=== PATIENT | female | born 1955 | race Caucasian/White ===

== ENCOUNTER → 2017-03-14 12:45 | Outpatient (CLI) | payer OTHER, MEDICAID, SELFPAY ==
--- NOTE | 2017-03-14 13:45 | RAD_ITS ---
STUDY: SWALLOWING STUDY REASON FOR EXAM: Female, 62 years old. Possible aspiration. TECHNIQUE: The examination was performed with Speech Pathology in attendance. Under fluoroscopic observation, the patient ingested thin barium, thick barium, barium pudding, and barium coated cracker. FLUOROSCOPY TIME: 1:42 minutes/seconds. 1550 fluoroscopic images were obtained. RADIOLOGIST INVOLVEMENT: Radiologist was present and providing direct supervision. COMPARISON: None. FINDINGS: The following was observed during swallowing of the various mixtures of barium: Thin Barium: There was no evidence of aspiration or laryngeal penetration. Barium Pudding: There was no evidence of aspiration or laryngeal penetration. Barium Coated Cracker: There was no evidence of aspiration or laryngeal penetration. RAD/Swallowing Function w/Video IMPRESSION: Normal tailored barium swallow study. No evidence of increased risk for aspiration. The swallow study findings were discussed with the patient by the speech pathologist at the conclusion of the examination. Please see speech pathology report for more information and recommendations. Electronically Signed: Lance Back MD at 14:30 EST Tel [phone], Service support ,
--- NOTE | 2017-03-14 14:00 | SP.MBSS_ITS ---
PRIMARY / SECONDARY DIAGNOSIS: dysphagia (R13.10) REFERRING PHYSICIAN: Dr. Pete Bazzi MD CURRENT DIET: regular textures, thin liquids DENTITION: WFL MENTAL STATUS: WFL RESPIRATORY STATUS: O2 at 3L/min via nasal cannula PREVIOUS MODIFIED BARIUM SWALLOW STUDY: none REASON FOR REFERRAL: Patient is a 62 year old female currently admitted to [facility] referred for a modified barium swallow (MBS) study to objectively assess the Patients oropharyngeal swallow function under fluoroscopy secondary to the diagnosis of recurrent pneumonias with E. coli and MRSA complicated by the Patients severely deconditioned and weakened following multiple recent hospital admissions complicated by steroid-induced myopathy. Patient and Patients present, both report intermittent coughing with ingestion of solids and liquids, with the Patients holistic specialist recommending MBS completion due to concern that the Patient is aspirating repeatedly leading to recurrent pneumonias. No formal workup completed to date regarding dysphagia, with the Patient reporting frustration over her current medical presentation, reports weight has decreased over the last 2 months. 03/08/2017 CT/Chest without Contrast revealed persistent right upper lobe nodules, which do appear slightly smaller than the prior study; evidence of cavitation within one of these lesions , differential considerations include infection, inflammatory processes, or malignancy; may benefit from a PET/CT or continued short-term interval follow-up , tissue sampling may ultimately be necessary; patchy bilateral airspace disease , increased from the prior study may represent superimposed pneumonia. MEDICAL HISTORY: Chronic obstructive lung disease, steroid induced myopathy, suspected aspiration into airway, asthma, gastroesophageal reflux disease, recurrent healthcare associated and MRSA pneumonia, acute respiratory failure, pulmonary embolism, suspected acute bronchiolitis, healthcare-associated pneumonia, benign essential hypertension, atrial fibrillation with rapid ventricular response, history of pulmonary embolism, atrial tachycardia, precordial chest pain, hyperlipidemia, morbid obesity, diabetes mellitus, obstructive sleep apnea , acute kidney injury, insomnia, allergic rhinitis, deep venous thrombosis, venous thromboembolism, weakness, coarse tremors, severe sepsis, umbilical hernia, cellulitis of right lower extremity STUDY FINDINGS: Patient participated in a Modified Barium Swallow (MBS) study on 03/14/2017. Dr. Back was the radiologist present for this evaluation. This study was recorded in the lateral view and images were sent to PACs for storage. The following consistencies were presented to this patient for analysis of oropharyngeal swallow function: thin liquids, pudding, and a regular textured, Anomi Doone cookie. Results of the MBS are as follows: PENETRATION / ASPIRATION SCALE (LONG): 1 = does not enter airway 2 = enters airway/above vocal folds/ejected 3 = enters airway/above vocal folds/not ejected 4 = enters airway/contacts vocal folds/ejected 5 = enters airway/contacts vocal folds/not ejected 6 = enters airway/below vocal folds/ejected 7 = enters airway/below vocal folds/not ejected despite effort 8 = enters airway/below vocal folds/no effort PENETRATION / ASPIRATION SCALE (SCORE): Thin liquid - 5 mL tsp.: 1 Thin liquids via cup (single sip): 1 Thin liquids via cup (single sip): 1 Thin liquids via cup (single sip): 1 Thin liquids via cup (sequential swallows): 1 Thin liquids via straw (single sip): 1 Thin liquids via straw (single sip): 1 Thin liquids via straw (sequential swallows): 1 Pudding via spoon: 1 Regular textured cookie: 1 Thin liquids via straw (single sip): 1 Thin liquids via straw (sequential swallows): 1 IMPRESSION: DIAGNOSIS: mild oropharyngeal dysphagia (R13.12) ORAL PHASE CHARACTERIZED BY: LABIAL SEAL: no labial escape TONGUE CONTROL DURING BOLUS MANIPULATION: intermittent posterior escape of less than half of bolus with thin liquids BOLUS PREPARATION / MASTICATION: slow prolonged chewing/mashing with complete recollection BOLUS TRANSPORT / LINGUAL MOTION: brisk tongue motion ORAL RESIDUE: intermittent trace residue lining oral structures PHARYNGEAL PHASE CHARACTERIZED BY: INITIATION OF PHARYNGEAL SWALLOW: bolus head in valleculae at first hyoid excursion SOFT PALATE ELEVATION: no bolus between soft palate and pharyngeal wall LARYNGEAL ELEVATION: complete superior movement of thyroid cartilage with complete approximation of arytenoids cartilage to epiglottic petiole ANTERIOR HYOID EXCURSION: partial anterior movement EPIGLOTTIC MOVEMENT: complete epiglottic inversion LARYNGEAL VESTIBULE CLOSURE AT HEIGHT OF SWALLOW: complete laryngeal vestibule closure with no air/contrast in laryngeal vestibule PHARYNGEAL STRIPPING WAVE: pharyngeal stripping wave present / complete PHARYNGOESOPHAGEAL SEGMENT OPENING: complete distension and complete duration with no obstruction of flow TONGUE BASE RETRACTION: trace column of contrast between tongue base and posterior pharyngeal wall PHARYNGEAL RESIDUE: trace residue within or on pharyngeal structures ESOPHAGEAL PHASE CHARACTERIZED BY: ESOPHAGEAL BOLUS CLEARANCE IN THE UPRIGHT POSITION: complete clearance; esophageal coating DIET TEXTURE RECOMMENDATIONS: Will recommend a regular textured, thin liquid diet. COMPENSATORY STRATEGIES RECOMMENDED: reduced bolus volume, seated upright at 90 degrees during PO intake, remain upright for 30-60 minutes post meal (GERD precaution), medications with liquid chaser INTERPRETATION OF RESULTS: Patient presents with mild oropharyngeal dysphagia (R13.12) likely secondary to presbyphagia vs. recent severe deconditioning and weakened following multiple recent hospital admissions complicated by steroid-induced myopathy. Oral phase marked by mastication inefficiency (mild) with noted intermittent mandibular fasciculation; and suboptimal lingual control (mild) with noted intermittent premature bolus loss. Pharyngeal phase marked by delayed pharyngeal swallow onset timing (mild) placing the Patient at somewhat higher risk of aspiration particularly when fatigued or consuming PO intake in suboptimal positioning. Would consider somewhat within the expected norms for age matched peers with exception of occasional mandibular fasciculations. Somewhat strong performance with consideration of the Patients extensive medical history, cannot account for fatigue during limited exposure time under fluoroscopy. RECOMMENDATIONS: Patient may benefit from 1-2 additional skilled speech-language intervention sessions targeting diet texture management via bedside trials and meal analysis completion; and training and implementation of recommended compensatory strategies, though upon review of the Patients recent medical documentation, the Patient would most likely benefit from increased therapeutic time with physical and occupational therapies. ADDITIONAL COMMENTS/RECOMMENDATIONS: Results and recommendations were discussed with the Patient immediately following MBS completion, with the Patient verbalizing understanding and agreement with all recommendations and education provided. IMAGE COUNT: 1550 G-CODES: SWALLOWING [id number] Current Status: CI SWALLOWING [id number] Goal Status: CI
== END ==
PROVIDERS: Family Provider Family Medicine; PCP Family Medicine; Visit Provider Internal Medicine Critical Care Medicine
DX: R13.10 Dysphagia, unspecified (principal)
CPT/HCPCS: 74230; 92611

== ENCOUNTER → 2017-04-04 07:03 | Outpatient (CLI) | payer OTHER, MEDICAID, SELFPAY ==
--- NOTE | 2017-04-04 07:06 | CT_ITS ---
STUDY: CT CHEST WITHOUT CONTRAST REASON FOR EXAM: Female, 62 years old. In which is nodular density in the right upper lobe. RADIATION DOSAGE (If Supplied By Facility): CTDIvol = ( 20.73 ) mGy, DLP = ( 287.22 ) mGycm TECHNIQUE: Transaxial imaging was performed without the administration of intravenous contrast material. Multiplanar coronal and sagittal images were reformatted. Individualized dose optimization techniques were used for this CT. COMPARISON: Comparison is made with prior study dated March 08, 2017. FINDINGS: The patient was scheduled for CT-guided biopsy of the nodular density in the peripheral aspect of the right upper lobe. The previously seen inhomogeneous nodular density has decreased in size. It presently measures 1.6 cm x 1.1 cm. The air fluid level is not seen at this time. Due to its location, no feasible access to the nodule wasn't available. The biopsy was canceled. CT/Limited or Localized F/U CT IMPRESSION: Interval decrease in size of the peripheral nodule in the right upper lobe. No safe access to the nodule for biopsy was present. Electronically Signed: Lance Back MD at 12:37 EST Tel [phone], Service support ,
[2017-04-04 08:37] VITALS: BP 134/59; PULSE 99; RESP 20; TEMP 37; O2SAT 99; BMI 43.0
[2017-04-04 09:03] LABS: International Normalized Ratio 1.1; Prothrombin Time (Protime)PT. 13.5 SECONDS (11.7-14.9)
[2017-04-04 09:04] LABS: Partial Thromboplast Time 25.6 Seconds (24.1-36.2)
[2017-04-04 09:09] LABS: Hematocrit 32.6 % (37-47); Mean Corp Hgb Conc 30.7 g/gl (32-36); Mean Corpuscular Hgb 31.1 pg (27.0-32.0); Mean Corpuscular Volume 101.2 fL (81-99); Mean Platelet Vol. 9.6 fl (6.2-12.0); Platelet Count 483 K/mm3 (150-450); RBC Distribution Width CV 14.9 % (11.6-14.6); RBC Distribution Width SD 53.1 fl (35.1-43.9); Red Blood Count 3.22 M/mm3 (4.2-5.4); White Blood Count 7.1 K/mm3 (4.4-11.0)
[2017-04-04 09:18] LABS: Scan Indicated on CBC? Y/N NO
== END ==
PROVIDERS: Family Provider Family Medicine; PCP Family Medicine; Visit Provider Nurse Practitioner Acute Care
DX: R91.1 Solitary pulmonary nodule (principal)
CPT/HCPCS: 36415; 76380; 85027; 85610; 85730

== ENCOUNTER 2017-04-24 07:58 | Emergency (ER) | payer OTHER, MEDICAID, SELFPAY ==
[2017-04-24 08:00] VITALS: BP 105/66; PULSE 80; RESP 20; TEMP 36.9; O2SAT 100; BMI 42.2
--- NOTE | 2017-04-24 08:01 | EKG12_ITS ---
Test Reason : SOB Blood Pressure : / mmHG Vent. Rate : 076 BPM Atrial Rate : 076 BPM P-R Int : 160 ms QRS Dur : 084 ms QT Int : 416 ms P-R-T Axes : 059 -38 -05 degrees QTc Int : 468 ms Normal sinus rhythm Left axis deviation Nonspecific T wave abnormality Abnormal ECG Confirmed by ROB CARMONA, SHAHRZAD ([id number]), online content editor DANIEL CORRALES ([id number]) on 04/27/2017 4:02:28 PM Referred By: CARISSA Confirmed By:SHAHRZAD RIVAS MD
--- NOTE | 2017-04-24 08:01 | RAD_ITS ---
STUDY: X-RAY CHEST REASON FOR EXAM: Female, 62 years old. Shortness of breath and dyspnea TECHNIQUE: Single AP portable view of the chest. COMPARISON: 02/09/2017 FINDINGS: In the right lateral midlung field, there is a questionable nodule versus overlapping structures measuring 1.5 cm. The lungs are clear and expanded. There is no demonstrated pleural abnormality. Normal size heart. Normal mediastinum and tami. Normal visualized pulmonary arteries. Normal visualized aortic arch and descending thoracic aorta. Normal visualized thoracic spine. Right shoulder arthroplasty There is no demonstrated abnormality of the visualized soft tissue structures of the upper abdomen. RAD/Chest 1 View (Portable) IMPRESSION: No acute cardiopulmonary disease. Questionable nodule in the right midlung field. Recommend oblique views versus CT to further evaluate Electronically Signed: Pawan Bear DO at 9:24 EDT Tel , Service support ,
[2017-04-24 08:09] VITALS: O2SAT 100
[2017-04-24] MEDS: Ipratropium/Albuterol Sulfate 3 ML AMPUL.NEB INHALATION (08:10)
[2017-04-24 08:12] VITALS: PULSE 79; RESP 14
--- NOTE | 2017-04-24 08:15 | ED.VISSUMM ---
- ER Visit Summary Date of Service: 04/24/17 Chief Complaint: [] Cough shortness of breath for weeks History of Present Illness: The patient is a 62 F [] is in a [place] [facility] history of asthma on 2 L home O2 she indicates that December and January she had a very rough time with report recurrent pneumonias high doses of steroids that caused a diffuse myopathy and weakness she ended up in a [place] [facility] [place] for the last week or 2 she has had a harsh cough productive yellow mucus her medications have been adjusted last week including new aerosols amoxicillin and she reports despite that she still short of breath had more shortness of breath at night and she was brought into the emergency department no chest pain no abdominal pain normal bowel bladder habits she is able to move her legs but has generalized weakness she has no history of NV PE or DVT does have generalized anxiety Physical Examination: [] L signs are within normal range her pulse ox is 99 and 2 L she has a harsh cough here that is dry her nose is unremarkable her lungs are diminished bilaterally heart tones are distant abdomen is obese but soft she has atrophied lower extremities with 1-2+ edema that is not new she is able to move her feet but complains of generalized weakness she is awake alert answering questions appropriately Test Results: [] Emergency Department Course and Treatment: [] differential extensive Since labs x-ray unremarkable she has a chronic lesion in the right lung with Dr. Bazzi is aware of and they are following,. Dr. Bazzi did come by to see the patient she is much improved he feels she can safely be discharged home to nursing center to continue her therapy he wants her to get as needed albuterol aerosols every 2 hours as needed and otherwise follow her treatment plan and return as needed, he will be seeing her as an outpatient patient is improved she agrees to this plan Treatment Plan: [] Disposition: [] Stable, back to [place] [facility] Impression: [] Exacerbation of asthma improved This note was generated with [employer] dictation software. It may contain incorrect words, spelling, and punctuation that were not noted in review of the chart prior to signing ED Disposition - Plan for ED Patient: Chief Complaint: Shortness of Breath Referrals: Ervin Donnelly MD [Primary Care Provider] -
[2017-04-24 08:56] LABS: Absolute Lymphocyte Count 1.28 X10^3/ul (0.83-4.51); Absolute Neutrophil Count 3.3 X10^3/uL (2.0-7.7); Basophil# 0.03 X10^3/uL; Basophil% 0.5 % (0-1); Eosinophil# 0.13 X10^3/uL; Eosinophils% 2.3 % (0-5); Hematocrit 31.1 % (37-47); Hemoglobin 9.7 g/dl (12.0-15.0); Lymphocyte # 1.28 X10^3/ul (4.0); Lymphocyte % 22.9 % (19-41); Mean Corp Hgb Conc 31.2 g/gl (32-36); Mean Corpuscular Hgb 29.9 pg (27.0-32.0); Mean Platelet Vol. 9.2 fl (6.2-12.0); Monocyte# 0.83 X10^3/uL; Monocyte% 14.8 % (0-10); Neutrophil # 3.31 X10^3/uL (2.7-7.7); Neutrophil % 59.3 % (47-70); Platelet Count 412 K/mm3 (150-450); RBC Distribution Width CV 14.9 % (11.6-14.6); RBC Distribution Width SD 52.4 fl (35.1-43.9); Red Blood Count 3.24 M/mm3 (4.2-5.4); White Blood Count 5.6 K/mm3 (4.4-11.0)
[2017-04-24 09:04] LABS: POSITIVE COUNT NO; POSITIVE DIFFERENTIAL NO; POSITIVE MORPHOLOGY NO
[2017-04-24 09:07] LABS: Anion Gap 12 (5-15); BUN 6 mg/dL (7-18); BUN/Creat Ratio 7.3 RATIO (10-20); Calcium,Total 7.8 mg/dL (8.5-10.1); Chloride 107 mmol/L (98-107); Creatinine, Serum 0.82 mg/dL (0.55-1.02); EST Glomerular Filtration Rate 74 mL/min (>60); Est Glom Filt Rate - Afr Amer 90 mL/min (>60); Estimated Creatinine Clearance 50.44 ml/min; Glucose 83 mg/dL (74-106); Potassium 3.5 mmol/L (3.5-5.1); Sodium Level 142 mmol/L (136-145)
[2017-04-24 09:41] VITALS: BP 115/78; PULSE 80; RESP 12; O2SAT 99
--- NOTE | 2017-04-24 10:26 | ED.DEP ---
ED Disposition - Plan for ED Patient: Chief Complaint: Shortness of Breath Instructions: ED Reactive Airway Disease Prescriptions: Albuterol Aerosols [Ventolin Aerosols] 2.5 mg INHALATION Q4H PRN #25 vial Referrals: Ervin Donnelly MD [Primary Care Provider] -
--- NOTE | 2017-04-24 10:29 | ED.RN ---
lab reported positive for flu b
[2017-04-24 10:33] VITALS: BP 112/64; PULSE 81; RESP 12; O2SAT 98
[2017-04-24 11:00] VITALS: PULSE 82; RESP 18; O2SAT 99
[2017-04-24 11:58] LABS: BNP,B-Type NATRIURETIC PEPTIDE 38.7 pg/mL (0-100)
== END 2017-04-24 11:02 | disposition home or self-care (01) ==
PROVIDERS: Emergency Provider Emergency Medicine; Family Provider Family Medicine; PCP Family Medicine
DX: J45.901 Unspecified asthma with (acute) exacerbation (principal); F41.1 Generalized anxiety disorder; Z87.01 Personal history of pneumonia (recurrent); Z99.81 Dependence on supplemental oxygen
CPT/HCPCS: 71045; 80048; 83880; 84484; 85025; 87804; 93005; 94640; 99285; A4216

== ENCOUNTER → 2017-06-21 12:48 | Outpatient (CLI) | payer OTHER, MEDICAID, SELFPAY ==
--- NOTE | 2017-06-21 12:50 | CT_ITS ---
STUDY: CT CHEST WITHOUT CONTRAST REASON FOR EXAM: Female, 62 years old. ABNORMAL CHEST IMAGING RADIATION DOSAGE (If Supplied By Facility): CTDIvol = ( 19.56 ) mGy, DLP = ( 669.97 ) mGycm TECHNIQUE: Transaxial imaging was performed without the administration of intravenous contrast material. Individualized dose optimization techniques were used for this CT. COMPARISON: CR Chest Apr 24 2017 8:18am Ct 1.23.18 FINDINGS: There is no pneumothorax. Nodule in the mid aspect of the right upper lobe measuring 20 x 20 mm. Series 4 image 37. In the periventricular aspect of the right upper lobe there is a cavitary lesion measuring 25 x 14 mm. Series 4 image 52. Total right shoulder arthroplasty. There are calcifications of the coronary arteries. Normal mediastinum. Normal hilar regions. Normal pulmonary arteries. There is atherosclerotic calcification of the aortic arch with tortuosity and elongation of the aortic arch and descending thoracic aorta. There are multi-level degenerative changes of the thoracic spine. There is no demonstrated abnormality of the visualized upper abdomen. 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 One of the lesions is cavitary. PET scan could further evaluate. Electronically Signed: Karthik Bethea MD at 23:07 EDT , Service support ,
== END ==
PROVIDERS: Family Provider Family Medicine; PCP Family Medicine; Visit Provider Internal Medicine Critical Care Medicine
DX: R93.8 Abnormal findings on diagnostic imaging of other specified body structures (principal)
CPT/HCPCS: 71250

== ENCOUNTER → 2017-06-29 14:09 | Outpatient (CLI) | payer OTHER, MEDICAID, SELFPAY ==
[2017-07-03 20:06] LABS: Alternaria alternata 0.18 kU/L (Class 0/I); Bermuda Grass <0.10 kU/L (Class 0); Bluegrass, Kentucky <0.10 kU/L (Class 0); Cat Hair/Dander, Standard <0.10 kU/L (Class 0); D farinae Mite <0.10 kU/L (Class 0); D pteronyssinus <0.10 kU/L (Class 0); Dog Epithelia <0.10 kU/L (Class 0); Elm, American White <0.10 kU/L (Class 0); Oak, White <0.10 kU/L (Class 0); Plantain, English <0.10 kU/L (Class 0); Ragweed, Short/Common <0.10 kU/L (Class 0)
[2017-07-04 03:06] LABS: Aspirgillus flavus Negative (Neg:<1:1); Aspirgillus fumigatus Negative (Neg:<1:1); Aspirgillus niger Negative (Neg:<1:1)
[2017-07-04 10:35] LABS: Mouse Urine <0.10 kU/L (Class 0)
[2017-07-04 10:36] LABS: Immunoglobulin E 108 IU/mL (0-100)
== END ==
PROVIDERS: Family Provider Family Medicine; PCP Family Medicine; Visit Provider Nurse Practitioner Acute Care
DX: J45.909 Unspecified asthma, uncomplicated (principal)
CPT/HCPCS: 36415; 82785; 86003; 86606

== ENCOUNTER → 2017-07-26 12:40 | Outpatient (CLI) | payer OTHER, MEDICAID, SELFPAY ==
[2017-07-26 14:12] LABS: Hematocrit 36.4 % (37-47); Hemoglobin 10.9 g/dl (12.0-15.0); Mean Corp Hgb Conc 29.9 g/gl (32-36); Mean Corpuscular Hgb 30.4 pg (27.0-32.0); Mean Corpuscular Volume 101.7 fL (81-99); Mean Platelet Vol. 10.3 fl (6.2-12.0); Platelet Count 416 K/mm3 (150-450); RBC Distribution Width CV 13.6 % (11.6-14.6); RBC Distribution Width SD 51.2 fl (35.1-43.9); Red Blood Count 3.58 M/mm3 (4.2-5.4)
[2017-07-26 14:34] LABS: Anion Gap 9 (5-15); BUN 15 mg/dL (7-18); BUN/Creat Ratio 14.2 RATIO (10-20); Calcium,Total 9.6 mg/dL (8.5-10.1); Chloride 107 mmol/L (98-107); Creatinine, Serum 1.06 mg/dL (0.55-1.02); EST Glomerular Filtration Rate 56 mL/min (>60); Est Glom Filt Rate - Afr Amer 67 mL/min (>60); Glucose 85 mg/dL (74-106); Iron 46 ug/dL (50-170); Potassium 4.2 mmol/L (3.5-5.1); Sodium Level 144 mmol/L (136-145); T4 Free Direct 1.19 ng/dL (0.76-1.46); Thyroid Stim Hormone (TSH) 2.69 uIU/mL (0.358-3.74)
[2017-07-26 14:39] LABS: Scan Indicated on CBC? Y/N NO
== END ==
PROVIDERS: Family Provider Family Medicine; PCP Family Medicine; Visit Provider Family Medicine
DX: I48.91 Unspecified atrial fibrillation (principal); D64.9 Anemia, unspecified; E03.9 Hypothyroidism, unspecified
CPT/HCPCS: 36415; 80048; 83540; 84439; 84443; 85027

== ENCOUNTER → 2017-08-01 10:38 | Outpatient (CLI) | payer OTHER, MEDICAID, SELFPAY ==
--- NOTE | 2017-08-01 10:43 | ECHOCS_ITS ---
Reason For Study: Afib, Aflutter Procedure This was a 2D Doppler, Color Flow transthoracic echocardiogram. Exam performed in department. Left Ventricle Normal size and thickness. The estimated ejection fraction is 65 %. Stage 1 diastolic dysfunction. No regional wall motion abnormalities noted. Right Ventricle Normal size and thickness. Normal systolic function. Atria Normal left atrium. Normal right atrium. Normal atrial septum. Mitral Valve The mitral valve is structurally normal. No prolapse or stenosis seen. Trivial mitral valve insufficiency. Tricuspid Valve Normal tricuspid valve. Trivial tricuspid valve insufficiency. Right ventricular systolic pressure estimated to be 37 mmHg. Mild pulmonary hypertension. Aortic Valve Trisinus/trileaflet aortic valve. Mild diffuse aortic valve thickening. Trivial aortic valve insufficiency. Pulmonic Valve Normal pulmonic valve. Trivial pulmonic valve insufficiency. Great Vessels Normal aortic root. Normal arch. Normal inferior vena cava. Inferior vena cava collapse with sniff. Pericardium/Pleural No pericardial effusion. Medication Definity0.4ml given slow IV push to enhance endocardial definition. MMode/2D Measurements & Calculations LVIDd: 4.5 cm IVSd: 0.95 cm Ao root diam: 3.1 cm LVIDs: 2.8 cm LVPWd: 0.96 cm RVDd: 3.2 cm FS: 38.3 % LAV(MOD-bp): 50.1 ml LA A4 area: 20.0 cm2 RA A4 area: 15.3 cm2 LAV(MOD-bp) Indexed: 26.6 ml/m2 LAV(MOD-sp2): 39.1 ml LAV(MOD-sp4): 50.1 ml Doppler Measurements & Calculations MV E max lei: 116.9 cm/sec Lat Peak E' Lei: 10.2 cm/sec Med Peak E' Lei: 8.5 cm/sec MV A max lei: 94.5 cm/sec E/E' lat: 11.5 E/E' med: 13.7 MV E/A: 1.2 Ao V2 max: 172.7 cm/sec LV V1 max: 134.0 cm/sec PA V2 max: 100.9 cm/sec Ao max P.9 mmHg LV V1 max P.2 mmHg Ao V2 mean: 126.1 cm/sec Ao mean P.9 mmHg Ao V2 VTI: 37.9 cm TR max lei: 284.2 cm/sec TR max P.3 mmHg Interpretation Summary The estimated ejection fraction is 65 %. Stage 1 diastolic dysfunction. Trivial mitral valve insufficiency. Trivial tricuspid valve insufficiency. Right ventricular systolic pressure estimated to be 37 mmHg. Trivial aortic valve insufficiency. Compared to echo report dated 01/17/2017, no appreciable changes noted. The study was technically difficult. Contrast injection was performed. Ordering Physician: Darrian Woods Referring Physician: Terry Donnelly Performed By: Sarah Liu RDCS, RVT
== END ==
PROVIDERS: Family Provider Family Medicine; PCP Family Medicine; Visit Provider Internal Medicine Cardiovascular Disease
DX: I47.1 Supraventricular tachycardia (principal); I48.91 Unspecified atrial fibrillation
CPT/HCPCS: 93306; Q9957; A4216; C8929

== ENCOUNTER → 2017-08-04 12:53 | Outpatient (CLI) | payer OTHER, MEDICAID, SELFPAY ==
[2017-08-04 15:59] LABS: Absolute Lymphocyte Count 2.29 X10^3/ul (0.83-4.51); Absolute Neutrophil Count 3.7 X10^3/uL (2.0-7.7); Basophil# 0.03 X10^3/uL; Basophil% 0.4 % (0-1); Eosinophil# 0.13 X10^3/uL; Eosinophils% 1.9 % (0-5); Hemoglobin 11.1 g/dl (12.0-15.0); Lymphocyte # 2.29 X10^3/ul (4.0); Mean Corp Hgb Conc 30.8 g/gl (32-36); Mean Corpuscular Hgb 31.4 pg (27.0-32.0); Monocyte# 0.76 X10^3/uL; Neutrophil # 3.72 X10^3/uL (2.7-7.7); Neutrophil % 53.6 % (47-70); Platelet Count 369 K/mm3 (150-450); RBC Distribution Width CV 12.9 % (11.6-14.6); RBC Distribution Width SD 47.2 fl (35.1-43.9); Red Blood Count 3.53 M/mm3 (4.2-5.4); White Blood Count 6.9 K/mm3 (4.4-11.0)
[2017-08-04 16:13] LABS: POSITIVE COUNT NO; POSITIVE DIFFERENTIAL NO; POSITIVE MORPHOLOGY NO
[2017-08-04 16:23] LABS: Anion Gap 7 (5-15); BUN 22 mg/dL (7-18); BUN/Creat Ratio 19.5 RATIO (10-20); Calcium,Total 9.2 mg/dL (8.5-10.1); Chloride 106 mmol/L (98-107); Creatinine, Serum 1.13 mg/dL (0.55-1.02); EST Glomerular Filtration Rate 52 mL/min (>60); Est Glom Filt Rate - Afr Amer 62 mL/min (>60); Glucose 91 mg/dL (74-106); Potassium 3.5 mmol/L (3.5-5.1); Sodium Level 140 mmol/L (136-145)
--- NOTE | 2017-08-05 09:34 | PFT ---
INTRODUCTION: The patient is a 62-year-old female currently under the care of myself the presents for pulmonary function testing secondary to a diagnosis of asthma. Respiratory therapy reports good patient effort. Bronchodilators were used during testing. INTERPRETATION: Forced expiration spirometry demonstrates no evidence of a large airways obstructive ventilatory defect. There was no significant response to aerosolized bronchodilators, based upon strict ATS criteria. Spirograms are of good quality and plateau gradually. Body plethysmography was performed and reveals lung volumes to be within normal limits. Diffusing capacity by single breath CO is moderately reduced at 59% of predicted. IMPRESSION: These pulmonary function studies demonstrate the presence of an isolated moderate reduction in diffusing capacity. There are no previous pulmonary function studies available for comparison.
== END ==
PROVIDERS: Family Provider Family Medicine; PCP Family Medicine; Visit Provider Nurse Practitioner Acute Care
DX: J45.909 Unspecified asthma, uncomplicated (principal); I10 Essential (primary) hypertension
CPT/HCPCS: 36415; 80048; 85025; 94060; 94726; 94729

== ENCOUNTER → 2017-08-25 13:49 | Outpatient (CLI) | payer OTHER, MEDICAID, SELFPAY ==
[2017-08-25 15:49] LABS: Anion Gap 8 (5-15); BUN 22 mg/dL (7-18); BUN/Creat Ratio 21.2 RATIO (10-20); Calcium,Total 9.6 mg/dL (8.5-10.1); Chloride 104 mmol/L (98-107); Creatinine, Serum 1.04 mg/dL (0.55-1.02); EST Glomerular Filtration Rate 57 mL/min (>60); Est Glom Filt Rate - Afr Amer 69 mL/min (>60); Glucose 98 mg/dL (74-106); Sodium Level 142 mmol/L (136-145)
== END ==
PROVIDERS: Family Provider Family Medicine; PCP Family Medicine; Visit Provider Internal Medicine Cardiovascular Disease
DX: R00.0 Tachycardia, unspecified (principal); I10 Essential (primary) hypertension; I47.1 Supraventricular tachycardia
CPT/HCPCS: 36415; 80048

== ENCOUNTER → 2017-09-06 13:41 | Outpatient (CLI) | payer OTHER, MEDICAID, SELFPAY ==
--- NOTE | 2017-09-06 13:42 | CT_ITS ---
STUDY: CT CHEST/THORAX WITHOUT CONTRAST REASON FOR EXAM: Female, 62 years old. Nodule follow-up. RADIATION DOSAGE (If Supplied By Facility): CTDIvol = ( 15.93 ) mGy, DLP = ( 573.19 ) mGycm TECHNIQUE: Transaxial imaging was performed without the administration of intravenous contrast material. Multiplanar coronal and sagittal images were reformatted. Individualized dose optimization techniques were used for this CT. COMPARISON: Portable AP upright chest x-ray April 24, 2017; noncontrast CT chest/thorax June 21, 2017. FINDINGS: Mildly irregular/spiculated masslike lobe lesion on series 4 image 35, series 6 and image 137 is unchanged. On that same axial image there is a stable 4 mm nodule in the anterior right upper lobe. A 6-7 mm nodular density in the lateral right upper lobe on series 4 image 29 is also unchanged. A 9.5 x 10 x 9.5 mm nodule in the anterior periphery of the right upper lobe on series 4 image 42, series 601 image 139 is increased in size, now abutting the anterior pleural surface. 2 adjacent subcentimeter nodular densities just posterior to this lesion are unchanged. Partially cavitated 2.7 x 1.65 x 1.15 cm posterior lateral inferior right upper lobe mass with mild spiculation and retraction of the posterior minor fissure is unchanged. 2 mm nodule in the posterolateral periphery of the right lower lobe on series 4 image 75 is decreased in size. Stable focal scarring in the anterolateral periphery of the right middle lobe on image 79. Stable 3 mm nodular densities in the lingula of left upper lobe on series 4 images 54 and 59. 4-5 mm nodular density in the lingula on series 4 image 52 is better defined today. 7 mm nodule in the anterior left upper lobe on series 4 is 26, series 602 image 96 is unchanged. There is no demonstrated pleural abnormality. Normal heart and pericardium. There are calcifications of the coronary arteries. There is a moderately fatty replaced precarinal lymph node. No new adenopathy. Normal hilar regions. Normal unenhanced pulmonary arteries. There is stable atherosclerotic tortuosity of the aortic arch and descending thoracic aorta. There are multi-level degenerative changes of the visualized spine. There is a thoracolumbar S-shaped scoliosis. There are old healed fracture formation of the lateral right 5-9 ribs. The patient has undergone prior right shoulder arthroplasty, and a right humeral prosthesis is again noted. There is no demonstrated abnormality of the visualized upper abdomen. CT/Chest without Contrast IMPRESSION: 1. Increased size of anterior right upper lobe nodule, now measuring 10 mm in diameter and abutting the anterior pleural surface. Correlation with PET scan may be useful. 2. Numerous additional bilateral pulmonary nodules, as well as a partially cavitating masslike density in the lateral periphery of the right upper lobe, are unchanged. 3. Atherosclerotic calcifications of the coronary arteries and thoracic aorta. 4. Degenerative changes and mild S-shaped scoliosis of the thoracolumbar spine. There are old healed fracture deformities of the lateral right 5-9 ribs. 5. Prior right shoulder arthroplasty with right humeral prosthesis. Electronically Signed: Geo Iniguez MD at 20:05 EDT , Service support ,
== END ==
PROVIDERS: Family Provider Family Medicine; PCP Family Medicine; Visit Provider Nurse Practitioner Acute Care
DX: R93.8 Abnormal findings on diagnostic imaging of other specified body structures (principal)
CPT/HCPCS: 71250

== ENCOUNTER → 2017-09-13 15:32 | Outpatient (CLI) | payer OTHER, MEDICAID, SELFPAY ==
[2017-09-13 17:44] LABS: Hematocrit 37.5 % (37-47); Hemoglobin 11.7 g/dl (12.0-15.0); Mean Corp Hgb Conc 31.2 g/gl (32-36); Mean Corpuscular Hgb 30.8 pg (27.0-32.0); Mean Corpuscular Volume 98.7 fL (81-99); Mean Platelet Vol. 10.5 fl (6.2-12.0); Platelet Count 340 K/mm3 (150-450); RBC Distribution Width CV 12.8 % (11.6-14.6); White Blood Count 6.6 K/mm3 (4.4-11.0)
[2017-09-13 17:48] LABS: Scan Indicated on CBC? Y/N NO
[2017-09-13 18:01] LABS: Anion Gap 9 (5-15); BUN 20 mg/dL (7-18); BUN/Creat Ratio 18.7 RATIO (10-20); Calcium,Total 9.1 mg/dL (8.5-10.1); Chloride 106 mmol/L (98-107); Creatinine, Serum 1.07 mg/dL (0.55-1.02); EST Glomerular Filtration Rate 55 mL/min (>60); Est Glom Filt Rate - Afr Amer 67 mL/min (>60); Ferritin 39 ng/mL (8-252); Glucose 93 mg/dL (74-106); Iron 40 ug/dL (50-170); Sodium Level 145 mmol/L (136-145)
[2017-09-13 18:05] LABS: Rheumatoid Factor < 10.0 IU/mL (<15)
[2017-09-15 15:59] LABS: ANTINUCLEAR ANTIBODIES DIRECT Negative (Negative)
[2017-09-16 11:44] LABS: CCP IgG Antibodies 7 units (0-19); Cytoplasmic Ab (C-ANCA) <1:20 titer (Neg:<1:20); Perinuclear Ab (P-ANCA) <1:20 titer (Neg:<1:20)
== END ==
PROVIDERS: Internal Medicine Critical Care Medicine; Family Provider Family Medicine; PCP Family Medicine; Visit Provider Family Medicine
DX: R91.1 Solitary pulmonary nodule (principal); D64.9 Anemia, unspecified
CPT/HCPCS: 36415; 80048; 82728; 83540; 85027; 86038; 86200; 86225; 86235; 86256; 86431

== ENCOUNTER → 2017-09-19 08:17 | Outpatient (CLI) | payer OTHER, MEDICAID, SELFPAY ==
--- NOTE | 2017-09-19 07:00 | PET_ITS ---
EXAMINATION: FDG PET CT INDICATIONS: A 62-year-old female with reported history of pulmonary nodularity. COMPARISON EXAMINATION: CT of the chest report dated 09/06/17. INDEX LESION SIZE SUV INTERPRETATION Right upper hemithorax pulmonary parenchyma, right upper lobe 14.6 mm x 21.6 mm (frame 192) 3.8 Fulfills quantitative criteria for viable neoplasm, definitive histopathologic analysis is recommended Right upper hemithorax pulmonary parenchyma, right upper lobe 1.9 Quantitative criteria for viable neoplasm are not fulfilled Additional bilateral hemithorax pulmonary parenchyma 0.9 (max) Quantitative criteria for viable neoplasm are not fulfilled TECHNIQUE: Following the intravenous administration of 12.95 mCi of F-18 deoxyglucose via the left wrist, multiplanar image acquisitions of the neck, chest, abdomen and pelvis to level of mid thigh, obtained at one hour post radiopharmaceutical administration contemporaneously interpreted with the current CT of the neck, chest, abdomen and pelvis to level of mid thigh, dated 09/19/[address] of the chest report dated 09/06/17 reveal: SERUM GLUCOSE LEVEL: 142 mg/dl. HEIGHT: 61 inches. WEIGHT: 196 lbs. FINDINGS: 1. An increase in glucose metabolism is manifest in the right upper hemithorax pulmonary parenchyma, right upper lobe generating a calculated maximum standard uptake value of 3.8. Uptake corresponds to a spiculate, noncalcified density noted on review of CT of the thorax dated 09/19/17 demonstrating a maximal axial diameter of approximately 14.6 mm (transverse) x 21.6 mm (AP). 2. A second focus of enhanced glucose concentration is demonstrated in the right mid lateral hemithorax pulmonary parenchyma, right upper lobe generating a calculated maximum standard uptake value of 1.9. Uptake corresponds to a partially-cavitated, noncalcified 24.5 mm density on review of CT of the thorax dated 09/19/17. 3. Several additional barely perceptible foci of increased radiotracer concentration are manifest in the bilateral hemithorax pulmonary parenchyma rendering a calculated maximum standard uptake value of 0.9. 4. Normal physiologic distribution of the radiopharmaceutical is apparent in the hepatic (3.0) and splenic parenchyma, both renal units, bladder and visualized intestinal tract. There is symmetric and preserved glucose metabolism noted in the visualized portion of the frontal, occipital, temporal and parietal lobes of the cerebral cortex, as well as cerebral hemispheres and basal ganglia. Diffuse intestinal tract activity is noted throughout all four quadrants of the abdominal-pelvic retroperitoneum, mesentery consistent with normal physiologic distribution of the radiopharmaceutical. Prominent glucose concentration is observed in the descending thoracic aorta. Pertinent CT findings are as follows. CHEST: Additional subcentimeter parenchymal densities noted in the bilateral hemithorax demonstrate no evidence of quantitatively significant increased glucose metabolism. Right-left axillary soft tissue densities with fatty hilus formation are ametabolic. Atherosclerotic calcification is defined in the thoracic aorta without evidence of dilatation, aneurysm formation. Coronary arterial calcification is observed. ABDOMEN AND PELVIS: Atherosclerotic calcification is defined in the abdominal aorta without evidence of dilatation, aneurysm formation. Pelvic arterial calcification is demonstrated. Right-left subcentimeter inguinal soft tissue densities demonstrate no evidence of increased glucose avidity. The uterus appears surgically absent. SKELETAL: Degenerative changes defined in the cervical, thoracic and lumbar spine demonstrate no evidence for glucose hypermetabolism. There is evidence of a right shoulder arthroplasty with increased glucose concentration noted in the glenoid-humeral components. PET/PET/CT Tumor Base -Thigh Init IMPRESSION: 1. Increased glucose concentration noted in the right upper hemithorax pulmonary parenchyma, right upper lobe fulfills quantitative criteria for viable neoplasm. Definitive histopathologic analysis is recommended. (Tracey et al, Annals of Internal Medicine, 138:724, 2003). 2. Enhanced FDG uptake defined in the right mid lateral hemithorax pulmonary parenchyma, extending to the pleural interface does not fulfill quantitative criteria for viable neoplasm. 3. Additional subtle foci of increased radiopharmaceutical concentration noted in the bilateral hemithorax pulmonary parenchyma do not fulfill quantitative criteria for malignant transformation. 4. Prominent glucose concentration observed in the descending thoracic aorta is commensurate with activated leukocytes associated with atherosclerotic plaque formation. (Brittney et al, Clinical Nuclear Medicine 29:93, 2004). Electronic Signature Johnny Haynes D.O. Electronically Signed: Johnny Haynes DO at 21:46 EDT Tel , Service support ,
== END ==
PROVIDERS: Family Provider Family Medicine; PCP Family Medicine; Visit Provider Internal Medicine Critical Care Medicine
DX: R91.1 Solitary pulmonary nodule (principal)
CPT/HCPCS: 78815; A9552; A4216

== ENCOUNTER → 2017-09-30 08:06 | Outpatient (CLI) | payer OTHER, SELFPAY ==
[2017-09-28 11:41] LABS: Hematocrit 38.4 % (37-47); Mean Corp Hgb Conc 31.3 g/gl (32-36); Mean Corpuscular Hgb 30.3 pg (27.0-32.0); Mean Platelet Vol. 10.6 fl (6.2-12.0); Platelet Count 320 K/mm3 (150-450); RBC Distribution Width CV 12.9 % (11.6-14.6); RBC Distribution Width SD 44.6 fl (35.1-43.9); Red Blood Count 3.96 M/mm3 (4.2-5.4); Scan Indicated on CBC? Y/N NO; White Blood Count 7.4 K/mm3 (4.4-11.0)
[2017-09-28 11:57] LABS: International Normalized Ratio 1.1; Prothrombin Time (Protime)PT. 14.1 SECONDS (11.7-14.9)
[2017-09-28 11:58] LABS: Partial Thromboplast Time 27.5 Seconds (24.1-36.2)
[2017-09-30] VITALS (11 sets, daily range): BP systolic 116–172; BP diastolic 56–96; PULSE 69–89; RESP 14–22; TEMP 37.1; O2SAT 96–100; BMI 37.0
--- NOTE | 2017-09-30 | ASPIGT_PTH ---
PATIENT: LAURA SERRANO LOC: CT U#:[id number] AGE/SX: 69/F ROOM: RE09/30/[address]: MAXIME Beltran : 1955 BED: DIS: SPEC #: [id number] RECD: 09/30/17 10:12 STATUS: DELVIN WILIAM #: [id number] GAYLA: 09/30/17 00:[address]: Marie Langley NP DEPT: SURGICAL PATHOLOGY RECD BY: Siri Bravo ENTERED: 09/30/17 10:13 SP TYPE: ASP RAD OTHR DR: Dr. Terry Donnelly MD Tissues: Right upper lobe of lung, NOS Procedures: FNA Specimen Adequacy Pap Stain (control) Special Stain Group II Special Stain Group I Surgery Specimen Level IV AFB Stain (control) GMS Stain (control) Diff Quik Stain (control) Imprint (control) HEADER OPERATION: CT guided lung biopsy PRE-OP DIAGNOSIS: Mass, right lung TISSUE SUBMITTED: Right lung mass, 20g RUL MICROSCOPIC DIAGNOSIS Right lung mass, CT-guided core biopsy: Lung parenchymal tissue with chronic inflammation, fibrosis, focal areas suggestive of granuloma formation. Fragments of necrotic tissue. Special stains for acid fast bacilli and fungi are negative for organisms; matched controls are appropriate. SJ:mel 10/03/17 COMMENT The specimen is evaluated at the time of crush prep by Dr. Mendoza. Immediate Evaluation = Degenerating cellular and acellular debris. No viable malignancy is noted in the submitted specimen. Trichrome stain with matched control is also used in the evaluation of the specimen. MICROSCOPIC DESCRIPTION Slides are reviewed. GROSS DESCRIPTION Received in fixative is one container labeled with the patient's name and designated right upper lobe. The specimen consists of multiple minute and elongated fragments of light hannah soft tissue that in aggregate measure 1 x 0.3 x <0.1 cm. The specimen is totally submitted in one cassette. Four smears were obtained at the time of biopsy, two stained DQ and two stained pap. / AM:mel 09/30/17 TC:5 CPT: 34554, 15800, 41140 x2, 78529 ADDENDUM ADDENDUM ADDENDUM ADDENDUM ADDENDUM ADDENDUM ADDENDUM ADDENDUM ADDENDUM ADDENDUM 02/28/2018 09:51 ADDENDUM 02/28/2018 09:51 ADDENDUM 02/28/2018 09:51 ADDENDUM 02/28/2018 09:51 ADDENDUM 02/28/2018 09:51 This addendum is added to incorporate an outside pathology consultation report. The case was examined at [facility] (#[id number]) and the following diagnosis was rendered. Right lung mass, CT-guided core biopsy: Chronic and granulomatous inflammation with necrosis. Please see complete above mentioned consultation report in EMR
== END ==
PROVIDERS: Family Provider Family Medicine; PCP Family Medicine; Visit Provider Nurse Practitioner Acute Care
DX: R91.1 Solitary pulmonary nodule (principal); R91.8 Other nonspecific abnormal finding of lung field; J84.10 Pulmonary fibrosis, unspecified
CPT/HCPCS: 32405; 36415; 71046; 77012; 85027; 85610; 85730; 88172; 88305; 88312; 88313; 99156; 99157; J7040; A4216

== ENCOUNTER 2017-11-04 11:30 | Outpatient (RCR) | payer OTHER, MEDICAID, SELFPAY ==
--- NOTE | 2017-08-31 10:26 | HP.PTEVAL_ITS ---
Patient's Visit Information LAURA SERRANO is a 62 year old F referred to Physical Therapy by Terry Donnelly with a diagnosis of Tremors. Date of Evaluation: 08/31/17 Physical Therapist: Jyoti Aldridge - Visit Plan Frequency: 2x /Week Duration: 4 Weeks Plan: Aquatics- focus on LE and core s/s- functional mobility - Subjective Subjective: Last October- got sick- hospitalized for months - sepsis- then went to SNF then home health through the hospital. Started taking steps in Mar - has residual right sided weakeness. Patient reports that she is home now- can walk around without a AD- can reach out to touch stuff if she needs to steady. Still challenged with stairs, balance stamina. Outside she uses the rollerator. Still not driving a car- feels like she can't get the walker in/ out of the car. No limitations from MD's at this time. Right shoulder issues and back issues from previous. Thinks the core strength is so low- that she needs rest breaks for her back. Is doing exercises through home health. Lives in a ranch home with a w/c ramp to get into the house. Once inside she is on one floor but laundry is in the basement. Lives with - and her disable daughter- she is back to providing care for her. Plans to continue with [facility] after outpatient PT. Can't take anti-inflam secondary to joint pain. Mostly reports 'achy and stiffness'- Worst: 7/10 Agg: getting up in the AM Best: 1/10 Eases: moving around. Sleep: disturbed- arthritic pain does wake her up. Does have mild neuropathy- N/T in both feet- as she got sicker it progressed to her knees- now its mostly her feet. PMHX: partial right shoulder replacement, right foot surgery, hysterectomy, hernia's, HTN, a-fib, anemia. Meds: potassium, eloquis, procardia, protonix, lasix, singulair, iron tablet, synthroid, albuterol, stroid arisol. 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 Has had a lot of tests when she was sick. Still watching a lesion in the right lung. - Objective Posture: FH, RS- increased kyphosis. Gait: slightly antalgic- decreased ciro with poor heel/toe pattern. HR/TR: able with UE A. SLS: unable without UE A. Balance: standing static: good, standing dynamic: fair sitting dynamic and static: good. ROM: WFL in all planes. Strength: Ankle: 4+/5, Knee : 4+/5, Hip: 4/5 throughout Core: fair minus. Flex:HS: mod, Gastroc: mod. Sensation: grossly intact- mild less on the right medial calf - Goals Goal 1:: Patient will be I with HEP and progression Goal Time Frame: 4-6 Weeks Goal 2:: Patient will asc/desc 8 stairs recip with 1 HR Goal Time Frame: 4-6 Weeks Goal 3:: Patient will ambulate >300 feet with a normalized gait pattern with LRD Goal Time Frame: 4-6 Weeks Goal 4:: Patient will demo 5/5 strength in LE where deficit to ease ADL's Goal Time Frame: 4-6 Weeks - Rehabilitation Potential Physical Therapy Diagnosis: Patient presents with hypomobility- she has decreased strength and muscular endurance leading to poor balance and decreased ability to perform ADL's. Rehabilitation Potential: Good - Anticipated Interventions Patient/Client Instruction: Educate patient on: Benefits of Fitness Program For the Purpose of:: To improve ability to perform ADL's Therapeutic Exercise to Include: Strength training, Balance training, Body mechanics, Postural training, Flexibilty training, Gait and locomotor training, In an aquatic setting, Dynamic Lumbar Stabilization, Scapular Strength/ Stabilization For the Purpose of:: To improve performance and independence with ADL's Thank you for the opportunity to evaluate your patient. For Medicare and Medicare HMO plans, please review the plan of care and approve it. It will need to be FAXED BACK to us at [phone] for Medicare purposes. Please let me know if there are questions or concerns regarding this plan of care. Physician Signature: Date:
--- NOTE | 2017-10-06 14:53 | HP.PTREVAL ---
Terry Donnelly, It has been my pleasure to treat LAURA SERRANO over the last 9 visits for Tremors. Please see the progress note below for an update on the physical therapy plan of care! Subjective: Patient reports its going well- put away walkers, toilet bars, and ramp over the stairs. The only thing she is still using is a shower chair due to fear or slipping. Feels that she could probably do it without but is just nervous of falling. Still a little bit of challenge with stairs more up than down- likes to use both rails. Can walk around stores and uses a cart in large stores. Since doing water therapy her back has not really bothered her. Trying to progress towards land based exercises. Wants to get back on land for an I home program. No pain today- more SOB than anything else-limits stair climbing. Wants to work on balance, endurance and strength. Objective/Function: Posture: FH, RS- increased kyphosis. Gait: no deviation noted- no AD. HR/TR: able with UE A. SLS: unable without UE A. Balance: standing static: good, standing dynamic: fair sitting dynamic and static: good. ROM: WFL in all planes. Strength: Ankle: 5/5, Knee: 5/5, Hip: 4+/5 throughout Core: fair minus. Flex:HS: mod, Gastroc: mod. Sensation: grossly intact- mild less on the right medial calf. Stairs: asc/desc 8 stairs recip 2 HR. 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: 14 with UE A Plan Plan: Cont with POC- add functional activities with land based exercise- will progress to I HEP with H&W Goals Goal 1:: Patient will be I with HEP and progression Goal Time Frame: 4-6 Weeks Goal Progress: Progressing Goal 2:: Patient will asc/desc 8 stairs recip with 1 HR Goal Time Frame: 4-6 Weeks Goal Progress: Progressing Goal 3:: Patient will ambulate >300 feet with a normalized gait pattern with LRD Goal Time Frame: 4-6 Weeks Goal Progress: Goal Met Goal 4:: Patient will demo 5/5 strength in LE where deficit to ease ADL's Goal Time Frame: 4-6 Weeks Goal Progress: Progressing Goal 5:: Patient will sit to stand 15x in 30 seconds to be WFL for her age group. Goal Time Frame: 4-6 Weeks Anticipated Interventions Patient/Client Instruction: Educate patient on: Benefits of Fitness Program For the Purpose of:: To improve ability to perform ADL's Therapeutic Exercise to Include: Strength training, Balance training, Body mechanics, Postural training, Flexibilty training, Gait and locomotor training, In an aquatic setting, Dynamic Lumbar Stabilization, Scapular Strength/Stabilization For the Purpose of:: To improve performance and independence with ADL's Please do not hesitate to contact me at [phone] by phone or if you have questions or concerns regarding this new plan of care! Sincerely, Jyoti Aldridge
--- NOTE | 2017-11-07 10:05 | HP.PTDCSUM_ITS ---
HP - PT D/C Summary It has been my pleasure to treat LAURA SERRANO under orders from Terry Donnelly, for the diagnosis of Tremors for a total of 19 visit(s). Discharge Date: Please see the following information for a summary of their discharge status. - Subjective Subjective: Pt. reports overall doing great. Current pain 0/10. Some pain in morning, decreases with Tylenol, and knees sore in evenings. Little trouble sleeping at night. No trouble with ADLs. Able to drive and shop without restriction. Ready to be discharged. Feels 100% improvement. - Pain Lumbar Spine Pain Intensity (Out of 10): 0 - Overall Improvement % Improvement: 100 - Objective Objective/Function: Gait: WFL, good arm swing. Posture: FHP, kyphosis. Stairs : ascend/descend 1 HR reciprocally with slight knee pn on descent. AROM: LE bilat. WFL throughout, toe raise with UE support, heel raise 25% with UE support. Balance: able to SL bilat. with 1 hand on mat for 15 seconds with minor loss of balance. Strength: LE bilat. 5/5 throughout. - Goals Goal 1:: Patient will be I with HEP and progression Goal Progress: Progressing Goal 2:: Patient will asc/desc 8 stairs recip with 1 HR Goal Progress: Goal Met Goal 3:: Patient will ambulate >300 feet with a normalized gait pattern with LRD Goal Progress: Goal Met Goal 4:: Patient will demo 5/5 strength in LE where deficit to ease ADL's Goal Progress: Goal Met Goal 5:: Patient will sit to stand 15x in 30 seconds to be WFL for her age group. - Plan Plan: Discharge to be I with HEP; suggested and pt. interested in gym membership. - D/C Information If there are questions or concerns regarding this patient's physical therapy, please feel free to call me at [phone]. Thank you for the referral of this patient. Sincerely, Jyoti Aldridge
== END 2017-11-04 19:00 | disposition home or self-care (01) ==
LOC: PT 11:30
PROVIDERS: Family Provider Family Medicine; PCP Family Medicine; Visit Provider Family Medicine
DX: R25.1 Tremor, unspecified (principal)
CPT/HCPCS: 97110; 97113; 97161; 97164

== ENCOUNTER → 2017-12-09 16:04 | Outpatient (CLI) | payer OTHER, SELFPAY ==
--- NOTE | 2017-12-09 16:06 | CT_ITS ---
STUDY: CT CHEST WITHOUT CONTRAST REASON FOR EXAM: Female, 62 years old. Nodule follow-up. RADIATION DOSAGE (If Supplied By Facility): CTDIvol = ( 20.71 ) mGy, DLP = ( 630.80 ) mGycm TECHNIQUE: Transaxial imaging was performed without the administration of intravenous contrast material. Multiplanar coronal and sagittal images were reformatted. Individualized dose optimization techniques were used for this CT. COMPARISON: CT chest: 09/06/2017 and PET scan: 09/19/2017 FINDINGS: There are very mild emphysematous changes of the lungs with subtle small subpleural blebs. Again noted a 2.7 x 2.8 x 0.9 cm minimally cavitated elongated nodule with spiculated margins peripherally in the right upper lobe, not significantly changed since the prior exam. Anteriorly in the left upper lobe a 8 mm nodule is seen(axial image 56/222), was measured 7 mm on the previous exam. There is a 5.8 mm nodule present anteriorly in the right upper lobe(image 82/222), previously measured 4.4 mm. There is a 7 mm nodule seen peripherally in the left upper lobe(image 100/222), previously measured 4.5 mm. Stable 7.2 mm and 6.5 mm closely located nodules are seen anteriorly in the right upper lobe. There is no demonstrated pleural abnormality. Normal heart and pericardium. There are calcifications of the coronary arteries. No demonstrated significant mediastinal or hilar lymphadenopathy. Small calcified bilateral hilar lymph nodes are present, reflective of old granulomatous process. Normal unenhanced pulmonary arteries. There is atherosclerotic calcification of the aortic arch with tortuosity and elongation of the aortic arch and descending thoracic aorta. There is a borderline aneurysm of the ascending aorta with 4 cm diameter. There are multi-level degenerative changes of the thoracic spine, specifically at T11-T12 and T12-L1 levels. Dextroscoliosis of the lower thoracolumbar spine. Increased thoracic kyphosis.. Right shoulder arthroplasty/prosthesis. There is no demonstrated acute abnormality of the visualized upper abdomen. CT/Chest without Contrast IMPRESSION: 1. Multiple bilateral pulmonary nodules again noted with mild increase in size since the prior exam. 2. A 2.8 cm cavitated nodule with spiculated margins peripherally in the right upper lung lobe, unchanged. This is suspicious of neoplasm until proven otherwise. 3. Very mild pulmonary emphysema/COPD. 4. Lower thoracic/upper lumbar significant degenerative spondylosis. Electronically Signed: Monse Barrera MD at 12:42 EDT Tel , Service support ,
== END ==
PROVIDERS: Family Provider Family Medicine; PCP Family Medicine; Referring Provider Nurse Practitioner Acute Care; Visit Provider Nurse Practitioner Acute Care
DX: R91.1 Solitary pulmonary nodule (principal)
CPT/HCPCS: 71250

== ENCOUNTER → 2017-12-24 09:27 | Outpatient (CLI) | payer OTHER, SELFPAY ==
[2017-12-24 10:11] LABS: Hematocrit 39.1 % (37-47); Hemoglobin 12.6 g/dl (12.0-15.0); Mean Corp Hgb Conc 32.2 g/gl (32-36); Mean Corpuscular Hgb 31.1 pg (27.0-32.0); Mean Corpuscular Volume 96.5 fL (81-99); Mean Platelet Vol. 10.3 fl (6.2-12.0); Platelet Count 315 K/mm3 (150-450); RBC Distribution Width CV 13.3 % (11.6-14.6); RBC Distribution Width SD 45.6 fl (35.1-43.9); Red Blood Count 4.05 M/mm3 (4.2-5.4); White Blood Count 7.2 K/mm3 (4.4-11.0)
[2017-12-24 10:30] LABS: Scan Indicated on CBC? Y/N NO
[2017-12-24 10:45] LABS: Ferritin 49 ng/mL (8-252); Iron 72 ug/dL (50-170)
== END ==
PROVIDERS: Family Provider Family Medicine; PCP Family Medicine; Referring Provider Family Medicine; Visit Provider Family Medicine
DX: D64.9 Anemia, unspecified (principal)
CPT/HCPCS: 36415; 82728; 83540; 85027

== ENCOUNTER 2018-02-14 19:05 | Observation (INO) | payer OTHER, SELFPAY ==
[2018-02-12 12:35] VITALS: BMI 40.4
[2018-02-14] VITALS (7 sets, daily range): BP systolic 146–173; BP diastolic 68–86; PULSE 87–108; RESP 18; TEMP 37.2–37.3; O2SAT 96–98; BMI 38.0
[2018-02-14] MEDS: Ipratropium/Albuterol Sulfate 3 ML AMPUL.NEB INHALATION (19:40)
[2018-02-14] MEDS: Albuterol 2.5 MG/3 ML VIAL.NEB. INHALATION ×2 (19:40→19:55)
--- NOTE | 2018-02-14 19:40 | EKG12_ITS ---
Test Reason : Blood Pressure : / mmHG Vent. Rate : 083 BPM Atrial Rate : 083 BPM P-R Int : 162 ms QRS Dur : 074 ms QT Int : 366 ms P-R-T Axes : 097 -34 037 degrees QTc Int : 430 ms Normal sinus rhythm Left axis deviation Abnormal ECG Confirmed by LAURITA CARMONA, HARDIK ([id number]), television news video editor DANIEL CORRALES ([id number]) on 02/16/2018 2:00:20 PM Referred By: JAD Confirmed By:HARDIK SHAY MD
--- NOTE | 2018-02-14 19:40 | RAD_ITS ---
STUDY: X-RAY CHEST REASON FOR EXAM: Female, 63 years old. Cough. TECHNIQUE: Single AP portable view of the chest. COMPARISON: September 30, 2017. FINDINGS: Telemetry wires overlie the chest. The lungs are hyperexpanded. There is a vague density in the lateral aspect of the right upper lobe which appears slightly decreased from the prior exam. No new infiltrate or mass. There is no demonstrated pleural abnormality. Normal size heart. Normal mediastinum and tami. Normal visualized pulmonary arteries. Normal visualized aortic arch and descending thoracic aorta. The thoracic spine is obscured by the mediastinum. Stable right artificial shoulder. There is no demonstrated abnormality of the visualized soft tissue structures of the upper abdomen. RAD/Chest 1 View (Portable) IMPRESSION: Slight decrease in soft tissue density in the lateral right upper lobe when compared to the earlier study. There is no acute cardiopulmonary disease. Electronically Signed: Dave Dietz DO at 21:23 EST Tel [phone], Service support ,
--- NOTE | 2018-02-14 19:43 | ED.DCSUM_ITS ---
- ER Visit Summary Date of Service: 02/14/18 Chief Complaint: Cough, shortness of breath History of Present Illness: The patient is a 63 F presenting with cough, shortness of breath. She states her symptoms started approximately 11 days ago. [facility] and was diagnosed with influenza A. She was treated with a course of Tamiflu. She states she continues to worsen. She was seen again at the [facility] on Tuesday and was started on doxycycline. She states she has fatigue, cough, fever. She has been taking Tylenol at home. She denies chest pain. She states the myalgias and headache have improved but her cough and fever have persisted and worsened. Physical Examination: Vitals are stable. Patient is afebrile. Alert no acute distress. HEENT exam is unremarkable. Neck is supple. Lungs are wheezing bilaterally. Heart is regular rate and rhythm. Abdomen is soft nontender nondistended. Extremities are unremarkable. Skin is warm and dry. No focal neurologic deficit. Remainder of exam is unremarkable. Emergency Department Course and Treatment: Patient is given IV fluids. EKG is normal sinus rhythm rate 83 with no acute ischemic changes. CBC, chemistries unremarkable other than BUN 24, creatinine 1.34. Urinalysis unremarkable. Troponin is negative. Lactic acid is normal. Chest x-ray shows no acute process. Patient was given albuterol and Atrovent aerosols. On repeat exam she continues to have wheezing. Attempted ambulation her pulse ox remained stable but her heart rate increased and she became very weak with ambulation. 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 Will discuss with hospitalist for observation. Disposition: Observation Impression: COPD exacerbation, influenza This note was generated with Everything[employer] dictation software. It may contain incorrect words, spelling, and punctuation that were not noted in review of the chart prior to signing ED Disposition - Plan for ED Patient: Chief Complaint: Cold Sx Referrals: Ervin Donnelly MD [Primary Care Provider] -
[2018-02-14 20:13] LABS: Absolute Lymphocyte Count 1.55 X10^3/ul (0.83-4.51); Absolute Neutrophil Count 5.3 X10^3/uL (2.0-7.7); Basophil# 0.03 X10^3/uL; Basophil% 0.4 % (0-1); Eosinophil# 0.26 X10^3/uL; Eosinophils% 3.2 % (0-5); Hematocrit 40.2 % (37-47); Lymphocyte # 1.55 X10^3/ul (4.0); Mean Corp Hgb Conc 32.3 g/gl (32-36); Mean Corpuscular Hgb 30.7 pg (27.0-32.0); Monocyte# 0.96 X10^3/uL; Monocyte% 11.8 % (0-10); Neutrophil # 5.31 X10^3/uL (2.7-7.7); Neutrophil % 65.2 % (47-70); POSITIVE COUNT NO; POSITIVE DIFFERENTIAL NO; POSITIVE MORPHOLOGY NO; Platelet Count 378 K/mm3 (150-450); RBC Distribution Width CV 12.7 % (11.6-14.6); RBC Distribution Width SD 42.6 fl (35.1-43.9); Red Blood Count 4.23 M/mm3 (4.2-5.4); White Blood Count 8.1 K/mm3 (4.4-11.0)
[2018-02-14 20:30] LABS: Anion Gap 10 (5-15); BUN 24 mg/dL (7-18); BUN/Creat Ratio 17.9 RATIO (10-20); Calcium,Total 9.4 mg/dL (8.5-10.1); Chloride 105 mmol/L (98-107); Creatinine, Serum 1.34 mg/dL (0.55-1.02); EST Glomerular Filtration Rate 42 mL/min (>60); Est Glom Filt Rate - Afr Amer 51 mL/min (>60); Estimated Creatinine Clearance 33.55 ml/min; Glucose 101 mg/dL (74-106); Potassium 4.2 mmol/L (3.5-5.1); Sodium Level 142 mmol/L (136-145)
[2018-02-14 20:48] LABS: Lactic Acid 1.2 mmol/L (0.4-2.0)
[2018-02-14 21:18] LABS: Bacteria 0 SEEN /hpf (None Seen); Mucous, Urine 0 SEEN /hpf (<or=2+); Red Blood Cells-Urine 0 SEEN /hpf (0-5); White Blood Cells 0 SEEN /hpf (0-5)
[2018-02-14 21:19] LABS: Color, Urine Yellow (Yellow); Glucose, Dipstick Normal (Normal); Ketone-Dipstick Negative (Negative); Leukocyte Esterase-Dipstick Negative /ul (Negative); Nitrite-Dipstick Negative (Negative); Occult Blood-Urine Negative /ul (Negative); Protein-Dipstick Negative (Negative); Urine Bilirubin Dipstick Negative (Negative); Urine Clarity Sl. Cloudy (Clear); Urine Urobilinogen Normal (Normal)
[2018-02-14 21:37] LABS: Squamous Epithelial Cells - UA 0-5 SEEN /hpf (5-10)
--- NOTE | 2018-02-14 23:08 | HP.PCM_ITS ---
Problem List (1) COPD with acute exacerbation Status: Chronic History of Present Illness Date of Admission: 02/14/18 Chief Complaint: shortness of breath The patient is a 63 year old F with a significant history of former tobacco abuse; A. fib on Eliquis asthma; questionable COPD ; steroid-induced myopathy who presented with persistent shortness of breath that started around February 03, 2018. On February 05 [facility]. She was diagnosed with influenza A. Although her symptoms started 2 days prior she was treated with Tamiflu. Her symptoms at that time included fever, body aches, headache, cough, rhinorrhea. Even though patient completed a course of Tamiflu her symptoms has persisted. She reports productive cough of yellow sputum. Recently she received Doxycycline 100 mg that she was taking twice a day but her symptoms continued to progress. She took 6 doses of Vibramycin. She reports blood streak sputum. Her sputum is yellow and thick and with black streak as above. She reported temperature of 100.1 while at home. She sees Dr. Pete Bazzi arch support technician. Patient reported that she was sent to [facility] because of probable sarcoidosis. She reports that sarcoidosis has been ruled out.. She had a test for histoplasmosis. She has not received received the results histoplasmosis test back. However, she thinks that her histoplasmosis may be be negative since she has not received any the test re sults after a prolonged time. Her shortness of breath increased with mild activity. She reported that she had RSV infection last year and; MRSA and E. coli in her lungs previously. 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 Past Medical History Past Medical History (Chronic Problems): Chronic Problems (Last Reviewed 02/15/18 @ 06:50 by Lul Mazariegos MD) COPD with acute exacerbation (Chronic) Abnormal chest CT (Chronic) Obesity (Chronic) Chronic respiratory failure (Chronic) Asthma (Chronic) Benign essential HTN (Chronic) COLD (chronic obstructive lung disease) (Chronic) Gastroesophageal reflux disease (Chronic) Umbilical hernia (Chronic) Hx pulmonary embolism (Chronic) Morbid obesity (Chronic) Atrial tachycardia (Chronic) PVD (peripheral vascular disease) (Chronic) HTN (hypertension) (Chronic) Atrial fibrillation with rapid ventricular response (Chronic) Steroid myopathy (Chronic) Insomnia (Chronic) Allergic rhinitis (Chronic) Pulmonary embolism (Chronic) DVT (deep venous thrombosis) (Chronic) Diabetes mellitus (Chronic) Hyperlipidemia (Chronic) Venous thromboembolism (VTE) (Chronic) Obstructive sleep apnea (Chronic) Medical History: Medical History (Last Reviewed 02/15/18 @ 06:50 by Lul Mazariegos MD) Aspiration into airway (Suspected) T17.908A Obesity (Chronic) E66.9 Asthma (Chronic) J45.909 Benign essential HTN (Chronic) I10 COLD (chronic obstructive lung disease) (Chronic) J44.9 Gastroesophageal reflux disease (Chronic) K21.9 Umbilical hernia (Chronic) K42.9 Cellulitis of right lower extremity (Acute) L03.115 Hx pulmonary embolism (Chronic) Z86.711 Tachycardia (Acute) R00.0 Acute bronchiolitis (Suspected) J21.9 Morbid obesity (Chronic) E66.01 Atrial tachycardia (Chronic) I47.1 PVD (peripheral vascular disease) (Chronic) I73.9 HTN (hypertension) (Chronic) I10 ALEXYS (acute kidney injury) (Acute) N17.9 Pneumonia (Acute) J18.9 Atrial fibrillation with rapid ventricular response (Chronic) I48.91 Steroid myopathy (Chronic) G72.0, T38.0X5A Insomnia (Chronic) G47.00 Allergic rhinitis (Chronic) J30.9 Pulmonary embolism (Chronic) I26.99 DVT (deep venous thrombosis) (Chronic) I82.409 Acute respiratory failure (Acute) J96.00 Weakness (Acute) R53.1 Coarse tremors (Acute) G25.2 Severe sepsis (Acute) A41.9, R65.20 HCAP (healthcare-associated pneumonia) (Acute) J18.9 Diabetes mellitus (Chronic) E11.9 Hyperlipidemia (Chronic) E78.5 Venous thromboembolism (VTE) (Chronic) I82.90 Obstructive sleep apnea (Chronic) G47.33 History of DVT (deep vein thrombosis) Z86.718 MRSA pneumonia 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 PAPER TAPE [place] azithromycin [From Zithromax] Allergy (Verified 02/12/18 12:35) Rash cefuroxime sodium [From Zinacef] Allergy (Verified 02/12/18 12:35) Rash clindamycin Allergy (Verified 02/12/18 12:35) Hives nitrofurantoin macrocrystalline [From Macrodantin] Allergy (Verified 02/12/18 12:35) Rash Sulfa (Sulfonamide Antibiotics) Allergy (Verified 02/12/18 12:35) Rash atenolol Adverse Reaction (Severe, Verified 02/12/18 12:35) Peripheal edema & cough metoprolol [From Toprol XL] Adverse Reaction (Severe, Verified 02/12/18 12:35) Peripheral edema & cough oxycodone HCl [From Percocet] Adverse Reaction (Verified 02/12/18 12:35) Vomiting STEROID Adverse Reaction (Uncoded 02/14/18 19:16) Other INDUCED MYOPATHY Home Medications: Ambulatory Orders Medication Instructions Recorded Pantoprazole Sodium [Protonix] 40 mg PO DAILY 01/10/17 furosemide 20 mg tablet 40 mg PO DAILY tab 08/19/17 albuterol sulfate HFA 90 2 puff INHALATION Q4H PRN PRN #3 ea 10/05/17 mcg/actuation aerosol inhaler apixaban 5 mg tablet 5 mg PO BID #180 tab 10/05/17 diltiazem CD 180 mg 180 mg PO DAILY #90 cap 10/05/17 capsule,extended release 24 hr flecainide 50 mg tablet 50 mg PO BID #180 tab 10/05/17 montelukast 10 mg tablet 10 mg PO QHS #90 tab 10/05/17 Albuterol Aerosols [Ventolin 2.5 mg INHALATION Q4H PRN 02/15/18 Aerosols] Doxycycline Monohydrate 100 mg PO Q12H 02/15/18 Fluticasone 0.05% [Flonase Nasal 2 spray NASAL DAILY 02/15/18 [place]] Fluticasone/Salmeterol [Advair HFA] 2 puff INHALATION BID 02/15/18 Levothyroxine [Synthroid] 25 mcg PO DAILY@0600 02/15/18 Multivit with Calcium,Iron,Min 1 each PO DAILY 02/15/18 [Multiple Vitamins For Women] Potassium Chloride [K-Dur] 40 meq PO QDAY 02/15/18 Surgical History: Surgical History (Last Reviewed 02/15/18 @ 06:50 by Lul Mazariegos MD) History of cardioversion Onset Date: ~12/2016 Z98.890 @ [place] [facility] 12/2016 H/O section Z98.891 H/O foot surgery Z98.890 H/O hernia repair Z98.890, Z87.19 H/O shoulder surgery Z98.890 right History of left heart catheterization Z98.890 Surgical History: appendectomy, herniorrhaphy, hysterectomy Psychiatric History: No pertinent psych hx [employer] History: No pertinent [employer] history Smoking Status: Former smoker - *Family History Sibling Family History: Family History (Last Reviewed 02/15/18 @ 06:51 by Lul Mazariegos MD) Mother Hypertension Diabetes Heart disease Pulmonary embolism Father Perforated ulcer Respiratory failure Sister Asthma Hypertension History Items: Asthma, Heart Disease, Hypertension Maternal Family History: Family History (Last Reviewed 02/15/18 @ 06:51 by Lul Mazariegos MD) Mother Hypertension Diabetes Heart disease Pulmonary embolism Father Perforated ulcer Respiratory failure Sister Asthma Hypertension History Items: Asthma Paternal Family History: Family History (Last Reviewed 02/15/18 @ 06:51 by Lul Mazariegos MD) Mother Hypertension Diabetes Heart disease Pulmonary embolism Father Perforated ulcer Respiratory failure Sister Asthma Hypertension History Items: No pertinent history Review of Systems Constitutional: Reports: Fever, Malaise, Fatigue HEENT: Denies: Head Aches, Sinus Congestion, Sinus Drainage Cardiovascular: Denies: Chest Pain, Palpitations Respiratory: Reports: Cough, Shortness of Breath, Sputum production Gastrointestinal: Reports: Nausea Genitourinary: Denies: Dysuria Musculoskeletal: Denies: Joint Pain, Joint Tenderness Skin: Denies: Rash, Wounds Neurological: Denies: Numbness, Tingling, Focal weakness Psychiatric: Denies: Anxiety, Depression, Homicidal Ideations, Suicidal Ideations Hematologic/ Lymphatic: Denies: Easy Bruising, Easy Bleeding VTE Information - Inpt Only VTE Present on Admission: No VTE Mechan Device Prophylaxis: None VTE Pharm Prophylaxis ordered?: No Reason prophylaxis not ordered:: Treatment Not Indicated - On Eliquis for A. fib; Eliquis continued. - Physical Exam General: Alert, Oriented x3, Cooperative HEENT: Atraumatic, PERRLA, EOMI, Normocephalic Neck: Supple, No JVD, Negative Carotid Bruits Lungs: Wheezes - Mild Cardiovascular: No murmurs, Tachycardic Abdomen: Bowel Sounds Present, Soft, Non Tender Extremities: No edema, Capillary Refill Less than 3 Seconds Skin: No rashes, No breakdown Musculoskeletal: No Tenderness to Palpation of Joints or Extremities Neurological: Cranial nerves II-XII grossly intact, Neuro grossly intact Psych/Mental Status: Normal Affect, Appropriate Vital Signs Temp Pulse Resp BP Pulse Ox 99.0 F 101 H 18 173/86 H 97 02/14/18 22:00 02/14/18 21:16 02/14/18 22:00 02/14/18 19:07 02/14/18 22:00 Oxygen Delivery Method Room Air Weight: 94.4 kg Body Mass Index (BMI) 38.0 Laboratory Tests Past 24 Hrs 02/14/18 02/14/18 02/14/18 19:55 19:55 19:55 WBC 8.1 RBC 4.23 Hgb 13.0 Hct 40.2 MCV 95.0 MCH 30.7 MCHC 32.3 RDW 12.7 RDW Differential 42.6 Plt Count 378 MPV 10.0 Immature Gran % (Auto) 0.400 Neut % (Auto) 65.2 Lymph % (Auto) 19.0 [place] % (Auto) 11.8 H Eos % (Auto) 3.2 Baso % (Auto) 0.4 Absolute Neuts (auto) 5.3 Absolute Lymphs (auto) 1.55 Total Counted Not Reportable Sodium 142 Potassium 4.2 Chloride 105 Carbon Dioxide 27.0 Anion Gap 10 BUN 24 H Creatinine 1.34 H Estim Creat Clear Calc 33.55 Est GFR (MDRD) Af Amer 51 L Est GFR (MDRD) Non-Af 42 L BUN/Creatinine Ratio 17.9 Glucose 101 Lactic Acid 1.2 Calcium 9.4 Troponin I < 0.015 Urine Color Urine Clarity Urine pH Ur Specific [place] Urine Protein Urine Glucose (UA) Urine Ketones Urine Occult Blood Urine Nitrite Urine Bilirubin Urine Urobilinogen Ur Leukocyte Esterase Urine RBC Urine WBC Ur Squamous Epith Cells Urine Bacteria Urine Mucus 02/14/18 21:13 WBC RBC Hgb Hct MCV MCH MCHC RDW RDW Differential Plt Count MPV Immature Gran % (Auto) Neut % (Auto) Lymph % (Auto) [place] % (Auto) Eos % (Auto) Baso % (Auto) Absolute Neuts (auto) Absolute Lymphs (auto) Total Counted Sodium Potassium Chloride Carbon Dioxide Anion Gap BUN Creatinine Estim Creat Clear Calc Est GFR (MDRD) Af Amer Est GFR (MDRD) Non-Af BUN/Creatinine Ratio Glucose Lactic Acid Calcium Troponin I Urine Color Yellow Urine Clarity Sl. Cloudy Urine pH 6.0 Ur Specific [place] 1.010 Urine Protein Negative Urine Glucose (UA) Normal Urine Ketones Negative Urine Occult Blood Negative Urine Nitrite Negative Urine Bilirubin Negative Urine Urobilinogen Normal Ur Leukocyte Esterase Negative Urine RBC 0 SEEN Urine WBC 0 SEEN Ur Squamous Epith Cells 0-5 SEEN Urine Bacteria 0 SEEN Urine Mucus 0 SEEN Assessment/Plan All Active Problems (Last Reviewed 02/15/18 @ 06:50 by Lul Mazariegos MD) Lung nodule (Acute) Thrush, oral (Acute) Shortness of breath (Acute) Cavitary lesion of lung (Acute) Cellulitis of right lower extremity (Acute) Tachycardia (Acute) ALEXYS (acute kidney injury) (Acute) Pneumonia (Acute) Acute respiratory failure (Acute) Weakness (Acute) Coarse tremors (Acute) Severe sepsis (Acute) HCAP (healthcare-associated pneumonia) (Acute) The patient is a 63 year old F with a significant history of former tobacco abuse; A. fib on Eliquis asthma; questionable COPD ; steroid-induced myopathy; previous history of RSV infection; previous history of MRSA and E. coli in the lungs and with lung nodule who was recently treated for influenza A with Tamiflu and later on was placed on Vibramycin presenting with persistent shortness of breath at rest which increases with exertion. Acute COPD extubation with asthma. Likely post viral bronchitis. However because of a fever and purulent sputum cannot rule out bacterial bronchitis. We will start patient on Levaquin. Of note patient cannot take steroids since she spent about 5-1/2 months at a assisted due to steroid-induced myopathy. Scheduled DuoNeb and as needed albuterol. Strep pneumonia antigen and Legionella antigen ordered but unremarkable. Mycoplasma antibody ordered. Since patient is a known patient of Dr. Bazzi, arch support technician, Dr. Bazzi has been consulted. Comprehensive respiratory pathogen panel ordered by Dr. Bazzi. Singular continued. ALEXYS On admission her creatinine was 1.34. Review of records show that her baseline creatinine is about 1.0 Received IV fluids in the emergency department. Repeated BMP in a.m. showed a creatinine of 1.18. ALEXYS resolved. Paroxysmal A. fib Continue flecainide and apixaban. GERD Protonix continued. DVT prophylaxis: Not indicated indicated patient already on Eliquis. Eliquis continued. Miscellaneous: Patient is on home Lasix and potassium; will continue at this time. Code Visit OBSV E&M: 53271 Initial observation care L3
[2018-02-15] VITALS (7 sets, daily range): BP systolic 133–159; BP diastolic 78–91; PULSE 74–105; RESP 14–18; TEMP 37.3–37.7; O2SAT 96–98; BMI 37.8
[2018-02-15] MEDS: levoFLOXacin IV 750 MG/150 ML BAG 100 MG IV (02:51)
[2018-02-15] MEDS: APIXABAN 5 MG TABLET PO (02:51)
[2018-02-15 05:46] LABS: Absolute Lymphocyte Count 1.71 X10^3/ul (0.83-4.51); Absolute Neutrophil Count 3.4 X10^3/uL (2.0-7.7); Basophil# 0.03 X10^3/uL; Basophil% 0.5 % (0-1); Eosinophil# 0.24 X10^3/uL; Hematocrit 36.6 % (37-47); Hemoglobin 11.8 g/dl (12.0-15.0); Lymphocyte # 1.71 X10^3/ul (4.0); Lymphocyte % 28.6 % (19-41); Mean Corp Hgb Conc 32.2 g/gl (32-36); Mean Corpuscular Hgb 31.1 pg (27.0-32.0); Mean Corpuscular Volume 96.3 fL (81-99); Mean Platelet Vol. 9.9 fl (6.2-12.0); Monocyte# 0.61 X10^3/uL; Monocyte% 10.2 % (0-10); Neutrophil # 3.36 X10^3/uL (2.7-7.7); Neutrophil % 56.4 % (47-70); Platelet Count 326 K/mm3 (150-450); RBC Distribution Width CV 12.8 % (11.6-14.6)
[2018-02-15 05:50] LABS: POSITIVE COUNT NO; POSITIVE DIFFERENTIAL NO; POSITIVE MORPHOLOGY NO
[2018-02-15 05:57] LABS: Anion Gap 10 (5-15); BUN 19 mg/dL (7-18); BUN/Creat Ratio 16.1 RATIO (10-20); Calcium,Total 8.8 mg/dL (8.5-10.1); Chloride 107 mmol/L (98-107); Creatinine, Serum 1.18 mg/dL (0.55-1.02); EST Glomerular Filtration Rate 49 mL/min (>60); Est Glom Filt Rate - Afr Amer 59 mL/min (>60); Estimated Creatinine Clearance 36.35 ml/min; Glucose 134 mg/dL (74-106); Sodium Level 141 mmol/L (136-145)
[2018-02-15] MEDS: Ipratropium/Albuterol Sulfate 3 ML AMPUL.NEB INHALATION ×2 (06:59→11:02)
[2018-02-15] MEDS: Budesonide Respules 0.5 MG/2 ML AMPUL.NEB. INHALATION (06:59)
[2018-02-15] MEDS: Levothyroxine 25 MCG TABLET PO (07:16)
--- NOTE | 2018-02-15 08:09 | PCM.CONS.GEN ---
Reason for Consult Date of Consultation: 02/15/18 Reason for Consultation: Post viral bronchial hyperresponsiveness History of Present Illness: The patient is a 63-year-old female, well-known to me from the pulmonary medicine clinic, who presented to the emergency department on February 14 with complaints of cough and generalized malaise. The patient reports that she was evaluated in the now clinic just prior to Nat[facility] and diagnosed with influenza A. She was subsequently prescribed and completed a treatment course of Tamiflu. However, she continued to feel ill. She did follow-up once again with the now clinic and was then reportedly prescribed doxycycline. The patient does report the presence of wheezing along with a cough, productive of scant sputum. She does report subjective fevers in her home environment. I last saw the patient in the pulmonary medicine clinic on December 15. 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 The patient also has a history of DVT/PE, for which she was previously on anticoagulation therapy. She does have a history of asthma and is currently managed on an outpatient basis with Advair. The patient is also followed longitudinally with chest imaging studies due to the presence of a right upper lobe cavitary lesion and several other pulmonary nodules, which were felt to be the sequelae of her previous pulmonary infection. The patient has previously undergone a CT-guided lung biopsy without any form of malignancy identified. Past Medical History Past Medical History (Chronic Problems): Chronic Problems (Last Reviewed 02/15/18 @ 06:50 by Lul Mazariegos MD) COPD with acute exacerbation (Chronic) Abnormal chest CT (Chronic) Obesity (Chronic) Chronic respiratory failure (Chronic) Asthma (Chronic) Benign essential HTN (Chronic) COLD (chronic obstructive lung disease) (Chronic) Gastroesophageal reflux disease (Chronic) Umbilical hernia (Chronic) Hx pulmonary embolism (Chronic) Morbid obesity (Chronic) Atrial tachycardia (Chronic) PVD (peripheral vascular disease) (Chronic) HTN (hypertension) (Chronic) Atrial fibrillation with rapid ventricular response (Chronic) Steroid myopathy (Chronic) Insomnia (Chronic) Allergic rhinitis (Chronic) Pulmonary embolism (Chronic) DVT (deep venous thrombosis) (Chronic) Diabetes mellitus (Chronic) Hyperlipidemia (Chronic) Venous thromboembolism (VTE) (Chronic) Obstructive sleep apnea (Chronic) Medical History: Medical History (Last Reviewed 02/15/18 @ 06:50 by Lul Mazariegos MD) Aspiration into airway (Suspected) T17.908A Obesity (Chronic) E66.9 Asthma (Chronic) J45.909 Benign essential HTN (Chronic) I10 COLD (chronic obstructive lung disease) (Chronic) J44.9 Gastroesophageal reflux disease (Chronic) K21.9 Umbilical hernia (Chronic) K42.9 Cellulitis of right lower extremity (Acute) L03.115 Hx pulmonary embolism (Chronic) Z86.711 Tachycardia (Acute) R00.0 Acute bronchiolitis (Suspected) J21.9 Morbid obesity (Chronic) E66.01 Atrial tachycardia (Chronic) I47.1 PVD (peripheral vascular disease) (Chronic) I73.9 HTN (hypertension) (Chronic) I10 ALEXYS (acute kidney injury) (Acute) N17.9 Pneumonia (Acute) J18.9 Atrial fibrillation with rapid ventricular response (Chronic) I48.91 Steroid myopathy (Chronic) G72.0, T38.0X5A Insomnia (Chronic) G47.00 Allergic rhinitis (Chronic) J30.9 Pulmonary embolism (Chronic) I26.99 DVT (deep venous thrombosis) (Chronic) I82.409 Acute respiratory failure (Acute) J96.00 Weakness (Acute) R53.1 Coarse tremors (Acute) G25.2 Severe sepsis (Acute) A41.9, R65.20 HCAP (healthcare-associated pneumonia) (Acute) J18.9 Diabetes mellitus (Chronic) E11.9 Hyperlipidemia (Chronic) E78.5 Venous thromboembolism (VTE) (Chronic) I82.90 Obstructive sleep apnea (Chronic) G47.33 History of DVT (deep vein thrombosis) Z86.718 MRSA pneumonia 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 PAPER TAPE [place] azithromycin [From Zithromax] Allergy (Verified 02/12/18 12:35) Rash cefuroxime sodium [From Zinacef] Allergy (Verified 02/12/18 12:35) Rash clindamycin Allergy (Verified 02/12/18 12:35) Hives nitrofurantoin macrocrystalline [From Macrodantin] Allergy (Verified 02/12/18 12:35) Rash Sulfa (Sulfonamide Antibiotics) Allergy (Verified 02/12/18 12:35) Rash atenolol Adverse Reaction (Severe, Verified 02/12/18 12:35) Peripheal edema & cough metoprolol [From Toprol XL] Adverse Reaction (Severe, Verified 02/12/18 12:35) Peripheral edema & cough oxycodone HCl [From Percocet] Adverse Reaction (Verified 02/12/18 12:35) Vomiting STEROID Adverse Reaction (Uncoded 02/14/18 19:16) Other INDUCED MYOPATHY Home Medications: Ambulatory Orders Medication Instructions Recorded Pantoprazole Sodium [Protonix] 40 mg PO DAILY 01/10/17 furosemide 20 mg tablet 40 mg PO DAILY tab 08/19/17 albuterol sulfate HFA 90 2 puff INHALATION Q4H PRN PRN #3 ea 10/05/17 mcg/actuation aerosol inhaler apixaban 5 mg tablet 5 mg PO BID #180 tab 10/05/17 diltiazem CD 180 mg 180 mg PO DAILY #90 cap 10/05/17 capsule,extended release 24 hr flecainide 50 mg tablet 50 mg PO BID #180 tab 10/05/17 montelukast 10 mg tablet 10 mg PO QHS #90 tab 10/05/17 Albuterol Aerosols [Ventolin 2.5 mg INHALATION Q4H PRN 02/15/18 Aerosols] Fluticasone 0.05% [Flonase Nasal 2 spray NASAL DAILY 02/15/18 Herod] Fluticasone/Salmeterol [Advair Hfa 2 puff INHALATION BID 02/15/18 230-21 Mcg Inhaler] Levothyroxine [Synthroid] 25 mcg PO DAILY@0600 02/15/18 Multivit with Calcium,Iron,Min 1 each PO DAILY 02/15/18 [Multiple Vitamins For Women] Potassium Chloride [K-Dur] 40 meq PO QDAY 02/15/18 Surgical History: Surgical History (Last Reviewed 02/15/18 @ 06:50 by Lul Mazariegos MD) History of cardioversion Onset Date: ~12/2016 Z98.890 @ [facility] 12/2016 H/O section Z98.891 H/O foot surgery Z98.890 H/O hernia repair Z98.890, Z87.19 H/O shoulder surgery Z98.890 right History of left heart catheterization Z98.890 Surgical History: appendectomy, herniorrhaphy, hysterectomy Psychiatric History: No pertinent psych hx HOME HOSPICE RN History: No pertinent HOME HOSPICE RN history Smoking Status: Former smoker - *Family History Sibling Family History: Family History (Last Reviewed 02/15/18 @ 06:51 by Lul Mazariegos MD) Mother Hypertension Diabetes Heart disease Pulmonary embolism Father Perforated ulcer Respiratory failure Sister Asthma Hypertension History Items: Asthma, Heart Disease, Hypertension Maternal Family History: Family History (Last Reviewed 02/15/18 @ 06:51 by Lul Mazariegos MD) Mother Hypertension Diabetes Heart disease Pulmonary embolism Father Perforated ulcer Respiratory failure Sister Asthma Hypertension History Items: Asthma Paternal Family History: Family History (Last Reviewed 02/15/18 @ 06:51 by Lul Mazariegos MD) Mother Hypertension Diabetes Heart disease Pulmonary embolism Father Perforated ulcer Respiratory failure Sister Asthma Hypertension History Items: No pertinent history Review of Systems Constitutional: Reports: Fever, Malaise, Fatigue Eyes: Denies: Blurred vision, Double vision HEENT: Denies: Head Aches, Sinus Congestion, Sinus Drainage Cardiovascular: Denies: Chest Pain, Palpitations Respiratory: Reports: Cough, Shortness of Breath, Sputum production, Wheezing Gastrointestinal: Denies: Abdominal Pain, Nausea, Vomiting Genitourinary: Denies: Dysuria Musculoskeletal: Denies: Joint Pain, Joint Tenderness Skin: Denies: Rash, Wounds Neurological: Denies: Numbness, Tingling, Focal weakness Psychiatric: Reports: Anxiety Hematologic/ Lymphatic: Reports: Hx of blood clot Objective: The patient's most recent lab work, culture data and imaging studies have all been personally reviewed. - Physical Exam General: Alert, Cooperative, No apparent distress HEENT: Atraumatic, PERRLA, Normocephalic, - - Vocal hoarseness noted with phonation Oral: No Gingival or Mucosal Lesions/ Ulcerations Neck: Supple, No Nodes, Trachea Midline Lungs: No rhonchi, No rales, Wheezes Cardiovascular: Regular rate, Regular Rhythm, Normal S1, Normal S2, No murmurs Abdomen: Bowel Sounds Present, Soft, Non Tender, Obese Extremities: No clubbing, No cyanosis, No edema Skin: No breakdown Musculoskeletal: No Tenderness to Palpation of Joints or Extremities, No Muscle Wasting Lymphatic: No Cervical, Supraclavicular, or Inguinal Adenopathy Neurological: Cranial nerves II-XII grossly intact, Neuro grossly intact Psych/Mental Status: Alert and oriented to time, place, person, mood and affect Vital Signs Temp Pulse Resp BP Pulse Ox 37.3 C H 74 18 136/91 H 96 02/15/18 01:08 02/15/18 07:00 02/15/18 07:00 02/15/18 01:08 02/15/18 07:00 Oxygen Delivery Method Room Air Weight: 203 lb 5 oz Body Mass Index (BMI) 37.8 Intake and Output for Last 24 Hours 02/13/18 02/14/18 02/15/18 23:59 23:59 23:59 Intake Total 220 / 220 Balance 220 / 220 Microbiology Past 72 Hours 02/14/18 21:13 Streptococcus pneumoniae Antigen (M - Final Urine, Clean Catch 02/14/18 21:13 Legionella Antigen - Final Urine, Clean Catch Laboratory Tests Past 24 Hrs 02/14/18 02/14/18 02/14/18 19:55 19:55 19:55 WBC 8.1 RBC 4.23 Hgb 13.0 Hct 40.2 MCV 95.0 MCH 30.7 MCHC 32.3 RDW 12.7 RDW Differential 42.6 Plt Count 378 MPV 10.0 Immature Gran % (Auto) 0.400 Neut % (Auto) 65.2 Lymph % (Auto) 19.0 Grainger % (Auto) 11.8 H Eos % (Auto) 3.2 Baso % (Auto) 0.4 Absolute Neuts (auto) 5.3 Absolute Lymphs (auto) 1.55 Total Counted Not Reportable Sodium 142 Potassium 4.2 Chloride 105 Carbon Dioxide 27.0 Anion Gap 10 BUN 24 H Creatinine 1.34 H Estim Creat Clear Calc 33.55 Est GFR (MDRD) Af Amer 51 L Est GFR (MDRD) Non-Af 42 L BUN/Creatinine Ratio 17.9 Glucose 101 Lactic Acid 1.2 Calcium 9.4 Troponin I < 0.015 Urine Color Urine Clarity Urine pH Ur Specific [place] Urine Protein Urine Glucose (UA) Urine Ketones Urine Occult Blood Urine Nitrite Urine Bilirubin Urine Urobilinogen Ur Leukocyte Esterase Urine RBC Urine WBC Ur Squamous Epith Cells Urine Bacteria Urine Mucus Mycoplasma pneumon IgG Mycoplasma pneumon IgM 02/14/18 02/15/18 02/15/18 21:13 05:08 05:08 WBC 6.0 RBC 3.80 L Hgb 11.8 L Hct 36.6 L MCV 96.3 MCH 31.1 MCHC 32.2 RDW 12.8 RDW Differential 43.0 Plt Count 326 MPV 9.9 Immature Gran % (Auto) 0.300 Neut % (Auto) 56.4 Lymph % (Auto) 28.6 Grainger % (Auto) 10.2 H Eos % (Auto) 4.0 Baso % (Auto) 0.5 Absolute Neuts (auto) 3.4 Absolute Lymphs (auto) 1.71 Total Counted Not Reportable Sodium Potassium Chloride Carbon Dioxide Anion Gap BUN Creatinine Estim Creat Clear Calc Est GFR (MDRD) Af Amer Est GFR (MDRD) Non-Af BUN/Creatinine Ratio Glucose Lactic Acid Calcium Troponin I Urine Color Yellow Urine Clarity Sl. Cloudy Urine pH 6.0 Ur Specific [place] 1.010 Urine Protein Negative Urine Glucose (UA) Normal Urine Ketones Negative Urine Occult Blood Negative Urine Nitrite Negative Urine Bilirubin Negative Urine Urobilinogen Normal Ur Leukocyte Esterase Negative Urine RBC 0 SEEN Urine WBC 0 SEEN Ur Squamous Epith Cells 0-5 SEEN Urine Bacteria 0 SEEN Urine Mucus 0 SEEN Mycoplasma pneumon IgG Pending Mycoplasma pneumon IgM Pending 02/15/18 05:08 WBC RBC Hgb Hct MCV MCH MCHC RDW RDW Differential Plt Count MPV Immature Gran % (Auto) Neut % (Auto) Lymph % (Auto) Grainger % (Auto) Eos % (Auto) Baso % (Auto) Absolute Neuts (auto) Absolute Lymphs (auto) Total Counted Sodium 141 Potassium 4.0 Chloride 107 Carbon Dioxide 24.0 Anion Gap 10 BUN 19 H Creatinine 1.18 H Estim Creat Clear Calc 36.35 Est GFR (MDRD) Af Amer 59 L Est GFR (MDRD) Non-Af 49 L BUN/Creatinine Ratio 16.1 Glucose 134 H Lactic Acid Calcium 8.8 Troponin I Urine Color Urine Clarity Urine pH Ur Specific [place] Urine Protein Urine Glucose (UA) Urine Ketones Urine Occult Blood Urine Nitrite Urine Bilirubin Urine Urobilinogen Ur Leukocyte Esterase Urine RBC Urine WBC Ur Squamous Epith Cells Urine Bacteria Urine Mucus Mycoplasma pneumon IgG Mycoplasma pneumon IgM Clinical Impression(s) from Imaging Studies Chest X-Ray 02/14/18 19:40 IMPRESSION: Slight decrease in soft tissue density in the lateral right upper lobe when compared to the earlier study. There is no acute cardiopulmonary disease. Electronically Signed: Dave Dietz DO at 21:23 EST Tel [phone], Service support , Assessment/Plan All Active Problems (Last Reviewed 02/15/18 @ 06:50 by Lul Mazariegos MD) Lung nodule (Acute) Thrush, oral (Acute) Shortness of breath (Acute) Cavitary lesion of lung (Acute) Cellulitis of right lower extremity (Acute) Tachycardia (Acute) ALEXYS (acute kidney injury) (Acute) Pneumonia (Acute) Acute respiratory failure (Acute) Weakness (Acute) Coarse tremors (Acute) Severe sepsis (Acute) HCAP (healthcare-associated pneumonia) (Acute) RECOMMENDATIONS: 1. Continue scheduled bronchodilators and inhaled corticosteroid. 2. Await results of respiratory viral panel. 3. Low clinical index of suspicion for underlying bacterial infection. Therefore, antibiotics have been discontinued. 4. Encourage incentive spirometer use and mobilize patient as tolerated. 5. If the patient remains clinically stable, she can be discharged home from my perspective with outpatient pulmonary follow-up next week. IMPRESSIONS: 1. Baseline asthma with recent influenza A infection/post viral bronchial hyperresponsiveness The patient was evaluated in the now clinic on February 05 and subsequently found to have influenza A. She completed a treatment course of Tamiflu but continued to have a cough and generalized malaise. She has been afebrile without evidence of a leukocytosis throughout her hospitalization. Repeat chest imaging revealed no acute cardiopulmonary process. I strongly suspect that the patient's symptoms are likely the sequelae of her initial viral infection. The post viral bronchial hyperresponsiveness and cough may last for 4-6 weeks. Unfortunately, the patient has a history of steroid-induced myopathy and is therefore not a candidate for treatment with prednisone. 2. Personal history of steroid-induced myopathy Continue scheduled bronchodilators and inhaled corticosteroids as ordered. Avoid systemic corticosteroids. 3. Abnormal chest CT This issue is followed longitudinally in the pulmonary medicine clinic. There is no indication for any additional workup as an inpatient. 4. Obesity/GERD/paroxysmal atrial fibrillation/chronic anticoagulation Complicates care, management, recovery and prognosis. Okay to continue home medications as indicated. This note was generated with [employer] software. It may contain incorrect words, spelling, and punctuation that were not noted in checking the note before signing. Code Visit Inpatient E&M: 22153 Init Hosp L2
[2018-02-15] MEDS: Fluticasone 0.05% 1 SPRAY NASAL.SRY 2 SPRAY NASAL (09:47)
[2018-02-15] MEDS: guaiFENesin 1,200 MG Tablet 1200 MG PO (09:48)
[2018-02-15] MEDS: Flecainide 100 MG Tablet 50 MG PO (09:48)
[2018-02-15] MEDS: Pantoprazole Sodium 40 MG Tablet PO (09:48)
[2018-02-15] MEDS: Furosemide 40 MG Tablet PO (09:49)
[2018-02-15] MEDS: Multivitamins,Ther W-Minerals Tablet 1 TABLET PO (09:49)
[2018-02-15] MEDS: dilTIAZem CD 180 MG Capsule PO (09:49)
--- NOTE | 2018-02-15 10:35 | CASEMGMT ---
MARIO HURST ASSESSMENT To room to meet with patient for initial transition planning/care coordination assessment. MARIO HURST introduced self and role at [facility]. Pt voices understanding and consents to assessment at this time. Pt sitting up at edge of bed in no distress at this time. Pt is A/O at this time and answers all questions appropriately. Care providers, pharmacy, and demographics verified/updated at this time. PCP: [facility] Specialists: Jluis Muhammad Pharmacy: [facility] Insurance: [facility] M[facility] 2018[facility] Does not have new insurance card yet but will bring in to [facility] once she receives it. Prescription Benefit: Yes Living Will/HPOA: Has both LW and HCPOA, but wants to change HCPOA and would like to talk to . [facility]. Pt also given [employer] card and made aware she can come in as an out-pt to complete paperwork if it is not completed prior to discharge. Living Arrangements: Currently lives with and has daughter that lives with them who is handicapped. Pt states she is currently in the process of a divorce, so her living arrangements will be changing soon. States is independent and requires no assistance. Transportation: Pt states drives self and states no transportation concerns at this time. DME: States has the following DME available from prior illness, but does not currently use. Shower chair, BSC, grab bars, hand held shower, walker, and rollator. Also has nebulizer. Pt states no need for DME at this time. HHC/SNF: Has been to [facility] and has used [facility]HC in the past. Denies needs on discharge. States currently goes to [facility]. Pt wishes to return home and states has no concerns with going home at time of discharge. CM to follow for any further discharge planning/needs. Pt voices no further concerns/needs at this time. Advised pt to ask for CM if any further questions/concerns/needs arise. Voices understanding. Plan: Home Tc [facility] RN, CM
--- NOTE | 2018-02-15 14:42 | PCM.DC ---
- Discharge Diagnoses Current Active Problems: Current Active and Chronic Problems (Last Reviewed 02/15/18 @ 06:50 by Lul Mazariegos MD) COPD with acute exacerbation (Chronic) You will use the following diet at home:: Cardiac Your food should be the consistency of: Regular Your liquids should be the consistency of: Regular/Thin Discharge Activity: Return to Normal Activity Call your doctor if you observe: Fever of 101 or Higher, Shortness of breath, Increased palpitations (irregular heartbeat) Allergies/Adverse Reactions: Allergies adhesive Allergy (Verified 02/12/18 12:35) Other SKIN TEARS. PAPER TAPE OK azithromycin [From Zithromax] Allergy (Verified 02/12/18 12:35) Rash cefuroxime sodium [From Zinacef] Allergy (Verified 02/12/18 12:35) Rash clindamycin Allergy (Verified 02/12/18 12:35) Hives nitrofurantoin macrocrystalline [From Macrodantin] Allergy (Verified 02/12/18 12:35) Rash Sulfa (Sulfonamide Antibiotics) Allergy (Verified 02/12/18 12:35) Rash atenolol Adverse Reaction (Severe, Verified 02/12/18 12:35) Peripheal edema & cough metoprolol [From Toprol XL] Adverse Reaction (Severe, Verified 02/12/18 12:35) Peripheral edema & cough oxycodone HCl [From Percocet] Adverse Reaction (Verified 02/12/18 12:35) Vomiting STEROID Adverse Reaction (Uncoded 02/14/18 19:16) Other INDUCED MYOPATHY Medications to take at Discharge Pantoprazole Sodium [Protonix] 40 mg PO DAILY 01/10/17 furosemide 20 mg tablet 40 mg PO DAILY tab 08/19/17 albuterol sulfate HFA 90 mcg/actuation aerosol inhaler 2 puff INHALATION Q4H PRN PRN #3 ea 10/05/17 apixaban 5 mg tablet 5 mg PO BID #180 tab 10/05/17 diltiazem CD 180 mg capsule,extended release 24 hr 180 mg PO DAILY #90 cap 10/05/17 flecainide 50 mg tablet 50 mg PO BID #180 tab 10/05/17 montelukast 10 mg tablet 10 mg PO QHS #90 tab 10/05/17 Albuterol Aerosols [Ventolin Aerosols] 2.5 mg INHALATION Q4H PRN 02/15/18 Fluticasone 0.05% [Flonase Nasal [place]] 2 spray NASAL DAILY 02/15/18 Fluticasone/Salmeterol [Advair Hfa 230-21 Mcg Inhaler] 2 puff INHALATION BID 02/15/18 Levothyroxine [Synthroid] 25 mcg PO DAILY@0600 02/15/18 Multivit with Calcium,Iron,Min [Multiple Vitamins For Women] 1 each PO DAILY 02/15/18 Potassium Chloride [K-Dur] 40 meq PO QDAY 02/15/18 Primary Care Physician: Ervin Donnelly MD [Primary Care Provider] - Please follow up with your Primary Care Physician in: one week Test Results: Test results from this visit will be discussed in further detail at your follow-up appointment, if applicable. Proposed Discharge Date: 02/15/18
--- NOTE | 2018-02-15 14:48 | DS.PCM_ITS ---
Discharge Date and Diagnosis Date of Admission: 02/14/18 Date of Discharge: 02/15/18 - Secondary Discharge Diagnosis Chronic Problems (Last Reviewed 02/15/18 @ 06:50 by Lul Mazariegos MD) COPD with acute exacerbation (Chronic) Abnormal chest CT (Chronic) Obesity (Chronic) Chronic respiratory failure (Chronic) Asthma (Chronic) Benign essential HTN (Chronic) COLD (chronic obstructive lung disease) (Chronic) Gastroesophageal reflux disease (Chronic) Umbilical hernia (Chronic) Hx pulmonary embolism (Chronic) Morbid obesity (Chronic) Atrial tachycardia (Chronic) PVD (peripheral vascular disease) (Chronic) HTN (hypertension) (Chronic) Atrial fibrillation with rapid ventricular response (Chronic) Steroid myopathy (Chronic) Insomnia (Chronic) Allergic rhinitis (Chronic) Pulmonary embolism (Chronic) DVT (deep venous thrombosis) (Chronic) Diabetes mellitus (Chronic) Hyperlipidemia (Chronic) Venous thromboembolism (VTE) (Chronic) Obstructive sleep apnea (Chronic) Hospital Course and Treatment pulmonology- Dr Bazzi Operations: None, - Procedures: None Summary of Care Provided: Patient is a 63-year-old female with a history of A. fib, asthma and COPD, steroid-induced myopathy and nicotine abuse. She was admitted with a complaint of shortness of breath which started around February 03, 2018 and was diagnosed with flu at a now clinic. She was treated with Tamiflu is completed the course. However she states her symptoms persisted and she continued having a subjective fever with a cough productive of yellow sputum. She was also treated with p.o. doxycycline 100 mg twice daily but his symptoms still persisted. She therefore came in and was admitted for possible COPD exacerbation. Chest x-ray showed no clear infiltrate. Respiratory panel was checked and was negative. Patient symptoms resolved while in the hospital. Pulmonology was consulted and was told that patient likely had a post viral bronchial hyperresponsiveness. She was counseled that cough may last for about 4-6 weeks and she can IV be given steroids on account of her history of steroid-induced myopathy. Patient remained stable and was agreeable to discharge on 02/15/2018 she is to follow-up with her primary care doctor and transaction coordinator. Of note, patient has had a prolonged pulmonary medical history including admission and 2017 for respiratory failure and steroid myopathy was also found to have a right upper lobe cavitary lesion and several other pulmonary nodules which was thought to be due to her previous pulmonary infections. She had undergone lung biopsy without any malignancy been diagnosed. Patient seen and examined prior to discharge. She had no complaints and said her cough had improved slightly. She denied any fever or chills, any chest pain, and palpitations. Shortness of breath had also resolved. She denied any abdominal pain, diarrhea vomiting. Review of signs otherwise negative. Labs and vitals reviewed. Home medications reviewed on consult. o/e: Vital Signs Height 5 ft 1.5 in Weight: 203 lb 4.965 oz Weight in Pounds 203.3 lbs Pulse Ox 98 Temperature 99.6 F Pulse Rate 80 Respiratory Rate 16 Blood Pressure 133/84 Blood Pressure Position Sitting General: Alert, Cooperative, No apparent distress HEENT: Atraumatic, PERRLA, Normocephalic, some vocal hoarseness with speech Neck: Supple, No Nodes, Trachea Midline Lungs: No rhonchi, No rales, Wheezes Cardiovascular: Regular rate, Regular Rhythm, Normal S1, Normal S2, No murmurs Abdomen: Bowel Sounds Present, Soft, Non Tender, Obese Extremities: No clubbing, No cyanosis, No edema Skin: No breakdown Musculoskeletal: No Tenderness to Palpation of Joints or Extremities, No Muscle Wasting Lymphatic: No Cervical, Supraclavicular, or Inguinal Adenopathy Neurological: Cranial nerves II-XII grossly intact, Neuro grossly intact Psych/Mental Status: Alert and oriented to time, place, person, mood and affect Plan as stated above - Physical Exam Vital Signs Temp Pulse Resp BP Pulse Ox 99.6 F H 80 16 133/84 H 98 02/15/18 07:30 02/15/18 11:03 02/15/18 11:03 02/15/18 07:30 02/15/18 07:30 Oxygen Delivery Method Room Air Weight: 203 lb 4.965 oz Body Mass Index (BMI) 37.8 Intake and Output for Last 24 Hours 02/13/18 02/14/18 02/15/18 23:59 23:59 23:59 Intake Total 220 / 220 Balance 220 / 220 Microbiology Past 72 Hours 02/15/18 06:57 Respiratory Panel (PCR) - Final Mucosa - Nose 02/14/18 21:13 Streptococcus pneumoniae Antigen (M - Final Urine, Clean Catch 02/14/18 21:13 Legionella Antigen - Final Urine, Clean Catch Laboratory Tests Past 24 Hrs 01/01/19 01/01/19 01/01/19 19:55 19:55 19:55 WBC 8.1 RBC 4.23 Hgb 13.0 Hct 40.2 MCV 95.0 MCH 30.7 MCHC 32.3 RDW 12.7 RDW Differential 42.6 Plt Count 378 MPV 10.0 Immature Gran % (Auto) 0.400 Neut % (Auto) 65.2 Lymph % (Auto) 19.0 Kay % (Auto) 11.8 H Eos % (Auto) 3.2 Baso % (Auto) 0.4 Absolute Neuts (auto) 5.3 Absolute Lymphs (auto) 1.55 Total Counted Not Reportable Sodium 142 Potassium 4.2 Chloride 105 Carbon Dioxide 27.0 Anion Gap 10 BUN 24 H Creatinine 1.34 H Estim Creat Clear Calc 33.55 Est GFR (MDRD) Af Amer 51 L Est GFR (MDRD) Non-Af 42 L BUN/Creatinine Ratio 17.9 Glucose 101 Lactic Acid 1.2 Calcium 9.4 Troponin I < 0.015 Urine Color Urine Clarity Urine pH Ur Specific [place] Urine Protein Urine Glucose (UA) Urine Ketones Urine Occult Blood Urine Nitrite Urine Bilirubin Urine Urobilinogen Ur Leukocyte Esterase Urine RBC Urine WBC Ur Squamous Epith Cells Urine Bacteria Urine Mucus Mycoplasma pneumon IgG Mycoplasma pneumon IgM 02/14/18 02/15/18 02/15/18 21:13 05:08 05:08 WBC 6.0 RBC 3.80 L Hgb 11.8 L Hct 36.6 L MCV 96.3 MCH 31.1 MCHC 32.2 RDW 12.8 RDW Differential 43.0 Plt Count 326 MPV 9.9 Immature Gran % (Auto) 0.300 Neut % (Auto) 56.4 Lymph % (Auto) 28.6 Kay % (Auto) 10.2 H Eos % (Auto) 4.0 Baso % (Auto) 0.5 Absolute Neuts (auto) 3.4 Absolute Lymphs (auto) 1.71 Total Counted Not Reportable Sodium Potassium Chloride Carbon Dioxide Anion Gap BUN Creatinine Estim Creat Clear Calc Est GFR (MDRD) Af Amer Est GFR (MDRD) Non-Af BUN/Creatinine Ratio Glucose Lactic Acid Calcium Troponin I Urine Color Yellow Urine Clarity Sl. Cloudy Urine pH 6.0 Ur Specific [place] 1.010 Urine Protein Negative Urine Glucose (UA) Normal Urine Ketones Negative Urine Occult Blood Negative Urine Nitrite Negative Urine Bilirubin Negative Urine Urobilinogen Normal Ur Leukocyte Esterase Negative Urine RBC 0 SEEN Urine WBC 0 SEEN Ur Squamous Epith Cells 0-5 SEEN Urine Bacteria 0 SEEN Urine Mucus 0 SEEN Mycoplasma pneumon IgG Pending Mycoplasma pneumon IgM Pending 02/15/18 05:08 WBC RBC Hgb Hct MCV MCH MCHC RDW RDW Differential Plt Count MPV Immature Gran % (Auto) Neut % (Auto) Lymph % (Auto) Kay % (Auto) Eos % (Auto) Baso % (Auto) Absolute Neuts (auto) Absolute Lymphs (auto) Total Counted Sodium 141 Potassium 4.0 Chloride 107 Carbon Dioxide 24.0 Anion Gap 10 BUN 19 H Creatinine 1.18 H Estim Creat Clear Calc 36.35 Est GFR (MDRD) Af Amer 59 L Est GFR (MDRD) Non-Af 49 L BUN/Creatinine Ratio 16.1 Glucose 134 H Lactic Acid Calcium 8.8 Troponin I Urine Color Urine Clarity Urine pH Ur Specific [place] Urine Protein Urine Glucose (UA) Urine Ketones Urine Occult Blood Urine Nitrite Urine Bilirubin Urine Urobilinogen Ur Leukocyte Esterase Urine RBC Urine WBC Ur Squamous Epith Cells Urine Bacteria Urine Mucus Mycoplasma pneumon IgG Mycoplasma pneumon IgM Diagnostic Data Chest X-Ray 02/14/18 19:40 IMPRESSION: Slight decrease in soft tissue density in the lateral right upper lobe when compared to the earlier study. There is no acute cardiopulmonary disease. Electronically Signed: Dave Dietz DO at 21:23 EST Tel [phone], Service support , Discharge Diet: Low fat/ Low Cholesterol Discharge Activity: Return to Normal Activity Call your doctor if you observe: Fever of 101 or Higher, Shortness of breath, Increased palpitations (irregular heartbeat) Home Medications: Medications to take at Discharge Pantoprazole Sodium [Protonix] 40 mg PO DAILY 01/10/17 furosemide 20 mg tablet 40 mg PO DAILY tab 08/19/17 albuterol sulfate HFA 90 mcg/actuation aerosol inhaler 2 puff INHALATION Q4H PRN PRN #3 ea 10/05/17 apixaban 5 mg tablet 5 mg PO BID #180 tab 10/05/17 diltiazem CD 180 mg capsule,extended release 24 hr 180 mg PO DAILY #90 cap 10/05/17 flecainide 50 mg tablet 50 mg PO BID #180 tab 10/05/17 montelukast 10 mg tablet 10 mg PO QHS #90 tab 10/05/17 Albuterol Aerosols [Ventolin Aerosols] 2.5 mg INHALATION Q4H PRN 02/15/18 Fluticasone 0.05% [Flonase Nasal [place]] 2 spray NASAL DAILY 02/15/18 Fluticasone/Salmeterol [Advair Hfa 230-21 Mcg Inhaler] 2 puff INHALATION BID 02/15/18 Levothyroxine [Synthroid] 25 mcg PO DAILY@0600 02/15/18 Multivit with Calcium,Iron,Min [Multiple Vitamins For Women] 1 each PO DAILY 02/15/18 Potassium Chloride [K-Dur] 40 meq PO QDAY 02/15/18 Primary Care Physician: Ervin Donnelly MD [Primary Care Provider] - Please follow up with your Primary Care Physician in: one week Disposition: Home Minutes spent on discharge:: 37 Patient Condition:: Stable Medical Necessity - Tobacco Use Smoking Status: Former smoker Meaningful Use Info Meaningful Use Diagnoses (Choose all that apply): None applicable Code Visit Inpatient E&M: 02479 Disch Hosp
[2018-02-16 15:05] LABS: Mycoplasma Pneum AB IgG < 100 U/mL (0-99); Mycoplasma pneum. AB IgM < 770 U/mL (0-769)
== END 2018-02-15 15:25 | disposition home or self-care (01) ==
LOC: ED 23:37 → MS3 23:38
PROVIDERS: Admitting Provider Hospitalist; Emergency Provider Emergency Medicine; Family Provider Family Medicine; PCP Family Medicine; Visit Provider Student in an Organized Health Care Education/Training Program
DX: J44.9 Chronic obstructive pulmonary disease, unspecified (principal); I48.0 Paroxysmal atrial fibrillation; K21.9 Gastro-esophageal reflux disease without esophagitis; E66.01 Morbid (severe) obesity due to excess calories; J96.10 Chronic respiratory failure, unspecified whether with hypoxia or hypercapnia; Z68.37 Body mass index [BMI] 37.0-37.9, adult; Z71.3 Dietary counseling and surveillance; Z79.899 Other long term (current) drug therapy; Z79.51 Long term (current) use of inhaled steroids; Z86.14 Personal history of Methicillin resistant Staphylococcus aureus infection; Z86.19 Personal history of other infectious and parasitic diseases; Z87.09 Personal history of other diseases of the respiratory system; E11.51 Type 2 diabetes mellitus with diabetic peripheral angiopathy without gangrene; Z86.711 Personal history of pulmonary embolism; I48.2 Chronic atrial fibrillation; Z86.718 Personal history of other venous thrombosis and embolism; E78.5 Hyperlipidemia, unspecified; G47.33 Obstructive sleep apnea (adult) (pediatric); Z87.891 Personal history of nicotine dependence; N17.9 Acute kidney failure, unspecified
CPT/HCPCS: 36415; 71045; 80048; 81001; 83605; 84484; 85025; 86738; 87449; 87633; 93005; 94640; 94667; 96361; 96365; 96366; 97802; 99218; 99283; J7030; J7040; G0378

== ENCOUNTER → 2018-04-13 10:36 | Outpatient (CLI) | payer OTHER, SELFPAY ==
[2018-03-20 13:06] VITALS: BMI 37.8
[2018-04-13 12:56] LABS: Hematocrit 40.4 % (37-47); Hemoglobin 12.5 g/dl (12.0-15.0); Mean Corp Hgb Conc 30.9 g/gl (32-36); Mean Corpuscular Hgb 29.8 pg (27.0-32.0); Mean Corpuscular Volume 96.4 fL (81-99); Mean Platelet Vol. 10.4 fl (6.2-12.0); Platelet Count 344 K/mm3 (150-450); RBC Distribution Width CV 13.5 % (11.6-14.6); RBC Distribution Width SD 47.3 fl (35.1-43.9); Red Blood Count 4.19 M/mm3 (4.2-5.4); White Blood Count 7.4 K/mm3 (4.4-11.0)
[2018-04-13 12:58] LABS: Scan Indicated on CBC? Y/N NO
[2018-04-13 13:10] LABS: AST(SGOT) 20 U/L (15-37); Alanine Aminotransfer ALT/SGPT 31 U/L (13-56); Albumin, Serum 3.6 g/dL (3.2-5.0); Alkaline Phosphatase 140 U/L (45-117); Anion Gap 6 (5-15); BUN 18 mg/dL (7-18); BUN/Creat Ratio 15.7 RATIO (10-20); Bilirubin, Direct 0.09 mg/dL (0.00-0.30); Calcium,Total 9.2 mg/dL (8.5-10.1); Chloride 106 mmol/L (98-107); Creatinine, Serum 1.15 mg/dL (0.55-1.02); EST Glomerular Filtration Rate 51 mL/min (>60); Est Glom Filt Rate - Afr Amer 61 mL/min (>60); Ferritin 46 ng/mL (8-252); Globulin 4.5 g/dL (2.2-4.2); Glucose 99 mg/dL (74-106); Iron 69 ug/dL (50-170); Protein, Total 8.1 g/dL (6.4-8.2); Sodium Level 136 mmol/L (136-145); T4 Free Direct 1.16 ng/dL (0.76-1.46); Thyroid Stim Hormone (TSH) 1.23 uIU/mL (0.358-3.74)
== END ==
PROVIDERS: Family Provider Family Medicine; PCP Family Medicine; Referring Provider Family Medicine; Visit Provider Family Medicine
DX: E03.9 Hypothyroidism, unspecified (principal); N28.9 Disorder of kidney and ureter, unspecified; D64.9 Anemia, unspecified
CPT/HCPCS: 36415; 80048; 80076; 82728; 83540; 84439; 84443; 85027

== ENCOUNTER → 2018-05-30 14:06 | Outpatient (CLI) | payer OTHER, SELFPAY ==
[2018-03-20 13:06] VITALS: BMI 37.8
--- NOTE | 2018-05-30 14:10 | RAD_ITS ---
STUDY: X-RAY - LUMBAR SPINE REASON FOR EXAM: Female, 63 years old. Pain TECHNIQUE: 5 view(s) of the lumbar spine were obtained. COMPARISON: None FINDINGS: Normal lumbar lordosis. There is a levoscoliosis. There is a normal alignment of the vertebrae. Degenerative changes of the vertebral bodies with spurring at the endplates. Narrowed disc space heights. Grade 1 spondylolisthesis at L5-S1. The soft tissue structures are unremarkable. Calcified aorta. RAD/L/S Spine Min 4 Views IMPRESSION: Moderate degenerative changes and scoliosis of the lumbar spine. Grade 1 spondylolisthesis at L5-S1. Electronically Signed: Clive Muñoz DO at 0:00 EDT Tel [phone], Service support ,
== END ==
PROVIDERS: Family Provider Family Medicine; PCP Family Medicine; Referring Provider Family Medicine; Visit Provider Family Medicine
DX: M54.5 Low back pain (principal)
CPT/HCPCS: 72110

== ENCOUNTER → 2018-06-05 15:00 | Outpatient (CLI) | payer OTHER, SELFPAY ==
[2018-03-20 13:06] VITALS: BMI 37.8
[2018-06-05 17:54] LABS: Vitamin B12 481 pg/mL (211-911)
[2018-06-05 18:01] LABS: Hematocrit 36.9 % (37-47); Hemoglobin 11.6 g/dl (12.0-15.0); Mean Corp Hgb Conc 31.4 g/gl (32-36); Mean Corpuscular Hgb 30.1 pg (27.0-32.0); Mean Corpuscular Volume 95.8 fL (81-99); Platelet Count 311 K/mm3 (150-450); RBC Distribution Width CV 14.1 % (11.6-14.6); RBC Distribution Width SD 49.2 fl (35.1-43.9); Red Blood Count 3.85 M/mm3 (4.2-5.4); White Blood Count 5.4 K/mm3 (4.4-11.0)
[2018-06-05 18:02] LABS: ALB/GLOB Ratio 0.8 RATIO (0.9-2.4); AST(SGOT) 17 U/L (15-37); Alanine Aminotransfer ALT/SGPT 29 U/L (13-56); Albumin, Serum 3.6 g/dL (3.2-5.0); Alkaline Phosphatase 132 U/L (45-117); Anion Gap 8 (5-15); BUN 42 mg/dL (7-18); BUN/Creat Ratio 24.7 RATIO (10-20); Calcium,Total 9.1 mg/dL (8.5-10.1); Chloride 109 mmol/L (98-107); EST Glomerular Filtration Rate 32 mL/min (>60); Est Glom Filt Rate - Afr Amer 39 mL/min (>60); Globulin 4.3 g/dL (2.2-4.2); Glucose 91 mg/dL (74-106); LDH 272 U/L (84-246); Potassium 4.6 mmol/L (3.5-5.1); Protein, Total 7.9 g/dL (6.4-8.2); Scan Indicated on CBC? Y/N NO; Sodium Level 140 mmol/L (136-145)
[2018-06-05 18:24] LABS: Erythrocyte Sedimentation Rate 53 mm/hr (0-30)
[2018-06-08 14:07] LABS: Aldolase 3.9 U/L (3.3-10.3)
[2018-06-09 13:20] LABS: Vitamin D 1,25-Dihydroxy 46.6 pg/mL (19.9-79.3)
== END ==
PROVIDERS: Family Provider Family Medicine; PCP Family Medicine; Visit Provider Family Medicine
DX: M62.81 Muscle weakness (generalized) (principal)
CPT/HCPCS: 36415; 80053; 82085; 82533; 82607; 82652; 83615; 85027; 85652

== ENCOUNTER → 2018-06-23 11:05 | Outpatient (CLI) | payer OTHER, SELFPAY ==
[2018-03-20 13:06] VITALS: BMI 37.8
[2018-06-23 13:13] LABS: Anion Gap 9 (5-15); BUN 35 mg/dL (7-18); Calcium,Total 9.3 mg/dL (8.5-10.1); Chloride 108 mmol/L (98-107); EST Glomerular Filtration Rate 40 mL/min (>60); Est Glom Filt Rate - Afr Amer 49 mL/min (>60); Glucose 107 mg/dL (74-106); Potassium 5.1 mmol/L (3.5-5.1); Sodium Level 139 mmol/L (136-145)
== END ==
PROVIDERS: Family Provider Family Medicine; PCP Family Medicine; Referring Provider Family Medicine; Visit Provider Family Medicine
DX: N28.9 Disorder of kidney and ureter, unspecified (principal)
CPT/HCPCS: 36415; 80048

== ENCOUNTER → 2018-07-06 13:21 | Outpatient (CLI) | payer OTHER, SELFPAY ==
[2018-03-20 13:06] VITALS: BMI 37.8
[2018-07-06 14:36] LABS: Anion Gap 6 (5-15); BUN 39 mg/dL (7-18); BUN/Creat Ratio 27.1 RATIO (10-20); Calcium,Total 9.3 mg/dL (8.5-10.1); Chloride 107 mmol/L (98-107); Creatinine, Serum 1.44 mg/dL (0.55-1.02); EST Glomerular Filtration Rate 39 mL/min (>60); Est Glom Filt Rate - Afr Amer 47 mL/min (>60); Glucose 92 mg/dL (74-106); Potassium 4.9 mmol/L (3.5-5.1); Sodium Level 139 mmol/L (136-145)
== END ==
PROVIDERS: Family Provider Family Medicine; PCP Family Medicine; Referring Provider Family Medicine; Visit Provider Family Medicine
DX: I10 Essential (primary) hypertension (principal)
CPT/HCPCS: 36415; 80048

== ENCOUNTER → 2018-07-20 | Outpatient (CLI) | payer OTHER, SELFPAY ==
[2018-07-13 11:24] VITALS: BMI 41.5
--- NOTE | 2018-07-20 12:46 | STEWCON_ITS ---
Reason For Study: PT ON FLECAINIDE, SOB, AFIB Stress Results Protocol: Dobutatmine Stress Echo Maximum Predicted HR: 156 bpm Target HR: 133 bpm % Maximum Predicted HR: 88 % DurationHeart Rate Stage (mm:ss) (bpm) BP Dose Comment BASELINE 86 122/78 DILUTED DEFINITY 6 CC USED DSE- 10 MCG 3:22 87 123/7010.00 DSE- 20 MCG 3:03 110 144/7720.00 DSE- 30 MCG 3:20 124 140/7030.00 DSE- 40 MCG 2:21 137 142/7840.00SLIGHT SOB, NO CP RECOVERY 97 125/68 Stress Duration: 12:06 mm:ss Maximum Stress HR: 137 bpm Baseline Echocardiogram Findings The estimated ejection fraction is 65 %. Stress Echo Wall motion Data Resting WM Intermediate WM Stress WM Resting Wall Motion Wall Motion Stress No regional wall motion No regional wall motion abnormalities noted. abnormalities noted. EKG Data Normal intervals are noted. The patient was titrated from 10 mcg to a maximum of 40 mcg of dobutamine during the stress. The maximum heart rate attained was 137 beats per minute. This was 87% of maximum predicted heart rate. During dobutamine infusion, there were no ST or T wave changes noted to suggest ischemia. No clinical angina was noted. Doppler Measurements & Calculations TR max mary kate: 286.6 cm/sec TR max P.8 mmHg Interpretation Summary The estimated ejection fraction is 65 %. Normal, adequate, dobutamine echocardiogram. Negative for ischemia by EKG and echocardiographic criteria. No anginal symptoms noted. Rare PVCs noted. Appropriate blood pressure response to dobutamine. Final LVEF is 75%. Test terminated due to the attainment target heart rate and slight dyspnea. Decreased sensitivity due to poor echo windows requiring Definity agent. No complications. The study was technically difficult. Contrast injection was performed. Ordering Physician: Chuck^Darrian^^^ Referring Physician: Darrian Woods Performed By: Sandy Hansen, RAGHAVENDRA, RVT
== END | disposition home or self-care (01) ==
LOC: CVS 12:44
PROVIDERS: Family Provider Family Medicine; PCP Family Medicine; Referring Provider Internal Medicine Cardiovascular Disease; Visit Provider Internal Medicine Cardiovascular Disease
DX: I48.91 Unspecified atrial fibrillation (principal); R06.02 Shortness of breath; Z51.81 Encounter for therapeutic drug level monitoring; Z79.899 Other long term (current) drug therapy
CPT/HCPCS: 93017; 93350; J7040; Q9957; A4216; C8928

== ENCOUNTER 2018-09-11 11:00 | Outpatient (RCR) | payer OTHER, SELFPAY ==
[2018-07-13 11:24] VITALS: BMI 41.5
--- NOTE | 2018-07-26 14:08 | HP.PTEVAL ---
Patient's Visit Information LAURA SERRANO is a 63 year old F referred to Physical Therapy by Ervin Sharma MD with a diagnosis of LUMBAR DDD. Date of Evaluation: 07/26/18 Physical Therapist: Alexandra Boswell PT, Cert MDT - Visit Plan Frequency: 2-3x /Week Duration: 3 Months Plan: AQUATIC THERAPY FOR PAIN RELEIF, POSTURE CORRECTION/STRENGTHENING, INSTRUCTION IN APPROPRIATE BODY MECHANICS AND ACTIVITY MODIFICATIONS. DLS WITH A NEUTRAL SPINE TOLERATED. SERGIO LE ROM, STRETCHING AND STRENGTHENING. HEP INSTRUCTION. - Subjective Findings: Work/Leisure: RETIRED. Disability: YES - WENT ON DISABILITY ABOUT 8 YEARS AGO. FELL AT HOSPITAL AND FX'D RIGHT SHOULDER - DID NOT HEAL WELL. Present symptoms: SERGIO LOW BACK PAIN AND SERGIO HIP PAIN. INTERMITTENT SERGIO LE EXTREME WEAKNES, NUMBNESS AND TINGLING. LBP HAS BECOME MORE SEVERE PATIENT REPORTS SHE HAS HAD SOME FECAL INCONTINENCE AND DR. SHARMA IS AWARE. PATIENT REPORTS SERGIO LEG AND FOOT NUMBNESS STATING IT FEELS WIERD LIKE SHE HAS SOCKS ON. Present since: CHRONIC LBP BUT OVER THE LAST FEW MONTHS PAIN HAS BECOME MORE SEVERE. Pain Scale: WORST 8/10, LEAST 0/10. Currently: 0/10. 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 Symptoms at onset: LOW BACK. Worse: WALKING, STANDING. Better: SITTING. Disturbed sleep: YES. Previous history/Previous treatment: RADHA'S A LONG TIME AGO. MEDICATION. PHYSICAL THERAPY. MAINLY SELF MANAGED FOR THE LAST 10 YEARS. NO CHIROPRACTOR. Coughing/sneezing/straining: NEGATIVE. Gait: DISTANCE LIMITED. WOBBLING TYPE GAIT MAINLY DUE TO MY FEET. PATIENT REPORTS SHE HAS BAD FEET AND HAS ORTHOTICS. AT TIMES SHE GOES NUMB FROM THE WAIST DOWN. HAS TO USE WALKER SOMETIMES ( RECENT LAST WEEK). HARD TO GROCERY SHOP. Difficulty initiating urinatin: NO. Accidents: FALL 8 YEARS AGO - FX RIGHT ARM. Unexplained weight loss: NO. Imaging: PATIENT REPORTS DR. SHARMA ORDERED X-RAYS AND TOLD HER SHE HAS MODERATE DEGENERATIVE DISC. PMH: UNCONTROLLED A FIB EPISODE TREATED WITH CARDIOVERSION AND NOW ON BLOOD THINNER. ASTHMA. ABOUT 2 YEARS AGO BECAME SEPTIC AND WENT INTO RESPIRATORY FAILURE AFTER HAVING PNEUMONIA. LONG STAY IN [facility]ITENT[facility]ARY FEB TO JUNE 2017 WITH A LOT OF REHAB. ALSO PT AT HOME AND HERE AT [facility] FOLLOWING [facility]. ABDOMINAL HERNIA REPAIRS. RIGHT PARTIAL SHOULDER REPLACEMENT. PLOF - PATIENT REPORTS THAT IN THE LAST SIX WEEKS IT HAS BECOME INCREASINGLY DIFFICULT TO STAND AND WALK TO DO HER HOUSEWORK AND OTHER ADL'S. OTHER: LIVES WITH SOON TO BE X- AND DISABLED DAUGHTER. DAUGHTER IS 22 AND HAS MILD CP AND MODERATE COGNITIVE DELAYS. SHE IS ABLE TO WALK BUT NEEDS HELP WITH BATHING AND OTHER PERSONAL CARE. 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 INTERMITTENT NUMBNESS FROM THE WAIST DOWN STARTED ABOUT 2 YEARS AGO. EPISODES ARE OCCURING MORE OFTEN. STATES HER LEGS GET LIKE JELLO AND SHE IS AFRAID SHE IS GOING TO FALL. STATES SHE HAS TALKED TO DR. SHARMA ABOUT IT FOR ABOUT 2 YEARS. - Objective THIS PT DISCUSSED CAUDA EQUINA SYNDROME WITH PATIENT AND INSTRUCTED PATIENT TO GO TO THE ED IF SHE HAS LOSS OF BOWEL OR BLADDER CONTROL. PATIENT COMMUNICATED A GOOD UNDERSTADING OF INSTRUCTIONS. Sitting/Standing Posture: Lordosis: REDUCED. Lateral shift: SCOLIOSIS. Active Correction of posture: WORSE - LEFT LBP. Other Observations: ANTALGIC INDEP GAIT INTO PT WITHOUT AD OR LOB. INCREASED TRUNK FLEXION. INDEP TRANSFER SIT TO STAND WITHOUT UE ASSIST. Motor deficit: SERGIO LE WEAKNESS. HIPS 3+ TO 4-/5, KNEE EXT 4/5, KNEE FLEX 4/5, SERGIO ANKLES 4/5. Sensory deficit: NO. ROM deficit: TIGHT SERGIO GASTROC SOLEUS COMPLEX'S AND HIP FLEXORS. Reflexes: NT. Dural Signs: POSITIVE SERGIO LE'S. Lumbar mvmt loss: flex - MIN. ext - PARMINDER. R SG - MOD. L SG - PARMINDER. PATIENT WITH INCREASED C/O LEFT LBP WITH LUMBAR ROM TESTING ALL PLANES. Core strength: POOR. Palpation: ACUTE TENDERNESS OF LUMBAR SPINE AND NUMBNESS IN SACRAL REGION. - Goals Goal 1:: DECREASE C/O BACK AND SERGIO LE SX'S. Goal Time Frame: 4-6 Weeks Goal 2:: IMPROVE PERSONAL CARE, LIFTING, WALKING, STANDING, SLEEP, SOCIAL LIFE, TRAVEL AND HOMEMAKING FUNCTION Goal Time Frame: 4-6 Weeks Goal 3:: INSTRUCT IN PROPHYLAXIS - Rehabilitation Potential Rehabilitation Potential: Fair - Anticipated Interventions Patient/Client Instruction: Educate patient on: Condition, Plan of Care, Risk Factors, Benefits of Fitness Program For the Purpose of:: To improve self management Therapeutic Exercise to Include: Strength training, Body mechanics, Postural training, Flexibilty training, Gait and locomotor training, In an aquatic setting, Dynamic Lumbar Stabilization For the Purpose of:: To decrease pain, To increase ROM, To improve muscle performance and motor function, To increase tolerance to activity/condition/position, To improve ability of physical actions for home/community/work/leisure, To improve gait and locomotor functions Thank you for the opportunity to evaluate your patient. For Medicare and Medicare HMO plans, please review the plan of care and approve it. It will need to be FAXED BACK to us at [phone] for Medicare purposes. For Medicare only, by signing this I certify the plan of care. Please let me know if there are questions or concerns regarding this plan of care. Physician Signature: Date:
--- NOTE | 2018-09-11 11:41 | HP.PTDCSUM ---
HP - PT D/C Summary It has been my pleasure to treat LAURA SERRANO under orders from Ervin Sharma MD, for the diagnosis of LUMBAR DDD for a total of 11 visit(s). Discharge Date: 09/11/18 Please see the following information for a summary of their discharge status. - Subjective Subjective: PATIENT REPORTS PAIN ACROSS LOW BACK LEFT > RIGHT AND DOWN LEFT LE TO FOOT 4/10 SITTING AND 7/10 WALKING TODAY. ALSO PAIN INTO THE GROIN. OVER-ALL [place] REPORTS SHE IS NO BETTER AND NO WORSE. STATES SHE STILL CAN NOT STAND OR WALK FOR ANY SIGNIFICANT TIME WITHOUT A LOT OF PAIN. RIGHT UE MIGHT BE MORE SORE FROM TRYING TO EXERCISE WITH IT IN THE POOL BUT STATES IT IS A LOT EASIER TO MOVE HER RIGHT UE IN THE WATER. HAVING A LOT OF PAIN TRYING TO SHOP AND DO HOUSEWORK. STATES SHE ALMOST CALLED DR. SHARMA LAST WEEK BUT THERE HAS BEEN A LOT GOING ON. REPORTS THE WATER DEFINATELY FEELS EASIER TO MOVE IN BUT NO BETTER OVER-ALL. WANTS TO EVENTUALLY GET SILVER SNEAKERS TO DO WATER EX ON HER OWN AT A LOWER COST. STATES AT THIS POINT HER INSURANCE IS CHANGING AND SHE CAN NOT AFFORD TO DO MORE PT. - Pain Lumbar Spine Pain Intensity (Out of 10): 7 LLE Pain Intensity (Out of 10): 7 - Objective Objective/Function: OVERALL THERE ARE NO SIGNIFICANT CHANGES SINCE STARTING PT. THERE ALSO HAS BEEN NO SIGNIFICANT CHANGE IN LUMBAR OSWESTRY SCORE SINCE INITIAL EVAL. - Goals Goal 1:: DECREASE C/O BACK AND SERGIO LE SX'S. Goal Progress: Not Progressing Goal 2:: IMPROVE PERSONAL CARE, LIFTING, WALKING, STANDING, SLEEP, SOCIAL LIFE, TRAVEL AND HOMEMAKING FUNCTION Goal Progress: Not Progressing Goal 3:: INSTRUCT IN PROPHYLAXIS Goal Progress: Not Progressing - Plan Plan: D/C DUE TO LACK OF PROGRESS. RECOMMEND PHYSICIAN FOLLOW UP. PATIENT IS AGREEABLE. - D/C Information If there are questions or concerns regarding this patient's physical therapy, please feel free to call me at [phone]. Thank you for the referral of this patient. Sincerely, Alexandra Boswell, PT, Cert MDT
== END 2018-09-11 19:00 | disposition home or self-care (01) ==
LOC: PT 11:00
PROVIDERS: Family Provider Family Medicine; PCP Family Medicine; Referring Provider Family Medicine; Visit Provider Family Medicine
DX: M51.36 Other intervertebral disc degeneration, lumbar region (principal)
CPT/HCPCS: 97113; 97162; 97530

== ENCOUNTER → 2018-11-30 09:43 | Outpatient (CLI) | payer OTHER, SELFPAY ==
[2018-09-18 08:45] VITALS: BMI 43.1
--- NOTE | 2018-11-30 09:48 | VDLE_ITS ---
Reason For Study: swelling RIGHT LEFT CFV is compressible, spontaneous, phasic, GSV is normal. competent and demonstrates normal CFV is compressible, spontaneous, phasic, augmentation. competent, and demonstrates normal FV is compressible, spontaneous, phasic, augmentation. competent and demonstrates normal FV is compressible, spontaneous, phasic, augmentation. competent and demonstrates normal POP V is compressible, spontaneous, phasic, augmentation. competent and demonstrates normal POP V is compressible, spontaneous, phasic, augmentation. competent and demonstrates normal T/P Trunk is compressible. augmentation. PTV is compressible. T/P Trunk is compressible. RT PerV is compressible. PTV is compressible. GSV is abesnt S/P EVLA. LT PerV is compressible. Procedure Exam performed in department. The exam was diagnostic. A preliminary report was called and/or faxed to Dr. Schaeffer. Interpretation Summary Deep veins of the lower extremities are bilaterally patent and compressible segmentally. There is no evidence of deep vein thrombosis on either side. Valvular competence appears intact within the proximal deep venous systems bilaterally. The right great saphenous vein is absent. The left great saphenous vein appears patent and compressible segmentally. Ordering Physician: Barbara Schaeffer Performed By: Fortino Valdovinos RVT
== END ==
PROVIDERS: Family Provider Family Medicine; PCP Family Medicine; Referring Provider Family Medicine; Visit Provider Family Medicine
DX: M79.89 Other specified soft tissue disorders (principal)
CPT/HCPCS: 93970

== ENCOUNTER → 2019-01-01 12:13 | Outpatient (CLI) | payer MEDICARE, SELFPAY ==
[2018-09-18 08:45] VITALS: BMI 43.1
[2019-01-01 14:06] LABS: Vitamin D,25 Hydroxy 25.8 ng/mL (29.95-100.01)
[2019-01-01 14:24] LABS: Anion Gap 8 (5-15); BUN 53 mg/dL (7-18); BUN/Creat Ratio 30.6 RATIO (10-20); Calcium,Total 9.1 mg/dL (8.5-10.1); Chloride 109 mmol/L (98-107); Cholesterol 237 mg/dL (200); Creatinine, Serum 1.73 mg/dL (0.55-1.02); EST Glomerular Filtration Rate 31 mL/min (>60); Est Glom Filt Rate - Afr Amer 38 mL/min (>60); Glucose 88 mg/dL (74-106); High Density Lipoprotein 51 mg/dL; Potassium 5.1 mmol/L (3.5-5.1); Sodium Level 137 mmol/L (136-145); Thyroid Stim Hormone (TSH) 1.39 uIU/mL (0.358-3.74); Triglycerides 154 mg/dL; Very Low Density Lipoprotein 31 mg/dL (5-40)
== END ==
PROVIDERS: Family Provider Family Medicine; PCP Family Medicine; Visit Provider Family Medicine
DX: E03.9 Hypothyroidism, unspecified (principal); E11.9 Type 2 diabetes mellitus without complications; E55.9 Vitamin D deficiency, unspecified
CPT/HCPCS: 36415; 80048; 80061; 82306; 84443

== ENCOUNTER → 2019-01-10 12:19 | Outpatient (CLI) | payer MEDICARE, SELFPAY ==
[2018-09-18 08:45] VITALS: BMI 43.1
[2019-01-10 14:49] LABS: Anion Gap 10 (5-15); BUN 67 mg/dL (7-18); BUN/Creat Ratio 36.4 RATIO (10-20); Calcium,Total 9.3 mg/dL (8.5-10.1); Chloride 113 mmol/L (98-107); Creatinine, Serum 1.84 mg/dL (0.55-1.02); EST Glomerular Filtration Rate 29 mL/min (>60); Est Glom Filt Rate - Afr Amer 35 mL/min (>60); Glucose 83 mg/dL (74-106); Potassium 4.3 mmol/L (3.5-5.1); Sodium Level 140 mmol/L (136-145)
== END ==
PROVIDERS: Family Provider Family Medicine; PCP Family Medicine; Referring Provider Family Medicine; Visit Provider Family Medicine
DX: N28.9 Disorder of kidney and ureter, unspecified (principal)
CPT/HCPCS: 36415; 80048

== ENCOUNTER → 2019-01-16 16:09 | Outpatient (CLI) | payer MEDICARE, OTHER, SELFPAY ==
[2018-09-18 08:45] VITALS: BMI 43.1
--- NOTE | 2019-01-16 16:16 | RAD_ITS ---
STUDY: X-RAY CHEST REASON FOR EXAM: Female, 64 years old. Short of breath and cough TECHNIQUE: AP portable COMPARISON: February 14, 2018 FINDINGS: There are chronic interstitial changes most pronounced in the lower lobes.. There is a subtle nodular opacity projecting over the right upper lobe measuring approximately 1.5 x 1.1 cm There is no demonstrated pleural abnormality. Normal size heart. Normal mediastinum and tami. Normal visualized pulmonary arteries. Normal visualized aortic arch and descending thoracic aorta. Dorsal spine demonstrates scoliosis and degenerative change. Normal visualized ribs, and clavicles,. There are degenerative changes of the left shoulder and right shoulder prosthesis noted There is no demonstrated abnormality of the visualized soft tissue structures of the upper abdomen. No significant change since prior exam RAD/Chest PA and Lateral IMPRESSION: Chronic interstitial changes. Stable appearance to right upper lobe nodular opacity No acute cardiopulmonary pathology Electronically Signed: Dakota Torres MD at 22:58 EST , Service support ,
== END ==
PROVIDERS: Family Provider Family Medicine; PCP Family Medicine; Referring Provider Family Medicine; Visit Provider Family Medicine
DX: J40 Bronchitis, not specified as acute or chronic (principal)
CPT/HCPCS: 71046

== ENCOUNTER → 2019-01-20 16:30 | Outpatient (CLI) | payer MEDICARE, OTHER, SELFPAY ==
[2018-09-18 08:45] VITALS: BMI 43.1
== END ==
PROVIDERS: Family Provider Family Medicine; PCP Family Medicine; Visit Provider Family Medicine
DX: R19.7 Diarrhea, unspecified (principal)
CPT/HCPCS: 87493

== ENCOUNTER → 2019-02-22 10:47 | Outpatient (CLI) | payer MEDICARE, OTHER, SELFPAY ==
[2019-01-25 11:47] VITALS: BMI 41.7
--- NOTE | 2019-02-22 10:50 | ECHOCS_ITS ---
Reason For Study: PHTN Procedure This was a 2D Doppler, Color Flow transthoracic echocardiogram. The study was technically difficult. Contrast injection was performed. Exam performed in department. Left Ventricle Normal size and thickness. The estimated ejection fraction is 65 %. Stage 2 diastolic dysfunction. No regional wall motion abnormalities noted. Right Ventricle Mildly dilated right ventricle. Normal systolic function. Atria The left atrium is mildly enlarged. Normal right atrium. Normal atrial septum. Mitral Valve The mitral valve is structurally normal. No prolapse or stenosis seen. Tricuspid Valve Normal tricuspid valve. Trivial tricuspid valve insufficiency. Right ventricular systolic pressure estimated to be 35 mmHg. Aortic Valve Normal aortic valve. Trisinus/trileaflet aortic valve. Pulmonic Valve Normal pulmonic valve. Great Vessels Normal aortic root. Normal arch. Normal inferior vena cava. Inferior vena cava collapse with sniff. Pericardium/Pleural No pericardial effusion. Medication 22 gauge I.V. with prn adaptor inserted into right arm. Diluted definity 4.0ml given slow IV push to enhance endocardial definition. MMode/2D Measurements & Calculations LVIDd: 4.7 cm IVSd: 0.88 cm Ao root diam: 3.7 cm LVIDs: 3.5 cm LVPWd: 0.88 cm RVDd: 4.3 cm FS: 25.9 % LAV(MOD-bp): 72.9 ml LA A4 area: 23.0 cm2 LA dimension(2D): 5.0 cm LAV(MOD-bp) Indexed: 36.0 ml/m2 LAV(MOD-sp2): 68.1 ml LAV(MOD-sp4): 64.7 ml RA A4 area: 17.9 cm2 Time Measurements MV dec time: 0.21 sec Doppler Measurements & Calculations MV E max lei: 127.1 cm/sec Lat Peak E' Lei: 10.0 cm/sec Med Peak E' Lei: 9.7 cm/sec MV A max lei: 94.7 cm/sec E/E' lat: 12.7 E/E' med: 13.0 MV E/A: 1.3 Ao V2 max: 181.6 cm/sec LV V1 max: 170.9 cm/sec PA V2 max: 120.7 cm/sec Ao max P.2 mmHg LV V1 max P.7 mmHg TR max lei: 279.1 cm/sec TR max P.6 mmHg Interpretation Summary The estimated ejection fraction is 65 %. Stage 2 diastolic dysfunction. Mildly dilated right ventricle. The left atrium is mildly enlarged. Trivial tricuspid valve insufficiency. Right ventricular systolic pressure estimated to be 35 mmHg. Compared to echo result dated 08/01/2017, no appreciable changes noted. The study was technically difficult. Contrast injection was performed. Ordering Physician: Darrian Woods Referring Physician: MORENO SHARMA Performed By: Elaine Marvin, RAGHAVENDRA, RVT
[2019-02-22 12:47] LABS: Anion Gap 5 (5-15); BUN 34 mg/dL (7-18); BUN/Creat Ratio 19.3 RATIO (10-20); Calcium,Total 9.3 mg/dL (8.5-10.1); Chloride 109 mmol/L (98-107); Creatinine, Serum 1.76 mg/dL (0.55-1.02); EST Glomerular Filtration Rate 31 mL/min (>60); Est Glom Filt Rate - Afr Amer 37 mL/min (>60); Glucose 92 mg/dL (74-106); Potassium 4.5 mmol/L (3.5-5.1); Sodium Level 137 mmol/L (136-145)
== END ==
PROVIDERS: Family Provider Family Medicine; PCP Family Medicine; Referring Provider Internal Medicine Cardiovascular Disease; Visit Provider Internal Medicine Cardiovascular Disease
DX: I47.1 Supraventricular tachycardia (principal); Z86.711 Personal history of pulmonary embolism; I10 Essential (primary) hypertension; E11.9 Type 2 diabetes mellitus without complications; G47.33 Obstructive sleep apnea (adult) (pediatric)
CPT/HCPCS: 36415; 80048; 93306; Q9957; A4216; C8929

== ENCOUNTER → 2019-04-16 16:54 | Outpatient (CLI) | payer MEDICARE, OTHER, SELFPAY ==
[2019-04-16 08:10] VITALS: BMI 41.8
== END ==
PROVIDERS: PCP Family Medicine; Referring Provider Internal Medicine Critical Care Medicine; Visit Provider Internal Medicine Critical Care Medicine
DX: J45.40 Moderate persistent asthma, uncomplicated (principal)
CPT/HCPCS: 87633

== ENCOUNTER → 2019-04-17 | Outpatient (CLI) | payer MEDICARE, OTHER, SELFPAY ==
[2019-04-16 08:10] VITALS: BMI 41.8
== END | disposition home or self-care (01) ==
LOC: LABSPEC 13:02
PROVIDERS: PCP Family Medicine; Referring Provider Internal Medicine Critical Care Medicine; Visit Provider Internal Medicine Critical Care Medicine
DX: J45.40 Moderate persistent asthma, uncomplicated (principal)
CPT/HCPCS: 87070; 87077; 87186; 87205

== ENCOUNTER → 2019-06-19 11:08 | Outpatient (CLI) | payer MEDICARE, OTHER, SELFPAY ==
[2019-06-13 11:08] VITALS: BMI 41.7
[2019-06-19 14:58] LABS: Anion Gap 7 (5-15); BUN 56 mg/dL (7-18); BUN/Creat Ratio 25.8 RATIO (10-20); Calcium,Total 9.3 mg/dL (8.5-10.1); Chloride 112 mmol/L (98-107); Creatinine, Serum 2.17 mg/dL (0.55-1.02); EST Glomerular Filtration Rate 24 mL/min (>60); Est Glom Filt Rate - Afr Amer 29 mL/min (>60); Glucose 86 mg/dL (74-106); Sodium Level 141 mmol/L (136-145)
[2019-06-19 15:04] LABS: Vitamin D,25 Hydroxy 38.8 ng/mL
== END ==
PROVIDERS: PCP Family Medicine; Visit Provider Family Medicine
DX: E55.9 Vitamin D deficiency, unspecified (principal); N28.9 Disorder of kidney and ureter, unspecified
CPT/HCPCS: 36415; 80048; 82306

== ENCOUNTER → 2019-06-28 10:15 | Outpatient (CLI) | payer MEDICARE, OTHER, SELFPAY ==
[2019-06-13 11:08] VITALS: BMI 41.7
[2019-06-28 13:46] LABS: Anion Gap 6 (5-15); BUN 49 mg/dL (7-18); BUN/Creat Ratio 32.2 RATIO (10-20); Chloride 113 mmol/L (98-107); Creatinine, Serum 1.52 mg/dL (0.55-1.02); EST Glomerular Filtration Rate 36 mL/min (>60); Est Glom Filt Rate - Afr Amer 44 mL/min (>60); Glucose 100 mg/dL (74-106); Potassium 5.2 mmol/L (3.5-5.1); Sodium Level 140 mmol/L (136-145)
== END ==
PROVIDERS: PCP Family Medicine; Visit Provider Family Medicine
DX: I10 Essential (primary) hypertension (principal)
CPT/HCPCS: 36415; 80048

== ENCOUNTER → 2019-07-19 11:16 | Outpatient (CLI) | payer MEDICARE, OTHER, SELFPAY ==
[2019-06-13 11:08] VITALS: BMI 41.7
[2019-07-19 15:58] LABS: Anion Gap 9 (5-15); BUN 37 mg/dL (7-18); BUN/Creat Ratio 19.8 RATIO (10-20); Calcium,Total 9.1 mg/dL (8.5-10.1); Chloride 106 mmol/L (98-107); Creatinine, Serum 1.87 mg/dL (0.55-1.02); EST Glomerular Filtration Rate 29 mL/min (>60); Est Glom Filt Rate - Afr Amer 35 mL/min (>60); Glucose 93 mg/dL (74-106); Potassium 4.6 mmol/L (3.5-5.1); Sodium Level 139 mmol/L (136-145)
== END ==
PROVIDERS: PCP Family Medicine; Referring Provider Family Medicine; Visit Provider Family Medicine
DX: R60.9 Edema, unspecified (principal)
CPT/HCPCS: 36415; 80048

== ENCOUNTER → 2019-08-14 10:05 | Outpatient (CLI) | payer MEDICARE, OTHER, SELFPAY ==
[2019-07-27 10:32] VITALS: BMI 43.0
--- NOTE | 2019-08-14 10:06 | STEWCON_ITS ---
Reason For Study: AFIB/FLUTTER Stress Results Protocol: Modified Antoni Protocol With Definity Maximum Predicted HR: 155 bpm Target HR: 132 bpm % Maximum Predicted HR: 99 % DurationHeart Rate Stage (mm:ss) (bpm) BP Comment BASELINE 83 102/623 CC DEFINITY TOTAL FOR TEST STAGE 0 3:00 141 160/78 STAGE 1/2 3:00 153 170/72INCREASED SOB STAGE 1 0:23 153 / SOB RECOVERY 88 126/78 Stress Duration: 6:23 mm:ss Maximum Stress HR: 153 bpm Baseline Echocardiogram Findings The estimated ejection fraction is 65 %. Stress Echo Wall motion Data Resting WM Intermediate WM Stress WM Resting Wall Motion Wall Motion Stress No regional wall motion No regional wall motion abnormalities noted. abnormalities noted. EKG Data The baseline ECG displays normal sinus rhythm. The maximum heart rate attained was 196 beats per minute. This was 126% of maximum predicted heart rate. During stress, there were no ST or T wave changes noted to suggest ischemia. No clinical angina was noted. No arrhythmias noted. Interpretation Summary The estimated ejection fraction is 65 %. Normal, adequate, modified Antoin treadmill echocardiogram. Negative for ischemia by EKG and echocardiographic criteria. No anginal symptoms noted. No arrhythmias noted. Appropriate blood pressure response to exercise. Below average exercise capacity for age. Final LVEF is 75%. Test terminated due to heart rate achieved, dyspnea and no chest pain symptoms. Decrease sensitivity due to poor echo windows requiring Definity agent. No complications. The study was technically difficult. Contrast injection was performed. Ordering Physician: Darrian Woods Referring Physician: Darrian Woods Performed By: Sandy Hansen, RAGHAVENDRA, RVT
[2019-08-14 11:10] LABS: AST(SGOT) 9 U/L (15-37); Alanine Aminotransfer ALT/SGPT 19 U/L (13-56); Albumin, Serum 3.4 g/dL (3.2-5.0); Alkaline Phosphatase 107 U/L (45-117); Bilirubin, Direct 0.06 mg/dL (0.00-0.30); Cholesterol 217 mg/dL (200); Globulin 4.3 g/dL (2.2-4.2); High Density Lipoprotein 43 mg/dL; Protein, Total 7.7 g/dL (6.4-8.2); Triglycerides 208 mg/dL; Very Low Density Lipoprotein 42 mg/dL (5-40)
== END ==
PROVIDERS: PCP Family Medicine; Referring Provider Internal Medicine Cardiovascular Disease; Visit Provider Internal Medicine Cardiovascular Disease
DX: R06.09 Other forms of dyspnea (principal); I48.91 Unspecified atrial fibrillation; E78.5 Hyperlipidemia, unspecified
CPT/HCPCS: 36415; 80061; 80076; 93017; 93350; Q9957; A4216; C8928

== ENCOUNTER → 2019-10-04 10:42 | Outpatient (CLI) | payer MEDICARE, OTHER, SELFPAY ==
[2019-07-27 10:32] VITALS: BMI 43.0
--- NOTE | 2019-10-04 10:50 | BD_ITS ---
STUDY: DUAL ENERGY X-RAY ABSORPTIOMETRY / DXA REASON FOR EXAM: Female, 64 years old. 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 COMPARISON: Comparison is made with prior study dated 11/15/2007. FINDINGS: Lumbar Spine (L1-L4): g/cm2 (1.346) / T-score (1.4) / Z-score (3.0) Findings are suggestive of normal bone density with a low fracture risk. Left Femur Total: g/cm2 (0.915) / T-score (-0.7) / Z-score (0.5) Left Femoral Neck: g/cm2 (0.742) / T-score (-2.1) / Z-score (-0.6) Right Femur Total: g/cm2 (0.935) / T-score (-0.6) / Z-score (0.6) Right Femoral Neck: g/cm2 (0.859) / T-score (-1.3) / Z-score (0.2) The T-Scores on the most recent prior examination were: Lumbar Spine (L1-L4): There has been improvement of bone density since the previous examination. Left Femur Total: which represents a worsening of 11.7%. BD/Dexa Bone Density Study IMPRESSION: The patient is considered osteopenic as outlined below according to World Clifford Organization (WHO) criteria with a moderate fracture risk. There has been worsening of bone density since the previous examination. Reference Information: The T-score is the number of standard deviations above or below the standard which is normal for young adults at their peak bone mineral density. The World Health Organization (WHO) interprets the T-scores as follows: Above -1 Normal bone density Between -1 and -2.5 Osteopenia Equal to / or below -2.5 Osteoporosis As a practical clinical guideline, osteopenia may be graded as follows: Mild -1 through -1.5 Moderate -1.6 through -2.0 Severe -2.1 through -2.4 The Z-score is the number of standard deviations above or below age-matched controls. A Z-score of less than -1.5 would be considered abnormal. References: 1. NIH Osteoporosis and Related Bone Diseases http://www.osteo.org 2. International Society for Clinical Densitometry http://www.iscd.org 3. National Osteoporosis Foundation http://www.nof.org Electronically Signed: Lance Back, at 10:53 EDT , Service support ,
== END ==
PROVIDERS: PCP Family Medicine; Referring Provider Family Medicine; Visit Provider Family Medicine
DX: Z79.899 Other long term (current) drug therapy (principal); Z87.891 Personal history of nicotine dependence; M85.80 Other specified disorders of bone density and structure, unspecified site; Z78.0 Asymptomatic menopausal state
CPT/HCPCS: 77080

== ENCOUNTER → 2019-10-26 13:00 | Outpatient (CLI) | payer MEDICARE, OTHER, SELFPAY ==
[2019-10-18 12:32] VITALS: BMI 44.7
== END ==
PROVIDERS: PCP Family Medicine; Referring Provider Nurse Practitioner Acute Care; Visit Provider Nurse Practitioner Acute Care
DX: J45.909 Unspecified asthma, uncomplicated (principal)
CPT/HCPCS: 87070; 87077; 87186; 87205

== ENCOUNTER → 2019-11-06 09:31 | Outpatient (CLI) | payer MEDICARE, OTHER, SELFPAY ==
[2019-10-18 12:32] VITALS: BMI 44.7
--- NOTE | 2019-11-06 09:35 | VDLE_ITS ---
Reason For Study: pain RIGHT GSV is normal. CFV is compressible, spontaneous, phasic, competent and demonstrates normal augmentation. FV is compressible, spontaneous, phasic, competent and demonstrates normal augmentation. POP V is compressible, spontaneous, phasic, competent and demonstrates normal augmentation. T/P Trunk is compressible. PTV is compressible. RT PerV is compressible. Procedure Exam performed in department. The exam was abbreviated due to the COVID 19 protocol. The exam was diagnostic. A preliminary report was called and/or faxed to Dr. Donnelly. Interpretation Summary Deep veins of the right lower extremity are patent and compressible segmentally. There is no evidence of right lower extremity deep vein thrombosis. Valvular competence appears intact within the proximal deep venous system on the right . The right great saphenous vein appears patent and compressible segmentally. Ordering Physician: Ervin Donnelly Performed By: Fortino Valdovinos RVT
--- NOTE | 2019-11-06 09:37 | RAD_ITS ---
STUDY: X-RAY CHEST REASON FOR EXAM: Female, 64 years old. Bronchitis, SOB, cough -- x 1 week TECHNIQUE: PA and lateral views of the chest. COMPARISON: Comparison is made with prior study dated 10/17/2018. FINDINGS: There is a 1.7 cm x 1.3 cm nodule in the lateral aspect of the right upper lobe abutting the minor fissure. This is unchanged. There is no demonstrated pleural abnormality. Normal size heart. Normal mediastinum and tami. Normal visualized pulmonary arteries. There is atherosclerotic tortuosity of the aortic arch and descending thoracic aorta. There are diffuse degenerative changes of the visualized thoracic spine. Prior right shoulder replacement. There is no demonstrated abnormality of the visualized soft tissue structures of the upper abdomen. RAD/Chest PA and Lateral IMPRESSION: Stable examination. 1.3 cm x 1.7 cm nodule in the anterior aspect of the right upper lobe abutting the right minor fissure. Electronically Signed: Lance Back, at 10:11 EDT , Service support ,
== END ==
PROVIDERS: PCP Family Medicine; Referring Provider Family Medicine; Visit Provider Family Medicine
DX: J40 Bronchitis, not specified as acute or chronic (principal); M79.604 Pain in right leg
CPT/HCPCS: 71046; 93971

== ENCOUNTER → 2019-11-22 16:52 | Outpatient (CLI) | payer MEDICARE, OTHER, SELFPAY ==
[2019-11-16 13:04] VITALS: BMI 44.7
[2019-11-22 17:52] LABS: Erythrocyte Sedimentation Rate 23 mm/hr (0-30)
[2019-11-22 19:03] LABS: CPK Total, Creatine Kinase 145 U/L (26-192); CRP 8.87 mg/L (0.0-3.0)
== END ==
PROVIDERS: PCP Family Medicine; Referring Provider Family Medicine; Visit Provider Family Medicine
CPT/HCPCS: 36415; 82550; 85652; 86140

== ENCOUNTER → 2019-11-29 11:46 | Outpatient (CLI) | payer MEDICARE, OTHER, SELFPAY ==
[2019-11-16 13:04] VITALS: BMI 44.7
--- NOTE | 2019-11-29 11:53 | RAD_ITS ---
STUDY: X-RAY - LEFT SHOULDER REASON FOR EXAM: Female, 64 years old. Pain, polyarthralgia TECHNIQUE: 4 view(s) of the shoulder. COMPARISON: None. FINDINGS: Normal glenohumeral articulation. Normal acromioclavicular joint. Normal acromion. Normal humeral head and visualized proximal humerus. The soft tissue structures are unremarkable. Normal visualized pulmonary apex. RAD/Shoulder min 2 Views IMPRESSION: Normal x-ray examination of the shoulder. Electronically Signed: Lance Back, at 12:44 EDT , Service support ,
--- NOTE | 2019-11-29 11:55 | RAD_ITS ---
STUDY: X-RAY - LEFT KNEE REASON FOR EXAM: Female, 64 years old. Pain, polyarthralgia TECHNIQUE: 4 view(s) of the knee. COMPARISON: None. FINDINGS: Degenerative spurring along the medial distal femoral condyle. Normal visualized proximal tibia and fibula. Normal proximal tibiofibular articulation. There is severe degenerative arthrosis of the medial femorotibial compartment with severe joint space narrowing. Normal lateral femorotibial compartment. There is moderate degenerative arthrosis of the patellofemoral articulation. The soft tissue structures are unremarkable. RAD/Knee 4 or More Views IMPRESSION: Degenerative arthrosis. Electronically Signed: Lance Back, at 12:42 EDT , Service support ,
--- NOTE | 2019-11-29 12:05 | RAD_ITS ---
STUDY: X-RAY - LEFT HAND REASON FOR EXAM: Female, 64 years old. Pain, polyarthralgia TECHNIQUE: 3 view(s) of the hand. COMPARISON: None. FINDINGS: Normal radiocarpal articulation. Normal distal radioulnar joint. Normal visualized carpal bones. Normal carpal articulations Normal carpometacarpal articulation of the thumb. Normal second through fifth carpometacarpal joints. Normal metacarpi. Normal metacarpophalangeal joint of the thumb. Normal interphalangeal joint of the thumb. Normal proximal and distal phalanges of the thumb. Normal metacarpophalangeal joints of the second through fifth fingers. Normal proximal and distal interphalangeal joints of the second through fifth fingers. Normal phalanges of the second through fifth fingers. The soft tissue structures are unremarkable. RAD/Hand Min 3 Views IMPRESSION: Normal x-ray examination of the hand. Electronically Signed: Lance Back, at 12:41 EDT , Service support ,
--- NOTE | 2019-11-29 12:07 | RAD_ITS ---
STUDY: X-RAY - RIGHT HAND REASON FOR EXAM: Female, 64 years old. Pain, polyarthralgia TECHNIQUE: 3 view(s) of the hand. COMPARISON: None. FINDINGS: Normal radiocarpal articulation. Normal distal radioulnar joint. Normal visualized carpal bones. Normal carpal articulations Normal carpometacarpal articulation of the thumb. Normal second through fifth carpometacarpal joints. Normal metacarpi. Normal metacarpophalangeal joint of the thumb. Normal interphalangeal joint of the thumb. Normal proximal and distal phalanges of the thumb. Normal metacarpophalangeal joints of the second through fifth fingers. Normal proximal and distal interphalangeal joints of the second through fifth fingers. Normal phalanges of the second through fifth fingers. The soft tissue structures are unremarkable. RAD/Hand Min 3 Views IMPRESSION: Normal x-ray examination of the hand. Electronically Signed: Lance Back, at 12:40 EDT , Service support ,
--- NOTE | 2019-11-29 12:08 | RAD_ITS ---
STUDY: X-RAY - RIGHT KNEE REASON FOR EXAM: Female, 64 years old. Pain, polyarthralgia TECHNIQUE: 4 view(s) of the knee. COMPARISON: None. FINDINGS: Subchondral cystic changes seen in the distal femoral medial condyle. Normal visualized proximal tibia and fibula. Normal proximal tibiofibular articulation. There is severe degenerative arthrosis of the medial femorotibial compartment with severe joint space narrowing. Normal lateral femorotibial compartment. There is moderate degenerative arthrosis of the patellofemoral articulation. There are atherosclerotic calcifications. RAD/Knee 4 or More Views IMPRESSION: Degenerative arthrosis. Electronically Signed: Lance Back, at 12:42 EDT , Service support ,
[2019-11-29 15:07] LABS: Absolute Lymphocyte Count 1.31 X10^3/uL (0.83-4.51); Absolute Neutrophil Count 3.7 X10^3/uL (2.0-7.7); Basophil# 0.03 X10^3/uL; Basophil% 0.5 % (0-1); Eosinophil# 0.19 X10^3/uL; Eosinophils% 3.3 % (0-5); Hematocrit 34.4 % (37-47); Hemoglobin 10.3 g/dL (12.0-15.0); Lymphocyte # 1.31 X10^3/ul (4.0); Lymphocyte % 22.8 % (19-41); Mean Corp Hgb Conc 29.9 g/dL (32-36); Mean Corpuscular Hgb 29.7 pg (27.0-32.0); Mean Corpuscular Volume 99.1 fL (81-99); Mean Platelet Vol. 10.7 fl (6.2-12.0); Monocyte% 8.7 % (0-10); NRBC Flagged by Analyzer 0 % (0-5); Neutrophil # 3.69 X10^3/uL (2.7-7.7); Neutrophil % 64.2 % (47-70); Platelet Count 284 K/mm3 (150-450); RBC Distribution Width CV 13.8 % (11.6-14.6); RBC Distribution Width SD 49.7 fl (35.1-43.9); Red Blood Count 3.47 M/mm3 (4.2-5.4); White Blood Count 5.8 K/mm3 (4.4-11.0)
[2019-11-29 15:21] LABS: Erythrocyte Sedimentation Rate 24 mm/hr (0-30)
[2019-11-29 15:22] LABS: Vitamin D,25 Hydroxy 36.2 ng/mL
[2019-11-29 15:27] LABS: ALB/GLOB Ratio 0.8 RATIO (0.9-2.4); AST(SGOT) 11 U/L (15-37); Alanine Aminotransfer ALT/SGPT 20 U/L (13-56); Albumin, Serum 3.3 g/dL (3.2-5.0); Alkaline Phosphatase 90 U/L (45-117); Anion Gap 4 (5-15); BUN 30 mg/dL (7-18); BUN/Creat Ratio 16.5 RATIO (10-20); CRP 8.96 mg/L (0.0-3.0); Chloride 107 mmol/L (98-107); Creatinine, Serum 1.82 mg/dL (0.55-1.02); EST Glomerular Filtration Rate 30 mL/min (>60); Est Glom Filt Rate - Afr Amer 36 mL/min (>60); Globulin 4.2 g/dL (2.2-4.2); Glucose 91 mg/dL (74-106); Potassium 5.1 mmol/L (3.5-5.1); Protein, Total 7.5 g/dL (6.4-8.2); Rheumatoid Factor < 10.0 IU/mL (<15); Sodium Level 137 mmol/L (136-145); Thyroid Stim Hormone (TSH) 1.54 uIU/mL (0.358-3.74)
[2019-12-03 14:27] LABS: ANTINUCLEAR ANTIBODIES DIRECT Negative (Negative)
== END ==
PROVIDERS: PCP Family Medicine; Referring Provider Family Medicine; Visit Provider Family Medicine
DX: M25.50 Pain in unspecified joint (principal); M25.512 Pain in left shoulder; M79.641 Pain in right hand
CPT/HCPCS: 36415; 73030; 73130; 73564; 80053; 82306; 84443; 84550; 85025; 85652; 86038; 86140; 86431

== ENCOUNTER 2019-12-08 22:26 | Inpatient (IN) | payer MEDICARE, OTHER, SELFPAY ==
[2019-11-16 13:04] VITALS: BMI 44.7
[2019-12-08 22:27] VITALS: BP 146/49; PULSE 88; RESP 24; TEMP 39.4; O2SAT 99; BMI 44.9
[2019-12-08 22:31] VITALS: BP 146/49; PULSE 87; RESP 24; TEMP 39.4; O2SAT 99
--- NOTE | 2019-12-08 22:37 | EKG12_ITS ---
Test Reason : SOB Blood Pressure : / mmHG Vent. Rate : 096 BPM Atrial Rate : 096 BPM P-R Int : 150 ms QRS Dur : 068 ms QT Int : 326 ms P-R-T Axes : 002 -36 038 degrees QTc Int : 411 ms Normal sinus rhythm Left axis deviation Abnormal ECG Confirmed by ROB CARMONA, SHAHRZAD ([id number]), legal editor MAXWELL MILLS ([id number]) on 12/11/2019 10:26:02 AM Referred By: KELLY Confirmed By:SHAHRZAD RIVAS MD
--- NOTE | 2019-12-08 22:37 | RAD_ITS ---
STUDY: X-RAY CHEST REASON FOR EXAM: Female, 64 years old. FEVER -- CHRONIC SOB AND COUGH TECHNIQUE: Single AP portable view of the chest. COMPARISON: Chest x-ray 11/06/2019. And 09/30/2017. CT scan chest 12/09/2017. FINDINGS: There is a 1.7 cm nodule in the right upper lobe, projecting over the posterior segment of the right eighth rib, which has not increased in size. There is mild chronic atelectasis or fibrosis in the lung bases, left greater than right. There are no confluent pulmonary infiltrates. There is no demonstrated pleural abnormality. Normal size heart. Normal mediastinum and tami. Normal visualized aortic arch and descending thoracic aorta. There are no demonstrated acute fractures or destructive bone lesions. There is a right shoulder prosthesis. There is no demonstrated abnormality of the visualized soft tissue structures of the upper abdomen. RAD/Chest 1 View (Portable) IMPRESSION: Stable right upper lobe lung nodule. Chronic changes in the lung bases. No evidence for acute cardiopulmonary pathology. Electronically Signed: Archie Bowers MD at 0:22 EDT , Service support ,
--- NOTE | 2019-12-08 22:47 | ED.DCSUM_ITS ---
- ER Visit Summary Date of Service: 12/08/19 Chief Complaint: Fever History of Present Illness: The patient is a 64 F who presents with a fever that began today. Patient states it started as a low-grade fever and became worse tonight. Patient states she is coughing up thick yellow sputum. Patient states nothing makes it better or worse. Patient admits to some shortness of breath. Patient admits to some rhinorrhea and a sore throat when she coughs. Patient denies any loss of taste or smell. Patient admits to nausea but denies any vomiting. Patient denies any chest pain or palpitations. Patient admits to generalized arthralgias. Patient states she recently completed a course of Levaquin and doxycycline for MRSA and Pseudomonas in her lungs. Physical Examination: Vital signs are stable except for tachypnea of 24. Patient is febrile with a temperature of 103.0 here. Oral mucosa is pink and moist. Neck is supple. Trachea is midline. There is no JVD. Heart was regular rate and rhythm. Lungs showed diffuse expiratory wheezing. There is good respiratory effort noted. Abdomen is soft. Bowel sounds are normal. There is no tenderness. Cranial nerves II through XII are intact. There are no focal motor or sensory deficits noted. Test Results: EKG showed normal sinus rhythm with a rate of 98. There are no acute ST or T wave changes. This was unchanged compared to previous EKG dated 02/14/2018. CBC shows a mild anemia with a hemoglobin of 10.3 and hematocrit 34.1. Comprehensive metabolic profile showed a slightly elevated creatinine of 2.14 and a slightly elevated BUN of 33. These were slightly increased from previous results. PT with INR and PTT were normal. Lactate was normal. Urinalysis does not show any evidence of urinary tract infection. Portable chest x-ray was obtained. There is no acute cardiopulmonary process noted. Emergency Department Course and Treatment: Patient was given a dose of ibuprofen here. Patient is fever improved. Patient was given IV fluids. Patient's blood pressure dropped to 83/54 but this improved after the second liter of IV fluids. Patient was started on Zosyn and vancomycin. Patient's blood pressure dropped again and did not come back up after her 30 cc/kg bolus. Patient was informed of the need for central venous access and vasopressors. I discussed the procedure with the patient. She stated she had this done before. Patient was given opportunity ask questions. She had none. The right internal jugular area was cleaned and prepped in a sterile manner. The area was anesthetized 1% lidocaine locally. Using ultrasound guidance, the right internal jugular vein was cannulated with a needle. There is dark blood return. Guidewire was placed through the needle. Dilator was placed over the guidewire and the vein was d ilated. A triple-lumen catheter was placed then over the guidewire and the guidewire was removed. All 3 ports were flushed. The catheter was sutured in place. Portable chest x-ray was obtained. On my interpretation, the catheter was in satisfactory position and there was no pneumothorax. Patient tolerated the procedure well. Dressing was applied. Case was discussed with the hospitalist. He will admit the patient to ICU to his service. Patient understood and was agreeable with the plan. All questions were answered. Disposition: Admit to hospital Impression: 1. Septic shock Critical care time: 30 minutes. This was time spent obtaining history, performing physical examination, documenting, interpreting test results, discussion with consultants, and determining disposition. This note was generated with [employer] dictation software. It may contain incorrect words, spelling, and punctuation that were not noted in review of the chart jean or to signing ED Disposition - Plan for ED Patient: Disposition: Acute Care Hospital [facility] Diagnosis: Septic shock
[2019-12-08 22:57] LABS: Absolute Lymphocyte Count 1.23 X10^3/uL (0.83-4.51); Absolute Neutrophil Count 5.4 X10^3/uL (2.0-7.7); Basophil# 0.02 X10^3/uL; Basophil% 0.3 % (0-1); Eosinophil# 0.09 X10^3/uL; Eosinophils% 1.2 % (0-5); Hematocrit 34.1 % (37-47); Hemoglobin 10.3 g/dL (12.0-15.0); Lymphocyte # 1.23 X10^3/ul (4.0); Mean Corp Hgb Conc 30.2 g/dL (32-36); Mean Corpuscular Hgb 29.7 pg (27.0-32.0); Mean Corpuscular Volume 98.3 fL (81-99); Monocyte# 0.51 X10^3/uL; NRBC Flagged by Analyzer 0 % (0-5); Neutrophil # 5.38 X10^3/uL (2.7-7.7); Neutrophil % 74.2 % (47-70); Platelet Count 361 K/mm3 (150-450); RBC Distribution Width CV 13.8 % (11.6-14.6); RBC Distribution Width SD 49.7 fl (35.1-43.9); Red Blood Count 3.47 M/mm3 (4.2-5.4); White Blood Count 7.3 K/mm3 (4.4-11.0)
[2019-12-08 23:01] LABS: International Normalized Ratio 1.3; Prothrombin Time (Protime)PT. 15.3 SECONDS (11.7-14.9)
[2019-12-08 23:02] LABS: Partial Thromboplast Time 28.9 Seconds (24.1-36.2)
[2019-12-08 23:03] VITALS: PULSE 94; RESP 22
[2019-12-08 23:04] VITALS: BP 142/59; PULSE 99; RESP 24; TEMP 39.4; O2SAT 100
[2019-12-08] MEDS: Ipratropium/Albuterol Sulfate 3 ML AMPUL.NEB INHALATION (23:04)
[2019-12-08 23:06] VITALS: O2SAT 100
[2019-12-08 23:14] LABS: ALB/GLOB Ratio 0.7 RATIO (0.9-2.4); AST(SGOT) 12 U/L (15-37); Alanine Aminotransfer ALT/SGPT 19 U/L (13-56); Albumin, Serum 3.2 g/dL (3.2-5.0); Alkaline Phosphatase 99 U/L (45-117); Anion Gap 7 (5-15); BUN 33 mg/dL (7-18); BUN/Creat Ratio 15.4 RATIO (10-20); Calcium,Total 8.9 mg/dL (8.5-10.1); Chloride 110 mmol/L (98-107); Creatinine, Serum 2.14 mg/dL (0.55-1.02); EST Glomerular Filtration Rate 25 mL/min (>60); Est Glom Filt Rate - Afr Amer 30 mL/min (>60); Estimated Creatinine Clearance 20.73 ml/min; Globulin 4.3 g/dL (2.2-4.2); Glucose 134 mg/dL (74-106); Potassium 5.2 mmol/L (3.5-5.1); Protein, Total 7.5 g/dL (6.4-8.2); Sodium Level 142 mmol/L (136-145)
[2019-12-08 23:16] LABS: Lactic Acid 1.8 mmol/L (0.4-1.9)
[2019-12-08] MEDS: 0.9% Normal Saline 1,000 ML 999 ML IV (23:27)
[2019-12-08] MEDS: Ibuprofen 400 MG Tablet 800 MG PO (23:27)
[2019-12-09] VITALS (56 sets, daily range): BP systolic 73–129; BP diastolic 42–104; PULSE 76–104; RESP 16–35; TEMP 36.9–37.8; O2SAT 91–100; BMI 45.8; BMI 45.9
[2019-12-09 00:37] LABS: Bacteria 0 SEEN /hpf (None Seen); Mucous, Urine 0 SEEN /hpf (<or=2+); Red Blood Cells-Urine 0 SEEN /hpf (0-5); White Blood Cells 0 SEEN /hpf (0-5)
[2019-12-09 00:44] LABS: Color, Urine Yellow (Yellow); Glucose, Dipstick Normal (Normal); Ketone-Dipstick Negative (Negative); Leukocyte Esterase-Dipstick 100 /ul (Negative); Nitrite-Dipstick Negative (Negative); Occult Blood-Urine Negative /ul (Negative); Protein-Dipstick Negative (Negative); Urine Bilirubin Dipstick Negative (Negative); Urine Clarity Clear (Clear); Urine Urobilinogen Normal (Normal)
[2019-12-09 00:46] LABS: Hyaline Cast 0-5 SEEN /lpf (0-5); Squamous Epithelial Cells - UA 0-5 SEEN /hpf (5-10)
[2019-12-09] MEDS: 0.9% Normal Saline 1,000 ML 1000 ML IV (02:00)
--- NOTE | 2019-12-09 02:25 | HP.PCM_ITS ---
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 (3) Lung nodule Status: Chronic (4) Abnormal chest CT Status: Chronic (5) Shortness of breath Status: Acute (6) Cavitary lesion of lung Status: Chronic (7) Obesity Status: Chronic (8) Chronic respiratory failure Status: Chronic Qualifiers: Respiratory failure complication: hypoxia Qualified Code(s): J96.11 - Chronic respiratory failure with hypoxia (9) Asthma Status: Acute Qualifiers: Asthma severity: moderate Asthma persistence: persistent Asthma complication type: uncomplicated Qualified Code(s): J45.40 - Moderate persistent asthma, uncomplicated (10) Benign essential HTN Status: Chronic (11) COLD (chronic obstructive lung disease) Status: Chronic (12) Gastroesophageal reflux disease Status: Chronic (13) Umbilical hernia Status: Chronic (14) Hx pulmonary embolism Status: Chronic (15) Morbid obesity Status: Chronic (16) Atrial tachycardia Status: Chronic (17) PVD (peripheral vascular disease) Status: Chronic (18) HTN (hypertension) Status: Chronic (19) ALEXYS (acute kidney injury) Status: Acute (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 (21) Insomnia Status: Chronic (22) Allergic rhinitis Status: Chronic Qualifiers: Allergic rhinitis trigger: unspecified Allergic rhinitis seasonality: unspecified Qualified Code(s): J30.9 - Allergic rhinitis, unspecified (23) Pulmonary embolism Status: Chronic (24) DVT (deep venous thrombosis) Status: Chronic (25) Diabetes mellitus Status: Chronic (26) Hyperlipidemia Status: Chronic (27) Venous thromboembolism (VTE) Status: Chronic (28) Obstructive sleep apnea Status: Chronic (29) Septic shock Status: Acute History of Present Illness Date of Admission: 12/09/19 Chief Complaint: fever and chills The patient is a 64 year old F with a significant history of chronic A. fib; COPD; and asthma who presents to the emergency department with 1 day history of chills and fever. She reported a home temperature of 102 Fahrenheit. Associated with her symptoms is a productive cough of thick yellow sputum. Reportedly she finished taking Levaquin, doxycycline and prednisone about 2 weeks ago. She took the above regimen of antibiotics and prednisone because of bronchitis; and MRSA and Pseudomonas in her sputum. She reported that after she did finish taking the prednisone she developed diffuse joint pain and was star lonnie on allopurinol because he also had elevated uric acid. Reportedly she developed nausea from the allopurinol. Also she reports a history of myopathy secondary to steroids. At emergency department her creatinine was elevated above her baseline. Potassium was 5.2. Chloride was 113. Blood pressure was low and she required IV fluid boluses; a central line and Levophed infusion. Past Medical History Past Medical History (Chronic Problems): Chronic Problems (Last Reviewed 12/09/19 @ 04:[address] 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) Lung nodule (Chronic) Abnormal chest CT (Chronic) Cavitary lesion of lung (Chronic) Obesity (Chronic) Chronic respiratory failure (Chronic) Benign essential HTN (Chronic) COLD (chronic obstructive lung disease) (Chronic) Gastroesophageal reflux disease (Chronic) Umbilical hernia (Chronic) Hx pulmonary embolism (Chronic) Morbid obesity (Chronic) Atrial tachycardia (Chronic) PVD (peripheral vascular disease) (Chronic) HTN (hypertension) (Chronic) Steroid myopathy (Chronic) Insomnia (Chronic) Allergic rhinitis (Chronic) Pulmonary embolism (Chronic) DVT (deep venous thrombosis) (Chronic) Diabetes mellitus (Chronic) Hyperlipidemia (Chronic) Venous thromboembolism (VTE) (Chronic) Obstructive sleep apnea (Chronic) Medical History: Medical History (Last Reviewed 12/09/19 @ 04:[address] Lul Mazariegos MD) Aspiration into airway (Inactive) T17.908A Obesity (Chronic) E66.9 Asthma (Acute) J45.909 Benign essential HTN (Chronic) I10 COLD (chronic obstructive lung disease) (Chronic) J44.9 Gastroesophageal reflux disease (Chronic) K21.9 Umbilical hernia (Chronic) K42.9 Cellulitis of right lower extremity (Inactive) L03.115 Hx pulmonary embolism (Chronic) Z86.711 Tachycardia (Inactive) R00.0 Acute bronchiolitis (Inactive) J21.9 Morbid obesity (Chronic) E66.01 Atrial tachycardia (Chronic) I47.1 PVD (peripheral vascular disease) (Chronic) I73.9 HTN (hypertension) (Chronic) I10 ALEXYS (acute kidney injury) (Acute) N17.9 Pneumonia (Inactive) J18.9 Atrial fibrillation with rapid ventricular response (Inactive) I48.91 Steroid myopathy (Chronic) G72.0, T38.0X5A Insomnia (Chronic) G47.00 Allergic rhinitis (Chronic) J30.9 Pulmonary embolism (Chronic) I26.99 DVT (deep venous thrombosis) (Chronic) I82.409 Acute respiratory failure (Inactive) J96.00 Weakness (Inactive) R53.1 Coarse tremors (Inactive) G25.2 Severe sepsis (Inactive) A41.9, R65.20 HCAP (healthcare-associated pneumonia) (Inactive) J18.9 Diabetes mellitus (Chronic) E11.9 Hyperlipidemia (Chronic) E78.5 Venous thromboembolism (VTE) (Chronic) I82.90 Obstructive sleep apnea (Chronic) G47.33 History of DVT (deep vein thrombosis) Z86.718 MRSA pneumonia J15.212 Paroxysmal atrial tachycardia I47.1 Precordial chest pain R07.2 Right foot pain M79.671 Allergies adhesive Allergy (Verified 10/19/19 10:46) Other SKIN TEARS. PAPER TAPE [place] azithromycin [From Zithromax] Allergy (Verified 10/19/19 10:46) Rash cefuroxime sodium [From Zinacef] Allergy (Verified 10/19/19 10:46) Rash clindamycin Allergy (Verified 10/19/19 10:46) Hives nitrofurantoin macrocrystalline [From Macrodantin] Allergy (Verified 10/19/19 10:46) Rash Sulfa (Sulfonamide Antibiotics) Allergy (Verified 10/19/19 10:46) Rash atenolol Adverse Reaction (Severe, Verified 10/19/19 10:46) Peripheal edema & cough metoprolol [From Toprol XL] Adverse Reaction (Severe, Verified 10/19/19 10:46) Peripheral edema & cough duloxetine [From Cymbalta] Adverse Reaction (Intermediate, Verified 10/19/19 10:46) made me feel really sick oxycodone HCl [From Percocet] Adverse Reaction (Verified 10/19/19 10:46) Vomiting STEROID Adverse Reaction (Uncoded 10/19/19 10:46) Other INDUCED MYOPATHY Home Medications: Ambulatory Orders Medication Instructions Recorded Levothyroxine [Synthroid] 25 mcg PO DAILY@0600 02/15/18 montelukast 10 mg tablet 10 mg PO QHS #30 tab 02/27/18 lisinopril 5 mg tablet 5 mg PO DAILY 07/13/18 esomeprazole magnesium 20 mg 20 mg PO DAILY 01/25/19 capsule,delayed release spironolactone 25 mg tablet 25 mg PO DAILY 01/25/19 apixaban 5 mg tablet 5 mg PO BID #60 tab 03/06/19 diltiazem HCl 180 mg 180 mg PO DAILY #30 cap 03/06/19 capsule,extended release 24 hr flecainide 50 mg tablet 50 mg PO BID #60 tab 03/06/19 albuterol sulfate 2.5 mg INHALATION Q4H PRN #180 vial 04/20/19 furosemide 20 mg tablet 20 mg PO DAILY tab 07/27/19 azelastine 137 mcg (0.1 %) nasal 2 spray INTRANASAL BID #30 ml 10/19/19 spray aerosol cholecalciferol (vitamin D3) 10 10 mcg PO DAILY 10/19/19 mcg/drop (400 unit/drop) oral drops omega-3 fatty acids 1,000 mg 1,000 mg PO DAILY 10/19/19 capsule albuterol sulfate 90 mcg/actuation 2 puff INHALATION Q4H PRN PRN #1 ea 11/16/19 aerosol inhaler Allopurinol [Zyloprim] 100 mg PO DAILY 12/09/19 Fluticasone/Salmeterol [Advair Hfa 2 puff INHALATION BID 12/09/19 230-21 Mcg Inhaler] Furosemide [Lasix] 40 mg PO BREAKFAST 12/09/19 Surgical History: Surgical History (Last Reviewed 12/09/19 @ 04:[address] 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 Lul Mazariegos MD) Mother Hypertension Diabetes Heart disease Pulmonary embolism Father Perforated ulcer Respiratory failure Sister Asthma Hypertension History Items: Asthma, Heart Disease, Hypertension Maternal Family History: Family History (Last Reviewed 12/09/19 @ 04:[address] Lul Mazariegos MD) Mother Hypertension Diabetes Heart disease Pulmonary embolism Father Perforated ulcer Respiratory failure Sister Asthma Hypertension History Items: Asthma Paternal Family History: Family History (Last Reviewed 12/09/19 @ 04:[address] Lul Mazariegos MD) Mother Hypertension Diabetes Heart disease Pulmonary embolism Father Perforated ulcer Respiratory failure Sister Asthma Hypertension History Items: No pertinent history Review of Systems Constitutional: Reports: Chills, Fever, Malaise, Weakness, Fatigue. Denies: Weight Change HEENT: Reports: Head Aches. Denies: Sinus Congestion, Sinus Drainage Cardiovascular: Denies: Chest Pain, Palpitations Respiratory: Reports: Cough, Shortness of Breath, Sputum production, Wheezing Gastrointestinal: Reports: Nausea. Denies: Abdominal Pain, Vomiting Genitourinary: Denies: Dysuria Musculoskeletal: Reports: Joint Pain, Joint Tenderness Skin: Denies: Rash, Wounds Neurological: Denies: Numbness, Tingling, Focal weakness Psychiatric: Denies: Anxiety, Depression, Homicidal Ideations, Suicidal Ideations Hematologic/ Lymphatic: Denies: Easy Bruising, Easy Bleeding VTE Information - Inpt Only VTE Present on Admission: No VTE Mechan Device Prophylaxis: None VTE Pharm Prophylaxis ordered?: No Reason prophylaxis not ordered:: Treatment Not Indicated - Eliquis for A. fib continued. Patient Problems: Active and Suspected Problems (Last Reviewed 12/09/19 @ 04:[address] Lul Mazariegos MD) COPD with acute exacerbation (Acute) Shortness of breath (Acute) Asthma (Acute) ALEXYS (acute kidney injury) (Acute) - Physical Exam Vitals/I&O's: Vital Signs Temp Pulse Resp BP Pulse Ox 99.7 F H 104 H 20 H 96/48 L 99 12/09/19 02:01 12/09/19 02:01 12/09/19 02:01 12/09/19 02:01 12/09/19 02:01 Oxygen Delivery Method Room Air Weight: 111.5 kg Body Mass Index (BMI) 44.9 Intake and Output for Last 24 Hours 12/07/19 12/08/19 12/09/19 23:59 23:59 23:59 Intake Total 1000 / 1000 Balance 1000 / 1000 General: Alert, Oriented x3, Cooperative HEENT: Atraumatic, PERRLA, EOMI, Normocephalic Neck: Supple, Trachea Midline Lungs: Rhonchi, Wheezes Cardiovascular: Normal S1, Normal S2, No murmurs, Tachycardic Abdomen: Bowel Sounds Present, Soft, Non Tender Extremities: No edema, Capillary Refill Less than 3 Seconds Skin: No rashes, No breakdown Musculoskeletal: No Tenderness to Palpation of Joints or Extremities Neurological: Cranial nerves II-XII grossly intact Psych/Mental Status: Normal Affect, Appropriate Laboratory Results 12/08/19 22:30: WBC 7.3, RBC 3.47 L, Hgb 10.3 L, Hct 34.1 L, MCV 98.3, MCH 29.7, MCHC 30.2 L, RDW Std Deviation 49.7 H, RDW Coeff of Lanre 13.8, Plt Count 361, MPV 10.0, Immature Gran % (Auto) 0.300, Neut % (Auto) 74.2 H, Lymph % (Auto) 17.0 L, [place] % (Auto) 7.0, Eos % (Auto) 1.2, Baso % (Auto) 0.3, Absolute Neuts (auto) 5.4, Absolute Lymphs (auto) 1.23, Nucleated RBC % 0 12/08/19 22:30: PT 15.3 H, INR 1.3, APTT 28.9 12/08/19 22:30: Sodium 142, Potassium 5.2 H, Chloride 110 H, Carbon Dioxide 25.0, Anion Gap 7, BUN 33 H, Creatinine 2.14 H, Estim Creat Clear Calc 20.73, Est GFR (MDRD) Af Amer 30 L, Est GFR (MDRD) Non-Af 25 L, BUN/Creatinine Ratio 15.4, Glucose 134 H, Calcium 8.9, Total Bilirubin 0.20, AST 12 L, ALT 19, Alkaline Phosphatase 99, Total Protein 7.5, Albumin 3.2, Globulin 4.3 H, Albumin/Globulin Ratio 0.7 L 12/08/19 22:30: Lactic Acid 1.8 12/08/19 23:15: COVID-19 (SUSHMA) Not Detected 12/09/19 00:30: Urine Color Yellow, Urine Clarity Clear, Urine pH 5.0, Ur Specific [place] 1.020, Urine Protein Negative, Urine Glucose (UA) Normal, Urine Ketones Negative, Urine Occult Blood Negative, Urine Nitrite Negative, Urine Bilirubin Negative, Urine Urobilinogen Normal, Ur Leukocyte Esterase 100 H, Urine RBC 0 SEEN, Urine WBC 0 SEEN, Ur Squamous Epith Cells 0-5 SEEN, Urine Bacteria 0 SEEN, Hyaline Casts 0-5 SEEN, Urine Mucus 0 SEEN Current Medications Sodium Chloride () 1,000 mls @ 1,000 mls/hr IV .Q1H ONE Stop: 12/09/19 02:51 Last Admin: 12/09/19 02:00 Dose: 1,000 mls/hr Documented by: Assessment/Plan All Active Problems (Last Reviewed 12/09/19 @ 04:[address] Lul Mazariegos MD) COPD with acute exacerbation (Acute) Septic shock (Acute) Shortness of breath (Acute) Asthma (Acute) ALEXYS (acute kidney injury) (Acute) The patient is a 64 year old F with a significant history of chronic A. fib; cavitary lung lesion; COPD; and asthma who presents to the emergency department with 1 day history of chills and fever; productive cough who was found to have hypotension; tachycardia; tachypnea and a fever of 103 Fahrenheit. Septic shock Etiology is unclear. But with a history of chronic lung changes, cannot rule out pulmonary infection. Chest x-ray showed chronic changes without any acute cardiopulmonary process. This was interpreted by radiologist. Actual chest x-ray image was reviewed by myself. Was started on vancomycin and Zosyn at the emergency department. Vancomycin and Zosyn continued. Received normal saline bolus per septic shock protocol and was started on Levophed infusion at emergency department. Levophed infusion continued. Consider CT scan of chest when blood pressure is stable. We will admit patient to intensive care unit and consult compound coating machine offbearer. Strep pneumonia and Legionella urine antigen ordered. Sputum Gram stain and sputum culture ordered. Comprehensive respiratory pathogen panel ordered. Lactic acid was normal at the emergency department. Urine culture and blood culture was obtained in the emergency department; follow. Covid screen was negative. Hold home blood pressure medication and Cardizem secondary to hypotension. Hold home Lasix and spironolactone. Tylenol for fever. COPD exacerbation//asthma exacerbation Antibiotic as above. Placed on as scheduled DuoNeb and as needed albuterol inhaler. Patient reports history of steroid myopathy. Hold off steroid at this point. ALEXYS on CKD stage III Creatinine on presentation was 2.14. Her creatinine on 02/14/2018 was 1.34. Her creatinine on 11/29/2019 was 1.82. Creatinine 07/19/2019 was 1.7. Baseline creatinine likely is around 1.5-1.8. CKD likely secondary to hypertensive nephrosclerosis and diabetes mellitus. BUN is 33. BUN over creatinine is 15.4. ALEXYS likely secondary to prerenal leading to intrinsic renal from the hemodynamic changes and toxins from septic shock. Received IV bolus at emergency department and was started on Levophed. Levophed continued Because of hyperchloremia we will switch normal saline to lactated Ringer's. Avoid nephrotoxins. Lisinopril, spironolactone, Lasix held. Trend BMP Diabetes mellitus Patient with mild hyperglycemia on presentation. Review of records show that A1c on 12/07/2016 was 7.8. Trend BMP. Carbohydrate controlled diet ordered. Chronic A. fib. Patient with sinus tach on presentation Flecainide and Eliquis continued. Cardizem held secondary hypotension. DVT/PE Eliquis continued. DVT prophylaxis Patient on Eliquis for A. fib; continued. Inpatient E&M: 26291 Init Hosp L3
[2019-12-09] MEDS: Acetaminophen 500 MG Tablet 1000 MG PO (04:09)
--- NOTE | 2019-12-09 04:37 | SEPSISNOTE ---
Sepsis Note - Physical Exam/Vitals Objective: Chest X-Ray 12/08/19 22:37 IMPRESSION: Stable right upper lobe lung nodule. Chronic changes in the lung bases. No evidence for acute cardiopulmonary pathology. Electronically Signed: Archie Bowers MD at 0:22 EDT , Service support , Temp Pulse Resp BP Pulse Ox 99.3 F H 97 24 H 73/42 L 100 12/09/19 04:04 12/09/19 04:04 12/09/19 04:04 12/09/19 04:04 12/09/19 04:04 12/09/19 12/08/19 12/08/19 00:30 23:15 22:30 WBC RBC Hgb Hct MCV MCH MCHC RDW Std Deviation RDW Coeff of Lanre Plt Count MPV Immature Gran % (Auto) Neut % (Auto) Lymph % (Auto) [place] % (Auto) Eos % (Auto) Baso % (Auto) Absolute Neuts (auto) Absolute Lymphs (auto) Nucleated RBC % PT INR APTT Sodium Potassium Chloride Carbon Dioxide Anion Gap BUN Creatinine Estim Creat Clear Calc Est GFR (MDRD) Af Amer Est GFR (MDRD) Non-Af BUN/Creatinine Ratio Glucose Lactic Acid 1.8 Calcium Total Bilirubin AST ALT Alkaline Phosphatase Total Protein Albumin Globulin Albumin/Globulin Ratio Urine Color Yellow Urine Clarity Clear Urine pH 5.0 Ur Specific [place] 1.020 Urine Protein Negative Urine Glucose (UA) Normal Urine Ketones Negative Urine Occult Blood Negative Urine Nitrite Negative Urine Bilirubin Negative Urine Urobilinogen Normal Ur Leukocyte Esterase 100 H Urine RBC 0 SEEN Urine WBC 0 SEEN Ur Squamous Epith Cells 0-5 SEEN Urine Bacteria 0 SEEN Hyaline Casts 0-5 SEEN Urine Mucus 0 SEEN COVID-19 (SUSHMA) Not Detected 12/08/19 12/08/19 12/08/19 22:30 22:30 22:30 WBC 7.3 RBC 3.47 L Hgb 10.3 L Hct 34.1 L MCV 98.3 MCH 29.7 MCHC 30.2 L RDW Std Deviation 49.7 H RDW Coeff of Lanre 13.8 Plt Count 361 MPV 10.0 Immature Gran % (Auto) 0.300 Neut % (Auto) 74.2 H Lymph % (Auto) 17.0 L [place] % (Auto) 7.0 Eos % (Auto) 1.2 Baso % (Auto) 0.3 Absolute Neuts (auto) 5.4 Absolute Lymphs (auto) 1.23 Nucleated RBC % 0 PT 15.3 H INR 1.3 APTT 28.9 Sodium 142 Potassium 5.2 H Chloride 110 H Carbon Dioxide 25.0 Anion Gap 7 BUN 33 H Creatinine 2.14 H Estim Creat Clear Calc 20.73 Est GFR (MDRD) Af Amer 30 L Est GFR (MDRD) Non-Af 25 L BUN/Creatinine Ratio 15.4 Glucose 134 H Lactic Acid Calcium 8.9 Total Bilirubin 0.20 AST 12 L ALT 19 Alkaline Phosphatase 99 Total Protein 7.5 Albumin 3.2 Globulin 4.3 H Albumin/Globulin Ratio 0.7 L Urine Color Urine Clarity Urine pH Ur Specific [place] Urine Protein Urine Glucose (UA) Urine Ketones Urine Occult Blood Urine Nitrite Urine Bilirubin Urine Urobilinogen Ur Leukocyte Esterase Urine RBC Urine WBC Ur Squamous Epith Cells Urine Bacteria Hyaline Casts Urine Mucus COVID-19 (SUSHMA) - Attestation Sepsis Attestation: Sepsis re-evaluation was performed
--- NOTE | 2019-12-09 05:06 | RAD_ITS ---
STUDY: X-RAY CHEST REASON FOR EXAM: Female, 64 years old. LINE PLACEMENT TECHNIQUE: Single AP portable view of the chest. COMPARISON: 12/08/2019. FINDINGS: There is a right internal jugular central venous catheter with its tip overlying the distal superior cava. There is no demonstrated pneumothorax. There is a nodule overlying the peripheral right midlung field which is less clearly seen on current exam than the previous study, due to differences in positioning of overlapping ribs. This finding has previously been shown to be stable. There is mild chronic atelectasis or fibrosis in the lower lung manzano. There are no confluent pulmonary infiltrates. There is no demonstrated pleural abnormality. Normal size heart. Normal mediastinum and tami. Normal visualized aortic arch and descending thoracic aorta. There are no demonstrated acute fractures or destructive bone lesions. There is a right shoulder prosthesis. There is no demonstrated abnormality of the visualized soft tissue structures of the upper abdomen. RAD/CXR for Line Placement IMPRESSION: Central line is in adequate position. Chronic changes in the lower lung manzano. No evidence for acute cardiopulmonary pathology. Electronically Signed: Archie Bowers MD at 7:03 EDT , Service support ,
[2019-12-09] MEDS: 0.9% Normal Saline 1,000 ML 999 ML IV (05:45)
--- NOTE | 2019-12-09 05:46 | PCM.CON.CC ---
Reason for Consult Date of Consultation: 12/09/19 Reason for Consultation: Severe sepsis History of Present Illness: The patient is a 64-year-old female, well-known to me from the pulmonary medicine clinic, who presented to the emergency department on December 07 with complaints of a fever and productive cough along with some mild shortness of breath. The patient has a history of moderate persistent asthma, steroid-induced myopathy, history of DVT/PE along with history of organizing pneumonia. Her maintenance inhaler regimen includes Advair and as needed albuterol. She was last treated for an exacerbation at the beginning of November with a 10-day course of Levaquin and doxycycline. The patient was noted to have a positive sputum culture for both Pseudomonas and MRSA. The patient reported that she felt quite well from a respiratory perspective following completion of the aforementioned treatment. However, over the last several days, the patient is once again began to feel ill with subjective fevers and cough which has now become productive of yellow sputum. She denies any increase in her rescue inhaler utilization. On presentation to the emergency department, the patient was noted to be febrile with a temperature of 103 ?F. She was hemodynamically stable and maintaining appropriate oxygen saturations on room air. Laboratory evaluation revealed a normal white blood cell count. Chemistry profile revealed a potassium of 5.2 and creatinine of 2.14. Coronavirus PCR was negative. Urine analysis was unremarkable. The patient was provided with supplemental IV fluid hydration. During her emergency department stay, she became hemodynamically unstable. A central venous catheter was subsequently placed with plans to initiate vasopressor support. Past Medical History Past Medical History (Chronic Problems): Chronic Problems (Last Reviewed 12/09/19 @ 04:[address] 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) Lung nodule (Chronic) Abnormal chest CT (Chronic) Cavitary lesion of lung (Chronic) Obesity (Chronic) Chronic respiratory failure (Chronic) Benign essential HTN (Chronic) COLD (chronic obstructive lung disease) (Chronic) Gastroesophageal reflux disease (Chronic) Umbilical hernia (Chronic) Hx pulmonary embolism (Chronic) Morbid obesity (Chronic) Atrial tachycardia (Chronic) PVD (peripheral vascular disease) (Chronic) HTN (hypertension) (Chronic) Steroid myopathy (Chronic) Insomnia (Chronic) Allergic rhinitis (Chronic) Pulmonary embolism (Chronic) DVT (deep venous thrombosis) (Chronic) Diabetes mellitus (Chronic) Hyperlipidemia (Chronic) Venous thromboembolism (VTE) (Chronic) Obstructive sleep apnea (Chronic) Medical History: Medical History (Last Reviewed 12/09/19 @ 04:[address] Lul Mazariegos MD) Aspiration into airway (Inactive) T17.908A Obesity (Chronic) E66.9 Asthma (Acute) J45.909 Benign essential HTN (Chronic) I10 COLD (chronic obstructive lung disease) (Chronic) J44.9 Gastroesophageal reflux disease (Chronic) K21.9 Umbilical hernia (Chronic) K42.9 Cellulitis of right lower extremity (Inactive) L03.115 Hx pulmonary embolism (Chronic) Z86.711 Tachycardia (Inactive) R00.0 Acute bronchiolitis (Inactive) J21.9 Morbid obesity (Chronic) E66.01 Atrial tachycardia (Chronic) I47.1 PVD (peripheral vascular disease) (Chronic) I73.9 HTN (hypertension) (Chronic) I10 ALEXYS (acute kidney injury) (Acute) N17.9 Pneumonia (Inactive) J18.9 Atrial fibrillation with rapid ventricular response (Inactive) I48.91 Steroid myopathy (Chronic) G72.0, T38.0X5A Insomnia (Chronic) G47.00 Allergic rhinitis (Chronic) J30.9 Pulmonary embolism (Chronic) I26.99 DVT (deep venous thrombosis) (Chronic) I82.409 Acute respiratory failure (Inactive) J96.00 Weakness (Inactive) R53.1 Coarse tremors (Inactive) G25.2 Severe sepsis (Inactive) A41.9, R65.20 HCAP (healthcare-associated pneumonia) (Inactive) J18.9 Diabetes mellitus (Chronic) E11.9 Hyperlipidemia (Chronic) E78.5 Venous thromboembolism (VTE) (Chronic) I82.90 Obstructive sleep apnea (Chronic) G47.33 History of DVT (deep vein thrombosis) Z86.718 MRSA pneumonia J15.212 Paroxysmal atrial tachycardia I47.1 Precordial chest pain R07.2 Right foot pain M79.671 Allergies adhesive Allergy (Verified 10/19/19 10:46) Other SKIN TEARS. PAPER TAPE OK azithromycin [From Zithromax] Allergy (Verified 10/19/19 10:46) Rash cefuroxime sodium [From Zinacef] Allergy (Verified 10/19/19 10:46) Rash clindamycin Allergy (Verified 10/19/19 10:46) Hives nitrofurantoin macrocrystalline [From Macrodantin] Allergy (Verified 10/19/19 10:46) Rash Sulfa (Sulfonamide Antibiotics) Allergy (Verified 10/19/19 10:46) Rash atenolol Adverse Reaction (Severe, Verified 10/19/19 10:46) Peripheal edema & cough metoprolol [From Toprol XL] Adverse Reaction (Severe, Verified 10/19/19 10:46) Peripheral edema & cough duloxetine [From Cymbalta] Adverse Reaction (Intermediate, Verified 10/19/19 10:46) made me feel really sick oxycodone HCl [From Percocet] Adverse Reaction (Verified 10/19/19 10:46) Vomiting STEROID Adverse Reaction (Uncoded 10/19/19 10:46) Other INDUCED MYOPATHY Home Medications: Ambulatory Orders Medication Instructions Recorded Levothyroxine [Synthroid] 25 mcg PO DAILY@0600 02/15/18 montelukast 10 mg tablet 10 mg PO QHS #30 tab 02/27/18 lisinopril 5 mg tablet 5 mg PO DAILY 07/13/18 esomeprazole magnesium 20 mg 20 mg PO DAILY 01/25/19 capsule,delayed release spironolactone 25 mg tablet 25 mg PO DAILY 01/25/19 apixaban 5 mg tablet 5 mg PO BID #60 tab 03/06/19 diltiazem HCl 180 mg 180 mg PO DAILY #30 cap 03/06/19 capsule,extended release 24 hr flecainide 50 mg tablet 50 mg PO BID #60 tab 03/06/19 albuterol sulfate 2.5 mg INHALATION Q4H PRN #180 vial 04/20/19 furosemide 20 mg tablet 20 mg PO DAILY tab 07/27/19 azelastine 137 mcg (0.1 %) nasal 2 spray INTRANASAL BID #30 ml 10/19/19 spray aerosol cholecalciferol (vitamin D3) 10 10 mcg PO DAILY 10/19/19 mcg/drop (400 unit/drop) oral drops omega-3 fatty acids 1,000 mg 1,000 mg PO DAILY 10/19/19 capsule albuterol sulfate 90 mcg/actuation 2 puff INHALATION Q4H PRN PRN #1 ea 11/16/19 aerosol inhaler Allopurinol [Zyloprim] 100 mg PO DAILY 10/25/20 Fluticasone/Salmeterol [Advair Hfa 2 puff INHALATION BID 12/09/19 230-21 Mcg Inhaler] Furosemide [Lasix] 40 mg PO BREAKFAST 12/09/19 Surgical History: Surgical History (Last Reviewed 12/09/19 @ 04:[address] Lul Mazariegos MD) History of cardioversion Onset Date: ~12/2016 Z98.890 @ [facility] 12/2016 H/O section Z98.891 H/O foot surgery Z98.890 H/O hernia repair Z98.890, Z87.19 H/O shoulder surgery Z98.890 right H/O: hysterectomy Z98.890, Z90.710 History of left heart catheterization Z98.890 Surgical History: appendectomy, herniorrhaphy, hysterectomy Psychiatric History: No pertinent psych hx MEDICAL ANTHROPOLOGY DIRECTOR History: No pertinent MEDICAL ANTHROPOLOGY DIRECTOR history Smoking Status: Former smoker - *Family History Sibling Family History: Family History (Last Reviewed 12/09/19 @ 04:[address] Lul Mazariegos MD) Mother Hypertension Diabetes Heart disease Pulmonary embolism Father Perforated ulcer Respiratory failure Sister Asthma Hypertension History Items: Asthma, Heart Disease, Hypertension Maternal Family History: Family History (Last Reviewed 12/09/19 @ 04:[address] Lul Mazariegos MD) Mother Hypertension Diabetes Heart disease Pulmonary embolism Father Perforated ulcer Respiratory failure Sister Asthma Hypertension History Items: Asthma Paternal Family History: Family History (Last Reviewed 12/09/19 @ 04:[address] Lul Mazariegos MD) Mother Hypertension Diabetes Heart disease Pulmonary embolism Father Perforated ulcer Respiratory failure Sister Asthma Hypertension History Items: No pertinent history Review of Systems Constitutional: Reports: Chills, Fever Eyes: Denies: Blurred vision, Double vision HEENT: Denies: Head Aches, Sinus Congestion, Sinus Drainage Cardiovascular: Denies: Chest Pain, Palpitations Respiratory: Reports: Cough, Wheezing. Denies: Shortness of Breath Gastrointestinal: Denies: Abdominal Pain, Nausea, Vomiting Genitourinary: Denies: Dysuria Musculoskeletal: Denies: Joint Pain, Joint Tenderness Skin: Denies: Rash, Wounds Neurological: Denies: Numbness, Tingling, Focal weakness Psychiatric: Reports: Anxiety Hematologic/ Lymphatic: Reports: Anemia, Hx of blood clot, Hx of blood transfusion Patient Problems: Active and Suspected Problems (Last Reviewed 12/09/19 @ 04:[address] Lul Mazariegos MD) COPD with acute exacerbation (Acute) Septic shock (Acute) Septic shock (Acute) Shortness of breath (Acute) Asthma (Acute) ALEXYS (acute kidney injury) (Acute) Objective: The patient's most recent lab work, culture data and imaging studies have all been personally reviewed. Coronavirus PCR was negative. Blood, urine and sputum cultures are pending. Respiratory viral panel is pending. - Physical Exam Vitals/I&O's: Vital Signs Temp Pulse Resp BP Pulse Ox 99.5 F H 97 20 H 80/48 L 99 12/09/19 05:07 12/09/19 05:07 12/09/19 05:07 12/09/19 05:07 12/09/19 05:07 Oxygen Delivery Method Room Air Weight: 245 lb 13.047 oz Body Mass Index (BMI) 44.9 Intake and Output for Last 24 Hours 12/07/19 12/08/19 12/09/19 23:59 23:59 23:59 Intake Total 2099 Balance 2099 General: Alert, Cooperative, No apparent distress HEENT: Atraumatic, Normocephalic Oral: No Gingival or Mucosal Lesions/ Ulcerations Neck: Supple, No Nodes, Trachea Midline Lungs: No wheeze, No rales, Diminished, - - No accessory muscle use. Speaking in complete sentences. Cardiovascular: Regular rate, Regular Rhythm Abdomen: Bowel Sounds Present, Soft, Non Tender, Obese Extremities: No clubbing, No cyanosis, No edema Skin: No breakdown Musculoskeletal: No Tenderness to Palpation of Joints or Extremities Lymphatic: No Cervical, Supraclavicular, or Inguinal Adenopathy Neurological: Neuro grossly intact Psych/Mental Status: Flat Affect Labs (Last 48 Hours) 12/08/19 12/08/19 12/08/19 22:30 22:30 22:30 WBC 7.3 RBC 3.47 L Hgb 10.3 L Hct 34.1 L MCV 98.3 MCH 29.7 MCHC 30.2 L RDW Std Deviation 49.7 H RDW Coeff of Lanre 13.8 Plt Count 361 MPV 10.0 Immature Gran % (Auto) 0.300 Neut % (Auto) 74.2 H Lymph % (Auto) 17.0 L Kingsbury % (Auto) 7.0 Eos % (Auto) 1.2 Baso % (Auto) 0.3 Absolute Neuts (auto) 5.4 Absolute Lymphs (auto) 1.23 Nucleated RBC % 0 PT 15.3 H INR 1.3 APTT 28.9 Sodium 142 Potassium 5.2 H Chloride 110 H Carbon Dioxide 25.0 Anion Gap 7 BUN 33 H Creatinine 2.14 H Estim Creat Clear Calc 20.73 Est GFR (MDRD) Af Amer 30 L Est GFR (MDRD) Non-Af 25 L BUN/Creatinine Ratio 15.4 Glucose 134 H Lactic Acid Calcium 8.9 Total Bilirubin 0.20 AST 12 L ALT 19 Alkaline Phosphatase 99 Total Protein 7.5 Albumin 3.2 Globulin 4.3 H Albumin/Globulin Ratio 0.7 L Urine Color Urine Clarity Urine pH Ur Specific Milano Urine Protein Urine Glucose (UA) Urine Ketones Urine Occult Blood Urine Nitrite Urine Bilirubin Urine Urobilinogen Ur Leukocyte Esterase Urine RBC Urine WBC Ur Squamous Epith Cells Urine Bacteria Hyaline Casts Urine Mucus COVID-19 (SUSHMA) 12/08/19 12/08/19 12/09/19 22:30 23:15 00:30 WBC RBC Hgb Hct MCV MCH MCHC RDW Std Deviation RDW Coeff of Lanre Plt Count MPV Immature Gran % (Auto) Neut % (Auto) Lymph % (Auto) Kings[place] % (Auto) Eos % (Auto) Baso % (Auto) Absolute Neuts (auto) Absolute Lymphs (auto) Nucleated RBC % PT INR APTT Sodium Potassium Chloride Carbon Dioxide Anion Gap BUN Creatinine Estim Creat Clear Calc Est GFR (MDRD) Af Amer Est GFR (MDRD) Non-Af BUN/Creatinine Ratio Glucose Lactic Acid 1.8 Calcium Total Bilirubin AST ALT Alkaline Phosphatase Total Protein Albumin Globulin Albumin/Globulin Ratio Urine Color Yellow Urine Clarity Clear Urine pH 5.0 Ur Specific Milano 1.020 Urine Protein Negative Urine Glucose (UA) Normal Urine Ketones Negative Urine Occult Blood Negative Urine Nitrite Negative Urine Bilirubin Negative Urine Urobilinogen Normal Ur Leukocyte Esterase 100 H Urine RBC 0 SEEN Urine WBC 0 SEEN Ur Squamous Epith Cells 0-5 SEEN Urine Bacteria 0 SEEN Hyaline Casts 0-5 SEEN Urine Mucus 0 SEEN COVID-19 (SUSHMA) Not Detected Clinical Impression(s) from Imaging Studies Chest X-Ray 12/08/19 22:37 IMPRESSION: Stable right upper lobe lung nodule. Chronic changes in the lung bases. No evidence for acute cardiopulmonary pathology. Electronically Signed: Archie Bowers MD at 0:22 EDT , Service support , Current Medications Acetaminophen (Acetaminophen 325 Mg Tablet) 650 mg PO Q6H PRN PRN PRN Reason: Pain Score 1-10/Temp > 100.7 F Albuterol Sulfate (Albuterol 2.5 Mg/3 Ml Vial.Neb.) 2.5 mg INHALATION Q2H PRN PRN PRN Reason: sob/wheezing Albuterol/Ipratropium (Ipratropium/Albuterol Sulfate 3 Ml Ampul.Neb) 3 ml INHALATION Q4HWA.RT MIHAI Allopurinol (Allopurinol 100 Mg Tablet) 100 mg PO DAILY MIHAI Apixaban (Apixaban 5 Mg Tablet) 5 mg PO BID MIHAI Azelastine HCl (Azelastine Hcl Nasal.Sry) 2 spray NASAL BID MIHAI Guaifenesin (Guaifenesin 1,200 Mg Tablet) 1,200 mg PO BID MIHAI Sodium Chloride () 250 mls @ 15 mls/hr IV .[id number] PRN PRN Reason: Saline Flush Sodium Chloride () 250 mls @ 15 mls/hr IV .[id number] PRN PRN Reason: Additional IVPB Infusion Lactated Ringer's () 1,000 mls @ 100 mls/hr IV .Q10H MIHAI Vancomycin IV Pharmacy to Dose (1 ea/ Sodium Chloride) 500 mls @ 250 mls/hr IV X1 PRN; Protocol PRN Reason: Rx to Dose Piperacillin Sod/Tazobactam (Sod 3.375 gm/ Sodium Chloride) 50 mls @ 12.5 mls/hr IV Q12 MIHAI Norepinephrine Bitartrate 8 mg (/ Sodium Chloride) 250 mls @ 9.375 mls/hr CONT INF .[id number] MIHAI; Protocol Levothyroxine Sodium (Levothyroxine 25 Mcg Tablet) 25 mcg PO DAILY@0600 MIHAI Melatonin (Melatonin 3 Mg Tablet) 3 mg PO QHS PRN PRN PRN Reason: INSOMNIA Montelukast Sodium (Montelukast 10 Mg Tablet) 10 mg PO QHS MIHAI Non-Formulary Medication (Esomeprazole Magnesium) 20 mg PO DAILY MIHAI Non-Formulary Medication (Flecainide Acetate) 50 mg PO BID [facility] Non-Formulary Medication (Fluticasone/Salmeterol) 2 puff INHALATION BID [facility] Non-Formulary Medication (Elmer-3 Fatty Acids [Fish Oil Concentrate]) 1,000 mg PO DAILY MIHAI Ondansetron HCl (Ondansetron 4 Mg/2 Ml Vial) 4 mg IV Q8H PRN PRN PRN Reason: NAUSEA/VOMITING Senna/Docusate Sodium (Senna/Docusate Sodium 1 Tablet) 2 tablet PO BID PRN PRN Reason: Constipation Sodium Chloride (0.9% Saline Lock 10 Ml Syringe) 10 - 40 ml IV UD PRN PRN Reason: SALINE FLUSH Assessment/Plan Active and Suspected Problems (Last Reviewed 12/09/19 @ 04:[address] Lul Mazariegos MD) COPD with acute exacerbation (Acute) Septic shock (Acute) Septic shock (Acute) Shortness of breath (Acute) Asthma (Acute) ALEXYS (acute kidney injury) (Acute) RECOMMENDATIONS: 1. Continue Levophed to maintain a mean arterial pressure at or above 65 mmHg. 2. Continue scheduled bronchodilators and twice daily budesonide. 3. Obtain sputum for culture. 4. Continue broad-spectrum antimicrobials. Obtain infectious diseases consultation. 5. Stop Eliquis and transition patient to continuous heparin infusion for now. 6. Monitor H&H daily and transfuse if hemoglobin drops below 7 g/dL. 7. Start PPI twice daily. IMPRESSIONS: 1. Septic shock Clinical concern for underlying tracheobronchitis versus evolving community-acquired pneumonia. The patient does have underlying asthma, but carries a history of steroid induced myopathy. Therefore, she will be continued on bronchodilators and budesonide. The patient was recently treated at the beginning of November with antimicrobials for an underlying respiratory infection with sputum culture that was positive for both MRSA and Pseudomonas. Therefore, the patient will be continued on empiric broad-spectrum antimicrobials. Will obtain infectious diseases consultation. The patient has been adequately volume resuscitated at this time. Her underlying hypotension may be secondary to underlying infection and concurrent use of antihypertensives and diuretics in her home environment. Plan hold antihypertensives and diuretics. Levophed will be continued to maintain a mean arterial pressure at or above 65 mmHg. 2. Anemia The patient does have a history of anemia and is currently anticoagulated on Eliquis due to a history of paroxysmal atrial fibrillation. Given that her hemoglobin was noted to be 7.9 g/dL this morning, I would recommend that we hold her Eliquis and transition her to a continuous heparin infusion for now. She will be started on twice daily PPI therapy. Type and screen will be sent. Plan to monitor H&H daily and transfuse if hemoglobin drops below 7 g/dL. 3. Acute kidney injury Likely prerenal in etiology. Creatinine is improving with volume expansion. Continue to hold antihypertensives and diuretics. 4. History of moderate persistent asthma and steroid induced myopathy/history of organizing pneumonia The patient is currently maintaining appropriate oxygen saturations on room air but did have a high-grade fever and purulent sputum production. Therefore, we will continue broad-spectrum antimicrobials. Will obtain CT chest for further evaluation. Avoid systemic steroids, if possible. 5. History of lung nodules/GERD/paroxysmal atrial fibrillation/history of DVT/PE/anxiety/hypothyroidism/heart failure with preserved ejection fraction Complicates care, management, recovery and prognosis. Continue to hold home antihypertensives. Given anemia, will transition from Eliquis to continuous heparin infusion. Check TSH level. TIME: 38 minutes of critical care time, independent of procedures, was spent addressing the patient's septic shock, anemia, acute kidney injury, asthma, review of all data and collaboration with the care team. [phone]) [phone] [id number] Critical care first hour
[2019-12-09] MEDS: Ipratropium/Albuterol Sulfate 3 ML AMPUL.NEB INHALATION ×3 (06:30→19:01)
[2019-12-09] MEDS: Lactated Ringers 1,000 ML 100 ML IV (07:01)
[2019-12-09 07:02] LABS: Absolute Lymphocyte Count 0.56 X10^3/uL (0.83-4.51); Absolute Neutrophil Count 6.1 X10^3/uL (2.0-7.7); Basophil# 0.02 X10^3/uL; Basophil% 0.3 % (0-1); Eosinophil# 0.14 X10^3/uL; Eosinophils% 1.9 % (0-5); Hematocrit 26.9 % (37-47); Hemoglobin 7.9 g/dL (12.0-15.0); Lymphocyte # 0.56 X10^3/ul (4.0); Lymphocyte % 7.5 % (19-41); Mean Corp Hgb Conc 29.4 g/dL (32-36); Mean Corpuscular Hgb 28.7 pg (27.0-32.0); Mean Corpuscular Volume 97.8 fL (81-99); Mean Platelet Vol. 9.7 fl (6.2-12.0); Monocyte# 0.66 X10^3/uL; Monocyte% 8.8 % (0-10); NRBC Flagged by Analyzer 0 % (0-5); Neutrophil # 6.11 X10^3/uL (2.7-7.7); Neutrophil % 81.2 % (47-70); POSITIVE DIFFERENTIAL YES; POSITIVE MORPHOLOGY YES; Platelet Count 249 K/mm3 (150-450); RBC Distribution Width SD 49.8 fl (35.1-43.9); Red Blood Count 2.75 M/mm3 (4.2-5.4); White Blood Count 7.5 K/mm3 (4.4-11.0)
[2019-12-09 07:11] LABS: Anion Gap 7 (5-15); BUN 30 mg/dL (7-18); BUN/Creat Ratio 16.2 RATIO (10-20); Chloride 119 mmol/L (98-107); Creatinine, Serum 1.85 mg/dL (0.55-1.02); EST Glomerular Filtration Rate 29 mL/min (>60); Est Glom Filt Rate - Afr Amer 35 mL/min (>60); Estimated Creatinine Clearance 22.88 ml/min; Glucose 118 mg/dL (74-106); Potassium 4.2 mmol/L (3.5-5.1); Sodium Level 145 mmol/L (136-145)
[2019-12-09 08:35] LABS: M R Staph aureus DNA By PCR POSITIVE (Negative); Probe Check PASS
[2019-12-09 09:06] LABS: Differential Indicated SCAN CRITERIA MET
[2019-12-09 09:07] LABS: Differential Comment SCANNED
[2019-12-09] MEDS: guaiFENesin 1,200 MG Tablet 1200 MG PO ×2 (09:12→22:01)
[2019-12-09] MEDS: Flecainide 100 MG Tablet 50 MG PO ×2 (09:12→21:29)
[2019-12-09] MEDS: Pantoprazole Sodium 20 MG Tablet PO (09:12)
[2019-12-09] MEDS: APIXABAN 5 MG TABLET PO (09:12)
[2019-12-09] MEDS: Allopurinol 100 MG Tablet PO (09:12)
[2019-12-09] MEDS: Levothyroxine 25 MCG TABLET PO (09:13)
[2019-12-09] MEDS: Azelastine HCl NASAL.SRY 2 SPRAY NASAL ×2 (09:15→21:32)
--- NOTE | 2019-12-09 09:17 | CCHN_ITS ---
Hospitalist Note The patient is a 64 year old F with a significant history of chronic A. fib, organizing pneumonia Pseudomonas and MRSA in the past; COPD; and asthma who presents to the emergency department with 1 day history of chills and fever; productive cough who was found to have hypotension; tachycardia; tachypnea and a fever of 103 Fahrenheit. Patient was admitted in ICU with septic shock protocol, IV Levophed, right IJ triple-lumen catheter. Overall patient feels better in regards to shortness of breath. No chest pain. Currently 96% on room air. 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 H&P, pulmonary consult reviewed. 1. Septic shock: Chest CT scan was done which shows dense right lower lobe pneumonia. 0.2 noncalcified right upper lobe nodule and follow-up CT recommended. On Levophed, broad-spectrum antibiotic ID consult. Patient has history of both MRSA and Pseudomonas in the past. Infectious work-up with sputum culture. 2. Acute kidney injury, likely prerenal etiology/ATN septic shock: Continue MAP more than 65. 3. Moderate persistent asthma, steroid-induced myopathy and history of pneumonia, history of lung nodule: Patient follows our pulmonary clinic. On bronchodilator, good insight intervention twice daily, 4. Acute anemia with history of chronic anemia: H&H dropped from 10.3-7.9. Hold Eliquis. Patient has history of paroxysmal A. fib, VTE and peripheral vascular disease. 5. Diabetes mellitus type 2, GERD, hypothyroidism, anxiety, chronic heart failure with preserved EF: Multiple comorbidities complicates the present care and expect difficult and delay recovery and Lasix test echo in July 2019 reported as EF 65% with negative for ischemia by EKG nuclear criteria. Clinical Impression(s) from Imaging Studies Chest X-Ray 12/08/19 22:37 IMPRESSION: Stable right upper lobe lung nodule. Chronic changes in the lung bases. No evidence for acute cardiopulmonary pathology. Chest X-Ray 12/09/19 05:06 IMPRESSION: Central line is in adequate position. Chronic changes in the lower lung manzano. No evidence for acute cardiopulmonary pathology. Chest CT 12/09/19 09:24 IMPRESSION: 1. Dense right lower lobe pneumonia. Follow-up CT is recommended after resolution of symptoms to exclude mass, namely bronchogenic carcinoma 2. 4 mm noncalcified right upper lobe nodule and follow-up CT is recommended in 12 months document stability.
--- NOTE | 2019-12-09 09:24 | CT_ITS ---
STUDY: CT CHEST WITHOUT CONTRAST REASON FOR EXAM: Female, 64 years old. SOB/SEPSIS/COPD/MRSA RADIATION DOSAGE (If Supplied By Facility): CTDIvol = ( 20.07 ) mGy, DLP = ( 747.34 ) mGycm TECHNIQUE: Transaxial imaging was performed without the administration of intravenous contrast material. Individualized dose optimization techniques were used for this CT. COMPARISON: Chest x-ray earlier today, chest CT 12/09/2017 FINDINGS: Dense alveolar density in the lower right lung consistent with right lower lobe pneumonia. 4 mm noncalcified nodule right upper lobe the lungs on image 39 and follow-up CT the chest is recommended in 12 months document stability. There is no change in the 6 mm noncalcified nodule in the medial right upper lobe the lungs on image 53 consistent with a noncalcified granuloma or scar.. Also no change in the 6 mm noncalcified nodule in the anterior left upper lobe the lungs on image 29 consistent with a noncalcified granuloma or scar. Some left lower lobe atelectasis and scarring. There is no demonstrated pleural abnormality. Normal heart and pericardium. There are calcifications of the coronary arteries. Normal mediastinum. Normal hilar regions. Normal unenhanced pulmonary arteries. Normal aorta arch and descending thoracic aorta. Normal osseous structures. There is no demonstrated abnormality of the visualized upper abdomen. CT/Chest without Contrast IMPRESSION: 1. Dense right lower lobe pneumonia. Follow-up CT is recommended after resolution of symptoms to exclude mass, namely bronchogenic carcinoma 2. 4 mm noncalcified right upper lobe nodule and follow-up CT is recommended in 12 months document stability. Electronically Signed: Johnny Mo MD at 10:49 EDT Tel , Service support ,
[2019-12-09 10:35] LABS: Lactic Acid 1.6 mmol/L (0.4-1.9)
[2019-12-09 10:41] LABS: Thyroid Stim Hormone (TSH) 0.76 uIU/mL (0.358-3.74)
--- NOTE | 2019-12-09 11:06 | PCM.RX.CS ---
Consult Pharmacy has been consulted to manage selected antiobiotic: Vancomycin Type of Consult: New start Suspected Infection: Sepsis Prior Doses of Antibiotics Received/Current Regimen: Received 2gm loading dose 12.09.19 @0314. Labs: Sodium 145 mmol/L (136-145) 12/09/19 06:30 Potassium 4.2 mmol/L (3.5-5.1) 12/09/19 06:30 Chloride 119 mmol/L (98-107) H 12/09/19 06:30 Carbon Dioxide 19.0 mmol/L (21.0-32.0) L 12/09/19 06:30 Anion Gap 7 (5-15) 12/09/19 06:30 BUN 30 mg/dL (7-18) H 12/09/19 06:30 Creatinine 1.85 mg/dL (0.55-1.02) H 12/09/19 06:30 Est GFR (MDRD) Af Amer 35 mL/min (>60) L 12/09/19 06:30 Est GFR (MDRD) Non-Af 29 mL/min (>60) L 12/09/19 06:30 BUN/Creatinine Ratio 16.2 RATIO (-) 12/09/19 06:30 Glucose 118 mg/dL (74-106) H 12/09/19 06:30 Weight used for dosin kg Estimated Creatinine Clearance: ~35ml/min Goal Trough: 15-20 mcg/mL Pharmacy Plan for Drug Dosing: Will begin 1250mg iv q24h. Cr 1.85 with calculated CrCl ~35ml/min for adjusted body weight of 72.7kg. Trough level ordered for 12.11.19 before 3rd dose. Pharmacy Service will continue to monitor and adjust dosing as required. Follow-Up Labs: Trough Vancomycin - 12.11.19 @0230 before 0300 dose
[2019-12-09] MEDS: HEPARIN/D5w 25,000 UNITS 25,000 UNITS/250 ML IV.SOLN. 15 UNITS IV (11:30)
[2019-12-09] MEDS: Acetaminophen 325 MG Tablet 650 MG PO ×2 (16:03→23:16)
[2019-12-09] MEDS: Morphine 2 MG/ML Syringe IV (17:10)
[2019-12-09 18:08] LABS: Partial Thromboplast Time 142.2 Seconds (24.1-36.2)
--- NOTE | 2019-12-09 18:18 | NURSING ---
ptt 142.2 so heparin off x2hr. pt resting easier at this time now and reports i feel like i can breath deeper now since pain so much better no needs at this time .
[2019-12-09] MEDS: Budesonide Respules 0.5 MG/2 ML AMPUL.NEB. INHALATION (19:02)
[2019-12-09] MEDS: Montelukast 10 MG Tablet PO (21:29)
[2019-12-09] MEDS: Morphine 4 MG/ML Syringe IV (21:44)
[2019-12-09] MEDS: 0.9% Saline Lock 10 ML Syringe IV (21:45)
[2019-12-10] VITALS (29 sets, daily range): BP systolic 95–131; BP diastolic 48–65; PULSE 82–114; RESP 12–44; TEMP 37.2–40.2; O2SAT 90–98
[2019-12-10] MEDS: Morphine 4 MG/ML Syringe IV (01:56)
[2019-12-10] MEDS: 0.9% Saline Lock 10 ML Syringe IV ×4 (01:57→16:01)
[2019-12-10 02:19] LABS: Partial Thromboplast Time 91.3 Seconds (24.1-36.2)
[2019-12-10 04:20] LABS: Absolute Lymphocyte Count 1.26 X10^3/uL (0.83-4.51); Absolute Neutrophil Count 8.6 X10^3/uL (2.0-7.7); Basophil# 0.02 X10^3/uL; Basophil% 0.2 % (0-1); Eosinophil# 0.05 X10^3/uL; Eosinophils% 0.5 % (0-5); Hematocrit 28.4 % (37-47); Hemoglobin 8.4 g/dL (12.0-15.0); Lymphocyte # 1.26 X10^3/ul (4.0); Lymphocyte % 11.8 % (19-41); Mean Corp Hgb Conc 29.6 g/dL (32-36); Mean Corpuscular Hgb 29.1 pg (27.0-32.0); Mean Corpuscular Volume 98.3 fL (81-99); Mean Platelet Vol. 9.6 fl (6.2-12.0); Monocyte# 0.71 X10^3/uL; Monocyte% 6.7 % (0-10); NRBC Flagged by Analyzer 0 % (0-5); Neutrophil # 8.56 X10^3/uL (2.7-7.7); Neutrophil % 80.1 % (47-70); Platelet Count 279 K/mm3 (150-450); RBC Distribution Width CV 14.2 % (11.6-14.6); RBC Distribution Width SD 50.6 fl (35.1-43.9); Red Blood Count 2.89 M/mm3 (4.2-5.4); White Blood Count 10.7 K/mm3 (4.4-11.0)
[2019-12-10 04:31] LABS: Anion Gap 8 (5-15); BUN 22 mg/dL (7-18); Chloride 111 mmol/L (98-107); Creatinine, Serum 1.47 mg/dL (0.55-1.02); EST Glomerular Filtration Rate 38 mL/min (>60); Est Glom Filt Rate - Afr Amer 46 mL/min (>60); Estimated Creatinine Clearance 28.79 ml/min; Glucose 131 mg/dL (74-106); Potassium 3.9 mmol/L (3.5-5.1); Sodium Level 140 mmol/L (136-145)
[2019-12-10] MEDS: Levothyroxine 25 MCG TABLET PO (06:05)
--- NOTE | 2019-12-10 06:54 | PN_ITS ---
Subjective: Patient did okay overnight. Patient was able to be taken off of Levophed at approximately 2130. Patient has remained on heparin drip. Patient continues to have significant right-sided pleuritic chest pain and had to be placed on nasal cannula oxygen overnight. Objective: CT of the chest shows a dense right lower lobe infiltrate. General: Alert, Oriented x3, Cooperative, - - Mild to moderate conversational dyspnea. Splints with deep inhalation. HEENT: Atraumatic, PERRLA, EOMI, Normocephalic, - - No scleral icterus or injection noted Oral: Moist Mucosa, No Gingival or Mucosal Lesions/ Ulcerations Neck: Supple, No JVD, No Nodes, Trachea Midline Lungs: Diminished - Right greater than left base, Rhonchi - Right base, Wheezes - Sporadic at end exhalation, - - Actively splints with deep inhalation Cardiovascular: Regular rate, Regular Rhythm, Normal S1, Normal S2, No murmurs, No rub noted, No Gallop Abdomen: Bowel Sounds Present, Soft, Non Tender, Non-Distended, Obese Extremities: No clubbing, No cyanosis, Edema Skin: No rashes, No breakdown Musculoskeletal: No Tenderness to Palpation of Joints or Extremities Lymphatic: No Cervical, Supraclavicular, or Inguinal Adenopathy Neurological: Cranial nerves II-XII grossly intact, Neuro grossly intact, Motor Exam 5/5 strength throughout Psych/Mental Status: Alert and oriented to time, place, person, mood and affect Vital Signs Temp Pulse Resp BP Pulse Ox 37.2 C 82 26 H 96/61 97 12/10/19 04:00 12/10/19 06:00 12/10/19 06:00 12/10/19 06:00 12/10/19 06:00 Oxygen Flow Rate (L/min) 2 Oxygen Delivery Method Nasal Cannula Weight: 111.4 kg Body Mass Index (BMI) 45.8 Intake and Output for Last 24 Hours 12/08/19 12/09/19 12/10/19 23:59 23:59 23:59 Intake Total 7232.32 / 7232.32 558.87 / 558.87 Output Total 1825 / 1825 0 / 0 Balance 5407.32 / 5407.32 558.87 / 558.87 Labs (Last 48 Hours) 12/08/19 12/08/19 12/08/19 22:30 22:30 22:30 WBC 7.3 RBC 3.47 L Hgb 10.3 L Hct 34.1 L MCV 98.3 MCH 29.7 MCHC 30.2 L RDW Std Deviation 49.7 H RDW Coeff of Lanre 13.8 Plt Count 361 MPV 10.0 Immature Gran % (Auto) 0.300 Neut % (Auto) 74.2 H Lymph % (Auto) 17.0 L [place] % (Auto) 7.0 Eos % (Auto) 1.2 Baso % (Auto) 0.3 Absolute Neuts (auto) 5.4 Absolute Lymphs (auto) 1.23 Nucleated RBC % 0 Differential Comment PT 15.3 H INR 1.3 APTT 28.9 Sodium 142 Potassium 5.2 H Chloride 110 H Carbon Dioxide 25.0 Anion Gap 7 BUN 33 H Creatinine 2.14 H Estim Creat Clear Calc 20.73 Est GFR (MDRD) Af Amer 30 L Est GFR (MDRD) Non-Af 25 L BUN/Creatinine Ratio 15.4 Glucose 134 H Lactic Acid Calcium 8.9 Total Bilirubin 0.20 AST 12 L ALT 19 Alkaline Phosphatase 99 Total Protein 7.5 Albumin 3.2 Globulin 4.3 H Albumin/Globulin Ratio 0.7 L TSH Urine Color Urine Clarity Urine pH Ur Specific [place] Urine Protein Urine Glucose (UA) Urine Ketones Urine Occult Blood Urine Nitrite Urine Bilirubin Urine Urobilinogen Ur Leukocyte Esterase Urine RBC Urine WBC Ur Squamous Epith Cells Urine Bacteria Hyaline Casts Urine Mucus COVID-19 (SUSHMA) MRSA (PCR) Blood Type Antibody Screen 12/08/19 12/08/19 12/09/19 22:30 23:15 00:30 WBC RBC Hgb Hct MCV MCH MCHC RDW Std Deviation RDW Coeff of [place]re Plt Count MPV Immature Gran % (Auto) Neut % (Auto) Lymph % (Auto) [place] % (Auto) Eos % (Auto) Baso % (Auto) Absolute Neuts (auto) Absolute Lymphs (auto) Nucleated RBC % Differential Comment PT INR APTT Sodium Potassium Chloride Carbon Dioxide Anion Gap BUN Creatinine Estim Creat Clear Calc Est GFR (MDRD) Af Amer Est GFR (MDRD) Non-Af BUN/Creatinine Ratio Glucose Lactic Acid 1.8 Calcium Total Bilirubin AST ALT Alkaline Phosphatase Total Protein Albumin Globulin Albumin/Globulin Ratio TSH Urine Color Yellow Urine Clarity Clear Urine pH 5.0 Ur Specific [place] 1.020 Urine Protein Negative Urine Glucose (UA) Normal Urine Ketones Negative Urine Occult Blood Negative Urine Nitrite Negative Urine Bilirubin Negative Urine Urobilinogen Normal Ur Leukocyte Esterase 100 H Urine RBC 0 SEEN Urine WBC 0 SEEN Ur Squamous Epith Cells 0-5 SEEN Urine Bacteria 0 SEEN Hyaline Casts 0-5 SEEN Urine Mucus 0 SEEN COVID-19 (SUSHMA) Not Detected MRSA (PCR) Blood Type Antibody Screen 12/09/19 12/09/19 12/09/19 06:00 06:30 06:30 WBC 7.5 RBC 2.75 L Hgb 7.9 L Hct 26.9 L MCV 97.8 MCH 28.7 MCHC 29.4 L RDW Std Deviation 49.8 H RDW Coeff of [place]re 14.0 Plt Count 249 MPV 9.7 Immature Gran % (Auto) 0.300 Neut % (Auto) 81.2 H Lymph % (Auto) 7.5 L [place] % (Auto) 8.8 Eos % (Auto) 1.9 Baso % (Auto) 0.3 Absolute Neuts (auto) 6.1 Absolute Lymphs (auto) 0.56 L Nucleated RBC % 0 Differential Comment SCANNED PT INR APTT Sodium 145 Potassium 4.2 Chloride 119 H Carbon Dioxide 19.0 L Anion Gap 7 BUN 30 H Creatinine 1.85 H Estim Creat Clear Calc 22.88 Est GFR (MDRD) Af Amer 35 L Est GFR (MDRD) Non-Af 29 L BUN/Creatinine Ratio 16.2 Glucose 118 H Lactic Acid Calcium 7.0 L Total Bilirubin AST ALT Alkaline Phosphatase Total Protein Albumin Globulin Albumin/Globulin Ratio TSH Urine Color Urine Clarity Urine pH Ur Specific [place] Urine Protein Urine Glucose (UA) Urine Ketones Urine Occult Blood Urine Nitrite Urine Bilirubin Urine Urobilinogen Ur Leukocyte Esterase Urine RBC Urine WBC Ur Squamous Epith Cells Urine Bacteria Hyaline Casts Urine Mucus COVID-19 (SUSHMA) MRSA (PCR) POSITIVE H Blood Type Antibody Screen 12/09/19 12/09/19 12/09/19 06:30 09:35 11:30 WBC RBC Hgb Hct MCV MCH MCHC RDW Std Deviation RDW Coeff of [place]re Plt Count MPV Immature Gran % (Auto) Neut % (Auto) Lymph % (Auto) [place] % (Auto) Eos % (Auto) Baso % (Auto) Absolute Neuts (auto) Absolute Lymphs (auto) Nucleated RBC % Differential Comment PT INR APTT Sodium Potassium Chloride Carbon Dioxide Anion Gap BUN Creatinine Estim Creat Clear Calc Est GFR (MDRD) Af Amer Est GFR (MDRD) Non-Af BUN/Creatinine Ratio Glucose Lactic Acid 1.6 Calcium Total Bilirubin AST ALT Alkaline Phosphatase Total Protein Albumin Globulin Albumin/Globulin Ratio TSH 0.76 Urine Color Urine Clarity Urine pH Ur Specific [place] Urine Protein Urine Glucose (UA) Urine Ketones Urine Occult Blood Urine Nitrite Urine Bilirubin Urine Urobilinogen Ur Leukocyte Esterase Urine RBC Urine WBC Ur Squamous Epith Cells Urine Bacteria Hyaline Casts Urine Mucus COVID-19 (SUSHMA) MRSA (PCR) Blood Type A POSITIVE Antibody Screen NEGATIVE 12/09/19 12/10/19 12/10/19 17:15 02:00 04:10 WBC 10.7 RBC 2.89 L Hgb 8.4 L Hct 28.4 L MCV 98.3 MCH 29.1 MCHC 29.6 L RDW Std Deviation 50.6 H RDW Coeff of [place] 14.2 Plt Count 279 MPV 9.6 Immature Gran % (Auto) 0.700 Neut % (Auto) 80.1 H Lymph % (Auto) 11.8 L [place] % (Auto) 6.7 Eos % (Auto) 0.5 Baso % (Auto) 0.2 Absolute Neuts (auto) 8.6 H Absolute Lymphs (auto) 1.26 Nucleated RBC % 0 Differential Comment PT INR APTT 142.2 H* 91.3 H* Sodium Potassium Chloride Carbon Dioxide Anion Gap BUN Creatinine Estim Creat Clear Calc Est GFR (MDRD) Af Amer Est GFR (MDRD) Non-Af BUN/Creatinine Ratio Glucose Lactic Acid Calcium Total Bilirubin AST ALT Alkaline Phosphatase Total Protein Albumin Globulin Albumin/Globulin Ratio TSH Urine Color Urine Clarity Urine pH Ur Specific [place] Urine Protein Urine Glucose (UA) Urine Ketones Urine Occult Blood Urine Nitrite Urine Bilirubin Urine Urobilinogen Ur Leukocyte Esterase Urine RBC Urine WBC Ur Squamous Epith Cells Urine Bacteria Hyaline Casts Urine Mucus COVID-19 (SUSHMA) MRSA (PCR) Blood Type Antibody Screen 12/10/19 04:10 WBC RBC Hgb Hct MCV MCH MCHC RDW Std Deviation RDW Coeff of Lanre Plt Count MPV Immature Gran % (Auto) Neut % (Auto) Lymph % (Auto) [place] % (Auto) Eos % (Auto) Baso % (Auto) Absolute Neuts (auto) Absolute Lymphs (auto) Nucleated RBC % Differential Comment PT INR APTT Sodium 140 Potassium 3.9 Chloride 111 H Carbon Dioxide 21.0 Anion Gap 8 BUN 22 H Creatinine 1.47 H Estim Creat Clear Calc 28.79 Est GFR (MDRD) Af Amer 46 L Est GFR (MDRD) Non-Af 38 L BUN/Creatinine Ratio 15.0 Glucose 131 H Lactic Acid Calcium 8.0 L Total Bilirubin AST ALT Alkaline Phosphatase Total Protein Albumin Globulin Albumin/Globulin Ratio TSH Urine Color Urine Clarity Urine pH Ur Specific [place] Urine Protein Urine Glucose (UA) Urine Ketones Urine Occult Blood Urine Nitrite Urine Bilirubin Urine Urobilinogen Ur Leukocyte Esterase Urine RBC Urine WBC Ur Squamous Epith Cells Urine Bacteria Hyaline Casts Urine Mucus COVID-19 (SUSHMA) MRSA (PCR) Blood Type Antibody Screen Microbiology 12/09/19 18:50 Urine, Clean Catch Legionella Antigen - Final 12/09/19 18:50 Urine, Clean Catch Streptococcus pneumoniae Antigen (M - Final 12/08/19 23:15 Mucosa - Nasopharyngeal Respiratory Panel (PCR) - Final Clinical Impression(s) from Imaging Studies Chest X-Ray 12/09/19 05:06 IMPRESSION: Central line is in adequate position. Chronic changes in the lower lung manzano. No evidence for acute cardiopulmonary pathology. Electronically Signed: Archie Bowers MD at 7:03 EDT , Service support , Chest CT 12/09/19 09:24 IMPRESSION: 1. Dense right lower lobe pneumonia. Follow-up CT is recommended after resolution of symptoms to exclude mass, namely bronchogenic carcinoma 2. 4 mm noncalcified right upper lobe nodule and follow-up CT is recommended in 12 months document stability. Electronically Signed: Johnny Mo MD at 10:49 EDT Tel , Service support , Medical Necessity - Tobacco Use Smoking Status: Former smoker Assessment/Plan All Active Problems (Last Reviewed 12/09/19 @ 04:[address] Lul Mazariegos MD) COPD with acute exacerbation (Acute) Septic shock (Acute) Septic shock (Acute) Shortness of breath (Acute) Asthma (Acute) ALEXYS (acute kidney injury) (Acute) RECOMMENDATIONS: 1. Aggressive pain control 2. Continue scheduled bronchodilators and twice daily budesonide. 3. Await sputum culture 4. Continue broad-spectrum antimicrobials. Await infectious diseases consultation. 5. Stop Eliquis and transition patient to continuous heparin infusion for now. 6. Monitor H&H daily and transfuse if hemoglobin drops below 7 g/dL. 7. Start PPI twice daily. IMPRESSIONS: 1. Septic shock secondary to probable drug-resistant right lower lobe pneumonia Patient with significant right lower lobe infiltrate. Patient has grown Pseudomonas and MRSA in the past, and has responded to broad-spectrum antibiotics. Levophed has been discontinued. Stressed to the patient the importance of aggressive pulmonary toileting. We will increase pain regimen and encourage incentive spirometer. Continue to hold home antihypertensives and diuretics until patient is more stable. 2. Anemia Patient's H&H went up slightly compared to yesterday. Would continue with heparin drip for now until condition stabilizes and it is clear that she will not require any interventions. Okay to continue with PPI twice daily for now. No indication for transfusion at this time. 3. Acute kidney injury Improving. Likely prerenal in etiology. Creatinine is improving with volume expansion. Continue to hold antihypertensives and diuretics. 4. History of moderate persistent asthma and steroid induced m yopathy/history of organizing pneumonia The patient is currently maintaining appropriate oxygen saturations on room air but did have a high-grade fever and purulent sputum production. T herefore, we will continue broad-spectrum antimicrobials. CT of the chest is showing a significant right lower lobe pneumonia. Patient will likely need a follow-up CT scan to evaluate for a central obstruction.. Avoid systemic steroids, if possible. 5. History of lung nodules/GERD/paroxysmal atrial fibrillation/history of DVT/PE/anxiety/hypothyroidism/heart failure with preserved ejection fraction Complicates care, management, recovery and prognosis. Continue to hold home antihypertensives. Given anemia, will transition from Eliquis to continuous heparin infusion. TSH level was within normal limits. Inpatient E&M: [id number] [facility] [place] Hosp L3
[2019-12-10] MEDS: Ipratropium/Albuterol Sulfate 3 ML AMPUL.NEB INHALATION ×5 (07:07→23:42)
[2019-12-10] MEDS: Budesonide Respules 0.5 MG/2 ML AMPUL.NEB. INHALATION ×2 (07:07→19:14)
--- NOTE | 2019-12-10 07:47 | PCM.PN.HOSP ---
Patient Problems: Active and Suspected Problems (Last Reviewed 12/09/19 @ 04:[address] Lul Mazariegos MD) COPD with acute exacerbation (Acute) Septic shock (Acute) Septic shock (Acute) Shortness of breath (Acute) Asthma (Acute) ALEXYS (acute kidney injury) (Acute) Reason for Visit: Follow-up on septic shock/RLL pneumonia Subjective: Patient was seen and examined. Events from overnight noted. Patient was weaned off Levophed at 930. Blood pressures have remained stable. She complains of pain in the right lower chest, from coughing. P.o. oxycodone seems to be helping. Still remains febrile, T-max is 101.5F. Objective: Physical exam: General: Alert, Oriented x3, Cooperative, on 2.5 L of oxygen, morbidly obese HEENT: Atraumatic, PERRLA, EOMI, Normocephalic Neck: Supple, Trachea Midline, RIJ central line Lungs: Diminished breath sounds Cardiovascular: Normal S1, Normal S2, No murmurs, Tachycardic Abdomen: Bowel Sounds Present, Soft, Non Tender Extremities: No edema, Capillary Refill Less than 3 Seconds Skin: No rashes, No breakdown Musculoskeletal: No Tenderness to Palpation of Joints or Extremities Neurological: Cranial nerves II-XII grossly intact Psych/Mental Status: Normal Affect, Appropriate Vitals/I&O's: Vital Signs Temp Pulse Resp BP Pulse Ox 98.9 F 89 28 H 124/57 H 95 12/10/19 04:00 12/10/19 07:10 12/10/19 07:10 12/10/19 07:00 12/10/19 07:10 Oxygen Flow Rate (L/min) 2 Oxygen Delivery Method Nasal Cannula Weight: 111.4 kg Body Mass Index (BMI) 45.8 Intake and Output for Last 24 Hours 12/08/19 12/09/19 12/10/19 23:59 23:59 23:59 Intake Total 7232.32 / 7232.32 558.87 / 558.87 Output Total 1825 / 1825 0 / 0 Balance 5407.32 / 5407.32 558.87 / 558.87 Microbiology Past 72 Hours 12/09/19 18:50 Urine, Clean Catch Legionella Antigen - Final 12/09/19 18:50 Urine, Clean Catch Streptococcus pneumoniae Antigen (M - Final 12/08/19 23:15 Mucosa - Nasopharyngeal Respiratory Panel (PCR) - Final Laboratory Results 12/09/19 06:00: MRSA (PCR) POSITIVE H 12/09/19 06:30: WBC 7.5, RBC 2.75 L, Hgb 7.9 L, Hct 26.9 L, MCV 97.8, MCH 28.7, MCHC 29.4 L, RDW Std Deviation 49.8 H, RDW Coeff of Lanre 14.0, Plt Count 249, MPV 9.7, Immature Gran % (Auto) 0.300, Neut % (Auto) 81.2 H, Lymph % (Auto) 7.5 L, [place] % (Auto) 8.8, Eos % (Auto) 1.9, Baso % (Auto) 0.3, Absolute Neuts (auto) 6.1, Absolute Lymphs (auto) 0.56 L, Nucleated RBC % 0, Differential Comment SCANNED 12/09/19 06:30: TSH 0.76 12/09/19 09:35: Lactic Acid 1.6 12/09/19 11:30: Blood Type A POSITIVE, Antibody Screen NEGATIVE 12/09/19 17:15: APTT 142.2 H* 12/10/19 02:00: APTT 91.3 H* 12/10/19 04:10: WBC 10.7, RBC 2.89 L, Hgb 8.4 L, Hct 28.4 L, MCV 98.3, MCH 29.1, MCHC 29.6 L, RDW Std Deviation 50.6 H, RDW Coeff of Lanre 14.2, Plt Count 279, MPV 9.6, Immature Gran % (Auto) 0.700, Neut % (Auto) 80.1 H, Lymph % (Auto) 11.8 L, [place] % (Auto) 6.7, Eos % (Auto) 0.5, Baso % (Auto) 0.2, Absolute Neuts (auto) 8.6 H, Absolute Lymphs (auto) 1.26, Nucleated RBC % 0 12/10/19 04:10: Sodium 140, Potassium 3.9, Chloride 111 H, Carbon Dioxide 21.0, Anion Gap 8, BUN 22 H, Creatinine 1.47 H, Estim Creat Clear Calc 28.79, Est GFR (MDRD) Af Amer 46 L, Est GFR (MDRD) Non-Af 38 L, BUN/Creatinine Ratio 15.0, Glucose 131 H, Calcium 8.0 L Current Medications Acetaminophen (Acetaminophen 325 Mg Tablet) 650 mg PO Q6H PRN PRN PRN Reason: Pain Score 1-10/Temp > 100.7 F Last Admin: 12/09/19 23:16 Dose: 650 mg Documented by: Al Hydroxide/Mg Hydroxide (Mag Hydrox/Al Hydrox/Simeth 30 Ml Udc) 30 ml PO Q6H PRN PRN PRN Reason: Gastric Burning Albuterol Sulfate (Albuterol 2.5 Mg/3 Ml Vial.Neb.) 2.5 mg INHALATION Q2H PRN PRN PRN Reason: sob/wheezing Albuterol/Ipratropium (Ipratropium/Albuterol Sulfate 3 Ml Ampul.Neb) 3 ml INHALATION Q4HWA.RT [facility] Last Admin: 12/10/19 07:07 Dose: 3 ml Documented by: Allopurinol (Allopurinol 100 Mg Tablet) 100 mg PO DAILY [facility] Last Admin: 12/09/19 09:12 Dose: 100 mg Documented by: Azelastine HCl (Azelastine Hcl Nasal.Sry) 2 spray NASAL BID [facility] Last Admin: 12/09/19 21:32 Dose: 2 spray Documented by: Bisacodyl (Bisacodyl 5 Mg Tablet) 10 mg PO DAILY PRN PRN PRN Reason: Constipation Budesonide (Budesonide Respules 0.5 Mg/2 Ml Ampul.Neb.) 0.5 mg INHALATION Q12H.RT [facility] Last Admin: 12/10/19 07:07 Dose: 0.5 mg Documented by: Flecainide Acetate (Flecainide 100 Mg Tablet) 50 mg PO BID [facility] Last Admin: 12/09/19 21:29 Dose: 50 mg Documented by: Guaifenesin (Guaifenesin 1,200 Mg Tablet) 1,200 mg PO BID [facility] Last Admin: 12/09/19 22:01 Dose: 1,200 mg Documented by: Heparin Sodium (Porcine) (Heparin Injection (Vial) 5,000 Unit/Ml Vial) 0 unit IV UD PRN; Protocol PRN Reason: dose adjustment Sodium Chloride () 250 mls @ 15 mls/hr IV .[id number] PRN PRN Reason: Saline Flush Last Infusion: 12/09/19 21:35 Dose: 0 mls/hr Documented by: Sodium Chloride () 250 mls @ 15 mls/hr IV .[id number] PRN PRN Reason: Additional IVPB Infusion Vancomycin IV Pharmacy to Dose (1 ea/ Sodium Chloride) 500 mls @ 250 mls/hr IV PRN PRN; Protocol PRN Reason: Rx to Dose Piperacillin Sod/Tazobactam (Sod 3.375 gm/ Sodium Chloride) 50 mls @ 12.5 mls/hr IV Q12 [facility] Last Infusion: 12/10/19 01:34 Dose: Infused Documented by: Norepinephrine Bitartrate 8 mg (/ Sodium Chloride) 250 mls @ 9.375 mls/hr CONT INF .[id number] [facility]; Protocol Last Titration: 12/10/19 02:00 Dose: 0 mcg/min, 0 mls/hr Documented by: Pantoprazole Sodium 40 mg/ (Sodium Chloride) 110 mls @ 330 mls/hr IV Q12 [facility] Last Infusion: 12/09/19 21:49 Dose: Infused Documented by: Heparin Sodium/Dextrose () 25,000 units in 250 mls @ 15 mls/hr IV .[id number] [facility]; Protocol Last Titration: 12/10/19 06:02 Dose: 11 mls/hr Documented by: Vancomycin HCl 1,250 mg/ (Sodium Chloride) 275 mls @ 167 mls/hr IV Q24H [facility] Last Infusion: 12/10/19 06:02 Dose: Infused Documented by: Levothyroxine Sodium (Levothyroxine 25 Mcg Tablet) 25 mcg PO DAILY@0600 [facility] Last Admin: 12/10/19 06:05 Dose: 25 mcg Documented by: Montelukast Sodium (Montelukast 10 Mg Tablet) 10 mg PO QHS [facility] Last Admin: 12/09/19 21:29 Dose: 10 mg Documented by: Morphine Sulfate (Morphine 2 Mg/Ml Syringe) 2 - 4 mg IV Q3H PRN PRN PRN Reason: Pain Score 8-10 Morphine Sulfate (Morphine 4 Mg/Ml Syringe) 2 - 4 mg IV Q3H PRN PRN PRN Reason: Pain Score 8-10 Last Admin: 12/10/19 01:56 Dose: 4 mg Documented by: Ondansetron HCl (Ondansetron 4 Mg/2 Ml Vial) 4 mg IV Q8H PRN PRN PRN Reason: NAUSEA/VOMITING Oxycodone HCl (Oxycodone 5 Mg Tablet) 5 mg PO Q4H PRN PRN PRN Reason: Pain Score 4-7 Polyethylene Glycol (Polyethylene Glycol 3350 17 Gm Packet) 17 gm PO DAILY [facility]I Prochlorperazine Edisylate (Prochlorperazine 10 Mg/2 Ml Vial) 10 mg IV Q6H PRN PRN PRN Reason: Nausea/Vomiting Senna/Docusate Sodium (Senna/Docusate Sodium 1 Tablet) 2 tablet PO BID PRN PRN PRN Reason: Constipation Sodium Chloride (0.9% Saline Lock 10 Ml Syringe) 10 - 40 ml IV UD PRN PRN Reason: SALINE FLUSH Last Admin: 12/10/19 01:57 Dose: 40 ml Documented by: SHOBHA Vital Signs/Narrative: Vital Signs Temp Pulse Resp BP Pulse Ox 12/10/19 07:10 89 28 H 95 12/10/19 07:00 89 25 H 124/57 H 96 12/10/19 06:00 82 26 H 96/61 97 12/10/19 05:00 86 21 H 102/58 L 97 12/10/19 04:17 86 12/10/19 04:00 98.9 F 87 20 H 105/52 L 96 Medical Necessity - Tobacco Use Smoking Status: Former smoker Assessment/Plan All Active Problems (Last Reviewed 12/09/19 @ 04:[address] Lul Mazariegos MD) COPD with acute exacerbation (Acute) Septic shock (Acute) Septic shock (Acute) Shortness of breath (Acute) Asthma (Acute) ALEXYS (acute kidney injury) (Acute) 1. Septic shock secondary to right lower lobe pneumonia, resolved Blood pressures are much better. Blood cultures are pending. Continue on IV vancomycin 2. MRSA/Pseudomonas RLL pneumonia, on IV vancomycin and IV cefepime Sputum cultures on 12/09/19 growing gram-negative eli, possible Pseudomonas History of Pseudomonas aeruginosa. Covid 19 PCR negative ID consulted, will follow up on recommendation 2. Acute hypoxic respiratory insufficiency secondary to #2, Continue treatment for pneumonia Wean off for SPO2 more than 94% 3. Acute kidney injury, prerenal likely secondary to #1 Admitting creatinine is 2.14, baseline creatinine is 1.4 Off lisinopril. We will repeat blood work in a.m. 4. Acute on chronic anemia, hemoglobin from 10.3-7.9, repeat hemoglobin is 8.4 No signs of acute blood loss, will continue to trend 5. Hypertension, BPs are improved. Patient was in septic shock on admission Continue to hold lisinopril, Cardizem We will slowly resume if improved 6. Hypothyroidism, continue on levothyroxine 7. Paroxysmal atrial fibrillation, in normal sinus rhythm, new on flecainide Continue to hold Cardizem on account of recent shock Continue on heparin drip 8. DVT prophylaxis?on heparin drip Inpatient E&M: [id number] [facility] Hosp L3
[2019-12-10] MEDS: oxyCODONE 5 MG Tablet PO ×3 (08:22→22:15)
[2019-12-10] MEDS: Acetaminophen 325 MG Tablet 650 MG PO ×3 (08:29→22:10)
[2019-12-10 09:48] LABS: Partial Thromboplast Time 63.4 Seconds (24.1-36.2)
[2019-12-10] MEDS: HEPARIN/D5w 25,000 UNITS 25,000 UNITS/250 ML IV.SOLN. 11 UNITS IV (10:07)
[2019-12-10] MEDS: Azelastine HCl NASAL.SRY 2 SPRAY NASAL ×2 (10:16→22:25)
[2019-12-10] MEDS: guaiFENesin 1,200 MG Tablet 1200 MG PO ×2 (10:16→22:15)
[2019-12-10] MEDS: Polyethylene Glycol 3350 17 GM PACKET PO (10:16)
[2019-12-10] MEDS: Allopurinol 100 MG Tablet PO (10:21)
[2019-12-10] MEDS: Flecainide 100 MG Tablet 50 MG PO ×2 (10:22→22:17)
[2019-12-10] MEDS: Furosemide 20 MG/2 ML VIAL IV ×2 (15:47→23:25)
--- NOTE | 2019-12-10 15:50 | CASEMGMT ---
Addendum entered by Dinah Chávez 12/10/19 19:50: Pt does not have home O2. She states she does not have preference of DME company if she would qualify for O2 @ D/C May need Home O2 testing prior to discharge. Original Note: RN CM CIS COORDINATOR NATALI placed call to pt's room and assessment completed via phone. Pt is A/O at this time and answers all questions appropriately.?? Care providers, pharmacy, and demographics verified/updated at this time. PCP: Dr Donnelly Specialists: Dr Bazzi-pulmonology. [facility]--Dr Aragon--cardiology Preferred Pharmacy: [facility] Insurance: MCR, MMO Prescription Benefit:? Yes, [employer] Living Will/HPOA:? Has both LW and Healthcare POFernie, who is her sister, Eloisa Casarez. Both are on e-file @ [facility] LNOK: Sisters: Eloisa Casarez ([facility]) and [place] Living Arrangements: Lives in a one-story home w/basement. 2 steps or a ramp to enter. Daughter w/special needs, lives with her. Pt's sister, Eloisa, is staying @ pt's home at this time to care for her daughter while pt is in the hospital. Transportation: Pt states drives self and states no transportation concerns at this time.? DME: ?Pt has a lot of DME from prior hospitalization that she does not use: WW, rollator, cane, BSC, Shower Chair, Shorthand Teacher, Sock aid. She states she did use the walker on Sat when she became ill, but usually ambulates w/out DME. Pt states no need for further DME at this time.? HHC/SNF: Hx of [facility] SNF and [facility]. Pt wishes to return home and states has no concerns with going home at time of discharge.? CM to follow for any discharge planning/needs.? Pt voices no concerns/needs at this time.? Advised pt to ask for CM if any questions/concerns/needs arise.? Voices understanding. PLAN: ?Home. Follow PT/OT. Tc WINSTON RN, CM
--- NOTE | 2019-12-10 17:29 | PCM.HP.ID ---
Problem List (1) Septic shock Status: Acute Reason for Consult: pneumonia Consulted by: Dr. Worthy History of Present Illness: The patient is a 64 year old F with recurrent pneumonia, presented 12/08 with septic shock, dyspnea, cough, fever, yellow sputum. Sputum with PsA and MRSA on 10/26/19, given 2 weeks of doxy and levaquin, completed about 2 weeks ago. Now with sx again, admitted to icu on pressors, now out of unit, feeling better, on vanc. Full ROS performed and neg except as noted above. - Medical History Past Medical History (Chronic Problems): Chronic Problems (Last Reviewed 12/09/19 @ 04:[address] 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) Lung nodule (Chronic) Abnormal chest CT (Chronic) Cavitary lesion of lung (Chronic) Obesity (Chronic) Chronic respiratory failure (Chronic) Benign essential HTN (Chronic) COLD (chronic obstructive lung disease) (Chronic) Gastroesophageal reflux disease (Chronic) Umbilical hernia (Chronic) Hx pulmonary embolism (Chronic) Morbid obesity (Chronic) Atrial tachycardia (Chronic) PVD (peripheral vascular disease) (Chronic) HTN (hypertension) (Chronic) Steroid myopathy (Chronic) Insomnia (Chronic) Allergic rhinitis (Chronic) Pulmonary embolism (Chronic) DVT (deep venous thrombosis) (Chronic) Diabetes mellitus (Chronic) Hyperlipidemia (Chronic) Venous thromboembolism (VTE) (Chronic) Obstructive sleep apnea (Chronic) Allergies/Adverse Reactions: Allergies adhesive Allergy (Verified 10/19/19 10:46) Other SKIN TEARS. PAPER TAPE OK azithromycin [From Zithromax] Allergy (Verified 10/19/19 10:46) Rash cefuroxime sodium [From Zinacef] Allergy (Verified 10/19/19 10:46) Rash clindamycin Allergy (Verified 10/19/19 10:46) Hives nitrofurantoin macrocrystalline [From Macrodantin] Allergy (Verified 10/19/19 10:46) Rash Sulfa (Sulfonamide Antibiotics) Allergy (Verified 10/19/19 10:46) Rash atenolol Adverse Reaction (Severe, Verified 10/19/19 10:46) Peripheal edema & cough metoprolol [From Toprol XL] Adverse Reaction (Severe, Verified 10/19/19 10:46) Peripheral edema & cough duloxetine [From Cymbalta] Adverse Reaction (Intermediate, Verified 10/19/19 10:46) made me feel really sick oxycodone HCl [From Percocet] Adverse Reaction (Verified 10/19/19 10:46) Vomiting STEROID Adverse Reaction (Uncoded 10/19/19 10:46) Other INDUCED MYOPATHY Home Medications: Ambulatory Orders Medication Instructions Recorded Levothyroxine [Synthroid] 25 mcg PO DAILY@0600 02/15/18 montelukast 10 mg tablet 10 mg PO QHS #30 tab 02/27/18 lisinopril 5 mg tablet 5 mg PO DAILY 07/13/18 esomeprazole magnesium 20 mg 20 mg PO DAILY 01/25/19 capsule,delayed release spironolactone 25 mg tablet 25 mg PO DAILY 01/25/19 apixaban 5 mg tablet 5 mg PO BID #60 tab 03/06/19 diltiazem HCl 180 mg 180 mg PO DAILY #30 cap 03/06/19 capsule,extended release 24 hr flecainide 50 mg tablet 50 mg PO BID #60 tab 03/06/19 albuterol sulfate 2.5 mg INHALATION Q4H PRN #180 vial 04/20/19 furosemide 20 mg tablet 20 mg PO DAILY tab 07/27/19 azelastine 137 mcg (0.1 %) nasal 2 spray INTRANASAL BID #30 ml 10/19/19 spray aerosol cholecalciferol (vitamin D3) 10 10 mcg PO DAILY 10/19/19 mcg/drop (400 unit/drop) oral drops omega-3 fatty acids 1,000 mg 1,000 mg PO DAILY 10/19/19 capsule albuterol sulfate 90 mcg/actuation 2 puff INHALATION Q4H PRN PRN #1 ea 11/16/19 aerosol inhaler Allopurinol [Zyloprim] 100 mg PO DAILY 12/09/19 Fluticasone/Salmeterol [Advair Hfa 2 puff INHALATION BID 12/09/19 230-21 Mcg Inhaler] Furosemide [Lasix] 40 mg PO BREAKFAST 12/09/19 - Social History SMOKING STATUS:: Former smoker Vital Signs Temp Pulse Resp BP Pulse Ox 101.2 F H 108 H 28 H 105/62 98 12/10/19 15:40 12/10/19 15:40 12/10/19 15:40 12/10/19 15:40 12/10/19 15:40 Oxygen Flow Rate (L/min) 2.5 Oxygen Delivery Method Nasal Cannula Weight: 111.4 kg Body Mass Index (BMI) 45.8 Microbiology Past 72 Hours 12/09/19 07:55 Gram Stain - Final Sputum, Expectorated/Coughed Respiratory Culture - Preliminary GNR Poss Pseudomonas sp Staphylococcus aureus 12/09/19 00:30 Urine Culture - Final Urine, Clean Catch Mixed Gram Pos & Gram Neg Org 12/09/19 18:50 Legionella Antigen - Final Urine, Clean Catch Streptococcus pneumoniae Antigen (M - Final 12/08/19 23:15 Respiratory Panel (PCR) - Final Mucosa - Nasopharyngeal Laboratory Tests Past 24 Hrs 12/09/19 12/10/19 12/10/19 17:15 02:00 04:10 WBC 10.7 RBC 2.89 L Hgb 8.4 L Hct 28.4 L MCV 98.3 MCH 29.1 MCHC 29.6 L RDW Std Deviation 50.6 H RDW Coeff of Lanre 14.2 Plt Count 279 MPV 9.6 Immature Gran % (Auto) 0.700 Neut % (Auto) 80.1 H Lymph % (Auto) 11.8 L Cuming % (Auto) 6.7 Eos % (Auto) 0.5 Baso % (Auto) 0.2 Absolute Neuts (auto) 8.6 H Absolute Lymphs (auto) 1.26 Nucleated RBC % 0 APTT 142.2 H* 91.3 H* Sodium Potassium Chloride Carbon Dioxide Anion Gap BUN Creatinine Estim Creat Clear Calc Est GFR (MDRD) Af Amer Est GFR (MDRD) Non-Af BUN/Creatinine Ratio Glucose Calcium 12/10/19 12/10/19 04:10 09:10 WBC RBC Hgb Hct MCV MCH MCHC RDW Std Deviation RDW Coeff of Lanre Plt Count MPV Immature Gran % (Auto) Neut % (Auto) Lymph % (Auto) Cuming % (Auto) Eos % (Auto) Baso % (Auto) Absolute Neuts (auto) Absolute Lymphs (auto) Nucleated RBC % APTT 63.4 H Sodium 140 Potassium 3.9 Chloride 111 H Carbon Dioxide 21.0 Anion Gap 8 BUN 22 H Creatinine 1.47 H Estim Creat Clear Calc 28.79 Est GFR (MDRD) Af Amer 46 L Est GFR (MDRD) Non-Af 38 L BUN/Creatinine Ratio 15.0 Glucose 131 H Calcium 8.0 L - Other Studies Radiology: [] reviewed Other Studies: [] Route of nutrition/ use of supplements: [] Nutritional Intake: [] IV Site: [] Liz Catheter: [] - Physical Exam General: Alert, Oriented x3, Cooperative, No apparent distress HEENT: Atraumatic, PERRLA, EOMI Lungs: Rhonchi Cardiovascular: Regular rate, Regular Rhythm Abdomen: Soft, Non Tender, Non-Distended Extremities: No edema Skin: No rashes IV Site: Central Line, without redness Musculoskeletal: No Tenderness to Palpation of Joints or Extremities Neurological: Cranial nerves II-XII grossly intact - Assessment/Plan Antibiotics: [] Assessment/Plan: [] Active and Suspected Problems (Last Reviewed 12/09/19 @ 04:[address] Lul Mazariegos MD) COPD with acute exacerbation (Acute) Septic shock (Acute) Septic shock (Acute) Shortness of breath (Acute) Asthma (Acute) ALEXYS (acute kidney injury) (Acute) Sputum again with staph and pseudomonas. Cont vanc. Will add cefepime for pseudomonal coverage; has tolerated in the past. Overall much improved and out of icu. Fever curve better. ALEXYS improved. Covid neg. Will follow, thank you
[2019-12-10 17:50] LABS: Bedside Glucose 102 mg/dL (70-110)
[2019-12-10 18:34] LABS: Partial Thromboplast Time 55.5 Seconds (24.1-36.2)
[2019-12-10] MEDS: Montelukast 10 MG Tablet PO (22:16)
--- NOTE | 2019-12-10 23:32 | PCM.PN.BLA ---
Progress Note Nurse reports that patient has a fever with temperature of 104.3 Fahrenheit. Ductopenia with respiratory rate 44. Get blood culture. Currently with ice packs pain medicine since Tylenol was given about an hour ago. Will give tobramycin 30 mg inhalation x1. Placed on BiPAP. STROKE Vital Signs/Narrative: Vital Signs Temp Pulse Resp BP Pulse Ox 12/10/19 23:00 104.3 F H 110 H 42 H 131/65 H 95 12/10/19 22:00 102.9 F H 104 H 44 H 120/61 96
[2019-12-10] MEDS: Tobramycin 80 MG/2 ML Vial 300 MG INHALATION (23:57)
[2019-12-11] VITALS (28 sets, daily range): BP systolic 90–125; BP diastolic 49–77; PULSE 88–112; RESP 18–32; TEMP 37.7–38.7; O2SAT 91–99
--- NOTE | 2019-12-11 00:20 | NURSING ---
pt feeling nauseated after the tobramycin breathing treatment, prn compazine given, taken off bipap till the nausea passes
[2019-12-11] MEDS: proCHLORPERazine 10 MG/2 ML Vial IV (00:21)
--- NOTE | 2019-12-11 00:24 | CPS ---
bipap on stby due to pt nausea
[2019-12-11 00:40] LABS: Bedside Glucose 118 mg/dL (70-110)
--- NOTE | 2019-12-11 01:22 | NURSING ---
pt only tolerated the bipap for about an hour and then stated it had to come off, placed back on 3lnc, resp 22, temp down to 99.9 ta
[2019-12-11] MEDS: Acetaminophen 325 MG Tablet 650 MG PO ×4 (04:00→22:22)
--- NOTE | 2019-12-11 06:52 | PCM.PN.PUL ---
Patient Problems: Active and Suspected Problems (Last Reviewed 12/09/19 @ 04:[address] Lul Mazariegos MD) COPD with acute exacerbation (Acute) Septic shock (Acute) Septic shock (Acute) Shortness of breath (Acute) Asthma (Acute) ALEXYS (acute kidney injury) (Acute) Subjective: Patient transported out of the intensive care unit yesterday. Patient did develop significant fever overnight with respiratory distress. Patient was placed on BiPAP with good response. Patient states her pain was improved prior to initiation of BiPAP, but she feels this is irritated her lungs. Patient has remained hemodynamically stable and is currently on 3 L nasal cannula and tolerating well. - Physical Exam Vitals/I&O's: Vital Signs Temp Pulse Resp BP Pulse Ox 37.9 C H 98 24 H 108/70 98 12/11/19 03:00 12/11/19 04:00 12/11/19 04:00 12/11/19 03:00 12/11/19 03:00 Oxygen Flow Rate (L/min) 3 Oxygen Delivery Method Nasal Cannula Weight: 111.4 kg Body Mass Index (BMI) 45.8 Intake and Output for Last 24 Hours 12/09/19 12/10/19 12/11/19 23:59 23:59 23:59 Intake Total 7232.32 / 7232.32 1046.67 / 1046.67 585 / 585 Output Total 1825 / 1825 700 / 700 800 / 800 Balance 5407.32 / 5407.32 346.67 / 346.67 -215 / -215 General: Alert, Oriented x3, Cooperative, - - Mild conversational dyspnea. HEENT: Atraumatic, PERRLA, EOMI, Normocephalic, - - No scleral icterus or injection noted Oral: Moist Mucosa, No Gingival or Mucosal Lesions/ Ulcerations, - - Crowded posterior pharynx Neck: Supple, No JVD, No Nodes, Trachea Midline Lungs: No wheeze, No rales, Diminished - Right base, - - Faint rub noted at the right base Cardiovascular: Regular rate, Regular Rhythm, Normal S1, Normal S2, No murmurs, No rub noted, No Gallop Abdomen: Bowel Sounds Present, Soft, Non Tender, Non-Distended, Obese Extremities: No clubbing, No cyanosis, No edema Skin: No rashes, No breakdown Musculoskeletal: No Tenderness to Palpation of Joints or Extremities Lymphatic: No Cervical, Supraclavicular, or Inguinal Adenopathy Neurological: Cranial nerves II-XII grossly intact, Neuro grossly intact, Motor Exam 5/5 strength throughout Psych/Mental Status: Alert and oriented to time, place, person, mood and affect Microbiology Past 72 Hours 12/09/19 07:55 Sputum, Expectorated/Coughed Gram Stain - Final 12/09/19 07:55 Sputum, Expectorated/Coughed Respiratory Culture - Preliminary GNR Poss Pseudomonas sp Staphylococcus aureus 12/09/19 00:30 Urine, Clean Catch Urine Culture - Final Mixed Gram Pos & Gram Neg Org 12/09/19 18:50 Urine, Clean Catch Legionella Antigen - Final 12/09/19 18:50 Urine, Clean Catch Streptococcus pneumoniae Antigen (M - Final 12/08/19 23:15 Mucosa - Nasopharyngeal Respiratory Panel (PCR) - Final Laboratory Results 12/10/19 09:10: APTT 63.4 H 12/10/19 17:42: POC Glucose 102 12/10/19 17:43: APTT 55.5 H 12/10/19 23:18: POC Glucose 118 H Current Medications Acetaminophen (Acetaminophen 325 Mg Tablet) 650 mg PO Q6H PRN PRN PRN Reason: Pain Score 1-10/Temp > 100.7 F Last Admin: 12/10/19 22:10 Dose: 650 mg Documented by: Al Hydroxide/Mg Hydroxide (Mag Hydrox/Al Hydrox/Simeth 30 Ml Udc) 30 ml PO Q6H PRN PRN PRN Reason: Gastric Burning Albuterol Sulfate (Albuterol 2.5 Mg/3 Ml Vial.Neb.) 2.5 mg INHALATION Q2H PRN PRN PRN Reason: sob/wheezing Albuterol/Ipratropium (Ipratropium/Albuterol Sulfate 3 Ml Ampul.Neb) 3 ml INHALATION Q4HWA.RT [facility] Last Admin: 12/10/19 23:42 Dose: 3 ml Documented by: Allopurinol (Allopurinol 100 Mg Tablet) 100 mg PO DAILY [facility] Last Admin: 12/10/19 10:21 Dose: 100 mg Documented by: Azelastine HCl (Azelastine Hcl Nasal.Sry) 2 spray NASAL BID [facility] Last Admin: 12/10/19 22:25 Dose: 2 spray Documented by: Bisacodyl (Bisacodyl 5 Mg Tablet) 10 mg PO DAILY PRN PRN PRN Reason: Constipation Budesonide (Budesonide Respules 0.5 Mg/2 Ml Ampul.Neb.) 0.5 mg INHALATION Q12H.RT [facility] Last Admin: 12/10/19 19:14 Dose: 0.5 mg Documented by: Dextrose (Dextrose 50%-Water 25 Gm/50 Ml Disp.Syrin) 0 gm IV X1 PRN; Protocol PRN Reason: Hypoglycemia Flecainide Acetate (Flecainide 100 Mg Tablet) 50 mg PO BID [facility] Last Admin: 12/10/19 22:17 Dose: 50 mg Documented by: Furosemide (Furosemide 20 Mg/2 Ml Vial) 20 mg IV BID@1000,1800 [facility] Last Admin: 12/10/19 23:25 Dose: 20 mg Documented by: Glucagon (Glucagon 1 Mg/Ml Syringe) 1 mg IM .X1 PRN PRN Reason: Hypoglycemia Guaifenesin (Guaifenesin 1,200 Mg Tablet) 1,200 mg PO BID [facility] Last Admin: 12/10/19 22:15 Dose: 1,200 mg Documented by: Heparin Sodium (Porcine) (Heparin Injection (Vial) 5,000 Unit/Ml Vial) 0 unit IV UD PRN; Protocol PRN Reason: dose adjustment Sodium Chloride () 250 mls @ 15 mls/hr IV .[id number] PRN PRN Reason: Saline Flush Last Infusion: 12/10/19 16:13 Dose: 0 mls/hr Documented by: Sodium Chloride () 250 mls @ 15 mls/hr IV .[id number] PRN PRN Reason: Additional IVPB Infusion Vancomycin IV Pharmacy to Dose (1 ea/ Sodium Chloride) 500 mls @ 250 mls/hr IV PRN PRN; Protocol PRN Reason: Rx to Dose Pantoprazole Sodium 40 mg/ (Sodium Chloride) 110 mls @ 330 mls/hr IV Q12 [facility] Last Infusion: 12/11/19 00:30 Dose: Infused Documented by: Heparin Sodium/Dextrose () 25,000 units in 250 mls @ 15 mls/hr IV .[id number] [facility]; Protocol Last Titration: 12/10/19 10:12 Dose: 11 mls/hr Documented by: Vancomycin HCl 1,250 mg/ (Sodium Chloride) 275 mls @ 167 mls/hr IV Q24H [facility] Last Infusion: 12/11/19 06:49 Dose: Infused Documented by: Cefepime HCl 2 gm/ Sodium (Chloride) 100 mls @ 200 mls/hr IV Q24 [facility] Last Infusion: 12/10/19 16:12 Dose: Infused Documented by: Insulin Human Lispro (Insulin Lispro 100 Unit/Ml Insuln.Pen) 0 unit SC [facility]; Protocol Last Admin: 12/10/19 23:22 Dose: Not Given Documented by: Levothyroxine Sodium (Levothyroxine 25 Mcg Tablet) 25 mcg PO DAILY@0600 [facility] Last Admin: 12/10/19 06:05 Dose: 25 mcg Documented by: Montelukast Sodium (Montelukast 10 Mg Tablet) 10 mg PO QHS [facility] Last Admin: 12/10/19 22:16 Dose: 10 mg Documented by: Ondansetron HCl (Ondansetron 4 Mg/2 Ml Vial) 4 mg IV Q8H PRN PRN PRN Reason: NAUSEA/VOMITING Oxycodone HCl (Oxycodone 5 Mg Tablet) 5 mg PO Q4H PRN PRN PRN Reason: Pain Score 4-7 Last Admin: 12/10/19 22:15 Dose: 5 mg Documented by: Polyethylene Glycol (Polyethylene Glycol 3350 17 Gm Packet) 17 gm PO DAILY [facility] Last Admin: 12/10/19 10:16 Dose: 17 gm Documented by: Prochlorperazine Edisylate (Prochlorperazine 10 Mg/2 Ml Vial) 10 mg IV Q6H PRN PRN PRN Reason: Nausea/Vomiting Last Admin: 12/11/19 00:21 Dose: 10 mg Documented by: Senna/Docusate Sodium (Senna/Docusate Sodium 1 Tablet) 2 tablet PO BID PRN PRN PRN Reason: Constipation Sodium Chloride (0.9% Saline Lock 10 Ml Syringe) 10 - 40 ml IV UD PRN PRN Reason: SALINE FLUSH Last Admin: 12/10/19 16:01 Dose: 10 ml Documented by: Medical Necessity - Tobacco Use Smoking Status: Former smoker Assessment/Plan All Active Problems (Last Reviewed 12/09/19 @ 04:[address] Lul Mazariegos MD) COPD with acute exacerbation (Acute) Septic shock (Acute) Septic shock (Acute) Shortness of breath (Acute) Asthma (Acute) ALEXYS (acute kidney injury) (Acute) RECOMMENDATIONS: 1. Aggressive pain control 2. Continue scheduled bronchodilators and twice daily budesonide. Avoiding systemic steroids 3. Await sputum culture sensitivities 4. Continue broad-spectrum antimicrobials. Await infectious diseases recommendations 5. Stop Eliquis and transition patient to continuous heparin infusion for now. 6. Monitor H&H daily and transfuse if hemoglobin drops below 7 g/dL. 7. BiPAP rescue as needed IMPRESSIONS: 1. Septic shock secondary to probable drug-resistant right lower lobe pneumonia Patient with significant right lower lobe infiltrate. Patient has grown Pseudomonas and MRSA in the past, and appears to be growing this again. Patient has remained hemodynamically stable, but did require the need for BiPAP rescue overnight.. Stressed to the patient the importance of aggressive pulmonary toileting. We will increase pain regimen and encourage incentive spirometer. Continue to hold home antihypertensives and diuretics until patient is more stable. 2. Anemia Patient's H&H went up slightly compared to yesterday. Would continue with heparin drip for now until condition stabilizes and it is clear that she will not require any interventions. Okay to continue with PPI twice daily for now. No indication for transfusion at this time. 3. Acute kidney injury Improving. Likely prerenal in etiology. Creatinine is improving with volume expansion. Continue to hold antihypertensives and diuretics. 4. History of moderate persistent asthma and steroid induced myopathy/history of organizing pneumonia The patient is currently maintaining appropriate oxygen saturations on room air but did have a high-grade fever and purulent sputum production. Therefore, we will continue broad-spectrum antimicrobials. CT of the chest is showing a significant right lower lobe pneumonia. Patient will likely need a follow-up CT scan to evaluate for a central obstruction.. Avoid systemic steroids, if possible. 5. History of lung nodules/GERD/paroxysmal atrial fibrillation/history of DVT/PE/anxiety/hypothyroidism/heart failure with preserved ejection fraction Complicates care, management, recovery and prognosis. Continue to hold home antihypertensives. Given anemia, will transition from Eliquis to continuous heparin infusion. TSH level was within normal limits. 6. Acute hypoxic respiratory failure secondary to #1 Patient with BiPAP rescue overnight. Patient likely has an element of obstructive sleep apnea and dense consolidation leading to decompensation. High fevers will lead to increased metabolic demand. Continue with BiPAP rescue as necessary. Attempting to avoid systemic steroids secondary to a history of critical care neuropathy. Inpatient E&M: 94370 Subs Hosp L3
[2019-12-11] MEDS: Levothyroxine 25 MCG TABLET PO (07:03)
[2019-12-11 07:21] LABS: Bedside Glucose 120 mg/dL (70-110)
[2019-12-11] MEDS: Ipratropium/Albuterol Sulfate 3 ML AMPUL.NEB INHALATION ×4 (07:26→18:54)
[2019-12-11] MEDS: Budesonide Respules 0.5 MG/2 ML AMPUL.NEB. INHALATION ×2 (07:26→18:53)
[2019-12-11 07:32] LABS: Hematocrit 27.9 % (37-47); Hemoglobin 8.4 g/dL (12.0-15.0); Mean Corp Hgb Conc 30.1 g/dL (32-36); Mean Corpuscular Hgb 29.4 pg (27.0-32.0); Mean Corpuscular Volume 97.6 fL (81-99); Mean Platelet Vol. 9.9 fl (6.2-12.0); POSITIVE COUNT YES; POSITIVE MORPHOLOGY YES; Platelet Count 280 K/mm3 (150-450); RBC Distribution Width CV 14.3 % (11.6-14.6); RBC Distribution Width SD 51.3 fl (35.1-43.9); Red Blood Count 2.86 M/mm3 (4.2-5.4); White Blood Count 10.4 K/mm3 (4.4-11.0)
[2019-12-11 07:41] LABS: Differential Indicated MANUAL DIFF
[2019-12-11 07:48] LABS: BUN 21 mg/dL (7-18); Creatinine, Serum 1.66 mg/dL (0.55-1.02); Glucose 119 mg/dL (74-106)
[2019-12-11 07:49] LABS: ALB/GLOB Ratio 0.5 RATIO (0.9-2.4); AST(SGOT) 11 U/L (15-37); Alanine Aminotransfer ALT/SGPT 12 U/L (13-56); Albumin, Serum 2.1 g/dL (3.2-5.0); Alkaline Phosphatase 77 U/L (45-117); Anion Gap 8 (5-15); BUN/Creat Ratio 12.7 RATIO (10-20); Calcium,Total 8.2 mg/dL (8.5-10.1); Chloride 108 mmol/L (98-107); EST Glomerular Filtration Rate 33 mL/min (>60); Est Glom Filt Rate - Afr Amer 40 mL/min (>60); Globulin 4.6 g/dL (2.2-4.2); Potassium 3.8 mmol/L (3.5-5.1); Protein, Total 6.7 g/dL (6.4-8.2); Sodium Level 138 mmol/L (136-145)
--- NOTE | 2019-12-11 08:16 | PCM.PN.HOSP ---
Patient Problems: Active and Suspected Problems (Last Reviewed 12/09/19 @ 04:[address] Lul Mazariegos MD) COPD with acute exacerbation (Acute) Septic shock (Acute) Septic shock (Acute) Shortness of breath (Acute) Asthma (Acute) ALEXYS (acute kidney injury) (Acute) Reason for Visit: Follow-up on septic shock/RLL pneumonia Subjective: Patient was seen and examined. Overnight, she was febrile up to 104.3. Repeat blood cultures were taken. She feels much improved today. Objective: Physical exam: General: Alert, Oriented x3, Cooperative, on 2.5 L of oxygen, morbidly obese HEENT: Atraumatic, PERRLA, EOMI, Normocephalic Neck: Supple, Trachea Midline, RIJ central line Lungs: Diminished breath sounds Cardiovascular: Normal S1, Normal S2, No murmurs, Tachycardic Abdomen: Bowel Sounds Present, Soft, Non Tender Extremities: No edema, Capillary Refill Less than 3 Seconds Skin: No rashes, No breakdown Musculoskeletal: No Tenderness to Palpation of Joints or Extremities Neurological: Cranial nerves II-XII grossly intact Psych/Mental Status: Normal Affect, Appropriate Vitals/I&O's: Vital Signs Temp Pulse Resp BP Pulse Ox 100.4 F H 93 27 H 118/62 94 12/11/19 07:04 12/11/19 07:04 12/11/19 07:04 12/11/19 07:04 12/11/19 07:04 Oxygen Flow Rate (L/min) 3 Oxygen Delivery Method Nasal Cannula Weight: 111.6 kg Body Mass Index (BMI) 45.8 Intake and Output for Last 24 Hours 12/09/19 12/10/19 12/11/19 23:59 23:59 23:59 Intake Total 7232.32 / 7232.32 1046.67 / 1046.67 585 / 585 Output Total 1825 / 1825 700 / 700 800 / 800 Balance 5407.32 / 5407.32 346.67 / 346.67 -215 / -215 Microbiology Past 72 Hours 12/09/19 07:55 Sputum, Expectorated/Coughed Gram Stain - Final 12/09/19 07:55 Sputum, Expectorated/Coughed Respiratory Culture - Preliminary GNR Poss Pseudomonas sp Staphylococcus aureus 12/09/19 00:30 Urine, Clean Catch Urine Culture - Final Mixed Gram Pos & Gram Neg Org 12/09/19 18:50 Urine, Clean Catch Legionella Antigen - Final 12/09/19 18:50 Urine, Clean Catch Streptococcus pneumoniae Antigen (M - Final 12/08/19 23:15 Mucosa - Nasopharyngeal Respiratory Panel (PCR) - Final Laboratory Results 12/10/19 09:10: APTT 63.4 H 12/10/19 17:42: POC Glucose 102 12/10/19 17:43: APTT 55.5 H 12/10/19 23:18: POC Glucose 118 H 12/11/19 07:00: POC Glucose 120 H 12/11/19 07:12: WBC 10.4, RBC 2.86 L, Hgb 8.4 L, Hct 27.9 L, MCV 97.6, MCH 29.4, MCHC 30.1 L, RDW Std Deviation 51.3 H, RDW Coeff of Lanre 14.3, Plt Count 280, MPV 9.9, Neut % (Auto) Not Reportable, Absolute Neuts (auto) Pending 12/11/19 07:12: Sodium 138, Potassium 3.8, Chloride 108 H, Carbon Dioxide 22.0, Anion Gap 8, BUN 21 H, Creatinine 1.66 H, Estim Creat Clear Calc 25.50, Est GFR (MDRD) Af Amer 40 L, Est GFR (MDRD) Non-Af 33 L, BUN/Creatinine Ratio 12.7, Glucose 119 H, Calcium 8.2 L, Total Bilirubin 0.40, AST 11 L, ALT 12 L, Alkaline Phosphatase 77, Total Protein 6.7, Albumin 2.1 L, Globulin 4.6 H, Albumin/Globulin Ratio 0.5 L Current Medications Acetaminophen (Acetaminophen 325 Mg Tablet) 650 mg PO Q6H PRN PRN PRN Reason: Pain Score 1-10/Temp > 100.7 F Last Admin: 12/11/19 04:00 Dose: 650 mg Documented by: Al Hydroxide/Mg Hydroxide (Mag Hydrox/Al Hydrox/Simeth 30 Ml Udc) 30 ml PO Q6H PRN PRN PRN Reason: Gastric Burning Albuterol Sulfate (Albuterol 2.5 Mg/3 Ml Vial.Neb.) 2.5 mg INHALATION Q2H PRN PRN PRN Reason: sob/wheezing Albuterol/Ipratropium (Ipratropium/Albuterol Sulfate 3 Ml Ampul.Neb) 3 ml INHALATION Q4HWA.RT ON LICENSE OF [facility] Last Admin: 12/11/19 07:26 Dose: 3 ml Documented by: Allopurinol (Allopurinol 100 Mg Tablet) 100 mg PO DAILY ON LICENSE OF [facility] Last Admin: 12/10/19 10:21 Dose: 100 mg Documented by: Azelastine HCl (Azelastine Hcl Nasal.Sry) 2 spray NASAL BID ON LICENSE OF [facility] Last Admin: 12/10/19 22:25 Dose: 2 spray Documented by: Bisacodyl (Bisacodyl 5 Mg Tablet) 10 mg PO DAILY PRN PRN PRN Reason: Constipation Budesonide (Budesonide Respules 0.5 Mg/2 Ml Ampul.Neb.) 0.5 mg INHALATION Q12H.RT ON LICENSE OF [facility] Last Admin: 12/11/19 07:26 Dose: 0.5 mg Documented by: Dextrose (Dextrose 50%-Water 25 Gm/50 Ml Disp.Syrin) 0 gm IV X1 PRN; Protocol PRN Reason: Hypoglycemia Flecainide Acetate (Flecainide 100 Mg Tablet) 50 mg PO BID ON LICENSE OF [facility] Last Admin: 12/10/19 22:17 Dose: 50 mg Documented by: Furosemide (Furosemide 20 Mg/2 Ml Vial) 20 mg IV BID@1000,1800 ON LICENSE OF [facility] Last Admin: 12/10/19 23:25 Dose: 20 mg Documented by: Glucagon (Glucagon 1 Mg/Ml Syringe) 1 mg IM .X1 PRN PRN Reason: Hypoglycemia Guaifenesin (Guaifenesin 1,200 Mg Tablet) 1,200 mg PO BID ON LICENSE OF [facility] Last Admin: 12/10/19 22:15 Dose: 1,200 mg Documented by: Heparin Sodium (Porcine) (Heparin Injection (Vial) 5,000 Unit/Ml Vial) 0 unit IV UD PRN; Protocol PRN Reason: dose adjustment Sodium Chloride () 250 mls @ 15 mls/hr IV .[id number] PRN PRN Reason: Saline Flush Last Infusion: 12/10/19 16:13 Dose: 0 mls/hr Documented by: Sodium Chloride () 250 mls @ 15 mls/hr IV .[id number] PRN PRN Reason: Additional IVPB Infusion Vancomycin IV Pharmacy to Dose (1 ea/ Sodium Chloride) 500 mls @ 250 mls/hr IV PRN PRN; Protocol PRN Reason: Rx to Dose Pantoprazole Sodium 40 mg/ (Sodium Chloride) 110 mls @ 330 mls/hr IV Q12 ON LICENSE OF [facility] Last Infusion: 12/11/19 00:30 Dose: Infused Documented by: Heparin Sodium/Dextrose () 25,000 units in 250 mls @ 15 mls/hr IV .[id number] ON LICENSE OF [facility]; Protocol Last Titration: 12/10/19 10:12 Dose: 11 mls/hr Documented by: Vancomycin HCl 1,250 mg/ (Sodium Chloride) 275 mls @ 167 mls/hr IV Q24H ON LICENSE OF [facility] Last Infusion: 12/11/19 06:49 Dose: Infused Documented by: Cefepime HCl 2 gm/ Sodium (Chloride) 100 mls @ 200 mls/hr IV Q24 ON LICENSE OF [facility] Last Infusion: 12/10/19 16:12 Dose: Infused Documented by: Insulin Human Lispro (Insulin Lispro 100 Unit/Ml Insuln.Pen) 0 unit SC ACHS ON LICENSE OF [facility]; Protocol Last Admin: 12/11/19 07:02 Dose: Not Given Documented by: Levothyroxine Sodium (Levothyroxine 25 Mcg Tablet) 25 mcg PO DAILY@0600 ON LICENSE OF [facility] Last Admin: 12/11/19 07:03 Dose: 25 mcg Documented by: Montelukast Sodium (Montelukast 10 Mg Tablet) 10 mg PO QHS ON LICENSE OF [facility] Last Admin: 12/10/19 22:16 Dose: 10 mg Documented by: Ondansetron HCl (Ondansetron 4 Mg/2 Ml Vial) 4 mg IV Q8H PRN PRN PRN Reason: NAUSEA/VOMITING Oxycodone HCl (Oxycodone 5 Mg Tablet) 5 mg PO Q4H PRN PRN PRN Reason: Pain Score 4-7 Last Admin: 12/10/19 22:15 Dose: 5 mg Documented by: Polyethylene Glycol (Polyethylene Glycol 3350 17 Gm Packet) 17 gm PO DAILY ON LICENSE OF [facility] Last Admin: 12/10/19 10:16 Dose: 17 gm Documented by: Prochlorperazine Edisylate (Prochlorperazine 10 Mg/2 Ml Vial) 10 mg IV Q6H PRN PRN PRN Reason: Nausea/Vomiting Last Admin: 12/11/19 00:21 Dose: 10 mg Documented by: Senna/Docusate Sodium (Senna/Docusate Sodium 1 Tablet) 2 tablet PO BID PRN PRN PRN Reason: Constipation Sodium Chloride (0.9% Saline Lock 10 Ml Syringe) 10 - 40 ml IV UD PRN PRN Reason: SALINE FLUSH Last Admin: 12/10/19 16:01 Dose: 10 ml Documented by: SHOBHA Vital Signs/Narrative: Vital Signs Temp Pulse Resp BP Pulse Ox 12/11/19 07:04 100.4 F H 93 27 H 118/62 94 12/11/19 06:00 92 Medical Necessity - Tobacco Use Smoking Status: Former smoker Assessment/Plan All Active Problems (Last Reviewed 12/09/19 @ 04:[address] Lul Mazariegos MD) COPD with acute exacerbation (Acute) Septic shock (Acute) Septic shock (Acute) Shortness of breath (Acute) Asthma (Acute) ALEXYS (acute kidney injury) (Acute) 1. Septic shock secondary to right lower lobe pneumonia, resolved Blood pressures are much better. Initial blood cultures are negative. Second set of blood cultures are pending Continue on IV vancomycin 2. MRSA/Pseudomonas RLL pneumonia, on IV vancomycin and IV cefepime Continues to spike fevers Sputum cultures on 12/09/19 growing gram-negative eli, possible Pseudomonas History of Pseudomonas aeruginosa. Covid 19 PCR negative ID following 2. Acute hypoxic respiratory insufficiency secondary to #2, Continue treatment for pneumonia Wean off for SPO2 more than 94% 3. Acute kidney injury, prerenal likely secondary to #1, slowly improving Admitting creatinine is 2.14, baseline creatinine is 1.4 Off lisinopril. We will repeat blood work in a.m. 4. Acute on chronic anemia, hemoglobin from 10.3-7.9, repeat hemoglobin is 8.4 No signs of acute blood loss, will continue to trend 5. Hypertension, BPs are improved. Patient was in septic shock on admission Continue to hold lisinopril, Cardizem We will slowly resume if improved 6. Hypothyroidism, continue on levothyroxine 7. Paroxysmal atrial fibrillation, in normal sinus rhythm, new on flecainide Continue to hold Cardizem on account of recent shock Continue on heparin drip 8. DVT prophylaxis?on heparin drip Inpatient E&M: [id number] [facility] L2
[2019-12-11 08:22] LABS: Lymphocyte 10 % (19-41); Monocyte 3 % (0-10); Neutrophil-Band 6 % (0-5); Neutrophil-Segmented 81 % (47-70); Total Cells Counted 100 (MANUAL DIFF)
[2019-12-11 08:23] LABS: Hypochromasia RARE; Platelet Estimate ADEQUATE (ADEQ)
[2019-12-11 08:24] LABS: Absolute Lymphocyte Count 1.04 X10^3/uL (0.83-4.51); Absolute Neutrophil Count 9.1 X10^3/uL (2.0-7.7)
[2019-12-11 09:08] LABS: International Normalized Ratio 1.3; Prothrombin Time (Protime)PT. 15.6 SECONDS (11.7-14.9)
[2019-12-11 09:09] LABS: Partial Thromboplast Time 49.1 Seconds (24.1-36.2)
[2019-12-11] MEDS: Allopurinol 100 MG Tablet PO (09:44)
[2019-12-11] MEDS: guaiFENesin 1,200 MG Tablet 1200 MG PO ×2 (09:44→22:21)
[2019-12-11] MEDS: Azelastine HCl NASAL.SRY 2 SPRAY NASAL ×2 (09:44→22:21)
[2019-12-11] MEDS: Furosemide 20 MG/2 ML VIAL IV (09:44)
[2019-12-11] MEDS: HEPARIN/D5w 25,000 UNITS 25,000 UNITS/250 ML IV.SOLN. 12 UNITS IV (09:44)
[2019-12-11] MEDS: Flecainide 100 MG Tablet 50 MG PO ×2 (09:44→22:22)
[2019-12-11] MEDS: Polyethylene Glycol 3350 17 GM PACKET PO (09:44)
[2019-12-11] MEDS: Heparin Injection (Vial) 5,000 UNIT/ML VIAL IV ×2 (09:44→20:02)
[2019-12-11] MEDS: oxyCODONE 5 MG Tablet PO ×3 (09:45→22:24)
[2019-12-11 14:26] LABS: Bedside Glucose 113 mg/dL (70-110)
[2019-12-11 14:29] LABS: Pathologist Review Reviewed
--- NOTE | 2019-12-11 16:51 | PN.ID_ITS ---
Patient Problems: Active and Suspected Problems (Last Reviewed 12/09/19 @ 04:[address] Lul Mazariegos MD) COPD with acute exacerbation (Acute) Septic shock (Acute) Septic shock (Acute) Shortness of breath (Acute) Asthma (Acute) ALEXYS (acute kidney injury) (Acute) Subjective: High fever last night, but feeling better this AM. Cough and dyspnea improved. - Physical Exam Vitals/I&O's: Vital Signs Temp Pulse Resp BP Pulse Ox 101 F H 101 H 20 H 107/73 97 12/11/19 12:00 12/11/19 15:13 12/11/19 15:13 12/11/19 12:00 12/11/19 12:00 Oxygen Flow Rate (L/min) 2.5 Oxygen Delivery Method Nasal Cannula Weight: 111.6 kg Body Mass Index (BMI) 45.8 Intake and Output for Last 24 Hours 12/09/19 12/10/19 12/11/19 23:59 23:59 23:59 Intake Total 7232.32 / 7232.32 1046.67 / 1046.67 1044.08 / 1044.08 Output Total 1825 / 1825 700 / 700 800 / 800 Balance 5407.32 / 5407.32 346.67 / 346.67 244.08 / 244.08 General: Alert, Cooperative, No apparent distress Lungs: Rhonchi Cardiovascular: Regular rate, Regular Rhythm Abdomen: Soft, Non Tender, Non-Distended Skin: No rashes Microbiology Past 72 Hours 12/09/19 07:55 Sputum, Expectorated/Coughed Gram Stain - Final 12/09/19 07:55 Sputum, Expectorated/Coughed Respiratory Culture - Final Pseudomonas aeroginosa Meth. resistant Staph. aureus 12/08/19 23:00 Blood Culture (Wb) - Arm Left Blood Culture - Preliminary No growth in 48 hours. 12/08/19 22:30 Blood Culture (Wb) - Anticubital Left Blood Culture - Preliminary No growth in 48 hours. 12/09/19 00:30 Urine, Clean Catch Urine Culture - Final Mixed Gram Pos & Gram Neg Org 12/09/19 18:50 Urine, Clean Catch Legionella Antigen - Final 12/09/19 18:50 Urine, Clean Catch Streptococcus pneumoniae Antigen (M - Final 12/08/19 23:15 Mucosa - Nasopharyngeal Respiratory Panel (PCR) - Final Laboratory Results 12/10/19 17:42: POC Glucose 102 12/10/19 17:43: APTT 55.5 H 12/10/19 23:18: POC Glucose 118 H 12/11/19 07:00: POC Glucose 120 H 12/11/19 07:12: WBC 10.4, RBC 2.86 L, Hgb 8.4 L, Hct 27.9 L, MCV 97.6, MCH 29.4, MCHC 30.1 L, RDW Std Deviation 51.3 H, RDW Coeff of Lanre 14.3, Plt Count 280, MPV 9.9, Neut % (Auto) Not Reportable, Absolute Neuts (auto) 9.1 H, Absolute Lymphs (auto) 1.04, Total Counted 100, Neutrophils % (Manual) 81 H, Band Neutrophils % 6 H, Lymphocytes % (Manual) 10 L, Monocytes % (Manual) 3, Diff Path Review Reviewed, Platelet Estimate ADEQUATE, Hypochromasia RARE 12/11/19 07:12: Sodium 138, Potassium 3.8, Chloride 108 H, Carbon Dioxide 22.0, Anion Gap 8, BUN 21 H, Creatinine 1.66 H, Estim Creat Clear Calc 25.50, Est GFR (MDRD) Af Amer 40 L, Est GFR (MDRD) Non-Af 33 L, BUN/Creatinine Ratio 12.7, Glucose 119 H, Calcium 8.2 L, Total Bilirubin 0.40, AST 11 L, ALT 12 L, Alkaline Phosphatase 77, Total Protein 6.7, Albumin 2.1 L, Globulin 4.6 H, Albumin/Globulin Ratio 0.5 L 12/11/19 08:34: PT 15.6 H, INR 1.3, APTT 49.1 H 12/11/19 14:23: POC Glucose 113 H Current Medications Acetaminophen (Acetaminophen 325 Mg Tablet) 650 mg PO Q6H PRN PRN PRN Reason: Pain Score 1-10/Temp > 100.7 F Last Admin: 12/11/19 12:13 Dose: 650 mg Documented by: Al Hydroxide/Mg Hydroxide (Mag Hydrox/Al Hydrox/Simeth 30 Ml Udc) 30 ml PO Q6H PRN PRN PRN Reason: Gastric Burning Albuterol Sulfate (Albuterol 2.5 Mg/3 Ml Vial.Neb.) 2.5 mg INHALATION Q2H PRN PRN PRN Reason: sob/wheezing Albuterol/Ipratropium (Ipratropium/Albuterol Sulfate 3 Ml Ampul.Neb) 3 ml INHALATION Q4HWA.RT [facility] Last Admin: 12/11/19 15:13 Dose: 3 ml Documented by: Allopurinol (Allopurinol 100 Mg Tablet) 100 mg PO DAILY [facility] Last Admin: 12/11/19 09:44 Dose: 100 mg Documented by: Azelastine HCl (Azelastine Hcl Nasal.Sry) 2 spray NASAL BID [facility] Last Admin: 12/11/19 09:44 Dose: 2 spray Documented by: Bisacodyl (Bisacodyl 5 Mg Tablet) 10 mg PO DAILY PRN PRN PRN Reason: Constipation Budesonide (Budesonide Respules 0.5 Mg/2 Ml Ampul.Neb.) 0.5 mg INHALATION Q12H.RT [facility] Last Admin: 12/11/19 07:26 Dose: 0.5 mg Documented by: Dextrose (Dextrose 50%-Water 25 Gm/50 Ml Disp.Syrin) 0 gm IV X1 PRN; Protocol PRN Reason: Hypoglycemia Flecainide Acetate (Flecainide 100 Mg Tablet) 50 mg PO BID [facility] Last Admin: 12/11/19 09:44 Dose: 50 mg Documented by: Furosemide (Furosemide 20 Mg/2 Ml Vial) 20 mg IV BID@1000,1800 [facility] Last Admin: 12/11/19 09:44 Dose: 20 mg Documented by: Glucagon (Glucagon 1 Mg/Ml Syringe) 1 mg IM .X1 PRN PRN Reason: Hypoglycemia Guaifenesin (Guaifenesin 1,200 Mg Tablet) 1,200 mg PO BID [facility] Last Admin: 12/11/19 09:44 Dose: 1,200 mg Documented by: Heparin Sodium (Porcine) (Heparin Injection (Vial) 5,000 Unit/Ml Vial) 0 unit IV UD PRN; Protocol PRN Reason: dose adjustment Last Admin: 12/11/19 09:44 Dose: 1,000 unit Documented by: Sodium Chloride () 250 mls @ 15 mls/hr IV .[id number] PRN PRN Reason: Saline Flush Last Infusion: 12/10/19 16:13 Dose: 0 mls/hr Documented by: Sodium Chloride () 250 mls @ 15 mls/hr IV .[id number] PRN PRN Reason: Additional IVPB Infusion Vancomycin IV Pharmacy to Dose (1 ea/ Sodium Chloride) 500 mls @ 250 mls/hr IV PRN PRN; Protocol PRN Reason: Rx to Dose Pantoprazole Sodium 40 mg/ (Sodium Chloride) 110 mls @ 330 mls/hr IV Q12 [facility] Last Infusion: 12/11/19 12:35 Dose: Infused Documented by: Heparin Sodium/Dextrose () 25,000 units in 250 mls @ 15 mls/hr IV .[id number] [facility]; Protocol Last Admin: 12/11/19 12:12 Dose: Not Given Documented by: Vancomycin HCl 1,250 mg/ (Sodium Chloride) 275 mls @ 167 mls/hr IV Q24H [facility] Last Infusion: 12/11/19 06:49 Dose: Infused Documented by: Cefepime HCl 2 gm/ Sodium (Chloride) 100 mls @ 200 mls/hr IV Q12 [facility] Last Admin: 12/11/19 15:23 Dose: Not Given Documented by: Insulin Human Lispro (Insulin Lispro 100 Unit/Ml Insuln.Pen) 0 unit SC ACHS [facility]; Protocol Last Admin: 12/11/19 14:25 Dose: Not Given Documented by: Levothyroxine Sodium (Levothyroxine 25 Mcg Tablet) 25 mcg PO DAILY@0600 [facility] Last Admin: 12/11/19 07:03 Dose: 25 mcg Documented by: Montelukast Sodium (Montelukast 10 Mg Tablet) 10 mg PO QHS [facility] Last Admin: 12/10/19 22:16 Dose: 10 mg Documented by: Ondansetron HCl (Ondansetron 4 Mg/2 Ml Vial) 4 mg IV Q8H PRN PRN PRN Reason: NAUSEA/VOMITING Oxycodone HCl (Oxycodone 5 Mg Tablet) 5 mg PO Q4H PRN PRN PRN Reason: Pain Score 4-7 Last Admin: 12/11/19 09:45 Dose: 5 mg Documented by: Polyethylene Glycol (Polyethylene Glycol 3350 17 Gm Packet) 17 gm PO DAILY [facility] Last Admin: 12/11/19 09:44 Dose: 17 gm Documented by: Prochlorperazine Edisylate (Prochlorperazine 10 Mg/2 Ml Vial) 10 mg IV Q6H PRN PRN PRN Reason: Nausea/Vomiting Last Admin: 12/11/19 00:21 Dose: 10 mg Documented by: Senna/Docusate Sodium (Senna/Docusate Sodium 1 Tablet) 2 tablet PO BID PRN PRN PRN Reason: Constipation Sodium Chloride (0.9% Saline Lock 10 Ml Syringe) 10 - 40 ml IV UD PRN PRN Reason: SALINE FLUSH Last Admin: 12/10/19 16:01 Dose: 10 ml Documented by: Medical Necessity - Tobacco Use Smoking Status: Former smoker Route of nutrition/ use of supplements: [] Nutritional Intake: [] IV Site: [] Liz Catheter: [] - Assessment/Plan Antibiotics: [] Assessment/Plan: [] Active and Suspected Problems (Last Reviewed 12/09/19 @ 04:[address] Lul Mazariegos MD) COPD with acute exacerbation (Acute) Septic shock (Acute) Septic shock (Acute) Shortness of breath (Acute) Asthma (Acute) ALEXYS (acute kidney injury) (Acute) Sputum again with staph and pseudomonas. Cont vanc and cefepime. Overall much improved and out of icu. Still high fever intermittently. ALEXYS improved. Covid neg. Will follow
[2019-12-11 17:00] LABS: Bedside Glucose 116 mg/dL (70-110)
[2019-12-11 19:10] LABS: Partial Thromboplast Time 53.4 Seconds (24.1-36.2)
[2019-12-11] MEDS: Montelukast 10 MG Tablet PO (22:21)
[2019-12-11] MEDS: Insulin Lispro 100 UNIT/ML INSULN.PEN SC (22:23)
[2019-12-11 22:36] LABS: Bedside Glucose 170 mg/dL (70-110)
[2019-12-12] VITALS (27 sets, daily range): BP systolic 92–141; BP diastolic 51–102; PULSE 24–109; RESP 12–28; TEMP 37.1–38.9; O2SAT 92–100
[2019-12-12 02:09] LABS: Absolute Lymphocyte Count 0.83 X10^3/uL (0.83-4.51); Absolute Neutrophil Count 6.8 X10^3/uL (2.0-7.7); Basophil# 0.01 X10^3/uL; Basophil% 0.1 % (0-1); Eosinophil# 0.11 X10^3/uL; Eosinophils% 1.3 % (0-5); Hematocrit 25.8 % (37-47); Hemoglobin 7.7 g/dL (12.0-15.0); Lymphocyte # 0.83 X10^3/ul (4.0); Lymphocyte % 9.7 % (19-41); Mean Corp Hgb Conc 29.8 g/dL (32-36); Mean Corpuscular Hgb 29.2 pg (27.0-32.0); Mean Corpuscular Volume 97.7 fL (81-99); Mean Platelet Vol. 9.7 fl (6.2-12.0); Monocyte# 0.75 X10^3/uL; Monocyte% 8.8 % (0-10); NRBC Flagged by Analyzer 0 % (0-5); Neutrophil # 6.76 X10^3/uL (2.7-7.7); Neutrophil % 79.4 % (47-70); Platelet Count 262 K/mm3 (150-450); RBC Distribution Width CV 14.5 % (11.6-14.6); RBC Distribution Width SD 51.1 fl (35.1-43.9); Red Blood Count 2.64 M/mm3 (4.2-5.4); White Blood Count 8.5 K/mm3 (4.4-11.0)
[2019-12-12 02:19] LABS: Partial Thromboplast Time 68.8 Seconds (24.1-36.2)
[2019-12-12 02:25] LABS: ALB/GLOB Ratio 0.4 RATIO (0.9-2.4); AST(SGOT) 8 U/L (15-37); Alanine Aminotransfer ALT/SGPT 14 U/L (13-56); Alkaline Phosphatase 76 U/L (45-117); Anion Gap 6 (5-15); BUN 25 mg/dL (7-18); BUN/Creat Ratio 13.9 RATIO (10-20); Calcium,Total 8.6 mg/dL (8.5-10.1); Chloride 109 mmol/L (98-107); EST Glomerular Filtration Rate 30 mL/min (>60); Est Glom Filt Rate - Afr Amer 36 mL/min (>60); Estimated Creatinine Clearance 23.51 ml/min; Globulin 4.7 g/dL (2.2-4.2); Glucose 115 mg/dL (74-106); Potassium 3.8 mmol/L (3.5-5.1); Protein, Total 6.7 g/dL (6.4-8.2); Sodium Level 137 mmol/L (136-145)
[2019-12-12] MEDS: oxyCODONE 5 MG Tablet PO ×3 (03:19→13:37)
--- NOTE | 2019-12-12 03:25 | PHA.PHARE_ITS ---
Consult Pharmacy has been consulted to manage selected antiobiotic: Vancomycin Type of Consult: Follow-up Labs: Sodium 137 mmol/L (136-145) 12/12/19 02:00 Potassium 3.8 mmol/L (3.5-5.1) 12/12/19 02:00 Chloride 109 mmol/L (98-107) H 12/12/19 02:00 Carbon Dioxide 22.0 mmol/L (21.0-32.0) 12/12/19 02:00 Anion Gap 6 (5-15) 12/12/19 02:00 BUN 25 mg/dL (7-18) H 12/12/19 02:00 Creatinine 1.80 mg/dL (0.55-1.02) H 12/12/19 02:00 Est GFR (MDRD) Af Amer 36 mL/min (>60) L 12/12/19 02:00 Est GFR (MDRD) Non-Af 30 mL/min (>60) L 12/12/19 02:00 BUN/Creatinine Ratio 13.9 RATIO (10-20) 12/12/19 02:00 Glucose 115 mg/dL (74-106) H 12/12/19 02:00 Vancomycin Trough 20.0 ug/mL (5.0-15.0) H 12/12/19 02:00 Microbiology: Microbiology 12/10/19 23:45 Blood Culture (Wb) - Anticubital Right Bacteria Detection (PCR) - Preliminary Coag Negative Staph 12/10/19 23:45 Blood Culture (Wb) - Anticubital Right Blood Culture - Preli minary 12/09/19 07:55 Sputum, Expectorated/Coughed Gram Stain - Final 12/09/19 07:55 Sputum, Expectorated/Coughed Respiratory Culture - Final Pseudomonas aeroginosa Meth. resistant Staph. aureus 12/08/19 23:00 Blood Culture (Wb) - Arm Left Blood Culture - Preliminary No growth in 48 hours. 12/08/19 22:30 Blood Culture (Wb) - Anticubital Left Blood Culture - Preliminary No growth in 48 hours. 12/09/19 00:30 Urine, Clean Catch Urine Culture - Final Mixed Gram Pos & Gram Neg Org 12/09/19 18:50 Urine, Clean Catch Legionella Antigen - Final 12/09/19 18:50 Urine, Clean Catch Streptococcus pneumoniae Antigen (M - Final 12/08/19 23:15 Mucosa - Nasopharyngeal Respiratory Panel (PCR) - Final Goal Trough: 15-20 mcg/mL Pharmacy Plan for Drug Dosing: Pharmacy Service will continue to monitor and adjust dosing as required. TROUGH 20 NEXT TROUGH 12/13 PER BORDERLINE HIGH TROUGH Follow-Up Labs: Trough Vancomycin Labs to be done on [date and time ordered]: 12/13 @ 0239
[2019-12-12] MEDS: HEPARIN/D5w 25,000 UNITS 25,000 UNITS/250 ML IV.SOLN. 13 UNITS IV (05:47)
[2019-12-12] MEDS: Levothyroxine 25 MCG TABLET PO (06:42)
[2019-12-12 06:50] LABS: Bedside Glucose 110 mg/dL (70-110)
[2019-12-12] MEDS: Ipratropium/Albuterol Sulfate 3 ML AMPUL.NEB INHALATION ×4 (08:33→20:10)
[2019-12-12] MEDS: Budesonide Respules 0.5 MG/2 ML AMPUL.NEB. INHALATION ×2 (08:33→20:10)
[2019-12-12] MEDS: Flecainide 100 MG Tablet 50 MG PO ×2 (09:26→21:10)
[2019-12-12] MEDS: Allopurinol 100 MG Tablet PO (09:26)
[2019-12-12] MEDS: Pantoprazole Sodium 40 MG Tablet PO ×2 (09:26→21:10)
[2019-12-12] MEDS: guaiFENesin 1,200 MG Tablet 1200 MG PO ×2 (09:27→21:10)
[2019-12-12] MEDS: Polyethylene Glycol 3350 17 GM PACKET PO (09:27)
[2019-12-12] MEDS: Azelastine HCl NASAL.SRY 2 SPRAY NASAL ×2 (09:27→21:10)
[2019-12-12] MEDS: Acetaminophen 325 MG Tablet 650 MG PO ×4 (09:29→22:21)
--- NOTE | 2019-12-12 11:11 | CASEMGMT ---
Patient has a Healthcare Power of Lumber Puller and a Healthcare Living Will on file at [facility]. Her sister, Eloisa is her Healthcare Power of Lumber Puller., Karlie GARCIA MSW
[2019-12-12] MEDS: Insulin Lispro 100 UNIT/ML INSULN.PEN SC (11:56)
[2019-12-12 12:00] LABS: Bedside Glucose 150 mg/dL (70-110)
--- NOTE | 2019-12-12 15:00 | PCM.PN.HOSP ---
Patient Problems: Active and Suspected Problems (Last Reviewed 12/09/19 @ 04:[address] Lul Mazariegos MD) COPD with acute exacerbation (Acute) Septic shock (Acute) Septic shock (Acute) Shortness of breath (Acute) Asthma (Acute) ALEXYS (acute kidney injury) (Acute) Reason for Visit: Follow-up on septic shock/RLL pneumonia Subjective: Patient seen and examined. She is still spiking fever. Her right sided pain is slightly better. Blood cultures growing coagulase negative staph. Her Hb appears to have dropped. No melena stools or obvious bleed anywhere. Objective: Physical exam: General: Alert, Oriented x3, Cooperative, on 3L of oxygen, morbidly obese HEENT: Atraumatic, PERRLA, EOMI, Normocephalic Neck: Supple, Trachea Midline, RIJ central line Lungs: Diminished breath sounds Cardiovascular: Normal S1, Normal S2, No murmurs, Tachycardic Abdomen: Bowel Sounds Present, Soft, Non Tender Extremities: No edema, Capillary Refill Less than 3 Seconds Skin: No rashes, No breakdown Musculoskeletal: No Tenderness to Palpation of Joints or Extremities Neurological: Cranial nerves II-XII grossly intact Psych/Mental Status: Normal Affect, Appropriate Vitals/I&O's: Vital Signs Temp Pulse Resp BP Pulse Ox 99.7 F H 92 24 H 99/55 L 98 12/12/19 13:47 12/12/19 13:47 12/12/19 13:47 12/12/19 13:47 12/12/19 13:47 Oxygen Flow Rate (L/min) 3 Oxygen Delivery Method Nasal Cannula Weight: 111.7 kg Body Mass Index (BMI) 45.8 Intake and Output for Last 24 Hours 12/10/19 12/11/19 12/12/19 23:59 23:59 23:59 Intake Total 1046.67 / 1046.67 2214.08 / 2214.08 793.88 / 793.88 Output Total 700 / 700 1550 / 1550 Balance 346.67 / 346.67 664.08 / 664.08 793.88 / 793.88 Microbiology Past 72 Hours 12/10/19 23:45 Blood Culture (Wb) - Anticubital Right Bacteria Detection (PCR) - Final Coag Negative Staph 12/10/19 23:45 Blood Culture (Wb) - Anticubital Right Blood Culture - Preliminary Coag Negative Staph 12/09/19 07:55 Sputum, Expectorated/Coughed Gram Stain - Final 12/09/19 07:55 Sputum, Expectorated/Coughed Respiratory Culture - Final Pseudomonas aeroginosa Meth. resistant Staph. aureus 12/08/19 23:00 Blood Culture (Wb) - Arm Left Blood Culture - Preliminary No growth in 48 hours. 12/08/19 22:30 Blood Culture (Wb) - Anticubital Left Blood Culture - Preliminary No growth in 48 hours. 12/09/19 00:30 Urine, Clean Catch Urine Culture - Final Mixed Gram Pos & Gram Neg Org 12/09/19 18:50 Urine, Clean Catch Legionella Antigen - Final 12/09/19 18:50 Urine, Clean Catch Streptococcus pneumoniae Antigen (M - Final 12/08/19 23:15 Mucosa - Nasopharyngeal Respiratory Panel (PCR) - Final Laboratory Results 12/11/19 16:53: POC Glucose 116 H 12/11/19 18:40: APTT 53.4 H 12/11/19 22:16: POC Glucose 170 H 12/12/19 02:00: WBC 8.5, RBC 2.64 L, Hgb 7.7 L, Hct 25.8 L, MCV 97.7, MCH 29.2, MCHC 29.8 L, RDW Std Deviation 51.1 H, RDW Coeff of Lanre 14.5, Plt Count 262, MPV 9.7, Immature Gran % (Auto) 0.700, Neut % (Auto) 79.4 H, Lymph % (Auto) 9.7 L, [place] % (Auto) 8.8, Eos % (Auto) 1.3, Baso % (Auto) 0.1, Absolute Neuts (auto) 6.8, Absolute Lymphs (auto) 0.83, Nucleated RBC % 0 12/12/19 02:00: Sodium 137, Potassium 3.8, Chloride 109 H, Carbon Dioxide 22.0, Anion Gap 6, BUN 25 H, Creatinine 1.80 H, Estim Creat Clear Calc 23.51, Est GFR (MDRD) Af Amer 36 L, Est GFR (MDRD) Non-Af 30 L, BUN/Creatinine Ratio 13.9, Glucose 115 H, Calcium 8.6, Total Bilirubin 0.30, AST 8 L, ALT 14, Alkaline Phosphatase 76, Total Protein 6.7, Albumin 2.0 L, Globulin 4.7 H, Albumin/Globulin Ratio 0.4 L 12/12/19 02:00: APTT 68.8 H 12/12/19 02:00: Vancomycin Trough 20.0 H 12/12/19 06:40: POC Glucose 110 12/12/19 08:20: APTT 57.0 H 12/12/19 08:20: Blood Type A POSITIVE, Antibody Screen NEGATIVE, Crossmatch See Detail 12/12/19 11:55: POC Glucose 150 H Current Medications Acetaminophen (Acetaminophen 325 Mg Tablet) 650 mg PO Q4H PRN PRN PRN Reason: TEMP > 100 Last Admin: 12/12/19 13:38 Dose: 650 mg Documented by: Al Hydroxide/Mg Hydroxide (Mag Hydrox/Al Hydrox/Simeth 30 Ml Udc) 30 ml PO Q6H PRN PRN PRN Reason: Gastric Burning Albuterol Sulfate (Albuterol 2.5 Mg/3 Ml Vial.Neb.) 2.5 mg INHALATION Q2H PRN PRN PRN Reason: sob/wheezing Albuterol/Ipratropium (Ipratropium/Albuterol Sulfate 3 Ml Ampul.Neb) 3 ml INHALATION Q4HWA.RT [facility] Last Admin: 12/12/19 11:03 Dose: 3 ml Documented by: Allopurinol (Allopurinol 100 Mg Tablet) 100 mg PO DAILY [facility] Last Admin: 12/12/19 09:26 Dose: 100 mg Documented by: Azelastine HCl (Azelastine Hcl Nasal.Sry) 2 spray NASAL BID [facility] Last Admin: 12/12/19 09:27 Dose: 2 spray Documented by: Bisacodyl (Bisacodyl 5 Mg Tablet) 10 mg PO DAILY PRN PRN PRN Reason: Constipation Budesonide (Budesonide Respules 0.5 Mg/2 Ml Ampul.Neb.) 0.5 mg INHALATION Q12H.RT [facility] Last Admin: 12/12/19 08:33 Dose: 0.5 mg Documented by: Dextrose (Dextrose 50%-Water 25 Gm/50 Ml Disp.Syrin) 0 gm IV X1 PRN; Protocol PRN Reason: Hypoglycemia Flecainide Acetate (Flecainide 100 Mg Tablet) 50 mg PO BID [facility] Last Admin: 12/12/19 09:26 Dose: 50 mg Documented by: Glucagon (Glucagon 1 Mg/Ml Syringe) 1 mg IM .X1 PRN PRN Reason: Hypoglycemia Guaifenesin (Guaifenesin 1,200 Mg Tablet) 1,200 mg PO BID [facility] Last Admin: 12/12/19 09:27 Dose: 1,200 mg Documented by: Heparin Sodium (Porcine) (Heparin Injection (Vial) 5,000 Unit/Ml Vial) 0 unit IV UD PRN; Protocol PRN Reason: dose adjustment Last Admin: 12/11/19 20:02 Dose: 1,000 unit Documented by: Sodium Chloride () 250 mls @ 15 mls/hr IV .[id number] PRN PRN Reason: Saline Flush Last Infusion: 12/10/19 16:13 Dose: 0 mls/hr Documented by: Sodium Chloride () 250 mls @ 15 mls/hr IV .[id number] PRN PRN Reason: Additional IVPB Infusion Vancomycin IV Pharmacy to Dose (1 ea/ Sodium Chloride) 500 mls @ 250 mls/hr IV PRN PRN; Protocol PRN Reason: Rx to Dose Heparin Sodium/Dextrose () 25,000 units in 250 mls @ 15 mls/hr IV .[id number] [facility]; Protocol Last Titration: 12/12/19 10:16 Dose: 13 mls/hr Documented by: Vancomycin HCl 1,250 mg/ (Sodium Chloride) 275 mls @ 167 mls/hr IV Q24H [facility] Last Infusion: 12/12/19 04:55 Dose: Infused Documented by: Cefepime HCl 2 gm/ Sodium (Chloride) 100 mls @ 200 mls/hr IV Q12 [facility] Last Infusion: 12/12/19 10:17 Dose: Infused Documented by: Insulin Human Lispro (Insulin Lispro 100 Unit/Ml Insuln.Pen) 0 unit SC ACHS [facility]; Protocol Last Admin: 12/12/19 11:56 Dose: 1 units Documented by: Levothyroxine Sodium (Levothyroxine 25 Mcg Tablet) 25 mcg PO DAILY@0600 [facility] Last Admin: 12/12/19 06:42 Dose: 25 mcg Documented by: Montelukast Sodium (Montelukast 10 Mg Tablet) 10 mg PO QHS [facility] Last Admin: 12/11/19 22:21 Dose: 10 mg Documented by: Ondansetron HCl (Ondansetron 4 Mg/2 Ml Vial) 4 mg IV Q8H PRN PRN PRN Reason: NAUSEA/VOMITING Oxycodone HCl (Oxycodone 5 Mg Tablet) 5 mg PO Q4H PRN PRN PRN Reason: Pain Score 4-7 Last Admin: 12/12/19 13:37 Dose: 5 mg Documented by: Pantoprazole Sodium (Pantoprazole Sodium 40 Mg Tablet) 40 mg PO BID [facility] Last Admin: 12/12/19 09:26 Dose: 40 mg Documented by: Polyethylene Glycol (Polyethylene Glycol 3350 17 Gm Packet) 17 gm PO DAILY [facility] Last Admin: 12/12/19 09:27 Dose: 17 gm Documented by: Prochlorperazine Edisylate (Prochlorperazine 10 Mg/2 Ml Vial) 10 mg IV Q6H PRN PRN PRN Reason: Nausea/Vomiting Last Admin: 12/11/19 00:21 Dose: 10 mg Documented by: Senna/Docusate Sodium (Senna/Docusate Sodium 1 Tablet) 2 tablet PO BID PRN PRN PRN Reason: Constipation Sodium Chloride (0.9% Saline Lock 10 Ml Syringe) 10 - 40 ml IV UD PRN PRN Reason: SALINE FLUSH Last Admin: 12/10/19 16:01 Dose: 10 ml Documented by: STROKE Vital Signs/Narrative: Vital Signs Temp Pulse Resp BP Pulse Ox 12/12/19 13:47 99.7 F H 92 24 H 99/55 L 98 12/12/19 13:39 100 12/12/19 13:32 100.4 F H 92 28 H 109/58 L 99 12/12/19 13:00 100.4 F H 95 23 H 129/67 H 94 12/12/19 12:00 100.7 F H 94 25 H 116/102 H 94 12/12/19 11:25 100.9 F H 104 H 25 H 92/51 L 93 12/12/19 11:04 24 L 24 H Medical Necessity - Tobacco Use Smoking Status: Former smoker Assessment/Plan All Active Problems (Last Reviewed 12/09/19 @ 04:[address] Lul Mazariegos MD) COPD with acute exacerbation (Acute) Septic shock (Acute) Septic shock (Acute) Shortness of breath (Acute) Asthma (Acute) ALEXYS (acute kidney injury) (Acute) 1. Septic shock/coag negative bacteremia secondary to right lower lobe pneumonia, resolved Blood cultures growing coagulase negative staph aureus Continue on IV vancomycin and cefepime 2. MRSA/Pseudomonas RLL pneumonia, on IV vancomycin and IV cefepime Continues to spike fevers Sputum cultures on 12/09/19 growing Pseudomonas/MRSA History of Pseudomonas aeruginosa. Covid 19 PCR negative ID following 2. Acute hypoxic respiratory insufficiency secondary to #2, slightly worse Continue treatment for pneumonia. Discussed with pulmonology, will start patient on vest physiotherapy to see if that helps. Wean off for SPO2 more than 94% 3. Acute kidney injury, prerenal likely secondary to #1, slowly improving Admitting creatinine is 2.14, baseline creatinine is 1.4 Off lisinopril. We will repeat blood work in a.m. 4. Acute on chronic anemia, hemoglobin from 10.3-7.9, repeat hemoglobin is 7.7 No signs of acute blood loss, Suspect ongoing loss either GI or due to frequent blood draws Due to worsening clinical picture, will empirically transfuse 1 unit of pRBCs Repeat HH later and CBCD in am 5. Hypertension, BPs are improved. Patient was in septic shock on admission Continue to hold lisinopril, Cardizem We will slowly resume if improved 6. Hypothyroidism, continue on levothyroxine 7. Paroxysmal atrial fibrillation, in normal sinus rhythm, new on flecainide Continue to hold Cardizem on account of recent shock Continue on heparin drip 8. DVT prophylaxis?on heparin drip Inpatient E&M: [id number] [facility] L[facility]
--- NOTE | 2019-12-12 15:55 | PCM.PN.PUL ---
Patient Problems: Active and Suspected Problems (Last Reviewed 12/09/19 @ 04:[address] Lul Mazariegos MD) COPD with acute exacerbation (Acute) Septic shock (Acute) Septic shock (Acute) Shortness of breath (Acute) Asthma (Acute) ALEXYS (acute kidney injury) (Acute) Subjective: Patient did well overnight. Patient reported that she felt subjectively improved compared to previous. Patient was reporting some cough with production and states her chest pain was improved compared to previous. - Physical Exam Vitals/I&O's: Vital Signs Temp Pulse Resp BP Pulse Ox 38.6 C H 87 21 H 101/56 L 98 12/12/19 15:00 12/12/19 15:00 12/12/19 15:00 12/12/19 15:00 12/12/19 15:00 Oxygen Flow Rate (L/min) 3 Oxygen Delivery Method Nasal Cannula Weight: 111.7 kg Body Mass Index (BMI) 45.8 Intake and Output for Last 24 Hours 12/10/19 12/11/19 12/12/19 23:59 23:59 23:59 Intake Total 1046.67 / 1046.67 2214.08 / 2214.08 793.88 / 793.88 Output Total 700 / 700 1550 / 1550 Balance 346.67 / 346.67 664.08 / 664.08 793.88 / 793.88 General: Alert, Oriented x3, Cooperative, No apparent distress, - - Morbidly obese. Speaking in full sentences. HEENT: Atraumatic, PERRLA, EOMI, - - No scleral icterus or injection noted Oral: Moist Mucosa, No Gingival or Mucosal Lesions/ Ulcerations Neck: Supple, No JVD, No Nodes, Trachea Midline Lungs: No wheeze, No rales, Diminished, Rhonchi - Right base, - - Better inhalation compared to previous Cardiovascular: Regular rate, Regular Rhythm, Normal S1, Normal S2, No murmurs, No rub noted, No Gallop Abdomen: Bowel Sounds Present, Soft, Non Tender, Non-Distended, Obese Extremities: No clubbing, No cyanosis, Edema - Trace Skin: No rashes, No breakdown Musculoskeletal: No Tenderness to Palpation of Joints or Extremities Lymphatic: No Cervical, Supraclavicular, or Inguinal Adenopathy Neurological: Cranial nerves II-XII grossly intact, Neuro grossly intact, Motor Exam 5/5 strength throughout Psych/Mental Status: Alert and oriented to time, place, person, mood and affect Microbiology Past 72 Hours 12/10/19 23:45 Blood Culture (Wb) - Anticubital Right Bacteria Detection (PCR) - Final Coag Negative Staph 12/10/19 23:45 Blood Culture (Wb) - Anticubital Right Blood Culture - Preliminary Coag Negative Staph 12/09/19 07:55 Sputum, Expectorated/Coughed Gram Stain - Final 12/09/19 07:55 Sputum, Expectorated/Coughed Respiratory Culture - Final Pseudomonas aeroginosa Meth. resistant Staph. aureus 12/08/19 23:00 Blood Culture (Wb) - Arm Left Blood Culture - Preliminary No growth in 48 hours. 12/08/19 22:30 Blood Culture (Wb) - Anticubital Left Blood Culture - Preliminary No growth in 48 hours. 12/09/19 00:30 Urine, Clean Catch Urine Culture - Final Mixed Gram Pos & Gram Neg Org 12/09/19 18:50 Urine, Clean Catch Legionella Antigen - Final 12/09/19 18:50 Urine, Clean Catch Streptococcus pneumoniae Antigen (M - Final 12/08/19 23:15 Mucosa - Nasopharyngeal Respiratory Panel (PCR) - Final Laboratory Results 12/11/19 16:53: POC Glucose 116 H 12/11/19 18:40: APTT 53.4 H 12/11/19 22:16: POC Glucose 170 H 12/12/19 02:00: WBC 8.5, RBC 2.64 L, Hgb 7.7 L, Hct 25.8 L, MCV 97.7, MCH 29.2, MCHC 29.8 L, RDW Std Deviation 51.1 H, RDW Coeff of Lanre 14.5, Plt Count 262, MPV 9.7, Immature Gran % (Auto) 0.700, Neut % (Auto) 79.4 H, Lymph % (Auto) 9.7 L, [place] % (Auto) 8.8, Eos % (Auto) 1.3, Baso % (Auto) 0.1, Absolute Neuts (auto) 6.8, Absolute Lymphs (auto) 0.83, Nucleated RBC % 0 12/12/19 02:00: Sodium 137, Potassium 3.8, Chloride 109 H, Carbon Dioxide 22.0, Anion Gap 6, BUN 25 H, Creatinine 1.80 H, Estim Creat Clear Calc 23.51, Est GFR (MDRD) Af Amer 36 L, Est GFR (MDRD) Non-Af 30 L, BUN/Creatinine Ratio 13.9, Glucose 115 H, Calcium 8.6, Total Bilirubin 0.30, AST 8 L, ALT 14, Alkaline Phosphatase 76, Total Protein 6.7, Albumin 2.0 L, Globulin 4.7 H, Albumin/Globulin Ratio 0.4 L 12/12/19 02:00: APTT 68.8 H 12/12/19 02:00: Vancomycin Trough 20.0 H 12/12/19 06:40: POC Glucose 110 12/12/19 08:20: APTT 57.0 H 12/12/19 08:20: Blood Type A POSITIVE, Antibody Screen NEGATIVE, Crossmatch See Detail 12/12/19 11:55: POC Glucose 150 H Current Medications Acetaminophen (Acetaminophen 325 Mg Tablet) 650 mg PO Q4H PRN PRN PRN Reason: TEMP > 100 Last Admin: 12/12/19 13:38 Dose: 650 mg Documented by: Al Hydroxide/Mg Hydroxide (Mag Hydrox/Al Hydrox/Simeth 30 Ml Udc) 30 ml PO Q6H PRN PRN PRN Reason: Gastric Burning Albuterol Sulfate (Albuterol 2.5 Mg/3 Ml Vial.Neb.) 2.5 mg INHALATION Q2H PRN PRN PRN Reason: sob/wheezing Albuterol/Ipratropium (Ipratropium/Albuterol Sulfate 3 Ml Ampul.Neb) 3 ml INHALATION Q4HWA.RT [facility] Last Admin: 12/12/19 11:03 Dose: 3 ml Documented by: Allopurinol (Allopurinol 100 Mg Tablet) 100 mg PO DAILY [facility] Last Admin: 12/12/19 09:26 Dose: 100 mg Documented by: Azelastine HCl (Azelastine Hcl Nasal.Sry) 2 spray NASAL BID [facility] Last Admin: 12/12/19 09:27 Dose: 2 spray Documented by: Bisacodyl (Bisacodyl 5 Mg Tablet) 10 mg PO DAILY PRN PRN PRN Reason: Constipation Budesonide (Budesonide Respules 0.5 Mg/2 Ml Ampul.Neb.) 0.5 mg INHALATION Q12H.RT [facility] Last Admin: 12/12/19 08:33 Dose: 0.5 mg Documented by: Dextrose (Dextrose 50%-Water 25 Gm/50 Ml Disp.Syrin) 0 gm IV X1 PRN; Protocol PRN Reason: Hypoglycemia Flecainide Acetate (Flecainide 100 Mg Tablet) 50 mg PO BID [facility] Last Admin: 12/12/19 09:26 Dose: 50 mg Documented by: Glucagon (Glucagon 1 Mg/Ml Syringe) 1 mg IM .X1 PRN PRN Reason: Hypoglycemia Guaifenesin (Guaifenesin 1,200 Mg Tablet) 1,200 mg PO BID [facility] Last Admin: 12/12/19 09:27 Dose: 1,200 mg Documented by: Heparin Sodium (Porcine) (Heparin Injection (Vial) 5,000 Unit/Ml Vial) 0 unit IV UD PRN; Protocol PRN Reason: dose adjustment Last Admin: 12/11/19 20:02 Dose: 1,000 unit Documented by: Sodium Chloride () 250 mls @ 15 mls/hr IV .[id number] PRN PRN Reason: Saline Flush Last Infusion: 12/10/19 16:13 Dose: 0 mls/hr Documented by: Sodium Chloride () 250 mls @ 15 mls/hr IV .[id number] PRN PRN Reason: Additional IVPB Infusion Vancomycin IV Pharmacy to Dose (1 ea/ Sodium Chloride) 500 mls @ 250 mls/hr IV PRN PRN; Protocol PRN Reason: Rx to Dose Heparin Sodium/Dextrose () 25,000 units in 250 mls @ 15 mls/hr IV .[id number] [facility]; Protocol Last Titration: 12/12/19 10:16 Dose: 13 mls/hr Documented by: Vancomycin HCl 1,250 mg/ (Sodium Chloride) 275 mls @ 167 mls/hr IV Q24H [facility] Last Infusion: 12/12/19 04:55 Dose: Infused Documented by: Cefepime HCl 2 gm/ Sodium (Chloride) 100 mls @ 200 mls/hr IV Q12 [facility] Last Infusion: 12/12/19 10:17 Dose: Infused Documented by: Insulin Human Lispro (Insulin Lispro 100 Unit/Ml Insuln.Pen) 0 unit SC ACHS [facility]; Protocol Last Admin: 12/12/19 11:56 Dose: 1 units Documented by: Levothyroxine Sodium (Levothyroxine 25 Mcg Tablet) 25 mcg PO DAILY@0600 [facility] Last Admin: 12/12/19 06:42 Dose: 25 mcg Documented by: Montelukast Sodium (Montelukast 10 Mg Tablet) 10 mg PO QHS [facility] Last Admin: 12/11/19 22:21 Dose: 10 mg Documented by: Ondansetron HCl (Ondansetron 4 Mg/2 Ml Vial) 4 mg IV Q8H PRN PRN PRN Reason: NAUSEA/VOMITING Oxycodone HCl (Oxycodone 5 Mg Tablet) 5 mg PO Q4H PRN PRN PRN Reason: Pain Score 4-7 Last Admin: 12/12/19 13:37 Dose: 5 mg Documented by: Pantoprazole Sodium (Pantoprazole Sodium 40 Mg Tablet) 40 mg PO BID [facility] Last Admin: 12/12/19 09:26 Dose: 40 mg Documented by: Polyethylene Glycol (Polyethylene Glycol 3350 17 Gm Packet) 17 gm PO DAILY [facility] Last Admin: 12/12/19 09:27 Dose: 17 gm Documented by: Prochlorperazine Edisylate (Prochlorperazine 10 Mg/2 Ml Vial) 10 mg IV Q6H PRN PRN PRN Reason: Nausea/Vomiting Last Admin: 12/11/19 00:21 Dose: 10 mg Documented by: Senna/Docusate Sodium (Senna/Docusate Sodium 1 Tablet) 2 tablet PO BID PRN PRN PRN Reason: Constipation Sodium Chloride (0.9% Saline Lock 10 Ml Syringe) 10 - 40 ml IV UD PRN PRN Reason: SALINE FLUSH Last Admin: 12/10/19 16:01 Dose: 10 ml Documented by: Medical Necessity - Tobacco Use Smoking Status: Former smoker Assessment/Plan All Active Problems (Last Reviewed 12/09/19 @ 04:[address] Lul Mazariegos MD) COPD with acute exacerbation (Acute) Septic shock (Acute) Septic shock (Acute) Shortness of breath (Acute) Asthma (Acute) ALEXYS (acute kidney injury) (Acute) RECOMMENDATIONS: 1. Continue aggressive pain control 2. Continue scheduled bronchodilators and twice daily budesonide. Avoiding systemic steroids 3. Antibiotics per infectious disease 4. Initiate vest therapy to help with pulmonary toileting 5. Blood transfusion per hospitalist 6. Monitor H&H daily and transfuse if hemoglobin drops below 7 g/dL. 7. BiPAP rescue as needed IMPRESSIONS: 1. Septic shock secondary to probable drug-resistant right lower lobe pneumonia Patient with significant right lower lobe infiltrate. Patient has grown Pseudomonas and MRSA in the past, and appears to be growing this again. Patient has remained hemodynamically stable, but did require the need for BiPAP rescue overnight. Stressed to the patient the importance of aggressive pulmonary toileting. Patient is reporting significant improvement in chest pain related to the use of antibiotics. Will increase pulmonary toileting using a vest. Continue to hold home antihypertensives and diuretics until patient is more stable. 2. Anemia Patient's H&H went up slightly compared to yesterday. Would continue with heparin drip for now until condition stabilizes and it is clear that she will not require any interventions. Okay to continue with PPI twice daily for now. No indication for transfusion at this time. 3. Acute kidney injury Improving. Likely prerenal in etiology. Creatinine is improving with volume expansion. Continue to hold antihypertensives and diuretics. 4. History of moderate persistent asthma and steroid induced myopathy/history of organizing pneumonia The patient is currently maintaining appropriate oxygen saturations on room air but did have a high-grade fever and purulent sputum production. Therefore, we will continue broad-spectrum antimicrobials. CT of the chest is showing a significant right lower lobe pneumonia. Patient will likely need a follow-up CT scan to evaluate for a central obstruction.. Avoid systemic steroids, if possible. 5. History of lung nodules/GERD/paroxysmal atrial fibrillation/history of DVT/PE/anxiety/hypothyroidism/heart failure with preserved ejection fraction Complicates care, management, recovery and prognosis. Continue to hold home antihypertensives. Given anemia, will transition from Eliquis to continuous heparin infusion. TSH level was within normal limits. 6. Acute hypoxic respiratory failure secondary to #1 Patient with BiPAP rescue overnight. Patient likely has an element of obstructive sleep apnea and dense consolidation leading to decompensation. Fever curve is improving on current antibiotics. Continue with BiPAP rescue as necessary. Attempting to avoid systemic steroids secondary to a history of critical care neuropathy. Inpatient E&M: [id number] [facility] L2
--- NOTE | 2019-12-12 16:32 | PCM.PN.ID ---
Patient Problems: Active and Suspected Problems (Last Reviewed 12/09/19 @ 04:[address] Lul Mazariegos MD) COPD with acute exacerbation (Acute) Septic shock (Acute) Septic shock (Acute) Shortness of breath (Acute) Asthma (Acute) ALEXYS (acute kidney injury) (Acute) Subjective: Still with fever, dyspnea, and cough, but overall feeling better. - Physical Exam Vitals/I&O's: Vital Signs Temp Pulse Resp BP Pulse Ox 102.1 F H 102 H 24 H 128/55 H 100 12/12/19 15:47 12/12/19 15:50 12/12/19 15:50 12/12/19 15:47 12/12/19 15:47 Oxygen Flow Rate (L/min) 3 Oxygen Delivery Method Nasal Cannula Weight: 111.7 kg Body Mass Index (BMI) 45.8 Intake and Output for Last 24 Hours 12/10/19 12/11/19 12/12/19 23:59 23:59 23:59 Intake Total 1046.67 / 1046.67 2214.08 / 2214.08 793.88 / 793.88 Output Total 700 / 700 1550 / 1550 Balance 346.67 / 346.67 664.08 / 664.08 793.88 / 793.88 General: Alert, Cooperative, No apparent distress Lungs: Rhonchi Cardiovascular: Regular rate, Regular Rhythm Abdomen: Soft, Non Tender, Non-Distended Skin: No rashes Microbiology Past 72 Hours 12/10/19 23:45 Blood Culture (Wb) - Anticubital Right Bacteria Detection (PCR) - Final Coag Negative Staph 12/10/19 23:45 Blood Culture (Wb) - Anticubital Right Blood Culture - Preliminary Coag Negative Staph 12/09/19 07:55 Sputum, Expectorated/Coughed Gram Stain - Final 12/09/19 07:55 Sputum, Expectorated/Coughed Respiratory Culture - Final Pseudomonas aeroginosa Meth. resistant Staph. aureus 12/08/19 23:00 Blood Culture (Wb) - Arm Left Blood Culture - Preliminary No growth in 48 hours. 12/08/19 22:30 Blood Culture (Wb) - Anticubital Left Blood Culture - Preliminary No growth in 48 hours. 12/09/19 00:30 Urine, Clean Catch Urine Culture - Final Mixed Gram Pos & Gram Neg Org 12/09/19 18:50 Urine, Clean Catch Legionella Antigen - Final 12/09/19 18:50 Urine, Clean Catch Streptococcus pneumoniae Antigen (M - Final Laboratory Results 12/11/19 16:53: POC Glucose 116 H 12/11/19 18:40: APTT 53.4 H 12/11/19 22:16: POC Glucose 170 H 12/12/19 02:00: WBC 8.5, RBC 2.64 L, Hgb 7.7 L, Hct 25.8 L, MCV 97.7, MCH 29.2, MCHC 29.8 L, RDW Std Deviation 51.1 H, RDW Coeff of Lanre 14.5, Plt Count 262, MPV 9.7, Immature Gran % (Auto) 0.700, Neut % (Auto) 79.4 H, Lymph % (Auto) 9.7 L, [place] % (Auto) 8.8, Eos % (Auto) 1.3, Baso % (Auto) 0.1, Absolute Neuts (auto) 6.8, Absolute Lymphs (auto) 0.83, Nucleated RBC % 0 12/12/19 02:00: Sodium 137, Potassium 3.8, Chloride 109 H, Carbon Dioxide 22.0, Anion Gap 6, BUN 25 H, Creatinine 1.80 H, Estim Creat Clear Calc 23.51, Est GFR (MDRD) Af Amer 36 L, Est GFR (MDRD) Non-Af 30 L, BUN/Creatinine Ratio 13.9, Glucose 115 H, Calcium 8.6, Total Bilirubin 0.30, AST 8 L, ALT 14, Alkaline Phosphatase 76, Total Protein 6.7, Albumin 2.0 L, Globulin 4.7 H, Albumin/Globulin Ratio 0.4 L 12/12/19 02:00: APTT 68.8 H 12/12/19 02:00: Vancomycin Trough 20.0 H 12/12/19 06:40: POC Glucose 110 12/12/19 08:20: APTT 57.0 H 12/12/19 08:20: Blood Type A POSITIVE, Antibody Screen NEGATIVE, Crossmatch See Detail 12/12/19 11:55: POC Glucose 150 H Current Medications Acetaminophen (Acetaminophen 325 Mg Tablet) 650 mg PO Q4H PRN PRN PRN Reason: TEMP > 100 Last Admin: 12/12/19 13:38 Dose: 650 mg Documented by: Al Hydroxide/Mg Hydroxide (Mag Hydrox/Al Hydrox/Simeth 30 Ml Udc) 30 ml PO Q6H PRN PRN PRN Reason: Gastric Burning Albuterol Sulfate (Albuterol 2.5 Mg/3 Ml Vial.Neb.) 2.5 mg INHALATION Q2H PRN PRN PRN Reason: sob/wheezing Albuterol/Ipratropium (Ipratropium/Albuterol Sulfate 3 Ml Ampul.Neb) 3 ml INHALATION Q4HWA.RT [facility] Last Admin: 12/12/19 15:50 Dose: 3 ml Documented by: Allopurinol (Allopurinol 100 Mg Tablet) 100 mg PO DAILY [facility] Last Admin: 12/12/19 09:26 Dose: 100 mg Documented by: Azelastine HCl (Azelastine Hcl Nasal.Sry) 2 spray NASAL BID [facility] Last Admin: 12/12/19 09:27 Dose: 2 spray Documented by: Bisacodyl (Bisacodyl 5 Mg Tablet) 10 mg PO DAILY PRN PRN PRN Reason: Constipation Budesonide (Budesonide Respules 0.5 Mg/2 Ml Ampul.Neb.) 0.5 mg INHALATION Q12H.RT [facility] Last Admin: 12/12/19 08:33 Dose: 0.5 mg Documented by: Dextrose (Dextrose 50%-Water 25 Gm/50 Ml Disp.Syrin) 0 gm IV X1 PRN; Protocol PRN Reason: Hypoglycemia Flecainide Acetate (Flecainide 100 Mg Tablet) 50 mg PO BID [facility] Last Admin: 12/12/19 09:26 Dose: 50 mg Documented by: Glucagon (Glucagon 1 Mg/Ml Syringe) 1 mg IM .X1 PRN PRN Reason: Hypoglycemia Guaifenesin (Guaifenesin 1,200 Mg Tablet) 1,200 mg PO BID [facility] Last Admin: 12/12/19 09:27 Dose: 1,200 mg Documented by: Heparin Sodium (Porcine) (Heparin Injection (Vial) 5,000 Unit/Ml Vial) 0 unit IV UD PRN; Protocol PRN Reason: dose adjustment Last Admin: 12/11/19 20:02 Dose: 1,000 unit Documented by: Sodium Chloride () 250 mls @ 15 mls/hr IV .[id number] PRN PRN Reason: Saline Flush Last Infusion: 12/10/19 16:13 Dose: 0 mls/hr Documented by: Sodium Chloride () 250 mls @ 15 mls/hr IV .[id number] PRN PRN Reason: Additional IVPB Infusion Vancomycin IV Pharmacy to Dose (1 ea/ Sodium Chloride) 500 mls @ 250 mls/hr IV PRN PRN; Protocol PRN Reason: Rx to Dose Heparin Sodium/Dextrose () 25,000 units in 250 mls @ 15 mls/hr IV .[id number] [facility]; Protocol Last Titration: 12/12/19 10:16 Dose: 13 mls/hr Documented by: Vancomycin HCl 1,250 mg/ (Sodium Chloride) 275 mls @ 167 mls/hr IV Q24H [facility] Last Infusion: 12/12/19 04:55 Dose: Infused Documented by: Cefepime HCl 2 gm/ Sodium (Chloride) 100 mls @ 200 mls/hr IV Q12 [facility] Last Infusion: 12/12/19 10:17 Dose: Infused Documented by: Insulin Human Lispro (Insulin Lispro 100 Unit/Ml Insuln.Pen) 0 unit SC ACHS [facility]; Protocol Last Admin: 12/12/19 11:56 Dose: 1 units Documented by: Levothyroxine Sodium (Levothyroxine 25 Mcg Tablet) 25 mcg PO DAILY@0600 [facility] Last Admin: 12/12/19 06:42 Dose: 25 mcg Documented by: Montelukast Sodium (Montelukast 10 Mg Tablet) 10 mg PO QHS [facility] Last Admin: 12/11/19 22:21 Dose: 10 mg Documented by: Ondansetron HCl (Ondansetron 4 Mg/2 Ml Vial) 4 mg IV Q8H PRN PRN PRN Reason: NAUSEA/VOMITING Oxycodone HCl (Oxycodone 5 Mg Tablet) 10 mg PO Q4H PRN PRN PRN Reason: Pain Score 4-10 Pantoprazole Sodium (Pantoprazole Sodium 40 Mg Tablet) 40 mg PO BID [facility] Last Admin: 12/12/19 09:26 Dose: 40 mg Documented by: Polyethylene Glycol (Polyethylene Glycol 3350 17 Gm Packet) 17 gm PO DAILY [facility] Last Admin: 12/12/19 09:27 Dose: 17 gm Documented by: Prochlorperazine Edisylate (Prochlorperazine 10 Mg/2 Ml Vial) 10 mg IV Q6H PRN PRN PRN Reason: Nausea/Vomiting Last Admin: 12/11/19 00:21 Dose: 10 mg Documented by: Senna/Docusate Sodium (Senna/Docusate Sodium 1 Tablet) 2 tablet PO BID PRN PRN PRN Reason: Constipation Sodium Chloride (0.9% Saline Lock 10 Ml Syringe) 10 - 40 ml IV UD PRN PRN Reason: SALINE FLUSH Last Admin: 12/10/19 16:01 Dose: 10 ml Documented by: Medical Necessity - Tobacco Use Smoking Status: Former smoker Route of nutrition/ use of supplements: [] Nutritional Intake: [] IV Site: [] Liz Catheter: [] - Assessment/Plan Antibiotics: [] Assessment/Plan: [] Active and Suspected Problems (Last Reviewed 12/09/19 @ 04:[address] Lul Mazariegos MD) COPD with acute exacerbation (Acute) Septic shock (Acute) Septic shock (Acute) Shortness of breath (Acute) Asthma (Acute) ALEXYS (acute kidney injury) (Acute) Sputum again with staph and pseudomonas. Cont vanc and cefepime. Overall much improved and out of icu. Still high fever intermittently. ALEXYS improved. Covid neg. Will follow
[2019-12-12] MEDS: Ibuprofen 600 MG Tablet PO (16:50)
[2019-12-12] MEDS: 0.9% Normal Saline 1,000 ML 75 ML IV (16:58)
[2019-12-12 17:06] LABS: Bedside Glucose 116 mg/dL (70-110)
[2019-12-12] MEDS: oxyCODONE 5 MG Tablet 10 MG PO ×2 (18:01→22:22)
[2019-12-12 18:14] LABS: Hematocrit 28.9 % (37-47); Hemoglobin 8.9 g/dL (12.0-15.0)
[2019-12-12] MEDS: Montelukast 10 MG Tablet PO (21:10)
[2019-12-12 21:20] LABS: Bedside Glucose 118 mg/dL (70-110)
[2019-12-13] VITALS (18 sets, daily range): BP systolic 100–138; BP diastolic 56–78; PULSE 83–102; RESP 18–20; TEMP 36.6–39.3; O2SAT 95–99
[2019-12-13] MEDS: HEPARIN/D5w 25,000 UNITS 25,000 UNITS/250 ML IV.SOLN. 13 UNITS IV ×2 (01:14→21:45)
[2019-12-13] MEDS: oxyCODONE 5 MG Tablet 10 MG PO ×4 (04:24→21:44)
[2019-12-13] MEDS: Levothyroxine 25 MCG TABLET PO (06:45)
[2019-12-13] MEDS: Acetaminophen 325 MG Tablet 650 MG PO ×3 (06:49→17:47)
[2019-12-13 06:53] LABS: Absolute Lymphocyte Count 0.48 X10^3/uL (0.83-4.51); Absolute Neutrophil Count 5.5 X10^3/uL (2.0-7.7); Basophil# 0.02 X10^3/uL; Basophil% 0.3 % (0-1); Eosinophil# 0.14 X10^3/uL; Hematocrit 30.7 % (37-47); Hemoglobin 9.2 g/dL (12.0-15.0); Lymphocyte # 0.48 X10^3/ul (4.0); Lymphocyte % 6.9 % (19-41); Mean Corpuscular Hgb 28.8 pg (27.0-32.0); Mean Corpuscular Volume 95.9 fL (81-99); Monocyte# 0.71 X10^3/uL; Monocyte% 10.2 % (0-10); NRBC Flagged by Analyzer 0 % (0-5); Neutrophil # 5.45 X10^3/uL (2.7-7.7); Neutrophil % 78.4 % (47-70); POSITIVE DIFFERENTIAL YES; Platelet Count 277 K/mm3 (150-450); RBC Distribution Width CV 15.8 % (11.6-14.6)
[2019-12-13 06:56] LABS: Bedside Glucose 102 mg/dL (70-110)
[2019-12-13] MEDS: Budesonide Respules 0.5 MG/2 ML AMPUL.NEB. INHALATION ×2 (07:09→19:30)
[2019-12-13] MEDS: Ipratropium/Albuterol Sulfate 3 ML AMPUL.NEB INHALATION ×4 (07:09→19:30)
[2019-12-13 07:11] LABS: Partial Thromboplast Time 60.8 Seconds (24.1-36.2)
--- NOTE | 2019-12-13 07:19 | PCM.PN.PUL ---
Patient Problems: Active and Suspected Problems (Last Reviewed 12/09/19 @ 04:[address] Lul Mazariegos MD) COPD with acute exacerbation (Acute) Septic shock (Acute) Septic shock (Acute) Shortness of breath (Acute) Asthma (Acute) ALEXYS (acute kidney injury) (Acute) Subjective: The patient was seen and examined at the bedside this morning. Events from the last 24 hours have been reviewed. The patient is currently afebrile, hemodynamically stable and maintaining appropriate oxygen saturations on 2.5 L/min via nasal cannula. The patient does report overall improvement in her perceived shortness of breath but continues to cough up a significant amount of sputum. Objective: The patient's most recent lab work, culture data and imaging studies have all been personally reviewed. Sputum culture dated December 08 was positive for Pseudomonas aeruginosa and MRSA. - Physical Exam Vitals/I&O's: Vital Signs Temp Pulse Resp BP Pulse Ox 97.9 F 84 19 H 119/72 99 12/13/19 04:15 12/13/19 04:15 12/13/19 04:15 12/13/19 04:15 12/13/19 04:15 Oxygen Flow Rate (L/min) 2.5 Oxygen Delivery Method Nasal Cannula Weight: 246 lb 4.101 oz Body Mass Index (BMI) 45.8 Intake and Output for Last 24 Hours 12/11/19 12/12/19 12/13/19 23:59 23:59 23:59 Intake Total 2214.08 / 2214.08 1930.13 / 1930.13 887.97 / 887.97 Output Total 1550 / 1550 Balance 664.08 / 664.08 1930.13 / 0.13 887.97 / 887.97 General: Alert, Oriented x3, Cooperative, No apparent distress HEENT: Atraumatic, PERRLA, Normocephalic Oral: No Gingival or Mucosal Lesions/ Ulcerations Neck: Supple, No Nodes, Trachea Midline Lungs: Diminished, Rhonchi Cardiovascular: Regular rate, Regular Rhythm Abdomen: Bowel Sounds Present, Soft, Non Tender, Obese Extremities: No clubbing, No cyanosis, Edema Skin: No breakdown Musculoskeletal: No Tenderness to Palpation of Joints or Extremities, No Muscle Wasting Lymphatic: No Cervical, Supraclavicular, or Inguinal Adenopathy Neurological: Cranial nerves II-XII grossly intact, Neuro grossly intact Psych/Mental Status: Normal Affect, Appropriate Labs (Last 48 Hours) 12/11/19 12/11/19 12/11/19 07:00 07:12 07:12 WBC 10.4 RBC 2.86 L Hgb 8.4 L Hct 27.9 L MCV 97.6 MCH 29.4 MCHC 30.1 L RDW Std Deviation 51.3 H RDW Coeff of Lanre 14.3 Plt Count 280 MPV 9.9 Immature Gran % (Auto) Neut % (Auto) Not Reportable Lymph % (Auto) [place] % (Auto) Eos % (Auto) Baso % (Auto) Absolute Neuts (auto) 9.1 H Absolute Lymphs (auto) 1.04 Total Counted 100 Neutrophils % (Manual) 81 H Band Neutrophils % 6 H Lymphocytes % (Manual) 10 L Monocytes % (Manual) 3 Nucleated RBC % Diff Path Review Reviewed Platelet Estimate ADEQUATE Hypochromasia RARE PT INR APTT Sodium 138 Potassium 3.8 Chloride 108 H Carbon Dioxide 22.0 Anion Gap 8 BUN 21 H Creatinine 1.66 H Estim Creat Clear Calc 25.50 Est GFR (MDRD) Af Amer 40 L Est GFR (MDRD) Non-Af 33 L BUN/Creatinine Ratio 12.7 Glucose 119 H Calcium 8.2 L Total Bilirubin 0.40 AST 11 L ALT 12 L Alkaline Phosphatase 77 Total Protein 6.7 Albumin 2.1 L Globulin 4.6 H Albumin/Globulin Ratio 0.5 L Vancomycin Trough POC Glucose 120 H Blood Type Antibody Screen Crossmatch 12/11/19 12/11/19 12/11/19 08:34 14:23 16:53 WBC RBC Hgb Hct MCV MCH MCHC RDW Std Deviation RDW Coeff of Lanre Plt Count MPV Immature Gran % (Auto) Neut % (Auto) Lymph % (Auto) [place] % (Auto) Eos % (Auto) Baso % (Auto) Absolute Neuts (auto) Absolute Lymphs (auto) Total Counted Neutrophils % (Manual) Band Neutrophils % Lymphocytes % (Manual) Monocytes % (Manual) Nucleated RBC % Diff Path Review Platelet Estimate Hypochromasia PT 15.6 H INR 1.3 APTT 49.1 H Sodium Potassium Chloride Carbon Dioxide Anion Gap BUN Creatinine Estim Creat Clear Calc Est GFR (MDRD) Af Amer Est GFR (MDRD) Non-Af BUN/Creatinine Ratio Glucose Calcium Total Bilirubin AST ALT Alkaline Phosphatase Total Protein Albumin Globulin Albumin/Globulin Ratio Vancomycin Trough POC Glucose 113 H 116 H Blood Type Antibody Screen Crossmatch 12/11/19 12/11/19 12/12/19 18:40 22:16 02:00 WBC 8.5 RBC 2.64 L Hgb 7.7 L Hct 25.8 L MCV 97.7 MCH 29.2 MCHC 29.8 L RDW Std Deviation 51.1 H RDW Coeff of Lanre 14.5 Plt Count 262 MPV 9.7 Immature Gran % (Auto) 0.700 Neut % (Auto) 79.4 H Lymph % (Auto) 9.7 L [place] % (Auto) 8.8 Eos % (Auto) 1.3 Baso % (Auto) 0.1 Absolute Neuts (auto) 6.8 Absolute Lymphs (auto) 0.83 Total Counted Neutrophils % (Manual) Band Neutrophils % Lymphocytes % (Manual) Monocytes % (Manual) Nucleated RBC % 0 Diff Path Review Platelet Estimate Hypochromasia PT INR APTT 53.4 H Sodium Potassium Chloride Carbon Dioxide Anion Gap BUN Creatinine Estim Creat Clear Calc Est GFR (MDRD) Af Amer Est GFR (MDRD) Non-Af BUN/Creatinine Ratio Glucose Calcium Total Bilirubin AST ALT Alkaline Phosphatase Total Protein Albumin Globulin Albumin/Globulin Ratio Vancomycin Trough POC Glucose 170 H Blood Type Antibody Screen Crossmatch 12/12/19 12/12/19 12/12/19 02:00 02:00 02:00 WBC RBC Hgb Hct MCV MCH MCHC RDW Std Deviation RDW Coeff of Lanre Plt Count MPV Immature Gran % (Auto) Neut % (Auto) Lymph % (Auto) [place] % (Auto) Eos % (Auto) Baso % (Auto) Absolute Neuts (auto) Absolute Lymphs (auto) Total Counted Neutrophils % (Manual) Band Neutrophils % Lymphocytes % (Manual) Monocytes % (Manual) Nucleated RBC % Diff Path Review Platelet Estimate Hypochromasia PT INR APTT 68.8 H Sodium 137 Potassium 3.8 Chloride 109 H Carbon Dioxide 22.0 Anion Gap 6 BUN 25 H Creatinine 1.80 H Estim Creat Clear Calc 23.51 Est GFR (MDRD) Af Amer 36 L Est GFR (MDRD) Non-Af 30 L BUN/Creatinine Ratio 13.9 Glucose 115 H Calcium 8.6 Total Bilirubin 0.30 AST 8 L ALT 14 Alkaline Phosphatase 76 Total Protein 6.7 Albumin 2.0 L Globulin 4.7 H Albumin/Globulin Ratio 0.4 L Vancomycin Trough 20.0 H POC Glucose Blood Type Antibody Screen Crossmatch 12/12/19 12/12/19 12/12/19 06:40 08:20 08:20 WBC RBC Hgb Hct MCV MCH MCHC RDW Std Deviation RDW Coeff of Lanre Plt Count MPV Immature Gran % (Auto) Neut % (Auto) Lymph % (Auto) [place] % (Auto) Eos % (Auto) Baso % (Auto) Absolute Neuts (auto) Absolute Lymphs (auto) Total Counted Neutrophils % (Manual) Band Neutrophils % Lymphocytes % (Manual) Monocytes % (Manual) Nucleated RBC % Diff Path Review Platelet Estimate Hypochromasia PT INR APTT 57.0 H Sodium Potassium Chloride Carbon Dioxide Anion Gap BUN Creatinine Estim Creat Clear Calc Est GFR (MDRD) Af Amer Est GFR (MDRD) Non-Af BUN/Creatinine Ratio Glucose Calcium Total Bilirubin AST ALT Alkaline Phosphatase Total Protein Albumin Globulin Albumin/Globulin Ratio Vancomycin Trough POC Glucose 110 Blood Type A POSITIVE Antibody Screen NEGATIVE Crossmatch See Detail 12/12/19 12/12/19 12/12/19 11:55 16:49 18:00 WBC RBC Hgb 8.9 L Hct 28.9 L MCV MCH MCHC RDW Std Deviation RDW Coeff of Lanre Plt Count MPV Immature Gran % (Auto) Neut % (Auto) Lymph % (Auto) [place] % (Auto) Eos % (Auto) Baso % (Auto) Absolute Neuts (auto) Absolute Lymphs (auto) Total Counted Neutrophils % (Manual) Band Neutrophils % Lymphocytes % (Manual) Monocytes % (Manual) Nucleated RBC % Diff Path Review Platelet Estimate Hypochromasia PT INR APTT Sodium Potassium Chloride Carbon Dioxide Anion Gap BUN Creatinine Estim Creat Clear Calc Est GFR (MDRD) Af Amer Est GFR (MDRD) Non-Af BUN/Creatinine Ratio Glucose Calcium Total Bilirubin AST ALT Alkaline Phosphatase Total Protein Albumin Globulin Albumin/Globulin Ratio Vancomycin Trough POC Glucose 150 H 116 H Blood Type Antibody Screen Crossmatch 12/12/19 12/13/19 12/13/19 21:07 06:35 06:35 WBC Pending RBC Pending Hgb Pending Hct Pending MCV Pending MCH Pending MCHC Pending RDW Std Deviation Pending RDW Coeff of Lanre Pending Plt Count Pending MPV Immature Gran % (Auto) Neut % (Auto) Pending Lymph % (Auto) [place] % (Auto) Eos % (Auto) Baso % (Auto) Absolute Neuts (auto) Pending Absolute Lymphs (auto) Total Counted Neutrophils % (Manual) Band Neutrophils % Lymphocytes % (Manual) Monocytes % (Manual) Nucleated RBC % Diff Path Review Platelet Estimate Hypochromasia PT INR APTT Sodium Pending Potassium Pending Chloride Pending Carbon Dioxide Pending Anion Gap Pending BUN Pending Creatinine Pending Estim Creat Clear Calc Est GFR (MDRD) Af Amer Pending Est GFR (MDRD) Non-Af Pending BUN/Creatinine Ratio Pending Glucose Pending Calcium Pending Total Bilirubin Pending AST Pending ALT Pending Alkaline Phosphatase Pending Total Protein Pending Albumin Pending Globulin Albumin/Globulin Ratio Vancomycin Trough POC Glucose 118 H Blood Type Antibody Screen Crossmatch 12/13/19 12/13/19 06:35 06:45 WBC RBC Hgb Hct MCV MCH MCHC RDW Std Deviation RDW Coeff of Lanre Plt Count MPV Immature Gran % (Auto) Neut % (Auto) Lymph % (Auto) [place] % (Auto) Eos % (Auto) Baso % (Auto) Absolute Neuts (auto) Absolute Lymphs (auto) Total Counted Neutrophils % (Manual) Band Neutrophils % Lymphocytes % (Manual) Monocytes % (Manual) Nucleated RBC % Diff Path Review Platelet Estimate Hypochromasia PT INR APTT 60.8 H Sodium Potassium Chloride Carbon Dioxide Anion Gap BUN Creatinine Estim Creat Clear Calc Est GFR (MDRD) Af Amer Est GFR (MDRD) Non-Af BUN/Creatinine Ratio Glucose Calcium Total Bilirubin AST ALT Alkaline Phosphatase Total Protein Albumin Globulin Albumin/Globulin Ratio Vancomycin Trough POC Glucose 102 Blood Type Antibody Screen Crossmatch Microbiology 12/10/19 23:45 Blood Culture (Wb) - Anticubital Right Bacteria Detection (PCR) - Final Coag Negative Staph 12/10/19 23:45 Blood Culture (Wb) - Anticubital Right Blood Culture - Preliminary Coag Negative Staph 12/09/19 07:55 Sputum, Expectorated/Coughed Gram Stain - Final 12/09/19 07:55 Sputum, Expectorated/Coughed Respiratory Culture - Final Pseudomonas aeroginosa Meth. resistant Staph. aureus 12/08/19 23:00 Blood Culture (Wb) - Arm Left Blood Culture - Preliminary No growth in 48 hours. 12/08/19 22:30 Blood Culture (Wb) - Anticubital Left Blood Culture - Preliminary No growth in 48 hours. Clinical Impression(s) from Imaging Studies Chest X-Ray 12/08/19 22:37 IMPRESSION: Stable right upper lobe lung nodule. Chronic changes in the lung bases. No evidence for acute cardiopulmonary pathology. Electronically Signed: Archie Bowers MD at 0:22 EDT , Service support , Chest X-Ray 12/09/19 05:06 IMPRESSION: Central line is in adequate position. Chronic changes in the lower lung manzano. No evidence for acute cardiopulmonary pathology. Electronically Signed: Archie Bowers MD at 7:03 EDT , Service support , Chest CT 12/09/19 09:24 IMPRESSION: 1. Dense right lower lobe pneumonia. Follow-up CT is recommended after resolution of symptoms to exclude mass, namely bronchogenic carcinoma 2. 4 mm noncalcified right upper lobe nodule and follow-up CT is recommended in 12 months document stability. Electronically Signed: Johnny Mo MD at 10:49 EDT Tel , Service support , Current Medications Acetaminophen (Acetaminophen 325 Mg Tablet) 650 mg PO Q4H PRN PRN PRN Reason: TEMP > 100 Last Admin: 12/13/19 06:49 Dose: 650 mg Documented by: Al Hydroxide/Mg Hydroxide (Mag Hydrox/Al Hydrox/Simeth 30 Ml Udc) 30 ml PO Q6H PRN PRN PRN Reason: Gastric Burning Albuterol Sulfate (Albuterol 2.5 Mg/3 Ml Vial.Neb.) 2.5 mg INHALATION Q2H PRN PRN PRN Reason: sob/wheezing Albuterol/Ipratropium (Ipratropium/Albuterol Sulfate 3 Ml Ampul.Neb) 3 ml INHALATION Q4HWA.RT [facility] Last Admin: 12/13/19 07:09 Dose: 3 ml Documented by: Allopurinol (Allopurinol 100 Mg Tablet) 100 mg PO DAILY [facility] Last Admin: 12/12/19 09:26 Dose: 100 mg Documented by: Azelastine HCl (Azelastine Hcl Nasal.Sry) 2 spray NASAL BID [facility] Last Admin: 12/12/19 21:10 Dose: 2 spray Documented by: Bisacodyl (Bisacodyl 5 Mg Tablet) 10 mg PO DAILY PRN PRN PRN Reason: Constipation Budesonide (Budesonide Respules 0.5 Mg/2 Ml Ampul.Neb.) 0.5 mg INHALATION Q12H.RT [facility] Last Admin: 12/13/19 07:09 Dose: 0.5 mg Documented by: Dextrose (Dextrose 50%-Water 25 Gm/50 Ml Disp.Syrin) 0 gm IV X1 PRN; Protocol PRN Reason: Hypoglycemia Flecainide Acetate (Flecainide 100 Mg Tablet) 50 mg PO BID [facility] Last Admin: 12/12/19 21:10 Dose: 50 mg Documented by: Glucagon (Glucagon 1 Mg/Ml Syringe) 1 mg IM .X1 PRN PRN Reason: Hypoglycemia Guaifenesin (Guaifenesin 1,200 Mg Tablet) 1,200 mg PO BID [facility] Last Admin: 12/12/19 21:10 Dose: 1,200 mg Documented by: Heparin Sodium (Porcine) (Heparin Injection (Vial) 5,000 Unit/Ml Vial) 0 unit IV UD PRN; Protocol PRN Reason: dose adjustment Last Admin: 12/11/19 20:02 Dose: 1,000 unit Documented by: Sodium Chloride () 250 mls @ 15 mls/hr IV .[id number] PRN PRN Reason: Saline Flush Last Infusion: 12/10/19 16:13 Dose: 0 mls/hr Documented by: Sodium Chloride () 250 mls @ 15 mls/hr IV .[id number] PRN PRN Reason: Additional IVPB Infusion Vancomycin IV Pharmacy to Dose (1 ea/ Sodium Chloride) 500 mls @ 250 mls/hr IV PRN PRN; Protocol PRN Reason: Rx to Dose Heparin Sodium/Dextrose () 25,000 units in 250 mls @ 15 mls/hr IV .[id number] [facility]; Protocol Last Admin: 12/13/19 01:14 Dose: 13 mls/hr Documented by: Vancomycin HCl 1,250 mg/ (Sodium Chloride) 275 mls @ 167 mls/hr IV Q24H [facility] Last Infusion: 12/13/19 04:57 Dose: Infused Documented by: Cefepime HCl 2 gm/ Sodium (Chloride) 100 mls @ 200 mls/hr IV Q12 [facility] Last Infusion: 12/12/19 21:41 Dose: Infused Documented by: Sodium Chloride () 1,000 mls @ 75 mls/hr IV .[id number] [facility] Last Infusion: 12/13/19 04:57 Dose: 75 mls/hr Documented by: Insulin Human Lispro (Insulin Lispro 100 Unit/Ml Insuln.Pen) [facility]; Protocol Last Admin: 12/13/19 06:46 Dose: Not Given Documented by: Levothyroxine Sodium (Levothyroxine 25 Mcg Tablet) 25 mcg PO DAILY@0600 [facility] Last Admin: 12/13/19 06:45 Dose: 25 mcg Documented by: Montelukast Sodium (Montelukast 10 Mg Tablet) 10 mg PO QHS [facility] Last Admin: 12/12/19 21:10 Dose: 10 mg Documented by: Ondansetron HCl (Ondansetron 4 Mg/2 Ml Vial) 4 mg IV Q8H PRN PRN PRN Reason: NAUSEA/VOMITING Oxycodone HCl (Oxycodone 5 Mg Tablet) 10 mg PO Q4H PRN PRN PRN Reason: Pain Score 4-10 Last Admin: 12/13/19 04:24 Dose: 10 mg Documented by: Pantoprazole Sodium (Pantoprazole Sodium 40 Mg Tablet) 40 mg PO BID [facility] Last Admin: 12/12/19 21:10 Dose: 40 mg Documented by: Polyethylene Glycol (Polyethylene Glycol 3350 17 Gm Packet) 17 gm PO DAILY [facility] Last Admin: 12/12/19 09:27 Dose: 17 gm Documented by: Prochlorperazine Edisylate (Prochlorperazine 10 Mg/2 Ml Vial) 10 mg IV Q6H PRN PRN PRN Reason: Nausea/Vomiting Last Admin: 12/11/19 00:21 Dose: 10 mg Documented by: Senna/Docusate Sodium (Senna/Docusate Sodium 1 Tablet) 2 tablet PO BID PRN PRN PRN Reason: Constipation Sodium Chloride (0.9% Saline Lock 10 Ml Syringe) 10 - 40 ml IV UD PRN PRN Reason: SALINE FLUSH Last Admin: 12/10/19 16:01 Dose: 10 ml Documented by: Medical Necessity - Tobacco Use Smoking Status: Former smoker Assessment/Plan All Active Problems (Last Reviewed 12/09/19 @ 04:[address] Lul Mazariegos MD) COPD with acute exacerbation (Acute) Septic shock (Acute) Septic shock (Acute) Shortness of breath (Acute) Asthma (Acute) ALEXYS (acute kidney injury) (Acute) RECOMMENDATIONS: 1. Stop continuous supplemental IV fluids. 2. Continue heparin drip for now and resume Eliquis at discharge. 3. Continue antimicrobials per infectious diseases. 4. Continue aggressive bronchopulmonary hygiene. 5. Continue scheduled bronchodilator therapy and twice daily budesonide. 6. Monitor H&H daily and transfuse if hemoglobin drops below 7 g/dL. 7. BiPAP rescue as needed. IMPRESSIONS: 1. Septic shock secondary to right lower lobe pneumonia The patient does have underlying asthma, but carries a history of steroid induced myopathy. Therefore, she will be continued on bronchodilators and budesonide. The patient was recently treated at the beginning of November with antimicrobials for an underlying respiratory infection with sputum culture that was positive for both MRSA and Pseudomonas. Sputum is again growing similar pathogens. The patient will be continued on antimicrobials per infectious diseases recommendations. Continue aggressive bronchopulmonary hygiene. The patient remains hemodynamically stable. 2. Acute hypoxic respiratory failure secondary to #1 Patient likely has an element of obstructive sleep apnea and dense consolidation leading to decompensation. Fever curve is improving on current antibiotics. Continue with BiPAP rescue as necessary. Attempting to avoid systemic steroids secondary to a history of critical care neuropathy. 3. Anemia The patient does have a history of anemia and was anticoagulated on Eliquis due to a history of paroxysmal atrial fibrillation. The patient's Eliquis was transitioned to heparin, given anemia. Recommend continuing twice daily PPI therapy. Plan to monitor H&H daily and transfuse if hemoglobin drops below 7 g/dL. The patient can resume her Eliquis at discharge. 4. Acute kidney injury Improving. Likely prerenal in etiology. Continue to hold antihypertensives and diuretics. Continue to monitor urine output. No indication for renal replacement therapy. 5. History of moderate persistent asthma and steroid induced myopathy/history of organizing pneumonia Continue current supportive measures including scheduled bronchodilator therapy, twice daily budesonide and antimicrobials per infectious diseases recommendations. 6. History of lung nodules/GERD/paroxysmal atrial fibrillation/history of DVT/PE/anxiety/hypothyroidism/heart failure with preserved ejection fraction Complicates care, management, recovery and prognosis. Continue to hold home antihypertensives. This note was generated with [employer] dictation software. It may contain incorrect words, spelling, and punctuation that were not noted in checking the note before signing. Inpatient E&M: 80599 Subs Hosp L2
[2019-12-13 07:22] LABS: Differential Indicated SCAN CRITERIA MET
[2019-12-13 07:31] LABS: ALB/GLOB Ratio 0.4 RATIO (0.9-2.4); AST(SGOT) 18 U/L (15-37); Alanine Aminotransfer ALT/SGPT 19 U/L (13-56); Alkaline Phosphatase 76 U/L (45-117); Anion Gap 8 (5-15); BUN 26 mg/dL (7-18); BUN/Creat Ratio 17.2 RATIO (10-20); Calcium,Total 8.8 mg/dL (8.5-10.1); Chloride 108 mmol/L (98-107); Creatinine, Serum 1.51 mg/dL (0.55-1.02); EST Glomerular Filtration Rate 37 mL/min (>60); Est Glom Filt Rate - Afr Amer 44 mL/min (>60); Estimated Creatinine Clearance 28.03 ml/min; Globulin 4.8 g/dL (2.2-4.2); Glucose 99 mg/dL (74-106); Potassium 3.7 mmol/L (3.5-5.1); Protein, Total 6.8 g/dL (6.4-8.2); Sodium Level 137 mmol/L (136-145)
--- NOTE | 2019-12-13 07:46 | PN_ITS ---
Patient Problems: Active and Suspected Problems (Last Reviewed 12/09/19 @ 04:[address] Lul Mazariegos MD) COPD with acute exacerbation (Acute) Septic shock (Acute) Septic shock (Acute) Shortness of breath (Acute) Asthma (Acute) ALEXYS (acute kidney injury) (Acute) Reason for Visit: Follow-up on septic shock/RLL pneumonia Subjective: Patient was seen and examined. She feels improved. Still having intermittent fever. No diarrhea Objective: Physical exam: General: Alert, Oriented x3, Cooperative, on 1.5L of oxygen, morbidly obese HEENT: Atraumatic, PERRLA, EOMI, Normocephalic Neck: Supple, Trachea Midline, RIJ central line Lungs: Diminished breath sounds Cardiovascular: Normal S1, Normal S2, No murmurs, Tachycardic Abdomen: Bowel Sounds Present, Soft, Non Tender Extremities: No edema, Capillary Refill Less than 3 Seconds Skin: No rashes, No breakdown Musculoskeletal: No Tenderness to Palpation of Joints or Extremities Neurological: Cranial nerves II-XII grossly intact Psych/Mental Status: Normal Affect, Appropriate Vitals/I&O's: Vital Signs Temp Pulse Resp BP Pulse Ox 100.4 F H 83 19 H 119/72 99 12/13/19 06:30 12/13/19 07:00 12/13/19 04:15 12/13/19 04:15 12/13/19 04:15 Oxygen Flow Rate (L/min) 2.5 Oxygen Delivery Method Nasal Cannula Weight: 111.7 kg Body Mass Index (BMI) 45.8 Intake and Output for Last 24 Hours 12/11/19 12/12/19 12/13/19 23:59 23:59 23:59 Intake Total 2214.08 / 2214.08 1930.13 / 0.13 1127.97 / 1127.97 Output Total 1550 / 1550 Balance 664.08 / 664.08 1930.13 / 1930.13 1127.97 / 1127.97 Microbiology Past 72 Hours 12/11/19 07:12 Blood Culture (Wb) - Right Hand Blood Culture - Preliminary No growth in 48 hours. 12/10/19 23:45 Blood Culture (Wb) - Anticubital Right Bacteria Detection (PCR) - Final Coag Negative Staph 12/10/19 23:45 Blood Culture (Wb) - Anticubital Right Blood Culture - Preliminary Coag Negative Staph 12/09/19 07:55 Sputum, Expectorated/Coughed Gram Stain - Final 12/09/19 07:55 Sputum, Expectorated/Coughed Respiratory Culture - Final Pseudomonas aeroginosa Meth. resistant Staph. aureus 12/08/19 23:00 Blood Culture (Wb) - Arm Left Blood Culture - Preliminary No growth in 48 hours. 12/08/19 22:30 Blood Culture (Wb) - Anticubital Left Blood Culture - Preliminary No growth in 48 hours. 12/09/19 00:30 Urine, Clean Catch Urine Culture - Final Mixed Gram Pos & Gram Neg Org Laboratory Results 12/12/19 08:20: APTT 57.0 H 12/12/19 08:20: Blood Type A POSITIVE, Antibody Screen NEGATIVE, Crossmatch See Detail 12/12/19 11:55: POC Glucose 150 H 12/12/19 16:49: POC Glucose 116 H 12/12/19 18:00: Hgb 8.9 L, Hct 28.9 L 12/12/19 21:07: POC Glucose 118 H 12/13/19 06:35: WBC 7.0, RBC 3.20 L, Hgb 9.2 L, Hct 30.7 L, MCV 95.9, MCH 28.8, MCHC 30.0 L, RDW Std Deviation 56.0 H, RDW Coeff of Lanre 15.8 H, Plt Count 277, MPV 10.0, Immature Gran % (Auto) 2.200 H, Neut % (Auto) 78.4 H, Lymph % (Auto) 6.9 L, [place] % (Auto) 10.2 H, Eos % (Auto) 2.0, Baso % (Auto) 0.3, Absolute Neuts (auto) 5.5, Absolute Lymphs (auto) 0.48 L, Nucleated RBC % 0 12/13/19 06:35: Sodium 137, Potassium 3.7, Chloride 108 H, Carbon Dioxide 21.0, Anion Gap 8, BUN 26 H, Creatinine 1.51 H, Estim Creat Clear Calc 28.03, Est GFR (MDRD) Af Amer 44 L, Est GFR (MDRD) Non-Af 37 L, BUN/Creatinine Ratio 17.2, Glucose 99, Calcium 8.8, Total Bilirubin 0.30, AST 18, ALT 19, Alkaline Phosphatase 76, Total Protein 6.8, Albumin 2.0 L, Globulin 4.8 H, Albumin/Globulin Ratio 0.4 L 12/13/19 06:35: APTT 60.8 H 12/13/19 06:45: POC Glucose 102 Current Medications Acetaminophen (Acetaminophen 325 Mg Tablet) 650 mg PO Q4H PRN PRN PRN Reason: TEMP > 100 Last Admin: 12/13/19 06:49 Dose: 650 mg Documented by: Al Hydroxide/Mg Hydroxide (Mag Hydrox/Al Hydrox/Simeth 30 Ml Udc) 30 ml PO Q6H PRN PRN PRN Reason: Gastric Burning Albuterol Sulfate (Albuterol 2.5 Mg/3 Ml Vial.Neb.) 2.5 mg INHALATION Q2H PRN PRN PRN Reason: sob/wheezing Albuterol/Ipratropium (Ipratropium/Albuterol Sulfate 3 Ml Ampul.Neb) 3 ml INHALATION Q4HWA.RT [facility] Last Admin: 12/13/19 07:09 Dose: 3 ml Documented by: Allopurinol (Allopurinol 100 Mg Tablet) 100 mg PO DAILY [facility] Last Admin: 12/12/19 09:26 Dose: 100 mg Documented by: Azelastine HCl (Azelastine Hcl Nasal.Sry) 2 spray NASAL BID [facility] Last Admin: 12/12/19 21:10 Dose: 2 spray Documented by: Bisacodyl (Bisacodyl 5 Mg Tablet) 10 mg PO DAILY PRN PRN PRN Reason: Constipation Budesonide (Budesonide Respules 0.5 Mg/2 Ml Ampul.Neb.) 0.5 mg INHALATION Q12H.RT [facility] Last Admin: 12/13/19 07:09 Dose: 0.5 mg Documented by: Dextrose (Dextrose 50%-Water 25 Gm/50 Ml Disp.Syrin) 0 gm IV X1 PRN; Protocol PRN Reason: Hypoglycemia Flecainide Acetate (Flecainide 100 Mg Tablet) 50 mg PO BID [facility] Last Admin: 12/12/19 21:10 Dose: 50 mg Documented by: Glucagon (Glucagon 1 Mg/Ml Syringe) 1 mg IM .X1 PRN PRN Reason: Hypoglycemia Guaifenesin (Guaifenesin 1,200 Mg Tablet) 1,200 mg PO BID [facility] Last Admin: 12/12/19 21:10 Dose: 1,200 mg Documented by: Heparin Sodium (Porcine) (Heparin Injection (Vial) 5,000 Unit/Ml Vial) 0 unit IV UD PRN; Protocol PRN Reason: dose adjustment Last Admin: 12/11/19 20:02 Dose: 1,000 unit Documented by: Sodium Chloride () 250 mls @ 15 mls/hr IV .[id number] PRN PRN Reason: Saline Flush Last Infusion: 12/10/19 16:13 Dose: 0 mls/hr Documented by: Sodium Chloride () 250 mls @ 15 mls/hr IV .[id number] PRN PRN Reason: Additional IVPB Infusion Vancomycin IV Pharmacy to Dose (1 ea/ Sodium Chloride) 500 mls @ 250 mls/hr IV PRN PRN; Protocol PRN Reason: Rx to Dose Heparin Sodium/Dextrose () 25,000 units in 250 mls @ 15 mls/hr IV .[id number] [facility]; Protocol Last Admin: 12/13/19 01:14 Dose: 13 mls/hr Documented by: Vancomycin HCl 1,250 mg/ (Sodium Chloride) 275 mls @ 167 mls/hr IV Q24H [facility] Last Infusion: 12/13/19 04:57 Dose: Infused Documented by: Cefepime HCl 2 gm/ Sodium (Chloride) 100 mls @ 200 mls/hr IV Q12 [facility] Last Infusion: 12/12/19 21:41 Dose: Infused Documented by: Sodium Chloride () 1,000 mls @ 75 mls/hr IV .[id number] [facility] Last Infusion: 12/13/19 04:57 Dose: 75 mls/hr Documented by: Insulin Human Lispro (Insulin Lispro 100 Unit/Ml Insuln.Pen) 0 unit SC ACHS [facility]; Protocol Last Admin: 12/13/19 06:46 Dose: Not Given Documented by: Levothyroxine Sodium (Levothyroxine 25 Mcg Tablet) 25 mcg PO DAILY@0600 [facility] Last Admin: 12/13/19 06:45 Dose: 25 mcg Documented by: Montelukast Sodium (Montelukast 10 Mg Tablet) 10 mg PO QHS [facility] Last Admin: 12/12/19 21:10 Dose: 10 mg Documented by: Ondansetron HCl (Ondansetron 4 Mg/2 Ml Vial) 4 mg IV Q8H PRN PRN PRN Reason: NAUSEA/VOMITING Oxycodone HCl (Oxycodone 5 Mg Tablet) 10 mg PO Q4H PRN PRN PRN Reason: Pain Score 4-10 Last Admin: 12/13/19 04:24 Dose: 10 mg Documented by: Pantoprazole Sodium (Pantoprazole Sodium 40 Mg Tablet) 40 mg PO BID [facility] Last Admin: 12/12/19 21:10 Dose: 40 mg Documented by: Polyethylene Glycol (Polyethylene Glycol 3350 17 Gm Packet) 17 gm PO DAILY [facility] Last Admin: 12/12/19 09:27 Dose: 17 gm Documented by: Prochlorperazine Edisylate (Prochlorperazine 10 Mg/2 Ml Vial) 10 mg IV Q6H PRN PRN PRN Reason: Nausea/Vomiting Last Admin: 12/11/19 00:21 Dose: 10 mg Documented by: Senna/Docusate Sodium (Senna/Docusate Sodium 1 Tablet) 2 tablet PO BID PRN PRN PRN Reason: Constipation Sodium Chloride (0.9% Saline Lock 10 Ml Syringe) 10 - 40 ml IV UD PRN PRN Reason: SALINE FLUSH Last Admin: 12/10/19 16:01 Dose: 10 ml Documented by: STROKE Vital Signs/Narrative: Vital Signs Temp Pulse Resp BP Pulse Ox 12/13/19 07:00 83 12/13/19 06:30 100.4 F H 12/13/19 04:15 97.9 F 84 19 H 119/72 99 Medical Necessity - Tobacco Use Smoking Status: Former smoker Assessment/Plan All Active Problems (Last Reviewed 12/09/19 @ 04:[address] Lul Mazariegos MD) COPD with acute exacerbation (Acute) Septic shock (Acute) Septic shock (Acute) Shortness of breath (Acute) Asthma (Acute) ALEXYS (acute kidney injury) (Acute) 1. Septic shock/coag negative bacteremia secondary to right lower lobe pneumonia, resolved Blood cultures growing coagulase negative staph aureus Continue on IV vancomycin and cefepime 2. MRSA/Pseudomonas RLL pneumonia, on IV vancomycin and IV cefepime Continues to spike fevers Sputum cultures on 12/09/19 growing Pseudomonas/MRSA History of Pseudomonas aeruginosa. Covid 19 PCR negative ID following 2. Acute hypoxic respiratory insufficiency secondary to #2, slightly worse Continue treatment for pneumonia. Discussed with pulmonology, will start patient on vest physiotherapy to see if that helps. Wean off for SPO2 more than 94% 3. Acute kidney injury, prerenal likely secondary to #1, slowly improving Admitting creatinine is 2.14, baseline creatinine is 1.4 Off lisinopril. We will repeat blood work in a.m. 4. Acute on chronic anemia, Hb today is 9.3. Status post 1 unit pRBC. No signs of acute blood loss, suspect ongoing loss either GI or due to frequent blood draws CBCD in am 5. Hypertension, BPs are improved. Patient was in septic shock on admission Continue to hold lisinopril, Cardizem We will slowly resume if improved 6. Hypothyroidism, continue on levothyroxine 7. Paroxysmal atrial fibrillation, in normal sinus rhythm, new on flecainide Continue to hold Cardizem on account of recent shock Continue on heparin drip 8. DVT prophylaxis?on heparin drip Inpatient E&M: [id number] [facility] L3
--- NOTE | 2019-12-13 09:39 | CT_ITS ---
STUDY: CT CHEST WITHOUT CONTRAST REASON FOR EXAM: Female, 64 years old. SEVERE Sepsis, short OF BREATH,COUGH RADIATION DOSAGE (If Supplied By Facility): CTDIvol = ( 19.32 ) mGy, DLP = ( 588.89 ) mGycm TECHNIQUE: Transaxial imaging was performed without the administration of intravenous contrast material. Multiplanar coronal and sagittal images were reformatted. Individualized dose optimization techniques were used for this CT. COMPARISON: Comparison is made with prior study dated 12/09/2019. FINDINGS: A right-sided jugular catheter is seen. Stable 6 mm noncalcified nodule in the anterior aspect of the left upper lobe. Stable 4 mm noncalcified nodule in the right upper lobe laterally as seen on axial image #36. There now is evidence of a small right pleural effusion with consolidation in the right lower lobe. This has progressed as compared to prior study. Minimal pleural effusion at the left lung base with left basilar atelectasis and/or infiltrate. This is new as compared to prior study. There are calcifications of the coronary arteries. There are multiple small lymph nodes within the mediastinum, which are normal in size and morphology most compatible with reactive lymph hyperplasia. Normal hilar regions. Normal unenhanced pulmonary arteries. There is atherosclerotic calcification of the aortic arch with tortuosity and elongation of the aortic arch and descending thoracic aorta. There are degenerative changes of the thoracic spine. There is no demonstrated abnormality of the visualized upper abdomen. CT/Chest without Contrast IMPRESSION: Progressive infiltration in the right lower lobe as well as right pleural effusion. Minimal thickening of the left pleura with the mild left basilar atelectasis. Stable noncalcified bilateral pulmonary nodules. Electronically Signed: Lance Back, at 10:40 EDT , Service support ,
[2019-12-13] MEDS: Azelastine HCl NASAL.SRY 2 SPRAY NASAL ×2 (10:56→21:43)
[2019-12-13] MEDS: guaiFENesin 1,200 MG Tablet 1200 MG PO ×2 (10:58→21:43)
[2019-12-13] MEDS: Polyethylene Glycol 3350 17 GM PACKET PO (10:58)
[2019-12-13] MEDS: Pantoprazole Sodium 40 MG Tablet PO ×2 (10:59→21:44)
[2019-12-13] MEDS: Flecainide 100 MG Tablet 50 MG PO ×2 (10:59→21:43)
[2019-12-13] MEDS: Allopurinol 100 MG Tablet PO (10:59)
[2019-12-13 11:20] LABS: Bedside Glucose 129 mg/dL (70-110)
--- NOTE | 2019-12-13 11:52 | PCM.PN.ID ---
Patient Problems: Active and Suspected Problems (Last Reviewed 12/09/19 @ 04:[address] Lul Mazariegos MD) COPD with acute exacerbation (Acute) Septic shock (Acute) Septic shock (Acute) Shortness of breath (Acute) Asthma (Acute) ALEXYS (acute kidney injury) (Acute) Subjective: Still fever, not feeling much better. - Physical Exam Vitals/I&O's: Vital Signs Temp Pulse Resp BP Pulse Ox 101.2 F H 93 18 100/78 96 12/13/19 09:36 12/13/19 11:15 12/13/19 11:15 12/13/19 09:36 12/13/19 09:42 Oxygen Flow Rate (L/min) 1.5 Oxygen Delivery Method Nasal Cannula Weight: 111.7 kg Body Mass Index (BMI) 45.8 Intake and Output for Last 24 Hours 12/11/19 12/12/19 12/13/19 23:59 23:59 23:59 Intake Total 2214.08 / 2214.08 1930.13 / 1930.13 1490.47 / 1490.47 Output Total 1550 / 1550 Balance 664.08 / 664.08 1930.13 / 1930.13 1490.47 / 1490.47 General: Alert, Cooperative, No apparent distress Lungs: Diminished, Rhonchi Cardiovascular: Regular rate, Regular Rhythm Abdomen: Soft, Non Tender, Non-Distended Skin: No rashes Microbiology Past 72 Hours 12/11/19 07:12 Blood Culture (Wb) - Right Hand Blood Culture - Preliminary No growth in 48 hours. 12/10/19 23:45 Blood Culture (Wb) - Anticubital Right Bacteria Detection (PCR) - Final Coag Negative Staph 12/10/19 23:45 Blood Culture (Wb) - Anticubital Right Blood Culture - Preliminary Coag Negative Staph 12/09/19 07:55 Sputum, Expectorated/Coughed Gram Stain - Final 12/09/19 07:55 Sputum, Expectorated/Coughed Respiratory Culture - Final Pseudomonas aeroginosa Meth. resistant Staph. aureus 12/08/19 23:00 Blood Culture (Wb) - Arm Left Blood Culture - Preliminary No growth in 48 hours. 12/08/19 22:30 Blood Culture (Wb) - Anticubital Left Blood Culture - Preliminary No growth in 48 hours. 12/09/19 00:30 Urine, Clean Catch Urine Culture - Final Mixed Gram Pos & Gram Neg Org Laboratory Results 12/12/19 08:20: Blood Type A POSITIVE, Antibody Screen NEGATIVE, Crossmatch See Detail 12/12/19 11:55: POC Glucose 150 H 12/12/19 16:49: POC Glucose 116 H 12/12/19 18:00: Hgb 8.9 L, Hct 28.9 L 12/12/19 21:07: POC Glucose 118 H 12/13/19 06:35: WBC 7.0, RBC 3.20 L, Hgb 9.2 L, Hct 30.7 L, MCV 95.9, MCH 28.8, MCHC 30.0 L, RDW Std Deviation 56.0 H, RDW Coeff of Lanre 15.8 H, Plt Count 277, MPV 10.0, Immature Gran % (Auto) 2.200 H, Neut % (Auto) 78.4 H, Lymph % (Auto) 6.9 L, [place] % (Auto) 10.2 H, Eos % (Auto) 2.0, Baso % (Auto) 0.3, Absolute Neuts (auto) 5.5, Absolute Lymphs (auto) 0.48 L, Nucleated RBC % 0 12/13/19 06:35: Sodium 137, Potassium 3.7, Chloride 108 H, Carbon Dioxide 21.0, Anion Gap 8, BUN 26 H, Creatinine 1.51 H, Estim Creat Clear Calc 28.03, Est GFR (MDRD) Af Amer 44 L, Est GFR (MDRD) Non-Af 37 L, BUN/Creatinine Ratio 17.2, Glucose 99, Calcium 8.8, Total Bilirubin 0.30, AST 18, ALT 19, Alkaline Phosphatase 76, Total Protein 6.8, Albumin 2.0 L, Globulin 4.8 H, Albumin/Globulin Ratio 0.4 L 12/13/19 06:35: APTT 60.8 H 12/13/19 06:45: POC Glucose 102 12/13/19 11:13: POC Glucose 129 H Current Medications Acetaminophen (Acetaminophen 325 Mg Tablet) 650 mg PO Q4H PRN PRN PRN Reason: TEMP > 100 Last Admin: 12/13/19 06:49 Dose: 650 mg Documented by: Al Hydroxide/Mg Hydroxide (Mag Hydrox/Al Hydrox/Simeth 30 Ml Udc) 30 ml PO Q6H PRN PRN PRN Reason: Gastric Burning Albuterol Sulfate (Albuterol 2.5 Mg/3 Ml Vial.Neb.) 2.5 mg INHALATION Q2H PRN PRN PRN Reason: sob/wheezing Albuterol/Ipratropium (Ipratropium/Albuterol Sulfate 3 Ml Ampul.Neb) 3 ml INHALATION Q4HWA.RT [facility] Last Admin: 12/13/19 11:15 Dose: 3 ml Documented by: Allopurinol (Allopurinol 100 Mg Tablet) 100 mg PO DAILY [facility] Last Admin: 12/13/19 10:59 Dose: 100 mg Documented by: Azelastine HCl (Azelastine Hcl Nasal.Sry) 2 spray NASAL BID [facility] Last Admin: 12/13/19 10:56 Dose: 2 spray Documented by: Bisacodyl (Bisacodyl 5 Mg Tablet) 10 mg PO DAILY PRN PRN PRN Reason: Constipation Budesonide (Budesonide Respules 0.5 Mg/2 Ml Ampul.Neb.) 0.5 mg INHALATION Q12H.RT [facility] Last Admin: 12/13/19 07:09 Dose: 0.5 mg Documented by: Dextrose (Dextrose 50%-Water 25 Gm/50 Ml Disp.Syrin) 0 gm IV X1 PRN; Protocol PRN Reason: Hypoglycemia Flecainide Acetate (Flecainide 100 Mg Tablet) 50 mg PO BID [facility] Last Admin: 12/13/19 10:59 Dose: 50 mg Documented by: Glucagon (Glucagon 1 Mg/Ml Syringe) 1 mg IM .X1 PRN PRN Reason: Hypoglycemia Guaifenesin (Guaifenesin 1,200 Mg Tablet) 1,200 mg PO BID [facility] Last Admin: 12/13/19 10:58 Dose: 1,200 mg Documented by: Heparin Sodium (Porcine) (Heparin Injection (Vial) 5,000 Unit/Ml Vial) 0 unit IV UD PRN; Protocol PRN Reason: dose adjustment Last Admin: 12/11/19 20:02 Dose: 1,000 unit Documented by: Sodium Chloride () 250 mls @ 15 mls/hr IV .[id number] PRN PRN Reason: Saline Flush Last Infusion: 12/10/19 16:13 Dose: 0 mls/hr Documented by: Sodium Chloride () 250 mls @ 15 mls/hr IV .[id number] PRN PRN Reason: Additional IVPB Infusion Vancomycin IV Pharmacy to Dose (1 ea/ Sodium Chloride) 500 mls @ 250 mls/hr IV PRN PRN; Protocol PRN Reason: Rx to Dose Heparin Sodium/Dextrose () 25,000 units in 250 mls @ 15 mls/hr IV .[id number] [facility]; Protocol Last Admin: 12/13/19 01:14 Dose: 13 mls/hr Documented by: Vancomycin HCl 1,250 mg/ (Sodium Chloride) 275 mls @ 167 mls/hr IV Q24H [facility] Last Infusion: 12/13/19 04:57 Dose: Infused Documented by: Cefepime HCl 2 gm/ Sodium (Chloride) 100 mls @ 200 mls/hr IV Q12 [facility] Last Infusion: 12/13/19 11:29 Dose: Infused Documented by: Insulin Human Lispro (Insulin Lispro 100 Unit/Ml Insuln.Pen) 0 unit SC ACHS [facility]; Protocol Last Admin: 12/13/19 11:15 Dose: Not Given Documented by: Levothyroxine Sodium (Levothyroxine 25 Mcg Tablet) 25 mcg PO DAILY@0600 [facility] Last Admin: 12/13/19 06:45 Dose: 25 mcg Documented by: Montelukast Sodium (Montelukast 10 Mg Tablet) 10 mg PO QHS [facility] Last Admin: 12/12/19 21:10 Dose: 10 mg Documented by: Ondansetron HCl (Ondansetron 4 Mg/2 Ml Vial) 4 mg IV Q8H PRN PRN PRN Reason: NAUSEA/VOMITING Oxycodone HCl (Oxycodone 5 Mg Tablet) 10 mg PO Q4H PRN PRN PRN Reason: Pain Score 4-10 Last Admin: 12/13/19 04:24 Dose: 10 mg Documented by: Pantoprazole Sodium (Pantoprazole Sodium 40 Mg Tablet) 40 mg PO BID [facility] Last Admin: 12/13/19 10:59 Dose: 40 mg Documented by: Polyethylene Glycol (Polyethylene Glycol 3350 17 Gm Packet) 17 gm PO DAILY [facility] Last Admin: 12/13/19 10:58 Dose: 17 gm Documented by: Prochlorperazine Edisylate (Prochlorperazine 10 Mg/2 Ml Vial) 10 mg IV Q6H PRN PRN PRN Reason: Nausea/Vomiting Last Admin: 12/11/19 00:21 Dose: 10 mg Documented by: Senna/Docusate Sodium (Senna/Docusate Sodium 1 Tablet) 2 tablet PO BID PRN PRN PRN Reason: Constipation Sodium Chloride (0.9% Saline Lock 10 Ml Syringe) 10 - 40 ml IV UD PRN PRN Reason: SALINE FLUSH Last Admin: 12/10/19 16:01 Dose: 10 ml Documented by: Medical Necessity - Tobacco Use Smoking Status: Former smoker Route of nutrition/ use of supplements: [] Nutritional Intake: [] IV Site: [] Liz Catheter: [] - Assessment/Plan Antibiotics: [] Assessment/Plan: [] Active and Suspected Problems (Last Reviewed 12/09/19 @ 04:[address] Lul Mazariegos MD) COPD with acute exacerbation (Acute) Septic shock (Acute) Septic shock (Acute) Shortness of breath (Acute) Asthma (Acute) ALEXYS (acute kidney injury) (Acute) Sputum again with staph and pseudomonas. Cont vanc and cefepime. Overall much improved and out of icu. Still high fever intermittently. ALEXYS improved. Covid neg. Not clear why fever is not better despite good abx coverage. Ordered repeat CT which showed some worsening. May need bronch to further investigate. Will follow, will contact Dr. Bazzi
--- NOTE | 2019-12-13 15:45 | CPS ---
pt unable to tolerate chest physiotherapy vest due to rib pain.
[2019-12-13 16:20] LABS: Bedside Glucose 100 mg/dL (70-110)
[2019-12-13] MEDS: Montelukast 10 MG Tablet PO (21:44)
[2019-12-13] MEDS: Senna/Docusate Sodium 1 Tablet 2 TABLET PO (22:09)
[2019-12-13 22:10] LABS: Bedside Glucose 137 mg/dL (70-110)
--- NOTE | 2019-12-13 23:16 | NURSING ---
found 5 mg oxycodone on floor in pt's room. unsure of when it was dropped. disposed of in pharmaceutical waste container with Martin MARTIN.
[2019-12-14] VITALS (19 sets, daily range): BP systolic 108–143; BP diastolic 63–82; PULSE 75–116; RESP 12–24; TEMP 37.4–38.7; O2SAT 93–98
[2019-12-14] MEDS: Morphine 2 MG/ML Syringe IV (00:50)
[2019-12-14] MEDS: Acetaminophen 325 MG Tablet 650 MG PO ×3 (01:01→20:00)
[2019-12-14] MEDS: Lidocaine 5% Patch 1 PATCH TOPICAL ×2 (01:01→09:30)
--- NOTE | 2019-12-14 01:05 | EKG12_ITS ---
Test Reason : CP Blood Pressure : / mmHG Vent. Rate : 093 BPM Atrial Rate : 093 BPM P-R Int : 142 ms QRS Dur : 084 ms QT Int : 340 ms P-R-T Axes : 028 -18 044 degrees QTc Int : 422 ms Normal sinus rhythm Normal ECG When compared with ECG of 08-DEC-2019 23:12, No significant change was found Confirmed by ROB CARMONA, SHAHRZAD ([id number]), photography editor MAXWELL MILLS ([id number]) on 12/17/2019 1:47:31 PM Referred By: DR TREVINO Confirmed By:SHAHRZAD RIVAS MD
[2019-12-14 02:34] LABS: Partial Thromboplast Time 68.9 Seconds (24.1-36.2)
[2019-12-14 03:06] LABS: Vancomycin, Trough Level 18.5 ug/mL (5.0-15.0)
[2019-12-14] MEDS: oxyCODONE 5 MG Tablet 10 MG PO ×4 (03:20→17:19)
[2019-12-14] MEDS: 0.9% Saline Lock 10 ML Syringe IV ×2 (03:21→11:39)
--- NOTE | 2019-12-14 04:40 | PCM.RX.CS ---
Consult Pharmacy has been consulted to manage selected antiobiotic: Vancomycin Type of Consult: Follow-up Suspected Infection: Sepsis Prior Doses of Antibiotics Received/Current Regimen: Medications Vancomycin HCl 1,250 mg/ (Sodium Chloride) 275 mls @ 167 mls/hr IV Q24H [facility] Last Admin: 12/14/19 03:20 Dose: 167 mls/hr Labs: Sodium 137 mmol/L (136-145) 12/13/19 06:35 Potassium 3.7 mmol/L (3.5-5.1) 12/13/19 06:35 Chloride 108 mmol/L (98-107) H 12/13/19 06:35 Carbon Dioxide 21.0 mmol/L (21.0-32.0) 12/13/19 06:35 Anion Gap 8 (5-15) 12/13/19 06:35 BUN 26 mg/dL (7-18) H 12/13/19 06:35 Creatinine 1.51 mg/dL (0.55-1.02) H 12/13/19 06:35 Est GFR (MDRD) Af Amer 44 mL/min (>60) L 12/13/19 06:35 Est GFR (MDRD) Non-Af 37 mL/min (>60) L 12/13/19 06:35 BUN/Creatinine Ratio 17.2 RATIO (-) 12/13/19 06:35 Glucose 99 mg/dL (74-106) 12/13/19 06:35 Vancomycin Trough 18.5 ug/mL (5.0-15.0) H 12/14/19 02:10 Microbiology: Microbiology 12/11/19 07:12 Blood Culture (Wb) - Right Hand Blood Culture - Preliminary No growth in 48 hours. 12/10/19 23:45 Blood Culture (Wb) - Anticubital Right Bacteria Detection (PCR) - Final Coag Negative Staph 12/10/19 23:45 Blood Culture (Wb) - Anticubital Right Blood Culture - Preliminary Coag Negative Staph 12/09/19 07:55 Sputum, Expectorated/Coughed Gram Stain - Final 12/09/19 07:55 Sputum, Expectorated/Coughed Respiratory Culture - Final Pseudomonas aeroginosa Meth. resistant Staph. aureus 12/08/19 23:00 Blood Culture (Wb) - Arm Left Blood Culture - Preliminary No growth in 48 hours. 12/08/19 22:30 Blood Culture (Wb) - Anticubital Left Blood Culture - Preliminary No growth in 48 hours. 12/09/19 00:30 Urine, Clean Catch Urine Culture - Final Mixed Gram Pos & Gram Neg Org 12/09/19 18:50 Urine, Clean Catch Legionella Antigen - Final 12/09/19 18:50 Urine, Clean Catch Streptococcus pneumoniae Antigen (M - Final 12/08/19 23:15 Mucosa - Nasopharyngeal Respiratory Panel (PCR) - Final Weight used for dosin.7 kg Estimated Creatinine Clearance: 28 Goal Trough: 15-20 mcg/mL Pharmacy Plan for Drug Dosing: Trough level of 18.5 was within target range of 15-20. Will continue same dosing and re-draw trough 12/18/19. Pharmacy Service will continue to monitor and adjust dosing as required. Follow-Up Labs: Trough Vancomycin Labs to be done on [date and time ordered]: 12/18/19 @0230
[2019-12-14] MEDS: Levothyroxine 25 MCG TABLET PO (06:44)
[2019-12-14 06:51] LABS: Bedside Glucose 105 mg/dL (70-110)
--- NOTE | 2019-12-14 07:35 | PN_ITS ---
Patient Problems: Active and Suspected Problems (Last Reviewed 12/09/19 @ 04:[address] Lul Mazariegos MD) COPD with acute exacerbation (Acute) Septic shock (Acute) Septic shock (Acute) Shortness of breath (Acute) Asthma (Acute) ALEXYS (acute kidney injury) (Acute) Subjective: Patient did okay overnight. Patient is reporting progressive pain on the right side. Patient states she tolerates pulmonary toileting well, but feels that her chest pain is worse, especially with BiPAP. Objective: Personally reviewed CT scan of the chest. Patient appears to be developing a right parapneumonic effusion in addition to right lower lobe infiltrate. - Physical Exam Vitals/I&O's: Vital Signs Temp Pulse Resp BP Pulse Ox 37.4 C H 90 18 129/65 H 93 12/14/19 03:26 12/14/19 03:26 12/14/19 03:26 12/14/19 03:26 12/14/19 03:26 Oxygen Flow Rate (L/min) 2 Oxygen Delivery Method Nasal Cannula Weight: 112.6 kg Body Mass Index (BMI) 45.8 Intake and Output for Last 24 Hours 12/12/19 12/13/19 12/14/19 23:59 23:59 23:59 Intake Total 1930.13 / 1930.13 2920.47 / 2920.47 635 / 635 Balance 1930.13 / 1930.13 2920.47 / 2920.47 635 / 635 General: Alert, Oriented x3, Cooperative, No apparent distress, - - Morbidly obese. Speaking in full sentences. HEENT: Atraumatic, PERRLA, EOMI, Normocephalic, - - No scleral icterus or injection noted Oral: Moist Mucosa, No Gingival or Mucosal Lesions/ Ulcerations Neck: Supple, No JVD, No Nodes, Trachea Midline Lungs: No rales, Diminished - Right base, Wheezes - Sporadic, - - Some splinting with deep inhalation on the right Cardiovascular: Regular rate, Regular Rhythm, Normal S1, Normal S2, No murmurs, No rub noted, No Gallop Abdomen: Bowel Sounds Present, Soft, Non Tender, Non-Distended, Obese Extremities: No clubbing, No cyanosis Skin: - - No change compared to previous Musculoskeletal: No Tenderness to Palpation of Joints or Extremities Lymphatic: No Cervical, Supraclavicular, or Inguinal Adenopathy Neurological: Cranial nerves II-XII grossly intact, Neuro grossly intact, Motor Exam 5/5 strength throughout Psych/Mental Status: Alert and oriented to time, place, person, mood and affect Microbiology Past 72 Hours 12/11/19 07:12 Blood Culture (Wb) - Right Hand Blood Culture - Preliminary No growth in 48 hours. 12/10/19 23:45 Blood Culture (Wb) - Anticubital Right Bacteria Detection (PCR) - Final Coag Negative Staph 12/10/19 23:45 Blood Culture (Wb) - Anticubital Right Blood Culture - Preliminary Coag Negative Staph 12/09/19 07:55 Sputum, Expectorated/Coughed Gram Stain - Final 12/09/19 07:55 Sputum, Expectorated/Coughed Respiratory Culture - Final Pseudomonas aeroginosa Meth. resistant Staph. aureus 12/08/19 23:00 Blood Culture (Wb) - Arm Left Blood Culture - Preliminary No growth in 48 hours. 12/08/19 22:30 Blood Culture (Wb) - Anticubital Left Blood Culture - Preliminary No growth in 48 hours. Laboratory Results 12/13/19 11:13: POC Glucose 129 H 12/13/19 16:03: POC Glucose 100 12/13/19 21:55: POC Glucose 137 H 12/14/19 02:10: Vancomycin Trough 18.5 H 12/14/19 02:10: APTT 68.9 H 12/14/19 06:43: POC Glucose 105 Current Medications Acetaminophen (Acetaminophen 325 Mg Tablet) 650 mg PO Q4H PRN PRN PRN Reason: TEMP > 100 Last Admin: 12/14/19 01:01 Dose: 650 mg Documented by: Al Hydroxide/Mg Hydroxide (Mag Hydrox/Al Hydrox/Simeth 30 Ml Udc) 30 ml PO Q6H PRN PRN PRN Reason: Gastric Burning Albuterol Sulfate (Albuterol 2.5 Mg/3 Ml Vial.Neb.) 2.5 mg INHALATION Q2H PRN PRN PRN Reason: sob/wheezing Albuterol/Ipratropium (Ipratropium/Albuterol Sulfate 3 Ml Ampul.Neb) 3 ml INHALATION Q4HWA.RT [facility] Last Admin: 12/13/19 19:30 Dose: 3 ml Documented by: Allopurinol (Allopurinol 100 Mg Tablet) 100 mg PO DAILY [facility] Last Admin: 12/13/19 10:59 Dose: 100 mg Documented by: Azelastine HCl (Azelastine Hcl Nasal.Sry) 2 spray NASAL BID [facility] Last Admin: 12/13/19 21:43 Dose: 2 spray Documented by: Bisacodyl (Bisacodyl 5 Mg Tablet) 10 mg PO DAILY PRN PRN PRN Reason: Constipation Budesonide (Budesonide Respules 0.5 Mg/2 Ml Ampul.Neb.) 0.5 mg INHALATION Q12H.RT [facility] Last Admin: 12/13/19 19:30 Dose: 0.5 mg Documented by: Dextrose (Dextrose 50%-Water 25 Gm/50 Ml Disp.Syrin) 0 gm IV X1 PRN; Protocol PRN Reason: Hypoglycemia Flecainide Acetate (Flecainide 100 Mg Tablet) 50 mg PO BID [facility] Last Admin: 12/13/19 21:43 Dose: 50 mg Documented by: Glucagon (Glucagon 1 Mg/Ml Syringe) 1 mg IM .X1 PRN PRN Reason: Hypoglycemia Guaifenesin (Guaifenesin 1,200 Mg Tablet) 1,200 mg PO BID [facility] Last Admin: 12/13/19 21:43 Dose: 1,200 mg Documented by: Heparin Sodium (Porcine) (Heparin Injection (Vial) 5,000 Unit/Ml Vial) 0 unit IV UD PRN; Protocol PRN Reason: dose adjustment Last Admin: 12/11/19 20:02 Dose: 1,000 unit Documented by: Sodium Chloride () 250 mls @ 15 mls/hr IV .[id number] PRN PRN Reason: Saline Flush Last Infusion: 12/10/19 16:13 Dose: 0 mls/hr Documented by: Sodium Chloride () 250 mls @ 15 mls/hr IV .[id number] PRN PRN Reason: Additional IVPB Infusion Vancomycin IV Pharmacy to Dose (1 ea/ Sodium Chloride) 500 mls @ 250 mls/hr IV PRN PRN; Protocol PRN Reason: Rx to Dose Heparin Sodium/Dextrose () 25,000 units in 250 mls @ 15 mls/hr IV .[id number] [facility]; Protocol Last Admin: 12/13/19 21:45 Dose: 13 mls/hr Documented by: Vancomycin HCl 1,250 mg/ (Sodium Chloride) 275 mls @ 167 mls/hr IV Q24H [facility] Last Infusion: 12/14/19 05:18 Dose: Infused Documented by: Cefepime HCl 2 gm/ Sodium (Chloride) 100 mls @ 200 mls/hr IV Q12 [facility] Last Infusion: 12/13/19 22:38 Dose: Infused Documented by: Insulin Human Lispro (Insulin Lispro 100 Unit/Ml Insuln.Pen) 0 unit SC ACHS [facility]; Protocol Last Admin: 12/14/19 06:44 Dose: Not Given Documented by: Levothyroxine Sodium (Levothyroxine 25 Mcg Tablet) 25 mcg PO DAILY@0600 [facility] Last Admin: 12/14/19 06:44 Dose: 25 mcg Documented by: Lidocaine (Lidocaine 5% Patch) 1 patch TOPICAL DAILY [facility]; Protocol Last Admin: 12/14/19 01:01 Dose: 1 patch Documented by: Montelukast Sodium (Montelukast 10 Mg Tablet) 10 mg PO QHS [facility] Last Admin: 12/13/19 21:44 Dose: 10 mg Documented by: Ondansetron HCl (Ondansetron 4 Mg/2 Ml Vial) 4 mg IV Q8H PRN PRN PRN Reason: NAUSEA/VOMITING Oxycodone HCl (Oxycodone 5 Mg Tablet) 10 mg PO Q4H PRN PRN PRN Reason: Pain Score 4-10 Last Admin: 12/14/19 07:28 Dose: 10 mg Documented by: Pantoprazole Sodium (Pantoprazole Sodium 40 Mg Tablet) 40 mg PO BID [facility] Last Admin: 12/13/19 21:44 Dose: 40 mg Documented by: Polyethylene Glycol (Polyethylene Glycol 3350 17 Gm Packet) 17 gm PO DAILY [facility] Last Admin: 12/13/19 10:58 Dose: 17 gm Documented by: Prochlorperazine Edisylate (Prochlorperazine 10 Mg/2 Ml Vial) 10 mg IV Q6H PRN PRN PRN Reason: Nausea/Vomiting Last Admin: 12/11/19 00:21 Dose: 10 mg Documented by: Senna/Docusate Sodium (Senna/Docusate Sodium 1 Tablet) 2 tablet PO BID PRN PRN PRN Reason: Constipation Last Admin: 12/13/19 22:09 Dose: 1 tablet Documented by: Sodium Chloride (0.9% Saline Lock 10 Ml Syringe) 10 - 40 ml IV UD PRN PRN Reason: SALINE FLUSH Last Admin: 12/14/19 03:21 Dose: 20 ml Documented by: Clinical Impression(s) from Imaging Studies Chest CT 12/13/19 09:39 IMPRESSION: Progressive infiltration in the right lower lobe as well as right pleural effusion. Minimal thickening of the left pleura with the mild left basilar atelectasis. Stable noncalcified bilateral pulmonary nodules. Electronically Signed: Lance Back, at 10:40 EDT , Service support , Medical Necessity - Tobacco Use Smoking Status: Former smoker Assessment/Plan All Active Problems (Last Reviewed 12/09/19 @ 04:[address] Lul Mazariegos MD) COPD with acute exacerbation (Acute) Septic shock (Acute) Septic shock (Acute) Shortness of breath (Acute) Asthma (Acute) ALEXYS (acute kidney injury) (Acute) RECOMMENDATIONS: 1. Continue aggressive pain control 2. Continue scheduled bronchodilators and twice daily budesonide. Avoiding systemic steroids 3. Antibiotics per infectious disease 4. Consider diagnostic/therapeutic thoracentesis on the right if IR believes it is safe 5. BiPAP rescue as needed IMPRESSIONS: 1. Septic shock secondary to probable drug-resistant right lower lobe pneumonia Patient with significant right lower lobe infiltrate. Patient has grown Pseudomonas and MRSA in the past, and appears to be growing this again. Patient has remained hemodynamically stable, but did require the need for BiPAP rescue overnight. Stressed to the patient the importance of aggressive pulmonary toileting. Patient with worsening in chest pain. CT scan shows a right pleural effusion. Patient would have risk factors for a transudate physiology, but parapneumonic effusion would also be a concern. If IR thought it was big enough to safely tap, a therapeutic/diagnostic thoracentesis would be helpful. Antibiotics per infectious disease. 2. Anemia Patient's H&H went up slightly compared to yesterday. Would continue with heparin drip for now until condition stabilizes and it is clear that she will not require any interventions. Okay to continue with PPI twice daily for now. No indication for transfusion at this time. 3. Acute kidney injury Improving. Likely prerenal in etiology. Creatinine is improving with volume expansion. Continue to hold antihypertensives and diuretics. 4. History of moderate persistent asthma and steroid induced myopathy/history of organizing pneumonia The patient is currently maintaining appropriate oxygen saturations on room air but did have a high-grade fever and purulent sputum production. Therefore, we will continue broad-spectrum antimicrobials. CT of the chest is showing a significant right lower lobe pneumonia, but now appears to have a pleural effusion. Patient will likely need a follow-up CT scan to evaluate for a central obstruction. Avoid systemic steroids, if possible. 5. History of lung nodules/GERD/paroxysmal atrial fibrillation/history of DVT/PE/anxiety/hypothyroidism/heart failure with preserved ejection fraction Complicates care, management, recovery and prognosis. Continue to hold home antihypertensives. Heparin will be needed to be held for thoracentesis. TSH level was within normal limits. 6. Acute hypoxic respiratory failure secondary to #1 Patient with BiPAP rescue overnight. Patient likely has an element of obstructive sleep apnea and dense consolidation leading to decompensation. Fever curve is appears to be worsening on current antibiotics. Continue with BiPAP rescue as necessary. Attempting to avoid systemic steroids secondary to a history of critical care neuropathy. Inpatient E&M: [id number] [facility] Hosp L3
[2019-12-14] MEDS: Budesonide Respules 0.5 MG/2 ML AMPUL.NEB. INHALATION ×2 (07:40→19:14)
[2019-12-14] MEDS: Ipratropium/Albuterol Sulfate 3 ML AMPUL.NEB INHALATION ×4 (07:40→19:14)
--- NOTE | 2019-12-14 07:44 | PCM.PN.HOSP ---
Patient Problems: Active and Suspected Problems (Last Reviewed 12/09/19 @ 04:[address] Lul Mazariegos MD) COPD with acute exacerbation (Acute) Septic shock (Acute) Septic shock (Acute) Shortness of breath (Acute) Asthma (Acute) ALEXYS (acute kidney injury) (Acute) Reason for Visit: Follow-up on septic shock/coag negative bacteremia/RLL pneumonia Subjective: Patient was seen and examined. She complains of feeling tired. Had pain with use of BiPAP. Still with fevers Objective: Physical exam: General: Alert, Oriented x3, Cooperative, on 2 L of oxygen, morbidly obese HEENT: Atraumatic, PERRLA, EOMI, Normocephalic Neck: Supple, Trachea Midline, RIJ central line Lungs: Diminished breath sounds, crackles in the right lower lung Cardiovascular: Normal S1, Normal S2, No murmurs, Tachycardic Abdomen: Bowel Sounds Present, Soft, Non Tender Extremities: No edema, Capillary Refill Less than 3 Seconds Skin: No rashes, No breakdown Musculoskeletal: No Tenderness to Palpation of Joints or Extremities Neurological: Cranial nerves II-XII grossly intact Psych/Mental Status: Normal Affect, Appropriate Vitals/I&O's: Vital Signs Temp Pulse Resp BP Pulse Ox 99.4 F H 90 18 129/65 H 93 12/14/19 03:26 12/14/19 03:26 12/14/19 03:26 12/14/19 03:26 12/14/19 03:26 Oxygen Flow Rate (L/min) 2 Oxygen Delivery Method Nasal Cannula Weight: 112.6 kg Body Mass Index (BMI) 45.8 Intake and Output for Last 24 Hours 12/12/19 12/13/19 12/14/19 23:59 23:59 23:59 Intake Total 1929. / 1929.13 2920.47 / 2920.47 635 / 635 Balance 1929. / 1929.13 2920.47 / 2920.47 635 / 635 Microbiology Past 72 Hours 12/11/19 07:12 Blood Culture (Wb) - Right Hand Blood Culture - Preliminary No growth in 48 hours. 12/10/19 23:45 Blood Culture (Wb) - Anticubital Right Bacteria Detection (PCR) - Final Coag Negative Staph 12/10/19 23:45 Blood Culture (Wb) - Anticubital Right Blood Culture - Preliminary Coag Negative Staph 12/09/19 07:55 Sputum, Expectorated/Coughed Gram Stain - Final 12/09/19 07:55 Sputum, Expectorated/Coughed Respiratory Culture - Final Pseudomonas aeroginosa Meth. resistant Staph. aureus 12/08/19 23:00 Blood Culture (Wb) - Arm Left Blood Culture - Preliminary No growth in 48 hours. 12/08/19 22:30 Blood Culture (Wb) - Anticubital Left Blood Culture - Preliminary No growth in 48 hours. Laboratory Results 12/13/19 11:13: POC Glucose 129 H 12/13/19 16:03: POC Glucose 100 12/13/19 21:55: POC Glucose 137 H 12/14/19 02:10: Vancomycin Trough 18.5 H 12/14/19 02:10: APTT 68.9 H 12/14/19 06:43: POC Glucose 105 Current Medications Acetaminophen (Acetaminophen 325 Mg Tablet) 650 mg PO Q4H PRN PRN PRN Reason: TEMP > 100 Last Admin: 12/14/19 01:01 Dose: 650 mg Documented by: Al Hydroxide/Mg Hydroxide (Mag Hydrox/Al Hydrox/Simeth 30 Ml Udc) 30 ml PO Q6H PRN PRN PRN Reason: Gastric Burning Albuterol Sulfate (Albuterol 2.5 Mg/3 Ml Vial.Neb.) 2.5 mg INHALATION Q2H PRN PRN PRN Reason: sob/wheezing Albuterol/Ipratropium (Ipratropium/Albuterol Sulfate 3 Ml Ampul.Neb) 3 ml INHALATION Q4HWA.RT [facility] Last Admin: 12/14/19 07:40 Dose: 3 ml Documented by: Allopurinol (Allopurinol 100 Mg Tablet) 100 mg PO DAILY [facility] Last Admin: 12/13/19 10:59 Dose: 100 mg Documented by: Azelastine HCl (Azelastine Hcl Nasal.Sry) 2 spray NASAL BID [facility] Last Admin: 12/13/19 21:43 Dose: 2 spray Documented by: Bisacodyl (Bisacodyl 5 Mg Tablet) 10 mg PO DAILY PRN PRN PRN Reason: Constipation Budesonide (Budesonide Respules 0.5 Mg/2 Ml Ampul.Neb.) 0.5 mg INHALATION Q12H.RT [facility] Last Admin: 12/14/19 07:40 Dose: 0.5 mg Documented by: Dextrose (Dextrose 50%-Water 25 Gm/50 Ml Disp.Syrin) 0 gm IV X1 PRN; Protocol PRN Reason: Hypoglycemia Flecainide Acetate (Flecainide 100 Mg Tablet) 50 mg PO BID [facility] Last Admin: 12/13/19 21:43 Dose: 50 mg Documented by: Glucagon (Glucagon 1 Mg/Ml Syringe) 1 mg IM .X1 PRN PRN Reason: Hypoglycemia Guaifenesin (Guaifenesin 1,200 Mg Tablet) 1,200 mg PO BID [facility] Last Admin: 12/13/19 21:43 Dose: 1,200 mg Documented by: Heparin Sodium (Porcine) (Heparin Injection (Vial) 5,000 Unit/Ml Vial) 0 unit IV UD PRN; Protocol PRN Reason: dose adjustment Last Admin: 12/11/19 20:02 Dose: 1,000 unit Documented by: Sodium Chloride () 250 mls @ 15 mls/hr IV .[id number] PRN PRN Reason: Saline Flush Last Infusion: 12/10/19 16:13 Dose: 0 mls/hr Documented by: Sodium Chloride () 250 mls @ 15 mls/hr IV .[id number] PRN PRN Reason: Additional IVPB Infusion Vancomycin IV Pharmacy to Dose (1 ea/ Sodium Chloride) 500 mls @ 250 mls/hr IV PRN PRN; Protocol PRN Reason: Rx to Dose Heparin Sodium/Dextrose () 25,000 units in 250 mls @ 15 mls/hr IV .[id number] [facility]; Protocol Last Admin: 12/13/19 21:45 Dose: 13 mls/hr Documented by: Vancomycin HCl 1,250 mg/ (Sodium Chloride) 275 mls @ 167 mls/hr IV Q24H [facility] Last Infusion: 12/14/19 05:18 Dose: Infused Documented by: Cefepime HCl 2 gm/ Sodium (Chloride) 100 mls @ 200 mls/hr IV Q12 [facility] Last Infusion: 12/13/19 22:38 Dose: Infused Documented by: Insulin Human Lispro (Insulin Lispro 100 Unit/Ml Insuln.Pen) 0 unit SC ACHS [facility]; Protocol Last Admin: 12/14/19 06:44 Dose: Not Given Documented by: Levothyroxine Sodium (Levothyroxine 25 Mcg Tablet) 25 mcg PO DAILY@0600 [facility] Last Admin: 12/14/19 06:44 Dose: 25 mcg Documented by: Lidocaine (Lidocaine 5% Patch) 1 patch TOPICAL DAILY [facility]; Protocol Last Admin: 12/14/19 01:01 Dose: 1 patch Documented by: Montelukast Sodium (Montelukast 10 Mg Tablet) 10 mg PO QHS [facility] Last Admin: 12/13/19 21:44 Dose: 10 mg Documented by: Ondansetron HCl (Ondansetron 4 Mg/2 Ml Vial) 4 mg IV Q8H PRN PRN PRN Reason: NAUSEA/VOMITING Oxycodone HCl (Oxycodone 5 Mg Tablet) 10 mg PO Q4H PRN PRN PRN Reason: Pain Score 4-10 Last Admin: 12/14/19 07:28 Dose: 10 mg Documented by: Pantoprazole Sodium (Pantoprazole Sodium 40 Mg Tablet) 40 mg PO BID [facility] Last Admin: 12/13/19 21:44 Dose: 40 mg Documented by: Polyethylene Glycol (Polyethylene Glycol 3350 17 Gm Packet) 17 gm PO DAILY [facility] Last Admin: 12/13/19 10:58 Dose: 17 gm Documented by: Prochlorperazine Edisylate (Prochlorperazine 10 Mg/2 Ml Vial) 10 mg IV Q6H PRN PRN PRN Reason: Nausea/Vomiting Last Admin: 12/11/19 00:21 Dose: 10 mg Documented by: Senna/Docusate Sodium (Senna/Docusate Sodium 1 Tablet) 2 tablet PO BID PRN PRN PRN Reason: Constipation Last Admin: 12/13/19 22:09 Dose: 1 tablet Documented by: Sodium Chloride (0.9% Saline Lock 10 Ml Syringe) 10 - 40 ml IV UD PRN PRN Reason: SALINE FLUSH Last Admin: 12/14/19 03:21 Dose: 20 ml Documented by: Medical Necessity - Tobacco Use Smoking Status: Former smoker Assessment/Plan All Active Problems (Last Reviewed 12/09/19 @ 04:[address] Lul Mazariegos MD) COPD with acute exacerbation (Acute) Septic shock (Acute) Septic shock (Acute) Shortness of breath (Acute) Asthma (Acute) ALEXYS (acute kidney injury) (Acute) 1. Septic shock/coag negative bacteremia secondary to right lower lobe pneumonia, resolved Blood cultures growing coagulase negative staph aureus Continue on IV vancomycin and cefepime 2. MRSA/Pseudomonas RLL pneumonia, on IV vancomycin and IV cefepime Continues to spike fevers Sputum cultures on 12/09/19 growing Pseudomonas/MRSA History of Pseudomonas aeruginosa. Covid 19 PCR negative ID following 2. Acute hypoxic respiratory insufficiency secondary to #2, slightly worse Continue treatment for pneumonia. Discussed with pulmonology, will start patient on vest physiotherapy to see if that helps. Wean off for SPO2 more than 94% 3. Acute kidney injury, prerenal likely secondary to #1, slowly improving Admitting creatinine is 2.14, baseline creatinine is 1.4 Off lisinopril. We will repeat blood work in a.m. 4. Acute on chronic anemia, Hb today is 8.8. Status post 1 unit pRBC. No signs of acute blood loss, suspect ongoing loss either GI or due to frequent blood draws CBCD in am 5. Hypertension, BPs are improved. Patient was in septic shock on admission Continue to hold lisinopril, Cardizem We will slowly resume if improved 6. Hypothyroidism, continue on levothyroxine 7. Paroxysmal atrial fibrillation, in normal sinus rhythm, new on flecainide Continue to hold Cardizem on account of recent shock Continue on heparin drip 8. DVT prophylaxis?on heparin drip Inpatient E&M: [id number] [facility] Hosp L2
[2019-12-14 08:10] LABS: ALB/GLOB Ratio 0.4 RATIO (0.9-2.4); AST(SGOT) 18 U/L (15-37); Alanine Aminotransfer ALT/SGPT 23 U/L (13-56); Albumin, Serum 1.8 g/dL (3.2-5.0); Alkaline Phosphatase 83 U/L (45-117); Anion Gap 8 (5-15); BUN 25 mg/dL (7-18); Chloride 111 mmol/L (98-107); Creatinine, Serum 1.47 mg/dL (0.55-1.02); EST Glomerular Filtration Rate 38 mL/min (>60); Est Glom Filt Rate - Afr Amer 46 mL/min (>60); Estimated Creatinine Clearance 28.79 ml/min; Glucose 108 mg/dL (74-106); Potassium 4.1 mmol/L (3.5-5.1); Protein, Total 6.8 g/dL (6.4-8.2); Sodium Level 137 mmol/L (136-145)
[2019-12-14 08:16] LABS: Absolute Lymphocyte Count 0.95 X10^3/uL (0.83-4.51); Absolute Neutrophil Count 5.7 X10^3/uL (2.0-7.7); Basophil# 0.02 X10^3/uL; Basophil% 0.2 % (0-1); Eosinophil# 0.12 X10^3/uL; Eosinophils% 1.4 % (0-5); Hematocrit 29.6 % (37-47); Hemoglobin 8.8 g/dL (12.0-15.0); Lymphocyte # 0.95 X10^3/ul (4.0); Lymphocyte % 11.5 % (19-41); Mean Corp Hgb Conc 29.7 g/dL (32-36); Mean Corpuscular Hgb 28.6 pg (27.0-32.0); Mean Corpuscular Volume 96.1 fL (81-99); Monocyte# 1.06 X10^3/uL; Monocyte% 12.8 % (0-10); NRBC Flagged by Analyzer 0 % (0-5); Neutrophil # 5.73 X10^3/uL (2.7-7.7); Neutrophil % 69.2 % (47-70); Platelet Count 309 K/mm3 (150-450); RBC Distribution Width CV 15.9 % (11.6-14.6); RBC Distribution Width SD 56.6 fl (35.1-43.9); Red Blood Count 3.08 M/mm3 (4.2-5.4); White Blood Count 8.3 K/mm3 (4.4-11.0)
[2019-12-14] MEDS: Azelastine HCl NASAL.SRY 2 SPRAY NASAL ×2 (09:29→21:26)
[2019-12-14] MEDS: Allopurinol 100 MG Tablet PO (09:29)
[2019-12-14] MEDS: guaiFENesin 1,200 MG Tablet 1200 MG PO ×2 (09:29→21:36)
[2019-12-14] MEDS: Flecainide 100 MG Tablet 50 MG PO ×2 (09:30→21:36)
[2019-12-14] MEDS: Polyethylene Glycol 3350 17 GM PACKET PO (09:30)
[2019-12-14] MEDS: Pantoprazole Sodium 40 MG Tablet PO ×2 (09:30→21:36)
[2019-12-14] MEDS: Magnesium Hydroxide 30 ML UDC PO (11:39)
[2019-12-14] MEDS: LORazepam 2 MG/ML Syringe 1 MG IV (11:39)
[2019-12-14 11:50] LABS: Bedside Glucose 102 mg/dL (70-110)
--- NOTE | 2019-12-14 12:43 | CASEMGMT ---
Addendum entered by Astrid Cottrell 12/14/19 13:47: This MARIO HURST reached pt via phone at this time to discuss discharge plan. Pt declines need for HHC at this time and states she would like [employer] for [employer], if oxygen needed at discharge. Green sheet left on chart for O2, if qualifies. Nelsy MARTIN CM Original Note: Pt is currently in droplet precautions at this time, so call to room to discuss discharge planning at this time but pt does not answer at this time. Will attempt again later. Nelsy MARTIN CM
--- NOTE | 2019-12-14 15:18 | NURSING ---
read and reviewed SN documentation
--- NOTE | 2019-12-14 16:21 | PN.ID_ITS ---
Patient Problems: Active and Suspected Problems (Last Reviewed 12/09/19 @ 04:[address] Lul Mazariegos MD) COPD with acute exacerbation (Acute) Septic shock (Acute) Septic shock (Acute) Shortness of breath (Acute) Asthma (Acute) ALEXYS (acute kidney injury) (Acute) Subjective: Feeling a little better today but still cough and fever - Physical Exam Vitals/I&O's: Vital Signs Temp Pulse Resp BP Pulse Ox 100.4 F H 94 20 H 118/63 94 12/14/19 11:25 12/14/19 15:00 12/14/19 14:43 12/14/19 11:25 12/14/19 11:25 Oxygen Flow Rate (L/min) 2 Oxygen Delivery Method Nasal Cannula Weight: 112.6 kg Body Mass Index (BMI) 45.8 Intake and Output for Last 24 Hours 12/12/19 12/13/19 12/14/19 23:59 23:59 23:59 Intake Total 1930.13 / 1930.13 2920.47 / 2920.47 1095 / 1095 Balance 1930.13 / 1930.13 2920.47 / 2920.47 1095 / 1095 General: Alert, Cooperative, No apparent distress Lungs: Rhonchi Cardiovascular: Regular rate, Regular Rhythm Abdomen: Soft, Non Tender, Non-Distended Skin: No rashes Microbiology Past 72 Hours 12/08/19 23:00 Blood Culture (Wb) - Arm Left Blood Culture - Final No growth in 5 days. 12/08/19 22:30 Blood Culture (Wb) - Anticubital Left Blood Culture - Final No growth in 5 days. 12/11/19 07:12 Blood Culture (Wb) - Right Hand Blood Culture - Preliminary No growth in 48 hours. 12/10/19 23:45 Blood Culture (Wb) - Anticubital Right Bacteria Detection (PCR) - Final Coag Negative Staph 12/10/19 23:45 Blood Culture (Wb) - Anticubital Right Blood Culture - Preliminary Coag Negative Staph 12/09/19 07:55 Sputum, Expectorated/Coughed Gram Stain - Final 12/09/19 07:55 Sputum, Expectorated/Coughed Respiratory Culture - Final Pseudomonas aeroginosa Meth. resistant Staph. aureus Laboratory Results 12/13/19 21:55: POC Glucose 137 H 12/14/19 02:10: Vancomycin Trough 18.5 H 12/14/19 02:10: APTT 68.9 H 12/14/19 02:14: WBC 8.3, RBC 3.08 L, Hgb 8.8 L, Hct 29.6 L, MCV 96.1, MCH 28.6, MCHC 29.7 L, RDW Std Deviation 56.6 H, RDW Coeff of Lanre 15.9 H, Plt Count 309, MPV 11.0, Immature Gran % (Auto) 4.900 H, Neut % (Auto) 69.2, Lymph % (Auto) 11 .5 L, [place] % (Auto) 12.8 H, Eos % (Auto) 1.4, Baso % (Auto) 0.2, Absolute Neuts (auto) 5.7, Absolute Lymphs (auto) 0.95, Nucleated RBC % 0 12/14/19 02:14: Sodium 137, Potassium 4.1, Chloride 111 H, Carbon Dioxide 18.0 L , Anion Gap 8, BUN 25 H, Creatinine 1.47 H, Estim Creat Clear Calc 28.79, Est GFR (MDRD) Af Amer 46 L, Est GFR (MDRD) Non-Af 38 L, BUN/Creatinine Ratio 17.0, Glucose 108 H, Calcium 9.0, Total Bilirubin 0.30, AST 18, ALT 23, Alkaline Phosphatase 83, Total Protein 6.8, Albumin 1.8 L, Globulin 5.0 H, Albumin/Globulin Ratio 0.4 L 12/14/19 06:43: POC Glucose 105 12/14/19 11:34: POC Glucose 102 Current Medications Acetaminophen (Acetaminophen 325 Mg Tablet) 650 mg PO Q4H PRN PRN PRN Reason: TEMP > 100 Last Admin: 12/14/19 09:46 Dose: 650 mg Documented by: Al Hydroxide/Mg Hydroxide (Mag Hydrox/Al Hydrox/Simeth 30 Ml Udc) 30 ml PO Q6H PRN PRN PRN Reason: Gastric Burning Albuterol Sulfate (Albuterol 2.5 Mg/3 Ml Vial.Neb.) 2.5 mg INHALATION Q2H PRN PRN PRN Reason: sob/wheezing Albuterol/Ipratropium (Ipratropium/Albuterol Sulfate 3 Ml Ampul.Neb) 3 ml INHALATION Q4HWA.RT [facility] Last Admin: 12/14/19 14:41 Dose: 3 ml Documented by: Allopurinol (Allopurinol 100 Mg Tablet) 100 mg PO DAILY [facility] Last Admin: 12/14/19 09:29 Dose: 100 mg Documented by: Azelastine HCl (Azelastine Hcl Nasal.Sry) 2 spray NASAL BID [facility] Last Admin: 12/14/19 09:29 Dose: 2 spray Documented by: Bisacodyl (Bisacodyl 5 Mg Tablet) 10 mg PO DAILY PRN PRN PRN Reason: Constipation Budesonide (Budesonide Respules 0.5 Mg/2 Ml Ampul.Neb.) 0.5 mg INHALATION Q12H.RT [facility] Last Admin: 12/14/19 07:40 Dose: 0.5 mg Documented by: Dextrose (Dextrose 50%-Water 25 Gm/50 Ml Disp.Syrin) 0 gm IV X1 PRN; Protocol PRN Reason: Hypoglycemia Flecainide Acetate (Flecainide 100 Mg Tablet) 50 mg PO BID [facility] Last Admin: 12/14/19 09:30 Dose: 50 mg Documented by: Glucagon (Glucagon 1 Mg/Ml Syringe) 1 mg IM .X1 PRN PRN Reason: Hypoglycemia Guaifenesin (Guaifenesin 1,200 Mg Tablet) 1,200 mg PO BID [facility] Last Admin: 12/14/19 09:29 Dose: 1,200 mg Documented by: Heparin Sodium (Porcine) (Heparin Injection (Vial) 5,000 Unit/Ml Vial) 0 unit IV UD PRN; Protocol PRN Reason: dose adjustment Last Admin: 12/11/19 20:02 Dose: 1,000 unit Documented by: Sodium Chloride () 250 mls @ 15 mls/hr IV .[id number] PRN PRN Reason: Saline Flush Last Infusion: 12/10/19 16:13 Dose: 0 mls/hr Documented by: Sodium Chloride () 250 mls @ 15 mls/hr IV .[id number] PRN PRN Reason: Additional IVPB Infusion Vancomycin IV Pharmacy to Dose (1 ea/ Sodium Chloride) 500 mls @ 250 mls/hr IV PRN PRN; Protocol PRN Reason: Rx to Dose Heparin Sodium/Dextrose () 25,000 units in 250 mls @ 15 mls/hr IV .[id number] [facility]; Protocol Last Admin: 12/13/19 21:45 Dose: 13 mls/hr Documented by: Vancomycin HCl 1,250 mg/ (Sodium Chloride) 275 mls @ 167 mls/hr IV Q24H [facility] Last Infusion: 12/14/19 05:18 Dose: Infused Documented by: Cefepime HCl 2 gm/ Sodium (Chloride) 100 mls @ 200 mls/hr IV Q12 [facility] Last Infusion: 12/14/19 10:05 Dose: Infused Documented by: Insulin Human Lispro (Insulin Lispro 100 Unit/Ml Insuln.Pen) 0 unit SC ACHS [facility]; Protocol Last Admin: 12/14/19 11:58 Dose: Not Given Documented by: Levothyroxine Sodium (Levothyroxine 25 Mcg Tablet) 25 mcg PO DAILY@0600 [facility] Last Admin: 12/14/19 06:44 Dose: 25 mcg Documented by: Lidocaine (Lidocaine 5% Patch) 2 patch TOPICAL DAILY [facility]; Protocol Montelukast Sodium (Montelukast 10 Mg Tablet) 10 mg PO QHS [facility] Last Admin: 12/13/19 21:44 Dose: 10 mg Documented by: Ondansetron HCl (Ondansetron 4 Mg/2 Ml Vial) 4 mg IV Q8H PRN PRN PRN Reason: NAUSEA/VOMITING Oxycodone HCl (Oxycodone 5 Mg Tablet) 10 mg PO Q4H PRN PRN PRN Reason: Pain Score 4-10 Last Admin: 12/14/19 11:39 Dose: 10 mg Documented by: Pantoprazole Sodium (Pantoprazole Sodium 40 Mg Tablet) 40 mg PO BID [facility] Last Admin: 12/14/19 09:30 Dose: 40 mg Documented by: Polyethylene Glycol (Polyethylene Glycol 3350 17 Gm Packet) 17 gm PO DAILY [facility] Last Admin: 12/14/19 09:30 Dose: 17 gm Documented by: Prochlorperazine Edisylate (Prochlorperazine 10 Mg/2 Ml Vial) 10 mg IV Q6H PRN PRN PRN Reason: Nausea/Vomiting Last Admin: 12/11/19 00:21 Dose: 10 mg Documented by: Senna/Docusate Sodium (Senna/Docusate Sodium 1 Tablet) 2 tablet PO BID PRN PRN PRN Reason: Constipation Last Admin: 12/13/19 22:09 Dose: 1 tablet Documented by: Sodium Chloride (0.9% Saline Lock 10 Ml Syringe) 10 - 40 ml IV UD PRN PRN Reason: SALINE FLUSH Last Admin: 12/14/19 11:39 Dose: 10 ml Documented by: Medical Necessity - Tobacco Use Smoking Status: Former smoker Route of nutrition/ use of supplements: [] Nutritional Intake: [] IV Site: [] Liz Catheter: [] - Assessment/Plan Antibiotics: [] Assessment/Plan: [] Active and Suspected Problems (Last Reviewed 12/09/19 @ 04:[address] Lul Mazariegos MD) COPD with acute exacerbation (Acute) Septic shock (Acute) Septic shock (Acute) Shortness of breath (Acute) Asthma (Acute) ALEXYS (acute kidney injury) (Acute) Sputum again with staph and pseudomonas. Cont vanc and cefepime. Overall much improved and out of icu. Still high fever intermittently. ALEXYS improved. Covid neg. Ordered repeat CT which showed some worsening. May be getting thoracentesis if possible. Will follow
[2019-12-14 18:31] LABS: Bedside Glucose 89 mg/dL (70-110)
[2019-12-14] MEDS: HEPARIN/D5w 25,000 UNITS 25,000 UNITS/250 ML IV.SOLN. 13 UNITS IV (19:49)
[2019-12-14] MEDS: Montelukast 10 MG Tablet PO (21:36)
[2019-12-14 21:40] LABS: Bedside Glucose 111 mg/dL (70-110)
[2019-12-15] VITALS (16 sets, daily range): BP systolic 110–133; BP diastolic 55–74; PULSE 88–108; RESP 16–20; TEMP 36.7–38.3; O2SAT 93–97
[2019-12-15] MEDS: oxyCODONE 5 MG Tablet 10 MG PO ×4 (00:27→23:35)
[2019-12-15] MEDS: Levothyroxine 25 MCG TABLET PO (05:02)
[2019-12-15] MEDS: Budesonide Respules 0.5 MG/2 ML AMPUL.NEB. INHALATION ×2 (06:53→19:11)
[2019-12-15] MEDS: Ipratropium/Albuterol Sulfate 3 ML AMPUL.NEB INHALATION ×4 (06:53→19:11)
[2019-12-15 07:01] LABS: Bedside Glucose 125 mg/dL (70-110)
--- NOTE | 2019-12-15 08:00 | PN_ITS ---
Patient Problems: Active and Suspected Problems (Last Reviewed 12/09/19 @ 04:[address] Lul Mazariegos MD) COPD with acute exacerbation (Acute) Septic shock (Acute) Septic shock (Acute) Shortness of breath (Acute) Asthma (Acute) ALEXYS (acute kidney injury) (Acute) Reason for Visit: Follow-up on septic shock/coag negative bacteremia/RLL pneumonia Subjective: Patient seen and examined. No acute events. Still having low-grade fevers. Objective: Physical exam: General: Alert, Oriented x3, Cooperative, on 2 L of oxygen, morbidly obese HEENT: Atraumatic, PERRLA, EOMI, Normocephalic Neck: Supple, Trachea Midline, RIJ central line Lungs: Diminished breath sounds, crackles in the right lower lung Cardiovascular: Normal S1, Normal S2, No murmurs, Tachycardic Abdomen: Bowel Sounds Present, Soft, Non Tender Extremities: No edema, Capillary Refill Less than 3 Seconds Skin: No rashes, No breakdown Musculoskeletal: No Tenderness to Palpation of Joints or Extremities Neurological: Cranial nerves II-XII grossly intact Psych/Mental Status: Normal Affect, Appropriate Vitals/I&O's: Vital Signs Temp Pulse Resp BP Pulse Ox 98.3 F 95 20 H 117/68 95 12/15/19 05:00 12/15/19 07:00 12/15/19 05:00 12/15/19 05:00 12/15/19 05:00 Oxygen Flow Rate (L/min) 2 Oxygen Delivery Method Nasal Cannula Weight: 114.2 kg Body Mass Index (BMI) 45.8 Intake and Output for Last 24 Hours 12/13/19 12/14/19 12/15/19 23:59 23:59 23:59 Intake Total 2920.47 / 2920.47 1684 775 / 775 Output Total 0 / 0 Balance 2920.47 / 2920.47 16845 / 775 Microbiology Past 72 Hours 12/08/19 23:00 Blood Culture (Wb) - Arm Left Blood Culture - Final No growth in 5 days. 12/08/19 22:30 Blood Culture (Wb) - Anticubital Left Blood Culture - Final No growth in 5 days. 12/11/19 07:12 Blood Culture (Wb) - Right Hand Blood Culture - Preliminary No growth in 48 hours. 12/10/19 23:45 Blood Culture (Wb) - Anticubital Right Bacteria Detection (PCR) - Final Coag Negative Staph 12/10/19 23:45 Blood Culture (Wb) - Anticubital Right Blood Culture - Preliminary Coag Negative Staph Laboratory Results 12/14/19 02:14: WBC 8.3, RBC 3.08 L, Hgb 8.8 L, Hct 29.6 L, MCV 96.1, MCH 28.6, MCHC 29.7 L, RDW Std Deviation 56.6 H, RDW Coeff of Lanre 15.9 H, Plt Count 309, MPV 11.0, Immature Gran % (Auto) 4.900 H, Neut % (Auto) 69.2, Lymph % (Auto) 11.5 L, [place] % (Auto) 12.8 H, Eos % (Auto) 1.4, Baso % (Auto) 0.2, Absolute Neuts (auto) 5.7, Absolute Lymphs (auto) 0.95, Nucleated RBC % 0 12/14/19 02:14: Sodium 137, Potassium 4.1, Chloride 111 H, Carbon Dioxide 18.0 L , Anion Gap 8, BUN 25 H, Creatinine 1.47 H, Estim Creat Clear Calc 28.79, Est GFR (MDRD) Af Amer 46 L, Est GFR (MDRD) Non-Af 38 L, BUN/Creatinine Ratio 17.0, Glucose 108 H, Calcium 9.0, Total Bilirubin 0.30, AST 18, ALT 23, Alkaline Phosphatase 83, Total Protein 6.8, Albumin 1.8 L, Globulin 5.0 H, Albumin/Globulin Ratio 0.4 L 12/14/19 11:34: POC Glucose 102 12/14/19 16:32: POC Glucose 89 12/14/19 21:22: POC Glucose 111 H 12/15/19 06:18: APTT Pending 12/15/19 06:55: POC Glucose 125 H Current Medications Acetaminophen (Acetaminophen 325 Mg Tablet) 650 mg PO Q4H PRN PRN PRN Reason: TEMP > 100 Last Admin: 12/14/19 20:00 Dose: 650 mg Documented by: Al Hydroxide/Mg Hydroxide (Mag Hydrox/Al Hydrox/Simeth 30 Ml Udc) 30 ml PO Q6H PRN PRN PRN Reason: Gastric Burning Albuterol Sulfate (Albuterol 2.5 Mg/3 Ml Vial.Neb.) 2.5 mg INHALATION Q2H PRN PRN PRN Reason: sob/wheezing Albuterol/Ipratropium (Ipratropium/Albuterol Sulfate 3 Ml Ampul.Neb) 3 ml INHALATION Q4HWA.RT [facility] Last Admin: 12/15/19 06:53 Dose: 3 ml Documented by: Allopurinol (Allopurinol 100 Mg Tablet) 100 mg PO DAILY [facility] Last Admin: 12/14/19 09:29 Dose: 100 mg Documented by: Azelastine HCl (Azelastine Hcl Nasal.Sry) 2 spray NASAL BID [facility] Last Admin: 12/14/19 21:26 Dose: 2 spray Documented by: Bisacodyl (Bisacodyl 5 Mg Tablet) 10 mg PO DAILY PRN PRN PRN Reason: Constipation Budesonide (Budesonide Respules 0.5 Mg/2 Ml Ampul.Neb.) 0.5 mg INHALATION Q12H.RT [facility] Last Admin: 12/15/19 06:53 Dose: 0.5 mg Documented by: Dextrose (Dextrose 50%-Water 25 Gm/50 Ml Disp.Syrin) 0 gm IV X1 PRN; Protocol PRN Reason: Hypoglycemia Flecainide Acetate (Flecainide 100 Mg Tablet) 50 mg PO BID [facility] Last Admin: 12/14/19 21:36 Dose: 50 mg Documented by: Glucagon (Glucagon 1 Mg/Ml Syringe) 1 mg IM .X1 PRN PRN Reason: Hypoglycemia Guaifenesin (Guaifenesin 1,200 Mg Tablet) 1,200 mg PO BID [facility] Last Admin: 12/14/19 21:36 Dose: 1,200 mg Documented by: Heparin Sodium (Porcine) (Heparin Injection (Vial) 5,000 Unit/Ml Vial) 0 unit IV UD PRN; Protocol PRN Reason: dose adjustment Last Admin: 12/11/19 20:02 Dose: 1,000 unit Documented by: Sodium Chloride () 250 mls @ 15 mls/hr IV .[id number] PRN PRN Reason: Saline Flush Last Infusion: 12/10/19 16:13 Dose: 0 mls/hr Documented by: Sodium Chloride () 250 mls @ 15 mls/hr IV .[id number] PRN PRN Reason: Additional IVPB Infusion Vancomycin IV Pharmacy to Dose (1 ea/ Sodium Chloride) 500 mls @ 250 mls/hr IV PRN PRN; Protocol PRN Reason: Rx to Dose Heparin Sodium/Dextrose () 25,000 units in 250 mls @ 15 mls/hr IV .[id number] [facility]; Protocol Last Admin: 12/14/19 19:49 Dose: 13 mls/hr Documented by: Vancomycin HCl 1,250 mg/ (Sodium Chloride) 275 mls @ 167 mls/hr IV Q24H [facility] Last Infusion: 12/15/19 04:52 Dose: Infused Documented by: Cefepime HCl 2 gm/ Sodium (Chloride) 100 mls @ 200 mls/hr IV Q12 [facility] Last Infusion: 12/14/19 22:43 Dose: Infused Documented by: Insulin Human Lispro (Insulin Lispro 100 Unit/Ml Insuln.Pen) 0 unit SC ACHS [facility]; Protocol Last Admin: 12/15/19 07:51 Dose: Not Given Documented by: Levothyroxine Sodium (Levothyroxine 25 Mcg Tablet) 25 mcg PO DAILY@0600 [facility] Last Admin: 12/15/19 05:02 Dose: 25 mcg Documented by: Lidocaine (Lidocaine 5% Patch) 2 patch TOPICAL DAILY [facility]; Protocol Montelukast Sodium (Montelukast 10 Mg Tablet) 10 mg PO QHS [facility] Last Admin: 12/14/19 21:36 Dose: 10 mg Documented by: Ondansetron HCl (Ondansetron 4 Mg/2 Ml Vial) 4 mg IV Q8H PRN PRN PRN Reason: NAUSEA/VOMITING Oxycodone HCl (Oxycodone 5 Mg Tablet) 10 mg PO Q4H PRN PRN PRN Reason: Pain Score 4-10 Last Admin: 12/15/19 00:27 Dose: 10 mg Documented by: Pantoprazole Sodium (Pantoprazole Sodium 40 Mg Tablet) 40 mg PO BID [facility] Last Admin: 12/14/19 21:36 Dose: 40 mg Documented by: Polyethylene Glycol (Polyethylene Glycol 3350 17 Gm Packet) 17 gm PO DAILY [facility] Last Admin: 12/14/19 09:30 Dose: 17 gm Documented by: Prochlorperazine Edisylate (Prochlorperazine 10 Mg/2 Ml Vial) 10 mg IV Q6H PRN PRN PRN Reason: Nausea/Vomiting Last Admin: 12/11/19 00:21 Dose: 10 mg Documented by: Senna/Docusate Sodium (Senna/Docusate Sodium 1 Tablet) 2 tablet PO BID PRN PRN PRN Reason: Constipation Last Admin: 12/13/19 22:09 Dose: 1 tablet Documented by: Sodium Chloride (0.9% Saline Lock 10 Ml Syringe) 10 - 40 ml IV UD PRN PRN Reason: SALINE FLUSH Last Admin: 12/14/19 11:39 Dose: 10 ml Documented by: STROKE Vital Signs/Narrative: Vital Signs Temp Pulse Resp BP Pulse Ox 12/15/19 07:00 95 12/15/19 05:00 98.3 F 90 20 H 117/68 95 Medical Necessity - Tobacco Use Smoking Status: Former smoker Assessment/Plan All Active Problems (Last Reviewed 12/09/19 @ 04:[address] Lul Mazariegos MD) COPD with acute exacerbation (Acute) Septic shock (Acute) Septic shock (Acute) Shortness of breath (Acute) Asthma (Acute) ALEXYS (acute kidney injury) (Acute) 1. Septic shock/coag negative bacteremia secondary to right lower lobe pneumonia, resolved Blood cultures growing coagulase negative staph aureus Continue on IV vancomycin and cefepime 2. MRSA/Pseudomonas RLL pneumonia, on IV vancomycin and IV cefepime Continues to spike fevers Sputum cultures on 12/09/19 growing Pseudomonas/MRSA History of Pseudomonas aeruginosa. Covid 19 PCR negative ID following 2. Acute hypoxic respiratory insufficiency secondary to #2, slightly worse Remains on 2 L of oxygen Continue treatment for pneumonia Wean off for SPO2 more than 94% 3. Acute kidney injury, prerenal likely secondary to #1, slowly improving Admitting creatinine is 2.14, baseline creatinine is 1.4 Off lisinopril. We will repeat blood work in a.m. 4. Acute on chronic anemia, status post 1 unit pRBC. No signs of acute blood loss, suspect ongoing loss either GI or due to frequent blood draws CBCD in am 5. Hypertension, BPs are improved. Patient was in septic shock on admission Continue to hold lisinopril, Cardizem We will slowly resume if improved 6. Hypothyroidism, continue on levothyroxine 7. Paroxysmal atrial fibrillation, in normal sinus rhythm, new on flecainide Continue to hold Cardizem on account of recent shock Continue on heparin ip 8. DVT prophylaxis?on heparin drip Inpatient E&M: [id number] Subs Hosp L2
[2019-12-15] MEDS: Acetaminophen 325 MG Tablet 650 MG PO ×3 (08:10→23:35)
[2019-12-15 08:26] LABS: Partial Thromboplast Time 70.6 Seconds (24.1-36.2)
[2019-12-15] MEDS: Azelastine HCl NASAL.SRY 2 SPRAY NASAL ×2 (09:45→22:08)
[2019-12-15] MEDS: guaiFENesin 1,200 MG Tablet 1200 MG PO ×2 (09:46→22:07)
[2019-12-15] MEDS: Polyethylene Glycol 3350 17 GM PACKET PO (09:46)
[2019-12-15] MEDS: Allopurinol 100 MG Tablet PO (09:46)
[2019-12-15] MEDS: Pantoprazole Sodium 40 MG Tablet PO ×2 (09:46→22:07)
[2019-12-15] MEDS: Flecainide 100 MG Tablet 50 MG PO ×2 (09:46→22:07)
[2019-12-15] MEDS: Lidocaine 5% Patch 2 PATCH TOPICAL (09:47)
[2019-12-15 12:40] LABS: Bedside Glucose 118 mg/dL (70-110)
--- NOTE | 2019-12-15 13:45 | PN_ITS ---
Patient Problems: Active and Suspected Problems (Last Reviewed 12/09/19 @ 04:[address] Lul Mazariegos MD) COPD with acute exacerbation (Acute) Septic shock (Acute) Septic shock (Acute) Shortness of breath (Acute) Asthma (Acute) ALEXYS (acute kidney injury) (Acute) Subjective: Patient feels subjectively improved compared to previous. Patient is reporting an increase in sputum volume. Patient continues to spike fevers overnight, but oxygenation has remained stable. Patient believes she is benefiting from pulmonary toileting measures. - Physical Exam Vitals/I&O's: Vital Signs Temp Pulse Resp BP Pulse Ox 37.7 C H 94 19 H 122/64 H 97 12/15/19 12:21 12/15/19 12:21 12/15/19 12:21 12/15/19 12:21 12/15/19 12:21 Oxygen Flow Rate (L/min) 2 Oxygen Delivery Method Nasal Cannula Weight: 114.2 kg Body Mass Index (BMI) 45.8 Intake and Output for Last 24 Hours 12/13/19 12/14/19 12/15/19 23:59 23:59 23:59 Intake Total 2920.47 / 2920.47 1684 1141.83 / 1141.83 Output Total 0 / 0 Balance 2920.47 / 2920.47 1684 1141.83 / 1141.83 General: Alert, Oriented x3, Cooperative, - - Mild conversational dyspnea. Morbidly obese. HEENT: Atraumatic, PERRLA, EOMI, Normocephalic, - - No scleral icterus or injection noted Oral: Moist Mucosa, No Gingival or Mucosal Lesions/ Ulcerations Neck: Supple, No Nodes, Trachea Midline, - - Difficult to assess JVD secondary to body habitus Lungs: No rales, Diminished, Rhonchi - Appears worse compared to yesterday, Wheezes - Sporadic, but improves with coughing Cardiovascular: Normal S1, Normal S2, No murmurs, Irregular Rate, No rub noted, No Gallop Abdomen: Bowel Sounds Present, Soft, Non Tender, Non-Distended, Obese Extremities: No clubbing, No cyanosis, Edema Skin: - - No change compared to previous Musculoskeletal: No Tenderness to Palpation of Joints or Extremities Lymphatic: No Cervical, Supraclavicular, or Inguinal Adenopathy Neurological: Cranial nerves II-XII grossly intact, Neuro grossly intact, Motor Exam 5/5 strength throughout Psych/Mental Status: Alert and oriented to time, place, person, mood and affect Microbiology Past 72 Hours 12/08/19 23:00 Blood Culture (Wb) - Arm Left Blood Culture - Final No growth in 5 days. 12/08/19 22:30 Blood Culture (Wb) - Anticubital Left Blood Culture - Final No growth in 5 days. 12/11/19 07:12 Blood Culture (Wb) - Right Hand Blood Culture - Preliminary No growth in 48 hours. Laboratory Results 12/14/19 16:32: POC Glucose 89 12/14/19 21:22: POC Glucose 111 H 12/15/19 06:18: APTT 70.6 H 12/15/19 06:55: POC Glucose 125 H 12/15/19 12:19: POC Glucose 118 H Current Medications Acetaminophen (Acetaminophen 325 Mg Tablet) 650 mg PO Q4H PRN PRN PRN Reason: TEMP > 100 Last Admin: 12/15/19 08:10 Dose: 650 mg Documented by: Al Hydroxide/Mg Hydroxide (Mag Hydrox/Al Hydrox/Simeth 30 Ml Udc) 30 ml PO Q6H PRN PRN PRN Reason: Gastric Burning Albuterol Sulfate (Albuterol 2.5 Mg/3 Ml Vial.Neb.) 2.5 mg INHALATION Q2H PRN PRN PRN Reason: sob/wheezing Albuterol/Ipratropium (Ipratropium/Albuterol Sulfate 3 Ml Ampul.Neb) 3 ml INHALATION Q4HWA.RT [facility] Last Admin: 12/15/19 10:59 Dose: 3 ml Documented by: Allopurinol (Allopurinol 100 Mg Tablet) 100 mg PO DAILY [facility] Last Admin: 12/15/19 09:46 Dose: 100 mg Documented by: Azelastine HCl (Azelastine Hcl Nasal.Sry) 2 spray NASAL BID [facility] Last Admin: 12/15/19 09:45 Dose: 2 spray Documented by: Bisacodyl (Bisacodyl 5 Mg Tablet) 10 mg PO DAILY PRN PRN PRN Reason: Constipation Budesonide (Budesonide Respules 0.5 Mg/2 Ml Ampul.Neb.) 0.5 mg INHALATION Q12H.RT [facility] Last Admin: 12/15/19 06:53 Dose: 0.5 mg Documented by: Dextrose (Dextrose 50%-Water 25 Gm/50 Ml Disp.Syrin) 0 gm IV X1 PRN; Protocol PRN Reason: Hypoglycemia Flecainide Acetate (Flecainide 100 Mg Tablet) 50 mg PO BID [facility] Last Admin: 12/15/19 09:46 Dose: 50 mg Documented by: Glucagon (Glucagon 1 Mg/Ml Syringe) 1 mg IM .X1 PRN PRN Reason: Hypoglycemia Guaifenesin (Guaifenesin 1,200 Mg Tablet) 1,200 mg PO BID [facility] Last Admin: 12/15/19 09:46 Dose: 1,200 mg Documented by: Heparin Sodium (Porcine) (Heparin Injection (Vial) 5,000 Unit/Ml Vial) 0 unit IV UD PRN; Protocol PRN Reason: dose adjustment Last Admin: 12/11/19 20:02 Dose: 1,000 unit Documented by: Sodium Chloride () 250 mls @ 15 mls/hr IV .[id number] PRN PRN Reason: Saline Flush Last Infusion: 12/10/19 16:13 Dose: 0 mls/hr Documented by: Sodium Chloride () 250 mls @ 15 mls/hr IV .[id number] PRN PRN Reason: Additional IVPB Infusion Vancomycin IV Pharmacy to Dose (1 ea/ Sodium Chloride) 500 mls @ 250 mls/hr IV PRN PRN; Protocol PRN Reason: Rx to Dose Heparin Sodium/Dextrose () 25,000 units in 250 mls @ 15 mls/hr IV .[id number] [facility]; Protocol Last Titration: 12/15/19 08:39 Dose: 13 mls/hr Documented by: Vancomycin HCl 1,250 mg/ (Sodium Chloride) 275 mls @ 167 mls/hr IV Q24H [facility] Last Infusion: 12/15/19 04:52 Dose: Infused Documented by: Cefepime HCl 2 gm/ Sodium (Chloride) 100 mls @ 200 mls/hr IV Q12 [facility] Last Infusion: 12/15/19 10:15 Dose: Infused Documented by: Insulin Human Lispro (Insulin Lispro 100 Unit/Ml Insuln.Pen) 0 unit SC ACHS [facility]; Protocol Last Admin: 12/15/19 12:20 Dose: Not Given Documented by: Levothyroxine Sodium (Levothyroxine 25 Mcg Tablet) 25 mcg PO DAILY@0600 [facility] Last Admin: 12/15/19 05:02 Dose: 25 mcg Documented by: Lidocaine (Lidocaine 5% Patch) 2 patch TOPICAL DAILY [facility]; Protocol Last Admin: 12/15/19 09:47 Dose: 2 patch Documented by: Montelukast Sodium (Montelukast 10 Mg Tablet) 10 mg PO QHS [facility] Last Admin: 12/14/19 21:36 Dose: 10 mg Documented by: Ondansetron HCl (Ondansetron 4 Mg/2 Ml Vial) 4 mg IV Q8H PRN PRN PRN Reason: NAUSEA/VOMITING Oxycodone HCl (Oxycodone 5 Mg Tablet) 10 mg PO Q4H PRN PRN PRN Reason: Pain Score 4-10 Last Admin: 12/15/19 08:08 Dose: 10 mg Documented by: Pantoprazole Sodium (Pantoprazole Sodium 40 Mg Tablet) 40 mg PO BID [facility] Last Admin: 12/15/19 09:46 Dose: 40 mg Documented by: Polyethylene Glycol (Polyethylene Glycol 3350 17 Gm Packet) 17 gm PO DAILY [facility] Last Admin: 12/15/19 09:46 Dose: 17 gm Documented by: Prochlorperazine Edisylate (Prochlorperazine 10 Mg/2 Ml Vial) 10 mg IV Q6H PRN PRN PRN Reason: Nausea/Vomiting Last Admin: 12/11/19 00:21 Dose: 10 mg Documented by: Senna/Docusate Sodium (Senna/Docusate Sodium 1 Tablet) 2 tablet PO BID PRN PRN PRN Reason: Constipation Last Admin: 12/13/19 22:09 Dose: 1 tablet Documented by: Sodium Chloride (0.9% Saline Lock 10 Ml Syringe) 10 - 40 ml IV UD PRN PRN Reason: SALINE FLUSH Last Admin: 12/14/19 11:39 Dose: 10 ml Documented by: Medical Necessity - Tobacco Use Smoking Status: Former smoker Assessment/Plan All Active Problems (Last Reviewed 12/09/19 @ 04:[address] Lul Mazariegos MD) COPD with acute exacerbation (Acute) Septic shock (Acute) Septic shock (Acute) Shortness of breath (Acute) Asthma (Acute) ALEXYS (acute kidney injury) (Acute) RECOMMENDATIONS: 1. Continue aggressive pain control 2. Continue scheduled bronchodilators and twice daily budesonide. Avoiding systemic steroids 3. Antibiotics per infectious disease 4. Consider diagnostic/therapeutic thoracentesis on the right if IR believes it is safe 5. BiPAP rescue as needed IMPRESSIONS: 1. Septic shock secondary to probable drug-resistant right lower lobe pneumonia Patient with significant right lower lobe infiltrate. Patient has grown Pseudomonas and MRSA in the past, and appears to be growing this again. Patient has remained hemodynamically stable, but did require the need for BiPAP rescue overnight. Stressed to the patient the importance of aggressive pulmonary toileting. Patient with worsening in chest pain. CT scan shows a right pleural effusion. Patient would have risk factors for a transudate physiology, but parapneumonic effusion would also be a concern. If IR thought it was big enough to safely tap, a therapeutic/diagnostic thoracentesis would be helpful. Antibiotics per infectious disease. Another option would be to consider bronchoscopy. Alternative sources of fever would include DVT or PE, but patient has been therapeutically anticoagulated throughout. Patient has not received Compazine in several days. Congestive heart failure would be another concern, but this would not necessarily lead to fever. 2. Anemia Patient's H&H went up slightly compared to yesterday. Would continue with heparin drip for now until condition stabilizes and it is clear that she will not require any interventions. Okay to continue with PPI twice daily for now. No indication for transfusion at this time. We will recheck labs tomorrow 3. Acute kidney injury Improving. Likely prerenal in etiology. Creatinine is improving with volume expansion. Continue to hold antihypertensives and diuretics. 4. History of moderate persistent asthma and steroid induced myopathy/history of organizing pneumonia The patient is currently maintaining appropriate oxygen saturations on room air but did have a high-grade fever and purulent sputum production. Therefore, we will continue broad-spectrum antimicrobials. CT of the chest is showing a significant right lower lobe pneumonia, but now appears to have a pleural effusion. Patient will likely need a follow-up CT scan to evaluate for a central obstruction. Avoid systemic steroids, if possible. 5. History of lung nodules/GERD/paroxysmal atrial fibrillation/history of DVT/PE/anxiety/hypothyroidism/heart failure with preserved ejection fraction Complicates care, management, recovery and prognosis. Continue to hold home antihypertensives. Heparin will be needed to be held for thoracentesis. TSH level was within normal limits. 6. Acute hypoxic respiratory failure secondary to #1 Patient with BiPAP rescue overnight. Patient likely has an element of obstructive sleep apnea and dense consolidation leading to decompensation. Fever curve is appears to be worsening on current antibiotics. Continue with BiPAP rescue as necessary. Attempting to avoid systemic steroids secondary to a history of critical care neuropathy. Inpatient E&M: 27441 Subs Hosp L2
[2019-12-15] MEDS: HEPARIN/D5w 25,000 UNITS 25,000 UNITS/250 ML IV.SOLN. 13 UNITS IV (16:22)
[2019-12-15 16:40] LABS: Bedside Glucose 89 mg/dL (70-110)
[2019-12-15] MEDS: Montelukast 10 MG Tablet PO (22:07)
[2019-12-15 23:20] LABS: Bedside Glucose 122 mg/dL (70-110)
[2019-12-15] MEDS: Bisacodyl 5 MG Tablet 10 MG PO (23:35)
[2019-12-16] VITALS (16 sets, daily range): BP systolic 134–148; BP diastolic 66–72; PULSE 82–98; RESP 14–21; TEMP 37.4–38.5; O2SAT 94–98
[2019-12-16] MEDS: oxyCODONE 5 MG Tablet 10 MG PO ×3 (03:39→22:17)
[2019-12-16 06:09] LABS: Hematocrit 27.5 % (37-47); Hemoglobin 8.2 g/dL (12.0-15.0); Mean Corp Hgb Conc 29.8 g/dL (32-36); Mean Corpuscular Hgb 28.2 pg (27.0-32.0); Mean Corpuscular Volume 94.5 fL (81-99); Mean Platelet Vol. 10.2 fl (6.2-12.0); POSITIVE COUNT YES; POSITIVE MORPHOLOGY YES; Platelet Count 350 K/mm3 (150-450); RBC Distribution Width CV 16.2 % (11.6-14.6); RBC Distribution Width SD 56.7 fl (35.1-43.9); Red Blood Count 2.91 M/mm3 (4.2-5.4); White Blood Count 9.6 K/mm3 (4.4-11.0)
[2019-12-16 06:14] LABS: Partial Thromboplast Time 60.9 Seconds (24.1-36.2)
[2019-12-16 06:17] LABS: Differential Indicated MANUAL DIFF
[2019-12-16 06:33] LABS: ALB/GLOB Ratio 0.3 RATIO (0.9-2.4); AST(SGOT) 29 U/L (15-37); Alanine Aminotransfer ALT/SGPT 32 U/L (13-56); Albumin, Serum 1.6 g/dL (3.2-5.0); Alkaline Phosphatase 82 U/L (45-117); Anion Gap 8 (5-15); BUN 32 mg/dL (7-18); BUN/Creat Ratio 17.9 RATIO (10-20); Calcium,Total 9.1 mg/dL (8.5-10.1); Chloride 114 mmol/L (98-107); Creatinine, Serum 1.79 mg/dL (0.55-1.02); EST Glomerular Filtration Rate 30 mL/min (>60); Est Glom Filt Rate - Afr Amer 36 mL/min (>60); Estimated Creatinine Clearance 23.64 ml/min; Globulin 4.9 g/dL (2.2-4.2); Glucose 114 mg/dL (74-106); Potassium 4.2 mmol/L (3.5-5.1); Protein, Total 6.5 g/dL (6.4-8.2); Sodium Level 139 mmol/L (136-145)
[2019-12-16] MEDS: Levothyroxine 25 MCG TABLET PO (06:54)
[2019-12-16 07:01] LABS: Bedside Glucose 101 mg/dL (70-110)
[2019-12-16 07:07] LABS: Eosinophil 5 % (0-5); Lymphocyte 12 % (19-41); Metamyelocyte 4 % (0-1); Monocyte 12 % (0-10); Neutrophil-Band 18 % (0-5); Neutrophil-Segmented 49 % (47-70); Total Cells Counted 100 (MANUAL DIFF)
[2019-12-16 07:09] LABS: Absolute Lymphocyte Count 1.15 X10^3/uL (0.83-4.51); Absolute Neutrophil Count 6.4 X10^3/uL (2.0-7.7); Lymphocyte # 1.15 X10^3/ul (4.0); Neutrophil # 6.44 X10^3/uL (2.7-7.7)
[2019-12-16 07:10] LABS: Anisocytosis 1+; Hypochromasia 1+; Platelet Estimate ADEQUATE (ADEQ); Polychromasia RARE
[2019-12-16] MEDS: Ipratropium/Albuterol Sulfate 3 ML AMPUL.NEB INHALATION ×6 (07:24→22:43)
[2019-12-16] MEDS: Budesonide Respules 0.5 MG/2 ML AMPUL.NEB. INHALATION ×2 (07:24→19:22)
--- NOTE | 2019-12-16 08:32 | PN_ITS ---
Patient Problems: Active and Suspected Problems (Last Reviewed 12/09/19 @ 04:[address] Lul Mazariegos MD) COPD with acute exacerbation (Acute) Septic shock (Acute) Septic shock (Acute) Shortness of breath (Acute) Asthma (Acute) ALEXYS (acute kidney injury) (Acute) Subjective: Patient reports significant improvement compared to yesterday. Patient is having a good response to vest therapy and feels this is helping significantly. Patient states her volume of sputum is slightly improved compared to yesterday. Patient also has had improved fever curve. No hemoptysis is been reported. - Physical Exam Vitals/I&O's: Vital Signs Temp Pulse Resp BP Pulse Ox 37.4 C H 90 20 H 134/66 H 98 12/16/19 03:38 12/16/19 07:25 12/16/19 07:25 12/16/19 03:38 12/16/19 07:25 Oxygen Flow Rate (L/min) 2 Oxygen Delivery Method Nasal Cannula Weight: 114 kg Body Mass Index (BMI) 45.8 Intake and Output for Last 24 Hours 12/14/19 12/15/19 12/16/19 23:59 23:59 22:59 Intake Total 1684 1525.00 / 1525.00 450 / 450 Output Total 0 / 0 Balance 1684 1525.00 / 1525.00 450 / 450 General: Alert, Oriented x3, Cooperative, - - Mild conversational dyspnea. Morbidly obese. HEENT: Atraumatic, PERRLA, EOMI, Normocephalic, - - No scleral icterus or injection noted Oral: Moist Mucosa, No Gingival or Mucosal Lesions/ Ulcerations Neck: Supple, No JVD, No Nodes, Trachea Midline Lungs: No wheeze, No rales, Diminished, Rhonchi - Right base, - - Symmetric expansion. Cardiovascular: Regular rate, Regular Rhythm, Normal S1, Normal S2, No murmurs, No rub noted, No Gallop Abdomen: Bowel Sounds Present, Soft, Non Tender, Non-Distended, Obese Extremities: No clubbing, No cyanosis, No edema Skin: - Musculoskeletal: No Tenderness to Palpation of Joints or Extremities - No change compared to previous Lymphatic: No Cervical, Supraclavicular, or Inguinal Adenopathy Neurological: Cranial nerves II-XII grossly intact, Neuro grossly intact, Motor Exam 5/5 strength throughout Psych/Mental Status: Alert and oriented to time, place, person, mood and affect Microbiology Past 72 Hours 12/11/19 07:12 Blood Culture (Wb) - Right Hand Blood Culture - Final No growth in 5 days. 12/10/19 23:45 Blood Culture (Wb) - Anticubital Right Bacteria Detection (PCR) - Final Coag Negative Staph 12/10/19 23:45 Blood Culture (Wb) - Anticubital Right Blood Culture - Final Coag Negative Staph 12/08/19 23:00 Blood Culture (Wb) - Arm Left Blood Culture - Final No growth in 5 days. 12/08/19 22:30 Blood Culture (Wb) - Anticubital Left Blood Culture - Final No growth in 5 days. Laboratory Results 12/15/19 12:19: POC Glucose 118 H 12/15/19 16:34: POC Glucose 89 12/15/19 22:00: POC Glucose 122 H 12/16/19 04:55: WBC 9.6, RBC 2.91 L, Hgb 8.2 L, Hct 27.5 L, MCV 94.5, MCH 28.2, MCHC 29.8 L, RDW Std Deviation 56.7 H, RDW Coeff of Lanre 16.2 H, Plt Count 350, MPV 10.2, Neut % (Auto) Not Reportable, Absolute Neuts (auto) 6.4, Absolute Lymphs (auto) 1.15, Total Counted 100, Neutrophils % (Manual) 49, Band Neutrophils % 18 H, Lymphocytes % (Manual) 12 L, Monocytes % (Manual) 12 H, Eo sinophils % (Manual) 5, Metamyelocytes % 4 H, Diff Path Review May foll, Platelet Estimate ADEQUATE, Polychromasia RARE, Hypochromasia 1+, Anisocytosis 1+ 12/16/19 04:55: Sodium 139, Potassium 4.2, Chloride 114 H, Carbon Dioxide 17.0 L , Anion Gap 8, BUN 32 H, Creatinine 1.79 H, Estim Creat Clear Calc 23.64, Est GFR (MDRD) Af Amer 36 L, Est GFR (MDRD) Non-Af 30 L, BUN/Creatinine Ratio 17.9, Glucose 114 H, Calcium 9.1, Total Bilirubin 0.30, AST 29, ALT 32, Alkaline Phosphatase 82, Total Protein 6.5, Albumin 1.6 L, Globulin 4.9 H, Albumin/Globulin Ratio 0.3 L 12/16/19 04:55: APTT 60.9 H 12/16/19 06:56: POC Glucose 101 Current Medications Acetaminophen (Acetaminophen 325 Mg Tablet) 650 mg PO Q4H PRN PRN PRN Reason: TEMP > 100 Last Admin: 12/15/19 23:35 Dose: 650 mg Documented by: Al Hydroxide/Mg Hydroxide (Mag Hydrox/Al Hydrox/Simeth 30 Ml Udc) 30 ml PO Q6H PRN PRN PRN Reason: Gastric Burning Albuterol Sulfate (Albuterol 2.5 Mg/3 Ml Vial.Neb.) 2.5 mg INHALATION Q2H PRN PRN PRN Reason: sob/wheezing Albuterol/Ipratropium (Ipratropium/Albuterol Sulfate 3 Ml Ampul.Neb) 3 ml INHALATION Q4HWA.RT [facility] Last Admin: 12/16/19 07:24 Dose: 3 ml Documented by: Allopurinol (Allopurinol 100 Mg Tablet) 100 mg PO DAILY [facility] Last Admin: 12/15/19 09:46 Dose: 100 mg Documented by: Azelastine HCl (Azelastine Hcl Nasal.Sry) 2 spray NASAL BID [facility] Last Admin: 12/15/19 22:08 Dose: 2 spray Documented by: Bisacodyl (Bisacodyl 5 Mg Tablet) 10 mg PO DAILY PRN PRN PRN Reason: Constipation Last Admin: 12/15/19 23:35 Dose: 10 mg Documented by: Budesonide (Budesonide Respules 0.5 Mg/2 Ml Ampul.Neb.) 0.5 mg INHALATION Q12H.RT [facility] Last Admin: 12/16/19 07:24 Dose: 0.5 mg Documented by: Dextrose (Dextrose 50%-Water 25 Gm/50 Ml Disp.Syrin) 0 gm IV X1 PRN; Protocol PRN Reason: Hypoglycemia Enoxaparin Sodium (Enoxaparin 120 Mg/0.8 Ml Syringe) 110 mg SC DAILY [facility] Flecainide Acetate (Flecainide 100 Mg Tablet) 50 mg PO BID [facility] Last Admin: 12/15/19 22:07 Dose: 50 mg Documented by: Glucagon (Glucagon 1 Mg/Ml Syringe) 1 mg IM .X1 PRN PRN Reason: Hypoglycemia Guaifenesin (Guaifenesin 1,200 Mg Tablet) 1,200 mg PO BID [facility] Last Admin: 12/15/19 22:07 Dose: 1,200 mg Documented by: Sodium Chloride () 250 mls @ 15 mls/hr IV .[id number] PRN PRN Reason: Saline Flush Last Infusion: 12/10/19 16:13 Dose: 0 mls/hr Documented by: Sodium Chloride () 250 mls @ 15 mls/hr IV .[id number] PRN PRN Reason: Additional IVPB Infusion Vancomycin IV Pharmacy to Dose (1 ea/ Sodium Chloride) 500 mls @ 250 mls/hr IV PRN PRN; Protocol PRN Reason: Rx to Dose Vancomycin HCl 1,250 mg/ (Sodium Chloride) 275 mls @ 167 mls/hr IV Q24H [facility] Last Admin: 12/16/19 03:40 Dose: 167 mls/hr Documented by: Cefepime HCl 2 gm/ Sodium (Chloride) 100 mls @ 200 mls/hr IV Q12 [facility] Last Infusion: 12/15/19 22:45 Dose: Infused Documented by: Insulin Human Lispro (Insulin Lispro 100 Unit/Ml Insuln.Pen) 0 unit SC ACHS [facility]; Protocol Last Admin: 12/16/19 06:57 Dose: Not Given Documented by: Levothyroxine Sodium (Levothyroxine 25 Mcg Tablet) 25 mcg PO DAILY@0600 [facility] Last Admin: 12/16/19 06:54 Dose: 25 mcg Documented by: Lidocaine (Lidocaine 5% Patch) 2 patch TOPICAL DAILY [facility]; Protocol Last Admin: 12/15/19 09:47 Dose: 2 patch Documented by: Montelukast Sodium (Montelukast 10 Mg Tablet) 10 mg PO QHS [facility] Last Admin: 12/15/19 22:07 Dose: 10 mg Documented by: Ondansetron HCl (Ondansetron 4 Mg/2 Ml Vial) 4 mg IV Q8H PRN PRN PRN Reason: NAUSEA/VOMITING Oxycodone HCl (Oxycodone 5 Mg Tablet) 10 mg PO Q4H PRN PRN PRN Reason: Pain Score 4-10 Last Admin: 12/16/19 03:39 Dose: 10 mg Documented by: Pantoprazole Sodium (Pantoprazole Sodium 40 Mg Tablet) 40 mg PO BID [facility] Last Admin: 12/15/19 22:07 Dose: 40 mg Documented by: Polyethylene Glycol (Polyethylene Glycol 3350 17 Gm Packet) 17 gm PO DAILY [facility] Last Admin: 12/15/19 09:46 Dose: 17 gm Documented by: Prochlorperazine Edisylate (Prochlorperazine 10 Mg/2 Ml Vial) 10 mg IV Q6H PRN PRN PRN Reason: Nausea/Vomiting Last Admin: 12/11/19 00:21 Dose: 10 mg Documented by: Senna/Docusate Sodium (Senna/Docusate Sodium 1 Tablet) 2 tablet PO BID PRN PRN PRN Reason: Constipation Last Admin: 12/13/19 22:09 Dose: 1 tablet Documented by: Sodium Chloride (0.9% Saline Lock 10 Ml Syringe) 10 - 40 ml IV UD PRN PRN Reason: SALINE FLUSH Last Admin: 12/14/19 11:39 Dose: 10 ml Documented by: Medical Necessity - Tobacco Use Smoking Status: Former smoker Assessment/Plan All Active Problems (Last Reviewed 12/09/19 @ 04:[address] Lul Mazariegos MD) COPD with acute exacerbation (Acute) Septic shock (Acute) Septic shock (Acute) Shortness of breath (Acute) Asthma (Acute) ALEXYS (acute kidney injury) (Acute) RECOMMENDATIONS: 1. Continue aggressive pain control 2. Continue scheduled bronchodilators and twice daily budesonide. Avoiding systemic steroids 3. Antibiotics per infectious disease 4. Consider diagnostic/therapeutic thoracentesis on the right if IR believes it is safe 5. BiPAP rescue as needed IMPRESSIONS: 1. Septic shock secondary to probable drug-resistant right lower lobe pneumonia Patient with significant right lower lobe infiltrate. Patient has grown Pseudomonas and MRSA in the past, and appears to be growing this again. Patient has remained hemodynamically stable, but did require the need for BiPAP rescue overnight. Stressed to the patient the importance of aggressive pulmonary toileting. Patient with worsening in chest pain. CT scan shows a right pleural effusion. Patient would have risk factors for a transudate physiology, but parapneumonic effusion would also be a concern. If IR thought it was big enough to safely tap, a therapeutic/diagnostic thoracentesis would be helpful. Antibiotics per infectious disease. Doubt bronchoscopy will be necessary given patient's continued improvement with pulmonary toileting. Patient does remain on aggressive pulmonary toileting. Wean oxygen as tolerated. 2. Anemia Patient's H&H went up slightly compared to yesterday. Would continue with heparin drip for now until condition stabilizes and it is clear that she will not require any interventions. Okay to continue with PPI twice daily for now. No indication for transfusion at this time. 3. Acute kidney injury Stable. Likely prerenal in etiology. Creatinine is improving with volume expansion. Continue to hold antihypertensives and diuretics. Patient does have an element of non-anion gap metabolic acidosis. We will continue to monitor. 4. History of moderate persistent asthma and steroid induced myopathy/history of organizing pneumonia The patient is currently maintaining appropriate oxygen saturations on room air but did have a high-grade fever and purulent sputum production. Therefore, we will continue broad-spectrum antimicrobials. CT of the chest is showing a significant right lower lobe pneumonia, but now appears to have a pleural effusion. Patient will likely need a follow-up CT scan to evaluate for a central obstruction in the future. Avoid systemic steroids, if possible. 5. History of lung nodules/GERD/paroxysmal atrial fibrillation/history of DVT/PE/anxiety/hypothyroidism/heart failure with preserved ejection fraction Complicates care, management, recovery and prognosis. Continue to hold home antihypertensives. Heparin will be needed to be held for thoracentesis. TSH level was within normal limits. 6. Acute hypoxic respiratory failure secondary to #1 Patient with BiPAP rescue overnight. Patient likely has an element of obstructive sleep apnea and dense consolidation leading to decompensation. Fever curve is appears to be worsening on current antibiotics. Continue with BiPAP rescue as necessary. Attempting to avoid systemic steroids secondary to a history of critical care neuropathy. Inpatient E&M: 80659 Subs Hosp L2
[2019-12-16] MEDS: Flecainide 100 MG Tablet 50 MG PO ×2 (09:16→22:17)
[2019-12-16] MEDS: Allopurinol 100 MG Tablet PO (09:16)
[2019-12-16] MEDS: Pantoprazole Sodium 40 MG Tablet PO ×2 (09:16→22:17)
[2019-12-16] MEDS: Enoxaparin 120 MG/0.8 ML Syringe 110 MG SC (09:17)
[2019-12-16] MEDS: guaiFENesin 1,200 MG Tablet 1200 MG PO ×2 (09:17→22:17)
[2019-12-16] MEDS: Polyethylene Glycol 3350 17 GM PACKET PO (09:17)
[2019-12-16] MEDS: Lidocaine 5% Patch 2 PATCH TOPICAL (09:18)
[2019-12-16] MEDS: Azelastine HCl NASAL.SRY 2 SPRAY NASAL (09:19)
[2019-12-16] MEDS: Furosemide 20 MG/2 ML VIAL IV (09:24)
[2019-12-16 11:31] LABS: Bedside Glucose 119 mg/dL (70-110)
[2019-12-16] MEDS: Acetaminophen 325 MG Tablet 650 MG PO (14:40)
[2019-12-16 17:05] LABS: Bedside Glucose 89 mg/dL (70-110)
--- NOTE | 2019-12-16 17:32 | PCM.PN.HOSP ---
Patient Problems: Active and Suspected Problems (Last Reviewed 12/09/19 @ 04:[address] Lul Mazariegos MD) COPD with acute exacerbation (Acute) Septic shock (Acute) Septic shock (Acute) Shortness of breath (Acute) Asthma (Acute) ALEXYS (acute kidney injury) (Acute) Reason for Visit: Follow-up on septic shock/coag negative bacteremia/RLL pneumonia Subjective: It was seen examined. She stated she feels much improved. She thinks that the vest therapy is helping. Still having spikes of fever. Objective: Physical exam: General: Alert, Oriented x3, Cooperative, on 2 L of oxygen, morbidly obese HEENT: Atraumatic, PERRLA, EOMI, Normocephalic Neck: Supple, Trachea Midline, RIJ central line Lungs: Diminished breath sounds, crackles in the right lower lung Cardiovascular: Normal S1, Normal S2, No murmurs, Tachycardic Abdomen: Bowel Sounds Present, Soft, Non Tender Extremities: No edema, Capillary Refill Less than 3 Seconds Skin: No rashes, No breakdown Musculoskeletal: No Tenderness to Palpation of Joints or Extremities Neurological: Cranial nerves II-XII grossly intact Psych/Mental Status: Normal Affect, Appropriate Vitals/I&O's: Vital Signs Temp Pulse Resp BP Pulse Ox 99.3 F H 82 17 134/72 H 96 12/16/19 17:03 12/16/19 15:35 12/16/19 15:35 12/16/19 14:35 12/16/19 14:35 Oxygen Flow Rate (L/min) 2 Oxygen Delivery Method Nasal Cannula Weight: 114.4 kg Body Mass Index (BMI) 45.8 Intake and Output for Last 24 Hours 12/14/19 12/15/19 12/16/19 23:59 23:59 22:59 Intake Total 1684 1525.00 / 1525.00 1425 / 1425 Output Total 0 / 0 Balance 1684 1525.00 / 1525.00 1425 / 1425 Microbiology Past 72 Hours 12/11/19 07:12 Blood Culture (Wb) - Right Hand Blood Culture - Final No growth in 5 days. 12/10/19 23:45 Blood Culture (Wb) - Anticubital Right Bacteria Detection (PCR) - Final Coag Negative Staph 12/10/19 23:45 Blood Culture (Wb) - Anticubital Right Blood Culture - Final Coag Negative Staph 12/08/19 23:00 Blood Culture (Wb) - Arm Left Blood Culture - Final No growth in 5 days. 12/08/19 22:30 Blood Culture (Wb) - Anticubital Left Blood Culture - Final No growth in 5 days. Laboratory Results 12/15/19 22:00: POC Glucose 122 H 12/16/19 04:55: WBC 9.6, RBC 2.91 L, Hgb 8.2 L, Hct 27.5 L, MCV 94.5, MCH 28.2, MCHC 29.8 L, RDW Std Deviation 56.7 H, RDW Coeff of Lanre 16.2 H, Plt Count 350, MPV 10.2, Neut % (Auto) Not Reportable, Absolute Neuts (auto) 6.4, Absolute Lymphs (auto) 1.15, Total Counted 100, Neutrophils % (Manual) 49, Band Neutrophils % 18 H, Lymphocytes % (Manual) 12 L, Monocytes % (Manual) 12 H, Eosinophils % (Manual) 5, Metamyelocytes % 4 H, Diff Path Review May foll, Platelet Estimate ADEQUATE, Polychromasia RARE, Hypochromasia 1+, Anisocytosis 1+ 12/16/19 04:55: Sodium 139, Potassium 4.2, Chloride 114 H, Carbon Dioxide 17.0 L, Anion Gap 8, BUN 32 H, Creatinine 1.79 H, Estim Creat Clear Calc 23.64, Est GFR (MDRD) Af Amer 36 L, Est GFR (MDRD) Non-Af 30 L, BUN/Creatinine Ratio 17.9, Glucose 114 H, Calcium 9.1, Total Bilirubin 0.30, AST 29, ALT 32, Alkaline Phosphatase 82, Total Protein 6.5, Albumin 1.6 L, Globulin 4.9 H, Albumin/Globulin Ratio 0.3 L 12/16/19 04:55: APTT 60.9 H 12/16/19 06:56: POC Glucose 101 12/16/19 11:20: POC Glucose 119 H 12/16/19 16:59: POC Glucose 89 Current Medications Acetaminophen (Acetaminophen 325 Mg Tablet) 650 mg PO Q4H PRN PRN PRN Reason: TEMP > 100 Last Admin: 12/16/19 14:40 Dose: 650 mg Documented by: Al Hydroxide/Mg Hydroxide (Mag Hydrox/Al Hydrox/Simeth 30 Ml Udc) 30 ml PO Q6H PRN PRN PRN Reason: Gastric Burning Albuterol Sulfate (Albuterol 2.5 Mg/3 Ml Vial.Neb.) 2.5 mg INHALATION Q2H PRN PRN PRN Reason: sob/wheezing Albuterol/Ipratropium (Ipratropium/Albuterol Sulfate 3 Ml Ampul.Neb) 3 ml INHALATION Q4HWA.RT [facility] Last Admin: 12/16/19 15:23 Dose: 3 ml Documented by: Allopurinol (Allopurinol 100 Mg Tablet) 100 mg PO DAILY [facility] Last Admin: 12/16/19 09:16 Dose: 100 mg Documented by: Azelastine HCl (Azelastine Hcl Nasal.Sry) 2 spray NASAL BID [facility] Last Admin: 12/16/19 09:19 Dose: 2 spray Documented by: Bisacodyl (Bisacodyl 5 Mg Tablet) 10 mg PO DAILY PRN PRN PRN Reason: Constipation Last Admin: 12/15/19 23:35 Dose: 10 mg Documented by: Budesonide (Budesonide Respules 0.5 Mg/2 Ml Ampul.Neb.) 0.5 mg INHALATION Q12H.RT [facility] Last Admin: 12/16/19 07:24 Dose: 0.5 mg Documented by: Dextrose (Dextrose 50%-Water 25 Gm/50 Ml Disp.Syrin) 0 gm IV X1 PRN; Protocol PRN Reason: Hypoglycemia Enoxaparin Sodium (Enoxaparin 120 Mg/0.8 Ml Syringe) 110 mg SC DAILY [facility] Last Admin: 12/16/19 09:17 Dose: 110 mg Documented by: Flecainide Acetate (Flecainide 100 Mg Tablet) 50 mg PO BID [facility] Last Admin: 12/16/19 09:16 Dose: 50 mg Documented by: Glucagon (Glucagon 1 Mg/Ml Syringe) 1 mg IM .X1 PRN PRN Reason: Hypoglycemia Guaifenesin (Guaifenesin 1,200 Mg Tablet) 1,200 mg PO BID [facility] Last Admin: 12/16/19 09:17 Dose: 1,200 mg Documented by: Sodium Chloride () 250 mls @ 15 mls/hr IV .[id number] PRN PRN Reason: Saline Flush Last Infusion: 12/16/19 09:25 Dose: 15 mls/hr Documented by: Sodium Chloride () 250 mls @ 15 mls/hr IV .[id number] PRN PRN Reason: Additional IVPB Infusion Vancomycin IV Pharmacy to Dose (1 ea/ Sodium Chloride) 500 mls @ 250 mls/hr IV PRN PRN; Protocol PRN Reason: Rx to Dose Vancomycin HCl 1,250 mg/ (Sodium Chloride) 275 mls @ 167 mls/hr IV Q24H [facility] Last Infusion: 12/16/19 11:04 Dose: Infused Documented by: Cefepime HCl 2 gm/ Sodium (Chloride) 100 mls @ 200 mls/hr IV Q12 [facility] Last Infusion: 12/16/19 09:47 Dose: Infused Documented by: Insulin Human Lispro (Insulin Lispro 100 Unit/Ml Insuln.Pen) 0 unit SC ACHS [facility]; Protocol Last Admin: 12/16/19 17:04 Dose: Not Given Documented by: Levothyroxine Sodium (Levothyroxine 25 Mcg Tablet) 25 mcg PO DAILY@0600 [facility] Last Admin: 12/16/19 06:54 Dose: 25 mcg Documented by: Lidocaine (Lidocaine 5% Patch) 2 patch TOPICAL DAILY [facility]; Protocol Last Admin: 12/16/19 09:18 Dose: 2 patch Documented by: Montelukast Sodium (Montelukast 10 Mg Tablet) 10 mg PO QHS [facility] Last Admin: 12/15/19 22:07 Dose: 10 mg Documented by: Ondansetron HCl (Ondansetron 4 Mg/2 Ml Vial) 4 mg IV Q8H PRN PRN PRN Reason: NAUSEA/VOMITING Oxycodone HCl (Oxycodone 5 Mg Tablet) 10 mg PO Q4H PRN PRN PRN Reason: Pain Score 4-10 Last Admin: 12/16/19 11:48 Dose: 10 mg Documented by: Pantoprazole Sodium (Pantoprazole Sodium 40 Mg Tablet) 40 mg PO BID [facility] Last Admin: 12/16/19 09:16 Dose: 40 mg Documented by: Polyethylene Glycol (Polyethylene Glycol 3350 17 Gm Packet) 17 gm PO DAILY [facility] Last Admin: 12/16/19 09:17 Dose: 17 gm Documented by: Prochlorperazine Edisylate (Prochlorperazine 10 Mg/2 Ml Vial) 10 mg IV Q6H PRN PRN PRN Reason: Nausea/Vomiting Last Admin: 12/11/19 00:21 Dose: 10 mg Documented by: Senna/Docusate Sodium (Senna/Docusate Sodium 1 Tablet) 2 tablet PO BID PRN PRN PRN Reason: Constipation Last Admin: 12/13/19 22:09 Dose: 1 tablet Documented by: Sodium Chloride (0.9% Saline Lock 10 Ml Syringe) 10 - 40 ml IV UD PRN PRN Reason: SALINE FLUSH Last Admin: 12/14/19 11:39 Dose: 10 ml Documented by: STROKE Vital Signs/Narrative: Vital Signs Temp Pulse Resp BP Pulse Ox 12/16/19 17:03 99.3 F H 12/16/19 15:35 82 17 12/16/19 15:24 96 12/16/19 14:35 101.3 F H 98 14 134/72 H 96 Medical Necessity - Tobacco Use Smoking Status: Former smoker Assessment/Plan All Active Problems (Last Reviewed 12/09/19 @ 04:[address] Lul Mazariegos MD) COPD with acute exacerbation (Acute) Septic shock (Acute) Septic shock (Acute) Shortness of breath (Acute) Asthma (Acute) ALEXYS (acute kidney injury) (Acute) 64-year-old female with multiple comorbidities admitted on 12/09/19 with fever, chills and shortness of breath. 1. Septic shock/coag negative bacteremia secondary to right lower lobe pneumonia, resolved Blood cultures growing coagulase negative staph aureus Continue on IV vancomycin and cefepime 2. MRSA/Pseudomonas RLL pneumonia, on IV vancomycin and IV cefepime Continues to spike fevers Sputum cultures on 12/09/19 growing Pseudomonas/MRSA History of Pseudomonas aeruginosa. Covid 19 PCR negative ID following 2. Acute hypoxic respiratory insufficiency secondary to #2, kayla the same Remains on 2 L of oxygen Continue treatment for pneumonia Wean off for SPO2 more than 94% 3. Acute kidney injury, prerenal likely secondary to #1, slightly worse Admitting creatinine is 2.14, baseline creatinine is 1.4. Cr today is 1.79 Off lisinopril. We will repeat blood work in a.m. 4. Acute on chronic anemia, status post 1 unit pRBC. No signs of acute blood loss, suspect ongoing loss either GI or due to frequent blood draws Hb remains at 8.2 CBCD in am 5. Hypertension, BPs are improved. Patient was in septic shock on admission Continue to hold lisinopril, Cardizem We will slowly resume if improved 6. Hypothyroidism, continue on levothyroxine 7. Paroxysmal atrial fibrillation, in normal sinus rhythm, new on flecainide Continue to hold Cardizem on account of recent shock Continue on Lovenox subcu 8. DVT prophylaxis?enoxaparin subcu Inpatient E&M: 64002 Subs Hosp L2
[2019-12-16] MEDS: Montelukast 10 MG Tablet PO (22:17)
[2019-12-16] MEDS: 0.9% Saline Lock 10 ML Syringe IV (22:23)
[2019-12-16 22:41] LABS: Bedside Glucose 129 mg/dL (70-110)
[2019-12-17] VITALS (17 sets, daily range): BP systolic 110–148; BP diastolic 66–94; PULSE 68–102; RESP 12–24; TEMP 37.1–38.1; O2SAT 95–98
[2019-12-17] MEDS: Acetaminophen 325 MG Tablet 650 MG PO ×3 (03:41→21:21)
[2019-12-17] MEDS: oxyCODONE 5 MG Tablet 10 MG PO ×2 (03:41→21:21)
[2019-12-17] MEDS: Levothyroxine 25 MCG TABLET PO (06:36)
[2019-12-17 06:40] LABS: Bedside Glucose 101 mg/dL (70-110)
[2019-12-17] MEDS: Budesonide Respules 0.5 MG/2 ML AMPUL.NEB. INHALATION ×2 (06:50→19:29)
[2019-12-17] MEDS: Ipratropium/Albuterol Sulfate 3 ML AMPUL.NEB INHALATION ×4 (06:50→19:29)
[2019-12-17 07:38] LABS: Absolute Lymphocyte Count 1.62 X10^3/uL (0.83-4.51); Absolute Neutrophil Count 7.3 X10^3/uL (2.0-7.7); Basophil# 0.05 X10^3/uL; Basophil% 0.5 % (0-1); Eosinophil# 0.18 X10^3/uL; Eosinophils% 1.7 % (0-5); Hematocrit 28.1 % (37-47); Hemoglobin 8.5 g/dL (12.0-15.0); Lymphocyte # 1.62 X10^3/ul (4.0); Lymphocyte % 15.3 % (19-41); Mean Corp Hgb Conc 30.2 g/dL (32-36); Mean Corpuscular Hgb 28.6 pg (27.0-32.0); Mean Corpuscular Volume 94.6 fL (81-99); Mean Platelet Vol. 10.3 fl (6.2-12.0); Monocyte# 0.89 X10^3/uL; Monocyte% 8.4 % (0-10); NRBC Flagged by Analyzer 0 % (0-5); Neutrophil # 7.33 X10^3/uL (2.7-7.7); Neutrophil % 69.5 % (47-70); POSITIVE MORPHOLOGY YES; Platelet Count 394 K/mm3 (150-450); RBC Distribution Width CV 16.2 % (11.6-14.6); RBC Distribution Width SD 55.8 fl (35.1-43.9); Red Blood Count 2.97 M/mm3 (4.2-5.4); White Blood Count 10.6 K/mm3 (4.4-11.0)
[2019-12-17 07:46] LABS: Differential Indicated SCAN CRITERIA MET
[2019-12-17 08:11] LABS: ALB/GLOB Ratio 0.3 RATIO (0.9-2.4); AST(SGOT) 26 U/L (15-37); Alanine Aminotransfer ALT/SGPT 36 U/L (13-56); Albumin, Serum 1.6 g/dL (3.2-5.0); Alkaline Phosphatase 80 U/L (45-117); Anion Gap 11 (5-15); BUN 33 mg/dL (7-18); BUN/Creat Ratio 16.8 RATIO (10-20); Calcium,Total 9.2 mg/dL (8.5-10.1); Chloride 110 mmol/L (98-107); Creatinine, Serum 1.96 mg/dL (0.55-1.02); EST Glomerular Filtration Rate 27 mL/min (>60); Est Glom Filt Rate - Afr Amer 33 mL/min (>60); Estimated Creatinine Clearance 21.59 ml/min; Globulin 5.4 g/dL (2.2-4.2); Glucose 102 mg/dL (74-106); Potassium 3.8 mmol/L (3.5-5.1); Sodium Level 138 mmol/L (136-145)
[2019-12-17 08:13] LABS: Differential Comment SCANNED
[2019-12-17 08:14] LABS: Hypochromasia 3+
[2019-12-17 09:02] LABS: Partial Thromboplast Time 39.7 Seconds (24.1-36.2)
[2019-12-17] MEDS: Allopurinol 100 MG Tablet PO (09:17)
[2019-12-17] MEDS: Lidocaine 5% Patch 2 PATCH TOPICAL (09:17)
[2019-12-17] MEDS: Enoxaparin 120 MG/0.8 ML Syringe 110 MG SC (09:17)
[2019-12-17] MEDS: Azelastine HCl NASAL.SRY 2 SPRAY NASAL ×2 (09:17→21:10)
[2019-12-17] MEDS: Pantoprazole Sodium 40 MG Tablet PO ×2 (09:17→21:07)
[2019-12-17] MEDS: Polyethylene Glycol 3350 17 GM PACKET PO (09:17)
[2019-12-17] MEDS: Flecainide 100 MG Tablet 50 MG PO ×2 (09:18→21:07)
[2019-12-17] MEDS: guaiFENesin 1,200 MG Tablet 1200 MG PO ×2 (09:20→21:07)
--- NOTE | 2019-12-17 09:27 | PCM.RX.CS ---
Consult Pharmacy has been consulted to manage selected antiobiotic: Vancomycin Type of Consult: Follow-up Suspected Infection: Sepsis Labs: Sodium 138 mmol/L (136-145) 12/17/19 07:15 Potassium 3.8 mmol/L (3.5-5.1) 12/17/19 07:15 Chloride 110 mmol/L (98-107) H 12/17/19 07:15 Carbon Dioxide 17.0 mmol/L (21.0-32.0) L 12/17/19 07:15 Anion Gap 11 (5-15) 12/17/19 07:15 BUN 33 mg/dL (7-18) H 12/17/19 07:15 Creatinine 1.96 mg/dL (0.55-1.02) H 12/17/19 07:15 Est GFR (MDRD) Af Amer 33 mL/min (>60) L 12/17/19 07:15 Est GFR (MDRD) Non-Af 27 mL/min (>60) L 12/17/19 07:15 BUN/Creatinine Ratio 16.8 RATIO (-20) 12/17/19 07:15 Glucose 102 mg/dL (74-106) 12/17/19 07:15 Vancomycin Trough 18.5 ug/mL (5.0-15.0) H 12/14/19 02:10 Microbiology: Microbiology 12/11/19 07:12 Blood Culture (Wb) - Right Hand Blood Culture - Final No growth in 5 days. 12/10/19 23:45 Blood Culture (Wb) - Anticubital Right Bacteria Detection (PCR) - Final Coag Negative Staph 12/10/19 23:45 Blood Culture (Wb) - Anticubital Right Blood Culture - Final Coag Negative Staph 12/08/19 23:00 Blood Culture (Wb) - Arm Left Blood Culture - Final No growth in 5 days. 12/08/19 22:30 Blood Culture (Wb) - Anticubital Left Blood Culture - Final No growth in 5 days. 12/09/19 07:55 Sputum, Expectorated/Coughed Gram Stain - Final 12/09/19 07:55 Sputum, Expectorated/Coughed Respiratory Culture - Final Pseudomonas aeroginosa Meth. resistant Staph. aureus 12/09/19 00:30 Urine, Clean Catch Urine Culture - Final Mixed Gram Pos & Gram Neg Org 12/09/19 18:50 Urine, Clean Catch Legionella Antigen - Final 12/09/19 18:50 Urine, Clean Catch Streptococcus pneumoniae Antigen (M - Final 12/08/19 23:15 Mucosa - Nasopharyngeal Respiratory Panel (PCR) - Final Goal Trough: 15-20 mcg/mL Pharmacy Plan for Drug Dosing: DAILY ASSESSMENT Current Vancomcyin Dose:1250mg q24 Number of Doses Received:8 Current Renal Function: 1.96 Renal Function Trend: srcr increasing Lab/Micro: Any Change in Vanc Plan: pt received 12/17/19 dose at 0343. will hold 12/18/19 dose. trough due to be drawn 12/18/19. will re-dose once level comes back Pending Level: 12/18/19 at 0230 Pharmacy Service will continue to monitor and adjust dosing as required. Follow-Up Labs: Trough Vancomycin - 12/17 @ 0230
[2019-12-17 12:18] LABS: Pathologist Review Reviewed
--- NOTE | 2019-12-17 12:42 | PCM.PN.HOSP ---
Patient Problems: Active and Suspected Problems (Last Reviewed 12/09/19 @ 04:[address] Lul Mazariegos MD) COPD with acute exacerbation (Acute) Septic shock (Acute) Septic shock (Acute) Shortness of breath (Acute) Asthma (Acute) ALEXYS (acute kidney injury) (Acute) Reason for Visit: SOB Subjective: ongoing sob, with productive cough. no cp. ongoing fevers, no chills. pt requested probiotic due to hx of cdiff. currently denies diarrhea. Vitals/I&O's: Vital Signs Temp Pulse Resp BP Pulse Ox 98.8 F 95 12 126/66 H 95 12/17/19 09:30 12/17/19 10:15 12/17/19 10:15 12/17/19 09:30 12/17/19 09:30 Oxygen Flow Rate (L/min) 2 Oxygen Delivery Method Nasal Cannula Weight: 246 lb 0.574 oz Body Mass Index (BMI) 45.8 Intake and Output for Last 24 Hours 12/16/19 12/16/19 12/17/19 00:59 23:59 23:59 Intake Total 1125 / 1125 Balance 1125 / 1125 General: Alert, Oriented x3, Cooperative HEENT: Atraumatic, PERRLA, EOMI, Normocephalic Neck: Supple, No JVD, Negative Carotid Bruits Lungs: Clear to auscultation, Normal air movement Cardiovascular: Regular rate, No murmurs Abdomen: Bowel Sounds Present, Soft, Non Tender Extremities: No edema, Capillary Refill Less than 3 Seconds Skin: No rashes, No breakdown Musculoskeletal: No Tenderness to Palpation of Joints or Extremities Neurological: Cranial nerves II-XII grossly intact Psych/Mental Status: Normal Affect, Appropriate, Alert and oriented to time, place, person, mood and affect Microbiology Past 72 Hours 12/11/19 07:12 Blood Culture (Wb) - Right Hand Blood Culture - Final No growth in 5 days. 12/10/19 23:45 Blood Culture (Wb) - Anticubital Right Bacteria Detection (PCR) - Final Coag Negative Staph 12/10/19 23:45 Blood Culture (Wb) - Anticubital Right Blood Culture - Final Coag Negative Staph Laboratory Results 12/16/19 04:55: Diff Path Review Reviewed 12/16/19 16:59: POC Glucose 89 12/16/19 22:22: POC Glucose 129 H 12/17/19 06:34: POC Glucose 101 12/17/19 07:15: WBC 10.6, RBC 2.97 L, Hgb 8.5 L, Hct 28.1 L, MCV 94.6, MCH 28.6, MCHC 30.2 L, RDW Std Deviation 55.8 H, RDW Coeff of Lanre 16.2 H, Plt Count 394, MPV 10.3, Immature Gran % (Auto) 4.600 H, Neut % (Auto) 69.5, Lymph % (Auto) 15.3 L, [place] % (Auto) 8.4, Eos % (Auto) 1.7, Baso % (Auto) 0.5, Absolute Neuts (auto) 7.3, Absolute Lymphs (auto) 1.62, Nucleated RBC % 0, Differential Comment SCANNED, Hypochromasia 3+ 12/17/19 07:15: Sodium 138, Potassium 3.8, Chloride 110 H, Carbon Dioxide 17.0 L, Anion Gap 11, BUN 33 H, Creatinine 1.96 H, Estim Creat Clear Calc 21.59, Est GFR (MDRD) Af Amer 33 L, Est GFR (MDRD) Non-Af 27 L, BUN/Creatinine Ratio 16.8, Glucose 102, Calcium 9.2, Total Bilirubin 0.40, AST 26, ALT 36, Alkaline Phosphatase 80, Total Protein 7.0, Albumin 1.6 L, Globulin 5.4 H, Albumin/Globulin Ratio 0.3 L 12/17/19 07:15: APTT 39.7 H Current Medications Acetaminophen (Acetaminophen 325 Mg Tablet) 650 mg PO Q4H PRN PRN PRN Reason: TEMP > 100 Last Admin: 12/17/19 03:41 Dose: 650 mg Documented by: Al Hydroxide/Mg Hydroxide (Mag Hydrox/Al Hydrox/Simeth 30 Ml Udc) 30 ml PO Q6H PRN PRN PRN Reason: Gastric Burning Albuterol Sulfate (Albuterol 2.5 Mg/3 Ml Vial.Neb.) 2.5 mg INHALATION Q2H PRN PRN PRN Reason: sob/wheezing Albuterol/Ipratropium (Ipratropium/Albuterol Sulfate 3 Ml Ampul.Neb) 3 ml INHALATION Q4HWA.RT [facility] Last Admin: 12/17/19 10:15 Dose: 3 ml Documented by: Allopurinol (Allopurinol 100 Mg Tablet) 100 mg PO DAILY [facility] Last Admin: 12/17/19 09:17 Dose: 100 mg Documented by: Azelastine HCl (Azelastine Hcl Nasal.Sry) 2 spray NASAL BID [facility] Last Admin: 12/17/19 09:17 Dose: 2 spray Documented by: Bisacodyl (Bisacodyl 5 Mg Tablet) 10 mg PO DAILY PRN PRN PRN Reason: Constipation Last Admin: 12/15/19 23:35 Dose: 10 mg Documented by: Budesonide (Budesonide Respules 0.5 Mg/2 Ml Ampul.Neb.) 0.5 mg INHALATION Q12H.RT [facility] Last Admin: 12/17/19 06:50 Dose: 0.5 mg Documented by: Enoxaparin Sodium (Enoxaparin 120 Mg/0.8 Ml Syringe) 110 mg SC DAILY [facility] Last Admin: 12/17/19 09:17 Dose: 110 mg Documented by: Flecainide Acetate (Flecainide 100 Mg Tablet) 50 mg PO BID [facility] Last Admin: 12/17/19 09:18 Dose: 50 mg Documented by: Guaifenesin (Guaifenesin 1,200 Mg Tablet) 1,200 mg PO BID [facility] Last Admin: 12/17/19 09:20 Dose: 1,200 mg Documented by: Sodium Chloride () 250 mls @ 15 mls/hr IV .[id number] PRN PRN Reason: Saline Flush Last Infusion: 12/16/19 09:25 Dose: 15 mls/hr Documented by: Sodium Chloride () 250 mls @ 15 mls/hr IV .[id number] PRN PRN Reason: Additional IVPB Infusion Vancomycin IV Pharmacy to Dose (1 ea/ Sodium Chloride) 500 mls @ 250 mls/hr IV PRN PRN; Protocol PRN Reason: Rx to Dose Cefepime HCl 2 gm/ Sodium (Chloride) 100 mls @ 200 mls/hr IV Q12 [facility] Last Infusion: 12/17/19 09:50 Dose: Infused Documented by: Lactobacillus Acidophilus (Lactobacillus Acidophilus) 1 tablet PO TID [facility] Levothyroxine Sodium (Levothyroxine 25 Mcg Tablet) 25 mcg PO DAILY@0600 [facility] Last Admin: 12/17/19 06:36 Dose: 25 mcg Documented by: Lidocaine (Lidocaine 5% Patch) 2 patch TOPICAL DAILY [facility]; Protocol Last Admin: 12/17/19 09:17 Dose: 2 patch Documented by: Montelukast Sodium (Montelukast 10 Mg Tablet) 10 mg PO QHS [facility] Last Admin: 12/16/19 22:17 Dose: 10 mg Documented by: Ondansetron HCl (Ondansetron 4 Mg/2 Ml Vial) 4 mg IV Q8H PRN PRN PRN Reason: NAUSEA/VOMITING Oxycodone HCl (Oxycodone 5 Mg Tablet) 10 mg PO Q4H PRN PRN PRN Reason: Pain Score 4-10 Last Admin: 12/17/19 03:41 Dose: 10 mg Documented by: Pantoprazole Sodium (Pantoprazole Sodium 40 Mg Tablet) 40 mg PO BID [facility] Last Admin: 12/17/19 09:17 Dose: 40 mg Documented by: Polyethylene Glycol (Polyethylene Glycol 3350 17 Gm Packet) 17 gm PO DAILY [facility] Last Admin: 12/17/19 09:17 Dose: 17 gm Documented by: Prochlorperazine Edisylate (Prochlorperazine 10 Mg/2 Ml Vial) 10 mg IV Q6H PRN PRN PRN Reason: Nausea/Vomiting Last Admin: 12/11/19 00:21 Dose: 10 mg Documented by: Senna/Docusate Sodium (Senna/Docusate Sodium 1 Tablet) 2 tablet PO BID PRN PRN PRN Reason: Constipation Last Admin: 12/13/19 22:09 Dose: 1 tablet Documented by: Sodium Chloride (0.9% Saline Lock 10 Ml Syringe) 10 - 40 ml IV UD PRN PRN Reason: SALINE FLUSH Last Admin: 12/16/19 22:23 Dose: 10 ml Documented by: STROKE Vital Signs/Narrative: Vital Signs Temp Pulse Resp BP Pulse Ox 12/17/19 10:15 95 12 12/17/19 10:00 86 22 H 12/17/19 09:30 98.8 F 86 20 H 126/66 H 95 Medical Necessity - Tobacco Use Smoking Status: Former smoker Assessment/Plan All Active Problems (Last Reviewed 12/09/19 @ 04:[address] Lul Mazariegos MD) COPD with acute exacerbation (Acute) Septic shock (Acute) Septic shock (Acute) Shortness of breath (Acute) Asthma (Acute) ALEXYS (acute kidney injury) (Acute) 1. Septic shock 2/2 RLL pna with Pseudomonas and MRSA, complicated by hx asthma- continue vanc/cefepime. blood cx with coag neg staph. pulm/ID following. ongoing fevers. maintain IV abx for now. Pt of Dr. Bazzi. Failed o/p levaquin/doxy. 2. ALEXYS - worsening renal function. recheck in AM. nephrotoxic agents held. 3. HTN - stable 4. pAfib - NSR. flecainide. cardizem was held for shock. on therapeutic lovenox. plan to resume eliquis at dc. 5. hx cdiff - no diarrhea. pt requests probiotic 6. hypothyroidism - synthroid 7. 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 DVT ppx: lovenox DC planning: ongoing fevers. likely needs home o2. pt declined hhc. This patient was seen by Graham Fraire PA-C under the supervision of Doctor Mitchell.
--- NOTE | 2019-12-17 15:39 | PCM.PN.PUL ---
Patient Problems: Active and Suspected Problems (Last Reviewed 12/09/19 @ 04:[address] Lul Mazariegos MD) COPD with acute exacerbation (Acute) Septic shock (Acute) Septic shock (Acute) Shortness of breath (Acute) Asthma (Acute) ALEXYS (acute kidney injury) (Acute) Subjective: The patient was seen and examined at the bedside this morning. Events from the last 24 hours have been reviewed. The patient is currently afebrile, hemodynamically stable and maintaining appropriate oxygen saturations on 2 L/min via nasal cannula. Objective: The patient's most recent lab work, culture data and imaging studies have all been personally reviewed. Sputum culture dated December 08 was positive for Pseudomonas aeruginosa and MRSA. - Physical Exam Vitals/I&O's: Vital Signs Temp Pulse Resp BP Pulse Ox 99.9 F H 98 12 110/94 H 98 12/17/19 14:48 12/17/19 15:15 12/17/19 14:48 12/17/19 14:48 12/17/19 14:48 Oxygen Flow Rate (L/min) 2 Oxygen Delivery Method Nasal Cannula Weight: 246 lb 0.574 oz Body Mass Index (BMI) 45.8 Intake and Output for Last 24 Hours 12/16/19 12/16/19 12/17/19 00:59 23:59 23:59 Intake Total 1775 / 1775 Balance 1775 / 1775 General: Alert, Cooperative, No apparent distress HEENT: Atraumatic, Normocephalic Oral: No Gingival or Mucosal Lesions/ Ulcerations Neck: Supple, No Nodes, Trachea Midline Lungs: Diminished, Rhonchi Cardiovascular: Regular rate, Regular Rhythm Abdomen: Bowel Sounds Present, Soft, Non Tender, Obese Extremities: No clubbing, No cyanosis, Edema Skin: No breakdown Musculoskeletal: No Muscle Wasting Lymphatic: No Cervical, Supraclavicular, or Inguinal Adenopathy Neurological: Neuro grossly intact Psych/Mental Status: Normal Affect, Appropriate Labs (Last 48 Hours) 12/15/19 12/15/19 12/16/19 16:34 22:00 04:55 WBC 9.6 RBC 2.91 L Hgb 8.2 L Hct 27.5 L MCV 94.5 MCH 28.2 MCHC 29.8 L RDW Std Deviation 56.7 H RDW Coeff of Lanre 16.2 H Plt Count 350 MPV 10.2 Immature Gran % (Auto) Neut % (Auto) Not Reportable Lymph % (Auto) Park % (Auto) Eos % (Auto) Baso % (Auto) Absolute Neuts (auto) 6.4 Absolute Lymphs (auto) 1.15 Total Counted 100 Neutrophils % (Manual) 49 Band Neutrophils % 18 H Lymphocytes % (Manual) 12 L Monocytes % (Manual) 12 H Eosinophils % (Manual) 5 Metamyelocytes % 4 H Nucleated RBC % Differential Comment Diff Path Review Reviewed Platelet Estimate ADEQUATE Polychromasia RARE Hypochromasia 1+ Anisocytosis 1+ APTT Sodium Potassium Chloride Carbon Dioxide Anion Gap BUN Creatinine Estim Creat Clear Calc Est GFR (MDRD) Af Amer Est GFR (MDRD) Non-Af BUN/Creatinine Ratio Glucose Calcium Total Bilirubin AST ALT Alkaline Phosphatase Total Protein Albumin Globulin Albumin/Globulin Ratio POC Glucose 89 122 H 12/16/19 12/16/19 12/16/19 04:55 04:55 06:56 WBC RBC Hgb Hct MCV MCH MCHC RDW Std Deviation RDW Coeff of Lanre Plt Count MPV Immature Gran % (Auto) Neut % (Auto) Lymph % (Auto) Park % (Auto) Eos % (Auto) Baso % (Auto) Absolute Neuts (auto) Absolute Lymphs (auto) Total Counted Neutrophils % (Manual) Band Neutrophils % Lymphocytes % (Manual) Monocytes % (Manual) Eosinophils % (Manual) Metamyelocytes % Nucleated RBC % Differential Comment Diff Path Review Platelet Estimate Polychromasia Hypochromasia Anisocytosis APTT 60.9 H Sodium 139 Potassium 4.2 Chloride 114 H Carbon Dioxide 17.0 L Anion Gap 8 BUN 32 H Creatinine 1.79 H Estim Creat Clear Calc 23.64 Est GFR (MDRD) Af Amer 36 L Est GFR (MDRD) Non-Af 30 L BUN/Creatinine Ratio 17.9 Glucose 114 H Calcium 9.1 Total Bilirubin 0.30 AST 29 ALT 32 Alkaline Phosphatase 82 Total Protein 6.5 Albumin 1.6 L Globulin 4.9 H Albumin/Globulin Ratio 0.3 L POC Glucose 101 12/16/19 12/16/19 12/16/19 11:20 16:59 22:22 WBC RBC Hgb Hct MCV MCH MCHC RDW Std Deviation RDW Coeff of Lanre Plt Count MPV Immature Gran % (Auto) Neut % (Auto) Lymph % (Auto) Park % (Auto) Eos % (Auto) Baso % (Auto) Absolute Neuts (auto) Absolute Lymphs (auto) Total Counted Neutrophils % (Manual) Band Neutrophils % Lymphocytes % (Manual) Monocytes % (Manual) Eosinophils % (Manual) Metamyelocytes % Nucleated RBC % Differential Comment Diff Path Review Platelet Estimate Polychromasia Hypochromasia Anisocytosis APTT Sodium Potassium Chloride Carbon Dioxide Anion Gap BUN Creatinine Estim Creat Clear Calc Est GFR (MDRD) Af Amer Est GFR (MDRD) Non-Af BUN/Creatinine Ratio Glucose Calcium Total Bilirubin AST ALT Alkaline Phosphatase Total Protein Albumin Globulin Albumin/Globulin Ratio POC Glucose 119 H 89 129 H 12/17/19 12/17/19 12/17/19 06:34 07:15 07:15 WBC 10.6 RBC 2.97 L Hgb 8.5 L Hct 28.1 L MCV 94.6 MCH 28.6 MCHC 30.2 L RDW Std Deviation 55.8 H RDW Coeff of Lanre 16.2 H Plt Count 394 MPV 10.3 Immature Gran % (Auto) 4.600 H Neut % (Auto) 69.5 Lymph % (Auto) 15.3 L Park % (Auto) 8.4 Eos % (Auto) 1.7 Baso % (Auto) 0.5 Absolute Neuts (auto) 7.3 Absolute Lymphs (auto) 1.62 Total Counted Neutrophils % (Manual) Band Neutrophils % Lymphocytes % (Manual) Monocytes % (Manual) Eosinophils % (Manual) Metamyelocytes % Nucleated RBC % 0 Differential Comment SCANNED Diff Path Review Platelet Estimate Polychromasia Hypochromasia 3+ Anisocytosis APTT Sodium 138 Potassium 3.8 Chloride 110 H Carbon Dioxide 17.0 L Anion Gap 11 BUN 33 H Creatinine 1.96 H Estim Creat Clear Calc 21.59 Est GFR (MDRD) Af Amer 33 L Est GFR (MDRD) Non-Af 27 L BUN/Creatinine Ratio 16.8 Glucose 102 Calcium 9.2 Total Bilirubin 0.40 AST 26 ALT 36 Alkaline Phosphatase 80 Total Protein 7.0 Albumin 1.6 L Globulin 5.4 H Albumin/Globulin Ratio 0.3 L POC Glucose 101 12/17/19 07:15 WBC RBC Hgb Hct MCV MCH MCHC RDW Std Deviation RDW Coeff of Lanre Plt Count MPV Immature Gran % (Auto) Neut % (Auto) Lymph % (Auto) Park % (Auto) Eos % (Auto) Baso % (Auto) Absolute Neuts (auto) Absolute Lymphs (auto) Total Counted Neutrophils % (Manual) Band Neutrophils % Lymphocytes % (Manual) Monocytes % (Manual) Eosinophils % (Manual) Metamyelocytes % Nucleated RBC % Differential Comment Diff Path Review Platelet Estimate Polychromasia Hypochromasia Anisocytosis APTT 39.7 H Sodium Potassium Chloride Carbon Dioxide Anion Gap BUN Creatinine Estim Creat Clear Calc Est GFR (MDRD) Af Amer Est GFR (MDRD) Non-Af BUN/Creatinine Ratio Glucose Calcium Total Bilirubin AST ALT Alkaline Phosphatase Total Protein Albumin Globulin Albumin/Globulin Ratio POC Glucose Microbiology 12/11/19 07:12 Blood Culture (Wb) - Right Hand Blood Culture - Final No growth in 5 days. 12/10/19 23:45 Blood Culture (Wb) - Anticubital Right Bacteria Detection (PCR) - Final Coag Negative Staph 12/10/19 23:45 Blood Culture (Wb) - Anticubital Right Blood Culture - Final Coag Negative Staph Clinical Impression(s) from Imaging Studies Chest X-Ray 12/08/19 22:37 IMPRESSION: Stable right upper lobe lung nodule. Chronic changes in the lung bases. No evidence for acute cardiopulmonary pathology. Electronically Signed: Archie Bowers MD at 0:22 EDT , Service support , Chest X-Ray 12/09/19 05:06 IMPRESSION: Central line is in adequate position. Chronic changes in the lower lung manzano. No evidence for acute cardiopulmonary pathology. Electronically Signed: Archie Bowers MD at 7:03 EDT , Service support , Chest CT 12/09/19 09:24 IMPRESSION: 1. Dense right lower lobe pneumonia. Follow-up CT is recommended after resolution of symptoms to exclude mass, namely bronchogenic carcinoma 2. 4 mm noncalcified right upper lobe nodule and follow-up CT is recommended in 12 months document stability. Electronically Signed: Johnny Mo MD at 10:49 EDT Tel , Service support , Chest CT 12/13/19 09:39 IMPRESSION: Progressive infiltration in the right lower lobe as well as right pleural effusion. Minimal thickening of the left pleura with the mild left basilar atelectasis. Stable noncalcified bilateral pulmonary nodules. Electronically Signed: Lance Back, at 10:40 EDT , Service support , Current Medications Acetaminophen (Acetaminophen 325 Mg Tablet) 650 mg PO Q4H PRN PRN PRN Reason: TEMP > 100 Last Admin: 12/17/19 12:44 Dose: 650 mg Documented by: Al Hydroxide/Mg Hydroxide (Mag Hydrox/Al Hydrox/Simeth 30 Ml Udc) 30 ml PO Q6H PRN PRN PRN Reason: Gastric Burning Albuterol Sulfate (Albuterol 2.5 Mg/3 Ml Vial.Neb.) 2.5 mg INHALATION Q2H PRN PRN PRN Reason: sob/wheezing Albuterol/Ipratropium (Ipratropium/Albuterol Sulfate 3 Ml Ampul.Neb) 3 ml INHALATION Q4HWA.RT [facility] Last Admin: 12/17/19 15:14 Dose: 3 ml Documented by: Allopurinol (Allopurinol 100 Mg Tablet) 100 mg PO DAILY [facility] Last Admin: 12/17/19 09:17 Dose: 100 mg Documented by: Azelastine HCl (Azelastine Hcl Nasal.Sry) 2 spray NASAL BID [facility] Last Admin: 12/17/19 09:17 Dose: 2 spray Documented by: Bisacodyl (Bisacodyl 5 Mg Tablet) 10 mg PO DAILY PRN PRN PRN Reason: Constipation Last Admin: 12/15/19 23:35 Dose: 10 mg Documented by: Budesonide (Budesonide Respules 0.5 Mg/2 Ml Ampul.Neb.) 0.5 mg INHALATION Q12H.RT [facility] Last Admin: 12/17/19 06:50 Dose: 0.5 mg Documented by: Enoxaparin Sodium (Enoxaparin 120 Mg/0.8 Ml Syringe) 110 mg SC DAILY [facility] Last Admin: 12/17/19 09:17 Dose: 110 mg Documented by: Flecainide Acetate (Flecainide 100 Mg Tablet) 50 mg PO BID [facility] Last Admin: 12/17/19 09:18 Dose: 50 mg Documented by: Guaifenesin (Guaifenesin 1,200 Mg Tablet) 1,200 mg PO BID [facility] Last Admin: 12/17/19 09:20 Dose: 1,200 mg Documented by: Sodium Chloride () 250 mls @ 15 mls/hr IV .[id number] PRN PRN Reason: Saline Flush Last Infusion: 12/16/19 09:25 Dose: 15 mls/hr Documented by: Sodium Chloride () 250 mls @ 15 mls/hr IV .[id number] PRN PRN Reason: Additional IVPB Infusion Vancomycin IV Pharmacy to Dose (1 ea/ Sodium Chloride) 500 mls @ 250 mls/hr IV PRN PRN; Protocol PRN Reason: Rx to Dose Cefepime HCl 2 gm/ Sodium (Chloride) 100 mls @ 200 mls/hr IV Q12 [facility] Last Infusion: 12/17/19 09:50 Dose: Infused Documented by: Lactobacillus Acidophilus (Lactobacillus Acidophilus) 1 tablet PO TID [facility] Last Admin: 12/17/19 13:56 Dose: 1 tablet Documented by: Levothyroxine Sodium (Levothyroxine 25 Mcg Tablet) 25 mcg PO DAILY@0600 [facility] Last Admin: 12/17/19 06:36 Dose: 25 mcg Documented by: Lidocaine (Lidocaine 5% Patch) 2 patch TOPICAL DAILY [facility]; Protocol Last Admin: 12/17/19 09:17 Dose: 2 patch Documented by: Montelukast Sodium (Montelukast 10 Mg Tablet) 10 mg PO QHS [facility] Last Admin: 12/16/19 22:17 Dose: 10 mg Documented by: Ondansetron HCl (Ondansetron 4 Mg/2 Ml Vial) 4 mg IV Q8H PRN PRN PRN Reason: NAUSEA/VOMITING Oxycodone HCl (Oxycodone 5 Mg Tablet) 10 mg PO Q4H PRN PRN PRN Reason: Pain Score 4-10 Last Admin: 12/17/19 03:41 Dose: 10 mg Documented by: Pantoprazole Sodium (Pantoprazole Sodium 40 Mg Tablet) 40 mg PO BID [facility] Last Admin: 12/17/19 09:17 Dose: 40 mg Documented by: Polyethylene Glycol (Polyethylene Glycol 3350 17 Gm Packet) 17 gm PO DAILY [facility] Last Admin: 12/17/19 09:17 Dose: 17 gm Documented by: Prochlorperazine Edisylate (Prochlorperazine 10 Mg/2 Ml Vial) 10 mg IV Q6H PRN PRN PRN Reason: Nausea/Vomiting Last Admin: 12/11/19 00:21 Dose: 10 mg Documented by: Senna/Docusate Sodium (Senna/Docusate Sodium 1 Tablet) 2 tablet PO BID PRN PRN PRN Reason: Constipation Last Admin: 12/13/19 22:09 Dose: 1 tablet Documented by: Sodium Chloride (0.9% Saline Lock 10 Ml Syringe) 10 - 40 ml IV UD PRN PRN Reason: SALINE FLUSH Last Admin: 12/16/19 22:23 Dose: 10 ml Documented by: Medical Necessity - Tobacco Use Smoking Status: Former smoker Assessment/Plan All Active Problems (Last Reviewed 12/09/19 @ 04:[address] Lul Mazariegos MD) COPD with acute exacerbation (Acute) Septic shock (Acute) Septic shock (Acute) Shortness of breath (Acute) Asthma (Acute) ALEXYS (acute kidney injury) (Acute) RECOMMENDATIONS: 1. Continue Lovenox for now and resume Eliquis at discharge. 2. Continue antimicrobials per infectious diseases. 3. Continue aggressive bronchopulmonary hygiene. 4. Continue scheduled bronchodilator therapy and twice daily budesonide. 5. Monitor H&H daily and transfuse if hemoglobin drops below 7 g/dL. 6. BiPAP rescue as needed. IMPRESSIONS: 1. Septic shock secondary to right lower lobe pneumonia The patient does have underlying asthma, but carries a history of steroid induced myopathy. Therefore, she will be continued on bronchodilators and budesonide. The patient was recently treated at the beginning of November with antimicrobials for an underlying respiratory infection with sputum culture that was positive for both MRSA and Pseudomonas. Sputum is again growing similar pathogens. The patient will be continued on antimicrobials per infectious diseases recommendations. Continue aggressive bronchopulmonary hygiene. The patient remains hemodynamically stable. 2. Acute hypoxic respiratory failure secondary to #1 Patient likely has an element of obstructive sleep apnea and dense consolidation leading to decompensation. Fever curve is improving on current antibiotics. Continue with BiPAP rescue as necessary. Attempting to avoid systemic steroids secondary to a history of critical care neuropathy. 3. Anemia The patient does have a history of anemia and was anticoagulated on Eliquis due to a history of paroxysmal atrial fibrillation. The patient's Eliquis was transitioned to heparin, given anemia. Recommend continuing twice daily PPI therapy. Plan to monitor H&H daily and transfuse if hemoglobin drops below 7 g/dL. The patient can resume her Eliquis at discharge. 4. Acute kidney injury Improving. Likely prerenal in etiology. Continue to hold antihypertensives and diuretics. Continue to monitor urine output. No indication for renal replacement therapy. 5. History of moderate persistent asthma and steroid induced myopathy/history of organizing pneumonia Continue current supportive measures including scheduled bronchodilator therapy, twice daily budesonide and antimicrobials per infectious diseases recommendations. 6. History of lung nodules/GERD/paroxysmal atrial fibrillation/history of DVT/PE/anxiety/hypothyroidism/heart failure with preserved ejection fraction Complicates care, management, recovery and prognosis. Continue to hold home antihypertensives. This note was generated with [employer] dictation software. It may contain incorrect words, spelling, and punctuation that were not noted in checking the note before signing. Inpatient E&M: [id number] Subs Hosp L2
[2019-12-17] MEDS: 0.9% Saline Lock 10 ML Syringe IV (21:04)
[2019-12-17] MEDS: Montelukast 10 MG Tablet PO (21:07)
[2019-12-18] VITALS (15 sets, daily range): BP systolic 126–135; BP diastolic 61–78; PULSE 90–121; RESP 16–20; TEMP 36.9–38.2; O2SAT 86–100
[2019-12-18 02:49] LABS: Absolute Lymphocyte Count 1.22 X10^3/uL (0.83-4.51); Absolute Neutrophil Count 8.6 X10^3/uL (2.0-7.7); Basophil# 0.04 X10^3/uL; Basophil% 0.4 % (0-1); Eosinophil# 0.18 X10^3/uL; Eosinophils% 1.6 % (0-5); Hemoglobin 8.2 g/dL (12.0-15.0); Lymphocyte # 1.22 X10^3/ul (4.0); Lymphocyte % 10.7 % (19-41); Mean Corp Hgb Conc 28.3 g/dL (32-36); Mean Corpuscular Hgb 28.2 pg (27.0-32.0); Mean Corpuscular Volume 99.7 fL (81-99); NRBC Flagged by Analyzer 0 % (0-5); Neutrophil # 8.63 X10^3/uL (2.7-7.7); Neutrophil % 75.9 % (47-70); POSITIVE MORPHOLOGY YES; Platelet Count 413 K/mm3 (150-450); RBC Distribution Width CV 16.5 % (11.6-14.6); RBC Distribution Width SD 60.1 fl (35.1-43.9); Red Blood Count 2.91 M/mm3 (4.2-5.4); White Blood Count 11.4 K/mm3 (4.4-11.0)
[2019-12-18 03:00] LABS: Differential Indicated SCAN CRITERIA MET
[2019-12-18 03:06] LABS: Vancomycin, Trough Level 30.6 ug/mL (5.0-15.0)
--- NOTE | 2019-12-18 03:27 | NURSING ---
02 decreased to 1lnc
[2019-12-18 03:30] LABS: ALB/GLOB Ratio 0.3 RATIO (0.9-2.4); AST(SGOT) 25 U/L (15-37); Alanine Aminotransfer ALT/SGPT 35 U/L (13-56); Albumin, Serum 1.5 g/dL (3.2-5.0); Alkaline Phosphatase 77 U/L (45-117); Anion Gap 8 (5-15); BUN 36 mg/dL (7-18); BUN/Creat Ratio 18.3 RATIO (10-20); Calcium,Total 8.9 mg/dL (8.5-10.1); Chloride 115 mmol/L (98-107); Creatinine, Serum 1.97 mg/dL (0.55-1.02); EST Glomerular Filtration Rate 27 mL/min (>60); Est Glom Filt Rate - Afr Amer 33 mL/min (>60); Estimated Creatinine Clearance 21.48 ml/min; Globulin 5.4 g/dL (2.2-4.2); Glucose 96 mg/dL (74-106); Potassium 3.7 mmol/L (3.5-5.1); Protein, Total 6.9 g/dL (6.4-8.2); Sodium Level 139 mmol/L (136-145)
[2019-12-18 03:37] LABS: Differential Comment SCANNED
--- NOTE | 2019-12-18 03:58 | PCM.RX.CS ---
Consult Pharmacy has been consulted to manage selected antiobiotic: Vancomycin Type of Consult: Follow-up Suspected Infection: Sepsis Prior Doses of Antibiotics Received/Current Regimen: Medications Vancomycin HCl 1,250 mg/ (Sodium Chloride) 275 mls @ 167 mls/hr IV Q24H [facility] Last Admin: 12/17/19 05:52 Dose: Infused Labs: Sodium 139 mmol/L (136-145) 12/18/19 02:40 Potassium 3.7 mmol/L (3.5-5.1) 12/18/19 02:40 Chloride 115 mmol/L (98-107) H 12/18/19 02:40 Carbon Dioxide 16.0 mmol/L (21.0-32.0) L 12/18/19 02:40 Anion Gap 8 (5-15) 12/18/19 02:40 BUN 36 mg/dL (7-18) H 12/18/19 02:40 Creatinine 1.97 mg/dL (0.55-1.02) H 12/18/19 02:40 Est GFR (MDRD) Af Amer 33 mL/min (>60) L 12/18/19 02:40 Est GFR (MDRD) Non-Af 27 mL/min (>60) L 12/18/19 02:40 BUN/Creatinine Ratio 18.3 RATIO (-20) 12/18/19 02:40 Glucose 96 mg/dL (74-106) 12/18/19 02:40 Vancomycin Trough 30.6 ug/mL (5.0-15.0) H 12/18/19 02:40 Microbiology: Microbiology 12/11/19 07:12 Blood Culture (Wb) - Right Hand Blood Culture - Final No growth in 5 days. 12/10/19 23:45 Blood Culture (Wb) - Anticubital Right Bacteria Detection (PCR) - Final Coag Negative Staph 12/10/19 23:45 Blood Culture (Wb) - Anticubital Right Blood Culture - Final Coag Negative Staph 12/08/19 23:00 Blood Culture (Wb) - Arm Left Blood Culture - Final No growth in 5 days. 12/08/19 22:30 Blood Culture (Wb) - Anticubital Left Blood Culture - Final No growth in 5 days. 12/09/19 07:55 Sputum, Expectorated/Coughed Gram Stain - Final 12/09/19 07:55 Sputum, Expectorated/Coughed Respiratory Culture - Final Pseudomonas aeroginosa Meth. resistant Staph. aureus 12/09/19 00:30 Urine, Clean Catch Urine Culture - Final Mixed Gram Pos & Gram Neg Org 12/09/19 18:50 Urine, Clean Catch Legionella Antigen - Final 12/09/19 18:50 Urine, Clean Catch Streptococcus pneumoniae Antigen (M - Final 12/08/19 23:15 Mucosa - Nasopharyngeal Respiratory Panel (PCR) - Final Weight used for dosin.6 kg Estimated Creatinine Clearance: 21.5 Goal Trough: 15-20 mcg/mL Pharmacy Plan for Drug Dosing: Vancomycin level was high at 30.6. The next dose was held. Will re-draw a random level 12/18/19 @1530 and determine continuing dosage from that result. Pharmacy Service will continue to monitor and adjust dosing as required. Follow-Up Labs: Trough Vancomycin - random Labs to be done on [date and time ordered]: 12/18/19 @1530
[2019-12-18] MEDS: Levothyroxine 25 MCG TABLET PO (05:10)
--- NOTE | 2019-12-18 05:15 | NURSING ---
po 96% on 1lnc. pt put on rA. Will monitor
--- NOTE | 2019-12-18 05:55 | RAD_ITS ---
STUDY: X-RAY CHEST REASON FOR EXAM: Female, 64 years old. pneumonia TECHNIQUE: Single AP portable view of the chest. COMPARISON: December 08, 2019, CT chest December 13, 2019 FINDINGS: There is a right-sided central line the tip is in superior vena cava. Since prior study there is opacification of the right lower lobe and right middle lobe. There is linear density in the left lower lobe suggestive of atelectasis. There is mild cardiac enlargement. Normal mediastinum and tami. Normal visualized pulmonary arteries. There is atherosclerotic tortuosity of the aortic arch and descending thoracic aorta. There are diffuse degenerative changes of the visualized thoracic spine. There is been a right shoulder arthroplasty. There is no demonstrated abnormality of the visualized soft tissue structures of the upper abdomen. RAD/Chest 1 View (Portable) IMPRESSION: Interval large opacification of the right lower lobe which is suspicious for large right effusion with atelectasis. Left lower lobe atelectasis and/or effusion. Electronically Signed: Anita Thao MD at 6:35 EST Tel , Service support ,
[2019-12-18] MEDS: Budesonide Respules 0.5 MG/2 ML AMPUL.NEB. INHALATION ×2 (06:52→19:30)
[2019-12-18] MEDS: Ipratropium/Albuterol Sulfate 3 ML AMPUL.NEB INHALATION ×4 (06:52→19:30)
[2019-12-18 08:50] LABS: BNP,B-Type NATRIURETIC PEPTIDE 40.5 pg/mL (0-100)
[2019-12-18] MEDS: Flecainide 100 MG Tablet 50 MG PO ×2 (09:20→21:26)
[2019-12-18] MEDS: Pantoprazole Sodium 40 MG Tablet PO ×2 (09:21→21:26)
[2019-12-18] MEDS: guaiFENesin 1,200 MG Tablet 1200 MG PO ×2 (09:21→21:26)
[2019-12-18] MEDS: Allopurinol 100 MG Tablet PO (09:21)
[2019-12-18] MEDS: Polyethylene Glycol 3350 17 GM PACKET PO (09:22)
[2019-12-18] MEDS: Lidocaine 5% Patch 2 PATCH TOPICAL (09:22)
[2019-12-18] MEDS: Enoxaparin 120 MG/0.8 ML Syringe 110 MG SC (09:23)
[2019-12-18] MEDS: Furosemide 40 MG/4 ML Vial IV ×2 (09:45→17:53)
[2019-12-18] MEDS: 0.9% Saline Lock 10 ML Syringe IV ×4 (09:45→21:25)
[2019-12-18] MEDS: Acetaminophen 325 MG Tablet 650 MG PO (09:45)
--- NOTE | 2019-12-18 11:11 | PN.ID_ITS ---
Patient Problems: Active and Suspected Problems (Last Reviewed 12/09/19 @ 04:[address] Lul Mazariegos MD) COPD with acute exacerbation (Acute) Septic shock (Acute) Septic shock (Acute) Shortness of breath (Acute) Asthma (Acute) ALEXYS (acute kidney injury) (Acute) Subjective: Feeling a little better, still some dyspnea, more swollen, intermittent fever - Physical Exam Vitals/I&O's: Vital Signs Temp Pulse Resp BP Pulse Ox 100.7 F H 103 H 20 H 135/64 H 93 12/18/19 09:18 12/18/19 09:18 12/18/19 09:18 12/18/19 09:18 12/18/19 11:03 Oxygen Flow Rate (L/min) [ 2 AMBULATION with Oxygen] Oxygen Flow Rate (L/min) 1 Oxygen Delivery Method Room Air Weight: 111.6 kg Body Mass Index (BMI) 45.8 Intake and Output for Last 24 Hours 12/16/19 12/17/19 12/18/19 23:59 23:59 23:59 Intake Total 2395 / 2395 408.25 / 408.25 Balance 2395 / 2395 408.25 / 408.25 General: Alert, Cooperative, No apparent distress Lungs: Diminished Cardiovascular: Regular rate, Regular Rhythm Abdomen: Soft, Non Tender, Non-Distended Skin: No rashes Microbiology Past 72 Hours 12/11/19 07:12 Blood Culture (Wb) - Right Hand Blood Culture - Final No growth in 5 days. 12/10/19 23:45 Blood Culture (Wb) - Anticubital Right Bacteria Detection (PCR) - Final Coag Negative Staph 12/10/19 23:45 Blood Culture (Wb) - Anticubital Right Blood Culture - Final Coag Negative Staph Laboratory Results 12/16/19 04:55: Diff Path Review Reviewed 12/18/19 02:40: Vancomycin Trough 30.6 H 12/18/19 02:40: WBC 11.4 H, RBC 2.91 L, Hgb 8.2 L, Hct 29.0 L, MCV 99.7 H D, MCH 28.2, MCHC 28.3 L D, RDW Std Deviation 60.1 H, RDW Coeff of Lanre 16.5 H, Plt Count 413, MPV 10.0, Immature Gran % (Auto) 4.400 H, Neut % (Auto) 75.9 H, Lymph % (Auto) 10.7 L, [place] % (Auto) 7.0, Eos % (Auto) 1.6, Baso % (Auto) 0.4, Absolute Neuts (auto) 8.6 H, Absolute Lymphs (auto) 1.22, Nucleated RBC % 0, Differential Comment SCANNED 12/18/19 02:40: Sodium 139, Potassium 3.7, Chloride 115 H, Carbon Dioxide 16.0 L , Anion Gap 8, BUN 36 H, Creatinine 1.97 H, Estim Creat Clear Calc 21.48, Est GFR (MDRD) Af Amer 33 L, Est GFR (MDRD) Non-Af 27 L, BUN/Creatinine Ratio 18.3, Glucose 96, Calcium 8.9, Total Bilirubin 0.30, AST 25, ALT 35, Alkaline Phosphatase 77, Total Protein 6.9, Albumin 1.5 L, Globulin 5.4 H, Albumin/Globulin Ratio 0.3 L 12/18/19 02:40: B-Natriuretic Peptide 40.5 Current Medications Acetaminophen (Acetaminophen 325 Mg Tablet) 650 mg PO Q4H PRN PRN PRN Reason: TEMP > 100 Last Admin: 12/18/19 09:45 Dose: 650 mg Documented by: Al Hydroxide/Mg Hydroxide (Mag Hydrox/Al Hydrox/Simeth 30 Ml Udc) 30 ml PO Q6H PRN PRN PRN Reason: Gastric Burning Albuterol Sulfate (Albuterol 2.5 Mg/3 Ml Vial.Neb.) 2.5 mg INHALATION Q2H PRN PRN PRN Reason: sob/wheezing Albuterol/Ipratropium (Ipratropium/Albuterol Sulfate 3 Ml Ampul.Neb) 3 ml INHALATION Q4HWA.RT [facility] Last Admin: 12/18/19 06:52 Dose: 3 ml Documented by: Allopurinol (Allopurinol 100 Mg Tablet) 100 mg PO DAILY [facility] Last Admin: 12/18/19 09:21 Dose: 100 mg Documented by: Azelastine HCl (Azelastine Hcl Nasal.Sry) 2 spray NASAL BID [facility] Last Admin: 12/18/19 09:34 Dose: Not Given Documented by: Bisacodyl (Bisacodyl 5 Mg Tablet) 10 mg PO DAILY PRN PRN PRN Reason: Constipation Last Admin: 12/15/19 23:35 Dose: 10 mg Documented by: Budesonide (Budesonide Respules 0.5 Mg/2 Ml Ampul.Neb.) 0.5 mg INHALATION Q12H.RT [facility] Last Admin: 12/18/19 06:52 Dose: 0.5 mg Documented by: Flecainide Acetate (Flecainide 100 Mg Tablet) 50 mg PO BID [facility] Last Admin: 12/18/19 09:20 Dose: 50 mg Documented by: Furosemide (Furosemide 20 Mg Tablet) 20 mg PO DAILY [facility] Furosemide (Furosemide 40 Mg Tablet) 40 mg PO BREAKFAST [facility] Guaifenesin (Guaifenesin 1,200 Mg Tablet) 1,200 mg PO BID [facility] Last Admin: 12/18/19 09:21 Dose: 1,200 mg Documented by: Sodium Chloride () 250 mls @ 15 mls/hr IV .[id number] PRN PRN Reason: Saline Flush Last Infusion: 12/18/19 09:00 Dose: Infused Documented by: Sodium Chloride () 250 mls @ 15 mls/hr IV .[id number] PRN PRN Reason: Additional IVPB Infusion Vancomycin IV Pharmacy to Dose (1 ea/ Sodium Chloride) 500 mls @ 250 mls/hr IV PRN PRN; Protocol PRN Reason: Rx to Dose Cefepime HCl 2 gm/ Sodium (Chloride) 100 mls @ 200 mls/hr IV Q12 [facility] Last Infusion: 12/18/19 10:05 Dose: Infused Documented by: Lactobacillus Acidophilus (Lactobacillus Acidophilus) 1 tablet PO TID [facility] Last Admin: 12/18/19 05:10 Dose: 1 tablet Documented by: Levothyroxine Sodium (Levothyroxine 25 Mcg Tablet) 25 mcg PO DAILY@0600 [facility] Last Admin: 12/18/19 05:10 Dose: 25 mcg Documented by: Lidocaine (Lidocaine 5% Patch) 2 patch TOPICAL DAILY [facility]; Protocol Last Admin: 12/18/19 09:22 Dose: 2 patch Documented by: Montelukast Sodium (Montelukast 10 Mg Tablet) 10 mg PO QHS [facility] Last Admin: 12/17/19 21:07 Dose: 10 mg Documented by: Ondansetron HCl (Ondansetron 4 Mg/2 Ml Vial) 4 mg IV Q8H PRN PRN PRN Reason: NAUSEA/VOMITING Oxycodone HCl (Oxycodone 5 Mg Tablet) 10 mg PO Q4H PRN PRN PRN Reason: Pain Score 4-10 Last Admin: 12/17/19 21:21 Dose: 10 mg Documented by: Pantoprazole Sodium (Pantoprazole Sodium 40 Mg Tablet) 40 mg PO BID [facility] Last Admin: 12/18/19 09:21 Dose: 40 mg Documented by: Polyethylene Glycol (Polyethylene Glycol 3350 17 Gm Packet) 17 gm PO DAILY [facility] Last Admin: 12/18/19 09:22 Dose: 17 gm Documented by: Prochlorperazine Edisylate (Prochlorperazine 10 Mg/2 Ml Vial) 10 mg IV Q6H PRN PRN PRN Reason: Nausea/Vomiting Last Admin: 12/11/19 00:21 Dose: 10 mg Documented by: Senna/Docusate Sodium (Senna/Docusate Sodium 1 Tablet) 2 tablet PO BID PRN PRN PRN Reason: Constipation Last Admin: 12/13/19 22:09 Dose: 1 tablet Documented by: Sodium Chloride (0.9% Saline Lock 10 Ml Syringe) 10 - 40 ml IV UD PRN PRN Reason: SALINE FLUSH Last Admin: 12/18/19 09:45 Dose: 10 ml Documented by: Medical Necessity - Tobacco Use Smoking Status: Former smoker Route of nutrition/ use of supplements: [] Nutritional Intake: [] IV Site: [] Liz Catheter: [] - Assessment/Plan Antibiotics: [] Assessment/Plan: [] Active and Suspected Problems (Last Reviewed 12/09/19 @ 04:[address] Lul Mazariegos MD) COPD with acute exacerbation (Acute) Septic shock (Acute) Septic shock (Acute) Shortness of breath (Acute) Asthma (Acute) ALEXYS (acute kidney injury) (Acute) Sputum again with staph and pseudomonas. Cont vanc and cefepime. Overall much improved and out of icu. Still high fever intermittently. ALEXYS improved. Covid neg. CXR now with worsening effusion. Recommend thoracentesis if possible. Remove RIJ cvc and place peripheral access. Will follow, d/w primary team.
--- NOTE | 2019-12-18 13:30 | PN_ITS ---
Patient Problems: Active and Suspected Problems (Last Reviewed 12/09/19 @ 04:[address] Lul Mazariegos MD) COPD with acute exacerbation (Acute) Septic shock (Acute) Septic shock (Acute) Shortness of breath (Acute) Asthma (Acute) ALEXYS (acute kidney injury) (Acute) Subjective: The patient was seen and examined at the bedside this morning. Events from the last 24 hours have been reviewed. The patient is currently afebrile, hemodynamically stable and maintaining appropriate oxygen saturations on 1 L/min via nasal cannula. The patient does report feeling rundown and fatigued. She has a great deal of lower extremity swelling. The patient is currently documented to be overall net +19 L for the hospital admission. Objective: The patient's most recent lab work, culture data and imaging studies have all been personally reviewed. Sputum culture dated December 08 was positive for Pseudomonas aeruginosa and MRSA. - Physical Exam Vitals/I&O's: Vital Signs Temp Pulse Resp BP Pulse Ox 100.7 F H 98 20 H 135/64 H 93 12/18/19 09:18 12/18/19 11:55 12/18/19 09:18 12/18/19 09:18 12/18/19 11:03 Oxygen Flow Rate (L/min) [ 2 AMBULATION with Oxygen] Oxygen Flow Rate (L/min) 1 Oxygen Delivery Method Room Air Weight: 246 lb 0.574 oz Body Mass Index (BMI) 45.8 Intake and Output for Last 24 Hours 12/16/19 12/17/19 12/18/19 23:59 23:59 23:59 Intake Total 2395 / 2395 648.25 / 648.25 Balance 2395 / 2395 648.25 / 648.25 General: Alert, Cooperative, No apparent distress HEENT: Atraumatic, Normocephalic Oral: Moist Mucosa, No Gingival or Mucosal Lesions/ Ulcerations Neck: Supple, No Nodes, Trachea Midline Lungs: Diminished Cardiovascular: Regular rate, Regular Rhythm Abdomen: Bowel Sounds Present, Soft, Non Tender, Obese Extremities: No clubbing, No cyanosis, Edema Skin: No breakdown Musculoskeletal: No Muscle Wasting Lymphatic: No Cervical, Supraclavicular, or Inguinal Adenopathy Neurological: Neuro grossly intact Psych/Mental Status: Flat Affect Labs (Last 48 Hours) 12/16/19 12/16/1920 04:55 16:59 22:22 WBC RBC Hgb Hct MCV MCH MCHC RDW Std Deviation RDW Coeff of Lanre Plt Count MPV Immature Gran % (Auto) Neut % (Auto) Lymph % (Auto) [place] % (Auto) Eos % (Auto) Baso % (Auto) Absolute Neuts (auto) Absolute Lymphs (auto) Nucleated RBC % Differential Comment Diff Path Review Reviewed Hypochromasia APTT Sodium Potassium Chloride Carbon Dioxide Anion Gap BUN Creatinine Estim Creat Clear Calc Est GFR (MDRD) Af Amer Est GFR (MDRD) Non-Af BUN/Creatinine Ratio Glucose Calcium Total Bilirubin AST ALT Alkaline Phosphatase B-Natriuretic Peptide Total Protein Albumin Globulin Albumin/Globulin Ratio Vancomycin Trough POC Glucose 89 129 H 12/17/19 12/17/19 12/17/19 06:34 07:15 07:15 WBC 10.6 RBC 2.97 L Hgb 8.5 L Hct 28.1 L MCV 94.6 MCH 28.6 MCHC 30.2 L RDW Std Deviation 55.8 H RDW Coeff of Lanre 16.2 H Plt Count 394 MPV 10.3 Immature Gran % (Auto) 4.600 H Neut % (Auto) 69.5 Lymph % (Auto) 15.3 L [place] % (Auto) 8.4 Eos % (Auto) 1.7 Baso % (Auto) 0.5 Absolute Neuts (auto) 7.3 Absolute Lymphs (auto) 1.62 Nucleated RBC % 0 Differential Comment SCANNED Diff Path Review Hypochromasia 3+ APTT Sodium 138 Potassium 3.8 Chloride 110 H Carbon Dioxide 17.0 L Anion Gap 11 BUN 33 H Creatinine 1.96 H Estim Creat Clear Calc 21.59 Est GFR (MDRD) Af Amer 33 L Est GFR (MDRD) Non-Af 27 L BUN/Creatinine Ratio 16.8 Glucose 102 Calcium 9.2 Total Bilirubin 0.40 AST 26 ALT 36 Alkaline Phosphatase 80 B-Natriuretic Peptide Total Protein 7.0 Albumin 1.6 L Globulin 5.4 H Albumin/Globulin Ratio 0.3 L Vancomycin Trough POC Glucose 101 12/17/19 12/18/19 12/18/19 07:15 02:40 02:40 WBC 11.4 H RBC 2.91 L Hgb 8.2 L Hct 29.0 L MCV 99.7 H D MCH 28.2 MCHC 28.3 L D RDW Std Deviation 60.1 H RDW Coeff of Lanre 16.5 H Plt Count 413 MPV 10.0 Immature Gran % (Auto) 4.400 H Neut % (Auto) 75.9 H Lymph % (Auto) 10.7 L [place] % (Auto) 7.0 Eos % (Auto) 1.6 Baso % (Auto) 0.4 Absolute Neuts (auto) 8.6 H Absolute Lymphs (auto) 1.22 Nucleated RBC % 0 Differential Comment SCANNED Diff Path Review Hypochromasia APTT 39.7 H Sodium Potassium Chloride Carbon Dioxide Anion Gap BUN Creatinine Estim Creat Clear Calc Est GFR (MDRD) Af Amer Est GFR (MDRD) Non-Af BUN/Creatinine Ratio Glucose Calcium Total Bilirubin AST ALT Alkaline Phosphatase B-Natriuretic Peptide Total Protein Albumin Globulin Albumin/Globulin Ratio Vancomycin Trough 30.6 H POC Glucose 12/18/19 12/18/19 02:40 02:40 WBC RBC Hgb Hct MCV MCH MCHC RDW Std Deviation RDW Coeff of Lanre Plt Count MPV Immature Gran % (Auto) Neut % (Auto) Lymph % (Auto) [place] % (Auto) Eos % (Auto) Baso % (Auto) Absolute Neuts (auto) Absolute Lymphs (auto) Nucleated RBC % Differential Comment Diff Path Review Hypochromasia APTT Sodium 139 Potassium 3.7 Chloride 115 H Carbon Dioxide 16.0 L Anion Gap 8 BUN 36 H Creatinine 1.97 H Estim Creat Clear Calc 21.48 Est GFR (MDRD) Af Amer 33 L Est GFR (MDRD) Non-Af 27 L BUN/Creatinine Ratio 18.3 Glucose 96 Calcium 8.9 Total Bilirubin 0.30 AST 25 ALT 35 Alkaline Phosphatase 77 B-Natriuretic Peptide 40.5 Total Protein 6.9 Albumin 1.5 L Globulin 5.4 H Albumin/Globulin Ratio 0.3 L Vancomycin Trough POC Glucose Clinical Impression(s) from Imaging Studies Chest X-Ray 12/08/19 22:37 IMPRESSION: Stable right upper lobe lung nodule. Chronic changes in the lung bases. No evidence for acute cardiopulmonary pathology. Electronically Signed: Archie Bowers MD at 0:22 EDT , Service support , Chest X-Ray 12/09/19 05:06 IMPRESSION: Central line is in adequate position. Chronic changes in the lower lung manzano. No evidence for acute cardiopulmonary pathology. Electronically Signed: Archie Bowers MD at 7:03 EDT , Service support , Chest CT 12/09/19 09:24 IMPRESSION: 1. Dense right lower lobe pneumonia. Follow-up CT is recommended after resolution of symptoms to exclude mass, namely bronchogenic carcinoma 2. 4 mm noncalcified right upper lobe nodule and follow-up CT is recommended in 12 months document stability. Electronically Signed: Johnny Mo MD at 10:49 EDT Tel , Service support , Chest CT 12/13/19 09:39 IMPRESSION: Progressive infiltration in the right lower lobe as well as right pleural effusion. Minimal thickening of the left pleura with the mild left basilar atelectasis. Stable noncalcified bilateral pulmonary nodules. Electronically Signed: Lance Back, at 10:40 EDT , Service support , Chest X-Ray 12/18/19 05:55 IMPRESSION: Interval large opacification of the right lower lobe which is suspicious for large right effusion with atelectasis. Left lower lobe atelectasis and/or effusion. Electronically Signed: Anita Thao MD at 6:35 EST Tel , Service support , Current Medications Acetaminophen (Acetaminophen 325 Mg Tablet) 650 mg PO Q4H PRN PRN PRN Reason: TEMP > 100 Last Admin: 12/18/19 09:45 Dose: 650 mg Documented by: Al Hydroxide/Mg Hydroxide (Mag Hydrox/Al Hydrox/Simeth 30 Ml Udc) 30 ml PO Q6H PRN PRN PRN Reason: Gastric Burning Albuterol Sulfate (Albuterol 2.5 Mg/3 Ml Vial.Neb.) 2.5 mg INHALATION Q2H PRN PRN PRN Reason: sob/wheezing Albuterol/Ipratropium (Ipratropium/Albuterol Sulfate 3 Ml Ampul.Neb) 3 ml INHALATION Q4HWA.RT [facility] Last Admin: 12/18/19 11:26 Dose: 3 ml Documented by: Allopurinol (Allopurinol 100 Mg Tablet) 100 mg PO DAILY [facility] Last Admin: 12/18/19 09:21 Dose: 100 mg Documented by: Azelastine HCl (Azelastine Hcl Nasal.Sry) 2 spray NASAL BID [facility] Last Admin: 12/18/19 09:34 Dose: Not Given Documented by: Bisacodyl (Bisacodyl 5 Mg Tablet) 10 mg PO DAILY PRN PRN PRN Reason: Constipation Last Admin: 12/15/19 23:35 Dose: 10 mg Documented by: Budesonide (Budesonide Respules 0.5 Mg/2 Ml Ampul.Neb.) 0.5 mg INHALATION Q12H.RT [facility] Last Admin: 12/18/19 06:52 Dose: 0.5 mg Documented by: Flecainide Acetate (Flecainide 100 Mg Tablet) 50 mg PO BID [facility] Last Admin: 12/18/19 09:20 Dose: 50 mg Documented by: Furosemide (Furosemide 40 Mg/4 Ml Vial) 40 mg IV BID@1000,1800 [facility] Guaifenesin (Guaifenesin 1,200 Mg Tablet) 1,200 mg PO BID [facility] Last Admin: 12/18/19 09:21 Dose: 1,200 mg Documented by: Sodium Chloride () 250 mls @ 15 mls/hr IV .[id number] PRN PRN Reason: Saline Flush Last Infusion: 12/18/19 09:00 Dose: Infused Documented by: Sodium Chloride () 250 mls @ 15 mls/hr IV .[id number] PRN PRN Reason: Additional IVPB Infusion Vancomycin IV Pharmacy to Dose (1 ea/ Sodium Chloride) 500 mls @ 250 mls/hr IV PRN PRN; Protocol PRN Reason: Rx to Dose Cefepime HCl 2 gm/ Sodium (Chloride) 100 mls @ 200 mls/hr IV Q12 [facility] Last Infusion: 12/18/19 10:05 Dose: Infused Documented by: Lactobacillus Acidophilus (Lactobacillus Acidophilus) 1 tablet PO TID [facility] Last Admin: 12/18/19 05:10 Dose: 1 tablet Documented by: Levothyroxine Sodium (Levothyroxine 25 Mcg Tablet) 25 mcg PO DAILY@0600 [facility] Last Admin: 12/18/19 05:10 Dose: 25 mcg Documented by: Lidocaine (Lidocaine 5% Patch) 2 patch TOPICAL DAILY [facility]; Protocol Last Admin: 12/18/19 09:22 Dose: 2 patch Documented by: Montelukast Sodium (Montelukast 10 Mg Tablet) 10 mg PO QHS [facility] Last Admin: 12/17/19 21:07 Dose: 10 mg Documented by: Ondansetron HCl (Ondansetron 4 Mg/2 Ml Vial) 4 mg IV Q8H PRN PRN PRN Reason: NAUSEA/VOMITING Oxycodone HCl (Oxycodone 5 Mg Tablet) 10 mg PO Q4H PRN PRN PRN Reason: Pain Score 4-10 Last Admin: 12/17/19 21:21 Dose: 10 mg Documented by: Pantoprazole Sodium (Pantoprazole Sodium 40 Mg Tablet) 40 mg PO BID [facility] Last Admin: 12/18/19 09:21 Dose: 40 mg Documented by: Polyethylene Glycol (Polyethylene Glycol 3350 17 Gm Packet) 17 gm PO DAILY [facility] Last Admin: 12/18/19 09:22 Dose: 17 gm Documented by: Prochlorperazine Edisylate (Prochlorperazine 10 Mg/2 Ml Vial) 10 mg IV Q6H PRN PRN PRN Reason: Nausea/Vomiting Last Admin: 12/11/19 00:21 Dose: 10 mg Documented by: Senna/Docusate Sodium (Senna/Docusate Sodium 1 Tablet) 2 tablet PO BID PRN PRN PRN Reason: Constipation Last Admin: 12/13/19 22:09 Dose: 1 tablet Documented by: Sodium Chloride (0.9% Saline Lock 10 Ml Syringe) 10 - 40 ml IV UD PRN PRN Reason: SALINE FLUSH Last Admin: 12/18/19 09:45 Dose: 10 ml Documented by: Medical Necessity - Tobacco Use Smoking Status: Former smoker Assessment/Plan All Active Problems (Last Reviewed 12/09/19 @ 04:[address] Lul Mazariegos MD) COPD with acute exacerbation (Acute) Septic shock (Acute) Septic shock (Acute) Shortness of breath (Acute) Asthma (Acute) ALEXYS (acute kidney injury) (Acute) RECOMMENDATIONS: 1. Recommend holding Lovenox if considering thoracentesis. 2. Continue antimicrobials per infectious diseases. 3. Continue aggressive bronchopulmonary hygiene. 4. Continue scheduled bronchodilator therapy and twice daily budesonide. 5. Monitor H&H daily and transfuse if hemoglobin drops below 7 g/dL. 6. BiPAP rescue as needed. 7. Increase Lasix regimen as the patient is significantly volume up for the hospitalization. IMPRESSIONS: 1. Septic shock secondary to right lower lobe pneumonia The patient does have underlying asthma, but carries a history of steroid induced myopathy. Therefore, she will be continued on bronchodilators and budesonide. The patient was recently treated at the beginning of November with antimicrobials for an underlying respiratory infection with sputum culture that was positive for both MRSA and Pseudomonas. Sputum is again growing similar pathogens. The patient will be continued on antimicrobials per infectious diseases recommendations. Continue aggressive bronchopulmonary hygiene. The patient remains hemodynamically stable. 2. Acute hypoxic respiratory failure secondary to #1 Patient likely has an element of obstructive sleep apnea and dense consolidation leading to decompensation. Fever curve is improving on current antibiotics. Continue with BiPAP rescue as necessary. Attempting to avoid systemic steroids secondary to a history of critical care neuropathy. The patient does have a sizable pleural effusion on chest x-ray which could be related to hypervolemia as the patient is over 19 L positive for the hospitalization. Accordingly, I would recommend aggressive diuresis. If considering thoracentesis, Lovenox would need to be held. 3. Anemia The patient does have a history of anemia and was anticoagulated on Eliquis due to a history of paroxysmal atrial fibrillation. The patient's Eliquis was transitioned to Lovenox, given anemia. Recommend continuing twice daily PPI therapy. Plan to monitor H&H daily and transfuse if hemoglobin drops below 7 g/dL. The patient can resume her Eliquis at discharge. 4. Acute kidney injury Improving. Likely prerenal in etiology. Continue to monitor urine output. No indication for renal replacement therapy. 5. History of moderate persistent asthma and steroid induced myopathy/history of organizing pneumonia Continue current supportive measures including scheduled bronchodilator therapy, twice daily budesonide and antimicrobials per infectious diseases recommendations. 6. History of lung nodules/GERD/paroxysmal atrial fibrillation/history of DVT/PE/anxiety/hypothyroidism/heart failure with preserved ejection fraction Complicates care, management, recovery and prognosis. Continue home medications as indicated. This note was generated with Memopalation software. It may contain incorrect words, spelling, and punctuation that were not noted in checking the note before signing. Inpatient E&M: 69523 Subs Hosp L2
--- NOTE | 2019-12-18 14:29 | PN_ITS ---
Patient Problems: Active and Suspected Problems (Last Reviewed 12/09/19 @ 04:[address] Lul Mazariegos MD) COPD with acute exacerbation (Acute) Septic shock (Acute) Septic shock (Acute) Shortness of breath (Acute) Asthma (Acute) ALEXYS (acute kidney injury) (Acute) Reason for Visit: SOB Subjective: SOB at rest improved. Still very dyspneic and hypoxic with exertion. ongoing BL chest pain in the lower [place]. Intermittent fever. No chills. Productive cough. Vitals/I&O's: Vital Signs Temp Pulse Resp BP Pulse Ox 100.7 F H 98 20 H 135/64 H 93 12/18/19 09:18 12/18/19 11:55 12/18/19 09:18 12/18/19 09:18 12/18/19 11:03 Oxygen Flow Rate (L/min) [ 2 AMBULATION with Oxygen] Oxygen Flow Rate (L/min) 1 Oxygen Delivery Method Room Air Weight: 246 lb 0.574 oz Body Mass Index (BMI) 45.8 Intake and Output for Last 24 Hours 12/16/19 12/17/19 12/18/19 23:59 23:59 23:59 Intake Total 2395 / 2395 648.25 / 648.25 Balance 2395 / 2395 648.25 / 648.25 General: Alert, Oriented x3, Cooperative HEENT: Atraumatic, PERRLA, EOMI, Normocephalic Neck: Supple, No JVD, Negative Carotid Bruits Lungs: Clear to auscultation, Diminished Cardiovascular: Regular rate, No murmurs Abdomen: Bowel Sounds Present, Soft, Non Tender Extremities: Capillary Refill Less than 3 Seconds, Edema - 2+ pitting edema BLE Skin: No rashes, No breakdown Musculoskeletal: No Tenderness to Palpation of Joints or Extremities Neurological: Cranial nerves II-XII grossly intact Psych/Mental Status: Normal Affect, Appropriate, Alert and oriented to time, place, person, mood and affect Microbiology Past 72 Hours 12/11/19 07:12 Blood Culture (Wb) - Right Hand Blood Culture - Final No growth in 5 days. 12/10/19 23:45 Blood Culture (Wb) - Anticubital Right Bacteria Detection (PCR) - Final Coag Negative Staph 12/10/19 23:45 Blood Culture (Wb) - Anticubital Right Blood Culture - Final Coag Negative Staph Laboratory Results 12/18/19 02:40: Vancomycin Trough 30.6 H 12/18/19 02:40: WBC 11.4 H, RBC 2.91 L, Hgb 8.2 L, Hct 29.0 L, MCV 99.7 H D, MCH 28.2, MCHC 28.3 L D, RDW Std Deviation 60.1 H, RDW Coeff of Lanre 16.5 H, Plt Count 413, MPV 10.0, Immature Gran % (Auto) 4.400 H, Neut % (Auto) 75.9 H, Lymph % (Auto) 10.7 L, [place] % (Auto) 7.0, Eos % (Auto) 1.6, Baso % (Auto) 0.4, Absolute Neuts (auto) 8.6 H, Absolute Lymphs (auto) 1.22, Nucleated RBC % 0, Differential Comment SCANNED 12/18/19 02:40: Sodium 139, Potassium 3.7, Chloride 115 H, Carbon Dioxide 16.0 L , Anion Gap 8, BUN 36 H, Creatinine 1.97 H, Estim Creat Clear Calc 21.48, Est GFR (MDRD) Af Amer 33 L, Est GFR (MDRD) Non-Af 27 L, BUN/Creatinine Ratio 18.3, Glucose 96, Calcium 8.9, Total Bilirubin 0.30, AST 25, ALT 35, Alkaline Phosphatase 77, Total Protein 6.9, Albumin 1.5 L, Globulin 5.4 H, Albumin/Globulin Ratio 0.3 L 12/18/19 02:40: B-Natriuretic Peptide 40.5 Current Medications Acetaminophen (Acetaminophen 325 Mg Tablet) 650 mg PO Q4H PRN PRN PRN Reason: TEMP > 100 Last Admin: 12/18/19 09:45 Dose: 650 mg Documented by: Al Hydroxide/Mg Hydroxide (Mag Hydrox/Al Hydrox/Simeth 30 Ml Udc) 30 ml PO Q6H PRN PRN PRN Reason: Gastric Burning Albuterol Sulfate (Albuterol 2.5 Mg/3 Ml Vial.Neb.) 2.5 mg INHALATION Q2H PRN PRN PRN Reason: sob/wheezing Albuterol/Ipratropium (Ipratropium/Albuterol Sulfate 3 Ml Ampul.Neb) 3 ml INHALATION Q4HWA.RT [facility] Last Admin: 12/18/19 11:26 Dose: 3 ml Documented by: Allopurinol (Allopurinol 100 Mg Tablet) 100 mg PO DAILY [facility] Last Admin: 12/18/19 09:21 Dose: 100 mg Documented by: Azelastine HCl (Azelastine Hcl Nasal.Sry) 2 spray NASAL BID [facility] Last Admin: 12/18/19 09:34 Dose: Not Given Documented by: Bisacodyl (Bisacodyl 5 Mg Tablet) 10 mg PO DAILY PRN PRN PRN Reason: Constipation Last Admin: 12/15/19 23:35 Dose: 10 mg Documented by: Budesonide (Budesonide Respules 0.5 Mg/2 Ml Ampul.Neb.) 0.5 mg INHALATION Q12H.RT [facility] Last Admin: 12/18/19 06:52 Dose: 0.5 mg Documented by: Flecainide Acetate (Flecainide 100 Mg Tablet) 50 mg PO BID [facility] Last Admin: 12/18/19 09:20 Dose: 50 mg Documented by: Furosemide (Furosemide 40 Mg/4 Ml Vial) 40 mg IV BID@1000,1800 [facility] Guaifenesin (Guaifenesin 1,200 Mg Tablet) 1,200 mg PO BID [facility] Last Admin: 12/18/19 09:21 Dose: 1,200 mg Documented by: Sodium Chloride () 250 mls @ 15 mls/hr IV .[id number] PRN PRN Reason: Saline Flush Last Infusion: 12/18/19 09:00 Dose: Infused Documented by: Sodium Chloride () 250 mls @ 15 mls/hr IV .[id number] PRN PRN Reason: Additional IVPB Infusion Vancomycin IV Pharmacy to Dose (1 ea/ Sodium Chloride) 500 mls @ 250 mls/hr IV PRN PRN; Protocol PRN Reason: Rx to Dose Cefepime HCl 2 gm/ Sodium (Chloride) 100 mls @ 200 mls/hr IV Q12 [facility] Last Infusion: 12/18/19 10:05 Dose: Infused Documented by: Lactobacillus Acidophilus (Lactobacillus Acidophilus) 1 tablet PO TID [facility] Last Admin: 12/18/19 05:10 Dose: 1 tablet Documented by: Levothyroxine Sodium (Levothyroxine 25 Mcg Tablet) 25 mcg PO DAILY@0600 [facility] Last Admin: 12/18/19 05:10 Dose: 25 mcg Documented by: Lidocaine (Lidocaine 5% Patch) 2 patch TOPICAL DAILY [facility]; Protocol Last Admin: 12/18/19 09:22 Dose: 2 patch Documented by: Montelukast Sodium (Montelukast 10 Mg Tablet) 10 mg PO QHS [facility] Last Admin: 12/17/19 21:07 Dose: 10 mg Documented by: Ondansetron HCl (Ondansetron 4 Mg/2 Ml Vial) 4 mg IV Q8H PRN PRN PRN Reason: NAUSEA/VOMITING Oxycodone HCl (Oxycodone 5 Mg Tablet) 10 mg PO Q4H PRN PRN PRN Reason: Pain Score 4-10 Last Admin: 12/17/19 21:21 Dose: 10 mg Documented by: Pantoprazole Sodium (Pantoprazole Sodium 40 Mg Tablet) 40 mg PO BID [facility] Last Admin: 12/18/19 09:21 Dose: 40 mg Documented by: Polyethylene Glycol (Polyethylene Glycol 3350 17 Gm Packet) 17 gm PO DAILY [facility] Last Admin: 12/18/19 09:22 Dose: 17 gm Documented by: Prochlorperazine Edisylate (Prochlorperazine 10 Mg/2 Ml Vial) 10 mg IV Q6H PRN PRN PRN Reason: Nausea/Vomiting Last Admin: 12/11/19 00:21 Dose: 10 mg Documented by: Senna/Docusate Sodium (Senna/Docusate Sodium 1 Tablet) 2 tablet PO BID PRN PRN PRN Reason: Constipation Last Admin: 12/13/19 22:09 Dose: 1 tablet Documented by: Sodium Chloride (0.9% Saline Lock 10 Ml Syringe) 10 - 40 ml IV UD PRN PRN Reason: SALINE FLUSH Last Admin: 12/18/19 09:45 Dose: 10 ml Documented by: STROKE Vital Signs/Narrative: Vital Signs Pulse Pulse Ox Pulse Ox Pulse Ox 12/18/19 11:55 98 12/18/19 11:03 86 93 93 Medical Necessity - Tobacco Use Smoking Status: Former smoker Assessment/Plan All Active Problems (Last Reviewed 12/09/19 @ 04:[address] Lul Mazariegos MD) COPD with acute exacerbation (Acute) Septic shock (Acute) Septic shock (Acute) Shortness of breath (Acute) Asthma (Acute) ALEXYS (acute kidney injury) (Acute) 1. Septic shock 2/2 RLL pna with Pseudomonas and MRSA, complicated by hx asthma- continue vanc/cefepime. blood cx with coag neg staph. pulm/ID following. ongoing fevers. maintain IV abx for now. Pt of Dr. Bazzi. Failed o/p levaquin/doxy. Repeat CXR shows large right sided opacity, fluid vs consolidation vs atelectasis -Started IV lasix. BNP neg but pt is Multiple liters + and has been off lasix, legs are very edematous. -hold lovenox for possible thoracentesis 2. ALEXYS - worsening renal function. recheck in AM. nephrotoxic agents held. Possibly cardiorenal. lasix started. trend BMP. 3. HTN - stable 4. pAfib - NSR. flecainide. cardizem was held for shock.plan to resume eliquis at dc. 5. hx cdiff - no diarrhea. pt requests probiotic 6. hypothyroidism - synthroid 7. morbid obesity - procurement clerk consult. DVT ppx: lovenox --> held for possible thora tomorrow DC planning: ongoing fevers. likely needs home o2. pt declined c. This patient was seen by Graham Fraire PA-C under the supervision of Doctor Mitchell.
[2019-12-18] MEDS: oxyCODONE 5 MG Tablet 10 MG PO (15:40)
[2019-12-18 15:51] LABS: ALB/GLOB Ratio 0.3 RATIO (0.9-2.4); Globulin 5.8 g/dL (2.2-4.2); LDH 277 U/L (84-246); Protein, Total 7.6 g/dL (6.4-8.2)
[2019-12-18 16:03] LABS: Vancomycin, Random Level 28.3 ug/mL (0.0-15.0)
--- NOTE | 2019-12-18 17:18 | PCM.RX.CS ---
Consult Pharmacy has been consulted to manage selected antiobiotic: Vancomycin Type of Consult: Follow-up Prior Doses of Antibiotics Received/Current Regimen: had been on 1250mg IV q24h but that has been held since yesterday Labs: Sodium 139 mmol/L (136-145) 12/18/19 02:40 Potassium 3.7 mmol/L (3.5-5.1) 12/18/19 02:40 Chloride 115 mmol/L (98-107) H 12/18/19 02:40 Carbon Dioxide 16.0 mmol/L (21.0-32.0) L 12/18/19 02:40 Anion Gap 8 (5-15) 12/18/19 02:40 BUN 36 mg/dL (7-18) H 12/18/19 02:40 Creatinine 1.97 mg/dL (0.55-1.02) H 12/18/19 02:40 Est GFR (MDRD) Af Amer 33 mL/min (>60) L 12/18/19 02:40 Est GFR (MDRD) Non-Af 27 mL/min (>60) L 12/18/19 02:40 BUN/Creatinine Ratio 18.3 RATIO (-20) 12/18/19 02:40 Glucose 96 mg/dL (74-106) 12/18/19 02:40 Vancomycin Trough 30.6 ug/mL (5.0-15.0) H 12/18/19 02:40 Random Vancomycin 28.3 ug/mL (0.0-15.0) H 12/18/19 15:15 Microbiology: Microbiology 12/11/19 07:12 Blood Culture (Wb) - Right Hand Blood Culture - Final No growth in 5 days. 12/10/19 23:45 Blood Culture (Wb) - Anticubital Right Bacteria Detection (PCR) - Final Coag Negative Staph 12/10/19 23:45 Blood Culture (Wb) - Anticubital Right Blood Culture - Final Coag Negative Staph 12/08/19 23:00 Blood Culture (Wb) - Arm Left Blood Culture - Final No growth in 5 days. 12/08/19 22:30 Blood Culture (Wb) - Anticubital Left Blood Culture - Final No growth in 5 days. 12/09/19 07:55 Sputum, Expectorated/Coughed Gram Stain - Final 12/09/19 07:55 Sputum, Expectorated/Coughed Respiratory Culture - Final Pseudomonas aeroginosa Meth. resistant Staph. aureus 12/09/19 00:30 Urine, Clean Catch Urine Culture - Final Mixed Gram Pos & Gram Neg Org 12/09/19 18:50 Urine, Clean Catch Legionella Antigen - Final 12/09/19 18:50 Urine, Clean Catch Streptococcus pneumoniae Antigen (M - Final 12/08/19 23:15 Mucosa - Nasopharyngeal Respiratory Panel (PCR) - Final Weight used for dosin.6 kg Estimated Creatinine Clearance: 21.5ml/min Goal Trough: 15-20 mcg/mL Pharmacy Plan for Drug Dosing: The vancomycin random level drawn today at 15:15 came back as 28.3. It has only come down a fraction from the 30.6 random level drawn this morning about 12 hours ago. Dosing will not be restarted until it is back below 20 so will keep holding further doses. Another random level will be ordered to be drawn about 24 hours from this most recent level and dosing will be reevaluated from there. Pharmacy Service will continue to monitor and adjust dosing as required. Follow-Up Labs: Trough Vancomycin - random Labs to be done on [date and time ordered]: 12/19/19 15:00
--- NOTE | 2019-12-18 19:42 | CPS ---
pt has plural effuion vest not done
[2019-12-18] MEDS: Montelukast 10 MG Tablet PO (21:26)
[2019-12-19] VITALS (15 sets, daily range): BP systolic 103–134; BP diastolic 45–69; PULSE 92–113; RESP 16–20; TEMP 36.7–37.8; O2SAT 93–96
[2019-12-19] MEDS: Levothyroxine 25 MCG TABLET PO (05:30)
[2019-12-19 07:25] LABS: Absolute Lymphocyte Count 1.13 X10^3/uL (0.83-4.51); Absolute Neutrophil Count 9.2 X10^3/uL (2.0-7.7); Basophil# 0.05 X10^3/uL; Basophil% 0.4 % (0-1); Eosinophil# 0.16 X10^3/uL; Eosinophils% 1.4 % (0-5); Hematocrit 27.2 % (37-47); Hemoglobin 8.2 g/dL (12.0-15.0); Lymphocyte # 1.13 X10^3/ul (4.0); Lymphocyte % 9.6 % (19-41); Mean Corp Hgb Conc 30.1 g/dL (32-36); Mean Corpuscular Hgb 28.7 pg (27.0-32.0); Mean Corpuscular Volume 95.1 fL (81-99); Mean Platelet Vol. 9.9 fl (6.2-12.0); Monocyte# 0.94 X10^3/uL; NRBC Flagged by Analyzer 0 % (0-5); Neutrophil # 9.24 X10^3/uL (2.7-7.7); Neutrophil % 78.2 % (47-70); POSITIVE MORPHOLOGY YES; Platelet Count 461 K/mm3 (150-450); RBC Distribution Width CV 16.5 % (11.6-14.6); RBC Distribution Width SD 58.4 fl (35.1-43.9); Red Blood Count 2.86 M/mm3 (4.2-5.4); White Blood Count 11.8 K/mm3 (4.4-11.0)
[2019-12-19 07:45] LABS: International Normalized Ratio 1.4; Prothrombin Time (Protime)PT. 16.5 SECONDS (11.7-14.9)
[2019-12-19 07:55] LABS: Differential Indicated SCAN CRITERIA MET
--- NOTE | 2019-12-19 08:00 | US_ITS ---
STUDY: SUPERFICIAL ULTRASOUND - BILATERAL PLEURAL SPACES. REASON FOR EXAM: Female, 64 [address] EFF TECHNIQUE: A superficial ultrasound was performed with real-time and static franco-scale imaging. COMPARISON: None. FINDINGS: There are small bilateral pleural effusions slightly more prominent on the right side. 2 small for a safe thoracentesis. US/Chest IMPRESSION: Small bilateral pleural effusions not enough for a safe thoracentesis. Electronically Signed: Lance Back, at 15:38 EST , Service support ,
[2019-12-19 08:08] LABS: ALB/GLOB Ratio 0.3 RATIO (0.9-2.4); Anion Gap 9 (5-15); BUN 38 mg/dL (7-18); BUN/Creat Ratio 16.5 RATIO (10-20); Calcium,Total 9.2 mg/dL (8.5-10.1); Chloride 111 mmol/L (98-107); Creatinine, Serum 2.31 mg/dL (0.55-1.02); EST Glomerular Filtration Rate 22 mL/min (>60); Est Glom Filt Rate - Afr Amer 27 mL/min (>60); Estimated Creatinine Clearance 18.32 ml/min; Globulin 5.8 g/dL (2.2-4.2); Glucose 87 mg/dL (74-106); LDH 249 U/L (84-246); Potassium 3.5 mmol/L (3.5-5.1); Protein, Total 7.4 g/dL (6.4-8.2); Sodium Level 138 mmol/L (136-145)
[2019-12-19 08:14] LABS: Atypical Lymphocyte RARE %; Differential Comment SCANNED
[2019-12-19 08:15] LABS: Hypochromasia 2+; Macrocytosis 1+
[2019-12-19 08:16] LABS: Partial Thromboplast Time 41.4 Seconds (24.1-36.2)
[2019-12-19] MEDS: guaiFENesin 1,200 MG Tablet 1200 MG PO ×2 (09:26→21:07)
[2019-12-19] MEDS: Flecainide 100 MG Tablet 50 MG PO ×2 (09:26→21:08)
[2019-12-19] MEDS: Allopurinol 100 MG Tablet PO (09:26)
[2019-12-19] MEDS: Pantoprazole Sodium 40 MG Tablet PO ×2 (09:26→21:07)
[2019-12-19] MEDS: Lidocaine 5% Patch 2 PATCH TOPICAL (09:28)
[2019-12-19] MEDS: 0.9% Saline Lock 10 ML Syringe IV (11:30)
[2019-12-19] MEDS: Furosemide 40 MG/4 ML Vial IV (11:30)
--- NOTE | 2019-12-19 12:58 | PN_ITS ---
Patient Problems: Active and Suspected Problems (Last Reviewed 12/09/19 @ 04:[address] Lul Mazariegos MD) COPD with acute exacerbation (Acute) Septic shock (Acute) Septic shock (Acute) Shortness of breath (Acute) Asthma (Acute) ALEXYS (acute kidney injury) (Acute) Reason for Visit: Shortness of breath, pneumonia Subjective: Ongoing shortness of breath, patient notes that she has had improvement today. Still has ongoing productive cough. Lower extremity edema somewhat improved, however she does remain edematous. No chest pain today. No fevers or chills. Patient went for thoracentesis today however there was not enough fluid to drain. Vitals/I&O's: Vital Signs Temp Pulse Resp BP Pulse Ox 99.6 F H 113 H 20 H 130/59 H 94 12/19/19 09:07 12/19/19 11:06 12/19/19 09:07 12/19/19 09:07 12/19/19 09:07 Oxygen Flow Rate (L/min) [ 2 AMBULATION with Oxygen] Oxygen Flow Rate (L/min) 1 Oxygen Delivery Method Nasal Cannula Weight: 240 lb 11.916 oz Body Mass Index (BMI) 45.8 Intake and Output for Last 24 Hours 12/17/19 12/18/19 12/19/19 23:59 23:59 23:59 Intake Total 2395 / 2395 1107.25 / 1107.25 120 / 120 Balance 2395 / 2395 1107.25 / 1107.25 120 / 120 General: Alert, Oriented x3, Cooperative HEENT: Atraumatic, PERRLA, EOMI, Normocephalic Neck: Supple, No JVD, Negative Carotid Bruits Lungs: Clear to auscultation, Diminished Cardiovascular: Regular rate, No murmurs Abdomen: Bowel Sounds Present, Soft, Non Tender, Obese Extremities: No edema, Capillary Refill Less than 3 Seconds Skin: No rashes, No breakdown Musculoskeletal: No Tenderness to Palpation of Joints or Extremities Neurological: Cranial nerves II-XII grossly intact Psych/Mental Status: Normal Affect, Appropriate, Alert and oriented to time, place, person, mood and affect Microbiology Past 72 Hours 12/19/19 10:45 Stool Stool Occult Blood (DALILA) - Final Occult Blood Positive Laboratory Results 12/18/19 15:15: Random Vancomycin 28.3 H 12/18/19 15:15: Lactate Dehydrogenase 277 H, Total Protein 7.6, Globulin 5.8 H, Albumin/Globulin Ratio 0.3 L 12/18/19 15:15: Fluid Glucose 76 H, Fluid Total Protein 7.0, Fluid LDH 239 12/18/19 15:15: Fluid pH Pending 12/19/19 07:15: WBC 11.8 H, RBC 2.86 L, Hgb 8.2 L, Hct 27.2 L, MCV 95.1, MCH 28.7, MCHC 30.1 L D, RDW Std Deviation 58.4 H, RDW Coeff of Lanre 16.5 H, Plt Count 461 H, MPV 9.9, Immature Gran % (Auto) 2.400 H, Neut % (Auto) 78.2 H, Lymph % (Auto) 9.6 L, [place] % (Auto) 8.0, Eos % (Auto) 1.4, Baso % (Auto) 0.4, Absolute Neuts (auto) 9.2 H, Absolute Lymphs (auto) 1.13, Nucleated RBC % 0, Differential Comment SCANNED, Atypical Lymphocytes RARE, Hypochromasia 2+, Macrocytosis 1+ 12/19/19 07:15: Sodium 138, Potassium 3.5, Chloride 111 H, Carbon Dioxide 18.0 L , Anion Gap 9, BUN 38 H, Creatinine 2.31 H, Estim Creat Clear Calc 18.32, Est GFR (MDRD) Af Amer 27 L, Est GFR (MDRD) Non-Af 22 L, BUN/Creatinine Ratio 16.5, Glucose 87, Calcium 9.2, Lactate Dehydrogenase 249 H, Total Protein 7.4, Globulin 5.8 H, Albumin/Globulin Ratio 0.3 L 12/19/19 07:15: PT 16.5 H, INR 1.4, APTT 41.4 H 12/19/19 12:17: Blood Type Pending, Antibody Screen Pending, Crossmatch See Detail Current Medications Acetaminophen (Acetaminophen 325 Mg Tablet) 650 mg PO Q4H PRN PRN PRN Reason: TEMP > 100 Last Admin: 12/18/19 09:45 Dose: 650 mg Documented by: Al Hydroxide/Mg Hydroxide (Mag Hydrox/Al Hydrox/Simeth 30 Ml Udc) 30 ml PO Q6H PRN PRN PRN Reason: Gastric Burning Albuterol Sulfate (Albuterol 2.5 Mg/3 Ml Vial.Neb.) 2.5 mg INHALATION Q2H PRN PRN PRN Reason: sob/wheezing Albuterol/Ipratropium (Ipratropium/Albuterol Sulfate 3 Ml Ampul.Neb) 3 ml INHALATION Q4HWA.RT [facility] Last Admin: 12/18/19 19:30 Dose: 3 ml Documented by: Allopurinol (Allopurinol 100 Mg Tablet) 100 mg PO DAILY [facility] Last Admin: 12/19/19 09:26 Dose: 100 mg Documented by: Apixaban (Apixaban 5 Mg Tablet) 5 mg PO BID [facility] Azelastine HCl (Azelastine Hcl Nasal.Sry) 2 spray NASAL BID [facility] Last Admin: 12/19/19 09:41 Dose: Not Given Documented by: Bisacodyl (Bisacodyl 5 Mg Tablet) 10 mg PO DAILY PRN PRN PRN Reason: Constipation Last Admin: 12/15/19 23:35 Dose: 10 mg Documented by: Budesonide (Budesonide Respules 0.5 Mg/2 Ml Ampul.Neb.) 0.5 mg INHALATION Q12H.RT [facility] Last Admin: 12/18/19 19:30 Dose: 0.5 mg Documented by: Flecainide Acetate (Flecainide 100 Mg Tablet) 50 mg PO BID [facility] Last Admin: 12/19/19 09:26 Dose: 50 mg Documented by: Furosemide (Furosemide 40 Mg/4 Ml Vial) 40 mg IV BID@1000,1800 [facility] Last Admin: 12/19/19 11:30 Dose: 40 mg Documented by: Guaifenesin (Guaifenesin 1,200 Mg Tablet) 1,200 mg PO BID [facility] Last Admin: 12/19/19 09:26 Dose: 1,200 mg Documented by: Sodium Chloride () 250 mls @ 15 mls/hr IV .[id number] PRN PRN Reason: Saline Flush Last Infusion: 12/18/19 22:35 Dose: 0 mls/hr Documented by: Sodium Chloride () 250 mls @ 15 mls/hr IV .[id number] PRN PRN Reason: Additional IVPB Infusion Vancomycin IV Pharmacy to Dose (1 ea/ Sodium Chloride) 500 mls @ 250 mls/hr IV PRN PRN; Protocol PRN Reason: Rx to Dose Cefepime HCl 2 gm/ Sodium (Chloride) 100 mls @ 200 mls/hr IV Q12 [facility] Last Infusion: 12/19/19 10:05 Dose: Infused Documented by: Lactobacillus Acidophilus (Lactobacillus Acidophilus) 1 tablet PO TID [facility] Last Admin: 12/19/19 05:30 Dose: 1 tablet Documented by: Levothyroxine Sodium (Levothyroxine 25 Mcg Tablet) 25 mcg PO DAILY@0600 [facility] Last Admin: 12/19/19 05:30 Dose: 25 mcg Documented by: Lidocaine (Lidocaine 5% Patch) 2 patch TOPICAL DAILY [facility]; Protocol Last Admin: 12/19/19 09:28 Dose: 1 patch Documented by: Montelukast Sodium (Montelukast 10 Mg Tablet) 10 mg PO QHS [facility] Last Admin: 12/18/19 21:26 Dose: 10 mg Documented by: Ondansetron HCl (Ondansetron 4 Mg/2 Ml Vial) 4 mg IV Q8H PRN PRN PRN Reason: NAUSEA/VOMITING Oxycodone HCl (Oxycodone 5 Mg Tablet) 10 mg PO Q4H PRN PRN PRN Reason: Pain Score 4-10 Last Admin: 12/18/19 15:40 Dose: 10 mg Documented by: Pantoprazole Sodium (Pantoprazole Sodium 40 Mg Tablet) 40 mg PO BID [facility] Last Admin: 12/19/19 09:26 Dose: 40 mg Documented by: Polyethylene Glycol (Polyethylene Glycol 3350 17 Gm Packet) 17 gm PO DAILY [facility] Last Admin: 12/19/19 11:24 Dose: Not Given Documented by: Prochlorperazine Edisylate (Prochlorperazine 10 Mg/2 Ml Vial) 10 mg IV Q6H PRN PRN PRN Reason: Nausea/Vomiting Last Admin: 12/11/19 00:21 Dose: 10 mg Documented by: Senna/Docusate Sodium (Senna/Docusate Sodium 1 Tablet) 2 tablet PO BID PRN PRN PRN Reason: Constipation Last Admin: 12/13/19 22:09 Dose: 1 tablet Documented by: Sodium Chloride (0.9% Saline Lock 10 Ml Syringe) 10 - 40 ml IV UD PRN PRN Reason: SALINE FLUSH Last Admin: 11/04/20 11:30 Dose: 10 ml Documented by: STROKE Vital Signs/Narrative: Vital Signs Temp Pulse Resp BP Pulse Ox 12/19/19 11:06 113 H 12/19/19 09:07 99.6 F H 104 H 20 H 130/59 H 94 Medical Necessity - Tobacco Use Smoking Status: Former smoker Assessment/Plan All Active Problems (Last Reviewed 12/09/19 @ 04:[address] Lul Mazariegos MD) COPD with acute exacerbation (Acute) Septic shock (Acute) Septic shock (Acute) Shortness of breath (Acute) Asthma (Acute) ALEXYS (acute kidney injury) (Acute) 1. Septic shock 2/2 RLL pna with Pseudomonas and MRSA, complicated by hx asthma- continue vanc/cefepime. blood cx with coag neg staph. pulm/ID following. ongoing fevers. maintain IV abx for now. Pt of Dr. Bazzi. Failed o/p levaquin/doxy. Repeat CXR shows large right sided opacity, fluid vs consolidation vs atelectasis -Started IV lasix. BNP neg but pt is Multiple liters + and has been off lasix, legs are very edematous. -not enough fluid for thoracentesis 2. Acute chronic diastolic CHF - last EF 65% echo 03/05. Stage 2 diastolic dysfunction. legs are edematous volume status still significantly positive. Lasix to PO with declining renal function. Pt will be transfused with 1 unit PRBC. platelets intact. 3. ALEXYS - worsening renal function. lasix to PO. 4. chronic anemia - + hemoccult stool. check iron and tibc. resume anticoagulation with caution. follow up with gen surgery as outpatient if hemoglobin remains stable. Transfuse 1 unit PRBC5 5. HTN - stable 6. pAfib - rate controlled. flecainide. cardizem was held for shock. plan to resume eliquis at dc if hgb stable. 7. hx cdiff - no diarrhea. pt given probiotic per pt request 8. hypothyroidism - synthroid 9. morbid obesity - seafood specialist consult. 10. Suspected GAGAN - pt doing ok off bipap. elevated stopbang score. PSG as outptient. DVT ppx: heparin drip started. DC planning: no fever so far today. monitor renal function/volume status overnight. walking pulse ox prior to DC. This patient was seen by Graham Fraire PA-C under the supervision of Doctor Mitchell.
[2019-12-19] MEDS: APIXABAN 5 MG TABLET PO (13:01)
[2019-12-19 13:36] LABS: Iron 24 ug/dL (50-170); Iron Binding Capacity,Total 168 ug/dL (250-450); PERCENT IRON SATURATION 14.3 % (15.0-55.0)
--- NOTE | 2019-12-19 14:11 | PCM.PN.PUL ---
Patient Problems: Active and Suspected Problems (Last Reviewed 12/09/19 @ 04:[address] Lul Mazariegos MD) COPD with acute exacerbation (Acute) Septic shock (Acute) Septic shock (Acute) Shortness of breath (Acute) Asthma (Acute) ALEXYS (acute kidney injury) (Acute) Subjective: The patient was seen and examined at the bedside this morning. Events from the last 24 hours have been reviewed. The patient is currently afebrile, hemodynamically stable and maintaining appropriate oxygen saturations on 1 L/min via nasal cannula. Creatinine increased this morning to 2.3 in light of more aggressive diuresis. Therefore, there are plans for ultrasound-guided thoracentesis later today. Objective: The patient's most recent lab work, culture data and imaging studies have all been personally reviewed. Sputum culture dated December 08 was positive for Pseudomonas aeruginosa and MRSA. - Physical Exam Vitals/I&O's: Vital Signs Temp Pulse Resp BP Pulse Ox 99.6 F H 113 H 20 H 130/59 H 95 12/19/19 09:07 12/19/19 11:06 12/19/19 09:07 12/19/19 09:07 12/19/19 13:50 Oxygen Flow Rate (L/min) [ 2 AMBULATION with Oxygen] Oxygen Flow Rate (L/min) 1 Oxygen Delivery Method Nasal Cannula Weight: 240 lb 11.916 oz Body Mass Index (BMI) 45.8 Intake and Output for Last 24 Hours 12/17/19 12/18/19 12/19/19 23:59 23:59 23:59 Intake Total 2395 / 2395 1107.25 / 1107.25 120 / 120 Balance 2395 / 2395 1107.25 / 1107.25 120 / 120 General: Alert, Oriented x3, Cooperative, No apparent distress HEENT: Atraumatic, PERRLA, Normocephalic Oral: Moist Mucosa, No Gingival or Mucosal Lesions/ Ulcerations Neck: Supple, No Nodes, Trachea Midline Lungs: No rhonchi, No wheeze, No rales, Diminished Cardiovascular: Regular rate, Regular Rhythm, Normal S1, Normal S2, No murmurs Abdomen: Bowel Sounds Present, Soft, Non Tender, Obese Extremities: No clubbing, No cyanosis, Edema Skin: No breakdown Musculoskeletal: No Tenderness to Palpation of Joints or Extremities Lymphatic: No Cervical, Supraclavicular, or Inguinal Adenopathy Neurological: Cranial nerves II-XII grossly intact, Neuro grossly intact Psych/Mental Status: Alert and oriented to time, place, person, mood and affect Labs (Last 48 Hours) 12/18/19 12/18/19 12/18/19 02:40 02:40 02:40 WBC 11.4 H RBC 2.91 L Hgb 8.2 L Hct 29.0 L MCV 99.7 H D MCH 28.2 MCHC 28.3 L D RDW Std Deviation 60.1 H RDW Coeff of Lanre 16.5 H Plt Count 413 MPV 10.0 Immature Gran % (Auto) 4.400 H Neut % (Auto) 75.9 H Lymph % (Auto) 10.7 L [place] % (Auto) 7.0 Eos % (Auto) 1.6 Baso % (Auto) 0.4 Absolute Neuts (auto) 8.6 H Absolute Lymphs (auto) 1.22 Nucleated RBC % 0 Differential Comment SCANNED Atypical Lymphocytes Hypochromasia Macrocytosis PT INR APTT Sodium 139 Potassium 3.7 Chloride 115 H Carbon Dioxide 16.0 L Anion Gap 8 BUN 36 H Creatinine 1.97 H Estim Creat Clear Calc 21.48 Est GFR (MDRD) Af Amer 33 L Est GFR (MDRD) Non-Af 27 L BUN/Creatinine Ratio 18.3 Glucose 96 Calcium 8.9 Iron TIBC Iron Saturation Total Bilirubin 0.30 AST 25 ALT 35 Alkaline Phosphatase 77 Lactate Dehydrogenase B-Natriuretic Peptide Total Protein 6.9 Albumin 1.5 L Globulin 5.4 H Albumin/Globulin Ratio 0.3 L Fluid pH Fluid Glucose Fluid Total Protein Fluid LDH Vancomycin Trough 30.6 H Random Vancomycin Blood Type Antibody Screen Crossmatch 12/18/19 12/18/19 12/18/19 02:40 15:15 15:15 WBC RBC Hgb Hct MCV MCH MCHC RDW Std Deviation RDW Coeff of Lanre Plt Count MPV Immature Gran % (Auto) Neut % (Auto) Lymph % (Auto) [place] % (Auto) Eos % (Auto) Baso % (Auto) Absolute Neuts (auto) Absolute Lymphs (auto) Nucleated RBC % Differential Comment Atypical Lymphocytes Hypochromasia Macrocytosis PT INR APTT Sodium Potassium Chloride Carbon Dioxide Anion Gap BUN Creatinine Estim Creat Clear Calc Est GFR (MDRD) Af Amer Est GFR (MDRD) Non-Af BUN/Creatinine Ratio Glucose Calcium Iron TIBC Iron Saturation Total Bilirubin AST ALT Alkaline Phosphatase Lactate Dehydrogenase 277 H B-Natriuretic Peptide 40.5 Total Protein 7.6 Albumin Globulin 5.8 H Albumin/Globulin Ratio 0.3 L Fluid pH Fluid Glucose Fluid Total Protein Fluid LDH Vancomycin Trough Random Vancomycin 28.3 H Blood Type Antibody Screen Crossmatch 12/18/19 12/18/19 12/19/19 15:15 15:15 07:15 WBC 11.8 H RBC 2.86 L Hgb 8.2 L Hct 27.2 L MCV 95.1 MCH 28.7 MCHC 30.1 L D RDW Std Deviation 58.4 H RDW Coeff of Lanre 16.5 H Plt Count 461 H MPV 9.9 Immature Gran % (Auto) 2.400 H Neut % (Auto) 78.2 H Lymph % (Auto) 9.6 L [place] % (Auto) 8.0 Eos % (Auto) 1.4 Baso % (Auto) 0.4 Absolute Neuts (auto) 9.2 H Absolute Lymphs (auto) 1.13 Nucleated RBC % 0 Differential Comment SCANNED Atypical Lymphocytes RARE Hypochromasia 2+ Macrocytosis 1+ PT INR APTT Sodium Potassium Chloride Carbon Dioxide Anion Gap BUN Creatinine Estim Creat Clear Calc Est GFR (MDRD) Af Amer Est GFR (MDRD) Non-Af BUN/Creatinine Ratio Glucose Calcium Iron TIBC Iron Saturation Total Bilirubin AST ALT Alkaline Phosphatase Lactate Dehydrogenase B-Natriuretic Peptide Total Protein Albumin Globulin Albumin/Globulin Ratio Fluid pH Pending Fluid Glucose 76 H Fluid Total Protein 7.0 Fluid LDH 239 Vancomycin Trough Random Vancomycin Blood Type Antibody Screen Crossmatch 12/19/19 12/19/19 12/19/19 07:15 07:15 07:15 WBC RBC Hgb Hct MCV MCH MCHC RDW Std Deviation RDW Coeff of Lanre Plt Count MPV Immature Gran % (Auto) Neut % (Auto) Lymph % (Auto) [place] % (Auto) Eos % (Auto) Baso % (Auto) Absolute Neuts (auto) Absolute Lymphs (auto) Nucleated RBC % Differential Comment Atypical Lymphocytes Hypochromasia Macrocytosis PT 16.5 H INR 1.4 APTT 41.4 H Sodium 138 Potassium 3.5 Chloride 111 H Carbon Dioxide 18.0 L Anion Gap 9 BUN 38 H Creatinine 2.31 H Estim Creat Clear Calc 18.32 Est GFR (MDRD) Af Amer 27 L Est GFR (MDRD) Non-Af 22 L BUN/Creatinine Ratio 16.5 Glucose 87 Calcium 9.2 Iron 24 L TIBC 168 L Iron Saturation 14.3 L Total Bilirubin AST ALT Alkaline Phosphatase Lactate Dehydrogenase 249 H B-Natriuretic Peptide Total Protein 7.4 Albumin Globulin 5.8 H Albumin/Globulin Ratio 0.3 L Fluid pH Fluid Glucose Fluid Total Protein Fluid LDH Vancomycin Trough Random Vancomycin Blood Type Antibody Screen Crossmatch 12/19/19 12:17 WBC RBC Hgb Hct MCV MCH MCHC RDW Std Deviation RDW Coeff of Lanre Plt Count MPV Immature Gran % (Auto) Neut % (Auto) Lymph % (Auto) [place] % (Auto) Eos % (Auto) Baso % (Auto) Absolute Neuts (auto) Absolute Lymphs (auto) Nucleated RBC % Differential Comment Atypical Lymphocytes Hypochromasia Macrocytosis PT INR APTT Sodium Potassium Chloride Carbon Dioxide Anion Gap BUN Creatinine Estim Creat Clear Calc Est GFR (MDRD) Af Amer Est GFR (MDRD) Non-Af BUN/Creatinine Ratio Glucose Calcium Iron TIBC Iron Saturation Total Bilirubin AST ALT Alkaline Phosphatase Lactate Dehydrogenase B-Natriuretic Peptide Total Protein Albumin Globulin Albumin/Globulin Ratio Fluid pH Fluid Glucose Fluid Total Protein Fluid LDH Vancomycin Trough Random Vancomycin Blood Type Pending Antibody Screen Pending Crossmatch See Detail Microbiology 12/19/19 10:45 Stool Stool Occult Blood (DALILA) - Final Occult Blood Positive Clinical Impression(s) from Imaging Studies Chest X-Ray 12/08/19 22:37 IMPRESSION: Stable right upper lobe lung nodule. Chronic changes in the lung bases. No evidence for acute cardiopulmonary pathology. Electronically Signed: Archie Bowers MD at 0:22 EDT , Service support , Chest X-Ray 12/09/19 05:06 IMPRESSION: Central line is in adequate position. Chronic changes in the lower lung manzano. No evidence for acute cardiopulmonary pathology. Electronically Signed: Archie Bowers MD at 7:03 EDT , Service support , Chest CT 12/09/19 09:24 IMPRESSION: 1. Dense right lower lobe pneumonia. Follow-up CT is recommended after resolution of symptoms to exclude mass, namely bronchogenic carcinoma 2. 4 mm noncalcified right upper lobe nodule and follow-up CT is recommended in 12 months document stability. Electronically Signed: Johnny Mo MD at 10:49 EDT Tel , Service support , Chest CT 12/13/19 09:39 IMPRESSION: Progressive infiltration in the right lower lobe as well as right pleural effusion. Minimal thickening of the left pleura with the mild left basilar atelectasis. Stable noncalcified bilateral pulmonary nodules. Electronically Signed: Lance Back, at 10:40 EDT , Service support , Chest X-Ray 12/18/19 05:55 IMPRESSION: Interval large opacification of the right lower lobe which is suspicious for large right effusion with atelectasis. Left lower lobe atelectasis and/or effusion. Electronically Signed: Anita Thao MD at 6:35 EST Tel , Service support , Current Medications Acetaminophen (Acetaminophen 325 Mg Tablet) 650 mg PO Q4H PRN PRN PRN Reason: TEMP > 100 Last Admin: 12/18/19 09:45 Dose: 650 mg Documented by: Al Hydroxide/Mg Hydroxide (Mag Hydrox/Al Hydrox/Simeth 30 Ml Udc) 30 ml PO Q6H PRN PRN PRN Reason: Gastric Burning Albuterol Sulfate (Albuterol 2.5 Mg/3 Ml Vial.Neb.) 2.5 mg INHALATION Q2H PRN PRN PRN Reason: sob/wheezing Albuterol/Ipratropium (Ipratropium/Albuterol Sulfate 3 Ml Ampul.Neb) 3 ml INHALATION Q4HWA.RT MIHAI Last Admin: 12/18/19 19:30 Dose: 3 ml Documented by: Allopurinol (Allopurinol 100 Mg Tablet) 100 mg PO DAILY [facility] Last Admin: 12/19/19 09:26 Dose: 100 mg Documented by: Azelastine HCl (Azelastine Hcl Nasal.Sry) 2 spray NASAL BID [facility] Last Admin: 12/19/19 09:41 Dose: Not Given Documented by: Bisacodyl (Bisacodyl 5 Mg Tablet) 10 mg PO DAILY PRN PRN PRN Reason: Constipation Last Admin: 12/15/19 23:35 Dose: 10 mg Documented by: Budesonide (Budesonide Respules 0.5 Mg/2 Ml Ampul.Neb.) 0.5 mg INHALATION Q12H.RT [facility] Last Admin: 12/18/19 19:30 Dose: 0.5 mg Documented by: Flecainide Acetate (Flecainide 100 Mg Tablet) 50 mg PO BID [facility] Last Admin: 12/19/19 09:26 Dose: 50 mg Documented by: Furosemide (Furosemide 40 Mg Tablet) 40 mg PO DAILY [facility] Guaifenesin (Guaifenesin 1,200 Mg Tablet) 1,200 mg PO BID [facility] Last Admin: 12/19/19 09:26 Dose: 1,200 mg Documented by: Heparin Sodium (Porcine) (Heparin Injection (Vial) 5,000 Unit/Ml Vial) 0 unit IV UD PRN; Protocol PRN Reason: dose adjustment Sodium Chloride () 250 mls @ 15 mls/hr IV .[id number] PRN PRN Reason: Saline Flush Last Infusion: 12/18/19 22:35 Dose: 0 mls/hr Documented by: Sodium Chloride () 250 mls @ 15 mls/hr IV .[id number] PRN PRN Reason: Additional IVPB Infusion Vancomycin IV Pharmacy to Dose (1 ea/ Sodium Chloride) 500 mls @ 250 mls/hr IV PRN PRN; Protocol PRN Reason: Rx to Dose Cefepime HCl 2 gm/ Sodium (Chloride) 100 mls @ 200 mls/hr IV Q12 [facility] Last Infusion: 12/19/19 10:05 Dose: Infused Documented by: Heparin Sodium/Dextrose () 25,000 units in 250 mls @ 15 mls/hr IV .[id number] [facility]; Protocol Lactobacillus Acidophilus (Lactobacillus Acidophilus) 1 tablet PO TID [facility] Last Admin: 12/19/19 05:30 Dose: 1 tablet Documented by: Levothyroxine Sodium (Levothyroxine 25 Mcg Tablet) 25 mcg PO DAILY@0600 [facility] Last Admin: 12/19/19 05:30 Dose: 25 mcg Documented by: Lidocaine (Lidocaine 5% Patch) 2 patch TOPICAL DAILY [facility]; Protocol Last Admin: 12/19/19 09:28 Dose: 1 patch Documented by: Montelukast Sodium (Montelukast 10 Mg Tablet) 10 mg PO QHS [facility] Last Admin: 12/18/19 21:26 Dose: 10 mg Documented by: Ondansetron HCl (Ondansetron 4 Mg/2 Ml Vial) 4 mg IV Q8H PRN PRN PRN Reason: NAUSEA/VOMITING Oxycodone HCl (Oxycodone 5 Mg Tablet) 5 mg PO Q6H PRN PRN PRN Reason: Pain Score 4-10 Pantoprazole Sodium (Pantoprazole Sodium 40 Mg Tablet) 40 mg PO BID [facility] Last Admin: 12/19/19 09:26 Dose: 40 mg Documented by: Polyethylene Glycol (Polyethylene Glycol 3350 17 Gm Packet) 17 gm PO DAILY [facility] Last Admin: 12/19/19 11:24 Dose: Not Given Documented by: Prochlorperazine Edisylate (Prochlorperazine 10 Mg/2 Ml Vial) 10 mg IV Q6H PRN PRN PRN Reason: Nausea/Vomiting Last Admin: 12/11/19 00:21 Dose: 10 mg Documented by: Senna/Docusate Sodium (Senna/Docusate Sodium 1 Tablet) 2 tablet PO BID PRN PRN PRN Reason: Constipation Last Admin: 12/13/19 22:09 Dose: 1 tablet Documented by: Sodium Chloride (0.9% Saline Lock 10 Ml Syringe) 10 - 40 ml IV UD PRN PRN Reason: SALINE FLUSH Last Admin: 12/19/19 11:30 Dose: 10 ml Documented by: Medical Necessity - Tobacco Use Smoking Status: Former smoker Assessment/Plan All Active Problems (Last Reviewed 12/09/19 @ 04:[address] Lul Mazariegos MD) COPD with acute exacerbation (Acute) Septic shock (Acute) Septic shock (Acute) Shortness of breath (Acute) Asthma (Acute) ALEXYS (acute kidney injury) (Acute) RECOMMENDATIONS: 1. Resume Lovenox following thoracentesis. 2. Continue antimicrobials per infectious diseases. 3. Continue aggressive bronchopulmonary hygiene. 4. Continue scheduled bronchodilator therapy and twice daily budesonide. 5. Monitor H&H daily and transfuse if hemoglobin drops below 7 g/dL. 6. BiPAP rescue as needed. 7. Resume p.o. Lasix regimen. 8. Encourage incentive spirometer use and mobilize patient as tolerated. IMPRESSIONS: 1. Septic shock secondary to right lower lobe pneumonia The patient does have underlying asthma, but carries a history of steroid induced myopathy. Therefore, she will be continued on bronchodilators and budesonide. The patient was recently treated at the beginning of November with antimicrobials for an underlying respiratory infection with sputum culture that was positive for both MRSA and Pseudomonas. Sputum is again growing similar pathogens. The patient will be continued on antimicrobials per infectious diseases recommendations. Continue aggressive bronchopulmonary hygiene. The patient remains hemodynamically stable. 2. Acute hypoxic respiratory failure secondary to #1 Patient likely has an element of obstructive sleep apnea and dense consolidation leading to decompensation. Fever curve is improving on current antibiotics. Attempting to avoid systemic steroids secondary to a history of critical care neuropathy. The patient does have a sizable pleural effusion on chest x-ray which could be related to hypervolemia as the patient is over 19 L positive for the hospitalization. However, the patient's creatinine worsened in light of more aggressive diuresis. There are plans for thoracentesis today. 3. Anemia The patient does have a history of anemia and was anticoagulated on Eliquis due to a history of paroxysmal atrial fibrillation. The patient's Eliquis was transitioned to Lovenox, given anemia. Recommend continuing twice daily PPI therapy. Plan to monitor H&H daily and transfuse if hemoglobin drops below 7 g/dL. The patient can resume her Eliquis at discharge. 4. Acute kidney injury Likely prerenal in etiology. Continue to monitor urine output. No indication for renal replacement therapy. 5. History of moderate persistent asthma and steroid induced myopathy/history of organizing pneumonia Continue current supportive measures including scheduled bronchodilator therapy, twice daily budesonide and antimicrobials per infectious diseases recommendations. 6. History of lung nodules/GERD/paroxysmal atrial fibrillation/history of DVT/PE/anxiety/hypothyroidism/heart failure with preserved ejection fraction Complicates care, management, recovery and prognosis. Continue home medications as indicated. This note was generated with [employer] software. It may contain incorrect words, spelling, and punctuation that were not noted in checking the note before signing. Inpatient E&M: 35363 Subs Hosp L2
[2019-12-19] MEDS: Acetaminophen 325 MG Tablet 650 MG PO (15:26)
[2019-12-19 16:09] LABS: Vancomycin, Random Level 23.7 ug/mL (0.0-15.0)
--- NOTE | 2019-12-19 16:37 | PCM.RX.CS ---
Consult Pharmacy has been consulted to manage selected antiobiotic: Vancomycin Type of Consult: Follow-up Suspected Infection: Pneumonia Prior Doses of Antibiotics Received/Current Regimen: Had been on 1250mg iv daily. Labs: Sodium 138 mmol/L (136-145) 12/19/19 07:15 Potassium 3.5 mmol/L (3.5-5.1) 12/19/19 07:15 Chloride 111 mmol/L (98-107) H 12/19/19 07:15 Carbon Dioxide 18.0 mmol/L (21.0-32.0) L 12/19/19 07:15 Anion Gap 9 (5-15) 12/19/19 07:15 BUN 38 mg/dL (7-18) H 12/19/19 07:15 Creatinine 2.31 mg/dL (0.55-1.02) H 12/19/19 07:15 Est GFR (MDRD) Af Amer 27 mL/min (>60) L 12/19/19 07:15 Est GFR (MDRD) Non-Af 22 mL/min (>60) L 12/19/19 07:15 BUN/Creatinine Ratio 16.5 RATIO (-20) 12/19/19 07:15 Glucose 87 mg/dL (74-106) 12/19/19 07:15 Vancomycin Trough 30.6 ug/mL (5.0-15.0) H 12/18/19 02:40 Random Vancomycin 23.7 ug/mL (0.0-15.0) H 12/19/19 15:21 Microbiology: Microbiology 12/19/19 10:45 Stool Stool Occult Blood (DALILA) - Final Occult Blood Positive 12/11/19 07:12 Blood Culture (Wb) - Right Hand Blood Culture - Final No growth in 5 days. 12/10/19 23:45 Blood Culture (Wb) - Anticubital Right Bacteria Detection (PCR) - Final Coag Negative Staph 12/10/19 23:45 Blood Culture (Wb) - Anticubital Right Blood Culture - Final Coag Negative Staph 12/08/19 23:00 Blood Culture (Wb) - Arm Left Blood Culture - Final No growth in 5 days. 12/08/19 22:30 Blood Culture (Wb) - Anticubital Left Blood Culture - Final No growth in 5 days. 12/09/19 07:55 Sputum, Expectorated/Coughed Gram Stain - Final 12/09/19 07:55 Sputum, Expectorated/Coughed Respiratory Culture - Final Pseudomonas aeroginosa Meth. resistant Staph. aureus 12/09/19 00:30 Urine, Clean Catch Urine Culture - Final Mixed Gram Pos & Gram Neg Org 12/09/19 18:50 Urine, Clean Catch Legionella Antigen - Final 12/09/19 18:50 Urine, Clean Catch Streptococcus pneumoniae Antigen (M - Final 12/08/19 23:15 Mucosa - Nasopharyngeal Respiratory Panel (PCR) - Final Weight used for dosin kg Estimated Creatinine Clearance: ~28 ml/min Goal Trough: 15-20 mcg/mL Pharmacy Plan for Drug Dosing: Renal function worsened with Cr changing from 1.97 to 2.31. CrCl calculated to be ~28ml/min for adjusted body weight of 72.3kg. Random level today still >20 at 23.7. Will continue to hold further dosing and repeat random level in 24hrs. Pharmacy Service will continue to monitor and adjust dosing as required. Follow-Up Labs: Trough Vancomycin - random level 11.5.20 @1500
--- NOTE | 2019-12-19 17:39 | PN.ID_ITS ---
Patient Problems: Active and Suspected Problems (Last Reviewed 12/09/19 @ 04:[address] Lul Mazariegos MD) COPD with acute exacerbation (Acute) Septic shock (Acute) Septic shock (Acute) Shortness of breath (Acute) Asthma (Acute) ALEXYS (acute kidney injury) (Acute) Subjective: Breathing better, still a fever today, c/o diarrhea - Physical Exam Vitals/I&O's: Vital Signs Temp Pulse Resp BP Pulse Ox 100.0 F H 107 H 18 108/69 96 12/19/19 15:49 12/19/19 15:49 12/19/19 16:24 12/19/19 15:49 12/19/19 15:49 Oxygen Flow Rate (L/min) [ 2 AMBULATION with Oxygen] Oxygen Flow Rate (L/min) 1 Oxygen Delivery Method Room Air Weight: 109.2 kg Body Mass Index (BMI) 45.8 Intake and Output for Last 24 Hours 12/17/19 12/18/19 12/19/19 23:59 23:59 23:59 Intake Total 2395 / 2395 1107.25 / 1107.25 120 / 120 Balance 2395 / 2395 1107.25 / 1107.25 120 / 120 General: Alert, Cooperative, No apparent distress Lungs: Clear to auscultation, Diminished Cardiovascular: Regular rate, Regular Rhythm Abdomen: Soft, Non Tender, Non-Distended Skin: No rashes Microbiology Past 72 Hours 12/19/19 10:45 Stool Stool Occult Blood (DALILA) - Final Occult Blood Positive Laboratory Results 12/12/19 08:20: Crossmatch See Detail 12/18/19 15:15: Fluid Glucose 76 H, Fluid Total Protein 7.0, Fluid LDH 239 12/19/19 07:15: WBC 11.8 H, RBC 2.86 L, Hgb 8.2 L, Hct 27.2 L, MCV 95.1, MCH 28.7, MCHC 30.1 L D, RDW Std Deviation 58.4 H, RDW Coeff of Lanre 16.5 H, Plt Count 461 H, MPV 9.9, Immature Gran % (Auto) 2.400 H, Neut % (Auto) 78.2 H, Lymph % (Auto) 9.6 L, [place] % (Auto) 8.0, Eos % (Auto) 1.4, Baso % (Auto) 0.4, Absolute Neuts (auto) 9.2 H, Absolute Lymphs (auto) 1.13, Nucleated RBC % 0, Di fferential Comment SCANNED, Atypical Lymphocytes RARE, Hypochromasia 2+, Macrocytosis 1+ 12/19/19 07:15: Sodium 138, Potassium 3.5, Chloride 111 H, Carbon Dioxide 18.0 L , Anion Gap 9, BUN 38 H, Creatinine 2.31 H, Estim Creat Clear Calc 18.32, Est GFR (MDRD) Af Amer 27 L, Est GFR (MDRD) Non-Af 22 L, BUN/Creatinine Ratio 16.5, Glucose 87, Calcium 9.2, Lactate Dehydrogenase 249 H, Total Protein 7.4, Globulin 5.8 H, Albumin/Globulin Ratio 0.3 L 12/19/19 07:15: PT 16.5 H, INR 1.4, APTT 41.4 H 12/19/19 07:15: Iron 24 L, TIBC 168 L, Iron Saturation 14.3 L 12/19/19 12:17: Blood Type A POSITIVE, Antibody Screen NEGATIVE, Crossmatch See Detail 12/19/19 15:21: Random Vancomycin 23.7 H Current Medications Acetaminophen (Acetaminophen 325 Mg Tablet) 650 mg PO Q4H PRN PRN PRN Reason: TEMP > 100 Last Admin: 12/19/19 15:26 Dose: 650 mg Documented by: Al Hydroxide/Mg Hydroxide (Mag Hydrox/Al Hydrox/Simeth 30 Ml Udc) 30 ml PO Q6H PRN PRN PRN Reason: Gastric Burning Albuterol Sulfate (Albuterol 2.5 Mg/3 Ml Vial.Neb.) 2.5 mg INHALATION Q2H PRN PRN PRN Reason: sob/wheezing Albuterol/Ipratropium (Ipratropium/Albuterol Sulfate 3 Ml Ampul.Neb) 3 ml INHALATION Q4HWA.RT [facility] [place] Last Admin: 12/18/19 19:30 Dose: 3 ml Documented by: Allopurinol (Allopurinol 100 Mg Tablet) 100 mg PO DAILY [facility] [place] Last Admin: 12/19/19 09:26 Dose: 100 mg Documented by: Azelastine HCl (Azelastine Hcl Nasal.Sry) 2 spray NASAL BID [facility] [place] Last Admin: 12/19/19 09:41 Dose: Not Given Documented by: Bisacodyl (Bisacodyl 5 Mg Tablet) 10 mg PO DAILY PRN PRN PRN Reason: Constipation Last Admin: 12/15/19 23:35 Dose: 10 mg Documented by: Budesonide (Budesonide Respules 0.5 Mg/2 Ml Ampul.Neb.) 0.5 mg INHALATION Q12H.RT [facility] [place] Last Admin: 12/18/19 19:30 Dose: 0.5 mg Documented by: Flecainide Acetate (Flecainide 100 Mg Tablet) 50 mg PO BID [facility] [place] Last Admin: 12/19/19 09:26 Dose: 50 mg Documented by: Furosemide (Furosemide 40 Mg Tablet) 40 mg PO DAILY [facility] [place] Guaifenesin (Guaifenesin 1,200 Mg Tablet) 1,200 mg PO BID [facility] [place] Last Admin: 12/19/19 09:26 Dose: 1,200 mg Documented by: Heparin Sodium (Porcine) (Heparin Injection (Vial) 5,000 Unit/Ml Vial) 0 unit IV UD PRN; Protocol PRN Reason: dose adjustment Sodium Chloride () 250 mls @ 15 mls/hr IV .[id number] PRN PRN Reason: Saline Flush Last Infusion: 12/18/19 22:35 Dose: 0 mls/hr Documented by: Sodium Chloride () 250 mls @ 15 mls/hr IV .[id number] PRN PRN Reason: Additional IVPB Infusion Vancomycin IV Pharmacy to Dose (1 ea/ Sodium Chloride) 500 mls @ 250 mls/hr IV PRN PRN; Protocol PRN Reason: Rx to Dose Cefepime HCl 2 gm/ Sodium (Chloride) 100 mls @ 200 mls/hr IV Q12 [facility] [place] Last Infusion: 12/19/19 10:05 Dose: Infused Documented by: Heparin Sodium/Dextrose () 25,000 units in 250 mls @ 15 mls/hr IV .[id number] [facility] [place]; Protocol Lactobacillus Acidophilus (Lactobacillus Acidophilus) 1 tablet PO TID [facility] [place] Last Admin: 12/19/19 15:26 Dose: 1 tablet Documented by: Levothyroxine Sodium (Levothyroxine 25 Mcg Tablet) 25 mcg PO DAILY@0600 [facility] [place] Last Admin: 12/19/19 05:30 Dose: 25 mcg Documented by: Lidocaine (Lidocaine 5% Patch) 2 patch TOPICAL DAILY [facility] [place]; Protocol Last Admin: 12/19/19 09:28 Dose: 1 patch Documented by: Montelukast Sodium (Montelukast 10 Mg Tablet) 10 mg PO QHS [facility] [place] Last Admin: 12/18/19 21:26 Dose: 10 mg Documented by: Ondansetron HCl (Ondansetron 4 Mg/2 Ml Vial) 4 mg IV Q8H PRN PRN PRN Reason: NAUSEA/VOMITING Oxycodone HCl (Oxycodone 5 Mg Tablet) 5 mg PO Q6H PRN PRN PRN Reason: Pain Score 4-10 Pantoprazole Sodium (Pantoprazole Sodium 40 Mg Tablet) 40 mg PO BID [facility] [place] Last Admin: 12/19/19 09:26 Dose: 40 mg Documented by: Prochlorperazine Edisylate (Prochlorperazine 10 Mg/2 Ml Vial) 10 mg IV Q6H PRN PRN PRN Reason: Nausea/Vomiting Last Admin: 12/11/19 00:21 Dose: 10 mg Documented by: Senna/Docusate Sodium (Senna/Docusate Sodium 1 Tablet) 2 tablet PO BID PRN PRN PRN Reason: Constipation Last Admin: 12/13/19 22:09 Dose: 1 tablet Documented by: Sodium Chloride (0.9% Saline Lock 10 Ml Syringe) 10 - 40 ml IV UD PRN PRN Reason: SALINE FLUSH Last Admin: 12/19/19 11:30 Dose: 10 ml Documented by: Medical Necessity - Tobacco Use Smoking Status: Former smoker Route of nutrition/ use of supplements: [] Nutritional Intake: [] IV Site: [] Liz Catheter: [] - Assessment/Plan Antibiotics: [] Assessment/Plan: [] Active and Suspected Problems (Last Reviewed 12/09/19 @ 04:[address] Lul Mazariegos MD) COPD with acute exacerbation (Acute) Septic shock (Acute) Septic shock (Acute) Shortness of breath (Acute) Asthma (Acute) ALEXYS (acute kidney injury) (Acute) Sputum again with staph and pseudomonas. Cont vanc and cefepime. Overall much improved and out of icu. Still high fever intermittently. ALEXYS improved. Covid neg. CXR now with worsening effusion. Tap unsuccessful. Will check cdiff due to diarrhea. Will follow
[2019-12-19] MEDS: Ipratropium/Albuterol Sulfate 3 ML AMPUL.NEB INHALATION (19:26)
[2019-12-19] MEDS: Budesonide Respules 0.5 MG/2 ML AMPUL.NEB. INHALATION (19:26)
[2019-12-19] MEDS: Montelukast 10 MG Tablet PO (21:08)
[2019-12-19] MEDS: HEPARIN/D5w 25,000 UNITS 25,000 UNITS/250 ML IV.SOLN. 15 UNITS IV (22:24)
[2019-12-20] VITALS (14 sets, daily range): BP systolic 137–147; BP diastolic 62–78; PULSE 81–107; RESP 16–20; TEMP 37–37.4; O2SAT 87–98
[2019-12-20 04:59] LABS: Absolute Lymphocyte Count 0.93 X10^3/uL (0.83-4.51); Absolute Neutrophil Count 7.9 X10^3/uL (2.0-7.7); Basophil# 0.03 X10^3/uL; Basophil% 0.3 % (0-1); Eosinophil# 0.16 X10^3/uL; Eosinophils% 1.6 % (0-5); Hematocrit 28.9 % (37-47); Hemoglobin 8.9 g/dL (12.0-15.0); Lymphocyte # 0.93 X10^3/ul (4.0); Lymphocyte % 9.3 % (19-41); Mean Corp Hgb Conc 30.8 g/dL (32-36); Mean Corpuscular Hgb 28.8 pg (27.0-32.0); Mean Corpuscular Volume 93.5 fL (81-99); Mean Platelet Vol. 9.7 fl (6.2-12.0); Monocyte# 0.87 X10^3/uL; Monocyte% 8.7 % (0-10); NRBC Flagged by Analyzer 0 % (0-5); Neutrophil # 7.89 X10^3/uL (2.7-7.7); Neutrophil % 78.6 % (47-70); POSITIVE MORPHOLOGY YES; Platelet Count 421 K/mm3 (150-450); RBC Distribution Width CV 15.9 % (11.6-14.6); RBC Distribution Width SD 54.5 fl (35.1-43.9); Red Blood Count 3.09 M/mm3 (4.2-5.4)
[2019-12-20 05:14] LABS: Anion Gap 8 (5-15); BUN 39 mg/dL (7-18); BUN/Creat Ratio 16.5 RATIO (10-20); Calcium,Total 9.1 mg/dL (8.5-10.1); Chloride 113 mmol/L (98-107); Creatinine, Serum 2.36 mg/dL (0.55-1.02); EST Glomerular Filtration Rate 22 mL/min (>60); Est Glom Filt Rate - Afr Amer 27 mL/min (>60); Estimated Creatinine Clearance 17.93 ml/min; Glucose 100 mg/dL (74-106); Potassium 3.4 mmol/L (3.5-5.1); Sodium Level 140 mmol/L (136-145)
[2019-12-20] MEDS: Levothyroxine 25 MCG TABLET PO (05:40)
[2019-12-20 05:45] LABS: Differential Indicated SCAN CRITERIA MET
[2019-12-20 05:54] LABS: Differential Comment SCANNED
[2019-12-20] MEDS: Budesonide Respules 0.5 MG/2 ML AMPUL.NEB. INHALATION (07:15)
[2019-12-20] MEDS: Ipratropium/Albuterol Sulfate 3 ML AMPUL.NEB INHALATION ×3 (07:15→14:43)
[2019-12-20] MEDS: Lidocaine 5% Patch 2 PATCH TOPICAL (09:43)
[2019-12-20] MEDS: Flecainide 100 MG Tablet 50 MG PO (09:44)
[2019-12-20] MEDS: Allopurinol 100 MG Tablet PO (09:45)
[2019-12-20] MEDS: Pantoprazole Sodium 40 MG Tablet PO (09:45)
[2019-12-20] MEDS: Azelastine HCl NASAL.SRY 2 SPRAY NASAL (09:45)
[2019-12-20] MEDS: guaiFENesin 1,200 MG Tablet 1200 MG PO (09:45)
[2019-12-20] MEDS: Furosemide 40 MG Tablet PO (09:45)
[2019-12-20 11:52] LABS: Partial Thromboplast Time 64.1 Seconds (24.1-36.2)
--- NOTE | 2019-12-20 11:52 | DCINST_ITS ---
- Discharge Diagnoses Current Active Problems: Current Active and Chronic Problems (Last Reviewed 12/09/19 @ 04:[address] 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) Lung nodule (Chronic) Abnormal chest CT (Chronic) Shortness of breath (Acute) Cavitary lesion of lung (Chronic) Obesity (Chronic) Chronic respiratory failure (Chronic) Asthma (Acute) Benign essential HTN (Chronic) COLD (chronic obstructive lung disease) (Chronic) Gastroesophageal reflux disease (Chronic) Umbilical hernia (Chronic) Hx pulmonary embolism (Chronic) Morbid obesity (Chronic) Atrial tachycardia (Chronic) PVD (peripheral vascular disease) (Chronic) HTN (hypertension) (Chronic) ALEXYS (acute kidney injury) (Acute) Steroid myopathy (Chronic) Insomnia (Chronic) Allergic rhinitis (Chronic) Pulmonary embolism (Chronic) DVT (deep venous thrombosis) (Chronic) Diabetes mellitus (Chronic) Hyperlipidemia (Chronic) Venous thromboembolism (VTE) (Chronic) Obstructive sleep apnea (Chronic) You will use the following diet at home:: Cardiac Discharge Activity: Return to Normal Activity Call your doctor if you observe: Fever of 101 or Higher, Shortness of breath, Dizziness, Fainting spells, Chest pain Allergies/Adverse Reactions: Allergies adhesive Allergy (Verified 10/19/19 10:46) Other SKIN TEARS. PAPER TAPE OK azithromycin [From Zithromax] Allergy (Verified 10/19/19 10:46) Rash cefuroxime sodium [From Zinacef] Allergy (Verified 10/19/19 10:46) Rash clindamycin Allergy (Verified 10/19/19 10:46) Hives nitrofurantoin macrocrystalline [From Macrodantin] Allergy (Verified 10/19/19 10:46) Rash Sulfa (Sulfonamide Antibiotics) Allergy (Verified 10/19/19 10:46) Rash atenolol Adverse Reaction (Severe, Verified 10/19/19 10:46) Peripheal edema & cough metoprolol [From Toprol XL] Adverse Reaction (Severe, Verified 10/19/19 10:46) Peripheral edema & cough duloxetine [From Cymbalta] Adverse Reaction (Intermediate, Verified 10/19/19 10:46) made me feel really sick oxycodone HCl [From Percocet] Adverse Reaction (Verified 10/19/19 10:46) Vomiting STEROID Adverse Reaction (Uncoded 10/19/19 10:46) Other INDUCED MYOPATHY Medications to take at Discharge Levothyroxine [Synthroid] 25 mcg PO DAILY@0600 02/15/18 montelukast 10 mg tablet 10 mg PO QHS #30 tab 02/27/18 lisinopril 5 mg tablet 5 mg PO DAILY 07/13/18 apixaban 5 mg tablet 5 mg PO BID #60 tab 03/06/19 diltiazem HCl 180 mg capsule,extended release 24 hr 180 mg PO DAILY #30 cap 03/06/19 flecainide 50 mg tablet 50 mg PO BID #60 tab 03/06/19 albuterol sulfate 2.5 mg INHALATION Q4H PRN #180 vial 04/20/19 azelastine 137 mcg (0.1 %) nasal spray aerosol 2 spray INTRANASAL BID #30 ml 10/19/19 cholecalciferol (vitamin D3) 10 mcg/drop (400 unit/drop) oral drops 10 mcg PO DAILY 10/19/19 omega-3 fatty acids 1,000 mg capsule 1,000 mg PO DAILY 10/19/19 albuterol sulfate 90 mcg/actuation aerosol inhaler 2 puff INHALATION Q4H PRN PRN #1 ea 11/16/19 Allopurinol [Zyloprim] 100 mg PO DAILY 12/09/19 Fluticasone/Salmeterol [Advair Hfa 230-21 Mcg Inhaler] 2 puff INHALATION BID 12/09/19 Doxycycline 100 mg PO BID #14 cap 12/20/19 Ferrous Sulfate [Iron] 325 mg PO BID #60 tab 12/20/19 Furosemide [Lasix] 40 mg PO BID #0 12/20/19 Lactobacillus Acidophilus [Acidophilus] 1 tab PO TID #90 tab 12/20/19 Pantoprazole Sodium [Protonix] 40 mg PO BID #60 tab 12/20/19 Polymyxin B Sulf/Trimethoprim [Polytrim Eye Drops] 1 drp OP 4X/DAY #1 bottle 12/20/19 Potassium Chloride [K-Dur] 20 meq PO DAILY #30 tab 12/20/19 levoFLOXacin tablet [Levaquin tablet] 500 mg PO DAILY #4 tab 12/20/19 The following prescriptions were given: Lactobacillus Acidophilus [Acidophilus] 1 tab PO TID #90 tab Transmission Status: Received by [facility] [id number] Doxycycline 100 mg PO BID #14 cap Transmission Status: Received by [facility] [id number] Ferrous Sulfate [Iron] 325 mg PO BID #60 tab Transmission Status: Pending to [facility] Potassium Chloride [K-Dur] 20 meq PO DAILY #30 tab Transmission Status: Pending to [facility] levoFLOXacin tablet [Levaquin tablet] 500 mg PO DAILY #4 tab Transmission Status: Received by [facility] [id number] Polymyxin B Sulf/Trimethoprim [Polytrim Eye Drops] 1 drp OP 4X/DAY #1 bottle Transmission Status: Sent to [facility] Pantoprazole Sodium [Protonix] 40 mg PO BID #60 tab Transmission Status: Received by [place] [id number] Primary Care Physician: Ervin Donnelly MD [Primary Care Provider] - Please follow up with your Primary Care Physician in: 1 Week Test Results: Test results from this visit will be discussed in further detail at your follow- up appointment, if applicable. Please Follow Up With: Marie Langley NP, [facility] When: 2 Weeks Please Follow Up With: Dami Aragon MD When: 2 Weeks Proposed Discharge Date: 12/20/19
--- NOTE | 2019-12-20 12:05 | PN.ID_ITS ---
Patient Problems: Active and Suspected Problems (Last Reviewed 12/09/19 @ 04:[address] Llu Mazariegos MD) COPD with acute exacerbation (Acute) Septic shock (Acute) Septic shock (Acute) Shortness of breath (Acute) Asthma (Acute) ALEXYS (acute kidney injury) (Acute) Subjective: Still some diarrhea, no fever, breathing better - Physical Exam Vitals/I&O's: Vital Signs Temp Pulse Resp BP Pulse Ox 99.3 F H 81 18 140/69 H 95 12/20/19 10:01 12/20/19 11:09 12/20/19 11:09 12/20/19 10:01 12/20/19 10:47 Oxygen Flow Rate (L/min) [ 2 AMBULATION with Oxygen] Oxygen Flow Rate (L/min) 1 Oxygen Delivery Method Room Air Weight: 107.9 kg Body Mass Index (BMI) 45.8 Intake and Output for Last 24 Hours 12/18/19 12/19/19 12/20/19 23:59 23:59 23:59 Intake Total 1107.25 / 1107.25 1100 / 1100 582.75 / 582.75 Balance 1107.25 / 1107.25 1100 / 1100 582.75 / 582.75 General: Alert, Cooperative, No apparent distress Lungs: Clear to auscultation, Normal air movement Cardiovascular: Regular rate, Regular Rhythm Abdomen: Soft, Non Tender, Non-Distended Skin: No rashes Microbiology Past 72 Hours 12/19/19 10:45 Stool C. difficile DNA Amplification - Final 12/19/19 10:45 Stool Stool Occult Blood (DALILA) - Final Occult Blood Positive Laboratory Results 12/12/19 08:20: Crossmatch See Detail 12/18/19 15:15: Fluid pH Cancelled 12/19/19 07:15: Iron 24 L, TIBC 168 L, Iron Saturation 14.3 L 12/19/19 12:17: Blood Type A POSITIVE, Antibody Screen NEGATIVE, Crossmatch See Detail 12/19/19 15:21: Random Vancomycin 23.7 H 12/20/19 04:46: WBC 10.0, RBC 3.09 L, Hgb 8.9 L, Hct 28.9 L, MCV 93.5, MCH 28.8, MCHC 30.8 L, RDW Std Deviation 54.5 H, RDW Coeff of Lanre 15.9 H, Plt Count 421, MPV 9.7, Immature Gran % (Auto) 1.500 H, Neut % (Auto) 78.6 H, Lymph % (Auto) 9.3 L, [place] % (Auto) 8.7, Eos % (Auto) 1.6, Baso % (Auto) 0.3, Absolute Neuts (auto) 7.9 H, Absolute Lymphs (auto) 0.93, Nucleated RBC % 0, Differential Comment SCANNED 12/20/19 04:46: Sodium 140, Potassium 3.4 L, Chloride 113 H, Carbon Dioxide 19.0 L, Anion Gap 8, BUN 39 H, Creatinine 2.36 H, Estim Creat Clear Calc 17.93, Est GFR (MDRD) Af Amer 27 L, Est GFR (MDRD) Non-Af 22 L, BUN/Creatinine Ratio 16.5, Glucose 100, Calcium 9.1 12/20/19 04:46: APTT 83.0 H 12/20/19 11:37: APTT 64.1 H Current Medications Acetaminophen (Acetaminophen 325 Mg Tablet) 650 mg PO Q4H PRN PRN PRN Reason: TEMP > 100 Last Admin: 12/19/19 15:26 Dose: 650 mg Documented by: Al Hydroxide/Mg Hydroxide (Mag Hydrox/Al Hydrox/Simeth 30 Ml Udc) 30 ml PO Q6H PRN PRN PRN Reason: Gastric Burning Albuterol Sulfate (Albuterol 2.5 Mg/3 Ml Vial.Neb.) 2.5 mg INHALATION Q2H PRN PRN PRN Reason: sob/wheezing Albuterol/Ipratropium (Ipratropium/Albuterol Sulfate 3 Ml Ampul.Neb) 3 ml INHALATION Q4HWA.RT [facility] Last Admin: 12/20/19 10:52 Dose: 3 ml Documented by: Allopurinol (Allopurinol 100 Mg Tablet) 100 mg PO DAILY [facility] Last Admin: 12/20/19 09:45 Dose: 100 mg Documented by: Azelastine HCl (Azelastine Hcl Nasal.Sry) 2 spray NASAL BID [facility] Last Admin: 12/20/19 09:45 Dose: 2 spray Documented by: Bisacodyl (Bisacodyl 5 Mg Tablet) 10 mg PO DAILY PRN PRN PRN Reason: Constipation Last Admin: 12/15/19 23:35 Dose: 10 mg Documented by: Budesonide (Budesonide Respules 0.5 Mg/2 Ml Ampul.Neb.) 0.5 mg INHALATION Q12H.RT [facility] Last Admin: 12/20/19 07:15 Dose: 0.5 mg Documented by: Flecainide Acetate (Flecainide 100 Mg Tablet) 50 mg PO BID [facility] Last Admin: 12/20/19 09:44 Dose: 50 mg Documented by: Furosemide (Furosemide 40 Mg Tablet) 40 mg PO DAILY [facility] Last Admin: 12/20/19 09:45 Dose: 40 mg Documented by: Guaifenesin (Guaifenesin 1,200 Mg Tablet) 1,200 mg PO BID [facility] Last Admin: 12/20/19 09:45 Dose: 1,200 mg Documented by: Heparin Sodium (Porcine) (Heparin Injection (Vial) 5,000 Unit/Ml Vial) 0 unit IV UD PRN; Protocol PRN Reason: dose adjustment Sodium Chloride () 250 mls @ 15 mls/hr IV .[id number] PRN PRN Reason: Saline Flush Last Infusion: 12/18/19 22:35 Dose: 0 mls/hr Documented by: Sodium Chloride () 250 mls @ 15 mls/hr IV .[id number] PRN PRN Reason: Additional IVPB Infusion Vancomycin IV Pharmacy to Dose (1 ea/ Sodium Chloride) 500 mls @ 250 mls/hr IV PRN PRN; Protocol PRN Reason: Rx to Dose Heparin Sodium/Dextrose () 25,000 units in 250 mls @ 15 mls/hr IV .[id number] [facility]; Protocol Last Titration: 12/20/19 05:35 Dose: 1,400 units/hr, 14 mls/hr Documented by: Cefepime HCl 2 gm/ Sodium (Chloride) 100 mls @ 200 mls/hr IV Q24 [facility] Lactobacillus Acidophilus (Lactobacillus Acidophilus) 1 tablet PO TID [facility] Last Admin: 12/20/19 05:40 Dose: 1 tablet Documented by: Levothyroxine Sodium (Levothyroxine 25 Mcg Tablet) 25 mcg PO DAILY@0600 [facility] Last Admin: 12/20/19 05:40 Dose: 25 mcg Documented by: Lidocaine (Lidocaine 5% Patch) 2 patch TOPICAL DAILY [facility]; Protocol Last Admin: 12/20/19 09:43 Dose: 2 patch Documented by: Montelukast Sodium (Montelukast 10 Mg Tablet) 10 mg PO QHS [facility] Last Admin: 12/19/19 21:08 Dose: 10 mg Documented by: Ondansetron HCl (Ondansetron 4 Mg/2 Ml Vial) 4 mg IV Q8H PRN PRN PRN Reason: NAUSEA/VOMITING Oxycodone HCl (Oxycodone 5 Mg Tablet) 5 mg PO Q6H PRN PRN PRN Reason: Pain Score 4-10 Pantoprazole Sodium (Pantoprazole Sodium 40 Mg Tablet) 40 mg PO BID [facility] Last Admin: 12/20/19 09:45 Dose: 40 mg Documented by: Prochlorperazine Edisylate (Prochlorperazine 10 Mg/2 Ml Vial) 10 mg IV Q6H PRN PRN PRN Reason: Nausea/Vomiting Last Admin: 12/11/19 00:21 Dose: 10 mg Documented by: Senna/Docusate Sodium (Senna/Docusate Sodium 1 Tablet) 2 tablet PO BID PRN PRN PRN Reason: Constipation Last Admin: 12/13/19 22:09 Dose: 1 tablet Documented by: Sodium Chloride (0.9% Saline Lock 10 Ml Syringe) 10 - 40 ml IV UD PRN PRN Reason: SALINE FLUSH Last Admin: 12/19/19 11:30 Dose: 10 ml Documented by: Medical Necessity - Tobacco Use Smoking Status: Former smoker Route of nutrition/ use of supplements: [] Nutritional Intake: [] IV Site: [] Liz Catheter: [] - Assessment/Plan Antibiotics: [] Assessment/Plan: [] Active and Suspected Problems (Last Reviewed 12/09/19 @ 04:[address] Lul Mazariegos MD) COPD with acute exacerbation (Acute) Septic shock (Acute) Septic shock (Acute) Shortness of breath (Acute) Asthma (Acute) ALEXYS (acute kidney injury) (Acute) Sputum again with staph and pseudomonas. On vanc and cefepime. Overall much improved and out of icu. ALEXYS improved, fever resolved. Ok for d/c home on one more week of doxy and levaquin. Will follow, wrote rx, d/w primary team
--- NOTE | 2019-12-20 12:27 | CASEMGMT ---
Addendum entered by Astrid Cottrell 12/20/19 13:19: Pt does qualify for home oxygen 2liters with exertion at this time. [place] [facility] [place] and call to [facility] to notify of referral and discharge, Karen voices understanding. Pt voices no further questions/concerns/needs at this time. Nelsy MARTIN CM Original Note: Pt declines need for HHC at this time, stating she is ok getting around but does have some SOB. Pt to be tested for ambulatory oxygen and this [facility] to follow. Pt states she would like [employer], if needed. Nelsy MARTIN CM
--- NOTE | 2019-12-20 13:57 | PN_ITS ---
Patient Problems: Active and Suspected Problems (Last Reviewed 12/09/19 @ 04:[address] Lul Mazariegos MD) COPD with acute exacerbation (Acute) Septic shock (Acute) Septic shock (Acute) Shortness of breath (Acute) Asthma (Acute) ALEXYS (acute kidney injury) (Acute) Subjective: The patient was seen and examined at the bedside this morning. Events from the last 24 hours have been reviewed. The patient is currently afebrile, hemodynamically stable and maintaining appropriate oxygen saturations on room air. The patient feels relatively well this morning and is anxious to be discharged home. Thoracentesis yesterday was unsuccessful due to an inadequate pocket of fluid identified on ultrasound. Objective: The patient's most recent lab work, culture data and imaging studies have all been personally reviewed. Sputum culture dated December 08 was positive for Pseudomonas aeruginosa and MRSA. - Physical Exam Vitals/I&O's: Vital Signs Temp Pulse Resp BP Pulse Ox 99.3 F H 81 18 140/69 H 95 12/20/19 10:01 12/20/19 11:09 12/20/19 11:09 12/20/19 10:01 12/20/19 13:03 Oxygen Flow Rate (L/min) [ 2 AMBULATION with Oxygen] Oxygen Flow Rate (L/min) 1 Oxygen Delivery Method Room Air Weight: 237 lb 14.06 oz Body Mass Index (BMI) 45.8 Intake and Output for Last 24 Hours 12/18/19 12/19/19 12/20/19 23:59 23:59 23:59 Intake Total 1107.25 / 1107.25 1100 / 1100 982.75 / 982.75 Balance 1107.25 / 1107.25 1100 / 1100 982.75 / 982.75 General: Alert, Cooperative, No apparent distress HEENT: Atraumatic, Normocephalic Oral: No Gingival or Mucosal Lesions/ Ulcerations Neck: Supple, No Nodes, Trachea Midline Lungs: No rhonchi, No wheeze, No rales, Diminished Cardiovascular: Regular rate, Regular Rhythm Abdomen: Bowel Sounds Present, Soft, Non Tender, Obese Extremities: No clubbing, No cyanosis, Edema Skin: No breakdown Musculoskeletal: No Tenderness to Palpation of Joints or Extremities Lymphatic: No Cervical, Supraclavicular, or Inguinal Adenopathy Neurological: Cranial nerves II-XII grossly intact, Neuro grossly intact Psych/Mental Status: Flat Affect Labs (Last 48 Hours) 12/12/19 12/18/19 12/18/19 08:20 15:15 15:15 WBC RBC Hgb Hct MCV MCH MCHC RDW Std Deviation RDW Coeff of Lanre Plt Count MPV Immature Gran % (Auto) Neut % (Auto) Lymph % (Auto) [place] % (Auto) Eos % (Auto) Baso % (Auto) Absolute Neuts (auto) Absolute Lymphs (auto) Nucleated RBC % Differential Comment Atypical Lymphocytes Hypochromasia Macrocytosis PT INR APTT Sodium Potassium Chloride Carbon Dioxide Anion Gap BUN Creatinine Estim Creat Clear Calc Est GFR (MDRD) Af Amer Est GFR (MDRD) Non-Af BUN/Creatinine Ratio Glucose Calcium Iron TIBC Iron Saturation Lactate Dehydrogenase 277 H Total Protein 7.6 Globulin 5.8 H Albumin/Globulin Ratio 0.3 L Fluid pH Fluid Glucose Fluid Total Protein Fluid LDH Random Vancomycin 28.3 H Blood Type Antibody Screen Crossmatch See Detail 12/18/19 12/18/19 12/19/19 15:15 15:15 07:15 WBC 11.8 H RBC 2.86 L Hgb 8.2 L Hct 27.2 L MCV 95.1 MCH 28.7 MCHC 30.1 L D RDW Std Deviation 58.4 H RDW Coeff of Lanre 16.5 H Plt Count 461 H MPV 9.9 Immature Gran % (Auto) 2.400 H Neut % (Auto) 78.2 H Lymph % (Auto) 9.6 L [place] % (Auto) 8.0 Eos % (Auto) 1.4 Baso % (Auto) 0.4 Absolute Neuts (auto) 9.2 H Absolute Lymphs (auto) 1.13 Nucleated RBC % 0 Differential Comment SCANNED Atypical Lymphocytes RARE Hypochromasia 2+ Macrocytosis 1+ PT INR APTT Sodium Potassium Chloride Carbon Dioxide Anion Gap BUN Creatinine Estim Creat Clear Calc Est GFR (MDRD) Af Amer Est GFR (MDRD) Non-Af BUN/Creatinine Ratio Glucose Calcium Iron TIBC Iron Saturation Lactate Dehydrogenase Total Protein Globulin Albumin/Globulin Ratio Fluid pH Cancelled Fluid Glucose 76 H Fluid Total Protein 7.0 Fluid LDH 239 Random Vancomycin Blood Type Antibody Screen Crossmatch 12/19/19 12/19/19 12/19/19 07:15 07:15 07:15 WBC RBC Hgb Hct MCV MCH MCHC RDW Std Deviation RDW Coeff of Lanre Plt Count MPV Immature Gran % (Auto) Neut % (Auto) Lymph % (Auto) [place] % (Auto) Eos % (Auto) Baso % (Auto) Absolute Neuts (auto) Absolute Lymphs (auto) Nucleated RBC % Differential Comment Atypical Lymphocytes Hypochromasia Macrocytosis PT 16.5 H INR 1.4 APTT 41.4 H Sodium 138 Potassium 3.5 Chloride 111 H Carbon Dioxide 18.0 L Anion Gap 9 BUN 38 H Creatinine 2.31 H Estim Creat Clear Calc 18.32 Est GFR (MDRD) Af Amer 27 L Est GFR (MDRD) Non-Af 22 L BUN/Creatinine Ratio 16.5 Glucose 87 Calcium 9.2 Iron 24 L TIBC 168 L Iron Saturation 14.3 L Lactate Dehydrogenase 249 H Total Protein 7.4 Globulin 5.8 H Albumin/Globulin Ratio 0.3 L Fluid pH Fluid Glucose Fluid Total Protein Fluid LDH Random Vancomycin Blood Type Antibody Screen Crossmatch 12/19/19 12/19/19 12/20/19 12:17 15:21 04:46 WBC 10.0 RBC 3.09 L Hgb 8.9 L Hct 28.9 L MCV 93.5 MCH 28.8 MCHC 30.8 L RDW Std Deviation 54.5 H RDW Coeff of Lanre 15.9 H Plt Count 421 MPV 9.7 Immature Gran % (Auto) 1.500 H Neut % (Auto) 78.6 H Lymph % (Auto) 9.3 L [place] % (Auto) 8.7 Eos % (Auto) 1.6 Baso % (Auto) 0.3 Absolute Neuts (auto) 7.9 H Absolute Lymphs (auto) 0.93 Nucleated RBC % 0 Differential Comment SCANNED Atypical Lymphocytes Hypochromasia Macrocytosis PT INR APTT Sodium Potassium Chloride Carbon Dioxide Anion Gap BUN Creatinine Estim Creat Clear Calc Est GFR (MDRD) Af Amer Est GFR (MDRD) Non-Af BUN/Creatinine Ratio Glucose Calcium Iron TIBC Iron Saturation Lactate Dehydrogenase Total Protein Globulin Albumin/Globulin Ratio Fluid pH Fluid Glucose Fluid Total Protein Fluid LDH Random Vancomycin 23.7 H Blood Type A POSITIVE Antibody Screen NEGATIVE Crossmatch See Detail 12/20/19 12/20/19 12/20/19 04:46 04:46 11:37 WBC RBC Hgb Hct MCV MCH MCHC RDW Std Deviation RDW Coeff of Lanre Plt Count MPV Immature Gran % (Auto) Neut % (Auto) Lymph % (Auto) [place] % (Auto) Eos % (Auto) Baso % (Auto) Absolute Neuts (auto) Absolute Lymphs (auto) Nucleated RBC % Differential Comment Atypical Lymphocytes Hypochromasia Macrocytosis PT INR APTT 83.0 H 64.1 H Sodium 140 Potassium 3.4 L Chloride 113 H Carbon Dioxide 19.0 L Anion Gap 8 BUN 39 H Creatinine 2.36 H Estim Creat Clear Calc 17.93 Est GFR (MDRD) Af Amer 27 L Est GFR (MDRD) Non-Af 22 L BUN/Creatinine Ratio 16.5 Glucose 100 Calcium 9.1 Iron TIBC Iron Saturation Lactate Dehydrogenase Total Protein Globulin Albumin/Globulin Ratio Fluid pH Fluid Glucose Fluid Total Protein Fluid LDH Random Vancomycin Blood Type Antibody Screen Crossmatch Microbiology 12/19/19 10:45 Stool C. difficile DNA Amplification - Final 12/19/19 10:45 Stool Stool Occult Blood (DALILA) - Final Occult Blood Positive Clinical Impression(s) from Imaging Studies Chest X-Ray 12/08/19 22:37 IMPRESSION: Stable right upper lobe lung nodule. Chronic changes in the lung bases. No evidence for acute cardiopulmonary pathology. Electronically Signed: Archie Bowers MD at 0:22 EDT , Service support , Chest X-Ray 12/09/19 05:06 IMPRESSION: Central line is in adequate position. Chronic changes in the lower lung manzano. No evidence for acute cardiopulmonary pathology. Electronically Signed: Archie Bowers MD at 7:03 EDT , Service support , Chest CT 12/09/19 09:24 IMPRESSION: 1. Dense right lower lobe pneumonia. Follow-up CT is recommended after resolution of symptoms to exclude mass, namely bronchogenic carcinoma 2. 4 mm noncalcified right upper lobe nodule and follow-up CT is recommended in 12 months document stability. Electronically Signed: Johnny Mo MD at 10:49 EDT Tel , Service support , Chest CT 12/13/19 09:39 IMPRESSION: Progressive infiltration in the right lower lobe as well as right pleural effusion. Minimal thickening of the left pleura with the mild left basilar atelectasis. Stable noncalcified bilateral pulmonary nodules. Electronically Signed: Lance Back, at 10:40 EDT , Service support , Chest X-Ray 12/18/19 05:55 IMPRESSION: Interval large opacification of the right lower lobe which is suspicious for large right effusion with atelectasis. Left lower lobe atelectasis and/or effusion. Electronically Signed: Anita Thao MD at 6:35 EST Tel , Service support , Chest Ultrasound 12/19/19 08:00 IMPRESSION: Small bilateral pleural effusions not enough for a safe thoracentesis. Electronically Signed: Lance Back, at 15:38 EST , Service support , Current Medications Acetaminophen (Acetaminophen 325 Mg Tablet) 650 mg PO Q4H PRN PRN PRN Reason: TEMP > 100 Last Admin: 12/19/19 15:26 Dose: 650 mg Documented by: Al Hydroxide/Mg Hydroxide (Mag Hydrox/Al Hydrox/Simeth 30 Ml Udc) 30 ml PO Q6H PRN PRN PRN Reason: Gastric Burning Albuterol Sulfate (Albuterol 2.5 Mg/3 Ml Vial.Neb.) 2.5 mg INHALATION Q2H PRN PRN PRN Reason: sob/wheezing Albuterol/Ipratropium (Ipratropium/Albuterol Sulfate 3 Ml Ampul.Neb) 3 ml INHALATION Q4HWA.RT MIHAI Last Admin: 12/20/19 10:52 Dose: 3 ml Documented by: Allopurinol (Allopurinol 100 Mg Tablet) 100 mg PO DAILY [facility] Last Admin: 12/20/19 09:45 Dose: 100 mg Documented by: Azelastine HCl (Azelastine Hcl Nasal.Sry) 2 spray NASAL BID [facility] Last Admin: 12/20/19 09:45 Dose: 2 spray Documented by: Bisacodyl (Bisacodyl 5 Mg Tablet) 10 mg PO DAILY PRN PRN PRN Reason: Constipation Last Admin: 12/15/19 23:35 Dose: 10 mg Documented by: Budesonide (Budesonide Respules 0.5 Mg/2 Ml Ampul.Neb.) 0.5 mg INHALATION Q12H.RT [facility] Last Admin: 12/20/19 07:15 Dose: 0.5 mg Documented by: Flecainide Acetate (Flecainide 100 Mg Tablet) 50 mg PO BID [facility] Last Admin: 12/20/19 09:44 Dose: 50 mg Documented by: Furosemide (Furosemide 40 Mg Tablet) 40 mg PO DAILY [facility] Last Admin: 12/20/19 09:45 Dose: 40 mg Documented by: Guaifenesin (Guaifenesin 1,200 Mg Tablet) 1,200 mg PO BID [facility] Last Admin: 12/20/19 09:45 Dose: 1,200 mg Documented by: Heparin Sodium (Porcine) (Heparin Injection (Vial) 5,000 Unit/Ml Vial) 0 unit IV UD PRN; Protocol PRN Reason: dose adjustment Sodium Chloride () 250 mls @ 15 mls/hr IV .[id number] PRN PRN Reason: Saline Flush Last Infusion: 12/18/19 22:35 Dose: 0 mls/hr Documented by: Sodium Chloride () 250 mls @ 15 mls/hr IV .[id number] PRN PRN Reason: Additional IVPB Infusion Vancomycin IV Pharmacy to Dose (1 ea/ Sodium Chloride) 500 mls @ 250 mls/hr IV PRN PRN; Protocol PRN Reason: Rx to Dose Heparin Sodium/Dextrose () 25,000 units in 250 mls @ 15 mls/hr IV .[id number] [facility]; Protocol Last Titration: 12/20/19 05:35 Dose: 1,400 units/hr, 14 mls/hr Documented by: Cefepime HCl 2 gm/ Sodium (Chloride) 100 mls @ 200 mls/hr IV Q24 [facility] Lactobacillus Acidophilus (Lactobacillus Acidophilus) 1 tablet PO TID [facility] Last Admin: 12/20/19 13:37 Dose: 1 tablet Documented by: Levothyroxine Sodium (Levothyroxine 25 Mcg Tablet) 25 mcg PO DAILY@0600 [facility] Last Admin: 12/20/19 05:40 Dose: 25 mcg Documented by: Lidocaine (Lidocaine 5% Patch) 2 patch TOPICAL DAILY [facility]; Protocol Last Admin: 12/20/19 09:43 Dose: 2 patch Documented by: Montelukast Sodium (Montelukast 10 Mg Tablet) 10 mg PO QHS [facility] Last Admin: 12/19/19 21:08 Dose: 10 mg Documented by: Ondansetron HCl (Ondansetron 4 Mg/2 Ml Vial) 4 mg IV Q8H PRN PRN PRN Reason: NAUSEA/VOMITING Oxycodone HCl (Oxycodone 5 Mg Tablet) 5 mg PO Q6H PRN PRN PRN Reason: Pain Score 4-10 Pantoprazole Sodium (Pantoprazole Sodium 40 Mg Tablet) 40 mg PO BID [facility] Last Admin: 12/20/19 09:45 Dose: 40 mg Documented by: Prochlorperazine Edisylate (Prochlorperazine 10 Mg/2 Ml Vial) 10 mg IV Q6H PRN PRN PRN Reason: Nausea/Vomiting Last Admin: 12/11/19 00:21 Dose: 10 mg Documented by: Senna/Docusate Sodium (Senna/Docusate Sodium 1 Tablet) 2 tablet PO BID PRN PRN PRN Reason: Constipation Last Admin: 12/13/19 22:09 Dose: 1 tablet Documented by: Sodium Chloride (0.9% Saline Lock 10 Ml Syringe) 10 - 40 ml IV UD PRN PRN Reason: SALINE FLUSH Last Admin: 12/19/19 11:30 Dose: 10 ml Documented by: Medical Necessity - Tobacco Use Smoking Status: Former smoker Assessment/Plan All Active Problems (Last Reviewed 12/09/19 @ 04:[address] Lul Mazariegos MD) COPD with acute exacerbation (Acute) Septic shock (Acute) Septic shock (Acute) Shortness of breath (Acute) Asthma (Acute) ALEXYS (acute kidney injury) (Acute) RECOMMENDATIONS: 1. Resume Eliquis at discharge. 2. Continue antimicrobials per infectious diseases. 3. Continue aggressive bronchopulmonary hygiene. 4. Continue scheduled bronchodilator therapy and twice daily budesonide. 5. Monitor H&H daily and transfuse if hemoglobin drops below 7 g/dL. 6. BiPAP rescue as needed. 7. Continue p.o. Lasix regimen. 8. Encourage incentive spirometer use and mobilize patient as tolerated. IMPRESSIONS: 1. Septic shock secondary to right lower lobe pneumonia The patient does have underlying asthma, but carries a history of steroid induced myopathy. Therefore, she will be continued on bronchodilators and budesonide. The patient was recently treated at the beginning of November with antimicrobials for an underlying respiratory infection with sputum culture that was positive for both MRSA and Pseudomonas. Sputum is again growing similar pathogens. The patient will be continued on antimicrobials per infectious diseases recommendations. Continue aggressive bronchopulmonary hygiene. The patient remains hemodynamically stable. 2. Acute hypoxic respiratory failure secondary to #1 Patient likely has an element of obstructive sleep apnea and dense consolidation leading to decompensation. Fever curve is improving on current antibiotics. Attempting to avoid systemic steroids secondary to a history of critical care neuropathy. The patient does have a sizable pleural effusion on chest x-ray which could be related to hypervolemia as the patient is over 19 L positive for the hospitalization. However, the patient's creatinine worsened in light of more aggressive diuresis. 3. Anemia The patient does have a history of anemia and was anticoagulated on Eliquis due to a history of paroxysmal atrial fibrillation. The patient's Eliquis was transitioned to Lovenox, given anemia. Recommend continuing twice daily PPI therapy. Plan to monitor H&H daily and transfuse if hemoglobin drops below 7 g/dL. The patient can resume her Eliquis at discharge. 4. Acute kidney injury Likely prerenal in etiology. Continue to monitor urine output. No indication for renal replacement therapy. 5. History of moderate persistent asthma and steroid induced myopathy/history of organizing pneumonia Continue current supportive measures including scheduled bronchodilator therapy, twice daily budesonide and antimicrobials per infectious diseases recommendations. 6. History of lung nodules/GERD/paroxysmal atrial fibrillation/history of DVT/PE/anxiety/hypothyroidism/heart failure with preserved ejection fraction Complicates care, management, recovery and prognosis. Continue home medications as indicated. This note was generated with [employer] software. It may contain incorrect words, spelling, and punctuation that were not noted in checking the note before signing. Inpatient E&M: 27899 Subs Hosp L2
--- NOTE | 2019-12-20 14:39 | PCM.DC.SUM ---
Discharge Date and Diagnosis - Problem List Patient Problems: Active and Suspected Problems (Last Reviewed 12/09/19 @ 04:[address] Lul Mazariegos MD) COPD with acute exacerbation (Acute) Septic shock (Acute) Septic shock (Acute) Shortness of breath (Acute) Asthma (Acute) ALEXYS (acute kidney injury) (Acute) Date of Admission: 12/09/19 Date of Discharge: 12/20/19 - Primary Discharge Diagnosis Acute Problems: Active Problems (Last Reviewed 12/09/19 @ 04:[address] Lul Mazariegos MD) 1. Septic shock secondary to right lower lobe pneumonia with Pseudomonas and MRSA, complicated by underlying moderate persistent asthma 2. Acute hypoxic respiratory failure secondary to #1 3. Acute on chronic heart failure with preserved ejection fraction 4. Acute kidney injury on chronic kidney disease stage III 5. Chronic anemia with Hemoccult-positive stool 6. History of moderate persistent asthma and steroid induced myopathy 7. Paroxysmal atrial fibrillation 8. History of DVT/PE 9. Hypothyroidism 10. Hypertension 11. History of C. difficile 12. Morbid obesity 13. Suspected GAGAN - Secondary Discharge Diagnosis Chronic Problems: Chronic Problems (Last Reviewed 12/09/19 @ 04:[address] 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) Lung nodule (Chronic) Abnormal chest CT (Chronic) Cavitary lesion of lung (Chronic) Obesity (Chronic) Chronic respiratory failure (Chronic) Benign essential HTN (Chronic) COLD (chronic obstructive lung disease) (Chronic) Gastroesophageal reflux disease (Chronic) Umbilical hernia (Chronic) Hx pulmonary embolism (Chronic) Morbid obesity (Chronic) Atrial tachycardia (Chronic) PVD (peripheral vascular disease) (Chronic) HTN (hypertension) (Chronic) Steroid myopathy (Chronic) Insomnia (Chronic) Allergic rhinitis (Chronic) Pulmonary embolism (Chronic) DVT (deep venous thrombosis) (Chronic) Diabetes mellitus (Chronic) Hyperlipidemia (Chronic) Venous thromboembolism (VTE) (Chronic) Obstructive sleep apnea (Chronic) Hospital Course and Treatment Imaging Results: Diagnostic Data Chest CT 12/13/19 09:39 IMPRESSION: Progressive infiltration in the right lower lobe as well as right pleural effusion. Minimal thickening of the left pleura with the mild left basilar atelectasis. Stable noncalcified bilateral pulmonary nodules. Electronically Signed: Lance Back, at 10:40 EDT , Service support , Chest X-Ray 12/18/19 05:55 IMPRESSION: Interval large opacification of the right lower lobe which is suspicious for large right effusion with atelectasis. Left lower lobe atelectasis and/or effusion. Electronically Signed: Anita Thao MD at 6:35 EST Tel , Service support , Chest Ultrasound 12/19/19 08:00 IMPRESSION: Small bilateral pleural effusions not enough for a safe thoracentesis. Electronically Signed: Lance Back, at 15:38 EST , Service support , Dr. Orta- ID Dr. Bazzi- Pulmonary medicine Operations: None, - Procedures: None Summary of Care Provided: The patient is a 64 year old F admitted 12/09/2019 due to fever and chills. 1. Septic shock secondary to right lower lobe pneumonia with Pseudomonas and MRSA, complicated by underlying moderate persistent asthma- vanc and cefepime during admission. ID consulted. Plan for 1 more week of oral doxy and Levaquin at discharge. Follow-up with pulmonary medicine in 2 weeks. 2. Acute hypoxic respiratory failure secondary to #1-oxygen stable on room air at discharge. 3. Acute on chronic heart failure with preserved ejection fraction-echocardiogram 02/2019 demonstrates an EF of 65%, stage II diastolic dysfunction. IV Lasix during admission. Lasix 40 mg twice daily at discharge. Follow-up with cardiology in 1 to 2 weeks. 4. Acute kidney injury on chronic kidney disease stage III-stable, recommend repeat BMP as outpatient. 5. Chronic anemia with Hemoccult-positive stool-hemoglobin stable. Eliquis resumed at discharge. Recommend repeat CBC as outpatient. Instructed patient to monitor for blood in stool, dark stools. Continue twice daily PPI at discharge pending further outpatient follow-up. Initiated on iron supplementation. 6. History of moderate persistent asthma and steroid induced myopathy-continue follow-up with pulmonary medicine. 7. Paroxysmal atrial fibrillation-continue Eliquis, Cardizem, flecainide. 8. History of DVT/PE-on Eliquis. 9. Hypothyroidism-continue Synthroid regimen. 10. Hypertension-stable, continue current regimen. 11. History of C. difficile-C. difficile negative during admission. 12. Morbid obesity-encouraged to dialyze on medications. 13. Suspected GAGAN-outpatient follow-up. Patient seen and examined prior to discharge. Physical assessment as noted below. Patient is stable for discharge with follow up recommendations as noted above. This patient was seen by MAXIME Ohara under the supervision of Dr. Mitchell. Patient Problems: Active and Suspected Problems (Last Reviewed 12/09/19 @ 04:[address] Lul Mazariegos MD) COPD with acute exacerbation (Acute) Septic shock (Acute) Septic shock (Acute) Shortness of breath (Acute) Asthma (Acute) ALEXYS (acute kidney injury) (Acute) - Physical Exam Vitals/I&O's: Vital Signs Temp Pulse Resp BP Pulse Ox 99.3 F H 81 18 140/69 H 95 12/20/19 10:01 12/20/19 11:09 12/20/19 11:09 12/20/19 10:01 12/20/19 13:03 Oxygen Flow Rate (L/min) [ 2 AMBULATION with Oxygen] Oxygen Flow Rate (L/min) 1 Oxygen Delivery Method Room Air Weight: 237 lb 14.06 oz Body Mass Index (BMI) 45.8 Intake and Output for Last 24 Hours 12/18/19 12/19/19 12/20/19 23:59 23:59 23:59 Intake Total 1107.25 / 1107.25 1100 / 1100 982.75 / 982.75 Balance 1107.25 / 1107.25 1100 / 1100 982.75 / 982.75 General: Alert, Oriented x3, Cooperative HEENT: Atraumatic, PERRLA, EOMI, Normocephalic Oral: Dry Mucosa Neck: Supple, No JVD, Negative Carotid Bruits Lungs: Clear to auscultation, Diminished Cardiovascular: Regular rate, No murmurs Abdomen: Bowel Sounds Present, Soft, Non Tender, Non-Distended, Obese Extremities: No clubbing, No cyanosis, No edema Skin: No rashes, No breakdown Musculoskeletal: No Tenderness to Palpation of Joints or Extremities Neurological: Cranial nerves II-XII grossly intact, Neuro grossly intact Psych/Mental Status: Normal Affect, Appropriate Microbiology Past 72 Hours 12/19/19 10:45 Stool C. difficile DNA Amplification - Final 12/19/19 10:45 Stool Stool Occult Blood (DALILA) - Final Occult Blood Positive Laboratory Results 12/12/19 08:20: Crossmatch See Detail 12/18/19 15:15: Fluid pH Cancelled 12/19/19 12:17: Blood Type A POSITIVE, Antibody Screen NEGATIVE, Crossmatch See Detail 12/19/19 15:21: Random Vancomycin 23.7 H 12/20/19 04:46: WBC 10.0, RBC 3.09 L, Hgb 8.9 L, Hct 28.9 L, MCV 93.5, MCH 28.8, MCHC 30.8 L, RDW Std Deviation 54.5 H, RDW Coeff of Lanre 15.9 H, Plt Count 421, MPV 9.7, Immature Gran % (Auto) 1.500 H, Neut % (Auto) 78.6 H, Lymph % (Auto) 9.3 L, [place] % (Auto) 8.7, Eos % (Auto) 1.6, Baso % (Auto) 0.3, Absolute Neuts (auto) 7.9 H, Absolute Lymphs (auto) 0.93, Nucleated RBC % 0, Differential Comment SCANNED 12/20/19 04:46: Sodium 140, Potassium 3.4 L, Chloride 113 H, Carbon Dioxide 19.0 L, Anion Gap 8, BUN 39 H, Creatinine 2.36 H, Estim Creat Clear Calc 17.93, Est GFR (MDRD) Af Amer 27 L, Est GFR (MDRD) Non-Af 22 L, BUN/Creatinine Ratio 16.5, Glucose 100, Calcium 9.1 12/20/19 04:46: APTT 83.0 H 12/20/19 11:37: APTT 64.1 H Current Medications Acetaminophen (Acetaminophen 325 Mg Tablet) 650 mg PO Q4H PRN PRN PRN Reason: TEMP > 100 Last Admin: 12/19/19 15:26 Dose: 650 mg Documented by: Al Hydroxide/Mg Hydroxide (Mag Hydrox/Al Hydrox/Simeth 30 Ml Udc) 30 ml PO Q6H PRN PRN PRN Reason: Gastric Burning Albuterol Sulfate (Albuterol 2.5 Mg/3 Ml Vial.Neb.) 2.5 mg INHALATION Q2H PRN PRN PRN Reason: sob/wheezing Albuterol/Ipratropium (Ipratropium/Albuterol Sulfate 3 Ml Ampul.Neb) 3 ml INHALATION Q4HWA.RT [facility] Last Admin: 12/20/19 10:52 Dose: 3 ml Documented by: Allopurinol (Allopurinol 100 Mg Tablet) 100 mg PO DAILY [facility] Last Admin: 12/20/19 09:45 Dose: 100 mg Documented by: Azelastine HCl (Azelastine Hcl Nasal.Sry) 2 spray NASAL BID [facility] Last Admin: 12/20/19 09:45 Dose: 2 spray Documented by: Bisacodyl (Bisacodyl 5 Mg Tablet) 10 mg PO DAILY PRN PRN PRN Reason: Constipation Last Admin: 12/15/19 23:35 Dose: 10 mg Documented by: Budesonide (Budesonide Respules 0.5 Mg/2 Ml Ampul.Neb.) 0.5 mg INHALATION Q12H.RT [facility] Last Admin: 12/20/19 07:15 Dose: 0.5 mg Documented by: Flecainide Acetate (Flecainide 100 Mg Tablet) 50 mg PO BID [facility] Last Admin: 12/20/19 09:44 Dose: 50 mg Documented by: Furosemide (Furosemide 40 Mg Tablet) 40 mg PO DAILY [facility] Last Admin: 12/20/19 09:45 Dose: 40 mg Documented by: Guaifenesin (Guaifenesin 1,200 Mg Tablet) 1,200 mg PO BID [facility] Last Admin: 12/20/19 09:45 Dose: 1,200 mg Documented by: Heparin Sodium (Porcine) (Heparin Injection (Vial) 5,000 Unit/Ml Vial) 0 unit IV UD PRN; Protocol PRN Reason: dose adjustment Sodium Chloride () 250 mls @ 15 mls/hr IV .[id number] PRN PRN Reason: Saline Flush Last Infusion: 12/18/19 22:35 Dose: 0 mls/hr Documented by: Sodium Chloride () 250 mls @ 15 mls/hr IV .[id number] PRN PRN Reason: Additional IVPB Infusion Vancomycin IV Pharmacy to Dose (1 ea/ Sodium Chloride) 500 mls @ 250 mls/hr IV PRN PRN; Protocol PRN Reason: Rx to Dose Heparin Sodium/Dextrose () 25,000 units in 250 mls @ 15 mls/hr IV .[id number] [facility]; Protocol Last Titration: 12/20/19 05:35 Dose: 1,400 units/hr, 14 mls/hr Documented by: Cefepime HCl 2 gm/ Sodium (Chloride) 100 mls @ 200 mls/hr IV Q24 [facility] Lactobacillus Acidophilus (Lactobacillus Acidophilus) 1 tablet PO TID [facility] Last Admin: 12/20/19 13:37 Dose: 1 tablet Documented by: Levothyroxine Sodium (Levothyroxine 25 Mcg Tablet) 25 mcg PO DAILY@0600 [facility] Last Admin: 12/20/19 05:40 Dose: 25 mcg Documented by: Lidocaine (Lidocaine 5% Patch) 2 patch TOPICAL DAILY [facility]; Protocol Last Admin: 12/20/19 09:43 Dose: 2 patch Documented by: Montelukast Sodium (Montelukast 10 Mg Tablet) 10 mg PO QHS [facility] Last Admin: 12/19/19 21:08 Dose: 10 mg Documented by: Ondansetron HCl (Ondansetron 4 Mg/2 Ml Vial) 4 mg IV Q8H PRN PRN PRN Reason: NAUSEA/VOMITING Oxycodone HCl (Oxycodone 5 Mg Tablet) 5 mg PO Q6H PRN PRN PRN Reason: Pain Score 4-10 Pantoprazole Sodium (Pantoprazole Sodium 40 Mg Tablet) 40 mg PO BID [facility] Last Admin: 12/20/19 09:45 Dose: 40 mg Documented by: Prochlorperazine Edisylate (Prochlorperazine 10 Mg/2 Ml Vial) 10 mg IV Q6H PRN PRN PRN Reason: Nausea/Vomiting Last Admin: 12/11/19 00:21 Dose: 10 mg Documented by: Senna/Docusate Sodium (Senna/Docusate Sodium 1 Tablet) 2 tablet PO BID PRN PRN PRN Reason: Constipation Last Admin: 12/13/19 22:09 Dose: 1 tablet Documented by: Sodium Chloride (0.9% Saline Lock 10 Ml Syringe) 10 - 40 ml IV UD PRN PRN Reason: SALINE FLUSH Last Admin: 12/19/19 11:30 Dose: 10 ml Documented by: Discharge Diet: Low fat/ Low Cholesterol Discharge Activity: Return to Normal Activity Call your doctor if you observe: Fever of 101 or Higher, Shortness of breath, Dizziness, Fainting spells, Chest pain Home Medications: Medications to take at Discharge Levothyroxine [Synthroid] 25 mcg PO DAILY@0600 02/15/18 montelukast 10 mg tablet 10 mg PO QHS #30 tab 02/27/18 lisinopril 5 mg tablet 5 mg PO DAILY 07/13/18 apixaban 5 mg tablet 5 mg PO BID #60 tab 03/06/19 diltiazem HCl 180 mg capsule,extended release 24 hr 180 mg PO DAILY #30 cap 03/06/19 flecainide 50 mg tablet 50 mg PO BID #60 tab 03/06/19 albuterol sulfate 2.5 mg INHALATION Q4H PRN #180 vial 04/20/19 azelastine 137 mcg (0.1 %) nasal spray aerosol 2 spray INTRANASAL BID #30 ml 10/19/19 cholecalciferol (vitamin D3) 10 mcg/drop (400 unit/drop) oral drops 10 mcg PO DAILY 10/19/19 omega-3 fatty acids 1,000 mg capsule 1,000 mg PO DAILY 10/19/19 albuterol sulfate 90 mcg/actuation aerosol inhaler 2 puff INHALATION Q4H PRN PRN #1 ea 11/16/19 Allopurinol [Zyloprim] 100 mg PO DAILY 12/09/19 Fluticasone/Salmeterol [Advair Hfa 230-21 Mcg Inhaler] 2 puff INHALATION BID 12/09/19 Doxycycline 100 mg PO BID #14 cap 12/20/19 Ferrous Sulfate [Iron] 325 mg PO BID #60 tab 12/20/19 Furosemide [Lasix] 40 mg PO BID #0 12/20/19 Lactobacillus Acidophilus [Acidophilus] 1 tab PO TID #90 tab 12/20/19 Pantoprazole Sodium [Protonix] 40 mg PO BID #60 tab 12/20/19 Polymyxin B Sulf/Trimethoprim [Polytrim Eye Drops] 1 drp OP 4X/DAY #1 bottle 12/20/19 Potassium Chloride [K-Dur] 20 meq PO DAILY #30 tab 12/20/19 levoFLOXacin tablet [Levaquin tablet] 500 mg PO DAILY #4 tab 12/20/19 Following Prescriptions Were Given to Patient: Lactobacillus Acidophilus [Acidophilus] 1 tab PO TID #90 tab Transmission Status: Received by [facility] [id number] Doxycycline 100 mg PO BID #14 cap Transmission Status: Received by [place] [address] Ferrous Sulfate [Iron] 325 mg PO BID #60 tab Transmission Status: Pending to [facility] Potassium Chloride [K-Dur] 20 meq PO DAILY #30 tab Transmission Status: Pending to [facility] levoFLOXacin tablet [Levaquin tablet] 500 mg PO DAILY #4 tab Transmission Status: Received by [place] [address] Polymyxin B Sulf/Trimethoprim [Polytrim Eye Drops] 1 drp OP 4X/DAY #1 bottle Transmission Status: Sent to [facility] Pantoprazole Sodium [Protonix] 40 mg PO BID #60 tab Transmission Status: Received by [place] [id number] Primary Care Physician: Ervin Donnelly MD [Primary Care Provider] - Please follow up with your Primary Care Physician in: 1 Week Please Follow Up With: Marie Langley NP, [employer] When: 2 Weeks Please Follow Up With: Dami Aragon MD When: 2 Weeks Disposition: Home Minutes spent on discharge:: 35 Patient Condition:: Stable Medical Necessity - Tobacco Use Smoking Status: Former smoker Meaningful Use Info Meaningful Use Diagnoses (Choose all that apply): CHF - CHF JOSE/ARB ordered at discharge?: Yes Documented LVEF (%): 65
--- NOTE | 2019-12-21 17:17 | CASEMGMT ---
MARIO HURST Discharge Follow-up Phone Call: RON: Rima Strata: 3 Call Date: 12/21/2019 Discharge Date: 12/20/2019 Time of Call: 1715 Admitting Diagnosis: Septic shock 2/2 pneumonia with pseudomonas and MRSA, Respiratory failure, CHF, ALEXYS, Asthma Discharge follow-up call placed to patient. Pt's sister answered the phone and connected this RN NATALI with the patient. Pt states she has been doing ok since discharge. Denies any issues with shortness of breath and states her temperature has remained below 100. Pt states she received her meds from the [facility] pharmacy and also [employer] delivered the others shortly after she returned home. Pt states her O2 was also delivered as she arrived home. Reviewed follow-up appointments and she is aware of those that are scheduled. She questions reason for follow-up with cardiology and not with ID. Call placed to Linda Gaming NP to further clarify these instructions. Explanation regarding follow-up obtained (need to evaluate fluid balance with increased lasix at discharge and kidney function; ID recommendations obtained and pt may follow-up if prefers but is not routine) and explained to patient. Pt states she will discuss further ID follow-up when she sees her PCP Dr. Donnelly. Pt understanding of need to follow-up with cardiology and states she will not have enough lasix to get her to her appointment on 01/03. Call placed to CHAD Mckeon and she is sending a script to [place] [facility] for the increased lasix dosage. Pt denied any further questions or concerns. Demetrius Patel RN CM
[2019-12-25 16:08] LABS: Glucose, Body Fluid 77 mg/dL (40-70); LDH,Body Fluid 243 Units/l (Not Establ.); Protein, Body Fluid 6.9 g/dL (Not Establ.)
== END 2019-12-20 16:48 | disposition home or self-care (01) | DRG 871 ==
LOC: ED 12-09 02:53 → ICU 12-09 03:05 → PCU 12-10 11:56
PROVIDERS: Internal Medicine; Internal Medicine Critical Care Medicine; Physician Assistant; Admitting Provider Hospitalist; Emergency Provider Emergency Medicine; PCP Family Medicine; Visit Provider Internal Medicine
DX: A41.9 Sepsis, unspecified organism (principal); R65.21 Severe sepsis with septic shock; I50.33 Acute on chronic diastolic (congestive) heart failure; N17.0 Acute kidney failure with tubular necrosis; J96.21 Acute and chronic respiratory failure with hypoxia; J15.1 Pneumonia due to Pseudomonas; J15.212 Pneumonia due to Methicillin resistant Staphylococcus aureus; J44.1 Chronic obstructive pulmonary disease with (acute) exacerbation; J44.0 Chronic obstructive pulmonary disease with (acute) lower respiratory infection; I47.1 Supraventricular tachycardia; J96.11 Chronic respiratory failure with hypoxia; I13.0 Hypertensive heart and chronic kidney disease with heart failure and stage 1 through stage 4 chronic kidney disease, or unspecified chronic kidney disease; Z68.42 Body mass index [BMI] 45.0-49.9, adult; E87.2 Acidosis; G72.0 Drug-induced myopathy; J90 Pleural effusion, not elsewhere classified; N18.30 Chronic kidney disease, stage 3 unspecified; E11.22 Type 2 diabetes mellitus with diabetic chronic kidney disease; R91.1 Solitary pulmonary nodule; J45.40 Moderate persistent asthma, uncomplicated; K21.9 Gastro-esophageal reflux disease without esophagitis; K42.9 Umbilical hernia without obstruction or gangrene; E66.01 Morbid (severe) obesity due to excess calories; E11.51 Type 2 diabetes mellitus with diabetic peripheral angiopathy without gangrene; E78.5 Hyperlipidemia, unspecified; G47.33 Obstructive sleep apnea (adult) (pediatric); E87.8 Other disorders of electrolyte and fluid balance, not elsewhere classified; E11.65 Type 2 diabetes mellitus with hyperglycemia; Z87.891 Personal history of nicotine dependence; Z86.14 Personal history of Methicillin resistant Staphylococcus aureus infection; Z79.01 Long term (current) use of anticoagulants; Z87.01 Personal history of pneumonia (recurrent); E03.9 Hypothyroidism, unspecified; D64.9 Anemia, unspecified; Z79.51 Long term (current) use of inhaled steroids; Z79.890 Hormone replacement therapy; Z79.899 Other long term (current) drug therapy; Z82.49 Family history of ischemic heart disease and other diseases of the circulatory system; Z82.5 Family history of asthma and other chronic lower respiratory diseases; Z83.3 Family history of diabetes mellitus; Z86.711 Personal history of pulmonary embolism; Z86.718 Personal history of other venous thrombosis and embolism; Z90.710 Acquired absence of both cervix and uterus; F41.9 Anxiety disorder, unspecified; I48.0 Paroxysmal atrial fibrillation; G47.00 Insomnia, unspecified; T38.0X5A Adverse effect of glucocorticoids and synthetic analogues, initial encounter
CPT/HCPCS: 36415; 36556; 71045; 71250; 76604; 80048; 80053; 80202; 81001; 82274; 82945; 82962; 83540; 83550; 83605; 83615; 83880; 84156; 84157; 84443; 85014; 85018; 85025; 85610; 85730; 86850; 86900; 86901; 86920; 86922; 87040; 87070; 87077; 87086; 87088; 87149; 87184; 87186; 87205; 87449; 87493; 87633; 87635; 87641; 93005; 94002; 94003; 94640; 94667; 94668; 94762; 97110; 97116; 97162; 97166; 97530; 97535; 97803; 99251; 99285; J7030; J7040; J7050; J7120; P9016; A4216; C1751; G0463; J1940; U0002

== ENCOUNTER → 2019-12-26 15:46 | Outpatient (CLI) | payer MEDICARE, OTHER, SELFPAY ==
[2019-12-09 05:28] VITALS: BMI 45.8
[2019-12-26 18:25] LABS: Hematocrit 33.1 % (37-47); Hemoglobin 9.6 g/dL (12.0-15.0); Mean Corpuscular Hgb 28.5 pg (27.0-32.0); Mean Corpuscular Volume 98.2 fL (81-99); Mean Platelet Vol. 10.7 fl (6.2-12.0); Platelet Count 462 K/mm3 (150-450); RBC Distribution Width CV 16.5 % (11.6-14.6); RBC Distribution Width SD 60.5 fl (35.1-43.9); Red Blood Count 3.37 M/mm3 (4.2-5.4); White Blood Count 6.6 K/mm3 (4.4-11.0)
[2019-12-26 18:53] LABS: Anion Gap 8 (5-15); BUN 54 mg/dL (7-18); BUN/Creat Ratio 13.7 RATIO (10-20); Calcium,Total 9.4 mg/dL (8.5-10.1); Chloride 115 mmol/L (98-107); Creatinine, Serum 3.95 mg/dL (0.55-1.02); EST Glomerular Filtration Rate 12 mL/min (>60); Est Glom Filt Rate - Afr Amer 15 mL/min (>60); Glucose 87 mg/dL (74-106); Potassium 4.3 mmol/L (3.5-5.1); Sodium Level 141 mmol/L (136-145); Thyroid Stim Hormone (TSH) 1.47 uIU/mL (0.358-3.74)
== END ==
PROVIDERS: PCP Family Medicine; Referring Provider Family Medicine; Visit Provider Family Medicine
DX: R25.1 Tremor, unspecified (principal); D64.9 Anemia, unspecified; I50.31 Acute diastolic (congestive) heart failure
CPT/HCPCS: 36415; 80048; 84443; 85027

== ENCOUNTER → 2019-12-28 15:57 | Outpatient (CLI) | payer MEDICARE, OTHER, SELFPAY ==
[2019-12-28 14:07] VITALS: BMI 43.0
[2019-12-28 18:02] LABS: Anion Gap 7 (5-15); BUN 51 mg/dL (7-18); BUN/Creat Ratio 17.9 RATIO (10-20); Calcium,Total 9.7 mg/dL (8.5-10.1); Chloride 113 mmol/L (98-107); Creatinine, Serum 2.85 mg/dL (0.55-1.02); EST Glomerular Filtration Rate 18 mL/min (>60); Est Glom Filt Rate - Afr Amer 21 mL/min (>60); Glucose 89 mg/dL (74-106); Potassium 4.4 mmol/L (3.5-5.1); Sodium Level 142 mmol/L (136-145)
== END ==
PROVIDERS: PCP Family Medicine; Referring Provider Family Medicine; Visit Provider Family Medicine
DX: I10 Essential (primary) hypertension (principal)
CPT/HCPCS: 36415; 80048

== ENCOUNTER → 2020-01-11 11:38 | Outpatient (CLI) | payer MEDICARE, OTHER, SELFPAY ==
[2020-01-04 14:25] VITALS: BMI 42.9
[2020-01-11 15:04] LABS: Anion Gap 7 (5-15); BUN 32 mg/dL (7-18); BUN/Creat Ratio 17.6 RATIO (10-20); Calcium,Total 9.9 mg/dL (8.5-10.1); Chloride 106 mmol/L (98-107); Creatinine, Serum 1.82 mg/dL (0.55-1.02); EST Glomerular Filtration Rate 30 mL/min (>60); Est Glom Filt Rate - Afr Amer 36 mL/min (>60); Glucose 119 mg/dL (74-106); Sodium Level 138 mmol/L (136-145)
== END ==
PROVIDERS: PCP Family Medicine; Referring Provider Family Medicine; Visit Provider Family Medicine
DX: N28.9 Disorder of kidney and ureter, unspecified (principal)
CPT/HCPCS: 36415; 80048

== ENCOUNTER → 2020-01-23 14:07 | Outpatient (CLI) | payer MEDICARE, OTHER, SELFPAY ==
[2020-01-04 14:25] VITALS: BMI 42.9
[2020-01-23 15:24] LABS: Hematocrit 28.9 % (37-47); Hemoglobin 8.8 g/dL (12.0-15.0); Mean Corp Hgb Conc 30.4 g/dL (32-36); Mean Corpuscular Volume 95.4 fL (81-99); Mean Platelet Vol. 9.9 fl (6.2-12.0); Platelet Count 349 K/mm3 (150-450); RBC Distribution Width CV 15.7 % (11.6-14.6); RBC Distribution Width SD 53.4 fl (35.1-43.9); Red Blood Count 3.03 M/mm3 (4.2-5.4); White Blood Count 6.9 K/mm3 (4.4-11.0)
[2020-01-23 15:55] LABS: Anion Gap 6 (5-15); BUN 26 mg/dL (7-18); BUN/Creat Ratio 19.4 RATIO (10-20); Chloride 108 mmol/L (98-107); Creatinine, Serum 1.34 mg/dL (0.55-1.02); EST Glomerular Filtration Rate 42 mL/min (>60); Est Glom Filt Rate - Afr Amer 51 mL/min (>60); Ferritin 191 ng/mL (8-252); Glucose 124 mg/dL (74-106); Iron 49 ug/dL (50-170); Potassium 4.1 mmol/L (3.5-5.1); Sodium Level 141 mmol/L (136-145)
== END ==
PROVIDERS: PCP Family Medicine; Referring Provider Family Medicine; Visit Provider Family Medicine
DX: D64.9 Anemia, unspecified (principal); N28.9 Disorder of kidney and ureter, unspecified
CPT/HCPCS: 36415; 80048; 82728; 83540; 85027

== ENCOUNTER → 2020-03-13 13:39 | Outpatient (CLI) | payer MEDICARE, OTHER, SELFPAY ==
[2020-02-05 14:09] VITALS: BMI 44.7
[2020-03-13 13:45] VITALS: PULSE 115; PULSE 128; PULSE 135; PULSE 137; PULSE 92; PULSE 99; O2SAT 95; O2SAT 96; O2SAT 98
--- NOTE | 2020-03-14 07:02 | PCM.PSN.6M ---
PSN 6 Minute Walk Test - 6 Minute Walk Test 6 Minute Walk Test: 6 Minute Walk Test PSN:6-Minute Walk Test Start: 03/13/20 14:04 Freq: Status: Active Protocol: [id number].6MINW Document 03/13/20 13:45 HJ (Rec: 03/13/20 14:07 [id number]) 6 Minute Walk Test Date Performed 03/13/20 Time Performed 13:45 Height 5 ft 1 in Weight: 230 lb Weight in Pounds 230.[address]: Pete Bazzi FIO2 (% Oxygen) 21 Assistive device used: None Pre-test Oxygen Delivery Method Room Air Pulse Ox (%) 98 Pulse Rate (60-100 beats/min) 92 Dyspnea Soraya Scale (0-10) 0 Exertion Soraya Scale (6-20) 6 1st minute Oxygen Delivery Method Room Air Pulse Ox (%) 96 Pulse Rate (60-100 beats/min) 115 H 2nd minute Oxygen Delivery Method Room Air Pulse Ox (%) 96 Pulse Rate (60-100 beats/min) 128 H 3rd minute Oxygen Delivery Method Room Air Pulse Ox (%) 96 Pulse Rate (60-100 beats/min) 135 H 4th minute Oxygen Delivery Method Room Air Pulse Ox (%) 96 Pulse Rate (60-100 beats/min) 137 H 5th minute Oxygen Delivery Method Room Air Pulse Ox (%) 95 Pulse Rate (60-100 beats/min) 137 H 6th minute Oxygen Delivery Method Room Air Pulse Ox (%) 95 Pulse Rate (60-100 beats/min) 137 H Post-test Oxygen Delivery Method Room Air Pulse Ox (%) 98 Pulse Rate (60-100 beats/min) 99 Dyspnea Soraya Scale (0-10) 3 Exertion Soraya Scale (6-20) 13 Full Laps Walked 13 Partial Lap, Number of Tiles Walked 40 Total Distance Walked (ft) 807 - Interpretation Interpretation: The patient ambulated 807 feet over the course of 6 minutes beginning on room air without assistive devices or breaks. Pretesting oxygen saturation was noted to be 98% on room air. With ambulation, the yon oxygen saturation was 95%. There was no significant exertional oxygen desaturation. - Recommendations Recommendations: There is no indication for the use of supplemental oxygen at this time.
== END ==
PROVIDERS: PCP Family Medicine; Referring Provider Internal Medicine Critical Care Medicine; Visit Provider Internal Medicine Critical Care Medicine
DX: J44.1 Chronic obstructive pulmonary disease with (acute) exacerbation (principal)
CPT/HCPCS: 94618

== ENCOUNTER → 2020-04-08 13:05 | Outpatient (CLI) | payer MEDICARE, OTHER, SELFPAY ==
[2020-04-02 14:29] VITALS: BMI 44.4
== END ==
PROVIDERS: PCP Family Medicine; Referring Provider Nurse Practitioner Acute Care; Visit Provider Nurse Practitioner Acute Care
DX: R05 Cough (principal)
CPT/HCPCS: 87070; 87077; 87186; 87205

== ENCOUNTER → 2020-04-16 11:15 | Outpatient (CLI) | payer MEDICARE, OTHER, SELFPAY ==
[2020-04-02 14:29] VITALS: BMI 44.4
--- NOTE | 2020-04-16 11:17 | RAD_ITS ---
STUDY: X-RAY CHEST REASON FOR EXAM: Female, 65 years old. PNEUMONIA TECHNIQUE: Frontal and lateral views of the chest. COMPARISON: CT dated 12/13/2019 and chest radiograph dated 11/17/2019 FINDINGS: There is a right pleural effusion. There is a 2 cm nodular opacity within the right mid lung. There are few right basilar streaky opacities. Normal size heart. Normal mediastinum and tami. Normal visualized pulmonary arteries. Normal visualized aortic arch and descending thoracic aorta. Normal visualized thoracic spine. There is a levoscoliosis of the lumbar spine. There are postsurgical changes of the right shoulder. There is no demonstrated abnormality of the visualized soft tissue structures of the upper abdomen. RAD/Chest PA and Lateral IMPRESSION: Right pleural effusion, cannot exclude associated right basilar atelectasis and/or pneumonia. 2 cm nodular opacity within the right midlung, consider chest CT for further evaluation. Electronically Signed: Mahnaz Horton MD at 17:00 EST Tel , Service support ,
== END ==
PROVIDERS: PCP Family Medicine; Referring Provider Internal Medicine Infectious Disease; Visit Provider Internal Medicine Infectious Disease
DX: J18.9 Pneumonia, unspecified organism (principal)
CPT/HCPCS: 71046

== ENCOUNTER → 2020-04-22 14:03 | Outpatient (CLI) | payer MEDICARE, OTHER, SELFPAY ==
[2020-04-02 14:29] VITALS: BMI 44.4
[2020-04-22 15:30] LABS: Hematocrit 40.3 % (37-47); Hemoglobin 12.4 g/dL (12.0-15.0); Mean Corp Hgb Conc 30.8 g/dL (32-36); Mean Corpuscular Hgb 29.3 pg (27.0-32.0); Mean Corpuscular Volume 95.3 fL (81-99); Mean Platelet Vol. 10.2 fl (6.2-12.0); Platelet Count 357 K/mm3 (150-450); RBC Distribution Width CV 12.8 % (11.6-14.6); RBC Distribution Width SD 44.8 fl (35.1-43.9); Red Blood Count 4.23 M/mm3 (4.2-5.4); White Blood Count 6.4 K/mm3 (4.4-11.0)
[2020-04-22 15:56] LABS: Anion Gap 8 (5-15); BUN 28 mg/dL (7-18); BUN/Creat Ratio 20.3 RATIO (10-20); Calcium,Total 9.4 mg/dL (8.5-10.1); Chloride 106 mmol/L (98-107); Creatinine, Serum 1.38 mg/dL (0.55-1.02); EST Glomerular Filtration Rate 41 mL/min (>60); Est Glom Filt Rate - Afr Amer 49 mL/min (>60); Ferritin 29 ng/mL (8-252); Glucose 75 mg/dL (74-106); Iron 40 ug/dL (50-170); Potassium 4.2 mmol/L (3.5-5.1); Sodium Level 141 mmol/L (136-145)
== END ==
PROVIDERS: PCP Family Medicine; Visit Provider Family Medicine
DX: E11.22 Type 2 diabetes mellitus with diabetic chronic kidney disease (principal)
CPT/HCPCS: 36415; 80048; 82728; 83540; 85027

== ENCOUNTER → 2020-04-25 12:51 | Outpatient (CLI) | payer MEDICARE, OTHER, SELFPAY ==
[2020-04-02 14:29] VITALS: BMI 44.4
--- NOTE | 2020-04-25 12:53 | CT_ITS ---
INDICATION: PNEUMONIA EXAMINATION: CT Chest W/O Contrast Injection TECHNIQUE: Helically acquired images were obtained of the chest without IV contrast. A radiation dose optimization technique was used for this scan. COMPARISON: 12/13/2019. FINDINGS: Lungs: Interval resolution of right lower lobe pneumonia. Multiple bilateral scattered pulmonary nodules are stable in size when compared to prior on 12/13/2019. For example, there is a 2.3 cm pulmonary nodule in the right upper lobe (image 44, series 4) and a 8 mm pulmonary nodule in the left upper lobe (image 25, series 4). No new pulmonary nodules. Mediastinum: The cardiomediastinal silhouette is not enlarged. No mediastinal, hilar or axillary adenopathy. Moderate aortic arch and coronary artery calcifications. Pleura: Unremarkable Bones/Soft tissues: Multi-level degenerative changes of the thoracolumbar spine. Dextroscoliosis of the lower thoracolumbar spine. Increased thoracic kyphosis. Right shoulder arthroplasty/prosthesis. Upper abdomen: No visualized abnormalities in the upper abdomen. CT/Chest without Contrast IMPRESSION: Interval resolution of right lower lobe pneumonia. Stable bilateral pulmonary nodules. Consider PET scan. Electronically Signed: Terry Anderson MD at 17:34 EST Tel , Service support ,
== END ==
PROVIDERS: PCP Family Medicine; Referring Provider Internal Medicine Infectious Disease; Visit Provider Internal Medicine Infectious Disease
DX: J18.9 Pneumonia, unspecified organism (principal)
CPT/HCPCS: 71250

== ENCOUNTER → 2020-05-27 12:22 | Outpatient (CLI) | payer MEDICARE, OTHER, SELFPAY ==
[2020-04-02 14:29] VITALS: BMI 44.4
== END ==
PROVIDERS: PCP Family Medicine; Referring Provider Internal Medicine Infectious Disease; Visit Provider Internal Medicine Infectious Disease
DX: J18.9 Pneumonia, unspecified organism (principal)
CPT/HCPCS: 87070; 87205

== ENCOUNTER → 2020-05-27 15:59 | Outpatient (CLI) | payer MEDICARE, OTHER, SELFPAY ==
[2020-04-02 14:29] VITALS: BMI 44.4
--- NOTE | 2020-05-27 16:10 | RAD_ITS ---
STUDY: X-RAY CHEST REASON FOR EXAM: Female, 65 years old. PNA TECHNIQUE: PA and lateral views of the chest. COMPARISON: 04/16/2020 FINDINGS: Poor inspiration with some bibasilar atelectasis. No change in a 2 cm nodule in the right upper lobe the lungs as seen on recent chest CT. There is no demonstrated pleural abnormality. Normal size heart. Normal mediastinum and tami. Normal visualized pulmonary arteries. Normal visualized aortic arch and descending thoracic aorta. Normal visualized thoracic spine. Status post right shoulder hemiarthroplasty which is unchanged. There is no demonstrated abnormality of the visualized soft tissue structures of the upper abdomen. RAD/Chest PA and Lateral IMPRESSION: Poor inspiration with some bibasilar atelectasis. Electronically Signed: Johnny Mo MD at 8:11 EDT Tel , Service support ,
== END ==
PROVIDERS: PCP Family Medicine; Referring Provider Internal Medicine Infectious Disease; Visit Provider Internal Medicine Infectious Disease
DX: J18.9 Pneumonia, unspecified organism (principal)
CPT/HCPCS: 71046; 87070; 87077; 87186; 87205

== ENCOUNTER → 2020-06-21 09:43 | Outpatient (CLI) | payer MEDICARE, OTHER, SELFPAY ==
[2020-04-02 14:29] VITALS: BMI 44.4
== END ==
PROVIDERS: PCP Family Medicine; Referring Provider Internal Medicine Infectious Disease; Visit Provider Internal Medicine Infectious Disease
DX: J18.9 Pneumonia, unspecified organism (principal)
CPT/HCPCS: 87070; 87077; 87186; 87205

== ENCOUNTER → 2020-06-26 10:29 | Outpatient (CLI) | payer MEDICARE, OTHER, SELFPAY ==
[2020-04-02 14:29] VITALS: BMI 44.4
[2020-06-26 12:10] LABS: Anion Gap 6 (5-15); BUN 25 mg/dL (7-18); BUN/Creat Ratio 17.2 RATIO (10-20); Calcium,Total 9.2 mg/dL (8.5-10.1); Chloride 107 mmol/L (98-107); Creatinine, Serum 1.45 mg/dL (0.55-1.02); EST Glomerular Filtration Rate 38 mL/min (>60); Est Glom Filt Rate - Afr Amer 46 mL/min (>60); Glucose 136 mg/dL (74-106); Potassium 4.1 mmol/L (3.5-5.1); Sodium Level 141 mmol/L (136-145)
== END ==
PROVIDERS: PCP Family Medicine; Referring Provider Family Medicine; Visit Provider Family Medicine
DX: E11.22 Type 2 diabetes mellitus with diabetic chronic kidney disease (principal)
CPT/HCPCS: 36415; 80048

== ENCOUNTER → 2020-07-08 12:11 | Outpatient (CLI) | payer MEDICARE, OTHER, SELFPAY ==
[2020-04-02 14:29] VITALS: BMI 44.4
--- NOTE | 2020-07-08 12:20 | RAD_ITS ---
STUDY: X-RAY - LUMBAR SPINE REASON FOR EXAM: Female, 65 years old. SCIATICA TECHNIQUE: 4 view(s) of the lumbar spine were obtained. COMPARISON: 05/30/2018 FINDINGS: Normal lumbar lordosis. Moderate levoscoliosis centered at L2. 2 mm retrolisthesis of L1 on L2, 2 mm retrolisthesis of L2 on L3, and 2 mm of anterolisthesis of L5 on S1 all of which are unchanged. There is multilevel endplate spondylosis of the lumbar vertebrae. There is multi-level degenerative disc disease with multi-level disc space narrowing. The soft tissue structures are unremarkable. RAD/L/S Spine Min 4 Views IMPRESSION: Moderate levoscoliosis with moderate degenerative disc disease with subluxation as described above. Electronically Signed: Johnny Mo MD at 8:36 EDT Tel , Service support ,
[2020-07-08 16:27] LABS: Anion Gap 5 (5-15); BUN 32 mg/dL (7-18); BUN/Creat Ratio 24.4 RATIO (10-20); Calcium,Total 9.3 mg/dL (8.5-10.1); Chloride 109 mmol/L (98-107); Creatinine, Serum 1.31 mg/dL (0.55-1.02); EST Glomerular Filtration Rate 43 mL/min (>60); Est Glom Filt Rate - Afr Amer 52 mL/min (>60); Glucose 89 mg/dL (74-106); Potassium 4.3 mmol/L (3.5-5.1); Sodium Level 141 mmol/L (136-145)
== END ==
PROVIDERS: PCP Family Medicine; Referring Provider Family Medicine; Visit Provider Family Medicine
DX: M54.40 Lumbago with sciatica, unspecified side (principal); N18.30 Chronic kidney disease, stage 3 unspecified
CPT/HCPCS: 36415; 72110; 80048

== ENCOUNTER → 2020-08-06 09:56 | Outpatient (CLI) | payer MEDICARE, OTHER, SELFPAY ==
[2020-08-06 08:14] VITALS: BMI 44.4
--- NOTE | 2020-08-06 10:00 | RAD_ITS ---
STUDY: X-RAY - PELVIS AND BILATERAL HIPS REASON FOR EXAM: Female, 65 years old. Bilateral hip pain. TECHNIQUE: AP view of the pelvis.? 2 views of the right hip, and 2 views of the left hip were obtained. COMPARISON: None. FINDINGS: There is a non-specific bowel gas pattern. Normal visualized soft tissue structures. Normal bilateral iliac wings, sacroiliac joints and visualized sacrum. Normal bilateral superior and inferior pubic rami. Normal pubic symphysis. Normal bilateral ischial tuberosities. Normal visualized right femoral head. There is cortical sclerosis with sub-cortical cyst formation of the right acetabulum. There is moderate articular joint space narrowing of the right hip. Normal visualized left femoral head. Normal left acetabulum. There is mild articular joint space narrowing of the left hip. RAD/Hips B/L min 2 views w/ Pelvis IMPRESSION: Degenerative changes of bilateral hips, right greater than left. Electronically Signed: Dave Dietz DO at 23:56 EDT Tel [phone], Service support ,
== END ==
PROVIDERS: PCP Family Medicine; Referring Provider Family Medicine; Visit Provider Family Medicine
DX: M25.559 Pain in unspecified hip (principal)
CPT/HCPCS: 73521

== ENCOUNTER → 2020-08-06 14:17 | Outpatient (CLI) | payer MEDICARE, OTHER, SELFPAY ==
[2020-08-06 13:44] VITALS: BMI 45.4
[2020-08-06 14:41] LABS: Absolute Lymphocyte Count 1.44 X10^3/uL (0.83-4.51); Basophil# 0.02 X10^3/uL; Basophil% 0.3 % (0-1); Eosinophils% 1.4 % (0-5); Hematocrit 35.1 % (37-47); Lymphocyte # 1.44 X10^3/ul (0.83-4.51); Lymphocyte % 20.1 % (19-41); Mean Corp Hgb Conc 31.3 g/dL (32-36); Mean Corpuscular Hgb 29.7 pg (27.0-32.0); Mean Corpuscular Volume 94.9 fL (81-99); Mean Platelet Vol. 9.4 fl (6.2-12.0); Monocyte# 0.62 X10^3/uL; Monocyte% 8.7 % (0-10); NRBC Flagged by Analyzer 0 % (0-5); Neutrophil # 4.95 X10^3/uL (2.7-7.7); Neutrophil % 69.1 % (47-70); Platelet Count 390 K/mm3 (150-450); RBC Distribution Width CV 14.1 % (11.6-14.6); RBC Distribution Width SD 48.3 fl (35.1-43.9); White Blood Count 7.2 K/mm3 (4.4-11.0)
[2020-08-14 14:26] LABS: Immunoglobulin E 751 IU/mL (6-495)
== END ==
PROVIDERS: PCP Family Medicine; Referring Provider Internal Medicine Critical Care Medicine; Visit Provider Internal Medicine Critical Care Medicine
DX: J45.40 Moderate persistent asthma, uncomplicated (principal); M25.559 Pain in unspecified hip
CPT/HCPCS: 36415; 73521; 82785; 85025

== ENCOUNTER → 2020-08-07 10:31 | Outpatient (CLI) | payer MEDICARE, OTHER, SELFPAY ==
[2020-08-06 13:44] VITALS: BMI 45.4
== END ==
PROVIDERS: PCP Family Medicine; Visit Provider Internal Medicine Critical Care Medicine
DX: J45.40 Moderate persistent asthma, uncomplicated (principal)
CPT/HCPCS: 87070; 87077; 87186; 87205

== ENCOUNTER 2020-08-09 13:59 | Emergency (ER) | payer MEDICARE, OTHER, SELFPAY ==
[2020-08-06 13:44] VITALS: BMI 45.4
[2020-08-09 14:01] VITALS: BP 157/80; PULSE 95; RESP 14; TEMP 37.1; O2SAT 97; BMI 44.7
--- NOTE | 2020-08-09 14:48 | EDS_ITS ---
HPI History of Present Illness Chief Complaint: Palpitations Informant: patient Narrative Narrative: Patient is a 65-year-old female with a past medical history of atrial fibrillation, DVT/PE, COPD not on supplemental oxygen who is anticoagulated who presents to the emergency department for heart palpitations, generalized weakness, cough and feeling off balance. Her initial symptoms started 3 days ago. She states that she was put on prednisone as she was having wheezing by her PCP. She did a sputum sample which she states just came back positive for Pseudomonas. She has had this before in the past. She denies any fevers, chills or body aches. No headache or neck stiffness. She denies chest pain. No abdominal pain or nausea/vomiting. No urinary issues or change in bowel movements. No weakness or loss of sensation in any extremity. She has chronic swelling of her lower extremities that is no worse than normal. She denies any calf pain. 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 Hx pulmonary embolism Hyperlipidemia Insomnia Lung nodule Morbid obesity MRSA pneumonia Obesity Obstructive sleep apnea Paroxysmal atrial fibrillation Paroxysmal atrial tachycardia Pneumonia Precordial chest pain Pulmonary embolism PVD (peripheral vascular disease) Right foot pain Severe sepsis Steroid myopathy Tachycardia Thrush, oral Umbilical hernia Venous thromboembolism (VTE) Weakness Home Medications cholecalciferol (vitamin D3) 10 mcg/drop (400 unit/drop) oral drops 2,000 unit PO DAILY 10/19/19 [History Last Taken Unknown] omega-3 fatty acids 1,000 mg capsule 1,000 mg PO DAILY 10/19/19 [History Last Taken Unknown] acidophilus-pectin, citrus 1 tab PO TID #90 tab 12/20/19 [Rx Last Taken Unknown] potassium chloride 20 meq PO DAILY #30 tab 12/20/19 [Rx Last Taken Unknown] levothyroxine 25 mcg tablet 25 mcg PO DAILY@0600 01/04/20 [History Last Taken Unknown] diltiazem HCl 180 mg capsule,extended release 24 hr 180 mg PO DAILY #90 cap 03/11/20 [Rx Last Taken Unknown] flecainide 50 mg tablet 50 mg PO BID #180 tab 03/11/20 [Rx Last Taken Unknown] fluticasone propionate 230 mcg-salmeterol 21 mcg/actuation HFA inhaler 2 puff INHALATION BID #3 device 03/11/20 [Rx Last Taken Unknown] furosemide 40 mg tablet 20 mg PO BID #90 tab 03/11/20 [Rx Last Taken Unknown] montelukast 10 mg tablet 10 mg PO QHS #90 tab 03/11/20 [Rx Last Taken Unknown] albuterol sulfate 2.5 mg INHALATION Q4H PRN #180 vial 03/17/20 [Rx Last Taken Unknown] apixaban 5 mg tablet 5 mg PO BID #180 tab 04/02/20 [Rx Last Taken Unknown] esomeprazole magnesium 40 mg capsule,delayed release 40 mg PO QAM cap 04/02/20 [History Last Taken Unknown] famotidine 40 mg tablet 40 mg PO QHS 04/02/20 [History Last Taken Unknown] prednisone 20 mg tablet 40 mg PO DAILY 5 Days #10 tab 08/06/20 [Rx Last Taken Unknown] azelastine 2 spray INTRANASAL BID PRN 08/09/20 [History Last Taken Unknown] cyclobenzaprine [Flexeril] 10 mg PO BID 08/09/20 [History Last Taken Unknown] ferrous sulfate 325 mg PO DAILY 08/09/20 [History Last Taken Unknown] Allergy/AdvReac Type Severity Reaction Status Date / Time adhesive Allergy Other Verified 08/09/20 14:00 azithromycin [From Zithromax] Allergy Rash Verified 08/09/20 14:00 cefuroxime sodium Allergy Rash Verified 08/09/20 14:00 [From Zinacef] clindamycin Allergy Hives Verified 08/09/20 14:00 nitrofurantoin Allergy Rash Verified 08/09/20 14:00 macrocrystalline [From Macrodantin] Sulfa (Sulfonamide Allergy Rash Verified 08/09/20 14:00 Antibiotics) atenolol AdvReac Severe Peripheal Verified 08/09/20 14:00 edema & cough metoprolol [From Toprol XL] AdvReac Severe Peripheral Verified 08/09/20 14:00 edema & cough duloxetine [From Cymbalta] AdvReac Intermediate made me Verified 08/09/20 14:00 feel really sick oxycodone HCl [From Percocet] AdvReac Vomiting Verified 08/09/20 14:00 STEROID AdvReac Other Uncoded 08/09/20 14:00 Family History Mother Hypertension Diabetes Heart disease Pulmonary embolism Father Perforated ulcer Respiratory failure Sister Asthma Hypertension Surgical History H/O section H/O foot surgery H/O hernia repair H/O shoulder surgery H/O: hysterectomy History of cardioversion (~12/2016) History of left heart catheterization Social History Smoking Status: Former smoker quit date: 02/14/75 pack-years: 3 second hand exposure: No alcohol intake: never substance use type: does not use caffeine: No what type of physical activity do you participate in: none ROS ROS ED Constitutional Constitutional ED: Reports weakness; Denies chills or fever(s) Eyes Eyes: Denies change in vision ENT ENT ED: Denies epistaxis or rhinorrhea Cardiovascular Cardiovascular: Denies chest pain Respiratory/Chest Respiratory/Chest: Reports cough; Denies dyspnea Gastrointestinal Gastrointestinal: Denies abdominal pain, diarrhea, nausea or vomiting Genitourinary Genitourinary ED: Denies dysuria, hematuria or urinary frequency Musculoskeletal Musculoskeletal: Denies back pain or neck pain Integumentary Denies rash Neurologic Neurologic: Denies dizziness, headache(s) or weakness EXAM Physical Exam Const Vital Signs: 08/09/20 14:01 08/09/20 15:18 08/09/20 15:25 Temperature 98.7 F Temperature Source Temporal Pulse Rate 95 95 Respiratory Rate 14 13 Respiratory Effort Normal Blood Pressure 157/80 H Blood Pressure Mean 105 Pulse Ox 97 96 Oxygen Delivery Method Room Air Room Air Oxygen Flow Rate (L/min) 08/09/20 17:00 08/09/20 18:56 08/09/20 20:57 Temperature 98.1 F Temperature Source Oral Pulse Rate 86 94 84 Respiratory Rate 16 20 H 18 Respiratory Effort Blood Pressure 189/87 H 161/88 H Blood Pressure Mean 121 112 Pulse Ox 99 98 100 Oxygen Delivery Method Room Air Nasal Cannula Nasal Cannula Oxygen Flow Rate (L/min) 2 2 Positive well nourished and well developed General Appearance ED: well developed and NAD HEENT Reports normocephalic, head/scalp atraumatic and moist mucous membranes Eyes PERRL and EOMs intact bilaterally Neck supple Chest Wall inspection of chest normal Resp normal respiratory effort and clear to auscultation bilaterally Auscultation: Negative for rales, rhonchi or wheezes Cardio regular rate and no murmurs Cardio Narrative: irregular rhythm GI normal to inspection, nondistended, normoactive bowel sounds and non-tender Palpation: soft; Negative for guarding or rebound tenderness present Back/Spine no CVA tenderness Extremity normal to inspection General Extremety ED: Negative for tenderness Neuro oriented x3, CN's II-XII intact bilaterally and no sensory deficits noted Sensorium / Orientation: alert Motor Exam: strength 5/5 throughout Psych mental status grossly normal Skin no rashes or lesions noted MDM MDM MDM Narrative Medical decision making narrative: Patient presents to the ED for multiple issues including intermittent palpitations with a known history of A. fib, generalized weakness, cough as well as feeling off balance. On arrival to the emergency department she is mildly hypertensive but otherwise normal vital signs. She is a benign physical exam without any focal neurological deficits. Will check EKG, chest x-ray and basic lab work. Patient is EKG did not show any signs of ischemia or arrhythmia. Chest x-ray did not reveal any acute cardiopulmonary abnormality. She does not have a high white blood cell count. Troponin within normal limits. Her lactic acid was mildly elevated 2.3 and she is given IV fluids. Her creatinine was 1.76. No other significant acute abnormality on work-up. I did review her sputum culture which did grow out Pseudomonas. She has grew out this many times before in the past. We did attempt to ambulate the patient to see if she was still feeling off balance after the fluids. She was put on a pulse oximeter and desatted to 88%. Given the desaturation we did perform a CT scan of her chest to evaluate for any evidence of pneumonia as the chest x-ray did not pick this up. I have low concern for PE, aortic dissection or ACS. The CT scan showed a nodule which patient was already aware of. No obvious new consolidation. I did offer hospitalization given her oxygen desaturation but patient is adamant on wanting to go home as she has to take care of her daughter. She is going to follow-up with her PCP on Tuesday. She is going to continue her prednisone. She wants to discuss treatment with antibiotics with her PCP on Tuesday for the Pseudomonas. She does not want antibiotics at this time. If patient develops any worsening symptoms whatsoever she needs to return back to the emergency department for further evaluation and management. She understands and is agreeable this plan. All questions were answered. Lab Data Labs: Laboratory Results - last 24 hr 08/09/20 08/09/20 08/09/20 16:38 16:38 16:38 WBC 7.0 RBC 4.05 L Hgb 11.9 L Hct 37.9 MCV 93.6 MCH 29.4 MCHC 31.4 L RDW Std Deviation 47.6 H RDW Coeff of Lanre 14.0 Plt Count 430 MPV 9.6 Immature Gran % (Auto) 1.000 H Neut % (Auto) 86.9 H Lymph % (Auto) 9.0 L [place] % (Auto) 3.0 Eos % (Auto) 0.0 Baso % (Auto) 0.1 Absolute Neuts (auto) 6.1 Absolute Lymphs (auto) 0.63 L Nucleated RBC % 0 Sodium 139 Potassium 3.9 Chloride 107 Carbon Dioxide 22.0 Anion Gap 10 BUN 40 H Creatinine 1.76 H Estim Creat Clear Calc 24.87 Est GFR (MDRD) Af Amer 37 L Est GFR (MDRD) Non-Af 31 L BUN/Creatinine Ratio 22.7 H Glucose 145 H Lactic Acid 2.3 H* Calcium 9.2 Magnesium 2.3 Total Bilirubin 0.20 AST 10 L ALT 21 Alkaline Phosphatase 145 H Troponin I High Sens 6.5 Total Protein 8.4 H Albumin 3.3 Globulin 5.1 H Albumin/Globulin Ratio 0.6 L Radiography Diagnostic Testing: Radiology Impression Chest X-Ray 08/09/20 16:18 IMPRESSION: 1. No acute cardiopulmonary process. 2. Right mid lung nodule stable since prior CT. Electronically Signed: Scottie Pena MD ([place]) at 17:02 EDT , Service support , Chest CT 08/09/20 19:13 IMPRESSION: No acute cardiopulmonary findings or changes. Stable bilateral pulmonary nodules and stable bibasilar fibrotic changes without new consolidation, focal atelectasis, other infiltrates or pleural effusion. Normal cardiac size. Left coronary calcifications. Negative for pericardial effusion. Stable atherosclerotic changes of the aorta. No acute osseous findings. No acute findings in the uppermost abdomen. Electronically Signed: Flory Min MD at 20:34 EDT , Service support , EKG Initial EKG: Attestation: I personally reviewed and interpreted this EKG as follows: (Rate of 83 bpm in sinus rhythm. There are PVCs present. Otherwise normal intervals. Left axis deviation. No significant ST elevations or depressions.) Discharge Plan Triage Chief Complaint: Palpitations ED Provider: Lul Dai Dx/Rx/DC Orders Clinical Impression: Palpitations, Cough Instructions: ED Dyspnea, ED Palpitations Prescriptions: No Action omega-3 fatty acids [Fish Oil Concentrate] 1,000 mg capsule 1,000 mg PO DAILY RF: 0 cholecalciferol (vitamin D3) [Baby Vitamin D3] 10 mcg/drop (400 unit/drop) drops 2,000 unit PO DAILY RF: 0 prednisone 20 mg tablet 40 mg PO DAILY 5 Days Qty: 10 RF: 0 famotidine 40 mg tablet 40 mg PO QHS RF: 0 esomeprazole magnesium [Nexium] 40 mg capsule,delayed release(DR/EC) 40 mg PO QAM RF: 0 apixaban 5 mg tablet 5 mg PO BID Qty: 180 RF: 4 levothyroxine 25 mcg tablet 25 mcg PO DAILY@0600 RF: 0 acidophilus-pectin, citrus 1 TABLET tablet 1 tab PO TID Qty: 90 RF: 0 potassium chloride 20 MEQ tablet 20 meq PO DAILY Qty: 30 RF: 0 ferrous sulfate 325 MG tablet 325 mg PO DAILY RF: 0 azelastine 137 mcg (0.1 %) aerosol,spray 2 spray INTRANASAL BID PRN (Reason: allergies) RF: 0 cyclobenzaprine [Flexeril] 10 mg Tablet 10 mg PO BID RF: 0 Advair HFA 230-21 mcg/actuation HFA aerosol inhaler 2 puff INHALATION BID Qty: 3 RF: 11 montelukast 10 mg tablet 10 mg PO QHS Qty: 90 RF: 11 diltiazem HCl 180 mg capsule,extended release 24hr 180 mg PO DAILY Qty: 90 RF: 3 flecainide 50 mg tablet 50 mg tablet 50 mg PO BID Qty: 180 RF: 3 furosemide 40 mg tablet 20 mg PO BID Qty: 90 RF: 3 albuterol sulfate 2.5 mg /3 mL (0.083 %) solution for nebulization 2.5 mg INHALATION Q4H PRN Qty: 180 RF: 6 Primary Care Provider: Ervin Donnelly Referrals: Ervin Donnelly MD [Primary Care Provider] - 2 Days Disposition Disposition: Home, Self Care Discharge Date/Time: 08/09/20 20:58
[2020-08-09 15:18] VITALS: PULSE 95; RESP 13; O2SAT 96
--- NOTE | 2020-08-09 16:17 | EKG12_ITS ---
Test Reason : WEAKNESS Blood Pressure : / mmHG Vent. Rate : 083 BPM Atrial Rate : 083 BPM P-R Int : 156 ms QRS Dur : 084 ms QT Int : 378 ms P-R-T Axes : 013 -18 041 degrees QTc Int : 444 ms Sinus rhythm with frequent Premature ventricular complexes and Premature atrial complexes Otherwise normal ECG Confirmed by ROB CARMONA, SHAHRZAD ([id number]), pulmonology technician MAXWELL MILLS ([id number]) on 08/12/2020 8:58:33 AM Referred By: LARA Confirmed By:SHAHRZAD RIVAS MD
--- NOTE | 2020-08-09 16:18 | RAD_ITS ---
STUDY: X-RAY CHEST REASON FOR EXAM: Female, 65 years old. Cough, palpitations TECHNIQUE: PA and lateral views of the chest. COMPARISON: 04/25/2020 CT FINDINGS: There are interstitial fibrotic changes of the lungs. No airspace consolidation. Nodule in the right midlung is stable. The remainder of the nodule seen on prior CT are not well identified on chest x-ray. There is no demonstrated pleural abnormality. Normal size heart. Normal mediastinum and tami. Normal visualized pulmonary arteries. There is atherosclerotic calcification of the aortic arch with tortuosity. There is demineralization of the osseous structures. Right shoulder replacement. There is no demonstrated abnormality of the visualized soft tissue structures of the upper abdomen. RAD/Chest PA and Lateral IMPRESSION: 1. No acute cardiopulmonary process. 2. Right mid lung nodule stable since prior CT. Electronically Signed: Scottie Pena MD ([place]) at 17:02 EDT , Service support ,
[2020-08-09 17:00] VITALS: PULSE 86; RESP 16; O2SAT 99
[2020-08-09 17:02] LABS: Absolute Lymphocyte Count 0.63 X10^3/uL (0.83-4.51); Absolute Neutrophil Count 6.1 X10^3/uL (2.0-7.7); Basophil# 0.01 X10^3/uL; Basophil% 0.1 % (0-1); Hematocrit 37.9 % (37-47); Hemoglobin 11.9 g/dL (12.0-15.0); Lymphocyte # 0.63 X10^3/ul (0.83-4.51); Mean Corp Hgb Conc 31.4 g/dL (32-36); Mean Corpuscular Hgb 29.4 pg (27.0-32.0); Mean Corpuscular Volume 93.6 fL (81-99); Mean Platelet Vol. 9.6 fl (6.2-12.0); Monocyte# 0.21 X10^3/uL; NRBC Flagged by Analyzer 0 % (0-5); Neutrophil # 6.09 X10^3/uL (2.7-7.7); Neutrophil % 86.9 % (47-70); Platelet Count 430 K/mm3 (150-450); RBC Distribution Width SD 47.6 fl (35.1-43.9); Red Blood Count 4.05 M/mm3 (4.2-5.4)
[2020-08-09 17:24] LABS: ALB/GLOB Ratio 0.6 RATIO (0.9-2.4); AST(SGOT) 10 U/L (15-37); Alanine Aminotransfer ALT/SGPT 21 U/L (13-56); Albumin, Serum 3.3 g/dL (3.2-5.0); Alkaline Phosphatase 145 U/L (45-117); Anion Gap 10 (5-15); BUN 40 mg/dL (7-18); BUN/Creat Ratio 22.7 RATIO (10-20); Calcium,Total 9.2 mg/dL (8.5-10.1); Chloride 107 mmol/L (98-107); Creatinine, Serum 1.76 mg/dL (0.55-1.02); EST Glomerular Filtration Rate 31 mL/min (>60); Est Glom Filt Rate - Afr Amer 37 mL/min (>60); Estimated Creatinine Clearance 24.87 ml/min; Globulin 5.1 g/dL (2.2-4.2); Glucose 145 mg/dL (74-106); Magnesium 2.3 mg/dL (1.6-2.6); Potassium 3.9 mmol/L (3.5-5.1); Protein, Total 8.4 g/dL (6.4-8.2); Sodium Level 139 mmol/L (136-145); Troponin-I HS 6.5 pg/mL (3.0-53.7)
[2020-08-09 17:33] LABS: Lactic Acid 2.3 mmol/L (0.4-1.9)
[2020-08-09 18:56] VITALS: BP 189/87; PULSE 94; RESP 20; TEMP 36.7; O2SAT 98
[2020-08-09 18:57] VITALS: O2SAT 94
--- NOTE | 2020-08-09 19:13 | CT_ITS ---
STUDY: CT CHEST WITHOUT CONTRAST REASON FOR EXAM: Female, 65 years old. Hypoxia, cough RADIATION DOSAGE (If Supplied By Facility): CTDIvol = ( 19.77 ) mGy, DLP = ( 790.29 ) mGycm TECHNIQUE: Transaxial imaging was performed without the administration of intravenous contrast material. Multiplanar coronal and sagittal images were reformatted. Individualized dose optimization techniques were used for this CT. COMPARISON: Chest radiograph of 08/09/[address] exam of 04/25/2020 FINDINGS: Stable noncalcified nodule in the anterior left upper lobe,. Fissural nodule at the base of the right upper lobe, multiple subcentimeter nodules of the anterior right upper lobe. Stable scattered bibasilar fibrotic changes. Negative for new consolidation, focal atelectasis or pleural effusion. Normal heart and pericardium. Coronary calcifications primarily left. Normal mediastinum. Normal hilar regions. Normal unenhanced pulmonary arteries. There is atherosclerotic calcification of the aortic arch with tortuosity and elongation of the aortic arch and descending thoracic aorta. Degenerative changes of the thoracic spine. Demineralized osseous structures. Status post right shoulder arthroplasty. No acute findings in the uppermost abdomen. CT/Chest without Contrast IMPRESSION: No acute cardiopulmonary findings or changes. Stable bilateral pulmonary nodules and stable bibasilar fibrotic changes without new consolidation, focal atelectasis, other infiltrates or pleural effusion. Normal cardiac size. Left coronary calcifications. Negative for pericardial effusion. Stable atherosclerotic changes of the aorta. No acute osseous findings. No acute findings in the uppermost abdomen. Electronically Signed: Flory Min MD at 20:34 EDT , Service support ,
[2020-08-09 20:56] LABS: Reflex Lactate? Y
[2020-08-09 20:57] VITALS: BP 161/88; PULSE 84; RESP 18; O2SAT 100
== END 2020-08-09 20:58 | disposition home or self-care (01) ==
PROVIDERS: Emergency Provider Emergency Medicine; PCP Family Medicine
DX: R00.2 Palpitations (principal); R05 Cough; I49.3 Ventricular premature depolarization; R91.1 Solitary pulmonary nodule; I70.0 Atherosclerosis of aorta; E11.51 Type 2 diabetes mellitus with diabetic peripheral angiopathy without gangrene; E78.5 Hyperlipidemia, unspecified; G47.00 Insomnia, unspecified; G47.33 Obstructive sleep apnea (adult) (pediatric); I11.0 Hypertensive heart disease with heart failure; I48.0 Paroxysmal atrial fibrillation; I50.32 Chronic diastolic (congestive) heart failure; K21.9 Gastro-esophageal reflux disease without esophagitis; Z79.01 Long term (current) use of anticoagulants; Z79.51 Long term (current) use of inhaled steroids; Z79.52 Long term (current) use of systemic steroids; Z86.14 Personal history of Methicillin resistant Staphylococcus aureus infection; Z87.891 Personal history of nicotine dependence; Z79.899 Other long term (current) drug therapy; J44.9 Chronic obstructive pulmonary disease, unspecified; Z86.711 Personal history of pulmonary embolism; Z86.718 Personal history of other venous thrombosis and embolism
CPT/HCPCS: 71046; 71250; 80053; 83605; 83735; 84484; 85025; 87426; 93005; 99284; J7030; A4216

== ENCOUNTER 2020-08-14 13:34 | Emergency (ER) | payer MEDICARE, OTHER, SELFPAY ==
[2020-08-14 13:36] VITALS: BP 130/47; PULSE 89; RESP 20; TEMP 37.1; O2SAT 97; BMI 43.9
[2020-08-14 13:40] VITALS: BP 130/47; PULSE 89; RESP 20; TEMP 37.1; O2SAT 97
--- NOTE | 2020-08-14 13:46 | RAD_ITS ---
STUDY: X-RAY CHEST REASON FOR EXAM: Female, 65 years old. Pneumonia TECHNIQUE: Single AP portable view of the chest. COMPARISON: Comparison is made with prior study dated 08/09/2020. FINDINGS: EKG electrodes are seen. The lungs are clear and expanded. The previously seen nodule in the right midlung is not well seen and this examination. There is no demonstrated pleural abnormality. There is moderate cardiac enlargement. Normal mediastinum and tami. Normal visualized pulmonary arteries. Normal visualized aortic arch and descending thoracic aorta. Normal visualized thoracic spine. Status post right shoulder replacement. There is no demonstrated abnormality of the visualized soft tissue structures of the upper abdomen. RAD/Chest 1 View (Portable) IMPRESSION: Cardiomegaly. Electronically Signed: Lance Back MD at 15:00 EDT , Service support ,
--- NOTE | 2020-08-14 13:46 | EKG12_ITS ---
Test Reason : COUGH Blood Pressure : / mmHG Vent. Rate : 084 BPM Atrial Rate : 084 BPM P-R Int : 158 ms QRS Dur : 078 ms QT Int : 350 ms P-R-T Axes : 043 -26 045 degrees QTc Int : 413 ms Sinus rhythm with occasional Premature ventricular complexes Otherwise normal ECG Confirmed by ROB CARMONA, SHAHRZAD ([id number]), clinical editor MAXWELL MILLS ([id number]) on 08/15/2020 1:06:20 PM Referred By: KELLI Confirmed By:SHAHRZAD RIVAS MD
[2020-08-14 13:54] VITALS: BP 110/62; PULSE 90; RESP 15; TEMP 37.7; O2SAT 97
--- NOTE | 2020-08-14 14:12 | EX.ED.VIS.UR ---
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 With a sputum culture was diagnosed last week with Pseudomonas pneumonia. Was started on Levaquin on Tuesday. She is now taken for 4 days. Been feeling worse the last 2 days with a fever of 101.5 associated nausea without vomiting and shaking chills. No diarrhea. No dysuria. No abdominal pain. She had both negative chest x-ray negative CT last week. She follow-up with her computer information systems professor Dr. Bazzi at that time. She is a known history of A. fib on Eliquis along with diabetes, COPD and renal insufficiency. Prior similar symptoms: Yes Recent Illness/Hospitalization: No ROS ROS ED ROS Narrative Cough, chills, muscle aches and mild nausea without vomiting. Review of Systems ROS Unobtainable: Denies due to encephalopathy Constitutional Constitutional ED: Reports chills and fever(s) Eyes Eyes: Denies change in vision ENT ENT ED: Reports sore throat; Denies ear pain Cardiovascular Cardiovascular: Denies chest pain Respiratory/Chest Respiratory/Chest: Reports cough and sputum Gastrointestinal Gastrointestinal: Reports nausea; Denies abdominal pain or vomiting Genitourinary Genitourinary ED: Denies dysuria or hematuria Musculoskeletal Musculoskeletal: Reports myalgias Integumentary Denies abscess or rash Neurologic Neurologic: Denies headache(s) Psychiatric Psychiatric: Denies depression Endocrine Endocrinology: Denies polyuria Hematologic/Lymphatic Hematologic/Lymphatic: Denies easy bruising Allergic/Immunologic Allergic/Immunologic ED: Denies urticaria [facility] Medical History Abnormal chest CT Acute bronchiolitis Acute respiratory failure ALEXYS (acute kidney injury) Allergic rhinitis Aspiration into airway Asthma Atrial fibrillation with rapid ventricular response Atrial tachycardia Benign essential HTN Cellulitis of right lower extremity Chronic diastolic heart failure Coarse tremors COLD (chronic obstructive lung disease) Diabetes mellitus DVT (deep venous thrombosis) Gastroesophageal reflux disease HCAP (healthcare-associated pneumonia) History of DVT (deep vein thrombosis) 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 Hx pulmonary embolism Hyperlipidemia Insomnia Lung nodule Morbid obesity MRSA pneumonia Obesity Obstructive sleep apnea Paroxysmal atrial fibrillation Paroxysmal atrial tachycardia Pneumonia Precordial chest pain Pulmonary embolism PVD (peripheral vascular disease) Right foot pain Severe sepsis Steroid myopathy Tachycardia Thrush, oral Umbilical hernia Venous thromboembolism (VTE) Weakness Home Medications cholecalciferol (vitamin D3) 10 mcg/drop (400 unit/drop) oral drops 2,000 unit PO DAILY 10/19/19 [History Last Taken Unknown] omega-3 fatty acids 1,000 mg capsule 1,000 mg PO DAILY 10/19/19 [History Last Taken Unknown] acidophilus-pectin, citrus 1 tab PO TID #90 tab 12/20/19 [Rx Last Taken Unknown] potassium chloride 20 meq PO DAILY #30 tab 12/20/19 [Rx Last Taken Unknown] levothyroxine 25 mcg tablet 25 mcg PO DAILY@0600 01/04/20 [History Last Taken Unknown] diltiazem HCl 180 mg capsule,extended release 24 hr 180 mg PO DAILY #90 cap 03/11/20 [Rx Last Taken Unknown] flecainide 50 mg tablet 50 mg PO BID #180 tab 03/11/20 [Rx Last Taken Unknown] fluticasone propionate 230 mcg-salmeterol 21 mcg/actuation HFA inhaler 2 puff INHALATION BID #3 device 03/11/20 [Rx Last Taken Unknown] furosemide 40 mg tablet 20 mg PO BID #90 tab 03/11/20 [Rx Last Taken Unknown] montelukast 10 mg tablet 10 mg PO QHS #90 tab 03/11/20 [Rx Last Taken Unknown] albuterol sulfate 2.5 mg INHALATION Q4H PRN #180 vial 03/17/20 [Rx Last Taken Unknown] apixaban 5 mg tablet 5 mg PO BID #180 tab 04/02/20 [Rx Last Taken Unknown] esomeprazole magnesium 40 mg capsule,delayed release 40 mg PO QAM cap 04/02/20 [History Last Taken Unknown] famotidine 40 mg tablet 40 mg PO QHS 04/02/20 [History Last Taken Unknown] azelastine 2 spray INTRANASAL BID PRN 08/09/20 [History Last Taken Unknown] cyclobenzaprine [Flexeril] 10 mg PO BID 08/09/20 [History Last Taken Unknown] ferrous sulfate 325 mg PO DAILY 08/09/20 [History Last Taken Unknown] levofloxacin 750 mg tablet 750 mg PO DAILY #10 tab 08/11/20 [Rx Last Taken Unknown] Allergy/AdvReac Type Severity Reaction Status Date / Time adhesive Allergy SKIN Verified 08/14/20 16:01 TEARS. PAPER TAPE OK azithromycin [From Zithromax] Allergy Rash Verified 08/14/20 13:35 cefuroxime sodium Allergy Rash Verified 08/14/20 13:35 [From Zinacef] clindamycin Allergy Hives Verified 08/14/20 13:35 nitrofurantoin Allergy Rash Verified 08/14/20 13:35 macrocrystalline [From Macrodantin] Sulfa (Sulfonamide Allergy Rash Verified 08/14/20 13:35 Antibiotics) atenolol AdvReac Severe Peripheal Verified 08/14/20 13:35 edema & cough metoprolol [From Toprol XL] AdvReac Severe Peripheral Verified 08/14/20 13:35 edema & cough duloxetine [From Cymbalta] AdvReac Intermediate made me Verified 08/14/20 13:35 feel really sick oxycodone HCl [From Percocet] AdvReac Vomiting Verified 08/14/20 13:35 STEROID AdvReac INDUCED Uncoded 08/14/20 16:01 MYOPATHY Family History Mother Hypertension Diabetes Heart disease Pulmonary embolism Father Perforated ulcer Respiratory failure Sister Asthma Hypertension Surgical History H/O section H/O foot surgery H/O hernia repair H/O shoulder surgery H/O: hysterectomy History of cardioversion (~12/2016) History of left heart catheterization Social History Smoking Status: Former smoker quit date: 02/14/75 pack-years: 3 second hand exposure: No alcohol intake: never substance use type: does not use caffeine: No what type of physical activity do you participate in: none EXAM Physical Exam Narrative Exam Narrative: Older female appears ill. Vital signs are stable afebrile. Pulse ox 97%. Temperature 99.8. H EENT exam mild dry mucous memories. Neck nontender no lymphadenopathy. Lungs dry hacking cough. Coarse breath sounds. Heart regular rhythm rate about 90. Abdomen soft nontender normal bowel sounds no peritoneal signs. Moving all 4 extremities. No cellulitis. No hot or tender joints. Back nontender. Neurologically awake alert. Moving all 4 extremities. Const Vital Signs: 08/14/20 13:36 08/14/20 13:40 08/14/20 13:54 Temperature 98.8 F 98.8 F 99.8 F H Temperature Source Temporal Temporal Oral Pulse Rate 89 89 90 Respiratory Rate 20 H 20 H 15 Respiratory Effort Respiratory Depth Respiratory Pattern Blood Pressure 130/47 H 130/47 H 110/62 Blood Pressure Mean 74 74 78 Pulse Ox 97 97 97 Oxygen Delivery Method Room Air Room Air Room Air 08/14/20 14:23 08/14/20 15:39 Temperature 98.1 F Temperature Source Oral Pulse Rate 93 Respiratory Rate 21 H Respiratory Effort Normal Non-Labored Respiratory Depth Normal Respiratory Pattern Normal Blood Pressure 119/55 L Blood Pressure Mean 76 Pulse Ox 97 Oxygen Delivery Method Room Air Room Air Positive well nourished and well developed General Appearance ED: well developed HEENT Reports dry mucous membranes normocephalic and atraumatic Face and Sinus: Negative for sinus tenderness or facial tenderness External Ear: external ears normal Mouth ED: Yes dry mucous membranes Mouth: dry mucous membranes Eyes PERRL and EOMs intact bilaterally Neck no lymphadenopathy, supple, no meningeal signs and no JVD General: Negative for anterior neck swelling or lymphadenopathy Resp normal respiratory effort Resp Narrative: Coarse breath sounds with coughing. Cardio no murmurs Rate: regular rate Rhythm: regular rhythm GI non-tender, non-distended and no masses Inspection: Negative for abdominal distention Auscultation: normoactive bowel sounds Palpation: soft; Negative for tender or guarding Back/Spine no CVA tenderness and normal ROM General Back: Negative for CVA tenderness Cervical Spine: Negative for cervical spine tenderness Thoracic Spine / Upper Back: Negative for thoracic spinal tenderness Lumbar Spine / Lower Back: Negative for lumbar spinal tenderness Sacrum: Negative for tenderness Extremity normal to inspection and full ROM General Extremety ED: Negative for tenderness Neuro oriented x3 and CN's II-XII intact bilaterally Sensorium / Orientation: alert, oriented to person, oriented to place and oriented to time Motor Exam: strength 5/5 throughout Psych mental status grossly normal Skin Lesions: no lesions Rashes: no rashes MDM MDM MDM Narrative Medical decision making narrative: Older female recently diagnosed with Pseudomonas pneumonia on Levaquin feeling worse developing fever and chills. We put through a septic work-up. Treated with IV fluids. Most likely will need admission. Repeat exam patient is doing well at 5 PM. She and I discussed her labs are not significantly changed from prior. Chest x-ray shows no obvious pneumonia. The current antibiotic she is on may also cover potential UTI. She and I discussed coming in overnight for further evaluation and work-up. She feels comfortable and wants to be discharged to home with outpatient follow-up with her primary care physician Dr. Bismark Faust. She knows to return if worse. Lab Data Attestation: I reviewed the patient's lab results. Lab results narrative: CBC seven elevated white count 13.7. Hemoglobin 11.2 which is her baseline. No bands. PT/INR unremarkable. Electrolytes unremarkable gap of eight creatinine 1.45 which is along her baseline. Liver enzymes normal. Lactic acid 1.4. Urinalysis positive for nitrites and 10-25 white cells also 3+ bacteria which should be sent for culture consistent with a UTI but she is currently on antibiotic Levaquin which very possibly may cover the UTI also. Covid rapid antigen is negative. Chest x-ray unremarkable. Labs: Laboratory Results - last 24 hr 08/14/20 08/14/20 08/14/20 14:15 14:15 14:15 WBC 13.7 H RBC 3.80 L Hgb 11.2 L Hct 35.9 L MCV 94.5 MCH 29.5 MCHC 31.2 L RDW Std Deviation 50.0 H RDW Coeff of Lanre 14.5 Plt Count 350 MPV 9.4 Immature Gran % (Auto) 0.900 Neut % (Auto) 81.9 H Lymph % (Auto) 8.6 L [place] % (Auto) 7.9 Eos % (Auto) 0.6 Baso % (Auto) 0.1 Absolute Neuts (auto) 11.2 H Absolute Lymphs (auto) 1.18 Nucleated RBC % 0 PT 17.8 H INR 1.5 APTT 36.6 H Sodium 139 Potassium 4.1 Chloride 104 Carbon Dioxide 27.0 Anion Gap 8 BUN 25 H Creatinine 1.45 H Estim Creat Clear Calc 30.18 Est GFR (MDRD) Af Amer 46 L Est GFR (MDRD) Non-Af 38 L BUN/Creatinine Ratio 17.2 Glucose 119 H Lactic Acid Calcium 8.8 Total Bilirubin 0.60 AST 12 L ALT 27 Alkaline Phosphatase 142 H Total Protein 7.3 Albumin 2.9 L Globulin 4.4 H Albumin/Globulin Ratio 0.7 L Urine Color Urine Clarity Urine pH Ur Specific [place] Urine Protein Urine Glucose (UA) Urine Ketones Urine Occult Blood Urine Nitrite Urine Bilirubin Urine Urobilinogen Ur Leukocyte Esterase Urine RBC Urine WBC Ur Squamous Epith Cells Urine Bacteria Urine Mucus 08/14/20 08/14/20 14:15 15:55 WBC RBC Hgb Hct MCV MCH MCHC RDW Std Deviation RDW Coeff of [place] Plt Count MPV Immature Gran % (Auto) Neut % (Auto) Lymph % (Auto) [place] % (Auto) Eos % (Auto) Baso % (Auto) Absolute Neuts (auto) Absolute Lymphs (auto) Nucleated RBC % PT INR APTT Sodium Potassium Chloride Carbon Dioxide Anion Gap BUN Creatinine Estim Creat Clear Calc Est GFR (MDRD) Af Amer Est GFR (MDRD) Non-Af BUN/Creatinine Ratio Glucose Lactic Acid 1.4 Calcium Total Bilirubin AST ALT Alkaline Phosphatase Total Protein Albumin Globulin Albumin/Globulin Ratio Urine Color Straw Urine Clarity Sl Cldy Urine pH 5.0 Ur Specific [place] 1.020 Urine Protein Negative Urine Glucose (UA) Normal Urine Ketones Negative Urine Occult Blood Negative Urine Nitrite Positive H Urine Bilirubin Negative Urine Urobilinogen Normal Ur Leukocyte Esterase 500 H Urine RBC 0 SEEN Urine WBC 10-25 SEEN Ur Squamous Epith Cells 0-5 SEEN Urine Bacteria 3+ Urine Mucus 0 SEEN Radiography Diagnostic Testing: Radiology Impression Chest X-Ray 08/14/20 13:46 IMPRESSION: Cardiomegaly. Electronically Signed: Lance Back MD at 15:00 EDT , Service support , Portable chest x-ray one view interpreted by myself and the radiologist shows no acute abnormality. Chronic changes. Mild cardiomegaly. Unchanged from prior. Rhythm Strip Rhythm Strip: Sinus Rhythm Rate: 84 Ectopy: PVC(s) EKG Initial EKG: Attestation: I personally reviewed and interpreted this EKG as follows: Interpretation: Sinus Rhythm and No Acute Injury Pattern Comments: Normal sinus rhythm rate 84 no acute signs of [place] nor ischemia. Occasional PVCs. Prior: Unchanged Discharge Plan Triage Chief Complaint: Cough ED Provider: Thierno Wilson Dx/Rx/DC Orders Clinical Impression: Pneumonia due to Pseudomonas, Acute UTI Instructions: ED Pneumonia (Adult), ED CYSTITIS Female Adult Prescriptions: No Action omega-3 fatty acids [Fish Oil Concentrate] 1,000 mg capsule 1,000 mg PO DAILY RF: 0 cholecalciferol (vitamin D3) [Baby Vitamin D3] 10 mcg/drop (400 unit/drop) drops 2,000 unit PO DAILY RF: 0 famotidine 40 mg tablet 40 mg PO QHS RF: 0 esomeprazole magnesium [Nexium] 40 mg capsule,delayed release(DR/EC) 40 mg PO QAM RF: 0 apixaban 5 mg tablet 5 mg PO BID Qty: 180 RF: 4 levothyroxine 25 mcg tablet 25 mcg PO DAILY@0600 RF: 0 acidophilus-pectin, citrus 1 TABLET tablet 1 tab PO TID Qty: 90 RF: 0 potassium chloride 20 MEQ tablet 20 meq PO DAILY Qty: 30 RF: 0 ferrous sulfate 325 MG tablet 325 mg PO DAILY RF: 0 azelastine 137 mcg (0.1 %) aerosol,spray 2 spray INTRANASAL BID PRN (Reason: allergies) RF: 0 cyclobenzaprine [Flexeril] 10 mg Tablet 10 mg PO BID RF: 0 Advair HFA 230-21 mcg/actuation HFA aerosol inhaler 2 puff INHALATION BID Qty: 3 RF: 11 montelukast 10 mg tablet 10 mg PO QHS Qty: 90 RF: 11 diltiazem HCl 180 mg capsule,extended release 24hr 180 mg PO DAILY Qty: 90 RF: 3 flecainide 50 mg tablet 50 mg tablet 50 mg PO BID Qty: 180 RF: 3 furosemide 40 mg tablet 20 mg PO BID Qty: 90 RF: 3 albuterol sulfate 2.5 mg /3 mL (0.083 %) solution for nebulization 2.5 mg INHALATION Q4H PRN Qty: 180 RF: 6 levofloxacin 750 mg tablet 750 mg PO DAILY Qty: 10 RF: 0 Primary Care Provider: Ervin Donnelly Referrals: Ervin Donnelly MD [Primary Care Provider] - 3-5 Days Activity Restrictions/Additional Instructions: Continue your current antibiotic as prescribed. Plenty of fluids and rest. You may also have a urinary tract infection your current antibiotic Levaquin may cover that. Your primary care physician can follow-up with the urine culture. Return if feeling worse. Tylenol for fever. Disposition Disposition: Home, Self Care
[2020-08-14] MEDS: 0.9% Normal Saline 1,000 ML 999 ML IV (14:14)
[2020-08-14 14:23] VITALS: O2SAT 98
[2020-08-14 14:26] LABS: Absolute Lymphocyte Count 1.18 X10^3/uL (0.83-4.51); Absolute Neutrophil Count 11.2 X10^3/uL (2.0-7.7); Basophil# 0.01 X10^3/uL; Basophil% 0.1 % (0-1); Eosinophil# 0.08 X10^3/uL; Eosinophils% 0.6 % (0-5); Hematocrit 35.9 % (37-47); Hemoglobin 11.2 g/dL (12.0-15.0); Lymphocyte # 1.18 X10^3/ul (0.83-4.51); Lymphocyte % 8.6 % (19-41); Mean Corp Hgb Conc 31.2 g/dL (32-36); Mean Corpuscular Hgb 29.5 pg (27.0-32.0); Mean Corpuscular Volume 94.5 fL (81-99); Mean Platelet Vol. 9.4 fl (6.2-12.0); Monocyte# 1.09 X10^3/uL; Monocyte% 7.9 % (0-10); NRBC Flagged by Analyzer 0 % (0-5); Neutrophil # 11.24 X10^3/uL (2.7-7.7); Neutrophil % 81.9 % (47-70); Platelet Count 350 K/mm3 (150-450); RBC Distribution Width CV 14.5 % (11.6-14.6); White Blood Count 13.7 K/mm3 (4.4-11.0)
[2020-08-14 14:34] LABS: International Normalized Ratio 1.5; Prothrombin Time (Protime)PT. 17.8 SECONDS (11.7-14.9)
[2020-08-14 14:35] LABS: Partial Thromboplast Time 36.6 Seconds (24.1-36.2)
[2020-08-14 14:43] LABS: ALB/GLOB Ratio 0.7 RATIO (0.9-2.4); AST(SGOT) 12 U/L (15-37); Alanine Aminotransfer ALT/SGPT 27 U/L (13-56); Albumin, Serum 2.9 g/dL (3.2-5.0); Alkaline Phosphatase 142 U/L (45-117); Anion Gap 8 (5-15); BUN 25 mg/dL (7-18); BUN/Creat Ratio 17.2 RATIO (10-20); Calcium,Total 8.8 mg/dL (8.5-10.1); Chloride 104 mmol/L (98-107); Creatinine, Serum 1.45 mg/dL (0.55-1.02); EST Glomerular Filtration Rate 38 mL/min (>60); Est Glom Filt Rate - Afr Amer 46 mL/min (>60); Estimated Creatinine Clearance 30.18 ml/min; Globulin 4.4 g/dL (2.2-4.2); Glucose 119 mg/dL (74-106); Potassium 4.1 mmol/L (3.5-5.1); Protein, Total 7.3 g/dL (6.4-8.2); Sodium Level 139 mmol/L (136-145)
[2020-08-14 14:46] LABS: Lactic Acid 1.4 mmol/L (0.4-1.9)
[2020-08-14 15:39] VITALS: BP 119/55; PULSE 93; RESP 21; TEMP 36.7; O2SAT 97
[2020-08-14 16:01] LABS: Mucous, Urine 0 SEEN /hpf (<or=2+); Red Blood Cells-Urine 0 SEEN /hpf (0-5)
[2020-08-14 16:08] LABS: Color, Urine Straw (Yellow); Glucose, Dipstick Normal (Normal); Ketone-Dipstick Negative (Negative); Leukocyte Esterase-Dipstick 500 /ul (Negative); Nitrite-Dipstick Positive (Negative); Occult Blood-Urine Negative /ul (Negative); Protein-Dipstick Negative (Negative); Urine Bilirubin Dipstick Negative (Negative); Urine Urobilinogen Normal (Normal)
[2020-08-14 16:38] LABS: Squamous Epithelial Cells - UA 0-5 SEEN /hpf (5-10); Urine Clarity Sl Cldy (Clear); White Blood Cells 10-25 SEEN /hpf (0-5)
[2020-08-14 16:39] LABS: Bacteria 3+ /hpf (None Seen)
[2020-08-14 17:29] VITALS: BP 138/67; PULSE 90; RESP 20; O2SAT 96
== END 2020-08-14 17:31 | disposition home or self-care (01) ==
PROVIDERS: Emergency Provider Emergency Medicine; PCP Family Medicine
DX: J15.1 Pneumonia due to Pseudomonas (principal); N39.0 Urinary tract infection, site not specified; I51.7 Cardiomegaly; Z87.891 Personal history of nicotine dependence; I48.91 Unspecified atrial fibrillation; J44.9 Chronic obstructive pulmonary disease, unspecified; E11.9 Type 2 diabetes mellitus without complications; Z79.01 Long term (current) use of anticoagulants; Z79.51 Long term (current) use of inhaled steroids; Z79.899 Other long term (current) drug therapy
CPT/HCPCS: 71045; 80053; 81001; 83605; 85025; 85610; 85730; 87040; 87077; 87086; 87088; 87186; 87426; 93005; 99284; J7030; A4216

== ENCOUNTER → 2020-08-19 15:58 | Outpatient (CLI) | payer MEDICARE, OTHER, SELFPAY ==
[2020-08-14 13:36] VITALS: BMI 43.9
--- NOTE | 2020-08-19 16:01 | VDLE_ITS ---
Reason For Study: swelling Procedure LEFT This is a venous duplex using B-mode, color GSV is normal. flow and spectral Doppler. CFV is compressible, spontaneous, phasic, Exam performed in department. competent, and demonstrates normal The exam was abbreviated due to the COVID 19 augmentation. protocol. FV is compressible, spontaneous, phasic, The exam was diagnostic. competent and demonstrates normal A preliminary report was called and/or faxed augmentation. to Dr. Morrow. POP V is compressible, spontaneous, phasic, competent and demonstrates normal augmentation. T/P Trunk is compressible. PTV is compressible. LT PerV is compressible. VL/Venous Duplex US, Unilateral Interpretation Summary Deep veins of the left lower extremity are patent and compressible segmentally. There is no evidence of left lower extremity deep vein thrombosis. Valvular competence appears intac t within the proximal deep venous system on the left . The left great saphenous vein appears patent a nd compressible segmentally. Ordering Physician: Juan Morrow Performed By: Fortino Valdovinos RVT
[2020-08-19 17:35] LABS: D-Dimer Quantitative (DVT/PE) 0.69 FEU/ug/m (0.27-0.49)
== END ==
PROVIDERS: PCP Family Medicine; Referring Provider Family Medicine; Visit Provider Family Medicine
DX: M79.89 Other specified soft tissue disorders (principal); R06.02 Shortness of breath; J18.9 Pneumonia, unspecified organism; L03.116 Cellulitis of left lower limb; Z87.891 Personal history of nicotine dependence; Z86.718 Personal history of other venous thrombosis and embolism; Z86.711 Personal history of pulmonary embolism; Z86.14 Personal history of Methicillin resistant Staphylococcus aureus infection
CPT/HCPCS: 36415; 71275; 80048; 84484; 85025; 85379; 93005; 93971; 96360; 99284; J7030; Q9967; A4216

== ENCOUNTER 2020-08-19 21:38 | Emergency (ER) | payer MEDICARE, OTHER, SELFPAY ==
[2020-08-19 21:39] VITALS: BP 135/91; PULSE 126; RESP 22; TEMP 37.1; O2SAT 91; BMI 45.5
--- NOTE | 2020-08-19 22:06 | CT_ITS ---
STUDY: CTA CHEST REASON FOR EXAM: Female, 65 years old. positive dimer RADIATION DOSAGE (If Supplied By Facility): CTDIvol = ( 19.71 ) mGy, DLP = ( 523.01 ) mGycm TECHNIQUE: The examination was performed with the intravenous administration of IV 100mL [id number]-370. Post-processing of the angiographic images was performed, with multiplanar reformation and 3D reconstruction. Individualized dose optimization techniques were used for this CT. COMPARISON: CT chest dated 08/09/[address] chest dated 12/09/2017 FINDINGS: Normal enhancement of the main pulmonary artery and right and left pulmonary arteries. Normal enhancement of the bilateral peripheral pulmonary arteries. There is no demonstrated pulmonary embolism. Normal thoracic aorta and visualized great vessels. There is no demonstrated aortic dissection. Normal heart and pericardium. Normal mediastinum. Normal hilar regions. Normal visualized trachea and bronchi. The lungs are well expanded. Spiculated mass in the right middle lobe measuring 2.2 x 1.5 cm. Patchy infiltrate in the left lung base suggesting infection. Lungs are otherwise clear. Additional nodule in the left upper lobe which is spiculated measuring 7.4 mm. Normal pleura. Normal chest wall structures. There are degenerative changes of thoracic spine. Normal visualized upper abdomen. CT/CTA Chest W/WO Contrast IMPRESSION: Negative for pulmonary embolism. Negative for thoracic aortic dissection. Left lung base pneumonia. Spiculated nodules however, seemingly stable since 2018. Electronically Signed: Pawan Bear DO at 0:08 EDT Tel , Service support ,
--- NOTE | 2020-08-19 22:06 | EKG12_ITS ---
Test Reason : DYSRHYTHMIA Blood Pressure : / mmHG Vent. Rate : 095 BPM Atrial Rate : 095 BPM P-R Int : 150 ms QRS Dur : 072 ms QT Int : 344 ms P-R-T Axes : -08 -26 052 degrees QTc Int : 432 ms Normal sinus rhythm Normal ECG Confirmed by ROB CARMONA, SHAHRZAD ([id number]), film editor supervisor MELANI DENG ([id number]) on 08/20/2020 2:25:29 PM Referred By: MR Confirmed By:SHAHRZAD RIVAS MD
[2020-08-19] MEDS: 0.9% Normal Saline 1,000 ML 999 ML IV (22:21)
[2020-08-19 22:28] LABS: Absolute Lymphocyte Count 1.64 X10^3/uL (0.83-4.51); Absolute Neutrophil Count 7.4 X10^3/uL (2.0-7.7); Basophil# 0.03 X10^3/uL; Basophil% 0.3 % (0-1); Eosinophil# 0.12 X10^3/uL; Eosinophils% 1.2 % (0-5); Hematocrit 33.5 % (37-47); Hemoglobin 10.3 g/dL (12.0-15.0); Lymphocyte # 1.64 X10^3/ul (0.83-4.51); Mean Corp Hgb Conc 30.7 g/dL (32-36); Mean Corpuscular Hgb 29.2 pg (27.0-32.0); Mean Corpuscular Volume 94.9 fL (81-99); Mean Platelet Vol. 9.2 fl (6.2-12.0); Monocyte# 0.93 X10^3/uL; Monocyte% 9.1 % (0-10); NRBC Flagged by Analyzer 0 % (0-5); Neutrophil # 7.44 X10^3/uL (2.7-7.7); Neutrophil % 72.3 % (47-70); Platelet Count 338 K/mm3 (150-450); RBC Distribution Width CV 14.5 % (11.6-14.6); RBC Distribution Width SD 50.5 fl (35.1-43.9); Red Blood Count 3.53 M/mm3 (4.2-5.4); White Blood Count 10.3 K/mm3 (4.4-11.0)
[2020-08-19 22:46] LABS: Anion Gap 8 (5-15); BUN 24 mg/dL (7-18); BUN/Creat Ratio 14.5 RATIO (10-20); Chloride 107 mmol/L (98-107); Creatinine, Serum 1.65 mg/dL (0.55-1.02); EST Glomerular Filtration Rate 33 mL/min (>60); Est Glom Filt Rate - Afr Amer 40 mL/min (>60); Estimated Creatinine Clearance 25.31 ml/min; Glucose 122 mg/dL (74-106); Potassium 3.7 mmol/L (3.5-5.1); Sodium Level 140 mmol/L (136-145); Troponin-I HS 6.2 pg/mL (3.0-53.7)
--- NOTE | 2020-08-19 23:35 | EDS_ITS ---
HPI History of Present Illness Chief Complaint: Shortness of Breath Narrative Narrative: Patient is presenting for evaluation secondary to some shortness of breath. Patient is presenting upon the recommendation of her primary care physician who stated that she had a positive D-dimer and she was going to need a CT angiogram of the chest. Patient has an underlying history of COPD, she sees pulmonology. Patient states that around a week and a half ago she presented to the pulmonary office with a cough and was noted to have a positive sputum culture for Pseudomonas and was placed on Levaquin. Patient presented to the emergency department later last week on and was noted to have a urinary tract infection and was continued on Levaquin pending a culture. Patient's culture came back as Levaquin resistant for her urine so she was also started on Omnicef today. Patient developed today some left lower extremity redness and swelling. She had a duplex ultrasound today as an outpatient that was negative, but had a D-dimer that was positive that she is presenting to the emergency department for. Patient does states that she has exertional dyspnea but not really at rest. She endorses a cough that intermittently will have some blood streaks. She has a past history of blood clots and A. fib and it has been on Eliquis for 7 years. She denies any chest pain associated with this. Review of systems otherwise negative. 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 Hx pulmonary embolism Hyperlipidemia Insomnia Lung nodule Morbid obesity MRSA pneumonia Obesity Obstructive sleep apnea Paroxysmal atrial fibrillation Paroxysmal atrial tachycardia Pneumonia Precordial chest pain Pulmonary embolism PVD (peripheral vascular disease) Right foot pain Severe sepsis Steroid myopathy Tachycardia Thrush, oral Umbilical hernia Venous thromboembolism (VTE) Weakness Home Medications cholecalciferol (vitamin D3) 10 mcg/drop (400 unit/drop) oral drops 2,000 unit PO DAILY 10/19/19 [History Last Taken Unknown] omega-3 fatty acids 1,000 mg capsule 1,000 mg PO DAILY 10/19/19 [History Last Taken Unknown] acidophilus-pectin, citrus 1 tab PO TID #90 tab 12/20/19 [Rx Last Taken Unknown] potassium chloride 20 meq PO DAILY #30 tab 12/20/19 [Rx Last Taken Unknown] levothyroxine 25 mcg tablet 25 mcg PO DAILY@0600 01/04/20 [History Last Taken Unknown] diltiazem HCl 180 mg capsule,extended release 24 hr 180 mg PO DAILY #90 cap 03/11/20 [Rx Last Taken Unknown] flecainide 50 mg tablet 50 mg PO BID #180 tab 03/11/20 [Rx Last Taken Unknown] fluticasone propionate 230 mcg-salmeterol 21 mcg/actuation HFA inhaler 2 puff INHALATION BID #3 device 03/11/20 [Rx Last Taken Unknown] furosemide 40 mg tablet 20 mg PO BID #90 tab 03/11/20 [Rx Last Taken Unknown] montelukast 10 mg tablet 10 mg PO QHS #90 tab 03/11/20 [Rx Last Taken Unknown] albuterol sulfate 2.5 mg INHALATION Q4H PRN #180 vial 03/17/20 [Rx Last Taken Unknown] apixaban 5 mg tablet 5 mg PO BID #180 tab 04/02/20 [Rx Last Taken Unknown] esomeprazole magnesium 40 mg capsule,delayed release 40 mg PO QAM cap 04/02/20 [History Last Taken Unknown] famotidine 40 mg tablet 40 mg PO QHS 04/02/20 [History Last Taken Unknown] azelastine 2 spray INTRANASAL BID PRN 08/09/20 [History Last Taken Unknown] cyclobenzaprine [Flexeril] 10 mg PO BID 08/09/20 [History Last Taken Unknown] ferrous sulfate 325 mg PO DAILY 08/09/20 [History Last Taken Unknown] levofloxacin 750 mg tablet 750 mg PO DAILY #10 tab 08/11/20 [Rx Last Taken Unknown] Allergy/AdvReac Type Severity Reaction Status Date / Time adhesive Allergy SKIN Verified 08/19/20 21:41 TEARS. PAPER TAPE OK azithromycin [From Zithromax] Allergy Rash Verified 08/19/20 21:41 cefuroxime sodium Allergy Rash Verified 08/19/20 21:41 [From Zinacef] clindamycin Allergy Hives Verified 08/19/20 21:41 nitrofurantoin Allergy Rash Verified 08/19/20 21:41 macrocrystalline [From Macrodantin] Sulfa (Sulfonamide Allergy Rash Verified 08/19/20 21:41 Antibiotics) atenolol AdvReac Severe Peripheal Verified 08/19/20 21:41 edema & cough metoprolol [From Toprol XL] AdvReac Severe Peripheral Verified 08/19/20 21:41 edema & cough duloxetine [From Cymbalta] AdvReac Intermediate made me Verified 08/19/20 21:41 feel really sick oxycodone HCl [From Percocet] AdvReac Vomiting Verified 08/19/20 21:41 STEROID AdvReac INDUCED Uncoded 08/19/20 21:41 MYOPATHY Family History Mother Hypertension Diabetes Heart disease Pulmonary embolism Father Perforated ulcer Respiratory failure Sister Asthma Hypertension Surgical History H/O section H/O foot surgery H/O hernia repair H/O shoulder surgery H/O: hysterectomy History of cardioversion (~12/2016) History of left heart catheterization Social History Smoking Status: Former smoker quit date: 02/14/75 pack-years: 3 second hand exposure: No alcohol intake: never substance use type: does not use caffeine: No what type of physical activity do you participate in: none ROS ROS ED Constitutional Constitutional ED: Denies chills or fever(s) ENT ENT ED: Denies rhinorrhea Cardiovascular Cardiovascular: Denies chest pain Respiratory/Chest Respiratory/Chest: Reports cough and dyspnea Gastrointestinal Gastrointestinal: Denies abdominal pain, diarrhea, nausea or vomiting Genitourinary Genitourinary ED: Denies dysuria or hematuria Musculoskeletal Musculoskeletal: Denies back pain Integumentary Reports rash Neurologic Neurologic: Denies paresthesias or weakness Psychiatric Psychiatric: Denies depression Endocrine Endocrinology: Denies fatigue Allergic/Immunologic Allergic/Immunologic ED: Denies urticaria EXAM Physical Exam Const Vital Signs: 08/19/20 21:39 08/19/20 22:18 Temperature 98.7 F Temperature Source Temporal Pulse Rate 126 H Respiratory Rate 22 H Respiratory Effort Short of Breath Respiratory Depth Normal Respiratory Pattern Normal Blood Pressure 135/91 H Blood Pressure Mean 105 Pulse Ox 91 Oxygen Delivery Method Room Air Positive well nourished and well developed General Appearance ED: well developed and NAD HEENT Reports moist mucous membranes Negative for trauma or tenderness Eyes EOMs intact bilaterally Neck no lymphadenopathy, supple and no JVD Chest Wall inspection of chest normal Resp normal respiratory effort Auscultation: wheezes Cardio regular rate, regular rhythm, no murmurs and peripheral pulses 2+ throughout GI normal to inspection, nondistended, normoactive bowel sounds, non-tender and no masses Palpation: soft Back/Spine normal to inspection Extremity normal to inspection Extremity Narrative: Examination of the patient's left foot and ankle shows cellulitic changes with some warmth and erythema no lymphangitic streaking no some cutaneous emphysema no palpable cord normal pulses General Extremety ED: Yes edema; Negative for tenderness General Extremity: edema Neuro oriented x3 and no sensory deficits noted Sensorium / Orientation: alert Motor Exam: strength 5/5 throughout Psych mental status grossly normal Skin no rashes or lesions noted MDM MDM MDM Narrative Medical decision making narrative: Patient presented for evaluation due to a positive D-dimer test. Patient was notably tachycardic upon arrival she was not tachycardic when I examined her she states that this typically is because of her exertional dyspnea. Regardless, she does have a D-dimer that was elevated even when age-adjusted and she had tachycardia and some reports of hemoptysis so I did perform CT angiogram of the chest including lab work. CBC demonstrates a normal white blood cell count with a neutrophilic predominance. Chemistry shows the patient's chronic elevation of creatinine at 1.6 she was hydrated prior to her CT angiogram of the chest. Per radiology CT angiogram of the chest shows no evidence of pulmonary embolism but does show some stable spiculated nodules as well as a left lung base pneumonia presumptively the patient's Pseudomonas pneumonia which is currently being treated. This point patient has cellulitis of the left foot, as well as pneumonia. She is currently on Levaquin and Omnicef which should cover the 2 of those things. Patient was recommended to complete her course of those medications, she is almost done with her Levaquin so she was recommended that she needs to follow-up with Dr. Bazzi in pulmonology to potentially have that medication extended. Patient is comfortable with this disposition, she was discharged in stable condition. Lab Data Labs: Laboratory Results - last 24 hr 08/19/20 08/19/20 22:20 22:20 WBC 10.3 RBC 3.53 L Hgb 10.3 L Hct 33.5 L MCV 94.9 MCH 29.2 MCHC 30.7 L RDW Std Deviation 50.5 H RDW Coeff of Lanre 14.5 Plt Count 338 MPV 9.2 Immature Gran % (Auto) 1.100 H Neut % (Auto) 72.3 H Lymph % (Auto) 16.0 L [place] % (Auto) 9.1 Eos % (Auto) 1.2 Baso % (Auto) 0.3 Absolute Neuts (auto) 7.4 Absolute Lymphs (auto) 1.64 Nucleated RBC % 0 Sodium 140 Potassium 3.7 Chloride 107 Carbon Dioxide 25.0 Anion Gap 8 BUN 24 H Creatinine 1.65 H Estim Creat Clear Calc 25.31 Est GFR (MDRD) Af Amer 40 L Est GFR (MDRD) Non-Af 33 L BUN/Creatinine Ratio 14.5 Glucose 122 H Calcium 9.0 Troponin I High Sens 6.2 Radiography Diagnostic Testing: Radiology Impression Chest CTA 08/19/20 22:06 IMPRESSION: Negative for pulmonary embolism. Negative for thoracic aortic dissection. Left lung base pneumonia. Spiculated nodules however, seemingly stable since 2018. Electronically Signed: Pawan Bear DO at 0:08 EDT Tel , Service support , EKG Initial EKG: Attestation: I personally reviewed and interpreted this EKG as follows: (Sinus rhythm [address] segments normal T waves normal HI and QTc intervals no evidence of acute ischemia or arrhythmia) Discharge Plan Triage Chief Complaint: Shortness of Breath ED Provider: eRmi Gonzalez Dx/Rx/DC Orders Clinical Impression: Pneumonia, Cellulitis of left leg Instructions: ED Cellulitis, ED Pneumonia (Adult) Prescriptions: No Action omega-3 fatty acids [Fish Oil Concentrate] 1,000 mg capsule 1,000 mg PO DAILY RF: 0 cholecalciferol (vitamin D3) [Baby Vitamin D3] 10 mcg/drop (400 unit/drop) drops 2,000 unit PO DAILY RF: 0 famotidine 40 mg tablet 40 mg PO QHS RF: 0 esomeprazole magnesium [Nexium] 40 mg capsule,delayed release(DR/EC) 40 mg PO QAM RF: 0 apixaban 5 mg tablet 5 mg PO BID Qty: 180 RF: 4 levothyroxine 25 mcg tablet 25 mcg PO DAILY@0600 RF: 0 acidophilus-pectin, citrus 1 TABLET tablet 1 tab PO TID Qty: 90 RF: 0 potassium chloride 20 MEQ tablet 20 meq PO DAILY Qty: 30 RF: 0 ferrous sulfate 325 MG tablet 325 mg PO DAILY RF: 0 azelastine 137 mcg (0.1 %) aerosol,spray 2 spray INTRANASAL BID PRN (Reason: allergies) RF: 0 cyclobenzaprine [Flexeril] 10 mg Tablet 10 mg PO BID RF: 0 Advair HFA 230-21 mcg/actuation HFA aerosol inhaler 2 puff INHALATION BID Qty: 3 RF: 11 montelukast 10 mg tablet 10 mg PO QHS Qty: 90 RF: 11 diltiazem HCl 180 mg capsule,extended release 24hr 180 mg PO DAILY Qty: 90 RF: 3 flecainide 50 mg tablet 50 mg tablet 50 mg PO BID Qty: 180 RF: 3 furosemide 40 mg tablet 20 mg PO BID Qty: 90 RF: 3 albuterol sulfate 2.5 mg /3 mL (0.083 %) solution for nebulization 2.5 mg INHALATION Q4H PRN Qty: 180 RF: 6 levofloxacin 750 mg tablet 750 mg PO DAILY Qty: 10 RF: 0 Primary Care Provider: Ervin Donnelly Referrals: Ervin Donnelly MD [Primary Care Provider] - (Follow-up in 5 to 7 days to ensure resolution of your cellulitis) Pete Bazzi DO [STAFF PHYSICIAN] - (Follow-up in 1 to 2 days to potentially have your Levaquin prescription extended) Disposition Disposition: Home, Self Care
[2020-08-20 00:27] VITALS: BP 130/77; PULSE 88; RESP 18; O2SAT 94
== END 2020-08-20 00:30 | disposition home or self-care (01) ==
PROVIDERS: Emergency Provider Emergency Medicine; PCP Family Medicine
DX: J18.9 Pneumonia, unspecified organism (principal); L03.116 Cellulitis of left lower limb; Z87.891 Personal history of nicotine dependence; Z86.718 Personal history of other venous thrombosis and embolism; Z86.711 Personal history of pulmonary embolism; Z86.14 Personal history of Methicillin resistant Staphylococcus aureus infection
CPT/HCPCS: 71275; 80048; 84484; 85025; 93005; 96360; 99284; J7030; Q9967; A4216

== ENCOUNTER → 2020-08-21 14:25 | Outpatient (CLI) | payer MEDICARE, OTHER, SELFPAY ==
[2020-08-21 13:12] VITALS: BMI 45.3
[2020-08-21 14:56] LABS: BNP,B-Type NATRIURETIC PEPTIDE 34.1 pg/mL (0-100)
== END ==
PROVIDERS: PCP Family Medicine; Referring Provider Nurse Practitioner Acute Care; Visit Provider Nurse Practitioner Acute Care
DX: R06.02 Shortness of breath (principal)
CPT/HCPCS: 36415; 83880

== ENCOUNTER → 2020-09-11 14:12 | Outpatient (CLI) | payer MEDICARE, OTHER, SELFPAY ==
[2020-08-21 13:12] VITALS: BMI 45.3
[2020-09-11 15:18] LABS: Hematocrit 33.5 % (37-47); Hemoglobin 10.3 g/dL (12.0-15.0); Mean Corp Hgb Conc 30.7 g/dL (32-36); Mean Corpuscular Hgb 29.2 pg (27.0-32.0); Mean Corpuscular Volume 94.9 fL (81-99); Mean Platelet Vol. 9.6 fl (6.2-12.0); Platelet Count 450 K/mm3 (150-450); RBC Distribution Width CV 14.1 % (11.6-14.6); RBC Distribution Width SD 47.8 fl (35.1-43.9); Red Blood Count 3.53 M/mm3 (4.2-5.4); White Blood Count 7.4 K/mm3 (4.4-11.0)
[2020-09-11 15:59] LABS: ALB/GLOB Ratio 0.5 RATIO (0.9-2.4); AST(SGOT) 18 U/L (15-37); Alanine Aminotransfer ALT/SGPT 23 U/L (13-56); Albumin, Serum 2.9 g/dL (3.2-5.0); Alkaline Phosphatase 148 U/L (45-117); Anion Gap 8 (5-15); BUN 22 mg/dL (7-18); BUN/Creat Ratio 16.1 RATIO (10-20); Calcium,Total 9.1 mg/dL (8.5-10.1); Chloride 105 mmol/L (98-107); Creatinine, Serum 1.37 mg/dL (0.55-1.02); EST Glomerular Filtration Rate 41 mL/min (>60); Est Glom Filt Rate - Afr Amer 50 mL/min (>60); Globulin 5.4 g/dL (2.2-4.2); Glucose 107 mg/dL (74-106); Potassium 3.9 mmol/L (3.5-5.1); Protein, Total 8.3 g/dL (6.4-8.2); Sodium Level 137 mmol/L (136-145); Thyroid Stim Hormone (TSH) 2.07 uIU/mL (0.358-3.74)
== END ==
PROVIDERS: PCP Family Medicine; Referring Provider Family Medicine; Visit Provider Family Medicine
DX: R60.9 Edema, unspecified (principal); E03.9 Hypothyroidism, unspecified
CPT/HCPCS: 36415; 80053; 83880; 84443; 85027

== ENCOUNTER → 2020-09-17 12:33 | Outpatient (CLI) | payer MEDICARE, OTHER, SELFPAY ==
[2020-08-21 13:12] VITALS: BMI 45.3
[2020-09-17 16:04] LABS: Anion Gap 8 (5-15); BUN 27 mg/dL (7-18); BUN/Creat Ratio 21.4 RATIO (10-20); Calcium,Total 9.4 mg/dL (8.5-10.1); Chloride 101 mmol/L (98-107); Creatinine, Serum 1.26 mg/dL (0.55-1.02); EST Glomerular Filtration Rate 45 mL/min (>60); Est Glom Filt Rate - Afr Amer 55 mL/min (>60); Glucose 143 mg/dL (74-106); Sodium Level 136 mmol/L (136-145)
== END ==
PROVIDERS: PCP Family Medicine; Referring Provider Family Medicine; Visit Provider Family Medicine
DX: R60.9 Edema, unspecified (principal)
CPT/HCPCS: 36415; 80048

== ENCOUNTER 2020-09-19 09:32 | Inpatient (IN) | payer MEDICARE, OTHER, SELFPAY ==
[2020-08-21 13:12] VITALS: BMI 45.3
[2020-09-19] VITALS (21 sets, daily range): BP systolic 96–134; BP diastolic 57–83; PULSE 92–112; RESP 16–24; TEMP 37.2–39.6; O2SAT 88–100; BMI 46.7; BMI 45.9
--- NOTE | 2020-09-19 09:49 | EKG12_ITS ---
Test Reason : Blood Pressure : / mmHG Vent. Rate : 095 BPM Atrial Rate : 095 BPM P-R Int : 150 ms QRS Dur : 070 ms QT Int : 318 ms P-R-T Axes : 114 -26 039 degrees QTc Int : 399 ms Sinus rhythm with Premature supraventricular complexes Otherwise normal ECG Confirmed by LAURITA CARMONA, HARDIK ([id number]), photographic editor MAXWELL MILLS ([id number]) on 09/23/2020 8:57:03 AM Referred By: ALCON Confirmed By:HARDIK SHAY MD
--- NOTE | 2020-09-19 09:52 | EX.ED.DYSGE1 ---
HPI History of Present Illness Chief Complaint: Lower Extremity Injury Informant: patient Onset/Context/Timing Onset: Days (3) Context: Gradual Onset Timing: Continuous Quality: sob Location: chest Current Severity: Moderate Maximum Severity: Moderate Worsened by: exertion Relieved by: nothing Associated Symptoms Associated Symptoms: fever 102 Narrative Narrative: Patient states she has a history of bronchiectasis and pulmonary MRSA and Pseudomonas colonization, with chronic respiratory symptoms/cough with acute worsening earlier this week, now fever 102 overnight and she presents because she is concerned she may be septic with 1 of these infections. As a side note/complaints, she has been having left hip pain that has been significantly limiting her ability to bear weight and get around, requiring her now to use a walker, since . She states she had no acute injury, it has been a gradual onset problem for which she is being scheduled for an MRI for her, but has not had it yet. She states as long as she is lying down she can move it okay except when she is upright, weightbearing is very painful and forward flexion of the thigh is very painful. She has had multiple CAT scans of her chest in the last several months, and her last course of antibiotics was Levaquin several weeks ago. No recent steroids, she has a history of steroid myopathy so avoids them. She is on Eliquis because of a history of atrial fibrillation, DVT, pulmonary embolus. [facility] Medical History Abnormal chest CT Acute bronchiolitis Acute respiratory failure ALEXYS (acute kidney injury) Allergic rhinitis Aspiration into airway Asthma Atrial fibrillation with rapid ventricular response Atrial tachycardia Benign essential HTN Bronchiectasis Cellulitis of right lower extremity Chronic diastolic heart failure Coarse tremors COLD (chronic obstructive lung disease) Diabetes mellitus DVT (deep venous thrombosis) Gastroesophageal reflux disease HCAP (healthcare-associated pneumonia) History of DVT (deep vein thrombosis) 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 Hx pulmonary embolism Hyperlipidemia Insomnia Lung nodule Morbid obesity MRSA pneumonia Obesity Obstructive sleep apnea Paroxysmal atrial fibrillation Paroxysmal atrial tachycardia Pneumonia Precordial chest pain Pulmonary embolism PVD (peripheral vascular disease) Right foot pain Severe sepsis Steroid myopathy Tachycardia Thrush, oral Umbilical hernia Venous thromboembolism (VTE) Weakness Home Medications cholecalciferol (vitamin D3) 10 mcg/drop (400 unit/drop) oral drops 2,000 unit PO DAILY 10/19/19 [History Last Taken Unknown] omega-3 fatty acids 1,000 mg capsule 1,000 mg PO DAILY 10/19/19 [History Last Taken Unknown] acidophilus-pectin, citrus 1 tab PO TID #90 tab 12/20/19 [Rx Last Taken Unknown] potassium chloride 20 meq PO DAILY #30 tab 12/20/19 [Rx Last Taken Unknown] levothyroxine 25 mcg tablet 25 mcg PO DAILY@0600 01/04/20 [History Last Taken Unknown] diltiazem HCl 180 mg capsule,extended release 24 hr 180 mg PO DAILY #90 cap 03/11/20 [Rx Last Taken Unknown] flecainide 50 mg tablet 50 mg PO BID #180 tab 03/11/20 [Rx Last Taken Unknown] fluticasone propionate 230 mcg-salmeterol 21 mcg/actuation HFA inhaler 2 puff INHALATION BID #3 device 03/11/20 [Rx Last Taken Unknown] montelukast 10 mg tablet 10 mg PO QHS #90 tab 03/11/20 [Rx Last Taken Unknown] albuterol sulfate 2.5 mg INHALATION Q4H PRN #180 vial 03/17/20 [Rx Last Taken Unknown] apixaban 5 mg tablet 5 mg PO BID #180 tab 04/02/20 [Rx Last Taken Unknown] esomeprazole magnesium 40 mg capsule,delayed release 40 mg PO QAM cap 04/02/20 [History Last Taken Unknown] famotidine 40 mg tablet 40 mg PO QHS 04/02/20 [History Last Taken Unknown] azelastine 2 spray INTRANASAL BID PRN 08/09/20 [History Last Taken Unknown] ferrous sulfate 325 mg PO DAILY 08/09/20 [History Last Taken Unknown] furosemide 40 mg PO BID 09/19/20 [History Last Taken Unknown] hydrocodone-acetaminophen [Vicodin] 1 tab PO Q6H PRN 09/19/20 [History Last Taken Unknown] Allergy/AdvReac Type Severity Reaction Status Date / Time adhesive Allergy SKIN Verified 09/19/20 09:36 TEARS. PAPER TAPE OK azithromycin [From Zithromax] Allergy Rash Verified 09/19/20 09:36 cefuroxime sodium Allergy Rash Verified 09/19/20 09:36 [From Zinacef] clindamycin Allergy Hives Verified 09/19/20 09:36 nitrofurantoin Allergy Rash Verified 09/19/20 09:36 macrocrystalline [From Macrodantin] Sulfa (Sulfonamide Allergy Rash Verified 09/19/20 09:36 Antibiotics) atenolol AdvReac Severe Peripheal Verified 09/19/20 09:36 edema & cough metoprolol [From Toprol XL] AdvReac Severe Peripheral Verified 09/19/20 09:36 edema & cough duloxetine [From Cymbalta] AdvReac Intermediate made me Verified 09/19/20 09:36 feel really sick oxycodone HCl [From Percocet] AdvReac Vomiting Verified 09/19/20 09:36 STEROID AdvReac INDUCED Uncoded 09/19/20 09:36 MYOPATHY Family History Mother Hypertension Diabetes Heart disease Pulmonary embolism Father Perforated ulcer Respiratory failure Sister Asthma Hypertension Surgical History H/O section H/O foot surgery H/O hernia repair H/O shoulder surgery H/O: hysterectomy History of cardioversion (~12/2016) History of left heart catheterization Social History Smoking Status: Former smoker quit date: 02/14/75 pack-years: 3 second hand exposure: No alcohol intake: never substance use type: does not use caffeine: No what type of physical activity do you participate in: none ROS ROS ED Constitutional Constitutional ED: Reports chills, fever(s) and malaise Eyes Eyes: Denies change in vision or diplopia ENT ENT ED: Denies rhinorrhea or sore throat Cardiovascular Cardiovascular: Denies chest pain or palpitations Respiratory/Chest Respiratory/Chest: Reports as per HPI, cough and dyspnea Gastrointestinal Gastrointestinal: Reports nausea; Denies abdominal pain, diarrhea or vomiting Genitourinary Genitourinary ED: Denies dysuria or hematuria Musculoskeletal Musculoskeletal: Reports as per HPI and extremity pain; Denies back pain or neck pain Integumentary Denies abscess or rash Neurologic Neurologic: Denies headache(s), paresthesias or weakness Psychiatric Psychiatric: Denies anxiety or suicidal thoughts EXAM Physical Exam Const Vital Signs: 09/19/20 09:33 09/19/20 09:38 09/19/20 09:53 Temperature 102.5 F H 102.5 F H 102.1 F H Temperature Source Oral Oral Oral Pulse Rate 98 98 Respiratory Rate 24 H 24 H Respiratory Effort Short of Breath Respiratory Pattern Tachypnea Blood Pressure 134/83 H 134/83 H Blood Pressure Mean 100 100 Pulse Ox 97 97 Oxygen Delivery Method Room Air Room Air Room Air Oxygen Flow Rate (L/min) 09/19/20 10:12 09/19/20 10:36 09/19/20 11:00 Temperature 103.2 F H 101.9 F H Temperature Source Oral Oral Pulse Rate 96 112 H 107 H Respiratory Rate 24 H 16 18 Respiratory Effort Respiratory Pattern Tachypnea Blood Pressure 128/78 H 120/74 Blood Pressure Mean 94 89 Pulse Ox 94 94 Oxygen Delivery Method Room Air Room Air Oxygen Flow Rate (L/min) 09/19/20 11:15 09/19/20 11:16 09/19/20 12:00 Temperature 100.9 F H Temperature Source Oral Pulse Rate 107 H Respiratory Rate 20 H Respiratory Effort Respiratory Pattern Blood Pressure 96/57 L Blood Pressure Mean 70 Pulse Ox 88 95 100 Oxygen Delivery Method Room Air Nasal Cannula Nasal Cannula Oxygen Flow Rate (L/min) 2 2 09/19/20 12:26 09/19/20 13:00 09/19/20 13:32 Temperature 100.1 F H Temperature Source Oral Pulse Rate 94 Respiratory Rate 18 Respiratory Effort Respiratory Pattern Blood Pressure 105/70 Blood Pressure Mean 81 Pulse Ox 95 95 90 Oxygen Delivery Method Nasal Cannula Nasal Cannula Room Air Oxygen Flow Rate (L/min) 2 2 09/19/20 13:40 09/19/20 13:43 09/19/20 14:00 Temperature 100.9 F H Temperature Source Oral Pulse Rate 93 Respiratory Rate 18 Respiratory Effort Respiratory Pattern Blood Pressure 117/69 Blood Pressure Mean 85 Pulse Ox 88 95 100 Oxygen Delivery Method Room Air Nasal Cannula Nasal Cannula Oxygen Flow Rate (L/min) 2 2 Positive well nourished, well developed and obese General Appearance ED: well developed and NAD Nutritional Appearance: obese HEENT Reports moist mucous membranes normocephalic and atraumatic Eyes PERRL and EOMs intact bilaterally Neck full ROM and supple Resp Auscultation: rales bilateral base and wheezes expiratory wheezes and throughout Cardio regular rate, regular rhythm and no murmurs GI non-tender and non-distended Auscultation: normoactive bowel sounds Palpation: soft Back/Spine no CVA tenderness General Back: other FROM Extremity normal to inspection Extremity Narrative: At rest, painless internal and external rotation of the left hip, but patient has significant pain with hip flexion although she is able to do it in a limited fashion with supportive assistance. General Extremety ED: Negative for edema, pulses abnormal or tenderness General Extremity: Negative for edema or pulses abnormal Neuro oriented x3, CN's II-XII intact bilaterally and no sensory deficits noted Sensorium / Orientation: awake and alert Motor Exam: strength 5/5 throughout Psych mental status grossly normal Skin no rashes or lesions noted and no wounds MDM MDM MDM Narrative Medical decision making narrative: Chest x-ray showing no signs of infiltrate, chronic bronchiectasis-related findings noted. Patient is feeling a little less dyspneic after an aerosol, however afterwards she is hypoxic at 88% at rest. She is into the 90s on a 2 L nasal cannula. Left hip is hurting less with morphine, she was asking for another dose later which was given. Discussed with Dr. Marrero with pulmonary, and since the patient is not wanting steroids due to her other chronic issues, he supports admitting her for oxygen, antibiotics, and further treatment and evaluation. Lab Data Attestation: I reviewed the patient's lab results. Labs: Laboratory Results - last 24 hr 09/19/20 09/19/20 09/19/20 09:50 09:50 09:50 WBC 12.0 H RBC 3.64 L Hgb 10.6 L Hct 35.2 L MCV 96.7 MCH 29.1 MCHC 30.1 L RDW Std Deviation 50.9 H RDW Coeff of Lanre 14.4 Plt Count 481 H MPV 9.5 Immature Gran % (Auto) 0.600 Neut % (Auto) 82.3 H Lymph % (Auto) 8.8 L Ma[place]ick % (Auto) 7.4 Eos % (Auto) 0.7 Baso % (Auto) 0.2 Absolute Neuts (auto) 9.9 H Absolute Lymphs (auto) 1.06 Nucleated RBC % 0 Sodium 136 Potassium 4.1 Chloride 100 Carbon Dioxide 28.0 Anion Gap 8 BUN 28 H Creatinine 1.56 H Estim Creat Clear Calc 26.77 Est GFR (MDRD) Af Amer 43 L Est GFR (MDRD) Non-Af 35 L BUN/Creatinine Ratio 17.9 Glucose 156 H Lactic Acid 1.8 Calcium 9.7 Total Bilirubin 0.60 AST 17 ALT 25 Alkaline Phosphatase 170 H Total Protein 9.2 H Albumin 3.2 Globulin 6.0 H Albumin/Globulin Ratio 0.5 L Urine Color Urine Clarity Urine pH Ur Specific [place] Urine Protein Urine Glucose (UA) Urine Ketones Urine Occult Blood Urine Nitrite Urine Bilirubin Urine Urobilinogen Ur Leukocyte Esterase Urine RBC Urine WBC Ur Squamous Epith Cells Urine Bacteria Urine Mucus 09/19/20 12:21 WBC RBC Hgb Hct MCV MCH MCHC RDW Std Deviation RDW Coeff of [place]re Plt Count MPV Immature Gran % (Auto) Neut % (Auto) Lymph % (Auto) Maverick % (Auto) Eos % (Auto) Baso % (Auto) Absolute Neuts (auto) Absolute Lymphs (auto) Nucleated RBC % Sodium Potassium Chloride Carbon Dioxide Anion Gap BUN Creatinine Estim Creat Clear Calc Est GFR (MDRD) Af Amer Est GFR (MDRD) Non-Af BUN/Creatinine Ratio Glucose Lactic Acid Calcium Total Bilirubin AST ALT Alkaline Phosphatase Total Protein Albumin Globulin Albumin/Globulin Ratio Urine Color Yellow Urine Clarity Sl. Cloudy Urine pH 6.0 Ur Specific [place] 1.015 Urine Protein 15 H Urine Glucose (UA) Normal Urine Ketones Negative Urine Occult Blood 10 H Urine Nitrite Negative Urine Bilirubin Negative Urine Urobilinogen Normal Ur Leukocyte Esterase Negative Urine RBC 0-5 SEEN Urine WBC 0 SEEN Ur Squamous Epith Cells 0-5 SEEN Urine Bacteria 0 SEEN Urine Mucus 0 SEEN Radiography Chest X-Ray - ED: 1 View, Read by ED Physician, Chronic Changes and No Infiltrates Diagnostic Testing: Radiology Impression Chest X-Ray 09/19/20 10:25 IMPRESSION: Normal portable chest. Pending Final Proof Editing EKG Initial EKG: Attestation: I personally reviewed and interpreted this EKG as follows: Interpretation: Sinus Rhythm, No Acute Injury Pattern and Non-Specific ST Changes Prior EKG tracings: available for review Prior: Unchanged Discharge Plan Dx/Rx/DC Orders Clinical Impression: Acute lower respiratory tract infection, Bronchiectasis with acute exacerbation, Hypoxemia, Acute pain of left hip Disposition Disposition: Acute Care [facility]
[2020-09-19] MEDS: Ondansetron 4 MG/2 ML Vial IV (10:01)
[2020-09-19] MEDS: Morphine 4 MG/ML Syringe IV ×2 (10:03→15:22)
[2020-09-19 10:05] LABS: Absolute Lymphocyte Count 1.06 X10^3/uL (0.83-4.51); Absolute Neutrophil Count 9.9 X10^3/uL (2.0-7.7); Basophil# 0.03 X10^3/uL; Basophil% 0.2 % (0-1); Eosinophil# 0.08 X10^3/uL; Eosinophils% 0.7 % (0-5); Hematocrit 35.2 % (37-47); Hemoglobin 10.6 g/dL (12.0-15.0); Lymphocyte # 1.06 X10^3/ul (0.83-4.51); Lymphocyte % 8.8 % (19-41); Mean Corp Hgb Conc 30.1 g/dL (32-36); Mean Corpuscular Hgb 29.1 pg (27.0-32.0); Mean Corpuscular Volume 96.7 fL (81-99); Mean Platelet Vol. 9.5 fl (6.2-12.0); Monocyte# 0.89 X10^3/uL; Monocyte% 7.4 % (0-10); NRBC Flagged by Analyzer 0 % (0-5); Neutrophil # 9.91 X10^3/uL (2.7-7.7); Neutrophil % 82.3 % (47-70); Platelet Count 481 K/mm3 (150-450); RBC Distribution Width CV 14.4 % (11.6-14.6); RBC Distribution Width SD 50.9 fl (35.1-43.9); Red Blood Count 3.64 M/mm3 (4.2-5.4)
[2020-09-19] MEDS: Acetaminophen 500 MG Tablet 1000 MG PO (10:05)
[2020-09-19] MEDS: Ipratropium/Albuterol Sulfate 3 ML AMPUL.NEB INHALATION ×2 (10:12→19:16)
[2020-09-19] MEDS: Albuterol 2.5 MG/3 ML VIAL.NEB. INHALATION (10:12)
[2020-09-19 10:20] LABS: ALB/GLOB Ratio 0.5 RATIO (0.9-2.4); AST(SGOT) 17 U/L (15-37); Alanine Aminotransfer ALT/SGPT 25 U/L (13-56); Albumin, Serum 3.2 g/dL (3.2-5.0); Alkaline Phosphatase 170 U/L (45-117); Anion Gap 8 (5-15); BUN 28 mg/dL (7-18); BUN/Creat Ratio 17.9 RATIO (10-20); Calcium,Total 9.7 mg/dL (8.5-10.1); Chloride 100 mmol/L (98-107); Creatinine, Serum 1.56 mg/dL (0.55-1.02); EST Glomerular Filtration Rate 35 mL/min (>60); Est Glom Filt Rate - Afr Amer 43 mL/min (>60); Estimated Creatinine Clearance 26.77 ml/min; Glucose 156 mg/dL (74-106); Potassium 4.1 mmol/L (3.5-5.1); Protein, Total 9.2 g/dL (6.4-8.2); Sodium Level 136 mmol/L (136-145)
--- NOTE | 2020-09-19 10:25 | RAD_ITS ---
EXAM DESCRIPTION: PORTABLE AP CHEST CLINICAL HISTORY: 65 years Female, cough sob bronchiectasis cough sob bronchiectasis COMPARISON: Previous portable chest obtained on 08/14/2020 FINDINGS: A right humeral head prosthesis is noted in place The rest of the thorax is intact. The heart and mediastinum appear to be within normal limits. The lungs appear to be well areated without evidence of pneumonic consolidation or pleural effusion. RAD/Chest 1 View (Portable) IMPRESSION: Normal portable chest. Pending Final Proof Editing
[2020-09-19 10:36] LABS: Lactic Acid 1.8 mmol/L (0.4-1.9)
[2020-09-19 12:29] LABS: Bacteria 0 SEEN /hpf (None Seen); Mucous, Urine 0 SEEN /hpf (<or=2+); White Blood Cells 0 SEEN /hpf (0-5)
[2020-09-19 12:36] LABS: Color, Urine Yellow (Yellow); Glucose, Dipstick Normal (Normal); Ketone-Dipstick Negative (Negative); Leukocyte Esterase-Dipstick Negative /ul (Negative); Nitrite-Dipstick Negative (Negative); Occult Blood-Urine 10 /ul (Negative); Protein-Dipstick 15 mg/dl (Negative); Specific Gravity, Urine 1.015 (1.002-1.030); Urine Bilirubin Dipstick Negative (Negative); Urine Clarity Sl. Cloudy (Clear); Urine Urobilinogen Normal (Normal)
[2020-09-19 12:45] LABS: Red Blood Cells-Urine 0-5 SEEN /hpf (0-5); Squamous Epithelial Cells - UA 0-5 SEEN /hpf (5-10)
[2020-09-19] MEDS: levoFLOXacin IV 750 MG/150 ML BAG 100 MG IV (15:22)
[2020-09-19] MEDS: HYDROcodone Bitartrate/Apap 5/325 Tablet PO ×2 (16:53→22:53)
[2020-09-19] MEDS: Furosemide 40 MG Tablet PO (16:53)
--- NOTE | 2020-09-19 17:09 | PCM.HP.STD ---
HPI - General General Date of Admission: 09/19/20 HPI Narrative LAURA SERRANO, is a 65 F with a history of morbid obesity, bronchiectasis, asthma, atrial fibrillation and DVT PE. History of recurrent lower respiratory tract infections. 3 weeks ago treated with a course of Levaquin for the same. Presents to the hospital with several days history of cough productive of initially mucoid sputum but now somewhat purulent, shortness of breath, exertional dyspnea, fever and malaise. Patient noted to have osteoarthritis of the hips and lumbosacral spine and pain in the left hip but states that for the last few days left hip pain has significantly become worse making ambulation difficult and requiring the use of a walker. Oxygen saturation of 88% noted on room air. Chest CT showing left lower lobe infiltrates. [facility] Medical History (Updated 09/19/20 @ 17:[address] Denita Arenas MD) Abnormal chest CT Acute bronchiolitis Acute respiratory failure ALEXYS (acute kidney injury) Allergic rhinitis Aspiration into airway Asthma Atrial fibrillation with rapid ventricular response Atrial tachycardia Benign essential HTN Bronchiectasis Cellulitis of right lower extremity Chronic diastolic heart failure Coarse tremors COLD (chronic obstructive lung disease) Congestive heart failure (CHF) Diabetes mellitus DVT (deep venous thrombosis) Former smoker Gastroesophageal reflux disease HCAP (healthcare-associated pneumonia) High cholesterol History of DVT (deep vein thrombosis) 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 Hx pulmonary embolism Hyperlipidemia Hypertension Hypothyroidism Insomnia Kidney disease Lung nodule Morbid obesity MRSA pneumonia Obesity Obstructive sleep apnea Paroxysmal atrial fibrillation Paroxysmal atrial tachycardia Pneumonia Precordial chest pain Pulmonary embolism PVD (peripheral vascular disease) Right foot pain Severe sepsis Steroid myopathy Tachycardia Thrush, oral Umbilical hernia Venous thromboembolism (VTE) Weakness Home Medications potassium chloride 20 meq PO DAILY #30 tab 12/20/19 [Rx Last Taken 09/18/20] levothyroxine 25 mcg tablet 25 mcg PO DAILY@0600 01/04/20 [History Last Taken 09/18/20] diltiazem HCl 180 mg capsule,extended release 24 hr 180 mg PO DAILY #90 cap 03/11/20 [Rx Last Taken 09/18/20] fluticasone propionate 230 mcg-salmeterol 21 mcg/actuation HFA inhaler 2 puff INHALATION BID #3 device 03/11/20 [Rx Last Taken 09/18/20] montelukast 10 mg tablet 10 mg PO QHS #90 tab 03/11/20 [Rx Last Taken 09/18/20] albuterol sulfate 2.5 mg INHALATION Q4H PRN #180 vial 03/17/20 [Rx Last Taken 09/18/20] apixaban 5 mg tablet 5 mg PO BID #180 tab 04/02/20 [Rx Last Taken 09/18/20] esomeprazole magnesium 40 mg capsule,delayed release 40 mg PO QAM cap 04/02/20 [History Last Taken 09/18/20] famotidine 40 mg tablet 40 mg PO QHS 04/02/20 [History Last Taken 09/18/20] ferrous sulfate 325 mg PO DAILY 08/09/20 [History Last Taken 09/18/20] acidophilus-pectin, citrus 1 tablet PO BID 09/19/20 [History Last Taken 09/18/20] cholecalciferol (vitamin D3) 50 mcg PO DAILY 09/19/20 [History Last Taken 09/18/20] flecainide 50 mg PO BID 09/19/20 [History Last Taken 09/18/20] furosemide 40 mg PO BID 09/19/20 [History Last Taken 09/18/20] hydrocodone-acetaminophen [Vicodin] 1 tab PO Q6H PRN 09/19/20 [History Last Taken 09/19/20 04:00] ondansetron HCl 4 mg PO Q8H PRN 09/19/20 [History Last Taken 09/19/20 04:00] Allergy/AdvReac Type Severity Reaction Status Date / Time adhesive Allergy SKIN Verified 09/19/20 09:36 TEARS. PAPER TAPE OK azithromycin [From Zithromax] Allergy Rash Verified 09/19/20 09:36 cefuroxime sodium Allergy Rash Verified 09/19/20 09:36 [From Zinacef] clindamycin Allergy Hives Verified 09/19/20 09:36 nitrofurantoin Allergy Rash Verified 09/19/20 09:36 macrocrystalline [From Macrodantin] Sulfa (Sulfonamide Allergy Rash Verified 09/19/20 09:36 Antibiotics) atenolol AdvReac Severe Peripheal Verified 09/19/20 09:36 edema & cough metoprolol [From Toprol XL] AdvReac Severe Peripheral Verified 09/19/20 09:36 edema & cough duloxetine [From Cymbalta] AdvReac Intermediate made me Verified 09/19/20 09:36 feel really sick Corticosteroids AdvReac Other Verified 09/19/20 16:37 (Glucocorticoids) oxycodone HCl [From Percocet] AdvReac Vomiting Verified 09/19/20 09:36 Family History (Reviewed 08/22/20 @ 13:15 by Marie Langley UNDERGROUND DRILL OPERATOR, UNDERGROUND DRILL OPERATOR-C) Mother Hypertension Diabetes Heart disease Pulmonary embolism Father Perforated ulcer Respiratory failure Sister Asthma Hypertension Surgical History (Updated 09/19/20 @ 16:20 by Megan Zavala) H/O section H/O foot surgery H/O hernia repair H/O shoulder surgery H/O: hysterectomy History of appendectomy History of cardioversion (~12/2016) History of left heart catheterization S/P hysterectomy Social History Smoking Status: Former smoker quit date: 02/14/75 pack-years: 3 second hand exposure: No alcohol intake: never substance use type: does not use caffeine: No what type of physical activity do you participate in: none ROS ROS Narrative Denies any abdominal pain nausea vomiting. All other systems reviewed and essentially negative. Vital Signs Vital Signs Vital Signs: 09/19/20 09:33 09/19/20 09:38 09/19/20 09:53 Temperature 39.2 C H 39.2 C H 38.9 C H Temperature Source Oral Oral Oral Pulse Rate 98 98 Respiratory Rate 24 H 24 H Respiratory Effort Short of Breath Respiratory Depth Respiratory Pattern Tachypnea Blood Pressure 134/83 H 134/83 H Blood Pressure Mean 100 100 Blood Pressure Source Blood Pressure Position Blood Pressure Location Pulse Ox 97 97 Oxygen Delivery Method Room Air Room Air Room Air Oxygen Flow Rate (L/min) 09/19/20 10:12 09/19/20 10:36 09/19/20 11:00 Temperature 39.6 C H 38.8 C H Temperature Source Oral Oral Pulse Rate 96 112 H 107 H Respiratory Rate 24 H 16 18 Respiratory Effort Respiratory Depth Respiratory Pattern Tachypnea Blood Pressure 128/78 H 120/74 Blood Pressure Mean 94 89 Blood Pressure Source Blood Pressure Position Blood Pressure Location Pulse Ox 94 94 Oxygen Delivery Method Room Air Room Air Oxygen Flow Rate (L/min) 09/19/20 11:15 09/19/20 11:16 09/19/20 12:00 Temperature 38.3 C H Temperature Source Oral Pulse Rate 107 H Respiratory Rate 20 H Respiratory Effort Respiratory Depth Respiratory Pattern Blood Pressure 96/57 L Blood Pressure Mean 70 Blood Pressure Source Blood Pressure Position Blood Pressure Location Pulse Ox 88 95 100 Oxygen Delivery Method Room Air Nasal Cannula Nasal Cannula Oxygen Flow Rate (L/min) 2 2 09/19/20 12:26 09/19/20 13:00 09/19/20 13:32 Temperature 37.8 C H Temperature Source Oral Pulse Rate 94 Respiratory Rate 18 Respiratory Effort Respiratory Depth Respiratory Pattern Blood Pressure 105/70 Blood Pressure Mean 81 Blood Pressure Source Blood Pressure Position Blood Pressure Location Pulse Ox 95 95 90 Oxygen Delivery Method Nasal Cannula Nasal Cannula Room Air Oxygen Flow Rate (L/min) 2 2 09/19/20 13:40 09/19/20 13:43 09/19/20 14:00 Temperature 38.3 C H Temperature Source Oral Pulse Rate 93 Respiratory Rate 18 Respiratory Effort Respiratory Depth Respiratory Pattern Blood Pressure 117/69 Blood Pressure Mean 85 Blood Pressure Source Blood Pressure Position Blood Pressure Location Pulse Ox 88 95 100 Oxygen Delivery Method Room Air Nasal Cannula Nasal Cannula Oxygen Flow Rate (L/min) 2 2 09/19/20 15:00 09/19/20 15:26 09/19/20 15:27 Temperature 38.3 C H 37.2 C Temperature Source Oral Oral Pulse Rate 102 H 102 H Respiratory Rate 18 18 Respiratory Effort Respiratory Depth Respiratory Pattern Blood Pressure 122/72 H 122/72 H Blood Pressure Mean 88 88 Blood Pressure Source Blood Pressure Position Blood Pressure Location Pulse Ox 100 100 Oxygen Delivery Method Nasal Cannula Nasal Cannula Nasal Cannula Oxygen Flow Rate (L/min) 2 2 2 09/19/20 16:12 09/19/20 16:16 Temperature 38.6 C H Temperature Source Oral Pulse Rate 108 H Respiratory Rate 18 Respiratory Effort Normal Respiratory Depth Normal Respiratory Pattern Normal Blood Pressure 130/73 H Blood Pressure Mean 92 Blood Pressure Source Monitor Blood Pressure Position Semi-Fowlers Blood Pressure Location Right Forearm Pulse Ox 98 Oxygen Delivery Method Nasal Cannula Nasal Cannula Oxygen Flow Rate (L/min) 2 2 Weight Weight: 110.223 kg Body Mass Index (BMI) 45.9 Physical Exam Narrative General examination. Elderly man, in some painful distress, mildly ill-appearing, morbidly obese HEENT examination. Oral mucosa moist, head normocephalic Neck. Neck is supple Heart. First and second heart sounds heard. No murmurs. Lungs. Faint expiratory wheezing scattered. No crackles heard but slightly harsh breath sounds. Abdomen. Obese, nontender, no organomegaly. Extremities. Tenderness in the left hip anteriorly medially and posteriorly. Significantly restricted limitation due to pain. Neurological. Conscious alert and oriented x3, cranial nerves II through XII grossly intact. Power 5 out of 5 in all extremities. Gait not tested due to pain. Results Lab / Micro Data Result Diagrams: 09/19/20 09:50 09/19/20 09:50 Labs: Laboratory Results - last 24 hr 09/19/20 09:50: WBC 12.0 H, RBC 3.64 L, Hgb 10.6 L, Hct 35.2 L, MCV 96.7, MCH 29.1, MCHC 30.1 L, RDW Std Deviation 50.9 H, RDW Coeff of Lanre 14.4, Plt Count 481 H, MPV 9.5, Immature Gran % (Auto) 0.600, Neut % (Auto) 82.3 H, Lymph % (Auto) 8.8 L, [place] % (Auto) 7.4, Eos % (Auto) 0.7, Baso % (Auto) 0.2, Absolute Neuts (auto) 9.9 H, Absolute Lymphs (auto) 1.06, Nucleated RBC % 0 09/19/20 09:50: Sodium 136, Potassium 4.1, Chloride 100, Carbon Dioxide 28.0, Anion Gap 8, BUN 28 H, Creatinine 1.56 H, Estim Creat Clear Calc 26.77, Est GFR (MDRD) Af Amer 43 L, Est GFR (MDRD) Non-Af 35 L, BUN/Creatinine Ratio 17.9, Glucose 156 H, Calcium 9.7, Total Bilirubin 0.60, AST 17, ALT 25, Alkaline Phosphatase 170 H, Total Protein 9.2 H, Albumin 3.2, Globulin 6.0 H, Albumin/Globulin Ratio 0.5 L 09/19/20 09:50: Lactic Acid 1.8 09/19/20 12:21: Urine Color Yellow, Urine Clarity Sl. Cloudy, Urine pH 6.0, Ur Specific [place] 1.015, Urine Protein 15 H, Urine Glucose (UA) Normal, Urine Ketones Negative, Urine Occult Blood 10 H, Urine Nitrite Negative, Urine Bilirubin Negative, Urine Urobilinogen Normal, Ur Leukocyte Esterase Negative, Urine RBC 0-5 SEEN, Urine WBC 0 SEEN, Ur Squamous Epith Cells 0-5 SEEN, Urine Bacteria 0 SEEN, Urine Mucus 0 SEEN Micro: Microbiology 09/19/20 10:00 Mucosa - Nose SARS-CoV-2 Antigen (Rapid) - Final 09/19/20 10:00 Mucosa - Nose Influenza Types A,B Direct FA (DALILA) - Final Radiology Impression Chest X-Ray 09/19/20 10:25 IMPRESSION: Normal portable chest. Pending Final Proof Editing Assessment & Plan Assessment/Plan (1) Bronchiectasis with (acute) exacerbation: PLAN: Continue with IV antibiotics, inhaled bronchodilators, mucolytic's with inhaled and oral. Chest physiotherapy. Consult pulmonology. Patient gives a history of steroid-induced myopathy. Educated that a short course should be safe. Appears to have tolerated short courses in the recent past. We will defer use of steroids if indicated to pulmonology. Sputum culture. (2) Acute respiratory failure with hypoxia: PLAN: Likely secondary to #1 above. Continue supplemental oxygen. Expect improvement with resolution of the above. (3) Pain of left hip: PLAN: Acute on chronic left hip pain. Most likely osteoarthritis. Given recent marked worsening, will need to rule out either worsening of osteoarthritis or possible complication of avascular necrosis. We will do an x-ray of the hip. Further imaging if indicated based on results of the x-ray. Optimal pain management. Physical and completion of therapy. Charges/Coding Visit Charges Inpatient E&M: 02998 Init Hosp L3
--- NOTE | 2020-09-19 17:14 | RAD_ITS ---
STUDY: X-RAY - PELVIS AND LEFT HIP REASON FOR EXAM: Female, 65 years old. severe left hip pain TECHNIQUE: 3 views of the pelvis and hip. COMPARISON: 08/06/2020 FINDINGS: There is a non-specific bowel gas pattern. Normal visualized soft tissue structures. Normal bilateral iliac wings, sacroiliac joints and visualized sacrum. Normal bilateral superior and inferior pubic rami. Normal pubic symphysis. Normal bilateral ischial tuberosities. Normal visualized femoral head. Normal acetabulum. Normal hip joint. RAD/HIP, UNI W/ Pelvis 2-3 Views IMPRESSION: Normal x-ray examination of the pelvis and hip. Electronically Signed: Johnny Mo MD at 8:21 EDT Tel , Service support ,
[2020-09-19] MEDS: Budesonide Respules 0.5 MG/2 ML AMPUL.NEB. INHALATION (19:16)
[2020-09-19] MEDS: Acetylcysteine 800 MG/4 ML VIAL.NEB. 200 MG INHALATION (19:17)
[2020-09-19] MEDS: MELATONIN 10 MG TABLET PO (22:44)
[2020-09-19] MEDS: guaiFENesin 1,200 MG Tablet 1200 MG PO (22:44)
[2020-09-19] MEDS: Montelukast 10 MG Tablet PO (22:44)
[2020-09-19] MEDS: APIXABAN 5 MG TABLET PO (22:45)
[2020-09-19] MEDS: Flecainide 100 MG Tablet 50 MG PO (22:46)
[2020-09-19] MEDS: 0.9% Saline Lock 10 ML Syringe IV (22:53)
[2020-09-20] VITALS (14 sets, daily range): BP systolic 95–114; BP diastolic 46–58; PULSE 83–105; RESP 16–20; TEMP 36.7–38.3; O2SAT 86–98
[2020-09-20] MEDS: Ipratropium/Albuterol Sulfate 3 ML AMPUL.NEB INHALATION ×4 (01:42→18:58)
[2020-09-20] MEDS: Levothyroxine 25 MCG TABLET PO (04:02)
[2020-09-20] MEDS: HYDROcodone Bitartrate/Apap 5/325 Tablet PO ×2 (05:07→12:58)
[2020-09-20] MEDS: Acetylcysteine 800 MG/4 ML VIAL.NEB. 200 MG INHALATION (07:21)
--- NOTE | 2020-09-20 07:23 | EX.PCM.CONCC ---
Assessment & Plan Assessment/Plan (1) Bronchiectasis with (acute) exacerbation: (2) Chronic respiratory failure: QUALIFIERS: Respiratory failure complication: hypoxia Qualified Code(s): J96.11 - Chronic respiratory failure with hypoxia (3) GAGAN (obstructive sleep apnea): (4) Asthma: QUALIFIERS: Asthma severity: moderate Asthma persistence: persistent Asthma complication type: uncomplicated Qualified Code(s): J45.40 - Moderate persistent asthma, uncomplicated (5) Morbid obesity: PLAN: RECOMMENDATIONS: 1. Initiate Vanco and Zosyn pending cultures 2. Initiate Acapella therapy 3. Hold on systemic steroids for now. Okay to continue with Pulmicort 4. Wean oxygen as tolerated 5. Consider initiation of AVAPS with sleep if condition worsens IMPRESSIONS: 1. Acute exacerbation of bronchiectasis in the setting of chronic hypoxic respiratory failure Patient does have a history of MRSA and Pseudomonas on previous cultures. Patient would be at high risk for decompensation, but currently does not meet criteria for sepsis as there is no endorgan damage. Patient has been on 2 to 4 L of oxygen at baseline. We will continue with inhaled steroids at this time, but patient is very resistant to systemic steroids. She understands that this lack of steroids does alter from standard of care. S of pulmonary toileting. 2. Morbid obesity/GAGAN Patient should be on therapy for obstructive sleep apnea. Patient has been resistant to this in the past per office notes. If patient were to start to have difficulties overnight, AVAPS could be initiated. 3. Acute on chronic left hip pain Patient does have significant risk factors for osteoarthritis. We will continue with empiric antibiotics. Physical exam is not suggestive of a septic joint in my opinion. MRI as an inpatient likely not indicated at this time. 4. History of steroid myopathy/morbid obesity/A. fib/history of coagulopathy Complicates care, management, recovery and prognosis. Patient is very resistant to steroid therapy at this time. Patient will reconsider if condition deteriorates. Okay to continue with anticoagulation from my perspective. HPI Consult Data Date of Consult: 09/20/20 HPI Narrative HPI Narrative: LAURA SERRANO is a 65 F, with past medical history listed below and well-known to our office, who presents to [facility] on 09/19/2020 secondary to progressive shortness of breath and fever. Patient reportedly had no symptoms approximately 6 days prior and discussed with her PCP. Patient reports there were no interventions, but as the week went on she started to have worsening fevers and a productive cough. Patient states her fever was 102 ?F and she was concerned that she may develop sepsis. Patient had reported increased left hip pain and had reported using a walker since . Patient did not report any acute injury or fall. Patient has had an MRI scheduled for evaluation of the hip. Patient was last treated with Levaquin several weeks ago, but has a complete aversion to steroids given a history of steroid myopathy. Patient does take Eliquis secondary to a history of A. fib, DVT and PE. In the ER, patient was noted to be febrile at 102.5 ?F, but saturating well on room air at 97%. Blood pressure was adequate, but patient was tachycardic at times. Laboratory work-up showed a white blood cell count of 12, hemoglobin of 10.6 and platelet count of 481. Creatinine was at its baseline at 1.56 and lactate was within normal limits. LFT showed a slightly elevated alk phos and UA was within normal limits. Chest x-ray was unremarkable. Patient was admitted to the floor for further evaluations. Patient is well-known to our practice. Patient states she has noticed a change in her sputum from a thick white to a creamy yellow to green. Patient is not reporting any hemoptysis. Patient has had some hip pain, but states this is progressive and does not feel infected. Patient has noted some increased lower extremity swelling, but states that this is much better since being hospitalized. Patient uses oxygen as needed, but states that she has had to use it more often recently. Patient is not reporting any urinary symptoms, rashes or other joint pains. Review of systems otherwise negative from a constitutional, HEENT, respiratory, cardiovascular, GI, genitourinary, musculoskeletal, skin, neurologic, psychiatric and hematologic system unless stated above. [facility] Medical History (Updated 09/20/20 @ 07:[address] Antoni Marrero MD) Abnormal chest CT Acute bronchiolitis Acute respiratory failure ALEXYS (acute kidney injury) Allergic rhinitis Aspiration into airway Asthma Atrial fibrillation with rapid ventricular response Atrial tachycardia Benign essential HTN Bronchiectasis Cellulitis of right lower extremity Chronic diastolic heart failure Coarse tremors COLD (chronic obstructive lung disease) Congestive heart failure (CHF) Diabetes mellitus DVT (deep venous thrombosis) Former smoker Gastroesophageal reflux disease HCAP (healthcare-associated pneumonia) High cholesterol History of DVT (deep vein thrombosis) 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 Hx pulmonary embolism Hyperlipidemia Hypertension Hypothyroidism Insomnia Kidney disease Lung nodule Morbid obesity MRSA pneumonia Obesity Paroxysmal atrial fibrillation Paroxysmal atrial tachycardia Pneumonia Precordial chest pain Pulmonary embolism PVD (peripheral vascular disease) Right foot pain Severe sepsis Steroid myopathy Tachycardia Thrush, oral Umbilical hernia Venous thromboembolism (VTE) Weakness Home Medications potassium chloride 20 meq PO DAILY #30 tab 12/20/19 [Rx Last Taken 09/18/20] levothyroxine 25 mcg tablet 25 mcg PO DAILY@0600 01/04/20 [History Last Taken 09/18/20] diltiazem HCl 180 mg capsule,extended release 24 hr 180 mg PO DAILY #90 cap 03/11/20 [Rx Last Taken 09/18/20] fluticasone propionate 230 mcg-salmeterol 21 mcg/actuation HFA inhaler 2 puff INHALATION BID #3 device 03/11/20 [Rx Last Taken 09/18/20] montelukast 10 mg tablet 10 mg PO QHS #90 tab 03/11/20 [Rx Last Taken 09/18/20] albuterol sulfate 2.5 mg INHALATION Q4H PRN #180 vial 03/17/20 [Rx Last Taken 09/18/20] apixaban 5 mg tablet 5 mg PO BID #180 tab 04/02/20 [Rx Last Taken 09/18/20] esomeprazole magnesium 40 mg capsule,delayed release 40 mg PO QAM cap 04/02/20 [History Last Taken 09/18/20] famotidine 40 mg tablet 40 mg PO QHS 04/02/20 [History Last Taken 09/18/20] ferrous sulfate 325 mg PO DAILY 08/09/20 [History Last Taken 09/18/20] acidophilus-pectin, citrus 1 tablet PO BID 09/19/20 [History Last Taken 09/18/20] cholecalciferol (vitamin D3) 50 mcg PO DAILY 09/19/20 [History Last Taken 09/18/20] flecainide 50 mg PO BID 09/19/20 [History Last Taken 09/18/20] furosemide 40 mg PO BID 09/19/20 [History Last Taken 09/18/20] hydrocodone-acetaminophen [Vicodin] 1 tab PO Q6H PRN 09/19/20 [History Last Taken 09/19/20 04:00] ondansetron HCl 4 mg PO Q8H PRN 09/19/20 [History Last Taken 09/19/20 04:00] Allergy/AdvReac Type Severity Reaction Status Date / Time adhesive Allergy SKIN Verified 09/19/20 09:36 TEARS. PAPER TAPE OK azithromycin [From Zithromax] Allergy Rash Verified 09/19/20 09:36 cefuroxime sodium Allergy Rash Verified 09/19/20 09:36 [From Zinacef] clindamycin Allergy Hives Verified 09/19/20 09:36 nitrofurantoin Allergy Rash Verified 09/19/20 09:36 macrocrystalline [From Macrodantin] Sulfa (Sulfonamide Allergy Rash Verified 09/19/20 09:36 Antibiotics) atenolol AdvReac Severe Peripheal Verified 09/19/20 09:36 edema & cough metoprolol [From Toprol XL] AdvReac Severe Peripheral Verified 09/19/20 09:36 edema & cough duloxetine [From Cymbalta] AdvReac Intermediate made me Verified 09/19/20 09:36 feel really sick Corticosteroids AdvReac Other Verified 09/19/20 16:37 (Glucocorticoids) oxycodone HCl [From Percocet] AdvReac Vomiting Verified 09/19/20 09:36 Family History Mother Hypertension Diabetes Heart disease Pulmonary embolism Father Perforated ulcer Respiratory failure Sister Asthma Hypertension Surgical History H/O section H/O foot surgery H/O hernia repair H/O shoulder surgery H/O: hysterectomy History of appendectomy History of cardioversion (~12/2016) History of left heart catheterization S/P hysterectomy Social History Smoking Status: Former smoker quit date: 02/14/75 pack-years: 3 second hand exposure: No alcohol intake: never substance use type: does not use caffeine: No what type of physical activity do you participate in: none ROS ROS Narrative See HPI Physical Exam Const alert, oriented x3 and no apparent distress General Appearance: cooperative, well developed and appears older than stated age; Negative for in distress Nutritional Appearance: morbidly obese HEENT normocephalic, head/scalp atraumatic and moist oral mucous membranes Eyes PERRL and EOMs intact bilaterally Neck full ROM and no lymphadenopathy Chest inspection of chest normal Resp normal respiratory effort and no use of accessory muscles Resp Narrative: Rhonchi improved with cough Effort and Inspection: able to speak in complete sentences Auscultation: rhonchi and diminished lung sounds; Negative for rales or wheezes Percussion: Negative for dullness Cardio regular rate, S1 normal heart sound, S2 normal heart sound, no murmurs, no rub and no gallops Cardio Narrative: Distant heart sounds given body habitus in supine position Rhythm: abnormal rhythm irregularly irregular GI normal to inspection, nondistended, normoactive bowel sounds no CVA tenderness Extremity Extremity Narrative: Reasonable range of motion in left hip. General Extremity: edema bilateral (Trace) lower extremity; Negative for clubbing or cyanosis Skin no rashes or lesions noted Neuro oriented x3, CN's II-XII intact bilaterally, moves all extremities and no focal motor deficits Psych cooperative and affect normal Lab / Micro Data Result Diagrams: 09/19/20 09:50 09/19/20 09:50 Labs: Laboratory Results - last 24 hr 09/19/20 09:50: WBC 12.0 H, RBC 3.64 L, Hgb 10.6 L, Hct 35.2 L, MCV 96.7, MCH 29.1, MCHC 30.1 L, RDW Std Deviation 50.9 H, RDW Coeff of Lanre 14.4, Plt Count 481 H, MPV 9.5, Immature Gran % (Auto) 0.600, Neut % (Auto) 82.3 H, Lymph % (Auto) 8.8 L, [place] % (Auto) 7.4, Eos % (Auto) 0.7, Baso % (Auto) 0.2, Absolute Neuts (auto) 9.9 H, Absolute Lymphs (auto) 1.06, Nucleated RBC % 0 09/19/20 09:50: Sodium 136, Potassium 4.1, Chloride 100, Carbon Dioxide 28.0, Anion Gap 8, BUN 28 H, Creatinine 1.56 H, Estim Creat Clear Calc 26.77, Est GFR (MDRD) Af Amer 43 L, Est GFR (MDRD) Non-Af 35 L, BUN/Creatinine Ratio 17.9, Glucose 156 H, Calcium 9.7, Total Bilirubin 0.60, AST 17, ALT 25, Alkaline Phosphatase 170 H, Total Protein 9.2 H, Albumin 3.2, Globulin 6.0 H, Albumin/Globulin Ratio 0.5 L 09/19/20 09:50: Lactic Acid 1.8 09/19/20 12:21: Urine Color Yellow, Urine Clarity Sl. Cloudy, Urine pH 6.0, Ur Specific [place] 1.015, Urine Protein 15 H, Urine Glucose (UA) Normal, Urine Ketones Negative, Urine Occult Blood 10 H, Urine Nitrite Negative, Urine Bilirubin Negative, Urine Urobilinogen Normal, Ur Leukocyte Esterase Negative, Urine RBC 0-5 SEEN, Urine WBC 0 SEEN, Ur Squamous Epith Cells 0-5 SEEN, Urine Bacteria 0 SEEN, Urine Mucus 0 SEEN Micro: Microbiology 09/19/20 10:00 Mucosa - Nose SARS-CoV-2 Antigen (Rapid) - Final 09/19/20 10:00 Mucosa - Nose Influenza Types A,B Direct FA (DALILA) - Final Radiology Impression Chest X-Ray 09/19/20 10:25 IMPRESSION: Normal portable chest. Pending Final Proof Editing Charges/Coding Visit Charges Inpatient E&M: 76039 Init Hosp L3
[2020-09-20] MEDS: Budesonide Respules 0.5 MG/2 ML AMPUL.NEB. INHALATION ×2 (07:40→18:58)
[2020-09-20 07:50] LABS: Absolute Lymphocyte Count 1.24 X10^3/uL (0.83-4.51); Basophil# 0.03 X10^3/uL; Basophil% 0.2 % (0-1); Eosinophil# 0.05 X10^3/uL; Eosinophils% 0.4 % (0-5); Hematocrit 31.6 % (37-47); Hemoglobin 9.4 g/dL (12.0-15.0); Lymphocyte # 1.24 X10^3/ul (0.83-4.51); Lymphocyte % 9.9 % (19-41); Mean Corp Hgb Conc 29.7 g/dL (32-36); Mean Corpuscular Hgb 28.9 pg (27.0-32.0); Mean Corpuscular Volume 97.2 fL (81-99); Mean Platelet Vol. 9.5 fl (6.2-12.0); Monocyte# 1.06 X10^3/uL; Monocyte% 8.5 % (0-10); NRBC Flagged by Analyzer 0 % (0-5); Neutrophil # 10.03 X10^3/uL (2.7-7.7); Neutrophil % 80.4 % (47-70); Platelet Count 371 K/mm3 (150-450); RBC Distribution Width CV 14.3 % (11.6-14.6); RBC Distribution Width SD 50.7 fl (35.1-43.9); Red Blood Count 3.25 M/mm3 (4.2-5.4); White Blood Count 12.5 K/mm3 (4.4-11.0)
[2020-09-20 08:14] LABS: ALB/GLOB Ratio 0.5 RATIO (0.9-2.4); AST(SGOT) 13 U/L (15-37); Alanine Aminotransfer ALT/SGPT 19 U/L (13-56); Albumin, Serum 2.4 g/dL (3.2-5.0); Alkaline Phosphatase 131 U/L (45-117); Anion Gap 5 (5-15); BUN 22 mg/dL (7-18); BUN/Creat Ratio 16.2 RATIO (10-20); Calcium,Total 8.9 mg/dL (8.5-10.1); Chloride 101 mmol/L (98-107); Creatinine, Serum 1.36 mg/dL (0.55-1.02); EST Glomerular Filtration Rate 41 mL/min (>60); Est Glom Filt Rate - Afr Amer 50 mL/min (>60); Globulin 5.2 g/dL (2.2-4.2); Glucose 136 mg/dL (74-106); Potassium 3.6 mmol/L (3.5-5.1); Protein, Total 7.6 g/dL (6.4-8.2); Sodium Level 137 mmol/L (136-145)
[2020-09-20] MEDS: APIXABAN 5 MG TABLET PO ×2 (08:30→21:43)
[2020-09-20] MEDS: Potassium Chloride Oral Tablet 20 MEQ PO (08:30)
[2020-09-20] MEDS: dilTIAZem CD 180 MG Capsule PO (08:30)
[2020-09-20] MEDS: Flecainide 100 MG Tablet 50 MG PO ×2 (08:31→21:43)
[2020-09-20] MEDS: Furosemide 40 MG Tablet PO ×2 (08:31→17:14)
[2020-09-20] MEDS: guaiFENesin 1,200 MG Tablet 1200 MG PO ×2 (08:32→21:42)
[2020-09-20] MEDS: Pantoprazole Sodium 40 MG Tablet PO (08:32)
[2020-09-20 09:00] LABS: Procalcitonin 2.03 ng/mL (0.00-0.09)
--- NOTE | 2020-09-20 09:05 | CASEMGMT ---
MARIO HURST Assessment: Face to Face with pt for initial transition planning/care coordination assessment. MARIO HURST introduced self and role at [facility], pt voices understanding and consents to assessment. Pt is A/O x4 and answers all questions appropriately at this time. Pt sitting up in chair with O2 on in no distress. Care providers, pharmacy, and demographics verified/updated. Admitting Dx: bronchiectasis exac, LRI, hypoxemia PCP:Cony Specialists:Jluis, puljacob; You, ID; Margo, cardio Preferred Pharmacy: [facility] Retail Insurance: MCR, MMO Prescription Benefit: yes LW/HPOA: Pt has LW/DPOA and it is on file at [facility]. LNOK: Eloisa Casarez, sister Living Arrangements: Pt lives with her 24 year old dtr who is disabled in a single story house with one step to enter. Pt has a w/c ramp but still requires one step to enter. Pt is cg for her dtr. Pt states she is I in ADL's and denies concerns at home. Transportation: Pt drives self and denies concerns with transportation. DME/HHC/SNF: Pt has a nebulizer, vibrating vest, walker, shower chair and grab bars in the home. Pt states she was using O2 earlier this year through [employer] but has sent it back as it was no longer needed. Pt has had [facility] in the past and also has been in [facility]. Pt states no concerns with going home at time of dc. She denies need for HHC. She states she has caregivers that comes at night to help her dtr bathe, institutional cook and put her to bed and she will see if they can help her as well if needed. Pt states no further concerns/needs. CM to follow for O2, therapy. Advised pt to ask CM if any further question/concerns/needs arise, voices understanding. Pt Goal: Home Plan: Home
--- NOTE | 2020-09-20 10:37 | PCM.RX.CS ---
Consult Pharmacy has been consulted to manage selected antiobiotic: Vancomycin Type of Consult: New start Suspected Infection: Pneumonia Labs: Sodium 137 mmol/L (136-145) 09/20/20 07:30 Potassium 3.6 mmol/L (3.5-5.1) 09/20/20 07:30 Chloride 101 mmol/L (98-107) 09/20/20 07:30 Carbon Dioxide 31.0 mmol/L (21.0-32.0) 09/20/20 07:30 Anion Gap 5 (5-15) 09/20/20 07:30 BUN 22 mg/dL (7-18) H 09/20/20 07:30 Creatinine 1.36 mg/dL (0.55-1.02) H 09/20/20 07:30 Est GFR (MDRD) Af Amer 50 mL/min (>60) L 09/20/20 07:30 Est GFR (MDRD) Non-Af 41 mL/min (>60) L 09/20/20 07:30 BUN/Creatinine Ratio 16.2 RATIO (10-20) 09/20/20 07:30 Glucose 136 mg/dL (74-106) H 09/20/20 07:30 Microbiology: Microbiology 09/19/20 10:00 Mucosa - Nose SARS-CoV-2 Antigen (Rapid) - Final 09/19/20 10:00 Mucosa - Nose Influenza Types A,B Direct FA (DALILA) - Final Goal Trough: 15-20 mcg/mL Pharmacy Plan for Drug Dosing: NEW START IV VANCOMYCIN Consulting Physician: Dr. Marrero Indication: Respiratory failure/ PNA Goal Trough: 15-20 SrCr: 1.36 CrCl: 31 mL/min Comments: Loading dose 2g IV x1 administered 09/20/20 @0827 Vancomcyin Dose: 1500mg IV Q24hr to start 09/21/20 @0800 Pending Level: 09/22/20 @0730, prior to 3rd total dose per protocol Pharmacy Service will continue to monitor and adjust dosing as required.
--- NOTE | 2020-09-20 12:26 | PCM.PROGNOTE ---
Documented by User: Shanice Ruelas NP-C 09/20/20 12:42 Subjective Subjective Patient seen and examined. Patient states she is feeling mildly better however she continues to have shortness of breath and a productive harsh cough. Patient currently on 2 L nasal cannula. Patient also complains of right hip pain which is chronic. Objective Data Objective Data Vital Signs: Vital Signs Temp Pulse Resp BP Pulse Ox 98.1 F 87 16 106/57 L 90 09/20/20 08:49 09/20/20 08:49 09/20/20 08:49 09/20/20 08:49 09/20/20 08:53 Oxygen Flow Rate (L/min) 2 Oxygen Delivery Method Nasal Cannula Weight: 243 lb Body Mass Index (BMI) 45.9 Intake & Output: Intake and Output for Last 24 Hours 09/18/20 09/19/20 09/20/20 23:59 23:59 23:59 Intake Total 650 / 650 1090 / 1090 Output Total 850 / 850 Balance 650 / 650 240 / 240 Lab / Micro Data Result Diagrams: 09/20/20 07:30 09/20/20 07:30 Labs: Laboratory Results - last 24 hr 09/19/20 12:21: Urine Color Yellow, Urine Clarity Sl. Cloudy, Urine pH 6.0, Ur Specific [place] 1.015, Urine Protein 15 H, Urine Glucose (UA) Normal, Urine Ketones Negative, Urine Occult Blood 10 H, Urine Nitrite Negative, Urine Bilirubin Negative, Urine Urobilinogen Normal, Ur Leukocyte Esterase Negative, Urine RBC 0-5 SEEN, Urine WBC 0 SEEN, Ur Squamous Epith Cells 0-5 SEEN, Urine Bacteria 0 SEEN, Urine Mucus 0 SEEN 09/20/20 07:30: WBC 12.5 H, RBC 3.25 L, Hgb 9.4 L, Hct 31.6 L, MCV 97.2, MCH 28.9, MCHC 29.7 L, RDW Std Deviation 50.7 H, RDW Coeff of Lanre 14.3, Plt Count 371, MPV 9.5, Immature Gran % (Auto) 0.600, Neut % (Auto) 80.4 H, Lymph % (Auto) 9.9 L, [place] % (Auto) 8.5, Eos % (Auto) 0.4, Baso % (Auto) 0.2, Absolute Neuts (auto) 10.0 H, Absolute Lymphs (auto) 1.24, Nucleated RBC % 0 09/20/20 07:30: Sodium 137, Potassium 3.6, Chloride 101, Carbon Dioxide 31.0, Anion Gap 5, BUN 22 H, Creatinine 1.36 H, Estim Creat Clear Calc 30.70, Est GFR (MDRD) Af Amer 50 L, Est GFR (MDRD) Non-Af 41 L, BUN/Creatinine Ratio 16.2, Glucose 136 H, Calcium 8.9, Total Bilirubin 0.60, AST 13 L, ALT 19, Alkaline Phosphatase 131 H, Total Protein 7.6, Albumin 2.4 L, Globulin 5.2 H, Albumin/Globulin Ratio 0.5 L 09/20/20 07:30: Procalcitonin 2.03 H Micro: Microbiology 09/19/20 10:15 Urine, Clean Catch Urine Culture - Preliminary GNR 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 Electronically Signed: Johnny Mo MD at 8:21 EDT Tel , Service support , Physical Exam Const alert and oriented x3 General Appearance: cooperative HEENT normocephalic and head/scalp atraumatic Eyes conjunctivae normal and no scleral icterus Neck supple and no JVD General: trachea midline Resp normal respiratory effort Effort and Inspection: able to speak in complete sentences and symmetric chest movement Auscultation: crackles and wheezes Cardio regular rate, regular rhythm, S1 normal heart sound and S2 normal heart sound GI normal to inspection, nondistended, normoactive bowel sounds, soft to palpation and non-tender Extremity normal to inspection General Extremity: edema bilateral lower extremity Details: mild Peripheral Pulses: Yes pulses 2+ throughout Right Lower Extremity: hip joint ROM (Painful, reduced range of motion, patient being evaluated outpatient) Skin General Skin Exam: no breakdown and turgor normal Lesions: no lesions Rashes: no rashes Neuro no focal motor deficits and no sensory deficits noted Speech: speech normal Motor Exam: general weakness Psych thought process normal, cooperative and affect normal Appearance: appropriate Assessment & Plan Assessment/Plan (1) Bronchiectasis with (acute) exacerbation: PLAN: 1.Bronchiectasis with (acute) exacerbation -Continue with IV antibiotics -Continue scheduled DuoNeb, budesonide, fluticasone. -Continue Mucinex -Chest vest therapy ordered, patient does this at home as well. -Consult pulmonology. Due to patient's history will defer steroid use to pulmonology -Sputum culture pending 2. Acute respiratory failure with hypoxia: -Resolved at this time, patient on room air -As needed oxygen 3. Hypertension -Stable -Continue home medication regimen including furosemide -Vital signs per protocol 4. Paroxysmal A. fib -Heart rate stable -Continue Eliquis and Cardizem 5. Hypothyroidism -Continue levothyroxine 6. Pain of left hip: -Acute on chronic left hip pain. Most likely osteoarthritis. -X-ray negative for acute findings -Continue [place] as needed for pain DVT prophylaxis-not indicated patient chronically anticoagulated This patient was seen by MAXIME Rivas under the supervision of Dr. Estes. Documented by User: Dr. Joo Estes, 09/20/20 12:50 Objective Data Lab / Micro Data Result Diagrams: 09/20/20 07:30 09/20/20 07:30 Charges/Coding Addendum Addendum: Patient seen and examined independently. Data reviewed. I agree with the above note by the nurse practitioner. Still short of breath and requiring oxygen but feels better overall. No acute distress and afebrile. Up in chair. Heart rate regular rate and rhythm plus S1-S2 with a murmur gallops or rubs. Lungs with coarse breath sounds bilaterally. Abdomen is obese but soft nontender nondistended normal bowel sounds. Assessment and plan 1. Acute exacerbation of bronchiectasis Pulmonary following Continue with her broad-spectrum antibiotics Chest physiotherapy 2. Asymptomatic bacteriuria Urine culture positive but urinalysis was negative. No indication for treatment but patient is already on antibiotics for the bronchiectasis. Visit Charges Inpatient E&M: 95523 Subs Hosp L2
[2020-09-20] MEDS: Acetaminophen 500 MG Tablet 1000 MG PO (14:39)
[2020-09-20] MEDS: cycloBENZAPRine HCl 10 MG Tablet PO (14:45)
[2020-09-20] MEDS: HYDROmorphone 2 MG TABLET PO (21:19)
[2020-09-20] MEDS: HYDROmorphone 2 MG TABLET 4 MG PO (21:26)
[2020-09-20] MEDS: MELATONIN 10 MG TABLET PO (21:42)
[2020-09-20] MEDS: Montelukast 10 MG Tablet PO (21:44)
[2020-09-21] VITALS (11 sets, daily range): BP systolic 104–124; BP diastolic 50–63; PULSE 57–97; RESP 16–24; TEMP 36.6–37.7; O2SAT 93–98
[2020-09-21] MEDS: Acetaminophen 500 MG Tablet 1000 MG PO
[2020-09-21] MEDS: Ipratropium/Albuterol Sulfate 3 ML AMPUL.NEB INHALATION ×4 (00:47→19:12)
[2020-09-21] MEDS: HYDROmorphone 2 MG TABLET 4 MG PO ×2 (01:45→09:31)
[2020-09-21 06:28] LABS: Absolute Neutrophil Count 10.8 X10^3/uL (2.0-7.7); Basophil# 0.03 X10^3/uL; Basophil% 0.2 % (0-1); Eosinophil# 0.05 X10^3/uL; Eosinophils% 0.4 % (0-5); Hematocrit 31.2 % (37-47); Hemoglobin 9.3 g/dL (12.0-15.0); Lymphocyte % 9.8 % (19-41); Mean Corp Hgb Conc 29.8 g/dL (32-36); Mean Corpuscular Hgb 28.8 pg (27.0-32.0); Mean Corpuscular Volume 96.6 fL (81-99); Mean Platelet Vol. 9.9 fl (6.2-12.0); Monocyte# 0.92 X10^3/uL; Monocyte% 6.9 % (0-10); NRBC Flagged by Analyzer 0 % (0-5); Neutrophil # 10.81 X10^3/uL (2.7-7.7); Neutrophil % 81.7 % (47-70); Platelet Count 387 K/mm3 (150-450); RBC Distribution Width CV 14.4 % (11.6-14.6); RBC Distribution Width SD 51.2 fl (35.1-43.9); Red Blood Count 3.23 M/mm3 (4.2-5.4); White Blood Count 13.2 K/mm3 (4.4-11.0)
[2020-09-21] MEDS: Levothyroxine 25 MCG TABLET PO (06:51)
[2020-09-21 06:52] LABS: BUN 22 mg/dL (7-18); BUN/Creat Ratio 14.6 RATIO (10-20); Chloride 100 mmol/L (98-107); Creatinine, Serum 1.51 mg/dL (0.55-1.02); EST Glomerular Filtration Rate 37 mL/min (>60); Est Glom Filt Rate - Afr Amer 44 mL/min (>60); Estimated Creatinine Clearance 27.65 ml/min; Glucose 139 mg/dL (74-106); Potassium 3.1 mmol/L (3.5-5.1); Sodium Level 137 mmol/L (136-145)
[2020-09-21] MEDS: Budesonide Respules 0.5 MG/2 ML AMPUL.NEB. INHALATION (06:52)
[2020-09-21 06:53] LABS: Anion Gap 9 (5-15)
--- NOTE | 2020-09-21 09:26 | PN.CC_ITS ---
Assessment & Plan Assessment/Plan (1) Bronchiectasis with (acute) exacerbation: (2) Chronic respiratory failure: QUALIFIERS: Respiratory failure complication: hypoxia Qualified Code(s): J96.11 - Chronic respiratory failure with hypoxia (3) GAGAN (obstructive sleep apnea): (4) Asthma: QUALIFIERS: Asthma severity: moderate Asthma persistence: persistent Asthma complication type: uncomplicated Qualified Code(s): J45.40 - Moderate persistent asthma, uncomplicated (5) Morbid obesity: PLAN: RECOMMENDATIONS: 1. Continue Vanco and Zosyn pending cultures 2. Continue Acapella therapy for pulmonary toileting 3. Transition to IV steroids 4. Wean oxygen as tolerated 5. Consider initiation of AVAPS with sleep if condition worsens IMPRESSIONS: 1. Acute exacerbation of bronchiectasis in the setting of chronic hypoxic respiratory failure Patient does have a history of MRSA and Pseudomonas on previous cultures. Patient would be at high risk for decompensation, but currently does not meet criteria for sepsis as there is no endorgan damage. Patient has been on 2 to 4 L of oxygen at baseline. Patient has been growing staph from the sputum. History of MRSA, so vancomycin will be continued. Patient is agreeable to transition IV steroids. 2. Morbid obesity/GAGAN Patient should be on therapy for obstructive sleep apnea. Patient has been resistant to this in the past per office notes. If patient were to start to have difficulties overnight, AVAPS could be initiated. 3. Acute on chronic left hip pain Patient does have significant risk factors for osteoarthritis. We will continue with empiric antibiotics. Physical exam is not suggestive of a septic joint in my opinion. MRI as an inpatient likely not indicated at this time. 4. History of steroid myopathy/morbid obesity/A. fib/history of coagulopathy Complicates care, management, recovery and prognosis. Patient is very resistant to steroid therapy at this time. Patient will reconsider if condition deteriorates. Okay to continue with anticoagulation from my perspective. Subjective Subjective Patient did well from a hemodynamic standpoint. However, patient feels subjectively that I will not make it without steroids. Patient continues to have a productive cough and denies any hemoptysis. Objective Data Objective Data Vital Signs: Vital Signs Temp Pulse Resp BP Pulse Ox 37.7 C H 97 20 H 124/63 H 95 09/21/20 09:20 09/21/20 09:20 09/21/20 09:20 09/21/20 09:20 09/21/20 09:20 Oxygen Flow Rate (L/min) 3 Oxygen Delivery Method Nasal Cannula Weight: 110.223 kg Body Mass Index (BMI) 45.9 Intake & Output: Intake and Output for Last 24 Hours 09/19/20 09/20/20 09/21/20 23:59 23:59 23:59 Intake Total 650 / 650 1590 / 1690 150 / 150 Output Total 1350 / 1350 Balance 650 / 650 240 / 340 150 / 150 Medical Nutrition Assessment Dietitian: Nutrition Therapy Diagnosis Start: 09/20/20 12:29 Freq: Status: Active Protocol: Document 09/20/20 12:40 SLA (Rec: 09/20/20 12:40 SLA [id number]) Nutrition Malnutrition Evidence of Malnutrition Exists No Clinical Problem Altered Nutrient-Related Laboratory Values Etiology related to endocrine dysfunction Signs/Symptoms as evidenced by gluc 136 Status Active Problem Recommendation Dietitian Recommendations/Changes Will change diet to Cardiac / Consistent CHO d/t past medical history and BMI Will provide diet education prior to discharge if warranted by patient Lab / Micro Data Result Diagrams: 09/21/20 04:47 09/21/20 04:47 Labs: Laboratory Results - last 24 hr 09/21/20 04:47: WBC 13.2 H, RBC 3.23 L, Hgb 9.3 L, Hct 31.2 L, MCV 96.6, MCH 28.8, MCHC 29.8 L, RDW Std Deviation 51.2 H, RDW Coeff of Lanre 14.4, Plt Count 387, MPV 9.9, Immature Gran % (Auto) 1.000 H, Neut % (Auto) 81.7 H, Lymph % (Auto) 9.8 L, [place] % (Auto) 6.9, Eos % (Auto) 0.4, Baso % (Auto) 0.2, Absolute Neuts (auto) 10.8 H, Absolute Lymphs (auto) 1.30, Nucleated RBC % 0 09/21/20 04:47: Sodium 137, Potassium 3.1 L, Chloride 100, Carbon Dioxide 28.0, Anion Gap 9, BUN 22 H, Creatinine 1.51 H, Estim Creat Clear Calc 27.65, Est GFR (MDRD) Af Amer 44 L, Est GFR (MDRD) Non-Af 37 L, BUN/Creatinine Ratio 14.6, Glucose 139 H, Calcium 9.0 Micro: Microbiology 09/19/20 10:51 Blood Culture (Wb) - Anticubital Right Blood Culture - Preliminary No growth in 48 hours. 09/19/20 09:50 Blood Culture (Wb) - Anticubital Left Blood Culture - Preliminary No growth in 48 hours. 09/19/20 10:15 Urine, Clean Catch Urine Culture - Final Escherichia coli 09/19/20 22:26 Sputum, Expectorated/Coughed Gram Stain - Final 09/19/20 22:26 Sputum, Expectorated/Coughed Respiratory Culture - Preliminary Staphylococcus species 09/19/20 10:00 Mucosa - Nose SARS-CoV-2 Antigen (Rapid) - Final 09/19/20 10:00 Mucosa - Nose Influenza Types A,B Direct FA (DALILA) - Final Physical Exam Const alert and oriented x3 General Appearance: cooperative, well developed, ill appearing Positive for acutely and appears older than stated age; Negative for in distress Nutritional Appearance: morbidly obese HEENT normocephalic, head/scalp atraumatic and moist oral mucous membranes Eyes PERRL and EOMs intact bilaterally Neck full ROM and no lymphadenopathy Chest inspection of chest normal Resp normal respiratory effort and no use of accessory muscles Resp Narrative: Rhonchi improved with cough Effort and Inspection: able to speak in complete sentences Auscultation: rhonchi and diminished lung sounds; Negative for rales or wheezes Percussion: Negative for dullness Cardio regular rate, S1 normal heart sound, S2 normal heart sound, no murmurs, no rub and no gallops Cardio Narrative: Distant heart sounds given body habitus Rhythm: abnormal rhythm irregularly irregular GI normal to inspection, nondistended, normoactive bowel sounds no CVA tenderness Extremity Extremity Narrative: Reasonable range of motion in left hip. General Extremity: edema bilateral (Trace) lower extremity; Negative for clubbing or cyanosis Skin no rashes or lesions noted Neuro oriented x3, CN's II-XII intact bilaterally, moves all extremities and no focal motor deficits Psych cooperative and affect normal Charges/Coding Visit Charges Inpatient E&M: 12246 Subs Hosp L3
[2020-09-21] MEDS: APIXABAN 5 MG TABLET PO ×2 (09:28→21:55)
[2020-09-21] MEDS: guaiFENesin 1,200 MG Tablet 1200 MG PO ×2 (09:28→21:55)
[2020-09-21] MEDS: dilTIAZem CD 180 MG Capsule PO (09:28)
[2020-09-21] MEDS: Pantoprazole Sodium 40 MG Tablet PO (09:28)
[2020-09-21] MEDS: Potassium Chloride Oral Tablet 20 MEQ 40 MEQ PO (09:28)
[2020-09-21] MEDS: Flecainide 100 MG Tablet 50 MG PO ×2 (09:28→21:56)
[2020-09-21] MEDS: Potassium Chloride Oral Tablet 20 MEQ PO (09:28)
[2020-09-21] MEDS: Furosemide 40 MG Tablet PO ×2 (09:28→17:17)
[2020-09-21] MEDS: Acetaminophen 325 MG Tablet 650 MG PO (09:29)
[2020-09-21] MEDS: 0.9% Saline Lock 10 ML Syringe IV ×2 (10:07→14:45)
--- NOTE | 2020-09-21 13:08 | PCM.PN.HOSP ---
Subjective Subjective Pain better controlled with change in medication. Denies any new complaints with left hip pain, but worse when she is chilling. Still coughing with productive yellow phlegm. Objective Data Objective Data Vital Signs: Vital Signs Temp Pulse Resp BP Pulse Ox 37.7 C H 97 20 H 124/63 H 95 09/21/20 09:20 09/21/20 09:20 09/21/20 09:20 09/21/20 09:20 09/21/20 09:20 Oxygen Flow Rate (L/min) 3 Oxygen Delivery Method Nasal Cannula Weight: 110.223 kg Body Mass Index (BMI) 45.9 Intake & Output: Intake and Output for Last 24 Hours 09/19/20 09/20/20 09/21/20 23:59 23:59 23:59 Intake Total 650 / 650 1590 / 1690 600 / 600 Output Total 1350 / 1350 Balance 650 / 650 240 / 340 600 / 600 Medical Nutrition Assessment Dietitian: Nutrition Therapy Diagnosis Start: 09/20/20 12:29 Freq: Status: Active Protocol: Document 09/20/20 12:40 IVELISSE (Rec: 09/20/20 12:40 SLA [id number]) Nutrition Malnutrition Evidence of Malnutrition Exists No Clinical Problem Altered Nutrient-Related Laboratory Values Etiology related to endocrine dysfunction Signs/Symptoms as evidenced by gluc 136 Status Active Problem Recommendation Dietitian Recommendations/Changes Will change diet to Cardiac / Consistent CHO d/t past medical history and BMI Will provide diet education prior to discharge if warranted by patient Lab / Micro Data Result Diagrams: 09/21/20 04:47 09/21/20 04:47 Labs: Laboratory Results - last 24 hr 09/21/20 04:47: WBC 13.2 H, RBC 3.23 L, Hgb 9.3 L, Hct 31.2 L, MCV 96.6, MCH 28.8, MCHC 29.8 L, RDW Std Deviation 51.2 H, RDW Coeff of Lanre 14.4, Plt Count 387, MPV 9.9, Immature Gran % (Auto) 1.000 H, Neut % (Auto) 81.7 H, Lymph % (Auto) 9.8 L, [place] % (Auto) 6.9, Eos % (Auto) 0.4, Baso % (Auto) 0.2, Absolute Neuts (auto) 10.8 H, Absolute Lymphs (auto) 1.30, Nucleated RBC % 0 09/21/20 04:47: Sodium 137, Potassium 3.1 L, Chloride 100, Carbon Dioxide 28.0, Anion Gap 9, BUN 22 H, Creatinine 1.51 H, Estim Creat Clear Calc 27.65, Est GFR (MDRD) Af Amer 44 L, Est GFR (MDRD) Non-Af 37 L, BUN/Creatinine Ratio 14.6, Glucose 139 H, Calcium 9.0 Micro: Microbiology 09/19/20 22:26 Sputum, Expectorated/Coughed Gram Stain - Final 09/19/20 22:26 Sputum, Expectorated/Coughed Respiratory Culture - Preliminary Staphylococcus aureus 09/19/20 10:51 Blood Culture (Wb) - Anticubital Right Blood Culture - Preliminary No growth in 48 hours. 09/19/20 09:50 Blood Culture (Wb) - Anticubital Left Blood Culture - Preliminary No growth in 48 hours. 09/19/20 10:15 Urine, Clean Catch Urine Culture - Final Escherichia coli 09/19/20 10:00 Mucosa - Nose SARS-CoV-2 Antigen (Rapid) - Final 09/19/20 10:00 Mucosa - Nose Influenza Types A,B Direct FA (DALILA) - Final Physical Exam Narrative more comfortable. HEENT Head and Scalp: normocephalic Resp normal respiratory effort Resp Narrative: coarse breath sounds bilaterally. Cardio regular rate, regular rhythm, S1 normal heart sound and S2 normal heart sound GI normal to inspection, nondistended, normoactive bowel sounds, soft to palpation, non-tender and non-distended Assessment & Plan Assessment/Plan (1) Bronchiectasis with (acute) exacerbation: PLAN: 1.Bronchiectasis with (acute) exacerbation Continue with IV antibiotics: pip/tazo and vanc Continue scheduled DuoNeb, budesonide, fluticasone. Continue Mucinex Chest vest therapy ordered, patient does this at home as well. Consult pulmonology. Sputum culture pending 09/21: started on methylprednisone 2. Acute respiratory failure with hypoxia: Still on oxygen, wean as tolerated 3. Hypertension -Stable -Continue home medication regimen including furosemide -Vital signs per protocol 4. Paroxysmal A. fib -Heart rate stable -Continue Eliquis and Cardizem 5. Hypothyroidism -Continue levothyroxine 6. Pain of left hip: Chronic per patient. States confined to left hip and groin. Denies new complaints from baseline. 09/21: improved after switching to PO hydromorphone from [place] Pt has outpt MRI next week (she is unsure if it is her hip or back.) I suspect that this may be from her back given scoliosis and subluxation noted. No inpatient work up unless symptoms worsen 7. DVT prophylaxis-not indicated patient chronically anticoagulated Charges/Coding Visit Charges Inpatient E&M: 78702 Subs Hosp L2
[2020-09-21] MEDS: Montelukast 10 MG Tablet PO (21:55)
[2020-09-21] MEDS: MELATONIN 10 MG TABLET PO (21:55)
[2020-09-21] MEDS: Docusate Sodium 100 MG Capsule 200 MG PO (21:58)
[2020-09-22] VITALS (8 sets, daily range): BP systolic 94–112; BP diastolic 49–51; PULSE 72–87; RESP 16–18; TEMP 36.4–37; O2SAT 92–99
[2020-09-22] MEDS: Ipratropium/Albuterol Sulfate 3 ML AMPUL.NEB INHALATION ×3 (01:48→13:00)
[2020-09-22] MEDS: Levothyroxine 25 MCG TABLET PO (06:01)
--- NOTE | 2020-09-22 07:35 | PCM.PN.HOSP ---
Objective Data Objective Data Vital Signs: Vital Signs Temp Pulse Resp BP Pulse Ox 97.6 F L 80 16 94/51 L 96 09/22/20 02:29 09/22/20 02:29 09/22/20 02:29 09/22/20 02:29 09/22/20 02:29 Oxygen Flow Rate (L/min) 2 Oxygen Delivery Method Nasal Cannula Weight: 243 lb Body Mass Index (BMI) 45.9 Intake & Output: Intake and Output for Last 24 Hours 09/20/20 09/21/20 09/22/20 23:59 23:59 23:59 Intake Total 1590 / 1690 2130 / 2130 50 / 50 Output Total 1350 / 1350 450 / 450 Balance 240 / 340 1680 / 1680 50 / 50 Medical Nutrition Assessment Dietitian: Nutrition Therapy Diagnosis Start: 09/20/20 12:29 Freq: Status: Active Protocol: Document 09/20/20 12:40 SLA (Rec: 09/20/20 12:40 SLA [id number]) Nutrition Malnutrition Evidence of Malnutrition Exists No Clinical Problem Altered Nutrient-Related Laboratory Values Etiology related to endocrine dysfunction Signs/Symptoms as evidenced by gluc 136 Status Active Problem Recommendation Dietitian Recommendations/Changes Will change diet to Cardiac / Consistent CHO d/t past medical history and BMI Will provide diet education prior to discharge if warranted by patient Lab / Micro Data Result Diagrams: 09/21/20 04:47 09/21/20 04:47 Micro: Microbiology 09/19/20 22:26 Sputum, Expectorated/Coughed Gram Stain - Final 09/19/20 22:26 Sputum, Expectorated/Coughed Respiratory Culture - Preliminary Staphylococcus aureus 09/19/20 10:51 Blood Culture (Wb) - Anticubital Right Blood Culture - Preliminary No growth in 48 hours. 09/19/20 09:50 Blood Culture (Wb) - Anticubital Left Blood Culture - Preliminary No growth in 48 hours. 09/19/20 10:15 Urine, Clean Catch Urine Culture - Final Escherichia coli 09/19/20 10:00 Mucosa - Nose SARS-CoV-2 Antigen (Rapid) - Final 09/19/20 10:00 Mucosa - Nose Influenza Types A,B Direct FA (DALILA) - Final Assessment & Plan Assessment/Plan (1) Bronchiectasis with (acute) exacerbation: PLAN: 1.Bronchiectasis with (acute) exacerbation Continue with IV antibiotics: pip/tazo and vanc Continue scheduled DuoNeb, budesonide, fluticasone. Continue Mucinex Chest vest therapy ordered, patient does this at home as well. Consult pulmonology. Sputum culture pending 09/21: started on methylprednisone 2. Acute respiratory failure with hypoxia: Still on oxygen, wean as tolerated 3. Hypertension -Stable -Continue home medication regimen including furosemide -Vital signs per protocol 4. Paroxysmal A. fib -Heart rate stable -Continue Eliquis and Cardizem 5. Hypothyroidism -Continue levothyroxine 6. Pain of left hip: Chronic per patient. States confined to left hip and groin. Denies new complaints from baseline. 09/21: improved after switching to PO hydromorphone from [place] Pt has outpt MRI next week (she is unsure if it is her hip or back.) I suspect that this may be from her back given scoliosis and subluxation noted. No inpatient work up unless symptoms worsen 7. DVT prophylaxis-not indicated patient chronically anticoagulated
[2020-09-22 07:45] LABS: Absolute Lymphocyte Count 0.56 X10^3/uL (0.83-4.51); Absolute Neutrophil Count 6.3 X10^3/uL (2.0-7.7); Basophil# 0.01 X10^3/uL; Basophil% 0.1 % (0-1); Hematocrit 31.8 % (37-47); Hemoglobin 9.8 g/dL (12.0-15.0); Lymphocyte # 0.56 X10^3/ul (0.83-4.51); Lymphocyte % 7.7 % (19-41); Mean Corp Hgb Conc 30.8 g/dL (32-36); Mean Corpuscular Hgb 29.3 pg (27.0-32.0); Mean Corpuscular Volume 94.9 fL (81-99); Mean Platelet Vol. 9.9 fl (6.2-12.0); Monocyte# 0.29 X10^3/uL; NRBC Flagged by Analyzer 0 % (0-5); Neutrophil % 87.1 % (47-70); POSITIVE DIFFERENTIAL YES; Platelet Count 392 K/mm3 (150-450); RBC Distribution Width CV 13.9 % (11.6-14.6); RBC Distribution Width SD 48.7 fl (35.1-43.9); Red Blood Count 3.35 M/mm3 (4.2-5.4); White Blood Count 7.2 K/mm3 (4.4-11.0)
[2020-09-22 07:46] LABS: Differential Indicated SCAN CRITERIA MET
[2020-09-22] MEDS: dilTIAZem CD 180 MG Capsule PO (07:55)
[2020-09-22] MEDS: Potassium Chloride Oral Tablet 20 MEQ PO (07:55)
[2020-09-22] MEDS: Furosemide 40 MG Tablet PO (07:56)
[2020-09-22] MEDS: Pantoprazole Sodium 40 MG Tablet PO (07:56)
[2020-09-22] MEDS: APIXABAN 5 MG TABLET PO (07:56)
[2020-09-22] MEDS: guaiFENesin 1,200 MG Tablet 1200 MG PO (07:56)
[2020-09-22] MEDS: Flecainide 100 MG Tablet 50 MG PO (07:57)
[2020-09-22 08:07] LABS: Anion Gap 9 (5-15); BUN 28 mg/dL (7-18); Calcium,Total 9.7 mg/dL (8.5-10.1); Chloride 103 mmol/L (98-107); Creatinine, Serum 1.22 mg/dL (0.55-1.02); EST Glomerular Filtration Rate 47 mL/min (>60); Est Glom Filt Rate - Afr Amer 57 mL/min (>60); Estimated Creatinine Clearance 34.23 ml/min; Glucose 257 mg/dL (74-106); Potassium 3.5 mmol/L (3.5-5.1); Sodium Level 137 mmol/L (136-145)
[2020-09-22 08:19] LABS: Vancomycin, Trough Level 19.8 ug/mL (5.0-15.0)
--- NOTE | 2020-09-22 08:43 | PCM.RX.CS ---
Consult Pharmacy has been consulted to manage selected antiobiotic: Vancomycin Type of Consult: Follow-up Suspected Infection: Pneumonia Prior Doses of Antibiotics Received/Current Regimen: Currently on 1500mg iv q24h. Labs: Sodium 137 mmol/L (136-145) 09/22/20 07:34 Potassium 3.5 mmol/L (3.5-5.1) 09/22/20 07:34 Chloride 103 mmol/L (98-107) 09/22/20 07:34 Carbon Dioxide 25.0 mmol/L (21.0-32.0) 09/22/20 07:34 Anion Gap 9 (5-15) 09/22/20 07:34 BUN 28 mg/dL (7-18) H 09/22/20 07:34 Creatinine 1.22 mg/dL (0.55-1.02) H 09/22/20 07:34 Est GFR (MDRD) Af Amer 57 mL/min (>60) L 09/22/20 07:34 Est GFR (MDRD) Non-Af 47 mL/min (>60) L 09/22/20 07:34 BUN/Creatinine Ratio 23.0 RATIO (10-20) H 09/22/20 07:34 Glucose 257 mg/dL (74-106) H 09/22/20 07:34 Vancomycin Trough 19.8 ug/mL (5.0-15.0) H 09/22/20 07:34 Microbiology: Microbiology 09/19/20 22:26 Sputum, Expectorated/Coughed Gram Stain - Final 09/19/20 22:26 Sputum, Expectorated/Coughed Respiratory Culture - Preliminary Meth. resistant Staph. aureus 09/19/20 10:51 Blood Culture (Wb) - Anticubital Right Blood Culture - Preliminary No growth in 48 hours. 09/19/20 09:50 Blood Culture (Wb) - Anticubital Left Blood Culture - Preliminary No growth in 48 hours. 09/19/20 10:15 Urine, Clean Catch Urine Culture - Final Escherichia coli 09/19/20 10:00 Mucosa - Nose SARS-CoV-2 Antigen (Rapid) - Final 09/19/20 10:00 Mucosa - Nose Influenza Types A,B Direct FA (DALILA) - Final Weight used for dosin kg Estimated Creatinine Clearance: ~28ml/min Goal Trough: 15-20 mcg/mL Pharmacy Plan for Drug Dosing: Trough level today 19.8 ~20 hrs post dose on 09.21.20. Goal range 15-20mcg/ml. Will continue same regimen and get another trough level in 3 days on 09.24.20. Pharmacy Service will continue to monitor and adjust dosing as required. Follow-Up Labs: Trough Vancomycin - 09.24.20@0730 before 0800 dose
--- NOTE | 2020-09-22 10:42 | PN.CC_ITS ---
Assessment & Plan Assessment/Plan (1) Bronchiectasis with (acute) exacerbation: PLAN: RECOMMENDATIONS: 1. Likely okay to transition to vancomycin monotherapy. 2. Recommend infectious diseases consultation to assist with antimicrobial management/length of treatment. 3. Continue bronchodilator therapy. 4. Okay to transition to prednisone 40 mg daily. Plan for a 5-day burst at discharge. 5. Encourage incentive spirometer use and mobilize patient as tolerated. 6. Outpatient pulmonary follow-up within 2 weeks of discharge. IMPRESSIONS: 1. Acute asthma/bronchiectasis exacerbation The patient appears to be improving symptomatically in light of antimicrobial therapy, bronchodilators and steroids. Her sputum culture did demonstrate 3+ staph aureus. Accordingly, consultation has been placed to infectious diseases to assist with antimicrobial selection and treatment duration. At discharge, I would recommend that the patient be sent home with a 5-day burst of prednisone 40 mg daily. 2. History of steroid myopathy/obesity/A. fib Complicates care, management, recovery and prognosis. Continue home medications as indicated. This note was generated with [employer] dictation software. It may contain incorrect words, spelling, and punctuation that were not noted in checking the note before signing. Subjective Subjective The patient was seen and examined at the bedside this morning. Events from the last 24 hours have been reviewed. The patient is currently afebrile, hemodynamically stable and maintaining appropriate oxygen saturations on room air. The patient is currently being maintained on antimicrobials with vanc omycin and Zosyn. She is documented to be overall net +3.2 L for the hospital admission. Objective Data Objective Data The patient's most recent lab work, culture data and imaging studies have all been personally reviewed. Surface echocardiogram from February 2019 demonstrated stage II diastolic dysfunction with an ejection fraction of 65%. Right ventricular systolic pressure was estimated to be 35 mmHg. Sputum culture dated September 19 demonstrated 3+ growth of MRSA. Vital Signs: Vital Signs Temp Pulse Resp BP Pulse Ox 98.6 F 87 16 112/51 L 95 09/22/20 09:10 09/22/20 09:10 09/22/20 09:10 09/22/20 09:10 09/22/20 09:10 Oxygen Flow Rate (L/min) 2 Oxygen Delivery Method Room Air Weight: 110.223 kg Body Mass Index (BMI) 45.9 Intake & Output: Intake and Output for Last 24 Hours 09/20/20 09/21/20 09/22/20 23:59 23:59 23:59 Intake Total 1590 / 1690 2130 / 2130 630 / 630 Output Total 1350 / 1350 450 / 450 Balance 240 / 340 1680 / 1680 630 / 630 Medical Nutrition Assessment Dietitian: Nutrition Therapy Diagnosis Start: 09/20/20 12:29 Freq: Status: Active Protocol: Document 09/20/20 12:40 SLA (Rec: 09/20/20 12:40 SLA [id number]) Nutrition Malnutrition Evidence of Malnutrition Exists No Clinical Problem Altered Nutrient-Related Laboratory Values Etiology related to endocrine dysfunction Signs/Symptoms as evidenced by gluc 136 Status Active Problem Recommendation Dietitian Recommendations/Changes Will change diet to Cardiac / Consistent CHO d/t past medical history and BMI Will provide diet education prior to discharge if warranted by patient Lab / Micro Data Attestation: I reviewed the patient's lab results. Result Diagrams: 09/22/20 07:34 09/22/20 07:34 Labs: Laboratory Results - last 24 hr 09/22/20 07:34: Vancomycin Trough 19.8 H 09/22/20 07:34: WBC 7.2, RBC 3.35 L, Hgb 9.8 L, Hct 31.8 L, MCV 94.9, MCH 29.3, MCHC 30.8 L, RDW Std Deviation 48.7 H, RDW Coeff of Lanre 13.9, Plt Count 392, MPV 9.9, Immature Gran % (Auto) 1.100 H, Neut % (Auto) 87.1 H, Lymph % (Auto) 7.7 L, [place] % (Auto) 4.0, Eos % (Auto) 0.0, Baso % (Auto) 0.1, Absolute Neuts (auto) 6.3, Absolute Lymphs (auto) 0.56 L, Nucleated RBC % 0 09/22/20 07:34: Sodium 137, Potassium 3.5, Chloride 103, Carbon Dioxide 25.0, Anion Gap 9, BUN 28 H, Creatinine 1.22 H, Estim Creat Clear Calc 34.23, Est GFR (MDRD) Af Amer 57 L, Est GFR (MDRD) Non-Af 47 L, BUN/Creatinine Ratio 23.0 H, Glucose 257 H, Calcium 9.7 Micro: Microbiology 09/19/20 22:26 Sputum, Expectorated/Coughed Gram Stain - Final 09/19/20 22:26 Sputum, Expectorated/Coughed Respiratory Culture - Preliminary Meth. resistant Staph. aureus 09/19/20 10:51 Blood Culture (Wb) - Anticubital Right Blood Culture - Preliminary No growth in 48 hours. 09/19/20 09:50 Blood Culture (Wb) - Anticubital Left Blood Culture - Preliminary No growth in 48 hours. 09/19/20 10:15 Urine, Clean Catch Urine Culture - Final Escherichia coli 09/19/20 10:00 Mucosa - Nose SARS-CoV-2 Antigen (Rapid) - Final 09/19/20 10:00 Mucosa - Nose Influenza Types A,B Direct FA (DALILA) - Final Physical Exam Const alert, oriented x3 and no apparent distress Constitutional Narrative: Sitting in bedside recliner. General Appearance: cooperative Nutritional Appearance: obese HEENT normocephalic, head/scalp atraumatic and moist oral mucous membranes Eyes PERRL, EOMs intact bilaterally and conjunctivae normal Neck supple General: trachea midline Resp normal respiratory effort Resp Narrative: Scant rhonchi. Auscultation: Negative for rales or wheezes Cardio regular rate and regular rhythm GI normal to inspection, nondistended, normoactive bowel sounds Extremity no clubbing, cyanosis or edema Skin no rashes or lesions noted Neuro CN's II-XII intact bilaterally, moves all extremities and no focal motor deficits Psych cooperative and affect normal Charges/Coding Visit Charges Inpatient E&M: 82891 Subs Hosp L2
--- NOTE | 2020-09-22 10:58 | DCINST_ITS ---
Discharge Instructions Diet Discharge Diet: 2000 mg Sodium Diet Activity Discharge Activity: Return to Normal Activity and May Not Drive Dressing / Incision Call your doctor if you observe: Fever of 101 or Higher, Coldness, Increased Pain, Numbness or Tingling, Change in Color, Inability to urinate, Inability to have a bowel movement, Using more than 1 pad per hour, Shortness of breath, Dizziness, Fainting spells, Swelling in the ankles, Chest pain, Prolonged hiccupping, Increased palpitations (irregular heartbeat), Calf discomfort and Uncontrolled pain Follow Up Care Test Results: Test results from this visit will be discussed in further detail at your follow-up appointment, if applicable. Discharge Plan Admission Admit Date/Time: 09/19/20 16:32 Primary Reason for Your Visit: Acute exacerbation of Bronchiectasis Attending Provider: Morales Cantrell Primary Care Provider: Ervin Donnelly Consulting Providers: Antoni Marrero ; Pete Bazzi ; Marie Langley [employer] ; Peter Orta Discharge Orders/Prescriptions Prescriptions: New doxycycline monohydrate 100 mg Capsule 100 mg PO BID Qty: 20 RF: 0 Mucus Relief ER 1,200 mg Tablet Extended Release 12hr 1,200 mg PO BID Qty: 14 RF: 0 ascorbic acid (vitamin C) [Vitamin C] 500 mg tablet 500 mg PO DAILY Qty: 1 RF: 0 prednisone 20 mg tablet 40 mg PO DAILY Qty: 10 RF: 0 Continued famotidine 40 mg tablet 40 mg PO QHS RF: 0 esomeprazole magnesium [Nexium] 40 mg capsule,delayed release(DR/EC) 40 mg PO QAM RF: 0 apixaban 5 mg tablet 5 mg PO BID Qty: 180 RF: 4 levothyroxine 25 mcg tablet 25 mcg PO DAILY@0600 RF: 0 potassium chloride 20 MEQ tablet 20 meq PO DAILY Qty: 30 RF: 0 furosemide 40 mg tablet 40 mg PO BID RF: 0 hydrocodone-acetaminophen 5-300 mg Tablet 1 tab PO Q6H PRN (Reason: Pain) RF: 0 ondansetron HCl 4 mg tablet 4 mg PO Q8H PRN (Reason: Nausea) RF: 0 flecainide 50 mg tablet 50 mg PO BID RF: 0 cholecalciferol (vitamin D3) 50 mcg (2,000 unit) Capsule 50 mcg PO DAILY RF: 0 acidophilus-pectin, citrus 1 TABLET tablet 1 tablet PO BID RF: 0 diltiazem HCl 180 mg capsule,extended release 24hr 180 mg PO DAILY Qty: 90 RF: 3 Advair HFA 230-21 mcg/actuation HFA aerosol inhaler 2 puff INHALATION BID Qty: 3 RF: 11 montelukast 10 mg tablet 10 mg PO QHS Qty: 90 RF: 11 albuterol sulfate 2.5 mg /3 mL (0.083 %) solution for nebulization 2.5 mg INHALATION Q4H PRN Qty: 180 RF: 6 Changed ferrous sulfate 325 MG tablet 325 mg PO QODAY Qty: 0 RF: 0 Referrals / Follow Up: Ervin Donnelly MD [Primary Care Provider] - In 1 Week Pete Bazzi DO [STAFF PHYSICIAN] - Within 2 Weeks (Follow with Dr. Marie Langley, [employer]RE[employer] OFF[employer]ER [employer] in pulmonary clinic) Disposition Disposition (needs filled in before D/C Order can be placed): Home, Self Care
--- NOTE | 2020-09-22 11:03 | PCM.DC.SUM ---
Providers Date of Admission: 09/19/20 Primary Care Physician: Dr. Ervin Donnelly MD Consultations 09/19/20 16:35 Consult: Field Artillery Operations Specialist / Pulmonary Medicine Routine Consulting Provider: Pulmonary Medicine arthur Jackson Reason for Consult: Bronchiectasis exacerbation EMERGENT Consult: No Notified: Yes Date Notified: 09/19/20 Time Notified: 17:33 Method of Notification: spoke on phone 09/22/20 09:17 Consult: Infectious Disease Routine Consulting Provider: Peter Orta Reason for Consult: Recurrent MRSA infections EMERGENT Consult: No Notified: Yes Date Notified: 09/22/20 Time Notified: 10:40 Method of Notification: spoke with office Reason For Visit: BRONCHIECTASIS EXAC, LRI, HYPOXEMIA Diagnosis Discharge Diagnosis (1) Bronchiectasis with (acute) exacerbation: Status: Acute Code(s): J47.1 - Bronchiectasis with (acute) exacerbation Medications at Discharge Home Medications potassium chloride 20 meq PO DAILY #30 tab 12/20/19 levothyroxine 25 mcg tablet 25 mcg PO DAILY@0600 01/04/20 fluticasone propionate 230 mcg-salmeterol 21 mcg/actuation HFA inhaler 2 puff INHALATION BID #3 device 03/11/20 montelukast 10 mg tablet 10 mg PO QHS #90 tab 03/11/20 albuterol sulfate 2.5 mg INHALATION Q4H PRN #180 vial 03/17/20 apixaban 5 mg tablet 5 mg PO BID #180 tab 04/02/20 esomeprazole magnesium 40 mg capsule,delayed release 40 mg PO QAM cap 04/02/20 famotidine 40 mg tablet 40 mg PO QHS 04/02/20 acidophilus-pectin, citrus 1 tablet PO BID 09/19/20 cholecalciferol (vitamin D3) 50 mcg PO DAILY 09/19/20 flecainide 50 mg PO BID 09/19/20 furosemide 40 mg PO BID 09/19/20 hydrocodone-acetaminophen 1 tab PO Q6H PRN 09/19/20 ondansetron HCl 4 mg PO Q8H PRN 09/19/20 ascorbic acid (vitamin C) [Vitamin C] 500 mg PO DAILY #1 tab 09/22/20 diltiazem HCl 180 mg PO DAILY #90 cap 09/22/20 doxycycline monohydrate 100 mg PO BID #20 cap 09/22/20 ferrous sulfate 325 mg PO QODAY #0 tab 09/22/20 guaifenesin [Mucus Relief ER] 1,200 mg PO BID #14 tab 09/22/20 prednisone 40 mg PO DAILY #10 tab 09/22/20 Hospital Course Summary of Care Provided Hospital Course: This 65-year-old female with multiple comorbidities including bronchiectasis was admitted for increasing cough, purulent sputum, shortness of breath, fever and malaise consistent with bronchiectasis exacerbation. 1.acute exacerbation of bronchiectasis: [facility] Was treated with broad-spectrum antibiotic vancomycin and Zosyn. On scheduled DuoNeb, blood in the site and fluticasone. Mucinex. Patient has vest at home therefore continued here. Senior Analyst Developer was consulted. Patient hypoxia resolved. ID consult reviewed and appreciated. Sputum culture shows 3+ MRSA. In the past sputum culture grew MRSA, E. coli and Pseudomonas. 2. Acute respiratory failure with hypoxia: Resolved. 3. Hypertension -Continue home medication regimen including furosemide 4. Paroxysmal A. fib: Heart rate is controlled. On Eliquis and Cardizem. 5. Hypothyroidism -Continue levothyroxine 6. Chronic left hip pain, arthritis. Patient has a scheduled outpatient MRI next week. It has improved on steroid and opioid pain medication. Discharge medication reconciliation done. Discharge follow-up instructions completed. Discharge process discussed with the patient and all questions were answered to patient's satisfaction. The patient is discharged on doxycycline for 10 more days, prednisone burst therapy, 40 mg daily for 5 days and continue bronchodilator and vest therapy. Follow-up in pulmonary clinic in 2 weeks Total time spent, exact 35 minutes on discharge meds reconciliation, examination, coordination of care with nurses and ancillary staff, review of imaging and blood test and discussion with the patient on follow-up instructions Physical Exam Narrative The patient has history of recurrent exacerbation of bronchiectasis and had multiple courses of antibiotics. She completed a course of Levaquin about 3 weeks ago in pulmonary clinic. Recently sputum culture shows 3+ MRSA. Last T-max 100.9 Fahrenheit on 8/7 in afternoon. Left hip pain is much improved on the steroid. Physical exam General: Alert, Oriented x3, Cooperative HEENT: Atraumatic, PERRLA, EOMI, Normocephalic Oral: No Gingival or Mucosal Lesions/ Ulcerations Neck: Supple, No JVD, Negative Carotid Bruits Lungs: Air entry diminished in bilateral lung bases. Bilateral coarse crepitations. Pulse ox 95% on on room air Cardiovascular: Regular rate, Regular Rhythm, Normal S1, Normal S2, No murmurs Abdomen: Bowel Sounds Present, Soft, Non Tender, Non-Distended : No renal angle tenderness. No suprapubic tenderness. Extremities: No edema, Capillary Refill Less than 3 Seconds Skin: No rashes, No breakdown Musculoskeletal: Mild left hip tenderness. ROM restricted. Neurological: Cranial nerves II-XII grossly intact, DTR 2+/4 and Symmetrical, Neuro grossly intact Psych/Mental Status: Normal Affect, Appropriate. Medical Records Data Medical Nutrition Assessment Dietitian: Nutrition Therapy Diagnosis Start: 09/20/20 12:29 Freq: Status: Active Protocol: Document 09/20/20 12:40 SLA (Rec: 09/20/20 12:40 [facility] [id number]) Nutrition Malnutrition Evidence of Malnutrition Exists No Clinical Problem Altered Nutrient-Related Laboratory Values Etiology related to endocrine dysfunction Signs/Symptoms as evidenced by gluc 136 Status Active Problem Recommendation Dietitian Recommendations/Changes Will change diet to Cardiac / Consistent CHO d/t past medical history and BMI Will provide diet education prior to discharge if warranted by patient Weight / BMI Weight Weight: 243 lb Body Mass Index (BMI) 45.9 ABG / Lab / Microbiology Data Result Diagrams: 09/22/20 07:34 09/22/20 07:34 Laboratory: Laboratory Results - last 24 hr 09/22/20 07:34: Vancomycin Trough 19.8 H 09/22/20 07:34: WBC 7.2, RBC 3.35 L, Hgb 9.8 L, Hct 31.8 L, MCV 94.9, MCH 29.3, MCHC 30.8 L, RDW Std Deviation 48.7 H, RDW Coeff of Lanre 13.9, Plt Count 392, MPV 9.9, Immature Gran % (Auto) 1.100 H, Neut % (Auto) 87.1 H, Lymph % (Auto) 7.7 L, [place] % (Auto) 4.0, Eos % (Auto) 0.0, Baso % (Auto) 0.1, Absolute Neuts (auto) 6.3, Absolute Lymphs (auto) 0.56 L, Nucleated RBC % 0 09/22/20 07:34: Sodium 137, Potassium 3.5, Chloride 103, Carbon Dioxide 25.0, Anion Gap 9, BUN 28 H, Creatinine 1.22 H, Estim Creat Clear Calc 34.23, Est GFR (MDRD) Af Amer 57 L, Est GFR (MDRD) Non-Af 47 L, BUN/Creatinine Ratio 23.0 H, Glucose 257 H, Calcium 9.7 Microbiology: Microbiology 09/19/20 22:26 Sputum, Expectorated/Coughed Gram Stain - Final 09/19/20 22:26 Sputum, Expectorated/Coughed Respiratory Culture - Final Meth. resistant Staph. aureus 09/19/20 10:51 Blood Culture (Wb) - Anticubital Right Blood Culture - Preliminary No growth in 48 hours. 09/19/20 09:50 Blood Culture (Wb) - Anticubital Left Blood Culture - Preliminary No growth in 48 hours. 09/19/20 10:15 Urine, Clean Catch Urine Culture - Final Escherichia coli 09/19/20 10:00 Mucosa - Nose SARS-CoV-2 Antigen (Rapid) - Final 09/19/20 10:00 Mucosa - Nose Influenza Types A,B Direct FA (DALILA) - Final D/C Instructions Discharge Diet: 2000 mg Sodium Diet Call your doctor if you observe: Fever of 101 or Higher, Coldness, Increased Pain, Numbness or Tingling, Change in Color, Inability to urinate, Inability to have a bowel movement, Using more than 1 pad per hour, Shortness of breath, Dizziness, Fainting spells, Swelling in the ankles, Chest pain, Prolonged hiccupping, Increased palpitations (irregular heartbeat), Calf discomfort and Uncontrolled pain Meaningful Use Info Meaningful Use Diagnoses (Choose all that apply): None applicable Discharge Plan Admission Admit Date/Time: 09/19/20 16:32 Primary Reason for Your Visit: Acute exacerbation of Bronchiectasis Attending Provider: Morales Cantrell Primary Care Provider: Ervin Donnelly Consulting Providers: Antoni Marrero ; Pete Bazzi ; Marie Langley NP ; Peter Orta Discharge Orders/Prescriptions Prescriptions: New doxycycline monohydrate 100 mg Capsule 100 mg PO BID Qty: 20 RF: 0 Mucus Relief ER 1,200 mg Tablet Extended Release 12hr 1,200 mg PO BID Qty: 14 RF: 0 ascorbic acid (vitamin C) [Vitamin C] 500 mg tablet 500 mg PO DAILY Qty: 1 RF: 0 prednisone 20 mg tablet 40 mg PO DAILY Qty: 10 RF: 0 Continued famotidine 40 mg tablet 40 mg PO QHS RF: 0 esomeprazole magnesium [Nexium] 40 mg capsule,delayed release(DR/EC) 40 mg PO QAM RF: 0 apixaban 5 mg tablet 5 mg PO BID Qty: 180 RF: 4 levothyroxine 25 mcg tablet 25 mcg PO DAILY@0600 RF: 0 potassium chloride 20 MEQ tablet 20 meq PO DAILY Qty: 30 RF: 0 furosemide 40 mg tablet 40 mg PO BID RF: 0 hydrocodone-acetaminophen 5-300 mg Tablet 1 tab PO Q6H PRN (Reason: Pain) RF: 0 ondansetron HCl 4 mg tablet 4 mg PO Q8H PRN (Reason: Nausea) RF: 0 flecainide 50 mg tablet 50 mg PO BID RF: 0 cholecalciferol (vitamin D3) 50 mcg (2,000 unit) Capsule 50 mcg PO DAILY RF: 0 acidophilus-pectin, citrus 1 TABLET tablet 1 tablet PO BID RF: 0 diltiazem HCl 180 mg capsule,extended release 24hr 180 mg PO DAILY Qty: 90 RF: 3 Advair HFA 230-21 mcg/actuation HFA aerosol inhaler 2 puff INHALATION BID Qty: 3 RF: 11 montelukast 10 mg tablet 10 mg PO QHS Qty: 90 RF: 11 albuterol sulfate 2.5 mg /3 mL (0.083 %) solution for nebulization 2.5 mg INHALATION Q4H PRN Qty: 180 RF: 6 Changed ferrous sulfate 325 MG tablet 325 mg PO QODAY Qty: 0 RF: 0 Referrals / Follow Up: Ervin Donnelly MD [Primary Care Provider] - In 1 Week Pete Bazzi DO [STAFF PHYSICIAN] - 10/08/20 10:45 am (Follow with Dr. Marie Langley, CHAD in pulmonary clinic) Disposition Disposition (needs filled in before D/C Order can be placed): Home, Self Care Charges/Coding Visit Charges Inpatient E&M: 14427 Disch Hosp
--- NOTE | 2020-09-22 12:13 | CASEMGMT ---
Pt screened with [facility] Palliative Care Screening Tool due to strata 4, pt met criteria, no order received.
[2020-09-22] MEDS: Doxycycline 100 MG CAPSULE PO (12:31)
--- NOTE | 2020-09-22 13:24 | CASEMGMT ---
MARIO CM in to pt room, pt states she is doing well. She is ambulating without the walker and did not require home O2. Pt denies any needs for HHC.
--- NOTE | 2020-09-22 14:08 | CON.PCM.ID_ITS ---
Assessment & Plan Assessment/Plan (1) Bronchiectasis with (acute) exacerbation: PLAN: sputum with MRSA. Improved. Ok for home with 10 more days po doxy. Will follow, thank you, d/w Dr. Bazzi (2) Pneumonia: HPI Consult Data Date of Consult: 09/22/20 HPI Narrative HPI Narrative: LAURA SERRANO, is a 65 F with bronchiectasis who presented 09/19 with two days fever, chills, cough with sputum, and dyspnea. No dysuria. No sick contacts, no change in taste or smell, is covid vaccinated. Came to ED, admitted on vanc/zosyn, feeling much better. Full ROS performed and neg except as noted above. [facility] Medical History Abnormal chest CT Acute bronchiolitis Acute respiratory failure ALEXYS (acute kidney injury) Allergic rhinitis Aspiration into airway Asthma Atrial fibrillation with rapid ventricular response Atrial tachycardia Benign essential HTN Bronchiectasis Cellulitis of right lower extremity Chronic diastolic heart failure Coarse tremors COLD (chronic obstructive lung disease) Congestive heart failure (CHF) Diabetes mellitus DVT (deep venous thrombosis) Former smoker Gastroesophageal reflux disease HCAP (healthcare-associated pneumonia) High cholesterol History of DVT (deep vein thrombosis) 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 Hx pulmonary embolism Hyperlipidemia Hypertension Hypothyroidism Insomnia Kidney disease Lung nodule Morbid obesity MRSA pneumonia Obesity Paroxysmal atrial fibrillation Paroxysmal atrial tachycardia Pneumonia Precordial chest pain Pulmonary embolism PVD (peripheral vascular disease) Right foot pain Severe sepsis Steroid myopathy Tachycardia Thrush, oral Umbilical hernia Venous thromboembolism (VTE) Weakness Home Medications potassium chloride 20 meq PO DAILY #30 tab 12/20/19 [Rx Last Taken 09/18/20] levothyroxine 25 mcg tablet 25 mcg PO DAILY@0600 01/04/20 [History Last Taken 09/18/20] fluticasone propionate 230 mcg-salmeterol 21 mcg/actuation HFA inhaler 2 puff INHALATION BID #3 device 03/11/20 [Rx Last Taken 09/18/20] montelukast 10 mg tablet 10 mg PO QHS #90 tab 03/11/20 [Rx Last Taken 09/18/20] albuterol sulfate 2.5 mg INHALATION Q4H PRN #180 vial 03/17/20 [Rx Last Taken 09/18/20] apixaban 5 mg tablet 5 mg PO BID #180 tab 04/02/20 [Rx Last Taken 09/18/20] esomeprazole magnesium 40 mg capsule,delayed release 40 mg PO QAM cap 04/02/20 [History Last Taken 09/18/20] famotidine 40 mg tablet 40 mg PO QHS 04/02/20 [History Last Taken 09/18/20] acidophilus-pectin, citrus 1 tablet PO BID 09/19/20 [History Last Taken 09/18/20] cholecalciferol (vitamin D3) 50 mcg PO DAILY 09/19/20 [History Last Taken 09/18/20] flecainide 50 mg PO BID 09/19/20 [History Last Taken 09/18/20] furosemide 40 mg PO BID 09/19/20 [History Last Taken 09/18/20] hydrocodone-acetaminophen 1 tab PO Q6H PRN 09/19/20 [History Last Taken 09/19/20 04:00] ondansetron HCl 4 mg PO Q8H PRN 09/19/20 [History Last Taken 09/19/20 04:00] ascorbic acid (vitamin C) [Vitamin C] 500 mg PO DAILY #1 tab 09/22/20 [Rx Last Taken Unknown] diltiazem HCl 180 mg PO DAILY #90 cap 09/22/20 [Rx Last Taken 09/18/20] doxycycline monohydrate 100 mg PO BID #20 cap 09/22/20 [Rx Last Taken Unknown] ferrous sulfate 325 mg PO QODAY #0 tab 09/22/20 [Rx Last Taken 09/18/20] guaifenesin [Mucus Relief ER] 1,200 mg PO BID #14 tab 09/22/20 [Rx Last Taken Unknown] prednisone 40 mg PO DAILY #10 tab 09/22/20 [Rx Last Taken Unknown] Allergy/AdvReac Type Severity Reaction Status Date / Time adhesive Allergy SKIN Verified 09/19/20 09:36 TEARS. PAPER TAPE OK azithromycin [From Zithromax] Allergy Rash Verified 09/19/20 09:36 cefuroxime sodium Allergy Rash Verified 09/19/20 09:36 [From Zinacef] clindamycin Allergy Hives Verified 09/19/20 09:36 nitrofurantoin Allergy Rash Verified 09/19/20 09:36 macrocrystalline [From Macrodantin] Sulfa (Sulfonamide Allergy Rash Verified 09/19/20 09:36 Antibiotics) atenolol AdvReac Severe Peripheal Verified 09/19/20 09:36 edema & cough metoprolol [From Toprol XL] AdvReac Severe Peripheral Verified 09/19/20 09:36 edema & cough duloxetine [From Cymbalta] AdvReac Intermediate made me Verified 09/19/20 09:36 feel really sick Corticosteroids AdvReac Other Verified 09/19/20 16:37 (Glucocorticoids) oxycodone HCl [From Percocet] AdvReac Vomiting Verified 09/19/20 09:36 Family History Mother Hypertension Diabetes Heart disease Pulmonary embolism Father Perforated ulcer Respiratory failure Sister Asthma Hypertension Surgical History H/O section H/O foot surgery H/O hernia repair H/O shoulder surgery H/O: hysterectomy History of appendectomy History of cardioversion (~12/2016) History of left heart catheterization S/P hysterectomy Social History Smoking Status: Former smoker quit date: 02/14/75 pack-years: 3 second hand exposure: No alcohol intake: never substance use type: does not use caffeine: No what type of physical activity do you participate in: none Physical Exam Const alert, oriented x3 and no apparent distress General Appearance: cooperative Exam Limitations: no limitations HEENT normocephalic and head/scalp atraumatic Eyes PERRL and EOMs intact bilaterally Neck supple and No nodes Resp Auscultation: rhonchi Cardio regular rate and regular rhythm GI normal to inspection, nondistended, normoactive bowel sounds Extremity no clubbing, cyanosis or edema Skin no rashes or lesions noted Neuro CN's II-XII intact bilaterally Medical Records Data Medical Nutrition Assessment Dietitian: Nutrition Therapy Diagnosis Start: 09/20/20 12:29 Freq: Status: Active Protocol: Document 09/20/20 12:40 IVELISSE (Rec: 09/20/20 12:40 IVELISSE [id number]) Nutrition Malnutrition Evidence of Malnutrition Exists No Clinical Problem Altered Nutrient-Related Laboratory Values Etiology related to endocrine dysfunction Signs/Symptoms as evidenced by gluc 136 Status Active Problem Recommendation Dietitian Recommendations/Changes Will change diet to Cardiac / Consistent CHO d/t past medical history and BMI Will provide diet education prior to discharge if warranted by patient Lab / Micro Data Result Diagrams: 09/22/20 07:34 09/22/20 07:34 Labs: Laboratory Results - last 24 hr 09/22/20 07:34: Vancomycin Trough 19.8 H 09/22/20 07:34: WBC 7.2, RBC 3.35 L, Hgb 9.8 L, Hct 31.8 L, MCV 94.9, MCH 29.3, MCHC 30.8 L, RDW Std Deviation 48.7 H, RDW Coeff of Lanre 13.9, Plt Count 392, MPV 9.9, Immature Gran % (Auto) 1.100 H, Neut % (Auto) 87.1 H, Lymph % (Auto) 7.7 L, Mellette % (Auto) 4.0, Eos % (Auto) 0.0, Baso % (Auto) 0.1, Absolute Neuts (auto) 6.3, Absolute Lymphs (auto) 0.56 L, Nucleated RBC % 0 09/22/20 07:34: Sodium 137, Potassium 3.5, Chloride 103, Carbon Dioxide 25.0, Anion Gap 9, BUN 28 H, Creatinine 1.22 H, Estim Creat Clear Calc 34.23, Est GFR (MDRD) Af Amer 57 L, Est GFR (MDRD) Non-Af 47 L, BUN/Creatinine Ratio 23.0 H, Glucose 257 H, Calcium 9.7 Micro: Microbiology 09/19/20 22:26 Sputum, Expectorated/Coughed Gram Stain - Final 09/19/20 22:26 Sputum, Expectorated/Coughed Respiratory Culture - Final Meth. resistant Staph. aureus
[2020-09-22] MEDS: 0.9% Saline Lock 10 ML Syringe IV (14:12)
--- NOTE | 2020-09-22 15:57 | PHA.DC.MC ---
Pharmacy Service has performed discharge medication reconciliation and counseling for this patient. 1. ASCORBIC ACID 500MG PO DAILY 2. DOXYCYCLINE 100MG PO BID X 10 DAYS 3. GUAIFENESIN 1200MG PO BID X 7 DAYS 4. PREDNISONE 40MG PO DAILY X 5 DAYS The patient's discharge medication list was reviewed for discrepancies and discrepancies were resolved. Home Medications potassium chloride 20 meq PO DAILY #30 tab 12/20/19 levothyroxine 25 mcg tablet 25 mcg PO DAILY@0600 01/04/20 fluticasone propionate 230 mcg-salmeterol 21 mcg/actuation HFA inhaler 2 puff INHALATION BID #3 device 03/11/20 montelukast 10 mg tablet 10 mg PO QHS #90 tab 03/11/20 albuterol sulfate 2.5 mg INHALATION Q4H PRN #180 vial 03/17/20 apixaban 5 mg tablet 5 mg PO BID #180 tab 04/02/20 esomeprazole magnesium 40 mg capsule,delayed release 40 mg PO QAM cap 04/02/20 famotidine 40 mg tablet 40 mg PO QHS 04/02/20 acidophilus-pectin, citrus 1 tablet PO BID 09/19/20 cholecalciferol (vitamin D3) 50 mcg PO DAILY 09/19/20 flecainide 50 mg PO BID 09/19/20 furosemide 40 mg PO BID 09/19/20 hydrocodone-acetaminophen 1 tab PO Q6H PRN 09/19/20 ondansetron HCl 4 mg PO Q8H PRN 09/19/20 ascorbic acid (vitamin C) [Vitamin C] 500 mg PO DAILY #1 tab 09/22/20 diltiazem HCl 180 mg PO DAILY #90 cap 09/22/20 doxycycline monohydrate 100 mg PO BID #20 cap 09/22/20 ferrous sulfate 325 mg PO QODAY #0 tab 09/22/20 guaifenesin [Mucus Relief ER] 1,200 mg PO BID #14 tab 09/22/20 prednisone 40 mg PO DAILY #10 tab 09/22/20 The patient was counseled on the following discharge medications and changes in medications for homegoing were reviewed. The Reason for Use, instructions for use, and potential side effects were reviewed for all new medications. The patient's questions regarding all of their medications were answered. The patient was able to verbally demonstrate an understanding of their discharge medications.
--- NOTE | 2020-09-23 14:40 | CASEMGMT ---
MARIO HURST Discharge Follow Up Phone Call: RON: Humphrey Strata:4 Call Date: 09/23/20 Discharge Date: 09/22/20 Time of Call:1435 Duration:3 min Admitting Dx:bronchiectasis MARIO HURST completed follow up phone call after recent hospitalization. Pt states she is doing well, she is taking things slow and easy, pacing herself. She was able to hand picker her rx. States she will have a family member hand picker her Vitamin C over the counter. Pt scheduled her follow up appts. Dr. Donnelly on 10/07/[address] Bazzi on 10/08/20. She was unable to get in any sooner. Pt states she has a call into 's nurse to verify her lasix dose. She states she is awaiting a call back. Pt denies any questions regarding her dc instructions. Pt has no further questions or concerns at this time.
== END 2020-09-22 15:58 | disposition home or self-care (01) | DRG 190 ==
LOC: ED 14:54 → MS3 15:20
PROVIDERS: Internal Medicine Critical Care Medicine; Admitting Provider Internal Medicine; Emergency Provider Emergency Medicine; PCP Family Medicine; Visit Provider Internal Medicine
DX: J47.1 Bronchiectasis with (acute) exacerbation (principal); J96.21 Acute and chronic respiratory failure with hypoxia; Z68.42 Body mass index [BMI] 45.0-49.9, adult; I50.32 Chronic diastolic (congestive) heart failure; G89.29 Other chronic pain; A49.02 Methicillin resistant Staphylococcus aureus infection, unspecified site; M25.552 Pain in left hip; I48.0 Paroxysmal atrial fibrillation; J47.0 Bronchiectasis with acute lower respiratory infection; E11.51 Type 2 diabetes mellitus with diabetic peripheral angiopathy without gangrene; E78.5 Hyperlipidemia, unspecified; E66.01 Morbid (severe) obesity due to excess calories; I11.0 Hypertensive heart disease with heart failure; E78.00 Pure hypercholesterolemia, unspecified; M41.9 Scoliosis, unspecified; E03.9 Hypothyroidism, unspecified; J45.40 Moderate persistent asthma, uncomplicated; Z87.891 Personal history of nicotine dependence; G47.33 Obstructive sleep apnea (adult) (pediatric); Z86.14 Personal history of Methicillin resistant Staphylococcus aureus infection; Z22.39 Carrier of other specified bacterial diseases; G47.00 Insomnia, unspecified; K21.9 Gastro-esophageal reflux disease without esophagitis; Z79.01 Long term (current) use of anticoagulants; Z79.890 Hormone replacement therapy; Z82.49 Family history of ischemic heart disease and other diseases of the circulatory system; Z86.711 Personal history of pulmonary embolism; Z82.5 Family history of asthma and other chronic lower respiratory diseases; Z86.718 Personal history of other venous thrombosis and embolism; Z88.1 Allergy status to other antibiotic agents; Z88.2 Allergy status to sulfonamides; Z88.3 Allergy status to other anti-infective agents; Z88.5 Allergy status to narcotic agent; Z90.49 Acquired absence of other specified parts of digestive tract; Z90.710 Acquired absence of both cervix and uterus
CPT/HCPCS: 36415; 71045; 73502; 80048; 80053; 80202; 81001; 83605; 84145; 85025; 87040; 87070; 87077; 87086; 87088; 87186; 87205; 87426; 87804; 93005; 94640; 94667; 94668; 97110; 97116; 97162; 97166; 97530; 97535; 99285; J7030; J7040; A4216; J2405

== ENCOUNTER → 2020-09-26 17:34 | Outpatient (CLI) | payer MEDICARE, OTHER, SELFPAY ==
[2020-08-21 13:12] VITALS: BMI 45.3
[2020-09-19 16:11] VITALS: BMI 45.9
--- NOTE | 2020-09-26 18:15 | MRI_ITS ---
STUDY: MRI LEFT HIP REASON FOR EXAM: Female, 65 years old. LEFT hip pain, NKI TECHNIQUE: Standardized fat and water weighted pulse sequences were obtained in all 3 orthogonal planes. COMPARISON: X-ray dated 09/19/2020. FINDINGS: Moderate/severe left hip cartilage loss. Extensive left femoral head avascular necrosis involving approximately 80 % of the weight-bearing surface. Extensive left femoral head reactive bone marrow edema/contusion. No displaced fracture. No dislocation. Minimal pubic symphysis arthrosis. Moderate right hip osteoarthritis. Mild sacroiliac joint arthrosis, left slightly greater than right. Mild lumbar spine arthrosis. Small volume left hip joint effusion. No bursitis. Capsular ligaments intact. Bilateral hip labral degeneration with left-sided inferior labral tear (coronal image 16 series 5). Normal hamstring tendon. Normal gluteus medius/minimus tendons. Normal rectus femoris tendon. Normal iliopsoas tendon. Normal abductor tendons. Normal muscles. Visualized intra-abdominal/pelvic contents within normal limits. Hysterectomy. No solid, cystic or lipomatous lesions. No pathologically enlarged lymph nodes. MRI/Lower Ext Joint Only (Routine) IMPRESSION: Moderate/severe left hip cartilage loss with extensive left femoral head avascular necrosis Bilateral hip labral degeneration with left-sided inferior labral tear Small volume left hip joint effusion Additional degenerative changes, as above Electronically Signed: Joo Chiang DO at 8:06 EDT Tel , Service support ,
== END ==
PROVIDERS: PCP Family Medicine; Referring Provider Family Medicine; Visit Provider Family Medicine
DX: M25.552 Pain in left hip (principal)
CPT/HCPCS: 73721

== ENCOUNTER → 2020-10-02 16:24 | Outpatient (CLI) | payer MEDICARE, OTHER, SELFPAY ==
[2020-10-02 17:39] LABS: Hematocrit 35.5 % (37-47); Hemoglobin 11.1 g/dL (12.0-15.0); Mean Corp Hgb Conc 31.3 g/dL (32-36); Mean Corpuscular Hgb 29.8 pg (27.0-32.0); Mean Corpuscular Volume 95.2 fL (81-99); Mean Platelet Vol. 10.6 fl (6.2-12.0); Platelet Count 496 K/mm3 (150-450); RBC Distribution Width CV 15.1 % (11.6-14.6); RBC Distribution Width SD 52.2 fl (35.1-43.9); Red Blood Count 3.73 M/mm3 (4.2-5.4); White Blood Count 10.5 K/mm3 (4.4-11.0)
[2020-10-02 17:57] LABS: Anion Gap 8 (5-15); BUN 33 mg/dL (7-18); BUN/Creat Ratio 22.1 RATIO (10-20); Calcium,Total 9.2 mg/dL (8.5-10.1); Chloride 102 mmol/L (98-107); Creatinine, Serum 1.49 mg/dL (0.55-1.02); EST Glomerular Filtration Rate 37 mL/min (>60); Est Glom Filt Rate - Afr Amer 45 mL/min (>60); Glucose 103 mg/dL (74-106); Potassium 3.3 mmol/L (3.5-5.1); Sodium Level 139 mmol/L (136-145)
== END ==
PROVIDERS: PCP Family Medicine; Referring Provider Family Medicine; Visit Provider Family Medicine
DX: D64.9 Anemia, unspecified (principal); E87.6 Hypokalemia
CPT/HCPCS: 36415; 80048; 85027

== ENCOUNTER → 2020-11-24 11:34 | Outpatient (CLI) | payer MEDICARE, OTHER, SELFPAY ==
[2020-11-24 15:38] LABS: AST(SGOT) 18 U/L (15-37); Alanine Aminotransfer ALT/SGPT 23 U/L (13-56); Albumin, Serum 3.4 g/dL (3.2-5.0); Alkaline Phosphatase 137 U/L (45-117); Bilirubin, Direct 0.08 mg/dL (0.00-0.30); Cholesterol 236 mg/dL (200); Globulin 5.3 g/dL (2.2-4.2); High Density Lipoprotein 43 mg/dL; Protein, Total 8.7 g/dL (6.4-8.2); Triglycerides 312 mg/dL; Very Low Density Lipoprotein 62 mg/dL (5-40)
== END ==
PROVIDERS: Physician Assistant Medical; PCP Family Medicine; Visit Provider Family Medicine
DX: E78.5 Hyperlipidemia, unspecified (principal); N39.0 Urinary tract infection, site not specified
CPT/HCPCS: 36415; 80061; 80076; 87086; 87088; 87186

== ENCOUNTER 2020-12-04 10:30 | Outpatient (RCR) | payer MEDICARE, OTHER, SELFPAY ==
--- NOTE | 2020-10-23 13:31 | HP.PTEVAL_ITS ---
Patient's Visit Information LAURA SERRANO is a 65 year old F referred to Physical Therapy by Dr. Gucci Daniels MD with a diagnosis of Unilateral primary osteoarthritis left hip, M16.12. Date of Evaluation: 10/23/20 Physical Therapist: Rolo Menard - Visit Plan Frequency: 2x /Week Duration: 6 Weeks Plan: Continue with LE strengthening especially hip and quad strengthening and balance exercises. Use manual therapy and modalities as needed for pain control. Pt. presents at this time with OA of her left hip. - Subjective Pt. is a 65 y.o. female who has been having left hip pain off and on for several of years. Pt. notes in June her left hip pain got worse with no specific injury that she is aware of. Pt. PLOF includes history of left hip pain off and on in the past. She had recent MRI of her left hip which showed avascular necrosis of her hip. She also has chronic back pain as well. Pt. has been ambulating with rolling walker since the end of August. Pt. denies any falls in the last six months but does feel off balance at times. She has difficulty with standing longer than 10 minutes, walking longer than 100 ft, sitting longer than 30 minutes, getting up from a chair, squatting, LE dressing, ascending/descending stairs, sleeping, getting into/out of the bathtub, and housework. 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 Her goal with physical therapy is to get stronger. She has had previous physical therapy for her right shoulder. Pt. rates left hip pain at 5/10 currently, at worst 10/10, at best 4/10 and describes the pain as achy and sharp. Pt. is currently taking Hydrocodone for pain. Her PMH includes A-fib, type II diabetic, former smoker quit 25 years ago, right shoulder replacement, chronic back pain, right foot surgery, hysterectomy, appendectomy, abdominal hernia repair, COPD, asthma, and chronic kidney disease. Pt. lives with her daughter in a one story home with basement and two steps to enter with handrail on left side. Her hobbies include shopping, reading, and sewing. - Objective Posture- Fair posture with slight lean to the right. Palpation- Tenderness over lumbar spine on left side and over left hip joint. Lumbar AROM- flexion- mod restriction and moderate pain in low back and left hip/groin. extension- min restriction and mild pain in low back and left hip/groin. SB to left- WNL and mild pain in low back. SB to right- WNL and mild pain in low back. rotation- min restriction bilaterally and mild pain in low back. Left hip PROM- Limited for all motions. Right hip PROM- WNL for all motions. Left hip flexion [3-/5], abduction [3-/5], adduction [3-/5], extension [3-/5], knee flexion [4/5], knee extension [4/5], ankle DF [4/5], PF [4/5]. Right hip flexion [4/5], abduction [4/5], adduction [4+/5], extension [4/5], knee flexion [4+/5], knee extension [4+/5], ankle DF [4+/5], PF [4+/5]. Tandem stance on right [3 secs ], left [2 secs ]. SLS on right [unable ], left [unable]. Special test- Hip quadrant [+], Hip scour [+], OCTAVIO's [+]. 30 sec sit to stand test- 7 times with no arm assist. Gait- Pt. ambulates with rolling walker and forward flexed posture with slight antalgic gait pattern on left. Stairs- Pt. ascends/descends stairs with step to gait pattern and unilateral handrail. - Balance/Special Test Scores Lower Extremity Functional Score: 11 - Goals Goal 1:: Pt. will improve left LE strength to 4-/5 for all motions in order to improve stability and balance. Goal Time Frame: 4-6 Weeks Goal 2:: Pt. will be able to stand/walk for at least 10 minutes with least restrictive device in order to improve endurance. Goal Time Frame: 4-6 Weeks Goal 3:: Pt. will be able to complete at least 10 sit to stands in 30 secs in order to improve mobility. Goal Time Frame: 4-6 Weeks Goal 4:: Pt. will be able to sit for at least 30 minutes with left hip pain < 3/10. Goal Time Frame: 4-6 Weeks Goal 5:: Pt. will rate left hip pain at worst at 5/10 with ADL's. Goal Time Frame: 4-6 Weeks Goal 6:: Pt. will improve LEFS score by at least 10% in order to improve overall mobility and function. Goal Time Frame: 4-6 Weeks - Rehabilitation Potential Physical Therapy Diagnosis: Decreased left hip ROM, LE strength, balance, and pain Rehabilitation Potential: Fair - Anticipated Interventions Patient/Client Instruction: Educate patient on: Condition, Plan of Care, Benefits of Fitness Program For the Purpose of:: To decrease pain, To decrease swelling/inflammation, To increase ROM, To improve ability to perform ADL's, To increase flexibility/ROM, To improve endurance, To improve balance, To assume or resume ADL's, To improve health and function, To improve tolerance to ADL's Therapeutic Exercise to Include: Strength training, Endurance training, Balance training, Body mechanics, Flexibilty training, Gait and locomotor training, Passive ROM, Active ROM, Dynamic Lumbar Stabilization Comment: Focus on hip and quad strengthening. For the Purpose of:: To decrease pain, To decrease swelling/inflammation, To increase ROM, To improve ability to perform ADL's, To increase tolerance to activity/condition/position, To improve performance and independence with ADL's, To increase flexibility/ROM, To assume or resume ADL's, To improve tolerance to ADL's Functional Training to Include: ADL Training, Gait training For the Purpose of:: To decrease pain, To decrease swelling/inflammation, To increase ROM, To improve ability to perform ADL's, To improve performance and independence with ADL's, To increase flexibility/ROM, To improve endurance, To improve balance, To improve health and function, To improve tolerance to ADL's Manual Therapy Techniques to Include: Massage, Mobilization, Passive ROM, Soft tissue mobilization For the Purpose of:: To decrease pain, To decrease swelling/inflammation, To increase ROM, To improve ability to perform ADL's, To improve performance and independence with ADL's, To increase flexibility/ROM, To assume or resume ADL's, To improve health and function, To improve tolerance to ADL's Assistive Devices: Cane, Wheeled walker For the Purpose of:: To decrease pain, To decrease swelling/inflammation, To increase ROM, To improve performance and independence with ADL's, To improve balance, To improve safety with gait, To assume or resume ADL's, To improve tolerance to ADL's TENS: Yes IF ES: Yes Cryotherapy (ice pack, ice massage): Yes For the Purpose of:: To decrease pain, To decrease swelling/inflammation, To increase ROM, To improve ability to perform ADL's, To increase flexibility/ROM, To improve tolerance to ADL's Thank you for the opportunity to evaluate your patient. For Medicare and Medicare HMO plans, please review the plan of care and approve it. It will need to be FAXED BACK to us at [phone] for Medicare purposes. For Medicare only, by signing this I certify the plan of care. Please let me know if there are questions or concerns regarding this plan of care. Physician Signature: Date:
--- NOTE | 2020-12-04 11:12 | HP.PTREVAL ---
Dr. Gucci Daniels MD, It has been my pleasure to treat ALEJANDRO SERRANO over the last 11 visits for Unilateral primary osteoarthritis left hip, M16.12. Please see the progress note below for an update on the physical therapy plan of care! Subjective: Pt. states that she was doing well with therapy until last week her sciatica flared up on her. She is to have an appointment with Dr. Reynoso in December. She reports that she feels like she is about the same if not just a little better since starting therapy. She reports that she still has pain with walking and also still getting up from a chair. Objective/Function: Alejandro has come to 11 sessions of physical therapy focusing on improving LE strength and flexibility. Reviewed pt. goals for therapy and she has met some goals and not met other goals for therapy. Discussed with pt. about continuing with therapy and possibly trying aquatic therapy but she requested to wait until her follow up with Dr. Reynoso next month. Educated pt. to continue with her HEP at this time. Plan Plan: Pt. to continue with her exercises at home and will wait to schedule anymore therapy until her follow up with Dr. Reynoso. Balance/Gait/Functional tests - Balance/Special Test Scores Lower Extremity Functional Score: 11 Goals Goal 1:: Pt. will improve left LE strength to 4-/5 for all motions in order to improve stability and balance. Goal Time Frame: 4-6 Weeks Goal Progress: Goal Met Goal 2:: Pt. will be able to stand/walk for at least 10 minutes with least restrictive device in order to improve endurance. Goal Time Frame: 4-6 Weeks Goal Progress: Goal Met Goal 3:: Pt. will be able to complete at least 10 sit to stands in 30 secs in order to improve mobility. Goal Time Frame: 4-6 Weeks Goal Progress: Goal Met Goal 4:: Pt. will be able to sit for at least 30 minutes with left hip pain < 3/10. Goal Time Frame: 4-6 Weeks Goal Progress: Goal Met Goal 5:: Pt. will rate left hip pain at worst at 5/10 with ADL's. Goal Time Frame: 4-6 Weeks Goal Progress: Not Progressing Goal 6:: Pt. will improve LEFS score by at least 10% in order to improve overall mobility and function. Goal Time Frame: 4-6 Weeks Anticipated Interventions Patient/Client Instruction: Educate patient on: Condition, Plan of Care, Benefits of Fitness Program For the Purpose of:: To decrease pain, To decrease swelling/inflammation, To increase ROM, To improve ability to perform ADL's, To increase flexibility/ROM, To improve endurance, To improve balance, To assume or resume ADL's, To improve health and function, To improve tolerance to ADL's Therapeutic Exercise to Include: Strength training, Endurance training, Balance training, Body mechanics, Flexibilty training, Gait and locomotor training, Passive ROM, Active ROM, Dynamic Lumbar Stabilization Comment: Focus on hip and quad strengthening. For the Purpose of:: To decrease pain, To decrease swelling/inflammation, To increase ROM, To improve ability to perform ADL's, To increase tolerance to activity/condition/position, To improve performance and independence with ADL's, To increase flexibility/ROM, To assume or resume ADL's, To improve tolerance to ADL's Functional Training to Include: ADL Training, Gait training For the Purpose of:: To decrease pain, To decrease swelling/inflammation, To increase ROM, To improve ability to perform ADL's, To improve performance and independence with ADL's, To increase flexibility/ROM, To improve endurance, To improve balance, To improve health and function, To improve tolerance to ADL's Manual Therapy Techniques to Include: Massage, Mobilization, Passive ROM, Soft tissue mobilization For the Purpose of:: To decrease pain, To decrease swelling/inflammation, To increase ROM, To improve ability to perform ADL's, To improve performance and independence with ADL's, To increase flexibility/ROM, To assume or resume ADL's, To improve health and function, To improve tolerance to ADL's Assistive Devices: Cane, Wheeled walker For the Purpose of:: To decrease pain, To decrease swelling/inflammation, To increase ROM, To improve performance and independence with ADL's, To improve balance, To improve safety with gait, To assume or resume ADL's, To improve tolerance to ADL's TENS: Yes IF ES: Yes Cryotherapy (ice pack, ice massage): Yes For the Purpose of:: To decrease pain, To decrease swelling/inflammation, To increase ROM, To improve ability to perform ADL's, To increase flexibility/ROM, To improve tolerance to ADL's Please do not hesitate to contact me at [phone] by phone or if you have questions or concerns regarding this new plan of care! Sincerely, Rolo Menard
== END 2020-12-04 19:00 | disposition home or self-care (01) ==
LOC: PT 10:30
PROVIDERS: PCP Family Medicine; Referring Provider Orthopaedic Surgery; Visit Provider Orthopaedic Surgery
DX: M16.12 Unilateral primary osteoarthritis, left hip (principal)
CPT/HCPCS: 97110; 97140; 97162

== ENCOUNTER → 2021-01-26 10:43 | Outpatient (CLI) | payer MEDICARE, OTHER, SELFPAY ==
[2021-01-26 12:52] LABS: Anion Gap 8 (5-15); BUN 26 mg/dL (7-18); Calcium,Total 9.2 mg/dL (8.5-10.1); Chloride 105 mmol/L (98-107); Creatinine, Serum 1.63 mg/dL (0.55-1.02); EST Glomerular Filtration Rate 33 mL/min (>60); Est Glom Filt Rate - Afr Amer 41 mL/min (>60); Glucose 95 mg/dL (74-106); Potassium 4.1 mmol/L (3.5-5.1); Sodium Level 139 mmol/L (136-145)
== END ==
PROVIDERS: PCP Family Medicine; Visit Provider Family Medicine
DX: I10 Essential (primary) hypertension (principal)
CPT/HCPCS: 36415; 80048

== ENCOUNTER → 2021-01-29 11:36 | Outpatient (CLI) | payer MEDICARE, OTHER, SELFPAY ==
[2021-01-29 14:08] LABS: Color, Urine Yellow (Yellow); Glucose, Dipstick Normal (Normal); Ketone-Dipstick 5 mg/dl (Negative); Leukocyte Esterase-Dipstick 500 /ul (Negative); Nitrite-Dipstick Positive (Negative); Occult Blood-Urine 50 /ul (Negative); Protein-Dipstick 30 mg/dl (Negative); Specific Gravity, Urine 1.015 (1.002-1.030); Urine Clarity Cloudy (Clear); Urine Urobilinogen 1 mg/dl (Normal)
[2021-01-29 14:11] LABS: Urine Bilirubin Dipstick 1 mg/dL (Negative)
== END ==
PROVIDERS: PCP Family Medicine; Referring Provider Family Medicine; Visit Provider Family Medicine
DX: N18.30 Chronic kidney disease, stage 3 unspecified (principal); N28.9 Disorder of kidney and ureter, unspecified
CPT/HCPCS: 81002; 87086; 87088; 87186

== ENCOUNTER 2021-02-09 09:52 | Outpatient (RCR) | payer MEDICARE, OTHER, SELFPAY | END 2021-02-13 23:59 | LOC: NS 09:52 | PROVIDERS: PCP Family Medicine; Visit Provider Specialist | DX: Z71.3 Dietary counseling and surveillance (principal); E66.8 Other obesity; E11.9 Type 2 diabetes mellitus without complications; Z68.42 Body mass index [BMI] 45.0-49.9, adult | CPT/HCPCS: 36415; 80048; 97802 ==

== ENCOUNTER → 2021-02-09 11:40 | Outpatient (CLI) | payer MEDICARE, OTHER, SELFPAY ==
[2021-02-09 12:31] LABS: Anion Gap 7 (5-15); BUN 31 mg/dL (7-18); BUN/Creat Ratio 18.2 RATIO (10-20); Calcium,Total 9.1 mg/dL (8.5-10.1); Chloride 107 mmol/L (98-107); EST Glomerular Filtration Rate 32 mL/min (>60); Est Glom Filt Rate - Afr Amer 39 mL/min (>60); Glucose 104 mg/dL (74-106); Potassium 3.7 mmol/L (3.5-5.1); Sodium Level 142 mmol/L (136-145)
== END ==
PROVIDERS: PCP Family Medicine; Visit Provider Family Medicine
DX: N18.30 Chronic kidney disease, stage 3 unspecified (principal)
CPT/HCPCS: 36415; 80048

== ENCOUNTER → 2021-02-11 15:05 | Outpatient (CLI) | payer MEDICARE, OTHER, SELFPAY | PROVIDERS: PCP Family Medicine; Visit Provider Family Medicine | DX: J47.9 Bronchiectasis, uncomplicated (principal) | CPT/HCPCS: 87635; U0005; U0003 ==

== ENCOUNTER 2021-03-04 13:58 | Outpatient (RCR) | payer MEDICARE, OTHER, SELFPAY | END 2021-03-16 23:59 | LOC: DC 13:58 | PROVIDERS: PCP Family Medicine; Visit Provider Specialist | DX: E66.8 Other obesity (principal); Z68.42 Body mass index [BMI] 45.0-49.9, adult; E11.9 Type 2 diabetes mellitus without complications | CPT/HCPCS: G0108 ==

== ENCOUNTER 2021-03-24 11:00 | Outpatient (RCR) | payer MEDICARE, OTHER, SELFPAY ==
--- NOTE | 2021-03-09 08:36 | HP.PTEVAL_ITS ---
Patient's Visit Information LAURA SERRANO is a 66 year old F referred to Physical Therapy by Dr. Nathaniel Reynoso MD with a diagnosis of Idiopathic aseptic necrosis of L femur. Date of Evaluation: 02/27/21 Physical Therapist: Johnny Soni DPT - Visit Plan Frequency: 2x /Week Duration: 4-6 Weeks Plan: Start with land based exercises including mat exercises progressing as tolerated. If not tolerating and or she receives clothing to do aquatic therapy I recommend she start this as this will allow for better tolerance to ROM and functional movements. - Subjective Pt is here for her initial evaluation with diagnosis of idiopathic aseptic necrosis of L femur. Pt. reports having L hip pain for a few months now and did PT previously which did help a bit, but over the past few weeks her hip as become very painful. She did have xrays showing progression of her OA. Pt. is scheduled to have a AVNI on the L side, but not for a few months. Pt. is now having trouble walking, uses a walker. She reports barely being able to lift her leg. She denies NT, but reports intense pain at anterior hip and lateral aspects that does extend down her leg. She is hopeful to reduce her pain and walk better prior to having surgery. She is hopeful to do aquatic therapy, but is in search of proper attire. - Pain L hip Pain Intensity (Out of 10): 8 Pain Intensity Range: 6, 9 - Objective POSTURE: Pt. has general flexed posture and has increased wt. shifting to R side. Pt. also sits with R lateral lean in attempts to off load L LE. PALPATION: Pt. had tenderness at anterior hip and down thigh. Pt. has pain a glute medius as well. NEURO: Pt. has normal DTR of BLEs. Normal sensation noted. ROM: PROM: L hip: flexion 60deg increase NW, abd 20deg increase NW, ER 35deg increase NW, IR neutral increase NW, extension neutral increase NW. AROM: Flexion 40ded, ER in hooklying 30deg increase NW,. MMT: LLE: ankle 5/5 throughout; knee: ext: 4/5 increase NE, flexion 4/5 increase NE: hip: flexion 3- /5 high pain, abd 3-/5 high pain. ext/ER/IR not tested due to pain. GAIT: Pt. ambulates with FWW with very antalgic pattern during L stance phase. Limited ROM noted. Pt. unable to ambulate without AD. - Balance/Special Test Scores Lower Extremity Functional Score: 18 - Goals Goal 1:: LTG: Pt. to be I with HEP for ROM and gentle strengthening. Goal Time Frame: 2-4 Weeks Goal 2:: STG: Pt. to have decreased pain at rest to 0-3/10 pain in L hip allowing for increased quality of life. Goal Time Frame: 2 Weeks Goal 3:: LTG: pt. to be able to ambulate with FWW with normal gait pattern with 0-3/10 pain in L hip allowing for increased ease with functional ADLs. Goal Time Frame: 4-6 Weeks Goal 4:: LTG: Pt. to have increased strength of LLE to at least 4/5 throughout allowing for increased ability to complete stairs and functional mobility in home. Goal Time Frame: 4-6 Weeks Goal 5:: STG: Pt. to sleep through out the night with 0-2/10 pain in L hip. Goal Time Frame: 2 Weeks - Rehabilitation Potential Physical Therapy Diagnosis: Pt. has signs and symptoms consistent of Idiopathic aseptic necrosis of L femur. Pt. has marked hypomobility, weakness, difficulty walking, and increased pain. Pt. would benefit from PT to address the above limitations and decreased pain. Rehabilitation Potential: Fair - Anticipated Interventions Patient/Client Instruction: Educate patient on: Condition, Plan of Care, Risk Factors, Benefits of Fitness Program For the Purpose of:: To improve decision making, To facilitate caregiver knowledge, To improve self management, To prevent re-injury, To improve ability to perform tasks related to life management Therapeutic Exercise to Include: Strength training, Power training, Balance training, Body mechanics, Postural training, Flexibilty training, Gait and locomotor training, In an aquatic setting, Passive ROM, Active ROM, Dynamic Lumbar Stabilization For the Purpose of:: To decrease pain, To increase ROM, To improve nutrient delivery to tissue, To increase oxygenation perfusion, To improve muscle performance and motor function, To improve ability to perform ADL's, To improve gait and locomotor functions, To improve health of tissue, To decrease soft tissue restriction, To increase flexibility/ROM, To improve endurance Thank you for the opportunity to evaluate your patient. For Medicare and Medicare HMO plans, please review the plan of care and approve it. It will need to be FAXED BACK to us at [phone] for Medicare purposes. For Medicare only, by signing this I certify the plan of care. Please let me know if there are questions or concerns regarding this plan of care. Physician Signature: Date:
== END 2021-03-24 19:00 | disposition home or self-care (01) ==
LOC: PT 11:00
PROVIDERS: PCP Family Medicine; Referring Provider Specialist; Visit Provider Specialist
DX: M87.052 Idiopathic aseptic necrosis of left femur (principal)
CPT/HCPCS: 97110; 97161

== ENCOUNTER 2021-03-25 10:58 | Outpatient (RCR) | payer MEDICARE, OTHER, SELFPAY | END 2021-04-13 23:59 | LOC: DC 10:58 | PROVIDERS: PCP Family Medicine; Visit Provider Specialist | DX: E11.9 Type 2 diabetes mellitus without complications; E66.8 Other obesity; Z68.42 Body mass index [BMI] 45.0-49.9, adult | CPT/HCPCS: 97803 ==

== ENCOUNTER 2021-03-25 12:07 | Outpatient (CLI) | payer MEDICARE, OTHER, SELFPAY ==
[2021-03-25 12:53] LABS: BNP,B-Type NATRIURETIC PEPTIDE 36.7 pg/mL (0-100)
[2021-03-25 13:05] LABS: Anion Gap 8 (5-15); BUN 31 mg/dL (7-18); BUN/Creat Ratio 17.5 RATIO (10-20); Calcium,Total 9.5 mg/dL (8.5-10.1); Chloride 106 mmol/L (98-107); Creatinine, Serum 1.77 mg/dL (0.55-1.02); EST Glomerular Filtration Rate 30 mL/min (>60); Est Glom Filt Rate - Afr Amer 37 mL/min (>60); Glucose 97 mg/dL (74-106); Potassium 4.2 mmol/L (3.5-5.1); Sodium Level 139 mmol/L (136-145)
== END 2021-03-25 23:59 | disposition home or self-care (01) ==
PROVIDERS: PCP Family Medicine; Referring Provider Nurse Practitioner Family; Visit Provider Nurse Practitioner Family
DX: I48.0 Paroxysmal atrial fibrillation (principal); Z68.42 Body mass index [BMI] 45.0-49.9, adult; E11.9 Type 2 diabetes mellitus without complications; I10 Essential (primary) hypertension; E78.5 Hyperlipidemia, unspecified; Z01.810 Encounter for preprocedural cardiovascular examination; E66.8 Other obesity; R06.02 Shortness of breath
CPT/HCPCS: 36415; 80048; 83880; 97803

== ENCOUNTER 2021-04-09 11:50 | Outpatient (CLI) | payer MEDICARE, OTHER, SELFPAY ==
--- NOTE | 2021-04-09 11:53 | ECHOCS_ITS ---
Reason For Study: preoperative exam (LT THR) Procedure This was a 2D Doppler, Color Flow transthoracic echocardiogram. The study was technically difficult. Exam performed with PT in supine position due to left hip pain. Contrast injection was performed. Left Ventricle Normal LV size. Left ventricular systolic function is normal. The estimated ejection fraction is 65 %. Diastolic function is indeterminate. No regional wall motion abnormalities noted. Right Ventricle Normal RV size. Normal systolic function. Atria Normal left atrium. Normal right atrium. No doppler evidence for ASD. Mitral Valve There is mild mitral annular calcification. Extension of the mitral annular calcification onto the base of the posterior mitral valve leaflet. Tricuspid Valve Normal tricuspid valve. Trivial tricuspid valve insufficiency. Unable to estimate RV systolic pressure/pulmonary artery pressure due to technically difficult study. Aortic Valve The aortic valve is not well visualized. Pulmonic Valve The pulmonic valve is not well visualized. Great Vessels Normal sized aortic root. Pericardium/Pleural No pericardial effusion. Epicardial fat. Medication 22 gauge I.V. with prn adaptor inserted into right arm. Diluted definity 2.0ml given slow IV push to enhance endocardial definition. MMode/2D Measurements & Calculations LVIDd: 5.3 cm IVSd: 0.86 cm Ao root diam: 3.1 cm LVIDs: 2.9 cm LVPWd: 1.1 cm RVDd: 3.3 cm FS: 44.3 % LAV(MOD-bp): 49.4 ml LVAd ap4: 30.7 cm2 LVAd ap2: 29.2 cm2 LAV(MOD-bp) Indexed: 24.6 ml/m2 LVLd ap4: 8.0 cm LVLd ap2: 8.0 cm LAV(MOD-sp2): 47.3 ml EDV(MOD-sp4): 96.7 ml EDV(MOD-sp2): 87.9 ml LAV(MOD-sp4): 47.1 ml EDV(sp4-el): 100.3 ml EDV(sp2-el): 90.8 ml LVAs ap4: 13.1 cm2 LVAs ap2: 16.3 cm2 LVLs ap4: 6.8 cm LVLs ap2: 7.3 cm ESV(MOD-sp4): 21.5 ml ESV(MOD-sp2): 29.9 ml ESV(sp4-el): 21.5 ml ESV(sp2-el): 30.6 ml EF(MOD-sp4): 77.8 % EF(MOD-sp2): 66.0 % EF(sp4-el): 78.6 % SV(MOD-sp4): 75.2 ml SV(MOD-sp2): 58.0 ml SV(sp4-el): 78.8 ml LA A4 area: 17.6 cm2 Time Measurements MV dec time: 0.23 sec Doppler Measurements & Calculations MV E max lei: 114.7 cm/sec Lat Peak E' Lei: 8.7 cm/sec Med Peak E' Lei: 12.4 cm/sec MV A max lei: 97.3 cm/sec E/E' lat: 13.2 E/E' med: 9.3 MV E/A: 1.2 Ao V2 max: 182.0 cm/sec LV V1 max: 128.7 cm/sec PA V2 max: 106.3 cm/sec Ao max P.2 mmHg LV V1 max P.6 mmHg ECHO/Echo Complete W/ Contrast Interpretation Summary The study was technically difficult. Contrast injection was performed. Left ventricular systolic function is normal. The estimated ejection fraction is 65 %. There is mild mitral annular calcification. Extension of the mitral annular calcification onto the base of the posterior mi tral valve leaflet. Trivial tricuspid valve insufficiency. Unable to estimate RV systolic pressure/pulmonary artery pressure due to techni jeff difficult study. Diastolic function is indeterminate. Ordering Physician: Juan Liu Referring Physician: Terry Donnelly Performed By: Sandy Hansen, RAGHAVENDRA, RVT
== END 2021-04-09 23:59 | disposition home or self-care (01) ==
LOC: CVS 11:52
PROVIDERS: PCP Family Medicine; Referring Provider Internal Medicine Cardiovascular Disease; Visit Provider Internal Medicine Cardiovascular Disease
DX: Z01.810 Encounter for preprocedural cardiovascular examination (principal); J47.9 Bronchiectasis, uncomplicated; E27.2 Addisonian crisis; E11.9 Type 2 diabetes mellitus without complications; Z01.818 Encounter for other preprocedural examination; E03.9 Hypothyroidism, unspecified
CPT/HCPCS: 36415; 80048; 80061; 80076; 82533; 83036; 83735; 84439; 84443; 85025; 85610; 85730; 87077; 87081; 93005; 93306; Q9957; A4216; C8929

== ENCOUNTER 2021-04-14 09:59 | Outpatient (RCR) | payer MEDICARE, OTHER, SELFPAY | END 2021-05-14 23:59 | LOC: DC 09:59 | PROVIDERS: PCP Family Medicine; Referring Provider Specialist; Visit Provider Specialist | DX: E66.8 Other obesity (principal); Z68.42 Body mass index [BMI] 45.0-49.9, adult; E11.9 Type 2 diabetes mellitus without complications | CPT/HCPCS: 97803 ==

== ENCOUNTER 2021-04-30 13:01 | Outpatient (CLI) | payer MEDICARE, OTHER, SELFPAY ==
--- NOTE | 2021-04-09 11:50 | EKG12_ITS ---
Test Reason : PRE OP Blood Pressure : / mmHG Vent. Rate : 069 BPM Atrial Rate : 069 BPM P-R Int : 160 ms QRS Dur : 076 ms QT Int : 382 ms P-R-T Axes : 080 -36 038 degrees QTc Int : 409 ms Normal sinus rhythm Left axis deviation Abnormal ECG Confirmed by LAURITA CARMONA, HARDIK ([id number]), features editor MAXWELL MILLS ([id number]) on 04/13/2021 11:41:59 AM Referred By: KEVIN Confirmed By:HARDIK SHAY MD
[2021-04-09 12:52] LABS: Absolute Lymphocyte Count 1.37 X10^3/uL (0.83-4.51); Absolute Neutrophil Count 5.4 X10^3/uL (2.0-7.7); Basophil# 0.03 X10^3/uL; Basophil% 0.4 % (0-1); Eosinophil# 0.42 X10^3/uL; Eosinophils% 5.2 % (0-5); Hematocrit 36.4 % (37-47); Hemoglobin 11.2 g/dL (12.0-15.0); Lymphocyte # 1.37 X10^3/ul (0.83-4.51); Lymphocyte % 17.1 % (19-41); Mean Corp Hgb Conc 30.8 g/dL (32-36); Mean Corpuscular Hgb 29.5 pg (27.0-32.0); Mean Corpuscular Volume 95.8 fL (81-99); Mean Platelet Vol. 10.4 fl (6.2-12.0); Monocyte# 0.75 X10^3/uL; Monocyte% 9.4 % (0-10); NRBC Flagged by Analyzer 0 % (0-5); Neutrophil % 67.3 % (47-70); Platelet Count 312 K/mm3 (150-450); RBC Distribution Width CV 14.4 % (11.6-14.6); RBC Distribution Width SD 50.4 fl (35.1-43.9)
[2021-04-09 13:04] LABS: International Normalized Ratio 1.5; Prothrombin Time (Protime)PT. 17.1 SECONDS (11.7-14.9)
[2021-04-09 13:05] LABS: Partial Thromboplast Time 27.5 Seconds (24.1-36.2)
[2021-04-09 13:13] LABS: Hemoglobin A1c 6.2 % (3.8-5.6)
[2021-04-09 13:28] LABS: Anion Gap 5 (5-15); BUN 39 mg/dL (7-18); BUN/Creat Ratio 22.4 RATIO (10-20); Calcium,Total 9.5 mg/dL (8.5-10.1); Chloride 105 mmol/L (98-107); Creatinine, Serum 1.74 mg/dL (0.55-1.02); EST Glomerular Filtration Rate 31 mL/min (>60); Est Glom Filt Rate - Afr Amer 38 mL/min (>60); Glucose 114 mg/dL (74-106); Potassium 4.1 mmol/L (3.5-5.1); Sodium Level 138 mmol/L (136-145)
[2021-04-09 13:35] LABS: Cholesterol 136 mg/dL (200); High Density Lipoprotein 55 mg/dL; T4 Free Direct 1.25 ng/dL (0.76-1.46); Triglycerides 128 mg/dL; Very Low Density Lipoprotein 26 mg/dL (5-40)
[2021-04-09 13:37] LABS: AST(SGOT) 10 U/L (15-37); Alanine Aminotransfer ALT/SGPT 17 U/L (13-56); Albumin, Serum 3.1 g/dL (3.2-5.0); Alkaline Phosphatase 127 U/L (45-117); Globulin 4.6 g/dL (2.2-4.2); Protein, Total 7.7 g/dL (6.4-8.2); Thyroid Stim Hormone (TSH) 3.67 uIU/mL (0.358-3.74)
== END 2021-04-30 23:59 | disposition home or self-care (01) ==
LOC: SDC 13:01
PROVIDERS: Anesthesiology; PCP Family Medicine; Visit Provider Specialist
DX: Z01.818 Encounter for other preprocedural examination (principal); J47.9 Bronchiectasis, uncomplicated; E27.2 Addisonian crisis; E11.9 Type 2 diabetes mellitus without complications; E03.9 Hypothyroidism, unspecified
CPT/HCPCS: 36415; 80048; 80061; 80076; 82533; 83036; 83735; 84439; 84443; 85025; 85610; 85730; 87077; 87081; 93005

== ENCOUNTER 2021-05-02 08:30 | Outpatient (CLI) | payer MEDICARE, OTHER, SELFPAY ==
--- NOTE | 2021-05-02 08:37 | CT_ITS ---
STUDY: CT CHEST WITHOUT CONTRAST REASON FOR EXAM: Female, 66 years old. Lung Nodule RADIATION DOSAGE (If Supplied By Facility): CTDIvol = ( 19.24 ) mGy, DLP = ( 634.53 ) mGycm TECHNIQUE: Transaxial imaging was performed without the administration of intravenous contrast material. Individualized dose optimization techniques were used for this CT. COMPARISON: Prior examinations dating back to 12/09/2019. FINDINGS: 6 mm left upper lobe nodule stable since previous examination. Right upper lobe nodule measuring 4 mm on image 32 series 4 unchanged. Spiculated 2 cm right upper lobe nodule unchanged since prior examinations. Similar lesion was described in the report of previous exam of 2018 however the images are not available for comparison. 5 mm right lower lobe nodule again unchanged. Mild stranding in the lower lungs likely due to scarring. No new focal consolidation is seen. There is no demonstrated pleural abnormality. Normal heart and pericardium. There are calcifications of the coronary arteries. Normal mediastinum. Normal hilar regions. Normal unenhanced pulmonary arteries. There is atherosclerotic calcification of the aortic arch with tortuosity and elongation of the aortic arch and descending thoracic aorta. There are multi-level degenerative changes of the thoracic spine. The visualized portions of the upper abdomen demonstrate no acute process. CT/Chest without Contrast IMPRESSION: 1. Multiple pulmonary nodules as described above, the largest is in the right upper lobe unchanged since the prior examination. Further follow-up exam in one year is recommended. 2. Mild stranding/scarring in the lower lobes. No new infiltrate is seen. 3. Coronary calcifications. Electronically Signed: Juan Lawson MD at 11:47 EDT ,
== END 2021-05-02 23:59 | disposition home or self-care (01) ==
PROVIDERS: PCP Family Medicine; Referring Provider Internal Medicine Critical Care Medicine; Visit Provider Internal Medicine Critical Care Medicine
DX: R91.1 Solitary pulmonary nodule (principal)
CPT/HCPCS: 71250

== ENCOUNTER 2021-05-12 15:01 | Emergency (ER) | payer MEDICARE, OTHER, SELFPAY ==
[2021-05-12] VITALS (7 sets, daily range): BP systolic 121–134; BP diastolic 63–71; PULSE 76–94; RESP 15–18; TEMP 36.3–37.1; O2SAT 95–99; BMI 43.4
--- NOTE | 2021-05-12 15:57 | EKG12_ITS ---
Test Reason : Blood Pressure : / mmHG Vent. Rate : 074 BPM Atrial Rate : 074 BPM P-R Int : 164 ms QRS Dur : 074 ms QT Int : 392 ms P-R-T Axes : 037 -23 026 degrees QTc Int : 435 ms Normal sinus rhythm Normal ECG Confirmed by SHAHRZAD RIVAS MD ([id number]), acquisitions editor MAXWELL MILLS ([id number]) on 05/13/2021 1:43:44 PM Referred By: DEANNA Confirmed By:SHAHRZAD RIVAS MD
--- NOTE | 2021-05-12 15:59 | EDS_ITS ---
HPI History of Present Illness Chief Complaint: General Illness Narrative Narrative: 66-year-old female presenting with shortness of breath. She states been ongoing for about a couple of weeks. She states that she developed a cough. She stated that she had a history of MRSA and she called her specialty sales consultant, Dr. Bazzi, who started her on doxycycline. This was later last week. She states that both Tuesday and Tuesday she spiked a fever of 101 ?F and this is after she had already taken ibuprofen, Vicodin, low-dose Tylenol. She states that she did have chills after this and felt shaky. She feels as if she has been wheezing and has been using her home nebulizers. She also spoke with her primary care physician who started her on Spiriva. Patient states she has a mild sharp chest pain on the right side of her chest. She states she is anticoagulated on Eliquis for history of DVT/PE and atrial fibrillation. She has not missed any doses. She states that her cough had been mild but became productive. She reports donya sputum. She does not report tobin hemoptysis. Patient denies any abdominal pain, nausea, vomiting. She denies urinary symptoms. No diarrhea constipation. [facility] Medical History Abnormal chest CT Acute bronchiolitis Acute respiratory failure ALEXYS (acute kidney injury) Allergic rhinitis Anemia Anxiety Aspiration into airway Asthma Atrial fibrillation with rapid ventricular response Atrial tachycardia Back pain Benign essential HTN Bronchiectasis Bronchiectasis with (acute) exacerbation Cellulitis of right lower extremity Chronic diastolic heart failure Chronic respiratory failure Coarse tremors COLD (chronic obstructive lung disease) Congestive heart failure (CHF) Diabetes Diabetes mellitus DVT (deep venous thrombosis) Former smoker Gastroesophageal reflux disease HCAP (healthcare-associated pneumonia) High cholesterol History of DVT (deep vein thrombosis) History of edema 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 History of renal disease Hx pulmonary embolism Hyperlipidemia Hypertension Hypothyroidism Hypoxemia Injury of back Insomnia Kidney disease Lung nodule Migraine headache Morbid obesity MRSA pneumonia Obesity GAGAN (obstructive sleep apnea) Pain of left hip Paroxysmal atrial fibrillation Paroxysmal atrial tachycardia Pneumonia Precordial chest pain Pulmonary embolism PVD (peripheral vascular disease) Right foot pain Severe sepsis Shortness of breath on exertion Steroid myopathy Tachycardia Thrush, oral Umbilical hernia Venous thromboembolism (VTE) Walker as ambulation aid Weakness Wears glasses Home Medications levothyroxine 25 mcg tablet 25 mcg PO DAILY@0600 01/04/20 [History Last Taken 09/18/20] albuterol sulfate 2.5 mg INHALATION Q4H PRN #180 vial 03/17/20 [Rx Last Taken 09/18/20] famotidine 40 mg tablet 40 mg PO QHS 04/02/20 [History Last Taken 09/18/20] cholecalciferol (vitamin D3) 50 mcg PO DAILY 09/19/20 [History Last Taken 09/18/20] furosemide [Lasix] 40 mg PO BID 09/19/20 [History Last Taken 09/18/20] ferrous sulfate 325 mg PO QODAY #0 tab 09/22/20 [Rx Last Taken 09/18/20] guaifenesin [Mucus Relief ER] 1,200 mg PO BID #14 tab 09/22/20 [Rx Last Taken Unknown] esomeprazole magnesium 40 mg capsule,delayed release 40 mg PO DAILY cap 10/13/20 [History Last Taken Unknown] potassium chloride 20 mEq tablet,extended release(part/cryst) 20 meq PO BID tab 10/13/20 [History Last Taken Unknown] atorvastatin 10 mg tablet 10 mg PO QHS #90 tab 11/27/20 [Rx Last Taken Unknown] flecainide 50 mg tablet 50 mg PO BID #180 tab 02/19/21 [Rx Last Taken Unknown] fluticasone propionate 230 mcg-salmeterol 21 mcg/actuation HFA inhaler 2 puff INHALATION BID #3 device 02/19/21 [Rx Last Taken Unknown] lactobacillus combination no.8 3 billion cell capsule 1 cell PO DAILY 03/25/21 [History Last Taken Unknown] apixaban [Eliquis] 5 mg PO BID 04/01/21 [History Last Taken Unknown] diltiazem HCl [Cardizem CD] 180 mg PO DAILY 04/01/21 [History Last Taken Unknown] hydrocodone-acetaminophen [Preble] 1 tab PO Q6H PRN 04/01/21 [History Last Taken Unknown] montelukast [Singulair] 10 mg PO QHS 04/01/21 [History Last Taken Unknown] doxycycline hyclate 100 mg tablet 100 mg PO BID #20 tab 05/07/21 [Rx Last Taken Unknown] Allergy/AdvReac Type Severity Reaction Status Date / Time adhesive Allergy SKIN Verified 05/12/21 15:03 TEARS. PAPER TAPE OK azithromycin [From Zithromax] Allergy Rash Verified 05/12/21 15:03 cefuroxime sodium Allergy Rash Verified 05/12/21 15:03 [From Zinacef] clindamycin Allergy Hives Verified 05/12/21 15:03 nitrofurantoin Allergy Rash Verified 05/12/21 15:03 macrocrystalline [From Macrodantin] Sulfa (Sulfonamide Allergy Rash Verified 05/12/21 15:03 Antibiotics) atenolol AdvReac Severe Peripheal Verified 05/12/21 15:03 edema & cough metoprolol [From Toprol XL] AdvReac Severe Peripheral Verified 05/12/21 15:03 edema & cough duloxetine [From Cymbalta] AdvReac Intermediate made me Verified 05/12/21 15:03 feel really sick Corticosteroids AdvReac Other Verified 05/12/21 15:03 (Glucocorticoids) oxycodone HCl [From Percocet] AdvReac Vomiting Verified 05/12/21 15:03 Family History Mother Hypertension Diabetes Heart disease Pulmonary embolism Father Perforated ulcer Respiratory failure Sister Asthma Hypertension Surgical History H/O section H/O foot surgery H/O hernia repair H/O shoulder surgery H/O: hysterectomy History of appendectomy History of cardioversion (~12/2016) History of left heart catheterization Hx of vein stripping S/P hysterectomy Social History Smoking Status: Former smoker quit date: 02/14/75 pack-years: 3 second hand exposure: No alcohol intake: never substance use type: does not use caffeine: No what type of physical activity do you participate in: none ROS ROS ED Constitutional Constitutional ED: Reports chills and fever(s) Eyes Eyes: Denies blurry vision or diplopia ENT ENT ED: Denies rhinorrhea or sore throat Cardiovascular Cardiovascular: Reports chest pain Respiratory/Chest Respiratory/Chest: Reports cough and dyspnea Gastrointestinal Gastrointestinal: Denies abdominal pain, constipation, diarrhea, nausea or vomiting Genitourinary Genitourinary ED: Denies dysuria or hematuria Musculoskeletal Musculoskeletal: Reports myalgias; Denies arthralgias or neck pain Integumentary Denies rash Neurologic Neurologic: Denies headache(s) or paresthesias EXAM Physical Exam Const Vital Signs: 05/12/21 15:02 05/12/21 15:50 05/12/21 15:57 Temperature 97.3 F L Temperature Source Temporal Pulse Rate 87 94 Respiratory Rate 16 15 Respiratory Pattern Blood Pressure 134/70 H Blood Pressure Mean 91 Pulse Ox 99 Oxygen Delivery Method Room Air Room Air 05/12/21 16:01 05/12/21 16:04 05/12/21 17:00 Temperature Temperature Source Pulse Rate 77 76 Respiratory Rate 18 16 Respiratory Pattern Normal Blood Pressure 130/64 H Blood Pressure Mean 86 Pulse Ox 98 97 Oxygen Delivery Method Room Air Room Air 05/12/21 19:00 05/12/21 19:20 05/12/21 21:09 Temperature 98.7 F Temperature Source Oral Pulse Rate 80 78 Respiratory Rate 17 18 Respiratory Pattern Blood Pressure 132/71 H 121/63 H Blood Pressure Mean 91 Pulse Ox 98 95 Oxygen Delivery Method Room Air Positive well nourished General Appearance ED: NAD; Negative for pallor HEENT Reports moist mucous membranes Negative for trauma Eyes PERRL and EOMs intact bilaterally Resp normal respiratory effort Auscultation: rhonchi left upper and right upper Cardio regular rate and regular rhythm GI normal to inspection, nondistended, normoactive bowel sounds Neuro oriented x3, CN's II-XII intact bilaterally and no sensory deficits noted Sensorium / Orientation: alert Motor Exam: strength 5/5 throughout Psych mental status grossly normal Skin no rashes or lesions noted General Skin Exam: Negative for jaundice or pallor MDM MDM MDM Narrative Medical decision making narrative: Patient presenting with history of fever and chills. She has had some right-sided chest discomfort. She is anticoagulated so I have little concern for PE. Her vital signs were normal but I did do a septic work-up. EKG on arrival is a sinus rhythm with ventricular rate of 74 bpm without sign of ischemic change. CBC shows a white blood cell count of 10.5. Hemoglobin stable at 11.1. PTT slightly prolonged at 39. PT slightly prolonged at 17.8. Nonspecific findings. Creatinine is 1.46 and this is actually better than the most recent baseline. Electrolytes are normal. LFTs unremarkable with exception of an alkaline phosphatase 122. High-sensitivity troponin is 4. Lactic acid returned at 1.2. Urinalysis negative for infection. Chest x-ray my interpretation shows no acute cardiopulmonary process and the radiologist agree. Covid testing is negative. Viral respiratory panel negative. I found no source of infection and the patient has normal vital signs. She is clearly not septic. From a chest pain standpoint her heart enzymes are normal and her EKG is normal. Chest x-ray also normal. I counseled her on the negative findings. I feel she safe to be discharged home. Patient was pancultured and she is aware she may be notified if anything comes back positive. She states she has been taking doxycycline outpatient as prescribed. She will continue this. Patient stable for discharge at this time. Impression: 1. Viral syndrome 2. Chest pain noncardiac 3. Chills Lab Data Attestation: I reviewed the patient's lab results. Labs: Laboratory Results - last 24 hr 05/12/21 05/12/21 05/12/21 15:45 15:45 15:45 WBC 10.5 RBC 3.57 L Hgb 11.1 L Hct 34.8 L MCV 97.5 MCH 31.1 MCHC 31.9 L RDW Std Deviation 50.6 H RDW Coeff of Lanre 14.1 Plt Count 409 MPV 10.5 Neut % (Auto) Not Reportable Absolute Neuts (auto) Not Reportable Nucleated RBC % 0 PT 17.8 H INR 1.5 APTT 39.0 H Sodium 142 Potassium 3.5 Chloride 110 H Carbon Dioxide 23.0 Anion Gap 9 BUN 40 H Creatinine 1.46 H Estim Creat Clear Calc 28.22 Est GFR (MDRD) Af Amer 46 L Est GFR (MDRD) Non-Af 38 L BUN/Creatinine Ratio 27.4 H Glucose 110 H Lactic Acid Calcium 9.7 Total Bilirubin 0.30 AST 11 L ALT 17 Alkaline Phosphatase 122 H Troponin I High Sens 4 Total Protein 8.0 Albumin 3.2 Globulin 4.8 H Albumin/Globulin Ratio 0.7 L Urine Color Urine Clarity Urine pH Ur Specific Cleghorn Urine Protein Urine Glucose (UA) Urine Ketones Urine Occult Blood Urine Nitrite Urine Bilirubin Urine Urobilinogen Ur Leukocyte Esterase Urine RBC Urine WBC Ur Squamous Epith Cells Urine Bacteria Urine Mucus 05/12/21 05/12/21 15:45 18:51 WBC RBC Hgb Hct MCV MCH MCHC RDW Std Deviation RDW Coeff of Lanre Plt Count MPV Neut % (Auto) Absolute Neuts (auto) Nucleated RBC % PT INR APTT Sodium Potassium Chloride Carbon Dioxide Anion Gap BUN Creatinine Estim Creat Clear Calc Est GFR (MDRD) Af Amer Est GFR (MDRD) Non-Af BUN/Creatinine Ratio Glucose Lactic Acid 1.2 Calcium Total Bilirubin AST ALT Alkaline Phosphatase Troponin I High Sens Total Protein Albumin Globulin Albumin/Globulin Ratio Urine Color Yellow Urine Clarity Clear Urine pH 5.0 Ur Specific C[place]horn 1.015 Urine Protein Negative Urine Glucose (UA) Normal Urine Ketones Negative Urine Occult Blood Negative Urine Nitrite Negative Urine Bilirubin Negative Urine Urobilinogen Normal Ur Leukocyte Esterase 100 H Urine RBC 0 SEEN Urine WBC 0-5 SEEN Ur Squamous Epith Cells 0 SEEN Urine Bacteria 0 SEEN Urine Mucus 0 SEEN Radiography Diagnostic Testing: Clinical Impression(s) from Imaging Studies Chest X-Ray 05/12/21 16:10 IMPRESSION: Nonacute portable x-ray examination of the chest. Electronically Signed: Scottie Pena MD ([place]) at 16:39 EDT Reading Location ID and State: [facility] / [place] , Service support , Discharge Plan Triage Chief Complaint: General Illness ED Provider: Carlos Arreola Dx/Rx/DC Orders Instructions: ED Viral Syndrome (Adult) Prescriptions: No Action famotidine 40 mg tablet 40 mg PO QHS RF: 0 esomeprazole magnesium [Nexium] 40 mg capsule,delayed release(DR/EC) 40 mg PO DAILY RF: 0 potassium chloride 20 mEq tablet,ER particles/crystals 20 meq PO BID RF: 0 lactobacillus combination no.8 3 billion cell capsule 1 cell PO DAILY RF: 0 levothyroxine 25 mcg tablet 25 mcg PO DAILY@0600 RF: 0 furosemide [Lasix] 40 mg tablet 40 mg PO BID RF: 0 cholecalciferol (vitamin D3) 50 mcg (2,000 unit) Capsule 50 mcg PO DAILY RF: 0 Mucus Relief ER 1,200 mg Tablet Extended Release 12hr 1,200 mg PO BID Qty: 14 RF: 0 ferrous sulfate 325 MG tablet 325 mg PO QODAY Qty: 0 RF: 0 hydrocodone-acetaminophen [Preble] 5-325 mg Tablet 1 tab PO Q6H PRN (Reason: Pain) RF: 0 diltiazem HCl [Cardizem CD] 180 mg capsule,extended release 24hr 180 mg PO DAILY RF: 0 montelukast [Singulair] 10 mg tablet 10 mg PO QHS RF: 0 Eliquis 5 mg tablet 5 mg PO BID RF: 0 albuterol sulfate 2.5 mg /3 mL (0.083 %) solution for nebulization 2.5 mg INHALATION Q4H PRN Qty: 180 RF: 6 atorvastatin [Lipitor] 10 mg tablet 10 mg PO QHS Qty: 90 RF: 3 Advair HFA 230-21 mcg/actuation HFA aerosol inhaler 2 puff INHALATION BID Qty: 3 RF: 11 flecainide 50 mg tablet 50 mg PO BID Qty: 180 RF: 3 doxycycline hyclate 100 mg tablet 100 mg PO BID Qty: 20 RF: 0 Primary Care Provider: Ervin Donnelly Referrals: Ervin Donnelly MD [Primary Care Provider] - Disposition Disposition: Home, Self Care Discharge Date/Time: 05/12/21 21:10
--- NOTE | 2021-05-12 16:10 | RAD_ITS ---
STUDY: X-RAY CHEST REASON FOR EXAM: Female, 66 years old. dyspnea TECHNIQUE: AP COMPARISON: 09/19/2020 FINDINGS: EKG leads project over the chest. Right shoulder replacement. Nodule in the right midlung is better seen on CT of 05/02/2021. There is no demonstrated pleural abnormality. Normal size heart. Normal mediastinum and tami. Normal visualized pulmonary arteries. There is atherosclerotic calcification of the aortic arch with tortuosity. Normal visualized thoracic spine. Normal visualized ribs, clavicles, and shoulders. There is no demonstrated abnormality of the visualized soft tissue structures of the upper abdomen. RAD/Chest 1 View (Portable) IMPRESSION: Nonacute portable x-ray examination of the chest. Electronically Signed: Scottie Pena MD (Brooks) at 16:39 EDT ,
[2021-05-12 16:31] LABS: International Normalized Ratio 1.5; Prothrombin Time (Protime)PT. 17.8 SECONDS (11.7-14.9)
[2021-05-12 16:40] LABS: ALB/GLOB Ratio 0.7 RATIO (0.9-2.4); AST(SGOT) 11 U/L (15-37); Alanine Aminotransfer ALT/SGPT 17 U/L (13-56); Albumin, Serum 3.2 g/dL (3.2-5.0); Alkaline Phosphatase 122 U/L (45-117); Anion Gap 9 (5-15); BUN 40 mg/dL (7-18); BUN/Creat Ratio 27.4 RATIO (10-20); Calcium,Total 9.7 mg/dL (8.5-10.1); Chloride 110 mmol/L (98-107); Creatinine, Serum 1.46 mg/dL (0.55-1.02); EST Glomerular Filtration Rate 38 mL/min (>60); Est Glom Filt Rate - Afr Amer 46 mL/min (>60); Estimated Creatinine Clearance 28.22 ml/min; Globulin 4.8 g/dL (2.2-4.2); Glucose 110 mg/dL (74-106); Potassium 3.5 mmol/L (3.5-5.1); Sodium Level 142 mmol/L (136-145); Troponin-I HS 4 pg/mL (3.0-54.0)
[2021-05-12 16:47] LABS: Hematocrit 34.8 % (37-47); Hemoglobin 11.1 g/dL (12.0-15.0); Lactic Acid 1.2 mmol/L (0.4-1.9); Mean Corp Hgb Conc 31.9 g/dL (32-36); Mean Corpuscular Hgb 31.1 pg (27.0-32.0); Mean Corpuscular Volume 97.5 fL (81-99); Mean Platelet Vol. 10.5 fl (6.2-12.0); NRBC Flagged by Analyzer 0 % (0-5); Platelet Count 409 K/mm3 (150-450); RBC Distribution Width CV 14.1 % (11.6-14.6); RBC Distribution Width SD 50.6 fl (35.1-43.9); Red Blood Count 3.57 M/mm3 (4.2-5.4); White Blood Count 10.5 K/mm3 (4.4-11.0)
[2021-05-12] MEDS: 0.9% Normal Saline 1,000 ML 999 ML IV (18:51)
[2021-05-12 19:02] LABS: Bacteria 0 SEEN /hpf (None Seen); Mucous, Urine 0 SEEN /hpf (<or=2+); Red Blood Cells-Urine 0 SEEN /hpf (0-5); Squamous Epithelial Cells - UA 0 SEEN /hpf (5-10)
[2021-05-12 19:15] LABS: Color, Urine Yellow (Yellow); Glucose, Dipstick Normal (Normal); Ketone-Dipstick Negative (Negative); Leukocyte Esterase-Dipstick 100 /ul (Negative); Nitrite-Dipstick Negative (Negative); Occult Blood-Urine Negative /ul (Negative); Protein-Dipstick Negative (Negative); Specific Gravity, Urine 1.015 (1.002-1.030); Urine Bilirubin Dipstick Negative (Negative); Urine Clarity Clear (Clear); Urine Urobilinogen Normal (Normal)
[2021-05-12 19:22] LABS: White Blood Cells 0-5 SEEN /hpf (0-5)
== END 2021-05-12 21:10 | disposition home or self-care (01) ==
PROVIDERS: Emergency Provider Student in an Organized Health Care Education/Training Program; PCP Family Medicine; Visit Provider Student in an Organized Health Care Education/Training Program
DX: B34.9 Viral infection, unspecified (principal); J44.9 Chronic obstructive pulmonary disease, unspecified; I11.0 Hypertensive heart disease with heart failure; I50.32 Chronic diastolic (congestive) heart failure; I48.91 Unspecified atrial fibrillation; E11.9 Type 2 diabetes mellitus without complications; Z87.891 Personal history of nicotine dependence; E78.00 Pure hypercholesterolemia, unspecified; R07.89 Other chest pain; E78.5 Hyperlipidemia, unspecified; R68.83 Chills (without fever); R05.9 Cough, unspecified; R06.02 Shortness of breath; Z86.14 Personal history of Methicillin resistant Staphylococcus aureus infection; Z79.01 Long term (current) use of anticoagulants; Z86.718 Personal history of other venous thrombosis and embolism; G47.33 Obstructive sleep apnea (adult) (pediatric); M79.10 Myalgia, unspecified site; R06.00 Dyspnea, unspecified; R07.9 Chest pain, unspecified
CPT/HCPCS: 71045; 80053; 81001; 83605; 84484; 85025; 85610; 85730; 87040; 87086; 87088; 87633; 87811; 93005; 96360; 99284; J7030; A4216

== ENCOUNTER 2021-05-22 09:42 | Outpatient (CLI) | payer MEDICARE, OTHER, SELFPAY | END 2021-05-22 23:59 | disposition home or self-care (01) | PROVIDERS: PCP Family Medicine; Referring Provider Nurse Practitioner Acute Care; Visit Provider Nurse Practitioner Acute Care | DX: J45.909 Unspecified asthma, uncomplicated (principal) | CPT/HCPCS: 87070; 87077; 87186; 87205 ==

== ENCOUNTER 2021-06-22 12:42 | Outpatient (RCR) | payer MEDICARE, OTHER, SELFPAY | END 2021-07-14 23:59 | LOC: DC 12:42 | PROVIDERS: PCP Family Medicine; Referring Provider Specialist; Visit Provider Specialist | DX: E11.9 Type 2 diabetes mellitus without complications (principal); E66.8 Other obesity; Z68.42 Body mass index [BMI] 45.0-49.9, adult | CPT/HCPCS: 97803 ==

== ENCOUNTER 2021-06-24 12:09 | Observation (INO) | payer MEDICARE, OTHER, SELFPAY ==
[2021-06-08 18:08] LABS: Absolute Lymphocyte Count 1.68 X10^3/uL (0.83-4.51); Absolute Neutrophil Count 5.3 X10^3/uL (2.0-7.7); Basophil# 0.04 X10^3/uL; Basophil% 0.5 % (0-1); Eosinophil# 0.23 X10^3/uL; Eosinophils% 2.9 % (0-5); Hematocrit 32.7 % (37-47); Hemoglobin 10.3 g/dL (12.0-15.0); Lymphocyte # 1.68 X10^3/ul (0.83-4.51); Lymphocyte % 21.1 % (19-41); Mean Corp Hgb Conc 31.5 g/dL (32-36); Mean Corpuscular Hgb 29.1 pg (27.0-32.0); Mean Corpuscular Volume 92.4 fL (81-99); Mean Platelet Vol. 10.5 fl (6.2-12.0); Monocyte# 0.73 X10^3/uL; Monocyte% 9.1 % (0-10); NRBC Flagged by Analyzer 0 % (0-5); Neutrophil # 5.28 X10^3/uL (2.7-7.7); Neutrophil % 66.1 % (47-70); Platelet Count 367 K/mm3 (150-450); RBC Distribution Width CV 14.4 % (11.6-14.6); RBC Distribution Width SD 48.5 fl (35.1-43.9); Red Blood Count 3.54 M/mm3 (4.2-5.4)
[2021-06-08 18:25] LABS: Albumin, Serum 3.2 g/dL (3.2-5.0); Anion Gap 8 (5-15); BUN 43 mg/dL (7-18); BUN/Creat Ratio 29.7 RATIO (10-20); Calcium,Total 9.2 mg/dL (8.5-10.1); Chloride 109 mmol/L (98-107); Creatinine, Serum 1.45 mg/dL (0.55-1.02); EST Glomerular Filtration Rate 38 mL/min (>60); Est Glom Filt Rate - Afr Amer 46 mL/min (>60); Estimated Creatinine Clearance 28.41 ml/min; Glucose 104 mg/dL (74-106); Sodium Level 139 mmol/L (136-145)
--- NOTE | 2021-06-09 13:11 | PCM.HP.BLA ---
History and Physical History and Physical [facility] Patient Name: Alejandro Stark : 1955 From: UCHE ALAS PA-C DATE OF SURGERY: 06/24/2021 SCHEDULED PROCEDURE: left total hip arthroplasty HISTORY OF PRESENT ILLNESS: Preoperative history and physical exam was performed on June 08, 2021. This is a 66-year-old female who has been having ongoing pain for nearly 1 year with her left hip. Patient was scheduled to undergo surgery on 2 separate occasions which had to be canceled. Recently she was found to have pseudomonas infection and are long. She has been followed by Dr. Pete Bazzi. She was treated with antibiotics. She feels much better at this time. She has finished her antibiotics. She continues to complain of left hip pain that can reach his high as a 10/10 with activities. On average a day 5/10. She continues to get left groin pain. Her pain as being constant. She uses a walker and a wheelchair. Pain is increased with going up and down stairs, walking, sitting, activities of daily living including getting dressed and trying to put on her socks and shoes. Pain does awaken her at nighttime. Patient has been through previous physical therapy and home exercises without relief. The physical therapy made her pain worse. Previous x-rays reveal Avascular necrosis of the femoral or head. Patient has been through weight loss program at [facility]. 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 We have obtained surgical clearance from her quality assurance monitor body Dr. Aragon and primary care physician Dr. Donnelly. Rubber Flap Tuber Machine Operator would like her to stop the Eliquis 4 days prior to surgery. During the time that she is off her Eliquis they will bridge her with Lovenox. She has the prescription for this bridging. She will resume the Eliquis postoperative day #1. We are also getting clearance from the mortgage operations manager Dr. Pete Bazzi. After failing conservative measures and discussing all treatment options with Dr. Nathaniel Reynoso, the patient does wish to proceed with a left total hip arthroplasty. She currently denies any chest pain, shortness of breath, fevers chills. REVIEW OF SYSTEMS: Review Of Systems: Constitutional: Reports NO vision problems, denies anorexia, anxiety, change in appetite, fever and weight change,hard of hearing. Cardiovasular: Reports irregular heartbeat, but denies chest pain, heart murmur and peripheral vascular disease. Respiratory: Reports asthma and wheezing, but denies cough, pneumonia, sleep apnea, shortness of breath and tuberculosis. Gastrointestinal: Reports heartburn, but denies constipation, diarrhea, nausea, bloody stools and vomiting, and difficulty swallowing. Genitourinary: Denies incontinence. Musculoskeletal: Reports leg swelling, but denies trouble walking and weakness and limp. Skin: Denies Raynaud's, history of shingles and tattoo. Neurological: Reports numbness/tingling but denies ambulatory dysfunction, dizziness and tremor. Psychiatric: Denies anxiety, depression, insomnia, mental illness and stress. Hematologic/Lymphatic: Reports anemia and past transfusion, but denies bleeding/bruising tendency. Reviewed and updated. PAST MEDICAL HISTORY: Advance Care Plan: Resuscitation, POA Effective Date: 10/15/2020 Resuscitation, LIVING WILL Effective Date: 10/15/2020 Past Medical History: Medical Problems: Arthritis, High Blood Pressure, Asthma, Pulmonary Embolism, History Of Blood Clots/ DVT, Acid Reflux, Hypercholesterolemia, Thyroid Disease, Congestive Heart Failure (CHF), A-Fib Chronic MRSA - IN LUNGS Diabetes, Kidney Disease/Renal Failure Steroid Myopathy - (03/27/2021) Peripheral Vascular Disease, Pneumonia, History of Sepsis Accidents: T12 Compression FX Fracture - RT SHOULDER FX Surgical Hx: Appendectomy - (1986) [facility] Hysterectomy - (1996) [facility] Bunion - (2004) Rt - [facility] - Repair Posterior Tibial Tendon - (2004) RT--[facility] - RT Shoulder Hemiarthroplasty - (12/01/2009) HARSHA @ [facility] Nodule BX - (05/2011) IN THYROID RT Leg Vein Stripping - (2005) RT Thumb Trigger Release - (12/30/2011) [email or web address] Hernia Repair - (2012) REPEATED JAN 2013 VENA CAVA FILTER INSERTED JAN 2013 Abd Surgery - (2012) COMPLICATIONS FROM HERNIA REPAIR [facility]ina Cataract Surgery RT Long Finger Trigger Release - (11/22/2013) KATHY @ [facility] Section - (1995) cardioversion - 2017 Anesthesia Complications: None Assistive Devices: Glasses, Walker Reviewed and updated. 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 Personal Habits: Tobacco Use: Patient is a former smoker.Cigarette Use: Former.Smokeless Tobacco: Never Used Smokeless Tobacco.E-Cigarette Use: Never used.Alcohol: Denies use.Drug Use: Denies Use.Enjoy Exercising: Exercises 1-3 x/month. Reviewed, no changes. VITALS: Ht: 61 Wt: 230lb Wt k.328 BMI: 43.5 BP: 144/90 Pulse: 73 Resp: 16 T: 97.8 T: 36.6C Pain Level: 5 O2SatR: 96 ALLERGIES: Macrodantin - rash Sulfa - hives Zithromax - hives zinacef - rash Clindamyacin - hives MEDICATIONS: Martin 5-325 mg 1 by mouth every 6 hour as needed pain, Tylenol Arthritis 650 mg 2 tabs PO qhs, Singulair 10 mg 1 by mouth every day, Potassium Chloride ER 20 Meq 1 by mouth BID, Synthroid 25 mcg 1 by mouth every day, Cardizem CD 180 mg one PO daily, Eliquis 5 mg 1 by mouth twice a day, Albuterol Inhaler 2 puffs as needed, Flonase Allergy Relief 50 mcg/Act twice a day, Lasix 40 mg 1 by mouth every day, Flecainide Acetate 50 mg 1po bid, Advair HFA 230-21 mcg/Act 2puffs bid, Pepcid 40 mg 1po qday, Vitamin D (Cholecalciferol) 25 mcg (1000 Ut) 1po qday, Nexium 40 mg 1 by mouth every day, Lipitor 10 mg 1po qday PRE-OP EXAM: General appearance:NORMAL Other: Eyes: Conjunctivae and lids: NORMAL Pupils: ERR Ears, Nose, Mouth, and Throat: NORMAL Other: Inspection of lips, teeth and gums: NORMAL Other: Neck: Examination of neck: no masses noted. Respiratory: Assessment of respiratory effort: NORMAL Other: Auscultation of lungs: clear to auscultation no wheezes, rhonchi or rales. Cardiovascular: Auscultation of heart: regular rate and rhythm, no murmurs, gallops or rubs. PHYSICAL EXAMINATION: Patient currently weightbearing as tolerated with the walker. She has increased pain with any motion of her left hip. Range of motion was deferred secondary to amount of pain. She was able to actively extend and flex her knee. Sensation intact to light touch to bilateral lower extremities. Neurovascularly intact. IMAGING STUDIES: Previous x-rays of the left hip reveals aggressive avascular necrosis and collapse of the weightbearing surface of the femoral head as well as progressive joint space narrowing consistent with severe stage IV osteoarthritis with avascular necrosis. IMPRESSION: 1. Severe left hip osteoarthritis with progressive avascular necrosis 2. Recent Pseudomonas infection: Finished all antibiotics and asymptomatic 3. Morbid obesity 4. Hypertension 5. Gastroesophageal reflux disease 6. Congestive heart failure 7. Atrial fibrillation: Currently on Eliquis 8. History of pneumonia 9. History of steroid myopathy 10. Peripheral vascular disease 11. History of sepsis 12. History of DVT and pulmonary embolism 13. Thyroid disease 14. Type 2 diabetes mellitus 15. Chronic kidney disease 16. Sleep apnea 17. Chronic MRSA involvement of the longus 18. Hypercholesterolemia PLAN: Dr. Nathaniel Reynoso did discuss and review with the patient all treatment options including surgical versus nonsurgical options. Patient does wish to proceed with the above-stated procedure. Potential risks, benefits, and complications of the procedure were discussed in detail including but not limited to , infection, nerve and blood vessel damage, persistent pain, numbness, tingling, paresthesias, blood clot, pulmonary embolism, and requirement for possible further surgery. The patient expressed full understanding and has no further questions for the doctor. Patient does agree to proceed with the above-stated procedure and has signed the surgery consent form. We discussed the current risks associated with COVID 19. This does include the risk of exposure while in the hospital. Patient was reassured local hospitals have low infection rates and are taking all necessary precautions to avoid exposure to patients. In addition, we discussed strategies that can be used to help limit exposure including those that limit the patient's time in the hospital. Also using strategies to limit the patient's need for continued inpatient services after being discharged from the hospital. Patient was notified that we will need to comply with any screening or testing the hospital wishes to perform or that surgery may be delayed for any positive results. This dictation was created using voice recognition software. Phonetic and/or grammatical errors may exist. ___ I have re-examined the patient. There are no clinical changes since date of exam. ___ See progress notes for changes. ___ Dictated on admission Date: Time: Signature:
[2021-06-22 14:42] LABS: Magnesium 2.3 mg/dL (1.6-2.6)
[2021-06-24] VITALS (13 sets, daily range): BP systolic 107–154; BP diastolic 62–94; PULSE 76–98; RESP 14–20; TEMP 36.3–37.6; O2SAT 93–100; BMI 44.5
--- NOTE | 2021-06-24 | HIP_PTH ---
PATIENT: LAURA SERRANO LOC: [facility] U#:[id number] AGE/SX: 66/F ROOM: AR319 RE06/24/[address]: Dr. Nathaniel Reynoso MD : 1955 BED: 1 DIS: 06/26/2021 SPEC #: [id number] RECD: 06/24/21 15:04 STATUS: DELVIN SWAIN #: [id number] GAYLA: 06/24/21 00:[address]: Nathaniel Reynoso DEPT: SURGICAL PATHOLOGY RECD BY: Shane Haile ENTERED: 06/25/21 08:49 SP TYPE: TOTAL HIP OTHR DR: MD Dr. Joo Marmolejo MD Dr. Eric Jopperi, DO Raymond Eshenaur, PA-C Tissues: Hip, NOS Procedures: Decalcification bone/plaque Surgery Specimen Level IV HEADER OPERATION: ERAS, left total hip anterior approach PRE-OP DIAGNOSIS: Avascular necrosis left hip TISSUE SUBMITTED: Left femoral head and bone MICROSCOPIC DIAGNOSIS Bone and tissue of left hip, total hip resection: Severe degenerative joint disease and changes of avascular necrosis. Mild synovial hyperplasia. AM:mel 07/01/2021 MICROSCOPIC DESCRIPTION Slides are reviewed. GROSS DESCRIPTION Received is one container labeled with the patient's name and designated left femoral head and bone. The specimen consists of a femoral head in two pieces measuring 4.5 x 4.5 x 4 cm. Portion of femoral neck measures 1 cm in length. The articular surface shows area of erosion, eburnation and osteophyte formation. The articular surface is focally avulsed from the underlying tissue. Soft tissue including bone reamings measure in aggregate 7 x 6 x 2 cm. Black Powder Glazing Operator sections are submitted in three cassettes as follows: 1 - soft tissue, 2 & 3 ? femoral head after decalcification. / SJ:mel 06/25/2021 TC:5 CPT: 16411, 89172
--- NOTE | 2021-06-24 07:25 | RAD_ITS ---
STUDY: X-RAY - PELVIS AND LEFT HIP REASON FOR EXAM: Female, 66 years old. Post Op -- AP both hips on single homar/lateral of op hip PACU TECHNIQUE: 2 views of the pelvis and hip. COMPARISON: Comparison is made with prior study 09/19/2020. FINDINGS: The patient is status post left total hip replacement. There is good alignment. RAD/Hip Min 2 Views (Portable) IMPRESSION: Status post left total hip replacement. There is good alignment. Electronically Signed: Lance Back MD at 15:01 EDT ,
--- NOTE | 2021-06-24 07:28 | PCM.OPRPT ---
Report of Operation Date of Procedure: 06/24/21 Pre-Operative Diagnosis: Left hip primary osteoarthritis Post-Operative Diagnosis: Left hip primary osteoarthritis Surgery/Procedure Performed:: Left minimally invasive direct anterior hip replacement Description of Surgical Findings:: Stable hip with equal leg lengths. Definitive evidence of avascular necrosis. Surgeon: Nathaniel Reynoso account support rep: Kenton Ardon Type of Anesthesia: General Special Medications: 2 g Ancef, 2 g TXA lavage and wound prior to closure, 10 mg Decadron, joint cocktail (5 mg Duramorph, 30 mL of 0.5% Ropivicaine, 1000 units of epinephrine, 30 mg of Toradol). Vancomycin due to history of MRSA Specimen's removed: Bony cuts Estimated Blood Loss (mL): 300 Fluids Replaced: 1900 mL crystalloid Description of Procedure: Components used: 1. Accolade 2 [place] femoral stem size 4 132? 2. Tony trident 2 acetabular shell size 48 mm 3. Tony X3 MDM metal liner D 4. [place] cobalt-chromium 22.2mm, 0mm femoral head 5. Tony X3 MDM insert 38 D Brief history operative indications: 66 yo F who failed conservative measures for their hip avascular necrosis. X-rays were consistent with osteoarthritis including joint space narrowing, osteophyte formation and subchondral cysts and avascular necrosis with femoral head collapse. Total hip replacement was discussed with the patient with risks and benefits including but not limited to blood loss, DVTs, PEs, neurovascular damage, dislocation, general risks of anesthesia including loss of life. Patient demonstrated an understanding medical clearance is obtained the patient was consented for surgery. Patient was optimized to the best possible optimization prior to surgery. She did have malnourishment noted. We did postpone surgery in order to help correct malnourishment however we did not want to prolong any further postponement due to patient's severe pain and associated disability from the femoral head collapse. Procedure: On the date of procedure the patient's L hip was marked in the preoperative area. Patient was then taken back to the operating room where anesthesia assumed control of the C-spine and airway and administered anesthetic. Patient was transferred to the operating table and placed in the supine position. The hips were placed at the break of the bed and a sacral bump was placed. L The lower extremity was then prepped out in a sterile fashion using chlorhexidine while the surgeon scrubbed. The PA was vital in the positioning of the patient. Upon reentering the room the left lower extremity was draped in the standard orthopedic fashion and the incision was marked. A timeout was called and everyone agreed upon the side, the site, the procedure be performed, antibody given, and patient's identity. At this time incision was made through skin, subcutaneous tissue, and fat down to fascia. The fascia was then incised and the TFL was retracted laterally. A retractor was placed on the lateral border of the femoral neck. Attention was directed to the inferior portion of the approach and all crossing vessels were identified and appropriately coagulated. A retractor was then placed on the medial portion of the femoral neck. The anterior capsule was then cleared of all soft tissue and then H shaped capsulotomy was made. The retractors were then placed inside the capsule. The femoral neck was identified and a cleanup cut was made. At this time a power corkscrew was used to remove the femoral head. Attention was then turned toward the acetabulum where the soft tissues were appropriately retracted and the acetabulum was sequentially reamed to 48 mm. A 48 mm cup was then selected and impacted into place. Acetabular liner was impacted into place and locking mechanism was verified. The position of the acetabular cup was then verified under live fluoroscopy. Attention was then turned to the femur. Soft tissue releases on the medial and lateral femoral neck were appropriately done, the leg was externally rotated and lateralized. A Muñoz retractor was placed medially and proximally to the greater trochanter this allowed appropriate visualization and exposure of the femoral canal. Rongeour was then used to remove excess lateral bone. A canal finder and entry broach were used to open the proximal canal. Once we verified we were down the femoral canal we subsequently broached up to a size 4 femur. The appropriate neck was placed in the previously selected head was trialed with a 0 mm neck. Traction was pulled and the hip was reduced with internal rotation. Once it was appropriately reduced and stability was checked. There was minimal shuck, equal leg lengths and appropriate stability with hyperextension and external rotation as well as with 90? flexion and internal rotation. Fluoroscopy was then also used to verify the position of the components and leg lengths using the contralateral side for comparison. The trial components were then dislocated the proximal femur was again exposed and the components were removed from the wound. The final components were verified and opened. The wound was copiously irrigated out with normal saline. The acetabulum was checked for any residual debris. The final components were placed and impacted. Traction and internal rotation were again used to reduce the hip. After adequate reduction the hip remained stable with appropriate leg lengths. The final components were once again checked with live fluoroscopy and were found to be satisfactory. The wound was then copiously irrigated with normal saline once more, and hemostasis was obtained. Closure was then done using #1 Vicryl runner to close the fascia. A 2-0 vicryl interuppted sutures were used to close the subcutaneous skin. A 3-0 Monocryl and Steri-Strips were used for final skin closure. A Silverlon dressing was placed. Patient was awakened by anesthesia and [facility] Patient was then transferred to the PACU for recovery. During the course of the procedure the physician real estate acquisition analyst (PE) played a vital role. Their intimate knowledge of my steps in the procedure aided in safe and expedient completion of the procedure. The PE played a vital rolls in positioning particularly in obtaining the appropriate positioning of the sacral bump. The PE was also vital in the retraction of soft tissues during the exposure and especially the femoral work as this is a vital part of the procedure to prevent complications and fractures. The PE was also vital and protecting soft tissues during times of bony cuts and reaming. He also played a vital role in closure with my direct supervision. The PE was also important during reduction and dislocation of the joint and trials intraoperatively. Postoperative plan: Patient will get 24 hours postop antibiotics. Patient will get in-house physical therapy and will be weight-bear as tolerated. Patient will follow up in office in 2 weeks for a wound check and x-rays. Patient will resume Eliquis tomorrow bridged preoperatively by her coal cager. She will take doxycycline 100 mg twice daily for 2 weeks due to her increased risk of infection related to malnutrition and a BMI greater than 40. Additionally patient has history of MRSA infection adding to her risk profile. Complications No intraoperative complications Admit VTE Documentation VTE Present on Admission: No VTE Mechan Device Prophylaxis: SCD's and Thigh High RUDDY Hose VTE Pharm Prophylaxis ordered?: Yes
[2021-06-24] MEDS: Lactated Ringers 1,000 ML 999 ML IV ×2 (10:32→15:54)
[2021-06-24] MEDS: Gabapentin 600 MG Tablet PO (10:32)
[2021-06-24] MEDS: Acetaminophen 500 MG Tablet 1000 MG PO ×2 (10:32→20:31)
[2021-06-24 11:26] LABS: Bedside Glucose 138 mg/dL (74-106)
[2021-06-24] MEDS: Ipratropium/Albuterol Sulfate 3 ML AMPUL.NEB INHALATION (11:39)
[2021-06-24] MEDS: Cefazolin 2 GM in 0.9% Normal Saline 100 ML IV (12:01)
--- NOTE | 2021-06-24 12:55 | RAD_ITS ---
STUDY: X-RAY - PELVIS AND LEFT HIP REASON FOR EXAM: Female, 66 years old. ERAS TOTAL HIP ANTERIOR APPROACH TECHNIQUE: 3 views of the pelvis and hip. COMPARISON: None. FINDINGS: Intraoperative imaging provided for left hip replacement. RAD/HIP, UNI W/ Pelvis 2-3 Views IMPRESSION: Intraoperative imaging provided for left total hip replacement. Electronically Signed: Lance Back MD at 13:55 EDT ,
[2021-06-24] MEDS: TXA in NS 100ml (Placed in Wound) OPERA.SITE (13:30)
[2021-06-24] MEDS: Joint Pain Solution (NO KETOROLAC) IV (13:38)
--- NOTE | 2021-06-24 15:06 | PCM.PN.HOSP ---
Documented by User: Linda Gaming NP, EXTENSION SERVICE AGENT-C 06/24/21 15:18 Subjective Subjective Patient seen and examined. Underwent left anterior hip replacement secondary to left hip primary osteoarthritis. Hospitalist services consulted for medical management. Objective Data Objective Data Vital Signs: Vital Signs Temp Pulse Resp BP Pulse Ox 97.4 F L 76 16 115/94 H 99 06/24/21 14:28 06/24/21 14:45 06/24/21 14:45 06/24/21 14:45 06/24/21 14:45 Oxygen Flow Rate (L/min) 4 Oxygen Delivery Method Nasal Cannula Weight: 235 lb 14.314 oz Body Mass Index (BMI) 44.5 Lab / Micro Data Result Diagrams: 06/08/21 14:46 06/08/21 14:46 Labs: Laboratory Results - last 24 hr 06/24/21 10:02: POC Glucose 138 H Micro: Microbiology 06/22/21 12:45 Interface Orders SARS-CoV-2 Antigen (Rapid) - Final 06/08/21 14:46 Swab (Method) Nasal Screen MRSA/MSSA - Final Radiography Diagnostic Testing: Radiology Impression Hip X-Ray 06/24/21 07:25 IMPRESSION: Status post left total hip replacement. There is good alignment. Electronically Signed: Lance Back MD at 15:01 EDT , Hip/Pelvis X-Ray 06/24/21 12:55 IMPRESSION: Intraoperative imaging provided for left total hip replacement. Electronically Signed: Lance Back MD at 13:55 EDT , Physical Exam Const alert, oriented x3 and no apparent distress Orientation / Consciousness: awake, oriented to person, oriented to place and oriented to time HEENT normocephalic and moist oral mucous membranes Eyes PERRL, EOMs intact bilaterally and conjunctivae normal Neck no lymphadenopathy Resp normal respiratory effort and clear to auscultation bilaterally Cardio regular rate, regular rhythm and no murmurs Peripheral Pulses: pulses 2+ throughout GI normal to inspection, nondistended, normoactive bowel sounds, non-tender and non-distended Extremity normal to inspection Skin no rashes or lesions noted Lesions: no lesions Rashes: no rashes Trauma: no lacerations or abrasions Neuro CN's II-XII intact bilaterally, no focal motor deficits, no sensory deficits noted and deep tendon reflexes 2+ bilaterally Psych mental status grossly normal and affect normal Assessment & Plan Assessment/Plan (1) S/P hip replacement: PLAN: 1. Left anterior hip replacement secondary to left hip primary osteoarthritis-management per Ortho. PT/OT. PRN pain regimen. 2. Chronic heart failure with preserved ejection fraction-echocardiogram 02/2019 demonstrates an EF of 65%, stage II diastolic dysfunction. Continue home Lasix regimen. 3. Suspected GAGAN-outpatient follow-up. 4. Chronic kidney disease stage IIIb-stable, trend BMP. 5. Chronic normocytic anemia with history of Hemoccult positive stool/gerd-continue PPI. 6. History of moderate persistent asthma and steroid induced myopathy-continue follow-up with pulmonary medicine. 7. Paroxysmal atrial fibrillation-continue Eliquis, Cardizem, flecainide. 8. History of DVT/PE-on Eliquis, recent transition to lovenox pre-surgery. 9. Hypothyroidism-continue Synthroid regimen. 10. Hypertension-stable, continue current regimen. 11. History of C. difficile 12. Morbid obesity-encouraged diet and lifestyle modifications. DVT prophylaxis- Eliquis This patient was seen by Linda Gaming, CHAD-C under the supervision of Dr. Mitchell. Time spent examining patient, reviewing data and subsequent management of care: 14 minutes Documented by User: Dr. Broderick Mitchell DO 06/24/21 18:21 Objective Data Lab / Micro Data Result Diagrams: 06/08/21 14:46 06/08/21 14:46 Charges/Coding Addendum Addendum: Patient was seen and examined today independently of Linda Gaming, she underwent a left minimally invasive direct anterior hip replacement today due to avascular necrosis. The hospitalist service was consulted for medical management. Patient's chronic medical problems include type 2 diabetes, hyperlipidemia, paroxysmal atrial fibrillation, chronic diastolic congestive heart failure, chronic obstructive pulmonary disease, morbid obesity, obstructive sleep apnea, and essential hypertension. On examination she appeared older than her stated age, she does not appear to be in any distress. Vital signs as documented. Skin warm and dry and without overt rashes. Neck without JVD, thyroid appears normal, trachea is midline, neck is supple. Lungs clear, normal air movement was noted. Heart exam notable for regular rhythm, normal sounds and absence of murmurs, rubs or gallops. Abdomen unremarkable and without evidence of organomegaly, masses, or abdominal aortic enlargement, bowel sounds are present in all 4 quadrants, no abdominal tenderness was noted. Extremities nonedematous, no cyanosis was noted, no clubbing was noted. Neuro: Cranial nerves II through XII are grossly intact, no focal motor deficits were noted, sensation to light touch and pinprick is intact, motor exam 5/5 throughout. Psych: Patient is alert and oriented x3, she does not appear anxious or depressed, she does not appear agitated. Impression: #1 essential hypertension-patient will remain on her present medications #2 paroxysmal atrial fibrillation-patient is on apixaban chronically, patient is on flecainide also. #3 hyperlipidemia-patient is currently on a statin #4 chronic obstructive pulmonary disease-patient is currently on aerosol treatments with budesonide and albuterol #5 GERD-patient is currently on Nexium and Pepcid at home, she would prefer not to be taken off the Pepcid. I will leave her on Protonix and Pepcid #6 type 2 diabetes-controlled with diet alone, patient is not currently on any medications #7 morbid obesity-complicates care, prognosis, and recovery #8 hypothyroidism-patient is currently on Synthroid #9 avascular necrosis of the left hip-status post left minimally invasive direct anterior hip replacement-patient will be seen by PT and OT, orthopedic surgery is participating in her care I have reviewed Linda Gaming's progress note including her medical assessment and plan of care and with the above additions endorse it. Total clinical time spent by myself addressing the patient's medical issues, reviewing the patient's data, and collaborating with the patient's care team: 30 minutes Visit Charges Inpatient E&M: 70543 Subs Hosp L3
[2021-06-24] MEDS: Ondansetron 4 MG/2 ML Vial IV (16:48)
[2021-06-24] MEDS: traMADol 50 MG Tablet PO (16:50)
[2021-06-24] MEDS: Furosemide 40 MG Tablet PO (16:52)
[2021-06-24] MEDS: Potassium Chloride Oral Tablet 20 MEQ PO (16:52)
[2021-06-24] MEDS: Lactated Ringers 1,000 ML 125 ML IV (16:56)
[2021-06-24] MEDS: Ensure Surgery 237 ML LIQUID PO (17:01)
--- NOTE | 2021-06-24 17:45 | CPS ---
patient will do when she gets back to her room, walking with PT, has prior knowledge
[2021-06-24] MEDS: Albuterol 2.5 MG/3 ML VIAL.NEB. INHALATION (18:17)
[2021-06-24] MEDS: Budesonide Respules 0.5 MG/2 ML AMPUL.NEB. INHALATION (18:17)
[2021-06-24] MEDS: Morphine 2 MG/ML Syringe IV ×2 (18:46→22:42)
[2021-06-24] MEDS: Cefazolin 1 GM/50 ML BAG IV (20:29)
[2021-06-24] MEDS: Atorvastatin Calcium 10 MG Tablet PO (20:31)
[2021-06-24] MEDS: guaiFENesin 1,200 MG Tablet 1200 MG PO (20:31)
[2021-06-24] MEDS: Montelukast 10 MG Tablet PO (20:31)
[2021-06-24] MEDS: Famotidine 20 MG Tablet 40 MG PO (20:31)
[2021-06-24] MEDS: Flecainide 100 MG Tablet 50 MG PO (20:32)
[2021-06-24] MEDS: Senna/Docusate Sodium 1 Tablet 2 TABLET PO (20:32)
[2021-06-24] MEDS: 0.9% Saline Lock 10 ML Syringe IV (22:42)
[2021-06-25] VITALS (10 sets, daily range): BP systolic 104–132; BP diastolic 49–70; PULSE 80–99; RESP 16–20; TEMP 37.3–39.4; O2SAT 94–97
[2021-06-25] MEDS: 0.9% Saline Lock 10 ML Syringe IV ×3 (03:01→10:41)
[2021-06-25] MEDS: Cefazolin 1 GM/50 ML BAG IV (03:01)
[2021-06-25] MEDS: Morphine 2 MG/ML Syringe IV ×3 (03:01→10:41)
[2021-06-25] MEDS: Levothyroxine 25 MCG TABLET PO (05:29)
[2021-06-25] MEDS: Acetaminophen 500 MG Tablet 1000 MG PO ×3 (05:29→22:58)
[2021-06-25 06:23] LABS: Hematocrit 30.7 % (37-47); Hemoglobin 9.3 g/dL (12.0-15.0); Mean Corp Hgb Conc 30.3 g/dL (32-36); Mean Corpuscular Hgb 28.9 pg (27.0-32.0); Mean Corpuscular Volume 95.3 fL (81-99); Mean Platelet Vol. 9.2 fl (6.2-12.0); Platelet Count 315 K/mm3 (150-450); RBC Distribution Width CV 13.7 % (11.6-14.6); RBC Distribution Width SD 47.9 fl (35.1-43.9); Red Blood Count 3.22 M/mm3 (4.2-5.4); White Blood Count 6.7 K/mm3 (4.4-11.0)
[2021-06-25 06:54] LABS: Anion Gap 8 (5-15); BUN 22 mg/dL (7-18); BUN/Creat Ratio 17.7 RATIO (10-20); Calcium,Total 8.7 mg/dL (8.5-10.1); Chloride 107 mmol/L (98-107); Creatinine, Serum 1.24 mg/dL (0.55-1.02); EST Glomerular Filtration Rate 46 mL/min (>60); Est Glom Filt Rate - Afr Amer 55 mL/min (>60); Estimated Creatinine Clearance 33.22 ml/min; Glucose 142 mg/dL (74-106); Potassium 3.8 mmol/L (3.5-5.1); Sodium Level 141 mmol/L (136-145)
[2021-06-25] MEDS: Budesonide Respules 0.5 MG/2 ML AMPUL.NEB. INHALATION ×2 (07:21→19:29)
[2021-06-25] MEDS: Albuterol 2.5 MG/3 ML VIAL.NEB. INHALATION ×3 (07:21→19:29)
--- NOTE | 2021-06-25 08:10 | PN.HOSP_ITS ---
Subjective Subjective Having cough. Objective Data Objective Data Vital Signs: Vital Signs Temp Pulse Resp BP Pulse Ox 37.5 C H 88 20 H 128/70 H 95 06/25/21 02:58 06/25/21 07:20 06/25/21 07:20 06/25/21 02:58 06/25/21 07:48 Oxygen Flow Rate (L/min) 2 Oxygen Delivery Method Room Air Weight: 107 kg Body Mass Index (BMI) 44.5 Intake & Output: Intake and Output for Last 24 Hours 06/23/21 06/24/21 06/25/21 23:59 23:59 23:59 Intake Total 2792 / 2792 1050 / 1050 Balance 2792 / 2792 1050 / 1050 Lab / Micro Data Result Diagrams: 06/25/21 06:05 06/25/21 06:05 Labs: Laboratory Results - last 24 hr 06/24/21 10:02: POC Glucose 138 H 06/25/21 06:05: WBC 6.7, RBC 3.22 L, Hgb 9.3 L, Hct 30.7 L, MCV 95.3, MCH 28.9, MCHC 30.3 L, RDW Std Deviation 47.9 H, RDW Coeff of Lanre 13.7, Plt Count 315, MPV 9.2 06/25/21 06:05: Sodium 141, Potassium 3.8, Chloride 107, Carbon Dioxide 26.0, Anion Gap 8, BUN 22 H, Creatinine 1.24 H, Estim Creat Clear Calc 33.22, Est GFR (MDRD) Af Amer 55 L, Est GFR (MDRD) Non-Af 46 L, BUN/Creatinine Ratio 17.7, Glucose 142 H, Calcium 8.7 Micro: Microbiology 06/22/21 12:45 Interface Orders SARS-CoV-2 Antigen (Rapid) - Final 06/08/21 14:46 Swab (Method) Nasal Screen MRSA/MSSA - Final Radiography Diagnostic Testing: Radiology Impression Hip X-Ray 06/24/21 07:25 IMPRESSION: Status post left total hip replacement. There is good alignment. Electronically Signed: Lance Bakc MD at 15:01 EDT , Hip/Pelvis X-Ray 06/24/21 12:55 IMPRESSION: Intraoperative imaging provided for left total hip replacement. Electronically Signed: Lance Back MD at 13:55 EDT , Physical Exam Resp normal respiratory effort Resp Narrative: coarse BS bilaterally. Cardio regular rate, regular rhythm and S1 normal heart sound GI normal to inspection, nondistended, normoactive bowel sounds, soft to palpation, non-tender and non-distended Neuro Sensorium / Orientation: awake and alert Assessment & Plan Assessment/Plan (1) S/P hip replacement: PLAN: 1. s/p Left anterior hip replacment: * mgmt per orthopaedics 2. Chronic HFpEF * compensated * continue furosemide * no BBs given allergy 3. paroxysmal Afib * on flecanide and dilt * anticoagulated with apixaban 4. h/o VTE * continue apixaban 5. COPD * not in exacerbation * on room air * C/W BDs, fluticasone/salmeterol 6. hypothyroidism * stable * continue with levothyroxine * no recent TSH in [employer], however, last FT4 from 04/09/2021 was 1.25 7. Cough * on room air * occurred post procedure * monitor for now. Charges/Coding Visit Charges Inpatient E&M: 88273 Subs Hosp L2
[2021-06-25] MEDS: Ensure Surgery 237 ML LIQUID PO ×3 (08:30→18:19)
[2021-06-25] MEDS: Potassium Chloride Oral Tablet 20 MEQ PO ×2 (08:30→18:16)
[2021-06-25] MEDS: Cholecalciferol (VIT D3) 25 MCG TABLET (1,000 UNITS) 50 MCG PO (08:30)
--- NOTE | 2021-06-25 09:52 | PCM.PN.ORT ---
Subjective Subjective The patient was sitting in bedside chair upon examination. Patient denies any chest pain, shortness of breath, dizziness, lightheadedness, nausea or vomiting, or calf pain. Pain is controlled on medications. No adverse overnight events. Patient does complain of pain in the thigh, groin and lateral thigh. Patient seems fatigued upon examination. She states she does feel tired. She states overnight there was improvement with getting up and moving. She has not had physical therapy today yet. 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 She is followed by local fisheries officer Dr. Pete Bazzi. Also followed by toy mechanic Dr Aragon. Patient is currently on Eliquis for her atrial fibrillation. Plan is to resume the Eliquis today. Patient is currently on room air with O2 saturation at 97%. She has been working with the spirometer. Objective Data Objective Data Vital Signs: Vital Signs Temp Pulse Resp BP Pulse Ox 99.1 F 97 16 104/63 97 06/25/21 08:13 06/25/21 08:13 06/25/21 08:13 06/25/21 08:13 06/25/21 08:13 Oxygen Flow Rate (L/min) 2 Oxygen Delivery Method Room Air Weight: 107 kg Body Mass Index (BMI) 44.5 Intake & Output: Intake and Output for Last 24 Hours 06/23/21 06/24/21 06/25/21 23:59 23:59 23:59 Intake Total 2792 / 2792 1050 / 1050 Balance 2792 / 2792 1050 / 1050 Lab / Micro Data Result Diagrams: 06/25/21 06:05 06/25/21 06:05 Labs: Laboratory Results - last 24 hr 06/24/21 10:02: POC Glucose 138 H 06/25/21 06:05: WBC 6.7, RBC 3.22 L, Hgb 9.3 L, Hct 30.7 L, MCV 95.3, MCH 28.9, MCHC 30.3 L, RDW Std Deviation 47.9 H, RDW Coeff of Lanre 13.7, Plt Count 315, MPV 9.2 06/25/21 06:05: Sodium 141, Potassium 3.8, Chloride 107, Carbon Dioxide 26.0, Anion Gap 8, BUN 22 H, Creatinine 1.24 H, Estim Creat Clear Calc 33.22, Est GFR (MDRD) Af Amer 55 L, Est GFR (MDRD) Non-Af 46 L, BUN/Creatinine Ratio 17.7, Glucose 142 H, Calcium 8.7 Micro: Microbiology 06/22/21 12:45 Interface Orders SARS-CoV-2 Antigen (Rapid) - Final 06/08/21 14:46 Swab (Method) Nasal Screen MRSA/MSSA - Final Radiography Diagnostic Testing: Radiology Impression Hip X-Ray 06/24/21 07:25 IMPRESSION: Status post left total hip replacement. There is good alignment. Electronically Signed: Lance Back MD at 15:01 EDT , Hip/Pelvis X-Ray 06/24/21 12:55 IMPRESSION: Intraoperative imaging provided for left total hip replacement. Electronically Signed: Lance Back MD at 13:55 EDT , Physical Exam Narrative Vital signs stable and afebrile. Patient is currently on room air at 97% O2 saturation. She did have 2 readings of low-grade fever overnight. Currently afebrile most recent vitals. Patient's left thigh is soft and supple. RUDDY hose and SCDs are in place bilaterally Patient is able to plantarflex and dorsiflex actively. Sensation is intact to light touch to saphenous, sural, superficial and deep peroneal, and tibial distribution. Dressing is clean dry and intact. Negative Homans bilaterally, negative signs and symptoms of DVT. Const alert, oriented x3 and no apparent distress Assessment & Plan Assessment/Plan (1) S/P total left hip arthroplasty: PLAN: 1. S/P left direct anterior total hip arthroplasty POD #1 2. Continue Pain Medications: Tylenol and tramadol 3. DVT Prophylaxis: Patient will resume her Eliquis in which prescribed by cardiology for atrial fibrillation. This will cover her for DVT prophylaxis postoperatively. 4. PT/OT: Weightbearing as tolerated with walker 5. H & H: 9.3/30.7, asymptomatic. Postoperative anemia secondary to acute blood loss from surgery without any intra operative complications. Patient has chronic normocytic anemia. Will repeat CBC and BMP tomorrow. 6. Continue postoperative medical management per medicine: Case was discussed with the hospitalist. Patient does have stable chronic kidney disease with elevated creatinine. Also is followed by local fisheries officer and toy mechanic in the hospital. She has chronic lung complications that we will continue to monitor postoperatively. Recommended patient to continue with the incentive spirometer. 7. Continue antibiotics postoperatively for 2 weeks due to increased risk of infection related to malnutrition and BMI greater than 40 as well as history of MRSA infection adding to her risk profile. She is currently on doxycycline for 2 weeks postoperatively. 8. Encouraged Incentive Spirometry 9. Disposition: Patient today appears fatigued on exam. She does have significant medical history that will affect postoperative recovery. I would like her to stay an additional night so she can be observed due to her significant history of lung complications. Would also like her to be evaluated from physical therapy standpoint as she is planning on being discharged home. She states she will have someone staying with her for the next 2 weeks starting this weekend. We will need to assess her from a physical therapy standpoint for discharge planning. We will also repeat CBC and BMP tomorrow on postoperative day #2. I have reviewed the [place] Automated Rx Reporting System (OARRS) report for this patient for refill pattern and other prescriber involvement as part of the appropriate surveillance for the provision of acute and chronic controlled medications. The report was requested and reviewed on the date of this entry and was considered in the prescribing process. This dictation was created using voice recognition software. Phonetic and/or grammatical errors may exist.
[2021-06-25] MEDS: Flecainide 100 MG Tablet 50 MG PO ×2 (10:42→22:57)
[2021-06-25] MEDS: Pantoprazole Sodium 40 MG Tablet PO (10:43)
[2021-06-25] MEDS: guaiFENesin 1,200 MG Tablet 1200 MG PO ×2 (10:43→22:57)
[2021-06-25] MEDS: Furosemide 40 MG Tablet PO ×2 (10:43→18:17)
[2021-06-25] MEDS: APIXABAN 5 MG TABLET PO ×2 (10:44→22:57)
[2021-06-25] MEDS: Senna/Docusate Sodium 1 Tablet 2 TABLET PO ×2 (10:44→22:58)
[2021-06-25] MEDS: dilTIAZem CD 180 MG Capsule PO (10:44)
--- NOTE | 2021-06-25 10:55 | CASEMGMT ---
RN NATALI YOUTH MINISTRY DIRECTOR CM to room to meet with patient for initial transition planning/care coordination assessment. MARIO HURST introduced self and role at [facility].? Pt voices understanding and consents to assessment at this time.? Pt sitting up in chair in room in no distress at this time.? Pt is A/O at this time and answers all questions appropriately.?? Care providers, pharmacy, and demographics verified/updated at this time. PCP: Dr Donnelly Specialists: Dr Melo Preferred Pharmacy: [facility] Retail Insurance: MCR, MMO Prescription Benefit:? Yes, [employer] Living Will/HPOA:? Has both LW and HPOA, who is her sister, Elosia Casarez LNOK: Sister, Eloisa Living Arrangements: Lives in one-story home w/1-2 steps to enter or ramp entrance. 25-yr-old special-needs daughter lives w/her. Caregiver comes to help care for pt's daughter and can help pt w/some meals. Pt states she has stock-piled food in preparation for this surgery. Pt's sister, Eloisa, will be coming on Tuesday and will be staying w/pt for 2 weeks. Prior to Tuesday, pt will not have someone in the home to assist her. Pt's ex- is also supportive and is taking care of their daughter while pt hospitalized and helps w/getting groceries. Transportation: Pt states drives self. Sister, Eloisa, just had shunt placed about a month ago and unable to assist pt w/driving. DME: ? States has the following DME:? vibrating vest, shower chair/sliding seat, cane, toilet side-rails, grab bars, walker (uses @ baseline), rollator, senior design engineer. Pt sleeps in a recliner. Pt states no need for further DME at this time.? HHC/SNF: Hx of TCU and [facility] HHC. Pt states does have appt set up for OP therapy @ [facility] 06/29, but wishes to do HHC for a couple of weeks first before doing OP therapy, as she does not have transportation to [facility]. Pt made aware of [facility] OP therapy and [facility] van transportation. Pt states it is difficult to get in/out of [facility] van and prefers to do HHC. ?Pt was provided with list of?HHC providers including quality and resource use data and consistent with the patient's preferred geographic region, medical needs, and insurance network. ?The pt's preferred provider is? [facility]. MARIO Quezada CM, made aware. Also made aware appt @ [facility] will need cancelled for 06/29. Pt wishes to return home w/HHC and states has no concerns with going home at time of discharge.? ? CM to follow for any further discharge planning/needs.? Pt voices no further concerns/needs at this time.? Advised pt to ask for CM if any further questions/concerns/needs arise.? Voices understanding. PLAN: ?Home w/HHC. 1st preference is [facility]. Tc WINSTON RN, CM
--- NOTE | 2021-06-25 11:00 | CASEMGMT ---
MARIO HURST NOTE: BERGMAN form explained re: Observation status for treatment of left anterior total hip.? Explained hospitalization will be paid per? her insurance policy for Outpatient billing?and condition will continue to be evaluated for Inpt necessity. Also let pt know that [facility] sends paper in the billing packet with their phone number if questions arise. Discussed Pharmacy section of BERGMAN form and self administered medication guideline.? Pt verbalizes understanding and does not have further questions. ?Form signed, copy made and placed in chart, and original given to pt. Tc WINSTON RN CM
--- NOTE | 2021-06-25 11:13 | CASEMGMT ---
Addendum entered by Pilar Singleton 06/25/21 11:56: Received tc from Alexandra at [facility], they are able to accept pt and will be in touch with her for SOC on Tuesday or Tuesday. Original Note: TC to [facility] to make referral for therapy for pt with dc tomorrow. Spoke with Alexandra intake. Will await returned call for acceptance. TC to [facility] therapy, spoke with Indu, cancelled appt for 06/29 and made aware pt will be dc'ing with [facility].
[2021-06-25] MEDS: Ferrous Sulfate 325 MG Tablet PO (12:45)
[2021-06-25] MEDS: Doxycycline 100 MG CAPSULE PO ×2 (15:38→22:57)
[2021-06-25] MEDS: traMADol 50 MG Tablet PO ×2 (15:38→22:55)
[2021-06-25] MEDS: Atorvastatin Calcium 10 MG Tablet PO (22:57)
[2021-06-25] MEDS: Montelukast 10 MG Tablet PO (22:58)
[2021-06-25] MEDS: Famotidine 20 MG Tablet 40 MG PO (22:58)
[2021-06-26 05:18] LABS: Hematocrit 28.3 % (37-47); Hemoglobin 8.4 g/dL (12.0-15.0); Mean Corp Hgb Conc 29.7 g/dL (32-36); Mean Corpuscular Hgb 28.6 pg (27.0-32.0); Mean Corpuscular Volume 96.3 fL (81-99); Mean Platelet Vol. 9.9 fl (6.2-12.0); Platelet Count 275 K/mm3 (150-450); RBC Distribution Width CV 14.1 % (11.6-14.6); RBC Distribution Width SD 49.3 fl (35.1-43.9); Red Blood Count 2.94 M/mm3 (4.2-5.4); White Blood Count 7.6 K/mm3 (4.4-11.0)
[2021-06-26 05:46] LABS: Anion Gap 7 (5-15); BUN 25 mg/dL (7-18); BUN/Creat Ratio 22.3 RATIO (10-20); Calcium,Total 8.6 mg/dL (8.5-10.1); Chloride 108 mmol/L (98-107); Creatinine, Serum 1.12 mg/dL (0.55-1.02); EST Glomerular Filtration Rate 52 mL/min (>60); Est Glom Filt Rate - Afr Amer 62 mL/min (>60); Estimated Creatinine Clearance 36.78 ml/min; Glucose 142 mg/dL (74-106); Potassium 3.4 mmol/L (3.5-5.1); Sodium Level 141 mmol/L (136-145)
[2021-06-26] MEDS: Levothyroxine 25 MCG TABLET PO (06:38)
[2021-06-26] MEDS: Acetaminophen 500 MG Tablet 1000 MG PO ×2 (06:39→14:31)
[2021-06-26 06:55] VITALS: PULSE 86; RESP 24; O2SAT 94
[2021-06-26] MEDS: Budesonide Respules 0.5 MG/2 ML AMPUL.NEB. INHALATION (06:55)
[2021-06-26] MEDS: Albuterol 2.5 MG/3 ML VIAL.NEB. INHALATION ×2 (06:55→13:03)
[2021-06-26] MEDS: traMADol 50 MG Tablet PO ×2 (07:15→14:24)
[2021-06-26] MEDS: Ensure Surgery 237 ML LIQUID PO ×2 (07:15→11:08)
[2021-06-26] MEDS: Potassium Chloride Oral Tablet 20 MEQ PO (07:19)
[2021-06-26] MEDS: Cholecalciferol (VIT D3) 25 MCG TABLET (1,000 UNITS) 50 MCG PO (07:19)
--- NOTE | 2021-06-26 07:32 | PN.HOSP_ITS ---
Subjective Subjective Fever (39.4) last night. Does not feel well. On room air. Objective Data Objective Data Vital Signs: Vital Signs Temp Pulse Resp BP Pulse Ox 37.3 C H 97 16 110/49 L 94 06/25/21 20:38 06/25/21 20:38 06/25/21 20:38 06/25/21 20:38 06/25/21 20:38 Oxygen Flow Rate (L/min) 2 Oxygen Delivery Method Room Air Weight: 107 kg Body Mass Index (BMI) 44.5 Intake & Output: Intake and Output for Last 24 Hours 06/24/21 06/25/21 06/26/21 23:59 23:59 23:59 Intake Total 2792 / 2792 1050 / 1050 Balance 2792 / 2792 1050 / 1050 Lab / Micro Data Result Diagrams: 06/26/21 04:42 06/26/21 04:42 Labs: Laboratory Results - last 24 hr 06/26/21 04:42: WBC 7.6, RBC 2.94 L, Hgb 8.4 L, Hct 28.3 L, MCV 96.3, MCH 28.6, MCHC 29.7 L, RDW Std Deviation 49.3 H, RDW Coeff of Lanre 14.1, Plt Count 275, MPV 9.9 06/26/21 04:42: Sodium 141, Potassium 3.4 L, Chloride 108 H, Carbon Dioxide 26.0, Anion Gap 7, BUN 25 H, Creatinine 1.12 H, Estim Creat Clear Calc 36.78, Est GFR (MDRD) Af Amer 62, Est GFR (MDRD) Non-Af 52 L, BUN/Creatinine Ratio 22.3 H, Glucose 142 H, Calcium 8.6 Micro: Microbiology 06/22/21 12:45 Interface Orders SARS-CoV-2 Antigen (Rapid) - Final 06/08/21 14:46 Swab (Method) Nasal Screen MRSA/MSSA - Final Physical Exam Const alert and no apparent distress Resp normal respiratory effort, no retractions, no use of accessory muscles and clear to auscultation bilaterally Cardio regular rate, regular rhythm, S1 normal heart sound and S2 normal heart sound GI normal to inspection, nondistended, normoactive bowel sounds, soft to palpation, non-tender and non-distended Extremity General Extremity: edema Assessment & Plan Assessment/Plan (1) S/P hip replacement: PLAN: 1. s/p Left anterior hip replacment: * mgmt per orthopaedics 2. Chronic HFpEF * compensated * continue furosemide * no BBs given allergy 3. paroxysmal Afib * on flecanide and dilt * anticoagulated with apixaban 4. h/o VTE * continue apixaban 5. COPD * not in exacerbation * on room air * C/W BDs, fluticasone/salmeterol 6. hypothyroidism * stable * continue with levothyroxine * no recent TSH in [facility], however, last FT4 from 04/09/2021 was 1.25 7. Cough * on room air * occurred post procedure * CXR showed chronic changes. 8. Fever * transient and resolved * CXR unremarkable Medically stable for discharge to TCU. Charges/Coding Visit Charges OBSV E&M: 00829 Subsequent observation care L2
--- NOTE | 2021-06-26 07:34 | RAD_ITS ---
STUDY: X-RAY CHEST REASON FOR EXAM: Female, 66 years old. Fever TECHNIQUE: Single AP portable view of the chest. COMPARISON: Comparison is made with prior study dated 05/12/2021. FINDINGS: Stable mild increased markings at the lung bases suggestive of scarring. Stable faint 1.1 cm nodule in the lateral aspect of the right mid lung. There is no demonstrated pleural abnormality. There is borderline cardiomegaly. Normal mediastinum and tami. Normal visualized pulmonary arteries. There is atherosclerotic calcification of the aortic arch with tortuosity. There are diffuse degenerative changes of the visualized thoracic spine. The patient is status post right shoulder replacement. There is no demonstrated abnormality of the visualized soft tissue structures of the upper abdomen. RAD/Chest 1 View (Portable) IMPRESSION: Stable mild increased markings at the lung bases suggestive of scarring. Stable 1.1 cm nodule in the peripheral lateral aspect of the right mid lung. Electronically Signed: Lance Back MD at 8:08 EDT ,
--- NOTE | 2021-06-26 07:46 | PCM.PN.ORT ---
Subjective Subjective Patient's left thigh pain is doing well. She continues to have discomfort in the thigh. Denies any chest pain, calf pain. She does have a cough and has had chronic cough. She has chronic lung disease. She did spike a fever overnight to 102.5 which seems to have resolved this morning. She reports continuous use of her incentive spirometry. Patient reports ambulation is going relatively well however getting up out of a chair remains difficult. She does not have a support system available to her at home until Tuesday at the earliest. She does report having nebulizer at home to help with pulmonary issues. 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 She is resumed her Eliquis. She remains on doxycycline as she is a high risk patient postoperatively. Objective Data Objective Data Vital Signs: Vital Signs Temp Pulse Resp BP Pulse Ox 99.2 F H 97 16 110/49 L 94 06/25/21 20:38 06/25/21 20:38 06/25/21 20:38 06/25/21 20:38 06/25/21 20:38 Oxygen Flow Rate (L/min) 2 Oxygen Delivery Method Room Air Weight: 235 lb 14.314 oz Body Mass Index (BMI) 44.5 Intake & Output: Intake and Output for Last 24 Hours 06/24/21 06/25/21 06/26/21 23:59 23:59 23:59 Intake Total 2792 / 2792 1050 / 1050 Balance 2792 / 2792 1050 / 1050 Lab / Micro Data Result Diagrams: 06/26/21 04:42 06/26/21 04:42 Labs: Laboratory Results - last 24 hr 06/26/21 04:42: WBC 7.6, RBC 2.94 L, Hgb 8.4 L, Hct 28.3 L, MCV 96.3, MCH 28.6, MCHC 29.7 L, RDW Std Deviation 49.3 H, RDW Coeff of Lanre 14.1, Plt Count 275, MPV 9.9 06/26/21 04:42: Sodium 141, Potassium 3.4 L, Chloride 108 H, Carbon Dioxide 26.0, Anion Gap 7, BUN 25 H, Creatinine 1.12 H, Estim Creat Clear Calc 36.78, Est GFR (MDRD) Af Amer 62, Est GFR (MDRD) Non-Af 52 L, BUN/Creatinine Ratio 22.3 H, Glucose 142 H, Calcium 8.6 Micro: Microbiology 06/22/21 12:45 Interface Orders SARS-CoV-2 Antigen (Rapid) - Final 06/08/21 14:46 Swab (Method) Nasal Screen MRSA/MSSA - Final Physical Exam Resp Resp Narrative: Patient coughs throughout the interaction raspy but nonproductive. Effort and Inspection: able to speak in complete sentences Extremity Extremity Narrative: Left lower extremity: Dressing is clean dry and intact Sensations intact to light touch saphenous, sural, superficial peroneal, deep peroneal, and tibial distributions Motors intact EHL, DF, PF calves are soft and supple Assessment & Plan Assessment/Plan (1) S/P total left hip arthroplasty: PLAN: PLAN: 1. S/P left direct anterior total hip arthroplasty POD #2 2. Continue Pain Medications: Tylenol and tramadol. Pain adequately controlled. Patient has reaction to other narcotic medications. 3. DVT Prophylaxis: Patient will resume her Eliquis in which prescribed by cardiology for atrial fibrillation. This will cover her for DVT prophylaxis postoperatively. 4. PT/OT: Weightbearing as tolerated with walker 5. Hb: 9.4, asymptomatic. Postoperative anemia secondary to acute blood loss from surgery without any intra operative complications. Patient has chronic normocytic anemia. Will repeat CBC and BMP tomorrow if she remains in house. At this time we will continue to monitor symptomatology and consider transfusions only on medical necessity. 6. Continue postoperative medical management per medicine: Case was discussed with the hospitalist. Patient does have stable chronic kidney disease with elevated creatinine. Also is followed by local chili pepper grinder and radiation therapy technician in the hospital. She has chronic lung complications that we will continue to monitor postoperatively. Recommended patient to continue with the incentive spirometer. Case was discussed with medicine this morning. 7. Continue antibiotics postoperatively for 2 weeks due to increased risk of infection related to malnutrition and BMI greater than 40 as well as history of MRSA infection adding to her risk profile. She is currently on doxycycline for 2 weeks postoperatively. Encourage probiotic while on antibiotics. 8. Fever, cough, history of COPD: Fever likely related to atelectasis at this time. She continues to have a cough. Chest x-ray being checked by medicine this morning. Appreciate medical input on this medically complex patient. Patient does have history of MRSA and Pseudomonas pneumonia. Currently on doxycycline for postoperative prophylaxis may require further intervention. Patient does report having nebulizer at home and we discussed the importance of continued incentive spirometry especially considering her medical history and pulmonary history. Patient demonstrated understanding in our interaction today. 9. Disposition: Patient today appears fatigued on exam. She does have significant medical history that will affect postoperative recovery. Additionally, patient has significant deconditioning and is having difficulty with mobility secondary to this. Patient would likely benefit greatly from inpatient rehabilitation or retirement facility related to her medical comorbidities and deconditioning likely require more prolonged early recovery. We discussed this at length today. Additionally patient does not have adequate support at home which may add to her risks of discharge to home. Discharge disposition will be explored today with medicine and social work services in order to determine appropriate destination and obtain appropriate insurance precertification. (2) Shortness of breath: PLAN: Encourage incentive spirometry. Chest x-ray ordered (3) COPD with acute exacerbation: PLAN: Encourage incentive spirometry. Chest x-ray ordered. Related to postoperative state (4) Cough: PLAN: Encourage incentive spirometry. Chest x-ray ordered. (5) Paroxysmal atrial fibrillation: PLAN: Managed by medicine, continued on Eliquis (6) Obesity: PLAN: Affecting patient's mobility. Patient significantly deconditioned. Fall risk were discussed the patient. (7) Hx pulmonary embolism: PLAN: Patient resumed on Eliquis postoperatively should cover for VTE prevention (8) Diabetes mellitus: PLAN: Managed by medicine, appreciate input.
--- NOTE | 2021-06-26 10:45 | CASEMGMT ---
Addendum entered by Adrianna Littlejohn 06/26/21 12:38: Social Work Pt ready for discharge at this time. Orders faxed to TCU. Nursing and pt updated. AFSHAN Rivers Original Note: Social Work SW received a referral from physician stating pt cannot return home at this time and would benefit from short term SNF or Inpatient Rehab placement. SW met with pt and introduced self and role of SW. Pt confirms that she does not feel she is moving well enough to return home and is requesting rehabilitation prior to discharge. SW explained both inpatient rehab and SNF options and provided a list of SNF and Rehab providers including quality and resource use data nad consistent with pt preferred geographic region, medical needs and insurance network. Pt does not feel she can tolerate 3 hours of therapy in inpt rehab. Pt preferred SNF is [facility]. Referral made to Carli in TCU and they are able to accept today. VM left for Dr. Reynoso updating. Hospitalist updated. Pt updated and pt denies SW notifying sister stating she will be calling her sister shortly and updating. Plan: TCU, when medically ready AFSHAN Rivers
[2021-06-26] MEDS: dilTIAZem CD 180 MG Capsule PO (11:03)
[2021-06-26] MEDS: Doxycycline 100 MG CAPSULE PO (11:03)
[2021-06-26] MEDS: APIXABAN 5 MG TABLET PO (11:03)
[2021-06-26] MEDS: Pantoprazole Sodium 40 MG Tablet PO (11:04)
[2021-06-26] MEDS: Senna/Docusate Sodium 1 Tablet 2 TABLET PO (11:04)
[2021-06-26] MEDS: Flecainide 100 MG Tablet 50 MG PO (11:04)
[2021-06-26] MEDS: guaiFENesin 1,200 MG Tablet 1200 MG PO (11:04)
[2021-06-26] MEDS: Furosemide 40 MG Tablet PO (11:04)
--- NOTE | 2021-06-26 12:12 | PCM.TXEXTCAR ---
Diet 06/25/21 07:15 Diet: Regular - General Is pt able to select menu?: Yes Routine Orders/Code Status Routine Lab Work: CBC Wound(s) left hip: Wound Type: Surgical Incision Therapies Weight Bearing: Weight bearing as tolerated Physical Therapy: Eval and Treat Occupational Therapy: Eval and Treat Problem/Diagnosis (1) S/P hip replacement: Status: Acute Allergies/Procedures Done in Hospital Allergies adhesive Allergy (Verified 06/24/21 10:11) SKIN TEARS. PAPER TAPE OK SKIN TEARS. PAPER TAPE OK azithromycin [From Zithromax] Allergy (Verified 06/24/21 10:11) Rash cefuroxime sodium [From Zinacef] Allergy (Verified 06/24/21 10:11) Rash clindamycin Allergy (Verified 06/24/21 10:11) Hives nitrofurantoin macrocrystalline [From Macrodantin] Allergy (Verified 06/24/21 10:11) Rash Sulfa (Sulfonamide Antibiotics) Allergy (Verified 06/24/21 10:11) Rash atenolol Adverse Reaction (Severe, Verified 06/24/21 10:11) Peripheal edema & cough metoprolol [From Toprol XL] Adverse Reaction (Severe, Verified 06/24/21 10:11) Peripheral edema & cough duloxetine [From Cymbalta] Adverse Reaction (Intermediate, Verified 06/24/21 10:11) made me feel really sick Corticosteroids (Glucocorticoids) Adverse Reaction (Verified 06/24/21 10:11) Other INDUCED MYOPATHY oxycodone HCl [From Percocet] Adverse Reaction (Verified 06/24/21 10:11) Vomiting Procedures: None Type of Care/Length of Stay Estimated LOS: Convalescent Care Less Than 30 days Type of Care Needed: Skilled Rehab Potential: Good Prognosis: Good Additional Orders/Day of Discharge Day of Discharge: 06/26/21 Follow Up Care Please Follow Up With: Kenton Ardon PA-C When: 07/09/2021 Discharge Plan Admission Admit Date/Time: 06/24/21 12:09 Primary Reason for Your Visit: Left Hip AVN Attending Provider: Nathaniel Reynoso Primary Care Provider: Ervin Donnelly Consulting Providers: Kenton Ardon ; Joo Hooks ; Joo Estes Discharge Orders/Prescriptions Prescriptions: No Action famotidine 40 mg tablet 40 mg PO QHS RF: 0 esomeprazole magnesium [Nexium] 40 mg capsule,delayed release(DR/EC) 40 mg PO DAILY RF: 0 potassium chloride 20 mEq tablet,ER particles/crystals 20 meq PO BID RF: 0 lactobacillus combination no.8 3 billion cell capsule 1 cell PO DAILY RF: 0 doxycycline hyclate 100 mg tablet 100 mg PO BID Qty: 20 RF: 0 ipratropium bromide 21 mcg (0.03 %) spray,non-aerosol 2 spray intranasal BID Qty: 30 RF: 1 levothyroxine 25 mcg tablet 25 mcg PO DAILY@0600 RF: 0 furosemide [Lasix] 40 mg tablet 40 mg PO BID RF: 0 cholecalciferol (vitamin D3) 50 mcg (2,000 unit) Capsule 50 mcg PO DAILY RF: 0 Mucus Relief ER 1,200 mg Tablet Extended Release 12hr 1,200 mg PO BID Qty: 14 RF: 0 ferrous sulfate 325 MG tablet 325 mg PO QODAY Qty: 0 RF: 0 hydrocodone-acetaminophen [[place]] 5-325 mg Tablet 1 tab PO Q6H PRN (Reason: Pain) RF: 0 diltiazem HCl [Cardizem CD] 180 mg capsule,extended release 24hr 180 mg PO DAILY RF: 0 montelukast [Singulair] 10 mg tablet 10 mg PO QHS RF: 0 Eliquis 5 mg tablet 5 mg PO BID RF: 0 doxycycline monohydrate 100 mg Capsule 100 mg PO BID RF: 0 enoxaparin [Lovenox] 100 mg/mL Syringe 100 mg SUBCUT Q12H RF: 0 albuterol sulfate 2.5 mg /3 mL (0.083 %) solution for nebulization 2.5 mg INHALATION Q4H PRN Qty: 180 RF: 6 atorvastatin [Lipitor] 10 mg tablet 10 mg PO QHS Qty: 90 RF: 3 Advair HFA 230-21 mcg/actuation HFA aerosol inhaler 2 puff INHALATION BID Qty: 3 RF: 11 flecainide 50 mg tablet 50 mg PO BID Qty: 180 RF: 3 Referrals / Follow Up: Ervin Donnelly MD [Primary Care Provider] - Nathaniel Reynoso MD [STAFF PHYSICIAN] - 07/09/21 3:45 pm (Appointment With NEDA Ardon PA-C as scheduled) Disposition Disposition (needs filled in before D/C Order can be placed): Home Health Service
--- NOTE | 2021-06-26 12:17 | DCINST_ITS ---
Discharge Instructions Diet Discharge Diet: Carb Control Diet Activity Discharge Activity: May Not Drive (while taking narcotic pain medications.) May shower in (days): 1 May resume sexual activity in: 6-8 weeks Ice area for (Minutes): 20 Weight Bearing Status: Weight bearing as tolerated Lifting Restrictions: none Additional Activity Instructions:: Wear elastic stockings for 2 weeks. DO NOT use alcohol with narcotic pain medication. DO NOT make important decisions while taking narcotic medication. If you have problems with taking your medication (rash, itching, nausea, etc.) call the office at once. Dressing / Incision Call your doctor if your incision/area has: Increased Redness and Foul Smelling Discharge Call your doctor if you observe: Fever of 101 or Higher Change Dressing in: 3 days (If incision is clean dry and intact may leave the wound open to air and continue showering. If there is continued drainage continue daily dry dressing changes and keep incision clean dry and intact until there is no drainage.) Remove Dressing in: 5 days Cleanse incision/area with: Soap & Water Additional Dressing/Incision Instructions:: If incision is clean dry and intact may leave the wound open to air and continue showering. If there is continued drainage continue daily dry dressing changes and keep incision clean dry and intact until there is no drainage. Follow Up Care Please Follow Up With: Kenton Ardon PA-C When: 07/09/2021 Test Results: Test results from this visit will be discussed in further detail at your follow-up appointment, if applicable. Discharge Plan Admission Admit Date/Time: 06/24/21 12:09 Primary Reason for Your Visit: Left Hip AVN Attending Provider: Nathaniel Reynoso Primary Care Provider: Ervin Donnelly Consulting Providers: Kenton Ardon ; Joo Hooks ; Joo Estes Discharge Orders/Prescriptions Prescriptions: New acetaminophen 500 mg Tablet 1,000 mg PO Q8 Qty: 0 RF: 0 sennosides-docusate sodium [Stool Softener-Stimulant Laxat] 8.6-50 mg Tablet 2 tab PO BID Qty: 0 RF: 0 Ensure Surgery 0.08-1.4 gram-kcal/mL Liquid 237 ml PO TIDCM Qty: 0 RF: 0 tramadol 50 mg Tablet 50 - 100 mg PO Q6H PRN PRN (Reason: Pain Score 4-10) 7 Days Qty: 60 RF: 0 Continued famotidine 40 mg tablet 40 mg PO QHS RF: 0 esomeprazole magnesium [Nexium] 40 mg capsule,delayed release(DR/EC) 40 mg PO DAILY RF: 0 potassium chloride 20 mEq tablet,ER particles/crystals 20 meq PO BID RF: 0 lactobacillus combination no.8 3 billion cell capsule 1 cell PO DAILY RF: 0 doxycycline hyclate 100 mg tablet 100 mg PO BID Qty: 20 RF: 0 ipratropium bromide 21 mcg (0.03 %) spray,non-aerosol 2 spray intranasal BID Qty: 30 RF: 1 levothyroxine 25 mcg tablet 25 mcg PO DAILY@0600 RF: 0 furosemide [Lasix] 40 mg tablet 40 mg PO BID RF: 0 cholecalciferol (vitamin D3) 50 mcg (2,000 unit) Capsule 50 mcg PO DAILY RF: 0 Mucus Relief ER 1,200 mg Tablet Extended Release 12hr 1,200 mg PO BID Qty: 14 RF: 0 ferrous sulfate 325 MG tablet 325 mg PO QODAY Qty: 0 RF: 0 diltiazem HCl [Cardizem CD] 180 mg capsule,extended release 24hr 180 mg PO DAILY RF: 0 montelukast [Singulair] 10 mg tablet 10 mg PO QHS RF: 0 Eliquis 5 mg tablet 5 mg PO BID RF: 0 doxycycline monohydrate 100 mg Capsule 100 mg PO BID Qty: 0 RF: 0 albuterol sulfate 2.5 mg /3 mL (0.083 %) solution for nebulization 2.5 mg INHALATION Q4H PRN Qty: 180 RF: 6 atorvastatin [Lipitor] 10 mg tablet 10 mg PO QHS Qty: 90 RF: 3 Advair HFA 230-21 mcg/actuation HFA aerosol inhaler 2 puff INHALATION BID Qty: 3 RF: 11 flecainide 50 mg tablet 50 mg PO BID Qty: 180 RF: 3 Discontinued hydrocodone-acetaminophen [[place]] 5-325 mg Tablet 1 tab PO Q6H PRN (Reason: Pain) RF: 0 enoxaparin [Lovenox] 100 mg/mL Syringe 100 mg SUBCUT Q12H RF: 0 Referrals / Follow Up: Ervin Donnelly MD [Primary Care Provider] - Nathaniel Reynoso MD [STAFF PHYSICIAN] - 07/09/21 3:45 pm (Appointment With NEDA Ardon PA-C as scheduled) Disposition Disposition (needs filled in before D/C Order can be placed): Home Health Service
--- NOTE | 2021-06-26 12:24 | PCM.DC.SUM ---
Providers Date of Admission: 06/24/21 Primary Care Physician: Dr. Ervin Donnelly MD Consultations 06/24/21 07:25 Consult: Hospitalist Routine Consulting Provider: Broderick Mitchell Reason for Consult: post op med management EMERGENT Consult: No MD Notified: Yes Date Notified: 06/24/21 Time Notified: 15:38 Method of Notification: Text Reason For Visit: LT ANTERIOR TOTAL HIP Diagnosis Discharge Diagnosis (1) S/P hip replacement: Status: Acute Code(s): Z96.649 - Presence of unspecified artificial hip joint Medications at Discharge Home Medications levothyroxine 25 mcg tablet 25 mcg PO DAILY@0600 01/04/20 albuterol sulfate 2.5 mg INHALATION Q4H PRN #180 vial 03/17/20 famotidine 40 mg tablet 40 mg PO QHS 04/02/20 cholecalciferol (vitamin D3) 50 mcg PO DAILY 09/19/20 furosemide [Lasix] 40 mg PO BID 09/19/20 Mucus Relief ER 1,200 mg PO BID #14 tab 09/22/20 ferrous sulfate 325 mg PO QODAY #0 tab 09/22/20 esomeprazole magnesium 40 mg capsule,delayed release 40 mg PO DAILY cap 10/13/20 potassium chloride 20 mEq tablet,extended release(part/cryst) 20 meq PO BID tab 10/13/20 atorvastatin 10 mg tablet 10 mg PO QHS #90 tab 11/27/20 flecainide 50 mg tablet 50 mg PO BID #180 tab 02/19/21 fluticasone propionate 230 mcg-salmeterol 21 mcg/actuation HFA inhaler 2 puff INHALATION BID #3 device 02/19/21 lactobacillus combination no.8 3 billion cell capsule 1 cell PO DAILY 03/25/21 Eliquis 5 mg PO BID 04/01/21 diltiazem HCl [Cardizem CD] 180 mg PO DAILY 04/01/21 montelukast [Singulair] 10 mg PO QHS 04/01/21 doxycycline hyclate 100 mg tablet 100 mg PO BID #20 tab 05/22/21 ipratropium bromide 21 mcg (0.03 %) nasal spray 2 spray INTRANASAL BID #30 ml 05/22/21 acetaminophen 1,000 mg PO Q8 #0 tab 06/26/21 doxycycline monohydrate 100 mg PO BID #0 cap 06/26/21 nut.tx.comp. immune systm,reg [Ensure Surgery] 237 ml PO TIDCM #0 ml 06/26/21 sennosides-docusate sodium [Stool Softener-Stimulant Laxat] 2 tab PO BID #0 tab 06/26/21 tramadol 50 - 100 mg PO Q6H PRN PRN 7 Days #60 tab 06/26/21 Hospital Course Operations total hip replacement Procedures None Summary of Care Provided Minutes Spent on Discharge: 30 Hospital Course: Patient was brought to the operating room on June 24 for a total hip replacement. She did require significant preoperative optimization. 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 She had total replacement without complications intraoperatively. She was transferred to the floor. She did have difficulty mobilizing postoperatively due to weakness and fatigue. Additionally she has chronic pulmonary disease including previous pneumonia and COPD. She did have some fevers however she was medically stable. Fevers attributed to atelectasis. Patient was medically cleared and ready for discharge to transitional care unit based on her physical limitations and limited social support at home. She was eventually ready for discharge on postoperative day 2. Physical Exam Resp Resp Narrative: Cough Extremity Extremity Narrative: Left lower extremity: Thigh soft and supple Dressing is clean dry and intact Sensations intact to light touch saphenous, sural, superficial peroneal, deep peroneal, and tibial distributions Motors intact EHL, DF, PF calves are soft and supple Weight / BMI Weight Weight: 235 lb 14.314 oz Body Mass Index (BMI) 44.5 ABG / Lab / Microbiology Data Result Diagrams: 06/26/21 04:42 06/26/21 04:42 Laboratory: Laboratory Results - last 24 hr 06/26/21 04:42: WBC 7.6, RBC 2.94 L, Hgb 8.4 L, Hct 28.3 L, MCV 96.3, MCH 28.6, MCHC 29.7 L, RDW Std Deviation 49.3 H, RDW Coeff of Lanre 14.1, Plt Count 275, MPV 9.9 06/26/21 04:42: Sodium 141, Potassium 3.4 L, Chloride 108 H, Carbon Dioxide 26.0, Anion Gap 7, BUN 25 H, Creatinine 1.12 H, Estim Creat Clear Calc 36.78, Est GFR (MDRD) Af Amer 62, Est GFR (MDRD) Non-Af 52 L, BUN/Creatinine Ratio 22.3 H, Glucose 142 H, Calcium 8.6 Microbiology: Microbiology 06/22/21 12:45 Interface Orders SARS-CoV-2 Antigen (Rapid) - Final 06/08/21 14:46 Swab (Method) Nasal Screen MRSA/MSSA - Final Radiography Diagnostic Testing: Radiology Impression Chest X-Ray 06/26/21 07:34 IMPRESSION: Stable mild increased markings at the lung bases suggestive of scarring. Stable 1.1 cm nodule in the peripheral lateral aspect of the right mid lung. Electronically Signed: Lance Back MD at 8:08 EDT , D/C Instructions Discharge Diet: Carb Control Diet May shower in (days): 1 May resume sexual activity in: 6-8 weeks Ice area for (Minutes): 20 Weight Bearing Status: Weight bearing as tolerated Additional Activity Instructions: Wear elastic stockings for 2 weeks. DO NOT use alcohol with narcotic pain medication. DO NOT make important decisions while taking narcotic medication. If you have problems with taking your medication (rash, itching, nausea, etc.) call the office at once. Call your doctor if your incision/area has: Increased Redness and Foul Smelling Discharge Call your doctor if you observe: Fever of 101 or Higher Cleanse incision/area with: Soap & Water Additional Dressing/Incision Instructions: If incision is clean dry and intact may leave the wound open to air and continue showering. If there is continued drainage continue daily dry dressing changes and keep incision clean dry and intact until there is no drainage. Please Follow Up With: Kenton Ardon PA-C When: 07/09/2021 Meaningful Use Info Meaningful Use Diagnoses (Choose all that apply): None applicable Discharge Plan Admission Admit Date/Time: 06/24/21 12:09 Primary Reason for Your Visit: Left Hip AVN Attending Provider: Nathaniel Reynoso Primary Care Provider: Ervin Donnelly Consulting Providers: Kenton Ardon ; Joo Hooks ; Joo Estes Discharge Orders/Prescriptions Prescriptions: New acetaminophen 500 mg Tablet 1,000 mg PO Q8 Qty: 0 RF: 0 sennosides-docusate sodium [Stool Softener-Stimulant Laxat] 8.6-50 mg Tablet 2 tab PO BID Qty: 0 RF: 0 Ensure Surgery 0.08-1.4 gram-kcal/mL Liquid 237 ml PO TIDCM Qty: 0 RF: 0 tramadol 50 mg Tablet 50 - 100 mg PO Q6H PRN PRN (Reason: Pain Score 4-10) 7 Days Qty: 60 RF: 0 Continued famotidine 40 mg tablet 40 mg PO QHS RF: 0 esomeprazole magnesium [Nexium] 40 mg capsule,delayed release(DR/EC) 40 mg PO DAILY RF: 0 potassium chloride 20 mEq tablet,ER particles/crystals 20 meq PO BID RF: 0 lactobacillus combination no.8 3 billion cell capsule 1 cell PO DAILY RF: 0 doxycycline hyclate 100 mg tablet 100 mg PO BID Qty: 20 RF: 0 ipratropium bromide 21 mcg (0.03 %) spray,non-aerosol 2 spray intranasal BID Qty: 30 RF: 1 levothyroxine 25 mcg tablet 25 mcg PO DAILY@0600 RF: 0 furosemide [Lasix] 40 mg tablet 40 mg PO BID RF: 0 cholecalciferol (vitamin D3) 50 mcg (2,000 unit) Capsule 50 mcg PO DAILY RF: 0 Mucus Relief ER 1,200 mg Tablet Extended Release 12hr 1,200 mg PO BID Qty: 14 RF: 0 ferrous sulfate 325 MG tablet 325 mg PO QODAY Qty: 0 RF: 0 diltiazem HCl [Cardizem CD] 180 mg capsule,extended release 24hr 180 mg PO DAILY RF: 0 montelukast [Singulair] 10 mg tablet 10 mg PO QHS RF: 0 Eliquis 5 mg tablet 5 mg PO BID RF: 0 doxycycline monohydrate 100 mg Capsule 100 mg PO BID Qty: 0 RF: 0 albuterol sulfate 2.5 mg /3 mL (0.083 %) solution for nebulization 2.5 mg INHALATION Q4H PRN Qty: 180 RF: 6 atorvastatin [Lipitor] 10 mg tablet 10 mg PO QHS Qty: 90 RF: 3 Advair HFA 230-21 mcg/actuation HFA aerosol inhaler 2 puff INHALATION BID Qty: 3 RF: 11 flecainide 50 mg tablet 50 mg PO BID Qty: 180 RF: 3 Discontinued hydrocodone-acetaminophen [[place]] 5-325 mg Tablet 1 tab PO Q6H PRN (Reason: Pain) RF: 0 enoxaparin [Lovenox] 100 mg/mL Syringe 100 mg SUBCUT Q12H RF: 0 Referrals / Follow Up: Ervin Donnelly MD [Primary Care Provider] - Nathaniel Reynoso MD [STAFF PHYSICIAN] - 07/09/21 3:45 pm (Appointment With NEDA Ardon PA-C as scheduled) Disposition Disposition (needs filled in before D/C Order can be placed): Home Health Service
[2021-06-26 13:03] VITALS: PULSE 85; RESP 20
[2021-06-26 14:09] VITALS: BP 96/52; PULSE 92; RESP 16; TEMP 37.7; O2SAT 96
== END 2021-06-26 14:55 | disposition skilled nursing facility (03) ==
LOC: SDC 12:09 → MS3 12:09
PROVIDERS: Anesthesiology; Physician Assistant Surgical; Admitting Provider Specialist; PCP Family Medicine; Referring Provider Specialist; Visit Provider Specialist
PROC: (CPT 27284; principal; 2021-06-24 11:20)
DX: M16.12 Unilateral primary osteoarthritis, left hip (principal); E11.51 Type 2 diabetes mellitus with diabetic peripheral angiopathy without gangrene; M87.052 Idiopathic aseptic necrosis of left femur; J44.9 Chronic obstructive pulmonary disease, unspecified; I13.0 Hypertensive heart and chronic kidney disease with heart failure and stage 1 through stage 4 chronic kidney disease, or unspecified chronic kidney disease; I50.32 Chronic diastolic (congestive) heart failure; E11.22 Type 2 diabetes mellitus with diabetic chronic kidney disease; I48.0 Paroxysmal atrial fibrillation; E66.01 Morbid (severe) obesity due to excess calories; Z68.41 Body mass index [BMI] 40.0-44.9, adult; N18.32 Chronic kidney disease, stage 3b; Z86.711 Personal history of pulmonary embolism; G47.33 Obstructive sleep apnea (adult) (pediatric); E03.9 Hypothyroidism, unspecified; K21.9 Gastro-esophageal reflux disease without esophagitis; Z87.891 Personal history of nicotine dependence; Z86.14 Personal history of Methicillin resistant Staphylococcus aureus infection; J98.11 Atelectasis; Z79.01 Long term (current) use of anticoagulants; E78.5 Hyperlipidemia, unspecified; Z79.899 Other long term (current) drug therapy; Z79.890 Hormone replacement therapy
CPT/HCPCS: 27130; 01214; 36415; 71045; 73502; 76000; 80048; 82040; 82962; 83735; 85025; 85027; 87081; 87426; 88305; 88311; 94640; 96361; 96365; 96366; 96367; 96375; 96376; 97110; 97116; 97162; 97166; 97530; 97535; 99218; 99251; C1776; C9803; J7040; J7120; A4216; G0378; G0463; J2405; J3475

== ENCOUNTER 2021-06-26 15:27 | Inpatient (IN) | payer MEDICARE, OTHER, SELFPAY ==
--- NOTE | 2021-06-26 15:30 | HP.PCM_ITS ---
HPI - General General Date of Admission: 06/26/21 HPI Narrative LAURA SERRANO, is a 66 Female who presents with followin06/24/2021 Dr. Reynoso performed left minimally invasive direct anterior hip replacement. 06/25/2021 Cough, on room air. Monitor cough. 06/26/2021 Fever 39.4, Feels sick. Fever resolved, Chest X-ray showed chronic changes. 06/26/2021 Pain not well controlled. 06/26/2021 Admit to TCU with debility, here for rehabilitation, strengthening, prior to discharge home alone. [facility] Medical History Abnormal chest CT Acute bronchiolitis Acute respiratory failure ALEXYS (acute kidney injury) Allergic rhinitis Anemia Anxiety Aspiration into airway Asthma Atrial fibrillation with rapid ventricular response Atrial tachycardia Back pain Benign essential HTN Bronchiectasis Bronchiectasis with (acute) exacerbation Cardiology follow-up encounter Cellulitis of right lower extremity Chronic diastolic heart failure Chronic respiratory failure Coarse tremors COLD (chronic obstructive lung disease) Congestive heart failure (CHF) Diabetes Diabetes mellitus DVT (deep venous thrombosis) Easy bruising Former smoker Gastroesophageal reflux disease HCAP (healthcare-associated pneumonia) High cholesterol History of DVT (deep vein thrombosis) History of echocardiogram History of edema 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 History of renal disease History of stress test Hx pulmonary embolism Hyperlipidemia Hypertension Hypothyroidism Hypoxemia Injury of back Insomnia Kidney disease Lung nodule Migraine headache Morbid obesity MRSA pneumonia Obesity GAGAN (obstructive sleep apnea) Pain of left hip Paroxysmal atrial fibrillation Paroxysmal atrial tachycardia Pneumonia Precordial chest pain Pulmonary embolism PVD (peripheral vascular disease) Right foot pain Severe sepsis Shortness of breath on exertion Steroid myopathy Tachycardia Thrush, oral Umbilical hernia Venous thromboembolism (VTE) Walker as ambulation aid Weakness Wears glasses Home Medications levothyroxine 25 mcg tablet 25 mcg PO DAILY@0600 01/04/20 [History Last Taken 06/24/21] albuterol sulfate 2.5 mg INHALATION Q4H PRN #180 vial 03/17/20 [Rx Last Taken 06/23/21] famotidine 40 mg tablet 40 mg PO QHS 04/02/20 [History Last Taken 06/23/21] cholecalciferol (vitamin D3) 50 mcg PO DAILY 09/19/20 [History Last Taken ] furosemide [Lasix] 40 mg PO BID 09/19/20 [History Last Taken 06/23/21] esomeprazole magnesium 40 mg capsule,delayed release 40 mg PO DAILY cap 10/13/20 [History Last Taken 06/24/21] potassium chloride 20 mEq tablet,extended release(part/cryst) 20 meq PO BID tab 10/13/20 [History Last Taken 06/23/21] flecainide 50 mg tablet 50 mg PO BID #180 tab 02/19/21 [Rx Last Taken 06/23/21] lactobacillus combination no.8 3 billion cell capsule 1 cell PO DAILY 03/25/21 [History Last Taken 06/23/21] Eliquis 5 mg PO BID 04/01/21 [History Last Taken 05/21/21] diltiazem HCl [Cardizem CD] 180 mg PO DAILY 04/01/21 [History Last Taken 06/24/21] montelukast [Singulair] 10 mg PO QHS 04/01/21 [History Last Taken 06/23/21] Advair HFA 2 puff INHALATION BID 06/26/21 [History Last Taken Unknown] Mucus Relief ER 1,200 mg PO BID 06/26/21 [History Last Taken Unknown] acetaminophen 1,000 mg PO Q8 06/26/21 [History Last Taken Unknown] atorvastatin [Lipitor] 10 mg PO QHS 06/26/21 [History Last Taken Unknown] doxycycline hyclate 100 mg PO BID 06/26/21 [History Last Taken Unknown] ferrous sulfate 325 mg PO QODAY 06/26/21 [History Last Taken Unknown] ipratropium bromide 2 spray INTRANASAL BID 06/26/21 [History Last Taken Unknown] nut.tx.comp. immune systm,reg [Ensure Surgery] 237 ml PO TIDCM 06/26/21 [History Last Taken Unknown] sennosides-docusate sodium [Stool Softener-Stimulant Laxat] 2 tab PO BID [History Last Taken Unknown] tramadol 50 - 100 mg PO Q6H PRN PRN 7 Days #60 tab 06/26/21 [Rx Last Taken Unknown] Allergy/AdvReac Type Severity Reaction Status Date / Time adhesive Allergy SKIN Verified 06/24/21 10:11 TEARS. PAPER TAPE OK azithromycin [From Zithromax] Allergy Rash Verified 06/24/21 10:11 cefuroxime sodium Allergy Rash Verified 06/24/21 10:11 [From Zinacef] clindamycin Allergy Hives Verified 06/24/21 10:11 nitrofurantoin Allergy Rash Verified 06/24/21 10:11 macrocrystalline [From Macrodantin] Sulfa (Sulfonamide Allergy Rash Verified 06/24/21 10:11 Antibiotics) atenolol AdvReac Severe Peripheal Verified 06/24/21 10:11 edema & cough metoprolol [From Toprol XL] AdvReac Severe Peripheral Verified 06/24/21 10:11 edema & cough duloxetine [From Cymbalta] AdvReac Intermediate made me Verified 06/24/21 10:11 feel really sick Corticosteroids AdvReac Other Verified 06/24/21 10:11 (Glucocorticoids) oxycodone HCl [From Percocet] AdvReac Vomiting Verified 06/24/21 10:11 Family History Mother Hypertension Diabetes Heart disease Pulmonary embolism Father Perforated ulcer Respiratory failure Sister Asthma Hypertension Surgical History H/O section H/O foot surgery H/O hernia repair H/O shoulder surgery H/O: hysterectomy History of appendectomy History of cardioversion (~12/2016) History of left heart catheterization Hx of vein stripping S/P hysterectomy Social History (Updated 06/26/21 @ 15:[address] Jose Angel Kaur MD) household members: none Smoking Status: Former smoker quit date: 02/14/75 pack-years: 3 second hand exposure: No alcohol intake: never substance use type: does not use caffeine: No what type of physical activity do you participate in: none ROS Constitutional Constitutional: Denies chills, fever(s) or weight gain ENT HEENT: Denies headache(s), nasal congestion or nasal discharge Cardiovascular Cardiovascular: Denies chest pain or palpitations Respiratory/Chest Respiratory/Chest: Denies cough, excessive phlegm production or shortness of breath with exertion Gastrointestinal Gastrointestinal: Denies abdominal pain, nausea or vomiting Genitourinary Genitourinary: Denies dysuria Musculoskeletal Musculoskeletal: Reports joint pain and other Details: Left hip pain. Integumentary Integumentary: Denies rash or wounds Neurologic Neurologic: Denies focal weakness, numbness or tingling Psychiatric Psychiatric: Denies anxiety, auditory hallucinations, depression, homicidal ideation or suicidal ideation Physical Exam Const alert General Appearance: cooperative HEENT normocephalic Eyes PERRL and EOMs intact bilaterally Neck supple, no JVD and no carotid bruits Resp normal respiratory effort and normal air movement Auscultation: crackles and rhonchi Cardio regular rate and regular rhythm GI normal to inspection, nondistended, normoactive bowel sounds, non-tender and non-distended Extremity normal capillary refill General Extremity: Negative for edema Skin no rashes or lesions noted General Skin Exam: no breakdown Psych affect normal Appearance: appropriate Assessment & Plan Assessment/Plan (1) Debility: (2) S/P total left hip arthroplasty: (3) Osteoarthritis of left hip: (4) Hypertension: (5) Atrial fibrillation: (6) Diabetes mellitus: (7) Pulmonary embolism: (8) Asthma: (9) Bronchiectasis: (10) Chronic kidney disease, stage 3a: (11) Heart failure with preserved ejection fraction: PLAN: 66 year old female with below past medical history hospitalized for left hip replacement 06/24/[address] Reynoso, complicated by fever, cough, admitted to TCU with debility, here for rehabilitation, strengthening, prior to discharge home alone. * Debility - PT/OT. * Pain - Tylenol 1000mg q8h, Tramadol 50mg q6h prn pain (1-5), Oxycodone 5mg q4h prn pain (6-10). * Bowel - Senna/colace 2 tablets bid, Dulcolax 10mg daily prn. * Adult immunization - Administer pneumonia vaccine, flu vaccine, covid19 vaccine as appropriate. * DVT prophylaxis - Not necessary, already on Eliquis. * Nutrition - Ensure Surgery 237ml po tidcm. * GERD (severe) - Pantoprazole 40mg daily, Famotidine 40mg daily. * Hypokalemia - KCL 20meq bid. * GI prophylaxis - Lactobacillus 1 tablet daily. * ID - Doxycycline 100mg bid x 10 days. * Allergic rhinitis - Atrovent 2 sprays nasal bid. * Hypothyroidism - Levothyroxine 25mcg daily. * Heart failure with preserve ejection fraction - Lasix 40mg bid. * Vitamin D deficiency - D3 2000IU daily. * Congestion - Mucinex 1200mg bid. * Iron deficiency anemia - Ferrous sulfate 325mg every other day. * Atrial fibrillation - Diltiazem 180mg daily,Flecainide 50mg bid, Eliquis 5mg bid. * Asthma - Advair 230-21mg 2 puffs bid, Singulair 10mg daily, Albuterol 2.5mg neb q4h prn. * Hyperlipidemia - Atorvastatin 10mg qhs.
[2021-06-26 15:38] VITALS: BMI 45.6
[2021-06-26 16:17] VITALS: BP 111/56; PULSE 87; RESP 20; TEMP 36.4; O2SAT 93
[2021-06-26] MEDS: Potassium Chloride Oral Tablet 20 MEQ PO (18:22)
[2021-06-26] MEDS: Doxycycline 100 MG CAPSULE PO (18:24)
[2021-06-26] MEDS: APIXABAN 5 MG TABLET PO (18:24)
[2021-06-26] MEDS: Flecainide 100 MG Tablet 50 MG PO (18:25)
[2021-06-26] MEDS: guaiFENesin 1,200 MG Tablet 1200 MG PO (18:25)
[2021-06-26] MEDS: Furosemide 40 MG Tablet PO (18:25)
[2021-06-26] MEDS: Senna/Docusate Sodium 1 Tablet 2 TABLET PO (18:25)
[2021-06-26] MEDS: Fluticasone/Salmeterol 232-14 Inhaler 1 PUFF INHALATION (18:27)
[2021-06-26] MEDS: traMADol 50 MG Tablet 100 MG PO (20:20)
[2021-06-26] MEDS: Menthol/Lanolin/Calamine/Znox 113 GM Tube 1 APPLIC TOPICAL (21:30)
[2021-06-26] MEDS: Nystatin Powder 15gm Bottle 1 APPLIC TOPICAL (21:31)
[2021-06-26] MEDS: Acetaminophen 500 MG Tablet 1000 MG PO (21:33)
[2021-06-26] MEDS: Montelukast 10 MG Tablet PO (21:33)
[2021-06-26] MEDS: Atorvastatin Calcium 10 MG Tablet PO (21:34)
[2021-06-26] MEDS: Famotidine 20 MG Tablet 40 MG PO (21:40)
[2021-06-27] MEDS: traMADol 50 MG Tablet 100 MG PO ×3 (06:23→18:31)
[2021-06-27] MEDS: Senna/Docusate Sodium 1 Tablet 2 TABLET PO ×2 (06:23→17:06)
[2021-06-27] MEDS: Furosemide 40 MG Tablet PO ×2 (06:24→17:05)
[2021-06-27] MEDS: Levothyroxine 25 MCG TABLET PO (06:24)
[2021-06-27] MEDS: Flecainide 100 MG Tablet 50 MG PO ×2 (06:24→17:06)
[2021-06-27] MEDS: Acetaminophen 500 MG Tablet 1000 MG PO ×3 (06:24→21:10)
[2021-06-27] MEDS: Cholecalciferol (VIT D3) 25 MCG TABLET (1,000 UNITS) 50 MCG PO (06:25)
[2021-06-27] MEDS: Doxycycline 100 MG CAPSULE PO ×2 (06:25→17:04)
[2021-06-27] MEDS: APIXABAN 5 MG TABLET PO ×2 (06:26→17:04)
[2021-06-27] MEDS: dilTIAZem CD 180 MG Capsule PO (06:26)
[2021-06-27] MEDS: guaiFENesin 1,200 MG Tablet 1200 MG PO ×2 (06:27→17:05)
[2021-06-27] MEDS: Menthol/Lanolin/Calamine/Znox 113 GM Tube 1 APPLIC TOPICAL ×2 (06:28→17:04)
[2021-06-27] MEDS: Nystatin Powder 15gm Bottle 1 APPLIC TOPICAL ×2 (06:28→17:05)
[2021-06-27] MEDS: Fluticasone/Salmeterol 232-14 Inhaler 1 PUFF INHALATION ×2 (06:30→17:05)
[2021-06-27] MEDS: Pantoprazole Sodium 40 MG Tablet PO (06:36)
[2021-06-27 06:51] LABS: Absolute Lymphocyte Count 1.42 X10^3/uL (0.83-4.51); Absolute Neutrophil Count 4.8 X10^3/uL (2.0-7.7); Basophil# 0.03 X10^3/uL; Basophil% 0.4 % (0-1); Eosinophil# 0.24 X10^3/uL; Eosinophils% 3.3 % (0-5); Hematocrit 26.1 % (37-47); Hemoglobin 7.9 g/dL (12.0-15.0); Lymphocyte # 1.42 X10^3/ul (0.83-4.51); Lymphocyte % 19.6 % (19-41); Mean Corp Hgb Conc 30.3 g/dL (32-36); Mean Corpuscular Hgb 29.4 pg (27.0-32.0); Mean Platelet Vol. 10.1 fl (6.2-12.0); Monocyte# 0.75 X10^3/uL; Monocyte% 10.4 % (0-10); NRBC Flagged by Analyzer 0 % (0-5); Neutrophil # 4.76 X10^3/uL (2.7-7.7); Neutrophil % 65.7 % (47-70); Platelet Count 271 K/mm3 (150-450); RBC Distribution Width CV 14.2 % (11.6-14.6); RBC Distribution Width SD 50.4 fl (35.1-43.9); Red Blood Count 2.69 M/mm3 (4.2-5.4); White Blood Count 7.2 K/mm3 (4.4-11.0)
[2021-06-27 07:20] LABS: Anion Gap 6 (5-15); BUN 25 mg/dL (7-18); BUN/Creat Ratio 27.4 RATIO (10-20); Calcium,Total 8.6 mg/dL (8.5-10.1); Chloride 109 mmol/L (98-107); Creatinine, Serum 0.91 mg/dL (0.55-1.02); EST Glomerular Filtration Rate 65 mL/min (>60); Est Glom Filt Rate - Afr Amer 79 mL/min (>60); Estimated Creatinine Clearance 45.27 ml/min; Glucose 110 mg/dL (74-106); Potassium 3.6 mmol/L (3.5-5.1); Sodium Level 141 mmol/L (136-145)
[2021-06-27] MEDS: Potassium Chloride Oral Tablet 20 MEQ PO ×2 (08:09→17:04)
[2021-06-27 08:30] VITALS: PULSE 78; RESP 18; O2SAT 94
[2021-06-27] MEDS: Albuterol 2.5 MG/3 ML VIAL.NEB. INHALATION ×4 (08:30→19:08)
[2021-06-27] MEDS: Tuberculin,Purif.prot.deriv. 50 TU/ML Vial 0.1 ML ID (10:09)
[2021-06-27 11:40] VITALS: PULSE 79; RESP 18
[2021-06-27] MEDS: Ferrous Sulfate 325 MG Tablet PO (11:58)
[2021-06-27 14:45] VITALS: BP 100/56; PULSE 79; RESP 14; TEMP 36.4; O2SAT 94
[2021-06-27 15:51] VITALS: PULSE 80; RESP 18
[2021-06-27 19:08] VITALS: PULSE 88; RESP 12
[2021-06-27] MEDS: Montelukast 10 MG Tablet PO (21:10)
[2021-06-27] MEDS: Famotidine 20 MG Tablet 40 MG PO (21:10)
[2021-06-27] MEDS: Atorvastatin Calcium 10 MG Tablet PO (21:10)
--- NOTE | 2021-06-27 22:46 | PCA ---
This PAYROLL ACCOUNTING MANAGER offered to help patient get washed and ready for bed. Patient stated that they were in too much pain and did not wish to be bothered with any of that tonight. Patient did not get into bed at this time.
[2021-06-28] MEDS: traMADol 50 MG Tablet 100 MG PO ×4 (00:31→20:25)
[2021-06-28 01:12] VITALS: PULSE 84; RESP 12
[2021-06-28] MEDS: Albuterol 2.5 MG/3 ML VIAL.NEB. INHALATION ×4 (01:12→19:20)
[2021-06-28 06:18] VITALS: BP 109/56; PULSE 82; RESP 18; TEMP 37.2; O2SAT 91
[2021-06-28] MEDS: Acetaminophen 500 MG Tablet 1000 MG PO ×3 (06:18→20:26)
[2021-06-28] MEDS: Cholecalciferol (VIT D3) 25 MCG TABLET (1,000 UNITS) 50 MCG PO (06:18)
[2021-06-28] MEDS: Senna/Docusate Sodium 1 Tablet 2 TABLET PO ×2 (06:18→16:59)
[2021-06-28] MEDS: Furosemide 40 MG Tablet PO ×2 (06:19→17:00)
[2021-06-28] MEDS: APIXABAN 5 MG TABLET PO ×2 (06:19→17:00)
[2021-06-28] MEDS: Doxycycline 100 MG CAPSULE PO ×2 (06:19→16:58)
[2021-06-28] MEDS: Levothyroxine 25 MCG TABLET PO (06:19)
[2021-06-28] MEDS: Pantoprazole Sodium 40 MG Tablet PO (06:19)
[2021-06-28] MEDS: Flecainide 100 MG Tablet 50 MG PO ×2 (06:19→16:58)
[2021-06-28] MEDS: guaiFENesin 1,200 MG Tablet 1200 MG PO ×2 (06:20→16:58)
[2021-06-28] MEDS: dilTIAZem CD 180 MG Capsule PO (06:20)
[2021-06-28] MEDS: Nystatin Powder 15gm Bottle 1 APPLIC TOPICAL ×2 (06:22→16:58)
[2021-06-28] MEDS: Menthol/Lanolin/Calamine/Znox 113 GM Tube 1 APPLIC TOPICAL ×2 (06:22→16:57)
[2021-06-28] MEDS: Fluticasone/Salmeterol 232-14 Inhaler 1 PUFF INHALATION ×2 (06:23→16:59)
[2021-06-28 07:35] VITALS: PULSE 78; RESP 18; O2SAT 96
[2021-06-28] MEDS: Potassium Chloride Oral Tablet 20 MEQ PO ×2 (08:00→16:58)
--- NOTE | 2021-06-28 09:02 | RAD_ITS ---
STUDY: X-RAY CHEST REASON FOR EXAM: Female, 66 years old. Wheezes and Ronchi TECHNIQUE: PA and lateral views of the chest. COMPARISON: 06/26/2021 FINDINGS: No change in 1 cm nodule in the mid right lung. The patient has had recent CT the chest. There is no demonstrated pleural abnormality. There is moderate cardiac enlargement. Normal mediastinum and tami. Normal visualized pulmonary arteries. Normal visualized aortic arch and descending thoracic aorta. Normal visualized thoracic spine. Status post right shoulder hemiarthroplasty. There is no demonstrated abnormality of the visualized soft tissue structures of the upper abdomen. RAD/Chest PA and Lateral IMPRESSION: No change from 06/26/2021. Electronically Signed: Johnny Mo MD at 11:16 EDT ,
--- NOTE | 2021-06-28 09:03 | NURSING ---
Notified Dr. Kaur that pt is requesting a Lidoderm patch for her left hip pain. Also respiratory therapy reporting pt has inspiratory and expiratory wheezes and expiratory ronchi. Received order for chest xray and Lidoderm patch.
--- NOTE | 2021-06-28 10:25 | NURSING ---
Patient off of floor at this time, heading to Imaging for CXR
[2021-06-28] MEDS: Lidocaine 5% Patch 1 PATCH TOPICAL (12:59)
[2021-06-28 15:01] VITALS: BP 126/60; PULSE 83; RESP 20; TEMP 36; O2SAT 95
[2021-06-28 15:13] VITALS: PULSE 84; RESP 18; O2SAT 98
[2021-06-28 19:20] VITALS: PULSE 87; RESP 12
[2021-06-28] MEDS: Montelukast 10 MG Tablet PO (20:27)
[2021-06-28] MEDS: Famotidine 20 MG Tablet 40 MG PO (20:27)
[2021-06-28] MEDS: Atorvastatin Calcium 10 MG Tablet PO (20:27)
[2021-06-29] VITALS (7 sets, daily range): BP systolic 114–127; BP diastolic 61–65; PULSE 79–93; RESP 16–22; TEMP 36.3–37.9; O2SAT 96–97
[2021-06-29 06:10] LABS: Absolute Lymphocyte Count 1.25 X10^3/uL (0.83-4.51); Absolute Neutrophil Count 3.6 X10^3/uL (2.0-7.7); Basophil# 0.02 X10^3/uL; Basophil% 0.3 % (0-1); Eosinophil# 0.32 X10^3/uL; Eosinophils% 5.5 % (0-5); Hematocrit 29.3 % (37-47); Hemoglobin 8.5 g/dL (12.0-15.0); Lymphocyte # 1.25 X10^3/ul (0.83-4.51); Lymphocyte % 21.3 % (19-41); Mean Corpuscular Hgb 28.2 pg (27.0-32.0); Mean Corpuscular Volume 97.3 fL (81-99); Mean Platelet Vol. 9.7 fl (6.2-12.0); Monocyte# 0.61 X10^3/uL; Monocyte% 10.4 % (0-10); NRBC Flagged by Analyzer 0 % (0-5); Neutrophil # 3.64 X10^3/uL (2.7-7.7); Platelet Count 377 K/mm3 (150-450); RBC Distribution Width CV 14.2 % (11.6-14.6); RBC Distribution Width SD 50.4 fl (35.1-43.9); Red Blood Count 3.01 M/mm3 (4.2-5.4); White Blood Count 5.9 K/mm3 (4.4-11.0)
[2021-06-29] MEDS: dilTIAZem CD 180 MG Capsule PO (07:01)
[2021-06-29] MEDS: Cholecalciferol (VIT D3) 25 MCG TABLET (1,000 UNITS) 50 MCG PO (07:02)
[2021-06-29] MEDS: APIXABAN 5 MG TABLET PO ×2 (07:02→17:10)
[2021-06-29] MEDS: Levothyroxine 25 MCG TABLET PO (07:02)
[2021-06-29] MEDS: Flecainide 100 MG Tablet 50 MG PO ×2 (07:02→17:11)
[2021-06-29] MEDS: Acetaminophen 500 MG Tablet 1000 MG PO ×3 (07:02→20:57)
[2021-06-29] MEDS: Doxycycline 100 MG CAPSULE PO ×2 (07:02→17:10)
[2021-06-29] MEDS: Furosemide 40 MG Tablet PO ×2 (07:02→17:10)
[2021-06-29] MEDS: Pantoprazole Sodium 40 MG Tablet PO (07:03)
[2021-06-29] MEDS: Fluticasone/Salmeterol 232-14 Inhaler 1 PUFF INHALATION ×2 (07:03→17:06)
[2021-06-29] MEDS: Senna/Docusate Sodium 1 Tablet 2 TABLET PO (07:03)
[2021-06-29] MEDS: Nystatin Powder 15gm Bottle 1 APPLIC TOPICAL ×2 (07:03→17:09)
[2021-06-29] MEDS: Menthol/Lanolin/Calamine/Znox 113 GM Tube 1 APPLIC TOPICAL ×2 (07:03→17:09)
[2021-06-29] MEDS: guaiFENesin 1,200 MG Tablet 1200 MG PO ×2 (07:51→17:06)
[2021-06-29] MEDS: Potassium Chloride Oral Tablet 20 MEQ PO ×2 (07:53→17:06)
[2021-06-29] MEDS: traMADol 50 MG Tablet 100 MG PO ×3 (09:12→23:50)
[2021-06-29] MEDS: Gabapentin 100 MG Capsule PO (09:13)
[2021-06-29] MEDS: Lidocaine 5% Patch 1 PATCH TOPICAL (09:14)
--- NOTE | 2021-06-29 09:27 | NURSING ---
SILVER SURGERY MEPILEX REMOVED PER ORDER. NO DRAINAGE,STRI STRIPS ATTACHED,BRUISING. APPLIED ABD PER PT REQUEST.
[2021-06-29] MEDS: Albuterol 2.5 MG/3 ML VIAL.NEB. INHALATION ×3 (11:12→20:20)
[2021-06-29] MEDS: Ferrous Sulfate 325 MG Tablet PO (11:25)
--- NOTE | 2021-06-29 12:25 | CASEMGMT ---
Social Work Met with patient for initial assessment. Introduced self and role. Pt wishes to have sister be primary contact. Discussed code status and MOLST form. Pt confirms full code. MOLST communicated to , placed in chart. Explained Medicare benefit. Encouraged to contact secondary insurance to ensure copay coverage. Medicaid is tertiary insurance; explained TCU is not in network with [facility], thus it would not cover copays. The goal is for pt to return home and resume caring for 25 y.o. special needs dtr. Sister and ex- are assisting with dtr's care currently. Pt has 2 steps to enter, despite ramp. SW to continue to follow for DC planning. Zainab Murillo, MARYURI PALACIOW
--- NOTE | 2021-06-29 15:10 | CPS ---
helped patient get her own vest on, and started it up.
--- NOTE | 2021-06-29 16:03 | PCM.PN.RX ---
Progress Note - Pharmacy Subjective: TCU ADMISSION Objective: Allergies adhesive Allergy (Verified 06/24/21 10:11) SKIN TEARS. PAPER TAPE OK SKIN TEARS. PAPER TAPE OK azithromycin [From Zithromax] Allergy (Verified 06/24/21 10:11) Rash cefuroxime sodium [From Zinacef] Allergy (Verified 06/24/21 10:11) Rash clindamycin Allergy (Verified 06/24/21 10:11) Hives nitrofurantoin macrocrystalline [From Macrodantin] Allergy (Verified 06/24/21 10:11) Rash Sulfa (Sulfonamide Antibiotics) Allergy (Verified 06/24/21 10:11) Rash atenolol Adverse Reaction (Severe, Verified 06/24/21 10:11) Peripheal edema & cough metoprolol [From Toprol XL] Adverse Reaction (Severe, Verified 06/24/21 10:11) Peripheral edema & cough duloxetine [From Cymbalta] Adverse Reaction (Intermediate, Verified 06/24/21 10:11) made me feel really sick Corticosteroids (Glucocorticoids) Adverse Reaction (Verified 06/24/21 10:11) Other INDUCED MYOPATHY oxycodone HCl [From Percocet] Adverse Reaction (Verified 06/24/21 10:11) Vomiting Current Medications Generic Name Dose Route Start Last Admin Trade Name Freq PRN Reason Stop Dose Admin Acetaminophen 1,000 mg 06/26/21 22:00 06/29/21 13:12 Acetaminophen 500 Mg Tablet PO 1,000 mg Q8 MIHAI Administration Albuterol Sulfate 2.5 mg 06/26/21 15:45 06/28/21 01:12 Albuterol 2.5 Mg/3 Ml Vial.Neb. INHALATION 2.5 mg Q4H PRN PRN Administration Wheezing Albuterol Sulfate 2.5 mg 06/27/21 09:00 06/29/21 15:09 Albuterol 2.5 Mg/3 Ml Vial.Neb. INHALATION 2.5 mg Q4HWA.RT MIHAI Administration Apixaban 5 mg 06/26/21 18:00 06/29/21 07:02 Apixaban 5 Mg Tablet PO 5 mg BID MIHAI Administration Atorvastatin Calcium 10 mg 06/26/21 22:00 06/28/21 20:27 Atorvastatin Calcium 10 Mg Tablet PO 10 mg QHS MIHAI Administration Bisacodyl 10 mg 06/26/21 15:52 Bisacodyl 5 Mg Tablet PO DAILY PRN Constipation Calamine/Phenol 1 applic 06/26/21 18:00 06/29/21 07:03 Menthol/Lanolin/Calamine/Znox 113 Gm Tube TOPICAL 1 applic BID MIHAI Administration Protocol Cholecalciferol 50 mcg 06/27/21 06:00 06/29/21 07:02 Cholecalciferol (Vit D3) 25 Mcg Tablet (1,000 Units) PO 50 mcg DAILY MIHAI Administration Diltiazem HCl 180 mg 06/27/21 06:00 06/29/21 07:01 Diltiazem Cd 180 Mg Capsule PO 180 mg DAILY MIHAI Administration Doxycycline Monohydrate 100 mg 06/26/21 18:00 06/29/21 07:02 Doxycycline 100 Mg Capsule PO 100 mg BID MIHAI Administration Famotidine 40 mg 06/26/21 22:00 06/28/21 20:27 Famotidine 20 Mg Tablet PO 40 mg QHS MIHAI Administration Ferrous Sulfate 325 mg 06/27/21 12:00 06/29/21 11:25 Ferrous Sulfate 325 Mg Tablet PO 325 mg Q48H MIHAI Administration Flecainide Acetate 50 mg 06/26/21 18:00 06/29/21 07:02 Flecainide 100 Mg Tablet PO 50 mg BID MIHAI Administration Furosemide 40 mg 06/26/21 18:00 06/29/21 07:02 Furosemide 40 Mg Tablet PO 40 mg BID MIHAI Administration Gabapentin 100 mg 06/29/21 08:00 06/29/21 09:13 Gabapentin 100 Mg Capsule PO 100 mg DAILY MIHAI Administration Guaifenesin 1,200 mg 06/26/21 18:00 06/29/21 07:51 Guaifenesin 1,200 Mg Tablet PO 1,200 mg BID [facility] Administration Ipratropium [place] 2 spray 06/26/21 16:07 Ipratropium [place] 0.06% Nasal [place] NASAL BID PRN CONGESTION Lactobacillus Acidophilus 1 tablet 06/27/21 06:00 06/29/21 07:02 Lactobacillus Acidophilus PO 1 tablet DAILY [facility] Administration Levothyroxine Sodium 25 mcg 06/27/21 06:00 06/29/21 07:02 Levothyroxine 25 Mcg Tablet PO 25 mcg DAILY@0600 MIHAI Administration Lidocaine 1 patch 06/29/21 10:00 06/29/21 09:14 Lidocaine 5% Patch TOPICAL 1 patch DAILY@1000 MIHAI Administration Protocol Montelukast Sodium 10 mg 06/26/21 22:00 06/28/21 20:27 Montelukast 10 Mg Tablet PO 10 mg QHS MIHAI Administration Nutritional Formula (Lactose Free) 120 ml 06/26/21 22:00 06/29/21 11:28 Ensure Enlive 120 Ml Liquid PO 120 ml 4X/DAY MIHAI Administration Nystatin 1 applic 06/26/21 18:00 06/29/21 07:03 Nystatin Powder 15gm Bottle TOPICAL 1 applic BID [facility] Administration Protocol Pantoprazole Sodium 40 mg 06/27/21 06:00 06/29/21 07:03 Pantoprazole Sodium 40 Mg Tablet PO 40 mg DAILY MIHAI Administration Potassium Chloride 20 meq 06/26/21 17:00 06/29/21 07:53 Potassium Chloride Oral Tablet 20 Meq PO 20 meq BIDCM MIHAI Administration Fluticasone/Salmeterol 1 puff 06/26/21 18:00 06/29/21 07:03 Fluticasone/Salmeterol 232-14 Inhaler INHALATION 1 puff Q12 MIHAI Administration Senna/Docusate Sodium 2 tablet 06/26/21 18:00 06/29/21 07:03 Senna/Docusate Sodium 1 Tablet PO 2 tablet BID MIHAI Administration Sodium Chloride 10 - 40 ml 06/26/21 15:48 0.9% Saline Lock 10 Ml Syringe IV UD PRN SALINE FLUSH Tramadol HCl 100 mg 06/26/21 15:53 06/29/21 09:12 Tramadol 50 Mg Tablet PO 100 mg Q6H PRN PRN Administration Pain Score 4-10 Tuberculin PPD 0.1 ml 07/04/21 10:00 Tuberculin,Purif.Prot.Deriv. 50 Tu/Ml Vial ID 07/04/21 10:01 X1 ONE Problem List (Last Reviewed 06/26/21 @ 15:[address] Jose Angel Kaur MD) Heart failure with preserved ejection fraction (Acute) Chronic kidney disease, stage 3a (Chronic) Bronchiectasis (Acute) Asthma (Acute) Pulmonary embolism (Acute) Diabetes mellitus (Acute) Atrial fibrillation (Acute) Hypertension (Chronic) Osteoarthritis of left hip (Acute) Debility (Acute) S/P total left hip arthroplasty (Acute) Vital Signs Temp Pulse Resp BP Pulse Ox 97.3 F L 79 20 H 114/65 97 06/29/21 14:35 06/29/21 15:09 06/29/21 15:09 06/29/21 14:35 06/29/21 14:35 Oxygen Delivery Method Room Air Weight: 109.458 kg Body Mass Index (BMI) 45.6 Sodium 141 mmol/L (136-145) 06/27/21 06:23 Potassium 3.6 mmol/L (3.5-5.1) 06/27/21 06:23 Chloride 109 mmol/L (98-107) H 06/27/21 06:23 Carbon Dioxide 26.0 mmol/L (21.0-32.0) 06/27/21 06:23 Anion Gap 6 (5-15) 06/27/21 06:23 BUN 25 mg/dL (7-18) H 06/27/21 06:23 Creatinine 0.91 mg/dL (0.55-1.02) 06/27/21 06:23 Est GFR (MDRD) Af Amer 79 mL/min (>60) 06/27/21 06:23 Est GFR (MDRD) Non-Af 65 mL/min (>60) 06/27/21 06:23 BUN/Creatinine Ratio 27.4 RATIO (10-20) H 06/27/21 06:23 Glucose 110 mg/dL (74-106) H 06/27/21 06:23 Assessment/Plan: 1. Pain:Tylenol 1000mg PO Q8, Lidocaine Patch topically Daily, Tramadol 100mg PO Q6h Pain 4-10. Please continue to monitor for S/S increased/decreased pain, local site irrigation with patch usage, S/S oversedation. -The patient has used on average 4 doses per 24hr period. Please consider scheduling medication as patient has been using it on almost a scheduled basis. 2. Bowel Regimen: Senna/Docusate 2 tab PO BID, Dulcolax 10mg PO Daily PRN. Please continue to monitor for increased/decreased constipation and/or diarrhea. *3. GERD: Famotidine 40mg PO QHS, Protonix 40mg PO daily. Please continue to monitor for S/S GERD improvement/flare-ups. May also encourage non-pharmacologic therapies to help minimize GERD flare-ups. 4. CHF/Atrial fibrillation/ HLD: Eliquis 5mg PO BID, Lipitor 10mg PO QHS, Diltiazem 180mg PO Daily, Flecainide 50mg PO BID, Lasix 40mg PO BID. Please continue to monitor BP (last 114/65), pulse (last 79), I/O, electrolytes (last K = 3.6), H/H, S/S bleeding/bruising. 5. Hypothyroidism: Synthroid 25mcg PO Daily. Please continue to monitor thyroid function as clinically indicated. *6. Asthma/congestion: Albuterol inhalation every 4hrs and Q2h PRN, Airduo 1 puff INH Q12h, Singulair 10mg PO QHS, Mucinex 1200mg PO BID. Please continue to monitor HR, SOB, wheezing, S/S exacerbation. 7. Allergic Rhinitis: Atrovent 2 sprays nasal BID PRN. Please continue to monitor for medication effectiveness. Please monitor PRN use, as duration of therapy should not exceed 3 weeks d/t risk of rebound congestion. 8. Hypokalemia: KCl 20mEq PO BIDCM. Please continue to monitor potassium levels (last 3.6 on 06/27), S/S GI upset. 9. Iron Deficiency Anemia: Ferrous sulfate 325mg PO Q48h. Please continue to monitor iron studies, H/H as clinically indicated. *10. Post-op infection prevention: Doxycycline 100mg PO BID x10 days. Please continue to monitor for any sign of infection. Make sure to administer at least 2 hours prior to iron administration due to drug interaction between the two, thank you. 11.General Wellness: Cholecalciferol 50mcg PO Daily, Acidophilus 1 tab PO Daily. Please continue to monitor labs as clinically indicated. Psychotropic Medications: None Medication Irregularities/ Issues 1. The patient is on both Protonix and Pepcid for treatment of GERD (duplicate therapy). Please evaluate if patient is able to be weaned off of one agent. Can Add Non-pharmacologic treatments in addition to PRN Tums use if clinically appropriate to wean patient, thank you 2. The patient is on both scheduled albuterol inhalations and Airduo. This is a therapeutic duplication. Please evaluate to see if one of these medications can be discontinued, thank you. Date of Note:: 06/29/21
[2021-06-29] MEDS: Atorvastatin Calcium 10 MG Tablet PO (20:55)
[2021-06-29] MEDS: Famotidine 20 MG Tablet 40 MG PO (20:56)
[2021-06-29] MEDS: Montelukast 10 MG Tablet PO (20:57)
--- NOTE | 2021-06-29 21:43 | NURSING ---
Patient running low grade temp, coughing up some yellow sputum. Updated Dr. Kaur, verbal order to do sputum gram stain w/ culture and covid swab.
[2021-06-30 00:54] VITALS: BP 113/71; PULSE 87; RESP 20; TEMP 37.9; O2SAT 97
[2021-06-30] MEDS: Pantoprazole Sodium 40 MG Tablet PO (05:57)
[2021-06-30] MEDS: Fluticasone/Salmeterol 232-14 Inhaler 1 PUFF INHALATION ×2 (05:57→17:23)
[2021-06-30] MEDS: dilTIAZem CD 180 MG Capsule PO (05:58)
[2021-06-30] MEDS: guaiFENesin 1,200 MG Tablet 1200 MG PO ×2 (05:58→17:26)
[2021-06-30] MEDS: Senna/Docusate Sodium 1 Tablet 2 TABLET PO (05:59)
[2021-06-30] MEDS: Levothyroxine 25 MCG TABLET PO (05:59)
[2021-06-30] MEDS: Doxycycline 100 MG CAPSULE PO ×2 (05:59→17:25)
[2021-06-30] MEDS: APIXABAN 5 MG TABLET PO ×2 (06:00→17:25)
[2021-06-30] MEDS: Furosemide 40 MG Tablet PO ×2 (06:00→17:26)
[2021-06-30] MEDS: Flecainide 100 MG Tablet 50 MG PO ×2 (06:01→17:26)
[2021-06-30] MEDS: Acetaminophen 500 MG Tablet 1000 MG PO ×3 (06:02→19:54)
[2021-06-30] MEDS: Cholecalciferol (VIT D3) 25 MCG TABLET (1,000 UNITS) 50 MCG PO (06:02)
[2021-06-30] MEDS: traMADol 50 MG Tablet 100 MG PO ×3 (06:08→19:53)
[2021-06-30] MEDS: Gabapentin 100 MG Capsule PO (06:08)
[2021-06-30] MEDS: Nystatin Powder 15gm Bottle 1 APPLIC TOPICAL ×2 (06:09→17:28)
[2021-06-30] MEDS: Menthol/Lanolin/Calamine/Znox 113 GM Tube 1 APPLIC TOPICAL ×2 (06:11→17:28)
[2021-06-30 06:52] VITALS: PULSE 84; RESP 17; O2SAT 98
[2021-06-30] MEDS: Potassium Chloride Oral Tablet 20 MEQ PO ×2 (08:34→17:25)
[2021-06-30] MEDS: Lidocaine 5% Patch 1 PATCH TOPICAL (09:02)
[2021-06-30 11:12] VITALS: PULSE 82; RESP 20
[2021-06-30 14:08] VITALS: PULSE 85; RESP 18
[2021-06-30 16:00] VITALS: BP 133/68; PULSE 97; RESP 16; TEMP 36.6; O2SAT 96
[2021-06-30 19:53] VITALS: PULSE 89; RESP 18
[2021-06-30] MEDS: Montelukast 10 MG Tablet PO (19:55)
[2021-06-30] MEDS: Famotidine 20 MG Tablet 40 MG PO (19:55)
[2021-06-30] MEDS: Atorvastatin Calcium 10 MG Tablet PO (19:56)
[2021-07-01] MEDS: traMADol 50 MG Tablet 100 MG PO ×2 (04:00→11:40)
[2021-07-01] MEDS: Acetaminophen 500 MG Tablet 1000 MG PO ×3 (04:02→21:07)
[2021-07-01] MEDS: Fluticasone/Salmeterol 232-14 Inhaler 1 PUFF INHALATION ×2 (04:02→18:02)
[2021-07-01] MEDS: dilTIAZem CD 180 MG Capsule PO (04:03)
[2021-07-01] MEDS: Doxycycline 100 MG CAPSULE PO ×2 (04:03→18:01)
[2021-07-01] MEDS: Furosemide 40 MG Tablet PO ×2 (04:03→18:02)
[2021-07-01] MEDS: APIXABAN 5 MG TABLET PO ×2 (04:03→18:02)
[2021-07-01] MEDS: Senna/Docusate Sodium 1 Tablet 2 TABLET PO ×2 (04:04→18:05)
[2021-07-01] MEDS: Levothyroxine 25 MCG TABLET PO (04:04)
[2021-07-01] MEDS: Flecainide 100 MG Tablet 50 MG PO ×2 (04:04→18:05)
[2021-07-01] MEDS: Pantoprazole Sodium 40 MG Tablet PO (04:04)
[2021-07-01] MEDS: Nystatin Powder 15gm Bottle 1 APPLIC TOPICAL ×2 (04:05→21:11)
[2021-07-01] MEDS: Menthol/Lanolin/Calamine/Znox 113 GM Tube 1 APPLIC TOPICAL ×2 (04:05→18:00)
[2021-07-01] MEDS: guaiFENesin 1,200 MG Tablet 1200 MG PO ×2 (04:05→18:02)
[2021-07-01] MEDS: Cholecalciferol (VIT D3) 25 MCG TABLET (1,000 UNITS) 50 MCG PO (04:06)
[2021-07-01] MEDS: Gabapentin 100 MG Capsule PO ×2 (04:08→18:08)
[2021-07-01 07:11] VITALS: PULSE 84; RESP 17; O2SAT 98
[2021-07-01] MEDS: Albuterol 2.5 MG/3 ML VIAL.NEB. INHALATION ×4 (07:33→19:40)
[2021-07-01] MEDS: Potassium Chloride Oral Tablet 20 MEQ PO ×2 (08:55→18:01)
[2021-07-01] MEDS: Lidocaine 5% Patch 1 PATCH TOPICAL (09:00)
[2021-07-01 11:17] VITALS: PULSE 84; RESP 18
[2021-07-01] MEDS: Ferrous Sulfate 325 MG Tablet PO (11:40)
--- NOTE | 2021-07-01 13:03 | CASEMGMT ---
Social Work IDT met with patient for care plan meeting. Discussed patient's progress in PT/OT and nursing. Explained Medicare benefit. Encouraged to contact secondary insurance to ensure copay coverage. TCU is not in network with [facility] for any coverage. Pt has ramp to enter, but still one step to navigate. Currently pt cannot complete steps. Pt cares for special needs dtr at home. The goal is to return home at [facility]. Provided resources for grab bars/handrails. Pt concerned about transport to outpatient therapy. Educated to [facility] first at [place] then can use [facility] free to [facility] since she lives in [place]. Provided transportation resources also. Pt to decide when she is ready to [place]. SW to continue to follow. MARYURI KuhnW
[2021-07-01 15:00] VITALS: PULSE 93; RESP 17
[2021-07-01 16:00] VITALS: BP 142/67; PULSE 92; RESP 18; TEMP 37.9; O2SAT 91
--- NOTE | 2021-07-01 17:08 | NURSING ---
PT HAS A TEMP OF 100.2 ORAL AND IS GRAM POSITIVE FOR PSEUDOMONAS IN SPUTUM. DR NEVILLE WANTS DR. MOSQUEDA CONSULTED DUE TO PT ALSO HAS HISTORY OF MRSA. RN AWARE
[2021-07-01 18:30] VITALS: PULSE 92; RESP 18; O2SAT 91
[2021-07-01 19:40] VITALS: PULSE 89; RESP 20
[2021-07-01] MEDS: Atorvastatin Calcium 10 MG Tablet PO (21:07)
[2021-07-01] MEDS: Montelukast 10 MG Tablet PO (21:07)
[2021-07-01] MEDS: Famotidine 20 MG Tablet 40 MG PO (21:07)
[2021-07-02] MEDS: traMADol 50 MG Tablet 100 MG PO ×2 (06:28→17:17)
[2021-07-02] MEDS: Cholecalciferol (VIT D3) 25 MCG TABLET (1,000 UNITS) 50 MCG PO (06:29)
[2021-07-02] MEDS: APIXABAN 5 MG TABLET PO ×2 (06:29→17:10)
[2021-07-02] MEDS: Flecainide 100 MG Tablet 50 MG PO ×2 (06:29→17:13)
[2021-07-02] MEDS: Doxycycline 100 MG CAPSULE PO ×2 (06:29→17:10)
[2021-07-02] MEDS: Senna/Docusate Sodium 1 Tablet 2 TABLET PO (06:29)
[2021-07-02] MEDS: guaiFENesin 1,200 MG Tablet 1200 MG PO ×2 (06:29→17:11)
[2021-07-02] MEDS: Pantoprazole Sodium 40 MG Tablet PO (06:29)
[2021-07-02] MEDS: Furosemide 40 MG Tablet PO ×2 (06:29→17:14)
[2021-07-02] MEDS: Levothyroxine 25 MCG TABLET PO (06:30)
[2021-07-02] MEDS: Acetaminophen 500 MG Tablet 1000 MG PO ×3 (06:31→22:34)
[2021-07-02] MEDS: Fluticasone/Salmeterol 232-14 Inhaler 1 PUFF INHALATION ×2 (06:31→17:10)
[2021-07-02] MEDS: Nystatin Powder 15gm Bottle 1 APPLIC TOPICAL ×2 (06:32→17:11)
[2021-07-02] MEDS: dilTIAZem CD 180 MG Capsule PO (06:33)
[2021-07-02] MEDS: Menthol/Lanolin/Calamine/Znox 113 GM Tube 1 APPLIC TOPICAL ×2 (06:33→17:10)
[2021-07-02] MEDS: Gabapentin 100 MG Capsule PO ×2 (06:39→17:17)
[2021-07-02 07:30] VITALS: PULSE 92; RESP 18; O2SAT 98
[2021-07-02] MEDS: Albuterol 2.5 MG/3 ML VIAL.NEB. INHALATION ×2 (07:30→15:45)
[2021-07-02] MEDS: Potassium Chloride Oral Tablet 20 MEQ PO ×2 (08:16→17:09)
[2021-07-02 08:32] VITALS: BP 119/56; PULSE 69
--- NOTE | 2021-07-02 10:49 | CON.PCM.ID_ITS ---
Assessment & Plan Assessment/Plan (1) S/P hip replacement: (2) Pneumonia due to Pseudomonas: PLAN: Will treat for suspected developing pneumonia with iv cefepime. Has tolerated omnicef and augmentin in the past. Will follow, thank you HPI Consult Data Date of Consult: 07/02/21 HPI Narrative HPI Narrative: LAURA SERRANO, is a 66 F who bronchiectasis, pseudomonas colonization, had recent course of levaquin for a flare which did help symptoms. Taken to OR 06/24/[address] Reynoso for L hip replacement. Had fever post-op. Now in TCU, still low grade temp, increased cough and yellow sputum. Has been on doxy since replacement done. Full ROS performed and neg except as noted above. FOR[facility]LY [facility] Medical History Abnormal chest CT Acute bronchiolitis Acute respiratory failure ALEXYS (acute kidney injury) Allergic rhinitis Anemia Anxiety Aspiration into airway Asthma Atrial fibrillation with rapid ventricular response Atrial tachycardia Back pain Benign essential HTN Bronchiectasis Bronchiectasis with (acute) exacerbation Cardiology follow-up encounter Cellulitis of right lower extremity Chronic diastolic heart failure Chronic respiratory failure Coarse tremors COLD (chronic obstructive lung disease) Congestive heart failure (CHF) Diabetes Diabetes mellitus DVT (deep venous thrombosis) Easy bruising Former smoker Gastroesophageal reflux disease HCAP (healthcare-associated pneumonia) High cholesterol History of DVT (deep vein thrombosis) History of echocardiogram History of edema 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 History of renal disease History of stress test Hx pulmonary embolism Hyperlipidemia Hypertension Hypothyroidism Hypoxemia Injury of back Insomnia Kidney disease Lung nodule Migraine headache Morbid obesity MRSA pneumonia Obesity GAGAN (obstructive sleep apnea) Pain of left hip Paroxysmal atrial fibrillation Paroxysmal atrial tachycardia Pneumonia Precordial chest pain Pulmonary embolism PVD (peripheral vascular disease) Right foot pain Severe sepsis Shortness of breath on exertion Steroid myopathy Tachycardia Thrush, oral Umbilical hernia Venous thromboembolism (VTE) Walker as ambulation aid Weakness Wears glasses Home Medications levothyroxine 25 mcg tablet 25 mcg PO DAILY@0600 01/04/20 [History Last Taken 06/24/21] albuterol sulfate 2.5 mg INHALATION Q4H PRN #180 vial 03/17/20 [Rx Last Taken 06/23/21] famotidine 40 mg tablet 40 mg PO QHS 04/02/20 [History Last Taken 06/23/21] cholecalciferol (vitamin D3) 50 mcg PO DAILY 09/19/20 [History Last Taken 06/23/21] furosemide [Lasix] 40 mg PO BID 09/19/20 [History Last Taken 06/23/21] esomeprazole magnesium 40 mg capsule,delayed release 40 mg PO DAILY cap 10/13/20 [History Last Taken 06/24/21] potassium chloride 20 mEq tablet,extended release(part/cryst) 20 meq PO BID tab 10/13/20 [History Last Taken 06/23/21] flecainide 50 mg tablet 50 mg PO BID #180 tab 02/19/21 [Rx Last Taken 06/23/21] lactobacillus combination no.8 3 billion cell capsule 1 cell PO DAILY 03/25/21 [History Last Taken 06/23/21] Eliquis 5 mg PO BID 04/01/21 [History Last Taken 05/21/21] diltiazem HCl [Cardizem CD] 180 mg PO DAILY 04/01/21 [History Last Taken 06/24/21] montelukast [Singulair] 10 mg PO QHS 04/01/21 [History Last Taken 06/23/21] Advair HFA 2 puff INHALATION BID 06/26/21 [History Last Taken Unknown] Mucus Relief ER 1,200 mg PO BID 06/26/21 [History Last Taken Unknown] acetaminophen 1,000 mg PO Q8 06/26/21 [History Last Taken Unknown] atorvastatin [Lipitor] 10 mg PO QHS 06/26/21 [History Last Taken Unknown] doxycycline hyclate 100 mg PO BID 06/26/21 [History Last Taken Unknown] ferrous sulfate 325 mg PO QODAY 06/26/21 [History Last Taken Unknown] ipratropium bromide 2 spray INTRANASAL BID 06/26/21 [History Last Taken Unknown] nut.tx.comp. immune systm,reg [Ensure Surgery] 237 ml PO TIDCM 06/26/21 [History Last Taken Unknown] sennosides-docusate sodium [Stool Softener-Stimulant Laxat] 2 tab PO BID 06/26/21 [History Last Taken Unknown] tramadol 50 - 100 mg PO Q6H PRN PRN 7 Days #60 tab 06/26/21 [Rx Last Taken Unknown] Allergy/AdvReac Type Severity Reaction Status Date / Time adhesive Allergy SKIN Verified 06/24/21 10:11 TEARS. PAPER TAPE OK azithromycin [From Zithromax] Allergy Rash Verified 06/24/21 10:11 cefuroxime sodium Allergy Rash Verified 06/24/21 10:11 [From Zinacef] clindamycin Allergy Hives Verified 06/24/21 10:11 nitrofurantoin Allergy Rash Verified 06/24/21 10:11 macrocrystalline [From Macrodantin] Sulfa (Sulfonamide Allergy Rash Verified 06/24/21 10:11 Antibiotics) atenolol AdvReac Severe Peripheal Verified 06/24/21 10:11 edema & cough metoprolol [From Toprol XL] AdvReac Severe Peripheral Verified 06/24/21 10:11 edema & cough duloxetine [From Cymbalta] AdvReac Intermediate made me Verified 06/24/21 10:11 feel really sick Corticosteroids AdvReac Other Verified 06/24/21 10:11 (Glucocorticoids) oxycodone HCl [From Percocet] AdvReac Vomiting Verified 06/24/21 10:11 Family History Mother Hypertension Diabetes Heart disease Pulmonary embolism Father Perforated ulcer Respiratory failure Sister Asthma Hypertension Surgical History H/O section H/O foot surgery H/O hernia repair H/O shoulder surgery H/O: hysterectomy History of appendectomy History of cardioversion (~12/2016) History of left heart catheterization Hx of vein stripping S/P hysterectomy Social History (Updated 06/26/21 @ 15:[address] Jose Angel Kaur MD) household members: none Smoking Status: Former smoker quit date: 02/14/75 pack-years: 3 second hand exposure: No alcohol intake: never substance use type: does not use caffeine: No what type of physical activity do you participate in: none Physical Exam Const alert, oriented x3 and no apparent distress General Appearance: cooperative Exam Limitations: no limitations HEENT normocephalic and head/scalp atraumatic Eyes PERRL and EOMs intact bilaterally Neck supple and No nodes Resp Auscultation: diminished lung sounds Cardio regular rate and regular rhythm GI soft to palpation, non-tender and non-distended Skin no rashes or lesions noted Neuro CN's II-XII intact bilaterally Lab / Micro Data Result Diagrams: 06/29/21 05:43 06/27/21 06:23 Micro: Microbiology 06/29/21 22:00 Sputum, Expectorated/Coughed Gram Stain - Final 06/29/21 22:00 Sputum, Expectorated/Coughed Respiratory Culture - Final Pseudomonas aeroginosa
[2021-07-02] MEDS: 0.9% Saline Lock 10 ML Syringe IV ×2 (11:38→12:50)
[2021-07-02] MEDS: Lidocaine 5% Patch 1 PATCH TOPICAL (11:39)
[2021-07-02 15:32] VITALS: BP 128/68; PULSE 94; RESP 17; TEMP 36.9; O2SAT 97
[2021-07-02 15:45] VITALS: PULSE 86; RESP 18
[2021-07-02] MEDS: Famotidine 20 MG Tablet 40 MG PO (22:33)
[2021-07-02] MEDS: Atorvastatin Calcium 10 MG Tablet PO (22:33)
[2021-07-02] MEDS: Montelukast 10 MG Tablet PO (22:33)
[2021-07-03] MEDS: Fluticasone/Salmeterol 232-14 Inhaler 1 PUFF INHALATION ×2 (06:30→16:48)
[2021-07-03] MEDS: Acetaminophen 500 MG Tablet 1000 MG PO ×3 (06:30→23:04)
[2021-07-03] MEDS: Furosemide 40 MG Tablet PO (06:31)
[2021-07-03] MEDS: Flecainide 100 MG Tablet 50 MG PO ×2 (06:31→16:54)
[2021-07-03] MEDS: APIXABAN 5 MG TABLET PO ×2 (06:31→16:52)
[2021-07-03] MEDS: Pantoprazole Sodium 40 MG Tablet PO (06:31)
[2021-07-03] MEDS: Doxycycline 100 MG CAPSULE PO ×2 (06:31→16:53)
[2021-07-03] MEDS: Levothyroxine 25 MCG TABLET PO (06:31)
[2021-07-03] MEDS: guaiFENesin 1,200 MG Tablet 1200 MG PO (06:31)
[2021-07-03] MEDS: Menthol/Lanolin/Calamine/Znox 113 GM Tube 1 APPLIC TOPICAL ×2 (06:32→16:49)
[2021-07-03] MEDS: Nystatin Powder 15gm Bottle 1 APPLIC TOPICAL ×2 (06:32→16:49)
[2021-07-03] MEDS: dilTIAZem CD 180 MG Capsule PO (06:32)
[2021-07-03] MEDS: Cholecalciferol (VIT D3) 25 MCG TABLET (1,000 UNITS) 50 MCG PO (06:34)
[2021-07-03] MEDS: traMADol 50 MG Tablet 100 MG PO ×2 (06:45→15:14)
[2021-07-03] MEDS: Gabapentin 100 MG Capsule PO ×2 (06:45→16:57)
[2021-07-03] MEDS: Albuterol 2.5 MG/3 ML VIAL.NEB. INHALATION ×3 (07:27→19:16)
[2021-07-03 07:28] VITALS: PULSE 89; RESP 17; O2SAT 92
[2021-07-03] MEDS: Potassium Chloride Oral Tablet 20 MEQ PO (07:56)
[2021-07-03] MEDS: 0.9% Saline Lock 10 ML Syringe IV ×2 (07:58→13:45)
[2021-07-03] MEDS: proMETHazine 25 MG Tablet PO ×2 (08:38→15:14)
[2021-07-03] MEDS: Lidocaine 5% Patch 1 PATCH TOPICAL (09:46)
--- NOTE | 2021-07-03 10:07 | RAD_ITS ---
EXAM: XR LUMBOSACRAL SPINE, 2 OR 3 VIEWS CLINICAL INDICATION: New onset of pain. TECHNIQUE: Frontal and lateral views of the lumbar spine and sacrum. This report was created using [employer] report [employer] technology. COMPARISON: 07/08/2020. FINDINGS: VERTEBRAE: Moderate levo rotary scoliosis of the lumbar spine. No acute fractures of the lumbar spine. No spondylolisthesis. No significant facet arthropathy. DISC SPACES: Pronounced right-sided L1-L2 degenerative disc space height narrowing with endplate sclerosis. Pronounced right-sided L2-L3 disc space height narrowing with endplate sclerosis. VASCULATURE: Dense vascular calcifications along the abdominal aorta and iliac arteries. GASTROINTESTINAL TRACT: Unremarkable as visualized. Included bowel gas pattern is non-obstructive. RAD/Lumbar Spine 2 or 3 Views IMPRESSION: 1. No acute findings in the lumbar spine. 2. Moderate levo rotary scoliosis of the upper lumbar spine. 3. Degenerative disc space height narrowing with endplate sclerosis at L1-L2 and L2-L3 disc space levels. 4. No interval change when compared to 07/08/2020. Electronically Signed: Fei Bridges MD at 12:13 EDT ,
[2021-07-03 10:30] VITALS: BP 131/60; PULSE 103; RESP 22; TEMP 38.3; O2SAT 94
[2021-07-03 10:44] LABS: Bacteria 0 SEEN /hpf (None Seen); Mucous, Urine 0 SEEN /hpf (<or=2+); Squamous Epithelial Cells - UA 0 SEEN /hpf (5-10); White Blood Cells 0 SEEN /hpf (0-5)
[2021-07-03 10:50] LABS: Color, Urine Yellow (Yellow); Glucose, Dipstick Normal (Normal); Ketone-Dipstick Negative (Negative); Leukocyte Esterase-Dipstick Negative /ul (Negative); Nitrite-Dipstick Negative (Negative); Occult Blood-Urine 10 /ul (Negative); Protein-Dipstick Negative (Negative); Urine Bilirubin Dipstick Negative (Negative); Urine Clarity Clear (Clear); Urine Urobilinogen Normal (Normal)
[2021-07-03 10:59] LABS: Red Blood Cells-Urine 0-5 SEEN /hpf (0-5)
[2021-07-03 11:13] LABS: Absolute Lymphocyte Count 0.31 X10^3/uL (0.83-4.51); Absolute Neutrophil Count 8.6 X10^3/uL (2.0-7.7); Basophil# 0.01 X10^3/uL; Basophil% 0.1 % (0-1); Eosinophil# 0.36 X10^3/uL; Eosinophils% 3.7 % (0-5); Hematocrit 31.5 % (37-47); Hemoglobin 9.3 g/dL (12.0-15.0); Lymphocyte # 0.31 X10^3/ul (0.83-4.51); Lymphocyte % 3.2 % (19-41); Mean Corp Hgb Conc 29.5 g/dL (32-36); Mean Corpuscular Hgb 28.7 pg (27.0-32.0); Mean Corpuscular Volume 97.2 fL (81-99); Mean Platelet Vol. 9.7 fl (6.2-12.0); Monocyte# 0.42 X10^3/uL; Monocyte% 4.3 % (0-10); NRBC Flagged by Analyzer 0 % (0-5); Neutrophil # 8.58 X10^3/uL (2.7-7.7); Neutrophil % 88.1 % (47-70); POSITIVE DIFFERENTIAL YES; Platelet Count 496 K/mm3 (150-450); RBC Distribution Width CV 14.5 % (11.6-14.6); RBC Distribution Width SD 51.6 fl (35.1-43.9); Red Blood Count 3.24 M/mm3 (4.2-5.4); White Blood Count 9.7 K/mm3 (4.4-11.0)
[2021-07-03 11:14] LABS: Differential Indicated SCAN CRITERIA MET
[2021-07-03 11:27] LABS: Anion Gap 8 (5-15); BUN 31 mg/dL (7-18); BUN/Creat Ratio 25.2 RATIO (10-20); Calcium,Total 9.6 mg/dL (8.5-10.1); Chloride 106 mmol/L (98-107); Creatinine, Serum 1.23 mg/dL (0.55-1.02); EST Glomerular Filtration Rate 46 mL/min (>60); Est Glom Filt Rate - Afr Amer 56 mL/min (>60); Estimated Creatinine Clearance 33.49 ml/min; Glucose 131 mg/dL (74-106); Sodium Level 141 mmol/L (136-145)
[2021-07-03 11:36] LABS: Platelet Estimate SLT INC (ADEQ)
[2021-07-03] MEDS: Ferrous Sulfate 325 MG Tablet PO (11:43)
[2021-07-03 11:48] LABS: Lactic Acid 1.8 mmol/L (0.4-1.9)
--- NOTE | 2021-07-03 14:17 | CASEMGMT ---
Social Work BIMS and PHQ-9 completed for MDS assessment. 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
--- NOTE | 2021-07-03 15:37 | NURSING ---
Addendum entered by Juli Lozano 07/03/21 15:51: N.O. STAT CT of LLE without contrast Original Note: Pt visibly shaking this morning, cold, febrile, nausea, and c/o of severe pain from back to LLE and was crying upon assessment. Tachycardic, LLE warm, red, and swollen. Rhonchi and course crackles throughout all lobes still but pt on cefepime for sputum culture and followed by infectious disease. updated and N.O. STAT CBC with diff, BMP, and lactic acid, 2 sets of blood cultures, xray to lumbosacral spine, u/a C&S, STAT Doppler, Oxycodone 10mg PO Q4H PRN for pain rated 6-10, phenergan 25mg PO Q6H prn, Covid 19 swab, and respiratory panel. Pt refusing oxy at this time. Dr. Kaur came in this afternoon and assessed pt with N.O for CTY
[2021-07-03 16:00] VITALS: BP 112/60; PULSE 58; RESP 16; TEMP 37.7; O2SAT 90
[2021-07-03 16:11] VITALS: PULSE 92; RESP 18
--- NOTE | 2021-07-03 17:57 | NURSING ---
Pt and family notified of staff member and another pt testing positive for covid.
[2021-07-03 19:16] VITALS: PULSE 92; RESP 18
[2021-07-03 22:45] VITALS: BP 119/55; PULSE 102; RESP 20; TEMP 39.8; O2SAT 100
[2021-07-03] MEDS: Atorvastatin Calcium 10 MG Tablet PO (23:03)
[2021-07-03] MEDS: Famotidine 20 MG Tablet 40 MG PO (23:04)
[2021-07-03] MEDS: Montelukast 10 MG Tablet PO (23:05)
--- NOTE | 2021-07-03 23:23 | NURSING ---
PT IN BED, C/O FEELING HOT, SHIVERING, TEMP TAKEN ORALLY 103.6, 119/55, 103, 20, 100% ON ROOM AIR. LABS, LACTIC, BLOOD CULTURES, CT HIP, LUMBAR XRAY ALL COMPLETED EARLIER IN THE DAY. PT STATES SHE FEELS LIKE SHE IS SEPTIC. DR NEVILLE CALLED AND NOTIFIED, SENDING THE PT TO ER.
[2021-07-04 03:10] VITALS: BP 97/52; PULSE 92; RESP 16; TEMP 37.8; O2SAT 95
--- NOTE | 2021-07-04 03:29 | NURSING ---
pt back from er, ivf, tylenol, cxray done and negative. labs drawn, wbc 13 from 9 this am. new iv site started in er.
[2021-07-04] MEDS: APIXABAN 5 MG TABLET PO (05:51)
[2021-07-04] MEDS: guaiFENesin 1,200 MG Tablet 1200 MG PO (05:51)
[2021-07-04] MEDS: Acetaminophen 500 MG Tablet 1000 MG PO (05:51)
[2021-07-04] MEDS: Levothyroxine 25 MCG TABLET PO (05:51)
[2021-07-04] MEDS: dilTIAZem CD 180 MG Capsule PO (05:52)
[2021-07-04] MEDS: Pantoprazole Sodium 40 MG Tablet PO (05:52)
[2021-07-04] MEDS: Furosemide 40 MG Tablet PO (05:52)
[2021-07-04] MEDS: Doxycycline 100 MG CAPSULE PO (05:52)
[2021-07-04] MEDS: Gabapentin 100 MG Capsule PO (05:52)
[2021-07-04] MEDS: Nystatin Powder 15gm Bottle 1 APPLIC TOPICAL (05:53)
[2021-07-04] MEDS: Fluticasone/Salmeterol 232-14 Inhaler 1 PUFF INHALATION (05:53)
[2021-07-04] MEDS: Cholecalciferol (VIT D3) 25 MCG TABLET (1,000 UNITS) 50 MCG PO (05:54)
[2021-07-04] MEDS: Flecainide 100 MG Tablet 50 MG PO (05:54)
[2021-07-04 06:00] VITALS: BP 118/58; PULSE 105; RESP 20; TEMP 38.4; O2SAT 94
[2021-07-04] MEDS: Menthol/Lanolin/Calamine/Znox 113 GM Tube 1 APPLIC TOPICAL (06:02)
--- NOTE | 2021-07-04 06:09 | NURSING ---
pt temp 101.2, pt chilling and miserable, tylenol and antibiotics given. insulation cupola charger notified.
[2021-07-04 06:52] LABS: Absolute Lymphocyte Count 0.84 X10^3/uL (0.83-4.51); Absolute Neutrophil Count 11.3 X10^3/uL (2.0-7.7); Basophil# 0.02 X10^3/uL; Basophil% 0.1 % (0-1); Eosinophil# 0.49 X10^3/uL; Eosinophils% 3.6 % (0-5); Hematocrit 33.3 % (37-47); Hemoglobin 9.7 g/dL (12.0-15.0); Lymphocyte # 0.84 X10^3/ul (0.83-4.51); Lymphocyte % 6.1 % (19-41); Mean Corp Hgb Conc 29.1 g/dL (32-36); Mean Corpuscular Hgb 28.4 pg (27.0-32.0); Mean Corpuscular Volume 97.7 fL (81-99); Mean Platelet Vol. 9.9 fl (6.2-12.0); Monocyte# 0.91 X10^3/uL; Monocyte% 6.6 % (0-10); NRBC Flagged by Analyzer 0 % (0-5); Neutrophil # 11.34 X10^3/uL (2.7-7.7); Neutrophil % 82.5 % (47-70); Platelet Count 528 K/mm3 (150-450); RBC Distribution Width CV 14.7 % (11.6-14.6); RBC Distribution Width SD 52.6 fl (35.1-43.9); Red Blood Count 3.41 M/mm3 (4.2-5.4); White Blood Count 13.8 K/mm3 (4.4-11.0)
[2021-07-04 07:17] VITALS: TEMP 39
--- NOTE | 2021-07-04 07:35 | NURSING ---
dr sahni notified of pt c/o feeling miserable, increased WBC's and continued elevated temp.
--- NOTE | 2021-07-04 07:37 | NURSING ---
report called to MARIO Yin in ER.
[2021-07-04 07:39] LABS: Anion Gap 7 (5-15); BUN 30 mg/dL (7-18); BUN/Creat Ratio 22.1 RATIO (10-20); Calcium,Total 9.1 mg/dL (8.5-10.1); Chloride 108 mmol/L (98-107); Creatinine, Serum 1.36 mg/dL (0.55-1.02); EST Glomerular Filtration Rate 41 mL/min (>60); Est Glom Filt Rate - Afr Amer 50 mL/min (>60); Estimated Creatinine Clearance 30.29 ml/min; Glucose 103 mg/dL (74-106); Potassium 3.8 mmol/L (3.5-5.1); Sodium Level 139 mmol/L (136-145)
--- NOTE | 2021-07-04 09:52 | NURSING ---
pt admitted to acute side
--- NOTE | 2021-07-04 16:51 | DS.PCM_ITS ---
Providers Date of Admission: 06/26/21 Primary Care Physician: Dr. Ervin Donnelly MD Consultations 07/01/21 17:11 Consult: Infectious Disease Routine Consulting Provider: Peter Orta Reason for Consult: Temp and gram positive pseudomonas in sputum, hx of MRSA EMERGENT Consult: No MD Notified: Yes Date Notified: 07/01/21 Time Notified: 17:11 Method of Notification: in person Reason For Visit: LEFT ANTERIOR TOTAL HIP Diagnosis Discharge Diagnosis (1) S/P hip replacement: Code(s): Z96.649 - Presence of unspecified artificial hip joint (2) Pneumonia due to Pseudomonas: Status: Acute Code(s): J15.1 - Pneumonia due to Pseudomonas Medications at Discharge Home Medications levothyroxine 25 mcg tablet 25 mcg PO DAILY@0600 01/04/20 albuterol sulfate 2.5 mg INHALATION Q4H PRN #180 vial 03/17/20 famotidine 40 mg tablet 40 mg PO QHS 04/02/20 cholecalciferol (vitamin D3) 50 mcg PO DAILY 09/19/20 furosemide [Lasix] 40 mg PO BID 09/19/20 esomeprazole magnesium 40 mg capsule,delayed release 40 mg PO DAILY cap 10/13/20 potassium chloride 20 mEq tablet,extended release(part/cryst) 20 meq PO BID tab 10/13/20 flecainide 50 mg tablet 50 mg PO BID #180 tab 02/19/21 lactobacillus combination no.8 3 billion cell capsule 1 cell PO DAILY 03/25/21 Eliquis 5 mg PO BID 04/01/21 diltiazem HCl [Cardizem CD] 180 mg PO DAILY 04/01/21 montelukast [Singulair] 10 mg PO QHS 04/01/21 Advair HFA 2 puff INHALATION BID 06/26/21 Mucus Relief ER 1,200 mg PO BID 06/26/21 acetaminophen 1,000 mg PO Q8 06/26/21 atorvastatin [Lipitor] 10 mg PO QHS 06/26/21 doxycycline hyclate 100 mg PO BID 06/26/21 ferrous sulfate 325 mg PO QODAY 06/26/21 ipratropium bromide 2 spray INTRANASAL BID 06/26/21 nut.tx.comp. immune systm,reg [Ensure Surgery] 237 ml PO TIDCM 06/26/21 sennosides-docusate sodium [Stool Softener-Stimulant Laxat] 2 tab PO BID 06/26/21 tramadol 50 - 100 mg PO Q6H PRN PRN 7 Days #60 tab 06/26/21 Hospital Course Operations total hip replacement (Left.) Procedures None Summary of Care Provided Minutes Spent on Discharge: 35 Hospital Course: 66 year old female with below past medical history hospitalized for left hip replacement 06/24/[address] Reynoso, complicated by fever, cough, admitted to TCU with debility, here for rehabilitation, strengthening, prior to discharge home alone. 07/02/2021 Resident sputum grew Pseudomonas Aeruginosa, Dr. Orta recommended Cefepime IV. 07/03/2021 Resident had fever, chills, rigors. Septic workup was unremarkable. 07/04/2021 Fever, chills, rigors persist. Resident not stable to stay on TCU. 07/04/2021 Discharge to [facility] Emergency Department for evaluation, admission to hospital for fever unknown origin. Physical Exam Const alert General Appearance: cooperative HEENT normocephalic Eyes PERRL and EOMs intact bilaterally Neck supple, no JVD and no carotid bruits Resp normal respiratory effort, normal air movement and clear to auscultation bilaterally Cardio regular rate and regular rhythm GI normal to inspection, nondistended, normoactive bowel sounds, non-tender and non-distended Extremity normal capillary refill General Extremity: Negative for edema Skin no rashes or lesions noted Skin Narrative: Left hip incision with erythema, tenderness. General Skin Exam: no breakdown Psych affect normal Appearance: appropriate Weight / BMI Weight Weight: 105.46 kg Body Mass Index (BMI) 45.6 ABG / Lab / Microbiology Data Result Diagrams: 07/04/21 06:15 07/04/21 06:15 Laboratory: Laboratory Results - last 24 hr 07/04/21 06:15: WBC 13.8 H, RBC 3.41 L, Hgb 9.7 L, Hct 33.3 L, MCV 97.7, MCH 28.4, MCHC 29.1 L, RDW Std Deviation 52.6 H, RDW Coeff of Lanre 14.7 H, Plt Count 528 H, MPV 9.9, Immature Gran % (Auto) 1.100 H, Neut % (Auto) 82.5 H, Lymph % (Auto) 6.1 L, [place] % (Auto) 6.6, Eos % (Auto) 3.6, Baso % (Auto) 0.1, Absolute Neuts (auto) 11.3 H, Absolute Lymphs (auto) 0.84, Nucleated RBC % 0 07/04/21 06:15: Sodium 139, Potassium 3.8, Chloride 108 H, Carbon Dioxide 24.0, Anion Gap 7, BUN 30 H, Creatinine 1.36 H, Estim Creat Clear Calc 30.29, Est GFR (MDRD) Af Amer 50 L, Est GFR (MDRD) Non-Af 41 L, BUN/Creatinine Ratio 22.1 H, Glucose 103, Calcium 9.1 Microbiology: Microbiology 07/03/21 10:30 Urine Catheter - Catheter Urine Culture - Preliminary Culture exhibits no growth. 07/03/21 15:41 Mucosa - Nose Respiratory Panel (PCR) - Final 07/03/21 Unknown Nasal Secretion SARS-CoV-2 Antigen (Rapid) - Final 06/29/21 22:00 Sputum, Expectorated/Coughed Gram Stain - Final 06/29/21 22:00 Sputum, Expectorated/Coughed Respiratory Culture - Final Pseudomonas aeroginosa 06/29/21 23:28 Interface Orders SARS-CoV-2 Antigen (Rapid) - Final D/C Instructions Discharge Diet: No restrictions Discharge Activity: Return to Normal Activity, May Shower and Use Walker Weight Bearing Status: Weight bearing as tolerated Call your doctor if you observe: Fever of 101 or Higher, Inability to urinate, Inability to have a bowel movement, Using more than 1 pad per hour, Shortness of breath, Dizziness, Swelling in the ankles, Chest pain and Uncontrolled pain Additional Instructions: 07/04/2021 Discharge to [facility] Emergency Department for evaluation, admission to hospital for fever unknown origin. Please Follow Up With: Kenton Ardon PA-C Meaningful Use Info Meaningful Use Diagnoses (Choose all that apply): None applicable Discharge Plan Admission Admit Date/Time: 06/26/21 15:27 Primary Reason for Your Visit: Debility. Attending Provider: Jose Angel Kaur Chi Primary Care Provider: Ervin Donnelly Consulting Providers: Peter Orta Instructions Additional Instructions / Restrictions: 07/04/2021 Discharge to [facility] Emergency Department for evaluation, admission to hospital for fever unknown origin. Discharge Orders/Prescriptions Prescriptions: No Action famotidine 40 mg tablet 40 mg PO QHS RF: 0 esomeprazole magnesium [Nexium] 40 mg capsule,delayed release(DR/EC) 40 mg PO DAILY RF: 0 potassium chloride 20 mEq tablet,ER particles/crystals 20 meq PO BID RF: 0 lactobacillus combination no.8 3 billion cell capsule 1 cell PO DAILY RF: 0 levothyroxine 25 mcg tablet 25 mcg PO DAILY@0600 RF: 0 furosemide [Lasix] 40 mg tablet 40 mg PO BID RF: 0 cholecalciferol (vitamin D3) 50 mcg (2,000 unit) Capsule 50 mcg PO DAILY RF: 0 diltiazem HCl [Cardizem CD] 180 mg capsule,extended release 24hr 180 mg PO DAILY RF: 0 montelukast [Singulair] 10 mg tablet 10 mg PO QHS RF: 0 Eliquis 5 mg tablet 5 mg PO BID RF: 0 tramadol 50 mg Tablet 50 - 100 mg PO Q6H PRN PRN (Reason: Pain Score 4-10) 7 Days Qty: 60 RF: 0 atorvastatin [Lipitor] 10 mg tablet 10 mg PO QHS RF: 0 sennosides-docusate sodium [Stool Softener-Stimulant Laxat] 8.6-50 mg tablet 2 tab PO BID RF: 0 acetaminophen 500 mg tablet 1,000 mg PO Q8 RF: 0 ferrous sulfate 325 MG tablet 325 mg PO QODAY RF: 0 doxycycline hyclate 100 mg tablet 100 mg PO BID RF: 0 ipratropium bromide 21 mcg (0.03 %) spray,non-aerosol 2 spray intranasal BID RF: 0 Advair HFA 230-21 mcg/actuation HFA aerosol inhaler 2 puff INHALATION BID RF: 0 Mucus Relief ER 1,200 mg tablet extended release 12hr 1,200 mg PO BID RF: 0 Ensure Surgery 0.08-1.4 gram-kcal/mL liquid 237 ml PO TIDCM RF: 0 albuterol sulfate 2.5 mg /3 mL (0.083 %) solution for nebulization 2.5 mg INHALATION Q4H PRN Qty: 180 RF: 6 flecainide 50 mg tablet 50 mg PO BID Qty: 180 RF: 3 Referrals / Follow Up: Ervin Donnelly MD [Primary Care Provider] - Disposition Disposition (needs filled in before D/C Order can be placed): Acute [facility]
--- NOTE | 2021-07-07 09:04 | MDS.RN ---
Information for the mds was obtained from review of the clinical record, interview of resident, staff, and direct observation of resident's care.
== END 2021-07-04 07:50 | disposition short-term general hospital (02) | DRG 559 ==
PROVIDERS: Admitting Provider Family Medicine Geriatric Medicine; PCP Family Medicine; Visit Provider Family Medicine Geriatric Medicine
DX: Z47.1 Aftercare following joint replacement surgery (principal); J15.1 Pneumonia due to Pseudomonas; I13.0 Hypertensive heart and chronic kidney disease with heart failure and stage 1 through stage 4 chronic kidney disease, or unspecified chronic kidney disease; I50.32 Chronic diastolic (congestive) heart failure; Z68.42 Body mass index [BMI] 45.0-49.9, adult; E11.22 Type 2 diabetes mellitus with diabetic chronic kidney disease; D50.9 Iron deficiency anemia, unspecified; E03.9 Hypothyroidism, unspecified; B96.5 Pseudomonas (aeruginosa) (mallei) (pseudomallei) as the cause of diseases classified elsewhere; E11.51 Type 2 diabetes mellitus with diabetic peripheral angiopathy without gangrene; I48.0 Paroxysmal atrial fibrillation; E66.01 Morbid (severe) obesity due to excess calories; N18.31 Chronic kidney disease, stage 3a; E55.9 Vitamin D deficiency, unspecified; E78.5 Hyperlipidemia, unspecified; M16.12 Unilateral primary osteoarthritis, left hip; G47.33 Obstructive sleep apnea (adult) (pediatric); Z86.711 Personal history of pulmonary embolism; Z79.51 Long term (current) use of inhaled steroids; Z79.01 Long term (current) use of anticoagulants; Z87.891 Personal history of nicotine dependence; Z96.642 Presence of left artificial hip joint; Z79.899 Other long term (current) drug therapy; Z79.890 Hormone replacement therapy; Z86.718 Personal history of other venous thrombosis and embolism
CPT/HCPCS: 36415; 71046; 72100; 80048; 81001; 83605; 85025; 87040; 87070; 87077; 87086; 87184; 87186; 87205; 87426; 87633; 94640; 94667; 94668; 97110; 97116; 97162; 97166; 97530; 97535; 97802; J7050; A4216

== ENCOUNTER 2021-07-03 23:38 | Emergency (ER) | payer MEDICARE, OTHER, SELFPAY ==
[2021-07-03 23:39] VITALS: BP 105/47; PULSE 78; RESP 22; TEMP 38.5; O2SAT 97; BMI 43.8
--- NOTE | 2021-07-04 00:24 | EDS_ITS ---
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 She is recently developed a fever and they are treating her for possible Pseudomonas pneumonia. She was seen by infectious disease yesterday. Started on cefepime IV. Was having trouble controlling the fevers today in the transitional care unit and sent her down to the emergency department. Bring in nausea no vomiting. They did a recent urinalysis that was negative. Her left hip surgery incision is look dry and clean. Prior similar symptoms: Yes Recent Illness/Hospitalization: Yes [facility] Medical History Abnormal chest CT Acute bronchiolitis Acute respiratory failure ALEXYS (acute kidney injury) Allergic rhinitis Anemia Anxiety Aspiration into airway Asthma Atrial fibrillation with rapid ventricular response Atrial tachycardia Back pain Benign essential HTN Bronchiectasis Bronchiectasis with (acute) exacerbation Cardiology follow-up encounter Cellulitis of right lower extremity Chronic diastolic heart failure Chronic respiratory failure Coarse tremors COLD (chronic obstructive lung disease) Congestive heart failure (CHF) COPD with acute exacerbation Diabetes Diabetes mellitus DVT (deep venous thrombosis) Easy bruising Former smoker Gastroesophageal reflux disease HCAP (healthcare-associated pneumonia) High cholesterol History of DVT (deep vein thrombosis) History of echocardiogram History of edema 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 History of renal disease History of stress test Hx pulmonary embolism Hyperlipidemia Hypertension Hypothyroidism Hypoxemia Injury of back Insomnia Kidney disease Lung nodule Migraine headache Morbid obesity MRSA pneumonia Obesity GAGAN (obstructive sleep apnea) Pain of left hip Paroxysmal atrial fibrillation Paroxysmal atrial tachycardia Pneumonia Precordial chest pain Pulmonary embolism PVD (peripheral vascular disease) Right foot pain Severe sepsis Shortness of breath on exertion Steroid myopathy Tachycardia Thrush, oral Umbilical hernia Venous thromboembolism (VTE) Walker as ambulation aid Weakness Wears glasses Home Medications levothyroxine 25 mcg tablet 25 mcg PO DAILY@0600 01/04/20 [History Last Taken 06/24/21] albuterol sulfate 2.5 mg INHALATION Q4H PRN #180 vial 03/17/20 [Rx Last Taken 06/23/21] famotidine 40 mg tablet 40 mg PO QHS 04/02/20 [History Last Taken 06/23/21] cholecalciferol (vitamin D3) 50 mcg PO DAILY 09/19/20 [History Last Taken 06/23/21] furosemide [Lasix] 40 mg PO BID 09/19/20 [History Last Taken 06/23/21] esomeprazole magnesium 40 mg capsule,delayed release 40 mg PO DAILY cap 10/13/20 [History Last Taken 06/24/21] potassium chloride 20 mEq tablet,extended release(part/cryst) 20 meq PO BID tab 10/13/20 [History Last Taken 06/23/21] flecainide 50 mg tablet 50 mg PO BID #180 tab 02/19/21 [Rx Last Taken 06/23/21] lactobacillus combination no.8 3 billion cell capsule 1 cell PO DAILY 03/25/21 [History Last Taken 06/23/21] Eliquis 5 mg PO BID 04/01/21 [History Last Taken 05/21/21] diltiazem HCl [Cardizem CD] 180 mg PO DAILY 04/01/21 [History Last Taken 06/24/21] montelukast [Singulair] 10 mg PO QHS 04/01/21 [History Last Taken 06/23/21] Advair HFA 2 puff INHALATION BID 06/26/21 [History Last Taken Unknown] Mucus Relief ER 1,200 mg PO BID 06/26/21 [History Last Taken Unknown] acetaminophen 1,000 mg PO Q8 06/26/21 [History Last Taken Unknown] atorvastatin [Lipitor] 10 mg PO QHS 06/26/21 [History Last Taken Unknown] doxycycline hyclate 100 mg PO BID 06/26/21 [History Last Taken Unknown] ferrous sulfate 325 mg PO QODAY 06/26/21 [History Last Taken Unknown] ipratropium bromide 2 spray INTRANASAL BID 06/26/21 [History Last Taken Unknown] nut.tx.comp. immune systm,reg [Ensure Surgery] 237 ml PO TIDCM 06/26/21 [History Last Taken Unknown] sennosides-docusate sodium [Stool Softener-Stimulant Laxat] 2 tab PO BID 06/26/21 [History Last Taken Unknown] tramadol 50 - 100 mg PO Q6H PRN PRN 7 Days #60 tab 06/26/21 [Rx Last Taken Unknown] Allergy/AdvReac Type Severity Reaction Status Date / Time adhesive Allergy SKIN Verified 06/24/21 10:11 TEARS. PAPER TAPE OK azithromycin [From Zithromax] Allergy Rash Verified 06/24/21 10:11 cefuroxime sodium Allergy Rash Verified 06/24/21 10:11 [From Zinacef] clindamycin Allergy Hives Verified 06/24/21 10:11 nitrofurantoin Allergy Rash Verified 06/24/21 10:11 macrocrystalline [From Macrodantin] Sulfa (Sulfonamide Allergy Rash Verified 06/24/21 10:11 Antibiotics) atenolol AdvReac Severe Peripheal Verified 06/24/21 10:11 edema & cough metoprolol [From Toprol XL] AdvReac Severe Peripheral Verified 06/24/21 10:11 edema & cough duloxetine [From Cymbalta] AdvReac Intermediate made me Verified 06/24/21 10:11 feel really sick Corticosteroids AdvReac Other Verified 06/24/21 10:11 (Glucocorticoids) oxycodone HCl [From Percocet] AdvReac Vomiting Verified 06/24/21 10:11 Family History Mother Hypertension Diabetes Heart disease Pulmonary embolism Father Perforated ulcer Respiratory failure Sister Asthma Hypertension Surgical History H/O section H/O foot surgery H/O hernia repair H/O shoulder surgery H/O: hysterectomy History of appendectomy History of cardioversion (~12/2016) History of left heart catheterization Hx of vein stripping S/P hip replacement S/P hysterectomy Social History household members: none Smoking Status: Former smoker quit date: 02/14/75 pack-years: 3 second hand exposure: No alcohol intake: never substance use type: does not use caffeine: No what type of physical activity do you participate in: none ROS ROS ED ROS Narrative Fever. Cough. Review of Systems ROS Unobtainable: Denies due to encephalopathy Constitutional Constitutional ED: Reports fever(s) Eyes Eyes: Denies change in vision ENT ENT ED: Denies ear pain or rhinorrhea Cardiovascular Cardiovascular: Denies chest pain Respiratory/Chest Respiratory/Chest: Reports cough; Denies dyspnea Gastrointestinal Gastrointestinal: Reports nausea; Denies abdominal pain, diarrhea or vomiting Genitourinary Genitourinary ED: Denies dysuria or hematuria Musculoskeletal Musculoskeletal: Denies myalgias Integumentary Denies rash Neurologic Neurologic: Denies headache(s) Psychiatric Psychiatric: Denies depression Endocrine Endocrinology: Denies polyuria Allergic/Immunologic Allergic/Immunologic ED: Denies urticaria EXAM Physical Exam Narrative Exam Narrative: Six 6-year-old female vital signs are stable she does have a fever one 1.3. Pulse ox 97% on room air no signs hypoxia. She is no distress. H EENT exam mildly dry mucous members. Otherwise unremarkable. Neck nontender no meningismus. Lungs coarse breath sounds with rhonchi on the left base. H eart regular rhythm rate about 80 no murmur. Abdomen soft nontender. Normal bowel sounds. Moving all 4 extremities. Left hip surgical incision is dry and clean no cellulitis. No pus. Neurologically she is awake and alert with no focal motor deficits. Const Vital Signs: 07/03/21 23:39 07/04/21 00:59 07/04/21 01:09 Temperature 101.3 F H 98.5 F Temperature Source Temporal Temporal Pulse Rate 78 98 99 Respiratory Rate 22 H 23 H 23 H Blood Pressure 105/47 L 110/57 L Blood Pressure Mean 66 74 Pulse Ox 97 96 95 Oxygen Delivery Method Room Air Room Air Room Air 07/04/21 01:10 07/04/21 01:24 Temperature 98.5 F Temperature Source Temporal Pulse Rate 101 H Respiratory Rate 26 H Blood Pressure 108/54 L Blood Pressure Mean 72 Pulse Ox 98 Oxygen Delivery Method Room Air Positive well nourished and well developed; Negative for cachectic, contractures or unkempt General Appearance ED: well developed and NAD; Negative for unkempt, cachectic, contractures, cyanotic, diaphoretic or pallor Nutritional Appearance: Negative for cachectic HEENT Reports dry mucous membranes tenderness; Negative for trauma Mouth ED: Yes dry mucous membranes Mouth: dry mucous membranes Eyes PERRL and EOMs intact bilaterally General Eye ED: Negative for pale conjunctiva or scleral icterus Neck no lymphadenopathy, supple and no JVD General: Negative for tenderness Chest Wall inspection of chest normal and palpation of chest normal Resp normal respiratory effort and No clear to auscultation bilaterally Effort and Inspection: Negative for pain with movement Auscultation: rhonchi; Negative for rales or wheezes Cardio regular rate, regular rhythm, S1 normal heart sound, S2 normal heart sound and no murmurs GI normal to inspection, nondistended, normoactive bowel sounds, non-tender, non-distended and no masses Auscultation: normoactive bowel sounds Palpation: soft; Negative for tender, guarding or rebound tenderness present Back/Spine no CVA tenderness General Back: Negative for CVA tenderness Cervical Spine: Negative for cervical spine tenderness Thoracic Spine / Upper Back: Negative for thoracic spinal tenderness Extremity normal to inspection Extremity Narrative: Left hip replacement surgical site dry and clean. No cellulitis. No discharge. General Extremety ED: Negative for edema or tenderness General Extremity: Negative for edema Neuro oriented x3 Sensorium / Orientation: alert; Negative for orientation impaired, lethargic or stuporous Motor Exam: strength 5/5 throughout Psych mental status grossly normal Appearance: Negative for unkempt Mood & Affect: Negative for depressed or tearful Skin no rashes or lesions noted and no wounds General Skin Exam: Negative for jaundice or pallor MDM MDM MDM Narrative Medical decision making narrative: 66-year-old status post left hip replacement suspected pneumonia may be Pseudomonas. Seen by infectious disease yesterday in the transitional care unit started on cefepime. Undergo a sepsis work-up. Treated with IV fluids. Tylenol for fever. Exam patient is doing well at 2:17 AM. She denies discussed her test results. She would prefer to go back to the transitional care unit then be readmitted to the hospital. She is currently being seen by ID and is currently on IV antibiotics. She will be discharged back to the transitional care unit. Lab Data Attestation: I reviewed the patient's lab results. Lab results narrative: CBC shows a white count 13.7. H&H 8.6 and 20.9. History of chronic anemia. Platelets 500. Electrolytes show a gap of 8 BUN and creatinine are 28 and 1.36. Glucose 114. Lactic acid 0.8. Liver enzymes are unremarkable. PT, INR and PTT are unremarkable. Chest x-ray is unremarkable. Chronic changes. Labs: Laboratory Results - last 24 hr 07/04/21 07/04/21 07/04/21 00:00 00:00 00:00 WBC 13.7 H RBC 3.04 L Hgb 8.6 L Hct 28.9 L MCV 95.1 MCH 28.3 MCHC 29.8 L RDW Std Deviation 51.0 H RDW Coeff of Lanre 14.7 H Plt Count 500 H MPV 10.0 Immature Gran % (Auto) 1.000 H Neut % (Auto) 83.0 H Lymph % (Auto) 5.7 L [place] % (Auto) 7.0 Eos % (Auto) 3.2 Baso % (Auto) 0.1 Absolute Neuts (auto) 11.3 H Absolute Lymphs (auto) 0.78 L Nucleated RBC % 0 PT INR APTT Sodium 140 Potassium 3.9 Chloride 108 H Carbon Dioxide 24.0 Anion Gap 8 BUN 28 H Creatinine 1.36 H Estim Creat Clear Calc 30.29 Est GFR (MDRD) Af Amer 50 L Est GFR (MDRD) Non-Af 41 L BUN/Creatinine Ratio 20.6 H Glucose 114 H Lactic Acid 0.8 Calcium 8.9 Total Bilirubin 0.30 AST 17 ALT 17 Alkaline Phosphatase 92 Total Protein 6.9 Albumin 2.3 L Globulin 4.6 H Albumin/Globulin Ratio 0.5 L 07/04/21 00:50 WBC RBC Hgb Hct MCV MCH MCHC RDW Std Deviation RDW Coeff of Lanre Plt Count MPV Immature Gran % (Auto) Neut % (Auto) Lymph % (Auto) [place] % (Auto) Eos % (Auto) Baso % (Auto) Absolute Neuts (auto) Absolute Lymphs (auto) Nucleated RBC % PT 20.4 H INR 1.8 APTT 32.0 Sodium Potassium Chloride Carbon Dioxide Anion Gap BUN Creatinine Estim Creat Clear Calc Est GFR (MDRD) Af Amer Est GFR (MDRD) Non-Af BUN/Creatinine Ratio Glucose Lactic Acid Calcium Total Bilirubin AST ALT Alkaline Phosphatase Total Protein Albumin Globulin Albumin/Globulin Ratio Radiography Chest X-Ray - ED: 1 View, Read by ED Physician, Heart, Lungs, Mediastinum, Bony Structures, No Acute Disease and Chronic Changes Diagnostic Testing: Clinical Impression(s) from Imaging Studies Chest X-Ray 07/04/21 00:29 IMPRESSION: Borderline clinically. Linear scars in the lung bases. A stable nodular opacity in the right midlung zone. No pneumothorax. Trachea midline. No sizable pleural effusion. Status post right shoulder arthroplasty. Electronically Signed: Amandeep Rangel MD at 1:04 EDT , Chest x-ray, portable, single view interpreted by myself and radiologist shows chronic changes. No obvious pneumonia. There is linear scarring. Discharge Plan Triage Chief Complaint: Fever ED Provider: Thierno Wilson Dx/Rx/DC Orders Clinical Impression: Fever, Pneumonia, Status post hip replacement, History of diabetes mellitus, History of COPD Instructions: ED Pneumonia (Adult) Prescriptions: No Action famotidine 40 mg tablet 40 mg PO QHS RF: 0 esomeprazole magnesium [Nexium] 40 mg capsule,delayed release(DR/EC) 40 mg PO DAILY RF: 0 potassium chloride 20 mEq tablet,ER particles/crystals 20 meq PO BID RF: 0 lactobacillus combination no.8 3 billion cell capsule 1 cell PO DAILY RF: 0 levothyroxine 25 mcg tablet 25 mcg PO DAILY@0600 RF: 0 furosemide [Lasix] 40 mg tablet 40 mg PO BID RF: 0 cholecalciferol (vitamin D3) 50 mcg (2,000 unit) Capsule 50 mcg PO DAILY RF: 0 diltiazem HCl [Cardizem CD] 180 mg capsule,extended release 24hr 180 mg PO DAILY RF: 0 montelukast [Singulair] 10 mg tablet 10 mg PO QHS RF: 0 Eliquis 5 mg tablet 5 mg PO BID RF: 0 tramadol 50 mg Tablet 50 - 100 mg PO Q6H PRN PRN (Reason: Pain Score 4-10) 7 Days Qty: 60 RF: 0 atorvastatin [Lipitor] 10 mg tablet 10 mg PO QHS RF: 0 sennosides-docusate sodium [Stool Softener-Stimulant Laxat] 8.6-50 mg tablet 2 tab PO BID RF: 0 acetaminophen 500 mg tablet 1,000 mg PO Q8 RF: 0 ferrous sulfate 325 MG tablet 325 mg PO QODAY RF: 0 doxycycline hyclate 100 mg tablet 100 mg PO BID RF: 0 ipratropium bromide 21 mcg (0.03 %) spray,non-aerosol 2 spray intranasal BID RF: 0 Advair HFA 230-21 mcg/actuation HFA aerosol inhaler 2 puff INHALATION BID RF: 0 Mucus Relief ER 1,200 mg tablet extended release 12hr 1,200 mg PO BID RF: 0 Ensure Surgery 0.08-1.4 gram-kcal/mL liquid 237 ml PO TIDCM RF: 0 albuterol sulfate 2.5 mg /3 mL (0.083 %) solution for nebulization 2.5 mg INHALATION Q4H PRN Qty: 180 RF: 6 flecainide 50 mg tablet 50 mg PO BID Qty: 180 RF: 3 Primary Care Provider: Ervin Donnelly Referrals: Ervin Donnelly MD [Primary Care Provider] - Jose Angel Kaur Chi, MD [COURTESY STAFF PHYSICIAN] - As Needed Activity Restrictions/Additional Instructions: Plenty of fluids and rest. Continue IV antibiotics per Dr. Orta and Dr. Kaur. Have patient reevaluated by Dr. Kaur in the next 24 hours. Tylenol for the fever. Disposition Disposition: Service Desk Team Lead Acute Care
--- NOTE | 2021-07-04 00:29 | RAD_ITS ---
STUDY: X-RAY CHEST REASON FOR EXAM: Female, 66 years old. cough TECHNIQUE: 1 view COMPARISON: 06/28/[address] scan dated 08/19/2020 FINDINGS: Please see the impression. RAD/Chest 1 View (Portable) IMPRESSION: Borderline clinically. Linear scars in the lung bases. A stable nodular opacity in the right midlung zone. No pneumothorax. Trachea midline. No sizable pleural effusion. Status post right shoulder arthroplasty. Electronically Signed: Amandeep Rangel MD at 1:04 EDT ,
[2021-07-04 00:33] LABS: Absolute Lymphocyte Count 0.78 X10^3/uL (0.83-4.51); Absolute Neutrophil Count 11.3 X10^3/uL (2.0-7.7); Basophil# 0.02 X10^3/uL; Basophil% 0.1 % (0-1); Eosinophil# 0.44 X10^3/uL; Eosinophils% 3.2 % (0-5); Hematocrit 28.9 % (37-47); Hemoglobin 8.6 g/dL (12.0-15.0); Lymphocyte # 0.78 X10^3/ul (0.83-4.51); Lymphocyte % 5.7 % (19-41); Mean Corp Hgb Conc 29.8 g/dL (32-36); Mean Corpuscular Hgb 28.3 pg (27.0-32.0); Mean Corpuscular Volume 95.1 fL (81-99); Monocyte# 0.96 X10^3/uL; NRBC Flagged by Analyzer 0 % (0-5); Neutrophil # 11.33 X10^3/uL (2.7-7.7); Platelet Count 500 K/mm3 (150-450); RBC Distribution Width CV 14.7 % (11.6-14.6); Red Blood Count 3.04 M/mm3 (4.2-5.4); White Blood Count 13.7 K/mm3 (4.4-11.0)
[2021-07-04] MEDS: Acetaminophen 325 MG Tablet 650 MG PO (00:40)
[2021-07-04] MEDS: 0.9% Normal Saline 1,000 ML 999 ML IV (00:40)
[2021-07-04 00:50] LABS: ALB/GLOB Ratio 0.5 RATIO (0.9-2.4); AST(SGOT) 17 U/L (15-37); Alanine Aminotransfer ALT/SGPT 17 U/L (13-56); Albumin, Serum 2.3 g/dL (3.2-5.0); Alkaline Phosphatase 92 U/L (45-117); Anion Gap 8 (5-15); BUN 28 mg/dL (7-18); BUN/Creat Ratio 20.6 RATIO (10-20); Calcium,Total 8.9 mg/dL (8.5-10.1); Chloride 108 mmol/L (98-107); Creatinine, Serum 1.36 mg/dL (0.55-1.02); EST Glomerular Filtration Rate 41 mL/min (>60); Est Glom Filt Rate - Afr Amer 50 mL/min (>60); Estimated Creatinine Clearance 30.29 ml/min; Globulin 4.6 g/dL (2.2-4.2); Glucose 114 mg/dL (74-106); Potassium 3.9 mmol/L (3.5-5.1); Protein, Total 6.9 g/dL (6.4-8.2); Sodium Level 140 mmol/L (136-145)
[2021-07-04 00:59] VITALS: PULSE 98; RESP 23; O2SAT 96
[2021-07-04 01:05] LABS: International Normalized Ratio 1.8; Prothrombin Time (Protime)PT. 20.4 SECONDS (11.7-14.9)
[2021-07-04 01:09] VITALS: BP 110/57; PULSE 99; RESP 23; TEMP 36.9; O2SAT 95
[2021-07-04 01:10] VITALS: TEMP 36.9
[2021-07-04 01:24] VITALS: BP 108/54; PULSE 101; RESP 26; O2SAT 98
[2021-07-04 01:31] LABS: Lactic Acid 0.8 mmol/L (0.4-1.9)
[2021-07-04 02:22] VITALS: PULSE 90; RESP 16; O2SAT 98
== END 2021-07-04 02:30 ==
PROVIDERS: Emergency Provider Emergency Medicine; PCP Family Medicine; Visit Provider Emergency Medicine
DX: J18.9 Pneumonia, unspecified organism (principal); J44.9 Chronic obstructive pulmonary disease, unspecified; I11.0 Hypertensive heart disease with heart failure; I50.32 Chronic diastolic (congestive) heart failure; E11.9 Type 2 diabetes mellitus without complications; E78.5 Hyperlipidemia, unspecified; Z87.891 Personal history of nicotine dependence; R11.0 Nausea; E78.00 Pure hypercholesterolemia, unspecified; Z96.649 Presence of unspecified artificial hip joint; R50.9 Fever, unspecified
CPT/HCPCS: 99285; 36415; 71045; 80053; 83605; 85025; 85610; 85730; 87040; J7030; A4216

== ENCOUNTER → 2021-07-03 | Outpatient (CLI) | payer MEDICARE, OTHER, SELFPAY ==
--- NOTE | 2021-07-03 11:31 | VDLE_ITS ---
Reason For Study: pain Procedure LEFT This is a venous duplex using B-mode, color GSV is normal. flow and spectral Doppler. CFV is compressible, spontaneous, phasic, Exam performed portable in patient room. competent, and demonstrates normal The exam was abbreviated due to the COVID 19 augmentation. protocol. FV is compressible, spontaneous, phasic, The exam was diagnostic. competent and demonstrates normal A preliminary report was called and/or faxed augmentation. to the pt's RN. POP V is compressible, spontaneous, phasic, competent and demonstrates normal augmentation. T/P Trunk is compressible. PTV is compressible. LT PerV is compressible. VL/Venous Duplex US, Unilateral Interpretation Summary Deep veins of the left lower extremity are patent and compressible segmentally. There is no evidence of left lower extremity deep vein thrombosis. Valvular competence appears intac t within the proximal deep venous system on the left . The left great saphenous vein appears patent a nd compressible segmentally. Ordering Physician: Jose Angel Kaur Performed By: Fortino Valdovinos RVT
--- NOTE | 2021-07-03 14:14 | CT_ITS ---
EXAM: CT LEFT LOWER EXTREMITY WITHOUT INTRAVENOUS CONTRAST, HIP CLINICAL INDICATION: M25.552 -- LEFT HIP PAIN. HIP REPLACEMENT 06/24/21 TECHNIQUE: Helically acquired images were obtained of the left hip without intravenous contrast. This CT exam was performed using one or more of the following dose reduction techniques: automated exposure control, adjustment of the mA and/or kV according to patient size, and/or use of iterative reconstruction technique. This report was created using [employer] report [employer] technology. COMPARISON: None. FINDINGS: BONES/JOINTS: Left hip prosthesis in place in satisfactory position. Visualized bony pelvis is intact. No acute fracture. No subluxation. Normal alignment. Preservation of the joint space. No sclerotic or destructive changes. SOFT TISSUES: Mild edema of the subcutaneous tissues of the left buttock and proximal thigh. Small bubble of gas within the same region may be related to recent surgery. No radiopaque foreign body. BOWEL: Visualized bowel is normal. BLADDER: Urinary bladder is normal. REPRODUCTIVE: Uterus is absent. CT/Extremity Lower without Contra IMPRESSION: 1. No acute abnormality. 2. Residual postoperative changes of the soft tissues of the left buttock and thigh. Electronically Signed: Milind Solares MD at 15:47 EDT ,
== END | disposition home or self-care (01) ==
PROVIDERS: PCP Family Medicine; Referring Provider Family Medicine Geriatric Medicine; Visit Provider Family Medicine Geriatric Medicine
DX: M25.552 Pain in left hip (principal)
CPT/HCPCS: 73700; 93971

== ENCOUNTER 2021-07-04 07:54 | Inpatient (IN) | payer MEDICARE, OTHER, SELFPAY ==
[2021-07-04] VITALS (13 sets, daily range): BP systolic 98–128; BP diastolic 56–66; PULSE 86–101; RESP 16–20; TEMP 37.1–39.4; O2SAT 92–99; BMI 43.4; BMI 42.7
--- NOTE | 2021-07-04 08:09 | EX.ED.DYSGE1 ---
HPI History of Present Illness Chief Complaint: Fever Detail of Chief Complaint: Fever and cough Informant: patient Narrative Narrative: Patient presents to the emergency department from the transitional care unit with complaint of fever and cough. Patient had left total hip replacement done on June 25. Patient was in the transitional care unit when she developed a fever yesterday. Patient was seen in the emergency department yesterday. Patient was discharged back to the transitional care unit yesterday. Patient apparently also seen by infectious disease specialist yesterday and started on cefepime for suspected Pseudomonas pneumonia. Patient denies any dysuria. Patient does complain of some mild discomfort of the left hip but she states that she had a CAT scan of the hip to try to rule out infection in the hip. The CT was unremarkable. Patient states her incisions been looking good. She denies any drainage from it. Transitional care unit physician sent patient to the emergency department this morning to be admitted to the inpatient side given that she once again had an elevated temperature this morning up to 102 and her white blood cell count was more elevated. Prior similar symptoms: No PFSH PFSH Medical History Abnormal chest CT Acute bronchiolitis Acute respiratory failure ALEXYS (acute kidney injury) Allergic rhinitis Anemia Anxiety Aspiration into airway Asthma Atrial fibrillation with rapid ventricular response Atrial tachycardia Back pain Benign essential HTN Bronchiectasis Bronchiectasis with (acute) exacerbation Cardiology follow-up encounter Cellulitis of right lower extremity Chronic diastolic heart failure Chronic respiratory failure Coarse tremors COLD (chronic obstructive lung disease) Congestive heart failure (CHF) COPD with acute exacerbation Diabetes Diabetes mellitus DVT (deep venous thrombosis) Easy bruising Former smoker Gastroesophageal reflux disease HCAP (healthcare-associated pneumonia) High cholesterol History of DVT (deep vein thrombosis) History of echocardiogram History of edema 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 History of renal disease History of stress test Hx pulmonary embolism Hyperlipidemia Hypertension Hypothyroidism Hypoxemia Injury of back Insomnia Kidney disease Lung nodule Migraine headache Morbid obesity MRSA pneumonia Obesity GAGAN (obstructive sleep apnea) Pain of left hip Paroxysmal atrial fibrillation Paroxysmal atrial tachycardia Pneumonia Precordial chest pain Pulmonary embolism PVD (peripheral vascular disease) Right foot pain Severe sepsis Shortness of breath on exertion Steroid myopathy Tachycardia Thrush, oral Umbilical hernia Venous thromboembolism (VTE) Walker as ambulation aid Weakness Wears glasses Home Medications levothyroxine 25 mcg tablet 25 mcg PO DAILY@0600 01/04/20 [History Last Taken 06/24/21] albuterol sulfate 2.5 mg INHALATION Q4H PRN #180 vial 03/17/20 [Rx Last Taken 06/23/21] famotidine 40 mg tablet 40 mg PO QHS 04/02/20 [History Last Taken 06/23/21] cholecalciferol (vitamin D3) 50 mcg PO DAILY 09/19/20 [History Last Taken 06/23/21] furosemide [Lasix] 40 mg PO BID 09/19/20 [History Last Taken 06/23/21] esomeprazole magnesium 40 mg capsule,delayed release 40 mg PO DAILY cap 10/13/20 [History Last Taken 06/24/21] potassium chloride 20 mEq tablet,extended release(part/cryst) 20 meq PO BID tab 10/13/20 [History Last Taken 06/23/21] flecainide 50 mg tablet 50 mg PO BID #180 tab 02/19/21 [Rx Last Taken 06/23/21] lactobacillus combination no.8 3 billion cell capsule 1 cell PO DAILY 03/25/21 [History Last Taken 06/23/21] Eliquis 5 mg PO BID 04/01/21 [History Last Taken 05/21/21] diltiazem HCl [Cardizem CD] 180 mg PO DAILY 04/01/21 [History Last Taken 06/24/21] montelukast [Singulair] 10 mg PO QHS 04/01/21 [History Last Taken 06/23/21] Advair HFA 2 puff INHALATION BID 06/26/21 [History Last Taken Unknown] Mucus Relief ER 1,200 mg PO BID 06/26/21 [History Last Taken Unknown] acetaminophen 1,000 mg PO Q8 06/26/21 [History Last Taken Unknown] atorvastatin [Lipitor] 10 mg PO QHS 06/26/21 [History Last Taken Unknown] doxycycline hyclate 100 mg PO BID 06/26/21 [History Last Taken Unknown] ferrous sulfate 325 mg PO QODAY 06/26/21 [History Last Taken Unknown] ipratropium bromide 2 spray INTRANASAL BID 06/26/21 [History Last Taken Unknown] nut.tx.comp. immune systm,reg [Ensure Surgery] 237 ml PO TIDCM 06/26/21 [History Last Taken Unknown] sennosides-docusate sodium [Stool Softener-Stimulant Laxat] 2 tab PO BID 06/26/21 [History Last Taken Unknown] tramadol 50 - 100 mg PO Q6H PRN PRN 7 Days #60 tab 06/26/21 [Rx Last Taken Unknown] Allergy/AdvReac Type Severity Reaction Status Date / Time adhesive Allergy SKIN Verified 06/24/21 10:11 TEARS. PAPER TAPE OK azithromycin [From Zithromax] Allergy Rash Verified 06/24/21 10:11 cefuroxime sodium Allergy Rash Verified 06/24/21 10:11 [From Zinacef] clindamycin Allergy Hives Verified 06/24/21 10:11 nitrofurantoin Allergy Rash Verified 06/24/21 10:11 macrocrystalline [From Macrodantin] Sulfa (Sulfonamide Allergy Rash Verified 06/24/21 10:11 Antibiotics) atenolol AdvReac Severe Peripheal Verified 06/24/21 10:11 edema & cough metoprolol [From Toprol XL] AdvReac Severe Peripheral Verified 06/24/21 10:11 edema & cough duloxetine [From Cymbalta] AdvReac Intermediate made me Verified 06/24/21 10:11 feel really sick Corticosteroids AdvReac Other Verified 06/24/21 10:11 (Glucocorticoids) oxycodone HCl [From Percocet] AdvReac Vomiting Verified 06/24/21 10:11 Family History Mother Hypertension Diabetes Heart disease Pulmonary embolism Father Perforated ulcer Respiratory failure Sister Asthma Hypertension Surgical History H/O section H/O foot surgery H/O hernia repair H/O shoulder surgery H/O: hysterectomy History of appendectomy History of cardioversion (~12/2016) History of left heart catheterization Hx of vein stripping S/P hip replacement S/P hysterectomy Social History household members: none Smoking Status: Former smoker quit date: 02/14/75 pack-years: 3 second hand exposure: No alcohol intake: never substance use type: does not use caffeine: No what type of physical activity do you participate in: none ROS ROS ED Constitutional Constitutional ED: Reports systems reviewed and no addt'l complaints, except as documented and fever(s); Denies body ache(s), change in weight or chills Eyes Eyes: Denies acute decrease in peripheral vision, change in vision, double vision or loss of vision ENT ENT ED: Reports none; Denies ear pain, lip swelling, loss taste/smell, neck pain, otalgia or sore throat Cardiovascular Cardiovascular: Reports none; Denies abdominal pain, chest pain with activity, leg edema, lightheadedness, palpitations, rapid heart rate or syncope Respiratory/Chest Respiratory/Chest: Reports none, cough and sputum; Denies change in mental status, dry cough, dyspnea, hemoptysis, shortness of breath at rest or shortness of breath with exertion Gastrointestinal Gastrointestinal: Reports none; Denies abdominal pain, change in stool character, diarrhea, hematemesis, hematochezia, melena, rectal bleeding or vomiting Genitourinary Genitourinary ED: Reports none; Denies abdominal discomfort, anuria, dysuria, genital pain or polyuria Musculoskeletal Musculoskeletal: Reports none; Denies arthralgias, back pain, difficulty walking, extremity pain, muscle weakness or myalgias Integumentary Reports none; Denies abscess or rash Neurologic Neurologic: Reports none; Denies abnormal gait, confusion, focal weakness, frequent falls, headache(s), loss of vision, numbness, paresthesias, radicular pain, vertigo or weakness Psychiatric Psychiatric: Reports systems reviewed and no addt'l complaints, except as documented and none; Denies behavioral changes, confusion, difficulty concentrating, hallucinations, suicidal ideation, tactile hallucinations or visual hallucinations Endocrine Endocrinology: Denies none, cold intolerance, excessive sweating, fatigue or heat intolerance Hematologic/Lymphatic Hematologic/Lymphatic: Reports none; Denies anemia, easy bleeding or easy bruising Allergic/Immunologic Allergic/Immunologic ED: Denies as per HPI, none, lip swelling, mouth swelling, throat swelling, tongue swelling or hives EXAM Physical Exam Const Vital Signs: 07/04/21 07:55 07/04/21 08:04 Temperature 100.3 F H 100.3 F H Temperature Source Oral Oral Pulse Rate 101 H 101 H Respiratory Rate 16 16 Respiratory Effort Normal Non-Labored Respiratory Pattern Normal Blood Pressure 114/66 114/66 Blood Pressure Mean 82 82 Pulse Ox 92 92 Oxygen Delivery Method Room Air Room Air Positive well nourished and well developed General Appearance ED: well developed and NAD HEENT Reports TM's clear and moist mucous membranes normocephalic and atraumatic; Negative for trauma or tenderness Tympanic Membrane ED: Yes TM's clear Eyes PERRL and EOMs intact bilaterally General Eye ED: Negative for pale conjunctiva or scleral icterus Neck no lymphadenopathy, supple and no JVD General: Negative for tenderness Chest Wall inspection of chest normal and palpation of chest normal Chest: Negative for tenderness Resp normal respiratory effort and clear to auscultation bilaterally Resp Narrative: Few rhonchi bilaterally. Patient does have a coarse cough. No accessory muscle use or retractions. Effort and Inspection: Negative for respiratory distress or pain with movement Auscultation: rhonchi; Negative for wheezes or diminished lung sounds Cardio regular rate, regular rhythm, S1 normal heart sound, S2 normal heart sound and no murmurs Peripheral Pulses: pulses 2+ throughout GI normal to inspection, nondistended, normoactive bowel sounds, soft to palpation, non-tender, non-distended and no masses Back/Spine no CVA tenderness and no thoracic nor lumbar tenderness Extremity Extremity Narrative: Evaluation of the left hip incision reveals that it is healing well. There are some dried blood noted. There is a small area of linear erythema to the midportion of the incision. There is no drainage. Patient neurovascular intact distally. General Extremety ED: Negative for edema General Extremity: Negative for edema Neuro oriented x3, CN's II-XII intact bilaterally, no sensory deficits noted and gait normal Sensorium / Orientation: awake, alert, oriented to person, oriented to place and oriented to time Motor Exam: strength 5/5 throughout and strength abnormal Psych mental status grossly normal Skin no rashes or lesions noted and no wounds MDM MDM MDM Narrative Medical decision making narrative: Patient presented with IV and left arm. Patient had lab work this morning as well as a chest x-ray. Patient has blood cultures pending. Patient had a dose of her cefepime this morning. This point I will discuss case with hospitalist evaluate patient for admission. Discharge Plan Triage Chief Complaint: Fever ED Provider: Katelyn Davis Dx/Rx/DC Orders Clinical Impression: Fever, Pneumonia Prescriptions: No Action famotidine 40 mg tablet 40 mg PO QHS RF: 0 esomeprazole magnesium [Nexium] 40 mg capsule,delayed release(DR/EC) 40 mg PO DAILY RF: 0 potassium chloride 20 mEq tablet,ER particles/crystals 20 meq PO BID RF: 0 lactobacillus combination no.8 3 billion cell capsule 1 cell PO DAILY RF: 0 levothyroxine 25 mcg tablet 25 mcg PO DAILY@0600 RF: 0 furosemide [Lasix] 40 mg tablet 40 mg PO BID RF: 0 cholecalciferol (vitamin D3) 50 mcg (2,000 unit) Capsule 50 mcg PO DAILY RF: 0 diltiazem HCl [Cardizem CD] 180 mg capsule,extended release 24hr 180 mg PO DAILY RF: 0 montelukast [Singulair] 10 mg tablet 10 mg PO QHS RF: 0 Eliquis 5 mg tablet 5 mg PO BID RF: 0 tramadol 50 mg Tablet 50 - 100 mg PO Q6H PRN PRN (Reason: Pain Score 4-10) 7 Days Qty: 60 RF: 0 atorvastatin [Lipitor] 10 mg tablet 10 mg PO QHS RF: 0 sennosides-docusate sodium [Stool Softener-Stimulant Laxat] 8.6-50 mg tablet 2 tab PO BID RF: 0 acetaminophen 500 mg tablet 1,000 mg PO Q8 RF: 0 ferrous sulfate 325 MG tablet 325 mg PO QODAY RF: 0 doxycycline hyclate 100 mg tablet 100 mg PO BID RF: 0 ipratropium bromide 21 mcg (0.03 %) spray,non-aerosol 2 spray intranasal BID RF: 0 Advair HFA 230-21 mcg/actuation HFA aerosol inhaler 2 puff INHALATION BID RF: 0 Mucus Relief ER 1,200 mg tablet extended release 12hr 1,200 mg PO BID RF: 0 Ensure Surgery 0.08-1.4 gram-kcal/mL liquid 237 ml PO TIDCM RF: 0 albuterol sulfate 2.5 mg /3 mL (0.083 %) solution for nebulization 2.5 mg INHALATION Q4H PRN Qty: 180 RF: 6 flecainide 50 mg tablet 50 mg PO BID Qty: 180 RF: 3 Primary Care Provider: Ervin Donnelly Referrals: Ervin Donnelly MD [Primary Care Provider] - Disposition Disposition: Acute Care Hospital [facility]
--- NOTE | 2021-07-04 08:39 | HP.PCM.HOS_ITS ---
HPI - General General Date of Admission: 07/04/21 HPI Narrative LAURA SERRANO, is a 66 F with a PMh as outlined who was admitted via [facility] ED on 07/04/2021 with a complaint of fever. She was sent down from the TCU with a complaint of fever and increasing white cell count. She had left total hip replacement on june 25 and was sent to the TCU afterwards for rehab. She developed a fever a day ago and was sent ot e ER. THere was concern for Pseudomonas pneumonia so she was started on IV cefepime by the ID physician. She was sent back to the TCU. However, on the morning of admisison her fever spiked to 102F and her wbc also went to 13.8 from 13.7 the day before. THe TCU physician therefore sent patient down to the ED for admission. She admits to a cough. She denies any chest pain, chills, palpitations, nausea or vomiting. Review of systems is otherwise negative. Vitals in the ED were BP of 114/66, RR of 16, temp of 100.3F and saturating at 92% on room air. CBC showed wbc of 13.8., hb of 9.7, platelets of 528. BMP showed sodium of 139, with bicarb of 24 nad Cr of 1.36. Blood cultures were pending and covid test and respiratory panel was negative. Lactic acid wasnt elevated. CXR showed a stable nodular opacity in the right midlung zone. She is being admitted to be managed for presumptive pseudomonas pneumonia. [facility] Medical History Abnormal chest CT Acute bronchiolitis Acute respiratory failure ALEYXS (acute kidney injury) Allergic rhinitis Anemia Anxiety Aspiration into airway Asthma Atrial fibrillation with rapid ventricular response Atrial tachycardia Back pain Benign essential HTN Bronchiectasis Bronchiectasis with (acute) exacerbation Cardiology follow-up encounter Cellulitis of right lower extremity Chronic diastolic heart failure Chronic respiratory failure Coarse tremors COLD (chronic obstructive lung disease) Congestive heart failure (CHF) COPD with acute exacerbation Diabetes Diabetes mellitus DVT (deep venous thrombosis) Easy bruising Former smoker Gastroesophageal reflux disease HCAP (healthcare-associated pneumonia) High cholesterol History of DVT (deep vein thrombosis) History of echocardiogram History of edema 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 History of renal disease History of stress test Hx pulmonary embolism Hyperlipidemia Hypertension Hypothyroidism Hypoxemia Injury of back Insomnia Kidney disease Lung nodule Migraine headache Morbid obesity MRSA pneumonia Obesity GAGAN (obstructive sleep apnea) Pain of left hip Paroxysmal atrial fibrillation Paroxysmal atrial tachycardia Pneumonia Precordial chest pain Pulmonary embolism PVD (peripheral vascular disease) Right foot pain Severe sepsis Shortness of breath on exertion Steroid myopathy Tachycardia Thrush, oral Umbilical hernia Venous thromboembolism (VTE) Walker as ambulation aid Weakness Wears glasses Home Medications levothyroxine 25 mcg tablet 25 mcg PO DAILY@0600 01/04/20 [History Last Taken 07/04/21 05:51] albuterol sulfate 2.5 mg INHALATION Q4H PRN #180 vial 03/17/20 [Rx Last Taken 07/03/21 19:16] famotidine 40 mg tablet 40 mg PO QHS 04/02/20 [History Last Taken 07/03/21 23:04] cholecalciferol (vitamin D3) 50 mcg PO DAILY 09/19/20 [History Last Taken 07/04/21 05:54] furosemide [Lasix] 40 mg PO BID 09/19/20 [History Last Taken 07/04/21 05:52] esomeprazole magnesium 40 mg capsule,delayed release 40 mg PO DAILY cap 10/13/20 [History Last Taken 07/04/21 05:52] potassium chloride 20 mEq tablet,extended release(part/cryst) 20 meq PO BID tab 10/13/20 [History Last Taken 07/03/21 07:56] flecainide 50 mg tablet 50 mg PO BID #180 tab 02/19/21 [Rx Last Taken 07/04/21 05:54] lactobacillus combination no.8 3 billion cell capsule 1 cell PO DAILY 03/25/21 [History Last Taken 07/04/21 06:03] Eliquis 5 mg PO BID 04/01/21 [History Last Taken 07/04/21 05:51] diltiazem HCl [Cardizem CD] 180 mg PO DAILY 04/01/21 [History Last Taken 07/04/21 05:52] montelukast [Singulair] 10 mg PO QHS 04/01/21 [History Last Taken 07/03/21 23:05] Advair HFA 2 puff INHALATION BID 06/26/21 [History Last Taken 07/04/21 05:53] Mucus Relief ER 1,200 mg PO BID 06/26/21 [History Last Taken 07/04/21 05:51] acetaminophen 1,000 mg PO Q8 06/26/21 [History Last Taken 07/04/21 05:51] atorvastatin [Lipitor] 10 mg PO QHS 06/26/21 [History Last Taken 07/03/21 23:03] doxycycline hyclate 100 mg PO BID 06/26/21 [History Last Taken 07/04/21 05:52] ferrous sulfate 325 mg PO QODAY 06/26/21 [History Last Taken 07/03/21 11:43] ipratropium bromide 2 spray INTRANASAL BID 06/26/21 [History Last Taken Unknown] nut.tx.comp. immune systm,reg [Ensure Surgery] 237 ml PO TIDCM 06/26/21 [History Last Taken Unknown] sennosides-docusate sodium [Stool Softener-Stimulant Laxat] 2 tab PO BID 06/26/21 [History Last Taken Unknown] tramadol 50 - 100 mg PO Q6H PRN PRN 7 Days #60 tab 06/26/21 [Rx Last Taken 07/03/21 15:14] Allergy/AdvReac Type Severity Reaction Status Date / Time adhesive Allergy SKIN Verified 07/04/21 08:16 TEARS. PAPER TAPE OK azithromycin [From Zithromax] Allergy Rash Verified 07/04/21 08:16 cefuroxime sodium Allergy Rash Verified 07/04/21 08:16 [From Zinacef] clindamycin Allergy Hives Verified 07/04/21 08:16 nitrofurantoin Allergy Rash Verified 07/04/21 08:16 macrocrystalline [From Macrodantin] Sulfa (Sulfonamide Allergy Rash Verified 07/04/21 08:16 Antibiotics) atenolol AdvReac Severe Peripheal Verified 07/04/21 08:16 edema & cough metoprolol [From Toprol XL] AdvReac Severe Peripheral Verified 07/04/21 08:16 edema & cough duloxetine [From Cymbalta] AdvReac Intermediate made me Verified 07/04/21 08:16 feel really sick Corticosteroids AdvReac Other Verified 07/04/21 08:16 (Glucocorticoids) oxycodone HCl [From Percocet] AdvReac Vomiting Verified 07/04/21 08:16 Family History Mother Hypertension Diabetes Heart disease Pulmonary embolism Father Perforated ulcer Respiratory failure Sister Asthma Hypertension Surgical History H/O section H/O foot surgery H/O hernia repair H/O shoulder surgery H/O: hysterectomy History of appendectomy History of cardioversion (~12/2016) History of left heart catheterization Hx of vein stripping S/P hip replacement S/P hysterectomy Social History household members: none Smoking Status: Former smoker quit date: 02/14/75 pack-years: 3 second hand exposure: No alcohol intake: never substance use type: does not use caffeine: No what type of physical activity do you participate in: none ROS Constitutional Constitutional: Reports chills, fatigue, fever(s), malaise and weakness; Denies anorexia or change in weight Eyes Eyes: Denies change in vision ENT HEENT: Denies dysphagia, headache(s) or nasal congestion Cardiovascular Cardiovascular: Denies chest pain, dyspnea on exertion, edema, lightheadedness, orthopnea, palpitations, paroxysmal nocturnal dyspnea or rapid heart rate Respiratory/Chest Respiratory/Chest: Reports cough, dyspnea, productive cough and shortness of breath at rest; Denies shortness of breath with exertion Gastrointestinal Gastrointestinal: Reports abdominal pain, constipation and diarrhea Genitourinary Genitourinary: Reports burning urination Musculoskeletal Musculoskeletal: Reports arthralgias Neurologic Neurologic: Denies confusion, dizziness or focal weakness Endocrine Endocrinology: Denies change in body appearance Hematologic/Lymphatic Hematologic/Lymphatic: Denies anemia Vital Signs Vital Signs Vital Signs: 07/04/21 07:55 07/04/21 08:04 Temperature 100.3 F H 100.3 F H Temperature Source Oral Oral Pulse Rate 101 H 101 H Respiratory Rate 16 16 Respiratory Effort Normal Non-Labored Respiratory Pattern Normal Blood Pressure 114/66 114/66 Blood Pressure Mean 82 82 Pulse Ox 92 92 Oxygen Delivery Method Room Air Room Air Weight Weight: 230 lb 2.601 oz Body Mass Index (BMI) 43.4 Physical Exam Const alert and oriented x3 General Appearance: cooperative Orientation / Consciousness: lethargic HEENT normocephalic and head/scalp atraumatic HEENT Narrative: dry oral mucosa Eyes PERRL, EOMs intact bilaterally and conjunctivae normal Neck no lymphadenopathy, supple and no JVD Resp Resp Narrative: mildly diminished brath sounds bibasally, few crackles bilaterally, no wheezing. On room air. Cardio regular rate, regular rhythm, S1 normal heart sound, S2 normal heart sound and no murmurs GI normal to inspection, nondistended, normoactive bowel sounds, soft to palpation, non-tender and non-distended Extremity normal to inspection, full ROM and no clubbing, cyanosis or edema Peripheral Pulses: Yes pulses 2+ throughout Skin no rashes or lesions noted Neuro oriented x3, CN's II-XII intact bilaterally and moves all extremities Sensorium / Orientation: awake and alert Psych Psych Narrative: flat affect Assessment & Plan Assessment/Plan (1) Fever: (2) Pneumonia: PLAN: #Fever, likely due to health associated pneumonia * admit to med surg * patients' fever peaked at 102.9F today * she had sputum cultures in the TCU which was positive for Pseudomonas 3+ * was started on IV cefepime 2 days ago by ID * blood cultures and sputum cultures pending * will broaden antibiotics to IV meropenem in light of persistent fever * await blood culture results * hydrate gently with IVF NS @ 125cc/hr * #Recent left hip replacement * she was reviewed by orthopedics who dont think the surgical site is the source of infection. * will moitor * #History of afib * on cardizem and flecainide * on eliquis * #Hyperlipidemia: on statin #history of HFpEF: on furosemide 40mg bid. not in exacerbation #History of asthma: On montelukast. Breathing treatments bronchodilators. #History of hypothyroidism: On Synthroid. DVT prophylaxis: Not indicated as she is already on Eliquis. CODE STATUS: Full code * Patient counseled extensively about different types of CODE STATUS including full code, DNR CCA and DNR CCA. Patient elects to be full code. * Total [id number] time 16 minutes. Charges/Coding Visit Charges Inpatient E&M: 37924 Init Hosp L3 Procedures Hospitalists Procedures: 83979 Advncd Care Plan 30 Min
--- NOTE | 2021-07-04 12:09 | NURSING ---
Addendum entered by Melvin Dinero 07/04/21 12:11: asked pt if it was okay for this RN to take picture of IV site. pt agreed Original Note: IV that was placed on 07/04/21 @ 0148 was removed when pt admitted to floor d/t the IV being placed upside down.
[2021-07-04] MEDS: Albuterol 2.5 MG/3 ML VIAL.NEB. INHALATION ×2 (13:48→19:18)
[2021-07-04] MEDS: Acetaminophen 500 MG Tablet 1000 MG PO ×2 (14:43→23:49)
[2021-07-04] MEDS: traMADol 50 MG Tablet PO ×2 (15:12→21:40)
[2021-07-04] MEDS: Lidocaine 5% Patch 1 PATCH TOPICAL (15:13)
[2021-07-04] MEDS: 0.9% Saline Lock 10 ML Syringe IV (15:45)
[2021-07-04] MEDS: 0.9% Normal Saline 1,000 ML 75 ML IV (15:46)
[2021-07-04] MEDS: Budesonide Respules 0.5 MG/2 ML AMPUL.NEB. INHALATION (19:18)
[2021-07-04] MEDS: Famotidine 20 MG Tablet 40 MG PO (21:39)
[2021-07-04] MEDS: Flecainide 100 MG Tablet 50 MG PO (21:39)
[2021-07-04] MEDS: Nystatin Powder 15gm Bottle 1 APPLIC TOPICAL (21:41)
[2021-07-04] MEDS: Atorvastatin Calcium 10 MG Tablet PO (23:48)
[2021-07-04] MEDS: Potassium Chloride Oral Tablet 20 MEQ PO (23:48)
[2021-07-04] MEDS: Senna/Docusate Sodium 1 Tablet 2 TABLET PO (23:48)
[2021-07-04] MEDS: APIXABAN 5 MG TABLET PO (23:48)
[2021-07-04] MEDS: guaiFENesin 1,200 MG Tablet 1200 MG PO (23:48)
[2021-07-04] MEDS: Montelukast 10 MG Tablet PO (23:48)
[2021-07-04] MEDS: Furosemide 40 MG Tablet PO (23:48)
[2021-07-05] VITALS (14 sets, daily range): BP systolic 96–120; BP diastolic 53–68; PULSE 71–88; RESP 16–20; TEMP 36.4–36.9; O2SAT 93–99
[2021-07-05] MEDS: Nystatin Powder 15gm Bottle 1 APPLIC TOPICAL ×2 (06:37→21:43)
[2021-07-05] MEDS: Lidocaine 5% Patch 1 PATCH TOPICAL (06:37)
[2021-07-05] MEDS: guaiFENesin 1,200 MG Tablet 1200 MG PO ×2 (06:38→21:41)
[2021-07-05] MEDS: Potassium Chloride Oral Tablet 20 MEQ PO ×2 (06:38→21:43)
[2021-07-05] MEDS: Flecainide 100 MG Tablet 50 MG PO ×2 (06:39→21:41)
[2021-07-05] MEDS: Levothyroxine 25 MCG TABLET PO (06:39)
[2021-07-05] MEDS: Furosemide 40 MG Tablet PO ×2 (06:39→21:42)
[2021-07-05] MEDS: dilTIAZem CD 180 MG Capsule PO (06:39)
[2021-07-05] MEDS: APIXABAN 5 MG TABLET PO ×2 (06:39→21:42)
[2021-07-05] MEDS: Pantoprazole Sodium 40 MG Tablet PO (06:39)
[2021-07-05] MEDS: Acetaminophen 500 MG Tablet 1000 MG PO ×3 (06:40→21:42)
[2021-07-05] MEDS: Cholecalciferol (VIT D3) 25 MCG TABLET (1,000 UNITS) 50 MCG PO (06:40)
[2021-07-05] MEDS: Budesonide Respules 0.5 MG/2 ML AMPUL.NEB. INHALATION ×2 (06:52→18:53)
[2021-07-05] MEDS: Albuterol 2.5 MG/3 ML VIAL.NEB. INHALATION ×3 (06:54→18:53)
[2021-07-05] MEDS: Senna/Docusate Sodium 1 Tablet 2 TABLET PO (07:06)
--- NOTE | 2021-07-05 07:19 | PN.HOSP_ITS ---
Subjective Subjective Patient seen and examined. She is feeling better. She denies any fever, chills, though she is still coughing. REview of systems otherwise negative. Fever has improved. Objective Data Objective Data Vital Signs: Vital Signs Temp Pulse Resp BP Pulse Ox 97.7 F L 71 18 113/68 99 07/05/21 03:48 07/05/21 06:52 07/05/21 06:52 07/05/21 06:36 07/05/21 06:52 Oxygen Delivery Method Room Air Weight: 226 lb 1.6 oz Body Mass Index (BMI) 42.7 Intake & Output: Intake and Output for Last 24 Hours 07/03/21 07/04/21 07/05/21 23:59 23:59 23:59 Intake Total 137.5 / 137.5 320 / 320 Output Total 1000 / 1000 Balance 137.5 / 137.5 -680 / -680 Physical Exam Const alert, oriented x3 and no apparent distress General Appearance: cooperative Orientation / Consciousness: lethargic Exam Limitations: no limitations HEENT normocephalic, head/scalp atraumatic and moist oral mucous membranes Head and Scalp: normocephalic Eyes PERRL, EOMs intact bilaterally and conjunctivae normal Neck no lymphadenopathy, supple and no JVD Resp Resp Narrative: mildly diminished breath sounds bibasally, few crackles bilaterally, no wheezing. On room air. Cardio regular rate, regular rhythm, S1 normal heart sound, S2 normal heart sound and no murmurs GI normal to inspection, nondistended, normoactive bowel sounds, soft to palpation, non-tender and non-distended Extremity normal to inspection, full ROM and no clubbing, cyanosis or edema Peripheral Pulses: Yes pulses 2+ throughout Skin no rashes or lesions noted Neuro oriented x3, CN's II-XII intact bilaterally and moves all extremities Sensorium / Orientation: awake and alert Psych Psych Narrative: flat affect Assessment & Plan Assessment/Plan (1) Fever: (2) Pneumonia: PLAN: #Fever, likely due to health associated pneumonia * fever has resolved * on IV meropenem * blood cultures pending * she had sputum cultures in the TCU which was positive for Pseudomonas 3+ * continue gentle hydration with IVF * * * #Recent left hip replacement * she was reviewed by orthopedics who dont think the surgical site is the source of infection. * will monitor * #History of afib * on cardizem and flecainide * on eliquis * #Hyperlipidemia: on statin #history of HFpEF: on furosemide 40mg bid. not in exacerbation #History of asthma: On montelukast. Breathing treatments bronchodilators. #History of hypothyroidism: On Synthroid. DVT prophylaxis: Not indicated as she is already on Eliquis. CODE STATUS: Full code * Charges/Coding Visit Charges Inpatient E&M: 19177 Subs Hosp L2
[2021-07-05 11:41] LABS: Anion Gap 8 (5-15); BUN 23 mg/dL (7-18); Calcium,Total 8.7 mg/dL (8.5-10.1); Chloride 108 mmol/L (98-107); Creatinine, Serum 1.35 mg/dL (0.55-1.02); EST Glomerular Filtration Rate 42 mL/min (>60); Est Glom Filt Rate - Afr Amer 51 mL/min (>60); Estimated Creatinine Clearance 30.51 ml/min; Glucose 111 mg/dL (74-106); Potassium 3.2 mmol/L (3.5-5.1); Sodium Level 140 mmol/L (136-145)
[2021-07-05 12:06] LABS: Hematocrit 32.3 % (37-47); Hemoglobin 9.5 g/dL (12.0-15.0); Mean Corpuscular Volume 96.4 fL (81-99); Red Blood Count 3.35 M/mm3 (4.2-5.4); White Blood Count 10.7 K/mm3 (4.4-11.0)
[2021-07-05 12:07] LABS: Differential Indicated SCAN CRITERIA MET; Mean Corp Hgb Conc 29.4 g/dL (32-36); Mean Corpuscular Hgb 28.4 pg (27.0-32.0); Mean Platelet Vol. 10.1 fl (6.2-12.0); Neutrophil % 80.2 % (47-70); POSITIVE DIFFERENTIAL YES; Platelet Count 456 K/mm3 (150-450); RBC Distribution Width CV 14.4 % (11.6-14.6); RBC Distribution Width SD 51.3 fl (35.1-43.9)
[2021-07-05 12:08] LABS: Absolute Neutrophil Count 8.6 X10^3/uL (2.0-7.7); Basophil# 0.02 X10^3/uL; Basophil% 0.2 % (0-1); Differential Comment SCANNED; Eosinophils% 5.6 % (0-5); Lymphocyte % 5.6 % (19-41); Monocyte% 7.5 % (0-10); Neutrophil # 8.61 X10^3/uL (2.7-7.7)
[2021-07-05] MEDS: Ferrous Sulfate 325 MG Tablet PO (12:25)
[2021-07-05] MEDS: traMADol 50 MG Tablet PO (13:56)
[2021-07-05] MEDS: Atorvastatin Calcium 10 MG Tablet PO (21:42)
[2021-07-05] MEDS: Famotidine 20 MG Tablet 40 MG PO (21:42)
[2021-07-05] MEDS: Montelukast 10 MG Tablet PO (21:42)
[2021-07-06] VITALS (7 sets, daily range): BP systolic 119–143; BP diastolic 64–69; PULSE 74–90; RESP 16–18; TEMP 36.3–37.1; O2SAT 97–99
[2021-07-06] MEDS: traMADol 50 MG Tablet PO (05:48)
[2021-07-06] MEDS: Acetaminophen 500 MG Tablet 1000 MG PO ×2 (05:48→13:28)
[2021-07-06] MEDS: Levothyroxine 25 MCG TABLET PO (05:50)
[2021-07-06 06:11] LABS: Absolute Lymphocyte Count 1.08 X10^3/uL (0.83-4.51); Absolute Neutrophil Count 4.7 X10^3/uL (2.0-7.7); Basophil# 0.03 X10^3/uL; Basophil% 0.4 % (0-1); Eosinophil# 0.54 X10^3/uL; Eosinophils% 7.6 % (0-5); Hematocrit 30.7 % (37-47); Hemoglobin 8.5 g/dL (12.0-15.0); Lymphocyte # 1.08 X10^3/ul (0.83-4.51); Lymphocyte % 15.1 % (19-41); Mean Corp Hgb Conc 27.7 g/dL (32-36); Mean Corpuscular Hgb 28.1 pg (27.0-32.0); Mean Corpuscular Volume 101.7 fL (81-99); Mean Platelet Vol. 10.2 fl (6.2-12.0); Monocyte# 0.75 X10^3/uL; Monocyte% 10.5 % (0-10); NRBC Flagged by Analyzer 0 % (0-5); Neutrophil # 4.69 X10^3/uL (2.7-7.7); Neutrophil % 65.6 % (47-70); POSITIVE MORPHOLOGY YES; Platelet Count 467 K/mm3 (150-450); RBC Distribution Width CV 14.5 % (11.6-14.6); Red Blood Count 3.02 M/mm3 (4.2-5.4); White Blood Count 7.2 K/mm3 (4.4-11.0)
[2021-07-06 06:18] LABS: Differential Indicated SCAN CRITERIA MET
[2021-07-06 06:39] LABS: BUN 22 mg/dL (7-18); Creatinine, Serum 1.12 mg/dL (0.55-1.02); Estimated Creatinine Clearance 36.78 ml/min; Glucose 102 mg/dL (74-106)
[2021-07-06 06:40] LABS: Anion Gap 7 (5-15); BUN/Creat Ratio 19.6 RATIO (10-20); Calcium,Total 8.8 mg/dL (8.5-10.1); Chloride 110 mmol/L (98-107); EST Glomerular Filtration Rate 52 mL/min (>60); Est Glom Filt Rate - Afr Amer 62 mL/min (>60); Potassium 3.4 mmol/L (3.5-5.1); Sodium Level 140 mmol/L (136-145)
[2021-07-06 06:44] LABS: Differential Comment SCANNED
[2021-07-06] MEDS: Albuterol 2.5 MG/3 ML VIAL.NEB. INHALATION ×2 (06:54→13:09)
[2021-07-06] MEDS: Budesonide Respules 0.5 MG/2 ML AMPUL.NEB. INHALATION (06:54)
--- NOTE | 2021-07-06 07:59 | PN.HOSP_ITS ---
Subjective Subjective Feels well. Breathing well. Objective Data Objective Data Vital Signs: Vital Signs Temp Pulse Resp BP Pulse Ox 37.1 C 90 16 119/69 97 07/06/21 07:44 07/06/21 07:44 07/06/21 07:44 07/06/21 07:44 07/06/21 07:44 Oxygen Delivery Method Room Air Weight: 102.557 kg Body Mass Index (BMI) 42.7 Intake & Output: Intake and Output for Last 24 Hours 07/04/21 07/05/21 07/06/21 23:59 23:59 23:59 Intake Total 137.5 / 137.5 1340 / 1740 720 / 720 Output Total 1000 / 1000 Balance 137.5 / 137.5 340 / 740 720 / 720 Lab / Micro Data Result Diagrams: 07/06/21 05:40 07/06/21 05:40 Labs: Laboratory Results - last 24 hr 07/05/21 09:45: WBC 10.7, RBC 3.35 L, Hgb 9.5 L, Hct 32.3 L, MCV 96.4, MCH 28.4, MCHC 29.4 L, RDW Std Deviation 51.3 H, RDW Coeff of Lanre 14.4, Plt Count 456 H, MPV 10.1, Immature Gran % (Auto) 0.900, Neut % (Auto) 80.2 H, Lymph % (Auto) 5.6 L, [place] % (Auto) 7.5, Eos % (Auto) 5.6 H, Baso % (Auto) 0.2, Absolute Neuts (auto) 8.6 H, Absolute Lymphs (auto) 0.60 L, Differential Comment SCANNED 07/05/21 09:45: Sodium 140, Potassium 3.2 L, Chloride 108 H, Carbon Dioxide 24.0, Anion Gap 8, BUN 23 H, Creatinine 1.35 H, Estim Creat Clear Calc 30.51, Est GFR (MDRD) Af Amer 51 L, Est GFR (MDRD) Non-Af 42 L, BUN/Creatinine Ratio 17.0, Glucose 111 H, Calcium 8.7 07/06/21 05:40: WBC 7.2, RBC 3.02 L, Hgb 8.5 L, Hct 30.7 L, MCV 101.7 H D, MCH 28.1, MCHC 27.7 L D, RDW Std Deviation 54.0 H, RDW Coeff of Lanre 14.5, Plt Count 467 H, MPV 10.2, Immature Gran % (Auto) 0.800, Neut % (Auto) 65.6, Lymph % (Auto) 15.1 L, [place] % (Auto) 10.5 H, Eos % (Auto) 7.6 H, Baso % (Auto) 0.4, Absolute Neuts (auto) 4.7, Absolute Lymphs (auto) 1.08, Nucleated RBC % 0, Differential Comment SCANNED 07/06/21 05:40: Sodium 140, Potassium 3.4 L, Chloride 110 H, Carbon Dioxide 23.0, Anion Gap 7, BUN 22 H, Creatinine 1.12 H, Estim Creat Clear Calc 36.78, Est GFR (MDRD) Af Amer 62, Est GFR (MDRD) Non-Af 52 L, BUN/Creatinine Ratio 19.6, Glucose 102, Calcium 8.8 Physical Exam Const alert and no apparent distress Resp normal respiratory effort, no retractions, no use of accessory muscles and clear to auscultation bilaterally Cardio regular rate, regular rhythm, S1 normal heart sound and S2 normal heart sound Assessment & Plan Assessment/Plan (1) Fever: (2) Pneumonia: PLAN: 1. Pseudomonas pneumonia * recurrent * Cx on 06/29 showed horn-sensitive Pseudomonas, similiar to 05/22 * Fever, likely due to health associated pneumonia * fever has resolved * on IV meropenem. Change to levofloxacin 750 to complete 2 week course of abx. * blood cultures negative 2. Recent left hip replacement * she was reviewed by orthopedics who dont think the surgical site is the source of infection. * will monitor 3. Chronic conditions: * History of afib: on cardizem and flecainide. on eliquis * Hyperlipidemia: on statin * history of HFpEF: on furosemide 40mg bid. not in exacerbation * History of asthma: On montelukast. Breathing treatments bronchodilators. * History of hypothyroidism: On Synthroid. * Morbid obesity DVT prophylaxis: Not indicated as she is already on Eliquis. CODE STATUS: Full code
[2021-07-06] MEDS: Cholecalciferol (VIT D3) 25 MCG TABLET (1,000 UNITS) 50 MCG PO (08:01)
[2021-07-06] MEDS: Menthol/Lanolin/Calamine/Znox 113 GM Tube 1 APPLIC TOPICAL (10:33)
[2021-07-06] MEDS: APIXABAN 5 MG TABLET PO (10:34)
[2021-07-06] MEDS: dilTIAZem CD 180 MG Capsule PO (10:34)
[2021-07-06] MEDS: Potassium Chloride Oral Tablet 20 MEQ PO (10:34)
[2021-07-06] MEDS: Furosemide 40 MG Tablet PO (10:34)
[2021-07-06] MEDS: Nystatin Powder 15gm Bottle 1 APPLIC TOPICAL (10:35)
[2021-07-06] MEDS: guaiFENesin 1,200 MG Tablet 1200 MG PO (10:35)
[2021-07-06] MEDS: Lidocaine 5% Patch 1 PATCH TOPICAL (10:35)
[2021-07-06] MEDS: Pantoprazole Sodium 40 MG Tablet PO (10:36)
[2021-07-06] MEDS: Flecainide 100 MG Tablet 50 MG PO (10:36)
--- NOTE | 2021-07-06 11:41 | CASEMGMT ---
Addendum entered by Adrianna Littlejohn 07/06/21 14:43: Social Work Pt ready for discharge today. Orders faxed to TCU. RORY attempted to call pt sister to notify but VM is not set up. SW met with pt and notified of discharge plan. Was was speaking to sister on phone and notified her of d/c plan. AFSHAN [facility] Original Note: Social Work Pt is admitted from TCU. RORY met with pt and she plans to return to TCU for continued therapy prior to return home. Phone call to Carli in TCU and they are able to accept pt back when medically ready. Pt will need a negative covid test on day of discharge to return. Plan: TCU, when medically ready AFSHAN Rivers
--- NOTE | 2021-07-06 12:22 | TREXTCAR_ITS ---
Diet 07/04/21 09:55 Diet: Cardiac - Heart Healthy Food consistency:: Regular Liquid Consistency:: Regular/Thin Wound(s) left ant hip: Wound Type: Surgical Incision Therapies Weight Bearing: Full weight bearing Physical Therapy: Eval and Treat Occupational Therapy: Eval and Treat Problem/Diagnosis (1) Fever: Status: Acute (2) Pneumonia: Status: Acute Allergies/Procedures Done in Hospital Allergies adhesive Allergy (Verified 07/04/21 08:16) SKIN TEARS. PAPER TAPE OK SKIN TEARS. PAPER TAPE OK azithromycin [From Zithromax] Allergy (Verified 07/04/21 08:16) Rash cefuroxime sodium [From Zinacef] Allergy (Verified 07/04/21 08:16) Rash clindamycin Allergy (Verified 07/04/21 08:16) Hives nitrofurantoin macrocrystalline [From Macrodantin] Allergy (Verified 07/04/21 08:16) Rash Sulfa (Sulfonamide Antibiotics) Allergy (Verified 07/04/21 08:16) Rash atenolol Adverse Reaction (Severe, Verified 07/04/21 08:16) Peripheal edema & cough metoprolol [From Toprol XL] Adverse Reaction (Severe, Verified 07/04/21 08:16) Peripheral edema & cough duloxetine [From Cymbalta] Adverse Reaction (Intermediate, Verified 07/04/21 08:16) made me feel really sick Corticosteroids (Glucocorticoids) Adverse Reaction (Verified 07/04/21 08:16) Other INDUCED MYOPATHY oxycodone HCl [From Percocet] Adverse Reaction (Verified 07/04/21 08:16) Vomiting Type of Care/Length of Stay Estimated LOS: Convalescent Care Less Than 30 days Type of Care Needed: Skilled Rehab Potential: Fair Prognosis: Fair Additional Orders/Day of Discharge Day of Discharge: 07/06/21 Discharge Plan Admission Admit Date/Time: 07/04/21 08:48 Primary Reason for Your Visit: pseudomonal pneumonia Attending Provider: Joo Estes Primary Care Provider: Ervin Donnelly Consulting Providers: Aby Yarbrough Discharge Orders/Prescriptions Prescriptions: New lidocaine 5 % Adhesive Patch,Medicated 1 patch topical DAILY Qty: 0 RF: 0 nystatin [Nyamyc] 100,000 unit/gram Powder 1 applic topical BID Qty: 0 RF: 0 Remove Patch 1 patch topical DAILY@2200 Qty: 0 RF: 0 levofloxacin 750 mg tablet 750 mg PO Q24H Qty: 12 RF: 0 Continued famotidine 40 mg tablet 40 mg PO QHS RF: 0 esomeprazole magnesium [Nexium] 40 mg capsule,delayed release(DR/EC) 40 mg PO DAILY RF: 0 potassium chloride 20 mEq tablet,ER particles/crystals 20 meq PO BID RF: 0 lactobacillus combination no.8 3 billion cell capsule 1 cell PO DAILY RF: 0 levothyroxine 25 mcg tablet 25 mcg PO DAILY@0600 RF: 0 furosemide [Lasix] 40 mg tablet 40 mg PO BID RF: 0 cholecalciferol (vitamin D3) 50 mcg (2,000 unit) Capsule 50 mcg PO DAILY RF: 0 diltiazem HCl [Cardizem CD] 180 mg capsule,extended release 24hr 180 mg PO DAILY RF: 0 montelukast [Singulair] 10 mg tablet 10 mg PO QHS RF: 0 Eliquis 5 mg tablet 5 mg PO BID RF: 0 atorvastatin [Lipitor] 10 mg tablet 10 mg PO QHS RF: 0 sennosides-docusate sodium [Stool Softener-Stimulant Laxat] 8.6-50 mg tablet 2 tab PO BID RF: 0 acetaminophen 500 mg tablet 1,000 mg PO Q8 RF: 0 ferrous sulfate 325 MG tablet 325 mg PO QODAY RF: 0 ipratropium bromide 21 mcg (0.03 %) spray,non-aerosol 2 spray intranasal BID RF: 0 Advair HFA 230-21 mcg/actuation HFA aerosol inhaler 2 puff INHALATION BID RF: 0 Mucus Relief ER 1,200 mg tablet extended release 12hr 1,200 mg PO BID RF: 0 Ensure Surgery 0.08-1.4 gram-kcal/mL liquid 237 ml PO TIDCM RF: 0 albuterol sulfate 2.5 mg /3 mL (0.083 %) solution for nebulization 2.5 mg INHALATION Q4H PRN Qty: 180 RF: 6 flecainide 50 mg tablet 50 mg PO BID Qty: 180 RF: 3 Changed tramadol 50 mg Tablet 50 mg PO Q6H PRN PRN (Reason: Pain Score 4-10) 3 Days Qty: 10 RF: 0 Discontinued doxycycline hyclate 100 mg tablet 100 mg PO BID RF: 0 Referrals / Follow Up: Ervin Donnelly MD [Primary Care Provider] - Within 2 Weeks Pete Bazzi DO [STAFF PHYSICIAN] - 08/03/21 1:15 pm Nathaniel Reynoso MD [STAFF PHYSICIAN] - Within 2 Weeks Disposition Disposition (needs filled in before D/C Order can be placed): [facility]
--- NOTE | 2021-07-06 12:34 | DS.PCM_ITS ---
Providers Date of Admission: 07/04/21 Primary Care Physician: Dr. Ervin Donnelly MD Reason For Visit: PNEUMONIA Diagnosis Discharge Diagnosis (1) Fever: Status: Acute Code(s): R50.9 - Fever, unspecified (2) Pneumonia: Status: Acute Code(s): J18.9 - Pneumonia, unspecified organism Medications at Discharge Home Medications levothyroxine 25 mcg tablet 25 mcg PO DAILY@0600 01/04/20 albuterol sulfate 2.5 mg INHALATION Q4H PRN #180 vial 03/17/20 famotidine 40 mg tablet 40 mg PO QHS 04/02/20 cholecalciferol (vitamin D3) 50 mcg PO DAILY 09/19/20 furosemide [Lasix] 40 mg PO BID 09/19/20 esomeprazole magnesium 40 mg capsule,delayed release 40 mg PO DAILY cap 10/13/20 potassium chloride 20 mEq tablet,extended release(part/cryst) 20 meq PO BID tab 10/13/20 flecainide 50 mg tablet 50 mg PO BID #180 tab 02/19/21 lactobacillus combination no.8 3 billion cell capsule 1 cell PO DAILY 03/25/21 Eliquis 5 mg PO BID 04/01/21 diltiazem HCl [Cardizem CD] 180 mg PO DAILY 04/01/21 montelukast [Singulair] 10 mg PO QHS 04/01/21 Advair HFA 2 puff INHALATION BID 06/26/21 Ensure Surgery 237 ml PO TIDCM 06/26/21 Mucus Relief ER 1,200 mg PO BID 06/26/21 acetaminophen 1,000 mg PO Q8 06/26/21 atorvastatin [Lipitor] 10 mg PO QHS 06/26/21 ferrous sulfate 325 mg PO QODAY 06/26/21 ipratropium bromide 2 spray INTRANASAL BID 06/26/21 sennosides-docusate sodium [Stool Softener-Stimulant Laxat] 2 tab PO BID 06/26/21 Remove Patch 1 patch TOPICAL DAILY@2200 #0 07/06/21 levofloxacin 750 mg PO Q24H #12 tab 07/06/21 lidocaine 1 patch TOPICAL DAILY #0 ea 07/06/21 nystatin [Nyamyc] 1 applic TOPICAL BID #0 g 07/06/21 tramadol 50 mg PO Q6H PRN PRN 3 Days #10 tab 07/06/21 Hospital Course Operations None Procedures None Summary of Care Provided Minutes Spent on Discharge: 35 Hospital Course: 1. Pseudomonas pneumonia * recurrent * Cx on 06/29 showed horn-sensitive Pseudomonas, similiar to 05/22 * Fever, likely due to health associated pneumonia * fever has resolved * on IV meropenem. Change to levofloxacin 750 to complete 2 week course of abx. * blood cultures negative 2. Recent left hip replacement * she was reviewed by orthopedics who dont think the surgical site is the source of infection. * will monitor 3. Chronic conditions: * History of afib: on cardizem and flecainide. on eliquis * Hyperlipidemia: on statin * history of HFpEF: on furosemide 40mg bid. not in exacerbation * History of asthma: On montelukast. Breathing treatments bronchodilators. * History of hypothyroidism: On Synthroid. * Morbid obesity Weight / BMI Weight Weight: 102.557 kg Body Mass Index (BMI) 42.7 ABG / Lab / Microbiology Data Result Diagrams: 07/06/21 05:40 07/06/21 05:40 Laboratory: Laboratory Results - last 24 hr 07/06/21 05:40: WBC 7.2, RBC 3.02 L, Hgb 8.5 L, Hct 30.7 L, MCV 101.7 H D, MCH 28.1, MCHC 27.7 L D, RDW Std Deviation 54.0 H, RDW Coeff of Lanre 14.5, Plt Count 467 H, MPV 10.2, Immature Gran % (Auto) 0.800, Neut % (Auto) 65.6, Lymph % (Auto) 15.1 L, [place] % (Auto) 10.5 H, Eos % (Auto) 7.6 H, Baso % (Auto) 0.4, Absolute Neuts (auto) 4.7, Absolute Lymphs (auto) 1.08, Nucleated RBC % 0, Differential Comment SCANNED 07/06/21 05:40: Sodium 140, Potassium 3.4 L, Chloride 110 H, Carbon Dioxide 23.0, Anion Gap 7, BUN 22 H, Creatinine 1.12 H, Estim Creat Clear Calc 36.78, Est GFR (MDRD) Af Amer 62, Est GFR (MDRD) Non-Af 52 L, BUN/Creatinine Ratio 19.6, Glucose 102, Calcium 8.8 Meaningful Use Info Meaningful Use Diagnoses (Choose all that apply): None applicable Discharge Plan Admission Admit Date/Time: 07/04/21 08:48 Primary Reason for Your Visit: pseudomonal pneumonia Attending Provider: Joo Estes Primary Care Provider: Ervin Donnelly Consulting Providers: Aby Yarbrough Discharge Orders/Prescriptions Prescriptions: New lidocaine 5 % Adhesive Patch,Medicated 1 patch topical DAILY Qty: 0 RF: 0 nystatin [Nyamyc] 100,000 unit/gram Powder 1 applic topical BID Qty: 0 RF: 0 Remove Patch 1 patch topical DAILY@2200 Qty: 0 RF: 0 levofloxacin 750 mg tablet 750 mg PO Q24H Qty: 12 RF: 0 Continued famotidine 40 mg tablet 40 mg PO QHS RF: 0 esomeprazole magnesium [Nexium] 40 mg capsule,delayed release(DR/EC) 40 mg PO DAILY RF: 0 potassium chloride 20 mEq tablet,ER particles/crystals 20 meq PO BID RF: 0 lactobacillus combination no.8 3 billion cell capsule 1 cell PO DAILY RF: 0 levothyroxine 25 mcg tablet 25 mcg PO DAILY@0600 RF: 0 furosemide [Lasix] 40 mg tablet 40 mg PO BID RF: 0 cholecalciferol (vitamin D3) 50 mcg (2,000 unit) Capsule 50 mcg PO DAILY RF: 0 diltiazem HCl [Cardizem CD] 180 mg capsule,extended release 24hr 180 mg PO DAILY RF: 0 montelukast [Singulair] 10 mg tablet 10 mg PO QHS RF: 0 Eliquis 5 mg tablet 5 mg PO BID RF: 0 atorvastatin [Lipitor] 10 mg tablet 10 mg PO QHS RF: 0 sennosides-docusate sodium [Stool Softener-Stimulant Laxat] 8.6-50 mg tablet 2 tab PO BID RF: 0 acetaminophen 500 mg tablet 1,000 mg PO Q8 RF: 0 ferrous sulfate 325 MG tablet 325 mg PO QODAY RF: 0 ipratropium bromide 21 mcg (0.03 %) spray,non-aerosol 2 spray intranasal BID RF: 0 Advair HFA 230-21 mcg/actuation HFA aerosol inhaler 2 puff INHALATION BID RF: 0 Mucus Relief ER 1,200 mg tablet extended release 12hr 1,200 mg PO BID RF: 0 Ensure Surgery 0.08-1.4 gram-kcal/mL liquid 237 ml PO TIDCM RF: 0 albuterol sulfate 2.5 mg /3 mL (0.083 %) solution for nebulization 2.5 mg INHALATION Q4H PRN Qty: 180 RF: 6 flecainide 50 mg tablet 50 mg PO BID Qty: 180 RF: 3 Changed tramadol 50 mg Tablet 50 mg PO Q6H PRN PRN (Reason: Pain Score 4-10) 3 Days Qty: 10 RF: 0 Discontinued doxycycline hyclate 100 mg tablet 100 mg PO BID RF: 0 Referrals / Follow Up: Ervin Donnelly MD [Primary Care Provider] - Within 2 Weeks Pete Bazzi DO [STAFF PHYSICIAN] - 08/03/21 1:15 pm Nathaniel Reynoso MD [STAFF PHYSICIAN] - Within 2 Weeks Disposition Disposition (needs filled in before D/C Order can be placed): [facility] Facility Charges/Coding Visit Charges Inpatient E&M: 58335 Disch Hosp
== END 2021-07-06 15:49 | disposition skilled nursing facility (03) | DRG 178 ==
LOC: ED 08:13 → MS3 11:30
PROVIDERS: Admitting Provider Student in an Organized Health Care Education/Training Program; Emergency Provider Emergency Medicine; PCP Family Medicine
DX: J15.1 Pneumonia due to Pseudomonas (principal); J47.0 Bronchiectasis with acute lower respiratory infection; I50.32 Chronic diastolic (congestive) heart failure; Z68.41 Body mass index [BMI] 40.0-44.9, adult; I11.0 Hypertensive heart disease with heart failure; E11.9 Type 2 diabetes mellitus without complications; E66.01 Morbid (severe) obesity due to excess calories; B96.5 Pseudomonas (aeruginosa) (mallei) (pseudomallei) as the cause of diseases classified elsewhere; E03.9 Hypothyroidism, unspecified; E78.00 Pure hypercholesterolemia, unspecified; E78.5 Hyperlipidemia, unspecified; Z87.891 Personal history of nicotine dependence; Z51.5 Encounter for palliative care; Z66 Do not resuscitate; Z79.51 Long term (current) use of inhaled steroids; Z79.01 Long term (current) use of anticoagulants; Z96.642 Presence of left artificial hip joint
CPT/HCPCS: 36415; 71045; 73700; 80048; 80053; 83605; 85025; 85610; 85730; 87040; 87426; 93971; 94640; 97110; 97116; 97162; 97165; 97530; 97535; 99251; 99283; 99285; J2185; J7030; J7050; A4216; G0463

== ENCOUNTER 2021-07-06 16:04 | Inpatient (IN) | payer MEDICARE, OTHER, SELFPAY ==
[2021-07-06 16:10] VITALS: BP 118/57; PULSE 85; PULSE 86; RESP 16; RESP 18; TEMP 36.7; O2SAT 97; O2SAT 98; BMI 42.7
[2021-07-06] MEDS: guaiFENesin 1,200 MG Tablet 1200 MG PO (18:50)
[2021-07-06] MEDS: APIXABAN 5 MG TABLET PO (18:50)
[2021-07-06] MEDS: Flecainide 100 MG Tablet 50 MG PO (18:51)
[2021-07-06] MEDS: Furosemide 40 MG Tablet PO (18:51)
[2021-07-06] MEDS: Nystatin Powder 15gm Bottle 1 APPLIC TOPICAL (18:55)
[2021-07-06 19:25] VITALS: PULSE 80; RESP 18; O2SAT 98
[2021-07-06] MEDS: Budesonide Respules 0.5 MG/2 ML AMPUL.NEB. INHALATION (19:25)
[2021-07-06] MEDS: Ipratropium/Albuterol Sulfate 3 ML AMPUL.NEB INHALATION (19:25)
[2021-07-06] MEDS: traMADol 50 MG Tablet PO (19:59)
[2021-07-06] MEDS: Acetaminophen 500 MG Tablet 1000 MG PO (20:03)
[2021-07-06] MEDS: Atorvastatin Calcium 10 MG Tablet PO (20:03)
[2021-07-06] MEDS: Montelukast 10 MG Tablet PO (20:04)
[2021-07-06] MEDS: Famotidine 20 MG Tablet 40 MG PO (20:04)
--- NOTE | 2021-07-06 20:28 | HP.PCM_ITS ---
HPI - General General Date of Admission: 07/06/21 HPI Narrative 07/04/2021 LAURA SERRANO, is a 66 Female TCU resident status post left total hip replacement presented to [facility] Emergency Department. Fever, chills, rigors. 07/04/2021 Admit to Hospital. Meropenem IV for Pseudomonas Aeruginosa pneumonia. Orthopedics feels left hip incision not site of infection. 07/05/2021 Feeling better, fever and chills resolved. Gentle IV fluids for dehydration. 07/06/2021 Blood cultures negative. Finish treatment with Levaquin. 07/06/2021 Admit to TCU with debility, here for rehabilitation, strengthening, prior to dischage home alone. [facility] Medical History Abnormal chest CT Acute bronchiolitis Acute respiratory failure ALEXYS (acute kidney injury) Allergic rhinitis Anemia Anxiety Aspiration into airway Asthma Atrial fibrillation with rapid ventricular response Atrial tachycardia Back pain Benign essential HTN Bronchiectasis Bronchiectasis with (acute) exacerbation Cardiology follow-up encounter Cellulitis of right lower extremity Chronic diastolic heart failure Chronic respiratory failure Coarse tremors COLD (chronic obstructive lung disease) Congestive heart failure (CHF) COPD with acute exacerbation Diabetes Diabetes mellitus DVT (deep venous thrombosis) Easy bruising Former smoker Gastroesophageal reflux disease HCAP (healthcare-associated pneumonia) High cholesterol History of DVT (deep vein thrombosis) History of echocardiogram History of edema 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 History of renal disease History of stress test Hx pulmonary embolism Hyperlipidemia Hypertension Hypothyroidism Hypoxemia Injury of back Insomnia Kidney disease Lung nodule Migraine headache Morbid obesity MRSA pneumonia Obesity GAGAN (obstructive sleep apnea) Pain of left hip Paroxysmal atrial fibrillation Paroxysmal atrial tachycardia Pneumonia Precordial chest pain Pulmonary embolism PVD (peripheral vascular disease) Right foot pain Severe sepsis Shortness of breath on exertion Steroid myopathy Tachycardia Thrush, oral Umbilical hernia Venous thromboembolism (VTE) Walker as ambulation aid Weakness Wears glasses Home Medications levothyroxine 25 mcg tablet 25 mcg PO DAILY@0600 01/04/20 [History Last Taken 07/04/21 05:51] albuterol sulfate 2.5 mg INHALATION Q4H PRN #180 vial 03/17/20 [Rx Last Taken 07/03/21 19:16] famotidine 40 mg tablet 40 mg PO QHS 04/02/20 [History Last Taken 07/03/21 23:04] cholecalciferol (vitamin D3) 50 mcg PO DAILY 09/19/20 [History Last Taken 07/04/21 05:54] furosemide [Lasix] 40 mg PO BID 09/19/20 [History Last Taken 07/04/21 05:52] esomeprazole magnesium 40 mg capsule,delayed release 40 mg PO DAILY cap 10/13/20 [History Last Taken 07/04/21 05:52] potassium chloride 20 mEq tablet,extended release(part/cryst) 20 meq PO BID tab 10/13/20 [History Last Taken 07/03/21 07:56] flecainide 50 mg tablet 50 mg PO BID #180 tab 02/19/21 [Rx Last Taken 07/04/21 05:54] lactobacillus combination no.8 3 billion cell capsule 1 cell PO DAILY 03/25/21 [History Last Taken 07/04/21 06:03] Eliquis 5 mg PO BID 04/01/21 [History Last Taken 07/04/21 05:51] diltiazem HCl [Cardizem CD] 180 mg PO DAILY 04/01/21 [History Last Taken 07/04/21 05:52] montelukast [Singulair] 10 mg PO QHS 04/01/21 [History Last Taken 07/03/21 23:05] Advair HFA 2 puff INHALATION BID 06/26/21 [History Last Taken 07/04/21 05:53] Ensure Surgery 237 ml PO TIDCM 06/26/21 [History Last Taken Unknown] Mucus Relief ER 1,200 mg PO BID 06/26/21 [History Last Taken 07/04/21 05:51] acetaminophen 1,000 mg PO Q8 06/26/21 [History Last Taken 07/04/21 05:51] atorvastatin [Lipitor] 10 mg PO QHS 06/26/21 [History Last Taken 07/03/21 23:03] ferrous sulfate 325 mg PO QODAY 06/26/21 [History Last Taken 07/03/21 11:43] ipratropium bromide 2 spray INTRANASAL BID 06/26/21 [History Last Taken Unknown] sennosides-docusate sodium [Stool Softener-Stimulant Laxat] 2 tab PO BID 06/26/21 [History Last Taken Unknown] Remove Patch 1 patch TOPICAL DAILY@2200 07/06/21 [History Last Taken Unknown] levofloxacin 750 mg PO Q24H 07/06/21 [History Last Taken Unknown] lidocaine 1 patch TOPICAL DAILY 07/06/21 [History Last Taken Unknown] nystatin [Nyamyc] 1 applic TOPICAL BID 07/06/21 [History Last Taken Unknown] tramadol 50 mg PO Q6H PRN PRN 3 Days #10 tab 07/06/21 [Rx Last Taken Unknown] Allergy/AdvReac Type Severity Reaction Status Date / Time adhesive Allergy SKIN Verified 07/04/21 08:16 TEARS. PAPER TAPE OK azithromycin [From Zithromax] Allergy Rash Verified 07/04/21 08:16 cefuroxime sodium Allergy Rash Verified 07/04/21 08:16 [From Zinacef] clindamycin Allergy Hives Verified 07/04/21 08:16 nitrofurantoin Allergy Rash Verified 07/04/21 08:16 macrocrystalline [From Macrodantin] Sulfa (Sulfonamide Allergy Rash Verified 07/04/21 08:16 Antibiotics) atenolol AdvReac Severe Peripheal Verified 07/04/21 08:16 edema & cough metoprolol [From Toprol XL] AdvReac Severe Peripheral Verified 07/04/21 08:16 edema & cough duloxetine [From Cymbalta] AdvReac Intermediate made me Verified 07/04/21 08:16 feel really sick Corticosteroids AdvReac Other Verified 07/04/21 08:16 (Glucocorticoids) oxycodone HCl [From Percocet] AdvReac Vomiting Verified 07/04/21 08:16 Family History Mother Hypertension Diabetes Heart disease Pulmonary embolism Father Perforated ulcer Respiratory failure Sister Asthma Hypertension Surgical History H/O section H/O foot surgery H/O hernia repair H/O shoulder surgery H/O: hysterectomy History of appendectomy History of cardioversion (~12/2016) History of left heart catheterization Hx of vein stripping S/P hip replacement S/P hysterectomy Social History household members: none Smoking Status: Former smoker quit date: 02/14/75 pack-years: 3 second hand exposure: No alcohol intake: never substance use type: does not use caffeine: No what type of physical activity do you participate in: none ROS Constitutional Constitutional: Denies chills, fever(s) or weight gain ENT HEENT: Denies headache(s), nasal congestion or nasal discharge Cardiovascular Cardiovascular: Denies chest pain or palpitations Respiratory/Chest Respiratory/Chest: Denies cough, excessive phlegm production or shortness of breath with exertion Gastrointestinal Gastrointestinal: Denies abdominal pain, nausea or vomiting Genitourinary Genitourinary: Denies dysuria Musculoskeletal Musculoskeletal: Denies joint pain or joint swelling Integumentary Integumentary: Denies rash or wounds Neurologic Neurologic: Denies focal weakness, numbness or tingling Psychiatric Psychiatric: Denies anxiety, auditory hallucinations, depression, homicidal ideation or suicidal ideation Vital Signs Vital Signs Vital Signs: 07/06/21 16:10 07/06/21 19:25 Temperature 98.1 F Temperature Source Oral Pulse Rate 85 80 Respiratory Rate 16 18 Blood Pressure 118/57 L Blood Pressure Mean 77 Blood Pressure Source Monitor Blood Pressure Position Sitting Blood Pressure Location Right Arm Pulse Ox 97 98 Oxygen Delivery Method Room Air Room Air Weight Weight: 102.512 kg Body Mass Index (BMI) 42.7 Physical Exam Const alert General Appearance: cooperative HEENT normocephalic Eyes PERRL and EOMs intact bilaterally Neck supple, no JVD and no carotid bruits Resp normal respiratory effort, normal air movement and clear to auscultation bilaterally Cardio regular rate and regular rhythm GI normal to inspection, nondistended, normoactive bowel sounds, non-tender and non-distended Extremity normal capillary refill General Extremity: Negative for edema Skin no rashes or lesions noted General Skin Exam: no breakdown Psych affect normal Appearance: appropriate Assessment & Plan Assessment/Plan (1) Debility: (2) Pseudomonas pneumonia: (3) Gastroesophageal reflux disease: (4) Hypokalemia: (5) Allergic rhinitis: (6) Hypothyroidism: (7) Chronic diastolic congestive heart failure: (8) Vitamin D deficiency: (9) Iron deficiency anemia: (10) Atrial fibrillation: (11) Asthma: (12) Hyperlipidemia: PLAN: 66 year old female with below past medical history significant left total hip replacement hospitalized for pseudomonas aeruginosa pneumonia, admitted to TCU with debility, here for rehabilitation, strengthening, prior to discharge home alone. * Debility - PT/OT. * Pain - Tylenol 1000mg q8h, Tramadol 50mg q6h prn pain (4-10), Lidoderm 1 patch td daily. * Bowel - Senna/colace 2 tablets bid. * Adult immunization - Administer pneumonia vaccine, flu vaccine, covid19 vaccine as appropriate. * DVT prophylaxis - Not necessary, already on Eliquis. * Nutrition - Ensure Surgery 237ml po tidcm. * GERD (severe) - Pantoprazole 40mg daily, Famotidine 40mg daily. * Hypokalemia - KCL 20meq bid. * Hypothyroidism - Levothyroxine 25mcg daily. * Heart failure with preserve ejection fraction - Lasix 40mg bid. * Iron deficiency anemia - Ferrous sulfate 325mg every other day. * Atrial fibrillation - Diltiazem 180mg daily,Flecainide 50mg bid, Eliquis 5mg bid. * Asthma - Budesonide 0.5mg inhaled q12h, Singulair 10mg daily, Albuterol 2.5mg neb q4h prn, Duoneb 3ml q6h prn. * Hyperlipidemia - Atorvastatin 10mg qhs. * Congestion - Mucinex 1200mg bid. * Tinea Corporis - Nystatin powder topical bid. * P. Aeruginosa pneumonia - Levaquin 750mg q24h thru 07/18/2021.
[2021-07-07 00:30] VITALS: BP 133/71; PULSE 86; RESP 18; TEMP 36.2; O2SAT 98
--- NOTE | 2021-07-07 02:41 | NURSING ---
Right buttock noted to be shearing during assessment. N/O placed for Calmoseptine ointment BID
[2021-07-07 05:56] LABS: Absolute Lymphocyte Count 2.41 X10^3/uL (0.83-4.51); Absolute Neutrophil Count 3.6 X10^3/uL (2.0-7.7); Basophil# 0.02 X10^3/uL; Basophil% 0.3 % (0-1); Eosinophil# 0.59 X10^3/uL; Eosinophils% 7.9 % (0-5); Hematocrit 28.1 % (37-47); Hemoglobin 8.4 g/dL (12.0-15.0); Lymphocyte # 2.41 X10^3/ul (0.83-4.51); Lymphocyte % 32.3 % (19-41); Mean Corp Hgb Conc 29.9 g/dL (32-36); Mean Corpuscular Hgb 28.3 pg (27.0-32.0); Mean Corpuscular Volume 94.6 fL (81-99); Mean Platelet Vol. 9.9 fl (6.2-12.0); Monocyte# 0.82 X10^3/uL; NRBC Flagged by Analyzer 0 % (0-5); Neutrophil # 3.56 X10^3/uL (2.7-7.7); Neutrophil % 47.6 % (47-70); POSITIVE MORPHOLOGY YES; Platelet Count 506 K/mm3 (150-450); RBC Distribution Width CV 14.2 % (11.6-14.6); RBC Distribution Width SD 49.3 fl (35.1-43.9); Red Blood Count 2.97 M/mm3 (4.2-5.4); White Blood Count 7.5 K/mm3 (4.4-11.0)
[2021-07-07] MEDS: Flecainide 100 MG Tablet 50 MG PO ×2 (06:19→17:35)
[2021-07-07] MEDS: Levothyroxine 25 MCG TABLET PO (06:20)
[2021-07-07] MEDS: levoFLOXacin 750 MG Tablet PO (06:20)
[2021-07-07] MEDS: guaiFENesin 1,200 MG Tablet 1200 MG PO ×2 (06:21→17:33)
[2021-07-07] MEDS: APIXABAN 5 MG TABLET PO ×2 (06:21→17:33)
[2021-07-07] MEDS: Pantoprazole Sodium 40 MG Tablet PO (06:21)
[2021-07-07] MEDS: Furosemide 40 MG Tablet PO ×2 (06:21→17:37)
[2021-07-07] MEDS: Acetaminophen 500 MG Tablet 1000 MG PO ×3 (06:22→22:13)
[2021-07-07 06:24] LABS: Anion Gap 8 (5-15); BUN 20 mg/dL (7-18); BUN/Creat Ratio 17.2 RATIO (10-20); Calcium,Total 8.8 mg/dL (8.5-10.1); Chloride 110 mmol/L (98-107); Creatinine, Serum 1.16 mg/dL (0.55-1.02); EST Glomerular Filtration Rate 50 mL/min (>60); Est Glom Filt Rate - Afr Amer 60 mL/min (>60); Estimated Creatinine Clearance 35.51 ml/min; Glucose 98 mg/dL (74-106); Potassium 3.3 mmol/L (3.5-5.1); Sodium Level 143 mmol/L (136-145)
[2021-07-07] MEDS: Menthol/Lanolin/Calamine/Znox 113 GM Tube 1 APPLIC TOPICAL ×2 (06:29→17:36)
[2021-07-07 06:30] LABS: Differential Indicated SCAN CRITERIA MET
[2021-07-07] MEDS: Nystatin Powder 15gm Bottle 1 APPLIC TOPICAL (06:30)
[2021-07-07 06:35] LABS: Differential Comment SCANNED
[2021-07-07 08:00] VITALS: PULSE 80; RESP 18; O2SAT 95
[2021-07-07] MEDS: Ipratropium/Albuterol Sulfate 3 ML AMPUL.NEB INHALATION ×3 (08:00→19:25)
[2021-07-07] MEDS: Potassium Chloride Oral Tablet 20 MEQ 40 MEQ PO (08:16)
[2021-07-07] MEDS: Ensure Surgery 237 ML LIQUID PO ×3 (08:17→17:33)
[2021-07-07] MEDS: Potassium Chloride Oral Tablet 20 MEQ PO ×2 (08:18→17:33)
[2021-07-07] MEDS: Gabapentin 100 MG Capsule PO ×2 (08:21→17:38)
--- NOTE | 2021-07-07 08:36 | NURSING ---
Pt is supposed to have Ortho F/u appointment with [facility] on 07/09. When pt was asked if she had transportation set up or if she needed staff to find transport for her she stated that she does not want to pay for transport and the person she was going to have take her is out of town right now. She stated she would talk with her sister and would probably have to reschedule the appointment for another day.
--- NOTE | 2021-07-07 09:53 | CASEMGMT ---
Social Work Met with patient. Advised of admitting on day of Medicare benefit. Confirmed no changes to previous admit assessment/code status/MOLST form. SW to follow for DC plans. MARYURI KuhnW
[2021-07-07] MEDS: Tuberculin,Purif.prot.deriv. 50 TU/ML Vial 0.1 ML ID (10:07)
[2021-07-07] MEDS: Lidocaine 5% Patch 1 PATCH TOPICAL (10:07)
[2021-07-07] MEDS: Budesonide Respules 0.5 MG/2 ML AMPUL.NEB. INHALATION ×2 (10:43→19:25)
[2021-07-07 13:50] VITALS: PULSE 86; RESP 18
--- NOTE | 2021-07-07 14:44 | CHAPLAIN ---
Type of Pastoral Visit ___ Initial Visit ___ Follow-up Visit ___ On-call Visit ___ General Patient Visit ___ Spiritual Assessment ___ Family Conference ___ Bereavement ___ Rapid Response ___ Code Blue ___ Other (describe below) Pastoral Care Referral From ___ Patient ___ Family ___ Nurse ___ Physician ___ Librarian Special Collections ___ Trust Vault Clerk ___ Other (describe below) Sacrament/Intervention ___ Active listening ___ Anointing ___ Taoist ___ Bereavement ___ Communion ___ Mary Ann exploration ___ ___ Life review ___ Prayer ___ Reconciliation ___ Sacrament of Sick ___ Supportive presence ___ Wedding ___ Other (describe below) Pastoral Comments patient was not available at time of attempted visit
--- NOTE | 2021-07-07 15:17 | PCM.PN.RX ---
Progress Note - Pharmacy Subjective: TCU Admission. Resident is a 66 YOF admitted to the hospital 07/04/21 for fevers/chills/rigor and was found to have pansensitive Pseudomonas aeruginosa pneumonia. Treated with Meropenem as an inpatient, transitioned to levofloxacin at discharge. Admitted to TCU with debility for rehabilitation and strengthening prior to discharge. Objective: Allergies adhesive Allergy (Verified 07/04/21 08:16) SKIN TEARS. PAPER TAPE OK SKIN TEARS. PAPER TAPE OK azithromycin [From Zithromax] Allergy (Verified 07/04/21 08:16) Rash cefuroxime sodium [From Zinacef] Allergy (Verified 07/04/21 08:16) Rash clindamycin Allergy (Verified 07/04/21 08:16) Hives nitrofurantoin macrocrystalline [From Macrodantin] Allergy (Verified 07/04/21 08:16) Rash Sulfa (Sulfonamide Antibiotics) Allergy (Verified 07/04/21 08:16) Rash atenolol Adverse Reaction (Severe, Verified 07/04/21 08:16) Peripheal edema & cough metoprolol [From Toprol XL] Adverse Reaction (Severe, Verified 07/04/21 08:16) Peripheral edema & cough duloxetine [From Cymbalta] Adverse Reaction (Intermediate, Verified 07/04/21 08:16) made me feel really sick Corticosteroids (Glucocorticoids) Adverse Reaction (Verified 07/04/21 08:16) Other INDUCED MYOPATHY oxycodone HCl [From Percocet] Adverse Reaction (Verified 07/04/21 08:16) Vomiting Current Medications Generic Name Dose Route Start Last Admin Trade Name Freq PRN Reason Stop Dose Admin Acetaminophen 1,000 mg 07/06/21 22:00 07/07/21 13:16 Acetaminophen 500 Mg Tablet PO 1,000 mg Q8 MIHAI Administration Albuterol Sulfate 2.5 mg 07/06/21 16:30 Albuterol 2.5 Mg/3 Ml Vial.Neb. INHALATION Q4H PRN PRN wheeze Albuterol/Ipratropium 3 ml 07/06/21 18:00 07/07/21 08:00 Ipratropium/Albuterol Sulfate 3 Ml Ampul.Neb INHALATION 3 ml Q6HWA.RT MIHAI Administration Apixaban 5 mg 07/06/21 18:00 07/07/21 06:21 Apixaban 5 Mg Tablet PO 5 mg BID MIHAI Administration Atorvastatin Calcium 10 mg 07/06/21 22:00 07/06/21 20:03 Atorvastatin Calcium 10 Mg Tablet PO 10 mg QHS [facility] Administration Budesonide 0.5 mg 07/06/21 18:00 07/07/21 10:43 Budesonide Respules 0.5 Mg/2 Ml Ampul.Neb. INHALATION 0.5 mg Q12H.RT MIHAI Administration Calamine/Phenol 1 applic 07/07/21 06:00 07/07/21 06:29 Menthol/Lanolin/Calamine/Znox 113 Gm Tube TOPICAL 1 applic BID [facility] Administration Protocol Diltiazem HCl 180 mg 07/07/21 06:00 07/07/21 06:30 Diltiazem Cd 180 Mg Capsule PO Not Given DAILY [facility] Enteral Nutritional Formula 237 ml 07/06/21 17:45 07/07/21 13:18 Ensure Surgery 237 Ml Liquid PO 237 ml TIDCM [facility] Administration Famotidine 40 mg 07/06/21 22:00 07/06/21 20:04 Famotidine 20 Mg Tablet PO 40 mg QHS [facility] Administration Ferrous Sulfate 325 mg 07/08/21 17:00 Ferrous Sulfate 325 Mg Tablet PO QODAY@1700 [facility] Flecainide Acetate 50 mg 07/06/21 18:00 07/07/21 06:19 Flecainide 100 Mg Tablet PO 50 mg BID [facility] Administration Furosemide 40 mg 07/06/21 18:00 07/07/21 06:21 Furosemide 40 Mg Tablet PO 40 mg BID [facility] Administration Gabapentin 100 mg 07/07/21 08:00 07/07/21 08:21 Gabapentin 100 Mg Capsule PO 100 mg BIDCM [facility] Administration Guaifenesin 1,200 mg 07/06/21 18:00 07/07/21 06:21 Guaifenesin 1,200 Mg Tablet PO 1,200 mg BID [facility] Administration Levofloxacin 750 mg 07/07/21 06:00 07/07/21 06:20 Levofloxacin 750 Mg Tablet PO 07/18/21 06:01 750 mg Q24H MIHAI Administration Levothyroxine Sodium 25 mcg 07/07/21 06:00 07/07/21 06:20 Levothyroxine 25 Mcg Tablet PO 25 mcg DAILY@0600 [facility] Administration Lidocaine 1 patch 07/07/21 10:00 07/07/21 10:07 Lidocaine 5% Patch TOPICAL 1 patch DAILY@1000 [facility] Administration Protocol Montelukast Sodium 10 mg 07/06/21 22:00 07/06/21 20:04 Montelukast 10 Mg Tablet PO 10 mg QHS [facility] Administration Nystatin 1 applic 07/06/21 18:00 07/07/21 06:30 Nystatin Powder 15gm Bottle TOPICAL 1 applic BID [facility] Administration Protocol Pantoprazole Sodium 40 mg 07/07/21 06:00 07/07/21 06:21 Pantoprazole Sodium 40 Mg Tablet PO 40 mg DAILY [facility] Administration Potassium Chloride 20 meq 07/07/21 08:00 07/07/21 08:18 Potassium Chloride Oral Tablet 20 Meq PO 20 meq BIDCM [facility] Administration Senna/Docusate Sodium 2 tablet 07/06/21 18:00 07/07/21 06:30 Senna/Docusate Sodium 1 Tablet PO Not Given BID [facility] Tramadol HCl 50 mg 07/06/21 16:24 07/06/21 19:59 Tramadol 50 Mg Tablet PO 50 mg Q6H PRN PRN Administration Pain Score 4-10 Problem List (Last Reviewed 07/06/21 @ 20:[address] Jose Angel Kaur MD) Hyperlipidemia (Acute) Asthma (Acute) Atrial fibrillation (Acute) Iron deficiency anemia (Acute) Vitamin D deficiency (Acute) Chronic diastolic congestive heart failure (Chronic) Hypothyroidism (Acute) Allergic rhinitis (Acute) Hypokalemia (Acute) Gastroesophageal reflux disease (Acute) Pseudomonas pneumonia (Acute) Debility (Acute) Vital Signs Temp Pulse Resp BP Pulse Ox 97.1 F L 80 18 133/71 H 95 07/07/21 00:30 07/07/21 08:00 07/07/21 08:00 07/07/21 00:30 07/07/21 08:00 Oxygen Delivery Method Room Air Weight: 102.149 kg Body Mass Index (BMI) 42.7 Sodium 143 mmol/L (136-145) 07/07/21 05:17 Potassium 3.3 mmol/L (3.5-5.1) L 07/07/21 05:17 Chloride 110 mmol/L (98-107) H 07/07/21 05:17 Carbon Dioxide 25.0 mmol/L (21.0-32.0) 07/07/21 05:17 Anion Gap 8 (5-15) 07/07/21 05:17 BUN 20 mg/dL (7-18) H 07/07/21 05:17 Creatinine 1.16 mg/dL (0.55-1.02) H 07/07/21 05:17 Est GFR (MDRD) Af Amer 60 mL/min (>60) 07/07/21 05:17 Est GFR (MDRD) Non-Af 50 mL/min (>60) L 07/07/21 05:17 BUN/Creatinine Ratio 17.2 RATIO (10-20) 07/07/21 05:17 Glucose 98 mg/dL (74-106) 07/07/21 05:17 Assessment/Plan: 1. Pain: acetaminophen 1000mg PO Q8, tramadol 50mg PO Q6H PRN pain (4-10) and lidocaine 5% patch topically daily. Resident has had 1 dose of tramadol for a pain rating of 7/10 in the hip. Please continue to monitor for increased pain, PRN usage, constipation, respiratory depression, renal function and skin irritation. 2. P. aeruginosa pneumonia: levofloxacin 750mg PO Q24 thru 07/18/21. Resident is growing a pansensitive P. aeruginosa which makes levofloxacin the only oral option. Dosed appropriately based on CrCl of 51.6 ml/min using adjusted body weight. Please continue to monitor for S/S of infection, tendon pain and renal function. It was documented that resident has been experiencing diarrhea which is common with fluoroquinolones (as they can cause C. difficile infections) and pantoprazole. Please continue to monitor for continued diarrhea. 3. Atrial fibrillation/HFpEF: diltiazem 180mg PO daily, flecainide 50mg PO BID, apixaban 5mg PO BID and furosemide 40mg PO BID. Please continue to monitor HR (last 80), BP (last 133/71), S/S of bleeding/stroke/DVT, hemoglobin (last 8.4g/dL), swelling, potassium (last 3.3mmol/L), sodium (last 143mmol/L) and renal function. The use of levofloxacin and flecainide can increase the risk of QTc prolongation. Please continue to monitor QTc periodically while resident is taking levofloxacin and flecainide concomitantly. 4. GERD (severe): pantoprazole 40mg PO daily and famotidine 40mg PO QHS. Please continue to monitor for S/S of GERD and renal function. Discussed in previous TCU admission note. 5. Iron deficiency anemia: ferrous sulfate 325mg PO every other day. Please continue to monitor for dark stools, constipation and hemoglobin. 6. Hypothyroidism: levothyroxine 25mcg PO daily. Please continue to monitor for S/S of hypo/hyperthyroidism and TSH at least annually (last 04/09/21). 7. Hyperlipidemia: atorvastatin 10mg PO QHS. Please continue to monitor lipid panel/LFTs at least annually (last 04/09/21) and for muscle pain. 8. Asthma: budesonide 0.5mg inhalation Q12.RT, albuterol 2.5mg inhalation Q4H PRN wheezing, Duoneb 3mL inhalation Q6HWA.RT and montelukast 10mg PO QHS. Please continue to monitor for S/S of asthma, wheezing HR and glucose (last 98mg/dL). Resident has not required any doses of albuterol. 9. Hypokalemia: potassium chloride 20mEq PO BID. Please continue to monitor for muscle pain/weakness and potassium level (last 3.3mmol/L). 10. Congestion: guaifenesin 1200mg PO BID. Please continue to monitor for congestion. Psychotropic Medications: None *Medications Irregularities: 1. I did not see a documented indication for gabapentin 100mg PO BIDCM. Please consider adding an indication if medication is medically necessary. Thanks. *Bowel Regimen: senna/docusate 2T PO BID. Please consider changing to PRN constipation. Resident has refused doses due to diarrhea (resident is on a fluoroquinolone). Thanks. Date of Note:: 07/07/21
[2021-07-07 16:00] VITALS: BP 117/56; PULSE 90; RESP 14; TEMP 36.6; O2SAT 95
[2021-07-07 19:25] VITALS: PULSE 89; RESP 12
[2021-07-07 22:00] VITALS: BP 121/67; PULSE 90; RESP 18; TEMP 36.3; O2SAT 98
[2021-07-07] MEDS: Famotidine 20 MG Tablet 40 MG PO (22:13)
[2021-07-07] MEDS: Atorvastatin Calcium 10 MG Tablet PO (22:13)
[2021-07-07] MEDS: Montelukast 10 MG Tablet PO (22:13)
[2021-07-08 06:05] LABS: Anion Gap 6 (5-15); BUN 27 mg/dL (7-18); BUN/Creat Ratio 18.1 RATIO (10-20); Calcium,Total 9.1 mg/dL (8.5-10.1); Chloride 109 mmol/L (98-107); Creatinine, Serum 1.49 mg/dL (0.55-1.02); EST Glomerular Filtration Rate 37 mL/min (>60); Est Glom Filt Rate - Afr Amer 45 mL/min (>60); Estimated Creatinine Clearance 27.65 ml/min; Glucose 120 mg/dL (74-106); Potassium 3.5 mmol/L (3.5-5.1); Sodium Level 141 mmol/L (136-145)
[2021-07-08 06:27] VITALS: PULSE 92; RESP 16
[2021-07-08] MEDS: Budesonide Respules 0.5 MG/2 ML AMPUL.NEB. INHALATION ×2 (06:27→18:53)
[2021-07-08] MEDS: Ipratropium/Albuterol Sulfate 3 ML AMPUL.NEB INHALATION ×3 (06:27→18:53)
[2021-07-08] MEDS: Menthol/Lanolin/Calamine/Znox 113 GM Tube 1 APPLIC TOPICAL ×2 (06:55→21:11)
[2021-07-08] MEDS: Flecainide 100 MG Tablet 50 MG PO ×2 (06:56→17:48)
[2021-07-08] MEDS: Levothyroxine 25 MCG TABLET PO (06:56)
[2021-07-08] MEDS: Acetaminophen 500 MG Tablet 1000 MG PO ×3 (06:56→21:15)
[2021-07-08] MEDS: guaiFENesin 1,200 MG Tablet 1200 MG PO ×2 (06:57→17:47)
[2021-07-08] MEDS: dilTIAZem CD 180 MG Capsule PO (06:57)
[2021-07-08] MEDS: Pantoprazole Sodium 40 MG Tablet PO (06:57)
[2021-07-08] MEDS: Furosemide 40 MG Tablet PO ×2 (06:57→17:48)
[2021-07-08] MEDS: APIXABAN 5 MG TABLET PO ×2 (06:58→17:50)
[2021-07-08] MEDS: levoFLOXacin 750 MG Tablet PO (06:58)
[2021-07-08] MEDS: Nystatin Powder 15gm Bottle 1 APPLIC TOPICAL (07:03)
[2021-07-08 07:06] VITALS: BP 109/52; PULSE 92; RESP 16; TEMP 36.4; O2SAT 96
[2021-07-08] MEDS: Potassium Chloride Oral Tablet 20 MEQ PO ×2 (08:49→17:51)
[2021-07-08] MEDS: Gabapentin 100 MG Capsule PO ×2 (08:52→17:54)
[2021-07-08] MEDS: Lidocaine 5% Patch 1 PATCH TOPICAL (08:55)
--- NOTE | 2021-07-08 11:28 | NURSING ---
PT STATED SHE CANCELED APPOINTMENT DUE TO NO ONE COULD TAKE HER AND PT STATED SHE DIDNT WANT TO PAY FOR TRANSPORT. PT ALSO STATED SHE HAD SOME CLOTHES MISSING AFTER BEING TRANSFERRED TO TCU ON Tuesday07/04/21. THIS NURSE FOUND [facility] BELONGING [facility]APER AND CLOTHES SHE STATED THAT WAS MISSING WAS ON SHEET. NO BELONGING PAPER WAS FILLED OUT OR DOCUMENTED ON TCU ON HER RETURN. THIS NURSE CALLED [facility] AND MADE THEM A WEAR OF MISSING CLOTHING. RN AWARE
[2021-07-08 13:17] VITALS: PULSE 88; RESP 20
[2021-07-08 15:51] VITALS: BP 121/67; PULSE 87; RESP 16; TEMP 36.7; O2SAT 98
[2021-07-08] MEDS: Ferrous Sulfate 325 MG Tablet PO (17:51)
[2021-07-08 18:53] VITALS: PULSE 88; RESP 18
--- NOTE | 2021-07-08 20:58 | CPS ---
Pt. used home chest vest; 30 minutes
[2021-07-08 21:00] VITALS: BP 144/64; PULSE 94; RESP 18; TEMP 36.4; O2SAT 97
[2021-07-08] MEDS: Famotidine 20 MG Tablet 40 MG PO (21:15)
[2021-07-08] MEDS: Montelukast 10 MG Tablet PO (21:15)
[2021-07-08] MEDS: Atorvastatin Calcium 10 MG Tablet PO (21:16)
[2021-07-09 05:00] VITALS: BP 118/72; PULSE 76; RESP 16; TEMP 36.2; O2SAT 95
[2021-07-09] MEDS: Flecainide 100 MG Tablet 50 MG PO ×2 (06:26→18:07)
[2021-07-09] MEDS: levoFLOXacin 750 MG Tablet PO (06:26)
[2021-07-09] MEDS: guaiFENesin 1,200 MG Tablet 1200 MG PO ×2 (06:27→18:07)
[2021-07-09] MEDS: Levothyroxine 25 MCG TABLET PO (06:27)
[2021-07-09] MEDS: Pantoprazole Sodium 40 MG Tablet PO (06:27)
[2021-07-09] MEDS: dilTIAZem CD 180 MG Capsule PO (06:27)
[2021-07-09] MEDS: Furosemide 40 MG Tablet PO ×2 (06:27→18:07)
[2021-07-09] MEDS: APIXABAN 5 MG TABLET PO ×2 (06:27→18:07)
[2021-07-09] MEDS: Acetaminophen 500 MG Tablet 1000 MG PO ×3 (06:27→20:10)
[2021-07-09] MEDS: Menthol/Lanolin/Calamine/Znox 113 GM Tube 1 APPLIC TOPICAL ×2 (06:28→18:06)
[2021-07-09] MEDS: Nystatin Powder 15gm Bottle 1 APPLIC TOPICAL (06:28)
[2021-07-09 07:52] VITALS: PULSE 87; RESP 20
[2021-07-09] MEDS: Ipratropium/Albuterol Sulfate 3 ML AMPUL.NEB INHALATION (07:53)
[2021-07-09] MEDS: Budesonide Respules 0.5 MG/2 ML AMPUL.NEB. INHALATION (07:53)
[2021-07-09] MEDS: Potassium Chloride Oral Tablet 20 MEQ PO ×2 (09:10→18:05)
[2021-07-09] MEDS: Gabapentin 100 MG Capsule PO ×2 (09:12→18:10)
[2021-07-09] MEDS: Lidocaine 5% Patch 1 PATCH TOPICAL (09:48)
[2021-07-09] MEDS: BACITRACIN 15 GM Tube 1 APPLIC TOPICAL ×2 (09:50→20:09)
--- NOTE | 2021-07-09 12:34 | CHAPLAIN ---
Type of Pastoral Visit _x__ Initial Visit ___ Follow-up Visit ___ On-call Visit ___ General Patient Visit ___ Spiritual Assessment ___ Family Conference ___ Bereavement ___ Rapid Response ___ Code Blue ___ Other (describe below) Pastoral Care Referral From _x__ Patient ___ Family ___ Nurse ___ Physician ___ Director Of Hotel ___ Environmental Field Team Member ___ Other (describe below) Sacrament/Intervention _x__ Active listening ___ Anointing ___ Oriental Orthodox ___ Bereavement ___ Communion ___ Mary Ann exploration ___ ___ Life review ___ Prayer ___ Reconciliation ___ Sacrament of Sick _x__ Supportive presence ___ Wedding ___ Other (describe below) Pastoral Comments
--- NOTE | 2021-07-09 14:09 | MDS.RN ---
Pain interview for gilmar 07/13/21 completed.
[2021-07-09 14:39] VITALS: BP 130/58; PULSE 115; RESP 20; TEMP 37.4; O2SAT 96
[2021-07-09 19:50] VITALS: RESP 16; O2SAT 94
[2021-07-09] MEDS: Famotidine 20 MG Tablet 40 MG PO (20:09)
[2021-07-09] MEDS: Montelukast 10 MG Tablet PO (20:09)
[2021-07-09] MEDS: Atorvastatin Calcium 10 MG Tablet PO (20:10)
[2021-07-09 20:27] VITALS: PULSE 84; RESP 18
[2021-07-10] VITALS (7 sets, daily range): BP systolic 108–111; BP diastolic 55–63; PULSE 80–93; RESP 16–20; TEMP 36.5–36.8; O2SAT 98
[2021-07-10] MEDS: Furosemide 40 MG Tablet PO ×2 (06:52→14:16)
[2021-07-10] MEDS: dilTIAZem CD 180 MG Capsule PO (06:52)
[2021-07-10] MEDS: APIXABAN 5 MG TABLET PO ×2 (06:53→17:43)
[2021-07-10] MEDS: levoFLOXacin 750 MG Tablet PO (06:53)
[2021-07-10] MEDS: Flecainide 100 MG Tablet 50 MG PO ×2 (06:53→17:41)
[2021-07-10] MEDS: Levothyroxine 25 MCG TABLET PO (06:53)
[2021-07-10] MEDS: Acetaminophen 500 MG Tablet 1000 MG PO ×3 (06:53→20:50)
[2021-07-10] MEDS: guaiFENesin 1,200 MG Tablet 1200 MG PO ×2 (06:53→17:43)
[2021-07-10] MEDS: Pantoprazole Sodium 40 MG Tablet PO (06:53)
[2021-07-10] MEDS: Ipratropium/Albuterol Sulfate 3 ML AMPUL.NEB INHALATION ×3 (07:40→19:25)
[2021-07-10] MEDS: Budesonide Respules 0.5 MG/2 ML AMPUL.NEB. INHALATION ×2 (07:40→19:25)
[2021-07-10] MEDS: Lidocaine 5% Patch 1 PATCH TOPICAL (09:01)
[2021-07-10] MEDS: Gabapentin 100 MG Capsule PO ×2 (09:01→17:41)
[2021-07-10] MEDS: Potassium Chloride Oral Tablet 20 MEQ PO ×2 (09:01→17:43)
[2021-07-10] MEDS: BACITRACIN 15 GM Tube 1 APPLIC TOPICAL ×2 (09:07→17:44)
[2021-07-10] MEDS: Nystatin Powder 15gm Bottle 1 APPLIC TOPICAL ×2 (09:08→17:45)
[2021-07-10] MEDS: Menthol/Lanolin/Calamine/Znox 113 GM Tube 1 APPLIC TOPICAL ×2 (09:08→17:45)
--- NOTE | 2021-07-10 14:56 | CASEMGMT ---
Social Work BIMS and PHQ-9 completed for MDS assessment. Zainab Murillo, MAP AND CHART MOUNTER GROUND CREW LINES PERSON
[2021-07-10] MEDS: Ferrous Sulfate 325 MG Tablet PO (17:41)
[2021-07-10] MEDS: Senna/Docusate Sodium 1 Tablet 2 TABLET PO (17:41)
[2021-07-10] MEDS: Atorvastatin Calcium 10 MG Tablet PO (20:48)
[2021-07-10] MEDS: Famotidine 20 MG Tablet 40 MG PO (20:48)
[2021-07-10] MEDS: Montelukast 10 MG Tablet PO (20:49)
--- NOTE | 2021-07-11 00:34 | NURSING ---
Pt called out with c/o increase drainage from surgical incision to Left Hip. Moderate amount of yellow/brown drainage seen on pillowcase under abd fold along with minimal amounts of blood. Surgical incision at the proximal end to medial thigh is reddened, and has two open areas. One is smaller only measuring at about 0.5 cm in length x 0.2cm in width. The larger opening is 1.5 cm in length x 0.5 cm in width. Both areas appears to have slough. Cleansed, and applied adaptic with ABD at this time. Distal end of incision still has steri strips intact with no redness noted. Will assess in the morning. Pt appreciative and now resting in bed with ice on hip. Call light within reach.
[2021-07-11 05:00] VITALS: BP 117/56; PULSE 83; RESP 18; TEMP 36.6; O2SAT 98
[2021-07-11] MEDS: APIXABAN 5 MG TABLET PO ×2 (06:38→17:00)
[2021-07-11] MEDS: Pantoprazole Sodium 40 MG Tablet PO (06:38)
[2021-07-11] MEDS: Levothyroxine 25 MCG TABLET PO (06:38)
[2021-07-11] MEDS: Flecainide 100 MG Tablet 50 MG PO ×2 (06:38→17:00)
[2021-07-11] MEDS: dilTIAZem CD 180 MG Capsule PO (06:39)
[2021-07-11] MEDS: guaiFENesin 1,200 MG Tablet 1200 MG PO ×2 (06:39→17:00)
[2021-07-11] MEDS: Nystatin Powder 15gm Bottle 1 APPLIC TOPICAL ×2 (06:39→17:03)
[2021-07-11] MEDS: Menthol/Lanolin/Calamine/Znox 113 GM Tube 1 APPLIC TOPICAL ×2 (06:39→17:00)
[2021-07-11] MEDS: Furosemide 40 MG Tablet PO ×2 (06:39→16:15)
[2021-07-11] MEDS: levoFLOXacin 750 MG Tablet PO (06:39)
[2021-07-11] MEDS: Acetaminophen 500 MG Tablet 1000 MG PO ×3 (06:39→20:05)
[2021-07-11 07:33] VITALS: PULSE 98; RESP 20; O2SAT 99
[2021-07-11] MEDS: Budesonide Respules 0.5 MG/2 ML AMPUL.NEB. INHALATION ×2 (07:33→19:30)
[2021-07-11] MEDS: Ipratropium/Albuterol Sulfate 3 ML AMPUL.NEB INHALATION ×3 (07:33→19:30)
[2021-07-11] MEDS: Potassium Chloride Oral Tablet 20 MEQ PO ×2 (08:43→16:13)
[2021-07-11] MEDS: Lidocaine 5% Patch 1 PATCH TOPICAL (08:43)
[2021-07-11] MEDS: Gabapentin 100 MG Capsule PO ×2 (08:46→16:12)
[2021-07-11] MEDS: BACITRACIN 15 GM Tube 1 APPLIC TOPICAL ×2 (11:11→16:59)
[2021-07-11 13:30] VITALS: PULSE 75; RESP 18
[2021-07-11 16:17] VITALS: BP 107/64; PULSE 87; RESP 16; TEMP 36.7; O2SAT 98
[2021-07-11 19:30] VITALS: PULSE 78; RESP 18; O2SAT 98
[2021-07-11] MEDS: Famotidine 20 MG Tablet 40 MG PO (20:05)
[2021-07-11] MEDS: Montelukast 10 MG Tablet PO (20:06)
[2021-07-11] MEDS: Atorvastatin Calcium 10 MG Tablet PO (20:06)
[2021-07-12] MEDS: Acetaminophen 500 MG Tablet 1000 MG PO ×3 (05:31→21:39)
[2021-07-12] MEDS: Furosemide 40 MG Tablet PO ×2 (05:32→13:59)
[2021-07-12] MEDS: Pantoprazole Sodium 40 MG Tablet PO (05:32)
[2021-07-12] MEDS: levoFLOXacin 750 MG Tablet PO (05:32)
[2021-07-12] MEDS: Flecainide 100 MG Tablet 50 MG PO ×2 (05:32→17:32)
[2021-07-12] MEDS: APIXABAN 5 MG TABLET PO ×2 (05:33→17:31)
[2021-07-12] MEDS: dilTIAZem CD 180 MG Capsule PO (05:33)
[2021-07-12] MEDS: Levothyroxine 25 MCG TABLET PO (05:33)
[2021-07-12] MEDS: guaiFENesin 1,200 MG Tablet 1200 MG PO ×2 (05:33→17:31)
[2021-07-12] MEDS: Senna/Docusate Sodium 1 Tablet 2 TABLET PO (05:34)
[2021-07-12 05:39] VITALS: BP 125/60; PULSE 79
[2021-07-12] MEDS: BACITRACIN 15 GM Tube 1 APPLIC TOPICAL ×2 (06:43→21:39)
[2021-07-12] MEDS: Nystatin Powder 15gm Bottle 1 APPLIC TOPICAL ×2 (06:44→17:33)
[2021-07-12 06:45] VITALS: PULSE 85; RESP 16
[2021-07-12] MEDS: Ipratropium/Albuterol Sulfate 3 ML AMPUL.NEB INHALATION ×3 (06:45→20:53)
[2021-07-12] MEDS: Budesonide Respules 0.5 MG/2 ML AMPUL.NEB. INHALATION ×2 (06:45→20:53)
[2021-07-12] MEDS: Menthol/Lanolin/Calamine/Znox 113 GM Tube 1 APPLIC TOPICAL ×2 (06:51→17:31)
[2021-07-12] MEDS: Potassium Chloride Oral Tablet 20 MEQ PO ×2 (08:05→17:31)
[2021-07-12] MEDS: Gabapentin 100 MG Capsule PO ×2 (08:07→17:35)
[2021-07-12 10:00] VITALS: PULSE 88; RESP 16; O2SAT 95
[2021-07-12] MEDS: Lidocaine 5% Patch 1 PATCH TOPICAL (10:50)
[2021-07-12 13:56] VITALS: BP 130/60; PULSE 90; RESP 18; TEMP 36.6; O2SAT 98
[2021-07-12 15:15] VITALS: PULSE 85; RESP 18
[2021-07-12] MEDS: Ferrous Sulfate 325 MG Tablet PO (17:30)
[2021-07-12 20:54] VITALS: PULSE 86; RESP 18
[2021-07-12] MEDS: Famotidine 20 MG Tablet 40 MG PO (21:38)
[2021-07-12] MEDS: Atorvastatin Calcium 10 MG Tablet PO (21:38)
[2021-07-12] MEDS: Montelukast 10 MG Tablet PO (21:39)
[2021-07-13] MEDS: Acetaminophen 500 MG Tablet 1000 MG PO ×3 (06:12→20:46)
[2021-07-13] MEDS: Flecainide 100 MG Tablet 50 MG PO ×2 (06:13→17:56)
[2021-07-13] MEDS: levoFLOXacin 750 MG Tablet PO (06:13)
[2021-07-13] MEDS: Furosemide 40 MG Tablet PO ×2 (06:13→15:21)
[2021-07-13] MEDS: Levothyroxine 25 MCG TABLET PO (06:13)
[2021-07-13] MEDS: Pantoprazole Sodium 40 MG Tablet PO (06:13)
[2021-07-13] MEDS: dilTIAZem CD 180 MG Capsule PO (06:14)
[2021-07-13] MEDS: BACITRACIN 15 GM Tube 1 APPLIC TOPICAL ×2 (06:14→17:58)
[2021-07-13] MEDS: guaiFENesin 1,200 MG Tablet 1200 MG PO ×2 (06:14→17:57)
[2021-07-13] MEDS: APIXABAN 5 MG TABLET PO ×2 (06:14→17:56)
[2021-07-13] MEDS: Menthol/Lanolin/Calamine/Znox 113 GM Tube 1 APPLIC TOPICAL ×2 (06:14→17:59)
[2021-07-13] MEDS: Nystatin Powder 15gm Bottle 1 APPLIC TOPICAL ×2 (06:15→17:57)
[2021-07-13] MEDS: Potassium Chloride Oral Tablet 20 MEQ PO ×2 (08:46→17:56)
[2021-07-13] MEDS: Lidocaine 5% Patch 1 PATCH TOPICAL (08:46)
[2021-07-13] MEDS: Gabapentin 100 MG Capsule PO ×2 (09:42→17:56)
[2021-07-13] MEDS: Budesonide Respules 0.5 MG/2 ML AMPUL.NEB. INHALATION ×2 (10:05→18:44)
[2021-07-13] MEDS: Ipratropium/Albuterol Sulfate 3 ML AMPUL.NEB INHALATION ×2 (10:05→18:44)
[2021-07-13 10:06] VITALS: PULSE 85; RESP 14; O2SAT 98
[2021-07-13 13:43] VITALS: BP 110/63; PULSE 92; RESP 16; TEMP 36.4; O2SAT 98
[2021-07-13] MEDS: Albuterol 2.5 MG/3 ML VIAL.NEB. INHALATION (15:40)
[2021-07-13 15:42] VITALS: PULSE 85; RESP 18
[2021-07-13] MEDS: Senna/Docusate Sodium 1 Tablet 2 TABLET PO (17:56)
[2021-07-13 18:44] VITALS: PULSE 88; RESP 16
[2021-07-13] MEDS: Atorvastatin Calcium 10 MG Tablet PO (20:47)
[2021-07-13] MEDS: Montelukast 10 MG Tablet PO (20:47)
[2021-07-13] MEDS: Famotidine 20 MG Tablet 40 MG PO (20:48)
[2021-07-14 06:00] LABS: Absolute Lymphocyte Count 1.63 X10^3/uL (0.83-4.51); Absolute Neutrophil Count 2.9 X10^3/uL (2.0-7.7); Basophil# 0.04 X10^3/uL; Basophil% 0.7 % (0-1); Eosinophil# 0.28 X10^3/uL; Eosinophils% 4.9 % (0-5); Hematocrit 28.7 % (37-47); Hemoglobin 8.6 g/dL (12.0-15.0); Lymphocyte # 1.63 X10^3/ul (0.83-4.51); Lymphocyte % 28.6 % (19-41); Mean Corpuscular Hgb 28.3 pg (27.0-32.0); Mean Corpuscular Volume 94.4 fL (81-99); Mean Platelet Vol. 9.8 fl (6.2-12.0); Monocyte# 0.78 X10^3/uL; Monocyte% 13.7 % (0-10); NRBC Flagged by Analyzer 0 % (0-5); Neutrophil # 2.93 X10^3/uL (2.7-7.7); Neutrophil % 51.4 % (47-70); Platelet Count 401 K/mm3 (150-450); RBC Distribution Width CV 14.9 % (11.6-14.6); RBC Distribution Width SD 51.2 fl (35.1-43.9); Red Blood Count 3.04 M/mm3 (4.2-5.4); White Blood Count 5.7 K/mm3 (4.4-11.0)
[2021-07-14] MEDS: Flecainide 100 MG Tablet 50 MG PO ×2 (06:26→17:56)
[2021-07-14] MEDS: Levothyroxine 25 MCG TABLET PO (06:27)
[2021-07-14] MEDS: dilTIAZem CD 180 MG Capsule PO (06:27)
[2021-07-14] MEDS: Pantoprazole Sodium 40 MG Tablet PO (06:27)
[2021-07-14] MEDS: Furosemide 40 MG Tablet PO ×2 (06:27→14:04)
[2021-07-14] MEDS: levoFLOXacin 750 MG Tablet PO (06:27)
[2021-07-14] MEDS: Acetaminophen 500 MG Tablet 1000 MG PO ×3 (06:27→21:17)
[2021-07-14] MEDS: guaiFENesin 1,200 MG Tablet 1200 MG PO ×2 (06:27→17:56)
[2021-07-14] MEDS: APIXABAN 5 MG TABLET PO ×2 (06:27→17:57)
[2021-07-14] MEDS: Nystatin Powder 15gm Bottle 1 APPLIC TOPICAL ×2 (06:29→18:02)
[2021-07-14] MEDS: Menthol/Lanolin/Calamine/Znox 113 GM Tube 1 APPLIC TOPICAL (06:29)
[2021-07-14] MEDS: BACITRACIN 15 GM Tube 1 APPLIC TOPICAL (06:29)
[2021-07-14 06:37] LABS: Anion Gap 9 (5-15); BUN 37 mg/dL (7-18); BUN/Creat Ratio 28.2 RATIO (10-20); Calcium,Total 9.1 mg/dL (8.5-10.1); Chloride 111 mmol/L (98-107); Creatinine, Serum 1.31 mg/dL (0.55-1.02); EST Glomerular Filtration Rate 43 mL/min (>60); Est Glom Filt Rate - Afr Amer 52 mL/min (>60); Estimated Creatinine Clearance 31.45 ml/min; Glucose 117 mg/dL (74-106); Potassium 3.5 mmol/L (3.5-5.1); Sodium Level 143 mmol/L (136-145)
[2021-07-14 07:15] VITALS: PULSE 104; RESP 18; O2SAT 96
[2021-07-14] MEDS: Ipratropium/Albuterol Sulfate 3 ML AMPUL.NEB INHALATION ×2 (07:15→13:00)
--- NOTE | 2021-07-14 07:23 | NURSING ---
Addendum entered by Juli Lozano 07/14/21 07:40: This nurse spoke with patient regarding concerns, pt no longer had mepilex on from 07/11 and does not like the emma statingI feel like it just comes off my underwear and does not do anything Pt also expressed concerns about her hip stating that incision does not seem to be healing properly. Pt cancelled f/u appointment with surgeon last week due to family not being able to transport and pt not wanting staff to schedule transport for her. This nurse asked pt if she had rescheduled appointment with ortho yet and she stated she talked to the office and is going to go in after she d/c from TCU. This nurse updated wound nurse on pts concerns and stated she could see her this afternoon Original Note: Pt upset about wound care, c/o a very painful bottom and concerned about incision with increased drainage and lack of dressings applied. Bottom is mild shearing to bilat buttocks, emma has been being applied and also a mepilex. Last night a duoderm was applied along with emma to help healing and pad and protect but educated pt that if she scoots she will risk shearing more and the dressing will roll and not be effective. For her surgical incision it appears there are now 3 open areas vs the 2 from Fri. most prox is 1.0 cm in length x 0.3 cm, middle is 1.3 cm in length x 0.5cm in width, most distal is 1.2 cm length x 0.6cm width. Cleansed and pat dry, slough noted and reddened around opened areas. Bacitracin has been being applied and left LAN with a pillow case at abd fold to help with moisture to protect site. Applied aquacel AG and dsd this time. Pt thankful, RN aware and reported off to eber MAYORGA, wound care nurse also notifited.
[2021-07-14] MEDS: Potassium Chloride Oral Tablet 20 MEQ PO ×2 (07:35→17:57)
[2021-07-14] MEDS: Gabapentin 100 MG Capsule PO ×2 (07:38→18:00)
--- NOTE | 2021-07-14 10:20 | CASEMGMT ---
Social Work Met with pt as she is requesting to DC home tomorrow. IDT agreeable. She is ad starla in room. Pt requesting [facility]. Referral made for PT/OT/SN. No DME needs. Family to transport. Plan: DC home 07/15, [facility] PT/OT/SN MARYURI Kuhn
[2021-07-14 10:58] VITALS: PULSE 106; RESP 20; TEMP 36.9; O2SAT 95
[2021-07-14] MEDS: Lidocaine 5% Patch 1 PATCH TOPICAL (11:42)
--- NOTE | 2021-07-14 12:03 | WOUNDNOTE ---
wound photo: left anterior thigh
[2021-07-14 13:00] VITALS: RESP 18
--- NOTE | 2021-07-14 16:30 | NURSING ---
pt refused straight cath ordered by Dr. Liu
--- NOTE | 2021-07-14 16:50 | PCM.DC ---
Discharge Instructions Diet Discharge Diet: - (1800 calorie diet with low fat and low salt.) Activity Discharge Activity: May Not Drive, May Shower and Use Walker Weight Bearing Status: Weight bearing as tolerated Lifting Restrictions: 5 lbs Keep extremity elevated above heart level: Left Leg Dressing / Incision Call your doctor if your incision/area has: Continuous Slow Oozing, Sudden Increased Bleeding, Increased Pain/ Swelling, Increased Redness, Foul Smelling Discharge and Swelling at the incision site Call your doctor if you observe: Fever of 101 or Higher, Shortness of breath, Fainting spells, Chest pain, Calf discomfort and Uncontrolled pain Suture Line Care: Avoid Pulling/Pushing and Avoid Pinching/Bending Cleanse incision/area with: Soap & Water and Keep Dressing Clean & Dry Follow Up Care Please Follow Up With: Nathaniel Reynoso MD When: as directed Test Results: Test results from this visit will be discussed in further detail at your follow-up appointment, if applicable. Pending Tests Upon Discharge: none Discharge Plan Admission Admit Date/Time: 07/06/21 16:04 Primary Reason for Your Visit: Debility due to PNA. Attending Provider: Jose Angel Kaur Chi Primary Care Provider: Ervin Donnelly Instructions Additional Instructions / Restrictions: 1. You complained of burning with urination the day before you were supposed to be discharged. Your white blood count is normal. You have no fever. You have been on antibiotics and I suspect the burning may be due to a yeast infection. I ordered a urine analysis but, you refused the test. It is important to catheterize you for the specimen because for a woman of your size with a recent total hip replacement it is nearly impossible to get a clean catch and it would therefore likely be contaminated and of no use. If you continue to have burning with urination after your Discharge you will need to see your PCP . If you have vaginal Discharge and itching or burning in the vaginal area you could purchase Monistat Vaginal cream over the counter at your pharmacy for possible vaginal donta infection related to the antibiotics. 2. Do not sit for longer than 1 hour without getting up to take a walk or you will get stiff. 3. Follow up with Dr. Reynoso as directed and with Dr. Donnelly in 5-7 days. 4. Make sure to finish ALL the antibiotic tabs given to you or the infection may come back and then become resistant to the antibiotic. 5. If you are having diarrhea in excess of 3 liquid stools a day call Dr. Donnelly. Discharge Orders/Prescriptions Prescriptions: New gabapentin 100 mg Capsule 100 mg PO BIDCM Qty: 28 RF: 0 acidophilus-pectin, citrus 25 million cell -100 mg Tablet 1 tab PO BID Qty: 0 RF: 0 Continued famotidine 40 mg tablet 40 mg PO QHS RF: 0 esomeprazole magnesium [Nexium] 40 mg capsule,delayed release(DR/EC) 40 mg PO DAILY RF: 0 potassium chloride 20 mEq tablet,ER particles/crystals 20 meq PO BID RF: 0 lactobacillus combination no.8 3 billion cell capsule 1 cell PO DAILY RF: 0 levothyroxine 25 mcg tablet 25 mcg PO DAILY@0600 RF: 0 furosemide [Lasix] 40 mg tablet 40 mg PO BID RF: 0 cholecalciferol (vitamin D3) 50 mcg (2,000 unit) Capsule 50 mcg PO DAILY RF: 0 diltiazem HCl [Cardizem CD] 180 mg capsule,extended release 24hr 180 mg PO DAILY RF: 0 montelukast [Singulair] 10 mg tablet 10 mg PO QHS RF: 0 Eliquis 5 mg tablet 5 mg PO BID RF: 0 atorvastatin [Lipitor] 10 mg tablet 10 mg PO QHS RF: 0 ferrous sulfate 325 MG tablet 325 mg PO QODAY RF: 0 ipratropium bromide 21 mcg (0.03 %) spray,non-aerosol 2 spray intranasal BID RF: 0 Advair HFA 230-21 mcg/actuation HFA aerosol inhaler 2 puff INHALATION BID RF: 0 Mucus Relief ER 1,200 mg tablet extended release 12hr 1,200 mg PO BID RF: 0 levofloxacin 750 mg tablet 750 mg PO Q24H Qty: 4 RF: 0 albuterol sulfate 2.5 mg /3 mL (0.083 %) solution for nebulization 2.5 mg INHALATION Q4H PRN Qty: 180 RF: 6 flecainide 50 mg tablet 50 mg PO BID Qty: 180 RF: 3 Changed acetaminophen 500 mg tablet 1,000 mg PO Q8 PRN (Reason: pain of temp > 101) Qty: 0 RF: 0 lidocaine 5 % adhesive patch,medicated 1 patch topical 1XD Qty: 10 RF: 0 Discontinued sennosides-docusate sodium [Stool Softener-Stimulant Laxat] 8.6-50 mg tablet 2 tab PO BID RF: 0 Ensure Surgery 0.08-1.4 gram-kcal/mL liquid 237 ml PO TIDCM RF: 0 tramadol 50 mg Tablet 50 mg PO Q6H PRN PRN (Reason: Pain Score 4-10) 3 Days Qty: 10 RF: 0 nystatin [Nyamyc] 100,000 unit/gram powder 1 applic topical BID RF: 0 Remove Patch 1 patch topical DAILY@2200 RF: 0 Referrals / Follow Up: Ervin Donnelly MD [Primary Care Provider] - 07/16/21 7:50 am Pete Bazzi DO [STAFF PHYSICIAN] - 08/03/21 1:15 pm Disposition Disposition (needs filled in before D/C Order can be placed): Home Health Service
--- NOTE | 2021-07-14 17:35 | PCM.DC.SUM ---
Providers Date of Admission: 07/06/21 Primary Care Physician: Dr. Ervin Donnelly MD Reason For Visit: PNEUMONIA Diagnosis Discharge Diagnosis (1) Debility: Status: Acute Code(s): R53.81 - Other malaise (2) Pseudomonas pneumonia: Status: Acute Code(s): J15.1 - Pneumonia due to Pseudomonas (3) Gastroesophageal reflux disease: Status: Chronic Code(s): K21.9 - Gastro-esophageal reflux disease without esophagitis (4) Hypokalemia: Status: Resolved Code(s): E87.6 - Hypokalemia (5) Allergic rhinitis: Status: Chronic Code(s): J30.9 - Allergic rhinitis, unspecified (6) Hypothyroidism: Status: Chronic Code(s): E03.9 - Hypothyroidism, unspecified (7) Chronic diastolic congestive heart failure: Status: Chronic Code(s): I50.32 - Chronic diastolic (congestive) heart failure (8) Vitamin D deficiency: Status: Chronic Code(s): E55.9 - Vitamin D deficiency, unspecified (9) Atrial fibrillation: Status: Chronic Code(s): I48.91 - Unspecified atrial fibrillation (10) Asthma: Status: Chronic Code(s): J45.909 - Unspecified asthma, uncomplicated (11) Hyperlipidemia: Status: Chronic Code(s): E78.5 - Hyperlipidemia, unspecified Plan: 1. DC home with [facility] 2. follow up with Dr. Donnelly in 5-[address] Bazzi as directed 3. [facility]to finish on 07/18/21 4. Follow up with Dr. Reynoso Medications at Discharge Home Medications levothyroxine 25 mcg tablet 25 mcg PO DAILY@0600 01/04/20 albuterol sulfate 2.5 mg INHALATION Q4H PRN #180 vial 03/17/20 famotidine 40 mg tablet 40 mg PO QHS 04/02/20 cholecalciferol (vitamin D3) 50 mcg PO DAILY 09/19/20 furosemide [Lasix] 40 mg PO BID 09/19/20 esomeprazole magnesium 40 mg capsule,delayed release 40 mg PO DAILY cap 10/13/20 potassium chloride 20 mEq tablet,extended release(part/cryst) 20 meq PO BID tab 10/13/20 flecainide 50 mg tablet 50 mg PO BID #180 tab 02/19/21 lactobacillus combination no.8 3 billion cell capsule 1 cell PO DAILY 03/25/21 Eliquis 5 mg PO BID 04/01/21 diltiazem HCl [Cardizem CD] 180 mg PO DAILY 04/01/21 montelukast [Singulair] 10 mg PO QHS 04/01/21 Advair HFA 2 puff INHALATION BID 06/26/21 Mucus Relief ER 1,200 mg PO BID 06/26/21 atorvastatin [Lipitor] 10 mg PO QHS 06/26/21 ferrous sulfate 325 mg PO QODAY 06/26/21 ipratropium bromide 2 spray INTRANASAL BID 06/26/21 acetaminophen 1,000 mg PO Q8 PRN #0 tab 07/14/21 acidophilus-pectin, citrus 1 tab PO BID #0 tab 07/14/21 gabapentin 100 mg PO BIDCM #28 cap 07/14/21 levofloxacin 750 mg PO Q24H #4 tab 07/14/21 lidocaine 1 patch TOPICAL 1XD #10 ea 07/14/21 Hospital Course Operations None Procedures None Summary of Care Provided Minutes Spent on Discharge: 35 Hospital Course: Date of Admission: 07/06/21 HPI Narrative 07/04/2021 LAURA SERRANO, is a 66 Female TCU resident status post left total hip replacement presented to [facility] Emergency Department. Fever, chills, rigors. 07/04/2021 Admit to Hospital. Meropenem IV for Pseudomonas Aeruginosa pneumonia. Orthopedics feels left hip incision not site of infection. 07/05/2021 Feeling better, fever and chills resolved. Gentle IV fluids for dehydration. 07/06/2021 Blood cultures negative. Finish treatment with Levaquin. Will conclude on 07/18/21 07/06/2021 Admit to TCU with debility, here for rehabilitation, strengthening, prior to discharge home alone. Pt requested to be discharged on 07/15/21. Prior to DC she was maintaining an oxygen saturation of 95 to 98% on room air. She had not taken any Tramadol since 07/06/2021. She had been refusing her stool softeners and bowel movements were regular. She had ambulated up to 355 feet with a wheeled walker. She completed the tug test in 19 seconds with a wheeled walker which is excellent. She was able to do 2 platform steps using a wheeled walker at min assist and 5 steps with 2 hand also had standby assist. She completed a shower on 07/14/2021 with shower transfer at standby assist with grab bars and minimal voice cues. She was able to bathe and dress her upper body at supervision. She was able to bathe her lower body at standby assist and was able to complete lower body dressing with an assistive device for increased ease and safety. She was mod I for toilet transfer and toileting. Hemoglobin at discharge is stable at 8.6. Creatinine is within baseline at 1.31 and the BUN is 37. On the morning of 07/14/21 she complained of burning with urination to her nurse. She was AF and the WBC was normal with an unremarkable DIFF. She is still on Levaquin. Her BMI is 41 and she recently had a THR. A straight cath for UA was ordered because it is nearly impossible to obtain a satisfactory specimen in a woman with a BMI of 41 and a recent THR. She refused and later told me that she never had burning withm urination. I told her if she has continued burning she can follow up with Dr. Donnelly. I also told her that the burning may be due to donta vaginitis from all the antibiotics and suggested she could try aston-stat OTC if the discomfort persisted. She will follow up with Dr. Donnelly, Dr. Reynoso and Dr. Bazzi. She was given RX's for Gabapentin and Levaquin at [facility]. Physical Exam Const alert, oriented x3 and no apparent distress Constitutional Narrative: pleasant General Appearance: cooperative, comfortable and well kempt Eyes PERRL, EOMs intact bilaterally, conjunctivae normal and no scleral icterus Resp normal respiratory effort, normal air movement and clear to auscultation bilaterally Resp Narrative: No tachypnea and she did not cough with deep breaths Effort and Inspection: able to speak in complete sentences Cardio regular rate, regular rhythm, S1 normal heart sound, S2 normal heart sound and no gallops GI normal to inspection, nondistended, normoactive bowel sounds, soft to palpation and non-tender Extremity no calf tenderness Weight / BMI Weight Weight: 219 lb 5 oz Body Mass Index (BMI) 42.7 ABG / Lab / Microbiology Data Result Diagrams: 07/14/21 05:13 07/14/21 05:13 Laboratory: Laboratory Results - last 24 hr 07/14/21 05:13: WBC 5.7, RBC 3.04 L, Hgb 8.6 L, Hct 28.7 L, MCV 94.4, MCH 28.3, MCHC 30.0 L, RDW Std Deviation 51.2 H, RDW Coeff of Lan[place] 14.9 H, Plt Count 401, MPV 9.8, Immature Gran % (Auto) 0.700, Neut % (Auto) 51.4, Lymph % (Auto) 28.6, [place] % (Auto) 13.7 H, Eos % (Auto) 4.9, Baso % (Auto) 0.7, Absolute Neuts (auto) 2.9, Absolute Lymphs (auto) 1.63, Nucleated RBC % 0 07/14/21 05:13: Sodium 143, Potassium 3.5, Chloride 111 H, Carbon Dioxide 23.0, Anion Gap 9, BUN 37 H, Creatinine 1.31 H, Estim Creat Clear Calc 31.45, Est GFR (MDRD) Af Amer 52 L, Est GFR (MDRD) Non-Af 43 L, BUN/Creatinine Ratio 28.2 H, Glucose 117 H, Calcium 9.1 Microbiology: Microbiology 07/13/21 11:13 Nasal Secretion SARS-CoV-2 Antigen (Rapid) - Final D/C Instructions Discharge Diet: - (1800 calorie diet with low fat and low salt.) Weight Bearing Status: Weight bearing as tolerated Keep extremity elevated above heart level: Left Leg Call your doctor if your incision/area has: Continuous Slow Oozing, Sudden Increased Bleeding, Increased Pain/ Swelling, Increased Redness, Foul Smelling Discharge and Swelling at the incision site Call your doctor if you observe: Fever of 101 or Higher, Shortness of breath, Fainting spells, Chest pain, Calf discomfort and Uncontrolled pain Suture Line Care: Avoid Pulling/Pushing and Avoid Pinching/Bending Cleanse incision/area with: Soap & Water and Keep Dressing Clean & Dry Pending Tests Upon Discharge: none Please Follow Up With: Nathaniel Reynoso MD When: as directed Meaningful Use Info Meaningful Use Diagnoses (Choose all that apply): None applicable Discharge Plan Admission Admit Date/Time: 07/06/21 16:04 Primary Reason for Your Visit: Debility due to PNA. Attending Provider: Jose Angel Kaur Chi Primary Care Provider: Ervin Donnelly Instructions Additional Instructions / Restrictions: 1. You complained of burning with urination the day before you were supposed to be discharged. Your white blood count is normal. You have no fever. You have been on antibiotics and I suspect the burning may be due to a yeast infection. I ordered a urine analysis but, you refused the test. It is important to catheterize you for the specimen because for a woman of your size with a recent total hip replacement it is nearly impossible to get a clean catch and it would therefore likely be contaminated and of no use. If you continue to have burning with urination after your Discharge you will need to see your PCP . If you have vaginal Discharge and itching or burning in the vaginal area you could purchase Monistat Vaginal cream over the counter at your pharmacy for possible vaginal donta infection related to the antibiotics. 2. Do not sit for longer than 1 hour without getting up to take a walk or you will get stiff. 3. Follow up with Dr. Reynoso as directed and with Dr. Donnelly in 5-7 days. 4. Make sure to finish ALL the antibiotic tabs given to you or the infection may come back and then become resistant to the antibiotic. 5. If you are having diarrhea in excess of 3 liquid stools a day call Dr. Donnelly. Discharge Orders/Prescriptions Prescriptions: New gabapentin 100 mg Capsule 100 mg PO BIDCM Qty: 28 RF: 0 acidophilus-pectin, citrus 25 million cell -100 mg Tablet 1 tab PO BID Qty: 0 RF: 0 Continued famotidine 40 mg tablet 40 mg PO QHS RF: 0 esomeprazole magnesium [Nexium] 40 mg capsule,delayed release(DR/EC) 40 mg PO DAILY RF: 0 potassium chloride 20 mEq tablet,ER particles/crystals 20 meq PO BID RF: 0 lactobacillus combination no.8 3 billion cell capsule 1 cell PO DAILY RF: 0 levothyroxine 25 mcg tablet 25 mcg PO DAILY@0600 RF: 0 furosemide [Lasix] 40 mg tablet 40 mg PO BID RF: 0 cholecalciferol (vitamin D3) 50 mcg (2,000 unit) Capsule 50 mcg PO DAILY RF: 0 diltiazem HCl [Cardizem CD] 180 mg capsule,extended release 24hr 180 mg PO DAILY RF: 0 montelukast [Singulair] 10 mg tablet 10 mg PO QHS RF: 0 Eliquis 5 mg tablet 5 mg PO BID RF: 0 atorvastatin [Lipitor] 10 mg tablet 10 mg PO QHS RF: 0 ferrous sulfate 325 MG tablet 325 mg PO QODAY RF: 0 ipratropium bromide 21 mcg (0.03 %) spray,non-aerosol 2 spray intranasal BID RF: 0 Advair HFA 230-21 mcg/actuation HFA aerosol inhaler 2 puff INHALATION BID RF: 0 Mucus Relief ER 1,200 mg tablet extended release 12hr 1,200 mg PO BID RF: 0 levofloxacin 750 mg tablet 750 mg PO Q24H Qty: 4 RF: 0 albuterol sulfate 2.5 mg /3 mL (0.083 %) solution for nebulization 2.5 mg INHALATION Q4H PRN Qty: 180 RF: 6 flecainide 50 mg tablet 50 mg PO BID Qty: 180 RF: 3 Changed acetaminophen 500 mg tablet 1,000 mg PO Q8 PRN (Reason: pain of temp > 101) Qty: 0 RF: 0 lidocaine 5 % adhesive patch,medicated 1 patch topical 1XD Qty: 10 RF: 0 Discontinued sennosides-docusate sodium [Stool Softener-Stimulant Laxat] 8.6-50 mg tablet 2 tab PO BID RF: 0 Ensure Surgery 0.08-1.4 gram-kcal/mL liquid 237 ml PO TIDCM RF: 0 tramadol 50 mg Tablet 50 mg PO Q6H PRN PRN (Reason: Pain Score 4-10) 3 Days Qty: 10 RF: 0 nystatin [Nyamyc] 100,000 unit/gram powder 1 applic topical BID RF: 0 Remove Patch 1 patch topical DAILY@2200 RF: 0 Referrals / Follow Up: Ervin Donnelly MD [Primary Care Provider] - 07/16/21 7:50 am Pete Bazzi DO [STAFF PHYSICIAN] - 08/03/21 1:15 pm Disposition Disposition (needs filled in before D/C Order can be placed): Home Health Service Charges/Coding Visit Charges Inpatient E&M: 19268 [facility] Disch
[2021-07-14] MEDS: Senna/Docusate Sodium 1 Tablet 2 TABLET PO (17:57)
[2021-07-14] MEDS: Ferrous Sulfate 325 MG Tablet PO (17:57)
[2021-07-14] MEDS: Famotidine 20 MG Tablet 40 MG PO (21:15)
[2021-07-14] MEDS: Montelukast 10 MG Tablet PO (21:16)
[2021-07-14] MEDS: Atorvastatin Calcium 10 MG Tablet PO (21:17)
[2021-07-15 03:09] VITALS: PULSE 85; RESP 18; O2SAT 98
[2021-07-15 03:21] VITALS: BP 111/59; PULSE 85; RESP 18; TEMP 36.8; O2SAT 98
[2021-07-15 06:35] VITALS: BP 112/58; PULSE 78; RESP 16; TEMP 36.3; O2SAT 98
[2021-07-15] MEDS: APIXABAN 5 MG TABLET PO (06:38)
[2021-07-15] MEDS: dilTIAZem CD 180 MG Capsule PO (06:38)
[2021-07-15] MEDS: Furosemide 40 MG Tablet PO (06:39)
[2021-07-15] MEDS: levoFLOXacin 750 MG Tablet PO (06:39)
[2021-07-15] MEDS: guaiFENesin 1,200 MG Tablet 1200 MG PO (06:39)
[2021-07-15] MEDS: Pantoprazole Sodium 40 MG Tablet PO (06:40)
[2021-07-15] MEDS: Levothyroxine 25 MCG TABLET PO (06:40)
[2021-07-15] MEDS: Flecainide 100 MG Tablet 50 MG PO (06:41)
[2021-07-15] MEDS: Acetaminophen 500 MG Tablet 1000 MG PO (06:42)
[2021-07-15 06:51] VITALS: PULSE 73; RESP 18
[2021-07-15] MEDS: Ipratropium/Albuterol Sulfate 3 ML AMPUL.NEB INHALATION (06:51)
[2021-07-15] MEDS: Budesonide Respules 0.5 MG/2 ML AMPUL.NEB. INHALATION (06:51)
[2021-07-15] MEDS: Potassium Chloride Oral Tablet 20 MEQ PO (07:43)
[2021-07-15] MEDS: Gabapentin 100 MG Capsule PO (07:48)
[2021-07-15] MEDS: Lidocaine 5% Patch 1 PATCH TOPICAL (09:26)
--- NOTE | 2021-07-15 11:14 | NURSING ---
Candy Cutter Hand Note: Interview and MDS section F complete.
--- NOTE | 2021-07-17 10:20 | MDS.RN ---
Information for the mds was obtained from review of the clinical record, interview of resident, staff, and direct observation of resident's care.
== END 2021-07-15 10:00 | disposition home health service (06) | DRG 559 ==
PROVIDERS: Admitting Provider Family Medicine Geriatric Medicine; PCP Family Medicine; Visit Provider Family Medicine Geriatric Medicine
DX: Z47.1 Aftercare following joint replacement surgery (principal); J15.1 Pneumonia due to Pseudomonas; I13.0 Hypertensive heart and chronic kidney disease with heart failure and stage 1 through stage 4 chronic kidney disease, or unspecified chronic kidney disease; J44.0 Chronic obstructive pulmonary disease with (acute) lower respiratory infection; I50.32 Chronic diastolic (congestive) heart failure; Z68.42 Body mass index [BMI] 45.0-49.9, adult; E11.22 Type 2 diabetes mellitus with diabetic chronic kidney disease; B35.4 Tinea corporis; D50.9 Iron deficiency anemia, unspecified; B96.5 Pseudomonas (aeruginosa) (mallei) (pseudomallei) as the cause of diseases classified elsewhere; E11.51 Type 2 diabetes mellitus with diabetic peripheral angiopathy without gangrene; I48.0 Paroxysmal atrial fibrillation; E66.01 Morbid (severe) obesity due to excess calories; N18.31 Chronic kidney disease, stage 3a; E03.9 Hypothyroidism, unspecified; E55.9 Vitamin D deficiency, unspecified; E78.5 Hyperlipidemia, unspecified; K21.9 Gastro-esophageal reflux disease without esophagitis; E87.6 Hypokalemia; G47.33 Obstructive sleep apnea (adult) (pediatric); M16.12 Unilateral primary osteoarthritis, left hip; Z23 Encounter for immunization; Z79.01 Long term (current) use of anticoagulants; Z87.891 Personal history of nicotine dependence; Z79.51 Long term (current) use of inhaled steroids; Z96.642 Presence of left artificial hip joint; Z86.718 Personal history of other venous thrombosis and embolism; Z86.711 Personal history of pulmonary embolism; Z79.899 Other long term (current) drug therapy; Z79.890 Hormone replacement therapy
CPT/HCPCS: 0064A; 36415; 71046; 72100; 80048; 81001; 83605; 85025; 87040; 87070; 87077; 87086; 87184; 87186; 87205; 87426; 87633; 91306; 94640; 94667; 94668; 97110; 97116; 97162; 97166; 97530; 97535; 97802; J7050; A4216

== ENCOUNTER → 2021-08-20 | Outpatient (CLI) | payer MEDICARE, OTHER, SELFPAY ==
[2021-08-20 17:53] LABS: Hematocrit 33.2 % (37-47); Hemoglobin 9.9 g/dL (12.0-15.0); Mean Corp Hgb Conc 29.8 g/dL (32-36); Mean Corpuscular Hgb 28.4 pg (27.0-32.0); Mean Corpuscular Volume 95.1 fL (81-99); Mean Platelet Vol. 10.9 fl (6.2-12.0); Platelet Count 404 K/mm3 (150-450); RBC Distribution Width CV 14.5 % (11.6-14.6); RBC Distribution Width SD 50.3 fl (35.1-43.9); RET-HE 26.7 pg (30-35); Red Blood Count 3.49 M/mm3 (4.2-5.4); Reticulocyte Count 2.22 % (0.5-1.5); White Blood Count 8.4 K/mm3 (4.4-11.0)
[2021-08-20 18:28] LABS: Anion Gap 8 (5-15); BUN 27 mg/dL (7-18); Calcium,Total 9.3 mg/dL (8.5-10.1); Chloride 109 mmol/L (98-107); Creatinine, Serum 1.35 mg/dL (0.55-1.02); EST Glomerular Filtration Rate 42 mL/min (>60); Est Glom Filt Rate - Afr Amer 50 mL/min (>60); Ferritin 60 ng/mL (8-252); Glucose 100 mg/dL (74-106); Iron 28 ug/dL (50-170); Iron Binding Capacity,Total 269 ug/dL (250-450); Potassium 3.4 mmol/L (3.5-5.1); Sodium Level 142 mmol/L (136-145)
== END | disposition home or self-care (01) ==
LOC: MFPLAB 16:28
PROVIDERS: PCP Family Medicine; Visit Provider Family Medicine
DX: N39.0 Urinary tract infection, site not specified (principal); N18.30 Chronic kidney disease, stage 3 unspecified; D64.9 Anemia, unspecified
CPT/HCPCS: 36415; 80048; 82728; 83540; 83550; 85027; 85045

== ENCOUNTER 2021-09-09 10:15 | Outpatient (RCR) | payer MEDICARE, OTHER, SELFPAY ==
[2021-08-26 09:44] VITALS: BP 172/81; PULSE 80; TEMP 36.7
--- NOTE | 2021-08-26 12:22 | PCM.WC.HP ---
History of Present Illness Date of Service: 08/26/21 Chief Complaint: Follow-up surgical wound dehiscence History of Wound: 66-year-old white female that had a total hip replacement on the left approximately 9 weeks ago. During physical therapy noticed some openings that did not heal correctly. And was sent to us by her surgeon to see if we can get them closed. Patients are also that he could do a revision and reopen her and close her up better. She would not like to do that because its been a very rough 9 weeks for her and she is wanting go through that again. She has been packing it with silver. [facility] Medical History (Reviewed 08/26/21 @ 12:25 by Missy Carranza [employer], [employer]) Abnormal chest CT Acute bronchiolitis Acute respiratory failure ALEXYS (acute kidney injury) Allergic rhinitis Allergic rhinitis Anemia Anxiety Aspiration into airway Asthma Asthma Asthma Atrial fibrillation Atrial fibrillation with rapid ventricular response Atrial tachycardia Back pain Benign essential HTN Bronchiectasis Bronchiectasis with (acute) exacerbation Cardiology follow-up encounter Cavitary lesion of lung Cellulitis of right lower extremity Chronic diastolic congestive heart failure Chronic diastolic heart failure Chronic respiratory failure Coarse tremors COLD (chronic obstructive lung disease) Congestive heart failure (CHF) COPD with acute exacerbation Cough Diabetes Diabetes mellitus DVT (deep venous thrombosis) Easy bruising Former smoker Gastroesophageal reflux disease Gastroesophageal reflux disease HCAP (healthcare-associated pneumonia) High cholesterol History of COPD History of diabetes mellitus History of DVT (deep vein thrombosis) History of echocardiogram History of edema 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 History of renal disease History of stress test Hx pulmonary embolism Hyperlipidemia Hyperlipidemia Hypertension Hypothyroidism Hypothyroidism Hypoxemia Injury of back Insomnia Iron deficiency anemia Kidney disease Lung nodule Migraine headache Morbid obesity MRSA pneumonia Obesity GAGAN (obstructive sleep apnea) Pain of left hip Palpitations Paroxysmal atrial fibrillation Paroxysmal atrial tachycardia Pneumonia Pneumonia due to Pseudomonas Precordial chest pain Pulmonary embolism PVD (peripheral vascular disease) Right foot pain Septic shock Severe sepsis Shortness of breath Shortness of breath on exertion Steroid myopathy Tachycardia Thrush, oral Umbilical hernia Venous thromboembolism (VTE) Vitamin D deficiency Walker as ambulation aid Weakness Wears glasses Home Medications levothyroxine 25 mcg tablet 25 mcg PO DAILY@0600 thyroid 01/04/20 [History Last Taken 07/04/21 05:51] albuterol sulfate 2.5 mg/3 mL (0.083 %) solution for nebulization 2.5 mg (3 mL) inhalation Q4H PRN breathing #180 vials 03/17/20 [Rx Last Taken 07/03/21 19:16] famotidine 40 mg tablet 40 mg PO QHS reflux 04/02/20 [History Last Taken 07/03/21 23:04] cholecalciferol (vitamin D3) 50 mcg (2,000 unit) capsule 50 mcg PO DAILY SUPPLEMENT 09/19/20 [History Last Taken 07/04/21 05:54] furosemide 40 mg tablet (Lasix) 40 mg PO BID water pill 09/19/20 [History Last Taken 07/04/21 05:52] esomeprazole magnesium 40 mg capsule,delayed release (Nexium) 40 mg PO DAILY reflux 10/13/20 [History Last Taken 07/04/21 05:52] potassium chloride 20 mEq tablet,extended release(part/cryst) 20 meq PO BID supplement 10/13/20 [History Last Taken 07/03/21 07:56] flecainide 50 mg tablet 50 mg PO BID HEART #180 tabs 02/19/21 [Rx Last Taken 07/04/21 05:54] lactobacillus combination no.8 3 billion cell capsule 1 cell PO DAILY probiotic 03/25/21 [History Last Taken 07/04/21 06:03] apixaban 5 mg tablet (Eliquis) 5 mg PO BID anticoagulant 04/01/21 [History Last Taken 07/04/21 05:51] diltiazem HCl 180 mg capsule,extended release 24 hr (Cardizem CD) 180 mg PO DAILY heart 04/01/21 [History Last Taken 07/04/21 05:52] montelukast 10 mg tablet (Singulair) 10 mg PO QHS asthma 04/01/21 [History Last Taken 07/03/21 23:05] atorvastatin 10 mg tablet (Lipitor) 10 mg PO QHS cholesterol 06/26/21 [History Last Taken 07/03/21 23:03] ferrous sulfate 325 mg (65 mg iron) tablet 325 mg PO QODAY anemia 06/26/21 [History Last Taken 07/03/21 11:43] fluticasone propionate 230 mcg-salmeterol 21 mcg/actuation HFA inhaler (Advair HFA) 2 puff inhalation BID lungs 06/26/21 [History Last Taken 07/04/21 05:53] guaifenesin 1,200 mg tablet, extended release 12 hr (Mucus Relief ER) 1,200 mg PO BID congestion 06/26/21 [History Last Taken 07/04/21 05:51] ipratropium bromide 21 mcg (0.03 %) nasal spray 2 spray intranasal BID allergies 06/26/21 [History Last Taken Unknown] acetaminophen 500 mg tablet 1,000 mg PO Q8 PRN pain of temp > 101 #0 tabs 07/14/21 [Rx Last Taken 07/04/21 05:51] acidophilus 25 million cell-pectin, citrus 100 mg tablet 1 tab PO BID #0 tabs 07/14/21 [Rx Last Taken Unknown] gabapentin 100 mg capsule 100 mg PO BIDCM #28 caps 07/14/21 [Rx Last Taken Unknown] levofloxacin 750 mg tablet 750 mg PO Q24H Antibiotic #4 tabs 07/14/21 [Rx Last Taken Unknown] lidocaine 5 % topical patch 1 patch topical 1XD pain #10 ea 07/14/21 [Rx Last Taken Unknown] Allergy/AdvReac Type Severity Reaction Status Date / Time adhesive Allergy SKIN Verified 08/03/21 13:10 TEARS. PAPER TAPE OK azithromycin [From Zithromax] Allergy Rash Verified 08/03/21 13:10 cefuroxime sodium Allergy Rash Verified 08/03/21 13:10 [From Zinacef] clindamycin Allergy Hives Verified 08/03/21 13:10 nitrofurantoin Allergy Rash Verified 08/03/21 13:10 macrocrystalline [From Macrodantin] Sulfa (Sulfonamide Allergy Rash Verified 08/03/21 13:10 Antibiotics) atenolol AdvReac Severe Peripheal Verified 08/03/21 13:10 edema & cough metoprolol [From Toprol XL] AdvReac Severe Peripheral Verified 08/03/21 13:10 edema & cough duloxetine [From Cymbalta] AdvReac Intermediate made me Verified 08/03/21 13:10 feel really sick Corticosteroids AdvReac Other Verified 08/03/21 13:10 (Glucocorticoids) oxycodone HCl [From Percocet] AdvReac Vomiting Verified 08/03/21 13:10 Family History (Reviewed 08/26/21 @ 12:25 by Missy Carranza [employer], [employer]) Mother Hypertension Diabetes Heart disease Pulmonary embolism Father Perforated ulcer Respiratory failure Sister Asthma Hypertension Surgical History H/O section H/O foot surgery H/O hernia repair H/O shoulder surgery H/O: hysterectomy History of appendectomy History of cardioversion (~12/2016) History of left heart catheterization Hx of vein stripping S/P hip replacement S/P hysterectomy Status post hip replacement Social History household members: none Smoking Status: Former smoker quit date: 02/14/75 pack-years: 3 second hand exposure: No alcohol intake: never substance use type: does not use caffeine: No what type of physical activity do you participate in: none ROS Integumentary Integumentary: Reports other Details: Dehisced surgical wound left hip small punctuated opening and some slough at the very end of the wound. Vital Signs Vital Signs Vital Signs: 08/26/21 09:44 Temperature 98.0 F Temperature Source Temporal Pulse Rate 80 Blood Pressure 172/81 H Blood Pressure Mean 111 Blood Pressure Source Monitor Blood Pressure Position Sitting Blood Pressure Location Right Arm Physical Exam Const oriented x3 General Appearance: cooperative Exam Limitations: no limitations HEENT normocephalic Head and Scalp: normal to inspection Face and Sinus: normal facial exam Mouth: oral and palatal mucosa normal Eyes PERRL General Eye: normal appearance of both eyes Resp normal respiratory effort Effort and Inspection: able to speak in complete sentences Auscultation: clear to auscultation bilaterally Cardio regular rate and regular rhythm Palpation: normal PMI Rate: regular rate Rhythm: regular rhythm GI Auscultation: normoactive bowel sounds Palpation: soft and no hepatosplenomegaly external exam normal Extremity normal to inspection General Extremity: normal exam except as noted Skin no rashes or lesions noted Neuro oriented x3 Psych Appearance: grossly normal Speech: normal speech Thought Content: normal thought content Judgement: judgement good Debridement Note Debridement Note Wound debrided: Left medial surgical wound dehisced Laterality: Left Type of Debridement: Excisional debridement Anesthesia Used: 4% Lidocaine Solution and 5% Lidocaine Gel Depth: in the subcutaneous layer Percentage of wound debrided: 100 Instrument Used: 3mm curette Tissue Removed: Fibrin Severity: Fat Layer Exposed Amount of bleeding with debridement: None Patient tolerated procedure: Patient tolerated procedure well Post-Debridement Measurements and Additional Note: Post-Debridement Measurements/Treatment - Nurse 1 - General Ulcer Assessment Start: 08/26/21 09:43 Freq: Status: Active Protocol: MIKE Activity Type Activity Date Activity User E-sign Co-sign Detail Recorded Client Recorded Date Recorded By Document 08/26/21 09:44 IRINA [id number] 08/26/21 09:57 IRINA 08/26/21 09:44 - Today's Visit Information Type of service Initial Visit Arrival Mode Ambulatory, Walker Patient Identification Verified (Name & Yes ) Vital Signs Temperature (97.8 F-99.1 F) 98.0 F Temperature Source Temporal Pulse Rate (60-100) 80 Pulse Location Monitor Blood Pressure (90/60-120/80) 172/81 H Blood Pressure Mean 111 Source Monitor Position Sitting Blood Pressure Location Right Arm History Since Last Visit- (Skip if this is Patient's initial visit) Have you changed medications since your No last visit? Any new allergies or adverse reactions No Had a fall/change in ADL's that may No increase risk of falls Signs or symptoms of abuse and/or No neglect since last visit Have you been in the hospital since your No last visit? Has dressing in place as prescribed Yes Has compression in place as prescribed N/A Has offloadiing in place as prescribed N/A Experienced any changes in pain level or No management Left Footwear Regular Shoe Right Footwear Regular Shoe Pain Scale: 0-10 Numeric Is Patient Pain Free? Yes - Nurse 1 - General Ulcer Measurement Start: 08/26/21 09:43 Freq: Status: Active Protocol: Activity Type Activity Date Activity User E-sign Co-sign Detail Recorded Client Recorded Date Recorded By Document 08/26/21 09:44 IRINA [id number] 08/26/21 09:57 IRINA 08/26/21 09:44 Wound Center Nurse 1 #2 Left medial hip -Current Size (cm) - Length 0.3 -Current Size (cm) - Width 0.6 -Current Size (cm) - Depth 1.4 -Total Square Cm 0.18 -Exudate Amt Small -Exudate Type Serosanguineous -Wound Margin Distinct, Outline Attached -Granulation Amt Medium (34-66%) -Granulation Quality Dumas -Necrosis Amt Small (1-33%) -Necrotic Tissue Type Adherent Slough -Texture (Jagruti-wound Skin Appearance) Assessed, Scarring -Moisture (Jagruti-wound Skin Appearance) No Abnormality, Assessed -Color (Jagruti-wound Skin Appearance) No Abnormality, Assessed -Temperature (Jagruti-wound Skin No Abnormality Appearance) (Pt Warm) -Tenderness on Palpation (Jagruti-wound No Skin Appearance) -Ulcer Cleansing Rinsed/ Irrigated with Saline -Foul Odor after Cleansing No -Anesthetic Used 5% Lidocaine Gel #1 Left lateral Hip -Current Size (cm) - Length 0.4 -Current Size (cm) - Width 1.4 -Current Size (cm) - Depth 0.1 -Total Square Cm 0.56 -Exudate Amt Small -Exudate Type Serosanguineous -Wound Margin Distinct, Outline Attached -Necrosis Amt Large (67-100%) -Necrotic Tissue Type Adherent Slough -Texture (Jagruti-wound Skin Appearance) Assessed, Scarring -Moisture (Jagruti-wound Skin Appearance) No Abnormality, Assessed -Color (Jagruti-wound Skin Appearance) No Abnormality, Assessed -Temperature (Jagruti-wound Skin No Abnormality Appearance) (Pt Warm) -Tenderness on Palpation (Jagruti-wound No Skin Appearance) -Ulcer Cleansing Rinsed/ Irrigated with Saline -Foul Odor after Cleansing No -Anesthetic Used 5% Lidocaine Gel WC - Nurse 2 - General Ulcer CM Notes Start: 08/26/21 09:43 Freq: Status: Active Protocol: Activity Type Activity Date Activity User E-sign Co-sign Detail Recorded Client Recorded Date Recorded By Document 08/26/21 10:07 MW [id number] 08/26/21 10:19 MW 08/26/21 10:07 Wound Center Nurse 2 #2 Left medial hip -Time 10:07 -Correct Patient Yes -Correct Side, Site, Position Yes -Correct Procedure Yes -Procedure Performed Yes -Type of Procedure Debridement -Clinical Debridement Subcutaneous -Tissue Removed Subcutaneous -Post Debridement (cm) - Length 0.3 -Post Debridement (cm) - Width 0.5 -Post Debridement (cm) - Depth 1.1 -Total Square (Post) (cm) 0.15 -Area of Debridement (cm) - Length 0.3 -Area of Debridement (cm) - Width 0.5 -Total Square (Area) (cm) 0.15 -Tunneling No -Undermining/Tunneling No -Circular Undermining No -Wound/Ulcer Outcome Not Healed -Ulcer Cleansing Rinsed/ Irrigated with Saline -Foul Odor after Cleansing No -Bioengineered Tissue No -Bleeding Controlled with Pressure -Treatment Response Procedure Tolerated Well -Offloading No -Debridement - Subq, 1st 20sq cm Yes #1 Left lateral Hip -Time 10:08 -Correct Patient Yes -Correct Side, Site, Position Yes -Correct Procedure Yes -Procedure Performed Yes -Type of Procedure Debridement -Clinical Debridement Subcutaneous -Tissue Removed Subcutaneous -Post Debridement (cm) - Length 0.5 -Post Debridement (cm) - Width 3.5 -Post Debridement (cm) - Depth 0.1 -Total Square (Post) (cm) 1.75 -Area of Debridement (cm) - Length 0.5 -Area of Debridement (cm) - Width 3.5 -Total Square (Area) (cm) 1.75 -Tunneling No -Undermining/Tunneling No -Circular Undermining No -Wound/Ulcer Outcome Not Healed -Ulcer Cleansing Rinsed/ Irrigated with Saline -Foul Odor after Cleansing No -Bioengineered Tissue No -Bleeding Controlled with Pressure -Treatment Response Procedure Tolerated Well -Offloading No -Debridement - Subq, 1st 20sq cm No Pain Scale: 0-10 Numeric Is Patient Pain Free? Yes - Nurse 3 - General Ulcer D/C NN Start: 08/26/21 09:43 Freq: Status: Active Protocol: Activity Type Activity Date Activity User E-sign Co-sign Detail Recorded Client Recorded Date Recorded By Document 08/26/21 10:54 IRINA [id number] 08/26/21 10:55 IRINA 08/26/21 10:54 Wound Care Nurse 3 #2 Left medial hip -Ulcer Cleansing Rinsed/ Irrigated with Saline -Primary Dressing Applied Aquacel AG 4x4, Mepilex Border -Aquacel AG 4x4 1 -Mepilex Border 1 Pain Scale: 0-10 Numeric Is Patient Pain Free? Yes - Visit Discharge Discharge Condition Stable Ambulatory Status Ambulatory, Walker Transportation Private Auto Accompanied by daughter Additional Wound Wound debrided: Left lateral hip wound dehisced surgical wound Laterality: Left Type of Debridement: Excisional debridement Anesthesia Used: 4% Lidocaine Solution and 5% Lidocaine Gel Depth: Down to and including healthy tissue Percentage of wound debrided: 100 Instrument Used: 5mm curette Tissue Removed: Slough Severity: Limited To Skin Breakdown Amount of bleeding with debridement: None Patient tolerated procedure: Patient tolerated procedure well Assessment/Plan Assessment/Plan (1) Status post total hip replacement, left: CODE(S): Z96.642 - Presence of left artificial hip joint (2) Dehiscence of surgical wound: CODE(S): T81.31XA - Disruption of external operation (surgical) wound, not elsewhere classified, initial encounter PLAN: Left medial hip wound wash with antibacterial soap and pack with 1/2 inch iodoform gauze tightly cover with gauze and tape Left lateral hip wound cover with Aquacel extra moistened with gauze and tape. Follow-up in 1 week Follow-up in 1 week (3) Nonhealing surgical wound: CODE(S): T81.89XA - Other complications of procedures, not elsewhere classified, initial encounter
[2021-09-02 10:13] VITALS: BP 157/88; PULSE 94; RESP 16; TEMP 36.9
--- NOTE | 2021-09-02 12:29 | PCM.WC.PN ---
History of Present Illness Date of Service: 09/02/21 Chief Complaint: Follow-up surgical wound dehiscence History of Wound: 66-year-old white female that had a total hip replacement on the left approximately 9 weeks ago. During physical therapy noticed some openings that did not heal correctly. And was sent to us by her surgeon to see if we can get them closed. Patients are also that he could do a revision and reopen her and close her up better. She would not like to do that because its been a very rough 9 weeks for her and she is wanting go through that again. She has been packing it with silver. Progress of Wound: The measurements on the wounds are still the same though they are look better she has been able to do the packing by herself. She does have an appointment with Dr. Reynoso tomorrow at 9 AM to go over the wounds. Subjective Subjective Patient is thinking not to start the wound VAC till after she talks to Dr. Reynoso and that she is thinking about getting a revision which I think is a very good idea. Objective Data Objective Data I suggested that is in between waiting for the surgery we can put the snap VAC on her and Griselda it will do some help instead of her doing packings. Vital Signs: Vital Signs Temp Pulse Resp BP O2 Del Method 98.4 F 94 16 157/88 H Room Air 09/02/21 10:13 09/02/21 10:13 09/02/21 10:13 09/02/21 10:13 09/02/21 10:13 Oxygen Delivery Method Room Air Debridement Note Debridement Note Wound debrided: Left hip dehisced surgical wound Laterality: Left Type of Debridement: Excisional debridement Anesthesia Used: 5% Lidocaine Gel Depth: in the subcutaneous layer Percentage of wound debrided: 100 Instrument Used: 3mm curette Tissue Removed: Fibrin Severity: Fat Layer Exposed Amount of bleeding with debridement: Mild Bleeding Controlled with: Compression and gauze Patient tolerated procedure: Patient tolerated procedure well Post-Debridement Measurements and Additional Note: Post-Debridement Measurements/Treatment [id number] - Nurse 1 - General Ulcer Assessment Start: 08/26/21 09:43 Freq: Status: Active Protocol: MIKE Activity Type Activity Date Activity User E-sign Co-sign Detail Recorded Client Recorded Date Recorded By Document 08/26/21 09:44 KR [id number] 08/26/21 09:57 KR Document 09/02/21 10:13 [facility] [id number] 09/02/21 10:18 [facility] 08/26/21 09/02/21 09:44 10:13 - Today's Visit Information Type of service Initial Visit Follow-up Visit (Physician/SSN/[employer] ) Arrival Mode Ambulatory, Ambulatory, Walker Walker Transfer Assistance None Patient Identification Verified (Name & Yes Yes ) Patient Requires Transmission-Based No Precautions Vital Signs Temperature (97.8 F-99.1 F) 98.0 F 98.4 F Temperature Source Temporal Temporal Pulse Rate (60-100) 80 94 Pulse Location Monitor Monitor Respiratory Rate (12-18) 16 Respiratory rate source Observation Oxygen Delivery Method Room Air Blood Pressure (90/60-120/80) 172/81 H 157/88 H Blood Pressure Mean (mm Hg) 111 111 Source Monitor Monitor Position Sitting Sitting Blood Pressure Location Right Arm Left Arm History Since Last Visit- (Skip if this is Patient's initial visit) Have you changed medications since your No No last visit? Any new allergies or adverse reactions No No Had a fall/change in ADL's that may No No increase risk of falls Signs or symptoms of abuse and/or No No neglect since last visit Have you been in the hospital since your No No last visit? Has dressing in place as prescribed Yes Yes Has compression in place as prescribed N/A N/A Has offloadiing in place as prescribed N/A N/A Experienced any changes in pain level or No No management Left Footwear Regular Shoe Regular Shoe Right Footwear Regular Shoe Regular Shoe Pain Scale: 0-10 Numeric Is Patient Pain Free? Yes Yes - Nurse 1 - General Ulcer Measurement Start: 08/26/21 09:43 Freq: Status: Active Protocol: Activity Type Activity Date Activity User E-sign Co-sign Detail Recorded Client Recorded Date Recorded By Document 08/26/21 09:44 [id number] 08/26/21 09:57 KR Document 09/02/21 10:13 [facility] [id number] 09/02/21 10:18 [facility] 08/26/21 09/02/21 09:44 10:13 Wound Center Nurse 1 #2 Left medial hip -Combined with other wound No -Current Size (cm) - Length 0.3 0.5 -Current Size (cm) - Width 0.6 0.5 -Current Size (cm) - Depth 1.4 0.8 -Total Square Cm 0.18 0.25 -Epithelialization None Present -Tunneling No -Undermining/Tunneling No -Circular Undermining No -Exudate Amt Small Large -Exudate Type Serosanguineous Serosanguineous -Wound Margin Distinct, Distinct, Outline Outline Attached Attached -Granulation Amt Medium (34-66%) Large (67-100%) -Granulation Quality [place] Red -Slough/Fibrin Yes -Necrosis Amt Small (1-33%) Small (1-33%) -Necrotic Tissue Type Adherent Slough Adherent Slough -Texture (Jagruti-wound Skin Appearance) Assessed, Assessed, Scarring Scarring -Moisture (Jagruti-wound Skin Appearance) No Abnormality, Assessed Assessed -Color (Jagruti-wound Skin Appearance) No Abnormality, Assessed Assessed -Temperature (Jagruti-wound Skin No Abnormality No Abnormality Appearance) (Pt Warm) (Pt Warm) -Tenderness on Palpation (Jagruti-wound No No Skin Appearance) -Ulcer Cleansing Rinsed/ Rinsed/ Irrigated with Irrigated with Saline Saline -Foul Odor after Cleansing No No -Anesthetic Used 5% Lidocaine 5% Lidocaine Gel Gel #1 Left lateral Hip -Combined with other wound No -Current Size (cm) - Length 0.4 0.3 -Current Size (cm) - Width 1.4 1.6 -Current Size (cm) - Depth 0.1 0.1 -Total Square Cm 0.56 0.48 -Photo Taken No -Epithelialization None Present -Tunneling No -Undermining/Tunneling No -Circular Undermining No -Exudate Amt Small Medium -Exudate Type Serosanguineous Serosanguineous -Wound Margin Distinct, Distinct, Outline Outline Attached Attached -Granulation Amt Small (1-33%) -Granulation Quality [place] -Slough/Fibrin Yes -Necrosis Amt Large (67-100%) Large (67-100%) -Necrotic Tissue Type Adherent Slough Adherent Slough -Texture (Jagruti-wound Skin Appearance) Assessed, Assessed, Scarring Scarring -Moisture (Jagruti-wound Skin Appearance) No Abnormality, Assessed Assessed -Color (Jagruti-wound Skin Appearance) No Abnormality, Assessed Assessed -Temperature (Jagruti-wound Skin No Abnormality No Abnormality Appearance) (Pt Warm) (Pt Warm) -Tenderness on Palpation (Jagruti-wound No No Skin Appearance) -Ulcer Cleansing Rinsed/ Rinsed/ Irrigated with Irrigated with Saline Saline -Foul Odor after Cleansing No No -Anesthetic Used 5% Lidocaine 5% Lidocaine Gel Gel WC - Nurse 2 - General Ulcer CM Notes Start: 08/26/21 09:43 Freq: Status: Active Protocol: Activity Type Activity Date Activity User E-sign Co-sign Detail Recorded Client Recorded Date Recorded By Document 08/26/21 10:07 MW [id number] 08/26/21 10:19 MW Document 09/02/21 10:50 MW [id number] 09/02/21 10:55 MW 08/26/21 09/02/21 10:07 10:50 Wound Center Nurse 2 #2 Left medial hip -Time 10:07 10:51 -Correct Patient Yes Yes -Correct Side, Site, Position Yes Yes -Correct Procedure Yes Yes -Procedure Performed Yes Yes -Type of Procedure Debridement Debridement -Clinical Debridement Subcutaneous Subcutaneous -Tissue Removed Subcutaneous Subcutaneous -Post Debridement (cm) - Length 0.3 0.3 -Post Debridement (cm) - Width 0.5 0.6 -Post Debridement (cm) - Depth 1.1 0.1 -Total Square (Post) (cm) 0.15 0.18 -Area of Debridement (cm) - Length 0.3 0.3 -Area of Debridement (cm) - Width 0.5 0.6 -Total Square (Area) (cm) 0.15 0.18 -Tunneling No No -Undermining/Tunneling No No -Circular Undermining No No -Wound/Ulcer Outcome Not Healed Not Healed -Ulcer Cleansing Rinsed/ Rinsed/ Irrigated with Irrigated with Saline Saline -Foul Odor after Cleansing No No -Bioengineered Tissue No No -Bleeding Controlled with Pressure Pressure -Treatment Response Procedure Procedure Tolerated Well Tolerated Well -Offloading No No -Debridement - Subq, 1st 20sq cm Yes Yes #1 Left lateral Hip -Time 10:08 10:51 -Correct Patient Yes Yes -Correct Side, Site, Position Yes Yes -Correct Procedure Yes Yes -Procedure Performed Yes Yes -Type of Procedure Debridement Debridement -Clinical Debridement Subcutaneous Subcutaneous -Tissue Removed Subcutaneous Subcutaneous -Post Debridement (cm) - Length 0.5 0.4 -Post Debridement (cm) - Width 3.5 2.0 -Post Debridement (cm) - Depth 0.1 0.1 -Total Square (Post) (cm) 1.75 0.80 -Area of Debridement (cm) - Length 0.5 0.4 -Area of Debridement (cm) - Width 3.5 2.0 -Total Square (Area) (cm) 1.75 0.80 -Tunneling No No -Undermining/Tunneling No No -Circular Undermining No No -Wound/Ulcer Outcome Not Healed Not Healed -Ulcer Cleansing Rinsed/ Rinsed/ Irrigated with Irrigated with Saline Saline -Foul Odor after Cleansing No No -Bioengineered Tissue No No -Bleeding Controlled with Pressure Pressure -Treatment Response Procedure Procedure Tolerated Well Tolerated Well -Offloading No No -Debridement - Subq, 1st 20sq cm No No Pain Scale: 0-10 Numeric Is Patient Pain Free? Yes Yes - Nurse 3 - General Ulcer D/C NN Start: 08/26/21 09:43 Freq: Status: Active Protocol: Activity Type Activity Date Activity User E-sign Co-sign Detail Recorded Client Recorded Date Recorded By Document 08/26/21 10:54 [id number] 08/26/21 10:55 KR Document 09/02/21 11:02 [id number] 09/02/21 11:03 08/26/21 09/02/21 10:54 11:02 Wound Care Nurse 3 #2 Left medial hip -Ulcer Cleansing Rinsed/ Rinsed/ Irrigated with Irrigated with Saline Saline -Primary Dressing Applied Aquacel AG 4x4, Aquacel Extra Mepilex Border -Primary Dressing Covered/Secured with Dry Gauze, Secured with Tape -Aquacel Extra 1 -Aquacel AG 4x4 1 -Mepilex Border 1 #1 Left lateral Hip -Primary Dressing Applied Mepilex Border, Nugauze, Iodoform -Mepilex Border 1 -Nugauze, Iodoform 1/4 1 Pain Scale: 0-10 Numeric Is Patient Pain Free? Yes Yes - Visit Discharge Discharge Condition Stable Stable Ambulatory Status Ambulatory, Walker Walker Transportation Private Auto Private Auto Accompanied by daughter Additional Wound Wound debrided: Left lateral wound dehisced surgical wound Type of Debridement: Excisional debridement Anesthesia Used: 5% Lidocaine Gel Depth: Down to and including healthy tissue Percentage of wound debrided: 100 Instrument Used: 3mm curette Tissue Removed: Fibrin slough Severity: Limited To Skin Breakdown Amount of bleeding with debridement: None Patient tolerated procedure: Patient tolerated procedure well Assessment/Plan Assessment/Plan (1) Status post total hip replacement, left: CODE(S): Z96.642 - Presence of left artificial hip joint (2) Dehiscence of surgical wound: CODE(S): T81.31XA - Disruption of external operation (surgical) wound, not elsewhere classified, initial encounter PLAN: Left medial hip wound wash with antibacterial soap and pack with 1/2 inch iodoform gauze tightly cover with gauze and tape Left lateral hip wound cover with Aquacel extra moistened with gauze and tape. Follow-up in 1 week Follow-up in 1 week (3) Nonhealing surgical wound: CODE(S): T81.89XA - Other complications of procedures, not elsewhere classified, initial encounter
[2021-09-09 10:22] VITALS: BP 134/69; PULSE 89; TEMP 36.6
--- NOTE | 2021-09-09 12:13 | PCM.WC.PN ---
History of Present Illness Date of Service: 09/09/21 Chief Complaint: Follow-up surgical wound dehiscence History of Wound: 66-year-old white female that had a total hip replacement on the left approximately 9 weeks ago. During physical therapy noticed some openings that did not heal correctly. And was sent to us by her surgeon to see if we can get them closed. Patients are also that he could do a revision and reopen her and close her up better. She would not like to do that because its been a very rough 9 weeks for her and she is wanting go through that again. She has been packing it with silver. Progress of Wound: The measurements on the wounds are still the same though they are look better she has been able to do the packing by herself. She does have an appointment with Dr. Reynoso for surgery next Tuesday revision will be done. Subjective Subjective Patient will follow-up with us as needed till surgery Objective Data Objective Data Patient is to continue packing till seen in the OR. Basically measurements are the same for the medial opening but the lateral is healing well. Vital Signs: Vital Signs Temp Pulse Resp BP O2 Del Method 97.8 F 89 16 134/69 H Room Air 09/09/21 10:22 09/09/21 10:22 09/02/21 10:13 09/09/21 10:09/02/21 10:13 Oxygen Delivery Method Room Air Physical Exam Const oriented x3 General Appearance: cooperative Exam Limitations: no limitations HEENT normocephalic Head and Scalp: normal to inspection Face and Sinus: normal facial exam Mouth: oral and palatal mucosa normal Eyes PERRL General Eye: normal appearance of both eyes Resp normal respiratory effort Effort and Inspection: able to speak in complete sentences Auscultation: clear to auscultation bilaterally Cardio regular rate and regular rhythm Palpation: normal PMI Rate: regular rate Rhythm: regular rhythm GI Auscultation: normoactive bowel sounds Palpation: soft and no hepatosplenomegaly external exam normal Extremity normal to inspection General Extremity: normal exam except as noted Skin no rashes or lesions noted Neuro oriented x3 Psych Appearance: grossly normal Speech: normal speech Thought Content: normal thought content Judgement: judgement good Debridement Note Debridement Note Wound debrided: Medial left hip dehisced wound Laterality: Left Type of Debridement: Excisional debridement Anesthesia Used: 5% Lidocaine Gel Depth: in the subcutaneous layer Percentage of wound debrided: 100 Instrument Used: 3mm curette Tissue Removed: Fibrin Severity: Fat Layer Exposed Amount of bleeding with debridement: Mild Bleeding Controlled with: Compression and gauze Patient tolerated procedure: Patient tolerated procedure well Post-Debridement Measurements and Additional Note: Post-Debridement Measurements/Treatment - Nurse 1 - General Ulcer Assessment Start: 08/26/21 09:43 Freq: Status: Active Protocol: MIKE Activity Type Activity Date Activity User E-sign Co-sign Detail Recorded Client Recorded Date Recorded By Document 08/26/21 09:44 [id number] 08/26/21 09:57 KR Document 09/02/21 10:13 [facility] [id number] 09/02/21 10:18 [facility] Document 09/09/21 10:22 [id number] 09/09/21 10:28 KR 08/26/21 09/02/21 09/09/21 09:44 10:13 10:22 - Today's Visit Information Type of service Initial Visit Follow-up Visit Follow-up Visit (Physician/POKER PROP PLAYER (Physician/POKER PROP PLAYER ) ) Arrival Mode Ambulatory, Ambulatory, Ambulatory, Walker Walker Walker Transfer Assistance None Patient Identification Verified (Name & Yes Yes Yes ) Patient Requires Transmission-Based No Precautions Vital Signs Temperature (97.8 F-99.1 F) 98.0 F 98.4 F 97.8 F Temperature Source Temporal Temporal Temporal Pulse Rate (60-100) 80 94 89 Pulse Location Monitor Monitor Monitor Respiratory Rate (12-18) 16 Respiratory rate source Observation Oxygen Delivery Method Room Air Blood Pressure (90/60-120/80) 172/81 H 157/88 H 134/69 H Blood Pressure Mean (mm Hg) 111 111 90 Source Monitor Monitor Monitor Position Sitting Sitting Semi-Fowlers Blood Pressure Location Right Arm Left Arm Left Arm History Since Last Visit- (Skip if this is Patient's initial visit) Have you changed medications since your No No No last visit? Any new allergies or adverse reactions No No No Had a fall/change in ADL's that may No No No increase risk of falls Signs or symptoms of abuse and/or No No No neglect since last visit Have you been in the hospital since your No No No last visit? Has dressing in place as prescribed Yes Yes Yes Has compression in place as prescribed N/A N/A N/A Has offloadiing in place as prescribed N/A N/A N/A Experienced any changes in pain level or No No No management Left Footwear Regular Shoe Regular Shoe Regular Shoe Right Footwear Regular Shoe Regular Shoe Regular Shoe Pain Scale: 0-10 Numeric Is Patient Pain Free? Yes Yes Yes WC - Nurse 1 - General Ulcer Measurement Start: 08/26/21 09:43 Freq: Status: Active Protocol: Activity Type Activity Date Activity User E-sign Co-sign Detail Recorded Client Recorded Date Recorded By Document 08/26/21 09:44 KR [id number] 08/26/21 09:57 KR Document 09/02/21 10:13 [facility] [id number] 09/02/21 10:18 BM Document 09/09/21 10:22 KR [id number] 09/09/21 10:28 KR 08/26/21 09/02/21 09/09/21 09:44 10:13 10:22 Wound Center Nurse 1 #2 Left medial hip -Combined with other wound No -Current Size (cm) - Length 0.3 0.5 0.3 -Current Size (cm) - Width 0.6 0.5 0.7 -Current Size (cm) - Depth 1.4 0.8 1 -Total Square Cm 0.18 0.25 0.21 -Epithelialization None Present -Tunneling No -Undermining/Tunneling No -Circular Undermining No -Exudate Amt Small Large Large -Exudate Type Serosanguineous Serosanguineous Serosanguineous -Wound Margin Distinct, Distinct, Distinct, Outline Outline Outline Attached Attached Attached -Granulation Amt Medium (34-66%) Large (67-100%) Medium (34-66%) -Granulation Quality [place] Red Red -Slough/Fibrin Yes -Necrosis Amt Small (1-33%) Small (1-33%) Medium (34-66%) -Necrotic Tissue Type Adherent Slough Adherent Slough Adherent Slough -Texture (Jagruti-wound Skin Appearance) Assessed, Assessed, Assessed, Scarring Scarring Scarring -Moisture (Jagruti-wound Skin Appearance) No Abnormality, Assessed No Abnormality, Assessed Assessed -Color (Jagruti-wound Skin Appearance) No Abnormality, Assessed No Abnormality, Assessed Assessed -Temperature (Jagruti-wound Skin No Abnormality No Abnormality No Abnormality Appearance) (Pt Warm) (Pt Warm) (Pt Warm) -Tenderness on Palpation (Jagruti-wound No No No Skin Appearance) -Ulcer Cleansing Rinsed/ Rinsed/ Rinsed/ Irrigated with Irrigated with Irrigated with Saline Saline Saline -Foul Odor after Cleansing No No No -Anesthetic Used 5% Lidocaine 5% Lidocaine 5% Lidocaine Gel Gel Gel #1 Left lateral Hip -Combined with other wound No -Current Size (cm) - Length 0.4 0.3 0.1 -Current Size (cm) - Width 1.4 1.6 0.1 -Current Size (cm) - Depth 0.1 0.1 0.1 -Total Square Cm 0.56 0.48 0.01 -Photo Taken No -Epithelialization None Present -Tunneling No -Undermining/Tunneling No -Circular Undermining No -Exudate Amt Small Medium None Present -Exudate Type Serosanguineous Serosanguineous -Wound Margin Distinct, Distinct, Distinct, Outline Outline Outline Attached Attached Attached -Granulation Amt Small (1-33%) Small (1-33%) -Granulation Quality [place] -Slough/Fibrin Yes -Necrosis Amt Large (67-100%) Large (67-100%) None Present (0 %) -Necrotic Tissue Type Adherent Slough Adherent Slough -Texture (Jagruti-wound Skin Appearance) Assessed, Assessed, Assessed, Scarring Scarring Scarring -Moisture (Jagruti-wound Skin Appearance) No Abnormality, Assessed No Abnormality, Assessed Assessed -Color (Jagruti-wound Skin Appearance) No Abnormality, Assessed No Abnormality, Assessed Assessed -Temperature (Jagruti-wound Skin No Abnormality No Abnormality No Abnormality Appearance) (Pt Warm) (Pt Warm) (Pt Warm) -Tenderness on Palpation (Jagruti-wound No No No Skin Appearance) -Ulcer Cleansing Rinsed/ Rinsed/ Rinsed/ Irrigated with Irrigated with Irrigated with Saline Saline Saline -Foul Odor after Cleansing No No No -Anesthetic Used 5% Lidocaine 5% Lidocaine 5% Lidocaine Gel Gel Gel WC - Nurse 2 - General Ulcer CM Notes Start: 08/26/21 09:43 Freq: Status: Active Protocol: Activity Type Activity Date Activity User E-sign Co-sign Detail Recorded Client Recorded Date Recorded By Document 08/26/21 10:07 MW [id number] 08/26/21 10:19 MW Document 09/02/21 10:50 MW [id number] 09/02/21 10:55 MW Document 09/09/21 10:40 MW [id number] 09/09/21 10:44 MW 08/26/21 09/02/21 09/09/21 10:07 10:50 10:40 Wound Center Nurse 2 #2 Left medial hip -Time 10: 10:51 10:43 -Correct Patient Yes Yes Yes -Correct Side, Site, Position Yes Yes Yes -Correct Procedure Yes Yes Yes -Procedure Performed Yes Yes Yes -Type of Procedure Debridement Debridement Debridement -Clinical Debridement Subcutaneous Subcutaneous Subcutaneous -Tissue Removed Subcutaneous Subcutaneous Subcutaneous -Post Debridement (cm) - Length 0.3 0.3 0.4 -Post Debridement (cm) - Width 0.5 0.6 0.8 -Post Debridement (cm) - Depth 1.1 0.1 1.5 -Total Square (Post) (cm) 0.15 0.18 0.32 -Area of Debridement (cm) - Length 0.3 0.3 0.4 -Area of Debridement (cm) - Width 0.5 0.6 0.8 -Total Square (Area) (cm) 0.15 0.18 0.32 -Tunneling No No No -Undermining/Tunneling No No No -Circular Undermining No No Yes -Wound/Ulcer Outcome Not Healed Not Healed Not Healed -Ulcer Cleansing Rinsed/ Rinsed/ Rinsed/ Irrigated with Irrigated with Irrigated with Saline Saline Saline -Foul Odor after Cleansing No No No -Bioengineered Tissue No No No -Bleeding Controlled with Pressure Pressure Pressure -Treatment Response Procedure Procedure Procedure Tolerated Well Tolerated Well Tolerated Well -Offloading No No No -Debridement - Subq, 1st 20sq cm Yes Yes Yes #1 Left lateral Hip -Time 10:08 10:51 10:43 -Correct Patient Yes Yes Yes -Correct Side, Site, Position Yes Yes Yes -Correct Procedure Yes Yes Yes -Procedure Performed Yes Yes Yes -Type of Procedure Debridement Debridement Debridement -Clinical Debridement Subcutaneous Subcutaneous Subcutaneous -Tissue Removed Subcutaneous Subcutaneous Subcutaneous -Post Debridement (cm) - Length 0.5 0.4 0.4 -Post Debridement (cm) - Width 3.5 2.0 0.9 -Post Debridement (cm) - Depth 0.1 0.1 0.1 -Total Square (Post) (cm) 1.75 0.80 0.36 -Area of Debridement (cm) - Length 0.5 0.4 0.4 -Area of Debridement (cm) - Width 3.5 2.0 0.9 -Total Square (Area) (cm) 1.75 0.80 0.36 -Tunneling No No No -Undermining/Tunneling No No No -Circular Undermining No No No -Wound/Ulcer Outcome Not Healed Not Healed Not Healed -Ulcer Cleansing Rinsed/ Rinsed/ Rinsed/ Irrigated with Irrigated with Irrigated with Saline Saline Saline -Foul Odor after Cleansing No No No -Bioengineered Tissue No No No -Bleeding Controlled with Pressure Pressure Pressure -Treatment Response Procedure Procedure Procedure Tolerated Well Tolerated Well Tolerated Well -Offloading No No No -Debridement - Subq, 1st 20sq cm No No No Pain Scale: 0-10 Numeric Is Patient Pain Free? Yes Yes Yes WC - Nurse 3 - General Ulcer D/C NN Start: 08/26/21 09:43 Freq: Status: Active Protocol: Activity Type Activity Date Activity User E-sign Co-sign Detail Recorded Client Recorded Date Recorded By Document 08/26/21 10:54 [id number] 08/26/21 10:55 KR Document 09/02/21 11:02 [id number] 09/02/21 11:03 KR Document 09/09/21 11:03 [place] [id number] 09/09/21 11:07 PR 08/26/21 09/02/21 09/09/21 10:54 11:02 11:03 Wound Care Nurse 3 #2 Left medial hip -Ulcer Cleansing Rinsed/ Rinsed/ Rinsed/ Irrigated with Irrigated with Irrigated with Saline Saline Saline -Foul Odor after Cleansing No -Negative Pressure Wound Therapy N/A -Primary Dressing Applied Aquacel AG 4x4, Aquacel Extra Mepilex Border -Other Dressing iodoform packed own bordered dressing -Primary Dressing Covered/Secured with Dry Gauze, Secured with Tape -Aquacel Extra 1 -Aquacel AG 4x4 1 -Mepilex Border 1 #1 Left lateral Hip -Ulcer Cleansing Rinsed/ Irrigated with Saline -Foul Odor after Cleansing No -Negative Pressure Wound Therapy N/A -Primary Dressing Applied Mepilex Border, Aquacel Extra Nugauze, Iodoform -Other Dressing own border dressing -Aquacel Extra 1 -Mepilex Border 1 -Nugauze, Iodoform 1/4 1 Pain Scale: 0-10 Numeric Is Patient Pain Free? Yes Yes Yes WC - Visit Discharge Discharge Condition Stable Stable Ambulatory Status Ambulatory, Walker Walker Transportation Private Auto Private Auto Accompanied by daughter Additional Wound Wound debrided: Left lateral hip wound Laterality: Left Type of Debridement: Excisional debridement Anesthesia Used: 5% Lidocaine Gel Depth: Down to and including healthy tissue Percentage of wound debrided: 100 Instrument Used: 5mm curette Tissue Removed: Fibrin Severity: Limited To Skin Breakdown Amount of bleeding with debridement: Mild Bleeding Controlled with: Compression and gauze Patient tolerated procedure: Patient tolerated procedure well Assessment/Plan Assessment/Plan (1) Status post total hip replacement, left: CODE(S): Z96.642 - Presence of left artificial hip joint (2) Dehiscence of surgical wound: CODE(S): T81.31XA - Disruption of external operation (surgical) wound, not elsewhere classified, initial encounter PLAN: Left medial hip wound wash with antibacterial soap and pack with 1/2 inch iodoform gauze tightly cover with gauze and tape Left lateral hip wound cover with Aquacel extra moistened with gauze and tape. Transfer of care next Tuesday to Dr. Reynoso for revision of the surgical area (3) Nonhealing surgical wound: CODE(S): T81.89XA - Other complications of procedures, not elsewhere classified, initial encounter
== END 2021-09-09 16:41 | disposition home or self-care (01) ==
LOC: WC 10:15
PROVIDERS: PCP Family Medicine; Visit Provider Nurse Practitioner
DX: T81.31XA Disruption of external operation (surgical) wound, not elsewhere classified, initial encounter (principal); J44.9 Chronic obstructive pulmonary disease, unspecified; I11.0 Hypertensive heart disease with heart failure; I50.32 Chronic diastolic (congestive) heart failure; E11.9 Type 2 diabetes mellitus without complications; D50.9 Iron deficiency anemia, unspecified; E78.00 Pure hypercholesterolemia, unspecified; T81.89XA Other complications of procedures, not elsewhere classified, initial encounter; Z96.642 Presence of left artificial hip joint; Z87.891 Personal history of nicotine dependence; E78.5 Hyperlipidemia, unspecified; Z79.01 Long term (current) use of anticoagulants
CPT/HCPCS: 11042; 99203; G0463

== ENCOUNTER 2021-09-12 12:05 | Emergency (ER) | payer MEDICARE, OTHER, SELFPAY ==
[2021-09-12 12:07] VITALS: BP 144/69; PULSE 86; RESP 22; TEMP 37.6; O2SAT 100; BMI 43.4
--- NOTE | 2021-09-12 12:35 | EDS_ITS ---
HPI History of Present Illness Chief Complaint: General Illness Informant: patient Onset/Context/Timing Onset: Yesterday Context: Gradual Onset Timing: Continuous Quality: Aching Location: Head and neck Current Severity: Severe Maximum Severity: Severe Worsened by: Coughing, light Relieved by: Nothing Narrative Narrative: Patient presents with a headache that began yesterday. Patient states it has gradually gotten worse. Patient states it is generalized over her entire head and into her neck. Patient describes it as aching. Patient admits to a fever of 103 at home. Patient also admits to some subjective chills. Patient also admits to some rhinorrhea. Patient admits to some nausea but denies any vomiting. Patient admits to a cough but denies any sputum production. [facility] Medical History Abnormal chest CT Acute bronchiolitis Acute respiratory failure ALEXYS (acute kidney injury) Allergic rhinitis Allergic rhinitis Anemia Anxiety Aspiration into airway Asthma Asthma Asthma Atrial fibrillation Atrial fibrillation with rapid ventricular response Atrial tachycardia Back pain Benign essential HTN Bronchiectasis Bronchiectasis with (acute) exacerbation Cardiology follow-up encounter Cavitary lesion of lung Cellulitis of right lower extremity Chronic diastolic congestive heart failure Chronic diastolic heart failure Chronic respiratory failure Coarse tremors COLD (chronic obstructive lung disease) Congestive heart failure (CHF) COPD with acute exacerbation Cough Diabetes Diabetes mellitus DVT (deep venous thrombosis) Easy bruising Former smoker Gastroesophageal reflux disease Gastroesophageal reflux disease HCAP (healthcare-associated pneumonia) High cholesterol History of COPD History of diabetes mellitus History of DVT (deep vein thrombosis) History of echocardiogram History of edema 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 History of renal disease History of stress test Hx pulmonary embolism Hyperlipidemia Hyperlipidemia Hypertension Hypothyroidism Hypothyroidism Hypoxemia Injury of back Insomnia Iron deficiency anemia Kidney disease Lung nodule Migraine headache Morbid obesity MRSA pneumonia Obesity GAGAN (obstructive sleep apnea) Pain of left hip Palpitations Paroxysmal atrial fibrillation Paroxysmal atrial tachycardia Pneumonia Pneumonia due to Pseudomonas Precordial chest pain Pulmonary embolism PVD (peripheral vascular disease) Right foot pain Septic shock Severe sepsis Shortness of breath Shortness of breath on exertion Steroid myopathy Tachycardia Thrush, oral Umbilical hernia Venous thromboembolism (VTE) Vitamin D deficiency Walker as ambulation aid Weakness Wears glasses Home Medications levothyroxine 25 mcg tablet 25 mcg PO DAILY@0600 thyroid 01/04/20 [History Last Taken 07/04/21 05:51] albuterol sulfate 2.5 mg/3 mL (0.083 %) solution for nebulization 2.5 mg (3 mL) inhalation Q4H PRN breathing #180 vials 03/17/20 [Rx Last Taken 07/03/21 19:16] famotidine 40 mg tablet 40 mg PO QHS reflux 04/02/20 [History Last Taken 07/03/21 23:04] cholecalciferol (vitamin D3) 50 mcg (2,000 unit) capsule 50 mcg PO DAILY SUPPLEMENT 09/19/20 [History Last Taken 07/04/21 05:54] furosemide 40 mg tablet (Lasix) 40 mg PO BID water pill 09/19/20 [History Last Taken 07/04/21 05:52] esomeprazole magnesium 40 mg capsule,delayed release (Nexium) 40 mg PO DAILY reflux 10/13/20 [History Last Taken 07/04/21 05:52] potassium chloride 20 mEq tablet,extended release(part/cryst) 20 meq PO BID supplement 10/13/20 [History Last Taken 07/03/21 07:56] flecainide 50 mg tablet 50 mg PO BID HEART #180 tabs 02/19/21 [Rx Last Taken 07/04/21 05:54] lactobacillus combination no.8 3 billion cell capsule 1 cell PO DAILY probiotic 03/25/21 [History Last Taken 07/04/21 06:03] apixaban 5 mg tablet (Eliquis) 5 mg PO BID anticoagulant 04/01/21 [History Last Taken 07/04/21 05:51] diltiazem HCl 180 mg capsule,extended release 24 hr (Cardizem CD) 180 mg PO DAILY heart 04/01/21 [History Last Taken 07/04/21 05:52] montelukast 10 mg tablet (Singulair) 10 mg PO QHS asthma 04/01/21 [History Last Taken 07/03/21 23:05] atorvastatin 10 mg tablet (Lipitor) 10 mg PO QHS cholesterol 06/26/21 [History Last Taken 07/03/21 23:03] ferrous sulfate 325 mg (65 mg iron) tablet 325 mg PO DAILY anemia 06/26/21 [History Last Taken 07/03/21 11:43] fluticasone propionate 230 mcg-salmeterol 21 mcg/actuation HFA inhaler (Advair HFA) 2 puff inhalation BID lungs 06/26/21 [History Last Taken 07/04/21 05:53] guaifenesin 1,200 mg tablet, extended release 12 hr (Mucus Relief ER) 1,200 mg PO BID congestion 06/26/21 [History Last Taken 07/04/21 05:51] ipratropium bromide 21 mcg (0.03 %) nasal spray 2 spray intranasal BID allergies 06/26/21 [History Last Taken Unknown] acetaminophen 500 mg tablet 1,000 mg PO Q8 PRN pain of temp > 101 #0 tabs 07/14/21 [Rx Last Taken 07/04/21 05:51] acidophilus 25 million cell-pectin, citrus 100 mg tablet 1 tab PO BID #0 tabs 07/14/21 [Rx Last Taken Unknown] Allergy/AdvReac Type Severity Reaction Status Date / Time adhesive Allergy SKIN Verified 09/12/21 12:07 TEARS. PAPER TAPE OK azithromycin [From Zithromax] Allergy Rash Verified 09/12/21 12:07 cefuroxime sodium Allergy Rash Verified 09/12/21 12:07 [From Zinacef] clindamycin Allergy Hives Verified 09/12/21 12:07 nitrofurantoin Allergy Rash Verified 09/12/21 12:07 macrocrystalline [From Macrodantin] Sulfa (Sulfonamide Allergy Rash Verified 09/12/21 12:07 Antibiotics) atenolol AdvReac Severe Peripheal Verified 09/12/21 12:07 edema & cough metoprolol [From Toprol XL] AdvReac Severe Peripheral Verified 09/12/21 12:07 edema & cough duloxetine [From Cymbalta] AdvReac Intermediate made me Verified 09/12/21 12:07 feel really sick Corticosteroids AdvReac Other Verified 09/12/21 12:07 (Glucocorticoids) oxycodone HCl [From Percocet] AdvReac Vomiting Verified 09/12/21 12:07 Family History Mother Hypertension Diabetes Heart disease Pulmonary embolism Father Perforated ulcer Respiratory failure Sister Asthma Hypertension Surgical History H/O section H/O foot surgery H/O hernia repair H/O shoulder surgery H/O: hysterectomy History of appendectomy History of cardioversion (~12/2016) History of left heart catheterization Hx of vein stripping S/P hip replacement S/P hysterectomy Status post hip replacement Social History household members: none Smoking Status: Former smoker quit date: 02/14/75 pack-years: 3 second hand exposure: No alcohol intake: never substance use type: does not use caffeine: No what type of physical activity do you participate in: none ROS ROS ED Constitutional Constitutional ED: Reports chills and fever(s) Eyes Eyes: Denies blurry vision or change in vision ENT ENT ED: Reports rhinorrhea; Denies sore throat Cardiovascular Cardiovascular: Denies chest pain or palpitations Respiratory/Chest Respiratory/Chest: Reports cough; Denies dyspnea Gastrointestinal Gastrointestinal: Reports nausea; Denies vomiting Genitourinary Genitourinary ED: Denies dysuria or hematuria Musculoskeletal Musculoskeletal: Reports neck pain; Denies back pain Integumentary Denies abscess or rash Neurologic Neurologic: Reports headache(s); Denies weakness Allergic/Immunologic Allergic/Immunologic ED: Denies mouth swelling or urticaria EXAM Physical Exam Const Vital Signs: 09/12/21 12:07 09/12/21 12:06 09/12/21 14:06 Temperature 99.6 F H 99.4 F H Temperature Source Temporal Temporal Pulse Rate 86 97 Respiratory Rate 22 H 20 H Respiratory Pattern Normal Blood Pressure 144/69 H Blood Pressure Mean 94 Pulse Ox 100 98 Oxygen Delivery Method Room Air Room Air 09/12/21 14:35 Temperature 102.6 F H Temperature Source Oral Pulse Rate 86 Respiratory Rate 18 Respiratory Pattern Blood Pressure 145/72 H Blood Pressure Mean 96 Pulse Ox 96 Oxygen Delivery Method Room Air Positive well nourished, well developed and obese General Appearance ED: well developed and NAD Nutritional Appearance: obese HEENT Reports moist mucous membranes Neck supple and no JVD General: tenderness Resp normal respiratory effort and clear to auscultation bilaterally Cardio regular rate, regular rhythm and no murmurs GI normal to inspection, nondistended, normoactive bowel sounds and non-tender Palpation: soft Extremity normal to inspection General Extremety ED: Negative for edema or tenderness General Extremity: Negative for edema Neuro oriented x3, CN's II-XII intact bilaterally and no sensory deficits noted Sensorium / Orientation: alert Motor Exam: strength 5/5 throughout Psych mental status grossly normal Skin no rashes or lesions noted MDM MDM MDM Narrative Medical decision making narrative: Patient was given IV fluids, Reglan, and Benadryl. CT scan of the brain was obtained. There is no acute intracranial abnormality. This was interpreted by the radiologist and reviewed by myself. CBC shows a normal white blood cell count of 9.3. Hemoglobin was 10.9 and hematocrit was 36.9. These are consistent with prior results. Comprehensive metabolic profile showed a slightly elevated creatinine of 1.35 but this is also consistent with prior results. Pro time was 16.6. INR was 1.4. PTT was normal. Urinalysis does not show any evidence of urinary tract infection. Patient states she had some improvement initially. Patient states that when she tried to stand up her headache became worse again. Patient was given a dose of Toradol here. Patient was advised of her findings. Patient is feeling better after this. Patient wants to go home. Patient was advised that her fever may be coming from a viral illness. I do not see a bacterial source for her fever. Patient was instructed to continue Tylenol and ibuprofen as needed for her fever at home. Patient was instructed to return if worse in any way. Patient understood and was agreeable with the plan. All questions were answered. Lab Data Labs: Laboratory Results - last 24 hr 09/12/21 09/12/21 09/12/21 13:12 13:12 13:23 WBC 9.3 RBC 3.90 L Hgb 10.9 L Hct 36.9 L MCV 94.6 MCH 27.9 MCHC 29.5 L RDW Std Deviation 49.8 H RDW Coeff of Lanre 14.6 Plt Count 445 MPV 10.6 Immature Gran % (Auto) 0.500 Neut % (Auto) 71.2 H Lymph % (Auto) 18.5 L Sterling % (Auto) 7.6 Eos % (Auto) 1.8 Baso % (Auto) 0.4 Absolute Neuts (auto) 6.6 Absolute Lymphs (auto) 1.73 Nucleated RBC % 0 PT Cancelled INR Cancelled APTT Cancelled Sodium 141 Potassium 4.2 Chloride 110 H Carbon Dioxide 28.0 Anion Gap 3 L BUN 18 Creatinine 1.35 H Estim Creat Clear Calc 30.51 Est GFR (MDRD) Af Amer 50 L Est GFR (MDRD) Non-Af 42 L BUN/Creatinine Ratio 13.3 Glucose 142 H Calcium 9.3 Total Bilirubin 0.40 AST 15 ALT 17 Alkaline Phosphatase 149 H Total Protein 7.9 Albumin 3.0 L Globulin 4.9 H Albumin/Globulin Ratio 0.6 L Urine Color Urine Clarity Urine pH Ur Specific [place] Urine Protein Urine Glucose (UA) Urine Ketones Urine Occult Blood Urine Nitrite Urine Bilirubin Urine Urobilinogen Ur Leukocyte Esterase Urine RBC Urine WBC Ur Squamous Epith Cells Urine Bacteria Urine Mucus 09/12/21 09/12/21 14:31 14:50 WBC RBC Hgb Hct MCV MCH MCHC RDW Std Deviation RDW Coeff of Lanre Plt Count MPV Immature Gran % (Auto) Neut % (Auto) Lymph % (Auto) [place] % (Auto) Eos % (Auto) Baso % (Auto) Absolute Neuts (auto) Absolute Lymphs (auto) Nucleated RBC % PT 16.6 H INR 1.4 APTT 24.9 Sodium Potassium Chloride Carbon Dioxide Anion Gap BUN Creatinine Estim Creat Clear Calc Est GFR (MDRD) Af Amer Est GFR (MDRD) Non-Af BUN/Creatinine Ratio Glucose Calcium Total Bilirubin AST ALT Alkaline Phosphatase Total Protein Albumin Globulin Albumin/Globulin Ratio Urine Color Yellow Urine Clarity Clear Urine pH 7.0 Ur Specific [place] 1.005 Urine Protein Negative Urine Glucose (UA) Normal Urine Ketones Negative Urine Occult Blood 25 H Urine Nitrite Negative Urine Bilirubin Negative Urine Urobilinogen Normal Ur Leukocyte Esterase 25 H Urine RBC 0-5 SEEN Urine WBC 0-5 SEEN Ur Squamous Epith Cells 0-5 SEEN Urine Bacteria 0 SEEN Urine Mucus 0 SEEN Radiography Diagnostic Testing: Clinical Impression(s) from Imaging Studies Brain CT 09/12/21 12:39 IMPRESSION: No acute intracranial hemorrhage or mass effect. Electronically Signed: Scottie Pena MD ([place]) at 14:14 EDT Reading Location ID and State: [facility] / [place] , Service support , Discharge Plan Triage Chief Complaint: General Illness ED Provider: Joo Summers Dx/Rx/DC Orders Clinical Impression: Headache, Febrile illness Instructions: ED FUO Adult, ED, Migraine (Classical) Prescriptions: No Action famotidine 40 mg tablet 40 mg PO QHS esomeprazole magnesium [Nexium] 40 mg capsule,delayed release(DR/EC) 40 mg PO DAILY potassium chloride 20 mEq tablet,ER particles/crystals 20 meq PO BID lactobacillus combination no.8 3 billion cell capsule 1 cell PO DAILY levothyroxine 25 mcg tablet 25 mcg PO DAILY@0600 Label Comments: thyroid furosemide [Lasix] 40 mg tablet 40 mg PO BID cholecalciferol (vitamin D3) 50 mcg (2,000 unit) Capsule 50 mcg PO DAILY diltiazem HCl [Cardizem CD] 180 mg capsule,extended release 24hr 180 mg PO DAILY Rx Instructions: Hold for heart less than 60 or systolic blood pressure less than 100 mmHg. montelukast [Singulair] 10 mg tablet 10 mg PO QHS Eliquis 5 mg tablet 5 mg PO BID atorvastatin [Lipitor] 10 mg tablet 10 mg PO QHS ferrous sulfate 325 MG tablet 325 mg PO DAILY Rx Instructions: Take 1 hour before doxycycline or in empty stomach while patient is on doxycycline to avoid drug drug interaction. ipratropium bromide 21 mcg (0.03 %) spray,non-aerosol 2 spray intranasal BID Rx Instructions: administer into each nostril Advair HFA 230-21 mcg/actuation HFA aerosol inhaler 2 puff INHALATION BID Mucus Relief ER 1,200 mg tablet extended release 12hr 1,200 mg PO BID acidophilus-pectin, citrus 25 million cell -100 mg Tablet 1 tab PO BID Qty: 0 0RF acetaminophen 500 mg tablet 1,000 mg PO Q8 PRN (Reason: pain of temp > 101) Qty: 0 0RF albuterol sulfate 2.5 mg /3 mL (0.083 %) solution for nebulization 2.5 mg INHALATION Q4H PRN Qty: 180 6RF Rx Instructions: Use q4 hours and PRN for wheezing flecainide 50 mg tablet 50 mg PO BID Qty: 180 3RF Primary Care Provider: Ervin Donnelly Referrals: Ervin Donnelly MD [Primary Care Provider] - 3-5 Days Disposition Disposition: Home, Self Care
--- NOTE | 2021-09-12 12:39 | CT_ITS ---
STUDY: CT BRAIN WITHOUT CONTRAST REASON FOR EXAM: Female, 66 years old. Headache RADIATION DOSAGE (If Supplied By Facility): CTDIvol = ( 44.99 ) mGy, DLP = ( 779.24 ) mGycm TECHNIQUE: Transaxial CT imaging of the brain was performed without administration of intravenous contrast material. Individualized dose optimization techniques were used for this CT. COMPARISON: 01/17/2017 FINDINGS: Normal soft tissue structures. Normal calvarium. There is mild cerebral atrophy with widening of the extra-axial spaces and ventricular dilatation. There are areas of decreased attenuation within the white matter tracts of the supratentorial brain, consistent with microvascular disease changes. Normal basal ganglia and thalami. Normal brainstem. Normal cerebellum. There is no intracranial hemorrhage. There are no findings of an acute ischemic infarction. Normal visualized paranasal sinuses. CT/Brain/Head without Contrast IMPRESSION: No acute intracranial hemorrhage or mass effect. Electronically Signed: Scottie Pena MD ([place]) at 14:14 EDT ,
[2021-09-12] MEDS: 0.9% Normal Saline 1,000 ML 999 ML IV (13:21)
[2021-09-12] MEDS: DiphenhydrAMINE 50 MG/ML Syringe 25 MG IV (13:21)
[2021-09-12] MEDS: Metoclopramide 10 MG/2 ML Vial IV (13:22)
[2021-09-12 13:48] LABS: ALB/GLOB Ratio 0.6 RATIO (0.9-2.4); AST(SGOT) 15 U/L (15-37); Alanine Aminotransfer ALT/SGPT 17 U/L (13-56); Alkaline Phosphatase 149 U/L (45-117); Anion Gap 3 (5-15); BUN 18 mg/dL (7-18); BUN/Creat Ratio 13.3 RATIO (10-20); Calcium,Total 9.3 mg/dL (8.5-10.1); Chloride 110 mmol/L (98-107); Creatinine, Serum 1.35 mg/dL (0.55-1.02); EST Glomerular Filtration Rate 42 mL/min (>60); Est Glom Filt Rate - Afr Amer 50 mL/min (>60); Estimated Creatinine Clearance 30.51 ml/min; Globulin 4.9 g/dL (2.2-4.2); Glucose 142 mg/dL (74-106); Potassium 4.2 mmol/L (3.5-5.1); Protein, Total 7.9 g/dL (6.4-8.2); Sodium Level 141 mmol/L (136-145)
[2021-09-12 13:59] LABS: Absolute Lymphocyte Count 1.73 X10^3/uL (0.83-4.51); Absolute Neutrophil Count 6.6 X10^3/uL (2.0-7.7); Basophil# 0.04 X10^3/uL; Basophil% 0.4 % (0-1); Eosinophil# 0.17 X10^3/uL; Eosinophils% 1.8 % (0-5); Hematocrit 36.9 % (37-47); Hemoglobin 10.9 g/dL (12.0-15.0); Lymphocyte # 1.73 X10^3/ul (0.83-4.51); Lymphocyte % 18.5 % (19-41); Mean Corp Hgb Conc 29.5 g/dL (32-36); Mean Corpuscular Hgb 27.9 pg (27.0-32.0); Mean Corpuscular Volume 94.6 fL (81-99); Mean Platelet Vol. 10.6 fl (6.2-12.0); Monocyte# 0.71 X10^3/uL; Monocyte% 7.6 % (0-10); NRBC Flagged by Analyzer 0 % (0-5); Neutrophil # 6.64 X10^3/uL (2.7-7.7); Neutrophil % 71.2 % (47-70); Platelet Count 445 K/mm3 (150-450); RBC Distribution Width CV 14.6 % (11.6-14.6); RBC Distribution Width SD 49.8 fl (35.1-43.9); White Blood Count 9.3 K/mm3 (4.4-11.0)
[2021-09-12 14:06] VITALS: PULSE 97; RESP 20; TEMP 37.4; O2SAT 98
--- NOTE | 2021-09-12 14:28 | NURSING ---
COAGS HEMOLIZED PER LAB
[2021-09-12 14:35] VITALS: BP 145/72; PULSE 86; RESP 18; TEMP 39.2; O2SAT 96
[2021-09-12 14:36] LABS: Bacteria 0 SEEN /hpf (None Seen); Mucous, Urine 0 SEEN /hpf (<or=2+)
[2021-09-12] MEDS: Ketorolac 15 MG/ML Vial IV (14:39)
[2021-09-12 14:47] LABS: Color, Urine Yellow (Yellow); Glucose, Dipstick Normal (Normal); Ketone-Dipstick Negative (Negative); Leukocyte Esterase-Dipstick 25 /ul (Negative); Nitrite-Dipstick Negative (Negative); Occult Blood-Urine 25 /ul (Negative); Protein-Dipstick Negative (Negative); Specific Gravity, Urine 1.005 (1.002-1.030); Urine Bilirubin Dipstick Negative (Negative); Urine Clarity Clear (Clear); Urine Urobilinogen Normal (Normal)
[2021-09-12 14:50] LABS: Red Blood Cells-Urine 0-5 SEEN /hpf (0-5); Squamous Epithelial Cells - UA 0-5 SEEN /hpf (5-10); White Blood Cells 0-5 SEEN /hpf (0-5)
[2021-09-12 15:14] LABS: International Normalized Ratio 1.4; Prothrombin Time (Protime)PT. 16.6 SECONDS (11.7-14.9)
[2021-09-12 15:15] LABS: Partial Thromboplast Time 24.9 Seconds (24.1-36.2)
[2021-09-12 16:20] VITALS: BP 134/78; PULSE 88; RESP 18; TEMP 37.6; O2SAT 99
== END 2021-09-12 16:23 | disposition home or self-care (01) ==
PROVIDERS: Emergency Provider Emergency Medicine; PCP Family Medicine; Visit Provider Emergency Medicine
DX: R51.9 Headache, unspecified (principal); I48.0 Paroxysmal atrial fibrillation; B34.9 Viral infection, unspecified; E66.9 Obesity, unspecified; G47.33 Obstructive sleep apnea (adult) (pediatric); Z87.891 Personal history of nicotine dependence; Z86.711 Personal history of pulmonary embolism; Z86.718 Personal history of other venous thrombosis and embolism
CPT/HCPCS: 70450; 80053; 81001; 85025; 85610; 85730; 87428; 96374; 96375; 99283; A4216

== ENCOUNTER 2021-09-16 12:16 | Day surgery (SDC) | payer MEDICARE, OTHER, SELFPAY ==
[2021-09-16 12:50] VITALS: BP 141/66; PULSE 82; RESP 18; TEMP 36.7; O2SAT 100; BMI 42.5
[2021-09-16] MEDS: Lactated Ringers 1,000 ML 15 ML IV (12:55)
--- NOTE | 2021-09-16 14:15 | WND_PTH ---
PATIENT: LAURA SERRANO LOC: [facility] [place] U#:[id number] AGE/SX: 66/F ROOM: RE09/16/[address]: Dr. Nathaniel Reynoso MD : [id number] BED: DIS: 09/16/2021 SPEC #: [id number] RECD: 09/17/21 13:33 STATUS: DELVIN REGenesis #: [id number] GAYLA: 09/16/21 14:[address]: Nathaniel Reynoso DEPT: SURGICAL PATHOLOGY RECD BY: Amy Campbell ENTERED: 09/17/21 13:43 SP TYPE: Wound OTHR DR: Dr. Terry Donnelly MD Tissues: Hip, NOS Procedures: Surgery Specimen Level III HEADER OPERATION: Irrigation and debridement superficial hip wound, excision PRE-OP DIAGNOSIS: Disruption of external operation wound, persistent post-procedural fistula TISSUE SUBMITTED: Sinus tract left hip MICROSCOPIC DIAGNOSIS Sinus tract left hip, excision: Consistent with sinus tract with associated acute and chronic inflammation and granulation tissue reaction. CARISSA:mel 09/18/2021 MICROSCOPIC DESCRIPTION Slides are reviewed. GROSS DESCRIPTION Received in fixative is one container labeled with the patient's name and designated sinus tract left hip. The specimen consists of a piece of skin with underlying tissue measuring 3 x 0.5 cm and up to 1.5 cm in thickness. The specimen is bisected and reveals a sinus tract measuring up to a depth of 1 cm. [employer] Member sections are submitted in two cassettes. / CARISSA:mel 09/17/2021 TC:2 CPT: 97113
[2021-09-16] MEDS: Cefazolin 2 GM in 0.9% Normal Saline 100 ML IV (15:02)
--- NOTE | 2021-09-16 16:04 | OP.PCM_ITS ---
Report of Operation Date of Procedure: 09/16/21 Pre-Operative Diagnosis: Left hip superficial draining sinus Post-Operative Diagnosis: Left hip superficial draining sinus with underlying small seroma Surgery/Procedure Performed:: Left hip excision of draining sinus [address], seroma evacuation Description of Surgical Findings:: Small seroma was found. Area of incision could be undermined this was opened. Surgeon: Nathaniel Reynoso draw bench operator helper: None Type of Anesthesia: General Anesthesiologist: Jasper Hightower Special Medications: Jez Specimen's removed: Draining sinus sent to pathology Estimated Blood Loss (mL): 10 Fluids Replaced: 600 mL crystalloid Description of Procedure: On the date of the procedure patient's left hip was marked in the preoperative area. Patient was brought back to the operating room where they were transferred to the table. Anesthesia assumed control of the C-spine airway. Anesthesia remained in control throughout the remainder the procedure. After anesthesia was administered all bony prominences were identified well-padded and patient was positioned in the supine position. At this point the left lower extremity was prepped. The thigh area with a small open draining sinus was prepped with Betadine prep and the remainder was prepped with chlorhexidine. After prepping the leg surgeon scrubbed and then reentered the room. After sterilely prepping and draping the leg timeout was called and everyone agreed upon the side, the site, the seizure to perform, patient identity and antibiotics given. At this point incision was marked out to ellipse a small eschar laterally and the draining sinus. Sharp dissection was taken using a scalpel excising both these areas. The area between the eschar and the sinus cavity undermined however the drains are sinus and connecting seroma only tract about 3 cm deep. There was no tracking to the fascia. The remainder the fatty layer was healed. We probed probe this area and could not track deep both with our finger and a hemostat. All remaining seroma lining was excised. The wound was copiously irrigate out with normal saline. This was followed by dilute Betadine lavage, chlorhexidine lavage and more normal saline. Once this was done careful attention was paid to the wound closure. We closed in a layered lozano fashion closing the deepest fatty layer with #1 Vicryl. 2-0 Vicryl for subcuticular layer and 2-0 Monocryl barbed suture for reinforcement of the subcuticular layer. Finally 2 oh nylons were used to help make sure the skin was everted and heal appropriately. There is minimal skin tension on the repair. Sterile silver dressing was placed. Patient was awakened anesthesia transferred to the PACU for recovery. Patient was eventually discharged home after meeting criteria. Postop plan: Patient will follow up in the office in 2 weeks for wound check and suture removal as appropriate. Complications No intraoperative complications Admit VTE Documentation VTE Present on Admission: No VTE Pharm Prophylaxis ordered?: No Reason prophylaxis not ordered:: Procedure Not Indicated
[2021-09-16] MEDS: Ketorolac 15 MG/ML Vial IV (16:07)
[2021-09-16 16:15] VITALS: BP 133/96; BP 141/66; PULSE 79; RESP 16; TEMP 36.5; O2SAT 100
[2021-09-16 16:30] VITALS: BP 123/65; BP 141/66; PULSE 71; RESP 16; O2SAT 97
[2021-09-16 16:40] VITALS: BP 121/101; BP 141/66; PULSE 70; RESP 16; TEMP 36.4; O2SAT 100
[2021-09-16 17:36] VITALS: BP 126/70; BP 141/66; PULSE 69; RESP 20; TEMP 37.1; O2SAT 97
== END 2021-09-16 18:00 | disposition home or self-care (01) ==
LOC: SDC 12:16 → AC 12:18
PROVIDERS: Anesthesiology; PCP Family Medicine; Referring Provider Specialist; Visit Provider Specialist
PROC: (CPT 10140; principal; 2021-09-16 13:50)
DX: Z47.1 Aftercare following joint replacement surgery (principal); E66.01 Morbid (severe) obesity due to excess calories; Z68.41 Body mass index [BMI] 40.0-44.9, adult; E11.9 Type 2 diabetes mellitus without complications; N18.31 Chronic kidney disease, stage 3a; M16.12 Unilateral primary osteoarthritis, left hip; Z96.642 Presence of left artificial hip joint; T81.31XA Disruption of external operation (surgical) wound, not elsewhere classified, initial encounter; T81.83XA Persistent postprocedural fistula, initial encounter; Z71.3 Dietary counseling and surveillance; Z87.891 Personal history of nicotine dependence; J45.909 Unspecified asthma, uncomplicated; I12.9 Hypertensive chronic kidney disease with stage 1 through stage 4 chronic kidney disease, or unspecified chronic kidney disease; E03.9 Hypothyroidism, unspecified; Z86.718 Personal history of other venous thrombosis and embolism; Z86.711 Personal history of pulmonary embolism
CPT/HCPCS: 10140; 00400; 84443; 88304; 88305; J7120; J2405

== ENCOUNTER → 2021-11-03 | Outpatient (CLI) | payer MEDICARE, OTHER, SELFPAY ==
--- NOTE | 2021-11-03 11:32 | RAD_ITS ---
INDICATION: COVID EXAMINATION/TECHNIQUE: X-RAY - XR Chest 2 Views COMPARISON: 05/12/2021. FINDINGS: LINES/DEVICES: None. LUNGS: Biapical prominence suggestive of COPD changes. Peribronchial cuffing bilateral hilar prominence is seen, mild prominence of the interstitial lung markings is visualized. Blunting of the right costophrenic angle is visualized. No evidence of pneumothorax or parenchymal contusion. A 1.8 cm nodule with density is visualized along the inferolateral aspect of the right upper lobe, this demonstrates slight prominence in comparison to the prior studies could represent fluid within the right minor fissure would recommend further evaluation with CT scan. MEDIASTINUM AND CARDIOVASCULAR STRUCTURES: Cardiac silhouette not enlarged. Central airways and mediastinal contour are unremarkable. BONES AND SOFT TISSUES: Degenerative bone changes. Right shoulder prosthesis demonstrates no change. RAD/Chest PA and Lateral IMPRESSION: Bronchovascular prominence with suggestion of small right pleural effusion. 1.8 cm nodular density visualized in the lateral aspect of the right upper to mid lung field demonstrates slight prominence in comparison to the prior study. Would recommend clinical correlation and if indicated CT scan for optimal evaluation . Electronically Signed: Donte Armstrong MD at 14:26 EDT ,
== END | disposition home or self-care (01) ==
LOC: MTRAD 11:31
PROVIDERS: PCP Family Medicine; Referring Provider Family Medicine; Visit Provider Family Medicine
DX: U07.1 COVID-19 (principal)
CPT/HCPCS: 71046

== ENCOUNTER → 2022-02-10 | Outpatient (CLI) | payer MEDICARE, OTHER, SELFPAY ==
[2022-02-10 12:37] LABS: Hematocrit 37.6 % (37-47); Hemoglobin 11.6 g/dL (12.0-15.0); Mean Corp Hgb Conc 30.9 g/dL (32-36); Mean Corpuscular Hgb 29.3 pg (27.0-32.0); Mean Corpuscular Volume 94.9 fL (81-99); Mean Platelet Vol. 10.1 fl (6.2-12.0); Platelet Count 335 K/mm3 (150-450); RBC Distribution Width CV 14.1 % (11.6-14.6); RBC Distribution Width SD 48.8 fl (35.1-43.9); Red Blood Count 3.96 M/mm3 (4.2-5.4); White Blood Count 7.3 K/mm3 (4.4-11.0)
[2022-02-10 13:04] LABS: Vitamin D,25 Hydroxy 54.5 ng/mL
[2022-02-10 13:12] LABS: ALB/GLOB Ratio 0.8 RATIO (0.9-2.4); AST(SGOT) 11 U/L (15-37); Alanine Aminotransfer ALT/SGPT 19 U/L (13-56); Albumin, Serum 3.4 g/dL (3.2-5.0); Alkaline Phosphatase 165 U/L (45-117); Anion Gap 9 (5-15); BUN 27 mg/dL (7-18); BUN/Creat Ratio 19.4 RATIO (10-20); Calcium,Total 9.2 mg/dL (8.5-10.1); Chloride 106 mmol/L (98-107); Cholesterol 177 mg/dL (200); Creatinine, Serum 1.39 mg/dL (0.55-1.02); EST Glomerular Filtration Rate 40 mL/min (>60); Est Glom Filt Rate - Afr Amer 49 mL/min (>60); Ferritin 40 ng/mL (8-252); Globulin 4.1 g/dL (2.2-4.2); Glucose 130 mg/dL (74-106); High Density Lipoprotein 51 mg/dL; Iron 35 ug/dL (50-170); Protein, Total 7.5 g/dL (6.4-8.2); Sodium Level 141 mmol/L (136-145); Triglycerides 153 mg/dL; Very Low Density Lipoprotein 31 mg/dL (5-40)
== END | disposition home or self-care (01) ==
LOC: MFPLAB 10:35
PROVIDERS: PCP Family Medicine; Referring Provider Family Medicine; Visit Provider Family Medicine
DX: E11.9 Type 2 diabetes mellitus without complications (principal); E55.9 Vitamin D deficiency, unspecified; D64.9 Anemia, unspecified
CPT/HCPCS: 36415; 80053; 80061; 82306; 82728; 83540; 84443; 85027

== ENCOUNTER → 2022-03-28 | Outpatient (CLI) | payer MEDICARE, OTHER, SELFPAY | END | disposition home or self-care (01) | LOC: SL 19:51 | PROVIDERS: PCP Family Medicine; Referring Provider Nurse Practitioner Acute Care; Visit Provider Nurse Practitioner Acute Care | DX: G47.33 Obstructive sleep apnea (adult) (pediatric) (principal) | CPT/HCPCS: 95811 ==

== ENCOUNTER 2022-05-08 13:12 | Emergency (ER) | payer MEDICARE, OTHER, SELFPAY ==
[2022-05-08 13:14] VITALS: BP 161/69; PULSE 89; RESP 20; TEMP 37.1; O2SAT 97; BMI 44.4
[2022-05-08 13:18] VITALS: O2SAT 98
--- NOTE | 2022-05-08 13:25 | EKG12_ITS ---
Test Reason : SOB Blood Pressure : / mmHG Vent. Rate : 078 BPM Atrial Rate : 078 BPM P-R Int : 128 ms QRS Dur : 074 ms QT Int : 372 ms P-R-T Axes : 000 -23 060 degrees QTc Int : 424 ms Sinus rhythm with Premature supraventricular complexes Otherwise normal ECG Confirmed by ROB CARMONA, SHAHRZAD ([id number]), online content editor MAXWELL MILLS ([id number]) on 05/10/2022 2:08:45 PM Referred By: LB Confirmed By:SHAHRZAD RIVAS MD
--- NOTE | 2022-05-08 13:27 | ED.VIS.DYS ---
HPI History of Present Illness Chief Complaint: Shortness of Breath Informant: patient Onset/Context/Timing Onset: Days Context: gradual Timing: Continuous Quality: Positive for Wheezing Current Severity: Moderate Maximum Severity: Moderate Worsened by: Coughing Relieved by: Albuterol Associated Symptoms cough, fever, chills and clear sputum Chest Pain: Positive for None Narrative Narrative: 67-year-old female extensive past medical history of anemia, A-fib, hypertension, COPD, DVT, diabetes on the blood thinner Eliquis. She is not on oxygen at home. She has been using aerosols at home and oxygen at night with CPAP for sleep apnea. Her daughter recently contracted influenza. Patient was not tested but her primary care physician's office started her on Tamiflu. She has been feeling worse the last several days. Productive cough of clear sputum. Shortness of breath. She has been using aerosols at home. Denies any significant chest pain. No hemoptysis. Has had subjective fever of 100.5 and chills. PE Risk Factors: Negative for Cancer, OCP + Smoking + > 35, Prior DVT or PE, Recent immobilization, Recent surgery or Recent travel Prior similar symptoms: Yes Recent Illness/Hospitalization: No PFSH PFSH Medical History Abnormal chest CT Acute bronchiolitis Acute respiratory failure ALEXYS (acute kidney injury) Allergic rhinitis Allergic rhinitis Anemia Anxiety Aspiration into airway Asthma Atrial fibrillation Atrial fibrillation with rapid ventricular response Atrial tachycardia Back pain Benign essential HTN Bronchiectasis Bronchiectasis with (acute) exacerbation Cardiology follow-up encounter Cavitary lesion of lung Cellulitis of right lower extremity Chronic diastolic congestive heart failure Chronic diastolic heart failure Chronic respiratory failure Coarse tremors COLD (chronic obstructive lung disease) Congestive heart failure (CHF) COPD with acute exacerbation Cough Diabetes Diabetes mellitus DVT (deep venous thrombosis) Easy bruising Essential hypertension Former smoker Gastroesophageal reflux disease Gastroesophageal reflux disease HCAP (healthcare-associated pneumonia) High cholesterol History of COPD History of diabetes mellitus History of DVT (deep vein thrombosis) History of echocardiogram History of edema 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 History of renal disease History of stress test Hx pulmonary embolism Hyperlipidemia Hyperlipidemia Hypertension Hypertension Hypothyroidism Hypothyroidism Hypoxemia Injury of back Insomnia Iron deficiency anemia Kidney disease Lung nodule Migraine headache Morbid obesity MRSA pneumonia Obesity GAGAN (obstructive sleep apnea) Pain of left hip Palpitations Paroxysmal atrial fibrillation Paroxysmal atrial tachycardia Pneumonia Pneumonia due to Pseudomonas Precordial chest pain Pulmonary embolism PVD (peripheral vascular disease) Right foot pain Septic shock Severe sepsis Shortness of breath Shortness of breath on exertion Steroid myopathy Tachycardia Thrush, oral Umbilical hernia Venous thromboembolism (VTE) Vitamin D deficiency Walker as ambulation aid Weakness Wears glasses Home Medications levothyroxine 25 mcg tablet 25 mcg PO DAILY@0600 thyroid 01/04/20 [History Last Taken 09/16/21 08:00] famotidine 40 mg tablet 40 mg PO QHS reflux 04/02/20 [History Last Taken 07/03/21 23:04] cholecalciferol (vitamin D3) 50 mcg (2,000 unit) capsule 50 mcg PO DAILY SUPPLEMENT 09/19/20 [History Last Taken 07/04/21 05:54] furosemide 40 mg tablet (Lasix) 40 mg PO BID water pill 09/19/20 [History Last Taken 07/04/21 05:52] esomeprazole magnesium 40 mg capsule,delayed release (Nexium) 40 mg PO DAILY reflux 10/13/20 [History Last Taken 09/16/21 08:00] potassium chloride 20 mEq tablet,extended release(part/cryst) 20 meq PO BID supplement 10/13/20 [History Last Taken 07/03/21 07:56] ferrous sulfate 325 mg (65 mg iron) tablet 325 mg PO DAILY anemia 06/26/21 [History Last Taken 07/03/21 11:43] guaifenesin 1,200 mg tablet, extended release 12 hr (Mucus Relief ER) 1,200 mg PO BID congestion 06/26/21 [History Last Taken 07/04/21 05:51] acetaminophen 500 mg tablet 1,000 mg PO Q8 PRN pain of temp > 101 #0 tabs 07/14/21 [Rx Last Taken 07/04/21 05:51] acidophilus 25 million cell-pectin, citrus 100 mg tablet 1 tab PO BID #0 tabs 07/14/21 [Rx Last Taken Unknown] apixaban 5 mg tablet (Eliquis) 5 mg PO BID anticoagulant #180 tabs 02/25/22 [Rx Last Taken Unknown] atorvastatin 10 mg tablet See Rx Instructions .Route .COMPLEX #90 tabs 02/25/22 [Rx Last Taken Unknown] diltiazem HCl 180 mg capsule,extended release 24 hr (Cardizem CD) 180 mg PO DAILY heart #90 caps 02/25/22 [Rx Last Taken Unknown] flecainide 50 mg tablet 50 mg PO BID HEART #180 tabs 02/25/22 [Rx Last Taken Unknown] albuterol sulfate 2.5 mg/3 mL (0.083 %) solution for nebulization 2.5 mg (3 mL) inhalation Q4H PRN breathing #180 vials 03/01/22 [Rx Last Taken Unknown] fluticasone propionate 230 mcg-salmeterol 21 mcg/actuation HFA inhaler (Advair HFA) 2 puff inhalation BID lungs #3 ea 03/01/22 [Rx Last Taken Unknown] ipratropium bromide 21 mcg (0.03 %) nasal spray 2 spray intranasal BID allergies #3 ea 03/01/22 [Rx Last Taken Unknown] montelukast 10 mg tablet (Singulair) 10 mg PO QHS asthma #90 tabs 03/01/22 [Rx Last Taken Unknown] albuterol sulfate 90 mcg/actuation aerosol inhaler (Ventolin HFA) 2 puff inhalation Q4H PRN shortness of breath or wheezing #3 ea 03/11/22 [Rx Last Taken Unknown] Allergy/AdvReac Type Severity Reaction Status Date / Time adhesive Allergy SKIN Verified 05/08/22 13:18 TEARS. PAPER TAPE OK azithromycin [From Zithromax] Allergy Rash Verified 05/08/22 13:18 cefuroxime sodium Allergy Rash Verified 05/08/22 13:18 [From Zinacef] clindamycin Allergy Hives Verified 05/08/22 13:18 nitrofurantoin Allergy Rash Verified 05/08/22 13:18 macrocrystalline [From Macrodantin] Sulfa (Sulfonamide Allergy Rash Verified 05/08/22 13:18 Antibiotics) atenolol AdvReac Severe Peripheal Verified 05/08/22 13:18 edema & cough metoprolol [From Toprol XL] AdvReac Severe Peripheral Verified 05/08/22 13:18 edema & cough duloxetine [From Cymbalta] AdvReac Intermediate made me Verified 05/08/22 13:18 feel really sick Corticosteroids AdvReac Other Verified 05/08/22 13:18 (Glucocorticoids) oxycodone HCl [From Percocet] AdvReac Vomiting Verified 05/08/22 13:18 Family History Mother Hypertension Diabetes Heart disease Pulmonary embolism Father Perforated ulcer Respiratory failure Sister Asthma Hypertension Surgical History H/O section H/O foot surgery H/O hernia repair H/O shoulder surgery H/O: hysterectomy History of appendectomy History of cardioversion (~12/2016) History of left heart catheterization History of total left hip replacement Hx of vein stripping S/P hip replacement S/P hysterectomy Status post hip replacement Status post total hip replacement, left Social History household members: none Smoking Status: Former smoker quit date: 02/14/75 pack-years: 3 second hand exposure: No alcohol intake: never substance use type: does not use caffeine: No what type of physical activity do you participate in: none ROS ROS ED ROS Narrative Cough. Shortness of breath. Fever and chills. Wheezing. Review of Systems ROS Unobtainable: Denies due to encephalopathy Constitutional Constitutional ED: Reports chills and fever(s); Denies sweats Eyes Eyes: Denies blurry vision ENT ENT ED: Denies ear pain Cardiovascular Cardiovascular: Denies chest pain Respiratory/Chest Respiratory/Chest: Reports cough, dyspnea and sputum Gastrointestinal Gastrointestinal: Denies abdominal pain, constipation, diarrhea, melena, nausea or vomiting Genitourinary Genitourinary ED: Denies dysuria or hematuria Musculoskeletal Musculoskeletal: Denies arthralgias Integumentary Denies abscess Neurologic Neurologic: Denies headache(s) Psychiatric Psychiatric: Denies anxiety or depression Endocrine Endocrinology: Denies cold intolerance Hematologic/Lymphatic Hematologic/Lymphatic: Denies easy bleeding Allergic/Immunologic Allergic/Immunologic ED: Denies mouth swelling EXAM Physical Exam Narrative Exam Narrative: 67-year-old female vital signs are stable. Pulse ox 97% on room air no hypoxia. H EENT exam unremarkable. Moist with members. Neck nontender. No JVD. No lymphadenopathy. Lungs expiratory wheezes. Coarse breath sounds bilaterally. Heart regular rhythm rate about 90 no murmur. Abdomen soft nontender. Moving all 4 extremities. She is trace edema both lower extremities. That is her baseline. Calves are nontender. Neurologically she is awake and alert. Const Vital Signs: 05/08/22 13:14 05/08/22 13:18 05/08/22 13:42 Temperature 98.7 F Temperature Source Temporal Pulse Rate 89 83 Respiratory Rate 20 H 13 Respiratory Effort Short of Breath Labored Respiratory Depth Deep Respiratory Pattern Tachypnea Normal Blood Pressure 161/69 H Blood Pressure Mean 99 Pulse Ox 97 Oxygen Delivery Method Room Air Room Air Positive well nourished and well developed; Negative for cachectic, contractures or unkempt General Appearance ED: well developed and NAD; Negative for unkempt, cachectic, contractures or pallor Nutritional Appearance: Negative for cachectic HEENT Reports moist mucous membranes; Denies dry mucous membranes atraumatic; Negative for trauma or tenderness Mouth ED: No dry mucous membranes Mouth: No dry mucous membranes Eyes PERRL and EOMs intact bilaterally General Eye ED: Negative for pale conjunctiva or scleral icterus Neck no lymphadenopathy, supple, no meningeal signs and no JVD General: Negative for tenderness Lymph Lymphatic: Negative for other Chest Wall Chest: Negative for other Resp normal respiratory effort and No clear to auscultation bilaterally Resp Narrative: Coarse breath sounds bilaterally with expiratory wheezes. Effort and Inspection: Negative for pain with movement Auscultation: wheezes; Negative for rales or rhonchi Cardio regular rate, regular rhythm, S1 normal heart sound, S2 normal heart sound and no murmurs Rate: Negative for bradycardia or tachycardic Rhythm: Negative for abnormal rhythm GI non-tender, non-distended and no masses Inspection: Negative for other Auscultation: normoactive bowel sounds Palpation: soft; Negative for tender or guarding Back/Spine no CVA tenderness and normal to inspection General Back: Negative for CVA tenderness or tenderness Extremity Negative for normal to inspection Extremity Narrative: Trace bilaterally. Chronic. General Extremety ED: Yes edema; Negative for tenderness General Extremity: edema Neuro oriented x3 and CN's II-XII intact bilaterally Sensorium / Orientation: alert, oriented to person, oriented to place and oriented to time; Negative for orientation impaired, confused, lethargic or stuporous Speech: speech normal Motor Exam: strength 5/5 throughout Psych mental status grossly normal Appearance: Negative for unkempt Attitude: No agitated Mood & Affect: Negative for depressed Thought Process: normal thought process Skin no wounds and skin turgor normal General Skin Exam: Negative for jaundice or pallor Lesions: no lesions Rashes: no rashes Trauma: Negative for abrasion or laceration MDM MDM MDM Narrative Medical decision making narrative: 59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 Cardiac work-up with a chest x-ray also rapid COVID and influenza screen. She will be treated with DuoNeb and albuterol aerosols and Solu-Medrol IV. Repeat exam at 2:35 PM patient is doing somewhat better after aerosols and steroids. She and I went over all of her test results. They are basically her baseline chronic anemia and mild renal insufficiency. She is comfortable being discharged home. She will be written for more prednisone 40 mg a day for 7 days starting tomorrow. She already was given dose here through the IV. Follow-up with her primary care physician Dr. Bismark Faust and return if she is feeling worse. Symptomatic treatment for influenza B. History & Record Review Discussion w/independent historian: Patient Lab Data Attestation: I reviewed the patient's lab results. Lab results narrative: CBC White count 8. H&H 11.9 and 38 which is her baseline chronic anemia. Platelets 325. Electrolytes show a gap of 8. BUN 27 creatinine 1.3 which is her baseline renal insufficiency. Glucose 198 she is diabetic. Troponins negative. Chest x-ray negative. Chronic changes. Influenza B positive. COVID-negative. Labs: Laboratory Results - last 24 hr 05/08/22 05/08/22 13:50 13:50 WBC 8.0 RBC 3.97 L Hgb 11.9 L Hct 38.4 MCV 96.7 MCH 30.0 MCHC 31.0 L RDW Std Deviation 49.8 H RDW Coeff of Lanre 14.1 Plt Count 325 MPV 9.9 Immature Gran % (Auto) 0.600 Neut % (Auto) 82.9 H Lymph % (Auto) 9.9 L Swain % (Auto) 6.2 Eos % (Auto) 0.1 Baso % (Auto) 0.3 Absolute Neuts (auto) 6.6 Absolute Lymphs (auto) 0.79 L Nucleated RBC % 0 Sodium 140 Potassium 3.8 Chloride 108 H Carbon Dioxide 24.0 Anion Gap 8 BUN 27 H Creatinine 1.33 H Estim Creat Clear Calc 30.55 Est GFR (MDRD) Af Amer 51 L Est GFR (MDRD) Non-Af 42 L BUN/Creatinine Ratio 20.3 H Glucose 198 H Calcium 9.2 Troponin I High Sens 7 Radiography Chest X-Ray - ED: 1 View and Read by ED Physician Diagnostic Testing: Clinical Impression(s) from Imaging Studies Chest X-Ray 05/08/22 14:00 IMPRESSION: COPD. Mild bibasilar fibrosis. Mild cardiomegaly. Right shoulder arthroplasty. Electronically Signed: Broderick Mancini MD, LARA at 14:13 EDT , Chest x-ray, portable, single view shows chronic changes. No pneumonia. Fibrosis of the lungs. Prior right shoulder replacement. Interpreted both by myself and the radiologist. Rhythm Strip Rhythm Strip: Sinus Rhythm Rate: 78 Ectopy: None EKG Initial EKG: Attestation: I personally reviewed and interpreted this EKG as follows: Interpretation: Sinus Rhythm and No Acute Injury Pattern Comments: Sinus rhythm rate 78 no acute signs of [place] or ischemia. Discharge Plan Triage Chief Complaint: Shortness of Breath ED Provider: Thierno Wilson Dx/Rx/DC Orders Clinical Impression: Influenza, COPD exacerbation, History of diabetes mellitus, Chronic anticoagulation, History of atrial fibrillation Instructions: ED COPD Flare, ED Influenza (Adult) Prescriptions: No Action famotidine 40 mg tablet 40 mg PO QHS esomeprazole magnesium [Nexium] 40 mg capsule,delayed release(DR/EC) 40 mg PO DAILY potassium chloride 20 mEq tablet,ER particles/crystals 20 meq PO BID Advair HFA 230-21 mcg/actuation HFA aerosol inhaler 2 puff INHALATION BID Qty: 3 3RF albuterol sulfate 2.5 mg /3 mL (0.083 %) solution for nebulization 2.5 mg INHALATION Q4H PRN Qty: 180 6RF Rx Instructions: Use q4 hours and PRN for wheezing ipratropium bromide 21 mcg (0.03 %) spray,non-aerosol 2 spray intranasal BID Qty: 3 3RF Rx Instructions: administer into each nostril montelukast [Singulair] 10 mg tablet 10 mg PO QHS Qty: 90 3RF levothyroxine 25 mcg tablet 25 mcg PO DAILY@0600 Label Comments: thyroid furosemide [Lasix] 40 mg tablet 40 mg PO BID cholecalciferol (vitamin D3) 50 mcg (2,000 unit) Capsule 50 mcg PO DAILY ferrous sulfate 325 MG tablet 325 mg PO DAILY Rx Instructions: Take 1 hour before doxycycline or in empty stomach while patient is on doxycycline to avoid drug drug interaction. Mucus Relief ER 1,200 mg tablet extended release 12hr 1,200 mg PO BID acidophilus-pectin, citrus 25 million cell -100 mg Tablet 1 tab PO BID Qty: 0 0RF acetaminophen 500 mg tablet 1,000 mg PO Q8 PRN (Reason: pain of temp > 101) Qty: 0 0RF Eliquis 5 mg tablet 5 mg PO BID Qty: 180 3RF atorvastatin 10 mg tablet See Rx Instructions .ROUTE .COMPLEX Qty: 90 3RF Dose Instruction: TAKE 1 TABLET AT BEDTIME Rx Instructions: TAKE 1 TABLET AT BEDTIME diltiazem HCl [Cardizem CD] 180 mg capsule,extended release 24hr 180 mg PO DAILY Qty: 90 3RF Rx Instructions: Hold for heart less than 60 or systolic blood pressure less than 100 mmHg. flecainide 50 mg tablet 50 mg PO BID Qty: 180 3RF albuterol sulfate [Ventolin HFA] 90 mcg/actuation HFA aerosol inhaler 2 puff inhalation Q4H PRN (Reason: shortness of breath or wheezing) Qty: 3 3RF Primary Care Provider: Ervin Donnelly Referrals: Ervin Donnelly MD [Primary Care Provider] - 3-5 Days Activity Restrictions/Additional Instructions: Plenty of fluids and rest. Finish your Tamiflu. Continue the prednisone 40 mg a day for 7 more days starting tomorrow you received a dose of Solu-Medrol today through the IV. Follow-up with your doctor to ensure you are improving or return if feeling worse. Use your inhaler and nebulizer at home as needed. Disposition Disposition: Home, Self Care
[2022-05-08] MEDS: Ipratropium/Albuterol Sulfate 3 ML AMPUL.NEB INHALATION (13:33)
[2022-05-08] MEDS: Albuterol 2.5 MG/3 ML VIAL.NEB. INHALATION (13:33)
[2022-05-08 13:42] VITALS: PULSE 83; RESP 13
[2022-05-08] MEDS: MethylPREDNISolone 125 MG/2 ML Vial IV (13:53)
[2022-05-08 13:57] LABS: Absolute Lymphocyte Count 0.79 X10^3/uL (0.83-4.51); Absolute Neutrophil Count 6.6 X10^3/uL (2.0-7.7); Basophil# 0.02 X10^3/uL; Basophil% 0.3 % (0-1); Eosinophil# 0.01 X10^3/uL; Eosinophils% 0.1 % (0-5); Hematocrit 38.4 % (37-47); Hemoglobin 11.9 g/dL (12.0-15.0); Lymphocyte # 0.79 X10^3/ul (0.83-4.51); Lymphocyte % 9.9 % (19-41); Mean Corpuscular Volume 96.7 fL (81-99); Mean Platelet Vol. 9.9 fl (6.2-12.0); Monocyte# 0.49 X10^3/uL; Monocyte% 6.2 % (0-10); NRBC Flagged by Analyzer 0 % (0-5); Neutrophil % 82.9 % (47-70); Platelet Count 325 K/mm3 (150-450); RBC Distribution Width CV 14.1 % (11.6-14.6); RBC Distribution Width SD 49.8 fl (35.1-43.9); Red Blood Count 3.97 M/mm3 (4.2-5.4)
--- NOTE | 2022-05-08 14:00 | RAD_ITS ---
INDICATION: chest pain EXAMINATION/TECHNIQUE: X-RAY - XR Chest 1 View COMPARISON: 11/03/2021. FINDINGS: LINES/DEVICES: Status post right shoulder arthroplasty. LUNGS: COPD is again noted. Peribronchial cuffing has resolved. There is mild bibasilar fibrosis. MEDIASTINUM AND CARDIOVASCULAR STRUCTURES: Cardiomegaly progressive. BONES AND SOFT TISSUES: Unremarkable. RAD/Chest 1 View (Portable) IMPRESSION: COPD. Mild bibasilar fibrosis. Mild cardiomegaly. Right shoulder arthroplasty. Electronically Signed: Broderick Mancini MD, LARA at 14:13 EDT ,
[2022-05-08 14:15] LABS: Anion Gap 8 (5-15); BUN 27 mg/dL (7-18); BUN/Creat Ratio 20.3 RATIO (10-20); Calcium,Total 9.2 mg/dL (8.5-10.1); Chloride 108 mmol/L (98-107); Creatinine, Serum 1.33 mg/dL (0.55-1.02); EST Glomerular Filtration Rate 42 mL/min (>60); Est Glom Filt Rate - Afr Amer 51 mL/min (>60); Estimated Creatinine Clearance 30.55 ml/min; Glucose 198 mg/dL (74-106); Potassium 3.8 mmol/L (3.5-5.1); Sodium Level 140 mmol/L (136-145); Troponin-I HS 7 pg/mL (3.0-54.0)
[2022-05-08 14:42] VITALS: O2SAT 98
[2022-05-08 14:48] VITALS: BP 135/52; PULSE 82; RESP 20
== END 2022-05-08 15:13 | disposition home or self-care (01) ==
PROVIDERS: Emergency Provider Emergency Medicine; PCP Family Medicine; Visit Provider Emergency Medicine
DX: J10.1 Influenza due to other identified influenza virus with other respiratory manifestations (principal); J44.1 Chronic obstructive pulmonary disease with (acute) exacerbation; J44.0 Chronic obstructive pulmonary disease with (acute) lower respiratory infection; I11.0 Hypertensive heart disease with heart failure; I50.32 Chronic diastolic (congestive) heart failure; E11.22 Type 2 diabetes mellitus with diabetic chronic kidney disease; I48.91 Unspecified atrial fibrillation; G47.30 Sleep apnea, unspecified; Z87.891 Personal history of nicotine dependence; E78.00 Pure hypercholesterolemia, unspecified; D63.1 Anemia in chronic kidney disease; N28.9 Disorder of kidney and ureter, unspecified; Z79.01 Long term (current) use of anticoagulants
CPT/HCPCS: 71045; 80048; 84484; 85025; 87428; 93005; 94640; 96374; 99284; A4216

== ENCOUNTER → 2022-06-15 | Outpatient (CLI) | payer MEDICARE, OTHER, SELFPAY ==
--- NOTE | 2022-06-15 10:50 | RAD_ITS ---
STUDY: X-RAY CHEST REASON FOR EXAM: Female, 67 years old. Cough and congestion. Question pneumonia. TECHNIQUE: PA and lateral views of the chest. COMPARISON: May 08, 2022 and June 28, 2021. FINDINGS: The lungs are well-expanded. There is chronic interstitial coarsening. Question oblong density in the lateral right midlung measuring 1.7 x 1.0 cm. This is a long-standing finding. There is blunting of the right costophrenic angle suggesting small pleural effusion. Normal size heart. Normal mediastinum and tami. Normal visualized pulmonary arteries. There is atherosclerotic calcification of the aortic arch with tortuosity. There is demineralization of the osseous structures. There are mild degenerative changes of the thoracic spine. Right humeral head replacement. There is no demonstrated abnormality of the visualized soft tissue structures of the upper abdomen. RAD/Chest PA and Lateral IMPRESSION: 1. No acute cardiopulmonary disease or major change in findings when compared to June 28, 2021 Electronically Signed: Dave Dietz DO at 18:14 EDT ,
== END | disposition home or self-care (01) ==
LOC: MTRAD 10:50
PROVIDERS: PCP Family Medicine; Referring Provider Nurse Practitioner Family; Visit Provider Nurse Practitioner Family
DX: J18.9 Pneumonia, unspecified organism (principal)
CPT/HCPCS: 71046

== ENCOUNTER → 2022-07-15 | Outpatient (CLI) | payer MEDICARE, OTHER, SELFPAY ==
--- NOTE | 2022-07-15 17:58 | MRI_ITS ---
EXAM: MR LEFT LOWER EXTREMITY WITHOUT INTRAVENOUS CONTRAST, ANKLE CLINICAL INDICATION: LT ANKLE,IDIOPATHIC ASEPTIC NEUCROSIS TECHNIQUE: Multiplanar and multisequence MR images of the left ankle without intravenous contrast. COMPARISON: No relevant prior studies available. FINDINGS: LIGAMENTS: ANTERIOR TALOFIBULAR: Unremarkable. Intact. POSTERIOR TALOFIBULAR: Unremarkable. Intact. ANTERIOR TIBIOFIBULAR: Unremarkable. Intact. POSTERIOR TIBIOFIBULAR: Unremarkable. Intact. CALCANEOFIBULAR: Unremarkable. Intact. DELTOID: Unremarkable. Intact. SPRING: Unremarkable. Intact. LISFRANC: Unremarkable. Intact. TENDONS: ACHILLES: Unremarkable. Intact. FLEXOR: Unremarkable. Intact. EXTENSOR: Unremarkable. Intact. PERONEAL: Unremarkable. Intact. TIBIALIS ANTERIOR: Unremarkable. Intact. TIBIALIS POSTERIOR: Unremarkable. Intact. MUSCLES: Muscle atrophy involving the visualized distal lower extremity, worse involving the deep part of the posterior compartment. FLUID: Unremarkable. No joint effusion. SINUS TARSI: Unremarkable. Normal fat in the sinus tarsi. TARSAL TUNNEL: Unremarkable. PLANTAR FASCIA: Unremarkable. Intact. CARTILAGE: Unremarkable. No osteochondral lesion. Articular cartilage intact. BONES/JOINTS: Extensive osteonecrosis involving the visualized forefoot, midfoot, and hindfoot as well as the distal tibia. Talar dome intact. No fracture or marrow edema. OTHER SOFT TISSUES: Diffuse subcutaneous edema. No masses or fluid collections. MRI/Lower Ext Joint Only (Routine) IMPRESSION: Extensive osteonecrosis involving the visualized forefoot, midfoot, and hindfoot as well as the distal tibia. Extensive subcutaneous edema with no organized fluid collections. Electronically Signed: Pablo Danielle MD at 22:00 EDT ,
== END | disposition home or self-care (01) ==
LOC: MRI 17:41
PROVIDERS: PCP Family Medicine; Referring Provider Podiatrist; Visit Provider Podiatrist
DX: M87.072 Idiopathic aseptic necrosis of left ankle (principal)
CPT/HCPCS: 73721

== ENCOUNTER → 2022-09-07 | Outpatient (CLI) | payer MEDICARE, OTHER, SELFPAY ==
[2022-09-07 15:33] LABS: Hematocrit 36.4 % (37-47); Hemoglobin 11.2 g/dL (12.0-15.0); Mean Corp Hgb Conc 30.8 g/dL (32-36); Mean Corpuscular Volume 97.6 fL (81-99); Mean Platelet Vol. 10.3 fl (6.2-12.0); Platelet Count 379 K/mm3 (150-450); RBC Distribution Width CV 13.2 % (11.6-14.6); Red Blood Count 3.73 M/mm3 (4.2-5.4); White Blood Count 6.9 K/mm3 (4.4-11.0)
[2022-09-07 15:49] LABS: Anion Gap 9 (5-15); BUN 29 mg/dL (7-18); Calcium,Total 9.1 mg/dL (8.5-10.1); Chloride 111 mmol/L (98-107); Creatinine, Serum 1.61 mg/dL (0.55-1.02); EST Glomerular Filtration Rate 34 mL/min (>60); Est Glom Filt Rate - Afr Amer 41 mL/min (>60); Glucose 118 mg/dL (74-106); Potassium 3.9 mmol/L (3.5-5.1); Sodium Level 143 mmol/L (136-145)
== END | disposition home or self-care (01) ==
LOC: MFPLAB 11:21
PROVIDERS: PCP Family Medicine; Visit Provider Family Medicine
DX: E11.22 Type 2 diabetes mellitus with diabetic chronic kidney disease (principal)
CPT/HCPCS: 36415; 80048; 85027

== ENCOUNTER → 2022-09-24 | Outpatient (CLI) | payer MEDICARE, OTHER, SELFPAY | END | disposition home or self-care (01) | LOC: LABSPEC 10:01 | PROVIDERS: PCP Family Medicine; Referring Provider Family Medicine; Visit Provider Family Medicine | DX: J02.9 Acute pharyngitis, unspecified (principal) | CPT/HCPCS: 87070; 87077; 87186 ==

== ENCOUNTER → 2022-10-21 | Outpatient (CLI) | payer MEDICARE, OTHER, SELFPAY ==
[2022-10-21 18:02] LABS: Anion Gap 8 (5-15); BUN 31 mg/dL (7-18); BUN/Creat Ratio 20.8 RATIO (10-20); Calcium,Total 9.3 mg/dL (8.5-10.1); Chloride 107 mmol/L (98-107); Creatinine, Serum 1.49 mg/dL (0.55-1.02); EST Glomerular Filtration Rate 37 mL/min (>60); Est Glom Filt Rate - Afr Amer 45 mL/min (>60); Glucose 130 mg/dL (74-106); Sodium Level 139 mmol/L (136-145)
== END | disposition home or self-care (01) ==
LOC: MFPLAB 16:01
PROVIDERS: PCP Family Medicine; Visit Provider Family Medicine
DX: N28.9 Disorder of kidney and ureter, unspecified (principal)
CPT/HCPCS: 36415; 80048

== ENCOUNTER → 2022-11-12 | Outpatient (CLI) | payer MEDICARE, OTHER, SELFPAY ==
--- NOTE | 2022-11-12 09:53 | RAD_ITS ---
STUDY: X-RAY - LUMBAR SPINE REASON FOR EXAM: Female, 67 years old. BACK PAIN TECHNIQUE: 3 view(s) of the lumbar spine were obtained. COMPARISON: July 03, 2021 FINDINGS: Normal lumbar lordosis. There is severe levo scoliosis. There is a normal alignment of the vertebrae. There is chronic wedging of superior endplate of L2. No definitive evidence for acute fracture. . Multilevel disc space narrowing and endplate spurring. Calcification of the aorta without evidence for aneurysm. There has been slight progression of compression of L2 since previous exam. In addition, there is multilevel spinal stenosis which appears to be exaggerated by facet arthropathy If concern for recent fracture, CT or MRI recommended for correlation RAD/Lumbar Spine 2 or 3 Views IMPRESSION: Severe scoliosis and degenerative change.. Probable chronic compression of L2 which has progressed since previous study without definitive evidence for acute fracture. CT or MRI would be useful for further evaluation Electronically Signed: Dakota Torres MD at 17:59 EDT ,
== END | disposition home or self-care (01) ==
LOC: MTRAD 09:50
PROVIDERS: PCP Family Medicine; Referring Provider Anesthesiology Pain Medicine; Visit Provider Anesthesiology Pain Medicine
DX: M51.26 Other intervertebral disc displacement, lumbar region (principal); M51.36 Other intervertebral disc degeneration, lumbar region
CPT/HCPCS: 72100

== ENCOUNTER → 2022-11-16 | Outpatient (CLI) | payer MEDICARE, OTHER, SELFPAY ==
[2022-11-16 12:02] LABS: AST(SGOT) 11 U/L (15-37); Alanine Aminotransfer ALT/SGPT 18 U/L (13-56); Albumin, Serum 3.2 g/dL (3.2-5.0); Alkaline Phosphatase 143 U/L (45-117); Bilirubin, Direct 0.12 mg/dL (0.00-0.30); Cholesterol 150 mg/dL (200); Globulin 4.6 g/dL (2.2-4.2); High Density Lipoprotein 45 mg/dL; Protein, Total 7.8 g/dL (6.4-8.2); Triglycerides 182 mg/dL; Very Low Density Lipoprotein 36 mg/dL (5-40)
== END | disposition home or self-care (01) ==
LOC: LAB 10:24
PROVIDERS: PCP Family Medicine; Referring Provider Nurse Practitioner Gerontology; Visit Provider Nurse Practitioner Gerontology
DX: E78.5 Hyperlipidemia, unspecified (principal)
CPT/HCPCS: 36415; 80061; 80076

== ENCOUNTER → 2023-03-09 | Outpatient (CLI) | payer MEDICARE, OTHER, SELFPAY ==
[2023-03-09 12:58] LABS: Vitamin D,25 Hydroxy 55.7 ng/mL
[2023-03-09 13:10] LABS: Anion Gap 6 (5-15); BNP,B-Type NATRIURETIC PEPTIDE 56.6 pg/mL (0-100); BUN 26 mg/dL (7-18); BUN/Creat Ratio 17.4 RATIO (10-20); Calcium,Total 9.4 mg/dL (8.5-10.1); Chloride 109 mmol/L (98-107); Creatinine, Serum 1.49 mg/dL (0.55-1.02); EST Glomerular Filtration Rate 37 mL/min (>60); Est Glom Filt Rate - Afr Amer 45 mL/min (>60); Glucose 115 mg/dL (74-106); Potassium 3.8 mmol/L (3.5-5.1); Sodium Level 140 mmol/L (136-145); Thyroid Stim Hormone (TSH) 2.09 uIU/mL (0.358-3.74)
== END | disposition home or self-care (01) ==
LOC: MFPLAB 11:08
PROVIDERS: PCP Family Medicine; Visit Provider Family Medicine
DX: E11.40 Type 2 diabetes mellitus with diabetic neuropathy, unspecified (principal); I50.32 Chronic diastolic (congestive) heart failure; E55.9 Vitamin D deficiency, unspecified; E03.9 Hypothyroidism, unspecified
CPT/HCPCS: 36415; 80048; 82306; 83880; 84443

== ENCOUNTER → 2023-03-30 | Outpatient (CLI) | payer MEDICARE, OTHER, SELFPAY ==
--- NOTE | 2023-03-30 13:54 | ART_ITS ---
Reason For Study: PVD Procedure A bilateral lower extremity continuous wave Doppler with analog waveform analysis,segmental pressures,and ankle brachial indexes without exercise. Left Segmental Pressures Left brachial= 152mmHg. Left posterior tibial artery = 175mmHg. Left dorsalis pedis artery = 164mmHg. Left digit = 115 mmHg. The left posterior tibial artery waveforms are triphasic. The left dorsalis pedis waveforms are triphasic. Right Segmental Pressures Right brachial= 153mmHg. Right posterior tibial artery = 157mmHg. Right dorsalis pedis artery = 170mmHg. Right digit = 108 mmHg. The right posterior tibial artery waveforms are triphasic. The right dorsalis pedis waveforms are triphasic. Indices The right ankle brachial index by the posterior tibial artery is 1.03. The right ankle brachial index by the dorsalis pedis is 1.11. The right digital-brachial index is 0.71. The left ankle brachial index by the posterior tibial artery is 1.14. The left ankle brachial index by the dorsalis pedis is 1.07. The left digital-brachial index is 0.75. VL/Lower Ext Art Exam w/o Exercis Interpretation Summary Right AUBRIE 1.11, normal. Doppler/PVR waveforms of the right leg normal at rest. TBI diminished, pedal/digit disease vs spasm Left AUBRIE 1.14, normal. TBI and Doppler/PVR waveforms of the left leg normal at rest. Ordering Physician: Darrian Cavanaugh Referring Physician: Terry Donnelly MD Performed By: Vinh Danielle RVT
== END | disposition home or self-care (01) ==
LOC: CVS 13:49
PROVIDERS: PCP Family Medicine; Referring Provider Podiatrist; Visit Provider Podiatrist
DX: I73.9 Peripheral vascular disease, unspecified (principal); J47.1 Bronchiectasis with (acute) exacerbation
CPT/HCPCS: 87070; 87077; 87186; 87205; 93923

== ENCOUNTER 2023-05-13 11:15 | Outpatient (RCR) | payer MEDICARE, OTHER, SELFPAY ==
[2023-05-10 10:07] VITALS: BP 190/75; PULSE 85; RESP 18; TEMP 36.3; BMI 102.8
--- NOTE | 2023-05-10 10:32 | PCM.WC.HP ---
History of Present Illness Date of Service: 05/10/23 Chief Complaint: Follow-up surgical wound dehiscence History of Wound: Patient has had this wound for several weeks and has noticed worsening with increased serous drainage. Patient denies any fever chills nausea vomiting chest pain calf pain shortness of breath.68-year-old female presents today with a venous leg ulceration to her right leg. Patient has no other complaints. [facility] Medical History Abnormal chest CT Acute bronchiolitis Acute respiratory failure ALEXYS (acute kidney injury) Allergic rhinitis Allergic rhinitis Anemia Anxiety Aspiration into airway Asthma Atrial fibrillation Atrial fibrillation with rapid ventricular response Atrial tachycardia Back pain Benign essential HTN Bronchiectasis Bronchiectasis with (acute) exacerbation Cardiology follow-up encounter Cavitary lesion of lung Cellulitis of right lower extremity Chronic diastolic congestive heart failure Chronic diastolic heart failure Chronic respiratory failure Coarse tremors COLD (chronic obstructive lung disease) Congestive heart failure (CHF) COPD with acute exacerbation Cough Diabetes Diabetes mellitus DVT (deep venous thrombosis) Easy bruising Essential hypertension Former smoker Gastroesophageal reflux disease Gastroesophageal reflux disease HCAP (healthcare-associated pneumonia) High cholesterol History of COPD History of diabetes mellitus History of DVT (deep vein thrombosis) History of echocardiogram History of edema 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 History of renal disease History of stress test Hx pulmonary embolism Hyperlipidemia Hyperlipidemia Hypertension Hypertension Hypothyroidism Hypothyroidism Hypoxemia Injury of back Insomnia Iron deficiency anemia Kidney disease Lung nodule Migraine headache Morbid obesity MRSA pneumonia Obesity GAGAN (obstructive sleep apnea) Pain of left hip Palpitations Paroxysmal atrial fibrillation Paroxysmal atrial tachycardia Pneumonia Pneumonia due to Pseudomonas Precordial chest pain Pulmonary embolism PVD (peripheral vascular disease) Right foot pain Septic shock Severe sepsis Shortness of breath Shortness of breath on exertion Steroid myopathy Tachycardia Thrush, oral Umbilical hernia Venous thromboembolism (VTE) Vitamin D deficiency Walker as ambulation aid Weakness Wears glasses Home Medications levothyroxine 25 mcg tablet 25 mcg PO DAILY@0600 thyroid 01/04/20 [History Last Taken 09/16/21 08:00] famotidine 40 mg tablet 40 mg PO QHS reflux 04/02/20 [History Last Taken 07/03/21 23:04] cholecalciferol (vitamin D3) 50 mcg (2,000 unit) capsule 50 mcg PO DAILY SUPPLEMENT 09/19/20 [History Last Taken 07/04/21 05:54] furosemide 40 mg tablet (Lasix) 40 mg PO BID water pill 09/19/20 [History Last Taken 07/04/21 05:52] esomeprazole magnesium 40 mg capsule,delayed release (Nexium) 40 mg PO DAILY reflux 10/13/20 [History Last Taken 09/16/21 08:00] potassium chloride 20 mEq tablet,extended release(part/cryst) 20 meq PO BID supplement 10/13/20 [History Last Taken 07/03/21 07:56] ferrous sulfate 325 mg (65 mg iron) tablet 325 mg PO DAILY anemia 06/26/21 [History Last Taken 07/03/21 11:43] acetaminophen 500 mg tablet 1,000 mg (2 x 500 mg) PO Q8 PRN pain of temp > 101 #0 tabs 07/14/21 [Rx Last Taken 07/04/21 05:51] albuterol sulfate 2.5 mg/3 mL (0.083 %) solution for nebulization 2.5 mg (3 mL) inhalation Q4H PRN breathing #180 vials 05/17/22 [Rx Last Taken Unknown] tramadol 50 mg tablet 50 mg PO BID PRN 11/16/22 [History Last Taken Unknown] albuterol sulfate 90 mcg/actuation aerosol inhaler (Ventolin HFA) 2 puff inhalation Q4H PRN shortness of breath or wheezing #1 ea 12/10/22 [Rx Last Taken Unknown] fluticasone propionate 230 mcg-salmeterol 21 mcg/actuation HFA inhaler (Advair HFA) 2 puff inhalation BID lungs #3 ea 12/10/22 [Rx Last Taken Unknown] montelukast 10 mg tablet (Singulair) 10 mg PO QHS asthma #90 tabs 12/10/22 [Rx Last Taken Unknown] atorvastatin 10 mg tablet 10 mg PO QHS #90 tabs 12/21/22 [Rx Last Taken Unknown] apixaban 5 mg tablet (Eliquis) 5 mg PO BID anticoagulant #180 tabs 02/28/23 [Rx Last Taken Unknown] diltiazem HCl 180 mg capsule,extended release 24 hr (Cardizem CD) 180 mg PO DAILY heart #90 caps 02/28/23 [Rx Last Taken Unknown] flecainide 50 mg tablet 50 mg PO BID HEART #180 tabs 02/28/23 [Rx Last Taken Unknown] ipratropium bromide 42 mcg (0.06 %) nasal spray intranasal TID 03/10/23 [History Last Taken Unknown] latanoprost 0.005 % eye drops drp ophthalmic (eye) QPM 03/10/23 [History Last Taken Unknown] doxycycline hyclate 100 mg tablet 100 mg PO BID #20 tabs 04/01/23 [Rx Last Taken Unknown] Allergy/AdvReac Type Severity Reaction Status Date / Time adhesive Allergy SKIN Verified 03/10/23 10:42 TEARS. PAPER TAPE OK azithromycin [From Zithromax] Allergy Rash Verified 03/10/23 10:42 cefuroxime sodium Allergy Rash Verified 03/10/23 10:42 [From Zinacef] clindamycin Allergy Hives Verified 03/10/23 10:42 nitrofurantoin Allergy Rash Verified 03/10/23 10:42 macrocrystalline [From Macrodantin] Sulfa (Sulfonamide Allergy Rash Verified 03/10/23 10:42 Antibiotics) atenolol AdvReac Severe Peripheal Verified 03/10/23 10:42 edema & cough metoprolol [From Toprol XL] AdvReac Severe Peripheral Verified 03/10/23 10:42 edema & cough duloxetine [From Cymbalta] AdvReac Intermediate made me Verified 03/10/23 10:42 feel really sick Corticosteroids AdvReac Other Verified 03/10/23 10:42 (Glucocorticoids) oxycodone HCl [From Percocet] AdvReac Vomiting Verified 03/10/23 10:42 Family History Mother Hypertension Diabetes Heart disease Pulmonary embolism Father Perforated ulcer Respiratory failure Sister Asthma Hypertension Surgical History H/O section H/O foot surgery H/O hernia repair H/O shoulder surgery H/O: hysterectomy History of appendectomy History of cardioversion (~12/2016) History of left heart catheterization History of total left hip replacement Hx of vein stripping S/P hip replacement S/P hysterectomy Status post hip replacement Status post total hip replacement, left Social History household members: none Smoking Status: Former smoker quit date: 02/14/75 pack-years: 3 second hand exposure: No alcohol intake: never substance use type: does not use caffeine: No what type of physical activity do you participate in: none ROS Constitutional Constitutional: Denies body ache(s), change in weight or fever(s) Eyes Eyes: Denies acute decrease in peripheral vision, change in eye color or discongugate gaze ENT HEENT: Denies abnormal hearing, bleeding gums or dysphagia Cardiovascular Cardiovascular: Denies abdominal bloating, abdominal edema or bluish discoloration of hand/feet Respiratory/Chest Respiratory/Chest: Denies change in mental status, change in phlegm color or difficulty clearing secretions Gastrointestinal Gastrointestinal: Denies anorexia, belching or coffee ground emesis Vital Signs Vital Signs Vital Signs: 05/10/23 10:07 Temperature 97.4 F L Temperature Source Temporal Pulse Rate 85 Respiratory Rate 18 Blood Pressure 190/75 H Blood Pressure Mean 113 Blood Pressure Source Monitor Blood Pressure Position Sitting Blood Pressure Location Right Forearm Oxygen Delivery Method Room Air Weight Weight: 247 kg Body Mass Index (BMI) 102.8 Physical Exam Narrative Vascular: Trophic changes to skin secondary to chronic venous insufficiency. Palpable dorsalis pedis and posterior tibial pulses, 2 out of 4 bilateral lower extremity. Atrophic changes noted to skin of the foot with skin thinning kind, shiny, taut appearance absent digital hair growth. Neurologic: Light touch protective sensation intact. No evidence of clonus or Babinski. Dermatologic: Full-thickness ulceration to the right medial ankle along course of great saphenous vein demonstrates a fibrogranular base. Pre and postdebridement measurements documented nursing notes. No deep probing or undermining. Some mild periwound erythema and warmth noted. No other signs of infection. Musculoskeletal: No pain with calf squeeze. No gross musculoskeletal deformity contributing to this wound formation. 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 Muscular strength is full to bilateral lower extremity compartments. Debridement Note Debridement Note Post-Debridement Measurements and Additional Note: Post-Debridement Measurements/Treatment WC - Nurse 1 - General Ulcer Assessment Start: 05/10/23 09:49 Freq: Status: Active Protocol: [email or web address] Activity Type Activity Date Activity User E-sign Co-sign Detail Recorded Client Recorded Date Recorded By Document 05/10/23 10:07 KW Desktop 05/10/23 10:18 KW 05/10/23 10:07 WC - Today's Visit Information Type of service Initial Visit Arrival Mode Ambulatory, Walker Accompanied by friend- Teresita Patient Identification Verified (Name & Yes ) Height and Weight Height 5 ft 1 in Weight 247 kg Weight in Pounds 544.5 lbs Weight Measurement Method Estimated by Patient Body Mass Index (BMI) 102.8 BMI Classification Obese BSA - Adrian 2.89 Vital Signs Temperature (97.8 F-99.1 F) 97.4 F L Temperature Source Temporal Pulse Rate (60-100) 85 Pulse Location Monitor Respiratory Rate (12-18) 18 Respiratory rate source Observation Oxygen Delivery Method Room Air Blood Pressure (90/60-120/80) 190/75 H Blood Pressure Mean 113 Source Monitor Position Sitting Blood Pressure Location Right Forearm History Since Last Visit- (Skip if this is Patient's initial visit) Left Footwear Regular Shoe Right Footwear Regular Shoe Pain Scale: 0-10 Numeric Is Patient Pain Free? Yes WC - Nurse 1 - General Ulcer Measurement Start: 05/10/23 09:49 Freq: Status: Active Protocol: Activity Type Activity Date Activity User E-sign Co-sign Detail Recorded Client Recorded Date Recorded By Document 05/10/23 10:07 [email or web address] [email or web address] 05/10/23 10:18 KW 05/10/23 10:07 Wound Center Nurse 1 #3 RT MED ANKLE -Current Size (cm) - Length 0.4 -Current Size (cm) - Width 0.2 -Current Size (cm) - Depth 0.1 -Total Square Cm 0.08 -Date of Last Picture (Recall this 05/10/23 field) -Photo Taken Yes -Exudate Amt Large -Exudate Type Serosanguineous -Wound Margin Distinct, Outline Attached -Granulation Amt None Present (0 %) -Necrosis Amt Large (67-100%) -Necrotic Tissue Type Adherent Slough -Texture (Jagruti-wound Skin Appearance) Assessed -Moisture (Jagruti-wound Skin Appearance) Assessed, Weeping -Color (Jagruti-wound Skin Appearance) Assessed, Erythema -Temperature (Jagruti-wound Skin No Abnormality Appearance) (Pt Warm) -Tenderness on Palpation (Jagruti-wound No Skin Appearance) -Ulcer Cleansing Rinsed/ Irrigated with Saline -Foul Odor after Cleansing No -Anesthetic Used 5% Lidocaine Gel Right Calf (cm) 35 Right Ankle (cm) 21 Assessment/Plan Assessment/Plan (1) Non-pressure chronic ulcer of right ankle with fat layer exposed: CODE(S): L97.312 - Non-pressure chronic ulcer of right ankle with fat layer exposed PLAN: Exam performed Recent arterial studies within normal limits Patient has venous insufficiency with chronic venous venous leg ulceration right lower extremity Right lower extremity wound was excisionally debrided down to including level of subcutaneous tissue of all nonviable tissue using a throat 3 mm dermal curette. Patient tolerated procedure well. Topical anesthesia used. Pre and postdebridement measurements documented nursing notes. Hemostasis obtained with light compression. Today wound was dressed with Adaptic Aquacel Ag, Unna boot. Patient will follow-up on Tuesday for a nurse visit dressing change. Patient will follow-up in 1 week for continued care. Postdebridement the wound was flushed and cultured patient was given a prescription for doxycycline. (2) Venous insufficiency (chronic) (peripheral): CODE(S): I87.2 - Venous insufficiency (chronic) (peripheral)
[2023-05-13 11:21] VITALS: BP 149/56; PULSE 85; RESP 18; TEMP 35.7; BMI 102.8
--- NOTE | 2023-05-20 11:12 | WC ---
3.26.24 RT MED ANKLE INITIAL
== END 2023-05-15 23:59 | disposition home or self-care (01) ==
LOC: WC 11:15
PROVIDERS: PCP Family Medicine; Referring Provider Podiatrist; Visit Provider Podiatrist
DX: E11.622 Type 2 diabetes mellitus with other skin ulcer (principal); L97.312 Non-pressure chronic ulcer of right ankle with fat layer exposed; I11.0 Hypertensive heart disease with heart failure; I50.32 Chronic diastolic (congestive) heart failure; J44.1 Chronic obstructive pulmonary disease with (acute) exacerbation; E78.5 Hyperlipidemia, unspecified; Z87.891 Personal history of nicotine dependence; D50.9 Iron deficiency anemia, unspecified; I87.2 Venous insufficiency (chronic) (peripheral)
CPT/HCPCS: 11042; 29580; 87070; 87075; 87077; 87186; 87205; 99213; G0463

== ENCOUNTER 2023-06-14 09:30 | Outpatient (RCR) | payer MEDICARE, OTHER, SELFPAY ==
[2023-05-16 00:53] VITALS: BP 149/56; PULSE 85; RESP 18; TEMP 35.7; BMI 102.8
[2023-05-17 10:33] VITALS: BP 158/83; PULSE 92; RESP 18; TEMP 36.3; BMI 102.8
--- NOTE | 2023-05-17 11:15 | PN.PCM_ITS ---
History of Present Illness Date of Service: 05/17/23 Chief Complaint: Follow-up surgical wound dehiscence History of Wound: Patient has had this wound for several weeks and has noticed worsening with increased serous drainage. Patient denies any fever chills nausea vomiting chest pain calf pain shortness of breath.68-year-old female presents today with a venous leg ulceration to her right leg. Patient has no other complaints. Objective Data Objective Data Vital Signs: Vital Signs Temp Pulse Resp BP 97.3 F L 92 18 158/83 H 05/17/23 10:33 05/17/23 10:33 05/17/23 10:33 05/17/23 10:33 Weight: 247 kg Body Mass Index (BMI) 102.8 Physical Exam Narrative Vascular: Trophic changes to skin secondary to chronic venous insufficiency. Palpable dorsalis pedis and posterior tibial pulses, 2 out of 4 bilateral lower extremity. Atrophic changes noted to skin of the foot with skin thinning kind, shiny, taut appearance absent digital hair growth. Neurologic: Light touch protective sensation intact. No evidence of clonus or Babinski. Dermatologic: Full-thickness ulceration to the right medial ankle along course of great saphenous vein demonstrates a fibrogranular base. Pre and postdebridement measurements documented nursing notes. No deep probing or undermining. Some mild periwound erythema and warmth noted. No other signs of infection. Musculoskeletal: No pain with calf squeeze. No gross musculoskeletal deformity contributing to this wound formation. 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 Muscular strength is full to bilateral lower extremity compartments. 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 ) Arrival Mode Ambulatory Transfer Assistance None Patient Identification Verified (Name & Yes ) Patient Requires Transmission-Based No Precautions Height and Weight Body Mass Index (BMI) 102.8 BMI Classification Obese Vital Signs Temperature (97.8 F-99.1 F) 97.3 F L Temperature Source Temporal Pulse Rate (60-100) 92 Pulse Location Monitor Respiratory Rate (12-18) 18 Respiratory rate source Observation Blood Pressure (90/60-120/80) 158/83 H Blood Pressure Mean (mm Hg) 108 Source Monitor Position Semi-Fowlers Blood Pressure Location Left Arm History Since Last Visit- (Skip if this is Patient's initial visit) Have you changed medications since your No last visit? Any new allergies or adverse reactions No Had a fall/change in ADL's that may No increase risk of falls Signs or symptoms of abuse and/or No neglect since last visit Have you been in the hospital since your No last visit? Has dressing in place as prescribed Yes Has compression in place as prescribed No Has offloadiing in place as prescribed Yes Experienced any changes in pain level or No management Pain Scale: 0-10 Numeric Is Patient Pain Free? Yes WC - Nurse 1 - General Ulcer Measurement Start: 05/17/23 10:33 Freq: Status: Active Protocol: Activity Type Activity Date Activity User E-sign Co-sign Detail Recorded Client Recorded Date Recorded By Document 05/17/23 10:33 RB Desktop 05/17/23 10:46 RB 05/17/23 10:33 Wound Center Nurse 1 #3 RT MED ANKLE -Combined with other wound No -Current Size (cm) - Length 1 -Current Size (cm) - Width 1.1 -Current Size (cm) - Depth 0.2 -Total Square Cm 1.1 -Tunneling No -Undermining/Tunneling No -Circular Undermining No -Exudate Amt Medium -Exudate Type Serosanguineous -Wound Margin Distinct, Outline Attached -Granulation Amt Medium (34-66%) -Granulation Quality [place] -Slough/Fibrin Yes -Necrosis Amt Medium (34-66%) -Necrotic Tissue Type Adherent Slough -Structure Exposed N/A -Texture (Jagruti-wound Skin Appearance) Assessed -Moisture (Jagruti-wound Skin Appearance) Maceration -Color (Jagruti-wound Skin Appearance) Assessed -Temperature (Jagruti-wound Skin No Abnormality Appearance) (Pt Warm) -Tenderness on Palpation (Jagruti-wound No Skin Appearance) -Ulcer Cleansing Wound Cleanser -Foul Odor after Cleansing No -Anesthetic Used 5% Lidocaine Gel Lower Limb Edema Present Yes Right Calf (cm) 37.5 Right Ankle (cm) 22.3 WC - Nurse 2 - General Ulcer CM Notes Start: 05/17/23 10:33 Freq: Status: Active Protocol: Activity Type Activity Date Activity User E-sign Co-sign Detail Recorded Client Recorded Date Recorded By Document 05/17/23 11:05 Laptop 05/17/23 11:12 05/17/23 11:05 Wound Center Nurse 2 #3 RT MED ANKLE -Time 11:09 -Correct Patient Yes -Correct Side, Site, Position Yes -Correct Procedure Yes -Procedure Performed Yes -Type of Procedure Debridement -Clinical Debridement Subcutaneous -Tissue Removed Subcutaneous -Post Debridement (cm) - Length 1.0 -Post Debridement (cm) - Width 1.0 -Post Debridement (cm) - Depth 0.1 -Total Square (Post) (cm) 1.00 -Area of Debridement (cm) - Length 1.0 -Area of Debridement (cm) - Width 1.0 -Total Square (Area) (cm) 1.00 -Tunneling No -Undermining/Tunneling No -Circular Undermining No -Wound/Ulcer Outcome Not Healed -Ulcer Cleansing Rinsed/ Irrigated with Saline -Foul Odor after Cleansing No -Bioengineered Tissue No -Bleeding Controlled with Pressure -Treatment Response Procedure Tolerated Well -Offloading No -Debridement - Subq, 1st 20sq cm Yes Pain Scale: 0-10 Numeric Is Patient Pain Free? Yes Assessment/Plan Assessment/Plan (1) Non-pressure chronic ulcer of right ankle with fat layer exposed: CODE(S): L97.312 - Non-pressure chronic ulcer of right ankle with fat layer exposed PLAN: Exam performed Recent arterial studies within normal limits Patient has venous insufficiency with chronic venous venous leg ulceration right lower extremity Right lower extremity wound was excisionally debrided down to including level of subcutaneous tissue of all nonviable tissue using a throat 3 mm dermal curette. Patient tolerated procedure well. Topical anesthesia used. Pre and postdebridement measurements documented nursing notes. Hemostasis obtained with light compression. Today wound was dressed with Aquacel Ag, 3m compression wrap. Patient will follow-up in 1 week for continued care. Postdebridement the wound was flushed and cultured patient was given a prescription for doxycycline. (2) Venous insufficiency (chronic) (peripheral): CODE(S): I87.2 - Venous insufficiency (chronic) (peripheral)
[2023-05-20 09:26] VITALS: BP 173/68; PULSE 98; RESP 18; TEMP 36.6
[2023-05-24 08:40] VITALS: BP 171/101; PULSE 95; RESP 18; BMI 102.8
--- NOTE | 2023-05-24 10:29 | PCM.WC.PN ---
History of Present Illness Date of Service: 05/24/23 Chief Complaint: Follow-up surgical wound dehiscence History of Wound: Patient has had this wound for several weeks and has noticed worsening with increased serous drainage. Patient denies any fever chills nausea vomiting chest pain calf pain shortness of breath.68-year-old female presents today with a venous leg ulceration to her right leg. Patient has no other complaints. Objective Data Objective Data Vital Signs: Vital Signs Temp Pulse Resp BP O2 Del Method 98 F 95 18 171/101 H Room Air 05/20/23 09:26 05/24/23 08:40 05/24/23 08:40 05/24/23 08:40 05/24/23 08:40 Oxygen Delivery Method Room Air Weight: 247 kg Body Mass Index (BMI) 102.8 Physical Exam Narrative Vascular: Trophic changes to skin secondary to chronic venous insufficiency. Palpable dorsalis pedis and posterior tibial pulses, 2 out of 4 bilateral lower extremity. Atrophic changes noted to skin of the foot with skin thinning kind, shiny, taut appearance absent digital hair growth. Neurologic: Light touch protective sensation intact. No evidence of clonus or Babinski. Dermatologic: Full-thickness ulceration to the right medial ankle along course of great saphenous vein demonstrates a fibrogranular base. Pre and postdebridement measurements documented nursing notes. No deep probing or undermining. Some mild periwound erythema and warmth noted. No other signs of infection. Musculoskeletal: No pain with calf squeeze. No gross musculoskeletal deformity contributing to this wound formation. 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 Muscular strength is full to bilateral lower extremity compartments. Debridement Note Debridement Note Post-Debridement Measurements and Additional Note: Post-Debridement Measurements/Treatment - Nurse 1 - General Ulcer Assessment Start: 05/17/23 10:33 Freq: Status: Active Protocol: MARYANNEXGenesis Activity Type Activity Date Activity User E-sign Co-sign Detail Recorded Client Recorded Date Recorded By Document 05/17/23 10:33 RB Desktop 05/17/23 10:46 RB Document 05/24/23 08:40 KW Desktop 05/24/23 08:45 KW 05/17/23 05/24/23 10:33 08:40 - Today's Visit Information Type of service Follow-up Visit Follow-up Visit (Physician/[facility] (Physician/[facility] ) ) Arrival Mode Ambulatory Ambulatory, Walker Transfer Assistance None Patient Identification Verified (Name & Yes Yes ) Patient Requires Transmission-Based No Precautions Height and Weight Body Mass Index (BMI) 102.8 102.8 BMI Classification Obese Obese Vital Signs Temperature (97.8 F-99.1 F) 97.3 F L Temperature Source Temporal Pulse Rate (60-100) 92 95 Pulse Location Monitor Monitor Respiratory Rate (12-18) 18 18 Respiratory rate source Observation Observation Oxygen Delivery Method Room Air Blood Pressure (90/60-120/80) 158/83 H 171/101 H Blood Pressure Mean (mm Hg) 108 124 Source Monitor Monitor Position Semi-Fowlers Sitting Blood Pressure Location Left Arm Left Arm History Since Last Visit- (Skip if this is Patient's initial visit) Have you changed medications since your No No last visit? Any new allergies or adverse reactions No No Had a fall/change in ADL's that may No No increase risk of falls Signs or symptoms of abuse and/or No No neglect since last visit Have you been in the hospital since your No No last visit? Has dressing in place as prescribed Yes Yes Has compression in place as prescribed No Yes Has offloadiing in place as prescribed Yes Yes Experienced any changes in pain level or No No management Left Footwear Removable Cast Walker/Walking Boot Right Footwear Surgical Shoe with pressure relief insole Pain Scale: 0-10 Numeric Is Patient Pain Free? Yes Yes WC - Nurse 1 - General Ulcer Measurement Start: 05/17/23 10:33 Freq: Status: Active Protocol: Activity Type Activity Date Activity User E-sign Co-sign Detail Recorded Client Recorded Date Recorded By Document 05/17/23 10:33 RB Desktop 05/17/23 10:46 RB Document 05/24/23 08:40 KW Desktop 05/24/23 08:45 KW 05/17/23 05/24/23 10:33 08:40 Wound Center Nurse 1 #3 RT MED ANKLE -Combined with other wound No -Current Size (cm) - Length 1 0.8 -Current Size (cm) - Width 1.1 0.4 -Current Size (cm) - Depth 0.2 0.2 -Total Square Cm 1.1 0.32 -Date of Last Picture (Recall this 05/24/23 field) -Photo Taken Yes -Tunneling No -Undermining/Tunneling No -Circular Undermining No -Exudate Amt Medium Medium -Exudate Type Serosanguineous Serosanguineous -Wound Margin Distinct, Distinct, Outline Outline Attached Attached -Granulation Amt Medium (34-66%) -Granulation Quality [place] -Slough/Fibrin Yes -Necrosis Amt Medium (34-66%) Large (67-100%) -Necrotic Tissue Type Adherent Slough Adherent Slough -Structure Exposed N/A -Texture (Jagruti-wound Skin Appearance) Assessed Assessed -Moisture (Jagruti-wound Skin Appearance) Maceration Assessed -Color (Jagruti-wound Skin Appearance) Assessed Assessed -Temperature (Jagruti-wound Skin No Abnormality No Abnormality Appearance) (Pt Warm) (Pt Warm) -Tenderness on Palpation (Jagruti-wound No Skin Appearance) -Ulcer Cleansing Wound Cleanser Soap and Water -Foul Odor after Cleansing No -Anesthetic Used 5% Lidocaine 5% Lidocaine Gel Gel Lower Limb Edema Present Yes Right Calf (cm) 37.5 34.5 Right Ankle (cm) 22.3 21.4 WC - Nurse 2 - General Ulcer CM Notes Start: 05/17/23 10:33 Freq: Status: Active Protocol: Activity Type Activity Date Activity User E-sign Co-sign Detail Recorded Client Recorded Date Recorded By Document 05/17/23 11:05 Twoodo Laptop 05/17/23 11:12 Document 05/24/23 09:37 Laptop 05/24/23 09:39 05/17/23 05/24/23 11:05 09:37 Wound Center Nurse 2 #3 RT MED ANKLE -Time 11:09 09:38 -Correct Patient Yes Yes -Correct Side, Site, Position Yes Yes -Correct Procedure Yes Yes -Procedure Performed Yes Yes -Type of Procedure Debridement Debridement -Clinical Debridement Subcutaneous Subcutaneous -Tissue Removed Subcutaneous Subcutaneous -Post Debridement (cm) - Length 1.0 0.8 -Post Debridement (cm) - Width 1.0 0.5 -Post Debridement (cm) - Depth 0.1 0.1 -Total Square (Post) (cm) 1.00 0.40 -Area of Debridement (cm) - Length 1.0 0.8 -Area of Debridement (cm) - Width 1.0 0.5 -Total Square (Area) (cm) 1.00 0.40 -Tunneling No No -Undermining/Tunneling No No -Circular Undermining No No -Wound/Ulcer Outcome Not Healed Not Healed -Ulcer Cleansing Rinsed/ Rinsed/ Irrigated with Irrigated with Saline Saline -Foul Odor after Cleansing No No -Bioengineered Tissue No Yes -Type of Bioengineered Tissue Epifix 18mm Disc -Expiration Date 12/16/27 -Product Lot Number [id number] -Percent Used 100 -Lot number of Saline Used [id number] -Bleeding Controlled with Pressure Pressure -Treatment Response Procedure Procedure Tolerated Well Tolerated Well -Offloading No No -Debridement - Subq, 1st 20sq cm Yes No -Apply Skin Sub - 1st 25 sq cm - Legs 1 -Epifix 18mm Disc 3 Pain Scale: 0-10 Numeric Is Patient Pain Free? Yes Yes WC - Nurse 3 - General Ulcer D/C NN Start: 05/17/23 10:33 Freq: Status: Active Protocol: Activity Type Activity Date Activity User E-sign Co-sign Detail Recorded Client Recorded Date Recorded By Document 05/17/23 11:30 RB Desktop 05/17/23 11:34 RB Document 05/20/23 09:26 MT Desktop 05/20/23 09:42 MT Document 05/24/23 09:49 DL Desktop 05/24/23 09:51 DL 05/17/23 05/20/23 05/24/23 11:30 09:26 09:49 Wound Care Center Nurse 3 #3 RT MED ANKLE -Ulcer Cleansing Rinsed/ Soap and Water Not Cleansed Irrigated with Saline -Foul Odor after Cleansing No No -Negative Pressure Wound Therapy N/A -Primary Dressing Applied Aquacel AG 4x4 -Other Dressing aquacel ag Epifix -Primary Dressing Covered/Secured with Dry Gauze Dry Gauze, Dry Gauze Secured with Tape -Other Covering ABD -Aquacel AG 4x4 1 Right -Multi-Layered Wrap Application Multi-Layer Multi-Layer Multi-Layer Comp - Right ($ Comp - Right ($ Comp - Right ($ ) ) ) Treatment Response Procedure Procedure Tolerated Well Tolerated Well Vital Signs Temperature (97.8 F-99.1 F) 98 F Temperature Source Temporal Pulse Rate (60-100) 98 Pulse Location Monitor Respiratory Rate (12-18) 18 Respiratory rate source Observation Oxygen Delivery Method Room Air Blood Pressure (90/60-120/80) 173/68 H Blood Pressure Mean (mm Hg) 103 Source Monitor Position Sitting Blood Pressure Location Left Arm Pain Scale: 0-10 Numeric Is Patient Pain Free? Yes Yes Yes WC - Visit Discharge Discharge Condition Stable Stable Stable Ambulatory Status Ambulatory Ambulatory, Ambulatory, Walker Walker Transportation Private Auto Private Auto Private Auto Medication Reconcilliation completed & No No provided to patient/care provider Clinical Summary of Care Provided Yes Yes Notes: nurse visit Facility Type Home Health Orders Sent Yes Assessment/Plan Assessment/Plan (1) Non-pressure chronic ulcer of right ankle with fat layer exposed: CODE(S): L97.312 - Non-pressure chronic ulcer of right ankle with fat layer exposed PLAN: Exam performed Recent arterial studies within normal limits Patient has venous insufficiency with chronic venous venous leg ulceration right lower extremity Right lower extremity wound was excisionally debrided down to including level of subcutaneous tissue of all nonviable tissue using a throat 3 mm dermal curette. Patient tolerated procedure well. Topical anesthesia used. Pre and postdebridement measurements documented nursing notes. Hemostasis obtained with light compression. Today wound was dressed with Aquacel Ag, 3m compression wrap. Patient will follow-up in 1 week for continued care. Postdebridement the wound was flushed and cultured patient was given a prescription for doxycycline. (2) Venous insufficiency (chronic) (peripheral): CODE(S): I87.2 - Venous insufficiency (chronic) (peripheral)
--- NOTE | 2023-05-27 09:45 | WC ---
4.9.24 RT MED ANKLE
[2023-05-31 11:02] VITALS: BP 154/74; PULSE 83; RESP 18; TEMP 36.3; BMI 102.8
--- NOTE | 2023-05-31 11:29 | PCM.WC.PN ---
History of Present Illness Date of Service: 05/31/23 Chief Complaint: Follow-up surgical wound dehiscence History of Wound: Patient has had this wound for several weeks and has noticed worsening with increased serous drainage. Patient denies any fever chills nausea vomiting chest pain calf pain shortness of breath.68-year-old female presents today with a venous leg ulceration to her right leg. Patient has no other complaints. Objective Data Objective Data Vital Signs: Vital Signs Temp Pulse Resp BP O2 Del Method 97.4 F L 83 18 154/74 H Room Air 05/31/23 11:02 05/31/23 11:02 05/31/23 11:02 05/31/23 11:02 05/31/23 11:02 Oxygen Delivery Method Room Air Weight: 247 kg Body Mass Index (BMI) 102.8 Physical Exam Narrative Vascular: Trophic changes to skin secondary to chronic venous insufficiency. Palpable dorsalis pedis and posterior tibial pulses, 2 out of 4 bilateral lower extremity. Atrophic changes noted to skin of the foot with skin thinning kind, shiny, taut appearance absent digital hair growth. Neurologic: Light touch protective sensation intact. No evidence of clonus or Babinski. Dermatologic: Full-thickness ulceration to the right medial ankle along course of great saphenous vein demonstrates a fibrogranular base. Pre and postdebridement measurements documented nursing notes. No deep probing or undermining. Some mild periwound erythema and warmth noted. No other signs of infection. Musculoskeletal: No pain with calf squeeze. No gross musculoskeletal deformity contributing to this wound formation. 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 Muscular strength is full to bilateral lower extremity compartments. Debridement Note Debridement Note Post-Debridement Measurements and Additional Note: Post-Debridement Measurements/Treatment FABRIZIO - Nurse 1 - General Ulcer Assessment Start: 05/17/23 10:33 Freq: Status: Active Protocol: MARYANNEXT Activity Type Activity Date Activity User E-sign Co-sign Detail Recorded Client Recorded Date Recorded By Document 05/17/23 10:33 RB Desktop 05/17/23 10:46 RB Document 05/24/23 08:40 KW Desktop 05/24/23 08:45 KW Document 05/31/23 11:02 KW Desktop 05/31/23 11:12 KW 05/17/23 05/24/23 05/31/23 10:33 08:40 11:02 WC - Today's Visit Information Type of service Follow-up Visit Follow-up Visit Follow-up Visit (Physician/[facility] [employer] [facility] (Physician/[facility] [employer] [facility] (Physician/[facility] [employer] [facility] [facility] ) ) ) Arrival Mode Ambulatory Ambulatory, Ambulatory, Walker Walker Transfer Assistance None Patient Identification Verified (Name & Yes Yes Yes ) Patient Requires Transmission-Based No Precautions Height and Weight Body Mass Index (BMI) 102.8 102.8 102.8 BMI Classification Obese Obese Obese Vital Signs Temperature (97.8 F-99.1 F) 97.3 F L 97.4 F L Temperature Source Temporal Temporal Pulse Rate (60-100) 92 95 83 Pulse Location Monitor Monitor Monitor Respiratory Rate (12-18) 18 18 18 Respiratory rate source Observation Observation Observation Oxygen Delivery Method Room Air Room Air Blood Pressure (90/60-120/80) 158/83 H 171/101 H 154/74 H Blood Pressure Mean (mm Hg) 108 124 100 Source Monitor Monitor Monitor Position Semi-Fowlers Sitting Semi-Fowlers Blood Pressure Location Left Arm Left Arm Left Forearm History Since Last Visit- (Skip if this is Patient's initial visit) Have you changed medications since your No No No last visit? Any new allergies or adverse reactions No No No Had a fall/change in ADL's that may No No No increase risk of falls Signs or symptoms of abuse and/or No No No neglect since last visit Have you been in the hospital since your No No No last visit? Has dressing in place as prescribed Yes Yes Yes Has compression in place as prescribed No Yes N/A Has offloadiing in place as prescribed Yes Yes Yes Experienced any changes in pain level or No No management Left Footwear Removable Cast Removable Cast Walker/Walking Walker/Walking Boot Boot Right Footwear Surgical Shoe Surgical Shoe with pressure with pressure relief insole relief insole Pain Scale: 0-10 Numeric Is Patient Pain Free? Yes Yes Yes - Nurse 1 - General Ulcer Measurement Start: 05/17/23 10:33 Freq: Status: Active Protocol: Activity Type Activity Date Activity User E-sign Co-sign Detail Recorded Client Recorded Date Recorded By Document 05/17/23 10:33 RB Desktop 05/17/23 10:46 RB Document 05/24/23 08:40 KW Desktop 05/24/23 08:45 KW Document 05/31/23 11:02 KW Desktop 05/31/23 11:12 KW 05/17/23 05/24/23 05/31/23 10:33 08:40 11:02 Wound Center Nurse 1 #3 RT MED ANKLE -Combined with other wound No No -Current Size (cm) - Length 1 0.8 1.1 -Current Size (cm) - Width 1.1 0.4 0.5 -Current Size (cm) - Depth 0.2 0.2 0.1 -Total Square Cm 1.1 0.32 0.55 -Date of Last Picture (Recall this 05/24/23 field) -Photo Taken Yes Yes -Tunneling No No -Undermining/Tunneling No No -Circular Undermining No No -Exudate Amt Medium Medium Medium -Exudate Type Serosanguineous Serosanguineous Serosanguineous -Wound Margin Distinct, Distinct, Distinct, Outline Outline Outline Attached Attached Attached -Granulation Amt Medium (34-66%) Medium (34-66%) -Granulation Quality [place] -Slough/Fibrin Yes Yes -Necrosis Amt Medium (34-66%) Large (67-100%) Medium (34-66%) -Necrotic Tissue Type Adherent Slough Adherent Slough Adherent Slough -Structure Exposed N/A N/A -Texture (Jagruti-wound Skin Appearance) Assessed Assessed Scarring -Moisture (Jagruti-wound Skin Appearance) Maceration Assessed Assessed -Color (Jagruti-wound Skin Appearance) Assessed Assessed Assessed -Temperature (Jagruti-wound Skin No Abnormality No Abnormality No Abnormality Appearance) (Pt Warm) (Pt Warm) (Pt Warm) -Tenderness on Palpation (Jagruti-wound No No Skin Appearance) -Ulcer Cleansing Wound Cleanser Soap and Water Wound Cleanser -Foul Odor after Cleansing No No -Anesthetic Used 5% Lidocaine 5% Lidocaine 5% Lidocaine Gel Gel Gel Lower Limb Edema Present Yes Yes Right Calf (cm) 37.5 34.5 Right Ankle (cm) 22.3 21.4 Left Calf (cm) 36 Left Ankle (cm) 21 WC - Nurse 2 - General Ulcer CM Notes Start: 05/17/23 10:33 Freq: Status: Active Protocol: Activity Type Activity Date Activity User E-sign Co-sign Detail Recorded Client Recorded Date Recorded By Document 05/17/23 11:05 Laptop 05/17/23 11:12 Document 05/24/23 09:37 Laptop 05/24/23 09:39 Document 05/31/23 11:21 Laptop 05/31/23 11:27 05/17/23 05/24/23 05/31/23 11:05 09:37 11:21 Wound Center Nurse 2 #3 RT MED ANKLE -Time 11:09 09:38 11:21 -Correct Patient Yes Yes Yes -Correct Side, Site, Position Yes Yes Yes -Correct Procedure Yes Yes Yes -Procedure Performed Yes Yes Yes -Type of Procedure Debridement Debridement Debridement -Clinical Debridement Subcutaneous Subcutaneous Subcutaneous -Tissue Removed Subcutaneous Subcutaneous Subcutaneous -Post Debridement (cm) - Length 1.0 0.8 0.5 -Post Debridement (cm) - Width 1.0 0.5 1.2 -Post Debridement (cm) - Depth 0.1 0.1 0.2 -Total Square (Post) (cm) 1.00 0.40 0.60 -Area of Debridement (cm) - Length 1.0 0.8 0.5 -Area of Debridement (cm) - Width 1.0 0.5 1.2 -Total Square (Area) (cm) 1.00 0.40 0.60 -Tunneling No No No -Undermining/Tunneling No No No -Circular Undermining No No No -Wound/Ulcer Outcome Not Healed Not Healed Not Healed -Ulcer Cleansing Rinsed/ Rinsed/ Rinsed/ Irrigated with Irrigated with Irrigated with Saline Saline Saline -Foul Odor after Cleansing No No No -Bioengineered Tissue No Yes Yes -Type of Bioengineered Tissue Epifix 18mm Epifix 18mm Disc Disc -Expiration Date 12/16/27 12/16/27 -Product Lot Number [id number] -Percent Used 100 100 -Lot number of Saline Used [id number] -Bleeding Controlled with Pressure Pressure Pressure -Treatment Response Procedure Procedure Procedure Tolerated Well Tolerated Well Tolerated Well -Offloading No No No -Debridement - Subq, 1st 20sq cm Yes No No -Apply Skin Sub - 1st 25 sq cm - Legs 1 1 -Epifix 18mm Disc 3 3 Pain Scale: 0-10 Numeric Is Patient Pain Free? Yes Yes Yes WC - Nurse 3 - General Ulcer D/C NN Start: 05/17/23 10:33 Freq: Status: Active Protocol: Activity Type Activity Date Activity User E-sign Co-sign Detail Recorded Client Recorded Date Recorded By Document 05/17/23 11:30 RB Desktop 05/17/23 11:34 RB Document 05/20/23 09:26 MT Desktop 05/20/23 09:42 MT Document 05/24/23 09:49 DL Desktop 05/24/23 09:51 DL 05/17/23 05/20/23 05/24/23 11:30 09:26 09:49 Wound Care Center Nurse 3 #3 RT MED ANKLE -Ulcer Cleansing Rinsed/ Soap and Water Not Cleansed Irrigated with Saline -Foul Odor after Cleansing No No -Negative Pressure Wound Therapy N/A -Primary Dressing Applied Aquacel AG 4x4 -Other Dressing aquacel ag Epifix -Primary Dressing Covered/Secured with Dry Gauze Dry Gauze, Dry Gauze Secured with Tape -Other Covering ABD -Aquacel AG 4x4 1 Right -Multi-Layered Wrap Application Multi-Layer Multi-Layer Multi-Layer Comp - Right ($ Comp - Right ($ Comp - Right ($ ) ) ) Treatment Response Procedure Procedure Tolerated Well Tolerated Well Vital Signs Temperature (97.8 F-99.1 F) 98 F Temperature Source Temporal Pulse Rate (60-100) 98 Pulse Location Monitor Respiratory Rate (12-18) 18 Respiratory rate source Observation Oxygen Delivery Method Room Air Blood Pressure (90/60-120/80) 173/68 H Blood Pressure Mean (mm Hg) 103 Source Monitor Position Sitting Blood Pressure Location Left Arm Pain Scale: 0-10 Numeric Is Patient Pain Free? Yes Yes Yes WC - Visit Discharge Discharge Condition Stable Stable Stable Ambulatory Status Ambulatory Ambulatory, Ambulatory, Walker Walker Transportation Private Auto Private Auto Private Auto Medication Reconcilliation completed & No No provided to patient/care provider Clinical Summary of Care Provided Yes Yes Notes: nurse visit Facility Type Home Health Orders Sent Yes Assessment/Plan Assessment/Plan (1) Non-pressure chronic ulcer of right ankle with fat layer exposed: CODE(S): L97.312 - Non-pressure chronic ulcer of right ankle with fat layer exposed PLAN: Exam performed Recent arterial studies within normal limits Patient has venous insufficiency with chronic venous venous leg ulceration right lower extremity Right lower extremity wound was excisionally debrided down to including level of subcutaneous tissue of all nonviable tissue using a throat 3 mm dermal curette. Patient tolerated procedure well. Topical anesthesia used. Pre and postdebridement measurements documented nursing notes. Hemostasis obtained with light compression. Today wound was 18 mm disc EpiFix graft. Entire graft used no waste. Graft was secured with overlying wound veil and Steri-Strips. Applied hydrogel DSD with compression. Patient will follow-up in 1 week for continued care. (2) Venous insufficiency (chronic) (peripheral): CODE(S): I87.2 - Venous insufficiency (chronic) (peripheral)
[2023-06-07 10:46] VITALS: BP 189/81; PULSE 76; RESP 18; BMI 102.8
--- NOTE | 2023-06-07 11:15 | PCM.WC.PN ---
History of Present Illness Date of Service: 06/07/23 Chief Complaint: Follow-up surgical wound dehiscence History of Wound: Patient has had this wound for several weeks and has noticed worsening with increased serous drainage. Patient denies any fever chills nausea vomiting chest pain calf pain shortness of breath.68-year-old female presents today with a venous leg ulceration to her right leg. Patient has no other complaints. Objective Data Objective Data Vital Signs: Vital Signs Temp Pulse Resp BP O2 Del Method 97.4 F L 76 18 189/81 H Room Air 05/31/23 11:02 06/07/23 10:46 06/07/23 10:46 06/07/23 10:46 06/07/23 10:46 Oxygen Delivery Method Room Air Weight: 247 kg Body Mass Index (BMI) 102.8 Physical Exam Narrative Vascular: Trophic changes to skin secondary to chronic venous insufficiency. Palpable dorsalis pedis and posterior tibial pulses, 2 out of 4 bilateral lower extremity. Atrophic changes noted to skin of the foot with skin thinning kind, shiny, taut appearance absent digital hair growth. Neurologic: Light touch protective sensation intact. No evidence of clonus or Babinski. Dermatologic: Full-thickness ulceration to the right medial ankle along course of great saphenous vein demonstrates a fibrogranular base. Pre and postdebridement measurements documented nursing notes. No deep probing or undermining. Some mild periwound erythema and warmth noted. No other signs of infection. Musculoskeletal: No pain with calf squeeze. No gross musculoskeletal deformity contributing to this wound formation. 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 Muscular strength is full to bilateral lower extremity compartments. Debridement Note Debridement Note Post-Debridement Measurements and Additional Note: Post-Debridement Measurements/Treatment FABRIZIO - Nurse 1 - General Ulcer Assessment Start: 05/17/23 10:33 Freq: Status: Active Protocol: MARYANNEX[facility]esis Activity Type Activity Date Activity User E-sign Co-sign Detail Recorded Client Recorded Date Recorded By Document 05/17/23 10:33 RB Desktop 05/17/23 10:46 RB Document 05/24/23 08:40 KW Desktop 05/24/23 08:45 KW Document 05/31/23 11:02 KW Desktop 05/31/23 11:12 KW Document 06/07/23 10:46 KW Desktop 06/07/23 10:54 KW 05/17/23 05/24/23 05/31/23 10:33 08:40 11:02 WC - Today's Visit Information Type of service Follow-up Visit Follow-up Visit Follow-up Visit (Physician/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 (Physician/DROP HAMMER 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 (Physician/DROP HAMMER 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 ) ) ) Arrival Mode Ambulatory Ambulatory, Ambulatory, Walker Walker Transfer Assistance None Patient Identification Verified (Name & Yes Yes Yes ) Patient Requires Transmission-Based No Precautions Height and Weight Body Mass Index (BMI) 102.8 102.8 102.8 BMI Classification Obese Obese Obese Vital Signs Temperature (97.8 F-99.1 F) 97.3 F L 97.4 F L Temperature Source Temporal Temporal Pulse Rate (60-100) 92 95 83 Pulse Location Monitor Monitor Monitor Respiratory Rate (12-18) 18 18 18 Respiratory rate source Observation Observation Observation Oxygen Delivery Method Room Air Room Air Blood Pressure (90/60-120/80) 158/83 H 171/101 H 154/74 H Blood Pressure Mean (mm Hg) 108 124 100 Source Monitor Monitor Monitor Position Semi-Fowlers Sitting Semi-Fowlers Blood Pressure Location Left Arm Left Arm Left Forearm History Since Last Visit- (Skip if this is Patient's initial visit) Have you changed medications since your No No No last visit? Any new allergies or adverse reactions No No No Had a fall/change in ADL's that may No No No increase risk of falls Signs or symptoms of abuse and/or No No No neglect since last visit Have you been in the hospital since your No No No last visit? Has dressing in place as prescribed Yes Yes Yes Has compression in place as prescribed No Yes N/A Has offloadiing in place as prescribed Yes Yes Yes Experienced any changes in pain level or No No management Left Footwear Removable Cast Removable Cast Walker/Walking Walker/Walking Boot Boot Right Footwear Surgical Shoe Surgical Shoe with pressure with pressure relief insole relief insole Pain Scale: 0-10 Numeric Is Patient Pain Free? 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 ) Arrival Mode Ambulatory, Walker Transfer Assistance Patient Identification Verified (Name & Yes ) Patient Requires Transmission-Based Precautions Height and Weight Body Mass Index (BMI) 102.8 BMI Classification Obese Vital Signs Temperature (97.8 F-99.1 F) Temperature Source Pulse Rate (60-100) 76 Pulse Location Monitor Respiratory Rate (12-18) 18 Respiratory rate source Observation Oxygen Delivery Method Room Air Blood Pressure (90/60-120/80) 189/81 H Blood Pressure Mean (mm Hg) 117 Source Monitor Position Semi-Fowlers Blood Pressure Location Right Arm History Since Last Visit- (Skip if this is Patient's initial visit) Have you changed medications since your No last visit? Any new allergies or adverse reactions No Had a fall/change in ADL's that may No increase risk of falls Signs or symptoms of abuse and/or No neglect since last visit Have you been in the hospital since your No last visit? Has dressing in place as prescribed Yes Has compression in place as prescribed Yes Has offloadiing in place as prescribed Yes Experienced any changes in pain level or No management Left Footwear Removable Cast Walker/Walking Boot Right Footwear Surgical Shoe with pressure relief insole Pain Scale: 0-10 Numeric Is Patient Pain Free? Yes WC - Nurse 1 - General Ulcer Measurement Start: 05/17/23 10:33 Freq: Status: Active Protocol: Activity Type Activity Date Activity User E-sign Co-sign Detail Recorded Client Recorded Date Recorded By Document 05/17/23 10:33 RB Desktop 05/17/23 10:46 RB Document 05/24/23 08:40 KW Desktop 05/24/23 08:45 KW Document 05/31/23 11:02 KW Desktop 05/31/23 11:12 KW Document 06/07/23 10:46 KW Desktop 06/07/23 10:54 KW 05/17/23 05/24/23 05/31/23 10:33 08:40 11:02 Wound Center Nurse 1 #3 RT MED ANKLE -Combined with other wound No No -Current Size (cm) - Length 1 0.8 1.1 -Current Size (cm) - Width 1.1 0.4 0.5 -Current Size (cm) - Depth 0.2 0.2 0.1 -Total Square Cm 1.1 0.32 0.55 -Date of Last Picture (Recall this 05/24/23 field) -Photo Taken Yes Yes -Tunneling No No -Undermining/Tunneling No No -Circular Undermining No No -Exudate Amt Medium Medium Medium -Exudate Type Serosanguineous Serosanguineous Serosanguineous -Wound Margin Distinct, Distinct, Distinct, Outline Outline Outline Attached Attached Attached -Granulation Amt Medium (34-66%) Medium (34-66%) -Granulation Quality [place] -Slough/Fibrin Yes Yes -Necrosis Amt Medium (34-66%) Large (67-100%) Medium (34-66%) -Necrotic Tissue Type Adherent Slough Adherent Slough Adherent Slough -Structure Exposed N/A N/A -Texture (Jagruti-wound Skin Appearance) Assessed Assessed Scarring -Moisture (Jagruti-wound Skin Appearance) Maceration Assessed Assessed -Color (Jagruti-wound Skin Appearance) Assessed Assessed Assessed -Temperature (Jagruti-wound Skin No Abnormality No Abnormality No Abnormality Appearance) (Pt Warm) (Pt Warm) (Pt Warm) -Tenderness on Palpation (Jagruti-wound No No Skin Appearance) -Ulcer Cleansing Wound Cleanser Soap and Water Wound Cleanser -Foul Odor after Cleansing No No -Anesthetic Used 5% Lidocaine 5% Lidocaine 5% Lidocaine Gel Gel Gel Lower Limb Edema Present Yes Yes Right Calf (cm) 37.5 34.5 Right Ankle (cm) 22.3 21.4 Left Calf (cm) 36 Left Ankle (cm) 21 06/07/23 10:46 Wound Center Nurse 1 #3 RT MED ANKLE -Combined with other wound -Current Size (cm) - Length 0.9 -Current Size (cm) - Width 0.5 -Current Size (cm) - Depth 0.3 -Total Square Cm 0.45 -Date of Last Picture (Recall this field) -Photo Taken -Tunneling -Undermining/Tunneling -Circular Undermining -Exudate Amt Small -Exudate Type Serosanguineous -Wound Margin Distinct, Outline Attached -Granulation Amt Medium (34-66%) -Granulation Quality Red -Slough/Fibrin -Necrosis Amt Medium (34-66%) -Necrotic Tissue Type Adherent Slough -Structure Exposed -Texture (Jagruti-wound Skin Appearance) Assessed, Localized Edema -Moisture (Jagruti-wound Skin Appearance) Assessed -Color (Jagruti-wound Skin Appearance) Assessed -Temperature (Jagruti-wound Skin No Abnormality Appearance) (Pt Warm) -Tenderness on Palpation (Jagruti-wound Yes Skin Appearance) -Ulcer Cleansing Soap and Water -Foul Odor after Cleansing No -Anesthetic Used 5% Lidocaine Gel Lower Limb Edema Present Right Calf (cm) 34.5 Right Ankle (cm) 21.2 Left Calf (cm) Left Ankle (cm) WC - Nurse 2 - General Ulcer CM Notes Start: 05/17/23 10:33 Freq: Status: Active Protocol: Activity Type Activity Date Activity User E-sign Co-sign Detail Recorded Client Recorded Date Recorded By Document 05/17/23 11:05 Laptop 05/17/23 11:12 Document 05/24/23 09:37 Laptop 05/24/23 09:39 Document 05/31/23 11:21 Laptop 05/31/23 11:27 Document 06/07/23 11:11 Laptop 06/07/23 11:13 05/17/23 05/24/23 05/31/23 11:05 09:37 11:21 Wound Center Nurse 2 #3 RT MED ANKLE -Time 11:09 09:38 11:21 -Correct Patient Yes Yes Yes -Correct Side, Site, Position Yes Yes Yes -Correct Procedure Yes Yes Yes -Procedure Performed Yes Yes Yes -Type of Procedure Debridement Debridement Debridement -Clinical Debridement Subcutaneous Subcutaneous Subcutaneous -Tissue Removed Subcutaneous Subcutaneous Subcutaneous -Post Debridement (cm) - Length 1.0 0.8 0.5 -Post Debridement (cm) - Width 1.0 0.5 1.2 -Post Debridement (cm) - Depth 0.1 0.1 0.2 -Total Square (Post) (cm) 1.00 0.40 0.60 -Area of Debridement (cm) - Length 1.0 0.8 0.5 -Area of Debridement (cm) - Width 1.0 0.5 1.2 -Total Square (Area) (cm) 1.00 0.40 0.60 -Tunneling No No No -Undermining/Tunneling No No No -Circular Undermining No No No -Wound/Ulcer Outcome Not Healed Not Healed Not Healed -Ulcer Cleansing Rinsed/ Rinsed/ Rinsed/ Irrigated with Irrigated with Irrigated with Saline Saline Saline -Foul Odor after Cleansing No No No -Bioengineered Tissue No Yes Yes -Type of Bioengineered Tissue Epifix 18mm Epifix 18mm Disc Disc -Expiration Date 12/16/27 12/16/27 -Product Lot Number [id number] -Percent Used 100 100 -Lot number of Saline Used [id number] -Bleeding Controlled with Pressure Pressure Pressure -Treatment Response Procedure Procedure Procedure Tolerated Well Tolerated Well Tolerated Well -Offloading No No No -Debridement - Subq, 1st 20sq cm Yes No No -Apply Skin Sub - 1st 25 sq cm - Legs 1 1 -Epifix 18mm Disc 3 3 Pain Scale: 0-10 Numeric Is Patient Pain Free? Yes Yes Yes 06/07/23 11:11 Wound Center Nurse 2 #3 RT MED ANKLE -Time 11:11 -Correct Patient Yes -Correct Side, Site, Position Yes -Correct Procedure Yes -Procedure Performed Yes -Type of Procedure Debridement -Clinical Debridement Subcutaneous -Tissue Removed Subcutaneous -Post Debridement (cm) - Length 0.5 -Post Debridement (cm) - Width 1.1 -Post Debridement (cm) - Depth 0.3 -Total Square (Post) (cm) 0.55 -Area of Debridement (cm) - Length 0.5 -Area of Debridement (cm) - Width 1.1 -Total Square (Area) (cm) 0.55 -Tunneling No -Undermining/Tunneling No -Circular Undermining No -Wound/Ulcer Outcome Not Healed -Ulcer Cleansing Rinsed/ Irrigated with Saline -Foul Odor after Cleansing No -Bioengineered Tissue Yes -Type of Bioengineered Tissue Epifix 18mm Disc -Expiration Date 12/16/27 -Product Lot Number [id number] -Percent Used 100 -Lot number of Saline Used [id number] -Bleeding Controlled with Pressure -Treatment Response Procedure Tolerated Well -Offloading No -Debridement - Subq, 1st 20sq cm No -Apply Skin Sub - 1st 25 sq cm - Legs 1 -Epifix 18mm Disc 3 Pain Scale: 0-10 Numeric Is Patient Pain Free? Yes - Nurse 3 - General Ulcer D/C NN Start: 05/17/23 10:33 Freq: Status: Active Protocol: Activity Type Activity Date Activity User E-sign Co-sign Detail Recorded Client Recorded Date Recorded By Document 05/17/23 11:30 RB Desktop 05/17/23 11:34 RB Document 05/20/23 09:26 MT Desktop 05/20/23 09:42 MT Document 05/24/23 09:49 DL Desktop 05/24/23 09:51 DL Document 05/31/23 11:46 DL Desktop 05/31/23 11:47 DL 05/17/23 05/20/23 05/24/23 11:30 09:26 09:49 Wound Care Center Nurse 3 #3 RT MED ANKLE -Ulcer Cleansing Rinsed/ Soap and Water Not Cleansed Irrigated with Saline -Foul Odor after Cleansing No No -Negative Pressure Wound Therapy N/A -Primary Dressing Applied Aquacel AG 4x4 -Other Dressing aquacel ag Epifix -Primary Dressing Covered/Secured with Dry Gauze Dry Gauze, Dry Gauze Secured with Tape -Other Covering ABD -Aquacel AG 4x4 1 -Mepilex Border Right -Multi-Layered Wrap Application Multi-Layer Multi-Layer Multi-Layer Comp - Right ($ Comp - Right ($ Comp - Right ($ ) ) ) Treatment Response Procedure Procedure Tolerated Well Tolerated Well Vital Signs Temperature (97.8 F-99.1 F) 98 F Temperature Source Temporal Pulse Rate (60-100) 98 Pulse Location Monitor Respiratory Rate (12-18) 18 Respiratory rate source Observation Oxygen Delivery Method Room Air Blood Pressure (90/60-120/80) 173/68 H Blood Pressure Mean (mm Hg) 103 Source Monitor Position Sitting Blood Pressure Location Left Arm Pain Scale: 0-10 Numeric Is Patient Pain Free? Yes Yes Yes WC - Visit Discharge Discharge Condition Stable Stable Stable Ambulatory Status Ambulatory Ambulatory, Ambulatory, Walker Walker Transportation Private Auto Private Auto Private Auto Medication Reconcilliation completed & No No provided to patient/care provider Clinical Summary of Care Provided Yes Yes Notes: nurse visit Facility Type Home Health Orders Sent Yes 05/31/23 11:46 Wound Care Center Nurse 3 #3 RT MED ANKLE -Ulcer Cleansing Not Cleansed -Foul Odor after Cleansing No -Negative Pressure Wound Therapy -Primary Dressing Applied Mepilex Border -Other Dressing Epimesh -Primary Dressing Covered/Secured with -Other Covering -Aquacel AG 4x4 -Mepilex Border 1 Right -Multi-Layered Wrap Application Multi-Layer Comp - Right ($ ) Treatment Response Procedure Tolerated Well Vital Signs Temperature (97.8 F-99.1 F) Temperature Source Pulse Rate (60-100) Pulse Location Respiratory Rate (12-18) Respiratory rate source Oxygen Delivery Method Blood Pressure (90/60-120/80) Blood Pressure Mean (mm Hg) Source Position Blood Pressure Location Pain Scale: 0-10 Numeric Is Patient Pain Free? Yes WC - Visit Discharge Discharge Condition Stable Ambulatory Status Ambulatory, Walker Transportation Private Auto Medication Reconcilliation completed & provided to patient/care provider Clinical Summary of Care Provided Notes: Facility Type Home Health Orders Sent Yes Assessment/Plan Assessment/Plan (1) Non-pressure chronic ulcer of right ankle with fat layer exposed: CODE(S): L97.312 - Non-pressure chronic ulcer of right ankle with fat layer exposed PLAN: Exam performed Recent arterial studies within normal limits Patient has venous insufficiency with chronic venous venous leg ulceration right lower extremity Right lower extremity wound was excisionally debrided down to including level of subcutaneous tissue of all nonviable tissue using a throat 3 mm dermal curette. Patient tolerated procedure well. Topical anesthesia used. Pre and postdebridement measurements documented nursing notes. Hemostasis obtained with light compression. Today wound was 18 mm disc EpiFix graft. Entire graft used no waste. Graft was secured with overlying wound veil and Steri-Strips. Applied hydrogel DSD with compression. Patient will follow-up in 1 week for continued care. (2) Venous insufficiency (chronic) (peripheral): CODE(S): I87.2 - Venous insufficiency (chronic) (peripheral)
[2023-06-14 09:06] VITALS: BP 142/63; PULSE 86; TEMP 35.8
--- NOTE | 2023-06-14 10:12 | PN.PCM_ITS ---
History of Present Illness Date of Service: 06/14/23 Chief Complaint: Follow-up surgical wound dehiscence History of Wound: Patient has had this wound for several weeks and has noticed worsening with increased serous drainage. Patient denies any fever chills nausea vomiting chest pain calf pain shortness of breath.68-year-old female presents today with a venous leg ulceration to her right leg. Patient has no other complaints. Objective Data Objective Data Vital Signs: Vital Signs Temp Pulse Resp BP O2 Del Method 96.4 F L 86 18 142/63 H Room Air 06/14/23 09:06 06/14/23 09:06 06/07/23 10:46 06/14/23 09:06 06/07/23 10:46 Oxygen Delivery Method Room Air Weight: 108.409 kg Body Mass Index (BMI) 102.8 Physical Exam Narrative Vascular: Trophic changes to skin secondary to chronic venous insufficiency. Palpable dorsalis pedis and posterior tibial pulses, 2 out of 4 bilateral lower extremity. Atrophic changes noted to skin of the foot with skin thinning kind, shiny, taut appearance absent digital hair growth. Neurologic: Light touch protective sensation intact. No evidence of clonus or Babinski. Dermatologic: Full-thickness ulceration to the right medial ankle along course of great saphenous vein demonstrates a fibrogranular base. Pre and postdebridement measurements documented nursing notes. No deep probing or undermining. Some mild periwound erythema and warmth noted. No other signs of infection. Musculoskeletal: No pain with calf squeeze. No gross musculoskeletal deformity contributing to this wound formation. 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 Muscular strength is full to bilateral lower extremity compartments. Debridement Note Debridement Note Post-Debridement Measurements and Additional Note: Post-Debridement Measurements/Treatment WC - Nurse 1 - General Ulcer Assessment Start: 05/17/23 10:33 Freq: Status: Active Protocol: MIKE Activity Type Activity Date Activity User E-sign Co-sign Detail Recorded Client Recorded Date Recorded By Document 05/17/23 10:33 RB Desktop 05/17/23 10:46 RB Document 05/24/23 08:40 KW Desktop 05/24/23 08:45 KW Document 05/31/23 11:02 KW Desktop 05/31/23 11:12 KW Document 06/07/23 10:46 KW Desktop 06/07/23 10:54 KW Document 06/14/23 09:06 DS Desktop 06/14/23 09:15 DS 05/17/23 05/24/23 05/31/23 10:33 08:40 11:02 WC - Today's Visit Information Type of service Follow-up Visit Follow-up Visit Follow-up Visit (Physician/PLASTER MACHINE TENDER (Physician/PLASTER MACHINE TENDER (Physician/PLASTER MACHINE TENDER ) ) ) Arrival Mode Ambulatory Ambulatory, Ambulatory, Walker Walker Transfer Assistance None Patient Identification Verified (Name & Yes Yes Yes ) Patient Requires Transmission-Based No Precautions Safety Precautions Height and Weight Weight Weight in Pounds Weight Measurement Method Body Mass Index (BMI) 102.8 102.8 102.8 BMI Classification Obese Obese Obese Vital Signs Temperature (97.8 F-99.1 F) 97.3 F L 97.4 F L Temperature Source Temporal Temporal Pulse Rate (60-100) 92 95 83 Pulse Location Monitor Monitor Monitor Respiratory Rate (12-18) 18 18 18 Respiratory rate source Observation Observation Observation Oxygen Delivery Method Room Air Room Air Blood Pressure (90/60-120/80) 158/83 H 171/101 H 154/74 H Blood Pressure Mean (mm Hg) 108 124 100 Source Monitor Monitor Monitor Position Semi-Fowlers Sitting Semi-Fowlers Blood Pressure Location Left Arm Left Arm Left Forearm History Since Last Visit- (Skip if this is Patient's initial visit) Have you changed medications since your No No No last visit? Any new allergies or adverse reactions No No No Had a fall/change in ADL's that may No No No increase risk of falls Signs or symptoms of abuse and/or No No No neglect since last visit Have you been in the hospital since your No No No last visit? Has dressing in place as prescribed Yes Yes Yes Has compression in place as prescribed No Yes N/A Has offloadiing in place as prescribed Yes Yes Yes Experienced any changes in pain level or No No management Left Footwear Removable Cast Removable Cast Walker/Walking Walker/Walking Boot Boot Right Footwear Surgical Shoe Surgical Shoe with pressure with pressure relief insole relief insole Pain Scale: 0-10 Numeric Is Patient Pain Free? Yes Yes Yes 06/07/23 06/14/23 10:46 09:06 WC - Today's Visit Information Type of service Follow-up Visit Follow-up Visit (Physician/PLASTER MACHINE TENDER (Physician/PLASTER MACHINE TENDER ) ) Arrival Mode Ambulatory, Ambulatory, Walker Walker Transfer Assistance Patient Identification Verified (Name & Yes Yes ) Patient Requires Transmission-Based Precautions Safety Precautions NA Height and Weight Weight 108.409 kg Weight in Pounds 239.0 lbs Weight Measurement Method Estimated by Patient Body Mass Index (BMI) 102.8 BMI Classification Obese Vital Signs Temperature (97.8 F-99.1 F) 96.4 F L Temperature Source Temporal Pulse Rate (60-100) 76 86 Pulse Location Monitor Monitor Respiratory Rate (12-18) 18 Respiratory rate source Observation Oxygen Delivery Method Room Air Blood Pressure (90/60-120/80) 189/81 H 142/63 H Blood Pressure Mean (mm Hg) 117 89 Source Monitor Monitor Position Semi-Fowlers Semi-Fowlers Blood Pressure Location Right Arm Right Forearm History Since Last Visit- (Skip if this is Patient's initial visit) Have you changed medications since your No No last visit? Any new allergies or adverse reactions No No Had a fall/change in ADL's that may No No increase risk of falls Signs or symptoms of abuse and/or No No neglect since last visit Have you been in the hospital since your No No last visit? Has dressing in place as prescribed Yes Yes Has compression in place as prescribed Yes Yes Has offloadiing in place as prescribed Yes No Experienced any changes in pain level or No No management Left Footwear Removable Cast Multipodus Walker/Walking Splint/Boot Boot Right Footwear Surgical Shoe Surgical Shoe with pressure with pressure relief insole relief insole Pain Scale: 0-10 Numeric Is Patient Pain Free? Yes Yes WC - Nurse 1 - General Ulcer Measurement Start: 05/17/23 10:33 Freq: Status: Active Protocol: Activity Type Activity Date Activity User E-sign Co-sign Detail Recorded Client Recorded Date Recorded By Document 05/17/23 10:33 RB Desktop 05/17/23 10:46 RB Document 05/24/23 08:40 KW Desktop 05/24/23 08:45 KW Document 05/31/23 11:02 KW Desktop 05/31/23 11:12 KW Document 06/07/23 10:46 KW Desktop 06/07/23 10:54 KW Document 06/14/23 09:06 DS Desktop 06/14/23 09:15 DS 05/17/23 05/24/23 05/31/23 10:33 08:40 11:02 Wound Center Nurse 1 #3 RT MED ANKLE -Combined with other wound No No -Current Size (cm) - Length 1 0.8 1.1 -Current Size (cm) - Width 1.1 0.4 0.5 -Current Size (cm) - Depth 0.2 0.2 0.1 -Total Square Cm 1.1 0.32 0.55 -Date of Last Picture (Recall this 05/24/23 field) -Photo Taken Yes Yes -Tunneling No No -Undermining/Tunneling No No -Circular Undermining No No -Exudate Amt Medium Medium Medium -Exudate Type Serosanguineous Serosanguineous Serosanguineous -Wound Margin Distinct, Distinct, Distinct, Outline Outline Outline Attached Attached Attached -Granulation Amt Medium (34-66%) Medium (34-66%) -Granulation Quality [place] -Slough/Fibrin Yes Yes -Necrosis Amt Medium (34-66%) Large (67-100%) Medium (34-66%) -Necrotic Tissue Type Adherent Slough Adherent Slough Adherent Slough -Structure Exposed N/A N/A -Texture (Jagruti-wound Skin Appearance) Assessed Assessed Scarring -Moisture (Jagruti-wound Skin Appearance) Maceration Assessed Assessed -Color (Jagruti-wound Skin Appearance) Assessed Assessed Assessed -Temperature (Jagruti-wound Skin No Abnormality No Abnormality No Abnormality Appearance) (Pt Warm) (Pt Warm) (Pt Warm) -Tenderness on Palpation (Jagruti-wound No No Skin Appearance) -Ulcer Cleansing Wound Cleanser Soap and Water Wound Cleanser -Foul Odor after Cleansing No No -Anesthetic Used 5% Lidocaine 5% Lidocaine 5% Lidocaine Gel Gel Gel Lower Limb Edema Present Yes Yes Right Calf (cm) 37.5 34.5 Right Ankle (cm) 22.3 21.4 Left Calf (cm) 36 Left Ankle (cm) 21 06/07/23 06/14/23 10:46 09:06 Wound Center Nurse 1 #3 RT MED ANKLE -Combined with other wound No -Current Size (cm) - Length 0.9 0.3 -Current Size (cm) - Width 0.5 0.5 -Current Size (cm) - Depth 0.3 0.2 -Total Square Cm 0.45 0.15 -Date of Last Picture (Recall this field) -Photo Taken No -Tunneling No -Undermining/Tunneling No -Circular Undermining No -Exudate Amt Small Medium -Exudate Type Serosanguineous Serosanguineous -Wound Margin Distinct, Distinct, Outline Outline Attached Attached -Granulation Amt Medium (34-66%) Medium (34-66%) -Granulation Quality [place],Red -Slough/Fibrin Yes -Necrosis Amt Medium (34-66%) Medium (34-66%) -Necrotic Tissue Type Adherent Slough Adherent Slough -Structure Exposed -Texture (Jagruti-wound Skin Appearance) Assessed, Assessed Localized Edema -Moisture (Jagruti-wound Skin Appearance) Assessed Assessed -Color (Jagruti-wound Skin Appearance) Assessed Assessed, Erythema -Temperature (Jagruti-wound Skin No Abnormality No Abnormality Appearance) (Pt Warm) (Pt Warm) -Tenderness on Palpation (Jagruti-wound Yes Yes Skin Appearance) -Ulcer Cleansing Soap and Water Soap and Water -Foul Odor after Cleansing No -Anesthetic Used 5% Lidocaine 5% Lidocaine Gel Gel Lower Limb Edema Present Right Calf (cm) 34.5 34.2 Right Ankle (cm) 21.2 21 Left Calf (cm) Left Ankle (cm) WC - Nurse 2 - General Ulcer CM Notes Start: 05/17/23 10:33 Freq: Status: Active Protocol: Activity Type Activity Date Activity User E-sign Co-sign Detail Recorded Client Recorded Date Recorded By Document 05/17/23 11:05 Laptop 05/17/23 11:12 Document 05/24/23 09:37 Laptop 05/24/23 09:39 Document 05/31/23 11:21 Laptop 05/31/23 11:27 Document 06/07/23 11:11 Laptop 06/07/23 11:13 Document 06/14/23 09:28 Laptop 06/14/23 09:30 05/17/23 05/24/23 05/31/23 11:05 09:37 11:21 Wound Center Nurse 2 #3 RT MED ANKLE -Time 11:09 09:38 11:21 -Correct Patient Yes Yes Yes -Correct Side, Site, Position Yes Yes Yes -Correct Procedure Yes Yes Yes -Procedure Performed Yes Yes Yes -Type of Procedure Debridement Debridement Debridement -Clinical Debridement Subcutaneous Subcutaneous Subcutaneous -Tissue Removed Subcutaneous Subcutaneous Subcutaneous -Post Debridement (cm) - Length 1.0 0.8 0.5 -Post Debridement (cm) - Width 1.0 0.5 1.2 -Post Debridement (cm) - Depth 0.1 0.1 0.2 -Total Square (Post) (cm) 1.00 0.40 0.60 -Area of Debridement (cm) - Length 1.0 0.8 0.5 -Area of Debridement (cm) - Width 1.0 0.5 1.2 -Total Square (Area) (cm) 1.00 0.40 0.60 -Tunneling No No No -Undermining/Tunneling No No No -Circular Undermining No No No -Wound/Ulcer Outcome Not Healed Not Healed Not Healed -Ulcer Cleansing Rinsed/ Rinsed/ Rinsed/ Irrigated with Irrigated with Irrigated with Saline Saline Saline -Foul Odor after Cleansing No No No -Bioengineered Tissue No Yes Yes -Type of Bioengineered Tissue Epifix 18mm Epifix 18mm Disc Disc -Expiration Date 12/16/27 12/16/27 -Product Lot Number [id number] -Percent Used 100 100 -Lot number of Saline Used [id number] -Bleeding Controlled with Pressure Pressure Pressure -Treatment Response Procedure Procedure Procedure Tolerated Well Tolerated Well Tolerated Well -Offloading No No No -Debridement - Subq, 1st 20sq cm Yes No No -Apply Skin Sub - 1st 25 sq cm - Legs 1 1 -Epifix 18mm Disc 3 3 Pain Scale: 0-10 Numeric Is Patient Pain Free? Yes Yes Yes 06/07/23 06/14/23 11:11 09:28 Wound Center Nurse 2 #3 RT MED ANKLE -Time 11: 09:28 -Correct Patient Yes Yes -Correct Side, Site, Position Yes Yes -Correct Procedure Yes Yes -Procedure Performed Yes Yes -Type of Procedure Debridement Debridement -Clinical Debridement Subcutaneous Subcutaneous -Tissue Removed Subcutaneous Subcutaneous -Post Debridement (cm) - Length 0.5 0.5 -Post Debridement (cm) - Width 1.1 1.0 -Post Debridement (cm) - Depth 0.3 0.1 -Total Square (Post) (cm) 0.55 0.50 -Area of Debridement (cm) - Length 0.5 0.5 -Area of Debridement (cm) - Width 1.1 1.0 -Total Square (Area) (cm) 0.55 0.50 -Tunneling No No -Undermining/Tunneling No No -Circular Undermining No No -Wound/Ulcer Outcome Not Healed Not Healed -Ulcer Cleansing Rinsed/ Rinsed/ Irrigated with Irrigated with Saline Saline -Foul Odor after Cleansing No No -Bioengineered Tissue Yes Yes -Type of Bioengineered Tissue Epifix 18mm Epifix 18mm Disc Disc -Expiration Date 12/16/27 12/16/27 -Product Lot Number [id number] -Percent Used 100 100 -Lot number of Saline Used [id number] -Bleeding Controlled with Pressure Pressure -Treatment Response Procedure Procedure Tolerated Well Tolerated Well -Offloading No No -Debridement - Subq, 1st 20sq cm No No -Apply Skin Sub - 1st 25 sq cm - Legs 1 1 -Epifix 18mm Disc 3 3 Pain Scale: 0-10 Numeric Is Patient Pain Free? Yes Yes - Nurse 3 - General Ulcer D/C NN Start: 05/17/23 10:33 Freq: Status: Active Protocol: Activity Type Activity Date Activity User E-sign Co-sign Detail Recorded Client Recorded Date Recorded By Document 05/17/23 11:30 RB Desktop 05/17/23 11:34 RB Document 05/20/23 09:26 MT Desktop 05/20/23 09:42 MT Document 05/24/23 09:49 DL Desktop 05/24/23 09:51 DL Document 05/31/23 11:46 DL Desktop 05/31/23 11:47 DL Document 06/07/23 11:29 RB Desktop 06/07/23 11:29 RB Document 06/14/23 09:35 KW Desktop 06/14/23 09:35 KW 05/17/23 05/20/23 05/24/23 11:30 09:26 09:49 Wound Care Center Nurse 3 #3 RT MED ANKLE -Ulcer Cleansing Rinsed/ Soap and Water Not Cleansed Irrigated with Saline -Foul Odor after Cleansing No No -Negative Pressure Wound Therapy N/A -Primary Dressing Applied Aquacel AG 4x4 -Other Dressing aquacel ag Epifix -Primary Dressing Covered/Secured with Dry Gauze Dry Gauze, Dry Gauze Secured with Tape -Other Covering ABD -Aquacel AG 4x4 1 -Mepilex Border Right -Multi-Layered Wrap Application Multi-Layer Multi-Layer Multi-Layer Comp - Right ($ Comp - Right ($ Comp - Right ($ ) ) ) Treatment Response Procedure Procedure Tolerated Well Tolerated Well Vital Signs Temperature (97.8 F-99.1 F) 98 F Temperature Source Temporal Pulse Rate (60-100) 98 Pulse Location Monitor Respiratory Rate (12-18) 18 Respiratory rate source Observation Oxygen Delivery Method Room Air Blood Pressure (90/60-120/80) 173/68 H Blood Pressure Mean (mm Hg) 103 Source Monitor Position Sitting Blood Pressure Location Left Arm Pain Scale: 0-10 Numeric Is Patient Pain Free? Yes Yes Yes WC - Visit Discharge Discharge Condition Stable Stable Stable Ambulatory Status Ambulatory Ambulatory, Ambulatory, Walker Walker Transportation Private Auto Private Auto Private Auto Medication Reconcilliation completed & No No provided to patient/care provider Clinical Summary of Care Provided Yes Yes Notes: nurse visit Facility Type Home Health Orders Sent Yes 05/31/23 06/07/23 06/14/23 11:46 11:29 09:35 Wound Care Center Nurse 3 #3 RT MED ANKLE -Ulcer Cleansing Not Cleansed -Foul Odor after Cleansing No -Negative Pressure Wound Therapy -Primary Dressing Applied Mepilex Border Mepilex Border Mepilex Border -Other Dressing Epimesh -Primary Dressing Covered/Secured with -Other Covering -Aquacel AG 4x4 -Mepilex Border 1 1 1 Right -Multi-Layered Wrap Application Multi-Layer Multi-Layer Multi-Layer Comp - Right ($ Comp - Right ($ Comp - Right ($ ) ) ) Treatment Response Procedure Tolerated Well Vital Signs Temperature (97.8 F-99.1 F) Temperature Source Pulse Rate (60-100) Pulse Location Respiratory Rate (12-18) Respiratory rate source Oxygen Delivery Method Blood Pressure (90/60-120/80) Blood Pressure Mean (mm Hg) Source Position Blood Pressure Location Pain Scale: 0-10 Numeric Is Patient Pain Free? Yes Yes Yes WC - Visit Discharge Discharge Condition Stable Stable Stable Ambulatory Status Ambulatory, Ambulatory, Ambulatory, Walker Walker Walker Transportation Private Auto Private Auto Private Auto Medication Reconcilliation completed & No No provided to patient/care provider Clinical Summary of Care Provided Yes Yes Notes: Facility Type Home Health Orders Sent Yes Assessment/Plan Assessment/Plan (1) Non-pressure chronic ulcer of right ankle with fat layer exposed: CODE(S): L97.312 - Non-pressure chronic ulcer of right ankle with fat layer exposed PLAN: Exam performed Recent arterial studies within normal limits Patient has venous insufficiency with chronic venous venous leg ulceration right lower extremity Right lower extremity wound was excisionally debrided down to including level of subcutaneous tissue of all nonviable tissue using a throat 3 mm dermal curette. Patient tolerated procedure well. Topical anesthesia used. Pre and postdebridement measurements documented nursing notes. Hemostasis obtained with light compression. Today wound was 18 mm disc EpiFix graft. Entire graft used no waste. Graft was secured with overlying wound veil and Steri-Strips. Applied hydrogel DSD with compression. Patient will follow-up in 1 week for continued care. (2) Venous insufficiency (chronic) (peripheral): CODE(S): I87.2 - Venous insufficiency (chronic) (peripheral)
== END 2023-06-14 23:59 | disposition home or self-care (01) ==
LOC: WC 09:30
PROVIDERS: PCP Family Medicine; Referring Provider Podiatrist; Visit Provider Podiatrist
DX: L97.312 Non-pressure chronic ulcer of right ankle with fat layer exposed (principal); I87.2 Venous insufficiency (chronic) (peripheral)
CPT/HCPCS: 11042; 15271; 29581; Q4186

== ENCOUNTER → 2023-06-29 | Outpatient (CLI) | payer MEDICARE, OTHER, SELFPAY | END | disposition home or self-care (01) | LOC: LABSPEC 12:04 | PROVIDERS: PCP Family Medicine; Referring Provider Family Medicine; Visit Provider Family Medicine | DX: R05.9 Cough, unspecified (principal) | CPT/HCPCS: 87070; 87077; 87186; 87205 ==

== ENCOUNTER 2023-07-12 10:45 | Outpatient (RCR) | payer MEDICARE, OTHER, SELFPAY ==
[2023-06-15 00:52] VITALS: BP 142/63; PULSE 86; RESP 18; TEMP 35.8; BMI 102.8
[2023-06-21 10:22] VITALS: BP 132/46; PULSE 80; RESP 18; TEMP 36.4; BMI 102.8
--- NOTE | 2023-06-21 10:54 | PN.PCM_ITS ---
History of Present Illness Date of Service: 06/21/23 Chief Complaint: Follow-up surgical wound dehiscence History of Wound: Patient has had this wound for several weeks and has noticed worsening with increased serous drainage. Patient denies any fever chills nausea vomiting chest pain calf pain shortness of breath.68-year-old female presents today with a venous leg ulceration to her right leg. Patient has no other complaints. Objective Data Objective Data Vital Signs: Vital Signs Temp Pulse Resp BP 97.6 F L 80 18 132/46 H 06/21/23 10:22 06/21/23 10:06/21/23 10:06/21/23 10:22 Weight: 108.409 kg Body Mass Index (BMI) 102.8 Physical Exam Narrative Vascular: Trophic changes to skin secondary to chronic venous insufficiency. Palpable dorsalis pedis and posterior tibial pulses, 2 out of 4 bilateral lower extremity. Atrophic changes noted to skin of the foot with skin thinning kind, shiny, taut appearance absent digital hair growth. Neurologic: Light touch protective sensation intact. No evidence of clonus or Babinski. Dermatologic: Full-thickness ulceration to the right medial ankle along course of great saphenous vein demonstrates a fibrogranular base. Pre and postdebridement measurements documented nursing notes. No deep probing or undermining. Some mild periwound erythema and warmth noted. No other signs of infection. Musculoskeletal: No pain with calf squeeze. No gross musculoskeletal deformity contributing to this wound formation. 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 Muscular strength is full to bilateral lower extremity compartments. Debridement Note Debridement Note Post-Debridement Measurements and Additional Note: Post-Debridement Measurements/Treatment - Nurse 1 - General Ulcer Assessment Start: 06/21/23 10:22 Freq: Status: Active Protocol: [email or web address] Activity Type Activity Date Activity User E-sign Co-sign Detail Recorded Client Recorded Date Recorded By Document 06/21/23 10:22 Desktop 06/21/23 10:24 RB 06/21/23 10:22 - Today's Visit Information Type of service Follow-up Visit (Physician/STRATEGIC DEVELOPMENT MANAGER ) Arrival Mode Ambulatory, Walker Transfer Assistance None Patient Identification Verified (Name & Yes ) Patient Requires Transmission-Based No Precautions Height and Weight Body Mass Index (BMI) 102.8 BMI Classification Obese Vital Signs Temperature (97.8 F-99.1 F) 97.6 F L Temperature Source Temporal Pulse Rate (60-100) 80 Pulse Location Monitor Respiratory Rate (12-18) 18 Respiratory rate source Observation Blood Pressure (90/60-120/80) 132/46 H Blood Pressure Mean (mm Hg) 74 Source Monitor Position Semi-Fowlers Blood Pressure Location Left Arm History Since Last Visit- (Skip if this is Patient's initial visit) Have you changed medications since your No last visit? Any new allergies or adverse reactions No Had a fall/change in ADL's that may No increase risk of falls Signs or symptoms of abuse and/or No neglect since last visit Have you been in the hospital since your No last visit? Has dressing in place as prescribed Yes Has compression in place as prescribed Yes Has offloadiing in place as prescribed No Experienced any changes in pain level or No management Pain Scale: 0-10 Numeric Is Patient Pain Free? Yes WC - Nurse 1 - General Ulcer Measurement Start: 06/21/23 10:22 Freq: Status: Active Protocol: Activity Type Activity Date Activity User E-sign Co-sign Detail Recorded Client Recorded Date Recorded By Document 06/21/23 10:22 RB Desktop 06/21/23 10:24 RB 06/21/23 10:22 Wound Center Nurse 1 #3 RT MED ANKLE -Combined with other wound No -Current Size (cm) - Length 0.8 -Current Size (cm) - Width 0.5 -Current Size (cm) - Depth 0.2 -Total Square Cm 0.40 -Tunneling No -Undermining/Tunneling No -Circular Undermining No -Exudate Amt Medium -Exudate Type Serosanguineous -Wound Margin Thickened & Rolled Under -Granulation Amt Medium (34-66%) -Granulation Quality [place] -Slough/Fibrin Yes -Necrosis Amt Medium (34-66%) -Necrotic Tissue Type Adherent Slough -Structure Exposed N/A -Texture (Jagruti-wound Skin Appearance) Assessed -Moisture (Jagruti-wound Skin Appearance) Assessed,Dry/ Scaly -Color (Jagruti-wound Skin Appearance) Assessed -Temperature (Jagruti-wound Skin No Abnormality Appearance) (Pt Warm) -Tenderness on Palpation (Jagruti-wound No Skin Appearance) -Ulcer Cleansing Wound Cleanser -Foul Odor after Cleansing No -Anesthetic Used 5% Lidocaine Gel Lower Limb Edema Present Yes Right Calf (cm) 33.6 Right Ankle (cm) 20.6 WC - Nurse 2 - General Ulcer CM Notes Start: 06/21/23 10:22 Freq: Status: Active Protocol: Activity Type Activity Date Activity User E-sign Co-sign Detail Recorded Client Recorded Date Recorded By Document 06/21/23 10:50 Laptop 06/21/23 10:52 06/21/23 10:50 Wound Center Nurse 2 #3 RT MED ANKLE -Time 10:50 -Correct Patient Yes -Correct Side, Site, Position Yes -Correct Procedure Yes -Procedure Performed Yes -Type of Procedure Debridement -Clinical Debridement Subcutaneous -Tissue Removed Subcutaneous -Post Debridement (cm) - Length 1 -Post Debridement (cm) - Width 0.3 -Post Debridement (cm) - Depth 0.4 -Total Square (Post) (cm) 0.3 -Area of Debridement (cm) - Length 1.0 -Area of Debridement (cm) - Width 0.3 -Total Square (Area) (cm) 0.30 -Tunneling No -Undermining/Tunneling No -Circular Undermining No -Wound/Ulcer Outcome Not Healed -Ulcer Cleansing Rinsed/ Irrigated with Saline -Foul Odor after Cleansing No -Bioengineered Tissue Yes -Type of Bioengineered Tissue Epifix 18mm Disc -Expiration Date 01/15/28 -Product Lot Number [id number] -Percent Used 100 -Lot number of Saline Used [id number] -Bleeding Controlled with Pressure -Treatment Response Procedure Tolerated Well -Offloading No -Debridement - Subq, 1st 20sq cm No -Apply Skin Sub - 1st 25 sq cm - Legs 1 -Epifix 18mm Disc 3 Pain Scale: 0-10 Numeric Is Patient Pain Free? Yes Assessment/Plan Assessment/Plan (1) Non-pressure chronic ulcer of right ankle with fat layer exposed: CODE(S): L97.312 - Non-pressure chronic ulcer of right ankle with fat layer exposed PLAN: Exam performed Recent arterial studies within normal limits Patient has venous insufficiency with chronic venous venous leg ulceration right lower extremity Right lower extremity wound was excisionally debrided down to including level of subcutaneous tissue of all nonviable tissue using a throat 3 mm dermal curette. Patient tolerated procedure well. Topical anesthesia used. Pre and postdebridement measurements documented nursing notes. Hemostasis obtained with light compression. Today wound was 18 mm disc EpiFix graft. Entire graft used no waste. Graft was secured with overlying wound veil and Steri-Strips. Applied hydrogel DSD with compression. Patient will follow-up in 1 week for continued care. (2) Venous insufficiency (chronic) (peripheral): CODE(S): I87.2 - Venous insufficiency (chronic) (peripheral)
[2023-06-28 10:24] VITALS: BP 152/87; PULSE 87; RESP 18; TEMP 36.4; BMI 102.8
--- NOTE | 2023-06-28 11:25 | PN.PCM_ITS ---
History of Present Illness Date of Service: 06/28/23 Chief Complaint: Follow-up surgical wound dehiscence History of Wound: Patient has had this wound for several weeks and has noticed worsening with increased serous drainage. Patient denies any fever chills nausea vomiting chest pain calf pain shortness of breath.68-year-old female presents today with a venous leg ulceration to her right leg. Patient has no other complaints. Objective Data Objective Data Vital Signs: Vital Signs Temp Pulse Resp BP 97.5 F L 87 18 152/87 H 06/28/23 10:24 06/28/23 10:24 06/28/23 10:24 06/28/23 10:24 Weight: 108.409 kg Body Mass Index (BMI) 102.8 Physical Exam Narrative Vascular: Trophic changes to skin secondary to chronic venous insufficiency. Palpable dorsalis pedis and posterior tibial pulses, 2 out of 4 bilateral lower extremity. Atrophic changes noted to skin of the foot with skin thinning kind, shiny, taut appearance absent digital hair growth. Neurologic: Light touch protective sensation intact. No evidence of clonus or Babinski. Dermatologic: Full-thickness ulceration to the right medial ankle along course of great saphenous vein demonstrates a fibrogranular base. Pre and postdebridement measurements documented nursing notes. No deep probing or undermining. Some mild periwound erythema and warmth noted. No other signs of infection. Musculoskeletal: No pain with calf squeeze. No gross musculoskeletal deformity contributing to this wound formation. 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 Muscular strength is full to bilateral lower extremity compartments. Debridement Note Debridement Note Post-Debridement Measurements and Additional Note: Post-Debridement Measurements/Treatment - Nurse 1 - General Ulcer Assessment Start: 06/21/23 10:22 Freq: Status: Active Protocol: [email or web address] Activity Type Activity Date Activity User E-sign Co-sign Detail Recorded Client Recorded Date Recorded By Document 06/21/23 10:22 RB Desktop 06/21/23 10:24 RB Document 06/28/23 10:24 RB [id number] 06/28/23 10:26 RB 06/21/23 06/28/23 10:22 10:24 - Today's Visit Information Type of service Follow-up Visit Follow-up Visit (Physician/[employer] ST[employer] JAVA DEVELOPER (Physician/[employer] JAVA DEVELOPER ) ) Arrival Mode Ambulatory, Ambulatory, Walker Walker Transfer Assistance None None Patient Identification Verified (Name & Yes Yes ) Patient Requires Transmission-Based No No Precautions Height and Weight Body Mass Index (BMI) 102.8 102.8 BMI Classification Obese Obese Vital Signs Temperature (97.8 F-99.1 F) 97.6 F L 97.5 F L Temperature Source Temporal Temporal Pulse Rate (60-100) 80 87 Pulse Location Monitor Monitor Respiratory Rate (12-18) 18 18 Respiratory rate source Observation Observation Blood Pressure (90/60-120/80) 132/46 H 152/87 H Blood Pressure Mean (mm Hg) 74 108 Source Monitor Monitor Position Semi-Fowlers Semi-Fowlers Blood Pressure Location Left Arm Left Arm History Since Last Visit- (Skip if this is Patient's initial visit) Have you changed medications since your No No last visit? Any new allergies or adverse reactions No No Had a fall/change in ADL's that may No No increase risk of falls Signs or symptoms of abuse and/or No No neglect since last visit Have you been in the hospital since your No No last visit? Has dressing in place as prescribed Yes Yes Has compression in place as prescribed Yes Yes Has offloadiing in place as prescribed No No Experienced any changes in pain level or No No management Pain Scale: 0-10 Numeric Is Patient Pain Free? Yes Yes WC - Nurse 1 - General Ulcer Measurement Start: 06/21/23 10:22 Freq: Status: Active Protocol: Activity Type Activity Date Activity User E-sign Co-sign Detail Recorded Client Recorded Date Recorded By Document 06/21/23 10:22 RB Desktop 06/21/23 10:24 RB Document 06/28/23 10:24 [id number] 06/28/23 10:26 RB 06/21/23 06/28/23 10:22 10:24 Wound Center Nurse 1 #3 RT MED ANKLE -Combined with other wound No No -Current Size (cm) - Length 0.8 1 -Current Size (cm) - Width 0.5 0.5 -Current Size (cm) - Depth 0.2 0.3 -Total Square Cm 0.40 0.5 -Tunneling No No -Undermining/Tunneling No No -Circular Undermining No No -Exudate Amt Medium Medium -Exudate Type Serosanguineous Serosanguineous -Wound Margin Thickened & Distinct, Rolled Under Outline Attached -Granulation Amt Medium (34-66%) Medium (34-66%) -Granulation Quality [place] -Slough/Fibrin Yes Yes -Necrosis Amt Medium (34-66%) Medium (34-66%) -Necrotic Tissue Type Adherent Slough Adherent Slough -Structure Exposed N/A N/A -Texture (Jagruti-wound Skin Appearance) Assessed Assessed -Moisture (Jagruti-wound Skin Appearance) Assessed,Dry/ Assessed Scaly -Color (Jagruti-wound Skin Appearance) Assessed Assessed, Hemosiderin Staining -Temperature (Jagruti-wound Skin No Abnormality No Abnormality Appearance) (Pt Warm) (Pt Warm) -Tenderness on Palpation (Jagruti-wound No No Skin Appearance) -Ulcer Cleansing Wound Cleanser Wound Cleanser -Foul Odor after Cleansing No No -Anesthetic Used 5% Lidocaine 5% Lidocaine Gel Gel Lower Limb Edema Present Yes Yes Right Calf (cm) 33.6 32.2 Right Ankle (cm) 20.6 21 WC - Nurse 2 - General Ulcer CM Notes Start: 06/21/23 10:22 Freq: Status: Active Protocol: Activity Type Activity Date Activity User E-sign Co-sign Detail Recorded Client Recorded Date Recorded By Document 06/21/23 10:50 Laptop 06/21/23 10:52 Document 06/28/23 10:32 [place] [id number] 06/28/23 10:33 DS 06/21/23 06/28/23 10:50 10:32 Wound Center Nurse 2 #3 RT MED ANKLE -Time 10:50 10:32 -Correct Patient Yes Yes -Correct Side, Site, Position Yes Yes -Correct Procedure Yes Yes -Procedure Performed Yes Yes -Type of Procedure Debridement Debridement -Clinical Debridement Subcutaneous Subcutaneous -Tissue Removed Subcutaneous Subcutaneous -Post Debridement (cm) - Length 1 1.0 -Post Debridement (cm) - Width 0.3 0.6 -Post Debridement (cm) - Depth 0.4 0.4 -Total Square (Post) (cm) 0.3 0.60 -Area of Debridement (cm) - Length 1.0 1.0 -Area of Debridement (cm) - Width 0.3 0.6 -Total Square (Area) (cm) 0.30 0.60 -Tunneling No No -Undermining/Tunneling No No -Circular Undermining No No -Wound/Ulcer Outcome Not Healed Not Healed -Ulcer Cleansing Rinsed/ Rinsed/ Irrigated with Irrigated with Saline Saline -Foul Odor after Cleansing No -Bioengineered Tissue Yes -Type of Bioengineered Tissue Epifix 18mm Disc -Expiration Date 01/15/28 -Product Lot Number [id number] -Percent Used 100 -Lot number of Saline Used [id number] -Bleeding Controlled with Pressure Pressure -Treatment Response Procedure Procedure Tolerated Well Tolerated Well -Offloading No -Debridement - Subq, 1st 20sq cm No Yes -Apply Skin Sub - 1st 25 sq cm - Legs 1 -Epifix 18mm Disc 3 Pain Scale: 0-10 Numeric Is Patient Pain Free? Yes Yes - Nurse 3 - General Ulcer D/C NN Start: 06/21/23 10:22 Freq: Status: Active Protocol: Activity Type Activity Date Activity User E-sign Co-sign Detail Recorded Client Recorded Date Recorded By Document 06/21/23 10:56 RB Desktop 06/21/23 10:59 RB 06/21/23 10:56 Wound Care Center Nurse 3 #3 RT MED ANKLE -Other Dressing abd -Wound Comment(s) padded anterior ankle and achilles with abd pad Jagruti-Wound Care Lotion Right -Multi-Layered Wrap Application Multi-Layer Comp - Right ($ ) Pain Scale: 0-10 Numeric Is Patient Pain Free? Yes WC - Visit Discharge Discharge Condition Stable Ambulatory Status Ambulatory, Walker Transportation Private Auto Medication Reconcilliation completed & No provided to patient/care provider Clinical Summary of Care Provided Yes Notes: dressing 3M applied per Della Acosta LPN Assessment/Plan Assessment/Plan (1) Non-pressure chronic ulcer of right ankle with fat layer exposed: CODE(S): L97.312 - Non-pressure chronic ulcer of right ankle with fat layer exposed PLAN: Exam performed Recent arterial studies within normal limits Patient has venous insufficiency with chronic venous venous leg ulceration right lower extremity Right lower extremity wound was excisionally debrided down to including level of subcutaneous tissue of all nonviable tissue using a throat 3 mm dermal curette. Patient tolerated procedure well. Topical anesthesia used. Pre and postdebridement measurements documented nursing notes. Hemostasis obtained with light compression. will transition to daily santyl, periwound triamcinolone with DSD and tubigrip Patient will follow-up in 1 week for continued care. (2) Venous insufficiency (chronic) (peripheral): CODE(S): I87.2 - Venous insufficiency (chronic) (peripheral)
--- NOTE | 2023-07-12 11:05 | PCM.WC.PN ---
History of Present Illness Date of Service: 07/12/23 Chief Complaint: Follow-up surgical wound dehiscence History of Wound: Patient has had this wound for several weeks and has noticed worsening with increased serous drainage. Patient denies any fever chills nausea vomiting chest pain calf pain shortness of breath.68-year-old female presents today with a venous leg ulceration to her right leg. Patient has no other complaints. Objective Data Objective Data Vital Signs: Vital Signs Temp Pulse Resp BP 97.5 F L 87 18 152/87 H 06/28/23 10:24 06/28/23 10:24 06/28/23 10:24 06/28/23 10:24 Weight: 108.409 kg Body Mass Index (BMI) 102.8 Physical Exam Narrative Vascular: Trophic changes to skin secondary to chronic venous insufficiency. Palpable dorsalis pedis and posterior tibial pulses, 2 out of 4 bilateral lower extremity. Atrophic changes noted to skin of the foot with skin thinning kind, shiny, taut appearance absent digital hair growth. Neurologic: Light touch protective sensation intact. No evidence of clonus or Babinski. Dermatologic: Full-thickness ulceration to the right medial ankle along course of great saphenous vein demonstrates a fibrogranular base. Pre and postdebridement measurements documented nursing notes. No deep probing or undermining. Some mild periwound erythema and warmth noted. No other signs of infection. Musculoskeletal: No pain with calf squeeze. No gross musculoskeletal deformity contributing to this wound formation. 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 Muscular strength is full to bilateral lower extremity compartments. Debridement Note Debridement Note Post-Debridement Measurements and Additional Note: Post-Debridement Measurements/Treatment - Nurse 1 - General Ulcer Assessment Start: 06/21/23 10:22 Freq: Status: Active Protocol: [email or web address].MARY Activity Type Activity Date Activity User E-sign Co-sign Detail Recorded Client Recorded Date Recorded By Document 06/21/23 10:22 RB Desktop 06/21/23 10:24 RB Document 06/28/23 10:24 RB [id number] 06/28/23 10:26 RB 06/21/23 06/28/23 10:22 10:24 - Today's Visit Information Type of service Follow-up Visit Follow-up Visit (Physician/BRICK BURNER (Physician/BRICK BURNER ) ) Arrival Mode Ambulatory, Ambulatory, Walker Walker Transfer Assistance None None Patient Identification Verified (Name & Yes Yes ) Patient Requires Transmission-Based No No Precautions Height and Weight Body Mass Index (BMI) 102.8 102.8 BMI Classification Obese Obese Vital Signs Temperature (97.8 F-99.1 F) 97.6 F L 97.5 F L Temperature Source Temporal Temporal Pulse Rate (60-100) 80 87 Pulse Location Monitor Monitor Respiratory Rate (12-18) 18 18 Respiratory rate source Observation Observation Blood Pressure (90/60-120/80) 132/46 H 152/87 H Blood Pressure Mean (mm Hg) 74 108 Source Monitor Monitor Position Semi-Fowlers Semi-Fowlers Blood Pressure Location Left Arm Left Arm History Since Last Visit- (Skip if this is Patient's initial visit) Have you changed medications since your No No last visit? Any new allergies or adverse reactions No No Had a fall/change in ADL's that may No No increase risk of falls Signs or symptoms of abuse and/or No No neglect since last visit Have you been in the hospital since your No No last visit? Has dressing in place as prescribed Yes Yes Has compression in place as prescribed Yes Yes Has offloadiing in place as prescribed No No Experienced any changes in pain level or No No management Pain Scale: 0-10 Numeric Is Patient Pain Free? Yes Yes WC - Nurse 1 - General Ulcer Measurement Start: 06/21/23 10:22 Freq: Status: Active Protocol: Activity Type Activity Date Activity User E-sign Co-sign Detail Recorded Client Recorded Date Recorded By Document 06/21/23 10:22 RB Desktop 06/21/23 10:24 RB Document 06/28/23 10:24 [id number] 06/28/23 10:26 RB 06/21/23 06/28/23 10:22 10:24 Wound Center Nurse 1 #3 RT MED ANKLE -Combined with other wound No No -Current Size (cm) - Length 0.8 1 -Current Size (cm) - Width 0.5 0.5 -Current Size (cm) - Depth 0.2 0.3 -Total Square Cm 0.40 0.5 -Tunneling No No -Undermining/Tunneling No No -Circular Undermining No No -Exudate Amt Medium Medium -Exudate Type Serosanguineous Serosanguineous -Wound Margin Thickened & Distinct, Rolled Under Outline Attached -Granulation Amt Medium (34-66%) Medium (34-66%) -Granulation Quality [place] -Slough/Fibrin Yes Yes -Necrosis Amt Medium (34-66%) Medium (34-66%) -Necrotic Tissue Type Adherent Slough Adherent Slough -Structure Exposed N/A N/A -Texture (Jagruti-wound Skin Appearance) Assessed Assessed -Moisture (Jagruti-wound Skin Appearance) Assessed,Dry/ Assessed Scaly -Color (Jagruti-wound Skin Appearance) Assessed Assessed, Hemosiderin Staining -Temperature (Jagruti-wound Skin No Abnormality No Abnormality Appearance) (Pt Warm) (Pt Warm) -Tenderness on Palpation (Jagruti-wound No No Skin Appearance) -Ulcer Cleansing Wound Cleanser Wound Cleanser -Foul Odor after Cleansing No No -Anesthetic Used 5% Lidocaine 5% Lidocaine Gel Gel Lower Limb Edema Present Yes Yes Right Calf (cm) 33.6 32.2 Right Ankle (cm) 20.6 21 WC - Nurse 2 - General Ulcer CM Notes Start: 06/21/23 10:22 Freq: Status: Active Protocol: Activity Type Activity Date Activity User E-sign Co-sign Detail Recorded Client Recorded Date Recorded By Document 06/21/23 10:50 Laptop 06/21/23 10:52 Document 06/28/23 10:32 [place] [id number] 06/28/23 10:33 DS Document 07/12/23 10:51 DS [id number] 07/12/23 10:53 DS 06/21/23 06/28/23 07/12/23 10:50 10:32 10:51 Wound Center Nurse 2 #3 RT MED ANKLE -Time 10:50 10:32 10:51 -Correct Patient Yes Yes Yes -Correct Side, Site, Position Yes Yes Yes -Correct Procedure Yes Yes Yes -Procedure Performed Yes Yes Yes -Type of Procedure Debridement Debridement Debridement -Clinical Debridement Subcutaneous Subcutaneous Subcutaneous -Tissue Removed Subcutaneous Subcutaneous -Post Debridement (cm) - Length 1 1.0 1.0 -Post Debridement (cm) - Width 0.3 0.6 0.5 -Post Debridement (cm) - Depth 0.4 0.4 0.4 -Total Square (Post) (cm) 0.3 0.60 0.50 -Area of Debridement (cm) - Length 1.0 1.0 1.0 -Area of Debridement (cm) - Width 0.3 0.6 0.5 -Total Square (Area) (cm) 0.30 0.60 0.50 -Tunneling No No No -Undermining/Tunneling No No No -Circular Undermining No No No -Wound/Ulcer Outcome Not Healed Not Healed Not Healed -Ulcer Cleansing Rinsed/ Rinsed/ Rinsed/ Irrigated with Irrigated with Irrigated with Saline Saline Saline -Foul Odor after Cleansing No -Bioengineered Tissue Yes -Type of Bioengineered Tissue Epifix 18mm Disc -Expiration Date 01/15/28 -Product Lot Number [id number] -Percent Used 100 -Lot number of Saline Used [id number] -Bleeding Controlled with Pressure Pressure Pressure -Treatment Response Procedure Procedure Procedure Tolerated Well Tolerated Well Tolerated Well -Offloading No -Debridement - Subq, 1st 20sq cm No Yes Yes -Apply Skin Sub - 1st 25 sq cm - Legs 1 -Epifix 18mm Disc 3 Pain Scale: 0-10 Numeric Is Patient Pain Free? Yes Yes Yes - Nurse 3 - General Ulcer D/C NN Start: 06/21/23 10:22 Freq: Status: Active Protocol: Activity Type Activity Date Activity User E-sign Co-sign Detail Recorded Client Recorded Date Recorded By Document 06/21/23 10:56 Desktop 06/21/23 10:59 RB Document 06/28/23 11:52 RB [id number] 06/28/23 11:53 RB 06/21/23 06/28/23 10:56 11:52 Wound Care Center Nurse 3 #3 RT MED ANKLE -Ulcer Cleansing Rinsed/ Irrigated with Saline -Other Dressing abd hydrogel -Primary Dressing Covered/Secured with Dry Gauze,Dry Gauze & Roll Gauze,Secured with Tape -Wound Comment(s) padded anterior ankle and achilles with abd pad Jagruti-Wound Care Lotion Right -Multi-Layered Wrap Application Multi-Layer Comp - Right ($ ) -Tubular Bandage Single Layer -Size of Tubigrip Used Size D -Size D ($) 1 Treatment Response Procedure Tolerated Well Pain Scale: 0-10 Numeric Is Patient Pain Free? Yes Yes - Visit Discharge Discharge Condition Stable Stable Ambulatory Status Ambulatory, Ambulatory, Walker Walker Transportation Private Auto Private Auto Medication Reconcilliation completed & No No provided to patient/care provider Clinical Summary of Care Provided Yes Yes Notes: dressing 3M applied per Della Acosta LPN Assessment/Plan Assessment/Plan (1) Non-pressure chronic ulcer of right ankle with fat layer exposed: CODE(S): L97.312 - Non-pressure chronic ulcer of right ankle with fat layer exposed PLAN: Exam performed Recent arterial studies within normal limits Patient has venous insufficiency with chronic venous venous leg ulceration right lower extremity Right lower extremity wound was excisionally debrided down to including level of subcutaneous tissue of all nonviable tissue using a throat 3 mm dermal curette. Patient tolerated procedure well. Topical anesthesia used. Pre and postdebridement measurements documented nursing notes. Hemostasis obtained with light compression. will transition to daily santyl, periwound triamcinolone with DSD and tubigrip Patient will follow-up in 1 week for continued care. (2) Venous insufficiency (chronic) (peripheral): CODE(S): I87.2 - Venous insufficiency (chronic) (peripheral)
== END 2023-07-15 23:59 | disposition home or self-care (01) ==
LOC: WC 10:45
PROVIDERS: PCP Family Medicine; Referring Provider Podiatrist; Visit Provider Podiatrist
DX: L97.312 Non-pressure chronic ulcer of right ankle with fat layer exposed (principal); I87.2 Venous insufficiency (chronic) (peripheral); M21.42 Flat foot [pes planus] (acquired), left foot
CPT/HCPCS: 11042; 15271; 29581; Q4186

== ENCOUNTER → 2023-07-19 | Outpatient (CLI) | payer MEDICARE, OTHER, SELFPAY | END | disposition home or self-care (01) | PROVIDERS: PCP Family Medicine; Referring Provider Physician Assistant; Visit Provider Physician Assistant | DX: R30.0 Dysuria (principal) ==

== ENCOUNTER 2023-08-04 01:08 | Inpatient (IN) | payer MEDICARE, OTHER, SELFPAY ==
[2023-08-04] VITALS (14 sets, daily range): BP systolic 105–156; BP diastolic 47–127; PULSE 78–121; RESP 18–26; TEMP 36.5–38.4; O2SAT 90–98; BMI 43.0
--- NOTE | 2023-08-04 01:46 | RAD_ITS ---
EXAM: XR CHEST, 2 VIEWS CLINICAL INDICATION: COUGH COUGH TECHNIQUE: Frontal and lateral views of the chest. COMPARISON: No relevant prior studies available. FINDINGS: LUNGS AND PLEURAL SPACES: There are areas of fibrosis or atelectasis in the mid and lower lung manzano bilaterally. Densities are asymmetrically more prominent on the left and early active left lower lobe or lingular infiltrate cannot be excluded. No pneumothorax. No effusion. HEART: Unremarkable. Cardiac silhouette not enlarged. MEDIASTINUM: Central airways and mediastinal contour are unremarkable. BONES/JOINTS: There is a right shoulder prosthesis. No acute fracture. SOFT TISSUES: Unremarkable. RAD/Chest PA and Lateral IMPRESSION: Fibrosis or atelectasis in the mid and lower lung manzano bilaterally, asymmetrically more prominent on the left. Cannot exclude active left lower lobe or lingular infiltrate.. Electronically Signed: Archie Bowers MD at 3:43 EDT Reading Location ID and State: [facility] / [place] , Service support ,
[2023-08-04 01:54] LABS: Absolute Neutrophil Count 8.8 X10^3/uL (2.0-7.7); Basophil# 0.03 X10^3/uL; Basophil% 0.3 % (0-1); Eosinophil# 0.28 X10^3/uL; Eosinophils% 2.5 % (0-5); Hematocrit 38.9 % (37-47); Hemoglobin 11.8 g/dL (12.0-15.0); Lymphocyte % 9.9 % (19-41); Mean Corp Hgb Conc 30.3 g/dL (32-36); Mean Corpuscular Hgb 29.9 pg (27.0-32.0); Mean Corpuscular Volume 98.7 fL (81-99); Mean Platelet Vol. 10.6 fl (6.2-12.0); Monocyte# 0.79 X10^3/uL; Monocyte% 7.1 % (0-10); NRBC Flagged by Analyzer 0 % (0-5); Neutrophil # 8.81 X10^3/uL (2.7-7.7); Neutrophil % 79.7 % (47-70); Platelet Count 317 K/mm3 (150-450); RBC Distribution Width CV 13.9 % (11.6-14.6); RBC Distribution Width SD 50.9 fl (35.1-43.9); Red Blood Count 3.94 M/mm3 (4.2-5.4); White Blood Count 11.1 K/mm3 (4.4-11.0)
[2023-08-04] MEDS: Ondansetron 4 MG/2 ML Vial IV (01:55)
[2023-08-04] MEDS: Morphine 4 MG/ML Syringe IV (01:55)
[2023-08-04 02:08] LABS: Anion Gap 8 (5-15); BUN 32 mg/dL (7-18); BUN/Creat Ratio 20.9 RATIO (10-20); Calcium,Total 9.5 mg/dL (8.5-10.1); Chloride 107 mmol/L (98-107); Creatinine, Serum 1.53 mg/dL (0.55-1.02); EST Glomerular Filtration Rate 36 mL/min (>60); Est Glom Filt Rate - Afr Amer 43 mL/min (>60); Estimated Creatinine Clearance 38.35 ml/min; Glucose 143 mg/dL (74-106); Potassium 3.8 mmol/L (3.5-5.1); Sodium Level 139 mmol/L (136-145)
[2023-08-04 02:17] LABS: BNP,B-Type NATRIURETIC PEPTIDE 18.7 pg/mL (0-100)
--- NOTE | 2023-08-04 04:00 | CT_ITS ---
EXAM: CT CHEST WITHOUT INTRAVENOUS CONTRAST CLINICAL INDICATION: PNEUMONIA PNEUMONIA TECHNIQUE: Helically acquired images were obtained of the chest without intravenous contrast. This CT exam was performed using one or more of the following dose reduction techniques: automated exposure control, adjustment of the mA and/or kV according to patient size, and/or use of iterative reconstruction technique. RADIATION DOSE: CTDIvol = 19.12 mGy, DLP = 640.23 mGy-cm COMPARISON: CT scan chest 12/09/2017. Chest x-ray 08/04/2023. FINDINGS: LUNGS AND PLEURAL SPACES: There are areas of atelectasis in the lower lung manzano bilaterally, left greater than right. There is a left lower lobe pulmonary airspace infiltrate consistent with pneumonia. As seen on axial image 51, there is a 1.9 cm right upper lobe lung nodule which has decreased in size compared with the 2018 exam. As on axial image 32, there is a 6.6 mm left upper lobe lung nodule which has not increased in size since the 2018 exam. No further evaluation of these nodules is necessary. There is bronchiectasis bilaterally, which is most prominent in the left lower lobe. There is central pulmonary till prominence, suggesting pulmonary hypertension. No pleural effusion or thickening. HEART: There are coronary artery calcifications. Heart size is normal. No pericardial effusion. MEDIASTINUM: Unremarkable. No mediastinal or hilar adenopathy. Esophagus is unremarkable. No hiatal hernia. THYROID: Unremarkable. No thyroid lesions. BONES/JOINTS: There is a right shoulder prosthesis. There are multilevel degenerative changes in the visualized spine. No suspicious lytic or blastic abnormality. VASCULATURE: There is atherosclerotic calcification of the thoracic aorta. CT/Chest without Contrast IMPRESSION: 1. Left lower lobe pneumonia. 2. Mild atelectasis in the lower lung manzano bilaterally. 3. Bronchiectasis, most prominent in the left lower lobe. Suggestion of pulmonary hypertension. 4. Bilateral upper lobe lung nodules have not increased in size since the 2018 exam. No further evaluation is necessary. 5. Atherosclerosis. Electronically Signed: Archie Bowers MD at 6:03 EDT ,
[2023-08-04] MEDS: Ipratropium/Albuterol Sulfate 3 ML AMPUL.NEB INHALATION (04:02)
[2023-08-04] MEDS: Acetaminophen 500 MG Tablet 1000 MG PO (04:04)
[2023-08-04] MEDS: HYDROmorphone 0.5 MG/0.5 ML SYRINGE IV (04:05)
--- NOTE | 2023-08-04 06:03 | PCM.HP.STD ---
[facility] - General General Date of Admission: 08/04/23 Date of Service: 08/04/23 Chief Complaint: Fevers, SOB and Cough. HPI Narrative LAURA STARK, is a 68 F with a past medical history of essential hypertension, hyperlipidemia, hypothyroidism, morbid obesity; with BMI of 43 this admission on Semaglutide, GAGAN, DM-2; of unknown control, PAF; on Cardizem and Eliquis, history of VTE, history of DCCV (2016), history of previous tobacco abuse (quit 1975); with subsequent asthma/COPD with recent bout of Pneumonia with cavitation in the Right lung due to Pseudomonas in April and May of this year plus additional history of previous Right MRSA Pneumonia followed by Dr. Bazzi of the pulmonology service, chronic non-pressure venous ulcer of the Right ankle; with history of debridement and vein stripping with recent skin graft last followed by [facility], chronic anemia, glaucoma, history of foot surgery, history of Right shoulder fracture (2009), OA; s/p bilateral THR's with back/neck pain and numerous drug allergies; including to steroids for myopathy who presents to [facility] ER complaining of fevers, SOB and cough. Ms. Stark reports her symptoms began approximately one week prior to admission with the gradual-onset of HAWTHORNE that progressed to SOB at rest. She also admits to frequent minimally productive cough with associated anterior and posterior Left rib cage pain that has worsened as her illness has progressed. She was also noted to have a fever of ~102 degrees Fahrenheit with malaise and fatigue so he finally decided to come in for further evaluation and treatment. She denies associated nausea, vomiting, palpitations, heart racing, diaphoresis, near-syncope or syncope but she would like to have Dr. Bazzi consulted on her case this admission since her recurrent right lung infections seem to be continuing in spite of appropriate and aggressive treatment. In the ER she was noted to have x-ray evidence of Right lower lobe infiltrate consistent with pneumonia complicated by clinical evidence of respiratory insufficiency but without evidence of severe wheezing and AE COPD at this time (with patient very desirous to minimize steroid exposure due to previous steroid induced myopathy) and she was then admitted to the general medical floor for ongoing care for stay that is expected to extend beyond 2 midnights. [facility] Medical History Necrosis Venous ulcer Essential hypertension Hyperlipidemia Asthma Iron deficiency anemia Vitamin D deficiency Chronic diastolic congestive heart failure Hypothyroidism Allergic rhinitis Gastroesophageal reflux disease History of COPD History of diabetes mellitus Atrial fibrillation Hypertension Easy bruising History of stress test History of echocardiogram Cardiology follow-up encounter Wears glasses Anxiety Diabetes Walker as ambulation aid History of renal disease Anemia Migraine headache Back pain Injury of back Shortness of breath on exertion History of edema Pain of left hip Bronchiectasis with (acute) exacerbation High cholesterol Hypothyroidism Kidney disease Former smoker Congestive heart failure (CHF) Hypertension Hypoxemia Bronchiectasis Pneumonia due to Pseudomonas Cough Palpitations Paroxysmal atrial fibrillation Chronic diastolic heart failure GAGAN (obstructive sleep apnea) Septic shock 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 COPD with acute exacerbation Lung nodule Thrush, oral History of DVT (deep vein thrombosis) Abnormal chest CT Shortness of breath Cavitary lesion of lung Aspiration into airway Obesity Chronic respiratory failure Precordial chest pain Paroxysmal atrial tachycardia Right foot pain MRSA pneumonia Venous thromboembolism (VTE) Hyperlipidemia Diabetes mellitus HCAP (healthcare-associated pneumonia) Severe sepsis Coarse tremors Weakness Acute respiratory failure DVT (deep venous thrombosis) Pulmonary embolism Allergic rhinitis Insomnia Steroid myopathy Atrial fibrillation with rapid ventricular response Pneumonia ALEXYS (acute kidney injury) PVD (peripheral vascular disease) Atrial tachycardia Morbid obesity Acute bronchiolitis Tachycardia Hx pulmonary embolism Cellulitis of right lower extremity Umbilical hernia Gastroesophageal reflux disease COLD (chronic obstructive lung disease) Benign essential HTN Home Medications ?Medication ?Instructions ?Recorded ?Last Taken ?Type levothyroxine 25 mcg tablet 25 mcg PO DAILY@0600 thyroid 01/04/20 09/16/21 08:00 History famotidine 40 mg tablet 40 mg PO QHS reflux 04/02/20 07/03/21 23:04 History cholecalciferol (vitamin D3) 50 50 mcg PO DAILY SUPPLEMENT 09/19/20 07/04/21 05:54 History mcg (2,000 unit) capsule furosemide 40 mg tablet (Lasix) 40 mg PO BID water pill 09/19/20 07/04/21 05:52 History esomeprazole magnesium 40 mg 40 mg PO DAILY reflux 10/13/20 09/16/21 08:00 History capsule,delayed release (Nexium) potassium chloride 20 mEq 20 meq PO BID supplement 10/13/20 07/03/21 07:56 History tablet,extended release(part/cryst) ferrous sulfate 325 mg (65 mg 325 mg PO DAILY anemia 06/26/21 07/03/21 11:43 History iron) tablet acetaminophen 500 mg tablet 1,000 mg (2 x 500 mg) PO Q8 PRN 07/14/21 07/04/21 05:51 Rx pain of temp > 101 #0 tabs albuterol sulfate 2.5 mg/3 mL 2.5 mg (3 mL) inhalation Q4H PRN 05/17/22 Unknown Rx (0.083 %) solution for nebulization breathing #180 vials fluticasone propionate 230 2 puff inhalation BID lungs #3 ea 12/10/22 Unknown Rx mcg-salmeterol 21 mcg/actuation HFA inhaler (Advair HFA) montelukast 10 mg tablet 10 mg PO QHS asthma #90 tabs 12/10/22 Unknown Rx (Singulair) atorvastatin 10 mg tablet 10 mg PO QHS #90 tabs 12/21/22 Unknown Rx apixaban 5 mg tablet (Eliquis) 5 mg PO BID anticoagulant #180 tabs 02/28/23 Unknown Rx diltiazem HCl 180 mg 180 mg PO DAILY heart #90 caps 02/28/23 Unknown Rx capsule,extended release 24 hr (Cardizem CD) ipratropium bromide 42 mcg (0.06 2 spray intranasal TID PRN DRY NOSE 03/10/23 Unknown History %) nasal spray latanoprost 0.005 % eye drops 1 drp ophthalmic (eye) QPM 03/10/23 Unknown History albuterol sulfate 90 mcg/actuation 2 puff inhalation Q4H PRN 06/21/23 Unknown Rx aerosol inhaler (Ventolin HFA) shortness of breath or wheezing #1 ea semaglutide (weight loss) 0.5 0.5 mg subcut QWEEK 07/19/23 08/03/23 History mg/0.5 mL subcutaneous pen injector Allergy/AdvReac Type Severity Reaction Status Date / Time adhesive Allergy SKIN Verified 08/04/23 01:10 TEARS. PAPER TAPE OK azithromycin (From Zithromax) Allergy Rash Verified 08/04/23 01:10 cefuroxime sodium (From Allergy Rash Verified 08/04/23 01:10 Zinacef) clindamycin Allergy Hives Verified 08/04/23 01:10 Sulfa (Sulfonamide Allergy Rash Verified 08/04/23 01:10 Antibiotics) atenolol AdvReac Severe Peripheal Verified 08/04/23 01:10 edema & cough metoprolol (From Toprol XL) AdvReac Severe Peripheral Verified 08/04/23 01:10 edema & cough duloxetine (From Cymbalta) AdvReac Intermediate made me Verified 08/04/23 01:10 feel really sick nitrofurantoin AdvReac Mild unknown Verified 08/04/23 01:10 macrocrystalline (From Macrodantin) Corticosteroids AdvReac Other Verified 08/04/23 01:10 (Glucocorticoids) oxycodone HCl (From Percocet) AdvReac Vomiting Verified 08/04/23 01:10 Family History Mother Hypertension Diabetes Heart disease Pulmonary embolism Father Perforated ulcer Respiratory failure Sister Asthma Hypertension Surgical History History of total left hip replacement Status post total hip replacement, left Status post hip replacement S/P hip replacement Hx of vein stripping S/P hysterectomy History of appendectomy History of cardioversion (~12/2016) History of left heart catheterization H/O hernia repair H/O foot surgery H/O shoulder surgery H/O section H/O: hysterectomy Social History household members: none Smoking Status: Former smoker quit date: 02/14/75 pack-years: 3 second hand exposure: No alcohol intake: never substance use type: does not use caffeine: No what type of physical activity do you participate in: none ROS ROS Narrative Review of systems: Vital Signs Vital Signs Vital Signs: 08/04/23 01:11 08/04/23 01:14 08/04/23 01:30 Temperature 98.6 F 98.6 F Temperature Source Oral Oral Pulse Rate 113 H 113 H Respiratory Rate 26 H 26 H Respiratory Effort Short of Breath Respiratory Pattern Tachypnea Blood Pressure 156/84 H 156/84 H Blood Pressure Mean 108 108 Pulse Ox 98 98 Oxygen Delivery Method Room Air Room Air Oxygen Flow Rate (L/min) 08/04/23 02:14 08/04/23 03:00 08/04/23 04:00 Temperature 101.1 F H 99.8 F H 99.7 F H Temperature Source Oral Oral Oral Pulse Rate 121 H 110 H 112 H Respiratory Rate 20 H 20 H 18 Respiratory Effort Respiratory Pattern Blood Pressure 147/80 H 147/80 H 114/57 L Blood Pressure Mean 102 102 76 Pulse Ox 95 90 98 Oxygen Delivery Method Room Air Room Air Nasal Cannula Oxygen Flow Rate (L/min) 2 08/04/23 04:00 08/04/23 04:04 08/04/23 05:00 Temperature 99.7 F H 100.1 F H Temperature Source Oral Oral Pulse Rate 112 H 105 H 110 H Respiratory Rate 18 20 H 20 H Respiratory Effort Respiratory Pattern Blood Pressure 114/57 L 114/57 L Blood Pressure Mean 76 76 Pulse Ox 98 94 Oxygen Delivery Method Nasal Cannula Nasal Cannula Oxygen Flow Rate (L/min) 2 2 Weight Weight: 227 lb 11.8 oz Body Mass Index (BMI) 43.0 Physical Exam Const alert, oriented x3, no apparent distress and average body habitus Constitutional Narrative: Patient is morbidly obese and she appears moderately ill. General Appearance: cooperative HEENT normocephalic, head/scalp atraumatic, hearing grossly normal bilaterally and moist oral mucous membranes Eyes PERRL and EOMs intact bilaterally Neck no lymphadenopathy and supple Resp Resp Narrative: Diminished breath sounds throughout R>L. Auscultation: crackles Cardio regular rate and regular rhythm GI normal to inspection, nondistended, normoactive bowel sounds, soft to palpation, non-tender and non-distended GI Narrative: Morbidly obese. Extremity normal to inspection and full ROM Skin Skin Narrative: Patient has ne evidence of jaundice or rash. Neuro oriented x3, CN's II-XII intact bilaterally, moves all extremities and no focal motor deficits Sensorium / Orientation: awake, alert, oriented to person, oriented to place and oriented to time Speech: speech normal Psych affect normal Results Medical Records Data Attestation: I reviewed the patient's medical records Lab / Micro Data Attestation: I reviewed the patient's lab results. 08/04/23 01:22 08/04/23 01:22 Labs: Laboratory Results - last 24 hr 08/04/23 01:22: WBC 11.1 H, RBC 3.94 L, Hgb 11.8 L, Hct 38.9, MCV 98.7, MCH 29.9, MCHC 30.3 L, RDW Std Deviation 50.9 H, RDW Coeff of Lanre 13.9, Plt Count 317, MPV 10.6, Immature Gran % (Auto) 0.500, Neut % (Auto) 79.7 H, Lymph % (Auto) 9.9 L, [place] % (Auto) 7.1, Eos % (Auto) 2.5, Baso % (Auto) 0.3, Absolute Neuts (auto) 8.8 H, Absolute Lymphs (auto) 1.10, Nucleated RBC % 0, Sodium 139, Potassium 3.8, Chloride 107, Carbon Dioxide 24.0, Anion Gap 8, BUN 32 H, Creatinine 1.53 H, Estim Creat Clear Calc 38.35, Est GFR (MDRD) Af Amer 43 L, Est GFR (MDRD) Non-Af 36 L, BUN/Creatinine Ratio 20.9 H, Glucose 143 H, Calcium 9.5, Magnesium 2.0, B-Natriuretic Peptide 18.7 Micro: Microbiology 08/04/23 02:00 Mucosa - Nose SARS-CoV-2, Influenza & RSV (PCR) - Final Imaging Radiology Impression Chest X-Ray 08/04/23 01:46 IMPRESSION: Fibrosis or atelectasis in the mid and lower lung manzano bilaterally, asymmetrically more prominent on the left. Cannot exclude active left lower lobe or lingular infiltrate.. 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 RLL Pneumonia in the setting of remote tobacco abuse (quit 1975) with subsequent COPD - Admit to general medical floor. Continue broad-spectrum antibiotics and await culture and sensitivity data. Give Tylenol prn pain or fever. Finally, we will consult Dr. Bazzi of the pulmonary service see this patient on rounds in the a.m. for further recommendations at patient request due to her recurrent Right lung infections in spite of appropriate and aggressive treatment with help appreciated in advance.. 2. Respiratory insufficiency due to #1 - Wean supplemental oxygen as tolerated. 3. Morbid Obesity; with BMI of 43 this admission with GAGAN complicating #1 & #2 - Weight loss will be recommended. Check TSH. Continue on Semaglutide as before. Continue nocturnal CPAP. 4. Chronic non-pressure venous ulcer of the Right ankle; with history of debridement and vein stripping with history of MRSA followed by [facility] here compounding #1 - #4 - Stable. place on contact isolation. Wound RN to see patient on-rounds in the AM for further recommendations with help appreciated in advance. 5. History of steroid myopathy compounding #1 - #4 - We will minimize and attempt to avoid further steroids if at all possible in an effort to prevent recurrence of myopathy. 6. Essential hypertension - Continue home medications plus give IV Hydralazine prn for systolic blood pressure > 160 mmHg. 7. Hyperlipidemia - Resume statin as previous. 8. Hypothyroidism - Continue Levothyroxine and check TSH. 9. DM-2; of unknown control - ADA diet. FSBS q. AC/HS plus SSI. Check HgbA1C to objectively assess quality of diabetic control. 10. PAF; on Cardizem and Eliquis - Home regimen to continue unchanged. 11. History of VTE - Patient already on Eliquis for #10. 12. History of DCCV (2016) - Noted. 12. Chronic anemia - Stable. 13. Glaucoma - Continue eye drops as previous. 14. History of Right shoulder fracture (2009), - Noted. 15. OA; s/p bilateral THR's with back/neck pain - Give Tylenol prn. 16. DVT prophylaxis - Patient already on Eliquis for #10 which will be continued. Total time: Approximately 75 minutes. Charges/Coding Visit Charges Inpatient E&M: 39729 Init Hosp L3
--- NOTE | 2023-08-04 06:11 | EDS_ITS ---
HPI History of Present Illness Chief Complaint: Fever Informant: patient Narrative Narrative: Patient is a 68-year-old female with past medical history of asthma as well as COPD as well as previous pulmonary embolus currently on Eliquis. She also has history of hypertension hyperlipidemia. She reports that she has a longstanding history of lung infections and that her most recent antibiotic was in April to May for a Pseudomonas infection. She states she was recently treated for a UTI but in the last 1 to 2 days has had increased coughing and today developed a fever of approximate 102 at home. Secondary to the worsening cough and shortness of breath as well as fever she now has concern for an infection such as pneumonia and comes in the hospital for evaluation [facility] Medical History Necrosis Venous ulcer Essential hypertension Hyperlipidemia Asthma Iron deficiency anemia Vitamin D deficiency Chronic diastolic congestive heart failure Hypothyroidism Allergic rhinitis Gastroesophageal reflux disease History of COPD History of diabetes mellitus Atrial fibrillation Hypertension Easy bruising History of stress test History of echocardiogram Cardiology follow-up encounter Wears glasses Anxiety Diabetes Walker as ambulation aid History of renal disease Anemia Migraine headache Back pain Injury of back Shortness of breath on exertion History of edema Pain of left hip Bronchiectasis with (acute) exacerbation High cholesterol Hypothyroidism Kidney disease Former smoker Congestive heart failure (CHF) Hypertension Hypoxemia Bronchiectasis Pneumonia due to Pseudomonas Cough Palpitations Paroxysmal atrial fibrillation Chronic diastolic heart failure GAGAN (obstructive sleep apnea) Septic shock 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 COPD with acute exacerbation Lung nodule Thrush, oral History of DVT (deep vein thrombosis) Abnormal chest CT Shortness of breath Cavitary lesion of lung Aspiration into airway Obesity Chronic respiratory failure Precordial chest pain Paroxysmal atrial tachycardia Right foot pain MRSA pneumonia Venous thromboembolism (VTE) Hyperlipidemia Diabetes mellitus HCAP (healthcare-associated pneumonia) Severe sepsis Coarse tremors Weakness Acute respiratory failure DVT (deep venous thrombosis) Pulmonary embolism Allergic rhinitis Insomnia Steroid myopathy Atrial fibrillation with rapid ventricular response Pneumonia ALEXYS (acute kidney injury) PVD (peripheral vascular disease) Atrial tachycardia Morbid obesity Acute bronchiolitis Tachycardia Hx pulmonary embolism Cellulitis of right lower extremity Umbilical hernia Gastroesophageal reflux disease COLD (chronic obstructive lung disease) Benign essential HTN Home Medications ?Medication ?Instructions ?Recorded ?Last Taken ?Type levothyroxine 25 mcg tablet 25 mcg PO DAILY@0600 thyroid 01/04/20 09/16/21 08:00 History famotidine 40 mg tablet 40 mg PO QHS reflux 04/02/20 07/03/21 23:04 History cholecalciferol (vitamin D3) 50 50 mcg PO DAILY SUPPLEMENT 09/19/20 07/04/21 05:54 History mcg (2,000 unit) capsule furosemide 40 mg tablet (Lasix) 40 mg PO BID water pill 09/19/20 07/04/21 05:52 History esomeprazole magnesium 40 mg 40 mg PO DAILY reflux 10/13/20 09/16/21 08:00 History capsule,delayed release (Nexium) potassium chloride 20 mEq 20 meq PO BID supplement 10/13/20 07/03/21 07:56 History tablet,extended release(part/cryst) ferrous sulfate 325 mg (65 mg 325 mg PO DAILY anemia 06/26/21 07/03/21 11:43 History iron) tablet acetaminophen 500 mg tablet 1,000 mg (2 x 500 mg) PO Q8 PRN 07/14/21 07/04/21 05:51 Rx pain of temp > 101 #0 tabs albuterol sulfate 2.5 mg/3 mL 2.5 mg (3 mL) inhalation Q4H PRN 05/17/22 Unknown Rx (0.083 %) solution for nebulization breathing #180 vials fluticasone propionate 230 2 puff inhalation BID lungs #3 ea 12/10/22 Unknown Rx mcg-salmeterol 21 mcg/actuation HFA inhaler (Advair HFA) montelukast 10 mg tablet 10 mg PO QHS asthma #90 tabs 12/10/22 Unknown Rx (Singulair) atorvastatin 10 mg tablet 10 mg PO QHS #90 tabs 12/21/22 Unknown Rx apixaban 5 mg tablet (Eliquis) 5 mg PO BID anticoagulant #180 tabs 02/28/23 Unknown Rx diltiazem HCl 180 mg 180 mg PO DAILY heart #90 caps 02/28/23 Unknown Rx capsule,extended release 24 hr (Cardizem CD) ipratropium bromide 42 mcg (0.06 2 spray intranasal TID PRN DRY NOSE 03/10/23 Unknown History %) nasal spray latanoprost 0.005 % eye drops 1 drp ophthalmic (eye) QPM 03/10/23 Unknown History albuterol sulfate 90 mcg/actuation 2 puff inhalation Q4H PRN 06/21/23 Unknown Rx aerosol inhaler (Ventolin HFA) shortness of breath or wheezing #1 ea semaglutide (weight loss) 0.5 0.5 mg subcut QWEEK 07/19/23 08/03/23 History mg/0.5 mL subcutaneous pen injector Allergy/AdvReac Type Severity Reaction Status Date / Time adhesive Allergy SKIN Verified 08/04/23 01:10 TEARS. PAPER TAPE OK azithromycin (From Zithromax) Allergy Rash Verified 08/04/23 01:10 cefuroxime sodium (From Allergy Rash Verified 08/04/23 01:10 Zinacef) clindamycin Allergy Hives Verified 08/04/23 01:10 Sulfa (Sulfonamide Allergy Rash Verified 08/04/23 01:10 Antibiotics) atenolol AdvReac Severe Peripheal Verified 08/04/23 01:10 edema & cough metoprolol (From Toprol XL) AdvReac Severe Peripheral Verified 08/04/23 01:10 edema & cough duloxetine (From Cymbalta) AdvReac Intermediate made me Verified 08/04/23 01:10 feel really sick nitrofurantoin AdvReac Mild unknown Verified 08/04/23 01:10 macrocrystalline (From Macrodantin) Corticosteroids AdvReac Other Verified 08/04/23 01:10 (Glucocorticoids) oxycodone HCl (From Percocet) AdvReac Vomiting Verified 08/04/23 01:10 Family History Mother Hypertension Diabetes Heart disease Pulmonary embolism Father Perforated ulcer Respiratory failure Sister Asthma Hypertension Surgical History History of total left hip replacement Status post total hip replacement, left Status post hip replacement S/P hip replacement Hx of vein stripping S/P hysterectomy History of appendectomy History of cardioversion (~12/2016) History of left heart catheterization H/O hernia repair H/O foot surgery H/O shoulder surgery H/O section H/O: hysterectomy Social History household members: none Smoking Status: Former smoker quit date: 02/14/75 pack-years: 3 second hand exposure: No alcohol intake: never substance use type: does not use caffeine: No what type of physical activity do you participate in: none ROS ROS ED Constitutional Constitutional ED: Reports chills and fever(s) ENT ENT ED: Reports rhinorrhea; Denies sore throat Cardiovascular Cardiovascular: Reports chest pain Respiratory/Chest Respiratory/Chest: Reports cough and dyspnea Gastrointestinal Gastrointestinal: Reports nausea; Denies abdominal pain, diarrhea or vomiting Genitourinary Genitourinary ED: Denies dysuria Musculoskeletal Musculoskeletal: Reports back pain Integumentary Denies rash Neurologic Neurologic: Denies headache(s) Hematologic/Lymphatic Hematologic/Lymphatic: Reports easy bleeding and easy bruising Allergic/Immunologic Allergic/Immunologic ED: Denies mouth swelling or tongue swelling EXAM Physical Exam Const Vital Signs: 08/04/23 01:11 08/04/23 01:14 08/04/23 01:30 Temperature 98.6 F 98.6 F Temperature Source Oral Oral Pulse Rate 113 H 113 H Respiratory Rate 26 H 26 H Respiratory Effort Short of Breath Respiratory Pattern Tachypnea Blood Pressure 156/84 H 156/84 H Blood Pressure Mean 108 108 Pulse Ox 98 98 Oxygen Delivery Method Room Air Room Air Oxygen Flow Rate (L/min) 08/04/23 02:14 08/04/23 03:00 08/04/23 04:00 Temperature 101.1 F H 99.8 F H 99.7 F H Temperature Source Oral Oral Oral Pulse Rate 121 H 110 H 112 H Respiratory Rate 20 H 20 H 18 Respiratory Effort Respiratory Pattern Blood Pressure 147/80 H 147/80 H 114/57 L Blood Pressure Mean 102 102 76 Pulse Ox 95 90 98 Oxygen Delivery Method Room Air Room Air Nasal Cannula Oxygen Flow Rate (L/min) 2 08/04/23 04:00 08/04/23 04:04 08/04/23 05:00 Temperature 99.7 F H 100.1 F H Temperature Source Oral Oral Pulse Rate 112 H 105 H 110 H Respiratory Rate 18 20 H 20 H Respiratory Effort Respiratory Pattern Blood Pressure 114/57 L 114/57 L Blood Pressure Mean 76 76 Pulse Ox 98 94 Oxygen Delivery Method Nasal Cannula Nasal Cannula Oxygen Flow Rate (L/min) 2 2 08/04/23 06:00 08/04/23 06:00 Temperature 99.6 F H 99.6 F H Temperature Source Oral Oral Pulse Rate 99 99 Respiratory Rate 20 H 20 H Respiratory Effort Respiratory Pattern Blood Pressure 120/62 120/62 Blood Pressure Mean 81 81 Pulse Ox 90 93 Oxygen Delivery Method Nasal Cannula Nasal Cannula Oxygen Flow Rate (L/min) 2 2 Positive well nourished, well developed and obese General Appearance ED: well developed Nutritional Appearance: obese HEENT HEENT Narrative: No tongue or lip swelling no oral lesions no airway edema or compromise Patient has cobblestoning noted in the posterior pharynx consistent with sinus drainage but no secondary changes to suggest infection. Eyes PERRL and EOMs intact bilaterally General Eye ED: Negative for scleral icterus Neck supple and no JVD Neck Narrative: No meningeal signs noted Chest Wall Chest Narrative: There is reproducible anterior chest wall pain on palpation without bony deformity or crepitance noted Resp Resp Narrative: Patient is tachypneic with accessory muscle use. Breath sounds are diminished throughout with diffuse rhonchi and faint expiratory wheeze in the bilateral bases Cardio regular rhythm Rate: tachycardic and other Other Details: Tachycardic rate with regular rhythm Radial and carotid pulses are equal and symmetric GI normal to inspection, nondistended, normoactive bowel sounds, non-tender, non- distended and no masses GI Narrative: No pulsatile mass or fluid wave noted Auscultation: normoactive bowel sounds Palpation: soft Back/Spine Back/Spine Narrative: No bony deformity or step-off of the thoracic or lumbar spine no midline tenderness to palpation Extremity Extremity Narrative: Patient has a venous stasis ulcer to the medial malleolus of the left lower leg. No secondary changes to suggest infection There is trace to +1 pitting edema bilaterally that is equal and symmetric Neuro oriented x3, CN's II-XII intact bilaterally and no sensory deficits noted Sensorium / Orientation: alert Motor Exam: strength 5/5 throughout Psych Psych Narrative: Patient has a nervous/anxious affect Skin Skin Narrative: Venous stasis ulcer to the left lower leg as documented above MDM MDM MDM Narrative Medical decision making narrative: Patient arrived to the ER technically afebrile and was satting in the mid to high 90s on room air. Differential diagnosis is for pneumonia versus pneumothorax versus congestive heart failure versus acute blood loss anemia versus acute kidney injury. Secondary to this a chest x-ray with basic blood work was obtained. Labs revealed chronic renal sufficiency at baseline and otherwise no clinically significant findings. Chest x-ray showed changes concerning for fibrosis with potential developing infection. The patient's temperature continue to fluctuate while in the ER which was concerning for missed pneumonia on chest x-ray. As patient states has been taking her Eliquis as directed I have low concern that patient is developing a pulmonary embolus. Therefore a CT with noncontrast will be obtained secondary to low concern for PE and the fact patient has chronic renal insufficiency and is currently on Eliquis. The scan showed some asymmetric findings in the left lung compared to the right concerning for developing pneumonia. While the patient was in the hospital her pulse ox room air dropped into the mid 80s. She was placed on nasal cannula oxygen and this helped her sats increased to mid 90s. At this time as patient is showing persistent/fluctuating fever with pneumonia and is now hypoxic I do not feel she is safe for discharge and therefore admit the patient to the hospital for further care History & Record Review Discussion w/independent historian: Patient and Family Lab Data Attestation: I reviewed the patient's lab results. Labs: Laboratory Results - last 24 hr 08/04/23 08/04/23 01:22 05:50 WBC 11.1 H RBC 3.94 L Hgb 11.8 L Hct 38.9 MCV 98.7 MCH 29.9 MCHC 30.3 L RDW Std Deviation 50.9 H RDW Coeff of Lanre 13.9 Plt Count 317 MPV 10.6 Immature Gran % (Auto) 0.500 Neut % (Auto) 79.7 H Lymph % (Auto) 9.9 L [place] % (Auto) 7.1 Eos % (Auto) 2.5 Baso % (Auto) 0.3 Absolute Neuts (auto) 8.8 H Absolute Lymphs (auto) 1.10 Nucleated RBC % 0 Sodium 139 Potassium 3.8 Chloride 107 Carbon Dioxide 24.0 Anion Gap 8 BUN 32 H Creatinine 1.53 H Estim Creat Clear Calc 38.35 Est GFR (MDRD) Af Amer 43 L Est GFR (MDRD) Non-Af 36 L BUN/Creatinine Ratio 20.9 H Glucose 143 H Lactic Acid 1.5 Calcium 9.5 Magnesium 2.0 B-Natriuretic Peptide 18.7 Radiography Diagnostic Testing: Clinical Impression(s) from Imaging Studies Chest X-Ray 08/04/23 01:46 IMPRESSION: Fibrosis or atelectasis in the mid and lower lung manzano bilaterally, asymmetrically more prominent on the left. Cannot exclude active left lower lobe or lingular infiltrate.. Electronically Signed: Archie Bowers MD at 3:43 EDT Reading Location ID and State: [facility] / [place] , Service support , Chest x-ray as interpreted by the emergency medicine physician reveals fibrotic changes with potential left lower lobe infiltrate Discharge Plan Dx/Rx/DC Orders Clinical Impression: Pneumonia, Hypoxia, Asthma exacerbation in COPD, Chronic kidney disease, stage 3a, Essential hypertension, Current use of buttermaker anticoagulation Disposition Disposition: Acute Care Hospital [facility]
[2023-08-04 06:27] LABS: Lactic Acid 1.5 mmol/L (0.4-1.9)
[2023-08-04] MEDS: proCHLORPERazine 10 MG/2 ML Vial 5 MG IV (06:34)
[2023-08-04] MEDS: MethylPREDNISolone 125 MG/2 ML Vial IV (06:35)
[2023-08-04] MEDS: 0.9% Normal Saline (1000mL) 1,000 ML 70 ML IV ×2 (07:42→20:59)
[2023-08-04] MEDS: levoFLOXacin IV 750 MG in Empty Viaflex Q24 100 MG IV (07:43)
--- NOTE | 2023-08-04 09:22 | WOUNDNOTE ---
Was consulted on patient for chronic right ankle wound. Pt has been following at the wound healing center with Dr Cavanaugh. an Epifix was just applied 2 days ago and is to remain in place until 08/09/23. orders received to leave dressing in place. will monitor.
[2023-08-04 09:37] LABS: Bedside Glucose 174 mg/dL (74-106)
[2023-08-04] MEDS: Insulin Lispro 100 UNIT/ML INSULN.PEN SC ×3 (10:26→20:57)
[2023-08-04] MEDS: Lactobacillis Acidophilus 2 CAP PO ×2 (10:27→20:33)
[2023-08-04] MEDS: Furosemide 40 MG Tablet PO ×2 (10:27→20:33)
[2023-08-04] MEDS: Ascorbic Acid 500 MG Tablet 1000 MG PO ×2 (10:27→18:22)
[2023-08-04] MEDS: Ferrous Sulfate 325 MG Tablet PO (10:27)
[2023-08-04] MEDS: Pantoprazole Sodium 40 MG Tablet PO (10:27)
[2023-08-04] MEDS: Cholecalciferol (VIT D3) 25 MCG TABLET (1,000 UNITS) 50 MCG PO (10:27)
[2023-08-04] MEDS: dilTIAZem CD 180 MG Capsule PO (10:27)
[2023-08-04] MEDS: APIXABAN 5 MG TABLET PO ×2 (10:28→20:33)
[2023-08-04] MEDS: Potassium Chloride Oral Tablet 20 MEQ PO ×2 (10:28→18:21)
[2023-08-04] MEDS: Zinc Sulfate 50 mg zinc (220 mg) ORAL capsule PO (10:29)
[2023-08-04] MEDS: guaiFENesin 1,200 MG Tablet 1200 MG PO ×2 (10:50→20:33)
[2023-08-04 11:03] LABS: Thyroid Stim Hormone (TSH) 4.33 uIU/mL (0.358-3.74)
--- NOTE | 2023-08-04 11:24 | CASEMGMT ---
MARIO HURST Assessment Face to Face with patient for initial transition planning/care coordination assessment. MARIO HURST introduced self and role at [facility], pt voices understanding. Pt is A&Ox4 and is resting comfortably in bed and is calm. Care providers, pharmacy, and demographics verified. Admitting dx: Pneumonia, COPD Exacerbation PCP: Terry Donnelly Specialists: Alannah Bazzi (Pulmonary), JOSE Preferred Pharmacy: [facility] Insurance: [email or web address] A/B, [facility] Prescription Benefit: Yes LNOK: Eloisa Casarez (Sister), Wayne Stark (XH) Living Arrangements: Pt lives with her disabled daughter, that she cares for, in a single story home with a basement and 2 steps to enter. Pt states that she does not use the basement. ADLs/IADLs: States independent Transportation: Pt states that she has been using [facility] transportation van. Pt states that her friend has also been providing transportation d/t her feet and ankle wounds. DME: Pt states that she has an old BGM at home. Pt states that she plans to follow up with her PCP regarding this. Pt denies current needs here for a BGM and supplies Rx. Pt reports that she has a Hx with [facility] for home O2. If pt qualifies for home oxygen, she will require a new set up. Pt states that she prefers to go through [facility] again for potential home oxygen needs. CM to follow. Pt also reports that she has a CPAP, FWW, Vest Oscillator, and Pulse Ox. HHC/SNF: Hx with [facility] HH. Hx at [facility] in 2017. Pt?s goal: Home Plan: Home with potential oxygen and f/u with the wound center. Pt reports that she is active with the wound center under Dr. Cavanaugh and wishes to DC home and continue this as an OP. Pt denies the need for HHC or SNF at this time. Pt states that she feels safe with this plan and denies further concerns. Stoney Daniels RN, CM
--- NOTE | 2023-08-04 11:33 | CASEMGMT ---
Social Work- Pt has HCPOA on chart naming Jess, sister, as primary agent. AFSHAN Panda
[2023-08-04 12:54] LABS: Hemoglobin A1c 5.5 % (3.8-5.6)
[2023-08-04 13:52] LABS: Mucous, Urine 0 SEEN /hpf (<or=2+); Red Blood Cells-Urine 0 SEEN /hpf (0-5)
[2023-08-04 13:55] LABS: Color, Urine Yellow (Yellow); Glucose, Dipstick Normal (Normal); Ketone-Dipstick Negative (Negative); Leukocyte Esterase-Dipstick 25 /ul (Negative); Nitrite-Dipstick Negative (Negative); Occult Blood-Urine Negative /ul (Negative); Protein-Dipstick Negative (Negative); Specific Gravity, Urine 1.015 (1.002-1.030); Urine Bilirubin Dipstick Negative (Negative); Urine Clarity Clear (Clear); Urine Urobilinogen Normal (Normal)
[2023-08-04 14:01] LABS: Bacteria 2+ /hpf (None Seen); Hyaline Cast 0-5 SEEN /lpf (0-5)
[2023-08-04 14:02] LABS: Renal Epithelial Cells 0-5 SEEN /hpf (0-5); Squamous Epithelial Cells - UA 0-5 SEEN /hpf (5-10); White Blood Cells 0-5 SEEN /hpf (0-5)
--- NOTE | 2023-08-04 15:28 | CHAPLAIN ---
Type of Pastoral Visit __x_ Initial Visit ___ Follow-up Visit ___ On-call Visit ___ General Patient Visit ___ Spiritual Assessment ___ Family Conference ___ Bereavement ___ Rapid Response ___ Code Blue ___ Other (describe below) Pastoral Care Referral From _x__ Patient ___ Family ___ Nurse ___ Physician ___ Police Worker ___ Tv Host ___ Other (describe below) Sacrament/Intervention _x__ Active listening ___ Anointing ___ Orthodoxy ___ Bereavement ___ Communion ___ Mary Ann exploration ___ ___ Life review _x__ Prayer ___ Reconciliation ___ Sacrament of Sick ___ Supportive presence ___ Wedding ___ Other (describe below) Pastoral Comments patient was trying to rest but was easily awakened to her name; pt says that a prayer would be all she needs as otherwise she is just hoping to rest; pt reveals that her bigger concern is for her daughter of whom I am her caregiver; daughter is not used to having her mother away from her and this is cause of concern for pt; a family member is caring for daughter at this time but this too is an unusual situation; prayer is given for both pt and daughter at this time
[2023-08-04 18:47] LABS: Bedside Glucose 182 mg/dL (74-106)
[2023-08-04] MEDS: Albuterol 2.5 MG/3 ML VIAL.NEB. INHALATION (20:16)
[2023-08-04] MEDS: Budesonide Respules 0.5 MG/2 ML AMPUL.NEB. INHALATION (20:16)
[2023-08-04] MEDS: Latanoprost 0.005% 1 Bottle 1 DRP OPHTHALMIC (20:32)
[2023-08-04] MEDS: Famotidine 20 MG Tablet 40 MG PO (20:33)
[2023-08-04] MEDS: Atorvastatin Calcium 10 MG Tablet PO (20:33)
[2023-08-04] MEDS: Montelukast 10 MG Tablet PO (20:33)
[2023-08-04 21:19] LABS: Bedside Glucose 170 mg/dL (74-106)
[2023-08-05] VITALS (8 sets, daily range): BP systolic 105–137; BP diastolic 57–87; PULSE 71–97; RESP 16–22; TEMP 36.1–36.6; O2SAT 97–98; BMI 42.9
[2023-08-05 06:15] LABS: Absolute Lymphocyte Count 0.67 X10^3/uL (0.83-4.51); Absolute Neutrophil Count 7.8 X10^3/uL (2.0-7.7); Basophil# 0.01 X10^3/uL; Basophil% 0.1 % (0-1); Hematocrit 37.5 % (37-47); Hemoglobin 11.2 g/dL (12.0-15.0); Lymphocyte # 0.67 X10^3/ul (0.83-4.51); Lymphocyte % 7.4 % (19-41); Mean Corp Hgb Conc 29.9 g/dL (32-36); Mean Corpuscular Hgb 29.6 pg (27.0-32.0); Mean Corpuscular Volume 99.2 fL (81-99); Mean Platelet Vol. 10.6 fl (6.2-12.0); Monocyte# 0.53 X10^3/uL; Monocyte% 5.9 % (0-10); NRBC Flagged by Analyzer 0 % (0-5); Neutrophil # 7.75 X10^3/uL (2.7-7.7); Platelet Count 261 K/mm3 (150-450); RBC Distribution Width CV 13.9 % (11.6-14.6); RBC Distribution Width SD 50.1 fl (35.1-43.9); Red Blood Count 3.78 M/mm3 (4.2-5.4)
[2023-08-05] MEDS: Levothyroxine 25 MCG TABLET PO (06:35)
[2023-08-05 06:39] LABS: ALB/GLOB Ratio 0.7 RATIO (0.9-2.4); AST(SGOT) 12 U/L (15-37); Alanine Aminotransfer ALT/SGPT 16 U/L (13-56); Albumin, Serum 2.9 g/dL (3.2-5.0); Alkaline Phosphatase 82 U/L (45-117); Anion Gap 10 (5-15); BUN 31 mg/dL (7-18); BUN/Creat Ratio 24.2 RATIO (10-20); Calcium,Total 9.5 mg/dL (8.5-10.1); Chloride 112 mmol/L (98-107); Creatinine, Serum 1.28 mg/dL (0.55-1.02); EST Glomerular Filtration Rate 44 mL/min (>60); Est Glom Filt Rate - Afr Amer 53 mL/min (>60); Estimated Creatinine Clearance 45.79 ml/min; Globulin 4.4 g/dL (2.2-4.2); Glucose 156 mg/dL (74-106); Magnesium 2.3 mg/dL (1.6-2.6); Phosphorus 2.9 mg/dL (2.5-4.9); Potassium 4.1 mmol/L (3.5-5.1); Protein, Total 7.3 g/dL (6.4-8.2); Sodium Level 143 mmol/L (136-145)
[2023-08-05 06:55] LABS: Bedside Glucose 128 mg/dL (74-106)
[2023-08-05] MEDS: Albuterol 2.5 MG/3 ML VIAL.NEB. INHALATION ×3 (07:13→19:43)
[2023-08-05] MEDS: Budesonide Respules 0.5 MG/2 ML AMPUL.NEB. INHALATION ×2 (07:13→19:43)
[2023-08-05] MEDS: Potassium Chloride Oral Tablet 20 MEQ PO ×2 (08:19→17:01)
[2023-08-05] MEDS: Ascorbic Acid 500 MG Tablet 1000 MG PO ×2 (08:19→17:01)
[2023-08-05] MEDS: Ferrous Sulfate 325 MG Tablet PO (08:19)
[2023-08-05] MEDS: Acetaminophen 325 MG Tablet 650 MG PO ×2 (08:20→20:37)
--- NOTE | 2023-08-05 09:21 | PN.HOSP_ITS ---
Subjective Subjective Feels better than when she came in. No issues overnight Objective Data Objective Data Vital Signs: Vital Signs Temp Pulse Resp BP Pulse Ox O2 Del Method O2 Flow Rate 97.8 F 71 17 137/63 H 98 Nasal Cannula 2 08/05/23 03:00 08/05/23 07:15 08/05/23 07:15 08/05/23 03:00 08/05/23 03:00 08/05/23 08:16 08/05/23 08:16 Oxygen Flow Rate (L/min) 2 Oxygen Delivery Method Nasal Cannula Weight: 227 lb 4.745 oz Body Mass Index (BMI) 42.9 Intake & Output: Intake and Output for Last 24 Hours 08/04/23 08/05/23 08/06/23 03:59 03:59 03:59 Intake Total 1439.83 / 1439.83 Output Total 350 / 350 Balance 1089.83 / 1089.83 Lab / Micro Data 08/05/23 05:51 08/05/23 05:51 Labs: Laboratory Results - last 24 hr 08/04/23 09:00: Hemoglobin A1c 5.5, TSH 4.33 H 08/04/23 09:09: POC Glucose 174 H 08/04/23 13:38: Urine Color Yellow, Urine Clarity Clear, Urine pH 6.0, Ur Specific Toxey 1.015, Urine Protein Negative, Urine Glucose (UA) Normal, Urine Ketones Negative, Urine Occult Blood Negative, Urine Nitrite Negative, Urine Bilirubin Negative, Urine Urobilinogen Normal, Ur Leukocyte Esterase 25 H, Urine RBC 0 SEEN, Urine WBC 0-5 SEEN, Ur Squamous Epith Cells 0-5 SEEN, Ur Renal Epithelial Cell 0-5 SEEN, Urine Bacteria 2+, Hyaline Casts 0-5 SEEN, Urine Mucus 0 SEEN 08/04/23 15:26: POC Glucose 182 H 08/04/23 20:56: POC Glucose 170 H 08/05/23 05:51: WBC 9.0, RBC 3.78 L, Hgb 11.2 L, Hct 37.5, MCV 99.2 H, MCH 29.6, MCHC 29.9 L, RDW Std Deviation 50.1 H, RDW Coeff of Lanre 13.9, Plt Count 261, MPV 10.6, Immature Gran % (Auto) 0.600, Neut % (Auto) 86.0 H, Lymph % (Auto) 7.4 L, [place]idan % (Auto) 5.9, Eos % (Auto) 0.0, Baso % (Auto) 0.1, Absolute Neuts (auto) 7.8 H, Absolute Lymphs (auto) 0.67 L, Nucleated RBC % 0, Sodium 143, Potassium 4.1, Chloride 112 H, Carbon Dioxide 21.0, Anion Gap 10, BUN 31 H, Creatinine 1.28 H, Estim Creat Clear Calc 45.79, Est GFR (MDRD) Af Amer 53 L, Est GFR (MDRD) Non-Af 44 L, BUN/Creatinine Ratio 24.2 H, Glucose 156 H, Calcium 9.5, Phosphorus 2.9, Magnesium 2.3, Total Bilirubin 0.30, AST 12 L, ALT 16, Alkaline Phosphatase 82, Total Protein 7.3, Albumin 2.9 L, Globulin 4.4 H, A lbumin/Globulin Ratio 0.7 L 08/05/23 06:37: POC Glucose 128 H Micro: Microbiology 08/04/23 02:00 Mucosa - Nose SARS-CoV-2, Influenza & RSV (PCR) - Final Radiography Diagnostic Testing: Radiology Impression Chest CT 08/04/23 04:00 IMPRESSION: 1. Left lower lobe pneumonia. 2. Mild atelectasis in the lower lung manzano bilaterally. 3. Bronchiectasis, most prominent in the left lower lobe. Suggestion of pulmonary hypertension. 4. Bilateral upper lobe lung nodules have not increased in size since the 2018 exam. No further evaluation is necessary. 5. Atherosclerosis. Electronically Signed: Archie Bowers MD at 6:03 EDT Reading Location ID and State: [facility] / [place] , Service support , Physical Exam Narrative General: Alert, Oriented x3, Cooperative, No apparent distress HEENT: Atraumatic, PERRLA, EOMI, Normocephalic Oral: Moist Mucosa Neck: Supple, No JVD Lungs: Diminished, Normal air movement, No rhonchi, slight wheeze, No rales Cardiovascular: Regular rate, Regular Rhythm, Normal S1, Normal S2, No murmurs Abdomen: Soft, Non Tender, Non-Distended, No Hepato-splenomegaly Extremities: No edema, Capillary Refill Less than 3 Seconds Skin: No rashes, No breakdown Musculoskeletal: No Tenderness to Palpation of Joints or Extremities Neurological: No focal neurological deficits, Motor Exam 5/5 strength throughout, Sensory exam intact to light touch and pain Psych/Mental Status: Normal Affect, Appropriate Assessment & Plan Assessment/Plan (1) Pneumonia: QUALIFIERS: Pneumonia type: due to unspecified organism L aterality: right Lung location: lower lobe of lung Qualified Code(s): J18.9 - Pneumonia, unspecified organism (2) Respiratory insufficiency: (3) Non-pressure chronic ulcer of right ankle with fat layer exposed: (4) director long term care current use of antiarrhythmic medical therapy: (5) PAF (paroxysmal atrial fibrillation): (6) Morbid obesity with BMI of 40.0-44.9, adult: (7) GAGAN (obstructive sleep apnea): PLAN: Plan 1. Right lower lobe pneumonia/asthma versus COPD ? Continue with antibiotics ? Sputum cultures pending 1. RLL Pneumonia in the setting of remote tobacco abuse (quit 1975) with subsequent COPD - Admit to general medical floor. Continue broad-spectrum antibiotics and await culture and sensitivity data. Give Tylenol prn pain or fever. Finally, we will consult Dr. Bazzi of the pulmonary service see this patient on rounds in the a.m. for further recommendations at patient request due to her recurrent Right lung infections in spite of appropriate and aggressive treatment with help appreciated in advance.. 2. Respiratory insufficiency due to #1 - Wean supplemental oxygen as tolerated. 3. Morbid Obesity; with BMI of 43 this admission with GAGAN complicating #1 & #2 - Weight loss will be recommended. Check TSH. Continue on Semaglutide as before. Continue nocturnal CPAP. 4. Chronic non-pressure venous ulcer of the Right ankle; with history of debridement and vein stripping with history of MRSA [facility] here compounding #1 - #4 - Stable. place on contact isolation. Wound RN to see patient on-rounds in the AM for further recommendations with help appreciated in advance. 5. History of steroid myopathy compounding #1 - #4 - We will minimize and attempt to avoid further steroids if at all possible in an effort to prevent recurrence of myopathy. 6. Essential hypertension - Continue home medications plus give IV Hydralazine prn for systolic blood pressure > 160 mmHg. 7. Hyperlipidemia - Resume statin as previous. 8. Hypothyroidism - Continue Levothyroxine and check TSH. 9. DM-2; of unknown control - ADA diet. FSBS q. AC/HS plus SSI. Check HgbA1C to objectively assess quality of diabetic control. 10. PAF; on Cardizem and Eliquis - Home regimen to continue unchanged. 11. History of VTE - Patient already on Eliquis for #10. 12. History of DCCV (2016) - Noted. 12. Chronic anemia - Stable. 13. Glaucoma - Continue eye drops as previous. 14. History of Right shoulder fracture (2009), - Noted. 15. OA; s/p bilateral THR's with back/neck pain - Give Tylenol prn. 16. DVT prophylaxis - Patient already on Eliquis for #10 which will be continued. Total time: Approximately 75 minutes.
--- NOTE | 2023-08-05 09:21 | PCM.PN.HOSP ---
Subjective Subjective Feels better than when she came in. No issues overnight Objective Data Objective Data Vital Signs: Vital Signs Temp Pulse Resp BP Pulse Ox O2 Del Method O2 Flow Rate 97.8 F 71 17 137/63 H 98 Nasal Cannula 2 08/05/23 03:00 08/05/23 07:15 08/05/23 07:15 08/05/23 03:00 08/05/23 03:00 08/05/23 08:16 08/05/23 08:16 Oxygen Flow Rate (L/min) 2 Oxygen Delivery Method Nasal Cannula Weight: 227 lb 4.745 oz Body Mass Index (BMI) 42.9 Intake & Output: Intake and Output for Last 24 Hours 08/04/23 08/05/23 08/06/23 03:59 03:59 03:59 Intake Total 1439.83 / 1439.83 Output Total 350 / 350 Balance 1089.83 / 1089.83 Lab / Micro Data 08/05/23 05:51 08/05/23 05:51 Labs: Laboratory Results - last 24 hr 08/04/23 09:00: Hemoglobin A1c 5.5, TSH 4.33 H 08/04/23 09:09: POC Glucose 174 H 08/04/23 13:38: Urine Color Yellow, Urine Clarity Clear, Urine pH 6.0, Ur Specific Shushan 1.015, Urine Protein Negative, Urine Glucose (UA) Normal, Urine Ketones Negative, Urine Occult Blood Negative, Urine Nitrite Negative, Urine Bilirubin Negative, Urine Urobilinogen Normal, Ur Leukocyte Esterase 25 H, Urine RBC 0 SEEN, Urine WBC 0-5 SEEN, Ur Squamous Epith Cells 0-5 SEEN, Ur Renal Epithelial Cell 0-5 SEEN, Urine Bacteria 2+, Hyaline Casts 0-5 SEEN, Urine Mucus 0 SEEN 08/04/23 15:26: POC Glucose 182 H 08/04/23 20:56: POC Glucose 170 H 08/05/23 05:51: WBC 9.0, RBC 3.78 L, Hgb 11.2 L, Hct 37.5, MCV 99.2 H, MCH 29.6, MCHC 29.9 L, RDW Std Deviation 50.1 H, RDW Coeff of Lanre 13.9, Plt Count 261, MPV 10.6, Immature Gran % (Auto) 0.600, Neut % (Auto) 86.0 H, Lymph % (Auto) 7.4 L, [place] % (Auto) 5.9, Eos % (Auto) 0.0, Baso % (Auto) 0.1, Absolute Neuts (auto) 7.8 H, Absolute Lymphs (auto) 0.67 L, Nucleated RBC % 0, Sodium 143, Potassium 4.1, Chloride 112 H, Carbon Dioxide 21.0, Anion Gap 10, BUN 31 H, Creatinine 1.28 H, Estim Creat Clear Calc 45.79, Est GFR (MDRD) Af Amer 53 L, Est GFR (MDRD) Non-Af 44 L, BUN/Creatinine Ratio 24.2 H, Glucose 156 H, Calcium 9.5, Phosphorus 2.9, Magnesium 2.3, Total Bilirubin 0.30, AST 12 L, ALT 16, Alkaline Phosphatase 82, Total Protein 7.3, Albumin 2.9 L, Globulin 4.4 H, Albumin/Globulin Ratio 0.7 L 08/05/23 06:37: POC Glucose 128 H Micro: Microbiology 08/04/23 02:00 Mucosa - Nose SARS-CoV-2, Influenza & RSV (PCR) - Final Radiography Diagnostic Testing: Radiology Impression Chest CT 08/04/23 04:00 IMPRESSION: 1. Left lower lobe pneumonia. 2. Mild atelectasis in the lower lung manzano bilaterally. 3. Bronchiectasis, most prominent in the left lower lobe. Suggestion of pulmonary hypertension. 4. Bilateral upper lobe lung nodules have not increased in size since the 2018 exam. No further evaluation is necessary. 5. Atherosclerosis. Electronically Signed: Archie Bowers MD at 6:03 EDT Reading Location ID and State: [facility] / [place] , Service support , Physical Exam Narrative General: Alert, Oriented x3, Cooperative, No apparent distress HEENT: Atraumatic, PERRLA, EOMI, Normocephalic Oral: Moist Mucosa Neck: Supple, No JVD Lungs: Diminished, Normal air movement, No rhonchi, slight wheeze, No rales Cardiovascular: Regular rate, Regular Rhythm, Normal S1, Normal S2, No murmurs Abdomen: Soft, Non Tender, Non-Distended, No Hepato-splenomegaly Extremities: No edema, Capillary Refill Less than 3 Seconds Skin: No rashes, No breakdown Musculoskeletal: No Tenderness to Palpation of Joints or Extremities Neurological: No focal neurological deficits, Motor Exam 5/5 strength throughout, Sensory exam intact to light touch and pain Psych/Mental Status: Normal Affect, Appropriate Assessment & Plan Assessment/Plan (1) Pneumonia: QUALIFIERS: Laterality: right Lung location: lower lobe of lung Pneumonia type: due to unspecified organism Qualified Code(s): J18.9 - Pneumonia, unspecified organism (2) Respiratory insufficiency: (3) Non-pressure chronic ulcer of right ankle with fat layer exposed: (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 Right lower lobe pneumonia with hypoxia/asthma versus COPD ? Continue with antibiotics ? Sputum cultures pending ?She is concerned about potentially starting steroids secondary to a history of steroid-induced myopathy therefore if there is no improvement in the next 24 hours may need to start a low-dose prednisone for a week 2. Essential HTN/HLD/paroxysmal A-fib ? Blood pressure stable ? Continue her home medications ? Continue with her Eliquis ? We will monitor her kidney function given her twice daily Lasix 3. DM2 ? Continue with sliding scale insulin ? Accu-Cheks ACHS ? We will monitor make adjustments as necessary ? A1c 5.5% 4. Iron deficiency anemia ? Stable ? Continue with iron replacement 5. Hypothyroidism ? Stable ? Continue with Synthroid DVT: Eliquis Charges/Coding Visit Charges Inpatient E&M: 07690 Subs Hosp L2
[2023-08-05] MEDS: APIXABAN 5 MG TABLET PO ×2 (10:34→22:33)
[2023-08-05] MEDS: dilTIAZem CD 180 MG Capsule PO (10:34)
[2023-08-05] MEDS: Pantoprazole Sodium 40 MG Tablet PO (10:34)
[2023-08-05] MEDS: Furosemide 40 MG Tablet PO ×2 (10:34→17:01)
[2023-08-05] MEDS: guaiFENesin 1,200 MG Tablet 1200 MG PO ×2 (10:34→22:33)
[2023-08-05] MEDS: Cholecalciferol (VIT D3) 25 MCG TABLET (1,000 UNITS) 50 MCG PO (10:34)
[2023-08-05] MEDS: Zinc Sulfate 50 mg zinc (220 mg) ORAL capsule PO (10:34)
[2023-08-05] MEDS: Lactobacillis Acidophilus 2 CAP PO ×2 (10:34→22:32)
[2023-08-05 12:24] LABS: Bedside Glucose 120 mg/dL (74-106)
[2023-08-05] MEDS: Insulin Lispro 100 UNIT/ML INSULN.PEN SC (17:00)
[2023-08-05 17:25] LABS: Bedside Glucose 172 mg/dL (74-106)
[2023-08-05] MEDS: Montelukast 10 MG Tablet PO (22:33)
[2023-08-05] MEDS: Famotidine 20 MG Tablet 40 MG PO (22:33)
[2023-08-05] MEDS: Atorvastatin Calcium 10 MG Tablet PO (22:33)
[2023-08-05] MEDS: Nystatin Powder 15gm Bottle 1 APPLIC TOPICAL (22:33)
[2023-08-05] MEDS: Latanoprost 0.005% 1 Bottle 1 DRP OPHTHALMIC (22:33)
[2023-08-05] MEDS: 0.9% Saline Lock 10 ML Syringe IV (22:58)
[2023-08-05 23:34] LABS: Bedside Glucose 124 mg/dL (74-106)
[2023-08-06 04:00] VITALS: BP 107/70; PULSE 101; RESP 18; TEMP 35.8; O2SAT 97
[2023-08-06 04:30] VITALS: BP 107/70; PULSE 101; RESP 18; TEMP 35.8; O2SAT 97
[2023-08-06] MEDS: Levothyroxine 25 MCG TABLET PO (05:14)
[2023-08-06] MEDS: Nystatin Powder 15gm Bottle 1 APPLIC TOPICAL (05:16)
[2023-08-06 05:28] VITALS: PULSE 92; RESP 20; O2SAT 96
[2023-08-06] MEDS: Albuterol 2.5 MG/3 ML VIAL.NEB. INHALATION ×2 (05:31→07:12)
[2023-08-06 06:00] VITALS: BMI 43.5
[2023-08-06 06:54] LABS: Bedside Glucose 93 mg/dL (74-106)
[2023-08-06 07:10] LABS: Absolute Lymphocyte Count 1.87 X10^3/uL (0.83-4.51); Absolute Neutrophil Count 5.5 X10^3/uL (2.0-7.7); Basophil# 0.02 X10^3/uL; Basophil% 0.2 % (0-1); Eosinophil# 0.24 X10^3/uL; Eosinophils% 2.9 % (0-5); Hematocrit 34.2 % (37-47); Hemoglobin 10.3 g/dL (12.0-15.0); Lymphocyte # 1.87 X10^3/ul (0.83-4.51); Lymphocyte % 22.4 % (19-41); Mean Corp Hgb Conc 30.1 g/dL (32-36); Mean Corpuscular Hgb 29.9 pg (27.0-32.0); Mean Corpuscular Volume 99.4 fL (81-99); Mean Platelet Vol. 10.5 fl (6.2-12.0); Monocyte% 7.2 % (0-10); NRBC Flagged by Analyzer 0 % (0-5); Neutrophil # 5.53 X10^3/uL (2.7-7.7); Neutrophil % 66.5 % (47-70); Platelet Count 278 K/mm3 (150-450); RBC Distribution Width CV 14.4 % (11.6-14.6); RBC Distribution Width SD 51.9 fl (35.1-43.9); Red Blood Count 3.44 M/mm3 (4.2-5.4); White Blood Count 8.3 K/mm3 (4.4-11.0)
[2023-08-06 07:12] VITALS: PULSE 88; RESP 20; O2SAT 97
[2023-08-06] MEDS: Budesonide Respules 0.5 MG/2 ML AMPUL.NEB. INHALATION (07:12)
[2023-08-06 07:34] LABS: Anion Gap 6 (5-15); BUN 37 mg/dL (7-18); BUN/Creat Ratio 27.6 RATIO (10-20); Calcium,Total 9.2 mg/dL (8.5-10.1); Chloride 111 mmol/L (98-107); Creatinine, Serum 1.34 mg/dL (0.55-1.02); EST Glomerular Filtration Rate 42 mL/min (>60); Est Glom Filt Rate - Afr Amer 50 mL/min (>60); Estimated Creatinine Clearance 44.09 ml/min; Glucose 100 mg/dL (74-106); Potassium 3.8 mmol/L (3.5-5.1); Sodium Level 141 mmol/L (136-145)
[2023-08-06 07:43] VITALS: BP 161/77; PULSE 96; RESP 18; TEMP 36.6; O2SAT 98
[2023-08-06] MEDS: Potassium Chloride Oral Tablet 20 MEQ PO (07:54)
[2023-08-06] MEDS: Ferrous Sulfate 325 MG Tablet PO (07:54)
[2023-08-06] MEDS: Ascorbic Acid 500 MG Tablet 1000 MG PO (07:54)
[2023-08-06] MEDS: Lactobacillis Acidophilus 2 CAP PO (09:27)
[2023-08-06] MEDS: dilTIAZem CD 180 MG Capsule PO (09:28)
[2023-08-06] MEDS: APIXABAN 5 MG TABLET PO (09:28)
[2023-08-06] MEDS: Furosemide 40 MG Tablet PO (09:28)
[2023-08-06] MEDS: guaiFENesin 1,200 MG Tablet 1200 MG PO (09:29)
[2023-08-06] MEDS: Cholecalciferol (VIT D3) 25 MCG TABLET (1,000 UNITS) 50 MCG PO (09:29)
[2023-08-06] MEDS: Pantoprazole Sodium 40 MG Tablet PO (09:29)
[2023-08-06] MEDS: Zinc Sulfate 50 mg zinc (220 mg) ORAL capsule PO (09:30)
[2023-08-06 09:34] VITALS: O2SAT 95; O2SAT 98
--- NOTE | 2023-08-06 10:40 | DCINST_ITS ---
Discharge Instructions Diet Discharge Diet: Low fat / Low cholesterol and Carb Control Diet Activity Discharge Activity: Return to Normal Activity Dressing / Incision Call your doctor if you observe: Fever of 101 or Higher, Shortness of breath, Dizziness, Fainting spells, Swelling in the ankles, Chest pain and Increased palpitations (irregular heartbeat) Follow Up Care Test Results: Test results from this visit will be discussed in further detail at your follow- up appointment, if applicable. Discharge Plan Admission Admit Date/Time: 08/04/23 06:43 Attending Provider: Rolo Mcgarry Primary Care Provider: Terry Donnelly Consulting Providers: Ottoniel Solis Instructions Additional Instructions / Restrictions: The organism growing is resistant to multiple medications and the only medications available are the ones that you have had reactions to in the past. Cefdinir is less likely to cause issues than Bactrim so we will continue with that antibiotic for 7 days as discussed. Discharge Orders/Prescriptions Prescriptions: New prednisone 20 mg Tablet 40 mg PO BREAKFAST 7 Days Qty: 14 0RF cefdinir 300 mg Capsule 300 mg PO Q12 7 Days Qty: 14 0RF Continued famotidine 40 mg tablet 40 mg PO QHS esomeprazole magnesium [Nexium] 40 mg capsule,delayed release(DR/EC) 40 mg PO DAILY potassium chloride 20 mEq tablet,ER particles/crystals 20 meq PO BID fluticasone propion-salmeterol [Advair HFA] 230-21 mcg/actuation HFA aerosol inhaler 2 puff INHALATION BID Qty: 3 3RF montelukast [Singulair] 10 mg tablet 10 mg PO QHS Qty: 90 3RF semaglutide (weight loss) 0.5 mg/0.5 mL pen injector 0.5 mg subcut QWEEK Rx Instructions: administer weeks 5 through 8 of therapy latanoprost 0.005 % drops 1 drp ophthalmic (eye) QPM Rx Instructions: BOTH EYES ipratropium bromide 42 mcg (0.06 %) spray,non-aerosol 2 spray intranasal TID PRN (Reason: DRY NOSE) levothyroxine 25 mcg tablet 25 mcg PO DAILY@0600 Patient Comments: thyroid furosemide [Lasix] 40 mg tablet 40 mg PO BID cholecalciferol (vitamin D3) 50 mcg (2,000 unit) Capsule 50 mcg PO DAILY ferrous sulfate 325 MG tablet 325 mg PO DAILY Rx Instructions: Take 1 hour before doxycycline or in empty stomach while patient is on doxycycline to avoid drug drug interaction. acetaminophen 500 mg tablet 1,000 mg PO Q8 PRN (Reason: pain of temp > 101) Qty: 0 0RF albuterol sulfate 2.5 mg /3 mL (0.083 %) solution for nebulization 2.5 mg INHALATION Q4H PRN Qty: 180 6RF Rx Instructions: Use q4 hours and PRN for wheezing atorvastatin 10 mg tablet 10 mg PO QHS Qty: 90 3RF Eliquis 5 mg tablet 5 mg PO BID Qty: 180 3RF diltiazem HCl [Cardizem CD] 180 mg capsule,extended release 24hr 180 mg PO DAILY Qty: 90 3RF Rx Instructions: Hold for heart less than 60 or systolic blood pressure less than 100 mmHg. albuterol sulfate [Ventolin HFA] 90 mcg/actuation HFA aerosol inhaler 2 puff inhalation Q4H PRN (Reason: shortness of breath or wheezing) Qty: 1 3RF Referrals / Follow Up: Terry Donnelly MD [Primary Care Provider] - Within 1 Week Pete Bazzi DO [Med Staff - Active Staff] - Within 1 Month Disposition Disposition (needs filled in before D/C Order can be placed): Home, Self Care
--- NOTE | 2023-08-06 10:44 | DS.PCM_ITS ---
Providers Date of Admission: 08/04/23 Primary Care Physician: Dr. Terry Donnelly MD Consultations 08/04/23 08:09 Consult: Hull Grinder / Pulmonary Medicine Routine Consulting Provider: Intensivists/Pulmonary Med Reason for Consult: RLL PNA and COPD; patient followed by Dr. Jluis figueroa. EMERGENT Consult: No MD Notified: No Date Notified: 08/04/23 Time Notified: 07:07 Consult: Onc/Wound/family service worker Routine Comment: Reason for Consult:: Chronic Right Ankle Wound Reason For Visit: PNEUMONIA, COPD EXACERBATION Diagnosis Discharge Diagnosis (1) Pneumonia: Status: Acute Code(s): J18.9 - Pneumonia, unspecified organism Qualifiers: Pneumonia type: due to unspecified organism Laterality: right Lung location: lower lobe of lung Qualified Code(s): J18.9 - Pneumonia, unspecified organism (2) Respiratory insufficiency: Status: Acute Code(s): R06.89 - Other abnormalities of breathing (3) Non-pressure chronic ulcer of right ankle with fat layer exposed: Status: Chronic Code(s): L97.312 - Non-pressure chronic ulcer of right ankle with fat layer exposed (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: Status: Acute Code(s): Z79.899 - Other extermination inspector (current) drug therapy (5) PAF (paroxysmal atrial fibrillation): Status: Acute Code(s): I48.0 - Paroxysmal atrial fibrillation (6) Morbid obesity with BMI of 40.0-44.9, adult: Status: Acute Code(s): E66.01 - Morbid (severe) obesity due to excess calories; Z68.41 - Body mass index [BMI] 40.0-44.9, adult (7) GAGAN (obstructive sleep apnea): Status: Acute Code(s): G47.33 - Obstructive sleep apnea (adult) (pediatric) Medications at Discharge Home Medications levothyroxine 25 mcg tablet 25 mcg PO DAILY@0600 thyroid 01/04/20 famotidine 40 mg tablet 40 mg PO QHS reflux 04/02/20 cholecalciferol (vitamin D3) 50 mcg (2,000 unit) capsule 50 mcg PO DAILY SUPPLEMENT 09/19/20 furosemide 40 mg tablet (Lasix) 40 mg PO BID water pill 09/19/20 esomeprazole magnesium 40 mg capsule,delayed release (Nexium) 40 mg PO DAILY reflux 10/13/20 potassium chloride 20 mEq tablet,extended release(part/cryst) 20 meq PO BID supplement 10/13/20 ferrous sulfate 325 mg (65 mg iron) tablet 325 mg PO DAILY anemia 06/26/21 acetaminophen 500 mg tablet 1,000 mg (2 x 500 mg) PO Q8 PRN pain of temp > 101 #0 tabs 07/14/21 albuterol sulfate 2.5 mg/3 mL (0.083 %) solution for nebulization 2.5 mg (3 mL) inhalation Q4H PRN breathing #180 vials 05/17/22 fluticasone propionate 230 mcg-salmeterol 21 mcg/actuation HFA inhaler (Advair HFA) 2 puff inhalation BID lungs #3 ea 12/10/22 montelukast 10 mg tablet (Singulair) 10 mg PO QHS asthma #90 tabs 12/10/22 atorvastatin 10 mg tablet 10 mg PO QHS cholesterol #90 tabs 12/21/22 apixaban 5 mg tablet (Eliquis) 5 mg PO BID anticoagulant #180 tabs 02/28/23 diltiazem HCl 180 mg capsule,extended release 24 hr (Cardizem CD) 180 mg PO DAILY heart #90 caps 02/28/23 ipratropium bromide 42 mcg (0.06 %) nasal spray 2 spray intranasal TID PRN DRY NOSE 03/10/23 latanoprost 0.005 % eye drops 1 drp ophthalmic (eye) QPM 03/10/23 albuterol sulfate 90 mcg/actuation aerosol inhaler (Ventolin HFA) 2 puff inhalation Q4H PRN shortness of breath or wheezing #1 ea 06/21/23 semaglutide (weight loss) 0.5 mg/0.5 mL subcutaneous pen injector 0.5 mg subcut QWEEK 07/19/23 cefdinir 300 mg capsule 300 mg PO Q12 7 days #14 caps 08/06/23 prednisone 20 mg tablet 40 mg (2 x 20 mg) PO BREAKFAST 7 days #14 tabs 08/06/23 Hospital Course Operations None Procedures None Summary of Care Provided Minutes Spent on Discharge: 33 Hospital Course: Per HPI: LAURA STARK, is a 68 F with a past medical history of essential hypertension, hyperlipidemia, hypothyroidism, morbid obesity; with BMI of 43 this admission on Semaglutide, GAGAN, DM-2; of unknown control, PAF; on Cardizem and Eliquis, history of VTE, history of DCCV (2016), history of previous tobacco abuse (quit 1975); with subsequent asthma/COPD with recent bout of Pneumonia with cavitation in the Right lung due to Pseudomonas in April and May of this year plus additional history of previous Right MRSA Pneumonia followed by Dr. Bazzi of the pulmonology service, chronic non-pressure venous ulcer of the Right ankle; with history of debridement and vein stripping with recent skin graft [facility], chronic anemia, glaucoma, history of foot surgery, history of Right shoulder fracture (2009), OA; s/p bilateral THR's with back/neck pain and numerous drug allergies; including to steroids for myopathy who presents to [facility] ER complaining of fevers, SOB and cough. Ms. Stark reports her symptoms began approximately one week prior to admission with the gradual-onset of HAWTHORNE that progressed to SOB at rest. She also admits to frequent minimally productive cough with associated anterior and posterior Left rib cage pain that has worsened as her illness has progressed. She was also noted to have a fever of ~102 degrees Fahrenheit with malaise and fatigue so he finally decided to come in for further evaluation and treatment. She denies associated nausea, vomiting, palpitations, heart racing, diaphoresis, near-syncope or syncope but she would like to have Dr. Bazzi consulted on her case this admission since her recurrent right lung infections seem to be continuing in spite of appropriate and aggressive treatment. In the ER she was noted to have x-ray evidence of Right lower lobe infiltrate consistent with pneumonia complicated by clinical evidence of respiratory insufficiency but without evidence of severe wheezing and AE COPD at this time (with patient very desirous to minimize steroid exposure due to previous steroid induced myopathy) and she was then admitted to the general medical floor for ongoing care for stay that is expected to extend beyond 2 midnights. Hospital Course: 1. Right lower lobe pneumonia secondary to E. coli with hypoxia/asthma versus COPD?68-year-old female presented to the hospital with increasing shortness of breath and was found to have a right lower lobe infiltrate. Sputum cultures are growing E. coli which is resistant to fluoroquinolones. She does have multiple allergies to medications however the only oral medications available are ones that she has had reactions to in the past. Will proceed with cefdinir 300 mg p.o. twice daily for 7 days and monitor her reactions at home if any. She also requested to be on prednisone despite having an history of prednisone induced myopathy so we will proceed with prednisone 40 mg p.o. daily for 7 days. I discussed the plan for discharge today and she expressed understanding the risk and benefits of going home and would like to go home today. She did have an ambulatory pulse ox which did not demonstrate need for oxygen. I did discuss with her the need to proceed with her inhalers at home every 4-6 hours for the next couple of days. 2. Essential hypertension, hyperlipidemia, paroxysmal A-fib, type 2 diabetes, iron deficiency anemia, hypothyroidism are all chronic medical conditions which complicate her care. Her home medications were continued where appropriate. Physical Exam Narrative General: Alert, Oriented x3, Cooperative, No apparent distress HEENT: Atraumatic, PERRLA, EOMI, Normocephalic Oral: Moist Mucosa Neck: Supple, No JVD Lungs: Diminished, Normal air movement, bilateral rhonchi and wheezing, No rales Cardiovascular: Regular rate, Regular Rhythm, Normal S1, Normal S2, No murmurs Abdomen: Soft, Non Tender, Non-Distended, No Hepato-splenomegaly Extremities: No edema, Capillary Refill Less than 3 Seconds Skin: No rashes, No breakdown Musculoskeletal: No Tenderness to Palpation of Joints or Extremities Neurological: No focal neurological deficits, Motor Exam 5/5 strength throughout, Sensory exam intact to light touch and pain Psych/Mental Status: Normal Affect, Appropriate Weight / BMI Weight Weight: 230 lb 6.129 oz Body Mass Index (BMI) 43.5 ABG / Lab / Microbiology Data 08/06/23 06:45 08/06/23 06:45 Laboratory: Laboratory Results - last 24 hr 08/05/23 12:07: POC Glucose 120 H 08/05/23 16:56: POC Glucose 172 H 08/05/23 22:42: POC Glucose 124 H 08/06/23 06:36: POC Glucose 93 08/06/23 06:45: WBC 8.3, RBC 3.44 L, Hgb 10.3 L, Hct 34.2 L, MCV 99.4 H, MCH 29.9, MCHC 30.1 L, RDW Std Deviation 51.9 H, RDW Coeff of Lanre 14.4, Plt Count 278, MPV 10.5, Immature Gran % (Auto) 0.800, Neut % (Auto) 66.5, Lymph % (Auto) 22.4, [place] % (Auto) 7.2, Eos % (Auto) 2.9, Baso % (Auto) 0.2, Absolute Neuts (auto) 5.5, Absolute Lymphs (auto) 1.87, Nucleated RBC % 0, Sodium 141, Potassium 3.8, Chloride 111 H, Carbon Dioxide 24.0, Anion Gap 6, BUN 37 H, C reatinine 1.34 H, Estim Creat Clear Calc 44.09, Est GFR (MDRD) Af Amer 50 L, Est GFR (MDRD) Non-Af 42 L, BUN/Creatinine Ratio 27.6 H, Glucose 100, Calcium 9.2 Microbiology: Microbiology 08/04/23 14:12 Sputum, Expectorated/Coughed Gram Stain - Final 08/04/23 14:12 Sputum, Expectorated/Coughed Respiratory Culture - Final Escherichia coli 08/04/23 02:00 Mucosa - Nose SARS-CoV-2, Influenza & RSV (PCR) - Final D/C Instructions Discharge Diet: Low fat / Low cholesterol and Carb Control Diet Call your doctor if you observe: Fever of 101 or Higher, Shortness of breath, Dizziness, Fainting spells, Swelling in the ankles, Chest pain and Increased palpitations (irregular heartbeat) Meaningful Use Info Meaningful Use Meaningful Use Diagnoses (Choose all that apply): None applicable Ischemic Stroke Statin Dosing Therapy Reference: STATIN DOSE THERAPY REFERENCE: * Patients > 75 years receive moderate or high dose statin therapy. * Patients 75 years or YOUNGER should receive HIGH intensity statin dose unless contraindicated. You will be required to document reason for non-treatment if statin daily dose does not meet guidelines. HIGH DOSE STATIN THERAPY DAILY Atorvastatin > than or = to 40 mg Rosuvastatin > than or = to 20 mg Amlodipine + Atorvastatin > than or = to 2.5/40 mg Ezetimibe + Simvastatin 10/80 mg Simvastatin 80mg Discharge Plan Admission Admit Date/Time: 08/04/23 06:43 Attending Provider: Rolo Mcgarry Primary Care Provider: Terry Donnelly Consulting Providers: Ottoniel Solis Instructions Additional Instructions / Restrictions: The organism growing is resistant to multiple medications and the only medications available are the ones that you have had reactions to in the past. Cefdinir is less likely to cause issues than Bactrim so we will continue with that antibiotic for 7 days as discussed. Discharge Orders/Prescriptions Prescriptions: New prednisone 20 mg Tablet 40 mg PO BREAKFAST 7 Days Qty: 14 0RF cefdinir 300 mg Capsule 300 mg PO Q12 7 Days Qty: 14 0RF Continued famotidine 40 mg tablet 40 mg PO QHS esomeprazole magnesium [Nexium] 40 mg capsule,delayed release(DR/EC) 40 mg PO DAILY potassium chloride 20 mEq tablet,ER particles/crystals 20 meq PO BID fluticasone propion-salmeterol [Advair HFA] 230-21 mcg/actuation HFA aerosol inhaler 2 puff INHALATION BID Qty: 3 3RF montelukast [Singulair] 10 mg tablet 10 mg PO QHS Qty: 90 3RF semaglutide (weight loss) 0.5 mg/0.5 mL pen injector 0.5 mg subcut QWEEK Rx Instructions: administer weeks 5 through 8 of therapy latanoprost 0.005 % drops 1 drp ophthalmic (eye) QPM Rx Instructions: BOTH EYES ipratropium bromide 42 mcg (0.06 %) spray,non-aerosol 2 spray intranasal TID PRN (Reason: DRY NOSE) levothyroxine 25 mcg tablet 25 mcg PO DAILY@0600 Patient Comments: thyroid furosemide [Lasix] 40 mg tablet 40 mg PO BID cholecalciferol (vitamin D3) 50 mcg (2,000 unit) Capsule 50 mcg PO DAILY ferrous sulfate 325 MG tablet 325 mg PO DAILY Rx Instructions: Take 1 hour before doxycycline or in empty stomach while patient is on doxycycline to avoid drug drug interaction. acetaminophen 500 mg tablet 1,000 mg PO Q8 PRN (Reason: pain of temp > 101) Qty: 0 0RF albuterol sulfate 2.5 mg /3 mL (0.083 %) solution for nebulization 2.5 mg INHALATION Q4H PRN Qty: 180 6RF Rx Instructions: Use q4 hours and PRN for wheezing atorvastatin 10 mg tablet 10 mg PO QHS Qty: 90 3RF Eliquis 5 mg tablet 5 mg PO BID Qty: 180 3RF diltiazem HCl [Cardizem CD] 180 mg capsule,extended release 24hr 180 mg PO DAILY Qty: 90 3RF Rx Instructions: Hold for heart less than 60 or systolic blood pressure less than 100 mmHg. albuterol sulfate [Ventolin HFA] 90 mcg/actuation HFA aerosol inhaler 2 puff inhalation Q4H PRN (Reason: shortness of breath or wheezing) Qty: 1 3RF Referrals / Follow Up: Terry Donnelly MD [Primary Care Provider] - Within 1 Week Pete Bazzi DO [Med Staff - Active Staff] - Within 1 Month Disposition Disposition (needs filled in before D/C Order can be placed): Home, Self Care Charges/Coding Visit Charges Inpatient E&M: 75172 Disch Hosp >30min
[2023-08-06 11:18] LABS: Bedside Glucose 97 mg/dL (74-106)
[2023-08-06] MEDS: Cefdinir 300 MG Capsule PO (11:33)
[2023-08-06] MEDS: predniSONE 20 MG Tablet 40 MG PO (11:33)
== END 2023-08-06 11:53 | disposition home or self-care (01) | DRG 871 ==
LOC: ED 06:11 → PCU 06:48
PROVIDERS: Admitting Provider Internal Medicine; Emergency Provider Emergency Medicine; PCP Family Medicine; Visit Provider Family Medicine
DX: A41.50 Gram-negative sepsis, unspecified (principal); J15.5 Pneumonia due to Escherichia coli; I13.0 Hypertensive heart and chronic kidney disease with heart failure and stage 1 through stage 4 chronic kidney disease, or unspecified chronic kidney disease; J44.0 Chronic obstructive pulmonary disease with (acute) lower respiratory infection; L97.312 Non-pressure chronic ulcer of right ankle with fat layer exposed; I50.32 Chronic diastolic (congestive) heart failure; Z68.41 Body mass index [BMI] 40.0-44.9, adult; E11.22 Type 2 diabetes mellitus with diabetic chronic kidney disease; D50.9 Iron deficiency anemia, unspecified; E03.9 Hypothyroidism, unspecified; E11.51 Type 2 diabetes mellitus with diabetic peripheral angiopathy without gangrene; N18.31 Chronic kidney disease, stage 3a; E66.01 Morbid (severe) obesity due to excess calories; I48.0 Paroxysmal atrial fibrillation; E78.00 Pure hypercholesterolemia, unspecified; G47.33 Obstructive sleep apnea (adult) (pediatric); I87.2 Venous insufficiency (chronic) (peripheral); M54.2 Cervicalgia; R09.02 Hypoxemia; Z79.51 Long term (current) use of inhaled steroids; H40.9 Unspecified glaucoma; Z79.899 Other long term (current) drug therapy; Z79.890 Hormone replacement therapy; Z79.01 Long term (current) use of anticoagulants; Z86.711 Personal history of pulmonary embolism; Z87.891 Personal history of nicotine dependence; Z86.14 Personal history of Methicillin resistant Staphylococcus aureus infection; Z96.643 Presence of artificial hip joint, bilateral
CPT/HCPCS: 15271; 36415; 71046; 71250; 80048; 80053; 81001; 82962; 83036; 83605; 83735; 83880; 84100; 84443; 85025; 87040; 87070; 87077; 87186; 87205; 87631; 94640; 94668; 99252; 99282; J7030; Q4186; A4216; G0463; J2405

== ENCOUNTER 2023-08-09 10:00 | Outpatient (RCR) | payer MEDICARE, OTHER, SELFPAY ==
[2023-07-16 01:10] VITALS: BP 142/63; PULSE 86; RESP 18; TEMP 35.8; BMI 102.8
[2023-07-19 10:03] VITALS: BP 147/60; PULSE 86; RESP 18; TEMP 36.1; BMI 102.8
--- NOTE | 2023-07-19 10:34 | PN.PCM_ITS ---
History of Present Illness Date of Service: 07/19/23 Chief Complaint: Follow-up surgical wound dehiscence History of Wound: Patient has had this wound for several weeks and has noticed worsening with increased serous drainage. Patient denies any fever chills nausea vomiting chest pain calf pain shortness of breath.68-year-old female presents today with a venous leg ulceration to her right leg. Patient has no other complaints. Objective Data Objective Data Vital Signs: Vital Signs Temp Pulse Resp BP O2 Del Method 96.9 F L 86 18 147/60 H Room Air 07/19/23 10:07/19/23 10:07/19/23 10:07/19/23 10:07/19/23 10:03 Oxygen Delivery Method Room Air Weight: 108.409 kg Body Mass Index (BMI) 102.8 Physical Exam Narrative Vascular: Trophic changes to skin secondary to chronic venous insufficiency. Palpable dorsalis pedis and posterior tibial pulses, 2 out of 4 bilateral lower extremity. Atrophic changes noted to skin of the foot with skin thinning kind, shiny, taut appearance absent digital hair growth. Neurologic: Light touch protective sensation intact. No evidence of clonus or Babinski. Dermatologic: Full-thickness ulceration to the right medial ankle along course of great saphenous vein demonstrates a fibrogranular base. Pre and postdebridement measurements documented nursing notes. No deep probing or undermining. Some mild periwound erythema and warmth noted. No other signs of infection. Musculoskeletal: No pain with calf squeeze. No gross musculoskeletal deformity contributing to this wound formation. 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 Muscular strength is full to bilateral lower extremity compartments. 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 ) Arrival Mode Ambulatory, Walker Patient Identification Verified (Name & Yes ) Height and Weight Body Mass Index (BMI) 102.8 BMI Classification Obese Vital Signs Temperature (97.8 F-99.1 F) 96.9 F L Temperature Source Temporal Pulse Rate (60-100) 86 Pulse Location Monitor Respiratory Rate (12-18) 18 Respiratory rate source Observation Oxygen Delivery Method Room Air Blood Pressure (90/60-120/80) 147/60 H Blood Pressure Mean (mm Hg) 89 Source Monitor Position Sitting Blood Pressure Location Left Arm History Since Last Visit- (Skip if this is Patient's initial visit) Have you changed medications since your No last visit? Any new allergies or adverse reactions No Had a fall/change in ADL's that may No increase risk of falls Signs or symptoms of abuse and/or No neglect since last visit Have you been in the hospital since your No last visit? Has dressing in place as prescribed Yes Has compression in place as prescribed Yes Has offloadiing in place as prescribed Yes Experienced any changes in pain level or No management Left Footwear Surgical Shoe with pressure relief insole Right Footwear Removable Cast Walker/Walking Boot Pain Scale: 0-10 Numeric Is Patient Pain Free? Yes - Nurse 1 - General Ulcer Measurement Start: 07/19/23 10:03 Freq: Status: Active Protocol: Activity Type Activity Date Activity User E-sign Co-sign Detail Recorded Client Recorded Date Recorded By Document 07/19/23 10:03 wound center 07/19/23 10:10 07/19/23 10:03 Wound Center Nurse 1 #3 RT MED ANKLE -Current Size (cm) - Length 0.6 -Current Size (cm) - Width 0.3 -Current Size (cm) - Depth 0.2 -Total Square Cm 0.18 -Exudate Amt Small -Exudate Type Serosanguineous -Wound Margin Distinct, Outline Attached -Granulation Amt Small (1-33%) -Granulation Quality Red -Necrosis Amt Large (67-100%) -Necrotic Tissue Type Adherent Slough -Texture (Jagruti-wound Skin Appearance) Assessed -Moisture (Jagruti-wound Skin Appearance) Assessed -Color (Jagruti-wound Skin Appearance) Assessed, Erythema -Temperature (Jagruti-wound Skin No Abnormality Appearance) (Pt Warm) -Tenderness on Palpation (Jagruti-wound Yes Skin Appearance) -Ulcer Cleansing Rinsed/ Irrigated with Saline -Foul Odor after Cleansing No -Anesthetic Used 5% Lidocaine Gel Right Calf (cm) 35.5 Right Ankle (cm) 22 WC - Nurse 2 - General Ulcer CM Notes Start: 07/19/23 10:03 Freq: Status: Active Protocol: Activity Type Activity Date Activity User E-sign Co-sign Detail Recorded Client Recorded Date Recorded By Document 07/19/23 10:30 [id number] 07/19/23 10:30 BECCA 07/19/23 10:30 Wound Center Nurse 2 #3 RT MED ANKLE -Time 10:30 -Correct Patient Yes -Correct Side, Site, Position Yes -Correct Procedure Yes -Procedure Performed Yes -Type of Procedure Debridement -Clinical Debridement Subcutaneous -Tissue Removed Subcutaneous -Post Debridement (cm) - Length 0.6 -Post Debridement (cm) - Width 0.4 -Post Debridement (cm) - Depth 0.2 -Total Square (Post) (cm) 0.24 -Area of Debridement (cm) - Length 0.6 -Area of Debridement (cm) - Width 0.4 -Total Square (Area) (cm) 0.24 -Tunneling No -Undermining/Tunneling No -Circular Undermining No -Wound/Ulcer Outcome Not Healed -Ulcer Cleansing Rinsed/ Irrigated with Saline -Foul Odor after Cleansing No -Bioengineered Tissue No -Bleeding Controlled with Pressure -Treatment Response Procedure Tolerated Well -Offloading No -Debridement - Subq, 1st 20sq cm Yes Pain Scale: 0-10 Numeric Is Patient Pain Free? Yes Assessment/Plan Assessment/Plan (1) Non-pressure chronic ulcer of right ankle with fat layer exposed: CODE(S): L97.312 - Non-pressure chronic ulcer of right ankle with fat layer exposed PLAN: Exam performed Recent arterial studies within normal limits Patient has venous insufficiency with chronic venous venous leg ulceration right lower extremity Right lower extremity wound was excisionally debrided down to including level of subcutaneous tissue of all nonviable tissue using a throat 3 mm dermal curette. Patient tolerated procedure well. Topical anesthesia used. Pre and postdebridement measurements documented nursing notes. Hemostasis obtained with light compression. Continue to use daily santyl, periwound triamcinolone with DSD and tubigrip Venous studies ordered. Will consider vascular referral. Patient will follow-up in 1 week for continued care. (2) Venous insufficiency (chronic) (peripheral): CODE(S): I87.2 - Venous insufficiency (chronic) (peripheral)
[2023-07-19 18:14] LABS: Mucous, Urine 0 SEEN /hpf (<or=2+); Red Blood Cells-Urine 0 SEEN /hpf (0-5); Squamous Epithelial Cells - UA 0 SEEN /hpf (5-10)
[2023-07-19 18:43] LABS: Color, Urine Yellow (Yellow); Glucose, Dipstick Normal (Normal); Ketone-Dipstick Negative (Negative); Leukocyte Esterase-Dipstick 500 /ul (Negative); Nitrite-Dipstick Positive (Negative); Occult Blood-Urine 25 /ul (Negative); Protein-Dipstick 30 mg/dl (Negative); Specific Gravity, Urine 1.015 (1.002-1.030); Urine Clarity Clear (Clear); Urine Urobilinogen 8 mg/dl (Normal)
[2023-07-19 18:56] LABS: Urine Bilirubin Dipstick 3 mg/dL (Negative)
[2023-07-19 19:08] LABS: White Blood Cells 50-100 SEEN /hpf (0-5)
[2023-07-19 19:09] LABS: Bacteria 2+ /hpf (None Seen)
[2023-07-26 09:34] VITALS: BP 157/64; PULSE 80; RESP 16; TEMP 36.1; BMI 102.8
--- NOTE | 2023-07-26 10:09 | PCM.WC.PN ---
History of Present Illness Date of Service: 07/26/23 Chief Complaint: Follow-up surgical wound dehiscence History of Wound: Patient has had this wound for several weeks and has noticed worsening with increased serous drainage. Patient denies any fever chills nausea vomiting chest pain calf pain shortness of breath.68-year-old female presents today with a venous leg ulceration to her right leg. Patient has no other complaints. Objective Data Objective Data Vital Signs: Vital Signs Temp Pulse Resp BP O2 Del Method 96.9 F L 80 16 157/64 H Room Air 07/26/23 09:34 07/26/23 09:34 07/26/23 09:34 07/26/23 09:34 07/26/23 09:34 Oxygen Delivery Method Room Air Weight: 108.409 kg Body Mass Index (BMI) 102.8 Lab / Micro Data Micro: Microbiology 07/19/23 Unknown Urine, Midstream Urine Culture - Final Presumptive E. coli Physical Exam Narrative Vascular: Trophic changes to skin secondary to chronic venous insufficiency. Palpable dorsalis pedis and posterior tibial pulses, 2 out of 4 bilateral lower extremity. Atrophic changes noted to skin of the foot with skin thinning kind, shiny, taut appearance absent digital hair growth. Neurologic: Light touch protective sensation intact. No evidence of clonus or Babinski. Dermatologic: Full-thickness ulceration to the right medial ankle along course of great saphenous vein demonstrates a fibrogranular base. Pre and postdebridement measurements documented nursing notes. No deep probing or undermining. Some mild periwound erythema and warmth noted. No other signs of infection. Musculoskeletal: No pain with calf squeeze. No gross musculoskeletal deformity contributing to this wound formation. 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 Muscular strength is full to bilateral lower extremity compartments. 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 (Physician/WEATHERSTRIP MACHINE OPERATOR ) ) Arrival Mode Ambulatory, Ambulatory, Walker Walker Patient Identification Verified (Name & Yes Yes ) Height and Weight Body Mass Index (BMI) 102.8 102.8 BMI Classification Obese Obese Vital Signs Temperature (97.8 F-99.1 F) 96.9 F L 96.9 F L Temperature Source Temporal Temporal Pulse Rate (60-100) 86 80 Pulse Location Monitor Monitor Respiratory Rate (12-18) 18 16 Respiratory rate source Observation Observation Oxygen Delivery Method Room Air Room Air Blood Pressure (90/60-120/80) 147/60 H 157/64 H Blood Pressure Mean (mm Hg) 89 95 Source Monitor Monitor Position Sitting Sitting Blood Pressure Location Left Arm Left Arm History Since Last Visit- (Skip if this is Patient's initial visit) Have you changed medications since your No Yes last visit? Any new allergies or adverse reactions No No Had a fall/change in ADL's that may No No increase risk of falls Signs or symptoms of abuse and/or No No neglect since last visit Have you been in the hospital since your No No last visit? Has dressing in place as prescribed Yes Yes Has compression in place as prescribed Yes Yes Has offloadiing in place as prescribed Yes Yes Experienced any changes in pain level or No No management Left Footwear Surgical Shoe Removable Cast with pressure Walker/Walking relief insole Boot Right Footwear Removable Cast Surgical Shoe Walker/Walking with pressure Boot relief insole Pain Scale: 0-10 Numeric Is Patient Pain Free? Yes Yes - Nurse 1 - General Ulcer Measurement Start: 07/19/23 10:03 Freq: Status: Active Protocol: Activity Type Activity Date Activity User E-sign Co-sign Detail Recorded Client Recorded Date Recorded By Document 07/19/23 10:03 KW wound center 07/19/23 10:10 KW Document 07/26/23 09:34 KW wound center 07/26/23 09:40 KW 07/19/23 07/26/23 10:03 09:34 Wound Center Nurse 1 #3 RT MED ANKLE -Current Size (cm) - Length 0.6 1 -Current Size (cm) - Width 0.3 0.4 -Current Size (cm) - Depth 0.2 0.2 -Total Square Cm 0.18 0.4 -Exudate Amt Small Small -Exudate Type Serosanguineous Serosanguineous -Wound Margin Distinct, Distinct, Outline Outline Attached Attached -Granulation Amt Small (1-33%) Large (67-100%) -Granulation Quality Red Red -Necrosis Amt Large (67-100%) -Necrotic Tissue Type Adherent Slough -Texture (Jagruti-wound Skin Appearance) Assessed Assessed -Moisture (Jagruti-wound Skin Appearance) Assessed Assessed -Color (Jagruti-wound Skin Appearance) Assessed, Assessed, Erythema Ecchymosis -Temperature (Jagruti-wound Skin No Abnormality Appearance) (Pt Warm) -Tenderness on Palpation (Jagruti-wound Yes No Skin Appearance) -Ulcer Cleansing Rinsed/ Rinsed/ Irrigated with Irrigated with Saline Saline -Foul Odor after Cleansing No No -Anesthetic Used 5% Lidocaine 5% Lidocaine Gel Gel Right Calf (cm) 35.5 35.5 Right Ankle (cm) 22 23.5 WC - Nurse 2 - General Ulcer CM Notes Start: 07/19/23 10:03 Freq: Status: Active Protocol: Activity Type Activity Date Activity User E-sign Co-sign Detail Recorded Client Recorded Date Recorded By Document 07/19/23 10:30 [id number] 07/19/23 10:30 Document 07/26/23 09:53 [id number] 07/26/23 09:54 07/19/23 07/26/23 10:30 09:53 Wound Center Nurse 2 #3 RT MED ANKLE -Time 10:30 09:53 -Correct Patient Yes Yes -Correct Side, Site, Position Yes Yes -Correct Procedure Yes Yes -Procedure Performed Yes Yes -Type of Procedure Debridement Debridement -Clinical Debridement Subcutaneous Subcutaneous -Tissue Removed Subcutaneous Subcutaneous -Post Debridement (cm) - Length 0.6 1.2 -Post Debridement (cm) - Width 0.4 1 -Post Debridement (cm) - Depth 0.2 0.2 -Total Square (Post) (cm) 0.24 1.2 -Area of Debridement (cm) - Length 0.6 1.2 -Area of Debridement (cm) - Width 0.4 1.0 -Total Square (Area) (cm) 0.24 1.20 -Tunneling No No -Undermining/Tunneling No No -Circular Undermining No No -Wound/Ulcer Outcome Not Healed Not Healed -Ulcer Cleansing Rinsed/ Rinsed/ Irrigated with Irrigated with Saline Saline -Foul Odor after Cleansing No No -Bioengineered Tissue No Yes -Type of Bioengineered Tissue Epifix 18mm Disc -Expiration Date 02/15/28 -Product Lot Number [id number] -Percent Used 100 -Lot number of Saline Used [id number] -Bleeding Controlled with Pressure Pressure -Treatment Response Procedure Procedure Tolerated Well Tolerated Well -Offloading No No -Debridement - Subq, 1st 20sq cm Yes No -Apply Skin Sub - 1st 25 sq cm - Legs 1 -Epifix 18mm Disc 3 Pain Scale: 0-10 Numeric Is Patient Pain Free? Yes Yes - Nurse 3 - General Ulcer D/C NN Start: 07/19/23 10:03 Freq: Status: Active Protocol: Activity Type Activity Date Activity User E-sign Co-sign Detail Recorded Client Recorded Date Recorded By Document 07/19/23 10:39 wound center 07/19/23 10:40 07/19/23 10:39 Wound Care Center Nurse 3 #3 RT MED ANKLE -Ulcer Cleansing Rinsed/ Irrigated with Saline -Other Dressing PT OWN SANTYL -Primary Dressing Covered/Secured with Dry Gauze & Roll Gauze, Secured with Tape Right -Tubular Bandage Single Layer -Size of Tubigrip Used Size D -Size D ($) 1 Pain Scale: 0-10 Numeric Is Patient Pain Free? Yes - Visit Discharge Discharge Condition Stable Ambulatory Status Ambulatory, Walker Transportation Private Auto Medication Reconcilliation completed & No provided to patient/care provider Clinical Summary of Care Provided Yes Assessment/Plan Assessment/Plan (1) Non-pressure chronic ulcer of right ankle with fat layer exposed: CODE(S): L97.312 - Non-pressure chronic ulcer of right ankle with fat layer exposed PLAN: Exam performed Recent arterial studies within normal limits Patient has venous insufficiency with chronic venous venous leg ulceration right lower extremity Right lower extremity wound was excisionally debrided down to including level of subcutaneous tissue of all nonviable tissue using a throat 3 mm dermal curette. Patient tolerated procedure well. Topical anesthesia used. Pre and postdebridement measurements documented nursing notes. Hemostasis obtained with light compression. Today a 11 mm disc EpiFix graft was applied to the right lower extremity wound. Entire graft used no waste. Graft was secured with Adaptic and Steri-Strips. Hydrogel applied to overlying Adaptic graft site. Dressed with dry sterile dressing and 3M compression right lower extremity. Patient will follow-up in 1 week for continued care. (2) Venous insufficiency (chronic) (peripheral): CODE(S): I87.2 - Venous insufficiency (chronic) (peripheral)
[2023-08-02 09:35] VITALS: BP 152/73; PULSE 81; RESP 18; TEMP 36.2; BMI 102.8
--- NOTE | 2023-08-02 10:01 | PN.PCM_ITS ---
History of Present Illness Date of Service: 08/02/23 Chief Complaint: Follow-up surgical wound dehiscence History of Wound: Patient has had this wound for several weeks and has noticed worsening with increased serous drainage. Patient denies any fever chills nausea vomiting chest pain calf pain shortness of breath.68-year-old female presents today with a venous leg ulceration to her right leg. Patient has no other complaints. Objective Data Objective Data Vital Signs: Vital Signs Temp Pulse Resp BP O2 Del Method 97.2 F L 81 18 152/73 H Room Air 08/02/23 09:35 08/02/23 09:35 08/02/23 09:35 08/02/23 09:35 08/02/23 09:35 Oxygen Delivery Method Room Air Weight: 108.409 kg Body Mass Index (BMI) 102.8 Lab / Micro Data Micro: Microbiology 07/19/23 Unknown Urine, Midstream Urine Culture - Final Presumptive E. coli Physical Exam Narrative Vascular: Trophic changes to skin secondary to chronic venous insufficiency. Palpable dorsalis pedis and posterior tibial pulses, 2 out of 4 bilateral lower extremity. Atrophic changes noted to skin of the foot with skin thinning kind, shiny, taut appearance absent digital hair growth. Neurologic: Light touch protective sensation intact. No evidence of clonus or Babinski. Dermatologic: Full-thickness ulceration to the right medial ankle along course of great saphenous vein demonstrates a fibrogranular base. Pre and postdebridement measurements documented nursing notes. No deep probing or undermining. Some mild periwound erythema and warmth noted. No other signs of infection. Musculoskeletal: No pain with calf squeeze. No gross musculoskeletal deformity contributing to this wound formation. 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 Muscular strength is full to bilateral lower extremity compartments. Debridement Note Debridement Note Post-Debridement Measurements and Additional Note: Post-Debridement Measurements/Treatment WC - Nurse 1 - General Ulcer Assessment Start: 07/19/23 10:03 Freq: Status: Active Protocol: FABRIZIO.ANNAEXT Activity Type Activity Date Activity User E-sign Co-sign Detail Recorded Client Recorded Date Recorded By Document 07/19/23 10:03 KW wound center 07/19/23 10:10 KW Document 07/26/23 09:34 KW wound center 07/26/23 09:40 KW Document 08/02/23 09:35 KW g 08/02/23 09:40 KW 07/19/23 07/26/23 08/02/23 10:03 09:34 09:35 WC - Today's Visit Information Type of service Follow-up Visit Follow-up Visit Follow-up Visit (Physician/ELECTRONICS UTILITY WORKER (Physician/ELECTRONICS UTILITY WORKER (Physician/ELECTRONICS UTILITY WORKER ) ) ) Arrival Mode Ambulatory, Ambulatory, Ambulatory, Walker Walker Walker Patient Identification Verified (Name & Yes Yes Yes ) Height and Weight Body Mass Index (BMI) 102.8 102.8 102.8 BMI Classification Obese Obese Obese Vital Signs Temperature (97.8 F-99.1 F) 96.9 F L 96.9 F L 97.2 F L Temperature Source Temporal Temporal Temporal Pulse Rate (60-100) 86 80 81 Pulse Location Monitor Monitor Monitor Respiratory Rate (12-18) 18 16 18 Respiratory rate source Observation Observation Observation Oxygen Delivery Method Room Air Room Air Room Air Blood Pressure (90/60-120/80) 147/60 H 157/64 H 152/73 H Blood Pressure Mean (mm Hg) 89 95 99 Source Monitor Monitor Monitor Position Sitting Sitting Sitting Blood Pressure Location Left Arm Left Arm Left Arm History Since Last Visit- (Skip if this is Patient's initial visit) Have you changed medications since your No Yes No last visit? Any new allergies or adverse reactions No No No Had a fall/change in ADL's that may No No No increase risk of falls Signs or symptoms of abuse and/or No No No neglect since last visit Have you been in the hospital since your No No No last visit? Has dressing in place as prescribed Yes Yes Yes Has compression in place as prescribed Yes Yes Yes Has offloadiing in place as prescribed Yes Yes Yes Experienced any changes in pain level or No No No management Left Footwear Surgical Shoe Removable Cast Removable Cast with pressure Walker/Walking Walker/Walking relief insole Boot Boot Right Footwear Removable Cast Surgical Shoe Surgical Shoe Walker/Walking with pressure with pressure Boot relief insole relief insole Pain Scale: 0-10 Numeric Is Patient Pain Free? Yes Yes Yes - Nurse 1 - General Ulcer Measurement Start: 07/19/23 10:03 Freq: Status: Active Protocol: Activity Type Activity Date Activity User E-sign Co-sign Detail Recorded Client Recorded Date Recorded By Document 07/19/23 10:03 KW wound center 07/19/23 10:10 KW Document 07/26/23 09:34 KW wound center 07/26/23 09:40 KW Document 08/02/23 09:35 KW g 08/02/23 09:40 KW 07/19/23 07/26/23 08/02/23 10:03 09:34 09:35 Wound Center Nurse 1 #3 RT MED ANKLE -Current Size (cm) - Length 0.6 1 0.5 -Current Size (cm) - Width 0.3 0.4 0.5 -Current Size (cm) - Depth 0.2 0.2 0.4 -Total Square Cm 0.18 0.4 0.25 -Date of Last Picture (Recall this 08/02/23 field) -Exudate Amt Small Small Small -Exudate Type Serosanguineous Serosanguineous Serosanguineous -Wound Margin Distinct, Distinct, Distinct, Outline Outline Outline Attached Attached Attached -Granulation Amt Small (1-33%) Large (67-100%) -Granulation Quality Red Red -Necrosis Amt Large (67-100%) -Necrotic Tissue Type Adherent Slough -Texture (Jagruti-wound Skin Appearance) Assessed Assessed Assessed -Moisture (Jagruti-wound Skin Appearance) Assessed Assessed Assessed -Color (Jagruti-wound Skin Appearance) Assessed, Assessed, Assessed Erythema Ecchymosis -Temperature (Jagruti-wound Skin No Abnormality No Abnormality Appearance) (Pt Warm) (Pt Warm) -Tenderness on Palpation (Jagruti-wound Yes No No Skin Appearance) -Ulcer Cleansing Rinsed/ Rinsed/ Soap and Water Irrigated with Irrigated with Saline Saline -Foul Odor after Cleansing No No -Anesthetic Used 5% Lidocaine 5% Lidocaine 5% Lidocaine Gel Gel Gel Right Calf (cm) 35.5 35.5 32.7 Right Ankle (cm) 22 23.5 20.5 WC - Nurse 2 - General Ulcer CM Notes Start: 07/19/23 10:03 Freq: Status: Active Protocol: Activity Type Activity Date Activity User E-sign Co-sign Detail Recorded Client Recorded Date Recorded By Document 07/19/23 10:30 [id number] 07/19/23 10:30 Document 07/26/23 09:53 [id number] 07/26/23 09:54 JF Document 08/02/23 09:53 [id number] 08/02/23 10:00 07/19/23 07/26/23 08/02/23 10:30 09:53 09:53 Wound Center Nurse 2 #3 RT MED ANKLE -Time 10:30 09:53 09:59 -Correct Patient Yes Yes Yes -Correct Side, Site, Position Yes Yes Yes -Correct Procedure Yes Yes Yes -Procedure Performed Yes Yes Yes -Type of Procedure Debridement Debridement Debridement -Clinical Debridement Subcutaneous Subcutaneous Subcutaneous -Tissue Removed Subcutaneous Subcutaneous Subcutaneous -Post Debridement (cm) - Length 0.6 1.2 1.0 -Post Debridement (cm) - Width 0.4 1 1.1 -Post Debridement (cm) - Depth 0.2 0.2 0.2 -Total Square (Post) (cm) 0.24 1.2 1.10 -Area of Debridement (cm) - Length 0.6 1.2 1.0 -Area of Debridement (cm) - Width 0.4 1.0 1.1 -Total Square (Area) (cm) 0.24 1.20 1.10 -Tunneling No No No -Undermining/Tunneling No No No -Circular Undermining No No No -Wound/Ulcer Outcome Not Healed Not Healed Not Healed -Ulcer Cleansing Rinsed/ Rinsed/ Rinsed/ Irrigated with Irrigated with Irrigated with Saline Saline Saline -Foul Odor after Cleansing No No No -Bioengineered Tissue No Yes Yes -Type of Bioengineered Tissue Epifix 18mm Epifix 18mm Disc Disc -Expiration Date 02/15/28 02/15/28 -Product Lot Number [id number] -Percent Used 100 100 -Lot number of Saline Used [id number] -Bleeding Controlled with Pressure Pressure Pressure -Treatment Response Procedure Procedure Procedure Tolerated Well Tolerated Well Tolerated Well -Offloading No No No -Debridement - Subq, 1st 20sq cm Yes No No -Apply Skin Sub - 1st 25 sq cm - Legs 1 1 -Epifix 18mm Disc 3 3 Pain Scale: 0-10 Numeric Is Patient Pain Free? Yes Yes Yes - Nurse 3 - General Ulcer D/C NN Start: 07/19/23 10:03 Freq: Status: Active Protocol: Activity Type Activity Date Activity User E-sign Co-sign Detail Recorded Client Recorded Date Recorded By Document 07/19/23 10:39 KW wound center 07/19/23 10:40 KW 07/19/23 10:39 Wound Care Center Nurse 3 #3 RT MED ANKLE -Ulcer Cleansing Rinsed/ Irrigated with Saline -Other Dressing PT OWN SANTYL -Primary Dressing Covered/Secured with Dry Gauze & Roll Gauze, Secured with Tape Right -Tubular Bandage Single Layer -Size of Tubigrip Used Size D -Size D ($) 1 Pain Scale: 0-10 Numeric Is Patient Pain Free? Yes WC - Visit Discharge Discharge Condition Stable Ambulatory Status Ambulatory, Walker Transportation Private Auto Medication Reconcilliation completed & No provided to patient/care provider Clinical Summary of Care Provided Yes Assessment/Plan Assessment/Plan (1) Non-pressure chronic ulcer of right ankle with fat layer exposed: CODE(S): L97.312 - Non-pressure chronic ulcer of right ankle with fat layer exposed PLAN: Exam performed Recent arterial studies within normal limits Patient has venous insufficiency with chronic venous venous leg ulceration right lower extremity Right lower extremity wound was excisionally debrided down to including level of subcutaneous tissue of all nonviable tissue using a throat 3 mm dermal curette. Patient tolerated procedure well. Topical anesthesia used. Pre and postdebridement measurements documented nursing notes. Hemostasis obtained with light compression. Today a 11 mm disc EpiFix graft was applied to the right lower extremity wound. Entire graft used no waste. Graft was secured with Adaptic and Steri-Strips. Hydrogel applied to overlying Adaptic graft site. Dressed with dry sterile dressing and 3M compression right lower extremity. Patient will follow-up in 1 week for continued care. (2) Venous insufficiency (chronic) (peripheral): CODE(S): I87.2 - Venous insufficiency (chronic) (peripheral)
[2023-08-09 09:56] VITALS: BP 148/101; PULSE 90; RESP 20; TEMP 36; BMI 102.8
--- NOTE | 2023-08-09 10:43 | PCM.WC.PN ---
History of Present Illness Date of Service: 08/09/23 Chief Complaint: Follow-up surgical wound dehiscence History of Wound: Patient has had this wound for several weeks and has noticed worsening with increased serous drainage. Patient denies any fever chills nausea vomiting chest pain calf pain shortness of breath.68-year-old female presents today with a venous leg ulceration to her right leg. Patient has no other complaints. Objective Data Objective Data Vital Signs: Vital Signs Temp Pulse Resp BP O2 Del Method 96.8 F L 90 20 H 148/101 H Room Air 08/09/23 09:56 08/09/23 09:56 08/09/23 09:56 08/09/23 09:56 08/02/23 09:35 Oxygen Delivery Method Room Air Weight: 108.409 kg Body Mass Index (BMI) 102.8 Lab / Micro Data Micro: Microbiology 07/19/23 Unknown Urine, Midstream Urine Culture - Final Presumptive E. coli Physical Exam Narrative Vascular: Trophic changes to skin secondary to chronic venous insufficiency. Palpable dorsalis pedis and posterior tibial pulses, 2 out of 4 bilateral lower extremity. Atrophic changes noted to skin of the foot with skin thinning kind, shiny, taut appearance absent digital hair growth. Neurologic: Light touch protective sensation intact. No evidence of clonus or Babinski. Dermatologic: Full-thickness ulceration to the right medial ankle along course of great saphenous vein demonstrates a fibrogranular base. Pre and postdebridement measurements documented nursing notes. No deep probing or undermining. Some mild periwound erythema and warmth noted. No other signs of infection. Musculoskeletal: No pain with calf squeeze. No gross musculoskeletal deformity contributing to this wound formation. 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 Muscular strength is full to bilateral lower extremity compartments. Debridement Note Debridement Note Post-Debridement Measurements and Additional Note: Post-Debridement Measurements/Treatment WC - Nurse 1 - General Ulcer Assessment Start: 07/19/23 10:03 Freq: Status: Active Protocol: [email or web address] Activity Type Activity Date Activity User E-sign Co-sign Detail Recorded Client Recorded Date Recorded By Document 07/19/23 10:03 KW wound center 07/19/23 10:10 KW Document 07/26/23 09:34 KW wound center 07/26/23 09:40 KW Document 08/02/23 09:35 KW g 08/02/23 09:40 KW Document 08/09/23 09:56 DL [email or web address] 08/09/23 10:05 DL 07/19/23 07/26/23 08/02/23 10:03 09:34 09:35 WC - Today's Visit Information Type of service Follow-up Visit Follow-up Visit Follow-up Visit (Physician/ONLINE MARKETING STRATEGIST (Physician/ONLINE MARKETING STRATEGIST (Physician/ONLINE MARKETING STRATEGIST ) ) ) Arrival Mode Ambulatory, Ambulatory, Ambulatory, Walker Walker Walker Transfer Assistance Patient Identification Verified (Name & Yes Yes Yes ) Patient Requires Transmission-Based Precautions Height and Weight Body Mass Index (BMI) 102.8 102.8 102.8 BMI Classification Obese Obese Obese Vital Signs Temperature (97.8 F-99.1 F) 96.9 F L 96.9 F L 97.2 F L Temperature Source Temporal Temporal Temporal Pulse Rate (60-100) 86 80 81 Pulse Location Monitor Monitor Monitor Respiratory Rate (12-18) 18 16 18 Respiratory rate source Observation Observation Observation Oxygen Delivery Method Room Air Room Air Room Air Blood Pressure (90/60-120/80) 147/60 H 157/64 H 152/73 H Blood Pressure Mean (mm Hg) 89 95 99 Source Monitor Monitor Monitor Position Sitting Sitting Sitting Blood Pressure Location Left Arm Left Arm Left Arm History Since Last Visit- (Skip if this is Patient's initial visit) Have you changed medications since your No Yes No last visit? Any new allergies or adverse reactions No No No Had a fall/change in ADL's that may No No No increase risk of falls Signs or symptoms of abuse and/or No No No neglect since last visit Have you been in the hospital since your No No No last visit? Has dressing in place as prescribed Yes Yes Yes Has compression in place as prescribed Yes Yes Yes Has offloadiing in place as prescribed Yes Yes Yes Experienced any changes in pain level or No No No management Left Footwear Surgical Shoe Removable Cast Removable Cast with pressure Walker/Walking Walker/Walking relief insole Boot Boot Right Footwear Removable Cast Surgical Shoe Surgical Shoe Walker/Walking with pressure with pressure Boot relief insole relief insole Pain Scale: 0-10 Numeric Is Patient Pain Free? Yes Yes Yes 08/09/23 09:56 WC - Today's Visit Information Type of service Follow-up Visit (Physician/ONLINE MARKETING STRATEGIST ) Arrival Mode Ambulatory, Walker Transfer Assistance None Patient Identification Verified (Name & Yes ) Patient Requires Transmission-Based No Precautions Height and Weight Body Mass Index (BMI) 102.8 BMI Classification Obese Vital Signs Temperature (97.8 F-99.1 F) 96.8 F L Temperature Source Temporal Pulse Rate (60-100) 90 Pulse Location Monitor Respiratory Rate (12-18) 20 H Respiratory rate source Observation Oxygen Delivery Method Blood Pressure (90/60-120/80) 148/101 H Blood Pressure Mean (mm Hg) 116 Source Monitor Position Blood Pressure Location History Since Last Visit- (Skip if this is Patient's initial visit) Have you changed medications since your Yes last visit? Any new allergies or adverse reactions No Had a fall/change in ADL's that may No increase risk of falls Signs or symptoms of abuse and/or No neglect since last visit Have you been in the hospital since your No last visit? Has dressing in place as prescribed Yes Has compression in place as prescribed Yes Has offloadiing in place as prescribed Yes Experienced any changes in pain level or No management Left Footwear Removable Cast Walker/Walking Boot Right Footwear Removable Cast Walker/Walking Boot Pain Scale: 0-10 Numeric Is Patient Pain Free? Yes WC - Nurse 1 - General Ulcer Measurement Start: 07/19/23 10:03 Freq: Status: Active Protocol: Activity Type Activity Date Activity User E-sign Co-sign Detail Recorded Client Recorded Date Recorded By Document 07/19/23 10:03 KW wound center 07/19/23 10:10 KW Document 07/26/23 09:34 KW wound center 07/26/23 09:40 KW Document 08/02/23 09:35 KW g 08/02/23 09:40 KW Document 08/09/23 09:56 DL [email or web address] 08/09/23 10:05 DL 07/19/23 07/26/23 08/02/23 10:03 09:34 09:35 Wound Center Nurse 1 #3 RT MED ANKLE -Current Size (cm) - Length 0.6 1 0.5 -Current Size (cm) - Width 0.3 0.4 0.5 -Current Size (cm) - Depth 0.2 0.2 0.4 -Total Square Cm 0.18 0.4 0.25 -Date of Last Picture (Recall this 08/02/23 field) -Exudate Amt Small Small Small -Exudate Type Serosanguineous Serosanguineous Serosanguineous -Wound Margin Distinct, Distinct, Distinct, Outline Outline Outline Attached Attached Attached -Granulation Amt Small (1-33%) Large (67-100%) -Granulation Quality Red Red -Necrosis Amt Large (67-100%) -Necrotic Tissue Type Adherent Slough -Structure Exposed -Texture (Jagruti-wound Skin Appearance) Assessed Assessed Assessed -Moisture (Jagruti-wound Skin Appearance) Assessed Assessed Assessed -Color (Jagruti-wound Skin Appearance) Assessed, Assessed, Assessed Erythema Ecchymosis -Temperature (Jagruti-wound Skin No Abnormality No Abnormality Appearance) (Pt Warm) (Pt Warm) -Tenderness on Palpation (Jagruti-wound Yes No No Skin Appearance) -Ulcer Cleansing Rinsed/ Rinsed/ Soap and Water Irrigated with Irrigated with Saline Saline -Foul Odor after Cleansing No No -Anesthetic Used 5% Lidocaine 5% Lidocaine 5% Lidocaine Gel Gel Gel Right Calf (cm) 35.5 35.5 32.7 Right Ankle (cm) 22 23.5 20.5 08/09/23 09:56 Wound Center Nurse 1 #3 RT MED ANKLE -Current Size (cm) - Length 0.9 -Current Size (cm) - Width 0.5 -Current Size (cm) - Depth 0.3 -Total Square Cm 0.45 -Date of Last Picture (Recall this field) -Exudate Amt Medium -Exudate Type Serosanguineous -Wound Margin Distinct, Outline Attached -Granulation Amt Large (67-100%) -Granulation Quality Pale,Rudy -Necrosis Amt Small (1-33%) -Necrotic Tissue Type Adherent Slough -Structure Exposed N/A -Texture (Jagruti-wound Skin Appearance) Scarring -Moisture (Jagruti-wound Skin Appearance) Dry/Scaly -Color (Jagruti-wound Skin Appearance) Hemosiderin Staining -Temperature (Jagruti-wound Skin No Abnormality Appearance) (Pt Warm) -Tenderness on Palpation (Jagruti-wound No Skin Appearance) -Ulcer Cleansing Soap and Water -Foul Odor after Cleansing No -Anesthetic Used 5% Lidocaine Gel Right Calf (cm) 33 Right Ankle (cm) 20 WC - Nurse 2 - General Ulcer CM Notes Start: 07/19/23 10:03 Freq: Status: Active Protocol: Activity Type Activity Date Activity User E-sign Co-sign Detail Recorded Client Recorded Date Recorded By Document 07/19/23 10:30 JF [id number] 07/19/23 10:30 JF Document 07/26/23 09:53 JF [id number] 07/26/23 09:54 JF Document 08/02/23 09:53 JF [id number] 08/02/23 10:00 JF Document 08/09/23 10:22 JF 0000 08/09/23 10:23 JF 07/19/23 07/26/23 08/02/23 10:30 09:53 09:53 Wound Center Nurse 2 #3 RT MED ANKLE -Time 10:30 09:53 09:59 -Correct Patient Yes Yes Yes -Correct Side, Site, Position Yes Yes Yes -Correct Procedure Yes Yes Yes -Procedure Performed Yes Yes Yes -Type of Procedure Debridement Debridement Debridement -Clinical Debridement Subcutaneous Subcutaneous Subcutaneous -Tissue Removed Subcutaneous Subcutaneous Subcutaneous -Post Debridement (cm) - Length 0.6 1.2 1.0 -Post Debridement (cm) - Width 0.4 1 1.1 -Post Debridement (cm) - Depth 0.2 0.2 0.2 -Total Square (Post) (cm) 0.24 1.2 1.10 -Area of Debridement (cm) - Length 0.6 1.2 1.0 -Area of Debridement (cm) - Width 0.4 1.0 1.1 -Total Square (Area) (cm) 0.24 1.20 1.10 -Tunneling No No No -Undermining/Tunneling No No No -Circular Undermining No No No -Wound/Ulcer Outcome Not Healed Not Healed Not Healed -Ulcer Cleansing Rinsed/ Rinsed/ Rinsed/ Irrigated with Irrigated with Irrigated with Saline Saline Saline -Foul Odor after Cleansing No No No -Bioengineered Tissue No Yes Yes -Type of Bioengineered Tissue Epifix 18mm Epifix 18mm Disc Disc -Expiration Date 02/15/28 02/15/28 -Product Lot Number [id number] -Percent Used 100 100 -Lot number of Saline Used [id number] -Bleeding Controlled with Pressure Pressure Pressure -Treatment Response Procedure Procedure Procedure Tolerated Well Tolerated Well Tolerated Well -Offloading No No No -Debridement - Subq, 1st 20sq cm Yes No No -Apply Skin Sub - 1st 25 sq cm - Legs 1 1 -Epifix 18mm Disc 3 3 Pain Scale: 0-10 Numeric Is Patient Pain Free? Yes Yes Yes 08/09/23 10:22 Wound Center Nurse 2 #3 RT MED ANKLE -Time 10:22 -Correct Patient Yes -Correct Side, Site, Position Yes -Correct Procedure Yes -Procedure Performed Yes -Type of Procedure Debridement -Clinical Debridement Subcutaneous -Tissue Removed Subcutaneous -Post Debridement (cm) - Length 1.0 -Post Debridement (cm) - Width 0.6 -Post Debridement (cm) - Depth 0.2 -Total Square (Post) (cm) 0.60 -Area of Debridement (cm) - Length 1.0 -Area of Debridement (cm) - Width 0.6 -Total Square (Area) (cm) 0.60 -Tunneling No -Undermining/Tunneling No -Circular Undermining No -Wound/Ulcer Outcome Not Healed -Ulcer Cleansing Rinsed/ Irrigated with Saline -Foul Odor after Cleansing No -Bioengineered Tissue Yes -Type of Bioengineered Tissue Epifix 18mm Disc -Expiration Date 02/15/28 -Product Lot Number [id number] -Percent Used 100 -Lot number of Saline Used [id number] -Bleeding Controlled with Pressure -Treatment Response Procedure Not Tolerated Well -Offloading No -Debridement - Subq, 1st 20sq cm No -Apply Skin Sub - 1st 25 sq cm - Legs 1 -Epifix 18mm Disc 3 Pain Scale: 0-10 Numeric Is Patient Pain Free? Yes - Nurse 3 - General Ulcer D/C NN Start: 07/19/23 10:03 Freq: Status: Active Protocol: Activity Type Activity Date Activity User E-sign Co-sign Detail Recorded Client Recorded Date Recorded By Document 07/19/23 10:39 KW wound center 07/19/23 10:40 KW Document 08/02/23 10:06 KW g 08/02/23 10:06 KW Document 08/09/23 10:35 DL [email or web address] 08/09/23 10:36 DL 07/19/23 08/02/23 08/09/23 10:39 10:06 10:35 Wound Care Center Nurse 3 #3 RT MED ANKLE -Ulcer Cleansing Rinsed/ Irrigated with Saline -Foul Odor after Cleansing No -Primary Dressing Applied Mepilex Border Mepilex Border -Other Dressing PT OWN SANTYL -Primary Dressing Covered/Secured with Dry Gauze & Roll Gauze, Secured with Tape -Mepilex Border 1 1 Right -Multi-Layered Wrap Application Multi-Layer Comp - Right ($ ) -Tubular Bandage Single Layer Double Layer -Size of Tubigrip Used Size D Size D -Size D ($) 1 2 Treatment Response Procedure Tolerated Well Pain Scale: 0-10 Numeric Is Patient Pain Free? Yes Yes Yes WC - Visit Discharge Discharge Condition Stable Stable Stable Ambulatory Status Ambulatory, Ambulatory, Ambulatory Walker Walker Transportation Private Auto Private Auto Private Auto Medication Reconcilliation completed & No No provided to patient/care provider Clinical Summary of Care Provided Yes Yes Facility Type Home Health Orders Sent Yes Assessment/Plan Assessment/Plan (1) Non-pressure chronic ulcer of right ankle with fat layer exposed: CODE(S): L97.312 - Non-pressure chronic ulcer of right ankle with fat layer exposed PLAN: Exam performed Recent arterial studies within normal limits Patient has venous insufficiency with chronic venous venous leg ulceration right lower extremity Right lower extremity wound was excisionally debrided down to including level of subcutaneous tissue of all nonviable tissue using a throat 3 mm dermal curette. Patient tolerated procedure well. Topical anesthesia used. Pre and postdebridement measurements documented nursing notes. Hemostasis obtained with light compression. Today a 11 mm disc EpiFix graft was applied to the right lower extremity wound. Entire graft used no waste. Graft was secured with Adaptic and Steri-Strips. Hydrogel applied to overlying Adaptic graft site. Dressed with dry sterile dressing and 3M compression right lower extremity. Patient will follow-up in 1 week for continued care. (2) Venous insufficiency (chronic) (peripheral): CODE(S): I87.2 - Venous insufficiency (chronic) (peripheral)
== END 2023-08-14 23:59 | disposition home or self-care (01) ==
LOC: WC 10:00
PROVIDERS: Physician Assistant; PCP Family Medicine; Referring Provider Podiatrist; Visit Provider Podiatrist
DX: I87.2 Venous insufficiency (chronic) (peripheral) (principal); L97.312 Non-pressure chronic ulcer of right ankle with fat layer exposed; T81.31XA Disruption of external operation (surgical) wound, not elsewhere classified, initial encounter; Y84.9 Medical procedure, unspecified as the cause of abnormal reaction of the patient, or of later complication, without mention of misadventure at the time of the procedure; R30.0 Dysuria
CPT/HCPCS: 11042; 15271; 29581; 81001; 87086; 87088; 87186; Q4186

== ENCOUNTER → 2023-09-09 | Outpatient (CLI) | payer MEDICARE, OTHER, SELFPAY | END | disposition home or self-care (01) | PROVIDERS: PCP Family Medicine; Referring Provider Nurse Practitioner Acute Care; Visit Provider Nurse Practitioner Acute Care | DX: J47.1 Bronchiectasis with (acute) exacerbation (principal) | CPT/HCPCS: 87070; 87077; 87186; 87205 ==

== ENCOUNTER 2023-09-13 10:00 | Outpatient (RCR) | payer MEDICARE, OTHER, SELFPAY ==
[2023-08-15 00:37] VITALS: BP 142/63; PULSE 86; RESP 18; TEMP 35.8; BMI 102.8
[2023-08-16 09:51] VITALS: BP 170/69; PULSE 80; RESP 18; TEMP 36.2; BMI 102.8
--- NOTE | 2023-08-16 10:32 | PCM.WC.PN ---
History of Present Illness Date of Service: 08/16/23 Chief Complaint: Follow-up surgical wound dehiscence History of Wound: Patient has had this wound for several weeks and has noticed worsening with increased serous drainage. Patient denies any fever chills nausea vomiting chest pain calf pain shortness of breath.68-year-old female presents today with a venous leg ulceration to her right leg. Patient has no other complaints. Objective Data Objective Data Vital Signs: Vital Signs Temp Pulse Resp BP O2 Del Method 97.2 F L 80 18 170/69 H Room Air 08/16/23 09:51 08/16/23 09:51 08/16/23 09:51 08/16/23 09:51 08/16/23 09:51 Oxygen Delivery Method Room Air Weight: 108.409 kg Body Mass Index (BMI) 102.8 Physical Exam Narrative Vascular: Trophic changes to skin secondary to chronic venous insufficiency. Palpable dorsalis pedis and posterior tibial pulses, 2 out of 4 bilateral lower extremity. Atrophic changes noted to skin of the foot with skin thinning kind, shiny, taut appearance absent digital hair growth. Neurologic: Light touch protective sensation intact. No evidence of clonus or Babinski. Dermatologic: Full-thickness ulceration to the right medial ankle along course of great saphenous vein demonstrates a fibrogranular base. Pre and postdebridement measurements documented nursing notes. No deep probing or undermining. Some mild periwound erythema and warmth noted. No other signs of infection. Musculoskeletal: No pain with calf squeeze. No gross musculoskeletal deformity contributing to this wound formation. 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 Muscular strength is full to bilateral lower extremity compartments. Const alert and oriented x3 Debridement Note Debridement Note Post-Debridement Measurements and Additional Note: Post-Debridement Measurements/Treatment WC - Nurse 1 - General Ulcer Assessment Start: 08/16/23 09:51 Freq: Status: Active Protocol: [email or web address] Activity Type Activity Date Activity User E-sign Co-sign Detail Recorded Client Recorded Date Recorded By Document 08/16/23 09:51 KW z 08/16/23 09:59 KW 08/16/23 09:51 - Today's Visit Information Type of service Follow-up Visit (Physician/PORTABLE CANTEEN OPERATOR ) Arrival Mode Ambulatory, Walker Patient Identification Verified (Name & Yes ) Height and Weight Body Mass Index (BMI) 102.8 BMI Classification Obese Vital Signs Temperature (97.8 F-99.1 F) 97.2 F L Temperature Source Temporal Pulse Rate (60-100) 80 Pulse Location Monitor Respiratory Rate (12-18) 18 Respiratory rate source Observation Oxygen Delivery Method Room Air Blood Pressure (90/60-120/80) 170/69 H Blood Pressure Mean (mm Hg) 102 Source Monitor Position Sitting Blood Pressure Location Left Arm History Since Last Visit- (Skip if this is Patient's initial visit) Have you changed medications since your No last visit? Any new allergies or adverse reactions No Had a fall/change in ADL's that may No increase risk of falls Signs or symptoms of abuse and/or No neglect since last visit Have you been in the hospital since your No last visit? Has dressing in place as prescribed Yes Has compression in place as prescribed Yes Has offloadiing in place as prescribed Yes Experienced any changes in pain level or No management Left Footwear Removable Cast Walker/Walking Boot Right Footwear Surgical Shoe with pressure relief insole Pain Scale: 0-10 Numeric Is Patient Pain Free? Yes WC - Nurse 1 - General Ulcer Measurement Start: 08/16/23 09:51 Freq: Status: Active Protocol: Activity Type Activity Date Activity User E-sign Co-sign Detail Recorded Client Recorded Date Recorded By Document 08/16/23 09:51 KW z 08/16/23 09:59 KW 08/16/23 09:51 Wound Center Nurse 1 #3 RT MED ANKLE -Current Size (cm) - Length 1 -Current Size (cm) - Width 0.5 -Current Size (cm) - Depth 0.1 -Total Square Cm 0.5 -Exudate Amt Small -Exudate Type Serosanguineous -Wound Margin Distinct, Outline Attached -Necrosis Amt Large (67-100%) -Necrotic Tissue Type Eschar -Texture (Jagruti-wound Skin Appearance) Assessed -Moisture (Jagruti-wound Skin Appearance) Assessed -Color (Jagruti-wound Skin Appearance) Assessed -Temperature (Jagruti-wound Skin No Abnormality Appearance) (Pt Warm) -Tenderness on Palpation (Jagruti-wound No Skin Appearance) -Ulcer Cleansing Soap and Water -Foul Odor after Cleansing No -Anesthetic Used 5% Lidocaine Gel WC - Nurse 2 - General Ulcer CM Notes Start: 08/16/23 09:51 Freq: Status: Active Protocol: Activity Type Activity Date Activity User E-sign Co-sign Detail Recorded Client Recorded Date Recorded By Document 08/16/23 10:21 [id number] 08/16/23 10:22 08/16/23 10:21 Wound Center Nurse 2 -Time 10:22 -Correct Patient Yes -Correct Side, Site, Position Yes -Correct Procedure Yes -Procedure Performed Yes -Type of Procedure Debridement -Clinical Debridement Subcutaneous -Tissue Removed Subcutaneous -Post Debridement (cm) - Length 1.2 -Post Debridement (cm) - Width 0.5 -Post Debridement (cm) - Depth 0.2 -Total Square (Post) (cm) 0.60 -Area of Debridement (cm) - Length 1.2 -Area of Debridement (cm) - Width 0.5 -Total Square (Area) (cm) 0.60 -Tunneling No -Undermining/Tunneling No -Circular Undermining No -Wound/Ulcer Outcome Not Healed -Ulcer Cleansing Rinsed/ Irrigated with Saline -Foul Odor after Cleansing No -Bioengineered Tissue No -Bleeding Controlled with Pressure -Treatment Response Procedure Tolerated Well -Offloading No -Debridement - Subq, 1st 20sq cm Yes Pain Scale: 0-10 Numeric Is Patient Pain Free? Yes - Nurse 3 - General Ulcer D/C NN Start: 08/16/23 09:51 Freq: Status: Active Protocol: Activity Type Activity Date Activity User E-sign Co-sign Detail Recorded Client Recorded Date Recorded By Document 08/16/23 10:31 [facility] [email or web address] 08/16/23 10:31 [facility] 08/16/23 10:31 Wound Care Center Nurse 3 #3 RT MED ANKLE -Ulcer Cleansing Rinsed/ Irrigated with Saline -Foul Odor after Cleansing No -Other Dressing SANTYL -Primary Dressing Covered/Secured with Dry Gauze, Secured with Tape Right -Tubular Bandage Double Layer -Size of Tubigrip Used Size D -Size D ($) 1 Treatment Response Procedure Tolerated Well Pain Scale: 0-10 Numeric Is Patient Pain Free? Yes - Visit Discharge Discharge Condition Stable Ambulatory Status Ambulatory, Walker Transportation Private Auto Assessment/Plan Assessment/Plan (1) Non-pressure chronic ulcer of right ankle with fat layer exposed: CODE(S): L97.312 - Non-pressure chronic ulcer of right ankle with fat layer exposed PLAN: Exam performed Recent arterial studies within normal limits Patient has venous insufficiency with chronic venous venous leg ulceration right lower extremity Right lower extremity wound was excisionally debrided down to including level of subcutaneous tissue of all nonviable tissue using a throat 3 mm dermal curette. Patient tolerated procedure well. Topical anesthesia used. Pre and postdebridement measurements documented nursing notes. Hemostasis obtained with light compression. Patient will return to Santyl dressings with Tubigrip for compression. Patient will follow-up in 1 week for continued care. (2) Venous insufficiency (chronic) (peripheral): CODE(S): I87.2 - Venous insufficiency (chronic) (peripheral)
--- NOTE | 2023-08-22 09:51 | VDLE_ITS ---
Reason For Study: PVD RIGHT LEFT CFV is compressible, spontaneous, phasic, CFV is compressible, spontaneous, phasic, competent and demonstrates normal competent, and demonstrates normal augmentation. augmentation. FV is compressible, spontaneous, phasic, FV is compressible, spontaneous, phasic, competent and demonstrates normal competent and demonstrates normal augmentation. augmentation. POP V is compressible, spontaneous, phasic, POP V is compressible, spontaneous, phasic, competent and demonstrates normal competent and demonstrates normal augmentation. augmentation. T/P Trunk is compressible. T/P Trunk is compressible. PTV is compressible. PTV is compressible. RT PerV is compressible. LT PerV is compressible. SFJ is INCOMPETENT and measures 0.51 cm. SFJ is competent and measures 0.88 cm. GSV proximal thigh measures 0.41 X 0.41 cm. GSV proximal thigh measures 0.48 x 0.52 cm. GSV above knee is competent. GSV at knee measures 0.35 x 0.38 cm. Pt has HX of RT GSV EVLA GSV is competent throughout. Rt ASV is very tortuous with multiple SSV proximal calf is competent and measures branches noted. 0.15 x 0.16 cm. ASV proximal thigh is INCOMPETENT for greater than 0.5 seconds and measures 0.64 x 0.53 cm. ASV mid thigh is INCOMPETENT for greater than 0.5 seconds and measures 0.35 x 0.37 cm. ASV at knee is INCOMPETENT for greater than 0.5 seconds and measures 0.37 x 0.46 cm. ASV mid calf is INCOMPETENT for greater than 0.5 seconds and measures 0.32 cm. SSV proximal calf is competent and measures 0.16 x 0.18 cm. Procedure Exam performed in department. This is a venous duplex using B-mode, color flow and spectral Doppler. The exam was diagnostic. VL/Venous Duplex US - Sina Extrem Interpretation Summary Deep veins of the lower extremities are bilaterally patent and compressible seg mentally. There is no evidence of deep vein thrombosis on either side. Valvular competence appears in tact within the proximal deep venous systems bilaterally. The right sapheno-femoral junction is incompetent . The left sapheno-femoral junction is competent . The right great saphenous vein is absent due to a prior ablation procedure. The left great saphenous vein appears patent and compressib le segmentally. The left great saphenous vein appears segmentally competent. Small saphenous veins are patent and competent bilaterally. Accessory saphenous veins at the right proximal thigh, r ight mid-thigh, right knee, and right mid-calf are incompetent. Ordering Physician: Darrian Cavanaugh Referring Physician: Terry Donnelly MD Performed By: Vinh Danielle RVT
[2023-08-23 09:19] VITALS: BP 145/71; PULSE 87; RESP 18; TEMP 35.7; BMI 102.8
--- NOTE | 2023-08-23 09:37 | PN.PCM_ITS ---
History of Present Illness Date of Service: 08/23/23 Chief Complaint: Follow-up surgical wound dehiscence History of Wound: Patient has had this wound for several weeks and has noticed worsening with increased serous drainage. Patient denies any fever chills nausea vomiting chest pain calf pain shortness of breath.68-year-old female presents today with a venous leg ulceration to her right leg. Patient has no other complaints. Objective Data Objective Data Vital Signs: Vital Signs Temp Pulse Resp BP O2 Del Method 96.2 F L 87 18 145/71 H Room Air 08/23/23 09:19 08/23/23 09:19 08/23/23 09:19 08/23/23 09:19 08/23/23 09:19 Oxygen Delivery Method Room Air Weight: 108.409 kg Body Mass Index (BMI) 102.8 Radiography Diagnostic Testing: Radiology Impression Venous Doppler Study 08/22/23 09:51 Interpretation Summary Deep veins of the lower extremities are bilaterally patent and compressible segmentally. There is no evidence of deep vein thrombosis on either side. Valvular competence appears intact within the proximal deep venous systems bilaterally. The right sapheno-femoral junction is incompetent . The left sapheno-femoral junction is competent . The right great saphenous vein is absent due to a prior ablation procedure. The left great saphenous vein appears patent and compressible segmentally. The left great saphenous vein appears segmentally competent. Small saphenous veins are patent and competent bilaterally. Accessory saphenous veins at the right proximal thigh, right mid-thigh, right knee, and right mid-calf are incompetent. Ordering Physician: Darrian Cavanaugh Referring Physician: Terry Donnelly MD Performed By: Vinh Danielle RVT Physical Exam Narrative Vascular: Trophic changes to skin secondary to chronic venous insufficiency. Palpable dorsalis pedis and posterior tibial pulses, 2 out of 4 bilateral lower extremity. Atrophic changes noted to skin of the foot with skin thinning kind, shiny, taut appearance absent digital hair growth. Neurologic: Light touch protective sensation intact. No evidence of clonus or Babinski. Dermatologic: Full-thickness ulceration to the right medial ankle along course of great saphenous vein demonstrates a fibrogranular base. Pre and postdeb ridement measurements documented nursing notes. No deep probing or undermining. Some mild periwound erythema and warmth noted. No other signs of infection. Musculoskeletal: No pain with calf squeeze. No gross musculoskeletal deformity contributing to this wound formation. 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 Muscular strength is full to bilateral lower extremity compartments. Const alert and oriented x3 Debridement Note Debridement Note Post-Debridement Measurements and Additional Note: Post-Debridement Measurements/Treatment WC - Nurse 1 - General Ulcer Assessment Start: 08/16/23 09:51 Freq: Status: Active Protocol: WC.LOWEXT Activity Type Activity Date Activity User E-sign Co-sign Detail Recorded Client Recorded Date Recorded By Document 08/16/23 09:51 KW z 08/16/23 09:59 KW Document 08/23/23 09:19 KW l 08/23/23 09:25 KW 08/16/23 08/23/23 09:51 09:19 WC - Today's Visit Information Type of service Follow-up Visit Follow-up Visit (Physician/PUBLIC ADDRESS SYSTEM MECHANIC (Physician/PUBLIC ADDRESS SYSTEM MECHANIC ) ) Arrival Mode Ambulatory, Ambulatory, Walker Walker Patient Identification Verified (Name & Yes Yes ) Height and Weight Body Mass Index (BMI) 102.8 102.8 BMI Classification Obese Obese Vital Signs Temperature (97.8 F-99.1 F) 97.2 F L 96.2 F L Temperature Source Temporal Temporal Pulse Rate (60-100) 80 87 Pulse Location Monitor Monitor Respiratory Rate (12-18) 18 18 Respiratory rate source Observation Observation Oxygen Delivery Method Room Air Room Air Blood Pressure (90/60-120/80) 170/69 H 145/71 H Blood Pressure Mean (mm Hg) 102 95 Source Monitor Monitor Position Sitting Sitting Blood Pressure Location Left Arm Left Arm History Since Last Visit- (Skip if this is Patient's initial visit) Have you changed medications since your No No last visit? Any new allergies or adverse reactions No No Had a fall/change in ADL's that may No No increase risk of falls Signs or symptoms of abuse and/or No No neglect since last visit Have you been in the hospital since your No No last visit? Has dressing in place as prescribed Yes Yes Has compression in place as prescribed Yes Yes Has offloadiing in place as prescribed Yes Yes Experienced any changes in pain level or No No management Left Footwear Removable Cast Removable Cast Walker/Walking Walker/Walking Boot Boot Right Footwear Surgical Shoe Surgical Shoe with pressure with pressure relief insole relief insole Pain Scale: 0-10 Numeric Is Patient Pain Free? Yes Yes WC - Nurse 1 - General Ulcer Measurement Start: 08/16/23 09:51 Freq: Status: Active Protocol: Activity Type Activity Date Activity User E-sign Co-sign Detail Recorded Client Recorded Date Recorded By Document 08/16/23 09:51 KW z 08/16/23 09:59 KW Document 08/23/23 09:19 KW l 08/23/23 09:25 KW 08/16/23 08/23/23 09:51 09:19 Wound Center Nurse 1 #3 RT MED ANKLE -Current Size (cm) - Length 1 1.6 -Current Size (cm) - Width 0.5 0.3 -Current Size (cm) - Depth 0.1 0.3 -Total Square Cm 0.5 0.48 -Date of Last Picture (Recall this 08/23/23 field) -Exudate Amt Small None Present -Exudate Type Serosanguineous -Wound Margin Distinct, Distinct, Outline Outline Attached Attached -Granulation Amt Small (1-33%) -Granulation Quality [place] -Necrosis Amt Large (67-100%) Large (67-100%) -Necrotic Tissue Type Eschar Adherent Slough -Texture (Jagruti-wound Skin Appearance) Assessed Assessed -Moisture (Jagruti-wound Skin Appearance) Assessed Assessed -Color (Jagruti-wound Skin Appearance) Assessed Assessed -Temperature (Jagruti-wound Skin No Abnormality No Abnormality Appearance) (Pt Warm) (Pt Warm) -Tenderness on Palpation (Jagruti-wound No No Skin Appearance) -Ulcer Cleansing Soap and Water Rinsed/ Irrigated with Saline -Foul Odor after Cleansing No No -Anesthetic Used 5% Lidocaine 5% Lidocaine Gel Gel Right Calf (cm) 32.7 Right Ankle (cm) 20 WC - Nurse 2 - General Ulcer CM Notes Start: 08/16/23 09:51 Freq: Status: Active Protocol: Activity Type Activity Date Activity User E-sign Co-sign Detail Recorded Client Recorded Date Recorded By Document 08/16/23 10:21 [id number] 08/16/23 10:22 Document 08/23/23 09:31 JF 0000 08/23/23 09:35 JF 08/16/23 08/23/23 10:21 09:31 Wound Center Nurse 2 #3 RT MED ANKLE -Time 10:22 09:32 -Correct Patient Yes Yes -Correct Side, Site, Position Yes Yes -Correct Procedure Yes Yes -Procedure Performed Yes Yes -Type of Procedure Debridement Debridement -Clinical Debridement Subcutaneous Subcutaneous -Tissue Removed Subcutaneous Subcutaneous -Post Debridement (cm) - Length 1.2 1.1 -Post Debridement (cm) - Width 0.5 0.4 -Post Debridement (cm) - Depth 0.2 0.3 -Total Square (Post) (cm) 0.60 0.44 -Area of Debridement (cm) - Length 1.2 1.1 -Area of Debridement (cm) - Width 0.5 0.4 -Total Square (Area) (cm) 0.60 0.44 -Tunneling No No -Undermining/Tunneling No No -Circular Undermining No No -Wound/Ulcer Outcome Not Healed Not Healed -Ulcer Cleansing Rinsed/ Rinsed/ Irrigated with Irrigated with Saline Saline -Foul Odor after Cleansing No No -Bioengineered Tissue No -Bleeding Controlled with Pressure Pressure -Treatment Response Procedure Procedure Tolerated Well Tolerated Well -Offloading No No -Debridement - Subq, 1st 20sq cm Yes Yes Pain Scale: 0-10 Numeric Is Patient Pain Free? Yes Yes - Nurse 3 - General Ulcer D/C NN Start: 08/16/23 09:51 Freq: Status: Active Protocol: Activity Type Activity Date Activity User E-sign Co-sign Detail Recorded Client Recorded Date Recorded By Document 08/16/23 10:31 [facility] [id number] 08/16/23 10:31 [facility] 08/16/23 10:31 Wound Care Center Nurse 3 #3 RT MED ANKLE -Ulcer Cleansing Rinsed/ Irrigated with Saline -Foul Odor after Cleansing No -Other Dressing SANTYL -Primary Dressing Covered/Secured with Dry Gauze, Secured with Tape Right -Tubular Bandage Double Layer -Size of Tubigrip Used Size D -Size D ($) 1 Treatment Response Procedure Tolerated Well Pain Scale: 0-10 Numeric Is Patient Pain Free? Yes WC - Visit Discharge Discharge Condition Stable Ambulatory Status Ambulatory, Walker Transportation Private Auto Assessment/Plan Assessment/Plan (1) Non-pressure chronic ulcer of right ankle with fat layer exposed: CODE(S): L97.312 - Non-pressure chronic ulcer of right ankle with fat layer exposed PLAN: Exam performed Recent arterial studies within normal limits Patient has venous insufficiency with chronic venous venous leg ulceration right lower extremity Recent venous studies reviewed with patient, will plan for vascular referral Right lower extremity wound was excisionally debrided down to including level of subcutaneous tissue of all nonviable tissue using a throat 3 mm dermal curette. Patient tolerated procedure well. Topical anesthesia used. Pre and postdebridement measurements documented nursing notes. Hemostasis obtained with light compression. Patient will return to Santyl dressings with Tubigrip for compression. Patient will follow-up in 1 week for continued care. (2) Venous insufficiency (chronic) (peripheral): CODE(S): I87.2 - Venous insufficiency (chronic) (peripheral)
--- NOTE | 2023-08-25 09:38 | WC ---
PHOTO 08/23/2023 RIGHT MEDIAL ANKLE
[2023-08-30 09:48] VITALS: BP 146/54; PULSE 91; RESP 18; TEMP 36.6; BMI 102.8
--- NOTE | 2023-08-30 11:07 | PCM.WC.PN ---
History of Present Illness Date of Service: 08/30/23 Chief Complaint: Follow-up surgical wound dehiscence History of Wound: Patient has had this wound for several weeks and has noticed worsening with increased serous drainage. Patient denies any fever chills nausea vomiting chest pain calf pain shortness of breath.68-year-old female presents today with a venous leg ulceration to her right leg. Patient has no other complaints. Objective Data Objective Data Vital Signs: Vital Signs Temp Pulse Resp BP O2 Del Method 97.8 F 91 18 146/54 H Room Air 08/30/23 09:48 08/30/23 09:48 08/30/23 09:48 08/30/23 09:48 08/23/23 09:19 Oxygen Delivery Method Room Air Weight: 108.409 kg Body Mass Index (BMI) 102.8 Physical Exam Narrative Vascular: Trophic changes to skin secondary to chronic venous insufficiency. Palpable dorsalis pedis and posterior tibial pulses, 2 out of 4 bilateral lower extremity. Atrophic changes noted to skin of the foot with skin thinning kind, shiny, taut appearance absent digital hair growth. Neurologic: Light touch protective sensation intact. No evidence of clonus or Babinski. Dermatologic: Full-thickness ulceration to the right medial ankle along course of great saphenous vein demonstrates a fibrogranular base. Pre and postdebridement measurements documented nursing notes. No deep probing or undermining. Some mild periwound erythema and warmth noted. No other signs of infection. Musculoskeletal: No pain with calf squeeze. No gross musculoskeletal deformity contributing to this wound formation. 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 Muscular strength is full to bilateral lower extremity compartments. Const alert and oriented x3 Debridement Note Debridement Note Post-Debridement Measurements and Additional Note: Post-Debridement Measurements/Treatment WC - Nurse 1 - General Ulcer Assessment Start: 08/16/23 09:51 Freq: Status: Active Protocol: FABRIZIO.ANNAEXT Activity Type Activity Date Activity User E-sign Co-sign Detail Recorded Client Recorded Date Recorded By Document 08/16/23 09:51 KW z 08/16/23 09:59 KW Document 08/23/23 09:19 KW l 08/23/23 09:25 KW Document 08/30/23 09:48 DL 10.10.25.7 08/30/23 09:56 DL 08/16/23 08/23/23 08/30/23 09:51 09:19 09:48 WC - Today's Visit Information Type of service Follow-up Visit Follow-up Visit Follow-up Visit (Physician/ADMISSIONS MANAGER RN (Physician/ADMISSIONS MANAGER RN (Physician/ADMISSIONS MANAGER RN ) ) ) Arrival Mode Ambulatory, Ambulatory, Ambulatory Walker Walker Transfer Assistance None Patient Identification Verified (Name & Yes Yes Yes ) Patient Requires Transmission-Based No Precautions Height and Weight Body Mass Index (BMI) 102.8 102.8 102.8 BMI Classification Obese Obese Obese Vital Signs Temperature (97.8 F-99.1 F) 97.2 F L 96.2 F L 97.8 F Temperature Source Temporal Temporal Temporal Pulse Rate (60-100) 80 87 91 Pulse Location Monitor Monitor Monitor Respiratory Rate (12-18) 18 18 18 Respiratory rate source Observation Observation Observation Oxygen Delivery Method Room Air Room Air Blood Pressure (90/60-120/80) 170/69 H 145/71 H 146/54 H Blood Pressure Mean (mm Hg) 102 95 84 Source Monitor Monitor Monitor Position Sitting Sitting Blood Pressure Location Left Arm Left Arm History Since Last Visit- (Skip if this is Patient's initial visit) Have you changed medications since your No No No last visit? Any new allergies or adverse reactions No No No Had a fall/change in ADL's that may No No No increase risk of falls Signs or symptoms of abuse and/or No No No neglect since last visit Have you been in the hospital since your No No No last visit? Has dressing in place as prescribed Yes Yes Yes Has compression in place as prescribed Yes Yes Yes Has offloadiing in place as prescribed Yes Yes Yes Experienced any changes in pain level or No No No management Left Footwear Removable Cast Removable Cast Walker/Walking Walker/Walking Boot Boot Right Footwear Surgical Shoe Surgical Shoe with pressure with pressure relief insole relief insole Pain Scale: 0-10 Numeric Is Patient Pain Free? Yes Yes Yes - Nurse 1 - General Ulcer Measurement Start: 08/16/23 09:51 Freq: Status: Active Protocol: Activity Type Activity Date Activity User E-sign Co-sign Detail Recorded Client Recorded Date Recorded By Document 08/16/23 09:51 KW z 08/16/23 09:59 KW Document 08/23/23 09:19 KW l 08/23/23 09:25 KW Document 08/30/23 09:48 DL 10..25.7 08/30/23 09:56 DL 08/16/23 08/23/23 08/30/23 09:51 09:19 09:48 Wound Center Nurse 1 #3 RT MED ANKLE -Current Size (cm) - Length 1 1.6 0.9 -Current Size (cm) - Width 0.5 0.3 0.4 -Current Size (cm) - Depth 0.1 0.3 0.4 -Total Square Cm 0.5 0.48 0.36 -Date of Last Picture (Recall this 08/23/23 field) -Exudate Amt Small None Present Small -Exudate Type Serosanguineous Serosanguineous -Wound Margin Distinct, Distinct, Distinct, Outline Outline Outline Attached Attached Attached -Granulation Amt Small (1-33%) None Present (0 %) -Granulation Quality [place] -Necrosis Amt Large (67-100%) Large (67-100%) Small (1-33%) -Necrotic Tissue Type Eschar Adherent Slough Eschar -Structure Exposed N/A -Texture (Jagruti-wound Skin Appearance) Assessed Assessed Scarring -Moisture (Jagruti-wound Skin Appearance) Assessed Assessed No Abnormality -Color (Jagruti-wound Skin Appearance) Assessed Assessed No Abnormality -Temperature (Jagruti-wound Skin No Abnormality No Abnormality No Abnormality Appearance) (Pt Warm) (Pt Warm) (Pt Warm) -Tenderness on Palpation (Jarguti-wound No No No Skin Appearance) -Ulcer Cleansing Soap and Water Rinsed/ Rinsed/ Irrigated with Irrigated with Saline Saline -Foul Odor after Cleansing No No No -Anesthetic Used 5% Lidocaine 5% Lidocaine 5% Lidocaine Gel Gel Gel Right Calf (cm) 32.7 33 Right Ankle (cm) 20 21.2 WC - Nurse 2 - General Ulcer CM Notes Start: 08/16/23 09:51 Freq: Status: Active Protocol: Activity Type Activity Date Activity User E-sign Co-sign Detail Recorded Client Recorded Date Recorded By Document 08/16/23 10:21 [id number] 08/16/23 10:22 JF Document 08/23/23 09:31 JF 0000 08/23/23 09:35 Document 08/30/23 10:46 [facility] ..25.7 08/30/23 10:48 BMF 08/16/23 08/23/23 08/30/23 10:21 09:31 10:46 Wound Center Nurse 2 #3 RT MED ANKLE -Time 10:22 09:32 10:46 -Correct Patient Yes Yes Yes -Correct Side, Site, Position Yes Yes Yes -Correct Procedure Yes Yes Yes -Procedure Performed Yes Yes Yes -Type of Procedure Debridement Debridement Debridement -Clinical Debridement Subcutaneous Subcutaneous Subcutaneous -Tissue Removed Subcutaneous Subcutaneous Subcutaneous -Post Debridement (cm) - Length 1.2 1.1 1 -Post Debridement (cm) - Width 0.5 0.4 0.4 -Post Debridement (cm) - Depth 0.2 0.3 0.1 -Total Square (Post) (cm) 0.60 0.44 0.4 -Area of Debridement (cm) - Length 1.2 1.1 1 -Area of Debridement (cm) - Width 0.5 0.4 0.4 -Total Square (Area) (cm) 0.60 0.44 0.4 -Tunneling No No No -Undermining/Tunneling No No No -Circular Undermining No No No -Wound/Ulcer Outcome Not Healed Not Healed Not Healed -Ulcer Cleansing Rinsed/ Rinsed/ Rinsed/ Irrigated with Irrigated with Irrigated with Saline Saline Saline -Foul Odor after Cleansing No No No -Bioengineered Tissue No No -Bleeding Controlled with Pressure Pressure Pressure -Treatment Response Procedure Procedure Procedure Tolerated Well Tolerated Well Tolerated Well -Offloading No No -Debridement - Subq, 1st 20sq cm Yes Yes Yes Pain Scale: 0-10 Numeric Is Patient Pain Free? Yes Yes Yes WC - Nurse 3 - General Ulcer D/C NN Start: 08/16/23 09:51 Freq: Status: Active Protocol: Activity Type Activity Date Activity User E-sign Co-sign Detail Recorded Client Recorded Date Recorded By Document 08/16/23 10:31 [facility] ..25.7 08/16/23 10:31 BMF Document 08/23/23 09:41 DL ..25.7 08/23/23 09:43 DL Document 08/30/23 11:01 KW ; 08/30/23 11:02 KW 08/16/23 08/23/23 08/30/23 10:31 09:41 11:01 Wound Care Center Nurse 3 #3 RT MED ANKLE -Ulcer Cleansing Rinsed/ Rinsed/ Irrigated with Irrigated with Saline Saline -Foul Odor after Cleansing No No -Other Dressing SANTYL santyl PT SANTYL -Primary Dressing Covered/Secured with Dry Gauze, Dry Gauze & Dry Gauze, Secured with Roll Gauze, Secured with Tape Secured with Tape Tape -Other Covering triamcinolone to periulcer Right -Tubular Bandage Double Layer Double Layer -Size of Tubigrip Used Size D Size D -Size D ($) 1 2 -Other PT OWN TUBIGRIP Treatment Response Procedure Procedure Tolerated Well Tolerated Well Pain Scale: 0-10 Numeric Is Patient Pain Free? Yes Yes Yes WC - Visit Discharge Discharge Condition Stable Stable Stable Ambulatory Status Ambulatory, Ambulatory, Ambulatory, Walker Walker Walker Transportation Private Auto Private Auto Private Auto Assessment/Plan Assessment/Plan (1) Non-pressure chronic ulcer of right ankle with fat layer exposed: CODE(S): L97.312 - Non-pressure chronic ulcer of right ankle with fat layer exposed PLAN: Exam performed Recent arterial studies within normal limits Patient has venous insufficiency with chronic venous venous leg ulceration right lower extremity Recent venous studies reviewed with patient, will plan for vascular referral Right lower extremity wound was excisionally debrided down to including level of subcutaneous tissue of all nonviable tissue using a throat 3 mm dermal curette. Patient tolerated procedure well. Topical anesthesia used. Pre and postdebridement measurements documented nursing notes. Hemostasis obtained with light compression. Patient will return to Santyl dressings with Tubigrip for compression. Patient will follow-up in 1 week for continued care. (2) Venous insufficiency (chronic) (peripheral): CODE(S): I87.2 - Venous insufficiency (chronic) (peripheral)
[2023-09-13 10:00] VITALS: BP 150/79; PULSE 94; RESP 18; TEMP 36.4; BMI 102.8
--- NOTE | 2023-09-13 10:18 | PCM.WC.PN ---
History of Present Illness Date of Service: 09/13/23 Chief Complaint: Follow-up surgical wound dehiscence History of Wound: Patient has had this wound for several weeks and has noticed worsening with increased serous drainage. Patient denies any fever chills nausea vomiting chest pain calf pain shortness of breath.68-year-old female presents today with a venous leg ulceration to her right leg. Patient has no other complaints. Subjective Subjective Follow up on right ankle wound denies constitutionals denies pain no other complaints Objective Data Objective Data Vital Signs: Vital Signs Temp Pulse Resp BP O2 Del Method 97.5 F L 94 18 150/79 H Room Air 09/13/23 10:00 09/13/23 10:00 09/13/23 10:00 09/13/23 10:00 08/23/23 09:19 Oxygen Delivery Method Room Air Weight: 108.409 kg Body Mass Index (BMI) 102.8 Physical Exam Narrative Vascular: Trophic changes to skin secondary to chronic venous insufficiency. Palpable dorsalis pedis and posterior tibial pulses, 2 out of 4 bilateral lower extremity. Atrophic changes noted to skin of the foot with skin thinning kind, shiny, taut appearance absent digital hair growth. Neurologic: Light touch protective sensation intact. No evidence of clonus or Babinski. Dermatologic: Full-thickness ulceration to the right medial ankle along course of great saphenous vein demonstrates a fibrogranular base. Pre and postdebridement measurements documented nursing notes. No deep probing or undermining. Some mild periwound erythema and warmth noted. No other signs of infection. Musculoskeletal: No pain with calf squeeze. No gross musculoskeletal deformity contributing to this wound formation. 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 Muscular strength is full to bilateral lower extremity compartments. Const alert and oriented x3 Debridement Note Debridement Note Post-Debridement Measurements and Additional Note: Post-Debridement Measurements/Treatment WC - Nurse 1 - General Ulcer Assessment Start: 08/16/23 09:51 Freq: Status: Active Protocol: FABRIZIO.LOWEXT Activity Type Activity Date Activity User E-sign Co-sign Detail Recorded Client Recorded Date Recorded By Document 08/16/23 09:51 KW z 08/16/23 09:59 KW Document 08/23/23 09:19 KW l 08/23/23 09:25 KW Document 08/30/23 09:48 DL [email or web address] 08/30/23 09:56 DL Document 09/13/23 10:00 RB wound 09/13/23 10:01 RB 08/16/23 08/23/23 08/30/23 09:51 09:19 09:48 WC - Today's Visit Information Type of service Follow-up Visit Follow-up Visit Follow-up Visit (Physician/DIRECTOR OF GRADUATE ADMISSIONS (Physician/DIRECTOR OF GRADUATE ADMISSIONS (Physician/DIRECTOR OF GRADUATE ADMISSIONS ) ) ) Arrival Mode Ambulatory, Ambulatory, Ambulatory Walker Walker Transfer Assistance None Patient Identification Verified (Name & Yes Yes Yes ) Patient Requires Transmission-Based No Precautions Height and Weight Body Mass Index (BMI) 102.8 102.8 102.8 BMI Classification Obese Obese Obese Vital Signs Temperature (97.8 F-99.1 F) 97.2 F L 96.2 F L 97.8 F Temperature Source Temporal Temporal Temporal Pulse Rate (60-100) 80 87 91 Pulse Location Monitor Monitor Monitor Respiratory Rate (12-18) 18 18 18 Respiratory rate source Observation Observation Observation Oxygen Delivery Method Room Air Room Air Blood Pressure (90/60-120/80) 170/69 H 145/71 H 146/54 H Blood Pressure Mean (mm Hg) 102 95 84 Source Monitor Monitor Monitor Position Sitting Sitting Blood Pressure Location Left Arm Left Arm History Since Last Visit- (Skip if this is Patient's initial visit) Have you changed medications since your No No No last visit? Any new allergies or adverse reactions No No No Had a fall/change in ADL's that may No No No increase risk of falls Signs or symptoms of abuse and/or No No No neglect since last visit Have you been in the hospital since your No No No last visit? Has dressing in place as prescribed Yes Yes Yes Has compression in place as prescribed Yes Yes Yes Has offloadiing in place as prescribed Yes Yes Yes Experienced any changes in pain level or No No No management Left Footwear Removable Cast Removable Cast Walker/Walking Walker/Walking Boot Boot Right Footwear Surgical Shoe Surgical Shoe with pressure with pressure relief insole relief insole Pain Scale: 0-10 Numeric Is Patient Pain Free? Yes Yes Yes 09/13/23 10:00 WC - Today's Visit Information Type of service Follow-up Visit (Physician/DIRECTOR OF GRADUATE ADMISSIONS ) Arrival Mode Ambulatory Transfer Assistance None Patient Identification Verified (Name & Yes ) Patient Requires Transmission-Based No Precautions Height and Weight Body Mass Index (BMI) 102.8 BMI Classification Obese Vital Signs Temperature (97.8 F-99.1 F) 97.5 F L Temperature Source Temporal Pulse Rate (60-100) 94 Pulse Location Monitor Respiratory Rate (12-18) 18 Respiratory rate source Observation Oxygen Delivery Method Blood Pressure (90/60-120/80) 150/79 H Blood Pressure Mean (mm Hg) 102 Source Monitor Position Semi-Fowlers Blood Pressure Location Left Arm History Since Last Visit- (Skip if this is Patient's initial visit) Have you changed medications since your No last visit? Any new allergies or adverse reactions No Had a fall/change in ADL's that may No increase risk of falls Signs or symptoms of abuse and/or No neglect since last visit Have you been in the hospital since your No last visit? Has dressing in place as prescribed Yes Has compression in place as prescribed Yes Has offloadiing in place as prescribed No Experienced any changes in pain level or No management Left Footwear Right Footwear Pain Scale: 0-10 Numeric Is Patient Pain Free? Yes WC - Nurse 1 - General Ulcer Measurement Start: 08/16/23 09:51 Freq: Status: Active Protocol: Activity Type Activity Date Activity User E-sign Co-sign Detail Recorded Client Recorded Date Recorded By Document 08/16/23 09:51 KW z 08/16/23 09:59 KW Document 08/23/23 09:19 KW l 08/23/23 09:25 KW Document 08/30/23 09:48 DL [email or web address] 08/30/23 09:56 DL Document 09/13/23 10:00 RB wound 09/13/23 10:01 RB 08/16/23 08/23/23 08/30/23 09:51 09:19 09:48 Wound Center Nurse 1 #3 RT MED ANKLE -Combined with other wound -Current Size (cm) - Length 1 1.6 0.9 -Current Size (cm) - Width 0.5 0.3 0.4 -Current Size (cm) - Depth 0.1 0.3 0.4 -Total Square Cm 0.5 0.48 0.36 -Date of Last Picture (Recall this 08/23/23 field) -Photo Taken -Tunneling -Undermining/Tunneling -Circular Undermining -Exudate Amt Small None Present Small -Exudate Type Serosanguineous Serosanguineous -Wound Margin Distinct, Distinct, Distinct, Outline Outline Outline Attached Attached Attached -Granulation Amt Small (1-33%) None Present (0 %) -Granulation Quality [place] -Slough/Fibrin -Necrosis Amt Large (67-100%) Large (67-100%) Small (1-33%) -Necrotic Tissue Type Eschar Adherent Slough Eschar -Structure Exposed N/A -Texture (Jagruti-wound Skin Appearance) Assessed Assessed Scarring -Moisture (Jagruti-wound Skin Appearance) Assessed Assessed No Abnormality -Color (Jagruti-wound Skin Appearance) Assessed Assessed No Abnormality -Temperature (Jagruti-wound Skin No Abnormality No Abnormality No Abnormality Appearance) (Pt Warm) (Pt Warm) (Pt Warm) -Tenderness on Palpation (Jagruti-wound No No No Skin Appearance) -Ulcer Cleansing Soap and Water Rinsed/ Rinsed/ Irrigated with Irrigated with Saline Saline -Foul Odor after Cleansing No No No -Anesthetic Used 5% Lidocaine 5% Lidocaine 5% Lidocaine Gel Gel Gel Lower Limb Edema Present Right Calf (cm) 32.7 33 Right Ankle (cm) 20 21.2 09/13/23 10:00 Wound Center Nurse 1 #3 RT MED ANKLE -Combined with other wound No -Current Size (cm) - Length 0.6 -Current Size (cm) - Width 0.4 -Current Size (cm) - Depth 0.2 -Total Square Cm 0.24 -Date of Last Picture (Recall this field) -Photo Taken Yes -Tunneling No -Undermining/Tunneling No -Circular Undermining No -Exudate Amt Medium -Exudate Type Serosanguineous -Wound Margin Thickened & Rolled Under -Granulation Amt Medium (34-66%) -Granulation Quality [place] -Slough/Fibrin Yes -Necrosis Amt Medium (34-66%) -Necrotic Tissue Type Adherent Slough -Structure Exposed N/A -Texture (Jagruti-wound Skin Appearance) Assessed -Moisture (Jagruti-wound Skin Appearance) Assessed -Color (Jagruti-wound Skin Appearance) Assessed -Temperature (Jagruti-wound Skin No Abnormality Appearance) (Pt Warm) -Tenderness on Palpation (Jagruti-wound No Skin Appearance) -Ulcer Cleansing Wound Cleanser -Foul Odor after Cleansing No -Anesthetic Used 5% Lidocaine Gel Lower Limb Edema Present Yes Right Calf (cm) 34 Right Ankle (cm) 20.8 - Nurse 2 - General Ulcer CM Notes Start: 08/16/23 09:51 Freq: Status: Active Protocol: Activity Type Activity Date Activity User E-sign Co-sign Detail Recorded Client Recorded Date Recorded By Document 08/16/23 10:21 [id number] 08/16/23 10:22 Document 08/23/23 09:31 JF 0000 08/23/23 09:35 Document 08/30/23 10:46 [facility] [email or web address] 08/30/23 10:48 [facility] Document 09/13/23 10:11 0000 09/13/23 10:14 JF 08/16/23 08/23/23 08/30/23 10:21 09:31 10:46 Wound Center Nurse 2 #3 RT MED ANKLE -Time 10:22 09:32 10:46 -Correct Patient Yes Yes Yes -Correct Side, Site, Position Yes Yes Yes -Correct Procedure Yes Yes Yes -Procedure Performed Yes Yes Yes -Type of Procedure Debridement Debridement Debridement -Clinical Debridement Subcutaneous Subcutaneous Subcutaneous -Tissue Removed Subcutaneous Subcutaneous Subcutaneous -Post Debridement (cm) - Length 1.2 1.1 1 -Post Debridement (cm) - Width 0.5 0.4 0.4 -Post Debridement (cm) - Depth 0.2 0.3 0.1 -Total Square (Post) (cm) 0.60 0.44 0.4 -Area of Debridement (cm) - Length 1.2 1.1 1 -Area of Debridement (cm) - Width 0.5 0.4 0.4 -Total Square (Area) (cm) 0.60 0.44 0.4 -Tunneling No No No -Undermining/Tunneling No No No -Circular Undermining No No No -Wound/Ulcer Outcome Not Healed Not Healed Not Healed -Ulcer Cleansing Rinsed/ Rinsed/ Rinsed/ Irrigated with Irrigated with Irrigated with Saline Saline Saline -Foul Odor after Cleansing No No No -Bioengineered Tissue No No -Bleeding Controlled with Pressure Pressure Pressure -Treatment Response Procedure Procedure Procedure Tolerated Well Tolerated Well Tolerated Well -Offloading No No -Debridement - Subq, 1st 20sq cm Yes Yes Yes Pain Scale: 0-10 Numeric Is Patient Pain Free? Yes Yes Yes 09/13/23 10:11 Wound Center Nurse 2 #3 RT MED ANKLE -Time 10:11 -Correct Patient Yes -Correct Side, Site, Position Yes -Correct Procedure Yes -Procedure Performed Yes -Type of Procedure Debridement -Clinical Debridement Subcutaneous -Tissue Removed Subcutaneous -Post Debridement (cm) - Length 0.4 -Post Debridement (cm) - Width 1.0 -Post Debridement (cm) - Depth 0.3 -Total Square (Post) (cm) 0.40 -Area of Debridement (cm) - Length 0.4 -Area of Debridement (cm) - Width 1.0 -Total Square (Area) (cm) 0.40 -Tunneling No -Undermining/Tunneling No -Circular Undermining No -Wound/Ulcer Outcome Not Healed -Ulcer Cleansing Rinsed/ Irrigated with Saline -Foul Odor after Cleansing No -Bioengineered Tissue No -Bleeding Controlled with Pressure -Treatment Response Procedure Tolerated Well -Offloading No -Debridement - Subq, 1st 20sq cm Yes Pain Scale: 0-10 Numeric Is Patient Pain Free? Yes WC - Nurse 3 - General Ulcer D/C NN Start: 08/16/23 09:51 Freq: Status: Active Protocol: Activity Type Activity Date Activity User E-sign Co-sign Detail Recorded Client Recorded Date Recorded By Document 08/16/23 10:31 [facility] 10.10.25.7 08/16/23 10:31 BM Document 08/23/23 09:41 DL [email or web address] 08/23/23 09:43 DL Document 08/30/23 11:01 KW ; 08/30/23 11:02 KW 08/16/23 08/23/23 08/30/23 10:31 09:41 11:01 Wound Care Center Nurse 3 #3 RT MED ANKLE -Ulcer Cleansing Rinsed/ Rinsed/ Irrigated with Irrigated with Saline Saline -Foul Odor after Cleansing No No -Other Dressing SANTYL santyl PT SANTYL -Primary Dressing Covered/Secured with Dry Gauze, Dry Gauze & Dry Gauze, Secured with Roll Gauze, Secured with Tape Secured with Tape Tape -Other Covering triamcinolone to periulcer Right -Tubular Bandage Double Layer Double Layer -Size of Tubigrip Used Size D Size D -Size D ($) 1 2 -Other PT OWN TUBIGRIP Treatment Response Procedure Procedure Tolerated Well Tolerated Well Pain Scale: 0-10 Numeric Is Patient Pain Free? Yes Yes Yes WC - Visit Discharge Discharge Condition Stable Stable Stable Ambulatory Status Ambulatory, Ambulatory, Ambulatory, Walker Walker Walker Transportation Private Auto Private Auto Private Auto Assessment/Plan Assessment/Plan (1) Non-pressure chronic ulcer of right ankle with fat layer exposed: CODE(S): L97.312 - Non-pressure chronic ulcer of right ankle with fat layer exposed PLAN: Exam performed Recent arterial studies within normal limits Patient has venous insufficiency with chronic venous venous leg ulceration right lower extremity Recent venous studies reviewed with patient, will plan for vascular referral Right lower extremity wound was excisionally debrided down to including level of subcutaneous tissue of all nonviable tissue using a throat 3 mm dermal curette. Patient tolerated procedure well. Topical anesthesia used. Pre and postdebridement measurements documented nursing notes. Hemostasis obtained with light compression. Patient will return to Santyl dressings with Tubigrip for compression. Patient will follow-up in 1 week for continued care. (2) Venous insufficiency (chronic) (peripheral): CODE(S): I87.2 - Venous insufficiency (chronic) (peripheral)
== END 2023-09-14 23:59 | disposition home or self-care (01) ==
LOC: WC 10:00
PROVIDERS: PCP Family Medicine; Referring Provider Podiatrist; Visit Provider Podiatrist
DX: T81.31XA Disruption of external operation (surgical) wound, not elsewhere classified, initial encounter (principal); L97.312 Non-pressure chronic ulcer of right ankle with fat layer exposed; I87.2 Venous insufficiency (chronic) (peripheral); I73.9 Peripheral vascular disease, unspecified
CPT/HCPCS: 11042; 93970

== ENCOUNTER 2023-10-11 10:30 | Outpatient (RCR) | payer MEDICARE, OTHER, SELFPAY ==
[2023-09-15 00:18] VITALS: BP 142/63; PULSE 86; RESP 18; TEMP 35.8; BMI 102.8
[2023-10-04 10:39] VITALS: BP 130/88; PULSE 94; RESP 18; TEMP 35.9; BMI 102.8
--- NOTE | 2023-10-04 11:17 | PN.PCM_ITS ---
History of Present Illness Date of Service: 10/04/23 Chief Complaint: Follow-up surgical wound dehiscence History of Wound: Patient has had this wound for several weeks and has noticed worsening with increased serous drainage. Patient denies any fever chills nausea vomiting chest pain calf pain shortness of breath.68-year-old female presents today with a venous leg ulceration to her right leg. Patient has no other complaints. Objective Data Objective Data Vital Signs: Vital Signs Temp Pulse Resp BP O2 Del Method 96.6 F L 94 18 130/88 H Room Air 10/04/23 10:39 10/04/23 10:39 10/04/23 10:39 10/04/23 10:39 10/04/23 10:39 Oxygen Delivery Method Room Air Weight: 108.409 kg Body Mass Index (BMI) 102.8 Physical Exam Narrative Neurovascular status unchanged. Full-thickness wound to right medial ankle demonstrates fibrotic base predebridement, postdebridement demonstrates clean granular base with no deep probing undermining. No acute signs of infection. Pre and postdebridement measurements documented nursing notes. Debridement Note Debridement Note Post-Debridement Measurements and Additional Note: Post-Debridement Measurements/Treatment - Nurse 1 - General Ulcer Assessment Start: 10/04/23 10:39 Freq: Status: Active Protocol: MIKE Activity Type Activity Date Activity User E-sign Co-sign Detail Recorded Client Recorded Date Recorded By Document 10/04/23 10:39 KW [id number] 10/04/23 10:48 KW 10/04/23 10:39 - Today's Visit Information Type of service Follow-up Visit (Physician/COMMUNICATION ARTS LECTURER ) Arrival Mode Ambulatory, Walker Patient Identification Verified (Name & Yes ) Height and Weight Body Mass Index (BMI) 102.8 BMI Classification Obese Vital Signs Temperature (97.8 F-99.1 F) 96.6 F L Temperature Source Temporal Pulse Rate (60-100) 94 Pulse Location Monitor Respiratory Rate (12-18) 18 Respiratory rate source Monitor Oxygen Delivery Method Room Air Blood Pressure (90/60-120/80) 130/88 H Blood Pressure Mean (mm Hg) 102 Source Monitor Position Sitting Blood Pressure Location Right Forearm History Since Last Visit- (Skip if this is Patient's initial visit) Have you changed medications since your No last visit? Any new allergies or adverse reactions No Had a fall/change in ADL's that may No increase risk of falls Signs or symptoms of abuse and/or No neglect since last visit Have you been in the hospital since your No last visit? Has dressing in place as prescribed Yes Has compression in place as prescribed Yes Has offloadiing in place as prescribed N/A Experienced any changes in pain level or No management Left Footwear Removable Cast Walker/Walking Boot Right Footwear Regular Shoe Pain Scale: 0-10 Numeric Is Patient Pain Free? Yes WC - Nurse 1 - General Ulcer Measurement Start: 10/04/23 10:39 Freq: Status: Active Protocol: Activity Type Activity Date Activity User E-sign Co-sign Detail Recorded Client Recorded Date Recorded By Document 10/04/23 10:39 DIEUDONNE [id number] 10/04/23 10:48 10/04/23 10:39 Wound Center Nurse 1 #3 RT MED ANKLE -Current Size (cm) - Length 1 -Current Size (cm) - Width 0.4 -Current Size (cm) - Depth 0.2 -Total Square Cm 0.4 -Exudate Amt Small -Exudate Type Serosanguineous -Wound Margin Distinct, Outline Attached -Granulation Amt Small (1-33%) -Granulation Quality Pale,Dana -Necrosis Amt Large (67-100%) -Necrotic Tissue Type Adherent Slough -Texture (Jagruti-wound Skin Appearance) Assessed -Moisture (Jagruti-wound Skin Appearance) Assessed -Color (Jagruti-wound Skin Appearance) Assessed -Temperature (Jagruti-wound Skin No Abnormality Appearance) (Pt Warm) -Tenderness on Palpation (Jagruti-wound No Skin Appearance) -Ulcer Cleansing Rinsed/ Irrigated with Saline Right Calf (cm) 33.2 Right Ankle (cm) 21 WC - Nurse 2 - General Ulcer CM Notes Start: 10/04/23 10:39 Freq: Status: Active Protocol: Activity Type Activity Date Activity User E-sign Co-sign Detail Recorded Client Recorded Date Recorded By Document 10/04/23 11:14 JF [id number] 10/04/23 11:16 BECCA 10/04/23 11:14 Wound Center Nurse 2 #3 RT MED ANKLE -Time 11:14 -Correct Patient Yes -Correct Side, Site, Position Yes -Correct Procedure Yes -Procedure Performed Yes -Type of Procedure Debridement -Clinical Debridement Subcutaneous -Tissue Removed Subcutaneous -Post Debridement (cm) - Length 0.9 -Post Debridement (cm) - Width 0.5 -Post Debridement (cm) - Depth 0.2 -Total Square (Post) (cm) 0.45 -Area of Debridement (cm) - Length 0.9 -Area of Debridement (cm) - Width 0.5 -Total Square (Area) (cm) 0.45 -Tunneling No -Undermining/Tunneling No -Circular Undermining No -Wound/Ulcer Outcome Not Healed -Ulcer Cleansing Rinsed/ Irrigated with Saline -Foul Odor after Cleansing No -Bioengineered Tissue No -Bleeding Controlled with Pressure -Treatment Response Procedure Tolerated Well -Offloading No -Debridement - Subq, 1st 20sq cm Yes Pain Scale: 0-10 Numeric Is Patient Pain Free? Yes Assessment/Plan Assessment/Plan (1) Non-pressure chronic ulcer of right ankle with fat layer exposed: CODE(S): L97.312 - Non-pressure chronic ulcer of right ankle with fat layer exposed PLAN: Exam performed Patient evaluated by vascular surgery: Recommending repeat ultrasound per Dr. Higuera to see if there are any perforators to address. At this time they are recommending aggressive compression elevation. Right lower extremity wound was excisionally debrided down to including level of subcutaneous tissue of all nonviable tissue using a throat 3 mm dermal curette. Patient tolerated procedure well. Topical anesthesia used. Pre and postdebridement measurements documented nursing notes. Hemostasis obtained with light compression. Will dress wound today with silver alginate, 3M compression wrap. Patient will follow-up in 1 week for continued care. (2) Venous insufficiency (chronic) (peripheral): CODE(S): I87.2 - Venous insufficiency (chronic) (peripheral)
[2023-10-11 10:29] VITALS: BP 144/72; PULSE 79; RESP 18; TEMP 35.3; BMI 102.8
--- NOTE | 2023-10-11 11:07 | PN.PCM_ITS ---
History of Present Illness Date of Service: 10/11/23 Chief Complaint: Follow-up surgical wound dehiscence History of Wound: Patient has had this wound for several weeks and has noticed worsening with increased serous drainage. Patient denies any fever chills nausea vomiting chest pain calf pain shortness of breath.68-year-old female presents today with a venous leg ulceration to her right leg. Patient has no other complaints. Objective Data Objective Data Vital Signs: Vital Signs Temp Pulse Resp BP O2 Del Method 95.6 F L 79 18 144/72 H Room Air 10/11/23 10:29 10/11/23 10:29 10/11/23 10:29 10/11/23 10:29 10/11/23 10:29 Oxygen Delivery Method Room Air Weight: 108.409 kg Body Mass Index (BMI) 102.8 Physical Exam Narrative Neurovascular status unchanged. Full-thickness wound to right medial ankle demonstrates fibrotic base predebridement, postdebridement demonstrates clean granular base with no deep probing undermining. No acute signs of infection. Pre and postdebridement measurements documented nursing notes. 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 ) ) Arrival Mode Ambulatory, Ambulatory, Walker Walker Patient Identification Verified (Name & Yes ) Safety Precautions Fall Prevention Height and Weight Body Mass Index (BMI) 102.8 102.8 BMI Classification Obese Obese Vital Signs Temperature (97.8 F-99.1 F) 96.6 F L 95.6 F L Temperature Source Temporal Temporal Pulse Rate (60-100) 94 79 Pulse Location Monitor Monitor Respiratory Rate (12-18) 18 18 Respiratory rate source Monitor Observation Oxygen Delivery Method Room Air Room Air Blood Pressure (90/60-120/80) 130/88 H 144/72 H Blood Pressure Mean (mm Hg) 102 96 Source Monitor Monitor Position Sitting Semi-Fowlers Blood Pressure Location Right Forearm Right Arm History Since Last Visit- (Skip if this is Patient's initial visit) Have you changed medications since your No No last visit? Any new allergies or adverse reactions No No Had a fall/change in ADL's that may No No increase risk of falls Signs or symptoms of abuse and/or No No neglect since last visit Have you been in the hospital since your No No last visit? Has dressing in place as prescribed Yes Yes Has compression in place as prescribed Yes N/A Has offloadiing in place as prescribed N/A N/A Experienced any changes in pain level or No Yes management Left Footwear Removable Cast Surgical Shoe Walker/Walking with pressure Boot relief insole Right Footwear Regular Shoe Regular Shoe Pain Scale: 0-10 Numeric Is Patient Pain Free? Yes Yes WC - Nurse 1 - General Ulcer Measurement Start: 10/04/23 10:39 Freq: Status: Active Protocol: Activity Type Activity Date Activity User E-sign Co-sign Detail Recorded Client Recorded Date Recorded By Document 10/04/23 10:39 KW [id number] 10/04/23 10:48 KW Document 10/11/23 10:31 DS [id number] 10/11/23 10:40 DS 10/04/23 10/11/23 10:39 10:31 Wound Center Nurse 1 #3 RT MED ANKLE -Current Size (cm) - Length 1 1.0 -Current Size (cm) - Width 0.4 0.5 -Current Size (cm) - Depth 0.2 0.3 -Total Square Cm 0.4 0.50 -Photo Taken No -Exudate Amt Small -Exudate Type Serosanguineous -Wound Margin Distinct, Outline Attached -Granulation Amt Small (1-33%) -Granulation Quality Pale,[place] -Slough/Fibrin Yes -Necrosis Amt Large (67-100%) Large (67-100%) -Necrotic Tissue Type Adherent Slough -Texture (Jagruti-wound Skin Appearance) Assessed Assessed -Moisture (Jagruti-wound Skin Appearance) Assessed Assessed -Color (Jagruti-wound Skin Appearance) Assessed Assessed -Temperature (Jagruti-wound Skin No Abnormality Appearance) (Pt Warm) -Tenderness on Palpation (Jagruti-wound No Skin Appearance) -Ulcer Cleansing Rinsed/ Soap and Water Irrigated with Saline -Anesthetic Used 5% Lidocaine Gel Right Calf (cm) 33.2 33.6 Right Ankle (cm) 21 21.0 WC - Nurse 2 - General Ulcer CM Notes Start: 10/04/23 10:39 Freq: Status: Active Protocol: Activity Type Activity Date Activity User E-sign Co-sign Detail Recorded Client Recorded Date Recorded By Document 10/04/23 11:14 JF [id number] 10/04/23 11:16 JF 10/04/23 11:14 Wound Center Nurse 2 #3 RT MED ANKLE -Time 11:14 -Correct Patient Yes -Correct Side, Site, Position Yes -Correct Procedure Yes -Procedure Performed Yes -Type of Procedure Debridement -Clinical Debridement Subcutaneous -Tissue Removed Subcutaneous -Post Debridement (cm) - Length 0.9 -Post Debridement (cm) - Width 0.5 -Post Debridement (cm) - Depth 0.2 -Total Square (Post) (cm) 0.45 -Area of Debridement (cm) - Length 0.9 -Area of Debridement (cm) - Width 0.5 -Total Square (Area) (cm) 0.45 -Tunneling No -Undermining/Tunneling No -Circular Undermining No -Wound/Ulcer Outcome Not Healed -Ulcer Cleansing Rinsed/ Irrigated with Saline -Foul Odor after Cleansing No -Bioengineered Tissue No -Bleeding Controlled with Pressure -Treatment Response Procedure Tolerated Well -Offloading No -Debridement - Subq, 1st 20sq cm Yes Pain Scale: 0-10 Numeric Is Patient Pain Free? Yes - Nurse 3 - General Ulcer D/C NN Start: 10/04/23 10:39 Freq: Status: Active Protocol: Activity Type Activity Date Activity User E-sign Co-sign Detail Recorded Client Recorded Date Recorded By Document 10/04/23 11:47 KW [id number] 10/04/23 11:47 KW 10/04/23 11:47 Wound Care Center Nurse 3 #3 RT MED ANKLE -Primary Dressing Applied Optilok 6.5x10, Promogran Karlee Matter -Primary Dressing Covered/Secured with Dry Gauze, Secured with Tape -Optilok 6.5x10 1 -Promogran Karlee Matter 1 Right -Multi-Layered Wrap Application Multi-Layer Comp - Right ($ ) Pain Scale: 0-10 Numeric Is Patient Pain Free? Yes Assessment/Plan Assessment/Plan (1) Non-pressure chronic ulcer of right ankle with fat layer exposed: CODE(S): L97.312 - Non-pressure chronic ulcer of right ankle with fat layer exposed PLAN: Exam performed Patient evaluated by vascular surgery: Recommending repeat ultrasound per Dr. Higuera to see if there are any perforators to address. At this time they are recommending aggressive compression elevation. Right lower extremity wound was excisionally debrided down to including level of subcutaneous tissue of all nonviable tissue using a throat 3 mm dermal curette. Patient tolerated procedure well. Topical anesthesia used. Pre and postdebridement measurements documented nursing notes. Hemostasis obtained with light compression. Will dress wound today with silver alginate, 3M compression wrap. Patient will follow-up in 1 week for continued care. (2) Venous insufficiency (chronic) (peripheral): CODE(S): I87.2 - Venous insufficiency (chronic) (peripheral)
== END 2023-10-15 23:59 | disposition home or self-care (01) ==
LOC: WC 10:30
PROVIDERS: PCP Family Medicine; Referring Provider Podiatrist; Visit Provider Podiatrist
DX: T81.31XA Disruption of external operation (surgical) wound, not elsewhere classified, initial encounter (principal); L97.312 Non-pressure chronic ulcer of right ankle with fat layer exposed; I87.2 Venous insufficiency (chronic) (peripheral)
CPT/HCPCS: 11042; 29581

== ENCOUNTER → 2023-10-12 | Outpatient (CLI) | payer MEDICARE, OTHER, SELFPAY | END | disposition home or self-care (01) | LOC: LABSPEC 14:47 | PROVIDERS: PCP Family Medicine; Referring Provider Nurse Practitioner Acute Care; Visit Provider Nurse Practitioner Acute Care | DX: J18.9 Pneumonia, unspecified organism (principal) | CPT/HCPCS: 87070; 87077; 87186; 87205 ==

== ENCOUNTER 2023-11-08 10:30 | Outpatient (RCR) | payer MEDICARE, OTHER, SELFPAY ==
[2023-10-16 00:42] VITALS: BP 142/63; PULSE 86; RESP 18; TEMP 35.8; BMI 102.8
[2023-10-18 10:14] VITALS: BP 132/68; PULSE 80; RESP 18; TEMP 36.2; BMI 102.8
[2023-10-25 10:10] VITALS: BP 157/65; PULSE 93; RESP 20; TEMP 36.2; BMI 102.8
[2023-11-08 10:21] VITALS: BP 144/78; PULSE 90; RESP 18; TEMP 36.6; BMI 102.8
== END 2023-11-14 23:59 | disposition home or self-care (01) ==
LOC: WC 10:30
PROVIDERS: PCP Family Medicine; Referring Provider Podiatrist; Visit Provider Podiatrist
DX: T81.31XA Disruption of external operation (surgical) wound, not elsewhere classified, initial encounter (principal); L97.312 Non-pressure chronic ulcer of right ankle with fat layer exposed; I87.2 Venous insufficiency (chronic) (peripheral)
CPT/HCPCS: 11042

== ENCOUNTER → 2023-11-23 | Outpatient (CLI) | payer MEDICARE, OTHER, SELFPAY ==
--- NOTE | 2023-11-23 09:33 | VDLE_ITS ---
Reason For Study: Right leg pain RIGHT GSV is normal. CFV is compressible, spontaneous, phasic, competent and demonstrates normal augmentation. FV is compressible, spontaneous, phasic, competent and demonstrates normal augmentation. POP V is compressible, spontaneous, phasic, competent and demonstrates normal augmentation. T/P Trunk is compressible. PTV is compressible. RT PerV is compressible. Sample Room Supervisor noted 17 cm above medial malleolus is INCOMPETENT. Sample Room Supervisor noted 9 cm above medial malleolus is competent. Procedure This is a venous duplex using B-mode, color flow and spectral Doppler. Exam performed in department. VL/Venous Duplex US, Unilateral Interpretation Summary Deep veins of the right lower extremity are patent and compressible segmentally . There is no evidence of right lower extremity deep vein thrombosis. The right great saphen[place] us vein appears patent and compressible segmentally. Proximal calf stock pitcher with reflux Ordering Physician: Joo Higuera Referring Physician: Terry Donnelly MD Performed By: Astrid Hawkins RVT
== END | disposition home or self-care (01) ==
LOC: CVS 09:33
PROVIDERS: PCP Family Medicine; Referring Provider Surgery Trauma Surgery; Visit Provider Surgery Trauma Surgery
DX: R60.0 Localized edema (principal)
CPT/HCPCS: 93971

== ENCOUNTER → 2023-12-03 | Outpatient (CLI) | payer MEDICARE, OTHER, SELFPAY | END | disposition home or self-care (01) | PROVIDERS: PCP Family Medicine; Referring Provider Internal Medicine Infectious Disease; Visit Provider Internal Medicine Infectious Disease | DX: R19.7 Diarrhea, unspecified (principal) | CPT/HCPCS: 87493 ==

== ENCOUNTER 2023-12-06 09:36 | Outpatient (RCR) | payer MEDICARE, OTHER, SELFPAY ==
[2023-11-15 00:19] VITALS: BP 142/63; PULSE 86; RESP 18; TEMP 35.8; BMI 102.8
[2023-12-06 09:56] VITALS: BP 164/85; PULSE 89; RESP 18; TEMP 36.2; BMI 102.8
--- NOTE | 2023-12-06 10:57 | PN.PCM_ITS ---
History of Present Illness Date of Service: 12/06/23 Chief Complaint: Follow-up surgical wound dehiscence History of Wound: Patient has had this wound for several weeks and has noticed worsening with increased serous drainage. Patient denies any fever chills nausea vomiting chest pain calf pain shortness of breath.68-year-old female presents today with a venous leg ulceration to her right leg. Patient has no other complaints. Objective Data Objective Data Vital Signs: Vital Signs Temp Pulse Resp BP 97.2 F L 89 18 164/85 H 12/06/23 09:56 12/06/23 09:56 12/06/23 09:56 12/06/23 09:56 Weight: 108.409 kg Body Mass Index (BMI) 102.8 Physical Exam Narrative Neurovascular status unchanged. Full-thickness wound to right medial ankle demonstrates fibrotic base predebridement, postdebridement demonstrates clean granular base with no deep probing undermining. No acute signs of infection. Pre and postdebridement measurements documented nursing notes. 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 ) Arrival Mode Ambulatory Transfer Assistance None Patient Identification Verified (Name & Yes ) Patient Requires Transmission-Based No Precautions Height and Weight Body Mass Index (BMI) 102.8 BMI Classification Obese Vital Signs Temperature (97.8 F-99.1 F) 97.2 F L Temperature Source Temporal Pulse Rate (60-100) 89 Pulse Location Monitor Respiratory Rate (12-18) 18 Respiratory rate source Observation Blood Pressure (90/60-120/80) 164/85 H Blood Pressure Mean (mm Hg) 111 Source Monitor Position Semi-Fowlers Blood Pressure Location Left Arm History Since Last Visit- (Skip if this is Patient's initial visit) Have you changed medications since your No last visit? Any new allergies or adverse reactions No Had a fall/change in ADL's that may No increase risk of falls Signs or symptoms of abuse and/or No neglect since last visit Have you been in the hospital since your No last visit? Has dressing in place as prescribed Yes Has compression in place as prescribed Yes Has offloadiing in place as prescribed No Experienced any changes in pain level or No management Pain Scale: 0-10 Numeric Is Patient Pain Free? Yes WC - Nurse 1 - General Ulcer Measurement Start: 12/06/23 09:56 Freq: Status: Active Protocol: Activity Type Activity Date Activity User E-sign Co-sign Detail Recorded Client Recorded Date Recorded By Document 12/06/23 09:56 RB [id number] 12/06/23 10:03 RB 12/06/23 09:56 Wound Center Nurse 1 #3 RT MED ANKLE -Combined with other wound No -Current Size (cm) - Length 0.1 -Current Size (cm) - Width 0.1 -Current Size (cm) - Depth 0.1 -Total Square Cm 0.01 -Photo Taken Yes -Tunneling No -Undermining/Tunneling No -Circular Undermining No -Exudate Amt Medium -Exudate Type Serosanguineous -Wound Margin Distinct, Outline Attached -Granulation Amt Medium (34-66%) -Granulation Quality [place] -Slough/Fibrin Yes -Necrosis Amt Small (1-33%) -Necrotic Tissue Type Adherent Slough -Structure Exposed N/A -Texture (Jagruti-wound Skin Appearance) Assessed, Scarring -Moisture (Jagruti-wound Skin Appearance) Assessed -Color (Jagruti-wound Skin Appearance) Assessed -Temperature (Jagruti-wound Skin No Abnormality Appearance) (Pt Warm) -Tenderness on Palpation (Jagruti-wound No Skin Appearance) -Ulcer Cleansing Wound Cleanser -Foul Odor after Cleansing No -Anesthetic Used 5% Lidocaine Gel Lower Limb Edema Present Yes Right Calf (cm) 32.5 Right Ankle (cm) 20.5 WC - Nurse 2 - General Ulcer CM Notes Start: 12/06/23 09:56 Freq: Status: Active Protocol: Activity Type Activity Date Activity User E-sign Co-sign Detail Recorded Client Recorded Date Recorded By Document 12/06/23 10:19 BECCA [id number] 12/06/23 10:20 BECCA 12/06/23 10:19 Wound Center Nurse 2 #3 RT MED ANKLE -Correct Patient No -Correct Side, Site, Position No -Correct Procedure No -Procedure Performed No -Wound/Ulcer Outcome Not Healed Pain Scale: 0-10 Numeric Is Patient Pain Free? Yes WC - Nurse 3 - General Ulcer D/C NN Start: 12/06/23 09:56 Freq: Status: Active Protocol: Activity Type Activity Date Activity User E-sign Co-sign Detail Recorded Client Recorded Date Recorded By Document 12/06/23 10:46 RB [id number] 12/06/23 10:47 RB 12/06/23 10:46 Wound Care Center Nurse 3 #3 RT MED ANKLE -Ulcer Cleansing Rinsed/ Irrigated with Saline -Other Dressing hydrogel -Primary Dressing Covered/Secured with Dry Gauze, Secured with Tape Right -Tubular Bandage Double Layer -Size of Tubigrip Used Size D -Size D ($) 2 Treatment Response Procedure Tolerated Well Pain Scale: 0-10 Numeric Is Patient Pain Free? Yes WC - Visit Discharge Discharge Condition Stable Ambulatory Status Ambulatory, Walker Transportation Private Auto Medication Reconcilliation completed & No provided to patient/care provider Clinical Summary of Care Provided Yes Assessment/Plan Assessment/Plan (1) Non-pressure chronic ulcer of right ankle with fat layer exposed: CODE(S): L97.312 - Non-pressure chronic ulcer of right ankle with fat layer exposed PLAN: Exam performed Patient evaluated by vascular surgery: Recommending repeat ultrasound per Dr. Higuera to see if there are any perforators to address. At this time they are recommending aggressive compression elevation. Right lower extremity wound was excisionally debrided down to including level of subcutaneous tissue of all nonviable tissue using a throat 3 mm dermal curette. Patient tolerated procedure well. Topical anesthesia used. Pre and postdebridement measurements documented nursing notes. Hemostasis obtained with light compression. Will dress wound today with hydrogel, dry sterile dressing, Tubigrip Consider delayed primary closure in operating room setting Patient will follow-up in 2 week for continued care. (2) Venous insufficiency (chronic) (peripheral): CODE(S): I87.2 - Venous insufficiency (chronic) (peripheral)
--- NOTE | 2023-12-09 10:25 | WC ---
PHOTO 12/06/23 RIGHT ANKLE
== END 2023-12-15 23:59 | disposition home or self-care (01) ==
LOC: WC 09:36
PROVIDERS: PCP Family Medicine; Referring Provider Podiatrist; Visit Provider Podiatrist
DX: T81.31XA Disruption of external operation (surgical) wound, not elsewhere classified, initial encounter (principal); L97.312 Non-pressure chronic ulcer of right ankle with fat layer exposed; I87.2 Venous insufficiency (chronic) (peripheral)
CPT/HCPCS: 99213; G0463

== ENCOUNTER 2024-01-03 10:00 | Outpatient (RCR) | payer MEDICARE, OTHER, SELFPAY ==
[2023-12-16 00:13] VITALS: BP 142/63; PULSE 86; RESP 18; TEMP 35.8; BMI 102.8
[2023-12-20 10:11] VITALS: BP 154/84; PULSE 94; RESP 18; TEMP 36.5; BMI 102.8
--- NOTE | 2023-12-20 10:44 | PCM.WC.PN ---
History of Present Illness Date of Service: 12/06/23 Chief Complaint: Follow-up surgical wound dehiscence History of Wound: Patient has had this wound for several weeks and has noticed worsening with increased serous drainage. Patient denies any fever chills nausea vomiting chest pain calf pain shortness of breath.68-year-old female presents today with a venous leg ulceration to her right leg. Patient has no other complaints. Objective Data Objective Data Vital Signs: Vital Signs Temp Pulse Resp BP 97.7 F L 94 18 154/84 H 12/20/23 10:11 12/20/23 10:11 12/20/23 10:11 12/20/23 10:11 Weight: 108.409 kg Body Mass Index (BMI) 102.8 Physical Exam Narrative Neurovascular status unchanged. Full-thickness wound to right medial ankle demonstrates fibrotic base predebridement, postdebridement demonstrates clean granular base with no deep probing undermining. No acute signs of infection. Pre and postdebridement measurements documented nursing notes. 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 ) Arrival Mode Ambulatory Transfer Assistance None Patient Identification Verified (Name & Yes ) Patient Requires Transmission-Based No Precautions Height and Weight Body Mass Index (BMI) 102.8 BMI Classification Obese Vital Signs Temperature (97.8 F-99.1 F) 97.7 F L Temperature Source Temporal Pulse Rate (60-100) 94 Pulse Location Monitor Respiratory Rate (12-18) 18 Respiratory rate source Observation Blood Pressure (90/60-120/80) 154/84 H Blood Pressure Mean (mm Hg) 107 Source Monitor Position Semi-Fowlers Blood Pressure Location Left Arm History Since Last Visit- (Skip if this is Patient's initial visit) Have you changed medications since your No last visit? Any new allergies or adverse reactions No Had a fall/change in ADL's that may No increase risk of falls Signs or symptoms of abuse and/or No neglect since last visit Have you been in the hospital since your No last visit? Has dressing in place as prescribed Yes Has compression in place as prescribed Yes Has offloadiing in place as prescribed No Experienced any changes in pain level or No management Pain Scale: 0-10 Numeric Is Patient Pain Free? Yes - Nurse 1 - General Ulcer Measurement Start: 12/20/23 10:10 Freq: Status: Active Protocol: Activity Type Activity Date Activity User E-sign Co-sign Detail Recorded Client Recorded Date Recorded By Document 12/20/23 10:11 RB [id number] 12/20/23 10:14 RB 12/20/23 10:11 Wound Center Nurse 1 #3 RT MED ANKLE -Combined with other wound No -Current Size (cm) - Length 0.6 -Current Size (cm) - Width 0.2 -Current Size (cm) - Depth 0.2 -Total Square Cm 0.12 -Tunneling No -Undermining/Tunneling No -Circular Undermining No -Exudate Amt Medium -Exudate Type Serosanguineous -Wound Margin Thickened & Rolled Under -Granulation Amt Medium (34-66%) -Granulation Quality [place] -Slough/Fibrin Yes -Necrosis Amt Medium (34-66%) -Necrotic Tissue Type Adherent Slough -Structure Exposed N/A -Texture (Jagruti-wound Skin Appearance) Scarring -Moisture (Jagruti-wound Skin Appearance) Assessed -Color (Jagruti-wound Skin Appearance) Assessed -Temperature (Jagruti-wound Skin No Abnormality Appearance) (Pt Warm) -Tenderness on Palpation (Jagruti-wound No Skin Appearance) -Ulcer Cleansing Wound Cleanser -Foul Odor after Cleansing No -Anesthetic Used 5% Lidocaine Gel Lower Limb Edema Present Yes Right Calf (cm) 32.5 Right Ankle (cm) 20.5 - Nurse 2 - General Ulcer CM Notes Start: 12/20/23 10:10 Freq: Status: Active Protocol: Activity Type Activity Date Activity User E-sign Co-sign Detail Recorded Client Recorded Date Recorded By Document 12/20/23 10:41 BECCA [id number] 12/20/23 10:43 BECCA 12/20/23 10:41 Wound Center Nurse 2 #3 RT MED ANKLE -Time 10:41 -Correct Patient Yes -Correct Side, Site, Position Yes -Correct Procedure Yes -Procedure Performed Yes -Type of Procedure Debridement -Clinical Debridement Subcutaneous -Tissue Removed Subcutaneous -Post Debridement (cm) - Length 0.7 -Post Debridement (cm) - Width 0.3 -Post Debridement (cm) - Depth 0.2 -Total Square (Post) (cm) 0.21 -Area of Debridement (cm) - Length 0.7 -Area of Debridement (cm) - Width 0.3 -Total Square (Area) (cm) 0.21 -Tunneling No -Undermining/Tunneling No -Circular Undermining No -Wound/Ulcer Outcome Not Healed -Ulcer Cleansing Rinsed/ Irrigated with Saline -Foul Odor after Cleansing No -Bioengineered Tissue No -Bleeding Controlled with Pressure -Treatment Response Procedure Tolerated Well -Offloading No -Debridement - Subq, 1st 20sq cm Yes Pain Scale: 0-10 Numeric Is Patient Pain Free? Yes Assessment/Plan Assessment/Plan (1) Non-pressure chronic ulcer of right ankle with fat layer exposed: CODE(S): L97.312 - Non-pressure chronic ulcer of right ankle with fat layer exposed PLAN: Exam performed Patient pending venous ablation surgery Right lower extremity wound was excisionally debrided down to including level of subcutaneous tissue of all nonviable tissue using a throat 3 mm dermal curette. Patient tolerated procedure well. Topical anesthesia used. Pre and postdebridement measurements documented nursing notes. Hemostasis obtained with light compression. Wound does appear improved today Will dress wound today with hydrogel, dry sterile dressing, Tubigrip Consider delayed primary closure in operating room setting if there is no resolution Patient will follow-up in 2 week for continued care. (2) Venous insufficiency (chronic) (peripheral): CODE(S): I87.2 - Venous insufficiency (chronic) (peripheral)
[2024-01-03 10:09] VITALS: BP 171/84; PULSE 96; RESP 18; TEMP 36.1; BMI 102.8
--- NOTE | 2024-01-03 10:56 | PCM.WC.PN ---
History of Present Illness Date of Service: 01/03/24 Chief Complaint: Follow-up surgical wound dehiscence History of Wound: Patient has had this wound for several weeks and has noticed worsening with increased serous drainage. Patient denies any fever chills nausea vomiting chest pain calf pain shortness of breath.68-year-old female presents today with a venous leg ulceration to her right leg. Patient has no other complaints. Objective Data Objective Data Vital Signs: Vital Signs Temp Pulse Resp BP 97 F L 96 18 171/84 H 01/03/24 10:09 01/03/24 10:09 01/03/24 10:09 01/03/24 10:09 Weight: 108.409 kg Body Mass Index (BMI) 102.8 Physical Exam Narrative Neurovascular status unchanged. Full-thickness wound to right medial ankle demonstrates fibrotic base predebridement, postdebridement demonstrates clean granular base with no deep probing undermining. No acute signs of infection. Pre and postdebridement measurements documented nursing notes. Const alert and oriented x3 Debridement Note Debridement Note Post-Debridement Measurements and Additional Note: Post-Debridement Measurements/Treatment - Nurse 1 - General Ulcer Assessment Start: 12/20/23 10:10 Freq: Status: Active Protocol: WC.LOWREGINALDOT Activity Type Activity Date Activity User E-sign Co-sign Detail Recorded Client Recorded Date Recorded By Document 12/20/23 10:11 RB [id number] 12/20/23 10:14 RB Document 01/03/24 10:09 RB [id number] 01/03/24 10:15 RB 12/20/23 01/03/24 10:11 10:09 - Today's Visit Information Type of service Follow-up Visit Follow-up Visit ([facility] (Physician[facility] ) ) Arrival Mode Ambulatory Ambulatory Transfer Assistance None None Patient Identification Verified (Name & Yes Yes ) Patient Requires Transmission-Based No No Precautions Height and Weight Body Mass Index (BMI) 102.8 102.8 BMI Classification Obese Obese Vital Signs Temperature (97.8 F-99.1 F) 97.7 F L 97 F L Temperature Source Temporal Temporal Pulse Rate (60-100) 94 96 Pulse Location Monitor Monitor Respiratory Rate (12-18) 18 18 Respiratory rate source Observation Observation Blood Pressure (90/60-120/80) 154/84 H 171/84 H Blood Pressure Mean (mm Hg) 107 113 Source Monitor Monitor Position Semi-Fowlers Semi-Fowlers Blood Pressure Location Left Arm Left Arm History Since Last Visit- (Skip if this is Patient's initial visit) Have you changed medications since your No No last visit? Any new allergies or adverse reactions No No Had a fall/change in ADL's that may No No increase risk of falls Signs or symptoms of abuse and/or No No neglect since last visit Have you been in the hospital since your No No last visit? Has dressing in place as prescribed Yes Yes Has compression in place as prescribed Yes No Has offloadiing in place as prescribed No No Experienced any changes in pain level or No No management Pain Scale: 0-10 Numeric Is Patient Pain Free? Yes Yes WC - Nurse 1 - General Ulcer Measurement Start: 12/20/23 10:10 Freq: Status: Active Protocol: Activity Type Activity Date Activity User E-sign Co-sign Detail Recorded Client Recorded Date Recorded By Document 12/20/23 10:11 RB [id number] 12/20/23 10:14 RB Document 01/03/24 10:09 RB [id number] 01/03/24 10:15 RB 12/20/23 01/03/24 10:11 10:09 Wound Center Nurse 1 #3 RT MED ANKLE -Combined with other wound No No -Current Size (cm) - Length 0.6 0.1 -Current Size (cm) - Width 0.2 0.1 -Current Size (cm) - Depth 0.2 0.1 -Total Square Cm 0.12 0.01 -Photo Taken Yes -Tunneling No No -Undermining/Tunneling No No -Circular Undermining No No -Exudate Amt Medium Small -Exudate Type Serosanguineous Serosanguineous -Wound Margin Thickened & Distinct, Rolled Under Outline Attached -Granulation Amt Medium (34-66%) Medium (34-66%) -Granulation Quality [place] -Slough/Fibrin Yes Yes -Necrosis Amt Medium (34-66%) Small (1-33%) -Necrotic Tissue Type Adherent Slough Adherent Slough -Structure Exposed N/A N/A -Texture (Jagruti-wound Skin Appearance) Scarring Assessed, Scarring -Moisture (Jagruti-wound Skin Appearance) Assessed Assessed -Color (Jagruti-wound Skin Appearance) Assessed Assessed -Temperature (Jagruti-wound Skin No Abnormality No Abnormality Appearance) (Pt Warm) (Pt Warm) -Tenderness on Palpation (Jagruti-wound No No Skin Appearance) -Ulcer Cleansing Wound Cleanser Wound Cleanser -Foul Odor after Cleansing No No -Anesthetic Used 5% Lidocaine 5% Lidocaine Gel Gel Lower Limb Edema Present Yes Yes Right Calf (cm) 32.5 32.2 Right Ankle (cm) 20.5 20.4 WC - Nurse 2 - General Ulcer CM Notes Start: 12/20/23 10:10 Freq: Status: Active Protocol: Activity Type Activity Date Activity User E-sign Co-sign Detail Recorded Client Recorded Date Recorded By Document 12/20/23 10:41 [id number] 12/20/23 10:43 Document 01/03/24 10:37 [id number] 01/03/24 10:39 12/20/23 01/03/24 10:41 10:37 Wound Center Nurse 2 #3 RT MED ANKLE -Time 10:41 10:38 -Correct Patient Yes Yes -Correct Side, Site, Position Yes Yes -Correct Procedure Yes Yes -Procedure Performed Yes Yes -Type of Procedure Debridement Debridement -Clinical Debridement Subcutaneous Subcutaneous -Tissue Removed Subcutaneous Subcutaneous -Post Debridement (cm) - Length 0.7 0.4 -Post Debridement (cm) - Width 0.3 0.3 -Post Debridement (cm) - Depth 0.2 0.1 -Total Square (Post) (cm) 0.21 0.12 -Area of Debridement (cm) - Length 0.7 0.4 -Area of Debridement (cm) - Width 0.3 0.3 -Total Square (Area) (cm) 0.21 0.12 -Tunneling No No -Undermining/Tunneling No No -Circular Undermining No No -Wound/Ulcer Outcome Not Healed Not Healed -Ulcer Cleansing Rinsed/ Rinsed/ Irrigated with Irrigated with Saline Saline -Foul Odor after Cleansing No No -Bioengineered Tissue No No -Bleeding Controlled with Pressure Pressure -Treatment Response Procedure Procedure Tolerated Well Tolerated Well -Offloading No No -Debridement - Subq, 1st 20sq cm Yes Yes Pain Scale: 0-10 Numeric Is Patient Pain Free? Yes Yes [email or web address] - Nurse 3 - General Ulcer D/C NN Start: 12/20/23 10:10 Freq: Status: Active Protocol: Activity Type Activity Date Activity User E-sign Co-sign Detail Recorded Client Recorded Date Recorded By Document 12/20/23 10:50 JF [id number] 12/20/23 10:51 JF Document 01/03/24 10:49 DS [id number] 01/03/24 10:51 DS 12/20/23 01/03/24 10:50 10:49 Wound Care Center Nurse 3 #3 RT MED ANKLE -Ulcer Cleansing Rinsed/ Rinsed/ Irrigated with Irrigated with Saline Saline -Foul Odor after Cleansing No -Primary Dressing Applied C Hydrogel ($) -Other Dressing hydrogel -Primary Dressing Covered/Secured with Dry Gauze, Dry Gauze, Secured with Secured with Tape Tape Right -Tubular Bandage Double Layer Double Layer -Size of Tubigrip Used Size D Size D -Size D ($) 2 2 Pain Scale: 0-10 Numeric Is Patient Pain Free? Yes Yes WC - Visit Discharge Discharge Condition Stable Stable Ambulatory Status Ambulatory, Walker Walker Transportation Private Auto Medication Reconcilliation completed & Yes Yes provided to patient/care provider Clinical Summary of Care Provided Yes Yes Assessment/Plan Assessment/Plan (1) Non-pressure chronic ulcer of right ankle with fat layer exposed: CODE(S): L97.312 - Non-pressure chronic ulcer of right ankle with fat layer exposed PLAN: Exam performed Patient pending venous ablation surgery Right lower extremity wound was excisionally debrided down to including level of subcutaneous tissue of all nonviable tissue using a throat 3 mm dermal curette. Patient tolerated procedure well. Topical anesthesia used. Pre and postdebridement measurements documented nursing notes. Hemostasis obtained with light compression. Wound does appear improved today Will dress wound today with hydrogel, dry sterile dressing, Tubigrip Consider delayed primary closure in operating room setting if there is no resolution Patient will follow-up in 2 week for continued care. (2) Venous insufficiency (chronic) (peripheral): CODE(S): I87.2 - Venous insufficiency (chronic) (peripheral)
--- NOTE | 2024-01-03 14:22 | WC ---
PHOTO 01/03/24 RIGHT MEDIAL ANKLE
--- NOTE | 2024-01-05 08:39 | WC ---
PHOTO 01/03/24 RIGHT MEDIAL ANKLE
== END 2024-01-14 23:59 | disposition home or self-care (01) ==
LOC: WC 10:00
PROVIDERS: PCP Family Medicine; Referring Provider Podiatrist; Visit Provider Podiatrist
DX: L97.312 Non-pressure chronic ulcer of right ankle with fat layer exposed (principal); I87.2 Venous insufficiency (chronic) (peripheral)
CPT/HCPCS: 11042

== ENCOUNTER → 2024-01-05 | Outpatient (CLI) | payer MEDICARE, OTHER, SELFPAY | END | disposition home or self-care (01) | LOC: LAB 14:35 | PROVIDERS: PCP Family Medicine; Referring Provider Internal Medicine Infectious Disease; Visit Provider Internal Medicine Infectious Disease | DX: J18.9 Pneumonia, unspecified organism (principal) | CPT/HCPCS: 87070; 87077; 87186; 87205 ==

== ENCOUNTER → 2024-01-07 | Outpatient (CLI) | payer MEDICARE, OTHER, SELFPAY ==
[2024-01-07 13:57] LABS: Mucous, Urine 0 SEEN /hpf (<or=2+); Red Blood Cells-Urine 0 SEEN /hpf (0-5)
[2024-01-07 14:04] LABS: Color, Urine Yellow (Yellow); Glucose, Dipstick Normal (Normal); Ketone-Dipstick Negative (Negative); Leukocyte Esterase-Dipstick 500 /ul (Negative); Nitrite-Dipstick Negative (Negative); Occult Blood-Urine 50 /ul (Negative); Protein-Dipstick 30 mg/dl (Negative); Urine Bilirubin Dipstick Negative (Negative); Urine Clarity Cloudy (Clear); Urine Urobilinogen Normal (Normal)
[2024-01-07 14:27] LABS: Bacteria 2+ /hpf (None Seen); Squamous Epithelial Cells - UA 0-5 SEEN /hpf (5-10); White Blood Cells >100 SEEN /hpf (0-5)
== END | disposition home or self-care (01) ==
LOC: LABSPEC 13:55
PROVIDERS: PCP Family Medicine; Visit Provider Physician Assistant
DX: N39.0 Urinary tract infection, site not specified (principal)
CPT/HCPCS: 81001; 87077; 87086; 87088; 87186

== ENCOUNTER 2024-01-09 07:49 | Day surgery (SDC) | payer MEDICARE, OTHER, SELFPAY ==
[2023-12-28 09:23] VITALS: BMI 40.8
--- NOTE | 2024-01-09 09:47 | PCM.HP.STD ---
HPI - General HPI Narrative LAURA SERRANO, is a 68 F who presents with right lower extremity venous ulcerations refractory to local care and compression. Prior GSV ablation. Duplex revealed two calf perforators that are incompetent and feeding superficial system/varicosities adjacent to wounds. [facility] Medical History Necrosis Venous ulcer Essential hypertension Hyperlipidemia Asthma Iron deficiency anemia Vitamin D deficiency Chronic diastolic congestive heart failure Hypothyroidism Allergic rhinitis Gastroesophageal reflux disease History of COPD History of diabetes mellitus Atrial fibrillation Hypertension Easy bruising History of stress test History of echocardiogram Cardiology follow-up encounter Wears glasses Anxiety Diabetes Walker as ambulation aid History of renal disease Anemia Migraine headache Back pain Injury of back Shortness of breath on exertion History of edema Pain of left hip Bronchiectasis with (acute) exacerbation High cholesterol Hypothyroidism Kidney disease Former smoker Congestive heart failure (CHF) Hypertension Hypoxemia Bronchiectasis Pneumonia due to Pseudomonas Cough Palpitations Paroxysmal atrial fibrillation Chronic diastolic heart failure GAGAN (obstructive sleep apnea) Septic shock 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 COPD with acute exacerbation Lung nodule Thrush, oral History of DVT (deep vein thrombosis) Abnormal chest CT Shortness of breath Cavitary lesion of lung Aspiration into airway Obesity Chronic respiratory failure Precordial chest pain Paroxysmal atrial tachycardia Right foot pain MRSA pneumonia Venous thromboembolism (VTE) Hyperlipidemia Diabetes mellitus HCAP (healthcare-associated pneumonia) Severe sepsis Coarse tremors Weakness Acute respiratory failure DVT (deep venous thrombosis) Pulmonary embolism Allergic rhinitis Insomnia Steroid myopathy Atrial fibrillation with rapid ventricular response Pneumonia ALEXYS (acute kidney injury) PVD (peripheral vascular disease) Atrial tachycardia Morbid obesity Acute bronchiolitis Tachycardia Hx pulmonary embolism Cellulitis of right lower extremity Umbilical hernia Gastroesophageal reflux disease COLD (chronic obstructive lung disease) Benign essential HTN Home Medications ?Medication ?Instructions ?Recorded ?Last Taken ?Type levothyroxine 25 mcg tablet 25 mcg PO DAILY@0600 thyroid 01/04/20 01/09/24 History famotidine 40 mg tablet 40 mg PO QHS reflux 04/02/20 07/03/21 23:04 History cholecalciferol (vitamin D3) 50 50 mcg PO DAILY SUPPLEMENT 09/19/20 07/04/21 05:54 History mcg (2,000 unit) capsule furosemide 40 mg tablet (Lasix) 40 mg PO BID water pill 09/19/20 07/04/21 05:52 History esomeprazole magnesium 40 mg 40 mg PO DAILY reflux 10/13/20 01/09/24 History capsule,delayed release (Nexium) potassium chloride 20 mEq 20 meq PO BID supplement 10/13/20 01/09/24 History tablet,extended release(part/cryst) ferrous sulfate 325 mg (65 mg 325 mg PO DAILY anemia 06/26/21 01/09/24 History iron) tablet acetaminophen 500 mg tablet 1,000 mg (2 x 500 mg) PO Q8 PRN 07/14/21 01/09/24 Rx pain of temp > 101 #0 tabs albuterol sulfate 2.5 mg/3 mL 2.5 mg (3 mL) inhalation Q4H PRN 05/17/22 Unknown Rx (0.083 %) solution for nebulization breathing #180 vials ipratropium bromide 42 mcg (0.06 2 spray intranasal TID PRN DRY NOSE 03/10/23 Unknown History %) nasal spray latanoprost 0.005 % eye drops 1 drp ophthalmic (eye) QPM 03/10/23 Unknown History albuterol sulfate 90 mcg/actuation 2 puff inhalation Q4H PRN 09/14/23 Unknown Rx aerosol inhaler (Ventolin HFA) shortness of breath or wheezing #3 ea semaglutide (weight loss) 0.5 1 mg subcut QWEEK 09/28/23 Unknown History mg/0.5 mL subcutaneous pen injector apixaban 5 mg tablet (Eliquis) 5 mg PO BID anticoagulant #180 tabs 11/29/23 01/08/24 Rx atorvastatin 10 mg tablet 10 mg PO QHS cholesterol #90 tabs 11/29/23 Unknown Rx diltiazem HCl 180 mg 180 mg PO DAILY heart #90 caps 11/29/23 01/09/24 Rx capsule,extended release 24 hr (Cardizem CD) montelukast 10 mg tablet 10 mg PO QHS asthma #90 tabs 11/29/23 Unknown Rx (Singulair) fluticasone propionate 230 2 puff inhalation BID lungs #3 ea 12/07/23 Unknown Rx mcg-salmeterol 21 mcg/actuation HFA inhaler (Advair HFA) gabapentin 300 mg capsule 300 mg PO TID 01/03/24 01/09/24 History cefdinir 300 mg capsule 300 mg PO BID 5 days #10 caps 01/07/24 Unknown Rx doxycycline hyclate 100 mg capsule 100 mg PO BID 01/07/24 Unknown History Allergy/AdvReac Type Severity Reaction Status Date / Time adhesive Allergy SKIN Verified 01/07/24 12:40 TEARS. PAPER TAPE OK azithromycin (From Zithromax) Allergy Rash Verified 01/07/24 12:40 cefuroxime sodium (From Allergy Rash Verified 01/07/24 12:40 Zinacef) clindamycin Allergy Hives Verified 01/07/24 12:40 Sulfa (Sulfonamide Allergy Rash Verified 01/07/24 12:40 Antibiotics) atenolol AdvReac Severe Peripheal Verified 01/07/24 12:40 edema & cough metoprolol (From Toprol XL) AdvReac Severe Peripheral Verified 01/07/24 12:40 edema & cough duloxetine (From Cymbalta) AdvReac Intermediate made me Verified 01/07/24 12:40 feel really sick nitrofurantoin AdvReac Mild unknown Verified 01/07/24 12:40 macrocrystalline (From Macrodantin) Corticosteroids AdvReac Other Verified 01/07/24 12:40 (Glucocorticoids) oxycodone HCl (From Percocet) AdvReac Vomiting Verified 01/07/24 12:40 Family History Mother Hypertension Diabetes Heart disease Pulmonary embolism Father Perforated ulcer Respiratory failure Sister Asthma Hypertension Surgical History History of total left hip replacement Status post total hip replacement, left Status post hip replacement S/P hip replacement Hx of vein stripping S/P hysterectomy History of appendectomy History of cardioversion (~12/2016) History of left heart catheterization H/O hernia repair H/O foot surgery H/O shoulder surgery H/O section H/O: hysterectomy Social History household members: none Smoking Status: Former smoker quit date: 02/14/75 pack-years: 3 second hand exposure: No alcohol intake: never substance use type: does not use caffeine: No what type of physical activity do you participate in: none ROS Constitutional Constitutional: Denies chills, fever(s), frequent falls, lethargy or weakness Eyes Eyes: Denies blind spots, change in vision or loss of vision ENT HEENT: Denies bleeding gums, hoarseness or sore throat Cardiovascular Cardiovascular: Denies abdominal pain, bluish discoloration of hand/feet, chest pain with activity, claudication, cold extremities, cyanosis, dyspnea on exertion, erythema on extremities, irregular heart rhythm, leg edema, leg ulcers, numbness in extremities or weakness in extremities Respiratory/Chest Respiratory/Chest: Denies excessive phlegm production, shortness of breath at rest, shortness of breath with exertion or wheezing Gastrointestinal Gastrointestinal: Denies anorexia, change in stool character, constipation, diarrhea, melena or rectal bleeding Genitourinary Genitourinary: Denies dysuria or hematuria Musculoskeletal Musculoskeletal: Denies abnormal gait Integumentary Integumentary: Reports other Details: ; Denies erythema, non-healing lesions or wounds Neurologic Neurologic: Denies abnormal speech, focal weakness, headache(s), loss of vision, numbness, paresthesias or sensory deficit Hematologic/Lymphatic Hematologic/Lymphatic: Denies easy bleeding, easy bruising or lymphadenopathy Vital Signs Vital Signs Vital Signs: Weight Weight: 216 lb Body Mass Index (BMI) 40.8 Physical Exam Const alert, oriented x3, no apparent distress and healthy appearing General Appearance: cooperative; Negative for combative or lethargic Orientation / Consciousness: awake Exam Limitations: no limitations HEENT Head and Scalp: normocephalic and atraumatic Eyes EOMs intact bilaterally General Eye: normal appearance of both eyes Neck full ROM and no lymphadenopathy General: trachea midline Resp normal respiratory effort and no use of accessory muscles Effort and Inspection: Negative for labored, stridor or audible wheezes Cardio regular rate and regular rhythm Back/Spine Cervical Spine: cervical ROM normal Extremity full ROM, normal capillary refill and no clubbing, cyanosis or edema Skin no rashes or lesions noted and no wounds Neuro oriented x3, CN's II-XII intact bilaterally, no focal motor deficits and no sensory deficits noted Psych thought process normal, cooperative, affect normal, speech normal and activity/motor behavior normal Assessment & Plan Assessment/Plan (1) Venous insufficiency (chronic) (peripheral): PLAN: -ulceration of medial calf -two incompetent perforators -RF ablation
--- NOTE | 2024-01-09 10:32 | OP.PCM_ITS ---
Operative Report (Standard) Operative Information Surgery/Procedure Performed: right lower extremity mining technician vein ablation Surgeon: Joo Higuera Date of Procedure: 01/09/24 Procedure Start Time: 09:50 Procedure Stop Time: 10:30 Pre-Operative Diagnosis: venous insufficiency with ulceration medial ankle Post-Operative Diagnosis: same Select all DRAINS/GRAFTS/IMPLANTS that apply: None Type of Anesthesia: Local and Sedation,Conscious Estimated Blood Loss: 2 Specimen collected: No Cost And Sales Record Supervisor center human resources manager: No Complications Complications: No
--- NOTE | 2024-01-09 10:32 | PCM.OPRPT ---
Operative Report (Standard) Operative Information Surgery/Procedure Performed: right lower extremity string top sealer vein ablation Surgeon: Joo Higuera Date of Procedure: 01/09/24 Procedure Start Time: 09:50 Procedure Stop Time: 10:30 Pre-Operative Diagnosis: venous insufficiency with ulceration medial ankle Post-Operative Diagnosis: same Select all DRAINS/GRAFTS/IMPLANTS that apply: None Type of Anesthesia: Local and Sedation,Conscious Estimated Blood Loss: 2 Specimen collected: No Description of surgery: HPI: Patient is a 68-year-old female with recurrent persistent right lower extremity venous ulcerations status post prior saphenous vein intervention. She is found to have multiple perforators with reflux in the medial aspect of the lower leg that appear to be directly feeding the area of the wound. She presents now for string top sealer ablation. Description of procedure: Upon obtaining form consent and verification correct patient procedure site patient was taken to the Backing In Machine Tender where she was positioned prepped and draped in usual sterile fashion. Timeouts performed conscious sedation administered Versed and fentanyl. Ultrasound was used to evaluate the venous anatomy the right lower extremity and the 2 large perforators identified 1 just superior to the malleolus and 1 in the mid calf. There was a third smaller string top sealer in the superior aspect of the calf that appeared to communicate with the varicosities on the lateral aspect of the calf and did not appear to be in direct communication with the area of the wound. Skin overlying the distal and mid calf string top sealer was anesthetized with 1% lidocaine and then small skin incision made at the intended puncture site of the distal string top sealer. The [employer] string top sealer ablation stylette advanced through the skin incision and under ultrasound guidance positioned within the string top sealer at the point where it traversed the fascia. There was appropriate level resistance measured on the ablation system so the probe was activated for a total of 4 minutes and then withdrawn. The vessel was interrogated with Doppler and appeared to be totally occluded with no evidence of deep vein thrombus at the point of communication with the posterior tibial vein. Next skin incision was made at the intended puncture site of the mid calf string top sealer ablation stylette advanced through the incision in position within the string top sealer at the point of crossing the fascia. Again this was activated for a total of 4 minutes and then withdrawn. Again the vein upon repeat evaluation ultrasound revealed an occluded string top sealer with no communication of any to the deep system. Manual pressure was then held and dry sterile dressings placed which the patient was awake from sedation and taken to the recovery area prior to discharge to home. Surgical Findings: See above Parts Counterman tube teller: No Complications Complications: No
== END 2024-01-09 11:45 | disposition home or self-care (01) ==
PROVIDERS: PCP Family Medicine; Referring Provider Surgery Trauma Surgery; Visit Provider Surgery Trauma Surgery
DX: I83.013 Varicose veins of right lower extremity with ulcer of ankle (principal); L97.312 Non-pressure chronic ulcer of right ankle with fat layer exposed; I11.0 Hypertensive heart disease with heart failure; I50.32 Chronic diastolic (congestive) heart failure; J44.9 Chronic obstructive pulmonary disease, unspecified; E11.59 Type 2 diabetes mellitus with other circulatory complications; I87.2 Venous insufficiency (chronic) (peripheral); Z79.51 Long term (current) use of inhaled steroids; Z79.01 Long term (current) use of anticoagulants; E78.00 Pure hypercholesterolemia, unspecified; K21.9 Gastro-esophageal reflux disease without esophagitis; D50.9 Iron deficiency anemia, unspecified; Z87.891 Personal history of nicotine dependence; G47.33 Obstructive sleep apnea (adult) (pediatric); Z86.718 Personal history of other venous thrombosis and embolism; Z90.710 Acquired absence of both cervix and uterus; Z86.711 Personal history of pulmonary embolism; I73.9 Peripheral vascular disease, unspecified; E03.9 Hypothyroidism, unspecified; Z86.14 Personal history of Methicillin resistant Staphylococcus aureus infection
CPT/HCPCS: J7030; 36475; 99152; 99153; C1888; C1894

== ENCOUNTER 2024-01-13 08:33 | Emergency (ER) | payer MEDICARE, OTHER, SELFPAY ==
[2024-01-13 08:34] VITALS: BP 138/83; PULSE 89; RESP 14; TEMP 36.3; O2SAT 98
--- NOTE | 2024-01-13 08:57 | ED.VIS.LOWEX ---
HPI History of Present Illness Chief Complaint: Lower Extremity Injury Informant: patient Narrative Narrative: 69-year-old female presenting to the emergency room with rash of the lower extremity. Patient states that last Tuesday she underwent a venous ablation with Dr. Higuera from vascular surgery. She states that she had the leg prepped with chlorhexidine when she returned home she had some small red bumps on the right leg. She states that these turned purple and have progressed and are very itchy. She notes a slight amount on the left inner thigh. She believes that is because that thigh was touching the right thigh. She denies any cough fever. No sore throat. No dyspnea. She states that she is on Eliquis for atrial fibrillation and prior pulmonary embolism. She has never had this reaction before. [facility] Medical History Necrosis Venous ulcer Essential hypertension Hyperlipidemia Asthma Iron deficiency anemia Vitamin D deficiency Chronic diastolic congestive heart failure Hypothyroidism Allergic rhinitis Gastroesophageal reflux disease History of COPD History of diabetes mellitus Atrial fibrillation Hypertension Easy bruising History of stress test History of echocardiogram Cardiology follow-up encounter Wears glasses Anxiety Diabetes Walker as ambulation aid History of renal disease Anemia Migraine headache Back pain Injury of back Shortness of breath on exertion History of edema Pain of left hip Bronchiectasis with (acute) exacerbation High cholesterol Hypothyroidism Kidney disease Former smoker Congestive heart failure (CHF) Hypertension Hypoxemia Bronchiectasis Pneumonia due to Pseudomonas Cough Palpitations Paroxysmal atrial fibrillation Chronic diastolic heart failure GAGAN (obstructive sleep apnea) Septic shock 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 COPD with acute exacerbation Lung nodule Thrush, oral History of DVT (deep vein thrombosis) Abnormal chest CT Shortness of breath Cavitary lesion of lung Aspiration into airway Obesity Chronic respiratory failure Precordial chest pain Paroxysmal atrial tachycardia Right foot pain MRSA pneumonia Venous thromboembolism (VTE) Hyperlipidemia Diabetes mellitus HCAP (healthcare-associated pneumonia) Severe sepsis Coarse tremors Weakness Acute respiratory failure DVT (deep venous thrombosis) Pulmonary embolism Allergic rhinitis Insomnia Steroid myopathy Atrial fibrillation with rapid ventricular response Pneumonia ALEXYS (acute kidney injury) PVD (peripheral vascular disease) Atrial tachycardia Morbid obesity Acute bronchiolitis Tachycardia Hx pulmonary embolism Cellulitis of right lower extremity Umbilical hernia Gastroesophageal reflux disease COLD (chronic obstructive lung disease) Benign essential HTN Home Medications ?Medication ?Instructions ?Recorded ?Last Taken ?Type levothyroxine 25 mcg tablet 25 mcg PO DAILY@0600 thyroid 01/04/20 01/09/24 History famotidine 40 mg tablet 40 mg PO QHS reflux 04/02/20 07/03/21 23:04 History cholecalciferol (vitamin D3) 50 50 mcg PO DAILY SUPPLEMENT 09/19/20 07/04/21 05:54 History mcg (2,000 unit) capsule furosemide 40 mg tablet (Lasix) 40 mg PO BID water pill 09/19/20 07/04/21 05:52 History esomeprazole magnesium 40 mg 40 mg PO DAILY reflux 10/13/20 01/09/24 History capsule,delayed release (Nexium) potassium chloride 20 mEq 20 meq PO BID supplement 10/13/20 01/09/24 History tablet,extended release(part/cryst) ferrous sulfate 325 mg (65 mg 325 mg PO DAILY anemia 06/26/21 01/09/24 History iron) tablet acetaminophen 500 mg tablet 1,000 mg (2 x 500 mg) PO Q8 PRN 07/14/21 01/09/24 Rx pain of temp > 101 #0 tabs albuterol sulfate 2.5 mg/3 mL 2.5 mg (3 mL) inhalation Q4H PRN 05/17/22 Unknown Rx (0.083 %) solution for nebulization breathing #180 vials ipratropium bromide 42 mcg (0.06 2 spray intranasal TID PRN DRY NOSE 03/10/23 Unknown History %) nasal spray latanoprost 0.005 % eye drops 1 drp ophthalmic (eye) QPM 03/10/23 Unknown History albuterol sulfate 90 mcg/actuation 2 puff inhalation Q4H PRN 09/14/23 Unknown Rx aerosol inhaler (Ventolin HFA) shortness of breath or wheezing #3 ea semaglutide (weight loss) 0.5 1 mg subcut QWEEK 09/28/23 Unknown History mg/0.5 mL subcutaneous pen injector apixaban 5 mg tablet (Eliquis) 5 mg PO BID anticoagulant #180 tabs 11/29/23 01/08/24 Rx atorvastatin 10 mg tablet 10 mg PO QHS cholesterol #90 tabs 11/29/23 Unknown Rx diltiazem HCl 180 mg 180 mg PO DAILY heart #90 caps 11/29/23 01/09/24 Rx capsule,extended release 24 hr (Cardizem CD) montelukast 10 mg tablet 10 mg PO QHS asthma #90 tabs 11/29/23 Unknown Rx (Singulair) fluticasone propionate 230 2 puff inhalation BID lungs #3 ea 12/07/23 Unknown Rx mcg-salmeterol 21 mcg/actuation HFA inhaler (Advair HFA) gabapentin 300 mg capsule 300 mg PO TID 01/03/24 01/09/24 History doxycycline hyclate 100 mg capsule 100 mg PO BID 01/07/24 Unknown History prednisone 20 mg tablet See Rx Instructions .Route 01/13/24 Unknown Rx .COMPLEX #24 tabs Allergy/AdvReac Type Severity Reaction Status Date / Time chlorhexidine (From Allergy Severe Hives Verified 01/13/24 08:24 ChloraPrep Clear) isopropyl alcohol (From Allergy Severe Hives Verified 01/13/24 08:24 ChloraPrep Clear) adhesive Allergy SKIN Verified 01/07/24 12:40 TEARS. PAPER TAPE OK azithromycin (From Zithromax) Allergy Rash Verified 01/07/24 12:40 cefuroxime sodium (From Allergy Rash Verified 01/07/24 12:40 Zinacef) clindamycin Allergy Hives Verified 01/07/24 12:40 Sulfa (Sulfonamide Allergy Rash Verified 01/07/24 12:40 Antibiotics) atenolol AdvReac Severe Peripheal Verified 01/07/24 12:40 edema & cough metoprolol (From Toprol XL) AdvReac Severe Peripheral Verified 01/07/24 12:40 edema & cough duloxetine (From Cymbalta) AdvReac Intermediate made me Verified 01/07/24 12:40 feel really sick nitrofurantoin AdvReac Mild unknown Verified 01/07/24 12:40 macrocrystalline (From Macrodantin) Corticosteroids AdvReac Other Verified 01/07/24 12:40 (Glucocorticoids) oxycodone HCl (From Percocet) AdvReac Vomiting Verified 01/07/24 12:40 Family History Mother Hypertension Diabetes Heart disease Pulmonary embolism Father Perforated ulcer Respiratory failure Sister Asthma Hypertension Surgical History History of total left hip replacement Status post total hip replacement, left Status post hip replacement S/P hip replacement Hx of vein stripping S/P hysterectomy History of appendectomy History of cardioversion (~12/2016) History of left heart catheterization H/O hernia repair H/O foot surgery H/O shoulder surgery H/O section H/O: hysterectomy Social History household members: none Smoking Status: Former smoker quit date: 02/14/75 pack-years: 3 second hand exposure: No alcohol intake: never substance use type: does not use caffeine: No what type of physical activity do you participate in: none ROS ROS ED Constitutional Constitutional ED: Denies chills, fever(s) or weight loss Eyes Eyes: Denies change in vision or diplopia ENT ENT ED: Denies ear pain, rhinorrhea or sore throat Cardiovascular Cardiovascular: Denies chest pain, orthopnea, palpitations or racing heartbeat Respiratory/Chest Respiratory/Chest: Denies cough, dyspnea or orthopnea Gastrointestinal Gastrointestinal: Denies abdominal pain, diarrhea, nausea or vomiting Genitourinary Genitourinary ED: Denies dysuria, hematuria or urinary frequency Musculoskeletal Musculoskeletal: Denies arthralgias or myalgias Integumentary Reports rash; Denies abscess Neurologic Neurologic: Denies headache(s) or weakness Psychiatric Psychiatric: Denies anxiety, depression, suicidal ideation or suicidal thoughts Endocrine Endocrinology: Denies polydipsia, polyphagia or polyuria Allergic/Immunologic Allergic/Immunologic ED: Denies mouth swelling, tongue swelling or urticaria EXAM Physical Exam Narrative Exam Narrative: Patient clinically appears well. Const Vital Signs: 01/13/24 08:34 01/13/24 11:39 Temperature 97.3 F L 98.3 F Temperature Source Temporal Pulse Rate 89 81 Respiratory Rate 14 18 Blood Pressure 138/83 H 136/73 H Blood Pressure Mean 101 94 Pulse Ox 98 98 Oxygen Delivery Method Room Air Positive well nourished, well developed and obese General Appearance ED: well developed and NAD Nutritional Appearance: obese HEENT Reports normocephalic, head/scalp atraumatic and moist mucous membranes Eyes PERRL and EOMs intact bilaterally Neck no lymphadenopathy, supple and no JVD Resp normal respiratory effort and clear to auscultation bilaterally Cardio regular rate, regular rhythm and no murmurs GI normal to inspection, nondistended, normoactive bowel sounds and non-tender Palpation: soft Back/Spine no CVA tenderness and normal ROM Extremity Extremity Narrative: Appears to have a chronic venous ulcer of the right medial ankle. See skin exam. General Extremety ED: Negative for edema General Extremity: Negative for edema Neuro oriented x3 and CN's II-XII intact bilaterally Sensorium / Orientation: alert Motor Exam: strength 5/5 throughout Psych mental status grossly normal Mood & Affect: Negative for depressed or tearful Skin no wounds Skin Narrative: Right leg demonstrates appears to be palpable purpura some areas coalescing others her discrete circular lesions of the right lower extremity greatest over the lower leg region. There is very faint amount located over the left medial thigh. MDM MDM MDM Narrative Medical decision making narrative: Differential diagnosis includes but not limited to ITP TTP vasculitis petechiae infection White count 8.1 hemoglobin 11.3 platelet count 394 ESR 54 reticulocyte count 2.19 INR 1.5 PTT 29.9 creatinine is elevated off baseline 2.11 with a BUN of 35. Patient notes that she has not been drinking very well. CRP of 14 LDH is normal at 224. Pictures of the rash were taken and placed into the chart. I spoke with Dr. Higuera. I do not feel at this point ITP TTP is diagnosed. Patient clinically appears well. This could be a vasculitis related to the chlorhexidine prep. I talked with the patient and with Dr. Higuera. We can be placing her on prednisone and have her follow-up early next week. She is going to be drinking plenty of fluids and will need to have her creatinine rechecked. Patient understands return instructions is comfortable with the History & Record Review Discussion w/independent historian: Patient Lab Data Attestation: I reviewed the patient's lab results. Labs: Laboratory Results - last 24 hr 01/13/24 09:05 WBC 8.1 RBC 3.85 L Hgb 11.3 L Hct 36.5 L MCV 94.8 MCH 29.4 MCHC 31.0 L RDW Std Deviation 50.5 H RDW Coeff of Lanre 14.8 H Plt Count 394 MPV 9.9 Immature Gran % (Auto) 0.600 Neut % (Auto) 64.3 Lymph % (Auto) 20.9 Meade % (Auto) 8.4 Eos % (Auto) 5.3 H Baso % (Auto) 0.5 Absolute Neuts (auto) 5.2 Absolute Lymphs (auto) 1.69 Nucleated RBC % 0 ESR 54 H Retic Count 2.19 H Immature Retic Fraction 16.60 H Retic Hgb Equivalent 30.2 PT 18.3 H INR 1.5 APTT 29.9 Sodium 139 Potassium 3.8 Chloride 106 Carbon Dioxide 26.0 Anion Gap 7 BUN 35 H Creatinine 2.11 H Est GFR (MDRD) Af Amer 30 L Est GFR (MDRD) Non-Af 25 L BUN/Creatinine Ratio 16.6 Glucose 83 Calcium 10.1 Total Bilirubin 0.60 Direct Bilirubin 0.16 AST 11 L ALT 16 Alkaline Phosphatase 106 Lactate Dehydrogenase 224 C-React Prot Ext Range 14.20 H Total Protein 7.6 Albumin 3.1 L Globulin 4.5 H Management Discussion w/another healthcare provider: [employer] Maint Eng (Dr Higuera) Discharge Plan Triage Chief Complaint: Lower Extremity Injury ED Provider: Darrian Valdivia Dx/Rx/DC Orders Clinical Impression: Vasculitis, Purpura Prescriptions: New prednisone 20 mg tablet See Rx Instructions .ROUTE .COMPLEX Qty: 24 0RF Rx Instructions: 3 tabs p.o. daily x 4 days then 2 tabs p.o. daily x 4 days then 1 tab p.o. daily x 4 days No Action famotidine 40 mg tablet 40 mg PO QHS esomeprazole magnesium [Nexium] 40 mg capsule,delayed release(DR/EC) 40 mg PO DAILY potassium chloride 20 mEq tablet,ER particles/crystals 20 meq PO BID semaglutide (weight loss) 0.5 mg/0.5 mL pen injector 1 mg subcut QWEEK Rx Instructions: administer weeks 5 through 8 of therapy latanoprost 0.005 % drops 1 drp ophthalmic (eye) QPM Rx Instructions: BOTH EYES ipratropium bromide 42 mcg (0.06 %) spray,non-aerosol 2 spray intranasal TID PRN (Reason: DRY NOSE) doxycycline hyclate 100 mg capsule 100 mg PO BID levothyroxine 25 mcg tablet 25 mcg PO DAILY@0600 Patient Comments: thyroid furosemide [Lasix] 40 mg tablet 40 mg PO BID cholecalciferol (vitamin D3) 50 mcg (2,000 unit) Capsule 50 mcg PO DAILY ferrous sulfate 325 MG tablet 325 mg PO DAILY Rx Instructions: Take 1 hour before doxycycline or in empty stomach while patient is on doxycycline to avoid drug drug interaction. acetaminophen 500 mg tablet 1,000 mg PO Q8 PRN (Reason: pain of temp > 101) Qty: 0 0RF gabapentin 300 mg capsule 300 mg PO TID albuterol sulfate 2.5 mg /3 mL (0.083 %) solution for nebulization 2.5 mg INHALATION Q4H PRN Qty: 180 6RF Rx Instructions: Use q4 hours and PRN for wheezing albuterol sulfate [Ventolin HFA] 90 mcg/actuation HFA aerosol inhaler 2 puff inhalation Q4H PRN (Reason: shortness of breath or wheezing) Qty: 3 3RF Eliquis 5 mg tablet 5 mg PO BID Qty: 180 3RF atorvastatin 10 mg tablet 10 mg PO QHS Qty: 90 3RF diltiazem HCl [Cardizem CD] 180 mg capsule,extended release 24hr 180 mg PO DAILY Qty: 90 3RF Rx Instructions: Hold for heart less than 60 or systolic blood pressure less than 100 mmHg. montelukast [Singulair] 10 mg tablet 10 mg PO QHS Qty: 90 3RF fluticasone propion-salmeterol [Advair HFA] 230-21 mcg/actuation HFA aerosol inhaler 2 puff INHALATION BID Qty: 3 3RF Primary Care Provider: Terry Donnelly Referrals: Terry Donnelly MD [Primary Care Provider] - Keep Abdelrahman appointment Joo Higuera MD [Med Staff - Active Staff] - As soon as possible Print Language: Danish Disposition Disposition: Home, Self Care
--- NOTE | 2024-01-13 09:27 | ED.RN ---
Right leg right inner lower leg right outer lower leg
[2024-01-13 09:28] LABS: Absolute Lymphocyte Count 1.69 X10^3/uL (0.83-4.51); Absolute Neutrophil Count 5.2 X10^3/uL (2.0-7.7); Basophil# 0.04 X10^3/uL; Basophil% 0.5 % (0-1); Eosinophil# 0.43 X10^3/uL; Eosinophils% 5.3 % (0-5); Hematocrit 36.5 % (37-47); Hemoglobin 11.3 g/dL (12.0-15.0); Lymphocyte # 1.69 X10^3/ul (0.83-4.51); Lymphocyte % 20.9 % (19-41); Mean Corpuscular Hgb 29.4 pg (27.0-32.0); Mean Corpuscular Volume 94.8 fL (81-99); Mean Platelet Vol. 9.9 fl (6.2-12.0); Monocyte# 0.68 X10^3/uL; Monocyte% 8.4 % (0-10); NRBC Flagged by Analyzer 0 % (0-5); Neutrophil # 5.21 X10^3/uL (2.7-7.7); Neutrophil % 64.3 % (47-70); Platelet Count 394 K/mm3 (150-450); RBC Distribution Width CV 14.8 % (11.6-14.6); RBC Distribution Width SD 50.5 fl (35.1-43.9); RET-HE 30.2 pg (30-35); Red Blood Count 3.85 M/mm3 (4.2-5.4); Reticulocyte Count 2.19 % (0.5-1.5); White Blood Count 8.1 K/mm3 (4.4-11.0)
[2024-01-13 09:44] LABS: International Normalized Ratio 1.5; Prothrombin Time (Protime)PT. 18.3 SECONDS (11.7-14.9)
[2024-01-13 09:45] LABS: Partial Thromboplast Time 29.9 Seconds (24.1-36.2)
[2024-01-13 09:55] LABS: AST(SGOT) 11 U/L (15-37); Alanine Aminotransfer ALT/SGPT 16 U/L (13-56); Albumin, Serum 3.1 g/dL (3.2-5.0); Alkaline Phosphatase 106 U/L (45-117); Anion Gap 7 (5-15); BUN 35 mg/dL (7-18); BUN/Creat Ratio 16.6 RATIO (10-20); Bilirubin, Direct 0.16 mg/dL (0.00-0.30); Calcium,Total 10.1 mg/dL (8.5-10.1); Chloride 106 mmol/L (98-107); Creatinine, Serum 2.11 mg/dL (0.55-1.02); EST Glomerular Filtration Rate 25 mL/min (>60); Est Glom Filt Rate - Afr Amer 30 mL/min (>60); Globulin 4.5 g/dL (2.2-4.2); Glucose 83 mg/dL (74-106); LDH 224 U/L (84-246); Potassium 3.8 mmol/L (3.5-5.1); Protein, Total 7.6 g/dL (6.4-8.2); Sodium Level 139 mmol/L (136-145)
[2024-01-13 11:38] VITALS: BMI 38.4
[2024-01-13 11:39] VITALS: BP 136/73; PULSE 81; RESP 18; TEMP 36.8; O2SAT 98
[2024-01-13 11:44] LABS: Erythrocyte Sedimentation Rate 54 mm/hr (0-30)
[2024-01-14 08:08] LABS: Haptoglobin 414 mg/dL (37-355)
== END 2024-01-13 12:01 | disposition home or self-care (01) ==
PROVIDERS: Emergency Provider Emergency Medicine; PCP Family Medicine; Visit Provider Emergency Medicine
DX: D69.0 Allergic purpura (principal); I11.0 Hypertensive heart disease with heart failure; I50.32 Chronic diastolic (congestive) heart failure; J44.9 Chronic obstructive pulmonary disease, unspecified; I48.0 Paroxysmal atrial fibrillation; E11.9 Type 2 diabetes mellitus without complications; E78.00 Pure hypercholesterolemia, unspecified; D69.2 Other nonthrombocytopenic purpura; Z87.891 Personal history of nicotine dependence; Z90.710 Acquired absence of both cervix and uterus; Z79.01 Long term (current) use of anticoagulants; E03.9 Hypothyroidism, unspecified; Z79.890 Hormone replacement therapy; Z79.899 Other long term (current) drug therapy; Z79.51 Long term (current) use of inhaled steroids; K21.9 Gastro-esophageal reflux disease without esophagitis; Z96.642 Presence of left artificial hip joint; Z90.49 Acquired absence of other specified parts of digestive tract
CPT/HCPCS: 80048; 80076; 83010; 83615; 85025; 85045; 85610; 85652; 85730; 86140; 99284; A4216

== ENCOUNTER → 2024-01-13 | Outpatient (CLI) | payer MEDICARE, OTHER, SELFPAY ==
[2024-01-09 08:13] VITALS: BMI 40.8
--- NOTE | 2024-01-13 07:34 | VDLE_ITS ---
Reason For Study: Right leg pain s/p emergency crew supervisor ablation 01/09/24 RIGHT CFV is compressible, spontaneous, phasic, competent and demonstrates normal augmentation. FV is compressible, spontaneous, phasic, competent and demonstrates normal augmentation. POP V is compressible, spontaneous, phasic, competent and demonstrates normal augmentation. T/P Trunk is compressible. PTV is compressible. RT PerV is compressible. Pt has HX of RT GSV EVLA 2 perforators noted at mid and distal calf, flow noted within with compressibility. Procedure This is a venous duplex using B-mode, color flow and spectral Doppler. Exam performed in department. VL/Venous Duplex US, Unilateral Interpretation Summary Deep veins of the right lower extremity are patent and compressible segmentally . There is no evidence of right lower extremity deep vein thrombosis. Ordering Physician: Indu Granados Referring Physician: Terry Donnelly MD Performed By: Astrid Hawkins RVT
== END | disposition home or self-care (01) ==
LOC: CVS 07:34
PROVIDERS: PCP Family Medicine; Referring Provider Physician Assistant; Visit Provider Physician Assistant
DX: I87.2 Venous insufficiency (chronic) (peripheral) (principal); L97.312 Non-pressure chronic ulcer of right ankle with fat layer exposed
CPT/HCPCS: 93971

== ENCOUNTER 2024-01-17 09:45 | Outpatient (RCR) | payer MEDICARE, OTHER, SELFPAY ==
[2024-01-15 00:13] VITALS: BP 142/63; PULSE 86; RESP 18; TEMP 35.8; BMI 102.8
[2024-01-17 09:46] VITALS: BP 180/73; PULSE 89; RESP 18; TEMP 36.3; BMI 102.8
--- NOTE | 2024-01-17 11:03 | PN.PCM_ITS ---
History of Present Illness Date of Service: 01/17/24 Chief Complaint: Follow-up surgical wound dehiscence History of Wound: Patient has had this wound for several weeks and has noticed worsening with increased serous drainage. Patient denies any fever chills nausea vomiting chest pain calf pain shortness of breath.68-year-old female presents today with a venous leg ulceration to her right leg. Patient has no other complaints. Objective Data Objective Data Vital Signs: Vital Signs Temp Pulse Resp BP 97.3 F L 89 18 180/73 H 01/17/24 09:46 01/17/24 09:46 01/17/24 09:46 01/17/24 09:46 Weight: 108.409 kg Body Mass Index (BMI) 102.8 Physical Exam Narrative Neurovascular status unchanged. Right medial ankle wound healed. Const alert and oriented x3 Debridement Note Debridement Note Post-Debridement Measurements and Additional Note: Post-Debridement Measurements/Treatment WC - Nurse 1 - General Ulcer Assessment Start: 01/17/24 09:46 Freq: Status: Active Protocol: MIKE Activity Type Activity Date Activity User E-sign Co-sign Detail Recorded Client Recorded Date Recorded By Document 01/17/24 09:46 RB [id number] 01/17/24 09:48 RB 01/17/24 09:46 WC - Today's Visit Information Type of service Follow-up Visit (Physician/CIVIL ENGINEERING INTERN ) Arrival Mode Ambulatory, Walker Transfer Assistance None Patient Identification Verified (Name & Yes ) Patient Requires Transmission-Based No Precautions Height and Weight Body Mass Index (BMI) 102.8 BMI Classification Obese Vital Signs Temperature (97.8 F-99.1 F) 97.3 F L Temperature Source Temporal Pulse Rate (60-100) 89 Pulse Location Monitor Respiratory Rate (12-18) 18 Respiratory rate source Observation Blood Pressure (90/60-120/80) 180/73 H Blood Pressure Mean (mm Hg) 108 Source Monitor Position Semi-Fowlers Blood Pressure Location Left Arm History Since Last Visit- (Skip if this is Patient's initial visit) Have you changed medications since your Yes last visit? Any new allergies or adverse reactions No Had a fall/change in ADL's that may No increase risk of falls Signs or symptoms of abuse and/or No neglect since last visit Have you been in the hospital since your Yes last visit? Has dressing in place as prescribed Yes Has compression in place as prescribed No Has offloadiing in place as prescribed No Experienced any changes in pain level or No management Pain Scale: 0-10 Numeric Is Patient Pain Free? Yes - Nurse 1 - General Ulcer Measurement Start: 01/17/24 09:46 Freq: Status: Active Protocol: Activity Type Activity Date Activity User E-sign Co-sign Detail Recorded Client Recorded Date Recorded By Document 01/17/24 09:46 RB [id number] 01/17/24 09:48 RB 01/17/24 09:46 Wound Center Nurse 1 #3 RT MED ANKLE -Combined with other wound No -Current Size (cm) - Length 0 -Current Size (cm) - Width 0 -Current Size (cm) - Depth 0 -Total Square Cm 0 -Photo Taken Yes -Epithelialization Large 67-100% FABRIZIO - Nurse 2 - General Ulcer CM Notes Start: 01/17/24 09:46 Freq: Status: Active Protocol: Activity Type Activity Date Activity User E-sign Co-sign Detail Recorded Client Recorded Date Recorded By Document 01/17/24 09:59 BECCA [id number] 01/17/24 10:01 BECCA 01/17/24 09:59 Wound Center Nurse 2 -Correct Patient No -Correct Side, Site, Position No -Correct Procedure No -Procedure Performed No -Post Debridement (cm) - Length 0 -Post Debridement (cm) - Width 0 -Post Debridement (cm) - Depth 0 -Total Square (Post) (cm) 0 -Area of Debridement (cm) - Length 0 -Area of Debridement (cm) - Width 0 -Total Square (Area) (cm) 0 -Wound/Ulcer Outcome Healed- Epithelialized Pain Scale: 0-10 Numeric Is Patient Pain Free? Yes FABRIZIO - Nurse 3 - General Ulcer D/C NN Start: 01/17/24 09:46 Freq: Status: Active Protocol: Activity Type Activity Date Activity User E-sign Co-sign Detail Recorded Client Recorded Date Recorded By Document 01/17/24 10:01 BECCA [id number] 01/17/24 10:01 BECCA Edit Result 01/17/24 10:01 BECCA (1) [id number] 01/17/24 10:07 BECCA (1) Right - Size of Tubigrip Used Size D => Size E - Size D ($) 2 => - Size E ($) => 2 01/17/24 10:01 Wound Care Center Nurse 3 Right -Tubular Bandage Double Layer -Size of Tubigrip Used Size E -Size E ($) 2 Pain Scale: 0-10 Numeric Is Patient Pain Free? Yes WC - Visit Discharge Discharge Condition Stable Ambulatory Status Ambulatory Transportation Private Auto Medication Reconcilliation completed & Yes provided to patient/care provider Clinical Summary of Care Provided Yes Assessment/Plan Assessment/Plan (1) Non-pressure chronic ulcer of right ankle with fat layer exposed: CODE(S): L97.312 - Non-pressure chronic ulcer of right ankle with fat layer exposed PLAN: Exam performed Venous ablation performed. Right ankle wound healed. Recommend daily compression exercise and elevation for edema management. Recommended 20 to 30 mm gradient compression stockings. Follow-up at office for at risk nail care. (2) Venous insufficiency (chronic) (peripheral): CODE(S): I87.2 - Venous insufficiency (chronic) (peripheral)
--- NOTE | 2024-01-20 11:20 | WC ---
PHOTO 01/17/24 SHARONA IZQUIERDO
== END 2024-01-17 16:14 | disposition home or self-care (01) ==
LOC: WC 09:45
PROVIDERS: PCP Family Medicine; Referring Provider Podiatrist; Visit Provider Podiatrist
DX: L97.312 Non-pressure chronic ulcer of right ankle with fat layer exposed (principal); I87.2 Venous insufficiency (chronic) (peripheral)
CPT/HCPCS: 99213; G0463

== ENCOUNTER → 2024-01-17 | Outpatient (CLI) | payer MEDICARE, OTHER, SELFPAY ==
--- NOTE | 2024-01-17 16:48 | RAD_ITS ---
INDICATION: Worsening radiculopathy EXAMINATION/TECHNIQUE: X-RAY - XR Spine Lumbar 2 or 3 Views COMPARISON: Prior study dated: 11/12/2022 FINDINGS: VERTEBRAE: Preserved vertebral body height. No fracture. No spondylolisthesis. Preservation of the normal lumbar lordosis. Prominent levoscoliosis centered at L3. Diffuse facet arthropathy. DISCS: Diffuse disc space narrowing with endplate osteophytes. INCLUDED ABDOMEN: Included bowel gas pattern is non-obstructive. Left total hip arthroplasty noted. RAD/Lumbar Spine 2 or 3 Views IMPRESSION: No evidence of lumbar spinal fracture or spondylolisthesis. Moderate degenerative changes. Similar appearance to previous. Electronically Signed: Abhijeet Vail MD at 20:03 EST ,
== END | disposition home or self-care (01) ==
LOC: MTRAD 16:48
PROVIDERS: PCP Family Medicine; Referring Provider Family Medicine; Visit Provider Family Medicine
DX: M54.10 Radiculopathy, site unspecified (principal)
CPT/HCPCS: 72100

== ENCOUNTER 2024-01-24 18:05 | Emergency (ER) | payer MEDICARE, OTHER, SELFPAY ==
[2024-01-24 18:07] VITALS: BP 129/74; PULSE 97; RESP 18; TEMP 36.6; O2SAT 100
[2024-01-24 18:11] VITALS: BMI 37.9
[2024-01-24 20:06] VITALS: PULSE 87; RESP 100; O2SAT 18
--- NOTE | 2024-01-24 20:21 | EKG12_ITS ---
Test Reason : DYSRYTHMIA Blood Pressure : */* mmHG Vent. Rate : 91 BPM Atrial Rate : 91 BPM P-R Int : 156 ms QRS Dur : 70 ms QT Int : 372 ms P-R-T Axes : -2 -30 52 degrees QTcB Int : 457 ms Sinus rhythm with Premature supraventricular complexes Left axis deviation Abnormal ECG Confirmed by ROB CARMONA, SHAHRZAD ([id number]), development editor VERO ALANIS ([id number]) on 01/25/2024 11:38:17 AM Referred By: Confirmed By: SHAHRZAD RIVAS MD
--- NOTE | 2024-01-24 20:22 | EDS_ITS ---
HPI History of Present Illness Chief Complaint: Cold Sx Detail of Chief Complaint: Cough and not feeling well Informant: patient Narrative Narrative: Patient presents to the emergency department complaint not feeling well for the last 5 days. She has had a cough that is mostly nonproductive. She complains of nausea and having a hard time eating. Patient states that she had recent ablation on her right leg by Dr. Higuera and then developed a vasculitis for which she was started on high-dose steroids. She is not sure if the steroids upset her stomach because she is having some chest pressure and she is tried an acids which are not helping. 7 hard time eating. She denies fevers. She also tells me she was recently treated for MRSA with doxycycline for positive sputum culture that also grew out Pseudomonas. Patient is a diabetic. [facility] Medical History Necrosis Venous ulcer Essential hypertension Hyperlipidemia Asthma Iron deficiency anemia Vitamin D deficiency Chronic diastolic congestive heart failure Hypothyroidism Allergic rhinitis Gastroesophageal reflux disease History of COPD History of diabetes mellitus Atrial fibrillation Hypertension Easy bruising History of stress test History of echocardiogram Cardiology follow-up encounter Wears glasses Anxiety Diabetes Walker as ambulation aid History of renal disease Anemia Migraine headache Back pain Injury of back Shortness of breath on exertion History of edema Pain of left hip Bronchiectasis with (acute) exacerbation High cholesterol Hypothyroidism Kidney disease Former smoker Congestive heart failure (CHF) Hypertension Hypoxemia Bronchiectasis Pneumonia due to Pseudomonas Cough Palpitations Paroxysmal atrial fibrillation Chronic diastolic heart failure GAGAN (obstructive sleep apnea) Septic shock 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 COPD with acute exacerbation Lung nodule Thrush, oral History of DVT (deep vein thrombosis) Abnormal chest CT Shortness of breath Cavitary lesion of lung Aspiration into airway Obesity Chronic respiratory failure Precordial chest pain Paroxysmal atrial tachycardia Right foot pain MRSA pneumonia Venous thromboembolism (VTE) Hyperlipidemia Diabetes mellitus HCAP (healthcare-associated pneumonia) Severe sepsis Coarse tremors Weakness Acute respiratory failure DVT (deep venous thrombosis) Pulmonary embolism Allergic rhinitis Insomnia Steroid myopathy Atrial fibrillation with rapid ventricular response Pneumonia ALEXYS (acute kidney injury) PVD (peripheral vascular disease) Atrial tachycardia Morbid obesity Acute bronchiolitis Tachycardia Hx pulmonary embolism Cellulitis of right lower extremity Umbilical hernia Gastroesophageal reflux disease COLD (chronic obstructive lung disease) Benign essential HTN Home Medications ?Medication ?Instructions ?Recorded ?Last Taken ?Type levothyroxine 25 mcg tablet 25 mcg PO DAILY@0600 thyroid 01/04/20 01/09/24 History famotidine 40 mg tablet 40 mg PO QHS reflux 04/02/20 07/03/21 23:04 History cholecalciferol (vitamin D3) 50 50 mcg PO DAILY SUPPLEMENT 09/19/20 07/04/21 05:54 History mcg (2,000 unit) capsule furosemide 40 mg tablet (Lasix) 40 mg PO BID water pill 09/19/20 07/04/21 05:52 History esomeprazole magnesium 40 mg 40 mg PO DAILY reflux 10/13/20 01/09/24 History capsule,delayed release (Nexium) potassium chloride 20 mEq 20 meq PO BID supplement 10/13/20 01/09/24 History tablet,extended release(part/cryst) ferrous sulfate 325 mg (65 mg 325 mg PO DAILY anemia 06/26/21 01/09/24 History iron) tablet acetaminophen 500 mg tablet 1,000 mg (2 x 500 mg) PO Q8 PRN 07/14/21 01/09/24 Rx pain of temp > 101 #0 tabs albuterol sulfate 2.5 mg/3 mL 2.5 mg (3 mL) inhalation Q4H PRN 05/17/22 Unknown Rx (0.083 %) solution for nebulization breathing #180 vials ipratropium bromide 42 mcg (0.06 2 spray intranasal TID PRN DRY NOSE 03/10/23 Unknown History %) nasal spray latanoprost 0.005 % eye drops 1 drp ophthalmic (eye) QPM 03/10/23 Unknown History albuterol sulfate 90 mcg/actuation 2 puff inhalation Q4H PRN 09/14/23 Unknown Rx aerosol inhaler (Ventolin HFA) shortness of breath or wheezing #3 ea semaglutide (weight loss) 0.5 1 mg subcut QWEEK 09/28/23 Unknown History mg/0.5 mL subcutaneous pen injector apixaban 5 mg tablet (Eliquis) 5 mg PO BID anticoagulant #180 tabs 11/29/23 01/08/24 Rx atorvastatin 10 mg tablet 10 mg PO QHS cholesterol #90 tabs 11/29/23 Unknown Rx diltiazem HCl 180 mg 180 mg PO DAILY heart #90 caps 11/29/23 01/09/24 Rx capsule,extended release 24 hr (Cardizem CD) montelukast 10 mg tablet 10 mg PO QHS asthma #90 tabs 11/29/23 Unknown Rx (Singulair) fluticasone propionate 230 2 puff inhalation BID lungs #3 ea 12/07/23 Unknown Rx mcg-salmeterol 21 mcg/actuation HFA inhaler (Advair HFA) gabapentin 300 mg capsule 300 mg PO TID 01/03/24 01/09/24 History doxycycline hyclate 100 mg capsule 100 mg PO BID 01/07/24 Unknown History prednisone 20 mg tablet See Rx Instructions .Route 01/13/24 Unknown Rx .COMPLEX #24 tabs ondansetron 4 mg disintegrating 4 mg PO Q8H PRN PRN Nausea #10 tabs 01/24/24 Unknown Rx tablet sucralfate 1 gram tablet (Carafate) 1 g PO BID PRN reflux #14 tabs 01/24/24 Un known Rx Allergy/AdvReac Type Severity Reaction Status Date / Time chlorhexidine (From Allergy Severe Hives Verified 01/24/24 18:07 ChloraPrep Clear) isopropyl alcohol (From Allergy Severe Hives Verified 01/24/24 18:07 ChloraPrep Clear) adhesive Allergy SKIN Verified 01/24/24 18:07 TEARS. PAPER TAPE OK azithromycin (From Zithromax) Allergy Rash Verified 01/24/24 18:07 cefuroxime sodium (From Allergy Rash Verified 01/24/24 18:07 Zinacef) clindamycin Allergy Hives Verified 01/24/24 18:07 Sulfa (Sulfonamide Allergy Rash Verified 01/24/24 18:07 Antibiotics) atenolol AdvReac Severe Peripheal Verified 01/24/24 18:07 edema & cough metoprolol (From Toprol XL) AdvReac Severe Peripheral Verified 01/24/24 18:07 edema & cough duloxetine (From Cymbalta) AdvReac Intermediate made me Verified 01/24/24 18:07 feel really sick nitrofurantoin AdvReac Mild unknown Verified 01/24/24 18:07 macrocrystalline (From Macrodantin) Corticosteroids AdvReac Other Verified 01/24/24 18:07 (Glucocorticoids) oxycodone HCl (From Percocet) AdvReac Vomiting Verified 01/24/24 18:07 Family History Mother Hypertension Diabetes Heart disease Pulmonary embolism Father Perforated ulcer Respiratory failure Sister Asthma Hypertension Surgical History History of total left hip replacement Status post total hip replacement, left Status post hip replacement S/P hip replacement Hx of vein stripping S/P hysterectomy History of appendectomy History of cardioversion (~12/2016) History of left heart catheterization H/O hernia repair H/O foot surgery H/O shoulder surgery H/O section H/O: hysterectomy Social History household members: none Smoking Status: Former smoker quit date: 02/14/75 pack-years: 3 second hand exposure: No alcohol intake: never substance use type: does not use caffeine: No what type of physical activity do you participate in: none ROS ROS ED Review of Systems ROS Unobtainable: other Constitutional Constitutional ED: Reports lethargy; Denies chills, fever(s), sweats or weight loss Eyes Eyes: Denies blurry vision, change in vision or diplopia ENT ENT ED: Denies rhinorrhea or sore throat Cardiovascular Cardiovascular: Reports chest pain; Denies orthopnea or racing heartbeat Respiratory/Chest Respiratory/Chest: Reports cough and dyspnea on exertion; Denies dyspnea, orthopnea or sputum Gastrointestinal Gastrointestinal: Denies abdominal pain, diarrhea, nausea or vomiting Genitourinary Genitourinary ED: Denies dysuria, hematuria or urinary frequency Musculoskeletal Musculoskeletal: Denies arthralgias, back pain, myalgias or neck pain Integumentary Denies abscess, Abrasions or rash Neurologic Neurologic: Denies headache(s) or weakness Psychiatric Psychiatric: Denies anxiety, depression or suicidal thoughts Endocrine Endocrinology: Denies polydipsia, polyphagia or polyuria Hematologic/Lymphatic Hematologic/Lymphatic: Denies easy bleeding, easy bruising or lymphadenopathy Allergic/Immunologic Allergic/Immunologic ED: Denies mouth swelling, tongue swelling or urticaria EXAM Physical Exam Const Vital Signs: 01/24/24 18:07 01/24/24 20:06 01/24/24 20:43 Temperature 97.9 F Temperature Source Oral Pulse Rate 97 87 Respiratory Rate 18 100 H Respiratory Pattern Normal Blood Pressure 129/74 H Blood Pressure Mean 92 Pulse Ox 100 18 Oxygen Delivery Method Room Air Room Air Positive well nourished and well developed General Appearance ED: well developed and NAD HEENT Reports TM's clear and moist mucous membranes normocephalic and atraumatic; Negative for trauma or tenderness Tympanic Membrane ED: Yes TM's clear Eyes PERRL and EOMs intact bilaterally General Eye ED: Negative for pale conjunctiva or scleral icterus Neck no lymphadenopathy, supple and no JVD General: Negative for tenderness Chest Wall inspection of chest normal and palpation of chest normal Chest: Negative for tenderness Resp normal respiratory effort and clear to auscultation bilaterally Effort and Inspection: Negative for respiratory distress or pain with movement Auscultation: Negative for rhonchi, wheezes or diminished lung sounds Cardio regular rate, regular rhythm, S1 normal heart sound, S2 normal heart sound and no murmurs Peripheral Pulses: pulses 2+ throughout GI normal to inspection, nondistended, normoactive bowel sounds, soft to palpation, non-tender, non-distended and no masses Back/Spine no CVA tenderness and no thoracic nor lumbar tenderness Extremity normal to inspection General Extremety ED: Negative for edema General Extremity: Negative for edema Neuro oriented x3, CN's II-XII intact bilaterally, no sensory deficits noted and gait normal Sensorium / Orientation: awake, alert, oriented to person, oriented to place and oriented to time Motor Exam: strength 5/5 throughout and strength abnormal Psych mental status grossly normal Skin no rashes or lesions noted and no wounds MDM MDM MDM Narrative Medical decision making narrative: Patient presents with complaint of just not feeling well. She complains of nausea and central chest discomfort. She has had a cough for some time and sees Dr. Orta who recently ordered a sputum culture and she grew out Pseudomonas and Staph aureus. She was treated with doxycycline but the Pseudomonas was only sensitive to IV antibiotics. There has been talk of her getting a PICC line and IV antibiotics for this. Patient also recently had a vasculitis and was on high-dose prednisone which she thinks may have caused some stomach inflammation and gastritis causing her nausea and upper and central chest discomfort. Patient does take Nexium and Pepcid which she does not feel is helping. IV line established on arrival and EKG obtained showed a sinus rhythm with rate of 91 bpm with occasional PACs. CBC with differential shows a white count of 15.9 which is suspect is likely related to steroid usage. Hemoglobin was 13.2 and platelet count of 367. Chemistries unremarkable. Troponin was normal at 9. LFTs were normal and lipase was normal at 55. We did obtain COVID flu and RSV testing which was negative. She had a chest x-ray that showed a small right pleural effusion versus possible scarring but no infiltrate or other acute disease process. I had a discussion with patient about further treatment options. Offered admission for IV antibiotics for her Pseudomonas positive culture that is only responsive to IV antibiotics. Patient would prefer to follow-up as an outpatient with her infectious disease specialist and potentially set up a PICC line and IV antibiotics as an outpatient and does not want to be admitted. I will write her a prescription for Zofran and Carafate. Clinically she looks well and vital signs are stable. Patient advised to follow-up with her infectious disease specialist. Lab Data Attestation: I reviewed the patient's lab results. Labs: Laboratory Results - last 24 hr 01/24/24 20:30 WBC 15.9 H RBC 4.48 Hgb 13.2 Hct 42.1 MCV 94.0 MCH 29.5 MCHC 31.4 L RDW Std Deviation 50.5 H RDW Coeff of Lanre 14.6 Plt Count 367 MPV 10.6 Immature Gran % (Auto) 1.000 H Neut % (Auto) 77.7 H Lymph % (Auto) 10.2 L Ross % (Auto) 10.3 H Eos % (Auto) 0.5 Baso % (Auto) 0.3 Absolute Neuts (auto) 12.4 H Absolute Lymphs (auto) 1.62 Nucleated RBC % 0 Diff Path Review May foll Platelet Estimate ADEQUATE Hypochromasia 1+ Anisocytosis 2+ Stomatocytes RARE Sodium 138 Potassium 3.5 Chloride 103 Carbon Dioxide 26.0 Anion Gap 9 BUN 23 H Creatinine 1.58 H Estim Creat Clear Calc 34.06 Est GFR (MDRD) Af Amer 42 L Est GFR (MDRD) Non-Af 34 L BUN/Creatinine Ratio 14.6 Glucose 126 H Lactic Acid 1.6 Calcium 9.3 Total Bilirubin 0.90 AST 9 L ALT 24 Alkaline Phosphatase 130 H Troponin I High Sens 9 Total Protein 7.4 Albumin 3.1 L Globulin 4.3 H Albumin/Globulin Ratio 0.7 L Lipase 55 Radiography Diagnostic Testing: Clinical Impression(s) from Imaging Studies Chest X-Ray 01/24/24 20:30 IMPRESSION: Possible small right pleural effusion versus pleural scarring. No acute consolidative process. Electronically Signed: Aly Gallardo MD at 21:39 EST , 1 view chest x-ray obtained interpreted by myself as no evidence of acute infiltrate or pneumothorax or acute disease process. Radiology in agreement felt there was a possible small right pleural effusion versus pleural scarring. EKG Initial EKG: Attestation: I personally reviewed and interpreted this EKG as follows: Comments: Sinus rhythm with ventricular rate of 91 bpm with occasional PACs. Discharge Plan Triage Chief Complaint: Cold Sx ED Provider: Katelyn Davis Dx/Rx/DC Orders Clinical Impression: Acute upper respiratory infection Instructions: ED Upper Resp Infec Abx Tx, ED URI, Viral, No Abx (Adult) Prescriptions: New ondansetron 4 mg tablet,disintegrating 4 mg PO Q8H PRN PRN (Reason: Nausea) Qty: 10 0RF sucralfate [Carafate] 1 gram tablet 1 g PO BID PRN (Reason: reflux) Qty: 14 0RF No Action famotidine 40 mg tablet 40 mg PO QHS esomeprazole magnesium [Nexium] 40 mg capsule,delayed release(DR/EC) 40 mg PO DAILY potassium chloride 20 mEq tablet,ER particles/crystals 20 meq PO BID semaglutide (weight loss) 0.5 mg/0.5 mL pen injector 1 mg subcut QWEEK Rx Instructions: administer weeks 5 through 8 of therapy latanoprost 0.005 % drops 1 drp ophthalmic (eye) QPM Rx Instructions: BOTH EYES ipratropium bromide 42 mcg (0.06 %) spray,non-aerosol 2 spray intranasal TID PRN (Reason: DRY NOSE) doxycycline hyclate 100 mg capsule 100 mg PO BID levothyroxine 25 mcg tablet 25 mcg PO DAILY@0600 Patient Comments: thyroid furosemide [Lasix] 40 mg tablet 40 mg PO BID cholecalciferol (vitamin D3) 50 mcg (2,000 unit) Capsule 50 mcg PO DAILY ferrous sulfate 325 MG tablet 325 mg PO DAILY Rx Instructions: Take 1 hour before doxycycline or in empty stomach while patient is on doxycycline to avoid drug drug interaction. acetaminophen 500 mg tablet 1,000 mg PO Q8 PRN (Reason: pain of temp > 101) Qty: 0 0RF gabapentin 300 mg capsule 300 mg PO TID prednisone 20 mg tablet See Rx Instructions .ROUTE .COMPLEX Qty: 24 0RF Rx Instructions: 3 tabs p.o. daily x 4 days then 2 tabs p.o. daily x 4 days then 1 tab p.o. daily x 4 days albuterol sulfate 2.5 mg /3 mL (0.083 %) solution for nebulization 2.5 mg INHALATION Q4H PRN Qty: 180 6RF Rx Instructions: Use q4 hours and PRN for wheezing albuterol sulfate [Ventolin HFA] 90 mcg/actuation HFA aerosol inhaler 2 puff inhalation Q4H PRN (Reason: shortness of breath or wheezing) Qty: 3 3RF Eliquis 5 mg tablet 5 mg PO BID Qty: 180 3RF atorvastatin 10 mg tablet 10 mg PO QHS Qty: 90 3RF diltiazem HCl [Cardizem CD] 180 mg capsule,extended release 24hr 180 mg PO DAILY Qty: 90 3RF Rx Instructions: Hold for heart less than 60 or systolic blood pressure less than 100 mmHg. montelukast [Singulair] 10 mg tablet 10 mg PO QHS Qty: 90 3RF fluticasone propion-salmeterol [Advair HFA] 230-21 mcg/actuation HFA aerosol inhaler 2 puff INHALATION BID Qty: 3 3RF Primary Care Provider: Terry Donnelly Referrals: Terry Donnelly MD [Primary Care Provider] - Activity Restrictions/Additional Instructions: Follow-up with Dr. Orta regarding treatment for the Pseudomonas positive sputum culture. Print Language: Bangladeshi Disposition Disposition: Home, Self Care
--- NOTE | 2024-01-24 20:30 | RAD_ITS ---
INDICATION: cough EXAMINATION/TECHNIQUE: X-RAY - portable upright AP chest x-ray COMPARISON: 08/04/2023 FINDINGS: LINES/DEVICES: None. LUNGS: Stable scattered fibrotic changes without consolidation or vascular congestion. Minimal blunting right costophrenic angle. MEDIASTINUM AND CARDIOVASCULAR STRUCTURES: Cardiac silhouette stable within normal limits. BONES AND SOFT TISSUES: No acute changes. Stable right shoulder prosthesis. RAD/Chest 1 View (Portable) IMPRESSION: Possible small right pleural effusion versus pleural scarring. No acute consolidative process. Electronically Signed: Aly Gallardo MD at 21:39 EST ,
[2024-01-24] MEDS: 0.9% Normal Saline (1000mL) 1,000 ML 1000 ML IV (20:40)
[2024-01-24] MEDS: Ondansetron 4 MG/2 ML Vial IV (20:40)
[2024-01-24 20:44] LABS: Absolute Lymphocyte Count 1.62 X10^3/uL (0.83-4.51); Absolute Neutrophil Count 12.4 X10^3/uL (2.0-7.7); Basophil# 0.04 X10^3/uL; Basophil% 0.3 % (0-1); Eosinophil# 0.08 X10^3/uL; Eosinophils% 0.5 % (0-5); Hematocrit 42.1 % (37-47); Hemoglobin 13.2 g/dL (12.0-15.0); Lymphocyte # 1.62 X10^3/ul (0.83-4.51); Lymphocyte % 10.2 % (19-41); Mean Corp Hgb Conc 31.4 g/dL (32-36); Mean Corpuscular Hgb 29.5 pg (27.0-32.0); Mean Platelet Vol. 10.6 fl (6.2-12.0); Monocyte# 1.63 X10^3/uL; Monocyte% 10.3 % (0-10); NRBC Flagged by Analyzer 0 % (0-5); Neutrophil # 12.35 X10^3/uL (2.7-7.7); Neutrophil % 77.7 % (47-70); POSITIVE DIFFERENTIAL YES; Platelet Count 367 K/mm3 (150-450); RBC Distribution Width CV 14.6 % (11.6-14.6); RBC Distribution Width SD 50.5 fl (35.1-43.9); Red Blood Count 4.48 M/mm3 (4.2-5.4); White Blood Count 15.9 K/mm3 (4.4-11.0)
[2024-01-24 21:04] LABS: ALB/GLOB Ratio 0.7 RATIO (0.9-2.4); AST(SGOT) 9 U/L (15-37); Alanine Aminotransfer ALT/SGPT 24 U/L (13-56); Albumin, Serum 3.1 g/dL (3.2-5.0); Alkaline Phosphatase 130 U/L (45-117); Anion Gap 9 (5-15); BUN 23 mg/dL (7-18); BUN/Creat Ratio 14.6 RATIO (10-20); Calcium,Total 9.3 mg/dL (8.5-10.1); Chloride 103 mmol/L (98-107); Creatinine, Serum 1.58 mg/dL (0.55-1.02); EST Glomerular Filtration Rate 34 mL/min (>60); Est Glom Filt Rate - Afr Amer 42 mL/min (>60); Estimated Creatinine Clearance 34.06 ml/min; Globulin 4.3 g/dL (2.2-4.2); Glucose 126 mg/dL (74-106); Lipase 55 U/L (13-75); Potassium 3.5 mmol/L (3.5-5.1); Protein, Total 7.4 g/dL (6.4-8.2); Sodium Level 138 mmol/L (136-145); Troponin-I HS 9 pg/mL (3.0-54.0)
[2024-01-24 21:08] LABS: Differential Indicated SCAN CRITERIA MET
[2024-01-24 21:11] LABS: Lactic Acid 1.6 mmol/L (0.4-1.9)
[2024-01-24 21:15] LABS: Anisocytosis 2+; Hypochromasia 1+; Platelet Estimate ADEQUATE (ADEQ); Stomatocyte RARE
[2024-01-24 22:00] VITALS: PULSE 82; RESP 16; O2SAT 100
[2024-01-24 22:21] VITALS: BP 129/74; PULSE 82; RESP 16; TEMP 36.6; O2SAT 100
[2024-01-25 13:58] LABS: Pathologist Review Reviewed
== END 2024-01-24 22:28 | disposition home or self-care (01) ==
PROVIDERS: Emergency Provider Emergency Medicine; PCP Family Medicine; Visit Provider Emergency Medicine
DX: J06.9 Acute upper respiratory infection, unspecified (principal); I11.0 Hypertensive heart disease with heart failure; I50.32 Chronic diastolic (congestive) heart failure; J44.9 Chronic obstructive pulmonary disease, unspecified; I48.0 Paroxysmal atrial fibrillation; E11.9 Type 2 diabetes mellitus without complications; Z87.891 Personal history of nicotine dependence; E78.00 Pure hypercholesterolemia, unspecified; E03.9 Hypothyroidism, unspecified; Z79.890 Hormone replacement therapy; K21.9 Gastro-esophageal reflux disease without esophagitis; Z79.85 Long-term (current) use of injectable non-insulin antidiabetic drugs; Z79.01 Long term (current) use of anticoagulants; Z96.642 Presence of left artificial hip joint; Z90.710 Acquired absence of both cervix and uterus; Z90.49 Acquired absence of other specified parts of digestive tract
CPT/HCPCS: 99285; 71045; 80053; 83605; 83690; 84484; 85025; 87040; 87631; 93005; J7030; A4216; J2405

== ENCOUNTER 2024-01-26 16:56 | Inpatient (IN) | payer MEDICARE, OTHER, SELFPAY ==
[2024-01-26 16:58] VITALS: BP 183/77; PULSE 88; RESP 16; TEMP 36.5; O2SAT 98; BMI 39.1
[2024-01-26] MEDS: Ondansetron 4 MG/2 ML Vial IV (17:37)
[2024-01-26] MEDS: Morphine 4 MG/ML Syringe IV (17:39)
--- NOTE | 2024-01-26 17:41 | US_ITS ---
STUDY: VENOUS DOPPLER ULTRASOUND - RIGHT LOWER EXTREMITY REASON FOR EXAM: Female, 69 years old. RT FOOT PAIN TECHNIQUE: Ultrasound evaluation of the deep vein system to include parker-scale imaging and compression was performed. Parker-scale imaging and Doppler sonographic evaluation, including duplex spectral analysis and qualitative color flow sonography, was performed. COMPARISON: None. FINDINGS: Common Femoral Vein: Normal compression, spontaneity and augmentation. Normal color Doppler. Common Femoral Vein/Greater Saphenous Junction: Normal compression, spontaneity and augmentation. Normal color Doppler. Deep Femoral Vein: Normal compression, spontaneity and augmentation. Normal color Doppler. Femoral Proximal: Normal compression, spontaneity and augmentation. Normal color Doppler. Femoral Middle: Normal compression, spontaneity and augmentation. Normal color Doppler. Femoral Distal: Normal compression, spontaneity and augmentation. Normal color Doppler. Popliteal Vein: Normal compression, spontaneity and augmentation. Normal color Doppler. Posterior Tibial Vein: Normal compression, spontaneity and augmentation. Normal color Doppler. Peroneal Vein: Normal compression, spontaneity and augmentation. Normal color Doppler. There is no demonstrated deep venous thrombosis. US/Venous Duplex Imag/Limited/Uni IMPRESSION: Normal venous Doppler ultrasound of the lower extremity. Electronically Signed: Tavo Barrios MD at 19:43 EST ,
--- NOTE | 2024-01-26 17:41 | EX.ED.DYSGE1 ---
HPI History of Present Illness Chief Complaint: Lower Extremity Injury Narrative Narrative: Chief complaint and HPI: Right foot pain. 69-year-old female with history of proximal atrial fibrillation on Eliquis, obesity, venous insufficiency, CKD, DM presents for evaluation of right foot pain. History taken by patient as well as medical chart. On chart review, patient had surgery of her right lower extremity with vascular surgery, Dr. Higuera. Surgery was for venous insufficiency with ulceration of the medial ankle. She had a right lower extremity thread cutter vein ablation. Patient states after the surgery she developed vasculitis in which she was placed on steroids. She states she finished the steroids with improvement of her symptoms. Patient states over the past 4 days she has been having worsening pain in her right foot. She states she called the vascular office and she was supposed to be seen in the office today. She states that she missed her appointment secondary to decreased mobility. Patient states that she can barely ambulate in her house. Patient states today she developed redness and swelling to the right foot. She denies any pain in the ankle. Mild pain in the calf. Denies any fever, chills, shortness of breath, chest pain numbness or tingling. Patient states that the chronic wound on her ankle has healed. She states that she has been having some intermittent nausea and vomiting as well as epigastric pain that started after taking prednisone. She was seen in our emergency department on 01/23 and discharged home. Suspected it was likely gastritis. Of note patient was recently treated for MRSA that was positive in the sputum with doxycycline. She also had a sputum culture that was positive for Pseudomonas that was resistant to everything except for IV antibiotics. There was a discussion about putting a PICC line for IV antibiotics. Patient states that she has had a chronic cough since March. She did not want the PICC line or IV antibiotics which is why this has not been treated. Review of systems: See HPI Medications: As listed on the chart Allergies: As listed on the chart PFSH: Per chart Vital signs: As listed on the chart. Reviewed. Physical exam: Gen: A&O x3, NAD Head: Normocephalic, atraumatic Eyes: No sclera icterus, conjunctiva clear ENT: Moist mucous membranes Neck: Trachea midline, No JVD CV: RRR, no murmurs, no peripheral edema Resp: Lungs CTA BL, no w/r/c GI: Abd soft, non-distended, non-tender, no r/r/g Musc: Right foot is edematous and erythematous mostly along the medial arch and medial dorsum of the foot-tender to palpation and warm, full range of motion of the ankle without any pain, no plantar tenderness or pain, no Achilles tenderness or pain, medial ulcer of the ankle has healed, DP pulse plus 2 out of 4, sensation intact, good capillary refill, compartments soft, mild tenderness to palpation of the calf without any signs of cellulitis or edema Skin: Warm, dry Neuro: Alert, oriented, grossly intact, sensation intact Psych: Cooperative, appropriate mood and affect [facility] Medical History Necrosis Venous ulcer Essential hypertension Hyperlipidemia Asthma Iron deficiency anemia Vitamin D deficiency Chronic diastolic congestive heart failure Hypothyroidism Allergic rhinitis Gastroesophageal reflux disease History of COPD History of diabetes mellitus Atrial fibrillation Hypertension Easy bruising History of stress test History of echocardiogram Cardiology follow-up encounter Wears glasses Anxiety Diabetes Walker as ambulation aid History of renal disease Anemia Migraine headache Back pain Injury of back Shortness of breath on exertion History of edema Pain of left hip Bronchiectasis with (acute) exacerbation High cholesterol Hypothyroidism Kidney disease Former smoker Congestive heart failure (CHF) Hypertension Hypoxemia Bronchiectasis Pneumonia due to Pseudomonas Cough Palpitations Paroxysmal atrial fibrillation Chronic diastolic heart failure GAGAN (obstructive sleep apnea) Septic shock 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 COPD with acute exacerbation Lung nodule Thrush, oral History of DVT (deep vein thrombosis) Abnormal chest CT Shortness of breath Cavitary lesion of lung Aspiration into airway Obesity Chronic respiratory failure Precordial chest pain Paroxysmal atrial tachycardia Right foot pain MRSA pneumonia Venous thromboembolism (VTE) Hyperlipidemia Diabetes mellitus HCAP (healthcare-associated pneumonia) Severe sepsis Coarse tremors Weakness Acute respiratory failure DVT (deep venous thrombosis) Pulmonary embolism Allergic rhinitis Insomnia Steroid myopathy Atrial fibrillation with rapid ventricular response Pneumonia ALEXYS (acute kidney injury) PVD (peripheral vascular disease) Atrial tachycardia Morbid obesity Acute bronchiolitis Tachycardia Hx pulmonary embolism Cellulitis of right lower extremity Umbilical hernia Gastroesophageal reflux disease COLD (chronic obstructive lung disease) Benign essential HTN Home Medications ?Medication ?Instructions ?Recorded ?Last Taken ?Type levothyroxine 25 mcg tablet 25 mcg PO DAILY@0600 thyroid 01/04/20 01/09/24 History famotidine 40 mg tablet 40 mg PO QHS reflux 04/02/20 07/03/21 23:04 History cholecalciferol (vitamin D3) 50 50 mcg PO DAILY SUPPLEMENT 09/19/20 07/04/21 05:54 History mcg (2,000 unit) capsule furosemide 40 mg tablet (Lasix) 40 mg PO BID water pill 09/19/20 07/04/21 05:52 History esomeprazole magnesium 40 mg 40 mg PO DAILY reflux 10/13/20 01/09/24 History capsule,delayed release (Nexium) potassium chloride 20 mEq 20 meq PO BID supplement 10/13/20 01/09/24 History tablet,extended release(part/cryst) ferrous sulfate 325 mg (65 mg 325 mg PO DAILY anemia 06/26/21 01/09/24 History iron) tablet acetaminophen 500 mg tablet 1,000 mg (2 x 500 mg) PO Q8 PRN 07/14/21 01/09/24 Rx pain of temp > 101 #0 tabs albuterol sulfate 2.5 mg/3 mL 2.5 mg (3 mL) inhalation Q4H PRN 05/17/22 Unknown Rx (0.083 %) solution for nebulization breathing #180 vials ipratropium bromide 42 mcg (0.06 2 spray intranasal TID PRN DRY NOSE 03/10/23 Unknown History %) nasal spray latanoprost 0.005 % eye drops 1 drp ophthalmic (eye) QPM 03/10/23 Unknown History albuterol sulfate 90 mcg/actuation 2 puff inhalation Q4H PRN 09/14/23 Unknown Rx aerosol inhaler (Ventolin HFA) shortness of breath or wheezing #3 ea semaglutide (weight loss) 0.5 1 mg subcut QWEEK 09/28/23 Unknown History mg/0.5 mL subcutaneous pen injector apixaban 5 mg tablet (Eliquis) 5 mg PO BID anticoagulant #180 tabs 11/29/23 01/08/24 Rx atorvastatin 10 mg tablet 10 mg PO QHS cholesterol #90 tabs 11/29/23 Unknown Rx diltiazem HCl 180 mg 180 mg PO DAILY heart #90 caps 11/29/23 01/09/24 Rx capsule,extended release 24 hr (Cardizem CD) montelukast 10 mg tablet 10 mg PO QHS asthma #90 tabs 11/29/23 Unknown Rx (Singulair) fluticasone propionate 230 2 puff inhalation BID lungs #3 ea 12/07/23 Unknown Rx mcg-salmeterol 21 mcg/actuation HFA inhaler (Advair HFA) sucralfate 1 gram tablet (Carafate) 1 g PO BID PRN reflux #14 tabs 01/24/24 Unknown Rx Lactobacillus acidophilus 10 mg PO DAILY probitic 01/26/24 Unknown History Allergy/AdvReac Type Severity Reaction Status Date / Time chlorhexidine (From Allergy Severe Hives Verified 01/26/24 17:01 ChloraPrep Clear) isopropyl alcohol (From Allergy Severe Hives Verified 01/26/24 17:01 ChloraPrep Clear) adhesive Allergy SKIN Verified 01/26/24 17:01 TEARS. PAPER TAPE [place] azithromycin (From Zithromax) Allergy Rash Verified 01/26/24 17:01 cefuroxime sodium (From Allergy Rash Verified 01/26/24 17:01 Zinacef) clindamycin Allergy Hives Verified 01/26/24 17:01 Sulfa (Sulfonamide Allergy Rash Verified 01/26/24 17:01 Antibiotics) atenolol AdvReac Severe Peripheal Verified 01/26/24 17:01 edema & cough metoprolol (From Toprol XL) AdvReac Severe Peripheral Verified 01/26/24 17:01 edema & cough duloxetine (From Cymbalta) AdvReac Intermediate made me Verified 01/26/24 17:01 feel really sick nitrofurantoin AdvReac Mild unknown Verified 01/26/24 17:01 macrocrystalline (From Macrodantin) Corticosteroids AdvReac Other Verified 01/26/24 17:01 (Glucocorticoids) oxycodone HCl (From Percocet) AdvReac Vomiting Verified 01/26/24 17:01 Family History Mother Hypertension Diabetes Heart disease Pulmonary embolism Father Perforated ulcer Respiratory failure Sister Asthma Hypertension Surgical History History of total left hip replacement Status post total hip replacement, left Status post hip replacement S/P hip replacement Hx of vein stripping S/P hysterectomy History of appendectomy History of cardioversion (~12/2016) History of left heart catheterization H/O hernia repair H/O foot surgery H/O shoulder surgery H/O section H/O: hysterectomy Social History household members: none Smoking Status: Former smoker quit date: 02/14/75 pack-years: 3 second hand exposure: No alcohol intake: never substance use type: does not use caffeine: No what type of physical activity do you participate in: none EXAM Physical Exam Const Vital Signs: 01/26/24 16:58 01/26/24 19:00 01/26/24 20:05 Temperature 97.7 F L 98.6 F Temperature Source Oral Pulse Rate 88 59 L 74 Respiratory Rate 16 18 15 Blood Pressure 183/77 H 132/75 H 133/80 H Blood Pressure Mean 112 94 97 Pulse Ox 98 96 97 Oxygen Delivery Method Room Air Room Air MDM MDM MDM Narrative Medical decision making narrative: 69-year-old female with history of proximal atrial fibrillation on Eliquis, obesity, venous insufficiency, CKD, DM presents for evaluation of right foot pain. Differential diagnosis includes but is not limited to cellulitis, osteomyelitis, DVT, bacteremia. Morphine, Zofran ordered for symptoms. Inflammatory/infectious labs ordered. X-ray of the right foot and venous Doppler ultrasound ordered. CBC with mild leukocytosis of 15.8 however this is downtrending from 01/23. No anemia. ESR elevated at 75. CRP pending. BMP shows baseline renal insufficiency. Venous duplex ultrasound negative for DVT. X-ray of the foot was personally interpreted and reviewed by myself. No fracture. No subcutaneous air. Suspect patient's symptoms are secondary to cellulitis. Given that she has had history of MRSA as well as Pseudomonas we will treat empirically with Zosyn and vancomycin. Patient was updated of all the results and confirmed understand the plan. Patient warrant admission. Patient admitted by hospitalist. I did reach out to vascular surgery, they will see the patient in consult. Impression: 1. Right foot cellulitis 2. Renal insufficiency Lab Data Labs: Laboratory Results - last 24 hr 01/26/24 17:40 WBC 12.8 H RBC 4.29 Hgb 12.8 Hct 41.0 MCV 95.6 MCH 29.8 MCHC 31.2 L RDW Std Deviation 52.5 H RDW Coeff of Lanre 15.0 H Plt Count 326 MPV 11.1 Immature Gran % (Auto) 0.500 Neut % (Auto) 79.4 H Lymph % (Auto) 10.9 L [place] % (Auto) 7.9 Eos % (Auto) 1.1 Baso % (Auto) 0.2 Absolute Neuts (auto) 10.2 H Absolute Lymphs (auto) 1.40 Nucleated RBC % 0 ESR 75 H Sodium 140 Potassium 4.1 Chloride 108 H Carbon Dioxide 27.0 Anion Gap 6 BUN 24 H Creatinine 1.83 H Estim Creat Clear Calc 29.91 Est GFR (MDRD) Af Amer 35 L Est GFR (MDRD) Non-Af 29 L BUN/Creatinine Ratio 13.1 Glucose 112 H Calcium 9.9 Procalcitonin 0.33 H Radiography Diagnostic Testing: Clinical Impression(s) from Imaging Studies Venous Duplex 01/26/24 17:41 IMPRESSION: Normal venous Doppler ultrasound of the lower extremity. Electronically Signed: Tavo Barrios MD at 19:43 EST Reading Location ID and State: [facility] / [place] , Service support , Foot X-Ray 01/26/24 17:48 IMPRESSION: Degenerative and postoperative change. Electronically Signed: Tavo Barrios MD at 19:14 EST , Discharge Plan Disposition Disposition: Acute Care Hospital [facility] Discharge Date/Time: 01/26/24 21:02
--- NOTE | 2024-01-26 17:48 | RAD_ITS ---
STUDY: X-RAY - RIGHT FOOT CLINICAL: Female, 69 years old. Pain TECHNIQUE: 3 view(s) of the foot. COMPARISON: None. FINDINGS: There is a plantar spur of the calcaneus. There are postoperative changes with hardware fusing the talonavicular articulation and the first tarsometatarsal articulation. There is severe joint space narrowing and moderate spurring of the naviculocuneiform articulations. There is demineralization of the metatarsi. There is degenerative arthrosis of the metatarsophalangeal joint of the hallux . Normal tibial and fibular sesamoid bones. Normal interphalangeal joint of the great toe. Normal phalanges of the great toe. Normal second through fifth metatarsophalangeal joints. There is Hammer toe deformity of the second through fifth toes. The soft tissue structures are unremarkable. There is no demonstrated fracture. RAD/Foot min 3 Views IMPRESSION: Degenerative and postoperative change. Electronically Signed: Tavo Barrios MD at 19:14 EST ,
[2024-01-26 17:53] LABS: Absolute Neutrophil Count 10.2 X10^3/uL (2.0-7.7); Basophil# 0.03 X10^3/uL; Basophil% 0.2 % (0-1); Eosinophil# 0.14 X10^3/uL; Eosinophils% 1.1 % (0-5); Hemoglobin 12.8 g/dL (12.0-15.0); Lymphocyte % 10.9 % (19-41); Mean Corp Hgb Conc 31.2 g/dL (32-36); Mean Corpuscular Hgb 29.8 pg (27.0-32.0); Mean Corpuscular Volume 95.6 fL (81-99); Mean Platelet Vol. 11.1 fl (6.2-12.0); Monocyte# 1.01 X10^3/uL; Monocyte% 7.9 % (0-10); NRBC Flagged by Analyzer 0 % (0-5); Neutrophil # 10.19 X10^3/uL (2.7-7.7); Neutrophil % 79.4 % (47-70); Platelet Count 326 K/mm3 (150-450); RBC Distribution Width SD 52.5 fl (35.1-43.9); Red Blood Count 4.29 M/mm3 (4.2-5.4); White Blood Count 12.8 K/mm3 (4.4-11.0)
[2024-01-26 17:58] LABS: Erythrocyte Sedimentation Rate 75 mm/hr (0-30)
[2024-01-26 18:09] LABS: Anion Gap 6 (5-15); BUN 24 mg/dL (7-18); BUN/Creat Ratio 13.1 RATIO (10-20); Calcium,Total 9.9 mg/dL (8.5-10.1); Chloride 108 mmol/L (98-107); Creatinine, Serum 1.83 mg/dL (0.55-1.02); EST Glomerular Filtration Rate 29 mL/min (>60); Est Glom Filt Rate - Afr Amer 35 mL/min (>60); Estimated Creatinine Clearance 29.91 ml/min; Glucose 112 mg/dL (74-106); Potassium 4.1 mmol/L (3.5-5.1); Sodium Level 140 mmol/L (136-145)
[2024-01-26 19:00] VITALS: BP 132/75; PULSE 59; RESP 18; O2SAT 96
[2024-01-26] MEDS: Piperacil/Tazobactam 4.5 GM in 0.9% Normal Saline (100mL MB+) 100 ML IV (20:00)
[2024-01-26 20:05] VITALS: BP 133/80; PULSE 74; RESP 15; TEMP 37; O2SAT 97
--- NOTE | 2024-01-26 20:13 | HP.PCM.HOS_ITS ---
HPI - General General Date of Admission: 01/26/24 Date of Service: 01/26/24 Chief Complaint: RLE pain, redness. HPI Narrative The patient is a 69 y/o F w/ PMHx: Former tobacco use, Venous stasis disease, Asthma/COPD w/ Allergic rhinitis w/ Hx Bronchiectasis, HTN, HLD, HFpEF, Chronic anemia/Fe Deficiency, Chronic anemia, Diabetes mellitus type II w/ chronic neuropathy, Anxiety and Depression, PAF, GAGAN, Hx MRSA lung infections, Hx VTE (Hx DVT/PE), Chronic tremors, Hypothyroidism who presents to the [facility] ED on 01/26/2024 with right foot pain status post recent right lower extremity weather strip mechanic vein ablation with unfortunately following this development of vasculitis placed on high-dose steroids however she did finish these with improvement although she did have unfortunately some GI side effects but over the last 4 days she has been having worsening pain in the right foot in addition to decreased mobility unfortunately missing her vascular office visit today with difficulty even ambulating in her house with onset of redness and swelling to the right foot with mild pain in the calf as well with no fevers or chills or paresthesias prompting ED evaluation. Per review of records patient with 01/09/2024 right lower extremity weather strip mechanic vein ablation per Dr. Higuera secondary to history of venous insufficiency with ulceration of the medial ankle with follow-up in the wound care center most recently on 01/17/2024 for nonpressure chronic ulcer of the right ankle with the right ankle noted to be healed at that time with recommendation for daily compression, exercise and elevation for edema management with usage of 20 to 30 mm gradient compression stockings, ED evaluation 01/24/2024 with at that time cough and malaise ongoing for approximately 5 days noted to be nonproductive with nausea with poor oral intake however this was following her recent procedure with ablation of the right lower extremity following which she developed vasculitis and was started on high-dose steroids with no fevers or chills prompting ED evaluation. Per records patient with 01/05/2024 respiratory culture with Pseudomonas and Staphylococcus aureus as well as recent 01/07/2024 urine culture greater than 100,000 with Klebsiella which she reports was recently treated with doxycycline however there was some discussion about PICC line for IV antibiotics but declined this with issues ongoing reportedly since March. She has been following with infectious disease Dr. Orta. She notes that the pain is 10 out of 10 especially with activity attempts or even trying to walk on it. It has been more warm and also swollen. She does state that she has a chronic mildly productive cough. Workup in the ED included T97.7, heart rate 88, BP 183/77, respiratory rate 16, 98% on room air with most recent repeat vitals heart rate 59, BP 132/75, respiratory rate 18, 96% on room air, CBC with WBC 12.8, human 12.8, platelet 326 with left shift, ESR 75, CRP pending upon request evaluation of patient, BMP with chloride 108, BUN/creatinine 24/1.3, GFR 29, glucose 112, plain film of the right foot with degenerative and postoperative change, normal-appearing duplex of the right lower extremity, blood culture x 2 pending per ED. In the ED patient ministered IV vancomycin, IV Zosyn, Zofran 4 mg IV x 1, morphine 4 mg IV x 1. ED discussed case with Dr. Higuera. [facility] Medical History Necrosis Venous ulcer Essential hypertension Hyperlipidemia Asthma Iron deficiency anemia Vitamin D deficiency Chronic diastolic congestive heart failure Hypothyroidism Allergic rhinitis Gastroesophageal reflux disease History of COPD History of diabetes mellitus Atrial fibrillation Hypertension Easy bruising History of stress test History of echocardiogram Cardiology follow-up encounter Wears glasses Anxiety Diabetes Walker as ambulation aid History of renal disease Anemia Migraine headache Back pain Injury of back Shortness of breath on exertion History of edema Pain of left hip Bronchiectasis with (acute) exacerbation High cholesterol Hypothyroidism Kidney disease Former smoker Congestive heart failure (CHF) Hypertension Hypoxemia Bronchiectasis Pneumonia due to Pseudomonas Cough Palpitations Paroxysmal atrial fibrillation Chronic diastolic heart failure GAGAN (obstructive sleep apnea) Septic shock 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 COPD with acute exacerbation Lung nodule Thrush, oral History of DVT (deep vein thrombosis) Abnormal chest CT Shortness of breath Cavitary lesion of lung Aspiration into airway Obesity Chronic respiratory failure Precordial chest pain Paroxysmal atrial tachycardia Right foot pain MRSA pneumonia Venous thromboembolism (VTE) Hyperlipidemia Diabetes mellitus HCAP (healthcare-associated pneumonia) Severe sepsis Coarse tremors Weakness Acute respiratory failure DVT (deep venous thrombosis) Pulmonary embolism Allergic rhinitis Insomnia Steroid myopathy Atrial fibrillation with rapid ventricular response Pneumonia ALEXYS (acute kidney injury) PVD (peripheral vascular disease) Atrial tachycardia Morbid obesity Acute bronchiolitis Tachycardia Hx pulmonary embolism Cellulitis of right lower extremity Umbilical hernia Gastroesophageal reflux disease COLD (chronic obstructive lung disease) Benign essential HTN Home Medications ?Medication ?Instructions ?Recorded ?Last Taken ?Type levothyroxine 25 mcg tablet 25 mcg PO DAILY@0600 thyroid 01/04/20 01/09/24 History famotidine 40 mg tablet 40 mg PO QHS reflux 04/02/20 07/03/21 23:04 History cholecalciferol (vitamin D3) 50 50 mcg PO DAILY SUPPLEMENT 09/19/20 07/04/21 05:54 History mcg (2,000 unit) capsule furosemide 40 mg tablet (Lasix) 40 mg PO BID water pill 09/19/20 07/04/21 05:52 History esomeprazole magnesium 40 mg 40 mg PO DAILY reflux 10/13/20 01/09/24 History capsule,delayed release (Nexium) potassium chloride 20 mEq 20 meq PO BID supplement 10/13/20 01/09/24 History tablet,extended release(part/cryst) ferrous sulfate 325 mg (65 mg 325 mg PO DAILY anemia 06/26/21 01/09/24 History iron) tablet acetaminophen 500 mg tablet 1,000 mg (2 x 500 mg) PO Q8 PRN 07/14/21 01/09/24 Rx pain of temp > 101 #0 tabs albuterol sulfate 2.5 mg/3 mL 2.5 mg (3 mL) inhalation Q4H PRN 05/17/22 Unknown Rx (0.083 %) solution for nebulization breathing #180 vials ipratropium bromide 42 mcg (0.06 2 spray intranasal TID PRN DRY NOSE 03/10/23 Unknown History %) nasal spray latanoprost 0.005 % eye drops 1 drp ophthalmic (eye) QPM 03/10/23 Unknown History albuterol sulfate 90 mcg/actuation 2 puff inhalation Q4H PRN 09/14/23 Unknown Rx aerosol inhaler (Ventolin HFA) shortness of breath or wheezing #3 ea semaglutide (weight loss) 0.5 1 mg subcut QWEEK 09/28/23 Unknown History mg/0.5 mL subcutaneous pen injector apixaban 5 mg tablet (Eliquis) 5 mg PO BID anticoagulant #180 tabs 11/29/23 01/08/24 Rx atorvastatin 10 mg tablet 10 mg PO QHS cholesterol #90 tabs 11/29/23 Unknown Rx diltiazem HCl 180 mg 180 mg PO DAILY heart #90 caps 11/29/23 01/09/24 Rx capsule,extended release 24 hr (Cardizem CD) montelukast 10 mg tablet 10 mg PO QHS asthma #90 tabs 11/29/23 Unknown Rx (Singulair) fluticasone propionate 230 2 puff inhalation BID lungs #3 ea 12/07/23 Unknown Rx mcg-salmeterol 21 mcg/actuation HFA inhaler (Advair HFA) sucralfate 1 gram tablet (Carafate) 1 g PO BID PRN reflux #14 tabs 01/24/24 Unknown Rx Lactobacillus acidophilus 10 mg PO DAILY 01/26/24 Unknown History Allergy/AdvReac Type Severity Reaction Status Date / Time chlorhexidine (From Allergy Severe Hives Verified 01/26/24 17:01 ChloraPrep Clear) isopropyl alcohol (From Allergy Severe Hives Verified 01/26/24 17:01 ChloraPrep Clear) adhesive Allergy SKIN Verified 01/26/24 17:01 TEARS. PAPER TAPE OK azithromycin (From Zithromax) Allergy Rash Verified 01/26/24 17:01 cefuroxime sodium (From Allergy Rash Verified 01/26/24 17:01 Zinacef) clindamycin Allergy Hives Verified 01/26/24 17:01 Sulfa (Sulfonamide Allergy Rash Verified 01/26/24 17:01 Antibiotics) atenolol AdvReac Severe Peripheal Verified 01/26/24 17:01 edema & cough metoprolol (From Toprol XL) AdvReac Severe Peripheral Verified 01/26/24 17:01 edema & cough duloxetine (From Cymbalta) AdvReac Intermediate made me Verified 01/26/24 17:01 feel really sick nitrofurantoin AdvReac Mild unknown Verified 01/26/24 17:01 macrocrystalline (From Macrodantin) Corticosteroids AdvReac Other Verified 01/26/24 17:01 (Glucocorticoids) oxycodone HCl (From Percocet) AdvReac Vomiting Verified 01/26/24 17:01 Family History Mother Hypertension Diabetes Heart disease Pulmonary embolism Father Perforated ulcer Respiratory failure Sister Asthma Hypertension Surgical History History of total left hip replacement Status post total hip replacement, left Status post hip replacement S/P hip replacement Hx of vein stripping S/P hysterectomy History of appendectomy History of cardioversion (~12/2016) History of left heart catheterization H/O hernia repair H/O foot surgery H/O shoulder surgery H/O section H/O: hysterectomy Social History household members: none Smoking Status: Former smoker quit date: 02/14/75 pack-years: 3 second hand exposure: No alcohol intake: never substance use type: does not use caffeine: No what type of physical activity do you participate in: none ROS ROS Narrative Admission Review of Systems: CONSTITUTIONAL: No weight loss, fever, chills, + weakness, fatigue. HEENT: Eyes: No visual loss, blurred vision, double vision or yellow sclerae. Ears, Nose, Throat: No hearing loss, sneezing, congestion, runny nose or sore throat. SKIN: No rash or itching, lesions, wounds except + bilateral lower extremity chronic stasis disease, occasional stage ecchymoses, abrasion as well as right lower extremity with increased warmth, redness and swelling. CARDIOVASCULAR: No chest pain, chest pressure or chest discomfort, palpitations, edema, orthopnea, syncopal events. RESPIRATORY: + Chronic cough, occasionally productive, chronic dyspnea worse with exertion, occasional wheezing. No hemoptysis. GASTROINTESTINAL: + Recent history of dyspepsia with nausea, abdominal discomfort but improved upon current evaluation. No anorexia, diarrhea, melena, BRBPR. GENITOURINARY: No dysuria, frequency, urgency or retention. NEUROLOGICAL: No headache, dizziness, syncope, paralysis, ataxia, numbness or tingling in the extremities, focal weakness, change in bowel or bladder control, seizure. MUSCULOSKELETAL: + muscle, back pain, joint pain or stiffness. HEMATOLOGIC: + Chronic anemia, easy bleeding/bruising LYMPHATICS: No enlarged nodes. No history of splenectomy. PSYCHIATRIC: + History of anxiety and depression. ENDOCRINOLOGIC: No reports of sweating, cold or heat intolerance. No polyuria or polydipsia. ALLERGIES: + History of asthma, hives, allergic rhinitis. Vital Signs Vital Signs Vital Signs: 01/26/24 16:58 01/26/24 19:00 01/26/24 20:05 Temperature 97.7 F L 98.6 F Temperature Source Oral Pulse Rate 88 59 L 74 Respiratory Rate 16 18 15 Blood Pressure 183/77 H 132/75 H 133/80 H Blood Pressure Mean 112 94 97 Pulse Ox 98 96 97 Oxygen Delivery Method Room Air Room Air Weight Weight: 207 lb 0.225 oz Body Mass Index (BMI) 39.1 Physical Exam Narrative Physical Examination: General: Awake, alert, oriented x 3 and cooperative, seated upright in the ED bed, fatigued, notes pain improved currently rating it 3-4 out of 10 in severity after ED interventions. Skin: Normal color, normal turgor, no icterus, no cyanosis except for bilateral lower extremity mild venous stasis skin changes, occasional stage ecchymoses, abrasion, right lower extremity with erythema on the dorsal aspect of the foot and ankle, increased warmth to touch, mild swelling compared to the other foot, pain to palpation. HEENT: AT/NC, EOMI, PERRLA, MMM, no carotid bruits or JVD noted. Lungs: Diminished, greater bases, occasional coughing during evaluation with no sputum production at that time, no markedly noted rales, ronchi or wheezing. Heart: Regular rate and rhythm; no gallop, rub audible. Abdomen: Soft, obese, NTTP, ND, normal BS, no appreciated HSM. Extremities: No cyanosis, no clubbing, see skin. Neurological: Patient awake, alert, oriented as noted, cognitive function intact; pupils equally reactive to light and accommodation, cranial nerves grossly normal, moving all 4 extremities, no focal deficits, strength moderately to severely globally decreased secondary to underlying comorbidities and acute presentation complaints Psychiatric: Affect appears flat, fatigued, no acute evidence of depressive or anxiety feelings but does have underlying history. Results Lab / Micro Data 01/26/24 17:40 01/26/24 17:40 Labs: Laboratory Results - last 24 hr 01/26/24 17:40: WBC 12.8 H, RBC 4.29, Hgb 12.8, Hct 41.0, MCV 95.6, MCH 29.8, M CHC 31.2 L, RDW Std Deviation 52.5 H, RDW Coeff of Lanre 15.0 H, Plt Count 326, MPV 11.1, Immature Gran % (Auto) 0.500, Neut % (Auto) 79.4 H, Lymph % (Auto) 10.9 L, [place] % (Auto) 7.9, Eos % (Auto) 1.1, Baso % (Auto) 0.2, Absolute Neuts (auto) 10.2 H, Absolute Lymphs (auto) 1.40, Nucleated RBC % 0, ESR 75 H, Sodium 140, Potassium 4.1, Chloride 108 H, Carbon Dioxide 27.0, Anion Gap 6, BUN 24 H, Creatinine 1.83 H, Estim Creat Clear Calc 29.91, Est GFR (MDRD) Af Amer 35 L, E st GFR (MDRD) Non-Af 29 L, BUN/Creatinine Ratio 13.1, Glucose 112 H, Calcium 9.9 Imaging Radiology Impression Venous Duplex 01/26/24 17:41 IMPRESSION: Normal venous Doppler ultrasound of the lower extremity. Electronically Signed: Tavo Barrios MD at 19:43 EST , Foot X-Ray 01/26/24 17:48 IMPRESSION: Degenerative and postoperative change. Electronically Signed: Tavo Barrios MD at 19:14 EST , Assessment & Plan Assessment/Plan (1) Cellulitis: PLAN: Plan The patient is a 69 y/o F w/ PMHx: Former tobacco use, Venous stasis disease, Asthma/COPD w/ Allergic rhinitis w/ Hx Bronchiectasis, HTN, HLD, HFpEF, Chronic anemia/Fe Deficiency, Chronic anemia, Diabetes mellitus type II w/ chronic neuropathy, Anxiety and Depression, PAF, GAGAN, Hx MRSA lung infections, Hx VTE (Hx DVT/PE), Chronic tremors, Hypothyroidism who presents to the [facility] ED on 01/26/2024 with right foot pain status post recent right lower extremity weather strip mechanic vein ablation with unfortunately following this development of vasculitis placed on high-dose steroids however she did finish these with improvement although she did have unfortunately some GI side effects but over the last 4 days she has been having worsening pain in the right foot in addition to decreased mobility unfortunately missing her vascular office visit today with difficulty even ambulating in her house with onset of redness and swelling to the right foot with mild pain in the calf as well with no fevers or chills or paresthesias prompting ED evaluation. #1. RLE Cellulitis complicated by Ablation and following this also recent Vasculitis: Will admit to [facility], maintain on IV BSA with vancomycin and Zosyn given history of Pseudomonas and MRSA infections, will request infectious disease involvement as she has been closely following with him, will continue ED initiated consultation with vascular surgery given recent intervention history complicated by vasculitis following, plan repeat CBC in AM, continue affected extremity elevation above heart when seated and in bed, monitor erythema outline with VS checks, PT/OT/case management consulted for discharge planning. #2. Asthma/Chronic COPD with allergic rhinitis with history of bronchiectasis and previous MRSA lung infections: Will temporarily hold home inhalers in the interim transition to ATC budesonide therapy, PRN albuterol, HOB, IS parameters home regimen, continue patient home Singulair. 01/05/2024 sputum culture with Pseudomonas and Staphylococcus aureus following with infectious disease. Patient had been on recent 10-day course of doxycycline which she completed. Per patient discussion she reports having another infection but from review of cultures the last 1 pulmonary lozano noted was above-mentioned. Infectious disease is consulted given #1. #3. Diabetes mellitus type II with chronic neuropathy: Hold oral home regimen, ADA diet, accu checks w/ ISS, continue patient home gabapentin regimen. #4. PAF: We will continue patient home diltiazem and Eliquis home regimen. #5. Chronic normocytic anemia/iron deficiency anemia: Admission hemoglobin 12.8, MCV 95.6, baseline hemoglobin primarily 10-11 however most recently prior 01/24/2024 hemoglobin noted to be 13.2, possibly mildly falsely elevated, will continue to trend CBC, continue iron supplementation. #6. Anxiety and depression: Noted in history, not currently on any regimen per list but clarifying, encourage continued outpatient follow-up and evaluation as needed. #7. Hypertension: Continue home regimen including Lasix, diltiazem, PRN hydralazine. #8. Hyperlipidemia: We will continue patient on statin therapy. #9. History VTE: Patient status post DVT, PE, we will continue patient on Eliquis regimen. #10. Hypothyroidism: We will continue patient on levothyroxine regimen. #11. HFpEF: Most recent echocardiogram noted 04/09/2021 with LV systolic function normal, EF is 65%, trivial TVI, diastolic function indeterminate. Will continue patient home Eliquis, statin, Lasix regimen, not on beta-meghan with allergy noted and per current record does not appear to be on JOSE inhibitor/ARB. #12. Chronic Kidney Disease Stage III unclear subtype per GFR trending: Admission BUN/Cr 24/1.3, GFR 29, baseline renal function primarily 1.3-1.5, most recently prior to this 01/24/2024 creatinine 1.58, repeat BMP in AM. #13. Obesity: Weight loss and lifestyle changes encouraged. #14. GERD: We will continue patient home PPI and sucralfate especially given recent GI symptoms/dyspepsia with recent steroid regimen. #15. GAGAN: Because of her ongoing pulmonary issues with lung infections per infectious disease she has not been using PAP therapy. #16. Former tobacco use: Encourage continued tobacco cessation. #17. DVT prophylaxis: Continue patient home Eliquis regimen. #18. CODE status: Patient DEV is her sister and living will is currently in place. Discussed CODE status at length including difference between FULL code, DNR-CCA and DNR-CC status. Following discussions about the differences in these status, requested Full Code status. Advanced Care Planning Face to Face Time: 16 minutes. Charges/Coding Visit Charges Inpatient E&M: 58715 Init Hosp L3 Procedures Hospitalists Procedures: 89972 Advncd Care Plan 30 Min
[2024-01-26] MEDS: Vancomycin HCl 2,000 MG in 0.9% Normal Saline (500mL Bag) 500 ML 250 MG IV (20:52)
[2024-01-26 21:00] LABS: Procalcitonin 0.33 ng/mL (0.00-0.09)
[2024-01-26 21:17] VITALS: BMI 36.6
[2024-01-26 21:23] VITALS: BP 133/84; PULSE 87; RESP 17; TEMP 36.8; O2SAT 99
--- NOTE | 2024-01-26 21:33 | PCM.RX.CS ---
Consult Antibiotic Management Pharmacy has been consulted to manage selected antibiotic: Vancomycin Type of Intervention Type of Consult: New start Labs Labs: Sodium 140 mmol/L (136-145) 01/26/24 17:40 Potassium 4.1 mmol/L (3.5-5.1) 01/26/24 17:40 Chloride 108 mmol/L (98-107) H 01/26/24 17:40 Carbon Dioxide 27.0 mmol/L (21.0-32.0) 01/26/24 17:40 Anion Gap 6 (5-15) 01/26/24 17:40 BUN 24 mg/dL (7-18) H 01/26/24 17:40 Creatinine 1.83 mg/dL (0.55-1.02) H 01/26/24 17:40 Est GFR (MDRD) Af Amer 35 mL/min (>60) L 01/26/24 17:40 Est GFR (MDRD) Non-Af 29 mL/min (>60) L 01/26/24 17:40 BUN/Creatinine Ratio 13.1 RATIO (10-20) 01/26/24 17:40 Glucose 112 mg/dL (74-106) H 01/26/24 17:40 Dosing Weight Weight used for dosin.1 kg Estimated Creatinine Clearance Estimated Creatinine Clearance: 29.91 Goal Trough Goal Trough: 15-20 mcg/mL Pharmacy Plan for Drug Dosing Pharmacy Plan for Drug Dosing: Pharmacy Service will continue to monitor and adjust dosing as required. 2000MG GIVEN IN ER 01/25 @ 2051. START 1000MG Q24H AND DRAW TROUGH PRIOR TO 3RD DOSE Follow-Up Labs Follow-Up Labs: Trough: Vancomycin Date/Time Labs Ordered Labs to be done on [date and time ordered]: 01/27 @ 2029
[2024-01-26] MEDS: Potassium Chloride Oral Tablet 20 MEQ PO (22:11)
[2024-01-26] MEDS: Latanoprost 0.005% 1 Bottle 1 DRP EACH EYE (22:12)
[2024-01-26] MEDS: Montelukast 10 MG Tablet PO (22:12)
[2024-01-26] MEDS: Atorvastatin Calcium 10 MG Tablet PO (22:12)
[2024-01-26] MEDS: Famotidine 20 MG Tablet 40 MG PO (22:12)
[2024-01-26] MEDS: APIXABAN 5 MG TABLET PO (22:12)
[2024-01-26] MEDS: Acetaminophen 325 MG Tablet 650 MG PO (22:22)
[2024-01-26 23:09] LABS: Bedside Glucose 80 mg/dL (74-106)
[2024-01-27] VITALS (8 sets, daily range): BP systolic 108–142; BP diastolic 47–68; PULSE 73–91; RESP 12–18; TEMP 36.6–37.1; O2SAT 94–98; BMI 37.5
[2024-01-27] MEDS: Levothyroxine 25 MCG TABLET PO (05:51)
[2024-01-27] MEDS: Piperacil/Tazobactam 3.375 GM in 0.9% Normal Saline (50mL MB+) 50 ML IV ×3 (05:51→22:23)
[2024-01-27] MEDS: 0.9% Normal Saline (100mL Bag) 100 ML 15 ML IV (05:52)
[2024-01-27] MEDS: 0.9% Saline Lock 10 ML Syringe IV ×2 (05:53→09:52)
[2024-01-27 06:18] LABS: Bedside Glucose 126 mg/dL (74-106)
--- NOTE | 2024-01-27 07:30 | PN.HOSP_ITS ---
Reason for Visit Reason for Visit: Diagnoses Cellulitis, unspecified (01/26/24) Subjective Subjective still on right foot. erythema resolved. Objective Data Objective Data Vital Signs: Vital Signs Temp Pulse Resp BP Pulse Ox O2 Del Method 37.1 C 73 16 108/47 L 96 Room Air 01/27/24 05:48 01/27/24 05:48 01/27/24 05:48 01/27/24 05:48 01/27/24 05:48 01/27/24 06:02 Oxygen Delivery Method Room Air Weight: 90.2 kg Body Mass Index (BMI) 37.5 Intake & Output: Intake and Output for Last 24 Hours 01/25/24 01/26/24 01/27/24 23:59 23:59 23:59 Intake Total 840 / 840 200.25 / 200.25 Balance 840 / 840 200.25 / 200.25 Lab / Micro Data 01/27/24 06:08 01/27/24 06:08 Labs: Laboratory Results - last 24 hr 01/26/24 17:40: WBC 12.8 H, RBC 4.29, Hgb 12.8, Hct 41.0, MCV 95.6, MCH 29.8, M CHC 31.2 L, RDW Std Deviation 52.5 H, RDW Coeff of Lanre 15.0 H, Plt Count 326, MPV 11.1, Immature Gran % (Auto) 0.500, Neut % (Auto) 79.4 H, Lymph % (Auto) 10.9 L, [place] % (Auto) 7.9, Eos % (Auto) 1.1, Baso % (Auto) 0.2, Absolute Neuts (auto) 10.2 H, Absolute Lymphs (auto) 1.40, Nucleated RBC % 0, ESR 75 H, Sodium 140, Potassium 4.1, Chloride 108 H, Carbon Dioxide 27.0, Anion Gap 6, BUN 24 H, Creatinine 1.83 H, Estim Creat Clear Calc 29.91, Est GFR (MDRD) Af Amer 35 L, E st GFR (MDRD) Non-Af 29 L, BUN/Creatinine Ratio 13.1, Glucose 112 H, Calcium 9.9, Procalcitonin 0.33 H 01/26/24 22:09: POC Glucose 80 01/27/24 05:56: POC Glucose 126 H Radiography Diagnostic Testing: Radiology Impression Venous Duplex 01/26/24 17:41 IMPRESSION: Normal venous Doppler ultrasound of the lower extremity. Electronically Signed: Tavo Barrios MD at 19:43 EST , Foot X-Ray 01/26/24 17:48 IMPRESSION: Degenerative and postoperative change. Electronically Signed: Tavo Barrios MD at 19:14 EST , Physical Exam Const alert and no apparent distress HEENT head/scalp atraumatic and moist oral mucous membranes Resp normal respiratory effort and no retractions Extremity Extremity Narrative: RLE w/o erythema. line of demarcation noted around ankle. TTP on dorsum and plant aspect of right foot. No 1st right MTP tenderness. Neuro Sensorium / Orientation: awake and alert Assessment & Plan Assessment/Plan (1) Cellulitis: PLAN: Plan RLE Cellulitis * Abx pip/tazo and vanc * Elevated RLE. * Duplex LE negative. Foot xray negative. * ID consult * Vascular consult given recent RLE allergist/pediatric pulmonologist vein ablation on 01/08. Does not appear to be confluent with the surgical site. Chronic conditions: * Asthma/Chronic COPD with allergic rhinitis with history of bronchiectasis and previous MRSA lung infections: Currently stable. * Diabetes mellitus type II with chronic neuropathy: Hold oral home regimen, ADA diet, accu checks w/ ISS, continue patient home gabapentin regimen. Currently stable. * PAF: We will continue patient home diltiazem and apixaban * Chronic normocytic anemia/iron deficiency anemia: stable * Hypertension: Continue home regimen including Lasix, diltiazem, PRN hydralazine. * Hyperlipidemia: atorvastatin * History VTE: Patient status post DVT, PE, we will continue patient on Eliquis regimen. * Hypothyroidism: We will continue patient on levothyroxine regimen. * HFpEF: Most recent echocardiogram noted 04/09/2021 with LV systolic function normal, EF is 65%, trivial TVI, diastolic function indeterminate. Will continue patient home Eliquis, statin, Lasix regimen, not on beta-meghan with allergy noted and per current record does not appear to be on JOSE inhibitor/ARB. * Chronic Kidney Disease Stage III unclear subtype per GFR trending: Admission BUN/Cr 24/1.3, GFR 29, baseline renal function primarily 1.3-1.5, most recently prior to this 01/24/2024 creatinine 1.58, repeat BMP in AM. * obesity class II: complicates care and recovery * GERD: We will continue patient home PPI and sucralfate especially given recent GI symptoms/dyspepsia with recent steroid regimen. VTE prophylaxis: not indicated as already anticoagulated. Charges/Coding Visit Charges Inpatient E&M: 08902 Subs Hosp L2
[2024-01-27 07:33] LABS: Absolute Lymphocyte Count 0.37 X10^3/uL (0.83-4.51); Absolute Neutrophil Count 11.6 X10^3/uL (2.0-7.7); Basophil# 0.02 X10^3/uL; Basophil% 0.2 % (0-1); Eosinophil# 0.05 X10^3/uL; Eosinophils% 0.4 % (0-5); Hematocrit 38.9 % (37-47); Hemoglobin 11.5 g/dL (12.0-15.0); Lymphocyte # 0.37 X10^3/ul (0.83-4.51); Lymphocyte % 2.9 % (19-41); Mean Corp Hgb Conc 29.6 g/dL (32-36); Mean Platelet Vol. 11.4 fl (6.2-12.0); Monocyte# 0.61 X10^3/uL; Monocyte% 4.8 % (0-10); NRBC Flagged by Analyzer 0 % (0-5); Neutrophil # 11.55 X10^3/uL (2.7-7.7); Neutrophil % 91.1 % (47-70); POSITIVE DIFFERENTIAL YES; Platelet Count 285 K/mm3 (150-450); RBC Distribution Width CV 14.8 % (11.6-14.6); RBC Distribution Width SD 53.4 fl (35.1-43.9); Red Blood Count 3.97 M/mm3 (4.2-5.4); White Blood Count 12.7 K/mm3 (4.4-11.0)
[2024-01-27] MEDS: Budesonide Respules 0.5 MG/2 ML AMPUL.NEB. INHALATION ×2 (07:34→20:49)
[2024-01-27 08:23] LABS: ALB/GLOB Ratio 0.6 RATIO (0.9-2.4); AST(SGOT) 14 U/L (15-37); Alanine Aminotransfer ALT/SGPT 23 U/L (13-56); Albumin, Serum 2.4 g/dL (3.2-5.0); Alkaline Phosphatase 111 U/L (45-117); Anion Gap 7 (5-15); BUN 19 mg/dL (7-18); BUN/Creat Ratio 12.3 RATIO (10-20); Calcium,Total 8.9 mg/dL (8.5-10.1); Chloride 110 mmol/L (98-107); Creatinine, Serum 1.55 mg/dL (0.55-1.02); EST Glomerular Filtration Rate 35 mL/min (>60); Est Glom Filt Rate - Afr Amer 43 mL/min (>60); Estimated Creatinine Clearance 34.53 ml/min; Globulin 3.8 g/dL (2.2-4.2); Glucose 117 mg/dL (74-106); Protein, Total 6.2 g/dL (6.4-8.2); Sodium Level 140 mmol/L (136-145)
[2024-01-27] MEDS: Lactobacillis Acidophilus 1 CAP PO (09:21)
[2024-01-27] MEDS: dilTIAZem CD 180 MG Capsule PO (09:21)
[2024-01-27] MEDS: Potassium Chloride Oral Tablet 20 MEQ PO ×2 (09:21→21:00)
[2024-01-27] MEDS: Furosemide 40 MG Tablet PO ×2 (09:21→17:20)
[2024-01-27] MEDS: APIXABAN 5 MG TABLET PO ×2 (09:21→21:00)
[2024-01-27] MEDS: Ferrous Sulfate 325 MG Tablet PO (09:21)
[2024-01-27] MEDS: Pantoprazole Sodium 40 MG Tablet PO (09:22)
--- NOTE | 2024-01-27 09:39 | EX.PCM.CON.S ---
Assessment & Plan Assessment/Plan (1) Venous insufficiency (chronic) (peripheral): PLAN: She is s/p RLE crosstie inspector ablation on 01/09/24 and is well-recovered from that standpoint, access sites are well-healing with no signs of associated cellulitis there, venous wound has healed, prior rash has resolved. Do not think this is contributing to her current presentation. Plan for outpatient follow-up in the office as scheduled. HPI Consult Data Date of Consult: 01/27/24 HPI Narrative HPI Narrative: LAURA SERRANO, is a 69 F who presented to the [facility] ER last night with increased pain and redness in her R foot. She was admitted for cellulitis on IV antibiotics. She is s/p R calf crosstie inspector ablation on 01/09/24 which was performed secondary to a nonhealing venous ulceration at her R medial malleolus. 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 She was treated with a steroid taper and reports this rash did fully resolve. Her venous ulceration did heal by 01/17/24. Then over the last 4 days she developed redness and pain in her right foot. The pain progressed to wear she could not ambulate leading her to present to the ER. Her creatinine was also elevated to 2.11 at the time of her ER evaluation for the vasculitis rash; on this admission it 1.55 which appears to be her baseline. I saw her resting comfortably in bed this morning. She reports the redness and pain are already much improved today. COUNT INCLUDES THE [facility] Medical History Necrosis Venous ulcer Essential hypertension Hyperlipidemia Asthma Iron deficiency anemia Vitamin D deficiency Chronic diastolic congestive heart failure Hypothyroidism Allergic rhinitis Gastroesophageal reflux disease History of COPD History of diabetes mellitus Atrial fibrillation Hypertension Easy bruising History of stress test History of echocardiogram Cardiology follow-up encounter Wears glasses Anxiety Diabetes Walker as ambulation aid History of renal disease Anemia Migraine headache Back pain Injury of back Shortness of breath on exertion History of edema Pain of left hip Bronchiectasis with (acute) exacerbation High cholesterol Hypothyroidism Kidney disease Former smoker Congestive heart failure (CHF) Hypertension Hypoxemia Bronchiectasis Pneumonia due to Pseudomonas Cough Palpitations Paroxysmal atrial fibrillation Chronic diastolic heart failure GAGAN (obstructive sleep apnea) Septic shock 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 COPD with acute exacerbation Lung nodule Thrush, oral History of DVT (deep vein thrombosis) Abnormal chest CT Shortness of breath Cavitary lesion of lung Aspiration into airway Obesity Chronic respiratory failure Precordial chest pain Paroxysmal atrial tachycardia Right foot pain MRSA pneumonia Venous thromboembolism (VTE) Hyperlipidemia Diabetes mellitus HCAP (healthcare-associated pneumonia) Severe sepsis Coarse tremors Weakness Acute respiratory failure DVT (deep venous thrombosis) Pulmonary embolism Allergic rhinitis Insomnia Steroid myopathy Atrial fibrillation with rapid ventricular response Pneumonia ALEXYS (acute kidney injury) PVD (peripheral vascular disease) Atrial tachycardia Morbid obesity Acute bronchiolitis Tachycardia Hx pulmonary embolism Cellulitis of right lower extremity Umbilical hernia Gastroesophageal reflux disease COLD (chronic obstructive lung disease) Benign essential HTN Home Medications ?Medication ?Instructions ?Recorded ?Last Taken ?Type levothyroxine 25 mcg tablet 25 mcg PO DAILY@0600 thyroid 01/04/20 01/09/24 History famotidine 40 mg tablet 40 mg PO QHS reflux 04/02/20 07/03/21 23:04 History cholecalciferol (vitamin D3) 50 50 mcg PO DAILY SUPPLEMENT 09/19/20 07/04/21 05:54 History mcg (2,000 unit) capsule furosemide 40 mg tablet (Lasix) 40 mg PO BID water pill 09/19/20 07/04/21 05:52 History esomeprazole magnesium 40 mg 40 mg PO DAILY reflux 10/13/20 01/09/24 History capsule,delayed release (Nexium) potassium chloride 20 mEq 20 meq PO BID supplement 10/13/20 01/09/24 History tablet,extended release(part/cryst) ferrous sulfate 325 mg (65 mg 325 mg PO DAILY anemia 06/26/21 01/09/24 History iron) tablet acetaminophen 500 mg tablet 1,000 mg (2 x 500 mg) PO Q8 PRN 07/14/21 01/09/24 Rx pain of temp > 101 #0 tabs albuterol sulfate 2.5 mg/3 mL 2.5 mg (3 mL) inhalation Q4H PRN 05/17/22 Unknown Rx (0.083 %) solution for nebulization breathing #180 vials ipratropium bromide 42 mcg (0.06 2 spray intranasal TID PRN DRY NOSE 03/10/23 Unknown History %) nasal spray latanoprost 0.005 % eye drops 1 drp ophthalmic (eye) QPM 03/10/23 Unknown History albuterol sulfate 90 mcg/actuation 2 puff inhalation Q4H PRN 09/14/23 Unknown Rx aerosol inhaler (Ventolin HFA) shortness of breath or wheezing #3 ea semaglutide (weight loss) 0.5 1 mg subcut QWEEK 09/28/23 Unknown History mg/0.5 mL subcutaneous pen injector apixaban 5 mg tablet (Eliquis) 5 mg PO BID anticoagulant #180 tabs 11/29/23 01/08/24 Rx atorvastatin 10 mg tablet 10 mg PO QHS cholesterol #90 tabs 11/29/23 Unknown Rx diltiazem HCl 180 mg 180 mg PO DAILY heart #90 caps 11/29/23 01/09/24 Rx capsule,extended release 24 hr (Cardizem CD) montelukast 10 mg tablet 10 mg PO QHS asthma #90 tabs 11/29/23 Unknown Rx (Singulair) fluticasone propionate 230 2 puff inhalation BID lungs #3 ea 12/07/23 Unknown Rx mcg-salmeterol 21 mcg/actuation HFA inhaler (Advair HFA) sucralfate 1 gram tablet (Carafate) 1 g PO BID PRN reflux #14 tabs 01/24/24 Unknown Rx Lactobacillus acidophilus 10 mg PO DAILY probitic 01/26/24 Unknown History Allergy/AdvReac Type Severity Reaction Status Date / Time chlorhexidine (From Allergy Severe Hives Verified 01/26/24 17:01 ChloraPrep Clear) isopropyl alcohol (From Allergy Severe Hives Verified 01/26/24 17:01 ChloraPrep Clear) adhesive Allergy SKIN Verified 01/26/24 17:01 TEARS. PAPER TAPE OK azithromycin (From Zithromax) Allergy Rash Verified 01/26/24 17:01 cefuroxime sodium (From Allergy Rash Verified 01/26/24 17:01 Zinacef) clindamycin Allergy Hives Verified 01/26/24 17:01 Sulfa (Sulfonamide Allergy Rash Verified 01/26/24 17:01 Antibiotics) atenolol AdvReac Severe Peripheal Verified 01/26/24 17:01 edema & cough metoprolol (From Toprol XL) AdvReac Severe Peripheral Verified 01/26/24 17:01 edema & cough duloxetine (From Cymbalta) AdvReac Intermediate made me Verified 01/26/24 17:01 feel really sick nitrofurantoin AdvReac Mild unknown Verified 01/26/24 17:01 macrocrystalline (From Macrodantin) Corticosteroids AdvReac Other Verified 01/26/24 17:01 (Glucocorticoids) oxycodone HCl (From Percocet) AdvReac Vomiting Verified 01/26/24 17:01 Family History Mother Hypertension Diabetes Heart disease Pulmonary embolism Father Perforated ulcer Respiratory failure Sister Asthma Hypertension Surgical History History of total left hip replacement Status post total hip replacement, left Status post hip replacement S/P hip replacement Hx of vein stripping S/P hysterectomy History of appendectomy History of cardioversion (~12/2016) History of left heart catheterization H/O hernia repair H/O foot surgery H/O shoulder surgery H/O section H/O: hysterectomy Social History household members: none Smoking Status: Former smoker quit date: 02/14/75 pack-years: 3 second hand exposure: No alcohol intake: never substance use type: does not use caffeine: No what type of physical activity do you participate in: none Physical Exam Const alert, oriented x3 and no apparent distress General Appearance: cooperative and comfortable HEENT normocephalic, head/scalp atraumatic, hearing grossly normal bilaterally, external ears normal and external nose normal Eyes General Eye: normal appearance of both eyes Neck General: normal visual inspection Resp normal respiratory effort, no retractions and no use of accessory muscles Effort and Inspection: able to speak in complete sentences Cardio regular rate and regular rhythm Extremity Extremity Narrative: Trace edema of the right lower leg, right foot with mild swelling compared to left Skin Skin Narrative: Chronic venous stasis skin changes to the medial right lower leg. Distal puncture site on the right medial calf is well-healed. Proximal puncture site with overlying scab, appears to be well-healing, no associated erythema/focal edema/drainage/tenderness/excess warmth. R foot with outline noted, erythema seems to be improved Neuro oriented x3, CN's II-XII intact bilaterally, moves all extremities and no focal motor deficits Speech: speech normal Psych mental status grossly normal Appearance: grossly normal Attitude: calm and engaged Activity / Motor Behavior: appropriate eye contact Speech: normal speech Mood & Affect: euthymic mood Judgement: judgement good Lab / Micro Data 01/27/24 06:08 01/27/24 06:08 Labs: Laboratory Results - last 24 hr 01/26/24 17:40: WBC 12.8 H, RBC 4.29, Hgb 12.8, Hct 41.0, MCV 95.6, MCH 29.8, MCHC 31.2 L, RDW Std Deviation 52.5 H, RDW Coeff of Lanre 15.0 H, Plt Count 326, MPV 11.1, Immature Gran % (Auto) 0.500, Neut % (Auto) 79.4 H, Lymph % (Auto) 10.9 L, [place] % (Auto) 7.9, Eos % (Auto) 1.1, Baso % (Auto) 0.2, Absolute Neuts (auto) 10.2 H, Absolute Lymphs (auto) 1.40, Nucleated RBC % 0, ESR 75 H, Sodium 140, Potassium 4.1, Chloride 108 H, Carbon Dioxide 27.0, Anion Gap 6, BUN 24 H, Creatinine 1.83 H, Estim Creat Clear Calc 29.91, Est GFR (MDRD) Af Amer 35 L, Est GFR (MDRD) Non-Af 29 L, BUN/Creatinine Ratio 13.1, Glucose 112 H, Calcium 9.9, Procalcitonin 0.33 H 01/26/24 22:09: POC Glucose 80 01/27/24 05:56: POC Glucose 126 H 01/27/24 06:08: WBC 12.7 H, RBC 3.97 L, Hgb 11.5 L, Hct 38.9, MCV 98.0, MCH 29.0, MCHC 29.6 L D, RDW Std Deviation 53.4 H, RDW Coeff of Lanre 14.8 H, Plt Count 285, MPV 11.4, Immature Gran % (Auto) 0.600, Neut % (Auto) 91.1 H, Lymph % (Auto) 2.9 L, [place] % (Auto) 4.8, Eos % (Auto) 0.4, Baso % (Auto) 0.2, Absolute Neuts (auto) 11.6 H, Absolute Lymphs (auto) 0.37 L, Nucleated RBC % 0, Sodium 140, Potassium 4.0, Chloride 110 H, Carbon Dioxide 24.0, Anion Gap 7, BUN 19 H, Creatinine 1.55 H, Estim Creat Clear Calc 34.53, Est GFR (MDRD) Af Amer 43 L, Est GFR (MDRD) Non-Af 35 L, BUN/Creatinine Ratio 12.3, Glucose 117 H, Calcium 8.9, Total Bilirubin 0.50, AST 14 L, ALT 23, Alkaline Phosphatase 111, Total Protein 6.2 L, Albumin 2.4 L, Globulin 3.8, Albumin/Globulin Ratio 0.6 L Imaging Radiology Impression Venous Duplex 01/26/24 17:41 IMPRESSION: Normal venous Doppler ultrasound of the lower extremity. Electronically Signed: Tavo Barrios MD at 19:43 EST , Foot X-Ray 01/26/24 17:48 IMPRESSION: Degenerative and postoperative change. Electronically Signed: Tavo Barrios MD at 19:14 EST , Charges/Coding Visit Charges Inpatient E&M: 32555 Init Hosp L1
[2024-01-27] MEDS: Ondansetron 4 MG/2 ML Vial IV (09:52)
--- NOTE | 2024-01-27 11:43 | CASEMGMT ---
MARIO HURST Assessment Face to Face with patient for initial transition planning/care coordination assessment. MARIO HURST introduced self and role at [facility], pt voices understanding. Pt is A&Ox4 and is resting comfortably in bed and is calm. Care providers, pharmacy, and demographics verified. Admitting dx: RLE Cellulitis PCP: Terry Donnelly Specialists: Alannah Bazzi (Pulmonary), JOSE (Cardio), Mao @ the [facility] Preferred Pharmacy: [facility] Insurance: [employer] A/B, [place] Prescription Benefit: Yes LNOK: Eloisa Casarez (Sister), Wayne Stark (XH) Living Arrangements: Pt lives with her disabled daughter, that she cares for, in a single story home with a basement and 2 steps to enter. Pt states that she does not use the basement. ADLs/IADLs: States independent Transportation: Pt states that she is able to drive but has not been driving lately. Pt states that she has been using [facility] transportation van for appointments. Pt states that her friend has also been providing transportation. DME: Pt states that she has a functioning BGM at home with sufficient supplies. Pt reports that she has a Hx with [employer] for home O2. States that she does not have or need any equipment at this time. Pt is currently 97-98% on RA. Pt also reports that she has a CPAP, W/C, FWW, Vest Oscillator, and Pulse Ox. HHC/SNF: Hx with [facility]. Hx at [facility] in 2017. Pt?s goal: Home Wound: Pt states that her wound is closed/ healed well and that she was recently discharged from the [facility]. Pt states that she plans to f/u with Dr. Cavanaugh in his office as an OP and that the specialist can refer her to the [facility] if needed. Plan: TBD d/t ID consult. Pt reports that the ID doctor stated that she may need a PICC and home IV ATBs multiple times per day. Pt also has not been out of bed yet. 6-click is 20. PT/OT are ordered and evaluations pending. If pt were to go home with IV ATBs, pt states that she can be the teachable caregiver. Pt denies wanting to review a list of local in-network [facility] agencies and states that she would like to go through [facility]. TC to [facility]. Barbara states that they would be able to accept. However, the agency does not have an available nurse until next Tuesday for SOC. CM to follow. A verbal list of local in-network home infusion companies were provided to the pt at this time. Pt states that she would prefer [facility] if she were to go home with IV ATBs. Report given to MS3 MARIO HURST. At this time, [facility] staff is awaiting ID recommendations and therapy evaluations. Stoney Daniels RN, CM
[2024-01-27] MEDS: oxyCODONE 5 MG Tablet PO ×2 (12:29→21:32)
[2024-01-27] MEDS: Acetaminophen 325 MG Tablet 650 MG PO ×2 (12:30→21:32)
[2024-01-27 13:22] LABS: Bedside Glucose 113 mg/dL (74-106)
--- NOTE | 2024-01-27 14:17 | CASEMGMT ---
Spoke with [facility], Barbara is aware that pt will be here through the weekend with possible IV atb. MARIO CM to follow up on Tuesday.
--- NOTE | 2024-01-27 14:29 | CON.PCM.ID_ITS ---
Assessment & Plan Assessment/Plan (1) Acute upper respiratory infection: (2) Cellulitis: PLAN: Cxs pending here, will cont vanc/zosyn. Will follow, thank you HPI Consult Data Date of Consult: 01/27/24 HPI Narrative HPI Narrative: LAURA SERRANO, is a 69 F with COPD, DM, recurrent pneumonia, presented with 3- 4 days progressive severe R foot pain. Has been having some increased cough, sputum, and dyspnea for a few weeks. Recent sputum cx with MRSA and PsA. Had RLE vein ablation 01/08. Developed what was thought to be vasculitis, started on prednisone. Foot pain worsened, came to ED, admitted on vanc/zosyn. Now still pain but R foot redness much improved. Full ROS performed and neg except as noted above. COUNTS INCLUDE 234 BEDS AT THE [facility] Medical History Necrosis Venous ulcer Essential hypertension Hyperlipidemia Asthma Iron deficiency anemia Vitamin D deficiency Chronic diastolic congestive heart failure Hypothyroidism Allergic rhinitis Gastroesophageal reflux disease History of COPD History of diabetes mellitus Atrial fibrillation Hypertension Easy bruising History of stress test History of echocardiogram Cardiology follow-up encounter Wears glasses Anxiety Diabetes Walker as ambulation aid History of renal disease Anemia Migraine headache Back pain Injury of back Shortness of breath on exertion History of edema Pain of left hip Bronchiectasis with (acute) exacerbation High cholesterol Hypothyroidism Kidney disease Former smoker Congestive heart failure (CHF) Hypertension Hypoxemia Bronchiectasis Pneumonia due to Pseudomonas Cough Palpitations Paroxysmal atrial fibrillation Chronic diastolic heart failure GAGAN (obstructive sleep apnea) Septic shock 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 COPD with acute exacerbation Lung nodule Thrush, oral History of DVT (deep vein thrombosis) Abnormal chest CT Shortness of breath Cavitary lesion of lung Aspiration into airway Obesity Chronic respiratory failure Precordial chest pain Paroxysmal atrial tachycardia Right foot pain MRSA pneumonia Venous thromboembolism (VTE) Hyperlipidemia Diabetes mellitus HCAP (healthcare-associated pneumonia) Severe sepsis Coarse tremors Weakness Acute respiratory failure DVT (deep venous thrombosis) Pulmonary embolism Allergic rhinitis Insomnia Steroid myopathy Atrial fibrillation with rapid ventricular response Pneumonia ALEXYS (acute kidney injury) PVD (peripheral vascular disease) Atrial tachycardia Morbid obesity Acute bronchiolitis Tachycardia Hx pulmonary embolism Cellulitis of right lower extremity Umbilical hernia Gastroesophageal reflux disease COLD (chronic obstructive lung disease) Benign essential HTN Home Medications ?Medication ?Instructions ?Recorded ?Last Taken ?Type levothyroxine 25 mcg tablet 25 mcg PO DAILY@0600 thyroid 01/04/20 01/09/24 History famotidine 40 mg tablet 40 mg PO QHS reflux 04/02/20 07/03/21 23:04 History cholecalciferol (vitamin D3) 50 50 mcg PO DAILY SUPPLEMENT 09/19/20 07/04/21 05:54 History mcg (2,000 unit) capsule furosemide 40 mg tablet (Lasix) 40 mg PO BID water pill 09/19/20 07/04/21 05:52 History esomeprazole magnesium 40 mg 40 mg PO DAILY reflux 10/13/20 01/09/24 History capsule,delayed release (Nexium) potassium chloride 20 mEq 20 meq PO BID supplement 10/13/20 01/09/24 History tablet,extended release(part/cryst) ferrous sulfate 325 mg (65 mg 325 mg PO DAILY anemia 06/26/21 01/09/24 History iron) tablet acetaminophen 500 mg tablet 1,000 mg (2 x 500 mg) PO Q8 PRN 07/14/21 01/09/24 Rx pain of temp > 101 #0 tabs albuterol sulfate 2.5 mg/3 mL 2.5 mg (3 mL) inhalation Q4H PRN 05/17/22 Unknown Rx (0.083 %) solution for nebulization breathing #180 vials ipratropium bromide 42 mcg (0.06 2 spray intranasal TID PRN DRY NOSE 03/10/23 Unknown History %) nasal spray latanoprost 0.005 % eye drops 1 drp ophthalmic (eye) QPM 03/10/23 Unknown History albuterol sulfate 90 mcg/actuation 2 puff inhalation Q4H PRN 09/14/23 Unknown Rx aerosol inhaler (Ventolin HFA) shortness of breath or wheezing #3 ea semaglutide (weight loss) 0.5 1 mg subcut QWEEK 09/28/23 Unknown History mg/0.5 mL subcutaneous pen injector apixaban 5 mg tablet (Eliquis) 5 mg PO BID anticoagulant #180 tabs 11/29/23 01/08/24 Rx atorvastatin 10 mg tablet 10 mg PO QHS cholesterol #90 tabs 11/29/23 Unknown Rx diltiazem HCl 180 mg 180 mg PO DAILY heart #90 caps 11/29/23 01/09/24 Rx capsule,extended release 24 hr (Cardizem CD) montelukast 10 mg tablet 10 mg PO QHS asthma #90 tabs 11/29/23 Unknown Rx (Singulair) fluticasone propionate 230 2 puff inhalation BID lungs #3 ea 12/07/23 Unknown Rx mcg-salmeterol 21 mcg/actuation HFA inhaler (Advair HFA) sucralfate 1 gram tablet (Carafate) 1 g PO BID PRN reflux #14 tabs 01/24/24 Unknown Rx Lactobacillus acidophilus 10 mg PO DAILY probitic 01/26/24 Unknown History Allergy/AdvReac Type Severity Reaction Status Date / Time chlorhexidine (From Allergy Severe Hives Verified 01/26/24 17:01 ChloraPrep Clear) isopropyl alcohol (From Allergy Severe Hives Verified 01/26/24 17:01 ChloraPrep Clear) adhesive Allergy SKIN Verified 01/26/24 17:01 TEARS. PAPER TAPE OK azithromycin (From Zithromax) Allergy Rash Verified 01/26/24 17:01 cefuroxime sodium (From Allergy Rash Verified 01/26/24 17:01 Zinacef) clindamycin Allergy Hives Verified 01/26/24 17:01 Sulfa (Sulfonamide Allergy Rash Verified 01/26/24 17:01 Antibiotics) atenolol AdvReac Severe Peripheal Verified 01/26/24 17:01 edema & cough metoprolol (From Toprol XL) AdvReac Severe Peripheral Verified 01/26/24 17:01 edema & cough duloxetine (From Cymbalta) AdvReac Intermediate made me Verified 01/26/24 17:01 feel really sick nitrofurantoin AdvReac Mild unknown Verified 01/26/24 17:01 macrocrystalline (From Macrodantin) Corticosteroids AdvReac Other Verified 01/26/24 17:01 (Glucocorticoids) oxycodone HCl (From Percocet) AdvReac Vomiting Verified 01/26/24 17:01 Family History Mother Hypertension Diabetes Heart disease Pulmonary embolism Father Perforated ulcer Respiratory failure Sister Asthma Hypertension Surgical History History of total left hip replacement Status post total hip replacement, left Status post hip replacement S/P hip replacement Hx of vein stripping S/P hysterectomy History of appendectomy History of cardioversion (~12/2016) History of left heart catheterization H/O hernia repair H/O foot surgery H/O shoulder surgery H/O section H/O: hysterectomy Social History household members: none Smoking Status: Former smoker quit date: 02/14/75 pack-years: 3 second hand exposure: No alcohol intake: never substance use type: does not use caffeine: No what type of physical activity do you participate in: none Physical Exam Const alert, oriented x3 and no apparent distress General Appearance: cooperative HEENT normocephalic and head/scalp atraumatic Eyes PERRL and EOMs intact bilaterally Neck supple and No nodes Resp Auscultation: rhonchi and wheezes Cardio regular rate and regular rhythm GI soft to palpation, non-tender and non-distended Extremity General Extremity: edema Skin Skin Narrative: Mild R foot redness Neuro CN's II-XII intact bilaterally Lab / Micro Data Attestation: I reviewed the patient's lab results. 01/27/24 06:08 01/27/24 06:08 Labs: Laboratory Results - last 24 hr 01/26/24 17:40: WBC 12.8 H, RBC 4.29, Hgb 12.8, Hct 41.0, MCV 95.6, MCH 29.8, M CHC 31.2 L, RDW Std Deviation 52.5 H, RDW Coeff of Lanre 15.0 H, Plt Count 326, MPV 11.1, Immature Gran % (Auto) 0.500, Neut % (Auto) 79.4 H, Lymph % (Auto) 10.9 L, [place] % (Auto) 7.9, Eos % (Auto) 1.1, Baso % (Auto) 0.2, Absolute Neuts (auto) 10.2 H, Absolute Lymphs (auto) 1.40, Nucleated RBC % 0, ESR 75 H, Sodium 140, Potassium 4.1, Chloride 108 H, Carbon Dioxide 27.0, Anion Gap 6, BUN 24 H, Creatinine 1.83 H, Estim Creat Clear Calc 29.91, Est GFR (MDRD) Af Amer 35 L, E st GFR (MDRD) Non-Af 29 L, BUN/Creatinine Ratio 13.1, Glucose 112 H, Calcium 9.9, Procalcitonin 0.33 H 01/26/24 22:09: POC Glucose 80 01/27/24 05:56: POC Glucose 126 H 01/27/24 06:08: WBC 12.7 H, RBC 3.97 L, Hgb 11.5 L, Hct 38.9, MCV 98.0, MCH 29.0, MCHC 29.6 L D, RDW Std Deviation 53.4 H, RDW Coeff of Lanre 14.8 H, Plt Count 285, MPV 11.4, Immature Gran % (Auto) 0.600, Neut % (Auto) 91.1 H, Lymph % (Auto) 2.9 L, [place] % (Auto) 4.8, Eos % (Auto) 0.4, Baso % (Auto) 0.2, Absolute Neuts (auto) 11.6 H, Absolute Lymphs (auto) 0.37 L, Nucleated RBC % 0, Sodium 140, Potassium 4.0, Chloride 110 H, Carbon Dioxide 24.0, Anion Gap 7, BUN 19 H, Creatinine 1.55 H, Estim Creat Clear Calc 34.53, Est GFR (MDRD) Af Amer 43 L, E st GFR (MDRD) Non-Af 35 L, BUN/Creatinine Ratio 12.3, Glucose 117 H, Calcium 8.9, Total Bilirubin 0.50, AST 14 L, ALT 23, Alkaline Phosphatase 111, Total Protein 6.2 L, Albumin 2.4 L, Globulin 3.8, Albumin/Globulin Ratio 0.6 L 01/27/24 12:33: POC Glucose 113 H Imaging Radiology Impression Venous Duplex 01/26/24 17:41 IMPRESSION: Normal venous Doppler ultrasound of the lower extremity. Electronically Signed: Tavo Barrios MD at 19:43 EST , Foot X-Ray 01/26/24 17:48 IMPRESSION: Degenerative and postoperative change. Electronically Signed: Tavo Barrios MD at 19:14 EST ,
[2024-01-27] MEDS: Vancomycin IV 1,000 MG/200 ML BAG 200 MG IV (20:49)
[2024-01-27] MEDS: Famotidine 20 MG Tablet 40 MG PO (21:00)
[2024-01-27] MEDS: Atorvastatin Calcium 10 MG Tablet PO (21:00)
[2024-01-27] MEDS: Montelukast 10 MG Tablet PO (21:01)
[2024-01-27] MEDS: Latanoprost 0.005% 1 Bottle 1 DRP EACH EYE (21:01)
[2024-01-28 00:42] LABS: Bedside Glucose 144 mg/dL (74-106)
[2024-01-28 02:46] VITALS: BP 140/80; PULSE 62; RESP 18; TEMP 36.6; O2SAT 99
[2024-01-28 04:33] VITALS: BMI 37.5
[2024-01-28] MEDS: Piperacil/Tazobactam 3.375 GM in 0.9% Normal Saline (50mL MB+) 50 ML IV ×2 (06:22→14:19)
[2024-01-28] MEDS: Levothyroxine 25 MCG TABLET PO (06:25)
[2024-01-28 07:05] LABS: Bedside Glucose 95 mg/dL (74-106)
[2024-01-28 07:30] VITALS: PULSE 88; RESP 20
[2024-01-28] MEDS: Budesonide Respules 0.5 MG/2 ML AMPUL.NEB. INHALATION (07:45)
[2024-01-28 08:27] VITALS: O2SAT 96
--- NOTE | 2024-01-28 08:37 | PN.HOSP_ITS ---
Reason for Visit Reason for Visit: Diagnoses Acute upper respiratory infection, unspecified (01/26/24) Cellulitis, unspecified (01/26/24) Subjective Subjective Pain in right foot doing better. Objective Data Objective Data Vital Signs: Vital Signs Temp Pulse Resp BP Pulse Ox O2 Del Method 36.6 C 88 20 H 140/80 H 96 Room Air 01/28/24 02:46 01/28/24 07:30 01/28/24 07:30 01/28/24 02:46 01/28/24 08:27 01/28/24 08:27 Oxygen Delivery Method Room Air Weight: 90.2 kg Body Mass Index (BMI) 37.5 Intake & Output: Intake and Output for Last 24 Hours 01/26/24 01/27/24 01/28/24 23:59 23:59 23:59 Intake Total 840 / 840 1650. / 1999.25 800 / 800 Balance 840 / 840 1650. / 1999. 800 / 800 Lab / Micro Data 01/27/24 06:08 01/28/24 09:05 Labs: Laboratory Results - last 24 hr 01/27/24 12:33: POC Glucose 113 H 01/27/24 20:58: POC Glucose 144 H 01/28/24 06:19: POC Glucose 95 Physical Exam Const alert and no apparent distress Extremity Extremity Narrative: no erythema right foot. No TTP on dorsum of right foot. Less TTP on plantar aspect of right foot. Assessment & Plan Assessment/Plan (1) Cellulitis: PLAN: Plan RLE Cellulitis * Abx pip/tazo and vanc * Elevated RLE. * Duplex LE negative. Foot xray negative. * ID consult * Vascular consult given recent RLE brass sorter vein ablation on 01/08. Does not appear to be confluent with the surgical site. * BCx on 01/23 and 01/25 negative. DC with doxycycline and Augmentin. Chronic conditions: * Asthma/Chronic COPD with allergic rhinitis with history of bronchiectasis and previous MRSA lung infections: Currently stable. * Diabetes mellitus type II with chronic neuropathy: Hold oral home regimen, ADA diet, accu checks w/ ISS, continue patient home gabapentin regimen. Currently stable. * PAF: We will continue patient home diltiazem and apixaban * Chronic normocytic anemia/iron deficiency anemia: stable * Hypertension: Continue home regimen including Lasix, diltiazem, PRN hydralazine. * Hyperlipidemia: atorvastatin * History VTE: Patient status post DVT, PE, we will continue patient on Eliquis regimen. * Hypothyroidism: We will continue patient on levothyroxine regimen. * HFpEF: Most recent echocardiogram noted 04/09/2021 with LV systolic function normal, EF is 65%, trivial TVI, diastolic function indeterminate. Will continue patient home Eliquis, statin, Lasix regimen, not on beta-meghan with allergy noted and per current record does not appear to be on JOSE inhibitor/ARB. * Chronic Kidney Disease Stage III unclear subtype per GFR trending: Admission BUN/Cr 24/1.3, GFR 29, baseline renal function primarily 1.3-1.5, most recently prior to this 01/24/2024 creatinine 1.58, repeat BMP in AM. * obesity class II: complicates care and recovery * GERD: We will continue patient home PPI and sucralfate especially given recent GI symptoms/dyspepsia with recent steroid regimen. VTE prophylaxis: not indicated as already anticoagulated.
[2024-01-28 08:45] VITALS: BP 105/70; PULSE 97; RESP 18; TEMP 36.6; O2SAT 97
[2024-01-28] MEDS: dilTIAZem CD 180 MG Capsule PO (08:53)
[2024-01-28] MEDS: Potassium Chloride Oral Tablet 20 MEQ PO (08:53)
[2024-01-28] MEDS: Furosemide 40 MG Tablet PO (08:53)
[2024-01-28] MEDS: APIXABAN 5 MG TABLET PO (08:54)
[2024-01-28] MEDS: Ferrous Sulfate 325 MG Tablet PO (08:54)
[2024-01-28] MEDS: Lactobacillis Acidophilus 1 CAP PO (08:54)
[2024-01-28] MEDS: Pantoprazole Sodium 40 MG Tablet PO (08:54)
[2024-01-28 09:18] LABS: Bedside Glucose 91 mg/dL (74-106)
[2024-01-28 09:53] LABS: Anion Gap 9 (5-15); BUN 17 mg/dL (7-18); BUN/Creat Ratio 11.6 RATIO (10-20); Calcium,Total 8.6 mg/dL (8.5-10.1); Chloride 107 mmol/L (98-107); Creatinine, Serum 1.47 mg/dL (0.55-1.02); EST Glomerular Filtration Rate 37 mL/min (>60); Est Glom Filt Rate - Afr Amer 45 mL/min (>60); Estimated Creatinine Clearance 36.41 ml/min; Glucose 105 mg/dL (74-106); Potassium 3.5 mmol/L (3.5-5.1); Sodium Level 139 mmol/L (136-145)
[2024-01-28 11:44] LABS: Bedside Glucose 135 mg/dL (74-106)
--- NOTE | 2024-01-28 14:14 | DS.PCM_ITS ---
Providers Date of Admission: 01/26/24 Primary Care Physician: Dr. Terry Donnelly MD Consultations 01/26/24 21:11 Consult: Infectious Disease Routine Consulting Provider: Peter Orta Reason for Consult: RLE cellulitis, Hx MRSA/Pseudomonas EMERGENT Consult: No Notified: Yes Date Notified: 01/27/24 Time Notified: 06:54 Method of Notification: Text Consult: Vascular Surgery Routine Consulting Provider: Joo Higuera Reason for Consult: RLE cellulitis, s/p recent ablation/vasculitis EMERGENT Consult: No Notified: Yes Date Notified: 01/26/24 Time Notified: 20:20 Method of Notification: ED Physician Initiated Reason For Visit: RLE CELLULITIS Diagnosis Discharge Diagnosis (1) Cellulitis: Status: Acute Code(s): L03.90 - Cellulitis, unspecified Plan RLE Cellulitis * Abx pip/tazo and vanc * Elevated RLE. * Duplex LE negative. Foot xray negative. 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 Does not appear to be confluent with the surgical site. * BCx on 01/23 and 01/25 negative. DC with doxycycline and Augmentin. Chronic conditions: * Asthma/Chronic COPD with allergic rhinitis with history of bronchiectasis and previous MRSA lung infections: Currently stable. * Diabetes mellitus type II with chronic neuropathy: Hold oral home regimen, ADA diet, accu checks w/ ISS, continue patient home gabapentin regimen. Currently stable. * PAF: We will continue patient home diltiazem and apixaban * Chronic normocytic anemia/iron deficiency anemia: stable * Hypertension: Continue home regimen including Lasix, diltiazem, PRN hydralazine. * Hyperlipidemia: atorvastatin * History VTE: Patient status post DVT, PE, we will continue patient on Eliquis regimen. * Hypothyroidism: We will continue patient on levothyroxine regimen. * HFpEF: Most recent echocardiogram noted 04/09/2021 with LV systolic function normal, EF is 65%, trivial TVI, diastolic function indeterminate. Will continue patient home Eliquis, statin, Lasix regimen, not on beta-meghan with allergy noted and per current record does not appear to be on JOSE inhibitor/ARB. * Chronic Kidney Disease Stage III unclear subtype per GFR trending: Admission BUN/Cr 24/1.3, GFR 29, baseline renal function primarily 1.3-1.5, most recently prior to this 01/24/2024 creatinine 1.58, repeat BMP in AM. * obesity class II: complicates care and recovery * GERD: We will continue patient home PPI and sucralfate especially given recent GI symptoms/dyspepsia with recent steroid regimen. VTE prophylaxis: not indicated as already anticoagulated. Medications at Discharge Home Medications levothyroxine 25 mcg tablet 25 mcg PO DAILY@0600 thyroid 01/04/20 famotidine 40 mg tablet 40 mg PO QHS reflux 04/02/20 cholecalciferol (vitamin D3) 50 mcg (2,000 unit) capsule 50 mcg PO DAILY SUPPLEMENT 09/19/20 furosemide 40 mg tablet (Lasix) 40 mg PO BID water pill 09/19/20 esomeprazole magnesium 40 mg capsule,delayed release (Nexium) 40 mg PO DAILY reflux 10/13/20 potassium chloride 20 mEq tablet,extended release(part/cryst) 20 meq PO BID supplement 10/13/20 ferrous sulfate 325 mg (65 mg iron) tablet 325 mg PO DAILY anemia 06/26/21 acetaminophen 500 mg tablet 1,000 mg (2 x 500 mg) PO Q8 PRN pain of temp > 101 #0 tabs 07/14/21 albuterol sulfate 2.5 mg/3 mL (0.083 %) solution for nebulization 2.5 mg (3 mL) inhalation Q4H PRN breathing #180 vials 05/17/22 ipratropium bromide 42 mcg (0.06 %) nasal spray 2 spray intranasal TID PRN DRY NOSE 03/10/23 latanoprost 0.005 % eye drops 1 drp ophthalmic (eye) QPM 03/10/23 albuterol sulfate 90 mcg/actuation aerosol inhaler (Ventolin HFA) 2 puff inhalation Q4H PRN shortness of breath or wheezing #3 ea 09/14/23 semaglutide (weight loss) 0.5 mg/0.5 mL subcutaneous pen injector 1 mg subcut QWEEK 09/28/23 apixaban 5 mg tablet (Eliquis) 5 mg PO BID anticoagulant #180 tabs 11/29/23 atorvastatin 10 mg tablet 10 mg PO QHS cholesterol #90 tabs 11/29/23 diltiazem HCl 180 mg capsule,extended release 24 hr (Cardizem CD) 180 mg PO DAILY heart #90 caps 11/29/23 montelukast 10 mg tablet (Singulair) 10 mg PO QHS asthma #90 tabs 11/29/23 fluticasone propionate 230 mcg-salmeterol 21 mcg/actuation HFA inhaler (Advair HFA) 2 puff inhalation BID lungs #3 ea 12/07/23 sucralfate 1 gram tablet (Carafate) 1 g PO BID PRN reflux #14 tabs 01/24/24 Lactobacillus acidophilus 10 mg PO DAILY probitic 01/26/24 amoxicillin 875 mg-potassium clavulanate 125 mg tablet 1 tab PO Q12H #10 tabs 01/28/24 doxycycline monohydrate 100 mg capsule 100 mg PO BID #10 caps 01/28/24 oxycodone 5 mg tablet 5 mg PO Q6H PRN pain 3 days #10 tabs 01/28/24 Hospital Course Operations None Procedures None Summary of Care Provided Minutes Spent on Discharge: 32 Hospital Course: Patient presents with right lower extremity cellulitis. Patient recently had vascular intervention performed but did not seem to be confluent with that area. Patient did complain of some pain on the dorsum and plantar aspect of her foot. Patient was started on pip-tazo and vancomycin and her foot is feeling much better at this time. Patient was seen in consultation by also infectious disease. Patient did have blood cultures that were negative. Patient be discharged to complete a 7-day course of antibiotics with doxycycline and Augmentin. Patient still has some pain on the plantar aspect of her foot but doing much better and she feels comfortable going home. Weight / BMI Weight Weight: 90.2 kg Body Mass Index (BMI) 37.5 ABG / Lab / Microbiology Data 01/27/24 06:08 01/28/24 09:05 Laboratory: Laboratory Results - last 24 hr 01/27/24 16:26: POC Glucose 91 01/27/24 20:58: POC Glucose 144 H 01/28/24 06:19: POC Glucose 95 01/28/24 09:05: WBC Cancelled, Corrected WBC Cancelled, RBC Cancelled, Hgb Cancelled, Hct Cancelled, MCV Cancelled, MCH Cancelled, MCHC Cancelled, RDW Std Deviation Cancelled, RDW Coeff of Lanre Cancelled, Plt Count Cancelled, MPV Cancelled, Immature Gran % (Auto) Cancelled, Neut % (Auto) Cancelled, Lymph % (Auto) Cancelled, [place] % (Auto) Cancelled, Eos % (Auto) Cancelled, Baso % (Auto) Cancelled, Absolute Neuts (auto) Cancelled, Absolute Lymphs (auto) Cancelled, Total Counted Cancelled, Neutrophils % (Manual) Cancelled, Band Neutrophils % Cancelled, Lymphocytes % (Manual) Cancelled, Monocytes % (Manual) Cancelled, Eosinophils % (Manual) Cancelled, Basophils % (Manual) Cancelled, Metamyelocytes % Cancelled, Myelocytes % Cancelled, Promyelocytes % Cancelled, Blast Cells % Cancelled, Plasma Cell % (Manual) Cancelled, Other Cells % Cancelled, Nucleated RBC % Cancelled, Nucleated RBCs/100 WBC Cancelled, Differential Comment Cancelled, Diff Path Review Cancelled, Hypersegmented Neuts Cancelled, Atypical Lymphocytes Cancelled, Reactive Lymphocytes Cancelled, Smudge Cells Cancelled, Toxic Granulation Cancelled, Toxic Vacuolation Cancelled, Dohle Bodies Cancelled, Azar Rods Cancelled, Platelet Estimate Cancelled, Plt Morphology Comment Cancelled, RBC Morphology Cancelled 01/28/24 09:05: RBC Morphology Cancelled, Polychromasia Cancelled, Hypochromasia Cancelled, Basophilic Stippling Cancelled, Anisocytosis Cancelled, Microcytosis Cancelled, Macrocytosis Cancelled, Spherocytes Cancelled, Sickle Cells Cancelled, Target Cells Cancelled, Tear Drop Cells Cancelled, Ovalocytes Cancelled, Stomatocytes Cancelled, [place] Bodies Cancelled, [place] Cells Cancelled, Bite Cells Cancelled, Crenated Cell Cancelled, Acanthocytes (Spur) Cancelled, Rouleaux Cancelled, Schistocytes Cancelled, Sodium 139, Potassium 3.5, Chloride 107, Carbon Dioxide 23.0, Anion Gap 9, BUN 17, Creatinine 1.47 H, Estim Creat Clear Calc 36.41, Est GFR (MDRD) Af Amer 45 L, Est GFR (MDRD) Non-Af 37 L, BUN/Creatinine Ratio 11.6, Glucose 105, Calcium 8.6 01/28/24 11:26: POC Glucose 135 H D/C Instructions Discharge Diet: No restrictions DC O2, CPAP, BIPAP Needs Additional Home O2 Discharge instructions: No DC home with Oxygen: No Meaningful Use Info Meaningful Use Meaningful Use Diagnoses (Choose all that apply): None applicable Ischemic Stroke Statin Dosing Therapy Reference: STATIN DOSE THERAPY REFERENCE: * Patients > 75 years receive moderate or high dose statin therapy. * Patients 75 years or YOUNGER should receive HIGH intensity statin dose unless contraindicated. You will be required to document reason for non-treatment if statin daily dose does not meet guidelines. HIGH DOSE STATIN THERAPY DAILY Atorvastatin > than or = to 40 mg Rosuvastatin > than or = to 20 mg Amlodipine + Atorvastatin > than or = to 2.5/40 mg Ezetimibe + Simvastatin 10/80 mg Simvastatin 80mg Discharge Plan Admission Admit Date/Time: 01/26/24 20:18 Primary Reason for Your Visit: right foot cellulitis Attending Provider: Joo Estes Primary Care Provider: Terry Donnelly Consulting Providers: Joo Higuera; Peter Orta; Nathaly Romo Discharge Orders/Prescriptions Prescriptions: New doxycycline monohydrate 100 mg capsule 100 mg PO BID Qty: 10 0RF amoxicillin-pot clavulanate 875-125 mg tablet 1 tab PO Q12H Qty: 10 0RF oxycodone 5 mg tablet 5 mg PO Q6H PRN (Reason: pain) 3 Days Qty: 10 0RF Continued famotidine 40 mg tablet 40 mg PO QHS esomeprazole magnesium [Nexium] 40 mg capsule,delayed release(DR/EC) 40 mg PO DAILY potassium chloride 20 mEq tablet,ER particles/crystals 20 meq PO BID semaglutide (weight loss) 0.5 mg/0.5 mL pen injector 1 mg subcut QWEEK Rx Instructions: administer weeks 5 through 8 of therapy latanoprost 0.005 % drops 1 drp ophthalmic (eye) QPM Rx Instructions: BOTH EYES ipratropium bromide 42 mcg (0.06 %) spray,non-aerosol 2 spray intranasal TID PRN (Reason: DRY NOSE) levothyroxine 25 mcg tablet 25 mcg PO DAILY@0600 Patient Comments: thyroid furosemide [Lasix] 40 mg tablet 40 mg PO BID cholecalciferol (vitamin D3) 50 mcg (2,000 unit) Capsule 50 mcg PO DAILY ferrous sulfate 325 MG tablet 325 mg PO DAILY Rx Instructions: Take 1 hour before doxycycline or in empty stomach while patient is on doxycycline to avoid drug drug interaction. acetaminophen 500 mg tablet 1,000 mg PO Q8 PRN (Reason: pain of temp > 101) Qty: 0 0RF sucralfate [Carafate] 1 gram tablet 1 g PO BID PRN (Reason: reflux) Qty: 14 0RF Lactobacillus acidophilus Capsule 10 mg PO DAILY albuterol sulfate 2.5 mg /3 mL (0.083 %) solution for nebulization 2.5 mg INHALATION Q4H PRN Qty: 180 6RF Rx Instructions: Use q4 hours and PRN for wheezing albuterol sulfate [Ventolin HFA] 90 mcg/actuation HFA aerosol inhaler 2 puff inhalation Q4H PRN (Reason: shortness of breath or wheezing) Qty: 3 3RF Eliquis 5 mg tablet 5 mg PO BID Qty: 180 3RF atorvastatin 10 mg tablet 10 mg PO QHS Qty: 90 3RF diltiazem HCl [Cardizem CD] 180 mg capsule,extended release 24hr 180 mg PO DAILY Qty: 90 3RF Rx Instructions: Hold for heart less than 60 or systolic blood pressure less than 100 mmHg. montelukast [Singulair] 10 mg tablet 10 mg PO QHS Qty: 90 3RF fluticasone propion-salmeterol [Advair HFA] 230-21 mcg/actuation HFA aerosol inhaler 2 puff INHALATION BID Qty: 3 3RF Referrals / Follow Up: Terry Donnelly MD [Primary Care Provider] - Within 2 Weeks Joo Higuear MD [Med Staff - Active Staff] - 02/09/24 10:30 am Disposition Disposition (needs filled in before D/C Order can be placed): Home, Self Care Charges/Coding Visit Charges Inpatient E&M: 57013 Disch Hosp >30min
[2024-01-28 14:15] VITALS: BP 114/75; PULSE 102; RESP 19; TEMP 36.5; O2SAT 98
[2024-01-28] MEDS: oxyCODONE 5 MG Tablet PO (14:19)
[2024-01-28] MEDS: Acetaminophen 325 MG Tablet 650 MG PO (14:19)
--- NOTE | 2024-01-28 15:47 | CASEMGMT ---
Pt has an order for DC placed. Pt is being sent home with PO ATBs instead of IV. RN CM to pt room at this time. Pt daughter at bedside. Pt states that she feels safe discharging home today. This RN CM questioned the pt if she would still like the . At this time, the pt refused the service. Pt also refuses the need for OP Tx or CCN. Pt states that she feels comfortable/ safe enough at home with her daughter. Pt denies any further questions or concerns at this time. TC to [facility], VM left to cancel the referral.
[2024-01-30 09:22] LABS: CRP, High Sensitivity 143.71 mg/L (0.00-3.00)
== END 2024-01-28 15:50 | disposition home or self-care (01) | DRG 603 ==
LOC: ED 17:22 → MS3 20:30
PROVIDERS: Admitting Provider Family Medicine; Emergency Provider Surgery; PCP Family Medicine
DX: L03.115 Cellulitis of right lower limb (principal); I13.0 Hypertensive heart and chronic kidney disease with heart failure and stage 1 through stage 4 chronic kidney disease, or unspecified chronic kidney disease; I50.32 Chronic diastolic (congestive) heart failure; I87.2 Venous insufficiency (chronic) (peripheral); E11.22 Type 2 diabetes mellitus with diabetic chronic kidney disease; D50.9 Iron deficiency anemia, unspecified; E03.9 Hypothyroidism, unspecified; E11.40 Type 2 diabetes mellitus with diabetic neuropathy, unspecified; J44.9 Chronic obstructive pulmonary disease, unspecified; N18.30 Chronic kidney disease, stage 3 unspecified; Z68.37 Body mass index [BMI] 37.0-37.9, adult; I48.0 Paroxysmal atrial fibrillation; E78.00 Pure hypercholesterolemia, unspecified; J30.9 Allergic rhinitis, unspecified; E11.59 Type 2 diabetes mellitus with other circulatory complications; K21.9 Gastro-esophageal reflux disease without esophagitis; J06.9 Acute upper respiratory infection, unspecified; Z90.710 Acquired absence of both cervix and uterus; Z87.891 Personal history of nicotine dependence; Z79.01 Long term (current) use of anticoagulants; Z79.51 Long term (current) use of inhaled steroids; E66.812 Obesity, class 2; Z79.890 Hormone replacement therapy; Z79.899 Other long term (current) drug therapy; Z79.85 Long-term (current) use of injectable non-insulin antidiabetic drugs; Z96.642 Presence of left artificial hip joint; Z90.49 Acquired absence of other specified parts of digestive tract; Z86.79 Personal history of other diseases of the circulatory system
CPT/HCPCS: 71045; 73630; 80048; 80053; 82962; 83605; 83690; 84145; 84484; 85025; 85652; 86141; 87040; 87631; 93005; 93971; 94640; 94668; 97110; 97116; 97162; 97166; 99285; J7030; J7040; A4216; J2405

== ENCOUNTER → 2024-02-09 | Outpatient (CLI) | payer MEDICARE, OTHER, SELFPAY ==
[2024-02-09 17:46] LABS: Absolute Lymphocyte Count 1.88 X10^3/uL (0.83-4.51); Absolute Neutrophil Count 4.7 X10^3/uL (2.0-7.7); Basophil# 0.04 X10^3/uL; Basophil% 0.5 % (0-1); Eosinophil# 0.24 X10^3/uL; Eosinophils% 3.2 % (0-5); Hematocrit 37.1 % (37-47); Hemoglobin 10.9 g/dL (12.0-15.0); Lymphocyte # 1.88 X10^3/ul (0.83-4.51); Lymphocyte % 24.8 % (19-41); Mean Corp Hgb Conc 29.4 g/dL (32-36); Mean Corpuscular Hgb 28.5 pg (27.0-32.0); Mean Corpuscular Volume 96.9 fL (81-99); Monocyte# 0.68 X10^3/uL; NRBC Flagged by Analyzer 0 % (0-5); Platelet Count 439 K/mm3 (150-450); RBC Distribution Width CV 14.5 % (11.6-14.6); Red Blood Count 3.83 M/mm3 (4.2-5.4); White Blood Count 7.6 K/mm3 (4.4-11.0)
[2024-02-09 17:58] LABS: Erythrocyte Sedimentation Rate 38 mm/hr (0-30)
[2024-02-09 18:08] LABS: ALB/GLOB Ratio 0.6 RATIO (0.9-2.4); AST(SGOT) 11 U/L (15-37); Alanine Aminotransfer ALT/SGPT 16 U/L (13-56); Albumin, Serum 2.9 g/dL (3.2-5.0); Alkaline Phosphatase 115 U/L (45-117); Anion Gap 7 (5-15); BUN 26 mg/dL (7-18); BUN/Creat Ratio 12.6 RATIO (10-20); Calcium,Total 9.7 mg/dL (8.5-10.1); Chloride 106 mmol/L (98-107); Creatinine, Serum 2.07 mg/dL (0.55-1.02); EST Glomerular Filtration Rate 25 mL/min (>60); Est Glom Filt Rate - Afr Amer 30 mL/min (>60); Globulin 4.7 g/dL (2.2-4.2); Glucose 94 mg/dL (74-106); Potassium 4.4 mmol/L (3.5-5.1); Protein, Total 7.6 g/dL (6.4-8.2); Sodium Level 139 mmol/L (136-145)
== END | disposition home or self-care (01) ==
LOC: MFPLAB 16:38
PROVIDERS: PCP Family Medicine
DX: Z09 Encounter for follow-up examination after completed treatment for conditions other than malignant neoplasm (principal)
CPT/HCPCS: 36415; 80053; 82533; 85025; 85652; 86140

== ENCOUNTER → 2024-02-13 | Outpatient (CLI) | payer MEDICARE, OTHER, SELFPAY ==
[2024-02-13 18:11] LABS: Anion Gap 12 (5-15); BUN 18 mg/dL (7-18); BUN/Creat Ratio 9.7 RATIO (10-20); Calcium,Total 9.8 mg/dL (8.5-10.1); Chloride 102 mmol/L (98-107); Creatinine, Serum 1.85 mg/dL (0.55-1.02); EST Glomerular Filtration Rate 29 mL/min (>60); Est Glom Filt Rate - Afr Amer 35 mL/min (>60); Glucose 102 mg/dL (74-106); Potassium 3.4 mmol/L (3.5-5.1); Sodium Level 139 mmol/L (136-145)
== END | disposition home or self-care (01) ==
PROVIDERS: PCP Family Medicine; Referring Provider Family Medicine; Visit Provider Family Medicine
DX: E11.22 Type 2 diabetes mellitus with diabetic chronic kidney disease (principal); N18.9 Chronic kidney disease, unspecified
CPT/HCPCS: 36415; 80048

== ENCOUNTER → 2024-02-23 | Outpatient (CLI) | payer MEDICARE, OTHER, SELFPAY ==
[2024-02-23 15:13] LABS: Absolute Lymphocyte Count 2.14 X10^3/uL (0.83-4.51); Absolute Neutrophil Count 5.3 X10^3/uL (2.0-7.7); Basophil# 0.04 X10^3/uL; Basophil% 0.5 % (0-1); Eosinophils% 1.2 % (0-5); Hematocrit 34.8 % (37-47); Hemoglobin 10.2 g/dL (12.0-15.0); Lymphocyte # 2.14 X10^3/ul (0.83-4.51); Lymphocyte % 25.8 % (19-41); Mean Corp Hgb Conc 29.3 g/dL (32-36); Mean Corpuscular Hgb 28.7 pg (27.0-32.0); Mean Platelet Vol. 10.4 fl (6.2-12.0); Monocyte# 0.65 X10^3/uL; Monocyte% 7.8 % (0-10); NRBC Flagged by Analyzer 0 % (0-5); Neutrophil # 5.33 X10^3/uL (2.7-7.7); Neutrophil % 64.1 % (47-70); Platelet Count 525 K/mm3 (150-450); RBC Distribution Width CV 14.8 % (11.6-14.6); RBC Distribution Width SD 53.5 fl (35.1-43.9); Red Blood Count 3.55 M/mm3 (4.2-5.4); White Blood Count 8.3 K/mm3 (4.4-11.0)
[2024-02-23 15:22] LABS: Anion Gap 8 (5-15); BUN 16 mg/dL (7-18); BUN/Creat Ratio 11.3 RATIO (10-20); Calcium,Total 8.9 mg/dL (8.5-10.1); Chloride 106 mmol/L (98-107); Creatinine, Serum 1.42 mg/dL (0.55-1.02); EST Glomerular Filtration Rate 39 mL/min (>60); Est Glom Filt Rate - Afr Amer 47 mL/min (>60); Glucose 96 mg/dL (74-106); Potassium 3.4 mmol/L (3.5-5.1); Sodium Level 140 mmol/L (136-145)
== END | disposition home or self-care (01) ==
LOC: MFPLAB 11:53
PROVIDERS: PCP Family Medicine; Referring Provider Family Medicine; Visit Provider Family Medicine
DX: E11.22 Type 2 diabetes mellitus with diabetic chronic kidney disease (principal); R11.10 Vomiting, unspecified
CPT/HCPCS: 36415; 80048; 85025

== ENCOUNTER → 2024-03-08 | Outpatient (CLI) | payer MEDICARE, OTHER, SELFPAY ==
[2024-03-08 15:38] LABS: Hematocrit 34.9 % (37-47); Hemoglobin 10.3 g/dL (12.0-15.0); Mean Corp Hgb Conc 29.5 g/dL (32-36); Mean Corpuscular Hgb 28.9 pg (27.0-32.0); Mean Platelet Vol. 10.6 fl (6.2-12.0); Platelet Count 393 K/mm3 (150-450); RBC Distribution Width CV 15.2 % (11.6-14.6); Red Blood Count 3.56 M/mm3 (4.2-5.4); White Blood Count 7.9 K/mm3 (4.4-11.0)
[2024-03-08 15:39] LABS: Erythrocyte Sedimentation Rate 41 mm/hr (0-30)
[2024-03-08 15:45] LABS: PTHIN 82.2 pg/mL (18.4-80.1)
[2024-03-08 15:47] LABS: Vitamin B12 384 pg/mL (211-911); Vitamin D,25 Hydroxy 76.2 ng/mL
[2024-03-08 16:19] LABS: Anion Gap 9 (5-15); BUN 22 mg/dL (7-18); BUN/Creat Ratio 14.9 RATIO (10-20); Calcium,Total 9.8 mg/dL (8.5-10.1); Chloride 107 mmol/L (98-107); Creatinine, Serum 1.48 mg/dL (0.55-1.02); EST Glomerular Filtration Rate 37 mL/min (>60); Est Glom Filt Rate - Afr Amer 45 mL/min (>60); Glucose 78 mg/dL (74-106); Iron 52 ug/dL (50-170); Magnesium 2.2 mg/dL (1.6-2.6); Potassium 3.6 mmol/L (3.5-5.1); Rheumatoid Factor < 10.0 IU/mL (<15); Sodium Level 140 mmol/L (136-145)
[2024-03-12 16:08] LABS: ANTINUCLEAR ANTIBODIES DIRECT Negative (Negative)
== END | disposition home or self-care (01) ==
LOC: MFPLAB 11:38
PROVIDERS: PCP Family Medicine; Referring Provider Family Medicine; Visit Provider Family Medicine
DX: E11.22 Type 2 diabetes mellitus with diabetic chronic kidney disease (principal); M87.9 Osteonecrosis, unspecified; I48.91 Unspecified atrial fibrillation; E11.40 Type 2 diabetes mellitus with diabetic neuropathy, unspecified; M79.606 Pain in leg, unspecified; R25.1 Tremor, unspecified; N18.9 Chronic kidney disease, unspecified
CPT/HCPCS: 36415; 80048; 82306; 82607; 83540; 83735; 83970; 84443; 85027; 85652; 86038; 86140; 86431

== ENCOUNTER → 2024-03-26 | Outpatient (CLI) | payer MEDICARE, OTHER, SELFPAY ==
--- NOTE | 2024-03-26 16:15 | MRI_ITS ---
PROCEDURE: MRI lumbar spine without IV contrast) REASON FOR EXAM: Pain TECHNIQUE: Multisequence multiplanar MR images of the lumbar spine were obtained without the administration of intravenous contrast. COMPARISON: 01/17/2024 FINDINGS: Vertebral body heights are within normal limits. Negative for acute fracture or marrow replacement. Moderate levoscoliosis. Grade 1 retrolisthesis of L1-L2, L2-L3 and L3-L4. Grade 1 anterolisthesis of L5-S1. Conus medullaris is within normal limits and terminates at L1. Moderate/severe paraspinal muscle atrophy. No paraspinal mass. L1-2: Posterior disc osteophyte complex. Mild bilateral facet arthrosis. Narrowing of the right lateral recess. No significant spinal stenosis. Moderate right and mild left foraminal narrowing. L2-3: Posterior disc osteophyte complex. Superimposed right subarticular disc extrusion demonstrating 4 mm of caudal migration. Mild bilateral facet arthrosis. Narrowing of the right lateral recess. No significant spinal stenosis. Moderate right and mild left foraminal narrowing. L3-4: Mild posterior disc bulge. Mild bilateral facet arthrosis. Borderline mild spinal stenosis. Moderate/severe left and moderate right foraminal narrowing. L4-5: Posterior disc bulge. Moderate right and severe left facet arthrosis. Ligamentum flavum hypertrophy. Moderate spinal stenosis. Severe narrowing of the left lateral recess due to facet osteophytes. Severe left and mild/moderate right foraminal narrowing. L5-S1: Grade 1 anterolisthesis with uncovering of the posterior disc. Mild superimposed disc bulge. Moderate bilateral facet arthrosis. No significant spinal stenosis. Mild bilateral foraminal narrowing, greater on the left. MRI/Spine Lumbar (Routine) IMPRESSION: 1. Acquired moderate spinal stenosis and severe left lateral recess stenosis at L4-L5. 2. Acquired multilevel foraminal narrowing, greatest on the left at L4-L5. 3. Moderate levoscoliosis. Multilevel melba and retrolisthesis as mentioned a man. Reading Location: [facility]
== END | disposition home or self-care (01) ==
LOC: MRI 16:09
PROVIDERS: PCP Family Medicine; Referring Provider Family Medicine; Visit Provider Family Medicine
DX: M51.369 Other intervertebral disc degeneration, lumbar region without mention of lumbar back pain or lower extremity pain (principal)
CPT/HCPCS: 72148

== ENCOUNTER → 2024-04-11 | Outpatient (CLI) | payer MEDICARE, OTHER, SELFPAY | END | disposition home or self-care (01) | LOC: LABSPEC 14:16 | PROVIDERS: PCP Family Medicine | DX: R35.0 Frequency of micturition (principal) | CPT/HCPCS: 87086 ==

== ENCOUNTER → 2024-04-18 | Outpatient (CLI) | payer MEDICARE, OTHER, SELFPAY ==
[2024-04-18 11:38] LABS: Absolute Lymphocyte Count 1.93 X10^3/uL (0.83-4.51); Absolute Neutrophil Count 5.7 X10^3/uL (2.0-7.7); Basophil# 0.05 X10^3/uL; Basophil% 0.6 % (0-1); Eosinophil# 0.15 X10^3/uL; Eosinophils% 1.8 % (0-5); Hematocrit 35.3 % (37-47); Hemoglobin 10.8 g/dL (12.0-15.0); Lymphocyte # 1.93 X10^3/ul (0.83-4.51); Lymphocyte % 22.5 % (19-41); Mean Corp Hgb Conc 30.6 g/dL (32-36); Mean Corpuscular Volume 94.6 fL (81-99); Mean Platelet Vol. 10.1 fl (6.2-12.0); Monocyte# 0.77 X10^3/uL; NRBC Flagged by Analyzer 0 % (0-5); Neutrophil # 5.65 X10^3/uL (2.7-7.7); Neutrophil % 65.9 % (47-70); Platelet Count 385 K/mm3 (150-450); RBC Distribution Width CV 14.7 % (11.6-14.6); RBC Distribution Width SD 51.2 fl (35.1-43.9); Red Blood Count 3.73 M/mm3 (4.2-5.4); White Blood Count 8.6 K/mm3 (4.4-11.0)
== END | disposition home or self-care (01) ==
LOC: LAB 10:54
PROVIDERS: PCP Family Medicine; Referring Provider Internal Medicine Pulmonary Disease; Visit Provider Internal Medicine Pulmonary Disease
DX: J44.9 Chronic obstructive pulmonary disease, unspecified (principal); J47.9 Bronchiectasis, uncomplicated
CPT/HCPCS: 36415; 85025; 87070; 87077; 87184; 87186; 87205

== ENCOUNTER → 2024-04-19 | Outpatient (CLI) | payer MEDICARE, OTHER, SELFPAY | END | disposition home or self-care (01) | LOC: LABSPEC 12:16 | PROVIDERS: PCP Family Medicine; Referring Provider Internal Medicine Pulmonary Disease; Visit Provider Internal Medicine Pulmonary Disease | DX: J47.9 Bronchiectasis, uncomplicated (principal) | CPT/HCPCS: 87015; 87116; 87206 ==

== ENCOUNTER → 2024-04-20 | Outpatient (CLI) | payer MEDICARE, OTHER, SELFPAY | END | disposition home or self-care (01) | LOC: LABSPEC 09:46 | PROVIDERS: PCP Family Medicine; Referring Provider Internal Medicine Pulmonary Disease; Visit Provider Internal Medicine Pulmonary Disease | DX: J47.9 Bronchiectasis, uncomplicated (principal) | CPT/HCPCS: 87015; 87070; 87077; 87116; 87184; 87186; 87205; 87206 ==

== ENCOUNTER → 2024-04-21 | Outpatient (CLI) | payer MEDICARE, OTHER, SELFPAY | END | disposition home or self-care (01) | LOC: LAB 09:37 | PROVIDERS: PCP Family Medicine; Referring Provider Internal Medicine Pulmonary Disease; Visit Provider Internal Medicine Pulmonary Disease | DX: J47.9 Bronchiectasis, uncomplicated (principal) | CPT/HCPCS: 87015; 87116; 87206 ==

== ENCOUNTER → 2024-04-24 | Outpatient (CLI) | payer MEDICARE, OTHER, SELFPAY ==
[2024-04-24 20:19] LABS: Anion Gap 16 (5-15); BUN 31 mg/dL (4-19); BUN/Creat Ratio 22.6 RATIO (10-20); Calcium,Total 9.7 mg/dL (7.6-11.0); Carbon Dioxide 21.3 mmol/L (21.0-32.0); Chloride 106 mmol/L (98-108); Creatinine, Serum 1.36 mg/dL (0.70-1.20); EST Glomerular Filtration Rate 42 (>60); Glucose 71 mg/dL (70-99); Sodium Level 143 mmol/L (133-145)
[2024-04-24 21:35] LABS: PTHIN 92 pg/mL (11-61)
== END | disposition home or self-care (01) ==
LOC: MFPLAB 15:52
PROVIDERS: PCP Family Medicine; Referring Provider Family Medicine; Visit Provider Family Medicine
DX: E11.40 Type 2 diabetes mellitus with diabetic neuropathy, unspecified (principal); E11.22 Type 2 diabetes mellitus with diabetic chronic kidney disease; R79.82 Elevated C-reactive protein (CRP)
CPT/HCPCS: 36415; 80048; 83970; 86140

== ENCOUNTER → 2024-05-10 | Outpatient (CLI) | payer MEDICARE, OTHER, SELFPAY ==
[2024-05-10 12:34] LABS: Anion Gap 22 (5-15); BUN 24 mg/dL (4-19); Calcium,Total 8.8 mg/dL (7.6-11.0); Carbon Dioxide 15.4 mmol/L (21.0-32.0); Chloride 104 mmol/L (98-108); Creatinine, Serum 1.28 mg/dL (0.70-1.20); EST Glomerular Filtration Rate 45 (>60); Glucose 77 mg/dL (70-99); Sodium Level 141 mmol/L (133-145)
== END | disposition home or self-care (01) ==
LOC: MTLAB 09:01
PROVIDERS: PCP Family Medicine; Referring Provider Family Medicine; Visit Provider Family Medicine
DX: I10 Essential (primary) hypertension (principal)
CPT/HCPCS: 36415; 80048

== ENCOUNTER → 2024-05-23 | Outpatient (CLI) | payer MEDICARE, OTHER, SELFPAY ==
[2024-05-23 15:05] LABS: AST(SGOT) 16 U/L (<=31); Alanine Aminotransfer ALT/SGPT 11 U/L (<=34); Albumin, Serum 3.8 g/dL (3.4-4.8); Alkaline Phosphatase 128 U/L (35-104); Bilirubin, Direct 0.12 mg/dL (0.00-0.30); Cholesterol 143 mg/dL (<=200); Globulin 3.9 g/dL (2.2-4.2); High Density Lipoprotein 46 mg/dL; Low Density Lipoprotein Calc. 72 mg/dL; Protein, Total 7.7 g/dL (5.9-8.4); Total Bilirubin 0.28 mg/dL (0.00-1.30); Triglycerides 125 mg/dL; Very Low Density Lipoprotein 25 mg/dL (5-40); cholesterol:hdl ratio screen 3.11
== END | disposition home or self-care (01) ==
PROVIDERS: PCP Family Medicine; Referring Provider Student in an Organized Health Care Education/Training Program; Visit Provider Student in an Organized Health Care Education/Training Program
DX: I48.0 Paroxysmal atrial fibrillation (principal); E78.5 Hyperlipidemia, unspecified
CPT/HCPCS: 36415; 80061; 80076; 93225; 93226

== ENCOUNTER 2024-06-14 10:00 | Outpatient (RCR) | payer MEDICARE, OTHER, SELFPAY ==
--- NOTE | 2024-05-14 10:27 | HP.PTEVAL ---
Patient's Visit Information Visit Information Visit Information: LAURA SERRANO is a 69 year old F referred to Physical Therapy by Dr. Benigno Suárez MD with a diagnosis of spondylolisthesis, lumbar scoliosis. Date of Evaluation: 05/14/24 Physical Therapist: Joo Antony, DPT, OCS, CSCS Visit Plan Frequency: 2x /Week Plan: 2x/week for 4-6 weeks IE HEP : trunk rotation, supine PT 10x 2x/day and find NS upon standing. Course of PT and exit strategy expecatations. Please treat with instruct and progress to HEP with list/ pics in the followin. FW weight shift and vest balance ex, L ankle ROM 2. lumbar ROM exercises and core strength on mat to HEP 3. full body general ex in standing adn WB including hips, LE, core, posture and to HEP. Funcitonal balance walking to tolerance of back. Subjective Subjective: Chronic back issues. Now increased numbness in B Cony MARKHAM gave MRI adn sent to [facility]. No surgical options. Has bad bone density. Will send to pain management and is waiting on that call.Will be Cornelio and has seen him before in the distant past. 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 Numbness is from knees down to feet and going up to thighs a and buttocks. Uses wh walker to get around . can only stand for short bperiods of time but longer with laning on something. Can walk with walker without pain. Used walker since hip surgery in 2021. Uses it for balance and pain in L leg and back pain and has for 3 yrs. Has DM and has neuropathy from that also. No exercises at home. Live with Cordelia Olea who neeeds her help. Laura does the housework and needs frequent breaks. May se neurologist and possible EMG Pain LBP: Pain Intensity (Out of 10): 0 Pain Intensity Range: 0 and 6 Comment: 6 if stands or walks too far. Objective Objective: Walks with wh walker into PT avoiding pushoff and poor weight shifts but mod I. Without AD is hesitant and small steps and SBA. steps are reciprocal lacking Fw weight shift and pulling with hands to ascend. Chair and bed trasnfers are slow but I. L ankle AROM i very limited and stiff and is dealing with foot doctor for this, otherwise ankle and hip adn knee aROM WFL B. strength in hips is 3+ abd and xt and 3+ flexion with instability in spine and opposite hip apparent. knee strngth 4- B flex and ext. ankles 3 in L ankle and 4- in R ankle. reflexes 0/3 B achilles, 1/3 B patella. sensation is poor in lower legs and nil in feet to gross light touch. Balance/Special Test Scores Functional Gait Assessment Score: 15 % Disability: 50.0000 CATSIB Score (Max score 120 seconds): 94 Oswestry Low Back Score: 23 Goals Goal 1:: I appropriate HEP for balance, weight shift, LE adn core strength adn LB ROM flexion bias to minimize future prboleems. Goal Time Frame: 4-6 Weeks Goal 2:: Pain in LB 2/10 at worst and 50% better Goal Time Frame: 4-6 Weeks Goal 3:: 20 on FGa to limit fall risk Goal Time Frame: 4-6 Weeks Goal 4:: 15 or less oswestry Goal Time Frame: 4-6 Weeks Rehabilitation Potential Rehabilitation Potential: Fair Anticipated Interventions Patient/Client Instruction: Educate patient on: Condition and Risk Factors For the Purpose of:: To decrease pain, To increase ROM, To improve nutrient delivery to tissue, To improve muscle performance and motor function, To increase tolerance to activity/condition/position, To improve ability of physical actions for home/community/work/leisure and To improve gait and locomotor functions Therapeutic Exercise to Include: Strength training, Balance training, Postural training and Flexibilty training For the Purpose of:: To decrease pain, To increase ROM, To improve nutrient delivery to tissue, To improve muscle performance and motor function, To increase tolerance to activity/condition/position and To improve ability of physical actions for home/community/work/leisure Text: Thank you for the opportunity to evaluate your patient. For Medicare and Medicare HMO plans, please review the plan of care and approve it. It will need to be FAXED BACK to us at [phone] for Medicare purposes. For Medicare only, by signing this I certify the plan of care. Please let me know if there are questions or concerns regarding this plan of care. Physician Signature: Date:
--- NOTE | 2024-06-14 10:44 | HP.PTDCSUM ---
Discharge Summary D/C summary: It has been my pleasure to treat LAURA SERRANO referred by Dr. Benigno Suárez MD, with the diagnosis of spondylolisthesis, lumbar scoliosis for a total of 10 visit(s). Discharge Date: 06/14/24 Please see the following information for a summary of their discharge status. Subjective Subjective: Back is better. Exercises really helped. Can walk where she needs to without walker now. Has been shopping without a lot of pain. Uses walker for longer walks. Sleep is ok. Will continue via HEP. Will see neuro instead of Dr. Suárez. Numbness persists and does not change. Pain LBP: Pain Intensity (Out of 10): 0 Hips/Knees: Pain Intensity (Out of 10): 4 Overall Improvement % Improvement: 75 Objective Objective/Function: Good LB AROM without pain today(slight with L SB transiently) Walk well without AD on FGA today but did not do steps due to knee pain. Wants to be on own with home ex vs continuing PT POC. Goals Goal 1:: I appropriate HEP for balance, weight shift, LE adn core strength adn LB ROM flexion bias to minimize future prboleems. Goal Progress: Goal Met Goal 2:: Pain in LB 2/10 at worst and 50% better Goal Progress: Goal Met Goal 3:: 20 on FGa to limit fall risk Goal Progress: Goal Met Goal 4:: 15 or less oswestry Goal Progress: Goal Met Plan Plan: d/c to HEP D/C Information d/c sentence: If there are questions or concerns regarding this patient's physical therapy, please feel free to call me at [phone]. Thank you for the referral of this patient. Sincerely, Joo Antony, DPT, OCS, CSCS Balance/Gait/Functional tests Balance/Special Test Scores Functional Gait Assessment Score: 21 % Disability: 30.0000 CATSIB Score (Max score 120 seconds): 94 Oswestry Low Back Score: 12 Improvement % Improvement: 75
== END 2024-06-14 19:00 | disposition home or self-care (01) ==
LOC: PT 10:00
PROVIDERS: PCP Family Medicine; Referring Provider Orthopaedic Surgery Orthopaedic Surgery of the Spine; Visit Provider Orthopaedic Surgery Orthopaedic Surgery of the Spine
DX: M41.9 Scoliosis, unspecified (principal); M43.16 Spondylolisthesis, lumbar region
CPT/HCPCS: 97110; 97161; 97164

== ENCOUNTER → 2024-07-05 | Outpatient (CLI) | payer MEDICARE, OTHER, SELFPAY ==
--- NOTE | 2024-07-05 10:47 | RAD_ITS ---
PROCEDURE: CHEST PA AND LATERAL 07/05/2024 REASON FOR EXAM: CONGESTION, WHEEZING TECHNIQUE: Frontal and lateral views of the chest. COMPARISON: None available FINDINGS: 1.6 cm nodule at the peripheral lower right upper lobe. May follow-up with nonemergent chest CT. The lungs otherwise appear clear. Pulmonary vascularity appears within limits. No pleural effusion. Mild hyperinflation. Mild scarring or atelectasis of the bases. The cardiac and mediastinal contours appear within limits. Atherosclerotic change at the aortic arch. Right shoulder replacement noted. RAD/Chest PA and Lateral IMPRESSION: 1.6 cm nodule at the peripheral lower right upper lobe. May follow-up with none mergent chest CT. The lungs otherwise appear clear. Pulmonary vascularity appears within limits. No pleural effusion. Mild hyperinflation. Mild scarring or atelectasis of the bases. Reading Location: [id number]
== END | disposition home or self-care (01) ==
LOC: MTRAD 10:45
PROVIDERS: PCP Family Medicine
DX: J39.9 Disease of upper respiratory tract, unspecified (principal)
CPT/HCPCS: 71046

== ENCOUNTER → 2024-07-19 | Outpatient (CLI) | payer MEDICARE, OTHER, SELFPAY ==
--- NOTE | 2024-07-19 13:36 | VDLE_ITS ---
Reason For Study Reason For Study: Left leg pain RIGHT LEFT CFV is compressible, spontaneous, phasic, competent GSV is normal. and demonstrates normal augmentation. CFV is compressible, spontaneous, phasic, competent, Procedure and demonstrates normal augmentation. This is a venous duplex using B-mode, color flow and FV is compressible, spontaneous, phasic, competent spectral Doppler. and demonstrates normal augmentation. Exam performed in department. POP V is compressible, spontaneous, phasic, competent A preliminary report was called and/or faxed to and demonstrates normal augmentation. Cony. T/P Trunk is compressible. PTV is compressible. LT PerV is compressible. VL/Venous Duplex US, Unilateral Interpretation Summary Deep veins of the left lower extremity are patent and compressible segmentally. There is no evidence of left lower extremity deep vein thrombosis. Valvular competence appears intact within the p roximal deep venous system on the left . The left great saphenous vein appears patent and compressible segmentally. The right common femoral vein is patent and compressible . Ordering Physician: Terry Donnelly Referring Physician: Terry Donnelly Performed By: Astrid Hawkins RVT
== END | disposition home or self-care (01) ==
LOC: CVS 13:34
PROVIDERS: PCP Family Medicine; Referring Provider Family Medicine; Visit Provider Family Medicine
DX: M79.605 Pain in left leg (principal)
CPT/HCPCS: 93971

== ENCOUNTER → 2024-07-25 | Outpatient (CLI) | payer MEDICARE, OTHER, SELFPAY ==
[2024-07-25 17:39] LABS: Absolute Lymphocyte Count 0.78 X10^3/uL (0.83-4.51); Absolute Neutrophil Count 4.1 X10^3/uL (2.0-7.7); Basophil# 0.02 X10^3/uL; Basophil% 0.4 % (0-1); Eosinophil# 0.26 X10^3/uL; Eosinophils% 4.6 % (0-5); Hematocrit 36.4 % (37-47); Hemoglobin 11.2 g/dL (12.0-15.0); Lymphocyte # 0.78 X10^3/ul (0.83-4.51); Lymphocyte % 13.9 % (19-41); Mean Corp Hgb Conc 30.8 g/dL (32-36); Mean Corpuscular Hgb 29.2 pg (27.0-32.0); Mean Corpuscular Volume 94.8 fL (81-99); Mean Platelet Vol. 10.6 fl (6.2-12.0); Monocyte# 0.43 X10^3/uL; Monocyte% 7.7 % (0-10); NRBC Flagged by Analyzer 0 % (0-5); Neutrophil % 72.9 % (47-70); Platelet Count 204 K/mm3 (150-450); RBC Distribution Width CV 15.7 % (11.6-14.6); RBC Distribution Width SD 54.3 fl (35.1-43.9); Red Blood Count 3.84 M/mm3 (4.2-5.4); White Blood Count 5.6 K/mm3 (4.4-11.0)
[2024-07-25 18:36] LABS: Anion Gap 13 (5-15); BUN 22 mg/dL (4-19); BUN/Creat Ratio 16.9 RATIO (10-20); Calcium,Total 9.4 mg/dL (7.6-11.0); Carbon Dioxide 25.2 mmol/L (21.0-32.0); Chloride 105 mmol/L (98-108); Creatinine, Serum 1.27 mg/dL (0.70-1.20); EST Glomerular Filtration Rate 45 (>60); Glucose 113 mg/dL (70-99); Potassium 3.7 mmol/L (3.3-5.1); Sodium Level 143 mmol/L (133-145)
== END | disposition home or self-care (01) ==
LOC: MFPLAB 17:00
PROVIDERS: PCP Family Medicine; Referring Provider Family Medicine; Visit Provider Family Medicine
DX: E11.40 Type 2 diabetes mellitus with diabetic neuropathy, unspecified (principal); J47.9 Bronchiectasis, uncomplicated
CPT/HCPCS: 36415; 80048; 85025; 86140

== ENCOUNTER → 2024-08-02 | Outpatient (CLI) | payer MEDICARE, OTHER, SELFPAY ==
--- NOTE | 2024-08-02 12:35 | RAD_ITS ---
PROCEDURE: CHEST PA AND LATERAL 08/02/2024 REASON FOR EXAM: MODERATE PERSISTENT ASTHMA, UNCOMPLICATED TECHNIQUE: CHEST PA AND LATERAL COMPARISON: 07/05/2024. FINDINGS: Unchanged 1.6 cm nodule in the peripheral aspect of the right upper lobe. Unchanged emphysema. Unchanged mild bilateral basilar atelectatic pulmonary changes. Unchanged blunting of the costophrenic angles, probably adhesions. Unchanged mild cardiomegaly. Right shoulder hemiarthroplasty with unremarkable metallic prosthesis. Unchanged diffuse spondylosis. RAD/Chest PA and Lateral IMPRESSION: Interval appearance of mild bilateral basilar atelectatic pulmonary changes. Unchanged 1.6 cm nodule in the peripheral aspect of the right upper lobe. Reading [facility]
== END | disposition home or self-care (01) ==
LOC: RAD 12:33
PROVIDERS: PCP Family Medicine; Referring Provider Internal Medicine Pulmonary Disease; Visit Provider Internal Medicine Pulmonary Disease
DX: J45.40 Moderate persistent asthma, uncomplicated (principal)
CPT/HCPCS: 71046

== ENCOUNTER → 2024-08-22 | Outpatient (CLI) | payer MEDICARE, OTHER, SELFPAY ==
--- NOTE | 2024-08-22 15:34 | BD_ITS ---
PROCEDURE: DEXA BONE DENSITY STUDY 08/22/2024 REASON FOR EXAM: F, age 69 y/o . Postmenopausal. TECHNIQUE: DEXA BONE DENSITY STUDY COMPARISON: Prior study dated October 04, 2019. FINDINGS: BMD and T-SCORES Right femoral neck: 0.636 g/cm2, T-score -1.9 Femoral neck comparison data not recommended for monitoring change. Right total hip: 0.735 g/cm2, T-score -1.7 Change from prior: Loss of 15.6%. Left 1/3 radius: 0.433 g/cm2, T-score -2.7 The World Health Organization has defined the following categories based on bone density: Normal bone density: T-score equal to or greater than -1.0 Osteopenia: T-score between -1.0 and -2.5 Osteoporosis: T-score equal to or less than -2.5 The patient does meet the pharmacological treatment recommendations for prevention of osteoporosis. BD/Dexa Bone Density Study IMPRESSION: OSTEOPOROSIS. Recommend follow-up as clinically warranted. Reading Location: [place] [id number]
== END | disposition home or self-care (01) ==
LOC: OPBD 15:34
PROVIDERS: PCP Family Medicine; Referring Provider Family Medicine; Visit Provider Family Medicine
DX: M81.0 Age-related osteoporosis without current pathological fracture (principal)
CPT/HCPCS: 77080

== ENCOUNTER → 2024-08-23 | Outpatient (CLI) | payer MEDICARE, OTHER, SELFPAY | END | disposition home or self-care (01) | LOC: LABSPEC 12:07 | PROVIDERS: PCP Family Medicine; Referring Provider Internal Medicine Pulmonary Disease; Visit Provider Internal Medicine Pulmonary Disease | DX: J47.9 Bronchiectasis, uncomplicated (principal) | CPT/HCPCS: 87070; 87077; 87186; 87205 ==

== ENCOUNTER 2024-09-05 11:05 | Outpatient (CLI) | payer MEDICARE, OTHER, SELFPAY ==
--- NOTE | 2024-09-05 11:07 | RAD_ITS ---
PROCEDURE: CHEST PA AND LATERAL 09/05/2024 REASON FOR EXAM: PAIN/ BRONCHIECTASIS TECHNIQUE: CHEST PA AND LATERAL COMPARISON: 08/02/2024 FINDINGS: Unchanged lung markings. Unchanged 1.6 cm nodule in the peripheral aspect of the right upper lobe. No new focal consolidation. Bibasilar subsegmental atelectasis. No pleural effusion or pneumothorax. Cardiac silhouette is within normal limits. Calcified aortic arch. Right shoulder prosthesis. RAD/Chest PA and Lateral IMPRESSION: Unchanged lung markings. Unchanged 1.6 cm nodule in the peripheral aspect of th e right upper lobe. No new focal consolidation. Reading Location: [id number]
[2024-09-05 13:46] LABS: Hematocrit 34.0 % (37-47); Hemoglobin 10.5 g/dL (12.0-15.0); Immature Granulocytes Count 0.070 X10^3/uL (0.0-0.0); Mean Corp Hgb Conc 30.9 g/dL (32-36); Mean Corpuscular Volume 93.2 fL (81-99); Mean Platelet Vol. 9.7 fl (6.2-12.0); NRBC Flagged by Analyzer 0 % (0-5); Platelet Count 479 K/mm3 (150-450); RBC Distribution Width CV 14.6 % (11.6-14.6); RBC Distribution Width SD 49.6 fl (35.1-43.9); Red Blood Count 3.65 M/mm3 (4.2-5.4); White Blood Count 8.7 K/mm3 (4.4-11.0)
[2024-09-05 14:31] LABS: PTHIN 51 pg/mL (11-61)
[2024-09-05 14:50] LABS: FOLATES,SERUM (FOLIC ACID) 13.10 ng/mL (4.60-34.80)
[2024-09-05 14:57] LABS: AST(SGOT) 16 U/L (<=31); Alanine Aminotransfer ALT/SGPT 7 U/L (<=34); Albumin, Serum 3.6 g/dL (3.4-4.8); Alkaline Phosphatase 99 U/L (35-104); Anion Gap 15 (5-15); BUN 30 mg/dL (4-19); BUN/Creat Ratio 21.4 RATIO (10-20); Calcium,Total 9.7 mg/dL (7.6-11.0); Carbon Dioxide 22.6 mmol/L (21.0-32.0); Chloride 105 mmol/L (98-108); Globulin 3.7 g/dL (2.2-4.2); Glucose 78 mg/dL (70-99); Potassium 4.0 mmol/L (3.3-5.1)
[2024-09-05 16:17] LABS: CRP 34.90 mg/L (0.0-3.0); Ferritin 79 ng/mL (22-378); Vitamin B12 > 4000 pg/mL (180-914); Vitamin D,25 Hydroxy 66.2 ng/mL (30-100)
[2024-09-05 16:29] LABS: Iron 44 ug/dL (50-170)
[2024-09-07 17:08] LABS: PROEL- A/G Ratio 0.8 (0.7-1.7); PROEL- Albumin 2.9 g/dL (2.9-4.4); PROEL- Alpha-1 Globulin 0.4 g/dL (0.0-0.4); PROEL- Alpha-2 Globulin 1.3 g/dL (0.4-1.0); PROEL- Beta Globulin 1.2 g/dL (0.7-1.3); PROEL- Gamma Globulin 0.9 g/dL (0.4-1.8); PROEL- Globulin, Total 3.8 g/dL (2.2-3.9); PROEL- TOTAL PROTEIN 6.7 g/dL (6.0-8.5); PROEL-M-Spike Not Observed g/dL (Not Observed)
== END 2024-09-05 23:59 | disposition home or self-care (01) ==
LOC: MTLAB 11:06
PROVIDERS: PCP Family Medicine; Referring Provider Family Medicine; Visit Provider Family Medicine
DX: G62.9 Polyneuropathy, unspecified (principal); J47.9 Bronchiectasis, uncomplicated
CPT/HCPCS: 71046; 80053; 82306; 82607; 82728; 82746; 83540; 83970; 84165; 84443; 85025; 85652; 86038; 86140; 86431

== ENCOUNTER 2024-09-05 14:28 | Outpatient (CLI) | payer MEDICARE, OTHER, SELFPAY ==
[2024-09-05 14:33] VITALS: BP 131/83; PULSE 103; RESP 16; TEMP 35.8; O2SAT 98
[2024-09-05] MEDS: Cefepime HCl 2 GM in 0.9% Normal Saline (100mL MB+) 100 ML IV (15:04)
[2024-09-05 15:58] VITALS: BP 121/59; PULSE 88; RESP 16
== END 2024-09-05 23:59 | disposition home or self-care (01) ==
LOC: MEDOUTP 14:28
PROVIDERS: PCP Family Medicine; Referring Provider Internal Medicine Pulmonary Disease; Visit Provider Internal Medicine Pulmonary Disease
DX: J47.9 Bronchiectasis, uncomplicated (principal)
CPT/HCPCS: 96365; A4216

== ENCOUNTER 2024-09-06 12:36 | Emergency (ER) | payer MEDICARE, OTHER, SELFPAY ==
[2024-09-06] VITALS (9 sets, daily range): BP systolic 101–119; BP diastolic 51–78; PULSE 100–121; RESP 12–22; TEMP 37–38.5; O2SAT 95–100
--- NOTE | 2024-09-06 13:43 | EKG12_ITS ---
Test Reason : Blood Pressure : */* mmHG Vent. Rate : 112 BPM Atrial Rate : 112 BPM P-R Int : 152 ms QRS Dur : 68 ms QT Int : 320 ms P-R-T Axes : 57 -45 65 degrees QTcB Int : 436 ms Sinus tachycardia with Premature atrial complexes Left anterior fascicular block Abnormal ECG Confirmed by ROB CARMONA, SHAHRZAD ([id number]), electronic news gathering editor VERO ALANIS ([id number]) on 09/10/2024 9:43:30 AM Referred By: Genevieve Bailey Confirmed By: SHAHRZAD RIVAS MD
[2024-09-06] MEDS: 0.9% Normal Saline (1000mL) 1,000 ML 999 ML IV (14:03)
[2024-09-06 14:10] LABS: Hematocrit 36.0 % (37-47); Hemoglobin 11.2 g/dL (12.0-15.0); Immature Granulocytes Count 0.040 X10^3/uL (0.0-0.0); Mean Corp Hgb Conc 31.1 g/dL (32-36); Mean Corpuscular Volume 94.0 fL (81-99); Mean Platelet Vol. 9.6 fl (6.2-12.0); NRBC Flagged by Analyzer 0 % (0-5); POSITIVE DIFFERENTIAL YES; Platelet Count 437 K/mm3 (150-450); RBC Distribution Width CV 14.9 % (11.6-14.6); RBC Distribution Width SD 51.6 fl (35.1-43.9); Red Blood Count 3.83 M/mm3 (4.2-5.4); White Blood Count 9.8 K/mm3 (4.4-11.0)
--- NOTE | 2024-09-06 14:15 | CT_ITS ---
PROCEDURE: CT CHEST, ABD, PEL W/CONTRAST 09/06/2024 REASON FOR EXAM: FEVER, VOMITING, COUGH TECHNIQUE: Chest, abdomen and pelvis CT with intravenous contrast. Coronal and Sagittal reconstruction series were provided. One or more dose reduction techniques were used (e.g., Automated exposure control, adjustment of the mA and/or kV according to patient size, use of iterative reconstruction technique. PATIENT PREPARATION: Per protocol ORAL CONTRAST TYPE: None. CONTRAST: Isovue 370 VOLUME: 100mL RADIATION DOSE SUMMARY: DLP: 1900 mGycm COMPARISON: CT chest 08/04/23. FINDINGS: CT CHEST: Hardware: None. Lymph nodes: No left axillary, mediastinal or hilar lymphadenopathy. Visualization of the right axilla is limited by streak artifact. Heart and Vasculature: The heart is normal in size without pericardial effusion. The great vessels are normal in caliber. Moderate coronary artery and mild thoracic aortic calcifications. Lungs and Airways: Visualization is significantly limited by motion artifact. The central airways are grossly patent. Stable partially calcified right upper lobe pulmonary nodule, unchanged over numerous examinations. Additional staple left upper lobe pulmonary nodules (for example series 2, images 32 and 47). Bibasilar atelectasis/scarring. No pleural effusion or pneumothorax. Bones: Thoracic spondylosis. Prior right shoulder arthroplasty. CT ABDOMEN/PELVIS: Liver: The liver is normal in size without suspicious hepatic mass. The major portal veins are patent. No biliary ductal dilation. Gallbladder: Mild layering sludge within the gallbladder. Spleen: Normal-size. Pancreas: Grossly unremarkable. Adrenals: No adrenal mass. Kidneys: No hydronephrosis or nephrolithiasis. Bladder: Minimally distended and unremarkable. Reproductive Organs: Prior hysterectomy. Bowel: The bowel loops are nondilated. No ascites or free air. No inflammatory mass in the expected region of the appendix. Lymph nodes: No suspicious lymphadenopathy. Vasculature: Severe plaque of the aortoiliac vessels. Bones: Lumbar spondylosis with mild leftward curvature of the upper lumbar spine. Prior left total hip arthroplasty. CT/CT Chest, Abd, Pel w/Contrast IMPRESSION: CT chest: 1. No acute thoracic finding given limitations. 2. Stable bilateral pulmonary nodules, unchanged over several years. CT abdomen/pelvis: No acute abdominopelvic finding. Reading Location: [facility]
[2024-09-06 14:24] LABS: Partial Thromboplast Time 31.1 Seconds (24.1-36.2); Prothrombin Time (Protime)PT. 16.9 SECONDS (11.7-14.9)
[2024-09-06 14:42] LABS: CPK Total, Creatine Kinase 41 U/L (24-195)
[2024-09-06 14:52] LABS: AST(SGOT) 17 U/L (<=31); Alanine Aminotransfer ALT/SGPT < 5 U/L (<=34); Albumin, Serum 3.5 g/dL (3.4-4.8); Alkaline Phosphatase 98 U/L (35-104); Anion Gap 15 (5-15); BUN 20 mg/dL (4-19); BUN/Creat Ratio 15.1 RATIO (10-20); Calcium,Total 9.3 mg/dL (7.6-11.0); Carbon Dioxide 21.9 mmol/L (21.0-32.0); Chloride 107 mmol/L (98-108); Globulin 3.7 g/dL (2.2-4.2); Glucose 102 mg/dL (70-99); Potassium 3.5 mmol/L (3.3-5.1)
[2024-09-06 14:54] LABS: Mucous, Urine 0 SEEN /hpf (<or=2+); Red Blood Cells-Urine 0 SEEN /hpf (0-5); Squamous Epithelial Cells - UA 0 SEEN /hpf (5-10)
[2024-09-06 14:57] LABS: Color, Urine Yellow (Yellow); Glucose, Dipstick Normal (Normal); Ketone-Dipstick Negative (Negative); Leukocyte Esterase-Dipstick 25 /ul (Negative); Nitrite-Dipstick Negative (Negative); Occult Blood-Urine 10 /ul (Negative); Protein-Dipstick 30 mg/dl (Negative); Specific Gravity, Urine 1.015 (1.002-1.030); Urine Bilirubin Dipstick Negative (Negative)
--- NOTE | 2024-09-06 14:59 | EX.ED.DYSGE1 ---
HPI History of Present Illness Chief Complaint: Fever Informant: patient Narrative Narrative: Patient is a 69-year-old female with history of diabetes mellitus, bronchiectasis, atrial fibrillation, pulmonary emboli (on Eliquis and has not missed any doses), obstructive sleep apnea, hypertension and hyperlipidemia presenting for fever, nausea and vomiting. Patient follows with Dr. Danielle and was started on IV cefepime through the infusion center yesterday. She notes that since June she has been sick with an ongoing cough and intermittent fevers. She has had arthralgias and myalgias. She did sputum culture that grew drug-resistant Pseudomonas that was indeterminant sensitivity to Levaquin. She has already been on 10 days of aerosolized tobramycin and states that she is compliant with her medications. She also has a percussion vest. She notes after getting home from her first dose of IV antibiotics yesterday she had multiple episodes of vomiting. She states that she vomited hourly till 5 or 6 AM. She has associated headache and fever. She did not take any antipyretics prior to arrival. She notes that she had lab work yesterday. She denies any associated abdominal pain or urinary symptoms. States she generally feels weak. Came in for further evaluation. [facility] Medical History Pseudomonas pneumonia Asthma exacerbation in COPD Pneumonia Hypoxia Morbid obesity with BMI of 40.0-44.9, adult UTI (urinary tract infection) Necrosis Venous ulcer Essential hypertension Hyperlipidemia Asthma Iron deficiency anemia Vitamin D deficiency Chronic diastolic congestive heart failure Hypothyroidism Allergic rhinitis Gastroesophageal reflux disease History of COPD History of diabetes mellitus Atrial fibrillation Hypertension Easy bruising History of stress test History of echocardiogram Cardiology follow-up encounter Wears glasses Anxiety Diabetes Walker as ambulation aid History of renal disease Anemia Migraine headache Back pain Injury of back Shortness of breath on exertion History of edema Pain of left hip Bronchiectasis with (acute) exacerbation High cholesterol Hypothyroidism Kidney disease Former smoker Congestive heart failure (CHF) Hypertension Hypoxemia Bronchiectasis Pneumonia due to Pseudomonas Cough Palpitations Chronic diastolic heart failure GAGAN (obstructive sleep apnea) Septic shock 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 COPD with acute exacerbation Lung nodule Thrush, oral History of DVT (deep vein thrombosis) Abnormal chest CT Shortness of breath Cavitary lesion of lung Aspiration into airway Obesity Chronic respiratory failure Precordial chest pain Paroxysmal atrial tachycardia Right foot pain MRSA pneumonia Venous thromboembolism (VTE) Hyperlipidemia Diabetes mellitus HCAP (healthcare-associated pneumonia) Severe sepsis Coarse tremors Weakness Acute respiratory failure DVT (deep venous thrombosis) Pulmonary embolism Allergic rhinitis Insomnia Steroid myopathy Atrial fibrillation with rapid ventricular response Pneumonia ALEXYS (acute kidney injury) PVD (peripheral vascular disease) Atrial tachycardia Morbid obesity Acute bronchiolitis Tachycardia Hx pulmonary embolism Cellulitis of right lower extremity Umbilical hernia Gastroesophageal reflux disease COLD (chronic obstructive lung disease) Benign essential HTN Home Medications Medication Instructions Recorded Last Taken Type levothyroxine 25 mcg tablet 25 mcg PO DAILY@0600 thyroid 01/04/20 01/09/24 History cholecalciferol (vitamin D3) 50 50 mcg PO DAILY SUPPLEMENT 09/19/20 07/04/21 05:54 History mcg (2,000 unit) capsule furosemide 40 mg tablet (Lasix) 40 mg PO BID water pill 09/19/20 07/04/21 05:52 History esomeprazole magnesium 40 mg 40 mg PO DAILY reflux 10/13/20 01/09/24 History capsule,delayed release (Nexium) potassium chloride 20 mEq 20 meq PO BID supplement 10/13/20 01/09/24 History tablet,extended release(part/cryst) ferrous sulfate 325 mg (65 mg 325 mg PO DAILY anemia 06/26/21 01/09/24 History iron) tablet acetaminophen 500 mg tablet 1,000 mg (2 x 500 mg) PO Q8 PRN 07/14/21 01/09/24 Rx pain of temp > 101 #0 tabs albuterol sulfate 2.5 mg/3 mL 2.5 mg (3 mL) inhalation Q4H PRN 05/17/22 Unknown Rx (0.083 %) solution for nebulization breathing #180 vials ipratropium bromide 42 mcg (0.06 2 spray intranasal TID PRN DRY NOSE 03/10/23 Unknown History %) nasal spray latanoprost 0.005 % eye drops 1 drp ophthalmic (eye) QPM 03/10/23 Unknown History albuterol sulfate 90 mcg/actuation 2 puff inhalation Q4H PRN 09/14/23 Unknown Rx aerosol inhaler (Ventolin HFA) shortness of breath or wheezing #3 ea semaglutide (weight loss) 0.5 1 mg subcut QWEEK 09/28/23 Unknown History mg/0.5 mL subcutaneous pen injector montelukast 10 mg tablet 10 mg PO QHS asthma #90 tabs 11/29/23 Unknown Rx (Singulair) fluticasone propionate 230 2 puff inhalation BID lungs #3 ea 12/07/23 Unknown Rx mcg-salmeterol 21 mcg/actuation HFA inhaler (Advair HFA) apixaban 5 mg tablet (Eliquis) 5 mg PO BID anticoagulant #180 tabs 05/16/24 Unknown Rx diltiazem HCl 180 mg 180 mg PO DAILY heart #90 caps 05/16/24 Unknown Rx capsule,extended release 24 hr (Cardizem CD) rosuvastatin 5 mg tablet 5 mg PO QDAY #90 tabs 06/08/24 Unknown Rx ondansetron 4 mg disintegrating 4 mg PO Q6H PRN nausea and 09/06/24 Unknown Rx tablet vomiting #20 tabs Allergy/AdvReac Type Severity Reaction Status Date / Time chlorhexidine (From Allergy Severe Hives Verified 09/06/24 12:36 ChloraPrep Clear) isopropyl alcohol (From Allergy Severe Hives Verified 09/06/24 12:36 ChloraPrep Clear) adhesive Allergy SKIN Verified 09/06/24 12:36 TEARS. PAPER TAPE [place] azithromycin (From Zithromax) Allergy Rash Verified 09/06/24 12:36 cefuroxime sodium (From Allergy Rash Verified 09/06/24 12:36 Zinacef) clindamycin Allergy Hives Verified 09/06/24 12:36 Sulfa (Sulfonamide Allergy Rash Verified 09/06/24 12:36 Antibiotics) atenolol AdvReac Severe Peripheal Verified 09/06/24 12:36 edema & cough metoprolol (From Toprol XL) AdvReac Severe Peripheral Verified 09/06/24 12:36 edema & cough duloxetine (From Cymbalta) AdvReac Intermediate "made me Verified 09/06/24 12:36 feel really sick" nitrofurantoin AdvReac Mild unknown Verified 09/06/24 12:36 macrocrystalline (From Macrodantin) atorvastatin AdvReac Unknown myalgias Verified 09/06/24 12:36 Corticosteroids AdvReac Other Verified 09/06/24 12:36 (Glucocorticoids) oxycodone HCl (From Percocet) AdvReac Vomiting Verified 09/06/24 12:36 Family History Mother Hypertension Diabetes Heart disease Pulmonary embolism Father Perforated ulcer Respiratory failure Sister Asthma Hypertension Surgical History History of total left hip replacement Status post total hip replacement, left Status post hip replacement S/P hip replacement Hx of vein stripping S/P hysterectomy History of appendectomy History of cardioversion (~12/2016) History of left heart catheterization H/O hernia repair H/O foot surgery H/O shoulder surgery H/O section H/O: hysterectomy Social History household members: none Smoking Status: Former smoker quit date: 02/14/75 pack-years: 3 second hand exposure: No alcohol intake: never substance use type: does not use caffeine: No what type of physical activity do you participate in: none ROS ROS ED Constitutional Constitutional ED: Reports chills and fever(s) Eyes Eyes: Denies change in vision ENT ENT ED: Denies rhinorrhea or sore throat Cardiovascular Cardiovascular: Denies chest pain Respiratory/Chest Respiratory/Chest: Reports cough, dyspnea and sputum Gastrointestinal Gastrointestinal: Reports nausea and vomiting; Denies abdominal pain Genitourinary Genitourinary ED: Denies dysuria or urinary frequency Musculoskeletal Musculoskeletal: Reports arthralgias and myalgias Integumentary Denies rash Neurologic Neurologic: Reports weakness Hematologic/Lymphatic Hematologic/Lymphatic: Reports easy bleeding, easy bruising and other Details: On Eliquis EXAM Physical Exam Const Vital Signs: 09/06/24 12:37 09/06/24 12:51 09/06/24 12:51 Temperature 101.3 F H 98.7 F Temperature Source Oral Oral Pulse Rate 121 H 114 H Respiratory Rate 22 H 17 Respiratory Effort Normal Short of Breath Blood Pressure 101/69 107/53 L Blood Pressure Mean 79 71 Pulse Ox 95 99 Oxygen Delivery Method Room Air 09/06/24 13:39 09/06/24 13:57 09/06/24 14:00 Temperature 98.9 F 98.9 F Temperature Source Oral Oral Pulse Rate 108 H 108 H Respiratory Rate 12 15 Respiratory Effort Blood Pressure 109/51 L 108/78 Blood Pressure Mean 70 88 Pulse Ox 96 99 Oxygen Delivery Method Room Air Room Air Room Air 09/06/24 15:00 09/06/24 16:00 Temperature 98.9 F 98.9 F Temperature Source Oral Oral Pulse Rate 113 H 101 H Respiratory Rate 22 H 16 Respiratory Effort Blood Pressure 119/59 L 110/57 L Blood Pressure Mean 79 74 Pulse Ox 95 96 Oxygen Delivery Method Room Air Room Air Positive well nourished and well developed General Appearance ED: well developed and NAD HEENT Reports dry mucous membranes Mouth ED: Yes dry mucous membranes Mouth: dry mucous membranes Eyes PERRL Neck supple and no JVD Chest Wall inspection of chest normal Resp normal respiratory effort Resp Narrative: Course breath sounds with scattered rales. No significant wheezing present. Cardio regular rhythm and no murmurs Rate: tachycardic GI normal to inspection, nondistended, normoactive bowel sounds and non-tender Extremity Extremity Narrative: Chronic venous stasis changes of the lower extremities with thickening of the skin more pronounced on the left lower leg. No drainage present. No specific warmth or cellulitic changes. 2+ bilateral pedal edema Neuro oriented x3 Sensorium / Orientation: alert Motor Exam: general weakness Psych mental status grossly normal Skin Skin Narrative: Chronic venous stasis changes of the bilateral legs, no other rash appreciated MDM MDM MDM Narrative Medical decision making narrative: Patient valuated for continued fever, cough as well as now nausea and vomiting. She received her first dose of IV cefepime through the infusion center yesterday and subsequently developed vomiting with it. She notes she is continue to have the fever and headache for the past 3 months and that is why she is on the IV antibiotics in addition to positive sputum culture. Upon arrival patient is tachycardic and febrile. She is hemodynamically stable in the emergency room. She appears mildly dehydrated. Patient is given IV fluids and Tylenol as well as Zofran. Septic workup including CBC, CMP, urinalysis and lactate is obtained. In addition CT of the chest is obtained to look for any type of lung abscess or more severe infection. CT of the abdomen pelvis is obtained looking for obstruction or intra-abdominal infection that could be causing the patient's recurrent fevers. Patient reevaluated. She feels much improved after Zofran, Tylenol and fluids. Lab work largely unremarkable. Lactate normal. Urinalysis extensive infection. CT of the chest abdomen pelvis shows a stable pulmonary nodule but no other acute process. I spoke with the patient as well as her kier operator, Dr. Rodrigues, who are both comfortable with her receiving a dose of cefepime here and gave prescription for Zofran as tolerated. Plan is to give infusion of cefepime in the ER and as long as she does not have severe nausea/vomiting can be discharged home with continued outpatient follow-up with pulmonology and at the infusion center. Given that the fevers or subacute we do not think she particularly needs admission for this however down the road ultimately she might if she cannot tolerate course of IV antibiotics through the infusion center. Anticipate discharge home prescription Zofran as long as patient can tolerate p.o. after cefepime infusion. Lab Data Attestation: I reviewed the patient's lab results. Labs: Laboratory Results - last 24 hr 09/06/24 09/06/24 12:57 14:44 WBC 9.8 RBC 3.83 L Hgb 11.2 L Hct 36.0 L MCV 94.0 MCH 29.2 MCHC 31.1 L RDW Std Deviation 51.6 H RDW Coeff of Lanre 14.9 H Plt Count 437 MPV 9.6 Immature Gran % (Auto) 0.400 Neut % (Auto) 88.9 H Lymph % (Auto) 5.0 L [place] % (Auto) 4.6 Eos % (Auto) 0.9 Baso % (Auto) 0.2 Absolute Neuts (auto) 8.7 H Absolute Lymphs (auto) 0.49 L Nucleated RBC % 0 PT 16.9 H INR 1.3 APTT 31.1 Sodium 144 Potassium 3.5 Chloride 107 Carbon Dioxide 21.9 Anion Gap 15 BUN 20 H Creatinine 1.29 H Est GFR (MDRD) Non-Af 45 L BUN/Creatinine Ratio 15.1 Glucose 102 H Lactic Acid < 1.0 Calcium 9.3 Total Bilirubin 0.40 AST 17 ALT < 5 Alkaline Phosphatase 98 Total Creatine Kinase 41 Total Protein 7.2 Albumin 3.5 Globulin 3.7 Albumin/Globulin Ratio 1.0 Urine Color Yellow Urine Clarity Clear Urine pH 6.0 Ur Specific [place] 1.015 Urine Protein 30 H Urine Glucose (UA) Normal Urine Ketones Negative Urine Occult Blood 10 H Urine Nitrite Negative Urine Bilirubin Negative Urine Urobilinogen Normal Ur Leukocyte Esterase 25 H Urine RBC 0 SEEN Urine WBC 0-5 SEEN Ur Squamous Epith Cells 0 SEEN Ur Transition Epith Cell 0-5 SEEN Urine Bacteria 0 SEEN Urine Mucus 0 SEEN Radiography Diagnostic Testing: Clinical Impression(s) from Imaging Studies Chest/Abdomen/Pelvis CT 09/06/24 14:15 IMPRESSION: CT chest: 1. No acute thoracic finding given limitations. 2. Stable bilateral pulmonary nodules, unchanged over several years. CT abdomen/pelvis: No acute abdominopelvic finding. Reading Location: [facility] Rhythm Strip Rhythm Strip: Sinus Tach Rate: 112 Ectopy: None EKG Initial EKG: Attestation: I personally reviewed and interpreted this EKG as follows: Interpretation: Sinus Tachycardia Comments: Sinus tachycardia at a rate of 112 bpm PACs Left anterior fascicular block Normal axis Normal intervals Normal ST segments Management Discussion w/another healthcare provider: Section Gang (Pulmonology ) Discharge Plan Triage Chief Complaint: Fever ED Provider: Genevieve Bailey Dx/Rx/DC Orders Clinical Impression: Fever, Nausea and vomiting, Infection, Pseudomonas, Pulmonary nodule Instructions: ED Fever Control (Adult), ED Vomiting (Adult) Prescriptions: New ondansetron 4 mg tablet,disintegrating 4 mg PO Q6H PRN (Reason: nausea and vomiting) Qty: 20 0RF No Action esomeprazole magnesium [Nexium] 40 mg capsule,delayed release(DR/EC) 40 mg PO DAILY potassium chloride 20 mEq tablet,ER particles/crystals 20 meq PO BID semaglutide (weight loss) 0.5 mg/0.5 mL pen injector 1 mg subcut QWEEK Rx Instructions: administer weeks 5 through 8 of therapy latanoprost 0.005 % drops 1 drp ophthalmic (eye) QPM Rx Instructions: BOTH EYES ipratropium bromide 42 mcg (0.06 %) spray,non-aerosol 2 spray intranasal TID PRN (Reason: DRY NOSE) Eliquis 5 mg tablet 5 mg PO BID Qty: 180 3RF diltiazem HCl [Cardizem CD] 180 mg capsule,extended release 24hr 180 mg PO DAILY Qty: 90 3RF Rx Instructions: Hold for heart less than 60 or systolic blood pressure less than 100 mmHg. levothyroxine 25 mcg tablet 25 mcg PO DAILY@0600 Patient Comments: thyroid furosemide [Lasix] 40 mg tablet 40 mg PO BID cholecalciferol (vitamin D3) 50 mcg (2,000 unit) Capsule 50 mcg PO DAILY ferrous sulfate 325 MG tablet 325 mg PO DAILY Rx Instructions: Take 1 hour before doxycycline or in empty stomach while patient is on doxycycline to avoid drug drug interaction. acetaminophen 500 mg tablet 1,000 mg PO Q8 PRN (Reason: pain of temp > 101) Qty: 0 0RF albuterol sulfate 2.5 mg /3 mL (0.083 %) solution for nebulization 2.5 mg INHALATION Q4H PRN Qty: 180 6RF Rx Instructions: Use q4 hours and PRN for wheezing albuterol sulfate [Ventolin HFA] 90 mcg/actuation HFA aerosol inhaler 2 puff inhalation Q4H PRN (Reason: shortness of breath or wheezing) Qty: 3 3RF montelukast [Singulair] 10 mg tablet 10 mg PO QHS Qty: 90 3RF fluticasone propion-salmeterol [Advair HFA] 230-21 mcg/actuation HFA aerosol inhaler 2 puff INHALATION BID Qty: 3 3RF rosuvastatin 5 mg tablet 5 mg PO QDAY Qty: 90 3RF Primary Care Provider: Terry Donnelly Referrals: Terry Donnelly MD [Primary Care Provider] - Activity Restrictions/Additional Instructions: Please follow-up with Dr. Ambrocio tomorrow as scheduled. Use Zofran as needed to treat nausea. Push fluids at home. Continue take Tylenol as needed for fever. Continue with infusion. If you are not tolerating antibiotics and may need to switch to a different 1 but this might require increased frequency. Print Language: Guinean Disposition Disposition: Home, Self Care
[2024-09-06 15:03] LABS: Transitional Epithelial - Ur 0-5 SEEN /hpf (0-5)
[2024-09-06] MEDS: Cefepime HCl 2 GM in 0.9% Normal Saline (100mL MB+) 100 ML IV (16:19)
== END 2024-09-06 18:25 | disposition home or self-care (01) ==
PROVIDERS: Emergency Provider Emergency Medicine; PCP Family Medicine; Referring Provider Emergency Medicine; Visit Provider Emergency Medicine
DX: R50.9 Fever, unspecified (principal); E11.9 Type 2 diabetes mellitus without complications; Z87.891 Personal history of nicotine dependence; R91.1 Solitary pulmonary nodule; E78.00 Pure hypercholesterolemia, unspecified; Z86.711 Personal history of pulmonary embolism; Z86.718 Personal history of other venous thrombosis and embolism; Z90.710 Acquired absence of both cervix and uterus; Z82.5 Family history of asthma and other chronic lower respiratory diseases; R11.2 Nausea with vomiting, unspecified; R51.9 Headache, unspecified; Z83.3 Family history of diabetes mellitus; Z82.49 Family history of ischemic heart disease and other diseases of the circulatory system; Z79.01 Long term (current) use of anticoagulants; I10 Essential (primary) hypertension; E78.5 Hyperlipidemia, unspecified; G47.33 Obstructive sleep apnea (adult) (pediatric); E03.9 Hypothyroidism, unspecified; B96.5 Pseudomonas (aeruginosa) (mallei) (pseudomallei) as the cause of diseases classified elsewhere
CPT/HCPCS: 71260; 74177; 80053; 81001; 82550; 83605; 85025; 85610; 85730; 87040; 87086; 87631; 93005; 96365; 96375; 96376; 99283; Q9967; A4216; J2405

== ENCOUNTER 2024-09-07 08:02 | Outpatient (CLI) | payer MEDICARE, OTHER, SELFPAY ==
[2024-09-07 08:30] VITALS: BP 117/49; PULSE 94; RESP 16; TEMP 36.8; O2SAT 99; BMI 34.7
[2024-09-07] MEDS: 0.9% NaCl IVPB Med Flush (100mL) 15 ML IV (08:38)
[2024-09-07] MEDS: 0.9% NaCl Peripheral Flush Adult IV ×2 (08:38→20:34)
[2024-09-07] MEDS: Cefepime HCl 2 GM in 0.9% Normal Saline (100mL MB+) 100 ML IV ×2 (08:38→20:35)
[2024-09-07 09:31] VITALS: BP 116/58; PULSE 94
[2024-09-07 20:29] VITALS: BP 95/55; PULSE 55; RESP 20; TEMP 36.9; O2SAT 95
[2024-09-07] MEDS: 0.9% NaCl IVPB Med Flush (250 mL) 15 ML IV (20:39)
[2024-09-07 21:34] VITALS: BP 102/57; PULSE 95; RESP 18; TEMP 36.7; O2SAT 99
--- NOTE | 2024-09-07 21:42 | NURSING ---
Patient's infusion complete. KNITTED CLOTH EXAMINER to walk patient out to her car in wheelchair.
== END 2024-09-07 21:42 | disposition home or self-care (01) ==
LOC: MEDOUTP 08:04 → MS3 19:36
PROVIDERS: PCP Family Medicine; Referring Provider Internal Medicine Pulmonary Disease; Visit Provider Internal Medicine Pulmonary Disease
DX: J47.9 Bronchiectasis, uncomplicated (principal)
CPT/HCPCS: 96365; 96366; A4216

== ENCOUNTER 2024-09-08 07:49 | Outpatient (CLI) | payer MEDICARE, OTHER, SELFPAY ==
--- OUTSIDE RECORDS SUMMARY | 2024-09-08 07:56 | XMS RPT_ITS | CCD ---
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 Ervin Donnelly Primary Care Provider [phone] Dr. Ervin Donnelly Referring Provider [facility] FANS CLERK, FANS CLERK-C Juan Hernandez Attending Provider Dr. Pete Bazzi Attending Provider Dr. Hardik Aragon Attending Provider [phone] Shivam FANS CLERK, FANS CLERK-C Marie Attending Provider [phone] Shivam FANS CLERK, FANS CLERK-C Marie Referring Provider [phone] Dr. Nathaniel Reynoso Admit Provider [phone] Nathaniel Reynoso Referring Provider Dr. Nathaniel Reynoso Other Provider [phone] 2 NEDA Conde-Anam Fung Other Provider Dr. Joo Hooks Other Provider Dr. Julien Mitchell Other Provider Mekhi FANS CLERK, FANS CLERK-C Linda Attending Provider Dr. Joo Estes Attending Provider Dr. Joo Estes Other Provider Dr. Julien Mitchell Attending Provider Dr. Ervin Donnelly Primary Care Provider [phone] Dr. Ervin Donnelly Referring Provider [facility] FANS CLERK, FANS CLERK-C Juan Hernandez Attending Provider Dr. Pete Bazzi Attending Provider Dr. Hardik Aragon Attending Provider Langley FANS CLERK, FANS CLERK-C Marie Attending Provider Shivam FANS CLERK, FANS CLERK-C Marie Referring Provider Dr. Nathaniel Reynoso Admit Provider Dr. Nathaniel Reynoso Referring Provider Dr. Nathaniel Reynoso Other Provider JOHN Conde Other Provider Dr. Joo Hooks Other Provider Dr. Julien Mitchell Attending Provider Dr. Julien Mitchell Other Provider Dr. Joo Estes Attending Provider Dr. Joo Estes Other Provider Dr. Katelyn Davis Emergency Provider Linnea, Dr. Aby Melo Admit Provider Korjorge, Dr. Aby Melo Attending Provider Korjorge, Dr. Aby Melo Other Provider Vincent, Dr. Jose Angel Rangel Admit Provider Vincent, Dr. Jose Angel Rangel Other Provider Dr. Kelly Liu Attending Provider Dr. Ervin Donnelly Primary Care Provider [phone] Dr. Ervin Donnelly Referring Provider Dr. Pete Bazzi Attending Provider Dr. Ervin Donnelly Primary Care Provider [phone] Dr. Katelyn Davis Emergency Provider Korjorge, Dr. Aby Melo Admit Provider Koram, Dr. Aby Melo Attending Provider Koram, Dr. Aby Melo Other Provider Vincent, Dr. Jose Angel Rangel Admit Provider Vincent, Dr. Jose Angel Rangel Other Provider Alexa, Dr. Kelly Gonzáles Attending Provider Dr. Ervin Donnelly Referring Provider Dr. Pete Bazzi Attending Provider Moreno Donnelly MD Primary Care Provider Moreno Donnelly MD Unavailable Moreno Donnelly MD Primary Care Provider Moreno Donnelly MD Unavailable Moreno Donnelly MD Primary Care Provider Moreno Donnelly MD Unavailable Dr. Ervin Donnelly Primary Care Provider Dr. Ervin Donnelly Referring Provider Dr. Hardik Aragon Attending Provider Dr. Ervin Donnelly Primary Care Provider Shivam FANS CLERK, FANS CLERK-C Marie Attending Provider [phone] Shivam FANS CLERK, FANS CLERK-C Marie Referring Provider Dr. Ervin Donnelly Primary Care Provider Shivam FANS CLERK, FANS CLERK-C Marie Attending Provider Shivam FANS CLERK, FANS CLERK-C Marie Referring Provider Dr. Ervin Donnelly Referring Provider Dr. Pete Bazzi Attending Provider Pranay FANS CLERK, FANS CLERK-C Adry Attending Provider Dr. Ervin Donnelly Primary Care Provider Moreno Donnelly MD Primary Care Provider KEYON MEADE Attending UnavailNICKY Urias Referring Unavailable MORENO DONNELLY Primary Care UnavailDr. Ervin Dixon Primary Care Provider Dr. Ervin Donnelly Referring Provider Pranay FANS CLERK, FANS CLERK-C Adry Attending Provider Shivam FANS CLERK, FANS CLERK-C Marie Attending Provider [phone] Dr. Pete Bazzi Attending Provider Dr. Ervin Donnelly Primary Care Provider Dr. Ervin Donnelly Referring Provider Dr. Joo Higuera Attending Provider Dr. Ervin Donnelly Primary Care Provider Dr. Ervin Donnelly Referring Provider Dr. Pete Bazzi Attending Provider Dr. Joo Higuera Attending Provider Dr. Nicky Cavanaugh Referring Provider [phone] Moreno Donnelly Primary Care Provider Dr. Moreno Donnelly Referring Provider Moreno Donnelly MD Primary Care Provider Moreno Donnelly MD Unavailable LINDA RESTREPO Attending Unavailable MORENO DONNELLY Primary Care UnavailLINDA Ford Attending Unavailable MORENO DONNELLY Primary Care UnavailDr. Moreno Dixon MD Primary Care Provider Vikkiorrow FANS CLERK-Jan Mendieta Attending Provider Vikkiorrow FANS CLERK-CJan Referring Provider Dr. Moreno Donnelly MD Attending Provider Dr. Moreno Donnelly MD Referring Provider Nargisel FANS CLERK-C, Jeanie Attending Provider Lolly CARMONA, Dr. Peter Sales Attending Provider Lolly CARMONA, Dr. Peter Sales Referring Provider Jose Armando CARMONA, Dr. Pelaez Attending Provider Chrissie CARMONA, Dr. Peck Attending Provider Filemon Flood Attending Provider Filemon Flood Referring Provider Jose Armando CARMONA, Dr. Pelaez Referring Provider Cony CARMONA, Dr. Stewart Primary Care Provider Cony CARMONA, Dr. Stewart Attending Provider [phone] Cony CARMONA, Dr. Stewart Referring Provider Jose Armando CARMONA, Dr. Pelaez Referring Provider Jenni FANS CLERK-C, Jeanie Referring Provider Cony CARMONA, Dr. Stewart Primary Care Provider Cony CARMONA, Dr. Stewart Attending Provider [phone] Cony CARMONA, Dr. Stewart Referring Provider [phone] Joshua CARMONA, Dr. Cal Enciso Attending Provider Cony CARMONA, Dr. Stewart Primary Care Provider Cony CARMONA, Dr. Stewart Referring Provider Cony CARMONA, Dr. Stewart Attending Provider Jenni FANS CLERK-C, Jeanie Attending Provider Lolly CARMONA, Dr. Peter Sales Attending Provider Lolly CARMONA, Dr. Peter Sales Referring Provider Cony CARMONA, Dr. Stewart Primary Care Provider Cony CARMONA, Dr. Stewart Referring Provider Chrissie CARMONA, Dr. Peck Attending Provider Jose Armando CARMONA, Dr. Pelaez Attending Provider Lolly CARMONA, Dr. Peter Sales Other Provider Lynn HAY, Dr. Vallejo Referring Provider Dr. Genevieve Bailey DO Emergency Provider [phone] Jenni BONILLA, Jeanie Attending Unavailable Ranney, Christopher Primary Care Unavailable Lobito Garnadosison Referring Unavailable Indu Granados Attending Unavailable Ranney, Christopher Primary Care Unavailable Nicky Cavanaugh Attending Unavailable Nicky Cavanaugh Referring Unavailable Ranney, Christopher Primary Care Unavailable Ranney, Christopher Primary Care Unavailable RanneyMoreno Attending Unavailable Ranney, Christopher Referring Unavailable Genevieve Bailey Referring Unavailable Genevieve Bailey Attending Unavailable Ranney, Christopher Primary Care Unavailable Peter Orta Referring Unavailable Peter Orta Attending Unavailable Ranney, Christopher Primary Care Unavailable Peter Ambrocio V Attending Unavailable Peter Ambrocio V Referring Unavailable Ranney, Christopher Primary Care Unavailable Davida, Joo Referring Unavailable DavidaJoo Attending Unavailable Ranney, Christopher Primary Care Unavailable LeonardoHenry Referring Unavailable Henry Patterson Attending Unavailable Ranney, Christopher Primary Care Unavailable Ranney, Christopher Primary Care Unavailable Katelyn Davis Attending Unavailable Nicky Valdivia Attending Unavailable Ranney, Christopher Primary Care Unavailable Graham Mancini Attending Unavailable Ranney, Christopher Primary Care Unavailable Ranney, Christopher Primary Care Unavailable Ranney, Christopher Referring Unavailable Ranney Christlillyer Attending Unavailable Nicky Cavanaugh Referring Unavailable Nicky Cavanaugh Attending Unavailable Ranney, Christopher Primary Care Unavailable Peter Orta Attending Unavailable You, Peter Referring Unavailable Ranney, Christopher Primary Care Unavailable Ranney, Christopher Primary Care Unavailable Ranney, Christopher Referring Unavailable Ranney, Christopher Attending Unavailable Ranney, Christopher Primary Care Unavailable Ranney, Christopher Referring Unavailable Ranney, Christlillyer Attending Unavailable Ranney, Christopher Primary Care Unavailable Ranney, Christopher Referring Unavailable Ranney, Christopher Attending Unavailable Davida Joo Attending Unavailable [place], Joo Referring Unavailable Ranney, Christopher Primary Care Unavailable Davida, Joo Consulting Unavailable [facility] Primary Care Unavailable White, Nathaly L Admitting Unavailable Jopperi, Joo Attending Unavailable You, Peter Consulting Unavailable White, Nathaly L Consulting Unavailable Jopperi, Joo Consulting Unavailable Demiter, Filemon Referring Unavailable [facility] Primary Care Unavailable Cisco Dickens Attending Unavailable Davida, Joo Attending Unavailable Granados, Indu Referring Unavailable [facility] Primary Care Unavailable Granados, Indu Referring Unavailable Granados, Indu Consulting Unavailable [place], Joo Attending Unavailable [facility] Primary Care Unavailable White Nathaly L Attending Unavailable Granados, Indu Attending Unavailable Jopperi, Joo Referring Unavailable Demiter, Filemon Attending Unavailable [facility] Care [facility] Care Unavailable Sibilia, Peter V Referring Unavailable Sibilia, Peter V Attending Unavailable Demiter, Filemon Referring Unavailable [facility] Care Unavailable Demiter, Filemon Attending Unavailable Granados, Indu Attending Unavailable [facility] Referring Unavailable [facility] Care Unavailable Marisol Bowling Attending Unavailable [facility] Care Unavailable Nicky Cavanaugh Attending Unavailable Nicky Cavanaugh Referring Unavailable [facility] Care Unavailable Shivam FANS CLERK, Marie Referring Unavailable Shivam FANS CLERK, Marie Attending Unavailable [facility] Care Unavailable [facility] Primary Care Unavailable [facility] Referring Unavailable Rachidney, Brendaner Attending Unavailable Sibilia, Peter V Referring Unavailable Sibilia, Peter V Attending Unavailable [facility] Primary Care Unavailable Sibilia, Peter V Referring Unavailable Sibilia, Peter V Attending Unavailable [facility] Primary Care Unavailable Sibilia, Peter V Attending Unavailable Sibilia, Peter V Referring Unavailable [facility] Primary Care Unavailable Sibilia, Peter V Attending Unavailable Sibilia, Peter V Referring Unavailable [facility] Primary Care Unavailable [facility] Primary Care Unavailable [place], Christopher Attending Unavailable [place] Referring Unavailable Davida, Joo Referring Unavailable Davida, Joo Attending Unavailable [facility] Primary Care Unavailable [facility] Primary Care Unavailable Sibilia, Peter V Attending Unavailable Sibilia, Peter V Referring Unavailable Ranney, Christopher Primary Care Unavailable Sibilia, Peter V Attending Unavailable Sibilia, Peter V Referring Unavailable Suárez, Benigno Referring Unavailable Ranney, Christopher Primary Care Unavailable Suárez Benigno Attending Unavailable Ranney, Christopher Primary Care Unavailable Nathaly Romo Admitting Unavailable Joo Estes Attending Unavailable Joo Higuera Consulting Unavailable Peter Orta Unavailable Nathaly Romo Consulting Unavailable Jenni FANS CLERK, Jeanie Referring Unavailable Ranney, Christopher Primary Care Unavailable Jenni FANS CLERK, Jeanie Attending Unavailable [facility]orrow FANS CLERK, Jan Referring Unavailable Ranney, Christopher [facility], Jan Attending Unavailable Ranney, Christopher Primary Care Unavailable Ranney, Christlillyer Attending Unavailable Ranney, Christopher Referring Unavailable Sibilia, Peter V Consulting Unavailable Nicky Cavanaugh Attending Unavailable Nicky Cavanaugh Referring Unavailable Ranney, Christopher Primary Care Unavailable Sibilia, Peter V Attending Unavailable Sibilia, Peter V Referring Unavailable Ranney, Christopher Primary Care Unavailable Sibilia, Peter V Attending Unavailable Ranney, Christopher Primary Care Unavailable Sibilia, Peter V Referring Unavailable Ranney, Christopher Referring Unavailable Ranney, Christopher Primary Care Unavailable Ranney, Brendaner Attending Unavailable Ranney, Christopher Primary Care Unavailable Sibilia, Peter V Attending Unavailable Sibilia, Peter V Referring Unavailable Ranney, Christopher Primary Care Unavailable Ranney, Christlillyer Attending Unavailable Ranney, Christopher Referring Unavailable Sibilia, Peter V Attending Unavailable Sibilia, Peter V Referring Unavailable Ranney, Christopher Primary Care Unavailable Sibilia, Peter V Attending Unavailable Sibilia, Peter V Referring Unavailable Ranney, Christopher Primary Care Unavailable Niesha Suárezag Attending Unavailable Ranney, Christopher Primary Care Unavailable Ranney, Christopher Referring Unavailable Graham Mancini Attending Unavailable Ranney, Christopher Referring Unavailable Ranney, Christopher Primary Care Unavailable Marie Langley NP Attending Unavailable Ranney, Christopher Referring Unavailable Ranney, Christopher Primary Care Unavailable Ranney, Christopher Primary Care Unavailable Cisco Dickens Attending Unavailable Joo Higuera Attending Unavailable Ranney, Christopher Referring Unavailable Ranney, Christopher Primary Care Unavailable Indu Granados Attending Unavailable Ranney, Christopher Referring Unavailable Ranney, Christopher Primary Care Unavailable Nicky Cavanaugh Attending Unavailable Nicky Cavanaugh Referring Unavailable Cony [facility] Unavailable Shivam FANS CLERK, Marie Attending Unavailable Shivam FANS CLERKMarie Referring Unavailable [place] Primary Care Unavailable Nicky Cavanaugh Referring Unavailable Nicky Cavanaugh Attending Unavailable [facility] Unavailable [place], [facility] Primary Care Unavailable Siblis, Peter V Attending Unavailable Sibilia Peter V Referring Unavailable Allergies Allergy Classification Reported Allergen(s) Allergy Type Date of Onset Reaction(s) Facility (18 sources) acetaminophen / oxyCODONE; Translations: [OXYCODONE-ACETAMI NOPHEN] Drug Allergy 10-15-19 Other: See Comments [facility] Repository (20 sources) azithromycin; Translations: [AZITHROMYCIN] Drug Allergy 10-15-19 Rash, Itching [facility] Repository (20 sources) clindamycin; Translations: [CLINDAMYCIN] Drug Allergy 10-15-19 Hives [facility] Repository (20 sources) Sulfonamides (Antibiotic); Translations: [SULFA (SULFONAMIDE ANTIBIOTICS)] Propensity to adverse reactions to drug (disorder) 10-15-19 Rash, Itching [facility] Repository (20 sources) NITROFURANTOIN MACROCRYSTALLINE; Translations: [NITROFURANTOIN MACROCRYSTALLINE] Propensity to adverse reactions to drug (disorder) 10-15-19 Other: See Comments [facility] Repository (3 sources) OTHER; Translations: [OTHER] Propensity to adverse reactions (disorder) 10-15-19 AOF [facility] Repository (20 sources) Adhesive agent; Translations: [adhesive] Allergy to substance 05-13-19 SKIN TEARS. PAPER TAPE OK [facility] (20 sources) Atenolol Drug Allergy 05-13-19 Peripheal edema & cough [facility] (20 sources) Cefuroxime; Translations: [cefuroxime sodium] Drug Allergy 05-13-19 Rash [facility] (20 sources) Corticosteroids; Translations: [Corticosteroids (Glucocorticoids)] Propensity to adverse reactions 05-13-19 Other [facility] (20 sources) DULoxetine Drug Allergy 05-13-19 made me feel really sick [facility] (20 sources) Metoprolol Drug Allergy 05-13-19 Peripheral edema & cough [facility] (20 sources) oxyCODONE; Translations: [oxycodone HCl] Drug Allergy 05-13-19 Vomiting [facility] (15 sources) zenicef [Other] Propensity to adverse reactions 10-15-19 Rash, Itching [facility] (10 sources) Chlorhexidine Drug Allergy 05-17-19 [facility] (10 sources) Isopropyl Alcohol Drug Allergy 05-17-19 [facility] (9 sources) atorvastatin Drug Allergy 06-13-19 [facility] (1 source) Atenolol Drug Allergy 09-07-19 [facility] (1 source) atorvastatin Drug Allergy 09-07-19 [facility] (1 source) Chlorhexidine Drug Allergy 09-07-19 [facility] (1 source) DULoxetine Drug Allergy 09-07-19 [facility] (1 source) Isopropyl Alcohol Drug Allergy 09-07-19 [facility] (1 source) Metoprolol Drug Allergy 09-07-19 [facility] Repository Medications Current Medications Medication Drug Class(es) Dates Sig (Normalized) Sig (Original) bifidobacterium animalis [id number] unt / bifidobacterium longum [id number] unt / lactobacillus acidophilus [id number] unt oral capsule (15 sources) Start: 07-19-2019 take 1 capsule by mouth once daily L.acidoph-B.lac tis-B.longum (FLORAJEN3) 460 mg (7.5-6- 1.5 bill. cell) cap Indications: Acute cystitis with hematuria Take 1 capsule by mouth once daily. 30 capsule 07/19/2019 Active Comment on above: Take 1 capsule by [facility] once daily. cholecalciferol 0.05 mg oral capsule (20 sources) Vitamin D Start: 09-19-2020 Comment on above: Take by mouth. clobetasol propionate 0.5 mg/ml topical cream (9 sources) Corticosteroid Start: 10-29-2022 clobetasol (TEMOVATE) 0.05 % cream Apply to affected area 2x/day for 2 weeks, then 1x/day for a week. 60 g 10/29/2022 Active Start: 12-23-2021 End: 01-08-2022 clobetasol (TEMOVATE) 0.05 % ointment Apply 1 application to affected area twice daily. TO AFFECTED AREA. 30 g 1 12/23/2021 01/08/2022 Discontinued (Course of therapy completed) Comment on above: Apply 1 application to affected area twice daily. TO AFFECTED AREA. Apply to affected ar ea 2x/day for 2 weeks, then 1x/day for a week. docosahexaenoic acid/epa (FISH OIL ORAL) (15 sources) docosahexaenoic acid/epa (FISH OIL ORAL) Take by mouth. Active docosahexaenoic acid/epa (FISH OIL ORAL) Take by mouth. 0 Active Comment on above: Take by mouth. esomeprazole 40 mg delayed r elease oral capsule (20 sources) Proton Pump Inhibitor Start: 04-02-2020 End: 10-13-2020 Start: 01-25-2019 End: 12-20-2019 Comment on above: Take 40 mg by mouth DAILY (6 AM). Fluticasone Propion-Salmeter ol (20 sources) Corticosteroid, beta2-Adrenergic Agonist Start: 12-07-2023 Start: 11-29-2023 End: 12-07-2023 Start: 12-10-2022 End: 11-29-2023 Start: 12-10-2022 take 1 puff(s) by in halation twice daily Fluticasone Propion-Salmeterol (Advair Hfa) 230-21 mcg/actuation HFA aerosol inhaler Active 2 PUFF INHALATION TWICE A DAY 3 December 10, 2022 10:31am Start: 12-10-2022 take 1 puff(s) by in halation twice daily Fluticasone Propion-Salmeterol (Advair Hfa) 230-21 mcg/actuation HFA aerosol inhaler Active 2 PUFF INHALATION TWICE A DAY 3 December 10, 2022 9:31am Start: 05-27-2022 End: 12-10-2022 Start: 05-27-2022 End: 12-10-2022 take 1 puff(s) by inhalation twice daily Fluticasone Propion-Salmeterol (Advair Hfa) 230-21 mcg/actuation HFA aerosol inhaler Discontinued 2 PUFF INHALATION TWICE A DAY 3 May 27, 2022 11:05am December 10, 2022 10:33am Start: 05-27-2022 End: 12-10-2022 take 1 puff(s) by inhalation twice daily Fluticasone Propion-Salmeterol (Advair Hfa) 230-21 mcg/actuation HFA aerosol inhaler Discontinued 2 PUFF INHALATION TWICE A DAY 3 May 27, 2022 10:05am December 10, 2022 9:33am Start: 05-27-2022 take 1 puff(s) by in halation twice daily Fluticasone Propion-Salmeterol (Advair Hfa) 230-21 mcg/actuation HFA aerosol inhaler Active 2 PUFF INHALATION TWICE A DAY 3 May 27, 2022 11:05am Start: 03-01-2022 End: 05-27-2022 Start: 03-01-2022 End: 05-27-2022 take 1 puff(s) by inhalation twice daily Fluticasone Propion-Salmeterol (Advair Hfa) 230-21 mcg/actuation HFA aerosol inhaler Discontinued 2 PUFF INHALATION TWICE A DAY 3 March 01, 2022 11:03am May 27, 2022 10:05am Start: 03-01-2022 End: 05-27-2022 take 1 puff(s) by inhalation twice daily Fluticasone Propion-Salmeterol (Advair Hfa) 230-21 mcg/actuation HFA aerosol inhaler Discontinued 2 PUFF INHALATION TWICE A DAY 3 March 01, 2022 12:03pm May 27, 2022 11:05am Start: 03-01-2022 take 1 puff(s) by in halation twice daily Fluticasone Propion-Salmeterol (Advair Hfa) 230-21 mcg/actuation HFA aerosol inhaler Active 2 PUFF INHALATION TWICE A DAY 3 March 01, 2022 12:03pm Start: 03-01-2022 take 1 puff(s) by in halation twice daily Fluticasone Propion-Salmeterol (Advair Hfa) 230-21 mcg/actuation HFA aerosol inhaler Active 2 PUFF INHALATION TWICE A DAY 3 March 01, 2022 11:03am Start: 06-26-2021 End: 03-01-2022 Start: 06-26-2021 End: 03-01-2022 take 1 puff(s) by inhalation twice daily Fluticasone Propion-Salmeterol (Advair Hfa) 230-21 mcg/actuation HFA aerosol inhaler Discontinued 2 PUFF INHALATION TWICE A DAY June 26, 2021 3:39pm March 01, 2022 12:05pm Start: 06-26-2021 End: 03-01-2022 take 1 puff(s) by inhalation twice daily Fluticasone Propion-Salmeterol (Advair Hfa) 230-21 mcg/actuation HFA aerosol inhaler Discontinued 2 PUFF INHALATION TWICE A DAY June 26, 2021 2:39pm March 01, 2022 11:05am Start: 06-26-2021 take 1 puff(s) by in halation twice daily Fluticasone Propion-Salmeterol (Advair Hfa) 230-21 mcg/actuation HFA aerosol inhaler Active 2 PUFF INHALATION TWICE A DAY June 26, 2021 2:39pm Start: 06-26-2021 Start: 06-26-2021 take 1 puff(s) by in halation twice daily Fluticasone Propion-Salmeterol (Advair Hfa) 230-21 mcg/actuation HFA aerosol inhaler Active 2 PUFF INHALATION TWICE A DAY June 26, 2021 3:39pm Start: 02-19-2021 End: 06-26-2021 take 1 puff(s) by inhalation twice daily Fluticasone Propion-Salmeterol (Advair Hfa) 230-21 mcg/actuation HFA aerosol inhaler Discontinued 2 PUFF INHALATION TWICE A DAY 3 February 19, 2021 8:58am June 26, 2021 2:39pm Start: 02-19-2021 End: 06-26-2021 Start: 02-19-2021 End: 06-26-2021 take 1 puff(s) by inhalation twice daily Fluticasone Propion-Salmeterol (Advair Hfa) 230-21 mcg/actuation HFA aerosol inhaler Discontinued 2 PUFF INHALATION TWICE A DAY 3 February 19, 2021 9:58am June 26, 2021 3:39pm Start: 02-19-2021 take 1 puff(s) by in halation twice daily Fluticasone Propion-Salmeterol (Advair Hfa) 230-21 mcg/actuation HFA aerosol inhaler Active 2 PUFF INHALATION TWICE A DAY 3 February 19, 2021 9:58am Start: 03-11-2020 End: 02-19-2021 take 1 puff(s) by inhalation twice daily Fluticasone Propion-Salmeterol (Advair Hfa) 230-21 mcg/actuation HFA aerosol inhaler Discontinued 2 PUFF INHALATION TWICE A DAY 3 March 11, 2020 10:40am February 19, 2021 8:59am Start: 03-11-2020 End: 02-19-2021 Start: 03-11-2020 End: 02-19-2021 take 1 puff(s) by inhalation twice daily Fluticasone Propion-Salmeterol (Advair Hfa) 230-21 mcg/actuation HFA aerosol inhaler Discontinued 2 PUFF INHALATION TWICE A DAY 3 March 11, 2020 11:40am February 19, 2021 9:59am Start: 03-11-2020 End: 03-11-2020 take 1 puff(s) by inhalation twice daily Fluticasone Propion-Salmeterol (Advair Hfa) 230-21 mcg/actuation HFA aerosol inhaler Discontinued 2 PUFF INHALATION TWICE A DAY 3 March 11, 2020 8:57am March 11, 2020 10:40am Start: 03-11-2020 End: 03-11-2020 Start: 03-11-2020 End: 03-11-2020 take 1 puff(s) by inhalation twice daily Fluticasone Propion-Salmeterol (Advair Hfa) 230-21 mcg/actuation HFA aerosol inhaler Discontinued 2 PUFF INHALATION TWICE A DAY 3 March 11, 2020 9:57am March 11, 2020 11:40am Start: 02-05-2020 End: 03-11-2020 Start: 02-05-2020 End: 03-11-2020 take 1 puff(s) by inhalation twice daily Fluticasone Propion-Salmeterol (Advair Hfa) 230-21 mcg/actuation HFA aerosol inhaler Discontinued 2 PUFF INHALATION TWICE A DAY 1 February 05, 2020 3:09pm March 11, 2020 9:58am Start: 02-05-2020 End: 03-11-2020 take 1 puff(s) by inhalation twice daily Fluticasone Propion-Salmeterol (Advair Hfa) 230-21 mcg/actuation HFA aerosol inhaler Discontinued 2 PUFF INHALATION TWICE A DAY 1 February 05, 2020 12:00am March 11, 2020 8:58am Start: 02-05-2020 End: 03-11-2020 take 1 puff(s) by inhalation twice daily Fluticasone Propion-Salmeterol (Advair Hfa) 230-21 mcg/actuation HFA aerosol inhaler Discontinued 2 PUFF INHALATION TWICE A DAY February 05, 2020 1:00am March 11, 2020 9:58am Start: 02-05-2020 End: 03-11-2020 Start: 12-09-2019 End: 04-02-2020 Start: 12-09-2019 End: 04-02-2020 take 1 puff(s) by inhalation twice daily Fluticasone Propion-Salmeterol Discontinued 2 PUFF INHALATION TWICE A DAY December 09, 2019 1:08am April 02, 2020 3:30pm Start: 12-09-2019 End: 04-02-2020 take 1 puff(s) by inhalation twice daily Fluticasone Propion-Salmeterol Discontinued 2 PUFF INHALATION TWICE A DAY December 08, 2019 11:00pm April 02, 2020 2:30pm Start: 12-09-2019 End: 04-02-2020 take 1 puff(s) by inhalation twice daily Fluticasone Propion-Salmeterol Discontinued 2 PUFF INHALATION TWICE A DAY December 09, 2019 12:00am April 02, 2020 3:30pm Start: 12-09-2019 End: 04-02-2020 Start: 05-18-2019 End: 11-09-2019 take 1 puff(s) by inhalation twice daily Fluticasone Propion-Salmeterol Discontinued 2 PUFF INHALATION TWICE A DAY May 18, 2019 2:03pm November 09, 2019 1:55pm Start: 05-18-2019 End: 11-09-2019 Start: 05-18-2019 End: 11-09-2019 take 1 puff(s) by inhalation twice daily Fluticasone Propion-Salmeterol Discontinued 2 PUFF INHALATION TWICE A DAY May 18, 2019 3:03pm November 09, 2019 2:55pm Start: 05-18-2019 End: 05-18-2019 take 1 puff(s) by inhalation twice daily Fluticasone Propion-Salmeterol Discontinued 2 PUFF INHALATION TWICE A DAY May 18, 2019 1:05pm May 18, 2019 2:04pm Start: 05-18-2019 End: 05-18-2019 Start: 05-18-2019 End: 05-18-2019 take 1 puff(s) by inhalation twice daily Fluticasone Propion-Salmeterol Discontinued 2 PUFF INHALATION TWICE A DAY May 18, 2019 2:05pm May 18, 2019 3:04pm Start: 05-02-2019 End: 05-18-2019 take 1 puff(s) by inhalation twice daily Fluticasone Propion-Salmeterol Discontinued 2 PUFF INHALATION TWICE A DAY May 02, 2019 9:38am May 18, 2019 1:05pm Start: 05-02-2019 End: 05-18-2019 Start: 05-02-2019 End: 05-18-2019 take 1 puff(s) by inhalation twice daily Fluticasone Propion-Salmeterol Discontinued 2 PUFF INHALATION TWICE A DAY May 02, 2019 10:38am May 18, 2019 2:05pm Start: 10-23-2018 End: 05-02-2019 take 1 puff(s) by inhalation twice daily Fluticasone Propion-Salmeterol Discontinued 2 PUFF INHALATION TWICE A DAY October 23, 2018 9:19am May 02, 2019 9:39am Start: 10-23-2018 End: 05-02-2019 Start: 10-23-2018 End: 05-02-2019 take 1 puff(s) by inhalation twice daily Fluticasone Propion-Salmeterol Discontinued 2 PUFF INHALATION TWICE A DAY 12 October 23, 2018 10:19am May 02, 2019 10:39am Start: 04-17-2018 End: 10-23-2018 take 1 puff(s) by inhalation twice daily Fluticasone Propion-Salmeterol Discontinued 2 PUFF INHALATION TWICE A DAY April 17, 2018 10:19am October 23, 2018 9:20am Start: 04-17-2018 End: 10-23-2018 Start: 04-17-2018 End: 10-23-2018 take 1 puff(s) by inhalation twice daily Fluticasone Propion-Salmeterol Discontinued 2 PUFF INHALATION TWICE A DAY April 17, 2018 11:19am October 23, 2018 10:20am Start: 02-15-2018 End: 04-17-2018 take 1 puff(s) by inhalation twice daily Fluticasone Propion-Salmeterol Discontinued 2 PUFF INHALATION TWICE A DAY February 15, 2018 1:07am April 17, 2018 10:20am Start: 02-15-2018 End: 04-17-2018 Start: 02-15-2018 End: 04-17-2018 take 1 puff(s) by inhalation twice daily Fluticasone Propion-Salmeterol Discontinued 2 PUFF INHALATION TWICE A DAY February 15, 2018 2:07am April 17, 2018 11:20am Start: 01-02-2018 End: 02-15-2018 take 1 puff(s) by inhalation twice daily Fluticasone Propion-Salmeterol (Advair Hfa) 230-21 mcg/actuation HFA aerosol inhaler Discontinued 2 PUFF INHALATION TWICE A DAY January 02, 2018 1:49pm February 15, 2018 1:07am Start: 01-02-2018 End: 02-15-2018 Start: 01-02-2018 End: 02-15-2018 take 1 puff(s) by inhalation twice daily Fluticasone Propion-Salmeterol (Advair Hfa) 230-21 mcg/actuation HFA aerosol inhaler Discontinued 2 PUFF INHALATION TWICE A DAY January 02, 2018 2:49pm February 15, 2018 2:07am Start: 12-15-2017 End: 01-02-2018 Start: 12-15-2017 End: 01-02-2018 take 1 puff(s) by inhalation twice daily Fluticasone Propion-Salmeterol (Advair Hfa) 230-21 mcg/actuation HFA aerosol inhaler Discontinued 2 PUFF INHALATION TWICE A DAY 1 December 15, 2017 1:49pm January 02, 2018 2:50pm Start: 12-15-2017 End: 01-02-2018 take 1 puff(s) by inhalation twice daily Fluticasone Propion-Salmeterol (Advair Hfa) 230-21 mcg/actuation HFA aerosol inhaler Discontinued 2 PUFF INHALATION TWICE A DAY 1 December 14, 2017 11:00pm January 02, 2018 1:50pm Start: 12-15-2017 End: 01-02-2018 take 1 puff(s) by inhalation twice daily Fluticasone Propion-Salmeterol (Advair Hfa) 230-21 mcg/actuation HFA aerosol inhaler Discontinued 2 PUFF INHALATION TWICE A DAY 1 December 15, 2017 12:00am January 02, 2018 2:50pm Start: 12-15-2017 End: 01-02-2018 Start: 10-20-2017 End: 10-20-2017 Fluticasone Propion-Salmeter ol (Advair Diskus) 500-50 mcg/dose blister with device Discontinued 1 INH INHALATION TWICE A DAY 3 October 20, 2017 2:24pm October 20, 2017 3:12pm Start: 10-20-2017 End: 10-20-2017 Start: 10-20-2017 End: 10-20-2017 Fluticasone Propion-Salmeter ol (Advair Diskus) 500-50 mcg/dose blister with device Discontinued 1 INH INHALATION TWICE A DAY 3 October 20, 2017 3:24pm October 20, 2017 4:12pm Start: 10-20-2017 End: 10-20-2017 Start: 10-20-2017 End: 10-20-2017 Fluticasone Propion-Salmeter ol (Advair Diskus) 500-50 mcg/dose blister with device Discontinued 1 INH INHALATION TWICE A DAY 60 October 20, 2017 12:57pm October 20, 2017 3:24pm Start: 10-20-2017 End: 10-20-2017 Fluticasone Propion-Salmeter ol (Advair Diskus) 500-50 mcg/dose blister with device Discontinued 1 INH INHALATION TWICE A DAY 60 October 19, 2017 11:00pm October 20, 2017 2:24pm Start: 10-20-2017 End: 10-20-2017 Fluticasone Propion-Salmeter ol (Advair Diskus) 500-50 mcg/dose blister with device Discontinued 1 INH INHALATION TWICE A DAY 60 October 20, 2017 12:00am October 20, 2017 3:24pm Start: 10-20-2017 End: 10-20-2017 Start: 01-09-2013 End: 03-08-2017 Start: 01-09-2013 End: 03-08-2017 take 1 puff(s) by inhalation twice daily Fluticasone Propion-Salmeterol Discontinued 1 PUFF INHALATION TWICE A DAY January 09, 2013 10:14am March 08, 2017 1:15pm Start: 01-09-2013 End: 03-08-2017 take 1 puff(s) by inhalation twice daily Fluticasone Propion-Salmeterol Discontinued 1 PUFF INHALATION TWICE A DAY January 09, 2013 12:00am March 08, 2017 12:15pm Start: 01-09-2013 End: 03-08-2017 take 1 puff(s) by inhalation twice daily Fluticasone Propion-Salmeterol Discontinued 1 PUFF INHALATION TWICE A DAY January 09, 2013 1:00am March 08, 2017 1:15pm Start: 01-09-2013 End: 03-08-2017 take 2 puff(s) by in halation twice daily fluticasone-salmeterol HFA (ADVAIR) 230-21 mcg/actuation inhaler Inhale 2 Puffs as instructed twice daily. Active take 1 puff(s) by in halation twice daily fluticasone-salmeterol (ADVAIR) 500-50 mcg/dose dsdv Inhale 1 Puff as instructed twice daily. Active take 1 puff(s) by in halation twice daily fluticasone-salmeterol (ADVAIR) 500-50 mcg/dose dsdv Inhale 1 Puff as instructed twice daily. 0 Active take 1 puff(s) by in halation twice daily fluticasone-salmeterol (ADVAIR DISKUS) 500-50 mcg/dose dsdv Inhale 1 Puff as instructed twice daily. 0 Active take 2 puff(s) by in halation twice daily fluticasone-salmeterol HFA (ADVAIR) 230-21 mcg/actuation inhaler Inhale 2 Puffs as instructed twice daily. 0 Active Comment on above: Inhale 1 Puff as ins tructed twice daily. Inhale 2 Puffs as in structed twice daily. ipratropium bromide 0.042 mg/actuat metered dose nasal spray (20 sources) Anticholinergic Start: 03-10-2023 Start: 03-10-2023 Ipratropium Br omide Active INTRANASAL THREE TIMES A DAY March 10, 2023 1:00am Start: 03-10-2023 Ipratropium Br omide Active INTRANASAL THREE TIMES A DAY March 10, 2023 12:00am Start: 06-26-2021 End: 03-10-2023 Start: 06-26-2021 End: 03-10-2023 take 1 spray(s) nasal route twice daily Ipratropium [place] Discontinued 2 SPRAY INTRANASAL TWICE A DAY March 01, 2022 12:05pm March 10, 2023 11:44am administer into each nostril Start: 05-22-2021 End: 06-26-2021 take 1 spray(s) nasal route twice daily Ipratropium [place] Discontinued 2 SPRAY INTRANASAL TWICE A DAY May 22, 2021 9:27am June 26, 2021 3:39pm administer into each nostril Start: 05-22-2021 take 1 spray(s) nasa l route twice daily Ipratropium [place] Active 2 SPRAY INTRANASAL TWICE A DAY May 22, 2021 9:27am administer into each nostril Start: 05-22-2021 End: 06-26-2021 take 1 spray(s) nasal route twice daily Ipratropium [place] Discontinued 2 SPRAY INTRANASAL TWICE A DAY May 21, 2021 11:00pm June 26, 2021 2:39pm administer into each nostril Start: 05-22-2021 End: 06-26-2021 take 1 spray(s) nasal route twice daily Ipratropium [place] Discontinued 2 SPRAY INTRANASAL TWICE A DAY May 22, 2021 12:00am June 26, 2021 3:39pm administer into each nostril L. acidophilus/Bifid. animal is (DAILY PROBIOTIC ORAL) (15 sources) L. acidophilus/B ifid. animalis (DAILY PROBIOTIC ORAL) Take by mouth. Active L. acidophilus/B ifid. animalis (DAILY PROBIOTIC ORAL) Take by mouth. 0 Active Comment on above: Take by mouth. Lactobacillus Combination No.8 (20 sources) Start: 03-25-2021 Lactobacillus Combination No.8 Active 1 CELL PO DAILY March 25, 2021 12:26pm Start: 03-25-2021 End: 12-03-2021 Lactobacillus Combination No .8 Discontinued 1 CELL PO DAILY March 25, 2021 1:00am December 03, 2021 1:02pm Start: 03-25-2021 End: 12-03-2021 Lactobacillus Combination No .8 Discontinued 1 CELL PO DAILY March 25, 2021 12:00am December 03, 2021 12:02pm Start: 03-25-2021 Lactobacillus Combination No.8 Active 1 CELL PO DAILY March 25, 2021 1:00am latanoprost 0.05 mg/ml ophth almic solution (17 sources) Prostaglandin Analog Start: 03-10-2023 Start: 03-10-2023 Latanoprost Ac tive DRP OPHTHALMIC EVERY EVENING March 10, 2023 1:00am Start: 09-27-2022 latanoprost (X ALATAN) 0.005 % ophthalmic solution 09/27/2022 Active lidocaine 0.05 mg/mg medicated patch (20 sources) Antiarrhythmic, Amide Local Anesthetic Start: 07-14-2021 apply 1 dose topically every twelve hours at bedtime Lidocaine Active 1 PATCH TOPICAL 1 time daily July 14, 2021 5:33pm apply to the painful area at bedtime and remove the patch in 12 H Start: 07-06-2021 End: 07-14-2021 Start: 07-06-2021 End: 07-14-2021 apply 1 dose topically once daily Lidocaine Discontinued 1 PATCH TOPICAL DAILY July 06, 2021 4:24pm July 14, 2021 5:33pm Start: 07-06-2021 End: 07-14-2021 melatonin 3 mg oral tablet (15 sources) take 3 mg by mouth once daily at bedtime melatonin 3 mg Take 3 mg by mouth daily at bedtime. Active Comment on above: Take 3 mg by mouth d aily at bedtime. ondansetron 4 mg disintegrating oral tablet (20 sources) Serotonin-3 Receptor Antagonist Start: Start: 01-24-2024 End: 01-26-2024 Start: 09-23-2022 ondansetron or ally disintegrating (ZOFRAN ODT) 4 mg disintegrating tablet 09/23/2022 Active Start: 09-19-2020 End: 03-25-2021 microencapsulated potassium chloride 20 meq extended release oral tablet (20 sources) Start: 12-20-2019 End: 10-13-2020 Start: 12-20-2019 End: 10-13-2020 take 20 mEq by mouth once daily Potassium Chloride Dis continued 20 MEQ PO DAILY December 20, 2019 1:00am October 13, 2020 2:57pm Start: 06-24-2017 End: 01-25-2019 take 40 mEq by mouth once daily Potassium Chloride Dis continued 40 MEQ PO daily February 15, 2018 2:07am January 25, 2019 12:56pm Dose decreased by Dr. Donnelly Start: 02-09-2017 End: 01-25-2019 Start: 02-09-2017 End: 06-24-2017 take 40 mEq by mouth twice daily at mealtime Potassium Chloride Discontinued 40 MEQ PO TWICE DAILY WITH MEALS February 09, 2017 1:00am June 24, 2017 4:18pm Comment on above: Take 20 mEq by mouth twice daily. rosuvastatin calcium 5 mg or al tablet (9 sources) HMG-CoA Reductase Inhibitor Start: 06-08-2024 Semaglutide (Weight Loss) (20 sources) Start: 09-28-2023 Start: 07-19-2023 End: 09-28-2023 semaglutide, weight loss, (WEGOVY) 1 mg/0.5 mL pen injector (2 sources) Start: 09-15-2023 inject 1 mg by subcutaneous injection every week semaglutide, weight loss, (WEGOVY) 1 mg/0.5 mL pen injector Inject 1 mg subcutaneously one time a week. Compound formula 09/15/2023 Active Start: 09-15-2023 inject 1 mg by subcu taneous injection every week semaglutide, weight loss, (WEGOVY) 1 mg/0.5 mL pen injector Inject 1 mg subcutaneously one time a week. 09/15/2023 Active Completed/Discontinued Medications Medication Drug Class(es) Dates Sig (Normalized) Sig (Original) acetaminophen 500 mg oral tablet (20 sources) Start: 06-26-2021 End: 07-14-2021 Start: 12-06-2016 End: 12-30-2016 Start: 12-06-2016 End: 12-30-2016 take 1 tablet by mouth twice daily Acetaminophen (Tylenol Arthritis Pain) 650 MG Tablet.Er Discontinued 650 MG PO TWICE A DAY 0 December 07, 2016 3:00pm December 30, 2016 11:46pm Start: 01-12-2013 End: 02-20-2013 take 2 tablets by [facility] twice daily acetaminophen (TYLENOL) 500 mg tablet Take 1,000 mg by mouth twice daily. Active Comment on above: Take 1,300 mg by audie th at bedtime as needed. Take 1,000 mg by audie th twice daily. acetaminophen 325 mg / HYDRO codone bitartrate 5 mg oral tablet (20 sources) Opioid Agonist Start: 04-01-2021 End: 06-26-2021 Start: 04-01-2021 End: 06-26-2021 Start: 09-19-2020 End: 03-25-2021 Start: 09-19-2020 End: 03-25-2021 take 1 tablet by mouth every six hours Hydrocodone-Acetaminophen Discontinued 1 TABLET PO EVERY 6 HOURS September 19, 2020 12:00am March 25, 2021 12:27pm Start: 09-19-2020 End: 03-25-2021 Start: 12-30-2016 End: 10-29-2022 take 1 tablet by mouth every six hours Hydrocodone-Acetaminophen ([place]) 5-325 mg Tablet Discontinued 1 TABLET PO EVERY 6 HOURS April 01, 2021 1:00am June 26, 2021 12:20pm Comment on above: Take 1-2 tablets by mouth every 6 hours as needed. [id number] 200 actuat albuter ol 0.09 mg/actuat metered dose inhaler (20 sources) beta2-Adrenergic Agonist Start: 03-01-2022 End: 09-14-2023 Start: 03-01-2022 End: 12-10-2022 take 1 puff(s) by inhalation every four hours Albuterol Sulfate (Ventolin Hfa) 90 mcg/actuation HFA aerosol inhaler Discontinued 2 PUFF INHALATION Q4H 3 March 11, 2022 1:46pm May 27, 2022 11:05am Start: 10-08-2020 End: 02-19-2021 Start: 10-08-2020 End: 02-19-2021 take 1 puff(s) by inhalation every four hours Albuterol Sulfate Discontinued 2 PUFF INHALATION Q4H 8.5 October 08, 2020 12:00am February 19, 2021 9:59am administer with spacer Start: 10-08-2020 End: 02-19-2021 Start: 02-06-2020 End: 04-02-2020 Start: 02-06-2020 End: 04-02-2020 take 90 ug by inhalation every four hours Albuterol Sulfate (Proair Respiclick) 90 mcg/actuation aerosol powdr breath activated Discontinued 2 INH INHALATION Q4H 3 March 27, 2020 11:56am April 02, 2020 3:29pm administer with spacer Start: 10-23-2018 End: 02-06-2020 Start: 10-23-2018 End: 02-06-2020 take 1 puff(s) by inhalation every four hours as needed Albuterol Sulfate Discontinued 2 PUFF INHALATION EVERY 4 HOURS NEEDED 1 November 16, 2019 3:07pm February 06, 2020 4:23pm Start: 10-23-2018 End: 02-06-2020 Start: 02-27-2018 End: 10-23-2018 Start: 02-27-2018 End: 10-23-2018 take 1 puff(s) by inhalation every four hours as needed Albuterol Sulfate Discontinued 2 PUFF INHALATION EVERY 4 HOURS NEEDED February 27, 2018 10:48am October 23, 2018 10:20am Start: 02-27-2018 End: 02-27-2018 Start: 02-27-2018 End: 02-27-2018 take 1 puff(s) by inhalation every four hours as needed Albuterol Sulfate Discontinued 2 PUFF INHALATION EVERY 4 HOURS NEEDED February 27, 2018 10:35am February 27, 2018 10:49am Start: 10-05-2017 End: 10-23-2018 Start: 10-05-2017 End: 10-23-2018 take 1 puff(s) by inhalation every four hours as needed Albuterol Sulfate Discontinued 2 PUFF INHALATION EVERY 4 HOURS NEEDED 1 Eileen 14th, 2019 10:48am October 23, 2018 10:20am Start: 10-05-2017 End: 10-23-2018 Start: 06-24-2017 End: 10-05-2017 Start: 06-24-2017 End: 10-05-2017 take 1 puff(s) by inhalation every four hours as needed Albuterol Sulfate Discontinued 2 PUFF INHALATION EVERY 4 HOURS NEEDED June 24, 2017 4:23pm October 05, 2017 3:10pm Start: 06-24-2017 End: 10-05-2017 Start: 04-24-2017 End: 06-24-2017 Start: 04-24-2017 End: 06-24-2017 take 1 puff(s) by inhalation every four hours as needed Albuterol Sulfate Discontinued 2 PUFF INHALATION EVERY 4 HOURS NEEDED April 24, 2017 1:00am June 24, 2017 4:25pm Start: 04-24-2017 End: 06-24-2017 Start: 01-09-2013 End: 06-24-2017 Start: 01-09-2013 End: 06-24-2017 take 1 puff(s) by inhalation every four hours as needed Albuterol Sulfate Discontinued 2 PUFF INHALATION EVERY 4 HOURS NEEDED January 09, 2013 10:14am June 24, 2017 3:58pm Start: 01-09-2013 End: 05-17-2022 Start: 01-09-2013 End: 05-17-2022 take 2.5 mg by inhalation every four hours as needed for wheezing Albuterol Sulfate Discontinued 2.5 MG INHALATION EVERY 4 HOURS NEEDED 180 March 17, 2020 12:47pm March 01, 2022 12:05pm Use q4 hours and PRN for wheezing Start: 01-09-2013 End: 03-17-2020 take 2.5 mg by inhalation every six hours Albuterol Sulfate Discontinued 2.5 MG INHALATION EVERY 6 HOURS WHILE AWAKE April 24, 2017 1:00am June 24, 2017 3:58pm Start: 01-09-2013 End: 06-24-2017 take 1 puff(s) by inhalation every four hours as needed Albuterol Sulfate Discontinued 2 PUFF INHALATION EVERY 4 HOURS NEEDED January 09, 2013 12:00am June 24, 2017 2:58pm Start: 01-09-2013 End: 06-24-2017 take 1 puff(s) by inhalation every four hours as needed Albuterol Sulfate Discontinued 2 PUFF INHALATION EVERY 4 HOURS NEEDED January 09, 2013 1:00am June 24, 2017 3:58pm take 2 puff(s) by in halation every four hours as needed albuterol HFA (PROVENTIL HFA, VENTOLIN HFA) 90 mcg/actuation inhaler Inhale 2 Puffs as instructed every 4 hours as needed. Active Comment on above: Use 2.5 mg via nebul izer every 4 hours as needed. Inhale 2 Puffs as in structed every 4 hours as needed. albuterol 0.833 mg/ml / ipratropium bromide 0.167 mg/ml inhalation solution (20 sources) Anticholinergic, beta2-Adrenergic Agonist Start: 11-22-2016 End: 12-06-2016 Start: 11-22-2016 End: 12-06-2016 take 1 mL by inhalation every four hours Ipratropium-Albuterol Discontinued 3 ML INHALATION EVERY 4 HOURS WHILE AWAKE November 22, 2016 12:00am December 06, 2016 6:09pm Start: 11-22-2016 End: 12-06-2016 End: 10-29-2022 take 3 mL by inhalation every four hours as needed ipratropium-albuterol (DUONEB) 0.5 mg-3 mg(2.5 mg base)/3 mL nebu Inhale 3 mL as instructed every 4 hours as needed. 0 10/29/2022 Discontinued Comment on above: Inhale 3 mL as instr ucted every 4 hours as needed. allopurinol 100 mg oral tablet (20 sources) Xanthine Oxidase Inhibitor Start: 12-09-2019 End: 04-02-2020 amoxicillin 875 mg oral tablet (20 sources) Penicillin-class Antibacterial Start: 04-24-2017 End: 06-16-2017 amoxicillin 875 mg / clavulanate 125 mg oral tablet (10 sources) Penicillin-class Antibacterial Start: 01-28-2024 End: 05-03-2024 apixaban 5 mg oral tablet (20 sources) Factor Xa Inhibitor Start: 12-30-2016 End: 05-16-2024 Comment on above: Take 1 tablet by audie th twice daily. ascorbic acid 500 mg oral tablet (20 sources) Vitamin C Start: 09-22-2020 End: 10-13-2020 atorvastatin 10 mg oral tablet (20 sources) HMG-CoA Reductase Inhibitor Start: 05-31-2022 End: 12-21-2022 atorvastatin (LIPITOR) 10 mg tablet 09/17/2022 Active Start: 12-07-2021 End: 05-31-2022 Atorvastatin Discontinued 0 .ROUTE .COMPLEX 90 February 25, 2022 4:42pm May 31, 2022 10:09am TAKE 1 TABLET AT BEDTIME Start: 11-27-2020 End: 06-08-2024 Start: 11-27-2020 End: 12-07-2021 take 1 tablet by mouth at bedtime Atorvastatin (Lipitor) 10 mg tablet Discontinued 10 MG PO AT BEDTIME June 26, 2021 3:39pm December 03, 2021 1:04pm Start: 11-27-2020 End: 06-26-2021 azelastine hydrochloride 0.1 37 mg/actuat metered dose nasal spray (20 sources) Histamine-1 Receptor Antagonist Start: 10-19-2019 End: 08-09-2020 Start: 10-19-2019 End: 08-09-2020 take 1 spray(s) nasal route twice daily Azelastine Discontinued 2 SPRAY INTRANASAL TWICE A DAY March 17, 2020 12:48pm August 09, 2020 3:23pm administer into each nostril budesonide 0.25 mg/ml inhala tion suspension (20 sources) Corticosteroid Start: 04-19-2017 End: 06-24-2017 Start: 04-19-2017 End: 06-24-2017 take 0.5 mg by inhalation every twelve hours Budesonide Discontinued 0.5 MG INHALATION Q12H 60 April 19, 2017 1:00am June 24, 2017 4:25pm 24 hr buPROPion hydrochlorid e 150 mg extended release oral tablet (20 sources) Aminoketone Start: 2017 End: 06-16-2017 cefdinir 300 mg oral capsule (20 sources) Cephalosporin Antibacterial Start: 01-07-2024 End: 01-12-2024 Start: 08-06-2023 End: 09-09-2023 cephalexin 500 mg oral capsu le (20 sources) Cephalosporin Antibacterial Start: 07-22-2023 End: 08-04-2023 Start: 01-12-2022 End: 01-22-2022 take 1 capsule by mouth four times daily cephALEXin (KEFLEX) 500 mg capsule Take 1 capsule by mouth four times daily for 10 days. 40 capsule 0 01/12/2022 01/22/2022 Active Comment on above: Take 1 capsule by mo [facility] four times daily for 10 days. ciprofloxacin 500 mg oral tablet (10 sources) Quinolone Antimicrobial Start: 07-19-2023 End: 08-04-2023 clotrimazole 10 mg/ml topical cream (11 sources) Azole Antifungal Start: 12-30-2016 End: 10-29-2022 clotrimazole (LOTRIMIN, CLOTRIM) 1 % cream Apply 1 application to affected area twice daily. 0 12/30/2016 10/29/2022 Discontinued Comment on above: Apply 1 application to affected area twice daily. 24 hr dilTIAZem hydrochloride 180 mg extended release oral capsule (20 sources) Calcium Channel Matilde Start: 11-22-2016 End: 05-16-2024 Start: 11-22-2016 End: 04-01-2021 take 180 mg by mouth once daily Diltiazem Hcl Discontinued 180 MG PO DAILY March 11, 2020 2:30pm September 22, 2020 12:37pm Start: 11-22-2016 End: 04-01-2021 take 360 mg by mouth once daily Diltiazem Hcl Discontinued 360 MG PO DAILY June 24, 2017 4:13pm July 12, 2017 5:09pm Comment on above: Take 2 capsules by m [facility] once daily. docusate sodium 50 mg / sennosides, senior care 8.6 mg oral tablet (20 sources) Start: 06-26-2021 End: 07-14-2021 Start: 06-26-2021 End: 07-14-2021 take 2 tablets by mouth twice daily Sennosides-Docusate Sodium (Stool Softener-Stimulant Laxat) 8.6-50 mg tablet Discontinued 2 TABLET PO TWICE A DAY June 26, 2021 3:39pm July 14, 2021 5:31pm Start: 06-26-2021 End: 07-14-2021 doxycycline monohydrate 100 mg oral capsule (20 sources) Tetracycline-class Drug Start: 01-28-2024 End: 05-03-2024 Start: 01-07-2024 End: 01-26-2024 Start: 05-10-2023 End: 07-19-2023 Start: 04-01-2023 End: 07-19-2023 Start: 05-26-2021 End: 06-26-2021 Start: 05-07-2021 End: 07-06-2021 Start: 04-06-2021 End: 04-15-2021 Start: 09-22-2020 End: 10-08-2020 Start: 12-20-2019 End: 01-04-2020 Start: 06-13-2019 End: 07-27-2019 Start: 04-19-2019 End: 06-13-2019 Start: 02-12-2018 End: 02-15-2018 Start: 02-12-2018 End: 02-15-2018 take 100 mg by mouth every twelve hours Doxycycline Monohydrate Discontinued 100 MG PO Q12H February 15, 2018 2:07am February 15, 2018 12:35pm 1 ml enoxaparin sodium 100 m g/ml prefilled syringe (20 sources) Low Molecular Weight Heparin Start: 05-26-2021 End: 06-26-2021 Start: 05-26-2021 End: 06-26-2021 Enoxaparin (Lovenox) 100 mg/ mL Syringe Discontinued 100 MG SC Q12H May 26, 2021 12:00am June 26, 2021 12:20pm Start: 05-26-2021 End: 06-26-2021 Start: 01-23-2013 End: 02-20-2013 Start: 01-23-2013 End: 02-20-2013 Enoxaparin Discontinued 40 M G SC January 23, 2013 1:00am February 20, 2013 3:32pm Start: 01-23-2013 End: 02-20-2013 famotidine 40 mg oral tablet (20 sources) Histamine-2 Receptor Antagonist Start: 04-02-2020 End: 05-03-2024 Start: 04-02-2020 famotidine (PE PCID) 40 mg tablet Take 40 mg by mouth. 04/02/2020 Active Start: 04-02-2020 Comment on above: Take 40 mg by mouth. ferrous sulfate 325 mg oral tablet (20 sources) Start: 12-20-2019 End: 06-26-2021 Start: 12-20-2019 End: 06-26-2021 take 325 mg by mouth once daily Ferrous Sulfate Discontinued 325 MG PO DAILY August 09, 2020 3:23pm September 22, 2020 12:37pm Start: 12-20-2019 End: 08-09-2020 take 325 mg by mouth twice daily Ferrous Sulfate Discontinued 325 MG PO TWICE A DAY 60 December 20, 2019 1:00am August 09, 2020 3:23pm flecainide acetate 50 mg ora l tablet (20 sources) Antiarrhythmic Start: 09-19-2020 End: 07-19-2023 Start: 07-12-2017 End: 03-11-2020 Start: 12-30-2016 End: 07-12-2017 Start: 12-30-2016 End: 07-12-2017 take 100 mg by mouth twice daily Flecainide Discontinued 100 MG PO TWICE A DAY 180 June 24, 2017 4:13pm July 12, 2017 5:09pm Comment on above: Take 1 tablet by audie th every 12 hours. fluconazole 150 mg oral tablet (10 sources) Azole Antifungal Start: 12-23-2021 End: 10-29-2022 fluconazole (DIFLUCAN) 150 mg tablet Take one tablet by mouth once. Then repeat every 3 days for 3 doses. 3 tablet 0 12/23/2021 10/29/2022 Discontinued Comment on above: Take one tablet by m out once. Then repeat every 3 days for 3 doses. fluticasone propionate 0.05 mg/actuat metered dose nasal spray (20 sources) Corticosteroid Start: 02-15-2018 End: 02-27-2018 Start: 02-15-2018 End: 02-27-2018 Fluticasone Propionate Discontinued 2 SPRAY NASAL DAILY February 15, 2018 1:00am February 27, 2018 10:49am Start: 02-15-2018 End: 02-27-2018 Start: 04-19-2017 End: 10-05-2017 Start: 04-19-2017 End: 10-05-2017 take 1 spray(s) nasal route once daily Fluticasone Propionate (Flonase Allergy Relief) 50 mcg/actuation spray,suspension Discontinued 2 SPRAY INTRANASAL daily June 24, 2017 4:24pm October 05, 2017 3:10pm administer into each nostril Start: 01-09-2013 End: 01-12-2013 Start: 01-09-2013 End: 01-12-2013 take 50 ug by inhalation twice daily Fluticasone Propionate (Flovent Diskus) 50 MCG Disk.W.Dev Discontinued 50 MCG INHALATION TWICE A DAY January 09, 2013 1:00am January 12, 2013 3:23pm Start: 01-09-2013 End: 01-12-2013 take 1 spray(s) nasa l route twice daily fluticasone (FLONASE) 50 mcg/actuation nasal spray Use 1 [place] in each nostril twice daily. Active Comment on above: Use 1 [place] in each nostril twice daily. 120 actuat formoterol fumara te 0.005 mg/actuat / mometasone furoate 0.2 mg/actuat metered dose inhaler (20 sources) Corticosteroid, beta2-Adrenergic Agonist Start: 02-27-2018 End: 04-17-2018 Start: 02-27-2018 End: 04-17-2018 take 1 puff(s) by inhalation twice daily Mometasone-Formoterol (Dulera) 200-5 mcg/actuation HFA aerosol inhaler Discontinued 2 PUFF INHALATION TWICE A DAY February 27, 2018 1:00am April 17, 2018 11:09am Start: 02-27-2018 End: 04-17-2018 furosemide 40 mg oral tablet (20 sources) Loop Diuretic Start: 12-09-2019 End: 09-19-2020 Start: 12-09-2019 End: 09-19-2020 take 20 mg by mouth twice daily Furosemide Discontinue d 20 MG PO TWICE A DAY March 11, 2020 2:38pm September 19, 2020 10:57am Start: 04-19-2017 End: 12-20-2019 Start: 04-19-2017 End: 12-20-2019 take 20 mg by mouth once daily Furosemide Discontinued 20 MG PO DAILY July 27, 2019 12:00am December 20, 2019 4:09pm Start: 04-19-2017 End: 12-20-2019 take 2 tablets by mouth once daily Furosemide (Lasix) 20 mg tablet Discontinued 40 MG PO DAILY August 19, 2017 10:11am July 13, 2018 11:35am Comment on above: Take 20 mg by mouth twice daily. Pt is taking 30 mg daily gabapentin 300 mg oral capsu le (20 sources) Anti-epileptic Agent Start: 01-03-2024 End: 01-26-2024 Start: 07-14-2021 take 100 mg by mouth twice daily at mealtime Gabapentin Active 100 MG PO TWICE DAILY WITH MEALS July 14, 2021 12:00am Start: 10-13-2020 End: 03-25-2021 Start: 10-13-2020 End: 03-25-2021 take 1 capsule by mouth at bedtime Gabapentin (Neurontin) 300 mg capsule Discontinued 300 MG PO AT BEDTIME October 13, 2020 12:00am March 25, 2021 12:27pm Start: 10-13-2020 End: 03-25-2021 12 hr guaiFENesin 1200 mg ex tended release oral tablet (20 sources) Start: 09-22-2020 End: 11-16-2022 Start: 12-07-2016 End: 01-28-2017 hydroCHLOROthiazide 12.5 mg oral capsule (20 sources) Thiazide Diuretic Start: 11-19-2016 End: 11-20-2016 insulin isophane, human 100 unt/ml injectable suspension (20 sources) Start: 12-31-2016 End: 10-29-2022 inject 14 [IU] by subcutaneous injection once daily at breakfast insulin NPH human (NOVOLIN N, HUMULIN N) injection Inject 14 Units subcutaneously daily with breakfast. 0 12/31/2016 10/29/2022 Discontinued Start: 12-30-2016 End: 10-29-2022 inject 10 [IU] by subcutaneous injection once daily at bedtime insulin NPH human (NOVOLIN N, HUMULIN N) injection Inject 10 Units subcutaneously daily at bedtime. 0 12/30/2016 10/29/2022 Discontinued Comment on above: Inject 10 Units subc utaneously daily at bedtime. Inject 14 Units subc utaneously daily with breakfast. insulin lispro 100 unt/ml injectable solution (20 sources) Insulin Analog Start: 017 End: 023 inject 5 [IU] by subcutaneous injection at mealtime insulin lispro (HUMALOG) 100 unit/mL injection Inject 5 Units subcutaneously w MEALS. 0 12/30/2016 10/29/2022 Discontinued Start: 12-30-2016 End: 10-29-2022 insulin lispro (HUMALOG) 100 unit/mL injection Inject 1-10 Units subcutaneously w MEALS. ADMINISTER CORRECTIONAL INSULIN REGARDLESS OF MEAL OR NUTRITION INTAKE Scale 2 If Blood Glucose (mg/dL) is: Less than 110 Give 0 units 111-150 Give 0 units 151-200 Give 2 units 201-250 Give 4 units 251-300 Give 6 units 301-350 Give 8 units 351-400 Give 10 units Greater than 400 Give 10 units and Notify Provider . 0 12/30/2016 10/29/2022 Discontinued Comment on above: Inject 5 Units subcu taneously w MEALS. Inject 1-10 Units gtz bcutaneously w MEALS. ADMINISTER CORRECTIONAL INSULIN REGARDLESS OF MEAL OR NUTRITION INTAKE Scale 2 If Blood Glucose (mg/dL) is: Less than 110 Give 0 units 111-150 Give 0 units 151-200 Give 2 units 201-250 Give 4 units 251-300 Give 6 units 301-350 Give 8 units 351-400 Give 10 units Greater than 400 Give 10 units and Notify Provider . lactobacillus acidophilus [id number] unt / pectin 100 mg oral tablet (20 sources) Start: 07-14-2021 End: 11-16-2022 Start: 07-14-2021 End: 11-16-2022 take 1 tablet by mouth twice daily Acidophilus-Pectin, [place] Discontinued 1 TABLET PO TWICE A DAY 0 July 14, 2021 12:00am November 16, 2022 9:56am Start: 07-14-2021 Start: 09-19-2020 End: 03-25-2021 take 1 tablet by mouth twice daily Acidophilus-Pectin, [place] Discontinued 1 TABLET PO TWICE A DAY September 19, 2020 3:01pm March 25, 2021 12:26pm Start: 12-20-2019 End: 03-25-2021 Start: 12-20-2019 End: 09-19-2020 take 1 tablet by mouth three times daily Acidophilus-Pectin, [place] Discontinued 1 TABLET PO THREE TIMES A DAY December 20, 2019 1:00am September 19, 2020 3:02pm Start: 12-20-2019 End: 03-25-2021 levoFLOXacin 750 mg oral tab let (20 sources) Quinolone Antimicrobial Start: 09-12-2023 End: 09-28-2023 Start: 09-09-2023 End: 09-09-2023 Start: 07-06-2021 End: 07-14-2021 Start: 05-27-2021 End: 06-03-2021 Start: 12-20-2019 End: 01-04-2020 Start: 10-29-2019 End: 11-03-2019 Start: 03-30-2014 End: 11-20-2016 levothyroxine sodium 0.025 m g oral tablet (20 sources) l-Thyroxine Start: 02-09-2017 End: 01-04-2020 lisinopril 5 mg oral tablet (20 sources) Angiotensin Converting Enzyme Inhibitor Start: 07-13-2018 End: 10-29-2022 Comment on above: Take 5 mg by mouth o nce daily. magnesium hydroxide 80 mg/ml oral suspension (20 sources) Start: 01-09-2013 End: 01-12-2013 Start: 01-09-2013 End: 01-12-2013 take 1 mL by mouth once daily Magnesium Hydroxide Disc ontinued 15 ML PO DAILY January 09, 2013 1:00am January 12, 2013 3:23pm Start: 01-09-2013 End: 01-12-2013 magnesium oxide 400 mg oral tablet (11 sources) End: 10-29-2022 take 1 tablet by mouth once daily magnesium oxide (MAG-OX) 400 mg tablet Take 400 mg by mouth once daily. 0 10/29/2022 Discontinued Comment on above: Take 400 mg by mouth once daily. methIMAzole 5 mg oral tablet (11 sources) Thyroid Hormone Synthesis Inhibitor Start: 12-31-2016 End: 10-29-2022 take 1 tablet by mouth once daily metHIMazole (TAPAZOLE) 5 mg tablet Take 1 tablet by mouth once daily. 0 12/31/2016 10/29/2022 Discontinued Comment on above: Take 1 tablet by audie th once daily. montelukast 10 mg oral tablet (20 sources) Leukotriene Receptor Antagonist Start: 01-09-2013 End: 11-29-2023 Comment on above: Take 10 mg by mouth daily at bedtime. Pilhlpcafjon-Go-Jn on-Minerals (20 sources) Start: 02-15-2018 End: 01-25-2019 Gzmodhmwdkfo-Yx-Dnc n-Minerals Discontinued 1 EACH PO DAILY February 15, 2018 2:01am January 25, 2019 12:56pm Start: 02-15-2018 End: 01-25-2019 Gmeocevkhzkn-Xp-Cdko-Mineral s Discontinued 1 EACH PO DAILY February 15, 2018 12:00am January 25, 2019 11:56am Start: 02-15-2018 End: 01-25-2019 Dihpgyuirjss-Zs-Xjtq-Mineral s Discontinued 1 EACH PO DAILY February 15, 2018 1:00am January 25, 2019 12:56pm naproxen sodium 220 mg oral tablet (20 sources) Nonsteroidal Anti-inflammatory Drug Start: 01-12-2013 End: 11-20-2016 Allen.Tx.Comp. Immune Systm,Reg ([facility]) 0.08-1.4 gram-kcal/mL Liquid (18 sources) Start: 06-26-2021 End: 06-26-2021 Allen.Tx.Comp. Immune Systm,Reg ([facility]ure [facility]) 0.08-1.4 gram-kcal/mL Liquid Discontinued 237 ML PO 3 TIMES DAILY WITH MEALS 0 June 26, 2021 12:21pm June 26, 2021 3:39pm Start: 06-26-2021 Allen.Tx.Comp. I mmune Systm,Reg ([facility]ure [facility]) 0.08-1.4 gram-kcal/mL Liquid Active 237 ML PO 3 TIMES DAILY WITH MEALS 0 June 26, 2021 12:21pm Start: 06-26-2021 End: 06-26-2021 Allen.Tx.Comp. Immune Systm,Re g ([facility]ure Surgery) 0.08-1.4 gram-kcal/mL Liquid Discontinued 237 ML PO 3 TIMES DAILY WITH MEALS 0 June 25, 2021 11:00pm June 26, 2021 2:39pm Start: 06-26-2021 End: 06-26-2021 Allen.Tx.Comp. Immune Systm,Re g (Ensure Surgery) 0.08-1.4 gram-kcal/mL Liquid Discontinued 237 ML PO 3 TIMES DAILY WITH MEALS 0 June 26, 2021 12:00am June 26, 2021 3:39pm Allen.Tx.Comp. Immune Systm,Re g (Ensure Surgery) 0.08-1.4 gram-kcal/mL liquid (17 sources) Start: 06-26-2021 End: 07-14-2021 Allen.Tx.Comp. Immune Systm,Re g (Ensure Surgery) 0.08-1.4 gram-kcal/mL liquid Discontinued 237 ML PO 3 TIMES DAILY WITH MEALS June 26, 2021 2:39pm July 14, 2021 4:26pm Start: 06-26-2021 End: 07-14-2021 Nut.Tx.Comp. Immune Systm,Re g (Ensure Surgery) 0.08-1.4 gram-kcal/mL liquid Discontinued 237 ML PO 3 TIMES DAILY WITH MEALS June 26, 2021 3:39pm July 14, 2021 5:26pm Start: 06-26-2021 Nut.Tx.Comp. I mmune Systm,Reg (Ensure Surgery) 0.08-1.4 gram-kcal/mL liquid Active 237 ML PO 3 TIMES DAILY WITH MEALS June 26, 2021 3:39pm nystatin 100 unt/mg topical powder (20 sources) Polyene Antifungal Start: 07-06-2021 End: 07-14-2021 Start: 07-06-2021 End: 07-14-2021 Nystatin (Nyamyc) 100,000 un it/gram powder Discontinued 1 APPLIC TOPICAL TWICE A DAY July 06, 2021 4:24pm July 14, 2021 5:30pm Start: 07-06-2021 End: 07-14-2021 omeprazole 40 mg delayed release oral capsule (11 sources) Proton Pump Inhibitor End: 10-29-2022 take 1 capsule by mouth once daily omeprazole (PRILOSEC) 40 mg capsule Take 40 mg by mouth once daily. 0 10/29/2022 Discontinued Comment on above: Take 40 mg by mouth once daily. oxyCODONE hydrochloride 5 mg oral tablet (10 sources) Opioid Agonist Start: 01-28-2024 End: 05-03-2024 pantoprazole 40 mg delayed release oral tablet (20 sources) Proton Pump Inhibitor Start: 12-20-2019 End: 04-02-2020 Start: 2017 End: 01-25-2019 Start: 2017 End: 01-25-2019 take 40 mg by mouth once daily Pantoprazole Discontinu ed 40 MG PO DAILY 2017 1:00am January 25, 2019 12:57pm phenazopyridine hydrochloride 200 mg oral tablet (11 sources) Start: 07-19-2019 End: 10-29-2022 take 1 tablet by mouth three times daily as needed phenazopyridine (PYRIDIUM) 200 mg tablet Indications: Acute cystitis with hematuria Take 1 tablet by mouth three times daily as needed. 30 tablet 0 07/19/2019 10/29/2022 Discontinued Comment on above: Take 1 tablet by audie th three times daily as needed. polymyxin b [id number] unt/ml / trimethoprim 1 mg/ml ophthalmic solution (20 sources) Dihydrofolate Reductase Inhibitor Antibacterial, Polymyxin-class Antibacterial Start: 12-20-2019 End: 01-04-2020 Start: 12-20-2019 End: 01-04-2020 take 1 drop(s) into the eye(s) four times daily Polymyxin B Sulf-Trimethoprim Discontinued 1 DRP OP 4 TIMES DAILY December 20, 2019 1:00am January 04, 2020 3:28pm Apply 1 drop to left eye 4 times daily for 7 days predniSONE 20 mg oral tablet (20 sources) Start: 01-13-2024 End: 01-26-2024 Start: 08-06-2023 End: 09-28-2023 Start: 05-08-2022 End: 05-27-2022 Start: 11-09-2021 End: 12-03-2021 Start: 11-09-2021 End: 12-03-2021 take 60 mg by mouth once daily at mealtime Prednisone Discontinued 60 MG PO daily November 09, 2021 12:00am December 03, 2021 1:03pm administer with food or milk Start: 04-01-2021 End: 04-06-2021 Start: 09-22-2020 End: 10-08-2020 Start: 08-06-2020 End: 08-11-2020 Start: 04-19-2019 End: 06-13-2019 Start: 11-22-2016 End: 12-30-2016 Start: 11-19-2016 End: 11-22-2016 Start: 11-19-2016 End: 11-22-2016 take 1 tablet by mouth twice daily Prednisone (Deltasone) 20 MG tablet Discontinued 20 MG PO TWICE A DAY November 19, 2016 12:00am November 22, 2016 5:09pm Comment on above: Take 1 tablet by audie once daily. 40MG PO QD FOR 3DAYS, THEN 30MG PO QD FOR 3DAYS, THEN 20MG PO QD FOR 3DAYS AND THEN 10MG PO QD FOR 3DAYS, THEN 5MG DAILY. Remove Patch (20 sources) Start: 07-06-2021 End: 07-14-2021 apply 1 dose topically once daily Remove Patch Discontinued 1 PATCH TOPICAL DAILY@2199July 06, 2021 3:24pm July 14, 2021 4:31pm Start: 07-06-2021 End: 07-14-2021 apply 1 dose topically once daily Remove Patch Discontinued 1 PATCH TOPICAL DAILY@2199July 06, 2021 4:24pm July 14, 2021 5:31pm Start: 07-06-2021 End: 07-06-2021 apply 1 dose topically once daily Remove Patch Discontinued 1 patch topical DAILY@2199July 05, 2021 11:00pm July 06, 2021 3:24pm Start: 07-06-2021 End: 07-06-2021 apply 1 dose topically once daily Remove Patch Discontinued 1 patch topical DAILY@2199July 06, 2021 12:00am July 06, 2021 4:24pm spironolactone 25 mg oral ta blet (20 sources) Aldosterone Antagonist Start: 01-25-2019 End: 12-20-2019 End: 10-29-2022 take 1 tablet by mouth twice daily spironolactone (ALDACTONE) 25 mg tablet Take 25 mg by mouth twice daily. 0 10/29/2022 Discontinued Comment on above: Take 25 mg by mouth twice daily. sucralfate 1000 mg oral tabl et (10 sources) Aluminum Complex Start: 01-24-2024 End: 05-03-2024 sulfamethoxazole 800 mg / trimethoprim 160 mg oral tablet (11 sources) Dihydrofolate Reductase Inhibitor Antibacterial, Sulfonamide Antimicrobial Start: 05-17-2023 End: 07-19-2023 Start: 05-17-2023 take 1 tablet by audie twice daily Sulfamethoxazole-Trimethoprim (Bactrim D s) 800-160 mg tablet Active 1 TABLET PO TWICE A DAY May 17, 2023 12:00am traMADol hydrochloride 50 mg oral tablet (20 sources) Opioid Agonist Start: 11-16-2022 End: 07-19-2023 Start: 06-26-2021 End: 07-14-2021 Start: 06-26-2021 End: 07-14-2021 take 50 mg by mouth every six hours as needed Tramadol Discontinued 50 MG PO EVERY 6 HOURS NEEDED 10 3 July 06, 2021 12:29pm July 14, 2021 5:31pm triamcinolone acetonide 0.25 mg/ml topical cream (7 sources) Corticosteroid Start: 01-08-2022 End: 10-29-2022 triamcinolone (KENALOG) 0.025 % cream Apply to affected area twice daily. 15 g 1 01/08/2022 10/29/2022 Discontinued (Course of therapy completed) Comment on above: Apply to affected ar ea twice daily. (20 sources) Start: 01-26-2024 End: 05-16-2024 Start: 07-06-2021 End: 07-14-2021 Start: 07-06-2021 Start: 07-06-2021 End: 07-06-2021 Start: 07-06-2021 End: 07-06-2021 Start: 06-26-2021 End: 07-14-2021 Start: 06-26-2021 Start: 06-26-2021 End: 06-26-2021 Start: 06-26-2021 End: 06-26-2021 Start: 05-22-2021 End: 06-26-2021 Start: 05-22-2021 End: 06-26-2021 Start: 03-25-2021 Start: 03-25-2021 End: 12-03-2021 Start: 03-25-2021 Start: 02-15-2018 End: 01-25-2019 Start: 02-15-2018 End: 01-25-2019 Start: 01-09-2013 End: 06-24-2017 Problems Active Problems Problem Classification Problem Date Documented Date Episodic/Chronic Acute and unspecified renal failure (20 sources) Injury of kidney; Translations: [Acute kidney failure, unspecified] 07-11-2021 Episodic Allergic reactions (2 sources) Vulval eczema; Translations: [Dermatitis, unspecified] Episodic Asthma (20 sources) Moderate persistent asthma with (acute) exacerbation; Translations: [Unspecified asthma with (acute) exacerbation] Onset: 7 Chronic Asthma (1 source) Asthma Onset: 7 Bacterial infection; unspecified site (2 sources) Bacterial infection due to Pseudomonas; Translations: [Other bacterial infections of unspecified site] 09-06-2024 Episodic Cardiac dysrhythmias (20 sources) Paroxysmal atrial fibrillation; Translations: [Atrial tachycardia] Onset: 7 Chronic Cardiac dysrhythmias (7 sources) Palpitations; Translations: [Palpitations] Episodic Cardiac dysrhythmias (1 source) Cardiac dysrhythmias Onset: 7 Chronic kidney disease (20 sources) Chronic kidney disease, stage 3 (moderate); Translations: [Chronic kidney disease stage 3A ] Onset: 7 Chronic Chronic obstructive pulmonary disease and bronchiectasis (20 sources) Acute exacerbation of chronic obstructive airways disease; Translations: [Chronic obstructive pulmonary disease with (acute) exacerbation] Onset: 4 Chronic Chronic ulcer of skin (16 sources) 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; Translations: [Non-pressure chronic ulcer of right ankle with fat layer exposed] Onset: 5 05-10-2023 Chronic Coagulation and hemorrhagic disorders (11 sources) Purpuric rash; Translations: [Other nonthrombocytopenic purpura] Onset: 5 01-21-2024 Episodic Complications of surgical procedures or medical care (20 sources) Wound dehiscence; Translations: [Disruption of external operation (surgical) wound, not elsewhere classified, initial encounter] Onset: 4 Episodic Congestive heart failure; nonhypertensive (20 sources) Chronic diastolic heart failure; Translations: [Chronic diastolic (congestive) heart failure] Chronic Coronary atherosclerosis and other heart disease (1 source) Coronary atherosclerosis and other heart disease Onset: 7 Deficiency and other anemia (3 sources) Iron deficiency anemia; Translations: [Iron deficiency anemia, unspecified] Episodic Deficiency and other anemia (1 source) Iron deficiency anemia, unspecified; Translations: [Iron deficiency anemia, unspecified] Episodic Deficiency and other anemia (1 source) Deficiency and other anemia Onset: 7 Diabetes mellitus with complications (2 sources) Type 2 diabetes mellitus with diabetic neuropathy, unspecified; Translations: [Type 2 diabetes mellitus with diabetic chronic kidney disease] Onset: 5 Chronic Diabetes mellitus without complication (20 sources) Diabetes mellitus; Translations: [Type 2 diabetes mellitus without complications] Chronic Disorders of lipid metabolism (20 sources) Hyperlipidemia; Translations: [Hyperlipidemia, unspecified] Onset: 5 Chronic Esophageal disorders (20 sources) Gastroesophageal reflux disease; Translations: [Gastro-esophageal reflux disease without esophagitis] Onset: 7 Chronic Essential hypertension (20 sources) Essential (primary) hypertension; Translations: [Benign essential hypertension] Onset: 7 Chronic Essential hypertension (1 source) Essential hypertension Onset: External Injury - Adverse effects of medical drugs (1 source) Adverse effect of glucocorticoids and synthetic analogues, initial encounter; Translations: [Adverse effect of glucocorticoids and synthetic analogues, initial encounter] Onset: 7 Fever of unknown origin (20 sources) Fever; Translations: [Fever, unspecified] Episodic Fluid and electrolyte disorders (20 sources) Hypokalemia; Translations: [Hypokalemia] Episodic Headache; including migraine (20 sources) Headache; Translations: [Headache, unspecified headache type] Episodic Influenza (20 sources) Influenza; Translations: [Influenza due to unidentified influenza virus with other respiratory manifestations] 05-08-2022 Episodic Malaise and fatigue (20 sources) Weakness; Translations: [Asthenia] Onset: 7 Episodic Nausea and vomiting (2 sources) Nausea and vomiting; Translations: [Nausea with vomiting, unspecified] 09-06-2024 Episodic Nutritional deficiencies (20 sources) Vitamin D deficiency; Translations: [Vitamin D deficiency, unspecified] Onset: 7 Chronic Osteoarthritis (20 sources) Osteoarthritis of left hip joint; Translations: [Unilateral primary osteoarthritis, left hip] Chronic Osteoporosis (1 source) Age-related osteoporosis without current pathological fracture; Translations: [Age-related osteoporosis without current pathological fracture] Onset: 5 Chronic Other acquired deformities (20 sources) Scoliosis of lumbar spine; Translations: [Scoliosis, unspecified] Chronic Other acquired deformities (1 source) Scoliosis, unspecified; Translations: [Scoliosis, unspecified] Onset: 5 Chronic Other acquired deformities (17 sources) Lumbar spondylolisthesis; Translations: [Spondylolisthesis, lumbar region] 05-04-2024 Episodic Other acquired deformities (17 sources) Leg length inequality; Translations: [Unequal limb length (acquired), unspecified site] 05-04-2024 Episodic Other acquired deformities (1 source) Spondylolisthesis, lumbar region; Translations: [Spondylolisthesis, lumbar region] Onset: 5 Episodic Other aftercare (20 sources) Long-term current use of anticoagulant; Translations: [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) use of anticoagulants] 05-08-2022 Episodic Other aftercare (19 sources) Long-term current use of drug therapy; Translations: [Other buttermaker continuous churn (current) drug therapy] 05-31-2022 Episodic Other bone disease and musculoskeletal deformities (2 sources) Avascular necrosis of bone; Translations: [Idiopathic aseptic necrosis of unspecified ankle] 09-16-2022 Chronic Other bone disease and musculoskeletal deformities (1 source) Idiopathic aseptic necrosis of unspecified ankle; Translations: [Avascular necrosis of bone of ankle (HCC)] Onset: 3 Chronic Other bone disease and musculoskeletal deformities (1 source) Idiopathic aseptic necrosis of left tibia; Translations: [Avascular necrosis of left tibia (HCC)] Onset: 3 Chronic Other bone disease and musculoskeletal deformities (17 sources) Osteopenia; Translations: [Other specified disorders of bone density and structure, unspecified site] 05-04-2024 Episodic Other circulatory disease (10 sources) Vasculitis; Translations: [Arteritis, unspecified] 01-21-2024 Chronic Other circulatory disease (20 sources) H/O: atrial fibrillation; Translations: [Personal history of other diseases of the circulatory system] 05-08-2022 Episodic Other connective tissue disease (20 sources) History of total hip arthroplasty; Translations: [Presence of left artificial hip joint] 07-11-2021 Chronic Other connective tissue disease (5 sources) History of repair of hip joint; Translations: [Presence of unspecified artificial hip joint] Chronic Other connective tissue disease (1 source) Presence of unspecified artificial hip joint; Translations: [Hip joint replacement] Chronic Other connective tissue disease (20 sources) Presence of left artificial hip joint; Translations: [Hip joint replacement] Chronic Other connective tissue disease (1 source) Pain in left leg; Translations: [Pain in left leg] Onset: 5 Episodic Other diseases of veins and lymphatics (12 sources) Peripheral venous insufficiency; Translations: [Venous insufficiency (chronic) (peripheral)] 05-10-2023 Episodic Other female genital disorders (1 source) Vulval irritation; Translations: [Other specified noninflammatory disorders of vulva and perineum] 10-29-2022 Episodic Other female genital disorders (1 source) Vaginal discharge; Translations: [Other specified noninflammatory disorders of vagina] 12-07-2022 Episodic Other inflammatory condition of skin (4 sources) Pruritus of vulva; Translations: [Pruritus vulvae] Episodic Other injuries and conditions due to external causes (1 source) Blood blister; Translations: [Other injury of unspecified body region, initial encounter] 10-05-2023 Episodic Other lower respiratory disease (6 sources) Shortness of breath; Translations: [Shortness of breath] Onset: 7 Episodic Other lower respiratory disease (7 sources) Dyspnea; Translations: [Shortness of breath] Episodic Other lower respiratory disease (12 sources) Cough; Translations: [Cough] Episodic Other lower respiratory disease (9 sources) Nodule of lung; Translations: [Solitary pulmonary nodule] 09-06-2024 Episodic Other lower respiratory disease (20 sources) Acute lower respiratory tract infection; Translations: [Unspecified acute lower respiratory infection] 09-30-2020 Episodic Other lower respiratory disease (7 sources) Cavitation of lung; Translations: [Other disorders of lung] Episodic Other lower respiratory disease (7 sources) Solitary pulmonary nodule; Translations: [Solitary pulmonary nodule] Episodic Other lower respiratory disease (4 sources) History of chronic obstructive airway disease; Translations: [Personal history of other diseases of the respiratory system] Episodic Other lower respiratory disease (10 sources) Respiratory insufficiency; Translations: [Other abnormalities of breathing] 08-04-2023 Episodic Other lower respiratory disease (10 sources) Hypoxia; Translations: [Hypoxemia] 05-16-2024 Episodic Other nervous system disorders (1 source) Myopathy, unspecified; Translations: [Myopathy, unspecified] Onset: 7 Chronic Other nervous system disorders (1 source) Other chronic pain; Translations: [Chronic pain of left ankle] Onset: 3 Chronic Other nervous system disorders (17 sources) Neuropathy; Translations: [Polyneuropathy, unspecified] 05-04-2024 Chronic Other nervous system disorders (1 source) Polyneuropathy, unspecified; Translations: [Polyneuropathy, unspecified] Onset: 5 Chronic Other nervous system disorders (7 sources) Steroid-induced myopathy ; Translations: [Drug-induced myopathy] Episodic Other non-traumatic joint disorders (20 sources) Hip pain; Translations: [Pain in left hip] 09-30-2020 Episodic Other non-traumatic joint disorders (1 source) Chronic ankle pain; Translations: [Pain in left ankle and joints of left foot] 09-16-2022 Episodic Other non-traumatic joint disorders (1 source) Pain in left ankle and joints of left foot; Translations: [Chronic pain of left ankle] Onset: 3 Episodic Other nutritional; endocrine; and metabolic disorders (6 sources) Morbid (severe) obesity due to excess calories; Translations: [Morbid obesity] Onset: 7 03-01-2022 Chronic Other nutritional; endocrine; and metabolic disorders (7 sources) Obesity; Translations: [Obesity, unspecified] Chronic Other nutritional; endocrine; and metabolic disorders (5 sources) Obesity, unspecified; Translations: [Obesity, unspecified] Chronic Other nutritional; endocrine; and metabolic disorders (20 sources) Body mass index 40+ - severely obese; Translations: [Morbid (severe) obesity due to excess calories] Onset: 7 12-23-2016 Chronic Other nutritional; endocrine; and metabolic disorders (20 sources) Morbid obesity; Translations: [Morbid (severe) obesity due to excess calories] 03-01-2022 Chronic Other nutritional; endocrine; and metabolic disorders (20 sources) H/O: diabetes mellitus; Translations: [Personal history of other endocrine, nutritional and metabolic disease] 05-08-2022 Episodic Other screening for suspected conditions (not mental disorders or infectious disease) (7 sources) CT of chest abnormal; Translations: [Abnormal findings on diagnostic imaging of other specified body structures] Chronic Other skin disorders (1 source) Epidermoid cyst; Translations: [Epidermal cyst] 05-07-2024 Episodic Other upper respiratory disease (10 sources) Allergic rhinitis; Translations: [Allergic rhinitis, unspecified] Chronic Other upper respiratory disease (3 sources) Allergic rhinitis, unspecified; Translations: [Allergic rhinitis, cause unspecified] Chronic Other upper respiratory disease (1 source) Disease of upper respiratory tract, unspecified; Translations: [Disease of upper respiratory tract, unspecified] Onset: Episodic Other upper respiratory infections (12 sources) Acute upper respiratory infection; Translations: [Acute upper respiratory infection, unspecified] Onset: 4 02-01-2024 Episodic Peripheral and visceral atherosclerosis (7 sources) Peripheral vascular disease; Translations: [Peripheral vascular disease, unspecified] Chronic Phlebitis; thrombophlebitis and thromboembolism (14 sources) Deep venous thrombosis; Translations: [Acute embolism and thrombosis of unspecified deep veins of unspecified lower extremity] Episodic Pneumonia (20 sources) Pneumonia due to Pseudomonas; Translations: [Pneumonia due to Pseudomonas] Onset: 7 Episodic Pneumonia (1 source) Pneumonia Onset: 7 Pulmonary heart disease (20 sources) Pulmonary embolism; Translations: [Other pulmonary embolism without acute cor pulmonale] Onset: 3 Resolved: 7 Episodic Residual codes; unclassified (20 sources) Obstructive sleep apnea syndrome; Translations: [Obstructive sleep apnea (adult) (pediatric)] 03-15-2022 Chronic Residual codes; unclassified (20 sources) Daytime hypersomnia; Translations: [Hypersomnia, unspecified] 03-01-2022 Chronic Residual codes; unclassified (3 sources) Hypersomnia, unspecified; Translations: [Hypersomnia, unspecified] 03-01-2022 Chronic Residual codes; unclassified (9 sources) Obstructive sleep apnea (adult) (pediatric); Translations: [Obstructive sleep apnea (adult)(pediatric)] 05-27-2022 Chronic Residual codes; unclassified (7 sources) Insomnia; Translations: [Insomnia, unspecified] Episodic Respiratory failure; insufficiency; arrest (1 source) Respiratory failure; insufficiency; arrest Onset: 7 Respiratory failure; insufficiency; arrest (adult) (20 sources) Acute respiratory failure; Translations: [Acute respiratory failure with hypoxia] 09-30-2020 Episodic Septicemia (except in labor) (7 sources) Septic shock; Translations: [Sepsis, unspecified organism] Episodic Skin and subcutaneous tissue infections (20 sources) Cellulitis of lower limb; Translations: [Cellulitis of left lower limb] Onset: 4 07-11-2021 Episodic Thyroid disorders (20 sources) Nontoxic single thyroid nodule; Translations: [Thyrotoxicosis, unspecified without thyrotoxic crisis or storm] Onset: 2 Chronic Unclassified (1 source) Hyperglycemia, unspecified / R73.9(ICD-10) Onset: 7 Unclassified (1 source) Pressure ulcer of right buttock, stage 3 / L89.313(ICD-10) Onset: 7 Unclassified (1 source) Body mass index (BMI) 40.0-44.9, adult / Z68.41(ICD-10) Onset: 7 Unclassified (1 source) Morbid (severe) obesity due to excess calories / E66.01(ICD-10) Onset: 7 Unclassified (1 source) Encephalopathy, unspecified / G93.40(ICD-10) Onset: 7 Unclassified (1 source) 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(ICD-10) Onset: 7 Unclassified (1 source) Adverse effect of glucocort/synth analog, init / T38.0X5A(ICD-10) Onset: 7 Unclassified (2 sources) 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) Onset: 7 Unclassified (1 source) Pressure ulcer of sacral region, stage 3 / L89.153(ICD-10) Onset: 7 Unclassified (1 source) 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) use of antithrombotics/antiplat elets / Z79.02(ICD-10) Onset: 7 Unclassified (1 source) Disorder of thyroid, unspecified / E07.9(ICD-10) Onset: 7 Unclassified (1 source) Pressure ulcer of left buttock, stage 3 / L89.323(ICD-10) Onset: 7 Unclassified (1 source) Spinal stenosis, lumbar region without neurogenic andry / M48.061(ICD-10) Onset: 7 Unclassified (1 source) Radiculopathy, cervical region / M54.12(ICD-10) Onset: 7 Unclassified (1 source) Radiculopathy, lumbar region / M54.16(ICD-10) Onset: 7 Unclassified (1 source) USP (current) use of systemic steroids / Z79.52(ICD-10) Onset: 7 Unclassified (1 source) Personal history of other venous thrombosis and embolism / Z86.718(ICD-10) Onset: 7 Unclassified (1 source) Personal history of pulmonary embolism / Z86.711(ICD-10) Onset: 7 Unclassified (1 source) Personal history of nicotine dependence / Z87.891(ICD-10) Onset: 7 Unclassified (1 source) 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) Onset: 7 Unclassified (14 sources) Spondylolisthesis of lumbar region Unclassified (1 source) Low back pain, unspecified; Translations: [Low back pain, unspecified] Onset: 5 Unclassified (1 source) Other intervertebral disc degeneration, lumbar region without mention of lumbar back pain or lower extremity pain; Translations: [Other intervertebral disc degeneration, lumbar region without mention of lumbar back pain or lower extremity pain] Onset: 5 Urinary tract infections (20 sources) Acute urinary tract infection; Translations: [Urinary tract infection, site not specified] Onset: 4 07-11-2021 Episodic Past or Other Problems Problem Classification Problem Date Documented Da te Episodic/Chronic Abdominal hernia (9 sources) Umbilical hernia; Translations: [Umbilical hernia without obstruction or gangrene] Onset: 08-03-2012 Resolved: 12-23-2016 12-23-2016 Episodic Aortic and peripheral arterial embolism or thrombosis (2 sources) Vascular disorder; Translations: [Embolism and thrombosis of unspecified artery] Onset: 10-28-2005 Resolved: 12-23-2016 12-23-2016 Chronic Biliary tract disease (2 sources) Disorder of gallbladder; Translations: [Other specified diseases of gallbladder] Onset: 10-14-2005 Resolved: 12-23-2016 12-23-2016 Episodic Chronic obstructive pulmonary disease and bronchiectasis (1 source) Bronchitis, not specified as acute or chronic; Translations: [Bronchitis, not specified as acute or chronic] Onset: 12-15-2016 Episodic Diabetes mellitus without complication (1 source) Hyperglycemia, unspecified; Translations: [Hyperglycemia, unspecified] Onset: 12-15-2016 Episodic External Injury - Adverse effects of medical drugs (1 source) Drug-induced myopathy; Translations: [Drug-induced myopathy] Onset: 01-21-2017 Episodic Genitourinary symptoms and ill-defined conditions (1 source) Frequency of micturition; Translations: [Frequency of micturition] Onset: 04-25-2024 Episodic Other aftercare (1 source) Encounter for follow-up examination after completed treatment for conditions other than malignant neoplasm; Translations: [Encounter for follow-up examination after completed treatment for conditions other than malignant neoplasm] Onset: 03-08-2024 Episodic Other diseases of veins and lymphatics (5 sources) Venous insufficiency (chronic) (peripheral); Translations: [Venous (peripheral) insufficiency, unspecified] Onset: 02-10-2024 05-15-2023 Episodic Other gastrointestinal disorders (1 source) Diarrhea, unspecified; Translations: [Diarrhea, unspecified] Onset: 12-26-2023 Episodic Other injuries and conditions due to external causes (2 sources) Local infection of wound; Translations: [Other injury of unspecified body region, initial encounter] Onset: 02-16-2012 Resolved: 12-23-2016 12-23-2016 Episodic Other non-traumatic joint disorders (4 sources) Pain in right ankle and joints of right foot; Translations: [Pain in left ankle and joints of left foot] Onset: 12-15-2016 Episodic Other screening for suspected conditions (not mental disorders or infectious disease) (4 sources) Patient encounter status; Translations: [Encounter for screening mammogram for malignant neoplasm of breast] Onset: 12-06-2007 Resolved: 12-23-2016 Episodic Residual codes; unclassified (1 source) Localized edema; Translations: [Localized edema] Onset: 12-13-2023 Episodic Spondylosis; intervertebral disc disorders; other back problems (3 sources) Low back pain; Translations: [Neck pain] Onset: 12-15-2016 Episodic Results Test Name Value Interpretation Reference Range Facility Absolute lymphocyte countOrd ered By: Genevieve Bailey on 09-06-2024 Lymphocytes Auto (Unsp spec) [#/Vol] 0.49 10*3/uL Low 0.83-4.51 [facility] Activated partial thrombopla stin time (aPTT) in platelet poor plasma by coagulation aOrdered By: Genevieve Bailey on 09-06-2024 aPTT Coag (PPP) [Time] 31.1 s 24.1-36.2 [facility] Anion gap in Serum or Plasma Ordered By: Genevieve Bailey on 09-06-2024 Anion gap [Moles/Vol] 15 mmol/L 5-15 [facility] Automated lymphocyte count a s percentage of total leukocytesOrdered By: Genevieve Bailey on 09-06-2024 Lymphocytes/100 WBC Auto (Unsp spec) 5.0 % Low 19-41 [facility] BUN/creatinine ratioOrdered By: Genevieve Bailey on 09-06-2024 Urea nitrogen/Creatinine [Mass ratio] 15.1 mg/mg 10-20 [facility] Basophil percentageOrdered B y: Genevieve Bailey on 09-06-2024 Basophils/100 WBC (Bld) 0.2 % 0-1 [facility] Bilirubin Test strip Ql (U)O rdered By: Genevieve Bailey on 09-06-2024 Bilirubin Ql (U) Negative Negative [facility] Bilirubin, totalOrdered By: Genevieve Bailey on 09-06-2024 Bilirubin [Mass/Vol] 0.40 mg/dL 0.00-1.30 [facility] Carbon dioxide, total [Moles /volume] in Central venous bloodOrdered By: Genevieve Bailey on 09-06-2024 CO2 [Moles/Vol] 21.9 mmol/L 21.0-32.0 [facility] Chloride assayOrdered By: Didier Bailey on 09-06-2024 Chloride [Moles/Vol] 107 mmol/L 98-108 [facility] Eosinophil percentageOrdered By: Genevieve Bailey on 09-06-2024 Eosinophils/100 WBC (Bld) 0.9 % 0-5 [facility] Erythrocyte distribution wid th ratioOrdered By: Genevieve Bailey on 09-06-2024 Erythrocyte distribution width (RBC) [Ratio] 14.9 % High 11.6-14.6 [facility] Erythrocyte distribution wid th standard deviationOrdered By: Genevieve Bailey on 09-06-2024 Erythrocyte distribution width (RBC) [Ratio] 51.6 fl High 35.1-43.9 [facility] Glomerular filtration rate ( GFR) estimation/1.73 sq m using serum, plasma, or whole bOrdered By: Genevieve Bailey on 09-06-2024 GFR/1.73 sq M.predicted among non-blacks MDRD (S/P/Bld) [Vol rate/Area] 45 mL/min/{1.73_m2} Low >60 [facility] Hematocrit Auto (Bld) [Volum e fraction]Ordered By: Genevieve Bailey on 09-06-2024 Hematocrit (Bld) [Volume fraction] 36.0 % Low 37-47 [facility] Hemoglobin measurementOrdere d By: Genevieve Bailey on 09-06-2024 Hemoglobin (Bld) [Mass/Vol] 11.2 g/dL Low 12.0-15.0 [facility] Immature granulocytes/100 WB C Auto (Bld)Ordered By: Genevieve Bailey on 09-06-2024 Immature granulocytes/100 WBC (Bld) 0.400 % 0.0-0.9 [facility] Influenza virus A and B and SARS-CoV-2 (COVID-19) and Respiratory syncytial virus RNAOrdered By: Genevieve Bailey on 09-06-2024 SARS-CoV-2 (COVID-19) RNA SUSHMA+probe Ql (Unsp spec) [facility] Ketones Test strip Ql (U)Ord ered By: Genevieve Bailey on 09-06-2024 Ketones Ql (U) Negative Negative [facility] MCV (mean corpuscular volume ) determinationOrdered By: Genevieve Bailey on 09-06-2024 MCV (RBC) [Entitic vol] 94.0 fL 81-99 [facility] Mean corpuscular hemoglobin (MCH) determinationOrdered By: Genevieve Bailey on 09-06-2024 MCH (RBC) [Entitic mass] 29.2 pg 27.0-32.0 [facility] Monocyte percentageOrdered B y: Genevieve Bailey on 09-06-2024 Monocytes/100 WBC (Bld) 4.6 % 0-10 [facility] Mucus LM Ql (Urine sed)Order ed By: Genevieve Bailey on 09-06-2024 Mucus Ql (Urine sed) 0 SEEN /hpf [facility] Neutrophil percentageOrdered By: Genevieve Bailey on 09-06-2024 Neutrophils/100 WBC (Bld) 88.9 % High 47-70 [facility] Nitrite Test strip Ql (U)Ord ered By: Geneiveve Bailey on 09-06-2024 Nitrite Ql (U) Negative Negative [facility] No Panel InformationOrdered By: Genevieve Bailey on 09-06-2024 17 U/L <32 [facility] Platelet countOrdered By: Didier Bailey on 09-06-2024 Platelets (Bld) [#/Vol] 437 10*3/uL 150-450 [facility] Potassium measurement (mass/ volume)Ordered By: Genevieve Bailey on 09-06-2024 Potassium (Unsp spec) [Mass/Vol] 3.5 mmol/L 3.3-5.1 [facility] Protein Test strip Ql (U)Ord ered By: Genevieve Bailey on 09-06-2024 Protein Ql (U) 30 mg/dl High Negative [facility] Prothrombin timeOrdered By: Genevieve Bailey on 09-06-2024 PT Coag (PPP) [Time] 16.9 s High 11.7-14.9 [facility] RBC Auto (Bld) [#/Vol]Ordere d By: Genevieve Bailey on 09-06-2024 RBC (Bld) [#/Vol] 3.83 10*6/uL Low 4.2-5.4 [facility] Serum creatinine measurement (mass/volume)Ordered By: Genevieve Bailey on 09-06-2024 Creatinine [Mass/Vol] 1.29 mg/dL High 0.70-1.20 [facility] Serum globulin measurementOr dered By: Genevieve Bailey on 09-06-2024 Globulin (S) [Mass/Vol] 3.7 g/dL 2.2-4.2 [facility] Serum glucose measurement (m ass/volume)Ordered By: Genevieve Bailey on 09-06-2024 Glucose [Mass/Vol] 102 mg/dL High 70-99 [facility] Serum or plasma alanine castro otransferase (ALT) measurementOrdered By: Genevieve Bailey on 09-06-2024 ALT [Catalytic activity/Vol] U/L <35 [facility] Serum or plasma albumin nga urement (mass/volume)Ordered By: Genevieve Bailey on 09-06-2024 Albumin [Mass/Vol] 3.5 g/dL 3.4-4.8 [facility] Serum or plasma albumin/glob ulin mass ratioOrdered By: Genevieve Bailey on 09-06-2024 Albumin/Globulin [Mass ratio] 1.0 {ratio} 0.9-2.4 [facility] Serum or plasma alkaline heidy sphatase measurementOrdered By: Genevieve Bailey on 09-06-2024 ALP [Catalytic activity/Vol] 98 U/L 35-104 [facility] Serum or plasma calcium nga urement (mass/volume)Ordered By: Genevieve Bailey on 09-06-2024 Calcium [Mass/Vol] 9.3 mg/dL 7.6-11.0 [facility] Serum or plasma creatine kin ase activityOrdered By: Genevieve Bailey on 09-06-2024 CK [Catalytic activity/Vol] 41 U/L 24-195 [facility] Serum or plasma urea nitroge n measurement (mass/volume)Ordered By: Genevieve Bailey on 09-06-2024 Urea nitrogen [Mass/Vol] 20 mg/dL High 4-19 [facility] Sodium levelOrdered By: Juli Bailey on 09-06-2024 Sodium [Moles/Vol] 144 mmol/L 133-145 [facility] Squamous epithelial cells de tection in urine sediment by light microscopyOrdered By: Genevieve Bailey on 09-06-2024 Epithelial cells.squamous LM Ql (Urine sed) 0 SEEN /hpf 5-10 [facility] Total proteinOrdered By: Megan Bailey on 09-06-2024 Protein [Mass/Vol] 7.2 g/dL 5.9-8.4 [facility] Transitional cells detection in urine sediment by light microscopyOrdered By: Genevieve Bailey on 09-06-2024 Transitional cells LM Ql (Urine sed) 0-5 SEEN /hpf 0-5 [facility] Urine clarityOrdered By: Megan Bailey on 09-06-2024 Clarity (U) Clear Clear [facility] Urine color determinationOrd ered By: Genevieve Bailey on 09-06-2024 Color (U) Yellow Yellow [facility] Urine glucose detectionOrder ed By: Genevieve Bailey on 09-06-2024 Glucose Ql (U) Normal mg/dl Normal [facility] Urine leukocyte esterase det ection by dipstickOrdered By: Genevieve Bailey on 09-06-2024 Leukocyte esterase Test strip Ql (U) 25 /ul High Negative [facility] Urine pHOrdered By: Genevieve gonzales on 09-06-2024 pH (U) 6.0 [pH] 5.0 - 8.0 [facility] Urine sediment bacteria coun t by microscopy (number/high power field)Ordered By: Genevieve Bailey on 09-06-2024 Bacteria LM.HPF (Urine sed) [#/Area] 0 /[HPF] None Seen [facility] Urine specific gravity measu rementOrdered By: Genevieve Bailey on 09-06-2024 Specific gravity (U) [Rel density] 1.015 1.002-1.03 0 [facility] Urine urobilinogen measureme ntOrdered By: Genevieve Bailey on 09-06-2024 Urobilinogen Ql (U) Normal mg/dl Normal [facility] White blood cell (WBC) count Ordered By: Genevieve Bailey on 09-06-2024 WBC (Bld) [#/Vol] 9.8 10*3/uL 4.4-11.0 [facility] White blood cell countOrdere d By: Genevieve Bailey on 09-06-2024 White blood cell count 0-5 SEEN /hpf 0-5 [facility] Absolute lymphocyte countOrd ered By: Moreno Donnelly on 09-05-2024 Lymphocytes Auto (Unsp spec) [#/Vol] 1.67 10*3/uL 0.83-4.51 [facility] Albumin Elph [Mass/Vol]Order ed By: Moreno Donnelly on 09-05-2024 Albumin [Mass/Vol] 2.9 g/dL 2.9-4.4 [facility] Anion gap in Serum or Plasma Ordered By: Moreno Donnelly on 09-05-2024 Anion gap [Moles/Vol] 15 mmol/L 5-15 [facility] Automated lymphocyte count a s percentage of total leukocytesOrdered By: Moreno Donnelly on 09-05-2024 Lymphocytes/100 WBC Auto (Unsp spec) 19.2 % 19-41 [facility] BUN/creatinine ratioOrdered By: Moreno Donnelly on 09-05-2024 Urea nitrogen/Creatinine [Mass ratio] 21.4 mg/mg High 10-20 [facility] Basophil percentageOrdered B y: Moreno Donnelly on 09-05-2024 Basophils/100 WBC (Bld) 0.5 % 0-1 [facility] Bilirubin, totalOrdered By: Moreno Donnelly on 09-05-2024 Bilirubin [Mass/Vol] 0.23 mg/dL 0.00-1.30 [facility] Carbon dioxide, total [Moles /volume] in Central venous bloodOrdered By: Moreno Donnelly on 09-05-2024 CO2 [Moles/Vol] 22.6 mmol/L 21.0-32.0 [facility] Chloride assayOrdered By: Sussy Donnelly on 09-05-2024 Chloride [Moles/Vol] 105 mmol/L 98-108 [facility] Eosinophil percentageOrdered By: Moreno Donnelly on 09-05-2024 Eosinophils/100 WBC (Bld) 1.6 % 0-5 [facility] Erythrocyte distribution wid th ratioOrdered By: Moreno Donnelly on 09-05-2024 Erythrocyte distribution width (RBC) [Ratio] 14.6 % 11.6-14.6 [facility] Erythrocyte distribution wid th standard deviationOrdered By: Moreno Donnelly on 09-05-2024 Erythrocyte distribution width (RBC) [Ratio] 49.6 fl High 35.1-43.9 [facility] Erythrocyte sedimentation ra teOrdered By: Moreno Donnelly on 09-05-2024 ESR (Bld) [Velocity] 24 mm/h 0-30 [facility] Folate [Mass/volume] in Seru m or PlasmaOrdered By: Moreno Donnelly on 09-05-2024 Folate [Mass/Vol] 13.10 ng/mL 4.60-34.80 [facility] Glomerular filtration rate ( GFR) estimation/1.73 sq m using serum, plasma, or whole bOrdered By: Moreno Donnelly on 09-05-2024 GFR/1.73 sq M.predicted among non-blacks MDRD (S/P/Bld) [Vol rate/Area] 40 mL/min/{1.73_m2} Low >60 [facility] Hematocrit Auto (Bld) [Volum e fraction]Ordered By: Moreno Donnelly on 09-05-2024 Hematocrit (Bld) [Volume fraction] 34.0 % Low 37-47 [facility] Hemoglobin measurementOrdere d By: Moreno Donnelly on 09-05-2024 Hemoglobin (Bld) [Mass/Vol] 10.5 g/dL Low 12.0-15.0 [facility] Immature granulocytes/100 WB C Auto (Bld)Ordered By: Moreno Donnelly on 09-05-2024 Immature granulocytes/100 WBC (Bld) 0.800 % 0.0-0.9 [facility] Iron measurement (mass/mass) Ordered By: Moreno Donnelly on 09-05-2024 Iron (Unsp spec) [Mass/Mass] 44 ug/dL Low 50-170 [facility] MCV (mean corpuscular volume ) determinationOrdered By: Moreno Donnelly on 09-05-2024 MCV (RBC) [Entitic vol] 93.2 fL 81-99 [facility] Mean corpuscular hemoglobin (MCH) determinationOrdered By: Moreno Donnelly on 09-05-2024 MCH (RBC) [Entitic mass] 28.8 pg 27.0-32.0 [facility] Monocyte percentageOrdered B y: Moreno Donnelly on 09-05-2024 Monocytes/100 WBC (Bld) 7.1 % 0-10 [facility] Neutrophil percentageOrdered By: Moreno Donnelly on 09-05-2024 Neutrophils/100 WBC (Bld) 70.8 % High 47-70 [facility] No Panel InformationOrdered By: Moreno Donnelly on 09-05-2024 Addendum Document Comment . [facility] 16 U/L <32 [facility] Platelet countOrdered By: Sussy Donnelly on 09-05-2024 Platelets (Bld) [#/Vol] 479 10*3/uL High 150-450 [facility] Potassium measurement (mass/ volume)Ordered By: Moreno Donnelly on 09-05-2024 Potassium (Unsp spec) [Mass/Vol] 4.0 mmol/L 3.3-5.1 [facility] Protein Fractions Elph [Inte rp]Ordered By: Moreno Donnelly on 09-05-2024 Protein Fractions [Interp] Comment . [facility] RBC Auto (Bld) [#/Vol]Ordere d By: Moreno Donnelly on 09-05-2024 RBC (Bld) [#/Vol] 3.65 10*6/uL Low 4.2-5.4 [facility] Serum albumin to globulin ra moody by protein electrophoresisOrdered By: Moreno Donnelly on 09-05-2024 Albumin/Globulin Elph [Mass ratio] 0.8 0.7-1.7 [facility] Serum creatinine measurement (mass/volume)Ordered By: Moreno Donnelly on 09-05-2024 Creatinine [Mass/Vol] 1.40 mg/dL High 0.70-1.20 [facility] Serum globulin measurementOr dered By: Moreno Donnelly on 09-05-2024 Globulin (S) [Mass/Vol] 3.7 g/dL 2.2-4.2 [facility] Serum globulin measurement ( mass/volume)Ordered By: Moreno Donnelly on 09-05-2024 Globulin (S) [Mass/Vol] 3.8 g/dL 2.2-3.9 [facility] Serum glucose measurement (m ass/volume)Ordered By: Moreno Donnelly on 09-05-2024 Glucose [Mass/Vol] 78 mg/dL 70-99 [facility] Serum or plasma C reactive p rotein measurement (mass/volume)Ordered By: Moreno Donnelly on 09-05-2024 CRP [Mass/Vol] 34.90 mg/L High 0.0-3.0 [facility] Serum or plasma alanine castro otransferase (ALT) measurementOrdered By: Moreno Donnelly on 09-05-2024 ALT [Catalytic activity/Vol] 7 U/L <35 [facility] Serum or plasma albumin nga urement (mass/volume)Ordered By: Moreno Donnelly on 09-05-2024 Albumin [Mass/Vol] 3.6 g/dL 3.4-4.8 [facility] Serum or plasma albumin/glob ulin mass ratioOrdered By: Moreno Donnelly on 09-05-2024 Albumin/Globulin [Mass ratio] 1.0 {ratio} 0.9-2.4 [facility] Serum or plasma alkaline heidy sphatase measurementOrdered By: Moreno Donnelly on 09-05-2024 ALP [Catalytic activity/Vol] 99 U/L 35-104 [facility] Serum or plasma beta globuli n measurement by electrophoresis (mass/volume)Ordered By: Moreno Donnelly on 09-05-2024 Beta globulin Elph [Mass/Vol] 1.2 g/dL 0.7-1.3 [facility] Serum or plasma calcium nga urement (mass/volume)Ordered By: Moreno Donnelly on 09-05-2024 Calcium [Mass/Vol] 9.7 mg/dL 7.6-11.0 [facility] Serum or plasma ferritin molly surement (mass/volume)Ordered By: Moreno Donnelly on 09-05-2024 Ferritin [Mass/Vol] 79 ng/mL 22-378 [facility] Serum or plasma protein nga urement (mass/volume)Ordered By: Moreno Donnelly on 09-05-2024 Protein [Mass/Vol] 6.7 g/dL 6.0-8.5 [facility] Serum or plasma protein mono clonal measurement by electrophoresis (mass/volume)Ordered By: Moreno Donnelly on 09-05-2024 Protein.monoclonal Elph [Mass/Vol] Not Observed g/dL Not Observed [facility] Serum or plasma urea nitroge n measurement (mass/volume)Ordered By: Moreno Donnelly on 09-05-2024 Urea nitrogen [Mass/Vol] 30 mg/dL High 4-19 [facility] Serum rheumatoid factor dete ctionOrdered By: Moreno Donnelly on 09-05-2024 Rheumatoid factor Ql (S) < 10.0 IU/mL <15 [facility] Sodium levelOrdered By: Diomedes Donnelly on 09-05-2024 Sodium [Moles/Vol] 143 mmol/L 133-145 [facility] TSH DL <= 0.005 mIU/L QnOrde red By: Moreno Donnelly on 09-05-2024 TSH Qn 1.710 uIU/mL 0.300-4.20 0 [facility] Total proteinOrdered By: Stephanie Donnelly on 09-05-2024 Protein [Mass/Vol] 7.3 g/dL 5.9-8.4 [facility] White blood cell (WBC) count Ordered By: Moreno Donnelly on 09-05-2024 WBC (Bld) [#/Vol] 8.7 10*3/uL 4.4-11.0 [facility] Bone density reportOrdered B y: Lance Back on 08-23-2024 Study report Skeletal system DXA [facility] Gram stainOrdered By: Peter Ambrocio on 08-23-2024 Microscopic observation Gram stain Nom (Unsp spec) [facility] Microbial respiratory cultur eOrdered By: Peter Ambrocio on 08-23-2024 Microorganism identified Cx Nom (Unsp spec) Pseudomonas aeruginosa Abnormal [facility] Absolute lymphocyte countOrd ered By: Moreno Donnelly on 07-25-2024 Lymphocytes Auto (Unsp spec) [#/Vol] 0.78 10*3/uL Low 0.83-4.51 [facility] Anion gap in Serum or Plasma Ordered By: Moreno Donnelly on 07-25-2024 Anion gap [Moles/Vol] 13 mmol/L 5-15 [facility] Automated lymphocyte count a s percentage of total leukocytesOrdered By: Moreno Donnelly on 07-25-2024 Lymphocytes/100 WBC Auto (Unsp spec) 13.9 % Low 19-41 [facility] BUN/creatinine ratioOrdered By: Moreno Donnelly on 07-25-2024 Urea nitrogen/Creatinine [Mass ratio] 16.9 mg/mg 10-20 [facility] Basophil percentageOrdered B y: Moreno Donnelly on 07-25-2024 Basophils/100 WBC (Bld) 0.4 % 0-1 [facility] Carbon dioxide, total [Moles /volume] in Central venous bloodOrdered By: Moreno Donnelly on 07-25-2024 CO2 [Moles/Vol] 25.2 mmol/L 21.0-32.0 [facility] Chloride assayOrdered By: Sussy Donnelly on 07-25-2024 Chloride [Moles/Vol] 105 mmol/L 98-108 [facility] Eosinophil percentageOrdered By: Moreno Donnelly on 07-25-2024 Eosinophils/100 WBC (Bld) 4.6 % 0-5 [facility] Erythrocyte distribution wid th ratioOrdered By: Moreno Donnelly on 07-25-2024 Erythrocyte distribution width (RBC) [Ratio] 15.7 % High 11.6-14.6 [facility] Erythrocyte distribution wid th standard deviationOrdered By: Moreno Donnelly on 07-25-2024 Erythrocyte distribution width (RBC) [Ratio] 54.3 fl High 35.1-43.9 [facility] Glomerular filtration rate ( GFR) estimation/1.73 sq m using serum, plasma, or whole bOrdered By: Moreno Donnelly on 07-25-2024 GFR/1.73 sq M.predicted among non-blacks MDRD (S/P/Bld) [Vol rate/Area] 45 mL/min/{1.73_m2} Low >60 [facility] Hematocrit Auto (Bld) [Volum e fraction]Ordered By: Moreno Donnelly on 07-25-2024 Hematocrit (Bld) [Volume fraction] 36.4 % Low 37-47 [facility] Hemoglobin measurementOrdere d By: Moreno Donnelly on 07-25-2024 Hemoglobin (Bld) [Mass/Vol] 11.2 g/dL Low 12.0-15.0 [facility] Immature granulocytes/100 WB C Auto (Bld)Ordered By: Moreno Donnelly on 07-25-2024 Immature granulocytes/100 WBC (Bld) 0.500 % 0.0-0.9 [facility] MCV (mean corpuscular volume ) determinationOrdered By: Moreno Donnelly on 07-25-2024 MCV (RBC) [Entitic vol] 94.8 fL 81-99 [facility] Mean corpuscular hemoglobin (MCH) determinationOrdered By: Moreno Donnelly on 07-25-2024 MCH (RBC) [Entitic mass] 29.2 pg 27.0-32.0 [facility] Monocyte percentageOrdered B y: Moreno Donnelly on 07-25-2024 Monocytes/100 WBC (Bld) 7.7 % 0-10 [facility] Neutrophil percentageOrdered By: Moreno Donnelly on 07-25-2024 Neutrophils/100 WBC (Bld) 72.9 % High 47-70 [facility] Platelet countOrdered By: Sussy Donnelly on 07-25-2024 Platelets (Bld) [#/Vol] 204 10*3/uL 150-450 [facility] Potassium measurement (mass/ volume)Ordered By: Moreno Donnelly on 07-25-2024 Potassium (Unsp spec) [Mass/Vol] 3.7 mmol/L 3.3-5.1 [facility] RBC Auto (Bld) [#/Vol]Ordere d By: Moreno Donnelly on 07-25-2024 RBC (Bld) [#/Vol] 3.84 10*6/uL Low 4.2-5.4 [facility] Serum creatinine measurement (mass/volume)Ordered By: Moreno Donnelly on 07-25-2024 Creatinine [Mass/Vol] 1.27 mg/dL High 0.70-1.20 [facility] Serum glucose measurement (m ass/volume)Ordered By: Moreno Donnelly on 07-25-2024 Glucose [Mass/Vol] 113 mg/dL High 70-99 [facility] Serum or plasma C reactive p rotein measurement (mass/volume)Ordered By: Moreno Donnelly on 07-25-2024 CRP [Mass/Vol] 35.90 mg/L High 0.0-3.0 [facility] Serum or plasma calcium nga urement (mass/volume)Ordered By: Moreno Donnelly on 07-25-2024 Calcium [Mass/Vol] 9.4 mg/dL 7.6-11.0 [facility] Serum or plasma urea nitroge n measurement (mass/volume)Ordered By: Moreno Donnelly on 07-25-2024 Urea nitrogen [Mass/Vol] 22 mg/dL High 4-19 [facility] Sodium levelOrdered By: Diomedes Donnelly on 07-25-2024 Sodium [Moles/Vol] 143 mmol/L 133-145 [facility] White blood cell (WBC) count Ordered By: Moreno Donnelly on 07-25-2024 WBC (Bld) [#/Vol] 5.6 10*3/uL 4.4-11.0 [facility] Venous duplex ultrasound rep ortOrdered By: Cal Lewis on 07-19-2024 US Vein [facility] Work Phone: ALP [Catalytic activity/Vol] Ordered By: Filemon Danielle on 05-23-2024 Serum or plasma alkaline phosphatase measurement 128 U/L High 35-104 [facility] ALT [Catalytic activity/Vol] Ordered By: Filemon Danielle on 05-23-2024 Serum or plasma alanine aminotransferase (ALT) measurement 11 U/L <35 [facility] Albumin [Mass/Vol]Ordered By : Filemon Danielle on 05-23-2024 Serum or plasma albumin measurement (mass/volume) 3.8 g/dL 3.4-4.8 [facility] Bilirubin directOrdered By: Filemon Danielle on 05-23-2024 Bilirubin.direct [Mass/Vol] 0.12 mg/dL 0.00-0.30 [facility] Bilirubin, totalOrdered By: Filemon Danielle on 05-23-2024 Bilirubin [Mass/Vol] 0.28 mg/dL 0.00-1.30 [facility] Bilirubin, total 0.28 mg/dL 0.00-1.30 [facility] Bilirubin.direct [Mass/Vol]O rdered By: Filemon Danielle on 05-23-2024 Bilirubin direct 0.12 mg/dL 0.00-0.30 [facility] Calculated very low density lipoprotein (VLDL) cholesterol measurementOrdered By: Filemon Danielle on 05-23-2024 Calculated very low density lipoprotein (VLDL) cholesterol measurement 25 mg/dL 5-40 [facility] Calculated very low density lipoprotein (VLDL) cholesterol measurement 25 mg/dL 5-40 [facility] Cholesterol [Mass/Vol]Ordere d By: Filemon Danielle on 05-23-2024 Serum or plasma cholesterol measurement (mass/volume) 143 mg/dL <201 [facility] Cholesterol in HDL [Mass/Vol ]Ordered By: Filemon Danielle on 05-23-2024 Serum or plasma cholesterol in HDL measurement (mass/volume) 46 mg/dL >40 [facility] LDL calc ser/plasOrdered By: Filemon Danielle on 05-23-2024 Cholesterol in LDL [Mass/Vol] 72 mg/dL [facility] LDL calc ser/plas 72 mg/dL [facility] No Panel InformationOrdered By: Filemon Danielle on 05-23-2024 16 U/L <32 [facility] Screening total cholesterol/ high density lipoprotein (HDL) cholesterol ratioOrdered By: Filemon Danielle on 05-23-2024 Screening total cholesterol/high density lipoprotein (HDL) cholesterol ratio 3.11 [facility] Serum globulin measurementOr dered By: Filemon Danielle on 05-23-2024 Globulin (S) [Mass/Vol] 3.9 g/dL 2.2-4.2 [facility] Serum globulin measurement 3.9 g/dL 2.2-4.2 [facility] Serum or plasma alanine castro otransferase (ALT) measurementOrdered By: Filemon Danielle on 05-23-2024 ALT [Catalytic activity/Vol] 11 U/L <35 [facility] Serum or plasma albumin nga urement (mass/volume)Ordered By: Filemon Danielle on 05-23-2024 Albumin [Mass/Vol] 3.8 g/dL 3.4-4.8 [facility] Serum or plasma alkaline heidy sphatase measurementOrdered By: Filemon Danielle on 05-23-2024 ALP [Catalytic activity/Vol] 128 U/L High 35-104 [facility] Serum or plasma cholesterol in HDL measurement (mass/volume)Ordered By: Filemon Danielle on 05-23-2024 Cholesterol in HDL [Mass/Vol] 46 mg/dL >40 [facility] Serum or plasma cholesterol measurement (mass/volume)Ordered By: Filemon Danielle on 05-23-2024 Cholesterol [Mass/Vol] 143 mg/dL <201 [facility] Total proteinOrdered By: John Danielle on 05-23-2024 Protein [Mass/Vol] 7.7 g/dL 5.9-8.4 [facility] Total protein 7.7 g/dL 5.9-8.4 [facility] Triglycerides measurementOrd ered By: Filemon Danielle on 05-23-2024 Triglycerides measurement 125 mg/dL <199 [facility] Anion gap [Moles/Vol]Ordered By: Moreno Donnelly on 05-10-2024 Anion gap in Serum or Plasma 22 High 5-15 [facility] Anion gap in Serum or Plasma Ordered By: Moreno Donnelly on 05-10-2024 Anion gap [Moles/Vol] 22 mmol/L High 5-15 [facility] BUN/creatinine ratioOrdered By: Moreno Donnelly on 05-10-2024 Urea nitrogen/Creatinine [Mass ratio] 19.0 mg/mg 10-20 [facility] BUN/creatinine ratio 19.0 RATIO 10-20 [facility] Calcium [Mass/Vol]Ordered By : Moreno Donnelly on 05-10-2024 Serum or plasma calcium measurement (mass/volume) 8.8 mg/dL 7.6-11.0 [facility] Carbon dioxide, total [Moles /volume] in Central venous bloodOrdered By: Moreno Donnelly on 05-10-2024 CO2 [Moles/Vol] 15.4 mmol/L Low 21.0-32.0 [facility] Carbon dioxide, total [Moles/volume] in Central venous blood 15.4 mmol/L Low 21.0-32.0 [facility] Chloride assayOrdered By: Sussy Donnelly on 05-10-2024 Chloride [Moles/Vol] 104 mmol/L 98-108 [facility] Chloride assay 104 mmol/L 98-108 [facility] Creatinine [Mass/Vol]Ordered By: Moreno Donnelly on 05-10-2024 Serum creatinine measurement (mass/volume) 1.28 mg/dL High 0.70-1.20 [facility] GFR/1.73 sq M.predicted crissy g non-blacks MDRD (S/P/Bld) [Vol rate/Area]Ordered By: Moreno Donnelly on 05-10-2024 Glomerular filtration rate (GFR) estimation/1.73 sq m using serum, plasma, or whole b 45 Low >60 [facility] Glomerular filtration rate ( GFR) estimation/1.73 sq m using serum, plasma, or whole bOrdered By: Moreno Donnelly on 05-10-2024 GFR/1.73 sq M.predicted among non-blacks MDRD (S/P/Bld) [Vol rate/Area] 45 mL/min/{1.73_m2} Low >60 [facility] Glucose [Mass/Vol]Ordered By : Moreno Donnelly on 05-10-2024 Serum glucose measurement (mass/volume) 77 mg/dL 70-99 [facility] Potassium (Unsp spec) [Mass/ Vol]Ordered By: Moreno Donnelly on 05-10-2024 Potassium measurement (mass/volume) 4.0 mmol/L 3.3-5.1 [facility] Potassium measurement (mass/ volume)Ordered By: Moreno Donnelly on 05-10-2024 Potassium (Unsp spec) [Mass/Vol] 4.0 mmol/L 3.3-5.1 [facility] Serum creatinine measurement (mass/volume)Ordered By: Moreno Donnelly on 05-10-2024 Creatinine [Mass/Vol] 1.28 mg/dL High 0.70-1.20 [facility] Serum glucose measurement (m ass/volume)Ordered By: Moreno Donnelly on 05-10-2024 Glucose [Mass/Vol] 77 mg/dL 70-99 [facility] Serum or plasma calcium nga urement (mass/volume)Ordered By: Moreno Donnelly on 05-10-2024 Calcium [Mass/Vol] 8.8 mg/dL 7.6-11.0 [facility] Serum or plasma urea nitroge n measurement (mass/volume)Ordered By: Moreno Donnelly on 05-10-2024 Urea nitrogen [Mass/Vol] 24 mg/dL High 4-19 [facility] Sodium levelOrdered By: Diomedes Donnelly on 05-10-2024 Sodium [Moles/Vol] 141 mmol/L 133-145 [facility] Sodium level 141 mmol/L 133-145 [facility] Urea nitrogen [Mass/Vol]Orde red By: Moreno Donnelly on 05-10-2024 Serum or plasma urea nitrogen measurement (mass/volume) 24 mg/dL High 4-19 [facility] CNOVon 05-01-2024 CNOV Office Visit (OBGYWM ) -- LAURA STARK ([id number]) 1955 F Date Time Provider Department 05/01/24 1:00 PM LINDA RESTREPO OBGYWAmy During your visit today, we recorded the following information about you: Blood pressure Weight 120/68 85.7 kg Linda Restrepo APRN.CNM 05/07/2024 8:58 AM Signed Laura Reyes Lincoln is a 69 year old female who presents for problem visit for HPI: Presents today vulvar lump. Denies any pain, drainage or trauma to the area. Is not able to visualize but feels it present. Wears pads due to incontinence. Feels this started a few weeks ago. 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 DVT (deep venous thrombosis) ([facility]) 1995 Rt lower leg Embolism and thrombosis of unspecified site 10/28/2005 PE (pulmonary embolism) Recurrent ventral incisional hernia 08/03/2012 Sepsis ([facility]) Unspecified asthma(493.90) Unspecified essential hypertension PAST SURGICAL HISTORY Procedure Laterality Date APPENDECTOMY DELIVERY ONLY , low cervical COLONOSCOPY FLX DX W/COLLJ SPEC WHEN PFRMD 01-09-13 DEBRIDEMENT SUBCUTANEOUS TISSUE 20 SQ CM/< 02-10-12 ENTEROLSS FRING INTSTINAL ADHESION SPX 03-24-12 FILTER PLACEMENT (VENA CAVA) 01-15-13 FNA WITH IMAGING 05/26/11 U/S FNA left thyroid nodule IMPLANT MESH OPN HERNIA RPR/DEBRIDEMENT CLOSURE 01-31-12 INSJ NON-TUNNELED CENTRAL VENOUS CATH AGE 4 YR/> 03-24-12 LAPS RPR RECURRENT INCAL HRNA NCRC8/STRANGULATED 01-18-13 PAST SURGICAL HISTORY OF 2003 right ankle surgery-fusion PAST SURGICAL HISTORY OF 2009 right shoulder partial replacement RPR 1ST INCAL/VNT HERNIA INCARCERATED 01-31-12 TOTAL ABDOMINAL HYSTERECT W/WO RMVL TUBE OVARY 1996 Hysterectomy, RONN TRANSCATH RETRIEVAL,PERCUT 02-21-13 FILTER REMOVAL FAMILY HISTORY Problem Relation Age of Onset Diabetes Mother Hypertension Mother Ischemic Heart Disease Mother Cancer Father skin Hypertension Father Diabetes Sister Hypertension Sister Diabetes Sister Hypertension Sister Blood Clots Sister Diabetes Sister Hypertension Sister Cancer Maternal Grandmother colon Hypertension Maternal Grandfather Ischemic Heart Disease Maternal Grandfather Diabetes Maternal Grandfather Cancer Paternal Grandfather leukemia Colon Cancer Maternal Uncle Colon Cancer Maternal Uncle Social History Tobacco Use Smoking status: Former Current packs/day: 0.00 Average packs/day: 1 pack/day for 20.0 years (20.0 ttl pk-yrs) Types: Cigarettes Start date: 10/29/1975 Quit date: 10/29/1995 Years since quittin.5 Smokeless tobacco: Never Vaping Use Vaping status: Never Used Substance Use Topics Alcohol use: No Drug use: No Current Outpatient Medications Medication Sig semaglutide, weight loss, (WEGOVY) 1 mg/0.5 mL pen injector Inject 1 mg subcutaneously one time a week. Compound formula atorvastatin (LIPITOR) 10 mg tablet famotidine (PEPCID) 40 mg tablet Take 40 mg by mouth. latanoprost (XALATAN) 0.005 % ophthalmic solution levothyroxine (SYNTHROID) 25 mcg tablet esomeprazole (NEXIUM) 40 mg capsule Take 40 mg by mouth DAILY (6 AM). Cholecalciferol, Vitamin D3, 50 mcg (2,000 unit) cap Take by mouth. acetaminophen (TYLENOL) 500 mg tablet Take 1,000 mg by mouth twice daily. fluticasone-salmeterol HFA (ADVAIR) 230-21 mcg/actuation inhaler Inhale 2 Puffs as instructed twice daily. furosemide (LASIX) 20 mg tablet Take 20 mg by mouth twice daily. Pt is taking 30 mg daily potassium chloride ER (K-DUR, KLOR-CON) 20 mEq tablet Take 20 mEq by mouth twice daily. L. acidophilus/Bifid. animalis (DAILY PROBIOTIC ORAL) Take by mouth. diltiazem CD (CARDIZEM CD) 180 mg 24 hr capsule Take 2 capsules by mouth once daily. apixaban (ELIQUIS) 5 mg tab tab(s) Take 1 tablet by mouth twice daily. albuterol (PROVENTIL) 2.5 mg /3 mL (0.083 %) nebulizer solution Use 2.5 mg via nebulizer every 4 hours as needed. montelukast (SINGULAIR) 10 mg tablet Take 10 mg by mouth daily at bedtime. fluticasone (FLONASE) 50 mcg/actuation nasal spray Use 1 [place] in each nostril twice daily. acetaminophen 650 mg CR tablet Take 1,300 mg by mouth at bedtime as needed. albuterol HFA (PROVENTIL HFA, VENTOLIN HFA) 90 mcg/actuation inhaler Inhale 2 Puffs as instructed every 4 hours as needed. ondansetron orally disintegrating (ZOFRAN ODT) 4 mg disintegrating tablet (Patient not taking: Reported on 10/03/2023) clobetasol (TEMOVATE) 0.05 % cream Apply to affected area 2x/day for 2 weeks, then 1x/day for a week. (Patient not taking: Report (more content not included)... Normal [facility] Anion gap [Moles/Vol]Ordered By: Moreno Donnelly on 04-24-2024 Anion gap in Serum or Plasma 16 High - [facility] Anion gap in Serum or Plasma Ordered By: Moreno Donnelly on 04-24-2024 Anion gap [Moles/Vol] 16 mmol/L High - [facility] BUN/creatinine ratioOrdered By: Moreno Donnelly on 04-24-2024 Urea nitrogen/Creatinine [Mass ratio] 22.6 mg/mg High 12-03 [facility] BUN/creatinine ratio 22.6 RATIO High - [facility] CRP [Mass/Vol]Ordered By: Sussy Donnelly on 04-24-2024 Serum or plasma C reactive protein measurement (mass/volume) 19.40 mg/L High 0.0-3.0 [facility] Calcium [Mass/Vol]Ordered By : Moreno Donnelly on 04-24-2024 Serum or plasma calcium measurement (mass/volume) 9.7 mg/dL 7.6-11.0 [facility] Carbon dioxide, total [Moles /volume] in Central venous bloodOrdered By: Moreno Donnelly on 04-24-2024 CO2 [Moles/Vol] 21.3 mmol/L 21.0-32.0 [facility] Carbon dioxide, total [Moles/volume] in Central venous blood 21.3 mmol/L 21.0-32.0 [facility] Chloride assayOrdered By: Sussy Donnelly on 04-24-2024 Chloride [Moles/Vol] 106 mmol/L 98-108 [facility] Chloride assay 106 mmol/L 98-108 [facility] Creatinine [Mass/Vol]Ordered By: Moreno Donnelly on 04-24-2024 Serum creatinine measurement (mass/volume) 1.36 mg/dL High 0.70-1.20 [facility] GFR/1.73 sq M.predicted crissy g non-blacks MDRD (S/P/Bld) [Vol rate/Area]Ordered By: Moreno Donnelly on 04-24-2024 Glomerular filtration rate (GFR) estimation/1.73 sq m using serum, plasma, or whole b 42 Low >60 [facility] Glomerular filtration rate ( GFR) estimation/1.73 sq m using serum, plasma, or whole bOrdered By: Moreno Donnelly on 04-24-2024 GFR/1.73 sq M.predicted among non-blacks MDRD (S/P/Bld) [Vol rate/Area] 42 mL/min/{1.73_m2} Low >60 [facility] Glucose [Mass/Vol]Ordered By : Moreno Donnelly on 04-24-2024 Serum glucose measurement (mass/volume) 71 mg/dL 70-99 [facility] PTH intactOrdered By: Ramirez Donnelly on 04-24-2024 PTH intact 92 pg/mL High 11-61 [facility] Potassium (Unsp spec) [Mass/ Vol]Ordered By: Moreno Donnelly on 04-24-2024 Potassium measurement (mass/volume) 4.0 mmol/L 3.3-5.1 [facility] Potassium measurement (mass/ volume)Ordered By: Moreno Donnelly on 04-24-2024 Potassium (Unsp spec) [Mass/Vol] 4.0 mmol/L 3.3-5.1 [facility] Serum creatinine measurement (mass/volume)Ordered By: Moreno Donnelly on 04-24-2024 Creatinine [Mass/Vol] 1.36 mg/dL High 0.70-1.20 [facility] Serum glucose measurement (m ass/volume)Ordered By: Moreno Donnelly on 04-24-2024 Glucose [Mass/Vol] 71 mg/dL 70-99 [facility] Serum or plasma C reactive p rotein measurement (mass/volume)Ordered By: Moreno Donnelly on 04-24-2024 CRP [Mass/Vol] 19.40 mg/L High 0.0-3.0 [facility] Serum or plasma calcium nga urement (mass/volume)Ordered By: Moreno Donnelly on 04-24-2024 Calcium [Mass/Vol] 9.7 mg/dL 7.6-11.0 [facility] Serum or plasma urea nitroge n measurement (mass/volume)Ordered By: Moreno Donnelly on 04-24-2024 Urea nitrogen [Mass/Vol] 31 mg/dL High 06-02 [facility] Sodium levelOrdered By: Diomedes Donnelly on 04-24-2024 Sodium [Moles/Vol] 143 mmol/L 133-145 [facility] Sodium level 143 mmol/L 133-145 [facility] Urea nitrogen [Mass/Vol]Orde red By: Moreno Donnelly on 04-24-2024 Serum or plasma urea nitrogen measurement (mass/volume) 31 mg/dL High - [facility] Acid fast bacillus (AFB) cul tureOrdered By: Peter Ambrocio on 04-21-2024 Mycobacterium sp identified Org specific cx Nom (Unsp spec) [facility] Acid fast bacillus (AFB) cul tureOrdered By: Peter Ambrocio on 04-20-2024 Mycobacterium sp identified Org specific cx Nom (Unsp spec) [facility] Gram stainOrdered By: Peter Ambrocio on 04-20-2024 Microscopic observation Gram stain Nom (Unsp spec) [facility] Microbial respiratory cultur eOrdered By: Peter Ambrocio on 04-20-2024 Microorganism identified Cx Nom (Unsp spec) Pseudomonas aeruginosa Abnormal [facility] Microorganism identified Cx Nom (Unsp spec)Ordered By: Peter Ambrocio on 04-20-2024 Microbial respiratory culture Pseudomonas aeruginosa Abnormal [facility] Acid fast bacillus (AFB) cul tureOrdered By: Peter Ambrocio on 04-19-2024 Mycobacterium sp identified Org specific cx Nom (Unsp spec) [facility] Absolute lymphocyte countOrd ered By: Peter Ambrocio on 04-18-2024 Lymphocytes Auto (Unsp spec) [#/Vol] 1.93 10*3/uL 0.83-4.51 [facility] Absolute neutrophil countOrd ered By: Peter Ambrocio on 04-18-2024 Absolute neutrophil count 5.7 X10^3/uL 2.0-7.7 [facility] Automated lymphocyte count a s percentage of total leukocytesOrdered By: Peter Ambrocio on 04-18-2024 Lymphocytes/100 WBC Auto (Unsp spec) 22.5 % 19-41 [facility] Basophil percentageOrdered B y: Peter Ambrocio on 04-18-2024 Basophils/100 WBC (Bld) 0.6 % 0-1 [facility] Basophil percentage 0.6 % 0-1 [facility] Eosinophil percentageOrdered By: Peter Ambrocio on 04-18-2024 Eosinophils/100 WBC (Bld) 1.8 % 0-5 [facility] Eosinophil percentage 1.8 % 0-5 [facility] Erythrocyte distribution wid th (RBC) [Ratio]Ordered By: Peter Ambrocio on 04-18-2024 Erythrocyte distribution width ratio 14.7 % High 11.6-14.6 [facility] Erythrocyte distribution width standard deviation 51.2 fl High 35.1-43.9 [facility] Erythrocyte distribution wid th ratioOrdered By: Peter Ambrocio on 04-18-2024 Erythrocyte distribution width (RBC) [Ratio] 14.7 % High 11.6-14.6 [facility] Erythrocyte distribution wid th standard deviationOrdered By: Peter Ambrocio on 04-18-2024 Erythrocyte distribution width (RBC) [Ratio] 51.2 fl High 35.1-43.9 [facility] Gram stainOrdered By: Peter Ambrocio on 04-18-2024 Microscopic observation Gram stain Nom (Unsp spec) [facility] Hematocrit Auto (Bld) [Volum e fraction]Ordered By: Peter Ambrocio on 04-18-2024 Hematocrit (Bld) [Volume fraction] 35.3 % Low 37-47 [facility] Automated blood hematocrit (percentage) 35.3 % Low 37-47 [facility] Hemoglobin measurementOrdere d By: Peter Ambrocio on 04-18-2024 Hemoglobin (Bld) [Mass/Vol] 10.8 g/dL Low 12.0-15.0 [facility] Hemoglobin measurement 10.8 g/dL Low 12.0-15.0 [facility] Immature granulocytes/100 WB C Auto (Bld)Ordered By: Peter Ambrocio on 04-18-2024 Immature granulocytes/100 WBC (Bld) 0.200 % 0.0-0.9 [facility] Automated immature granulocyte percentage 0.200 % 0.0-0.9 [facility] Lymphocytes Auto (Unsp spec) [#/Vol]Ordered By: Peter Ambrocio on 04-18-2024 Absolute lymphocyte count 1.93 X10^3/uL 0.83-4.51 [facility] Lymphocytes/100 WBC Auto (Un sp spec)Ordered By: Peter Ambrocio on 04-18-2024 Automated lymphocyte count as percentage of total leukocytes 22.5 % 19-41 [facility] MCV (RBC) [Entitic vol]Order ed By: Peter Ambrocio on 04-18-2024 MCV (mean corpuscular volume) determination 94.6 fL 81-99 [facility] MCV (mean corpuscular volume ) determinationOrdered By: Peter Ambrocio on 04-18-2024 MCV (RBC) [Entitic vol] 94.6 fL 81-99 [facility] Mean corpuscular hemoglobin (MCH) determinationOrdered By: Peter Ambrocio on 04-18-2024 MCH (RBC) [Entitic mass] 29.0 pg 27.0-32.0 [facility] Mean corpuscular hemoglobin (MCH) determination 29.0 pg 27.0-32.0 [facility] Mean corpuscular hemoglobin concentration (MCHC) determinationOrdered By: Peter Ambrocio on 04-18-2024 Mean corpuscular hemoglobin concentration (MCHC) determination 30.6 g/dL Low 32-36 [facility] Mean platelet volume determi nationOrdered By: Peter Ambrocio on 04-18-2024 Mean platelet volume determination 10.1 fl 6.2-12.0 [facility] Microbial respiratory cultur eOrdered By: Peter Ambrocio on 04-18-2024 Microorganism identified Cx Nom (Unsp spec) Pseudomonas aeruginosa Abnormal [facility] Microorganism identified Cx Nom (Unsp spec)Ordered By: Peter Ambrocio on 04-18-2024 Microbial respiratory culture Pseudomonas aeruginosa Abnormal [facility] Monocyte percentageOrdered B y: Peter Ambrocio on 04-18-2024 Monocytes/100 WBC (Bld) 9.0 % 0-10 [facility] Monocyte percentage 9.0 % 0-10 [facility] Neutrophil percentageOrdered By: Peter Ambrocio on 04-18-2024 Neutrophils/100 WBC (Bld) 65.9 % 47-70 [facility] Neutrophil percentage 65.9 % 47-70 [facility] Nucleated red blood cell per centageOrdered By: Peter Ambrocio on 04-18-2024 Nucleated red blood cell percentage 0 % 0-5 [facility] Platelet countOrdered By: Billie Ambrocio on 04-18-2024 Platelets (Bld) [#/Vol] 385 10*3/uL 150-450 [facility] Platelet count 385 K/mm3 150-450 [facility] RBC Auto (Bld) [#/Vol]Ordere d By: Peter Ambrocio on 04-18-2024 RBC (Bld) [#/Vol] 3.73 10*6/uL Low 4.2-5.4 [facility] Automated blood erythrocyte count 3.73 M/mm3 Low 4.2-5.4 [facility] White blood cell (WBC) count Ordered By: Peter Ambrocio on 04-18-2024 WBC (Bld) [#/Vol] 8.6 10*3/uL 4.4-11.0 [facility] White blood cell (WBC) count 8.6 K/mm3 4.4-11.0 [facility] Urine cultureOrdered By: Hayden Arteaga on 04-11-2024 Bacteria identified Cx Nom (U) Culture exhibits no growth. [facility] Urine culture Culture exhibits no growth. [facility] 49-CG-Vhcofug DOrdered By: Anam Donnelly on 03-08-2024 29-LG-Obhgxae D 76.2 ng/mL [facility] IVAN serumOrdered By: Ronnie Donnelly on 03-08-2024 IVAN serum Negative Negative [facility] Blood urea nitrogen (BUN)/cr eatinine ratioOrdered By: Moreno Donnelly on 03-08-2024 Blood urea nitrogen (BUN)/creatinine ratio 14.9 RATIO 10-20 [facility] C-reactive protein measureme nt by high sensitivity methodOrdered By: Moreno Donnelly on 03-08-2024 C-reactive protein measurement by high sensitivity method 25.10 mg/L High 0.0-3.0 [facility] Calcium [Mass/Vol]Ordered By : Moreno Donnelly on 03-08-2024 Serum or plasma calcium measurement (mass/volume) 9.8 mg/dL 8.5-10.1 [facility] Carbon dioxide measurementOr dered By: Moreno Donnelly on 03-08-2024 Carbon dioxide measurement 24.0 mmol/L 21.0-32.0 [facility] Chloride measurementOrdered By: Moreno Donnelly on 03-08-2024 Chloride measurement 107 mmol/L 98-107 [facility] Creatinine [Mass/Vol]Ordered By: Moreno Donnelly on 03-08-2024 Serum or plasma creatinine measurement (mass/volume) 1.48 mg/dL High 0.55-1.02 [facility] ESR (Bld) [Velocity]Ordered By: Moreno Donnelly on 03-08-2024 Erythrocyte sedimentation rate 41 mm/hr High 0-30 [facility] Erythrocyte distribution wid th (RBC) [Ratio]Ordered By: Moreno Donnelly on 03-08-2024 Erythrocyte distribution width ratio 15.2 % High 11.6-14.6 [facility] Erythrocyte distribution width standard deviation 55.0 fl High 35.1-43.9 [facility] Estimated glomerular filtrat ion rate (GFR) AmericanOrdered By: Moreno Donnelly on 03-08-2024 Estimated glomerular filtration rate (GFR) 45 mL/min Low >60 [facility] Glomerular filtration rate ( GFR) estimationOrdered By: Moreno Donnelly on 03-08-2024 Glomerular filtration rate (GFR) estimation 37 mL/min Low >60 [facility] Glucose measurementOrdered B y: Moreno Donnelly on 03-08-2024 Glucose measurement 78 mg/dL 74-106 [facility] Hematocrit Auto (Bld) [Volum e fraction]Ordered By: Moreno Donnelly on 03-08-2024 Automated blood hematocrit (percentage) 34.9 % Low 37-47 [facility] Hemoglobin measurementOrdere d By: Moreno Donnelly on 03-08-2024 Hemoglobin measurement 10.3 g/dL Low 12.0-15.0 [facility] Intact parathyroid hormone ( iPTH) measurementOrdered By: Moreno Donnelly on 03-08-2024 Intact parathyroid hormone (iPTH) measurement 82.2 pg/mL High 18.4-80.1 [facility] Iron (Unsp spec) [Mass/Mass] Ordered By: Moreno Donnelly on 03-08-2024 Iron measurement (mass/mass) 52 ug/dL 50-170 [facility] MCV (RBC) [Entitic vol]Order ed By: Moreno Donnelly on 03-08-2024 MCV (mean corpuscular volume) determination 98.0 fL 81-99 [facility] Magnesium measurementOrdered By: Moreno Donnelly on 03-08-2024 Magnesium measurement 2.2 mg/dL 1.6-2.6 [facility] Mean corpuscular hemoglobin (MCH) determinationOrdered By: Moreno Donnelly on 03-08-2024 Mean corpuscular hemoglobin (MCH) determination 28.9 pg 27.0-32.0 [facility] Mean corpuscular hemoglobin concentration (MCHC) determinationOrdered By: Moreno Donnelly on 03-08-2024 Mean corpuscular hemoglobin concentration (MCHC) determination 29.5 g/dL Low 32-36 [facility] Mean platelet volume determi nationOrdered By: Moreno Donnelly on 03-08-2024 Mean platelet volume determination 10.6 fl 6.2-12.0 [facility] Platelet countOrdered By: Sussy Donnelly on 03-08-2024 Platelet count 393 K/mm3 150-450 [facility] Potassium measurementOrdered By: Moreno Donnelly on 03-08-2024 Potassium measurement 3.6 mmol/L 3.5-5.1 [facility] RBC Auto (Bld) [#/Vol]Ordere d By: Moreno Donnelly on 03-08-2024 Automated blood erythrocyte count 3.56 M/mm3 Low 4.2-5.4 [facility] Rheumatoid factor measuremen tOrdered By: Moreno Donnelly on 03-08-2024 Rheumatoid factor measurement < 10.0 IU/mL <15 [facility] Serum anion gap measurementO rdered By: Moreno Donnelly on 03-08-2024 Serum anion gap measurement 9 5-15 [facility] Sodium levelOrdered By: Diomedes Donnelly on 03-08-2024 Sodium level 140 mmol/L 136-145 [facility] TSH QnOrdered By: Ervin Donnelly on 03-08-2024 Serum or plasma thyroid stimulating hormone (TSH) measurement (units/volume) 1.690 uIU/mL 0.358-3.74 0 [facility] Urea nitrogen [Mass/Vol]Orde red By: Moreno Donnelly on 03-08-2024 Serum or plasma urea nitrogen measurement (mass/volume) 22 mg/dL High 7-18 [facility] Vitamin B12 measurementOrder ed By: Moreno Donnelly on 03-08-2024 Vitamin B12 measurement 384 pg/mL 211-911 [facility] White blood cell (WBC) count Ordered By: Moreno Donnelly on 03-08-2024 White blood cell (WBC) count 7.9 K/mm3 4.4-11.0 [facility] Absolute neutrophil countOrd ered By: Moreno Donnelly on 02-23-2024 Absolute neutrophil count 5.3 X10^3/uL 2.0-7.7 [facility] Basophil percentageOrdered B y: Moreno Donnelly on 02-23-2024 Basophil percentage 0.5 % 0-1 [facility] Blood urea nitrogen (BUN)/cr eatinine ratioOrdered By: Moreno Donnelly on 02-23-2024 Blood urea nitrogen (BUN)/creatinine ratio 11.3 RATIO 10-20 [facility] Calcium [Mass/Vol]Ordered By : Moreno Donnelly on 02-23-2024 Serum or plasma calcium measurement (mass/volume) 8.9 mg/dL 8.5-10.1 [facility] Carbon dioxide measurementOr dered By: Moreno Donnelly on 02-23-2024 Carbon dioxide measurement 25.0 mmol/L 21.0-32.0 [facility] Chloride measurementOrdered By: Moreno Donnelly on 02-23-2024 Chloride measurement 106 mmol/L 98-107 [facility] Creatinine [Mass/Vol]Ordered By: Moreno Donnelly on 02-23-2024 Serum or plasma creatinine measurement (mass/volume) 1.42 mg/dL High 0.55-1.02 [facility] Eosinophil percentageOrdered By: Moreno Donnelly on 02-23-2024 Eosinophil percentage 1.2 % 0-5 [facility] Erythrocyte distribution wid th (RBC) [Ratio]Ordered By: Moreno Donnelly on 02-23-2024 Erythrocyte distribution width ratio 14.8 % High 11.6-14.6 [facility] Erythrocyte distribution width standard deviation 53.5 fl High 35.1-43.9 [facility] Estimated glomerular filtrat ion rate (GFR) AmericanOrdered By: Moreno Donnelly on 02-23-2024 Estimated glomerular filtration rate (GFR) 47 mL/min Low >60 [facility] Glomerular filtration rate ( GFR) estimationOrdered By: Moreno Donnelly on 02-23-2024 Glomerular filtration rate (GFR) estimation 39 mL/min Low >60 [facility] Glucose measurementOrdered B y: Moreno Donnelly on 02-23-2024 Glucose measurement 96 mg/dL 74-106 [facility] Hematocrit Auto (Bld) [Volum e fraction]Ordered By: Moreno Donnelly on 02-23-2024 Automated blood hematocrit (percentage) 34.8 % Low 37-47 [facility] Hemoglobin measurementOrdere d By: Moreno Donnelly on 02-23-2024 Hemoglobin measurement 10.2 g/dL Low 12.0-15.0 [facility] Immature granulocytes/100 WB C Auto (Bld)Ordered By: Moreno Donnelly on 02-23-2024 Automated immature granulocyte percentage 0.600 % 0.0-0.9 [facility] Lymphocytes Auto (Unsp spec) [#/Vol]Ordered By: Moreno Donnelly on 02-23-2024 Absolute lymphocyte count 2.14 X10^3/uL 0.83-4.51 [facility] Lymphocytes/100 WBC Auto (Un sp spec)Ordered By: Moreno Donnelly on 02-23-2024 Automated lymphocyte count as percentage of total leukocytes 25.8 % 19-41 [facility] MCV (RBC) [Entitic vol]Order ed By: Moreno Donnelly on 02-23-2024 MCV (mean corpuscular volume) determination 98.0 fL 81-99 [facility] Mean corpuscular hemoglobin (MCH) determinationOrdered By: Moreno Donnelly on 02-23-2024 Mean corpuscular hemoglobin (MCH) determination 28.7 pg 27.0-32.0 [facility] Mean corpuscular hemoglobin concentration (MCHC) determinationOrdered By: Moreno Donnelly on 02-23-2024 Mean corpuscular hemoglobin concentration (MCHC) determination 29.3 g/dL Low 32-36 [facility] Mean platelet volume determi nationOrdered By: Moreno Donnelly on 02-23-2024 Mean platelet volume determination 10.4 fl 6.2-12.0 [facility] Monocyte percentageOrdered B y: Moreno Donnelly on 02-23-2024 Monocyte percentage 7.8 % 0-10 [facility] Neutrophil percentageOrdered By: Moreno Donnelly on 02-23-2024 Neutrophil percentage 64.1 % 47-70 [facility] Nucleated red blood cell per centageOrdered By: Moreno Donnelly on 02-23-2024 Nucleated red blood cell percentage 0 % 0-5 [facility] Platelet countOrdered By: Sussy Donnelly on 02-23-2024 Platelet count 525 K/mm3 High 150-450 [facility] Potassium measurementOrdered By: Moreno Donnelly on 02-23-2024 Potassium measurement 3.4 mmol/L Low 3.5-5.1 [facility] RBC Auto (Bld) [#/Vol]Ordere d By: Moreno Donnelly on 02-23-2024 Automated blood erythrocyte count 3.55 M/mm3 Low 4.2-5.4 [facility] Serum anion gap measurementO rdered By: Moreno Donnelly on 02-23-2024 Serum anion gap measurement 8 5-15 [facility] Sodium levelOrdered By: Diomedes Donnelly on 02-23-2024 Sodium level 140 mmol/L 136-145 [facility] Urea nitrogen [Mass/Vol]Orde red By: Moreno Donnelly on 02-23-2024 Serum or plasma urea nitrogen measurement (mass/volume) 16 mg/dL 7-18 [facility] White blood cell (WBC) count Ordered By: Moreno Donnelly on 02-23-2024 White blood cell (WBC) count 8.3 K/mm3 4.4-11.0 [facility] Blood urea nitrogen (BUN)/cr eatinine ratioOrdered By: Moreno Donnelly on 02-13-2024 Blood urea nitrogen (BUN)/creatinine ratio 9.7 RATIO Low 10-20 [facility] Calcium [Mass/Vol]Ordered By : Moreno Donnelly on 02-13-2024 Serum or plasma calcium measurement (mass/volume) 9.8 mg/dL 8.5-10.1 [facility] Carbon dioxide measurementOr dered By: Moreno Donnelly on 02-13-2024 Carbon dioxide measurement 25.0 mmol/L 21.0-32.0 [facility] Chloride measurementOrdered By: Moreno Donnelly on 02-13-2024 Chloride measurement 102 mmol/L 98-107 [facility] Creatinine [Mass/Vol]Ordered By: Moreno Donnelly on 02-13-2024 Serum or plasma creatinine measurement (mass/volume) 1.85 mg/dL High 0.55-1.02 [facility] Estimated glomerular filtrat ion rate (GFR) AmericanOrdered By: Moreno Donnelly on 02-13-2024 Estimated glomerular filtration rate (GFR) 35 mL/min Low >60 [facility] Glomerular filtration rate ( GFR) estimationOrdered By: Moreno Donnelly on 02-13-2024 Glomerular filtration rate (GFR) estimation 29 mL/min Low >60 [facility] Glucose measurementOrdered B y: Moreno Donnelly on 02-13-2024 Glucose measurement 102 mg/dL 74-106 [facility] Potassium measurementOrdered By: Moreno Donnelly on 02-13-2024 Potassium measurement 3.4 mmol/L Low 3.5-5.1 [facility] Serum anion gap measurementO rdered By: Moreno Donnelly on 02-13-2024 Serum anion gap measurement 12 5-15 [facility] Sodium levelOrdered By: Diomedes Donnelly on 02-13-2024 Sodium level 139 mmol/L 136-145 [facility] Urea nitrogen [Mass/Vol]Orde red By: Moreno Donnelly on 02-13-2024 Serum or plasma urea nitrogen measurement (mass/volume) 18 mg/dL 7-18 [facility] ALP [Catalytic activity/Vol] Ordered By: Jan Davenport on 02-09-2024 Serum or plasma alkaline phosphatase measurement 115 U/L 45-117 [facility] ALT [Catalytic activity/Vol] Ordered By: Jan tyshawn 02-09-2024 Serum or plasma alanine aminotransferase (ALT) measurement 16 U/L 13-56 [facility] Absolute neutrophil countOrd ered By: 02-09-2024 Absolute neutrophil count 4.7 X10^3/uL 2.0-7.7 [facility] Albumin [Mass/Vol]Ordered By : Jan Davenport 02-09-2024 Serum or plasma albumin measurement (mass/volume) 2.9 g/dL Low 3.2-5.0 [facility] Albumin to globulin ratioOrd ered By: [facility]02-09-2024 Albumin to globulin ratio 0.6 RATIO Low 0.9-2.4 [facility] Basophil percentageOrdered B y: on 02-09-2024 Basophil percentage 0.5 % 0-1 [facility] Bilirubin, totalOrdered By: Jan De La Cruz02-09-2024 Bilirubin, total 0.40 mg/dL 0.20-1.00 [facility] Blood urea nitrogen (BUN)/cr eatinine ratioOrdered By: Jan [facility] on 02-09-2024 Blood urea nitrogen (BUN)/creatinine ratio 12.6 RATIO 10-20 [facility] C-reactive protein measureme nt by high sensitivity methodOrdered By: 02-09-2024 C-reactive protein measurement by high sensitivity method 19.80 mg/L High 0.0-3.0 [facility] Calcium [Mass/Vol]Ordered By : Jan [facility]02-09-2024 Serum or plasma calcium measurement (mass/volume) 9.7 mg/dL 8.5-10.1 [facility] Carbon dioxide measurementOr dered By: Jan [facility]02-09-2024 Carbon dioxide measurement 26.0 mmol/L 21.0-32.0 [facility] Chloride measurementOrdered By: Jan [facility]02-09-2024 Chloride measurement 106 mmol/L 98-107 [facility] Cortisol [Mass/Vol]Ordered B y: Jan [facility]02-09-2024 Serum or plasma cortisol measurement (mass/volume) 8.80 ug/dL 3.44-22.45 [facility] Creatinine [Mass/Vol]Ordered By: [facility]02-09-2024 Serum or plasma creatinine measurement (mass/volume) 2.07 mg/dL High 0.55-1.02 [facility] ESR (Bld) [Velocity]Ordered By: Jan [facility]02-09-2024 Erythrocyte sedimentation rate 38 mm/hr High 0-30 [facility] Eosinophil percentageOrdered By: Jan [facility]02-09-2024 Eosinophil percentage 3.2 % 0-5 [facility] Erythrocyte distribution wid th (RBC) [Ratio]Ordered By: [facility] 02-09-2024 Erythrocyte distribution width ratio 14.5 % 11.6-14.6 [facility] Erythrocyte distribution width standard deviation 52.0 fl High 35.1-43.9 [facility] Estimated glomerular filtrat ion rate (GFR) AmericanOrdered By: Jan Davenport 02-09-2024 Estimated glomerular filtration rate (GFR) 30 mL/min Low >60 [facility] Glomerular filtration rate ( GFR) estimationOrdered By: [facility] Vikkiyamini on 02-09-2024 Glomerular filtration rate (GFR) estimation 25 mL/min Low >60 [facility] Glucose measurementOrdered B y: Jan Florez on 02-09-2024 Glucose measurement 94 mg/dL 74-106 [facility] Hematocrit Auto (Bld) [Volum e fraction]Ordered By: Jan Jonotyshawn 02-09-2024 Automated blood hematocrit (percentage) 37.1 % 37-47 [facility] Hemoglobin measurementOrdere d By: Jan Jonotyshawn on 02-09-2024 Hemoglobin measurement 10.9 g/dL Low 12.0-15.0 [facility] Immature granulocytes/100 WB C Auto (Bld)Ordered By: Jan Florezhoatyshawn 02-09-2024 Automated immature granulocyte percentage 0.500 % 0.0-0.9 [facility] Lymphocytes Auto (Unsp spec) [#/Vol]Ordered By: Jan Florezhaotyshawn 02-09-2024 Absolute lymphocyte count 1.88 X10^3/uL 0.83-4.51 [facility] Lymphocytes/100 WBC Auto (Un sp spec)Ordered By: Jan Florezhaotyshawn 02-09-2024 Automated lymphocyte count as percentage of total leukocytes 24.8 % 19-41 [facility] MCV (RBC) [Entitic vol]Order ed By: Jan Jonotyshawn 02-09-2024 MCV (mean corpuscular volume) determination 96.9 fL 81-99 [facility] Mean corpuscular hemoglobin (MCH) determinationOrdered By: Jan Jonotyshawn 02-09-2024 Mean corpuscular hemoglobin (MCH) determination 28.5 pg 27.0-32.0 [facility] Mean corpuscular hemoglobin concentration (MCHC) determinationOrdered By: [facility]2024 Mean corpuscular hemoglobin concentration (MCHC) determination 29.4 g/dL Low 32-36 [facility] Mean platelet volume determi nationOrdered By: [facility] Mean platelet volume determination 10.0 fl 6.2-12.0 [facility] Monocyte percentageOrdered B y: Jan Jonotyshawn 02-09-2024 Monocyte percentage 9.0 % 0-10 [facility] Neutrophil percentageOrdered By: Jan on 02-09-2024 Neutrophil percentage 62.0 % 47-70 [facility] No Panel InformationOrdered By: Jan on 02-09-2024 11 U/L Low 15-37 [facility] Nucleated red blood cell per centageOrdered By: Jan on 02-09-2024 Nucleated red blood cell percentage 0 % 0-5 [facility] Platelet countOrdered By: An gel orr on 02-09-2024 Platelet count 439 K/mm3 150-450 [facility] Potassium measurementOrdered By: Jan on 02-09-2024 Potassium measurement 4.4 mmol/L 3.5-5.1 [facility] RBC Auto (Bld) [#/Vol]Ordere d By: Jan on 02-09-2024 Automated blood erythrocyte count 3.83 M/mm3 Low 4.2-5.4 [facility] Serum anion gap measurementO rdered By: Jan on 02-09-2024 Serum anion gap measurement 7 5-15 [facility] Serum globulin measurementOr dered By: Jan on 02-09-2024 Serum globulin measurement 4.7 g/dL High 2.2-4.2 [facility] Sodium levelOrdered By: Apple perez on 02-09-2024 Sodium level 139 mmol/L 136-145 [facility] Total proteinOrdered By: Adonay brock on 02-09-2024 Total protein 7.6 g/dL 6.4-8.2 [facility] Urea nitrogen [Mass/Vol]Orde red By: Jan on 02-09-2024 Serum or plasma urea nitrogen measurement (mass/volume) 26 mg/dL High 7-18 [facility] White blood cell (WBC) count Ordered By: Jan on 02-09-2024 White blood cell (WBC) count 7.6 K/mm3 4.4-11.0 [facility] CNOVon 10-03-2023 CNOV Office Visit (OBGYWM ) -- LAURA STARK ([id number]) 1955 F Date Time Provider Department 10/03/23 1:45 PM LINDA RESTREPO OBHERBWAmy During your visit today, we recorded the following information about you: Blood pressure Weight 118/74 100.7 kg Linda Restrepo APRN.CNM 10/05/2023 10:56 AM Signed Laura Stark is a 68 year old female who presents for problem visit for vulvar bump HPI: Presents today for complaint of bump on labia that started about a week ago. Is not able to visualize but present. No pain but fells it there. No draining from what she can see. Denies any trauma or other concerns. Wears pad due to incontinence. 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 Comments: Sexual Activity: Not Currently; Male; hysterectomy Contraception: Surgical PAST MEDICAL HISTORY 12/06/2007: Abnormal mammogram, unspecified 10/14/2005: BILIARY DYSKINESIA 1995: DVT (deep venous thrombosis) ([facility]) Comment: Rt lower leg 10/28/2005: Embolism and thrombosis of unspecified site No date: PE (pulmonary embolism) 08/03/2012: Recurrent ventral incisional hernia No date: Sepsis (HCC) No date: Unspecified asthma(493.90) No date: Unspecified essential hypertension PAST SURGICAL HISTORY No date: APPENDECTOMY No date: DELIVERY ONLY Comment: , low cervical 01-09-13: COLONOSCOPY FLX DX W/COLLJ SPEC WHEN PFRMD 02-10-12: DEBRIDEMENT SUBCUTANEOUS TISSUE 20 SQ CM/< 03-24-12: ENTEROLSS FRING INTSTINAL ADHESION SPX 01-15-13: FILTER PLACEMENT (VENA CAVA) 05/26/11: FNA WITH IMAGING Comment: U/S FNA left thyroid nodule 01-31-12: IMPLANT MESH OPN HERNIA RPR/DEBRIDEMENT CLOSURE 03-24-12: INSJ NON-TUNNELED CENTRAL VENOUS CATH AGE 4 YR/> 12-5-13: LAPS RPR RECURRENT INCAL HRNA NCRC8/STRANGULATED 2004: PAST SURGICAL HISTORY OF Comment: right ankle surgery-fusion 2010: PAST SURGICAL HISTORY OF Comment: right shoulder partial replacement 01-31-12: RPR 1ST INCAL/VNT HERNIA INCARCERATED 1997: TOTAL ABDOMINAL HYSTERECT W/WO RMVL TUBE OVARY Comment: Hysterectomy, RONN 02-21-13: TRANSCATH RETRIEVAL,PERCUT Comment: FILTER REMOVAL FAMILY HISTORY Problem Relation Age of Onset Diabetes Mother Hypertension Mother Ischemic Heart Disease Mother Cancer Father skin Hypertension Father Diabetes Sister Hypertension Sister Diabetes Sister Hypertension Sister Blood Clots Sister Diabetes Sister Hypertension Sister Cancer Maternal Grandmother colon Hypertension Maternal Grandfather Ischemic Heart Disease Maternal Grandfather Diabetes Maternal Grandfather Cancer Paternal Grandfather leukemia Colon Cancer Maternal Uncle Colon Cancer Maternal Uncle Social History Tobacco Use Smoking status: Former Current packs/day: 0.00 Average packs/day: 1 pack/day for 20.0 years (20.0 ttl pk-yrs) Types: Cigarettes Start date: 10/29/1975 Quit date: 10/29/1995 Years since quittin.9 Smokeless tobacco: Never Vaping Use Vaping status: Never Used Substance Use Topics Alcohol use: No Drug use: No Current Outpatient Medications Medication Sig ondansetron orally disintegrating (ZOFRAN ODT) 4 mg disintegrating tablet atorvastatin (LIPITOR) 10 mg tablet famotidine (PEPCID) 40 mg tablet Take 40 mg by mouth. latanoprost (XALATAN) 0.005 % ophthalmic solution clobetasol (TEMOVATE) 0.05 % cream Apply to affected area 2x/day for 2 weeks, then 1x/day for a week. levothyroxine (SYNTHROID) 25 mcg tablet docosahexaenoic acid/epa (FISH OIL ORAL) Take by mouth. (Patient not taking: Reported on 10/29/2022) esomeprazole (NEXIUM) 40 mg capsule Take 40 mg by mouth DAILY (6 AM). L.acidoph-B.lactis-B.longu m (FLORAJEN3) 460 mg (7.5-6- 1.5 bill. cell) cap Take 1 capsule by mouth once daily. (Patient not taking: Reported on 10/29/2022) Cholecalciferol, Vitamin D3, 50 mcg (2,000 unit) cap Take by mouth. acetaminophen (TYLENOL) 500 mg tablet Take 1,000 mg by mouth twice daily. fluticasone-salmeterol HFA (ADVAIR) 230-21 mcg/actuation inhaler Inhale 2 Puffs as instructed twice daily. furosemide (LASIX) 20 mg tablet Take 20 mg by mouth twice daily. Pt is taking 30 mg daily potassium chloride ER (K-DUR, KLOR-CON) 20 mEq tablet Take 20 mEq by mouth twice daily. L. acidophilus/Bifid. animalis (DAILY PROBIOTIC ORAL) Take by mouth. diltiazem CD (CARDIZEM CD) 180 mg 24 hr capsule Take 2 capsules by mouth once daily. apixaban (ELIQUIS) 5 mg tab tab(s) Take 1 tablet by mouth twice daily. predniSONE (DELTASONE) 10 mg tablet Take 1 tablet by mouth once daily. 40MG PO QD FOR 3DAYS, THEN 30MG PO QD FOR 3DAYS, THEN 20MG PO QD FOR 3DAYS AND THEN 10MG PO QD FOR 3DAYS, THEN 5MG DAILY. flecainide (TAMBOCOR) 100 mg tablet Take 1 tablet by mouth every 12 hours. fluticasone-eleuterio (more content not included)... Normal [facility] Anaerobic cultureOrdered By: Nicky Cavanaugh on 05-10-2023 Bacteria identified Anaer cx Nom (Unsp spec) No anaerobic bacteria isolated. [facility] Bacteria identified Cx Nom ( Wound)Ordered By: Nicky Cavanaugh on 05-10-2023 Wound Culture Meth. resistant Stap h. aureus [facility] Gram stain for investigation of transfusion reactionOrdered By: Nicky Cavanaugh on 05-10-2023 Microscopic observation Gram stain Nom (Unsp spec) [facility] Bacteria identified Respirat ory culture Nom (Unsp spec)Ordered By: Marie Langley on 03-30-2023 Respiratory Culture Staphylococcus aureus [facility] Respiratory Culture Staphylococcus aureus [facility] Gram stain for investigation of transfusion reactionOrdered By: Marie Langley on 03-30-2023 Microscopic observation Gram stain Nom (Unsp spec) [facility] Microscopic observation Gram stain Nom (Unsp spec) [facility] Basophil percentageOrdered B y: Ervin Donnelly on 03-09-2023 Chloride [Moles/Vol] 109 mmol/L 98-107 [facility] Glucose [Mass/Vol] 115 mg/dL 74-106 [facility] Comment on above: Fasting Glucose resu lt from 100 to 125 mg/dL suggests IMPAIRED HOMEOSTASIS per A.D.A. criteria. Potassium [Moles/Vol] 3.8 mmol/L 3.5-5.1 [facility] Sodium [Moles/Vol] 140 mmol/L 136-145 [facility] Laboratory - Chemistry and C hemistry - challengeOrdered By: Ervin Donnelly on 03-09-2023 CO2 [Moles/Vol] 25.0 mmol/L 21.0-32.0 [facility] Natriuretic peptide B (Bld) [Mass/Vol] 56.6 pg/mL 0-100 [facility] Urea nitrogen/Creatinine [Mass ratio] 17.4 mg/mg 10-20 [facility] No Panel InformationOrdered By: Ervin Donnelly on 03-09-2023 Estimated GFR (MDRD) Amer 45 mL/min >60 [facility] Comment on above: GFR Calc Estimated GFR (MDRD) Non-Af Amer 37 mL/min >60 [facility] Comment on above: Non- GFR Calc Vitamin D 25-Hydroxy 55.7 ng/mL [facility] Comment on above: Vitamin D 25(OH) Sta tus Range Deficiency <20 ng/mL (50nmol/L) Insufficiency 20 - 30 ng/mL (50 - 75 nmol/L) Sufficiency 30 - 100 ng/mL (75 - 250 nmol/L) Toxicity >100 ng/mL (>250 nmol/L) Serum or plasma calcium nga urement (mass/volume)Ordered By: Ervin Donnelly on 03-09-2023 Calcium [Mass/Vol] 9.4 mg/dL 8.5-10.1 [facility] Serum or plasma creatinine m easurement (mass/volume)Ordered By: Ervin Donnelly on 03-09-2023 Creatinine [Mass/Vol] 1.49 mg/dL 0.55-1.02 [facility] Comment on above: The validity of the calculated GFR & GFRAA in patients over 70 years has not been determined. Clinical correlation is essential. Serum or plasma thyroid stim ulating hormone (TSH) measurement (units/volume)Ordered By: Ervin Donnelly on 03-09-2023 TSH Qn 2.09 uIU/mL 0.358-3.74 [facility] Serum or plasma urea nitroge n measurement (mass/volume)Ordered By: Ervin Donnelly on 03-09-2023 Urea nitrogen [Mass/Vol] 26 mg/dL 7-18 [facility] Thin prep Papanicolaou smear with manual screeningOrdered By: Ervin Donnelly on 03-09-2023 Thin prep Papanicolaou smear with manual screening 6 5-15 [facility] Microscopic observation Gram stain Nom (Vag fld)on 12-07-2022 Bacterial Vaginosis BACTERIAL VAGINOSIS RESULT: Stain results consistent with normal vaginal vern. [facility] Bacterial Vaginosis No clue cells present [facility] Bacterial Vaginosis No Yeast observed [facility] Bacterial Vaginosis Few Polymorphonuclea r leukocytes [facility] Basophil percentageOrdered B y: Adry Pires on 11-16-2022 Bilirubin [Mass/Vol] 0.40 mg/dL 0.20-1.00 [facility] Comment on above: For patients on eltr ombopag therapy, use of Dimension [place] TBIL is not recommended. Cholesterol [Mass/Vol] 150 mg/dL <200 [facility] Comment on above: <200 mg/dL Desirable 200-240 mg/dL Borderline >240 mg/dL High Risk Protein [Mass/Vol] 7.8 g/dL 6.4-8.2 [facility] Triglyceride [Mass/Vol] 182 mg/dL <199 [facility] Comment on above: The drugs N-Acetylcy steine and Metamizole may falsely depress this assay.Serum Triglycerides Reference Interval Normal <150 mg/dL Borderline high 150 - 199 mg/dL High 200 - 499 mg/dL Very High > or = 500 mg/dL Direct bilirubinOrdered By: Adry Pires on 11-16-2022 Bilirubin.direct [Mass/Vol] 0.12 mg/dL 0.00-0.30 [facility] Laboratory - Chemistry and C hemistry - challengeOrdered By: Adry Pires on 11-16-2022 ALP [Catalytic activity/Vol] 143 U/L 45-117 [facility] ALT [Catalytic activity/Vol] 18 U/L 13-56 [facility] Globulin (S) [Mass/Vol] 4.6 g/dL 2.2-4.2 [facility] Serum or plasma albumin nga urement (mass/volume)Ordered By: Adry Pires on 11-16-2022 Albumin [Mass/Vol] 3.2 g/dL 3.2-5.0 [facility] Serum or plasma cholesterol in HDL measurement (mass/volume)Ordered By: Adry Pires on 11-16-2022 Cholesterol in HDL [Mass/Vol] 45 mg/dL >40 [facility] Comment on above: The drugs N-Acetylcy steine and Metamizole may falsely depress this assay. Reference Range HDL <40 mg/dL Low HDL Cholesterol HDL >or= 60 mg/dL High HDL Cholesterol Serum or plasma cholesterol in VLDL measurement (mass/volume)Ordered By: Adry Pires on 11-16-2022 Cholesterol in VLDL [Mass/Vol] 36 mg/dL 5-40 [facility] Serum or plasma low density lipoprotein (LDL) cholesterol measurement (mass/volume)Ordered By: Adry Pires on 11-16-2022 Cholesterol in LDL [Mass/Vol] 69 mg/dL 0-130 [facility] Thin prep Papanicolaou smear with manual screeningOrdered By: Adry Pires on 11-16-2022 Thin prep Papanicolaou smear with manual screening 11 U/L 15-37 [facility] Basophil percentageOrdered B y: Ervin Donnelly on 10-21-2022 Chloride [Moles/Vol] 107 mmol/L 98-107 [facility] Glucose [Mass/Vol] 130 mg/dL 74-106 [facility] Comment on above: Fasting Glucose resu lt greater than or equal to 126 mg/dL suggests DIABETES MELLITUS per A.D.A. criteria. Potassium [Moles/Vol] 4.0 mmol/L 3.5-5.1 [facility] Sodium [Moles/Vol] 139 mmol/L 136-145 [facility] Laboratory - Chemistry and C hemistry - challengeOrdered By: Ervin Donnelly on 10-21-2022 CO2 [Moles/Vol] 24.0 mmol/L 21.0-32.0 [facility] Urea nitrogen/Creatinine [Mass ratio] 20.8 mg/mg 10- [facility] No Panel InformationOrdered By: Ervin Donnelly on 10-21-2022 Estimated GFR (MDRD) Amer 45 mL/min >60 [facility] Comment on above: GFR Calc Estimated GFR (MDRD) Non-Af Amer 37 mL/min >60 [facility] Comment on above: Non- GFR Calc Serum or plasma calcium nga urement (mass/volume)Ordered By: Ervin Donnelly on 10-21-2022 Calcium [Mass/Vol] 9.3 mg/dL 8.5-10.1 [facility] Serum or plasma creatinine m easurement (mass/volume)Ordered By: Ervin Donnelly on 10-21-2022 Creatinine [Mass/Vol] 1.49 mg/dL 0.55-1.02 [facility] Comment on above: The validity of the calculated GFR & GFRAA in patients over 70 years has not been determined. Clinical correlation is essential. Serum or plasma urea nitroge n measurement (mass/volume)Ordered By: Ervin Donnelly on 10-21-2022 Urea nitrogen [Mass/Vol] 31 mg/dL 7-18 [facility] Thin prep Papanicolaou smear with manual screeningOrdered By: Ervin Donnelly on 10-21-2022 Thin prep Papanicolaou smear with manual screening 8 5-15 [facility] Bacteria identified Cx Nom ( Throat)Ordered By: Ervin Donnelly on 09-24-2022 Throat culture Klebsiella pneumonia e sp pneum [facility] CNOVon 09-16-2022 CNOV Office Visit (AGHWW1 ) -- LAURA STARK ([id number]) 1955 F Date Time Provider Department 09/16/22 10:30 AM [facility] During your visit today, we recorded the following information about you: Respiration Weight Height 16/minute 107.5 kg 1.549 m Clementina Hare DPM 09/16/2022 11:14 AM Addendum Recommend patellar tendon weight-bearing brace (PTWB) -[place] ([place]vin) Make appointment by telephone. Handout dispensed. Wear walking boot in mean time until brace is completed Follow up when brace is made. Keyon Meade, ROBERT 10/03/2022 12:26 PM Addendum Chief Complaint: Chronic L ankle pain, referral from Dr. Cavanaugh HPI: This 67 year old female with PMH indicated below presents with chief complaint of of chronic LEFT ankle pain. Patient states she was referred here by Dr. Cavanaugh for further evaluation/possible surgical intervention. 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 Patient has been ambulating in a CAM boot the last several weeks but states the pain is worsening to the point it is becoming more difficult to walk. 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 Patient states she has asthma and took long courses of steroids when she was younger. Has also been hospitalized multiple times requiring high doses of steroids for treatment. Patient has limited motion of the L ankle and ambulates with a walker at baseline. 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 Cholecalciferol, Vitamin D3, 50 mcg (2,000 unit) cap Take by mouth. acetaminophen (TYLENOL) 500 mg tablet Take 1,000 mg by mouth twice daily. fluticasone-salmeterol HFA (ADVAIR) 230-21 mcg/actuation inhaler Inhale 2 Puffs as instructed twice daily. furosemide (LASIX) 20 mg tablet Take 20 mg by mouth twice daily. Pt is taking 30 mg daily L. acidophilus/Bifid. animalis (DAILY PROBIOTIC ORAL) Take by mouth. diltiazem CD (CARDIZEM CD) 180 mg 24 hr capsule Take 2 capsules by mouth once daily. apixaban (ELIQUIS) 5 mg tab tab(s) Take 1 tablet by mouth twice daily. flecainide (TAMBOCOR) 100 mg tablet Take 1 tablet by mouth every 12 hours. fluticasone-salmeterol (ADVAIR) 500-50 mcg/dose dsdv Inhale 1 Puff as instructed twice daily. ipratropium-albuterol (DUONEB) 0.5 mg-3 mg(2.5 mg base)/3 mL nebu Inhale 3 mL as instructed every 4 hours as needed. albuterol (PROVENTIL) 2.5 mg /3 mL (0.083 %) nebulizer solution Use 2.5 mg via nebulizer every 4 hours as needed. montelukast (SINGULAIR) 10 mg tablet Take 10 mg by mouth daily at bedtime. albuterol HFA (PROVENTIL HFA, VENTOLIN HFA) 90 mcg/actuation inhaler Inhale 2 Puffs as instructed every 4 hours as needed. triamcinolone (KENALOG) 0.025 % cream Apply to affected area twice daily. fluconazole (DIFLUCAN) 150 mg tablet Take one tablet by mouth once. Then repeat every 3 days for 3 doses. docosahexaenoic acid/epa (FISH OIL ORAL) Take by mouth. phenazopyridine (PYRIDIUM) 200 mg tablet Take 1 tablet by mouth three times daily as needed. L.acidoph-B.lactis-B.longu m (FLORAJEN3) 460 mg (7.5-6- 1.5 bill. cell) cap Take 1 capsule by mouth once daily. lisinopril (ZESTRIL, PRINIVIL) 5 mg tablet Take 5 mg by mouth once daily. potassium chloride ER (K-DUR, KLOR-CON) 20 mEq tablet Take 20 mEq by mouth twice daily. metHIMazole (TAPAZOLE) 5 mg tablet Take 1 tablet by mouth once daily. insulin lispro (HUMALOG) 100 unit/mL injection Inject 5 Units subcutaneously w MEALS. insulin lispro (HUMALOG) 100 unit/mL injection Inject 1-10 Units subcutaneously w MEALS. ADMINISTER CORRECTIONAL INSULIN REGARDLESS OF MEAL OR NUTRITION INTAKE Scale 2 If Blood Glucose (mg/dL) is: Less than 110 Give 0 units 111-150 Give 0 units 151-200 Give 2 units 201-250 Give 4 units 251-300 Give 6 units 301-350 Give 8 units 351-400 Give 10 units Greater than 400 Give 10 units and Notify Provider . insulin NPH human (NOVOLIN N, HUMULIN N) injection Inject 10 Units subcutaneously daily at bedtime. insulin NPH human (NOVOLIN N, HUMULIN N) injection Inject 14 Units subcutaneously daily with breakfast. HYDROcodone-acetaminophen (NORCO) 5-325 mg per tablet Take 1-2 tablets by mouth every 6 hours as needed. clotrimazole (LOTRIMIN, CLOTRIM) 1 % cream Apply 1 application to affected area twice daily. predniSONE (DELT (more content not included)... Normal [facility] Basophil percentageOrdered B y: Ervin Donnelly on 09-07-2022 Chloride [Moles/Vol] 111 mmol/L 98-107 [facility] Glucose [Mass/Vol] 118 mg/dL 74-106 [facility] Comment on above: Fasting Glucose resu lt from 100 to 125 mg/dL suggests IMPAIRED HOMEOSTASIS per A.D.A. criteria. Potassium [Moles/Vol] 3.9 mmol/L 3.5-5.1 [facility] Sodium [Moles/Vol] 143 mmol/L 136-145 [facility] WBC (Bld) [#/Vol] 6.9 10*3/uL 4.4-11.0 [facility] Blood erythrocytes count (nu mber/volume)Ordered By: Ervin Donnelly on 09-07-2022 RBC (Bld) [#/Vol] 3.73 10*6/uL 4.2-5.4 [facility] Blood hemoglobin measurement (mass/volume)Ordered By: Ervin Donnelly on 09-07-2022 Hemoglobin (Bld) [Mass/Vol] 11.2 g/dL 12.0-15.0 [facility] Blood platelet mean volumeOr dered By: Ervin Donnelly on 09-07-2022 Platelet mean volume (Bld) [Entitic vol] 10.3 fL 6.2-12.0 [facility] Determination of erythrocyte mean corpuscular volume (MCV)Ordered By: Ervin Donnelly on 09-07-2022 MCV (RBC) [Entitic vol] 97.6 fL 81-99 [facility] Hematocrit Auto (Bld) [Volum e fraction]Ordered By: Ervin Donnelly on 09-07-2022 Hematocrit (Bld) [Volume fraction] 36.4 % 37-47 [facility] Laboratory - Chemistry and C hemistry - challengeOrdered By: Ervin Donnelly on 09-07-2022 CO2 [Moles/Vol] 23.0 mmol/L 21.0-32.0 [facility] Urea nitrogen/Creatinine [Mass ratio] 18.0 mg/mg 10-20 [facility] - Hematology and Cell countsOrdered By: Ervin Donnelly on 09-07-2022 Erythrocyte distribution width (RBC) [Entitic vol] 47.0 fL 35.1-43.9 [facility] Erythrocyte distribution width (RBC) [Ratio] 13.2 % 11.6-14.6 [facility] MCH (RBC) [Entitic mass] 30.0 pg 27.0-32.0 [facility] MCHC Auto (RBC) [Mass/Vol]Or dered By: Ervin Donnelly on 09-07-2022 MCHC (RBC) [Mass/Vol] 30.8 g/dL 32-36 [facility] No Panel InformationOrdered By: Ervin Donnelly on 09-07-2022 Estimated GFR (MDRD) Amer 41 mL/min >60 [facility] Comment on above: GFR Calc Estimated GFR (MDRD) Non-Af Amer 34 mL/min >60 [facility] Comment on above: Non- GFR Calc Platelets bldOrdered By: Stephanie Donnelly on 09-07-2022 Platelets (Bld) [#/Vol] 379 10*3/uL 150-450 [facility] Serum or plasma calcium nga urement (mass/volume)Ordered By: Ervin Donnelly on 09-07-2022 Calcium [Mass/Vol] 9.1 mg/dL 8.5-10.1 [facility] Serum or plasma creatinine m easurement (mass/volume)Ordered By: Ervin Donnelly on 09-07-2022 Creatinine [Mass/Vol] 1.61 mg/dL 0.55-1.02 [facility] Comment on above: The validity of the calculated GFR & GFRAA in patients over 70 years has not been determined. Clinical correlation is essential. Serum or plasma urea nitroge n measurement (mass/volume)Ordered By: Ervin Donnelly on 09-07-2022 Urea nitrogen [Mass/Vol] 29 mg/dL 7-18 [facility] Thin prep Papanicolaou smear with manual screeningOrdered By: Ervin Donnelly on 09-07-2022 Thin prep Papanicolaou smear with manual screening 9 5-15 [facility] Absolute lymphocyte countOrd ered By: Dr. Wilson on 05-08-2022 Lymphocytes Auto (Unsp spec) [#/Vol] 0.79 10*3/uL 0.83-4.51 [facility] Basophil percentageOrdered B y: Dr. Wilson on 05-08-2022 Basophils/100 WBC (Bld) 0.3 % 0-1 [facility] Chloride [Moles/Vol] 108 mmol/L 98-107 [facility] Eosinophils/100 WBC (Bld) 0.1 % 0-5 [facility] Glucose [Mass/Vol] 198 mg/dL 74-106 [facility] Comment on above: Fasting Glucose resu lt greater than or equal to 126 mg/dL suggests DIABETES MELLITUS per A.D.A. criteria. Neutrophils (Bld) [#/Vol] 6.6 10*3/uL 2.0-7.7 [facility] Neutrophils/100 WBC (Bld) 82.9 % 47-70 [facility] Potassium [Moles/Vol] 3.8 mmol/L 3.5-5.1 [facility] Sodium [Moles/Vol] 140 mmol/L 136-145 [facility] WBC (Bld) [#/Vol] 8.0 10*3/uL 4.4-11.0 [facility] Blood erythrocytes count (nu mber/volume)Ordered By: Dr. Wilson on 05-08-2022 RBC (Bld) [#/Vol] 3.97 10*6/uL 4.2-5.4 [facility] Blood hemoglobin measurement (mass/volume)Ordered By: Dr. Wilson on 05-08-2022 Hemoglobin (Bld) [Mass/Vol] 11.9 g/dL 12.0-15.0 [facility] Blood lymphocytes/100 leukoc ytesOrdered By: Dr. Wilson on 05-08-2022 Lymphocytes/100 WBC (Bld) 9.9 % 19-41 [facility] Blood monocytes/100 leukocyt esOrdered By: Dr. Wilson on 05-08-2022 Monocytes/100 WBC (Bld) 6.2 % 0-10 [facility] Blood platelet mean volumeOr dered By: Dr. Wilson on 05-08-2022 Platelet mean volume (Bld) [Entitic vol] 9.9 fL 6.2-12.0 [facility] Determination of erythrocyte mean corpuscular volume (MCV)Ordered By: Dr. Wilson on 05-08-2022 MCV (RBC) [Entitic vol] 96.7 fL 81-99 [facility] Hematocrit Auto (Bld) [Volum e fraction]Ordered By: Dr. Wilson on 05-08-2022 Hematocrit (Bld) [Volume fraction] 38.4 % 37-47 [facility] Influenza virus A and B and SARS-CoV-2 (COVID-19) Ag panel - Upper respiratory specimOrdered By: Dr. Wilson on 05-08-2022 SARS-CoV-2 & FLU Antigen (Rapid) Influenzae B [facility] - Chemistry and C hemistry - challengeOrdered By: Dr. Wilson on 05-08-2022 CO2 [Moles/Vol] 24.0 mmol/L 21.0-32.0 [facility] Urea nitrogen/Creatinine [Mass ratio] 20.3 mg/mg 10-20 [facility] - Hematology and Cell countsOrdered By: Dr. Wilson on 05-08-2022 Erythrocyte distribution width (RBC) [Entitic vol] 49.8 fL 35.1-43.9 [facility] Erythrocyte distribution width (RBC) [Ratio] 14.1 % 11.6-14.6 [facility] Immature granulocytes/100 WBC (Bld) 0.600 % 0.0-0.9 [facility] Comment on above: IG% - Immature Granu locytes (promyelocytes, myelocytes and metamyelocytes) > 1% indicates that a LEFT SHIFT is Present. MCH (RBC) [Entitic mass] 30.0 pg 27.0-32.0 [facility] Nucleated RBC/100 WBC (Bld) [Ratio] 0 % 0-5 [facility] MCHC Auto (RBC) [Mass/Vol]Or dered By: Dr. Wilson on 05-08-2022 MCHC (RBC) [Mass/Vol] 31.0 g/dL 32-36 [facility] No Panel InformationOrdered By: Dr. Wilson on 05-08-2022 Estimated Creatinine Clearance Calc 30.55 ml/min [facility] Estimated GFR (MDRD) Amer 51 mL/min >60 [facility] Comment on above: GFR Calc Estimated GFR (MDRD) Non-Af Amer 42 mL/min >60 [facility] Comment on above: Non- GFR Calc Troponin I High Sensitivity 7 pg/mL 3.0-54.0 [facility] Comment on above: Please Note: [place] t Units and Gender Specific Reference Ranges. For more information see Policy Stat Procedure [place] High Sensitivity Troponin (TNIH) and attachments. Platelets bldOrdered By: Dr. Wilson on 05-08-2022 Platelets (Bld) [#/Vol] 325 10*3/uL 150-450 [facility] Serum or plasma calcium nga urement (mass/volume)Ordered By: Dr. Wilson on 05-08-2022 Calcium [Mass/Vol] 9.2 mg/dL 8.5-10.1 [facility] Serum or plasma creatinine m easurement (mass/volume)Ordered By: Dr. Wilson on 05-08-2022 Creatinine [Mass/Vol] 1.33 mg/dL 0.55-1.02 [facility] Comment on above: The validity of the calculated GFR & GFRAA in patients over 70 years has not been determined. Clinical correlation is essential. Serum or plasma urea nitroge n measurement (mass/volume)Ordered By: Dr. Wilson on 05-08-2022 Urea nitrogen [Mass/Vol] 27 mg/dL 7-18 [facility] Thin prep Papanicolaou smear with manual screeningOrdered By: Dr. Wilson on 05-08-2022 Thin prep Papanicolaou smear with manual screening 8 5-15 [facility] Basophil percentageOrdered B y: Dr. Donnelly on 02-10-2022 Bilirubin [Mass/Vol] 0.30 mg/dL 0.20-1.00 [facility] Comment on above: For patients on eltr ombopag therapy, use of Dimension [place] TBIL is not recommended. Chloride [Moles/Vol] 106 mmol/L 98-107 [facility] Cholesterol [Mass/Vol] 177 mg/dL <200 [facility] Comment on above: <200 mg/dL Desirable 200-240 mg/dL Borderline >240 mg/dL High Risk Glucose [Mass/Vol] 130 mg/dL 74-106 [facility] Comment on above: Fasting Glucose resu lt greater than or equal to 126 mg/dL suggests DIABETES MELLITUS per A.D.A. criteria. Potassium [Moles/Vol] 4.0 mmol/L 3.5-5.1 [facility] Protein [Mass/Vol] 7.5 g/dL 6.4-8.2 [facility] Sodium [Moles/Vol] 141 mmol/L 136-145 [facility] Triglyceride [Mass/Vol] 153 mg/dL <199 [facility] Comment on above: The drugs N-Acetylcy steine and Metamizole may falsely depress this assay.Serum Triglycerides Reference Interval Normal <150 mg/dL Borderline high 150 - 199 mg/dL High 200 - 499 mg/dL Very High > or = 500 mg/dL WBC (Bld) [#/Vol] 7.3 10*3/uL 4.4-11.0 [facility] Blood erythrocytes count (nu mber/volume)Ordered By: Dr. Donnelly on 02-10-2022 RBC (Bld) [#/Vol] 3.96 10*6/uL 4.2-5.4 [facility] Blood hemoglobin measurement (mass/volume)Ordered By: Dr. Donnelly on 02-10-2022 Hemoglobin (Bld) [Mass/Vol] 11.6 g/dL 12.0-15.0 [facility] Blood platelet mean volumeOr dered By: Dr. Donnelly on 02-10-2022 Platelet mean volume (Bld) [Entitic vol] 10.1 fL 6.2-12.0 [facility] Determination of erythrocyte mean corpuscular volume (MCV)Ordered By: Dr. Donnelly on 02-10-2022 MCV (RBC) [Entitic vol] 94.9 fL 81-99 [facility] Hematocrit Auto (Bld) [Volum e fraction]Ordered By: Dr. Donnelly on 02-10-2022 Hematocrit (Bld) [Volume fraction] 37.6 % 37-47 [facility] Iron measurement (mass/mass) Ordered By: Dr. Donnelly on 02-10-2022 Iron (Unsp spec) [Mass/Mass] 35 ug/dL 50-170 [facility] Laboratory - Chemistry and C hemistry - challengeOrdered By: Dr. Donnelly on 02-10-2022 ALP [Catalytic activity/Vol] 165 U/L 45-117 [facility] ALT [Catalytic activity/Vol] 19 U/L 13-56 [facility] CO2 [Moles/Vol] 26.0 mmol/L 21.0-32.0 [facility] Globulin (S) [Mass/Vol] 4.1 g/dL 2.2-4.2 [facility] Urea nitrogen/Creatinine [Mass ratio] 19.4 mg/mg 10-20 [facility] Laboratory - Hematology and Cell countsOrdered By: Dr. Donnelly on 02-10-2022 Erythrocyte distribution width (RBC) [Entitic vol] 48.8 fL 35.1-43.9 [facility] Erythrocyte distribution width (RBC) [Ratio] 14.1 % 11.6-14.6 [facility] MCH (RBC) [Entitic mass] 29.3 pg 27.0-32.0 [facility] MCHC Auto (RBC) [Mass/Vol]Or dered By: Dr. Donnelly on 02-10-2022 MCHC (RBC) [Mass/Vol] 30.9 g/dL 32-36 [facility] No Panel InformationOrdered By: Dr. Donnelly on 02-10-2022 Estimated GFR (MDRD) Amer 49 mL/min >60 [facility] Comment on above: GFR Calc Estimated GFR (MDRD) Non-Af Amer 40 mL/min >60 [facility] Comment on above: Non- GFR Calc Thyroid Stimulating Hormone (TSH) 2.30 uIU/mL 0.358-3.74 [facility] Vitamin D 25-Hydroxy 54.5 ng/mL [facility] Comment on above: Vitamin D 25(OH) Sta tus Range Deficiency <20 ng/mL (50nmol/L) Insufficiency 20 - 30 ng/mL (50 - 75 nmol/L) Sufficiency 30 - 100 ng/mL (75 - 250 nmol/L) Toxicity >100 ng/mL (>250 nmol/L) Platelets bldOrdered By: Dr. Donnelly on 02-10-2022 Platelets (Bld) [#/Vol] 335 10*3/uL 150-450 [facility] Serum or plasma albumin nga urement (mass/volume)Ordered By: Dr. Donnelly on 02-10-2022 Albumin [Mass/Vol] 3.4 g/dL 3.2-5.0 [facility] Serum or plasma albumin/glob ulin mass ratioOrdered By: Dr. Donnelly on 02-10-2022 Albumin/Globulin [Mass ratio] 0.8 {ratio} 0.9-2.4 [facility] Serum or plasma calcium nga urement (mass/volume)Ordered By: Dr. Donnelly on 02-10-2022 Calcium [Mass/Vol] 9.2 mg/dL 8.5-10.1 [facility] Serum or plasma cholesterol in HDL measurement (mass/volume)Ordered By: Dr. Donnelly on 02-10-2022 Cholesterol in HDL [Mass/Vol] 51 mg/dL >40 [facility] Comment on above: The drugs N-Acetylcy steine and Metamizole may falsely depress this assay. Reference Range HDL <40 mg/dL Low HDL Cholesterol HDL >or= 60 mg/dL High HDL Cholesterol Serum or plasma cholesterol in VLDL measurement (mass/volume)Ordered By: Dr. Donnelly on 02-10-2022 Cholesterol in VLDL [Mass/Vol] 31 mg/dL 5-40 [facility] Serum or plasma creatinine m easurement (mass/volume)Ordered By: Dr. Donnelly on 02-10-2022 Creatinine [Mass/Vol] 1.39 mg/dL 0.55-1.02 [facility] Comment on above: The validity of the calculated GFR & GFRAA in patients over 70 years has not been determined. Clinical correlation is essential. Serum or plasma ferritin molly surement (mass/volume)Ordered By: Dr. Donnelly on 02-10-2022 Ferritin [Mass/Vol] 40 ng/mL 8-252 [facility] Serum or plasma low density lipoprotein (LDL) cholesterol measurement (mass/volume)Ordered By: Dr. Donnelly on 02-10-2022 Cholesterol in LDL [Mass/Vol] 95 mg/dL 0-130 [facility] Serum or plasma urea nitroge n measurement (mass/volume)Ordered By: Dr. Donnelly on 02-10-2022 Urea nitrogen [Mass/Vol] 27 mg/dL 7-18 [facility] Thin prep Papanicolaou smear with manual screeningOrdered By: Dr. Donnelly on 02-10-2022 Thin prep Papanicolaou smear with manual screening 11 U/L 15-37 [facility] Thin prep Papanicolaou smear with manual screening 9 5-15 [facility] SHANKAR SCREENINGon 01-27-2022 [facility] Absolute lymphocyte counton 09-12-2021 Lymphocytes Auto (Unsp spec) [#/Vol] 1.73 10*3/uL 0.83-4.51 [facility] Work Phone: Basophil percentageon 2021 Basophil percentage 0-5 SEEN /hpf 0-5 [facility] Work Phone: Basophils/100 WBC (Bld) 0.4 % 0-1 [facility] Work Phone: Bilirubin [Mass/Vol] 0.40 mg/dL 0.20-1.00 [facility] Work Phone: Comment on above: For patients on eltr ombopag therapy, use of Dimension [place] TBIL is not recommended. Chloride [Moles/Vol] 110 mmol/L 98-107 [facility] Work Phone: Eosinophils/100 WBC (Bld) 1.8 % 0-5 [facility] Work Phone: [phone] Glucose [Mass/Vol] 142 mg/dL 74-106 [facility] Work Phone: Comment on above: Fasting Glucose resu lt greater than or equal to 126 mg/dL suggests DIABETES MELLITUS per A.D.A. criteria. Neutrophils (Bld) [#/Vol] 6.6 10*3/uL 2.0-7.7 [facility] Work Phone: [phone] Neutrophils/100 WBC (Bld) 71.2 % 47-70 [facility] Work Phone: Potassium [Moles/Vol] 4.2 mmol/L 3.5-5.1 [facility] Work Phone: Protein [Mass/Vol] 7.9 g/dL 6.4-8.2 [facility] Work Phone: Sodium [Moles/Vol] 141 mmol/L 136-145 [facility] Work Phone: WBC (Bld) [#/Vol] 9.3 10*3/uL 4.4-11.0 [facility] Work Phone: Bilirubin Test strip Ql (U)o n 09-12-2021 Bilirubin Ql (U) Negative Negative [facility] Work Phone: Blood erythrocytes count (nu mber/volume)on 09-12-2021 RBC (Bld) [#/Vol] 3.90 10*6/uL 4.2-5.4 [facility] Work Phone: Blood hemoglobin measurement (mass/volume)on 09-12-2021 Hemoglobin (Bld) [Mass/Vol] 10.9 g/dL 12.0-15.0 [facility] Work Phone: [phone] Blood lymphocytes/100 leukoc yteson 09-12-2021 Lymphocytes/100 WBC (Bld) 18.5 % 19-41 [facility] Work Phone: Blood monocytes/100 leukocyt eson 09-12-2021 Monocytes/100 WBC (Bld) 7.6 % 0-10 [facility] Work Phone: Blood platelet mean volumeon 09-12-2021 Platelet mean volume (Bld) [Entitic vol] 10.6 fL 6.2-12.0 [facility] Work Phone: Determination of erythrocyte mean corpuscular volume (MCV)on 09-12-2021 MCV (RBC) [Entitic vol] 94.6 fL 81-99 [facility] Work Phone: Hematocrit Auto (Bld) [Volum e fraction]on 09-12-2021 Hematocrit (Bld) [Volume fraction] 36.9 % 37-47 [facility] Work Phone: INR in Blood by Coagulation assayon 09-12-2021 INR Coag (Bld) [Relative time] 1.4 {INR} [facility] Work Phone: Ketones Test strip Ql (U)on 09-12-2021 Ketones Ql (U) Negative Negative [facility] Work Phone: Laboratory - Chemistry and C hemistry - challengeon 09-12-2021 ALP [Catalytic activity/Vol] 149 U/L 45-117 [facility] Work Phone: ALT [Catalytic activity/Vol] 17 U/L 13-56 [facility] Work Phone: CO2 [Moles/Vol] 28.0 mmol/L 21.0-32.0 [facility] Work Phone: Globulin (S) [Mass/Vol] 4.9 g/dL 2.2-4.2 [facility] Work Phone: Urea nitrogen/Creatinine [Mass ratio] 13.3 mg/mg 10-20 [facility] Work Phone: Laboratory - Coagulationon 0 09-12-2021 aPTT Coag (Bld) [Time] 24.9 s 24.1-36.2 [facility] Work Phone: PT Coag (PPP) [Time] 16.6 s 11.7-14.9 [facility] Work Phone: Laboratory - Hematology and Cell countson 09-12-2021 Erythrocyte distribution width (RBC) [Entitic vol] 49.8 fL 35.1-43.9 [facility] Work Phone: Erythrocyte distribution width (RBC) [Ratio] 14.6 % 11.6-14.6 [facility] Work Phone: Immature granulocytes/100 WBC (Bld) 0.500 % 0.0-0.9 [facility] Work Phone: [phone] Comment on above: IG% - Immature Granu locytes (promyelocytes, myelocytes and metamyelocytes) > 1% indicates that a LEFT SHIFT is Present. MCH (RBC) [Entitic mass] 27.9 pg 27.0-32.0 [facility] Work Phone: [phone] Nucleated RBC/100 WBC (Bld) [Ratio] 0 % 0-5 [facility] Work Phone: MCHC Auto (RBC) [Mass/Vol]on 09-12-2021 MCHC (RBC) [Mass/Vol] 29.5 g/dL 32-36 [facility] Work Phone: Mucus LM Ql (Urine sed)on Mucus Ql (Urine sed) 0 SEEN /hpf [facility] Work Phone: Nitrite Test strip Ql (U)on 09-12-2021 Nitrite Ql (U) Negative Negative [facility] Work Phone: No Panel Informationon 09-12 Estimated Creatinine Clearance Calc 30.51 ml/min [facility] Work Phone: Estimated GFR (MDRD) Amer 50 mL/min >60 [facility] Work Phone: Comment on above: GFR Calc Estimated GFR (MDRD) Non-Af Amer 42 mL/min >60 [facility] Work Phone: [phone] Comment on above: Non- GFR Calc Platelets bldon 09-12-2021 Platelets (Bld) [#/Vol] 445 10*3/uL 150-450 [facility] Work Phone: Protein Test strip Ql (U)on 09-12-2021 Protein Ql (U) Negative Negative [facility] Work Phone: Serum or plasma albumin nga urement (mass/volume)on 09-12-2021 Albumin [Mass/Vol] 3.0 g/dL 3.2-5.0 [facility] Work Phone: Serum or plasma albumin/glob ulin mass ratioon 09-12-2021 Albumin/Globulin [Mass ratio] 0.6 {ratio} 0.9-2.4 [facility] Work Phone: Serum or plasma calcium nga urement (mass/volume)on 09-12-2021 Calcium [Mass/Vol] 9.3 mg/dL 8.5-10.1 [facility] Work Phone: Serum or plasma creatinine m easurement (mass/volume)on 09-12-2021 Creatinine [Mass/Vol] 1.35 mg/dL 0.55-1.02 [facility] Work Phone: Comment on above: The validity of the calculated GFR & GFRAA in patients over 70 years has not been determined. Clinical correlation is essential. Serum or plasma urea nitroge n measurement (mass/volume)on 09-12-2021 Urea nitrogen [Mass/Vol] 18 mg/dL 7-18 [facility] Work Phone: Squamous epithelial cells de tection in urine sediment by light microscopyon 09-12-2021 Epithelial cells.squamous LM Ql (Urine sed) 0-5 SEEN /hpf 5-10 [facility] Work Phone: Thin prep Papanicolaou smear with manual screeningon 09-12-2021 Thin prep Papanicolaou smear with manual screening 15 U/L 15-37 [facility] Work Phone: Thin prep Papanicolaou smear with manual screening 3 5-15 [facility] Work Phone: Urine blood detectionon 08-16 RBC Ql (U) 25 /ul Negative [facility] Work Phone: RBC Ql (U) 0-5 SEEN /hpf 0-5 [facility] Work Phone: Urine clarityon 09-12-2021 Clarity (U) Clear Clear [facility] Work Phone: Urine color determinationon 09-12-2021 Color (U) Yellow Yellow [facility] Work Phone: Urine glucose detectionon Glucose Ql (U) Normal mg/dl Normal [facility] Work Phone: Urine leukocyte esterase det ection by dipstickon 09-12-2021 Leukocyte esterase Test strip Ql (U) 25 /ul Negative [facility] Work Phone: Urine pHon 09-12-2021 pH (U) 7.0 [pH] 5.0 - 8.0 [facility] Work Phone: Urine sediment bacteria coun t by microscopy (number/high power field)on 09-12-2021 Bacteria LM.HPF (Urine sed) [#/Area] 0 /[HPF] None Seen [facility] Work Phone: Urine specific gravity measu rementon 09-12-2021 Specific gravity (U) [Rel density] 1.005 1.002-1.03 0 [facility] Work Phone: Urobilinogen Auto test strip Ql (U)on 09-12-2021 Urobilinogen Ql (U) Normal mg/dl Normal [facility] Work Phone: Basophil percentageon 2021 Chloride [Moles/Vol] 109 mmol/L 98-107 [facility] Work Phone: Glucose [Mass/Vol] 100 mg/dL 74-106 [facility] Work Phone: Comment on above: Fasting Glucose resu lt from 100 to 125 mg/dL suggests IMPAIRED HOMEOSTASIS per A.D.A. criteria. Potassium [Moles/Vol] 3.4 mmol/L 3.5-5.1 [facility] Work Phone: Sodium [Moles/Vol] 142 mmol/L 136-145 [facility] Work Phone: WBC (Bld) [#/Vol] 8.4 10*3/uL 4.4-11.0 [facility] Work Phone: Blood erythrocytes count (nu mber/volume)on 08-20-2021 RBC (Bld) [#/Vol] 3.49 10*6/uL 4.2-5.4 [facility] Work Phone: Blood hemoglobin measurement (mass/volume)on 08-20-2021 Hemoglobin (Bld) [Mass/Vol] 9.9 g/dL 12.0-15.0 [facility] Work Phone: Blood platelet mean volumeon 08-20-2021 Platelet mean volume (Bld) [Entitic vol] 10.9 fL 6.2-12.0 [facility] Work Phone: Determination of erythrocyte mean corpuscular volume (MCV)on 08-20-2021 MCV (RBC) [Entitic vol] 95.1 fL 81-99 [facility] Work Phone: Hematocrit Auto (Bld) [Volum e fraction]on 08-20-2021 Hematocrit (Bld) [Volume fraction] 33.2 % 37-47 [facility] Work Phone: Hemoglobin in reticulocytes (mass per reticulocyte)on 08-20-2021 Hemoglobin (Reticulocytes) [Entitic mass] 26.7 pg 30-35 [facility] Work Phone: Iron measurement (mass/mass) on 08-20-2021 Iron (Unsp spec) [Mass/Mass] 28 ug/dL 50-170 [facility] Work Phone: Laboratory - Chemistry and C hemistry - challengeon 08-20-2021 CO2 [Moles/Vol] 25.0 mmol/L 21.0-32.0 [facility] Work Phone: Urea nitrogen/Creatinine [Mass ratio] 20.0 mg/mg 10-20 [facility] Work Phone: Laboratory - Hematology and Cell countson 08-20-2021 Erythrocyte distribution width (RBC) [Entitic vol] 50.3 fL 35.1-43.9 [facility] Work Phone: Erythrocyte distribution width (RBC) [Ratio] 14.5 % 11.6-14.6 [facility] Work Phone: MCH (RBC) [Entitic mass] 28.4 pg 27.0-32.0 [facility] Work Phone: MCHC Auto (RBC) [Mass/Vol]on 08-20-2021 MCHC (RBC) [Mass/Vol] 29.8 g/dL 32-36 [facility] Work Phone: No Panel Informationon 08-20 Estimated GFR (MDRD) Amer 50 mL/min >60 [facility] Work Phone: Comment on above: GFR Calc Estimated GFR (MDRD) Non-Af Amer 42 mL/min >60 [facility] Work Phone: Comment on above: Non- GFR Calc Immature Reticulocyte Fraction 23.10 % 3.00-15.90 [facility] Work Phone: Reticulocyte Count 2.22 % 0.5-1.5 [facility] Work Phone: Total Iron Binding Capacity 269 ug/dL 250-450 [facility] Work Phone: Platelets bldon 08-20-2021 Platelets (Bld) [#/Vol] 404 10*3/uL 150-450 [facility] Work Phone: Serum or plasma calcium nga urement (mass/volume)on 08-20-2021 Calcium [Mass/Vol] 9.3 mg/dL 8.5-10.1 [facility] Work Phone: Serum or plasma creatinine m easurement (mass/volume)on 08-20-2021 Creatinine [Mass/Vol] 1.35 mg/dL 0.55-1.02 [facility] Work Phone: Comment on above: The validity of the calculated GFR & GFRAA in patients over 70 years has not been determined. Clinical correlation is essential. Serum or plasma ferritin molly surement (mass/volume)on 08-20-2021 Ferritin [Mass/Vol] 60 ng/mL 8-252 [facility] Work Phone: Serum or plasma urea nitroge n measurement (mass/volume)on 08-20-2021 Urea nitrogen [Mass/Vol] 27 mg/dL 7-18 [facility] Work Phone: Thin prep Papanicolaou smear with manual screeningon 08-20-2021 Thin prep Papanicolaou smear with manual screening 8 5-15 [facility] Work Phone: Bilirubin Test strip Ql (U)o n 07-21-2021 Bilirubin Ql (U) 1 mg/dL Negative [facility] Work Phone: Comment on above: COLOR OF URINE MAY A FFECT DIPSTICK RESULTS. Ketones Test strip Ql (U)on 07-21-2021 Ketones Ql (U) Negative Negative [facility] Work Phone: Nitrite Test strip Ql (U)on 07-21-2021 Nitrite Ql (U) Positive Negative [facility] Work Phone: Protein Test strip Ql (U)on 07-21-2021 Protein Ql (U) 30 mg/dl Negative [facility] Work Phone: Urine blood detectionon RBC Ql (U) 150 /ul Negative [facility] Work Phone: Urine clarityon 07-21-2021 Clarity (U) Cloudy Clear [facility] Work Phone: Urine color determinationon 07-21-2021 Color (U) Yellow Yellow [facility] Work Phone: Urine glucose detectionon Glucose Ql (U) Normal mg/dl Normal [facility] Work Phone: Urine leukocyte esterase det ection by dipstickon 07-21-2021 Leukocyte esterase Test strip Ql (U) 500 /ul Negative [facility] Work Phone: Urine pHon 07-21-2021 pH (U) 5.0 [pH] 5.0 - 8.0 [facility] Work Phone: Urine specific gravity measu rementon 07-21-2021 Specific gravity (U) [Rel density] 1.015 1.002-1.03 0 [facility] Work Phone: Urobilinogen Auto test strip Ql (U)on 07-21-2021 Urobilinogen Ql (U) 1 mg/dl Normal [facility] Work Phone: [phone] Absolute lymphocyte counton 07-14-2021 Lymphocytes Auto (Unsp spec) [#/Vol] 1.63 10*3/uL 0.83-4.51 [facility] Work Phone: Basophil percentageon 2021 Basophil percentage 117 mg/dL 74-106 [facility] Work Phone: [phone] Basophil percentage 143 mmol/L 136-145 [facility] Work Phone: [phone] Basophil percentage 3.5 mmol/L 3.5-5.1 [facility] Work Phone: Basophil percentage 111 mmol/L 98-107 [facility] Work Phone: [phone] Basophils (Bld) [#/Vol] 5.7 10*3/uL 4.4-11.0 [facility] Work Phone: [phone] Basophils (Bld) [#/Vol] 2.9 10*3/uL 2.0-7.7 [facility] Work Phone: [phone] Basophils/100 WBC (Bld) 51.4 % 47-70 [facility] Work Phone: Basophils/100 WBC (Bld) 4.9 % 0-5 [facility] Work Phone: Basophils/100 WBC (Bld) 0.7 % 0-1 [facility] Work Phone: Chloride [Moles/Vol] 111 mmol/L 98-107 [facility] Work Phone: Eosinophils/100 WBC (Bld) 4.9 % 0-5 [facility] Work Phone: Glucose [Mass/Vol] 117 mg/dL 74-106 [facility] Work Phone: Comment on above: Fasting Glucose resu lt from 100 to 125 mg/dL suggests IMPAIRED HOMEOSTASIS per A.D.A. criteria. Neutrophils (Bld) [#/Vol] 2.9 10*3/uL 2.0-7.7 [facility] Work Phone: Neutrophils/100 WBC (Bld) 51.4 % 47-70 [facility] Work Phone: Potassium [Moles/Vol] 3.5 mmol/L 3.5-5.1 [facility] Work Phone: [phone] Sodium [Moles/Vol] 143 mmol/L 136-145 [facility] Work Phone: WBC (Bld) [#/Vol] 5.7 10*3/uL 4.4-11.0 [facility] Work Phone: Blood erythrocytes count (nu mber/volume)on 07-14-2021 RBC (Bld) [#/Vol] 3.04 10*6/uL 4.2-5.4 [facility] Work Phone: Blood hemoglobin measurement (mass/volume)on 07-14-2021 Hemoglobin (Bld) [Mass/Vol] 8.6 g/dL 12.0-15.0 [facility] Work Phone: Blood lymphocytes/100 leukoc yteson 07-14-2021 Lymphocytes/100 WBC (Bld) 28.6 % 19-41 [facility] Work Phone: Blood monocytes/100 leukocyt eson 07-14-2021 Monocytes/100 WBC (Bld) 13.7 % 0-10 [facility] Work Phone: Blood platelet mean volumeon 07-14-2021 Platelet mean volume (Bld) [Entitic vol] 9.8 fL 6.2-12.0 [facility] Work Phone: Determination of erythrocyte mean corpuscular volume (MCV)on 07-14-2021 MCV (RBC) [Entitic vol] 94.4 fL 81-99 [facility] Work Phone: Hematocrit Auto (Bld) [Volum e fraction]on 07-14-2021 Hematocrit (Bld) [Volume fraction] 28.7 % 37-47 [facility] Work Phone: Laboratory - Chemistry and C hemistry - challengeon 07-14-2021 CO2 [Moles/Vol] 23.0 mmol/L 21.0-32.0 [facility] Work Phone: Urea nitrogen/Creatinine [Mass ratio] 28.2 mg/mg 10-20 [facility] Work Phone: Laboratory - Hematology and Cell countson 07-14-2021 Erythrocyte distribution width (RBC) [Entitic vol] 51.2 fL 35.1-43.9 [facility] Work Phone: Erythrocyte distribution width (RBC) [Ratio] 14.9 % 11.6-14.6 [facility] Work Phone: Immature granulocytes/100 WBC (Bld) 0.700 % 0.0-0.9 [facility] Work Phone: Comment on above: IG% - Immature Granu locytes (promyelocytes, myelocytes and metamyelocytes) > 1% indicates that a LEFT SHIFT is Present. MCH (RBC) [Entitic mass] 28.3 pg 27.0-32.0 [facility] Work Phone: Nucleated RBC/100 WBC (Bld) [Ratio] 0 % 0-5 [facility] Work Phone: MCHC Auto (RBC) [Mass/Vol]on 07-14-2021 MCHC (RBC) [Mass/Vol] 30.0 g/dL 32-36 [facility] Work Phone: No Panel Informationon 07-14 Estimated Creatinine Clearance Calc 31.45 ml/min [facility] Work Phone: Estimated GFR (MDRD) Amer 52 mL/min >60 [facility] Work Phone: Comment on above: GFR Calc Estimated GFR (MDRD) Non-Af Amer 43 mL/min >60 [facility] Work Phone: Comment on above: Non- GFR Calc 28.3 pg 27.0-32.0 [facility] Work Phone: 14.9 % 11.6-14.6 [facility] Work Phone: 51.2 fl 35.1-43.9 [facility] Work Phone: 0.700 % 0.0-0.9 [facility] Work Phone: 0 % 0-5 [facility] Work Phone: 43 mL/min >60 [facility] Work Phone: 52 mL/min >60 [facility] Work Phone: 31.45 ml/min [facility] Work Phone: 28.2 RATIO 10-20 [facility] Work Phone: 23.0 mmol/L 21.0-32.0 [facility] Work Phone: Platelets bldon 07-14-2021 Platelets (Bld) [#/Vol] 401 10*3/uL 150-450 [facility] Work Phone: Serum or plasma calcium nga urement (mass/volume)on 07-14-2021 Calcium [Mass/Vol] 9.1 mg/dL 8.5-10.1 [facility] Work Phone: Serum or plasma creatinine m easurement (mass/volume)on 07-14-2021 Creatinine [Mass/Vol] 1.31 mg/dL 0.55-1.02 [facility] Work Phone: Comment on above: The validity of the calculated GFR & GFRAA in patients over 70 years has not been determined. Clinical correlation is essential. Serum or plasma urea nitroge n measurement (mass/volume)on 07-14-2021 Urea nitrogen [Mass/Vol] 37 mg/dL 7- [facility] Work Phone: Thin prep Papanicolaou smear with manual screeningon 07-14-2021 Thin prep Papanicolaou smear with manual screening 9 - [facility] Work Phone: Basophil percentageon 2021 Basophil percentage 120 mg/dL 74-106 [facility] Work Phone: Basophil percentage 141 mmol/L 136-145 [facility] Work Phone: Basophil percentage 3.5 mmol/L 3.5-5.1 [facility] Work Phone: Basophil percentage 109 mmol/L 98-107 [facility] Work Phone: No Panel Informationon 07-08 37 mL/min >60 [facility] Work Phone: 45 mL/min >60 [facility] Work Phone: 27.65 ml/min [facility] Work Phone: 18.1 RATIO 10-20 [facility] Work Phone: 26.0 mmol/L 21.0-32.0 [facility] Work Phone: Serum or plasma calcium nga urement (mass/volume)on 07-08-2021 Calcium [Mass/Vol] 9.1 mg/dL 8.5-10.1 [facility] Work Phone: Serum or plasma creatinine m easurement (mass/volume)on 07-08-2021 Creatinine [Mass/Vol] 1.49 mg/dL 0.55-1.02 [facility] Work Phone: Serum or plasma urea nitroge n measurement (mass/volume)on 07-08-2021 Urea nitrogen [Mass/Vol] 27 mg/dL - [facility] Work Phone: Thin prep Papanicolaou smear with manual screeningon 07-08-2021 Thin prep Papanicolaou smear with manual screening 6 - [facility] Work Phone: Absolute lymphocyte counton 07-07-2021 Lymphocytes Auto (Unsp spec) [#/Vol] 2.41 10*3/uL 0.83-4.51 [facility] Work Phone: Basophil percentageon 2021 Basophils (Bld) [#/Vol] 7.5 10*3/uL 4.4-11.0 [facility] Work Phone: Basophils (Bld) [#/Vol] 3.6 10*3/uL 2.0-7.7 [facility] Work Phone: Basophils/100 WBC (Bld) 47.6 % 47-70 [facility] Work Phone: Basophils/100 WBC (Bld) 7.9 % 0-5 [facility] Work Phone: [phone] Basophils/100 WBC (Bld) 0.3 % 0-1 [facility] Work Phone: Blood erythrocytes count (nu mber/volume)on 07-07-2021 RBC (Bld) [#/Vol] 2.97 10*6/uL 4.2-5.4 [facility] Work Phone: Blood hemoglobin measurement (mass/volume)on 07-07-2021 Hemoglobin (Bld) [Mass/Vol] 8.4 g/dL 12.0-15.0 [facility] Work Phone: Blood lymphocytes/100 leukoc yteson 07-07-2021 Lymphocytes/100 WBC (Bld) 32.3 % 19-41 [facility] Work Phone: Blood manual differential co mment interpretation (narrative result)on 07-07-2021 Manual differential comment Jacob (Bld) [Interp] SCANNED [facility] Work Phone: Blood monocytes/100 leukocyt eson 07-07-2021 Monocytes/100 WBC (Bld) 11.0 % 0-10 [facility] Work Phone: Blood platelet mean volumeon 07-07-2021 Platelet mean volume (Bld) [Entitic vol] 9.9 fL 6.2-12.0 [facility] Work Phone: Determination of erythrocyte mean corpuscular volume (MCV)on 07-07-2021 MCV (RBC) [Entitic vol] 94.6 fL 81-99 [facility] Work Phone: Hematocrit Auto (Bld) [Volum e fraction]on 07-07-2021 Hematocrit (Bld) [Volume fraction] 28.1 % 37-47 [facility] Work Phone: MCHC Auto (RBC) [Mass/Vol]on 07-07-2021 MCHC (RBC) [Mass/Vol] 29.9 g/dL 32-36 [facility] Work Phone: No Panel Informationon 07-07 28.3 pg 27.0-32.0 [facility] Work Phone: 14.2 % 11.6-14.6 [facility] Work Phone: 49.3 fl 35.1-43.9 [facility] Work Phone: 0.900 % 0.0-0.9 [facility] Work Phone: 0 % 0-5 [facility] Work Phone: Platelets bldon 07-07-2021 Platelets (Bld) [#/Vol] 506 10*3/uL 150-450 [facility] Work Phone: Absolute lymphocyte counton 07-06-2021 Lymphocytes Auto (Unsp spec) [#/Vol] 1.08 10*3/uL 0.83-4.51 [facility] Work Phone: Basophil percentageon 2021 Basophil percentage 102 mg/dL 74-106 [facility] Work Phone: Basophil percentage 140 mmol/L 136-145 [facility] Work Phone: Basophil percentage 3.4 mmol/L 3.5-5.1 [facility] Work Phone: Basophil percentage 110 mmol/L 98-107 [facility] Work Phone: Basophils (Bld) [#/Vol] 7.2 10*3/uL 4.4-11.0 [facility] Work Phone: Basophils (Bld) [#/Vol] 4.7 10*3/uL 2.0-7.7 [facility] Work Phone: Basophils/100 WBC (Bld) 65.6 % 47-70 [facility] Work Phone: Basophils/100 WBC (Bld) 7.6 % 0-5 [facility] Work Phone: Basophils/100 WBC (Bld) 0.4 % 0-1 [facility] Work Phone: Chloride [Moles/Vol] 110 mmol/L 98-107 [facility] Work Phone: Eosinophils/100 WBC (Bld) 7.6 % 0-5 [facility] Work Phone: Glucose [Mass/Vol] 102 mg/dL 74-106 [facility] Work Phone: Comment on above: Fasting Glucose resu lt from 100 to 125 mg/dL suggests IMPAIRED HOMEOSTASIS per A.D.A. criteria. Neutrophils (Bld) [#/Vol] 4.7 10*3/uL 2.0-7.7 [facility] Work Phone: Neutrophils/100 WBC (Bld) 65.6 % 47-70 [facility] Work Phone: Potassium [Moles/Vol] 3.4 mmol/L 3.5-5.1 [facility] Work Phone: Sodium [Moles/Vol] 140 mmol/L 136-145 [facility] Work Phone: WBC (Bld) [#/Vol] 7.2 10*3/uL 4.4-11.0 [facility] Work Phone: Blood erythrocytes count (nu mber/volume)on 07-06-2021 RBC (Bld) [#/Vol] 3.02 10*6/uL 4.2-5.4 [facility] Work Phone: Blood hemoglobin measurement (mass/volume)on 07-06-2021 Hemoglobin (Bld) [Mass/Vol] 8.5 g/dL 12.0-15.0 [facility] Work Phone: Blood lymphocytes/100 leukoc yteson 07-06-2021 Lymphocytes/100 WBC (Bld) 15.1 % 19-41 [facility] Work Phone: Blood manual differential co mment interpretation (narrative result)on 07-06-2021 Manual differential comment Jacob (Bld) [Interp] SCANNED [facility] Work Phone: Blood monocytes/100 leukocyt eson 07-06-2021 Monocytes/100 WBC (Bld) 10.5 % 0-10 [facility] Work Phone: Blood platelet mean volumeon 07-06-2021 Platelet mean volume (Bld) [Entitic vol] 10.2 fL 6.2-12.0 [facility] Work Phone: Determination of erythrocyte mean corpuscular volume (MCV)on 07-06-2021 MCV (RBC) [Entitic vol] 101.7 fL 81-99 [facility] Work Phone: Comment on above: Delta: 96.4 on 07/05 Hematocrit Auto (Bld) [Volum e fraction]on 07-06-2021 Hematocrit (Bld) [Volume fraction] 30.7 % 37-47 [facility] Work Phone: Laboratory - Chemistry and C hemistry - challengeon 07-06-2021 CO2 [Moles/Vol] 23.0 mmol/L 21.0-32.0 [facility] Work Phone: Urea nitrogen/Creatinine [Mass ratio] 19.6 mg/mg 10-20 [facility] Work Phone: Laboratory - Hematology and Cell countson 07-06-2021 Erythrocyte distribution width (RBC) [Entitic vol] 54.0 fL 35.1-43.9 [facility] Work Phone: Erythrocyte distribution width (RBC) [Ratio] 14.5 % 11.6-14.6 [facility] Work Phone: Immature granulocytes/100 WBC (Bld) 0.800 % 0.0-0.9 [facility] Work Phone: Comment on above: IG% - Immature Granu locytes (promyelocytes, myelocytes and metamyelocytes) > 1% indicates that a LEFT SHIFT is Present. MCH (RBC) [Entitic mass] 28.1 pg 27.0-32.0 [facility] Work Phone: Nucleated RBC/100 WBC (Bld) [Ratio] 0 % 0-5 [facility] Work Phone: MCHC Auto (RBC) [Mass/Vol]on 07-06-2021 MCHC (RBC) [Mass/Vol] 27.7 g/dL 32-36 [facility] Work Phone: Comment on above: Delta: 29.4 on 07/05 No Panel Informationon 07-06 Estimated Creatinine Clearance Calc 36.78 ml/min [facility] Work Phone: Estimated GFR (MDRD) Amer 62 mL/min >60 [facility] Work Phone: Comment on above: GFR Calc Estimated GFR (MDRD) Non-Af Amer 52 mL/min >60 [facility] Work Phone: Comment on above: Non- GFR Calc 28.1 pg 27.0-32.0 [facility] Work Phone: 14.5 % 11.6-14.6 [facility] Work Phone: 54.0 fl 35.1-43.9 [facility] Work Phone: 0.800 % 0.0-0.9 [facility] Work Phone: 0 % 0-5 [facility] Work Phone: 52 mL/min >60 [facility] Work Phone: 62 mL/min >60 [facility] Work Phone: 36.78 ml/min [facility] Work Phone: 19.6 RATIO 10-20 [facility] Work Phone: 23.0 mmol/L 21.0-32.0 [facility] Work Phone: Platelets bldon 07-06-2021 Platelets (Bld) [#/Vol] 467 10*3/uL 150-450 [facility] Work Phone: Serum or plasma calcium nga urement (mass/volume)on 07-06-2021 Calcium [Mass/Vol] 8.8 mg/dL 8.5-10.1 [facility] Work Phone: Serum or plasma creatinine m easurement (mass/volume)on 07-06-2021 Creatinine [Mass/Vol] 1.12 mg/dL 0.55-1.02 [facility] Work Phone: Comment on above: The validity of the calculated GFR & GFRAA in patients over 70 years has not been determined. Clinical correlation is essential. Serum or plasma urea nitroge n measurement (mass/volume)on 07-06-2021 Urea nitrogen [Mass/Vol] 22 mg/dL 7-18 [facility] Work Phone: Thin prep Papanicolaou smear with manual screeningon 07-06-2021 Thin prep Papanicolaou smear with manual screening 7 5-15 [facility] Work Phone: Absolute lymphocyte counton 07-04-2021 Lymphocytes Auto (Unsp spec) [#/Vol] 0.84 10*3/uL 0.83-4.51 [facility] Work Phone: Lymphocytes Auto (Unsp spec) [#/Vol] 0.78 10*3/uL 0.83-4.51 [facility] Work Phone: Basophil percentageon 2021 Basophil percentage 103 mg/dL 74-106 [facility] Phone: Basophil percentage 139 mmol/L 136-145 [facility] Work Phone: Basophil percentage 3.8 mmol/L 3.5-5.1 [facility] Work Phone: Basophil percentage 108 mmol/L 98-107 [facility] Work Phone: Basophils (Bld) [#/Vol] 13.8 10*3/uL 4.4-11.0 [facility] Work Phone: Basophils (Bld) [#/Vol] 11.3 10*3/uL 2.0-7.7 [facility] Work Phone: Basophils/100 WBC (Bld) 0.1 % 0-1 [facility] Work Phone: Basophils/100 WBC (Bld) 82.5 % 47-70 [facility] Work Phone: Basophils/100 WBC (Bld) 3.6 % 0-5 [facility] Work Phone: Chloride [Moles/Vol] 108 mmol/L 98-107 [facility] Work Phone: Eosinophils/100 WBC (Bld) 3.6 % 0-5 [facility] Work Phone: Glucose [Mass/Vol] 103 mg/dL 74-106 [facility] Work Phone: Comment on above: Fasting Glucose resu lt from 100 to 125 mg/dL suggests IMPAIRED HOMEOSTASIS per A.D.A. criteria. Neutrophils (Bld) [#/Vol] 11.3 10*3/uL 2.0-7.7 [facility] Work Phone: Neutrophils/100 WBC (Bld) 82.5 % 47-70 [facility] Work Phone: Potassium [Moles/Vol] 3.8 mmol/L 3.5-5.1 [facility] Work Phone: Sodium [Moles/Vol] 139 mmol/L 136-145 [facility] Work Phone: WBC (Bld) [#/Vol] 13.8 10*3/uL 4.4-11.0 [facility] Work Phone: Basophil percentage 114 mg/dL 74-106 [facility] Work Phone: Basophil percentage 6.9 g/dL 6.4-8.2 [facility] Work Phone: Basophil percentage 0.30 mg/dL 0.20-1.00 [facility] Work Phone: Basophil percentage 140 mmol/L 136-145 [facility] Work Phone: Basophil percentage 3.9 mmol/L 3.5-5.1 [facility] Work Phone: Basophil percentage 108 mmol/L 98-107 [facility] Work Phone: Basophil percentage 0.8 mmol/L 0.4-2.0 [facility] Work Phone: Basophils (Bld) [#/Vol] 13.7 10*3/uL 4.4-11.0 [facility] Work Phone: Basophils (Bld) [#/Vol] 11.3 10*3/uL 2.0-7.7 [facility] Work Phone: Basophils/100 WBC (Bld) 83.0 % 47-70 [facility] Work Phone: Basophils/100 WBC (Bld) 3.2 % 0-5 [facility] Work Phone: Bilirubin [Mass/Vol] 0.30 mg/dL 0.20-1.00 [facility] Work Phone: Comment on above: For patients on eltr ombopag therapy, use of Dimension [place] TBIL is not recommended. Chloride [Moles/Vol] 108 mmol/L 98-107 [facility] Work Phone: Eosinophils/100 WBC (Bld) 3.2 % 0-5 [facility] Work Phone: Glucose [Mass/Vol] 114 mg/dL 74-106 [facility] Work Phone: Comment on above: Fasting Glucose resu lt from 100 to 125 mg/dL suggests IMPAIRED HOMEOSTASIS per A.D.A. criteria. Lactate [Moles/Vol] 0.8 mmol/L 0.4-2.0 [facility] Work Phone: Neutrophils (Bld) [#/Vol] 11.3 10*3/uL 2.0-7.7 [facility] Work Phone: Neutrophils/100 WBC (Bld) 83.0 % 47-70 [facility] Work Phone: Potassium [Moles/Vol] 3.9 mmol/L 3.5-5.1 [facility] Work Phone: Protein [Mass/Vol] 6.9 g/dL 6.4-8.2 [facility] Work Phone: Sodium [Moles/Vol] 140 mmol/L 136-145 [facility] Work Phone: WBC (Bld) [#/Vol] 13.7 10*3/uL 4.4-11.0 [facility] Work Phone: Blood erythrocytes count (nu mber/volume)on 07-04-2021 RBC (Bld) [#/Vol] 3.41 10*6/uL 4.2-5.4 [facility] Work Phone: RBC (Bld) [#/Vol] 3.04 10*6/uL 4.2-5.4 [facility] Work Phone: Blood hemoglobin measurement (mass/volume)on 07-04-2021 Hemoglobin (Bld) [Mass/Vol] 9.7 g/dL 12.0-15.0 [facility] Work Phone: Hemoglobin (Bld) [Mass/Vol] 8.6 g/dL 12.0-15.0 [facility] Work Phone: Blood lymphocytes/100 leukoc yteson 07-04-2021 Lymphocytes/100 WBC (Bld) 6.1 % 19-41 [facility] Work Phone: Lymphocytes/100 WBC (Bld) 5.7 % 19-41 [facility] Work Phone: Blood monocytes/100 leukocyt eson 07-04-2021 Monocytes/100 WBC (Bld) 6.6 % 0-10 [facility] Work Phone: Monocytes/100 WBC (Bld) 7.0 % 0-10 [facility] Work Phone: Blood platelet mean volumeon 07-04-2021 Platelet mean volume (Bld) [Entitic vol] 9.9 fL 6.2-12.0 [facility] Work Phone: Platelet mean volume (Bld) [Entitic vol] 10.0 fL 6.2-12.0 [facility] Work Phone: [phone] Determination of erythrocyte mean corpuscular volume (MCV)on 07-04-2021 MCV (RBC) [Entitic vol] 97.7 fL 81-99 [facility] Work Phone: MCV (RBC) [Entitic vol] 95.1 fL 81-99 [facility] Work Phone: Hematocrit Auto (Bld) [Volum e fraction]on 07-04-2021 Hematocrit (Bld) [Volume fraction] 33.3 % 37-47 [facility] Work Phone: [phone] Hematocrit (Bld) [Volume fraction] 28.9 % 37-47 [facility] Work Phone: [phone] INR in Blood by Coagulation assayon 07-04-2021 INR Coag (Bld) [Relative time] 1.8 {INR} [facility] Work Phone: Laboratory - Chemistry and C hemistry - challengeon 07-04-2021 CO2 [Moles/Vol] 24.0 mmol/L 21.0-32.0 [facility] Work Phone: Urea nitrogen/Creatinine [Mass ratio] 22.1 mg/mg 12-03 [facility] Work Phone: ALP [Catalytic activity/Vol] 92 U/L 45-117 [facility] Work Phone: ALT [Catalytic activity/Vol] 17 U/L 13-56 [facility] Work Phone: CO2 [Moles/Vol] 24.0 mmol/L 21.0-32.0 [facility] Work Phone: Globulin (S) [Mass/Vol] 4.6 g/dL 2.2-4.2 [facility] Work Phone: Urea nitrogen/Creatinine [Mass ratio] 20.6 mg/mg 12-03 [facility] Work Phone: Laboratory - Coagulationon 0 07-04-2021 aPTT Coag (Bld) [Time] 32.0 s 24.1-36.2 [facility] Work Phone: PT Coag (PPP) [Time] 20.4 s 11.7-14.9 [facility] Work Phone: Laboratory - Hematology and Cell countson 07-04-2021 Erythrocyte distribution width (RBC) [Entitic vol] 52.6 fL 35.1-43.9 [facility] Work Phone: Erythrocyte distribution width (RBC) [Ratio] 14.7 % 11.6-14.6 [facility] Work Phone: Immature granulocytes/100 WBC (Bld) 1.100 % 0.0-0.9 [facility] Work Phone: Comment on above: IG% - Immature Granu locytes (promyelocytes, myelocytes and metamyelocytes) > 1% indicates that a LEFT SHIFT is Present. MCH (RBC) [Entitic mass] 28.4 pg 27.0-32.0 [facility] Work Phone: Nucleated RBC/100 WBC (Bld) [Ratio] 0 % 0-5 [facility] Work Phone: Erythrocyte distribution width (RBC) [Entitic vol] 51.0 fL 35.1-43.9 [facility] Work Phone: Erythrocyte distribution width (RBC) [Ratio] 14.7 % 11.6-14.6 [facility] Work Phone: Immature granulocytes/100 WBC (Bld) 1.000 % 0.0-0.9 [facility] Work Phone: Comment on above: IG% - Immature Granu locytes (promyelocytes, myelocytes and metamyelocytes) > 1% indicates that a LEFT SHIFT is Present. MCH (RBC) [Entitic mass] 28.3 pg 27.0-32.0 [facility] Work Phone: MCHC Auto (RBC) [Mass/Vol]on 07-04-2021 MCHC (RBC) [Mass/Vol] 29.1 g/dL 32-36 [facility] Work Phone: MCHC (RBC) [Mass/Vol] 29.8 g/dL 32-36 [facility] Work Phone: No Panel Informationon 07-04 Estimated Creatinine Clearance Calc 30.29 ml/min [facility] Work Phone: Estimated GFR (MDRD) Amer 50 mL/min >60 [facility] Work Phone: Comment on above: GFR Calc Estimated GFR (MDRD) Non-Af Amer 41 mL/min >60 [facility] Work Phone: Comment on above: Non- GFR Calc 28.4 pg 27.0-32.0 [facility] Work Phone: 14.7 % 11.6-14.6 [facility] Work Phone: 52.6 fl 35.1-43.9 [facility] Work Phone: 1.100 % 0.0-0.9 [facility] Work Phone: 0 % 0-5 [facility] Work Phone: 41 mL/min >60 [facility] Work Phone: 50 mL/min >60 [facility] Work Phone: [phone] 30.29 ml/min [facility] Work Phone: 22.1 RATIO 10-20 [facility] Work Phone: 24.0 mmol/L 21.0-32.0 [facility] Work Phone: 20.4 SECONDS 11.7-14.9 [facility] Work Phone: 32.0 Seconds 24.1-36.2 [facility] Work Phone: [facility]: Estimated Creatinine Clearance Calc 30.29 ml/min [facility] Work Phone: [phone] Estimated GFR (MDRD) Amer 50 mL/min >60 [facility] Work Phone: Comment on above: GFR Calc Estimated GFR (MDRD) Non-Af Amer 41 mL/min >60 [facility] Work Phone: Comment on above: Non- GFR Calc 28.3 pg 27.0-32.0 [facility] Work Phone: [phone] 14.7 % 11.6-14.6 [facility] Work Phone: 51.0 fl 35.1-43.9 [facility] Work Phone: 1.000 % 0.0-0.9 [facility] Work Phone: 0 % 0-5 [facility] Work Phone: 41 mL/min >60 [facility] Work Phone: 50 mL/min >60 [facility] Work Phone: 30.29 ml/min [facility] Work Phone: 20.6 RATIO 10-20 [facility] Work Phone: 4.6 g/dL 2.2-4.2 [facility] Work Phone: 92 U/L 45-117 [facility] Work Phone: 17 U/L 13-56 [facility] Work Phone: 24.0 mmol/L 21.0-32.0 [facility] Work Phone: Platelets bldon 07-04-2021 Platelets (Bld) [#/Vol] 528 10*3/uL 150-450 [facility] Work Phone: Platelets (Bld) [#/Vol] 500 10*3/uL 150-450 [facility] Work Phone: Serum or plasma albumin nga urement (mass/volume)on 07-04-2021 Albumin [Mass/Vol] 2.3 g/dL 3.2-5.0 [facility] Work Phone: Serum or plasma albumin/glob ulin mass ratioon 07-04-2021 Albumin/Globulin [Mass ratio] 0.5 {ratio} 0.9-2.4 [facility] Work Phone: Serum or plasma calcium nga urement (mass/volume)on 07-04-2021 Calcium [Mass/Vol] 9.1 mg/dL 8.5-10.1 [facility] Work Phone: Calcium [Mass/Vol] 8.9 mg/dL 8.5-10.1 [facility] Work Phone: Serum or plasma creatinine m easurement (mass/volume)on 07-04-2021 Creatinine [Mass/Vol] 1.36 mg/dL 0.55-1.02 [facility] Work Phone: Comment on above: The validity of the calculated GFR & GFRAA in patients over 70 years has not been determined. Clinical correlation is essential. Creatinine [Mass/Vol] 1.36 mg/dL 0.55-1.02 [facility] Work Phone: Comment on above: The validity of the calculated GFR & GFRAA in patients over 70 years has not been determined. Clinical correlation is essential. Serum or plasma urea nitroge n measurement (mass/volume)on 07-04-2021 Urea nitrogen [Mass/Vol] 30 mg/dL 7- [facility] Work Phone: Urea nitrogen [Mass/Vol] 28 mg/dL 7- [facility] Work Phone: Thin prep Papanicolaou smear with manual screeningon 07-04-2021 Thin prep Papanicolaou smear with manual screening 7 5-15 [facility] Work Phone: Thin prep Papanicolaou smear with manual screening 17 U/L 15-37 [facility] Work Phone: Absolute lymphocyte counton 07-03-2021 Lymphocytes Auto (Unsp spec) [#/Vol] 0.31 10*3/uL 0.83-4.51 [facility] Work Phone: Bacteria identified Cx Nom ( U)on 07-03-2021 Urine culture Culture exhibits no growth. [facility] Work Phone: Basophil percentageon 2021 Basophil percentage 1.8 mmol/L 0.4-2.0 [facility] Work Phone: Basophils/100 WBC (Bld) 0.1 % 0-1 [facility] Work Phone: Chloride [Moles/Vol] 106 mmol/L 98-107 [facility] Work Phone: Eosinophils/100 WBC (Bld) 3.7 % 0-5 [facility] Work Phone: Glucose [Mass/Vol] 131 mg/dL 74-106 [facility] Work Phone: Comment on above: Fasting Glucose resu lt greater than or equal to 126 mg/dL suggests DIABETES MELLITUS per A.D.A. criteria. Lactate [Moles/Vol] 1.8 mmol/L 0.4-2.0 [facility] Work Phone: Neutrophils (Bld) [#/Vol] 8.6 10*3/uL 2.0-7.7 [facility] Work Phone: Neutrophils/100 WBC (Bld) 88.1 % 47-70 [facility] Work Phone: Potassium [Moles/Vol] 4.0 mmol/L 3.5-5.1 [facility] Work Phone: Sodium [Moles/Vol] 141 mmol/L 136-145 [facility] Work Phone: WBC (Bld) [#/Vol] 9.7 10*3/uL 4.4-11.0 [facility] Work Phone: Basophil percentage 0 SEEN /hpf 0-5 [facility] Work Phone: Bilirubin Test strip Ql (U)o n 07-03-2021 Bilirubin Ql (U) Negative Negative [facility] Work Phone: Blood erythrocytes count (nu mber/volume)on 07-03-2021 RBC (Bld) [#/Vol] 3.24 10*6/uL 4.2-5.4 [facility] Work Phone: Blood hemoglobin measurement (mass/volume)on 07-03-2021 Hemoglobin (Bld) [Mass/Vol] 9.3 g/dL 12.0-15.0 [facility] Work Phone: [phone] Blood lymphocytes/100 leukoc yteson 07-03-2021 Lymphocytes/100 WBC (Bld) 3.2 % 19-41 [facility] Work Phone: Blood monocytes/100 leukocyt eson 07-03-2021 Monocytes/100 WBC (Bld) 4.3 % 0-10 [facility] Work Phone: Blood platelet adequacy dete ction by light microscopyon 07-03-2021 Platelets LM Ql (Bld) [facility] [facility] Work Phone: Blood platelet mean volumeon 07-03-2021 Platelet mean volume (Bld) [Entitic vol] 9.7 fL 6.2-12.0 [facility] Work Phone: Determination of erythrocyte mean corpuscular volume (MCV)on 07-03-2021 MCV (RBC) [Entitic vol] 97.2 fL 81-99 [facility] Work Phone: Hematocrit Auto (Bld) [Volum e fraction]on 07-03-2021 Hematocrit (Bld) [Volume fraction] 31.5 % 37-47 [facility] Work Phone: Ketones Test strip Ql (U)on 07-03-2021 Ketones Ql (U) Negative Negative [facility] Work Phone: Laboratory - Chemistry and C hemistry - challengeon 07-03-2021 CO2 [Moles/Vol] 27.0 mmol/L 21.0-32.0 [facility] Work Phone: Urea nitrogen/Creatinine [Mass ratio] 25.2 mg/mg 12-03 [facility] Work Phone: Laboratory - Hematology and Cell countson 07-03-2021 Erythrocyte distribution width (RBC) [Entitic vol] 51.6 fL 35.1-43.9 [facility] Work Phone: Erythrocyte distribution width (RBC) [Ratio] 14.5 % 11.6-14.6 [facility] Work Phone: Immature granulocytes/100 WBC (Bld) 0.600 % 0.0-0.9 [facility] Work Phone: Comment on above: IG% - Immature Granu locytes (promyelocytes, myelocytes and metamyelocytes) > 1% indicates that a LEFT SHIFT is Present. MCH (RBC) [Entitic mass] 28.7 pg 27.0-32.0 [facility] Work Phone: Nucleated RBC/100 WBC (Bld) [Ratio] 0 % 0-5 [facility] Work Phone: MCHC Auto (RBC) [Mass/Vol]on 07-03-2021 MCHC (RBC) [Mass/Vol] 29.5 g/dL 32-36 [facility] Work Phone: Mucus LM Ql (Urine sed)on Mucus Ql (Urine sed) 0 SEEN /hpf [facility] Work Phone: Nitrite Test strip Ql (U)on 07-03-2021 Nitrite Ql (U) Negative Negative [facility] Work Phone: No Panel Informationon 07-03 Respiratory Panel (PCR) [facility] Work Phone: Estimated Creatinine Clearance Calc 33.49 ml/min [facility] Work Phone: Estimated GFR (MDRD) Amer 56 mL/min >60 [facility] Work Phone: Comment on above: GFR Calc Estimated GFR (MDRD) Non-Af Amer 46 mL/min >60 [facility] Work Phone: Comment on above: Non- GFR Calc No growth in 5 days. [facility] Work Phone: Platelets bldon 07-03-2021 Platelets (Bld) [#/Vol] 496 10*3/uL 150-450 [facility] Work Phone: Protein Test strip Ql (U)on 07-03-2021 Protein Ql (U) Negative Negative [facility] Work Phone: Serum or plasma calcium nga urement (mass/volume)on 07-03-2021 Calcium [Mass/Vol] 9.6 mg/dL 8.5-10.1 [facility] Work Phone: Serum or plasma creatinine m easurement (mass/volume)on 07-03-2021 Creatinine [Mass/Vol] 1.23 mg/dL 0.55-1.02 [facility] Work Phone: Comment on above: The validity of the calculated GFR & GFRAA in patients over 70 years has not been determined. Clinical correlation is essential. Serum or plasma urea nitroge n measurement (mass/volume)on 07-03-2021 Urea nitrogen [Mass/Vol] 31 mg/dL 7-18 [facility] Work Phone: Squamous epithelial cells de tection in urine sediment by light microscopyon 07-03-2021 Epithelial cells.squamous LM Ql (Urine sed) 0 SEEN /hpf 5-10 [facility] Work Phone: Thin prep Papanicolaou smear with manual screeningon 07-03-2021 Thin prep Papanicolaou smear with manual screening 8 5-15 [facility] Work Phone: Urine blood detectionon 06-15 RBC Ql (U) 10 /ul Negative [facility] Work Phone: RBC Ql (U) 0-5 SEEN /hpf 0-5 [facility] Work Phone: Urine clarityon 07-03-2021 Clarity (U) Clear Clear [facility] Work Phone: Urine color determinationon 07-03-2021 Color (U) Yellow Yellow [facility] Work Phone: Urine glucose detectionon Glucose Ql (U) Normal mg/dl Normal [facility] Work Phone: Urine leukocyte esterase det ection by dipstickon 07-03-2021 Leukocyte esterase Test strip Ql (U) Negative Negative [facility] Work Phone: Urine pHon 07-03-2021 pH (U) 7.0 [pH] 5.0 - 8.0 [facility] Work Phone: Urine sediment bacteria coun t by microscopy (number/high power field)on 07-03-2021 Bacteria LM.HPF (Urine sed) [#/Area] 0 /[HPF] None Seen [facility] Work Phone: Urine specific gravity measu rementon 07-03-2021 Specific gravity (U) [Rel density] 1.010 1.002-1.03 0 [facility] Work Phone: Urobilinogen Auto test strip Ql (U)on 07-03-2021 Urobilinogen Ql (U) Normal mg/dl Normal [facility] Work Phone: Basophil percentageon 2021 Basophil percentage 142 mg/dL 74-106 [facility] Work Phone: Basophil percentage 141 mmol/L 136-145 [facility] Work Phone: Basophil percentage 3.4 mmol/L 3.5-5.1 [facility] Work Phone: Basophil percentage 108 mmol/L 98-107 [facility] Work Phone: Basophils (Bld) [#/Vol] 7.6 10*3/uL 4.4-11.0 [facility] Work Phone: Chloride [Moles/Vol] 108 mmol/L 98-107 [facility] Work Phone: Glucose [Mass/Vol] 142 mg/dL 74-106 [facility] Work Phone: Comment on above: Fasting Glucose resu lt greater than or equal to 126 mg/dL suggests DIABETES MELLITUS per A.D.A. criteria. Potassium [Moles/Vol] 3.4 mmol/L 3.5-5.1 [facility] Work Phone: Sodium [Moles/Vol] 141 mmol/L 136-145 [facility] Work Phone: WBC (Bld) [#/Vol] 7.6 10*3/uL 4.4-11.0 [facility] Work Phone: Blood erythrocytes count (nu mber/volume)on 06-26-2021 RBC (Bld) [#/Vol] 2.94 10*6/uL 4.2-5.4 [facility] Work Phone: Blood hemoglobin measurement (mass/volume)on 06-26-2021 Hemoglobin (Bld) [Mass/Vol] 8.4 g/dL 12.0-15.0 [facility] Work Phone: Blood platelet mean volumeon 06-26-2021 Platelet mean volume (Bld) [Entitic vol] 9.9 fL 6.2-12.0 [facility] Work Phone: Determination of erythrocyte mean corpuscular volume (MCV)on 06-26-2021 MCV (RBC) [Entitic vol] 96.3 fL 81-99 [facility] Work Phone: Hematocrit Auto (Bld) [Volum e fraction]on 06-26-2021 Hematocrit (Bld) [Volume fraction] 28.3 % 37-47 [facility] Work Phone: Laboratory - Chemistry and C hemistry - challengeon 06-26-2021 CO2 [Moles/Vol] 26.0 mmol/L 21.0-32.0 [facility] Work Phone: Urea nitrogen/Creatinine [Mass ratio] 22.3 mg/mg 10-20 [facility] Work Phone: Laboratory - Hematology and Cell countson 06-26-2021 Erythrocyte distribution width (RBC) [Entitic vol] 49.3 fL 35.1-43.9 [facility] Work Phone: Erythrocyte distribution width (RBC) [Ratio] 14.1 % 11.6-14.6 [facility] Work Phone: MCH (RBC) [Entitic mass] 28.6 pg 27.0-32.0 [facility] Work Phone: MCHC Auto (RBC) [Mass/Vol]on 06-26-2021 MCHC (RBC) [Mass/Vol] 29.7 g/dL 32-36 [facility] Work Phone: No Panel Informationon 06-26 Estimated Creatinine Clearance Calc 36.78 ml/min [facility] Work Phone: Estimated GFR (MDRD) Amer 62 mL/min >60 [facility] Work Phone: Comment on above: GFR Calc Estimated GFR (MDRD) Non-Af Amer 52 mL/min >60 [facility] Work Phone: Comment on above: Non- GFR Calc 28.6 pg 27.0-32.0 [facility] Work Phone: 14.1 % 11.6-14.6 [facility] Work Phone: 49.3 fl 35.1-43.9 [facility] Work Phone: 52 mL/min >60 [facility] Work Phone: 62 mL/min >60 [facility] Work Phone: 36.78 ml/min [facility] Work Phone: 22.3 RATIO 10-20 [facility] Work Phone: 26.0 mmol/L 21.0-32.0 [facility] Work Phone: Platelets bldon 06-26-2021 Platelets (Bld) [#/Vol] 275 10*3/uL 150-450 [facility] Work Phone: Serum or plasma calcium nga urement (mass/volume)on 06-26-2021 Calcium [Mass/Vol] 8.6 mg/dL 8.5-10.1 [facility] Work Phone: Serum or plasma creatinine m easurement (mass/volume)on 06-26-2021 Creatinine [Mass/Vol] 1.12 mg/dL 0.55-1.02 [facility] Work Phone: Comment on above: The validity of the calculated GFR & GFRAA in patients over 70 years has not been determined. Clinical correlation is essential. Serum or plasma urea nitroge n measurement (mass/volume)on 06-26-2021 Urea nitrogen [Mass/Vol] 25 mg/dL 7-18 [facility] Work Phone: Thin prep Papanicolaou smear with manual screeningon 06-26-2021 Thin prep Papanicolaou smear with manual screening 7 5-15 [facility] Work Phone: Glucose Glucometer (BldC) [M ass/Vol]on 06-24-2021 Glucose [Mass/Vol] 138 mg/dL 74-106 [facility] Work Phone: Comment on above: MANAGEMENT OF PATIEN T CARE PER NURSING PROTOCOL Laboratory - Chemistry and C hemistry - challengeon 06-22-2021 Magnesium [Mass/Vol] 2.3 mg/dL 1.6-2.6 [facility] Work Phone: [phone] No Panel Informationon 06-22 2.3 mg/dL 1.6-2.6 [facility] Work Phone: Absolute lymphocyte counton 06-08-2021 Lymphocytes Auto (Unsp spec) [#/Vol] 1.68 10*3/uL 0.83-4.51 [facility] Work Phone: Basophil percentageon 2021 Basophils (Bld) [#/Vol] 5.3 10*3/uL 2.0-7.7 [facility] Work Phone: [phone] Basophils/100 WBC (Bld) 0.5 % 0-1 [facility] Work Phone: Basophils/100 WBC (Bld) 66.1 % 47-70 [facility] Work Phone: [phone] Basophils/100 WBC (Bld) 2.9 % 0-5 [facility] Work Phone: Eosinophils/100 WBC (Bld) 2.9 % 0-5 [facility] Work Phone: Neutrophils (Bld) [#/Vol] 5.3 10*3/uL 2.0-7.7 [facility] Work Phone: Neutrophils/100 WBC (Bld) 66.1 % 47-70 [facility] Work Phone: Blood lymphocytes/100 leukoc yteson 06-08-2021 Lymphocytes/100 WBC (Bld) 21.1 % 19-41 [facility] Work Phone: Blood monocytes/100 leukocyt eson 06-08-2021 Monocytes/100 WBC (Bld) 9.1 % 0-10 [facility] Work Phone: Laboratory - Hematology and Cell countson 06-08-2021 Immature granulocytes/100 WBC (Bld) 0.300 % 0.0-0.9 [facility] Work Phone: Comment on above: IG% - Immature Granu locytes (promyelocytes, myelocytes and metamyelocytes) > 1% indicates that a LEFT SHIFT is Present. Nucleated RBC/100 WBC (Bld) [Ratio] 0 % 0-5 [facility] Work Phone: No Panel Informationon 06-08 Nasal Screen MRSA/MSSA Wo [facility] Work Phone: 0.300 % 0.0-0.9 [facility] Work Phone: 0 % 0-5 [facility] Work Phone: Serum or plasma albumin nga urement (mass/volume)on 06-08-2021 Albumin [Mass/Vol] 3.2 g/dL 3.2-5.0 [facility] Work Phone: Bronchoalveolar lavage cultu re with Gram stainon 05-22-2021 Respiratory Culture Pseudomonas aeroginosa [facility] Work Phone: Bronchoalveolar lavage culture with Gram stain Pseudomonas aeroginosa [facility] Work Phone: Gram stain for investigation of transfusion reactionon 05-22-2021 Microscopic observation Gram stain Nom (Unsp spec) [facility] Work Phone: .Auto Diffon 05-15-2021 Basophil, Absolute 0.00 10 3/mcL Normal 0.00-0.19 [facility] ([place]) Comment on above: Performed By: #### C BC, ADIFF, ANEU, BMP, ALB, GFR, ABOG, ANSG #### [address] [address] Basophils/100 WBC (Bld) 0.4 % Normal 0.0-2.5 A [facility] ([place]) Comment on above: Performed By: #### C BC, ADIFF, ANEU, BMP, ALB, GFR, ABOG, ANSG #### [address] [address] Eosinophil, Absolute 0.20 10 3/mcL Normal 0.00-0.40 A [facility] ([place]) Comment on above: Performed By: #### C BC, ADIFF, ANEU, BMP, ALB, GFR, ABOG, ANSG #### [address] [address] Eosinophils/100 WBC (Bld) 3.0 % Normal 0.0-7.0 [facility] ([place]) Comment on above: Performed By: #### C BC, ADIFF, ANEU, BMP, ALB, GFR, ABOG, ANSG #### [address] [address] Lymphocyte, Absolute 1.40 10 3/mcL Normal 0.77-3.85 A [facility] ([place]) Comment on above: Performed By: #### C BC, ADIFF, ANEU, BMP, ALB, GFR, ABOG, ANSG #### [address] [address] Lymphocytes/100 WBC (Bld) 18.2 % Normal 10.0-50.0 [facility] ([place]) Comment on above: Performed By: #### C BC, ADIFF, ANEU, BMP, ALB, GFR, ABOG, ANSG #### [address] [address] Monocyte, Absolute 0.50 10 3/mcL Normal 0.15-1.00 [facility] ([place]) Comment on above: Performed By: #### C BC, ADIFF, ANEU, BMP, ALB, GFR, ABOG, ANSG #### [address] [address] Monocytes/100 WBC (Bld) 7.0 % Normal 1.7-13.0 A [facility] ([place]) Comment on above: Performed By: #### C BC, ADIFF, ANEU, BMP, ALB, GFR, ABOG, ANSG #### [address] [address] Neutrophils/100 WBC (Bld) 71.4 % Normal 37.0-80.0 [facility] ([place]) Comment on above: Performed By: #### C BC, ADIFF, ANEU, BMP, ALB, GFR, ABOG, ANSG #### [address] [address] .GFRon 05-15-2021 GFR Non- 31 ml/min/1.73sqm Normal [facility] ([place]) Comment on above: Result Comment: GFR Population mean for , Non- Americans Ages 20-29 = 116 mL/min/1.73 sq.m. Ages 30-39 = 107 mL/min/1.73 sq.m. Ages 40-49 = 99 mL/min/1.73 sq.m. Ages 50-59 = 93 mL/min/1.73 sq.m. Ages 60-69 = 85 mL/min/1.73 sq.m. Ages 70+ = 75 mL/min/1.73 sq.m. Chronic Kidney Disease: Less than 60 mL/min/1.73 square meters End Stage Renal Disease: Less than 15 mL/min/1.73 square meters Performed By: #### C BC, ADIFF, ANEU, BMP, ALB, GFR, ABOG, ANSG #### [address] [address] GFR 38 ml/min/1.73sqm Normal [facility] ([place]) Comment on above: Result Comment: GFR Population mean for , Non- Americans Ages 20-29 = 116 mL/min/1.73 sq.m. Ages 30-39 = 107 mL/min/1.73 sq.m. Ages 40-49 = 99 mL/min/1.73 sq.m. Ages 50-59 = 93 mL/min/1.73 sq.m. Ages 60-69 = 85 mL/min/1.73 sq.m. Ages 70+ = 75 mL/min/1.73 sq.m. Chronic Kidney Disease: Less than 60 mL/min/1.73 square meters End Stage Renal Disease: Less than 15 mL/min/1.73 square meters Performed By: #### C BC, ADIFF, ANEU, BMP, ALB, GFR, ABOG, ANSG #### [address] [address] .NEUABSon 05-15-2021 Neutrophil, Absolute 5.60 10 3/mcL Normal 2.85-6.16 A [facility] ([place]) Comment on above: Performed By: #### C BC, ADIFF, ANEU, BMP, ALB, GFR, ABOG, ANSG #### [address] [address] A1Con 05-15-2021 HbA1c (Bld) [Mass fraction] 6.6 % High 4.3-6.4 [facility] ([place]) Comment on above: Order Comment: OFF B LOOD IN LAB Performed By: #### C BC, ADIFF, ANEU, BMP, ALB, GFR, ABOG, ANSG #### [address] [address] ALBon 05-15-2021 Albumin Level 3.4 G/dL Normal 3.4-4.8 [facility] ([place]) Comment on above: Performed By: #### C BC, ADIFF, ANEU, BMP, ALB, GFR, ABOG, ANSG #### [address] [address] APTTon 05-15-2021 aPTT Coag (Bld) [Time] 41.3 s High 24.8-33.3 Counts include 234 beds at the [facility] ([place]) Comment on above: Result Comment: For Heparin anticoagulation therapy, the recommended therapeutic range is: 53.6-87.4 seconds (1.5 - 2.5 the normal plasma mean). Patients on heparin therapy may have an extreme result. Performed By: #### P BNP, APTT, PRO #### [address] [address] Heparin dose (APTT) Unknown Normal [facility] ([place]) Comment on above: Performed By: #### P BNP, APTT, PRO #### [address] [address] BMPon 05-15-2021 BUN/Creatinine Ratio 23 ratio Normal 7-27 [facility] ([place]) Comment on above: Performed By: #### C BC, ADIFF, ANEU, BMP, ALB, GFR, ABOG, ANSG #### [address] [address] Calcium [Mass/Vol] 10.0 mg/dL Normal 8.4-10.2 [facility] ([place]) Comment on above: Performed By: #### C BC, ADIFF, ANEU, BMP, ALB, GFR, ABOG, ANSG #### [address] [address] Chloride [Moles/Vol] 105 mmol/L Normal 98-107 [facility] ([place]) Comment on above: Performed By: #### C BC, ADIFF, ANEU, BMP, ALB, GFR, ABOG, ANSG #### [address] [address] CO2 [Moles/Vol] 26 mmol/L Normal 23-31 [facility] ([place]) Comment on above: Performed By: #### C BC, ADIFF, ANEU, BMP, ALB, GFR, ABOG, ANSG #### [address] [address] Creatinine [Mass/Vol] 1.65 mg/dL High 0.55-1.02 [facility] ([place]) Comment on above: Performed By: #### C BC, ADIFF, ANEU, BMP, ALB, GFR, ABOG, ANSG #### [address] [address] Electrolyte Balance 14.0 mEq/L Normal 4.0-15.0 [facility] ([place]) Comment on above: Performed By: #### C BC, ADIFF, ANEU, BMP, ALB, GFR, ABOG, ANSG #### [address] [address] Glucose [Mass/Vol] 99 mg/dL Normal 80-115 [facility] ([place]) Comment on above: Performed By: #### C BC, ADIFF, ANEU, BMP, ALB, GFR, ABOG, ANSG #### [address] [address] Potassium [Moles/Vol] 4.3 mmol/L Normal 3.5-5.1 [facility] ([place]) Comment on above: Performed By: #### C BC, ADIFF, ANEU, BMP, ALB, GFR, ABOG, ANSG #### [address] [address] Sodium [Moles/Vol] 145 mmol/L Normal 136-145 [facility] ([place]) Comment on above: Performed By: #### C BC, ADIFF, ANEU, BMP, ALB, GFR, ABOG, ANSG #### [address] [address] Urea nitrogen [Mass/Vol] 38 mg/dL High 7-18 [facility] ([place]) Comment on above: Performed By: #### C BC, ADIFF, ANEU, BMP, ALB, GFR, ABOG, ANSG #### [address] [address] CBCon 05-15-2021 Erythrocyte distribution width (RBC) [Ratio] 14.6 % High 11.5-14.5 [facility] ([place]) Comment on above: Order Comment: Pre-A dmission Testing Performed By: #### C BC, ADIFF, ANEU, BMP, ALB, GFR, ABOG, ANSG #### [address] [address] Hematocrit (Bld) [Volume fraction] 32.2 % Low 37.0-47.0 [facility] ([place]) Comment on above: Order Comment: Pre-A dmission Testing Performed By: #### C BC, ADIFF, ANEU, BMP, ALB, GFR, ABOG, ANSG #### [address] [address] Hgb 10.7 G/dL Low 12.0-16.0 [facility] ([place]) Comment on above: Order Comment: Pre-A dmission Testing Performed By: #### C BC, ADIFF, ANEU, BMP, ALB, GFR, ABOG, ANSG #### [address] [address] MCH (RBC) [Entitic mass] 29.9 pg Normal 27.0-31.2 [facility] ([place]) Comment on above: Order Comment: Pre-A dmission Testing Performed By: #### C BC, ADIFF, ANEU, BMP, ALB, GFR, ABOG, ANSG #### [address] [address] MCHC 33.1 G/dL Normal 33.0-37.0 [facility] ([place]) Comment on above: Order Comment: Pre-A dmission Testing Performed By: #### C BC, ADIFF, ANEU, BMP, ALB, GFR, ABOG, ANSG #### [address] [address] MCV (RBC) [Entitic vol] 90.3 fL Normal 80.0-94.0 A [facility] ([place]) Comment on above: Order Comment: Pre-A dmission Testing Performed By: #### C BC, ADIFF, ANEU, BMP, ALB, GFR, ABOG, ANSG #### [address] [address] Platelet 406 10 3/mcL High 130-400 [facility] ([place]) Comment on above: Order Comment: Pre-A dmission Testing Performed By: #### C BC, ADIFF, ANEU, BMP, ALB, GFR, ABOG, ANSG #### [address] [address] Platelet mean volume (Bld) [Entitic vol] 8.9 fL Normal 7.4-10.4 [facility] ([place]) Comment on above: Order Comment: Pre-A dmission Testing Performed By: #### C BC, ADIFF, ANEU, BMP, ALB, GFR, ABOG, ANSG #### [address] [address] RBC 3.57 10 6/mcL Low 4.20-5.40 [facility] ([place]) Comment on above: Order Comment: Pre-A dmission Testing Performed By: #### C BC, ADIFF, ANEU, BMP, ALB, GFR, ABOG, ANSG #### [address] [address] WBC 7.80 10 3/mcL Normal 4.60-10.80 [facility] ([place]) Comment on above: Order Comment: Pre-A dmission Testing Performed By: #### C BC, ADIFF, ANEU, BMP, ALB, GFR, ABOG, ANSG #### [address] [address] Gel ABOon 05-15-2021 ABO/Rh Interp Positive Invalid Interpretation Code [facility] ([place]) Comment on above: Performed By: #### C BC, ADIFF, ANEU, BMP, ALB, GFR, ABOG, ANSG #### [address] [address] Gel ABSon 05-15-2021 Antibody Screen Gel Negative Normal [facility] ([place]) Comment on above: Performed By: #### C BC, ADIFF, ANEU, BMP, ALB, GFR, ABOG, ANSG #### [address] [address] PBNPon 05-15-2021 Natriuretic peptide B (Bld) [Mass/Vol] 410 pg/mL High 0-125 [facility] ([place]) Comment on above: Result Comment: NT-p roBNP results of less than 300 pg/mL effectively rules out acute congestive heart failure with 99% negative predictive value. Performed By: #### P BNP, APTT, PRO #### [address] [address] PROon 05-15-2021 INR Coag (PPP) [Relative time] 1.8 {INR} High 0.9-1.2 [facility] ([place]) Comment on above: Result Comment: Yaniv dard Dose 2.0 - 3.0 High Dose 2.5 - 3.5 The recommended therapeutic range for oral anticoagulant therapy is: LOW RISK: Prophylaxis of venous thrombosis INR: 2.0 - 3.0 Treatment of pulmonary embolism 2.0 - 3.0 Prevention of systemic embolism 2.0 - 3.0 HIGH RISK: Mechanical prosthetic valves 2.5 - 3.5 Performed By: #### C BC, ADIFF, ANEU, BMP, ALB, GFR, ABOG, ANSG #### [facility] [address] [place], [place] [address] PT Coag (PPP) [Time] 20.6 s High 9.7-14.3 [facility] ([place]) Comment on above: Performed By: #### C BC, ADIFF, ANEU, BMP, ALB, GFR, ABOG, ANSG #### [place] [place], [place] [address] Bacteria identified Cx Nom ( U)on 05-12-2021 Culture, urine Mixed Gram Pos & Gra m Neg Org [facility] Work Phone: Basophil percentageon 2021 Basophil percentage 0-5 SEEN /hpf 0-5 [facility] Work Phone: Basophil percentage Not Reportable [facility] Work Phone: Basophil percentage 110 mg/dL 74-106 [facility] Work Phone: Basophil percentage 8.0 g/dL 6.4-8.2 [facility] Work Phone: Basophil percentage 0.30 mg/dL 0.20-1.00 [facility] Work Phone: Basophil percentage 142 mmol/L 136-145 [facility] Work Phone: [phone] Basophil percentage 3.5 mmol/L 3.5-5.1 [facility] Work Phone: Basophil percentage 110 mmol/L 98-107 [facility] Work Phone: Basophil percentage 1.2 mmol/L 0.4-2.0 [facility] Work Phone: Basophils (Bld) [#/Vol] 10.5 10*3/uL 4.4-11.0 [facility] Work Phone: Bilirubin [Mass/Vol] 0.30 mg/dL 0.20-1.00 [facility] Work Phone: Comment on above: For patients on eltr ombopag therapy, use of Dimension [place] TBIL is not recommended. Chloride [Moles/Vol] 110 mmol/L 98-107 [facility] Work Phone: Glucose [Mass/Vol] 110 mg/dL 74-106 [facility] Work Phone: Comment on above: Fasting Glucose resu lt from 100 to 125 mg/dL suggests IMPAIRED HOMEOSTASIS per A.D.A. criteria. Lactate [Moles/Vol] 1.2 mmol/L 0.4-2.0 [facility] Work Phone: Potassium [Moles/Vol] 3.5 mmol/L 3.5-5.1 [facility] Work Phone: Protein [Mass/Vol] 8.0 g/dL 6.4-8.2 [facility] Work Phone: Sodium [Moles/Vol] 142 mmol/L 136-145 [facility] Work Phone: WBC (Bld) [#/Vol] 10.5 10*3/uL 4.4-11.0 [facility] Work Phone: Bilirubin Test strip Ql (U)o n 05-12-2021 Bilirubin Ql (U) Negative Negative [facility] Work Phone: Blood erythrocytes count (nu mber/volume)on 05-12-2021 RBC (Bld) [#/Vol] 3.57 10*6/uL 4.2-5.4 [facility] Work Phone: Blood hemoglobin measurement (mass/volume)on 05-12-2021 Hemoglobin (Bld) [Mass/Vol] 11.1 g/dL 12.0-15.0 [facility] Work Phone: Blood platelet mean volumeon 05-12-2021 Platelet mean volume (Bld) [Entitic vol] 10.5 fL 6.2-12.0 [facility] Work Phone: Culture, urineon 05-12-2021 Bacteria identified Cx Nom (U) Mixed Gram Pos & Gram Neg Org [facility] Work Phone: Determination of erythrocyte mean corpuscular volume (MCV)on 05-12-2021 MCV (RBC) [Entitic vol] 97.5 fL 81-99 [facility] Work Phone: Hematocrit Auto (Bld) [Volum e fraction]on 05-12-2021 Hematocrit (Bld) [Volume fraction] 34.8 % 37-47 [facility] Work Phone: INR in Blood by Coagulation assayon 05-12-2021 INR Coag (Bld) [Relative time] 1.5 {INR} [facility] Work Phone: Ketones Test strip Ql (U)on 05-12-2021 Ketones Ql (U) Negative Negative [facility] Work Phone: Laboratory - Chemistry and C hemistry - challengeon 05-12-2021 ALP [Catalytic activity/Vol] 122 U/L 45-117 [facility] Work Phone: ALT [Catalytic activity/Vol] 17 U/L 13-56 [facility] Work Phone: CO2 [Moles/Vol] 23.0 mmol/L 21.0-32.0 [facility] Work Phone: Globulin (S) [Mass/Vol] 4.8 g/dL 2.2-4.2 [facility] Work Phone: Urea nitrogen/Creatinine [Mass ratio] 27.4 mg/mg 10-20 [facility] Work Phone: Laboratory - Coagulationon 0 05-12-2021 aPTT Coag (Bld) [Time] 39.0 s 24.1-36.2 [facility] Work Phone: PT Coag (PPP) [Time] 17.8 s 11.7-14.9 [facility] Work Phone: Laboratory - Hematology and Cell countson 05-12-2021 Erythrocyte distribution width (RBC) [Entitic vol] 50.6 fL 35.1-43.9 [facility] Work Phone: Erythrocyte distribution width (RBC) [Ratio] 14.1 % 11.6-14.6 [facility] Work Phone: MCH (RBC) [Entitic mass] 31.1 pg 27.0-32.0 [facility] Work Phone: Nucleated RBC/100 WBC (Bld) [Ratio] 0 % 0-5 [facility] Work Phone: Laboratory - Microbiology an d Antimicrobial susceptibilityon 05-12-2021 Bacteria identified Cx Nom (Bld) No growth in 5 days. [facility] Work Phone: MCHC Auto (RBC) [Mass/Vol]on 05-12-2021 MCHC (RBC) [Mass/Vol] 31.9 g/dL 32-36 [facility] Work Phone: Mucus LM Ql (Urine sed)on Mucus Ql (Urine sed) 0 SEEN /hpf [facility] Work Phone: Nitrite Test strip Ql (U)on 05-12-2021 Nitrite Ql (U) Negative Negative [facility] Work Phone: No Panel Informationon 05-12 Respiratory Panel (PCR) [facility] Work Phone: No growth in 5 days. [facility] Work Phone: Estimated Creatinine Clearance Calc 28.22 ml/min [facility] Work Phone: Estimated GFR (MDRD) Amer 46 mL/min >60 [facility] Work Phone: Comment on above: GFR Calc Estimated GFR (MDRD) Non-Af Amer 38 mL/min >60 [facility] Work Phone: Comment on above: Non- GFR Calc Troponin I High Sensitivity 4 pg/mL 3.0-54.0 [facility] Work Phone: Comment on above: Please Note: [place] t Units and Gender Specific Reference Ranges. For more information see Policy Stat Procedure [place] High Sensitivity Troponin (TNIH) and attachments. 31.1 pg 27.0-32.0 [facility] Work Phone: [phone] 14.1 % 11.6-14.6 [facility] Work Phone: 50.6 fl 35.1-43.9 [facility] Work Phone: 0 % 0-5 [facility] Work Phone: 17.8 SECONDS 11.7-14.9 [facility] Work Phone: [phone] 39.0 Seconds 24.1-36.2 [facility] Work Phone: 38 mL/min >60 [facility] Work Phone: [phone] 46 mL/min >60 [facility] Work Phone: [phone] 28.22 ml/min [facility] Work Phone: 27.4 RATIO 10-20 [facility] Work Phone: [phone] 4.8 g/dL 2.2-4.2 [facility] Work Phone: [phone] 4 pg/mL 3.0-54.0 [facility] Work Phone: [phone] 122 U/L 45-117 [facility] Work Phone: 17 U/L 13-56 [facility] Work Phone: [phone] 23.0 mmol/L 21.0-32.0 [facility] Work Phone: [phone] Platelets bldon 05-12-2021 Platelets (Bld) [#/Vol] 409 10*3/uL 150-450 [facility] Work Phone: [phone] Protein Test strip Ql (U)on 05-12-2021 Protein Ql (U) Negative Negative [facility] Work Phone: Serum or plasma albumin nga urement (mass/volume)on 05-12-2021 Albumin [Mass/Vol] 3.2 g/dL 3.2-5.0 [facility] Work Phone: Serum or plasma albumin/glob ulin mass ratioon 05-12-2021 Albumin/Globulin [Mass ratio] 0.7 {ratio} 0.9-2.4 [facility] Work Phone: Serum or plasma calcium nga urement (mass/volume)on 05-12-2021 Calcium [Mass/Vol] 9.7 mg/dL 8.5-10.1 [facility] Work Phone: Serum or plasma creatinine m easurement (mass/volume)on 05-12-2021 Creatinine [Mass/Vol] 1.46 mg/dL 0.55-1.02 [facility] Work Phone: Comment on above: The validity of the calculated GFR & GFRAA in patients over 70 years has not been determined. Clinical correlation is essential. Serum or plasma urea nitroge n measurement (mass/volume)on 05-12-2021 Urea nitrogen [Mass/Vol] 40 mg/dL 7-18 [facility] Work Phone: Squamous epithelial cells de tection in urine sediment by light microscopyon 05-12-2021 Epithelial cells.squamous LM Ql (Urine sed) 0 SEEN /hpf 5-10 [facility] Work Phone: Thin prep Papanicolaou smear with manual screeningon 05-12-2021 Thin prep Papanicolaou smear with manual screening 11 U/L 15-37 [facility] Work Phone: Thin prep Papanicolaou smear with manual screening 9 5-15 [facility] Work Phone: Urine blood detectionon 04-15 RBC Ql (U) Negative Negative [facility] Work Phone: RBC Ql (U) 0 SEEN /hpf 0-5 [facility] Work Phone: Urine clarityon 05-12-2021 Clarity (U) Clear Clear [facility] Work Phone: Urine color determinationon 05-12-2021 Color (U) Yellow Yellow [facility] Work Phone: Urine glucose detectionon Glucose Ql (U) Normal mg/dl Normal [facility] Work Phone: Urine leukocyte esterase det ection by dipstickon 05-12-2021 Leukocyte esterase Test strip Ql (U) 100 /ul Negative [facility] Work Phone: Urine pHon 05-12-2021 pH (U) 5.0 [pH] 5.0 - 8.0 [facility] Work Phone: Urine sediment bacteria coun t by microscopy (number/high power field)on 05-12-2021 Bacteria LM.HPF (Urine sed) [#/Area] 0 /[HPF] None Seen [facility] Work Phone: Urine specific gravity measu rementon 05-12-2021 Specific gravity (U) [Rel density] 1.015 1.002-1.03 0 [facility] Work Phone: Urobilinogen Auto test strip Ql (U)on 05-12-2021 Urobilinogen Ql (U) Normal mg/dl Normal [facility] Work Phone: Absolute lymphocyte counton 04-09-2021 Lymphocytes Auto (Unsp spec) [#/Vol] 1.37 10*3/uL 0.83-4.51 [facility] Work Phone: Basophil percentageon 2021 Basophil percentage 136 mg/dL <200 [facility] Work Phone: Basophil percentage 128 mg/dL <199 [facility] Work Phone: Cholesterol [Mass/Vol] 136 mg/dL <200 [facility] Work Phone: Comment on above: <200 mg/dL Desirable 200-240 mg/dL Borderline >240 mg/dL High Risk Triglyceride [Mass/Vol] 128 mg/dL [facility] Work Phone: Comment on above: The drugs N-Acetylcy steine and Metamizole may falsely depress this assay.Serum Triglycerides Reference Interval Normal <150 mg/dL Borderline high 150 - 199 mg/dL High 200 - 499 mg/dL Very High > or = 500 mg/dL Basophil percentage 114 mg/dL 74-106 [facility] Work Phone: Basophil percentage 7.7 g/dL 6.4-8.2 [facility] Work Phone: Basophil percentage 0.50 mg/dL 0.20-1.00 [facility] Work Phone: [phone] Basophil percentage 138 mmol/L 136-145 [facility] Work Phone: Basophil percentage 4.1 mmol/L 3.5-5.1 [facility] Work Phone: Basophil percentage 105 mmol/L 98-107 [facility] Work Phone: Basophils (Bld) [#/Vol] 8.0 10*3/uL 4.4-11.0 [facility] Work Phone: Basophils (Bld) [#/Vol] 5.4 10*3/uL 2.0-7.7 [facility] Work Phone: Basophils/100 WBC (Bld) 0.4 % 0-1 [facility] Work Phone: Basophils/100 WBC (Bld) 67.3 % 47-70 [facility] Work Phone: [phone] Basophils/100 WBC (Bld) 5.2 % 0-5 [facility] Work Phone: [phone] Bilirubin [Mass/Vol] 0.50 mg/dL 0.20-1.00 [facility] Work Phone: Comment on above: For patients on eltr ombopag therapy, use of Dimension Alzada TBIL is not recommended. Chloride [Moles/Vol] 105 mmol/L 98-107 [facility] Work Phone: Eosinophils/100 WBC (Bld) 5.2 % 0-5 [facility] Work Phone: Glucose [Mass/Vol] 114 mg/dL 74-106 [facility] Work Phone: Comment on above: Fasting Glucose resu lt from 100 to 125 mg/dL suggests IMPAIRED HOMEOSTASIS per A.D.A. criteria. Neutrophils (Bld) [#/Vol] 5.4 10*3/uL 2.0-7.7 [facility] Work Phone: Neutrophils/100 WBC (Bld) 67.3 % 47-70 [facility] Work Phone: [phone] Potassium [Moles/Vol] 4.1 mmol/L 3.5-5.1 [facility] Work Phone: Protein [Mass/Vol] 7.7 g/dL 6.4-8.2 [facility] Work Phone: Sodium [Moles/Vol] 138 mmol/L 136-145 [facility] Work Phone: WBC (Bld) [#/Vol] 8.0 10*3/uL 4.4-11.0 [facility] Work Phone: Blood erythrocytes count (nu mber/volume)on 04-09-2021 RBC (Bld) [#/Vol] 3.80 10*6/uL 4.2-5.4 [facility] Work Phone: Blood hemoglobin measurement (mass/volume)on 04-09-2021 Hemoglobin (Bld) [Mass/Vol] 11.2 g/dL 12.0-15.0 [facility] Work Phone: Blood lymphocytes/100 leukoc yteson 04-09-2021 Lymphocytes/100 WBC (Bld) 17.1 % 19-41 [facility] Work Phone: [phone] Blood monocytes/100 leukocyt eson 04-09-2021 Monocytes/100 WBC (Bld) 9.4 % 0-10 [facility] Work Phone: Blood platelet mean volumeon 04-09-2021 Platelet mean volume (Bld) [Entitic vol] 10.4 fL 6.2-12.0 [facility] Work Phone: Determination of erythrocyte mean corpuscular volume (MCV)on 04-09-2021 MCV (RBC) [Entitic vol] 95.8 fL 81-99 [facility] Work Phone: Direct bilirubinon 2 Bilirubin.direct [Mass/Vol] 0.10 mg/dL 0.00-0.30 [facility] Work Phone: Hematocrit Auto (Bld) [Volum e fraction]on 04-09-2021 Hematocrit (Bld) [Volume fraction] 36.4 % 37-47 [facility] Work Phone: INR in Blood by Coagulation assayon 04-09-2021 INR Coag (Bld) [Relative time] 1.5 {INR} [facility] Work Phone: Laboratory - Chemistry and C hemistry - challengeon 04-09-2021 Free T4 [Mass/Vol] 1.25 ng/dL 0.76-1.46 [facility] Work Phone: ALP [Catalytic activity/Vol] 127 U/L 45-117 [facility] Work Phone: ALT [Catalytic activity/Vol] 17 U/L 13-56 [facility] Work Phone: CO2 [Moles/Vol] 28.0 mmol/L 21.0-32.0 [facility] Work Phone: Globulin (S) [Mass/Vol] 4.6 g/dL 2.2-4.2 [facility] Work Phone: Magnesium [Mass/Vol] 2.0 mg/dL 1.6-2.6 [facility] Work Phone: Urea nitrogen/Creatinine [Mass ratio] 22.4 mg/mg 10-20 [facility] Work Phone: Laboratory - Coagulationon 0 04-09-2021 aPTT Coag (Bld) [Time] 27.5 s 24.1-36.2 [facility] Work Phone: PT Coag (PPP) [Time] 17.1 s 11.7-14.9 os [facility] Work Phone: Laboratory - Hematology and Cell countson 04-09-2021 Erythrocyte distribution width (RBC) [Entitic vol] 50.4 fL 35.1-43.9 [facility] Work Phone: Erythrocyte distribution width (RBC) [Ratio] 14.4 % 11.6-14.6 [facility] Work Phone: Immature granulocytes/100 WBC (Bld) 0.600 % 0.0-0.9 [facility] Work Phone: Comment on above: IG% - Immature Granu locytes (promyelocytes, myelocytes and metamyelocytes) > 1% indicates that a LEFT SHIFT is Present. MCH (RBC) [Entitic mass] 29.5 pg 27.0-32.0 [facility] Work Phone: Nucleated RBC/100 WBC (Bld) [Ratio] 0 % 0-5 [facility] Work Phone: MCHC Auto (RBC) [Mass/Vol]on 04-09-2021 MCHC (RBC) [Mass/Vol] 30.8 g/dL 32-36 [facility] Work Phone: No Panel Informationon 04-09 1.25 ng/dL 0.76-1.46 [facility] Work Phone: Estimated GFR (MDRD) Amer 38 mL/min >60 [facility] Work Phone: Comment on above: GFR Calc Estimated GFR (MDRD) Non-Af Amer 31 mL/min >60 [facility] Work Phone: Comment on above: Non- GFR Calc Thyroid Stimulating Hormone (TSH) 3.67 uIU/mL 0.358-3.74 [facility] Work Phone: 29.5 pg 27.0-32.0 [facility] Work Phone: 14.4 % 11.6-14.6 [facility] Work Phone: 50.4 fl 35.1-43.9 [facility] Work Phone: [phone] 0.600 % 0.0-0.9 [facility] Work Phone: [phone] 0 % 0-5 [facility] Work Phone: 17.1 SECONDS 11.7-14.9 [facility] Work Phone: [phone] 27.5 Seconds 24.1-36.2 [facility] Work Phone: [phone] 31 mL/min >60 [facility] Work Phone: [phone] 38 mL/min >60 [facility] Work Phone: 22.4 RATIO 10-20 [facility] Work Phone: [phone] 4.6 g/dL 2.2-4.2 [facility] Work Phone: [phone] 127 U/L 45-117 [facility] Work Phone: [phone] 17 U/L 13-56 [facility] Work Phone: [phone] 2.0 mg/dL 1.6-2.6 [facility] Work Phone: [phone] 28.0 mmol/L 21.0-32.0 [facility] Work Phone: 3.67 uIU/mL 0.358-3.74 [facility] Work Phone: [phone] Nasal Screen MRSA/MSSA Wo [facility] Work Phone: [phone] Platelets bldon 04-09-2021 Platelets (Bld) [#/Vol] 312 10*3/uL 150-450 [facility] Work Phone: [phone] Serum or plasma albumin nga urement (mass/volume)on 04-09-2021 Albumin [Mass/Vol] 3.1 g/dL 3.2-5.0 [facility] Work Phone: Serum or plasma calcium nga urement (mass/volume)on 04-09-2021 Calcium [Mass/Vol] 9.5 mg/dL 8.5-10.1 [facility] Work Phone: Serum or plasma cholesterol in HDL measurement (mass/volume)on 04-09-2021 Cholesterol in HDL [Mass/Vol] 55 mg/dL >40 [facility] Work Phone: Comment on above: The drugs N-Acetylcy steine and Metamizole may falsely depress this assay. Reference Range HDL <40 mg/dL Low HDL Cholesterol HDL >or= 60 mg/dL High HDL Cholesterol Serum or plasma cholesterol in VLDL measurement (mass/volume)on 04-09-2021 Cholesterol in VLDL [Mass/Vol] 26 mg/dL 5-40 [facility] Work Phone: Serum or plasma cortisol molly surement (mass/volume)on 04-09-2021 Cortisol [Mass/Vol] 14.00 ug/dL 3.44-22.45 [facility] Work Phone: Comment on above: Adult (AM) 5.27 - 22 .45 ug/dL Adult (PM) 3.44 - 16.76 ug/dLPlease note revised CORTISOL reference range effective 2019. Serum or plasma creatinine m easurement (mass/volume)on 04-09-2021 Creatinine [Mass/Vol] 1.74 mg/dL 0.55-1.02 [facility] Work Phone: Comment on above: The validity of the calculated GFR & GFRAA in patients over 70 years has not been determined. Clinical correlation is essential. Serum or plasma low density lipoprotein (LDL) cholesterol measurement (mass/volume)on 04-09-2021 Cholesterol in LDL [Mass/Vol] 55 mg/dL 0-130 [facility] Work Phone: Serum or plasma urea nitroge n measurement (mass/volume)on 04-09-2021 Urea nitrogen [Mass/Vol] 39 mg/dL 7-18 [facility] Work Phone: Thin prep Papanicolaou smear with manual screeningon 04-09-2021 Thin prep Papanicolaou smear with manual screening 10 U/L 15-37 [facility] Work Phone: Thin prep Papanicolaou smear with manual screening 5 5-15 [facility] Work Phone: Whole blood hemoglobin A1c/t otal hemoglobin ratio (mass fraction)on 04-09-2021 HbA1c (Bld) [Mass fraction] 6.2 % 3.8-5.6 [facility] Work Phone: Comment on above: Normal < 5.7 % Predi abetic 5.7 - 6.4 % Diabetic >or= 6.5 % Please note range changes. Basophil percentageon 2021 Basophil percentage 97 mg/dL 74-106 [facility] Work Phone: Basophil percentage 139 mmol/L 136-145 [facility] Work Phone: Basophil percentage 4.2 mmol/L 3.5-5.1 [facility] Work Phone: Basophil percentage 106 mmol/L 98-107 [facility] Work Phone: Chloride [Moles/Vol] 106 mmol/L 98-107 [facility] Work Phone: Glucose [Mass/Vol] 97 mg/dL 74-106 [facility] Work Phone: Potassium [Moles/Vol] 4.2 mmol/L 3.5-5.1 [facility] Work Phone: Sodium [Moles/Vol] 139 mmol/L 136-145 [facility] Work Phone: Laboratory - Chemistry and C hemistry - challengeon 03-25-2021 CO2 [Moles/Vol] 25.0 mmol/L 21.0-32.0 [facility] Work Phone: Natriuretic peptide B (Bld) [Mass/Vol] 36.7 pg/mL 0-100 [facility] Work Phone: Urea nitrogen/Creatinine [Mass ratio] 17.5 mg/mg 10-20 [facility] Work Phone: No Panel Informationon 03-25 Estimated GFR (MDRD) Amer 37 mL/min >60 [facility] Work Phone: Comment on above: GFR Calc Estimated GFR (MDRD) Non-Af Amer 30 mL/min >60 [facility] Work Phone: Comment on above: Non- GFR Calc 30 mL/min >60 [facility] Work Phone: 37 mL/min >60 [facility] Work Phone: 17.5 RATIO 10-20 [facility] Work Phone: 25.0 mmol/L 21.0-32.0 [facility] Work Phone: 36.7 pg/mL 0-100 [facility] Work Phone: Serum or plasma calcium nga urement (mass/volume)on 03-25-2021 Calcium [Mass/Vol] 9.5 mg/dL 8.5-10.1 [facility] Work Phone: Serum or plasma creatinine m easurement (mass/volume)on 03-25-2021 Creatinine [Mass/Vol] 1.77 mg/dL 0.55-1.02 [facility] Work Phone: Comment on above: The validity of the calculated GFR & GFRAA in patients over 70 years has not been determined. Clinical correlation is essential. Serum or plasma urea nitroge n measurement (mass/volume)on 03-25-2021 Urea nitrogen [Mass/Vol] 31 mg/dL 7-18 [facility] Work Phone: Thin prep Papanicolaou smear with manual screeningon 03-25-2021 Thin prep Papanicolaou smear with manual screening 8 5-15 [facility] Work Phone: Laboratory - Microbiology an d Antimicrobial susceptibilityon 02-11-2021 SARS-CoV-2 (COVID-19) RNA SUSHMA+probe Ql (Unsp spec) Not detected Not Detect [facility] Work Phone: Comment on above: Normal Reference Ran ge: Not DetectedMethod:(RT-PCR) real-time reverse transcriptase PCRLuminex [place] Instrument*The Food and Drug Administration (FDA) has issued an Emergency Use Authorization (EAU) for the [place] SARS-CoV-2 Assay for the rapid detection of the virus that causes COVID-19. This test has been validated, but the FDAs independent review of this validation is pending.*Negative results do not preclude infection and should not be used as the sole basis for treatment or patient management. Optimum specimen types and timing for peak viral levels during infections caused by SARS-CoV-2 have not been determined. Collection of multiple specimens from the same patient may be necessary to detect the virus. The possibility of a false negative result should be considered if the patient has clinical presentation or has had recent exposure. Basophil percentageon 2020 Chloride [Moles/Vol] 107 mmol/L 98-107 [facility] Work Phone: Glucose [Mass/Vol] 104 mg/dL 74-106 [facility] Work Phone: Comment on above: Fasting Glucose resu lt from 100 to 125 mg/dL suggests IMPAIRED HOMEOSTASIS per A.D.A. criteria.Please note revised GLUCOSE reference range effective 2017. Potassium [Moles/Vol] 3.7 mmol/L 3.5-5.1 [facility] Work Phone: Sodium [Moles/Vol] 142 mmol/L 136-145 [facility] Work Phone: Laboratory - Chemistry and C hemistry - challengeon 02-09-2021 CO2 [Moles/Vol] 28.0 mmol/L 21.0-32.0 [facility] Work Phone: Urea nitrogen/Creatinine [Mass ratio] 18.2 mg/mg 10-20 [facility] Work Phone: No Panel Informationon 02-09 Estimated GFR (MDRD) Amer 39 mL/min >60 [facility] Work Phone: Comment on above: GFR Calc Estimated GFR (MDRD) Non-Af Amer 32 mL/min >60 [facility] Work Phone: Comment on above: Non- GFR Calc Serum or plasma calcium nga urement (mass/volume)on 02-09-2021 Calcium [Mass/Vol] 9.1 mg/dL 8.5-10.1 [facility] Work Phone: Serum or plasma creatinine m easurement (mass/volume)on 02-09-2021 Creatinine [Mass/Vol] 1.70 mg/dL 0.55-1.02 [facility] Work Phone: Comment on above: The validity of the calculated GFR & GFRAA in patients over 70 years has not been determined. Clinical correlation is essential. Serum or plasma urea nitroge n measurement (mass/volume)on 02-09-2021 Urea nitrogen [Mass/Vol] 31 mg/dL 7-18 [facility] Work Phone: Thin prep Papanicolaou smear with manual screeningon 02-09-2021 Thin prep Papanicolaou smear with manual screening 7 5-15 [facility] Work Phone: Bilirubin Test strip Ql (U)o n 01-29-2021 Bilirubin Ql (U) 1 mg/dL Negative [facility] Work Phone: Comment on above: COLOR OF URINE MAY A FFECT DIPSTICK RESULTS. Culture, urineon 01-29-2021 Bacteria identified Cx Nom (U) Klebsiella pneumoniae sp pneum [facility] Work Phone: Ketones Test strip Ql (U)on 01-29-2021 Ketones Ql (U) 5 mg/dl Negative [facility] Work Phone: Nitrite Test strip Ql (U)on 01-29-2021 Nitrite Ql (U) Positive Negative [facility] Work Phone: Protein Test strip Ql (U)on 01-29-2021 Protein Ql (U) 30 mg/dl Negative [facility] Work Phone: Urine blood detectionon 01-14 RBC Ql (U) 50 /ul Negative [facility] Work Phone: Urine clarityon 01-29-2021 Clarity (U) Cloudy Clear [facility] Work Phone: Urine color determinationon 01-29-2021 Color (U) Yellow Yellow [facility] Work Phone: Urine glucose detectionon Glucose Ql (U) Normal mg/dl Normal [facility] Work Phone: Urine leukocyte esterase det ection by dipstickon 01-29-2021 Leukocyte esterase Test strip Ql (U) 500 /ul Negative [facility] Work Phone: Urine pHon 01-29-2021 pH (U) 5.0 [pH] [facility] Work Phone: Urine specific gravity measu rementon 01-29-2021 Specific gravity (U) [Rel density] 1.015 [facility] Work Phone: Urobilinogen Auto test strip Ql (U)on 01-29-2021 Urobilinogen Ql (U) 1 mg/dl Normal [facility] Work Phone: Basophil percentageon 2020 Chloride [Moles/Vol] 105 mmol/L 98-107 [facility] Work Phone: Glucose [Mass/Vol] 95 mg/dL 74-106 [facility] Work Phone: Comment on above: Please note revised GLUCOSE reference range effective 2017. Potassium [Moles/Vol] 4.1 mmol/L 3.5-5.1 [facility] Work Phone: Sodium [Moles/Vol] 139 mmol/L 136-145 [facility] Work Phone: Laboratory - Chemistry and C hemistry - challengeon 01-26-2021 CO2 [Moles/Vol] 26.0 mmol/L 21.0-32.0 [facility] Work Phone: Urea nitrogen/Creatinine [Mass ratio] 16.0 mg/mg 10-20 [facility] Work Phone: No Panel Informationon 01-26 Estimated GFR (MDRD) Amer 41 mL/min >60 [facility] Work Phone: Comment on above: GFR Calc Estimated GFR (MDRD) Non-Af Amer 33 mL/min >60 [facility] Work Phone: Comment on above: Non- GFR Calc Serum or plasma calcium nga urement (mass/volume)on 01-26-2021 Calcium [Mass/Vol] 9.2 mg/dL 8.5-10.1 [facility] Work Phone: Serum or plasma creatinine m easurement (mass/volume)on 01-26-2021 Creatinine [Mass/Vol] 1.63 mg/dL 0.55-1.02 [facility] Work Phone: Comment on above: The validity of the calculated GFR & GFRAA in patients over 70 years has not been determined. Clinical correlation is essential. Serum or plasma urea nitroge n measurement (mass/volume)on 01-26-2021 Urea nitrogen [Mass/Vol] 26 mg/dL 7-18 [facility] Work Phone: Thin prep Papanicolaou smear with manual screeningon 01-26-2021 Thin prep Papanicolaou smear with manual screening 8 5-15 [facility] Work Phone: HISTOPLASMA AG BLOODon 02-01 HISTOPLASMA AG INTERP.BLD. Negative Normal [facility] Comment on above: Result Comment: REFE RENCE INTERVAL: NONE DETECTED Results reported as NG/ML in 0.4-19.0 ng/mL range Results above the limit of detection but below 0.4 ng/mL are reported as Positive, Below the Limit of Quantification Results above 19 ng/mL are reported as Positive, Above the Limit of QuantificationTest performed at [facility],[employer] [address], [address] [place] [address] Performed By: #### C OAGS ####[facility] [place] [address] HISTOPLASMA AG,BLD NOT DETECTED Normal [facility] Comment on above: Performed By: #### C OAGS ####[facility] [place] [address] ANTIGLOMERULAR BM ABon 01-31 ANTIGLOMERULAR BM AB 5 units Normal 0-20 [facility] Comment on above: Result Comment: Nega tive 0 - 20 Weak Positive 21 - 30 Moderate to Strong Positive >30 Performed By: #### C OAGS ####[facility] [place] [address] Discharge Summaryon 01-29-20 17 Discharge Summary Send Summary:Dischar ge Summary Providers:Provider Role Provider Name? Referring Ernie Yusuf? Attending Ernie Yusuf? 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,Procedures: Date: 24-Jan-2017 16:40:00 Procedure Name: fluoroscopic guided lumbar punctureBronchoscopyCondit ion at Discharge: FairDisposition at Discharge: Jail FacilityVital Signs: T P R BP [id number] 36.3 83 20 128/76 93%Date/Time 01/28 7:38 01/28 7:38 01/28 7:38 01/28 7:38 157:38Range (36.3C - 36.7C ) (76 - 83 ) (13 - 20 ) (106 - 129 )/(61 - 76 ) (93%- 98% ) As of 28-Jan-2017 08:00:00, patient is on 2 L/min of oxygen via nasal cannula.Physical Exam:Constitutional: NAD, resting comfortably in bedHead/Neck: neck supple, atraumaticRespiratory/Thor ax: Coarse breath sounds bilaterallyCardiovascular: RRRGastrointestinal: soft, nontender, +BSNeurological: Mental Status: AOx3, language intact CN: EOMI, PERRL, tongue midline, no apparent facial droop Motor: 4/5 strength in BUE, RLE 4-/5, LLE 4/5 Sensory: SILTReflexes: DTR 2/4 throughoutPsychological: Appropriate mood and behaviorSkin: warm and dryHospital Course:Per HPI:Ms Stark is a 62 year old woman with h/o asthma[facility] of progressiveUE and LE weakness of unclear etiology with new onset delusions and paranoidbehavior.Chart review and History from :October 2016- patient developed shortness of breath with a cough and was[facility]. She was thought to have asthmaexacerbation; and as per the she was given one dose of IV solumedroland was discharged home on a medrol taper but she returned within the next fewdays because her shortness of breath persisted; as per the , she wasgiven more steroids and sent home but this time, steroids weren't tapered offand she continued to take them over the next 2 weeks.November 2016- she went back to [facility] because of persistentshortness of breath; unclear what was prescribed this time.December 15, 2016- patient taken to [facility] for persistent shortnessof breath (as per the ). By this time, she hadn't complained of anyweakness and hadn't developed any delusions); as per the , [facility] and was evaluated and treated extensivelyand had antibiotic therapy as well (Sputum Cx grew E coli and MRSA [place] the hospitalization was complicated by Afib for whichshe underwent DCCV and was started on Apixaban afterward. mentionedthat about 5 days before discharge, she started developing weakness and washaving difficulty walking, also developed uncontrolled hyperglycemia with thesteroids; she was eventually discharged to a rehab facility in [place] andapparently was doing well and was regaining strength (she was still onprednisone 5mg at this time)January 11 2017- patient was taken to ER from the rehab facility because ofworsening shortness of breath; as per the [facility] admissionnote, patient had been on IV fluids and CXR showed pulmonary congestions andthat was thought to be the reason for her dyspnea. As per the note, they didn'ttreat her with steroids because of prior concerns about steroid inducedmyopathy, patient was transiently put on BiPAP and did well with it. Patient'slabs on admission showedH/H- 9.0/27.9WBC- 6.2Plts- 134BUN/Cr- 19/0.91Na- 134K- 4.0CK- 32Patient was admitted to ICU and was treated with vancomycin and zosyn for it.CXR showed- b/l interstitial infiltrates with patchy infiltrate R lungCT A/P with contrast- no acute inflammatory process seenCT Chest with contrast- diffuse airspace opacification consistent with b/lpneumoniasTagged WBC scan- increased concentration R proximal femurPatient was eventually maintained on Vancomycin and Cefepime for the recurrentpneumoniaNeurolog y was consulted on 01/17/17 for tremors and generalized weakness.Neurology note documents that the patient mentioned numbness and tingling inb/l hands and feet which started developing 2 months ago and progressed to b/lUE and LE weakness later. She also mentioned that the coarse tremors haddeveloped 2 months ao and get worse when she tries to hold onto things. GBS,transverse myelitis, myopathy were considered as possible differentials; MRIbrain, C spine and L spine, EMG/NCS and a trial of IVIG was recommended forpossible GBS.MRI brain without contrast- diffuse multiple PV white matter lesions seenMRI C spine without contrast- multi level degenerative changes seen.MRI L spine without contrast- no canal stenosis seenLP was attempted under fluoroscopy but unsuccessful.Hospital Course:On arrival to [facility], prednisone and methimazole were held. Patient hadimprovement in mental status and strength daily. LP attempted by IR, howeverunsuccessful. EMG showed chronic denervation at L4, L5, and S1 in addition toC5, C7, and C8/T1, however no evidence of peripheral polyneuropathy. Suspectedthat weakness was secondary to deconditioning from frequent hospital stays andrecurrent steroid use. Medicine consulted and recommended pulmonary consult forfrequent lung pathology. Pulm consulted and performed bronch, which showedevidence of recovery from recent pneumonia. Biopsies from benign appearing lunglesions obtained. Patient to follow up with pulmonology as outpatient forbiopsy results. Patient stable for discharge to SNF with follow up appointmentswith pulmonology, neurology, and PCP.Of note, discharged without prednisone 5mg and methimazole 5mg q8h. TSH and T4at admission were 5.79 and 1.13 respectively, and at discharge were 5.48 and7.1 respectively. Holding methimazole at discharge, with TSH and T4 levels isac collected in 1 week, and to be followed by PCP.Discharge Information:and Continuing Care:Discharge Instructions:Activity: activity as tolerated. Weight-bearing Instructions: weight-bearing as tolerated.Nutrition/Diet: regular Diet Consistency/Texture: regular / thinLabs: Lab Test(s): TSH and T4 Date To Be Drawn: 02/03/17 Call Results To: Dr. Moreno Donnelly MD - Comments: Off methimazole throughout admission. Determination ifpatient needs to be back on medication.Respiratory: Oxygen: Administer oxygen at 2 liters/min via nasal cannula tomaintain SpO2% of >88% as neededRehab Services: Occupational Therapy Orders: [facility] daily Physical Therapy Orders: Eval and Treat ([facility]) dailyInfectious Disease: MRSA: no VRE: no C. Diff: no Other Resistant Organism: no Isolation Type: noneCare Recommendation: I recommend that INPATIENT care is required at:: Skilled Estimated Stay: Convalescent stay < 30 daysDischarge Medications: Home Medication fluticasone-salmeterol 500 mcg-50 mcg inhalation powder - 1 puff(s) inhaled 2times a day melatonin 3 mg oral tablet - 1 tab(s) orally once (at bedtime) Singulair 10 mg oral tablet - 1 tab(s) orally once a day (at bedtime) Cardizem CD 360 mg/24 hours oral capsule, extended release - 1 cap(s) orallyonce a day guaiFENesin 1200 mg oral tablet, extended release - 1 tab(s) orally every 12hours acetaminophen 500 mg oral tablet - 2 tab(s) orally every 6 hours apixaban 5 mg oral tablet - 1 tab(s) orally 2 times a day Lotrimin 1% topical solution - Apply topically to affected area 2 times a day flecainide 100 mg oral tablet - 1 tab(s) orally every 12 hours buPROPion 150 mg/12 hours (SR) oral tablet, extended release - 1 tab(s) orally2 times a day Eucerin Plus topical lotion - Apply topically to affected area 2 times a day nystatin 100,000 units/g topical powder - Apply topically to affected area 2times a day pantoprazole 40 mg oral delayed release tablet - 1 tab(s) orally once a day senna 8.6 mg oral tablet - 1 tab(s) orally 2 times a day PRN Medication benzonatate 200 mg oral capsule - 1 cap(s) orally 3 times a day, As needed,Cough albuterol 2.5 mg/3 mL (0.083%) inhalation solution - inhaled every 6 hours, AsNeeded ProAir HFA 90 mcg/inh inhalation aerosol - 2 puff(s) inhaled every 4 hours, AsNeededMiraLax oral powder for reconstitution - 17 gram(s) orally once a day, AsNeededLab Results - Pending: Culture, Fungus +smear Drawn at 26-Jan-2017 13:36:00 Culture, Acid Fast Bacilli, Misc.+ smear Drawn at 26-Jan-2017 13:36:00 Glomerular Basement Membrane Antibody Drawn at 25-Jan-2017 05:32:00Histoplasma Antigen, Blood Drawn at 25-Jan-2017 05:32:00Radiology Results - Pending: NoneSignature/Cosignature/ Attestation:I personally evaluated the patient (as noted in the above attestation) [id number] Signatures:Ernie Yusuf) (Signed 28-Jan-2017 19:02) Authored: Summary Content, Ongoing Care, Signature/Cosignature/Atte station Co-Signer: Send Summary, Summary Content, Ongoing Care,Signature/Cosignature /AttestationDutch Haddad ( (Resident)) (Signed 28-Jan-2017 10:43) Authored: Send Summary, Summary Content, Ongoing Care,Signature/Cosignature /AttestationLast Updated: 28-Jan-2017 19:02 by Ernie Yusuf)References:1. Data Referenced From Consult 24-Jan-2017 08:54 PM Normal [facility] GLUCOSE-POCTon 01-28-2017 Glucose mass conc 76 mg/dL Normal 74 - 99 [facility] Comment on above: Performed By: #### C OAGS ####[facility] [place] [address] ANCAon 01-27-2017 ANCA <1:20 Normal <1:20 [facility] Comment on above: Result Comment: The ANCA IFA is <1:20; therefore, no further testing will beperformed.INTERPRETIVE INFORMATION: Anti-Neutrophil Cyto Ab, IgGNeutrophil Cytoplasmic Antibodies (C-ANCA = granular cytoplasmicstaining, P-ANCA = perinuclear staining) are found in the serum ofover 90 percent of patients with certain necrotizing systemicvasculitides, and usually in less than 5 percent of patients withcollagen vascular disease or arthritis.Performed by [facility],[address] [place] [id number] [employer], Rehan Desir MD - Lab. Director Performed By: #### C OAWICHO ####[facility] [place] [address] ANTINUCLEAR ANTIBODYon 01-27 ANTINUCLEAR ANTIBODY Negative Normal NEGATIVE [facility] Comment on above: Performed By: #### R ENAL ####[facility] [place] [address] CBCon 01-27-2017 Erythrocyte distribution width Auto Ratio (RBC) 22.4 % High 11.5 - 14.5 [facility] Comment on above: Performed By: #### C K ####[facility] [place] [address] Erythrocytes (RBC) 2.51 x10E12/L Low 4.00 - 5.20 [facility] Comment on above: Performed By: #### C K ####[facility] [place] [address] Hematocrit (HCT) 24.9 % Low 36.0 - 46.0 [facility] Comment on above: Performed By: #### C K ####[facility] [place] [address] Hemoglobin mass conc (Bld) 7.5 g/dL Low 12.0 - 16.0 [facility] Comment on above: Performed By: #### C K ####[facility] [place] [address] MCHC mass conc (RBC) 30.1 g/dL Low 32.0 - 36.0 [facility] Comment on above: Performed By: #### C K ####[facility] [place] [address] MCV 99 fL Normal 80 - 100 [facility] Comment on above: Performed By: #### C K ####[facility] [place] [address] Nucleated erythrocytes 0.7 /100 WBC Abnormal 0.0-0.0 [facility] Comment on above: Performed By: #### C K ####[facility] [place] [address] Platelets 348 10*3/uL Normal 150 - 450 [facility] Comment on above: Performed By: #### C K ####[facility] [place] [address] WBC (Leukocytes) 8.6 10*3/uL Normal 4.4 - 11.3 [facility] Comment on above: Performed By: #### C K ####[facility] [place] [address],FLUID PATH REVIEWon 01-27-2017 PATH REVIEW-FLUID H.MEYERSON Normal [facility] Comment on above: Result Comment: By h er/his signature above, the Pathologist listed as making the final interpretation certifies that she/he has personally reviewed this case. MIXED ACUTE AND CHRONIC INFLAMMATORY CELLS PRESENT. Performed By: #### R ENAL ####[facility] [place] [address] CITRULLINE ANTIBODYon 2016 CITRULLINE ANTIBODY 2 U/ML Normal [facility] Comment on above: Result Comment: THE TEST FOR ANTIBODIES SPECIFIC FOR CYCLICCITRULLINATED PEPTIDE (CCP) HAS SHOWN TO BEVALUABLE IN THE DIAGNOSIS OF RHEUMATOIDARTHRITIS. THE DIAGNOSTIC VALUE OFANTIBODIES TO CCP IN JUVENILE RHEUMATOIDARTHRITIS PATIENTS HAS NOT BEEN DETERMINED.ANTIBODIES TO CENTROMERE OR SS-A AND MYELOMAIGG MAY BE REACTIVE IN THIS ASSAY. REF VALUES NEGATIVE < 3 U/ML POSITIVE >=3 U/ML Performed By: #### R ENAL ####[facility] [place] [address] EMR ADDONon 01-27-2017 ADDON CONFIRMATION REQUEST REC'D Normal [facility] Comment on above: Performed By: #### C K ####[facility] [place] [address] GLUCOSE-POCTon 01-27-2017 Glucose mass conc 136 mg/dL High 74 - 99 [facility] Comment on above: Performed By: #### C OAGS ####[facility] [place] [address] Glucose mass conc 113 mg/dL High 74 - 99 [facility] Comment on above: Performed By: #### R ENAL ####[facility] [place] [address] Glucose mass conc 88 mg/dL Normal 74 - 99 [facility] Comment on above: Performed By: #### C K ####[facility] [place] [address] RENAL FUNCTION PANELon 01-27 Albumin 2.1 g/dL Low 3.4 - 5.0 [facility] Comment on above: Performed By: #### C K ####[facility] [place] [address] Anion gap 14 mmol/L Normal 10 - 20 [facility] Comment on above: Performed By: #### C K ####[facility] [place] [address] Bicarbonate (HCO3) 22 mmol/L Normal 21 - 32 [facility] Comment on above: Performed By: #### C K ####[facility] [place] [address] Calcium 8.4 mg/dL Low 8.6 - 10.6 [facility] Comment on above: Performed By: #### C K ####[facility] [place] [address] Chloride 112 mmol/L High 98 - 107 [facility] Comment on above: Performed By: #### C K ####[facility] [place] [address] Creatinine 0.93 mg/dL Normal 0.50 - 1.05 [facility] Comment on above: Performed By: #### C K ####[facility] [place] [address] eGFR (non-black) mL/min/{1.73_m2} Normal >60 [facility] Comment on above: Performed By: #### C K ####[facility] [place] [address] Result Comment: CALC ULATIONS OF ESTIMATED GFR ARE PERFORMED USING THE MDRD STUDY EQUATION FOR THE IDMS-TRACEABLE CREATININE METHODS. CLIN CHEM 2007;53:766-72 Glucose mass conc 80 mg/dL Normal 74 - 99 [facility] Comment on above: Performed By: #### C K ####[facility] [place] [address] Phosphate 3.6 mg/dL Normal 2.5 - 4.9 [facility] Comment on above: Result Comment: The performance characteristics of phosphorus testing in heparinized plasma have been validated by the individual laboratory site where testing is performed. Testing on heparinized plasma is not approved by the FDA; however, such approval is not necessary. Performed By: #### C K ####[facility] [place] [address] Potassium molar conc 3.6 mmol/L Normal 3.5 - 5.3 [facility] Comment on above: Performed By: #### C K ####[facility] [place] [address] Sodium 144 mmol/L Normal 136 - 145 [facility] Comment on above: Performed By: #### C K ####[facility] [place] [address] Urea nitrogen 19 mg/dL Normal 6 - 23 [facility] Comment on above: Performed By: #### C K ####[facility] [place] [address] RESPIRATORY VIRAL PANELon ADENOVIRUS RVP Not Detected Normal Not Detected [facility] Comment on above: Result Comment: Dete cts Serotypes B and E. Detection of Serotype C may belimited. If Adenovirus infection is suspected and a NotDetected result is returned the sample should be re-testedfor adenovirus using an independent method (e.g. [employer] Adenovirus Quantitative Real-time PCR test). Performed By: #### C OAGS ####[facility] [place] [address] ENTEROVIRUS RVP Not Detected Normal Not Detected [facility] Comment on above: Result Comment: Cros s-reactivity has been observed between certainRhinovirus strains and the Enterovirus assay. Performed By: #### C OAGS ####[facility] [place] [address] HUMAN BOCAVIRUS RVP Not Detected Normal Not Detected [facility] Comment on above: Performed By: #### C OAGS ####[facility] [place] [address] HUMAN CORONAVIRUS RVP Not Detected Normal Not Detected [facility] Comment on above: Result Comment: The Human Coronavirus assay detects Human [id number], OC43, NL63, and HKU1. Performed By: #### C OAGS ####[facility] [place] [address] INFLUENZA A Not Detected Normal Not Detected [facility] Comment on above: Performed By: #### C OAGS ####[facility] [place] [address] INFLUENZA A [id number] Not Detected Normal Not Detected [facility] Comment on above: Performed By: #### C OAGS ####[facility] [place] [address] INFLUENZA B Not Detected Normal Not Detected [facility] Comment on above: Performed By: #### C OAGS ####[facility] [place] [address] METAPNEUMOVIRUS Not Detected Normal Not Detected [facility] Comment on above: Performed By: #### C OAGS ####[facility] [place] [address] PARAINFLUENZA RVP Not Detected Normal Not Detected [facility] Comment on above: Performed By: #### C OAGS ####[facility] [place] [address] RHINOVIRUS Not Detected Normal Not Detected [facility] Comment on above: Result Comment: Cros s-reactivity has been observed between certainRhinovirus strains and the Enterovirus assay.Target Enriched Multiplex Polymerase Chain Reaction(TEM-PCR) allows for the detection of multiple pathogensout of a single reaction. This test was developed anditsperformance characteristics determined by [employer].It has not been cleared or approved by the U.S. Food andDrug Administration. Results should be used inconjunctionwith clinical findings, and should not form the sole basisfor a diagnosis or treatment decision.TEM-PCR is a licensed technology of [employer]. Performed At:[facility] [facility] [place] [address]ZiuarxswTerrie Peres PhD HCLD (ABB)CLIA# [id number] Performed By: #### C OAGS ####[facility] [place] [address] RSV RVP Not Detected Normal Not Detected [facility] Comment on above: Result Comment: The Respiratory Syncytial Viral assay detects both types Aand B, however it does not distinguish between the two. Performed By: #### C OAGS ####[facility] [place] [address] THYROXINEon 01-27-2017 Thyroxine (T4) 7.1 ug/dL Normal 4.5 - 11.1 [facility] Comment on above: Performed By: #### R ENAL ####[facility] [place] [address] TOTAL PROTEIN AND GLUCOSE, C SFon 01-27-2017 GLUCOSE,CSF Canceled Normal [facility] Comment on above: Order Comment: TEST TOTAL PROTEIN AND GLUCOSE, CSF WAS CANCELLED, 01/27/2017 13:07 NOSPECIMEN RECEIVED IN LAB. Performed By: #### R ENAL ####[facility] [place] [address] TOTAL PROTEIN,CSF Canceled Normal [facility] Comment on above: Order Comment: TEST TOTAL PROTEIN AND GLUCOSE, CSF WAS CANCELLED, 01/27/2017 13:07 NOSPECIMEN RECEIVED IN LAB. Performed By: #### R ENAL ####[facility] [place] [address] TSHon 01-27-2017 Thyroid stimulating hormone (TSH) 5.48 m[IU]/L High 0.44 - 3.98 [facility] Comment on above: Result Comment: TSH testing is performed using different testing methodology at [facility] than at other [facility]. Direct result comparisons should only be made within the same method.. Patients receiving more than 5 mg/day of biotin may have interference in test results. A sample should be taken no sooner than eight hours after previous dose. Contact [phone] for additional information. Performed By: #### R ENAL ####[facility] [place] [address] VZV DNA BY PCR, QUALon 01-27 VZV DNA BY PCR Canceled Normal [facility] Comment on above: Order Comment: TEST VZV DNA BY PCR, QUAL WAS CANCELLED, 01/27/2017 13:07 NO SPECIMENRECEIVED IN LAB. Performed By: #### R ENAL ####[facility] [place] [address] AFB CULTURE/, [facility] [place]B CULTURE/, [facility] [place]: LAURA STARK LOCATION: [address]#: [id number] : 53 AGE: SEX: F ORDERED BY: OLEG YUSUF: BRONCHIAL COLLECTED: 01/26/17 13:36ANTIBIOTICS AT GAY[facility].: RECEIVED : 01/26/17 13:39SITE: [facility] [place] R E S U L T S AFB SMEAR FINAL 01/27/17 11:31 ACID FAST SMEAR - NEGATIVE. AFB CULTURE/, [facility] [place] FINAL 03/16/17 10:59 NO MYCOBACTERIA ISOLATED. Normal [facility] Comment on above: Performed By: #### C OAGS ####[facility] [place] [address] ASPERGILLUS GALACTOMANNAN Dane OTTO 01-26-2017 ASPERGILLUS GALACTOMANNAN EIA,S 0.108 Normal <0.5 [facility] Comment on above: Result Comment: Refe rence Value: Index value less than 0.5.Interpretation:- Patients with an index value of greaterthan or equal to 0.5 are considered to be positive forgalactomannan antigen.-The Platelia(TM) Aspergillus EIApackage insert also recommends a new sample be collectedfrom the patient for follow-up testing.-Patients with anindex value of less than 0.5 are considered to be negativefor galactomannan antigen.-A negative result may indicatethat the patients result is below the detectable level ofthe assay.Negative results do not rule out the diagnosis of InvasiveAspergillosis.-Pursuant to the package insert, repeattesting is recommended if the result is negative, but thedisease is suspected. Due to the potential forenvironmental contamination when transferred to pour-offtubes, which can lead to false positive results, interpretpositive results from samples provided in pour-off tubeswith caution.-Results should be used in conjunction withclinical findings, and should not form the sole basis fora diagnosis or treatment decision.The Platelia Aspergillus Galactomannan EIA is a product of[employer] and is FDA approved for in vitro diagnostic use. __Performed At:[facility] [employer] [facility] DriveH[address]'s [place] [address]DmudsjjnTerrie Peres PhD HCLD (ABB)CLIA# [id number] Performed By: #### C K ####[place] [id number] [place] [address] CBCon 01-26-2017 Erythrocyte distribution width Auto Ratio (RBC) 22.5 % High 11.5 - 14.5 [facility] Comment on above: Performed By: #### E SRWS ####[facility] [place] [address] Erythrocytes (RBC) 2.51 x10E12/L Low 4.00 - 5.20 [facility] Comment on above: Performed By: #### E SRWS ####[facility] [place] [address] Hematocrit (HCT) 24.5 % Low 36.0 - 46.0 [facility] Comment on above: Performed By: #### E SRWS ####[facility] [place] [address] Hemoglobin mass conc (Bld) 7.5 g/dL Low 12.0 - 16.0 [facility] Comment on above: Performed By: #### E SRWS ####[facility] [place] [address] MCHC mass conc (RBC) 30.6 g/dL Low 32.0 - 36.0 [facility] Comment on above: Performed By: #### E SRWS ####[facility] [place] [address] MCV 98 fL Normal 80 - 100 [facility] Comment on above: Performed By: #### E SRWS ####[facility] [place] [address] Nucleated erythrocytes 1.0 /100 WBC Abnormal 0.0-0.0 [facility] Comment on above: Performed By: #### E SRWS ####[facility] [place] [address] Platelets 377 10*3/uL Normal 150 - 450 [facility] Comment on above: Performed By: #### E SRWS ####[facility] [place] [address] WBC (Leukocytes) 7.9 10*3/uL Normal 4.4 - 11.3 [facility] Comment on above: Performed By: #### E SRWS ####[facility] [place] [address] Erythrocyte distribution width Auto Ratio (RBC) Canceled Normal [facility] Comment on above: Order Comment: TEST CBC WAS CANCELLED, 01/26/2017 00:55 NO SPECIMEN RECEIVED IN LAB. Performed By: #### E SRWS ####[facility] [place] [address] Erythrocytes (RBC) Canceled Normal [facility] Comment on above: Order Comment: TEST CBC WAS CANCELLED, 01/26/2017 00:55 NO SPECIMEN RECEIVED IN LAB. Performed By: #### E SRWS ####[facility] [place] [address] Hematocrit (HCT) Canceled Normal [facility] Comment on above: Order Comment: TEST CBC WAS CANCELLED, 01/26/2017 00:55 NO SPECIMEN RECEIVED IN LAB. Performed By: #### E SRWS ####[facility] [place] [address] Hemoglobin mass conc (Bld) Canceled Normal [facility] Comment on above: Order Comment: TEST CBC WAS CANCELLED, 01/26/2017 00:55 NO SPECIMEN RECEIVED IN LAB. Performed By: #### E SRWS ####[facility] [place] [address] MCHC mass conc (RBC) Canceled Normal [facility] Comment on above: Order Comment: TEST CBC WAS CANCELLED, 01/26/2017 00:55 NO SPECIMEN RECEIVED IN LAB. Performed By: #### E SRWS ####[facility] [place] [address] MCV Canceled Normal [facility] Comment on above: Order Comment: TEST CBC WAS CANCELLED, 01/26/2017 00:55 NO SPECIMEN RECEIVED IN LAB. Performed By: #### E SRWS ####[facility] [place] [address] Nucleated erythrocytes Canceled Normal [facility] Comment on above: Order Comment: TEST CBC WAS CANCELLED, 01/26/2017 00:55 NO SPECIMEN RECEIVED IN LAB. Performed By: #### E SRWS ####[facility] [place] [address] Platelets Canceled Normal [facility] Comment on above: Order Comment: TEST CBC WAS CANCELLED, 01/26/2017 00:55 NO SPECIMEN RECEIVED IN LAB. Performed By: #### E SRWS ####[facility] [place] [address] WBC (Leukocytes) Canceled Normal [facility] Comment on above: Order Comment: TEST CBC WAS CANCELLED, 01/26/2017 00:55 NO SPECIMEN RECEIVED IN LAB. Performed By: #### E SRWS ####[facility] [place] [address] CELL COUNT AND DIFF, CSFon 1 03-29-2016 Basophils/100 WBC Auto (Bld) Canceled Normal [facility] Comment on above: Order Comment: TEST CELL COUNT AND DIFF, CSF WAS CANCELLED, 01/26/2017 00:48 NO SPECIMENRECEIVED IN LAB. Performed By: #### E SRWS ####[facility] [place] [address] BLASTS Canceled Normal [facility] Comment on above: Order Comment: TEST CELL COUNT AND DIFF, CSF WAS CANCELLED, 01/26/2017 00:48 NO SPECIMENRECEIVED IN LAB. Performed By: #### E SRWS ####[facility] [place] [address] CELLS COUNTED Canceled Normal [facility] Comment on above: Order Comment: TEST CELL COUNT AND DIFF, CSF WAS CANCELLED, 01/26/2017 00:48 NO SPECIMENRECEIVED IN LAB. Performed By: #### E SRWS ####[facility] [place] [address] CSF COMMENT Canceled Normal [facility] Comment on above: Order Comment: TEST CELL COUNT AND DIFF, CSF WAS CANCELLED, 01/26/2017 00:48 NO SPECIMENRECEIVED IN LAB. Performed By: #### E SRWS ####[facility] [place] [address] Eosinophils Canceled Normal [facility] Comment on above: Order Comment: TEST CELL COUNT AND DIFF, CSF WAS CANCELLED, 01/26/2017 00:48 NO SPECIMENRECEIVED IN LAB. Performed By: #### E SRWS ####[facility] [place] [address] Erythrocytes (RBC) Canceled Normal [facility] Comment on above: Order Comment: TEST CELL COUNT AND DIFF, CSF WAS CANCELLED, 01/26/2017 00:48 NO SPECIMENRECEIVED IN LAB. Performed By: #### E SRWS ####[facility] [place] [address] IMMATURE GRANS Canceled Normal [facility] Comment on above: Order Comment: TEST CELL COUNT AND DIFF, CSF WAS CANCELLED, 01/26/2017 00:48 NO SPECIMENRECEIVED IN LAB. Performed By: #### E SRWS ####[facility] [place] [address] Lymphocytes Canceled Normal [facility] Comment on above: Order Comment: TEST CELL COUNT AND DIFF, CSF WAS CANCELLED, 01/26/2017 00:48 NO SPECIMENRECEIVED IN LAB. Performed By: #### E SRWS ####[facility] [place] [address] MONONUCLEAR CELLS Canceled Normal [facility] Comment on above: Order Comment: TEST CELL COUNT AND DIFF, CSF WAS CANCELLED, 01/26/2017 00:48 NO SPECIMENRECEIVED IN LAB. Performed By: #### E SRWS ####[facility] [place] [address] Neutrophils Canceled Normal [facility] Comment on above: Order Comment: TEST CELL COUNT AND DIFF, CSF WAS CANCELLED, 01/26/2017 00:48 NO SPECIMENRECEIVED IN LAB. Performed By: #### E SRWS ####[facility] [place] [address] PLASMA CELLS Canceled Normal [facility] Comment on above: Order Comment: TEST CELL COUNT AND DIFF, CSF WAS CANCELLED, 01/26/2017 00:48 NO SPECIMENRECEIVED IN LAB. Performed By: #### E SRWS ####[facility] [place] [address] SUPERNATANT Canceled Normal [facility] Comment on above: Order Comment: TEST CELL COUNT AND DIFF, CSF WAS CANCELLED, 01/26/2017 00:48 NO SPECIMENRECEIVED IN LAB. Performed By: #### E SRWS ####[facility] [place] [address] TUBE # Canceled Normal [facility] Comment on above: Order Comment: TEST CELL COUNT AND DIFF, CSF WAS CANCELLED, 01/26/2017 00:48 NO SPECIMENRECEIVED IN LAB. Performed By: #### E SRWS ####[facility] [place] [address] UNCLASSIFIED CELLS Canceled Normal [facility] Comment on above: Order Comment: TEST CELL COUNT AND DIFF, CSF WAS CANCELLED, 01/26/2017 00:48 NO SPECIMENRECEIVED IN LAB. Performed By: #### E SRWS ####[facility] [place] [address] Urine, clarity Canceled Normal [facility] Comment on above: Order Comment: TEST CELL COUNT AND DIFF, CSF WAS CANCELLED, 01/26/2017 00:48 NO SPECIMENRECEIVED IN LAB. Performed By: #### E SRWS ####[facility] [place] [address] Urine, color Canceled Normal [facility] Comment on above: Order Comment: TEST CELL COUNT AND DIFF, CSF WAS CANCELLED, 01/26/2017 00:48 NO SPECIMENRECEIVED IN LAB. Performed By: #### E SRWS ####[facility] [place] [address] WBC (Leukocytes) Canceled Normal [facility] Comment on above: Order Comment: TEST CELL COUNT AND DIFF, CSF WAS CANCELLED, 01/26/2017 00:48 NO SPECIMENRECEIVED IN LAB. Performed By: #### E SRWS ####[facility] [place] [address] Basophils/100 WBC Auto (Bld) Canceled Normal [facility] Comment on above: Order Comment: TEST CELL COUNT AND DIFF, CSF WAS CANCELLED, 01/26/2017 00:48 NO SPECIMENRECEIVED IN LAB. Performed By: #### E SRWS ####[facility] [place] [address] BLASTS Canceled Normal [facility] Comment on above: Order Comment: TEST CELL COUNT AND DIFF, CSF WAS CANCELLED, 01/26/2017 00:48 NO SPECIMENRECEIVED IN LAB. Performed By: #### E SRWS ####[facility] [place] [address] CELLS COUNTED Canceled Normal [facility] Comment on above: Order Comment: TEST CELL COUNT AND DIFF, CSF WAS CANCELLED, 01/26/2017 00:48 NO SPECIMENRECEIVED IN LAB. Performed By: #### E SRWS ####[facility] [place] [address] CSF COMMENT Canceled Normal [facility] Comment on above: Order Comment: TEST CELL COUNT AND DIFF, CSF WAS CANCELLED, 01/26/2017 00:48 NO SPECIMENRECEIVED IN LAB. Performed By: #### E SRWS ####[facility] [place] [address] Eosinophils Canceled Normal [facility] Comment on above: Order Comment: TEST CELL COUNT AND DIFF, CSF WAS CANCELLED, 01/26/2017 00:48 NO SPECIMENRECEIVED IN LAB. Performed By: #### E SRWS ####[facility] [place] [address] Erythrocytes (RBC) Canceled Normal [facility] Comment on above: Order Comment: TEST CELL COUNT AND DIFF, CSF WAS CANCELLED, 01/26/2017 00:48 NO SPECIMENRECEIVED IN LAB. Performed By: #### E SRWS ####[facility] [place] [address] IMMATURE GRANS Canceled Normal [facility] Comment on above: Order Comment: TEST CELL COUNT AND DIFF, CSF WAS CANCELLED, 01/26/2017 00:48 NO SPECIMENRECEIVED IN LAB. Performed By: #### E SRWS ####[facility] [place] [address] Lymphocytes Canceled Normal [facility] Comment on above: Order Comment: TEST CELL COUNT AND DIFF, CSF WAS CANCELLED, 01/26/2017 00:48 NO SPECIMENRECEIVED IN LAB. Performed By: #### E SRWS ####[facility] [place] [address] MONONUCLEAR CELLS Canceled Normal [facility] Comment on above: Order Comment: TEST CELL COUNT AND DIFF, CSF WAS CANCELLED, 01/26/2017 00:48 NO SPECIMENRECEIVED IN LAB. Performed By: #### E SRWS ####[facility] [place] [address] Neutrophils Canceled Normal [facility] Comment on above: Order Comment: TEST CELL COUNT AND DIFF, CSF WAS CANCELLED, 01/26/2017 00:48 NO SPECIMENRECEIVED IN LAB. Performed By: #### E SRWS ####[facility] [place] [address] PLASMA CELLS Canceled Normal [facility] Comment on above: Order Comment: TEST CELL COUNT AND DIFF, CSF WAS CANCELLED, 01/26/2017 00:48 NO SPECIMENRECEIVED IN LAB. Performed By: #### E SRWS ####[facility] [place] [address] SUPERNATANT Canceled Normal [facility] Comment on above: Order Comment: TEST CELL COUNT AND DIFF, CSF WAS CANCELLED, 01/26/2017 00:48 NO SPECIMENRECEIVED IN LAB. Performed By: #### E SRWS ####[facility] [place] [address] TUBE # Canceled Normal [facility] Comment on above: Order Comment: TEST CELL COUNT AND DIFF, CSF WAS CANCELLED, 01/26/2017 00:48 NO SPECIMENRECEIVED IN LAB. Performed By: #### E SRWS ####[facility] [place] [address] UNCLASSIFIED CELLS Canceled Normal [facility] Comment on above: Order Comment: TEST CELL COUNT AND DIFF, CSF WAS CANCELLED, 01/26/2017 00:48 NO SPECIMENRECEIVED IN LAB. Performed By: #### E SRWS ####[facility] [place] [address] Urine, clarity Canceled Normal [facility] Comment on above: Order Comment: TEST CELL COUNT AND DIFF, CSF WAS CANCELLED, 01/26/2017 00:48 NO SPECIMENRECEIVED IN LAB. Performed By: #### E SRWS ####[facility] [place] [address] Urine, color Canceled Normal [facility] Comment on above: Order Comment: TEST CELL COUNT AND DIFF, CSF WAS CANCELLED, 01/26/2017 00:48 NO SPECIMENRECEIVED IN LAB. Performed By: #### E SRWS ####[facility] [place] [address] WBC (Leukocytes) Canceled Normal [facility] Comment on above: Order Comment: TEST CELL COUNT AND DIFF, CSF WAS CANCELLED, 01/26/2017 00:48 NO SPECIMENRECEIVED IN LAB. Performed By: #### E SRWS ####[facility] [place] [address] CELL COUNT AND DIFF, FLUIDon 01-26-2017 Eosinophils/100 leukocytes 1 % Normal [facility] Comment on above: Performed By: #### C K ####[facility] [place] [address] Erythrocytes (RBC) 0.95845 10*6/uL Normal [facility] Comment on above: Performed By: #### C K ####[facility] [place] [address] Lymphocytes/100 leukocytes 18 % Normal [facility] Comment on above: Performed By: #### C K ####[facility] [place] [address] MONONUCLEAR CELLS 60 % Normal [facility] Comment on above: Performed By: #### C K ####[facility] [place] [address] Neutrophils/100 leukocytes 21 % Normal [facility] Comment on above: Performed By: #### C K ####[facility] [place] [address] Urine, clarity Clear Normal CLEAR [facility] Comment on above: Performed By: #### C K ####[facility] [place] [address] Urine, color Colorless Normal YELLOW [facility] Comment on above: Performed By: #### C K ####[facility] [place] [address] WBC (Leukocytes) 0.165 10*3/uL Normal [facility] Comment on above: Performed By: #### C K ####[facility] [place] [address] CELLS COUNTED 100 Normal [facility] Comment on above: Performed By: #### C K ####[facility] [place] [address] Lab Specimen Source Bronchial Wash Normal [facility] Comment on above: Performed By: #### C K ####[facility] [place] [address] Performed By: #### R ENAL ####[facility] [place] [address] CREATINE KINASEon 01-26-2017 Creatine kinase (CK) 19 U/L Normal 0 - 215 [facility] Comment on above: Performed By: #### E SRWS ####[facility] [id number] FUNGAL CULTURE/, [facility] [place]URE/, [facility] [place]IENT: LAURA MCGEE LOCATION: [address]#: [id number] : 53 AGE: SEX: F ORDERED BY: OLEG YUSUF: BRONCHIAL COLLECTED: 01/26/17 13:36ANTIBIOTICS AT GAYLA.: RECEIVED : 01/26/17 13:39SITE: [facility] [place] R E S U L T S FUNGAL SMEAR FINAL 01/27/17 11:37 FLUORESCENT FUNGAL STAIN: NEGATIVE FUNGAL CULTURE/, [facility] FINAL 02/15/17 09:41 NO FUNGI ISOLATED. Normal [facility] Comment on above: Performed By: #### C OAGS ####[facility] [id number] FUNGITELL BETA-D GLUCAN,Son 01-26-2017 Glucose mass conc mg/dL High <80 [facility] Comment on above: Result Comment: Inte rpretation: The Fungitell assay does not detectcertainfungal species such as the genus Cryptococcus (Julio César etal. 1991) which produces very low levels of(1-3)-Dfox-C-Aptcgj. The assay also does not detect theZygomycetes such as Absidia, Mucor and Rhizopus (Shaunayaetal. 1994) which are not known to produce(1-3)-Izrt-M-Ontiwz. In addition, the yeast phase ofBlastomyces dermatitidis produces little(1-3)-Clfv-U-Bffcxz and may not be detected by the assay(Ely et al. 2007).Reference Range:Less than 60 pg/mL. Glucan values of less than 60 pg/mLareinterpreted as negative.Glucan values of 60 to 79 pg/mL are interpreted asindeterminate, and suggest a possible fungal infection.Additional sampling and testing of sera is required tointerpret the results.Glucan values of greater than or equal to 80 pg/mL areinterpreted as positive.Due to the potential for environmental contamination whentransferred to pour-off tubes, which can lead to falsepositive results, interpret positive results from samplesprovided in pour-off tubes with caution. Results shouldbeused in conjunction with clinical findings, and should notform the sole basis for a diagnosis or treatment decision.The Fungitell test is approved or cleared for in vitrodiagnostic use by the U.[place] Food and Drug Administration.Modifications to the approved package insert have beenmadeand the performance characteristics for thesemodificationswere determined by [employer].If sample result is greater than 500 pg/mL, physician mayorder a titer of the sample. Please contact [employer] if you would like to order a retest of thissampleto obtain an actual value. Samples are held for 1 weekafter initial testing date. ___Performed At:[employer] DriveHobe [place] [address]BdpfrcuxTerrie Peres PhD HCLD (ABB)CLIA# [id number] Performed By: #### C K ####[facility] [place] [address] GLUCOSE-POCTon 01-26-2017 Glucose mass conc 119 mg/dL High 74 - 99 [facility] Comment on above: Performed By: #### C K ####[facility] [place] [address] RENAL FUNCTION PANELon 01-26 Albumin 1.9 g/dL Low 3.4 - 5.0 [facility] Comment on above: Performed By: #### E SRWS ####[facility] [place] [address] Anion gap 12 mmol/L Normal 10 - 20 [facility] Comment on above: Performed By: #### E SRWS ####[facility] [place] [address] Bicarbonate (HCO3) 21 mmol/L Normal 21 - 32 [facility] Comment on above: Performed By: #### E SRWS ####[facility] [place] [address] Calcium 8.3 mg/dL Low 8.6 - 10.6 [facility] Comment on above: Performed By: #### E SRWS ####[facility] [place] [address] Chloride 110 mmol/L High 98 - 107 [facility] Comment on above: Performed By: #### E SRWS ####[facility] [place] [address] Creatinine 1.01 mg/dL Normal 0.50 - 1.05 [facility] Comment on above: Performed By: #### E SRWS ####[facility] [place] [address] eGFR (non-black) 67 mL/min/{1.73_m2} Normal >60 [facility] Comment on above: Result Comment: CALC ULATIONS OF ESTIMATED GFR ARE PERFORMED USING THE MDRD STUDY EQUATION FOR THE IDMS-TRACEABLE CREATININE METHODS. CLIN CHEM 2007;53:766-72 Performed By: #### E SRWS ####[facility] [place] [address] eGFR (non-black) 55 mL/min/{1.73_m2} Abnormal >60 [facility] Comment on above: Performed By: #### E SRWS ####[facility] [place] [address] Glucose mass conc 73 mg/dL Low 74 - 99 [facility] Comment on above: Performed By: #### E SRWS ####[facility] [place] [address] Phosphate 3.4 mg/dL Normal 2.5 - 4.9 [facility] Comment on above: Result Comment: The performance characteristics of phosphorus testing in heparinized plasma have been validated by the individual laboratory site where testing is performed. Testing on heparinized plasma is not approved by the FDA; however, such approval is not necessary. Performed By: #### E SRWS ####[facility] [place] [address] Potassium molar conc 3.7 mmol/L Normal 3.5 - 5.3 [facility] Comment on above: Performed By: #### E SRWS ####[facility] [place] [address] Sodium 139 mmol/L Normal 136 - 145 [facility] Comment on above: Performed By: #### E SRWS ####[facility] [place] [address] Urea nitrogen 20 mg/dL Normal 6 - 23 [facility] Comment on above: Performed By: #### E SRWS ####[facility] [place] [address] RESPIRATORY CULT./,LOWERon 01-26-2017 RESPIRATORY CULT./,LOWER PATIENT: LAURA STARK LOCATION: [address]#: [id number] : 53 AGE: SEX: F ORDERED BY: OLEG YUSUF: BRONCHIAL COLLECTED: 01/26/17 13:36ANTIBIOTICS AT GAYLA.: RECEIVED : 01/26/17 14:47SITE: BAL RUL LING[place]A R E S U L T S GRAM STAIN FINAL 01/27/17 02:31 1+ GRANULOCYTES. NO ORGANISMS SEEN. RESPIRATORY CULT./SM,LOWER FINAL 01/28/17 09:35 1+ NORMAL THROAT VERN. ISOLATE1 : Staphylococcus aureus 1+ METHICILLIN(OXACILLIN)RESI STANT METHICILLIN(OXACILLIN)RESI STANT STAPHYLOCOCCI ARE RESISTANT TO ALL CURRENTLY AVAILABLE PENICILLINS, BETA-LACTAM/BETA-LACTAMASE INHIBITOR COMBINATIONS (INCLUDING AMPICILLIN/SULBACTAM, AMOXICILLIN/CLAVULANATE AND PIPERACILLIN/TAZOBACTAM),C ARBAPENEMS AND CEPHALOSPORINS(EXCEPT CEFTAROLINE). Organism S aureus Antibiotic BP INTRP Ampicill in R Clindamycin R Ciprofloxacin R Erythromycin R Gentamicin S Levofloxacin R Oxacillin R Penicillin R Trimeth/Sulfa S Tetracycline S Vancomycin S S=SUSCEPTIBLE I=INTERMEDIATE R=RESISTANT SDD=SUSCEPTIBLE DOSE DEPENDENT NS=NONSUSCEPTIBLEX=REPORTE D IN ERROR Normal [facility] Comment on above: Performed By: #### C OAGS ####[facility] [place] [address] TH CHEST 1 VIEWon 01-26-2017 TH CHEST 1 VIEW Name: LAURA STARK STUDY:TH CHEST 1 VIEW; 01/26/2017 11:10 am INDICATION:Signs/Symptoms: Post bronchoscopy, R/o pneumothorax. COMPARISON:01/22/2017 ORDERING CLINICIAN:MICHELLE NAIDU FINDINGS:Tip of right-sided PICC now projects over the mid SVC. CARDIOMEDIASTINAL SILHOUETTE:The cardiomediastinal silhouette is stable in size and configuration. LUNGS:Redemonstration of patchy airspace opacity in bilateral lungs. Thereis bilateral small pleural effusion. No sizable pneumothorax. ABDOMEN:No remarkable upper abdominal findings. BONES:No acute osseous changes. Postsurgical changes in the right shoulder IMPRESSION:1. No pneumothorax is seen status post bronchoscopy.2. Redemonstration of patchy airspace opacity and nodularity inbilateral lungs. Correlation for multifocal pneumonitis/pneumonia.3. Small bilateral pleural effusion.I personally reviewed the images/study and I agree with the findingsas stated. This study was interpreted at [place], [place].Electronically signed by: MEEK LONG MD Normal [facility] Cytologyon 01-26-2017 [facility] Cytology Name Zuleyma STARKession #: [id number] of Procedure: 01/26/2017 Date Reported: 01/27/2017Date Received: 01/26/2017Date of / Sex 1955 (Age: 62) / FRace: WHITESubmitting Physician: HEAVEN KOCH MD, PhDAttending Physician: Other External # FINAL CYTOLOGICAL INTERPRETATIONA. BRONCHO-ALVEOLAR LAVAGE OF RIGHT UPPER LOBE, LINGULA:--NO MALIGNANT CELLS OR VIRAL INCLUSIONS IDENTIFIED.--SILVER STAIN FOR PNEUMOCYSTIS CARINII AND FUNGAL ORGANISMS IS NEGATIVE. Electronically Signed Out By Pato Orozco MDBy the signature on this report, the individual or group listed as making theFinal Interpretation/Diagnosis certifies that they have reviewed this case. Slide(s) initially screened by a Type Caster at [place] [address] Clinical HistoryLUNG INFILTRATE Source of SpecimenA: BRONCHO-ALVEOLAR LAVAGE OF RIGHT UPPER LOBE, LINGULA Specimen Submitted as:A: BRONCHO-ALVEOLAR LAVAGE OF RIGHT UPPER LOBE, LINGULA pap non-feather shaper ThinPrep slide, H GMS PCPGross [id number] CLOUDY FLUID, WITH PARTICLES, REC'D IN JAR Normal [facility] Comment on above: Performed By: #### R ENAL ####[facility] [place] [address] [facility] Surgical Pathology Depar tmenton 01-26-2017 [facility] Surgical Pathology Department Name LAURA STARK Pathologist: ERNIE IRWIN,MDDate of Procedure: 01/26/2017Date Received: 01/26/2017Date Reported 01/28/2017Submitting Physician: HEAVEN KOCH MD, PhDLocation: [place] [phone] Copy To/Referring/Attending:DALILA YUSUF MD Other External # FINAL DIAGNOSISA. LUNG, RIGHT UPPER LOBE, TRANSBRONCHIAL BIOPSY:-- ORGANIZING PNEUMONIA PATTERN, SEE NOTE.Note: Sections show fragments of alveolated pulmonary parenchyma with airspaceorganization, chronic inflammation, intra-alveolar blood and fibrin, andreactive Type 2 pneumocyte hyperplasia. No significant interstitial fibrosis isnoted. No vasculitis is present. No granulomas are seen. No evidence ofmalignancy is identified. Polariscopic examination reveals no birefringentparticles. The etiology of the organizing pneumonia pattern of lung injury isnot determined histologically. The differential diagnosis is broad and includesorganizing infection, organizing diffuse alveolar damage, drug or toxicreaction, collagen vascular disease, and others. Recommend clinical andradiologic correlation. The gross and/or microscopic findings were reviewed in conjunction withpathology resident, Genevieve Jain M.D. Electronically Signed Out By ERNIE IRWIN MD/Mirela the signature on this report, the individual or group listed as making theFinal Interpretation/Diagnosis certifies that they have reviewed this case. Clinical History:Lung infiltrateSpecimens Submitted As:A: RUL TBBX Gross Description:A. Received in formalin, labeled with the patient's name and hospital numberand TBBX RUL, are multiple minute fragments of pink-white soft tissueaggregating to 0.9 x 0.1 x 0.1 cm. The specimen is submitted in toto in onecassette.Hl/ 017 Normal [facility] Comment on above: Performed By: #### C OAGS ####[facility] [place] [address] VIRAL CULTUREon 01-26-2017 VIRAL CULTURE Viral culture will s upport the growth of the following viruses:Adenovirus, CMV, Enteroviruses, HSV, Influenza,Metapneumovirus, Parainfluenza,RSV, and VZV.Culture for Mumps,Rhinovirus,Rubella, and Rubeola virus requirea specific request.EBV,BK virus,SRAVAN virus, and Arboviruses likeWest Nile do not grow in culture.PCR is recommended for the detection of all Herpes family viruses in CSF.PATIENT: LAURA STARK LOCATION: [address]#: [id number] : 53 AGE: SEX: F ORDERED BY: OLEG YUSFU: BRONCHIAL COLLECTED: 01/26/17 13:36ANTIBIOTICS AT GAYLA.: RECEIVED : 01/26/17 13:40SITE: [facility] T S VIRAL CULTURE FINAL 02/01/17 10:12 NO VIRUS DETECTED. Viral culture will support the growth of the following viruses: Adenovirus, CMV, Enteroviruses, HSV, Influenza,Metapneumovirus, Parainfluenza,RSV, and VZV. Culture for Mumps,Rhinovirus,Rubella, and Rubeola virus require a specific request.EBV,BK virus,SRAVAN virus, and Arboviruses like West Nile do not grow in culture. PCR is recommended for the detection of all Herpes family viruses in CSF. Normal [facility] Comment on above: Performed By: #### C OAGS ####[facility] [place] [address] CBCon 01-25-2017 Erythrocyte distribution width Auto Ratio (RBC) 22.5 % High 11.5 - 14.5 [facility] Comment on above: Performed By: #### M DIFF ####[facility] [place] [address] Erythrocytes (RBC) 2.58 x10E12/L Low 4.00 - 5.20 [facility] Comment on above: Performed By: #### M DIFF ####[facility] [place] [address] Hematocrit (HCT) 25.2 % Low 36.0 - 46.0 [facility] Comment on above: Performed By: #### M DIFF ####[facility] [place] [address] Hemoglobin mass conc (Bld) 7.7 g/dL Low 12.0 - 16.0 [facility] Comment on above: Performed By: #### M DIFF ####[facility] [place] [address] MCHC mass conc (RBC) 30.6 g/dL Low 32.0 - 36.0 [facility] Comment on above: Performed By: #### M DIFF ####[facility] [place] [address] MCV 98 fL Normal 80 - 100 [facility] Comment on above: Performed By: #### M DIFF ####[facility] [place] [address] Nucleated erythrocytes 1.0 /100 WBC Abnormal 0.0-0.0 [facility] Comment on above: Performed By: #### M DIFF ####[facility] [place] [address] Platelets 377 10*3/uL Normal 150 - 450 [facility] Comment on above: Performed By: #### M DIFF ####[facility] [place] [address] WBC (Leukocytes) 7.9 10*3/uL Normal 4.4 - 11.3 [facility] Comment on above: Performed By: #### M DIFF ####[facility] [place] [address] Erythrocyte distribution width Auto Ratio (RBC) Canceled Normal [facility] Comment on above: Order Comment: TEST CBC WAS CANCELLED, 01/25/2017 00:17 NO SPECIMEN RECEIVED IN LAB. Performed By: #### M DIFF ####[facility] [place] [address] Erythrocytes (RBC) Canceled Normal [facility] Comment on above: Order Comment: TEST CBC WAS CANCELLED, 01/25/2017 00:17 NO SPECIMEN RECEIVED IN LAB. Performed By: #### M DIFF ####[facility] [place] [address] Hematocrit (HCT) Canceled Normal [facility] Comment on above: Order Comment: TEST CBC WAS CANCELLED, 01/25/2017 00:17 NO SPECIMEN RECEIVED IN LAB. Performed By: #### M DIFF ####[facility] [place] [address] Hemoglobin mass conc (Bld) Canceled Normal [facility] Comment on above: Order Comment: TEST CBC WAS CANCELLED, 01/25/2017 00:17 NO SPECIMEN RECEIVED IN LAB. Performed By: #### M DIFF ####[facility] [place] [address] MCHC mass conc (RBC) Canceled Normal [facility] Comment on above: Order Comment: TEST CBC WAS CANCELLED, 01/25/2017 00:17 NO SPECIMEN RECEIVED IN LAB. Performed By: #### M DIFF ####[facility] [place] [address] MCV Canceled Normal [facility] Comment on above: Order Comment: TEST CBC WAS CANCELLED, 01/25/2017 00:17 NO SPECIMEN RECEIVED IN LAB. Performed By: #### M DIFF ####[facility] [place] [address] Nucleated erythrocytes Canceled Normal [facility] Comment on above: Order Comment: TEST CBC WAS CANCELLED, 01/25/2017 00:17 NO SPECIMEN RECEIVED IN LAB. Performed By: #### M DIFF ####[facility] [place] [address] Platelets Canceled Normal [facility] Comment on above: Order Comment: TEST CBC WAS CANCELLED, 01/25/2017 00:17 NO SPECIMEN RECEIVED IN LAB. Performed By: #### M DIFF ####[facility] [place] [address] WBC (Leukocytes) Canceled Normal [facility] Comment on above: Order Comment: TEST CBC WAS CANCELLED, 01/25/2017 00:17 NO SPECIMEN RECEIVED IN LAB. Performed By: #### M DIFF ####[facility] [place] [address] CORTISOL, A.M.on 01-25-2017 CORTISOL, A.M. 16.0 ug/dL Normal 5.0 - 20.0 [facility] Comment on above: Performed By: #### M DIFF ####[facility] [place] [address] CORTISOL,UNSPECIFIEDon 01-25 CORTISOL,UNSPECIFIED 29.6 ug/dL High 2.5 - 20.0 [facility] Comment on above: Performed By: #### E SRWS ####[facility] [place] [address] CORTISOL,UNSPECIFIED 33.6 ug/dL High 2.5 - 20.0 [facility] Comment on above: Performed By: #### E SRWS ####[facility] [place] [address] CORTISOL,UNSPECIFIED 23.7 ug/dL High 2.5 - 20.0 [facility] Comment on above: Performed By: #### M DIFF ####[facility] [place] [address] DUPLEX EXTREMITY VEINS LMTD/ UNILATon 01-25-2017 DUPLEX EXTREMITY VEINS LMTD/UNILAT Name: LAURA STARK STUDY:DUPLEX EXTREMITY VEINS LMTD/UNILAT; 01/25/2017 8:40 pm INDICATION:Signs/Symptoms: right upper extremity, swollen and painful. COMPARISON:None. ORDERING CLINICIAN:DUTCH HADDAD TECHNIQUE:Real time ultrasound evaluation was performed of the right internaljugular and upper extremity veins. Manual compression was applied.Color doppler and spectral doppler evaluation were performed. FINDINGS: RIGHT:The right internal jugular, subclavian, axillary, brachial, basilic,and cephalic veins are normal in appearance, patent on color doppler,fully compressible, and demonstrate normal respiratory variation onspectral doppler. A PICC is noted within the right basilic vein, right axillary vein,and right subclavian vein. No associated thrombus or abnormality isidentified along the visualized portions of the PICC. Limited evaluation of the left subclavian vein demonstrates normalpatency on color and spectral Doppler. IMPRESSION:No evidence of deep venous thrombosis in the right upper extremity.Electronically signed by: JOO VALLE MD Normal [facility] EMR ADDONon 01-25-2017 ADDON CONFIRMATION REQUEST REC'D Normal [facility] Comment on above: Performed By: #### E SRWS ####[facility] [place] [address] ADDON CONFIRMATION REQUEST REC'D Normal [facility] Comment on above: Performed By: #### M DIFF ####[facility] [place] [address] GLUCOSE-POCTon 01-25-2017 Glucose mass conc 86 mg/dL Normal 74 - 99 [facility] Comment on above: Performed By: #### M DIFF ####[facility] [place] [address] Glucose mass conc 126 mg/dL High 74 - 99 [facility] Comment on above: Performed By: #### M ORP2 ####[facility] [place] [address] HEPARIN ASSAY,UFHon 01-26-20 17 HEPARIN ASSAY,UFH 0.3 IU/mL Normal [facility] Comment on above: Result Comment: The therapeutic reference range for UFH may be either 0.3-0.6 IU/mL or 0.3-0.7 IU/mL based on the clinical setting for anticoagulant therapy and the associated nomogram used. For heparin dosing guidelines based on clinical scenario and Heparin Assay results, please refer to local Pharmacy and the [facility] Guidelines for Anticoagulation therapy available on the [facility] intranet at:[email or web address].[facility].[email or web address]/Pharmacy/Pages/[facility]_Guidelines_for_Anticoagu.aspx Performed By: #### M DIFF ####[facility] [place] [address] HEPARIN ASSAY,UFH 0.3 IU/mL Normal [facility] Comment on above: Result Comment: The therapeutic reference range for UFH may be either 0.3-0.6 IU/mL or 0.3-0.7 IU/mL based on the clinical setting for anticoagulant therapy and the associated nomogram used. For heparin dosing guidelines based on clinical scenario and Heparin Assay results, please refer to local Pharmacy and the [facility] Guidelines for Anticoagulation therapy available on the [facility] intranet at:[email or web address]/Pharmacy/Pages/[facility]_Guidelines_for_Anticoagu.aspx Performed By: #### M DIFF ####[facility] [place] [address] RAD OUTSIDE EXAM OVER READon 01-25-2017 RAD OUTSIDE EXAM OVER READ Name: LAURA STARK STUDY:RAD OUTSIDE EXAM OVER READ; 01/25/2017 6:19 pm INDICATION:SHORTNESS OF BREATH, CT ABDOMEN [facility] FROM CD ON 01/25/2017 AT 3:40 P.M., DICTATIONREQUIRED FOR MEDICAL NECESSITY, ORIGINAL DICTATION NOT AVAILABLE. COMPARISON:CT chest dated 01/23/2017 ORDERING CLINICIAN:ERNIE YUSUF TECHNIQUE:Submitted for interpretation [place] the [place]'s name and dated 01/12/17 [facility] These contain a acoustical tile drill press operator [address] imagesthrough the abdomen and pelvis. Coronal and sagittal reconstructionswere provided. The report was requested for medical necessity by Dr. MOCTEZUMA.Please note that outside hospital CT interpretation is greatlylimited by lack of technical factors, information about clinicalsetting, contrast timing, etc. The interpretation provided is thebest possible under the circumstances but please obtain the originalinterpretation by the supervising radiologist/service. FINDINGS:There is streak artifact over regions of the abdomen and pelvissecondary to patient's arm positioning. LOWER CHEST:There significant respiratory motion artifact. Within theselimitations, there is mixed interstitial infiltrate and thickening inthe bilateral lower lung lobes. The heart is normal in size without pericardial effusion. Visualizeddistal esophagus appears normal. ABDOMEN: LIVER:The liver is normal in size without evidence of focal liver lesions. BILE DUCTS:The intrahepatic and extrahepatic ducts are not dilated. GALLBLADDER:The gallbladder is present. PANCREAS:The pancreas appears unremarkable. SPLEEN:The spleen is normal in size without focal lesions. ADRENAL GLANDS:Bilateral adrenal glands appear normal. KIDNEYS AND URETERS:There is bilateral diffuse heterogeneous renal parenchymalenhancement with scarring. no hydroureteronephrosis ornephroureterolithiasis is identified. PELVIS: BLADDER:The urinary bladder is decompressed with a Liz catheter in place,limited for evaluation. REPRODUCTIVE ORGANS:The uterus is surgically absent. BOWEL:The stomach is unremarkable. The small and large bowel are normal incaliber and demonstrate no wall thickening. The appendix appearsnormal. VESSELS:There is mild atherosclerotic disease of the abdominal aorta. The IVCis intact. PERITONEUM/RETROPERITONEUM /LYMPH NODES:No ascites or free air, no fluid collection. No abdominopelviclymphadenopa thy is present. BONES AND ABDOMINAL WALL:No suspicious osseous lesions are identified. Degenerative discogenicdisease is noted in the lower thoracic and lumbar spine. There is anS shaped curve of the thoracolumbar spine. The abdominal wall softtissues appear normal. IMPRESSION:1. Mixed interstitial and alveolar parenchymal changes in thebilateral lower lung lobes. Recommend correlation with dedicated CTchest findings.2. Bilateral diffuse heterogeneous renal parenchymal enhancement withscarring. Recommend correlation with history of renal disease.I personally reviewed the images/study and I agree with the findingsas stated. This study was interpreted at [place], [place].Electronically signed by: CECI FOLEY MD Normal [facility] RAD OUTSIDE EXAM OVER READ Name: LAURA STARK STUDY:RAD OUTSIDE EXAM OVER READ; 01/25/2017 6:19 pm INDICATION:SHORTNESS OF BREATH, CT CHEST DATED 01/12/2017 FROM [facility] PACS FROM CD ON 01/25/2017 AT 3:40 P.M., DICTATION REQUIRED FORMEDICAL NECESSITY, ORIGINAL DICTATION NOT AVAILABLE. COMPARISON:None. ORDERING CLINICIAN:ERNIE YUSUF TECHNIQUE:CT of the chest was performed with intravenous contrast. 100 mL ofIsovue 300 was administered. Multiplanar reconstruction wasperformed. Note that this study is partially limited secondary tomotion artifact. FINDINGS:LUNGS and AIRWAYS:The trachea and central airways are patent. No endobronchial lesion. There is diffuse interstitial prominence with patchy consolidationsand scattered ground-glass opacifications throughout the pulmonaryparenchyma. These findings are concerning for multifocalpneumonia/pneumo nitis, although a vasculitis is not excluded. Tracebibasilar pleural effusions are seen, left greater than right, withdependent atelectasis. MEDIASTINUM and VERO, LOWER NECK AND AXILLA:The visualized thyroid gland is grossly unremarkable. Multiple prominent lymph nodes are seen that are not enlarged by CTcriteria, such as a 9 mm in short axis prevascular lymph node (image34 of 101) and a 8 mm right paratracheal lymph node (image 24 of 101). Esophagus is not dilated. HEART and VESSELS:The heart is normal in gross morphology and size. No significant pericardial effusion. No central pulmonary embolism identified on nondedicated study. Smallsubsegmental pulmonary emboli cannot be ruled out secondary to motionartifact. Mild coronary atherosclerosis. Mild thoracic aortic atherosclerosis without stenosis or aneurysm . UPPER ABDOMEN:The visualized subdiaphragmatic structures demonstrate no acutefindings on limited images. CHEST WALL and OSSEOUS STRUCTURES:No suspicious osseous lesions. Mild multilevel degenerative changesof the thoracic spine. IMPRESSION:1. Patchy areas of solid and ground-glass opacification andconsolidation concerning for multifocal pneumonitis/pneumonia. Givenhistory of asthma, a vasculitis cannot be excluded.2. Within limitations of the study, no pulmonary embolism is seen.3. Trace bibasilar pleural effusions with dependent atelectasis, leftgreater than right.4. Multiple prominent thoracic lymph nodes that are not enlarged byCT criteria, and are likely reactive in nature.I personally reviewed the images/study and I agree with the findingsas stated. This study was interpreted at [facility], [place], [place].Electronically signed by: MEEK LONG MD Normal [facility] RENAL FUNCTION PANELon 01-25 Albumin 2.0 g/dL Low 3.4 - 5.0 [facility] Comment on above: Performed By: #### M DIFF ####[facility] [place] [address] Anion gap 13 mmol/L Normal 10 - 20 [facility] Comment on above: Performed By: #### M DIFF ####[facility] [place] [address] Bicarbonate (HCO3) 21 mmol/L Normal 21 - 32 [facility] Comment on above: Performed By: #### M DIFF ####[facility] [place] [address] Calcium 8.6 mg/dL Normal 8.6 - 10.6 [facility] Comment on above: Performed By: #### M DIFF ####[facility] [place] [address] Chloride 110 mmol/L High 98 - 107 [facility] Comment on above: Performed By: #### M DIFF ####[facility] [place] [address] Creatinine 1.07 mg/dL High 0.50 - 1.05 [facility] Comment on above: Performed By: #### M DIFF ####[facility] [place] [address] eGFR (non-black) 63 mL/min/{1.73_m2} Normal >60 [facility] Comment on above: Result Comment: CALC ULATIONS OF ESTIMATED GFR ARE PERFORMED USING THE MDRD STUDY EQUATION FOR THE IDMS-TRACEABLE CREATININE METHODS. CLIN CHEM 2007;53:766-72 Performed By: #### M DIFF ####[facility] [place] [address] eGFR (non-black) 52 mL/min/{1.73_m2} Abnormal >60 [facility] Comment on above: Performed By: #### M DIFF ####[facility] [place] [address] Glucose mass conc 74 mg/dL Normal 74 - 99 [facility] Comment on above: Performed By: #### M DIFF ####[facility] [place] [address] Phosphate 3.5 mg/dL Normal 2.5 - 4.9 [facility] Comment on above: Result Comment: The performance characteristics of phosphorus testing in heparinized plasma have been validated by the individual laboratory site where testing is performed. Testing on heparinized plasma is not approved by the FDA; however, such approval is not necessary. Performed By: #### M DIFF ####[facility] [place] [address] Potassium molar conc 3.9 mmol/L Normal 3.5 - 5.3 [facility] Comment on above: Performed By: #### M DIFF ####[facility] [place] [address] Sodium 140 mmol/L Normal 136 - 145 [facility] Comment on above: Performed By: #### M DIFF ####[facility] [place] [address] Urea nitrogen 28 mg/dL High 6 - 23 [facility] Comment on above: Performed By: #### M DIFF ####[facility] [place] [address] RESPIRATORY VIRAL PANELon Lab Specimen Source Nasal Swab Normal [facility] Comment on above: Performed By: #### C OAGS ####[facility] [place] [address] RHEUMATOID FACTORon 01-26-20 17 RHEUMATOID FACTOR <10 Normal 0 - 15 [facility] Comment on above: Performed By: #### M DIFF ####[facility] [place] [address] ACTHon 01-24-2017 ACTH Canceled [facility] [facility] Comment on above: Order Comment: TEST ACTH WAS CANCELLED, 01/24/2017 19:08 LAB ERROR. Performed By: #### M ORP2 ####[facility] [place] [address] ANTINUCLEAR ANTIBODYon 01-24 ANTINUCLEAR ANTIBODY Negative Normal NEGATIVE [facility] Comment on above: Performed By: #### M ORP2 ####[facility] [place] [address] BNPon 01-24-2017 BNP 88 pg/mL Normal 0 - 99 [facility] Comment on above: Result Comment: . <1 00 pg/mL - Heart failure [id number] pg/mL - Intermediate probability of acute heart. failure exacerbation. Correlate with clinical. context and patient history. >=300 pg/mL - Heart Failure likely. Correlate with clinical. context and patient history.BNP testing is performed using different [facility]methodology [facility]. Direct result comparisons shouldonly be made within the same method. Performed By: #### M ORP2 ####[facility] [place] [address] CBCon 01-24-2017 Erythrocyte distribution width Auto Ratio (RBC) 22.8 % High 11.5 - 14.5 [facility] Comment on above: Performed By: #### C BCDF ####[facility] [place] [address] Erythrocytes (RBC) 2.50 x10E12/L Low 4.00 - 5.20 [facility] Comment on above: Performed By: #### C BCDF ####[facility] [place] [address] Hematocrit (HCT) 24.1 % Low 36.0 - 46.0 [facility] Comment on above: Performed By: #### C BCDF ####[facility] [place] [address] Hemoglobin mass conc (Bld) 7.4 g/dL Low 12.0 - 16.0 [facility] Comment on above: Performed By: #### C BCDF ####[facility] [place] [address] MCHC mass conc (RBC) 30.7 g/dL Low 32.0 - 36.0 [facility] Comment on above: Performed By: #### C BCDF ####[facility] [place] [address] MCV 96 fL Normal 80 - 100 [facility] Comment on above: Performed By: #### C BCDF ####[facility] [place] [address] Nucleated erythrocytes 0.7 /100 WBC Abnormal 0.0-0.0 [facility] Comment on above: Performed By: #### C BCDF ####[facility] [place] [address] Platelets 362 10*3/uL Normal 150 - 450 [facility] Comment on above: Performed By: #### C BCDF ####[facility] [place] [address] WBC (Leukocytes) 8.2 10*3/uL Normal 4.4 - 11.3 [facility] Comment on above: Performed By: #### C BCDF ####[facility] [place] [address] COAGULATION SCREENon 017 aPTT 34 s Normal 25 - 36 [facility] Comment on above: Result Comment: THE APTT IS NO LONGER USED FOR MONITORING UNFRACTIONATED HEPARIN THERAPY. FOR MONITORING HEPARIN THERAPY, USE THE HEPARIN ASSAY. Performed By: #### M ORP2 ####[facility] [place] [address] INR Coag RelTime (PPP) 1.2 {INR} High 0.9 - 1.1 [facility] Comment on above: Performed By: #### M ORP2 ####[facility] [place] [address] Prothrombin time (PT) Coag time (PPP) 13.2 s High 9.8 - 12.7 [facility] Comment on above: Performed By: #### M ORP2 ####[facility] [place] [address] GLUCOSE-POCTon 01-24-2017 Glucose mass conc 80 mg/dL Normal 74 - 99 [facility] Comment on above: Performed By: #### M ORP2 ####[facility] [place] [address] Glucose mass conc 96 mg/dL Normal 74 - 99 [facility] Comment on above: Performed By: #### M ORP2 ####[facility] [place] [address] HEPARIN ASSAY,UFHon 01-25-20 17 HEPARIN ASSAY,UFH 0.5 IU/mL Normal [facility] Comment on above: Result Comment: The therapeutic reference range for UFH may be either 0.3-0.6 IU/mL or 0.3-0.7 IU/mL based on the clinical setting for anticoagulant therapy and the associated nomogram used. For heparin dosing guidelines based on clinical scenario and Heparin Assay results, please refer to local Pharmacy and the [facility] Guidelines for Anticoagulation therapy available on the [facility] intranet at:https://[facility]/Pharmacy/Pages/[facility]_Guidelines_for_Anticoagu.aspx Performed By: #### C BCDF ####[facility] [place] [address] HEPARIN ASSAY,UFH 0.6 IU/mL Normal [facility] Comment on above: Result Comment: The therapeutic reference range for UFH may be either 0.3-0.6 IU/mL or 0.3-0.7 IU/mL based on the clinical setting for anticoagulant therapy and the associated nomogram used. For heparin dosing guidelines based on clinical scenario and Heparin Assay results, please refer to [facility] and [facility] Guidelines for Anticoagulation therapy available on the [facility] intranet at:https://[facility]/Pharmacy/Pages/[facility]_Guidelines_for_Anticoagu.aspx Performed By: #### C BCDF ####[facility] [place] [address] HEAD WO CONTRASTon NR CT HEAD WO CONTRAST ent Name: LAURA STARK STUDY:CT HEAD WO CONTRAST; 01/24/2017 12:27 pm INDICATION:Signs/Symptoms: encephalopathy. COMPARISON:None. ORDERING CLINICIAN:DUTCH HADDAD TECHNIQUE:Axial CT images images of the head were obtained without intravenouscontrast administration. FINDINGS:There is moderate brain parenchymal volume loss. There are patchy nonspecific white matter changes within the cerebralhemispheres bilaterally which while nonspecific, given the patient'diann, may represent sequelae of small vessel ischemic change.Additional vague foci of hypodensity are identified overlying thebrainstem which while nonspecific may represent sequelae of previoussmall-vessel ischemic change as well. No hyperdense acute intracranial hemorrhage is noted. There is no midline shift. The basilar cisterns are patent. Atherosclerotic calcifications are noted along the carotid siphons. Secretions and mucosal thickening are noted within the left maxillarysinus. Secretions are identified layering within the right sphenoidsinus. There is minimal mucosal thickening within the inferior rightmaxillary sinus and a few scattered ethmoid air cells. There is opacification of the mastoid air cells and middle earcavities bilaterally which may be postobstructive and/or inflammatoryin origin. IMPRESSION:There is moderate brain parenchymal volume loss. There are patchy nonspecific white matter changes within the cerebralhemispheres bilaterally which while nonspecific, given the patient'diann, may represent sequelae of small vessel ischemic change.Additional vague foci of hypodensity are identified overlying thebrainstem which while nonspecific may represent sequelae of previoussmall-vessel ischemic change as well. The study was interpreted at [facility].Electronical ly signed by: ERNIE FERREIRA MD Normal [facility] NR SPINAL PUNCTURE, LUMBAR, DIAGNOSTICon 01-24-2017 NR SPINAL PUNCTURE, LUMBAR, DIAGNOSTIC Name: LAURA STARK STUDY:NR SPINAL PUNCTURE, LUMBAR, DIAGNOSTIC; 01/24/2017 4:50 pm INDICATION:Signs/Symptoms: encephalopathy. COMPARISON:CT of the head dated 01/24/2017 ORDERING CLINICIAN:DUTCH HADDAD TECHNIQUE:After discussion of risks, benefits, and alternatives, oral andwritten informed consent was obtained. The patient was placed inright lateral decubitus position on exam table due to inability totolerate prone positioning. The L3-4 interspace was then marked underfluoroscopy. The patient was then prepped and draped in sterilefashion. Local anesthesia was achieved with 2% Lidocaine solution. A20 gauge spinal needle was then introduced at the L3-L4 level underdirect fluoroscopic guidance until the posterior elements wereencounter. After multiple attempts at repositioning at this level,the needle was unable to be advanced past the posterior elements. Atthis point additional images were taken in order to assist withplanning a second approach. However, due to extensive lumbardegenerative changes, scoliosis, and superimposition of bowel overthe lumbar spine, no areas amenable to accessing the thecal sac wereable to be seen. At this time, the procedure was terminated. Thestylet was then replaced and the spinal needle was removed.Hemostasis was achieved with direct pressure and the area was dressedwith a Band-Aid. The patient tolerated procedure well without anyimmediate or clinically apparent complications. Total fluoroscopytime was 7 min. Should the patient be able to tolerate prone positioning in thefuture, additional attempts may be made under fluoroscopic guidance. FINDINGS:A single periprocedural spot fluoroscopic image was provided forinterpretation. Image quality is such that fine bony detail isobscured. A needle is seen to overlie the posterior elements of L4. IMPRESSION:Attempted fluoroscopic guided lumbar puncture with inability toaccess the thecal sac secondary to the above described factors.Should the patient be able to tolerate prone positioning in thefuture, an additional attempt may be made under fluoroscopic guidance. I, Dr. Veto Dick, supervised and was available throughout thisprocedure as performed by fellow physician Amandeep Marin. This studywas performed and [facility]. I agree with the procedural description and thefindings as stated.Electronically signed by: VETO DICK MD Normal [facility] RENAL FUNCTION PANELon 01-24 Albumin 1.9 g/dL Low 3.4 - 5.0 [facility] Comment on above: Performed By: #### C BCDF ####[facility] [place] [address] Anion gap 9 mmol/L Low 10 - 20 [facility] Comment on above: Performed By: #### C BCDF ####[facility] [place] [address] Bicarbonate (HCO3) 22 mmol/L Normal 21 - 32 [facility] Comment on above: Performed By: #### C BCDF ####[facility] [place] [address] Calcium 8.5 mg/dL Low 8.6 - 10.6 [facility] Comment on above: Performed By: #### C BCDF ####[facility] [place] [address] Chloride 113 mmol/L High 98 - 107 [facility] Comment on above: Performed By: #### C BCDF ####[facility] [place] [address] Creatinine 1.20 mg/dL High 0.50 - 1.05 [facility] Comment on above: Performed By: #### C BCDF ####[facility] [place] [address] eGFR (non-black) 45 mL/min/{1.73_m2} Abnormal >60 [facility] Comment on above: Performed By: #### C BCDF ####[facility] [place] [address] eGFR (non-black) 54 mL/min/{1.73_m2} Abnormal >60 [facility] Comment on above: Result Comment: CALC ULATIONS OF ESTIMATED GFR ARE PERFORMED USING THE MDRD STUDY EQUATION FOR THE IDMS-TRACEABLE CREATININE METHODS. CLIN CHEM 2007;53:766-72 Performed By: #### C BCDF ####[facility] [place] [address] Glucose mass conc 105 mg/dL High 74 - 99 [facility] Comment on above: Performed By: #### C BCDF ####[facility] [place] [address] Phosphate 3.2 mg/dL Normal 2.5 - 4.9 [facility] Comment on above: Result Comment: The performance characteristics of phosphorus testing in heparinized plasma have been validated by the individual laboratory site where testing is performed. Testing on heparinized plasma is not approved by the FDA; however, such approval is not necessary. Performed By: #### C BCDF ####[facility] [place] [address] Potassium molar conc 3.9 mmol/L Normal 3.5 - 5.3 [facility] Comment on above: Performed By: #### C BCDF ####[facility] [place] [address] Sodium 140 mmol/L Normal 136 - 145 [facility] Comment on above: Performed By: #### C BCDF ####[facility] [place] [address] Urea nitrogen 34 mg/dL High 6 - 23 [facility] Comment on above: Performed By: #### C BCDF ####[facility] [place] [address] VZV DNA BY PCR, QUALon 01-24 Lab Specimen Source Cerebral spinal fluid Normal [facility] Comment on above: Order Comment: TEST VZV DNA BY PCR, QUAL WAS CANCELLED, 01/27/2017 13:07 NO SPECIMENRECEIVED IN LAB. Performed By: #### R ENAL ####[facility] [place] [address] Order Comment: TEST TOTAL PROTEIN AND GLUCOSE, CSF WAS CANCELLED, 01/27/2017 13:07 NOSPECIMEN RECEIVED IN LAB. C-REACTIVE PROTEINon 017 C reactive protein (CRP) 8.62 mg/dL Abnormal [facility] Comment on above: Result Comment: REF VALUE< 1.00 Performed By: #### C BCDF ####[facility] [place] [address] CBCon 01-23-2017 Erythrocyte distribution width Auto Ratio (RBC) 23.5 % High 11.5 - 14.5 [facility] Comment on above: Performed By: #### C MP ####[facility] [place] [address] Erythrocytes (RBC) 2.62 x10E12/L Low 4.00 - 5.20 [facility] Comment on above: Performed By: #### C MP ####[facility] [place] [address] Hematocrit (HCT) 25.7 % Low 36.0 - 46.0 [facility] Comment on above: Performed By: #### C MP ####[facility] [place] [address] Hemoglobin mass conc (Bld) 7.6 g/dL Low 12.0 - 16.0 [facility] Comment on above: Performed By: #### C MP ####[facility] [place] [address] MCHC mass conc (RBC) 29.6 g/dL Low 32.0 - 36.0 [facility] Comment on above: Performed By: #### C MP ####[facility] [place] [address] MCV 98 fL Normal 80 - 100 [facility] Comment on above: Performed By: #### C MP ####[facility] [place] [address] Nucleated erythrocytes 1.2 /100 WBC Abnormal 0.0-0.0 [facility] Comment on above: Performed By: #### C MP ####[facility] [place] [address] Platelets 448 10*3/uL Normal 150 - 450 [facility] Comment on above: Performed By: #### C MP ####[facility] [place] [address] WBC (Leukocytes) 9.2 10*3/uL Normal 4.4 - 11.3 [facility] Comment on above: Performed By: #### C MP ####[facility] [place] [address] ESR-WESTERGRENon 01-23-2017 ESR-WESTERGREN >140 High 0 - 30 [facility] Comment on above: Performed By: #### C BCDF ####[facility] [place] [address] GLUCOSE-POCTon 01-23-2017 Glucose mass conc 240 mg/dL High 74 - 99 [facility] Comment on above: Performed By: #### C BCDF ####[facility] [place] [address] Glucose mass conc 159 mg/dL High 74 - 99 [facility] Comment on above: Performed By: #### C BCDF ####[facility] [place] [address] Glucose mass conc 134 mg/dL High 74 - 99 [facility] Comment on above: Performed By: #### C MP ####[facility] [place] [address] Glucose mass conc 96 mg/dL Normal 74 - 99 [facility] Comment on above: Performed By: #### C MP ####[facility] [place] [address] Glucose mass conc 107 mg/dL High 74 - 99 [facility] Comment on above: Performed By: #### C MP ####[facility] [place] [address] HEPARIN ASSAY,UFHon 01-24-20 17 HEPARIN ASSAY,UFH 0.8 IU/mL Normal [facility] Comment on above: Result Comment: The therapeutic reference range for UFH may be either 0.3-0.6 IU/mL or 0.3-0.7 IU/mL based on the clinical setting for anticoagulant therapy and the associated nomogram used. For heparin dosing guidelines based on clinical scenario and Heparin Assay results, please refer to local Pharmacy and [facility] Guidelines for Anticoagulation therapy available on the [facility] intranet at:[email or web address]_Guidelines_for_Anticoagu.aspx Performed By: #### C BCDF ####[facility] [place] [address] HEPARIN ASSAY,UFH 1.1 IU/mL Abnormal [facility] Comment on above: Order Comment: Emily VALLE to DIANN HARRY, 01/23/2017 14:44 Result Comment: The therapeutic reference range for UFH may be either 0.3-0.6 IU/mL or 0.3-0.7 IU/mL based on the clinical setting for anticoagulant therapy and the associated nomogram used. For heparin dosing guidelines based on clinical scenario and Heparin Assay results, please refer to local Pharmacy and [facility] Guidelines for Anticoagulation therapy available on the [facility] intranet at:[email or web address]_Guidelines_for_Anticoagu.aspx Called- RB to DIANN PARKZACHARY, 01/23/2017 14:44 Performed By: #### C BCDF ####[facility] [place] [address] HEPARIN ASSAY,UFH 1.0 IU/mL Normal [facility] Comment on above: Result Comment: The therapeutic reference range for UFH may be either 0.3-0.6 IU/mL or 0.3-0.7 IU/mL based on the clinical setting for anticoagulant therapy and the associated nomogram used. For heparin dosing guidelines based on clinical scenario and Heparin Assay results, please refer to local Pharmacy and the [facility] Guidelines for Anticoagulation therapy available on the [facility] intranet at:[email or web address]/Pharmacy/Pages/[facility]_Guidelines_for_Anticoagu.aspx Performed By: #### C MP ####[facility] [place] [address] HEPARIN ASSAY,UFH 0.7 IU/mL Normal [facility] Comment on above: Result Comment: The therapeutic reference range for UFH may be either 0.3-0.6 IU/mL or 0.3-0.7 IU/mL based on the clinical setting for anticoagulant therapy and the associated nomogram used. For heparin dosing guidelines based on clinical scenario and Heparin Assay results, please refer to local Pharmacy and the [facility] Guidelines for Anticoagulation therapy available on the [facility] intranet at:[email or web address]/Pharmacy/[email or web address]_Guidelines_for_Anticoagu.aspx Performed By: #### C MP ####[facility] [place] [address] HEPARIN ASSAY,UFH 1.1 IU/mL Abnormal [facility] Comment on above: Order Comment: DALILA TO-RP BACK BY GERMAINE CUADRA, 01/23/2017 01:02 Result Comment: The therapeutic reference range for UFH may be either 0.3-0.6 IU/mL or 0.3-0.7 IU/mL based on the clinical setting for anticoagulant therapy and the associated nomogram used. For heparin dosing guidelines based on clinical scenario and Heparin Assay results, please refer to local Pharmacy and the [facility] Guidelines for Anticoagulation therapy available on the [facility] intranet at:[email or web address]_Guidelines_for_[email or web address] TO-RP BACK BY GERMAINE CUADRA, 01/23/2017 01:02 Performed By: #### C MP ####[facility] [place] [address] MAGNESIUMon 01-23-2017 Magnesium 1.99 mg/dL Normal 1.60 - 2.40 [facility] Comment on above: Performed By: #### C MP ####[facility] [place] [address] RENAL FUNCTION PANELon 01-23 Albumin 2.0 g/dL Low 3.4 - 5.0 [facility] Comment on above: Performed By: #### C MP ####[facility] [place] [address] Anion gap 12 mmol/L Normal 10 - 20 [facility] Comment on above: Performed By: #### C MP ####[facility] [place] [address] Bicarbonate (HCO3) 20 mmol/L Low 21 - 32 [facility] Comment on above: Performed By: #### C MP ####[facility] [place] [address] Calcium 9.0 mg/dL Normal 8.6 - 10.6 [facility] Comment on above: Performed By: #### C MP ####[facility] [place] [address] Chloride 113 mmol/L High 98 - 107 [facility] Comment on above: Performed By: #### C MP ####[facility] [place] [address] Creatinine 1.29 mg/dL High 0.50 - 1.05 [facility] Comment on above: Performed By: #### C MP ####[facility] [place] [address] eGFR (non-black) 51 mL/min/{1.73_m2} Abnormal >60 [facility] Comment on above: Result Comment: CALC ULATIONS OF ESTIMATED GFR ARE PERFORMED USING THE MDRD STUDY EQUATION FOR THE IDMS-TRACEABLE CREATININE METHODS. CLIN CHEM 2007;53:766-72 Performed By: #### C MP ####[facility] [place] [address] eGFR (non-black) 42 mL/min/{1.73_m2} Abnormal >60 [facility] Comment on above: Performed By: #### C MP ####[facility] [place] [address] Glucose mass conc 75 mg/dL Normal 74 - 99 [facility] Comment on above: Performed By: #### C MP ####[facility] [place] [address] Phosphate 3.1 mg/dL Normal 2.5 - 4.9 [facility] Comment on above: Result Comment: The performance characteristics of phosphorus testing in heparinized plasma have been validated by the individual laboratory site where testing is performed. Testing on heparinized plasma is not approved by the FDA; however, such approval is not necessary. Performed By: #### C MP ####[facility] [place] [address] Potassium molar conc 4.4 mmol/L Normal 3.5 - 5.3 [facility] Comment on above: Performed By: #### C MP ####[facility] [place] [address] Sodium 141 mmol/L Normal 136 - 145 [facility] Comment on above: Performed By: #### C MP ####[facility] [place] [address] Urea nitrogen 38 mg/dL High 6 - 23 [facility] Comment on above: Performed By: #### C MP ####[facility] [place] [address] CHEST WO CONTRASTon Hematocrit (HCT) Name: LAURA STARK STUDY:TH CT CHEST WO CONTRAST; 01/23/2017 6:12 pm INDICATION:Signs/Symptoms: SOB, asthma, PNA. COMPARISON:None. ORDERING CLINICIAN:MAE MCFARLANE TECHNIQUE:Helical data acquisition of the chest was obtained without IVcontrast material. Images were reformatted in axial, coronal, andsagittal planes. This study is partially limited byrespiratory/motion artifact. FINDINGS:LUNGS AND AIRWAYS:The trachea and central airways are patent. No endobronchial lesion. Diffuse interstitial prominence and patchy consolidations along withsurrounding ground-glass opacification are noted, but mostprominently within the upper lung manzano, and most likely representspneumonitis although vasculitis is not excluded. The largest of thesefocal consolidations is seen within the right lower lobe (best seenon image number 121 of [phone]), and early cavitation cannot be excludedgiven the fact that a focus of emphysema is present within this focalconsolidation. Small bibasilar pleural effusions are seen, withdependent atelectasis. MEDIASTINUM AND VERO, LOWER NECK AND AXILLA:The visualized thyroid gland is within normal limits. Multiple prominent thoracic lymph nodes are noted, but are notenlarged by CT criteria, and are likely reactive in nature. Esophagus appears within normal limits as seen. HEART AND VESSELS:Tip of right-sided central venous catheter terminates within thecavoatrial junction. The thoracic aorta is of normal course and caliber with mild vascularcalcifications. Main pulmonary artery and its branches are normal in caliber. Mild coronary artery calcifications are seen. The study is notoptimized for evaluation of coronary arteries. The cardiac chambers are not enlarged. Lipomatous hypertrophy of theinteratrial septum is seen. No evidence of pericardial effusion. UPPER ABDOMEN:The visualized subdiaphragmatic structures demonstrate no remarkablefindings. Retained oral contrast is seen within the lumen of thebowel. CHEST WALL AND OSSEOUS STRUCTURES:There are no suspicious osseous lesions. Multilevel degenerativechanges are present. Patient status post right total shoulderarthroplasty. IMPRESSION:1. Diffuse interstitial prominence and patchy consolidations alongwith surrounding ground-glass opacification with a upper lobepredominance, and most likely represents pneumonitis, although avasculitis cannot be excluded given history of asthma.2. Questionable development of an early cavitation within the rightlower lobe.3. Small bibasilar pleural effusions with dependent atelectasis.4. Multiple prominent thoracic lymph nodes, but are not enlarged byCT criteria, are likely reactive in nature.I personally reviewed the images/study and I agree with the findingsas stated. This study was interpreted at [facility], [place], [place].Electronically signed by: Kain DUBON MD Normal [facility] C-REACTIVE PROTEINon 017 C reactive protein (CRP) 5.24 mg/dL Abnormal [facility] Comment on above: Result Comment: REF VALUE< 1.00 Performed By: #### C RP ####[facility] [place] [address] CBC AND DIFFERENTIALon 01-22 % AUTOMATED IMMATURE GRAN 11.6 % High 0.0 - 0.9 [facility] Comment on above: Result Comment: Perc ent differential counts (%) should be interpreted in the context of the absolute cell counts (cells/L). Performed By: #### C OAGS ####[facility] [place] [address] DIFFERENTIAL SEE MANUAL DIFF Normal [facility] Comment on above: Performed By: #### C OAGS ####[facility] [place] [address] Erythrocyte distribution width Auto Ratio (RBC) 23.7 % High 11.5 - 14.5 [facility] Comment on above: Performed By: #### C OAGS ####[facility] [place] [address] Erythrocytes (RBC) 2.64 x10E12/L Low 4.00 - 5.20 [facility] Comment on above: Performed By: #### C OAGS ####[facility] [place] [address] Hematocrit (HCT) 25.9 % Low 36.0 - 46.0 [facility] Comment on above: Performed By: #### C OAGS ####[facility] [place] [address] Hemoglobin mass conc (Bld) 7.8 g/dL Low 12.0 - 16.0 [facility] Comment on above: Performed By: #### C OAGS ####[facility] [place] [address] MCHC mass conc (RBC) 30.1 g/dL Low 32.0 - 36.0 [facility] Comment on above: Performed By: #### C OAGS ####[facility] [place] [address] MCV 98 fL Normal 80 - 100 [facility] Comment on above: Performed By: #### C OAGS ####[facility] [place] [address] Nucleated erythrocytes 1.9 /100 WBC Abnormal 0.0-0.0 [facility] Comment on above: Performed By: #### C OAGS ####[facility] [place] [address] Platelets 424 10*3/uL Normal 150 - 450 [facility] Comment on above: Performed By: #### C OAGS ####[facility] [place] [address] WBC (Leukocytes) 8.7 10*3/uL Normal 4.4 - 11.3 [facility] Comment on above: Performed By: #### C OAGS ####[facility] [place] [address] % AUTOMATED IMMATURE GRAN 12.9 % High 0.0 - 0.9 [facility] Comment on above: Result Comment: Perc ent differential counts (%) should be interpreted in the context of the absolute cell counts (cells/L). Performed By: #### C BCDF ####[facility] [place] [address] DIFFERENTIAL SEE MANUAL DIFF Normal [facility] Comment on above: Performed By: #### C BCDF ####[facility] [place] [address] Erythrocyte distribution width Auto Ratio (RBC) 23.3 % High 11.5 - 14.5 [facility] Comment on above: Performed By: #### C BCDF ####[facility] [place] [address] Erythrocytes (RBC) 2.67 x10E12/L Low 4.00 - 5.20 [facility] Comment on above: Performed By: #### C BCDF ####[facility] [place] [address] Hematocrit (HCT) 26.3 % Low 36.0 - 46.0 [facility] Comment on above: Performed By: #### C BCDF ####[facility] [place] [address] Hemoglobin mass conc (Bld) 8.1 g/dL Low 12.0 - 16.0 [facility] Comment on above: Performed By: #### C BCDF ####[facility] [place] [address] MCHC mass conc (RBC) 30.8 g/dL Low 32.0 - 36.0 [facility] Comment on above: Performed By: #### C BCDF ####[facility] [place] [address] MCV 99 fL Normal 80 - 100 [facility] Comment on above: Performed By: #### C BCDF ####[facility] [place] [address] Nucleated erythrocytes 1.8 /100 WBC Abnormal 0.0-0.0 [facility] Comment on above: Performed By: #### C BCDF ####[facility] [place] [address] Platelets 394 10*3/uL Normal 150 - 450 [facility] Comment on above: Performed By: #### C BCDF ####[facility] [place] [address] WBC (Leukocytes) 7.7 10*3/uL Normal 4.4 - 11.3 [facility] Comment on above: Performed By: #### C BCDF ####[facility] [place] [address] COAGULATION SCREENon 017 aPTT 25 s Normal 25 - 36 [facility] Comment on above: Result Comment: THE APTT IS NO LONGER USED FOR MONITORING UNFRACTIONATED HEPARIN THERAPY. FOR MONITORING HEPARIN THERAPY, USE THE HEPARIN ASSAY. Performed By: #### C OAGS ####[facility] [place] [address] INR Coag RelTime (PPP) 1.3 {INR} High 0.9 - 1.1 [facility] Comment on above: Performed By: #### C OAGS ####[facility] [place] [address] Prothrombin time (PT) Coag time (PPP) 14.3 s High 9.8 - 12.7 [facility] Comment on above: Performed By: #### C OAGS ####[facility] [place] [address] aPTT 27 s Normal 25 - 36 [facility] Comment on above: Result Comment: THE APTT IS NO LONGER USED FOR MONITORING UNFRACTIONATED HEPARIN THERAPY. FOR MONITORING HEPARIN THERAPY, USE THE HEPARIN ASSAY. Performed By: #### C OAGS ####[facility] [place] [address] INR Coag RelTime (PPP) 1.3 {INR} High 0.9 - 1.1 [facility] Comment on above: Performed By: #### C OAGS ####[facility] [place] [address] Prothrombin time (PT) Coag time (PPP) 14.9 s High 9.8 - 12.7 [facility] Comment on above: Performed By: #### C OAGS ####[facility] [place] [address] COMPREHENSIVE PANELon 2016 Alanine aminotransferase (ALT) 33 U/L Normal 7 - 45 [facility] Comment on above: Result Comment: Sena ents treated with Sulfasalazine may generate falsely decreased results for ALT. Performed By: #### C MP ####[facility] [place] [address] Albumin 1.9 g/dL Low 3.4 - 5.0 [facility] Comment on above: Performed By: #### C MP ####[facility] [place] [address] Alkaline phosphatase (ALP) 108 U/L Normal 33 - 136 [facility] Comment on above: Performed By: #### C MP ####[facility] [place] [address] Anion gap 12 mmol/L Normal 10 - 20 [facility] Comment on above: Performed By: #### C MP ####[facility] [place] [address] Aspartate aminotransferase (AST) 17 U/L Normal 9 - 39 [facility] Comment on above: Performed By: #### C MP ####[facility] [place] [address] Bicarbonate (HCO3) 20 mmol/L Low 21 - 32 [facility] Comment on above: Performed By: #### C MP ####[facility] [place] [address] Bilirubin (total) 0.3 mg/dL Normal 0.0 - 1.2 [facility] Comment on above: Performed By: #### C MP ####[facility] [place] [address] Calcium 9.1 mg/dL Normal 8.6 - 10.6 [facility] Comment on above: Performed By: #### C MP ####[facility] [place] [address] Chloride 118 mmol/L High 98 - 107 [facility] Comment on above: Performed By: #### C MP ####[facility] [place] [address] Creatinine 1.22 mg/dL High 0.50 - 1.05 [facility] Comment on above: Performed By: #### C MP ####[facility] [place] [address] eGFR (non-black) 45 mL/min/{1.73_m2} Abnormal >60 [facility] Comment on above: Performed By: #### C MP ####[facility] [place] [address] eGFR (non-black) 54 mL/min/{1.73_m2} Abnormal >60 [facility] Comment on above: Result Comment: CALC ULATIONS OF ESTIMATED GFR ARE PERFORMED USING THE MDRD STUDY EQUATION FOR THE IDMS-TRACEABLE CREATININE METHODS. CLIN CHEM 2007;53:766-72 Performed By: #### C MP ####[facility] [place] [address] Glucose mass conc 75 mg/dL Normal 74 - 99 [facility] Comment on above: Performed By: #### C MP ####[facility] [place] [address] Potassium molar conc 3.8 mmol/L Normal 3.5 - 5.3 [facility] Comment on above: Performed By: #### C MP ####[facility] [place] [address] Protein 5.6 g/dL Low 6.4 - 8.2 [facility] Comment on above: Performed By: #### C MP ####[facility] [place] [address] Sodium 146 mmol/L High 136 - 145 [facility] Comment on above: Performed By: #### C MP ####[facility] [place] [address] Urea nitrogen 42 mg/dL High 6 - 23 [facility] Comment on above: Performed By: #### C MP ####[facility] [place] [address] CORTISOL, A.M.on 01-22-2017 CORTISOL, A.M. 20.0 ug/dL Normal 5.0 - 20.0 [facility] Comment on above: Performed By: #### C RP ####[facility] [place] [address] CREATINE KINASEon 01-22-2017 Creatine kinase (CK) 21 U/L Normal 0 - 215 [facility] Comment on above: Performed By: #### C K ####[facility] [place] [address] ELECTROLYTE, URINE SPOTon OSMOLALITY,URINE SPOT 480 mOsm/kg Normal 200 - 1200 [facility] Comment on above: Performed By: #### C RP ####[facility] [place] [address] CHLORIDE,URINE SPOT 124 mmol/L Normal [facility] Comment on above: Performed By: #### C RP ####[facility] [place] [address] CHLORIDE/CREAT RATIO 187 mmol/g Creat Normal [facility] Comment on above: Performed By: #### C RP ####[facility] [place] [address] CREATININE,URINE 66.3 mg/dL Normal [facility] Comment on above: Performed By: #### C RP ####[facility] [place] [address] POT/CREAT RATIO 56 mmol/g Creat Normal [facility] Comment on above: Performed By: #### C RP ####[facility] [place] [address] POTASSIUM,URINE SPOT 37 mmol/L Normal [facility] Comment on above: Performed By: #### C RP ####[facility] [place] [address] SODIUM,URINE SPOT 86 mmol/L Normal [facility] Comment on above: Performed By: #### C RP ####[facility] [place] [address] SODIUM/CREAT RATIO 130 mmol/g Creat Normal [facility] Comment on above: Performed By: #### C RP ####[facility] [place] [address] UREA NITROGEN,URINE 546 mg/dL Normal [facility] Comment on above: Performed By: #### C RP ####[facility] [place] [address] UREA NITROGEN/CREAT RATIO 8.2 g/g Creat Normal [facility] Comment on above: Performed By: #### C RP ####[facility] [place] [address] EMR ADDONon 01-22-2017 ADDON CONFIRMATION REQUEST REC'D Normal [facility] Comment on above: Performed By: #### C OAGS ####[facility] [place] [address] ESR-WESTERGRENon 01-22-2017 ESR-WESTERGREN >140 High 0 - 30 [facility] Comment on above: Performed By: #### E SRWS ####[facility] [place] [address] FERRITINon 01-22-2017 FERRITIN 457 ug/L High 8 - 150 [facility] Comment on above: Performed By: #### C RP ####[facility] [place] [address] GLUCOSE-POCTon 01-22-2017 Glucose mass conc 137 mg/dL High 74 - 99 [facility] Comment on above: Performed By: #### C RP ####[facility] [place] [address] Glucose mass conc 105 mg/dL High 74 - 99 [facility] Comment on above: Performed By: #### C RP ####[facility] [place] [address] Glucose mass conc 83 mg/dL Normal 74 - 99 [facility] Comment on above: Performed By: #### C RP ####[facility] [place] [address] Glucose mass conc 101 mg/dL High 74 - 99 [facility] Comment on above: Performed By: #### C OAGS ####[facility] [place] [address] Glucose mass conc 80 mg/dL Normal 74 - 99 [facility] Comment on above: Performed By: #### C OAGS ####[facility] [place] [address] HEMOGLOBIN A1Con 01-22-2017 Glucose mass conc 146 mg/dL Normal [facility] Comment on above: Performed By: #### C RP ####[facility] [place] [address] Hemoglobin A1c/Hemoglobin.total mass fraction (Bld) 6.7 % Normal [facility] Comment on above: Result Comment: Diag nosis of Diabetes-Adults Non-Diabetic: < or = 5.6% Increased risk for developing diabetes: 5.7-6.4% Diagnostic of diabetes: > or = 6.5%. Monitoring of Diabetes Age (y) Therapeutic Goal (%) Adults: >18 <7.0 Pediatrics: 13-18 <7.5 7-12 <8.0 0- 6 7.5-8.5 [employer]. Diabetes Care 33(S1), Feb 2009. Performed By: #### C RP ####[facility] [place] [address] HEPARIN ASSAY,UFHon 01-23-20 17 HEPARIN ASSAY,UFH 1.9 IU/mL Abnormal [facility] Comment on above: Order Comment: DIAZ D HEPARIN TO GERMAINE CARRASCO RN, 01/22/2017 22:01 Result Comment: The therapeutic reference range for UFH may be either 0.3-0.6 IU/mL or 0.3-0.7 IU/mL based on the clinical setting for anticoagulant therapy and the associated nomogram used. For heparin dosing guidelines based on clinical scenario and Heparin Assay results, please refer to local Pharmacy and the [facility] Guidelines for Anticoagulation therapy available on the [facility] intranet at:[email or web address] HEPARIN TO GERMAINE CARRASCO RN, 01/22/2017 22:01 Performed By: #### C RP ####[facility] [place] [address] HEPARIN ASSAY,UFH >2.0 Abnormal [facility] Comment on above: Order Comment: EMILY Locke TO DIANN MCDONALD RN, 01/22/2017 22:10 Result Comment: The therapeutic reference range for UFH may be either 0.3-0.6 IU/mL or 0.3-0.7 IU/mL based on the clinical setting for anticoagulant therapy and the associated nomogram used. For heparin dosing guidelines based on clinical scenario and Heparin Assay results, please refer to local Pharmacy and the [facility] Guidelines for Anticoagulation therapy available on the [facility] intranet at:[email or web address] TO DIANN MCDONALD RN, 01/22/2017 22:10 Performed By: #### C RP ####[place] [id number] [place] [address] HEPARIN ASSAY,UFH >2.0 Abnormal [facility] Comment on above: Order Comment: EMILY Locke HEPARIN RESULT -RB TO DIANN MCDONALD RN, 01/22/2017 18:44 Result Comment: The therapeutic reference range for UFH may be either 0.3-0.6 IU/mL or 0.3-0.7 IU/mL based on the clinical setting for anticoagulant therapy and the associated nomogram used. For heparin dosing guidelines based on clinical scenario and Heparin Assay results, please refer to local Pharmacy and the [facility] Guidelines for Anticoagulation therapy available on the [facility] intranet at:[email or web address] HEPARIN RESULT -RB TO DIANN MCDONALD RN, 01/22/2017 18:44 Performed By: #### C RP ####[facility] [place] [address] IRON + TIBCon 01-22-2017 % SATURATION 31 % Normal 25 - 45 [facility] Comment on above: Performed By: #### C OAGS ####[facility] [place] [address] Iron 46 ug/dL Normal 35 - 150 [facility] Comment on above: Performed By: #### C OAGS ####[facility] [place] [address] TIBC 149 ug/dL Low 240 - 445 [facility] Comment on above: Performed By: #### C OAGS ####[facility] [place] [address] MANUAL DIFFERENTIALon 2016 % BAND NEUTROPHIL 11.0 % High 0.0 - 5.0 [facility] Comment on above: Performed By: #### C OAGS ####[facility] [place] [address] % METAMYELOCYTE 4.0 % Abnormal 0.0 - 0.0 [facility] Comment on above: Performed By: #### C OAGS ####[place] [id number] [place] [address] % SEG NEUTROPHIL 66.0 % Normal 40.0 - 80.0 [facility] Comment on above: Result Comment: Perc ent differential counts (%) should be interpreted in the context of the absolute cell counts (cells/L). Performed By: #### C OAGS ####[facility] [place] [address] ANC 6.70 X10E9/L Normal [facility] Comment on above: Performed By: #### C OAGS ####[facility] [place] [address] BAND NEUTROPHIL 0.96 X10E9/L High 0.00 - 0.70 [facility] Comment on above: Performed By: #### C OAGS ####[facility] [place] [address] Basophils/100 WBC Auto (Bld) 0.00 x10E9/L Normal 0.00 - 0.10 [facility] Comment on above: Performed By: #### C OAGS ####[facility] [place] [address] Basophils/100 WBC Auto (Bld) 0.0 % Normal 0.0 - 2.0 [facility] Comment on above: Performed By: #### C OAGS ####[facility] [place] [address] Eosinophils 0.26 10*3/uL Normal 0.00 - 0.70 [facility] Comment on above: Performed By: #### C OAGS ####[facility] [place] [address] Eosinophils/100 leukocytes 3.0 % Normal 0.0 - 6.0 [facility] Comment on above: Performed By: #### C OAGS ####[facility] [place] [address] Lymphocytes 0.09 10*3/uL Normal 0.00 - 0.50 [facility] Comment on above: Performed By: #### C OAGS ####[facility] [place] [address] Lymphocytes 0.70 10*3/uL Low 1.20 - 4.80 [facility] Comment on above: Performed By: #### C OAGS ####[facility] [place] [address] Lymphocytes/100 leukocytes 1.0 % Normal 0.0 - 2.0 [facility] Comment on above: Performed By: #### C OAGS ####[facility] [place] [address] Lymphocytes/100 leukocytes 8.0 % Low 13.0 - 44.0 [facility] Comment on above: Performed By: #### C OAGS ####[facility] [place] [address] Metamyelocytes/100 leukocytes 0.35 x10E9/L Abnormal 0.00 - 0.00 [facility] Comment on above: Performed By: #### C OAGS ####[facility] [place] [address] Monocytes 0.61 10*3/uL Normal 0.10 - 1.00 [facility] Comment on above: Performed By: #### C OAGS ####[facility] [place] [address] Monocytes/100 leukocytes 7.0 % Normal 2.0 - 10.0 [facility] Comment on above: Performed By: #### C OAGS ####[facility] [place] [address] SEG NEUTROPHIL 5.74 X10E9/L Normal 1.20 - 7.00 [facility] Comment on above: Performed By: #### C OAGS ####[facility] [place] [address] % METAMYELOCYTE 4.0 % Abnormal 0.0 - 0.0 [facility] Comment on above: Performed By: #### M DIFF ####[facility] [place] [address] % MYELOCYTE 6.0 % Abnormal 0.0 - 0.0 [facility] Comment on above: Performed By: #### M DIFF ####[facility] [place] [address] % SEG NEUTROPHIL 79.0 % Normal 40.0 - 80.0 [facility] Comment on above: Result Comment: Perc ent differential counts (%) should be interpreted in the context of the absolute cell counts (cells/L). Performed By: #### M DIFF ####[facility] [place] [address] ANC 6.08 X10E9/L Normal [facility] Comment on above: Performed By: #### M DIFF ####[facility] [place] [address] Basophils/100 WBC Auto (Bld) 0.0 % Normal 0.0 - 2.0 [facility] Comment on above: Performed By: #### M DIFF ####[facility] [place] [address] Basophils/100 WBC Auto (Bld) 0.00 x10E9/L Normal 0.00 - 0.10 [facility] Comment on above: Performed By: #### M DIFF ####[facility] [place] [address] Eosinophils 0.15 10*3/uL Normal 0.00 - 0.70 [facility] Comment on above: Performed By: #### M DIFF ####[facility] [place] [address] Eosinophils/100 leukocytes 2.0 % Normal 0.0 - 6.0 [facility] Comment on above: Performed By: #### M DIFF ####[facility] [place] [address] Lymphocytes 0.46 10*3/uL Low 1.20 - 4.80 [facility] Comment on above: Performed By: #### M DIFF ####[facility] [place] [address] Lymphocytes/100 leukocytes 6.0 % Low 13.0 - 44.0 [facility] Comment on above: Performed By: #### M DIFF ####[facility] [place] [address] Metamyelocytes/100 leukocytes 0.31 x10E9/L Abnormal 0.00 - 0.00 [facility] Comment on above: Performed By: #### M DIFF ####[facility] [place] [address] Monocytes 0.23 10*3/uL Normal 0.10 - 1.00 [facility] Comment on above: Performed By: #### M DIFF ####[facility] [place] [address] Monocytes/100 leukocytes 3.0 % Normal 2.0 - 10.0 [facility] Comment on above: Performed By: #### M DIFF ####[facility] [place] [address] MYELOCYTE 0.46 x10E9/L Abnormal 0.00 - 0.00 [facility] Comment on above: Performed By: #### M DIFF ####[facility] [place] [address] SEG NEUTROPHIL 6.08 X10E9/L Normal 1.20 - 7.00 [facility] Comment on above: Performed By: #### M DIFF ####[facility] [place] [address] RED CELL MORPHOLOGYon 2016 Erythrocyte morphology See Below Normal [facility] Comment on above: Performed By: #### C OAGS ####[facility] [place] [address] OVALOCYTES Few Normal [facility] Comment on above: Performed By: #### C OAGS ####[facility] [place] [address] POLYCHROMASIA Mild Normal [facility] Comment on above: Performed By: #### C OAGS ####[facility] [place] [address] Erythrocyte morphology See Below Normal [facility] Comment on above: Performed By: #### M ORP2 ####[facility] [place] [address] OVALOCYTES Few Normal [facility] Comment on above: Performed By: #### M ORP2 ####[facility] [place] [address] POLYCHROMASIA Mild Normal [facility] Comment on above: Performed By: #### M ORP2 ####[facility] [place] [address] TEARDROP CELLS Few Normal [facility] Comment on above: Performed By: #### M ORP2 ####[facility] [place] [address] RENAL FUNCTION PANELon 01-22 Albumin 1.9 g/dL Low 3.4 - 5.0 [facility] Comment on above: Performed By: #### R ENAL ####[facility] [place] [address] Anion gap 13 mmol/L Normal 10 - 20 [facility] Comment on above: Performed By: #### R ENAL ####[facility] [place] [address] Bicarbonate (HCO3) 19 mmol/L Low 21 - 32 [facility] Comment on above: Performed By: #### R ENAL ####[facility] [place] [address] Calcium 8.6 mg/dL Normal 8.6 - 10.6 [facility] Comment on above: Performed By: #### R ENAL ####[facility] [place] [address] Chloride 115 mmol/L High 98 - 107 [facility] Comment on above: Performed By: #### R ENAL ####[facility] [place] [address] Creatinine 1.16 mg/dL High 0.50 - 1.05 [facility] Comment on above: Performed By: #### R ENAL ####[facility] [place] [address] eGFR (non-black) 47 mL/min/{1.73_m2} Abnormal >60 [facility] Comment on above: Performed By: #### R ENAL ####[facility] [place] [address] eGFR (non-black) 57 mL/min/{1.73_m2} Abnormal >60 [facility] Comment on above: Result Comment: CALC ULATIONS OF ESTIMATED GFR ARE PERFORMED USING THE MDRD STUDY EQUATION FOR THE IDMS-TRACEABLE CREATININE METHODS. CLIN CHEM 2007;53:766-72 Performed By: #### R ENAL ####[facility] [place] [address] Glucose mass conc 64 mg/dL Low 74 - 99 [facility] Comment on above: Performed By: #### R ENAL ####[facility] [place] [address] Phosphate 2.2 mg/dL Low 2.5 - 4.9 [facility] Comment on above: Result Comment: The performance characteristics of phosphorus testing in heparinized plasma have been validated by the individual laboratory site where testing is performed. Testing on heparinized plasma is not approved by the FDA; however, such approval is not necessary. Performed By: #### R ENAL ####[facility] [place] [address] Potassium molar conc 4.1 mmol/L Normal 3.5 - 5.3 [facility] Comment on above: Performed By: #### R ENAL ####[facility] [place] [address] Sodium 143 mmol/L Normal 136 - 145 [facility] Comment on above: Performed By: #### R ENAL ####[facility] [place] [address] Urea nitrogen 39 mg/dL High 6 - 23 [facility] Comment on above: Performed By: #### R ENAL ####[facility] [place] [address] TH CHEST 1 VIEWon 01-22-2017 TH CHEST 1 VIEW Name: LAURA STARK STUDY:TH CHEST 1 VIEW; 01/22/2017 2:40 pm INDICATION:Signs/Symptoms: dyspnea. COMPARISON:None ORDERING CLINICIAN:YOLY MARTIN FINDINGS:Right PICC is terminating in mid to distal SVC.Study is limited dueto motion artifact. The cardiac silhouette size is slightly enlarged. Patchy airspaceopacity in bilateral lungs. Cannot exclude small bibasilar pleuraleffusion. No sizable pneumothorax. No acute osseous abnormality. IMPRESSION:1. Limited study due to motion artifact.2. Suggestion of patchy airspace opacity in bilateral lungs which maybe due to pulmonary edema versus multifocal pneumonitis/pneumonia inappropriate clinical setting.3. Suggestion of small bibasilar pleural effusion . Electronically signed by: MEEK LONG MD Normal [facility] THYROXINE,FREEon 01-22-2017 THYROXINE,FREE 1.13 ng/dL Normal 0.78 - 1.48 [facility] Comment on above: Result Comment: Thyr oxine Free testing is performed using different testing methodology at [facility] than at other [facility]. Direct result comparisons should only be made within the same method.. Patients receiving more than 5 mg/day of biotin may have interference in test results. A sample should be taken no sooner than eight hours after previous dose. Contact [phone] for additional information. Performed By: #### C OAGS ####[facility] [id number] TSHon 01-22-2017 Thyroid stimulating hormone (TSH) 5.79 m[IU]/L High 0.44 - 3.98 [facility] Comment on above: Result Comment: TSH testing is performed using different testing methodology at [facility] than at other [facility]. Direct result comparisons should only be made within the same method.. Patients receiving more than 5 mg/day of biotin may have interference in test results. A sample should be taken no sooner than eight hours after previous dose. Contact [phone] for additional information. Performed By: #### C OAGS ####[facility] [place] [address] GLUCOSE-POCTon 01-21-2017 Glucose mass conc 82 mg/dL Normal 74 - 99 [facility] Comment on above: Performed By: #### G MIKE ####[facility] [id number] CASE MANAGEMon 12-30-2016 CASE MANAGEM HNO ID: [id number] thor: Mira RivasRn) LEVI Rochaervice: Case ManagementAuthor Type: Registered NurseType: Care Mgt Progress NoteFiled: 12/30/2016 3:31 PMNote Text:CARE MANAGEMENT DISCHARGE NOTESERVICE DATE: 12/30/2016SERVICE TIME: 3:27 PM LOS: 14 daysAdmission Date: 12/15/2016DISCHARGE ARRANGEMENT (list agency and phone number)long term facilityProvider: [facility] Dkuka all dc documents to Yudi Boggs [phone] ASSESSMENT:Caregiver is ready, willing and able to meet the patient's needs asrecommended by the inter-professional team? YesPatient's transition needs and plan for meeting these needs: [facility]to [facility] SNFDoes the patient have an acute stroke diagnosis, or has the patient had astroke during this admission? NoHANDOFF COMMUNICATION:Primary Care Physician: Moreno Donnelly Ayijusr of care sent to: Moreno Donnelly MD? PCP - General [facility] [phone] [place] DocTreeChelsea HospitalSatarii.[address] [place] [address] Ottoniel Hinds MD? Gastroenterology [phone] DIGESTIVE [id number] [facility] [address] Jaya Darby Rai, MD? Pulmonary and Critical Care Medicine [phone] [address] [facility] [address] Thuan Burks MD? Neurology [phone] [address] Maged Mcginnis MD, MD? Infectious DiseasesInternal Medicine [phone] [address] [facility] [address] Johnny Sheldon DPM, DPM? Podiatry [phone] [facility] [address] Johnny Culver MD, MD? Endocrinology [phone] [address] [facility],[address] [address] Ronny Valente MD? Cardiology [phone] [address] Emetreio Braxton MD? Pulmonary and Critical Care Medicine [phone] [address] [facility]UN[facility] [address]CvteqzjMiriam HospitalTRANSPORTATION ARRANGEMENTS:Ambulance: Transport Agency and Phone: [facility] ambulance ( [facility]) [phone] / [phone]. Discussion of financial coverage occurredwith Patient and Spouse. CM informed patient/spouse of potential cost fortransport to [facility]. Spouse contacted [facility] whoinformed him of ambulance transport covered if medically necessary.ADDITIONAL CONTACT RESOURCES:SIGNATURE: Mira Rocha RN PATIENT NAME: Laura SinclairTE: December 30, 2016 : 3:26 PM PAGER/CONTACT #: [phone] [facility] CASE MANAGEM HNO ID: [id number] thor: LEVI Cardoza Rnervice: Case ManagementAuthor Type: Registered NurseType: Care Mgt Progress NoteFiled: 12/30/2016 1:33 PMNote Text:CARE MANAGEMENT PROGRESS NOTESERVICE DATE: 12/30/2016SERVICE TIME: 1:32 PM LOS: 14 daysPrecert obtained from [facility], Dr Nugent notified.SIGNATURE: Mira Rocha RN PATIENT NAME: Laura SinclairTE: December 30, 2016 : 1:32 PM PAGER/CONTACT #: [phone] [facility] CASE MANAGEM HNO ID: [id number] thor: LEVI Cardoza Rnervice: Case ManagementAuthor Type: Registered NurseType: Care Mgt Progress NoteFiled: 12/30/2016 11:41 AMNote Text:CARE MANAGEMENT PROGRESS NOTESERVICE DATE: 12/30/2016SERVICE TIME: 11:40 AM LOS: 14 daysCM notified by [facility] of precert being closed [facility]. Also having difficulty receiving notes from [facility] thru [facility], fax all documents to Yudi Boggs [phone]: Mira Rocha RN PATIENT NAME: Laura Hernández: December 30, 2016 : 11:40 AM PAGER/CONTACT #: [phone] [facility] CASE MANAGEM HNO ID: [id number] thor: LEVI Cardoza Rnervice: Case ManagementAuthor Type: Registered NurseType: Care Mgt Progress NoteFiled: 12/30/2016 10:21 AMNote Text:CARE MANAGEMENT PROGRESS NOTESERVICE DATE: 12/30/2016SERVICE TIME: 10:18 AM LOS: 14 daysCM sent updated notes to [facility] for precert, [facility], system down.SIGNATURE: Mira Rocha RN PATIENT NAME: Laura SinclairTE: December 30, 2016 : 10:18 AM PAGER/CONTACT #: [phone] Normal [facility] CBCon 12-30-2016 Erythrocyte distribution width Auto Ratio (RBC) 17.2 % High 11.5-15.0 [facility] Comment on above: Performed By: #### C BCDIF, PT, PTT, CMP, MG1 ####[facility] [address] [place] [address] Erythrocytes (RBC) 3.50 10*6/uL Low 3.90-5.20 [facility] Comment on above: Performed By: #### C BCDIF, PT, PTT, CMP, MG1 ####[place] [address] Hematocrit (HCT) 30.3 % Low 36.0-46.0 [facility] Comment on above: Performed By: #### C BCDIF, PT, PTT, CMP, MG1 ####[place] [address] Hemoglobin mass conc (Bld) 9.6 g/dL Low 11.5-15.5 [facility] Comment on above: Performed By: #### C BCDIF, PT, PTT, CMP, MG1 ####[place] [address] MCH 27.4 pG Normal 26.0-34.0 [facility] Comment on above: Performed By: #### C BCDIF, PT, PTT, CMP, MG1 ####[place] [address] MCHC mass conc (RBC) 31.7 g/dL Normal 30.5-36.0 [facility] Comment on above: Performed By: #### C BCDIF, PT, PTT, CMP, MG1 ####[place] [address] MCV 86.6 fL Normal 80.0-100.0 [facility] Comment on above: Performed By: #### C BCDIF, PT, PTT, CMP, MG1 ####[place] [address] Platelet mean volume (PMV) 10.1 fL Normal 9.0-12.7 [facility] Comment on above: Performed By: #### C BCDIF, PT, PTT, CMP, MG1 ####[facility] [address] [place] [address] Platelets 178 10*3/uL Normal 150-400 [facility] Comment on above: Performed By: #### C BCDIF, PT, PTT, CMP, MG1 ####[facility] [address] [place] [address] WBC (Leukocytes) 11.88 10*3/uL High 3.70-11.00 [facility] Comment on above: Performed By: #### C BCDIF, PT, PTT, CMP, MG1 ####[facility] [address]7[address] CNDSon 12-30-2016 CNDS HNO ID: [id number] thor: Kiara Watsone: General Internal MedicineAuthor Type: PhysicianType: Discharge SummariesFiled: 12/30/2016 8:16 PMNote Text:DISCHARGE SUMMARYPATIENT NAME: Laura StarkMRN: [id number] Information Admission Information ADMIT DATE: 12/15/2016DISCHARGE DATE: December 30, 2016MY DOCTORS AND MEDICAL TEAM:[facility] Doctor: Kiara Guadalupe Care Provider: Korin Oseguera Medical Team Members: Treatment Team:Attending Provider: Kiara NugentConsulting: Maged Mcginnis MDConsulting: Emeterio BraxtonConsulting: Ronyn De La TorreuConsulting: Johnny Culver MDConsulting: Ottoniel HindsConsulting: Thuan Weber CONDITION AT DISCHARGE: Stable.REASON I WAS IN THE HOSPITAL: AE of Asthma, Rapid Afib, Leg weakness, GIbleeding,SUMMARY OF WHAT HAPPENED WHILE I WAS IN THE HOSPITAL:Patient was admitted for above. Pt was given steroids, abx. Consultsobtained. Pt underwent cardioversion. PT/OT eval was done. Pt wasdischarged to SNF.OTHER PROBLEMS/DIAGNOSIS:Active Problems: Multinodular goiter Weakness Obesity, Class III, BMI >= 40 (morbid obesity) E66.01 Malnutrition of moderate degree (HCC) Asthma Hyperthyroidism Paroxysmal atrial fibrillation (HCC) CKD (chronic kidney disease) stage 3, GFR 30-59 ml/min Hypertension GERD (gastroesophageal reflux disease)Resolved Problems: * No resolved hospital problems. *OPERATIONS PERFORMED WHILE IN THE HOSPITAL:IMPORTANT TEST/PROCEDURES:TEST RESULTS NOT AVAILABLE AT THIS TIME:No pending results Discharge DispositionFollow Up Appointments Follow-Up Appointment When: In 2 weeksPatient/Parents to call for appointment?: Jen [phone] [address]JJN Requested ReferralAdditional Provider to Provider Information:Active Problems: Multinodular goiter POA: Yes Weakness POA: Yes Obesity, Class III, BMI >= 40 (morbid obesity) E66.01 POA: Yes Malnutrition of moderate degree (HCC) POA: Yes Asthma POA: Yes Hyperthyroidism POA: Yes Paroxysmal atrial fibrillation (HCC) POA: Yes CKD (chronic kidney disease) stage 3, GFR 30-59 ml/min POA: Yes Hypertension POA: Yes GERD (gastroesophageal reflux disease) POA: YesResolved Problems: * No resolved hospital problems. *FOLLOW-UP APPOINTMENTS ALREADY SCHEDULED WITH A [facility] PROVIDERNo future appointments.DISCHARGE MEDICATION: Current Discharge Medication ListSTART taking these medicationsmetHIMazole (TAPAZOLE) 5 mgTake 5 mg by mouth once daily.Refills: 0apixaban (ELIQUIS) 5 mgTake 5 mg by mouth twice daily.Refills: 0!! insulin lispro (HumaLOG) 5 UnitsInject 5 Units subcutaneously w MEALS.Refills: 0!! insulin lispro (HumaLOG) 1-10 UnitsInject 1-10 Units subcutaneously w MEALS. ADMINISTER CORRECTIONAL INSULINREGARDLESS OF MEAL OR NUTRITION INTAKEScale 2If Blood Glucose (mg/dL) is:Less than 110 Give 0 [id number] Give 0 bpner892-551 Give 2 ownus733-648 Give 4 lzann718-122 Give 6 wwczu261-238 Give 8 qoxvn579-877 Give 10 unitsGreater than 400 Give 10 units and Notify Provider.Refills: 0!! insulin NPH human (NovoLIN N, HumuLIN N) 10 UnitsInject 10 Units subcutaneously daily at bedtime.Refills: 0!! insulin NPH human (NovoLIN N, HumuLIN N) 14 UnitsInject 14 Units subcutaneously daily with breakfast.Refills: 0HYDROcodone-acetaminophen (NORCO) 1-2 tabletsTake 1-2 tablets by mouth every 6 hours as needed.Refills: 0hydrocortisone (HEMORRHOIDAL HC) 25 mg25 mg by RECTAL route every 12 hours.Qty: 4 Suppository Refills: 0clotrimazole (LOTRIMIN, CLOTRIM) 1 applicationApply 1 application to affected area twice daily.Refills: 0flecainide (TAMBOCOR) 100 mgTake 100 mg by mouth every 12 hours.Refills: 0!! - Potential duplicate medications found. Please discuss with provider.CONTINUE these medications which have CHANGEDdiltiazem CD (CARDIZEM CD, CARTIA XT) 360 mgTake 360 mg by mouth once daily.Refills: 0predniSONE (DELTASONE) 10 mgTake 10 mg by mouth once daily. 40MG PO QD FOR 3DAYS, THEN 30MG PO QD [id number], THEN 20MG PO QD FOR 3DAYS AND THEN 10MG PO QD FOR 3DAYS, THEN 5MGDAILY.Refills: 0CONTINUE these medications which have NOT CHANGEDguaiFENesin (MUCINEX) 1,200 mg Tm90Sipy by mouth twice daily.fluticasone-salmeter ol (ADVAIR) 1 PuffInhale 1 Puff as instructed twice daily.ipratropium-albutero l (DUONEB) 3 mLInhale 3 mL as instructed every 4 hours as needed.albuterol (PROVENTIL) 2.5 mgUse 2.5 mg via nebulizer every 4 hours as needed.spironolactone (ALDACTONE) 25 mgTake 25 mg by mouth twice daily.aspirin, enteric coated (ASPIRIN, ENTERIC COATED) 325 mgTake 325 mg by mouth once daily.hydroCHLOROthiazide (HYDRODIURIL, ESIDRIX) 25 mgTake 25 mg by mouth once daily.magnesium oxide (MAG-OX) 400 mgTake 400 mg by mouth once daily.melatonin 3 mgTake 3 mg by mouth daily at bedtime.Omeprazole 40 mgTake 40 mg by mouth once daily.montelukast (SINGULAIR) 10 mgTake 10 mg by mouth daily at bedtime.fluticasone (FLONASE) 1 SprayUse 1 [place] in each nostril twice daily.acetaminophen 1,300 mgTake 1,300 mg by mouth at bedtime as needed.albuterol HFA (PROVENTIL HFA, VENTOLIN HFA) 2 PuffsInhale 2 Puffs as instructed every 4 hours as needed.STOP taking these medicationsdoxycycline hyclate (VIBRAMYCIN) 100 mgComments:Reason for Stopping:Discharge Physical Exam:VITAL SIGNS: BP 114/51 Pulse 69 Temp 36.9 ?C (98.4 ?F) (Oral) Resp17 Ht 157.5 cm (5' 2) Wt 105.9 kg (233 lb 8 oz) SpO2 95% BMI42.71 kg/p2GFPEHPB: Alert, no distress, cooperative, Morbidly ObeseLUNGS: Positive findings: rhonchi scattered.CARDIAC: Normal S1 and S2; no rubs, murmurs, or gallopsABDOMEN: Abdomen soft, non-tender, BS normal, No masses or organomegalyEXTREMITIES: Extremities normal, no deformities, edema, clubbing or skindiscoloration. Good capillary refill.TIME OF CARE: Discharge Management: I personally spent greater than 30minutes involved in the discharge management of this patient.SIGNATURE: Kiara Nugent MD PAGER/CONTACT #:DATE: December 30, 2016TIME: 2:58 PM [facility] CONSULT PROGon 12-30-2016 CONSULT PROG HNO ID: [id number] thor: PARVIN Roldanervice: Infectious DiseaseAuthor Type: PhysicianType: Consult Progress NoteFiled: 12/31/2016 9:18 AMNote Text:INFECTIOUS DISEASE PROGRESS NOTEPatient Name: Laura Stark HISTORY:On RA O2. Cough is better. No new complaints. Feels better. No fevers.Leucocytosis fluctuating on steroids. Still weak. No diarrhea. ROS checkedin details. All qs answered.Patient Active Hospital Problem List: Multinodular goiter (05/14/2011) Weakness (12/16/2016) Obesity, Class III, BMI >= 40 (morbid obesity) E66.01 (12/16/2016) Malnutrition of moderate degree (HCC) (12/16/2016) Asthma (12/23/2016) Hyperthyroidism (12/23/2016) Paroxysmal atrial fibrillation (HCC) (12/23/2016) CKD (chronic kidney disease) stage 3, GFR 30-59 ml/min (12/23/2016) Hypertension (12/23/2016) GERD (gastroesophageal reflux disease) (12/23/2016)ASSESSMENT:MRSA and E coli HCAP. [place]AG in sputumButtock woundAcute respiratory failureFailed OP PO abx treatment w doxyWeaknessObesity, Class III, BMI >= 40Malnutrition of moderate degreeRECOMMENDATIONS:Disc ontinue zosyn since PsAG is R to it and she is improved wo specific rxfor itMay use IH abx if worse. Cannot use Cipro due to fleccanideSupportive careWean steroidsSupportive careSputum culturesMEDICATIONS: reviewed.No current hospital medications on file.PHYSICAL EXAM:Vital signs: BP 114/51 Pulse 69 Temp 36.9 ?C (98.4 ?F) (Oral) Resp17 Ht 157.5 cm (5' 2) Wt 105.9 kg (233 lb 8 oz) SpO2 95% BMI42.71 kg/m2Temp (24hrs), Av.7 ?C (98.1 ?F), Min:36.2 ?C (97.1 ?F), Max:37.3 ?C(99.1 ?F)General: alert, oriented, NADLungs: bilaterally coarse vesicular BSHeart: regular rate and rhythmAbdomen: soft, non tender, non distended, BS+Extremities: no edemaNo rashesNo joint inflammationNeck suppleLines okNo CVATLabs:Recent Labs 12/29/17045WBC 11.88* 13.99* 20.27*HB 9.6* 10.5* 11.8HCT 30.3* 32.8* 36.2PLT 178 204 216NA 132 132 129*K 3.0* 3.6 3.3*CHLOR 90* 92* 87*CO2 30 27 25BUN 42* 48* 47*CREAT 0.91 1.05 1.15Microbiology data: reviewedImaging data: Du Mcginnis [id number]/9: 18 AM Normal [facility] CONSULT PROG HNO ID: [id number] thor: Fern Gonzales: Pulmonary DiseaseAuthor Type: PhysicianType: Consult Progress NoteFiled: 12/30/2016 4:06 PMNote Text: RESPIRATORY INSTITUTEPULMONARY MEDICINEIN-PATIENT CONSULT PROGRESS NOTESERVICE DATE: 12/30/2016ASSESSMENT:?Asth ma with acute exacerbation, better todayBilateral atelectasisRecent sputum (+) E coli and MRSA ([facility] - 12/06/16)New cough with sputum productionPseudomonas aeruginosa in sputumAtrial fibrillation with RVR; uncontrolled, s/p cardioversionRemote history of DVT/PEMorbid obesityRectal bleeding?Suspected OSALeukocytosis, improvingWeakness?RECOMMEN DATIONS:Lasix 40 mg po daily for 5 daysTaper prednisone very slowly by10 mg every 5 days then keep at 5 mg dailyuntil she see her gage designer at [facility] nebulized?albuterol scheduled and PRN.Antibiotics stopped as pseudomonas is resistant to zosynMucinex 1200 mg every 12 hours.Pulmicort 0.5 nebulized BIDProtonix dose to 40 mg PO BIDBronchopulmonary hygiene - AcapellaOccupational therapy evaluation and treatmentPlan discussed in detail with patient, RN and primary attending. Patientverbalizes understanding and is in agreement with the current managementplan.Total time spent in patient care includes but is not limited to patient/family discussions, collaborative discussions with other healthcareproviders, review of medical records, review of laboratory tests,radiology images/ results, microbiology and pathology data.Virgen Kowalski, Respiratory InstituteThe Bellevue HospitalPager #[phone] COMPLAINT: Shortness of breathINTERVAL HPI:Laura Stark is a 61 year old female status sinceprevious days visit has improved. No fevers, chills, night sweats, chestpain, SOB, abd pain or leg swelling. No events over night. She receivedone dose of lasix 40 mg iv yesterday. Going to rehab today.MEDICATIONS:Current Facility-Administered Medications:insulin lispro 5 Units injection (rapid acting) (HumaLOG) 5 UnitsSUBCUTANEOUS w MEALSclotrimazole 1 % (LOTRIMIN, CLOTRIM) TOPICAL BIDinsulin lispro injection (rapid acting) (HumaLOG) SUBCUTANEOUS w MEALSinsulin lispro injection (rapid acting) (HumaLOG) SUBCUTANEOUS AT BEDTIMEpredniSONE 40 mg tab(s) (DELTASONE) 40 mg ORAL DAILYmorphine 1-2 mg injection 1-2 mg INTRAVENOUS q 4 H PRNpsyllium Husk 1.56 g cap(s) 1.56 g ORAL DAILYlactobacillus rhamnosus 10 billion cell (CULTURELLE) capsule 1 capsuleORAL DAILYflecainide 100 mg tab(s) (TAMBOCOR) 100 mg ORAL q 12 Hdiltiazem CD 360 mg cap(s) (CARDIZEM CD, CARTIA XT) 360 mg ORAL DAILYapixaban 5 mg tab(s) (ELIQUIS) 5 mg ORAL BIDaspirin, enteric coated 81 mg tab(s) (ASPIRIN, ENTERIC COATED) 81 mg ORALDAILYalbuterol 2.5 mg /3 mL (0.083 %) 2.5 mg (PROVENTIL) 2.5 mg INHALATION q 4H while awakealbuterol 2.5 mg /3 mL (0.083 %) 2.5 mg (PROVENTIL) 2.5 mg INHALATION q 2H PRNpantoprazole DR 40 mg tab(s) (PROTONIX) 40 mg ORAL BID AC (0600/1600)guaiFENesin 1,200 mg ER tab(s) (MUCINEX) 1,200 mg ORAL q 12 Hbudesonide 0.5 mg/2 mL 0.5 mg (PULMICORT) 0.5 mg INHALATION BIDmetHIMazole 5 mg tab(s) (TAPAZOLE) 5 mg ORAL DAILYondansetron (PF) 4 mg injection (ZOFRAN) 4 mg INTRAVENOUS q 6 H PRN0.9% NaCl 10 mL 10 mL INTRAVENOUS q 12 H0.9% NaCl 20 mL 20 mL INTRAVENOUS PRNcodeine-guaiFENesin 5-10 mL oral liquid (ROBITUSSIN AC) 5-10 mL ORAL q 6 HPRNdextrose 40 % 15 g (INSTA-GLUCOSE) 15 g ORAL PRNOrglucagon 1 mg injection (GLUCAGEN) 1 mg INTRAMUSCULAR PRNOrdextrose 50% in water 25 mL syringe 12.5 g INTRAVENOUS PRNHYDROcodone 5 mg - acetaminophen 325 mg tablet (NORCO) 1-2 tablet ORAL q 6H PRNmontelukast 10 mg tab(s) (SINGULAIR) 10 mg ORAL AT BEDTIMEmagnesium oxide 400 mg tab(s) (MAG-OX) 400 mg ORAL DAILYspironolactone 25 mg tab(s) (ALDACTONE) 25 mg ORAL BIDhydroCHLOROthiazide 25 mg tab(s) (HYDRODIURIL, ESIDRIX) 25 mg ORAL DAILYiv contrast (radiology procedure) INTRAVENOUS DIRECTED PRNCURRENT ALLERGIES:ALLERGIESAllerge n Reactions- Clindamycin Hives- Macrodantin [Nitrof* Other: See Comments Off-balance- Percocet [Oxycodone* Other: See Comments Nausea- Sulfa (Sulfonamide * Rash, Itching localized rash and itching all over- Zithromax [Azithrom* Rash, Itching localized rash and itching all over- Zenicef [Other] Rash, Itching itching in mouth; localized rash and itching all overPatient Vitals for the past 24 hrs: BP Temp Temp src Pulse Resp SpO2 Zmxzxq54/16/17 1556 133/63 36.9 ?C (98.4 ?F) Oral 72 18 93 % -12/30/16 1359 - - - 63 18 96 % -12/30/16 1350 - - - 65 18 93 % -12/30/16 1201 135/63 36.9 ?C (98.4 ?F) Oral 73 18 93 % -12/30/16 1004 - - - 84 16 - -12/30/16 0953 - - - 80 16 95 % -12/30/16 0755 139/50 37 ?C (98.6 ?F) Oral 75 18 95 % -12/30/16 0632 - - - 76 18 - -12/30/16 0618 - - - 74 18 95 % -12/30/16 0419 129/58 36.9 ?C (98.5 ?F) Oral 72 18 95 % 105.9 kg (233 lb 8oz)12/30/16 0059 128/74 37 ?C (98.6 ?F) Oral 79 18 97 % -12/29/16 2224 - - - 75 18 95 % -12/29/16 2050 138/60 37.1 ?C (98.7 ?F) Oral 79 18 94 % -12/29/16 1620 - - - - 18 - -12/29/16 1611 - - - 73 18 95 % -Intake/Output Summary (Last 24 hours) at 12/30/16 1558Last data filed at 12/30/16 1300 Gross per 24 hourIntake 680 mlOutput 1250 mlNet -570 mlOBJECTIVEPHYSICAL EXAM:BP 133/63 Pulse 72 Temp (Src) 98.4 (Oral) Resp 18 Ht 5' 2 (1.58m) Wt 233 lb 8 oz (105.9kg) SpO2 93% BMI 42.70 kg/(m2).General appearance: Obese, well appearing, alert, in no acute distressNose/Sinuses: NegativeOropharynx: Lips, mucosa, and tongue normal, teeth and gums normal,oropharynx normalRespiratory: Positive findings: wheezingCardiovascular: Negative. RRR without murmur, gallop, or rubs. Noectopy, pulses are normal, no peripheral edemaAbdomen: Soft, non tender, non distended. Normal bowel sounds.Extremities: No deformities, no clubbingDATADiagnostic tests reviewed for today's visit, films/specimens werepersonally reviewed by me:Most recent labs and imaging results.cxr December 29, 2016Suspect bilateralinfiltrates, which can be followed up.CBC, Coags, BMP, Mg, PhosRecent Labs 12/29/1704WBC 11.88* 13.99* 20.27*HB 9.6* 10.5* 11.8HCT 30.3* 32.8* 36.2PLT 178 204 216NA 132 132 129*K 3.0* 3.6 3.3*CHLOR 90* 92* 87*CO2 30 27 25BUN 42* 48* 47*CREAT 0.91 1.05 1.15GLUC 96 133* 223*CA 8.4* 8.7 8.9Liver Function, Amylase, AND LipaseRecent Labs 12/29/1704TPROT 5.1* 5.3* 5.9*ALB 2.9* 3.2* 3.4*ALT 54* 60* 69*AST 14 16 22ALKPHOS 68 70 85TBILI 0.5 0.5 0.7Cardiac EnzymesRecent Labs 016CK 39ABGsSIGNATURE: Fern Turcios MD PATIENT NAME: Laura StarkDATE: December 30, 2016 : 3:58 PM PAGER/CONTACT #: [phone] [facility] CONSULT PROG HNO ID: [id number] thor: Mia Thomaservice: EndocrinologyAuthor Type: PhysicianType: Consult Progress NoteFiled: 12/30/2016 2:26 PMNote Text:DIABETES PROGRESS NOTEPATIENT NAME: Laura StarkMRN: [id number] DATE: 12/30/2016ASSESSMENT AND PLAN Ms. Stark is a 61 year old female admitted to the hospital withdmitted to the hospital with A.fib and Hyperthyroidism.1) Hyperthyroidism:Likely toxic noduleTSI was negativeRecently underwent CT with contrast, therefore, will not able to do RAIuptake/scan at this timeContinue Methimazole 5 mg daily2) Thyroid nodule:MNG with dominant left thyroid nodulePer pt she had US guided FNA of this nodule, [facility] and if needed consider US guided FNA once hyperthyroid and Afib isunder control as outpatient?3) steroid induced hyperglycemia:Now on prednisone dailyContinue NPH 14 units in the morning, decrease evening dose to 10 unitsDecrease humalog 5 units with mealsMonitor accucheck AC/HSNotify Endocrinology if BG > 200 or < 80.Will continue to follow the patient and make further recommendationsaccordingly .Interval HPIFeels better todayNo palpitationCough is betterOn prednisone 40 mg dailyPAST MEDICAL HISTORY:PAST MEDICAL HISTORYDiagnosis Date- Abnormal mammogram, unspecified 12/06/2007- 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- DVT (deep venous thrombosis) (HCC) 1995 Rt lower leg- Embolism and thrombosis of unspecified site 10/28/2005- PE (pulmonary embolism)- Recurrent ventral incisional hernia 08/03/2012- Unspecified asthma(493.90)- Unspecified essential hypertensionCURRENT MEDICATION:Current Facility-Administered Medications:insulin lispro 5 Units injection (rapid acting) (HumaLOG) 5 UnitsSUBCUTANEOUS w MEALS Mia Hasan 5 Units at 12/30/16 1254[START ON 12/31/2016] insulin NPH human 14 Units injection (intermediateacting) (NovoLIN N, HumuLIN N) 14 Units SUBCUTANEOUS DAILY WITH BREAKFASTSana Hasaninsulin NPH human 10 Units injection (intermediate acting) (NovoLIN N,HumuLIN N) 10 Units SUBCUTANEOUS AT BEDTIME Mia Hasflowerlotrimazole 1 % (LOTRIMIN, CLOTRIM) TOPICAL BID Maged Mcginnis MDinsulin lispro injection (rapid acting) (HumaLOG) SUBCUTANEOUS w MEALSSuman Mima 2 Units at 12/30/16 1252insulin lispro injection (rapid acting) (HumaLOG) SUBCUTANEOUS AT BEDTIMESuman Mima 1 Units at 12/28/16 2103predniSONE 40 mg tab(s) (DELTASONE) 40 mg ORAL DAILY Yatish Jovanna 40 mg at103/01/16 0943morphine 1-2 mg injection 1-2 mg INTRAVENOUS q 4 H PRN Yatish Jovanna 2 mgat 12/27/16 0355psyllium Husk 1.56 g cap(s) 1.56 g ORAL DAILY Yatish Jovanna 1.56 g at102/29/16 0909lactobacillus rhamnosus 10 billion cell (CULTURELLE) capsule 1 capsuleORAL DAILY Vivian (Forensic Investigator) Blackwell Reece 1 capsule at 12/30/16 0941flecainide 100 mg tab(s) (TAMBOCOR) 100 mg ORAL q 12 H Nixon Enciso Obopaeil566 mg at 12/30/16 0943diltiazem CD 360 mg cap(s) (CARDIZEM CD, CARTIA XT) 360 mg ORAL DAILYMattjuany Enciso Micheal 360 mg at 12/30/16 0943apixaban 5 mg tab(s) (ELIQUIS) 5 mg ORAL BID Yatish Jovanna 5 mg at 949684frfugfb, enteric coated 81 mg tab(s) (ASPIRIN, ENTERIC COATED) 81 mg ORALDAILY Yatish Jovanna 81 mg at 12/30/16 0943albuterol 2.5 mg /3 mL (0.083 %) 2.5 mg (PROVENTIL) 2.5 mg INHALATION q 4H while awake Jaya Darby Austin 2.5 mg at 12/30/16 1351albuterol 2.5 mg /3 mL (0.083 %) 2.5 mg (PROVENTIL) 2.5 mg INHALATION q 2H PRN Jaya Darby Austin 2.5 mg at 12/29/[address] 40 mg tab(s) (PROTONIX) 40 mg ORAL BID AC (0600/1600)Jaya Darby Austin 40 mg at 12/30/16 0523guaiFENesin 1,200 mg ER tab(s) (MUCINEX) 1,200 mg ORAL q 12 H Elvia (Pa)Movens 1,200 mg at 12/30/16 0942budesonide 0.5 mg/2 mL 0.5 mg (PULMICORT) 0.5 mg INHALATION BID HardeepSingh Austin 0.5 mg at 12/30/16 0617metHIMazole 5 mg tab(s) (TAPAZOLE) 5 mg ORAL DAILY Mia Hasan 5 mg at103/01/16 0942ondansetron (PF) 4 mg injection (ZOFRAN) 4 mg INTRAVENOUS q 6 H PRN YatishGoyal 4 mg at 12/24/16 47908.9% NaCl 10 mL 10 mL INTRAVENOUS q 12 H Yatish Jovanna 10 mL at 8340.9% NaCl 20 mL 20 mL INTRAVENOUS PRN Yatish Jovanna 20 mL at 12/24/16 0700codeine-guaiFENesin 5-10 mL oral liquid (ROBITUSSIN AC) 5-10 mL ORAL q 6 HPRN Yatish Goyaldextrose 40 % 15 g (INSTA-GLUCOSE) 15 g ORAL PRN Yatish GoyalOrglucagon 1 mg injection (GLUCAGEN) 1 mg INTRAMUSCULAR PRN Yatish GoyalOrdextrose 50% in water 25 mL syringe 12.5 g INTRAVENOUS PRN Yatish GoyalHYDROcodone 5 mg - acetaminophen 325 mg tablet (NORCO) 1-2 tablet ORAL q 6H PRN Yatish Jovanna 1 tablet at 12/29/16 1526montelukast 10 mg tab(s) (SINGULAIR) 10 mg ORAL AT BEDTIME Yatish Jovanna 10mg at 12/29/16 2042magnesium oxide 400 mg tab(s) (MAG-OX) 400 mg ORAL DAILY Yatish Jovanna 400mg at 12/30/16 0943spironolactone 25 mg tab(s) (ALDACTONE) 25 mg ORAL BID Yatish Jovanna 25 mgat 12/30/16 0943hydroCHLOROthiazide 25 mg tab(s) (HYDRODIURIL, ESIDRIX) 25 mg ORAL DAILYYatish Jovanna 25 mg at 12/30/16 0942iv contrast (radiology procedure) INTRAVENOUS DIRECTED PRN Marisol(Neda) RussoCURRENT ALLERGIES: Allergies As of Date: 12/15/2016Allergen Noted ReactionCLINDAMYCIN 10/14/2005 HivesMACRODANTIN [NITROFURANTOIN MACRO*10/14/2005 Other: See CommentsPERCOCET [OXYCODONE-ACETAMINOPHEN]0 10/14/2005 Other: See CommentsSULFA (SULFONAMIDE ANTIBIOTICS) 10/14/2005 Rash and ItchingZITHROMAX [AZITHROMYCIN] 10/14/2005 Rash and ItchingZENICEF [OTHER] 10/14/2005 Rash and ItchingFully Assessed 12/15/2016COMPLETE REVIEW OF SYSTEMS:General: no fever, chills or acute changes in weight in the last 6 monthsSkin: no rashes, pruritis or dry skinCardiac: denies chest pain, heart palpitations or orthopneaPulmonary: denies wheezing, productive cough or exertional dyspneaGI: denies nausea, vomiting, diarrhea or constipationNeuro: denies numbnes/tingling in hands or feet and denies seizuresMusc: denies history of upper or lower extremity weaknessEndocrine: denies polyuria, polydipsia, nocturia, blurry vision orexcessive fatigueHematology: Negative for anemia, easy bleeding and bruising.OBJECTIVEPHYSICAL EXAM:BP 135/63 Pulse 63 Temp 36.9 ?C (98.4 ?F) (Oral) Resp 18 Ht 157.5 cm(5' 2) Wt 105.9 kg (233 lb 8 oz) SpO2 96% BMI 42.71 kg/n7Mahsnpz: Well appearing, alert, in no acute distress, well-hydrated, wellnourished.Skin: skin color, texture, turgor normal, no rashes or lesions.Heart: RRR without murmur, gallop, or rubs. No ectopyPulmonary: Lungs clear to auscultation. No wheezing, rhonchi, ralesAbdomen: soft, non-tender, positive bowel soundsExtremities: no edema, no calluses or ulcers present.Peripheral Pulses: posterior tibial and doralis pedis pulses 2+ andsymmetricalDATA:Diagnos tic tests reviewed for today:Recent Labs 12/31/1707157 12/29/1719PCGLUCOSE 199* 126* 274* 112* 210* 162* 190* 181* 277* 343* 201* 187* 137*Glucose, Point of CareDate Value Ref Range Xqvjpr6612/30/2016 199 (A) 65 - 100 mg/dL Final SIGNATURE: ALICJA AlmonteATE: December 30, 2016 Normal [facility] Comp Metabolic Panelon 12-30 Alanine aminotransferase (ALT) 54 U/L High 0-45 [facility] Comment on above: Performed By: #### C BCDIF, PT, PTT, CMP, MG1 ####[facility] [address] [place] [address] Albumin 2.9 g/dL Low 3.5-5.0 [facility] Comment on above: Performed By: #### C BCDIF, PT, PTT, CMP, MG1 ####[facility] [address] [place] [address] Alkaline phosphatase (ALP) 68 U/L Normal 40-150 [facility] Comment on above: Performed By: #### C BCDIF, PT, PTT, CMP, MG1 ####[facility] [address] [place] [address] Anion gap 12 mmol/L Normal 0-15 [facility] Comment on above: Performed By: #### C BCDIF, PT, PTT, CMP, MG1 ####[facility] [address] [place] [address] Aspartate aminotransferase (AST) 14 U/L Normal 7-40 [facility] Comment on above: Performed By: #### C BCDIF, PT, PTT, CMP, MG1 ####[facility] [address] [place] [address] Bilirubin (total) 0.5 mg/dL Normal 0.0-1.5 [facility] Comment on above: Performed By: #### C BCDIF, PT, PTT, CMP, MG1 ####[facility] [address] [place] [address] Calcium 8.4 mg/dL Low 8.5-10.5 [facility] Comment on above: Performed By: #### C BCDIF, PT, PTT, CMP, MG1 ####[facility] [address] [place] [address] Chloride 90 mmol/L Low 98-110 [facility] Comment on above: Performed By: #### C BCDIF, PT, PTT, CMP, MG1 ####[facility] [address] [place] [address] CO2 30 mmol/L Normal 23-32 [facility] Comment on above: Performed By: #### C BCDIF, PT, PTT, CMP, MG1 ####[facility] [address] [place] [address] Creatinine 0.91 mg/dL Normal 0.70-1.40 [facility] Comment on above: Performed By: #### C BCDIF, PT, PTT, CMP, MG1 ####[facility] [address] [place] [address] eGFR (non-black) mL/min/{1.73_m2} Normal [facility] Comment on above: Result Comment: eGFR (Estimated GFR) Units of measure: mL/min/1.73 meters squaredeGFR is derived from the reexpressed MDRD Study equation using the following parameters: serum creatinine, age, gender and race. The creatinine assay has been calibrated to be traceable to IDMS.An eGFR <60 mL/min/1.73m2 for >3 months is consistent with chronic kidney disease. Refer to KDOQI guidelines for clinical interpretation.In patients with unstable renal function, e.g. those with acute kidney injury, the eGFR may not accurately reflect actual GFR. Performed By: #### C BCDIF, PT, PTT, CMP, MG1 ####[facility] [address] [place] [phone] Glucose mass conc 96 mg/dL Normal 65-100 [facility] Comment on above: Performed By: #### C BCDIF, PT, PTT, CMP, MG1 ####[facility] [address] [place] [phone] Potassium molar conc 3.0 mmol/L Low 3.5-5.0 [facility] Comment on above: Performed By: #### C BCDIF, PT, PTT, CMP, MG1 ####[facility] [address] [place] [phone] Protein 5.1 g/dL Low 6.0-8.4 [facility] Comment on above: Performed By: #### C BCDIF, PT, PTT, CMP, MG1 ####[facility] [address] [place] [phone] Sodium 132 mmol/L Normal 132-148 [facility] Comment on above: Performed By: #### C BCDIF, PT, PTT, CMP, MG1 ####[facility] [address] [place] [phone] Urea nitrogen 42 mg/dL High 8-25 [facility] Comment on above: Performed By: #### C BCDIF, PT, PTT, CMP, MG1 ####[facility] [address] [place] [phone] NUTRITIONon 12-30-2016 NUTRITION HNO ID: [id number] thor: Terrie Cesar) HumeService: Nutrition TherapyAuthor Type: Registered DietitianType: NutritionFiled: 12/30/2016 6:40 AMNote Text:NUTRITION UPDATE NOTE -PATIENT NAME: Laura StarkMRN: [id number] OF : 1955SERVICE DATE: December 30, 2016Per HPI: admitted for acute asthma exacerbationMRSA and E coli HCAPButtock wound HTN CKD (chronic kidney disease) stage 3, GFR 30-59 ml/minWt: 105.9 kg (233 lb 8 oz)Admission Wt: 107 kg (236 lb)Intake- 50 average % of meals.Continue to encourage nutrient/caloric dense foods to help meet estimatedneeds.Reviewed current labs and physician progress notes. Will follow- up in5 days or as consulted. IDischarge Nutrition Recommendations:Diet: Carbohydrate Controlled DietMNT Billing Type: Routine Care/15 minNumber of Increments: 1Mjosi Trejo, RD, LD [facility] Respiratory Cult/Stainon Respiratory Cult/Stain Smear Result - Ra re Gram positive cocci --> ABNORMAL ALERT Many Polymorphonuclear leukocytesCulture Result - Rare Escherichia coli --> ABNORMAL ALERT Insignificant colony count. No further workup. --> ABNORMAL ALERT Few Normal respiratory vern present Few --> ABNORMAL ALERT Aspergillus fumigatus --> ABNORMAL ALERT Critically abnormal [facility] Comment on above: Performed By: #### C BCDIF, PT, PTT, CMP, MG1 ####[facility] [address] [place], [place] [phone] THERAPY NTon 12-30-2016 THERAPY NT HNO ID: [id number] thor: Mira (Ot/L) DarnellilService: Occupational TherapyAuthor Type: Occupational TherapistType: Therapy (PT/OT/Speech/Resp)Filed: 12/30/2016 3:06 PMNote Text:OCCUPATIONAL THERAPY MISSED VISITSERVICE DATE: 12/30/2016SERVICE TIME: 1505 to 1505ROOM: [id number] Treatment. Patient not seen due to Other: See Comment. Patientwith active discharge orders. [facility]Will [facility]-attempt as schedule allows if discharge status changes.SIGNATURE: Mira Willis OT/Aris PATIENT NAME: Laura StarkDATE: December 30, 2016 : 3:05 PM PAGER/CONTACT #:[phone] [facility] IVAN by IFAon 12-29-2016 IVAN Pattern Negative [facility] Comment on above: Performed By: #### C BCDIF, PT, PTT, CMP, MG1 ####[facility] [address] [place], [place] [phone] IVAN Titer Negative Normal Negative [facility] Comment on above: Result Comment: Norm al range : negative at <1:80 serum dilution.Approximately 6% of patients with connective tissue diseases with low positive EIA values are negative by IFA. Recommend follow-up with specific antinuclear antibodies if clinically indicated. Performed By: #### C BCDIF, PT, PTT, CMP, MG1 ####[facility] [address] Result Comment: Norm al range : negative at <1:80 serum dilution. Aldolaseon 12-29-2016 Aldolase 3.3 U/L Normal 1.2-7.6 [facility] Comment on above: Performed By: #### C BCDIF, PT, PTT, CMP, MG1 ####[facility] [address]smzo[address]16 [address] CASE MANAGEMon 12-29-2016 CASE MANAGEM HNO ID: [id number] thor: Diana Reyes () Roshan: (none)Author Type: Social WorkerType: Care Mgt Progress NoteFiled: 12/29/2016 12:36 PMNote Text:CARE MANAGEMENT PROGRESS NOTESERVICE DATE: 12/29/2016SERVICE TIME: 12:27 PM LOS: 13 daysUpdated notes [facility] again both manually [facility] All[facility] 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 Awaiting precert. CM to follow and support. [place]rend[place]ap[place] with [facility] and indicated pt is medically ready to dc andis only awaiting precert.MOBILITY ENGINEER will continue to follow and support.SIGNATURE: JOSE Blount PATIENT NAME: Laura StarkDATE: December 29, 2016 : 12:27 PM PAGER/CONTACT #: [phone] Normal [facility] CBCon 12-29-2016 Erythrocyte distribution width Auto Ratio (RBC) 17.3 % High 11.5-15.0 [facility] Comment on above: Performed By: #### C BCDIF, PT, PTT, CMP, MG1 ####[facility] Phjdltmjqc1102 [address] Erythrocytes (RBC) 3.82 10*6/uL Low 3.90-5.20 [facility] Comment on above: Performed By: #### C BCDIF, PT, PTT, CMP, MG1 ####[facility] [address]slc[address] Hematocrit (HCT) 32.8 % Low 36.0-46.0 [facility] Comment on above: Performed By: #### C BCDIF, PT, PTT, CMP, MG1 ####[facility] [address] [place] [address] Hemoglobin mass conc (Bld) 10.5 g/dL Low 11.5-15.5 [facility] Comment on above: Performed By: #### C BCDIF, PT, PTT, CMP, MG1 ####[facility] [address] [place] [address] MCH 27.5 pG Normal 26.0-34.0 [facility] Comment on above: Performed By: #### C BCDIF, PT, PTT, CMP, MG1 ####[place] [address] MCHC mass conc (RBC) 32.0 g/dL Normal 30.5-36.0 [facility] Comment on above: Performed By: #### C BCDIF, PT, PTT, CMP, MG1 ####[place] [address] MCV 85.9 fL Normal 80.0-100.0 [facility] Comment on above: Performed By: #### C BCDIF, PT, PTT, CMP, MG1 ####[place] [address] Platelet mean volume (PMV) 10.2 fL Normal 9.0-12.7 [facility] Comment on above: Performed By: #### C BCDIF, PT, PTT, CMP, MG1 ####[place] [address] Platelets 204 10*3/uL Normal 150-400 [facility] Comment on above: Performed By: #### C BCDIF, PT, PTT, CMP, MG1 ####[place] [address] WBC (Leukocytes) 13.99 10*3/uL High 3.70-11.00 [facility] Comment on above: Performed By: #### C BCDIF, PT, PTT, CMP, MG1 ####[facility] [address] [place] [phone] CKon 12-29-2016 Creatine kinase (CK) 39 U/L Normal 30-220 [facility] Comment on above: Performed By: #### C BCDIF, PT, PTT, CMP, MG1 ####[facility] Pmxqhphnap1781 [phone] CONSULTon 12-29-2016 CONSULT HNO ID: [id number] thor: Edgard Harkins Jr.Service: NeurologyAuthor Type: PhysicianType: ConsultsFiled: 12/29/2016 3:31 PMNote Text:CONSULT: NEUROLOGY SERVICESERVICE DATE: 12/29/2016SERVICE TIME: 2:58 PMREASON FOR CONSULT: WeaknessREQUESTING PHYSICIAN: Dr. Kiara NugentALLEN [facility]: Sidra OsegueraTaylor Stark is a pleasant 61 year old right handed female with multiplemedical conditions, and currently admitted for acute asthma exacerbationwith ?HCAP, hyperglycemia secondary to steroids, thyroid disease, afibwith RVR. She initially presented to [facility] on 12/16/16 and sincethat time has primarily been on bedrest. She states startingapproximately 5 days ago, she noted that she was more weak thanpreviously, including more difficulties getting out of chair or bed, andincreasing effort to maintain posture when standing up. She statesweakness associated with pain in bilateral knees and ankles. She cannotassociate weakness and pain with an acute event. She describes pain asburning sensation and that pain is worse when she is on her feet. She hasbeen on multiple types of antibiotics and steroids now for >4 weeks perpatient. She has a known history of lumbar disease per patient that hasresulted in numbness in the bottoms of her feet. Unfortunately I cannotfind any imaging studies to confirm the degree of lumbar disease. Shedenies history of bowel or bladder incontinence. While symptoms primarilyinvolve the lower extremities, she is also complaining of upper extremityweakness as well. She denies vision change, speech change, languageimpairment, dysphagia, vertigo, headache.Labs performed including CK, aldolase and uric acid all were within normalrange (see EPIC labs). Current CMP and CBC unremarkable and baseline forpatient with leukocytosis and hyperglycemia likely due to steroids.FUNCTIONAL STATUS: IndependentPAST MEDICAL HISTORYDiagnosis Date- Abnormal mammogram, unspecified 12/06/2007- 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- DVT (deep venous thrombosis) (HCC) 1995 Rt lower leg- Embolism and thrombosis of unspecified site 10/28/2005- PE (pulmonary embolism)- Recurrent ventral incisional hernia 08/03/2012- Unspecified asthma(493.90)- Unspecified essential hypertensionPAST SURGICAL HISTORYProcedure Laterality Date- APPENDECTOMY- DELIVERY ONLY , low cervical- COLONOSCOP W/ OR W/O [facility] SPEC 01-09-13- DEBRIDE SKIN AND SUBQ TISSU 02-10-12- FILTER PLACEMENT (VENA CAVA) 01-15-13- FNA WITH IMAGING 05/26/11 U/S FNA left thyroid nodule- FREEING BOWEL ADHESION,ENTEROLYSIS 03-24-12- INSER NON-TUNNEL CVC >= 5 YR 03-24-12- LAP INC CY RECUR COMP 01-18-13- PAST SURGICAL HISTORY OF 2003 right ankle surgery-fusion- PAST SURGICAL HISTORY OF 2009 right shoulder partial replacement- REPAIR INCIS HERNIA W MESH 01-31-12- REPAIR INCISIONAL HERNIA,LALO 01-31-12- TOTAL ABDOM HYSTERECTOMY 1996 Hysterectomy, RONN- TRANSCATH RETRIEVAL,PERCUT 02-21-13 FILTER REMOVALFAMILY HISTORYProblem Relation Age of Onset- Cancer Father skin- Hypertension Father- Cancer Maternal Grandmother colon- Cancer Paternal Grandfather leukemia- Diabetes Mother- Hypertension Mother- Ischemic Heart Disease Mother- Hypertension Maternal Grandfather- Ischemic Heart Disease Maternal Grandfather- Diabetes Maternal GrandfatherSocial HistorySubstance Use Topics- Smoking status: Former Smoker Packs/day: 1.00 Years: 20.00 Types: Cigarettes Quit date: 10/29/1995- Smokeless tobacco: Not on file- Alcohol use NoPrescriptions Prior to Admission:predniSONE (DELTASONE) 20 mg tablet Take 20 mg by mouth once daily. Taperstarting 12/16/16 20mg x3 days, 10mg x3days, 5mg x3 days. Thendiscontinued Disp: Rfl:doxycycline hyclate (VIBRAMYCIN) 100 mg capsule Take 100 mg by mouth twicedaily. 12/17/16 AM last dose Disp: Rfl: 12/15/2016 at 0700guaiFENesin (MUCINEX) 1,200 mg Ta12 Take by mouth twice daily. Disp:Rfl: 12/15/2016 at 0700fluticasone-salmeterol (ADVAIR DISKUS) 500-50 mcg/dose dsdv Inhale 1 [place] instructed twice daily. Disp: Rfl: 12/15/2016 at 0700ipratropium-albuterol (DUONEB) 0.5 mg-3 mg(2.5 mg base)/3 mL nebu Inhale 3mL as instructed every 4 hours as needed. Disp: Rfl: Unknown at Unknowntimealbuterol (PROVENTIL) 2.5 mg /3 mL (0.083 %) nebulizer solution Use 2.5 mgvia nebulizer every 4 hours as needed. Disp: Rfl: 12/15/2016spironolactone (ALDACTONE) 25 mg tablet Take 25 mg by mouth twice daily.Disp: Rfl: 12/15/2016 at 1200aspirin, enteric coated (ASPIRIN, ENTERIC COATED) 325 mg EC tablet Obks860 mg by mouth once daily. Disp: Rfl: 12/15/2016 at 0700hydroCHLOROthiazide (HYDRODIURIL, ESIDRIX) 25 mg tablet Take 25 mg bymouth once daily. Disp: Rfl: 12/15/2016 at 1200magnesium oxide (MAG-OX) 400 mg tablet Take 400 mg by mouth once daily.Disp: Rfl: 12/14/2016 at 2200melatonin 3 mg Take 3 mg by mouth daily at bedtime. Disp: Rfl:12/14/2016 at 2200Omeprazole (PRILOSEC) 40 mg capsule Take 40 mg by mouth once daily. Disp:Rfl: 12/15/2016 at 0700montelukast (SINGULAIR) 10 mg tablet Take 10 mg by mouth daily at bedtime.Disp: Rfl: 12/14/2016 at 2200fluticasone (FLONASE) 50 mcg/actuation nasal spray Use 1 [place] in eachnostril twice daily. Disp: Rfl: 12/15/2016 at 0700diltiazem CD (CARDIZEM CD) 180 mg 24 hr capsule Take 180 mg by mouth oncedaily. Disp: Rfl: 12/15/2016 at 1200acetaminophen (TYLENOL ARTHRITIS PAIN) 650 mg CR tablet Take 1,300 mg bymouth at bedtime as needed. Disp: Rfl: 12/14/2016 at 2200albuterol HFA (PROAIR HFA) 90 mcg/actuation inhaler Inhale 2 Puffs asinstructed every 4 hours as needed. Disp: Rfl:Current hospital medications:insulin lispro injection (rapid acting) (HumaLOG) SUBCUTANEOUS w MEALSinsulin lispro injection (rapid acting) (HumaLOG) SUBCUTANEOUS AT BEDTIMEpredniSONE 40 mg tab(s) (DELTASONE) 40 mg ORAL DAILYmorphine 1-2 mg injection 1-2 mg INTRAVENOUS q 4 H PRNpsyllium Husk 1.56 g cap(s) 1.56 g ORAL DAILYlactobacillus rhamnosus 10 billion cell (CULTURELLE) capsule 1 capsuleORAL DAILYflecainide 100 mg tab(s) (TAMBOCOR) 100 mg ORAL q 12 Hdiltiazem CD 360 mg cap(s) (CARDIZEM CD, CARTIA XT) 360 mg ORAL DAILYinsulin lispro 7 Units injection (rapid acting) (HumaLOG) 7 UnitsSUBCUTANEOUS w MEALSinsulin NPH human 14 Units injection (intermediate acting) (NovoLIN N,HumuLIN N) 14 Units SUBCUTANEOUS BIDapixaban 5 mg tab(s) (ELIQUIS) 5 mg ORAL BIDaspirin, enteric coated 81 mg tab(s) (ASPIRIN, ENTERIC COATED) 81 mg ORALDAILYhydrocortisone 25 mg suppository (HEMORRHOIDAL HC) 25 mg RECTAL q 12 Halbuterol 2.5 mg /3 mL (0.083 %) 2.5 mg (PROVENTIL) 2.5 mg INHALATION q 4H while awakealbuterol 2.5 mg /3 mL (0.083 %) 2.5 mg (PROVENTIL) 2.5 mg INHALATION q 2H PRNpantoprazole DR 40 mg tab(s) (PROTONIX) 40 mg ORAL BID AC (0600/1600)guaiFENesin 1,200 mg ER tab(s) (MUCINEX) 1,200 mg ORAL q 12 Hbudesonide 0.5 mg/2 mL 0.5 mg (PULMICORT) 0.5 mg INHALATION BIDmetHIMazole 5 mg tab(s) (TAPAZOLE) 5 mg ORAL DAILYondansetron (PF) 4 mg injection (ZOFRAN) 4 mg INTRAVENOUS q 6 H PRN0.9% NaCl 10 mL 10 mL INTRAVENOUS q 12 H0.9% NaCl 20 mL 20 mL INTRAVENOUS PRNcodeine-guaiFENesin 5-10 mL oral liquid (ROBITUSSIN AC) 5-10 mL ORAL q 6 HPRNdextrose 40 % 15 g (INSTA-GLUCOSE) 15 g ORAL PRNglucagon 1 mg injection (GLUCAGEN) 1 mg INTRAMUSCULAR PRNdextrose 50% in water 25 mL syringe 12.5 g INTRAVENOUS PRNHYDROcodone 5 mg - acetaminophen 325 mg tablet (NORCO) 1-2 tablet ORAL q 6H PRNmontelukast 10 mg tab(s) (SINGULAIR) 10 mg ORAL AT BEDTIMEmagnesium oxide 400 mg tab(s) (MAG-OX) 400 mg ORAL DAILYspironolactone 25 mg tab(s) (ALDACTONE) 25 mg ORAL BIDhydroCHLOROthiazide 25 mg tab(s) (HYDRODIURIL, ESIDRIX) 25 mg ORAL DAILYiv contrast (radiology procedure) INTRAVENOUS DIRECTED PRNAllergies As of Date: 12/15/2016Allergen Noted ReactionCLINDAMYCIN 10/14/2005 HivesMACRODANTIN [NITROFURANTOIN MACRO*10/14/2005 Other: See CommentsPERCOCET [OXYCODONE-ACETAMINOPHEN]0 10/14/2005 Other: See CommentsSULFA (SULFONAMIDE ANTIBIOTICS) 10/14/2005 Rash and ItchingZITHROMAX [AZITHROMYCIN] 10/14/2005 Rash and ItchingZENICEF [OTHER] 10/14/2005 Rash and ItchingFully Assessed 12/15/2016COMPLETE REVIEW OF SYSTEMS:GENERAL: No weight loss, malaise or feversHEENT: Negative for frequent or significant headaches, No changes inhearing or vision, no nose bleeds or other nasal problemsNECK: Negative for lumps, goiter, pain and significant neck swellingRESPIRATORY: Positive for cough, SOB at rest and [place].CARDIOVASCULAR: Negative for CP or palpitations.GI: No nausea or vomiting.: No dysuria.MUSCULOSKELETAL: See HPISKIN: Negative for lesions, rash, and itchingHEMATOLOGY/LYMPHOLO GY: Negative for prolonged bleeding, bruising easily orswollen nodesENDOCRINE: Negative for cold or heat intolerance, polyuria, polydipsia andgoiterNEURO: No history of headaches, syncope, paralysis, seizures.OBJECTIVEPHYSICAL EXAM:GENERAL EXAM:General appearance: NAD, pleasant. Cushingoid appearance.HEENT: NC/AT, nasal congestion absent, no oral lesions, membranes moist.NECK: No masses, supple.Lungs: Scattered wheezes bilateral.CV: RRR nl S1, S2. No carotid bruits.Abd: Soft, nontender. Bowel sounds present.Extr: No cyanosis, clubbing, 1+ edema. No evidence of fasciculations.Distal extremity pulses 1+. Capillary refill <2 sec.Skin: Cool to touch.NEUROLOGICAL EXAM:General: Awake, alert, oriented x3 (person,place,time), language fluent,no dysarthria; comprehension, naming, repetition intact. Fund ofknowledge grossly normal by MOCA.CN: PERRL, fundi with no evidence of papilledema, EOMI and withoutnystagmus, VFF to confrontation, facial sensation and strength are normaland symmetric, hearing is intact to finger rub bilaterally, palate andtongue movements are intact and symmetric. SCM and trapezius strengthnormal.Motor: Normal tone, bulk. Strength 4+/5 upper extremities, 4+/5 dorsi andplantar flexion, 4-/5 knee extension angelo, 4/5 knee flexion angelo, 4/5 hipflex and extension angelo.Reflexes: 1/4 and symmetric, plantar stimulation is flexor.Coordination: FNF, OLE, HTS intact. No tremors.Sensation: LT, PP intact throughout although diminished distal to anklesbilateral. No evidence of neglect.Gait: Deferred secondary to complaints of weakness.Patient Vitals for the past 24 hrs: BP Temp Temp src Pulse Resp SpO2 Jxhgvg90/15/17 1125 143/58 37.2 ?C (99 ?F) Oral 75 18 94 % -12/29/16 1030 - - - 77 18 97 % -12/29/16 1018 - - - 78 18 96 % -12/29/16 0803 126/50 37.3 ?C (99.1 ?F) Oral 76 18 96 % -12/29/16 0619 - - - 71 18 - -12/29/16 0602 - - - 75 19 95 % -12/29/16 0410 145/69 36.6 ?C (97.8 ?F) Oral 77 19 98 % 105.5 kg (232 lb 8oz)12/29/16 0126 - - - 70 20 98 % -12/28/16 2358 153/66 36.2 ?C (97.1 ?F) Oral 77 18 98 % -12/28/162121 - - - 72 18 - -12/28/16 2106 144/71 36.5 ?C (97.7 ?F) Oral 73 18 97 % -Body mass index is 42.52 kg/(m2).DATA:Diagnostic tests reviewed for today's visit:Most recent labs and imaging results.WBC (k/uL)Date Value12/29/2016 13.9911 20.27102/27/2016 14.19 RBC (m/uL)Date Value12/29/2016 3.8212/28/2016 4.2211 4.41 Platelet Count (k/uL)Date Value12/29/2016 5042312/27/2016 206 BUN (mg/dL)Date Value12/29/2016 4812/28/2016 4712/27/2016 45 Creatinine (mg/dL)Date Value12/29/2016 1.0512/28/2016 1.15102/27/2016 1.24 CBC, Coags, BMP, Mg, PhosRecent Labs 12/28/1713NA 132 129* 131*K 3.6 3.3* 3.4*CHLOR 92* 87* 92*CO2 27 25 25GLUC 133* 223* 129*CA 8.7 8.9 8.6MG -- -- 2.4Liver Function, Amylase, AND LipaseRecent Labs 12/28/1713TPROT 5.3* 5.9* 5.6*ALB 3.2* 3.4* 3.3*ALT 60* 69* 65*AST 16 22 17ALKPHOS 70 85 81TBILI 0.5 0.7 0.8TSHDate Value Ref Range Ofbsjv5912/18/2016 0.242 (L) 0.400 - 5.500 uU/mL Final IMPRESSION/ RECOMMENDATIONSPatient with generalized weakness of uncertain etiology. With symptomsbeing greater in lower than upper extremities, need to consider lumbardisease as possible contributing factor, especially given prior diagnosis. However, given diffuse nature of symptoms, need to consider myopathy withsystemic disorder that would result in CK levels falling within thereference range. These would include endocrine myopathy (particularlythyroid) CK level can be normal (except in cases of hypothyroid); CKlevels can also fall within reference range for a chronic steroid myopathy-- patient has both thyroid disease and chronic steroid use. Yet,myopathies would not explain joint paint, and thus also need to determineif other inflammatory process present. Recommend initiate workup asfollows:-MRI of L spine to evaluate for lumbar disease.-correct thyroid abnormalities.-recommend attempt be made to decrease prednisone dose to <30mg/day-PT/OT-Check ESR/IVAN/RF-If above workup unremarkable and symptoms not improving, then may need toconsider EMG/NCV as well as muscle biopsy.SIGNATURE: Edgard Harkins MD PATIENT NAME: Laura StarkDATE: December 29, 2016 : 2:58 PM PAGER: [phone] [facility] CONSULT PROGon 12-29-2016 CONSULT PROG HNO ID: [id number] thor: PARVIN Roldanervice: Infectious DiseaseAuthor Type: PhysicianType: Consult Progress NoteFiled: 12/29/2016 8:09 PMNote Text:INFECTIOUS DISEASE PROGRESS NOTEPatient Name: Laura Stark HISTORY:On RA O2. Cough w expectoration. No new complaints. Feels better. Nofevers. Leucocytosis fluctuating on steroids. Still weak. No diarrhea. ROSchecked in details. All qs answered.Patient Active Hospital Problem List: Multinodular goiter (05/14/2011) Weakness (12/16/2016) Obesity, Class III, BMI >= 40 (morbid obesity) E66.01 (12/16/2016) Malnutrition of moderate degree (HCC) (12/16/2016) Asthma (12/23/2016) Hyperthyroidism (12/23/2016) Paroxysmal atrial fibrillation (HCC) (12/23/2016) CKD (chronic kidney disease) stage 3, GFR 30-59 ml/min (12/23/2016) Hypertension (12/23/2016) GERD (gastroesophageal reflux disease) (12/23/2016)ASSESSMENT:MRSA and E coli HCAP. [place] in sputumButtock woundAcute respiratory failureFailed OP PO abx treatment w doxyWeaknessObesity, Class III, BMI >= 40Malnutrition of moderate degreeRECOMMENDATIONS:Disc ontinue zosyn since PsAG is R to it and she is improved wo specific rxfor itMay use IH abx if worse. Cannot use Cipro due to fleccanideSupportive careWean steroidsSupportive careSputum culturesMEDICATIONS: reviewed.Current hospital medications:clotrimazole 1 % (LOTRIMIN, CLOTRIM) TOPICAL BIDinsulin NPH human 10 Units injection (intermediate acting) (NovoLIN N,HumuLIN N) 10 Units SUBCUTANEOUS ONCEinsulin lispro injection (rapid acting) (HumaLOG) SUBCUTANEOUS w MEALSinsulin lispro injection (rapid acting) (HumaLOG) SUBCUTANEOUS AT BEDTIMEpredniSONE 40 mg tab(s) (DELTASONE) 40 mg ORAL DAILYmorphine 1-2 mg injection 1-2 mg INTRAVENOUS q 4 H PRNpsyllium Husk 1.56 g cap(s) 1.56 g ORAL DAILYlactobacillus rhamnosus 10 billion cell (CULTURELLE) capsule 1 capsuleORAL DAILYflecainide 100 mg tab(s) (TAMBOCOR) 100 mg ORAL q 12 Hdiltiazem CD 360 mg cap(s) (CARDIZEM CD, CARTIA XT) 360 mg ORAL DAILYinsulin lispro 7 Units injection (rapid acting) (HumaLOG) 7 UnitsSUBCUTANEOUS w MEALSinsulin NPH human 14 Units injection (intermediate acting) (NovoLIN N,HumuLIN N) 14 Units SUBCUTANEOUS BIDapixaban 5 mg tab(s) (ELIQUIS) 5 mg ORAL BIDaspirin, enteric coated 81 mg tab(s) (ASPIRIN, ENTERIC COATED) 81 mg ORALDAILYhydrocortisone 25 mg suppository (HEMORRHOIDAL HC) 25 mg RECTAL q 12 Halbuterol 2.5 mg /3 mL (0.083 %) 2.5 mg (PROVENTIL) 2.5 mg INHALATION q 4H while awakealbuterol 2.5 mg /3 mL (0.083 %) 2.5 mg (PROVENTIL) 2.5 mg INHALATION q 2H PRNpantoprazole DR 40 mg tab(s) (PROTONIX) 40 mg ORAL BID AC (0600/1600)guaiFENesin 1,200 mg ER tab(s) (MUCINEX) 1,200 mg ORAL q 12 Hbudesonide 0.5 mg/2 mL 0.5 mg (PULMICORT) 0.5 mg INHALATION BIDmetHIMazole 5 mg tab(s) (TAPAZOLE) 5 mg ORAL DAILYondansetron (PF) 4 mg injection (ZOFRAN) 4 mg INTRAVENOUS q 6 H PRN0.9% NaCl 10 mL 10 mL INTRAVENOUS q 12 H0.9% NaCl 20 mL 20 mL INTRAVENOUS PRNcodeine-guaiFENesin 5-10 mL oral liquid (ROBITUSSIN AC) 5-10 mL ORAL q 6 HPRNdextrose 40 % 15 g (INSTA-GLUCOSE) 15 g ORAL PRNglucagon 1 mg injection (GLUCAGEN) 1 mg INTRAMUSCULAR PRNdextrose 50% in water 25 mL syringe 12.5 g INTRAVENOUS PRNHYDROcodone 5 mg - acetaminophen 325 mg tablet (NORCO) 1-2 tablet ORAL q 6H PRNmontelukast 10 mg tab(s) (SINGULAIR) 10 mg ORAL AT BEDTIMEmagnesium oxide 400 mg tab(s) (MAG-OX) 400 mg ORAL DAILYspironolactone 25 mg tab(s) (ALDACTONE) 25 mg ORAL BIDhydroCHLOROthiazide 25 mg tab(s) (HYDRODIURIL, ESIDRIX) 25 mg ORAL DAILYiv contrast (radiology procedure) INTRAVENOUS DIRECTED PRNPHYSICAL EXAM:Vital signs: BP 128/65 Pulse 73 Temp 36.7 ?C (98 ?F) (Oral) Resp 18 Ht 157.5 cm (5' 2) Wt 105.5 kg (232 lb 8 oz) SpO2 95% BMI 42.52kg/m2Temp (24hrs), Av.7 ?C (98.1 ?F), Min:36.2 ?C (97.1 ?F), Max:37.3 ?C(99.1 ?F)General: alert, oriented, NADLungs: bilaterally coarse vesicular BSHeart: regular rate and rhythmAbdomen: soft, non tender, non distended, BS+Extremities: no edemaNo rashesNo joint inflammationNeck suppleLines okNo CVATLabs:Recent Labs 42545WBC 13.99* 20.27* 14.19*HB 10.5* 11.8 12.1HCT 32.8* 36.2 37.7PLT 204 216 206NA 132 129* 131*K 3.6 3.3* 3.4*CHLOR 92* 87* 92*CO2 27 25 25BUN 48* 47* 45*CREAT 1.05 1.15 1.24Microbiology data: reviewedImaging data: Du Mcginnis [id number]: 45 PM [facility] CONSULT PROG HNO ID: [id number] thor: Fern Gonzales: Pulmonary DiseaseAuthor Type: PhysicianType: Consult Progress NoteFiled: 12/29/2016 11:58 AMNote Text: RESPIRATORY INSTITUTEPULMONARY MEDICINEIN-PATIENT CONSULT PROGRESS NOTESERVICE DATE: 12/29/2016ASSESSMENT:Asthm a with acute exacerbation, worse symptoms todayBilateral atelectasisRecent sputum (+) E coli and MRSA ([facility] - 12/06/16)New cough with sputum productionPseudomonas aeruginosa in sputumAtrial fibrillation with RVR; uncontrolled, s/p cardioversionRemote history of DVT/PEMorbid obesityRectal bleeding?Suspected OSALeukocytosis, improvingWeaknessRECOMMEND ATIONS:CXR todayLasix 40 mg IV one dose (5 liter positive fluid balance since admission)Ct scan chest in am if no improvement of her symptoms with diuresisContinue nebulized?albuterol scheduled and PRN.continue Prednisone poAntibiotics as per ID - IV Zosyn.Mucinex 1200 mg every 12 hours.Pulmicort 0.5 nebulized BIDProtonix dose to 40 mg PO BIDBronchopulmonary hygiene - AcapellaOccupational therapy evaluation and treatmentPlan discussed in detail with patient, RN and primary attending. Patientverbalizes understanding and is in agreement with the current managementplan.Total time spent in patient care includes but is not limited to patient/family discussions, collaborative discussions with other healthcareproviders, review of medical records, review of laboratory tests,radiology images/ results, microbiology and pathology data.Virgen Kowalski, Respiratory InstituteThe Bellevue HospitalPager #[phone] COMPLAINT: Shortness of breathINTERVAL HPI:Laura Stark is a 61 year old female status sinceprevious days visit is about the same. No fevers, chills, night sweats,chest pain, SOB, abd pain or leg swelling. No events over night. She ishaving more cough and brownish sputum production since the FERNANDO(aspiration?). She is wheezing more today. cxr showed possible new rightupper lobe consolidation and patchy nodular density mid lung field.MEDICATIONS:Current Facility-Administered Medications:furosemide 40 mg injection (LASIX) 40 mg INTRAVENOUS ONCEinsulin lispro injection (rapid acting) (HumaLOG) SUBCUTANEOUS w MEALSinsulin lispro injection (rapid acting) (HumaLOG) SUBCUTANEOUS AT BEDTIMEpredniSONE 40 mg tab(s) (DELTASONE) 40 mg ORAL DAILYmorphine 1-2 mg injection 1-2 mg INTRAVENOUS q 4 H PRNpsyllium Husk 1.56 g cap(s) 1.56 g ORAL DAILYlactobacillus rhamnosus 10 billion cell (CULTURELLE) capsule 1 capsuleORAL DAILYflecainide 100 mg tab(s) (TAMBOCOR) 100 mg ORAL q 12 Hdiltiazem CD 360 mg cap(s) (CARDIZEM CD, CARTIA XT) 360 mg ORAL DAILYpiperacillin-tazobact am 3.375 g in dextrose (iso-osmotic) 50 mL (ZOSYN)3.375 g INTRAVENOUS q 6 Hinsulin lispro 7 Units injection (rapid acting) (HumaLOG) 7 UnitsSUBCUTANEOUS w MEALSinsulin NPH human 14 Units injection (intermediate acting) (NovoLIN N,HumuLIN N) 14 Units SUBCUTANEOUS BIDapixaban 5 mg tab(s) (ELIQUIS) 5 mg ORAL BIDaspirin, enteric coated 81 mg tab(s) (ASPIRIN, ENTERIC COATED) 81 mg ORALDAILYhydrocortisone 25 mg suppository (HEMORRHOIDAL HC) 25 mg RECTAL q 12 Halbuterol 2.5 mg /3 mL (0.083 %) 2.5 mg (PROVENTIL) 2.5 mg INHALATION q 4H while awakealbuterol 2.5 mg /3 mL (0.083 %) 2.5 mg (PROVENTIL) 2.5 mg INHALATION q 2H PRNpantoprazole DR 40 mg tab(s) (PROTONIX) 40 mg ORAL BID AC (0600/1600)guaiFENesin 1,200 mg ER tab(s) (MUCINEX) 1,200 mg ORAL q 12 Hbudesonide 0.5 mg/2 mL 0.5 mg (PULMICORT) 0.5 mg INHALATION BIDmetHIMazole 5 mg tab(s) (TAPAZOLE) 5 mg ORAL DAILYondansetron (PF) 4 mg injection (ZOFRAN) 4 mg INTRAVENOUS q 6 H PRN0.9% NaCl 10 mL 10 mL INTRAVENOUS q 12 H0.9% NaCl 20 mL 20 mL INTRAVENOUS PRNcodeine-guaiFENesin 5-10 mL oral liquid (ROBITUSSIN AC) 5-10 mL ORAL q 6 HPRNdextrose 40 % 15 g (INSTA-GLUCOSE) 15 g ORAL PRNOrglucagon 1 mg injection (GLUCAGEN) 1 mg INTRAMUSCULAR PRNOrdextrose 50% in water 25 mL syringe 12.5 g INTRAVENOUS PRNHYDROcodone 5 mg - acetaminophen 325 mg tablet (NORCO) 1-2 tablet ORAL q 6H PRNmontelukast 10 mg tab(s) (SINGULAIR) 10 mg ORAL AT BEDTIMEmagnesium oxide 400 mg tab(s) (MAG-OX) 400 mg ORAL DAILYspironolactone 25 mg tab(s) (ALDACTONE) 25 mg ORAL BIDhydroCHLOROthiazide 25 mg tab(s) (HYDRODIURIL, ESIDRIX) 25 mg ORAL DAILYiv contrast (radiology procedure) INTRAVENOUS DIRECTED PRNCURRENT ALLERGIES:ALLERGIESAllerge n Reactions- Clindamycin Hives- Macrodantin [Nitrof* Other: See Comments Off-balance- Percocet [Oxycodone* Other: See Comments Nausea- Sulfa (Sulfonamide * Rash, Itching localized rash and itching all over- Zithromax [Azithrom* Rash, Itching localized rash and itching all over- Zenicef [Other] Rash, Itching itching in mouth; localized rash and itching all overPatient Vitals for the past 24 hrs: BP Temp Temp src Pulse Resp SpO2 Ovijgn21/15/17 1125 143/58 37.2 ?C (99 ?F) Oral 75 18 94 % -12/29/16 1030 - - - 77 18 97 % -12/29/16 1018 - - - 78 18 96 % -12/29/16 0803 126/50 37.3 ?C (99.1 ?F) Oral 76 18 96 % -12/29/16 0619 - - - 71 18 - -12/29/16 0602 - - - 75 19 95 % -12/29/16 0410 145/69 36.6 ?C (97.8 ?F) Oral 77 19 98 % 105.5 kg (232 lb 8oz)12/29/16 0126 - - - 70 20 98 % -12/28/16 2358 153/66 36.2 ?C (97.1 ?F) Oral 77 18 98 % -12/28/16 2122 - - - 72 18 - -12/28/16 2106 144/71 36.5 ?C (97.7 ?F) Oral 73 18 97 % -12/28/16 1454 145/77 36.5 ?C (97.7 ?F) Oral 77 18 99 % -12/28/16 1410 - - - 77 18 - -12/28/16 1402 - - - 67 - 96 % -Intake/Output Summary (Last 24 hours) at 12/29/16 1149Last data filed at 12/29/16 0648 Gross per 24 hourIntake 100 mlOutput 500 mlNet -400 mlOBJECTIVEPHYSICAL EXAM:BP 143/58 Pulse 75 Temp (Src) 99 (Oral) Resp 18 Ht 5' 2 (1.58m) Wt 232 lb 8 oz (105.5kg) SpO2 94% BMI 42.51 kg/(m2).General appearance: Morbidly obese, well appearing, alert, in no acutedistressNose/Sinuses: NegativeOropharynx: Lips, mucosa, and tongue normal, teeth and gums normal,oropharynx normalRespiratory: Positive findings: wheezingCardiovascular: Negative. RRR without murmur, gallop, or rubs. Noectopy, pulses are normal, no peripheral edemaAbdomen: Soft, non tender, non distended. Normal bowel sounds.Extremities: No deformities, no clubbingDATADiagnostic tests reviewed for today's visit, films/specimens werepersonally reviewed by me:Most recent labs and imaging results.cxr December 29, 2016Lines, tubes, and devices: ?PICC line in the SVC.Lungs and pleura: ?Right upper perihilar bronchial marking thickening maybe a small area of consolidation and appears new. Small patchy nodulardensity in the mid left lung is not seen on the 12/15/2016 CT and perhapsis an early infiltrate. No pleural effusions.Cardiomediastina l silhouette: ?Normal cardiomediastinal silhouette.CBC, Coags, BMP, Mg, PhosRecent Labs 12/28/1713WBC 13.99* 20.27* 14.19*HB 10.5* 11.8 12.1HCT 32.8* 36.2 37.7PLT 204 216 206NA 132 129* 131*K 3.6 3.3* 3.4*CHLOR 92* 87* 92*CO2 27 25 25BUN 48* 47* 45*CREAT 1.05 1.15 1.24GLUC 133* 223* 129*CA 8.7 8.9 8.6MG -- -- 2.4Liver Function, Amylase, AND LipaseRecent Labs 12/28/1713TPROT 5.3* 5.9* 5.6*ALB 3.2* 3.4* 3.3*ALT 60* 69* 65*AST 16 22 17ALKPHOS 70 85 81TBILI 0.5 0.7 0.8Cardiac EnzymesRecent Labs 6CK 39SIGNATURE: Fern Turcios MD PATIENT NAME: Laura StarkDATE: December 29, 2016 : 11:49 AM PAGER/CONTACT #: [phone] [facility] CONSULT PROG HNO ID: [id number] thor: Toma SyedhebService: GastroenterologyAuthor Type: PhysicianType: Consult Progress NoteFiled: 12/29/2016 12:38 PMNote Text:GASTROENTEROLOGY CONSULT PROGRESS NOTEPatient Name: Laura StarkMRN: [id number] DATE: December 29, 2016SERVICE TIME: 9:32 AMASSESSMENT1. Fecal leakage with constipation2. Rectal bleeding - suspect hemorrhoidal in the context of constipation-resolved3. GERD4. Mildly elevated ALT5. Asthma exacerbation / PNA (MRSA and E.coli)6. New pAFIB (Eliquis/Aspirin) s/p cardioversion . Hyperthyroidism??PLAN- Continue Hemorrhoidal HC 25 mg DC twice daily x 7 days (12/23/16)- Continue Psyllium 3 capsules daily- Continue Culturelle daily- Continue Protonix 40 mg po twice daily-?CHO diet- If rectal bleeding recurs then may need to consider colonoscopy- Monitor LFTs over time- No new GI recommendations- May discharge on above regimen from GI perspective once readyPatient seen and examined. Discussed with mid level provider. Starkey findingsconfirmed. Plan as outlined.Doing ok. Laying in bed. Friend at bedside. Denies any GI issues. Deniesshortness of breath currently. Awaiting neuro evaluation.Toma Funk MDNovember 201612:37 PM? INT ERVAL HPI: Discharge postponed due to patients complaints of leg painand weakness. Neurology has been consulted. Patient states that she hasnoticed a decrease in fecal leakage. Denies rectal bleeding. Stools aresoft consistency. Denies abdominal pain. Decreased appetite and did noteat breakfast this am. Feels as if respiratory status is worsening. Moistproductive cough and shortness of breath at rest as well.PHYSICAL EXAM:Patient Vitals for the past 24 hrs: BP Temp Temp src Pulse Resp SpO2 Hsbmjk87/15/17 0803 126/50 37.3 ?C (99.1 ?F) Oral 76 18 96 % -12/29/16 0410 145/69 36.6 ?C (97.8 ?F) Oral 77 19 98 % 105.5 kg (232 lb 8oz)12/28/16 2358 153/66 36.2 ?C (97.1 ?F) Oral 77 18 98 % -12/28/16 2106 144/71 36.5 ?C (97.7 ?F) Oral 73 18 97 % -12/28/16 1454 145/77 36.5 ?C (97.7 ?F) Oral 77 18 99 % -12/28/16 1149 (!) 128/46 36.8 ?C (98.2 ?F) Oral 79 18 98 % -GENERAL: Alert AND oriented x 3. Cooperative. NADEYES: No scleral icterusSKIN: [place] in color. No jaundiceLUNGS: Diminished bilateral bases posteriorly with rales throughout.Respirations slightly labored at restCARDIAC: RRRABDOMEN: BS x 4. Abdomen obese but soft, non-tender, non distended, nopalpable masses or organomegaly. No guarding or rebound tendernesselicitedEXTREMIT IES: Mild lower extremity pitting edemaMEDICATIONS:Current hospital medications:insulin lispro injection (rapid acting) (HumaLOG) SUBCUTANEOUS w MEALSinsulin lispro injection (rapid acting) (HumaLOG) SUBCUTANEOUS AT BEDTIMEpredniSONE 40 mg tab(s) (DELTASONE) 40 mg ORAL DAILYmorphine 1-2 mg injection 1-2 mg INTRAVENOUS q 4 H PRNpsyllium Husk 1.56 g cap(s) 1.56 g ORAL DAILYlactobacillus rhamnosus 10 billion cell (CULTURELLE) capsule 1 capsuleORAL DAILYflecainide 100 mg tab(s) (TAMBOCOR) 100 mg ORAL q 12 Hdiltiazem CD 360 mg cap(s) (CARDIZEM CD, CARTIA XT) 360 mg ORAL DAILYpiperacillin-tazobact am 3.375 g in dextrose (iso-osmotic) 50 mL (ZOSYN)3.375 g INTRAVENOUS q 6 Hinsulin lispro 7 Units injection (rapid acting) (HumaLOG) 7 UnitsSUBCUTANEOUS w MEALSinsulin NPH human 14 Units injection (intermediate acting) (NovoLIN N,HumuLIN N) 14 Units SUBCUTANEOUS BIDapixaban 5 mg tab(s) (ELIQUIS) 5 mg ORAL BIDaspirin, enteric coated 81 mg tab(s) (ASPIRIN, ENTERIC COATED) 81 mg ORALDAILYhydrocortisone 25 mg suppository (HEMORRHOIDAL HC) 25 mg RECTAL q 12 Halbuterol 2.5 mg /3 mL (0.083 %) 2.5 mg (PROVENTIL) 2.5 mg INHALATION q 4H while awakealbuterol 2.5 mg /3 mL (0.083 %) 2.5 mg (PROVENTIL) 2.5 mg INHALATION q 2H PRNpantoprazole DR 40 mg tab(s) (PROTONIX) 40 mg ORAL BID AC (0600/1600)guaiFENesin 1,200 mg ER tab(s) (MUCINEX) 1,200 mg ORAL q 12 Hbudesonide 0.5 mg/2 mL 0.5 mg (PULMICORT) 0.5 mg INHALATION BIDmetHIMazole 5 mg tab(s) (TAPAZOLE) 5 mg ORAL DAILYondansetron (PF) 4 mg injection (ZOFRAN) 4 mg INTRAVENOUS q 6 H PRN0.9% NaCl 10 mL 10 mL INTRAVENOUS q 12 H0.9% NaCl 20 mL 20 mL INTRAVENOUS PRNcodeine-guaiFENesin 5-10 mL oral liquid (ROBITUSSIN AC) 5-10 mL ORAL q 6 HPRNdextrose 40 % 15 g (INSTA-GLUCOSE) 15 g ORAL PRNglucagon 1 mg injection (GLUCAGEN) 1 mg INTRAMUSCULAR PRNdextrose 50% in water 25 mL syringe 12.5 g INTRAVENOUS PRNHYDROcodone 5 mg - acetaminophen 325 mg tablet (NORCO) 1-2 tablet ORAL q 6H PRNmontelukast 10 mg tab(s) (SINGULAIR) 10 mg ORAL AT BEDTIMEmagnesium oxide 400 mg tab(s) (MAG-OX) 400 mg ORAL DAILYspironolactone 25 mg tab(s) (ALDACTONE) 25 mg ORAL BIDhydroCHLOROthiazide 25 mg tab(s) (HYDRODIURIL, ESIDRIX) 25 mg ORAL DAILYiv contrast (radiology procedure) INTRAVENOUS DIRECTED PRNLABS:CBC, Coags, BMP, Mg, PhosRecent Labs 4212/27/1704WBC 13.99* 20.27* 14.19*HB 10.5* 11.8 12.1HCT 32.8* 36.2 37.7PLT 204 216 206NA 132 129* 131*K 3.6 3.3* 3.4*CHLOR 92* 87* 92*CO2 27 25 25BUN 48* 47* 45*CREAT 1.05 1.15 1.24GLUC 133* 223* 129*CA 8.7 8.9 8.6MG -- -- 2.4Liver Function, Amylase, AND LipaseRecent Labs 12/28/1713TPROT 5.3* 5.9* 5.6*ALB 3.2* 3.4* 3.3*ALT 60* 69* 65*AST 16 22 17ALKPHOS 70 85 81TBILI 0.5 0.7 0.8MISC LABS:Component Latest Ref Rng AND Units 12/20/2016Resp Virus Panel Source ?? Nasopharyngeal SwabInfluenza A Virus Negative NegativeInfluenza A H1N1 2009 Negative NegativeInfluenza B Virus Negative NegativeRespiratory Syncytial Virus A Negative NegativeRespiratory Syncytial Virus B Negative NegativeParainfluenza Virus 1 Negative NegativeParainfluenza Virus 2 Negative NegativeParainfluenza Virus 3 Negative NegativeHuman Metapneumovirus Negative NegativeRhinovirus Negative NegativeAdenovirus B/E Negative NegativeAdenovirus C Negative NegativeSpecimen Source. ?? Nasopharyngeal SwabInfluenza A PCR ?? Negative for Influenza A by RT PCRInfluenza B PCR ?? Negative for Influenza B by RT PCRRSV PCR ?? Negative for RSV by RT PCR??RADIOLOGY?12/15/16 CT ChestIMPRESSION:1. ??Mild atelectasis within bilateral lungs. Otherwise, no acuteabnormality.2. Ovoid area of fat attenuation interposed between right and left atriaconsistent with lipomatous hypertrophy of interatrial septum.??12/23/16 KUBNegative. No retained stool is seen to suggest constipation.??MOST RECENT EGDRemote: hx gastritis at that time??MOST RECENT COLONOSCOPY: 01/09/2013. (Peter Lerma MD - [place]).Screening1. The perianal and digital rectal examinations were normal.2. The colon (entire examined portion) was moderately tortuous.3. The exam was otherwise without abnormality.4. Good bowel prep?SIGNATURE: Nisha Anam Scott CNPDATE: December 29, 2016TIME: 9:32 AM [facility] CONSULT PROG HNO ID: [id number] thor: Mia Blevinsice: EndocrinologyAuthor Type: PhysicianType: Consult Progress NoteFiled: 12/29/2016 12:51 PMNote Text:DIABETES PROGRESS NOTEPATIENT NAME: Laura StakrMRN: [id number] DATE: 12/29/2016ASSESSMENT AND PLAN Ms. Stark is a 61 year old female admitted to the hospital with A.fiband Hyperthyroidism.1) Hyperthyroidism:Likely toxic nodulePatient presented with new onset A.FibTSI was negativeRecently underwent CT with contrast, therefore, will not able to do RAIuptake/scan at this timeContinue Methimazole 5 mg daily2) Thyroid nodule:MNG with dominant left thyroid nodulePer pt she had US guided FNA of this nodule, [facility] and if needed consider US guided FNA once hyperthyroid and Afib isunder control as outpatient?3) steroid induced hyperglycemia:Now on daily prednisoneContinue NPH 14 units BIDContinue humalog 7 units with meals and sliding scaleMonitor accucheck AC/HSNotify Endocrinology if BG > 200 or < 80.Will continue to follow the patient and make further recommendationsaccordingly .Interval HPI+chest congestion, +cough, no sputumSteroid switched to PO prednisone 40 mg dailyPAST MEDICAL HISTORY:PAST MEDICAL HISTORYDiagnosis Date- Abnormal mammogram, unspecified 12/06/2007- 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- DVT (deep venous thrombosis) (HCC) 1995 Rt lower leg- Embolism and thrombosis of unspecified site 10/28/2005- PE (pulmonary embolism)- Recurrent ventral incisional hernia 08/03/2012- Unspecified asthma(493.90)- Unspecified essential hypertensionCURRENT MEDICATION:Current Facility-Administered Medications:insulin lispro injection (rapid acting) (HumaLOG) SUBCUTANEOUS w MEALSSuman Mima 2 Units at 12/29/16 0916insulin lispro injection (rapid acting) (HumaLOG) SUBCUTANEOUS AT BEDTIMESuman Mima 1 Units at 12/28/16 2103predniSONE 40 mg tab(s) (DELTASONE) 40 mg ORAL DAILY Yatish Jovanna 40 mg at102/29/16 0909morphine 1-2 mg injection 1-2 mg INTRAVENOUS q 4 H PRN Yatish Jovanna 2 mgat 12/27/16 0355psyllium Husk 1.56 g cap(s) 1.56 g ORAL DAILY Yatish Jovanna 1.56 g at102/29/16 0909lactobacillus rhamnosus 10 billion cell (CULTURELLE) capsule 1 capsuleORAL DAILY Vivian (Forensic Investigator) Blackwell Reece 1 capsule at 12/29/16 0909flecainide 100 mg tab(s) (TAMBOCOR) 100 mg ORAL q 12 H Nixon Fernie Fklisaag812 mg at 12/29/16 0909diltiazem CD 360 mg cap(s) (CARDIZEM CD, CARTIA XT) 360 mg ORAL DAILYMatthew A Micheal 360 mg at 12/29/16 0910piperacillin-tazobacta m 3.375 g in dextrose (iso-osmotic) 50 mL (ZOSYN)3.375 g INTRAVENOUS q 6 H Maged Mcginnis MD 3.375 g at 12/29/16 0525insulin lispro 7 Units injection (rapid acting) (HumaLOG) 7 UnitsSUBCUTANEOUS w MEALS Johnny Culver MD 7 Units at 12/29/16 0918insulin NPH human 14 Units injection (intermediate acting) (NovoLIN N,HumuLIN N) 14 Units SUBCUTANEOUS BID Johnny Culver MD 14 Units at102/28/16 2103apixaban 5 mg tab(s) (ELIQUIS) 5 mg ORAL BID Yatish Jovanna 5 mg at [id number], enteric coated 81 mg tab(s) (ASPIRIN, ENTERIC COATED) 81 mg ORALDAILY Yatish Jovanna 81 mg at 12/29/16 0910hydrocortisone 25 mg suppository (HEMORRHOIDAL HC) 25 mg RECTAL q 12 HAlicia (Forensic Investigator) Blackwell Reece 25 mg at 12/28/16 2055albuterol 2.5 mg /3 mL (0.083 %) 2.5 mg (PROVENTIL) 2.5 mg INHALATION q 4H while awake Jayasameer Darby Rai 2.5 mg at 12/29/16 0604albuterol 2.5 mg /3 mL (0.083 %) 2.5 mg (PROVENTIL) 2.5 mg INHALATION q 2H PRN Jaya Darby Austin 2.5 mg at 12/29/[address] 40 mg tab(s) (PROTONIX) 40 mg ORAL BID AC (0600/1600)Jaya Darby Austin 40 mg at 12/29/16 0524guaiFENesin 1,200 mg ER tab(s) (MUCINEX) 1,200 mg ORAL q 12 H Elvia (Pa)Movens 1,200 mg at 12/29/16 0910budesonide 0.5 mg/2 mL 0.5 mg (PULMICORT) 0.5 mg INHALATION BID HardeepSingroe Austin 0.5 mg at 12/29/16 0608metHIMazole 5 mg tab(s) (TAPAZOLE) 5 mg ORAL DAILY Mia Hasan 5 mg at102/29/16 0911ondansetron (PF) 4 mg injection (ZOFRAN) 4 mg INTRAVENOUS q 6 H PRN YatishGoyal 4 mg at 12/24/16 24602.9% NaCl 10 mL 10 mL INTRAVENOUS q 12 H Yatish Jovanna 10 mL at 9090.9% NaCl 20 mL 20 mL INTRAVENOUS PRN Yatish Jovanna 20 mL at 12/24/16 0700codeine-guaiFENesin 5-10 mL oral liquid (ROBITUSSIN AC) 5-10 mL ORAL q 6 HPRN Yatish Goyaldextrose 40 % 15 g (INSTA-GLUCOSE) 15 g ORAL PRN Yatish GoyalOrglucagon 1 mg injection (GLUCAGEN) 1 mg INTRAMUSCULAR PRN Yatish GoyalOrdextrose 50% in water 25 mL syringe 12.5 g INTRAVENOUS PRN Yatish GoyalHYDROcodone 5 mg - acetaminophen 325 mg tablet (NORCO) 1-2 tablet ORAL q 6H PRN Yatish Jovanna 2 tablet at 12/28/162352montelukast 10 mg tab(s) (SINGULAIR) 10 mg ORAL AT BEDTIME Yatish Jovanna 10mg at 12/28/162054magnesium oxide 400 mg tab(s) (MAG-OX) 400 mg ORAL DAILY Yatish Jovanna 400mg at 12/29/16 09spironolactone 25 mg tab(s) (ALDACTONE) 25 mg ORAL BID Yatish Jovanna 25 mgat 12/29/16 0910hydroCHLOROthiazide 25 mg tab(s) (HYDRODIURIL, ESIDRIX) 25 mg ORAL DAILYYatish Jovanna 25 mg at 12/29/16 0910iv contrast (radiology procedure) INTRAVENOUS DIRECTED PRN Marisol(Neda) RussoCURRENT ALLERGIES: Allergies As of Date: 12/15/2016Allergen Noted ReactionCLINDAMYCIN 10/14/2005 HivesMACRODANTIN [NITROFURANTOIN MACRO*10/14/2005 Other: See CommentsPERCOCET [OXYCODONE-ACETAMINOPHEN]0 10/14/2005 Other: See CommentsSULFA (SULFONAMIDE ANTIBIOTICS) 10/14/2005 Rash and ItchingZITHROMAX [AZITHROMYCIN] 10/14/2005 Rash and ItchingZENICEF [OTHER] 10/14/2005 Rash and ItchingFully Assessed 12/15/2016COMPLETE REVIEW OF SYSTEMS:General: no fever, chills or acute changes in weight in the last 6 monthsSkin: no rashes, pruritis or dry skinCardiac: denies chest pain, heart palpitations or orthopneaPulmonary: denies wheezing, productive cough or exertional dyspneaGI: denies nausea, vomiting, diarrhea or constipationNeuro: denies numbnes/tingling in hands or feet and denies seizuresMusc: denies history of upper or lower extremity weaknessEndocrine: denies polyuria, polydipsia, nocturia, blurry vision orexcessive fatigueHematology: Negative for anemia, easy bleeding and bruising.OBJECTIVEPHYSICAL EXAM:BP 126/50 Pulse 76 Temp 37.3 ?C (99.1 ?F) (Oral) Resp 18 Ht 157.5 cm(5' 2) Wt 105.5 kg (232 lb 8 oz) SpO2 96% BMI 42.52 kg/s0Gvuttjc: Well appearing, alert, in no acute distress, well-hydrated, wellnourished.Skin: skin color, texture, turgor normal, no rashes or lesions.Heart: RRR without murmur, gallop, or rubs. No ectopyPulmonary: Lungs clear to auscultation. No wheezing, rhonchi, ralesAbdomen: obese, non-tender, positive bowel soundsExtremities: no edema, no calluses or ulcers present.Peripheral Pulses: posterior tibial and doralis pedis pulses 2+ andsymmetricalDATA:Diagnos tic tests reviewed for today:Recent Labs 12/29/17192512/28/17108 045 729 600312/26/[id number] 162* 190* 181* 277* 343* 201* 187* 137* 167* 149* 204* 155* 102*245*Glucose, Point of CareDate Value Ref Range Ennpqn5912/29/2016 162 (A) 65 - 100 mg/dL Final SIGNATURE: Mia Correa, MDDATE: December 29, 2016 Normal [facility] Comp Metabolic Panelon 12-29 Alanine aminotransferase (ALT) 60 U/L High 0-45 [facility] Comment on above: Performed By: #### C BCDIF, PT, PTT, CMP, MG1 ####[facility] [address] [place] [phone] Albumin 3.2 g/dL Low 3.5-5.0 [facility] Comment on above: Performed By: #### C BCDIF, PT, PTT, CMP, MG1 ####[facility] [address] [place] [phone] Alkaline phosphatase (ALP) 70 U/L Normal 40-150 [facility] Comment on above: Performed By: #### C BCDIF, PT, PTT, CMP, MG1 ####[facility] [address] [place] [phone] Anion gap 13 mmol/L Normal 0-15 [facility] Comment on above: Performed By: #### C BCDIF, PT, PTT, CMP, MG1 ####[facility] [address] [place] [address] Aspartate aminotransferase (AST) 16 U/L Normal 7-40 [facility] Comment on above: Performed By: #### C BCDIF, PT, PTT, CMP, MG1 ####[facility] [address] [place] [address] Bilirubin (total) 0.5 mg/dL Normal 0.0-1.5 [facility] Comment on above: Performed By: #### C BCDIF, PT, PTT, CMP, MG1 ####[facility] [address] [place] [address] Calcium 8.7 mg/dL Normal 8.5-10.5 [facility] Comment on above: Performed By: #### C BCDIF, PT, PTT, CMP, MG1 ####[facility] [address] [place] [address] Chloride 92 mmol/L Low 98-110 [facility] Comment on above: Performed By: #### C BCDIF, PT, PTT, CMP, MG1 ####[facility] [address] [place] [address] CO2 27 mmol/L Normal 23-32 [facility] Comment on above: Performed By: #### C BCDIF, PT, PTT, CMP, MG1 ####[facility] [address] [place] [address] Creatinine 1.05 mg/dL Normal 0.70-1.40 [facility] Comment on above: Performed By: #### C BCDIF, PT, PTT, CMP, MG1 ####[facility] [address] [place] [address] eGFR (non-black) 53 . Normal [facility] Comment on above: Result Comment: eGFR (Estimated GFR) Units of measure: mL/min/1.73 meters squaredeGFR is derived from the reexpressed MDRD Study equation using the following parameters: serum creatinine, age, gender and race. The creatinine assay has been calibrated to be traceable to IDMS.An eGFR <60 mL/min/1.73m2 for >3 months is consistent with chronic kidney disease. Refer to KDOQI guidelines for clinical interpretation.In patients with unstable renal function, e.g. those with acute kidney injury, the eGFR may not accurately reflect actual GFR. Performed By: #### C BCDIF, PT, PTT, CMP, MG1 ####[facility] [address] [place] [address] eGFR (non-black) mL/min/{1.73_m2} Normal [facility] Comment on above: Performed By: #### C BCDIF, PT, PTT, CMP, MG1 ####[facility] [address] [place] [address] Glucose mass conc 133 mg/dL High 65-100 [facility] Comment on above: Performed By: #### C BCDIF, PT, PTT, CMP, MG1 ####[facility] [address] [place] [address] Potassium molar conc 3.6 mmol/L Normal 3.5-5.0 [facility] Comment on above: Performed By: #### C BCDIF, PT, PTT, CMP, MG1 ####[facility] [address] [place] [address] Protein 5.3 g/dL Low 6.0-8.4 [facility] Comment on above: Performed By: #### C BCDIF, PT, PTT, CMP, MG1 ####[facility] [address] [place] [address] Sodium 132 mmol/L Normal 132-148 [facility] Comment on above: Performed By: #### C BCDIF, PT, PTT, CMP, MG1 ####[facility] [address] [place] [address] Urea nitrogen 48 mg/dL High 8-25 [facility] Comment on above: Performed By: #### C BCDIF, PT, PTT, CMP, MG1 ####[facility] [address] [place] [address] MRI LUMBAR SPINE WO IVCONon 12-29-2016 MRI LUMBAR SPINE WO IVCON * * *Final Report* * *DATE OF EXAM: Dec 29 2016 8:02PM MDM 0303 - MRI LUMBAR SPINE WO IVCON / REASON: Lower extremity weakness * * * * Physician Interpretation * * * * MRI LUMBAR SPINE WO IVCONHISTORY: Lower extremity weakness.COMPARISON: None.TECHNIQUE: Routine lumbosacral spine MR protocol without gadolinium.RESULT:MR LUMBAR:Counting reference: Lumbosacral junction. For the purposes of this report, L4-5 is considered the level of the iliac crest.Alignment: Prominent thoracolumbar levoscoliosis with apex of the curvature at L2. Grade 1 spondylolisthesis at L5-S1 and minimal retrolisthesis of L2 on L3 and L1 on L2. Moderate disc space narrowing at L3-4 and L5-S1 and severe disc space narrowing at L2-3 through T9-10.Bone marrow signal/fracture: No evidence of pathologic marrow infiltration. No evidence of prior fracture.Conus: The conus is within normal limits of signal intensity and morphology.Paraspinal soft tissues: The paraspinal soft tissues are within normal limits.Lower thoracic spine: Minimal disc bulging at T10-11 and T11-12 without significant canal stenosis at a level.T12-L1: Minimal disc bulging and mild facet degenerative change without significant canal or foraminal stenosis.L1-L2: Mild retrolisthesis and facet degenerative change with mild canal stenosis. Facet degenerative changes and rostrocaudal facet subluxation cause mild right foraminal stenosis.L2-L3: Minimal retrolisthesis and mild facet degenerative changes without significant canal stenosis. Facet degenerative changes and rostrocaudal facet subluxation cause moderate right foraminal stenosis.L3-L4: Facet degenerative changes with mild canal stenosis. Neural foramina remain patent.L4-L5: Facet degenerative changes with mild canal stenosis. Facet degenerative changes and rostrocaudal facet subluxation cause moderate left foraminal stenosis. Right neural foramen is patent.L5-S1: Facet degenerative changes and spondylolisthesis without significant canal stenosis. Neural foramina remain patent.Sacrum and iliac wings: The visualized sacrum and iliac wings are within normal limits.IMPRESSION:Prominen t thoracolumbar scoliosis, mild facet degenerative changes and degenerative disc disease without significant canal stenosis.Moderate right L2-3 and left L4-5 and mild right L1-2 bony foraminal stenosis.Breakdown Worker: ALBARO Transcribe Date/Time: Dec 29 2016 8:54PDictated by : HARDIK FIGUEROA MDThis examination was interpreted and the report reviewed and electronically signed by: HARDIK FIGUEROA MD on Dec 29 2016 9:00PM [id number] Normal [facility] NT Pro BNPon 12-29-2016 PRO B Natr Peptide 378 pg/mL High <125 [facility] Comment on above: Performed By: #### C BCDIF, PT, PTT, CMP, MG1 ####[facility] [address] Occult Blood Screenon 2016 Occult Blood Screen Negative Normal [facility] Comment on above: Performed By: #### C BCDIF, PT, PTT, CMP, MG1 ####[facility] [address] Occult Blood Source: Stool Normal [facility] Comment on above: Performed By: #### C BCDIF, PT, PTT, CMP, MG1 ####[facility] [address] [place] [phone] PROGRESSon 12-29-2016 PROGRESS HNO ID: [id number] thor: Kiara Fleming: General Internal MedicineAuthor Type: PhysicianType: Progress NotesFiled: 12/29/2016 9:52 AMNote Text:INTERNAL MEDICINE PROGRESS NOTEADMITTING PHYSICIAN: Kiara ResendizCHIALENA COMPLAINT: Leg weakness and ankle/knee pain.Current Facility-Administered Medications:insulin lispro injection (rapid acting) (HumaLOG) SUBCUTANEOUS w MEALSinsulin lispro injection (rapid acting) (HumaLOG) SUBCUTANEOUS AT BEDTIMEpredniSONE 40 mg tab(s) (DELTASONE) 40 mg ORAL DAILYmorphine 1-2 mg injection 1-2 mg INTRAVENOUS q 4 H PRNpsyllium Husk 1.56 g cap(s) 1.56 g ORAL DAILYlactobacillus rhamnosus 10 billion cell (CULTURELLE) capsule 1 capsuleORAL DAILYflecainide 100 mg tab(s) (TAMBOCOR) 100 mg ORAL q 12 Hdiltiazem CD 360 mg cap(s) (CARDIZEM CD, CARTIA XT) 360 mg ORAL DAILYpiperacillin-tazobact am 3.375 g in dextrose (iso-osmotic) 50 mL (ZOSYN)3.375 g INTRAVENOUS q 6 Hinsulin lispro 7 Units injection (rapid acting) (HumaLOG) 7 UnitsSUBCUTANEOUS w MEALSinsulin NPH human 14 Units injection (intermediate acting) (NovoLIN N,HumuLIN N) 14 Units SUBCUTANEOUS BIDapixaban 5 mg tab(s) (ELIQUIS) 5 mg ORAL BIDaspirin, enteric coated 81 mg tab(s) (ASPIRIN, ENTERIC COATED) 81 mg ORALDAILYhydrocortisone 25 mg suppository (HEMORRHOIDAL HC) 25 mg RECTAL q 12 Halbuterol 2.5 mg /3 mL (0.083 %) 2.5 mg (PROVENTIL) 2.5 mg INHALATION q 4H while awakealbuterol 2.5 mg /3 mL (0.083 %) 2.5 mg (PROVENTIL) 2.5 mg INHALATION q 2H PRNpantoprazole DR 40 mg tab(s) (PROTONIX) 40 mg ORAL BID AC (0600/1600)guaiFENesin 1,200 mg ER tab(s) (MUCINEX) 1,200 mg ORAL q 12 Hbudesonide 0.5 mg/2 mL 0.5 mg (PULMICORT) 0.5 mg INHALATION BIDmetHIMazole 5 mg tab(s) (TAPAZOLE) 5 mg ORAL DAILYondansetron (PF) 4 mg injection (ZOFRAN) 4 mg INTRAVENOUS q 6 H PRN0.9% NaCl 10 mL 10 mL INTRAVENOUS q 12 H0.9% NaCl 20 mL 20 mL INTRAVENOUS PRNcodeine-guaiFENesin 5-10 mL oral liquid (ROBITUSSIN AC) 5-10 mL ORAL q 6 HPRNdextrose 40 % 15 g (INSTA-GLUCOSE) 15 g ORAL PRNOrglucagon 1 mg injection (GLUCAGEN) 1 mg INTRAMUSCULAR PRNOrdextrose 50% in water 25 mL syringe 12.5 g INTRAVENOUS PRNHYDROcodone 5 mg - acetaminophen 325 mg tablet (NORCO) 1-2 tablet ORAL q 6H PRNmontelukast 10 mg tab(s) (SINGULAIR) 10 mg ORAL AT BEDTIMEmagnesium oxide 400 mg tab(s) (MAG-OX) 400 mg ORAL DAILYspironolactone 25 mg tab(s) (ALDACTONE) 25 mg ORAL BIDhydroCHLOROthiazide 25 mg tab(s) (HYDRODIURIL, ESIDRIX) 25 mg ORAL DAILYiv contrast (radiology procedure) INTRAVENOUS DIRECTED PRNINTERVAL HISTORY OF PRESENT ILLNESS: No n/v/d.S/p CVN, remains in NSR,No orthopnea, pnd,cpain, fever, chills.Consult notes reviewed.OBJECTIVEPHYSICAL EXAM:Blood pressure 126/50, pulse 76, temperature 37.3 ?C (99.1 ?F),temperature source Oral, resp. rate 18, height 157.5 cm (5' 2), pxzerm938.5 kg (232 lb 8 oz), SpO2 96 %.Body mass index is 42.52 kg/(m2).GENERAL: Morbidly Obese, Alert, no DistressNECK: SuppleLUNGS: decreased a/e, occ ronchi.CARDIAC: s1s2: regABDOMEN: Soft, nontenderEXTREMITIES: Extremities normal, no deformities, edema, clubbing or skindiscoloration. Good capillary refill.NEURO: Alert, oriented X 3, non focal.PULSES: 2+ radialDATA:Diagnostic tests reviewed for today's visit:Most recent labs and imaging results.ASSESSMENT/PLANAct aravind Problems: Acute Asthma exacerbation with HCAP? recent sputum cx with MRSA and E.coli: cont po prednisone and continue iv zosyn, Continue nebs. Noted Pulmonaryeval. Continue codeine cough syrup, Weakness POA: Yes Assessment AND Plan: due to above. Obesity, Class III, BMI >= 40 (morbid obesity) E66.01 Assessment AND Plan: encourage wt. Loss. Hyperglycemia due to steroids: Continue basal and SSI.PAF:appreciate Endo eval for hyperthyroidism,Appreciate : Cardio eval, s/p CVN.Leg weakness:?promixal myopathy,chk CKP, Aldolase and uric acid,Neuro eval.Noted PT/OT eval.D/c planning.Disp; SNF.SIGNATURE: Kiara Nugent MD PATIENT NAME: Laura Stark PAGER/CONTACT #: Normal [facility] Rheumatoid Factoron 12-30-19 17 Rheumatoid Factor <10 Normal <16 [facility] Comment on above: Performed By: #### C BCDIF, PT, PTT, CMP, MG1 ####[facility] [address] [phone] Sed Rate Westergrenon 2016 Sed Rate Westergren 46 mm/hr High 0-20 [facility] Comment on above: Performed By: #### C BCDIF, PT, PTT, CMP, MG1 ####[facility] [address] [place] [phone] Uric Acidon 12-29-2016 Urate 3.5 mg/dL Normal 2.0-7.0 [facility] Comment on above: Performed By: #### C BCDIF, PT, PTT, CMP, MG1 ####[facility] [address] [place] [phone] XR CHEST 1V FRONTALon 2016 XR CHEST 1V FRONTAL * * *Final Report* * *DATE OF EXAM: Dec 29 2016 11:14AM MDX 5290 - XR CHEST 1V FRONTAL / REASON: Cough in adult * * * * Physician Interpretation * * * * EXAMINATION: CHEST RADIOGRAPH (SINGLE VIEW AP OR PA)Clinical History: Cough in adultM: XC1_3Comparison: 12/22/2016RESULT:Lines, tubes, and devices: PICC line in the SVC.Lungs and pleura: Right upper perihilar bronchial marking thickening may be a small area of consolidation and appears new. Small patchy nodular density in the mid left lung is not seen on the 12/15/2016 CT and perhaps is an early infiltrate. No pleural effusions.Cardiomediastina l silhouette: Normal cardiomediastinal silhouette.Other:IMPRESSIO N:Suspect bilateral infiltrates, which can be followed up.Breakdown Worker: ALBARO Transcribe Date/Time: Dec 29 2016 11:17ADictated by : JUAN RAMÍREZ MDThicon examination was interpreted and the report reviewed and electronically signed by: JUAN RAMÍREZ MD on Dec 29 2016 11:20AM [id number] Normal [facility] ALLIED HEALTHon 12-28-2016 ALLIED HEALTH HNO ID: [id number] thor: Columba Singletary: (none)Author Type: (none)Type: Allied HealthFiled: 12/28/2016 9:04 AMNote Text:HEALING SERVICESTHERAPY NOTESERVICE DATE: 12/28/2016INTERVENTIONAL FOCUS: RelaxationVisit With: Patient Urgency of Visit: Routine Type of Visit:Follow-up VisitINTERVENTIONPt introduced to services 11/9 with information left at bedside. Ptcontinues to have no HS needs but knows how to reach me if needed.[place] PlanNext Session: If consulted by ptReferred to Healing Services Team: YesSIGNATURE: Columba Martinez PATIENT NAME: Laura StarkDATE: December 28, 2016 : 9:01 AM PAGER/CONTACT #: [phone] Normal [facility] CBCon 12-28-2016 Erythrocyte distribution width Auto Ratio (RBC) 17.1 % High 11.5-15.0 [facility] Comment on above: Performed By: #### C BCDIF, PT, PTT, CMP, MG1 ####[facility] [address] [place] [address] Erythrocytes (RBC) 4.22 10*6/uL Normal 3.90-5.20 [facility] Comment on above: Performed By: #### C BCDIF, PT, PTT, CMP, MG1 ####[facility] [address] [place] [address] Hematocrit (HCT) 36.2 % Normal 36.0-46.0 [facility] Comment on above: Performed By: #### C BCDIF, PT, PTT, CMP, MG1 ####[facility] [address] [place] [address] Hemoglobin mass conc (Bld) 11.8 g/dL Normal 11.5-15.5 [facility] Comment on above: Performed By: #### C BCDIF, PT, PTT, CMP, MG1 ####[facility] [address] [place] [address] MCH 28.0 pG Normal 26.0-34.0 [facility] Comment on above: Performed By: #### C BCDIF, PT, PTT, CMP, MG1 ####[facility] [address] [place] [address] MCHC mass conc (RBC) 32.6 g/dL Normal 30.5-36.0 [facility] Comment on above: Performed By: #### C BCDIF, PT, PTT, CMP, MG1 ####[facility] [address] [place] [address] MCV 85.8 fL Normal 80.0-100.0 [facility] Comment on above: Performed By: #### C BCDIF, PT, PTT, CMP, MG1 ####[facility] [address] [place] [address] Platelet mean volume (PMV) 10.3 fL Normal 9.0-12.7 [facility] Comment on above: Performed By: #### C BCDIF, PT, PTT, CMP, MG1 ####[facility] [address] [place] [address] Platelets 216 10*3/uL Normal 150-400 [facility] Comment on above: Performed By: #### C BCDIF, PT, PTT, CMP, MG1 ####[facility] [address] [place] [address] WBC (Leukocytes) 20.27 10*3/uL High 3.70-11.00 [facility] Comment on above: Performed By: #### C BCDIF, PT, PTT, CMP, MG1 ####[facility] [address] [place] [address] CONSULT PROGon 12-28-2016 CONSULT PROG HNO ID: [id number] thor: Toma GoldbergbService: GastroenterologyAuthor Type: PhysicianType: Consult Progress NoteFiled: 12/28/2016 1:34 PMNote Text:GASTROENTEROLOGY CONSULT PROGRESS NOTEPatient Name: Laura StarkMRN: [id number] DATE: December 28, 2016SERVICE TIME: 10:18 AMASSESSMENT1. Fecal leakage with constipation2. Rectal bleeding - suspect hemorrhoidal in the context of constipation-resolved3. GERD4. Mildly elevated ALT5. Asthma exacerbation / PNA (MRSA and E.coli)6. New pAFIB (Eliquis/Aspirin) s/p cardioversion . Hyperthyroidism??PLAN- Continue Hemorrhoidal HC 25 mg DC twice daily x 7 days (12/23/16)- Continue psyllium 3 capsules daily- Continue Culturelle daily- Continue Protonix 40 mg po twice daily- CHO diet- If rectal bleeding recurs then may need to consider colonoscopy- Monitor LFTs over time- Stable GI status: may discharge from GI perspectivePatient seen and examined. Discussed with mid level provider. Starkey findingsconfirmed. Plan as outlined.No GI complaints. Feels tired. Tolerating diet. No hematochezia.Discharge planning. Outpt f/up.Toma Funk MDNovember :33 PM INTE RVAL HPI: She reports feeling weak today and was unable to stand touse the bedside commode. She reports overall the fecal leakage seems to beimproving. She had a soft, brown stool yesterday. She reports no furtherrectal bleeding (it has been at least 72 hours since last BRB). She didtake the hemorrhoid suppository yesterday (has not been takingconsistently due to fecal leakage). She denies nausea or abdominal pain.She ate a good breakfast today. She is s/p successful DCC yesterday.PHYSICAL EXAM:Patient Vitals for the past 24 hrs: BP Temp Temp src Pulse Resp SpO2 Znfsry13/14/17 1010 - - - 83 18 96 % -12/28/16 0744 144/50 37 ?C (98.6 ?F) Oral 78 18 95 % -12/28/16 0356 123/70 36.4 ?C (97.6 ?F) Oral 72 18 96 % -12/28/16 0001 141/62 36.4 ?C (97.5 ?F) Oral 79 18 96 % -12/27/16 2044 118/56 36.7 ?C (98.1 ?F) Oral 85 18 95 % -12/27/16 1357 130/66 37 ?C (98.6 ?F) Oral 80 18 98 % -12/27/16 1330 111/55 - - 80 16 97 % -12/27/16 1315 115/55 37.5 ?C (99.5 ?F) Temporal Art 84 16 97 % -12/27/16 1300 118/56 - - 82 16 97 % -12/27/16 1245 113/55 - - 80 16 97 % -12/27/16 1242 101/51 37.2 ?C (99 ?F) Temporal Art 80 16 98 % -12/27/16 1155 140/70 37.1 ?C (98.7 ?F) Oral 97 20 96 % -GENERAL: Alert AND oriented x 3. Cooperative. NADEYES: No scleral icterusSKIN: [place] in color. No jaundiceLUNGS: Diminished bilateral bases posteriorly with expiratory wheezingLLL?CARDIAC: RRRABDOMEN: BS x 4. Abdomen obese but soft, non-tender, non distended, nopalpable masses or organomegaly. No guarding or rebound tendernesselicitedEXTREMIT IES: No upper or lower extremity edemaMEDICATIONS:Current hospital medications:morphine 1-2 mg injection 1-2 mg INTRAVENOUS q 4 H PRNmethylPREDNISolone sod succinate(PF) 40 mg injection (Solu-MEDROL) 40 mgINTRAVENOUS q 12 Hpsyllium Husk 1.56 g cap(s) 1.56 g ORAL DAILYlactobacillus rhamnosus 10 billion cell (CULTURELLE) capsule 1 capsuleORAL DAILYflecainide 100 mg tab(s) (TAMBOCOR) 100 mg ORAL q 12 Hdiltiazem CD 360 mg cap(s) (CARDIZEM CD, CARTIA XT) 360 mg ORAL DAILYpiperacillin-tazobact am 3.375 g in dextrose (iso-osmotic) 50 mL (ZOSYN)3.375 g INTRAVENOUS q 6 Hinsulin lispro 7 Units injection (rapid acting) (HumaLOG) 7 UnitsSUBCUTANEOUS w MEALSinsulin NPH human 14 Units injection (intermediate acting) (NovoLIN N,HumuLIN N) 14 Units SUBCUTANEOUS BIDapixaban 5 mg tab(s) (ELIQUIS) 5 mg ORAL BIDaspirin, enteric coated 81 mg tab(s) (ASPIRIN, ENTERIC COATED) 81 mg ORALDAILYhydrocortisone 25 mg suppository (HEMORRHOIDAL HC) 25 mg RECTAL q 12 Halbuterol 2.5 mg /3 mL (0.083 %) 2.5 mg (PROVENTIL) 2.5 mg INHALATION q 4H while awakealbuterol 2.5 mg /3 mL (0.083 %) 2.5 mg (PROVENTIL) 2.5 mg INHALATION q 2H PRNpantoprazole DR 40 mg tab(s) (PROTONIX) 40 mg ORAL BID AC (0600/1600)guaiFENesin 1,200 mg ER tab(s) (MUCINEX) 1,200 mg ORAL q 12 Hbudesonide 0.5 mg/2 mL 0.5 mg (PULMICORT) 0.5 mg INHALATION BIDmetHIMazole 5 mg tab(s) (TAPAZOLE) 5 mg ORAL DAILYondansetron (PF) 4 mg injection (ZOFRAN) 4 mg INTRAVENOUS q 6 H PRN0.9% NaCl 10 mL 10 mL INTRAVENOUS q 12 H0.9% NaCl 20 mL 20 mL INTRAVENOUS PRNcodeine-guaiFENesin 5-10 mL oral liquid (ROBITUSSIN AC) 5-10 mL ORAL q 6 HPRNdextrose 40 % 15 g (INSTA-GLUCOSE) 15 g ORAL PRNglucagon 1 mg injection (GLUCAGEN) 1 mg INTRAMUSCULAR PRNdextrose 50% in water 25 mL syringe 12.5 g INTRAVENOUS PRNHYDROcodone 5 mg - acetaminophen 325 mg tablet (NORCO) 1-2 tablet ORAL q 6H PRNmontelukast 10 mg tab(s) (SINGULAIR) 10 mg ORAL AT BEDTIMEmagnesium oxide 400 mg tab(s) (MAG-OX) 400 mg ORAL DAILYspironolactone 25 mg tab(s) (ALDACTONE) 25 mg ORAL BIDhydroCHLOROthiazide 25 mg tab(s) (HYDRODIURIL, ESIDRIX) 25 mg ORAL DAILYiv contrast (radiology procedure) INTRAVENOUS DIRECTED PRNLABS:CBC, Coags, BMP, Mg, PhosRecent Labs 12/26/1704WBC 14.19* 13.19*HB 12.1 12.3HCT 37.7 38.1PLT 206 193NA 131* 132K 3.4* 3.1*CHLOR 92* 91*CO2 25 27BUN 45* 43*CREAT 1.24 1.22GLUC 129* 125*CA 8.6 8.5MG 2.4 --Liver Function, Amylase, AND LipaseRecent Labs 12/26/1704TPROT 5.6* 5.5*ALB 3.3* 3.2*ALT 65* 62*AST 17 22ALKPHOS 81 75TBILI 0.8 0.7MISC LABS:Component Latest Ref Rng AND Units 12/20/2016Resp Virus Panel Source ? Nasopharyngeal SwabInfluenza A Virus Negative NegativeInfluenza A H1N1 2009 Negative NegativeInfluenza B Virus Negative NegativeRespiratory Syncytial Virus A Negative NegativeRespiratory Syncytial Virus B Negative NegativeParainfluenza Virus 1 Negative NegativeParainfluenza Virus 2 Negative NegativeParainfluenza Virus 3 Negative NegativeHuman Metapneumovirus Negative NegativeRhinovirus Negative NegativeAdenovirus B/E Negative NegativeAdenovirus C Negative NegativeSpecimen Source. ? Nasopharyngeal SwabInfluenza A PCR ? Negative for Influenza A by RT PCRInfluenza B PCR ? Negative for Influenza B by RT PCRRSV PCR ? Negative for RSV by RT PCR?RADIOLOGY?12/15/16 CT ChestIMPRESSION:1. ??Mild atelectasis within bilateral lungs. Otherwise, no acuteabnormality.2. Ovoid area of fat attenuation interposed between right and left atriaconsistent with lipomatous hypertrophy of interatrial septum.??12/23/16 KUBNegative. No retained stool is seen to suggest constipation.??MOST RECENT EGDRemote: hx gastritis at that time??MOST RECENT COLONOSCOPY: 01/09/2013. (Peter Lerma MD - [place]).Screening1. The perianal and digital rectal examinations were normal.2. The colon (entire examined portion) was moderately tortuous.3. The exam was otherwise without abnormality.4. Good bowel prepSIGNATURE: Vivian Martínez, CNSDATE: December 28, 2016TIME: 10:18 AM Normal [facility] CONSULT PROG HNO ID: [id number] thor: PARVIN Roldanervice: Infectious DiseaseAuthor Type: PhysicianType: Consult Progress NoteFiled: 12/28/2016 3:56 PMNote Text:INFECTIOUS DISEASE PROGRESS NOTEPatient Name: Laura Stark HISTORY:No new complaints. Feels better. No fevers. Leucocytosis fluctuating onsteroids. Still weak. No diarrhea. ROS checked in details. All qsanswered.Patient Active Hospital Problem List: Multinodular goiter (05/14/2011) Weakness (12/16/2016) Obesity, Class III, BMI >= 40 (morbid obesity) E66.01 (12/16/2016) Malnutrition of moderate degree (HCC) (12/16/2016) Asthma (12/23/2016) Hyperthyroidism (12/23/2016) Paroxysmal atrial fibrillation (HCC) (12/23/2016) CKD (chronic kidney disease) stage 3, GFR 30-59 ml/min (12/23/2016) Hypertension (12/23/2016) GERD (gastroesophageal reflux disease) (12/23/2016)ASSESSMENT:MRSA and E coli HCAP. [place] PsAG in sputumButtock woundAcute respiratory failureFailed OP PO abx treatment w doxyWeaknessObesity, Class III, BMI >= 40Malnutrition of moderate degreeRECOMMENDATIONS:Cont inue zosyn x 7-8 days totalPsAG w zosyn, appears S to cefepime, cipro and merremSupportive careWean O2Wean steroidsSupportive careMEDICATIONS: reviewed.Current hospital medications:morphine 1-2 mg injection 1-2 mg INTRAVENOUS q 4 H PRNmethylPREDNISolone sod succinate(PF) 40 mg injection (Solu-MEDROL) 40 mgINTRAVENOUS q 12 Hpsyllium Husk 1.56 g cap(s) 1.56 g ORAL DAILYlactobacillus rhamnosus 10 billion cell (CULTURELLE) capsule 1 capsuleORAL DAILYflecainide 100 mg tab(s) (TAMBOCOR) 100 mg ORAL q 12 Hdiltiazem CD 360 mg cap(s) (CARDIZEM CD, CARTIA XT) 360 mg ORAL DAILYpiperacillin-tazobact am 3.375 g in dextrose (iso-osmotic) 50 mL (ZOSYN)3.375 g INTRAVENOUS q 6 Hinsulin lispro 7 Units injection (rapid acting) (HumaLOG) 7 UnitsSUBCUTANEOUS w MEALSinsulin NPH human 14 Units injection (intermediate acting) (NovoLIN N,HumuLIN N) 14 Units SUBCUTANEOUS BIDapixaban 5 mg tab(s) (ELIQUIS) 5 mg ORAL BIDaspirin, enteric coated 81 mg tab(s) (ASPIRIN, ENTERIC COATED) 81 mg ORALDAILYhydrocortisone 25 mg suppository (HEMORRHOIDAL HC) 25 mg RECTAL q 12 Halbuterol 2.5 mg /3 mL (0.083 %) 2.5 mg (PROVENTIL) 2.5 mg INHALATION q 4H while awakealbuterol 2.5 mg /3 mL (0.083 %) 2.5 mg (PROVENTIL) 2.5 mg INHALATION q 2H PRNpantoprazole DR 40 mg tab(s) (PROTONIX) 40 mg ORAL BID AC (0600/1600)guaiFENesin 1,200 mg ER tab(s) (MUCINEX) 1,200 mg ORAL q 12 Hbudesonide 0.5 mg/2 mL 0.5 mg (PULMICORT) 0.5 mg INHALATION BIDmetHIMazole 5 mg tab(s) (TAPAZOLE) 5 mg ORAL DAILYondansetron (PF) 4 mg injection (ZOFRAN) 4 mg INTRAVENOUS q 6 H PRN0.9% NaCl 10 mL 10 mL INTRAVENOUS q 12 H0.9% NaCl 20 mL 20 mL INTRAVENOUS PRNcodeine-guaiFENesin 5-10 mL oral liquid (ROBITUSSIN AC) 5-10 mL ORAL q 6 HPRNdextrose 40 % 15 g (INSTA-GLUCOSE) 15 g ORAL PRNglucagon 1 mg injection (GLUCAGEN) 1 mg INTRAMUSCULAR PRNdextrose 50% in water 25 mL syringe 12.5 g INTRAVENOUS PRNHYDROcodone 5 mg - acetaminophen 325 mg tablet (NORCO) 1-2 tablet ORAL q 6H PRNmontelukast 10 mg tab(s) (SINGULAIR) 10 mg ORAL AT BEDTIMEmagnesium oxide 400 mg tab(s) (MAG-OX) 400 mg ORAL DAILYspironolactone 25 mg tab(s) (ALDACTONE) 25 mg ORAL BIDhydroCHLOROthiazide 25 mg tab(s) (HYDRODIURIL, ESIDRIX) 25 mg ORAL DAILYiv contrast (radiology procedure) INTRAVENOUS DIRECTED PRNPHYSICAL EXAM:Vital signs: BP 144/50 Pulse 78 Temp 37 ?C (98.6 ?F) (Oral) Resp 18 Ht 157.5 cm (5' 2) Wt 105.8 kg (233 lb 4 oz) SpO2 95% BMI 42.66kg/m2Temp (24hrs), Av.9 ?C (98.5 ?F), Min:36.4 ?C (97.5 ?F), Max:37.5 ?C(99.5 ?F)General: alert, oriented, NADLungs: bilaterally coarse vesicular BSHeart: regular rate and rhythmAbdomen: soft, non tender, non distended, BS+Extremities: no edemaNo rashesNo joint inflammationNeck suppleLines okNo CVATLabs:Recent Labs 12/26/1704WBC 14.19* 13.19*HB 12.1 12.3HCT 37.7 38.1PLT 206 193NA 131* 132K 3.4* 3.1*CHLOR 92* 91*CO2 25 27BUN 45* 43*CREAT 1.24 1.22Microbiology data: reviewedImaging data: Du Mcginnis [id number]/28/20169: 52 AM Normal [facility] Comp Metabolic Panelon 12-28 Alanine aminotransferase (ALT) 69 U/L High 0-45 [facility] Comment on above: Performed By: #### C BCDIF, PT, PTT, CMP, MG1 ####[facility] [address] [place] [address] Albumin 3.4 g/dL Low 3.5-5.0 [facility] Comment on above: Performed By: #### C BCDIF, PT, PTT, CMP, MG1 ####[facility] [address] [place] [address] Alkaline phosphatase (ALP) 85 U/L Normal 40-150 [facility] Comment on above: Performed By: #### C BCDIF, PT, PTT, CMP, MG1 ####[facility] [address] [place] [address] Anion gap 17 mmol/L High 0-15 [facility] Comment on above: Performed By: #### C BCDIF, PT, PTT, CMP, MG1 ####[facility] [address] [place] [address] Aspartate aminotransferase (AST) 22 U/L Normal 7-40 [facility] Comment on above: Performed By: #### C BCDIF, PT, PTT, CMP, MG1 ####[facility] [address] [place] [address] Bilirubin (total) 0.7 mg/dL Normal 0.0-1.5 [facility] Comment on above: Performed By: #### C BCDIF, PT, PTT, CMP, MG1 ####[facility] [address] [place] [address] Calcium 8.9 mg/dL Normal 8.5-10.5 [facility] Comment on above: Performed By: #### C BCDIF, PT, PTT, CMP, MG1 ####[facility] [address] [place] [address] Chloride 87 mmol/L Low 98-110 [facility] Comment on above: Performed By: #### C BCDIF, PT, PTT, CMP, MG1 ####[facility] [address] [place] [address] CO2 25 mmol/L Normal 23-32 [facility] Comment on above: Performed By: #### C BCDIF, PT, PTT, CMP, MG1 ####[facility] [address] [place] [address] Creatinine 1.15 mg/dL Normal 0.70-1.40 [facility] Comment on above: Performed By: #### C BCDIF, PT, PTT, CMP, MG1 ####[facility] [address] [place] [address] eGFR (non-black) 48 . Normal [facility] Comment on above: Result Comment: eGFR (Estimated GFR) Units of measure: mL/min/1.73 meters squaredeGFR is derived from the reexpressed MDRD Study equation using the following parameters: serum creatinine, age, gender and race. The creatinine assay has been calibrated to be traceable to IDMS.An eGFR <60 mL/min/1.73m2 for >3 months is consistent with chronic kidney disease. Refer to KDOQI guidelines for clinical interpretation.In patients with unstable renal function, e.g. those with acute kidney injury, the eGFR may not accurately reflect actual GFR. Performed By: #### C BCDIF, PT, PTT, CMP, MG1 ####[facility] [address] [place] [address] eGFR (non-black) 58 mL/min/{1.73_m2} Normal [facility] Comment on above: Performed By: #### C BCDIF, PT, PTT, CMP, MG1 ####[facility] [address] [place] [address] Glucose mass conc 223 mg/dL High 65-100 [facility] Comment on above: Performed By: #### C BCDIF, PT, PTT, CMP, MG1 ####[facility] [address] [place] [address] Potassium molar conc 3.3 mmol/L Low 3.5-5.0 [facility] Comment on above: Performed By: #### C BCDIF, PT, PTT, CMP, MG1 ####[facility] [address] [place] [address] Protein 5.9 g/dL Low 6.0-8.4 [facility] Comment on above: Performed By: #### C BCDIF, PT, PTT, CMP, MG1 ####[facility] [address] [place] [address] Sodium 129 mmol/L Low 132-148 [facility] Comment on above: Performed By: #### C BCDIF, PT, PTT, CMP, MG1 ####[facility] [address] [place] [address] Urea nitrogen 47 mg/dL High 8-25 [facility] Comment on above: Performed By: #### C BCDIF, PT, PTT, CMP, MG1 ####[facility] [address] [place] [address] NURSING PROGon 12-28-2016 NURSING PROG HNO ID: [id number] thor: Maritza (Rn) Delma, LEVIervice: (none)Author Type: Registered NurseType: Nursing Progress NoteFiled: 12/28/2016 6:49 PMNote Text: Nursing Progress NotePatient Name: Laura StarkMRN: [id number] Location: [facility]-0241/[id number]___ Daily Note:0815- Resting in bed. Transferred to chair for breakfast x 2 assist.Apical regular. Denies chest pain, palpitations, or dyspnea. Lungs withexpiratory wheezes. Resp easy on RA. Abd soft, obese. BSX4. Skin warm,dry, color pink. PPP. No edema. RUE PICCline flushed without difficulty, +blood return. Denies needs. Call light within reach.0915- Dr. Ole jennings.1000- Scheduled meds given per Sarah Beth GROVES orient.1010- Attempted to transfer to [facility] twice, pt unable to support weight.Returned to chair. Will retry when pt ready. Call light within reach.1110- Dr. Guillermo aware of 2 hour PC blood sugar of 343. No orders received.States to call him with lunch reading.1130- Assist Mira OT with standing pt, pt unable to transfer to [facility],bedpan placed while up in chair. Pericare provided for stool and urine.Returned to chair. Spouse at bedside.1215- Juli PT working with pt.1300- Zosyn IVPB hung via pump.1430- Tolerating chair. Prednisone PO given. Labs drawn from PICCline andsent to lab. Denies needs. Call light within reach.1600- Dozing in chair. No needs noted. Call light within reach.1810- Spoke with Dr. Sameer Lyons regarding potassium 3.3 today, orderreceived.1830- Zosyn IV hung via pump. Potassium 40 meq PO given. Remains up inchair. Tearful, emotional support given. No changes noted. Call lightwithin reach.This note was completed by: Maritza Nguyễn RN [facility] NURSING PROG HNO ID: [id number] thor: Sarah (Rn) LEVI Lynnervice: NursingAuthor Type: Registered NurseType: Nursing Progress NoteFiled: 12/28/2016 6:30 AMNote Text: Nursing Progress NotePatient Name: Laura StarkMRN: [id number] Location: [facility]/[id number]___ Daily Note:06 Dr Jovanna paged regarding AM labs.This note was completed by: Sarah Lynn RN [facility] PLAN OF CAREon 12-28-2016 PLAN OF CARE HNO ID: [id number] thor: Kamaljit Jimenez: EndocrinologyAuthor Type: PhysicianType: Plan of CareFiled: 12/28/2016 12:38 PMNote Text:Interval progress: currently on Solu-Medrol 40 mg IV q12hr, forhyperglycemia on NPH 14 units BID, and Humalog 7 units with each meals,some fluctuations.Current Facility-Administered Medications:morphine 1-2 mg injection 1-2 mg INTRAVENOUS q 4 H PRN Yatish Jovanna 2 mgat 12/27/16 0355methylPREDNISolone sod succinate(PF) 40 mg injection (Solu-MEDROL) 40 mgINTRAVENOUS q 12 H Yatish Jovanna 40 mg at 12/28/16 0931psyllium Husk 1.56 g cap(s) 1.56 g ORAL DAILY Yatish Jovanna 1.56 g at102/28/16 0933lactobacillus rhamnosus 10 billion cell (CULTURELLE) capsule 1 capsuleORAL DAILY Vivian (Forensic Investigator) Blackwell Reece 1 capsule at 12/28/16 0932flecainide 100 mg tab(s) (TAMBOCOR) 100 mg ORAL q 12 H Nixon Enciso Mrrapias046 mg at 12/28/16 0933diltiazem CD 360 mg cap(s) (CARDIZEM CD, CARTIA XT) 360 mg ORAL DAILYMatthesarah Enciso Micheal 360 mg at 12/28/16 0933piperacillin-tazobacta m 3.375 g in dextrose (iso-osmotic) 50 mL (ZOSYN)3.375 g INTRAVENOUS q 6 H Maged Mcginnis MD 3.375 g at 12/28/16 0554insulin lispro 7 Units injection (rapid acting) (HumaLOG) 7 UnitsSUBCUTANEOUS w MEALS Johnny Culver MD 7 Units at 12/28/16 0932insulin NPH human 14 Units injection (intermediate acting) (NovoLIN N,HumuLIN N) 14 Units SUBCUTANEOUS BID Johnny Culver MD 14 Units at102/28/16 0931apixaban 5 mg tab(s) (ELIQUIS) 5 mg ORAL BID Yatish Jovanna 5 mg at [id number], enteric coated 81 mg tab(s) (ASPIRIN, ENTERIC COATED) 81 mg ORALDAILY Yatish Jovanna 81 mg at 12/28/16 0933hydrocortisone 25 mg suppository (HEMORRHOIDAL HC) 25 mg RECTAL q 12 HAlicia (Forensic Investigator) Blackwell Reece 25 mg at 12/28/16 0932albuterol 2.5 mg /3 mL (0.083 %) 2.5 mg (PROVENTIL) 2.5 mg INHALATION q 4H while awake Jaya Darby Austin 2.5 mg at 12/28/16 1009albuterol 2.5 mg /3 mL (0.083 %) 2.5 mg (PROVENTIL) 2.5 mg INHALATION q 2H PRN Jaya Darby Austin 2.5 mg at 12/23/[address] 40 mg tab(s) (PROTONIX) 40 mg ORAL BID AC (0600/1600)Jaya Darby Austin 40 mg at 12/28/16 0554guaiFENesin 1,200 mg ER tab(s) (MUCINEX) 1,200 mg ORAL q 12 H Elvia (Pa)Movens 1,200 mg at 12/28/16 0932budesonide 0.5 mg/2 mL 0.5 mg (PULMICORT) 0.5 mg INHALATION BID HardeepSingh Austin 0.5 mg at 12/28/16 0552metHIMazole 5 mg tab(s) (TAPAZOLE) 5 mg ORAL DAILY Mia Hasan 5 mg at102/28/16 0932ondansetron (PF) 4 mg injection (ZOFRAN) 4 mg INTRAVENOUS q 6 H PRN YatishGoyal 4 mg at 12/24/16 68046.9% NaCl 10 mL 10 mL INTRAVENOUS q 12 H Yatish Jovanna 10 mL at 9570.9% NaCl 20 mL 20 mL INTRAVENOUS PRN Yatish Jovanna 20 mL at 12/24/16 0700codeine-guaiFENesin 5-10 mL oral liquid (ROBITUSSIN AC) 5-10 mL ORAL q 6 HPRN Yatish Goyaldextrose 40 % 15 g (INSTA-GLUCOSE) 15 g ORAL PRN Yatish GoyalOrglucagon 1 mg injection (GLUCAGEN) 1 mg INTRAMUSCULAR PRN Yatish GoyalOrdextrose 50% in water 25 mL syringe 12.5 g INTRAVENOUS PRN Yatish GoyalHYDROcodone 5 mg - acetaminophen 325 mg tablet (NORCO) 1-2 tablet ORAL q 6H PRN Yatish Jovanna 2 tablet at 12/28/16 0000montelukast 10 mg tab(s) (SINGULAIR) 10 mg ORAL AT BEDTIME Yatish Jovanna 10mg at 12/27/16 2156magnesium oxide 400 mg tab(s) (MAG-OX) 400 mg ORAL DAILY Yatish Jovanna 400mg at 12/28/16 0932spironolactone 25 mg tab(s) (ALDACTONE) 25 mg ORAL BID Yatish Jovanna 25 mgat 12/28/16 0932hydroCHLOROthiazide 25 mg tab(s) (HYDRODIURIL, ESIDRIX) 25 mg ORAL DAILYYatish Jovanna 25 mg at 12/28/16 0932iv contrast (radiology procedure) INTRAVENOUS DIRECTED PRN Kavon) RussoComponent Latest Ref Rng AND Units 12/26/2016 12/26/201612/26/2016 12/27/2016 12/27/2016 12/27/201612/28/2016 8:14 AM 11:36 AM 2:32 PM 5:01 PM 8:30 PM 6:06 AM 11:39 AM 5:29 PM8:45 PM 8:38 AM 11:03 AMGlucose, Point of Care 65 - 100 mg/dL 160 (A) 245 (A) 102 (A) 155 (A) 204(A) 149 (A) 167 (A) 137 (A) 187 (A) 201 (A) 343 (A)Impression: hyperglycemia, some fluctuations, was OK last few days,running slightly high side today. Reason not clear no fever.Plan: add a SSI#2 in addition to current regimen. If still running hightomorrow we will consider changing her regimen.Kamaljit Guillermo MDNov2016 [facility] PROGRESSon 12-28-2016 PROGRESS HNO ID: [id number] thor: Ronny K RamanavarapuService: Cardiovascular DiseaseAuthor Type: PhysicianType: Progress NotesFiled: 12/28/2016 5:07 PMNote Text:INPATIENT CONSULT PROGRESS NOTESPatient Name: Laura StarkMRN: [id number] of SERVICE: 12/28/2016TIME of SERVICE: 5:05 PMCONSULTING SERVICE: CardiologyINTERVAL HPI: Feeling much better and has no palpitations or dyspnea orchest pain. She remains in sinus. Na is low and her white count is stillhigh. She is anxious to go to rehab.DRUGS REVIEWED:ASSESSMENT AND PLAN:Status post A Flutter and now in sinus after CVRelatively stable cardiac statusExacerbation of asthma and tracheobronchitisHyponatre jero and hypokalemiaAtelectasisObes ity and probable obstructive sleep apneaHyperactive thyroid: currently on methimazoleContinue current therapy including Tambocor?PHYSICAL EXAM:Blood pressure 132/78, pulse 77, temperature 36.9 ?C (98.4 ?F),temperature source Oral, resp. rate 20, height 157.5 cm (5' 2), hcikkh925.8 kg (237 lb 10.5 oz), SpO2 96 %.??Body mass index is 43.47 kg/(m2).GENERAL: ?Alert, no distress, cooperativeNECK: No jugulovenous distention, No carotid bruits, Carotid pulse normalcontour, SuppleLUNGS: Lungs clear to auscultation, Good diaphragmatic excursionCARDIAC: irregular?S1 and S2; no rubs, murmurs, or gallopsABDOMEN:benign, soft, flat, non-tender, no masses, normal bowel soundsNEURO: Awake, alert and oriented x 3EXTREMITIES: Extremities normal, no deformities, 1+edema,??But no clubbingor skin discoloration. Good capillary refill., No ulcersPULSES: 2+ radialRecent Labs WBC 20.27*RBC 4.22HB 11.8HCT 36.2PLT 216MCV 85.8MCH 28.0MPV 10.3CMP:Recent Labs NA 129*K 3.3*CHLOR 87*CO2 25BUN 47*CREAT 1.15GLUC 223*TPROT 5.9*CA 8.9TBILI 0.7ALKPHOS 85ALT 69*AST 22ANION 17*Cardiac Enzymes: No results for input(s): CK, MB, CKMB, TROPT in the last24 hours.SIGNATURE: Ronny Valente, BECKY; [phone]: December 28, 2016TIME: 5:05 PM [facility] PROGRESS HNO ID: [id number] thor: Kiara Fleming: General Internal MedicineAuthor Type: PhysicianType: Progress NotesFiled: 12/28/2016 12:58 PMNote Text:INTERNAL MEDICINE PROGRESS NOTEADMITTING PHYSICIAN: Kiara Galloway COMPLAINT: Leg weakness and occ leg pain.Current Facility-Administered Medications:insulin lispro injection (rapid acting) (HumaLOG) SUBCUTANEOUS w MEALSpredniSONE 40 mg tab(s) (DELTASONE) 40 mg ORAL DAILYmorphine 1-2 mg injection 1-2 mg INTRAVENOUS q 4 H PRNpsyllium Husk 1.56 g cap(s) 1.56 g ORAL DAILYlactobacillus rhamnosus 10 billion cell (CULTURELLE) capsule 1 capsuleORAL DAILYflecainide 100 mg tab(s) (TAMBOCOR) 100 mg ORAL q 12 Hdiltiazem CD 360 mg cap(s) (CARDIZEM CD, CARTIA XT) 360 mg ORAL DAILYpiperacillin-tazobact am 3.375 g in dextrose (iso-osmotic) 50 mL (ZOSYN)3.375 g INTRAVENOUS q 6 Hinsulin lispro 7 Units injection (rapid acting) (HumaLOG) 7 UnitsSUBCUTANEOUS w MEALSinsulin NPH human 14 Units injection (intermediate acting) (NovoLIN N,HumuLIN N) 14 Units SUBCUTANEOUS BIDapixaban 5 mg tab(s) (ELIQUIS) 5 mg ORAL BIDaspirin, enteric coated 81 mg tab(s) (ASPIRIN, ENTERIC COATED) 81 mg ORALDAILYhydrocortisone 25 mg suppository (HEMORRHOIDAL HC) 25 mg RECTAL q 12 Halbuterol 2.5 mg /3 mL (0.083 %) 2.5 mg (PROVENTIL) 2.5 mg INHALATION q 4H while awakealbuterol 2.5 mg /3 mL (0.083 %) 2.5 mg (PROVENTIL) 2.5 mg INHALATION q 2H PRNpantoprazole DR 40 mg tab(s) (PROTONIX) 40 mg ORAL BID AC (0600/1600)guaiFENesin 1,200 mg ER tab(s) (MUCINEX) 1,200 mg ORAL q 12 Hbudesonide 0.5 mg/2 mL 0.5 mg (PULMICORT) 0.5 mg INHALATION BIDmetHIMazole 5 mg tab(s) (TAPAZOLE) 5 mg ORAL DAILYondansetron (PF) 4 mg injection (ZOFRAN) 4 mg INTRAVENOUS q 6 H PRN0.9% NaCl 10 mL 10 mL INTRAVENOUS q 12 H0.9% NaCl 20 mL 20 mL INTRAVENOUS PRNcodeine-guaiFENesin 5-10 mL oral liquid (ROBITUSSIN AC) 5-10 mL ORAL q 6 HPRNdextrose 40 % 15 g (INSTA-GLUCOSE) 15 g ORAL PRNOrglucagon 1 mg injection (GLUCAGEN) 1 mg INTRAMUSCULAR PRNOrdextrose 50% in water 25 mL syringe 12.5 g INTRAVENOUS PRNHYDROcodone 5 mg - acetaminophen 325 mg tablet (NORCO) 1-2 tablet ORAL q 6H PRNmontelukast 10 mg tab(s) (SINGULAIR) 10 mg ORAL AT BEDTIMEmagnesium oxide 400 mg tab(s) (MAG-OX) 400 mg ORAL DAILYspironolactone 25 mg tab(s) (ALDACTONE) 25 mg ORAL BIDhydroCHLOROthiazide 25 mg tab(s) (HYDRODIURIL, ESIDRIX) 25 mg ORAL DAILYiv contrast (radiology procedure) INTRAVENOUS DIRECTED PRNINTERVAL HISTORY OF PRESENT ILLNESS: No n/v/d.S/p CVN, remains in NSR,No orthopnea, pnd,cpain, fever, chills.Consult notes reviewed.OBJECTIVEPHYSICAL EXAM:Blood pressure (!) 128/46, pulse 79, temperature 36.8 ?C (98.2 ?F),temperature source Oral, resp. rate 18, height 157.5 cm (5' 2), zgxavc792.8 kg (233 lb 4 oz), SpO2 98 %.Body mass index is 42.66 kg/(m2).GENERAL: Morbidly Obese, Alert, no DistressNECK: SuppleLUNGS: decreased a/e, occ ronchi.CARDIAC: s1s2: regABDOMEN: Soft, nontenderEXTREMITIES: Extremities normal, no deformities, edema, clubbing or skindiscoloration. Good capillary refill.NEURO: Alert, oriented X 3, Gait normal. Non-focal. Reflexes normal andsymmetric. Sensation grossly intact.PULSES: 2+ radialDATA:Diagnostic tests reviewed for today's visit:Most recent labs and imaging results.ASSESSMENT/PLANAct aravind Problems: Acute Asthma exacerbation with HCAP? recent sputum cx with MRSA and E.coli: Stop iv steroids, start po prednisone and continue iv zosyn, Continuenebs. Noted Pulmonary eval. Continue codeine cough syrup, Weakness POA: Yes Assessment AND Plan: due to above. Obesity, Class III, BMI >= 40 (morbid obesity) E66.01 Assessment AND Plan: encourage wt. Loss. Hyperglycemia due to steroids: Continue basal and SSI.PAF:appreciate Endo eval for hyperthyroidism,Appreciate : Cardio eval, for CVN later today.Noted PT/OT eval.D/c planning.Disp; SNF.SIGNATURE: Kiara Nugent MD PATIENT NAME: Laura Stark PAGER/CONTACT #: [facility] THERAPY NTon 12-28-2016 THERAPY NT HNO ID: [id number] thor: Juli (Pt) LawrenceService: Physical TherapyAuthor Type: Physical TherapistType: Therapy (PT/OT/Speech/Resp)Filed: 12/28/2016 1:31 PMNote Text:Physical Therapy TreatmentSERVICE DATE: 12/28/2016SERVICE TIME: 1219 to 1246ROOM: [id number] Discharge Disposition: Subacute/SNFRecommended Discharge Disposition Comments: Patient currently much belowfunctional baseline with all functional mobility, requires cues/assistthroughout for safety and noted to fatigue quickly with all tasks; patientis + high fall risk, indicates need for continued PT post-acute stay inS setting to improve safety, strength and independence with all mobilityJustification For Post Acute Needs: Cognition intact;Good familysupport;Good premorbid functional status;Good sitting tolerance;Living thecommunity premorbidly;Motivated;Will ing to participate;May not toleratehigher intensity programing;Need for assistance may exceed supportavailableAnticipate d Discharge Needs: Physical Assist at Home;EquipmentPhysical Assist at Home for:Ambulation;Transfers;C leaning;Laundry;Meals;Stai rs;Safety;SelfCare;Shoppin g;TransportationRecommende d Discharge Equipment: No equipment needs anticipated (with SNFdischarge anticipated)PT Recommendations to Nursing: OOB for meals;Recommend passive lift tochair;Utilize bed in chair position;Other: See Comment (Liko lift vs. x 2assist up to chair/commode)Ambulation Device: Wheeled Walker (gait belt)PT 6 Clicks Score: 10Precautions/Activity Restrictions: Diabetic;FallRisk;Lines/Tu bes/Drains;Other: See Comments (universal)Precaution/Acti vity Restriction Comments: no BP R UE, PICC lineASSESSMENT :Patient with noted decline in functional mobility since last treatmentsession, requiring much increased assist (maximal assist x 2) for sitto/from stand trials and on 3 semi-successful trials, still limited withachievement of full stand posture, completing partial sit to stand only(buttocks clears surface) and significantly limited standing tolerance.Patient recently up to chair with OT x 3 assist and requesting to remainin chair post-treatment for lunch, therefore return to bed deferred (ptunsafe for progression of ambulation) and with consideration oflimitations, recommendation to RN post-treatment for use of Liko Lift toreturn to bed for optimal safety. Patient demonstrates strength 3+ to 4-/5B LEs with isolated MMT however significant functional weakness throughoutlimiting progression of mobility. Patient remains very motivated toparticipate and improve, requires encouragement due to frustration withgradual decline in mobility status. Continue to progress as ableTolerance Limited By Fatigue (weakness)Physical Therapy Problem List: Education Deficit;Pain;SafetyDeficit s;Decreased Activity Tolerance;Decreased Strength;FunctionalMobilit y Impairment;Balance Impaired;Sensory DeficitPatient /Caregiver Goals: Go To Rehab (if needed, open to home if safe aswell)Goals for Plan of Care:Able to perform HEP with: Supervision (B LEs x 15-20 reps with progress tostand to (+) strength)Transfer supine to/from sit with: Supervision (without use of bedcontrols/rails to emulate home)Transfer sit to/from stand with: Supervision (with LRAD to increase safetywith OOB activity)Ambulate with: SupervisionDistance: 100-150 feetDevice: (LRAD)Ambulate up and down curb step with: Stand By AssistanceDevice: (LRAD )Ambulate up and down steps with: Stand By AssistanceNumber of steps: 4Device: Rail (and LRAD to ensure safety entering home)Goal: Improve static and dynamic standing balance with LRAD to require nomore than supervision to increase safety with all standing activities andreduce fall riskGoal: -Patient to verbalize and demonstrate understanding of energyconservation techniquesProgress Toward Goals: Progressing slower than expectedRehab Potential: GoodPLAN:Treatment Frequency (times per week): 5 Current admissionTreatment Interventions: Education;Energy Conservation Training;JointMobility;Str engthening;Functional Mobility Training;BalanceTraining;N euromuscular Re-educationPlan of Care developed with: PatientTREATMENT INTERVENTIONS:Therapy Diagnosis: Reduced mobility-other;Muscle Weakness (generalized)Interventions Provided: Therapeutic Exercise (96793);Therapeutic Activity(24354)Therapeutic Exercise (55311) Treatment Minutes: 101 unitSkilled Intervention(s): Instruction in therapeutic exerciseVerbal and tactile cuing providedFacilitation of muscle control, optimal recruitment and alignmentCompletes 15-20 repetitions (unless otherwise noted) of the followingseated therapeutic exercises on B LE (unless otherwise indicated) withassistance as indicated sitting in chair: heel/toe raises bilaterally,LAQs (no assistance), hip flexion (no assist), lightly resisted isometrichip abduction bilaterally, lightly resisted isometric hip adductionbilaterally. Manually resisted isometrics x 3-5 second hold verbal, visualand tactile cues initially for technique and for patient to assistthroughout as able. Appropriately follows cues throughout. Rest breaksprovided secondary to fatigue. Patient with good recall of exercises andtechniquesEducation to patient on benefits/rationale for exercisesTherapeutic Activity (04344) Treatment Minutes: 151 unitSkilled Intervention(s): Instruction in sit to and from stand techniquewith proper hand placement and body positioning at edge of bed/chair-- x 4attempts initially that are unsuccessful despite maximal assist x 1,additional x 2 attempts that are unsuccessful despite maximal assist x 2and x 3 trials that are semi-successful with achievement of partial sit tostand with clearance of buttocks from chair surfaceB LEs blocked for safety, caution given to PICC line R UEHeavy verbal, visual and tactile cues for goal of task, adequate anteriorweight shift forward, effective use of B UEs (limited R UE secondary tolimited ROM/adhesive capsulitis),upright posture once in standing, properplacement of B LEsExtended rest breaks between trials/attempts secondary to fatigue --ptvery motivated for each subsequent trial/attemptTotal Timed Code Treatment Minutes: 25Total Treatment Time (minutes): 27FUNCTIONAL G CODE:PT 6 Clicks Score: 10 (12/28/16 1219)Mobility: Walking and Moving Around Current Status (G8978): CK ()Mobility: Walking and Moving Around Goal Status (G8979): CJ ()Based on clinical assessment and the score on the 6 Clicks FunctionalAssessment Tool, the G code and corresponding severity modifiers aredocumented above.SUBJECTIVE:Current Hospital Course: Chart reviewed; Patient is a 61 year oldfemale ?admitted with SOB and cough?as well as fever; diagnosed acuteexacerbation of asthma with failed outpatient therapy, recent hospitaladmission with discharge following for pseudomonas + for Ecoli and MRSA??Patient transferred from [facility] to telemetry unit 12/18 due to EKG results ofatrial fibrillation with RVR and possible inferior subendocardial injury,B atelectasis. 12/23/16: GI consulted due to rectal bleeding. 12/27/16:Underwent FERNANDO and cardioversion due to atrial fib-converted to sinusrhythm.??History of hyperthyroidism, Graves vs. Toxic nodule, asthma, DVT, PE,diabetes?Patient Report: Patient sitting up in bedside chair at [facility], states Iwas doing so good and Tuesday I woke up with a lot of joint pain andseems like I have declined since, ok per RN for PT. Patient verymotivated and willing to participate, per RN and patient, patient x 3assist up to chair from bed with OTHome EnvironmentPatient Lives With: Family (spouse and disabled child, pt primarycaregiver for dtr)Assistance Available: PRN (spouse works, to take FMLA to care for dtrinitially)Entry To Home: Stairs;With RailNumber Of Stairs Into Home: 4Number Of Stairs To Bed/Bath: 0Tub/Shower Type: tub showerLaundry: basement level, spouse completes, full flight with 1 rail toaccessEquipment Owned: Commode-Raised;Grab Bars-Shower;Hand Held Shower;StandardWalker;Show er Chair (raised toilet seat with arms)Prior Functional Level: Within Functional Limits;Required AssistanceAssistance Required With: Other: See CommentPrior Functional Level Comments: Patient with decline in mobility for thepast 10 weeks with gradual debility, reports recent difficulty with allmobility and 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; 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, fullyindep with amb, ADLs, IADLs, driving, primary caregiver for disableddaughterOBJECTIVE: CURRENT FUNCTIONAL STATUS:Current Functional Mobility Assist Level Additional InformationRollingSupine to Sit (not tested; up in chair at approach)Sit to Supine (not tested; requests to remain up in chair post- forlunch)Sit to Stand Maximal Assistance (x 2 for x3 partial sit to stand fromchair up to walker) See above-refer to interventionStand to Sit Maximal Assistance (x 2 for sit from partial stand x 3 trialstotal) See aboveBed to Chair (unsafe for progression,recommended Liko lift chair>bed toRN)Toilet/CommodeGaitSta irs (unsafe for progression at this time)Curb StepCar TransferGeneral Gait Deviations: Trina decreased;Step length decreased;Flexedtrunk posture;Other: See comment (fatigues quickly, frequent standing restbreaks d/t fatigue)-Patient sitting up in bedside chair with lunch tray yer-nyseyk-dospierks, call melgar and personal belongings in reach, RN notified ofpatient status, denies needs at this time.-Gait belt in place for safety with all functional mobility-Lines/Tubes/Drain s: Intact and as follows: PICC R UE, heplock, telemetryBalance: Static Sitting;Dynamic Sitting;Static StandingStatic Sitting Balance: Supervision (sitting up in chair)Dynamic Sitting Balance: Supervision (sitting in chair for seatedexercises)Static Standing Balance: Maximal Assistance (x 2 for brief standing )Activity Tolerance: Standing ActivityStanding Activity: staticallyStanding Activity Tolerance (in minutes): (5 seconds)Please see discipline specific clinical documentation flowsheet forcomplete details for this therapy evaluation/treatment.JESSICA PHILLIP: Juli Bravo PT PATIENT NAME: Laura StarkDATE: December 28, 2016 : 1:19 PM PAGER/CONTACT #: [phone] [facility] THERAPY NT HNO ID: [id number] thor: Mira (Ot/L) CecilService: Occupational TherapyAuthor Type: Occupational TherapistType: Therapy (PT/OT/Speech/Resp)Filed: 12/28/2016 12:27 PMNote Text:Occupational Therapy TreatmentSERVICE DATE: 12/28/2016SERVICE TIME: 1103 to 1138ROOM: [id number] Discharge Disposition: Acute RehabRecommended Discharge Disposition Comments: Pt appears to be functioningwell below baseline and requires continued skilled OT services post acutestay to increase ease and independence during ADLs, IADLs and functionalmobility, as pt was highly independent prior to recent illness andsubsequent hospitalizationJustificati on For Post Acute Needs: Cognition intact;Good familysupport;Good premorbid functional status;Good sitting tolerance;Living thecommunity premorbidly;Willing to participate;Motivated;Need for assistancemay exceed support availableAnticipated Discharge Needs: Physical Assist at Home;EquipmentPhysical Assist at Home for:Ambulation;Transfers;C leaning;Laundry;Meals;Stai rs;Safety;SelfCare;Shoppin g;TransportationRecommende d Discharge Equipment: Supervisor Process Testing;Long Handled Sponge (tub transferbench)OT Recommendations to Nursing: Assistance of 3 for sit > stand fromchair;Encourage patient participation in ADL?s;OOB for meals;Equipment isac used in room (encourage energy conserv)Equipment To Be Used In Room: Wheeled Walker (gait belt)OT 6 Clicks Score: 16Precautions/Activity Restrictions: Diabetic;FallRisk;Lines/Tu bes/Drains;Other: See Comments (universal)Precaution/Acti vity Restriction Comments: no BP R UE, PICC lineASSESSMENT:Tolerance Limited By FatiguePt requires significantly more assistance (Maximal Assistance of 2-3) forfunctional transfers, toileting (Total Assistance) and lower body dressing(anticipate Maximal Assistance for pants/underwear) this session. Pt wasindependent at home and primary caregiver of dtr prior to admission/recentillness and is currently functioning well below baseline. Pt is motivatedto return to PLOF/home to family, however, is not currently safe to returnhome at current functional level. Pt requires intensive therapy servicespost-acute stay to increase safety, ease and independence during ADLs,IADLs and functional mobility. OT POC goals updated to reflect pt'scurrent functional status.Occupational Therapy Problem List: Impaired Self Care;Decreased ActivityTolerance;Decrease d Strength;Functional Mobility Impairment;BalanceImpaired ;EdemaPatient /Caregiver Goals: Go to Rehab ([facility]); Care For Self(with eventual return to care for dtr, IADLs)Goals for Plan of Care:Able to perform HEP with: Independent (for functional BUE strengthening)Lower Body Dressing with: Minimal AssistanceToilet Hygiene with: Minimal AssistanceChair Transfer with: Minimal AssistanceToilet Transfer with: Minimal AssistanceTolerate (minutes of functional activity): 1 (during standingADLs/functional mobility)Functional Activity with: Minimal Assistance (for increased ease/safetywith functional tasks)Progress Toward Goals: Progressing slower than expectedDue To: fatigue, weaknessRehab Potential: GoodPLAN:Treatment Frequency (times per week): 4 Current admissionTreatment Interventions: Education;Self Care / Home Management;FunctionalMobil ity Training;Strengthening;Aliyah rgy Conservation TrainingPlan of Care developed with: PatientTREATMENT INTERVENTIONS:Therapy Diagnosis: Decreased activities of daily living (ADL)Interventions Provided: Therapeutic Activity (85098);Self Care HomeManagement (87430)Therapeutic Activity (84239) Treatment Minutes: 161 unitSkilled Intervention(s): Instructed pt in effective use of BUEs to scootto edge of chair for increased ease with sit > stand from recliner chairsurface. Instructed pt in hand placement (initially on armrests, then Rhand on walker and bilateral hands on walker with walker stabilized) forincreased ease with sit to stand transfer. Pt facilitated with gainingmomentum with anterior weight shifting and cued in proper foot placementon floor in preparation for sit to stand transfer. Pt instructed andverbally cued in transition of L hand to walker handle during first twoattempts to stand. Pt instructed and verbally cued in effective use ofBUEs, anterior weight shifting and weight bearing on BLEs during staticstand at walker level. Instructed, cued and facilitated in stand to sittechnique with lower extremities touching chair/bed and reaching back forsurface.Self Skilled Nursing Management (04514) Treatment Minutes: 81 unitSkilled Intervention(s): Pt educated in role of OT. Pt educated inimportance of out of bed activity (active participation in daily care, sit<> stand attempts/practice) for rehabilitation and to prevent functionaldecline. Pt educated in benefits of [facility] non-skid socks [facility]ad[facility] socks for increased traction for standing for optimal safety.Provided instruction, cuing and facilitation to don/doff socks with use ofreacher and sock aide while seated in bedside chair. Pt educated inimportance/benefits of positive thinking and facilitated in identifyingpositive achievements from today. Pt instructed and cued in pursed lipbreathing during static standing trials. Education in OT POC.Total Timed Code Treatment Minutes: 24Total Treatment Time (minutes): 35FUNCTIONAL G CODE:OT 6 Clicks Score: 16 (12/28/16 1103)Self Care Current Status (G8987): CJ (12/22/16 1434)Self Care Goal Status (G8988): (12/22/16 1434)Based on clinical assessment and the score on the 6 Clicks FunctionalAssessment Tool, the G code and corresponding severity modifiers aredocumented above.SUBJECTIVE:Current Hospital Course: Chart reviewed; Patient is a 61 year old femaleadmitted with SOB and cough?as well as fever; diagnosed acute exacerbationof asthma with failed outpatient therapy, recent hospital admission withdischarge following for pseudomonas + for Ecoli and MRSA?Patient transferred from [facility] to telemetry unit 12/18 due to EKG results ofatrial fibrillation with RVR and possible inferior subendocardial injury,B atelectasis. 12/23/16: GI consulted due to rectal bleeding. 12/27/16:Underwent FERNANDO and cardioversion due to atrial fib-converted to sinusrhythm.?History of hyperthyroidism, Graves vs. Toxic nodule, asthma, DVT, PEPatient Report: Patient sitting up in bedside chair upon OT arrival.Every day I've been getting weaker and weaker. Patient's spouse presentthroughout session with patient's permission.Home EnvironmentPatient Lives With: Family (spouse and disabled child, pt primarycaregiver for dtr)Assistance Available: PRN (spouse works, to take FMLA to care for dtrinitially)Entry To Home: Stairs;With RailNumber Of Stairs Into Home: 4Number Of Stairs To Bed/Bath: 0Tub/Shower Type: tub showerLaundry: basement level, spouse completes, full flight with 1 rail toaccessEquipment Owned: Commode-Raised;Grab Bars-Shower;Hand Held Shower;StandardWalker;Show er Chair (raised toilet seat with arms)Prior Functional Level: Within Functional Limits;Required AssistanceAssistance Required With: Other: See CommentPrior Functional Level Comments: Patient with decline in mobility for thepast 10 weeks with gradual debility, reports recent difficulty with allmobility and 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; 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, fullyindep with amb, ADLs, IADLs, driving, primary caregiver for disableddaughterOBJECTIVE: Responsiveness: Alert;AwakeFollows Commands: 3-step Commands;Cueing NeededCueing to Follow Commands: MinimumVision Deficits: Wears glassesCURRENT FUNCTIONAL STATUS:Current Activities of Daily Living Assist LevelFeeding Independent (per clinical judgment)Grooming Stand By Assistance (per clinical judgment at sink)Bathing Upper Body Set Up (per clinical judgment seated)Bathing Lower Body Moderate Assistance (per clinical judgment )Dressing Upper Body Modified Independent (per clinical judgment seated)Dressing Lower Body Minimal Assistance (to don/doff socks with adaptiveequipment)Toiletin g Total Assistance (standing toilet hygiene)Functional Mobility Assist LevelRollingSupine to SitSit to SupineScootingSit to Stand Maximal Assistance (of 2 for 2 trials)-unable to fully cometo standing position as pt with difficulty transitioning L hand to walkerhandle, of 3 for 1 trial; chair to walker level)Stand to Sit Moderate Assistance (of 2; walker level to bedside chair)Bed to ChairToilet/CommodeFunctio nal Mobility-Gait belt used during functional mobility and transfers for optimalsafetyBalance: Dynamic Standing;Static StandingStatic Standing Balance: Maximal AssistanceDynamic Standing Balance: Maximal AssistanceActivity Tolerance: Standing ActivityStanding Activity: standing at walker level in prep for attempt forchair-bsc transfer, standing toilet hygieneStanding Activity Tolerance (in minutes): (5-7seconds (1st two trials);15-20 seconds (3rd trial))Please see discipline specific clinical documentation flowsheet forcomplete details for this therapy evaluation/treatment.Pt and nursing agreeable to OT services. At end of session, pt sitting inchair with armrests. Tray table and call light within reach. Pt's spousein room at end of session. Nursing (RN, PCNA, CM) notified of current ptstatus.SIGNATURE: Mira Willis OT/L PATIENT NAME: Laura StarkDATE: December 28, 2016 : 12:03 PM PAGER: [phone] [facility] ANES Pramod 12-27-2016 ANES POST HNO ID: [id number] thor: Andrew GautamService: AnesthesiologyAuthor Type: AnesthesiologistType: Anesthesia PostOpFiled: 12/27/2016 4:04 PMNote Text:POST ANESTHESIA EVALUATION NOTESERVICE DATE: 12/27/2016SERVICE TIME: 1330DOB: 1955Vitals: 12/28/1711Temp: 37.1 ?C (98.7 ?F) 37.2 ?C (99 ?F) 37.5 ?C (99.5 ?F) 37 ?C (98.6 ?F) 12/27/1712P: 118/56 115/55 111/55 130/66 12/27/1712Pulse: 80 80 81 83 12/27/1712Resp: 16 18 20 20 12/27/1712SpO2: 97% 97% 98% 96%Validated Vital Signs: YesPOST ANES STATUS: No apparent anesthetic complications. The patient isappropriately hydrated with stable respiratory and cardiovascular status.Patient has safe and adequate airway control. The patient has appropriatepain relief and no significant post operative nausea or vomiting. Thepatient has achieved baseline mental status.Further assessment by Anesthesia Service: NoneOther Remarks:SIGNATURE: Andrew Gautam MD PATIENT NAME: Laura StarkDATE: December 27, 2016 : 4:04 PM PAGER/CONTACT #: [phone] [facility] ANES PREOPon 12-27-2016 ANES PREOP HNO ID: [id number] thor: Andrew GautamService: AnesthesiologyAuthor Type: AnesthesiologistType: Anesthesia PreOpFiled: 12/27/2016 12:01 PMNote Text: ANESTHESIOLOGY DAY OF SURGERY NOTESERVICE DATE: 12/27/2016SERVICE TIME: 12:01 PMDOB: 4Procedure(s) (LRB):ECHOCARDIOGRAM TRANSESOPHOGEAL (N/A)CARDIOVERSION EXTERNAL ELECTIVE (N/A)Surgeon(s):Ronny De La TorreuEstimated body mass index is 42.26 kg/(m2) as calculated from thefollowing: Height as of this encounter: 157.5 cm (5' 2). Weight as of this encounter: 104.8 kg (231 lb 0.7 oz).Most recent hematocrit and potassium results:Hematocrit 37.7 12/27/2016Potassium 3.4 12/27/2016ANES DOS/PREOP NOTE: Vitals: 4 2 12/27/1710BP: 116/61 140/70Pulse: 81 70 72 97Resp: 19 20 20 20Temp: 37.1 ?C (98.8 ?F) 37.1 ?C (98.7 ?F)TempSrc: Oral OralSpO2: 98% 96% 96%Weight:Height:ACTIVE PROBLEM LISTMultinodular GoiterWeaknessObesity, Class III, BMI >= 40 (morbid obesity) E66.01Malnutrition of Moderate Degree (Hcc)AsthmaHyperthyroidism Paroxysmal Atrial Fibrillation (Hcc)Ckd (Chronic Kidney Disease) Stage 3, Gfr 30-59 Ml/MinHypertensionGerd (Gastroesophageal Reflux Disease)PAST MEDICAL HISTORYDiagnosis Date- Abnormal mammogram, unspecified 12/06/2007- 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- DVT (deep venous thrombosis) (HCC) 1995 Rt lower leg- Embolism and thrombosis of unspecified site 10/28/2005- PE (pulmonary embolism)- Recurrent ventral incisional hernia 08/03/2012- Unspecified asthma(493.90)- Unspecified essential hypertensionPAST SURGICAL HISTORYProcedure Laterality Date- APPENDECTOMY- DELIVERY ONLY , low cervical- COLONOSCOP W/ OR W/O [facility] SPEC 01-09-13- DEBRIDE SKIN AND SUBQ TISSU 02-10-12- FILTER PLACEMENT (VENA CAVA) 01-15-13- FNA WITH IMAGING 05/26/11 U/S FNA left thyroid nodule- FREEING BOWEL ADHESION,ENTEROLYSIS 03-24-12- INSER NON-TUNNEL CVC >= 5 YR 03-24-12- LAP INC CY RECUR COMP 01-18-13- PAST SURGICAL HISTORY OF 2003 right ankle surgery-fusion- PAST SURGICAL HISTORY OF 2009 right shoulder partial replacement- REPAIR INCIS HERNIA W MESH 01-31-12- REPAIR INCISIONAL HERNIA,LALO 01-31-12- TOTAL ABDOM HYSTERECTOMY 1996 Hysterectomy, RONN- TRANSCATH RETRIEVAL,PERCUT 02-21-13 FILTER REMOVALFAMILY HISTORYProblem Relation Age of Onset- Cancer Father skin- Hypertension Father- Cancer Maternal Grandmother colon- Cancer Paternal Grandfather leukemia- Diabetes Mother- Hypertension Mother- Ischemic Heart Disease Mother- Hypertension Maternal Grandfather- Ischemic Heart Disease Maternal Grandfather- Diabetes Maternal GrandfatherSocial History:Social HistorySubstance Use Topics- Smoking status: Former Smoker Packs/day: 1.00 Years: 20.00 Types: Cigarettes Quit date: 10/29/1995- Smokeless tobacco: Not on file- Alcohol use NoNo current facility-administered medications on file prior to encounter.No current outpatient prescriptions on file prior to encounter.Current Facility-Administered Medications:[MAR Hold due to Transfer] morphine 1-2 mg injection 1-2 mg INTRAVENOUS q4 H PRN Yatish Jovanna 2 mg at 12/27/16 0355[MAR Hold due to Transfer] methylPREDNISolone sod succinate(PF) 40 mginjection (Solu-MEDROL) 40 mg INTRAVENOUS q 12 H Yatish Jovanna 40 mg at102/27/16907[MAR Hold due to Transfer] psyllium Husk 1.56 g cap(s) 1.56 g ORAL DAILYYatish Jovanna 1.56 g at 12/26/16854[MAR Hold due to Transfer] lactobacillus rhamnosus 10 billion cell(CULTURELLE) capsule 1 capsule ORAL DAILY Vivian (Forensic Investigator) Rishi Newell 1 capsuleat 12/26/16854[MAR Hold due to Transfer] flecainide 100 mg tab(s) (TAMBOCOR) 100 mg ORALq 12 H Nixon Fernie Micheal 100 mg at 12/27/16916[MAR Hold due to Transfer] diltiazem CD 360 mg cap(s) (CARDIZEM CD, CARTIAXT) 360 mg ORAL DAILY Nixon Enciso Micheal 360 mg at 12/27/16916[MAR Hold due to Transfer] piperacillin-tazobactam 3.375 g in dextrose(iso-osmotic) 50 mL (ZOSYN) 3.375 g INTRAVENOUS q 6 H Maged Mcginnis MD3.375 g at 12/27/16 0539[MAR Hold due to Transfer] insulin lispro 7 Units injection (rapid acting)(HumaLOG) 7 Units SUBCUTANEOUS w INEZ Culver MD 7 Units at102/26/161809[MAR Hold due to Transfer] insulin NPH human 14 Units injection(intermediate acting) (NovoLIN N, HumuLIN N) 14 Units SUBCUTANEOUS BIDJohnny Culver MD 14 Units at 12/26/162031[MAR Hold due to Transfer] apixaban 5 mg tab(s) (ELIQUIS) 5 mg ORAL BIDYatish Jovanna 5 mg at 12/27/1616[MAR Hold due to Transfer] aspirin, enteric coated 81 mg tab(s) (ASPIRIN,ENTERIC COATED) 81 mg ORAL DAILY Yatish Jovanna 81 mg at 12/27/16916[MAR Hold due to Transfer] hydrocortisone 25 mg suppository (HEMORRHOIDALHC) 25 mg RECTAL q 12 H Vivian (Forensic Investigator) Rishi Newell 25 mg at 12/26/162023[MAR Hold due to Transfer] albuterol 2.5 mg /3 mL (0.083 %) 2.5 mg(PROVENTIL) 2.5 mg INHALATION q 4 H while awake Jaya Darby Austin 2.5 mgat 12/27/16 1022[MAR Hold due to Transfer] albuterol 2.5 mg /3 mL (0.083 %) 2.5 mg(PROVENTIL) 2.5 mg INHALATION q 2 H PRN Jaya Darby Austin 2.5 mg at102/23/16 0046[MAR Hold due to Transfer] pantoprazole DR 40 mg tab(s) (PROTONIX) 40 mgORAL BID AC (0600/1600) Jaya Darby Austin 40 mg at 12/26/16 1600[MAR Hold due to Transfer] guaiFENesin 1,200 mg ER tab(s) (MUCINEX) 1,200mg ORAL q 12 H Elvia (Pa) Movens 1,200 mg at 12/26/162023[MAR Hold due to Transfer] budesonide 0.5 mg/2 mL 0.5 mg (PULMICORT) 0.5mg INHALATION BID Jaya Darby Austin 0.5 mg at 12/27/16 0600[MAR Hold due to Transfer] metHIMazole 5 mg tab(s) (TAPAZOLE) 5 mg ORALDAILY Mia Hasan 5 mg at 12/27/16 0917[MAR Hold due to Transfer] ondansetron (PF) 4 mg injection (ZOFRAN) 4 mgINTRAVENOUS q 6 H PRN Yatish Jovanna 4 mg at 12/24/16 2341[MAR Hold due to Transfer] 0.9% NaCl 10 mL 10 mL INTRAVENOUS q 12 H YatishGoyal 10 mL at 12/27/16 0907[MAR Hold due to Transfer] 0.9% NaCl 20 mL 20 mL INTRAVENOUS PRN YatishGoyal 20 mL at 12/24/16 0700[MAR Hold due to Transfer] codeine-guaiFENesin 5-10 mL oral liquid(ROBITUSSIN AC) 5-10 mL ORAL q 6 H PRN Yatish Jovanna[MAR Hold due to Transfer] dextrose 40 % 15 g (INSTA-GLUCOSE) 15 g ORALPRN Yatish GoyalOr[MAR Hold due to Transfer] glucagon 1 mg injection (GLUCAGEN) 1 mgINTRAMUSCULAR PRN Yatish GoyalOr[MAR Hold due to Transfer] dextrose 50% in water 25 mL syringe 12.5 gINTRAVENOUS PRN Yatish Jovanna[APR Hold due to Transfer] HYDROcodone 5 mg - acetaminophen 325 mg tablet(NORCO) 1-2 tablet ORAL q 6 H PRN Yatish Jovanna 2 tablet at 12/18/16 0436[MAR Hold due to Transfer] montelukast 10 mg tab(s) (SINGULAIR) 10 mg ORALAT BEDTIME Yatish Jovanna 10 mg at 12/26/162023[MAR Hold due to Transfer] magnesium oxide 400 mg tab(s) (MAG-OX) 400 mgORAL DAILY Yatish Jovanna 400 mg at 12/27/16 09[APR Hold due to Transfer] spironolactone 25 mg tab(s) (ALDACTONE) 25 mgORAL BID tish Jovanna 25 mg at 12/27/16916[MAR Hold due to Transfer] hydroCHLOROthiazide 25 mg tab(s) (HYDRODIURIL,ESIDRIX) 25 mg ORAL DAILY h Jovanna 25 mg at 12/27/16915[APR Hold due to Transfer] iv contrast (radiology procedure) INTRAVENOUSAS DIRECTED PRN Marisol (Neda) RussoAllergies:ALLERGIESAl lergen Reactions- Clindamycin Hives- Macrodantin [Nitrof* Other: See Comments Off-balance- Percocet [Oxycodone* Other: See Comments Nausea- Sulfa (Sulfonamide * Rash, Itching localized rash and itching all over- Zithromax [Azithrom* Rash, Itching localized rash and itching all over- Zenicef [Other] Rash, Itching itching in mouth; localized rash and itching all overDOS EXAM: Adequate NPO status: YesAnesthetic risks, benefits, alternatives, personnel and consent discussed:YesPatient agrees to proceed: YesPrevious Anesthesia: No history of adverse event.Airway Assessment: MP 2; Neck ROM: Full ROM without neurologic symptoms;Airway Evaluation: No significant abnormalitiesSymptoms of Sleep Apnea: NoneDentition: Teeth intactAdditional Physical Exam:Lungs: Patient health status unchanged since recent history and physical.See history and physical for exam findings.Cardiac: Patient health status unchanged since recent history andphysical. See history and physical for exam findings.Additional Pertinent Findings: N/ABlood Products: Not anticipated for this procedure.Anesthetic Plan: MACPain Management Plan: Parenteral or OralASA Class: 3Other Medical Problems:obesityosaChronic Beta Matilde medication administered within 24 hours: N/AI have interviewed and examined the patient. I have reviewed the medicalrecord and/or the pre-anesthesia evaluation, pertinent labs, and testresults.Significant changes in the patient's condition since the History andPhysical, not otherwise documented in primary service progress notes: NoThis contains updated information obtained within 48 hours ofSurgery/Procedure.SIGNAT URE: Andrew Gautam MD PATIENT NAME: Laura StarkDATE: December 27, 2016 : 12:01 PM CSN: [id number] Normal [facility] CBCon 12-27-2016 Erythrocyte distribution width Auto Ratio (RBC) 16.8 % High 11.5-15.0 [facility] Comment on above: Performed By: #### C BCDIF, PT, PTT, CMP, MG1 ####[place] [address] Erythrocytes (RBC) 4.41 10*6/uL Normal 3.90-5.20 [facility] Comment on above: Performed By: #### C BCDIF, PT, PTT, CMP, MG1 ####[place] [address] Hematocrit (HCT) 37.7 % Normal 36.0-46.0 [facility] Comment on above: Performed By: #### C BCDIF, PT, PTT, CMP, MG1 ####[place] [address] Hemoglobin mass conc (Bld) 12.1 g/dL Normal 11.5-15.5 [facility] Comment on above: Performed By: #### C BCDIF, PT, PTT, CMP, MG1 ####[place] [address] MCH 27.4 pG Normal 26.0-34.0 [facility] Comment on above: Performed By: #### C BCDIF, PT, PTT, CMP, MG1 ####[facility] [id number] [phone] MCHC mass conc (RBC) 32.1 g/dL Normal 30.5-36.0 [facility] Comment on above: Performed By: #### C BCDIF, PT, PTT, CMP, MG1 ####[facility] [id number] [place] [address] MCV 85.5 fL Normal 80.0-100.0 [facility] Comment on above: Performed By: #### C BCDIF, PT, PTT, CMP, MG1 ####[facility] [id number] [place] [address] Platelet mean volume (PMV) 10.6 fL Normal 9.0-12.7 [facility] Comment on above: Performed By: #### C BCDIF, PT, PTT, CMP, MG1 ####[facility] [id number] [place] [address] Platelets 206 10*3/uL Normal 150-400 [facility] Comment on above: Performed By: #### C BCDIF, PT, PTT, CMP, MG1 ####[facility] [id number] [place] [address] WBC (Leukocytes) 14.19 10*3/uL High 3.70-11.00 [facility] Comment on above: Performed By: #### C BCDIF, PT, PTT, CMP, MG1 ####[facility] [address] [place] [address] CONSULT PROGon 12-27-2016 CONSULT PROG HNO ID: [id number] thor: Toma GoldbergbService: GastroenterologyAuthor Type: PhysicianType: Consult Progress NoteFiled: 12/29/2016 3:40 PMNote Text:GASTROENTEROLOGY CONSULT PROGRESS NOTEPatient Name: Laura StarkMRN: [id number] DATE: December 27, 2016SERVICE TIME: 11:40 AMASSESSMENT1. Fecal leakage with constipation- improved per patient2. Rectal bleeding - suspect hemorrhoidal in the context of constipation-resolved3. GERD4. Asthma exacerbation / PNA (MRSA and E.coli)5. New pAFIB (Eliquis/aspirin)?/ Hyperthyroidism??PLAN- Cardioversion this am as per cardiology- Continue Hemorrhoidal HC 25 mg DC twice daily- Continue psyllium 2 capsules daily- Stool log- Continue Culturelle daily- Continue Protonix 40 mg po twice daily- Regular diet. Currently NPO for cardioversion- Mgmt of #4 per IM/pulmonology/ID. Mgmt of #5 percardiology/endocrinolog y?- If rectal bleeding recurs then may need to consider colonoscopy butwould defer until pulmonary status improves?Patient seen and examined. Discussed with mid level provider. Starkey findingsconfirmed. Plan as outlined.Toma Funk MDNovember :00 PM INTE RVAL HPI: Continues to report fecal leakage but states she feels as ifit has improved somewhat. States she refused suppository this am statingit seems to make leaking worse and didn't want a mess as she is havingcardioversion this am. Documented medium brown unformed stool at midnight. No further rectal bleeding. Reports no appetite. Has been NPO sincemidnight for cardioversion. Reports SOB as she has been for weeks.PHYSICAL EXAM:Patient Vitals for the past 24 hrs: BP Temp Temp src Pulse Resp SpO2 Kpjvir59/13/17 1035 - - - 72 20 - -12/27/16 1022 - - - 70 20 96 % -12/27/16 0834 116/61 37.1 ?C (98.8 ?F) Oral 81 19 98 % -12/27/16 0618 - - - 76 18 - -12/27/16 0602 - - - 73 18 97 % -12/27/16 0433 152/75 37.2 ?C (99 ?F) Oral 72 19 97 % -12/27/16 0400 - - - - - - 104.8 kg (231 lb 0.7 oz)GENERAL: Alert AND oriented x 3. Cooperative. NADEYES: No scleral icterusSKIN: [place] in color. No jaundiceLUNGS: Expiratory wheezing bilateral lung manzano?CARDIAC: Irregularly irregular. A-fib on monitorABDOMEN: BS x 4. Abdomen obese but soft, LUQ tenderness which sheattributes to ecchymosis, non distended, no palpable masses ororganomegaly. No guarding or rebound tenderness elicitedEXTREMITIES: No upper or lower extremity edemaLABS:CBC, Coags, BMP, Mg, PhosRecent Labs 12/26/1704WBC 14.19* 13.19* 13.16*HB 12.1 12.3 12.4HCT 37.7 38.1 38.4PLT 206 193 212NA 131* 132 132K 3.4* 3.1* 3.5CHLOR 92* 91* 90*CO2 25 27 26BUN 45* 43* 51*CREAT 1.24 1.22 1.41*GLUC 129* 125* 158*CA 8.6 8.5 9.0Liver Function, Amylase, AND LipaseRecent Labs 12/26/1704TPROT 5.6* 5.5* 5.9*ALB 3.3* 3.2* 3.3*ALT 65* 62* 56*AST 17 22 28ALKPHOS 81 75 74TBILI 0.8 0.7 0.8MEDICATIONS:Current hospital medications:morphine 1-2 mg injection 1-2 mg INTRAVENOUS q 4 H PRNmethylPREDNISolone sod succinate(PF) 40 mg injection (Solu-MEDROL) 40 mgINTRAVENOUS q 12 Hpsyllium Husk 1.56 g cap(s) 1.56 g ORAL DAILYlactobacillus rhamnosus 10 billion cell (CULTURELLE) capsule 1 capsuleORAL DAILYflecainide 100 mg tab(s) (TAMBOCOR) 100 mg ORAL q 12 Hdiltiazem CD 360 mg cap(s) (CARDIZEM CD, CARTIA XT) 360 mg ORAL DAILYpiperacillin-tazobact am 3.375 g in dextrose (iso-osmotic) 50 mL (ZOSYN)3.375 g INTRAVENOUS q 6 Hinsulin lispro 7 Units injection (rapid acting) (HumaLOG) 7 UnitsSUBCUTANEOUS w MEALSinsulin NPH human 14 Units injection (intermediate acting) (NovoLIN N,HumuLIN N) 14 Units SUBCUTANEOUS BIDapixaban 5 mg tab(s) (ELIQUIS) 5 mg ORAL BIDaspirin, enteric coated 81 mg tab(s) (ASPIRIN, ENTERIC COATED) 81 mg ORALDAILYhydrocortisone 25 mg suppository (HEMORRHOIDAL HC) 25 mg RECTAL q 12 Halbuterol 2.5 mg /3 mL (0.083 %) 2.5 mg (PROVENTIL) 2.5 mg INHALATION q 4H while awakealbuterol 2.5 mg /3 mL (0.083 %) 2.5 mg (PROVENTIL) 2.5 mg INHALATION q 2H PRNpantoprazole DR 40 mg tab(s) (PROTONIX) 40 mg ORAL BID AC (0600/1600)guaiFENesin 1,200 mg ER tab(s) (MUCINEX) 1,200 mg ORAL q 12 Hbudesonide 0.5 mg/2 mL 0.5 mg (PULMICORT) 0.5 mg INHALATION BIDmetHIMazole 5 mg tab(s) (TAPAZOLE) 5 mg ORAL DAILYondansetron (PF) 4 mg injection (ZOFRAN) 4 mg INTRAVENOUS q 6 H PRN0.9% NaCl 10 mL 10 mL INTRAVENOUS q 12 H0.9% NaCl 20 mL 20 mL INTRAVENOUS PRNcodeine-guaiFENesin 5-10 mL oral liquid (ROBITUSSIN AC) 5-10 mL ORAL q 6 HPRNdextrose 40 % 15 g (INSTA-GLUCOSE) 15 g ORAL PRNglucagon 1 mg injection (GLUCAGEN) 1 mg INTRAMUSCULAR PRNdextrose 50% in water 25 mL syringe 12.5 g INTRAVENOUS PRNHYDROcodone 5 mg - acetaminophen 325 mg tablet (NORCO) 1-2 tablet ORAL q 6H PRNmontelukast 10 mg tab(s) (SINGULAIR) 10 mg ORAL AT BEDTIMEmagnesium oxide 400 mg tab(s) (MAG-OX) 400 mg ORAL DAILYspironolactone 25 mg tab(s) (ALDACTONE) 25 mg ORAL BIDhydroCHLOROthiazide 25 mg tab(s) (HYDRODIURIL, ESIDRIX) 25 mg ORAL DAILYiv contrast (radiology procedure) INTRAVENOUS DIRECTED PRNMISC LABS:Component Latest Ref Rng AND Units 12/20/2016Resp Virus Panel Source Nasopharyngeal SwabInfluenza A Virus Negative NegativeInfluenza A H1N1 2008 Negative NegativeInfluenza B Virus Negative NegativeRespiratory Syncytial Virus A Negative NegativeRespiratory Syncytial Virus B Negative NegativeParainfluenza Virus 1 Negative NegativeParainfluenza Virus 2 Negative NegativeParainfluenza Virus 3 Negative NegativeHuman Metapneumovirus Negative NegativeRhinovirus Negative NegativeAdenovirus B/E Negative NegativeAdenovirus C Negative NegativeSpecimen Source. Nasopharyngeal SwabInfluenza A PCR Negative for Influenza A by RT PCRInfluenza B PCR Negative for Influenza B by RT PCRRSV PCR Negative for RSV by RT PCRRADIOLOGY?12/15/16 CT ChestIMPRESSION:1. ??Mild atelectasis within bilateral lungs. Otherwise, no acuteabnormality.2. Ovoid area of fat attenuation interposed between right and left atriaconsistent with lipomatous hypertrophy of interatrial septum.??12/23/16 KUBNegative. No retained stool is seen to suggest constipation.??MOST RECENT EGDRemote: hx gastritis at that time??MOST RECENT COLONOSCOPY: 01/09/2013. (Peter Lerma MD - [place]).Screening1. The perianal and digital rectal examinations were normal.2. The colon (entire examined portion) was moderately tortuous.3. The exam was otherwise without abnormality.4. Good bowel prep?SIGNATURE: Ava Mo CNPDATE: December 27, 2016TIME: 11:40 AM Normal [facility] CONSULT PROG HNO ID: [id number] thor: Fern Alvarengae: Pulmonary DiseaseAuthor Type: PhysicianType: Consult Progress NoteFiled: 12/27/2016 12:56 PMNote Text: RESPIRATORY INSTITUTEPULMONARY MEDICINEIN-PATIENT CONSULT PROGRESS NOTESERVICE DATE: 12/27/2016ASSESSMENT:Asthm a with acute exacerbationBilateral atelectasisRecent sputum (+) E coli and MRSA ([facility] - 12/06/16)Atrial fibrillation with RVR; uncontrolledRemote history of DVT/PEMorbid obesityRectal bleeding?Suspected OSALeukocytosis, unspecified - likely secondary to steroidsRECOMMENDATIONS:Co ntinue nebulized?albuterol scheduled and PRN.Taper SoluMedrol and start Prednisone poAntibiotics as per ID - IV Zosyn.Mucinex 1200 mg every 12 hours.Pulmicort 0.5 nebulized BIDProtonix dose to 40 mg PO BIDBronchopulmonary hygiene - [facility] peak flows pre and post treatmentOccupational therapy evaluation and treatmentPlan discussed in detail with patient, RN and primary attending. Patientverbalizes understanding and is in agreement with the current managementplan.Total time spent in patient care includes but is not limited to patient/family discussions, collaborative discussions with other healthcareproviders, review of medical records, review of laboratory tests,radiology images/ results, microbiology and pathology data.SUBJECTIVECHIEF COMPLAINT: Shortness of breathINTERVAL HPI:Laura Stark is a 61 year old female status sinceprevious days visit is feeling improved. No acute events over the aiuu60p. Patient's heart rate remains uncontrolled, still in atrialfibrillation. Planning for FERNANDO/cardioversion this PM. Patient does feelthat her cough/wheeze/shortness of breath are gradually improving. Withmuscle weakness she reports, which she feels is due to steroids. Nofevers or chills. No chest pain. (+) BLE edema.MEDICATIONS:Current Facility-Administered Medications:morphine 1-2 mg injection 1-2 mg INTRAVENOUS q 4 H PRNmethylPREDNISolone sod succinate(PF) 40 mg injection (Solu-MEDROL) 40 mgINTRAVENOUS q 12 Hpsyllium Husk 1.56 g cap(s) 1.56 g ORAL DAILYlactobacillus rhamnosus 10 billion cell (CULTURELLE) capsule 1 capsuleORAL DAILYflecainide 100 mg tab(s) (TAMBOCOR) 100 mg ORAL q 12 Hdiltiazem CD 360 mg cap(s) (CARDIZEM CD, CARTIA XT) 360 mg ORAL DAILYpiperacillin-tazobact am 3.375 g in dextrose (iso-osmotic) 50 mL (ZOSYN)3.375 g INTRAVENOUS q 6 Hinsulin lispro 7 Units injection (rapid acting) (HumaLOG) 7 UnitsSUBCUTANEOUS w MEALSinsulin NPH human 14 Units injection (intermediate acting) (NovoLIN N,HumuLIN N) 14 Units SUBCUTANEOUS BIDapixaban 5 mg tab(s) (ELIQUIS) 5 mg ORAL BIDaspirin, enteric coated 81 mg tab(s) (ASPIRIN, ENTERIC COATED) 81 mg ORALDAILYhydrocortisone 25 mg suppository (HEMORRHOIDAL HC) 25 mg RECTAL q 12 Halbuterol 2.5 mg /3 mL (0.083 %) 2.5 mg (PROVENTIL) 2.5 mg INHALATION q 4H while awakealbuterol 2.5 mg /3 mL (0.083 %) 2.5 mg (PROVENTIL) 2.5 mg INHALATION q 2H PRNpantoprazole DR 40 mg tab(s) (PROTONIX) 40 mg ORAL BID AC (0600/1600)guaiFENesin 1,200 mg ER tab(s) (MUCINEX) 1,200 mg ORAL q 12 Hbudesonide 0.5 mg/2 mL 0.5 mg (PULMICORT) 0.5 mg INHALATION BIDmetHIMazole 5 mg tab(s) (TAPAZOLE) 5 mg ORAL DAILYondansetron (PF) 4 mg injection (ZOFRAN) 4 mg INTRAVENOUS q 6 H PRN0.9% NaCl 10 mL 10 mL INTRAVENOUS q 12 H0.9% NaCl 20 mL 20 mL INTRAVENOUS PRNcodeine-guaiFENesin 5-10 mL oral liquid (ROBITUSSIN AC) 5-10 mL ORAL q 6 HPRNdextrose 40 % 15 g (INSTA-GLUCOSE) 15 g ORAL PRNOrglucagon 1 mg injection (GLUCAGEN) 1 mg INTRAMUSCULAR PRNOrdextrose 50% in water 25 mL syringe 12.5 g INTRAVENOUS PRNHYDROcodone 5 mg - acetaminophen 325 mg tablet (NORCO) 1-2 tablet ORAL q 6H PRNmontelukast 10 mg tab(s) (SINGULAIR) 10 mg ORAL AT BEDTIMEmagnesium oxide 400 mg tab(s) (MAG-OX) 400 mg ORAL DAILYspironolactone 25 mg tab(s) (ALDACTONE) 25 mg ORAL BIDhydroCHLOROthiazide 25 mg tab(s) (HYDRODIURIL, ESIDRIX) 25 mg ORAL DAILYiv contrast (radiology procedure) INTRAVENOUS DIRECTED PRNCURRENT ALLERGIES:ALLERGIESAllerge n Reactions- Clindamycin Hives- Macrodantin [Nitrof* Other: See Comments Off-balance- Percocet [Oxycodone* Other: See Comments Nausea- Sulfa (Sulfonamide * Rash, Itching localized rash and itching all over- Zithromax [Azithrom* Rash, Itching localized rash and itching all over- Zenicef [Other] Rash, Itching itching in mouth; localized rash and itching all overPatient Vitals for the past 24 hrs: BP Temp Temp src Pulse Resp SpO2 Lzxnvg73/13/17 1035 - - - 72 20 - -12/27/16 1022 - - - 70 20 96 % -12/27/16 0834 116/61 37.1 ?C (98.8 ?F) Oral 81 19 98 % -12/27/16 0618 - - - 76 18 - -12/27/16 0602 - - - 73 18 97 % -12/27/16 0433 152/75 37.2 ?C (99 ?F) Oral 72 19 97 % -12/27/16 0400 - - - - - - 104.8 kg (231 lb 0.7 oz)12/26/16 2340 142/74 37 ?C (98.6 ?F) Oral 67 19 98 % -12/26/16 2034 135/81 36.5 ?C (97.7 ?F) Oral 77 19 98 % -12/26/16 1946 - - - 75 18 - -12/26/16 1932 - - - 72 18 98 % -12/26/16 1659 117/90 36.9 ?C (98.4 ?F) Oral 70 18 99 % -12/26/16 1358 - - - 71 18 96 % -12/26/16 1139 105/71 36.9 ?C (98.4 ?F) Oral 72 19 98 % -Intake/Output Summary (Last 24 hours) at 12/27/16 1058Last data filed at 12/27/16 0645 Gross per 24 hourIntake 511.4 mlOutput 975 mlNet -463.6 mlOBJECTIVEPHYSICAL EXAM:BP 116/61 Pulse 72 Temp (Src) 98.8 (Oral) Resp 20 Ht 5' 2 (1.58m) Wt 231 lb 0.7 oz (104.8kg) SpO2 96% BMI 42.25 kg/(m2).General appearance: Morbidly obese, well appearing, alert, in no acutedistressRespiratory: respirations are unlabored, expiratory wheezing in all lobesCardiovascular: irregularly irregular rhythm, no murmur noted.Extremities: Normal pulses. 1-2+ pitting edema bilateral lowerextremities.DATADiagn ostic tests reviewed for today's visit, films/specimens werepersonally reviewed by me:Most recent labs and imaging results.CBC, Coags, BMP, Mg, PhosRecent Labs 12/26/1704WBC 14.19* 13.19* 13.16*HB 12.1 12.3 12.4HCT 37.7 38.1 38.4PLT 206 193 212NA 131* 132 132K 3.4* 3.1* 3.5CHLOR 92* 91* 90*CO2 25 27 26BUN 45* 43* 51*CREAT 1.24 1.22 1.41*GLUC 129* 125* 158*CA 8.6 8.5 9.0Liver Function, Amylase, AND LipaseRecent Labs 12/26/1704TPROT 5.6* 5.5* 5.9*ALB 3.3* 3.2* 3.3*ALT 65* 62* 56*AST 17 22 28ALKPHOS 81 75 74TBILI 0.8 0.7 0.8SIGNATURE: Elvia Diaz PA-C PATIENT NAME: Laura StarkDATE: December 27, 2016 : 10:58 AM PAGER/CONTACT #: [id number] STAFF PHYSICIAN NOTE OF PERSONAL INVOLVEMENT IN CAREI have reviewed the progress note obtained and documented by the physicianassistant and I personally participated in the starkey components. I havediscussed the case and management of the patient's care. The followingcomments revise or confirm relevant starkey components of their note.IMPRESSION: This is a 61 year old female who presents with acute asthmaexacerbation and a fib with RVR. Asthma symptoms are better controlledwith iv steroids and nebulizer treatment. Her heart rate remainsuncontrolled and she is planned for cardioversion today.PLAN: taper solumedrol and switch to prednisone PO. The patient statedthat she has been on prednisone since september because of uncontrolledasthma. I discussed with her the need to evaluate her for Xolair or Nucalaor even consider thermal bronchoplasty for severe uncontrolled asthma.CARE COORDINATION: The majority of the visit was spent counseling and/orcoordinating care for the patient. Mpmm-go-jlbo time was 25 minutesSIGNATURE: Fern Turcios, MDPAGER: [id number] of SERVICE: December 27, 2016TIME of SERVICE: 12:55 PM [facility] CONSULT PROG HNO ID: [id number] thor: PARVIN Roldanervice: Infectious DiseaseAuthor Type: PhysicianType: Consult Progress NoteFiled: 12/27/2016 12:52 PMNote Text:INFECTIOUS DISEASE PROGRESS NOTEPatient Name: Laura Stark HISTORY:Back on RA. Feels better. No fevers. Leucocytosis fluctuating on steroids.Still weak. No diarrhea. ROS checked in details. All qs answered.Patient Active Hospital Problem List: Multinodular goiter (05/14/2011) Weakness (12/16/2016) Obesity, Class III, BMI >= 40 (morbid obesity) E66.01 (12/16/2016) Malnutrition of moderate degree (HCC) (12/16/2016) Asthma (12/23/2016) Hyperthyroidism (12/23/2016) Paroxysmal atrial fibrillation (HCC) (12/23/2016) CKD (chronic kidney disease) stage 3, GFR 30-59 ml/min (12/23/2016) Hypertension (12/23/2016) GERD (gastroesophageal reflux disease) (12/23/2016)ASSESSMENT:MRSA and E coli HCAP. [facility] [place] [facility] in sputumButtock woundAcute respiratory failureFailed OP PO abx treatment w doxyWeaknessObesity, Class III, BMI >= 40Malnutrition of moderate degreeRECOMMENDATIONS:Cont inue zosynCall micro for MICs for the PsAG w zosyn, appears S to cefepime, cipro andmerremSupportive careWean J6Uigwuprucj careMEDICATIONS: reviewed.Current hospital medications:morphine 1-2 mg injection 1-2 mg INTRAVENOUS q 4 H PRNmethylPREDNISolone sod succinate(PF) 40 mg injection (Solu-MEDROL) 40 mgINTRAVENOUS q 12 Hpsyllium Husk 1.56 g cap(s) 1.56 g ORAL DAILYlactobacillus rhamnosus 10 billion cell (CULTURELLE) capsule 1 capsuleORAL DAILYflecainide 100 mg tab(s) (TAMBOCOR) 100 mg ORAL q 12 Hdiltiazem CD 360 mg cap(s) (CARDIZEM CD, CARTIA XT) 360 mg ORAL DAILYpiperacillin-tazobact am 3.375 g in dextrose (iso-osmotic) 50 mL (ZOSYN)3.375 g INTRAVENOUS q 6 Hinsulin lispro 7 Units injection (rapid acting) (HumaLOG) 7 UnitsSUBCUTANEOUS w MEALSinsulin NPH human 14 Units injection (intermediate acting) (NovoLIN N,HumuLIN N) 14 Units SUBCUTANEOUS BIDapixaban 5 mg tab(s) (ELIQUIS) 5 mg ORAL BIDaspirin, enteric coated 81 mg tab(s) (ASPIRIN, ENTERIC COATED) 81 mg ORALDAILYhydrocortisone 25 mg suppository (HEMORRHOIDAL HC) 25 mg RECTAL q 12 Halbuterol 2.5 mg /3 mL (0.083 %) 2.5 mg (PROVENTIL) 2.5 mg INHALATION q 4H while awakealbuterol 2.5 mg /3 mL (0.083 %) 2.5 mg (PROVENTIL) 2.5 mg INHALATION q 2H PRNpantoprazole DR 40 mg tab(s) (PROTONIX) 40 mg ORAL BID AC (0600/1600)guaiFENesin 1,200 mg ER tab(s) (MUCINEX) 1,200 mg ORAL q 12 Hbudesonide 0.5 mg/2 mL 0.5 mg (PULMICORT) 0.5 mg INHALATION BIDmetHIMazole 5 mg tab(s) (TAPAZOLE) 5 mg ORAL DAILYondansetron (PF) 4 mg injection (ZOFRAN) 4 mg INTRAVENOUS q 6 H PRN0.9% NaCl 10 mL 10 mL INTRAVENOUS q 12 H0.9% NaCl 20 mL 20 mL INTRAVENOUS PRNcodeine-guaiFENesin 5-10 mL oral liquid (ROBITUSSIN AC) 5-10 mL ORAL q 6 HPRNdextrose 40 % 15 g (INSTA-GLUCOSE) 15 g ORAL PRNglucagon 1 mg injection (GLUCAGEN) 1 mg INTRAMUSCULAR PRNdextrose 50% in water 25 mL syringe 12.5 g INTRAVENOUS PRNHYDROcodone 5 mg - acetaminophen 325 mg tablet (NORCO) 1-2 tablet ORAL q 6H PRNmontelukast 10 mg tab(s) (SINGULAIR) 10 mg ORAL AT BEDTIMEmagnesium oxide 400 mg tab(s) (MAG-OX) 400 mg ORAL DAILYspironolactone 25 mg tab(s) (ALDACTONE) 25 mg ORAL BIDhydroCHLOROthiazide 25 mg tab(s) (HYDRODIURIL, ESIDRIX) 25 mg ORAL DAILYiv contrast (radiology procedure) INTRAVENOUS DIRECTED PRNPHYSICAL EXAM:Vital signs: BP 116/61 Pulse 81 Temp 37.1 ?C (98.8 ?F) (Oral) Resp19 Ht 157.5 cm (5' 2) Wt 104.8 kg (231 lb 0.7 oz) SpO2 98% BMI42.26 kg/m2Temp (24hrs), Av.9 ?C (98.5 ?F), Min:36.5 ?C (97.7 ?F), Max:37.2 ?C(99 ?F)General: alert, oriented, NADLungs: bilaterally coarse vesicular BSHeart: regular rate and rhythmAbdomen: soft, non tender, non distended, BS+Extremities: no edemaNo rashesNo joint inflammationNeck suppleLines okNo CVATLabs:Recent Labs 12/26/1704WBC 14.19* 13.19* 13.16*HB 12.1 12.3 12.4HCT 37.7 38.1 38.4PLT 206 193 212NA 131* 132 132K 3.4* 3.1* 3.5CHLOR 92* 91* 90*CO2 25 27 26BUN 45* 43* 51*CREAT 1.24 1.22 1.41*Microbiology data: reviewedImaging data: Du Mcginnis [id number]/27/201610 :27 AM Normal [facility] Comp Metabolic Panelon 12-27 Alanine aminotransferase (ALT) 65 U/L High 0-45 [facility] Comment on above: Performed By: #### C BCDIF, PT, PTT, CMP, MG1 ####[facility] [address] [place], [place] [phone] Albumin 3.3 g/dL Low 3.5-5.0 [facility] Comment on above: Performed By: #### C BCDIF, PT, PTT, CMP, MG1 ####[facility] [address] [place] [address] Alkaline phosphatase (ALP) 81 U/L Normal 40-150 [facility] Comment on above: Performed By: #### C BCDIF, PT, PTT, CMP, MG1 ####[facility] [address] [place] [address] Anion gap 14 mmol/L Normal 0-15 [facility] Comment on above: Performed By: #### C BCDIF, PT, PTT, CMP, MG1 ####[facility] [address] [place] [address] Aspartate aminotransferase (AST) 17 U/L Normal 7-40 [facility] Comment on above: Performed By: #### C BCDIF, PT, PTT, CMP, MG1 ####[facility] [address] [place] [address] Bilirubin (total) 0.8 mg/dL Normal 0.0-1.5 [facility] Comment on above: Performed By: #### C BCDIF, PT, PTT, CMP, MG1 ####[facility] [address] [place] [address] Calcium 8.6 mg/dL Normal 8.5-10.5 [facility] Comment on above: Performed By: #### C BCDIF, PT, PTT, CMP, MG1 ####[place] [address] Chloride 92 mmol/L Low 98-110 [facility] Comment on above: Performed By: #### C BCDIF, PT, PTT, CMP, MG1 ####[facility] [address] [place] [address] CO2 25 mmol/L Normal 23-32 [facility] Comment on above: Performed By: #### C BCDIF, PT, PTT, CMP, MG1 ####[facility] [address] [place] [address] Creatinine 1.24 mg/dL Normal 0.70-1.40 [facility] Comment on above: Performed By: #### C BCDIF, PT, PTT, CMP, MG1 ####[facility] [address] [place] [address] eGFR (non-black) 44 . Normal [facility] Comment on above: Result Comment: eGFR (Estimated GFR) Units of measure: mL/min/1.73 meters squaredeGFR is derived from the reexpressed MDRD Study equation using the following parameters: serum creatinine, age, gender and race. The creatinine assay has been calibrated to be traceable to IDMS.An eGFR <60 mL/min/1.73m2 for >3 months is consistent with chronic kidney disease. Refer to KDOQI guidelines for clinical interpretation.In patients with unstable renal function, e.g. those with acute kidney injury, the eGFR may not accurately reflect actual GFR. Performed By: #### C BCDIF, PT, PTT, CMP, MG1 ####[facility] [address] [place] [address] eGFR (non-black) 53 mL/min/{1.73_m2} [facility] Comment on above: Performed By: #### C BCDIF, PT, PTT, CMP, MG1 ####[facility] [address] [place] [address] Glucose mass conc 129 mg/dL High 65-100 [facility] Comment on above: Performed By: #### C BCDIF, PT, PTT, CMP, MG1 ####[facility] [address] [place] [address] Potassium molar conc 3.4 mmol/L Low 3.5-5.0 [facility] Comment on above: Performed By: #### C BCDIF, PT, PTT, CMP, MG1 ####[place] [address] Protein 5.6 g/dL Low 6.0-8.4 [facility] Comment on above: Performed By: #### C BCDIF, PT, PTT, CMP, MG1 ####[place] [address] Sodium 131 mmol/L Low 132-148 [facility] Comment on above: Performed By: #### C BCDIF, PT, PTT, CMP, MG1 ####[facility] [address] [place] [address] Urea nitrogen 45 mg/dL High 8-25 [facility] Comment on above: Performed By: #### C BCDIF, PT, PTT, CMP, MG1 ####[facility] [address] [place] [phone] Magnesiumon 12-27-2016 Magnesium 2.4 mg/dL Normal 1.7-2.6 [facility] Comment on above: Performed By: #### C BCDIF, PT, PTT, CMP, MG1 ####[facility] [address] [place] [phone] NURSING PROGon 12-27-2016 NURSING PROG HNO ID: [id number] thor: Mckenzie (Rn) Sergio, RNService: (none)Author Type: Registered NurseType: Nursing Progress NoteFiled: 12/27/2016 1:26 PMNote Text: Nursing Progress NotePatient Name: Laura StarkMRN: [id number] [facility] Daily Note:Attempted to call report to floor. Nurse in a pt room and will returnphone call.This note was completed by: Mckenzie Hill RN [facility] NUTRITIONon 12-27-2016 NUTRITION HNO ID: [id number] thor: Lamar Cesar) FerroService: Nutrition TherapyAuthor Type: Registered DietitianType: NutritionFiled: 12/27/2016 9:32 AMNote Text:NUTRITION THERAPY PROGRESS NOTESERVICE DATE: 12/27/2016SERVICE TIME: 914RECOMMENDED DIAGNOSIS: MODERATE PROTEIN-CALORIE MALNUTRITION perRegistered Dietitian on 12/23NUTRITION CARE PLANIntervention:Trial medical nutrition [facility] 1x dailyAdvance diet as medically able (NPO for procedure)Provide and encourage nutrient/caloric dense foods to help meet estimatedneeds.Reviewed current labs and physician progress notesWill follow up again within 4 days or as consultedMonitor and Evaluation:Goal: Meet >75% of estimated needsDischarge Nutrition Recommendations:Diet: RegularSupplements: Energy dense/high protein commercial supplement shake as perpatient preference.Interval History: PO intake continues to remain poor <50%; continues toreport altered taste and nauseaAdmission Weight: 107 kg (236 lb)Current Weight: 104.8 kg (231 lb 0.7 oz)Body mass index is 42.26 kg/(m2). class 3 obesityMNT Billing Type: Re-assess/15 min 1 unitSIGNATURE: Lamar Kaplan RD PATIENT NAME: Laura StarkDATE: December 27, 2016 : 9:29 AM [facility] PLAN OF CAREon 12-27-2016 PLAN OF CARE HNO ID: [id number] thor: Natasha Enciso (Rn) Naldo, RNService: Case ManagementAuthor Type: Registered NurseType: Plan of CareFiled: 12/27/2016 10:24 AMNote Text:MULTIDISCIPLINARY ROUNDSSERVICE DATE: 12/27/2016 ADMISSION DATE: 12/15/2016SERVICE TIME: 10:23 AM ANTICIPATED D/C DATE: 1-2 daysProblem List:ACTIVE PROBLEM LISTMultinodular GoiterWeaknessObesity, Class III, BMI >= 40 (morbid obesity) E66.01Malnutrition of Moderate Degree (Hcc)AsthmaHyperthyroidism Paroxysmal Atrial Fibrillation (Hcc)Ckd (Chronic Kidney Disease) Stage 3, Gfr 30-59 Ml/MinHypertensionGerd (Gastroesophageal Reflux Disease)Attendees Present at Rounds:Motor Tester: Lisaly: sisterPatient: Laura Charles Nurse: Tristian Discussed on Rounds:Plan of CareAnticipated Discharge Disposition:Jail FacilityLast Vitals: BP 116/61 Pulse 81 Temp (Src) 98.8 (Oral) Resp 19 Ht5' 2 (1.58m) Wt 231 lb 0.7 oz (104.8kg) SpO2 98% BMI 42.25kg/(m2).FERNANDO and cardioversion TODAYPLAN [facility], possible need to re precertsince facility ready since 12/23/16Transport Ambulette, patient c/o weakness AND took three to transfer heryesterday.Nursing:Bleed ing Intervention(s) Plan: Assess for Related Signs/Symptom ofBleedingBleeding Goals/Outcomes: Free of Signs/Symptom Active BleedingBleeding Goal Target Achievement Date: 12/29/16Risk for InfectionIntervention(s) Plan: Assess Signs/Symptom of InfectionRisk for Infection Goals/Outcomes: Patient Without Signs/Symptoms ofInfectionsRisk For Infection Goal Target Achievement Date: 12/29/16Pain Intervention(s) Plan: Pain Assessment, Management, Reassessment PerScoring ToolPain Goals/Outcomes: Decrease in Pain Level per Scoring ToolPain Goal Target Achievement Date: 12/29/16Respiratory Alteration Intervention(s) Plan: Assess and MonitorRespiratory StatusRespiratory Alteration Goals/Outcomes: Decrease of Respiratory DistressRespiratory Goal Target Achievement Date: 12/29/16DOCUMENTED BY: Natasha Hitchcock RN PATIENT NAME: Laura StarkDATE: December 27, 2016 : 10:23 AM CSN: [id number] [facility] PROCEDUREon 12-27-2016 PROCEDURE HNO ID: [id number] thor: Ronny Sparrowrvice: Cardiovascular DiseaseAuthor Type: PhysicianType: ProceduresFiled: 12/27/2016 12:40 PMNote Text:BRIEF OPERATIVE NOTE - TEEPatient Name: Laura StarkMRN: [id number] Date: 12/27/2016INDICATION: AFSEDATION: MACPT/INR: EliquisFINDINGS:Normal EFNo smoke or thrombusMR ARCOMPLICATIONS: NoneCONDITION: GoodFOLLOW UP: Two weeksSignature: ALICJA Fountainate: December 27, 2016Time: 12:39 PM [facility] PROCEDURE HNO ID: [id number] thor: Ronny Sparrowrvice: Cardiovascular DiseaseAuthor Type: PhysicianType: ProceduresFiled: 12/27/2016 12:39 PMNote Text:BRIEF OPERATIVE NOTE - CARDIOVERSIONPatient Name: Laura StarkMRN: [id number] Date: 12/27/2016INDICATION: Atrial fibrillationSEDATION: MACJOULES: 275PT/INR: EliquisFINDINGS: Converted to sinusCOMPLICATIONS: NoneCONDITION: StableFOLLOW UP: Two weeksSignature: ALICJA Fountainate: November 13, 2017Time: 12:37 PM Normal [facility] PROGRESSon 12-27-2016 PROGRESS HNO ID: [id number] thor: Ronny AntoinerapuService: Cardiovascular DiseaseAuthor Type: PhysicianType: Progress NotesFiled: 12/27/2016 4:12 PMNote Text:INPATIENT CONSULT PROGRESS NOTESPatient Name: Laura StarkMRN: [id number] of SERVICE: 12/27/2016TIME of SERVICE: 4:10 PMCONSULTING SERVICE: CardiologyINTERVAL HPI: Doing well. FERNANDO showed no smoke or thrombus and she wassuccessfully cardioverted to normal sinus. No dyspnea or palpitations.DRUGS REVIEWED:ASSESSMENT AND PLAN:Status post A Flutter and now in sinus after CVRelatively stable cardiac statusExacerbation of asthma and tracheobronchitisHyponatre jero and hypokalemiaAtelectasisObes ity and probable obstructive sleep apneaHyperactive thyroid: currently on methimazoleContinue current therapy including Tambocor?PHYSICAL EXAM:Blood pressure 134/74, pulse 87, temperature 36.9 ?C (98.4 ?F),temperature source Oral, resp. rate 20, height 157.5 cm (5' 2), .8 kg (237 lb 10.5 oz), SpO2 96 %.??Body mass index is 43.47 kg/(m2).GENERAL: ?Alert, no distress, cooperativeNECK: No jugulovenous distention, No carotid bruits, Carotid pulse normalcontour, SuppleLUNGS: Lungs clear to auscultation, Good diaphragmatic excursionCARDIAC: irregular?S1 and S2; no rubs, murmurs, or gallopsABDOMEN:benign, soft, flat, non-tender, no masses, normal bowel soundsNEURO: Awake, alert and oriented x 3EXTREMITIES: Extremities normal, no deformities, 1+edema, But no clubbingor skin discoloration. Good capillary refill., No ulcersPULSES: 2+ radial, 2+?LABS: CBC:Recent Labs WBC 14.19*RBC 4.41HB 12.1HCT 37.7PLT 206MCV 85.5MCH 27.4MPV 10.6CMP:Recent Labs NA 131*K 3.4*CHLOR 92*CO2 25BUN 45*CREAT 1.24GLUC 129*TPROT 5.6*CA 8.6MG 2.4TBILI 0.8ALKPHOS 81ALT 65*AST 17ANION 14Cardiac Enzymes: No results for input(s): CK, MB, CKMB, TROPT in the last24 hours.SIGNATURE: Ronny Antonio BECKY Valente; [phone]: December 27, 2016TIME: 4:10 PM Normal [facility] PROGRESS HNO ID: [id number] thor: Kiara Fleming: General Internal MedicineAuthor Type: PhysicianType: Progress NotesFiled: 12/27/2016 12:51 PMNote Text:INTERNAL MEDICINE PROGRESS NOTEADMITTING PHYSICIAN: Kiara Galloway COMPLAINT: improving cough and wheezing today, able to expectoratenow, no further bleeding, feeling weak, legs are week.Current Facility-Administered Medications:[MAR Hold due to Transfer] morphine 1-2 mg injection 1-2 mg INTRAVENOUS q4 H PRN[MAR Hold due to Transfer] methylPREDNISolone sod succinate(PF) 40 mginjection (Solu-MEDROL) 40 mg INTRAVENOUS q 12 Hlactated ringers infusion 50 mL/hr INTRAVENOUS CONTINUOUSlactated ringers infusion 50 mL/hr INTRAVENOUS (PACU) CONTINUOUSfentaNYL 50 mcg/mL 50 mcg injection (SUBLIMAZE) 50 mcg INTRAVENOUS (PACU)PRNHYDROcodone 5 mg - acetaminophen 325 mg tablet (NORCO) 1 tablet ORAL(PACU) PRNondansetron orally disintegrating 4 mg tab(s) (ZOFRAN ODT) 4 mg ORAL(PACU) PRNOrondansetron (PF) 4 mg injection (ZOFRAN) 4 mg INTRAVENOUS (PACU) PRNmeperidine (PF) 12.5 mg injection (DEMEROL) 12.5 mg INTRAVENOUS (PACU) PRN[MAR Hold due to Transfer] psyllium Husk 1.56 g cap(s) 1.56 g ORAL DAILY[MAR Hold due to Transfer] lactobacillus rhamnosus 10 billion cell(CULTURELLE) capsule 1 capsule ORAL DAILY[MAR Hold due to Transfer] flecainide 100 mg tab(s) (TAMBOCOR) 100 mg ORALq 12 H[MAR Hold due to Transfer] diltiazem CD 360 mg cap(s) (CARDIZEM CD, CARTIAXT) 360 mg ORAL DAILY[MAR Hold due to Transfer] piperacillin-tazobactam 3.375 g in dextrose(iso-osmotic) 50 mL (ZOSYN) 3.375 g INTRAVENOUS q 6 H[MAR Hold due to Transfer] insulin lispro 7 Units injection (rapid acting)(HumaLOG) 7 Units SUBCUTANEOUS w MEALS[MAR Hold due to Transfer] insulin NPH human 14 Units injection(intermediate acting) (NovoLIN N, HumuLIN N) 14 Units SUBCUTANEOUS BID[MAR Hold due to Transfer] apixaban 5 mg tab(s) (ELIQUIS) 5 mg ORAL BID[MAR Hold due to Transfer] aspirin, enteric coated 81 mg tab(s) (ASPIRIN,ENTERIC COATED) 81 mg ORAL DAILY[MAR Hold due to Transfer] hydrocortisone 25 mg suppository (HEMORRHOIDALHC) 25 mg RECTAL q 12 H[MAR Hold due to Transfer] albuterol 2.5 mg /3 mL (0.083 %) 2.5 mg(PROVENTIL) 2.5 mg INHALATION q 4 H while awake[MAR Hold due to Transfer] albuterol 2.5 mg /3 mL (0.083 %) 2.5 mg(PROVENTIL) 2.5 mg INHALATION q 2 H PRN[MAR Hold due to Transfer] pantoprazole DR 40 mg tab(s) (PROTONIX) 40 mgORAL BID AC (0600/1600)[MAR Hold due to Transfer] guaiFENesin 1,200 mg ER tab(s) (MUCINEX) 1,200mg ORAL q 12 H[MAR Hold due to Transfer] budesonide 0.5 mg/2 mL 0.5 mg (PULMICORT) 0.5mg INHALATION BID[MAR Hold due to Transfer] metHIMazole 5 mg tab(s) (TAPAZOLE) 5 mg ORALDAILY[MAR Hold due to Transfer] ondansetron (PF) 4 mg injection (ZOFRAN) 4 mgINTRAVENOUS q 6 H PRN[MAR Hold due to Transfer] 0.9% NaCl 10 mL 10 mL INTRAVENOUS q 12 H[MAR Hold due to Transfer] 0.9% NaCl 20 mL 20 mL INTRAVENOUS PRN[MAR Hold due to Transfer] codeine-guaiFENesin 5-10 mL oral liquid(ROBITUSSIN AC) 5-10 mL ORAL q 6 H PRN[MAR Hold due to Transfer] dextrose 40 % 15 g (INSTA-GLUCOSE) 15 g ORALPRNOr[MAR Hold due to Transfer] glucagon 1 mg injection (GLUCAGEN) 1 mgINTRAMUSCULAR PRNOr[MAR Hold due to Transfer] dextrose 50% in water 25 mL syringe 12.5 gINTRAVENOUS PRN[MAR Hold due to Transfer] HYDROcodone 5 mg - acetaminophen 325 mg tablet(NORCO) 1-2 tablet ORAL q 6 H PRN[MAR Hold due to Transfer] montelukast 10 mg tab(s) (SINGULAIR) 10 mg ORALAT BEDTIME[MAR Hold due to Transfer] magnesium oxide 400 mg tab(s) (MAG-OX) 400 mgORAL DAILY[MAR Hold due to Transfer] spironolactone 25 mg tab(s) (ALDACTONE) 25 mgORAL BID[MAR Hold due to Transfer] hydroCHLOROthiazide 25 mg tab(s) (HYDRODIURIL,ESIDRIX) 25 mg ORAL DAILY[MAR Hold due to Transfer] iv contrast (radiology procedure) INTRAVENOUSAS DIRECTED PRNINTERVAL HISTORY OF PRESENT ILLNESS: No n/v/d.No orthopnea, pnd,cpain, fever, chills.Consult notes reviewed.OBJECTIVEPHYSICAL EXAM:Blood pressure 140/70, pulse 97, temperature 37.1 ?C (98.7 ?F),temperature source Oral, resp. rate 20, height 157.5 cm (5' 2), nnwbab653.8 kg (231 lb 0.7 oz), SpO2 96 %.Body mass index is 42.26 kg/(m2).GENERAL: Morbidly Obese, Alert, no DistressNECK: SuppleLUNGS: decreased a/e, occ ronchi.CARDIAC: s1s2: irregABDOMEN: Soft, nontenderEXTREMITIES: Extremities normal, no deformities, edema, clubbing or skindiscoloration. Good capillary refill.NEURO: Alert, oriented X 3, Gait normal. Non-focal. Reflexes normal andsymmetric. Sensation grossly intact.PULSES: 2+ radialDATA:Diagnostic tests reviewed for today's visit:Most recent labs and imaging results.ASSESSMENT/PLANAct aravind Problems: Acute Asthma exacerbation with HCAP? recent sputum cx with MRSA and E.coli: iv steroids and iv zosyn, Continue nebs. Noted Pulmonary eval.Continue codeine cough syrup, Weakness POA: Yes Assessment AND Plan: due to above. Obesity, Class III, BMI >= 40 (morbid obesity) E66.01 Assessment AND Plan: encourage wt. Loss. Hyperglycemia due to steroids: Continue basal and SSI.PAF:appreciate Endo eval for hyperthyroidism,Appreciate : Cardio eval, for CVN later today.Noted PT/OT eval.D/w cardio.SIGNATURE: Kiara Nugent MD PATIENT NAME: Laura Stark PAGER/CONTACT #: [facility] THERAPY NTon 12-27-2016 THERAPY NT HNO ID: [id number] thor: Ange (Ot) Sushantervice: Occupational TherapyAuthor Type: Occupational TherapistType: Therapy (PT/OT/Speech/Resp)Filed: 12/27/2016 1:47 PMNote Text:OCCUPATIONAL THERAPY MISSED VISITSERVICE DATE: 12/27/2016SERVICE TIME: 1200 to 1201ROOM: NH Cath LabAttempted Treatment. Patient not seen due to Test/Procedure. Willre-attempt as schedule allows.SIGNATURE: Ange Morrow OTR/L PATIENT NAME: Laura StarkDATE: December 27, 2016 : 1:47 PM PAGER/CONTACT #:[phone] [facility] US DVT LOWER BILon 7 US DVT LOWER ANGELO * * *Final Report* * *DATE OF EXAM: Dec 27 2016 8:28PM U 1005 - US DVT LOWER ANGELO / REASON: Leg pain * * * * Physician Interpretation * * * * PROCEDURE: US DVT LOWER BILINDICATION: Leg painTECHNIQUE: Compression Doppler ultrasound of the deep veins of both lower extremities. Images were stored in a permanent archive.FINDINGS: There is normal venous flow, compressibility, and augmentation of the deep veins of both lower extremities. Calf veins were not visualized secondary to body habitus and/or soft tissue edema.There are no findings to suggest deep venous thrombosis. There are small bilateral Crook's cysts, measuring 4.2 x 4.2 x 1.2 cm on the right and 3.1 x 2.0 x 0.9 cm on the left.IMPRESSION:Negative for DVT. Nonvisualization of the calf veinsSmall bilateral Crook cystsTranscriptionist: ALBARO Transcribe Date/Time: Dec 27 2016 8:57PDictated by : CHRISTIANO LORENZO MDThis examination was interpreted and the report reviewed and electronically signed by: CHRISTIANO LORENZO MD on Dec 27 2016 8:58PM [id number] Normal [facility] CBCon 12-26-2016 Erythrocyte distribution width Auto Ratio (RBC) 16.7 % High 11.5-15.0 [facility] Comment on above: Performed By: #### C BCDIF, PT, PTT, CMP, MG1 ####[place] [address] Erythrocytes (RBC) 4.46 10*6/uL Normal 3.90-5.20 [facility] Comment on above: Performed By: #### C BCDIF, PT, PTT, CMP, MG1 ####[place] [address] Hematocrit (HCT) 38.1 % Normal 36.0-46.0 [facility] Comment on above: Performed By: #### C BCDIF, PT, PTT, CMP, MG1 ####[place] [address] Hemoglobin mass conc (Bld) 12.3 g/dL Normal 11.5-15.5 [facility] Comment on above: Performed By: #### C BCDIF, PT, PTT, CMP, MG1 ####[place] [address] MCH 27.6 pG Normal 26.0-34.0 [facility] Comment on above: Performed By: #### C BCDIF, PT, PTT, CMP, MG1 ####[place] [address] MCHC mass conc (RBC) 32.3 g/dL Normal 30.5-36.0 [facility] Comment on above: Performed By: #### C BCDIF, PT, PTT, CMP, MG1 ####[facility] [id number] [place] [address] MCV 85.4 fL Normal 80.0-100.0 [facility] Comment on above: Performed By: #### C BCDIF, PT, PTT, CMP, MG1 ####[facility] Gpnequxbmx45[address] Platelet mean volume (PMV) 10.6 fL Normal 9.0-12.7 [facility] Comment on above: Performed By: #### C BCDIF, PT, PTT, CMP, MG1 ####[facility] Bwmafwxvrg6135 [address] Platelets 193 10*3/uL Normal 150-400 [facility] Comment on above: Performed By: #### C BCDIF, PT, PTT, CMP, MG1 ####[facility] [address] [place] [id number] WBC (Leukocytes) 13.19 10*3/uL High 3.70-11.00 [facility] Comment on above: Performed By: #### C BCDIF, PT, PTT, CMP, MG1 ####[facility] Rmbxriwxnh3045 [address] CONSULT PROGon 12-26-2016 CONSULT PROG HNO ID: [id number] thor: Nixon Menjivar: Clinical CardiologyAuthor Type: PhysicianType: Consult Progress NoteFiled: 12/26/2016 2:06 PMNote Text:PROGRESS NOTE CARDIOLOGY SERVICESERVICE DATE: 12/26/2016SERVICE TIME: 1:14 PMSUBJECTIVEINTERIM HISTORY: no events overnight- she continues to have intermittenttimes when her heart rate is very high - over 130 beats per min; rhythmappears to be aflutter with 2:1 AV blockOBJECTIVEPHYSICAL EXAM:Body mass index is 41.85 kg/(m2).O2 Therapy: Room AirNo Data RecordedPatient Vitals for the past 24 hrs: BP Temp Temp src Pulse Resp SpO2 Oyrhug51/12/17 1139 105/71 36.9 ?C (98.4 ?F) Oral 72 19 98 % -12/26/16 1000 - - - 105 18 - -12/26/16 0950 - - - 100 18 97 % -12/26/16 0747 107/56 36.3 ?C (97.3 ?F) Oral 100 16 97 % -12/26/16 0619 - - - 60 18 - -12/26/16 0608 - - - 61 18 97 % -12/26/16 0422 132/73 36.4 ?C (97.5 ?F) Oral (!) 57 19 100 % 103.8 kg (228lb 13.4 oz)12/25/16 2304 123/62 36.4 ?C (97.5 ?F) Oral 70 18 96 % -12/25/162021 - - - 76 20 96 % -12/25/162018 129/67 36.4 ?C (97.5 ?F) Oral 74 19 97 % -12/25/16 1505 121/65 36.9 ?C (98.4 ?F) Oral 78 18 98 % -Pleasant, comfortable, not in acute distress.Awake, alert, oriented times 3.Moves all extremities.SKIN: No rash or lumps.HEENT: Normocephalic, face symmetrical.NECK: Supple, no JVD, no carotid bruit, no thyromegaly.LUNGS: Clear to auscultation bilaterally.CARDIAC: PMI present, RRR, S1 and S2, no S3 or S4, no additional heartsounds or murmurs.ABDOMEN: Soft, nontender, bowel sounds present.EXTREMITIES: No edema.PULSES: Peripheral pulses present.MEDICATIONS:[facility] medications:psyllium Husk 1.56 g cap(s) 1.56 g ORAL DAILYlactobacillus rhamnosus 10 billion cell (CULTURELLE) capsule 1 capsuleORAL DAILYflecainide 100 mg tab(s) (TAMBOCOR) 100 mg ORAL q 12 Hdiltiazem CD 360 mg cap(s) (CARDIZEM CD, CARTIA XT) 360 mg ORAL DAILYpiperacillin-tazobact am 3.375 g in dextrose (iso-osmotic) 50 mL (ZOSYN)3.375 g INTRAVENOUS q 6 Hinsulin lispro 7 Units injection (rapid acting) (HumaLOG) 7 UnitsSUBCUTANEOUS w MEALSinsulin NPH human 14 Units injection (intermediate acting) (NovoLIN N,HumuLIN N) 14 Units SUBCUTANEOUS BIDapixaban 5 mg tab(s) (ELIQUIS) 5 mg ORAL BIDaspirin, enteric coated 81 mg tab(s) (ASPIRIN, ENTERIC COATED) 81 mg ORALDAILYhydrocortisone 25 mg suppository (HEMORRHOIDAL HC) 25 mg RECTAL q 12 HmethylPREDNISolone sod succinate(PF) 60 mg injection (Solu-MEDROL) 60 mgINTRAVENOUS q 12 Halbuterol 2.5 mg /3 mL (0.083 %) 2.5 mg (PROVENTIL) 2.5 mg INHALATION q 4H while awakealbuterol 2.5 mg /3 mL (0.083 %) 2.5 mg (PROVENTIL) 2.5 mg INHALATION q 2H PRNpantoprazole DR 40 mg tab(s) (PROTONIX) 40 mg ORAL BID AC (0600/1600)guaiFENesin 1,200 mg ER tab(s) (MUCINEX) 1,200 mg ORAL q 12 Hbudesonide 0.5 mg/2 mL 0.5 mg (PULMICORT) 0.5 mg INHALATION BIDmetHIMazole 5 mg tab(s) (TAPAZOLE) 5 mg ORAL DAILYmorphine 1-2 mg injection 1-2 mg INTRAVENOUS q 4 H PRNondansetron (PF) 4 mg injection (ZOFRAN) 4 mg INTRAVENOUS q 6 H PRN0.9% NaCl 10 mL 10 mL INTRAVENOUS q 12 H0.9% NaCl 20 mL 20 mL INTRAVENOUS PRNcodeine-guaiFENesin 5-10 mL oral liquid (ROBITUSSIN AC) 5-10 mL ORAL q 6 HPRNdextrose 40 % 15 g (INSTA-GLUCOSE) 15 g ORAL PRNglucagon 1 mg injection (GLUCAGEN) 1 mg INTRAMUSCULAR PRNdextrose 50% in water 25 mL syringe 12.5 g INTRAVENOUS PRNHYDROcodone 5 mg - acetaminophen 325 mg tablet (NORCO) 1-2 tablet ORAL q 6H PRNmontelukast 10 mg tab(s) (SINGULAIR) 10 mg ORAL AT BEDTIMEmagnesium oxide 400 mg tab(s) (MAG-OX) 400 mg ORAL DAILYspironolactone 25 mg tab(s) (ALDACTONE) 25 mg ORAL BIDhydroCHLOROthiazide 25 mg tab(s) (HYDRODIURIL, ESIDRIX) 25 mg ORAL DAILYiv contrast (radiology procedure) INTRAVENOUS DIRECTED PRNDATA:Diagnostic tests reviewed for today's visit:Most recent labsMost recent imagingMost recent EKGPast 72 Hour Labs:Recent Labs 515WBC 13.19*RBC 4.46HB 12.3HCT 38.1MCV 85.4MCH 27.6MCHC 32.3RDWCV 16.7*PLT 193MPV 10.6GLUC 125*BUN 43*CREAT 1.22NA 132K 3.1*CHLOR 91*CO2 27TPROT 5.5*ALB 3.2*CA 8.5ALKPHOS 75TBILI 0.7AST 22ALT 62*Last Lab Drawn:TSH 0.242 12/18/2016ASSESSMENT/PLAN1. Persistent atrial flutter with intermittent RVR- on further evaluationof telemetry I do NOT think that she has had periods of NSR - she has beenin AFL the entire time2. Acute asthma exacerbation3. Hyperthyroidism4. CKD5. [facility] has recent echo showing normal LV systolic function and [facility] periods of tachycardia where her rate is not wellcontrolled?Plan:contin ue flecainide 100 mg BIDcontinue diltiazem to 300 mg dailyContinue methimazoleI would favor FERNANDO and cardioversion prior to discharge due to inability tocontrol her heart rateWill make NPO after midnight in case Dr. Handy wants to schedule thistomorrow?Dr. Handy back tomorrow to coverSIGNATURE: Nixon Burton MD PATIENT NAME: Laura StarkDATE: December 26, 2016 : 1:14 PM PAGER/CONTACT #: [facility] CONSULT PROG HNO ID: [id number] thor: Toma GoldbergbService: GastroenterologyAuthor Type: PhysicianType: Consult Progress NoteFiled: 12/26/2016 11:23 AMNote Text:GASTROENTEROLOGY CONSULT PROGRESS NOTEPatient Name: Laura StarkMRN: [id number] DATE: December 26, 2016SERVICE TIME: 10:49 AMASSESSMENT1. Rectal bleeding - suspect hemorrhoidal in the context of constipation2. Fecal leakage with constipation3. GERD4. Asthma exacerbation / PNA (MRSA and E.coli)5. New pAFIB (Eliquis/aspirin) / Hyperthyroidism??PLAN- Continue Hemorrhoidal HC 25 mg DC twice daily- Continue psyllium 2 capsules daily- Stool log- If rectal bleeding recurs then may need to consider colonoscopy butwould defer until pulmonary status improves- Continue Culturelle daily- Continue Protonix 40 mg po twice daily- Regular diet- Mgmt of #4 per IM/pulmonology/ID. Mgmt of #5 percardiology/endocrinolog y?Patient seen and examined. Discussed with mid level provider. Starkey findingsconfirmed. Plan as outlined.Reports feeling tired. Still with wheezing. No further rectal bleeding.H/H stable. Bowel regimen as above.Toma Funk MDNovember 201611:23 AM INTE RVAL HPI: She reports feeling exhausted. The stool leakage hadimproved yesterday evening but recurred this am. Per nursing she did nottake her steroid suppositories. I discussed with the patient importance ofcompliance. She reports having a soft, brown BM yesterday. No furtherrectal bleeding. No abdominal pain. Intermittent nausea.PHYSICAL EXAM:Patient Vitals for the past 24 hrs: BP Temp Temp src Pulse Resp SpO2 Btasjp90/12/17 0747 107/56 36.3 ?C (97.3 ?F) Oral 100 16 97 % -12/26/16 0422 132/73 36.4 ?C (97.5 ?F) Oral (!) 57 19 100 % 103.8 kg (228lb 13.4 oz)12/25/16 2304 123/62 36.4 ?C (97.5 ?F) Oral 70 18 96 % -12/25/16 2019 129/67 36.4 ?C (97.5 ?F) Oral 74 19 97 % -12/25/16 1505 121/65 36.9 ?C (98.4 ?F) Oral 78 18 98 % -12/25/16 1155 105/70 37.1 ?C (98.8 ?F) Oral (!) 55 19 97 % -GENERAL: Alert AND oriented x 3. Cooperative. NADEYES: No scleral icterusSKIN: [place] in color. No jaundiceLUNGS: Expiratory wheezing bilateral lung manzano?CARDIAC: RRRABDOMEN: BS x 4. Abdomen obese but soft, lower abdominal tenderness whichshe attributes to ecchymosis, non distended, no palpable masses ororganomegaly. No guarding or rebound tenderness elicitedEXTREMITIES: No upper or lower extremity edemaMEDICATIONS:Current hospital medications:potassium chloride iv piggyback 20 mEq/100 mL 20 mEq INTRAVENOUS q 1 Hpsyllium Husk 1.56 g cap(s) 1.56 g ORAL DAILYlactobacillus rhamnosus 10 billion cell (CULTURELLE) capsule 1 capsuleORAL DAILYflecainide 100 mg tab(s) (TAMBOCOR) 100 mg ORAL q 12 Hdiltiazem CD 360 mg cap(s) (CARDIZEM CD, CARTIA XT) 360 mg ORAL DAILYpiperacillin-tazobact am 3.375 g in dextrose (iso-osmotic) 50 mL (ZOSYN)3.375 g INTRAVENOUS q 6 Hinsulin lispro 7 Units injection (rapid acting) (HumaLOG) 7 UnitsSUBCUTANEOUS w MEALSinsulin NPH human 14 Units injection (intermediate acting) (NovoLIN N,HumuLIN N) 14 Units SUBCUTANEOUS BIDapixaban 5 mg tab(s) (ELIQUIS) 5 mg ORAL BIDaspirin, enteric coated 81 mg tab(s) (ASPIRIN, ENTERIC COATED) 81 mg ORALDAILYhydrocortisone 25 mg suppository (HEMORRHOIDAL HC) 25 mg RECTAL q 12 HmethylPREDNISolone sod succinate(PF) 60 mg injection (Solu-MEDROL) 60 mgINTRAVENOUS q 12 Halbuterol 2.5 mg /3 mL (0.083 %) 2.5 mg (PROVENTIL) 2.5 mg INHALATION q 4H while awakealbuterol 2.5 mg /3 mL (0.083 %) 2.5 mg (PROVENTIL) 2.5 mg INHALATION q 2H PRNpantoprazole DR 40 mg tab(s) (PROTONIX) 40 mg ORAL BID AC (0600/1600)guaiFENesin 1,200 mg ER tab(s) (MUCINEX) 1,200 mg ORAL q 12 Hbudesonide 0.5 mg/2 mL 0.5 mg (PULMICORT) 0.5 mg INHALATION BIDmetHIMazole 5 mg tab(s) (TAPAZOLE) 5 mg ORAL DAILYmorphine 1-2 mg injection 1-2 mg INTRAVENOUS q 4 H PRNondansetron (PF) 4 mg injection (ZOFRAN) 4 mg INTRAVENOUS q 6 H PRN0.9% NaCl 10 mL 10 mL INTRAVENOUS q 12 H0.9% NaCl 20 mL 20 mL INTRAVENOUS PRNcodeine-guaiFENesin 5-10 mL oral liquid (ROBITUSSIN AC) 5-10 mL ORAL q 6 HPRNdextrose 40 % 15 g (INSTA-GLUCOSE) 15 g ORAL PRNglucagon 1 mg injection (GLUCAGEN) 1 mg INTRAMUSCULAR PRNdextrose 50% in water 25 mL syringe 12.5 g INTRAVENOUS PRNHYDROcodone 5 mg - acetaminophen 325 mg tablet (NORCO) 1-2 tablet ORAL q 6H PRNmontelukast 10 mg tab(s) (SINGULAIR) 10 mg ORAL AT BEDTIMEmagnesium oxide 400 mg tab(s) (MAG-OX) 400 mg ORAL DAILYspironolactone 25 mg tab(s) (ALDACTONE) 25 mg ORAL BIDhydroCHLOROthiazide 25 mg tab(s) (HYDRODIURIL, ESIDRIX) 25 mg ORAL DAILYiv contrast (radiology procedure) INTRAVENOUS DIRECTED PRNLABS:CBC, Coags, BMP, Mg, PhosRecent Labs 12/25/1704WBC 13.19* 13.16* 11.95*HB 12.3 12.4 12.0HCT 38.1 38.4 37.2PLT 193 212 206NA 132 132 129*K 3.1* 3.5 3.6CHLOR 91* 90* 89*CO2 27 26 26BUN 43* 51* 47*CREAT 1.22 1.41* 1.20GLUC 125* 158* 197*CA 8.5 9.0 8.9Liver Function, Amylase, AND LipaseRecent Labs 12/25/1704TPROT 5.5* 5.9* 5.9*ALB 3.2* 3.3* 3.4*ALT 62* 56* 45AST 22 28 17ALKPHOS 75 74 71TBILI 0.7 0.8 0.8RADIOLOGY?12/15/16 CT ChestIMPRESSION:1. ??Mild atelectasis within bilateral lungs. Otherwise, no acuteabnormality.2. Ovoid area of fat attenuation interposed between right and left atriaconsistent with lipomatous hypertrophy of interatrial septum.??12/23/16 KUBNegative. No retained stool is seen to suggest constipation.??MOST RECENT EGDRemote: hx gastritis at that time??MOST RECENT COLONOSCOPY: 01/09/2013. (MD Teja Whiting).Screening1. The perianal and digital rectal examinations were normal.2. The colon (entire examined portion) was moderately tortuous.3. The exam was otherwise without abnormality.4. Good bowel prepSIGNATURE: Vivian Martínez, CNSDATE: December 26, 2016TIME: 10:49 AM Normal [facility] CONSULT PROG HNO ID: [id number] thor: PARVIN Roldanervice: Infectious DiseaseAuthor Type: PhysicianType: Consult Progress NoteFiled: 12/27/2016 10:26 AMNote Text:INFECTIOUS DISEASE PROGRESS NOTEPatient Name: Laura Stark HISTORY:Still w cough and wheezing. No fevers. Leucocytosis marginally onsteroids. Still weak. No diarrhea. ROS checked in details. All qsanswered.Patient Active Hospital Problem List: Multinodular goiter (05/14/2011) Weakness (12/16/2016) Obesity, Class III, BMI >= 40 (morbid obesity) E66.01 (12/16/2016) Malnutrition of moderate degree (HCC) (12/16/2016) Asthma (12/23/2016) Hyperthyroidism (12/23/2016) Paroxysmal atrial fibrillation (HCC) (12/23/2016) CKD (chronic kidney disease) stage 3, GFR 30-59 ml/min (12/23/2016) Hypertension (12/23/2016) GERD (gastroesophageal reflux disease) (12/23/2016)ASSESSMENT:MRSA and E coli HCAP. [facility] in sputumButtock woundAcute respiratory failureFailed OP PO abx treatment w doxyWeaknessObesity, Class III, BMI >= 40Malnutrition of moderate degreeRECOMMENDATIONS:Cont inue zosynSupportive careWean P1Ipgdtmbyxj careMEDICATIONS: reviewed.Current hospital medications:morphine 1-2 mg injection 1-2 mg INTRAVENOUS q 4 H PRNmethylPREDNISolone sod succinate(PF) 40 mg injection (Solu-MEDROL) 40 mgINTRAVENOUS q 12 Hpsyllium Husk 1.56 g cap(s) 1.56 g ORAL DAILYlactobacillus rhamnosus 10 billion cell (CULTURELLE) capsule 1 capsuleORAL DAILYflecainide 100 mg tab(s) (TAMBOCOR) 100 mg ORAL q 12 Hdiltiazem CD 360 mg cap(s) (CARDIZEM CD, CARTIA XT) 360 mg ORAL DAILYpiperacillin-tazobact am 3.375 g in dextrose (iso-osmotic) 50 mL (ZOSYN)3.375 g INTRAVENOUS q 6 Hinsulin lispro 7 Units injection (rapid acting) (HumaLOG) 7 UnitsSUBCUTANEOUS w MEALSinsulin NPH human 14 Units injection (intermediate acting) (NovoLIN N,HumuLIN N) 14 Units SUBCUTANEOUS BIDapixaban 5 mg tab(s) (ELIQUIS) 5 mg ORAL BIDaspirin, enteric coated 81 mg tab(s) (ASPIRIN, ENTERIC COATED) 81 mg ORALDAILYhydrocortisone 25 mg suppository (HEMORRHOIDAL HC) 25 mg RECTAL q 12 Halbuterol 2.5 mg /3 mL (0.083 %) 2.5 mg (PROVENTIL) 2.5 mg INHALATION q 4H while awakealbuterol 2.5 mg /3 mL (0.083 %) 2.5 mg (PROVENTIL) 2.5 mg INHALATION q 2H PRNpantoprazole DR 40 mg tab(s) (PROTONIX) 40 mg ORAL BID AC (0600/1600)guaiFENesin 1,200 mg ER tab(s) (MUCINEX) 1,200 mg ORAL q 12 Hbudesonide 0.5 mg/2 mL 0.5 mg (PULMICORT) 0.5 mg INHALATION BIDmetHIMazole 5 mg tab(s) (TAPAZOLE) 5 mg ORAL DAILYondansetron (PF) 4 mg injection (ZOFRAN) 4 mg INTRAVENOUS q 6 H PRN0.9% NaCl 10 mL 10 mL INTRAVENOUS q 12 H0.9% NaCl 20 mL 20 mL INTRAVENOUS PRNcodeine-guaiFENesin 5-10 mL oral liquid (ROBITUSSIN AC) 5-10 mL ORAL q 6 HPRNdextrose 40 % 15 g (INSTA-GLUCOSE) 15 g ORAL PRNglucagon 1 mg injection (GLUCAGEN) 1 mg INTRAMUSCULAR PRNdextrose 50% in water 25 mL syringe 12.5 g INTRAVENOUS PRNHYDROcodone 5 mg - acetaminophen 325 mg tablet (NORCO) 1-2 tablet ORAL q 6H PRNmontelukast 10 mg tab(s) (SINGULAIR) 10 mg ORAL AT BEDTIMEmagnesium oxide 400 mg tab(s) (MAG-OX) 400 mg ORAL DAILYspironolactone 25 mg tab(s) (ALDACTONE) 25 mg ORAL BIDhydroCHLOROthiazide 25 mg tab(s) (HYDRODIURIL, ESIDRIX) 25 mg ORAL DAILYiv contrast (radiology procedure) INTRAVENOUS DIRECTED PRNPHYSICAL EXAM:Vital signs: BP 116/61 Pulse 70 Temp 37.1 ?C (98.8 ?F) (Oral) Resp20 Ht 157.5 cm (5' 2) Wt 104.8 kg (231 lb 0.7 oz) SpO2 96% BMI42.26 kg/m2Temp (24hrs), Av.8 ?C (98.2 ?F), Min:36.6 ?C (97.9 ?F), Max:37 ?C(98.6 ?F)General: alert, oriented, NADLungs: bilaterally coarse vesicular BSHeart: regular rate and rhythmAbdomen: soft, non tender, non distended, BS+Extremities: no edemaNo rashesNo joint inflammationNeck suppleLines okNo CVATLabs:Recent Labs 12/25/1707523WBC 13.16* 11.95* 16.49* --HB 12.4 12.0 12.7 --HCT 38.4 37.2 39.2 --PLT 212 206 236 --NA 132 129* -- 130*K 3.5 3.6 -- 4.0CHLOR 90* 89* -- 88*CO2 26 26 -- 24BUN 51* 47* -- 52*CREAT 1.41* 1.20 -- 1.41*Microbiology data: reviewedImaging data: Du Mcginnis [phone] Normal [facility] Comp Metabolic Panelon 12-26 Alanine aminotransferase (ALT) 62 U/L High 0-45 [facility] Comment on above: Performed By: #### C BCDIF, PT, PTT, CMP, MG1 ####[facility] [address] [place] [address] Albumin 3.2 g/dL Low 3.5-5.0 [facility] Comment on above: Performed By: #### C BCDIF, PT, PTT, CMP, MG1 ####[facility] [id number] [place] [address] Alkaline phosphatase (ALP) 75 U/L Normal 40-150 [facility] Comment on above: Performed By: #### C BCDIF, PT, PTT, CMP, MG1 ####[facility] [id number] [place] [address] Anion gap 14 mmol/L Normal 0-15 [facility] Comment on above: Performed By: #### C BCDIF, PT, PTT, CMP, MG1 ####[facility] [id number] [place] [address] Aspartate aminotransferase (AST) 22 U/L Normal 7-40 [facility] Comment on above: Performed By: #### C BCDIF, PT, PTT, CMP, MG1 ####[facility] [id number] [place] [place] [address] Bilirubin (total) 0.7 mg/dL Normal 0.0-1.5 [facility] Comment on above: Performed By: #### C BCDIF, PT, PTT, CMP, MG1 ####[facility] [address] [place] [address] Calcium 8.5 mg/dL Normal 8.5-10.5 [facility] Comment on above: Performed By: #### C BCDIF, PT, PTT, CMP, MG1 ####[facility] [address] [place] [address] Chloride 91 mmol/L Low 98-110 [facility] Comment on above: Performed By: #### C BCDIF, PT, PTT, CMP, MG1 ####[facility] [address] [place] [address] CO2 27 mmol/L Normal 23-32 [facility] Comment on above: Performed By: #### C BCDIF, PT, PTT, CMP, MG1 ####[facility] [address] [place] [address] Creatinine 1.22 mg/dL Normal 0.70-1.40 [facility] Comment on above: Performed By: #### C BCDIF, PT, PTT, CMP, MG1 ####[facility] [address] [place] [address] eGFR (non-black) 45 . Normal [facility] Comment on above: Result Comment: eGFR (Estimated GFR) Units of measure: mL/min/1.73 meters squaredeGFR is derived from the reexpressed MDRD Study equation using the following parameters: serum creatinine, age, gender and race. The creatinine assay has been calibrated to be traceable to IDMS.An eGFR <60 mL/min/1.73m2 for >3 months is consistent with chronic kidney disease. Refer to KDOQI guidelines for clinical interpretation.In patients with unstable renal function, e.g. those with acute kidney injury, the eGFR may not accurately reflect actual GFR. Performed By: #### C BCDIF, PT, PTT, CMP, MG1 ####[facility] [address] [place] [address] eGFR (non-black) 54 mL/min/{1.73_m2} Normal [facility] Comment on above: Performed By: #### C BCDIF, PT, PTT, CMP, MG1 ####[facility] [address] [place] [address] Glucose mass conc 125 mg/dL High 65-100 [facility] Comment on above: Performed By: #### C BCDIF, PT, PTT, CMP, MG1 ####[facility] [address] [place] [address] Potassium molar conc 3.1 mmol/L Low 3.5-5.0 [facility] Comment on above: Performed By: #### C BCDIF, PT, PTT, CMP, MG1 ####[facility] [address] [place] [phone] Protein 5.5 g/dL Low 6.0-8.4 [facility] Comment on above: Performed By: #### C BCDIF, PT, PTT, CMP, MG1 ####[facility] [phone] Sodium 132 mmol/L Normal 132-148 [facility] Comment on above: Performed By: #### C BCDIF, PT, PTT, CMP, MG1 ####[facility] Z[address]arpcar8356 [phone] Urea nitrogen 43 mg/dL High 8-25 [facility] Comment on above: Performed By: #### C BCDIF, PT, PTT, CMP, MG1 ####[facility] [address] [place] [phone] PROGRESSon 12-26-2016 PROGRESS HNO ID: [id number] thor: Janelle Hopkins: General Internal MedicineAuthor Type: PhysicianType: Progress NotesFiled: 12/26/2016 10:19 AMNote Text:INTERNAL MEDICINE PROGRESS NOTEADMITTING PHYSICIAN: Kiara Galloway COMPLAINT: improving cough and wheezing today, able to expectoratenow, no further bleeding,Current Facility-Administered Medications:potassium chloride iv piggyback 20 mEq/100 mL 20 mEq INTRAVENOUS q 1 Hpsyllium Husk 1.56 g cap(s) 1.56 g ORAL DAILYlactobacillus rhamnosus 10 billion cell (CULTURELLE) capsule 1 capsuleORAL DAILYflecainide 100 mg tab(s) (TAMBOCOR) 100 mg ORAL q 12 Hdiltiazem CD 360 mg cap(s) (CARDIZEM CD, CARTIA XT) 360 mg ORAL DAILYpiperacillin-tazobact am 3.375 g in dextrose (iso-osmotic) 50 mL (ZOSYN)3.375 g INTRAVENOUS q 6 Hinsulin lispro 7 Units injection (rapid acting) (HumaLOG) 7 UnitsSUBCUTANEOUS w MEALSinsulin NPH human 14 Units injection (intermediate acting) (NovoLIN N,HumuLIN N) 14 Units SUBCUTANEOUS BIDapixaban 5 mg tab(s) (ELIQUIS) 5 mg ORAL BIDaspirin, enteric coated 81 mg tab(s) (ASPIRIN, ENTERIC COATED) 81 mg ORALDAILYhydrocortisone 25 mg suppository (HEMORRHOIDAL HC) 25 mg RECTAL q 12 HmethylPREDNISolone sod succinate(PF) 60 mg injection (Solu-MEDROL) 60 mgINTRAVENOUS q 12 Halbuterol 2.5 mg /3 mL (0.083 %) 2.5 mg (PROVENTIL) 2.5 mg INHALATION q 4H while awakealbuterol 2.5 mg /3 mL (0.083 %) 2.5 mg (PROVENTIL) 2.5 mg INHALATION q 2H PRNpantoprazole DR 40 mg tab(s) (PROTONIX) 40 mg ORAL BID AC (0600/1600)guaiFENesin 1,200 mg ER tab(s) (MUCINEX) 1,200 mg ORAL q 12 Hbudesonide 0.5 mg/2 mL 0.5 mg (PULMICORT) 0.5 mg INHALATION BIDmetHIMazole 5 mg tab(s) (TAPAZOLE) 5 mg ORAL DAILYmorphine 1-2 mg injection 1-2 mg INTRAVENOUS q 4 H PRNondansetron (PF) 4 mg injection (ZOFRAN) 4 mg INTRAVENOUS q 6 H PRN0.9% NaCl 10 mL 10 mL INTRAVENOUS q 12 H0.9% NaCl 20 mL 20 mL INTRAVENOUS PRNcodeine-guaiFENesin 5-10 mL oral liquid (ROBITUSSIN AC) 5-10 mL ORAL q 6 HPRNdextrose 40 % 15 g (INSTA-GLUCOSE) 15 g ORAL PRNOrglucagon 1 mg injection (GLUCAGEN) 1 mg INTRAMUSCULAR PRNOrdextrose 50% in water 25 mL syringe 12.5 g INTRAVENOUS PRNHYDROcodone 5 mg - acetaminophen 325 mg tablet (NORCO) 1-2 tablet ORAL q 6H PRNmontelukast 10 mg tab(s) (SINGULAIR) 10 mg ORAL AT BEDTIMEmagnesium oxide 400 mg tab(s) (MAG-OX) 400 mg ORAL DAILYspironolactone 25 mg tab(s) (ALDACTONE) 25 mg ORAL BIDhydroCHLOROthiazide 25 mg tab(s) (HYDRODIURIL, ESIDRIX) 25 mg ORAL DAILYiv contrast (radiology procedure) INTRAVENOUS DIRECTED PRNINTERVAL HISTORY OF PRESENT ILLNESS: No n/v/d.No orthopnea, pnd,cpain, fever, chills.Consult notes reviewed.OBJECTIVEPHYSICAL EXAM:Blood pressure 107/56, pulse 105, temperature 36.3 ?C (97.3 ?F),temperature source Oral, resp. rate 18, height 157.5 cm (5' 2), buawma873.8 kg (228 lb 13.4 oz), SpO2 97 %.Body mass index is 41.85 kg/(m2).GENERAL: Morbidly Obese, Alert, no DistressNECK: SuppleLUNGS: decreased a/e, occ ronchi.CARDIAC: s1s2: regABDOMEN: Soft, nontenderEXTREMITIES: Extremities normal, no deformities, edema, clubbing or skindiscoloration. Good capillary refill.NEURO: Alert, oriented X 3, Gait normal. Non-focal. Reflexes normal andsymmetric. Sensation grossly intact.PULSES: 2+ radialDATA:Diagnostic tests reviewed for today's visit:Most recent labs and imaging results.ASSESSMENT/PLANAct aravind Problems: Acute Asthma exacerbation with HCAP? recent sputum cx with MRSA and E.coli: continue iv steroids and iv zosyn, Continue nebs. Noted Pulmonary eval.Continue codeine cough syrup, Weakness POA: Yes Assessment AND Plan: due to above. Obesity, Class III, BMI >= 40 (morbid obesity) E66.01 Assessment AND Plan: encourage wt. Loss. Hyperglycemia due to steroids: Continue basal and SSI.PAF:appreciate Endo eval for hyperthyroidism,Appreciate : Cardio eval.Diarrhea/ GI bleed;Appreciate GI,Resume ASA/Eliquis.Noted PT/OT eval.D/w ID.SIGNATURE: Janelle Lyons MD PATIENT NAME: Laura Stark PAGER/CONTACT #: Normal [facility] CBCon 12-25-2016 Erythrocyte distribution width Auto Ratio (RBC) 16.7 % High 11.5-15.0 [facility] Comment on above: Performed By: #### C BCDIF, PT, PTT, CMP, MG1 ####[facility] Iageohjaoc8305 [phone] Erythrocytes (RBC) 4.51 10*6/uL Normal 3.90-5.20 [facility] Comment on above: Performed By: #### C BCDIF, PT, PTT, CMP, MG1 ####[facility] [address] [place] [address] Hematocrit (HCT) 38.4 % Normal 36.0-46.0 [facility] Comment on above: Performed By: #### C BCDIF, PT, PTT, CMP, MG1 ####[facility] [address] [place] [address] Hemoglobin mass conc (Bld) 12.4 g/dL Normal 11.5-15.5 [facility] Comment on above: Performed By: #### C BCDIF, PT, PTT, CMP, MG1 ####[facility] [address] [place] [address] MCH 27.5 pG Normal 26.0-34.0 [facility] Comment on above: Performed By: #### C BCDIF, PT, PTT, CMP, MG1 ####[facility] [address] [place] [address] MCHC mass conc (RBC) 32.3 g/dL Normal 30.5-36.0 [facility] Comment on above: Performed By: #### C BCDIF, PT, PTT, CMP, MG1 ####[facility] [address] [place] [address] MCV 85.1 fL Normal 80.0-100.0 [facility] Comment on above: Performed By: #### C BCDIF, PT, PTT, CMP, MG1 ####[facility] [address] [place] [address] Platelet mean volume (PMV) 10.5 fL Normal 9.0-12.7 [facility] Comment on above: Performed By: #### C BCDIF, PT, PTT, CMP, MG1 ####[facility] [address] [place] [address] Platelets 212 10*3/uL Normal 150-400 [facility] Comment on above: Performed By: #### C BCDIF, PT, PTT, CMP, MG1 ####[facility] [address] [place] [address] WBC (Leukocytes) 13.16 10*3/uL High 3.70-11.00 [facility] Comment on above: Performed By: #### C BCDIF, PT, PTT, CMP, MG1 ####[facility] [address] [place] [phone] CONSULT PROGon 12-25-2016 CONSULT PROG HNO ID: [id number] thor: Nixon Acostae: Clinical CardiologyAuthor Type: PhysicianType: Consult Progress NoteFiled: 12/25/2016 3:43 PMNote Text:PROGRESS NOTE CARDIOLOGY SERVICESERVICE DATE: 12/25/2016SERVICE TIME: 3:36 PMSUBJECTIVEINTERIM HISTORY: her breathing is feeling a little betterCARDIAC STATUS:she has been having more afib recentlyOBJECTIVEPHYSICAL EXAM:Body mass index is 42.36 kg/(m2).O2 Therapy: Room AirNo Data RecordedPatient Vitals for the past 24 hrs: BP Temp Temp src Pulse Resp SpO2 Sdmiev36/11/17 1505 121/65 36.9 ?C (98.4 ?F) Oral 78 18 98 % -12/25/16 1228 - - - 118 - - -12/25/16 1222 - - - (!) 56 16 - -12/25/16 1212 - - - (!) 55 16 95 % -12/25/16 1155 105/70 37.1 ?C (98.8 ?F) Oral (!) 55 19 97 % -12/25/16 0757 120/62 36.3 ?C (97.4 ?F) Oral 84 20 99 % -12/25/16 0754 - - - 84 18 - -12/25/16 0744 - - - 83 18 96 % -12/25/16 0400 - - - - - - 105.1 kg (231 lb 9.6 oz)12/25/16 0331 140/73 36.5 ?C (97.7 ?F) Oral 79 19 99 % -12/24/16 2345 129/78 36.4 ?C (97.5 ?F) Oral 77 19 100 % -12/24/162029 - - - (!) 58 20 - -12/24/162015 - - - (!) 54 20 95 % -12/24/162013 127/63 36.6 ?C (97.9 ?F) Oral (!) 52 19 95 % -12/24/16 1936 - - - 114 - - -12/24/16 1653 116/56 37 ?C (98.6 ?F) Oral (!) 52 18 95 % -12/24/16 1600 - - - 62 16 - -12/24/16 1550 - - - (!) 57 16 97 % -Pleasant, comfortable, not in acute distress.Awake, alert, oriented times 3.Moves all extremities.SKIN: No rash or lumps.HEENT: Normocephalic, face symmetrical.NECK: Supple, no JVD, no carotid bruit, no thyromegaly.LUNGS: Clear to auscultation bilaterally.CARDIAC: Rhythm: irregularly irregular, Rate: tachycardia, No murmurABDOMEN: Soft, nontender, bowel sounds present.EXTREMITIES: No edema.PULSES: Peripheral pulses present.MEDICATIONS:[facility] medications:psyllium Husk 1.56 g cap(s) 1.56 g ORAL DAILYlactobacillus rhamnosus 10 billion cell (CULTURELLE) capsule 1 capsuleORAL DAILYflecainide 100 mg tab(s) (TAMBOCOR) 100 mg ORAL q 12 H[START ON 12/26/2016] diltiazem CD 360 mg cap(s) (CARDIZEM CD, CARTIA XT)360 mg ORAL DAILYpiperacillin-tazobact am 3.375 g in dextrose (iso-osmotic) 50 mL (ZOSYN)3.375 g INTRAVENOUS q 6 Hinsulin lispro 7 Units injection (rapid acting) (HumaLOG) 7 UnitsSUBCUTANEOUS w MEALSinsulin NPH human 14 Units injection (intermediate acting) (NovoLIN N,HumuLIN N) 14 Units SUBCUTANEOUS BIDapixaban 5 mg tab(s) (ELIQUIS) 5 mg ORAL BIDaspirin, enteric coated 81 mg tab(s) (ASPIRIN, ENTERIC COATED) 81 mg ORALDAILYhydrocortisone 25 mg suppository (HEMORRHOIDAL HC) 25 mg RECTAL q 12 HmethylPREDNISolone sod succinate(PF) 60 mg injection (Solu-MEDROL) 60 mgINTRAVENOUS q 12 Halbuterol 2.5 mg /3 mL (0.083 %) 2.5 mg (PROVENTIL) 2.5 mg INHALATION q 4H while awakealbuterol 2.5 mg /3 mL (0.083 %) 2.5 mg (PROVENTIL) 2.5 mg INHALATION q 2H PRNpantoprazole DR 40 mg tab(s) (PROTONIX) 40 mg ORAL BID AC (0600/1600)guaiFENesin 1,200 mg ER tab(s) (MUCINEX) 1,200 mg ORAL q 12 Hbudesonide 0.5 mg/2 mL 0.5 mg (PULMICORT) 0.5 mg INHALATION BIDmetHIMazole 5 mg tab(s) (TAPAZOLE) 5 mg ORAL DAILYmorphine 1-2 mg injection 1-2 mg INTRAVENOUS q 4 H PRNondansetron (PF) 4 mg injection (ZOFRAN) 4 mg INTRAVENOUS q 6 H PRN0.9% NaCl 10 mL 10 mL INTRAVENOUS q 12 H0.9% NaCl 20 mL 20 mL INTRAVENOUS PRNcodeine-guaiFENesin 5-10 mL oral liquid (ROBITUSSIN AC) 5-10 mL ORAL q 6 HPRNdextrose 40 % 15 g (INSTA-GLUCOSE) 15 g ORAL PRNglucagon 1 mg injection (GLUCAGEN) 1 mg INTRAMUSCULAR PRNdextrose 50% in water 25 mL syringe 12.5 g INTRAVENOUS PRNHYDROcodone 5 mg - acetaminophen 325 mg tablet (NORCO) 1-2 tablet ORAL q 6H PRNmontelukast 10 mg tab(s) (SINGULAIR) 10 mg ORAL AT BEDTIMEmagnesium oxide 400 mg tab(s) (MAG-OX) 400 mg ORAL DAILYspironolactone 25 mg tab(s) (ALDACTONE) 25 mg ORAL BIDhydroCHLOROthiazide 25 mg tab(s) (HYDRODIURIL, ESIDRIX) 25 mg ORAL DAILYiv contrast (radiology procedure) INTRAVENOUS DIRECTED PRNDATA:Diagnostic tests reviewed for today's visit:Most recent labsMost recent imagingMost recent EKGPast 72 Hour Labs:Recent Labs 12/25/871084FQB 13.16*RBC 4.51HB 12.4HCT 38.4MCV 85.1MCH 27.5MCHC 32.3RDWCV 16.7*PLT 212MPV 10.5GLUC 158*BUN 51*CREAT 1.41*NA 132K 3.5CHLOR 90*CO2 26TPROT 5.9*ALB 3.3*CA 9.0ALKPHOS 74TBILI 0.8AST 28ALT 56*Last Lab Drawn:TSH 0.242 12/18/2016ASSESSMENT/PLAN1. Persistent afib and atrial flutter with intermittent RVR2. Acute asthma exacerbation3. Hyperthyroidism4. CKD5. [facility] normal LV systolic function and normal nuclearstress [facility] has intermittent periods of tachycardia where her rate is not wellcontrolledPlan:Start flecainide 100 mg BIDStop digoxinincrease diltiazem to 300 mg dailyContinue methimazoleWill follow up tomorrowSIGNATURE: Nixon Burton MD PATIENT NAME: Laura StarkDATE: December 25, 2016 : 3:36 PM PAGER/CONTACT #: [phone] [facility] CONSULT PROG HNO ID: [id number] thor: Fern Gonzales: Pulmonary DiseaseAuthor Type: PhysicianType: Consult Progress NoteFiled: 12/25/2016 12:00 PMNote Text: RESPIRATORY INSTITUTEPULMONARY MEDICINEIN-PATIENT CONSULT PROGRESS NOTESERVICE DATE: 12/25/2016ASSESSMENT:Asthm a with acute exacerbationBilateral atelectasisRecent sputum (+) E coli and MRSA ([facility] - 12/06/16)Paroxysmal atrial fibrillation with RVR-now in sinus rythmRemote history of DVT/PEMorbid obesityRectal bleedingSuspected OSALeukocytosis, unspecified - likely secondary to steroids?RECOMMENDATIONS:C ontinue nebulized?albuterol scheduled and PRN.SoluMedrol 60 mg every 12 hours.Antibiotics as per ID - IV Zosyn.Mucinex 1200 mg every 12 hours.Pulmicort 0.5 nebulized BIDProtonix dose to 40 mg PO BIDBronchopulmonary hygiene - AcapellaCheck peak flows pre and post treatmentOccupational therapy evaluation and treatmentPlan discussed in detail with patient, RN and primary attending. Patientverbalizes understanding and is in agreement with the current managementplan.Total time spent in patient care includes but is not limited to patient/family discussions, collaborative discussions with other healthcareproviders, review of medical records, review of laboratory tests,radiology images/ results, microbiology and pathology data.Virgen Kowalski, [facility] #[id number] COMPLAINT: Shortness of breathINTERVAL HPI:Laura Stark is a 61 year old female status sinceprevious days visit is about the same. No fevers, chills, night sweats,chest pain, SOB, abd pain or leg swelling. No events over night. Peak altq371 ml today. No on supplemental oxygen.MEDICATIONS:Current Facility-Administered Medications:psyllium Husk 1.56 g cap(s) 1.56 g ORAL DAILYpiperacillin-tazobact am 3.375 g in dextrose (iso-osmotic) 50 mL (ZOSYN)3.375 g INTRAVENOUS q 6 Hinsulin lispro 7 Units injection (rapid acting) (HumaLOG) 7 UnitsSUBCUTANEOUS w MEALSinsulin NPH human 14 Units injection (intermediate acting) (NovoLIN N,HumuLIN N) 14 Units SUBCUTANEOUS BIDapixaban 5 mg tab(s) (ELIQUIS) 5 mg ORAL BIDaspirin, enteric coated 81 mg tab(s) (ASPIRIN, ENTERIC COATED) 81 mg ORALDAILYhydrocortisone 25 mg suppository (HEMORRHOIDAL HC) 25 mg RECTAL q 12 HmethylPREDNISolone sod succinate(PF) 60 mg injection (Solu-MEDROL) 60 mgINTRAVENOUS q 12 Halbuterol 2.5 mg /3 mL (0.083 %) 2.5 mg (PROVENTIL) 2.5 mg INHALATION q 4H while awakealbuterol 2.5 mg /3 mL (0.083 %) 2.5 mg (PROVENTIL) 2.5 mg INHALATION q 2H PRNpantoprazole DR 40 mg tab(s) (PROTONIX) 40 mg ORAL BID AC (0600/1600)guaiFENesin 1,200 mg ER tab(s) (MUCINEX) 1,200 mg ORAL q 12 Hbudesonide 0.5 mg/2 mL 0.5 mg (PULMICORT) 0.5 mg INHALATION BIDmetHIMazole 5 mg tab(s) (TAPAZOLE) 5 mg ORAL DAILYmorphine 1-2 mg injection 1-2 mg INTRAVENOUS q 4 H PRNdigoxin 0.25 mg tab(s) (LANOXIN) 0.25 mg ORAL DAILYdiltiazem CD 240 mg cap(s) (CARDIZEM CD, CARTIA XT) 240 mg ORAL DAILYondansetron (PF) 4 mg injection (ZOFRAN) 4 mg INTRAVENOUS q 6 H PRN0.9% NaCl 10 mL 10 mL INTRAVENOUS q 12 H0.9% NaCl 20 mL 20 mL INTRAVENOUS PRNcodeine-guaiFENesin 5-10 mL oral liquid (ROBITUSSIN AC) 5-10 mL ORAL q 6 HPRNdextrose 40 % 15 g (INSTA-GLUCOSE) 15 g ORAL PRNOrglucagon 1 mg injection (GLUCAGEN) 1 mg INTRAMUSCULAR PRNOrdextrose 50% in water 25 mL syringe 12.5 g INTRAVENOUS PRNHYDROcodone 5 mg - acetaminophen 325 mg tablet (NORCO) 1-2 tablet ORAL q 6H PRNmontelukast 10 mg tab(s) (SINGULAIR) 10 mg ORAL AT BEDTIMEmagnesium oxide 400 mg tab(s) (MAG-OX) 400 mg ORAL DAILYspironolactone 25 mg tab(s) (ALDACTONE) 25 mg ORAL BIDhydroCHLOROthiazide 25 mg tab(s) (HYDRODIURIL, ESIDRIX) 25 mg ORAL DAILYiv contrast (radiology procedure) INTRAVENOUS DIRECTED PRNCURRENT ALLERGIES:ALLERGIESAllerge n Reactions- Clindamycin Hives- Macrodantin [Nitrof* Other: See Comments Off-balance- Percocet [Oxycodone* Other: See Comments Nausea- Sulfa (Sulfonamide * Rash, Itching localized rash and itching all over- Zithromax [Azithrom* Rash, Itching localized rash and itching all over- Zenicef [Other] Rash, Itching itching in mouth; localized rash and itching all overPatient Vitals for the past 24 hrs: BP Temp Temp src Pulse Resp SpO2 Bawdhq67/11/17 1155 105/70 37.1 ?C (98.8 ?F) Oral (!) 55 19 97 % -12/25/16 0757 120/62 36.3 ?C (97.4 ?F) Oral 84 20 99 % -12/25/16 0754 - - - 84 18 - -12/25/16 0744 - - - 83 18 96 % -12/25/16 0400 - - - - - - 105.1 kg (231 lb 9.6 oz)12/25/16 0331 140/73 36.5 ?C (97.7 ?F) Oral 79 19 99 % -12/24/16 2345 129/78 36.4 ?C (97.5 ?F) Oral 77 19 100 % -12/24/162029 - - - (!) 58 20 - -12/24/162015 - - - (!) 54 20 95 % -12/24/162013 127/63 36.6 ?C (97.9 ?F) Oral (!) 52 19 95 % -12/24/16 1936 - - - 114 - - -12/24/16 1653 116/56 37 ?C (98.6 ?F) Oral (!) 52 18 95 % -12/24/16 1600 - - - 62 16 - -12/24/16 1550 - - - (!) 57 16 97 % -12/24/16 1225 134/64 - - 76 - - -12/24/16 1220 123/65 - - - - - -12/24/16 1212 - - - (!) 124 - - -Intake/Output Summary (Last 24 hours) at 12/25/16 1155Last data filed at 12/25/16 1000 Gross per 24 hourIntake 1970 mlOutput 1650 mlNet 320 mlOBJECTIVEPHYSICAL EXAM:BP 105/70 Pulse 55 Temp (Src) 98.8 (Oral) Resp 19 Ht 5' 2 (1.58m) Wt 231 lb 9.6 oz (105.1kg) SpO2 97% BMI 42.35 kg/(m2).General appearance: well appearing, alert, in no acute distressNose/Sinuses: NegativeOropharynx: Lips, mucosa, and tongue normal, teeth and gums normal,oropharynx normalRespiratory: Positive findings: wheezingCardiovascular: regular rate and rhythm, tachycardic, without murmur,gallop, or rubs. No ectopy, pulses are normal, no peripheral edemaAbdomen: Soft, non tender, non distended. Normal bowel sounds.Extremities: No deformities, no clubbingDATADiagnostic tests reviewed for today's visit, films/specimens werepersonally reviewed by me:Most recent labsCBC, Coags, BMP, Mg, PhosRecent Labs 12/25/1707 11/09/155974YGA 13.16* 11.95* 16.49* --HB 12.4 12.0 12.7 --HCT 38.4 37.2 39.2 --PLT 212 206 236 --NA 132 129* -- 130*K 3.5 3.6 -- 4.0CHLOR 90* 89* -- 88*CO2 26 26 -- 24BUN 51* 47* -- 52*CREAT 1.41* 1.20 -- 1.41*GLUC 158* 197* -- 221*CA 9.0 8.9 -- 9.1Liver Function, Amylase, AND LipaseRecent Labs 12/25/1707TPROT 5.9* 5.9* 6.1ALB 3.3* 3.4* 3.5ALT 56* 45 44AST 28 17 15ALKPHOS 74 71 71TBILI 0.8 0.8 0.6SIGNATURE: Fern Turcios MD PATIENT NAME: Laura StarkDATE: December 25, 2016 : 11:55 AM PAGER/CONTACT #: [phone] [facility] CONSULT PROG HNO ID: [id number] thor: Toma GoldbergbService: GastroenterologyAuthor Type: PhysicianType: Consult Progress NoteFiled: 12/25/2016 11:35 AMNote Text:GASTROENTEROLOGY CONSULT PROGRESS NOTEPatient Name: Laura StarkMRN: [id number] DATE: December 25, 2016SERVICE TIME: 10:25 AMASSESSMENT1. Rectal bleeding - suspect hemorrhoidal in the context of constipation2. Fecal leakage with constipation3. GERD4. Asthma exacerbation / PNA (MRSA and E.coli)5. New pAFIB (Eliquis) / Hyperthyroidism??PLAN- Continue Hemorrhoidal HC 25 mg DC twice daily- Will discontinue Miralax and use Psyllium 1 packet daily in attempts toavoid fecal leakage- Stool log- If rectal bleeding recurs then may need to consider colonoscopy butwould defer until pulmonary status improves- Continue Protonix 40 mg po twice daily- Regular diet- Mgmt of #4 per IM/pulmonology/ID. Mgmt of #5 percardiology/endocrinolog y?Patient seen and examined. Discussed with mid level provider. Starkey findingsconfirmed. Plan as outlined.Feeling slightly better. No further episodes of rectal bleeding. H/Hstable. Adjustment of bowel regimen as above.Toma Funk MDNovember 201611:35 AM INTE RVAL HPI: She continues to have frequent fecal leakage and is gettingfrustrated. Had a small, brown soft stool this am (2 stools yesterday -one soft and one loose). Continues to deny further rectal bleeding. Deniesabdominal pain. Some nausea this am again which she attributes to themedications she is on.PHYSICAL EXAM:Patient Vitals for the past 24 hrs: BP Temp Temp src Pulse Resp SpO2 Uglysp13/11/17 0757 120/62 36.3 ?C (97.4 ?F) Oral 84 20 99 % -12/25/16 0331 140/73 36.5 ?C (97.7 ?F) Oral 79 19 99 % -12/24/16 2345 129/78 36.4 ?C (97.5 ?F) Oral 77 19 100 % -12/24/16 2014 127/63 36.6 ?C (97.9 ?F) Oral (!) 52 19 95 % -12/24/16 1936 - - - 114 - - -12/24/16 1653 116/56 37 ?C (98.6 ?F) Oral (!) 52 18 95 % -GENERAL: Alert AND oriented x 3. Cooperative. NADEYES: No scleral icterusSKIN: [place] in color. No jaundiceLUNGS: Expiratory wheezing bilateral lung manzano?CARDIAC: RRRABDOMEN: BS x 4. Abdomen obese but soft, nontender, non distended, nopalpable masses or organomegaly. No guarding or rebound tendernesselicitedEXTREMIT IES: No upper or lower extremity edemaMEDICATIONS:Current hospital medications:piperacillin-t azobactam 3.375 g in dextrose (iso-osmotic) 50 mL (ZOSYN)3.375 g INTRAVENOUS q 6 Hinsulin lispro 7 Units injection (rapid acting) (HumaLOG) 7 UnitsSUBCUTANEOUS w MEALSinsulin NPH human 14 Units injection (intermediate acting) (NovoLIN N,HumuLIN N) 14 Units SUBCUTANEOUS BIDapixaban 5 mg tab(s) (ELIQUIS) 5 mg ORAL BIDaspirin, enteric coated 81 mg tab(s) (ASPIRIN, ENTERIC COATED) 81 mg ORALDAILYhydrocortisone 25 mg suppository (HEMORRHOIDAL HC) 25 mg RECTAL q 12 Hpolyethylene glycol 3350 17 g packet (MIRALAX, GLYCOLAX) 17 g ORAL BIDmethylPREDNISolone sod succinate(PF) 60 mg injection (Solu-MEDROL) 60 mgINTRAVENOUS q 12 Halbuterol 2.5 mg /3 mL (0.083 %) 2.5 mg (PROVENTIL) 2.5 mg INHALATION q 4H while awakealbuterol 2.5 mg /3 mL (0.083 %) 2.5 mg (PROVENTIL) 2.5 mg INHALATION q 2H PRNpantoprazole DR 40 mg tab(s) (PROTONIX) 40 mg ORAL BID AC (0600/1600)guaiFENesin 1,200 mg ER tab(s) (MUCINEX) 1,200 mg ORAL q 12 Hbudesonide 0.5 mg/2 mL 0.5 mg (PULMICORT) 0.5 mg INHALATION BIDmetHIMazole 5 mg tab(s) (TAPAZOLE) 5 mg ORAL DAILYmorphine 1-2 mg injection 1-2 mg INTRAVENOUS q 4 H PRNdigoxin 0.25 mg tab(s) (LANOXIN) 0.25 mg ORAL DAILYdiltiazem CD 240 mg cap(s) (CARDIZEM CD, CARTIA XT) 240 mg ORAL DAILYondansetron (PF) 4 mg injection (ZOFRAN) 4 mg INTRAVENOUS q 6 H PRN0.9% NaCl 10 mL 10 mL INTRAVENOUS q 12 H0.9% NaCl 20 mL 20 mL INTRAVENOUS PRNcodeine-guaiFENesin 5-10 mL oral liquid (ROBITUSSIN AC) 5-10 mL ORAL q 6 HPRNdextrose 40 % 15 g (INSTA-GLUCOSE) 15 g ORAL PRNglucagon 1 mg injection (GLUCAGEN) 1 mg INTRAMUSCULAR PRNdextrose 50% in water 25 mL syringe 12.5 g INTRAVENOUS PRNHYDROcodone 5 mg - acetaminophen 325 mg tablet (NORCO) 1-2 tablet ORAL q 6H PRNmontelukast 10 mg tab(s) (SINGULAIR) 10 mg ORAL AT BEDTIMEmagnesium oxide 400 mg tab(s) (MAG-OX) 400 mg ORAL DAILYspironolactone 25 mg tab(s) (ALDACTONE) 25 mg ORAL BIDhydroCHLOROthiazide 25 mg tab(s) (HYDRODIURIL, ESIDRIX) 25 mg ORAL DAILYiv contrast (radiology procedure) INTRAVENOUS DIRECTED PRNLABS:CBC, Coags, BMP, Mg, PhosRecent Labs 12/25/1707WBC 13.16* 11.95* 16.49* --HB 12.4 12.0 12.7 --HCT 38.4 37.2 39.2 --PLT 212 206 236 --NA 132 129* -- 130*K 3.5 3.6 -- 4.0CHLOR 90* 89* -- 88*CO2 26 26 -- 24BUN 51* 47* -- 52*CREAT 1.41* 1.20 -- 1.41*GLUC 158* 197* -- 221*CA 9.0 8.9 -- 9.1Liver Function, Amylase, AND LipaseRecent Labs 12/25/1707TPROT 5.9* 5.9* 6.1ALB 3.3* 3.4* 3.5ALT 56* 45 44AST 28 17 15ALKPHOS 74 71 71TBILI 0.8 0.8 0.6RADIOLOGY?12/15/16 CT ChestIMPRESSION:1. ??Mild atelectasis within bilateral lungs. Otherwise, no acuteabnormality.2. Ovoid area of fat attenuation interposed between right and left atriaconsistent with lipomatous hypertrophy of interatrial septum.?12/23/16 KUBNegative. No retained stool is seen to suggest constipation.?MOST RECENT EGDRemote: hx gastritis at that time??MOST RECENT COLONOSCOPY: 01/09/2013. (Peter Lerma MD - [place]).Screening1. The perianal and digital rectal examinations were normal.2. The colon (entire examined portion) was moderately tortuous.3. The exam was otherwise without abnormality.4. Good bowel prepSIGNATURE: Vivian Martínez CNSDATE: December 25, 2016TIME: 10:25 AM Normal [facility] CONSULT PROG HNO ID: [id number] thor: PARVIN Roldanervice: Infectious DiseaseAuthor Type: PhysicianType: Consult Progress NoteFiled: 12/26/2016 7:33 PMNote Text:INFECTIOUS DISEASE PROGRESS NOTEPatient Name: Laura Stark HISTORY:Hypoxic and needing 2L O2 at this time. Still w cough and wheezing. Nofevers. Leucocytosis marginally on steroids. Still weak. No diarrhea. ROSchecked in details. All qs answered.Patient Active Hospital Problem List: Multinodular goiter (05/14/2011) Weakness (12/16/2016) Obesity, Class III, BMI >= 40 (morbid obesity) E66.01 (12/16/2016) Malnutrition of moderate degree (HCC) (12/16/2016) Asthma (12/23/2016) Hyperthyroidism (12/23/2016) Paroxysmal atrial fibrillation (HCC) (12/23/2016) CKD (chronic kidney disease) stage 3, GFR 30-59 ml/min (12/23/2016) Hypertension (12/23/2016) GERD (gastroesophageal reflux disease) (12/23/2016)ASSESSMENT:MRSA and E coli HCAP. [place] [facility] in sputumButtock woundAcute respiratory failureFailed OP PO abx treatment w doxyWeaknessObesity, Class III, BMI >= 40Malnutrition of moderate degreeRECOMMENDATIONS:Star t zosynCall micro for MICs for the PsAWestern State Hospitalck PCTReviewed and discussed CXRVEST therapySupportive careWean H6Susltvfhlj careMEDICATIONS: reviewed.Current hospital medications:piperacillin-t azobactam 3.375 g in dextrose (iso-osmotic) 50 mL (ZOSYN)3.375 g INTRAVENOUS q 6 Hinsulin lispro 7 Units injection (rapid acting) (HumaLOG) 7 UnitsSUBCUTANEOUS w MEALSinsulin NPH human 14 Units injection (intermediate acting) (NovoLIN N,HumuLIN N) 14 Units SUBCUTANEOUS BIDapixaban 5 mg tab(s) (ELIQUIS) 5 mg ORAL BIDaspirin, enteric coated 81 mg tab(s) (ASPIRIN, ENTERIC COATED) 81 mg ORALDAILYhydrocortisone 25 mg suppository (HEMORRHOIDAL HC) 25 mg RECTAL q 12 Hpolyethylene glycol 3350 17 g packet (MIRALAX, GLYCOLAX) 17 g ORAL BIDmethylPREDNISolone sod succinate(PF) 60 mg injection (Solu-MEDROL) 60 mgINTRAVENOUS q 12 Halbuterol 2.5 mg /3 mL (0.083 %) 2.5 mg (PROVENTIL) 2.5 mg INHALATION q 4H while awakealbuterol 2.5 mg /3 mL (0.083 %) 2.5 mg (PROVENTIL) 2.5 mg INHALATION q 2H PRNpantoprazole DR 40 mg tab(s) (PROTONIX) 40 mg ORAL BID AC (0600/1600)guaiFENesin 1,200 mg ER tab(s) (MUCINEX) 1,200 mg ORAL q 12 Hbudesonide 0.5 mg/2 mL 0.5 mg (PULMICORT) 0.5 mg INHALATION BIDmetHIMazole 5 mg tab(s) (TAPAZOLE) 5 mg ORAL DAILYmorphine 1-2 mg injection 1-2 mg INTRAVENOUS q 4 H PRNdigoxin 0.25 mg tab(s) (LANOXIN) 0.25 mg ORAL DAILYdiltiazem CD 240 mg cap(s) (CARDIZEM CD, CARTIA XT) 240 mg ORAL DAILYondansetron (PF) 4 mg injection (ZOFRAN) 4 mg INTRAVENOUS q 6 H PRN0.9% NaCl 10 mL 10 mL INTRAVENOUS q 12 H0.9% NaCl 20 mL 20 mL INTRAVENOUS PRNcodeine-guaiFENesin 5-10 mL oral liquid (ROBITUSSIN AC) 5-10 mL ORAL q 6 HPRNdextrose 40 % 15 g (INSTA-GLUCOSE) 15 g ORAL PRNglucagon 1 mg injection (GLUCAGEN) 1 mg INTRAMUSCULAR PRNdextrose 50% in water 25 mL syringe 12.5 g INTRAVENOUS PRNHYDROcodone 5 mg - acetaminophen 325 mg tablet (NORCO) 1-2 tablet ORAL q 6H PRNmontelukast 10 mg tab(s) (SINGULAIR) 10 mg ORAL AT BEDTIMEmagnesium oxide 400 mg tab(s) (MAG-OX) 400 mg ORAL DAILYspironolactone 25 mg tab(s) (ALDACTONE) 25 mg ORAL BIDhydroCHLOROthiazide 25 mg tab(s) (HYDRODIURIL, ESIDRIX) 25 mg ORAL DAILYiv contrast (radiology procedure) INTRAVENOUS DIRECTED PRNPHYSICAL EXAM:Vital signs: BP 120/62 Pulse 84 Temp 36.3 ?C (97.4 ?F) (Oral) Resp20 Ht 157.5 cm (5' 2) Wt 105.1 kg (231 lb 9.6 oz) SpO2 99% BMI42.36 kg/m2Temp (24hrs), Av.8 ?C (98.2 ?F), Min:36.6 ?C (97.9 ?F), Max:37 ?C(98.6 ?F)General: alert, oriented, NADLungs: bilaterally coarse vesicular BSHeart: regular rate and rhythmAbdomen: soft, non tender, non distended, BS+Extremities: no edemaNo rashesNo joint inflammationNeck suppleLines okNo CVATLabs:Recent Labs 12/25/1707WBC 13.16* 11.95* 16.49* --HB 12.4 12.0 12.7 --HCT 38.4 37.2 39.2 --PLT 212 206 236 --NA 132 129* -- 130*K 3.5 3.6 -- 4.0CHLOR 90* 89* -- 88*CO2 26 26 -- 24BUN 51* 47* -- 52*CREAT 1.41* 1.20 -- 1.41*Microbiology data: reviewedImaging data: Du Mcginnis [id number]/25/20168: 46 AM Normal [facility] Comp Metabolic Panelon 12-25 Alanine aminotransferase (ALT) 56 U/L High 0-45 [facility] Comment on above: Performed By: #### C BCDIF, PT, PTT, CMP, MG1 ####[facility] [address] [place] [address] Albumin 3.3 g/dL Low 3.5-5.0 [facility] Comment on above: Performed By: #### C BCDIF, PT, PTT, CMP, MG1 ####[facility] [address] [place] [address] Alkaline phosphatase (ALP) 74 U/L Normal 40-150 [facility] Comment on above: Performed By: #### C BCDIF, PT, PTT, CMP, MG1 ####[place] [address] Anion gap 16 mmol/L High 0-15 [facility] Comment on above: Performed By: #### C BCDIF, PT, PTT, CMP, MG1 ####[place] [address] Aspartate aminotransferase (AST) 28 U/L Normal 7-40 [facility] Comment on above: Performed By: #### C BCDIF, PT, PTT, CMP, MG1 ####[place] [address] Bilirubin (total) 0.8 mg/dL Normal 0.0-1.5 [facility] Comment on above: Performed By: #### C BCDIF, PT, PTT, CMP, MG1 ####[place] [address] Calcium 9.0 mg/dL Normal 8.5-10.5 [facility] Comment on above: Performed By: #### C BCDIF, PT, PTT, CMP, MG1 ####[place] [address] Chloride 90 mmol/L Low 98-110 [facility] Comment on above: Performed By: #### C BCDIF, PT, PTT, CMP, MG1 ####[place] [address] CO2 26 mmol/L Normal 23-32 [facility] Comment on above: Performed By: #### C BCDIF, PT, PTT, CMP, MG1 ####[facility] [address] [place] [address] Creatinine 1.41 mg/dL High 0.70-1.40 [facility] Comment on above: Performed By: #### C BCDIF, PT, PTT, CMP, MG1 ####[facility] [address] [place] [address] eGFR (non-black) 46 mL/min/{1.73_m2} Normal [facility] Comment on above: Performed By: #### C BCDIF, PT, PTT, CMP, MG1 ####[facility] [address] [place] [address] eGFR (non-black) 38 . Normal [facility] Comment on above: Result Comment: eGFR (Estimated GFR) Units of measure: mL/min/1.73 meters squaredeGFR is derived from the reexpressed MDRD Study equation using the following parameters: serum creatinine, age, gender and race. The creatinine assay has been calibrated to be traceable to IDMS.An eGFR <60 mL/min/1.73m2 for >3 months is consistent with chronic kidney disease. Refer to KDOQI guidelines for clinical interpretation.In patients with unstable renal function, e.g. those with acute kidney injury, the eGFR may not accurately reflect actual GFR. Performed By: #### C BCDIF, PT, PTT, CMP, MG1 ####[facility] [address] [place] [address] Glucose mass conc 158 mg/dL High 65-100 [facility] Comment on above: Performed By: #### C BCDIF, PT, PTT, CMP, MG1 ####[facility] [address] [place] [address] Potassium molar conc 3.5 mmol/L Normal 3.5-5.0 [facility] Comment on above: Performed By: #### C BCDIF, PT, PTT, CMP, MG1 ####[facility] [address] [place] [address] Protein 5.9 g/dL Low 6.0-8.4 [facility] Comment on above: Performed By: #### C BCDIF, PT, PTT, CMP, MG1 ####[facility] [address] [place] [address] Sodium 132 mmol/L Normal 132-148 [facility] Comment on above: Performed By: #### C BCDIF, PT, PTT, CMP, MG1 ####[facility] [address]38[address] [phone] Urea nitrogen 51 mg/dL High 10-08 [facility] Comment on above: Performed By: #### C BCDIF, PT, PTT, CMP, MG1 ####[facility] [address]42[address] [phone] PROGRESSon 12-25-2016 PROGRESS HNO ID: [id number] thor: Janelle Hopkins: General Internal MedicineAuthor Type: PhysicianType: Progress NotesFiled: 12/25/2016 6:39 PMNote Text:INTERNAL MEDICINE PROGRESS NOTEADMITTING PHYSICIAN: Kiara Galloway COMPLAINT: improving cough and wheezing today, able to expectoratenow, no further bleeding,Current Facility-Administered Medications:psyllium Husk 1.56 g cap(s) 1.56 g ORAL DAILYlactobacillus rhamnosus 10 billion cell (CULTURELLE) capsule 1 capsuleORAL DAILYflecainide 100 mg tab(s) (TAMBOCOR) 100 mg ORAL q 12 Hpiperacillin-tazobactam 3.375 g in dextrose (iso-osmotic) 50 mL (ZOSYN)3.375 g INTRAVENOUS q 6 Hinsulin lispro 7 Units injection (rapid acting) (HumaLOG) 7 UnitsSUBCUTANEOUS w MEALSinsulin NPH human 14 Units injection (intermediate acting) (NovoLIN N,HumuLIN N) 14 Units SUBCUTANEOUS BIDapixaban 5 mg tab(s) (ELIQUIS) 5 mg ORAL BIDaspirin, enteric coated 81 mg tab(s) (ASPIRIN, ENTERIC COATED) 81 mg ORALDAILYhydrocortisone 25 mg suppository (HEMORRHOIDAL HC) 25 mg RECTAL q 12 HmethylPREDNISolone sod succinate(PF) 60 mg injection (Solu-MEDROL) 60 mgINTRAVENOUS q 12 Halbuterol 2.5 mg /3 mL (0.083 %) 2.5 mg (PROVENTIL) 2.5 mg INHALATION q 4H while awakealbuterol 2.5 mg /3 mL (0.083 %) 2.5 mg (PROVENTIL) 2.5 mg INHALATION q 2H PRNpantoprazole DR 40 mg tab(s) (PROTONIX) 40 mg ORAL BID AC (0600/1600)guaiFENesin 1,200 mg ER tab(s) (MUCINEX) 1,200 mg ORAL q 12 Hbudesonide 0.5 mg/2 mL 0.5 mg (PULMICORT) 0.5 mg INHALATION BIDmetHIMazole 5 mg tab(s) (TAPAZOLE) 5 mg ORAL DAILYmorphine 1-2 mg injection 1-2 mg INTRAVENOUS q 4 H PRNondansetron (PF) 4 mg injection (ZOFRAN) 4 mg INTRAVENOUS q 6 H PRN0.9% NaCl 10 mL 10 mL INTRAVENOUS q 12 H0.9% NaCl 20 mL 20 mL INTRAVENOUS PRNcodeine-guaiFENesin 5-10 mL oral liquid (ROBITUSSIN AC) 5-10 mL ORAL q 6 HPRNdextrose 40 % 15 g (INSTA-GLUCOSE) 15 g ORAL PRNOrglucagon 1 mg injection (GLUCAGEN) 1 mg INTRAMUSCULAR PRNOrdextrose 50% in water 25 mL syringe 12.5 g INTRAVENOUS PRNHYDROcodone 5 mg - acetaminophen 325 mg tablet (NORCO) 1-2 tablet ORAL q 6H PRNmontelukast 10 mg tab(s) (SINGULAIR) 10 mg ORAL AT BEDTIMEmagnesium oxide 400 mg tab(s) (MAG-OX) 400 mg ORAL DAILYspironolactone 25 mg tab(s) (ALDACTONE) 25 mg ORAL BIDhydroCHLOROthiazide 25 mg tab(s) (HYDRODIURIL, ESIDRIX) 25 mg ORAL DAILYiv contrast (radiology procedure) INTRAVENOUS DIRECTED PRNINTERVAL HISTORY OF PRESENT ILLNESS: No n/v/d.No orthopnea, pnd,cpain, fever, chills.Consult notes reviewed.OBJECTIVEPHYSICAL EXAM:Blood pressure 121/65, pulse 78, temperature 36.9 ?C (98.4 ?F),temperature source Oral, resp. rate 18, height 157.5 cm (5' 2), .1 kg (231 lb 9.6 oz), SpO2 98 %.Body mass index is 42.36 kg/(m2).GENERAL: Morbidly Obese, Alert, no DistressNECK: SuppleLUNGS: decreased a/e, occ ronchi.CARDIAC: s1s2: regABDOMEN: Soft, nontenderEXTREMITIES: Extremities normal, no deformities, edema, clubbing or skindiscoloration. Good capillary refill.NEURO: Alert, oriented X 3, Gait normal. Non-focal. Reflexes normal andsymmetric. Sensation grossly intact.PULSES: 2+ radialDATA:Diagnostic tests reviewed for today's visit:Most recent labs and imaging results.ASSESSMENT/PLANAct aravind Problems: Acute Asthma exacerbation with HCAP? recent sputum cx with MRSA and E.coli: continue iv steroids and iv zosyn, Continue nebs. Noted Pulmonary eval.Continue codeine cough syrup, Weakness POA: Yes Assessment AND Plan: due to above. Obesity, Class III, BMI >= 40 (morbid obesity) E66.01 Assessment AND Plan: encourage wt. Loss. Hyperglycemia due to steroids: Continue basal and SSI.PAF:appreciate Endo eval for hyperthyroidism,Appreciate : Cardio eval.Diarrhea/ GI bleed;Appreciate GI,Resume ASA/Eliquis.Noted PT/OT eval.D/w ID.SIGNATURE: Janelle Lyons MD PATIENT NAME: Laura Stark PAGER/CONTACT #: Normal [facility] CBCon 12-24-2016 Erythrocyte distribution width Auto Ratio (RBC) 16.7 % High 11.5-15.0 [facility] Comment on above: Performed By: #### C BCDIF, PT, PTT, CMP, MG1 ####[facility] [address] Erythrocytes (RBC) 4.39 10*6/uL Normal 3.90-5.20 [facility] Comment on above: Performed By: #### C BCDIF, PT, PTT, CMP, MG1 ####[facility] [address] [place] [phone] Hematocrit (HCT) 37.2 % Normal 36.0-46.0 [facility] Comment on above: Performed By: #### C BCDIF, PT, PTT, CMP, MG1 ####[facility] [address] [place] [phone] Hemoglobin mass conc (Bld) 12.0 g/dL Normal 11.5-15.5 [facility] Comment on above: Performed By: #### C BCDIF, PT, PTT, CMP, MG1 ####[facility] [address] [place] [address] MCH 27.3 pG Normal 26.0-34.0 [facility] Comment on above: Performed By: #### C BCDIF, PT, PTT, CMP, MG1 ####[facility] [address] [place] [address] MCHC mass conc (RBC) 32.3 g/dL Normal 30.5-36.0 [facility] Comment on above: Performed By: #### C BCDIF, PT, PTT, CMP, MG1 ####[facility] [address] [place] [address] MCV 84.7 fL Normal 80.0-100.0 [facility] Comment on above: Performed By: #### C BCDIF, PT, PTT, CMP, MG1 ####[facility] [address] [place] [address] Platelet mean volume (PMV) 10.1 fL Normal 9.0-12.7 [facility] Comment on above: Performed By: #### C BCDIF, PT, PTT, CMP, MG1 ####[facility] [address] [place] [address] Platelets 206 10*3/uL Normal 150-400 [facility] Comment on above: Performed By: #### C BCDIF, PT, PTT, CMP, MG1 ####[facility] [address] [place] [address] WBC (Leukocytes) 11.95 10*3/uL High 3.70-11.00 [facility] Comment on above: Performed By: #### C BCDIF, PT, PTT, CMP, MG1 ####[facility] [address] [place] [address] CONSULT PROGon 12-24-2016 CONSULT PROG HNO ID: [id number] thor: Toma GoldbergbService: GastroenterologyAuthor Type: PhysicianType: Consult Progress NoteFiled: 12/24/2016 1:44 PMNote Text:GASTROENTEROLOGY CONSULT PROGRESS NOTEPatient Name: Laura StarkMRN: [id number] DATE: December 24, 2016SERVICE TIME: 12:28 PMASSESSMENT1. Rectal bleeding - suspect hemorrhoidal in the context of constipation2. Fecal leakage with constipation3. GERD4. Asthma exacerbation / PNA (MRSA and E.coli)5. New pAFIB / Hyperthyroidism?PLAN- Continue Hemorrhoidal HC 25 mg DC twice daily- Continue Miralax 17 g twice daily. May consider addition of psyllium- If rectal bleeding recurs then may need to consider colonoscopy butwould defer until pulmonary status improves- Eliquis, aspirin on hold. May resume from GI perspective- Continue Protonix 40 mg po twice daily- Regular diet- Mgmt of #4 per IM/pulmonology/ID. Mgmt of #5 percardiology/endocrinolog yPatient seen and examined. Discussed with mid level provider. Starkey findingsconfirmed. Plan as outlined.Still feeling SOB. Denies abd pain. Just had BM with RN at bedside withstool mixed with urine without evidence of bleeding. H/H normal.Continue conservative tx.Toma Funk MDNovember :43 PM INTE RVAL HPI: She continues to have frequent fecal leakage. Fecalincontinence was precipitated by episodes of diarrhea after laxativeadministration for constipation. No further rectal bleeding. Deniesabdominal pain. No melena. Had some nausea today without vomiting. KUBfrom yesterday without evidence of fecal impaction or retained stool tosuggest overflow diarrhea.PHYSICAL EXAM:Patient Vitals for the past 24 hrs: BP Temp Temp src Pulse Resp WyW87812/24/16 1144 (!) 133/32 36.9 ?C (98.4 ?F) Oral (!) 51 20 98 %12/24/16 1017 132/85 36.6 ?C (97.9 ?F) Oral (!) 158 24 98 %12/24/16 0844 137/64 37 ?C (98.6 ?F) Oral 69 18 96 %12/24/16 0449 124/69 36.6 ?C (97.9 ?F) Oral 98 16 96 %12/24/16 0029 159/50 36.7 ?C (98 ?F) Oral 87 18 97 %12/23/162014 141/80 36.8 ?C (98.2 ?F) Temporal Art 84 17 96 %12/23/16 1532 136/64 36.7 ?C (98.1 ?F) Oral 82 18 95 %GENERAL: Alert AND oriented x 3. Cooperative. NADEYES: No scleral icterusSKIN: [place] in color. No jaundiceLUNGS: Expiratory wheezing bilateral lung fieldsCARDIAC: RRRABDOMEN: BS x 4. Abdomen obese but soft, nontender, non distended, nopalpable masses or organomegaly. No guarding or rebound tendernesselicitedEXTREMIT IES: No upper or lower extremity edemaMEDICATIONS:Current hospital medications:piperacillin-t azobactam 3.375 g in dextrose (iso-osmotic) 50 mL (ZOSYN)3.375 g INTRAVENOUS q 6 Hinsulin lispro 7 Units injection (rapid acting) (HumaLOG) 7 UnitsSUBCUTANEOUS w MEALSinsulin NPH human 14 Units injection (intermediate acting) (NovoLIN N,HumuLIN N) 14 Units SUBCUTANEOUS BIDhydrocortisone 25 mg suppository (HEMORRHOIDAL HC) 25 mg RECTAL q 12 Hpolyethylene glycol 3350 17 g packet (MIRALAX, GLYCOLAX) 17 g ORAL BIDmethylPREDNISolone sod succinate(PF) 60 mg injection (Solu-MEDROL) 60 mgINTRAVENOUS q 12 Halbuterol 2.5 mg /3 mL (0.083 %) 2.5 mg (PROVENTIL) 2.5 mg INHALATION q 4H while awakealbuterol 2.5 mg /3 mL (0.083 %) 2.5 mg (PROVENTIL) 2.5 mg INHALATION q 2H PRNpantoprazole DR 40 mg tab(s) (PROTONIX) 40 mg ORAL BID AC (0600/1600)guaiFENesin 1,200 mg ER tab(s) (MUCINEX) 1,200 mg ORAL q 12 Hbudesonide 0.5 mg/2 mL 0.5 mg (PULMICORT) 0.5 mg INHALATION BIDmetHIMazole 5 mg tab(s) (TAPAZOLE) 5 mg ORAL DAILYmorphine 1-2 mg injection 1-2 mg INTRAVENOUS q 4 H PRNdigoxin 0.25 mg tab(s) (LANOXIN) 0.25 mg ORAL DAILYdiltiazem CD 240 mg cap(s) (CARDIZEM CD, CARTIA XT) 240 mg ORAL DAILYondansetron (PF) 4 mg injection (ZOFRAN) 4 mg INTRAVENOUS q 6 H PRN0.9% NaCl 10 mL 10 mL INTRAVENOUS q 12 H0.9% NaCl 20 mL 20 mL INTRAVENOUS PRNcodeine-guaiFENesin 5-10 mL oral liquid (ROBITUSSIN AC) 5-10 mL ORAL q 6 HPRNdextrose 40 % 15 g (INSTA-GLUCOSE) 15 g ORAL PRNglucagon 1 mg injection (GLUCAGEN) 1 mg INTRAMUSCULAR PRNdextrose 50% in water 25 mL syringe 12.5 g INTRAVENOUS PRNHYDROcodone 5 mg - acetaminophen 325 mg tablet (NORCO) 1-2 tablet ORAL q 6H PRNmontelukast 10 mg tab(s) (SINGULAIR) 10 mg ORAL AT BEDTIMEmagnesium oxide 400 mg tab(s) (MAG-OX) 400 mg ORAL DAILYspironolactone 25 mg tab(s) (ALDACTONE) 25 mg ORAL BIDhydroCHLOROthiazide 25 mg tab(s) (HYDRODIURIL, ESIDRIX) 25 mg ORAL DAILYiv contrast (radiology procedure) INTRAVENOUS DIRECTED PRNLABS:CBC, Coags, BMP, Mg, PhosRecent Labs 12/23/1708WBC 11.95* 16.49* -- --HB 12.0 12.7 -- --HCT 37.2 39.2 -- --PLT 206 236 -- --NA 129* -- 130* 131*K 3.6 -- 4.0 4.0CHLOR 89* -- 88* 89*CO2 26 -- 24 27BUN 47* -- 52* 52*CREAT 1.20 -- 1.41* 1.48*GLUC 197* -- 221* 207*CA 8.9 -- 9.1 9.4Liver Function, Amylase, AND LipaseRecent Labs 12/23/1704TPROT 5.9* 6.1 6.3ALB 3.4* 3.5 3.7ALT 45 44 44AST 17 15 15ALKPHOS 71 71 78TBILI 0.8 0.6 [address].1AQEYLHLBO99/1/17 CT ChestIMPRESSION:1. ? Mild atelectasis within bilateral lungs. Otherwise, no acuteabnormality.2. Ovoid area of fat attenuation interposed between right and left atriaconsistent with lipomatous hypertrophy of interatrial septum.12/23/16 KUBNegative. No retained stool is seen to suggest constipation.MOST RECENT EGDRemote: hx gastritis at that time?MOST RECENT COLONOSCOPY: 01/09/2013. (Peter Lerma MD - [place]).Screening1. The perianal and digital rectal examinations were normal.2. The colon (entire examined portion) was moderately tortuous.3. The exam was otherwise without abnormality.4. Good bowel prepSIGNATURE: Vivian Martínez, CNSDATE: December 24, 2016TIME: 12:28 PM [facility] CONSULT PROG HNO ID: [id number] thor: PARVIN Roldanervice: Infectious DiseaseAuthor Type: PhysicianType: Consult Progress NoteFiled: 12/24/2016 12:26 PMNote Text:INFECTIOUS DISEASE PROGRESS NOTEPatient Name: Laura Stark HISTORY:Hypoxic and needing 2L O2 at this time. Still w cough and wheezing. Nofevers. Leucocytosis marginally on steroids. Still weak. No diarrhea. ROSchecked in details. All qs answered.Patient Active Hospital Problem List: Multinodular goiter (05/14/2011) Weakness (12/16/2016) Obesity, Class III, BMI >= 40 (morbid obesity) E66.01 (12/16/2016) Malnutrition of moderate degree (HCC) (12/16/2016) Asthma (12/23/2016) Hyperthyroidism (12/23/2016) Paroxysmal atrial fibrillation (HCC) (12/23/2016) CKD (chronic kidney disease) stage 3, GFR 30-59 ml/min (12/23/2016) Hypertension (12/23/2016) GERD (gastroesophageal reflux disease) (12/23/2016)ASSESSMENT:MRSA and E coli HCAP. [facility]AG in sputumButtock woundAcute respiratory failureFailed OP PO abx treatment w doxyWeaknessObesity, Class III, BMI >= 40Malnutrition of moderate degreeRECOMMENDATIONS:Aneudy gutierrezsyNoel micro for MICs for the [facility] PCTReviewed and discussed CXRVEST therapySupportive careWean Z6Vowplljjsh careMEDICATIONS: reviewed.Current hospital medications:hydrocortisone 25 mg suppository (HEMORRHOIDAL HC) 25 mg RECTAL q 12 Hpolyethylene glycol 3350 17 g packet (MIRALAX, GLYCOLAX) 17 g ORAL BIDinsulin NPH human 11 Units injection (intermediate acting) (NovoLIN N,HumuLIN N) 11 Units SUBCUTANEOUS BIDinsulin lispro 4 Units injection (rapid acting) (HumaLOG) 4 UnitsSUBCUTANEOUS w MEALSmethylPREDNISolone sod succinate(PF) 60 mg injection (Solu-MEDROL) 60 mgINTRAVENOUS q 12 Halbuterol 2.5 mg /3 mL (0.083 %) 2.5 mg (PROVENTIL) 2.5 mg INHALATION q 4H while awakealbuterol 2.5 mg /3 mL (0.083 %) 2.5 mg (PROVENTIL) 2.5 mg INHALATION q 2H PRNpantoprazole DR 40 mg tab(s) (PROTONIX) 40 mg ORAL BID AC (0600/1600)guaiFENesin 1,200 mg ER tab(s) (MUCINEX) 1,200 mg ORAL q 12 Hbudesonide 0.5 mg/2 mL 0.5 mg (PULMICORT) 0.5 mg INHALATION BIDmetHIMazole 5 mg tab(s) (TAPAZOLE) 5 mg ORAL DAILYmorphine 1-2 mg injection 1-2 mg INTRAVENOUS q 4 H PRNdigoxin 0.25 mg tab(s) (LANOXIN) 0.25 mg ORAL DAILYdiltiazem CD 240 mg cap(s) (CARDIZEM CD, CARTIA XT) 240 mg ORAL DAILYondansetron (PF) 4 mg injection (ZOFRAN) 4 mg INTRAVENOUS q 6 H PRN0.9% NaCl 10 mL 10 mL INTRAVENOUS q 12 H0.9% NaCl 20 mL 20 mL INTRAVENOUS PRNcodeine-guaiFENesin 5-10 mL oral liquid (ROBITUSSIN AC) 5-10 mL ORAL q 6 HPRNdextrose 40 % 15 g (INSTA-GLUCOSE) 15 g ORAL PRNglucagon 1 mg injection (GLUCAGEN) 1 mg INTRAMUSCULAR PRNdextrose 50% in water 25 mL syringe 12.5 g INTRAVENOUS PRNHYDROcodone 5 mg - acetaminophen 325 mg tablet (NORCO) 1-2 tablet ORAL q 6H PRNmontelukast 10 mg tab(s) (SINGULAIR) 10 mg ORAL AT BEDTIMEmagnesium oxide 400 mg tab(s) (MAG-OX) 400 mg ORAL DAILYspironolactone 25 mg tab(s) (ALDACTONE) 25 mg ORAL BIDhydroCHLOROthiazide 25 mg tab(s) (HYDRODIURIL, ESIDRIX) 25 mg ORAL DAILYiv contrast (radiology procedure) INTRAVENOUS DIRECTED PRNPHYSICAL EXAM:Vital signs: BP 132/85 Pulse 91 Temp 36.6 ?C (97.9 ?F) (Oral) Resp20 Ht 157.5 cm (5' 2) Wt 102.7 kg (226 lb 6.4 oz) SpO2 97% BMI41.41 kg/m2Temp (24hrs), Av.8 ?C (98.2 ?F), Min:36.6 ?C (97.9 ?F), Max:37 ?C(98.6 ?F)General: alert, oriented, NADLungs: bilaterally coarse vesicular BSHeart: regular rate and rhythmAbdomen: soft, non tender, non distended, BS+Extremities: no edemaNo rashesNo joint inflammationNeck suppleLines okNo CVATLabs:Recent Labs 12/23/1708428WBC 11.95* 16.49* -- --HB 12.0 12.7 -- --HCT 37.2 39.2 -- --PLT 206 236 -- --NA 129* -- 130* 131*K 3.6 -- 4.0 4.0CHLOR 89* -- 88* 89*CO2 26 -- 24 27BUN 47* -- 52* 52*CREAT 1.20 -- 1.41* 1.48*Microbiology data: reviewedImaging data: Du Mcginnis [id number]/24/201610 :55 AM [facility] CONSULT PROG HNO ID: [id number] thor: Jaya Darby RaiService: Pulmonary DiseaseAuthor Type: PhysicianType: Consult Progress NoteFiled: 12/24/2016 2:02 PMNote Text: RESPIRATORY INSTITUTEPULMONARY MEDICINEIN-PATIENT CONSULT PROGRESS NOTESERVICE DATE: 12/24/2016ASSESSMENT:Asthm a with acute exacerbationBilateral atelectasisRecent sputum (+) E coli and MRSA ([facility] - 12/06/16)Paroxysmal atrial fibrillation with RVRRemote history of DVT/PEMorbid obesityRectal bleedingSuspected OSALeukocytosis, unspecified - likely secondary to steroidsRECOMMENDATIONS:Co ntinue nebulized albuterol scheduled and PRN.SoluMedrol 60 mg every 12 hours.Antibiotics as per ID - IV Zosyn.Mucinex 1200 mg every 12 hours.Pulmicort 0.5 nebulized BIDProtonix dose to 40 mg PO BIDBronchopulmonary hygiene - AcapellaCheck peak flows pre and post treatmentOccupational therapy evaluation and treatmentPlan discussed in detail with patient, RN and primary attending. Patientverbalizes understanding and is in agreement with the current managementplan.Total time spent in patient care includes but is not limited to patient/family discussions, collaborative discussions with other healthcareproviders, review of medical records, review of laboratory tests,radiology images/ results, microbiology and pathology data.Virgen Voss Rai, Respiratory InstituteThe Bellevue HospitalPager #[phone] COMPLAINT: Shortness of breathINTERVAL HPI:Laura Stark is a 61 year old female status sinceprevious days visit is feeling about the same. Noted to have rectalbleeding yesterday and seen by gastroenterology?determine to behemorrhoidal. No fevers, chills, night sweats, chest pain, worsening SOB,abd pain or leg swellingMEDICATIONS:Hermilo briscoe Facility-Administered Medications:hydrocortisone 25 mg suppository (HEMORRHOIDAL HC) 25 mg RECTAL q 12 Hpolyethylene glycol 3350 17 g packet (MIRALAX, GLYCOLAX) 17 g ORAL BIDinsulin NPH human 11 Units injection (intermediate acting) (NovoLIN N,HumuLIN N) 11 Units SUBCUTANEOUS BIDinsulin lispro 4 Units injection (rapid acting) (HumaLOG) 4 UnitsSUBCUTANEOUS w MEALSmethylPREDNISolone sod succinate(PF) 60 mg injection (Solu-MEDROL) 60 mgINTRAVENOUS q 12 Halbuterol 2.5 mg /3 mL (0.083 %) 2.5 mg (PROVENTIL) 2.5 mg INHALATION q 4H while awakealbuterol 2.5 mg /3 mL (0.083 %) 2.5 mg (PROVENTIL) 2.5 mg INHALATION q 2H PRNpantoprazole DR 40 mg tab(s) (PROTONIX) 40 mg ORAL BID AC (0600/1600)guaiFENesin 1,200 mg ER tab(s) (MUCINEX) 1,200 mg ORAL q 12 Hbudesonide 0.5 mg/2 mL 0.5 mg (PULMICORT) 0.5 mg INHALATION BIDmetHIMazole 5 mg tab(s) (TAPAZOLE) 5 mg ORAL DAILYmorphine 1-2 mg injection 1-2 mg INTRAVENOUS q 4 H PRNdigoxin 0.25 mg tab(s) (LANOXIN) 0.25 mg ORAL DAILYdiltiazem CD 240 mg cap(s) (CARDIZEM CD, CARTIA XT) 240 mg ORAL DAILYondansetron (PF) 4 mg injection (ZOFRAN) 4 mg INTRAVENOUS q 6 H PRN0.9% NaCl 10 mL 10 mL INTRAVENOUS q 12 H0.9% NaCl 20 mL 20 mL INTRAVENOUS PRNcodeine-guaiFENesin 5-10 mL oral liquid (ROBITUSSIN AC) 5-10 mL ORAL q 6 HPRNdextrose 40 % 15 g (INSTA-GLUCOSE) 15 g ORAL PRNOrglucagon 1 mg injection (GLUCAGEN) 1 mg INTRAMUSCULAR PRNOrdextrose 50% in water 25 mL syringe 12.5 g INTRAVENOUS PRNHYDROcodone 5 mg - acetaminophen 325 mg tablet (NORCO) 1-2 tablet ORAL q 6H PRNmontelukast 10 mg tab(s) (SINGULAIR) 10 mg ORAL AT BEDTIMEmagnesium oxide 400 mg tab(s) (MAG-OX) 400 mg ORAL DAILYspironolactone 25 mg tab(s) (ALDACTONE) 25 mg ORAL BIDhydroCHLOROthiazide 25 mg tab(s) (HYDRODIURIL, ESIDRIX) 25 mg ORAL DAILYiv contrast (radiology procedure) INTRAVENOUS DIRECTED PRNCURRENT ALLERGIES:ALLERGIESAllerge n Reactions- Clindamycin Hives- Macrodantin [Nitrof* Other: See Comments Off-balance- Percocet [Oxycodone* Other: See Comments Nausea- Sulfa (Sulfonamide * Rash, Itching localized rash and itching all over- Zithromax [Azithrom* Rash, Itching localized rash and itching all over- Zenicef [Other] Rash, Itching itching in mouth; localized rash and itching all overPatient Vitals for the past 24 hrs: BP Temp Temp src Pulse Resp [id number]/24/16 0844 137/64 37 ?C (98.6 ?F) Oral 69 18 96 %12/24/16 0654 - - - 88 18 -12/24/16 0644 - - - 85 18 95 %12/24/16 0449 124/69 36.6 ?C (97.9 ?F) Oral 98 16 96 %12/24/16 0029 159/50 36.7 ?C (98 ?F) Oral 87 18 97 %12/23/162020 - - - 84 18 -12/23/162014 141/80 36.8 ?C (98.2 ?F) Temporal Art 84 17 96 %12/23/162007 - - - 85 16 97 %12/23/16 1633 - - - 80 18 -12/23/16 1621 - - - 80 18 95 %12/23/16 1532 136/64 36.7 ?C (98.1 ?F) Oral 82 18 95 %12/23/16 1236 - - - 88 18 -12/23/16 1224 135/75 36.9 ?C (98.4 ?F) Oral 85 20 97 %12/23/16 1218 - - - 85 18 95 %Intake/Output Summary (Last 24 hours) at 12/24/16 0940Last data filed at 12/24/16 0844 Gross per 24 hourIntake 440 mlOutput 0 mlNet 440 mlOBJECTIVEPHYSICAL EXAM:BP 137/64 Pulse 69 Temp (Src) 98.6 (Oral) Resp 18 Ht 5' 2 (1.58m) Wt 226 lb 6.4 oz (102.7kg) SpO2 96% BMI 41.40 kg/(m2).General appearance: Morbidly obese, well appearing, alert, in no acutedistressNose/Sinuses: Nares normal, septum midline, mucosa normal, no drainage orsinus tendernessOropharynx: Lips, mucosa, and tongue normal, teeth and gums normal,oropharynx normalRespiratory: Bilateral rhonchiCardiovascular: Negative. RRR without murmur, gallop, or rubs. No ectopyAbdomen: Soft, non tender, non distended. Normal bowel sounds.Extremities: Normal pulses. No peripheral edema.DATADiagnostic tests reviewed for today's visit, films/specimens werepersonally reviewed by me:Most recent labs and imaging results.CBC, Coags, BMP, Mg, PhosRecent Labs 12/23/1708WBC 11.95* 16.49* -- --HB 12.0 12.7 -- --HCT 37.2 39.2 -- --PLT 206 236 -- --NA 129* -- 130* 131*K 3.6 -- 4.0 4.0CHLOR 89* -- 88* 89*CO2 26 -- 24 27BUN 47* -- 52* 52*CREAT 1.20 -- 1.41* 1.48*GLUC 197* -- 221* 207*CA 8.9 -- 9.1 9.4Liver Function, Amylase, AND LipaseRecent Labs 12/23/1704TPROT 5.9* 6.1 6.3ALB 3.4* 3.5 3.7ALT 45 44 44AST 17 15 15ALKPHOS 71 71 78TBILI 0.8 0.6 0.5Cardiac EnzymesABGsSIGNATURE: Jaya Darby Rai, MD PATIENT NAME: Laura StarkDATE: December 24, 2016 : 9:40 AM PAGER/CONTACT #: [phone] Normal [facility] Comp Metabolic Panelon 12-24 Alanine aminotransferase (ALT) 45 U/L Normal 0-45 [facility] Comment on above: Performed By: #### C BCDIF, PT, PTT, CMP, MG1 ####[facility] [address] [place], [place] [phone] Albumin 3.4 g/dL Low 3.5-5.0 [facility] Comment on above: Performed By: #### C BCDIF, PT, PTT, CMP, MG1 ####[facility] [address] [place] [address] Alkaline phosphatase (ALP) 71 U/L Normal 40-150 [facility] Comment on above: Performed By: #### C BCDIF, PT, PTT, CMP, MG1 ####[facility] [address] [place] [address] Anion gap 14 mmol/L Normal 0-15 [facility] Comment on above: Performed By: #### C BCDIF, PT, PTT, CMP, MG1 ####[facility] [address] [place] [address] Aspartate aminotransferase (AST) 17 U/L Normal 7-40 [facility] Comment on above: Performed By: #### C BCDIF, PT, PTT, CMP, MG1 ####[place] [address] Bilirubin (total) 0.8 mg/dL Normal 0.0-1.5 [facility] Comment on above: Performed By: #### C BCDIF, PT, PTT, CMP, MG1 ####[place] [address] Calcium 8.9 mg/dL Normal 8.5-10.5 [facility] Comment on above: Performed By: #### C BCDIF, PT, PTT, CMP, MG1 ####[facility] [address] [place] [address] Chloride 89 mmol/L Low 98-110 [facility] Comment on above: Performed By: #### C BCDIF, PT, PTT, CMP, MG1 ####[facility] [address] [place] [address] CO2 26 mmol/L Normal 23-32 [facility] Comment on above: Performed By: #### C BCDIF, PT, PTT, CMP, MG1 ####[facility] [address] [place] [address] Creatinine 1.20 mg/dL Normal 0.70-1.40 [facility] Comment on above: Performed By: #### C BCDIF, PT, PTT, CMP, MG1 ####[facility] [address] [place] [address] eGFR (non-black) 55 mL/min/{1.73_m2} Normal [facility] Comment on above: Performed By: #### C BCDIF, PT, PTT, CMP, MG1 ####[facility] [address] [place] [address] eGFR (non-black) 46 . Normal [facility] Comment on above: Result Comment: eGFR (Estimated GFR) Units of measure: mL/min/1.73 meters squaredeGFR is derived from the reexpressed MDRD Study equation using the following parameters: serum creatinine, age, gender and race. The creatinine assay has been calibrated to be traceable to IDMS.An eGFR <60 mL/min/1.73m2 for >3 months is consistent with chronic kidney disease. Refer to KDOQI guidelines for clinical interpretation.In patients with unstable renal function, e.g. those with acute kidney injury, the eGFR may not accurately reflect actual GFR. Performed By: #### C BCDIF, PT, PTT, CMP, MG1 ####[facility] [address] [place] [address] Glucose mass conc 197 mg/dL High 65-100 [facility] Comment on above: Performed By: #### C BCDIF, PT, PTT, CMP, MG1 ####[facility] [address] [place] [address] Potassium molar conc 3.6 mmol/L Normal 3.5-5.0 [facility] Comment on above: Performed By: #### C BCDIF, PT, PTT, CMP, MG1 ####[facility] [address] [place] [address] Protein 5.9 g/dL Low 6.0-8.4 [facility] Comment on above: Performed By: #### C BCDIF, PT, PTT, CMP, MG1 ####[facility] [address] [place] [address] Sodium 129 mmol/L Low 132-148 [facility] Comment on above: Performed By: #### C BCDIF, PT, PTT, CMP, MG1 ####[facility] [address] [phone] Urea nitrogen 47 mg/dL High 10-08 [facility] Comment on above: Performed By: #### C BCDIF, PT, PTT, CMP, MG1 ####[facility] [address] [place] [phone] NURSING PROGon 12-24-2016 NURSING PROG HNO ID: [id number] thor: Ayana (Rn) LEVI Bryantervice: (none)Author Type: Registered NurseType: Nursing Progress NoteFiled: 12/24/2016 7:38 PMNote Text: Nursing Progress NotePatient Name: Laura StarkMRN: [id number] Location: [place] [address]/[id number]___ Daily Note: 0810: AM labs drawn at this time. Patient denies pain. No SOB.Inspiratory wheeze and rhonchi noted in bilateral upper lobes. Heart rateirregular, but stable. Edema noted in BLE, worse in left leg. Pulse andsensation intact. No needs.0945: Patient rhythm flipping in and out of A fib at this time. HR rangingfrom 115-150's. Patient c/o 4/10 chest tightness that is new for her. AMmedications administered.1010: EKG complete: ST with vent rate 142. Patient continues to c/o samechest tightness and nausea.1035: patient medicated for nausea, declined pain medication at this time.Placed on 2L oxygen for comfort.1110: Patient feeling less nauseous. Chest tightness subsiding. Norespiratory distress.1200: Lab drawn via PICC. IVP cardiazem administered by Maksim Green RN.1226: Patient in SR after receiving Cardizem, but flipped back to A fibshortly after, rate controlled 70-80s.1325: patient had BM at this time, mixed with urine. Unable to collectstool sample.1400: Dr. Nugent aware of AM sodium level.184: Patient remains in A fib with heart rate now ranging from 112-120's.Patient SOB on exertion to bathroom and feeling wheezy. IV antibioticcompleted at this time. Page to Dr. Burton.193: PO diltiazem administered per orders. HR 114 at this time. Patientdenies chest pressure. Non-productive cough present.This note was completed by: Ayana Bryant RN [facility] PROGRESSon 12-24-2016 PROGRESS HNO ID: [id number] thor: Ronny WashingtonpuService: Cardiovascular DiseaseAuthor Type: PhysicianType: Progress NotesFiled: 12/24/2016 4:23 PMNote Text:INPATIENT CONSULT PROGRESS NOTESPatient Name: Laura StarkMRN: [id number] of SERVICE: 12/24/2016TIME of SERVICE: 4:17 PMCONSULTING SERVICE: CardiologyINTERVAL HPI: Stable and has no active bleeding. She remains tachy butasymptomatic. Not short of breath but has non productive cough.DRUGS REVIEWED:ASSESSMENT AND PLAN:Status post AF and now in sinus tachycardiaRelatively stable cardiac statusExacerbation of asthma and tracheobronchitisHyponatre miaAtelectasisObesity and probable obstructive sleep apneaHyperactive thyroid: currently on methimazoleContinue current therapy?PHYSICAL EXAM:Blood pressure 129/64, pulse 104, temperature 36.9 ?C (98.4 ?F),temperature source Oral, resp. rate 20, height 157.5 cm (5' 2), nciowr718.8 kg (237 lb 10.5 oz), SpO2 96 %.??Body mass index is 43.47 kg/(m2).GENERAL: ?Alert, no distress, cooperativeNECK: No jugulovenous distention, No carotid bruits, Carotid pulse normalcontour, SuppleLUNGS: Lungs clear to auscultation, Good diaphragmatic excursionCARDIAC: irregular?S1 and S2; no rubs, murmurs, or gallopsABDOMEN:benign, soft, flat, non-tender, no masses, normal bowel soundsNEURO: Awake, alert and oriented x 3EXTREMITIES: Extremities normal, no deformities, 1+edema, But no clubbingor skin discoloration. Good capillary refill., No ulcersPULSES: 2+ radial, 2+?LABS: CBC:Recent Labs WBC 11.95*RBC 4.39HB 12.0HCT 37.2PLT 206MCV 84.7MCH 27.3MPV 10.1CMP:Recent Labs NA 129*K 3.6CHLOR 89*CO2 26BUN 47*CREAT 1.20GLUC 197*TPROT 5.9*CA 8.9TBILI 0.8ALKPHOS 71ALT 45AST 17ANION 14Cardiac Enzymes: No results for input(s): CK, MB, CKMB, TROPT in the last24 hours.SIGNATURE: Ronny Valente [facility]AM[facility]EL; [phone]: December 24, 2016TIME: 4:17 PM [facility] PROGRESS HNO ID: [id number] thor: Kiara Fleming: General Internal MedicineAuthor Type: PhysicianType: Progress NotesFiled: 12/24/2016 6:44 PMNote Text:INTERNAL MEDICINE PROGRESS NOTEADMITTING PHYSICIAN: Kiara Galloway COMPLAINT: improving cough and wheezing today, able to expectoratenow, no further bleeding,Current Facility-Administered Medications:piperacillin-t azobactam 3.375 g in dextrose (iso-osmotic) 50 mL (ZOSYN)3.375 g INTRAVENOUS q 6 Hinsulin lispro 7 Units injection (rapid acting) (HumaLOG) 7 UnitsSUBCUTANEOUS w MEALSinsulin NPH human 14 Units injection (intermediate acting) (NovoLIN N,HumuLIN N) 14 Units SUBCUTANEOUS BIDapixaban 5 mg tab(s) (ELIQUIS) 5 mg ORAL BIDaspirin, enteric coated 81 mg tab(s) (ASPIRIN, ENTERIC COATED) 81 mg ORALDAILYhydrocortisone 25 mg suppository (HEMORRHOIDAL HC) 25 mg RECTAL q 12 Hpolyethylene glycol 3350 17 g packet (MIRALAX, GLYCOLAX) 17 g ORAL BIDmethylPREDNISolone sod succinate(PF) 60 mg injection (Solu-MEDROL) 60 mgINTRAVENOUS q 12 Halbuterol 2.5 mg /3 mL (0.083 %) 2.5 mg (PROVENTIL) 2.5 mg INHALATION q 4H while awakealbuterol 2.5 mg /3 mL (0.083 %) 2.5 mg (PROVENTIL) 2.5 mg INHALATION q 2H PRNpantoprazole DR 40 mg tab(s) (PROTONIX) 40 mg ORAL BID AC (0600/1600)guaiFENesin 1,200 mg ER tab(s) (MUCINEX) 1,200 mg ORAL q 12 Hbudesonide 0.5 mg/2 mL 0.5 mg (PULMICORT) 0.5 mg INHALATION BIDmetHIMazole 5 mg tab(s) (TAPAZOLE) 5 mg ORAL DAILYmorphine 1-2 mg injection 1-2 mg INTRAVENOUS q 4 H PRNdigoxin 0.25 mg tab(s) (LANOXIN) 0.25 mg ORAL DAILYdiltiazem CD 240 mg cap(s) (CARDIZEM CD, CARTIA XT) 240 mg ORAL DAILYondansetron (PF) 4 mg injection (ZOFRAN) 4 mg INTRAVENOUS q 6 H PRN0.9% NaCl 10 mL 10 mL INTRAVENOUS q 12 H0.9% NaCl 20 mL 20 mL INTRAVENOUS PRNcodeine-guaiFENesin 5-10 mL oral liquid (ROBITUSSIN AC) 5-10 mL ORAL q 6 HPRNdextrose 40 % 15 g (INSTA-GLUCOSE) 15 g ORAL PRNOrglucagon 1 mg injection (GLUCAGEN) 1 mg INTRAMUSCULAR PRNOrdextrose 50% in water 25 mL syringe 12.5 g INTRAVENOUS PRNHYDROcodone 5 mg - acetaminophen 325 mg tablet (NORCO) 1-2 tablet ORAL q 6H PRNmontelukast 10 mg tab(s) (SINGULAIR) 10 mg ORAL AT BEDTIMEmagnesium oxide 400 mg tab(s) (MAG-OX) 400 mg ORAL DAILYspironolactone 25 mg tab(s) (ALDACTONE) 25 mg ORAL BIDhydroCHLOROthiazide 25 mg tab(s) (HYDRODIURIL, ESIDRIX) 25 mg ORAL DAILYiv contrast (radiology procedure) INTRAVENOUS DIRECTED PRNINTERVAL HISTORY OF PRESENT ILLNESS: No n/v/d.No orthopnea, pnd,cpain, fever, chills.Consult notes reviewed.OBJECTIVEPHYSICAL EXAM:Blood pressure 116/56, pulse (!) 52, temperature 37 ?C (98.6 ?F),temperature source Oral, resp. rate 18, height 157.5 cm (5' 2), ovrico970.7 kg (226 lb 6.4 oz), SpO2 95 %.Body mass index is 41.41 kg/(m2).GENERAL: Morbidly Obese, Alert, no DistressNECK: SuppleLUNGS: decreased a/e, occ ronchi.CARDIAC: s1s2: regABDOMEN: Soft, nontenderEXTREMITIES: Extremities normal, no deformities, edema, clubbing or skindiscoloration. Good capillary refill.NEURO: Alert, oriented X 3, Gait normal. Non-focal. Reflexes normal andsymmetric. Sensation grossly intact.PULSES: 2+ radialDATA:Diagnostic tests reviewed for today's visit:Most recent labs and imaging results.ASSESSMENT/PLANAct aravind Problems: Acute Asthma exacerbation with HCAP? recent sputum cx with MRSA and E.coli: continue iv steroids and iv zosyn, Continue nebs. Noted Pulmonary eval.Continue codeine cough syrup, Weakness POA: Yes Assessment AND Plan: due to above. Obesity, Class III, BMI >= 40 (morbid obesity) E66.01 Assessment AND Plan: encourage wt. Loss. Hyperglycemia due to steroids: Continue basal and SSI.PAF:appreciate Endo eval for hyperthyroidism,Appreciate : Cardio eval.Diarrhea/ GI bleed;Appreciate GI,Resume ASA/Eliquis.Noted PT/OT eval.D/w ID.SIGNATURE: Kiara Nugent MD PATIENT NAME: Laura Stark PAGER/CONTACT #: Normal [facility] Procalcitoninon 12-24-2016 Procalcitonin 0.14 ng/mL High <0.09 [facility] Comment on above: Result Comment: For a guided interpretation of test results, please visit the Change in Procalcitonin Calculator, [email or web address]. Performed By: #### C BCDIF, PT, PTT, CMP, MG1 ####[facility] Kzxyfrgmbe0473 [phone] CBCon 12-23-2016 Erythrocyte distribution width Auto Ratio (RBC) 17.0 % High 11.5-15.0 [facility] Comment on above: Performed By: #### C BCDIF, PT, PTT, CMP, MG1 ####[facility] [address] [place] [address] Erythrocytes (RBC) 4.59 10*6/uL Normal 3.90-5.20 [facility] Comment on above: Performed By: #### C BCDIF, PT, PTT, CMP, MG1 ####[place] [address] Hematocrit (HCT) 39.2 % Normal 36.0-46.0 [facility] Comment on above: Performed By: #### C BCDIF, PT, PTT, CMP, MG1 ####[place] [address] Hemoglobin mass conc (Bld) 12.7 g/dL Normal 11.5-15.5 [facility] Comment on above: Performed By: #### C BCDIF, PT, PTT, CMP, MG1 ####[place] [address] MCH 27.7 pG Normal 26.0-34.0 [facility] Comment on above: Performed By: #### C BCDIF, PT, PTT, CMP, MG1 ####[place] [address] MCHC mass conc (RBC) 32.4 g/dL Normal 30.5-36.0 [facility] Comment on above: Performed By: #### C BCDIF, PT, PTT, CMP, MG1 ####[place] [address] MCV 85.4 fL Normal 80.0-100.0 [facility] Comment on above: Performed By: #### C BCDIF, PT, PTT, CMP, MG1 ####[place] [address] Platelet mean volume (PMV) 10.3 fL Normal 9.0-12.7 [facility] Comment on above: Performed By: #### C BCDIF, PT, PTT, CMP, MG1 ####[place] [id number] Platelets 236 10*3/uL Normal 150-400 [facility] Comment on above: Performed By: #### C BCDIF, PT, PTT, CMP, MG1 ####[facility] Pteqkzmlst5148 [phone] WBC (Leukocytes) 16.49 10*3/uL High 3.70-11.00 [facility] Comment on above: Performed By: #### C BCDIF, PT, PTT, CMP, MG1 ####[facility] Ryvzaajlqq0007 [phone] CONSULTon 12-23-2016 CONSULT HNO ID: [id number] thor: Ottoniel Ramireze: GastroenterologyAuthor Type: PhysicianType: ConsultsFiled: 12/23/2016 4:46 PMNote Text:GASTROENTEROLOGY CONSULT NOTEPATIENT NAME: Laura StarkMRN: [id number] DATE: December 23, 2016SERVICE TIME: 10:59 [facility]PR[facility]ASTPO[facility] PH[facility]ICIAN: GAVI Oseguera PHYSICIAN: JESICA ReyezEASON FOR ADMISSION: Asthma exacerbationREASON FOR CONSULTATION: Bloody diarrheaHPI: This is a 61 year old female with a past medical history significantfor DVT, PE, asthma, HTN, morbid obesity who presented on 12/15/16 withdyspnea, fever, cough and felt to have acute asthma exacerbation. [facility] for E.coli and MRSApneumonia and treated with antibiotics and steroids. Her hospital coursehas been complicated by new onset atrial fibrillation with RVR andhyperthyroidism felt either due to Graves versus toxic nodule. She iscurrently being treated with Solu-Medrol and Methimazole. She is s/pcourse of Vancomycin and Ceftriaxone. A GI evaluation has been requestedfor bloody diarrhea. She reports constipation without BM for 8-9 days. Shewas given Magnesium Citrate and Dulcolax on Tuesday and yesterday had 4liquid stools. At that time she noted small-volume BRB on toilet tissue.Since that time she has noted fecal leakage with continued small-volumerectal bleeding. She notes typically has a BM once daily to every otherday. She has been in and out of the hospital since October forrespiratory issues. Denies abdominal pain but notes some upper abdominalbloating. Intermittent nausea without vomiting. Has chronic GERD onOmeprazole 40 mg daily with occasional breakthrough symptoms. Deniesdysphagia/odynophagi a. No melena. She is on Eliquis for the new Afib.ALLERGIES:ALLERGIESAl lergen Reactions- Clindamycin Hives- Macrodantin [Nitrof* Other: See Comments Off-balance- Percocet [Oxycodone* Other: See Comments Nausea- Sulfa (Sulfonamide * Rash, Itching localized rash and itching all over- Zithromax [Azithrom* Rash, Itching localized rash and itching all over- Zenicef [Other] Rash, Itching itching in mouth; localized rash and itching all overPAST MEDICAL HISTORY:DVT / PEAsthmaHTNMorbid obesityPAST SURGICAL HISTORY:AppendectomyC-sect ionIVC filter placement with subsequent removalIncisional hernia repair with mesh complicated by infection requiring I+Dwith wound vac and subsequent redo hernia repairRight ankle surgeryRight shoulder partial replacementHysterectomyLap aroscopic lysis of adhesionsMEDICATIONS:Prior to Admission Medications:Prescriptions Prior to Admission:predniSONE (DELTASONE) 20 mg tablet Take 20 mg by mouth once daily. Taperstarting 12/16/16 20mg x3 days, 10mg x3days, 5mg x3 days. Thendiscontinued Disp: Rfl:doxycycline hyclate (VIBRAMYCIN) 100 mg capsule Take 100 mg by mouth twicedaily. 12/17/16 AM last dose Disp: Rfl: 12/15/2016 at 0700guaiFENesin (MUCINEX) 1,200 mg Ta12 Take by mouth twice daily. Disp:Rfl: 12/15/2016 at 0700fluticasone-salmeterol (ADVAIR DISKUS) 500-50 mcg/dose dsdv Inhale 1 [place] instructed twice daily. Disp: Rfl: 12/15/2016 at 0700ipratropium-albuterol (DUONEB) 0.5 mg-3 mg(2.5 mg base)/3 mL nebu Inhale 3mL as instructed every 4 hours as needed. Disp: Rfl: Unknown at Unknowntimealbuterol (PROVENTIL) 2.5 mg /3 mL (0.083 %) nebulizer solution Use 2.5 mgvia nebulizer every 4 hours as needed. Disp: Rfl: 12/15/2016spironolactone (ALDACTONE) 25 mg tablet Take 25 mg by mouth twice daily.Disp: Rfl: 12/15/2016 at 1200aspirin, enteric coated (ASPIRIN, ENTERIC COATED) 325 mg EC tablet Udas765 mg by mouth once daily. Disp: Rfl: 12/15/2016 at 0700hydroCHLOROthiazide (HYDRODIURIL, ESIDRIX) 25 mg tablet Take 25 mg bymouth once daily. Disp: Rfl: 12/15/2016 at 1200magnesium oxide (MAG-OX) 400 mg tablet Take 400 mg by mouth once daily.Disp: Rfl: 12/14/2016 at 2200melatonin 3 mg Take 3 mg by mouth daily at bedtime. Disp: Rfl:12/14/2016 at 2200Omeprazole (PRILOSEC) 40 mg capsule Take 40 mg by mouth once daily. Disp:Rfl: 12/15/2016 at 0700montelukast (SINGULAIR) 10 mg tablet Take 10 mg by mouth daily at bedtime.Disp: Rfl: 12/14/2016 at 2200fluticasone (FLONASE) 50 mcg/actuation nasal spray Use 1 [place] in eachnostril twice daily. Disp: Rfl: 12/15/2016 at 0700diltiazem CD (CARDIZEM CD) 180 mg 24 hr capsule Take 180 mg by mouth oncedaily. Disp: Rfl: 12/15/2016 at 1200acetaminophen (TYLENOL ARTHRITIS PAIN) 650 mg CR tablet Take 1,300 mg bymouth at bedtime as needed. Disp: Rfl: 12/14/2016 at 2200albuterol HFA (PROAIR HFA) 90 mcg/actuation inhaler Inhale 2 Puffs asinstructed every 4 hours as needed. Disp: Rfl:Current Hospital Medications:Current hospital medications:insulin NPH human 9 Units injection (intermediate acting) (NovoLIN N,HumuLIN N) 9 Units SUBCUTANEOUS BIDmethylPREDNISolone sod succinate(PF) 60 mg injection (Solu-MEDROL) 60 mgINTRAVENOUS q 12 Halbuterol 2.5 mg /3 mL (0.083 %) 2.5 mg (PROVENTIL) 2.5 mg INHALATION q 4H while awakealbuterol 2.5 mg /3 mL (0.083 %) 2.5 mg (PROVENTIL) 2.5 mg INHALATION q 2H PRNpantoprazole DR 40 mg tab(s) (PROTONIX) 40 mg ORAL BID AC (0600/1600)guaiFENesin 1,200 mg ER tab(s) (MUCINEX) 1,200 mg ORAL q 12 Hbudesonide 0.5 mg/2 mL 0.5 mg (PULMICORT) 0.5 mg INHALATION BIDmetHIMazole 5 mg tab(s) (TAPAZOLE) 5 mg ORAL DAILYmorphine 1-2 mg injection 1-2 mg INTRAVENOUS q 4 H PRNdigoxin 0.25 mg tab(s) (LANOXIN) 0.25 mg ORAL DAILYpolyethylene glycol 3350 17 g packet (MIRALAX, GLYCOLAX) 17 g ORAL DAILYdiltiazem CD 240 mg cap(s) (CARDIZEM CD, CARTIA XT) 240 mg ORAL DAILYondansetron (PF) 4 mg injection (ZOFRAN) 4 mg INTRAVENOUS q 6 H PRN0.9% NaCl 10 mL 10 mL INTRAVENOUS q 12 H0.9% NaCl 20 mL 20 mL INTRAVENOUS PRNcodeine-guaiFENesin 5-10 mL oral liquid (ROBITUSSIN AC) 5-10 mL ORAL q 6 HPRNdextrose 40 % 15 g (INSTA-GLUCOSE) 15 g ORAL PRNglucagon 1 mg injection (GLUCAGEN) 1 mg INTRAMUSCULAR PRNdextrose 50% in water 25 mL syringe 12.5 g INTRAVENOUS PRNinsulin lispro injection (rapid acting) (HumaLOG) SUBCUTANEOUS w MEALSinsulin lispro injection (rapid acting) (HumaLOG) SUBCUTANEOUS AT BEDTIMEHYDROcodone 5 mg - acetaminophen 325 mg tablet (NORCO) 1-2 tablet ORAL q 6H PRNmontelukast 10 mg tab(s) (SINGULAIR) 10 mg ORAL AT BEDTIMEmagnesium oxide 400 mg tab(s) (MAG-OX) 400 mg ORAL DAILYspironolactone 25 mg tab(s) (ALDACTONE) 25 mg ORAL BIDhydroCHLOROthiazide 25 mg tab(s) (HYDRODIURIL, ESIDRIX) 25 mg ORAL DAILYiv contrast (radiology procedure) INTRAVENOUS DIRECTED PRNFAMILY HISTORY:Maternal grandmother - colon cancer (in her 70s)Maternal uncle x 2 - colon cancer (>70 years of age at diagnosis)SOCIAL HISTORY:Alcohol use: DeniesTobacco use: Ex-smoker: quit in 1995PHYSICAL EXAM:BP 135/75 Pulse 88 Temp 36.9 ?C (98.4 ?F) (Oral) Resp 18 Ht 157.5cm (5' 2) Wt 102.7 kg (226 lb 6.4 oz) SpO2 97% BMI 41.41 kg/m2Body mass index is 41.41 kg/(m2).GENERAL: Alert AND oriented x 3. Cooperative. NADEYES: No scleral icterusSKIN: [place] in color. No jaundiceLUNGS: Expiratory wheezing bilateral lung fieldsCARDIAC: RRRABDOMEN: BS x 4. Abdomen obese but soft, tender BLQ and epigastrium(ecchymosis at BLQ which she feels is reason for tenderness), nondistended, no palpable masses or organomegaly. No guarding or reboundtenderness elicitedEXTREMITIES: No upper or lower extremity edemaLABS:Diagnostic tests reviewed for today's visit:CBC, Coags, BMP, Mg, PhosRecent Labs 12/23/1704WBC 16.49* -- -- -- 10.56HB 12.7 -- -- -- 12.1HCT 39.2 -- -- -- 37.8PLT 236 -- -- -- 227NA -- 130* 131* 131* 130*K -- 4.0 4.0 3.9 7.3*CHLOR -- 88* 89* 88* 88*CO2 -- 24 27 25 25BUN -- 52* 52* 40* 42*CREAT -- 1.41* 1.48* 1.38 1.41*GLUC -- 221* 207* 198* 208*CA -- 9.1 9.4 9.4 5.3*Liver Function, Amylase, AND LipaseRecent Labs 12/23/1703TPROT 6.1 6.3 6.2ALB 3.5 3.7 3.6ALT 44 44 39AST 15 15 13ALKPHOS 71 78 70TBILI 0.6 0.5 0.5QBEBUXUYX75/1/17 [address] ChestIMPRESSION:1. ? Mild atelectasis within bilateral lungs. Otherwise, no acuteabnormality.2. Ovoid area of fat attenuation interposed between right and left atriaconsistent with lipomatous hypertrophy of interatrial septum.MOST RECENT EGDRemote: hx gastritis at that timeMOST RECENT COLONOSCOPY: 01/09/2013. (Peter Lerma MD - [place]).Screening1. The perianal and digital rectal examinations were normal.2. The colon (entire examined portion) was moderately tortuous.3. The exam was otherwise without abnormality.4. Good bowel prepASSESSMENT1. Rectal bleeding - suspect hemorrhoidal in the context of constipation2. Fecal leakage with constipation - possibly overflow diarrhea. Doubtthis is a C.diff infection3. GERD4. Asthma exacerbation / recent PNA5. New pAFIB / HyperthyroidismPLAN- Initiate Hemorrhoidal HC 25 mg DC twice daily- Obtain 2-view abdomen to r/o fecal impaction/assess stool burden- Increase Miralax 17 g to twice daily. May need further bowel regimen- May need colonoscopy if symptoms fail to resolve but would defer untilable to safely hold Eliquis and acute pulmonary issues have improved- Continue Protonix 40 mg po twice daily- Regular diet- C.diff is being ruled out per IM- Mgmt of #4 per IM/pulmonology. Mgmt of #5 per cardiology/endocrinologyTh ank you for the opportunity to participate in the care of this patient.I will continue to follow with you.SIGNATURE: HANANE ContrerasDATE: December 23, 2016TIME: 10:59 AMPatient seen and examined. Discussed with mid level provider. Starkey findingsconfirmed. Plan as outlined.New onset small volume hematochezia.Hemorrhoidal source seems most likely.Will treat as above and delay any endoscopic evaluation until safe forsedation.Monitor for gi bleed.Ottoniel Hinds MDNovember 20164:45 PM Normal [facility] CONSULT PROGon 12-23-2016 CONSULT PROG HNO ID: [id number] thor: PARVIN Pinaervice: EndocrinologyAuthor Type: PhysicianType: Consult Progress NoteFiled: 12/23/2016 4:49 PMNote Text:Endocrinology Progress NoteIMPRESSION: Steroid-induced hyperglycemia - likely a harbinger ofunderlying Type 2 diabetes mellitusHyperthyroidism - mild, on methimazole. Must have TFTs rechecked in 7-10days, for potential dose adjustment (OK to fax results to [phone] forinterpretation).PLAN: Increased NPH insulin to 11 units BID, added set doses of Humalog atmeals 4 unitsDiscontinue sliding scaleCheck glucose ac and 2 hours pcCall covering supervisor smoke control if glucose is less than 80 mg/dL or greaterthan 200 mg/dL.INTERVAL HISTORY: Breathing is manageable, remains weak. Remains on IVsteroids.Current hospital medications:hydrocortisone 25 mg suppository (HEMORRHOIDAL HC) 25 mg RECTAL q 12 Hpolyethylene glycol 3350 17 g packet (MIRALAX, GLYCOLAX) 17 g ORAL BIDinsulin NPH human 11 Units injection (intermediate acting) (NovoLIN N,HumuLIN N) 11 Units SUBCUTANEOUS BIDinsulin lispro 4 Units injection (rapid acting) (HumaLOG) 4 UnitsSUBCUTANEOUS w MEALSmethylPREDNISolone sod succinate(PF) 60 mg injection (Solu-MEDROL) 60 mgINTRAVENOUS q 12 Halbuterol 2.5 mg /3 mL (0.083 %) 2.5 mg (PROVENTIL) 2.5 mg INHALATION q 4H while awakealbuterol 2.5 mg /3 mL (0.083 %) 2.5 mg (PROVENTIL) 2.5 mg INHALATION q 2H PRNpantoprazole DR 40 mg tab(s) (PROTONIX) 40 mg ORAL BID AC (0600/1600)guaiFENesin 1,200 mg ER tab(s) (MUCINEX) 1,200 mg ORAL q 12 Hbudesonide 0.5 mg/2 mL 0.5 mg (PULMICORT) 0.5 mg INHALATION BIDmetHIMazole 5 mg tab(s) (TAPAZOLE) 5 mg ORAL DAILYmorphine 1-2 mg injection 1-2 mg INTRAVENOUS q 4 H PRNdigoxin 0.25 mg tab(s) (LANOXIN) 0.25 mg ORAL DAILYdiltiazem CD 240 mg cap(s) (CARDIZEM CD, CARTIA XT) 240 mg ORAL DAILYondansetron (PF) 4 mg injection (ZOFRAN) 4 mg INTRAVENOUS q 6 H PRN0.9% NaCl 10 mL 10 mL INTRAVENOUS q 12 H0.9% NaCl 20 mL 20 mL INTRAVENOUS PRNcodeine-guaiFENesin 5-10 mL oral liquid (ROBITUSSIN AC) 5-10 mL ORAL q 6 HPRNdextrose 40 % 15 g (INSTA-GLUCOSE) 15 g ORAL PRNglucagon 1 mg injection (GLUCAGEN) 1 mg INTRAMUSCULAR PRNdextrose 50% in water 25 mL syringe 12.5 g INTRAVENOUS PRNHYDROcodone 5 mg - acetaminophen 325 mg tablet (NORCO) 1-2 tablet ORAL q 6H PRNmontelukast 10 mg tab(s) (SINGULAIR) 10 mg ORAL AT BEDTIMEmagnesium oxide 400 mg tab(s) (MAG-OX) 400 mg ORAL DAILYspironolactone 25 mg tab(s) (ALDACTONE) 25 mg ORAL BIDhydroCHLOROthiazide 25 mg tab(s) (HYDRODIURIL, ESIDRIX) 25 mg ORAL DAILYiv contrast (radiology procedure) INTRAVENOUS DIRECTED PRNPHYSICAL EXAM:BP 136/64 Pulse 80 Temp 36.7 ?C (98.1 ?F) (Oral) Resp18 Ht 157.5 cm (5' 2) Wt 102.7 kg (226 lb 6.4 oz) SpO2 95% BMI41.41 kg/x6Osmgphg appearance: Well-appearing, morbidly obese (BMI greater than 40)female, alert, in no acute distress, well-hydrated, well nourished.Skin: Skin color, texture, turgor normal, no suspicious rashes or lesionsHead: normocephalic, no masses, lesions, tenderness or abnormalitiesEyes: Anicteric sclera. Pupils are equally round. Extraocular movementsare intact.Ears: not examinedNose/Sinuses: Nares normal. No drainage or sinus tenderness.Oropharynx: Lips, mucosa, and tongue normal, teeth and gums not examined.Neck: Supple, no adenopathy; no visible thyroid enlargement.Lungs: Breathing unlabored.Heart: RRR. No ectopyAbdomen: deferredExtremities: No deformities, edema, skin discoloration, clubbing orcyanosis. Good capillary refill.Musculoskeletal: Spine range of motion not tested. Muscular strengthintact, No joint swelling, deformity, or tendernessNeuro: Gait not observed. Sensation grossly intact.LAB DATA: Fingerstick glucose readings reviewed.Results for LAURA STARK ( ) Ref. Range 12/23/2016 05:23Sodium Latest Ref Range: 132 - 148 mmol/L 130 (L)Potassium Latest Ref Range: 3.5 - 5.0 mmol/L 4.0Chloride Latest Ref Range: 98 - 110 mmol/L 88 (L)CO2 Latest Ref Range: 23 - 32 mmol/L 24BUN Latest Ref Range: 8 - 25 mg/dL 52 (H)Creatinine Latest Ref Range: 0.70 - 1.40 mg/dL 1.41 (H)Glucose Latest Ref Range: 65 - 100 mg/dL 221 (H)Protein, Total Latest Ref Range: 6.0 - 8.4 g/dL 6.1Calcium Latest Ref Range: 8.5 - 10.5 mg/dL 9.1Albumin Latest Ref Range: 3.5 - 5.0 g/dL 3.5Bilirubin, Total Latest Ref Range: 0.0 - 1.5 mg/dL 0.6Alkaline Phosphatase Latest Ref Range: 40 - 150 U/L 71ALT Latest Ref Range: 0 - 45 U/L 44AST Latest Ref Range: 7 - 40 U/L 15eGFR-All Other Races Latest Units: . 38Johnny Culver [facility] Endocrinology and Metabolism [facility] 20164:42 PM Normal [facility] CONSULT PROG HNO ID: [id number] thor: PARVIN Roldanervice: Infectious DiseaseAuthor Type: PhysicianType: Consult Progress NoteFiled: 12/23/2016 3:32 PMNote Text:INFECTIOUS DISEASE PROGRESS NOTEPatient Name: Laura Stark HISTORY:Bloody diarrhea. Stable on floor. Feels bit better today. Still w coughand wheezing. No fevers. Leucocytosis today w increased steroids. Stillweak. No diarrhea. ROS checked in details. All qs answered.Patient Active Hospital Problem List: Weakness (12/16/2016) Obesity, Class III, BMI >= 40 (morbid obesity) E66.01 (12/16/2016) Malnutrition of moderate degree (HCC) (12/16/2016)ASSESSMENT:MRSA and E coli HCAP. Recent [facility] from [facility] woundAcute respiratory failureFailed OP PO abx treatment w doxyWeaknessObesity, Class III, BMI >= 40Malnutrition of moderate degreeRECOMMENDATIONS:Cont inue off abxFollow Sputum cxReviewed and discussed CXRVEST therapySupportive careWean [id number] careMEDICATIONS: reviewed.Current hospital medications:insulin NPH human 9 Units injection (intermediate acting) (NovoLIN N,HumuLIN N) 9 Units SUBCUTANEOUS BIDmethylPREDNISolone sod succinate(PF) 60 mg injection (Solu-MEDROL) 60 mgINTRAVENOUS q 12 Halbuterol 2.5 mg /3 mL (0.083 %) 2.5 mg (PROVENTIL) 2.5 mg INHALATION q 4H while awakealbuterol 2.5 mg /3 mL (0.083 %) 2.5 mg (PROVENTIL) 2.5 mg INHALATION q 2H PRNpantoprazole DR 40 mg tab(s) (PROTONIX) 40 mg ORAL BID AC (0600/1600)guaiFENesin 1,200 mg ER tab(s) (MUCINEX) 1,200 mg ORAL q 12 Hbudesonide 0.5 mg/2 mL 0.5 mg (PULMICORT) 0.5 mg INHALATION BIDmetHIMazole 5 mg tab(s) (TAPAZOLE) 5 mg ORAL DAILYmorphine 1-2 mg injection 1-2 mg INTRAVENOUS q 4 H PRNdigoxin 0.25 mg tab(s) (LANOXIN) 0.25 mg ORAL DAILYpolyethylene glycol 3350 17 g packet (MIRALAX, GLYCOLAX) 17 g ORAL DAILYdiltiazem CD 240 mg cap(s) (CARDIZEM CD, CARTIA XT) 240 mg ORAL DAILYondansetron (PF) 4 mg injection (ZOFRAN) 4 mg INTRAVENOUS q 6 H PRN0.9% NaCl 10 mL 10 mL INTRAVENOUS q 12 H0.9% NaCl 20 mL 20 mL INTRAVENOUS PRNcodeine-guaiFENesin 5-10 mL oral liquid (ROBITUSSIN AC) 5-10 mL ORAL q 6 HPRNdextrose 40 % 15 g (INSTA-GLUCOSE) 15 g ORAL PRNglucagon 1 mg injection (GLUCAGEN) 1 mg INTRAMUSCULAR PRNdextrose 50% in water 25 mL syringe 12.5 g INTRAVENOUS PRNinsulin lispro injection (rapid acting) (HumaLOG) SUBCUTANEOUS w MEALSinsulin lispro injection (rapid acting) (HumaLOG) SUBCUTANEOUS AT BEDTIMEHYDROcodone 5 mg - acetaminophen 325 mg tablet (NORCO) 1-2 tablet ORAL q 6H PRNmontelukast 10 mg tab(s) (SINGULAIR) 10 mg ORAL AT BEDTIMEmagnesium oxide 400 mg tab(s) (MAG-OX) 400 mg ORAL DAILYspironolactone 25 mg tab(s) (ALDACTONE) 25 mg ORAL BIDhydroCHLOROthiazide 25 mg tab(s) (HYDRODIURIL, ESIDRIX) 25 mg ORAL DAILYiv contrast (radiology procedure) INTRAVENOUS DIRECTED PRNPHYSICAL EXAM:Vital signs: BP 149/73 Pulse 98 Temp 36.8 ?C (98.2 ?F) (Oral) Resp20 Ht 157.5 cm (5' 2) Wt 102.7 kg (226 lb 6.4 oz) SpO2 95% BMI41.41 kg/m2Temp (24hrs), Av.7 ?C (98 ?F), Min:36.5 ?C (97.7 ?F), Max:36.9 ?C(98.4 ?F)General: alert, oriented, NADLungs: bilaterally coarse vesicular BSHeart: regular rate and rhythmAbdomen: soft, non tender, non distended, BS+Extremities: no edemaNo rashesNo joint inflammationNeck suppleLines okNo CVATLabs:Recent Labs 12/21/1704WBC -- -- 10.56HB -- -- 12.1HCT -- -- 37.8PLT -- -- 227NA 131* 131* 130*K 4.0 3.9 7.3*CHLOR 89* 88* 88*CO2 27 25 25BUN 52* 40* 42*CREAT 1.48* 1.38 1.41*Microbiology data: reviewedImaging data: Du Mcginnis [id number]:0 6 AM Normal [facility] CONSULT PROG HNO ID: [id number] thor: Jaya Darby RaiService: Pulmonary DiseaseAuthor Type: PhysicianType: Consult Progress NoteFiled: 12/23/2016 4:30 PMNote Text: RESPIRATORY INSTITUTEPULMONARY MEDICINEIN-PATIENT CONSULT PROGRESS NOTESERVICE DATE: 12/23/2016ASSESSMENT:Asthma with acute exacerbationBilateral atelectasisRecent sputum (+) E coli and MRSA ([facility] - 12/06/16)Paroxysmal atrial fibrillation with RVRRemote history of DVT/PEMorbid obesitySuspected OSALeukocytosis, unspecified - likely secondary to steroidsRECOMMENDATIONS:Co ntinue nebulized albuterol scheduled and PRN.SoluMedrol to 60 mg every 12 hours.Antibiotics as per ID.Mucinex 1200 mg every 12 hours.Pulmicort 0.5 nebulized BIDProtonix dose to 40 mg PO BIDBronchopulmonary hygiene - AcapellaCheck peak flows pre and post treatmentOccupational therapy evaluation and treatmentIf no clinical improvement with above measures, will consider bronchoscopyPlan discussed in detail with patient, RN and primary attending. Patientverbalizes understanding and is in agreement with the current managementplan.Total time spent in patient care includes but is not limited to patient/family discussions, collaborative discussions with other healthcareproviders, review of medical records, review of laboratory tests,radiology images/ results, microbiology and pathology data.Virgen Voss Rai, Respiratory InstituteThe Bellevue HospitalPager #[phone] COMPLAINT: Shortness of breath, wheezingINTERVAL HPI:Laura Stark is a 61 year old female status sinceprevious days visit is feeling slightly better. Patient states that shehas a loose cough productive of yellow mucus after changing DuoNeb toalbuterol. She is also using Acapella device which is helping. Nofevers, chills, night sweats, chest pain, worsening SOB, abd pain or legswellingMEDICATIONS:Cur rent Facility-Administered Medications:hydrocortisone 25 mg suppository (HEMORRHOIDAL HC) 25 mg RECTAL q 12 Hinsulin NPH human 9 Units injection (intermediate acting) (NovoLIN N,HumuLIN N) 9 Units SUBCUTANEOUS BIDmethylPREDNISolone sod succinate(PF) 60 mg injection (Solu-MEDROL) 60 mgINTRAVENOUS q 12 Halbuterol 2.5 mg /3 mL (0.083 %) 2.5 mg (PROVENTIL) 2.5 mg INHALATION q 4H while awakealbuterol 2.5 mg /3 mL (0.083 %) 2.5 mg (PROVENTIL) 2.5 mg INHALATION q 2H PRNpantoprazole DR 40 mg tab(s) (PROTONIX) 40 mg ORAL BID AC (0600/1600)guaiFENesin 1,200 mg ER tab(s) (MUCINEX) 1,200 mg ORAL q 12 Hbudesonide 0.5 mg/2 mL 0.5 mg (PULMICORT) 0.5 mg INHALATION BIDmetHIMazole 5 mg tab(s) (TAPAZOLE) 5 mg ORAL DAILYmorphine 1-2 mg injection 1-2 mg INTRAVENOUS q 4 H PRNdigoxin 0.25 mg tab(s) (LANOXIN) 0.25 mg ORAL DAILYdiltiazem CD 240 mg cap(s) (CARDIZEM CD, CARTIA XT) 240 mg ORAL DAILYondansetron (PF) 4 mg injection (ZOFRAN) 4 mg INTRAVENOUS q 6 H PRN0.9% NaCl 10 mL 10 mL INTRAVENOUS q 12 H0.9% NaCl 20 mL 20 mL INTRAVENOUS PRNcodeine-guaiFENesin 5-10 mL oral liquid (ROBITUSSIN AC) 5-10 mL ORAL q 6 HPRNdextrose 40 % 15 g (INSTA-GLUCOSE) 15 g ORAL PRNOrglucagon 1 mg injection (GLUCAGEN) 1 mg INTRAMUSCULAR PRNOrdextrose 50% in water 25 mL syringe 12.5 g INTRAVENOUS PRNinsulin lispro injection (rapid acting) (HumaLOG) SUBCUTANEOUS w MEALSinsulin lispro injection (rapid acting) (HumaLOG) SUBCUTANEOUS AT BEDTIMEHYDROcodone 5 mg - acetaminophen 325 mg tablet (NORCO) 1-2 tablet ORAL q 6H PRNmontelukast 10 mg tab(s) (SINGULAIR) 10 mg ORAL AT BEDTIMEmagnesium oxide 400 mg tab(s) (MAG-OX) 400 mg ORAL DAILYspironolactone 25 mg tab(s) (ALDACTONE) 25 mg ORAL BIDhydroCHLOROthiazide 25 mg tab(s) (HYDRODIURIL, ESIDRIX) 25 mg ORAL DAILYiv contrast (radiology procedure) INTRAVENOUS DIRECTED PRNCURRENT ALLERGIES:ALLERGIESAllerge n Reactions- Clindamycin Hives- Macrodantin [Nitrof* Other: See Comments Off-balance- Percocet [Oxycodone* Other: See Comments Nausea- Sulfa (Sulfonamide * Rash, Itching localized rash and itching all over- Zithromax [Azithrom* Rash, Itching localized rash and itching all over- Zenicef [Other] Rash, Itching itching in mouth; localized rash and itching all overPatient Vitals for the past 24 hrs: BP Temp Temp src Pulse Resp SpO2 Sddxcf84/09/17 1621 - - - 80 18 95 % -12/23/16 1532 136/64 36.7 ?C (98.1 ?F) Oral 82 18 95 % -12/23/16 1236 - - - 88 18 - -12/23/16 1224 135/75 36.9 ?C (98.4 ?F) Oral 85 20 97 % -12/23/16 1218 - - - 85 18 95 % -12/23/16 0815 149/73 36.8 ?C (98.2 ?F) Oral 98 20 95 % -12/23/16 0735 - - - 89 18 96 % -12/23/16 0545 - - - - - - 102.7 kg (226 lb 6.4 oz)12/23/16 0423 127/69 36.4 ?C (97.5 ?F) Oral 90 19 96 % -12/23/16 0056 - - - 87 20 - -12/23/16 0046 - - - 85 20 96 % -12/22/16 2324 167/94 37.1 ?C (98.7 ?F) Axillary 92 20 96 % -12/22/165 - - - 80 16 - -12/22/16 1940 122/69 36.9 ?C (98.4 ?F) Axillary 86 18 97 % -12/22/16 1934 - - - 76 16 95 % -12/22/16 1700 - - - 80 16 - -12/22/16 1653 - - - 76 16 96 % -Intake/Output Summary (Last 24 hours) at 12/23/16 1627Last data filed at 12/23/16 1300 Gross per 24 hourIntake 470 mlOutput 0 mlNet 470 mlOBJECTIVEPHYSICAL EXAM:BP 136/64 Pulse 80 Temp (Src) 98.1 (Oral) Resp 18 Ht 5' 2 (1.58m) Wt 226 lb 6.4 oz (102.7kg) SpO2 95% BMI 41.40 kg/(m2).General appearance: Morbidly obese, well appearing, alert, in no acutedistressNose/Sinuses: Nares normal, septum midline, mucosa normal, no drainage orsinus tendernessOropharynx: Lips, mucosa, and tongue normal, teeth and gums normal,oropharynx normalRespiratory: Bilateral scattered rhonchiCardiovascular: Negative. RRR without murmur, gallop, or rubs. No ectopyAbdomen: Soft, non tender, non distended. Normal bowel sounds.Extremities: Normal pulses. No peripheral edema.DATADiagnostic tests reviewed for today's visit, films/specimens werepersonally reviewed by me:Most recent labs and imaging results.CBC, Coags, BMP, Mg, PhosRecent Labs 12/23/1704WBC 16.49* -- -- -- 10.56HB 12.7 -- -- -- 12.1HCT 39.2 -- -- -- 37.8PLT 236 -- -- -- 227NA -- 130* 131* 131* 130*K -- 4.0 4.0 3.9 7.3*CHLOR -- 88* 89* 88* 88*CO2 -- 24 27 25 25BUN -- 52* 52* 40* 42*CREAT -- 1.41* 1.48* 1.38 1.41*GLUC -- 221* 207* 198* 208*CA -- 9.1 9.4 9.4 5.3*Liver Function, Amylase, AND LipaseRecent Labs 12/23/1703TPROT 6.1 6.3 6.2ALB 3.5 3.7 3.6ALT 44 44 39AST 15 15 13ALKPHOS 71 78 70TBILI 0.6 0.5 0.5Cardiac EnzymesABGsSIGNATURE: Jaya Darby Rai, MD PATIENT NAME: Laura SinclairTE: December 23, 2016 : 4:27 PM PAGER/CONTACT #: [phone] Normal [facility] Comp Metabolic Panelon 12-23 Alanine aminotransferase (ALT) 44 U/L Normal 0-45 [facility] Comment on above: Performed By: #### C BCDIF, PT, PTT, CMP, MG1 ####[facility] [address] [place] [address] Albumin 3.5 g/dL Normal 3.5-5.0 [facility] Comment on above: Performed By: #### C BCDIF, PT, PTT, CMP, MG1 ####[facility] [address] [place] [address] Alkaline phosphatase (ALP) 71 U/L Normal 40-150 [facility] Comment on above: Performed By: #### C BCDIF, PT, PTT, CMP, MG1 ####[facility] [address] [place] [address] Anion gap 18 mmol/L High 0-15 [facility] Comment on above: Performed By: #### C BCDIF, PT, PTT, CMP, MG1 ####[facility] [address] [place] [address] Aspartate aminotransferase (AST) 15 U/L Normal 7-40 [facility] Comment on above: Performed By: #### C BCDIF, PT, PTT, CMP, MG1 ####[facility] [address] [place] [address] Bilirubin (total) 0.6 mg/dL Normal 0.0-1.5 [facility] Comment on above: Performed By: #### C BCDIF, PT, PTT, CMP, MG1 ####[facility] [address] [place] [address] Calcium 9.1 mg/dL Normal 8.5-10.5 [facility] Comment on above: Performed By: #### C BCDIF, PT, PTT, CMP, MG1 ####[facility] [address] [place] [address] Chloride 88 mmol/L Low 98-110 [facility] Comment on above: Performed By: #### C BCDIF, PT, PTT, CMP, MG1 ####[facility] [address] [place] [address] CO2 24 mmol/L Normal 23-32 [facility] Comment on above: Performed By: #### C BCDIF, PT, PTT, CMP, MG1 ####[facility] [address] [place] [address] Creatinine 1.41 mg/dL High 0.70-1.40 [facility] Comment on above: Performed By: #### C BCDIF, PT, PTT, CMP, MG1 ####[facility] [address] [place] [address] eGFR (non-black) 46 mL/min/{1.73_m2} Normal [facility] Comment on above: Performed By: #### C BCDIF, PT, PTT, CMP, MG1 ####[facility] [place] [address] eGFR (non-black) 38 . Normal [facility] Comment on above: Result Comment: eGFR (Estimated GFR) Units of measure: mL/min/1.73 meters squaredeGFR is derived from the reexpressed MDRD Study equation using the following parameters: serum creatinine, age, gender and race. The creatinine assay has been calibrated to be traceable to IDMS.An eGFR <60 mL/min/1.73m2 for >3 months is consistent with chronic kidney disease. Refer to KDOQI guidelines for clinical interpretation.In patients with unstable renal function, e.g. those with acute kidney injury, the eGFR may not accurately reflect actual GFR. Performed By: #### C BCDIF, PT, PTT, CMP, MG1 ####[facility] [address] [place] [address] Glucose mass conc 221 mg/dL High 65-100 [facility] Comment on above: Performed By: #### C BCDIF, PT, PTT, CMP, MG1 ####[facility] [address] [place] [address] Potassium molar conc 4.0 mmol/L Normal 3.5-5.0 [facility] Comment on above: Performed By: #### C BCDIF, PT, PTT, CMP, MG1 ####[facility] [address] [place] [address] Protein 6.1 g/dL Normal 6.0-8.4 [facility] Comment on above: Performed By: #### C BCDIF, PT, PTT, CMP, MG1 ####[facility] [address] [place] [address] Sodium 130 mmol/L Low 132-148 [facility] Comment on above: Performed By: #### C BCDIF, PT, PTT, CMP, MG1 ####[facility] [address] [place] [address] Urea nitrogen 52 mg/dL High 8-25 [facility] Comment on above: Performed By: #### C BCDIF, PT, PTT, CMP, MG1 ####[facility] [address] [place] [address] NURSING PROGon 12-23-2016 NURSING PROG HNO ID: [id number] thor: Juli (Germain) Scooby, RNService: (none)Author Type: Registered NurseType: Nursing Progress NoteFiled: 12/23/2016 12:26 PMNote Text: Nursing Progress NotePatient Name: Laura StarkMRN: [id number] Location: [place] [address]/[id number]___ Daily Note:0753: Dr. Nugent is aware that the patient is complaining of bloodydiarrhea. Will place new orders.0800: Assumed care of the patient at 0700. Vital signs are stable.Patient is alert and oriented times three. Heart is regular. Lungs haverhonci. Patient is complaining of a productive cough with yellow sputum.Patient has a satellite project site monitor on. Patient has +1 bilateral lowerextremity edema. Call melgar is within reach. Will continue to monitor thepatient.0907: Collected a CBC from the patient's CIPRIANO PICC line. Patienttolerated the procedure well. CBC was sent to lab.This note was completed by: Juli Almodovar, RN [facility] NUTRITIONon 12-23-2016 NUTRITION HNO ID: [id number] thor: Lamar Cesar) FerroService: Nutrition TherapyAuthor Type: Registered DietitianType: NutritionFiled: 12/23/2016 2:21 PMNote Text:NUTRITION THERAPY REASSESSMENTSERVICE DATE: 12/23/2016SERVICE TIME: 0835RECOMMENDED MALNUTRITION DIAGNOSIS: MODERATE PROTEIN-CALORIE MALNUTRITIONIn the context of Acute Illness or Injury based on:Unintentional Weight Loss: >5% over 1 monthInsufficient Energy Intake: <75% for >7 daysNUTRITION CARE PLAN:Problem, Etiology and Signs/Symptoms:Suboptimal oral intake related to decreased appetite as evidenced by dietrecall, I/O, weight lossIntervention:Continue Regular DietProvide and encourage nutrient/caloric dense foods to help meet estimatedneeds.Reviewed current labs and physician progress notesMonitor and Evaluation:Goal: Meet >75% of estimated needsDischarge Nutrition Recommendations:Diet: Home on regular dietPer HPI: This is a 61-year-old female past medical history of asthma, DVTand PE not currently on any anticoagulation presenting to the ER withcough since October. ?She has seen pulmonology and was admitted to thehospital December 06 and saw infectious disease. ?Her sputum was positivefor Escherichia coli and MRSA. ?Interval History: Reports PO intake around 50%, throat is still soar. Lessmetalic tastePresent Diet Order: RegularNutritional Intake: <75% estimated energy needs over the past 7+ day(s)GI symptoms: early satietyAbdominal Exam: not assessedIs the patient having any pain that is interfering with oral/enteralintake? NoANTHROPOMETRICSHeight: 157.5 cm (5' 2)Admission Weight: 107 kg (236 lb)Current Weight: 102.7 kg (226 lb 6.4 oz)Body mass index is 41.41 kg/(m2). class 3 obesityWeight has decreased by 12.5 kg over 2 months representing 12.2 % weightchange.UBW 257 lbs; per patient was weighting this at the beginning of OctoberLast Wt102/23/16 : 102.7 kg (226 lb 6.4 oz)04/12/16 : 115.2 kg (254 lb)10/04/15 : 113.4 kg (250 lb)02/23/15 : 116.1 kg (256 lb)11/03/14 : 111.1 kg (245 lb)04/02/13 : 96.6 kg (213 lb)02/15/13 : 96.6 kg (213 lb)05/03/12 : 100.7 kg (222 lb)04/28/12 : 99.3 kg (219 lb)02/16/12 : 111.1 kg (245 lb)Dosing Weight: 102.7 kgResting Metabolic Rate: 1544Estimated kilocalorie needs: 3982-1526 kilocalories determined by 10-15kcal/kgEstimated protein needs: 54-80 grams determined by 20% of estimatedkilocalorie needs dosing weightEstimated fluid needs: 5371-3752 milliliters based on 1 mL per kcalNUTRITION FOCUSED PHYSICAL EXAM:Subcutaneous Fat LossOrbital No fat lossTriceps No fat lossMid-axillary at the iliac crest Unable to determine at this timeMuscle Loss Locations:Temporalis No muscle lossPectoralis No muscle lossDeltoids No muscle lossInterosseous No muscle lossLatissimus dorsi, trapezius Unable to determine at this timeQuadriceps No muscle lossGastrocnemius No muscle lossPotential micronutrient deficiency revealed in: No deficiency identifiedEdema: Yes Lower extremities Severe 3 - 4Ascites: NoAssessment of Functional Status: Able to do little activity and spend mostof the day in bed or chair for a duration of 5 daysTemperature Max in 24 hours: Temp (24hrs), Av.8 ?C (98.2 ?F), Min:36.4?C (97.5 ?F), Max:37.1 ?C (98.7 ?F) BP 135/75 Pulse 88 Temp 36.9 ?C (98.4 ?F) (Oral) Resp 18 Ht 157.5cm (5' 2) Wt 102.7 kg (226 lb 6.4 oz) SpO2 97% BMI 41.41 kg/s7[facility] 12/23/1704LUC -- 221*BUN -- 52*CREAT -- 1.41*NA -- 130*K -- 4.0CHLOR -- 88*CO2 -- 24ALB -- 3.5HB 12.7 --HCT 39.2 --WBC 16.49* --Potential Signs of Inflammation: leukocytosis and hyperglycemiaMNT Billing Type: Re-assess/15 min 3 unitsSIGNATURE: Lamar Kaplan RD PATIENT NAME: Laura StarkDATE: December 23, 2016 : 2:17 PM [facility] PLAN OF CAREon 12-23-2016 PLAN OF CARE HNO ID: [id number] thor: Natasha Enciso (Rn) Naldo, RNService: Case ManagementAuthor Type: Registered NurseType: Plan of CareFiled: 12/23/2016 3:49 PMNote Text:MULTIDISCIPLINARY ROUNDSSERVICE DATE: 12/23/2016 ADMISSION DATE: 12/15/2016SERVICE TIME: 3:46 PM ANTICIPATED D/C DATE: 1-2 daysProblem List:ACTIVE PROBLEM LISTBILIARY DYSKINESIAEmbolism and Thrombosis of Unspecified SiteAbnormal Mammogram, UnspecifiedMultinodular GoiterVentral Hernia With ObstructionWound InfectionPe (Pulmonary Embolism)Recurrent Ventral Incisional HerniaWeaknessObesity, Class III, BMI >= 40 (morbid obesity) E66.01Malnutrition of Moderate Degree (Hcc)Attendees Present at Rounds:Motor Tester: NatashaPatient: Laura Charles Nurse: Juli Andrade Discussed on Rounds:Plan of CareAnticipated Discharge Disposition:Jail FacilityLast Vitals: BP 136/64 Pulse 82 Temp (Src) 98.1 (Oral) Resp 18 Ht5' 2 (1.58m) Wt 226 lb 6.4 oz (102.7kg) SpO2 95% BMI 41.40kg/(m2).Facility Has Auth to accept Patient today. [facility]. DrGoyal informed.New problem today bloody diarrhea now with GI consult.Nursing:Bleeding Intervention(s) Plan: Assess for Related Signs/Symptom ofBleeding;Bleeding Precautions;Monitor I AND O;Monitor Vital Signs;Monitorand Record Blood Loss;Monitor Labs: CBC, INR, PTT/PTBleeding Goals/Outcomes: Free of Signs/Symptom Active BleedingBleeding Goal Target Achievement Date: 12/24/16Risk for InfectionIntervention(s) Plan: Assess and Administer Medications;Assess VitalSigns;Assess Signs/Symptom of Infection;Maintain Hand Hygiene;Monitor Labsand CulturesRisk for Infection Goals/Outcomes: Patient Without Signs/Symptoms ofInfectionsRisk For Infection Goal Target Achievement Date: 12/24/16Pain Intervention(s) Plan: Pain Assessment, Management, Reassessment PerScoring ToolPain Goals/Outcomes: Decrease in Pain Level per Scoring Tool;PatientVerbalizes Acceptable Level of Comfort and is Able to Carry Out Activitiesof Daily LivingPain Goal Target Achievement Date: 12/24/16Respiratory Alteration Intervention(s) Plan: Apnea Assessment andMonitoringRespiratory Alteration Goals/Outcomes: Decrease of Respiratory DistressRespiratory Goal Target Achievement Date: 12/24/16DOCUMENTED BY: Natasha Hitchcock RN PATIENT NAME: Laura StarkDATE: December 23, 2016 : 3:46 PM CSN: [id number] [facility] PROGRESSon 12-23-2016 PROGRESS HNO ID: [id number] thor: Kiara Watsone: General Internal MedicineAuthor Type: PhysicianType: Progress NotesFiled: 12/23/2016 1:07 PMNote Text:INTERNAL MEDICINE PROGRESS NOTEADMITTING PHYSICIAN: Kiara ResendizCHIALENA COMPLAINT: Having more cough and wheezing today, able toexpectorate now, have loose stools with blood.Current Facility-Administered Medications:hydrocortisone 25 mg suppository (HEMORRHOIDAL HC) 25 mg RECTAL q 12 Hinsulin NPH human 9 Units injection (intermediate acting) (NovoLIN N,HumuLIN N) 9 Units SUBCUTANEOUS BIDmethylPREDNISolone sod succinate(PF) 60 mg injection (Solu-MEDROL) 60 mgINTRAVENOUS q 12 Halbuterol 2.5 mg /3 mL (0.083 %) 2.5 mg (PROVENTIL) 2.5 mg INHALATION q 4H while awakealbuterol 2.5 mg /3 mL (0.083 %) 2.5 mg (PROVENTIL) 2.5 mg INHALATION q 2H PRNpantoprazole DR 40 mg tab(s) (PROTONIX) 40 mg ORAL BID AC (0600/1600)guaiFENesin 1,200 mg ER tab(s) (MUCINEX) 1,200 mg ORAL q 12 Hbudesonide 0.5 mg/2 mL 0.5 mg (PULMICORT) 0.5 mg INHALATION BIDmetHIMazole 5 mg tab(s) (TAPAZOLE) 5 mg ORAL DAILYmorphine 1-2 mg injection 1-2 mg INTRAVENOUS q 4 H PRNdigoxin 0.25 mg tab(s) (LANOXIN) 0.25 mg ORAL DAILYdiltiazem CD 240 mg cap(s) (CARDIZEM CD, CARTIA XT) 240 mg ORAL DAILYondansetron (PF) 4 mg injection (ZOFRAN) 4 mg INTRAVENOUS q 6 H PRN0.9% NaCl 10 mL 10 mL INTRAVENOUS q 12 H0.9% NaCl 20 mL 20 mL INTRAVENOUS PRNcodeine-guaiFENesin 5-10 mL oral liquid (ROBITUSSIN AC) 5-10 mL ORAL q 6 HPRNdextrose 40 % 15 g (INSTA-GLUCOSE) 15 g ORAL PRNOrglucagon 1 mg injection (GLUCAGEN) 1 mg INTRAMUSCULAR PRNOrdextrose 50% in water 25 mL syringe 12.5 g INTRAVENOUS PRNinsulin lispro injection (rapid acting) (HumaLOG) SUBCUTANEOUS w MEALSinsulin lispro injection (rapid acting) (HumaLOG) SUBCUTANEOUS AT BEDTIMEHYDROcodone 5 mg - acetaminophen 325 mg tablet (NORCO) 1-2 tablet ORAL q 6H PRNmontelukast 10 mg tab(s) (SINGULAIR) 10 mg ORAL AT BEDTIMEmagnesium oxide 400 mg tab(s) (MAG-OX) 400 mg ORAL DAILYspironolactone 25 mg tab(s) (ALDACTONE) 25 mg ORAL BIDhydroCHLOROthiazide 25 mg tab(s) (HYDRODIURIL, ESIDRIX) 25 mg ORAL DAILYiv contrast (radiology procedure) INTRAVENOUS DIRECTED PRNINTERVAL HISTORY OF PRESENT ILLNESS: Remains in NSR. No n/v/d.No orthopnea, pnd,cpain, fever, chills.Consult notes reviewed.OBJECTIVEPHYSICAL EXAM:Blood pressure 135/75, pulse 88, temperature 36.9 ?C (98.4 ?F),temperature source Oral, resp. rate 18, height 157.5 cm (5' 2), .7 kg (226 lb 6.4 oz), SpO2 97 %.Body mass index is 41.41 kg/(m2).GENERAL: Morbidly Obese, Alert, no DistressNECK: SuppleLUNGS: decreased a/e, occ ronchi.CARDIAC: s1s2: regABDOMEN: Soft, nontenderEXTREMITIES: Extremities normal, no deformities, edema, clubbing or skindiscoloration. Good capillary refill.NEURO: Alert, oriented X 3, Gait normal. Non-focal. Reflexes normal andsymmetric. Sensation grossly intact.PULSES: 2+ radialDATA:Diagnostic tests reviewed for today's visit:Most recent labs and imaging results.ASSESSMENT/PLANAct raavind Problems: Acute Asthma exacerbation with HCAP? recent sputum cx with MRSA and E.coli: continue iv steroids, Continue nebs. Noted Pulmonary eval. Continuecodeine cough syrup, Weakness POA: Yes Assessment AND Plan: due to above. Obesity, Class III, BMI >= 40 (morbid obesity) E66.01 Assessment AND Plan: encourage wt. Loss. Hyperglycemia due to steroids: Continue basal and SSI.PAF:appreciate Endo eval for hyperthyroidism,Appreciate : Cardio eval.Diarrhea/ GI bleed;Hold ASA/Eliquis,Gi eval,Stool for cd pcr.Noted PT/OT eval.D/w ID.SIGNATURE: Kiara Nugent MD PATIENT NAME: Laura Stark PAGER/CONTACT #: [facility] THERAPY NTon 12-23-2016 THERAPY NT HNO ID: [id number] thor: Juli (Pt) KapteinService: Physical TherapyAuthor Type: Physical TherapistType: Therapy (PT/OT/Speech/Resp)Filed: 12/23/2016 3:20 PMNote Text:Physical Therapy TreatmentSERVICE DATE: 12/23/2016SERVICE TIME: 1410 to 1449ROOM: [id number] Discharge Disposition: Subacute/SNFRecommended Discharge Disposition Comments: Patient currently much belowfunctional baseline with all functional mobility, requires cues/assistthroughout for safety and noted to fatigue quickly with all tasks; patientis + high fall risk, indicates need for continued PT post-acute stay inS setting to improve safety, strength and independence with all mobilityJustification For Post Acute Needs: Cognition intact;Good familysupport;Good premorbid functional status;Good sitting tolerance;Living thecommunity premorbidly;Motivated;Will ing to participate;May not toleratehigher intensity programing;Need for assistance may exceed supportavailableAnticipate d Discharge Needs: Physical Assist at Home;EquipmentPhysical Assist at Home for:Ambulation;Transfers;C leaning;Laundry;Meals;Stai rs;Safety;SelfCare;Shoppin g;TransportationRecommende d Discharge Equipment: No equipment needs anticipated (with SNFdischarge anticipated)PT Recommendations to Nursing: Ambulate with device;To bathroom;Withassist of 1 person;OOB for meals;Other: See Comment (reinforce energyconservation techniques)Ambulation Device: Wheeled Walker (gait belt)PT 6 Clicks Score: 18Precautions/Activity Restrictions: Diabetic;FallRisk;Lines/Tu bes/Drains;Other: See Comments (universal)Precaution/Acti vity Restriction Comments: no BP R UE, PICC lineASSESSMENT :Patient noted to be able to tolerate increased ambulation distance thissession as well as increased repetitions of seated exercises in chair asbelow. Patient remains highly motivated to participate and improve,continued decreased activity tolerance noted. Patient continues torequire cues/assist and rest breaks throughout for safe completion of allmobility. Continues to demonstrate generalized weakness throughout B LEsand need for use of assistive device for safe mobility. Continue toprogress with initiation of standing exercises as safe and able totolerateTolerated Full Session (however is fatigued post-)Physical Therapy Problem List: Education Deficit;Pain;SafetyDeficit s;Decreased Activity Tolerance;Decreased Strength;FunctionalMobilit y Impairment;Balance Impaired;Sensory DeficitPatient /Caregiver Goals: Go To Rehab (if needed, open to home if safe aswell)Goals for Plan of Care:Able to perform HEP with: Supervision (B LEs x 15-20 reps with progress tostand to (+) strength)Transfer supine to/from sit with: Supervision (without use of bedcontrols/rails to emulate home)Transfer sit to/from stand with: Supervision (with LRAD to increase safetywith OOB activity)Ambulate with: SupervisionDistance: 100-150 feetDevice: (LRAD)Ambulate up and down curb step with: Stand By AssistanceDevice: (LRAD )Ambulate up and down steps with: Stand By AssistanceNumber of steps: 4Device: Rail (and LRAD to ensure safety entering home)Goal: Improve static and dynamic standing balance with LRAD to require nomore than supervision to increase safety with all standing activities andreduce fall riskGoal: -Patient to verbalize and demonstrate understanding of energyconservation techniquesProgress Toward Goals: Progressing as expectedRehab Potential: GoodPLAN:Treatment Frequency (times per week): 5 Current admissionTreatment Interventions: Education;Energy Conservation Training;JointMobility;Str engthening;Functional Mobility Training;BalanceTraining;N euromuscular Re-educationPlan of Care developed with: PatientTREATMENT INTERVENTIONS:Therapy Diagnosis: Reduced mobility-other;Muscle Weakness(generalized);Unst eadiness on feet;General symptoms and signs-otherInterventions Provided: Evaluation;Therapeutic Exercise(32059);Therapeuti c Activity (68698);Gait Training (58178)Therapeutic Exercise (57303) Treatment Minutes: 161 unitSkilled Intervention(s): Instruction in therapeutic exerciseVerbal and tactile cuing providedFacilitation of muscle control, optimal recruitment and alignmentCompletes 20 repetitions (unless otherwise noted) of the following seatedtherapeutic exercises on B LE (unless otherwise indicated) with assistanceas indicated sitting in chair: heel/toe raises bilaterally x 3-5repetitions for teach back, hip flexion 2 sets x 10 repetitions, LAQs (noassistance), lightly resisted isometric hip abduction bilaterally, lightlyresisted isometric hip adduction bilaterally. Isometrics 2 sets x 10repetitions secondary to fatigue. Completes all with very slowed pacing, +time verbal, visual and tactile cues initially and prn thereafter fortechnique and for patient to assist throughout as able. Appropriatelyfollows cues throughout. Rest breaks provided secondary to fatigue,generalized muscle weakness/fatigue.Education to patient on benefits/rationale for exercisesTherapeutic Activity (69661) Treatment Minutes: 81 unitSkilled Intervention(s): Re-education/education to patient onrecommendation for balancing activity with rest, relates was up in chairthroughout the day yesterday and difficulty getting up in PM to return tobed, recommendation for rest in chair and bed with pt understandingconsequences of prolonged bed rest but also need to avoid overdoing itEducation/re-education on continued discharge recommendation of SNF(discussed also possible progression to possible acute rehab anddifferences SNF. Vs acute rehab), safe techniques/hand placement forspouse to assist pt with completion of seated exercises, importance of LEAROM throughout the day to prevent decline and for circulation benefitsexplained, ambulation/mobilization with staff pharmacist hospital to prevent furtherdecline, sitting up in chair throughout the day especially for all mealsGait Training (85008) Treatment Minutes: 151 unitSkilled Intervention(s): Instruction in sit to stand technique with properhand placement and body positioning at edge of bed/chair, Instruction instand to sit technique with LE's touching chair/bed and reaching back forsurface, Instruction in correction of gait deviations, Instruction in useof equipment, cues for sequence and pattern and See below for additionalcues and assistCompletes x 5/7 trials consecutively for transfer training and alsofunctional quadriceps strengtheningTotal Timed Code Treatment Minutes: 39Total Treatment Time (minutes): 39FUNCTIONAL G CODE:PT 6 Clicks Score: 18 (12/23/16 1410)Mobility: Walking and Moving Around Current Status (G8978): CK ()Mobility: Walking and Moving Around Goal Status (G8979): CJ ()Based on clinical assessment and the score on the 6 Clicks FunctionalAssessment Tool, the G code and corresponding severity modifiers aredocumented above.SUBJECTIVE:Current Hospital Course: Chart reviewed and no significant medical updatesrelevant to therapy were notedPatient with onset of bloody diarrhea yesterday PM/this AM, GI consultedPatient Report: Patient sitting up in bedside recliner chair veda,states I feel good, I walked a little bit this am, just reallytired; agreeable to PT evaluation/treatment, ok per RN for PTHome EnvironmentPatient Lives With: Family (spouse and disabled child, pt primarycaregiver for dtr)Assistance Available: PRN (spouse works, to take FMLA to care for dtrinitially)Entry To Home: Stairs;With RailNumber Of Stairs Into Home: 4Number Of Stairs To Bed/Bath: 0Tub/Shower Type: tub showerLaundry: basement level, spouse completes, full flight with 1 rail tounc health chathamEqument Owned: Commode-Raised;Grab Bars-Shower;Hand Held Shower;StandardWalker;Show er Chair (raised toilet seat with arms)Prior Functional Level: Within Functional Limits;Required AssistanceAssistance Required With: Other: See CommentPrior Functional Level Comments: Patient with decline in mobility for thepast 10 weeks with gradual debility, reports recent difficulty with allmobility and 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; 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, fullyindep with amb, ADLs, IADLs, driving, primary caregiver for disableddaughterOBJECTIVE: CURRENT FUNCTIONAL STATUS:Current Functional Mobility Assist Level Additional InformationRollingSupine to Sit (not tested; up in bedside recliner chair at approach)Sit to Supine (returns to bedside recliner chair post-)Scooting Contact Guard Assistance (to SBA forward/retro in chair) Minimalverbal cues for effective use of B UEs for weight shift, deep breathing,noted easily HAWTHORNE throughoutSit to Stand Contact Guard Assistance (up to FWW x 7 trials total) PRNverbal cues for safe hand placement, safe approachStand to Sit Contact Guard Assistance (from FWW to chair x 7 trials total)See aboveBed to ChairToilet/CommodeGait Contact Guard Assistance Gait Device: Wheeled Walker (gait belt andchair follow) Gait Distance (feet): 100 feet x 2, 70 feet x 2Stairs (unsafe for progression at this time)Curb StepCar TransferGeneral Gait Deviations: Trina decreased;Step length decreased;Flexedtrunk posture;Other: See comment (fatigues quickly, frequent standing restbreaks d/t fatigue)Verbal cues for upright posture, safety with turning--shakiness noted attimes throughout, very slow pacing, apprehensive regarding functionalweakness throughout, no buckling or LOB/near LOB occurs however -Patient sitting up in bedside recliner chair per requestpost-treatment, call melgar and personal belongings in reach, RN notified ofpatient status, denies needs at this time.-Gait belt in place for safety with all functional mobility-Lines/Tubes/Drain s: Intact and as follows: telemetry,PICC R UEBalance: Static Sitting;Static Standing;Dynamic StandingStatic Sitting Balance: Supervision (sitting up in chair )Static Standing Balance: Contact Guard Assistance (to SBA with B UEs onFWW)Dynamic Standing Balance: Contact Guard Assistance (with B UEs on FWW)Please see discipline specific clinical documentation flowsheet forcomplete details for this therapy evaluation/treatment.SIGNA TURE: Juli Bravo PT PATIENT NAME: Laura SinclairTE: December 23, 2016 : 3:09 PM PAGER/CONTACT #: [phone] THERAPY NT HNO ID: [id number] thor: Juli (Pt) LawrenceService: Physical TherapyAuthor Type: Physical TherapistType: Therapy (PT/OT/Speech/Resp)Filed: 12/23/2016 12:23 PMNote Text:PHYSICAL THERAPY MISSED VISITSERVICE DATE: 12/23/2016SERVICE TIME: 1119 to 1119ROOM: [id number] Treatment. Patient not seen due to Another service at bedside(GI FANS CLERK at bedside with patient). Will re-attempt when schedule permits.SIGNATURE: Juli Bravo PT PATIENT NAME: Laura SinclairTE: December 23, 2016 : 12:22 PM PAGER/CONTACT #: [phone] XR ABDOMEN 1V SUPINEon 12-23 XR ABDOMEN 1V SUPINE * * *Final Report* * *DATE OF EXAM: Dec 23 2016 3:39PM MDX 5289 - XR ABDOMEN 1V SUPINE / REASON: Constipation * * * * Physician Interpretation * * * * KUB:INDICATION: ConstipationTECHNIQUE: XR ABDOMEN 1V SUPINECOMPARISON:FINDINGS: No retained stool is seen to suggest constipation. The bowel gas pattern is nonobstructive. No abnormal mass or calcification is seen. There is degenerative scoliosis in the lumbar spine.IMPRESSION: No acute abnormalityTranscriptionis t: PSCB Transcribe Date/Time: Dec 23 2016 4:29PDictated by : CHRISTIANO LORENZO MDThis examination was interpreted and the report reviewed and electronically signed by: CHRISTIANO LORENZO MD on Dec 23 2016 4:30PM [id number] [facility] CONSULT PROGon 12-22-2016 CONSULT PROG HNO ID: [id number] thor: PARVIN Roldanervice: Infectious DiseaseAuthor Type: PhysicianType: Consult Progress NoteFiled: 12/22/2016 9:51 PMNote Text:INFECTIOUS DISEASE PROGRESS NOTEPatient Name: Laura Stark HISTORY:Stable on floor. Worse today. More cough and wheezing. No fevers. Noleucocytosis. Still weak. No diarrhea. ROS checked in details. All qsanswered.Patient Active Hospital Problem List: Weakness (12/16/2016) Obesity, Class III, BMI >= 40 (morbid obesity) E66.01 (12/16/2016) Malnutrition of moderate degree (HCC) (12/16/2016)ASSESSMENT:MRSA and E coli HCAP. [facility] woundAcute respiratory failureFailed OP PO abx treatment w doxyWeaknessObesity, Class III, BMI >= 40Malnutrition of moderate degreeRECOMMENDATIONS:Disc ontinue vancomycin and ceftriaxoneSputum cxDiscussed w Dr Austin and Dr Gamez CXRVEST therapyIf CXR worse, may need to start meropenemSupportive careWean [id number] careMEDICATIONS: reviewed.Current hospital medications:insulin NPH human 9 Units injection (intermediate acting) (NovoLIN N,HumuLIN N) 9 Units SUBCUTANEOUS BIDmethylPREDNISolone sod succinate(PF) 60 mg injection (Solu-MEDROL) 60 mgINTRAVENOUS q 12 Halbuterol 2.5 mg /3 mL (0.083 %) 2.5 mg (PROVENTIL) 2.5 mg INHALATION q 4H while awakealbuterol 2.5 mg /3 mL (0.083 %) 2.5 mg (PROVENTIL) 2.5 mg INHALATION q 2H PRNpantoprazole DR 40 mg tab(s) (PROTONIX) 40 mg ORAL BID AC (0600/1600)guaiFENesin 1,200 mg ER tab(s) (MUCINEX) 1,200 mg ORAL q 12 Hbudesonide 0.5 mg/2 mL 0.5 mg (PULMICORT) 0.5 mg INHALATION BIDapixaban 5 mg tab(s) (ELIQUIS) 5 mg ORAL BIDaspirin, enteric coated 81 mg tab(s) (ASPIRIN, ENTERIC COATED) 81 mg ORALDAILYmetHIMazole 5 mg tab(s) (TAPAZOLE) 5 mg ORAL DAILYmorphine 1-2 mg injection 1-2 mg INTRAVENOUS q 4 H PRNdigoxin 0.25 mg tab(s) (LANOXIN) 0.25 mg ORAL DAILYpolyethylene glycol 3350 17 g packet (MIRALAX, GLYCOLAX) 17 g ORAL DAILYdiltiazem CD 240 mg cap(s) (CARDIZEM CD, CARTIA XT) 240 mg ORAL DAILYondansetron (PF) 4 mg injection (ZOFRAN) 4 mg INTRAVENOUS q 6 H PRN0.9% NaCl 10 mL 10 mL INTRAVENOUS q 12 H0.9% NaCl 20 mL 20 mL INTRAVENOUS PRNcodeine-guaiFENesin 5-10 mL oral liquid (ROBITUSSIN AC) 5-10 mL ORAL q 6 HPRNdextrose 40 % 15 g (INSTA-GLUCOSE) 15 g ORAL PRNglucagon 1 mg injection (GLUCAGEN) 1 mg INTRAMUSCULAR PRNdextrose 50% in water 25 mL syringe 12.5 g INTRAVENOUS PRNinsulin lispro injection (rapid acting) (HumaLOG) SUBCUTANEOUS w MEALSinsulin lispro injection (rapid acting) (HumaLOG) SUBCUTANEOUS AT BEDTIMEHYDROcodone 5 mg - acetaminophen 325 mg tablet (NORCO) 1-2 tablet ORAL q 6H PRNmontelukast 10 mg tab(s) (SINGULAIR) 10 mg ORAL AT BEDTIMEmagnesium oxide 400 mg tab(s) (MAG-OX) 400 mg ORAL DAILYspironolactone 25 mg tab(s) (ALDACTONE) 25 mg ORAL BIDhydroCHLOROthiazide 25 mg tab(s) (HYDRODIURIL, ESIDRIX) 25 mg ORAL DAILYiv contrast (radiology procedure) INTRAVENOUS DIRECTED PRNPHYSICAL EXAM:Vital signs: BP 122/69 Pulse 80 Temp 36.9 ?C (98.4 ?F) (Axillary) Resp 16 Ht 157.5 cm (5' 2) Wt 101.2 kg (223 lb 1.7 oz) SpO2 97% BMI 40.81 kg/m2Temp (24hrs), Av.7 ?C (98 ?F), Min:36.5 ?C (97.7 ?F), Max:36.9 ?C(98.4 ?F)General: alert, oriented, NADLungs: bilaterally clear to auscultationHeart: regular rate and rhythmAbdomen: soft, non tender, non distended, BS+Extremities: no edemaNo rashesNo joint inflammationNeck suppleLines okNo CVATLabs:Recent Labs 12/21/1704WBC -- -- 10.56HB -- -- 12.1HCT -- -- 37.8PLT -- -- 227NA 131* 131* 130*K 4.0 3.9 7.3*CHLOR 89* 88* 88*CO2 27 25 25BUN 52* 40* 42*CREAT 1.48* 1.38 1.41*Microbiology data: reviewedImaging data: Du Mcginnis [phone] [facility] CONSULT PROG HNO ID: [id number] thor: Jaya Darby RaiService: Pulmonary DiseaseAuthor Type: PhysicianType: Consult Progress NoteFiled: 12/22/2016 7:44 PMNote Text: RESPIRATORY INSTITUTEPULMONARY MEDICINEIN-PATIENT CONSULT PROGRESS NOTESERVICE DATE: 12/22/2016ASSESSMENT:Asthma with acute exacerbationBilateral atelectasisRecent sputum (+) E coli and MRSA ([facility] - 12/06/16)Paroxysmal atrial fibrillation with RVRRemote history of DVT/PEMorbid obesitySuspected OSARECOMMENDATIONS:Change nebulized duoneb to albuterol scheduled and PRN.Increase SoluMedrol to 60 mg every 12 hours.Antibiotics as per ID.Mucinex 1200 mg every 12 hours.Pulmicort 0.5 nebulized BIDProtonix dose to 40 mg PO BIDBronchopulmonary hygieneCheck peak flows pre and post treatmentOccupational therapy evaluation and treatmentCheck CXRIf no clinical improvement with above measures, will consider bronchoscopyPlan discussed in detail with patient, RN and primary and ID attendings.Patient verbalizes understanding and is in agreement with the currentmanagement plan.Total time spent in patient care includes but is not limited to patient/family discussions, collaborative discussions with other healthcareproviders, review of medical records, review of laboratory tests,radiology images/ results, microbiology and pathology data.Virgen Voss Rai, Respiratory InstituteThe Bellevue HospitalPager #[phone] COMPLAINT: Shortness of breathINTERVAL HPI:Laura Stark is a 61 year old female status sinceprevious days visit is feeling slightly more short of breath. No fevers,chills, night sweats, chest pain, abd pain or leg swellingMEDICATIONS:Hermilo briscoe Facility-Administered Medications:insulin NPH human 9 Units injection (intermediate acting) (NovoLIN N,HumuLIN N) 9 Units SUBCUTANEOUS BIDmethylPREDNISolone sod succinate(PF) 60 mg injection (Solu-MEDROL) 60 mgINTRAVENOUS q 12 Halbuterol 2.5 mg /3 mL (0.083 %) 2.5 mg (PROVENTIL) 2.5 mg INHALATION q 4H while awakealbuterol 2.5 mg /3 mL (0.083 %) 2.5 mg (PROVENTIL) 2.5 mg INHALATION q 2H PRNpantoprazole DR 40 mg tab(s) (PROTONIX) 40 mg ORAL BID AC (0600/1600)guaiFENesin 1,200 mg ER tab(s) (MUCINEX) 1,200 mg ORAL q 12 Hbudesonide 0.5 mg/2 mL 0.5 mg (PULMICORT) 0.5 mg INHALATION BIDapixaban 5 mg tab(s) (ELIQUIS) 5 mg ORAL BIDaspirin, enteric coated 81 mg tab(s) (ASPIRIN, ENTERIC COATED) 81 mg ORALDAILYmetHIMazole 5 mg tab(s) (TAPAZOLE) 5 mg ORAL DAILYmorphine 1-2 mg injection 1-2 mg INTRAVENOUS q 4 H PRNdigoxin 0.25 mg tab(s) (LANOXIN) 0.25 mg ORAL DAILYpolyethylene glycol 3350 17 g packet (MIRALAX, GLYCOLAX) 17 g ORAL DAILYdiltiazem CD 240 mg cap(s) (CARDIZEM CD, CARTIA XT) 240 mg ORAL DAILYondansetron (PF) 4 mg injection (ZOFRAN) 4 mg INTRAVENOUS q 6 H PRN0.9% NaCl 10 mL 10 mL INTRAVENOUS q 12 H0.9% NaCl 20 mL 20 mL INTRAVENOUS PRNcodeine-guaiFENesin 5-10 mL oral liquid (ROBITUSSIN AC) 5-10 mL ORAL q 6 HPRNdextrose 40 % 15 g (INSTA-GLUCOSE) 15 g ORAL PRNOrglucagon 1 mg injection (GLUCAGEN) 1 mg INTRAMUSCULAR PRNOrdextrose 50% in water 25 mL syringe 12.5 g INTRAVENOUS PRNinsulin lispro injection (rapid acting) (HumaLOG) SUBCUTANEOUS w MEALSinsulin lispro injection (rapid acting) (HumaLOG) SUBCUTANEOUS AT BEDTIMEHYDROcodone 5 mg - acetaminophen 325 mg tablet (NORCO) 1-2 tablet ORAL q 6H PRNmontelukast 10 mg tab(s) (SINGULAIR) 10 mg ORAL AT BEDTIMEmagnesium oxide 400 mg tab(s) (MAG-OX) 400 mg ORAL DAILYspironolactone 25 mg tab(s) (ALDACTONE) 25 mg ORAL BIDhydroCHLOROthiazide 25 mg tab(s) (HYDRODIURIL, ESIDRIX) 25 mg ORAL DAILYiv contrast (radiology procedure) INTRAVENOUS DIRECTED PRNCURRENT ALLERGIES:ALLERGIESAllerge n Reactions- Clindamycin Hives- Macrodantin [Nitrof* Other: See Comments Off-balance- Percocet [Oxycodone* Other: See Comments Nausea- Sulfa (Sulfonamide * Rash, Itching localized rash and itching all over- Zithromax [Azithrom* Rash, Itching localized rash and itching all over- Zenicef [Other] Rash, Itching itching in mouth; localized rash and itching all overPatient Vitals for the past 24 hrs: BP Temp Temp src Pulse Resp SpO2 Paeije70/08/17 1700 - - - 80 16 - -12/22/16 1653 - - - 76 16 96 % -12/22/16 1607 144/81 36.8 ?C (98.2 ?F) Oral 84 18 97 % -12/22/16 1155 - - - 92 18 - -12/22/16 1145 - - - 91 20 96 % -12/22/16 1118 149/77 36.5 ?C (97.7 ?F) Oral 90 19 97 % -12/22/16 0816 149/66 36.5 ?C (97.7 ?F) Oral 85 18 95 % -12/22/16 0801 - - - 88 - - -12/22/16 0750 - - - 86 18 96 % -12/22/16 0422 148/52 36.6 ?C (97.8 ?F) Oral 80 19 94 % 101.2 kg (223 lb1.7 oz)12/22/16 0000 145/78 36.7 ?C (98 ?F) Temporal Art 75 20 97 % -12/21/16 2042 140/80 36.4 ?C (97.5 ?F) Temporal Art 89 19 97 % -12/21/16 1950 - - - 88 20 96 % -Intake/Output Summary (Last 24 hours) at 12/22/16 1934Last data filed at 12/22/16 1700 Gross per 24 hourIntake 390 mlOutput 0 mlNet 390 mlOBJECTIVEPHYSICAL EXAM:BP 144/81 Pulse 80 Temp (Src) 98.2 (Oral) Resp 16 Ht 5' 2 (1.58m) Wt 223 lb 1.7 oz (101.2kg) SpO2 96% BMI 40.80 kg/(m2).General appearance: Morbidly obese, well appearing, alert, in no acutedistressNose/Sinuses: Nares normal, septum midline, mucosa normal, no drainage orsinus tendernessOropharynx: Lips, mucosa, and tongue normal, teeth and gums normal,oropharynx normalRespiratory: Bilateral scattered rhonchi and wheezingCardiovascular: Negative. RRR without murmur, gallop, or rubs. No ectopyAbdomen: Soft, non tender, non distended. Normal bowel sounds.Extremities: Normal pulses. No peripheral edema.DATADiagnostic tests reviewed for today's visit, films/specimens werepersonally reviewed by me:Most recent labs and imaging results.CBC, Coags, BMP, Mg, PhosRecent Labs 12/21/1704WBC -- -- 10.56HB -- -- 12.1HCT -- -- 37.8PLT -- -- 227NA 131* 131* 130*K 4.0 3.9 7.3*CHLOR 89* 88* 88*CO2 27 25 25BUN 52* 40* 42*CREAT 1.48* 1.38 1.41*GLUC 207* 198* 208*CA 9.4 9.4 5.3*Liver Function, Amylase, AND LipaseRecent Labs 12/21/1704TPROT 6.3 6.2 6.0ALB 3.7 3.6 3.6ALT 44 39 39AST 15 13 14ALKPHOS 78 70 69TBILI 0.5 0.5 0.6Cardiac EnzymesABGsSIGNATURE: Jaya Darby Rai, MD PATIENT NAME: Laura StarkDATE: December 22, 2016 : 7:34 PM PAGER/CONTACT #: [phone] [facility] CONSULT PROG HNO ID: [id number] thor: Mia HasanService: EndocrinologyAuthor Type: PhysicianType: Consult Progress NoteFiled: 12/22/2016 11:58 AMNote Text:DIABETES PROGRESS NOTEPATIENT NAME: Laura StarkMRN: [id number] DATE: 12/22/2016ASSESSMENT AND PLAN Ms. Stark is a 61 year old female admitted to the hospital with A.fiband Hyperthyroidism1) Hyperthyroidism:Likely Graves disease vs toxic nodulePatient presented with new onset A.FibTSI is pendingRecently underwent CT with contrast, therefore, will not able to do RAIuptake/scan at this timeContinue Methimazole 5 mg daily2) Thyroid nodule:MNG with dominant left thyroid nodulePer pt she had US guided FNA of this nodule, [facility] and if needed consider US guided FNA once hyperthyroid and Afib isunder control as outpatient?3) steroid induced hyperglycemia:BG continue to be above goalIncrease NPH to 9 units BID while she is on IV solumedrolMonitor accucheck AC/HSNotify Endocrinology if BG > 200 or < 80.Will continue to follow the patient and make further recommendationsaccordingly .Interval HPIDoing better, no new complaintsHPI: Patient reports that she has been experiencing A.tachycardia for thepast 1 yearMentions that thyroid labs have been checked in the past and were alwaysnormalFew years ago, she was found to have left thyroid nodule, FNA was benign.Thyroid labs at the time of this hospitalization were consistent with mildhyperthyroidism.PAST MEDICAL HISTORY:PAST MEDICAL HISTORYDiagnosis Date- DVT (deep venous thrombosis) (HCC) 1995 Rt lower leg- PE (pulmonary embolism)- Unspecified asthma(493.90)- Unspecified essential hypertensionCURRENT MEDICATION:Current Facility-Administered Medications:albuterol 2.5 mg /3 mL (0.083 %) 2.5 mg (PROVENTIL) 2.5 mg INHALATION q 4H while awake Jaya Darby Austin 2.5 mg at 12/22/16 0750albuterol 2.5 mg /3 mL (0.083 %) 2.5 mg (PROVENTIL) 2.5 mg INHALATION q 2H PRN Jaya Darby Raipantoprazole DR 40 mg tab(s) (PROTONIX) 40 mg ORAL BID AC (0600/1600)Jaya Darby Austin 40 mg at 12/22/16 0526insulin NPH human 7 Units injection (intermediate acting) (NovoLIN N,HumuLIN N) 7 Units SUBCUTANEOUS BID Kamaljit Mima 7 Units at 12/22/16 0907guaiFENesin 1,200 mg ER tab(s) (MUCINEX) 1,200 mg ORAL q 12 H Elvia (Pa)Movens 1,200 mg at 12/22/16 0905budesonide 0.5 mg/2 mL 0.5 mg (PULMICORT) 0.5 mg INHALATION BID HardeepSingh Austin 0.5 mg at 12/22/16 0750apixaban 5 mg tab(s) (ELIQUIS) 5 mg ORAL BID Yatish Jovanna 5 mg at 084113drcygwf, enteric coated 81 mg tab(s) (ASPIRIN, ENTERIC COATED) 81 mg ORALDAILY Yatish Jovanna 81 mg at 12/22/16 0904metHIMazole 5 mg tab(s) (TAPAZOLE) 5 mg ORAL DAILY Mia Hasan 5 mg at102/22/16 0905morphine 1-2 mg injection 1-2 mg INTRAVENOUS q 4 H PRN Qarab Jon Syed2 mg at 12/19/16 1510digoxin 0.25 mg tab(s) (LANOXIN) 0.25 mg ORAL DAILY Qarab Jon Syed0.25 mg at 12/22/16 0905polyethylene glycol 3350 17 g packet (MIRALAX, GLYCOLAX) 17 g ORAL DAILYYatish Jovanna 17 g at 12/22/16 0906diltiazem CD 240 mg cap(s) (CARDIZEM CD, CARTIA XT) 240 mg ORAL DAILYQarab Jon Jeb 240 mg at 12/22/16 0905methylPREDNISolone sod succinate(PF) 40 mg injection (Solu-MEDROL) 40 mgINTRAVENOUS q 12 H Yatish Jovanna 40 mg at 12/22/16 0906ondansetron (PF) 4 mg injection (ZOFRAN) 4 mg INTRAVENOUS q 6 H PRN YatishGoyal0.9% NaCl 10 mL 10 mL INTRAVENOUS q 12 H Yatish Jovanna 10 mL at 9954147.9% NaCl 20 mL 20 mL INTRAVENOUS PRN Yatish Jovanna 20 mL at 12/19/16 1445codeine-guaiFENesin 5-10 mL oral liquid (ROBITUSSIN AC) 5-10 mL ORAL q 6 HPRN Yatish Goyaldextrose 40 % 15 g (INSTA-GLUCOSE) 15 g ORAL PRN Yatish GoyalOrglucagon 1 mg injection (GLUCAGEN) 1 mg INTRAMUSCULAR PRN Yatish GoyalOrdextrose 50% in water 25 mL syringe 12.5 g INTRAVENOUS PRN Yatish Goyalinsulin lispro injection (rapid acting) (HumaLOG) SUBCUTANEOUS w MEALSYatish Jovanna 4 Units at 12/22/16 0907insulin lispro injection (rapid acting) (HumaLOG) SUBCUTANEOUS AT BEDTIMEYatish Jovanna 2 Units at 12/21/16 2104HYDROcodone 5 mg - acetaminophen 325 mg tablet (NORCO) 1-2 tablet ORAL q 6H PRN Yatish Jovanna 2 tablet at 12/18/16 0436cefTRIAXone 1 g in sterile water 10 mL (ROCEPHIN) 1 g INTRAVENOUS q 24 HYatish Jovanna 1 g at 12/22/16 0906montelukast 10 mg tab(s) (SINGULAIR) 10 mg ORAL AT BEDTIME Yatish Jovanna 10mg at 12/21/16 2046magnesium oxide 400 mg tab(s) (MAG-OX) 400 mg ORAL DAILY Yatish Jovanna 400mg at 12/22/16 0905spironolactone 25 mg tab(s) (ALDACTONE) 25 mg ORAL BID Yatish Jovanna 25 mgat 12/22/16 0904hydroCHLOROthiazide 25 mg tab(s) (HYDRODIURIL, ESIDRIX) 25 mg ORAL DAILYYatish Jovanna 25 mg at 12/22/16 0905vancomycin dosing and monitoring per pharmacy OTHER As Directed Eileen (Pharmacist)iv contrast (radiology procedure) INTRAVENOUS DIRECTED PRN Marisol(Pa) RussoCURRENT ALLERGIES: Allergies As of Date: 12/15/2016Allergen Noted ReactionCLINDAMYCIN 10/14/2005 HivesMACRODANTIN [NITROFURANTOIN MACRO*10/14/2005 Other: See CommentsPERCOCET [OXYCODONE-ACETAMINOPHEN]0 10/14/2005 Other: See CommentsSULFA (SULFONAMIDE ANTIBIOTICS) 10/14/2005 Rash and ItchingZITHROMAX [AZITHROMYCIN] 10/14/2005 Rash and ItchingZENICEF [OTHER] 10/14/2005 Rash and ItchingFully Assessed 12/15/2016COMPLETE REVIEW OF SYSTEMS:General: no fever, chills or acute changes in weight in the last 6 monthsSkin: no rashes, pruritis or dry skinCardiac: denies chest pain, heart palpitations or orthopneaPulmonary: denies wheezing, productive cough or exertional dyspneaGI: denies nausea, vomiting, diarrhea or constipationNeuro: denies numbnes/tingling in hands or feet and denies seizuresMusc: denies history of upper or lower extremity weaknessEndocrine: denies polyuria, polydipsia, nocturia, blurry vision orexcessive fatigueHematology: Negative for anemia, easy bleeding and bruising.OBJECTIVEPHYSICAL EXAM:BP 149/66 Pulse 85 Temp 36.5 ?C (97.7 ?F) (Oral) Resp 18 Ht 157.5 cm(5' 2) Wt 101.2 kg (223 lb 1.7 oz) SpO2 95% BMI 40.81 kg/j5Mgnzkfs: Well appearing, alert, in no acute distress, well-hydrated, wellnourished.Skin: skin color, texture, turgor normal, no rashes or lesions.Heart: RRR without murmur, gallop, or rubs. No ectopyPulmonary: Lungs clear to auscultation. No wheezing, rhonchi, ralesAbdomen: soft, non-tender, positive bowel soundsExtremities: no edema, no calluses or ulcers present.Peripheral Pulses: posterior tibial and doralis pedis pulses 2+ andsymmetricalDATA:Diagnos tic tests reviewed for today:Recent Labs 12/22/17193PCGLUCOSE 207* 241* 251* 170* 210* 203* 147* 159* 219* 237* 176* 252*Glucose, Point of CareDate Value Ref Range Vtdrvu6812/22/2016 207 (A) 65 - 100 mg/dL Final SIGNATURE: Mia Correa MDDATE: December 22, 2016 Normal [facility] Comp Metabolic Panelon 12-22 Alanine aminotransferase (ALT) 44 U/L Normal 0-45 [facility] Comment on above: Performed By: #### C MP ####[facility] [id number] [place] [address] Albumin 3.7 g/dL Normal 3.5-5.0 [facility] Comment on above: Performed By: #### C MP ####[facility] [address] [place] [address] Alkaline phosphatase (ALP) 78 U/L Normal 40-150 [facility] Comment on above: Performed By: #### C MP ####[facility] [address] [place] [address] Anion gap 15 mmol/L Normal 0-15 [facility] Comment on above: Performed By: #### C MP ####[facility] [address] [place] [address] Aspartate aminotransferase (AST) 15 U/L Normal 7-40 [facility] Comment on above: Performed By: #### C MP ####[facility] [id number] [place] [address] Bilirubin (total) 0.5 mg/dL Normal 0.0-1.5 [facility] Comment on above: Performed By: #### C MP ####[facility] [address] [place] [address] Calcium 9.4 mg/dL Normal 8.5-10.5 [facility] Comment on above: Performed By: #### C MP ####[facility] [address] [place] [address] Chloride 89 mmol/L Low 98-110 [facility] Comment on above: Performed By: #### C MP ####[facility] [address] [place] [address] CO2 27 mmol/L Normal 23-32 [facility] Comment on above: Performed By: #### C MP ####[place] [address] Creatinine 1.48 mg/dL High 0.70-1.40 [facility] Comment on above: Performed By: #### C MP ####[place] [address] eGFR (non-black) 43 mL/min/{1.73_m2} Normal [facility] Comment on above: Performed By: #### C MP ####[facility] [address] [place] [address] eGFR (non-black) 36 . Normal [facility] Comment on above: Result Comment: eGFR (Estimated GFR) Units of measure: mL/min/1.73 meters squaredeGFR is derived from the reexpressed MDRD Study equation using the following parameters: serum creatinine, age, gender and race. The creatinine assay has been calibrated to be traceable to IDMS.An eGFR <60 mL/min/1.73m2 for >3 months is consistent with chronic kidney disease. Refer to KDOQI guidelines for clinical interpretation.In patients with unstable renal function, e.g. those with acute kidney injury, the eGFR may not accurately reflect actual GFR. Performed By: #### C MP ####[facility] [address] [place] [address] Glucose mass conc 207 mg/dL High 65-100 [facility] Comment on above: Performed By: #### C MP ####[facility] [address] [place] [address] Potassium molar conc 4.0 mmol/L Normal 3.5-5.0 [facility] Comment on above: Performed By: #### C MP ####[facility] [address] [place] [address] Protein 6.3 g/dL Normal 6.0-8.4 [facility] Comment on above: Performed By: #### C MP ####[facility] [address] [place] [id number] Sodium 131 mmol/L Low 132-148 [facility] Comment on above: Performed By: #### C MP ####[facility] [id number] [place] [address] Urea nitrogen 52 mg/dL High 8-25 [facility] Comment on above: Performed By: #### C MP ####[facility] [id number] [address] NURSING PROGon 12-22-2016 NURSING PROG HNO ID: [id number] thor: Juli RivasRn) Librado Almodovarice: (none)Author Type: Registered NurseType: Nursing Progress NoteFiled: 12/22/2016 12:54 PMNote Text: Nursing Progress NotePatient Name: Laura StarkMRN: [id number] Location: [facility]-0241/[id number]___ Daily Note:0800: Assumed care of the patient at 0700. Vital signs are stable.Patient's assessment is done and charted accordingly. Will continue tomonitor the patient.1050: Dr. Nugent was paged about a PT and OT order. Awaiting return phonecall.1100: Dr. Nugent is at the patient's bedside. PT and OT orders placed.1240: Dr. Nugent is aware that the patient is complaining of diarrhea.This note was completed by: Juli Almodovar RN [facility] PLAN OF CAREon 12-22-2016 PLAN OF CARE HNO ID: [id number] thor: Natasha RivasRn) LEVI Hitchcockervice: Case ManagementAuthor Type: Registered NurseType: Plan of CareFiled: 12/22/2016 11:00 AMNote Text:MULTIDISCIPLINARY ROUNDSSERVICE DATE: 12/22/2016 ADMISSION DATE: 12/15/2016SERVICE TIME: 10:48 AM ANTICIPATED D/C DATE: 1-2 daysProblem List:ACTIVE PROBLEM LISTBILIARY DYSKINESIAEmbolism and Thrombosis of Unspecified SiteAbnormal Mammogram, UnspecifiedMultinodular GoiterVentral Hernia With ObstructionWound InfectionPe (Pulmonary Embolism)Recurrent Ventral Incisional HerniaWeaknessObesity, Class III, BMI >= 40 (morbid obesity) E66.01Malnutrition of Moderate Degree (Hcc)Attendees Present at Rounds:Motor Tester: Lisaly: husbandPatient: Laura Charles Nurse: Jenny Nugent on phoneNeeds Discussed on Rounds:Plan of CareAnticipated Discharge Disposition:[facility] v[facility] SNFLast Vitals: BP 149/66 Pulse 85 Temp (Src) 97.7 (Oral) Resp 18 Ht5' 2 (1.58m) Wt 223 lb 1.7 oz (101.2kg) SpO2 95% BMI 40.80kg/(m2).Patient and verbalized frustration with no answer to her conditionand she has been sick since October. [place]NATALI asked for PT/OT evaluation days ago. 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 and is unable to care forherself let alone her child, need FMLA.Nursing:Bleeding Intervention(s) Plan: Monitor I AND O;Monitor Vital Signs;MonitorLabs: CBC, INR, PTT/PTBleeding Goals/Outcomes: Free of Signs/Symptom Active BleedingBleeding Goal Target Achievement Date: 12/24/16Risk for InfectionIntervention(s) Plan: Assess and Administer Medications;AssessSigns/Sy mptom of Infection;Assess Vital Signs;Dressing Changes perProtocol;Central Line Daily Maintenance;Maintain Hand Hygiene;Monitor Labsand CulturesRisk for Infection Goals/Outcomes: Patient Without Signs/Symptoms ofInfectionsRisk For Infection Goal Target Achievement Date: 12/24/16Pain Intervention(s) Plan: Provide Quiet and Restful Environment;PainAssessment , Management, Reassessment Per Scoring ToolPain Goals/Outcomes: Decrease in Pain Level per Scoring ToolPain Goal Target Achievement Date: 12/24/16Respiratory Alteration Intervention(s) Plan: Encourage Coughing and DeepBreathing;Positioning for Maximum Lung CapacityRespiratory Alteration Goals/Outcomes: Decrease of Respiratory DistressRespiratory Goal Target Achievement Date: 12/24/16DOCUMENTED BY: Natasha Hitchcock RN PATIENT NAME: Laura StarkDATE: December 22, 2016 : 10:48 AM CSN: [id number] [facility] PROGRESSon 12-22-2016 PROGRESS HNO ID: [id number] thor: Ronny Antonio ChagoavarapuService: Cardiovascular DiseaseAuthor Type: PhysicianType: Progress NotesFiled: 12/22/2016 9:41 PMNote Text:INPATIENT CONSULT PROGRESS NOTESPatient Name: Laura StarkMRN: [id number] of SERVICE: 12/22/2016TIME of SERVICE: 9:30 PMCONSULTING SERVICE: CardiologyINTERVAL HPI: Breathing is better and she is in sinus tachycardia. Nochest pain or palpitations. She is not wheezy. She had uneventful night.DRUGS REVIEWEDASSESSMENT AND PLAN:Status post AF and now in sinus tachycaridaExacerbation of asthma and tracheobronchitisAtelectas isObesity and probable obstructive sleep apneaHyperactive thyroid: currently on methimazoleContinue current therapy???PHYSICAL EXAM:Blood pressure 138/64, pulse 102, temperature 36.9 ?C (98.4 ?F),temperature source Oral, resp. rate 20, height 157.5 cm (5' 2), eblohr631.8 kg (237 lb 10.5 oz), SpO2 96 %.??Body mass index is 43.47 kg/(m2).GENERAL: ?Alert, no distress, cooperativeNECK: No jugulovenous distention, No carotid bruits, Carotid pulse normalcontour, SuppleLUNGS: Lungs clear to auscultation, Good diaphragmatic excursionCARDIAC: irregular?S1 and S2; no rubs, murmurs, or gallopsABDOMEN:benign, soft, flat, non-tender, no masses, normal bowel soundsNEURO: Awake, alert and oriented x 3EXTREMITIES: Extremities normal, no deformities, edema, clubbing or skindiscoloration. Good capillary refill., No ulcersPULSES: 2+ radial, 2+?LABS: CBC: No results for input(s): WBC, RBC, HB, HCT, PLT, MCV, MCH, MPV,RDW in the last 24 hours.CMP:Recent Labs 428NA 131*K 4.0CHLOR 89*CO2 27BUN 52*CREAT 1.48*GLUC 207*TPROT 6.3CA 9.4TBILI 0.5ALKPHOS 78ALT 44AST 15ANION 15Cardiac Enzymes: No results for input(s): CK, MB, CKMB, TROPT in the last24 hours.SIGNATURE: BECKY Fountain; [phone]: December 22, 2016TIME: 9:30 PM [facility] PROGRESS HNO ID: [id number] thor: Lima Reyna (Pharmacist)Service: PharmacyAuthor Type: PharmacistType: Progress NotesFiled: 12/22/2016 10:46 AMNote Text:PHARMACY VANCOMYCIN DOSING NOTEPatient Name: Laura Stark Admission Date:12/15/2016Date of Consult: 12/22/2016 Time of Consult: 10:45 AM1. The primary service has discontinued vancomycin therapy. Pharmacyvancomycin dosing service will sign off. Thank you for allowing us toparticipate in this patient's care. Please contact pharmacy if questions.Lima Reyna, Pharmacist [facility] PROGRESS HNO ID: [id number] thor: Kiara Fleming: General Internal MedicineAuthor Type: PhysicianType: Progress NotesFiled: 12/22/2016 3:26 PMNote Text:INTERNAL MEDICINE PROGRESS NOTEADMITTING PHYSICIAN: Kiara SternJECTIVECHIALENA COMPLAINT: Having more cough and wheezing today,Current Facility-Administered Medications:albuterol 2.5 mg /3 mL (0.083 %) 2.5 mg (PROVENTIL) 2.5 mg INHALATION q 4H while awakealbuterol 2.5 mg /3 mL (0.083 %) 2.5 mg (PROVENTIL) 2.5 mg INHALATION q 2H PRNpantoprazole DR 40 mg tab(s) (PROTONIX) 40 mg ORAL BID AC (0600/1600)guaiFENesin 1,200 mg ER tab(s) (MUCINEX) 1,200 mg ORAL q 12 Hbudesonide 0.5 mg/2 mL 0.5 mg (PULMICORT) 0.5 mg INHALATION BIDapixaban 5 mg tab(s) (ELIQUIS) 5 mg ORAL BIDaspirin, enteric coated 81 mg tab(s) (ASPIRIN, ENTERIC COATED) 81 mg ORALDAILYmetHIMazole 5 mg tab(s) (TAPAZOLE) 5 mg ORAL DAILYmorphine 1-2 mg injection 1-2 mg INTRAVENOUS q 4 H PRNdigoxin 0.25 mg tab(s) (LANOXIN) 0.25 mg ORAL DAILYpolyethylene glycol 3350 17 g packet (MIRALAX, GLYCOLAX) 17 g ORAL DAILYdiltiazem CD 240 mg cap(s) (CARDIZEM CD, CARTIA XT) 240 mg ORAL DAILYmethylPREDNISolone sod succinate(PF) 40 mg injection (Solu-MEDROL) 40 mgINTRAVENOUS q 12 Hondansetron (PF) 4 mg injection (ZOFRAN) 4 mg INTRAVENOUS q 6 H PRN0.9% NaCl 10 mL 10 mL INTRAVENOUS q 12 H0.9% NaCl 20 mL 20 mL INTRAVENOUS PRNcodeine-guaiFENesin 5-10 mL oral liquid (ROBITUSSIN AC) 5-10 mL ORAL q 6 HPRNdextrose 40 % 15 g (INSTA-GLUCOSE) 15 g ORAL PRNOrglucagon 1 mg injection (GLUCAGEN) 1 mg INTRAMUSCULAR PRNOrdextrose 50% in water 25 mL syringe 12.5 g INTRAVENOUS PRNinsulin lispro injection (rapid acting) (HumaLOG) SUBCUTANEOUS w MEALSinsulin lispro injection (rapid acting) (HumaLOG) SUBCUTANEOUS AT BEDTIMEHYDROcodone 5 mg - acetaminophen 325 mg tablet (NORCO) 1-2 tablet ORAL q 6H PRNmontelukast 10 mg tab(s) (SINGULAIR) 10 mg ORAL AT BEDTIMEmagnesium oxide 400 mg tab(s) (MAG-OX) 400 mg ORAL DAILYspironolactone 25 mg tab(s) (ALDACTONE) 25 mg ORAL BIDhydroCHLOROthiazide 25 mg tab(s) (HYDRODIURIL, ESIDRIX) 25 mg ORAL DAILYiv contrast (radiology procedure) INTRAVENOUS DIRECTED PRNINTERVAL HISTORY OF PRESENT ILLNESS: Remains in NSR. No n/v/d.No orthopnea, pnd,cpain, fever, chills.Consult notes reviewed.OBJECTIVEPHYSICAL EXAM:Blood pressure 149/77, pulse 92, temperature 36.5 ?C (97.7 ?F),temperature source Oral, resp. rate 18, height 157.5 cm (5' 2), rtefcv742.2 kg (223 lb 1.7 oz), SpO2 96 %.Body mass index is 40.81 kg/(m2).GENERAL: Morbidly Obese, Alert, no DistressNECK: SuppleLUNGS: decreased a/e, occ ronchi.CARDIAC: s1s2: regABDOMEN: Soft, nontenderEXTREMITIES: Extremities normal, no deformities, edema, clubbing or skindiscoloration. Good capillary refill.NEURO: Alert, oriented X 3, Gait normal. Non-focal. Reflexes normal andsymmetric. Sensation grossly intact.PULSES: 2+ radialDATA:Diagnostic tests reviewed for today's visit:Most recent labs and imaging results.ASSESSMENT/PLANAct aravind Problems: Acute Asthma exacerbation with HCAP? recent sputum cx with MRSA and E.coli: continue iv steroids, consider changing to broad spectrum abx, will waitID follow up today, Continue nebs. Noted Pulmonary eval. Continue codeinecough syrup, Weakness POA: Yes Assessment AND Plan: due to above. Obesity, Class III, BMI >= 40 (morbid obesity) E66.01 Assessment AND Plan: encourage wt. Loss. Hyperglycemia due to steroids: Continue basal and SSI.PAF:continue eliquis,appreciate Endo eval for hyperthyroidism,Appreciate : Cardio eval.PT/OT eval.D/w pulmonary and ID and pt/family.SIGNATURE: Kiara Nugent MD PATIENT NAME: Laura Stark PAGER/CONTACT #: Normal [facility] Respiratory Cult/Stainon Respiratory Cult/Stain Smear Result - No organisms seen Few Polymorphonuclear leukocytes Few Mononuclear cellsCulture Result - Few Pseudomonas aeruginosa --> ABNORMAL ALERT Few Normal respiratory vern present Additional susceptibility testing performed by request. One colony. --> ABNORMAL ALERT Aspergillus fumigatus --> ABNORMAL ALERTORGANISM: Pseudomonas aeruginosaMETHOD: Minimum inhibitory concentration(Vitek)Antibi otic Interp DALILA StatusGentamicin SUSCEPTIBLE <=1 FCiprofloxacin SUSCEPTIBLE <=0.25 FCefepime SUSCEPTIBLE 4 FMeropenem SUSCEPTIBLE 1 FORGANISM: Pseudomonas aeruginosaMETHOD: Minimum inhibitory concentration (VIZION)Antibiotic Interp DALILA StatusPiperacillin/Tazobac RESISTANT >128 F Critically abnormal [facility] Comment on above: Performed By: #### C BCDIF, PT, PTT, CMP, MG1 ####[facility] [id number] [id number] THERAPY NTon 12-22-2016 THERAPY NT HNO ID: [id number] thor: Mira (Ot/L) CecilService: Occupational TherapyAuthor Type: Occupational TherapistType: Therapy (PT/OT/Speech/Resp)Filed: 12/22/2016 3:39 PMNote Text:Occupational Therapy EvaluationSERVICE DATE: 12/22/2016SERVICE TIME: 1434 to 1503 (includes time for chart review)[address]: [address] Discharge Disposition: Subacute/SNF (short-term)Recommended Discharge Disposition Comments: Pt appears to be functioningwell below baseline and requires continued skilled OT services post acutestay to increase ease and independence during ADLs, IADLs and functionalmobility, as pt was highly independent prior to recent illness (last 10weeks) and hospitalizationsJustificat ion For Post Acute Needs: Cognition intact;Good familysupport;Good premorbid functional status;Good sitting tolerance;Living thecommunity premorbidly;Willing to participate;Motivated;Need for assistancemay exceed support availableAnticipated Discharge Needs: Physical Assist at Home;EquipmentPhysical Assist at Home for:Ambulation;Transfers;C leaning;Laundry;Meals;Stai rs;Safety;SelfCare;Shoppin g;TransportationRecommende d Discharge Equipment: Supervisor Process Testing;Long Handled Sponge (tub transferbench)OT Recommendations to Nursing: Assist of 1 person to bathroom forADL?s;Encourage patient participation in ADL?s;OOB for meals;Equipment isac used in room (encourage energy conserv; bsc at sink for seatedgrooming)Equipment To Be Used In Room: Commode-3 in 1;Wheeled Walker (gait belt)OT 6 Clicks Score: 20Precautions/Activity Restrictions: Diabetic;FallRisk;Lines/Tu bes/Drains;Other: See Comments (universal)Precaution/Acti vity Restriction Comments: no BP R UE, PICC lineASSESSMENT:Tolerance Limited By FatiguePt presents with impaired functional mobility, ADL performance, strengthand functional activity tolerance, impacting her ability to functionwithout assist from caregivers. Pt required no more than CGA forfunctional mobility from bathroom to chair and stand > sit, however,appeared very fatigued with noted HAWTHORNE with functional activity and reportsof much difficulty caring for self at home. 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 Ptmotivated to participate in skilled OT services with hopeful return backto PLOF with increased independence in all functional activities.Occupational Therapy Problem List: Impaired Self Care;Decreased ActivityTolerance;Decrease d Strength;Functional Mobility Impairment;BalanceImpaired ;EdemaPatient /Caregiver Goals: Go Home;Care For Self (with eventual return tocare for dtr, IADLs)Goals for Plan of Care:Able to perform HEP with: Independent (for functional BUE strengthening)Grooming with: Supervision (at sink)Lower Body Dressing with: SupervisionToilet Hygiene with: SupervisionChair Transfer with: SupervisionToilet Transfer with: SupervisionTolerate (minutes of functional activity): 7 (during standingADLs/functional mobility)Functional Activity with: Supervision (for increased ease/safety withfunctional tasks)Home Management Skills with: SupervisionProgress Toward Goals: Progressing slower than expectedDue To: fatigueRehab Potential: GoodPLAN:Treatment Frequency (times per week): 3 Current admissionTreatment Interventions: Education;Self Care / Home Management;EnergyConservat ion Training;Strengthening;Fun ctional Mobility TrainingPlan of Care developed with: PatientTREATMENT INTERVENTIONS:Therapy Diagnosis: Decreased activities of daily living (ADL)Interventions Provided: Evaluation;Self Skilled Nursing Management (83726)$ Evaluation-Low (78646) Billed Units: 1 unitSelf Skilled Nursing Management (26218) Treatment Minutes: 121 unitSkilled Intervention(s): Pt educated in role of OT. Pt educated inimportance of out of bed activity (active participation in daily care,sitting in chair for meals and throughout day if asymptomatic) forrehabilitation and to prevent functional decline. Pt instructed to assessself for dizziness/lightheadedness and allow time for body to accommodateupon changes in position, as pt discloses of seeing white starsintermittently with changes in position. Pt educated in importance ofhaving nursing/therapy with pt during toileting/functional mobility toreduce risk of falls (as pt was found standing in bathroom unattended uponOT arrival). Pt instructed to bring walker back to chair surface and toreach hands back for chair armrests for optimal safety during stand to sittransfer. Pt facilitated with clearing environment (i.e. Movement of traytable out of path) during functional mobility for optimal safety. Vitalsand symptoms monitored during session to assess for pt's tolerance tofunctional activity, as pt with noted fatigue and HAWTHORNE upon return frombathroom. Pt educated in Energy Conservation Techniques: Sitting versusstanding for bathing/dressing, use of long handled adaptive equipment,frequent rest breaks, prioritizing/planning, placement of items withinreach to reduce need to reach/bend. Pt provided with Energy ConservationTechniques handout. Pt educated in benefits of sitting on lid of bedsidecommode at sink during bathing/grooming tasks, as pt reports muchdifficulty with sit > stand from low chair without armrests earlier inbathroom .Education in OT POC and discharge recommendation with rationale.Pt educated in the differences between [facility] OT and receiving OT at [facility]. Pteducated in benefits of goal setting and progressing from ADLs >IADLs/care of dtr for optimal safety for pt and dtr.Total Timed Code Treatment Minutes: 12Total Treatment Time (minutes): 30FUNCTIONAL G CODE:OT 6 Clicks Score: 20 (12/22/161433)Self Care Current Status (G8987): CJ (12/22/161433)Self Care Goal Status (G8988): CJ (12/22/161433)Based on clinical assessment and the score on the 6 Clicks FunctionalAssessment Tool, the G code and corresponding severity modifiers aredocumented above.SUBJECTIVE:Current Hospital Course: Chart reviewed; Patient is a 61 year old femaleadmitted with SOB and cough as well as fever; diagnosed acute exacerbationof asthma with failed outpatient therapy, recent hospital admission withdischarge following for pseudomonas + for Ecoli and MRSAPat[facility] due to EKG results ofatrial fibrillation with RVR and possible inferior subendocardial injury,B atelectasisHistory of hyperthyroidism, Graves vs. Toxic nodule, asthma, DVT, PEPatient Report: Patient in bathroom upon OT arrival. I have diarrhea.I'm having trouble even taking care of myself right now.Patient's sister present throughout session with patient's permission.Home EnvironmentPatient Lives With: Family (spouse and disabled child, pt primarycaregiver for dtr)Assistance Available: PRN (spouse works, to take FMLA to care for dtrinitially)Entry To Home: Stairs;With RailNumber Of Stairs Into Home: 4Number Of Stairs To Bed/Bath: 0Tub/Shower Type: tub showerLaundry: basement level, spouse completes, full flight with 1 rail tounc health chathamEquipment Owned: Commode-Raised;Grab Bars-Shower;Hand Held Shower;StandardWalker;Show er Chair (raised toilet seat with arms)Prior Functional Level: Within Functional Limits;Required AssistanceAssistance Required With: Other: See CommentPrior Functional Level Comments: Patient with decline in mobility for thepast 10 weeks with gradual debility, reports recent difficulty with allmobility and 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; 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, fullyindep with amb, ADLs, IADLs, driving, primary caregiver for disableddaughterOBJECTIVE: Responsiveness: Alert;AwakeFollows Commands: 3-step Commands;Cueing NeededCueing to Follow Commands: MinimumVision Deficits: Wears glassesCURRENT FUNCTIONAL STATUS:Current Activities of Daily Living Assist LevelFeeding Independent (per clinical judgment)Grooming Stand By Assistance (per clinical judgment at sink)Bathing Upper Body Set Up (per clinical judgment seated)Bathing Lower Body Moderate Assistance (per clinical judgment )Dressing Upper Body Modified Independent (per clinical judgment seated)Dressing Lower Body Contact Guard Assistance (per clinical judgmentforpants/underw during standing part)Toileting Contact Guard Assistance (per clinical judgment for optimalsafety)Functional Mobility Assist LevelRollingSupine to SitSit to SupineScootingSit to StandStand to Sit Contact Guard Assistance (walker level to bedside chair)Bed to ChairToilet/CommodeFunctio nal Mobility Contact Guard Assistance (bathroom to bedside chair)Wheeled WalkerHand Dominance: RightRange Of Motion: Within Functional Limits ExceptLocation ROM Not WFL: ShoulderRight Shoulder ROM: <1/4 range at baselineStrength: Within Functional Limits ExceptLocation Strength Not WFL: Upper ExtremityLeft Upper Extremity Strength: Prox: 4-/5, distal: 4-/5, manager of pmo: WFLRight Upper Extremity Strength: Prox: 2-/5, distal: 4-/5, manager of pmo: WFLBalance: Dynamic Standing;Static StandingStatic Standing Balance: Stand By AssistanceDynamic Standing Balance: Contact Guard AssistanceActivity Tolerance: (fatigued post functional mobility from bathroom tochair)-SpO2 99%Please see discipline specific clinical documentation flowsheet forcomplete details for this therapy evaluation/treatment.Pt and nursing agreeable to OT services. At end of session, pt sitting inrecliner chair with BLEs elevated on footrest. Tray table and call lightwithin reach. Pt's sister in room at end of session. Nursing (RN)notified of current pt status.SIGNATURE: PIETER Bourne PATIENT NAME: Laura StarkDATE: December 22, 2016 : 3:26 PM PAGER: [phone] [facility] THERAPY NT HNO ID: [id number] thor: Mira García (Ot/L)ervice: Occupational TherapyAuthor Type: Occupational TherapistType: Therapy (PT/OT/Speech/Resp)Filed: 12/22/2016 3:16 PMNote Text:OCCUPATIONAL THERAPY MISSED VISITSERVICE DATE: 12/22/2016SERVICE TIME: 1309 to 1309ROOM: [id number] Evaluation. Patient not seen due to Another service at bedside:Physical Therapy.Will re-attempt as schedule allows.SIGNATURE: PIETER Bourne PATIENT NAME: Laura StarkDATE: December 22, 2016 : 3:16 PM PAGER/CONTACT #: [phone] [facility] THERAPY NT HNO ID: [id number] thor: Juli (Pt) José Miguele: Physical TherapyAuthor Type: Physical TherapistType: Therapy (PT/OT/Speech/Resp)Filed: 12/22/2016 2:46 PMNote Text:Physical Therapy EvaluationSERVICE DATE: 12/22/2016SERVICE TIME: 1250 to 1336ROOM: [id number] Discharge Disposition: Subacute/SNFRecommended Discharge Disposition Comments: Patient currently much belowfunctional baseline with all functional mobility, requires cues/assistthroughout for safety and noted to fatigue quickly with all tasks; patientis + high fall risk, indicates need for continued PT post-acute stay inS setting to improve safety, strength and independence with all mobilityJustification For Post Acute Needs: Cognition intact;Good familysupport;Good premorbid functional status;Good sitting tolerance;Living thecommunity premorbidly;Motivated;Will ing to participate;May not toleratehigher intensity programing;Need for assistance may exceed supportavailableAnticipate d Discharge Needs: Physical Assist at HomePhysical Assist at Home for: Ambulation;Cleaning;Laundr y;Meals;MedicationManageme nt;Stairs;Safety;Self Care;Shopping;Transportati onRecommended Discharge Equipment: No equipment needs anticipated (with SNFdischarge anticipated)PT Recommendations to Nursing: Ambulate with device;To bathroom;Withassist of 1 person;OOB for meals;Other: See Comment (reinforce energyconservation techniques)Ambulation Device: Wheeled Walker (gait belt)PT 6 Clicks Score: 17Precautions/Activity Restrictions: Diabetic;FallRisk;Lines/Tu bes/Drains;Other: See Comments (universal)Precaution/Acti vity Restriction Comments: no BP R UE, PICC lineASSESSMENT :Patient presents with significant generalized weakness B LEs, impairedbalance and overall decreased safety with all functional mobility tasksand impaired functional activity tolerance. Patient is pleasant andcooperative throughout, appropriately follows cues and is motivated toimprove and participate. Patient noted to be very discouraged regardingrecent decline in mobility, relates stress with spouse needing to takeFMLA to care for daughter while patient is recovering strength, muchsupport and encouragement provided as well as healing services consultrecommended to RN. Patient noted to fatigue quickly with all mobilitytasks, requiring rest breaks and time for recovery of intermittent HAWTHORNE.Patient is able to complete seated exercises as below however with slowpacing and rest breaks throughout. Requires skilled PT during andpost-acute stay for progression of functional mobility, reinforcingthroughout safe mobility techniques, energy conservation and monitoringresponse for safe progression. Patient would also benefit from progressivetherapeutic exercises to improve strength, balance, safety andindependence with all mobility to ultimately assist patient with restoremobility to highest potential level of function.Tolerated Full Session (however is very fatigued post-treatment)Physical Therapy Problem List: Education Deficit;Pain;SafetyDeficit s;Decreased Activity Tolerance;Decreased Strength;FunctionalMobilit y Impairment;Balance Impaired;Sensory DeficitPatient /Caregiver Goals: Go To Rehab (if needed, open to home if safe aswell)Goals for Plan of Care:Able to perform HEP with: Supervision (B LEs x 15-20 reps with progress tostand to (+) strength)Transfer supine to/from sit with: Supervision (without use of bedcontrols/rails to emulate home)Transfer sit to/from stand with: Supervision (with LRAD to increase safetywith OOB activity)Ambulate with: SupervisionDistance: 100-150 feetDevice: (LRAD)Ambulate up and down curb step with: Stand By AssistanceDevice: (LRAD )Ambulate up and down steps with: Stand By AssistanceNumber of steps: 4Device: Rail (and LRAD to ensure safety entering home)Goal: Improve static and dynamic standing balance with LRAD to require nomore than supervision to increase safety with all standing activities andreduce fall riskGoal: -Patient to verbalize and demonstrate understanding of energyconservation techniquesRehab Potential: GoodPLAN:Treatment Frequency (times per week): 5 Current admissionTreatment Interventions: Education;Energy Conservation Training;JointMobility;Str engthening;Functional Mobility Training;BalanceTraining;N euromuscular Re-educationPlan of Care developed with: PatientTREATMENT INTERVENTIONS:Therapy Diagnosis: Reduced mobility-other;Muscle Weakness(generalized);Unst eadiness on feet;General symptoms and signs-otherInterventions Provided: Evaluation;Therapeutic Exercise(35278);Therapeuti c Activity (38603);Gait Training (42846)$ Evaluation-Moderate (75992) Billed Units: 1 unitTherapeutic Exercise (45710) Treatment Minutes: 141 unitSkilled Intervention(s): Instruction in therapeutic exerciseVerbal and tactile cuing providedFacilitation of muscle control, optimal recruitment and alignmentCompletes 15 repetitions (unless otherwise noted) of the following seatedtherapeutic exercises on B LE (unless otherwise indicated) with assistanceas indicated sitting in chair: knee flexion/heel slides (contact guardassistance), LAQs (contact guard assistance), hip flexion, manuallyresisted isometric hip abduction bilaterally, manually resisted isometrichip adduction bilaterally. Isometrics x 3-5 second hold verbal, visual and tactile cues initially and prn thereafter fortechnique and for patient to assist throughout as able. Appropriatelyfollows cues throughout. Rest breaks provided secondary to fatigue,generalized muscle weakness/fatigue, completes with slow pacing and notedtremoring due to weaknessEducation to patient on benefits/rationale for exercisesTherapeutic Activity (98021) Treatment Minutes: 50 unitsSkilled Intervention(s): Education: Pt educated in role of PT during acutestay and PT POC, importance of OOB activity to reduce risk of functionaldecline including recommendation for up in chair throughout the dayespecially for all meals, benefits described on upright sitting positionon GI function, lung function, discussed importance of mobilization withRN staff throughout the day and ability for chair follow from staff pharmacist hospital aswell as needed, LE AROM throughout the day for circulation and preventdecline, rationale for discharge recommendation of SNF initiallypost-acute stay for optimal safety given current functional limitations,importance of balancing activity with rest, use of call light 100% of thetime for assist, parameters for safe home going, rationale for equipmentrecommendation of use of FWW for safety with all mobility (relates hasbeen able to ambulate during acute stay and 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 holding 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, discussed potential increased falls risk with this technique andimproved safety with use of assistive deviceSee below for additional cues and assistGait Training (49470) Treatment Minutes: 101 unitSkilled Intervention(s): Instruction in sit to stand technique with properhand placement and body positioning at edge of bed/chair, Instruction instand to sit technique with LE's touching chair/bed and reaching back forsurface, Instruction in correction of gait deviations, Instruction in useof equipment, cues for sequence and pattern and See below for additionalcues and assistGait trial 40 feet x 2 with chair follow throughout from [facility] for optimalsafety, patient with frequent brief standing rest breaks secondary tofatigue, HAWTHORNE, tremoring B UEsTotal Timed Code Treatment Minutes: 29Total Treatment Time (minutes): 46FUNCTIONAL G CODE:PT 6 Clicks Score: 17 (12/22/16 1250)Mobility: Walking and Moving Around Current Status (G8978): CK ()Mobility: Walking and Moving Around Goal Status (G8979): CJ ()Based on clinical assessment and the score on the 6 Clicks FunctionalAssessment Tool, the G code and corresponding severity modifiers aredocumented above.SUBJECTIVE:Current Hospital Course: Chart reviewed; Patient admitted with SOB andcough as well as fever; diagnosed acute exacerbation of asthma with failedoutpatient therapy, recent hospital admission with discharge following forpseudomonas + for Ecoli and MRSAPat[facility] due to EKG results ofatrial fibrillation with RVR and possible inferior subendocardial injury,B atelectasisHistory of hyperthyroidism, Graves vs. Toxic nodule, asthma, DVT, PEPatient Report: Patient sitting up in bedside recliner chair at approachsleeping, awakes easily to verbal stimuli, agreeable to PTevaluation/treatment, states I can get up, it's just hard and my legs areso weak, patient noted to be tearful at times regarding currentfunctional mobility limitations, ok per RN for PTPatient very appreciative of PT services and mobilization post-treatmentHome EnvironmentPatient Lives With: Family (spouse and disabled child, pt primarycaregiver for dtr)Assistance Available: PRN (spouse works, to take FMLA to care for dtrinitially)Entry To Home: Stairs;With RailNumber Of Stairs Into Home: 4Number Of Stairs To Bed/Bath: 0Tub/Shower Type: tub showerLaundry: basement level, spouse completes, full flight with 1 rail tounc health chathamEqument Owned: Commode-Raised;Grab Bars-Shower;Hand Held Shower;StandardWalker;Show er Chair (raised toilet seat with arms)Prior Functional Level: Within Functional Limits;Required AssistanceAssistance Required With: Other: See CommentPrior Functional Level Comments: Patient with decline in mobility for thepast 10 weeks with gradual debility, reports recent difficulty with allmobility and 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; 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, fullyindep with amb, ADLs, IADLs, driving, primary caregiver for disableddaughterOBJECTIVE: CURRENT FUNCTIONAL STATUS:Current Functional Mobility Assist Level Additional InformationRollingSupine to Sit (not tested; up in bedside recliner chair at approach)Sit to Supine (returns to chair post-treatment)Scooting Contact Guard Assistance (forward/retro in chair) + time tocomplete with slow pacing, verbal cues for effective use of B UEs foroptimal weight shift and safe progression forward/retroSit to Stand Contact Guard Assistance (to minimal assist, very slowpacing, + time x 6 trials total) Verbal cues for safe hand placement, safeapproach, controlled descent, fair follow through, 50% of trials patientwith uncontrolled descent secondary to fatigue, noted much generalizedweakness throughoutStand to Sit Contact Guard Assistance (from FWW to chair x 6 trials total)See aboveBed to ChairToilet/CommodeGait Contact Guard Assistance Gait Device: Wheeled Walker (gait belt) Gait Distance (feet): 10 feet x 1, 40 feet x 2Stairs (unsafe for progression at this time)Curb StepCar TransferGeneral Gait Deviations: Trina decreased;Step length decreased;Flexedtrunk posture;Other: See comment (cautious slow,step to to minimal stepthrough,fatigues quick)Patient declines further ambulation distance after first trial x 10 feetsecondary to generalized weakness and HAWTHORNE, x 1-2 minutes for recovery ofDOE in chair following, sits to complete exercises with 40 feet x 2 gaittrials following with chair follow; reinforced to patient need forawareness of HAWTHORNE and especially fatigue for safe return to room, maximallyfatigued post--Patient sitting up in bedside recliner chair with lunch tray [id number], call melgar and personal belongings in reach, RN notified ofpatient status, denies needs at this time.-Gait belt in place for safety with all functional mobility-Lines/Tubes/Drain s: Intact and as follows: telemetry,heplock, PICC R UE-Range of Motion: WFL B LEs AROM See OT evaluation for assessment of UE range of motion.-Strength: Grossly 4-/5 B ankles and knees, 3+ to 4-/5 B hipabduction/adduction/fle xion See OT evaluation for assessment of UE strength.Balance: Static Sitting;Static Standing;Dynamic StandingStatic Sitting Balance: Supervision (sitting up in chair )Static Standing Balance: Contact Guard Assistance (after accommodates, BUEs on FWW)Dynamic Standing Balance: Contact Guard Assistance (with B UEs on FWW)Please see discipline specific clinical documentation flowsheet forcomplete details for this therapy evaluation/treatment.JESSICA PHILLIP: Juli Bravo PT PATIENT NAME: Laura StarkDATE: December 22, 2016 : 2:29 PM PAGER/CONTACT #: [phone] [facility] XR CHEST 1V FRONTAL PORTon 1 02-22-2016 XR CHEST 1V FRONTAL PORT * * *Final Report* * *DATE OF EXAM: Dec 22 2016 9:03AM MDX [id number] - XR CHEST 1V FRONTAL PORT / REASON: SOB (shortness of breath) * * * * Physician Interpretation * * * * Comparison: CT chest 12/15/2016RESULTS:See Impression.IMPRESSION:1. Lines, Tubes, and Devices: None2. Lungs and Pleura: Some linear scarring in the LEFT lung base medially. The lungs are clear. No infiltrates, nodules or pleural effusions are seen.3. Cardiomediastinal silhouette: Mild cardiomegaly noted. Pulmonary vascularity is unremarkable.4. Other: RIGHT shoulder prosthesis noted visualized portions of the components unremarkable.IMPRESSION:Sm all amount of LEFT basilar atelectasis or scarring.Breakdown Worker: ALBARO Transcribe Date/Time: Dec 22 2016 9:05ADictated by : Eugenia BLUNT examination was interpreted and the report reviewed and electronically signed by: GRANT GIRON DO on Dec 22 2016 9:08AM [id number] [facility] CBCon 12-21-2016 Erythrocyte distribution width Auto Ratio (RBC) 16.8 % High 11.5-15.0 [facility] Comment on above: Performed By: #### C HUDSON ####[facility] [id number] [place] [address] Erythrocytes (RBC) 4.41 10*6/uL Normal 3.90-5.20 [facility] Comment on above: Performed By: #### C HUDSON ####[facility] [address] [place] [address] Hematocrit (HCT) 37.8 % Normal 36.0-46.0 [facility] Comment on above: Performed By: #### C HUDSON ####[place] [address] Hemoglobin mass conc (Bld) 12.1 g/dL Normal 11.5-15.5 [facility] Comment on above: Performed By: #### C HUDSON ####[place] [address] MCH 27.4 pG Normal 26.0-34.0 [facility] Comment on above: Performed By: #### C HUDSON ####[facility] [address] [place] [address] MCHC mass conc (RBC) 32.0 g/dL Normal 30.5-36.0 [facility] Comment on above: Performed By: #### C HUDSON ####[place] [address] MCV 85.7 fL Normal 80.0-100.0 [facility] Comment on above: Performed By: #### C HUDSON ####[place] [address] Platelet mean volume (PMV) 10.3 fL Normal 9.0-12.7 [facility] Comment on above: Performed By: #### C HUDSON ####[place] [address] Platelets 227 10*3/uL Normal 150-400 [facility] Comment on above: Performed By: #### C HUDSON ####[facility] [address] [place] [address] WBC (Leukocytes) 10.56 10*3/uL Normal 3.70-11.00 [facility] Comment on above: Performed By: #### C KCKMB ####[facility] [address] [place], [place] [phone] CONSULT PROGon 12-21-2016 CONSULT PROG HNO ID: [id number] thor: Kamaljit Jimenez: EndocrinologyAuthor Type: PhysicianType: Consult Progress NoteFiled: 12/21/2016 7:44 PMNote Text: CONSULT PROGRESS NOTEPatient Name: Laura Stark Account #: Data UnavailableMRN: [id number] Admission Date: 12/15/2016Date of Evaluation: 12/21/2016 Time of Evaluation: 5:12 Wan Stark is being seen in consultation for advice and/or opinionregarding the management of steroid induced uncontrolled blood sugar,hyperthyroid and thyroid nodules.INTERVAL HPI: feeling slightly better than before, started on 5 mgmethimazole from yesterday, still blood sugar is running high 100s to [id number]. US thyroid showed multiple nodules, with a dominant nodule in theleft lobe, as per pt she had an US guided FNA at [facility] years ago.PERTINENT ROS:GENERAL: Unintentional weight lossHEENT: Negative for frequent or significant headaches, No changes inhearing or vision, no nose bleeds or other nasal problemsNECK: Negative for lumps, goiter, pain and significant neck swellingRESPIRATORY: Cough; moist, WheezingCARDIOVASCULAR: Negative for chest pain, leg swelling, hypertension, CHFor palpitationsGI: No nausea, vomiting, or diarrhea and Positive for constipationGU: No history of dysuria, frequency or incontinenceMUSCULOSKELETA L: Negative for joint pain or swelling, back pain or musclepainSKIN: Negative for lesions, rash, and itchingPSYCH: Negative for sleep disturbance, mood disorder and recentpsychosocial stressorsHEMATOLOGY/LYMPHO LOGY: Negative for prolonged bleeding, bruising easily orswollen nodesENDOCRINE: Negative for cold or heat intolerance, polyuria, polydipsia andgoiterNEURO: No history of headaches, syncope, paralysis, seizures or tremorsMEDICATIONS:Current hospital medications:albuterol 2.5 mg /3 mL (0.083 %) 2.5 mg (PROVENTIL) 2.5 mg INHALATION q 4H while awakealbuterol 2.5 mg /3 mL (0.083 %) 2.5 mg (PROVENTIL) 2.5 mg INHALATION q 2H PRNpantoprazole DR 40 mg tab(s) (PROTONIX) 40 mg ORAL BID AC (0600/1600)insulin NPH human 7 Units injection (intermediate acting) (NovoLIN N,HumuLIN N) 7 Units SUBCUTANEOUS BIDguaiFENesin 1,200 mg ER tab(s) (MUCINEX) 1,200 mg ORAL q 12 Hbudesonide 0.5 mg/2 mL 0.5 mg (PULMICORT) 0.5 mg INHALATION BIDapixaban 5 mg tab(s) (ELIQUIS) 5 mg ORAL BIDaspirin, enteric coated 81 mg tab(s) (ASPIRIN, ENTERIC COATED) 81 mg ORALDAILYmetHIMazole 5 mg tab(s) (TAPAZOLE) 5 mg ORAL DAILYmorphine 1-2 mg injection 1-2 mg INTRAVENOUS q 4 H PRNdigoxin 0.25 mg tab(s) (LANOXIN) 0.25 mg ORAL DAILYpolyethylene glycol 3350 17 g packet (MIRALAX, GLYCOLAX) 17 g ORAL DAILYdiltiazem CD 240 mg cap(s) (CARDIZEM CD, CARTIA XT) 240 mg ORAL DAILYmethylPREDNISolone sod succinate(PF) 40 mg injection (Solu-MEDROL) 40 mgINTRAVENOUS q 12 Hondansetron (PF) 4 mg injection (ZOFRAN) 4 mg INTRAVENOUS q 6 H PRN0.9% NaCl 10 mL 10 mL INTRAVENOUS q 12 H0.9% NaCl 20 mL 20 mL INTRAVENOUS PRNcodeine-guaiFENesin 5-10 mL oral liquid (ROBITUSSIN AC) 5-10 mL ORAL q 6 HPRNdextrose 40 % 15 g (INSTA-GLUCOSE) 15 g ORAL PRNglucagon 1 mg injection (GLUCAGEN) 1 mg INTRAMUSCULAR PRNdextrose 50% in water 25 mL syringe 12.5 g INTRAVENOUS PRNinsulin lispro injection (rapid acting) (HumaLOG) SUBCUTANEOUS w MEALSinsulin lispro injection (rapid acting) (HumaLOG) SUBCUTANEOUS AT BEDTIMEHYDROcodone 5 mg - acetaminophen 325 mg tablet (NORCO) 1-2 tablet ORAL q 6H PRNcefTRIAXone 1 g in sterile water 10 mL (ROCEPHIN) 1 g INTRAVENOUS q 24 Hmontelukast 10 mg tab(s) (SINGULAIR) 10 mg ORAL AT BEDTIMEmagnesium oxide 400 mg tab(s) (MAG-OX) 400 mg ORAL DAILYspironolactone 25 mg tab(s) (ALDACTONE) 25 mg ORAL BIDhydroCHLOROthiazide 25 mg tab(s) (HYDRODIURIL, ESIDRIX) 25 mg ORAL DAILYvancomycin dosing and monitoring per pharmacy OTHER As Directediv contrast (radiology procedure) INTRAVENOUS DIRECTED PRNPHYSICAL EXAM:Patient Vitals for the past 24 hrs: BP Temp Temp src Pulse Resp SpO2 Socnmh35/07/17 1647 - - - 90 20 - -12/21/16 1635 - - - 88 20 96 % -12/21/16 1549 136/82 36.5 ?C (97.7 ?F) Oral 84 18 94 % -12/21/16 1148 - - - 89 20 98 % -12/21/16 1111 126/82 36.5 ?C (97.7 ?F) Oral 94 18 97 % -12/21/16 0807 - - - 90 20 - -12/21/16 0804 116/59 36.8 ?C (98.2 ?F) Oral 88 20 100 % -12/21/16 0757 - - - 93 20 98 % -12/21/16 0600 - - - - - - 100.3 kg (221 lb 1.6 oz)12/21/16 0350 134/61 36.9 ?C (98.4 ?F) Oral 79 20 95 % -12/21/16 0105 - - - 90 20 - -12/21/16 0053 - - - 88 20 95 % -12/21/16 0046 157/93 36.4 ?C (97.5 ?F) Oral 93 20 94 % -12/20/162002 - - - 87 20 - -12/20/16 194 - - - 87 18 96 % -12/20/16 1936 149/80 36.9 ?C (98.4 ?F) Oral 88 16 95 % -Body mass index is 40.44 kg/(m2).GENERAL: Alert, no distress, cooperative, Morbidly ObeseSKIN: Skin color, texture, turgor normal. No rashes or lesions.HEAD/SINUSES: No significant findingsEYES: PERRLA, EOMINOSE: Nares normal. Septum midline.OROPHARYNX: Lips, mucosa, and tongue normal. Teeth and gums normal.Oropharynx normal.NECK: No jugulovenous distention, Supple, No thyromegalyLUNGS: Lungs clear to auscultation, Good diaphragmatic excursionCARDIAC: Normal S1 and S2; no rubs, murmurs, or gallopsABDOMEN: Abdomen soft, non-tender, BS normal, No masses or organomegalyEXTREMITIES: Extremities normal, no deformities, edema, clubbing or skindiscoloration. Good capillary refill.NEURO: Gait not tested. Reflexes normal and symmetric. Sensation grosslyintact, Cranial nerves II-XII intactLabs:CBC:WBC 10.56 12/21/2016Hemoglobin 12.1 12/21/2016Hematocrit 37.8 12/21/2016Platelet Count 227 12/21/2016CMP:Sodium 131 12/21/2016Potassium 3.9 12/21/2016BUN 40 12/21/2016Creatinine 1.38 12/21/2016Glucose 198 12/21/2016COAGS:APTT <20.0 12/15/2016PT INR 1.0 12/15/2016 URINALYSIS:Leukocytes trace 04/12/2016SED RATE/CRP:WSR 66 02/15/2013WSR 54 02/25/2012CRP 0.8 11/25/2005SURGICAL PATHOLOGY:N/A FLUID ANALYSIS:N/ADATA:Component Latest Ref Rng AND Units 12/19/2016 12/19/2016 12/19/201612/20/2016 12/20/2016 12/21/2016 12/21/2016 1:33 PM 5:30 PM 8:48 PM 8:13 AM 12:52 PM 5:15 PM 8:48 PM 8:15 AM12:11 PMGlucose, Point of Care 65 - 100 mg/dL 252 (A) 176 (A) 237 (A) 219 (A) 159(A) 147 (A) 203 (A) 210 (A) 170 (A)Component Latest Ref Rng AND Units 12/18/2016 12/19/2016TSH 0.400 - 5.500 uU/mL 0.242 (L)Free T4 0.9 - 1.7 ng/dL 1.9 (H)Free T3 2.3 - 4.1 pg/mL 2.1 (L)TBI <1.0 U/L <1. 11:40 AM - Interface, Results InImpressionIMPRESSION:Thy roid nodules as noted in results.Breakdown Worker: ALBARO ?Transcribe Date/Time: Dec 11:35ADictated by : JULIEN MACHUCA MDThis examination was interpreted and the report reviewed andelectronically signed by:JULIEN MACHUCA MD on Dec 11:38AM ?ESTASSESSMENT AND PLAN:Uncontrolled blood sugar from steroid (DM-2): still on solumedrol 40 [id number], on NPH 5 units BID but not under good controlPlan: go up on NPH to 7 units bidHyperthyroid: on methimazole 5 mg once a day, clinically stablePlan: continue current Rx. Check TFT next week if she is the hosp, withCBC and LFT. If she goes home, we can check labs in 4 weeksThyroid nodules: MNG. With dominant thyroid nodule in the left side. Asper pt she had [facility] guided [facility]Plan: we will [facility] and if needed consider US guided FNA once hyperthyroid and Afib isunder control as outpatient.ELECTRONICALLY SIGNED: Kamaljit Guillermo MD 12/21/2016 7:12 PM [facility] CONSULT PROG HNO ID: [id number] thor: Jaya Darby RaiService: Pulmonary DiseaseAuthor Type: PhysicianType: Consult Progress NoteFiled: 12/21/2016 2:57 PMNote Text: RESPIRATORY INSTITUTEPULMONARY MEDICINEIN-PATIENT CONSULT PROGRESS NOTESERVICE DATE: 12/21/2016ASSESSMENT:Asthma with acute exacerbationBilateral atelectasisRecent sputum (+) E coli and MRSA ([facility] - 12/06/16)Paroxysmal atrial fibrillation with RVRRemote history of DVT/PEMorbid obesitySuspected OSARECOMMENDATIONS:Nebuliz ed albuterol-ipratropium 4 times daily and up to every 2 hours asneeded.SoluMedrol 40 mg every 12 hours.Antibiotics as per ID - vancomycin/Ceftriaxone.Muc inex 1200 mg every 12 hours.Pulmicort 0.5 nebulized BIDDiscontinue duonebStart Albuterol nebulized q4 hours while awake and q2 hours PRNIncrease Protonix dose to 40 mg PO BIDCheck peak flows pre and post treatmentOccupational therapy evaluation and treatmentPlan discussed in detail with patient, RN and primary attending. Patientverbalizes understanding and is in agreement with the current managementplan.Total time spent in patient care includes but is not limited to patient/family discussions, collaborative discussions with other healthcareproviders, review of medical records, review of laboratory tests,radiology images/ results, microbiology and pathology data.Virgen Voss Rai, Respiratory InstituteThe Bellevue HospitalPager #[id number] COMPLAINT: Wheezing, shortness of breathINTERVAL HPI:Laura Stark is a 61 year old female status sinceprevious days visit is feeling slightly better after starting Pulmicort.No acute overnight events. Respiratory virus panel unremarkable. Patientstates that her cough and wheezing and worse when she lays supine. Nofevers, chills, night sweats, chest pain, worsening SOB, abd pain or legswelling. She has known history of GERD and is getting Protonix daily.She has been advised to get a sleep study in the past but she has not hadone. She states that steroids are upsetting her stomach.MEDICATIONS:Hermilo briscoe Facility-Administered Medications:guaiFENesin 1,200 mg ER tab(s) (MUCINEX) 1,200 mg ORAL q 12 Hbudesonide 0.5 mg/2 mL 0.5 mg (PULMICORT) 0.5 mg INHALATION BIDapixaban 5 mg tab(s) (ELIQUIS) 5 mg ORAL BIDaspirin, enteric coated 81 mg tab(s) (ASPIRIN, ENTERIC COATED) 81 mg ORALDAILYmetHIMazole 5 mg tab(s) (TAPAZOLE) 5 mg ORAL DAILYinsulin NPH human 5 Units injection (intermediate acting) (NovoLIN N,HumuLIN N) 5 Units SUBCUTANEOUS BIDmorphine 1-2 mg injection 1-2 mg INTRAVENOUS q 4 H PRNdigoxin 0.25 mg tab(s) (LANOXIN) 0.25 mg ORAL DAILYpolyethylene glycol 3350 17 g packet (MIRALAX, GLYCOLAX) 17 g ORAL DAILYdiltiazem CD 240 mg cap(s) (CARDIZEM CD, CARTIA XT) 240 mg ORAL DAILYmethylPREDNISolone sod succinate(PF) 40 mg injection (Solu-MEDROL) 40 mgINTRAVENOUS q 12 Hondansetron (PF) 4 mg injection (ZOFRAN) 4 mg INTRAVENOUS q 6 H PRN0.9% NaCl 10 mL 10 mL INTRAVENOUS q 12 H0.9% NaCl 20 mL 20 mL INTRAVENOUS PRNcodeine-guaiFENesin 5-10 mL oral liquid (ROBITUSSIN AC) 5-10 mL ORAL q 6 HPRNdextrose 40 % 15 g (INSTA-GLUCOSE) 15 g ORAL PRNOrglucagon 1 mg injection (GLUCAGEN) 1 mg INTRAMUSCULAR PRNOrdextrose 50% in water 25 mL syringe 12.5 g INTRAVENOUS PRNinsulin lispro injection (rapid acting) (HumaLOG) SUBCUTANEOUS w MEALSinsulin lispro injection (rapid acting) (HumaLOG) SUBCUTANEOUS AT BEDTIMEHYDROcodone 5 mg - acetaminophen 325 mg tablet (NORCO) 1-2 tablet ORAL q 6H PRNcefTRIAXone 1 g in sterile water 10 mL (ROCEPHIN) 1 g INTRAVENOUS q 24 Hipratropium-albuterol 3 mL nebulizer solution (DUONEB) 3 mL INHALATION QIDmontelukast 10 mg tab(s) (SINGULAIR) 10 mg ORAL AT BEDTIMEmagnesium oxide 400 mg tab(s) (MAG-OX) 400 mg ORAL DAILYspironolactone 25 mg tab(s) (ALDACTONE) [address] 40 mg tab(s) (PROTONIX) 40 mg ORAL DAILYhydroCHLOROthiazide 25 mg tab(s) (HYDRODIURIL, ESIDRIX) 25 mg ORAL DAILYvancomycin dosing and monitoring per pharmacy OTHER As Directedipratropium-albute rol 3 mL nebulizer solution (DUONEB) 3 mL INHALATION q 2H PRNiv contrast (radiology procedure) INTRAVENOUS DIRECTED PRNCURRENT ALLERGIES:ALLERGIESAllerge n Reactions- Clindamycin Hives- Macrodantin [Nitrof* Other: See Comments Off-balance- Percocet [Oxycodone* Other: See Comments Nausea- Sulfa (Sulfonamide * Rash, Itching localized rash and itching all over- Zithromax [Azithrom* Rash, Itching localized rash and itching all over- Zenicef [Other] Rash, Itching itching in mouth; localized rash and itching all overPatient Vitals for the past 24 hrs: BP Temp Temp src Pulse Resp SpO2 Guwcgx96/07/17 1148 - - - 89 20 98 % -12/21/16 1111 126/82 36.5 ?C (97.7 ?F) Oral 94 18 97 % -12/21/16 0807 - - - 90 20 - -12/21/16 0804 116/59 36.8 ?C (98.2 ?F) Oral 88 20 100 % -12/21/16 0757 - - - 93 20 98 % -12/21/16 0600 - - - - - - 100.3 kg (221 lb 1.6 oz)12/21/16 0350 134/61 36.9 ?C (98.4 ?F) Oral 79 20 95 % -12/21/16 0105 - - - 90 20 - -12/21/16 0053 - - - 88 20 95 % -12/21/16 0046 157/93 36.4 ?C (97.5 ?F) Oral 93 20 94 % -12/20/162002 - - - 87 20 - -12/20/16 1947 - - - 87 18 96 % -12/20/16 1936 149/80 36.9 ?C (98.4 ?F) Oral 88 16 95 % -12/20/16 1625 123/89 - - 96 - - -12/20/16 1624 150/110 36.7 ?C (98.1 ?F) Oral 76 16 97 % -12/20/16 1616 - - - 75 18 97 % -Intake/Output Summary (Last 24 hours) at 12/21/16 1447Last data filed at 12/21/16 1300 Gross per 24 hourIntake 420 mlOutput 0 mlNet 420 mlOBJECTIVEPHYSICAL EXAM:BP 126/82 Pulse 89 Temp (Src) 97.7 (Oral) Resp 20 Ht 5' 2 (1.58m) Wt 221 lb 1.6 oz (100.3kg) SpO2 98% BMI 40.43 kg/(m2).General appearance: Morbidly obese, well appearing, alert, in no acutedistressOropharynx: Lips, mucosa, and tongue normal, teeth and gums normal,oropharynx normalRespiratory: Bilateral rhonchi and wheezing, good air movement.Cardiovascular: Negative. RRR without murmur, gallop, or rubs. No ectopyAbdomen: Soft, non tender, non distended. Normal bowel sounds.Extremities: Normal pulses. No peripheral edema.DATADiagnostic tests reviewed for today's visit, films/specimens werepersonally reviewed by me:Most recent labs and imaging results.CBC, Coags, BMP, Mg, PhosRecent Labs 12/22/1703WBC -- 10.56 7.59HB -- 12.1 11.3*HCT -- 37.8 35.8*PLT -- 227 206NA 131* 130* 136K 3.9 7.3* 3.6CHLOR 88* 88* 96*CO2 25 25 25BUN 40* 42* 37*CREAT 1.38 1.41* 1.22GLUC 198* 208* 191*CA 9.4 5.3* 9.6Liver Function, Amylase, AND LipaseRecent Labs 12/22/1703TPROT 6.2 6.0 6.1ALB 3.6 3.6 3.7ALT 39 39 33AST 13 14 14ALKPHOS 70 69 69TBILI 0.5 0.6 0.4Cardiac EnzymesABGsSIGNATURE: Jayadesmond Darby Rai, MD PATIENT NAME: Laura StarkDATE: December 21, 2016 : 2:47 PM PAGER/CONTACT #: [id number] Normal [facility] CONSULT PROG HNO ID: [id number] thor: PARVIN Roldanervice: Infectious DiseaseAuthor Type: PhysicianType: Consult Progress NoteFiled: 12/22/2016 6:55 AMNote Text:INFECTIOUS DISEASE PROGRESS NOTEPatient Name: Laura tSark HISTORY:Stable on floor. On RA O2 now. No fevers. SOB is better. Still weak. Nodiarrhea. ROS checked in details. All qs answered.Patient Active Hospital Problem List: Weakness (12/16/2016) Obesity, Class III, BMI >= 40 (morbid obesity) E66.01 (12/16/2016) Malnutrition of moderate degree (HCC) (12/16/2016)ASSESSMENT:MRSA and E coli HCAP. [facility] woundAcute respiratory failureFailed OP PO abx treatment w doxyWeaknessObesity, Class III, BMI >= 40Malnutrition of moderate degreeRECOMMENDATIONS:Cont inue vancomycin and ceftriaxoneResp viral panel checkSupportive carePO abx at discharge anticipated likely doxy and omnicef x 5 days moreWean I0Nzbucibjej careMEDICATIONS: reviewed.Current hospital medications:guaiFENesin 1,200 mg ER tab(s) (MUCINEX) 1,200 mg ORAL q 12 Hbudesonide 0.5 mg/2 mL 0.5 mg (PULMICORT) 0.5 mg INHALATION BIDapixaban 5 mg tab(s) (ELIQUIS) 5 mg ORAL BIDvancomycin 1.5 g in D5W 250 mL 1.5 g INTRAVENOUS q 24 HRaspirin, enteric coated 81 mg tab(s) (ASPIRIN, ENTERIC COATED) 81 mg ORALDAILYmetHIMazole 5 mg tab(s) (TAPAZOLE) 5 mg ORAL DAILYinsulin NPH human 5 Units injection (intermediate acting) (NovoLIN N,HumuLIN N) 5 Units SUBCUTANEOUS BIDmorphine 1-2 mg injection 1-2 mg INTRAVENOUS q 4 H PRNdigoxin 0.25 mg tab(s) (LANOXIN) 0.25 mg ORAL DAILYpolyethylene glycol 3350 17 g packet (MIRALAX, GLYCOLAX) 17 g ORAL DAILYdiltiazem CD 240 mg cap(s) (CARDIZEM CD, CARTIA XT) 240 mg ORAL DAILYmethylPREDNISolone sod succinate(PF) 40 mg injection (Solu-MEDROL) 40 mgINTRAVENOUS q 12 Hondansetron (PF) 4 mg injection (ZOFRAN) 4 mg INTRAVENOUS q 6 H PRN0.9% NaCl 10 mL 10 mL INTRAVENOUS q 12 H0.9% NaCl 20 mL 20 mL INTRAVENOUS PRNcodeine-guaiFENesin 5-10 mL oral liquid (ROBITUSSIN AC) 5-10 mL ORAL q 6 HPRNdextrose 40 % 15 g (INSTA-GLUCOSE) 15 g ORAL PRNglucagon 1 mg injection (GLUCAGEN) 1 mg INTRAMUSCULAR PRNdextrose 50% in water 25 mL syringe 12.5 g INTRAVENOUS PRNinsulin lispro injection (rapid acting) (HumaLOG) SUBCUTANEOUS w MEALSinsulin lispro injection (rapid acting) (HumaLOG) SUBCUTANEOUS AT BEDTIMEHYDROcodone 5 mg - acetaminophen 325 mg tablet (NORCO) 1-2 tablet ORAL q 6H PRNcefTRIAXone 1 g in sterile water 10 mL (ROCEPHIN) 1 g INTRAVENOUS q 24 Hipratropium-albuterol 3 mL nebulizer solution (DUONEB) 3 mL INHALATION QIDmontelukast 10 mg tab(s) (SINGULAIR) 10 mg ORAL AT BEDTIMEmagnesium oxide 400 mg tab(s) (MAG-OX) 400 mg ORAL DAILYspironolactone 25 mg tab(s) (ALDACTONE) [address] 40 mg tab(s) (PROTONIX) 40 mg ORAL DAILYhydroCHLOROthiazide 25 mg tab(s) (HYDRODIURIL, ESIDRIX) 25 mg ORAL DAILYvancomycin dosing and monitoring per pharmacy OTHER As Directedipratropium-albute rol 3 mL nebulizer solution (DUONEB) 3 mL INHALATION q 2H PRNiv contrast (radiology procedure) INTRAVENOUS DIRECTED PRNPHYSICAL EXAM:Vital signs: BP 134/61 Pulse 79 Temp 36.9 ?C (98.4 ?F) (Oral) Resp20 Ht 157.5 cm (5' 2) Wt 107.8 kg (237 lb 10.5 oz) SpO2 95% BMI43.47 kg/m2Temp (24hrs), Av.8 ?C (98.2 ?F), Min:36.3 ?C (97.4 ?F), Max:37.1 ?C(98.8 ?F)General: alert, oriented, NADLungs: bilaterally clear to auscultationHeart: regular rate and rhythmAbdomen: soft, non tender, non distended, BS+Extremities: no edemaNo rashesNo joint inflammationNeck suppleLines okNo CVATLabs:Recent Labs 12/20/1703WBC 10.56 7.59HB 12.1 11.3*HCT 37.8 35.8*PLT 227 206NA 130* 136K 7.3* 3.6CHLOR 88* 96*CO2 25 25BUN 42* 37*CREAT 1.41* 1.22Microbiology data: reviewedImaging data: Du Mcginnis [id number]:4 9 AM Normal [facility] Comp Metabolic Panelon 12-21 Alanine aminotransferase (ALT) 39 U/L Normal 0-45 [facility] Comment on above: Performed By: #### C HUDSON ####[facility] [address] [place] [address] Albumin 3.6 g/dL Normal 3.5-5.0 [facility] Comment on above: Performed By: #### C HUDSON ####[facility] [address] [place] [address] Alkaline phosphatase (ALP) 70 U/L Normal 40-150 [facility] Comment on above: Performed By: #### C HUDSON ####[facility] [address] [place] [address] Anion gap 18 mmol/L High 0-15 [facility] Comment on above: Performed By: #### C HUDSON ####[facility] [address] [place] [address] Aspartate aminotransferase (AST) 13 U/L Normal 7-40 [facility] Comment on above: Performed By: #### C HUDSON ####[facility] [address] [place] [address] Bilirubin (total) 0.5 mg/dL Normal 0.0-1.5 [facility] Comment on above: Performed By: #### C HUDSON ####[facility] [address] [place] [address] Calcium 9.4 mg/dL Normal 8.5-10.5 [facility] Comment on above: Performed By: #### C MILAB ####[facility] [address] [place] [address] Chloride 88 mmol/L Low 98-110 [facility] Comment on above: Performed By: #### C KCYANIB ####[facility] [address] [place] [address] CO2 25 mmol/L Normal 23-32 [facility] Comment on above: Performed By: #### C MILAB ####[place] [address] Creatinine 1.38 mg/dL Normal 0.70-1.40 [facility] Comment on above: Performed By: #### C MILAB ####[place] [address] eGFR (non-black) 39 . Normal [facility] Comment on above: Result Comment: eGFR (Estimated GFR) Units of measure: mL/min/1.73 meters squaredeGFR is derived from the reexpressed MDRD Study equation using the following parameters: serum creatinine, age, gender and race. The creatinine assay has been calibrated to be traceable to IDMS.An eGFR <60 mL/min/1.73m2 for >3 months is consistent with chronic kidney disease. Refer to KDOQI guidelines for clinical interpretation.In patients with unstable renal function, e.g. those with acute kidney injury, the eGFR may not accurately reflect actual GFR. Performed By: #### C MILAB ####[place] [address] eGFR (non-black) 47 mL/min/{1.73_m2} Normal [facility] Comment on above: Performed By: #### C ARIAKMB ####[place] [address] Glucose mass conc 198 mg/dL High 65-100 [facility] Comment on above: Performed By: #### C ARIAKMB ####[place] [address] Potassium molar conc 3.9 mmol/L Normal 3.5-5.0 [facility] Comment on above: Performed By: #### C MILAB ####[place] [address] Protein 6.2 g/dL Normal 6.0-8.4 [facility] Comment on above: Performed By: #### C MILAB ####[place] [address] Sodium 131 mmol/L Low 132-148 [facility] Comment on above: Performed By: #### C KCKMB ####[facility] [address] [place] [address] Urea nitrogen 40 mg/dL High 8-25 [facility] Comment on above: Performed By: #### C KCYANIB ####[facility] [address] [place] [address] Alanine aminotransferase (ALT) 39 U/L Normal 0-45 [facility] Comment on above: Performed By: #### C KCYANIB ####[facility] [address] [place] [address] Albumin 3.6 g/dL Normal 3.5-5.0 [facility] Comment on above: Performed By: #### C KCYANIB ####[facility] [address] [place] [address] Alkaline phosphatase (ALP) 69 U/L Normal 40-150 [facility] Comment on above: Performed By: #### C KCYANIB ####[facility] [address] [place] [address] Anion gap 17 mmol/L High 0-15 [facility] Comment on above: Performed By: #### C KCKMB ####[facility] [address] [place] [address] Aspartate aminotransferase (AST) 14 U/L Normal 7-40 [facility] Comment on above: Performed By: #### C KCKMB ####[facility] [address] [place] [address] Bilirubin (total) 0.6 mg/dL Normal 0.0-1.5 [facility] Comment on above: Performed By: #### C KCKMB ####[facility] [address] [place] [address] Calcium 5.3 mg/dL Low 8.5-10.2 [facility] Comment on above: Result Comment: Call ed to and read back by: Bibiana Cabrera [address] [place] [address] 12/21/16 05:36 Kimberly Performed By: #### C KCKMB ####[facility] [address] [place] [address] Chloride 88 mmol/L Low 98-110 [facility] Comment on above: Performed By: #### C KCKMB ####[facility] [address] [place] [address] CO2 25 mmol/L Normal 23-32 [facility] Comment on above: Performed By: #### C KCKMB ####[facility] [address] [place] [address] Creatinine 1.41 mg/dL High 0.70-1.40 [facility] Comment on above: Performed By: #### C KCKMB ####[facility] [address] [place] [address] eGFR (non-black) 46 mL/min/{1.73_m2} Normal [facility] Comment on above: Performed By: #### C KCKMB ####[place] [address] eGFR (non-black) 38 . Normal [facility] Comment on above: Result Comment: eGFR (Estimated GFR) Units of measure: mL/min/1.73 meters squaredeGFR is derived from the reexpressed MDRD Study equation using the following parameters: serum creatinine, age, gender and race. The creatinine assay has been calibrated to be traceable to IDMS.An eGFR <60 mL/min/1.73m2 for >3 months is consistent with chronic kidney disease. Refer to KDOQI guidelines for clinical interpretation.In patients with unstable renal function, e.g. those with acute kidney injury, the eGFR may not accurately reflect actual GFR. Performed By: #### C KCKMB ####[facility] [address] [place] [address] Glucose mass conc 208 mg/dL High 65-100 [facility] Comment on above: Performed By: #### C KCKMB ####[facility] [address] [place] [address] Potassium molar conc 7.3 mmol/L Critically high 3.7-5.1 [facility] Comment on above: Result Comment: Call ed to and read back by: Bibiana Cabrera [address] [place] [address] 12/21/16 05:36 Kimberly Performed By: #### C KCKMB ####[place] [address] Protein 6.0 g/dL Normal 6.0-8.4 [facility] Comment on above: Performed By: #### C KCKMB ####[facility] [address] [place] [address] Sodium 130 mmol/L Low 132-148 [facility] Comment on above: Performed By: #### C KCKMB ####[facility] [address] [place] [address] Urea nitrogen 42 mg/dL High 8-25 [facility] Comment on above: Performed By: #### C KCKMB ####[facility] [address] [place] [address] NURSING PROGon 12-21-2016 NURSING PROG HNO ID: [id number] thor: Kassidy (Rn) Justa, RNService: (none)Author Type: Registered NurseType: Nursing Progress NoteFiled: 12/21/2016 5:38 AMNote Text: Nursing Progress NotePatient Name: Laura StarkMRN: [id number] Location: [place] [address]/[id number]___ Daily Note: Called Dr. Sameer lyons regarding morning labs. Orders received.This note was completed by: Kassidy Marr RN Normal [facility] PROGRESSon 12-21-2016 PROGRESS HNO ID: [id number] thor: Ronny De La TorreuService: Cardiovascular DiseaseAuthor Type: PhysicianType: Progress NotesFiled: 12/21/2016 9:00 PMNote Text:INPATIENT CONSULT PROGRESS NOTESPatient Name: Laura StarkMRN: [id number] of SERVICE: 12/21/2016TIME of SERVICE: 8:53 PMCONSULTING SERVICE: CardiologyINTERVAL HPI: Breathing is better and it seems like she is going in andout of AF. Still has non productive cough. No chest pain or palpitationsDRUGS REVIEWED:ASSESSMENT AND PLAN:AF with controlled rate: status post PAFExacerbation of asthma and tracheobronchitisAtelectas isObesity and probable obstructive sleep apneaHyperactive thyroid: currently on methimazoleContinue current therapy?PHYSICAL EXAM:Blood pressure 135/80, pulse 67, temperature 36.9 ?C (98.4 ?F),temperature source Oral, resp. rate 20, height 157.5 cm (5' 2), edpiyd840.8 kg (237 lb 10.5 oz), SpO2 96 %.?Body mass index is 43.47 kg/(m2).GENERAL: Alert, no distress, cooperativeNECK: No jugulovenous distention, No carotid bruits, Carotid pulse normalcontour, SuppleLUNGS: Lungs clear to auscultation, Good diaphragmatic excursionCARDIAC: irregular S1 and S2; no rubs, murmurs, or gallopsABDOMEN:benign, soft, flat, non-tender, no masses, normal bowel soundsNEURO: Awake, alert and oriented x 3EXTREMITIES: Extremities normal, no deformities, edema, clubbing or skindiscoloration. Good capillary refill., No ulcersPULSES: 2+ radial, 2+LABS: CBC:Recent Labs 417WBC 10.56RBC 4.41HB 12.1HCT 37.8PLT 227MCV 85.7MCH 27.4MPV 10.3CMP:Recent Labs 555NA 131*K 3.9CHLOR 88*CO2 25BUN 40*CREAT 1.38GLUC 198*TPROT 6.2CA 9.4TBILI 0.5ALKPHOS 70ALT 39AST 13ANION 18*Cardiac Enzymes: No results for input(s): CK, MB, CKMB, TROPT in the last24 hours.SIGNATURE: BECKY Fountain; [phone]: December 21, 2016TIME: 8:53 PM Normal [facility] PROGRESS HNO ID: [id number] thor: Yimi Yuan (Academic Support Assistant)Service: PharmacyAuthor Type: PharmacistType: Progress NotesFiled: 12/21/2016 4:45 PMNote Text:PHARMACY VANCOMYCIN DOSING NOTEPatient Name: Laura Stark Admission Date:12/15/2016Date of Consult: 12/21/2016 Time of Consult: 4:41 PMIndication: PneumoniaGoal Range: 15-20 mcg/mLRECOMMENDATIONS/PLAN :Pharmacy consulted for vancomycin dosing for Laura Stark, a 61 yearold, female who is being treated with vancomycin1. Patient is currently ordered Vancomycin 1.5 g IV q24h. Today is day 7of therapy.2. The most recent vancomycin level was 26.8 mcg/mL drawn at 1220 on 12/21. This is a 23 hour level on the 3rd day of current therapy.3. Vancomycin level above therapeutic goal range. Continue to holdfurther vancomycin IV doses.4. The next vancomycin level will be ordered for 12/22 unless clinicallyindicated sooner. (Pharmacy will order)We will follow patient renal function, vancomycin levels and doses withyou during the course of therapy. Additional recommendations will appearin follow up notes. If you have any questions, please contact pharmacy [phone].Age: 61 year oldAllergies:ALLERGIESAlle rgen Reactions- Clindamycin Hives- Macrodantin [Nitrof* Other: See Comments Off-balance- Percocet [Oxycodone* Other: See Comments Nausea- Sulfa (Sulfonamide * Rash, Itching localized rash and itching all over- Zithromax [Azithrom* Rash, Itching localized rash and itching all over- Zenicef [Other] Rash, Itching itching in mouth; localized rash and itching all overLast 3 Encounter Wt Readings: Date: Wt: 12/15/2016 100.3 kg (221 lb 1.6 oz) 04/12/2016 115.2 kg (254 lb) 10/04/2015 113.4 kg (250 lb)Last 1 Encounter Ht Readings: Date: Ht: 12/15/2016 157.5 cm (5' 2)CrCl: 46.8 mL/minTemp (24hrs), Av.7 ?C (98 ?F), Min:36.4 ?C (97.5 ?F), Max:36.9 ?C(98.4 ?F) - Current Temp: 36.5 ?C (97.7 ?F)LabsBUN (mg/dL)Date Value12/21/2016 40 (H)12/21/2016 42 (H)12/19/2016 37 (H) Creatinine (mg/dL)Date Value12/21/2016 1.3811 1.41 (H)12/19/2016 1.22 WBC (k/uL)Date Value12/21/2016 10.5611 7.5911 10.96 Vancomycin Levels:Vancomycin, result (ug/mL)Date Value12/21/2016 26.8 (H)12/19/2016 16.1 YIMI YUAN, INVESTOR RELATIONS ANALYST [facility] PROGRESS HNO ID: [id number] thor: Kiara Fleming: General Internal MedicineAuthor Type: PhysicianType: Progress NotesFiled: 12/21/2016 1:24 PMNote Text:INTERNAL MEDICINE PROGRESS NOTEADMITTING PHYSICIAN: Kiara SternJECTIVECHIALENA COMPLAINT: Having more cough and wheezing today, c/o constipation,Current Facility-Administered Medications:guaiFENesin 1,200 mg ER tab(s) (MUCINEX) 1,200 mg ORAL q 12 Hbudesonide 0.5 mg/2 mL 0.5 mg (PULMICORT) 0.5 mg INHALATION BIDapixaban 5 mg tab(s) (ELIQUIS) 5 mg ORAL BIDaspirin, enteric coated 81 mg tab(s) (ASPIRIN, ENTERIC COATED) 81 mg ORALDAILYmetHIMazole 5 mg tab(s) (TAPAZOLE) 5 mg ORAL DAILYinsulin NPH human 5 Units injection (intermediate acting) (NovoLIN N,HumuLIN N) 5 Units SUBCUTANEOUS BIDmorphine 1-2 mg injection 1-2 mg INTRAVENOUS q 4 H PRNdigoxin 0.25 mg tab(s) (LANOXIN) 0.25 mg ORAL DAILYpolyethylene glycol 3350 17 g packet (MIRALAX, GLYCOLAX) 17 g ORAL DAILYdiltiazem CD 240 mg cap(s) (CARDIZEM CD, CARTIA XT) 240 mg ORAL DAILYmethylPREDNISolone sod succinate(PF) 40 mg injection (Solu-MEDROL) 40 mgINTRAVENOUS q 12 Hondansetron (PF) 4 mg injection (ZOFRAN) 4 mg INTRAVENOUS q 6 H PRN0.9% NaCl 10 mL 10 mL INTRAVENOUS q 12 H0.9% NaCl 20 mL 20 mL INTRAVENOUS PRNcodeine-guaiFENesin 5-10 mL oral liquid (ROBITUSSIN AC) 5-10 mL ORAL q 6 HPRNdextrose 40 % 15 g (INSTA-GLUCOSE) 15 g ORAL PRNOrglucagon 1 mg injection (GLUCAGEN) 1 mg INTRAMUSCULAR PRNOrdextrose 50% in water 25 mL syringe 12.5 g INTRAVENOUS PRNinsulin lispro injection (rapid acting) (HumaLOG) SUBCUTANEOUS w MEALSinsulin lispro injection (rapid acting) (HumaLOG) SUBCUTANEOUS AT BEDTIMEHYDROcodone 5 mg - acetaminophen 325 mg tablet (NORCO) 1-2 tablet ORAL q 6H PRNcefTRIAXone 1 g in sterile water 10 mL (ROCEPHIN) 1 g INTRAVENOUS q 24 Hipratropium-albuterol 3 mL nebulizer solution (DUONEB) 3 mL INHALATION QIDmontelukast 10 mg tab(s) (SINGULAIR) 10 mg ORAL AT BEDTIMEmagnesium oxide 400 mg tab(s) (MAG-OX) 400 mg ORAL DAILYspironolactone 25 mg tab(s) (ALDACTONE) [address] mg tab(s) (PROTONIX) 40 mg ORAL DAILYhydroCHLOROthiazide 25 mg tab(s) (HYDRODIURIL, ESIDRIX) 25 mg ORAL DAILYvancomycin dosing and monitoring per pharmacy OTHER As Directedipratropium-albute rol 3 mL nebulizer solution (DUONEB) 3 mL INHALATION q 2H PRNiv contrast (radiology procedure) INTRAVENOUS DIRECTED PRNINTERVAL HISTORY OF PRESENT ILLNESS: Remains in NSR. No n/v/d.No orthopnea, pnd,cpain, fever, chills.Consult notes reviewed.OBJECTIVEPHYSICAL EXAM:Blood pressure 126/82, pulse 89, temperature 36.5 ?C (97.7 ?F),temperature source Oral, resp. rate 20, height 157.5 cm (5' 2), .3 kg (221 lb 1.6 oz), SpO2 98 %.Body mass index is 40.44 kg/(m2).GENERAL: Morbidly Obese, Alert, no DistressNECK: SuppleLUNGS: decreased a/e, occ ronchi.CARDIAC: s1s2: regABDOMEN: Soft, nontenderEXTREMITIES: Extremities normal, no deformities, edema, clubbing or skindiscoloration. Good capillary refill.NEURO: Alert, oriented X 3, Gait normal. Non-focal. Reflexes normal andsymmetric. Sensation grossly intact.PULSES: 2+ radialDATA:Diagnostic tests reviewed for today's visit:Most recent labs and imaging results.ASSESSMENT/PLANAct aravind Problems: Acute Asthma exacerbation with HCAP? recent sputum cx with MRSA and E.coli: continue iv abx and iv steroids. Continue nebs. Noted Pulmonary eval.Add codeine cough syrup, Weakness POA: Yes Assessment AND Plan: due to above. Obesity, Class III, BMI >= 40 (morbid obesity) E66.01 Assessment AND Plan: encourage wt. Loss. Hyperglycemia due to steroids: Add SSI.PAF:continue eliquis,appreciate Endo eval for hyperthyroidism,Appreciate : Cardio eval.Constipation:Add mag citrate x1, and d[place]col[place],Continue miralax.D/w Nursing and pulmonary.SIGNATURE: Kiara Nugent MD PATIENT NAME: Laura Stark PAGER/CONTACT #: [facility] PROGRESS HNO ID: [id number] thor: Ronny AntoinerapuService: Cardiovascular DiseaseAuthor Type: PhysicianType: Progress NotesFiled: 12/20/2016 10:33 PMNote Text:INPATIENT CONSULT PROGRESS NOTESPatient Name: Laura StarkMRN: [id number] of SERVICE: 12/20/2016TIME of SERVICE: 10:26 PMCONSULTING SERVICE: CardiologyINTERVAL HPI: Feels better at rest and remains in AF with controlledrate. She is currently on methimazole and I would probably would stopamiodarone since it could affect thyroid function significantly.DRUGS REVIEWED:ASSESSMENT AND PLAN:AF with controlled rateExacerbation of asthma and tracheobronchitisAtelectas isObesity and probable obstructive sleep apneaWould stop amiodaronePHYSICAL EXAM:Blood pressure 149/80, pulse 87, temperature 36.9 ?C (98.4 ?F),temperature source Oral, resp. rate 20, height 157.5 cm (5' 2), .8 kg (237 lb 10.5 oz), SpO2 96 %.Body mass index is 43.47 kg/(m2).GENERAL: Alert, no distress, cooperativeNECK: No jugulovenous distention, No carotid bruits, Carotid pulse normalcontour, SuppleLUNGS: Lungs clear to auscultation, Good diaphragmatic excursionCARDIAC: irregular S1 and S2; no rubs, murmurs, or gallopsABDOMEN:benign, soft, flat, non-tender, no masses, normal bowel soundsNEURO: Awake, alert and oriented x 3EXTREMITIES: Extremities normal, no deformities, edema, clubbing or skindiscoloration. Good capillary refill., No ulcersPULSES: 2+ radial, 2+ carotidLABS: CBC: No results for input(s): WBC, RBC, HB, HCT, PLT, MCV, MCH, MPV,RDW in the last 24 hours.CMP: No results for input(s): NA, K, CHLOR, CO2, BUN, CREAT, GLUC, TPROT,CA, MG, ALBUMIN, TBILI, ALKPHOS, ALT, AST, ANION in the last 24 hours.Cardiac Enzymes: No results for input(s): CK, MB, CKMB, TROPT in the last24 hours.SIGNATURE: Ronny Valente [facility]; [phone]: December 20, 2016TIME: 10:26 PM [facility] US THYROID/PARATHYROIDon US THYROID/PARATHYROID * * *Final Report * * *DATE OF EXAM: Dec 21 2016 11:00AM NATHALIE 1048 - US THYROID/PARATHYROID / REASON: Hyperthyroidism * * * * Physician Interpretation * * * * Ultrasound of the thyroid glandHistory: Hyperthyroidism. Status post LEFT lobe biopsyFindings: Per technologist imaging limited by body habitus.Right lobe: The dimensions of the lobe are 4.2 x 1.7 x 1.7 cm. 5 x 3 x 4 cystic density upper pole. Anterior hypoechoic density 4-7 mm. Posterior mid hypoechoic density 4-6 mm.Left lobe: The dimensions of the lobe are 4.6 x 1.7 x 1.8 cm. Lateral heterogeneous nodule 1.4 x 0.9 x 1.6 cm.Isthmus: unremarkableImages were stored in a permanent archive.IMPRESSION:Thyroid nodules as noted in results.Breakdown Worker: PSCB Transcribe Date/Time: Dec 21 2016 11:35ADictated by : JULIEN MACHUCA MDThis examination was interpreted and the report reviewed and electronically signed by: JULIEN MACHUCA MD on Dec 21 2016 11:38AM [id number] Normal [facility] Vancomycinon 12-21-2016 Vancomycin 26.8 ug/mL High 5.0-20.0 [facility] Comment on above: Result Comment: Refe rence ranges and high/low indicator flags are provided as general guidelines only. The treating physician must determine appropriate target levels/dosing based on the specific clinical situation. Performed By: #### C KCKMB ####[facility] [address] [place] [id number] CONSULT PROGon 12-20-2016 CONSULT PROG HNO ID: [id number] thor: PARVIN Roldanervice: Infectious DiseaseAuthor Type: PhysicianType: Consult Progress NoteFiled: 12/20/2016 2:15 PMNote Text:INFECTIOUS DISEASE PROGRESS NOTEPatient Name: Laura Stark HISTORY:Stable on floor. Up in chair. No fevers. SOB is better. Still weak. Nodiarrhea. ROS checked in details. All qs answered.Patient Active Hospital Problem List: Weakness (12/16/2016) Obesity, Class III, BMI >= 40 (morbid obesity) E66.01 (12/16/2016) Malnutrition of moderate degree (HCC) (12/16/2016)ASSESSMENT:MRSA and E coli HCAPButtock woundAcute respiratory failureFailed OP PO abx treatment w doxyWeaknessObesity, Class III, BMI >= 40Malnutrition of moderate degreeRECOMMENDATIONS:Cont inue vancomycin and ceftriaxoneResp viral panel checkSupportive carePO abx at discharge anticipated likely doxy and omnicef x 5 days moreWean [id number] careMEDICATIONS: reviewed.Current hospital medications:guaiFENesin 1,200 mg ER tab(s) (MUCINEX) 1,200 mg ORAL q 12 Hbudesonide 0.5 mg/2 mL 0.5 mg (PULMICORT) 0.5 mg INHALATION BIDapixaban 5 mg tab(s) (ELIQUIS) 5 mg ORAL BIDvancomycin 1.5 g in D5W 250 mL 1.5 g INTRAVENOUS q 24 HRaspirin, enteric coated 81 mg tab(s) (ASPIRIN, ENTERIC COATED) 81 mg ORALDAILYmetHIMazole 5 mg tab(s) (TAPAZOLE) 5 mg ORAL DAILYinsulin NPH human 5 Units injection (intermediate acting) (NovoLIN N,HumuLIN N) 5 Units SUBCUTANEOUS BIDmorphine 1-2 mg injection 1-2 mg INTRAVENOUS q 4 H PRNdigoxin 0.25 mg tab(s) (LANOXIN) 0.25 mg ORAL DAILYpolyethylene glycol 3350 17 g packet (MIRALAX, GLYCOLAX) 17 g ORAL DAILYdiltiazem CD 240 mg cap(s) (CARDIZEM CD, CARTIA XT) 240 mg ORAL DAILYmethylPREDNISolone sod succinate(PF) 40 mg injection (Solu-MEDROL) 40 mgINTRAVENOUS q 12 Hondansetron (PF) 4 mg injection (ZOFRAN) 4 mg INTRAVENOUS q 6 H PRNamiodarone 400 mg tab(s) (PACERONE) 400 mg ORAL TID0.9% NaCl 10 mL 10 mL INTRAVENOUS q 12 H0.9% NaCl 20 mL 20 mL INTRAVENOUS PRNcodeine-guaiFENesin 5-10 mL oral liquid (ROBITUSSIN AC) 5-10 mL ORAL q 6 HPRNdextrose 40 % 15 g (INSTA-GLUCOSE) 15 g ORAL PRNglucagon 1 mg injection (GLUCAGEN) 1 mg INTRAMUSCULAR PRNdextrose 50% in water 25 mL syringe 12.5 g INTRAVENOUS PRNinsulin lispro injection (rapid acting) (HumaLOG) SUBCUTANEOUS w MEALSinsulin lispro injection (rapid acting) (HumaLOG) SUBCUTANEOUS AT BEDTIMEHYDROcodone 5 mg - acetaminophen 325 mg tablet (NORCO) 1-2 tablet ORAL q 6H PRNcefTRIAXone 1 g in sterile water 10 mL (ROCEPHIN) 1 g INTRAVENOUS q 24 Hipratropium-albuterol 3 mL nebulizer solution (DUONEB) 3 mL INHALATION QIDmontelukast 10 mg tab(s) (SINGULAIR) 10 mg ORAL AT BEDTIMEmagnesium oxide 400 mg tab(s) (MAG-OX) 400 mg ORAL DAILYspironolactone 25 mg tab(s) (ALDACTONE) [address] 40 mg tab(s) (PROTONIX) 40 mg ORAL DAILYhydroCHLOROthiazide 25 mg tab(s) (HYDRODIURIL, ESIDRIX) 25 mg ORAL DAILYvancomycin dosing and monitoring per pharmacy OTHER As Directedipratropium-albute rol 3 mL nebulizer solution (DUONEB) 3 mL INHALATION q 2H PRNiv contrast (radiology procedure) INTRAVENOUS DIRECTED PRNPHYSICAL EXAM:Vital signs: BP 162/82 Pulse 94 Temp 36.3 ?C (97.4 ?F) (Oral) Resp18 Ht 157.5 cm (5' 2) Wt 107.8 kg (237 lb 10.5 oz) SpO2 96% BMI43.47 kg/m2Temp (24hrs), Av.7 ?C (98.1 ?F), Min:36.3 ?C (97.4 ?F), Max:37.1 ?C(98.8 ?F)General: alert, oriented, NADLungs: bilaterally clear to auscultationHeart: regular rate and rhythmAbdomen: soft, non tender, non distended, BS+Extremities: no edemaNo rashesNo joint inflammationNeck suppleLines okNo CVATLabs:Recent Labs 12/19/1703WBC 7.59 10.96HB 11.3* 11.8HCT 35.8* 36.7PLT 206 267NA 136 130*K 3.6 4.0CHLOR 96* 90*CO2 25 22*BUN 37* 44*CREAT 1.22 1.41*Microbiology data: reviewedImaging data: Du Mcginnis [id number] 2 PM [facility] CONSULT PROG HNO ID: [id number] thor: Jaya Darby RaiService: Pulmonary DiseaseAuthor Type: PhysicianType: Consult Progress NoteFiled: 12/20/2016 1:28 PMNote Text:RESPIRATORY INSTITUTEPULMONARY MEDICINEINPATIENT CONSULT PROGRESS NOTESERVICE DATE: 12/20/2016ASSESSMENT:Asthma with acute exacerbationBilateral atelectasisRecent sputum (+) E coli and MRSA ([facility] - 12/06/16)Paroxysmal atrial fibrillation with RVRRemote history of DVT/PEMorbid obesitySuspected OSARECOMMENDATIONS:Nebuliz ed albuterol-ipratropium 4 times daily and up to every 2 hours asneeded.SoluMedrol 40 mg every 12 hours.Antibiotics as per ID - vancomycin/Ceftriaxone.Muc inex 1200 mg every 12 hours.Start Pulmicort 0.5 nebulized BIDCheck Respiratory Virus PanelPlan discussed in detail with patient, RN and primary attending. Patientverbalizes understanding and is in agreement with the current managementplan.Total time spent in patient care includes but is not limited to patient/family discussions, collaborative discussions with other healthcareproviders, review of medical records, review of laboratory tests,radiology images/ results, microbiology and pathology data.SUBJECTIVEINTERVAL HPI:No acute events overnight. Patient reports minimal improvement sinceadmission despite broad spectrum antibiotics and IV steroids. Continuesto wheeze. Cough minimally productive now. No fevers/chills. Nohypoxia. She does have lower extremity edema, which she thinks hasworsened due to her lack of activity.Ms. Stark is a 61 yo female who presented to [place] 12/15/2016 withcomplaints of cough, dyspnea and fever. Her past medical history includesasthma, DVT/PE, obesity. Former 20 pack year smoker, quit in 1995. Lowgrade fever on admission, T 99.9*F. CT of the chest was obtained withoutIV contrast and showed mild atelectasis bilaterally. No definiteconsolidations. On admission, she was started on IV vancomycin +ceftriaxone, as well as IV steroids. She has also been started onCardizem + Pradaxa as recommended by Cardiology for PAF with RVR. She hasalso been evaluated by Endocrinology for hyperthyroidism - for which shewas started on Methimazole. Patient reports recent sputum positive for E.coli and MRSA (12/06) [facility] post-[facility]charge. No recent PFTs.As per patient she has been clinically stable from asthma perspective forlast several years.MEDICATIONS:Current Facility-Administered Medications:apixaban 5 mg tab(s) (ELIQUIS) 5 mg ORAL BIDvancomycin 1.5 g in D5W 250 mL 1.5 g INTRAVENOUS q 24 HRaspirin, enteric coated 81 mg tab(s) (ASPIRIN, ENTERIC COATED) 81 mg ORALDAILYmetHIMazole 5 mg tab(s) (TAPAZOLE) 5 mg ORAL DAILYinsulin NPH human 5 Units injection (intermediate acting) (NovoLIN N,HumuLIN N) 5 Units SUBCUTANEOUS BIDmorphine 1-2 mg injection 1-2 mg INTRAVENOUS q 4 H PRNdigoxin 0.25 mg tab(s) (LANOXIN) 0.25 mg ORAL DAILYpolyethylene glycol 3350 17 g packet (MIRALAX, GLYCOLAX) 17 g ORAL DAILYdiltiazem CD 240 mg cap(s) (CARDIZEM CD, CARTIA XT) 240 mg ORAL DAILYmethylPREDNISolone sod succinate(PF) 40 mg injection (Solu-MEDROL) 40 mgINTRAVENOUS q 12 Hondansetron (PF) 4 mg injection (ZOFRAN) 4 mg INTRAVENOUS q 6 H PRNamiodarone 400 mg tab(s) (PACERONE) 400 mg ORAL TID0.9% NaCl 10 mL 10 mL INTRAVENOUS q 12 H0.9% NaCl 20 mL 20 mL INTRAVENOUS PRNcodeine-guaiFENesin 5-10 mL oral liquid (ROBITUSSIN AC) 5-10 mL ORAL q 6 HPRNdextrose 40 % 15 g (INSTA-GLUCOSE) 15 g ORAL PRNOrglucagon 1 mg injection (GLUCAGEN) 1 mg INTRAMUSCULAR PRNOrdextrose 50% in water 25 mL syringe 12.5 g INTRAVENOUS PRNinsulin lispro injection (rapid acting) (HumaLOG) SUBCUTANEOUS w MEALSinsulin lispro injection (rapid acting) (HumaLOG) SUBCUTANEOUS AT BEDTIMEHYDROcodone 5 mg - acetaminophen 325 mg tablet (NORCO) 1-2 tablet ORAL q 6H PRNcefTRIAXone 1 g in sterile water 10 mL (ROCEPHIN) 1 g INTRAVENOUS q 24 Hipratropium-albuterol 3 mL nebulizer solution (DUONEB) 3 mL INHALATION QIDmontelukast 10 mg tab(s) (SINGULAIR) 10 mg ORAL AT BEDTIMEmagnesium oxide 400 mg tab(s) (MAG-OX) 400 mg ORAL DAILYspironolactone 25 mg tab(s) (ALDACTONE) [address] 40 mg tab(s) (PROTONIX) 40 mg ORAL DAILYhydroCHLOROthiazide 25 mg tab(s) (HYDRODIURIL, ESIDRIX) 25 mg ORAL DAILYvancomycin dosing and monitoring per pharmacy OTHER As Directedipratropium-albute rol 3 mL nebulizer solution (DUONEB) 3 mL INHALATION q 2H PRNguaiFENesin 600 mg ER tab(s) (MUCINEX) 600 mg ORAL q 12 Hiv contrast (radiology procedure) INTRAVENOUS DIRECTED PRNCURRENT ALLERGIES:ALLERGIESAllerge n Reactions- Clindamycin Hives- Macrodantin [Nitrof* Other: See Comments Off-balance- Percocet [Oxycodone* Other: See Comments Nausea- Sulfa (Sulfonamide * Rash, Itching localized rash and itching all over- Zithromax [Azithrom* Rash, Itching localized rash and itching all over- Zenicef [Other] Rash, Itching itching in mouth; localized rash and itching all overPatient Vitals for the past 24 hrs: BP Temp Temp src Pulse Resp PbC52012/20/16 1106 - - - 90 18 -12/20/16 1057 - - - 93 18 98 %12/20/16 1004 147/89 37.1 ?C (98.8 ?F) Oral 89 20 91 %12/20/16 0814 126/63 37 ?C (98.6 ?F) Oral 83 20 96 %12/20/16 0735 - - - 78 20 -12/20/16 0725 - - - 87 20 97 %12/20/16 0634 123/57 - - 85 - 95 %12/20/16 0408 126/66 36.5 ?C (97.7 ?F) Oral 85 19 95 %12/20/16 0200 132/77 - - (!) 127 - -12/20/16 0055 - - - (!) 135 20 -12/20/16 0045 - - - (!) 136 20 95 %12/20/16 0008 124/73 36.5 ?C (97.7 ?F) Oral (!) 138 20 96 %12/19/16 2200 129/75 - - (!) 122 - -12/19/164 - - - (!) 140 20 -12/19/16 2044 - - - (!) 138 20 97 %12/19/16 181 139/73 - - (!) 139 - -12/19/16 1814 133/79 - - (!) 143 - -12/19/16 1809 131/86 - - (!) 143 - -12/19/16 1637 102/76 36.7 ?C (98.1 ?F) Oral (!) 142 19 95 %12/19/16 1620 - - - (!) 138 20 -12/19/16 1610 - - - (!) 130 20 97 %12/19/16 1145 - - - 115 20 -12/19/16 1133 131/76 37 ?C (98.6 ?F) Oral 115 18 97 %12/19/16 1129 - - - 105 20 96 %Intake/Output Summary (Last 24 hours) at 12/20/16 1128Last data filed at 12/20/16 0948 Gross per 24 hourIntake 1430 mlOutput 1075 mlNet 355 mlOBJECTIVEPHYSICAL EXAM:BP 147/89 Pulse 90 Temp (Src) 98.8 (Oral) Resp 18 Ht 5' 2 (1.58m) Wt 237 lb 10.5 oz (107.8kg) SpO2 98% BMI 43.46 kg/(m2).Room airGeneral appearance: Morbidly obese, well appearing, alert, in no acutedistressRespiratory: respirations are unlabored, diffuse wheezing bilaterallyCardiovascular: irregularly irregular rhythm, rate controlled at time ofexam, no murmurs rubs gallops notedAbdomen: Soft, non tender, non distended. Normal bowel sounds.Extremities: Normal pulses. 1-2+ pitting of bilateral lower extremities.DATADiagnostic tests reviewed for today's visit, films/specimens werepersonally reviewed by me:Most recent labs and imaging results.CBC, Coags, BMP, Mg, PhosRecent Labs 12/19/1703WBC 7.59 10.96HB 11.3* 11.8HCT 35.8* 36.7PLT 206 267NA 136 130*K 3.6 4.0CHLOR 96* 90*CO2 25 22*BUN 37* 44*CREAT 1.22 1.41*GLUC 191* 224*CA 9.6 9.5Liver Function, Amylase, AND LipaseRecent Labs 12/19/1703TPROT 6.1 6.2ALB 3.7 3.5ALT 33 31AST 14 15ALKPHOS 69 75TBILI 0.4 0.4SIGNATURE: Elvia Diaz PA-C PATIENT NAME: Laura StarkDATE: December 20, 2016 : 11:28 AM PAGER/CONTACT #: [phone] have personally interviewed and examined the patient.I have personally verified elements of the exam listed above. Intervalchanges or irregualrities are as noted.I have personally and independently reviewed CXR images and PFT tracingsand results (see data section).I have personally reviewed the problem list above and concur. Changes, ifany, are noted.I have personally reviewed the plan list above and concur. Changes, ifany, are noted.Virgen Voss Rai, Respiratory InstituteThe Bellevue HospitalPager #[phone] [facility] NURSING PROGon 12-20-2016 NURSING PROG HNO ID: [id number] thor: Kassidy Del Cid) Carlos Marr: (none)Author Type: Registered NurseType: Nursing Progress NoteFiled: 12/20/2016 7:30 PMNote Text: Nursing Progress NotePatient Name: Laura StarkMRN: [id number] Location: [place] 071241/[id number]___ Daily Note: Received report from [place]. Patient up to chair. Denies any painor SOB right now. Will continue to monitor. Call light within reach.This note was completed by: Kassidy Marr RN [facility] NURSING PROG HNO ID: [id number] thor: Sydnee Del Cid) Librado Alcantarice: (none)Author Type: Registered NurseType: Nursing Progress NoteFiled: 12/20/2016 11:34 AMNote Text: Nursing Progress NotePatient Name: Laura StarkMRN: [id number] Location: [place]/[id number]___ Daily Note:0850- Patient SR on tele, converted to SR at 0400. Spoke with Dr. Russ.Orders received to give PO cardizem as scheduled, adjust IV cardizem to7.5 ml/hr at 0930, then discontinue IV cardizem at 1000.0930- IV cardizem rate adjusted to 7.5 ml/hr. SR on tele, HR 80s.1000- IV cardizem stopped. SR on tele, HR 80s.This note was completed by: Sydnee Alcantar RN [facility] NURSING PROG HNO ID: [id number] thor: Sharee (Rn) Loyd RNService: (none)Author Type: Registered NurseType: Nursing Progress NoteFiled: 12/20/2016 7:02 AMNote Text: Nursing Progress NotePatient Name: Laura StarkMRN: [id number] Location: [facility]/[id number]___ Daily Note:1945-Pt assessed. No needs at this time. Call light in reach. Reportsno chest pain/pressure at this time.5-Pt given meds. RT in to give neb tx. Pt HR 140 on tele; ptasymptomatic. Will cont. To monitor.2300- No labs ordered for a.m. Note from Dr. Mia Correa stated wants tomonitor cbc and hepatic fx, as well as thyroid. Call to Dr. Nugent toobtain lab orders for clinician collect in a.m. Phone went silent afterasking about lab orders; unsure if call was ended or put on hold.0045-Pt request breathing tx. CAll RT for nebulizer. New bag of Cardizemsent from pharmacy and hung at 15 mg/hr. Pt HR still in 120-140 range.Continuing to monitor. Will not titrate at this time.0630-Morning labs drawn from PICC. Flushed line w/20cc after draws. Sentto lab via tube system. Pt flipping back to SR. Dr. Nugent called. Leftmsg that pt was in SR again and cardizem needed titrated to call back ifnew orders needed. Awaiting return callThis note was completed by: Sharee Harp RN [facility] NUTRITIONon 12-20-2016 NUTRITION HNO ID: [id number] thor: Terrie Cesar) LacieService: Nutrition TherapyAuthor Type: Registered DietitianType: NutritionFiled: 12/20/2016 11:35 AMNote Text:NUTRITION UPDATE NOTE -PATIENT NAME: Laura StarkMRN: [id number] OF : 1955SERVICE DATE: December 20, 2016Per HPI: Acute Asthma exacerbation Adequate intake to meet needs. 75-100% of meals. Reviewed current labs and physician progress notes. Will follow- up in 7 days or as consulted.Discharge Nutrition Recommendations:Diet: regularMNT Billing Type: Routine Care/15 minNumber of Increments: 1Mjosi Trejo RD, LD [facility] PLAN OF CAREon 12-20-2016 PLAN OF CARE HNO ID: [id number] thor: Natasha Enciso (Rn) LEVI Hitchcockervice: Case ManagementAuthor Type: Registered NurseType: Plan of CareFiled: 12/20/2016 11:46 AMNote Text:MULTIDISCIPLINARY ROUNDSSERVICE DATE: 12/20/2016 ADMISSION DATE: 12/15/2016SERVICE TIME: 10:08 AM ANTICIPATED D/C DATE: 2-3 daysProblem List:ACTIVE PROBLEM LISTBILIARY DYSKINESIAEmbolism and Thrombosis of Unspecified SiteAbnormal Mammogram, UnspecifiedMultinodular GoiterVentral Hernia With ObstructionWound InfectionPe (Pulmonary Embolism)Recurrent Ventral Incisional HerniaWeaknessObesity, Class III, BMI >= 40 (morbid obesity) E66.01Malnutrition of Moderate Degree (Hcc)Attendees Present at Rounds:Motor Tester: Lisaly: and sisterPatient: Laura Starknael Nurse: Sydnee Mcclendon Discussed on Rounds:Plan of CareAnticipated Discharge Disposition:[facility] v[facility] SNFLast Vitals: BP 147/89 Pulse 89 Temp (Src) 98.8 (Oral) Resp 20 Ht5' 2 (1.58m) Wt 237 lb 10.5 oz (107.8kg) SpO2 91% BMI 43.46kg/(m2). Chose [facility] (ref sent) , List of SNF given to review, PT/OT toeval,PT c/o sick since ,on 12/17/ PICC line , IV ATBX.Pt from home with and 20yr old disabled dtr. to transport.Nursing:Bleeding Intervention(s) Plan: Monitor I AND O;Monitor Vital Signs;MonitorLabs: CBC, INR, PTT/PT;Monitor and Record Blood Loss;Notify LIP forChanges to Baseline StatusBleeding Goals/Outcomes: Free of Signs/Symptom Active Bleeding;Displays NoSignificant Decrease in Hgb/Hct LevelsBleeding Goal Target Achievement Date: 12/22/16Risk for InfectionIntervention(s) Plan: Assess Vital Signs;Assess Signs/Symptom ofInfection;Maintain Hand Hygiene;Monitor Labs and Cultures;Notify LIP forChanges to Baseline StatusRisk for Infection Goals/Outcomes: Patient Without Signs/Symptoms ofInfectionsRisk For Infection Goal Target Achievement Date: 12/22/16Pain Intervention(s) Plan: Pain Assessment, Management, Reassessment PerScoring Tool;Notify LIP for Changes to Baseline Status;Provide Quiet andRestful EnvironmentPain Goals/Outcomes: Decrease in Pain Level per Scoring Tool;PatientVerbalizes Acceptable Level of Comfort and is Able to Carry Out Activitiesof Daily LivingPain Goal Target Achievement Date: 12/22/16Respiratory Alteration Intervention(s) Plan: Assess and MonitorRespiratory Status;Encourage Coughing and Deep Breathing;AssistiveRespira tory Devices;Plan Care for Frequent Rest Periods;Positioning forMaximum Lung Capacity;Suction Equipment at BedsideRespiratory Alteration Goals/Outcomes: Decrease of RespiratoryDistress;Jn t Demonstrates Adequate VentilationRespiratory Goal Target Achievement Date: 12/22/16DOCUMENTED BY: Natasha Hitchcock RN PATIENT NAME: Laura StarkDATE: December 20, 2016 : 10:08 AM CSN: [id number] [facility] PROGRESSon 12-20-2016 PROGRESS HNO ID: [id number] thor: Lauren Bernard (Pharmacist)Service: PharmacyAuthor Type: PharmacistType: Progress NotesFiled: 12/20/2016 8:53 AMNote Text:PHARMACY VANCOMYCIN DOSING NOTEPatient Name: Laura Stark Admission Date:12/15/2016Date of Consult: 12/20/2016 Time of Consult: 8:43 AMIndication: PneumoniaGoal Range: 15-20 mcg/mLRECOMMENDATIONS/PLAN :Pharmacy consulted for vancomycin dosing for Laura Stark, a 61 yearold, female who is being treated with vancomycin1. Patient is currently ordered Vancomycin 1.5 g IV q24h. Today is day 6of therapy.2. No vancomycin level has been drawn for this dosing regimen.3. The present dose of vancomycin is the recommended dosage for thispatient at this time. Continue therapy as prescribed.4. The next vancomycin level has been ordered for 12-21 (Completed)We will follow patient renal function, vancomycin levels and doses withyou during the course of therapy. Additional recommendations will appearin follow up notes. If you have any questions, please contact inpatientpharmacy at [phone].Age: 61 year oldAllergies:ALLERGIESAlle rgen Reactions- Clindamycin Hives- Macrodantin [Nitrof* Other: See Comments Off-balance- Percocet [Oxycodone* Other: See Comments Nausea- Sulfa (Sulfonamide * Rash, Itching localized rash and itching all over- Zithromax [Azithrom* Rash, Itching localized rash and itching all over- Zenicef [Other] Rash, Itching itching in mouth; localized rash and itching all overLast 3 Encounter Wt Readings: Date: Wt: 12/15/2016 107.8 kg (237 lb 10.5 oz) 04/12/2016 115.2 kg (254 lb) 10/04/2015 113.4 kg (250 lb)Last 1 Encounter Ht Readings: Date: Ht: 12/15/2016 157.5 cm (5' 2)CrCl: 55.3 mL/minTemp (24hrs), Av.7 ?C (98.1 ?F), Min:36.5 ?C (97.7 ?F), Max:37 ?C(98.6 ?F) - Current Temp: 37 ?C (98.6 ?F)LabsBUN (mg/dL)Date Value12/19/2016 37 (H)12/18/2016 44 (H)12/17/2016 35 (H) Creatinine (mg/dL)Date Value12/19/2016 1.2211 1.41 (H)12/17/2016 1.22 WBC (k/uL)Date Value12/19/2016 7.5911 10.9611 9.21 Vancomycin Levels:Vancomycin, result (ug/mL)Date Value12/19/2016 16.111 37.9 (H) LAUREN BERNARD, PHARMACIST [facility] PROGRESS HNO ID: [id number] thor: Kiara Fleming: General Internal MedicineAuthor Type: PhysicianType: Progress NotesFiled: 12/20/2016 1:08 PMNote Text:INTERNAL MEDICINE PROGRESS NOTEADMITTING PHYSICIAN: Kiara SternJECTIVECHIALENA COMPLAINT: Feeling better today am, no new complains today,Current Facility-Administered Medications:apixaban 5 mg tab(s) (ELIQUIS) 5 mg ORAL BIDvancomycin 1.5 g in D5W 250 mL 1.5 g INTRAVENOUS q 24 HRaspirin, enteric coated 81 mg tab(s) (ASPIRIN, ENTERIC COATED) 81 mg ORALDAILYmetHIMazole 5 mg tab(s) (TAPAZOLE) 5 mg ORAL DAILYinsulin NPH human 5 Units injection (intermediate acting) (NovoLIN N,HumuLIN N) 5 Units SUBCUTANEOUS BIDmorphine 1-2 mg injection 1-2 mg INTRAVENOUS q 4 H PRNdigoxin 0.25 mg tab(s) (LANOXIN) 0.25 mg ORAL DAILYpolyethylene glycol 3350 17 g packet (MIRALAX, GLYCOLAX) 17 g ORAL DAILYdiltiazem CD 240 mg cap(s) (CARDIZEM CD, CARTIA XT) 240 mg ORAL DAILYmethylPREDNISolone sod succinate(PF) 40 mg injection (Solu-MEDROL) 40 mgINTRAVENOUS q 12 Hondansetron (PF) 4 mg injection (ZOFRAN) 4 mg INTRAVENOUS q 6 H PRNamiodarone 400 mg tab(s) (PACERONE) 400 mg ORAL TID0.9% NaCl 10 mL 10 mL INTRAVENOUS q 12 H0.9% NaCl 20 mL 20 mL INTRAVENOUS PRNcodeine-guaiFENesin 5-10 mL oral liquid (ROBITUSSIN AC) 5-10 mL ORAL q 6 HPRNdextrose 40 % 15 g (INSTA-GLUCOSE) 15 g ORAL PRNOrglucagon 1 mg injection (GLUCAGEN) 1 mg INTRAMUSCULAR PRNOrdextrose 50% in water 25 mL syringe 12.5 g INTRAVENOUS PRNinsulin lispro injection (rapid acting) (HumaLOG) SUBCUTANEOUS w MEALSinsulin lispro injection (rapid acting) (HumaLOG) SUBCUTANEOUS AT BEDTIMEHYDROcodone 5 mg - acetaminophen 325 mg tablet (NORCO) 1-2 tablet ORAL q 6H PRNcefTRIAXone 1 g in sterile water 10 mL (ROCEPHIN) 1 g INTRAVENOUS q 24 Hipratropium-albuterol 3 mL nebulizer solution (DUONEB) 3 mL INHALATION QIDmontelukast 10 mg tab(s) (SINGULAIR) 10 mg ORAL AT BEDTIMEmagnesium oxide 400 mg tab(s) (MAG-OX) 400 mg ORAL DAILYspironolactone 25 mg tab(s) (ALDACTONE) [address] 40 mg tab(s) (PROTONIX) 40 mg ORAL DAILYhydroCHLOROthiazide 25 mg tab(s) (HYDRODIURIL, ESIDRIX) 25 mg ORAL DAILYvancomycin dosing and monitoring per pharmacy OTHER As Directedipratropium-albute rol 3 mL nebulizer solution (DUONEB) 3 mL INHALATION q 2H PRNiv contrast (radiology procedure) INTRAVENOUS DIRECTED PRNINTERVAL HISTORY OF PRESENT ILLNESS: Went back in afib again. No n/v/d.No orthopnea, pnd,cpain, fever, chills.Consult notes reviewed.OBJECTIVEPHYSICAL EXAM:Blood pressure 162/82, pulse 94, temperature 36.3 ?C (97.4 ?F),temperature source Oral, resp. rate 18, height 157.5 cm (5' 2), bxjebx736.8 kg (237 lb 10.5 oz), SpO2 96 %.Body mass index is 43.47 kg/(m2).GENERAL: Morbidly Obese, Alert, no DistressNECK: SuppleLUNGS: decreased a/e, occ ronchi.CARDIAC: s1s2: regABDOMEN: Soft, nontenderEXTREMITIES: Extremities normal, no deformities, edema, clubbing or skindiscoloration. Good capillary refill.NEURO: Alert, oriented X 3, Gait normal. Non-focal. Reflexes normal andsymmetric. Sensation grossly intact.PULSES: 2+ radialDATA:Diagnostic tests reviewed for today's visit:Most recent labs and imaging results.ASSESSMENT/PLANAct aravind Problems: Acute Asthma exacerbation with HCAP? recent sputum cx with MRSA and E.coli: Follow repeat cx, continue iv abx and decrease iv steroids. Continuenebs. Pulmonary eval. Add codeine cough syrup, Weakness POA: Yes Assessment AND Plan: due to above. Obesity, Class III, BMI >= 40 (morbid obesity) E66.01 Assessment AND Plan: encourage wt. Loss. Hyperglycemia due to steroids: Add SSI.PAF:continue eliquis,appreciate Endo eval for hyperthyroidism,Appreciate : Cardio eval.SIGNATURE: Kiara Nugent MD PATIENT NAME: Laura Stark PAGER/CONTACT #: Normal [facility] Rapid PCR FLU/RSVon 12-21-19 17 Influenza A PCR Negative [facility] Comment on above: Performed By: #### C HUDSON ####[facility] [address] [place] [phone] Influenza B PCR Negative [facility] Comment on above: Performed By: #### C KCYANIB ####[facility] [address] [place] [phone] RSV PCR Negative [facility] Comment on above: Performed By: #### C MILAB ####[facility] [address] [place] [address] Specimen source Nasopharyngeal Swab Normal [facility] Comment on above: Performed By: #### C HUDSON ####[facility] [address] [place] [address] Resp Vir Pnl by PCRon 2016 Adenovirus B/E Negative Normal Negative [facility] Comment on above: Performed By: #### C HUDSON ####[facility] [address] [place] [address] Adenovirus C Negative Normal Negative [facility] Comment on above: Performed By: #### C HUDSON ####[facility] [address] [place] [address] H Metapneumovirus Negative Normal Negative [facility] Comment on above: Performed By: #### C HUDSON ####[place] [address] Influenza A H1N1 09 Negative Normal Negative [facility] Comment on above: Performed By: #### C HUDSON ####[place] [address] Influenza A Virus Negative Normal Negative [facility] Comment on above: Performed By: #### C MILAB ####[place] [address] Influenza B Virus Negative Normal Negative [facility] Comment on above: Performed By: #### C HUDSON ####[place] [address] Parainfluenza 1 Negative Normal Negative [facility] Comment on above: Performed By: #### C KCYANIB ####[place] [address] Parainfluenza 2 Negative Normal Negative [facility] Comment on above: Performed By: #### C KCYANIB ####[place] [address] Parainfluenza 3 Negative Normal Negative [facility] Comment on above: Performed By: #### C KCKLAUDIA ####[facility] [address] [place] [address] Resp Syncytial Vir A Negative Normal Negative [facility] Comment on above: Performed By: #### C KCKMB ####[facility] [address] [place] [address] Resp Syncytial Vir B Negative Normal Negative [facility] Comment on above: Performed By: #### C KCKMB ####[place] [address] Resp Viral Panl Srce Nasopharyngeal Swab Normal [facility] Comment on above: Performed By: #### C KCYANIB ####[facility] [address] [place] [address] Rhinovirus Negative Normal Negative [facility] Comment on above: Performed By: #### C KCYANIB ####[place] [address] CBCon 12-19-2016 Erythrocyte distribution width Auto Ratio (RBC) 17.1 % High 11.5-15.0 [facility] Comment on above: Performed By: #### C BC, CMP ####[place] [address] Erythrocytes (RBC) 4.19 10*6/uL Normal 3.90-5.20 [facility] Comment on above: Performed By: #### C BC, CMP ####[place] [address] Hematocrit (HCT) 35.8 % Low 36.0-46.0 [facility] Comment on above: Performed By: #### C BC, CMP ####[place] [address] Hemoglobin mass conc (Bld) 11.3 g/dL Low 11.5-15.5 [facility] Comment on above: Performed By: #### C BC, CMP ####[place] [address] MCH 27.0 pG Normal 26.0-34.0 [facility] Comment on above: Performed By: #### C BC, CMP ####[place] [address] MCHC mass conc (RBC) 31.6 g/dL Normal 30.5-36.0 [facility] Comment on above: Performed By: #### C BC, CMP ####[phone] MCV 85.4 fL Normal 80.0-100.0 [facility] Comment on above: Performed By: #### C BC, CMP ####[facility] [address] [place] [phone] Platelet mean volume (PMV) 9.4 fL Normal 9.0-12.7 [facility] Comment on above: Performed By: #### C BC, CMP ####[facility] [address] [place] [phone] Platelets 206 10*3/uL Normal 150-400 [facility] Comment on above: Performed By: #### C BC, CMP ####[facility] [address] [place] [phone] WBC (Leukocytes) 7.59 10*3/uL Normal 3.70-11.00 [facility] Comment on above: Performed By: #### C BC, CMP ####[facility] [address] [place] [phone] CONSULTon 12-19-2016 CONSULT HNO ID: [id number] thor: Mia Blevinsice: EndocrinologyAuthor Type: PhysicianType: ConsultsFiled: 12/19/2016 3:29 PMNote Text:Referring Physician: Kiara Mccabe for consultation: HyperthyroidismSubjective: Laura Stark is a 61 year old female 61-year-old female with historyof asthma, PE/DVT and Hypertension presented to the ER with dyspnea.Patient reports that she developed palpitations and SOB last night. Shewas found to have AF with RVRPatient reports [facility] She has beensick with pulmonary issues for the past several weeksShe has been treated with antibiotics and steroids.Patient reports that she has been experiencing A.tachycardia for the past1 yearMentions that thyroid labs have been checked in the past and were alsonormalFew years ago, she was found to have left thyroid nodule, FNA was benign.Thyroid labs at the time of this hospitalization were consistent with mildhyperthyroidism.Any prior hyperthyroid treatment or symptom control medication: NoRelevant medications (amiodarone, thyroid medications): Amiodarone wasstarted yesterdayRecent iodine/contrast exposure: yesGeneral symptoms:Fatigue: yes, for the couple weeksWeight change: unintentional weight loss despite being on steroidsAppetite change: decreasedChange in bowel habits: NoTemperature intolerance: heat intoleranceWeakness: yes, generalizedTremor: +Palpitations: yes.REVIEW OF SYSTEMS:GENERAL:Fever - NoChanges in weight - see aboveNEUROLOGICAL:Numbness , tingling or sensation of pins and needles - NoHeadaches-NoHEAD, EYES, EARS, NOSE, AND THROAT:Changes in hearing - NoChanges in vision - NoCARDIOVASCULAR:Chest pain or pressure - NoPalpitations - yesRESPIRATORY:Cough - NoWheezing - NoShortness of breath - NoGASTROINTESTINAL:Abdomin al discomfort - NoNausea - NoVomiting - NoEXTREMITY:Edema (swelling) - NoClaudication-NoMUSCULOSK ELETAL:Muscle pain or ache - NoArthralgia-NoSkin:Rash - NoErythema-NoENDOCRINE:Sheeba betes - NoThyroid disorder - hyperthyroidismPSYCHOLOGIC AL:Depression - NoALLERGIES:ALLERGIESAller gen Reactions- Clindamycin Hives- Macrodantin [Nitrof* Other: See Comments Off-balance- Percocet [Oxycodone* Other: See Comments Nausea- Sulfa (Sulfonamide * Rash, Itching localized rash and itching all over- Zithromax [Azithrom* Rash, Itching localized rash and itching all over- Zenicef [Other] Rash, Itching itching in mouth; localized rash and itching all overMEDICATIONS:No current facility-administered medications on file prior to encounter.No current outpatient prescriptions on file prior to encounter.PAST MEDICAL HISTORY:PAST MEDICAL HISTORYDiagnosis Date- DVT (deep venous thrombosis) (HCC) 1995 Rt lower leg- PE (pulmonary embolism)- Unspecified asthma(493.90)- Unspecified essential hypertensionPAST SURGICAL HISTORY:PAST SURGICAL HISTORYProcedure Laterality Date- APPENDECTOMY- DELIVERY ONLY , low cervical- COLONOSCOP W/ OR W/O [facility] SPEC 01-09-13- DEBRIDE SKIN AND SUBQ TISSU 02-10-12- FILTER PLACEMENT (VENA CAVA) 01-15-13- FNA WITH IMAGING 05/26/11 U/S FNA left thyroid nodule- FREEING BOWEL ADHESION,ENTEROLYSIS 03-24-12- INSER NON-TUNNEL CVC >= 5 YR 03-24-12- LAP INC CY RECUR COMP 01-18-13- PAST SURGICAL HISTORY OF 2003 right ankle surgery-fusion- PAST SURGICAL HISTORY OF 2009 right shoulder partial replacement- REPAIR INCIS HERNIA W MESH 01-31-12- REPAIR INCISIONAL HERNIA,LALO 01-31-12- TOTAL ABDOM HYSTERECTOMY 1996 Hysterectomy, RONN- TRANSCATH RETRIEVAL,PERCUT 02-21-13 FILTER REMOVALFAMILY HISTORY:FAMILY HISTORYProblem Relation Age of Onset- Cancer Father skin- Hypertension Father- Cancer Maternal Grandmother colon- Cancer Paternal Grandfather leukemia- Diabetes Mother- Hypertension Mother- Ischemic Heart Disease Mother- Hypertension Maternal Grandfather- Ischemic Heart Disease Maternal Grandfather- Diabetes Maternal GrandfatherSOCIAL HISTORY:Social History Marital status: Spouse name: Years of education: Number of children:Social History Main Topics Smoking status: Former Smoker Packs/day: 1.00 Years: 20.00 Types: Cigarettes Quit date: 10/29/1995 Alcohol use: No Drug use: NoPHYSICAL EXAM:BP 131/76 Pulse 115 Temp 37 ?C (98.6 ?F) (Oral) Resp 20 Ht 157.5cm (5' 2) Wt 107.8 kg (237 lb 10.5 oz) SpO2 97% BMI 43.47 kg/m2Last 3 Encounter Wt Readings: Date: Wt: 12/15/2016 107.8 kg (237 lb 10.5 oz) 04/12/2016 115.2 kg (254 lb) 10/04/2015 113.4 kg (250 lb)Alert and oriented x3, no acute distressEyes: Anicteric sclera. Pupils are equally round. Extraocular motionsintact, no exophthalmos, no lid lagMucous membranes moist, no erythemaNeck supple, no cervical lymphadenopathyThyroid: normal size, normal texture, no palpable nodulesLungs: Breathing unlabored, clear to auscultation. No wheezing, rhonchi,ralesHeart regular rate and rhythm, no murmerAbdomen:Normal abdominal sounds, non tender to palpation, no massesNeuro: Gait normal. Sensation grossly intact. Normal DTR's at patella, +tremorMusculoskeletal: Muscular strength intact, No joint swelling, deformity,or tendernessExtremities non pitting edema B/L LE, Good peripheral pulsesSkin: no rashes/ erythemaLAB:TSHDate Value Ref Range Emvvhd4612/18/2016 0.242 (L) 0.400 - 5.500 uU/mL Final Free T4Date Value Ref Range Fncmvz3012/18/2016 1.9 (H) 0.9 - 1.7 ng/dL Final No results found for: L3DIYXOIQUXC/PLAN:1) Hyperthyroidism:Likely Graves disease vs toxic nodulePatient presented with new onset A.FibAsiack Free T3 and TSIRecently underwent CT with contrast, therefore, will not able to do RAIuptake/scan at this timeObtain a neck US for further evaluationStart Methimazole 5 mg dailyMonitor CBC and hepatic function2) Thyroid nodule:Obtain a thyroid US for further evaluation3) steroid induced hyperglycemia:My recommendation is to start NPH 5 units BID while she is on IVsolumedrolContinue Humalog level 1 correction with mealsMonitor accucheck AC/HSNotify Endocrinology if BG > 200 or < 80.Will continue to follow the patient and make further recommendationsaccordingly .Mia Correa MD12/19/16 Normal [facility] Comp Metabolic Panelon 12-19 Alanine aminotransferase (ALT) 33 U/L Normal 0-45 [facility] Comment on above: Performed By: #### C PAT, CMP ####[facility] [address] [place] [address] Albumin 3.7 g/dL Normal 3.5-5.0 [facility] Comment on above: Performed By: #### C PAT, CMP ####[facility] [address] [place] [phone] Alkaline phosphatase (ALP) 69 U/L Normal 40-150 [facility] Comment on above: Performed By: #### C PAT, CMP ####[facility] [address] Anion gap 15 mmol/L Normal 0-15 [facility] Comment on above: Performed By: #### C PAT, CMP ####[facility] [address] [place] [phone] Aspartate aminotransferase (AST) 14 U/L Normal 7-40 [facility] Comment on above: Performed By: #### C BC, CMP ####[facility] [address] [place] [address] Bilirubin (total) 0.4 mg/dL Normal 0.0-1.5 [facility] Comment on above: Performed By: #### C BC, CMP ####[facility] [address] [place] [address] Calcium 9.6 mg/dL Normal 8.5-10.5 [facility] Comment on above: Performed By: #### C BC, CMP ####[facility] [address] [place] [address] Chloride 96 mmol/L Low 98-110 [facility] Comment on above: Performed By: #### C BC, CMP ####[facility] [address] [place] [address] CO2 25 mmol/L Normal 23-32 [facility] Comment on above: Performed By: #### C BC, CMP ####[place] [address] Creatinine 1.22 mg/dL Normal 0.70-1.40 [facility] Comment on above: Performed By: #### C BC, CMP ####[place] [address] eGFR (non-black) 45 . Normal [facility] Comment on above: Result Comment: eGFR (Estimated GFR) Units of measure: mL/min/1.73 meters squaredeGFR is derived from the reexpressed MDRD Study equation using the following parameters: serum creatinine, age, gender and race. The creatinine assay has been calibrated to be traceable to IDMS.An eGFR <60 mL/min/1.73m2 for >3 months is consistent with chronic kidney disease. Refer to KDOQI guidelines for clinical interpretation.In patients with unstable renal function, e.g. those with acute kidney injury, the eGFR may not accurately reflect actual GFR. Performed By: #### C BC, CMP ####[facility] [address] [place] [address] eGFR (non-black) 54 mL/min/{1.73_m2} Normal [facility] Comment on above: Performed By: #### C BC, CMP ####[facility] [address] [place] [address] Glucose mass conc 191 mg/dL High 65-100 [facility] Comment on above: Performed By: #### C BC, CMP ####[facility] [address] [place] [address] Potassium molar conc 3.6 mmol/L Normal 3.5-5.0 [facility] Comment on above: Performed By: #### C BC, CMP ####[facility] [address] [place] [address] Protein 6.1 g/dL Normal 6.0-8.4 [facility] Comment on above: Performed By: #### C BC, CMP ####[facility] [address] [place] [address] Sodium 136 mmol/L Normal 132-148 [facility] Comment on above: Performed By: #### C BC, CMP ####[facility] [address] [place] [address] Urea nitrogen 37 mg/dL High 8-25 [facility] Comment on above: Performed By: #### C BC, CMP ####[facility] [address] [place] [address] Free T3on 12-19-2016 Triiodothyronine (T3) free 2.1 pg/mL Low 2.3-4.1 [facility] Comment on above: Performed By: #### F REET3, TRAB ####[facility] [address] [place], [place] [phone] NURSING PROGon 12-19-2016 NURSING PROG HNO ID: [id number] thor: Maritza (Rn) LEVI Nguyễnervice: (none)Author Type: Registered NurseType: Nursing Progress NoteFiled: 12/19/2016 8:00 PMNote Text: Nursing Progress NotePatient Name: Laura StarkMRN: [id number] Location: [facility]1/[id number]___ Daily Note:0730- Bedside report received. Pt sleeping. No needs noted. Call lightwithin reach.0735- Pt converted back to Afib.0810- Resting in bed. AANDOx3. Apical irregular. Converted back to Afib, [id number]'s. Denies chest pain. C/O palpitations and dyspnea. Lungs withcoarse wheezes. Resp slightly labored at rest. Moist cough noted. Abdsoft, obese. BSx4. Skin warm, dry, color pink. PPP. LLE 4+ edema. RLE 2+edema. RUE PICCline intact. Denies needs. Call light within reach.0930- Dr. Russ rounds, updated on pt's status and pt converting back toAfib.1000- Vanco trough level drawn for PICCline and sent to lab. PO meds givenwithout difficulty. Rocephin IV push given slowly. Family at bedside.Denies needs. Call light within reach.1015- Dr. Russ rounds.1210- Pt up to BR, HR 150-160's. Pt symptomatic with increased SOB andpalpitations. Dr. Russ notified and orders received. Pt informed on use ofBSC until HR normalized.1500- Informed by [employer] that pt's HR sustaining in the 140's. Dr. Sears floor, notified and orders received.1510- Medicated for chest discomfort with Morphine 2 mg IV.1555- Cardizem gtt initiated at 10 ml/hr. States Morphine is effective.Denies pain.1810- HR sustained 140's. Spoke with Dr[address] Russ, orders received.1820- Cardizem 10 mg IV bolus given and Cardizem gtt increased to 15ml/hr. No other changes noted in assessment. Call light within reach.This note was completed by: Maritza Nguyễn RN Normal [facility] NURSING PROG HNO ID: [id number] thor: Sharee (Rn) LEVI Harpervice: (none)Author Type: Registered NurseType: Nursing Progress NoteFiled: 12/19/2016 4:28 AMNote Text: Nursing Progress NotePatient Name: Laura StarkMRN: [id number] Location: [place] [address]/[id number]___ Daily Note:2300-Call to Dr. Russ regarding pt HR in 140-170's. Pt is up in BRwashing up. Reports HAWTHORNE. Tele reported she was having artifact andultimately she went back into A-fib. Dr. Russ gave VTO to give motqnogfhm858 mg TID.0- EKG done d/t A-fib on tele. Pt in bed, breathing audibly. Reportsno s/s of chest pain, pressure, or discomfort. Bed low and locked, calllight in reach.2345-Pt c/o dizziness, dyspnea, and chest pressure on L side radiating toneck slightly. Pt given amiodarone per Dr. Russ orders. Pt still audiblybreathing and coughing (non-productive). Will cont. To monitor chestdiscomfort/pressure. Pt asking for breathing tx. Notified RT. Calllight in reach, bed low locked.0100-Pt observed sleeping. No s/s of distress. HR down to 100-110 bpm.Call light in vouuk6049-Jrbfw draws collected from PICC line and [facility] note was completed by: Sharee Harp RN [facility] PROGRESSon 12-19-2016 PROGRESS HNO ID: [id number] thor: Kiara Fleming: General Internal MedicineAuthor Type: PhysicianType: Progress NotesFiled: 12/19/2016 3:26 PMNote Text:INTERNAL MEDICINE PROGRESS NOTEADMITTING PHYSICIAN: Kiara ResendizCHIALENA COMPLAINT: palpitations.Current Facility-Administered Medications:vancomycin 1.5 g in D5W 250 mL 1.5 g INTRAVENOUS q 24 HRdiltiazem 125 mg in D5W 125 mL iv infusion (CARDIZEM) 10 mg/hr INTRAVENOUSCONTINUOUSmorph ine 1-2 mg injection 1-2 mg INTRAVENOUS q 4 H PRNdigoxin 0.25 mg tab(s) (LANOXIN) 0.25 mg ORAL DAILYpolyethylene glycol 3350 17 g packet (MIRALAX, GLYCOLAX) 17 g ORAL DAILYdiltiazem CD 240 mg cap(s) (CARDIZEM CD, CARTIA XT) 240 mg ORAL DAILYmethylPREDNISolone sod succinate(PF) 40 mg injection (Solu-MEDROL) 40 mgINTRAVENOUS q 12 Hondansetron (PF) 4 mg injection (ZOFRAN) 4 mg INTRAVENOUS q 6 H PRNamiodarone 400 mg tab(s) (PACERONE) 400 mg ORAL TID0.9% NaCl 10 mL 10 mL INTRAVENOUS q 12 H0.9% NaCl 20 mL 20 mL INTRAVENOUS PRNcodeine-guaiFENesin 5-10 mL oral liquid (ROBITUSSIN AC) 5-10 mL ORAL q 6 HPRNdextrose 40 % 15 g (INSTA-GLUCOSE) 15 g ORAL PRNOrglucagon 1 mg injection (GLUCAGEN) 1 mg INTRAMUSCULAR PRNOrdextrose 50% in water 25 mL syringe 12.5 g INTRAVENOUS PRNinsulin lispro injection (rapid acting) (HumaLOG) SUBCUTANEOUS w MEALSinsulin lispro injection (rapid acting) (HumaLOG) SUBCUTANEOUS AT BEDTIMEHYDROcodone 5 mg - acetaminophen 325 mg tablet (NORCO) 1-2 tablet ORAL q 6H PRNcefTRIAXone 1 g in sterile water 10 mL (ROCEPHIN) 1 g INTRAVENOUS q 24 Hipratropium-albuterol 3 mL nebulizer solution (DUONEB) 3 mL INHALATION QIDmontelukast 10 mg tab(s) (SINGULAIR) 10 mg ORAL AT BEDTIMEmagnesium oxide 400 mg tab(s) (MAG-OX) 400 mg ORAL DAILYspironolactone 25 mg tab(s) (ALDACTONE) [address] 40 mg tab(s) (PROTONIX) 40 mg ORAL DAILYhydroCHLOROthiazide 25 mg tab(s) (HYDRODIURIL, ESIDRIX) 25 mg ORAL DAILYvancomycin dosing and monitoring per pharmacy OTHER As Directedipratropium-albute rol 3 mL nebulizer solution (DUONEB) 3 mL INHALATION q 2H PRNguaiFENesin 600 mg ER tab(s) (MUCINEX) 600 mg ORAL q 12 Hiv contrast (radiology procedure) INTRAVENOUS DIRECTED PRNINTERVAL HISTORY OF PRESENT ILLNESS: Went back in afib again. No n/v/d.No orthopnea, pnd,cpain, fever, chills.Consult notes reviewed.OBJECTIVEPHYSICAL EXAM:Blood pressure 131/76, pulse 115, temperature 37 ?C (98.6 ?F), temperaturesource Oral, resp. rate 20, height 157.5 cm (5' 2), weight 107.8 kg (237lb 10.5 oz), SpO2 97 %.Body mass index is 43.47 kg/(m2).GENERAL: Morbidly Obese, Alert, Mild DistressNECK: SuppleLUNGS: Positive findings: rhonchi bibasilar, wheezing bibasilarCARDIAC: s1s2: irregABDOMEN: Soft, nontenderEXTREMITIES: Extremities normal, no deformities, edema, clubbing or skindiscoloration. Good capillary refill.NEURO: Alert, oriented X 3, Gait normal. Non-focal. Reflexes normal andsymmetric. Sensation grossly intact.PULSES: 2+ radialDATA:Diagnostic tests reviewed for today's visit:Most recent labs and imaging results.ASSESSMENT/PLANAct aravind Problems: Acute Asthma exacerbation with HCAP? recent sputum cx with MRSA and E.coli: Follow repeat cx, continue iv abx and decrease iv steroids. Continuenebs. Pulmonary eval. Add codeine cough syrup, Weakness POA: Yes Assessment AND Plan: due to above. Obesity, Class III, BMI >= 40 (morbid obesity) E66.01 Assessment AND Plan: encourage wt. Loss. Hyperglycemia due to steroids: Add SSI.PAF:Add eliquis,Endo eval for hyperthyroidism,Cardio eval.SIGNATURE: Kiara Nugent MD PATIENT NAME: Laura Stark PAGER/CONTACT #: [facility] PROGRESS HNO ID: [id number] thor: Santos Webb SyedService: Cardiovascular MedicineAuthor Type: PhysicianType: Progress NotesFiled: 12/19/2016 2:19 PMNote Text:PROGRESS NOTE CARDIOLOGY SERVICESERVICE DATE: 12/19/2016SERVICE TIME: 2:09 PMSUBJECTIVEINTERIM HISTORY: Patient has no chest pain but with mild activity shedevelops significant SOB or palpitations.MEDICATIONS:[facility] medications:apixaban 5 mg tab(s) (ELIQUIS) 5 mg ORAL BIDvancomycin 1.5 g in D5W 250 mL 1.5 g INTRAVENOUS q 24 HR[START ON 12/20/2016] aspirin, enteric coated 81 mg tab(s) (ASPIRIN,ENTERIC COATED) 81 mg ORAL DAILYmorphine 1-2 mg injection 1-2 mg INTRAVENOUS q 4 H PRNdigoxin 0.25 mg tab(s) (LANOXIN) 0.25 mg ORAL DAILYpolyethylene glycol 3350 17 g packet (MIRALAX, GLYCOLAX) 17 g ORAL DAILYdiltiazem CD 240 mg cap(s) (CARDIZEM CD, CARTIA XT) 240 mg ORAL DAILYmethylPREDNISolone sod succinate(PF) 40 mg injection (Solu-MEDROL) 40 mgINTRAVENOUS q 12 Hondansetron (PF) 4 mg injection (ZOFRAN) 4 mg INTRAVENOUS q 6 H PRNamiodarone 400 mg tab(s) (PACERONE) 400 mg ORAL TID0.9% NaCl 10 mL 10 mL INTRAVENOUS q 12 H0.9% NaCl 20 mL 20 mL INTRAVENOUS PRNcodeine-guaiFENesin 5-10 mL oral liquid (ROBITUSSIN AC) 5-10 mL ORAL q 6 HPRNdextrose 40 % 15 g (INSTA-GLUCOSE) 15 g ORAL PRNglucagon 1 mg injection (GLUCAGEN) 1 mg INTRAMUSCULAR PRNdextrose 50% in water 25 mL syringe 12.5 g INTRAVENOUS PRNinsulin lispro injection (rapid acting) (HumaLOG) SUBCUTANEOUS w MEALSinsulin lispro injection (rapid acting) (HumaLOG) SUBCUTANEOUS AT BEDTIMEHYDROcodone 5 mg - acetaminophen 325 mg tablet (NORCO) 1-2 tablet ORAL q 6H PRNcefTRIAXone 1 g in sterile water 10 mL (ROCEPHIN) 1 g INTRAVENOUS q 24 Hipratropium-albuterol 3 mL nebulizer solution (DUONEB) 3 mL INHALATION QIDmontelukast 10 mg tab(s) (SINGULAIR) 10 mg ORAL AT BEDTIMEmagnesium oxide 400 mg tab(s) (MAG-OX) 400 mg ORAL DAILYspironolactone 25 mg tab(s) (ALDACTONE) [address] 40 mg tab(s) (PROTONIX) 40 mg ORAL DAILYhydroCHLOROthiazide 25 mg tab(s) (HYDRODIURIL, ESIDRIX) 25 mg ORAL DAILYvancomycin dosing and monitoring per pharmacy OTHER As Directedipratropium-albute rol 3 mL nebulizer solution (DUONEB) 3 mL INHALATION q 2H PRNguaiFENesin 600 mg ER tab(s) (MUCINEX) 600 mg ORAL q 12 Hiv contrast (radiology procedure) INTRAVENOUS DIRECTED PRNOBJECTIVEPHYSICAL EXAM:Body mass index is 43.47 kg/(m2).Patient Vitals for the past 24 hrs: BP Temp Temp src Pulse Resp SpO2 Tndppz89/05/17 1145 - - - 115 20 - -12/19/16 1133 131/76 37 ?C (98.6 ?F) Oral 115 18 97 % -12/19/16 1129 - - - 105 20 96 % -12/19/16 0753 - - - 110 18 97 % -12/19/16 0730 137/57 36.8 ?C (98.2 ?F) Oral 80 18 94 % -12/19/16 0538 130/71 36.8 ?C (98.2 ?F) Oral 84 19 95 % -12/19/16 0500 - - - - - - 107.8 kg (237 lb 10.5 oz)12/19/16 0028 - - - 95 20 - -12/19/16 0018 - - - 90 20 97 % -12/18/16 2349 127/85 36.5 ?C (97.7 ?F) Oral (!) 139 19 96 % -12/18/162046 - - - 77 20 - -12/18/162028 - - - 76 20 95 % -12/18/162026 139/62 36.5 ?C (97.7 ?F) Oral 75 19 96 % -12/18/16 1631 137/61 37.1 ?C (98.8 ?F) Oral 85 18 95 % -12/18/16 1608 - - - 88 - - -12/18/16 1554 - - - 88 16 95 % -GENERAL: Pleasant, comfortable, not in acute distress.Awake, alert, oriented times 3.Moves all extremities.SKIN: No rash or lumps.HEENT: Normocephalic, face symmetrical.NECK: Supple, no JVD, no carotid bruit, no thyromegaly.LUNGS: Clear to auscultation bilaterally.CARDIAC: RRR, S1 and S2, no S3 or S4, no additional heart sounds ormurmurs.ABDOMEN: Soft, nontender, bowel sounds present. No masses or organomegaly.EXTREMITIES: No edema.PULSES: Peripheral pulses present. dorsalis pedis normal, posterior tibialnormalNEURO: Nonfocal.DATA:Diagnostic tests reviewed for today's visit:Most recent labs and imaging results.Most recent EKGTelemetry reviewed.Past 72 Hour Labs:Recent Labs WBC 7.59RBC 4.19HB 11.3*HCT 35.8*MCV 85.4MCH 27.0MCHC 31.6RDWCV 17.1*PLT 206MPV 9.4GLUC 191*BUN 37*CREAT 1.22NA 136K 3.6CHLOR 96*CO2 25TPROT 6.1ALB 3.7CA 9.6ALKPHOS 69TBILI 0.4AST 14ALT 33Last Lab Drawn:TSH 0.242 12/18/2016ASSESSMENT/PLANPa [facility] Problem List: Weakness (12/16/2016) Obesity, Class III, 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 Started on Amiodarone 400mgTID. Consider FERNANDO / DCCVH/O DVT and Pulm Emboli (hypercoagulable state?)Had normal Echo EF 60% and normal SPECT scan at [place] by Chuck leviContinue Cardizem 240 mg daily from tomorrow.Can give Digoxin 0.25 mg daily for better rate controlI increased her Pradaxa 150 mg BID as Creatinine is normal today. and sheis at high risk of AF recurrence / Thromboembolic disease. Can D/C LovenoxI discussed risks and benefits and she agrees to monitor closelySIGNATURE: Santos Russ MD PATIENT NAME: Laura SatrkDATE: December 19, 2016 : 2:09 PM PAGER/CONTACT #: [phone] Normal [facility] PROGRESS HNO ID: [id number] thor: Yimi Yuan (Academic Support Assistant)Service: PharmacyAuthor Type: PharmacistType: Progress NotesFiled: 12/19/2016 11:27 AMNote Text:PHARMACY VANCOMYCIN DOSING NOTEPatient Name: Laura Stark Admission Date:12/15/2016Date of Consult: 12/19/2016 Time of Consult: 11:24 AMIndication: PneumoniaGoal Range: 15-20 mcg/mLRECOMMENDATIONS/PLAN :Pharmacy consulted for vancomycin dosing for Laura Stark, a 61 yearold, female who is being treated with vancomycin1. Patient is currently ordered Vancomycin dosed by level. Today is day 5of therapy.2. The most recent vancomycin level was 16.1 mcg/mL drawn at 1030 on 12/19. This is a 48 hour level on the 5 day of therapy.3. Will schedule vancomycin to 1.5 g with a dosing interval of q24h4. The next vancomycin level will be ordered for 12/21 unless clinicallyindicated sooner. (Pharmacy will order)We will follow patient renal function, vancomycin levels and doses withyou during the course of therapy. Additional recommendations will appearin follow up notes. If you have any questions, please contact pharmacy [phone].Age: 61 year oldAllergies:ALLERGIESAlle rgen Reactions- Clindamycin Hives- Macrodantin [Nitrof* Other: See Comments Off-balance- Percocet [Oxycodone* Other: See Comments Nausea- Sulfa (Sulfonamide * Rash, Itching localized rash and itching all over- Zithromax [Azithrom* Rash, Itching localized rash and itching all over- Zenicef [Other] Rash, Itching itching in mouth; localized rash and itching all overLast 3 Encounter Wt Readings: Date: Wt: 12/15/2016 107.8 kg (237 lb 10.5 oz) 04/12/2016 115.2 kg (254 lb) 10/04/2015 113.4 kg (250 lb)Last 1 Encounter Ht Readings: Date: Ht: 12/15/2016 157.5 cm (5' 2)CrCl: 55.3 mL/minTemp (24hrs), Av.8 ?C (98.3 ?F), Min:36.5 ?C (97.7 ?F), Max:37.2 ?C(99 ?F) - Current Temp: 36.8 ?C (98.2 ?F)LabsBUN (mg/dL)Date Value12/19/2016 37 (H)12/18/2016 44 (H)12/17/2016 35 (H) Creatinine (mg/dL)Date Value12/19/2016 1.2211 1.41 (H)12/17/2016 1.22 WBC (k/uL)Date Value12/19/2016 7.5911 10.9611 9.21 Vancomycin Levels:Vancomycin, result (ug/mL)Date Value12/19/2016 16.111 37.9 (H) YIMI YUAN, INVESTOR RELATIONS ANALYST Normal [facility] TSH Receptor Ab.on 7 TBI <1.0 Normal <1.0 [facility] Comment on above: Result Comment: This test was developed and its performance characteristics determined by [facility]'s [facility] ([facility]).It has not been cleared or approved by the FDA. [facility] is regulated under CLIA as qualified to perform high-complexity testing.This test is used for clinical purposes. It should not be regarded as investigational or for research. Performed By: #### F REET3, TRAB ####[facility] [address] [place], [place] [phone] TSI <13 Normal <150 [facility] Comment on above: Result Comment: Resu lt rechecked. Performed By: #### F REET3, TRAB ####[facility] [address] [place], [place] [phone] Vancomycinon 12-19-2016 Vancomycin 16.1 ug/mL Normal 5.0-20.0 [facility] Comment on above: Result Comment: Refe rence ranges and high/low indicator flags are provided as general guidelines only. The treating physician must determine appropriate target levels/dosing based on the specific clinical situation. Performed By: #### V ANCRA ####[place] [address] CBCon 12-18-2016 Erythrocyte distribution width Auto Ratio (RBC) 17.0 % High 11.5-15.0 [facility] Comment on above: Performed By: #### C BCDIF, PT, PTT, CMP, MG1 ####[place] [address] Erythrocytes (RBC) 4.33 10*6/uL Normal 3.90-5.20 [facility] Comment on above: Performed By: #### C BCDIF, PT, PTT, CMP, MG1 ####[place] [address] Hematocrit (HCT) 36.7 % Normal 36.0-46.0 [facility] Comment on above: Performed By: #### C BCDIF, PT, PTT, CMP, MG1 ####[place] [address] Hemoglobin mass conc (Bld) 11.8 g/dL Normal 11.5-15.5 [facility] Comment on above: Performed By: #### C BCDIF, PT, PTT, CMP, MG1 ####[place] [address] MCH 27.3 pG Normal 26.0-34.0 [facility] Comment on above: Performed By: #### C BCDIF, PT, PTT, CMP, MG1 ####[place] [address] MCHC mass conc (RBC) 32.2 g/dL Normal 30.5-36.0 [facility] Comment on above: Performed By: #### C BCDIF, PT, PTT, CMP, MG1 ####[place] [address] MCV 84.8 fL Normal 80.0-100.0 [facility] Comment on above: Performed By: #### C BCDIF, PT, PTT, CMP, MG1 ####[place] [address] Platelet mean volume (PMV) 10.1 fL Normal 9.0-12.7 [facility] Comment on above: Performed By: #### C BCDIF, PT, PTT, CMP, MG1 ####[facility] [id number] [place] [address] Platelets 267 10*3/uL Normal 150-400 [facility] Comment on above: Performed By: #### C BCDIF, PT, PTT, CMP, MG1 ####[facility] [id number] [place] [address] WBC (Leukocytes) 10.96 10*3/uL Normal 3.70-11.00 [facility] Comment on above: Performed By: #### C BCDIF, PT, PTT, CMP, MG1 ####[facility] [address] [place] [address] CONSULTon 12-18-2016 CONSULT HNO ID: [id number] thor: Elmer Castanon NetoService: Pulmonary DiseaseAuthor Type: PhysicianType: ConsultsFiled: 12/18/2016 1:10 PMNote Text:Respiratory InstituteCONSULTATION NOTEConsulting Physician: Dr. Ornel[facility]McLeod [facility]: Asthma exacerbationHPI: This is a 61 year old year-old F with a PMHx significant for asthma,VTE and HTN, here for management of asthma with respiratory tractinfection. States that symptoms started a couple of months ago as an URIthat triggered her usual asthma flare. Usually she takes 1-2 weeks ofsteroids and her asthma flare resolved. However, this time the asthmasymptoms/SOB/wheezin g lasted longer, until now. During this time she wasevaluated by local physicians and sputum culture grew MRSA. She did notrespond to course of doxycycline, so she presented to [place] [facility]. Here, sheis being treated for her asthma flare and for a respiratory tractinfection with ceftriaxone and vancomycin. CT chest did not show a veryconvincing consolidation/pneumonia.NEDA VILLAGOMEZ MEDICAL HISTORYDiagnosis Date- DVT (deep venous thrombosis) (HCC) 1995 Rt lower leg- PE (pulmonary embolism)- Unspecified asthma(493.90)- Unspecified essential hypertensionPAST SURGICAL HISTORYProcedure Laterality Date- APPENDECTOMY- DELIVERY ONLY , low cervical- COLONOSCOP W/ OR W/O BRSH SPEC 01-09-13- DEBRIDE SKIN AND SUBQ TISSU 02-10-12- FILTER PLACEMENT (VENA CAVA) 01-15-13- FNA WITH IMAGING 05/26/11 U/S FNA left thyroid nodule- FREEING BOWEL ADHESION,ENTEROLYSIS 03-24-12- INSER NON-TUNNEL CVC >= 5 YR 03-24-12- LAP INC CY RECUR COMP 01-18-13- PAST SURGICAL HISTORY OF 2003 right ankle surgery-fusion- PAST SURGICAL HISTORY OF 2009 right shoulder partial replacement- REPAIR INCIS HERNIA W MESH 01-31-12- REPAIR INCISIONAL HERNIA,LALO 01-31-12- TOTAL ABDOM HYSTERECTOMY 1996 Hysterectomy, RONN- TRANSCATH RETRIEVAL,PERCUT 02-21-13 FILTER REMOVALCurrent Facility-Administered Medications:enoxaparin 105 mg injection (LOVENOX) 1 mg/kg/dose SUBCUTANEOUS q 12 HRmorphine 1-2 mg injection 1-2 mg INTRAVENOUS q 4 H PRNdigoxin 0.25 mg tab(s) (LANOXIN) 0.25 mg ORAL DAILYpolyethylene glycol 3350 17 g packet (MIRALAX, GLYCOLAX) 17 g ORAL DAILY[START ON 12/19/2016] diltiazem CD 240 mg cap(s) (CARDIZEM CD, CARTIA XT)240 mg ORAL DAILYmethylPREDNISolone sod succinate(PF) 40 mg injection (Solu-MEDROL) 40 mgINTRAVENOUS q 12 H0.9% NaCl 10 mL 10 mL INTRAVENOUS q 12 H0.9% NaCl 20 mL 20 mL INTRAVENOUS PRNcodeine-guaiFENesin 5-10 mL oral liquid (ROBITUSSIN AC) 5-10 mL ORAL q 6 HPRNdextrose 40 % 15 g (INSTA-GLUCOSE) 15 g ORAL PRNOrglucagon 1 mg injection (GLUCAGEN) 1 mg INTRAMUSCULAR PRNOrdextrose 50% in water 25 mL syringe 12.5 g INTRAVENOUS PRNinsulin lispro injection (rapid acting) (HumaLOG) SUBCUTANEOUS w MEALSinsulin lispro injection (rapid acting) (HumaLOG) SUBCUTANEOUS AT BEDTIMEHYDROcodone 5 mg - acetaminophen 325 mg tablet (NORCO) 1-2 tablet ORAL q 6H PRNcefTRIAXone 1 g in sterile water 10 mL (ROCEPHIN) 1 g INTRAVENOUS q 24 Hipratropium-albuterol 3 mL nebulizer solution (DUONEB) 3 mL INHALATION QIDmontelukast 10 mg tab(s) (SINGULAIR) 10 mg ORAL AT BEDTIMEmagnesium oxide 400 mg tab(s) (MAG-OX) 400 mg ORAL DAILYspironolactone 25 mg tab(s) (ALDACTONE) [address] 40 mg tab(s) (PROTONIX) 40 mg ORAL DAILYhydroCHLOROthiazide 25 mg tab(s) (HYDRODIURIL, ESIDRIX) 25 mg ORAL DAILYaspirin, enteric coated 325 mg tab(s) (ASPIRIN, ENTERIC COATED) 325 mgORAL DAILYvancomycin dosing and monitoring per pharmacy OTHER As Directedipratropium-albute rol 3 mL nebulizer solution (DUONEB) 3 mL INHALATION q 2H PRNguaiFENesin 600 mg ER tab(s) (MUCINEX) 600 mg ORAL q 12 Hiv contrast (radiology procedure) INTRAVENOUS DIRECTED PRNALLERGIESAllergen Reactions- Clindamycin Hives- Macrodantin [Nitrof* Other: See Comments Off-balance- Percocet [Oxycodone* Other: See Comments Nausea- Sulfa (Sulfonamide * Rash, Itching localized rash and itching all over- Zithromax [Azithrom* Rash, Itching localized rash and itching all over- Zenicef [Other] Rash, Itching itching in mouth; localized rash and itching all overFAMILY HISTORYProblem Relation Age of Onset- Cancer Father skin- Hypertension Father- Cancer Maternal Grandmother colon- Cancer Paternal Grandfather leukemia- Diabetes Mother- Hypertension Mother- Ischemic Heart Disease Mother- Hypertension Maternal Grandfather- Ischemic Heart Disease Maternal Grandfather- Diabetes Maternal GrandfatherSocial History Marital status: Spouse name: Years of education: Number of children:Social History Main Topics Smoking status: Former Smoker Packs/day: 1.00 Years: 20.00 Types: Cigarettes Quit date: 10/29/1995 Alcohol use: No Drug use: NoREVIEW OF SYSTEMSGENERAL: No weight loss, malaise or feversHEENT: Negative for frequent or significant headaches, No changes inhearing or vision, no nose bleeds or other nasal problemsNECK: Negative for lumps, goiter, pain and significant neck swellingRESPIRATORY: See HPI.CARDIOVASCULAR: Negative for chest pain, leg swelling or palpitationsGI: No nausea, vomiting, or diarrheaGU: No history of dysuria, frequency or incontinenceMUSCULOSKELETA L: Negative for joint pain or swelling, back pain or musclepainSKIN: Negative for lesions, rash, and itchingPSYCH: Negative for sleep disturbance, mood disorder and recentpsychosocial stressorsHEMATOLOGY/LYMPHO LOGY: Negative for prolonged bleeding, bruising easily orswollen nodesENDOCRINE: Negative for cold or heat intolerance, polyuria, polydipsia andgoiterEXTREMITIES: No clubbing, no nail changes, no Raynaud'sNEURO: No history of headaches, syncope, paralysis, seizures or tremorsPhysical Exam:BP 157/95 Pulse 98 Temp 37.2 ?C (99 ?F) (Oral) Resp 18 Ht 157.5 cm(5' 2) Wt 106.9 kg (235 lb 10.8 oz) SpO2 92% BMI 43.1 kg/k4Mqhtuwh appearance: Well appearing, alert, in no acute distress,well-hydrated, well nourished.Skin: Skin color, texture, turgor normal, no suspicious rashes or lesionsHead: Normocephalic, no masses, lesions, tenderness or abnormalitiesEyes: No jaundice, no redness.Oropharynx: Lips, mucosa, and tongue normal, teeth and gums normal,oropharynx normalNeck: No adenopathy, no tendernessLungs: Bilateral wheezingHeart: RRR without murmur, gallop, or rubs. No ectopyAbdomen: Abdomen soft, non-tender.Extremities: No deformities, edema, skin discoloration, clubbing orcyanosis.Musculoskeletal : No joint swelling, deformity, or tendernessNeuro: Gait normal, grossly non-focal.Data Reviewed:WBC 10.9CT chest independently reviewed by me, with no definite consolidationsImpression/P ike:1. Asthma exacerbation- Patient has symptoms consistent with asthma exacerbation, with wheezingand SOB, typical for her usual flares except that this time is lastinglonger- Trigger for her flare was definitely a respiratory tract infection dueto her initial URI symptoms and positive sputum cultures. However, I amnot convinced she had a pneumonia, due to the lack of consolidation on herCT chest. Regardless, even if she had only a tracheobronchitis, due to herfailure to respond to outpatient oral antibiotics, I agree with IDrecommendation of IV antibiotics now. Please continue to follow IDrecommendations for AB management.- Continue IV steroids, but I would decrease it to q12h.- Continue with Duoneb.Belen Hernandez 2016 1:00 PM [facility] CONSULT HNO ID: [id number] thor: Santos Freyervice: Cardiovascular MedicineAuthor Type: PhysicianType: ConsultsFiled: 12/18/2016 11:13 AMNote Text:CONSULT: CARDIOLOGY SERVICESERVICE DATE: 12/18/2016SERVICE TIME: 10:46 AMCONSULTING PHYSICIAN: Santos Russ, MDPCP: Moreno Donnelly MDATTENDING: Kiara Mccabe FOR CONSULT: Arrhythmias /AF with RVRSUBJECTIVECHIEF COMPLAINT: General weakness [R53.1]HISTORY OF PRESENT ILLNESS: Ms. Stark is a 61 year old female whopresents for increasing SOB.She has history of asthma, remote PE, DVT, hypertension. She had developedpalpitations and SOB last night andWas found to have AF with RVR on the telemetry. She had no CP or fainting.Her SOB was worse with increase in fatigueNo fever. Her cough is improving with little sputumPAST MEDICAL HISTORYDiagnosis Date- DVT (deep venous thrombosis) (HCC) 1995 Rt lower leg- PE (pulmonary embolism)- Unspecified asthma(493.90)- Unspecified essential hypertensionPAST SURGICAL HISTORYProcedure Laterality Date- APPENDECTOMY- DELIVERY ONLY , low cervical- COLONOSCOP W/ OR W/O BRSH SPEC 01-09-13- DEBRIDE SKIN AND SUBQ TISSU 02-10-12- FILTER PLACEMENT (VENA CAVA) 01-15-13- FNA WITH IMAGING 05/26/11 U/S FNA left thyroid nodule- FREEING BOWEL ADHESION,ENTEROLYSIS 03-24-12- INSER NON-TUNNEL CVC >= 5 YR 03-24-12- LAP INC CY RECUR COMP 01-18-13- PAST SURGICAL HISTORY OF 2003 right ankle surgery-fusion- PAST SURGICAL HISTORY OF 2009 right shoulder partial replacement- REPAIR INCIS HERNIA W MESH 01-31-12- REPAIR INCISIONAL HERNIA,LALO 01-31-12- TOTAL ABDOM HYSTERECTOMY 1996 Hysterectomy, RONN- TRANSCATH RETRIEVAL,PERCUT 02-21-13 FILTER REMOVALFAMILY HISTORYProblem Relation Age of Onset- Cancer Father skin- Hypertension Father- Cancer Maternal Grandmother colon- Cancer Paternal Grandfather leukemia- Diabetes Mother- Hypertension Mother- Ischemic Heart Disease Mother- Hypertension Maternal Grandfather- Ischemic Heart Disease Maternal Grandfather- Diabetes Maternal GrandfatherSocial HistorySubstance Use Topics- Smoking status: Former Smoker Packs/day: 1.00 Years: 20.00 Types: Cigarettes Quit date: 10/29/1995- Smokeless tobacco: Not on file- Alcohol use NoPrior to Admission MedicationsPrescriptions Last Dose Informant Patient Reported? Taking?Omeprazole (PRILOSEC) 40 mg capsule 12/15/2016 at 0700 Yes YesSig: Take 40 mg by mouth once daily.acetaminophen (TYLENOL ARTHRITIS PAIN) 650 mg CR tablet 12/14/2016 at 2200 Yes YesSig: Take 1,300 mg by mouth at bedtime as needed.albuterol (PROVENTIL) 2.5 mg /3 mL (0.083 %) nebulizer solution 12/15/2016Yes YesSig: Use 2.5 mg via nebulizer every 4 hours as needed.albuterol HFA (PROAIR HFA) 90 mcg/actuation inhaler Yes YesSig: Inhale 2 Puffs as instructed every 4 hours as needed.aspirin, enteric coated (ASPIRIN, ENTERIC COATED) 325 mg EC [id number]/15/2016 at 0700 Yes YesSig: Take 325 mg by mouth once daily.diltiazem CD (CARDIZEM CD) 180 mg 24 hr capsule 12/15/2016 at 1200 Yes YesSig: Take 180 mg by mouth once daily.doxycycline hyclate (VIBRAMYCIN) 100 mg capsule 12/15/2016 at 0700 Yes YesSig: Take 100 mg by mouth twice daily. 12/17/16 AM last dosefluticasone (FLONASE) 50 mcg/actuation nasal spray 12/15/2016 at 0700 YesYesSig: Use 1 [place] in each nostril twice daily.fluticasone-salmeter ol (ADVAIR DISKUS) 500-50 mcg/dose dsdv 12/15/2016 [id number] Yes YesSig: Inhale 1 Puff as instructed twice daily.guaiFENesin (MUCINEX) 1,200 mg Ta12 12/15/2016 at 0700 Yes YesSig: Take by mouth twice daily.hydroCHLOROthiazide (HYDRODIURIL, ESIDRIX) 25 mg tablet 12/15/2016 at 1200Yes YesSig: Take 25 mg by mouth once daily.ipratropium-albutero l (DUONEB) 0.5 mg-3 mg(2.5 mg base)/3 mL nebu Unknownat Unknown time Yes YesSig: Inhale 3 mL as instructed every 4 hours as needed.magnesium oxide (MAG-OX) 400 mg tablet 12/14/2016 at 2200 Yes YesSig: Take 400 mg by mouth once daily.melatonin 3 mg 12/14/2016 at 2200 Yes YesSig: Take 3 mg by mouth daily at bedtime.montelukast (SINGULAIR) 10 mg tablet 12/14/2016 at 2200 Yes YesSig: Take 10 mg by mouth daily at bedtime.predniSONE (DELTASONE) 20 mg tablet Yes YesSig: Take 20 mg by mouth once daily. Taper starting 12/16/16 20mg x3 days,10mg x3days, 5mg x3 days. Then discontinuedspironolactone (ALDACTONE) 25 mg tablet 12/15/2016 at 1200 Yes YesSig: Take 25 mg by mouth twice daily.Facility-Administere d Medications: NoneCurrent hospital medications:enoxaparin 105 mg injection (LOVENOX) 1 mg/kg/dose SUBCUTANEOUS q 12 HRmorphine 1-2 mg injection 1-2 mg INTRAVENOUS q 4 H PRNdigoxin 0.25 mg tab(s) (LANOXIN) 0.25 mg ORAL DAILYdiltiazem 125 mg in D5W 125 mL iv infusion (CARDIZEM) 10 mg/hr INTRAVENOUSCONTINUOUSpolye thylene glycol 3350 17 g packet (MIRALAX, GLYCOLAX) 17 g ORAL DAILY0.9% NaCl 10 mL 10 mL INTRAVENOUS q 12 H0.9% NaCl 20 mL 20 mL INTRAVENOUS PRNcodeine-guaiFENesin 5-10 mL oral liquid (ROBITUSSIN AC) 5-10 mL ORAL q 6 HPRNdextrose 40 % 15 g (INSTA-GLUCOSE) 15 g ORAL PRNglucagon 1 mg injection (GLUCAGEN) 1 mg INTRAMUSCULAR PRNdextrose 50% in water 25 mL syringe 12.5 g INTRAVENOUS PRNinsulin lispro injection (rapid acting) (HumaLOG) SUBCUTANEOUS w MEALSinsulin lispro injection (rapid acting) (HumaLOG) SUBCUTANEOUS AT BEDTIMEHYDROcodone 5 mg - acetaminophen 325 mg tablet (NORCO) 1-2 tablet ORAL q 6H PRNcefTRIAXone 1 g in sterile water 10 mL (ROCEPHIN) 1 g INTRAVENOUS q 24 HmethylPREDNISolone sod succinate(PF) 40 mg injection (Solu-MEDROL) 40 mgINTRAVENOUS q 8 Hipratropium-albuterol 3 mL nebulizer solution (DUONEB) 3 mL INHALATION QIDdiltiazem CD 180 mg cap(s) (CARDIZEM CD, CARTIA XT) 180 mg ORAL DAILYmontelukast 10 mg tab(s) (SINGULAIR) 10 mg ORAL AT BEDTIMEmagnesium oxide 400 mg tab(s) (MAG-OX) 400 mg ORAL DAILYspironolactone 25 mg tab(s) (ALDACTONE) [address] 40 mg tab(s) (PROTONIX) 40 mg ORAL DAILYhydroCHLOROthiazide 25 mg tab(s) (HYDRODIURIL, ESIDRIX) 25 mg ORAL DAILYaspirin, enteric coated 325 mg tab(s) (ASPIRIN, ENTERIC COATED) 325 mgORAL DAILYvancomycin dosing and monitoring per pharmacy OTHER As Directedipratropium-albute rol 3 mL nebulizer solution (DUONEB) 3 mL INHALATION q 2H PRNguaiFENesin 600 mg ER tab(s) (MUCINEX) 600 mg ORAL q 12 Hiv contrast (radiology procedure) INTRAVENOUS DIRECTED PRNALLERGIESAllergen Reactions- Clindamycin Hives- Macrodantin [Nitrof* Other: See Comments Off-balance- Percocet [Oxycodone* Other: See Comments Nausea- Sulfa (Sulfonamide * Rash, Itching localized rash and itching all over- Zithromax [Azithrom* Rash, Itching localized rash and itching all over- Zenicef [Other] Rash, Itching itching in mouth; localized rash and itching all overREVIEW OF SYSTEMS:The following systems were reviewed with the patient, and are unremarkableother than as described below.SYSTEMIC: No fever, chills, or change in weight or appetiteHEENT: No recent change in vision or hearing.CARDIOVASCULAR: See HPI.GI: No recent nausea, vomiting or diarrhea.: No recent hematuria or dysuria.SKIN: No new recent itching or eruption.PSYCH: No recent active anxiety or depression.HEMATOLOGY/ONCO LOGY: No recent diagnosis of bleeding or cancer.ENDOCRINE: No recent polyuria or heat intolerance.NEURO: No recent TIA, stroke or seizures.RHEUMATOLOGY: No recent active connective tissue disease.OBJECTIVEPHYSICAL EXAM:Pleasant, not in acute distress.Awake, alert, oriented times 3.Moves all extremities.SKIN: Has bruising reyes on the upper extremities. No lumps.HEENT: Normocephalic, face symmetrical.NECK: Supple, no JVD, no carotid bruit, no thyromegaly.LUNGS: She has wheezing to auscultation bilaterally.CARDIAC: Normal S1 and S2, no S3 or S4, no additional heart sounds ormurmurs.ABDOMEN: Soft, nontender, bowel sounds present.EXTREMITIES: Right shoulder extension and abduction is limited. Mildpitting edema.PULSES: Peripheral pulses present.NEURO: NonfocalBody mass index is 43.63 kg/(m2).Patient Vitals for the past 24 hrs: BP Temp Temp src Pulse Resp SpO2 Ofnddq53/04/17 1015 140/75 37.3 ?C (99.1 ?F) Oral 92 18 94 % -12/18/16 0832 - - - 93 18 - -12/18/16 0822 - - - 92 20 96 % -12/18/16 0751 128/69 37.1 ?C (98.8 ?F) Oral 86 18 95 % -12/18/16 0657 138/84 - Oral 89 17 97 % -12/18/16 0600 - - - - - - 108.2 kg (238 lb 8.6 oz)12/18/16 0516 - - - (!) 140 - - -12/18/16 0419 103/70 36.7 ?C (98.1 ?F) Oral 88 18 95 % -12/18/16 0214 146/72 37 ?C (98.6 ?F) Oral (!) 160 18 96 % -12/18/16 0101 151/93 37 ?C (98.6 ?F) Oral (!) 160 19 96 % -12/18/16 0050 - - - 90 18 - -12/18/16 0036 - - - 93 18 96 % -12/17/16 1925 - - - 92 18 - -12/17/16 1915 - - - 93 20 96 % -12/17/16 1600 143/77 36.7 ?C (98.1 ?F) Oral 91 16 97 % -12/17/16 1200 153/83 36.9 ?C (98.5 ?F) Oral 106 15 - -DATA:Diagnostic tests reviewed for today's visit:Most recent labs and imaging results.Most recent EKG. AF with RVR and nonspecific ST T changesTelemetry reviewed. Now in NSR with PACsPast 72 Hour Labs:Recent Labs 12/17/17037 725CK -- -- -- 62TROPT -- -- -- <0.010WBC 10.96 < > 8.34 9.37RBC 4.33 < > 4.81 4.97HB 11.8 < > 12.9 13.3HCT 36.7 < > 41.5 42.7MCV 84.8 < > 86.3 85.9MCH 27.3 < > 26.8 26.8MCHC 32.2 < > 31.1 31.1RDWCV 17.0* < > 17.1* 17.0*PLT 267 < > 293 312MPV 10.1 < > 10.3 10.0NEUTP -- -- 91.7 85.6LYMPHP -- -- 5.0 7.2MONOP -- -- 3.2 7.0EODINP -- -- 0.0 0.0BASOP -- -- 0.1 0.2ABSNEUT -- -- 7.64* 8.02*ABSMONO -- -- 0.27 0.66ABSEOSIN -- -- <0.03 <0.03ABSBASO -- -- <0.03 <0.03GLUC 224* < > 172* 158*BUN 44* < > 33* 33*CREAT 1.41* < > 1.11 1.12NA 130* < > 137 136K 4.0 < > 3.3* 3.6CHLOR 90* < > 92* 91*CO2 22* < > 23 24TPROT 6.2 < > 7.1 7.5ALB 3.5 < > 3.9 4.2CA 9.5 < > 9.6 10.2ALKPHOS 75 < > 92 98TBILI 0.4 < > 0.4 0.6AST 15 < > 12 13ALT 31 < > 31 32PTSEC -- -- -- 10.0APTT -- -- -- <20.0*INR -- -- -- 1.0MG -- -- -- 1.9< > = values in this interval not displayed.Last Lab Drawn:No results found for this basename: TSH,PROBNP,TG,HDL,LDL,CHOL IMPRESSION/RECOMMENDATIONS Patient Active Hospital Problem List: Weakness (12/16/2016) Obesity, Class III, BMI >= 40 (morbid obesity) E66.01 (12/16/2016) Malnutrition of moderate degree (HCC) (12/16/2016)PAF with RVRH/O DVT and Pulm Emboli (hypercoagulable state?)Had normal Echo EF 60% and normal SPECT scan at [facility] by Chuck recentlyASSESSMENT AND PLAN:I will D/C cardizem gtt and give her Cardizem 240 mg daily from tomorrow.Can D/D DigoxinRecommend Pradaxa 75 mg BID as Creatinine is little high today. If itnormalizes, we can give her 150 mg BIDAs she is at high risk of AF recurrence / Thromboembolic disease.I discussed risks and benefits and she agrees to monitor closelySIGNATURE: Santos Russ MD PATIENT NAME: Laura StarkDATE: December 18, 2016 : 10:46 AM PAGER/CONTACT #: [phone] Normal [facility] Comp Metabolic Panelon 12-18 Alanine aminotransferase (ALT) 31 U/L Normal 0-45 [facility] Comment on above: Performed By: #### C BCDIF, PT, PTT, CMP, MG1 ####[facility] [address] [place] [address] Albumin 3.5 g/dL Normal 3.5-5.0 [facility] Comment on above: Performed By: #### C BCDIF, PT, PTT, CMP, MG1 ####[facility] [address] [place] [address] Alkaline phosphatase (ALP) 75 U/L Normal 40-150 [facility] Comment on above: Performed By: #### C BCDIF, PT, PTT, CMP, MG1 ####[facility] [address] [place] [address] Anion gap 18 mmol/L High 0-15 [facility] Comment on above: Performed By: #### C BCDIF, PT, PTT, CMP, MG1 ####[place] [address] Aspartate aminotransferase (AST) 15 U/L Normal 7-40 [facility] Comment on above: Performed By: #### C BCDIF, PT, PTT, CMP, MG1 ####[place] [address] Bilirubin (total) 0.4 mg/dL Normal 0.0-1.5 [facility] Comment on above: Performed By: #### C BCDIF, PT, PTT, CMP, MG1 ####[place] [address] Calcium 9.5 mg/dL Normal 8.5-10.5 [facility] Comment on above: Performed By: #### C BCDIF, PT, PTT, CMP, MG1 ####[facility] [address] [place] [address] Chloride 90 mmol/L Low 98-110 [facility] Comment on above: Performed By: #### C BCDIF, PT, PTT, CMP, MG1 ####[place] [address] CO2 22 mmol/L Low 23-32 [facility] Comment on above: Performed By: #### C BCDIF, PT, PTT, CMP, MG1 ####[facility] [address] [place] [address] Creatinine 1.41 mg/dL High 0.70-1.40 [facility] Comment on above: Performed By: #### C BCDIF, PT, PTT, CMP, MG1 ####[facility] [address] [place] [address] eGFR (non-black) 38 . Normal [facility] Comment on above: Result Comment: eGFR (Estimated GFR) Units of measure: mL/min/1.73 meters squaredeGFR is derived from the reexpressed MDRD Study equation using the following parameters: serum creatinine, age, gender and race. The creatinine assay has been calibrated to be traceable to IDMS.An eGFR <60 mL/min/1.73m2 for >3 months is consistent with chronic kidney disease. Refer to KDOQI guidelines for clinical interpretation.In patients with unstable renal function, e.g. those with acute kidney injury, the eGFR may not accurately reflect actual GFR. Performed By: #### C BCDIF, PT, PTT, CMP, MG1 ####[facility] [address] [place] [address] eGFR (non-black) 46 mL/min/{1.73_m2} Normal [facility] Comment on above: Performed By: #### C BCDIF, PT, PTT, CMP, MG1 ####[facility] [address] [place] [address] Glucose mass conc 224 mg/dL High 65-100 [facility] Comment on above: Performed By: #### C BCDIF, PT, PTT, CMP, MG1 ####[facility] [address] [place] [address] Potassium molar conc 4.0 mmol/L Normal 3.5-5.0 [facility] Comment on above: Performed By: #### C BCDIF, PT, PTT, CMP, MG1 ####[facility] [address] [place] [address] Protein 6.2 g/dL Normal 6.0-8.4 [facility] Comment on above: Performed By: #### C BCDIF, PT, PTT, CMP, MG1 ####[facility] [address] [place] [address] Sodium 130 mmol/L Low 132-148 [facility] Comment on above: Performed By: #### C BCDIF, PT, PTT, CMP, MG1 ####[facility] [address] [place] [address] Urea nitrogen 44 mg/dL High 8-25 [facility] Comment on above: Performed By: #### C BCDIF, PT, PTT, CMP, MG1 ####[facility] [address] [place] [address] Free T4on 12-18-2016 Thyroxine (T4) free 1.9 ng/dL High 0.9-1.7 [facility] Comment on above: Performed By: #### C BCDIF, PT, PTT, CMP, MG1 ####[facility] [address] [place] [address] NT Pro BNPon 12-18-2016 PRO B Natr Peptide 789 pg/mL High <125 [facility] Comment on above: Performed By: #### C BCDIF, PT, PTT, CMP, MG1 ####[facility] [address] [place] [address] NURSING PROGon 12-18-2016 NURSING PROG HNO ID: [id number] thor: Maritza (Rn) Delma, RNService: (none)Author Type: Registered NurseType: Nursing Progress NoteFiled: 12/18/2016 6:24 PMNote Text: Nursing Progress NotePatient Name: Laura StarkMRN: [id number] Location: [place] [id number]___ Daily Note:0715- Bedside report received. Pt resting in bed. Denies needs. Call lightwithin reach.0800- Resting in bed. AANDOx3. Apical regular. Denies palpitations ordyspnea. C/O intermittent chest discomfort due to cough. Lungs with coarseexpiratory wheezes. Resp easy on RA. Moist cough noted. Harsh, raspy voicenoted. Abd soft, obese. BSx4. Skin warm, dry,color pink. PPP. RUEnon-pitting edema noted, elevated. NS at 75 ml/hr and Diltiazem at 10ml/hr infusing through RUE PICCline without difficulty. Denies needs. Calllight within reach.0930- Resting in bed. PO meds, Rocephin IV push, and Humalog 2 units SQgiven. Fresh ice water provided. Denies other needs. Call light withinreach.1015- Dr. Jovanna jennings.1055- Cardizem gtt decreased to 5 ml/hr. Dr. Jeb jennings, aware of ptconverting to SR, states ok to titrate off Cardizem gtt.1200- Remains in SR, HR 90-100. Cardizem discontinued. Family at bedside.Pt sitting on edge of bed. C/O nausea. Breanne sanjiv and saltine crackersprovided.1410- Pt sitting on edge of bed. Still having nausea. Family at bedside.1415- Paged Dr. Nugent for nausea med.1530- No return phone call. Repaged.1615- Spoke with Dr. Nugent regarding nausea, order received.1700- Pt resting in bed. Aware of order for nausea. Pt denies need at thistime. Call light within reach.1815- Pt's HR 130's. Pt repositioned herself to edge of bed. SOB noted.Will monitor. Denies needs. Call light within reach.This note was completed by: Maritza Nguyễn RN [facility] NURSING PROG HNO ID: [id number] thor: Ernestina (Rn) LEVI Burgoservice: (none)Author Type: Registered NurseType: Nursing Progress NoteFiled: 12/18/2016 1:18 AMNote Text: Nursing Progress NotePatient Name: Laura StarkMRN: [id number] Location: [facility]0200/[id number]___ Daily Note:PCNA informed RN of tachycardia during routine vital signs. Pt rate 160bpm at 0101. Dr. Nugent notified- order for stat EKG and to give POcardizem now. Dr. Nugent called back at 0112 with EKG results of AtrialFibrillation with rapid ventricular response and possible inferiorsubendocardial injury. Verbal order to transfer patient to [address] [place] [address].This note was completed by: Ernestina Burgos RN [facility] PROGRESSon 12-18-2016 PROGRESS HNO ID: [id number] thor: Gaurang Antonio (Pharmacist)Service: PharmacyAuthor Type: PharmacistType: Progress NotesFiled: 12/18/2016 3:14 PMNote Text:PHARMACY VANCOMYCIN DOSING NOTEPatient Name: Laura Stark Admission Date:12/15/2016Date of Consult: 12/18/2016 Time of Consult: 3:12 PMIndication: PneumoniaGoal Range: 15-20 mcg/mLRECOMMENDATIONS/PLAN :Pharmacy consulted for vancomycin dosing for Laura Stark, a 61 yearold, female who is being treated with vancomycin.1. Vanco currently being held. Today is day 4 of therapy.2. The most recent vancomycin level was 37.9 mcg/mL drawn at 2200 on 12/17. This is a 11 hour level on the 3rd day of therapy.3. The next vancomycin level will be ordered for 0900 on 12/19 unlessclinically indicated sooner. (Pharmacy will order)We will follow patient renal function, vancomycin levels and doses withyou during the course of therapy. Additional recommendations will appearin follow up notes. If you have any questions, please contact pharmacy [phone].Age: 61 year oldAllergies:ALLERGIESAlle rgen Reactions- Clindamycin Hives- Macrodantin [Nitrof* Other: See Comments Off-balance- Percocet [Oxycodone* Other: See Comments Nausea- Sulfa (Sulfonamide * Rash, Itching localized rash and itching all over- Zithromax [Azithrom* Rash, Itching localized rash and itching all over- Zenicef [Other] Rash, Itching itching in mouth; localized rash and itching all overLast 3 Encounter Wt Readings: Date: Wt: 12/15/2016 106.9 kg (235 lb 10.8 oz) 04/12/2016 115.2 kg (254 lb) 10/04/2015 113.4 kg (250 lb)Last 1 Encounter Ht Readings: Date: Ht: 12/15/2016 157.5 cm (5' 2)CrCl: 47.5 mL/minTemp (24hrs), Av ?C (98.6 ?F), Min:36.7 ?C (98.1 ?F), Max:37.3 ?C(99.1 ?F) - Current Temp: 37.2 ?C (99 ?F)LabsBUN (mg/dL)Date Value12/18/2016 44 (H)12/17/2016 35 (H)12/16/2016 33 (H) Creatinine (mg/dL)Date Value12/18/2016 1.41 (H)12/17/2016 1.22102/16/2016 1.11 WBC (k/uL)Date Value12/18/2016 10.9611 9. 8.34 Vancomycin Levels:Vancomycin, result (ug/mL)Date Value12/17/2016 37.9 (H) Gaurang Antonio, Pharmacist [facility] PROGRESS HNO ID: [id number] thor: Kiara Fleming: General Internal MedicineAuthor Type: PhysicianType: Progress NotesFiled: 12/18/2016 12:31 PMNote Text:INTERNAL MEDICINE PROGRESS NOTEADMITTING PHYSICIAN: Kiara SternJECTIVECHIALENA COMPLAINT: Feeling better then yday but still with cough andcongestion.Current Facility-Administered Medications:enoxaparin 105 mg injection (LOVENOX) 1 mg/kg/dose SUBCUTANEOUS q 12 HRmorphine 1-2 mg injection 1-2 mg INTRAVENOUS q 4 H PRNdigoxin 0.25 mg tab(s) (LANOXIN) 0.25 mg ORAL DAILYpolyethylene glycol 3350 17 g packet (MIRALAX, GLYCOLAX) 17 g ORAL DAILY0.9% NaCl 10 mL 10 mL INTRAVENOUS q 12 H0.9% NaCl 20 mL 20 mL INTRAVENOUS PRNcodeine-guaiFENesin 5-10 mL oral liquid (ROBITUSSIN AC) 5-10 mL ORAL q 6 HPRNdextrose 40 % 15 g (INSTA-GLUCOSE) 15 g ORAL PRNOrglucagon 1 mg injection (GLUCAGEN) 1 mg INTRAMUSCULAR PRNOrdextrose 50% in water 25 mL syringe 12.5 g INTRAVENOUS PRNinsulin lispro injection (rapid acting) (HumaLOG) SUBCUTANEOUS w MEALSinsulin lispro injection (rapid acting) (HumaLOG) SUBCUTANEOUS AT BEDTIMEHYDROcodone 5 mg - acetaminophen 325 mg tablet (NORCO) 1-2 tablet ORAL q 6H PRNcefTRIAXone 1 g in sterile water 10 mL (ROCEPHIN) 1 g INTRAVENOUS q 24 HmethylPREDNISolone sod succinate(PF) 40 mg injection (Solu-MEDROL) 40 mgINTRAVENOUS q 8 Hipratropium-albuterol 3 mL nebulizer solution (DUONEB) 3 mL INHALATION QIDmontelukast 10 mg tab(s) (SINGULAIR) 10 mg ORAL AT BEDTIMEmagnesium oxide 400 mg tab(s) (MAG-OX) 400 mg ORAL DAILYspironolactone 25 mg tab(s) (ALDACTONE) [address] mg tab(s) (PROTONIX) 40 mg ORAL DAILYhydroCHLOROthiazide 25 mg tab(s) (HYDRODIURIL, ESIDRIX) 25 mg ORAL DAILYaspirin, enteric coated 325 mg tab(s) (ASPIRIN, ENTERIC COATED) 325 mgORAL DAILYvancomycin dosing and monitoring per pharmacy OTHER As Directedipratropium-albute rol 3 mL nebulizer solution (DUONEB) 3 mL INHALATION q 2H PRNguaiFENesin 600 mg ER tab(s) (MUCINEX) 600 mg ORAL q 12 Hiv contrast (radiology procedure) INTRAVENOUS DIRECTED PRNINTERVAL HISTORY OF PRESENT ILLNESS: Transferred [facility] due to rapidafib, now in NSR. No n/v/d.No orthopnea, pnd,cpain, fever, chills.Consult notes reviewed.OBJECTIVEPHYSICAL EXAM:Blood pressure 140/75, pulse 99, temperature 37.3 ?C (99.1 ?F),temperature source Oral, resp. rate 20, height 157.5 cm (5' 2), pemydf633.2 kg (238 lb 8.6 oz), SpO2 97 %.Body mass index is 43.63 kg/(m2).GENERAL: Morbidly Obese, Alert, Mild DistressNECK: SuppleLUNGS: Positive findings: rhonchi bibasilar, wheezing bibasilarCARDIAC: Normal S1 and S2;ABDOMEN: Soft, nontenderEXTREMITIES: Extremities normal, no deformities, edema, clubbing or skindiscoloration. Good capillary refill.NEURO: Alert, oriented X 3, Gait normal. Non-focal. Reflexes normal andsymmetric. Sensation grossly intact.PULSES: 2+ radialDATA:Diagnostic tests reviewed for today's visit:Most recent labs and imaging results.ASSESSMENT/PLANAct aravind Problems: Acute Asthma exacerbation with HCAP? recent sputum cx with MRSA and E.coli: Follow repeat cx, continue iv abx and decrease iv steroids. Continuenebs. Pulmonary eval. Add codeine cough syrup, Weakness POA: Yes Assessment AND Plan: due to above. Obesity, Class III, BMI >= 40 (morbid obesity) E66.01 Assessment AND Plan: encourage wt. Loss. Hyperglycemia due to steroids: Add SSI.PAF:Now in NSR,Cardio eval.SIGNATURE: Kiara Nugent MD PATIENT NAME: Laura Stark PAGER/CONTACT #: [facility] PROGRESS HNO ID: [id number] thor: Rolo Del Castillo (Pharmacist)Service: PharmacyAuthor Type: PharmacistType: Progress NotesFiled: 12/17/2016 10:55 PMNote Text:PHARMACY VANCOMYCIN DOSING NOTEPatient Name: Laura Stark Admission Date:12/15/2016Date of Consult: 12/17/2016 Time of Consult: 10:53 PMIndication: PneumoniaGoal Range: 15-20 mcg/mLRECOMMENDATIONS/PLAN :Pharmacy consulted for vancomycin dosing for Laura Stark, a 61 yearold, female who is being treated with vancomycin for pneumonia1. Patient is currently ordered Vancomycin 1.5 g IV q12h. Today is day 3of therapy.2. The most recent vancomycin level was 37.9 mcg/mL drawn at 2200 on 12/17. This is a 11 hour level on the 3rd day of therapy.3. Vancomycin level above therapeutic goal range. Continue to holdfurther vancomycin IV doses.4. The next vancomycin level will be ordered for 12/18 unless clinicallyindicated sooner. (Pharmacy will order)We will follow patient renal function, vancomycin levels and doses withyou during the course of therapy. Additional recommendations will appearin follow up notes. If you have any questions, please contact pharmacy [phone].Age: 61 year oldAllergies:ALLERGIESAlle rgen Reactions- Clindamycin Hives- Macrodantin [Nitrof* Other: See Comments Off-balance- Percocet [Oxycodone* Other: See Comments Nausea- Sulfa (Sulfonamide * Rash, Itching localized rash and itching all over- Zithromax [Azithrom* Rash, Itching localized rash and itching all over- Zenicef [Other] Rash, Itching itching in mouth; localized rash and itching all overLast 3 Encounter Wt Readings: Date: Wt: 12/15/2016 107 kg (236 lb) 04/12/2016 115.2 kg (254 lb) 10/04/2015 113.4 kg (250 lb)Last 1 Encounter Ht Readings: Date: Ht: 12/15/2016 157.5 cm (5' 2)CrCl: 55 mL/minTemp (24hrs), Av.8 ?C (98.2 ?F), Min:36.4 ?C (97.5 ?F), Max:37 ?C(98.6 ?F) - Current Temp: 36.7 ?C (98.1 ?F)LabsBUN (mg/dL)Date Value12/17/2016 35 (H)12/16/2016 33 (H)12/15/2016 33 (H) Creatinine (mg/dL)Date Value12/17/2016 1.22102/16/2016 1.1111 1.12 WBC (k/uL)Date Value12/17/2016 9.21102/16/2016 8.3411 9.37 Vancomycin Levels:Vancomycin, result (ug/mL)Date Value12/17/2016 37.9 (H) Rolo Del Castillo, Pharmacist [facility] 12-18-2016 Thyroid stimulating hormone (TSH) 0.242 uU/mL Low 0.400-5.50 0 [facility] Comment on above: Performed By: #### C BCDIF, PT, PTT, CMP, MG1 ####[facility] [address] [place] [address] Vancomycinon 12-18-2016 Vancomycin 37.9 ug/mL High 5.0-20.0 [facility] Comment on above: Result Comment: Refe rence ranges and high/low indicator flags are provided as general guidelines only. The treating physician must determine appropriate target levels/dosing based on the specific clinical situation. Performed By: #### C BCDIF, PT, PTT, CMP, MG1 ####[facility] [address] [place] [address] CBCon 12-17-2016 Erythrocyte distribution width Auto Ratio (RBC) 17.2 % High 11.5-15.0 [facility] Comment on above: Performed By: #### C BCDIF, PT, PTT, CMP, MG1 ####[facility] [address] [place] [address] Erythrocytes (RBC) 4.50 10*6/uL Normal 3.90-5.20 [facility] Comment on above: Performed By: #### C BCDIF, PT, PTT, CMP, MG1 ####[place] [address] Hematocrit (HCT) 38.7 % Normal 36.0-46.0 [facility] Comment on above: Performed By: #### C BCDIF, PT, PTT, CMP, MG1 ####[place] [address] Hemoglobin mass conc (Bld) 12.2 g/dL Normal 11.5-15.5 [facility] Comment on above: Performed By: #### C BCDIF, PT, PTT, CMP, MG1 ####[place] [address] MCH 27.1 pG Normal 26.0-34.0 [facility] Comment on above: Performed By: #### C BCDIF, PT, PTT, CMP, MG1 ####[facility] [phone] MCHC mass conc (RBC) 31.5 g/dL Normal 30.5-36.0 [facility] Comment on above: Performed By: #### C BCDIF, PT, PTT, CMP, MG1 ####[facility] [address] [place] [phone] MCV 86.0 fL Normal 80.0-100.0 [facility] Comment on above: Performed By: #### C BCDIF, PT, PTT, CMP, MG1 ####[facility] [address] [place] [phone] Platelet mean volume (PMV) 10.3 fL Normal 9.0-12.7 [facility] Comment on above: Performed By: #### C BCDIF, PT, PTT, CMP, MG1 ####[facility] [address] Platelets 266 10*3/uL Normal 150-400 [facility] Comment on above: Performed By: #### C BCDIF, PT, PTT, CMP, MG1 ####[facility] [address] [place] [phone] WBC (Leukocytes) 9.21 10*3/uL Normal 3.70-11.00 [facility] Comment on above: Performed By: #### C BCDIF, PT, PTT, CMP, MG1 ####[facility] [phone] CONSULTon 12-17-2016 CONSULT HNO ID: [id number] thor: Emeterio Olivera: Pulmonary DiseaseAuthor Type: PhysicianType: ConsultsFiled: 12/17/2016 3:44 PMNote Text:[facility] Res[facility] Hardy Consultation Note, 12/17/2016When I stopped in to consult with patient, PICC team was around bedside,placing sterile drapes, in preparation of PICC line placement.I excused myself, and will try to return later today to completeconsultation.Bhupendra Braxton MD, [facility] [address] [address]C: [phone]: [phone] [facility] CONSULT PROGon 12-17-2016 CONSULT PROG HNO ID: [id number] thor: PARVIN Roldanervice: Infectious DiseaseAuthor Type: PhysicianType: Consult Progress NoteFiled: 12/17/2016 3:40 PMNote Text:INFECTIOUS DISEASE PROGRESS NOTEPatient Name: Laura Stark HISTORY:PICC placed. No fevers. SOB is better. Still weak. No diarrhea. ROSchecked in details. All qs answered.Patient Active Hospital Problem List: Weakness (12/16/2016) Obesity, Class III, BMI >= 40 (morbid obesity) E66.01 (12/16/2016) Malnutrition of moderate degree (HCC) (12/16/2016)ASSESSMENT:MRSA and E coli HCAPButtock woundAcute respiratory failureFailed OP PO abx treatment w doxyWeaknessObesity, Class III, BMI >= 40Malnutrition of moderate degreeRECOMMENDATIONS:Cont inue abxFollow cxSupportive carePO abx at discharge anticipated.MEDICATIONS: reviewed.Current hospital medications:0.9% NaCl 10 mL 10 mL INTRAVENOUS q 12 H0.9% NaCl 20 mL 20 mL INTRAVENOUS PRNcodeine-guaiFENesin 5-10 mL oral liquid (ROBITUSSIN AC) 5-10 mL ORAL q 6 HPRNHYDROcodone 5 mg - acetaminophen 325 mg tablet (NORCO) 1-2 tablet ORAL q 6H PRNheparin 5,000 Units injection 5,000 Units SUBCUTANEOUS q 12 Hvancomycin 1.5 g in D5W 250 mL 1.5 g INTRAVENOUS q 12 HRcefTRIAXone 1 g in sterile water 10 mL (ROCEPHIN) 1 g INTRAVENOUS q 24 HmethylPREDNISolone sod succinate(PF) 40 mg injection (Solu-MEDROL) 40 mgINTRAVENOUS q 8 Hipratropium-albuterol 3 mL nebulizer solution (DUONEB) 3 mL INHALATION QIDdiltiazem CD 180 mg cap(s) (CARDIZEM CD, CARTIA XT) 180 mg ORAL DAILYmontelukast 10 mg tab(s) (SINGULAIR) 10 mg ORAL AT BEDTIMEmagnesium oxide 400 mg tab(s) (MAG-OX) 400 mg ORAL DAILYspironolactone 25 mg tab(s) (ALDACTONE) [address] 40 mg tab(s) (PROTONIX) 40 mg ORAL DAILYhydroCHLOROthiazide 25 mg tab(s) (HYDRODIURIL, ESIDRIX) 25 mg ORAL DAILYaspirin, enteric coated 325 mg tab(s) (ASPIRIN, ENTERIC COATED) 325 mgORAL DAILYvancomycin dosing and monitoring per pharmacy OTHER As Directedipratropium-albute rol 3 mL nebulizer solution (DUONEB) 3 mL INHALATION q 2H PRNguaiFENesin 600 mg ER tab(s) (MUCINEX) 600 mg ORAL q 12 Hiv contrast (radiology procedure) INTRAVENOUS DIRECTED PRNPHYSICAL EXAM:Vital signs: BP 153/83 Pulse 106 Temp 36.9 ?C (98.5 ?F) (Oral) Resp15 Ht 157.5 cm (5' 2) Wt 107 kg (236 lb) SpO2 97% BMI 43.16 kg/m2Temp (24hrs), Av.8 ?C (98.2 ?F), Min:36.4 ?C (97.5 ?F), Max:37 ?C(98.6 ?F)General: alert, oriented, NADLungs: bilaterally clear to auscultationHeart: regular rate and rhythmAbdomen: soft, non tender, non distended, BS+Extremities: no edemaNo rashesNo joint inflammationNeck suppleLines okNo CVATLabs:Recent Labs 41725WBC 9.21 8.34 9.37HB 12.2 12.9 13.3HCT 38.7 41.5 42.7PLT 266 293 312INR -- -- 1.0APTT -- -- <20.0*NA 134 137 136K 4.5 3.3* 3.6CHLOR 94* 92* 91*CO2 23 23 24BUN 35* 33* 33*CREAT 1.22 1.11 1.12Microbiology data: reviewedImaging data: ANTHONY Preciadoager: date of service: 12/17/2016Time of service: 3:39 PMThis note is not final until Authenticated by responsible provider. [facility] Comp Metabolic Panelon 12-17 Alanine aminotransferase (ALT) 30 U/L Normal 0-45 [facility] Comment on above: Performed By: #### C BCDIF, PT, PTT, CMP, MG1 ####[facility] [address] [place] [address] Albumin 3.8 g/dL Normal 3.5-5.0 [facility] Comment on above: Performed By: #### C BCDIF, PT, PTT, CMP, MG1 ####[facility] [address] [place] [address] Alkaline phosphatase (ALP) 82 U/L Normal 40-150 [facility] Comment on above: Performed By: #### C BCDIF, PT, PTT, CMP, MG1 ####[facility] [address] [place] [address] Anion gap 17 mmol/L High 0-15 [facility] Comment on above: Performed By: #### C BCDIF, PT, PTT, CMP, MG1 ####[facility] [address] [place] [address] Aspartate aminotransferase (AST) 11 U/L Normal 7-40 [facility] Comment on above: Performed By: #### C BCDIF, PT, PTT, CMP, MG1 ####[facility] [address] [place] [address] Bilirubin (total) 0.4 mg/dL Normal 0.0-1.5 [facility] Comment on above: Performed By: #### C BCDIF, PT, PTT, CMP, MG1 ####[facility] [address] [place] [address] Calcium 9.9 mg/dL Normal 8.5-10.5 [facility] Comment on above: Performed By: #### C BCDIF, PT, PTT, CMP, MG1 ####[facility] [address] [place] [address] Chloride 94 mmol/L Low 98-110 [facility] Comment on above: Performed By: #### C BCDIF, PT, PTT, CMP, MG1 ####[facility] [address] [place] [address] CO2 23 mmol/L Normal 23-32 [facility] Comment on above: Performed By: #### C BCDIF, PT, PTT, CMP, MG1 ####[facility] [address] [place] [address] Creatinine 1.22 mg/dL Normal 0.70-1.40 [facility] Comment on above: Performed By: #### C BCDIF, PT, PTT, CMP, MG1 ####[facility] [address] [place] [address] eGFR (non-black) 45 . Normal [facility] Comment on above: Result Comment: eGFR (Estimated GFR) Units of measure: mL/min/1.73 meters squaredeGFR is derived from the reexpressed MDRD Study equation using the following parameters: serum creatinine, age, gender and race. The creatinine assay has been calibrated to be traceable to IDMS.An eGFR <60 mL/min/1.73m2 for >3 months is consistent with chronic kidney disease. Refer to KDOQI guidelines for clinical interpretation.In patients with unstable renal function, e.g. those with acute kidney injury, the eGFR may not accurately reflect actual GFR. Performed By: #### C BCDIF, PT, PTT, CMP, MG1 ####[facility] [address] [place] [address] eGFR (non-black) 54 mL/min/{1.73_m2} Normal [facility] Comment on above: Performed By: #### C BCDIF, PT, PTT, CMP, MG1 ####[facility] [address] [place] [address] Glucose mass conc 218 mg/dL High 65-100 [facility] Comment on above: Performed By: #### C BCDIF, PT, PTT, CMP, MG1 ####[facility] [address] [place] [address] Potassium molar conc 4.5 mmol/L Normal 3.5-5.0 [facility] Comment on above: Performed By: #### C BCDIF, PT, PTT, CMP, MG1 ####[facility] [address] [place] [address] Protein 6.4 g/dL Normal 6.0-8.4 [facility] Comment on above: Performed By: #### C BCDIF, PT, PTT, CMP, MG1 ####[facility] [address] [place] [phone] Sodium 134 mmol/L Normal 132-148 [facility] Comment on above: Performed By: #### C BCDIF, PT, PTT, CMP, MG1 ####[facility] [phone] Urea nitrogen 35 mg/dL High 8-25 [facility] Comment on above: Performed By: #### C BCDIF, PT, PTT, CMP, MG1 ####[facility] [address] [place] [phone] PROCEDUREon 12-17-2016 PROCEDURE HNO ID: [id number] thor: Brittnee (Rn) Javad, RNService: RadiologyAuthor Type: Registered NurseType: ProceduresFiled: 12/17/2016 3:28 PMNote Text:PICC NURSE INSERTION NOTEDATE OF PROCEDURE: December 17, 2016TIME OF PROCEDURE: 1500ORDERING PHYSICIAN: Brianne CONSENT: Obtained per hospital policy.INDICATION FOR LINE PLACEMENT: IV therapy over six daysCONDITION OF LINE PLACEMENT: SterilePRIMARY PROCEDURALIST: JURGEN CaroSISTANT: Brittnee FarnsworthPRE-PROCEDURE REVIEWALLERGIESAllergen Reactions- Clindamycin Hives- Macrodantin [Nitrof* Other: See Comments Off-balance- Percocet [Oxycodone* Other: See Comments Nausea- Sulfa (Sulfonamide * Rash, Itching localized rash and itching all over- Zithromax [Azithrom* Rash, Itching localized rash and itching all over- Zenicef [Other] Rash, Itching itching in mouth; localized rash and itching all overKnown History of Venous Thrombosis: NoKnown History of Permanent Pacemaker or Automated Implanted CardiacDevice: NoPrevious Breast Surgery of Lymph Node Dissection: NoHistory of Renal Disease with Arterio-Venous Fistula in Place or Planned:NoUltrasound Assessment Complete: Yes NoPROCEDURE NARRATIVESAFE PRACTICEHand Hygiene per Hospital Policy: YesSkin Preparation Unit Dose Applicator Used: Chloraprep (CHG + alcohol),allowed to dry.Procedure Surface Cleansed with Antimicrobial Wipes: YesBarriers Used by Proceduralist and all Assisting Personnel: YesUNIVERSAL PROTOCOL / SAFETY CHECKLISTProcedure to be performed:PICCSign in Communication: CompletedTime Out: Team Confirms the Correct Patient, Correct Procedure, CorrectSite and Site Marking, Correct Position (if applicable), Prep and Dry Time(if applicable). Time: 1505Affirmation of Time Out: YESSign Out Discussion: CompletedBrittnee Farnsworth RNCATHETER PLACEMENTBrand: Bard Lot: [id number] of Lumens: 1Type of PICC: Power Injectable PICCLumen Size: 4 FrenchPLACEMENT TECHNIQUELidocaine: Yes. Strength: 1% Volume 2 ccModified Seldinger Technique Used to Place Line via the Right BasilicUltrasound Guidance: YesNumber of Attempts at Insertion: 2Internal Length: 45 cm External Length: 2 cm Trim Length: 47 cmMid-Arm Circumference Above Insertion Site: 41 centimetersPost Insertion Pain Level Related to Procedure: 0Action Taken to Address Pain: None neededVerified Placement: Blood return, Ultrasound and Tip location system ordevice indicates the tip is located in the SVC/CAJ.Line was Flushed with 20 cc normal salineLine Secured with: Securement deviceSterile Dressing Applied and Dated: YesSterile Caps on all Ports Prior to Leaving Procedure Area: YesSPECIMENS: NoneCOMPLICATIONS: NonePatient Education Materials: Given to patientThe [facility] Central Line Insertion checklist, attached to theCentral Line-Associated Bloodstream Infection Prevention Policy, wasutilized during this procedure.QUESTIONS or PROBLEMS: Call [phone]: Brittnee Farnsworth RN PATIENT NAME: Laura StarkDATE: December 17, 2016 : 3:16 PM PAGER/CONTACT PHONE: [facility] PROGRESSon 12-17-2016 PROGRESS HNO ID: [id number] Author: Diann RivasRnBrett Dinero RN Service: (none) Author Type: Registered Nurse Type: Progress Notes Filed: 12/17/2016 4:16 PM Note Text: Student nurse documentation has been reviewed. [facility] PROGRESS HNO ID: [id number] thor: LEVI Parham Rnervice: RadiologyAuthor Type: Registered NurseType: Progress NotesFiled: 12/17/2016 3:14 PMNote Text:AMBULATORY PATIENT EDUCATIONTOPIC: Procedure PICCREADINESS TO LEARNCOGNITIVE ABILITY: Alert and orientedMOTIVATION TO LEARN: EagerFAMILY SUPPORT: None availibleINSTRUCTION PROVIDED TO: PatientPATIENT LEARNS BEST BY: Individual Instruction writtenFACTORS AFFECTING LEARNING: NonePHYSICAL LIMITATIONS AFFECTING LEARNING: NoneLEARNING RESPONSEDIAGNOSIS: Needs LTAMETHOD OF INSTRUCTION: Individual instructionWritten instruction - handoutsVerbal instructionPATIENT / FAMILY RESPONSE: Verbalizes understanding of: PRE-PROCEDUREINSTRUCTIONS- Correct action to take to follow pre-procedure instructionsFOLLOW-UP PLAN: Complete - No need for follow-upSUPPLEMENTAL MATERIAL: NoneREFERRAL (RECOMMENDATION): NoneElectronically Signed By: Brittnee Farnsworth RN In Department: [facility] PROGRESS HNO ID: [id number] thor: Kiara Fleming: General Internal MedicineAuthor Type: PhysicianType: Progress NotesFiled: 12/17/2016 4:39 PMNote Text:INTERNAL MEDICINE PROGRESS NOTESERVICE DATE: 12/17/2016ADMITTING PHYSICIAN: Kiara HamptonIVECHIALENA COMPLAINT: Feeling better then yday but still with cough andcongestion.Current Facility-Administered Medications:0.9% NaCl 10 mL 10 mL INTRAVENOUS q 12 H0.9% NaCl 20 mL 20 mL INTRAVENOUS PRNcodeine-guaiFENesin 5-10 mL oral liquid (ROBITUSSIN AC) 5-10 mL ORAL q 6 HPRNdextrose 40 % 15 g (INSTA-GLUCOSE) 15 g ORAL PRNOrglucagon 1 mg injection (GLUCAGEN) 1 mg INTRAMUSCULAR PRNOrdextrose 50% in water 25 mL syringe 12.5 g INTRAVENOUS PRNinsulin lispro injection (rapid acting) (HumaLOG) SUBCUTANEOUS w MEALSHYDROcodone 5 mg - acetaminophen 325 mg tablet (NORCO) 1-2 tablet ORAL q 6H PRNheparin 5,000 Units injection 5,000 Units SUBCUTANEOUS q 12 Hvancomycin 1.5 g in D5W 250 mL 1.5 g INTRAVENOUS q 12 HRcefTRIAXone 1 g in sterile water 10 mL (ROCEPHIN) 1 g INTRAVENOUS q 24 HmethylPREDNISolone sod succinate(PF) 40 mg injection (Solu-MEDROL) 40 mgINTRAVENOUS q 8 Hipratropium-albuterol 3 mL nebulizer solution (DUONEB) 3 mL INHALATION QIDdiltiazem CD 180 mg cap(s) (CARDIZEM CD, CARTIA XT) 180 mg ORAL DAILYmontelukast 10 mg tab(s) (SINGULAIR) 10 mg ORAL AT BEDTIMEmagnesium oxide 400 mg tab(s) (MAG-OX) 400 mg ORAL DAILYspironolactone 25 mg tab(s) (ALDACTONE) [address] 40 mg tab(s) (PROTONIX) 40 mg ORAL DAILYhydroCHLOROthiazide 25 mg tab(s) (HYDRODIURIL, ESIDRIX) 25 mg ORAL DAILYaspirin, enteric coated 325 mg tab(s) (ASPIRIN, ENTERIC COATED) 325 mgORAL DAILYvancomycin dosing and monitoring per pharmacy OTHER As Directedipratropium-albute rol 3 mL nebulizer solution (DUONEB) 3 mL INHALATION q 2H PRNguaiFENesin 600 mg ER tab(s) (MUCINEX) 600 mg ORAL q 12 Hiv contrast (radiology procedure) INTRAVENOUS DIRECTED PRNINTERVAL HISTORY OF PRESENT ILLNESS: No new events. No n/v/d.No orthopnea, pnd,cpain, fever, chills.Consult notes reviewed.OBJECTIVEPHYSICAL EXAM:Patient Vitals for the past 24 hrs: BP Temp Temp src Pulse Resp CcD12612/17/16 1600 143/77 36.7 ?C (98.1 ?F) Oral 91 16 97 %12/17/16 1200 153/83 36.9 ?C (98.5 ?F) Oral 106 15 -12/17/16 1010 - - - 95 18 -12/17/16 0959 - - - 106 20 97 %12/17/16 0830 136/80 37 ?C (98.6 ?F) Oral 78 14 99 %12/17/16 0625 - - - 85 20 -12/17/16 0617 - - - 80 20 100 %12/17/16 0006 109/75 36.4 ?C (97.5 ?F) Oral 87 18 98 %12/17/16 0002 - - - 98 18 -12/16/16 2345 - - - 97 18 98 %12/16/162017 - - - 88 16 97 %12/16/16 2007 129/62 36.8 ?C (98.2 ?F) Oral 90 18 96 %12/16/16 1645 - - - - 16 -Body mass index is 43.16 kg/(m2).GENERAL: Morbidly Obese, Alert, Mild DistressNECK: SuppleLUNGS: Positive findings: rhonchi bibasilar, wheezing bibasilarCARDIAC: Normal S1 and S2;ABDOMEN: Soft, nontenderEXTREMITIES: Extremities normal, no deformities, edema, clubbing or skindiscoloration. Good capillary refill.NEURO: Alert, oriented X 3, Gait normal. Non-focal. Reflexes normal andsymmetric. Sensation grossly intact.PULSES: 2+ radialDATA:Diagnostic tests reviewed for today's visit:Most recent labs and imaging results.ASSESSMENT/PLANAct aravind Problems: Acute Asthma exacerbation with recent sputum cx with MRSA and E. coli: Follow repeat cx, continue iv abx and steroids. Continue nebs. Pulmonaryeval. Add codeine cough syrup, Weakness POA: Yes Assessment AND Plan: due to above. Obesity, Class III, BMI >= 40 (morbid obesity) E66.01 Assessment AND Plan: encourage wt. Loss. Hyperglycemia due to steroids: Add SSI.SIGNATURE: Kiara Nugent MD PATIENT NAME: Laura StarkDATE: December 17, 2016 : 4:34 PM PAGER/CONTACT #: [facility] PROGRESS HNO ID: [id number] Author: Ottoniel LEON Service: (none) Author Type: (none) Type: Progress Notes Filed: 12/17/2016 8:40 AM Note Text: Received report from evening or night nurse supervisor GERMAIN Brownlee. [facility] ALLIED HEALTHon 12-16-2016 ALLIED HEALTH HNO ID: [id number] thor: Adilia (Rn) LEVI Wilsonervice: OstomyAuthor Type: Registered NurseType: Allied HealthFiled: 12/16/2016 12:55 PMNote Text:Wound Care Consult TeamMRN: [id number] NAME: Laura Stark is a 61 year old female with theadmitting diagnosis of general weakness.ALLERGIESAllergen Reactions- Clindamycin Hives- Macrodantin [Nitrof* Other: See Comments Off-balance- Percocet [Oxycodone* Other: See Comments Nausea- Sulfa (Sulfonamide * Rash, Itching localized rash and itching all over- Zithromax [Azithrom* Rash, Itching localized rash and itching all over- Zenicef [Other] Rash, Itching itching in mouth; localized rash and itching all overREASON FOR CONSULT: Consult visit today for ? Pressure injury (noassessment completed and ? Skin other to buttocks no assessmentdocumented.WCCT agrees with Pressure Ulcer documentation by Physician: Not ApplicableWCCT agrees with Pressure Ulcer documentation by Nurse: Not Applicable Add Pressure Ulcer Sites: (Site, Stage, Status (POA vs Acquired)1)2)3)4)Assessmen t Pt awake and alert. Reports history of recent hospital stay aweek ago and was told had MRSA to wound between buttocks. Has beentreating at home with regular cleansing/drying and folded gauze to wickmoisture. Patient also reports + e-coli and MSRA to sputum (?Cross-contamination?) On exam there is a narrow linear wound in the creasebetween her buttocks (6 x 0.5cm) with pale yellow base, no erythema, noodor noted. Patient has been on PO doxycycline since discharge fromspital. Bilateral feet with chronic changes noted, blanching purple hueto plantar forefoot and along the lateral aspect. Multiple dry callusesover the bony prominences. No pressure injury noted to either heel.ActiveRecommendations : Continue to keep buttocks skin crease clean and dry. Cantrial a piece of Interdry AG between buttocks secured at top with papertape and held in place with her underwear. When she toilets she can movethe Interdry and then tuck back in place. If this is not a workablesolution, recommend skin barrier cream (Desitin or Pinxav) applied afterevery use of toilet.Maintain all appropriate Nursing Pressure Ulcer Prevention Interventionsas needed per Mele Risk Assessment.My findings and recommendations for wound care will be communicatedthrough the shared Medical record.Wound Care Consult Team recommendations discussed with: Bedside RNpresent for assessment and recommendations. who will obtain necessaryorders from MD, Resident or LIP.Follow Up:Wound Care Consult will follow as needed.Units of Service (15 min per unit): 15 minElectronically Signed By: Adilia Wilson RN CWOCN from the Wound CareConsult TeamPAGER:DATE: December 16, 2016TIME: 12:40 PMThank you for including me in the care of this patient and please feelfree to re-consult me if necessary. [facility] CASE MGT INDURGA Almodovar 2016 CASE MGT INDURGA LINO HNO ID: [id number] thor: Yue Estrada (Lsw), RNService: (none)Author Type: Social WorkerType: Care Mgt Initial AssessmentFiled: 12/16/2016 3:21 PMNote Text:CARE MANAGEMENT: ASSESSMENT AND DISCHARGE PLANSERVICE DATE: 12/16/2016SERVICE TIME: 3:10 PMPRIMARY CARE PHYSICIAN:Moreno Donnelly MD - confirmed with patient. OMAMJGAOD STATUS: InpatientPOTENTIAL DISCHARGE PLANSHomeHome CareOutpatient TherapyTo Be DeterminedPatient/Represen tative Stated Goals: Pt would like to feel better, as shehas been feeling sick for some time, and return home to her family.Needs Prior to Discharge: To Be DeterminedHealth Insurance: Medical [place] ServicesLiving Arrangement: HomeLives With: Spouse and Daughter Daughter is 20yrs old and has multiplehandicaps per pt.Financial Resources: RetiredPrimary Contact:Extended Emergency Contact InformationPrimary Emergency Contact: Nixon StarkAddress: [address] [place] [address] [facility] Bfyzdj Lvnvbbwi: SpouseSupportive: YesOther Important Patient Contacts: NoneCAREGIVER ASSESSMENT:Caregiver is ready, willing and able to meet the patient's needs asrecommended by the inter-professional team? No Caregiver NeededPatient's transition needs and plan for meeting these needs: Anticipate ptto return home with no skilled services and her supportive .Does the patient have an acute stroke diagnosis, or has the patient had astroke during this admission? NoADVANCE DIRECTIVES:Does Patient Have Advance Directives? Yes: Living Will , copy is not inchartDoes Patient Have Concerns About Advance Directives? NoPRIOR TO ADMISSION:Baseline Mental Status: Alert AND Oriented, Person, Place , Time andSituationFunctional Status: IndependentDoes Patient Currently Receive Any Community Services or Home Care? NoneEquipment Prior to Admission: Aerosols/Intermittent positivebreathing/Respirat ory TreatmentsHEALTH:Health Issues Impacting Discharge Plan: Asthma, hx DVT/PE, HTNHealth Literacy Issues: NoPSYCHOSOCIAL:Is the Patient Psychosocially Complex? NoFamily/Patient Understanding of Illness/Diagnosis: Pt is understanding ofher current illness.Medication Adherence:Do you forget to take your medications? I do not forget to take mymedicationHave you ever stopped taking medications because you felt worse? None ofthe timeHave you ever taken less of your medication than what was prescribed byyour doctor? None of the timeIn the past 3 months, have you had issues obtaining one or more of yourmedications? None of the timeAre you interested in bedside delivery of your medications? No [facility] and [facility] [place] for short[facility] meds.Food Concerns:In the Last Month, Have You had Trouble Getting Food? No trouble gettingfoodDuring the Last Month, Have You Worried Whether Your Food Would Run OutBefore You Had Enough Money to Buy More? NoPsychosocial Needs: NoneUTILIZATION:Last Admission Date: noneIs this Within the Past 30 days? NoHas the Patient Been in a Jail Facility in the Past 30 days?N/AFREEDOM OF CHOICE EXPLAINED:N/MIREILLE COMMUNICATION:Pt not yet ready for d/c.Sw reviewed EMR and met with pt bedside to introduce self and role. Ptreports that she is from home with her and her 20yr old disableddtr. Pt reports that she is independent, uses no DME other than anebulizer as needed, no current skilled services. Pt reports no needs atd/c. Anticipate pt to return home with no skilled needs. Family toprovide d/c transportation.CM will continue to follow for any d/c planning needs.SIGNATURE: MARYURI Vera, SKID ROAD MAN PATIENT NAME: Laura StarkDATE: December 16, 2016 : 3:10 PM PAGER/CONTACT #: [phone] Normal [facility] CBC and Differentialon 12-16 Abs Baso <0.03 Normal <0.11 [facility] Comment on above: Performed By: #### C BCDIF, PT, PTT, CMP, MG1 ####[facility] [address] [place] [address] Abs Allegany 0.27 k/uL Normal <0.87 [facility] Comment on above: Performed By: #### C BCDIF, PT, PTT, CMP, MG1 ####[facility] [address] [place] [address] Abs Neut 7.64 k/uL High 1.45-7.50 [facility] Comment on above: Performed By: #### C BCDIF, PT, PTT, CMP, MG1 ####[facility] [address] [place] [address] Basophils/100 WBC Auto (Bld) 0.1 % Normal [facility] Comment on above: Performed By: #### C BCDIF, PT, PTT, CMP, MG1 ####[facility] [address] [place] [address] Eosinophils 10*3/uL Normal <0.46 [facility] Comment on above: Performed By: #### C BCDIF, PT, PTT, CMP, MG1 ####[facility] [address] [place] [address] Eosinophils/100 leukocytes 0.0 % Normal [facility] Comment on above: Performed By: #### C BCDIF, PT, PTT, CMP, MG1 ####[facility] [address] [place] [address] Erythrocyte distribution width Auto Ratio (RBC) 17.1 % High 11.5-15.0 [facility] Comment on above: Performed By: #### C BCDIF, PT, PTT, CMP, MG1 ####[facility] [address] [place] [address] Erythrocytes (RBC) 4.81 10*6/uL Normal 3.90-5.20 [facility] Comment on above: Performed By: #### C BCDIF, PT, PTT, CMP, MG1 ####[facility] [address] [place] [address] Hematocrit (HCT) 41.5 % Normal 36.0-46.0 [facility] Comment on above: Performed By: #### C BCDIF, PT, PTT, CMP, MG1 ####[facility] [address] [place] [address] Hemoglobin mass conc (Bld) 12.9 g/dL Normal 11.5-15.5 [facility] Comment on above: Performed By: #### C BCDIF, PT, PTT, CMP, MG1 ####[place] [address] Lymphocytes 0.42 10*3/uL Low 1.00-4.00 [facility] Comment on above: Performed By: #### C BCDIF, PT, PTT, CMP, MG1 ####[place] [address] Lymphocytes/100 leukocytes 5.0 % Normal [facility] Comment on above: Performed By: #### C BCDIF, PT, PTT, CMP, MG1 ####[place] [address] MCH 26.8 pG Normal 26.0-34.0 [facility] Comment on above: Performed By: #### C BCDIF, PT, PTT, CMP, MG1 ####[facility] [address] [place] [address] MCHC mass conc (RBC) 31.1 g/dL Normal 30.5-36.0 [facility] Comment on above: Performed By: #### C BCDIF, PT, PTT, CMP, MG1 ####[facility] [address] [place] [address] MCV 86.3 fL Normal 80.0-100.0 [facility] Comment on above: Performed By: #### C BCDIF, PT, PTT, CMP, MG1 ####[facility] Hgqofzaelw5866 [address] Monocytes/100 leukocytes 3.2 % Normal [facility] Comment on above: Performed By: #### C BCDIF, PT, PTT, CMP, MG1 ####[facility] Uzbioabrti0924 [address]7[address] Neutrophils/100 WBC Auto (Bld) 91.7 % Normal [facility] Comment on above: Performed By: #### C BCDIF, PT, PTT, CMP, MG1 ####[facility] Sdbbcainyx0575 [address] Platelet mean volume (PMV) 10.3 fL Normal 9.0-12.7 [facility] Comment on above: Performed By: #### C BCDIF, PT, PTT, CMP, MG1 ####[facility] [address] [place] [address] Platelets 293 10*3/uL Normal 150-400 [facility] Comment on above: Performed By: #### C BCDIF, PT, PTT, CMP, MG1 ####[facility] [address] [place] [address] WBC (Leukocytes) 8.34 10*3/uL Normal 3.70-11.00 [facility] Comment on above: Performed By: #### C BCDIF, PT, PTT, CMP, MG1 ####[facility] R[address]hfh6954 [address] CONSULTon 12-16-2016 CONSULT HNO ID: [id number] thor: PARVIN Roldanervice: Infectious DiseaseAuthor Type: PhysicianType: ConsultsFiled: 12/17/2016 3:38 PMNote Text:ID CONSULTPRIMARY CARE PHYSICIAN: PARVIN OsegueraUBJECTARAVINDCHIALENA COMPLAINT: CoughShortness of BreathFeverHPI: This is a 61 year old female w past medical history of asthma, DVTand PE not currently on any anticoagulation presenting to the ER withcough since October. She has seen pulmonology and was admitted to thespital December 06 and saw infectious disease. Her sputum was positivefor Escherichia coli and MRSA. She was given IV Vanco and Rocephin. Shewas supposed to get a PICC line but instead was sent home on doxycyclineof which she is currently on. She does home nebulizers and has been onsteroids forever. She quit smoking 27 years ago. She has chest painbut only with coughing. She does feel short of breath. She does have ahoarseness to her voice. She's not having lower extremity swelling pain.She has been running fevers and the symptoms have been worse over the lastfew days. She is to follow-up with Dr. Cardenas in infectious disease [facility] before the appt and decided to come to the ED. She was seen by Katie gomez per the patient.?PAST MEDICAL HISTORYDiagnosis Date- DVT (deep venous thrombosis) (HCC) 1995 Rt lower leg- PE (pulmonary embolism)- Unspecified asthma(493.90)- Unspecified essential hypertensionPAST SURGICAL HISTORYProcedure Laterality Date- APPENDECTOMY- DELIVERY ONLY , low cervical- COLONOSCOP W/ OR W/O [facility] SPEC 01-09-13- DEBRIDE SKIN AND SUBQ TISSU 02-10-12- FILTER PLACEMENT (VENA CAVA) 01-15-13- FNA WITH IMAGING 05/26/11 U/S FNA left thyroid nodule- FREEING BOWEL ADHESION,ENTEROLYSIS 03-24-12- INSER NON-TUNNEL CVC >= 5 YR 03-24-12- LAP INC CY RECUR COMP 01-18-13- PAST SURGICAL HISTORY OF 2003 right ankle surgery-fusion- PAST SURGICAL HISTORY OF 2009 right shoulder partial replacement- REPAIR INCIS HERNIA W MESH 01-31-12- REPAIR INCISIONAL HERNIA,LALO 01-31-12- TOTAL ABDOM HYSTERECTOMY 1996 Hysterectomy, RONN- TRANSCATH RETRIEVAL,PERCUT 02-21-13 FILTER REMOVALFAMILY HISTORYProblem Relation Age of Onset- Cancer Father skin- Hypertension Father- Cancer Maternal Grandmother colon- Cancer Paternal Grandfather leukemia- Diabetes Mother- Hypertension Mother- Ischemic Heart Disease Mother- Hypertension Maternal Grandfather- Ischemic Heart Disease Maternal Grandfather- Diabetes Maternal GrandfatherSocial HistorySubstance Use Topics- Smoking status: Former Smoker Packs/day: 1.00 Years: 20.00 Types: Cigarettes Quit date: 10/29/1995- Smokeless tobacco: Not on file- Alcohol use NoPrescriptions Prior to Admission:predniSONE (DELTASONE) 20 mg tablet Take 20 mg by mouth once daily. Taperstarting 12/16/16 20mg x3 days, 10mg x3days, 5mg x3 days. Thendiscontinued Disp: Rfl:doxycycline hyclate (VIBRAMYCIN) 100 mg capsule Take 100 mg by mouth twicedaily. 12/17/16 AM last dose Disp: Rfl: 12/15/2016 at 0700guaiFENesin (MUCINEX) 1,200 mg Ta12 Take by mouth twice daily. Disp:Rfl: 12/15/2016 at 0700fluticasone-salmeterol (ADVAIR DISKUS) 500-50 mcg/dose dsdv Inhale 1 [place] instructed twice daily. Disp: Rfl: 12/15/2016 at 0700ipratropium-albuterol (DUONEB) 0.5 mg-3 mg(2.5 mg base)/3 mL nebu Inhale 3mL as instructed every 4 hours as needed. Disp: Rfl: Unknown at Unknowntimealbuterol (PROVENTIL) 2.5 mg /3 mL (0.083 %) nebulizer solution Use 2.5 mgvia nebulizer every 4 hours as needed. Disp: Rfl: 12/15/2016spironolactone (ALDACTONE) 25 mg tablet Take 25 mg by mouth twice daily.Disp: Rfl: 12/15/2016 at 1200aspirin, enteric coated (ASPIRIN, ENTERIC COATED) 325 mg EC tablet [id number] mg by mouth once daily. Disp: Rfl: 12/15/2016 at 0700hydroCHLOROthiazide (HYDRODIURIL, ESIDRIX) 25 mg tablet Take 25 mg bymouth once daily. Disp: Rfl: 12/15/2016 at 1200magnesium oxide (MAG-OX) 400 mg tablet Take 400 mg by mouth once daily.Disp: Rfl: 12/14/2016 at 2200melatonin 3 mg Take 3 mg by mouth daily at bedtime. Disp: Rfl:12/14/2016 at 2200Omeprazole (PRILOSEC) 40 mg capsule Take 40 mg by mouth once daily. Disp:Rfl: 12/15/2016 at 0700montelukast (SINGULAIR) 10 mg tablet Take 10 mg by mouth daily at bedtime.Disp: Rfl: 12/14/2016 at 2200fluticasone (FLONASE) 50 mcg/actuation nasal spray Use 1 [place] in eachnostril twice daily. Disp: Rfl: 12/15/2016 at 0700diltiazem CD (CARDIZEM CD) 180 mg 24 hr capsule Take 180 mg by mouth oncedaily. Disp: Rfl: 12/15/2016 at 1200acetaminophen (TYLENOL ARTHRITIS PAIN) 650 mg CR tablet Take 1,300 mg bymouth at bedtime as needed. Disp: Rfl: 12/14/2016 at 2200albuterol HFA (PROAIR HFA) 90 mcg/actuation inhaler Inhale 2 Puffs asinstructed every 4 hours as needed. Disp: Rfl:ALLERGIESAllergen Reactions- Clindamycin Hives- Macrodantin [Nitrof* Other: See Comments Off-balance- Percocet [Oxycodone* Other: See Comments Nausea- Sulfa (Sulfonamide * Rash, Itching localized rash and itching all over- Zithromax [Azithrom* Rash, Itching localized rash and itching all over- Zenicef [Other] Rash, Itching itching in mouth; localized rash and itching all overCOMPLETE REVIEW OF SYSTEMS:Constitutional: Negative for activity change, chills and fever.HENT: Negative. Negative for congestion, ear pain, rhinorrhea and sorethroat.Eyes: Negative. Negative for pain, discharge and redness.Respiratory: Positive for cough, chest tightness and shortness of breath.Cardiovascular: Negative. Negative for chest pain.Gastrointestinal: Negative. Negative for abdominal pain, diarrhea, nauseaand vomiting.Endocrine: Negative.Genitourinary: Negative. Negative for dysuria, frequency and urgency.Musculoskeletal: Negative. Negative for arthralgias, back pain andmyalgias.Skin: Negative.Neurological: Positive for weakness. Negative for dizziness,light-headedness and headaches.Psychiatric/Beha vioral: Negative.OBJECTIVEPHYSICAL EXAM:Constitutional: She is oriented to person, place, and time. She appearswell-developed and well-nourished.HENT:Head: Normocephalic and atraumatic.Mouth/Throat: Oropharynx is clear and moist.Eyes: Conjunctivae and EOM are normal. Pupils are equal, round, andreactive to light.Neck: Normal range of motion. Neck supple.Cardiovascular: Normal rate, regular rhythm, normal heart sounds andintact distal pulses.Pulmonary/Chest: Effort normal. She has wheezes. She has rales.Abdominal: Soft. Bowel sounds are normal.Musculoskeletal: Normal range of motion.Neurological: She is alert and oriented to person, place, and time.Skin: Skin is warm and dry.Psychiatric: She has a normal mood and affect.Patient Vitals for the past 24 hrs: BP Temp Temp src Pulse Resp QoH34612/16/16 1645 - - - - 16 -12/16/16 1621 - - - 91 16 98 %12/16/16 1517 147/89 36.9 ?C (98.5 ?F) Oral 97 16 -12/16/16 1225 - - - - 20 -12/16/16 1211 - - - 105 18 100 %12/16/16 0801 - - - 110 20 -12/16/16 0747 - - - 99 18 100 %12/16/16 0737 148/81 37.1 ?C (98.8 ?F) Oral 94 18 100 %12/16/16 0426 134/65 36.9 ?C (98.4 ?F) Oral 87 16 97 %12/16/16 0320 - - - 82 18 -12/16/16 0312 - - - 74 18 100 %12/15/16 2357 155/87 36.9 ?C (98.4 ?F) Oral (!) 106 20 95 %12/15/16 2218 - 37.2 ?C (98.9 ?F) Oral (!) 107 20 -12/15/16 2210 - - - (!) 102 20 96 %12/15/16 2107 133/77 - - (!) 94 22 95 %Body mass index is 43.16 kg/(m2).DATA:Diagnostic tests reviewed for today's visit:ReviewedASSESSMENT/P LANMRSA and E coli HCAPButtock woundAcute respiratory failureFailed OP PO abx treatment w doxyWeaknessObesity, Class III, BMI >= 40Malnutrition of moderate degreePLAN:Vancomycin IVVanco T and adjust as neededCeftriaxoneSputum cxSupportive carePulmonary toiletFollowingDiscussed w Dr NugentSIGNATURE: Maged Mcginnis MD PATIENT NAME: Laura StarkDATE: December 16, 2016 : 6:24 PM PAGER/CONTACT #: [phone] Normal [facility] Comp Metabolic Panelon 12-16 Alanine aminotransferase (ALT) 31 U/L Normal 0-45 [facility] Comment on above: Performed By: #### C BCDIF, PT, PTT, CMP, MG1 ####[facility] [address] [place] [address] Albumin 3.9 g/dL Normal 3.5-5.0 [facility] Comment on above: Performed By: #### C BCDIF, PT, PTT, CMP, MG1 ####[facility] [address] [place] [address] Alkaline phosphatase (ALP) 92 U/L Normal 40-150 [facility] Comment on above: Performed By: #### C BCDIF, PT, PTT, CMP, MG1 ####[facility] [address] [place] [address] Anion gap 22 mmol/L High 0-15 [facility] Comment on above: Performed By: #### C BCDIF, PT, PTT, CMP, MG1 ####[facility] [address] [place] [address] Aspartate aminotransferase (AST) 12 U/L Normal 7-40 [facility] Comment on above: Performed By: #### C BCDIF, PT, PTT, CMP, MG1 ####[facility] [address] [place] [address] Bilirubin (total) 0.4 mg/dL Normal 0.0-1.5 [facility] Comment on above: Performed By: #### C BCDIF, PT, PTT, CMP, MG1 ####[facility] [address] [place] [address] Calcium 9.6 mg/dL Normal 8.5-10.5 [facility] Comment on above: Performed By: #### C BCDIF, PT, PTT, CMP, MG1 ####[facility] [address] [place] [address] Chloride 92 mmol/L Low 98-110 [facility] Comment on above: Performed By: #### C BCDIF, PT, PTT, CMP, MG1 ####[facility] [address] [place] [address] CO2 23 mmol/L Normal 23-32 [facility] Comment on above: Performed By: #### C BCDIF, PT, PTT, CMP, MG1 ####[facility] [address] [place] [address] Creatinine 1.11 mg/dL Normal 0.70-1.40 [facility] Comment on above: Performed By: #### C BCDIF, PT, PTT, CMP, MG1 ####[facility] [address] [place] [address] eGFR (non-black) 50 . Normal [facility] Comment on above: Result Comment: eGFR (Estimated GFR) Units of measure: mL/min/1.73 meters squaredeGFR is derived from the reexpressed MDRD Study equation using the following parameters: serum creatinine, age, gender and race. The creatinine assay has been calibrated to be traceable to IDMS.An eGFR <60 mL/min/1.73m2 for >3 months is consistent with chronic kidney disease. Refer to KDOQI guidelines for clinical interpretation.In patients with unstable renal function, e.g. those with acute kidney injury, the eGFR may not accurately reflect actual GFR. Performed By: #### C BCDIF, PT, PTT, CMP, MG1 ####[facility] [address] [place] [address] eGFR (non-black) mL/min/{1.73_m2} Normal [facility] Comment on above: Performed By: #### C BCDIF, PT, PTT, CMP, MG1 ####[facility] [address] [place] [address] Glucose mass conc 172 mg/dL High 65-100 [facility] Comment on above: Performed By: #### C BCDIF, PT, PTT, CMP, MG1 ####[facility] [address] [place] [address] Potassium molar conc 3.3 mmol/L Low 3.5-5.0 [facility] Comment on above: Performed By: #### C BCDIF, PT, PTT, CMP, MG1 ####[facility] [address] [place] [address] Protein 7.1 g/dL Normal 6.0-8.4 [facility] Comment on above: Performed By: #### C BCDIF, PT, PTT, CMP, MG1 ####[facility] [address] [place] [address] Sodium 137 mmol/L Normal 132-148 [facility] Comment on above: Performed By: #### C BCDIF, PT, PTT, CMP, MG1 ####[facility] [address] [place] [address] Urea nitrogen 33 mg/dL High 8-25 [facility] Comment on above: Performed By: #### C BCDIF, PT, PTT, CMP, MG1 ####[facility] [address] [place] [address] HISTORY PHYSICALon HISTORY PHYSICAL HNO ID: [id number] thor: Kiara NugentService: General Internal MedicineAuthor Type: PhysicianType: HANDPFiled: 12/17/2016 5:54 AMNote Text:[facility]- History and PhysicalBOKAUSHALLAURA HOLT MDOB: 1955 AGE: 61 SEX: FMRN: [id number] ACCTNUM: [id number] [facility] [place] [facility] LOCATION: [id number] PHYSICIAN: Kiara Nugent M.D.ADMIT DATE: 12/15/2016CHIEF COMPLAINT: Cough, shortness of breath, fever.HISTORY OF PRESENT ILLNESS: This is a 61-year-old female with history ofasthma, remote PE, DVT, hypertension. The patient was recentlydischarged after Pseudomonas was positive for E. coli and MRSA. Thepatient was home on p.o. toxic along with prednisone tapering dose. Thepatient continued to feel worse and came to the ER for furtherevaluation. The patient states she has been coughing up thick yellowphlegm and short of breath. Denies any nausea, vomiting. When seen inthe ER, her temp was 99.9, pulse ox of 96, heart 108. The patient wassubsequently admitted as inpatient for acute exacerbation of asthma withfailed outpatient therapy. Her lactate was 3.4, came down to 1.8. WBC9.37. CT chest obtained shows some atelectasis, otherwise negative forany acute PE.PAST MEDICAL HISTORY: As mentioned above.PAST SURGICAL HISTORY: Hysterectomy, hernia repair, colonoscopy, , appendicectomy.ALLERGIES: Clindamycin, Macrodantin, Zithromax, Percocet, sulfa.MEDICATIONS: Reviewed.SOCIAL HISTORY: Reformed smoker. No drug abuse.FAMILY HISTORY: Diabetes, hypertension, ischemic heart disease, skincancer, leukemia.REVIEW OF SYSTEMS: As above.PHYSICAL EXAM: This is a middle-aged female, morbidly obese. Tongue ismoist and central. Neck is supple. Lungs: Diminished air entry withrhonchi and wheezing. CVS: S1, S2 muffled. Abdomen: Soft, obese,benign. Extremities: No edema. [place] PINION ADJUSTER: Nonfocal.IMPRESSION: A 61-year-old female admitted with acute exacerbation ofasthma with failure of therapy, history of hypertension, remote PE.PLAN: Admit as inpatient. IV vancomycin and Rocephin based on priorculture results. IV methylprednisolone. Monitor labs. Continue homemedications. Replace potassium. Continue aerosols. Further treatmentwill depend on the clinical course of the patient and input fromInfectious Disease specialist.Kiara Nugent M.D.Internal MedicineYG:[id number]: 12/16/2016 13:13:42T: 12/16/2016 23:07:58Job #: [id number] [facility] HISTORY PHYSICAL HNO ID: [id number] Author: Kiara Nugent Service: General Internal Medicine Author Type: Physician Type: HANDP Filed: 12/16/2016 9:07 AM Note Text: Pt seen and examined, Kiara Nugent MD December 16, 2016 9:02 AM [facility] NURSING PROGon 12-16-2016 NURSING PROG HNO ID: [id number] thor: Barbara Mendieta (Rn) LEVI Cortezervice: (none)Author Type: Registered NurseType: Nursing Progress NoteFiled: 12/16/2016 5:21 PMNote Text: Nursing Progress NotePatient Name: Laura StarkMRN: [id number] Location: [place] [address]/[id number]___ Daily Note:1715 Dr. Abdi called/ not able to get/ left message. Pt.requestingMucinex. Will await call back.This note was completed by: Barbara Cortez RN [facility] NURSING PROG HNO ID: [id number] thor: Barbara Mendieta (Rn) Dana, RNService: (none)Author Type: Registered NurseType: Nursing Progress NoteFiled: 12/16/2016 11:12 AMNote Text: Nursing Progress NotePatient Name: Laura StarkMRN: [id number] Location: [place] [address]/[id number]___ 1100 In room with Kailey wound care nurse, checked pt. buttox region:which presents as moisture associate dermatitis; 6cm length X 0.5cm width.Kailey, stated to f/u with Inter-dry between buttox. There are no pressureulcers on feet, only a callus on R upper foot.This note was completed by: Barbara Cortez RN [facility] NUTRITIONon 12-16-2016 NUTRITION HNO ID: [id number] thor: Lamar ([place]) FerroService: Nutrition TherapyAuthor Type: Registered DietitianType: NutritionFiled: 12/16/2016 9:28 AMNote Text:NUTRITION THERAPY INITIAL ASSESSMENTSERVICE DATE: 12/16/2016SERVICE TIME: 08RECOMMENDED MALNUTRITION DIAGNOSIS: MODERATE PROTEIN-CALORIE MALNUTRITIONIn the context of Acute Illness or Injury based on:Unintentional Weight Loss: >5% over 1 monthInsufficient Energy Intake: <75% for >7 daysNUTRITION CARE PLAN:Problem, Etiology and Signs/Symptoms:Suboptimal oral intake related to decreased appetite as evidenced byweight loss, diet recallIntervention:Continu e Regular DietProvide and encourage nutrient/caloric dense foods to help meet estimatedneeds.Reviewed current labs and physician progress notesMonitor and Evaluation:Goal: Meet >75% of estimated needsDischarge Nutrition Recommendations:Diet: RegularPer HPI: This is a 61-year-old female past medical history of asthma, DVTand PE not currently on any anticoagulation presenting to the ER withcough since October. She has seen pulmonology and was admitted to thespital December 06 and saw infectious disease. Her sputum was positivefor Escherichia coli and MRSA.Present Diet Order: RegularEnteral Access: NoNutritional Intake Prior to Admission: <75% estimated energy needs overthe past 1+ month(s)Reported decreased appetite over the past 4 weeks d/t lots of coughing andsputum causing a soar throat. Reported that the antibiotics are causing ametallic taste and the steroids make her nauseaGI symptoms: nausea, swallowing problems and throat pain from coughingAbdominal Exam: not assessedIs the patient having any pain that is interfering with oral/enteralintake? Yes LOCATION: throat pain from coughingANTHROPOMETRICSHei ght: 157.5 cm (5' 2)Admission Weight: 107 kg (236 lb)Current Weight: 107 kg (236 lb)Body mass index is 43.16 kg/(m2). class 3 obesityWeight has decreased by ~10 kg over 2 months representing 8.5 % weightchange. CLINICALLY SIGNIFICANTUBW 257 lbs; per patient was weighting this at the beginning of OctoberLast Wt102/15/16 : 107 kg (236 lb)04/12/16 : 115.2 kg (254 lb)10/04/15 : 113.4 kg (250 lb)02/23/15 : 116.1 kg (256 lb)11/03/14 : 111.1 kg (245 lb)04/02/13 : 96.6 kg (213 lb)02/15/13 : 96.6 kg (213 lb)05/03/12 : 100.7 kg (222 lb)04/28/12 : 99.3 kg (219 lb)02/16/12 : 111.1 kg (245 lb)Dosing Weight: 107 kgResting Metabolic Rate: 1587Estimated kilocalorie needs: 5974-6757 kilocalories determined by 10-15kcal/kgEstimated protein needs: 54-80 grams determined by 20% of estimatedkilocalorie needs dosing weightEstimated fluid needs: 1109-3978 milliliters based on 1 mL per kcalNUTRITION FOCUSED PHYSICAL EXAM:Micronutrient DeficiencySkin no deficiency identifiedNails no deficiency identifiedScalp/Hair no deficiency identifiedEyes no deficiency identifiedNose no deficiency identifiedOropharynx no deficiency identifiedSubcutaneous Fat LossOrbital No fat lossTriceps No fat lossMid-axillary at the iliac crest No fat lossMuscle Loss Locations:Temporalis No muscle lossPectoralis No muscle lossDeltoids No muscle lossInterosseous No muscle lossLatissimus dorsi, trapezius Unable to determine at this timeQuadriceps No muscle lossGastrocnemius Unable to determine at this timeAscites: NoEdema: Yes Lower extremities Severe 3 - 4Assessment of Functional status: Functional capacity is unrelated tonutrition statusTemperature Max in 24 hours: Temp (24hrs), Av.2 ?C (98.9 ?F), Min:36.9?C (98.4 ?F), Max:37.7 ?C (99.9 ?F) BP 148/81 Pulse 110 Temp 37.1 ?C (98.8 ?F) (Oral) Resp 20 Ht157.5 cm (5' 2) Wt 107 kg (236 lb) SpO2 100% BMI 43.16 kg/r3Zjeeae Labs 12/15/1716GLUC 172* 158*BUN 33* 33*CREAT 1.11 1.12NA 137 136K 3.3* 3.6CHLOR 92* 91*CO2 23 24ALB 3.9 4.2HB 12.9 13.3HCT 41.5 42.7WBC 8.34 9.37MG -- 1.9Potential Signs of Inflammation: hyperglycemia, hyperthermia andtachycardiaALLERGIESAll ergen Reactions- Clindamycin Hives- Macrodantin [Nitrof* Other: See Comments Off-balance- Percocet [Oxycodone* Other: See Comments Nausea- Sulfa (Sulfonamide * Rash, Itching localized rash and itching all over- Zithromax [Azithrom* Rash, Itching localized rash and itching all over- Zenicef [Other] Rash, Itching itching in mouth; localized rash and itching all overCurrent Facility-Administered Medications:HYDROcodone 5 mg - acetaminophen 325 mg tablet (NORCO) 1-2 tablet ORAL q 6H PRNheparin 5,000 Units injection 5,000 Units SUBCUTANEOUS q 12 Hvancomycin 1 g in D5W 200 mL 1 g INTRAVENOUS q 12 HRcefTRIAXone 1 g in sterile water 10 mL (ROCEPHIN) 1 g INTRAVENOUS q 24 HmethylPREDNISolone sod succinate(PF) 40 mg injection (Solu-MEDROL) 40 mgINTRAVENOUS q 8 Hipratropium-albuterol 3 mL nebulizer solution (DUONEB) 3 mL INHALATION QIDdiltiazem CD 180 mg cap(s) (CARDIZEM CD, CARTIA XT) 180 mg ORAL DAILYmagnesium oxide 400 mg tab(s) (MAG-OX) 400 mg ORAL DAILYspironolactone 25 mg tab(s) (ALDACTONE) 25 mg ORAL BIDOmeprazole cpDR 1 capsule 40 mg ORAL DAILYhydroCHLOROthiazide 25 mg tab(s) (HYDRODIURIL, ESIDRIX) 25 mg ORAL DAILYaspirin, enteric coated 325 mg tab(s) (ASPIRIN, ENTERIC COATED) 325 mgORAL DAILYpotassium chloride ER 40 mEq tab(s) (K-DUR, KLOR-CON) 40 mEq ORAL BIDiv contrast (radiology procedure) INTRAVENOUS DIRECTED PRNMNT Billing Type: Initial Assess/15 min 4 unitsSIGNATURE: Lamar Kaplan RD PATIENT NAME: Laura StarkDATE: December 16, 2016 : 9:18 AM [facility] PROGRESSon 12-16-2016 PROGRESS HNO ID: [id number] thor: Rhonda Hickman (Pharmacist)Service: PharmacyAuthor Type: PharmacistType: Progress NotesFiled: 12/16/2016 9:56 AMNote Text:PHARMACY VANCOMYCIN DOSING NOTEPatient Name: Laura Stark Admission Date:12/15/2016Date of Consult: 12/16/2016 Time of Consult: 9:54 AMIndication: PneumoniaGoal Range: 15-20RECOMMENDATIONS/PLAN: Pharmacy consulted for vancomycin dosing for Laura Stark, a 61 yearold, female who is being treated with vancomycin1. Patient is currently ordered Vancomycin 1.5 g IV q12h. Today is day 2of therapy. (1st dose in ER)2. No vancomycin level has been drawn for this dosing regimen.3. The present dose of vancomycin is the recommended dosage for thispatient at this time. Continue therapy as prescribed.4. The next vancomycin level has been ordered for 10-3 (Completed)We will follow patient renal function, vancomycin levels and doses withyou during the course of therapy. Additional recommendations will appearin follow up notes. If you have any questions, please contact pharmacy [phone].Age: 61 year oldAllergies:ALLERGIESAlle rgen Reactions- Clindamycin Hives- Macrodantin [Nitrof* Other: See Comments Off-balance- Percocet [Oxycodone* Other: See Comments Nausea- Sulfa (Sulfonamide * Rash, Itching localized rash and itching all over- Zithromax [Azithrom* Rash, Itching localized rash and itching all over- Zenicef [Other] Rash, Itching itching in mouth; localized rash and itching all overLast 3 Encounter Wt Readings: Date: Wt: 12/15/2016 107 kg (236 lb) 04/12/2016 115.2 kg (254 lb) 10/04/2015 113.4 kg (250 lb)Last 1 Encounter Ht Readings: Date: Ht: 12/15/2016 157.5 cm (5' 2)CrCl: 60.5 ml/minTemp (24hrs), Av.2 ?C (98.9 ?F), Min:36.9 ?C (98.4 ?F), Max:37.7 ?C(99.9 ?F) - Current Temp: 37.1 ?C (98.8 ?F)LabsBUN (mg/dL)Date Value12/16/2016 33 (H)12/15/2016 33 (H)02/15/2013 20 Creatinine (mg/dL)Date Value12/16/2016 1.1111/02/2016 1.1201 1.11 WBC (k/uL)Date Value12/16/2016 8.3411 9. 6.70 Vancomycin Levels: No results found for: Tiesha Hickman, Pharmacist Normal [facility] APTTon 12-15-2016 aPTT s Low 23.0-32.4 [facility] Comment on above: Result Comment: Unfr actionated Heparin Therapeutic Ranges:Standard Heparin Nomogram: 53 to 78 seconds (anti-Xa level of 0.3 to 0.7 U/ml)Low Dose/ACS Nomogram: 49 to 67 seconds (anti-Xa level of 0.2 to 0.5 U/ml)Stroke Treatment Nomogram: 49 to 67 seconds (anti-Xa level of 0.2 to 0.5 U/ml)Note: The APTT therapeutic range has been determined for the current lot of laboratory APTT reagent in use throughout the [facility]. Performed By: #### C BCDIF, PT, PTT, CMP, MG1 ####[place] [address] Blood Cultureon 12-15-2016 Bacteria culture Sp. Request/Comment: - The blood culture bottles are underfilled. Adding volume lower or higher than the 8 to 10 mL per bottle, which is the manufacturers recommended volume, may adversely affect the recovery and/or detection of organisms. 2.7MLCulture Result - No growth 5 days [facility] Comment on above: Performed By: #### T NT ####[place] [address] Bacteria culture Sp. Request/Comment: - The blood culture bottles are underfilled. Adding volume lower or higher than the 8 to 10 mL per bottle, which is the manufacturers recommended volume, may adversely affect the recovery and/or detection of organisms. 8.3MLCulture Result - No growth 5 days [facility] Comment on above: Performed By: #### T NT ####[place] [address] CBC and Differentialon 12-15 Abs Baso <0.03 Normal <0.11 [facility] Comment on above: Performed By: #### C BCDIF, PT, PTT, CMP, MG1 ####[place] [address] Abs [place] 0.66 k/uL Normal <0.87 [facility] Comment on above: Performed By: #### C BCDIF, PT, PTT, CMP, MG1 ####[facility] [address] [place] [address] Abs Neut 8.02 k/uL High 1.45-7.50 [facility] Comment on above: Performed By: #### C BCDIF, PT, PTT, CMP, MG1 ####[facility] [address] [place] [address] Basophils/100 WBC Auto (Bld) 0.2 % Normal [facility] Comment on above: Performed By: #### C BCDIF, PT, PTT, CMP, MG1 ####[place] [address] Eosinophils 10*3/uL Normal <0.46 [facility] Comment on above: Performed By: #### C BCDIF, PT, PTT, CMP, MG1 ####[place] [address] Eosinophils/100 leukocytes 0.0 % Normal [facility] Comment on above: Performed By: #### C BCDIF, PT, PTT, CMP, MG1 ####[place] [address] Erythrocyte distribution width Auto Ratio (RBC) 17.0 % High 11.5-15.0 [facility] Comment on above: Performed By: #### C BCDIF, PT, PTT, CMP, MG1 ####[place] [address] Erythrocytes (RBC) 4.97 10*6/uL Normal 3.90-5.20 [facility] Comment on above: Performed By: #### C BCDIF, PT, PTT, CMP, MG1 ####[place] [address] Hematocrit (HCT) 42.7 % Normal 36.0-46.0 [facility] Comment on above: Performed By: #### C BCDIF, PT, PTT, CMP, MG1 ####[place] [address] Hemoglobin mass conc (Bld) 13.3 g/dL Normal 11.5-15.5 [facility] Comment on above: Performed By: #### C BCDIF, PT, PTT, CMP, MG1 ####[place] [address] Lymphocytes 0.67 10*3/uL Low 1.00-4.00 [facility] Comment on above: Performed By: #### C BCDIF, PT, PTT, CMP, MG1 ####[place] [address] Lymphocytes/100 leukocytes 7.2 % Normal [facility] Comment on above: Performed By: #### C BCDIF, PT, PTT, CMP, MG1 ####[place] [address] MCH 26.8 pG Normal 26.0-34.0 [facility] Comment on above: Performed By: #### C BCDIF, PT, PTT, CMP, MG1 ####[facility] [address] [place] [address] MCHC mass conc (RBC) 31.1 g/dL Normal 30.5-36.0 [facility] Comment on above: Performed By: #### C BCDIF, PT, PTT, CMP, MG1 ####[place] [address] MCV 85.9 fL Normal 80.0-100.0 [facility] Comment on above: Performed By: #### C BCDIF, PT, PTT, CMP, MG1 ####[place] [address] Monocytes/100 leukocytes 7.0 % Normal [facility] Comment on above: Performed By: #### C BCDIF, PT, PTT, CMP, MG1 ####[place] [address] Neutrophils/100 WBC Auto (Bld) 85.6 % Normal [facility] Comment on above: Performed By: #### C BCDIF, PT, PTT, CMP, MG1 ####[place] [address] Platelet mean volume (PMV) 10.0 fL Normal 9.0-12.7 [facility] Comment on above: Performed By: #### C BCDIF, PT, PTT, CMP, MG1 ####[facility] [address] [place] [address] Platelets 312 10*3/uL Normal 150-400 [facility] Comment on above: Performed By: #### C BCDIF, PT, PTT, CMP, MG1 ####[facility] [address] [place] [address] WBC (Leukocytes) 9.37 10*3/uL Normal 3.70-11.00 [facility] Comment on above: Performed By: #### C BCDIF, PT, PTT, CMP, MG1 ####[place] [address] CK, Total and CKMBon 017 CKMB CK MB % not reported with CK <100 U/L. Normal 0.0-4.0 [facility] Comment on above: Performed By: #### C KCKMB ####[facility] [address] [place] [address] Creatine kinase (CK) 62 U/L Normal 30-220 [facility] Comment on above: Performed By: #### C KCKMB ####[place] [address] MB 2.3 ng/mL Normal 0.0-8.8 [facility] Comment on above: Performed By: #### C KCKMB ####[facility] [address] [place] [address] CT CHEST WO IVCONon 12-16-[address] CHEST WO IVCON * * *Final Report* * *DATE OF EXAM: Dec 15 2016 7:58PM [facility] - CT CHEST WO IVCON / REASON: Cough--Coughing * * * * Physician Interpretation * * * * EXAMINATION: CHEST CT WITHOUT CONTRAST: 70-8-23YGPXRKGL HISTORY: 61-year-old female with cough. MRSA. Escherichia coli in sputum.Request was made for exam with intravenous contrast with PE protocol. Technologist states that IV contrast was unable to be administered. IV infiltrated after multiple IV attempts.Technique: Spiral CT acquisition of the chest from the thoracic inlet to the upper abdomen without contrast. Sagittal and coronal reconstructions performed.M: [id number]_4CT Dose-Length Product: 316 mGy*cmCT Dose Reduction Employed: Automated exposure control (AEC)COMPARISON:CT abdomen without IV contrast: 03-22-12.No comparison CT chest.RESULTS:Limitations: None.Lines, tubes, and devices: None.Lung parenchyma and pleura: Right shoulder prosthesis noted. Degenerative changes of spine, without focal skeletal abnormality.Thoracic inlet, heart, and mediastinum: Vascular including coronary arterial calcifications noted. No aneurysm of thoracic aorta. Heart not enlarged. No significant pericardial fluid. Ovoid area of fat attenuation interposed between right and left atria suggestive of lipomatous hypertrophy of the interatrial septum: 4.6 x 2.8 x 5.9 cm. No enlarged lymph nodes noted on this unenhanced CT.Bones/soft tissues: Degenerative changes of spine. Right shoulder prosthesis noted. No focal skeletal abnormality.Upper abdomen: Artifact related to external device slightly degrades upper abdominal images. No abnormality within upper abdomen.IMPRESSION:1. Mild atelectasis within bilateral lungs. Otherwise, no acute abnormality.2. Ovoid area of fat attenuation interposed between right and left atria consistent with lipomatous hypertrophy of interatrial septum.Breakdown Work[facility] Transcribe Date/Time: Dec 15 2016 8:21PDictated by : THANG PARKER MDThis examination was interpreted and the report reviewed and electronically signed by: THANG PARKER MD on Dec 15 2016 8:32PM [id number] Normal [facility] Comp Metabolic Panelon 12-15 Alanine aminotransferase (ALT) 32 U/L Normal 0-45 [facility] Comment on above: Performed By: #### C BCDIF, PT, PTT, CMP, MG1 ####[facility] [address] [phone] Albumin 4.2 g/dL Normal 3.5-5.0 [facility] Comment on above: Performed By: #### C BCDIF, PT, PTT, CMP, MG1 ####[facility] [address] [phone] Alkaline phosphatase (ALP) 98 U/L Normal 40-150 [facility] Comment on above: Performed By: #### C BCDIF, PT, PTT, CMP, MG1 ####[facility] [address] [place] [address] Anion gap 21 mmol/L High 0-15 [facility] Comment on above: Performed By: #### C BCDIF, PT, PTT, CMP, MG1 ####[facility] [address] [place] [address] Aspartate aminotransferase (AST) 13 U/L Normal 7-40 [facility] Comment on above: Performed By: #### C BCDIF, PT, PTT, CMP, MG1 ####[facility] [address] [place] [address] Bilirubin (total) 0.6 mg/dL Normal 0.0-1.5 [facility] Comment on above: Performed By: #### C BCDIF, PT, PTT, CMP, MG1 ####[facility] [address] [place] [address] Calcium 10.2 mg/dL Normal 8.5-10.5 [facility] Comment on above: Performed By: #### C BCDIF, PT, PTT, CMP, MG1 ####[facility] [address] [place] [address] Chloride 91 mmol/L Low 98-110 [facility] Comment on above: Performed By: #### C BCDIF, PT, PTT, CMP, MG1 ####[facility] [address] [place] [address] CO2 24 mmol/L Normal 23-32 [facility] Comment on above: Performed By: #### C BCDIF, PT, PTT, CMP, MG1 ####[facility] [address] [place] [address] Creatinine 1.12 mg/dL Normal 0.70-1.40 [facility] Comment on above: Performed By: #### C BCDIF, PT, PTT, CMP, MG1 ####[facility] [address] [place] [address] eGFR (non-black) 49 . Normal [facility] Comment on above: Result Comment: eGFR (Estimated GFR) Units of measure: mL/min/1.73 meters squaredeGFR is derived from the reexpressed MDRD Study equation using the following parameters: serum creatinine, age, gender and race. The creatinine assay has been calibrated to be traceable to IDMS.An eGFR <60 mL/min/1.73m2 for >3 months is consistent with chronic kidney disease. Refer to KDOQI guidelines for clinical interpretation.In patients with unstable renal function, e.g. those with acute kidney injury, the eGFR may not accurately reflect actual GFR. Performed By: #### C BCDIF, PT, PTT, CMP, MG1 ####[facility] [address] [place] [address] eGFR (non-black) 60 mL/min/{1.73_m2} Normal [facility] Comment on above: Performed By: #### C BCDIF, PT, PTT, CMP, MG1 ####[place] [address] Glucose mass conc 158 mg/dL High 65-100 [facility] Comment on above: Performed By: #### C BCDIF, PT, PTT, CMP, MG1 ####[facility] [address] [place] [address] Potassium molar conc 3.6 mmol/L Normal 3.5-5.0 [facility] Comment on above: Performed By: #### C BCDIF, PT, PTT, CMP, MG1 ####[place] [address] Protein 7.5 g/dL Normal 6.0-8.4 [facility] Comment on above: Performed By: #### C BCDIF, PT, PTT, CMP, MG1 ####[place] [address] Sodium 136 mmol/L Normal 132-148 [facility] Comment on above: Performed By: #### C BCDIF, PT, PTT, CMP, MG1 ####[place] [address] Urea nitrogen 33 mg/dL High 8-25 [facility] Comment on above: Performed By: #### C BCDIF, PT, PTT, CMP, MG1 ####[facility] [address] [place] [address] ED NOTEon 12-15-2016 ED NOTE HNO ID: [id number] Author: Reyna RivasRn) Emeterio RN Service: (none) Author Type: Registered Nurse Type: ED Notes Filed: 12/15/2016 9:54 PM Note Text: Calling to ask nursing supervisor metal cans for bed change due to precautions. [facility] ED NOTE HNO ID: [id number] Author: Reyna RivasRn) Emeterio, RN Service: (none) Author Type: Registered Nurse Type: ED Notes Filed: 12/15/2016 9:15 PM Note Text: Up to marisol castillo PA updated pt on plan of care. [facility] ED NOTE HNO ID: [id number] Author: Reyna RivasRn) Emeterio, RN Service: (none) Author Type: Registered Nurse Type: ED Notes Filed: 12/15/2016 8:06 PM Note Text: Dr. Vicente at bs to speak with patient. He is aware that her IV infiltrated in PE study. IV removed. [facility] ED NOTE HNO ID: [id number] Author: Reyna RivasRn) Emeterio, RN Service: (none) Author Type: Registered Nurse Type: ED Notes Filed: 12/15/2016 7:27 PM Note Text: CT staff at bs and 18g won't flush. GERMAIN Mendoza at to attempt new placement of IV. [facility] ED NOTE HNO ID: [id number] Author: Kendal RivasRn) Bryan Dinero RN Service: (none) Author Type: Registered Nurse Type: ED Notes Filed: 12/15/2016 6:59 PM Note Text: catscan iv blew in left ac [facility] ED PROV NOTEon 12-15-2016 ED PROV NOTE HNO ID: [id number] thor: Nixon Vicente, MDService: Emergency MedicineAuthor Type: PhysicianType: ED Provider NotesFiled: 12/15/2016 9:50 PMNote Text:ED Provider NotePatient Name: Laura StarkMRN: [id number] DATE: 12/15/16HistoryPatient presents with:CoughShortness of BreathFeverHPIThis is a 61-year-old female past medical history of asthma, DVT and PEnot currently on any anticoagulation presenting to the ER with cough sinceSeptember. She has seen pulmonology and was admitted to the hospitalOctober 23 and saw infectious disease. Her sputum was positive forEscherichia coli and MRSA. She was given IV Vanco and Rocephin. She wassupposed to get a PICC line but instead was sent home on doxycycline ofwhich she is currently on. She does home nebulizers and has been onsteroids forever. She quit smoking 27 years ago. She has chest painbut only with coughing. She does feel short of breath. She does have ahoarseness to her voice. She's not having lower extremity swelling pain.She has been running fevers and the symptoms have been worse over the lastfew days. She is to follow-up with Dr. Cardenas in infectious disease.PAST MEDICAL HISTORYDiagnosis Date- DVT (deep venous thrombosis) ([facility]) 1995 Rt lower leg- PE (pulmonary embolism)- Unspecified asthma(493.90)- Unspecified essential hypertensionPAST SURGICAL HISTORYProcedure Laterality Date- APPENDECTOMY- DELIVERY ONLY , low cervical- COLONOSCOP W/ OR W/O [facility] SPEC 01-09-13- DEBRIDE SKIN AND SUBQ TISSU 02-10-12- FILTER PLACEMENT (VENA CAVA) 01-15-13- FNA WITH IMAGING 05/26/11 U/S FNA left thyroid nodule- FREEING BOWEL ADHESION,ENTEROLYSIS 03-24-12- INSER NON-TUNNEL CVC >= 5 YR 03-24-12- LAP INC CY RECUR COMP 01-18-13- PAST SURGICAL HISTORY OF 2003 right ankle surgery-fusion- PAST SURGICAL HISTORY OF 2009 right shoulder partial replacement- REPAIR INCIS HERNIA W MESH 01-31-12- REPAIR INCISIONAL HERNIA,LALO 01-31-12- TOTAL ABDOM HYSTERECTOMY 1996 Hysterectomy, RONN- TRANSCATH RETRIEVAL,PERCUT 02-21-13 FILTER REMOVALFAMILY HISTORYProblem Relation Age of Onset- Cancer Father skin- Cancer Maternal Grandmother colon- Cancer Paternal Grandfather leukemia- Diabetes Mother- Hypertension Mother- Ischemic Heart Disease Mother- Hypertension Maternal Grandfather- Ischemic Heart Disease Maternal Grandfather- Hypertension Father- Diabetes Maternal GrandfatherSocial HistorySocial History Main Topics- Smoking status: Former Smoker Packs/day: 1.00 Years: 20.00 Types: Cigarettes Quit date: 10/29/1995- Smokeless tobacco: Not on file- Alcohol use No- Drug use: No- Sexual activity: Not on fileALLERGIESAllergen Reactions- Clindamycin Hives- Macrodantin [Nitrof* Other: See Comments Off-balance- Percocet [Oxycodone* Other: See Comments Nausea- Sulfa (Sulfonamide * Rash, Itching localized rash and itching all over- Zithromax [Azithrom* Rash, Itching localized rash and itching all over- Zenicef [Other] Rash, Itching itching in mouth; localized rash and itching all overReview of SystemsConstitutional: Negative for activity change, chills and fever.HENT: Negative. Negative for congestion, ear pain, rhinorrhea and sorethroat.Eyes: Negative. Negative for pain, discharge and redness.Respiratory: Positive for cough, chest tightness and shortness of breath.Cardiovascular: Negative. Negative for chest pain.Gastrointestinal: Negative. Negative for abdominal pain, diarrhea, nauseaand vomiting.Endocrine: Negative.Genitourinary: Negative. Negative for dysuria, frequency and urgency.Musculoskeletal: Negative. Negative for arthralgias, back pain andmyalgias.Skin: Negative.Neurological: Positive for weakness. Negative for dizziness,light-headedness and headaches.Psychiatric/Beha vioral: Negative.Physical ExamBP 158/70 Pulse 90 Temp (Src) 99.9 (Oral) Resp 18 Ht 5' 2 (1.58m) Wt 236 lb (107.0kg) SpO2 96% BMI 43.15 kg/(m2).Physical ExamConstitutional: She is oriented to person, place, and time. She appearswell-developed and well-nourished.HENT:Head: Normocephalic and atraumatic.Mouth/Throat: Oropharynx is clear and moist.Eyes: Conjunctivae and EOM are normal. Pupils are equal, round, andreactive to light.Neck: Normal range of motion. Neck supple.Cardiovascular: Normal rate, regular rhythm, normal heart sounds andintact distal pulses.Pulmonary/Chest: Effort normal. She has wheezes. She has rales.Abdominal: Soft. Bowel sounds are normal.Musculoskeletal: Normal range of motion.Neurological: She is alert and oriented to person, place, and time.Skin: Skin is warm and dry.Psychiatric: She has a normal mood and affect.Diagnostic TestingED Labs Ordered and ReviewedCBC + DIFF - Abnormal; Notable for the following: Result Value Ref Range RDW-CV 17.0 (*) 11.5 - 15.0 % Abs Neut (ANC) 8.02 (*) 1.45 - 7.50 k/uL Abs Lymph 0.67 (*) 1.00 - 4.00 k/uL All other components within normal limitsCOMP METABOLIC PANEL - Abnormal; Notable for the following: Glucose 158 (*) 65 - 100 mg/dL BUN 33 (*) 8 - 25 mg/dL Chloride 91 (*) 98 - 110 mmol/L Anion Gap 21 (*) 0 - 15 mmol/L All other components within normal limitsACTIVATED PTT - Abnormal; Notable for the following: APTT <20.0 (*) 23.0 - 32.4 sec All other components within normal limitsCRITICAL CARE PROFILE VENOUS - Abnormal; Notable for the following: pO2, Venous 25.9 (*) 35.0 - 45.0 mmHg Lactate 3.4 (*) 0.5 - 2.2 mmol/L Oxyhemoglobin, Venous 41.2 (*) 60.0 - 85.0 % pCO2, Venous 40.8 (*) 42.0 - 55.0 mmHg pH, Venous 7.428 (*) 7.320 - 7.420 Potassium, Whole Blood 3.5 (*) 3.5 - 5.0 mmol/L All other components within normal limitsTROPONIN TCK TOTAL AND CK-MBMAGNESIUM BLDPROTHROMBIN TIME/PTSEPSIS LACTATE (CABRERA)BLD CULTURE X1 DRAWBLD CULTURE X1 DRAWProceduresMedical Decision Making / ED CourseThe medical record is reviewedThe nursing notes are reviewedThe vitals are reviewed. Patient's temp is 99.9 blood pressure 158/70heart rate 108 respirations 20 pulse ox 98% in room airComorbid conditions include: History of asthma, DVT and PE no longer onanticoagulation.Hx, exam and clinical data are most suggestive of 61-year-old that's hadessentially cough and shortness of breath for about a month now. Washospitalized on the to 07 December where she had a positive MRSA andEscherichia coli sputum culture. She was treated with IV vancomycin andRocephin and sent home on Doxy. This is the third antibiotic she's beenon as an outpatient. She states she's been feeling weak today Sunil tempis 99.9. White counts 9.37. Glucose 158 BUN is 33 troponin is negative.Normal CK and magnesium. Coags are normal. She has a history of PE andalthough I had a low suspicion of PE I ordered the CT of her chest to lookfor atypical pneumonias abscess and also the chance there could be a PE asshe does have a history and she is not on anticoagulation. She has alow-grade temp and her heart rate was 108 so there was still was asuspicion. Blood cultures are also pending. CT shows mild atelectasiswithin bilateral lungs no acute abnormality and there is an attenuationinterposed between the right left atria consistent with lipoma hypertrophyof intra-atrial septum. Patient was supposed to follow up with Dr. Boyce infectious disease. I paged infectious disease on-call Dr. Mcginnis. Iwmarcela admit the patient for generalized weakness shortness of breath andfailing outpatient treatment.ED CourseEncounter Diagnosis ICD-10-CM1. General weakness R53.12. Shortness of breath R06.02PlanThe Patient was ADMITTED TO: Regular nursing floor.Condition at time of disposition: stableSIGNATURE: [place])02/15/167Attending NoteI have personally performed a face to face assessment of the patient andhave reviewed the PA/SHIFT MANAGER note. My starkey findings include:Assessment/Plan are this is a 61-year-old female who presents withshortness of breath, difficulty breathing. Patient has had a chroniccourse of cough with productive sputum. She was on multiple rounds ofantibiotics and ultimately had a bronchitis that showed MRSA that wassusceptible to doxycycline. She has completed a course of doxycycline andstill has the cough and sputum as well as the other symptoms would includelow-grade temperatures. Her gage designer requested that she seesinfectious disease specialist at this hospital and patient presents here.The case was discussed with him and patient will be otherwise admitted forfurther evaluation. She does have a mild elevated lactate. CT was donethat was unremarkable. The CT was attempted to be done as a PE studyhowever the contrast infiltrated.Other additions or changes: NoneSignature: Nixon Vicente, MDDate: 12/15/2016Time: 9:48 PMMatthew Ottoniel Vicente MD12/15/16 2[facility] HOSPon 12-15-2016 HOSP Patient:Bowen Stark MMRN: Height:5' 2(1.575 m)Weight:231 lb 0.7 oz (104.8 kg)Outpatient Medications as of 12/27/16:predniSONE (DELTASONE) 20 mg tabletdoxycycline hyclate (VIBRAMYCIN) 100 mg capsuleguaiFENesin (MUCINEX) 1,200 mg Ah62aolylwhdlab-uthohcqylb (ADVAIR DISKUS) 500-50 mcg/dose dsdvipratropium-albuterol (DUONEB) 0.5 mg-3 mg(2.5 mg base)/3 mL nebualbuterol (PROVENTIL) 2.5 mg /3 mL (0.083 %) nebulizer solutionspironolactone (ALDACTONE) 25 mg tabletaspirin, enteric coated (ASPIRIN, ENTERIC COATED) 325 mg EC tablethydroCHLOROthiazide (HYDRODIURIL, ESIDRIX) 25 mg tabletmagnesium oxide (MAG-OX) 400 mg tabletmelatonin 3 mgOmeprazole (PRILOSEC) 40 mg capsulemontelukast (SINGULAIR) 10 mg tabletfluticasone (FLONASE) 50 mcg/actuation nasal spraydiltiazem CD (CARDIZEM CD) 180 mg 24 hr capsuleacetaminophen (TYLENOL ARTHRITIS PAIN) 650 mg CR tabletalbuterol HFA (PROAIR HFA) 90 mcg/actuation inhalerAdmission/Clinic Administered Medications as of 12/27/16:morphine 1-2 mg injectionmethylPREDNISolon e sod succinate(PF) 40 mg injection (Solu-MEDROL)psyllium Husk 1.56 g cap(s)lactobacillus rhamnosus 10 billion cell (CULTURELLE) capsuleflecainide 100 mg tab(s) (TAMBOCOR)diltiazem CD 360 mg cap(s) (CARDIZEM CD, CARTIA XT)piperacillin-tazobactam 3.375 g in dextrose (iso-osmotic) 50 mL (ZOSYN)insulin lispro 7 Units injection (rapid acting) (HumaLOG)insulin NPH human 14 Units injection (intermediate acting) (NovoLIN N, HumuLINN)apixaban 5 mg tab(s) (ELIQUIS)aspirin, enteric coated 81 mg tab(s) (ASPIRIN, ENTERIC COATED)hydrocortisone 25 mg suppository (HEMORRHOIDAL HC)albuterol 2.5 mg /3 mL (0.083 %) 2.5 mg (PROVENTIL)albuterol 2.5 mg /3 mL (0.083 %) 2.5 mg (PROVENTIL)pantoprazole DR 40 mg tab(s) (PROTONIX)guaiFENesin 1,200 mg ER tab(s) (MUCINEX)budesonide 0.5 mg/2 mL 0.5 mg (PULMICORT)metHIMazole 5 mg tab(s) (TAPAZOLE)ondansetron (PF) 4 mg injection (ZOFRAN)0.9% NaCl 10 mL0.9% NaCl 20 mLcodeine-guaiFENesin 5-10 mL oral liquid (ROBITUSSIN AC)dextrose 40 % 15 g (INSTA-GLUCOSE)glucagon 1 mg injection (GLUCAGEN)dextrose 50% in water 25 mL syringeHYDROcodone 5 mg - acetaminophen 325 mg tablet (NORCO)montelukast 10 mg tab(s) (SINGULAIR)magnesium oxide 400 mg tab(s) (MAG-OX)spironolactone 25 mg tab(s) (ALDACTONE)hydroCHLOROthia zide 25 mg tab(s) (HYDRODIURIL, ESIDRIX)iv contrast (radiology procedure)Problem List:Multinodular goiter [E04.2]Weakness [R53.1]Obesity, Class III, BMI >= 40 (morbid obesity) E66.01 [E66.01]Malnutrition of moderate degree (HCC) [E44.0]Asthma [J45.909]Hyperthyroidism [E05.90]Paroxysmal atrial fibrillation (HCC) [I48.0]CKD (chronic kidney disease) stage 3, GFR 30-59 ml/min [N18.3]Hypertension [I10]GERD (gastroesophageal reflux disease) [K21.9]Allergies:Clindamyc inMacrodantin [Nitrofurantoin Macrocrystalline]Percocet [Oxycodone-Acetaminophen]S ulfa (Sulfonamide Antibiotics)Zithromax [Azithromycin]zenicef [Other]Date Verified: 12/26/16Lab ValuesLab Value Units Date High LowPOTA* 3.4 mmol/L 12/27/2016 5.0 3.5HEMA* 37.7 % 12/27/2016 46.0 36.0Progress Notes (REI CABRERA CAT SCAN):[place], CT, CT 12/15/2016 7:59 PM Sign at close encounter Radiology Service Progress NotePATIENT NAME: Lauar StarkMRN: [id number] OF SERVICE: December 15, 2016TIME: 6:35 PMPATIENT IDENTITY VERIFICATION COMPLETED USING TWO (2) METHODS: Patientconfirmed name verbally and ID band matches..PATIENT GENDER DATA: Female. status: : No Breastfeedingstatus: NO.PATIENT RELEVANT IMPLANT DATA REVIEWED: YesCONTRAST INDUCED NEPHROPATHY RISK FACTORS: Patient age > 60 yearsCREATININE:Creatinine Date Value Ref Range Vaqhip4512/15/2016 1.12 0.70 - 1.40 mg/dL Final02/15/2013 1.11 0.70 - 1.40 mg/dL Final eGFR-All Other RacesDate Value Ref Range Ggmkvu3912/15/2016 49 . FinalComment:eGFR (Estimated GFR) Units of measure: mL/min/1.73 meters squaredeGFR is derived from the reexpressed MDRD Study equation using the followingparameters: serum creatinine, age, gender and race. The creatinine assay hasbeen calibrated to be traceable to IDMS.An eGFR <60 mL/min/1.73m2 for >3 months is consistent with chronic kidneydisease. Refer to KDOQI guidelines for clinical interpretation.In patients with unstable renal function, e.g. those with acute kidney injury,the eGFR may not accurately reflect actual GFR. eGFR- AmericanDate Value Ref Range Iaodyx6312/15/2016 60 Final P.O.C.T. RESULTS: N/A December 15, 2016REFERENCE RANGE:Reference range (age 0-9 years) 0.30 - 1.00 mg/dLReference range (age 10-14 years) 0.30 - 1.20 mg/dLReference range (age 15-18 years) 0.40 - 1.30 mg/dLReference range (age 19-99 years ) 0.70-1.40 mg/dLCALCULATED GFR:RADIOLOGIST NOTIFIED?: NoALLERGIES: Reviewed and unchangedCONTRAST ALLERGY: NO.PERIPHERAL IV ACCESS: Inpatient: see LDA documentationRADIOLOGY DEPARTMENT: CHEST W/O CONTRAST-IV INFILTRATED DURING SCAN AFTERMULTIPLE IV ATTEMPTS, RN IN ER AWARE AND DR LESLIEIGNED BY: Cary Covarrubias ALDecchandler regional [facility] 2016 6:35 PMProgress Notes ():Nixon Vicente MD, MD 12/15/2016 9:50 PM SignedED Provider NotePatient Name: Laura StarkMRN: [id number] DATE: 12/15/16HistoryPatient presents with:CoughShortness of BreathFeverHPAmerico is a 61-year-old female past medical history of asthma, DVT and PE notcurrently on any anticoagulation presenting to the ER with cough sinceSept. She has seen pulmonology and was admitted to the hospital December 06and saw infectious disease. Her sputum was positive for Escherichia coli andMRSA. She was given IV Vanco and Rocephin. She was supposed to get a PICC linebut instead was sent home on doxycycline of which she is currently on. She doeshome nebulizers and has been on steroids forever. She quit smoking 27 yearsago. She has chest pain but only with coughing. She does feel short of breath.She does have a hoarseness to her voice. She's not having lower extremityswelling pain. She has been running fevers and the symptoms have been worseover the last few days. She is to follow-up with Dr. Cardenas in infectiousdisease.PAST MEDICAL HISTORYDiagnosis Date- DVT (deep venous thrombosis) (HCC) 1995 Rt lower leg- PE (pulmonary embolism)- Unspecified asthma(493.90)- Unspecified essential hypertensionPAST SURGICAL HISTORYProcedure Laterality Date- APPENDECTOMY- DELIVERY ONLY , low cervical- COLONOSCOP W/ OR W/O [facility] SPEC 01-09-13- DEBRIDE SKIN AND SUBQ TISSU 02-10-12- FILTER PLACEMENT (VENA CAVA) 01-15-13- FNA WITH IMAGING 05/26/11 U/S FNA left thyroid nodule- FREEING BOWEL ADHESION,ENTEROLYSIS 03-24-12- INSER NON-TUNNEL CVC >= 5 YR 03-24-12- LAP INC CY RECUR COMP 01-18-13- PAST SURGICAL HISTORY OF 2003 right ankle surgery-fusion- PAST SURGICAL HISTORY OF 2009 right shoulder partial replacement- REPAIR INCIS HERNIA W MESH 01-31-12- REPAIR INCISIONAL HERNIA,LALO 01-31-12- TOTAL ABDOM HYSTERECTOMY 1996 Hysterectomy, RONN- TRANSCATH RETRIEVAL,PERCUT 02-21-13 FILTER REMOVALFAMILY HISTORYProblem Relation Age of Onset- Cancer Father skin- Cancer Maternal Grandmother colon- Cancer Paternal Grandfather leukemia- Diabetes Mother- Hypertension Mother- Ischemic Heart Disease Mother- Hypertension Maternal Grandfather- Ischemic Heart Disease Maternal Grandfather- Hypertension Father- Diabetes Maternal GrandfatherSocial HistorySocial History Main Topics- Smoking status: Former Smoker Packs/day: 1.00 Years: 20.00 Types: Cigarettes Quit date: 10/29/1995- Smokeless tobacco: Not on file- Alcohol use No- Drug use: No- Sexual activity: Not on fileALLERGIESAllergen Reactions- Clindamycin Hives- Macrodantin [Nitrof* Other: See Comments Off-balance- Percocet [Oxycodone* Other: See Comments Nausea- Sulfa (Sulfonamide * Rash, Itching localized rash and itching all over- Zithromax [Azithrom* Rash, Itching localized rash and itching all over- Zenicef [Other] Rash, Itching itching in mouth; localized rash and itching all overReview of SystemsConstitutional: Negative for activity change, chills and fever.HENT: Negative. Negative for congestion, ear pain, rhinorrhea and sore throat.Eyes: Negative. Negative for pain, discharge and redness.Respiratory: Positive for cough, chest tightness and shortness of breath.Cardiovascular: Negative. Negative for chest pain.Gastrointestinal: Negative. Negative for abdominal pain, diarrhea, nausea andvomiting.Endocrine: Negative.Genitourinary: Negative. Negative for dysuria, frequency and urgency.Musculoskeletal: Negative. Negative for arthralgias, back pain and myalgias.Skin: Negative.Neurological: Positive for weakness. Negative for dizziness, light-headednessand headaches.Psychiatric/Beha vioral: Negative.Physical ExamBP 158/70 Pulse 90 Temp (Src) 99.9 (Oral) Resp 18 Ht 5' 2 (1.58m) Wt236 lb (107.0kg) SpO2 96% BMI 43.15 kg/(m2).Physical ExamConstitutional: She is oriented to person, place, and time. She appearswell-developed and well-nourished.HENT:Head: Normocephalic and atraumatic.Mouth/Throat: Oropharynx is clear and moist.Eyes: Conjunctivae and EOM are normal. Pupils are equal, round, and reactive tolight.Neck: Normal range of motion. Neck supple.Cardiovascular: Normal rate, regular rhythm, normal heart sounds and intactdistal pulses.Pulmonary/Chest: Effort normal. She has wheezes. She has rales.Abdominal: Soft. Bowel sounds are normal.Musculoskeletal: Normal range of motion.Neurological: She is alert and oriented to person, place, and time.Skin: Skin is warm and dry.Psychiatric: She has a normal mood and affect.Diagnostic TestingED Labs Ordered and ReviewedCBC + DIFF - Abnormal; Notable for the following: Result Value Ref Range RDW-CV 17.0 (*) 11.5 - 15.0 % Abs Neut (ANC) 8.02 (*) 1.45 - 7.50 k/uL Abs Lymph 0.67 (*) 1.00 - 4.00 k/uL All other components within normal limitsCOMP METABOLIC PANEL - Abnormal; Notable for the following: Glucose 158 (*) 65 - 100 mg/dL BUN 33 (*) 8 - 25 mg/dL Chloride 91 (*) 98 - 110 mmol/L Anion Gap 21 (*) 0 - 15 mmol/L All other components within normal limitsACTIVATED PTT - Abnormal; Notable for the following: APTT <20.0 (*) 23.0 - 32.4 sec All other components within normal limitsCRITICAL CARE PROFILE VENOUS - Abnormal; Notable for the following: pO2, Venous 25.9 (*) 35.0 - 45.0 mmHg Lactate 3.4 (*) 0.5 - 2.2 mmol/L Oxyhemoglobin, Venous 41.2 (*) 60.0 - 85.0 % pCO2, Venous 40.8 (*) 42.0 - 55.0 mmHg pH, Venous 7.428 (*) 7.320 - 7.420 Potassium, Whole Blood 3.5 (*) 3.5 - 5.0 mmol/L All other components within normal limitsTROPONIN TCK TOTAL AND CK-MBMAGNESIUM BLDPROTHROMBIN TIME/PTSEPSIS LACTATE (CABRERA)BLD CULTURE X1 DRAWBLD CULTURE X1 DRAWProceduresMedical Decision Making / ED CourseThe medical record is reviewedThe nursing notes are reviewedThe vitals are reviewed. Patient's temp is 99.9 blood pressure 158/70 heartrate 108 respirations 20 pulse ox 98% in room airComorbid conditions include: History of asthma, DVT and PE no longer onanticoagulation.Hx, exam and clinical data are most suggestive of 61-year-old that's hadessentially cough and shortness of breath for about a month now. Washospitalized on the to 07 December where she had a positive MRSA andEscherichia coli sputum culture. She was treated with IV vancomycin andRocephin and sent home on Doxy. This is the third antibiotic she's been on asan outpatient. She states she's been feeling weak today Sunil temp is 99.9.White counts 9.37. Glucose 158 BUN is 33 troponin is negative. Normal CK andmagnesium. Coags are normal. She has a history of PE and although I had a lowsuspicion of PE I ordered the CT of her chest to look for atypical pneumoniasabscess and also the chance there could be a PE as she does have a history andshe is not on anticoagulation. She has a low-grade temp and her heart rate [id number] so there was still was a suspicion. Blood cultures are also pending. CTshows mild atelectasis within bilateral lungs no acute abnormality and there isan attenuation interposed between the right left atria consistent with lipomahypertrophy of intra-atrial septum. Patient was supposed to follow up with and infectious disease. I paged infectious disease on-call Dr. Mcginnis. Yves admit the patient for generalized weakness shortness of breath and failingoutpatient treatment.ED CourseEncounter Diagnosis ICD-10-CM1. General weakness R53.12. Shortness of breath R06.02PlanThe Patient was ADMITTED TO: Regular nursing floor.Condition at time of disposition: stableSIGNATURE: Marisol Frias, PA-CHeather (Neda) Christina02/15/16 2127Attending NoteI have personally performed a face to face assessment of the patient and havereviewed the PA/SHIFT MANAGER note. My starkey findings include:Assessment/Plan are this is a 61-year-old female who presents with shortness ofbreath, difficulty breathing. Patient has had a chronic course of cough withproductive sputum. She was on multiple rounds of antibiotics and ultimately hada bronchitis that showed MRSA that was susceptible to doxycycline. She hascompleted a course of doxycycline and still has the cough and sputum as well asthe other symptoms would include low-grade temperatures. Her pulmonologistrequested that she sees infectious disease specialist at this hospital andpatient presents here. The case was discussed with him and patient will beotherwise admitted for further evaluation. She does have a mild elevatedlactate. CT was done that was unremarkable. The CT was attempted to be done asa PE study however the contrast infiltrated.Other additions or changes: NoneSignature: Nixon Vicente, MDDate: 12/15/2016Time: 9:48 PMMatthew Ottoniel Vicente MD12/15/16 2150Previous Tim ABDULLAHI PHARMACIST 12/15/2016 5:51 PM SignedMEDICATION HISTORYPatient Name:Chuy StarkMRN: [id number]: 1955Source of history:Patient: Reliability of source: Appears reliable, clearlyidentified: Medication name, Medication dose, Medication route and MedicationfrequencyMedicat ion Nonadherence Identified: No barriers notedThe above information represents the best possible medication history: YesAdditional comments:? Medications removed:? Pyridium? Magnesium hydroxide liquid? Medications adjusted:? Advair Diskus - sig? Albuterol nebulizer - sig? ProAir - sig? Aspirin - formulation and sig? Hydrochlorothiazide - strength and sig? Melatonin - strength and sig? Prilosec - strength and sig? Singulair - sig? Medications added:? Flonase? Cardizem? Tylenol arthritis? Magnesium oxide tablets? Allergy list modifications:? Added localized rash and itching all over to sulfa, Zithromax, and Zenicefallergies? Added nausea to Percocet intolerance? Added off-balance to Macrobid intoleranceAllergies: ALLERGIESAllergen Reactions- Clindamycin Hives- Macrodantin [Nitrof* Other: See Comments Off-balance- Percocet [Oxycodone* Other: See Comments Nausea- Sulfa (Sulfonamide * Rash, Itching localized rash and itching all over- Zithromax [Azithrom* Rash, Itching localized rash and itching all over- Zenicef [Other] Rash, Itching itching in mouth; localized rash and itching all overPreferred Pharmacy: [facility] Medications:Prior to Admission medications as of 12/15/16 1746Medication Sig Last Dose Takingfluticasone-salmeter ol (ADVAIR DISKUS) 500-50 mcg/dose dsdv Inhale 1 Puff asinstructed twice daily. Unknown at Unknown time Yesipratropium-albuterol (DUONEB) 0.5 mg-3 mg(2.5 mg base)/3 mL nebu Inhale 3 mL asinstructed every 4 hours as needed. Unknown at Unknown time Yesalbuterol (PROVENTIL) 2.5 mg /3 mL (0.083 %) nebulizer solution Use 2.5 mg vianebulizer every 4 hours as needed. Unknown at Unknown time Yesspironolactone (ALDACTONE) 25 mg tablet Take 25 mg by mouth twice daily. Unknownat Unknown time Yesaspirin, enteric coated (ASPIRIN, ENTERIC COATED) 325 mg EC tablet Take 325 mgby mouth once daily. Unknown at Unknown time YeshydroCHLOROthiazide (HYDRODIURIL, ESIDRIX) 25 mg tablet Take 25 mg by mouth oncedaily. Unknown at Unknown time Yesmagnesium oxide (MAG-OX) 400 mg tablet Take 400 mg by mouth once daily. Unknownat Unknown time Yesmelatonin 3 mg Take 3 mg by mouth daily at bedtime. Unknown at Unknown time YesOmeprazole (PRILOSEC) 40 mg capsule Take 40 mg by mouth once daily. Unknown atUnknown time Yesmontelukast (SINGULAIR) 10 mg tablet Take 10 mg by mouth daily at bedtime.Unknown at Unknown time Yesfluticasone (FLONASE) 50 mcg/actuation nasal spray Use 1 [place] in each nostriltwice daily. Unknown at Unknown time Yesdiltiazem CD (CARDIZEM CD) 180 mg 24 hr capsule Take 180 mg by mouth once daily.Unknown at Unknown time Yesacetaminophen (TYLENOL ARTHRITIS PAIN) 650 mg CR tablet Take 1,300 mg by mouthat bedtime as needed. Unknown at Unknown time Yesalbuterol HFA (PROAIR HFA) 90 mcg/actuation inhaler Inhale 2 Puffs as instructedevery 4 hours as needed. ERIN ReeseFormerly [facility], [facility]2016 5:48 PMSshahida Dinero, RN, RN 12/15/2016 6:59 PM Signed catscan iv blew in left acReyna Storm RN, RN 12/15/2016 7:[address] staff at bs and 18g won't flush. GERMAIN Mendoza at bs to attempt new placement ofIV.Reyna Storm RN, RN 12/15/2016 8:[address] Vicente at bs to speak with patient. He is aware that her IV infiltrated inPE study. IV removed.Reyna Storm RN, RN 12/15/2016 9:15 PM Signed Up to marisol castillo PA updated pt on plan of care.Reyna Storm RN, RN 12/15/2016 9:54 PM Signed Calling to ask nursing supervisor metal cans for bed change due to precautions.Kiara Nugent MD 12/17/2016 5:54 AM [facility]igned[facility]- History and PhysicalBOLAURA BAKER MDOB: 1955 AGE: 61 SEX: FMRN: [id number] ACCTNUM: [id number] [facility] [place] [facility] LOCATION: [id number] PHYSICIAN: Kiara Nugent M.D.ADMIT DATE: 12/15/2016CHIEF COMPLAINT: Cough, shortness of breath, fever.HISTORY OF PRESENT ILLNESS: This is a 61-year-old female with history ofasthma, remote PE, DVT, hypertension. The patient was recently dischargedafter Pseudomonas was positive for E. coli and MRSA. The patient was home onp.o. toxic along with prednisone tapering dose. The patient continued to feelworse and came to the ER for further evaluation. The patient states she hasbeen coughing up thick yellow phlegm and short of breath. Denies any nausea,vomiting. When seen in the ER, her temp was 99.9, pulse ox of 96, heart 108.The patient was subsequently admitted as inpatient for acute exacerbation ofasthma with failed outpatient therapy. Her lactate was 3.4, came down to 1.8.WBC 9.37. CT chest obtained shows some atelectasis, otherwise negative for anyacute PE.PAST MEDICAL HISTORY: As mentioned above.PAST SURGICAL HISTORY: Hysterectomy, hernia repair, colonoscopy, C- section,appendicectomy.ALL ERGIES: Clindamycin, Macrodantin, Zithromax, Percocet, sulfa.MEDICATIONS: Reviewed.SOCIAL HISTORY: Reformed smoker. No drug abuse.FAMILY HISTORY: Diabetes, hypertension, ischemic heart disease, skin cancer,leukemia.REVIEW OF SYSTEMS: As above.PHYSICAL EXAM: This is a middle-aged female, morbidly obese. Tongue is moistand central. Neck is supple. Lungs: Diminished air entry with rhonchi andwheezing. CVS: S1, S2 muffled. Abdomen: Soft, obese, benign. Extremities:No edema. CANNON PINION ADJUSTER: Nonfocal.IMPRESSION: A 61-year-old female admitted with acute exacerbation of asthmawith failure of therapy, history of hypertension, remote PE.PLAN: Admit as inpatient. IV vancomycin and Rocephin based on prior cultureresults. IV methylprednisolone. Monitor labs. Continue home medications.Replace potassium. Continue aerosols. Further treatment will depend on theclinical course of the patient and input from Infectious Disease specialist.Kiara Nugent M.D.Internal MedicineYG:[id number]: 12/16/2016 13:13:42T: 12/16/2016 23:07:58Job #: [id number] Susan Nugent MD 12/16/2016 9:07 AM AddendumPt seen and examined,Kiara Nugent MDNovember 2016 9:[address] 12/16/2016 9:28 AM SignedNUTRITION THERAPY INITIAL ASSESSMENTSERVICE DATE: 12/16/2016SERVICE TIME: 0855RECOMMENDED MALNUTRITION DIAGNOSIS: MODERATE PROTEIN-CALORIE MALNUTRITIONIn the context of Acute Illness or Injury based on:Unintentional Weight Loss: >5% over 1 monthInsufficient Energy Intake: <75% for >7 daysNUTRITION CARE PLAN:Problem, Etiology and Signs/Symptoms:Suboptimal oral intake related to decreased appetite as evidenced by weightloss, diet recallIntervention:Continu e Regular DietProvide and encourage nutrient/caloric dense foods to help meet estimated needs.Reviewed current labs and physician progress notesMonitor and Evaluation:Goal: Meet >75% of estimated needsDischarge Nutrition Recommendations:Diet: RegularPer HPI: This is a 61-year-old female past medical history of asthma, DVT and PEnot currently on any anticoagulation presenting to the ER with cough sinceSeptember. She has seen pulmonology and was admitted to the hospital December 06and saw infectious disease. Her sputum was positive for Escherichia coli andMRSA.Present Diet Order: RegularEnteral Access: NoNutritional Intake Prior to Admission: <75% estimated energy needs over the past1+ month(s)Reported decreased appetite over the past 4 weeks d/t lots of coughing andsputum causing a soar throat. Reported that the antibiotics are causing ametallic taste and the steroids make her nauseaGI symptoms: nausea, swallowing problems and throat pain from coughingAbdominal Exam: not assessedIs the patient having any pain that is interfering with oral/enteral intake? YesLOCATION: throat pain from coughingANTHROPOMETRICSHei ght: 157.5 cm (5' 2)Admission Weight: 107 kg (236 lb)Current Weight: 107 kg (236 lb)Body mass index is 43.16 kg/(m2). class 3 obesityWeight has decreased by ~10 kg over 2 months representing 8.5 % weight change.CLINICALLY SIGNIFICANTUBW 257 lbs; per patient was weighting this at the beginning of Wt102/15/16 : 107 kg (236 lb)04/12/16 : 115.2 kg (254 lb)10/04/15 : 113.4 kg (250 lb)02/23/15 : 116.1 kg (256 lb)11/03/14 : 111.1 kg (245 lb)04/02/13 : 96.6 kg (213 lb)02/15/13 : 96.6 kg (213 lb)05/03/12 : 100.7 kg (222 lb)04/28/12 : 99.3 kg (219 lb)02/16/12 : 111.1 kg (245 lb)Dosing Weight: 107 kgResting Metabolic Rate: 1587Estimated kilocalorie needs: 1207-1253 kilocalories determined by 10-15 kcal/kgEstimated protein needs: 54-80 grams determined by 20% of estimated kilocalorieneeds dosing weightEstimated fluid needs: 5247-0355 milliliters based on 1 mL per kcalNUTRITION FOCUSED PHYSICAL EXAM:Micronutrient DeficiencySkin no deficiency identifiedNails no deficiency identifiedScalp/Hair no deficiency identifiedEyes no deficiency identifiedNose no deficiency identifiedOropharynx no deficiency identifiedSubcutaneous Fat LossOrbital No fat lossTriceps No fat lossMid-axillary at the iliac crest No fat lossMuscle Loss Locations:Temporalis No muscle lossPectoralis No muscle lossDeltoids No muscle lossInterosseous No muscle lossLatissimus dorsi, trapezius Unable to determine at this timeQuadriceps No muscle lossGastrocnemius Unable to determine at this timeAscites: NoEdema: Yes Lower extremities Severe 3 - 4Assessment of Functional status: Functional capacity is unrelated to nutritionstatusTemperature Max in 24 hours: Temp (24hrs), Av.2 ?C (98.9 ?F), Min:36.9 ?C(98.4 ?F), Max:37.7 ?C (99.9 ?F) BP 148/81 Pulse 110 Temp 37.1 ?C (98.8 ?F) (Oral) Resp 20 Ht 157.5 cm(5' 2) Wt 107 kg (236 lb) SpO2 100% BMI 43.16 kg/v7Uvdxiq Labs 12/15/1716GLUC 172* 158*BUN 33* 33*CREAT 1.11 1.12NA 137 136K 3.3* 3.6CHLOR 92* 91*CO2 23 24ALB 3.9 4.2HB 12.9 13.3HCT 41.5 42.7WBC 8.34 9.37MG -- 1.9Potential Signs of Inflammation: hyperglycemia, hyperthermia and tachycardiaALLERGIESAllerg en Reactions- Clindamycin Hives- Macrodantin [Nitrof* Other: See Comments Off-balance- Percocet [Oxycodone* Other: See Comments Nausea- Sulfa (Sulfonamide * Rash, Itching localized rash and itching all over- Zithromax [Azithrom* Rash, Itching localized rash and itching all over- Zenicef [Other] Rash, Itching itching in mouth; localized rash and itching all overCurrent Facility-Administered Medications:HYDROcodone 5 mg - acetaminophen 325 mg tablet (NORCO) 1-2 tablet ORAL q 6 H PRNheparin 5,000 Units injection 5,000 Units SUBCUTANEOUS q 12 Hvancomycin 1 g in D5W 200 mL 1 g INTRAVENOUS q 12 HRcefTRIAXone 1 g in sterile water 10 mL (ROCEPHIN) 1 g INTRAVENOUS q 24 HmethylPREDNISolone sod succinate(PF) 40 mg injection (Solu-MEDROL) 40 mgINTRAVENOUS q 8 Hipratropium-albuterol 3 mL nebulizer solution (DUONEB) 3 mL INHALATION QIDdiltiazem CD 180 mg cap(s) (CARDIZEM CD, CARTIA XT) 180 mg ORAL DAILYmagnesium oxide 400 mg tab(s) (MAG-OX) 400 mg ORAL DAILYspironolactone 25 mg tab(s) (ALDACTONE) 25 mg ORAL BIDOmeprazole cpDR 1 capsule 40 mg ORAL DAILYhydroCHLOROthiazide 25 mg tab(s) (HYDRODIURIL, ESIDRIX) 25 mg ORAL DAILYaspirin, enteric coated 325 mg tab(s) (ASPIRIN, ENTERIC COATED) 325 mg ORALDAILYpotassium chloride ER 40 mEq tab(s) (K-DUR, KLOR-CON) 40 mEq ORAL BIDiv contrast (radiology procedure) INTRAVENOUS DIRECTED PRNMNT Billing Type: Initial Assess/15 min 4 unitsSIGNATURE: Lamar Kaplan RD PATIENT NAME: Laura StarkDATE: December 16, 2016 : 9:18 Skyler Hickman Pharmacist 12/16/2016 9:56 AM SignedPHARMACY VANCOMYCIN DOSING NOTEPatient Name: Laura Stark Admission Date: 12/15/2016Date of Consult: 12/16/2016 Time of Consult: 9:54 AMIndication: PneumoniaGoal Range: 15-20RECOMMENDATIONS/PLAN: Pharmacy consulted for vancomycin dosing for Laura Stark, a 61 year old,female who is being treated with vancomycin1. Patient is currently ordered Vancomycin 1.5 g IV q12h. Today is day 2 oftherapy. (1st dose in ER)2. No vancomycin level has been drawn for this dosing regimen.3. The present dose of vancomycin is the recommended dosage for this patient atthis time. Continue therapy as prescribed.4. The next vancomycin level has been ordered for 10-3 (Completed)We will follow patient renal function, vancomycin levels and doses with youduring the course of therapy. Additional recommendations will appear in followup notes. If you have any questions, please contact pharmacy at [phone].Age: 61 year oldAllergies:ALLERGIESAlle rgen Reactions- Clindamycin Hives- Macrodantin [Nitrof* Other: See Comments Off-balance- Percocet [Oxycodone* Other: See Comments Nausea- Sulfa (Sulfonamide * Rash, Itching localized rash and itching all over- Zithromax [Azithrom* Rash, Itching localized rash and itching all over- Zenicef [Other] Rash, Itching itching in mouth; localized rash and itching all overLast 3 Encounter Wt Readings: Date: Wt: 12/15/2016 107 kg (236 lb) 04/12/2016 115.2 kg (254 lb) 10/04/2015 113.4 kg (250 lb)Last 1 Encounter Ht Readings: Date: Ht: 12/15/2016 157.5 cm (5' 2)CrCl: 60.5 ml/minTemp (24hrs), Av.2 ?C (98.9 ?F), Min:36.9 ?C (98.4 ?F), Max:37.7 ?C (99.9?F) - Current Temp: 37.1 ?C (98.8 ?F)LabsBUN (mg/dL)Date Value12/16/2016 33 (H)12/15/2016 33 (H)02/15/2013 20 Creatinine (mg/dL)Date Value12/16/2016 1.1111 1.1201 1.11 WBC (k/uL)Date Value12/16/2016 8.3411 9.3701 6.70 Vancomycin Levels: No results found for: VANCORADoria Niedenthal, PharmacistAdilia Wilson, RN, RN 12/16/2016 12:55 PM SignedWound Care Consult TeamMRN: [id number] NAME: Laura Stark is a 61 year old female with the admittingdiagnosis of general weakness.ALLERGIESAllergen Reactions- Clindamycin Hives- Macrodantin [Nitrof* Other: See Comments Off-balance- Percocet [Oxycodone* Other: See Comments Nausea- Sulfa (Sulfonamide * Rash, Itching localized rash and itching all over- Zithromax [Azithrom* Rash, Itching localized rash and itching all over- Zenicef [Other] Rash, Itching itching in mouth; localized rash and itching all overREASON FOR CONSULT: Consult visit today for ? Pressure injury (no assessmentcompleted and ? Skin other to buttocks no assessment documented.WCCT agrees with Pressure Ulcer documentation by Physician: Not ApplicableWCCT agrees with Pressure Ulcer documentation by Nurse: Not Applicable Add Pressure Ulcer Sites: (Site, Stage, Status (POA vs Acquired)1)2)3)4)Assessmen t Pt awake and alert. Reports history of recent hospital stay a weekago and was told had MRSA to wound between buttocks. Has been treating at homewith regular cleansing/drying and folded gauze to wick moisture. Patient alsoreports + e-coli and MSRA to sputum (? Cross-contamination?) On exam there is anarrow linear wound in the crease between her buttocks (6 x 0.5cm) with paleyellow base, no erythema, no odor noted. Patient has been on PO doxycyclinesince discharge from hospital. Bilateral feet with chronic changes noted,blanching purple hue to plantar forefoot and along the lateral aspect. Multipledry calluses over the bony prominences. No pressure injury noted to either heel.ActiveRecommendations : Continue to keep buttocks skin crease clean and dry. Can triala piece of Interdry AG between buttocks secured at top with paper tape and heldin place with her underwear. When she toilets she can move the Interdry and thentuck back in place. If this is not a workable solution, recommend skin barriercream (Desitin or Pinxav) applied after every use of toilet.Maintain all appropriate Nursing Pressure Ulcer Prevention Interventions asneeded per Mele Risk Assessment.My findings and recommendations for wound care [facility].Wound Care Consult Team recommendations discussed with: Bedside RN present forassessment and recommendations. who will obtain necessary orders from MD,Resident or LIP.Follow Up:Wound Care Consult will follow as needed.Units of Service (15 min per unit): 15 minElectronically Signed By: Adilia Wilson RN CWOCN from the Wound Care ConsultTeamPAGER:DATE: December 16, 2016TIME: 12:40 PMThank you for including me in the care of this patient and please feel free tore-consult me if necessary.Barbaar Cortez, RN, RN 12/16/2016 11:12 AM Signed Nursing Progress NotePatient Name: Laura StarkMRN: [id number] Location: [facility]/PY-[id number]___ 1100 In room with Kailey wound care nurse, checked pt. buttox region: whichpresents as moisture associate dermatitis; 6cm length X 0.5cm width. Kailey,stated to f/u with Inter-dry between buttox. There are no pressure ulcers onfeet, only a callus on R upper foot.This note was completed by: Josephine Tavarez LSW, RN 12/16/2016 3:21 PM SignedCARE MANAGEMENT: ASSESSMENT AND DISCHARGE PLANSERVICE DATE: 12/16/2016SERVICE TIME: 3:10 [facility] CARE PHYSICIAN:Moreno Donnelly MD - confirmed with patient. [id number] STATUS: InpatientPOTENTIAL DISCHARGE PLANSHomeHome CareOutpatient TherapyTo Be DeterminedPatient/Represen tative Stated Goals: Pt would like to feel better, as she hasbeen feeling sick for some time, and return home to her family.Needs Prior to Discharge: To Be DeterminedHealth Insurance: Medical [place] ServicesLiving Arrangement: HomeLives With: Spouse and Daughter Daughter is 20yrs old and has multiple handicapsper pt.Financial Resources: RetiredPrimary Contact:Extended Emergency Contact InformationPrimary Emergency Contact: LincolnAyaandoreenAddress: [address] [place], [place] [id number] [place] [address] Jnocuf Rxsjaufs: SpouseSupportive: YesOther Important Patient Contacts: NoneCAREGIVER ASSESSMENT:Caregiver is ready, willing and able to meet the patient's needs as recommendedby the inter-professional team? No Caregiver NeededPatient's transition needs and plan for meeting these needs: Anticipate pt toreturn home with no skilled services and her supportive .Does the patient have an acute stroke diagnosis, or has the patient had a strokeduring this admission? NoADVANCE DIRECTIVES:Does Patient Have Advance Directives? Yes: Living Will , copy is not in chartDoes Patient Have Concerns About Advance Directives? NoPRIOR TO ADMISSION:Baseline Mental Status: Alert AND Oriented, Person, Place , Time and SituationFunctional Status: [facility] Patient Currently Receive Any Community Services or Home Care? NoneEquipment Prior to Admission: Aerosols/Intermittent positivebreathing/Respirat ory TreatmentsHEALTH:Health Issues Impacting Discharge Plan: Asthma, hx DVT/PE, HTNHealth Literacy Issues: NoPSYCHOSOCIAL:Is the Patient Psychosocially Complex? NoFamily/Patient Understanding of Illness/Diagnosis: Pt is understanding of hercurrent illness.Medication Adherence:Do you forget to take your medications? I do not forget to take my medicationHave you ever stopped taking medications because you felt worse? None of thetimeHave you ever taken less of your medication than what was prescribed byyour doctor? None of the timeIn the past 3 months, have you had issues obtaining one or more of yourmedications? None of the timeAre you interested in bedside delivery of your medications? No Pt uses [facility] for maintenance medications and [facility] in [place] for short termmeds.Food Concerns:In the Last Month, Have You had Trouble Getting Food? No trouble getting foodDuring the Last Month, Have You Worried Whether Your Food Would Run Out BeforeYou Had Enough Money to Buy More? NoPsychosocial Needs: NoneUTILIZATION:Last Admission Date: noneIs this Within the Past 30 days? NoHas the Patient Been in a Jail Facility in the Past 30 days? N/AFREEDOM OF CHOICE EXPLAINED:N/AHAALONSOOFF COMMUNICATION:Pt not yet ready for d/c.Sw reviewed EMR and met with pt bedside to introduce self and role. Pt reportsthat she is from home with her and her 20yr old disabled dtr. Ptreports that she is independent, uses no DME other than a nebulizer as needed,no current skilled services. Pt reports no needs at d/c. Anticipate pt toreturn home with no skilled needs. Family to provide d/c transportation.CM will continue to follow for any d/c planning needs.SIGNATURE: Yue Estrada MSW, SKID RO[address] [employer] PATIENT NAME: Laura StarkDATE: December 16, 2016 : 3:10 PM PAGER/CONTACT #: [phone] Anam Cortez RN, RN 12/16/2016 5:21 PM Signed Nursing Progress NotePatient Name: Laura StarkMRN: [id number] [facility]/EN-[id number]___ Daily Note:1715 Dr. Abdi called/ not able to get/ left message. Pt.requesting Mucinex.Will await call back.This note was completed by: Barbara Cortez, Ashok Mcginnis MD, MD 12/17/2016 3:38 PM SignedID CONSULTPRIMARY CARE PHYSICIAN: Moreno Donnelly MDSUBJECTIVECHIEF COMPLAINT: CoughShortness of BreathFeverHPI: This is a 61 year old female w past medical history of asthma, DVT and PEnot currently on any anticoagulation presenting to the ER with cough sinceSeptember. She has seen pulmonology and was admitted to the hospital December 06and saw infectious disease. Her sputum was positive for Escherichia coli andMRSA. She was given IV Vanco and Rocephin. She was supposed to get a PICC linebut instead was sent home on doxycycline of which she is currently on. She doeshome nebulizers and has been on steroids forever. She quit smoking 27 yearsago. She has chest pain but only with coughing. She does feel short of breath.She does have a hoarseness to her voice. She's not having lower extremityswelling pain. She has been running fevers and the symptoms have been worseover the last few days. She is to follow-up with Dr. Cardenas in infectiousdisease but got sick before the appt and decided to come to the ED. [place] patient.?PAST MEDICAL HISTORYDiagnosis Date- DVT (deep venous thrombosis) (HCC) 1995 Rt lower leg- PE (pulmonary embolism)- Unspecified asthma(493.90)- Unspecified essential hypertensionPAST SURGICAL HISTORYProcedure Laterality Date- APPENDECTOMY- DELIVERY ONLY , low cervical- COLONOSCOP W/ OR W/O [facility] SPEC 01-09-13- DEBRIDE SKIN AND SUBQ TISSU 02-10-12- FILTER PLACEMENT (VENA CAVA) 01-15-13- FNA WITH IMAGING 05/26/11 U/S FNA left thyroid nodule- FREEING BOWEL ADHESION,ENTEROLYSIS 03-24-12- INSER NON-TUNNEL CVC >= 5 YR 03-24-12- LAP INC CY RECUR COMP 01-18-13- PAST SURGICAL HISTORY OF 2003 right ankle surgery-fusion- PAST SURGICAL HISTORY OF 2009 right shoulder partial replacement- REPAIR INCIS HERNIA W MESH 01-31-12- REPAIR INCISIONAL HERNIA,LALO 01-31-12- TOTAL ABDOM HYSTERECTOMY 1996 Hysterectomy, RONN- TRANSCATH RETRIEVAL,PERCUT 02-21-13 FILTER REMOVALFAMILY HISTORYProblem Relation Age of Onset- Cancer Father skin- Hypertension Father- Cancer Maternal Grandmother colon- Cancer Paternal Grandfather leukemia- Diabetes Mother- Hypertension Mother- Ischemic Heart Disease Mother- Hypertension Maternal Grandfather- Ischemic Heart Disease Maternal Grandfather- Diabetes Maternal GrandfatherSocial HistorySubstance Use Topics- Smoking status: Former Smoker Packs/day: 1.00 Years: 20.00 Types: Cigarettes Quit date: 10/29/1995- Smokeless tobacco: Not on file- Alcohol use NoPrescriptions Prior to Admission:predniSONE (DELTASONE) 20 mg tablet Take 20 mg by mouth once daily. Taperstarting 12/16/16 20mg x3 days, 10mg x3days, 5mg x3 days. Then discontinuedDisp: Rfl:doxycycline hyclate (VIBRAMYCIN) 100 mg capsule Take 100 mg by mouth twicedaily. 12/17/16 AM last dose Disp: Rfl: 12/15/2016 at 0700guaiFENesin (MUCINEX) 1,200 mg Ta12 Take by mouth twice daily. Disp: Rfl:12/15/2016 at 0700fluticasone-salmeterol (ADVAIR DISKUS) 500-50 mcg/dose dsdv Inhale 1 Puff asinstructed twice daily. Disp: Rfl: 12/15/2016 at 0700ipratropium-albuterol (DUONEB) 0.5 mg-3 mg(2.5 mg base)/3 mL nebu Inhale 3 mL asinstructed every 4 hours as needed. Disp: Rfl: Unknown at Unknown timealbuterol (PROVENTIL) 2.5 mg /3 mL (0.083 %) nebulizer solution Use 2.5 mg vianebulizer every 4 hours as needed. Disp: Rfl: 12/15/2016spironolactone (ALDACTONE) 25 mg tablet Take 25 mg by mouth twice daily. Disp:Rfl: 12/15/2016 at 1200aspirin, enteric coated (ASPIRIN, ENTERIC COATED) 325 mg EC tablet Take 325 mgby mouth once daily. Disp: Rfl: 12/15/2016 at 0700hydroCHLOROthiazide (HYDRODIURIL, ESIDRIX) 25 mg tablet Take 25 mg by mouth oncedaily. Disp: Rfl: 12/15/2016 at 1200magnesium oxide (MAG-OX) 400 mg tablet Take 400 mg by mouth once daily. Disp:Rfl: 12/14/2016 at 2200melatonin 3 mg Take 3 mg by mouth daily at bedtime. Disp: Rfl: 12/14/2016 [id number] (PRILOSEC) 40 mg capsule Take 40 mg by mouth once daily. Disp: Rfl:12/15/2016 at 0700montelukast (SINGULAIR) 10 mg tablet Take 10 mg by mouth daily at bedtime. Disp:Rfl: 12/14/2016 at 2200fluticasone (FLONASE) 50 mcg/actuation nasal spray Use 1 [place] in each nostriltwice daily. Disp: Rfl: 12/15/2016 at 0700diltiazem CD (CARDIZEM CD) 180 mg 24 hr capsule Take 180 mg by mouth once daily.Disp: Rfl: 12/15/2016 at 1200acetaminophen (TYLENOL ARTHRITIS PAIN) 650 mg CR tablet Take 1,300 mg by mouthat bedtime as needed. Disp: Rfl: 12/14/2016 at 2200albuterol HFA (PROAIR HFA) 90 mcg/actuation inhaler Inhale 2 Puffs as instructedevery 4 hours as needed. Disp: Rfl:ALLERGIESAllergen Reactions- Clindamycin Hives- Macrodantin [Nitrof* Other: See Comments Off-balance- Percocet [Oxycodone* Other: See Comments Nausea- Sulfa (Sulfonamide * Rash, Itching localized rash and itching all over- Zithromax [Azithrom* Rash, Itching localized rash and itching all over- Zenicef [Other] Rash, Itching itching in mouth; localized rash and itching all overCOMPLETE REVIEW OF SYSTEMS:Constitutional: Negative for activity change, chills and fever.HENT: Negative. Negative for congestion, ear pain, rhinorrhea and sore throat.Eyes: Negative. Negative for pain, discharge and redness.Respiratory: Positive for cough, chest tightness and shortness of breath.Cardiovascular: Negative. Negative for chest pain.Gastrointestinal: Negative. Negative for abdominal pain, diarrhea, nausea andvomiting.Endocrine: Negative.Genitourinary: Negative. Negative for dysuria, frequency and urgency.Musculoskeletal: Negative. Negative for arthralgias, back pain and myalgias.Skin: Negative.Neurological: Positive for weakness. Negative for dizziness, light-headednessand headaches.Psychiatric/Beha vioral: Negative.OBJECTIVEPHYSICAL EXAM:Constitutional: She is oriented to person, place, and time. She appearswell-developed and well-nourished.HENT:Head: Normocephalic and atraumatic.Mouth/Throat: Oropharynx is clear and moist.Eyes: Conjunctivae and EOM are normal. Pupils are equal, round, and reactive tolight.Neck: Normal range of motion. Neck supple.Cardiovascular: Normal rate, regular rhythm, normal heart sounds and intactdistal pulses.Pulmonary/Chest: Effort normal. She has wheezes. She has rales.Abdominal: Soft. Bowel sounds are normal.Musculoskeletal: Normal range of motion.Neurological: She is alert and oriented to person, place, and time.Skin: Skin is warm and dry.Psychiatric: She has a normal mood and affect.Patient Vitals for the past 24 hrs: BP Temp Temp src Pulse Resp [id number]/16 1645 - - - - 16 -12/16/16 1621 - - - 91 16 98 %12/16/16 1517 147/89 36.9 ?C (98.5 ?F) Oral 97 16 -12/16/16 1225 - - - - 20 -12/16/16 1211 - - - 105 18 100 %12/16/16 0801 - - - 110 20 -12/16/16 0747 - - - 99 18 100 %12/16/16 0737 148/81 37.1 ?C (98.8 ?F) Oral 94 18 100 %12/16/16 0426 134/65 36.9 ?C (98.4 ?F) Oral 87 16 97 %12/16/16 0320 - - - 82 18 -12/16/16 0312 - - - 74 18 100 %12/15/16 2357 155/87 36.9 ?C (98.4 ?F) Oral (!) 106 20 95 %12/15/16 2218 - 37.2 ?C (98.9 ?F) Oral (!) 107 20 -12/15/16 2210 - - - (!) 102 20 96 %12/15/16 2107 133/77 - - (!) 94 22 95 %Body mass index is 43.16 kg/(m2).DATA:Diagnostic tests reviewed for today's visit:ReviewedASSESSMENT/P LANMRSA and E coli HCAPButtock woundAcute respiratory failureFailed OP PO abx treatment w doxyWeaknessObesity, Class III, BMI >= 40Malnutrition of moderate degreePLAN:Vancomycin IVVanco T and adjust as neededCeftriaxoneSputum cxSupportive carePulmonary toiletFollowingDiscussed w Dr NugentSIGNATURE: Maged Mcginnis MD PATIENT NAME: Laura StarkDATE: December 16, 2016 : 6:24 PM PAGER/CONTACT #: [phone] Alonzo LEON 12/17/2016 8:40 AM SignedReceived report from evening or night nurse supervisor GERMAIN Brownlee.Kiara Nugent MD 12/17/2016 4:39 PM SignedINTERNAL MEDICINE PROGRESS NOTESERVICE DATE: 12/17/2016ADMITTING PHYSICIAN: Kiara SternJECTIVECHIALENA COMPLAINT: Feeling better then yday but still with cough and congestion.Current Facility-Administered Medications:0.9% NaCl 10 mL 10 mL INTRAVENOUS q 12 H0.9% NaCl 20 mL 20 mL INTRAVENOUS PRNcodeine-guaiFENesin 5-10 mL oral liquid (ROBITUSSIN AC) 5-10 mL ORAL q 6 H PRNdextrose 40 % 15 g (INSTA-GLUCOSE) 15 g ORAL PRNOrglucagon 1 mg injection (GLUCAGEN) 1 mg INTRAMUSCULAR PRNOrdextrose 50% in water 25 mL syringe 12.5 g INTRAVENOUS PRNinsulin lispro injection (rapid acting) (HumaLOG) SUBCUTANEOUS w MEALSHYDROcodone 5 mg - acetaminophen 325 mg tablet (NORCO) 1-2 tablet ORAL q 6 H PRNheparin 5,000 Units injection 5,000 Units SUBCUTANEOUS q 12 Hvancomycin 1.5 g in D5W 250 mL 1.5 g INTRAVENOUS q 12 HRcefTRIAXone 1 g in sterile water 10 mL (ROCEPHIN) 1 g INTRAVENOUS q 24 HmethylPREDNISolone sod succinate(PF) 40 mg injection (Solu-MEDROL) 40 mgINTRAVENOUS q 8 Hipratropium-albuterol 3 mL nebulizer solution (DUONEB) 3 mL INHALATION QIDdiltiazem CD 180 mg cap(s) (CARDIZEM CD, CARTIA XT) 180 mg ORAL DAILYmontelukast 10 mg tab(s) (SINGULAIR) 10 mg ORAL AT BEDTIMEmagnesium oxide 400 mg tab(s) (MAG-OX) 400 mg ORAL DAILYspironolactone 25 mg tab(s) (ALDACTONE) [address] 40 mg tab(s) (PROTONIX) 40 mg ORAL DAILYhydroCHLOROthiazide 25 mg tab(s) (HYDRODIURIL, ESIDRIX) 25 mg ORAL DAILYaspirin, enteric coated 325 mg tab(s) (ASPIRIN, ENTERIC COATED) 325 mg ORALDAILYvancomycin dosing and monitoring per pharmacy OTHER As Directedipratropium-albute rol 3 mL nebulizer solution (DUONEB) 3 mL INHALATION q 2 H PRNguaiFENesin 600 mg ER tab(s) (MUCINEX) 600 mg ORAL q 12 Hiv contrast (radiology procedure) INTRAVENOUS DIRECTED PRNINTERVAL HISTORY OF PRESENT ILLNESS: No new events. No n/v/d.No orthopnea, pnd,cpain, fever, chills.Consult notes reviewed.OBJECTIVEPHYSICAL EXAM:Patient Vitals for the past 24 hrs: BP Temp Temp src Pulse Resp [id number]/16 1600 143/77 36.7 ?C (98.1 ?F) Oral 91 16 97 %12/17/16 1200 153/83 36.9 ?C (98.5 ?F) Oral 106 15 -12/17/16 1010 - - - 95 18 -12/17/16 0959 - - - 106 20 97 %12/17/16 0830 136/80 37 ?C (98.6 ?F) Oral 78 14 99 %12/17/16 0625 - - - 85 20 -12/17/16 0617 - - - 80 20 100 %12/17/16 0006 109/75 36.4 ?C (97.5 ?F) Oral 87 18 98 %12/17/16 0002 - - - 98 18 -12/16/16 2345 - - - 97 18 98 %12/16/162017 - - - 88 16 97 %12/16/16 2007 129/62 36.8 ?C (98.2 ?F) Oral 90 18 96 %12/16/16 1645 - - - - 16 -Body mass index is 43.16 kg/(m2).GENERAL: Morbidly Obese, Alert, Mild DistressNECK: SuppleLUNGS: Positive findings: rhonchi bibasilar, wheezing bibasilarCARDIAC: Normal S1 and S2;ABDOMEN: Soft, nontenderEXTREMITIES: Extremities normal, no deformities, edema, clubbing or skindiscoloration. Good capillary refill.NEURO: Alert, oriented X 3, Gait normal. Non-focal. Reflexes normal andsymmetric. Sensation grossly intact.PULSES: 2+ radialDATA:Diagnostic tests reviewed for today's visit:Most recent labs and imaging results.ASSESSMENT/PLANAct aravind Problems: Acute Asthma exacerbation with recent sputum cx with MRSA and E. coli: Follow repeat cx, continue iv abx and steroids. Continue nebs. Pulmonary eval.Add codeine cough syrup, Weakness POA: Yes Assessment AND Plan: due to above. Obesity, Class III, BMI >= 40 (morbid obesity) E66.01 Assessment AND Plan: encourage wt. Loss. Hyperglycemia due to steroids: Add SSI.SIGNATURE: Kiara Nugent MD PATIENT NAME: Laura StarkDATE: December 17, 2016 : 4:34 PM PAGER/CONTACT #:Emeterio Braxton MD 12/17/2016 3:44 PM SignedThe [facility] Consultation Note, 12/17/2016When I stopped in to consult with patient, PICC team was around bedside, placingsterile drapes, in preparation of PICC line placement.I excused myself, and will try to return later today to complete consultation.Emeterio Braxton MD, [facility] [address] [address]A: [phone]: [phone] Estok, RN, RN 12/17/2016 3:14 PM SignedAMBULATORY PATIENT EDUCATIONTOPIC: Procedure PICCREADINESS TO LEARNCOGNITIVE ABILITY: Alert and orientedMOTIVATION TO LEARN: EagerFAMILY SUPPORT: None availibleINSTRUCTION PROVIDED TO: PatientPATIENT LEARNS BEST BY: Individual Instruction writtenFACTORS AFFECTING LEARNING: NonePHYSICAL LIMITATIONS AFFECTING LEARNING: NoneLEARNING RESPONSEDIAGNOSIS: Needs LTAMETHOD OF INSTRUCTION: Individual instructionWritten instruction - handoutsVerbal instructionPATIENT / FAMILY RESPONSE: Verbalizes understanding of: PRE-PROCEDUREINSTRUCTIONS- Correct action to take to follow pre-procedure instructionsFOLLOW-UP PLAN: Complete - No need for follow-upSUPPLEMENTAL MATERIAL: NoneREFERRAL (RECOMMENDATION): NoneElectronically Signed By: Brittnee Farnsworth RN In Department: [facility] CENTERBrittnee Farnsworth RN, RN 12/17/2016 3:28 PM SignedPICC NURSE INSERTION NOTEDATE OF PROCEDURE: December 17, 2016TIME OF PROCEDURE: 1500ORDERING PHYSICIAN: Brianne CONSENT: Obtained per hospital policy.INDICATION FOR LINE PLACEMENT: IV therapy over six daysCONDITION OF LINE PLACEMENT: SterilePRIMARY PROCEDURALIST: JURGEN CaroSISTANT: Brittnee FarnsworthPRE-PROCEDURE REVIEWALLERGIESAllergen Reactions- Clindamycin Hives- Macrodantin [Nitrof* Other: See Comments Off-balance- Percocet [Oxycodone* Other: See Comments Nausea- Sulfa (Sulfonamide * Rash, Itching localized rash and itching all over- Zithromax [Azithrom* Rash, Itching localized rash and itching all over- Zenicef [Other] Rash, Itching itching in mouth; localized rash and itching all overKnown History of Venous Thrombosis: NoKnown History of Permanent Pacemaker or Automated Implanted Cardiac Device: NoPrevious Breast Surgery of Lymph Node Dissection: NoHistory of Renal Disease with Arterio-Venous Fistula in Place or Planned: NoUltrasound Assessment Complete: Yes NoPROCEDURE NARRATIVESAFE PRACTICEHand Hygiene per Hospital Policy: YesSkin Preparation Unit Dose Applicator Used: Chloraprep (CHG + alcohol), allowedto dry.Procedure Surface Cleansed with Antimicrobial Wipes: YesBarriers Used by Proceduralist and all Assisting Personnel: YesUNIVERSAL PROTOCOL / SAFETY CHECKLISTProcedure to be performed:PICCSign in Communication: CompletedTime Out: Team Confirms the Correct Patient, Correct Procedure, Correct Siteand Site Marking, Correct Position (if applicable), Prep and Dry Time (ifapplicable). Time: 1505Affirmation of Time Out: YESSign Out Discussion: Alana Farnsworth RNCATHETER PLACEMENTBrand: Bard Lot: [id number] of Lumens: 1Type of PICC: Power Injectable PICCLumen Size: 4 FrenchPLACEMENT TECHNIQUELidocaine: Yes. Strength: 1% Volume 2 ccModified Seldinger Technique Used to Place Line via the Right BasilicUltrasound Guidance: YesNumber of Attempts at Insertion: 2Internal Length: 45 cm External Length: 2 cm Trim Length: 47 cmMid-Arm Circumference Above Insertion Site: 41 centimetersPost Insertion Pain Level Related to Procedure: 0Action Taken to Address Pain: None neededVerified Placement: Blood return, Ultrasound and Tip location system or deviceindicates the tip is located in the SVC/CAJ.Line was Flushed with 20 cc normal salineLine Secured with: Securement deviceSterile Dressing Applied and Dated: YesSterile Caps on all Ports Prior to Leaving Procedure Area: YesSPECIMENS: NoneCOMPLICATIONS: NonePatient Education Materials: Given to patientThe [facility] Central Line Insertion checklist, attached to the CentralLine-Associated Bloodstream Infection Prevention Policy, was utilized duringthis procedure.QUESTIONS or PROBLEMS: Call [phone]: Brittnee Farnsworth RN PATIENT NAME: Laura StarkDATE: December 17, 2016 : 3:16 PM PAGER/CONTACT PHONE:Maged Mcginnis MD, MD 12/17/2016 3:40 PM SignedINFECTIOUS DISEASE PROGRESS NOTEPatient Name: Laura Stark HISTORY:PICC placed. No fevers. SOB is better. Still weak. No diarrhea. ROS checked indetails. All qs answered.Patient Active Hospital Problem List: Weakness (12/16/2016) Obesity, Class III, BMI >= 40 (morbid obesity) E66.01 (12/16/2016) Malnutrition of moderate degree (HCC) (12/16/2016)ASSESSMENT:MRSA and E coli HCAPButtock woundAcute respiratory failureFailed OP PO abx treatment w doxyWeaknessObesity, Class III, BMI >= 40Malnutrition of moderate degreeRECOMMENDATIONS:Cont inue abxFollow cxSupportive carePO abx at discharge anticipated.MEDICATIONS: reviewed.Current hospital medications:0.9% NaCl 10 mL 10 mL INTRAVENOUS q 12 H0.9% NaCl 20 mL 20 mL INTRAVENOUS PRNcodeine-guaiFENesin 5-10 mL oral liquid (ROBITUSSIN AC) 5-10 mL ORAL q 6 H PRNHYDROcodone 5 mg - acetaminophen 325 mg tablet (NORCO) 1-2 tablet ORAL q 6 H PRNheparin 5,000 Units injection 5,000 Units SUBCUTANEOUS q 12 Hvancomycin 1.5 g in D5W 250 mL 1.5 g INTRAVENOUS q 12 HRcefTRIAXone 1 g in sterile water 10 mL (ROCEPHIN) 1 g INTRAVENOUS q 24 HmethylPREDNISolone sod succinate(PF) 40 mg injection (Solu-MEDROL) 40 mgINTRAVENOUS q 8 Hipratropium-albuterol 3 mL nebulizer solution (DUONEB) 3 mL INHALATION QIDdiltiazem CD 180 mg cap(s) (CARDIZEM CD, CARTIA XT) 180 mg ORAL DAILYmontelukast 10 mg tab(s) (SINGULAIR) 10 mg ORAL AT BEDTIMEmagnesium oxide 400 mg tab(s) (MAG-OX) 400 mg ORAL DAILYspironolactone 25 mg tab(s) (ALDACTONE) [address] 40 mg tab(s) (PROTONIX) 40 mg ORAL DAILYhydroCHLOROthiazide 25 mg tab(s) (HYDRODIURIL, ESIDRIX) 25 mg ORAL DAILYaspirin, enteric coated 325 mg tab(s) (ASPIRIN, ENTERIC COATED) 325 mg ORALDAILYvancomycin dosing and monitoring per pharmacy OTHER As Directedipratropium-albute rol 3 mL nebulizer solution (DUONEB) 3 mL INHALATION q 2 H PRNguaiFENesin 600 mg ER tab(s) (MUCINEX) 600 mg ORAL q 12 Hiv contrast (radiology procedure) INTRAVENOUS DIRECTED PRNPHYSICAL EXAM:Vital signs: BP 153/83 Pulse 106 Temp 36.9 ?C (98.5 ?F) (Oral) Resp 15 Ht 157.5 cm (5' 2) Wt 107 kg (236 lb) SpO2 97% BMI 43.16 kg/m2Temp (24hrs), Av.8 ?C (98.2 ?F), Min:36.4 ?C (97.5 ?F), Max:37 ?C (98.6 ?F)General: alert, oriented, NADLungs: bilaterally clear to auscultationHeart: regular rate and rhythmAbdomen: soft, non tender, non distended, BS+Extremities: no edemaNo rashesNo joint inflammationNeck suppleLines okNo CVATLabs:Recent Labs 12/17/1703725WBC 9.21 8.34 9.37HB 12.2 12.9 13.3HCT 38.7 41.5 42.7PLT 266 293 312INR -- -- 1.0APTT -- -- <20.0*NA 134 137 136K 4.5 3.3* 3.6CHLOR 94* 92* 91*CO2 23 23 24BUN 35* 33* 33*CREAT 1.22 1.11 1.12Microbiology data: reviewedImaging data: Du Mcginnis, MDPager: date of service: 12/17/2016Time of service: 3:39 PMThis note is not final until Authenticated by responsible provider.Diann Dinero, RN, RN 12/17/2016 4:16 PM SignedStudent nurse documentation has been reviewed.Rolo Del Castillo, Pharmacist 12/17/2016 10:55 PM SignedPHARMACY VANCOMYCIN DOSING NOTEPatient Name: Laura Stark Admission Date: 12/15/2016Date of Consult: 12/17/2016 Time of Consult: 10:53 PMIndication: PneumoniaGoal Range: 15-20 mcg/mLRECOMMENDATIONS/PLAN :Pharmacy consulted for vancomycin dosing for Laura Stark, a 61 year old,female who is being treated with vancomycin for pneumonia1. Patient is currently ordered Vancomycin 1.5 g IV q12h. Today is day 3 oftherapy.2. The most recent vancomycin level was 37.9 mcg/mL drawn at 2200 on 12/17. Thisis a 11 hour level on the 3rd day of therapy.3. Vancomycin level above therapeutic goal range. Continue to hold furthervancomycin IV doses.4. The next vancomycin level will be ordered for 12/18 unless clinicallyindicated sooner. (Pharmacy will order)We will follow patient renal function, vancomycin levels and doses with youduring the course of therapy. Additional recommendations will appear in followup notes. If you have any questions, please contact pharmacy at [phone].Age: 61 year oldAllergies:ALLERGIESAlle rgen Reactions- Clindamycin Hives- Macrodantin [Nitrof* Other: See Comments Off-balance- Percocet [Oxycodone* Other: See Comments Nausea- Sulfa (Sulfonamide * Rash, Itching localized rash and itching all over- Zithromax [Azithrom* Rash, Itching localized rash and itching all over- Zenicef [Other] Rash, Itching itching in mouth; localized rash and itching all overLast 3 Encounter Wt Readings: Date: Wt: 12/15/2016 107 kg (236 lb) 04/12/2016 115.2 kg (254 lb) 10/04/2015 113.4 kg (250 lb)Last 1 Encounter Ht Readings: Date: Ht: 12/15/2016 157.5 cm (5' 2)CrCl: 55 mL/minTemp (24hrs), Av.8 ?C (98.2 ?F), Min:36.4 ?C (97.5 ?F), Max:37 ?C (98.6 ?F) - Current Temp: 36.7 ?C (98.1 ?F)LabsBUN (mg/dL)Date Value12/17/2016 35 (H)12/16/2016 33 (H)12/15/2016 33 (H) Creatinine (mg/dL)Date Value12/17/2016 1.22102/16/2016 1.1111 1.12 WBC (k/uL)Date Value12/17/2016 9.2111 8.3411/02/2016 9.37 Vancomycin Levels:Vancomycin, result (ug/mL)Date Value12/17/2016 37.9 (H) Kiki Parkinson, RN, RN 12/18/2016 1:18 AM Signed Nursing Progress NotePatient Name: Laura StarkMRN: [id number] Location: [facility]199/[id number]___ Daily Note:PCNA informed RN of tachycardia during routine vital signs. Pt rate [id number] Nugent notified- order for stat EKG and to give PO cardizem now. called back at 0112 with EKG results of Atrial Fibrillation with rapidventricular response and possible inferior subendocardial injury. Verbal orderto transfer patient to [address] [place] [address].This note was completed by: Ernestina Burgos, Jamila Nguyễn, RN, RN 12/18/2016 6:24 PM Addendum Nursing Progress NotePatient Name: Laura StarkMRN: [id number] Location: [place] [address]/[id number]___ Daily Note:0715- Bedside report received. Pt resting in bed. Denies needs. Call lightwithin reach.0800- Resting in bed. AANDOx3. Apical regular. Denies palpitations or dyspnea. C/Ointermittent chest discomfort due to cough. Lungs with coarse expiratorywheezes. Resp easy on RA. Moist cough noted. Harsh, raspy voice noted. Abd soft,obese. BSx4. Skin warm, dry,color pink. PPP. RUE non-pitting edema noted,elevated. NS at 75 ml/hr and Diltiazem at 10 ml/hr infusing through RUE PICClinewithout difficulty. Denies needs. Call light within reach.0930- Resting in bed. PO meds, Rocephin IV push, and Humalog 2 units SQ given.Fresh ice water provided. Denies other needs. Call light within reach.1015- Dr. Nugent rounds.1055- Cardizem gtt decreased to 5 ml/hr. Dr. Jeb jnenings, aware of pt convertingto SR, states ok to titrate off Cardizem gtt.1200- Remains in SR, HR 90-100. Cardizem discontinued. Family at bedside. Ptsitting on edge of bed. C/O nausea. Breanne sanjiv and saltine crackers provided.1410- Pt sitting on edge of bed. Still having nausea. Family at bedside.1415- Paged Dr. Nugent for nausea med.1530- No return phone call. Repaged.1615- Spoke with Dr. Nugent regarding nausea, order received.1700- Pt resting in bed. Aware of order for nausea. Pt denies need at this time.Call light within reach.1815- Pt's HR 130's. Pt repositioned herself to edge of bed. SOB noted. Willmonitor. Denies needs. Call light within reach.This note was completed by: Diana Romo MD 12/18/2016 12:31 PM SignedINTERNAL MEDICINE PROGRESS NOTEADMITTING PHYSICIAN: Kiara SternJECTIVECHIALENA COMPLAINT: Feeling better then yday but still with cough and congestion.Current Facility-Administered Medications:enoxaparin 105 mg injection (LOVENOX) 1 mg/kg/dose SUBCUTANEOUS q 12 HRmorphine 1-2 mg injection 1-2 mg INTRAVENOUS q 4 H PRNdigoxin 0.25 mg tab(s) (LANOXIN) 0.25 mg ORAL DAILYpolyethylene glycol 3350 17 g packet (MIRALAX, GLYCOLAX) 17 g ORAL DAILY0.9% NaCl 10 mL 10 mL INTRAVENOUS q 12 H0.9% NaCl 20 mL 20 mL INTRAVENOUS PRNcodeine-guaiFENesin 5-10 mL oral liquid (ROBITUSSIN AC) 5-10 mL ORAL q 6 H PRNdextrose 40 % 15 g (INSTA-GLUCOSE) 15 g ORAL PRNOrglucagon 1 mg injection (GLUCAGEN) 1 mg INTRAMUSCULAR PRNOrdextrose 50% in water 25 mL syringe 12.5 g INTRAVENOUS PRNinsulin lispro injection (rapid acting) (HumaLOG) SUBCUTANEOUS w MEALSinsulin lispro injection (rapid acting) (HumaLOG) SUBCUTANEOUS AT BEDTIMEHYDROcodone 5 mg - acetaminophen 325 mg tablet (NORCO) 1-2 tablet ORAL q 6 H PRNcefTRIAXone 1 g in sterile water 10 mL (ROCEPHIN) 1 g INTRAVENOUS q 24 HmethylPREDNISolone sod succinate(PF) 40 mg injection (Solu-MEDROL) 40 mgINTRAVENOUS q 8 Hipratropium-albuterol 3 mL nebulizer solution (DUONEB) 3 mL INHALATION QIDmontelukast 10 mg tab(s) (SINGULAIR) 10 mg ORAL AT BEDTIMEmagnesium oxide 400 mg tab(s) (MAG-OX) 400 mg ORAL DAILYspironolactone 25 mg tab(s) (ALDACTONE) [address] 40 mg tab(s) (PROTONIX) 40 mg ORAL DAILYhydroCHLOROthiazide 25 mg tab(s) (HYDRODIURIL, ESIDRIX) 25 mg ORAL DAILYaspirin, enteric coated 325 mg tab(s) (ASPIRIN, ENTERIC COATED) 325 mg ORALDAILYvancomycin dosing and monitoring per pharmacy OTHER As Directedipratropium-albute rol 3 mL nebulizer solution (DUONEB) 3 mL INHALATION q 2 H PRNguaiFENesin 600 mg ER tab(s) (MUCINEX) 600 mg ORAL q 12 Hiv contrast (radiology procedure) INTRAVENOUS DIRECTED PRNINTERVAL HISTORY OF PRESENT ILLNESS: Transferred [facility] due to rapid afib, nowin NSR. No n/v/d.No orthopnea, pnd,cpain, fever, chills.Consult notes reviewed.OBJECTIVEPHYSICAL EXAM:Blood pressure 140/75, pulse 99, temperature 37.3 ?C (99.1 ?F), temperaturesource Oral, resp. rate 20, height 157.5 cm (5' 2), weight 108.2 kg (238 lb 8.6oz), SpO2 97 %.Body mass index is 43.63 kg/(m2).GENERAL: Morbidly Obese, Alert, Mild DistressNECK: SuppleLUNGS: Positive findings: rhonchi bibasilar, wheezing bibasilarCARDIAC: Normal S1 and S2;ABDOMEN: Soft, nontenderEXTREMITIES: Extremities normal, no deformities, edema, clubbing or skindiscoloration. Good capillary refill.NEURO: Alert, oriented X 3, Gait normal. Non-focal. Reflexes normal andsymmetric. Sensation grossly intact.PULSES: 2+ radialDATA:Diagnostic tests reviewed for today's visit:Most recent labs and imaging results.ASSESSMENT/PLANAct aravind Problems: Acute Asthma exacerbation with HCAP? recent sputum cx with MRSA and E. coli: Follow repeat cx, continue iv abx and decrease iv steroids. Continue nebs.Pulmonary eval. Add codeine cough syrup, Weakness POA: Yes Assessment AND Plan: due to above. Obesity, Class III, BMI >= 40 (morbid obesity) E66.01 Assessment AND Plan: encourage wt. Loss. Hyperglycemia due to steroids: Add SSI.PAF:Now in NSR,Cardio eval.SIGNATURE: Kiara Nugent MD PATIENT NAME: Laura Stark PAGER/CONTACT #:Santos Russ MD 12/18/2016 11:13 AM SignedCONSULT: CARDIOLOGY SERVICESERVICE DATE: 12/18/2016SERVICE TIME: 10:46 AMCONSULTING PHYSICIAN: Santos Russ MDPCP: Moreno Donnelly MDATTENDING: Kiara Mccabe FOR CONSULT: Arrhythmias /AF with RVRSUBJECTIVECHIEF COMPLAINT: General weakness [R53.1]HISTORY OF PRESENT ILLNESS: Ms. Stark is a 61 year old female who presentsfor increasing SOB.She has history of asthma, remote PE, DVT, hypertension. She had developedpalpitations and SOB last night andWas found to have AF with RVR on the telemetry. She had no CP or fainting. HerSOB was worse with increase in fatigueNo fever. Her cough is improving with little sputumPAST MEDICAL HISTORYDiagnosis Date- DVT (deep venous thrombosis) (HCC) 1995 Rt lower leg- PE (pulmonary embolism)- Unspecified asthma(493.90)- Unspecified essential hypertensionPAST SURGICAL HISTORYProcedure Laterality Date- APPENDECTOMY- DELIVERY ONLY , low cervical- COLONOSCOP W/ OR W/O [facility] SPEC 01-09-13- DEBRIDE SKIN AND SUBQ TISSU 02-10-12- FILTER PLACEMENT (VENA CAVA) 01-15-13- FNA WITH IMAGING 05/26/11 U/S FNA left thyroid nodule- FREEING BOWEL ADHESION,ENTEROLYSIS 03-24-12- INSER NON-TUNNEL CVC >= 5 YR 03-24-12- LAP INC CY RECUR COMP 01-18-13- PAST SURGICAL HISTORY OF 2003 right ankle surgery-fusion- PAST SURGICAL HISTORY OF 2009 right shoulder partial replacement- REPAIR INCIS HERNIA W MESH 01-31-12- REPAIR INCISIONAL HERNIA,LALO 01-31-12- TOTAL ABDOM HYSTERECTOMY 1996 Hysterectomy, RONN- TRANSCATH RETRIEVAL,PERCUT 02-21-13 FILTER REMOVALFAMILY HISTORYProblem Relation Age of Onset- Cancer Father skin- Hypertension Father- Cancer Maternal Grandmother colon- Cancer Paternal Grandfather leukemia- Diabetes Mother- Hypertension Mother- Ischemic Heart Disease Mother- Hypertension Maternal Grandfather- Ischemic Heart Disease Maternal Grandfather- Diabetes Maternal GrandfatherSocial HistorySubstance Use Topics- Smoking status: Former Smoker Packs/day: 1.00 Years: 20.00 Types: Cigarettes Quit date: 10/29/1995- Smokeless tobacco: Not on file- Alcohol use NoPrior to Admission MedicationsPrescriptions Last Dose Informant Patient Reported? Taking?Omeprazole (PRILOSEC) 40 mg capsule 12/15/2016 at 0700 Yes YesSig: Take 40 mg by mouth once daily.acetaminophen (TYLENOL ARTHRITIS PAIN) 650 mg CR tablet 12/14/2016 at 2200 YesYesSig: Take 1,300 mg by mouth at bedtime as needed.albuterol (PROVENTIL) 2.5 mg /3 mL (0.083 %) nebulizer solution 12/15/2016 YesYesSig: Use 2.5 mg via nebulizer every 4 hours as needed.albuterol HFA (PROAIR HFA) 90 mcg/actuation inhaler Yes YesSig: Inhale 2 Puffs as instructed every 4 hours as needed.aspirin, enteric coated (ASPIRIN, ENTERIC COATED) 325 mg EC tablet 12/15/2016 [id number] Yes YesSig: Take 325 mg by mouth once daily.diltiazem CD (CARDIZEM CD) 180 mg 24 hr capsule 12/15/2016 at 1200 Yes YesSig: Take 180 mg by mouth once daily.doxycycline hyclate (VIBRAMYCIN) 100 mg capsule 12/15/2016 at 0700 Yes YesSig: Take 100 mg by mouth twice daily. 12/17/16 AM last dosefluticasone (FLONASE) 50 mcg/actuation nasal spray 12/15/2016 at 0700 Yes YesSig: Use 1 [place] in each nostril twice daily.fluticasone-salmeter ol (ADVAIR DISKUS) 500-50 mcg/dose dsdv 12/15/2016 at 0700Yes YesSig: Inhale 1 Puff as instructed twice daily.guaiFENesin (MUCINEX) 1,200 mg Ta12 12/15/2016 at 0700 Yes YesSig: Take by mouth twice daily.hydroCHLOROthiazide (HYDRODIURIL, ESIDRIX) 25 mg tablet 12/15/2016 at 1200 YesYesSig: Take 25 mg by mouth once daily.ipratropium-albutero l (DUONEB) 0.5 mg-3 mg(2.5 mg base)/3 mL nebu Unknown atUnknown time Yes YesSig: Inhale 3 mL as instructed every 4 hours as needed.magnesium oxide (MAG-OX) 400 mg tablet 12/14/2016 at 2200 Yes YesSig: Take 400 mg by mouth once daily.melatonin 3 mg 12/14/2016 at 2200 Yes YesSig: Take 3 mg by mouth daily at bedtime.montelukast (SINGULAIR) 10 mg tablet 12/14/2016 at 2200 Yes YesSig: Take 10 mg by mouth daily at bedtime.predniSONE (DELTASONE) 20 mg tablet Yes YesSig: Take 20 mg by mouth once daily. Taper starting 12/16/16 20mg x3 days, [id number], 5mg x3 days. Then discontinuedspironolactone (ALDACTONE) 25 mg tablet 12/15/2016 at 1200 Yes YesSig: Take 25 mg by mouth twice daily.Facility-Administere d Medications: NoneCurrent hospital medications:enoxaparin 105 mg injection (LOVENOX) 1 mg/kg/dose SUBCUTANEOUS q 12 HRmorphine 1-2 mg injection 1-2 mg INTRAVENOUS q 4 H PRNdigoxin 0.25 mg tab(s) (LANOXIN) 0.25 mg ORAL DAILYdiltiazem 125 mg in D5W 125 mL iv infusion (CARDIZEM) 10 mg/hr INTRAVENOUSCONTINUOUSpolye thylene glycol 3350 17 g packet (MIRALAX, GLYCOLAX) 17 g ORAL DAILY0.9% NaCl 10 mL 10 mL INTRAVENOUS q 12 H0.9% NaCl 20 mL 20 mL INTRAVENOUS PRNcodeine-guaiFENesin 5-10 mL oral liquid (ROBITUSSIN AC) 5-10 mL ORAL q 6 H PRNdextrose 40 % 15 g (INSTA-GLUCOSE) 15 g ORAL PRNglucagon 1 mg injection (GLUCAGEN) 1 mg INTRAMUSCULAR PRNdextrose 50% in water 25 mL syringe 12.5 g INTRAVENOUS PRNinsulin lispro injection (rapid acting) (HumaLOG) SUBCUTANEOUS w MEALSinsulin lispro injection (rapid acting) (HumaLOG) SUBCUTANEOUS AT BEDTIMEHYDROcodone 5 mg - acetaminophen 325 mg tablet (NORCO) 1-2 tablet ORAL q 6 H PRNcefTRIAXone 1 g in sterile water 10 mL (ROCEPHIN) 1 g INTRAVENOUS q 24 HmethylPREDNISolone sod succinate(PF) 40 mg injection (Solu-MEDROL) 40 mgINTRAVENOUS q 8 Hipratropium-albuterol 3 mL nebulizer solution (DUONEB) 3 mL INHALATION QIDdiltiazem CD 180 mg cap(s) (CARDIZEM CD, CARTIA XT) 180 mg ORAL DAILYmontelukast 10 mg tab(s) (SINGULAIR) 10 mg ORAL AT BEDTIMEmagnesium oxide 400 mg tab(s) (MAG-OX) 400 mg ORAL DAILYspironolactone 25 mg tab(s) (ALDACTONE) [address] 40 mg tab(s) (PROTONIX) 40 mg ORAL DAILYhydroCHLOROthiazide 25 mg tab(s) (HYDRODIURIL, ESIDRIX) 25 mg ORAL DAILYaspirin, enteric coated 325 mg tab(s) (ASPIRIN, ENTERIC COATED) 325 mg ORALDAILYvancomycin dosing and monitoring per pharmacy OTHER As Directedipratropium-albute rol 3 mL nebulizer solution (DUONEB) 3 mL INHALATION q 2 H PRNguaiFENesin 600 mg ER tab(s) (MUCINEX) 600 mg ORAL q 12 Hiv contrast (radiology procedure) INTRAVENOUS DIRECTED PRNALLERGIESAllergen Reactions- Clindamycin Hives- Macrodantin [Nitrof* Other: See Comments Off-balance- Percocet [Oxycodone* Other: See Comments Nausea- Sulfa (Sulfonamide * Rash, Itching localized rash and itching all over- Zithromax [Azithrom* Rash, Itching localized rash and itching all over- Zenicef [Other] Rash, Itching itching in mouth; localized rash and itching all overREVIEW OF SYSTEMS:The following systems were reviewed with the patient, and are unremarkable otherthan as described below.SYSTEMIC: No fever, chills, or change in weight or appetiteHEENT: No recent change in vision or hearing.CARDIOVASCULAR: See HPI.GI: No recent nausea, vomiting or diarrhea.: No recent hematuria or dysuria.SKIN: No new recent itching or eruption.PSYCH: No recent active anxiety or depression.HEMATOLOGY/ONCO LOGY: No recent diagnosis of bleeding or cancer.ENDOCRINE: No recent polyuria or heat intolerance.NEURO: No recent TIA, stroke or seizures.RHEUMATOLOGY: No recent active connective tissue disease.OBJECTIVEPHYSICAL EXAM:Pleasant, not in acute distress.Awake, alert, oriented times 3.Moves all extremities.SKIN: Has bruising reyes on the upper extremities. No lumps.HEENT: Normocephalic, face symmetrical.NECK: Supple, no JVD, no carotid bruit, no thyromegaly.LUNGS: She has wheezing to auscultation bilaterally.CARDIAC: Normal S1 and S2, no S3 or S4, no additional heart sounds or murmurs.ABDOMEN: Soft, nontender, bowel sounds present.EXTREMITIES: Right shoulder extension and abduction is limited. Mild pittingedema.PULSES: Peripheral pulses present.NEURO: NonfocalBody mass index is 43.63 kg/(m2).Patient Vitals for the past 24 hrs: BP Temp Temp src Pulse Resp SpO2 Vuqsgb44/04/17 1015 140/75 37.3 ?C (99.1 ?F) Oral 92 18 94 % -12/18/16 0832 - - - 93 18 - -12/18/16 0822 - - - 92 20 96 % -12/18/16 0751 128/69 37.1 ?C (98.8 ?F) Oral 86 18 95 % -12/18/16 0657 138/84 - Oral 89 17 97 % -12/18/16 0600 - - - - - - 108.2 kg (238 lb 8.6 oz)12/18/16 0516 - - - (!) 140 - - -12/18/16 0419 103/70 36.7 ?C (98.1 ?F) Oral 88 18 95 % -12/18/16 0214 146/72 37 ?C (98.6 ?F) Oral (!) 160 18 96 % -12/18/16 0101 151/93 37 ?C (98.6 ?F) Oral (!) 160 19 96 % -12/18/16 0050 - - - 90 18 - -12/18/16 0036 - - - 93 18 96 % -12/17/161924 - - - 92 18 - -12/17/161914 - - - 93 20 96 % -12/17/16 1600 143/77 36.7 ?C (98.1 ?F) Oral 91 16 97 % -12/17/16 1200 153/83 36.9 ?C (98.5 ?F) Oral 106 15 - -DATA:Diagnostic tests reviewed for today's visit:Most recent labs and imaging results.Most recent EKG. AF with RVR and nonspecific ST T changesTelemetry reviewed. Now in NSR with PACsPast 72 Hour Labs:Recent Labs 12/17/1703288683YH -- -- -- 62TROPT -- -- -- <0.010WBC 10.96 < > 8.34 9.37RBC 4.33 < > 4.81 4.97HB 11.8 < > 12.9 13.3HCT 36.7 < > 41.5 42.7MCV 84.8 < > 86.3 85.9MCH 27.3 < > 26.8 26.8MCHC 32.2 < > 31.1 31.1RDWCV 17.0* < > 17.1* 17.0*PLT 267 < > 293 312MPV 10.1 < > 10.3 10.0NEUTP -- -- 91.7 85.6LYMPHP -- -- 5.0 7.2MONOP -- -- 3.2 7.0EODINP -- -- 0.0 0.0BASOP -- -- 0.1 0.2ABSNEUT -- -- 7.64* 8.02*ABSMONO -- -- 0.27 0.66ABSEOSIN -- -- <0.03 <0.03ABSBASO -- -- <0.03 <0.03GLUC 224* < > 172* 158*BUN 44* < > 33* 33*CREAT 1.41* < > 1.11 1.12NA 130* < > 137 136K 4.0 < > 3.3* 3.6CHLOR 90* < > 92* 91*CO2 22* < > 23 24TPROT 6.2 < > 7.1 7.5ALB 3.5 < > 3.9 4.2CA 9.5 < > 9.6 10.2ALKPHOS 75 < > 92 98TBILI 0.4 < > 0.4 0.6AST 15 < > 12 13ALT 31 < > 31 32PTSEC -- -- -- 10.0APTT -- -- -- <20.0*INR -- -- -- 1.0MG -- -- -- 1.9< > = values in this interval not displayed.Last Lab Drawn:No results found for this basename: TSH,PROBNP,TG,HDL,LDL,CHOL IMPRESSION/RECOMMENDATIONS Patient Active Hospital Problem List: Weakness (12/16/2016) Obesity, Class III, BMI >= 40 (morbid obesity) E66.01 (12/16/2016) Malnutrition of moderate degree (HCC) (12/16/2016)PAF with RVRH/O DVT and Pulm Emboli (hypercoagulable state?)Had normal Echo EF 60% and normal SPECT scan at [place] by Chuck recentlyASSESSMENT AND PLAN:I will D/C cardizem gtt and give her Cardizem 240 mg daily from tomorrow.Can D/D DigoxinRecommend Pradaxa 75 mg BID as Creatinine is little high today. If itnormalizes, we can give her 150 mg BIDAs she is at high risk of AF recurrence / Thromboembolic disease.I discussed risks and benefits and she agrees to monitor closelySIGNATURE: Santos Russ MD PATIENT NAME: Laura StarkDATE: December 18, 2016 : 10:46 AM PAGER/CONTACT #: [id number] Livingston MD 12/18/2016 1:10 PM SignedRespiratory InstituteCONSULTATION NOTEConsulting Physician: Dr. [facility]Mc[facility]: Asthma exacerbationHPI: This is a 61 year old year-old F with a PMHx significant for asthma, VTEand HTN, here for management of asthma with respiratory tract infection. Statesthat symptoms started a couple of months ago as an URI that triggered her usualasthma flare. Usually she takes 1-2 weeks of steroids and her asthma flareresolved. However, this time the asthma symptoms/SOB/wheezing lasted longer,until now. During this time she was evaluated by local physicians and sputumculture grew MRSA. She did not respond to course of doxycycline, [facility], she is being treated for her asthma flare and fora respiratory tract infection with ceftriaxone and vancomycin. CT chest did notshow a very convincing consolidation/pneumonia.NEDA VILLAGOMEZ MEDICAL HISTORYDiagnosis Date- DVT (deep venous thrombosis) (HCC) 1995 Rt lower leg- PE (pulmonary embolism)- Unspecified asthma(493.90)- Unspecified essential hypertensionPAST SURGICAL HISTORYProcedure Laterality Date- APPENDECTOMY- DELIVERY ONLY , low cervical- COLONOSCOP W/ OR W/O [facility] SPEC 01-09-13- DEBRIDE SKIN AND SUBQ TISSU 02-10-12- FILTER PLACEMENT (VENA CAVA) 01-15-13- FNA WITH IMAGING 05/26/11 U/S FNA left thyroid nodule- FREEING BOWEL ADHESION,ENTEROLYSIS 03-24-12- INSER NON-TUNNEL CVC >= 5 YR 03-24-12- LAP INC CY RECUR COMP 01-18-13- PAST SURGICAL HISTORY OF 2003 right ankle surgery-fusion- PAST SURGICAL HISTORY OF 2009 right shoulder partial replacement- REPAIR INCIS HERNIA W MESH 01-31-12- REPAIR INCISIONAL HERNIA,LALO 01-31-12- TOTAL ABDOM HYSTERECTOMY 1996 Hysterectomy, RONN- TRANSCATH RETRIEVAL,PERCUT 02-21-13 FILTER REMOVALCurrent Facility-Administered Medications:enoxaparin 105 mg injection (LOVENOX) 1 mg/kg/dose SUBCUTANEOUS q 12 HRmorphine 1-2 mg injection 1-2 mg INTRAVENOUS q 4 H PRNdigoxin 0.25 mg tab(s) (LANOXIN) 0.25 mg ORAL DAILYpolyethylene glycol 3350 17 g packet (MIRALAX, GLYCOLAX) 17 g ORAL DAILY[START ON 12/19/2016] diltiazem CD 240 mg cap(s) (CARDIZEM CD, CARTIA XT) 240 mgORAL DAILYmethylPREDNISolone sod succinate(PF) 40 mg injection (Solu-MEDROL) 40 mgINTRAVENOUS q 12 H0.9% NaCl 10 mL 10 mL INTRAVENOUS q 12 H0.9% NaCl 20 mL 20 mL INTRAVENOUS PRNcodeine-guaiFENesin 5-10 mL oral liquid (ROBITUSSIN AC) 5-10 mL ORAL q 6 H PRNdextrose 40 % 15 g (INSTA-GLUCOSE) 15 g ORAL PRNOrglucagon 1 mg injection (GLUCAGEN) 1 mg INTRAMUSCULAR PRNOrdextrose 50% in water 25 mL syringe 12.5 g INTRAVENOUS PRNinsulin lispro injection (rapid acting) (HumaLOG) SUBCUTANEOUS w MEALSinsulin lispro injection (rapid acting) (HumaLOG) SUBCUTANEOUS AT BEDTIMEHYDROcodone 5 mg - acetaminophen 325 mg tablet (NORCO) 1-2 tablet ORAL q 6 H PRNcefTRIAXone 1 g in sterile water 10 mL (ROCEPHIN) 1 g INTRAVENOUS q 24 Hipratropium-albuterol 3 mL nebulizer solution (DUONEB) 3 mL INHALATION QIDmontelukast 10 mg tab(s) (SINGULAIR) 10 mg ORAL AT BEDTIMEmagnesium oxide 400 mg tab(s) (MAG-OX) 400 mg ORAL DAILYspironolactone 25 mg tab(s) (ALDACTONE) [address] 40 mg tab(s) (PROTONIX) 40 mg ORAL DAILYhydroCHLOROthiazide 25 mg tab(s) (HYDRODIURIL, ESIDRIX) 25 mg ORAL DAILYaspirin, enteric coated 325 mg tab(s) (ASPIRIN, ENTERIC COATED) 325 mg ORALDAILYvancomycin dosing and monitoring per pharmacy OTHER As Directedipratropium-albute rol 3 mL nebulizer solution (DUONEB) 3 mL INHALATION q 2 H PRNguaiFENesin 600 mg ER tab(s) (MUCINEX) 600 mg ORAL q 12 Hiv contrast (radiology procedure) INTRAVENOUS DIRECTED PRNALLERGIESAllergen Reactions- Clindamycin Hives- Macrodantin [Nitrof* Other: See Comments Off-balance- Percocet [Oxycodone* Other: See Comments Nausea- Sulfa (Sulfonamide * Rash, Itching localized rash and itching all over- Zithromax [Azithrom* Rash, Itching localized rash and itching all over- Zenicef [Other] Rash, Itching itching in mouth; localized rash and itching all overFAMILY HISTORYProblem Relation Age of Onset- Cancer Father skin- Hypertension Father- Cancer Maternal Grandmother colon- Cancer Paternal Grandfather leukemia- Diabetes Mother- Hypertension Mother- Ischemic Heart Disease Mother- Hypertension Maternal Grandfather- Ischemic Heart Disease Maternal Grandfather- Diabetes Maternal GrandfatherSocial History Marital status: Spouse name: Years of education: Number of children:Social History Main Topics Smoking status: Former Smoker Packs/day: 1.00 Years: 20.00 Types: Cigarettes Quit date: 10/29/1995 Alcohol use: No Drug use: NoREVIEW OF SYSTEMSGENERAL: No weight loss, malaise or feversHEENT: Negative for frequent or significant headaches, No changes in hearing orvision, no nose bleeds or other nasal problemsNECK: Negative for lumps, goiter, pain and significant neck swellingRESPIRATORY: See HPI.CARDIOVASCULAR: Negative for chest pain, leg swelling or palpitationsGI: No nausea, vomiting, or diarrheaGU: No history of dysuria, frequency or incontinenceMUSCULOSKELETA L: Negative for joint pain or swelling, back pain or muscle painSKIN: Negative for lesions, rash, and itchingPSYCH: Negative for sleep disturbance, mood disorder and recent psychosocialstressorsHEMAT OLOGY/LYMPHOLOGY: Negative for prolonged bleeding, bruising easily orswollen nodesENDOCRINE: Negative for cold or heat intolerance, polyuria, polydipsia andgoiterEXTREMITIES: No clubbing, no nail changes, no Raynaud'sNEURO: No history of headaches, syncope, paralysis, seizures or tremorsPhysical Exam:BP 157/95 Pulse 98 Temp 37.2 ?C (99 ?F) (Oral) Resp 18 Ht 157.5 cm (5'2) Wt 106.9 kg (235 lb 10.8 oz) SpO2 92% BMI 43.1 kg/r0Vpieeqt appearance: Well appearing, alert, in no acute distress, well-hydrated,well nourished.Skin: Skin color, texture, turgor normal, no suspicious rashes or lesionsHead: Normocephalic, no masses, lesions, tenderness or abnormalitiesEyes: No jaundice, no redness.Oropharynx: Lips, mucosa, and tongue normal, teeth and gums normal, oropharynxnormalNeck: No adenopathy, no tendernessLungs: Bilateral wheezingHeart: RRR without murmur, gallop, or rubs. No ectopyAbdomen: Abdomen soft, non-tender.Extremities: No deformities, edema, skin discoloration, clubbing or cyanosis.Musculoskeletal: No joint swelling, deformity, or tendernessNeuro: Gait normal, grossly non-focal.Data Reviewed:WBC 10.9CT chest independently reviewed by me, with no definite consolidationsImpression/P ike:1. Asthma exacerbation- Patient has symptoms consistent with asthma exacerbation, with wheezing andSOB, typical for her usual flares except that this time is lasting longer- Trigger for her flare was definitely a respiratory tract infection due to herinitial URI symptoms and positive sputum cultures. However, I am not convincedshe had a pneumonia, due to the lack of consolidation on her CT chest.Regardless, even if she had only a tracheobronchitis, due to her failure torespond to outpatient oral antibiotics, I agree with ID recommendation of IVantibiotics now. Please continue to follow ID recommendations for AB management.- Continue IV steroids, but I would decrease it to q12h.- Continue with Duoneb.Elmer Livingston MDNov2016 1:00 PMGaurang Antonio Pharmacist 12/18/2016 3:14 PM SignedPHARMACY VANCOMYCIN DOSING NOTEPatient Name: Laura Stark Admission Date: 12/15/2016Date of Consult: 12/18/2016 Time of Consult: 3:12 PMIndication: PneumoniaGoal Range: 15-20 mcg/mLRECOMMENDATIONS/PLAN :Pharmacy consulted for vancomycin dosing for Laura Stark, a 61 year old,female who is being treated with vancomycin.1. Vanco currently being held. Today is day 4 of therapy.2. The most recent vancomycin level was 37.9 mcg/mL drawn at 2200 on 12/17. Thisis a 11 hour level on the 3rd day of therapy.3. The next vancomycin level will be ordered for 0900 on 12/19 unless clinicallyindicated sooner. (Pharmacy will order)We will follow patient renal function, vancomycin levels and doses with youduring the course of therapy. Additional recommendations will appear in followup notes. If you have any questions, please contact pharmacy at [phone].Age: 61 year oldAllergies:ALLERGIESAlle rgen Reactions- Clindamycin Hives- Macrodantin [Nitrof* Other: See Comments Off-balance- Percocet [Oxycodone* Other: See Comments Nausea- Sulfa (Sulfonamide * Rash, Itching localized rash and itching all over- Zithromax [Azithrom* Rash, Itching localized rash and itching all over- Zenicef [Other] Rash, Itching itching in mouth; localized rash and itching all overLast 3 Encounter Wt Readings: Date: Wt: 12/15/2016 106.9 kg (235 lb 10.8 oz) 04/12/2016 115.2 kg (254 lb) 10/04/2015 113.4 kg (250 lb)Last 1 Encounter Ht Readings: Date: Ht: 12/15/2016 157.5 cm (5' 2)CrCl: 47.5 mL/minTemp (24hrs), Av ?C (98.6 ?F), Min:36.7 ?C (98.1 ?F), Max:37.3 ?C (99.1 ?F) - Current Temp: 37.2 ?C (99 ?F)LabsBUN (mg/dL)Date Value12/18/2016 44 (H)12/17/2016 35 (H)12/16/2016 33 (H) Creatinine (mg/dL)Date Value12/18/2016 1.41 (H)12/17/2016 1.22102/16/2016 1.11 WBC (k/uL)Date Value12/18/2016 10.9612/17/2016 9. 8.34 Vancomycin Levels:Vancomycin, result (ug/mL)Date Value12/17/2016 37.9 (H) Gaurang Antonio, PharmacistSharee Harp, RN, RN 12/19/2016 4:28 AM Addendum Nursing Progress NotePatient Name: Laura StarkMRN: [id number] Location: [facility] [place]/[id number]-___ Daily Note:2300-Call to Dr. Russ regarding pt HR in 140-170's. Pt is up in BR washing up.Reports [place]. Tele reported she was having artifact and ultimately she went backinto A-fib. Dr. Russ gave VTO to give amiodarone 400 mg TID.2320- EKG done d/t A-fib on tele. Pt in bed, breathing audibly. Reports no s/sof chest pain, pressure, or discomfort. Bed low and locked, call light in reach.2345-Pt c/o dizziness, dyspnea, and chest pressure on L side radiating to neckslightly. Pt given amiodarone per Dr. Russ orders. Pt still audibly breathingand coughing (non-productive). Will cont. To monitor chest discomfort/pressure.Pt asking for breathing tx. Notified RT. Call light in reach, bed low locked.0100-Pt observed sleeping. No s/s of distress. HR down to 100-110 bpm. Calllight in [id number] draws collected from PICC line and sent to [facility] note was completed by: Sharee Harp, Diana Nguyễn, RN, RN 12/19/2016 8:00 PM Addendum Nursing Progress NotePatient Name: Laura StarkMRN: [id number] Location: [place]/JA-8P-[id number]-___ Daily Note:0730- Bedside report received. Pt sleeping. No needs noted. Call light withinreach.0735- Pt converted back to Afib.0810- Resting in bed. AANDOx3. Apical irregular. Converted back to Afib, [id number]'s. Denies chest pain. C/O palpitations and dyspnea. Lungs with coarsewheezes. Resp slightly labored at rest. Moist cough noted. Abd soft, obese.BSx4. Skin warm, dry, color pink. PPP. LLE 4+ edema. RLE 2+ edema. RUE PICClineintact. Denies needs. Call light within reach.0930- Dr. Russ rounds, updated on pt's status and pt converting back to Afib.1000- Vanco trough level drawn for PICCline and sent to lab. PO meds givenwithout difficulty. Rocephin IV push given slowly. Family at bedside. Deniesneeds. Call light within reach.1015- Dr. Russ rounds.1210- Pt up to BR, HR 150-160's. Pt symptomatic with increased SOB andpalpitations. Dr. Russ notified and orders received. Pt informed on use of BSCuntil HR normalized.1500- Informed by [employer] that [facility]'s HR [facility] and orders received.1510- Medicated for chest discomfort with Morphine 2 mg IV.1555- Cardizem gtt initiated at 10 ml/hr. States Morphine is effective. Deniespain.1810- HR sustained 140[address]. Sp[address] with Dr[address] Russ, orders received.1820- Cardizem 10 mg IV bolus given and Cardizem gtt increased to 15 ml/hr. Noother changes noted in assessment. Call light within reach.This note was completed by: Diana Romo, INVESTOR RELATIONS ANALYST 12/19/2016 11:27 AM SignedPHARMACY VANCOMYCIN DOSING NOTEPatient Name: Laura Stark Admission Date: 12/15/2016Date of Consult: 12/19/2016 Time of Consult: 11:24 AMIndication: PneumoniaGoal Range: 15-20 mcg/mLRECOMMENDATIONS/PLAN :Pharmacy consulted for vancomycin dosing for Laura Stark, a 61 year old,female who is being treated with vancomycin1. Patient is currently ordered Vancomycin dosed by level. Today is day 5 oftherapy.2. The most recent vancomycin level was 16.1 mcg/mL drawn at 1030 on 12/19. Thisis a 48 hour level on the 5 day of therapy.3. Will schedule vancomycin to 1.5 g with a dosing interval of q24h4. The next vancomycin level will be ordered for 12/21 unless clinicallyindicated sooner. (Pharmacy will order)We will follow patient renal function, vancomycin levels and doses with youduring the course of therapy. Additional recommendations will appear in followup notes. If you have any questions, please contact pharmacy at [phone].Age: 61 year oldAllergies:ALLERGIESAlle rgen Reactions- Clindamycin Hives- Macrodantin [Nitrof* Other: See Comments Off-balance- Percocet [Oxycodone* Other: See Comments Nausea- Sulfa (Sulfonamide * Rash, Itching localized rash and itching all over- Zithromax [Azithrom* Rash, Itching localized rash and itching all over- Zenicef [Other] Rash, Itching itching in mouth; localized rash and itching all overLast 3 Encounter Wt Readings: Date: Wt: 12/15/2016 107.8 kg (237 lb 10.5 oz) 04/12/2016 115.2 kg (254 lb) 10/04/2015 113.4 kg (250 lb)Last 1 Encounter Ht Readings: Date: Ht: 12/15/2016 157.5 cm (5' 2)CrCl: 55.3 mL/minTemp (24hrs), Av.8 ?C (98.3 ?F), Min:36.5 ?C (97.7 ?F), Max:37.2 ?C (99 ?F) - Current Temp: 36.8 ?C (98.2 ?F)LabsBUN (mg/dL)Date Value12/19/2016 37 (H)12/18/2016 44 (H)12/17/2016 35 (H) Creatinine (mg/dL)Date Value12/19/2016 1.22102/18/2016 1.41 (H)12/17/2016 1.22 WBC (k/uL)Date Value12/19/2016 7.5911/05/2016 10.9611 9.21 Vancomycin Levels:Vancomycin, result (ug/mL)Date Value12/19/2016 16.111 37.9 (H) YIMI YUAN, PHARMACY Macario Correa MD 12/19/2016 3:29 PM AddendumReferring Physician: Kiara Mccabe for consultation: HyperthyroidismSubjective: Laura Stark is a 61 year old female 61-year-old female with history ofasthma, PE/DVT and Hypertension presented to the ER with dyspnea.Patient reports that she developed palpitations and SOB last night. She wasfound to have AF with RVRPatient [facility] She has been sickwith pulmonary issues for the past several weeksShe has been treated with antibiotics and steroids.Patient reports that she has been experiencing A.tachycardia for the past 1 yearMentions that thyroid labs have been checked in the past and were also normalFew years ago, she was found to have left thyroid nodule, FNA was benign.Thyroid labs at the time of this hospitalization were consistent with mildhyperthyroidism.Any prior hyperthyroid treatment or symptom control medication: NoRelevant medications (amiodarone, thyroid medications): Amiodarone was startedyesterdayRecent iodine/contrast exposure: yesGeneral symptoms:Fatigue: yes, for the couple weeksWeight change: unintentional weight loss despite being on steroidsAppetite change: decreasedChange in bowel habits: NoTemperature intolerance: heat intoleranceWeakness: yes, generalizedTremor: +Palpitations: yes.REVIEW OF SYSTEMS:GENERAL:Fever - NoChanges in weight - see aboveNEUROLOGICAL:Numbness , tingling or sensation of pins and needles - NoHeadaches-NoHEAD, EYES, EARS, NOSE, AND THROAT:Changes in hearing - NoChanges in vision - NoCARDIOVASCULAR:Chest pain or pressure - NoPalpitations - yesRESPIRATORY:Cough - NoWheezing - NoShortness of breath - NoGASTROINTESTINAL:Abdomin al discomfort - NoNausea - NoVomiting - NoEXTREMITY:Edema (swelling) - NoClaudication-NoMUSCULOSK ELETAL:Muscle pain or ache - NoArthralgia-NoSkin:Rash - NoErythema-NoENDOCRINE:Sheeba betes - NoThyroid disorder - hyperthyroidismPSYCHOLOGIC AL:Depression - NoALLERGIES:ALLERGIESAller gen Reactions- Clindamycin Hives- Macrodantin [Nitrof* Other: See Comments Off-balance- Percocet [Oxycodone* Other: See Comments Nausea- Sulfa (Sulfonamide * Rash, Itching localized rash and itching all over- Zithromax [Azithrom* Rash, Itching localized rash and itching all over- Zenicef [Other] Rash, Itching itching in mouth; localized rash and itching all overMEDICATIONS:No current facility-administered medications on file prior to encounter.No current outpatient prescriptions on file prior to encounter.PAST MEDICAL HISTORY:PAST MEDICAL HISTORYDiagnosis Date- DVT (deep venous thrombosis) (HCC) 1995 Rt lower leg- PE (pulmonary embolism)- Unspecified asthma(493.90)- Unspecified essential hypertensionPAST SURGICAL HISTORY:PAST SURGICAL HISTORYProcedure Laterality Date- APPENDECTOMY- DELIVERY ONLY , low cervical- COLONOSCOP W/ OR W/O [facility] SPEC 01-09-13- DEBRIDE SKIN AND SUBQ TISSU 02-10-12- FILTER PLACEMENT (VENA CAVA) 01-15-13- FNA WITH IMAGING 05/26/11 U/S FNA left thyroid nodule- FREEING BOWEL ADHESION,ENTEROLYSIS 03-24-12- INSER NON-TUNNEL CVC >= 5 YR 03-24-12- LAP INC CY RECUR COMP 01-18-13- PAST SURGICAL HISTORY OF 2003 right ankle surgery-fusion- PAST SURGICAL HISTORY OF 2009 right shoulder partial replacement- REPAIR INCIS HERNIA W MESH 01-31-12- REPAIR INCISIONAL HERNIA,LALO 01-31-12- TOTAL ABDOM HYSTERECTOMY 1996 Hysterectomy, RONN- TRANSCATH RETRIEVAL,PERCUT 02-21-13 FILTER REMOVALFAMILY HISTORY:FAMILY HISTORYProblem Relation Age of Onset- Cancer Father skin- Hypertension Father- Cancer Maternal Grandmother colon- Cancer Paternal Grandfather leukemia- Diabetes Mother- Hypertension Mother- Ischemic Heart Disease Mother- Hypertension Maternal Grandfather- Ischemic Heart Disease Maternal Grandfather- Diabetes Maternal GrandfatherSOCIAL HISTORY:Social History Marital status: Spouse name: Years of education: Number of children:Social History Main Topics Smoking status: Former Smoker Packs/day: 1.00 Years: 20.00 Types: Cigarettes Quit date: 10/29/1995 Alcohol use: No Drug use: NoPHYSICAL EXAM:BP 131/76 Pulse 115 Temp 37 ?C (98.6 ?F) (Oral) Resp 20 Ht 157.5 cm (5'2) Wt 107.8 kg (237 lb 10.5 oz) SpO2 97% BMI 43.47 kg/m2Last 3 Encounter Wt Readings: Date: Wt: 12/15/2016 107.8 kg (237 lb 10.5 oz) 04/12/2016 115.2 kg (254 lb) 10/04/2015 113.4 kg (250 lb)Alert and oriented x3, no acute distressEyes: Anicteric sclera. Pupils are equally round. Extraocular motions intact, noexophthalmos, no lid lagMucous membranes moist, no erythemaNeck supple, no cervical lymphadenopathyThyroid: normal size, normal texture, no palpable nodulesLungs: Breathing unlabored, clear to auscultation. No wheezing, rhonchi, ralesHeart regular rate and rhythm, no murmerAbdomen:Normal abdominal sounds, non tender to palpation, no massesNeuro: Gait normal. Sensation grossly intact. Normal DTR's at patella, + tremorMusculoskeletal: Muscular strength intact, No joint swelling, deformity, ortendernessExtremities non pitting edema B/L LE, Good peripheral pulsesSkin: no rashes/ erythemaLAB:TSHDate Value Ref Range Mgfaki2412/18/2016 0.242 (L) 0.400 - 5.500 uU/mL Final Free T4Date Value Ref Range Tvlhca6612/18/2016 1.9 (H) 0.9 - 1.7 ng/dL Final No results found for: Q0QWFCMBPYZR/PLAN:1) Hyperthyroidism:Likely Graves disease vs toxic nodulePatient presented with new onset A.FibCheck Free T3 and TSIRecently underwent CT with contrast, therefore, will not able to do RAIuptake/scan at this timeObtain a neck US for further evaluationStart Methimazole 5 mg dailyMonitor CBC and hepatic function2) Thyroid nodule:Obtain a thyroid US for further evaluation3) steroid induced hyperglycemia:My recommendation is to start NPH 5 units BID while she is on IV solumedrolContinue Humalog level 1 correction with mealsMonitor accucheck AC/HSNotify Endocrinology if BG > 200 or < 80.Will continue to follow the patient and make further recommendationsaccordingly .Mia Correa MD12/19/16Previous VersionQgeena Russ MD 12/19/2016 2:19 PM SignedPROGRESS NOTE CARDIOLOGY SERVICESERVICE DATE: 12/19/2016SERVICE TIME: 2:09 PMSUBJECTIVEINTERIM HISTORY: Patient has no chest pain but with mild activity she developssignificant SOB or palpitations.MEDICATIONS:[facility] medications:apixaban 5 mg tab(s) (ELIQUIS) 5 mg ORAL BIDvancomycin 1.5 g in D5W 250 mL 1.5 g INTRAVENOUS q 24 HR[START ON 12/20/2016] aspirin, enteric coated 81 mg tab(s) (ASPIRIN, ENTERICCOATED) 81 mg ORAL DAILYmorphine 1-2 mg injection 1-2 mg INTRAVENOUS q 4 H PRNdigoxin 0.25 mg tab(s) (LANOXIN) 0.25 mg ORAL DAILYpolyethylene glycol 3350 17 g packet (MIRALAX, GLYCOLAX) 17 g ORAL DAILYdiltiazem CD 240 mg cap(s) (CARDIZEM CD, CARTIA XT) 240 mg ORAL DAILYmethylPREDNISolone sod succinate(PF) 40 mg injection (Solu-MEDROL) 40 mgINTRAVENOUS q 12 Hondansetron (PF) 4 mg injection (ZOFRAN) 4 mg INTRAVENOUS q 6 H PRNamiodarone 400 mg tab(s) (PACERONE) 400 mg ORAL TID0.9% NaCl 10 mL 10 mL INTRAVENOUS q 12 H0.9% NaCl 20 mL 20 mL INTRAVENOUS PRNcodeine-guaiFENesin 5-10 mL oral liquid (ROBITUSSIN AC) 5-10 mL ORAL q 6 H PRNdextrose 40 % 15 g (INSTA-GLUCOSE) 15 g ORAL PRNglucagon 1 mg injection (GLUCAGEN) 1 mg INTRAMUSCULAR PRNdextrose 50% in water 25 mL syringe 12.5 g INTRAVENOUS PRNinsulin lispro injection (rapid acting) (HumaLOG) SUBCUTANEOUS w MEALSinsulin lispro injection (rapid acting) (HumaLOG) SUBCUTANEOUS AT BEDTIMEHYDROcodone 5 mg - acetaminophen 325 mg tablet (NORCO) 1-2 tablet ORAL q 6 H PRNcefTRIAXone 1 g in sterile water 10 mL (ROCEPHIN) 1 g INTRAVENOUS q 24 Hipratropium-albuterol 3 mL nebulizer solution (DUONEB) 3 mL INHALATION QIDmontelukast 10 mg tab(s) (SINGULAIR) 10 mg ORAL AT BEDTIMEmagnesium oxide 400 mg tab(s) (MAG-OX) 400 mg ORAL DAILYspironolactone 25 mg tab(s) (ALDACTONE) [address] 40 mg tab(s) (PROTONIX) 40 mg ORAL DAILYhydroCHLOROthiazide 25 mg tab(s) (HYDRODIURIL, ESIDRIX) 25 mg ORAL DAILYvancomycin dosing and monitoring per pharmacy OTHER As Directedipratropium-albute rol 3 mL nebulizer solution (DUONEB) 3 mL INHALATION q 2 H PRNguaiFENesin 600 mg ER tab(s) (MUCINEX) 600 mg ORAL q 12 Hiv contrast (radiology procedure) INTRAVENOUS DIRECTED PRNOBJECTIVEPHYSICAL EXAM:Body mass index is 43.47 kg/(m2).Patient Vitals for the past 24 hrs: BP Temp Temp src Pulse Resp SpO2 Xkimcm77/05/17 1145 - - - 115 20 - -12/19/16 1133 131/76 37 ?C (98.6 ?F) Oral 115 18 97 % -12/19/16 1129 - - - 105 20 96 % -12/19/16 0753 - - - 110 18 97 % -12/19/16 0730 137/57 36.8 ?C (98.2 ?F) Oral 80 18 94 % -12/19/16 0538 130/71 36.8 ?C (98.2 ?F) Oral 84 19 95 % -12/19/16 0500 - - - - - - 107.8 kg (237 lb 10.5 oz)12/19/16 0028 - - - 95 20 - -12/19/16 0018 - - - 90 20 97 % -12/18/16 2349 127/85 36.5 ?C (97.7 ?F) Oral (!) 139 19 96 % -12/18/162046 - - - 77 20 - -12/18/162028 - - - 76 20 95 % -12/18/162026 139/62 36.5 ?C (97.7 ?F) Oral 75 19 96 % -12/18/16 1631 137/61 37.1 ?C (98.8 ?F) Oral 85 18 95 % -12/18/16 1608 - - - 88 - - -12/18/16 1554 - - - 88 16 95 % -GENERAL: Pleasant, comfortable, not in acute distress.Awake, alert, oriented times 3.Moves all extremities.SKIN: No rash or lumps.HEENT: Normocephalic, face symmetrical.NECK: Supple, no JVD, no carotid bruit, no thyromegaly.LUNGS: Clear to auscultation bilaterally.CARDIAC: RRR, S1 and S2, no S3 or S4, no additional heart sounds or murmurs.ABDOMEN: Soft, nontender, bowel sounds present. No masses or organomegaly.EXTREMITIES: No edema.PULSES: Peripheral pulses present. dorsalis pedis normal, posterior tibialnormalNEURO: Nonfocal.DATA:Diagnostic tests reviewed for today's visit:Most recent labs and imaging results.Most recent EKGTelemetry reviewed.Past 72 Hour Labs:Recent Labs WBC 7.59RBC 4.19HB 11.3*HCT 35.8*MCV 85.4MCH 27.0MCHC 31.6RDWCV 17.1*PLT 206MPV 9.4GLUC 191*BUN 37*CREAT 1.22NA 136K 3.6CHLOR 96*CO2 25TPROT 6.1ALB 3.7CA 9.6ALKPHOS 69TBILI 0.4AST 14ALT 33Last Lab Drawn:TSH 0.242 12/18/2016ASSESSMENT/PLANPa tient [facility] Problem List: Weakness (12/16/2016) Obesity, Class III, 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 Started on Amiodarone 400mg TID.Consider FERNANDO / DCCVH/O DVT and Pulm Emboli (hypercoagulable state?)Had normal Echo EF 60% and normal SPECT scan at [place] by Chuck recentlyContinue Cardizem 240 mg daily from tomorrow.Can give Digoxin 0.25 mg daily for better rate controlI increased her Pradaxa 150 mg BID as Creatinine is normal today. and she is athigh risk of AF recurrence / Thromboembolic disease. Can D/C LovenoxI discussed risks and benefits and she agrees to monitor closelySIGNATURE: Santos Russ MD PATIENT NAME: Laura StarkDATE: December 19, 2016 : 2:09 PM PAGER/CONTACT #: [phone] Goyal, MD 12/19/2016 3:26 PM SignedINTERNAL MEDICINE PROGRESS NOTEADMITTING PHYSICIAN: Kiara Galloway COMPLAINT: palpitations.Current Facility-Administered Medications:vancomycin 1.5 g in D5W 250 mL 1.5 g INTRAVENOUS q 24 HRdiltiazem 125 mg in D5W 125 mL iv infusion (CARDIZEM) 10 mg/hr INTRAVENOUSCONTINUOUSmorph ine 1-2 mg injection 1-2 mg INTRAVENOUS q 4 H PRNdigoxin 0.25 mg tab(s) (LANOXIN) 0.25 mg ORAL DAILYpolyethylene glycol 3350 17 g packet (MIRALAX, GLYCOLAX) 17 g ORAL DAILYdiltiazem CD 240 mg cap(s) (CARDIZEM CD, CARTIA XT) 240 mg ORAL DAILYmethylPREDNISolone sod succinate(PF) 40 mg injection (Solu-MEDROL) 40 mgINTRAVENOUS q 12 Hondansetron (PF) 4 mg injection (ZOFRAN) 4 mg INTRAVENOUS q 6 H PRNamiodarone 400 mg tab(s) (PACERONE) 400 mg ORAL TID0.9% NaCl 10 mL 10 mL INTRAVENOUS q 12 H0.9% NaCl 20 mL 20 mL INTRAVENOUS PRNcodeine-guaiFENesin 5-10 mL oral liquid (ROBITUSSIN AC) 5-10 mL ORAL q 6 H PRNdextrose 40 % 15 g (INSTA-GLUCOSE) 15 g ORAL PRNOrglucagon 1 mg injection (GLUCAGEN) 1 mg INTRAMUSCULAR PRNOrdextrose 50% in water 25 mL syringe 12.5 g INTRAVENOUS PRNinsulin lispro injection (rapid acting) (HumaLOG) SUBCUTANEOUS w MEALSinsulin lispro injection (rapid acting) (HumaLOG) SUBCUTANEOUS AT BEDTIMEHYDROcodone 5 mg - acetaminophen 325 mg tablet (NORCO) 1-2 tablet ORAL q 6 H PRNcefTRIAXone 1 g in sterile water 10 mL (ROCEPHIN) 1 g INTRAVENOUS q 24 Hipratropium-albuterol 3 mL nebulizer solution (DUONEB) 3 mL INHALATION QIDmontelukast 10 mg tab(s) (SINGULAIR) 10 mg ORAL AT BEDTIMEmagnesium oxide 400 mg tab(s) (MAG-OX) 400 mg ORAL DAILYspironolactone 25 mg tab(s) (ALDACTONE) [address] 40 mg tab(s) (PROTONIX) 40 mg ORAL DAILYhydroCHLOROthiazide 25 mg tab(s) (HYDRODIURIL, ESIDRIX) 25 mg ORAL DAILYvancomycin dosing and monitoring per pharmacy OTHER As Directedipratropium-albute rol 3 mL nebulizer solution (DUONEB) 3 mL INHALATION q 2 H PRNguaiFENesin 600 mg ER tab(s) (MUCINEX) 600 mg ORAL q 12 Hiv contrast (radiology procedure) INTRAVENOUS DIRECTED PRNINTERVAL HISTORY OF PRESENT ILLNESS: Went back in afib again. No n/v/d.No orthopnea, pnd,cpain, fever, chills.Consult notes reviewed.OBJECTIVEPHYSICAL EXAM:Blood pressure 131/76, pulse 115, temperature 37 ?C (98.6 ?F), temperaturesource Oral, resp. rate 20, height 157.5 cm (5' 2), weight 107.8 kg (237 lb10.5 oz), SpO2 97 %.Body mass index is 43.47 kg/(m2).GENERAL: Morbidly Obese, Alert, Mild DistressNECK: SuppleLUNGS: Positive findings: rhonchi bibasilar, wheezing bibasilarCARDIAC: s1s2: irregABDOMEN: Soft, nontenderEXTREMITIES: Extremities normal, no deformities, edema, clubbing or skindiscoloration. Good capillary refill.NEURO: Alert, oriented X 3, Gait normal. Non-focal. Reflexes normal andsymmetric. Sensation grossly intact.PULSES: 2+ radialDATA:Diagnostic tests reviewed for today's visit:Most recent labs and imaging results.ASSESSMENT/PLANAct aravind Problems: Acute Asthma exacerbation with HCAP? recent sputum cx with MRSA and E. coli: Follow repeat cx, continue iv abx and decrease iv steroids. Continue nebs.Pulmonary eval. Add codeine cough syrup, Weakness POA: Yes Assessment AND Plan: due to above. Obesity, Class III, BMI >= 40 (morbid obesity) E66.01 Assessment AND Plan: encourage wt. Loss. Hyperglycemia due to steroids: Add SSI.PAF:Add eliquis,Endo eval for hyperthyroidism,Cardio eval.SIGNATURE: Kiara Nugent MD PATIENT NAME: Laura Stark PAGER/CONTACT #:Sharee Harp, RN, RN 12/20/2016 7:02 AM Addendum Nursing Progress NotePatient Name: Laura StarkMRN: [id number] Location: [place] [id number]___ Daily Note:1945-Pt assessed. No needs at this time. Call light in reach. Reports nochest pain/pressure at this time.2044-Pt given meds. RT in to give neb tx. Pt HR 140 on tele; pt asymptomatic.Will cont. To monitor.2300- No labs ordered for a.m. Note from Dr. Mia Correa stated wants to monitorcbc and hepatic fx, as well as thyroid. Call to Dr. Nugent to obtain lab ordersfor clinician collect in a.m. Phone went silent after asking about lab orders;unsure if call was ended or put on hold.5-Pt request breathing tx. CAll RT for nebulizer. New bag of Cardizem sentfrom pharmacy and hung at 15 mg/hr. Pt HR still in 120-140 range. Continuingto monitor. Will not titrate at this time.0630-Morning labs drawn from PICC. Flushed line w/20cc after draws. Sent tolab via tube system. Pt flipping back to SR. Dr. Nugent called. Left msg thatpt was in SR again and cardizem needed titrated to call back if new ordersneeded. Awaiting return callThis note was completed by: Diana Keith MD 12/20/2016 1:08 PM SignedINTERNAL MEDICINE PROGRESS NOTEADMITTING PHYSICIAN: Kiara SternJECTIVECHIEF COMPLAINT: Feeling better today am, no new complains (more content not included)... Normal [facility] Magnesiumon 12-15-2016 Magnesium 1.9 mg/dL Normal 1.7-2.6 [facility] Comment on above: Performed By: #### C BCDIF, PT, PTT, CMP, MG1 ####[facility] [id number] [place] [phone] PLAN OF CAREon 12-15-2016 PLAN OF CARE HNO ID: [id number] thor: Jo Ann Abdullahi (Pharmacist)Service: PharmacyAuthor Type: PharmacistType: Plan of CareFiled: 12/15/2016 5:51 PMNote Text:MEDICATION HISTORYPatient Name:Chuy StarkMRN: [id number]: 1955Source of history:Patient: Reliability of source: Appears reliable,clearly identified: Medication name, Medication dose, Medication routeand Medication frequencyMedication Nonadherence Identified: No barriers notedThe above information represents the best possible medication history: YesAdditional comments:? Medications removed:? Pyridium? Magnesium hydroxide liquid? Medications adjusted:? Advair Diskus - sig? Albuterol nebulizer - sig? ProAir - sig? Aspirin - formulation and sig? Hydrochlorothiazide - strength and sig? Melatonin - strength and sig? Prilosec - strength and sig? Singulair - sig? Medications added:? Flonase? Cardizem? Tylenol arthritis? Magnesium oxide tablets? Allergy list modifications:? Added localized rash and itching all over to sulfa, Zithromax, andZenicef allergies? Added nausea to Percocet intolerance? Added off-balance to Macrobid intoleranceAllergies: ALLERGIESAllergen Reactions- Clindamycin Hives- Macrodantin [Nitrof* Other: See Comments Off-balance- Percocet [Oxycodone* Other: See Comments Nausea- Sulfa (Sulfonamide * Rash, Itching localized rash and itching all over- Zithromax [Azithrom* Rash, Itching localized rash and itching all over- Zenicef [Other] Rash, Itching itching in mouth; localized rash and itching all overPreferred Pharmacy: [facility] Medications:Prior to Admission medications as of 12/15/16 1746Medication Sig Last Dose Takingfluticasone-salmeter ol (ADVAIR DISKUS) 500-50 mcg/dose dsdv Inhale 1 [place] instructed twice daily. Unknown at Unknown time Yesipratropium-albuterol (DUONEB) 0.5 mg-3 mg(2.5 mg base)/3 mL nebu Inhale 3mL as instructed every 4 hours as needed. Unknown at Unknown time Yesalbuterol (PROVENTIL) 2.5 mg /3 mL (0.083 %) nebulizer solution Use 2.5 mgvia nebulizer every 4 hours as needed. Unknown at Unknown time Yesspironolactone (ALDACTONE) 25 mg tablet Take 25 mg by mouth twice daily.Unknown at Unknown time Yesaspirin, enteric coated (ASPIRIN, ENTERIC COATED) 325 mg EC tablet [id number] mg by mouth once daily. Unknown at Unknown time YeshydroCHLOROthiazide (HYDRODIURIL, ESIDRIX) 25 mg tablet Take 25 mg bymouth once daily. Unknown at Unknown time Yesmagnesium oxide (MAG-OX) 400 mg tablet Take 400 mg by mouth once daily.Unknown at Unknown time Yesmelatonin 3 mg Take 3 mg by mouth daily at bedtime. Unknown at Unknowntime YesOmeprazole (PRILOSEC) 40 mg capsule Take 40 mg by mouth once daily.Unknown at Unknown time Yesmontelukast (SINGULAIR) 10 mg tablet Take 10 mg by mouth daily at bedtime.Unknown at Unknown time Yesfluticasone (FLONASE) 50 mcg/actuation nasal spray Use 1 [place] in eachnostril twice daily. Unknown at Unknown time Yesdiltiazem CD (CARDIZEM CD) 180 mg 24 hr capsule Take 180 mg by mouth oncedaily. Unknown at Unknown time Yesacetaminophen (TYLENOL ARTHRITIS PAIN) 650 mg CR tablet Take 1,300 mg bymouth at bedtime as needed. Unknown at Unknown time Yesalbuterol HFA (PROAIR HFA) 90 mcg/actuation inhaler Inhale 2 Puffs asinstructed every 4 hours as needed. Ana ABDULLAHI PHARMACISTNov2016 5:48 PM Normal [facility] Protimeon 12-15-2016 INR Coag RelTime (Bld) 1.0 {INR} Normal 0.9-1.3 [facility] Comment on above: Result Comment: Regine min K Antagonist (VKA) Therapeutic Range: INR 2 to 3 (Target INR of 2.5)Note: For patients treated with VKA drugs, such as warfarin, the [employer] 2012 Guideline recommends a therapeutic INR range of 2 to 3 (target INR of 2.5). This recommendation includes high-risk patients with antiphospholipid syndrome with previous arterial or venous thromboembolism, current-generation mechanical or bioprosthetic aortic heart valve replacement.Note: Patients with mechanical aortic valve replacement and additional risk factors for thromboembolic events (atrial fibrillation, previous thromboembolism, LV dysfunction, hypercoagulable conditions) or an older generation mechanical AVR (i.e., ball in-Cage) or any mechanical MVR should have a INR therapeutic range of 2.5 to 3.5 (target INR of 3).Nadir GH, et al. Chest 2012, 141:7S-47SNishcara RA, et al. [facility] 2017, 70: 252-289 Performed By: #### C BCDIF, PT, PTT, CMP, MG1 ####[facility] [id number] [phone] PT Sec 10.0 sec Normal 9.7-13.0 [facility] Comment on above: Performed By: #### C BCDIF, PT, PTT, CMP, MG1 ####[facility] [id number] [phone] Sepsis Lactateon 12-15-2016 Sepsis Lactate 1.8 mmol/L Normal 0.5-2.0 [facility] Comment on above: Performed By: #### C BCDIF, PT, PTT, CMP, MG1 ####[facility] [id number] [phone] Troponin Ton 12-15-2016 Troponin T.cardiac mass conc ug/L Normal 0.000-0.02 9 [facility] Comment on above: Performed By: #### T NT ####[facility] [id number] [phone] Bacteria identified Cx Nom ( U) Urine culture Culture exhibits no growth. [facility] Work Phone: Culture, urine Mixed Gram Pos & Gra m Neg Org [facility] Work Phone: Culture, urine Presumptive E. coli W [facility] Work Phone: Bronchoalveolar lavage cultu re with Gram stain Respiratory Culture Pseudomonas aeroginosa [facility] Work Phone: Bronchoalveolar lavage culture with Gram stain Pseudomonas aeroginosa [facility] Work Phone: Culture, urine Bacteria identified Cx Nom (U) Mixed Gram Pos & Gram Neg Org [facility] Work Phone: Bacteria identified Cx Nom (U) Culture exhibits no growth. [facility] Work Phone: Bacteria identified Cx Nom (U) Presumptive E. coli [facility] Work Phone: Gram stain for investigation of transfusion reaction Microscopic observation Gram stain Nom (Unsp spec) [facility] Work Phone: Laboratory - Microbiology an d Antimicrobial susceptibility Bacteria identified Cx Nom (Bld) No growth in 5 days. [facility] Work Phone: No Panel Information Nasal Screen MRSA/MSSA [facility] Work Phone: Respiratory Panel (PCR) [facility] Work Phone: SARS-CoV-2 & FLU Antigen (Rapid) [facility] Work Phone: [phone] No growth in 5 days. [facility] Work Phone: Vital Signs Date Time Vital Sign Value Performing Clinician Faci lity 09-07-2024 21:34-0400 Body temperature 98 [degF] Dr. Moreno Donnelly MD Work Phone: [facility] 09-07-2024 21:34-0400 Diastolic blood pressure 57 mm[Hg] Dr. Moreno Donnelly MD Work Phone: [facility] 09-07-2024 21:34-0400 Heart rate 95 /min Dr. Moreno Donnelly MD Work Phone: [facility] 09-07-2024 21:34-0400 Respiratory rate 18 /min Dr. Moreno Donnelly MD Work Phone: [facility] 09-07-2024 21:34-0400 SaO2% (BldA) [Mass fraction] 99 % Dr. Moreno Donnelly MD Work Phone: [facility] 09-07-2024 21:34-0400 Systolic blood pressure 102 mm[Hg] Dr. Moreno Donnelly MD Work Phone: [facility] 09-07-2024 08:30-0400 Body height 154.[address] Moreno Donnelly MD Work Phone: [facility] 09-07-2024 08:30-0400 Body mass index (BMI) [Ratio] 34.7 kg/m2 Dr. Moreno Donnelly MD Work Phone: [facility] 09-07-2024 08:30-0400 Body weight 83.[address] Moreno Donnelly MD Work Phone: [facility] 09-06-2024 18:25-0400 Body temperature 98.6 [degF] Dr. Moreno Donnelly MD Work Phone: [facility] 09-06-2024 18:25-0400 Diastolic blood pressure 61 mm[Hg] Dr. Moreno Donnelly MD Work Phone: [facility] 09-06-2024 18:25-0400 Heart rate 100 /min Dr. Moreno Donnelly MD Work Phone: [facility] 09-06-2024 18:25-0400 Respiratory rate 15 /min Dr. Moreno Donnelly MD Work Phone: [facility] 09-06-2024 18:25-0400 SaO2% (BldA) [Mass fraction] 100 % Dr. Moreno Donnelly MD Work Phone: 3(040)513-185922 [place] [address] 09-06-2024 18:25-0400 Systolic blood pressure 102 mm[Hg] Dr. Moreno Donnelly MD Work Phone: 9(385)472-652551 [place] [address] 09-06-2024 12:37-0400 Body height 154.[address] Moreno Donnelly MD Work Phone: 0(720)427-013551 [place] [address] 09-05-2024 15:58-0400 Diastolic blood pressure 59 mm[Hg] Dr. Moreno Donnelly MD Work Phone: 0(809)466-744251 [place] [address] 09-05-2024 15:58-0400 Heart rate 88 /min Dr. Moreno Donnelly MD Work Phone: 6(515)214-315651 [place] [address] 09-05-2024 15:58-0400 Respiratory rate 16 /min Dr. Moreno Donnelly MD Work Phone: 7(101)494-041951 [place] [address] 09-05-2024 15:58-0400 Systolic blood pressure 121 mm[Hg] Dr. Moreno Donnelly MD Work Phone: 4(204)181-365522 [place] [address] 09-05-2024 14:33-0400 Body height 154.[address] Moreno Donnelly MD Work Phone: 8(474)859-288551 [place] [address] 09-05-2024 14:33-0400 Body temperature 96.5 [degF] Dr. Moreno Donnelly MD Work Phone: 2(252)892-466451 [place] [address] 09-05-2024 14:33-0400 SaO2% (BldA) [Mass fraction] 98 % Dr. Moreno Donnelly MD Work Phone: 7(714)085-626851 [place] [address] 05-16-2024 08:25-0400 Body mass index (BMI) [Ratio] 35.9 kg/m2 Dr. Moreno Donnelly MD Work Phone: [facility] 05-16-2024 08:25-0400 Body weight 86.[address] Moreno Donnelly MD Work Phone: [facility] 05-16-2024 08:25-0400 Diastolic blood pressure 84 mm[Hg] Dr. Moreno Donnelly MD Work Phone: 3(677)115-753922 [place] [address] 05-16-2024 08:25-0400 Heart rate 85 /min Dr. Moreno Donnelly MD Work Phone: 7(413)652-186122 [place] [address] 05-16-2024 08:25-0400 Respiratory rate 22 /min Dr. Moreno Donnelly MD Work Phone: 2(191)651-634167 [address] 05-16-2024 08:25-0400 SaO2% (BldA) [Mass fraction] 100 % Dr. Moreno Donnelly MD Work Phone: [facility] 05-16-2024 08:25-0400 Systolic blood pressure 128 mm[Hg] Dr. Moreno Donnelly MD Work Phone: 5(066)057-199722 [place] [address] 05-03-2024 10:01-0400 Body height 154.[address] Moreno Donnelly MD Work Phone: 1(612)912-148022 [place] [address] 05-03-2024 10:01-0400 Body mass index (BMI) [Ratio] 35.6 kg/m2 Dr. Moreno Donnelly MD Work Phone: [facility] 05-03-2024 10:01-0400 Body weight 85.[address] Moreno Donnelly MD Work Phone: [facility] 05-01-2024 12:59-0400 Body mass index (BMI) [Ratio] 35.71 kg/m2 Linda Restrepo APRN.CNM Work Phone: [facility] 05-01-2024 12:59-0400 Body weight 85.73 kg Linda Restrepo APRN.CNM Work Phone: [facility] 05-01-2024 12:59-0400 Diastolic blood pressure 68 mm[Hg] Linda Restrepo DRAW IN HAND.CNM Work Phone: [facility] 05-01-2024 12:59-0400 Systolic blood pressure 120 mm[Hg] Linda Restrepo DRAW IN HAND.CNM Work Phone: [facility] 10-03-2023 13:27-0400 Body mass index (BMI) [Ratio] 41.95 kg/m2 Linda Restrepo DRAW IN HAND.CNM Work Phone: [facility] 10-03-2023 13:27-0400 Body weight 100.7 kg Linda Restrepo APRN.CNM Work Phone: [facility] 10-03-2023 13:27-0400 Diastolic blood pressure 74 mm[Hg] Linda Restrepo DRAW IN HAND.CNM Work Phone: [facility] 10-03-2023 13:27-0400 Systolic blood pressure 118 mm[Hg] Linda Restrepo DRAW IN HAND.CNM Work Phone: [facility] 06-14-2023 09:06-0400 Body temperature 96.4 [degF] Dr. Moreno Donnelly Work Phone: [facility] 06-14-2023 09:06-0400 Body weight 108.[address] Moreno Donnelly Work Phone: [facility] 06-14-2023 09:06-0400 Diastolic blood pressure 63 mm[Hg] Dr. Moreno Donnelly Work Phone: [facility] 06-14-2023 09:06-0400 Heart rate 86 /min Dr. Moreno Donnelly Work Phone: [facility] 06-14-2023 09:06-0400 Systolic blood pressure 142 mm[Hg] Dr. Moreno Donnelly Work Phone: [facility] 06-07-2023 10:46-0400 Body mass index (BMI) [Ratio] 102.8 kg/m2 Dr. Moreno Donnelly Work Phone: [facility] 06-07-2023 10:46-0400 Respiratory rate 18 /min Dr. Moreno Donnelly Work Phone: [facility] 05-13-2023 11:21-0400 Body mass index (BMI) [Ratio] 102.8 kg/m2 Dr. Ervin Donnelly Work Phone: [facility] 05-13-2023 11:21-0400 Body temperature 96.3 [degF] Dr. Ervin Donnelly Work Phone: 7(638)796-726822 [place] [address] 05-13-2023 11:21-0400 Diastolic blood pressure 56 mm[Hg] Dr. Ervin Donnelly Work Phone: 1(657)340-291122 [place] [address] 05-13-2023 11:21-0400 Heart rate 85 /min Dr. Ervin Donnelly Work Phone: [facility] 05-13-2023 11:21-0400 Respiratory rate 18 /min Dr. Ervin Donnelly Work Phone: [facility] 05-13-2023 11:21-0400 Systolic blood pressure 149 mm[Hg] Dr. Ervin Donnelly Work Phone: [facility] 05-10-2023 10:07-0400 Body height 154.[address] Ervin Donnelly Work Phone: [facility] 05-10-2023 10:07-0400 Body weight [address] Ervin Donnelly Work Phone: [facility] 03-10-2023 09:53-0500 Body height 154.[address] Ervin Donnelly Work Phone: [facility] 03-10-2023 09:53-0500 Body mass index (BMI) [Ratio] 47 kg/m2 Dr. Ervin Donnelly Work Phone: [facility] 03-10-2023 09:53-0500 Body temperature 97.3 [degF] Dr. Ervin Donnelly Work Phone: [facility] 03-10-2023 09:53-0500 Body weight 113.[address] Ervin Donnelly Work Phone: [facility] 03-10-2023 09:53-0500 Diastolic blood pressure 71 mm[Hg] Dr. Ervin Donnelly Work Phone: [facility] 03-10-2023 09:53-0500 Heart rate 80 /min Dr. Ervin Donnelly Work Phone: [facility] 03-10-2023 09:53-0500 Respiratory rate 18 /min Dr. Ervin Donnelly Work Phone: [facility] 03-10-2023 09:53-0500 SaO2% (BldA) [Mass fraction] 97 % Dr. Ervin Donnelly Work Phone: [facility] 03-10-2023 09:53-0500 Systolic blood pressure 136 mm[Hg] Dr. Ervin Donnelly Work Phone: 4(078)817-663622 [place] [address] 12-10-2022 08:14-0400 Body mass index (BMI) [Ratio] 46.3 kg/m2 Dr. Ervin Donnelly Work Phone: [facility] 12-10-2022 08:14-0400 Body temperature 97.3 [degF] Dr. Ervin Donnelly Work Phone: [facility] 12-10-2022 08:14-0400 Body weight 111.[address] Ervin Donnelly Work Phone: [facility] 12-10-2022 08:14-0400 Diastolic blood pressure 73 mm[Hg] Dr. Ervin Donnelly Work Phone: [facility] 12-10-2022 08:14-0400 Heart rate 93 /min Dr. Ervin Donnelly Work Phone: [facility] 12-10-2022 08:14-0400 Respiratory rate 17 /min Dr. Ervin Donnelly Work Phone: [facility] 12-10-2022 08:14-0400 SaO2% (BldA) [Mass fraction] 96 % Dr. Ervin Donnelly Work Phone: [facility] 12-10-2022 08:14-0400 Systolic blood pressure 139 mm[Hg] Dr. Ervin Donnelly Work Phone: [facility] 12-07-2022 11:12-0400 Body weight 112.49 kg Nunu Oneal MD Work Phone: [facility] 12-07-2022 11:12-0400 Diastolic blood pressure 82 mm[Hg] Nunu Oneal MD Work Phone: [facility] 12-07-2022 11:12-0400 Systolic blood pressure 130 mm[Hg] Nunu Oneal MD Work Phone: [facility] 11-16-2022 09:50-0400 Body mass index (BMI) [Ratio] 47.2 kg/m2 Dr. Ervin Donnelly Work Phone: [facility] 11-16-2022 09:50-0400 Body weight 113.[address] Ervin Donnelly Work Phone: [facility] 11-16-2022 09:50-0400 Diastolic blood pressure 77 mm[Hg] Dr. Ervin Donnelly Work Phone: [facility] 11-16-2022 09:50-0400 Heart rate 74 /min Dr. Ervin Donnelly Work Phone: [facility] 11-16-2022 09:50-0400 Respiratory rate 22 /min Dr. Ervin Donnelly Work Phone: [facility] 11-16-2022 09:50-0400 SaO2% (BldA) [Mass fraction] 98 % Dr. Ervin Donnelly Work Phone: [facility] 11-16-2022 09:50-0400 Systolic blood pressure 121 mm[Hg] Dr. Ervin Donnelly Work Phone: [facility] 10-29-2022 08:36-0400 Body weight 112.58 kg Cassie Sena DRAW IN HAND.DAMPPROOFER Work Phone: [facility] 10-29-2022 08:36-0400 Diastolic blood pressure 60 mm[Hg] Cassie Sena DRAW IN HAND.DAMPPROOFER Work Phone: [facility] 10-29-2022 08:36-0400 Systolic blood pressure 120 mm[Hg] Cassie Milford DRAW IN HAND.DAMPPROOFER Work Phone: [facility] 09-16-2022 10:11-0400 Body height 154.9 cm Keyon Halina DPM Work Phone: [facility] 09-16-2022 10:11-0400 Body weight 107.5 kg Keyon Halina DPM Work Phone: [facility] 09-16-2022 10:11-0400 Respiratory rate 16 /min Keyon Del Angelman DPM Work Phone: [facility] 05-31-2022 09:49-0400 Body height 154.[address] Ervin Donnelly Work Phone: [facility] 05-31-2022 09:49-0400 Body mass index (BMI) [Ratio] 46.6 kg/m2 Dr. Ervin Donnelly Work Phone: [facility] 05-31-2022 09:49-0400 Body weight 112.[address] Ervin Donnelly Work Phone: [facility] 05-31-2022 09:49-0400 Diastolic blood pressure 77 mm[Hg] Dr. Ervin Donnelly Work Phone: [facility] 05-31-2022 09:49-0400 Heart rate 70 /min Dr. Ervin Donnelly Work Phone: [facility] 05-31-2022 09:49-0400 Respiratory rate 20 /min Dr. Ervin Donnelly Work Phone: [facility] 05-31-2022 09:49-0400 SaO2% (BldA) [Mass fraction] 98 % Dr. Ervin Donnelly Work Phone: [facility] 05-31-2022 09:49-0400 Systolic blood pressure 139 mm[Hg] Dr. Ervin Donnelly Work Phone: [facility] 05-27-2022 10:38-0400 Body mass index (BMI) [Ratio] 46 kg/m2 Dr. Ervin Donnelly Work Phone: [facility] 05-27-2022 10:38-0400 Body temperature 96.4 [degF] Dr. Ervin Donnelly Work Phone: [facility] 05-27-2022 10:38-0400 Body weight 110.[address] Ervin Donnelly Work Phone: [facility] 05-27-2022 10:38-0400 Diastolic blood pressure 75 mm[Hg] Dr. Ervin Donnelly Work Phone: [facility] 05-27-2022 10:38-0400 Heart rate 71 /min Dr. Ervin Donnelly Work Phone: [facility] 05-27-2022 10:38-0400 Respiratory rate 20 /min Dr. Ervin Donnelly Work Phone: [facility] 05-27-2022 10:38-0400 SaO2% (BldA) [Mass fraction] 97 % Dr. Ervin Donnelly Work Phone: [facility] 05-27-2022 10:38-0400 Systolic blood pressure 153 mm[Hg] Dr. Ervin Donnelly Work Phone: [facility] 05-08-2022 14:48-0400 Diastolic blood pressure 52 mm[Hg] Dr. Ervin Donnelly Work Phone: [facility] 03-25-2023 14:48-0400 Heart rate 82 /min Dr. Ervin Donnelly Work Phone: [facility] 05-08-2022 14:48-0400 Respiratory rate 20 /min Dr. Ervin Donnelly Work Phone: [facility] 05-08-2022 14:48-0400 Systolic blood pressure 135 mm[Hg] Dr. Ervin Donnelly Work Phone: [facility] 05-08-2022 14:42-0400 SaO2% (BldA) [Mass fraction] 98 % Dr. Ervin Donnelly Work Phone: 1(473)[phone] [address] 05-08-2022 13:14-0400 Body height 154.[address] Ervin Donnelly Work Phone: 3(884)[phone] [address] 05-08-2022 13:14-0400 Body mass index (BMI) [Ratio] 44.4 kg/m2 Dr. Ervin Donnelly Work Phone: 7(763)[phone] [place] [address] 05-08-2022 13:14-0400 Body temperature 98.7 [degF] Dr. Ervin Donnelly Work Phone: 9(117)[phone] [place] [address] 05-08-2022 13:14-0400 Body weight 106.[address] Ervin Donnelly Work Phone: 4(524)[phone] [address] 03-01-2022 10:39-0500 Body height 154.[address] Ervin Donnelly Work Phone: 4(557)[phone] [place] [address] 03-01-2022 10:39-0500 Body mass index (BMI) [Ratio] 45.2 kg/m2 Dr. Ervin Donnelly Work Phone: 2(287)[phone] [place] [address] 03-01-2022 10:39-0500 Body temperature 98 [degF] Dr. Ervin Donnelly Work Phone: 4(894)[phone] [address] 03-01-2022 10:39-0500 Body weight 108.[address] Ervin Donnelly Work Phone: 2(769)576-189122 [place] [address] 03-01-2022 10:39-0500 Diastolic blood pressure 91 mm[Hg] Dr. Ervin Donnelly Work Phone: [facility] 03-01-2022 10:39-0500 Heart rate 81 /min Dr. Ervin Donnelly Work Phone: [facility] 03-01-2022 10:39-0500 Respiratory rate 18 /min Dr. Ervin Donnelly Work Phone: [facility] 03-01-2022 10:39-0500 SaO2% (BldA) [Mass fraction] 99 % Dr. Ervin Donnelly Work Phone: [facility] 03-01-2022 10:39-0500 Systolic blood pressure 130 mm[Hg] Dr. Ervin Donnelly Work Phone: [facility] 01-12-2022 11:12-0500 Body weight 107.5 kg Linda Restrepo APRN.CNM Work Phone: [facility] 01-12-2022 11:12-0500 Diastolic blood pressure 80 mm[Hg] Linda Restrepo DRAW IN HAND.CNM Work Phone: [facility] 01-12-2022 11:12-0500 Systolic blood pressure 132 mm[Hg] Linda Restrepo DRAW IN HAND.CNM Work Phone: [facility] 01-08-2022 08:23-0500 Diastolic blood pressure 76 mm[Hg] Linda Restrepo DRAW IN HAND.CNM Work Phone: [facility] 01-08-2022 08:23-0500 Systolic blood pressure 162 mm[Hg] Linda Restrepo DRAW IN HAND.CNM Work Phone: [facility] 12-23-2021 10:47-0500 Body weight 106.96 kg Linda Restrepo APRN.CNM Work Phone: [facility] 12-23-2021 10:47-0500 Diastolic blood pressure 78 mm[Hg] Linda Restrepo DRAW IN HAND.CNM Work Phone: [facility] 12-23-2021 10:47-0500 Systolic blood pressure 144 mm[Hg] Linda Restrepo APRN.CNM Work Phone: [facility] 12-03-2021 13:01-0400 Body height 154.[address] Ervin Donnelly Work Phone: [facility] Work Phone: 12-03-2021 13:01-0400 Body mass index (BMI) [Ratio] 43.8 kg/m2 Dr. Ervin Donnelly Work Phone: [facility] Work Phone: 12-03-2021 13:01-0400 Body weight 105.[address] Ervin Donnelly Work Phone: [facility] Work Phone: 12-03-2021 13:01-0400 Diastolic blood pressure 68 mm[Hg] Dr. Ervin Donnelly Work Phone: [facility] Work Phone: 12-03-2021 13:01-0400 Heart rate 84 /min Dr. Ervin Donnelly Work Phone: [facility] Work Phone: 12-03-2021 13:01-0400 Respiratory rate 16 /min Dr. Ervin Donnelly Work Phone: [facility] Work Phone: 12-03-2021 13:01-0400 Systolic blood pressure 120 mm[Hg] Dr. Ervin Donnelly Work Phone: [facility] Work Phone: 09-12-2021 16:20-0400 Body temperature 99.7 [degF] Dr. Ervin Donnelly Work Phone: [facility] Work Phone: 09-12-2021 16:20-0400 Diastolic blood pressure 78 mm[Hg] Dr. Ervin Donnelly Work Phone: [facility] Work Phone: 09-12-2021 16:20-0400 Heart rate 88 /min Dr. Ervin Donnelly Work Phone: [facility] Work Phone: 09-12-2021 16:20-0400 Respiratory rate 18 /min Dr. Ervin Donnelly Work Phone: [facility] Work Phone: 09-12-2021 16:20-0400 SaO2% (BldA) [Mass fraction] 99 % Dr. Ervin Donnelly Work Phone: [facility] Work Phone: 09-12-2021 16:20-0400 Systolic blood pressure 134 mm[Hg] Dr. Ervin Donnelly Work Phone: [facility] Work Phone: 09-12-2021 12:07-0400 Body height 154.[address] Ervin Donnelly Work Phone: [facility] Work Phone: 09-12-2021 12:07-0400 Body mass index (BMI) [Ratio] 43.4 kg/m2 Dr. Ervin Donnelly Work Phone: [facility] Work Phone: 09-12-2021 12:07-0400 Body weight 104.[address] Ervin Donnelly Work Phone: [facility] Work Phone: 09-12-2021 11:25-0400 Body temperature 102 [degF] Merrill Chaves MD Work Phone: [facility] 09-12-2021 11:25-0400 Body weight 107.05 kg Merrill Chaves MD Work Phone: [facility] 09-12-2021 11:25-0400 Diastolic blood pressure 86 mm[Hg] Merrill Chaves MD Work Phone: [facility] 09-12-2021 11:25-0400 Heart rate 103 /min Merrill Chaves MD Work Phone: [facility] 09-12-2021 11:25-0400 Respiratory rate 20 /min Merrill Chaves MD Work Phone: [facility] 09-12-2021 11:25-0400 SaO2% (BldA) [Mass fraction] 98 % Merrill Chaves MD Work Phone: [facility] 09-12-2021 11:25-0400 Systolic blood pressure 126 mm[Hg] Merrill Chaves MD Work Phone: [facility] 09-09-2021 10:22-0400 Body temperature 97.8 [degF] Dr. Ervin Donnelly Work Phone: [facility] Work Phone: 09-09-2021 10:22-0400 Diastolic blood pressure 69 mm[Hg] Dr. Ervin Donnelly Work Phone: [facility] Work Phone: 09-09-2021 10:22-0400 Heart rate 89 /min Dr. Ervin Donnelly Work Phone: [facility] Work Phone: 09-09-2021 10:22-0400 Systolic blood pressure 134 mm[Hg] Dr. Ervin Donnelly Work Phone: [facility] Work Phone: 09-02-2021 10:13-0400 Respiratory rate 16 /min Dr. Ervin Donnelly Work Phone: [facility] Work Phone: 08-03-2021 13:13-0400 Body height 154.[address] Ervin Donnelly Work Phone: [facility] Work Phone: 08-03-2021 13:13-0400 Body mass index (BMI) [Ratio] 42.7 kg/m2 Dr. Ervin Donnelly Work Phone: [facility] Work Phone: 08-03-2021 13:13-0400 Body weight 102.[address] Ervin Donnelly Work Phone: [facility] Work Phone: 08-03-2021 12:06-0400 Body temperature 98.6 [degF] Dr. Ervin Donnelly Work Phone: [facility] Work Phone: 08-03-2021 12:06-0400 Diastolic blood pressure 68 mm[Hg] Dr. Ervin Donnelly Work Phone: [facility] Work Phone: 08-03-2021 12:06-0400 Heart rate 88 /min Dr. Ervin Donnelly Work Phone: [facility] Work Phone: 08-03-2021 12:06-0400 Respiratory rate 16 /min Dr. Ervin Donnelly Work Phone: [facility] Work Phone: 08-03-2021 12:06-0400 SaO2% (BldA) [Mass fraction] 97 % Dr. Ervin Donnelly Work Phone: [facility] Work Phone: 08-03-2021 12:06-0400 Systolic blood pressure 117 mm[Hg] Dr. Ervin Donnelly Work Phone: [facility] Work Phone: 07-15-2021 06:51-0400 Heart rate 73 /min Dr. Ervin Donnelly Work Phone: [facility] Work Phone: 07-15-2021 06:51-0400 Respiratory rate 18 /min Dr. Ervin Donnelly Work Phone: [facility] Work Phone: 07-15-2021 06:35-0400 Body temperature 97.4 [degF] Dr. Ervin Donnelly Work Phone: [facility] Work Phone: 07-15-2021 06:35-0400 Diastolic blood pressure 58 mm[Hg] Dr. Ervin Donnelly Work Phone: [facility] Work Phone: 07-15-2021 06:35-0400 SaO2% (BldA) [Mass fraction] 98 % Dr. Ervin Donnelly Work Phone: [facility] Work Phone: 07-15-2021 06:35-0400 Systolic blood pressure 112 mm[Hg] Dr. Ervin Donnelly Work Phone: [facility] Work Phone: 07-14-2021 14:33-0400 Body weight 99.[address] Ervin Donnelly Work Phone: [facility] Work Phone: 07-14-2021 13:00-0400 Respiratory rate 18 /min Dr. Ervin Donnelly Work Phone: [facility] Work Phone: 07-14-2021 10:58-0400 Body temperature 98.5 [degF] Dr. Ervin Donnelly Work Phone: [facility] Work Phone: 07-14-2021 10:58-0400 Heart rate 106 /min Dr. Ervin Donnelly Work Phone: [facility] Work Phone: 07-14-2021 10:58-0400 SaO2% (BldA) [Mass fraction] 95 % Dr. Ervin Donnelly Work Phone: [facility] Work Phone: 07-13-2021 13:43-0400 Diastolic blood pressure 63 mm[Hg] Dr. Ervin Donnelly Work Phone: [facility] Work Phone: 07-13-2021 13:43-0400 Systolic blood pressure 110 mm[Hg] Dr. Ervin Donnelly Work Phone: [facility] Work Phone: 07-08-2021 10:55-0400 Body height 154.[address] Ervin Donnelly Work Phone: [facility] Work Phone: 07-08-2021 10:55-0400 Body weight 102.[address] Ervin Donnelly Work Phone: [facility] Work Phone: 07-08-2021 07:06-0400 Body temperature 97.5 [degF] Dr. Ervin Donnelly Work Phone: [facility] Work Phone: 07-08-2021 07:06-0400 Diastolic blood pressure 52 mm[Hg] Dr. Ervin Donnelly Work Phone: [facility] Work Phone: 07-08-2021 07:06-0400 Heart rate 92 /min Dr. Ervin Donnelly Work Phone: [facility] Work Phone: 07-08-2021 07:06-0400 Respiratory rate 16 /min Dr. Ervin Donnelly Work Phone: [facility] Work Phone: 07-08-2021 07:06-0400 SaO2% (BldA) [Mass fraction] 96 % Dr. Ervin Donnelly Work Phone: [facility] Work Phone: 07-08-2021 07:06-0400 Systolic blood pressure 109 mm[Hg] Dr. Ervin Donenlly Work Phone: [facility] Work Phone: 07-06-2021 16:10-0400 Body mass index (BMI) [Ratio] 42.7 kg/m2 Dr. Ervin Donnelly Work Phone: [facility] Work Phone: 07-06-2021 13:20-0400 Body temperature 98.4 [degF] Dr. Ervin Donnelly Work Phone: [facility] Work Phone: 07-06-2021 13:20-0400 Diastolic blood pressure 66 mm[Hg] Dr. Ervin Donnelly Work Phone: [facility] Work Phone: 07-06-2021 13:20-0400 Heart rate 90 /min Dr. Ervin Donnelly Work Phone: [facility] Work Phone: 07-06-2021 13:20-0400 Respiratory rate 16 /min Dr. Ervin Donnelly Work Phone: [facility] Work Phone: 07-06-2021 13:20-0400 SaO2% (BldA) [Mass fraction] 99 % Dr. Ervin Donnelly Work Phone: [facility] Work Phone: 07-06-2021 13:20-0400 Systolic blood pressure 143 mm[Hg] Dr. Ervin Donnelly Work Phone: [facility] Work Phone: 07-06-2021 12:22-0400 Body weight 102.[address] Ervin Donnelly Work Phone: [facility] Work Phone: 07-04-2021 23:11-0400 Heart rate 86 /min Dr. Ervin Donnelly Work Phone: [facility] Work Phone: 07-04-2021 21:36-0400 Body temperature 98.7 [degF] Dr. Ervin Donnelly Work Phone: [facility] Work Phone: 07-04-2021 21:36-0400 Diastolic blood pressure 56 mm[Hg] Dr. Ervin Donnelly Work Phone: [facility] Work Phone: 07-04-2021 21:36-0400 Respiratory rate 18 /min Dr. Ervin Donnelly Work Phone: [facility] Work Phone: 07-04-2021 21:36-0400 SaO2% (BldA) [Mass fraction] 99 % Dr. Ervin Donnelly Work Phone: [facility] Work Phone: 07-04-2021 21:36-0400 Systolic blood pressure 105 mm[Hg] Dr. Ervin Donnelly Work Phone: [facility] Work Phone: 07-04-2021 09:57-0400 Body height 154.[address] Ervin Donnelly Work Phone: [facility] Work Phone: 07-04-2021 09:57-0400 Body mass index (BMI) [Ratio] 42.7 kg/m2 Dr. Ervin Donnelly Work Phone: [facility] Work Phone: 07-04-2021 09:57-0400 Body weight 102.[address] Ervin Donnelly Work Phone: [facility] Work Phone: 07-04-2021 07:17-0400 Body temperature 102.2 [degF] Dr. Ervin Donnelly Work Phone: [facility] Work Phone: 07-04-2021 06:00-0400 Diastolic blood pressure 58 mm[Hg] Dr. Ervin Donnelly Work Phone: [facility] Work Phone: 07-04-2021 06:00-0400 Heart rate 105 /min Dr. Ervin Donnelly Work Phone: [facility] Work Phone: 07-04-2021 06:00-0400 Respiratory rate 20 /min Dr. Ervin Donnelly Work Phone: [facility] Work Phone: 07-04-2021 06:00-0400 SaO2% (BldA) [Mass fraction] 94 % Dr. Ervin Donnelly Work Phone: [facility] Work Phone: 07-04-2021 06:00-0400 Systolic blood pressure 118 mm[Hg] Dr. Ervin Donnelly Work Phone: [facility] Work Phone: 07-04-2021 02:22-0400 Heart rate 90 /min Dr. Ervin Donnelly Work Phone: [facility] Work Phone: 07-04-2021 02:22-0400 Respiratory rate 16 /min Dr. Ervin Donnelly Work Phone: [facility] Work Phone: 07-04-2021 02:22-0400 SaO2% (BldA) [Mass fraction] 98 % Dr. Ervin Donnelly Work Phone: [facility] Work Phone: 07-04-2021 01:24-0400 Diastolic blood pressure 54 mm[Hg] Dr. Ervin Donnelly Work Phone: [facility] Work Phone: 07-04-2021 01:24-0400 Systolic blood pressure 108 mm[Hg] Dr. Ervin Donnelly Work Phone: [facility] Work Phone: 07-04-2021 01:10-0400 Body temperature 98.5 [degF] Dr. Ervin Donnelly Work Phone: [facility] Work Phone: 07-03-2021 23:39-0400 Body height 154.[address] Ervin Donnelly Work Phone: [facility] Work Phone: 07-03-2021 23:39-0400 Body mass index (BMI) [Ratio] 43.8 kg/m2 Dr. Ervin Donnelly Work Phone: [facility] Work Phone: 07-03-2021 23:39-0400 Body weight 105.[address] Ervin Donnelly Work Phone: [facility] Work Phone: 07-03-2021 22:45-0400 Body temperature 103.6 [degF] Dr. Ervin Donnelly Work Phone: [facility] Work Phone: 07-03-2021 22:45-0400 Diastolic blood pressure 55 mm[Hg] Dr. Ervin Donnelly Work Phone: [facility] Work Phone: 07-03-2021 22:45-0400 Heart rate 102 /min Dr. Ervin Donnelly Work Phone: [facility] Work Phone: 07-03-2021 22:45-0400 Respiratory rate 20 /min Dr. Ervin oDnnelly Work Phone: [facility] Work Phone: 07-03-2021 22:45-0400 SaO2% (BldA) [Mass fraction] 100 % Dr. Ervin Donnelly Work Phone: [facility] Work Phone: 07-03-2021 22:45-0400 Systolic blood pressure 119 mm[Hg] Dr. Ervin Donnelly Work Phone: [facility] Work Phone: 07-01-2021 11:15-0400 Body weight 105.[address] Ervin Donnelly Work Phone: [facility] Work Phone: 06-26-2021 15:38-0400 Body mass index (BMI) [Ratio] 45.6 kg/m2 Dr. Ervin Donnelly Work Phone: [facility] Work Phone: 06-26-2021 14:09-0400 Body temperature 99.8 [degF] Dr. Ervin Donnelly Work Phone: [facility] Work Phone: 06-26-2021 14:09-0400 Diastolic blood pressure 52 mm[Hg] Dr. Ervin Donnelly Work Phone: [facility] Work Phone: 06-26-2021 14:09-0400 Heart rate 92 /min Dr. Ervin Donnelly Work Phone: [facility] Work Phone: 06-26-2021 14:09-0400 Respiratory rate 16 /min Dr. Ervin Donnelly Work Phone: [facility] Work Phone: 06-26-2021 14:09-0400 SaO2% (BldA) [Mass fraction] 96 % Dr. Ervin Donnelly Work Phone: [facility] Work Phone: 06-26-2021 14:09-0400 Systolic blood pressure 96 mm[Hg] Dr. Ervin Donnelly Work Phone: [facility] Work Phone: 06-24-2021 16:44-0400 Inhaled oxygen flow rate 2 L/min Dr. Ervin Donnelly Work Phone: [facility] Work Phone: 06-24-2021 15:44-0400 Body height 154.[address] Ervin Donnelly Work Phone: [facility] Work Phone: 06-24-2021 15:44-0400 Body mass index (BMI) [Ratio] 44.5 kg/m2 Dr. Ervin Donnelly Work Phone: [facility] Work Phone: 06-24-2021 15:44-0400 Body weight [address] Ervin Donnelly Work Phone: [facility] Work Phone: 06-22-2021 15:32-0400 Body weight 106.[address] Ervin Donnelly Work Phone: [facility] Work Phone: 05-22-2021 09:05-0400 Body mass index (BMI) [Ratio] 43.4 kg/m2 Dr. Ervin Donnelly Work Phone: [facility] Work Phone: 05-22-2021 09:05-0400 Body temperature 97.8 [degF] Dr. Ervin Donnelly Work Phone: [facility] Work Phone: 05-22-2021 09:05-0400 Body weight 104.[address] Ervin Donnelly Work Phone: [facility] Work Phone: 05-22-2021 09:05-0400 Diastolic blood pressure 77 mm[Hg] Dr. Ervin Donnelly Work Phone: [facility] Work Phone: 05-22-2021 09:05-0400 Heart rate 86 /min Dr. Ervin Donnelly Work Phone: [facility] Work Phone: 05-22-2021 09:05-0400 Respiratory rate 19 /min Dr. Ervin Donnelly Work Phone: [facility] Work Phone: 05-22-2021 09:05-0400 SaO2% (BldA) [Mass fraction] 97 % Dr. Ervin Donnelly Work Phone: [facility] Work Phone: 05-22-2021 09:05-0400 Systolic blood pressure 135 mm[Hg] Dr. Ervin Donnelly Work Phone: [facility] Work Phone: 05-22-2021 09:05-0400 Body mass index (BMI) [Ratio] 43.4 kg/m2 Dr. Ervin Donnelly Work Phone: [facility] Work Phone: 05-22-2021 09:05-0400 Body temperature 97.8 [degF] Dr. Ervin Donnelly Work Phone: [facility] Work Phone: 05-22-2021 09:05-0400 Body weight 104.[address] Ervin Donnelly Work Phone: [facility] Work Phone: 05-22-2021 09:05-0400 Diastolic blood pressure 77 mm[Hg] Dr. Ervin Donnelly Work Phone: [facility] Work Phone: 05-22-2021 09:05-0400 Heart rate 86 /min Dr. Ervin Donnelly Work Phone: [facility] Work Phone: 05-22-2021 09:05-0400 Respiratory rate 19 /min Dr. Ervin Donnelly Work Phone: [facility] Work Phone: 05-22-2021 09:05-0400 SaO2% (BldA) [Mass fraction] 97 % Dr. Ervin Donnelly Work Phone: [facility] Work Phone: 05-22-2021 09:05-0400 Systolic blood pressure 135 mm[Hg] Dr. Ervin Donnelly Work Phone: [facility] Work Phone: 05-12-2021 21:09-0400 Diastolic blood pressure 63 mm[Hg] Dr. Ervin Donnelly Work Phone: [facility] Work Phone: 05-12-2021 21:09-0400 Heart rate 78 /min Dr. Ervin Donnelly Work Phone: [facility] Work Phone: 05-12-2021 21:09-0400 Respiratory rate 18 /min Dr. Ervin Donnelly Work Phone: [facility] Work Phone: 05-12-2021 21:09-0400 SaO2% (BldA) [Mass fraction] 95 % Dr. Ervin Donnelly Work Phone: [facility] Work Phone: 05-12-2021 21:09-0400 Systolic blood pressure 121 mm[Hg] Dr. Ervin Donnelly Work Phone: [facility] Work Phone: 05-12-2021 19:20-0400 Body temperature 98.7 [degF] Dr. Ervin Donnelly Work Phone: [facility] Work Phone: 05-12-2021 15:02-0400 Body height 154.[address] Ervin Donnelly Work Phone: [facility] Work Phone: 05-12-2021 15:02-0400 Body mass index (BMI) [Ratio] 43.4 kg/m2 Dr. Ervin Donnelly Work Phone: [facility] Work Phone: 05-12-2021 15:02-0400 Body weight 104.[address] Ervin Donnelly Work Phone: [facility] Work Phone: 04-14-2021 11:17-0500 Body weight 104.[address] Ervin Donnelly Work Phone: [facility] Work Phone: 04-14-2021 10:17-0500 Body weight 104.[address] Ervin Donnelly Work Phone: [facility] Work Phone: 04-01-2021 10:11-0500 Body mass index (BMI) [Ratio] 44 kg/m2 Dr. Ervin Donnelly Work Phone: [facility] Work Phone: 04-01-2021 10:11-0500 Body temperature 99.3 [degF] Dr. Ervin Donnelly Work Phone: [facility] Work Phone: 04-01-2021 10:11-0500 Body weight 105.[address] Ervin Donnelly Work Phone: [facility] Work Phone: 04-01-2021 10:11-0500 Diastolic blood pressure 75 mm[Hg] Dr. Ervin Donnelly Work Phone: [facility] Work Phone: 04-01-2021 10:11-0500 Heart rate 87 /min Dr. Ervin Donnelly Work Phone: [facility] Work Phone: 04-01-2021 10:11-0500 Respiratory rate 16 /min Dr. Ervin Donnelly Work Phone: [facility] Work Phone: 04-01-2021 10:11-0500 SaO2% (BldA) [Mass fraction] 97 % Dr. Ervin Donnelly Work Phone: [facility] Work Phone: 04-01-2021 10:11-0500 Systolic blood pressure 146 mm[Hg] Dr. Ervin Donnelly Work Phone: [facility] Work Phone: 03-25-2021 10:22-0500 Body mass index (BMI) [Ratio] 43.8 kg/m2 Dr. Ervin Donnelly Work Phone: [facility] Work Phone: 03-25-2021 10:22-0500 Body weight 105.[address] Ervin Donnelly Work Phone: [facility] Work Phone: 03-25-2021 10:22-0500 Diastolic blood pressure 78 mm[Hg] Dr. Ervin Donnelly Work Phone: [facility] Work Phone: 03-25-2021 10:22-0500 Heart rate 80 /min Dr. Ervin Donnelly Work Phone: [facility] Work Phone: 03-25-2021 10:22-0500 Respiratory rate 6 /min Dr. Ervin Donnelly Work Phone: [facility] Work Phone: 03-25-2021 10:22-0500 Systolic blood pressure 146 mm[Hg] Dr. Ervin Donnelly Work Phone: [facility] Work Phone: 03-25-2021 10:03-0500 Body weight 105.[address] Ervin Donnelly Work Phone: [facility] Work Phone: 03-04-2021 13:12-0500 Body weight 107.[address] Ervin Donnelly Work Phone: [facility] Work Phone: 02-09-2021 11:20-0500 Body weight 109.[address] Ervin Donnelly Work Phone: [facility] Work Phone: Encounters Encounter Date Encounter Type Care Provider Facility Start: 09-12-2024 ambulatory Peter V Sibilia Facili ty:[facility] Start: 09-11-2024 ambulatory Peter V Sibilia Facili ty:[facility] Start: 09-10-2024 ambulatory Peter V Sibilia Facili ty:[facility] Start: 09-09-2024 ambulatory Peter V Sibilia Facili ty:[facility] Start: 09-08-2024 ambulatory Peter V Sibilia Facili ty:[facility] Start: 09-07-2024 End: 09-07-2024 ambulatory Peter V Sibilia Facility:[facility] Start: 09-07-2024 End: 09-07-2024 Dr. Peter Ambrocio MD -Medical Out Work Phone: Start: 09-06-2024 ambulatory Peter V Sibilia Facili ty:[facility] Start: 09-06-2024 End: 09-06-2024 Dr. Moreno Donnelly MD Work Phone: -Emergency Department Work Phone: Start: 09-06-2024 End: 09-06-2024 Emergency department patient visit Dr. Moreno Donnelly MD Work Phone: -Emergency Department Start: 09-05-2024 End: 09-05-2024 Dr. Peter Ambrocio MD -Medical Out Work Phone: Start: 09-05-2024 End: 09-05-[address] Moreno Donnelly MD Work Phone: -Medical Out Start: 09-05-2024 Dr. Ervin Donnelly MD -Laboratory [place] Work Phone: Start: 09-05-2024 [facility] Start: 08-23-2024 End: 08-23-[address] Moreno Donnelly MD Work Phone: -Laboratory [place] Start: 08-23-2024 End: 08-23-2024 Dr. Peter Ambrocio MD -Laboratory Specim en Work Phone: Start: 08-22-2024 End: 08-23-[address] Moreno Donnelly MD Work Phone: -Outpatient Bone Densitometry Start: 08-22-2024 End: 08-22-2024 Dr. Moreno Donnelly MD -Outpatient Bone Densitometry Work Phone: Start: 08-22-2024 End: 08-22-2024 ambulatory Moreno Donnelly Facility:[facility] Start: 08-02-2024 End: 08-02-[address] Moreno Donnelly MD Work Phone: [facility] Work Phone: Start: 08-02-2024 End: 08-02-2024 Dr. Peter Ambrocio MD -Radiology [facility] Work Phone: Start: 08-02-2024 End: 08-02-2024 ambulatory Moreno Donnelly Facility:[facility] Start: 07-25-2024 End: 07-25-[address] Moreno Donnelly MD Work Phone: [facility] Work Phone: Start: 07-25-2024 End: 07-25-2024 Dr. Moreno Donnelly MD -Laboratory [facility] Start: 07-25-2024 End: 07-25-2024 ambulatory Moreno Donnelly Facility:[facility] Start: 07-19-2024 End: 07-19-[address] Moreno Donnelly MD Work Phone: [facility] Work Phone: Start: 07-19-2024 End: 07-19-2024 Dr. Moreno Donnelly MD -Cardiovascular Services Work Phone: Start: 07-19-2024 End: 07-19-2024 ambulatory Moreno Donnelly Facility:[facility] Start: 07-05-2024 End: 07-05-[address] Moreno Donnelly MD Work Phone: [facility] Work Phone: Start: 07-05-2024 End: 07-05-2024 Jeanie Arteaga FANS CLERK-C -Radiology [place] Work Phone: Start: 07-05-2024 End: 07-05-2024 ambulatory Jeanie Arteaga NP Facility:[facility] Start: 06-14-2024 End: 06-14-2024 ambulatory Benigno Suárez Facility:[facility] Start: 06-14-2024 End: 06-14-2024 Dr. Benigno Suárez MD -Physical Therapy Work Phone: Start: 05-29-2024 Dr. Benigno Suárez MD -Ph ysical Therapy Work Phone: Start: 05-23-2024 End: 05-23-[address] Moreno Donnelly MD Work Phone: [facility] Work Phone: Start: 05-23-2024 End: 05-23-2024 Filemon RED -Pulmonary Services/Neurology Work Phone: Start: 05-23-2024 End: 05-23-2024 ambulatory Filemon Danielle Facility:[facility] Start: 05-16-2024 End: 05-16-2024 Filemon Danielle PA -[facility] Work Phone: Start: 05-16-2024 End: 05-16-2024 ambulatory Filemon Danielle Facility:[facility] Start: 05-10-2024 End: 05-10-2024 Dr. Moreno Donnelly MD -Laboratory, [place] Work Phone: Start: 05-10-2024 End: 05-10-2024 ambulatory oMreno Donnelly Facility:[facility] Start: 05-03-2024 End: 05-03-2024 Dr. Benigno Suárez MD -[facility] Work Phone: Start: 05-03-2024 End: 05-03-2024 ambulatory Benigno Suárez Facility:[facility] Start: 05-01-2024 End: 05-01-2024 ambulatory LINDA RESTREPO Facility:[facility] Start: 05-01-2024 End: 05-01-2024 Patient encounter procedure Linda Aditya DRAW IN HAND.CNM Work Phone: OB/Gynecology Comment on above: Epidermal inclusion cyst (Primary Dx) Start: 04-24-2024 End: 04-24-2024 Dr. Moreno Donnelly MD -Laboratory, [facility] Start: 04-24-2024 End: 04-24-2024 ambulatory [facility] [place] Facility:[facility] Start: 04-21-2024 End: 04-21-2024 Dr. Peter Ambrocio MD -Laboratory Work Phone: Start: 04-21-2024 End: 04-21-2024 ambulatory [facility] [place] Facility:[facility] Start: 04-20-2024 End: 04-20-2024 Dr. Peter Ambrocio MD -Laboratory, Speci men Work Phone: Start: 04-20-2024 End: 04-20-2024 [facility] Facility:[facility] Start: 04-19-2024 End: 04-19-2024 Dr. Peter Ambrocio MD -Laboratory, Speci men Work Phone: Start: 04-19-2024 End: 04-19-2024 ambulatory [facility] [place] Facility:[facility] Start: 04-18-2024 End: 04-18-2024 Dr. Peter Ambrocio MD -Laboratory Work Phone: Start: 04-18-2024 End: 04-18-2024 ambulatory [facility] [place] Facility:[facility] Start: 04-11-2024 End: 04-11-2024 Jeanie Arteaga NP-C -Laboratory, Specime n Work Phone: Start: 04-11-2024 End: 04-11-2024 ambulatory Jeanie Arteaga FANS CLERK Facility:[facility] Start: 03-26-2024 End: 03-26-2024 Dr. Moreno Donnelly MD -[facility] Work Phone: Start: 03-26-2024 End: 03-26-2024 ambulatory Moreno Donnelly Facility:[facility] Start: 03-08-2024 End: 03-08-2024 Dr. Moreno Donnelly MD -Laboratory, [facility] Start: 03-08-2024 End: 03-08-2024 ambulatory Moreno Donnelly Facility:[facility] Start: 02-23-2024 End: 02-23-2024 Dr. Moreno Donnelly MD -Laboratory, [facility] Start: 02-23-2024 End: 02-23-2024 ambulatory Moreno Donnelly Facility:[facility] Start: 02-13-2024 End: 02-13-2024 Dr. Moreno Donnelly MD -Laboratory, [place] Work Phone: Start: 02-13-2024 End: 02-13-2024 ambulatory Moreno Donnelly Facility:[facility] Start: 02-09-2024 End: 02-09-2024 Jan Davenport FANS CLERK-C -Laboratory, [facility] Start: 02-09-2024 ambulatory Indu Granados [facility] Start: 02-09-2024 End: 02-09-2024 ambulatory Jan Davenport NP Facility:[facility] Start: 01-26-2024 ambulatory Joo Higuera [facility] Start: 01-26-2024 End: 01-28-2024 Evaluation and management of inpatient Moreno Donnelly Facility:[facility] Start: 01-24-2024 End: 01-24-2024 Emergency department patient visit Moreno Donnelly Facility:[facility] Start: 01-17-2024 End: 01-17-2024 ambulatory Nicky Cavanaugh Facility:[facility] Start: 01-17-2024 End: 01-17-2024 ambulatory Henry Patterson Facility:[facility] Start: 01-13-2024 End: 01-13-2024 Emergency department patient visit Nicky Valdivia Facility:[facility] Start: 01-13-2024 ambulatory Joo Higuera [facility] Start: 01-13-2024 End: 01-13-2024 ambulatory Induindira Granados Facility:[facility] Start: 01-09-2024 ambulatory Indu Granados [facility] Start: 01-09-2024 End: 01-09-2024 ambulatory Joo Higuera Facility:[facility] Start: 01-07-2024 End: 01-07-2024 ambulatory Grhaam RED Facility:[facility] Start: 01-07-2024 End: 01-07-2024 ambulatory Graham RED Facility:[facility] Start: 01-05-2024 End: 01-05-2024 ambulatory Peter Orta Facility:[facility] Start: 01-03-2024 End: 01-14-2024 ambulatory Nicky Cavanaugh Facility:[facility] Start: 12-06-2023 End: 12-15-2023 ambulatory Nicky Cavanaugh Facility:[facility] Start: 12-03-2023 End: 12-03-2023 ambulatory Peter Orta Facility:[facility] Start: 11-23-2023 ambulatory Joo Higuera [facility] Start: 11-23-2023 End: 11-23-2023 ambulatory Joo Higuera Facility:[facility] Start: 11-08-2023 End: 11-14-2023 ambulatory Nicky Cavanaugh Facility:[facility] Start: 11-02-2023 End: 11-02-2023 ambulatory Joo Higuera Facility:[facility] Start: 10-14-2023 ambulatory Marisol Evangelista y:[facility] Start: 10-11-2023 End: 10-15-2023 ambulatory Nicky Cavanaugh Facility:[facility] Start: 10-03-2023 End: 10-03-2023 ambulatory LINDA RESTREPO Facility:[facility] Start: 10-03-2023 End: 10-03-2023 Patient encounter procedure Linda Restrepo APRN.CNM Work Phone: OB/Gynecology Comment on above: Blood blister (Prima ry Dx) Start: 09-28-2023 End: 09-28-2023 ambulatory Indu Granados Facility:[facility] Start: 09-13-2023 End: 09-14-2023 ambulatory Nicky Cavanaugh Facility:[facility] Start: 09-09-2023 End: 09-09-2023 ambulatory Marie Langley FANS CLERK Facility:[facility] Start: 09-09-2023 End: 09-09-2023 ambulatory Marie Langley FANS CLERK Facility:[facility] Start: 06-14-2023 End: 06-14-[address] Moreno Donnelly Work Phone: [facility] Work Phone: Start: 06-14-2023 End: 06-14-[address] [facility] Work Phone: Start: 05-13-2023 End: 05-15-[address] Ervin Donnelly Work Phone: [facility] Work Phone: Start: 05-13-2023 End: 05-15-[address] Ervin Donnelly Work Phone: [facility] Work Phone: Start: 03-30-2023 Non-patient / Non-visit Dr. Ervin Donnelly Work Phone: [facility] Start: 03-30-2023 End: 03-30-[address] Ervin Donnelly Work Phone: [facility] Work Phone: Start: 03-30-2023 End: 03-30-[address] Ervin Donnelly Work Phone: [facility]-Cardiovascular Services Work Phone: Start: 03-10-2023 End: 03-10-[address] Ervin Donenlly Work Phone: [facility]-Pulmonary Medicine [facility] Work Phone: Start: 03-09-2023 End: 03-09-[address] Ervin Donnelly Work Phone: [facility] Work Phone: Start: 03-09-2023 End: 03-09-[address] Ervin Donnelly Work Phone: [facility] Start: 12-10-2022 End: 12-10-[address] 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 Ervin Donnelly Work Phone: [facility] Work Phone: Start: 11-01-2022 Telephone encounter Cassie rock APRN.DAMPPROOFER Work Phone: OB/Gynecology Comment on above: Results Start: 10-29-2022 End: 10-29-2022 Patient encounter procedure Cassie Shetty APRN.DAMPPROOFER Work Phone: OB/Gynecology Comment on above: Vulvar irritation (P rimary Dx) Start: 10-21-2022 End: 10-21-2022 ambulatory [facility] Work Phone: Start: 10-21-2022 End: 10-21-2022 Patient encounter procedure [facility] Start: 09-24-2022 End: 09-24-2022 ambulatory [facility] Work Phone: Start: 09-24-2022 End: 09-24-2022 Patient encounter procedure [facility]-Laboratory, Specimen Work Phone: Start: 09-16-2022 End: 09-16-2022 ambulatory KEYON MEADE Facility:[facility] Start: 09-16-2022 End: 09-16-2022 Patient encounter procedure Keyon Meade DPM Work Phone: [facility] Comment on above: Chronic pain of left ankle (Primary Dx); 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 Ervin Donnelly Work Phone: [facility] Work Phone: Start: 09-07-2022 End: 09-07-[address] Ervin Donnelly Work Phone: [facility] Start: 07-15-2022 End: 07-15-[address] Ervin Donnelly Work Phone: [facility] Work Phone: Start: 07-15-2022 End: 07-15-[address] Ervin Donnelly Work Phone: [facility] Start: 06-15-2022 End: 06-15-[address] Ervin Donnelly Work Phone: [facility] Work Phone: Start: 06-15-2022 End: 06-15-[address] [facility] Start: 05-31-2022 End: 05-31-[address] Ervin Donnelly Work Phone: [facility] Start: 05-27-2022 End: 05-27-[address] Ervin Donnelly Work Phone: [facility]-Pulmonary Medicine [facility] Start: 05-08-2022 End: 05-08-2022 Emergency department patient visit Dr. Ervin Donnelly Work Phone: [facility]-Emergency Department Start: 03-28-2022 End: 03-28-[address] Ervin Donnelly Work Phone: [facility] Work Phone: Start: 03-28-2022 End: 03-28-[address] Ervin Donnelly Work Phone: [facility]-Sleep Lab Start: 03-01-2022 End: 03-01-[address] Ervin Donnelly Work Phone: [facility] Start: 02-10-2022 End: 02-10-[address] Ervin Donnelly Work Phone: [facility] Work Phone: Start: 02-10-2022 End: 02-10-[address] Ervin Donnelly Work Phone[facility] Start: 01-27-2022 End: 01-27-2022 Subsequent hospital visit by physician Screen Mammo [facility] Mammogram Comment on above: Encounter for screen ing mammogram for malignant neoplasm of breast [Z12.31] Start: 01-18-2022 Telephone encounter Linda gould APRN.CNM Work Phone: OB/Gynecology Comment on above: Results Start: 01-12-2022 End: 01-12-2022 Patient encounter procedure Linda Restrepo APRN.CNM Work Phone: OB/Gynecology Comment on above: Pruritus of vulva (P rimary Dx) Start: 01-11-2022 Telephone encounter Linda gould DRAW IN HAND.CNM Work Phone: OB/Gynecology Comment on above: Follow Up Start: 01-08-2022 End: 01-08-2022 Patient encounter procedure Linda Restrepo DRAW IN HAND.CNM Work Phone: OB/Gynecology Comment on above: Vulvar itching (Prim falguni Dx); Encounter for screening mammogram for malignant neoplasm of breast Start: 12-28-2021 Telephone encounter Sarah Beth Sameer serna DRAW IN HAND.CNM Work Phone: OB/Gynecology Comment on above: Patient Update Start: 12-24-2021 Telephone encounter Linda gould DRAW IN HAND.CNM Work Phone: OB/Gynecology Comment on above: Results Start: 12-23-2021 End: 12-23-2021 Patient encounter procedure Linda Restrepo DRAW IN HAND.CNM Work Phone: OB/Gynecology Comment on above: Vulvar dermatitis (P rimary Dx); Vulvar itching Start: 12-03-2021 End: 12-03-[address] Ervin Donnelly Work Phone: [facility] Start: 11-03-2021 End: 11-03-[address] Ervin Donnelly Work Phone: [facility] Start: 09-12-2021 End: 09-12-2021 Emergency department patient visit Dr. Ervin Donnelly Work Phone: [facility]-Emergency Department Start: 09-12-2021 End: 09-12-2021 Patient encounter procedure Merrill Chaves MD Work Phone: [facility] Comment on above: Headache, unspecifie d headache type (Primary Dx); Neck pain; Fever, unspecified fever cause Start: 09-09-2021 Non-patient / Non-visit Dr. Ervin Donnelly Work Phone: [facility] Start: 09-09-2021 End: 09-09-[address] Er[facility] Donnelly [facility] Start: 09-02-2021 Non-patient / Non-visit Dr. Ervin Donnelly Work Phone: [facility] Start: 08-26-2021 Non-patient / Non-visit Dr. Ervin Donnelly Work Phone: [facility] Start: 08-20-2021 End: 08-20-[address] Ervin Donnelly Work Phone: [facility] Start: 08-03-2021 End: 08-03-[address] Er[facility] Donnelly [facility] Start: 08-03-2021 End: 08-03-2021 Dr. Ervin Donnelly Work Phone: [facility] Start: 07-21-[address] Ramirez Donnelly Work Phone: [facility] Start: 07-21-2021 Dr. Ervin Donnelly Work Phone: [facility] Start: 07-14-2021 Non-patient / Non-visit Dr. Ervin Donnelly Work Phone: [facility] Inpatient Physicians Start: 07-14-2021 Dr. Ervin Donnelly Work Phone: [facility] Start: 07-06-2021 End: 07-15-2021 Evaluation and management of inpatient Dr. Ervin Donnelly Work Phone: [facility]-Transitional Care Unit Start: 07-06-2021 End: 07-15-2021 Dr. Ervin [facility]nel[facility] Start: 07-06-2021 Non-patient / Non-visit Dr. Ervin Donnelly Work Phone: [facility] Start: 07-06-2021 Dr. Ervin Donnelly Work Phone: [facility] Start: 07-05-2021 Non-patient / Non-visit Dr. Ervin Donnelly Work Phone: [facility] Start: 07-05-2021 Dr. Ervin Donnelly Work Phone: [facility] In[facility] Physicians Start: 07-04-2021 End: 07-06-2021 Evaluation and management of inpatient Dr. Ervin Donnelly Work Phone: [facility] 3 Start: 07-04-2021 End: 07-06-2021 Dr. Ervin Donnelly Work Phone: [facility] 3 Start: 07-03-2021 End: 07-04-2021 Emergency department patient visit Dr. Ervin Donnelly [facility] Start: 07-03-2021 End: 07-04-2021 Dr. Er[facility]nel[facility] Start: 07-03-2021 End: 07-03-[address] Er[facility]nel[facility] Start: 07-03-2021 End: 07-03-2021 Dr. Er[facility] Donnel[facility] Start: 06-26-2021 End: 07-04-2021 Evaluation and management of inpatient Dr. Ervin Donnelly Work Phone: [facility]-Transitional Care Unit Start: 06-26-2021 End: 07-04-2021 Dr. Ervin Donnelly [facility] Start: 06-26-2021 Non-patient / Non-visit Dr. Ervin Donnelly Work Phone: [facility] In[facility] Phys[facility] Start: 06-26-2021 Dr. Ervin Donnelly Work Phone: [facility] In[facility] Phys[facility] Start: 06-25-2021 Non-patient / Non-visit Dr. Ervin Donnelly Work Phone: [facility] Start: 06-25-2021 Dr. Ervin Donnelly Work Phone: [facility] In[facility] Phys[facility] Start: 06-24-2021 Non-patient / Non-visit Dr. Ervin Donnelly Work Phone: [facility] In[facility] Phys[facility] Start: 06-24-2021 Dr. Ervin Donnelly Work Phone: [facility] In[facility] Physicians Start: 06-24-2021 End: 06-26-2021 Evaluation and management of inpatient Dr. Ervin Donnelly [facility] Start: 06-24-2021 End: 06-26-2021 Dr. Ervin Donnelly [facility] Start: 06-22-2021 End: 07-14-[address] Ervin Donnelly Work Phone: [facility]-Diabetic [facility] Start: 06-22-[address] Bismark Donnelly Work Phone: [facility] Start: 06-22-2021 End: 07-14-2021 Dr. Ervin Donnelly Work Phone: [facility] Start: 05-22-2021 End: 05-22-[address] Ervin Donnelly Work Phone: [facility]-Laboratory, Specimen Start: 05-22-2021 End: 05-22-2021 Dr. Ervin Donnelly Work Phone: [facility]-Laboratory, Specimen Start: 05-12-2021 End: 05-12-2021 Emergency department patient visit Dr. Ervin Donnelly Work Phone: [facility]-Emergency Department Start: 05-12-2021 End: 05-12-2021 Dr. Ervin Donnelly Work Phone: [facility]-Emergency Department Start: 05-02-2021 End: 05-02-[address] Ervin Donnelly Work Phone: [facility] Start: 05-02-2021 End: 05-02-2021 Dr. Ervin Donnelly Work Phone: [facility] Start: 04-30-2021 End: 04-30-[address] [facility] Start: 04-30-2021 End: 04-30-2021 Dr. Ervin Donnelly [facility] Start: 04-14-2021 End: 05-14-[address] Er[facility]ly [facility] Start: 04-14-[address] Bismark Donnelly [facility] Start: 04-14-2021 End: 05-14-2021 Dr. Ervin Donnelly [facility] Start: 04-09-2021 Non-patient / Non-visit Dr. Ervin Donnelly Work Phone: [facility] Start: 04-09-2021 End: 04-09-[address] Ervin Donnelly [facility] Start: 04-09-2021 End: 04-09-2021 Dr. Ervin Donnelly [facility] Start: 04-01-2021 End: 04-01-[address] Er[facility] Donnelly [facility] Start: 04-01-2021 End: 04-01-2021 Dr. Ervin Donnelly [facility] Start: 03-25-2021 End: 03-25-[address] Ervin Donnelly Work Phone: [facility]-Laboratory Start: 03-25-2021 End: 03-25-2021 Dr. Ervin Donnelly Work Phone: [facility]-Laboratory Start: 03-25-[address] Ervin Donnelly Work Phone: [facility] Start: 03-25-2021 End: 03-25-2021 Admission to same day surgery center Dr. Ervin Donnelly Work Phone: [facility] Start: 03-25-2021 End: 03-25-[address] Ervin Donnelly Work Phone: [facility] Start: 03-25-2021 End: 04-13-[address] Ervin Donnelly Work Phone: [facility]Diabetic [facility] Start: 03-25-2021 End: 04-13-2021 Dr. Ervin Donnelly Work Phone: [facility] [facility] Start: 03-24-[address] Bismark Donnelly Work Phone: [facility] Start: 03-24-2021 Dr. Ervin Donnelly Work Phone: [facility] Start: 03-04-2021 End: 03-16-[address] Ervin Donnelly Work Phone: [facility] Start: 02-11-[address] Ervin Donnelly Work Phone: [facility] Specimen Start: 02-09-[address] Ervin Donnelly Work Phone: [facility] Start: 02-09-2021 End: 02-13-[address] Ervin Donnelly Work Phone: [facility] Start: 01-29-[address] [facility] Start: 01-26-[address] [facility] Start: 01-21-2017 End: 01-28-2017 Evaluation and management of inpatient Ernie Yusuf Facility:[facility] Start: 12-15-2016 End: 12-30-2016 Evaluation and management of inpatient KIARA CARMONA [facility] Procedures Date Procedure Procedure Detail Performing Clinician Start: 09-06-2024 Urine microscopy: red cells Dr. Moreno Donnelly MD Work Phone: Start: 09-06-2024 Urnls dip stick/tabl et reagent auto microscopy Dr. Moreno Donnelly MD Work Phone: Start: 09-06-2024 CT of thorax, abdome n and pelvis with contrast Dr. Moreno Donnelly MD Work Phone: Start: 09-06-2024 Dr. Ramirez Donnelly MD Work Phone: Start: 09-06-2024 Blood count smear rscp w/mnl difrntl wbc count Dr. Moreno Donnelly MD Work Phone: Start: 09-06-2024 Calculation of international normalized ratio Dr. Moreno Donnelly MD Work Phone: Start: 09-06-2024 Mean corpuscular hem oglobin concentration determination Dr. Moreno Donnelly MD Work Phone: Start: 09-06-2024 Nucleated red blood cell count procedure Dr. Moreno Donnelly MD Work Phone: Start: 09-06-2024 Platelet mean volume determination Dr. Moreno Donnelly MD Work Phone: Start: 09-05-[address] Stephanie Donnelly MD Work Phone: Start: 09-05-2024 Blood count smear mc rscp w/mnl difrntl wbc count Dr. Moreno Donnelly MD Work Phone: Start: 09-05-2024 Electrophoresis: [id number] Dr. Moreno Donnelly MD Work Phone: Start: 09-05-2024 Electrophoresis: [id number] Dr. Moreno Donnelly MD Work Phone: Start: 09-05-2024 Electrophoresis: la ma globulin Dr. Moreno Donnelly MD Work Phone: Start: 09-05-2024 Mean corpuscular hem oglobin concentration determination Dr. Moreno Donnelly MD Work Phone: Start: 09-05-2024 Nucleated red blood cell count procedure Dr. Moreno Donnelly MD Work Phone: Start: 09-05-[address] Moreno Donnelly MD Work Phone: Start: 09-05-2024 Platelet mean volume determination Dr. Moreno Donnelly MD Work Phone: Start: 09-05-[address] Moreno Donnelly MD Work Phone: Start: 09-05-2024 Vitamin D, 25-hydrox y measurement Dr. Moreno Donnelly MD Work Phone: Start: 09-05-2024 X-ray of chest, PA a nd lateral views Dr. Moreno Donnelly MD Work Phone: Start: 08-23-2024 Gram stain microscopy Chucky Donnelly MD Work Phone: Start: 08-23-2024 Respiratory microbia l culture Dr. Moreno Donnelly MD Work Phone: Start: 08-22-2024 Dual energy X-ray absorptiometry Dr. Moreno Donnelly MD Work Phone: Start: 08-02-2024 X-ray of chest, PA a nd lateral views Dr. Moreno Donnelly MD Work Phone: Start: 07-25-2024 Blood count smear mc rscp w/mnl difrntl wbc count Dr. Moreno Donnelly MD Work Phone: Start: 07-25-2024 Mean corpuscular hem oglobin concentration determination Dr. Moreno Donnelly MD Work Phone: Start: 07-25-2024 Nucleated red blood cell count procedure Dr. Moreno Donnelly MD Work Phone: Start: 07-25-2024 Platelet mean volume determination Dr. Moreno Donnelly MD Work Phone: Start: 07-05-2024 X-ray of chest, PA a nd lateral views Dr. Moreno Donnelly MD Work Phone: Start: 05-23-[address] Moreno Donnelly MD Work Phone: Start: 05-23-2024 Total cholesterol:HD L ratio measurement Dr. Moreno Donnelly MD Work Phone: Start: 05-03-2024 X-ray of lumbar spin e, two or three views Dr. Moreno Donnelly MD Work Phone: Start: 04-24-[address] Moreno Donnelly MD Work Phone: Start: 04-21-2024 End: 04-21-2024 Acid fast bacilli culture Dr. Ervin Donnelly MD Work Phone: Start: 04-20-2024 End: 04-20-2024 Acid fast bacilli culture Dr. Ervin Donnelly MD Work Phone: Start: 04-20-2024 Gram stain microscopy D julissa Donnelly MD Work Phone: Start: 04-20-2024 Respiratory microbia l culture Dr. Moreno Donnelly MD Work Phone: Start: 04-19-2024 End: 04-19-2024 Acid fast bacilli culture Dr. Ervin Donnelly MD Work Phone: Start: 04-19-2024 Bacteria identificat ion test Dr. Moreno Donnelly MD Work Phone: Start: 04-19-2024 Gram stain microscopy Chucky Donnelly MD Work Phone: Start: 04-18-2024 Gram stain microscopy D julissa Donnelly MD Work Phone: Start: 04-18-2024 Respiratory microbia l culture Dr. Moreno Donnelly MD Work Phone: Start: 04-18-2024 Blood count smear mc rscp w/mnl difrntl wbc count Dr. Moreno Donnelly MD Work Phone: Start: 04-18-2024 Mean corpuscular hem oglobin concentration determination Dr. Moreno Donnelly MD Work Phone: Start: 04-18-2024 Nucleated red blood cell count procedure Dr. Moreno Donnelly MD Work Phone: Start: 04-18-2024 Platelet mean volume determination Dr. Moreno Donnelly MD Work Phone: Start: 04-11-[address] Bismark Donnelly MD Work Phone: Start: 03-26-2024 MRI of lumbar spine Dr. Moreno Donnelly MD Work Phone: Start: 05-10-[address] Ervin Donnelly Work Phone: Start: 05-10-2023 Investigation of transfusion reaction Dr. Ervin Donnelly Work Phone: Start: 05-10-2023 Microbial culture, routine Dr. Ervin Donnelly Work Phone: Start: 03-30-2023 Investigation of transfusion reaction Dr. Ervin Donnelly Work Phone: Start: 03-30-[address] l culture Dr. Ervin Donnelly Work Phone: Start: 12-07-2022 Smr prim src gram/gi emsa stain bct fungi/cell Nunu Oneal MD Work Phone: Start: 09-24-2022 Bacteria identificat ion test Start: 07-15-2022 MRI of joint of lowe r extremity Dr. Ervin Donnelly Work Phone: Start: 06-15-2022 Plain chest X-ray Dr. Anam Donnelly Work Phone: Start: 05-08-2022 Plain chest X-ray Dr. Anam Donnelly Work Phone: Start: 01-27-2022 End: 01-27-2022 Mammography Linda Restrepo DRAW IN HAND.C NM Work Phone: Start: 11-03-2021 Plain chest X-ray Dr. Anam Donnelly Work Phone: Start: 09-12-2021 CT of head without contrast Dr. Ervin Donnelly Work Phone: Start: 07-13-2021 End: 07-13-[address] Ervin saini Work Phone: Start: 07-06-2021 End: 07-06-[address] Ervin saini Work Phone: Start: 07-04-2021 Dr. Ramirez Donnelly Work Phone: Start: 07-04-2021 Plain chest X-ray Dr. Anam Donnelly Work Phone: Start: 07-03-2021 MRI of lower extremity Dr. Ervin Donnelly Work Phone: Start: 07-03-2021 Respiratory Panel (PCR) Dr. Ervin Donnelly Work Phone: Start: 07-03-[address] Bismark Donnelly Work Phone: Start: 07-03-2021 End: 07-03-[address] Ervin saini Work Phone: Start: 07-03-2021 Dr. Ramirez Donnelly Work Phone: Start: 07-03-2021 X-ray of lumbar spin e, two or three views Dr. Ervin Donnelly Work Phone: Start: 06-29-2021 End: 06-29-[address] Ervin saini Work Phone: Start: 06-28-2021 Plain chest X-ray Dr. Anam Donnelly Work Phone: Start: 06-26-2021 End: 06-26-[address] Ervin saini Work Phone: Start: 06-26-2021 Plain chest X-ray Dr. Anam Donnelly Work Phone: Start: 06-24-2021 Fluoroscopic guidance Chucky Donnelly Work Phone: Start: 06-24-2021 Plain x-ray of pelvi s and lower extremity Dr. Ervin Donnelly Work Phone: Start: 06-24-2021 Total replacement of hip Dr. Ervin Donnelly Work Phone: Start: 06-24-2021 Plain X-ray of hip Dr. Ervin Donnelly Work Phone: Start: 06-22-2021 End: 06-22-[address] Ervin saini Work Phone: Start: 06-08-2021 Nasal Screen MRSA/MSSA Dr. Ervin Donnelly Work Phone: Start: 06-08-2021 Dr. Ramirez Donnelly Work Phone: Start: 05-22-2021 End: 05-22-2021 Investigation of transfusion reaction Dr. Ervin Donnelly Work Phone: Start: 05-22-2021 Respiratory microbia l culture Dr. Ervin Donnelly Work Phone: Start: 05-12-2021 Plain chest X-ray Dr. Anam Donnelly Work Phone: Start: 05-12-2021 Bacteria identified in Blood by Culture Dr. Ervin Donnelly Work Phone: Start: 05-12-2021 Respiratory Panel (PCR) Dr. Ervin Donnelly Work Phone: Start: 05-12-[address] Bismark Donnelly Work Phone: Start: 05-12-2021 Dr. Ramirez Donnelly Work Phone: Start: 05-02-2021 CT of chest without contrast Dr. Ervin Donnelly Work Phone: Start: 04-09-2021 Nasal Screen MRSA/MSSA Dr. Ervin Donnelly Work Phone: Start: 04-09-2021 Dr. Ramirez Donnelly Work Phone: Start: 02-09-2021 Bacteria identified in Urine by Culture Dr. Ervin Donnelly Work Phone: Start: 01-29-[address] Bismark Donnelly Work Phone: Start: 10-05-2019 Mammography Merrill dowling MD Work Phone: Start: 01-26-2017 [id number] Ernie Franco Start: 01-26-2017 Drainage of Left Upp er Lung Lobe, Via Natural or Artificial Opening Endoscopic, Diagnostic Ernie Yusuf Start: 01-26-2017 Drainage of Right Up per Lung Lobe, Via Natural or Artificial Opening Endoscopic, Diagnostic Ernie Yusuf Start: 01-24-2017 Drainage of Spinal C anal, Percutaneous Approach, Diagnostic Ernie Yusuf Start: 01-09-2013 [facility] Merrill dowling MD Work Phone: Bacteria identified in Blood by Culture Dr. Ervin Donnelly Work Phone: Investigation of transfusion reaction Dr. Ervin Donnelly Work Phone: Nasal Screen MRSA/MSSA Dr. Anam Donnelly Work Phone: Respiratory microbia l culture Dr. Ervin Donnelly Work Phone: Respiratory Panel (PCR) Dr. Ervin Donnelly Work Phone: SARS-CoV-2 & FLU Ant igen (Rapid) Dr. Ervin Donnelly Work Phone: SARS-CoV-2 & FLU Ant igen (Rapid) Dr. Ervin Donnelly Work Phone: Urine culture Dr. Ervin Donnelly Work Phone: Viral antigen assay Dr. Diomedes Donnelly Work Phone: Plan of Treatment Date Care Activity Detail Author Start: 09-18-2029 Urine microalbumin profile DTaP,Tdap,Td Vaccine (2 - Td or Tdap) [facility] Start: 05-01-2025 BP Controlled (<130/80) BP Controlled (<130/80) [facility] Start: 10-02-2024 BP Controlled (<130/80) BP Controlled (<130/80) [facility] Start: 09-06-2024 [facility] Start: 09-06-2024 End: 09-06-2024 [facility] Start: 09-06-2024 Urine culture [facility] Start: 09-05-2024 [facility] Start: 05-07-2024 Covid-19 Vaccine ( season) Covid-19 Vaccine () [facility] Start: 05-03-2024 Patient referral [facility] Work Phone: Start: 04-21-2024 [facility] Start: 04-20-2024 [facility] Start: 04-20-2024 End: 04-21-2024 Acid fast bacilli culture [facility] Start: 04-19-2024 [facility] Start: 04-19-2024 Acid fast bacilli culture [facility] Start: 02-15-2024 Advance Directive Discussion Advance Directive Discussion [facility] Start: 10-30-2023 BP Controlled (<130/80) BP Controlled (<130/80) [facility] Start: 10-16-2023 Influenza vaccination Influenza Vaccine (#1) [facility] Start: 03-29-2023 Covid-19 Vaccine () Covid-19 Vaccine () [facility] Start: 02-14-2023 Advance Directive Discussion Advance Directive Discussion [facility] Start: 02-04-2023 BP CONTROLLED (<130/80) BP CONTROLLED (<130/80) [facility] Start: 01-27-2023 Mammography [facility] Start: 01-27-2023 Screening for malignant neoplasm of breast Mammogram Screening [facility] Start: 01-09-2023 Colonoscopy COLONOSCOPY [facility] Start: 01-09-2023 COLORECTAL CANCER SCREENING COLORECTAL CANCER SCREENING [facility] Start: 01-09-2023 Screening for malignant neoplasm of colon [facility] Start: 10-15-2022 Influenza vaccination [facility] Start: 05-08-2022 End: 05-08-2022 [facility] Start: 03-23-2022 COVID-19 VACCINE (6 - Moderna series) COVID-19 VACCINE (6 - Moderna series) [facility] Start: 02-14-2022 ADVANCE DIRECTIVE DISCUSSION ADVANCE DIRECTIVE DISCUSSION [facility] Start: 02-14-2022 DEPRESSION ASSESSMENT DEPRESSION ASSESSMENT [facility] Start: 10-15-2021 Influenza vaccination INFLUENZA (#1) [facility] Start: 09-12-2021 [facility] Work Phone: Start: 09-08-2021 COVID-19 VACCINE (5 - Booster for Moderna series) COVID-19 VACCINE (5 - Booster for Moderna series) [facility] Start: 07-15-2021 Development of care plan [facility] Work Phone: Start: 07-15-2021 Patient discharge [facility] Work Phone: Start: 07-14-2021 Developing a treatment plan [facility] Work Phone: Start: 07-14-2021 [facility] Work Phone: Start: 07-14-2021 [facility] Work Phone: Start: 07-14-2021 Introduction of urinary catheter [facility] Work Phone: Start: 07-14-2021 Referral to service [facility] Work Phone: Start: 07-13-2021 [facility] Work Phone: Start: 07-11-2021 Wound care [facility] Work Phone: Start: 07-10-2021 [facility] Work Phone: Start: 07-07-2021 Development of care plan [facility] Work Phone: Start: 07-07-2021 Developing a treatment plan [facility] Work Phone: Start: 07-06-2021 Patient referral to dietitian [facility] Work Phone: Start: 07-06-2021 Admission procedure [facility] Work Phone: Start: 07-06-2021 Measuring intake and output [facility] Work Phone: Start: 07-06-2021 Patient referral to dietitian [facility] Work Phone: Start: 07-06-2021 Referral to occupational therapist [facility] Work Phone: Start: 07-06-2021 Referral to service [facility] Work Phone: Start: 07-06-2021 Vital signs measurements [facility] Work Phone: Start: 07-06-2021 [facility] Work Phone: Start: 07-06-2021 Development of care plan [facility] Work Phone: Start: 07-06-2021 Following clinical pathway protocol [facility] Work Phone: Start: 07-06-2021 Patient discharge [facility] Work Phone: Start: 07-04-2021 Patient discharge [facility] Work Phone: Start: 07-04-2021 Bacteria identified in Blood by Culture Blood Culture [facility] Work Phone: Start: 07-04-2021 End: 07-04-2021 [facility] Work Phone: Start: 07-04-2021 Following clinical pathway protocol [facility] Work Phone: Start: 07-04-2021 Assessment of risk of venous thromboembolism [facility] Work Phone: Start: 07-04-2021 Inhalation therapy procedure [facility] Work Phone: Start: 07-04-2021 Insertion of catheter into peripheral vein [facility] Work Phone: Start: 07-04-2021 Oxygen therapy [facility] Work Phone: Start: 07-04-2021 Providing care according to standard [facility] Work Phone: Start: 07-04-2021 Provision of activity privileges [facility] Work Phone: Start: 07-04-2021 Referral to occupational therapist [facility] Work Phone: Start: 07-04-2021 Referral to service [facility] Work Phone: Start: 07-04-2021 Admission procedure [facility] Work Phone: Start: 07-04-2021 Inhalation therapy procedure [facility] Work Phone: Start: 07-03-2021 Bacteria identified in Blood by Culture Blood Culture [facility] Work Phone: Start: 07-03-2021 Bacteria identified in Urine by Culture Urine Culture [facility] Work Phone: Start: 07-03-2021 Emergency dept visit high severity&threat funcj [facility] Work Phone: Start: 07-03-2021 Urine culture Urine Culture [facility] Work Phone: Start: 07-03-2021 End: 07-04-2021 [facility] Work Phone: Start: 07-02-2021 Following clinical pathway protocol [facility] Work Phone: Start: 07-01-2021 Consultation [facility] Work Phone: Start: 06-29-2021 [facility] Work Phone: Start: 06-27-2021 Developing a treatment plan [facility] Work Phone: Start: 06-27-2021 Development of care plan [facility] Work Phone: Start: 06-27-2021 [facility] Work Phone: Start: 06-26-2021 Wound care [facility] Work Phone: Start: 06-26-2021 Provision of activity privileges [facility] Work Phone: Start: 06-26-2021 Following clinical pathway protocol [facility] Work Phone: Start: 06-26-2021 Admission procedure [facility] Work Phone: Start: 06-26-2021 Measuring intake and output [facility] Work Phone: Start: 06-26-2021 Patient referral to dietitian [facility] Work Phone: Start: 06-26-2021 Referral to occupational therapist [facility] Work Phone: Start: 06-26-2021 Referral to service [facility] Work Phone: Start: 06-26-2021 Vital signs measurements [facility] Work Phone: Start: 06-26-2021 End: 06-26-2021 [facility] Work Phone: Start: 06-26-2021 Patient discharge [facility] Work Phone: Start: 06-26-2021 Application of device [facility] Work Phone: Start: 06-26-2021 Application of elastic bandage [facility] Work Phone: Start: 06-25-2021 Referral to service [facility] Work Phone: Start: 06-24-2021 Following clinical pathway protocol [facility] Work Phone: Start: 06-24-2021 Anesthesia open total hip arthroplasty [facility] Work Phone: Start: 06-24-2021 Arthrp acetblr/prox fem prostc agrft/algrft [facility] Work Phone: Start: 06-24-2021 Provision of overbed trapeze [facility] Work Phone: Start: 06-24-2021 Admission procedure [facility] Work Phone: Start: 06-24-2021 Ambulation therapy management [facility] Work Phone: Start: 06-24-2021 Application of antithromboembolic stockings [facility] Work Phone: Start: 06-24-2021 Application of device [facility] Work Phone: Start: 06-24-2021 Application of intermittent pneumatic compression device [facility] Work Phone: Start: 06-24-2021 Assessment of risk of venous thromboembolism [facility] Work Phone: Start: 06-24-2021 Catheterization of vein [facility] Work Phone: Start: 06-24-2021 Consultation [facility] Work Phone: Start: 06-24-2021 Exercises [facility] Work Phone: Start: 06-24-2021 Following clinical pathway protocol [facility] Work Phone: Start: 06-24-2021 Incentive spirometry [facility] Work Phone: Start: 06-24-2021 Introduction of urinary catheter [facility] Work Phone: Start: 06-24-2021 Measuring intake and output [facility] Work Phone: Start: 06-24-2021 Neurovascular assessment [facility] Work Phone: Start: 06-24-2021 Patient education [facility] Work Phone: Start: 06-24-2021 Procedure discontinued [facility] Work Phone: Start: 06-24-2021 Provision of activity privileges [facility] Work Phone: Start: 06-24-2021 Referral to occupational therapist [facility] Work Phone: Start: 06-24-2021 Referral to service [facility] Work Phone: Start: 06-24-2021 Vital signs measurements [facility] Work Phone: Start: 06-24-2021 Wound care [facility] Work Phone: Start: 06-24-2021 [facility] Work Phone: Start: 06-24-2021 Inhalation therapy procedure [facility] Work Phone: Start: 05-12-2021 End: 05-12-2021 [facility] Work Phone: Start: 05-12-2021 Bacteria identified in Blood by Culture Blood Culture [facility] Work Phone: Start: 05-12-2021 Bacteria identified in Urine by Culture Urine Culture [facility] Work Phone: Start: 05-12-2021 Respiratory Panel (PCR) Respiratory Panel (PCR) [facility] Work Phone: Start: 04-01-2021 Electrocardiographic procedure [facility] Work Phone: Start: 02-14-2021 ADVANCE DIRECTIVE DISCUSSION ADVANCE DIRECTIVE DISCUSSION [facility] Start: 02-14-2021 DEPRESSION ASSESSMENT DEPRESSION ASSESSMENT [facility] Start: 10-04-2020 Mammography MAMMOGRAM [facility] Start: 12-31-2019 DIABETES SCREEN DIABETES SCREEN [facility] Start: 12-31-2019 Diabetes Screening Diabetes Screening [facility] Start: 2019 BONE DENSITY BONE DENSITY [facility] Start: 2019 Bone Density Screening Bone Density Screening [facility] Start: 2019 Screening for osteoporosis Bone Density Screening [facility] Start: 12-30-2017 Creatinine measurement Serum Creatinine [facility] Start: 12-30-2017 SERUM CREATININE SERUM CREATININE [facility] Start: 01-13-2017 Pneumococcal Vaccine: 65+ (2 - PCV) Pneumococcal Vaccine: 65+ (2 - PCV) [facility] Start: 01-13-2017 PNEUMOCOCCAL: 65+ (2 - PCV) PNEUMOCOCCAL: 65+ (2 - PCV) [facility] Start: 03-10-2016 SHINGRIX VACCINE (2 of 3) SHINGRIX VACCINE (2 of 3) [facility] Start: 1999 COLOGUARD (FIT-DNA) COLOGUARD (FIT-DNA) [facility] Start: [address] COLONOGRAPHY [facility] Start: 1999 FECAL OCCULT BLOOD FECAL OCCULT BLOOD [facility] Start: 1999 Lipid 1996 panel - Serum or Plasma Lipid Screening [facility] Start: 1999 Lipid panel Lipid Screening [facility] Start: 1999 LIPID SCREEN LIPID SCREEN [facility] Start: 1999 Screening for malignant neoplasm of colon [facility] Start: 1999 SIGMOIDOSCOPY SIGMOIDOSCOPY [facility] Start: 1973 Urine microalbumin profile [facility] Start: 01-11-1972 ANNUAL PCP TEAM CHRONIC DISEASE VISIT ANNUAL PCP TEAM CHRONIC DISEASE VISIT [facility] Start: 01-11-1972 Anxiety Screening Anxiety Screening [facility] Start: 01-11-1972 BP CONTROLLED (<130/80) BP CONTROLLED (<130/80) [facility] Start: 01-11-1972 Depression Screening Depression Screening [facility] Start: 01-11-1972 HEPATITIS C SCREENING HEPATITIS C SCREENING [facility] Start: 01-11-1972 Hepatitis C screening Hepatitis C Screening [facility] Start: 1966 Adult depression screening assessment DEPRESSION SCREENING [facility] Acid fast bacilli culture [facility] Albumin/Globulin [Ma ss Ratio] in Serum or Plasma by Electrophoresis [facility] BACTERIAL VAGINOSIS AMPLIFICATION BACTERIAL VAGINOSIS AMPLIFICATION Lab Routine Vulvar itching Ordered: 12/23/2021 [facility] Work Phone: Comment on above: Ordered: 12/23/2021 BACTERIAL VAGINOSIS NAAT BACTERI AL VAGINOSIS NAAT Lab Routine Vulvar irritation 10/29/2022 9:33 AM EDT [facility] Work Phone: Biopsy vulva/perineu m 1 lesion spx BIOPSY OF VULVA Procedures Routine Vulvar dermatitis Vulvar itching Ordered: 12/29/2021 [facility] Work Phone: Comment on above: Ordered: 12/29/2021 JOHN PAUL / TRICHOMONA S AMPLIFICATION JOHN PAUL / TRICHOMONAS AMPLIFICATION Microbiology Routine Vulvar itching Ordered: 12/23/2021 [facility] Work Phone: Comment on above: Ordered: 12/23/2021 JOHN PAUL/TRICHOMONAS NAAT JOHN PAUL /TRICHOMONAS NAAT Lab Routine Vulvar irritation 10/29/2022 9:33 AM EDT [facility] Work Phone: Electrophoresis: albumin [facility] Electrophoresis: [id number] [facility] Electrophoresis: [id number] [facility] Electrophoresis: la ma globulin [facility] Globulin measurement [facility] Lipid 1996 panel - S elly or Plasma [facility] Mycobacterium sp amanda ntified in Unspecified specimen by Organism specific culture [facility] Mycobacterium sp amanda ntified in Unspecified specimen by Organism specific culture [facility] Mycobacterium sp amanda ntified in Unspecified specimen by Organism specific culture [facility] Nuclear Ab [Titer] i n Serum by Immunofluorescence [facility] Patient Education [facility] Work Phone: Patient referral [facility] Work Phone: Protein electrophore sis panel - Serum or Plasma [facility] End: 02-07-2023 Screening mammography bi 2-view breast inc cad SHANKAR SCREENING Radiology Routine Encounter for screening mammogram for malignant neoplasm of breast 1 Occurrences starting 01/08/2022 until 02/07/2023 [facility] Work Phone: Comment on above: 1 Occurrences starting 01/08/2022 until 02/07/2023 Serum protein electrophoresis [facility] SURGICAL PATHOLOGY SURGICAL PATH OLOGY Lab Routine Vulvar itching Ordered: 01/08/2022 [facility] Work Phone: Comment on above: Ordered: 01/08/2022 Total globulins measurement [facility] Immunizations Immunization Date Immunization Notes Care Provider Leslie ray 11-26-2022 influenza virus vacc ine, unspecified formulation Linda Restrepo DRAW IN HAND.CNM Work Phone: [facility] 11-13-2021 influenza virus vacc ine, unspecified formulation Cassie Shetty DRAW IN HAND.DAMPPROOFER Work Phone: [facility] 07-14-2021 Covid (Moderna) Dr. Osbaldo Donnelly Work Phone: [facility] 12-15-2020 Covid (Moderna) Dr. Osbaldo Donnelly Work Phone: [facility] 12-11-2020 Covid (Moderna) Dr. Osbaldo Donnelly Work Phone: [facility] 11-14-2020 influenza, injectabl e, quadrivalent, preservative free [facility] 11-14-2020 influenza, seasonal, injectable Dr. Ervin Donnelly Work Phone: [facility] 05-14-2020 Covid (Moderna) Dr. Osbaldo Donnelly Work Phone: [facility] 05-13-2020 Covid (Moderna) Dr. Osbaldo Donnelly Work Phone: [facility] 04-16-2020 Covid (Moderna) Dr. Osbaldo Donnelly Work Phone: [facility] 11-21-[address] Ervin Donnelly Work Phone: [facility] 10-20-[address] Ervin Donnelly Work Phone: [facility] 10-19-2019 Fluad Quad (65yr up)(PF) 60 mcg (15 mcg x 4)/0.5mL IM syringe (flu vac Dr. Ervin Donnelly Work Phone: [facility] Work Phone: 10-19-2019 Dr. Ervin Donnelly Work Phone: [facility] Work Phone: 09-19-2019 pneumococcal polysaccharide vaccine, [address] Ervin Donnelyl Work Phone: [facility] 09-19-2019 tetanus toxoid, redu sierra diphtheria toxoid, and acellular pertussis vaccine, adsorbed Dr. Ervin Donnelly Work Phone: [facility] 09-19-[address] Ervin Donnelly Work Phone: [facility] 02-14-[address] Ervin Donnelly Work Phone: [facility] 12-01-2018 influenza, injectabl e, quadrivalent, preservative free [facility] 12-01-2018 influenza, seasonal, injectable Dr. Ervin Donnelly Work Phone: [facility] 10-26-[address] Ervin Donnelly Work Phone: [facility] 10-21-2017 influenza, injectabl e, quadrivalent, preservative free [facility] 10-21-2017 influenza, seasonal, injectable Dr. Ervin Donnelly Work Phone: [facility] 12-14-2016 influenza virus vacc ine, whole virus Merrill Chaves MD Work Phone: [facility] Work Phone: 12-14-2016 influenza, injectabl e, quadrivalent, preservative free [facility] 12-14-2016 influenza, seasonal, injectable Dr. Ervin Donnelly Work Phone: [facility] 11-19-2016 influenza, injectabl e, quadrivalent, preservative free [facility] 11-19-2016 influenza, seasonal, injectable Dr. Ervin Donnelly Work Phone: [facility] 01-14-2016 pneumococcal polysaccharide vaccine, [address] Ervin Donnelly Work Phone: [facility] Work Phone: 01-14-2016 zoster vaccine, live Dr. Stephanie Donnelly Work Phone: [facility] Work Phone: 11-18-2015 influenza, injectabl e, quadrivalent, preservative free [facility] 11-18-2015 influenza, seasonal, injectable Dr. Ervin Donnelly Work Phone: [facility] 12-31-2014 pneumococcal conjuga te vaccine, [address] Ervin Donnelly Work Phone: [facility] 11-11-2014 influenza, injectabl e, quadrivalent, preservative free [facility] 11-11-2014 influenza, seasonal, injectable Dr. Ervin Donnelly Work Phone: [facility] 11-14-[address] Ervin Donnelly Work Phone: [facility] 02-14-2013 influenza, injectabl e, quadrivalent, preservative free [facility] 02-14-2013 influenza, seasonal, injectable Dr. Ervin Donnelly Work Phone: [facility] 02-14-2013 zoster vaccine, live Dr. Stephanie Donnelly Work Phone: [facility] 11-10-[address] Ervin Donnelly Work Phone: [facility] 11-10-2012 influenza, injectabl e, quadrivalent, preservative free [facility] 11-10-2012 influenza, seasonal, injectable Dr. Ervin Donnelly Work Phone: [facility] 12-05-[address] Stephanie Donnelly Work Phone: [facility] Work Phone: 12-05-2009 pneumococcal vaccine , unspecified formulation Dr. Ervin Donnelly Work Phone: [facility] 12-09-2008 novel influenza-H1N1 -09, preservative-free, injectable Dr. Ervin Donnelly Work Phone: [facility] Payers Date Payer Category Payer Self-pay [id number] 2018 Medicare MEDICARE MEDICAR E A AND B [id number] 2018-Present [phone] [place] [address] Medicare [id number] 2018 Medicare [id number] 2018 Private Health Insurance MMO MED ICARE SUPPLEMENT [id number] 2018 Unknown MMO MMO MEDICARE SUPPLEMENT [id number] 2018-Present [phone] [address] [place] [address] Indemnity [id number] 2018 Unknown MMO MMO MEDICARE SUPPLEMENT [id number] 2018-Present [phone] [address] [place] [address] Indemnity [id number] 2018 Medicare [id number] 2009 Unknown [id number] Medicaid [id number] Unknown [id number] Unknown [id number] 2.16.840.1.074471.3.579.2. 462 Unknown [id number] 2.16.840.1.048073.3.579.2. 462 Unknown [id number] 2.16.840.1.638284.3.579.2. 462 Unknown [id number] 2.16.840.1.891990.3.579.2. 462 Unknown [id number] 2.16.840.1.535497.3.579.2. 462 Unknown [id number] 2.16.840.1.652902.3.579.2. 462 Unknown [id number] 2.16.840.1.532905.3.579.2. 462 Unknown [id number] 2.16.840.1.710447.3.579.2. 462 Unknown [id number] 2.16.840.1.160128.3.579.2. 462 Unknown [id number] 2.16.840.1.827913.3.579.2. 462 Unknown [id number] 2.16.840.1.397296.3.579.2. 462 Unknown [id number] 2.16.840.1.387470.3.579.2. 462 Unknown [id number] 2.16.840.1.343521.3.579.2. 462 Unknown [id number] 2.16.840.1.570864.3.579.2. 462 Unknown [id number] 2.16840.1.446330.3.579.2. 462 Unknown [id number] 2.16.840.1.603332.3.579.2. 462 Unknown [id number] 2.840.1.296323.3.579.2. 462 Unknown [id number] 2.840.1.677787.3.579.2. 462 Unknown [id number] 2.840.1.724937.3.579.2. 462 Unknown [id number] 2.840.1.121735.3.579.2. 462 Unknown [id number] 2.840.1.794130.3.579.2. 462 Unknown [id number] 2.840.1.655664.3.579.2. 462 Unknown [id number] 2.840.1.653827.3.579.2. 462 Unknown [id number] 2.840.1.048238.3.579.2. 462 Unknown [id number] 2.840.1.475958.3.579.2. 462 Unknown [id number] 2.840.1.053249.3.579.2. 462 Unknown [id number] 2..840.1.408905.3.579.2. 462 Unknown [id number] 2.840.1.825037.3.579.2. 462 Unknown [id number] 2.840.1.182858.3.579.2. 462 Unknown [id number] 2.16.840.1.787929.3.579.2. 462 Unknown [id number] 2.16.840.1.097042.3.579.2. 462 Unknown [id number] 2.16.840.1.052517.3.579.2. 462 Unknown [id number] 2.16.840.1.212249.3.579.2. 462 Unknown [id number] 2.16.840.1.598899.3.579.2. 462 Unknown [id number] 2.16.840.1.937418.3.579.2. 462 Unknown [id number] 2.16.840.1.284302.3.579.2. 462 Unknown [id number] 2.16.840.1.978343.3.579.2. 462 Unknown [id number] 2.16840.1.380565.3.579.2. 462 Unknown [id number] 2.16.840.1.236331.3.579.2. 462 Unknown [id number] 2.16.840.1.902849.3.579.2. 462 Unknown [id number] 2.16.840.1.160976.3.579.2. 462 Unknown [id number] 2.16.840.1.723642.3.579.2. 462 Unknown [id number] 2.16.840.1.618823.3.579.2. 462 Unknown [id number] 2.16.840.1.786115.3.579.2. 462 Unknown [id number] 2.16.840.1.568219.3.579.2. 462 Unknown [id number] 2.16.840.1.746548.3.579.2. 462 Unknown [id number] 2.16.840.1.297325.3.579.2. 462 Unknown [id number] 2.16.840.1.997025.3.579.2. 462 Unknown [id number] 2.16.840.1.038350.3.579.2. 462 Unknown [id number] 2.16.840.1.760240.3.579.2. 462 Unknown [id number] 2.16.840.1.187348.3.579.2. 462 Unknown [id number] 2.16.840.1.035820.3.579.2. 462 Unknown [id number] 2.16.840.1.597011.3.579.2. 462 Unknown [id number] 2.16.840.1.534916.3.579.2. 462 Unknown [id number] 2.16.840.1.243926.3.579.2. 462 Unknown [id number] 2.16.840.1.265528.3.579.2. 462 Unknown [id number] 2.16.840.1.247831.3.579.2. 462 Unknown [id number] 2.16.840.1.639768.3.579.2. 462 Unknown [id number] 2.16.840.1.349322.3.579.2. 462 Unknown [id number] 2.16.840.1.264332.3.579.2. 462 Unknown [id number] 2.16.840.1.525675.3.579.2. 462 Unknown [id number] 2.16.840.1.954557.3.579.2. 462 Unknown [id number] 2.16.840.1.826647.3.579.2. 462 Unknown [id number] 2.16.840.1.252560.3.579.2. 462 Unknown [id number] 2.16.840.1.121912.3.579.2. 462 Social History Date Type Detail Facility [facility] Work Phone: Start: 05-12-2021 End: 03-10-2023 Tobacco smoking status WAIS Unknown if ever smoked [facility] Start: 06-20-2020 Rare [facility] Start: 06-20-2020 None [facility] Start: 06-20-2020 Homeless [facility] Start: 06-20-2020 Non-smoker [facility] Start: 1955 Sex Assigned At Female W [facility] Start: 12-23-2021 End: 09-06-2024 Tobacco smoking status NHIS Ex-smoker [facility] Start: 10-29-1975 End: 10-29-1995 History of tobacco use Current smoker [facility] Start: 10-29-1975 End: 10-29-1995 History of tobacco use Cigarette Smoker [facility] Start: 09-12-2021 End: 05-01-2024 Alcohol intake Current non-drinker of alcohol (finding) [facility] Start: 1955 Sex Assigned At Not on file [facility] Start: 12-23-2021 End: 09-16-2022 Cigarettes smoked current (pack per day) - Reported 1 [facility] Start: 12-23-2021 End: 10-03-2023 Tobacco use and exposure Smokeless tobacco non-user [facility] Start: 09-16-2022 End: 05-01-2024 Tobacco use panel [facility] Work Phone: National Score (1-10 0), lower number is lower risk 67 [facility] Start: 05-30-2024 Sex Female (finding) [facility] Medical Equipment Procedure Code Equipment Code Equipment Origin al Text Equipment Identifier Dates Minimally invasive total replacement of hip joint by anterior approach ([id number]) ()[id number]( [id number] FDA Start: 06-24-2021 Minimally invasive total replacement of hip joint by anterior approach ([id number]) ()[id number]( [id number] FDA Start: 06-24-2021 Minimally invasive total replacement of hip joint by anterior approach ([id number]) ()[id number]( [id number] FDA Start: 06-24-2021 Minimally invasive total replacement of hip joint by anterior approach ([id number]) ()[id number] FDA Start: 06-24-2021 Minimally invasive total replacement of hip joint by anterior approach ([id number]) ()[id number] FDA Start: 06-24-2021 Goals Date Patient Goal Desired Activity /State Functional Status Date Assessment Result Facility 07-15-2021 Functional status Independent [facility] Work Phone: 07-14-2021 Functional status Ambulates;Up ad starla [facility] Work Phone: 07-07-2021 Functional status Ambulates [facility] Work Phone: 07-06-2021 Functional status Ambulates [facility] Work Phone: 07-05-2021 Functional status Ambulates [facility] Work Phone: 07-03-2021 Functional status With Assist of 2 [facility] Work Phone: 06-26-2021 Functional status Ambulates [facility] Work Phone: 12-30-2016 Are you deaf, or do you have serious difficulty hearing No 12/30/2016 6:40 PM Poonam Beckford RN No [facility] 12-30-2016 Are you blind, or do you have serious difficulty seeing, even when wearing glasses No 12/30/2016 6:40 PM Poonam Beckford, [place] No [facility] 12-30-2016 Do you have serious difficulty walking or climbing stairs Yes 12/30/2016 6:40 PM Poonam Beckford, [place] Yes [facility] 12-30-2016 Do you have difficul ty dressing or bathing Yes 12/30/2016 6:40 PM Poonam Beckford, RN Yes [facility] 12-30-2016 Because of a physica l, mental, or emotional condition, do you have difficulty doing errands alone such as visiting a physician's office or shopping Yes 12/30/2016 6:40 PM Poonam Beckford RN Yes [facility] Mental Status Date Assessment Result Facility 09-06-2024 Cognitive function Awake;Alert;A ppropriate;Fol lows Commands [facility] Work Phone: 09-05-2024 Cognitive function Awake;Alert;A ppropriate;Fol lows Commands [facility] Work Phone: 09-12-2021 Cognitive function Level Of Cons ciousness Awake;Alert;Appropriate;Fol lows Commands [facility] Work Phone: 07-15-2021 Cognitive function Voice/Name [facility] Work Phone: 07-15-2021 Cognitive function Appropriate;[facility] Work Phone: 07-13-2021 Cognitive function Voice/Name [facility] Work Phone: 07-07-2021 Cognitive function Voice/Name;Touch/Shaki ng [facility] Work Phone: 07-06-2021 Cognitive function Voice/Name [facility] Work Phone: 07-04-2021 Cognitive function Voice/Name [facility] Work Phone: 07-03-2021 Cognitive function Voice/Name [facility] Work Phone: 06-29-2021 Cognitive function Appropriate;[facility] Work Phone: 06-26-2021 Cognitive function Voice/Name [facility] Work Phone: 05-12-2021 Cognitive function Awake;Alert;A ppropriate;Fol lows Commands [facility] Work Phone: 12-30-2016 Because of a physica l, mental, or emotional condition, do you have serious difficulty concentrating, remembering, or making decisions No 12/30/2016 6:40 PM Poonam Beckford RN No [facility] Clinical Notes 08-03-2012 to 09-06-2024 Note Date & Type Note Facility 09-06-2024 Radiology Diagnostic study note [facility] 09-06-2024 Discharge summary Note Date/Time September 06, 2024 5:08pm [facility] Medical Records Department [address] [place] [address] Emergency Department Summary 09/06/24 MR#: [id number] Acct: [id number] Name: LAURA STARK Rep #:[id number] : 1955 69 From: Genevieve Thomas PCP: Dr. Moreno Donnelly MD Status :REG ER Location: ED HPI History of Present Illness Chief Complaint: Fever Informant: patient Narrative Narrative: Patient is a 69-year-old female with history of diabetes mellitus, bronchiectasis, atrial fibrillation, pulmonary emboli (on Eliquis and has not missed any doses), obstructive sleep apnea, hypertension and hyperlipidemia presenting for fever, nausea and vomiting. Patient follows with Dr. Lolis velasco started on IV cefepime through the infusion center yesterday. She notes that since June she has been sick with an ongoing cough and intermittent fevers. She has had arthralgias and myalgias. She did sputum culture that grew drug-resistant Pseudomonas that was indeterminant sensitivity to Levaquin. She has already been on 10 days of aerosolized tobramycin and states that she is compliant with her medications. She also has a percussion vest. She notes after getting home from her first dose of IV antibiotics yesterday she had multiple episodes of vomiting. She states that she vomited hourly till 5 or 6 AM. She has associated headache and fever. She did not take any antipyretics prior to arrival. She notes that she had lab work yesterday. She denies any associated abdominal pain or urinary symptoms. States she generally feels weak. Came in for further evaluation. [facility] Medical History Pseudomonas pneumonia Asthma exacerbation in COPD Pneumonia Hypoxia Morbid obesity with BMI of 40.0-44.9, adult UTI (urinary tract infection) Necrosis Venous ulcer Essential hypertension Hyperlipidemia Asthma Iron deficiency anemia Vitamin D deficiency Chronic diastolic congestive heart failure Hypothyroidism Allergic rhinitis Gastroesophageal reflux disease History of COPD History of diabetes mellitus Atrial fibrillation Hypertension Easy bruising History of stress test History of echocardiogram Cardiology follow-up encounter Wears glasses Anxiety Diabetes Walker as ambulation aid History of renal disease Anemia Migraine headache Back pain Injury of back Shortness of breath on exertion History of edema Pain of left hip Bronchiectasis with (acute) exacerbation High cholesterol Hypothyroidism Kidney disease Former smoker Congestive heart failure (CHF) Hypertension Hypoxemia Bronchiectasis Pneumonia due to Pseudomonas Cough Palpitations Chronic diastolic heart failure GAGAN (obstructive sleep apnea) Septic shock 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 COPD with acute exacerbation Lung nodule Thrush, oral History of DVT (deep vein thrombosis) Abnormal chest CT Shortness of breath Cavitary lesion of lung Aspiration into airway Obesity Chronic respiratory failure Precordial chest pain Paroxysmal atrial tachycardia Right foot pain MRSA pneumonia Venous thromboembolism (VTE) Hyperlipidemia Diabetes mellitus HCAP (healthcare-associated pneumonia) Severe sepsis Coarse tremors Weakness Acute respiratory failure DVT (deep venous thrombosis) Pulmonary embolism Allergic rhinitis Insomnia Steroid myopathy Atrial fibrillation with rapid ventricular response Pneumonia ALEXYS (acute kidney injury) PVD (peripheral vascular disease) Atrial tachycardia Morbid obesity Acute bronchiolitis Tachycardia Hx pulmonary embolism Cellulitis of right lower extremity Umbilical hernia Gastroesophageal reflux disease COLD (chronic obstructive lung disease) Benign essential HTN Home Medications ?Medication ?Instructions ?Recorded ?Last Taken ?Type levothyroxine 25 mcg tablet 25 mcg PO DAILY@0600 thyro id 01/04/20 01/09/24 History cholecalciferol (vitamin D3) 50 50 mcg PO DAILY SUPPLE MENT 09/19/20 07/04/21 05:54 History mcg (2,000 unit) capsule furosemide 40 mg tablet (Lasix) 40 mg PO BID water pil l 09/19/20 07/04/21 05:52 History esomeprazole magnesium 40 mg 40 mg PO DAILY reflux 01/09/24 History capsule,delayed release (Nexium) potassium chloride 20 mEq 20 meq PO BID supplement 01/09/24 History tablet,extended release(part/cryst) ferrous sulfate 325 mg (65 mg 325 mg PO DAILY anemia 0 06/26/21 01/09/24 History iron) tablet acetaminophen 500 mg tablet 1,000 mg (2 x 500 mg) PO Q 8 PRN 07/14/21 01/09/24 Rx pain of temp > 101 #0 tabs albuterol sulfate 2.5 mg/3 mL 2.5 mg (3 mL) inhalation Q4H PRN 05/17/22 Unknown Rx (0.083 %) solution for nebulization breathing #180 via ls ipratropium bromide 42 mcg (0.06 2 spray intranasal TI D PRN DRY NOSE 03/10/23 Unknown History %) nasal spray latanoprost 0.005 % eye drops 1 drp ophthalmic (eye) Q PM 03/10/23 Unknown History albuterol sulfate 90 mcg/actuation 2 puff inhalation Q 4H PRN 09/14/23 Unknown Rx aerosol inhaler (Ventolin HFA) shortness of breath or wheezing #3 ea semaglutide (weight loss) 0.5 1 mg subcut QWEEK Unknown History mg/0.5 mL subcutaneous pen injector montelukast 10 mg tablet 10 mg PO QHS asthma #90 tabs 11/29/23 Unknown Rx (Singulair) fluticasone propionate 230 2 puff inhalation BID lungs #3 ea 12/07/23 Unknown Rx mcg-salmeterol 21 mcg/actuation HFA inhaler (Advair HFA) apixaban 5 mg tablet (Eliquis) 5 mg PO BID anticoagula nt #180 tabs 05/16/24 Unknown Rx diltiazem HCl 180 mg 180 mg PO DAILY heart #90 ca ps 05/16/24 Unknown Rx capsule,extended release 24 hr (Cardizem CD) rosuvastatin 5 mg tablet 5 mg PO QDAY #90 tabs Unknown Rx ondansetron 4 mg disintegrating 4 mg PO Q6H PRN nausea and 09/06/24 Unknown Rx tablet vomiting #20 tabs Allergy/AdvReac Type Severity Reaction Status Date / Time chlorhexidine (From Allergy Severe Hives Verified 09/06/24 12:36 ChloraPrep Clear) isopropyl alcohol (From Allergy Severe Hives Verified 09/06/24 12:36 ChloraPrep Clear) adhesive Allergy SKIN Verified 09/06/24 12:36 TEARS. PAPER TAPE [place] azithromycin (From Zithromax) Allergy Rash Verified 09/06/24 12:36 cefuroxime sodium (From Allergy Rash Verified 09/06/24 12:36 Zinacef) clindamycin Allergy Hives Verified 09/06/24 12:36 Sulfa (Sulfonamide Allergy Rash Verified 09/06/24 12:36 Antibiotics) atenolol AdvReac Severe Peripheal Verified 09/06/24 12:36 edema & cough metoprolol (From Toprol XL) AdvReac Severe Peripheral Verified 09/06/24 12:36 edema & cough duloxetine (From Cymbalta) AdvReac Intermediate made me Verified 09/06/24 12:36 feel really sick nitrofurantoin AdvReac Mild unknown Verified 09/06/24 12:36 macrocrystalline (From Macrodantin) atorvastatin AdvReac Unknown myalgias Verified 09/06/24 12:36 Corticosteroids AdvReac Other Verified 09/06/24 12:36 (Glucocorticoids) oxycodone HCl (From Percocet) AdvReac Vomiting Verified 09/06/24 12:36 Family History Mother Hypertension Diabetes Heart disease Pulmonary embolism Father Perforated ulcer Respiratory failure Sister Asthma Hypertension Surgical History History of total left hip replacement Status post total hip replacement, left Status post hip replacement S/P hip replacement Hx of vein stripping S/P hysterectomy History of appendectomy History of cardioversion (~12/2016) History of left heart catheterization H/O hernia repair H/O foot surgery H/O shoulder surgery H/O section H/O: hysterectomy Social History household members: none Smoking Status: Former smoker quit date: 02/14/75 pack-years: 3 second hand exposure: No alcohol intake: never substance use type: does not use caffeine: No what type of physical activity do you participate in: none ROS ROS ED Constitutional Constitutional ED: Reports chills and fever(s) Eyes Eyes: Denies change in vision ENT ENT ED: Denies rhinorrhea or sore throat Cardiovascular Cardiovascular: Denies chest pain Respiratory/Chest Respiratory/Chest: Reports cough, dyspnea and sputum Gastrointestinal Gastrointestinal: Reports nausea and vomiting; Denies abdominal pain Genitourinary Genitourinary ED: Denies dysuria or urinary frequency Musculoskeletal Musculoskeletal: Reports arthralgias and myalgias Integumentary Denies rash Neurologic Neurologic: Reports weakness Hematologic/Lymphatic Hematologic/Lymphatic: Reports easy bleeding, easy bruising and other Details: On Eliquis EXAM Physical Exam Const Vital Signs: 09/06/24 12:37 09/06/24 12:51 09/06/24 12:51 Temperature 101.3 F H 98.7 F Temperature Source Oral Oral Pulse Rate 121 H 114 H Respiratory Rate 22 H 17 Respiratory Effort Normal Short of Breath Blood Pressure 101/69 107/53 L Blood Pressure Mean 79 71 Pulse Ox 95 99 Oxygen Delivery Method Room Air 09/06/24 13:39 09/06/24 13:57 09/06/24 14:00 Temperature 98.9 F 98.9 F Temperature Source Oral Oral Pulse Rate 108 H 108 H Respiratory Rate 12 15 Respiratory Effort Blood Pressure 109/51 L 108/78 Blood Pressure Mean 70 88 Pulse Ox 96 99 Oxygen Delivery Method Room Air Room Air Room Air 09/06/24 15:00 09/06/24 16:00 Temperature 98.9 F 98.9 F Temperature Source Oral Oral Pulse Rate 113 H 101 H Respiratory Rate 22 H 16 Respiratory Effort Blood Pressure 119/59 L 110/57 L Blood Pressure Mean 79 74 Pulse Ox 95 96 Oxygen Delivery Method Room Air Room Air Positive well nourished and well developed General Appearance ED: well developed and NAD HEENT Reports dry mucous membranes Mouth ED: Yes dry mucous membranes Mouth: dry mucous membranes Eyes PERRL Neck supple and no JVD Chest Wall inspection of chest normal Resp normal respiratory effort Resp Narrative: Course breath sounds with scattered rales. No significant wheezing present. Cardio regular rhythm and no murmurs Rate: tachycardic GI normal to inspection, nondistended, normoactive bowel sounds and non-tender Extremity Extremity Narrative: Chronic venous stasis changes of the lower extremities with thickening of the skin more pronounced on the left lower leg. No drainage present. No specific warmth or cellulitic changes. 2+ bilateral pedal edema Neuro oriented x3 Sensorium / Orientation: alert Motor Exam: general weakness Psych mental status grossly normal Skin Skin Narrative: Chronic venous stasis changes of the bilateral legs, no other rash appreciated MDM MDM MDM Narrative Medical decision making narrative: Patient valuated for continued fever, cough as well as now nausea and vomiting. She received her first dose of IV cefepime through the infusion center yesterdayand subsequently developed vomiting with it. She notes she is continue to have the fever and headache for the past 3 months and that is why she is on the IV antibiotics in addition to positive sputum culture. Upon arrival patient is tachycardic and febrile. She is hemodynamically stable in the emergency room. She appears mildly dehydrated. Patient is given IV fluids and Tylenol as well as Zofran. Septic workup including CBC, CMP, urinalysis and lactate is obtained. In addition CT of the chest is obtained to look for any type of lung abscess or more severe infection. CT of the abdomen pelvis is obtained looking for obstruction or intra-abdominalinfection that could be causing the patient's recurrent fevers. Patient reevaluated. She feels much improved after Zofran, Tylenol and fluids. Lab work largely unremarkable. Lactate normal. Urinalysis extensive infection. CT of the chest abdomen pelvis shows a stable pulmonary nodule but no other acute process. I spoke with the patient as well as her gage designer, Dr. Rodrigues, who are bothcomfortable with her receiving a dose of cefepime here and gave prescription forZofran as tolerated. Plan is to give infusion of cefepime in the ER and as longas she does not have severe nausea/vomiting can be discharged home with continued outpatient follow-up with pulmonology and at the infusion center. Given that the fevers or subacute we do not think she particularly needs admission for this however down the road ultimately she might if she cannot tolerate course of IV antibiotics through the infusion center. Anticipate discharge home prescription Zofran as long as patient can tolerate p.o. after cefepime infusion. Lab Data Attestation: I reviewed the patient's lab results. Labs: Laboratory Results - last 24 hr 09/06/24 09/06/24 12:57 14:44 WBC 9.8 RBC 3.83 L Hgb 11.2 L Hct 36.0 L MCV 94.0 MCH 29.2 MCHC 31.1 L RDW Std Deviation 51.6 H RDW Coeff of Lanre 14.9 H Plt Count 437 MPV 9.6 Immature Gran % (Auto) 0.400 Neut % (Auto) 88.9 H Lymph % (Auto) 5.0 L [place] % (Auto) 4.6 Eos % (Auto) 0.9 Baso % (Auto) 0.2 Absolute Neuts (auto) 8.7 H Absolute Lymphs (auto) 0.49 L Nucleated RBC % 0 PT 16.9 H INR 1.3 APTT 31.1 Sodium 144 Potassium 3.5 Chloride 107 Carbon Dioxide 21.9 Anion Gap 15 BUN 20 H Creatinine 1.29 H Est GFR (MDRD) Non-Af 45 L BUN/Creatinine Ratio 15.1 Glucose 102 H Lactic Acid < 1.0 Calcium 9.3 Total Bilirubin 0.40 AST 17 ALT < 5 Alkaline Phosphatase 98 Total Creatine Kinase 41 Total Protein 7.2 Albumin 3.5 Globulin 3.7 Albumin/Globulin Ratio 1.0 Urine Color Yellow Urine Clarity Clear Urine pH 6.0 Ur Specific [place] 1.015 Urine Protein 30 H Urine Glucose (UA) Normal Urine Ketones Negative Urine Occult Blood 10 H Urine Nitrite Negative Urine Bilirubin Negative Urine Urobilinogen Normal Ur Leukocyte Esterase 25 H Urine RBC 0 SEEN Urine WBC 0-5 SEEN Ur Squamous Epith Cells 0 SEEN Ur Transition Epith Cell 0-5 SEEN Urine Bacteria 0 SEEN Urine Mucus 0 SEEN Radiography Diagnostic Testing: Clinical Impression(s) from Imaging Studies Chest/Abdomen/Pelvis CT 09/06/24 14:15 IMPRESSION: CT chest: 1. No acute thoracic finding given limitations. 2. Stable bilateral pulmonary nodules, unchanged over several years. CT abdomen/pelvis: No acute abdominopelvic finding. Reading Location: [facility] Rhythm Strip Rhythm Strip: Sinus Tach Rate: 112 Ectopy: None EKG Initial EKG: Attestation: I personally reviewed and interpreted this EKG as follows: Interpretation: Sinus Tachycardia Comments: Sinus tachycardia at a rate of 112 bpm PACs Left anterior fascicular block Normal axis Normal intervals Normal ST segments Management Discussion w/another healthcare provider: Order Booker (Pulmonology ) Discharge Plan Triage Chief Complaint: Fever ED Provider: Genevieve Bailey Dx/Rx/DC Orders Clinical Impression: Fever, Nausea and vomiting, Infection, Pseudomonas, Pulmonary nodule Instructions: ED Fever Control (Adult), ED Vomiting (Adult) Prescriptions: New ondansetron 4 mg tablet,disintegrating 4 mg PO Q6H PRN (Reason: nausea and vomiting) Qty: 20 0RF No Action esomeprazole magnesium [Nexium] 40 mg capsule,delayed release(DR/EC) 40 mg PO DAILY potassium chloride 20 mEq tablet,ER particles/crystals 20 meq PO BID semaglutide (weight loss) 0.5 mg/0.5 mL pen injector 1 mg subcut QWEEK Rx Instructions: administer weeks 5 through 8 of therapy latanoprost 0.005 % drops 1 drp ophthalmic (eye) QPM Rx Instructions: BOTH EYES ipratropium bromide 42 mcg (0.06 %) spray,non-aerosol 2 spray intranasal TID PRN (Reason: DRY NOSE) Eliquis 5 mg tablet 5 mg PO BID Qty: 180 3RF diltiazem HCl [Cardizem CD] 180 mg capsule,extended release 24hr 180 mg PO DAILY Qty: 90 3RF Rx Instructions: Hold for heart less than 60 or systolic blood pressure less than 100 mmHg. levothyroxine 25 mcg tablet 25 mcg PO DAILY@0600 Patient Comments: thyroid furosemide [Lasix] 40 mg tablet 40 mg PO BID cholecalciferol (vitamin D3) 50 mcg (2,000 unit) Capsule 50 mcg PO DAILY ferrous sulfate 325 MG tablet 325 mg PO DAILY Rx Instructions: Take 1 hour before doxycycline or in empty stomach while patient is on doxycycline to avoid drug drug interaction. acetaminophen 500 mg tablet 1,000 mg PO Q8 PRN (Reason: pain of temp > 101) Qty: 0 0RF albuterol sulfate 2.5 mg /3 mL (0.083 %) solution for nebulization 2.5 mg INHALATION Q4H PRN Qty: 180 6RF Rx Instructions: Use q4 hours and PRN for wheezing albuterol sulfate [Ventolin HFA] 90 mcg/actuation HFA aerosol inhaler 2 puff inhalation Q4H PRN (Reason: shortness of breath or wheezing) Qty: 3 3RF montelukast [Singulair] 10 mg tablet 10 mg PO QHS Qty: 90 3RF fluticasone propion-salmeterol [Advair HFA] 230-21 mcg/actuation HFA aerosol inhaler 2 puff INHALATION BID Qty: 3 3RF rosuvastatin 5 mg tablet 5 mg PO QDAY Qty: 90 3RF Primary Care Provider: Moreno Donnelly Referrals: Moreno Donnelly MD [Primary Care Provider] - Activity Restrictions/Additional Instructions: Please follow-up with Dr. Ambrocio tomorrow as scheduled. Use Zofran as needed to treat nausea. Push fluids at home. Continue take Tylenol as needed for fever. Continue with infusion. If you are not tolerating antibiotics and may need to switch to a different 1 but this might require increased frequency. Print Language: Trinidadian Disposition Disposition: Home, Self Care What to do if you have Problems For any increased pain, shortness of breath, bleeding, nausea or vomiting, chestpain, or any unexpected problems, contact your Primary Care Provider. Call [facility] ([phone]) or report to the closest Emergency Room. Call 911 if necessary. 09/06/24 1708 <Electronically signed by Genevieve Bailey DO> Cosigner Signature (if applicable): CC: Dr. Moreno Donnelly MD ~ Signed [facility] Work Phone: 1(377) 848-824406-20-2025 Radiology Diagnostic study [facility]05-23-2025 Radiology Diagnostic study [facility]04-02-2025 Evaluation note* Diagnosis Onset Date Resolution Status Admit Date Essential hypertension chronic Ap [facility] 2024 2:39pm Heart failure with preserved ejection fraction chronic May 16 2:39pm Hyperlipidemia chronic May 16, 2024 2:39pm PAF (paroxysmal atrial fibrillation) chronic May 16, 2024 2:39pm [facility] Work Phone: 1(826) 131-939003-20-2025 Evaluation note* Diagnosis Onset Date Resolution Status Admit Date Leg length discrepancy acute Ma [facility] 2024 9:40am Lumbar scoliosis acute May 032024 9:40am Neuropathy acute May 03 9:40am Osteopenia determined by x-ray acute May 03, 2024 9:40am Spondylolisthesis, lumbar region acu te May 03, 2024 9:40am Essential hypertension chronic Ap [facility] 2024 2:39pm Heart failure with preserved ejection fraction chronic May 16 2:39pm Hyperlipidemia chronic May 16, 2024 2:39pm PAF (paroxysmal atrial fibrillation) chronic May 16, 2024 2:39pm [facility] Work Phone: 1(161) 296-911503-18-2025 NoteHNO ID: [id number] Author: LINDA RESTREPO APRN.CNM Service: ? Author Type: Dock Grader Type: Progress Notes Filed: 05/07/2024 08:58 Note Text: Laura Stark is a 69 year old female who presents for problem visit for HPI: Presents today vulvar lump. Denies any pain, drainage or trauma to the area. Is not able to visualize but feels it present. Wears pads due to incontinence. Feels this started a few weeks ago. 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 DVT (deep venous thrombosis) (HCC) 1995 Rt lower leg Embolism and thrombosis of unspecified site 10/28/2005 PE (pulmonary embolism) Recurrent ventral incisional hernia 08/03/2012 Sepsis ([facility]) Unspecified asthma(493.90) Unspecified essential hypertension PAST SURGICAL HISTORY Procedure Laterality Date APPENDECTOMY DELIVERY ONLY , low cervical COLONOSCOPY FLX DX W/COLLJ SPEC WHEN PFRMD 01-09-13 DEBRIDEMENT SUBCUTANEOUS TISSUE 20 SQ CM/< 02-10-12 ENTEROLSS FRING INTSTINAL ADHESION SPX 03-24-12 FILTER PLACEMENT (VENA CAVA) 01-15-13 FNA WITH IMAGING 05/26/11 U/S FNA left thyroid nodule IMPLANT MESH OPN HERNIA RPR/DEBRIDEMENT CLOSURE 01-31-12 INSJ NON-TUNNELED CENTRAL VENOUS CATH AGE 4 YR/> -8-13 LAPS RPR RECURRENT INCAL HRNA NCRC8/STRANGULATED 01-18-13 PAST SURGICAL HISTORY OF 2003 right ankle surgery-fusion PAST SURGICAL HISTORY OF 2009 right shoulder partial replacement RPR 1ST INCAL/VNT HERNIA INCARCERATED 01-31-12 TOTAL ABDOMINAL HYSTERECT W/WO RMVL TUBE OVARY 1996 Hysterectomy, RONN TRANSCATH RETRIEVAL,PERCUT 02-21-13 FILTER REMOVAL FAMILY HISTORY Problem Relation Age of Onset Diabetes Mother Hypertension Mother Ischemic Heart Disease Mother Cancer Father skin Hypertension Father Diabetes Sister Hypertension Sister Diabetes Sister Hypertension Sister Blood Clots Sister Diabetes Sister Hypertension Sister Cancer Maternal Grandmother colon Hypertension Maternal Grandfather Ischemic Heart Disease Maternal Grandfather Diabetes Maternal Grandfather Cancer Paternal Grandfather leukemia Colon Cancer Maternal Uncle Colon Cancer Maternal Uncle Social History Tobacco Use Smoking status: Former Current packs/day: 0.00 Average packs/day: 1 pack/day for 20.0 years (20.0 ttl pk-yrs) Types: Cigarettes Start date: 10/29/1975 Quit date: 10/29/1995 Years since quittin.5 Smokeless tobacco: Never Vaping Use Vaping status: Never Used Substance Use Topics Alcohol use: No Drug use: No Current Outpatient Medications Medication Sig semaglutide, weight loss, (WEGOVY) 1 mg/0.5 mL pen injector Inject 1 mg subcutaneously one time a week. Compound formula atorvastatin (LIPITOR) 10 mg tablet famotidine (PEPCID) 40 mg tablet Take 40 mg by mouth. latanoprost (XALATAN) 0.005 % ophthalmic solution levothyroxine (SYNTHROID) 25 mcg tablet esomeprazole (NEXIUM) 40 mg capsule Take 40 mg by mouth DAILY (6 AM). Cholecalciferol, Vitamin D3, 50 mcg (2,000 unit) cap Take by mouth. acetaminophen (TYLENOL) 500 mg tablet Take 1,000 mg by mouth twice daily. fluticasone-salmeterol HFA (ADVAIR) 230-21 mcg/actuation inhaler Inhale 2 Puffs as instructed twice daily. furosemide (LASIX) 20 mg tablet Take 20 mg by mouth twice daily. Pt is taking 30 mg daily potassium chloride ER (K-DUR, KLOR-CON) 20 mEq tablet Take 20 mEq by mouth twice daily. L. acidophilus/Bifid. animalis (DAILY PROBIOTIC ORAL) Take by mouth. diltiazem CD (CARDIZEM CD) 180 mg 24 hr capsule Take 2 capsules by mouth once daily. apixaban (ELIQUIS) 5 mg tab tab(s) Take 1 tablet by mouth twice daily. albuterol (PROVENTIL) 2.5 mg /3 mL (0.083 %) nebulizer solution Use 2.5 mg via nebulizer every 4 hours as needed. montelukast (SINGULAIR) 10 mg tablet Take 10 mg by mouth daily at bedtime. fluticasone (FLONASE) 50 mcg/actuation nasal spray Use 1 [place] in each nostril twice daily. acetaminophen 650 mg CR tablet Take 1,300 mg by mouth at bedtime as needed. albuterol HFA (PROVENTIL HFA, VENTOLIN HFA) 90 mcg/actuation inhaler Inhale 2 Puffs as instructed every 4 hours as needed. ondansetron orally disintegrating (ZOFRAN ODT) 4 mg disintegrating tablet (Patient not taking: Reported on 10/03/2023) clobetasol (TEMOVATE) 0.05 % cream Apply to affected area 2x/day for 2 weeks, then 1x/day for a week. (Patient not taking: Reported on 05/01/2024) docosahexaenoic acid/epa (FISH OIL ORAL) Take by mouth. (Patient not taking: Reported on 10/29/2022) L.acidoph-B.lactis-B.longum (FLORAJEN3) 460 mg (7.5-6- 1.5 bill. cell) cap Take 1 capsule by mouth once daily. ( (more content not included)...[facility]03-18-2025 History of Present illness Narrative* Linda Restrepo APRN.HONEY - 05/01/2024 12:52 PM EDT Laura Stark is a 69 year old female who presents for problem visit for HPI: Presents today vulvar lump. Denies any pain, drainage or trauma to the area. Is not able to visualize but feels it present. Wears pads due to incontinence. Feels this started a few weeks ago. 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 DVT (deep venous thrombosis) ([facility]) 1995 Rt lower leg Embolism and thrombosis of unspecified site 10/28/2005 PE (pulmonary embolism) Recurrent ventral incisional hernia 08/03/2012 Sepsis (HCC) Unspecified asthma(493.90) Unspecified essential hypertension PAST SURGICAL HISTORY Procedure Laterality Date APPENDECTOMY DELIVERY ONLY , low cervical COLONOSCOPY FLX DX W/COLLJ SPEC WHEN PFRMD 01-09-13 DEBRIDEMENT SUBCUTANEOUS TISSUE 20 SQ CM/< 02-10-12 ENTEROLSS FRING INTSTINAL ADHESION SPX 03-24-12 FILTER PLACEMENT (VENA CAVA) 01-15-13 FNA WITH IMAGING 05/26/11 U/S FNA left thyroid nodule IMPLANT MESH OPN HERNIA RPR/DEBRIDEMENT CLOSURE 01-31-12 INSJ NON-TUNNELED CENTRAL VENOUS CATH AGE 4 YR/> -- LAPS RPR RECURRENT INCAL HRNA NCRC8/STRANGULATED 01-18-13 PAST SURGICAL HISTORY OF 2003 right ankle surgery-fusion PAST SURGICAL HISTORY OF 2009 right shoulder partial replacement RPR 1ST INCAL/VNT HERNIA INCARCERATED 01-31-12 TOTAL ABDOMINAL HYSTERECT W/WO RMVL TUBE OVARY 1996 Hysterectomy, RONN TRANSCATH RETRIEVAL,PERCUT 02-21-13 FILTER REMOVAL FAMILY HISTORY Problem Relation Age of Onset Diabetes Mother Hypertension Mother Ischemic Heart Disease Mother Cancer Father skin Hypertension Father Diabetes Sister Hypertension Sister Diabetes Sister Hypertension Sister Blood Clots Sister Diabetes Sister Hypertension Sister Cancer Maternal Grandmother colon Hypertension Maternal Grandfather Ischemic Heart Disease Maternal Grandfather Diabetes Maternal Grandfather Cancer Paternal Grandfather leukemia Colon Cancer Maternal Uncle Colon Cancer Maternal Uncle Social History Tobacco Use Smoking status: Former Current packs/day: 0.00 Average packs/day: 1 pack/day for 20.0 years (20.0 ttl pk-yrs) Types: Cigarettes Start date: 10/29/1975 Quit date: 10/29/1995 Years since quittin.5 Smokeless tobacco: Never Vaping Use Vaping status: Never Used Substance Use Topics Alcohol use: No Drug use: No Current Outpatient Medications Medication Sig semaglutide, weight loss, (WEGOVY) 1 mg/0.5 mL pen injector Inject 1 mg subcutaneously one time a week. Compound formula atorvastatin (LIPITOR) 10 mg tablet famotidine (PEPCID) 40 mg tablet Take 40 mg by mouth. latanoprost (XALATAN) 0.005 % ophthalmic solution levothyroxine (SYNTHROID) 25 mcg tablet esomeprazole (NEXIUM) 40 mg capsule Take 40 mg by mouth DAILY (6 AM). Cholecalciferol, Vitamin D3, 50 mcg (2,000 unit) cap Take by mouth. acetaminophen (TYLENOL) 500 mg tablet Take 1,000 mg by mouth twice daily. fluticasone-salmeterol HFA (ADVAIR) 230-21 mcg/actuation inhaler Inhale 2 Puffs as instructed twicedaily. furosemide (LASIX) 20 mg tablet Take 20 mg by mouth twice daily. Pt is taking 30 mg daily potassium chloride ER (K-DUR, KLOR-CON) 20 mEq tablet Take 20 mEq by mouth twice daily. L. acidophilus/Bifid. animalis (DAILY PROBIOTIC ORAL) Take by mouth. diltiazem CD (CARDIZEM CD) 180 mg 24 hr capsule Take 2 capsules by mouth once daily. apixaban (ELIQUIS) 5 mg tab tab(s) Take 1 tablet by mouth twice daily. albuterol (PROVENTIL) 2.5 mg /3 mL (0.083 %) nebulizer solution Use 2.5 mg via nebulizer every 4 hours as needed. montelukast (SINGULAIR) 10 mg tablet Take 10 mg by mouth daily at bedtime. fluticasone (FLONASE) 50 mcg/actuation nasal spray Use 1 [place] in each nostril twice daily. acetaminophen 650 mg CR tablet Take 1,300 mg by mouth at bedtime as needed. albuterol HFA (PROVENTIL HFA, VENTOLIN HFA) 90 mcg/actuation inhaler Inhale 2 Puffs as instructed every 4 hours as needed. ondansetron orally disintegrating (ZOFRAN ODT) 4 mg disintegrating tablet (Patient not taking: Reported on 10/03/2023) clobetasol (TEMOVATE) 0.05 % cream Apply to affected area 2x/day for 2 weeks, then 1x/day for a week. (Patient not taking: Reported on 05/01/2024) docosahexaenoic acid/epa (FISH OIL ORAL) Take by mouth. (Patient not taking: Reported on 10/29/2022) L.acidoph-B.lactis-B.longum (FLORAJEN3) 460 mg (7.5-6- 1.5 bill. cell) cap Take 1 capsule by mouth once daily. (Patient not taking: Reported on 10/29/2022) predniSONE (DELTASONE) 10 mg tablet Take 1 tablet by mouth once daily. 40MG PO QD FOR 3DAYS, THEN 30MG PO QD FOR 3DAYS, THEN 20MG PO QD FOR 3DAYS AND THEN 10MG PO QD FOR 3DAYS, THEN 5MG DAILY. (Patient not taking: Reported on 10/03/2023) flecainide (TAMBOCOR) 100 mg tablet Take 1 tablet by mouth every 12 hours. (Patient not taking: Reported on 10/03/2023) fluticasone-salmeterol (ADVAIR) 500-50 mcg/dose dsdv Inhale 1 Puff as instructed twice daily. (Patient not taking: Reported on 12/07/2022) melatonin 3 mg Take 3 mg by mouth daily at bedtime. (Patient not taking: Reported on 10/03/2023) No current facility-administered medications for this visit. Allergies As of Date: 05/01/2024 Allergen Noted Reaction CLINDAMYCIN 10/14/2005 Hives MACRODANTIN [NITROFURANTOIN MACRO*10/14/2005 Other: See Comments PERCOCET [OXYCODONE-ACETAMINOPHEN]10/14/2005 Other: See Comments SULFA (SULFONAMIDE ANTIBIOTICS) 10/14/2005 Rash and Itching ZENICEF [OTHER] 10/14/2005 Rash and Itching ZITHROMAX [AZITHROMYCIN] 10/14/2005 Rash and Itching Fully Assessed 05/01/2024 REVIEW OF SYSTEMS Abdomen: No bloating, early satiety, indigestion, or increased flatulence. No abdominal pain, nausea, vomiting, diarrhea, or constipation. Bladder: No dysuria, gross hematuria, urinary frequency, urinary urgency, or incontinence. Breast: No breast lumps, nipple d/c, overlying skin changes, redness or skin retraction. Expanded ROS: N/A Allergies and current medication updated:Yes SENSITIVE EXAM: The sensitive examination was discussed with the Patient or Patient's Authorized Electrostatic Paint Operator. As applicable, any other physician, advance practice provider, medical student, or other health professional student that will be observing or involved in the sensitive examination for educational or training purposes was discussed with the Patient or Authorized Electrostatic Paint Operator. The Patient or Authorized Electrostatic Paint Operator has agreed to proceed with the sensitive examination. (Sensitive examination includes inspection and/or palpation of the breasts, pelvis, prostate and anorectal regions). EXAM: BP 120/68 Wt 189 lb (85.7kg) GENERAL: pleasant, female in no apparent distress HEENT: Normocephalic and atraumatic NECK: Supple and full range of motion DERMATOLOGY: Normal and without lesions PELVIC: external genitalia normal, normal Bartholin's glands, urethra, Harwood's glands, no cervical lesions, good vaginal support, physiologic discharge present, normal appearing perineal body and perianal region. Small epidermal cyst to left labia major, subcentimeter BIMANUAL: NEURO: alert and oriented x3,exam grossly non-focal ASSESSMENT AND PLAN: Assessment & Plan Epidermal inclusion cyst Discussed cyst present and does not need removed unless she desires. Diabetic and discussed concerns for delayed healing. Ok to observe at this time if asymptomatic and she is agreeable to plan. Linda Restrepo APRN.CNM documented [facility] NoteHNO ID: [id number] Author: LINDA RESTREPO APRN.CNM Service: ? Author Type: Dock Grader Type: Progress Notes Filed: 10/05/2023 10:56 Note Text: Laura Stark is a 68 year old female who presents for problem visit for vulvar bump HPI: Presents today for complaint of bump on labia that started about a week ago. Is not able to visualize but present. No pain but fells it there. No draining from what she can see. Denies any trauma or other concerns. Wears pad due to incontinence. 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 Comments: Sexual Activity: Not Currently; Male; hysterectomy Contraception: Surgical PAST MEDICAL HISTORY 12/06/2007: Abnormal mammogram, unspecified 10/14/2005: BILIARY DYSKINESIA 1996: DVT (deep venous thrombosis) ([facility]) Comment: Rt lower leg 10/28/2005: Embolism and thrombosis of unspecified site No date: PE (pulmonary embolism) 08/03/2012: Recurrent ventral incisional hernia No date: Sepsis (HCC) No date: Unspecified asthma(493.90) No date: Unspecified essential hypertension PAST SURGICAL HISTORY No date: APPENDECTOMY No date: DELIVERY ONLY Comment: , low cervical 01-09-13: COLONOSCOPY FLX DX W/COLLJ SPEC WHEN PFRMD 02-10-12: DEBRIDEMENT SUBCUTANEOUS TISSUE 20 SQ CM/< 2-8-13: ENTEROLSS FRING INTSTINAL ADHESION SPX 01-15-13: FILTER PLACEMENT (VENA CAVA) 4/11/12: FNA WITH IMAGING Comment: U/S FNA left thyroid nodule 01-31-12: IMPLANT MESH OPN HERNIA RPR/DEBRIDEMENT CLOSURE 03-24-12: INSJ NON-TUNNELED CENTRAL VENOUS CATH AGE 4 YR/> 01-18-13: LAPS RPR RECURRENT INCAL HRNA NCRC8/STRANGULATED 2004: PAST SURGICAL HISTORY OF Comment: right ankle surgery-fusion 2010: PAST SURGICAL HISTORY OF Comment: right shoulder partial replacement 01-31-12: RPR 1ST INCAL/VNT HERNIA INCARCERATED 1996: TOTAL ABDOMINAL HYSTERECT W/WO RMVL TUBE OVARY Comment: Hysterectomy, RONN 02-21-13: TRANSCATH RETRIEVAL,PERCUT Comment: FILTER REMOVAL FAMILY HISTORY Problem Relation Age of Onset Diabetes Mother Hypertension Mother Ischemic Heart Disease Mother Cancer Father skin Hypertension Father Diabetes Sister Hypertension Sister Diabetes Sister Hypertension Sister Blood Clots Sister Diabetes Sister Hypertension Sister Cancer Maternal Grandmother colon Hypertension Maternal Grandfather Ischemic Heart Disease Maternal Grandfather Diabetes Maternal Grandfather Cancer Paternal Grandfather leukemia Colon Cancer Maternal Uncle Colon Cancer Maternal Uncle Social History Tobacco Use Smoking status: Former Current packs/day: 0.00 Average packs/day: 1 pack/day for 20.0 years (20.0 ttl pk-yrs) Types: Cigarettes Start date: 10/29/1975 Quit date: 10/29/1995 Years since quittin.9 Smokeless tobacco: Never Vaping Use Vaping status: Never Used Substance Use Topics Alcohol use: No Drug use: No Current Outpatient Medications Medication Sig ondansetron orally disintegrating (ZOFRAN ODT) 4 mg disintegrating tablet atorvastatin (LIPITOR) 10 mg tablet famotidine (PEPCID) 40 mg tablet Take 40 mg by mouth. latanoprost (XALATAN) 0.005 % ophthalmic solution clobetasol (TEMOVATE) 0.05 % cream Apply to affected area 2x/day for 2 weeks, then 1x/day for a week. levothyroxine (SYNTHROID) 25 mcg tablet docosahexaenoic acid/epa (FISH OIL ORAL) Take by mouth. (Patient not taking: Reported on 10/29/2022) esomeprazole (NEXIUM) 40 mg capsule Take 40 mg by mouth DAILY (6 AM). L.acidoph-B.lactis-B.longum (FLORAJEN3) 460 mg (7.5-6- 1.5 bill. cell) cap Take 1 capsule by mouth once daily. (Patient not taking: Reported on 10/29/2022) Cholecalciferol, Vitamin D3, 50 mcg (2,000 unit) cap Take by mouth. acetaminophen (TYLENOL) 500 mg tablet Take 1,000 mg by mouth twice daily. fluticasone-salmeterol HFA (ADVAIR) 230-21 mcg/actuation inhaler Inhale 2 Puffs as instructed twice daily. furosemide (LASIX) 20 mg tablet Take 20 mg by mouth twice daily. Pt is taking 30 mg daily potassium chloride ER (K-DUR, KLOR-CON) 20 mEq tablet Take 20 mEq by mouth twice daily. L. acidophilus/Bifid. animalis (DAILY PROBIOTIC ORAL) Take by mouth. diltiazem CD (CARDIZEM CD) 180 mg 24 hr capsule Take 2 capsules by mouth once daily. apixaban (ELIQUIS) 5 mg tab tab(s) Take 1 tablet by mouth twice daily. predniSONE (DELTASONE) 10 mg tablet Take 1 tablet by mouth once daily. 40MG PO QD FOR 3DAYS, THEN 30MG PO QD FOR 3DAYS, THEN 20MG PO QD FOR 3DAYS AND THEN 10MG PO QD FOR 3DAYS, THEN 5MG DAILY. flecainide (TAMBOCOR) 100 mg tablet Take 1 tablet by mouth every 12 hours. fluticasone-salmeterol (ADVAIR) 500-50 mcg/dose dsdv Inhale 1 Puff as instructed twice daily. (Patient not taking: Reported on 12/07/2022) albuterol (PROVENTIL) 2.5 mg /3 mL (0.083 %) nebulizer solution Use 2.5 mg via nebulizer every 4 hours as nee (more content not included)...[facility]08-19-2024 History of Present illness Narrative* Linda Restrepo APRN.JAYDEN - 10/03/2023 1:21 PM EDT Laura Strak is a 68 year old female who presents for problem visit for vulvar bump HPI: Presents today for complaint of bump on labia that started about a week ago. Is not able to visualize but present. No pain but fells it there. No draining from what she can see. Denies any trauma or other concerns. Wears pad due to incontinence. 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 Comments: Sexual Activity: Not Currently; Male; hysterectomy Contraception: Surgical PAST MEDICAL HISTORY 12/06/2007: Abnormal mammogram, unspecified 10/14/2005: BILIARY DYSKINESIA 1995: DVT (deep venous thrombosis) ([facility]) Comment: Rt lower leg 10/28/2005: Embolism and thrombosis of unspecified site No date: PE (pulmonary embolism) 08/03/2012: Recurrent ventral incisional hernia No date: Sepsis (HCC) No date: Unspecified asthma(493.90) No date: Unspecified essential hypertension PAST SURGICAL HISTORY No date: APPENDECTOMY No date: DELIVERY ONLY Comment: , low cervical 01-09-13: COLONOSCOPY FLX DX W/COLLJ SPEC WHEN PFRMD 02-10-12: DEBRIDEMENT SUBCUTANEOUS TISSUE 20 SQ CM/< 03-24-12: ENTEROLSS FRING INTSTINAL ADHESION SPX 01-15-13: FILTER PLACEMENT (VENA CAVA) 05/26/11: FNA WITH IMAGING Comment: U/S FNA left thyroid nodule 01-31-12: IMPLANT MESH OPN HERNIA RPR/DEBRIDEMENT CLOSURE 03-24-12: INSJ NON-TUNNELED CENTRAL VENOUS CATH AGE 4 YR/> 01-18-13: LAPS RPR RECURRENT INCAL HRNA NCRC8/STRANGULATED 2004: PAST SURGICAL HISTORY OF Comment: right ankle surgery-fusion 2010: PAST SURGICAL HISTORY OF Comment: right shoulder partial replacement 01-31-12: RPR 1ST INCAL/VNT HERNIA INCARCERATED 1996: TOTAL ABDOMINAL HYSTERECT W/WO RMVL TUBE OVARY Comment: Hysterectomy, RONN 02-21-13: TRANSCATH RETRIEVAL,PERCUT Comment: FILTER REMOVAL FAMILY HISTORY Problem Relation Age of Onset Diabetes Mother Hypertension Mother Ischemic Heart Disease Mother Cancer Father skin Hypertension Father Diabetes Sister Hypertension Sister Diabetes Sister Hypertension Sister Blood Clots Sister Diabetes Sister Hypertension Sister Cancer Maternal Grandmother colon Hypertension Maternal Grandfather Ischemic Heart Disease Maternal Grandfather Diabetes Maternal Grandfather Cancer Paternal Grandfather leukemia Colon Cancer Maternal Uncle Colon Cancer Maternal Uncle Social History Tobacco Use Smoking status: Former Current packs/day: 0.00 Average packs/day: 1 pack/day for 20.0 years (20.0 ttl pk-yrs) Types: Cigarettes Start date: 10/29/1975 Quit date: 10/29/1995 Years since quittin.9 Smokeless tobacco: Never Vaping Use Vaping status: Never Used Substance Use Topics Alcohol use: No Drug use: No Current Outpatient Medications Medication Sig ondansetron orally disintegrating (ZOFRAN ODT) 4 mg disintegrating tablet atorvastatin (LIPITOR) 10 mg tablet famotidine (PEPCID) 40 mg tablet Take 40 mg by mouth. latanoprost (XALATAN) 0.005 % ophthalmic solution clobetasol (TEMOVATE) 0.05 % cream Apply to affected area 2x/day for 2 weeks, then 1x/day for a week. levothyroxine (SYNTHROID) 25 mcg tablet docosahexaenoic acid/epa (FISH OIL ORAL) Take by mouth. (Patient not taking: Reported on 10/29/2022) esomeprazole (NEXIUM) 40 mg capsule Take 40 mg by mouth DAILY (6 AM). L.acidoph-B.lactis-B.longum (FLORAJEN3) 460 mg (7.5-6- 1.5 bill. cell) cap Take 1 capsule by mouth once daily. (Patient not taking: Reported on 10/29/2022) Cholecalciferol, Vitamin D3, 50 mcg (2,000 unit) cap Take by mouth. acetaminophen (TYLENOL) 500 mg tablet Take 1,000 mg by mouth twice daily. fluticasone-salmeterol HFA (ADVAIR) 230-21 mcg/actuation inhaler Inhale 2 Puffs as instructed twicedaily. furosemide (LASIX) 20 mg tablet Take 20 mg by mouth twice daily. Pt is taking 30 mg daily potassium chloride ER (K-DUR, KLOR-CON) 20 mEq tablet Take 20 mEq by mouth twice daily. L. acidophilus/Bifid. animalis (DAILY PROBIOTIC ORAL) Take by mouth. diltiazem CD (CARDIZEM CD) 180 mg 24 hr capsule Take 2 capsules by mouth once daily. apixaban (ELIQUIS) 5 mg tab tab(s) Take 1 tablet by mouth twice daily. predniSONE (DELTASONE) 10 mg tablet Take 1 tablet by mouth once daily. 40MG PO QD FOR 3DAYS, THEN 30MG PO QD FOR 3DAYS, THEN 20MG PO QD FOR 3DAYS AND THEN 10MG PO QD FOR 3DAYS, THEN 5MG DAILY. flecainide (TAMBOCOR) 100 mg tablet Take 1 tablet by mouth every 12 hours. fluticasone-salmeterol (ADVAIR) 500-50 mcg/dose dsdv Inhale 1 Puff as instructed twice daily. (Patient not taking: Reported on 12/07/2022) albuterol (PROVENTIL) 2.5 mg /3 mL (0.083 %) nebulizer solution Use 2.5 mg via nebulizer every 4 hours as needed. melatonin 3 mg Take 3 mg by mouth daily at bedtime. montelukast (SINGULAIR) 10 mg tablet Take 10 mg by mouth daily at bedtime. fluticasone (FLONASE) 50 mcg/actuation nasal spray Use 1 [place] in each nostril twice daily. acetaminophen 650 mg CR tablet Take 1,300 mg by mouth at bedtime as needed. albuterol HFA (PROVENTIL HFA, VENTOLIN HFA) 90 mcg/actuation inhaler Inhale 2 Puffs as instructed every 4 hours as needed. No current facility-administered medications for this visit. Allergies As of Date: 10/03/2023 Allergen Noted Reaction CLINDAMYCIN 10/14/2005 Hives MACRODANTIN [NITROFURANTOIN MACRO*10/14/2005 Other: See Comments PERCOCET [OXYCODONE-ACETAMINOPHEN]10/14/2005 Other: See Comments SULFA (SULFONAMIDE ANTIBIOTICS) 10/14/2005 Rash and Itching ZENICEF [OTHER] 10/14/2005 Rash and Itching ZITHROMAX [AZITHROMYCIN] 10/14/2005 Rash and Itching Fully Assessed 12/07/2022 REVIEW OF SYSTEMS Abdomen: No bloating, early satiety, indigestion, or increased flatulence. No abdominal pain, nausea, vomiting, diarrhea, or constipation. Bladder: No dysuria, gross hematuria, urinary frequency, urinary urgency, or incontinence. Breast: No breast lumps, nipple d/c, overlying skin changes, redness or skin retraction. Expanded ROS: N/A Allergies and current medication updated:Yes EXAM: There were no vitals taken for this visit. GENERAL: pleasant, female in no apparent distress PELVIC: external genitalia normal, normal Bartholin's glands, urethra, Harwood's glands, on left labia small blood blister, healing NEURO: alert and oriented x3,exam grossly non-focal EXTREMITIES: normal ASSESSMENT AND PLAN: 1. Blood blister - ICD9: 919.2, ICD10: T14.8XXA -Healing, no intervention needed at this time. -Return for annual exam Linda Restrepo APRN.CNM [facility] Progress note Author Nicky Cavanaugh [facility] June 14, 2023 10:12am Note Date/Time June 14, 2023 10: 12am [facility] [address] [place] [address] Progress Note - Wound Care 06/14/23 1012 MR#: [id number] Acct: [id number] Name: LAURA STARK Rep #:[id number] 004 : [id number] 68 From: Nicky Cavanaugh DPM PCP: Dr. Moreno Donnelly MD Status :REG RCR Location: History of Present Illness Date of Service: 06/14/23 Chief Complaint: Follow-up surgical wound dehiscence History of Wound: Patient has had this wound for several weeks and has noticed worsening with increased serous drainage. Patient denies any fever chills nausea vomiting chest pain calf pain shortness of breath.68-year-old female presents today with a venous leg ulceration to her right leg. Patient has no other complaints. Objective Data Objective Data Vital Signs: Vital Signs Temp Pulse Resp BP O2 Del Method 96.4 F L 86 18 142/63 H Room Air 06/14/23 09:06 06/14/23 09:06 06/07/23 10:46 06/14/23 09:06 06/07/23 10:46 Oxygen Delivery Method Room Air Weight: 108.409 kg Body Mass Index (BMI) 102.8 Physical Exam Narrative Vascular: Trophic changes to skin secondary to chronic venous insufficiency. Palpable dorsalis pedis and posterior tibial pulses, 2 out of 4 bilateral lower extremity. Atrophic changes noted to skin of the foot with skin thinning kind, shiny, taut appearance absent digital hair growth. Neurologic: Light touch protective sensation intact. No evidence of clonus or Babinski. Dermatologic: Full-thickness ulceration to the right medial ankle along course of great saphenous vein demonstrates a fibrogranular base. Pre and postdebridement measurements documented nursing notes. No deep probing or undermining. Some mild periwound erythema and warmth noted. No other signs of infection. Musculoskeletal: No pain with calf squeeze. No gross musculoskeletal deformity contributing to this wound formation. 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 Muscular strength is full to bilateral lower extremity compartments. Debridement Note Debridement Note Post-Debridement Measurements and Additional Note: Post-Debridement Measurements/Treatment - Nurse 1 - General Ulcer Assessment Start: 05/17/23 10:33 Freq: Status: Active Protocol: WC.LOWEXT Activity Type Activity Date Activity User E-sign Co-sign Detail Recorded Client Recorded Date Recorded By Document 05/17/23 10:33 RB Desktop 05/17/23 10:46 RB Document 05/24/23 08:40 KW Desktop 05/24/23 08:45 KW Document 05/31/23 11:02 KW Desktop 05/31/23 11:12 KW Document 06/07/23 10:46 KW Desktop 06/07/23 10:54 KW Document 06/14/23 09:06 DS Desktop 06/14/23 09:15 DS 05/17/23 05/24/23 05/31/23 10:33 08:40 11:02 - Today's Visit Information Type of service Follow-up Visit Follow-up Visit Follow-up Visit (Physician/DAMPPROOFER (Physician/DAMPPROOFER (Physician/DAMPPROOFER ) ) ) Arrival Mode Ambulatory Ambulatory, Ambulatory, Walker Walker Transfer Assistance None Patient Identification Verified (Name & Yes Yes Yes ) Patient Requires Transmission-Based No Precautions Safety Precautions Height and Weight Weight Weight in Pounds Weight Measurement Method Body Mass Index (BMI) 102.8 102.8 102.8 BMI Classification Obese Obese Obese Vital Signs Temperature (97.8 F-99.1 F) 97.3 F L 97.4 F L Temperature Source Temporal Temporal Pulse Rate (60-100) 92 95 83 Pulse Location Monitor Monitor Monitor Respiratory Rate (12-18) 18 18 18 Respiratory rate source Observation Observation Observation Oxygen Delivery Method Room Air Room Air Blood Pressure (90/60-120/80) 158/83 H 171/101 H 154/74 H Blood Pressure Mean (mm Hg) 108 124 100 Source Monitor Monitor Monitor Position Semi-Fowlers Sitting Semi-Fowlers Blood Pressure Location Left Arm Left Arm Left Forearm History Since Last Visit- (Skip if this is Patient's initial visit) Have you changed medications since your No No No last visit? Any new allergies or adverse reactions No No No Had a fall/change in ADL's that may No No No increase risk of falls Signs or symptoms of abuse and/or No No No neglect since last visit Have you been in the hospital since your No No No last visit? Has dressing in place as prescribed Yes Yes Yes Has compression in place as prescribed No Yes N/A Has offloadiing in place as prescribed Yes Yes Yes Experienced any changes in pain level or No No management Left Footwear Removable Cast Removable Cast Walker/Walking Walker/Walking Boot Boot Right Footwear Surgical Shoe Surgical Shoe with pressure with pressure relief insole relief insole Pain Scale: 0-10 Numeric Is Patient Pain Free? Yes Yes Yes 06/07/23 06/14/23 10:46 09:06 WC - Today's Visit Information Type of service Follow-up Visit Follow-up Visit (Physician/DAMPPROOFER (Physician/DAMPPROOFER ) ) Arrival Mode Ambulatory, Ambulatory, Walker Walker Transfer Assistance Patient Identification Verified (Name & Yes Yes ) Patient Requires Transmission-Based Precautions Safety Precautions NA Height and Weight Weight 108.409 kg Weight in Pounds 239.0 lbs Weight Measurement Method Estimated by Patient Body Mass Index (BMI) 102.8 BMI Classification Obese Vital Signs Temperature (97.8 F-99.1 F) 96.4 F L Temperature Source Temporal Pulse Rate (60-100) 76 86 Pulse Location Monitor Monitor Respiratory Rate (12-18) 18 Respiratory rate source Observation Oxygen Delivery Method Room Air Blood Pressure (90/60-120/80) 189/81 H 142/63 H Blood Pressure Mean (mm Hg) 117 89 Source Monitor Monitor Position Semi-Fowlers Semi-Fowlers Blood Pressure Location Right Arm Right Forearm History Since Last Visit- (Skip if this is Patient's initial visit) Have you changed medications since your No No last visit? Any new allergies or adverse reactions No No Had a fall/change in ADL's that may No No increase risk of falls Signs or symptoms of abuse and/or No No neglect since last visit Have you been in the hospital since your No No last visit? Has dressing in place as prescribed Yes Yes Has compression in place as prescribed Yes Yes Has offloadiing in place as prescribed Yes No Experienced any changes in pain level or No No management Left Footwear Removable Cast Multipodus Walker/Walking Splint/Boot Boot Right Footwear Surgical Shoe Surgical Shoe with pressure with pressure relief insole relief insole Pain Scale: 0-10 Numeric Is Patient Pain Free? Yes Yes WC - Nurse 1 - General Ulcer Measurement Start: 05/17/23 10:33 Freq: Status: Active Protocol: Activity Type Activity Date Activity User E-sign Co-sign Detail Recorded Client Recorded Date Recorded By Document 05/17/23 10:33 RB Desktop 05/17/23 10:46 RB Document 05/24/23 08:40 KW Desktop 05/24/23 08:45 KW Document 05/31/23 11:02 KW Desktop 05/31/23 11:12 KW Document 06/07/23 10:46 KW Desktop 06/07/23 10:54 KW Document 06/14/23 09:06 DS Desktop 06/14/23 09:15 DS 05/17/23 05/24/23 05/31/23 10:33 08:40 11:02 Wound Center Nurse 1 #3 RT MED ANKLE -Combined with other wound No No -Current Size (cm) - Length 1 0.8 1.1 -Current Size (cm) - Width 1.1 0.4 0.5 -Current Size (cm) - Depth 0.2 0.2 0.1 -Total Square Cm 1.1 0.32 0.55 -Date of Last Picture (Recall this 05/24/23 field) -Photo Taken Yes Yes -Tunneling No No -Undermining/Tunneling No No -Circular Undermining No No -Exudate Amt Medium Medium Medium -Exudate Type Serosanguineous Serosanguineous Serosanguineous -Wound Margin Distinct, Distinct, Distinct, Outline Outline Outline Attached Attached Attached -Granulation Amt Medium (34-66%) Medium (34-66%) -Granulation Quality [place] -Slough/Fibrin Yes Yes -Necrosis Amt Medium (34-66%) Large (67-100%) Medium (34-66%) -Necrotic Tissue Type Adherent Slough Adherent Slough Adherent Slough -Structure Exposed N/A N/A -Texture (Jagruti-wound Skin Appearance) Assessed Assessed Scarring -Moisture (Jagruti-wound Skin Appearance) Maceration Assessed Assessed -Color (Jagruti-wound Skin Appearance) Assessed Assessed Assessed -Temperature (Jagruti-wound Skin No Abnormality No Abnormality No Abnormality Appearance) (Pt Warm) (Pt Warm) (Pt Warm) -Tenderness on Palpation (Jagruti-wound No No Skin Appearance) -Ulcer Cleansing Wound Cleanser Soap and Water Wound Cleanser -Foul Odor after Cleansing No No -Anesthetic Used 5% Lidocaine 5% Lidocaine 5% Lidocaine Gel Gel Gel Lower Limb Edema Present Yes Yes Right Calf (cm) 37.5 34.5 Right Ankle (cm) 22.3 21.4 Left Calf (cm) 36 Left Ankle (cm) 21 06/07/23 06/14/23 10:46 09:06 Wound Center Nurse 1 #3 RT MED ANKLE -Combined with other wound No -Current Size (cm) - Length 0.9 0.3 -Current Size (cm) - Width 0.5 0.5 -Current Size (cm) - Depth 0.3 0.2 -Total Square Cm 0.45 0.15 -Date of Last Picture (Recall this field) -Photo Taken No -Tunneling No -Undermining/Tunneling No -Circular Undermining No -Exudate Amt Small Medium -Exudate Type Serosanguineous Serosanguineous -Wound Margin Distinct, Distinct, Outline Outline Attached Attached -Granulation Amt Medium (34-66%) Medium (34-66%) -Granulation Quality [place],Red -Slough/Fibrin Yes -Necrosis Amt Medium (34-66%) Medium (34-66%) -Necrotic Tissue Type Adherent Slough Adherent Slough -Structure Exposed -Texture (Jagruti-wound Skin Appearance) Assessed, Assessed Localized Edema -Moisture (Jagruti-wound Skin Appearance) Assessed Assessed -Color (Jagruti-wound Skin Appearance) Assessed Assessed, Erythema -Temperature (Jagruti-wound Skin No Abnormality No Abnormality Appearance) (Pt Warm) (Pt Warm) -Tenderness on Palpation (Jagruti-wound Yes Yes Skin Appearance) -Ulcer Cleansing Soap and Water Soap and Water -Foul Odor after Cleansing No -Anesthetic Used 5% Lidocaine 5% Lidocaine Gel Gel Lower Limb Edema Present Right Calf (cm) 34.5 34.2 Right Ankle (cm) 21.2 21 Left Calf (cm) Left Ankle (cm) WC - Nurse 2 - General Ulcer CM Notes Start: 05/17/23 10:33 Freq: Status: Active Protocol: Activity Type Activity Date Activity User E-sign Co-sign Detail Recorded Client Recorded Date Recorded By Document 05/17/23 11:05 Laptop 05/17/23 11:12 Document 05/24/23 09:37 Laptop 05/24/23 09:39 Document 05/31/23 11:21 JF Laptop 05/31/23 11:27 Document 06/07/23 11:11 Laptop 06/07/23 11:13 Document 06/14/23 09:28 Laptop 06/14/23 09:30 05/17/23 05/24/23 05/31/23 11:05 09:37 11:21 Wound Center Nurse 2 #3 RT MED ANKLE -Time 11:09 09:38 11:21 -Correct Patient Yes Yes Yes -Correct Side, Site, Position Yes Yes Yes -Correct Procedure Yes Yes Yes -Procedure Performed Yes Yes Yes -Type of Procedure Debridement Debridement Debridement -Clinical Debridement Subcutaneous Subcutaneous Subcutaneous -Tissue Removed Subcutaneous Subcutaneous Subcutaneous -Post Debridement (cm) - Length 1.0 0.8 0.5 -Post Debridement (cm) - Width 1.0 0.5 1.2 -Post Debridement (cm) - Depth 0.1 0.1 0.2 -Total Square (Post) (cm) 1.00 0.40 0.60 -Area of Debridement (cm) - Length 1.0 0.8 0.5 -Area of Debridement (cm) - Width 1.0 0.5 1.2 -Total Square (Area) (cm) 1.00 0.40 0.60 -Tunneling No No No -Undermining/Tunneling No No No -Circular Undermining No No No -Wound/Ulcer Outcome Not Healed Not Healed Not Healed -Ulcer Cleansing Rinsed/ Rinsed/ Rinsed/ Irrigated with Irrigated with Irrigated with Saline Saline Saline -Foul Odor after Cleansing No No No -Bioengineered Tissue No Yes Yes -Type of Bioengineered Tissue Epifix 18mm Epifix 18mm Disc Disc -Expiration Date 12/16/27 12/16/27 -Product Lot Number [id number] -Percent Used 100 100 -Lot number of Saline Used [id number] -Bleeding Controlled with Pressure Pressure Pressure -Treatment Response Procedure Procedure Procedure Tolerated Well Tolerated Well Tolerated Well -Offloading No No No -Debridement - Subq, 1st 20sq cm Yes No No -Apply Skin Sub - 1st 25 sq cm - Legs 1 1 -Epifix 18mm Disc 3 3 Pain Scale: 0-10 Numeric Is Patient Pain Free? Yes Yes Yes 06/07/23 06/14/23 11:11 09:28 Wound Center Nurse 2 #3 RT MED ANKLE -Time 11: 09:28 -Correct Patient Yes Yes -Correct Side, Site, Position Yes Yes -Correct Procedure Yes Yes -Procedure Performed Yes Yes -Type of Procedure Debridement Debridement -Clinical Debridement Subcutaneous Subcutaneous -Tissue Removed Subcutaneous Subcutaneous -Post Debridement (cm) - Length 0.5 0.5 -Post Debridement (cm) - Width 1.1 1.0 -Post Debridement (cm) - Depth 0.3 0.1 -Total Square (Post) (cm) 0.55 0.50 -Area of Debridement (cm) - Length 0.5 0.5 -Area of Debridement (cm) - Width 1.1 1.0 -Total Square (Area) (cm) 0.55 0.50 -Tunneling No No -Undermining/Tunneling No No -Circular Undermining No No -Wound/Ulcer Outcome Not Healed Not Healed -Ulcer Cleansing Rinsed/ Rinsed/ Irrigated with Irrigated with Saline Saline -Foul Odor after Cleansing No No -Bioengineered Tissue Yes Yes -Type of Bioengineered Tissue Epifix 18mm Epifix 18mm Disc Disc -Expiration Date 12/16/27 12/16/27 -Product Lot Number [id number] -Percent Used 100 100 -Lot number of Saline Used [id number] -Bleeding Controlled with Pressure Pressure -Treatment Response Procedure Procedure Tolerated Well Tolerated Well -Offloading No No -Debridement - Subq, 1st 20sq cm No No -Apply Skin Sub - 1st 25 sq cm - Legs 1 1 -Epifix 18mm Disc 3 3 Pain Scale: 0-10 Numeric Is Patient Pain Free? Yes Yes WC - Nurse 3 - General Ulcer D/C NN Start: 05/17/23 10:33 Freq: Status: Active Protocol: Activity Type Activity Date Activity User E-sign Co-sign Detail Recorded Client Recorded Date Recorded By Document 05/17/23 11:30 RB Desktop 05/17/23 11:34 RB Document 05/20/23 09:26 MT Desktop 05/20/23 09:42 MT Document 05/24/23 09:49 DL Desktop 05/24/23 09:51 DL Document 05/31/23 11:46 DL Desktop 05/31/23 11:47 DL Document 06/07/23 11:29 RB Desktop 06/07/23 11:29 RB Document 06/14/23 09:35 KW Desktop 06/14/23 09:35 KW 05/17/23 05/20/23 05/24/23 11:30 09:26 09:49 Wound Care Center Nurse 3 #3 RT MED ANKLE -Ulcer Cleansing Rinsed/ Soap and Water Not Cleansed Irrigated with Saline -Foul Odor after Cleansing No No -Negative Pressure Wound Therapy N/A -Primary Dressing Applied Aquacel AG 4x4 -Other Dressing aquacel ag Epifix -Primary Dressing Covered/Secured with Dry Gauze Dry Gauze, Dry Gauze Secured with Tape -Other Covering ABD -Aquacel AG 4x4 1 -Mepilex Border Right -Multi-Layered Wrap Application Multi-Layer Multi-Layer Multi-Layer Comp - Right ($ Comp - Right ($ Comp - Right ($ ) ) ) Treatment Response Procedure Procedure Tolerated Well Tolerated Well Vital Signs Temperature (97.8 F-99.1 F) 98 F Temperature Source Temporal Pulse Rate (60-100) 98 Pulse Location Monitor Respiratory Rate (12-18) 18 Respiratory rate source Observation Oxygen Delivery Method Room Air Blood Pressure (90/60-120/80) 173/68 H Blood Pressure Mean (mm Hg) 103 Source Monitor Position Sitting Blood Pressure Location Left Arm Pain Scale: 0-10 Numeric Is Patient Pain Free? Yes Yes Yes WC - Visit Discharge Discharge Condition Stable Stable Stable Ambulatory Status Ambulatory Ambulatory, Ambulatory, Walker Walker Transportation Private Auto Private Auto Private Auto Medication Reconcilliation completed & No No provided to patient/care provider Clinical Summary of Care Provided Yes Yes Notes: nurse visit Facility Type Home Health Orders Sent Yes 05/31/23 06/07/23 06/14/23 11:46 11:29 09:35 Wound Care Center Nurse 3 #3 RT MED ANKLE -Ulcer Cleansing Not Cleansed -Foul Odor after Cleansing No -Negative Pressure Wound Therapy -Primary Dressing Applied Mepilex Border Mepilex Border Mepilex Border -Other Dressing Epimesh -Primary Dressing Covered/Secured with -Other Covering -Aquacel AG 4x4 -Mepilex Border 1 1 1 Right -Multi-Layered Wrap Application Multi-Layer Multi-Layer Multi-Layer Comp - Right ($ Comp - Right ($ Comp - Right ($ ) ) ) Treatment Response Procedure Tolerated Well Vital Signs Temperature (97.8 F-99.1 F) Temperature Source Pulse Rate (60-100) Pulse Location Respiratory Rate (12-18) Respiratory rate source Oxygen Delivery Method Blood Pressure (90/60-120/80) Blood Pressure Mean (mm Hg) Source Position Blood Pressure Location Pain Scale: 0-10 Numeric Is Patient Pain Free? Yes Yes Yes WC - Visit Discharge Discharge Condition Stable Stable Stable Ambulatory Status Ambulatory, Ambulatory, Ambulatory, Walker Walker Walker Transportation Private Auto Private Auto Private Auto Medication Reconcilliation completed & No No provided to patient/care provider Clinical Summary of Care Provided Yes Yes Notes: Facility Type Home Health Orders Sent Yes Assessment/Plan Assessment/Plan (1) Non-pressure chronic ulcer of right ankle with fat layer exposed: CODE(S): L97.312 - Non-pressure chronic ulcer of right ankle with fat layer exposed PLAN: Exam performed Recent arterial studies within normal limits Patient has venous insufficiency with chronic venous venous leg ulceration rightlower extremity Right lower extremity wound was excisionally debrided down to including level ofsubcutaneous tissue of all nonviable tissue using a throat 3 mm dermal curette. Patient tolerated procedure well. Topical anesthesia used. Pre and postdebridement measurements documented nursing notes. Hemostasis obtained withlight compression. Today wound was 18 mm disc EpiFix graft. Entire graft used no waste. Graft wassecured with overlying wound veil and Steri-Strips. Applied hydrogel DSD with compression. Patient will follow-up in 1 week for continued care. (2) Venous insufficiency (chronic) (peripheral): CODE(S): I87.2 - Venous insufficiency (chronic) (peripheral) 06/14/23 1012 <Electronically signed by Nicky Cavanaugh DPM> Cosigner Signature (if applicable): CC: ~ Signed [facility] Work Phone: 1(405) 600-342504-23-2024 Progress note Author Nicky Cavanaugh [facility] June 07, 2023 11:16am Note Date/Time June 07, 2023 11: 16am [facility] [address] [place] [address] Progress Note - Wound Care 06/07/23 1115 MR#: [id number] Acct: [id number] Name: LAURA STARK Rep #:[id number] : 1955 68 From: Nicky Cavanaugh DPM PCP: Dr. Moreno Donnelly MD Status :REG RCR Location: History of Present Illness Date of Service: 06/07/23 Chief Complaint: Follow-up surgical wound dehiscence History of Wound: Patient has had this wound for several weeks and has noticed worsening with increased serous drainage. Patient denies any fever chills nausea vomiting chest pain calf pain shortness of breath.68-year-old female presents today with a venous leg ulceration to her right leg. Patient has no other complaints. Objective Data Objective Data Vital Signs: Vital Signs Temp Pulse Resp BP O2 Del Method 97.4 F L 76 18 189/81 H Room Air 05/31/23 11:02 06/07/23 10:46 06/07/23 10:46 06/07/23 10:46 06/07/23 10:46 Oxygen Delivery Method Room Air Weight: 247 kg Body Mass Index (BMI) 102.8 Physical Exam Narrative Vascular: Trophic changes to skin secondary to chronic venous insufficiency. Palpable dorsalis pedis and posterior tibial pulses, 2 out of 4 bilateral lower extremity. Atrophic changes noted to skin of the foot with skin thinning kind, shiny, taut appearance absent digital hair growth. Neurologic: Light touch protective sensation intact. No evidence of clonus or Babinski. Dermatologic: Full-thickness ulceration to the right medial ankle along course of great saphenous vein demonstrates a fibrogranular base. Pre and postdebridement measurements documented nursing notes. No deep probing or undermining. Some mild periwound erythema and warmth noted. No other signs of infection. Musculoskeletal: No pain with calf squeeze. No gross musculoskeletal deformity contributing to this wound formation. 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 Muscular strength is full to bilateral lower extremity compartments. Debridement Note Debridement Note Post-Debridement Measurements and Additional Note: Post-Debridement Measurements/Treatment - Nurse 1 - General Ulcer Assessment Start: 05/17/23 10:33 Freq: Status: Active Protocol: [id number] Activity Type Activity Date Activity User E-sign Co-sign Detail Recorded Client Recorded Date Recorded By Document 05/17/23 10:33 RB Desktop 05/17/23 10:46 RB Document 05/24/23 08:40 KW Desktop 05/24/23 08:45 KW Document 05/31/23 11:02 KW Desktop 05/31/23 11:12 KW Document 06/07/23 10:46 KW Desktop 06/07/23 10:54 KW 05/17/23 05/24/23 05/31/23 10:33 08:40 11:02 - Today's Visit Information Type of service Follow-up Visit Follow-up Visit Follow-up Visit (Physician/DAMPPROOFER (Physician/DAMPPROOFER (Physician/DAMPPROOFER ) ) ) Arrival Mode Ambulatory Ambulatory, Ambulatory, Walker Walker Transfer Assistance None Patient Identification Verified (Name & Yes Yes Yes ) Patient Requires Transmission-Based No Precautions Height and Weight Body Mass Index (BMI) 102.8 102.8 102.8 BMI Classification Obese Obese Obese Vital Signs Temperature (97.8 F-99.1 F) 97.3 F L 97.4 F L Temperature Source Temporal Temporal Pulse Rate (60-100) 92 95 83 Pulse Location Monitor Monitor Monitor Respiratory Rate (12-18) 18 18 18 Respiratory rate source Observation Observation Observation Oxygen Delivery Method Room Air Room Air Blood Pressure (90/60-120/80) 158/83 H 171/101 H 154/74 H Blood Pressure Mean (mm Hg) 108 124 100 Source Monitor Monitor Monitor Position Semi-Fowlers Sitting Semi-Fowlers Blood Pressure Location Left Arm Left Arm Left Forearm History Since Last Visit- (Skip if this is Patient's initial visit) Have you changed medications since your No No No last visit? Any new allergies or adverse reactions No No No Had a fall/change in ADL's that may No No No increase risk of falls Signs or symptoms of abuse and/or No No No neglect since last visit Have you been in the hospital since your No No No last visit? Has dressing in place as prescribed Yes Yes Yes Has compression in place as prescribed No Yes N/A Has offloadiing in place as prescribed Yes Yes Yes Experienced any changes in pain level or No No management Left Footwear Removable Cast Removable Cast Walker/Walking Walker/Walking Boot Boot Right Footwear Surgical Shoe Surgical Shoe with pressure with pressure relief insole relief insole Pain Scale: 0-10 Numeric Is Patient Pain Free? Yes Yes Yes 06/07/23 10:46 - Today's Visit Information Type of service Follow-up Visit (Physician/DAMPPROOFER ) Arrival Mode Ambulatory, Walker Transfer Assistance Patient Identification Verified (Name & Yes ) Patient Requires Transmission-Based Precautions Height and Weight Body Mass Index (BMI) 102.8 BMI Classification Obese Vital Signs Temperature (97.8 F-99.1 F) Temperature Source Pulse Rate (60-100) 76 Pulse Location Monitor Respiratory Rate (12-18) 18 Respiratory rate source Observation Oxygen Delivery Method Room Air Blood Pressure (90/60-120/80) 189/81 H Blood Pressure Mean (mm Hg) 117 Source Monitor Position Semi-Fowlers Blood Pressure Location Right Arm History Since Last Visit- (Skip if this is Patient's initial visit) Have you changed medications since your No last visit? Any new allergies or adverse reactions No Had a fall/change in ADL's that may No increase risk of falls Signs or symptoms of abuse and/or No neglect since last visit Have you been in the hospital since your No last visit? Has dressing in place as prescribed Yes Has compression in place as prescribed Yes Has offloadiing in place as prescribed Yes Experienced any changes in pain level or No management Left Footwear Removable Cast Walker/Walking Boot Right Footwear Surgical Shoe with pressure relief insole Pain Scale: 0-10 Numeric Is Patient Pain Free? Yes - Nurse 1 - General Ulcer Measurement Start: 05/17/23 10:33 Freq: Status: Active Protocol: Activity Type Activity Date Activity User E-sign Co-sign Detail Recorded Client Recorded Date Recorded By Document 05/17/23 10:33 RB Desktop 05/17/23 10:46 RB Document 05/24/23 08:40 KW Desktop 05/24/23 08:45 KW Document 05/31/23 11:02 KW Desktop 05/31/23 11:12 KW Document 06/07/23 10:46 KW Desktop 06/07/23 10:54 KW 05/17/23 05/24/23 05/31/23 10:33 08:40 11:02 Wound Center Nurse 1 #3 RT MED ANKLE -Combined with other wound No No -Current Size (cm) - Length 1 0.8 1.1 -Current Size (cm) - Width 1.1 0.4 0.5 -Current Size (cm) - Depth 0.2 0.2 0.1 -Total Square Cm 1.1 0.32 0.55 -Date of Last Picture (Recall this 05/24/23 field) -Photo Taken Yes Yes -Tunneling No No -Undermining/Tunneling No No -Circular Undermining No No -Exudate Amt Medium Medium Medium -Exudate Type Serosanguineous Serosanguineous Serosanguineous -Wound Margin Distinct, Distinct, Distinct, Outline Outline Outline Attached Attached Attached -Granulation Amt Medium (34-66%) Medium (34-66%) -Granulation Quality [place] -Slough/Fibrin Yes Yes -Necrosis Amt Medium (34-66%) Large (67-100%) Medium (34-66%) -Necrotic Tissue Type Adherent Slough Adherent Slough Adherent Slough -Structure Exposed N/A N/A -Texture (Jagruti-wound Skin Appearance) Assessed Assessed Scarring -Moisture (Jagruti-wound Skin Appearance) Maceration Assessed Assessed -Color (Jagruti-wound Skin Appearance) Assessed Assessed Assessed -Temperature (Jagruti-wound Skin No Abnormality No Abnormality No Abnormality Appearance) (Pt Warm) (Pt Warm) (Pt Warm) -Tenderness on Palpation (Jagruti-wound No No Skin Appearance) -Ulcer Cleansing Wound Cleanser Soap and Water Wound Cleanser -Foul Odor after Cleansing No No -Anesthetic Used 5% Lidocaine 5% Lidocaine 5% Lidocaine Gel Gel Gel Lower Limb Edema Present Yes Yes Right Calf (cm) 37.5 34.5 Right Ankle (cm) 22.3 21.4 Left Calf (cm) 36 Left Ankle (cm) 21 06/07/23 10:46 Wound Center Nurse 1 #3 RT MED ANKLE -Combined with other wound -Current Size (cm) - Length 0.9 -Current Size (cm) - Width 0.5 -Current Size (cm) - Depth 0.3 -Total Square Cm 0.45 -Date of Last Picture (Recall this field) -Photo Taken -Tunneling -Undermining/Tunneling -Circular Undermining -Exudate Amt Small -Exudate Type Serosanguineous -Wound Margin Distinct, Outline Attached -Granulation Amt Medium (34-66%) -Granulation Quality Red -Slough/Fibrin -Necrosis Amt Medium (34-66%) -Necrotic Tissue Type Adherent Slough -Structure Exposed -Texture (Jagruti-wound Skin Appearance) Assessed, Localized Edema -Moisture (Jagruti-wound Skin Appearance) Assessed -Color (Jagruti-wound Skin Appearance) Assessed -Temperature (Jagruti-wound Skin No Abnormality Appearance) (Pt Warm) -Tenderness on Palpation (Jagruti-wound Yes Skin Appearance) -Ulcer Cleansing Soap and Water -Foul Odor after Cleansing No -Anesthetic Used 5% Lidocaine Gel Lower Limb Edema Present Right Calf (cm) 34.5 Right Ankle (cm) 21.2 Left Calf (cm) Left Ankle (cm) WC - Nurse 2 - General Ulcer CM Notes Start: 05/17/23 10:33 Freq: Status: Active Protocol: Activity Type Activity Date Activity User E-sign Co-sign Detail Recorded Client Recorded Date Recorded By Document 05/17/23 11:05 [employer] Laptop 05/17/23 11:12 Document 05/24/23 09:37 Laptop 05/24/23 09:39 Document 05/31/23 11:21 Laptop 05/31/23 11:27 Document 06/07/23 11:11 Laptop 06/07/23 11:13 05/17/23 05/24/23 05/31/23 11:05 09:37 11:21 Wound Center Nurse 2 #3 RT MED ANKLE -Time 11:09 09:38 11:21 -Correct Patient Yes Yes Yes -Correct Side, Site, Position Yes Yes Yes -Correct Procedure Yes Yes Yes -Procedure Performed Yes Yes Yes -Type of Procedure Debridement Debridement Debridement -Clinical Debridement Subcutaneous Subcutaneous Subcutaneous -Tissue Removed Subcutaneous Subcutaneous Subcutaneous -Post Debridement (cm) - Length 1.0 0.8 0.5 -Post Debridement (cm) - Width 1.0 0.5 1.2 -Post Debridement (cm) - Depth 0.1 0.1 0.2 -Total Square (Post) (cm) 1.00 0.40 0.60 -Area of Debridement (cm) - Length 1.0 0.8 0.5 -Area of Debridement (cm) - Width 1.0 0.5 1.2 -Total Square (Area) (cm) 1.00 0.40 0.60 -Tunneling No No No -Undermining/Tunneling No No No -Circular Undermining No No No -Wound/Ulcer Outcome Not Healed Not Healed Not Healed -Ulcer Cleansing Rinsed/ Rinsed/ Rinsed/ Irrigated with Irrigated with Irrigated with Saline Saline Saline -Foul Odor after Cleansing No No No -Bioengineered Tissue No Yes Yes -Type of Bioengineered Tissue Epifix 18mm Epifix 18mm Disc Disc -Expiration Date 12/16/27 12/16/27 -Product Lot Number [id number] -Percent Used 100 100 -Lot number of Saline Used [id number] -Bleeding Controlled with Pressure Pressure Pressure -Treatment Response Procedure Procedure Procedure Tolerated Well Tolerated Well Tolerated Well -Offloading No No No -Debridement - Subq, 1st 20sq cm Yes No No -Apply Skin Sub - 1st 25 sq cm - Legs 1 1 -Epifix 18mm Disc 3 3 Pain Scale: 0-10 Numeric Is Patient Pain Free? Yes Yes Yes 06/07/23 11:11 Wound Center Nurse 2 #3 RT MED ANKLE -Time 11:11 -Correct Patient Yes -Correct Side, Site, Position Yes -Correct Procedure Yes -Procedure Performed Yes -Type of Procedure Debridement -Clinical Debridement Subcutaneous -Tissue Removed Subcutaneous -Post Debridement (cm) - Length 0.5 -Post Debridement (cm) - Width 1.1 -Post Debridement (cm) - Depth 0.3 -Total Square (Post) (cm) 0.55 -Area of Debridement (cm) - Length 0.5 -Area of Debridement (cm) - Width 1.1 -Total Square (Area) (cm) 0.55 -Tunneling No -Undermining/Tunneling No -Circular Undermining No -Wound/Ulcer Outcome Not Healed -Ulcer Cleansing Rinsed/ Irrigated with Saline -Foul Odor after Cleansing No -Bioengineered Tissue Yes -Type of Bioengineered Tissue Epifix 18mm Disc -Expiration Date 12/16/27 -Product Lot Number [id number] -Percent Used 100 -Lot number of Saline Used [id number] -Bleeding Controlled with Pressure -Treatment Response Procedure Tolerated Well -Offloading No -Debridement - Subq, 1st 20sq cm No -Apply Skin Sub - 1st 25 sq cm - Legs 1 -Epifix 18mm Disc 3 Pain Scale: 0-10 Numeric Is Patient Pain Free? Yes WC - Nurse 3 - General Ulcer D/C NN Start: 05/17/23 10:33 Freq: Status: Active Protocol: Activity Type Activity Date Activity User E-sign Co-sign Detail Recorded Client Recorded Date Recorded By Document 05/17/23 11:30 RB Desktop 05/17/23 11:34 RB Document 05/20/23 09:26 MT Desktop 05/20/23 09:42 MT Document 05/24/23 09:49 DL Desktop 05/24/23 09:51 DL Document 05/31/23 11:46 DL Desktop 05/31/23 11:47 DL 05/17/23 05/20/23 05/24/23 11:30 09:26 09:49 Wound Care Center Nurse 3 #3 RT MED ANKLE -Ulcer Cleansing Rinsed/ Soap and Water Not Cleansed Irrigated with Saline -Foul Odor after Cleansing No No -Negative Pressure Wound Therapy N/A -Primary Dressing Applied Aquacel AG 4x4 -Other Dressing aquacel ag Epifix -Primary Dressing Covered/Secured with Dry Gauze Dry Gauze, Dry Gauze Secured with Tape -Other Covering ABD -Aquacel AG 4x4 1 -Mepilex Border Right -Multi-Layered Wrap Application Multi-Layer Multi-Layer Multi-Layer Comp - Right ($ Comp - Right ($ Comp - Right ($ ) ) ) Treatment Response Procedure Procedure Tolerated Well Tolerated Well Vital Signs Temperature (97.8 F-99.1 F) 98 F Temperature Source Temporal Pulse Rate (60-100) 98 Pulse Location Monitor Respiratory Rate (12-18) 18 Respiratory rate source Observation Oxygen Delivery Method Room Air Blood Pressure (90/60-120/80) 173/68 H Blood Pressure Mean (mm Hg) 103 Source Monitor Position Sitting Blood Pressure Location Left Arm Pain Scale: 0-10 Numeric Is Patient Pain Free? Yes Yes Yes WC - Visit Discharge Discharge Condition Stable Stable Stable Ambulatory Status Ambulatory Ambulatory, Ambulatory, Walker Walker Transportation Private Auto Private Auto Private Auto Medication Reconcilliation completed & No No provided to patient/care provider Clinical Summary of Care Provided Yes Yes Notes: nurse visit Facility Type Home Health Orders Sent Yes 05/31/23 11:46 Wound Care Center Nurse 3 #3 RT MED ANKLE -Ulcer Cleansing Not Cleansed -Foul Odor after Cleansing No -Negative Pressure Wound Therapy -Primary Dressing Applied Mepilex Border -Other Dressing Epimesh -Primary Dressing Covered/Secured with -Other Covering -Aquacel AG 4x4 -Mepilex Border 1 Right -Multi-Layered Wrap Application Multi-Layer Comp - Right ($ ) Treatment Response Procedure Tolerated Well Vital Signs Temperature (97.8 F-99.1 F) Temperature Source Pulse Rate (60-100) Pulse Location Respiratory Rate (12-18) Respiratory rate source Oxygen Delivery Method Blood Pressure (90/60-120/80) Blood Pressure Mean (mm Hg) Source Position Blood Pressure Location Pain Scale: 0-10 Numeric Is Patient Pain Free? Yes WC - Visit Discharge Discharge Condition Stable Ambulatory Status Ambulatory, Walker Transportation Private Auto Medication Reconcilliation completed & provided to patient/care provider Clinical Summary of Care Provided Notes: Facility Type Home Health Orders Sent Yes Assessment/Plan Assessment/Plan (1) Non-pressure chronic ulcer of right ankle with fat layer exposed: CODE(S): L97.312 - Non-pressure chronic ulcer of right ankle with fat layer exposed PLAN: Exam performed Recent arterial studies within normal limits Patient has venous insufficiency with chronic venous venous leg ulceration rightlower extremity Right lower extremity wound was excisionally debrided down to including level ofsubcutaneous tissue of all nonviable tissue using a throat 3 mm dermal curette. Patient tolerated procedure well. Topical anesthesia used. Pre and postdebridement measurements documented nursing notes. Hemostasis obtained withlight compression. Today wound was 18 mm disc EpiFix graft. Entire graft used no waste. Graft wassecured with overlying wound veil and Steri-Strips. Applied hydrogel DSD with compression. Patient will follow-up in 1 week for continued care. (2) Venous insufficiency (chronic) (peripheral): CODE(S): I87.2 - Venous insufficiency (chronic) (peripheral) 06/07/23 1116 <Electronically signed by Nicky Cavanaugh DPM> Cosigner Signature (if applicable): CC: ~ Signed [facility] Work Phone: [phone]) 933-773104-16-2024 Progress note Author Nicky Cavanaugh [facility] May 31, 2023 11:30am Note Date/Time May 31, 2023 11: 30am [facility] [address] [place] [address] Progress Note - Wound Care 05/31/23 1129 MR#: [id number] Acct: [id number] Name: LAURA STARK Rep #:[id number] : 1955 68 From: Nicky Cavanaugh DPM PCP: Dr. Moreno Donnelly MD Status :REG RCR Location: History of Present Illness Date of Service: 05/31/23 Chief Complaint: Follow-up surgical wound dehiscence History of Wound: Patient has had this wound for several weeks and has noticed worsening with increased serous drainage. Patient denies any fever chills nausea vomiting chest pain calf pain shortness of breath.68-year-old female presents today with a venous leg ulceration to her right leg. Patient has no other complaints. Objective Data Objective Data Vital Signs: Vital Signs Temp Pulse Resp BP O2 Del Method 97.4 F L 83 18 154/74 H Room Air 05/31/23 11:02 05/31/23 11:02 05/31/23 11:02 05/31/23 11:02 05/31/23 11:02 Oxygen Delivery Method Room Air Weight: 247 kg Body Mass Index (BMI) 102.8 Physical Exam Narrative Vascular: Trophic changes to skin secondary to chronic venous insufficiency. Palpable dorsalis pedis and posterior tibial pulses, 2 out of 4 bilateral lower extremity. Atrophic changes noted to skin of the foot with skin thinning kind, shiny, taut appearance absent digital hair growth. Neurologic: Light touch protective sensation intact. No evidence of clonus or Babinski. Dermatologic: Full-thickness ulceration to the right medial ankle along course of great saphenous vein demonstrates a fibrogranular base. Pre and postdebridement measurements documented nursing notes. No deep probing or undermining. Some mild periwound erythema and warmth noted. No other signs of infection. Musculoskeletal: No pain with calf squeeze. No gross musculoskeletal deformity contributing to this wound formation. 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 Muscular strength is full to bilateral lower extremity compartments. Debridement Note Debridement Note Post-Debridement Measurements and Additional Note: Post-Debridement Measurements/Treatment WC - Nurse 1 - General Ulcer Assessment Start: 05/17/23 10:33 Freq: Status: Active Protocol: LOWEXT Activity Type Activity Date Activity User E-sign Co-sign Detail Recorded Client Recorded Date Recorded By Document 05/17/23 10:33 RB Desktop 05/17/23 10:46 RB Document 05/24/23 08:40 KW Desktop 05/24/23 08:45 KW Document 05/31/23 11:02 KW Desktop 05/31/23 11:12 KW 05/17/23 05/24/23 05/31/23 10:33 08:40 11:02 - Today's Visit Information Type of service Follow-up Visit Follow-up Visit Follow-up Visit (Physician/DAMPPROOFER (Physician/DAMPPROOFER (Physician/DAMPPROOFER ) ) ) Arrival Mode Ambulatory Ambulatory, Ambulatory, Walker Walker Transfer Assistance None Patient Identification Verified (Name & Yes Yes Yes ) Patient Requires Transmission-Based No Precautions Height and Weight Body Mass Index (BMI) 102.8 102.8 102.8 BMI Classification Obese Obese Obese Vital Signs Temperature (97.8 F-99.1 F) 97.3 F L 97.4 F L Temperature Source Temporal Temporal Pulse Rate (60-100) 92 95 83 Pulse Location Monitor Monitor Monitor Respiratory Rate (12-18) 18 18 18 Respiratory rate source Observation Observation Observation Oxygen Delivery Method Room Air Room Air Blood Pressure (90/60-120/80) 158/83 H 171/101 H 154/74 H Blood Pressure Mean (mm Hg) 108 124 100 Source Monitor Monitor Monitor Position Semi-Fowlers Sitting Semi-Fowlers Blood Pressure Location Left Arm Left Arm Left Forearm History Since Last Visit- (Skip if this is Patient's initial visit) Have you changed medications since your No No No last visit? Any new allergies or adverse reactions No No No Had a fall/change in ADL's that may No No No increase risk of falls Signs or symptoms of abuse and/or No No No neglect since last visit Have you been in the hospital since your No No No last visit? Has dressing in place as prescribed Yes Yes Yes Has compression in place as prescribed No Yes N/A Has offloadiing in place as prescribed Yes Yes Yes Experienced any changes in pain level or No No management Left Footwear Removable Cast Removable Cast Walker/Walking Walker/Walking Boot Boot Right Footwear Surgical Shoe Surgical Shoe with pressure with pressure relief insole relief insole Pain Scale: 0-10 Numeric Is Patient Pain Free? Yes Yes Yes WC - Nurse 1 - General Ulcer Measurement Start: 05/17/23 10:33 Freq: Status: Active Protocol: Activity Type Activity Date Activity User E-sign Co-sign Detail Recorded Client Recorded Date Recorded By Document 05/17/23 10:33 RB Desktop 05/17/23 10:46 RB Document 05/24/23 08:40 KW Desktop 05/24/23 08:45 KW Document 05/31/23 11:02 KW Desktop 05/31/23 11:12 KW 05/17/23 05/24/23 05/31/23 10:33 08:40 11:02 Wound Center Nurse 1 #3 RT MED ANKLE -Combined with other wound No No -Current Size (cm) - Length 1 0.8 1.1 -Current Size (cm) - Width 1.1 0.4 0.5 -Current Size (cm) - Depth 0.2 0.2 0.1 -Total Square Cm 1.1 0.32 0.55 -Date of Last Picture (Recall this 05/24/23 field) -Photo Taken Yes Yes -Tunneling No No -Undermining/Tunneling No No -Circular Undermining No No -Exudate Amt Medium Medium Medium -Exudate Type Serosanguineous Serosanguineous Serosanguineous -Wound Margin Distinct, Distinct, Distinct, Outline Outline Outline Attached Attached Attached -Granulation Amt Medium (34-66%) Medium (34-66%) -Granulation Quality [place] -Slough/Fibrin Yes Yes -Necrosis Amt Medium (34-66%) Large (67-100%) Medium (34-66%) -Necrotic Tissue Type Adherent Slough Adherent Slough Adherent Slough -Structure Exposed N/A N/A -Texture (Jagruti-wound Skin Appearance) Assessed Assessed Scarring -Moisture (Jagruti-wound Skin Appearance) Maceration Assessed Assessed -Color (Jagruti-wound Skin Appearance) Assessed Assessed Assessed -Temperature (Jagruti-wound Skin No Abnormality No Abnormality No Abnormality Appearance) (Pt Warm) (Pt Warm) (Pt Warm) -Tenderness on Palpation (Jagruti-wound No No Skin Appearance) -Ulcer Cleansing Wound Cleanser Soap and Water Wound Cleanser -Foul Odor after Cleansing No No -Anesthetic Used 5% Lidocaine 5% Lidocaine 5% Lidocaine Gel Gel Gel Lower Limb Edema Present Yes Yes Right Calf (cm) 37.5 34.5 Right Ankle (cm) 22.3 21.4 Left Calf (cm) 36 Left Ankle (cm) 21 WC - Nurse 2 - General Ulcer CM Notes Start: 05/17/23 10:33 Freq: Status: Active Protocol: Activity Type Activity Date Activity User E-sign Co-sign Detail Recorded Client Recorded Date Recorded By Document 05/17/23 11:05 WeTag Laptop 05/17/23 11:12 Document 05/24/23 09:37 WeTag Laptop 05/24/23 09:39 Document 05/31/23 11:21 Laptop 05/31/23 11:27 05/17/23 05/24/23 05/31/23 11:05 09:37 11:21 Wound Center Nurse 2 #3 RT MED ANKLE -Time 11:09 09:38 11:21 -Correct Patient Yes Yes Yes -Correct Side, Site, Position Yes Yes Yes -Correct Procedure Yes Yes Yes -Procedure Performed Yes Yes Yes -Type of Procedure Debridement Debridement Debridement -Clinical Debridement Subcutaneous Subcutaneous Subcutaneous -Tissue Removed Subcutaneous Subcutaneous Subcutaneous -Post Debridement (cm) - Length 1.0 0.8 0.5 -Post Debridement (cm) - Width 1.0 0.5 1.2 -Post Debridement (cm) - Depth 0.1 0.1 0.2 -Total Square (Post) (cm) 1.00 0.40 0.60 -Area of Debridement (cm) - Length 1.0 0.8 0.5 -Area of Debridement (cm) - Width 1.0 0.5 1.2 -Total Square (Area) (cm) 1.00 0.40 0.60 -Tunneling No No No -Undermining/Tunneling No No No -Circular Undermining No No No -Wound/Ulcer Outcome Not Healed Not Healed Not Healed -Ulcer Cleansing Rinsed/ Rinsed/ Rinsed/ Irrigated with Irrigated with Irrigated with Saline Saline Saline -Foul Odor after Cleansing No No No -Bioengineered Tissue No Yes Yes -Type of Bioengineered Tissue Epifix 18mm Epifix 18mm Disc Disc -Expiration Date 12/16/27 12/16/27 -Product Lot Number [id number] -Percent Used 100 100 -Lot number of Saline Used [id number] -Bleeding Controlled with Pressure Pressure Pressure -Treatment Response Procedure Procedure Procedure Tolerated Well Tolerated Well Tolerated Well -Offloading No No No -Debridement - Subq, 1st 20sq cm Yes No No -Apply Skin Sub - 1st 25 sq cm - Legs 1 1 -Epifix 18mm Disc 3 3 Pain Scale: 0-10 Numeric Is Patient Pain Free? Yes Yes Yes WC - Nurse 3 - General Ulcer D/C NN Start: 05/17/23 10:33 Freq: Status: Active Protocol: Activity Type Activity Date Activity User E-sign Co-sign Detail Recorded Client Recorded Date Recorded By Document 05/17/23 11:30 RB Desktop 05/17/23 11:34 RB Document 05/20/23 09:26 MT Desktop 05/20/23 09:42 MT Document 05/24/23 09:49 DL Desktop 05/24/23 09:51 DL 05/17/23 05/20/23 05/24/23 11:30 09:26 09:49 Wound Care Center Nurse 3 #3 RT MED ANKLE -Ulcer Cleansing Rinsed/ Soap and Water Not Cleansed Irrigated with Saline -Foul Odor after Cleansing No No -Negative Pressure Wound Therapy N/A -Primary Dressing Applied Aquacel AG 4x4 -Other Dressing aquacel ag Epifix -Primary Dressing Covered/Secured with Dry Gauze Dry Gauze, Dry Gauze Secured with Tape -Other Covering ABD -Aquacel AG 4x4 1 Right -Multi-Layered Wrap Application Multi-Layer Multi-Layer Multi-Layer Comp - Right ($ Comp - Right ($ Comp - Right ($ ) ) ) Treatment Response Procedure Procedure Tolerated Well Tolerated Well Vital Signs Temperature (97.8 F-99.1 F) 98 F Temperature Source Temporal Pulse Rate (60-100) 98 Pulse Location Monitor Respiratory Rate (12-18) 18 Respiratory rate source Observation Oxygen Delivery Method Room Air Blood Pressure (90/60-120/80) 173/68 H Blood Pressure Mean (mm Hg) 103 Source Monitor Position Sitting Blood Pressure Location Left Arm Pain Scale: 0-10 Numeric Is Patient Pain Free? Yes Yes Yes WC - Visit Discharge Discharge Condition Stable Stable Stable Ambulatory Status Ambulatory Ambulatory, Ambulatory, Walker Walker Transportation Private Auto Private Auto Private Auto Medication Reconcilliation completed & No No provided to patient/care provider Clinical Summary of Care Provided Yes Yes Notes: nurse visit Facility Type Home Health Orders Sent Yes Assessment/Plan Assessment/Plan (1) Non-pressure chronic ulcer of right ankle with fat layer exposed: CODE(S): L97.312 - Non-pressure chronic ulcer of right ankle with fat layer exposed PLAN: Exam performed Recent arterial studies within normal limits Patient has venous insufficiency with chronic venous venous leg ulceration rightlower extremity Right lower extremity wound was excisionally debrided down to including level ofsubcutaneous tissue of all nonviable tissue using a throat 3 mm dermal curette. Patient tolerated procedure well. Topical anesthesia used. Pre and postdebridement measurements documented nursing notes. Hemostasis obtained withlight compression. Today wound was 18 mm disc EpiFix graft. Entire graft used no waste. Graft wassecured with overlying wound veil and Steri-Strips. Applied hydrogel DSD with compression. Patient will follow-up in 1 week for continued care. (2) Venous insufficiency (chronic) (peripheral): CODE(S): I87.2 - Venous insufficiency (chronic) (peripheral) 05/31/23 1130 <Electronically signed by Nicky Cavanaugh DPM> Cosigner Signature (if applicable): CC: ~ Signed [facility] Work Phone: 1(944) 723-808904-09-2024 Progress note Author Nicky Cavanaugh [facility] May 24, 2023 10:31am Note Date/Time May 24, 2023 10:3 0am [facility] [address] [place] [address] Progress Note - Wound Care 05/24/23 1029 MR#: [id number] Acct: [id number] Name: LAURA STARK Rep #:[id number] : 1955 68 From: Nicky Cavanaugh DPM PCP: Dr. Moreno Donnelly MD Status :REG RCR Location: WC ADDENDUM by ROBERT Cavanaugh on 05/24/23 at 1030 Addendum Today and EpiFix graft, 18 mm disc was applied to the right lower extremity medial ankle wound site. Entire graft was used. This was secured with overlying Adaptic and Steri-Strips. Dry sterile dressing and 3M compression were additionally wrapped over site. 05/24/23 1030<Electronically signed by Nicky Cavanaugh DPM> Cosigner Signature (if applicable): cc: ~* Signed History of Present Illness Date of Service: 05/24/23 Chief Complaint: Follow-up surgical wound dehiscence History of Wound: Patient has had this wound for several weeks and has noticed worsening with increased serous drainage. Patient denies any fever chills nausea vomiting chest pain calf pain shortness of breath.68-year-old female presents today with a venous leg ulceration to her right leg. Patient has no other complaints. Objective Data Objective Data Vital Signs: Vital Signs Temp Pulse Resp BP O2 Del Method 98 F 95 18 171/101 H Room Air 05/20/23 09:26 05/24/23 08:40 05/24/23 08:40 05/24/23 08:40 05/24/23 08:40 Oxygen Delivery Method Room Air Weight: 247 kg Body Mass Index (BMI) 102.8 Physical Exam Narrative Vascular: Trophic changes to skin secondary to chronic venous insufficiency. Palpable dorsalis pedis and posterior tibial pulses, 2 out of 4 bilateral lower extremity. Atrophic changes noted to skin of the foot with skin thinning kind, shiny, taut appearance absent digital hair growth. Neurologic: Light touch protective sensation intact. No evidence of clonus or Babinski. Dermatologic: Full-thickness ulceration to the right medial ankle along course of great saphenous vein demonstrates a fibrogranular base. Pre and postdebridement measurements documented nursing notes. No deep probing or undermining. Some mild periwound erythema and warmth noted. No other signs of infection. Musculoskeletal: No pain with calf squeeze. No gross musculoskeletal deformity contributing to this wound formation. 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 Muscular strength is full to bilateral lower extremity compartments. Debridement Note Debridement Note Post-Debridement Measurements and Additional Note: Post-Debridement Measurements/Treatment WC - Nurse 1 - General Ulcer Assessment Start: 05/17/23 10:33 Freq: Status: Active Protocol: MIKE Activity Type Activity Date Activity User E-sign Co-sign Detail Recorded Client Recorded Date Recorded By Document 05/17/23 10:33 RB Desktop 05/17/23 10:46 RB Document 05/24/23 08:40 KW Desktop 05/24/23 08:45 KW 05/17/23 05/24/23 10:33 08:40 WC - Today's Visit Information Type of service Follow-up Visit Follow-up Visit (Physician/DAMPPROOFER (Physician/DAMPPROOFER ) ) Arrival Mode Ambulatory Ambulatory, Walker Transfer Assistance None Patient Identification Verified (Name & Yes Yes ) Patient Requires Transmission-Based No Precautions Height and Weight Body Mass Index (BMI) 102.8 102.8 BMI Classification Obese Obese Vital Signs Temperature (97.8 F-99.1 F) 97.3 F L Temperature Source Temporal Pulse Rate (60-100) 92 95 Pulse Location Monitor Monitor Respiratory Rate (12-18) 18 18 Respiratory rate source Observation Observation Oxygen Delivery Method Room Air Blood Pressure (90/60-120/80) 158/83 H 171/101 H Blood Pressure Mean (mm Hg) 108 124 Source Monitor Monitor Position Semi-Fowlers Sitting Blood Pressure Location Left Arm Left Arm History Since Last Visit- (Skip if this is Patient's initial visit) Have you changed medications since your No No last visit? Any new allergies or adverse reactions No No Had a fall/change in ADL's that may No No increase risk of falls Signs or symptoms of abuse and/or No No neglect since last visit Have you been in the hospital since your No No last visit? Has dressing in place as prescribed Yes Yes Has compression in place as prescribed No Yes Has offloadiing in place as prescribed Yes Yes Experienced any changes in pain level or No No management Left Footwear Removable Cast Walker/Walking Boot Right Footwear Surgical Shoe with pressure relief insole Pain Scale: 0-10 Numeric Is Patient Pain Free? Yes Yes FABRIZIO - Nurse 1 - General Ulcer Measurement Start: 05/17/23 10:33 Freq: Status: Active Protocol: Activity Type Activity Date Activity User E-sign Co-sign Detail Recorded Client Recorded Date Recorded By Document 05/17/23 10:33 RB Desktop 05/17/23 10:46 RB Document 05/24/23 08:40 KW Desktop 05/24/23 08:45 KW 05/17/23 05/24/23 10:33 08:40 Wound Center Nurse 1 #3 RT MED ANKLE -Combined with other wound No -Current Size (cm) - Length 1 0.8 -Current Size (cm) - Width 1.1 0.4 -Current Size (cm) - Depth 0.2 0.2 -Total Square Cm 1.1 0.32 -Date of Last Picture (Recall this 05/24/23 field) -Photo Taken Yes -Tunneling No -Undermining/Tunneling No -Circular Undermining No -Exudate Amt Medium Medium -Exudate Type Serosanguineous Serosanguineous -Wound Margin Distinct, Distinct, Outline Outline Attached Attached -Granulation Amt Medium (34-66%) -Granulation Quality [place] -Slough/Fibrin Yes -Necrosis Amt Medium (34-66%) Large (67-100%) -Necrotic Tissue Type Adherent Slough Adherent Slough -Structure Exposed N/A -Texture (Jagruti-wound Skin Appearance) Assessed Assessed -Moisture (Jagruti-wound Skin Appearance) Maceration Assessed -Color (Jagruti-wound Skin Appearance) Assessed Assessed -Temperature (Jagruti-wound Skin No Abnormality No Abnormality Appearance) (Pt Warm) (Pt Warm) -Tenderness on Palpation (Jagruti-wound No Skin Appearance) -Ulcer Cleansing Wound Cleanser Soap and Water -Foul Odor after Cleansing No -Anesthetic Used 5% Lidocaine 5% Lidocaine Gel Gel Lower Limb Edema Present Yes Right Calf (cm) 37.5 34.5 Right Ankle (cm) 22.3 21.4 WC - Nurse 2 - General Ulcer CM Notes Start: 05/17/23 10:33 Freq: Status: Active Protocol: Activity Type Activity Date Activity User E-sign Co-sign Detail Recorded Client Recorded Date Recorded By Document 05/17/23 11:05 Laptop 05/17/23 11:12 Document 05/24/23 09:37 Laptop 05/24/23 09:39 JF 05/17/23 05/24/23 11:05 09:37 Wound Center Nurse 2 #3 RT MED ANKLE -Time 11:09 09:38 -Correct Patient Yes Yes -Correct Side, Site, Position Yes Yes -Correct Procedure Yes Yes -Procedure Performed Yes Yes -Type of Procedure Debridement Debridement -Clinical Debridement Subcutaneous Subcutaneous -Tissue Removed Subcutaneous Subcutaneous -Post Debridement (cm) - Length 1.0 0.8 -Post Debridement (cm) - Width 1.0 0.5 -Post Debridement (cm) - Depth 0.1 0.1 -Total Square (Post) (cm) 1.00 0.40 -Area of Debridement (cm) - Length 1.0 0.8 -Area of Debridement (cm) - Width 1.0 0.5 -Total Square (Area) (cm) 1.00 0.40 -Tunneling No No -Undermining/Tunneling No No -Circular Undermining No No -Wound/Ulcer Outcome Not Healed Not Healed -Ulcer Cleansing Rinsed/ Rinsed/ Irrigated with Irrigated with Saline Saline -Foul Odor after Cleansing No No -Bioengineered Tissue No Yes -Type of Bioengineered Tissue Epifix 18mm Disc -Expiration Date 12/16/27 -Product Lot Number [id number] -Percent Used 100 -Lot number of Saline Used [id number] -Bleeding Controlled with Pressure Pressure -Treatment Response Procedure Procedure Tolerated Well Tolerated Well -Offloading No No -Debridement - Subq, 1st 20sq cm Yes No -Apply Skin Sub - 1st 25 sq cm - Legs 1 -Epifix 18mm Disc 3 Pain Scale: 0-10 Numeric Is Patient Pain Free? Yes Yes WC - Nurse 3 - General Ulcer D/C NN Start: 05/17/23 10:33 Freq: Status: Active Protocol: Activity Type Activity Date Activity User E-sign Co-sign Detail Recorded Client Recorded Date Recorded By Document 05/17/23 11:30 RB Desktop 05/17/23 11:34 RB Document 05/20/23 09:26 MT Desktop 05/20/23 09:42 MT Document 05/24/23 09:49 DL Desktop 05/24/23 09:51 DL 05/17/23 05/20/23 05/24/23 11:30 09:26 09:49 Wound Care Center Nurse 3 #3 RT MED ANKLE -Ulcer Cleansing Rinsed/ Soap and Water Not Cleansed Irrigated with Saline -Foul Odor after Cleansing No No -Negative Pressure Wound Therapy N/A -Primary Dressing Applied Aquacel AG 4x4 -Other Dressing aquacel ag Epifix -Primary Dressing Covered/Secured with Dry Gauze Dry Gauze, Dry Gauze Secured with Tape -Other Covering ABD -Aquacel AG 4x4 1 Right -Multi-Layered Wrap Application Multi-Layer Multi-Layer Multi-Layer Comp - Right ($ Comp - Right ($ Comp - Right ($ ) ) ) Treatment Response Procedure Procedure Tolerated Well Tolerated Well Vital Signs Temperature (97.8 F-99.1 F) 98 F Temperature Source Temporal Pulse Rate (60-100) 98 Pulse Location Monitor Respiratory Rate (12-18) 18 Respiratory rate source Observation Oxygen Delivery Method Room Air Blood Pressure (90/60-120/80) 173/68 H Blood Pressure Mean (mm Hg) 103 Source Monitor Position Sitting Blood Pressure Location Left Arm Pain Scale: 0-10 Numeric Is Patient Pain Free? Yes Yes Yes WC - Visit Discharge Discharge Condition Stable Stable Stable Ambulatory Status Ambulatory Ambulatory, Ambulatory, Walker Walker Transportation Private Auto Private Auto Private Auto Medication Reconcilliation completed & No No provided to patient/care provider Clinical Summary of Care Provided Yes Yes Notes: nurse visit Facility Type Home Health Orders Sent Yes Assessment/Plan Assessment/Plan (1) Non-pressure chronic ulcer of right ankle with fat layer exposed: CODE(S): L97.312 - Non-pressure chronic ulcer of right ankle with fat layer exposed PLAN: Exam performed Recent arterial studies within normal limits Patient has venous insufficiency with chronic venous venous leg ulceration rightlower extremity Right lower extremity wound was excisionally debrided down to including level ofsubcutaneous tissue of all nonviable tissue using a throat 3 mm dermal curette. Patient tolerated procedure well. Topical anesthesia used. Pre and postdebridement measurements documented nursing notes. Hemostasis obtained withlight compression. Today wound was dressed with Aquacel Ag, 3m compression wrap. Patient will follow-up in 1 week for continued care. Postdebridement the wound was flushed and cultured patient was given a prescription for doxycycline. (2) Venous insufficiency (chronic) (peripheral): CODE(S): I87.2 - Venous insufficiency (chronic) (peripheral) 05/24/23 1030 <Electronically signed by Nicky Cavanaugh DPM> Cosigner Signature (if applicable): CC: ~ Signed [facility] Work Phone: 1(161) 556-518004-02-2024 Progress note Author Nicky Cavanaugh [facility] May 17, 2023 11:18am Note Date/Time May 17, 2023 11:1 8am [facility] [address] [place] [address] Progress Note - Wound Care 05/17/23 1115 MR#: [id number] Acct: [id number] Name: LAURA STARK Rep #:[id number] : 1955 68 From: Nicky Cavanaugh DPM PCP: Dr. Ervin Donnelly MD Status: REG RCR Location: History of Present Illness Date of Service: 05/17/23 Chief Complaint: Follow-up surgical wound dehiscence History of Wound: Patient has had this wound for several weeks and has noticed worsening with increased serous drainage. Patient denies any fever chills nausea vomiting chest pain calf pain shortness of breath.68-year-old female presents today with a venous leg ulceration to her right leg. Patient has no other complaints. Objective Data Objective Data Vital Signs: Vital Signs Temp Pulse Resp BP 97.3 F L 92 18 158/83 H 05/17/23 10:33 05/17/23 10:33 05/17/23 10:33 05/17/23 10:33 Weight: 247 kg Body Mass Index (BMI) 102.8 Physical Exam Narrative Vascular: Trophic changes to skin secondary to chronic venous insufficiency. Palpable dorsalis pedis and posterior tibial pulses, 2 out of 4 bilateral lower extremity. Atrophic changes noted to skin of the foot with skin thinning kind, shiny, taut appearance absent digital hair growth. Neurologic: Light touch protective sensation intact. No evidence of clonus or Babinski. Dermatologic: Full-thickness ulceration to the right medial ankle along course of great saphenous vein demonstrates a fibrogranular base. Pre and postdebridement measurements documented nursing notes. No deep probing or undermining. Some mild periwound erythema and warmth noted. No other signs of infection. Musculoskeletal: No pain with calf squeeze. No gross musculoskeletal deformity contributing to this wound formation. 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 Muscular strength is full to bilateral lower extremity compartments. Debridement Note Debridement Note Post-Debridement Measurements and Additional Note: Post-Debridement Measurements/Treatment - Nurse 1 - General Ulcer Assessment Start: 05/17/23 10:33 Freq: Status: Active Protocol: MIKE Activity Type Activity Date Activity User E-sign Co-sign Detail Recorded Client Recorded Date Recorded By Document 05/17/23 10:33 RB Desktop 05/17/23 10:46 RB 05/17/23 10:33 WC - Today's Visit Information Type of service Follow-up Visit (Physician/DAMPPROOFER ) Arrival Mode Ambulatory Transfer Assistance None Patient Identification Verified (Name & Yes ) Patient Requires Transmission-Based No Precautions Height and Weight Body Mass Index (BMI) 102.8 BMI Classification Obese Vital Signs Temperature (97.8 F-99.1 F) 97.3 F L Temperature Source Temporal Pulse Rate (60-100) 92 Pulse Location Monitor Respiratory Rate (12-18) 18 Respiratory rate source Observation Blood Pressure (90/60-120/80) 158/83 H Blood Pressure Mean (mm Hg) 108 Source Monitor Position Semi-Fowlers Blood Pressure Location Left Arm History Since Last Visit- (Skip if this is Patient's initial visit) Have you changed medications since your No last visit? Any new allergies or adverse reactions No Had a fall/change in ADL's that may No increase risk of falls Signs or symptoms of abuse and/or No neglect since last visit Have you been in the hospital since your No last visit? Has dressing in place as prescribed Yes Has compression in place as prescribed No Has offloadiing in place as prescribed Yes Experienced any changes in pain level or No management Pain Scale: 0-10 Numeric Is Patient Pain Free? Yes - Nurse 1 - General Ulcer Measurement Start: 05/17/23 10:33 Freq: Status: Active Protocol: Activity Type Activity Date Activity User E-sign Co-sign Detail Recorded Client Recorded Date Recorded By Document 05/17/23 10:33 RB Desktop 05/17/23 10:46 RB 05/17/23 10:33 Wound Center Nurse 1 #3 RT MED ANKLE -Combined with other wound No -Current Size (cm) - Length 1 -Current Size (cm) - Width 1.1 -Current Size (cm) - Depth 0.2 -Total Square Cm 1.1 -Tunneling No -Undermining/Tunneling No -Circular Undermining No -Exudate Amt Medium -Exudate Type Serosanguineous -Wound Margin Distinct, Outline Attached -Granulation Amt Medium (34-66%) -Granulation Quality [place] -Slough/Fibrin Yes -Necrosis Amt Medium (34-66%) -Necrotic Tissue Type Adherent Slough -Structure Exposed N/A -Texture (Jagruti-wound Skin Appearance) Assessed -Moisture (Jagruti-wound Skin Appearance) Maceration -Color (Jagruti-wound Skin Appearance) Assessed -Temperature (Jagruti-wound Skin No Abnormality Appearance) (Pt Warm) -Tenderness on Palpation (Jagruti-wound No Skin Appearance) -Ulcer Cleansing Wound Cleanser -Foul Odor after Cleansing No -Anesthetic Used 5% Lidocaine Gel Lower Limb Edema Present Yes Right Calf (cm) 37.5 Right Ankle (cm) 22.3 WC - Nurse 2 - General Ulcer CM Notes Start: 05/17/23 10:33 Freq: Status: Active Protocol: Activity Type Activity Date Activity User E-sign Co-sign Detail Recorded Client Recorded Date Recorded By Document 05/17/23 11:05 Laptop 05/17/23 11:12 05/17/23 11:05 Wound Center Nurse 2 #3 RT MED ANKLE -Time 11:09 -Correct Patient Yes -Correct Side, Site, Position Yes -Correct Procedure Yes -Procedure Performed Yes -Type of Procedure Debridement -Clinical Debridement Subcutaneous -Tissue Removed Subcutaneous -Post Debridement (cm) - Length 1.0 -Post Debridement (cm) - Width 1.0 -Post Debridement (cm) - Depth 0.1 -Total Square (Post) (cm) 1.00 -Area of Debridement (cm) - Length 1.0 -Area of Debridement (cm) - Width 1.0 -Total Square (Area) (cm) 1.00 -Tunneling No -Undermining/Tunneling No -Circular Undermining No -Wound/Ulcer Outcome Not Healed -Ulcer Cleansing Rinsed/ Irrigated with Saline -Foul Odor after Cleansing No -Bioengineered Tissue No -Bleeding Controlled with Pressure -Treatment Response Procedure Tolerated Well -Offloading No -Debridement - Subq, 1st 20sq cm Yes Pain Scale: 0-10 Numeric Is Patient Pain Free? 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 Patient tolerated procedure well. Topical anesthesia used. Pre and postdebridement measurements documented nursing notes. Hemostasis obtained withlight compression. Today wound was dressed with Aquacel Ag, 3m compression wrap. Patient will follow-up in 1 week for continued care. Postdebridement the wound was flushed and cultured patient was given a prescription for doxycycline. (2) Venous insufficiency (chronic) (peripheral): CODE(S): I87.2 - Venous insufficiency (chronic) (peripheral) 05/17/23 1118 <Electronically signed by Nicky Cavanaugh DPM> Cosigner Signature (if applicable): CC: ~ Signed [facility] Work Phone: [phone]) 421-535003-26-2024 History and physical note Author Nicky Cavanaugh [facility] May 10, 2023 10:37am Note Date/Time May 10, 2023 10: 38am [facility] [address] [place] [address] H&P Exam - Wound Care 05/10/23 1032 MR#: [id number] Acct: [id number] Name: LAURA STARK Rep #:[id number] : 1955 68 From: Nicky Cavanaugh DPM PCP: Dr. Ervin Donnelly MD Status: REG RCR Location: History of Present Illness Date of Service: 05/10/23 Chief Complaint: Follow-up surgical wound dehiscence History of Wound: Patient has had this wound for several weeks and has noticedworsening with increased serous drainage. Patient denies any fever chills nausea vomiting chest pain calf pain shortness of breath.68-year-old female presents today with a venous leg ulceration to her right leg. Patient has no other complaints. [facility]LY [facility] Medical History Abnormal chest CT Acute bronchiolitis Acute respiratory failure ALEXYS (acute kidney injury) Allergic rhinitis Allergic rhinitis Anemia Anxiety Aspiration into airway Asthma Atrial fibrillation Atrial fibrillation with rapid ventricular response Atrial tachycardia Back pain Benign essential HTN Bronchiectasis Bronchiectasis with (acute) exacerbation Cardiology follow-up encounter Cavitary lesion of lung Cellulitis of right lower extremity Chronic diastolic congestive heart failure Chronic diastolic heart failure Chronic respiratory failure Coarse tremors COLD (chronic obstructive lung disease) Congestive heart failure (CHF) COPD with acute exacerbation Cough Diabetes Diabetes mellitus DVT (deep venous thrombosis) Easy bruising Essential hypertension Former smoker Gastroesophageal reflux disease Gastroesophageal reflux disease HCAP (healthcare-associated pneumonia) High cholesterol History of COPD History of diabetes mellitus History of DVT (deep vein thrombosis) History of echocardiogram History of edema 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 History of renal disease History of stress test Hx pulmonary embolism Hyperlipidemia Hyperlipidemia Hypertension Hypertension Hypothyroidism Hypothyroidism Hypoxemia Injury of back Insomnia Iron deficiency anemia Kidney disease Lung nodule Migraine headache Morbid obesity MRSA pneumonia Obesity GAGAN (obstructive sleep apnea) Pain of left hip Palpitations Paroxysmal atrial fibrillation Paroxysmal atrial tachycardia Pneumonia Pneumonia due to Pseudomonas Precordial chest pain Pulmonary embolism PVD (peripheral vascular disease) Right foot pain Septic shock Severe sepsis Shortness of breath Shortness of breath on exertion Steroid myopathy Tachycardia Thrush, oral Umbilical hernia Venous thromboembolism (VTE) Vitamin D deficiency Walker as ambulation aid Weakness Wears glasses Home Medications levothyroxine 25 mcg tablet 25 mcg PO DAILY@0600 thyroid 01/04/20 [History Last Taken 09/16/21 08:00] famotidine 40 mg tablet 40 mg PO QHS reflux 04/02/20 [History Last Taken 07/03/21 23:04] cholecalciferol (vitamin D3) 50 mcg (2,000 unit) capsule 50 mcg PO DAILY SUPPLEMENT 09/19/20 [History Last Taken 07/04/21 05:54] furosemide 40 mg tablet (Lasix) 40 mg PO BID water pill 09/19/20 [History Last Taken 07/04/21 05:52] esomeprazole magnesium 40 mg capsule,delayed release (Nexium) 40 mg PO DAILY reflux 10/13/20 [History Last Taken 09/16/21 08:00] potassium chloride 20 mEq tablet,extended release(part/cryst) 20 meq PO BID supplement 10/13/20 [History Last Taken 07/03/21 07:56] ferrous sulfate 325 mg (65 mg iron) tablet 325 mg PO DAILY anemia 06/26/21 [History Last Taken 07/03/21 11:43] acetaminophen 500 mg tablet 1,000 mg (2 x 500 mg) PO Q8 PRN pain of temp > 101 #0 tabs 07/14/21 [Rx Last Taken 07/04/21 05:51] albuterol sulfate 2.5 mg/3 mL (0.083 %) solution for nebulization 2.5 mg (3 mL) inhalation Q4H PRN breathing #180 vials 05/17/22 [Rx Last Taken Unknown] tramadol 50 mg tablet 50 mg PO BID PRN 11/16/22 [History Last Taken Unknown] albuterol sulfate 90 mcg/actuation aerosol inhaler (Ventolin HFA) 2 puff inhalation Q4H PRN shortness of breath or wheezing #1 ea 12/10/22 [Rx Last Taken Unknown] fluticasone propionate 230 mcg-salmeterol 21 mcg/actuation HFA inhaler (Advair HFA) 2 puff inhalation BID lungs #3 ea 12/10/22 [Rx Last Taken Unknown] montelukast 10 mg tablet (Singulair) 10 mg PO QHS asthma #90 tabs 12/10/22 [Rx Last Taken Unknown] atorvastatin 10 mg tablet 10 mg PO QHS #90 tabs 12/21/22 [Rx Last Taken Unknown] apixaban 5 mg tablet (Eliquis) 5 mg PO BID anticoagulant #180 tabs 02/28/23 [Rx Last Taken Unknown] diltiazem HCl 180 mg capsule,extended release 24 hr (Cardizem CD) 180 mg PO DAILY heart #90 caps 02/28/23 [Rx Last Taken Unknown] flecainide 50 mg tablet 50 mg PO BID HEART #180 tabs 02/28/23 [Rx Last Taken Unknown] ipratropium bromide 42 mcg (0.06 %) nasal spray intranasal TID 03/10/23 [History Last Taken Unknown] latanoprost 0.005 % eye drops drp ophthalmic (eye) QPM 03/10/23 [History Last Taken Unknown] doxycycline hyclate 100 mg tablet 100 mg PO BID #20 tabs 04/01/23 [Rx Last Taken Unknown] Allergy/AdvReac Type Severity Reaction Status Date / Time adhesive Allergy SKIN Verified 03/10/23 10:42 TEARS. PAPER TAPE OK azithromycin [From Zithromax] Allergy Rash Verified 03/10/23 10:42 cefuroxime sodium Allergy Rash Verified 03/10/23 10:42 [From Zinacef] clindamycin Allergy Hives Verified 03/10/23 10:42 nitrofurantoin Allergy Rash Verified 03/10/23 10:42 macrocrystalline [From Macrodantin] Sulfa (Sulfonamide Allergy Rash Verified 03/10/23 10:42 Antibiotics) atenolol AdvReac Severe Peripheal Verified 03/10/23 10:42 edema & cough metoprolol [From Toprol XL] AdvReac Severe Peripheral Verified 03/10/23 10:42 edema & cough duloxetine [From Cymbalta] AdvReac Intermediate made me Verified 03/10/23 10:42 feel really sick Corticosteroids AdvReac Other Verified 03/10/23 10:42 (Glucocorticoids) oxycodone HCl [From Percocet] AdvReac Vomiting Verified 03/10/23 10:42 Family History Mother Hypertension Diabetes Heart disease Pulmonary embolism Father Perforated ulcer Respiratory failure Sister Asthma Hypertension Surgical History H/O section H/O foot surgery H/O hernia repair H/O shoulder surgery H/O: hysterectomy History of appendectomy History of cardioversion (~12/2016) History of left heart catheterization History of total left hip replacement Hx of vein stripping S/P hip replacement S/P hysterectomy Status post hip replacement Status post total hip replacement, left Social History household members: none Smoking Status: Former smoker quit date: 02/14/75 pack-years: 3 second hand exposure: No alcohol intake: never substance use type: does not use caffeine: No what type of physical activity do you participate in: none ROS Constitutional Constitutional: Denies body ache(s), change in weight or fever(s) Eyes Eyes: Denies acute decrease in peripheral vision, change in eye color or discongugate gaze ENT HEENT: Denies abnormal hearing, bleeding gums or dysphagia Cardiovascular Cardiovascular: Denies abdominal bloating, abdominal edema or bluish discoloration of hand/feet Respiratory/Chest Respiratory/Chest: Denies change in mental status, change in phlegm color or difficulty clearing secretions Gastrointestinal Gastrointestinal: Denies anorexia, belching or coffee ground emesis Vital Signs Vital Signs Vital Signs: 05/10/23 10:07 Temperature 97.4 F L Temperature Source Temporal Pulse Rate 85 Respiratory Rate 18 Blood Pressure 190/75 H Blood Pressure Mean 113 Blood Pressure Source Monitor Blood Pressure Position Sitting Blood Pressure Location Right Forearm Oxygen Delivery Method Room Air Weight Weight: 247 kg Body Mass Index (BMI) 102.8 Physical Exam Narrative Vascular: Trophic changes to skin secondary to chronic venous insufficiency. Palpable dorsalis pedis and posterior tibial pulses, 2 out of 4 bilateral lower extremity. Atrophic changes noted to skin of the foot with skin thinning kind, shiny, taut appearance absent digital hair growth. Neurologic: Light touch protective sensation intact. No evidence of clonus or Babinski. Dermatologic: Full-thickness ulceration to the right medial ankle along course of great saphenous vein demonstrates a fibrogranular base. Pre and postdebridement measurements documented nursing notes. No deep probing or undermining. Some mild periwound erythema and warmth noted. No other signs of infection. Musculoskeletal: No pain with calf squeeze. No gross musculoskeletal deformity contributing to this wound formation. 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 Muscular strength is full to bilateral lower extremity compartments. Debridement Note Debridement Note Post-Debridement Measurements and Additional Note: Post-Debridement Measurements/Treatment - Nurse 1 - General Ulcer Assessment Start: 05/10/23 09:49 Freq: Status: Active Protocol: .LOWEXT Activity Type Activity Date Activity User E-sign Co-sign Detail Recorded Client Recorded Date Recorded By Document 05/10/23 10:07 KW Desktop 05/10/23 10:18 KW 05/10/23 10:07 - Today's Visit Information Type of service Initial Visit Arrival Mode Ambulatory, Walker Accompanied by friend- Teresita Patient Identification Verified (Name & Yes ) Height and Weight Height 5 ft 1 in Weight 247 kg Weight in Pounds 544.5 lbs Weight Measurement Method Estimated by Patient Body Mass Index (BMI) 102.8 BMI Classification Obese BSA - Adrian 2.89 Vital Signs Temperature (97.8 F-99.1 F) 97.4 F L Temperature Source Temporal Pulse Rate (60-100) 85 Pulse Location Monitor Respiratory Rate (12-18) 18 Respiratory rate source Observation Oxygen Delivery Method Room Air Blood Pressure (90/60-120/80) 190/75 H Blood Pressure Mean 113 Source Monitor Position Sitting Blood Pressure Location Right Forearm History Since Last Visit- (Skip if this is Patient's initial visit) Left Footwear Regular Shoe Right Footwear Regular Shoe Pain Scale: 0-10 Numeric Is Patient Pain Free? Yes WC - Nurse 1 - General Ulcer Measurement Start: 05/10/23 09:49 Freq: Status: Active Protocol: Activity Type Activity Date Activity User E-sign Co-sign Detail Recorded Client Recorded Date Recorded By Document 05/10/23 10:07 KW Desktop 05/10/23 10:18 KW 05/10/23 10:07 Wound Center Nurse 1 #3 RT MED ANKLE -Current Size (cm) - Length 0.4 -Current Size (cm) - Width 0.2 -Current Size (cm) - Depth 0.1 -Total Square Cm 0.08 -Date of Last Picture (Recall this 05/10/23 field) -Photo Taken Yes -Exudate Amt Large -Exudate Type Serosanguineous -Wound Margin Distinct, Outline Attached -Granulation Amt None Present (0 %) -Necrosis Amt Large (67-100%) -Necrotic Tissue Type Adherent Slough -Texture (Jagruti-wound Skin Appearance) Assessed -Moisture (Jagruti-wound Skin Appearance) Assessed, Weeping -Color (Jagruti-wound Skin Appearance) Assessed, Erythema -Temperature (Jagruti-wound Skin No Abnormality Appearance) (Pt Warm) -Tenderness on Palpation (Jagruti-wound No Skin Appearance) -Ulcer Cleansing Rinsed/ Irrigated with Saline -Foul Odor after Cleansing No -Anesthetic Used 5% Lidocaine Gel Right Calf (cm) 35 Right Ankle (cm) 21 Assessment/Plan Assessment/Plan (1) Non-pressure chronic ulcer of right ankle with fat layer exposed: CODE(S): L97.312 - Non-pressure chronic ulcer of right ankle with fat layer exposed PLAN: Exam performed Recent arterial studies within normal limits Patient has venous insufficiency with chronic venous venous leg ulceration rightlower extremity Right lower extremity wound was excisionally debrided down to including level ofsubcutaneous tissue of all nonviable tissue using a throat 3 mm dermal curette. Patient tolerated procedure well. Topical anesthesia used. Pre and postdebridement measurements documented nursing notes. Hemostasis obtained withlight compression. Today wound was dressed with Adaptic Aquacel Ag, Unna boot. Patient will follow- up on Tuesday for a nurse visit dressing change. Patient will follow-up in 1 week for continued care. Postdebridement the wound was flushed and cultured patient was given a prescription for doxycycline. (2) Venous insufficiency (chronic) (peripheral): CODE(S): I87.2 - Venous insufficiency (chronic) (peripheral) 05/10/23 1037 <Electronically signed by Nicky Cavanaugh DPM> Cosigner Signature (if applicable): CC: ~ Signed [facility] Work Phone: 1(462) 914-983710-24-2023 History of Present illness Narrative* Nunu Oneal MD - 12/07/2022 11:03 AM EDT Laura Stark is a 67 year old female who presents for problem visit for c/o vaginal discharge and irritation. . HPI: 67 YOF had vulvar biopsy last year. Has some burning and irritaiton. Wears a pad constantly. Takes lasix. Used steroid ointment w/ little relief. Clobetasol caused irritation/burning. When uses skin protectant gets UTIs. 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 Not a surgical candidate she has been told. 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 DVT (deep venous thrombosis) (HCC) 1995 Rt lower leg Embolism and thrombosis of unspecified site 10/28/2005 PE (pulmonary embolism) Recurrent ventral incisional hernia 08/03/2012 Sepsis (HCC) Unspecified asthma(493.90) Unspecified essential hypertension PAST SURGICAL HISTORY Procedure Laterality Date APPENDECTOMY DELIVERY ONLY , low cervical COLONOSCOPY FLX DX W/COLLJ SPEC WHEN PFRMD 01-09-13 DEBRIDEMENT SUBCUTANEOUS TISSUE 20 SQ CM/< 02-10-12 ENTEROLSS FRING INTSTINAL ADHESION SPX 03-24-12 FILTER PLACEMENT (VENA CAVA) 01-15-13 FNA WITH IMAGING 05/26/11 U/S FNA left thyroid nodule IMPLANT MESH OPN HERNIA RPR/DEBRIDEMENT CLOSURE 01-31-12 INSJ NON-TUNNELED CENTRAL VENOUS CATH AGE 5 YR/> 03-24-13 LAPS RPR RECURRENT INCAL HRNA NCRC8/STRANGULATED 01-18-13 PAST SURGICAL HISTORY OF 2003 right ankle surgery-fusion PAST SURGICAL HISTORY OF 2009 right shoulder partial replacement RPR 1ST INCAL/VNT HERNIA INCARCERATED 01-31-12 TOTAL ABDOMINAL HYSTERECT W/WO RMVL TUBE OVARY 1996 Hysterectomy, RONN TRANSCATH RETRIEVAL,PERCUT 02-21-13 FILTER REMOVAL FAMILY HISTORY Problem Relation Age of Onset Diabetes Mother Hypertension Mother Ischemic Heart Disease Mother Cancer Father skin Hypertension Father Diabetes Sister Hypertension Sister Diabetes Sister Hypertension Sister Blood Clots Sister Diabetes Sister Hypertension Sister Cancer Maternal Grandmother colon Hypertension Maternal Grandfather Ischemic Heart Disease Maternal Grandfather Diabetes Maternal Grandfather Cancer Paternal Grandfather leukemia Colon Cancer Maternal Uncle Colon Cancer Maternal Uncle Social History Tobacco Use Smoking status: Former Packs/day: 1.00 Years: 20.00 Additional pack years: 0.00 Total pack years: 20.00 Types: Cigarettes Quit date: 10/29/1995 Years since quittin.1 Smokeless tobacco: Never Vaping Use Vaping Use: Never used Substance Use Topics Alcohol use: No Drug use: No Current Outpatient Medications Medication Sig ondansetron orally disintegrating (ZOFRAN ODT) 4 mg disintegrating tablet atorvastatin (LIPITOR) 10 mg tablet famotidine (PEPCID) 40 mg tablet Take 40 mg by mouth. latanoprost (XALATAN) 0.005 % ophthalmic solution clobetasol (TEMOVATE) 0.05 % cream Apply to affected area 2x/day for 2 weeks, then 1x/day for a week. levothyroxine (SYNTHROID) 25 mcg tablet esomeprazole (NEXIUM) 40 mg capsule Take 40 mg by mouth DAILY (6 AM). Cholecalciferol, Vitamin D3, 50 mcg (2,000 unit) cap Take by mouth. acetaminophen (TYLENOL) 500 mg tablet Take 1,000 mg by mouth twice daily. fluticasone-salmeterol HFA (ADVAIR) 230-21 mcg/actuation inhaler Inhale 2 Puffs as instructed twicedaily. furosemide (LASIX) 20 mg tablet Take 20 mg by mouth twice daily. Pt is taking 30 mg daily potassium chloride ER (K-DUR, KLOR-CON) 20 mEq tablet Take 20 mEq by mouth twice daily. L. acidophilus/Bifid. animalis (DAILY PROBIOTIC ORAL) Take by mouth. diltiazem CD (CARDIZEM CD) 180 mg 24 hr capsule Take 2 capsules by mouth once daily. apixaban (ELIQUIS) 5 mg tab tab(s) Take 1 tablet by mouth twice daily. predniSONE (DELTASONE) 10 mg tablet Take 1 tablet by mouth once daily. 40MG PO QD FOR 3DAYS, THEN 30MG PO QD FOR 3DAYS, THEN 20MG PO QD FOR 3DAYS AND THEN 10MG PO QD FOR 3DAYS, THEN 5MG DAILY. flecainide (TAMBOCOR) 100 mg tablet Take 1 tablet by mouth every 12 hours. albuterol (PROVENTIL) 2.5 mg /3 mL (0.083 %) nebulizer solution Use 2.5 mg via nebulizer every 4 hours as needed. melatonin 3 mg Take 3 mg by mouth daily at bedtime. montelukast (SINGULAIR) 10 mg tablet Take 10 mg by mouth daily at bedtime. fluticasone (FLONASE) 50 mcg/actuation nasal spray Use 1 [place] in each nostril twice daily. acetaminophen 650 mg CR tablet Take 1,300 mg by mouth at bedtime as needed. albuterol HFA (PROVENTIL HFA, VENTOLIN HFA) 90 mcg/actuation inhaler Inhale 2 Puffs as instructed every 4 hours as needed. docosahexaenoic acid/epa (FISH OIL ORAL) Take by mouth. (Patient not taking: Reported on 10/29/2022) L.acidoph-B.lactis-B.longum (FLORAJEN3) 460 mg (7.5-6- 1.5 bill. cell) cap Take 1 capsule by mouth once daily. (Patient not taking: Reported on 10/29/2022) fluticasone-salmeterol (ADVAIR) 500-50 mcg/dose dsdv Inhale 1 Puff as instructed twice daily. (Patient not taking: Reported on 12/07/2022) No current facility-administered medications for this visit. Allergies As of Date: 12/07/2022 Allergen Noted Reaction CLINDAMYCIN 10/14/2005 Hives MACRODANTIN [NITROFURANTOIN MACRO*10/14/2005 Other: See Comments PERCOCET [OXYCODONE-ACETAMINOPHEN]10/14/2005 Other: See Comments SULFA (SULFONAMIDE ANTIBIOTICS) 10/14/2005 Rash and Itching ZENICEF [OTHER] 10/14/2005 Rash and Itching ZITHROMAX [AZITHROMYCIN] 10/14/2005 Rash and Itching Fully Assessed 12/07/2022 Allergies and current medication updated:Yes EXAM: BP 130/82 Wt 248 lb (112.5kg) GENERAL: pleasant, female in no apparent distress PELVIC: some erythema of vulva, small fissure on mons in midline, no purulent drainage, no surrounding erythema. Diffuse mild erythema w/o lesions or hyperpigmentation of labia minora and introitus. Atrophic flattened vaginal epithelium w/ minimal discharge. No lesions or malodor ASSESSMENT AND PLAN: Encounter Diagnosis ICD-10-CM 1. Vaginal discharge N89.8 vulvar irritation- likely from cdhronic irritation from pads and incontinence. Reveiwed bx results.Yeast swab colected. D/w her mainstay will likely be skin protectatns, steroid 1-2 times a week maxdue to risk of thinning skin. OBestity w/ BMI 46- d/w her option of weight management referal as is having many medical comorbitites and obesity likely contributing. Will consider and d/w her PCP Nunu Oneal MD [facility] Miscellaneous Notes* Telephone Encounter - Candelaria Toro LPN - 11/01/2022 10:41 AM EDT Pt notified and voiced understanding with no further questions. Candelaria Toro LPN * Telephone Encounter - Cassie Shetty APRN.JOEY - 11/01/2022 7:14 AM EDT Please let the patient know that her vaginal cultures are negative for any infection -to continue use with the clobetasol cream. Cassie Shetty APRN.CNP documented in [facility]The [facility] History of Present illness Narrative* Cassie Shetty APRN.CNP - 10/29/2022 8:36 AM EDT Laura Stark is a 67 year old female who presents for vaginal pruritis, burning, and dischargefor 1 month(s). Vaginal discharge: scant amount and yellow. Itching: YES Dyspareunia: N/A Fever/chills: No Abdominal pain: No Bladder: Negative for dysuria or frequency Bowel: No blood in stool, pain with BM, tarry stool, persistent diarrhea or constipation Are you currently taking any medications to treat vaginitis: Yes, OTC creams Do you use feminine sprays, douches or deodorants: No Past medical, surgical, social history, medications and allergies reviewed and updated. OBJECTIVE: Wt 248 lb 3.2 oz (112.6kg) GENERAL: Well developed, well nourished in no apparent distress PELVIC: external genitalia normal, normal Bartholin's glands, urethra, Harwood's glands, no vulvar lesions, physiologic discharge present, normal appearing perineal body and perianal region ASSESSMENT/PLAN: 1. Vulvar irritation - ICD9: 624.8, ICD10: N90.89 - JOHN PAUL/TRICHOMONAS NAAT - BACTERIAL VAGINOSIS NAAT Clobetasol cream ordered Will notify patient of test results. Cassie Shetty APRN.CNP Medical Decision Making: Problems: Low: Acute, uncomplicated illness or injury Data: Unique test(s) ordered: 2 Risk: Low: Low risk from testing/treatment Moderate: Drug management Medical Decision Making Level: 3 - Low documented in [facility] encounterThe [facility] NoteHNO ID: [id number] Author: Keyon Meade DPM Service: ? Author Type: Physician Type: Progress Notes Filed: 11/05/2022 11:18 AM Note Text: Chief Complaint: Chronic L ankle pain, referral from Dr. Cavanaugh HPI: This 67 year old female with PMH indicated below presents with chief complaint of of chronic LEFT ankle pain. Patient states she was referred here by Dr. Cavanaugh for further evaluation/possible surgical intervention. 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 Patient has been ambulating in a CAM boot the last several weeks but states the pain is worsening to the point it is becoming more difficult to walk. 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 Patient states she has asthma and took long courses of steroids when she was younger. Has also been hospitalized multiple times requiring high doses of steroids for treatment. Patient has limited motion of the L ankle and ambulates with a walker at baseline. PCP: Moreno Donnelly MD: PAST MEDICAL HISTORY Diagnosis Date Abnormal mammogram, unspecified 12/06/2007 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 DVT (deep venous thrombosis) ([facility]) 1996 Rt lower leg Embolism and thrombosis of unspecified site 10/28/2005 PE (pulmonary embolism) Recurrent ventral incisional hernia 08/03/2012 Sepsis ([facility]) Unspecified asthma(493.90) Unspecified essential hypertension Current Outpatient Medications Medication Sig levothyroxine (SYNTHROID) 25 mcg tablet esomeprazole (NEXIUM) 40 mg capsule Take 40 mg by mouth DAILY (6 AM). Cholecalciferol, Vitamin D3, 50 mcg (2,000 unit) cap Take by mouth. acetaminophen (TYLENOL) 500 mg tablet Take 1,000 mg by mouth twice daily. fluticasone-salmeterol HFA (ADVAIR) 230-21 mcg/actuation inhaler Inhale 2 Puffs as instructed twice daily. furosemide (LASIX) 20 mg tablet Take 20 mg by mouth twice daily. Pt is taking 30 mg daily L. acidophilus/Bifid. animalis (DAILY PROBIOTIC ORAL) Take by mouth. diltiazem CD (CARDIZEM CD) 180 mg 24 hr capsule Take 2 capsules by mouth once daily. apixaban (ELIQUIS) 5 mg tab tab(s) Take 1 tablet by mouth twice daily. flecainide (TAMBOCOR) 100 mg tablet Take 1 tablet by mouth every 12 hours. fluticasone-salmeterol (ADVAIR) 500-50 mcg/dose dsdv Inhale 1 Puff as instructed twice daily. ipratropium-albuterol (DUONEB) 0.5 mg-3 mg(2.5 mg base)/3 mL nebu Inhale 3 mL as instructed every 4 hours as needed. albuterol (PROVENTIL) 2.5 mg /3 mL (0.083 %) nebulizer solution Use 2.5 mg via nebulizer every 4 hours as needed. montelukast (SINGULAIR) 10 mg tablet Take 10 mg by mouth daily at bedtime. albuterol HFA (PROVENTIL HFA, VENTOLIN HFA) 90 mcg/actuation inhaler Inhale 2 Puffs as instructed every 4 hours as needed. triamcinolone (KENALOG) 0.025 % cream Apply to affected area twice daily. fluconazole (DIFLUCAN) 150 mg tablet Take one tablet by mouth once. Then repeat every 3 days for 3 doses. docosahexaenoic acid/epa (FISH OIL ORAL) Take by mouth. phenazopyridine (PYRIDIUM) 200 mg tablet Take 1 tablet by mouth three times daily as needed. L.acidoph-B.lactis-B.longum (FLORAJEN3) 460 mg (7.5-6- 1.5 bill. cell) cap Take 1 capsule by mouth once daily. lisinopril (ZESTRIL, PRINIVIL) 5 mg tablet Take 5 mg by mouth once daily. potassium chloride ER (K-DUR, KLOR-CON) 20 mEq tablet Take 20 mEq by mouth twice daily. metHIMazole (TAPAZOLE) 5 mg tablet Take 1 tablet by mouth once daily. insulin lispro (HUMALOG) 100 unit/mL injection Inject 5 Units subcutaneously w MEALS. insulin lispro (HUMALOG) 100 unit/mL injection Inject 1-10 Units subcutaneously w MEALS. ADMINISTER CORRECTIONAL INSULIN REGARDLESS OF MEAL OR NUTRITION INTAKE Scale 2 If Blood Glucose (mg/dL) is: Less than 110 Give 0 units 111-150 Give 0 units 151-200 Give 2 units 201-250 Give 4 units 251-300 Give 6 units 301-350 Give 8 units 351-400 Give 10 units Greater than 400 Give 10 units and Notify Provider . insulin NPH human (NOVOLIN N, HUMULIN N) injection Inject 10 Units subcutaneously daily at bedtime. insulin NPH human (NOVOLIN N, HUMULIN N) injection Inject 14 Units subcutaneously daily with breakfast. HYDROcodone-acetaminophen (NORCO) 5-325 mg per tablet Take 1-2 tablets by mouth every 6 hours as needed. clotrimazole (LOTRIMIN, CLOTRIM) 1 % cream Apply 1 application to affected area twice daily. predniSONE (DELTASONE) 10 mg tablet Take 1 tablet by mouth once daily. 40MG PO QD FOR 3DAYS, THEN 30MG PO QD FOR 3DAYS, THEN 20MG PO QD FOR 3DAYS AND THEN 10MG PO QD FOR 3DAYS, THEN 5MG DAILY. spironolactone (ALDACTONE) 25 mg tablet Take 25 mg by mouth twice daily. magnesium oxide (MAG-OX) 400 mg tablet Take 400 mg by mouth once daily. melatonin 3 mg Take 3 mg by mouth daily at bedtime. omeprazole (PRILOSEC) 40 mg capsule Take 40 mg by mouth once daily. fluticasone (FLONASE) 50 mcg/actuation nasal spray Use 1 [place] in e (more content not included)...[facility]08-03-2023 History of Present illness Narrative* HalinaKeyon ordoñez Hardik, ROBERT - 09/16/2022 8:22 PM EDT Chief Complaint: Chronic L ankle pain, referral from Dr. Cavanaugh HPI: This 67 year old female with PMH indicated below presents with chief complaint of of chronic LEFT ankle pain. Patient states she was referred here by Dr. Cavanaugh for further evaluation/possible surgical intervention. 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 Patient has been ambulating in a CAM boot the last several weeks but states the pain is worsening to the point it is becoming more difficult to walk. 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 Patient states she has asthma and took long courses of steroids when she was younger. Has also been hospitalized multiple times requiring high doses of steroids for treatment. Patient has limited motion of the L ankle and ambulates with a walker at baseline. PCP: Moreno Donnelly MD: PAST MEDICAL HISTORY Diagnosis Date Abnormal mammogram, unspecified 12/06/2007 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 DVT (deep venous thrombosis) ([facility]) 1996 Rt lower leg Embolism and thrombosis of unspecified site 10/28/2005 PE (pulmonary embolism) Recurrent ventral incisional hernia 08/03/2012 Sepsis ([facility]) Unspecified asthma(493.90) Unspecified essential hypertension Current Outpatient Medications Medication Sig levothyroxine (SYNTHROID) 25 mcg tablet esomeprazole (NEXIUM) 40 mg capsule Take 40 mg by mouth DAILY (6 AM). Cholecalciferol, Vitamin D3, 50 mcg (2,000 unit) cap Take by mouth. acetaminophen (TYLENOL) 500 mg tablet Take 1,000 mg by mouth twice daily. fluticasone-salmeterol HFA (ADVAIR) 230-21 mcg/actuation inhaler Inhale 2 Puffs as instructed twicedaily. furosemide (LASIX) 20 mg tablet Take 20 mg by mouth twice daily. Pt is taking 30 mg daily L. acidophilus/Bifid. animalis (DAILY PROBIOTIC ORAL) Take by mouth. diltiazem CD (CARDIZEM CD) 180 mg 24 hr capsule Take 2 capsules by mouth once daily. apixaban (ELIQUIS) 5 mg tab tab(s) Take 1 tablet by mouth twice daily. flecainide (TAMBOCOR) 100 mg tablet Take 1 tablet by mouth every 12 hours. fluticasone-salmeterol (ADVAIR) 500-50 mcg/dose dsdv Inhale 1 Puff as instructed twice daily. ipratropium-albuterol (DUONEB) 0.5 mg-3 mg(2.5 mg base)/3 mL nebu Inhale 3 mL as instructed every 4hours as needed. albuterol (PROVENTIL) 2.5 mg /3 mL (0.083 %) nebulizer solution Use 2.5 mg via nebulizer every 4 hours as needed. montelukast (SINGULAIR) 10 mg tablet Take 10 mg by mouth daily at bedtime. albuterol HFA (PROVENTIL HFA, VENTOLIN HFA) 90 mcg/actuation inhaler Inhale 2 Puffs as instructed every 4 hours as needed. triamcinolone (KENALOG) 0.025 % cream Apply to affected area twice daily. fluconazole (DIFLUCAN) 150 mg tablet Take one tablet by mouth once. Then repeat every 3 days for 3 doses. docosahexaenoic acid/epa (FISH OIL ORAL) Take by mouth. phenazopyridine (PYRIDIUM) 200 mg tablet Take 1 tablet by mouth three times daily as needed. L.acidoph-B.lactis-B.longum (FLORAJEN3) 460 mg (7.5-6- 1.5 bill. cell) cap Take 1 capsule by mouth once daily. lisinopril (ZESTRIL, PRINIVIL) 5 mg tablet Take 5 mg by mouth once daily. potassium chloride ER (K-DUR, KLOR-CON) 20 mEq tablet Take 20 mEq by mouth twice daily. metHIMazole (TAPAZOLE) 5 mg tablet Take 1 tablet by mouth once daily. insulin lispro (HUMALOG) 100 unit/mL injection Inject 5 Units subcutaneously w MEALS. insulin lispro (HUMALOG) 100 unit/mL injection Inject 1-10 Units subcutaneously w MEALS. ADMINISTERCORRECTIONAL INSULIN REGARDLESS OF MEAL OR NUTRITION INTAKE Scale 2 If Blood Glucose (mg/dL) is: Less than 110 Give 0 units 111-150 Give 0 units 151-200 Give 2 units 201-250 Give 4 units 251-300 Give 6 units 301-350 Give 8 units 351-400 Give 10 units Greater than 400 Give 10 units and Notify Provider . insulin NPH human (NOVOLIN N, HUMULIN N) injection Inject 10 Units subcutaneously daily at bedtime. insulin NPH human (NOVOLIN N, HUMULIN N) injection Inject 14 Units subcutaneously daily with breakfast. HYDROcodone-acetaminophen (NORCO) 5-325 mg per tablet Take 1-2 tablets by mouth every 6 hours as needed. clotrimazole (LOTRIMIN, CLOTRIM) 1 % cream Apply 1 application to affected area twice daily. predniSONE (DELTASONE) 10 mg tablet Take 1 tablet by mouth once daily. 40MG PO QD FOR 3DAYS, THEN 30MG PO QD FOR 3DAYS, THEN 20MG PO QD FOR 3DAYS AND THEN 10MG PO QD FOR 3DAYS, THEN 5MG DAILY. spironolactone (ALDACTONE) 25 mg tablet Take 25 mg by mouth twice daily. magnesium oxide (MAG-OX) 400 mg tablet Take 400 mg by mouth once daily. melatonin 3 mg Take 3 mg by mouth daily at bedtime. omeprazole (PRILOSEC) 40 mg capsule Take 40 mg by mouth once daily. fluticasone (FLONASE) 50 mcg/actuation nasal spray Use 1 [place] in each nostril twice daily. acetaminophen 650 mg CR tablet Take 1,300 mg by mouth at bedtime as needed. No current facility-administered medications for this visit. ALLERGIES Allergen Reactions Clindamycin Hives Macrodantin [Nitrof* Other: See Comments Off-balance Percocet [Oxycodone* Other: See Comments Nausea Sulfa (Sulfonamide * Rash, Itching localized rash and itching all over Zenicef [Other] Rash, Itching itching in mouth; localized rash and itching all over Zithromax [Azithrom* Rash, Itching localized rash and itching all over PAST SURGICAL HISTORY Procedure Laterality Date APPENDECTOMY DELIVERY ONLY , low cervical COLONOSCOPY FLX DX W/COLLJ SPEC WHEN PFRMD 01-09-13 DEBRIDEMENT SUBCUTANEOUS TISSUE 20 SQ CM/< 02-10-12 ENTEROLSS FRING INTSTINAL ADHESION SPX 03-24-12 FILTER PLACEMENT (VENA CAVA) 01-15-13 FNA WITH IMAGING 05/26/11 U/S FNA left thyroid nodule IMPLANT MESH OPN HERNIA RPR/DEBRIDEMENT CLOSURE 01-31-12 INSJ NON-TUNNELED CENTRAL VENOUS CATH AGE 5 YR/> 03-24-12 LAPS RPR RECURRENT INCAL HRNA NCRC8/STRANGULATED 01-18-13 PAST SURGICAL HISTORY OF 2003 right ankle surgery-fusion PAST SURGICAL HISTORY OF 2009 right shoulder partial replacement RPR 1ST INCAL/VNT HERNIA INCARCERATED 01-31-12 TOTAL ABDOMINAL HYSTERECT W/WO RMVL TUBE OVARY 1996 Hysterectomy, RONN TRANSCATH RETRIEVAL,PERCUT 02-21-13 FILTER REMOVAL FAMILY HISTORY Problem Relation Age of Onset Diabetes Mother Hypertension Mother Ischemic Heart Disease Mother Cancer Father skin Hypertension Father Diabetes Sister Hypertension Sister Diabetes Sister Hypertension Sister Blood Clots Sister Diabetes Sister Hypertension Sister Cancer Maternal Grandmother colon Hypertension Maternal Grandfather Ischemic Heart Disease Maternal Grandfather Diabetes Maternal Grandfather Cancer Paternal Grandfather leukemia Colon Cancer Maternal Uncle Colon Cancer Maternal Uncle Social History Tobacco Use Smoking status: Former Packs/day: 1.00 Years: 20.00 Total pack years: 20.00 Types: Cigarettes Quit date: 10/29/1995 Years since quittin.9 Smokeless tobacco: Never Vaping Use Vaping Use: Never used Substance Use Topics Alcohol use: No Drug use: No REVIEW OF SYSTEMS See MA note MSK: + as noted in HPI. Physical Exam: Patient is alert and oriented x 3 in NAD. Patient is a 67 year old female who appears well developed, well nourished, and with good attention to hygiene and body habitus. Resp 16 Ht 154.9 cm (5' 1) Wt 107.5 kg (237 lb) BMI 44.78 kg/m Vascular: DP and PT pulses are palpable. CFT less than 3 seconds to all digits bilateral. Skin temperature is warm to warm from proximal to distal bilateral. Hair growth is noted. No edema noted. Mild varicosities noted. Neuro: Light touch intact bilateral. Protective sensation intact at all pedal sites via [place] Thiago 5.07 monofilament bilateral. Proprioception intact at the hallux bilateral. Derm: Skin texture and turgor within normal limits. Toenails normal in appearance. Web spaces 1-4 clean, dry, intact b/l. No rashes, subcutaneous nodules, or open lesions noted. No hyperkeratotic tissue. Musculoskeletal/Orthopaedic: General foot morphology: Decreased medial longitudinal arch 4/5 muscle strength Dorsiflexion, Plantarflexion, Inversion, Eversion, Left ROM of the 1st MTPJ is reduced without pain or crepitus. ROM of the MTJ/STJ is reduced without painor crepitus. Ankle joint ROM is decreased with pain present during ROM. The L ankle joint is stiff with limited range of motion in the sagittal and frontal plains. Pain with palpation is most significant to the anterior ankle joint. Severe HAV deformity to the L foot with plantar medial prominence of the midfoot and digital contractures. No skin breakdown present to the plantar foot. MRI from OSH reviewed: shows AVN of the talus and distal tibia ASSESSMENT: This 67 year old female patient presents today with chronic LEFT ankle pain and MRI findings showing AVN of the talus and distal tibia. Plan: A comprehensive history and physical examination were performed. The patient was educated on clinical and radiographic findings, diagnosis, and treatment plans. Patient states she understands all that has been explained and all questions were answered to her apparent satisfaction. Discussed with patient that AVN is a very complex diagnosis and I would recommend exhausting all conservative measures before resulting to surgical intervention. MRI was discussed and reviewed. All concerns were addressed. - Etiology and treatment options were discussed with the patient. - Discussed conservative vs surgical treatment options. - Recommend patellar tendon weight bearing brace (PTWB) - Jacket Micro Devicess - Continue use of CAM boot until brace is obtained - Follow up 4 weeks after receiving brace Total patient care time w/ pt was at least 45 minutes w/ at least 50% of the time spent reviewing the results of the recent imaging including (MRI,CT,EMG/NCV) counseling the pt on treatment options and coordinating their care. Clementina Hare DPM PGY-3 I personally saw and evaluated the patient. I reviewed the resident's note. I agree with the resident's assessment and plan unless otherwise noted. Keyon Meade DPM, FACFAS documented in this encounterThe [facility]08-03-[facility]23 Instructions* Patient Instructions* Clementina Hare DPM - 09/16/2022 11:12 AM EDT Recommend patellar tendon weight-bearing brace (PTWB) -Jacket Micro Devicess ([place]) Make appointment by telephone. Handout dispensed. Wear walking boot in mean time until brace is completed Follow up when brace is made. documented in this encounterThe [facility]12-14-[facility]22 History of Present illness Narrative* Lima Garcia Mammo Tech - 01/27/2022 11:10 AM EST Radiology Service Progress Note PATIENT NAME: Laura Stark DATE OF SERVICE: January 27, 2022 TIME: 11:08 AM PATIENT IDENTITY VERIFICATION COMPLETED USING TWO (2) IDENTIFIERS: Name and Date of confirmedby patient verbally. FALL SCREENING: Has the patient had 2 falls in the last year or 1 fall with injury or currently using an Ambulatory Assistive Device (Walker, Cane, Wheelchair, Crutches, etc.)? No PATIENT GENDER DATA: Female. status: : No status: NO. PATIENT RELEVANT IMPLANT DATA REVIEWED: Not Applicable RADIOLOGY DEPARTMENT: Mammography PERIPHERAL IV DATA: Not applicable SIGNED BY: Shanika Cohen January 27, 2022 11:08 AM documented in this encounterThe [facility]12-08-2022 Miscellaneous Notes* Telephone Encounter - Candelaria Toro LPN - 01/21/2022 9:47 AM EST Spoke with pt and given below suggestions and pt stated that she was feeling better and she will just keep her follow up with Linda. Canedlaria Toro LPN * Telephone Encounter - Abril Powers MD - 01/21/2022 9:34 AM EST Reasonable to continue care per SRAVAN recommendations at time of her visit. If she develops fevers, chills, malaise, drainage, increase pain, swelling, or increased redness of site she needs to come in for eval. Can offer sooner appointment if she desires for an exam * Telephone Encounter - Rody Chávez RN - 01/21/2022 8:24 AM EST This note was sent to SRAVAN on Tuesday and never addressed. SRAVAN is now not in office the rest of the week. I spoke to patient this morning. Said the vulvar biopsy site is still about the same as it was onTuesday and not any worse. She is still taking Keflex. She has visit with SRAVAN on 01/27 and she is fine waiting until then to have it checked unless provider second facing baster thinks otherwise. Rody Chávez RN * Telephone Encounter - Rody Chávez RN - 01/18/2022 10:17 AM EST Patient calling with vulvar biopsy update. States it has not gotten any better, but it isn't worse either. She has about 5 days left of Keflex and continues to use the Kenalog cream. She uses jagruti bottle to keep it clean and keeps it dry as much as possible throughout the day. Asking if there is anything else she can do to help. Aware SRAVAN back in office tomorrow. Next visit with SRAVAN is 01/27/22. Please advise. Rody Chávez RN documented in this encounterThe [facility]11-29-2022 History of Present illness Narrative* Linda Restrepo APRN.CNM - 01/12/2022 11:09 AM EST Laura Stark is a 67 year old female who presents for problem visit after biopsy. HPI: Here today with complaint after vulvar biopsy completed on 01/08/22. Complaint of bleeding at biopsy site and pain. Feeling better today and no bleeding. Kenalog cream helped with itching and much improved. 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 Comments: Sexual Activity: Not Asked; No partner data on record Contraception: No contraception data on record PAST MEDICAL HISTORY Diagnosis Date Abnormal mammogram, unspecified 12/06/2007 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 DVT (deep venous thrombosis) ([facility]) 1995 Rt lower leg Embolism and thrombosis of unspecified site 10/28/2005 PE (pulmonary embolism) Recurrent ventral incisional hernia 08/03/2012 Sepsis ([facility]) Unspecified asthma(493.90) Unspecified essential hypertension PAST SURGICAL HISTORY Procedure Laterality Date APPENDECTOMY DELIVERY ONLY , low cervical COLONOSCOPY FLX DX W/COLLJ SPEC WHEN PFRMD 01-09-13 DEBRIDEMENT SUBCUTANEOUS TISSUE 20 SQ CM/< 02-10-12 ENTEROLSS FRING INTSTINAL ADHESION SPX 03-24-12 FILTER PLACEMENT (VENA CAVA) 01-15-13 FNA WITH IMAGING 05/26/11 U/S FNA left thyroid nodule IMPLANT MESH OPN HERNIA RPR/DEBRIDEMENT CLOSURE 01-31-12 INSJ NON-TUNNELED CENTRAL VENOUS CATH AGE 5 YR/> 03-24-13 LAPS RPR RECURRENT INCAL HRNA NCRC8/STRANGULATED 01-18-13 PAST SURGICAL HISTORY OF 2003 right ankle surgery-fusion PAST SURGICAL HISTORY OF 2009 right shoulder partial replacement RPR 1ST INCAL/VNT HERNIA INCARCERATED 01-31-12 TOTAL ABDOMINAL HYSTERECT W/WO RMVL TUBE OVARY 1996 Hysterectomy, RONN TRANSCATH RETRIEVAL,PERCUT 02-21-13 FILTER REMOVAL FAMILY HISTORY Problem Relation Age of Onset Cancer Father skin Hypertension Father Cancer Maternal Grandmother colon Cancer Paternal Grandfather leukemia Diabetes Mother Hypertension Mother Ischemic Heart Disease Mother Hypertension Maternal Grandfather Ischemic Heart Disease Maternal Grandfather Diabetes Maternal Grandfather Diabetes Sister Hypertension Sister Diabetes Sister Hypertension Sister Blood Clots Sister Diabetes Sister Hypertension Sister Social History Tobacco Use Smoking status: Former Packs/day: 1.00 Years: 20.00 Pack years: 20.00 Types: Cigarettes Quit date: 10/29/1995 Years since quittin.2 Smokeless tobacco: Never Substance Use Topics Alcohol use: No Drug use: No Current Outpatient Medications Medication Sig triamcinolone (KENALOG) 0.025 % cream Apply to affected area twice daily. levothyroxine (SYNTHROID) 25 mcg tablet docosahexaenoic acid/epa (FISH OIL ORAL) Take by mouth. esomeprazole (NEXIUM) 40 mg capsule Take 40 mg by mouth DAILY (6 AM). phenazopyridine (PYRIDIUM) 200 mg tablet Take 1 tablet by mouth three times daily as needed. L.acidoph-B.lactis-B.longum (FLORAJEN3) 460 mg (7.5-6- 1.5 bill. cell) cap Take 1 capsule by mouth once daily. lisinopril (ZESTRIL, PRINIVIL) 5 mg tablet Take 5 mg by mouth once daily. Cholecalciferol, Vitamin D3, 50 mcg (2,000 unit) cap Take by mouth. acetaminophen (TYLENOL) 500 mg tablet Take 1,000 mg by mouth twice daily. fluticasone-salmeterol HFA (ADVAIR) 230-21 mcg/actuation inhaler Inhale 2 Puffs as instructed twicedaily. furosemide (LASIX) 20 mg tablet Take 20 mg by mouth twice daily. Pt is taking 30 mg daily potassium chloride ER (K-DUR, KLOR-CON) 20 mEq tablet Take 20 mEq by mouth twice daily. L. acidophilus/Bifid. animalis (DAILY PROBIOTIC ORAL) Take by mouth. diltiazem CD (CARDIZEM CD) 180 mg 24 hr capsule Take 2 capsules by mouth once daily. apixaban (ELIQUIS) 5 mg tab tab(s) Take 1 tablet by mouth twice daily. insulin lispro (HUMALOG) 100 unit/mL injection Inject 1-10 Units subcutaneously w MEALS. ADMINISTERCORRECTIONAL INSULIN REGARDLESS OF MEAL OR NUTRITION INTAKE Scale 2 If Blood Glucose (mg/dL) is: Less than 110 Give 0 units 111-150 Give 0 units 151-200 Give 2 units 201-250 Give 4 units 251-300 Give 6 units 301-350 Give 8 units 351-400 Give 10 units Greater than 400 Give 10 units and Notify Provider . flecainide (TAMBOCOR) 100 mg tablet Take 1 tablet by mouth every 12 hours. fluticasone-salmeterol (ADVAIR) 500-50 mcg/dose dsdv Inhale 1 Puff as instructed twice daily. ipratropium-albuterol (DUONEB) 0.5 mg-3 mg(2.5 mg base)/3 mL nebu Inhale 3 mL as instructed every 4hours as needed. albuterol (PROVENTIL) 2.5 mg /3 mL (0.083 %) nebulizer solution Use 2.5 mg via nebulizer every 4 hours as needed. spironolactone (ALDACTONE) 25 mg tablet Take 25 mg by mouth twice daily. magnesium oxide (MAG-OX) 400 mg tablet Take 400 mg by mouth once daily. melatonin 3 mg Take 3 mg by mouth daily at bedtime. omeprazole (PRILOSEC) 40 mg capsule Take 40 mg by mouth once daily. montelukast (SINGULAIR) 10 mg tablet Take 10 mg by mouth daily at bedtime. fluticasone (FLONASE) 50 mcg/actuation nasal spray Use 1 [place] in each nostril twice daily. acetaminophen 650 mg CR tablet Take 1,300 mg by mouth at bedtime as needed. albuterol HFA (PROVENTIL HFA, VENTOLIN HFA) 90 mcg/actuation inhaler Inhale 2 Puffs as instructed every 4 hours as needed. fluconazole (DIFLUCAN) 150 mg tablet Take one tablet by mouth once. Then repeat every 3 days for 3 doses. (Patient not taking: Reported on 01/08/2022) metHIMazole (TAPAZOLE) 5 mg tablet Take 1 tablet by mouth once daily. (Patient not taking: Reportedon 01/23/2018 ) insulin lispro (HUMALOG) 100 unit/mL injection Inject 5 Units subcutaneously w MEALS. (Patient not taking: Reported on 01/23/2018 ) insulin NPH human (NOVOLIN N, HUMULIN N) injection Inject 10 Units subcutaneously daily at bedtime.(Patient not taking: Reported on 01/23/2018 ) insulin NPH human (NOVOLIN N, HUMULIN N) injection Inject 14 Units subcutaneously daily with breakfast. (Patient not taking: Reported on 01/23/2018 ) HYDROcodone-acetaminophen (NORCO) 5-325 mg per tablet Take 1-2 tablets by mouth every 6 hours as needed. (Patient not taking: Reported on 01/23/2018 ) clotrimazole (LOTRIMIN, CLOTRIM) 1 % cream Apply 1 application to affected area twice daily. (Patient not taking: Reported on 07/03/2019 ) predniSONE (DELTASONE) 10 mg tablet Take 1 tablet by mouth once daily. 40MG PO QD FOR 3DAYS, THEN 30MG PO QD FOR 3DAYS, THEN 20MG PO QD FOR 3DAYS AND THEN 10MG PO QD FOR 3DAYS, THEN 5MG DAILY. (Patient not taking: Reported on 12/23/2021) No current facility-administered medications for this visit. Allergies As of Date: 01/12/2022 Allergen Noted Reaction CLINDAMYCIN 10/14/2005 Hives MACRODANTIN [NITROFURANTOIN MACRO*10/14/2005 Other: See Comments PERCOCET [OXYCODONE-ACETAMINOPHEN]10/14/2005 Other: See Comments SULFA (SULFONAMIDE ANTIBIOTICS) 10/14/2005 Rash and Itching ZENICEF [OTHER] 10/14/2005 Rash and Itching ZITHROMAX [AZITHROMYCIN] 10/14/2005 Rash and Itching Fully Assessed 01/12/2022 REVIEW OF SYSTEMS Abdomen: No bloating, early satiety, indigestion, or increased flatulence. No abdominal pain, nausea, vomiting, diarrhea, or constipation. Bladder: No dysuria, gross hematuria, urinary frequency, urinary urgency, or incontinence. Breast: No breast lumps, nipple d/c, overlying skin changes, redness or skin retraction. Expanded ROS: N/A Allergies and current medication updated:Yes EXAM: BP 132/80 Wt 237 lb (107.5kg) GENERAL: pleasant, female in no apparent distress HEENT: Normocephalic and atraumatic NECK: Supple and full range of motion PELVIC: normal Bartholin's glands, urethra, Harwood's glands,normal appearing perineal body and perianal region. Right side of vulva, labia majora biopsy site without bleeding. Small area of erythema and edges of biopsy site slightly yellow, no drainage. BIMANUAL: deferred NEURO: alert and oriented x3,exam grossly non-focal ASSESSMENT AND PLAN: 1. Pruritus of vulva - ICD9: 698.1, ICD10: L29.2 -Much improvement with Kenalog cream. Decreased pruritus. -No active signs of infection but slight erythema, will treat with Keflex 500mg PO QID x 10 days Linda Restrepo APRN.CNM documented in this encounterThe [facility]11-28-[facility]22 Miscellaneous Notes* Telephone Encounter - Rody Chávez RN - 01/11/2022 2:53 PM EST Patient notified and scheduled. Rody Chávez RN * Telephone Encounter - Rody Chávez RN - 01/11/2022 12:15 PM EST Have tried calling multiple times and phone only rings busy. Will try again later this afternoon. Rody Chávez RN * Telephone Encounter - Linda Restrepo APRN.CNM - 01/11/2022 11:55 AM EST If patient is ok to see me tomorrow please add her on. Thank you, Linda Restrepo APRN.CNM * Telephone Encounter - Elisa Murray RN - 01/11/2022 8:13 AM EST Patient had vulvar biopsy on Tuesday. Had bleeding over the weekend. Changing pad every 2 hours had spotting like a light period. Now darker red in color and decreased bleeding. Has big lump like aspencil eraser at area that was biopsied. Having pain that has not decreased. Rates the pain a 4 on the pain scale that is constant. On Eloquis.Was taking Tylenol with no relief. Switched to Ibuprofen3 times a day with no relief. States she started having diarhhea this weekend , so trying to keep area clean.Denies fever or odor. Discussed how to use ice pack, avoid any clothes rubbing against area. Watch for signs of infection-fever, increased swelling or pain. Patient wasn't expecting pain and bleeding to last this long-states she will be understanding and wait it out if this is normal. . Please advise. [facility] in [facility] History of Present illness Narrative* Linda Restrepo APRN.CNM - 01/08/2022 8:10 AM EST Home Health Aid offered: Patient declines. Laura Stark is a 66 year old female who presents today for a vulvar biopsy. Indication: persistent pruritis. Used temovate and caused irritation. Once stopped no further issues. Using hydrocortisone with some relief. UNIVERSAL PROTOCOL / SAFETY CHECKLIST Procedure to be Performed:Vulvar Biopsy Sign In: A Moment of CARE was completed. Personnel directly involved with the procedure wore the appropriate PPE (Personal Protective Equipment). Special equipment: TUNG Patient/Surrogate Stated/Verified: PATIENT VERIFIED(optional for EMERGENT procedures): Patient name, Date of , Relevant allergies, and The intended procedure Time Out Communication: Intended patient and procedure match the source documents. Consent documented and matches the intended procedure. Relevant labs, photos, and/or imaging studies have been reviewed. Correct side/site marked and visible. Medications required for procedure verified. No fire risk assessment and interventions applicable. No implant(s) inserted. Sign Out: SIGN OUT (optional for EMERGENT procedures): All specimen containers correctly labeled. All instruments, equipment, possible retained foreign bodies accounted for. Post-procedure follow-up management communicated and Plan of Care Visit completed when applicable. Earnestine Hollins AWNING ERECTOR PROCEDURE NOTE: GROSS LESIONS: No BIOPSY: Area was cleansed with betadine and anesthetized with 2mL 1% lidocaine with 1:100,000 epi. 3mm Tung punch used to biopsy region. HEMOSTASIS: Obtained with silver nitrate ASSESSMENT: 1. Vulvar itching - ICD9: 698.1, ICD10: L29.2 (primary diagnosis) - SURGICAL PATHOLOGY PLAN: Specimens labeled and sent to Pathology. Will notify patient of results in 1-2 weeks. Follow up in 4 weeks to discuss results. Post-procedure instructions reviewed and written material given to the patient. Mammogram scheduled and Annual exam. Will give Kenalog cream ( requested instead of ointment) low-mid potency. Reacted to Temovate. Linda Restrepo APRN.CNM documented in this encounterThe [facility]11[facility] Miscellaneous Notes* Telephone Encounter - Thierno Lara MD - 12/29/2021 12:01 PM EST No other recommendations at this time Thierno Lara MD * Telephone Encounter - Rdoy Chávez RN - 12/29/2021 11:33 AM EST Patient notified. States her symptoms have improved some since stopping clobetasol. Thinks it was areaction to that medication. Now feels almost the same as when she saw SRAVAN last week. Wants to proceed with vulvar biopsy now for when SRAVAN returns. She is scheduled for 01/08/22 with SRAVAN. Will forward to so she is aware. Any further recommendations prior to biopsy? Please file order so we can attach to appointment too. Rody Chávez RN * Telephone Encounter - Thierno Lara MD - 12/29/2021 11:21 AM EST Please schedule with for evaluation & possible biopsy this afternoon. Thierno Lara MD * Telephone Encounter - Nisha Barnett RN - 12/29/2021 8:29 AM EST Not addressed by second facing baster provider yesterday. Please review and advise. Thank you. Nisha Barnett RN * Telephone Encounter - Rody Chávez RN - 12/28/2021 9:12 AM EST Last saw SRAVAN 12/23 for vulvar dermatitis. She was given 3 doses of diflucan (last dose is due tomorrow) and clobetasol ointment. States since she started clobetasol it has progressively gotten worse and is now more sore, open and bleeding in spots. She stopped clobetasol over the weekend then becauseof that and restarted OTC hydrocortisone like she previously was. Asking what she should do next. She was to use clobetasol BID for 4 weeks then once a day for 4 weeks then every other day for 2 weeks and if no improvement after 4 weeks would recommend vulvar biopsy at that time. Please advise in SRAVAN's absence. Rody Chávez RN documented in this encounterThe [facility]11-[facility] Miscellaneous Notes* Telephone Encounter - Rody Chávez RN - 12/24/2021 11:33 AM EST Patient notified. Rody Chávez RN * Telephone Encounter - Candelaria Toro LPN - 12/24/2021 10:21 AM EST Left message asking pt to call office for further instructions. Candelaria Toro LPN * Telephone Encounter - Linda Restrepo APRN.CNM - 12/24/2021 10:07 AM EST Please notify patient results negative. Please continue with plan as discussed. She doesn't have mychart. Thank you, Linda Restrepo APRN.CNM documented in this encounterThe [facility]11-[facility] Miscellaneous Notes* Addendum Note - Linda Restrepo APRN.CNM - 12/23/2021 4:16 PM ESTAddended by: LINDA RESTREPO on: 12/23/2021 04:16 PM Modules accepted: Orders documented in this [facility]11-09-2022 Instructions* Patient Instructions* Linda Restrepo APRN.CNM - 12/23/2021 11:05 AM EST Topical steroid twice a day for 4 weeks, then daily for 2 weeks, then every other day for 2 weeks. Then can use weekly if need or hydrocortisone. documented in this encounterThe [facility]11[facility] History of Present illness Narrative* Linda Restrepo APRN.CNM - 12/23/2021 10:45 AM EST Home Health Aid offered: Patient declines. Laura Stark is a 66 year old female who presents for problem visit . HPI: Hip replacement in june, many antibiotics. Has used Monistat OTC. Tried OTC hydrocortisone 1% for itching and burning. Wears pad due to lasix and leakage. Has used A&D. Using Poise pads. Symptoms are itching, burning on outside and in the front where clitorius is. Boths sides of labia.Nothing internal. This has been since the end of June. Not sexually active. Postmenopausal: Yes since age 1996 HRT use: Yes, for less than 5 years after hysterectomy. Had DVT and instructed to stop. Last Pap: 04/06/2013 normal Hysterectomy due to endometriosis. 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 Comments: Sexual Activity: Not Asked; No partner data on record Contraception: No contraception data on record PAST MEDICAL HISTORY Diagnosis Date Abnormal mammogram, unspecified 12/06/2007 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 DVT (deep venous thrombosis) (HCC) 1995 Rt lower leg Embolism and thrombosis of unspecified site 10/28/2005 PE (pulmonary embolism) Recurrent ventral incisional hernia 08/03/2012 Sepsis (HCC) Unspecified asthma(493.90) Unspecified essential hypertension PAST SURGICAL HISTORY Procedure Laterality Date APPENDECTOMY DELIVERY ONLY , low cervical COLONOSCOPY FLX DX W/COLLJ SPEC WHEN PFRMD 01-09-13 DEBRIDEMENT SUBCUTANEOUS TISSUE 20 SQ CM/< 02-10-12 ENTEROLSS FRING INTSTINAL ADHESION SPX 03-24-12 FILTER PLACEMENT (VENA CAVA) 01-15-13 FNA WITH IMAGING 05/26/11 U/S FNA left thyroid nodule IMPLANT MESH OPN HERNIA RPR/DEBRIDEMENT CLOSURE 01-31-12 INSJ NON-TUNNELED CENTRAL VENOUS CATH AGE 5 YR/> 03-24-12 LAPS RPR RECURRENT INCAL HRNA NCRC8/STRANGULATED 01-18-13 PAST SURGICAL HISTORY OF 2003 right ankle surgery-fusion PAST SURGICAL HISTORY OF 2009 right shoulder partial replacement RPR 1ST INCAL/VNT HERNIA INCARCERATED 01-31-12 TOTAL ABDOMINAL HYSTERECT W/WO RMVL TUBE OVARY 1996 Hysterectomy, RONN TRANSCATH RETRIEVAL,PERCUT 02-21-13 FILTER REMOVAL FAMILY HISTORY Problem Relation Age of Onset Cancer Father skin Hypertension Father Cancer Maternal Grandmother colon Cancer Paternal Grandfather leukemia Diabetes Mother Hypertension Mother Ischemic Heart Disease Mother Hypertension Maternal Grandfather Ischemic Heart Disease Maternal Grandfather Diabetes Maternal Grandfather Diabetes Sister Hypertension Sister Diabetes Sister Hypertension Sister Blood Clots Sister Diabetes Sister Hypertension Sister Social History Tobacco Use Smoking status: Former Packs/day: 1.00 Years: 20.00 Pack years: 20.00 Types: Cigarettes Quit date: 10/29/1995 Years since quittin.1 Smokeless tobacco: Never Substance Use Topics Alcohol use: No Drug use: No Current Outpatient Medications Medication Sig levothyroxine (SYNTHROID) 25 mcg tablet docosahexaenoic acid/epa (FISH OIL ORAL) Take by mouth. esomeprazole (NEXIUM) 40 mg capsule Take 40 mg by mouth DAILY (6 AM). phenazopyridine (PYRIDIUM) 200 mg tablet Take 1 tablet by mouth three times daily as needed. LTayloracidlilly-B.lactis-B.longum (FLORAJEN3) 460 mg (7.5-6- 1.5 bill. cell) cap Take 1 capsule by mouth once daily. lisinopril (ZESTRIL, PRINIVIL) 5 mg tablet Take 5 mg by mouth once daily. Cholecalciferol, Vitamin D3, (VITAMIN D-3) 50 mcg (2,000 unit) cap Take by mouth. acetaminophen (TYLENOL) 500 mg tablet Take 1,000 mg by mouth twice daily. fluticasone-salmeterol HFA (ADVAIR) 230-21 mcg/actuation inhaler Inhale 2 Puffs as instructed twicedaily. furosemide (LASIX) 20 mg tablet Take 20 mg by mouth twice daily. Pt is taking 30 mg daily potassium chloride ER (K-DUR, KLOR-CON) 20 mEq tablet Take 20 mEq by mouth twice daily. L. acidophilus/Bifid. animalis (DAILY PROBIOTIC ORAL) Take by mouth. metHIMazole (TAPAZOLE) 5 mg tablet Take 1 tablet by mouth once daily. (Patient not taking: Reportedon 01/23/2018 ) diltiazem CD (CARDIZEM CD) 180 mg 24 hr capsule Take 2 capsules by mouth once daily. apixaban (ELIQUIS) 5 mg tab tab(s) Take 1 tablet by mouth twice daily. insulin lispro (HUMALOG) 100 unit/mL injection Inject 5 Units subcutaneously w MEALS. (Patient not taking: Reported on 01/23/2018 ) insulin lispro (HUMALOG) 100 unit/mL injection Inject 1-10 Units subcutaneously w MEALS. ADMINISTERCORRECTIONAL INSULIN REGARDLESS OF MEAL OR NUTRITION INTAKE Scale 2 If Blood Glucose (mg/dL) is: Less than 110 Give 0 units 111-150 Give 0 units 151-200 Give 2 units 201-250 Give 4 units 251-300 Give 6 units 301-350 Give 8 units 351-400 Give 10 units Greater than 400 Give 10 units and Notify Provider . insulin NPH human (NOVOLIN N, HUMULIN N) injection Inject 10 Units subcutaneously daily at bedtime.(Patient not taking: Reported on 01/23/2018 ) insulin NPH human (NOVOLIN N, HUMULIN N) injection Inject 14 Units subcutaneously daily with breakfast. (Patient not taking: Reported on 01/23/2018 ) HYDROcodone-acetaminophen (NORCO) 5-325 mg per tablet Take 1-2 tablets by mouth every 6 hours as needed. (Patient not taking: Reported on 01/23/2018 ) clotrimazole (LOTRIMIN, CLOTRIM) 1 % cream Apply 1 application to affected area twice daily. (Patient not taking: Reported on 07/03/2019 ) predniSONE (DELTASONE) 10 mg tablet Take 1 tablet by mouth once daily. 40MG PO QD FOR 3DAYS, THEN 30MG PO QD FOR 3DAYS, THEN 20MG PO QD FOR 3DAYS AND THEN 10MG PO QD FOR 3DAYS, THEN 5MG DAILY. (Patient not taking: Reported on 01/23/2018 ) flecainide (TAMBOCOR) 100 mg tablet Take 1 tablet by mouth every 12 hours. fluticasone-salmeterol (ADVAIR DISKUS) 500-50 mcg/dose dsdv Inhale 1 Puff as instructed twice daily. ipratropium-albuterol (DUONEB) 0.5 mg-3 mg(2.5 mg base)/3 mL nebu Inhale 3 mL as instructed every 4hours as needed. albuterol (PROVENTIL) 2.5 mg /3 mL (0.083 %) nebulizer solution Use 2.5 mg via nebulizer every 4 hours as needed. spironolactone (ALDACTONE) 25 mg tablet Take 25 mg by mouth twice daily. magnesium oxide (MAG-OX) 400 mg tablet Take 400 mg by mouth once daily. melatonin 3 mg Take 3 mg by mouth daily at bedtime. Omeprazole (PRILOSEC) 40 mg capsule Take 40 mg by mouth once daily. montelukast (SINGULAIR) 10 mg tablet Take 10 mg by mouth daily at bedtime. fluticasone (FLONASE) 50 mcg/actuation nasal spray Use 1 [place] in each nostril twice daily. acetaminophen (TYLENOL ARTHRITIS PAIN) 650 mg CR tablet Take 1,300 mg by mouth at bedtime as needed. albuterol HFA (PROAIR HFA) 90 mcg/actuation inhaler Inhale 2 Puffs as instructed every 4 hours as needed. No current facility-administered medications for this visit. Allergies As of Date: 12/23/2021 Allergen Noted Reaction CLINDAMYCIN 10/14/2005 Hives MACRODANTIN [NITROFURANTOIN MACRO*10/14/2005 Other: See Comments PERCOCET [OXYCODONE-ACETAMINOPHEN]10/14/2005 Other: See Comments SULFA (SULFONAMIDE ANTIBIOTICS) 10/14/2005 Rash and Itching ZENICEF [OTHER] 10/14/2005 Rash and Itching ZITHROMAX [AZITHROMYCIN] 10/14/2005 Rash and Itching Fully Assessed 09/12/2021 REVIEW OF SYSTEMS Abdomen: No bloating, early satiety, indigestion, or increased flatulence. No abdominal pain, nausea, vomiting, diarrhea, or constipation. Bladder: No dysuria, gross hematuria, urinary frequency, urinary urgency, or incontinence. Breast: No breast lumps, nipple d/c, overlying skin changes, redness or skin retraction. Expanded ROS: N/A Allergies and current medication updated:Yes EXAM: BP 144/78 Wt 235 lb 12.8 oz (107 kg) BMI 44.55 kg/m GENERAL: pleasant, female in no apparent distress HEENT: Normocephalic and atraumatic NECK: Supple and full range of motion DERMATOLOGY: Normal and without lesions CHEST: Normal inspiratory effort ABDOMEN: soft, non-tender, and no masses PELVIC: external genitalia normal, normal Bartholin's glands, urethra, Harwood's glands, physiologic discharge present, normal appearing perineal body and perianal region. NEURO: alert and oriented x3,exam grossly non-focal EXTREMITIES: normal ASSESSMENT AND PLAN: 1. Vulvar dermatitis - ICD9: 692.9, ICD10: L30.9 -Discussed with patient no visible signs of external discoloration or other pathology. Reviewed probable vulvar dermatitis at this time and irritation. Discussed recommend treating with Diflucan 150 mg p.o. once every 3 days x 3 doses. Discussed trying Temovate topical ointment twice a day for 4 weeks then once a day for 4 weeks then every other day for 2 weeks then as needed. Discussed with patient if no improvement in 4 weeks and still continued vulvar itching and burning would recommend vulvar biopsy. Patient agreeable to plan. Discussed vulvar hygiene. Linda Restrepo APRN.CNM documented in this encounterThe [facility] History of Present illness Narrative* Merrill Chaves MD - 09/12/2021 11:26 AM EDT Patient presents with: Fever: neck pain, JONES, chills x1 day HPI: Feeling sick for since yesterday. Positive symptoms: Fever, neck pain, Chills, Body Aches, Malaise, Fatigue, Headache, Rhinorrhea, Nausea, some cough Negative symptoms: Sore throat, Vomiting, Diarrhea, Shortness of breath, chest pain OTC: Ibuprofen, Tylenol On eliquis Had hip replaced in June with post op pneumonia. Moderna x 4, home COVID negative this morning. PAST MEDICAL HISTORY Diagnosis Date Abnormal mammogram, unspecified 12/06/2007 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 DVT (deep venous thrombosis) ([facility]) 1995 Rt lower leg Embolism and thrombosis of unspecified site 10/28/2005 PE (pulmonary embolism) Recurrent ventral incisional hernia 08/03/2012 Sepsis ([facility]) Unspecified asthma(493.90) Unspecified essential hypertension MEDICATIONS: Current Outpatient Medications Medication Sig levothyroxine (SYNTHROID) 25 mcg tablet docosahexaenoic acid/epa (FISH OIL ORAL) Take by mouth. esomeprazole (NEXIUM) 40 mg capsule Take 40 mg by mouth DAILY (6 AM). phenazopyridine (PYRIDIUM) 200 mg tablet Take 1 tablet by mouth three times daily as needed. L.acidoph-B.lactis-B.longum (FLORAJEN3) 460 mg (7.5-6- 1.5 bill. cell) cap Take 1 capsule by mouth once daily. lisinopril (ZESTRIL, PRINIVIL) 5 mg tablet Take 5 mg by mouth once daily. Cholecalciferol, Vitamin D3, (VITAMIN D-3) 50 mcg (2,000 unit) cap Take by mouth. acetaminophen (TYLENOL) 500 mg tablet Take 1,000 mg by mouth twice daily. fluticasone-salmeterol HFA (ADVAIR) 230-21 mcg/actuation inhaler Inhale 2 Puffs as instructed twicedaily. furosemide (LASIX) 20 mg tablet Take 20 mg by mouth twice daily. Pt is taking 30 mg daily potassium chloride ER (K-DUR, KLOR-CON) 20 mEq tablet Take 20 mEq by mouth twice daily. L. acidophilus/Bifid. animalis (DAILY PROBIOTIC ORAL) Take by mouth. metHIMazole (TAPAZOLE) 5 mg tablet Take 1 tablet by mouth once daily. (Patient not taking: Reportedon 01/23/2018 ) diltiazem CD (CARDIZEM CD) 180 mg 24 hr capsule Take 2 capsules by mouth once daily. apixaban (ELIQUIS) 5 mg tab tab(s) Take 1 tablet by mouth twice daily. insulin lispro (HUMALOG) 100 unit/mL injection Inject 5 Units subcutaneously w MEALS. (Patient not taking: Reported on 01/23/2018 ) insulin lispro (HUMALOG) 100 unit/mL injection Inject 1-10 Units subcutaneously w MEALS. ADMINISTERCORRECTIONAL INSULIN REGARDLESS OF MEAL OR NUTRITION INTAKE Scale 2 If Blood Glucose (mg/dL) is: Less than 110 Give 0 units 111-150 Give 0 units 151-200 Give 2 units 201-250 Give 4 units 251-300 Give 6 units 301-350 Give 8 units 351-400 Give 10 units Greater than 400 Give 10 units and Notify Provider . insulin NPH human (NOVOLIN N, HUMULIN N) injection Inject 10 Units subcutaneously daily at bedtime.(Patient not taking: Reported on 01/23/2018 ) insulin NPH human (NOVOLIN N, HUMULIN N) injection Inject 14 Units subcutaneously daily with breakfast. (Patient not taking: Reported on 01/23/2018 ) HYDROcodone-acetaminophen (NORCO) 5-325 mg per tablet Take 1-2 tablets by mouth every 6 hours as needed. (Patient not taking: Reported on 01/23/2018 ) clotrimazole (LOTRIMIN, CLOTRIM) 1 % cream Apply 1 application to affected area twice daily. (Patient not taking: Reported on 07/03/2019 ) predniSONE (DELTASONE) 10 mg tablet Take 1 tablet by mouth once daily. 40MG PO QD FOR 3DAYS, THEN 30MG PO QD FOR 3DAYS, THEN 20MG PO QD FOR 3DAYS AND THEN 10MG PO QD FOR 3DAYS, THEN 5MG DAILY. (Patient not taking: Reported on 01/23/2018 ) flecainide (TAMBOCOR) 100 mg tablet Take 1 tablet by mouth every 12 hours. fluticasone-salmeterol (ADVAIR DISKUS) 500-50 mcg/dose dsdv Inhale 1 Puff as instructed twice daily. ipratropium-albuterol (DUONEB) 0.5 mg-3 mg(2.5 mg base)/3 mL nebu Inhale 3 mL as instructed every 4hours as needed. albuterol (PROVENTIL) 2.5 mg /3 mL (0.083 %) nebulizer solution Use 2.5 mg via nebulizer every 4 hours as needed. spironolactone (ALDACTONE) 25 mg tablet Take 25 mg by mouth twice daily. magnesium oxide (MAG-OX) 400 mg tablet Take 400 mg by mouth once daily. melatonin 3 mg Take 3 mg by mouth daily at bedtime. Omeprazole (PRILOSEC) 40 mg capsule Take 40 mg by mouth once daily. montelukast (SINGULAIR) 10 mg tablet Take 10 mg by mouth daily at bedtime. fluticasone (FLONASE) 50 mcg/actuation nasal spray Use 1 [place] in each nostril twice daily. acetaminophen (TYLENOL ARTHRITIS PAIN) 650 mg CR tablet Take 1,300 mg by mouth at bedtime as needed. albuterol HFA (PROAIR HFA) 90 mcg/actuation inhaler Inhale 2 Puffs as instructed every 4 hours as needed. No current facility-administered medications for this visit. ALLERGIES: ALLERGIES Allergen Reactions Clindamycin Hives Macrodantin [Nitrof* Other: See Comments Off-balance Percocet [Oxycodone* Other: See Comments Nausea Sulfa (Sulfonamide * Rash, Itching localized rash and itching all over Zenicef [Other] Rash, Itching itching in mouth; localized rash and itching all over Zithromax [Azithrom* Rash, Itching localized rash and itching all over VITALS: BP 126/86 Pulse 103 Temp (!) 38.9 C (102 F) Resp 20 Wt 107 kg (236 lb) SpO2 98% BMI 44.59 kg/m PHYSICAL EXAM: GEN: uncomfortable and ill appearing; accompanied by her special needs daughter HEENT: PERRL, EOMI, conjunctiva clear Ears: canals clear. TMs without erythema, bulge, or effusion Sinuses: painful head Throat: moist mucous membranes, no erythema, no exudate Neck: supple but painful flexion/extension, uncomfortable rotation, no thyromegaly, no lymphadenopathy HEART: regular rate and rhythm, no murmurs LUNGS: clear to auscultation, no wheezes or crackles, no increased WOB ASSESSMENT/PLAN: 1. Headache, unspecified headache type - ICD9: 784.0, ICD10: R51.9 (primary diagnosis) 2. Neck pain - ICD9: 723.1, ICD10: M54.2 3. Fever, unspecified fever cause - ICD9: 780.60, ICD10: R50.9 Differential includes COVID, other viral illness, meningitis, discitis. Referred to the ER for further evaluation. She will drive herself to [facility]. Notified by ER Passport. Merrill Chaves MD documented in this encounterThe [facility]06[facility] History of Past illness Narrative* Problem Noted Date Resolved Date Recurrent ventral incisional hernia 08/03/2012 12/23/2016 PE (pulmonary embolism) 04/28/2012 12/24/19 17 Wound infection 02/16/2012 12/23/2016 Abnormal mammogram, unspecified 12/06/2007 12/23/2016 Embolism and thrombosis of unspecified site 10/1512/23/2016 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 12/23/2016 documented as of this encounter (statuses as of 09/12/2021) [facility] Narrative* Problem Noted Date Resolved Date Recurrent ventral incisional hernia 08/03/2012 12/23/2016 PE (pulmonary embolism) 04/28/2012 12/24/19 17 Wound infection 02/16/2012 12/23/2016 Abnormal mammogram, unspecified 12/06/2007 12/23/2016 Embolism and thrombosis of unspecified site 10/1512/23/2016 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 12/23/2016 documented as of this encounter (statuses as of 12/23/2021) [facility] Narrative* Problem Noted Date Resolved Date Recurrent ventral incisional hernia 08/03/2012 12/23/2016 PE (pulmonary embolism) 04/28/2012 12/24/19 17 Wound infection 02/16/2012 12/23/2016 Abnormal mammogram, unspecified 12/06/2007 12/23/2016 Embolism and thrombosis of unspecified site 10/1512/23/2016 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 12/23/2016 documented as of this encounter (statuses as of 12/24/2021) [facility] Narrative* Problem Noted Date Resolved Date Recurrent ventral incisional hernia 08/03/2012 12/23/2016 PE (pulmonary embolism) 04/28/2012 12/24/19 17 Wound infection 02/16/2012 12/23/2016 Abnormal mammogram, unspecified 12/06/2007 12/23/2016 Embolism and thrombosis of unspecified site 10/1512/23/2016 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 12/23/2016 documented as of this encounter (statuses as of 12/29/2021) [facility] Narrative* Problem Noted Date Resolved Date Recurrent ventral incisional hernia 08/03/2012 12/23/2016 PE (pulmonary embolism) 04/28/2012 12/24/19 17 Wound infection 02/16/2012 12/23/2016 Abnormal mammogram, unspecified 12/06/2007 12/23/2016 Embolism and thrombosis of unspecified site 10/1512/23/2016 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 12/23/2016 documented as of this encounter (statuses as of 01/08/2022) [facility] Narrative* Problem Noted Date Resolved Date Recurrent ventral incisional hernia 08/03/2012 12/23/2016 PE (pulmonary embolism) 04/28/2012 12/24/19 17 Wound infection 02/16/2012 12/23/2016 Abnormal mammogram, unspecified 12/06/2007 12/23/2016 Embolism and thrombosis of unspecified site 10/1512/23/2016 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 12/23/2016 documented as of this encounter (statuses as of 01/11/2022) [facility] Narrative* Problem Noted Date Resolved Date Recurrent ventral incisional hernia 08/03/2012 12/23/2016 PE (pulmonary embolism) 04/28/2012 12/24/19 17 Wound infection 02/16/2012 12/23/2016 Abnormal mammogram, unspecified 12/06/2007 12/23/2016 Embolism and thrombosis of unspecified site 10/1512/23/2016 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 12/23/2016 documented as of this encounter (statuses as of 01/12/2022) [facility] Narrative* Problem Noted Date Resolved Date Recurrent ventral incisional hernia 08/03/2012 12/23/2016 PE (pulmonary embolism) 04/28/2012 12/24/19 17 Wound infection 02/16/2012 12/23/2016 Abnormal mammogram, unspecified 12/06/2007 12/23/2016 Embolism and thrombosis of unspecified site 10/1512/23/2016 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 12/23/2016 documented as of this encounter (statuses as of 01/21/2022) [facility] History of Past illness Narrative* Problem Noted Date Diagnosed Date Resolved Date Recurrent ventral incisional hernia 08/03/2012 12/23/2016 PE (pulmonary embolism) 04/28/201210/2016 Wound infection 02/16/2012 12/23/2016 Abnormal mammogram, unspecified 12/06/2007 12/23/2016 Embolism and thrombosis of unspecified site 10/28/2005 12/23/2016 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 7 documented as of this encounter (statuses as of 10/03/2022) [facility] History of Past illness Narrative* Problem Noted Date Diagnosed Date Resolved Date Recurrent ventral incisional hernia 08/03/2012 12/23/2016 PE (pulmonary embolism) 04/28/201210/2016 Wound infection 02/16/2012 12/23/2016 Abnormal mammogram, unspecified 12/06/2007 12/23/2016 Embolism and thrombosis of unspecified site 10/28/2005 12/23/2016 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 7 documented as of this encounter (statuses as of 10/29/2022) [facility] History of Past illness Narrative* Problem Noted Date Diagnosed Date Resolved Date Recurrent ventral incisional hernia 08/03/2012 12/23/2016 PE (pulmonary embolism) 04/28/201210/2016 Wound infection 02/16/2012 12/23/2016 Abnormal mammogram, unspecified 12/06/2007 12/23/2016 Embolism and thrombosis of unspecified site 10/28/2005 12/23/2016 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 7 documented as of this encounter (statuses as of 11/01/2022) [facility] History of Past illness Narrative* Problem Noted Date Diagnosed Date Resolved Date Recurrent ventral incisional hernia 08/03/2012 12/23/2016 PE (pulmonary embolism) 04/28/201210/2016 Wound infection 02/16/2012 12/23/2016 Abnormal mammogram, unspecified 12/06/2007 12/23/2016 Embolism and thrombosis of unspecified site 10/28/2005 12/23/2016 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 7 documented as of this encounter (statuses as of 12/07/2022) [facility] History of Past illness Narrative* Problem Noted Date Diagnosed Date Resolved Date Recurrent ventral incisional hernia 08/03/2012 12/23/2016 PE (pulmonary embolism) 04/28/201210/2016 Wound infection 02/16/2012 12/23/2016 Abnormal mammogram, unspecified 12/06/2007 12/23/2016 Embolism and thrombosis of unspecified site 10/28/2005 12/23/2016 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 7 documented as of this encounter (statuses as of 12/19/2022) [facility] Diagnosis Onset Date Resolution Status Paroxysmal atrial fibrillation acute Preop cardiovascular exam ac [place] Benign essential HTN chronic Chronic diastolic heart failure chronic Hyperlipidemia chronic Asthma acute Lung nodule [facility] Work Phone: Evaluation note* Diagnosis Onset Date Resolution Status Paroxysmal atrial fibrillation acute Preop cardiovascular exam ac [place] Benign essential HTN chronic Chronic diastolic heart failure chronic Hyperlipidemia chronic Asthma acute Lung nodule chronic COPD with acute exacerbation acute COPD with acute exacerbation acute Cough acute Paroxysmal atrial fibrillation acute S/P hip replacement acute S/P total left hip arthroplasty acute Shortness of breath acute Diabetes mellitus chronic Hx pulmonary embolism chroni c Obesity [facility] Work Phone: Evaluation note* Diagnosis Onset Date Resolution Status Paroxysmal atrial fibrillation acute Preop cardiovascular exam ac [place] Benign essential HTN chronic Chronic diastolic heart failure chronic Hyperlipidemia chronic Asthma acute Lung nodule chronic Cough acute Paroxysmal atrial fibrillation acute S/P total left hip arthroplasty acute Shortness of breath acute Diabetes mellitus chronic Hx pulmonary embolism chroni c Obesity chronic Asthma acute Atrial fibrillation acute Bronchiectasis acute Debility acute Diabetes mellitus acute Heart failure with preserved ejection fraction acute Osteoarthritis of left hip a cute Pneumonia due to Pseudomonas acute Pulmonary embolism acute S/P total left hip arthroplasty acute Chronic kidney disease, stage 3a chronic Hypertension chronic [facility] Work Phone: Evaluation note* Diagnosis Onset Date Resolution Status Paroxysmal atrial fibrillation acute Preop cardiovascular exam ac [place] Benign essential HTN chronic Chronic diastolic heart failure chronic Hyperlipidemia chronic Asthma acute Lung nodule chronic Cough acute Paroxysmal atrial fibrillation acute S/P total left hip arthroplasty acute Shortness of breath acute Diabetes mellitus chronic Hx pulmonary embolism chroni c Obesity chronic Asthma acute Atrial fibrillation acute Bronchiectasis acute Debility acute Diabetes mellitus acute Heart failure with preserved ejection fraction acute Osteoarthritis of left hip a cute Pneumonia due to Pseudomonas acute Pulmonary embolism acute S/P total left hip arthroplasty acute Chronic kidney disease, stage 3a chronic Hypertension chronic Fever acute Pneumonia acute [facility] Work Phone: Evaluation note* Diagnosis Onset Date Resolution Status Paroxysmal atrial fibrillation acute Preop cardiovascular exam ac [place] Benign essential HTN chronic Chronic diastolic heart failure chronic Hyperlipidemia chronic Asthma acute Lung nodule chronic Cough acute Paroxysmal atrial fibrillation acute S/P total left hip arthroplasty acute Shortness of breath acute Diabetes mellitus chronic Hx pulmonary embolism chroni c Obesity chronic Asthma acute Atrial fibrillation acute Bronchiectasis acute Debility acute Diabetes mellitus acute Heart failure with preserved ejection fraction acute Osteoarthritis of left hip a cute Pneumonia due to Pseudomonas acute Pulmonary embolism acute S/P total left hip arthroplasty acute Chronic kidney disease, stage 3a chronic Hypertension chronic Fever acute Pneumonia acute Allergic rhinitis acute Asthma acute Atrial fibrillation acute Debility acute Gastroesophageal reflux disease acute Hyperlipidemia acute Hypokalemia acute Hypothyroidism acute Iron deficiency anemia acute Pseudomonas pneumonia acute Vitamin D deficiency acute Chronic diastolic congestive heart failure chronic [facility] Work Phone: Evaluation note* Diagnosis Onset Date Resolution Status Preop cardiovascular exam re solved S/P total left hip arthroplasty resolved Asthma acute Atrial fibrillation acute Bronchiectasis acute Debility acute Diabetes mellitus acute Heart failure with preserved ejection fraction acute Pulmonary embolism acute Chronic kidney disease, stage 3a chronic Hypertension chronic Osteoarthritis of left hip r esolved S/P total left hip arthroplasty resolved Fever resolved Pneumonia resolved Debility acute Pseudomonas pneumonia acute Allergic rhinitis chronic Asthma chronic Atrial fibrillation chronic Chronic diastolic congestive heart failure chronic Gastroesophageal reflux disease chronic Hyperlipidemia chronic Hypothyroidism chronic Vitamin D deficiency chronic Hypokalemia resolved [facility] Work Phone: Evaluation note* Diagnosis Onset Date Resolution Status S/P total left hip arthroplasty resolved Asthma acute Atrial fibrillation acute Bronchiectasis acute Debility acute Diabetes mellitus acute Heart failure with preserved ejection fraction acute Pulmonary embolism acute Chronic kidney disease, stage 3a chronic Hypertension chronic Osteoarthritis of left hip r esolved S/P total left hip arthroplasty resolved Fever resolved Pneumonia resolved Debility acute Pseudomonas pneumonia acute Hypokalemia resolved [facility] Work Phone: Evaluation note* Diagnosis Onset Date Resolution Status S/P total left hip arthroplasty resolved Asthma acute Atrial fibrillation acute Bronchiectasis acute Debility acute Diabetes mellitus acute Heart failure with preserved ejection fraction acute Pulmonary embolism acute Chronic kidney disease, stage 3a chronic Hypertension chronic Osteoarthritis of left hip r esolved S/P total left hip arthroplasty resolved Fever resolved Pneumonia resolved Debility acute Pseudomonas pneumonia acute Hypokalemia resolved Dehiscence of surgical wound acute Nonhealing surgical wound ac [place] Status post total hip replacement, left acute [facility] Work Phone: Evaluation note* Diagnosis Headache, unspecified headache type- Primary Neck pain Cervicalgia Fever, unspecified fever cause [facility] Diagnosis Vulvar dermatitis- Primary Other inflammatory disease of cervix, vagina and vulva Vulvar itching Pruritus of genital organs [facility] Diagnosis Vulvar dermatitis- Primary Other inflammatory disease of cervix, vagina and vulva Vulvar itching Pruritus of genital organs [facility] Diagnosis Vulvar itching- Primary Pruritus of genital organs Encounter for screening mammogram for malignant neoplasm of breast Other screening mammogram [facility] Diagnosis Pruritus of vulva- Primary Pruritus of genital organs [facility] Diagnosis Onset Date Resolution Status Heart failure with preserved ejection fraction acute Paroxysmal atrial fibrillation acute [facility] Work Phone: Evaluation note* Diagnosis Onset Date Resolution Status Asthma acute Daytime hypersomnia acute Morbid obesity acute [facility] Work Phone: Evaluation note* Diagnosis Onset Date Resolution Status Asthma acute Daytime hypersomnia acute Morbid obesity acute GAGAN (obstructive sleep apnea) acute Heart failure with preserved ejection fraction acute Hyperlipidemia acute Paroxysmal atrial fibrillation acute [facility] Work Phone: Evaluation note* Diagnosis Onset Date Resolution Status GAGAN (obstructive sleep apnea) acute Heart failure with preserved ejection fraction acute Hyperlipidemia acute Paroxysmal atrial fibrillation acute [facility] Work Phone: Evaluation noteNo assessment information available [facility] Work Phone: Evaluation note* Diagnosis Chronic pain of left ankle- Primary Avascular necrosis of bone of ankle (HCC) Avascular necrosis of left tibia (HCC) documented in this encounter [facility] note* Diagnosis Vulvar irritation- Primary Other specified noninflammatory disorder of vulva and perineum documented in this encounter [facility] note* Diagnosis Vaginal discharge- Primary Leukorrhea, not specified as infective Obesity, Class III, BMI >= 40 (morbid obesity) E66.01 Morbid obesity documented in this encounter [facility] note* Diagnosis Encounter for screening mammogram for malignant neoplasm of breast Other screening mammogram documented in this encounter [facility] note* Diagnosis Onset Date Resolution Status Heart failure with preserved ejection fraction acute Hyperlipidemia acute Paroxysmal atrial fibrillation acute Asthma chronic Bronchiectasis chronic Morbid obesity chronic GAGAN (obstructive sleep apnea) chronic GAGAN (obstructive sleep apnea) chronic [facility] Work Phone: Evaluation note* Diagnosis Onset Date Resolution Status Asthma chronic Bronchiectasis chronic Morbid obesity chronic GAGAN (obstructive sleep apnea) chronic GAGAN (obstructive sleep apnea) chronic [facility] Work Phone: Evaluation note* Diagnosis Onset Date Resolution Status GAGAN (obstructive sleep apnea) chronic 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 Venous insufficiency (chronic) (peripheral) chronic [facility] Work Phone: Evaluation note* Diagnosis Onset Date Resolution Status GAGAN (obstructive sleep apnea) chronic 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 Finish your Tamiflu. Continue the prednisone 40 mg a day for 7 more days starting tomorrow you received a dose of Solu-Medrol today through the IV. Follow-up with your doctor to ensure you are improving or return if feeling worse. Use your inhaler and nebulizer at home as needed.[facility] Work Phone: Hospital Discharge instructionsAdditional Instructions Please follow-up with Dr. Ambrocio tomorrow as scheduled. Use Zofran as needed to treat nausea. Push fluids at home. Continue take Tylenol as needed for fever. Continue with infusion. If you are not tolerating antibiotics and may need to switch to a different 1 but this might require increased frequency.[facility] Work Phone: Reason for referral (narrative)* Diagnostic Procedure Only (Routine) - Authorized Specialty Diagnoses / Procedures Referred By Leon briscoe Referred To Contact [facility] Diagnoses Encounter for screening mammogram for malignant neoplasm of breast Procedures SHANKAR SCREENING SCREENING MAMMOGRAPHY BI 2-VIEW BREAST INC Linda Sapp APRN.CNM [address] [place] [address] [facility] [address] [address] Referral ID Status Reason Start Date Expiration Date Visits Requested Visits Authorized [id number] Authorized Auto-Generat ed Referral 2 02/07/2023 1 1 [facility] for referral (narrative)* Diagnostic Procedure Only (Routine) - Closed Specialty Diagnoses / Procedures Referred By Leon briscoe Referred To Contact [facility] Diagnoses Encounter for screening mammogram for malignant neoplasm of breast Procedures SHANKAR SCREENING SCREENING MAMMOGRAPHY BI 2-VIEW BREAST INC Linda Sapp APRN.CNM [address] [place] [address] [facility] [address] [place] [address] Referral ID Status Reason Start Date Expiration Date V isits Requested Visits Authorized [id number] Closed Auto-Generate d Referral 01/08/2022 02/07/2023 1 1 [facility]No reason for referral information [facility]WSelect [facility]: Reason for visit Narrative* Diagnostic Procedure Only (Routine) - Closed Specialty Diagnoses / Procedures Referred By Contac t Referred To Contact [facility] Diagnoses Encounter for screening mammogram for malignant neoplasm of breast Procedures SHANKAR SCREENING SCREENING MAMMOGRAPHY BI 2-VIEW BREAST INC Linda Sapp APRN.CNM [address] [place] [address] [facility] [address] [place] [address] Referral ID Status Reason Start Date Expiration Date V isits Requested Visits Authorized [id number] Closed Auto-Generate d Referral 01/08/2022 02/07/2023 1 1 [facility] Summary Purpose Family History Relationship Condition Age at Onset Recorded Date/T steve mother Hypertension Unknown Diabetes mellitus Unknown Cardiac disease Unknown Pulmonary embolism Unknown father Peptic ulcer with perforation Unknown Respiratory failure Unknown sister Asthma Unknown Hypertension Unknown Advance Directives Advance Directive Response Recorded Date/ Time Name of Medical Power of Keyboard Teacher Juanita Petersen April 01, 2021 11:16am Advance Directives Yes March 8:55pm Living Will Yes May 12, 2021 4:00pm Power of Keyboard Teacher Yes May 12 4:00pm Advance Directive Response Recorded Date/ Time Name of Medical Power of Keyboard Teacher Juanita Petersen April 01, 2021 11:16am Name of Medical Power of Keyboard Teacher JUANITA May 12, 2021 4:00pm Advance Directives Yes March 8:55pm Living Will Yes June 24, 2021 3 :44pm Power of Keyboard Teacher Yes June 24, 2021 3:44pm Advance Directive Response Recorded Date/ Time Name of Medical Power of Keyboard Teacher Juanita Petersen April 01, 2021 11:16am Name of Medical Power of Keyboard Teacher JUANITA May 12, 2021 4:00pm Name of Medical Power of Keyboard Teacher Sister Juanita June 24, 2021 3:44pm Name of Medical Power of Keyboard Teacher Juanita Casarez , sister June 29, 2021 12:19pm Advance Directives Yes March 8:55pm Living Will Yes July 03, 2021 1 1:48pm Power of Keyboard Teacher Yes July 03, 2021 11:48pm Advance Directive Response Recorded Date/ Time Name of Medical Power of Keyboard Teacher Juanita Petersen April 01, 2021 11:16am Name of Medical Power of Keyboard Teacher JUANITA May 12, 2021 4:00pm Name of Medical Power of Keyboard Teacher Sister Juanita June 24, 2021 3:44pm Name of Medical Power of Keyboard Teacher Juanita Casarez , June 29, 2021 12:19pm Name of Medical Power of Keyboard Teacher Juanita Lala July 03, 2021 11:48pm Advance Directives Yes March 8:55pm Living Will Yes July 04, 2021 9 :57am Power of Keyboard Teacher Yes July 04, 2021 9:57am Advance Directive Response Recorded Date/ Time Name of Medical Power of Keyboard Teacher Juanita Petersen April 01, 2021 11:16am Name of Medical Power of Keyboard Teacher JUANITA May 12, 2021 4:00pm Name of Medical Power of Keyboard Teacher Sister Juanita June 24, 2021 3:44pm Name of Medical Power of Keyboard Teacher Juanita Casarez , sister June 29, 2021 12:19pm Name of Medical Power of Keyboard Teacher Juanita Lala July 03, 2021 11:48pm Name of Medical Power of Keyboard Teacher juanita, July 04, 2021 9:57am Advance Directives Yes March 8:55pm Living Will Yes July 06, 2021 4 :10pm Power of Keyboard Teacher Yes July 06, 2021 4:10pm Advance Directive Response Recorded Date/ Time Name of Medical Power of Keyboard Teacher Juanita Petersen April 01, 2021 11:16am Name of Medical Power of Keyboard Teacher JUANITA May 12, 2021 4:00pm Name of Medical Power of Keyboard Teacher Sister Juanita June 24, 2021 3:44pm Name of Medical Power of Keyboard Teacher Juanita Casarez , June 29, 2021 12:19pm Name of Medical Power of Keyboard Teacher Juanita Lala July 03, 2021 11:48pm Name of Medical Power of Keyboard Teacher sister alvarez July 04, 2021 9:57am Name of Medical Power of Keyboard Teacher Juanita Casarez July 06, 2021 4:10pm Advance Directives Yes March 8:55pm Living Will Yes July 06, 2021 4 :10pm Power of Keyboard Teacher Yes July 06, 2021 4:10pm Advance Directive Response Recorded Date/ Time Name of Medical Power of Keyboard Teacher JUANITA May 12, 2021 4:00pm Name of Medical Power of Keyboard Teacher Sister Juanita June 24, 2021 3:44pm Name of Medical Power of Keyboard Teacher Juanita Casarez , June 29, 2021 12:19pm Name of Medical Power of Keyboard Teacher Juanita Lala July 03, 2021 11:48pm Name of Medical Power of Keyboard Teacher sister alvarez July 04, 2021 9:57am Name of Medical Power of Keyboard Teacher Juanita Casarez July 06, 2021 4:10pm Advance Directives Yes March 8:55pm Living Will Yes July 06, 2021 4 :10pm Power of Keyboard Teacher Yes July 06, 2021 4:10pm Documents on File Type Date Recorded 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 Advance Directive(s) 12/15/2016 5:49 PM Advance Directive Response Recorded Date/ Time Name of Medical Power of Keyboard Teacher Sister Juanita June 24, 2021 3:44pm Name of Medical Power of Keyboard Teacher Juanita Casarez , June 29, 2021 12:19pm Name of Medical Power of Keyboard Teacher Juanita Lala July 03, 2021 11:48pm Name of Medical Power of Keyboard Teacher sister alvarez July 04, 2021 9:57am Name of Medical Power of Keyboard Teacher Juanita Casarez July 06, 2021 4:10pm Advance Directives Yes March 8:55pm Living Will No September 12, 2021 12:06pm Power of Keyboard Teacher No September 12 12:06pm Advance Directive Response Recorded Date/ Time Advance Directives Yes March 7:55pm Living Will No September 12, 2021 11:06am Power of Keyboard Teacher No September 12 11:06am Advance Directive Response Recorded Date/ Time Advance Directives Yes March 8:55pm Living Will No May 08, 2022 1:18pm Power of Keyboard Teacher No May 08 1:18pm Advance Directive Response Recorded Date/ Time Advance Directives Yes March 7:55pm Living Will No May 08, 2022 12:18pm Power of Keyboard Teacher No May 08 12:18pm Advance Directive Response Recorded Date/ Time Advance Directives Yes December 9:15am Advance Directive Response Recorded Date/ Time Do you have a Healthcare Power of Keyboard Teacher? No September 06, 2024 12:51pm Advance Directives Yes December 9:15am Chief Complaint and Reason for Visit Chief Complaint TYPE 2 DM, OBESITY TYPE 2 DM, OBESITY IDIOPATHIC ASEPTIC NECROSIS OF L FEMUR.RX HERE TYPE 2 DM, OBESITY 6 M FU E ORDERS 6 M FU PRE-OP TYPE 2 DM, OBESITY ERAS, LT DIRECT ANTERIOR TOTAL HIP LUNG NODULE GENERAL ILLNESS Reason for Visit Paroxysmal atrial fi brillation Preop cardiovascular exam Benign essential HTN Chronic diastolic heart failure Hyperlipidemia Asthma Lung nodule Chief Complaint TYPE 2 DM, OBESITY IDIOPATHIC ASEPTIC NECROSIS OF L FEMUR.RX HERE TYPE 2 DM, OBESITY 6 M FU E ORDERS 6 M FU PRE-OP TYPE 2 DM, OBESITY ERAS, LT DIRECT ANTERIOR TOTAL HIP LUNG NODULE GENERAL ILLNESS COUGH/ACUTE TYPE 2 DM, OBESITY LT ANTERIOR TOTAL HIP LT ANTERIOR TOTAL HIP LT ANTERIOR TOTAL HIP LT ANTERIOR TOTAL HIP Reason for Visit Paroxysmal atrial fi brillation Preop cardiovascular exam Benign essential HTN Chronic diastolic heart failure Hyperlipidemia Asthma Lung nodule COPD with acute exacerbation COPD with acute exacerbation Cough Paroxysmal atrial fibrillation S/P hip replacement S/P total left hip arthroplasty Shortness of breath Diabetes mellitus Hx pulmonary embolism Obesity Chief Complaint IDIOPATHIC ASEPTIC N ECROSIS OF L FEMUR.RX HERE TYPE 2 DM, OBESITY 6 M FU E ORDERS 6 M FU PRE-OP TYPE 2 DM, OBESITY ERAS, LT DIRECT ANTERIOR TOTAL HIP LUNG NODULE GENERAL ILLNESS COUGH/ACUTE TYPE 2 DM, OBESITY LT ANTERIOR TOTAL HIP LT ANTERIOR TOTAL HIP LT ANTERIOR TOTAL HIP LT ANTERIOR TOTAL HIP LEFT ANTERIOR TOTAL HIP PAIN LEFT LEG fever Reason for Visit Paroxysmal atrial fi brillation Preop cardiovascular exam Benign essential HTN Chronic diastolic heart failure Hyperlipidemia Asthma Lung nodule Cough Paroxysmal atrial fibrillation S/P total left hip arthroplasty Shortness of breath Diabetes mellitus Hx pulmonary embolism Obesity Asthma Atrial fibrillation Bronchiectasis Debility Diabetes mellitus Heart failure with preserved ejection fraction Osteoarthritis of left hip Pneumonia due to Pseudomonas Pulmonary embolism S/P total left hip arthroplasty Chronic kidney disease, stage 3a Hypertension Chief Complaint IDIOPATHIC ASEPTIC N ECROSIS OF L FEMUR.RX HERE TYPE 2 DM, OBESITY 6 M FU E ORDERS 6 M FU PRE-OP TYPE 2 DM, OBESITY ERAS, LT DIRECT ANTERIOR TOTAL HIP LUNG NODULE GENERAL ILLNESS COUGH/ACUTE TYPE 2 DM, OBESITY LT ANTERIOR TOTAL HIP LT ANTERIOR TOTAL HIP LT ANTERIOR TOTAL HIP LT ANTERIOR TOTAL HIP LEFT ANTERIOR TOTAL HIP PAIN LEFT LEG fever PNEUMONIA Reason for Visit Paroxysmal atrial fi brillation Preop cardiovascular exam Benign essential HTN Chronic diastolic heart failure Hyperlipidemia Asthma Lung nodule Cough Paroxysmal atrial fibrillation S/P total left hip arthroplasty Shortness of breath Diabetes mellitus Hx pulmonary embolism Obesity Asthma Atrial fibrillation Bronchiectasis Debility Diabetes mellitus Heart failure with preserved ejection fraction Osteoarthritis of left hip Pneumonia due to Pseudomonas Pulmonary embolism S/P total left hip arthroplasty Chronic kidney disease, stage 3a Hypertension Fever Pneumonia Chief Complaint IDIOPATHIC ASEPTIC N ECROSIS OF L FEMUR.RX HERE TYPE 2 DM, OBESITY 6 M FU E ORDERS 6 M FU PRE-OP TYPE 2 DM, OBESITY ERAS, LT DIRECT ANTERIOR TOTAL HIP LUNG NODULE GENERAL ILLNESS COUGH/ACUTE TYPE 2 DM, OBESITY LT ANTERIOR TOTAL HIP LT ANTERIOR TOTAL HIP LT ANTERIOR TOTAL HIP LT ANTERIOR TOTAL HIP LEFT ANTERIOR TOTAL HIP PAIN LEFT LEG fever PNEUMONIA Pneumonia Pneumonia PNEUMONIA Reason for Visit Paroxysmal atrial fi brillation Preop cardiovascular exam Benign essential HTN Chronic diastolic heart failure Hyperlipidemia Asthma Lung nodule Cough Paroxysmal atrial fibrillation S/P total left hip arthroplasty Shortness of breath Diabetes mellitus Hx pulmonary embolism Obesity Asthma Atrial fibrillation Bronchiectasis Debility Diabetes mellitus Heart failure with preserved ejection fraction Osteoarthritis of left hip Pneumonia due to Pseudomonas Pulmonary embolism S/P total left hip arthroplasty Chronic kidney disease, stage 3a Hypertension Fever Pneumonia Allergic rhinitis Asthma Atrial fibrillation Debility Gastroesophageal reflux disease Hyperlipidemia Hypokalemia Hypothyroidism Iron deficiency anemia Pseudomonas pneumonia Vitamin D deficiency Chronic diastolic congestive heart failure Chief Complaint IDIOPATHIC ASEPTIC N ECROSIS OF L FEMUR.RX HERE TYPE 2 DM, OBESITY 6 M FU E ORDERS 6 M FU PRE-OP TYPE 2 DM, OBESITY ERAS, LT DIRECT ANTERIOR TOTAL HIP LUNG NODULE GENERAL ILLNESS COUGH/ACUTE TYPE 2 DM, OBESITY LT ANTERIOR TOTAL HIP LT ANTERIOR TOTAL HIP LT ANTERIOR TOTAL HIP LT ANTERIOR TOTAL HIP LEFT ANTERIOR TOTAL HIP PAIN LEFT LEG fever PNEUMONIA Pneumonia Pneumonia PNEUMONIA Pneumonia Reason for Visit Preop cardiovascular exam S/P total left hip arthroplasty Asthma Atrial fibrillation Bronchiectasis Debility Diabetes mellitus Heart failure with preserved ejection fraction Pulmonary embolism Chronic kidney disease, stage 3a Hypertension Osteoarthritis of left hip S/P total left hip arthroplasty Fever Pneumonia Debility Pseudomonas pneumonia Allergic rhinitis Asthma Atrial fibrillation Chronic diastolic congestive heart failure Gastroesophageal reflux disease Hyperlipidemia Hypothyroidism Vitamin D deficiency Hypokalemia Chief Complaint PRE-OP TYPE 2 DM, OBESITY ERAS, LT DIRECT ANTERIOR TOTAL HIP LUNG NODULE GENERAL ILLNESS COUGH/ACUTE TYPE 2 DM, OBESITY LT ANTERIOR TOTAL HIP LT ANTERIOR TOTAL HIP LT ANTERIOR TOTAL HIP LT ANTERIOR TOTAL HIP LEFT ANTERIOR TOTAL HIP PAIN LEFT LEG fever PNEUMONIA Pneumonia Pneumonia PNEUMONIA Pneumonia 4 M FU Reason for Visit S/P total left hip a rthroplasty Asthma Atrial fibrillation Bronchiectasis Debility Diabetes mellitus Heart failure with preserved ejection fraction Pulmonary embolism Chronic kidney disease, stage 3a Hypertension Osteoarthritis of left hip S/P total left hip arthroplasty Fever Pneumonia Debility Pseudomonas pneumonia Hypokalemia Chief Complaint GENERAL ILLNESS COUGH/ACUTE TYPE 2 DM, OBESITY LT ANTERIOR TOTAL HIP LT ANTERIOR TOTAL HIP LT ANTERIOR TOTAL HIP LT ANTERIOR TOTAL HIP LEFT ANTERIOR TOTAL HIP PAIN LEFT LEG fever PNEUMONIA Pneumonia Pneumonia PNEUMONIA Pneumonia 4 M FU wound wound wound wound Reason for Visit S/P total left hip a rthroplasty Asthma Atrial fibrillation Bronchiectasis Debility Diabetes mellitus Heart failure with preserved ejection fraction Pulmonary embolism Chronic kidney disease, stage 3a Hypertension Osteoarthritis of left hip S/P total left hip arthroplasty Fever Pneumonia Debility Pseudomonas pneumonia Hypokalemia Dehiscence of surgical wound Nonhealing surgical wound Status post total hip replacement, left Chief Complaint COUGH/ACUTE TYPE 2 DM, OBESITY LT ANTERIOR TOTAL HIP LT ANTERIOR TOTAL HIP LT ANTERIOR TOTAL HIP LT ANTERIOR TOTAL HIP LEFT ANTERIOR TOTAL HIP PAIN LEFT LEG fever PNEUMONIA Pneumonia Pneumonia PNEUMONIA Pneumonia 4 M FU wound wound wound wound h/a, neck pain, fever Reason for Visit S/P total left hip a rthroplasty Asthma Atrial fibrillation Bronchiectasis Debility Diabetes mellitus Heart failure with preserved ejection fraction Pulmonary embolism Chronic kidney disease, stage 3a Hypertension Osteoarthritis of left hip S/P total left hip arthroplasty Fever Pneumonia Debility Pseudomonas pneumonia Hypokalemia Dehiscence of surgical wound Nonhealing surgical wound Status post total hip replacement, left Chief Complaint COVID 1 Y FU Reason for Visit Heart failure with p reserved ejection fraction Paroxysmal atrial fibrillation Chief Complaint 6 M FU GAGAN Reason for Visit Asthma Daytime hypersomnia Morbid obesity Chief Complaint 6 M FU GAGAN sob Reason for Visit Asthma Daytime hypersomnia Morbid obesity Chief Complaint 6 M FU GAGAN sob 3 M FU 6 m fu rule out pneumonia; cough; congestion Reason for Visit Asthma Daytime hypersomnia Morbid obesity GAGAN (obstructive sleep apnea) Heart failure with preserved ejection fraction Hyperlipidemia Paroxysmal atrial fibrillation Chief Complaint GAGAN sob 3 M FU 6 m fu rule out pneumonia; cough; congestion IDIOPATHIC ASEPTIC NECROSIS OF LEFT ANKLE Reason for Visit GAGAN (obstructive sle ep apnea) Heart failure with preserved ejection fraction Hyperlipidemia Paroxysmal atrial fibrillation Chief Complaint 3 M FU 6 m fu rule out pneumonia; cough; congestion IDIOPATHIC ASEPTIC NECROSIS OF LEFT ANKLE Reason for Visit GAGAN (obstructive sle ep apnea) Heart failure with preserved ejection fraction Hyperlipidemia Paroxysmal atrial fibrillation Chief Complaint rule out pneumonia; cough; congestion IDIOPATHIC ASEPTIC NECROSIS OF LEFT ANKLE Chief Complaint IDIOPATHIC ASEPTIC N ECROSIS OF LEFT ANKLE Chief Complaint 6 M FU E ORDERS 6 M FU 3 M FU Reason for Visit Heart failure with p reserved ejection fraction Hyperlipidemia Paroxysmal atrial fibrillation Asthma Bronchiectasis Morbid obesity GAGAN (obstructive sleep apnea) GAGAN (obstructive sleep apnea) Chief Complaint 6 M FU 3 M FU PERIPHERAL VASCULAR DISEASE Reason for Visit Asthma Bronchiectasis Morbid obesity GAGAN (obstructive sleep apnea) GAGAN (obstructive sleep apnea) Chief Complaint 3 M FU PERIPHERAL VASCULAR DISEASE wound Reason for Visit GAGAN (obstructive sle ep apnea) Non-pressure chronic ulcer of right ankle with fat layer exposed Venous insufficiency (chronic) (peripheral) Chief Complaint 3 M FU PERIPHERAL VASCULAR DISEASE wound wound Reason for Visit GAGAN (obstructive sle ep apnea) Non-pressure chronic ulcer of right ankle with fat layer exposed Venous insufficiency (chronic) (peripheral) Non-pressure chronic ulcer of right ankle with fat layer exposed Venous insufficiency (chronic) (peripheral) Chief Complaint Admit Date EORDER February 13, 2024 4:09pm LUMBAR DDD March 26, 2024 4:08pm LUMBAR SPINE May 03, 2024 9:4 0am room 6 May 03, 2024 10: 16am EORDER May 10, 2024 9:0 0am 6 M FU May 16, 2024 2:39 pm PALP May 23, 2024 8:39 am LUMBAR SCOLIOSIS. RX HERE May 29 10:00am Reason for Visit Admit Date Leg length discrepancy May 03, 2024 9:40am Lumbar scoliosis May 03, 2024 9:4 0am Neuropathy May 03, 2024 9:4 0am Osteopenia determined by x-ray April 9:40am Spondylolisthesis, lumbar region April 152024 9:40am Essential hypertension May 16, 2024 2 :39pm Heart failure with preserved ejection fr action May 16, 2024 2:39pm Hyperlipidemia May 16, 2024 2:39 pm PAF (paroxysmal atrial fibrillation) Apr 2024 2:39pm Chief Complaint Admit Date LUMBAR DDD March 26, 2024 4:08pm LUMBAR SPINE May 03, 2024 9:4 0am room 6 May 03, 2024 10: 16am EORDER May 10, 2024 9:0 0am 6 M FU May 16, 2024 2:39 pm PALP May 23, 2024 8:39 am PALP May 23, 2024 9:00 am LUMBAR SCOLIOSIS. RX HERE June 14, 2024 10:00am Chief Complaint Admit Date LUMBAR SPINE May 03, 2024 9:4 0am room May 03, 2024 10: 16am EORDER May 10, 2024 9:0 0am 6 M FU May 16, 2024 2:39 pm PALP May 23, 2024 8:39 am PALP May 23, 2024 9:00 am LUMBAR SCOLIOSIS. RX HERE June 14, 2024 10:00am Pain in unspecified lower leg (STAT) Jul 1:34pm LT LEG PAIN July 19, 2024 1:43p m Chief Complaint Admit Date LUMBAR SPINE May 03, 2024 9:4 0am room May 03, 2024 10: 16am EORDER May 10, 2024 9:0 0am 6 M FU May 16, 2024 2:39 pm PALP May 23, 2024 8:39 am PALP May 23, 2024 9:00 am LUMBAR SCOLIOSIS. RX HERE June 14, 2024 10:00am Pain in unspecified lower leg (STAT) Jul 1:34pm LT LEG PAIN July 19, 2024 1:43p m SCREENING August 22, 2024 3:33p m Chief Complaint Admit Date EORDER May 10, 2024 9:0 0am 6 M FU May 16, 2024 2:39 pm PALP May 23, 2024 8:39 am PALP May 23, 2024 9:00 am LUMBAR SCOLIOSIS. RX HERE June 14, 2024 10:00am Pain in unspecified lower leg (STAT) Jul 1:34pm LT LEG PAIN July 19, 2024 1:43p m SCREENING August 22, 2024 3:33p m EORDERS AND ADDT. LABS/ CHEST XRAY September 05, 2024 11:05am IV antibiotics September 05, 2024 2:28 pm Reason for Visit Admit Date Essential hypertension May 16, 2024 2 :39pm Heart failure with preserved ejection fr action May 16, 2024 2:39pm Hyperlipidemia May 16, 2024 2:39 pm PAF (paroxysmal atrial fibrillation) Apr 2024 2:39pm Chief Complaint Admit Date EOMay 10, 2024 9:0 0am 6 M FU May 16, 2024 2:39 pm PALP May 23, 2024 8:39 am PALP May 23, 2024 9:00 am LUMBAR SCOLIOSIS. RX HERE June 14, 2024 10:00am Pain in unspecified lower leg (STAT) Jul 1:34pm LT LEG PAIN July 19, 2024 1:43p m SCREENING August 22, 2024 3:33p m EORDERS AND ADDT. LABS/ CHEST XRAY September 05, 2024 11:05am IV antibiotics September 05, 2024 2:28 pm FEVER September 06, 2024 12:3 6pm Chief Complaint Admit Date EOER May 10, 2024 9:0 0am 6 M FU May 16, 2024 2:39 pm PALP May 23, 2024 8:39 am PALP May 23, 2024 9:00 am LUMBAR SCOLIOSIS. RX HERE June 14, 2024 10:00am Pain in unspecified lower leg (STAT) Jul 1:34pm LT LEG PAIN July 19, 2024 1:43p m SCREENING August 22, 2024 3:33p m EORDERS AND ADDT. 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) Avascular necrosis of left tibia (HCC) Procedures CONSULT TO ORTHOTIC/PROSTHETIC Keyon Meade DPM [address] [place] [address] Referral ID Status Reason Start Date Expiration Date V isits Requested Visits Authorized [id number] Ref Not Required 09/16/2022 11/15/2022 1 1 Additional Source Comments INFORMATION SOURCE (unrecogn ized section and content) DATE CREATED AUTHOR 08/08/2017 [facility] DATE CREATED AUTHOR AUTHOR'S ORGANIZ ATION 08/09/2017 [facility] DATE CREATED AUTHOR AUTHOR'S ORGANIZ ATION 05/22/2021 [facility] DATE CREATED AUTHOR AUTHOR'S ORGANIZ ATION 11/07/2022 [facility] DATE CREATED AUTHOR AUTHOR'S ORGANIZ ATION 05/07/2024 [facility] DATE CREATED AUTHOR AUTHOR'S ORGANIZ ATION 09/06/2024 [facility] Goals (unrecognized section and content) Goals may be documented in a n alternate sectionGoals may be documented in an alternate sectionGoals may be documented in an alternate sectionGoals may be documented in an alternate sectionGoals may be documented in an alternate sectionGoals may be documented in an alternate sectionGoals may be documented in an alternate sectionGoals may be documented in an alternate sectionGoals may be documented in an alternate sectionGoals may be documented in an alternate sectionGoals may be documented in an alternate sectionGoals may be documented in an alternate sectionGoals may be documented in an alternate sectionGoals may be documented in an alternate sectionGoals may be documented in an alternate sectionGoals may be documented in an alternate sectionGoals may be documented in an alternate sectionGoals may be documented in an alternate sectionGoals may be documented in an alternate sectionGoals may be documented in an alternate sectionGoals may be documented in an alternate sectionGoals may be documented in an alternate sectionGoals may be documented in an alternate sectionGoals may be documented in an alternate sectionGoals may be documented in an alternate sectionGoals may be documented in an alternate sectionGoals may be documented in an alternate sectionGoals may be documented in an alternate sectionGoals may be documented in an alternate sectionGoals may be documented in an alternate sectionGoals may be documented in an alternate section Source Comments (unrecognize d section and content) In the event this informatio n is protected by the Federal Confidentiality of Alcohol and Drug Abuse Patient Records regulations: The Federal rules restrict any use of the information to criminally investigate or prosecute any alcohol or drug abuse patient.[facility] the event this information is protected by the Federal Confidentiality of Alcohol and Drug Abuse Patient Records regulations: The Federal rules restrict any use of the information to criminally investigate or prosecute any alcohol or drug abuse patient.[facility] the event this information is protected by the Federal Confidentiality of Alcohol and Drug Abuse Patient Records regulations: The Federal rules restrict any use of the information to criminally investigate or prosecute any alcohol or drug abuse patient.[facility] the event this information is protected by the Federal Confidentiality of Alcohol and Drug Abuse Patient Records regulations: The Federal rules restrict any use of the information to criminally investigate or prosecute any alcohol or drug abuse patient.[facility] the event this information is protected by the Federal Confidentiality of Alcohol and Drug Abuse Patient Records regulations: The Federal rules restrict any use of the information to criminally investigate or prosecute any alcohol or drug abuse patient.[facility] the event this information is protected by the Federal Confidentiality of Alcohol and Drug Abuse Patient Records regulations: The Federal rules restrict any use of the information to criminally investigate or prosecute any alcohol or drug abuse patient.[facility] the event this information is protected by the Federal Confidentiality of Alcohol and Drug Abuse Patient Records regulations: The Federal rules restrict any use of the information to criminally investigate or prosecute any alcohol or drug abuse patient.[facility] the event this information is protected by the Federal Confidentiality of Alcohol and Drug Abuse Patient Records regulations: The Federal rules restrict any use of the information to criminally investigate or prosecute any alcohol or drug abuse patient.[facility] the event this information is protected by the Federal Confidentiality of Alcohol and Drug Abuse Patient Records regulations: The Federal rules restrict any use of the information to criminally investigate or prosecute any alcohol or drug abuse patient.[facility] the event this information is protected by the Federal Confidentiality of Alcohol and Drug Abuse Patient Records regulations: The Federal rules restrict any use of the information to criminally investigate or prosecute any alcohol or drug abuse patient.[facility] the event this information is protected by the Federal Confidentiality of Alcohol and Drug Abuse Patient Records regulations: The Federal rules restrict any use of the information to criminally investigate or prosecute any alcohol or drug abuse patient.[facility] the event this information is protected by the Federal Confidentiality of Alcohol and Drug Abuse Patient Records regulations: The Federal rules restrict any use of the information to criminally investigate or prosecute any alcohol or drug abuse patient.[facility] the event this information is protected by the Federal Confidentiality of Alcohol and Drug Abuse Patient Records regulations: The Federal rules restrict any use of the information to criminally investigate or prosecute any alcohol or drug abuse patient.[facility] the event this information is protected by the Federal Confidentiality of Alcohol and Drug Abuse Patient Records regulations: The Federal rules restrict any use of the information to criminally investigate or prosecute any alcohol or drug abuse patient.[facility] the event this information is protected by the Federal Confidentiality of Alcohol and Drug Abuse Patient Records regulations: The Federal rules restrict any use of the information to criminally investigate or prosecute any alcohol or drug abuse patient.[facility] Reason for Visit (unrecogniz ed section and content) Reason Comments Fever neck pain, JONES, chill s x1 day Reason Comments vulvar itching Intermittently since June Reason Comments Results Reason Comments Patient Update Reason Comments vulvar biopsy Reason Comments Follow Up Reason Comments Follow Up Vulvar Biopsy 01/08 Reason Comments New Reason Comments vulvar itching Reason Comments Vaginal Problem Vaginal irritation t hat has stayed the same since 10/29/2022 appointment Reason Comments Vaginal Problem Hard lump on labia x 1-2 weeks, some tenderness Reason Comments Vaginal Problem Bump on labia Care Teams (unrecognized sec tion and content) Automobile Contract Clerk Relationship Specialty Start Date End Date Moreno Donnelly MD [address] [facility] [place] [address] PCP - General 11/27/07 Moreno Donnelly MD [address] [place] [address] Referring Family Practice 10/01/20 Automobile Contract Clerk Relationship Specialty Start Date End Date Moreno Donnelly MD [address] [place] [address] PCP - General 11/27/07 Moreno Donnelly MD [address] [place] [address] Referring Family Medicine 10/01/20 Automobile Contract Clerk Relationship Specialty Start Date End Date Moreno Donnelly MD [address] [place] [address] PCP - General 11/27/07 Moreno Donnelly MD [address] [facility] [place] [address] Referring Family Medicine 10/01/20 Automobile Contract Clerk Relationship Specialty Start Date End Date Moreno Donnelly MD [address] [place] [address] PCP - General 11/27/07 Moreno Donnelly MD [address] [place] [address] Referring Family Medicine 10/01/20 Automobile Contract Clerk Relationship Specialty Start Date End Date Moreno Donnelly MD [address] [place] [address] PCP - General 11/27/07 Moreno Donnelly MD [address] [place] [address] Referring Family Medicine 10/01/20 Automobile Contract Clerk Relationship Specialty Start Date End Date Moreno Donnelly MD [address] [place] [address] PCP - General 11/27/07 Moreno Donnelly MD [address] [place] [address] Referring Family Medicine 10/01/20 Automobile Contract Clerk Relationship Specialty Start Date End Date Moreno Donnelly MD [address] [place] [address] PCP - General 11/27/07 Moreno Donnelly MD [address] [place] [address] Referring Family Medicine 10/01/20 Team Status: Active Member Role Status Dates Dr. Ervin Donnelly MD Family Provider Active Dr. Ervin Donnelly MD Primary Care Provider Activ e Team Status: Inactive Member Role Status Dates Dr. Ervin Donnelly MD Primary Care Provider Activ e Marie Langley FANS CLERK, FANS CLERK-C Attending Provider, Referrin g Provider Active Team Status: Inactive Member Role Status Dates Dr. Ervin Donnelly MD Primary Care Provider, Attending Provider, Referring Provider Active Team Status: Inactive Member Role Status Dates Dr. Ervin Donnelly MD Primary Care Provider Activ e Dr. Thierno Wilson MD Emergency Provider Active Team Status: Inactive Member Role Status Dates Dr. Ervin Donnelly MD Primary Care Provider, Refe rring Provider Active Adry Pires FANS CLERK, FANS CLERK-C Attending Provider Active Team Status: Inactive Member Role Status Dates Dr. Ervin Donnelly MD Primary Care Provider, Refe rring Provider Active Dr. Pete Bazzi DO Attending Provider Active Team Status: Inactive Member Role Status Dates Dr. Ervin Donnelly MD Primary Care Provider Activ e Dr. Thierno Wilson MD Attending Provider, Emergency Pro vider Active Team Status: Inactive Member Role Status Dates Dr. Ervin Donnelly MD Primary Care Provider Activ e Daphne Chicas NP-C Attending Provider, Referring Pr ovider Active Team Status: Inactive Member Role Status Dates Dr. Ervin Donnelly MD Primary Care Provider Activ e Dr. Nicky Cavanaugh , DPM Attending Provider, Referring Provider Active Team Status: Inactive Member Role Status Dates Dr. Ervin Donnelly MD Primary Care Provider, Atte nding Provider Active Automobile Contract Clerk Relationship Specialty Start Date End Date Moreno Donnelly MD [address] [place], [place] [address] PCP - General 11/27/07 Moreno Donnelly MD [address] [facility] [place] [address] Referring Family Medicine 10/01/20 Automobile Contract Clerk Relationship Specialty Start Date End Date Moreno Donnelly MD [address] [place], [place] [address] PCP - General 11/27/07 Moreno Donnelly MD [address] [place], [place] [address] Referring Family Medicine 10/01/20 Automobile Contract Clerk Relationship Specialty Start Date End Date Moreno Donnelly MD [address] [place] [id number] PCP - General 11/27/07 Moreno Donnelly MD [address] [place], [place] [address] Referring Family Medicine 10/01/20 Automobile Contract Clerk Relationship Specialty Start Date End Date Moreno Donnelly MD [address] [place], [place] [address] PCP - General 11/27/07 Moreno Donnelly MD [address] [place], [place] [address] Referring Family Medicine 10/01/20 Automobile Contract Clerk Relationship Specialty Start Date End Date Moreno Donnelly MD [address] [place], [place] [address] PCP - General 11/27/07 Moreno Donnelly MD [address] [place], [place] [id number] Referring Family Medicine 10/01/20 Team Status: Inactive Member Role Status Dates Dr. Ervin Donnelly MD Primary Care Provider, Refe rring Provider Active Marie Langley FANS CLERK, FANS CLERK-C Attending Provider Active Team Status: Inactive Member Role Status Dates Dr. Ervin Donnelly MD Primary Care Provider Activ e Adry Pires FANS CLERK, FANS CLERK-C Attending Provider, Referring P swati Active Team Status: Active Member Role Status Dates Dr. Ervin Donnelly MD Primary Care Provider Activ e Dr. Joo Higuera MD Attending Provider Active Team Status: Inactive Member Role Status Dates Dr. Ervin Donnelly MD Primary Care Provider Activ e Dr. Nicky Cavanaugh DPM Attending Provider, Referring Provider Active Marie Langley FANS CLERK, FANS CLERK-C Other Provider Active Team Status: Active Member Role Status Dates Dr. Ervin Donnelly MD Primary Care Provider Activ e Dr. Joo Higuera MD Attending Provider Active Dr. Nicky Cavanaugh DPM Referring Provider Active Team Status: Active Member Role Status Dates Dr. Moreno Donnelly MD Family Provider Active Dr. Moreno Donnelly MD Primary Care Provider Acti ve Team Status: Inactive Member Role Status Dates Dr. Moreno Donnelly MD Primary Care Provider, Ref erring Provider Active Dr. Pete Bazzi DO Attending Provider Active Team Status: Active Member Role Status Dates Dr. Moreno Donnelly MD Primary Care Provider Acti ve Dr. Joo Higuera MD Attending Provider Active Dr. Nicky Cavanaugh DPM Referring Provider Active Team Status: Inactive Member Role Status Dates Dr. Moreno Donnelly MD Primary Care Provider, Att ending Provider Active Team Status: Inactive Member Role Status Dates Dr. Moreno Donnelly MD Primary Care Provider Acti ve Dr. Nicky Cavanaugh DPM Attending Provider, Referring Provider Active Marie Langley FANS CLERK, FANS CLERK-C Other Provider Active Team Status: Inactive Member Role Status Dates Dr. Moreno Donnelly MD Primary Care Provider Acti ve Dr. 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 Moreno Donnelly MD Primary Care Provider Acti ve Team Status: Inactive Member Role Status Dates Dr. Moreno Donnelly MD Primary Care Provider Acti ve Start: February 09, 2024 End: February 09, 2024 Jan Davenport FANS CLERK, FANS CLERK-C Attending Provider Active Start: February 09, 2024 End: February 09, 2024 Jan Davenport FANS CLERK, FANS CLERK-C Referring Provider Active Start: February 09, 2024 End: February 09, 2024 Team Status: Inactive Member Role Status Dates Dr. Moreno Donnelly MD Primary Care Provider Acti ve Start: February 13, 2024 End: February 13, 2024 Dr. Moreno Donnelly MD Attending Provider Active Start: February 13, 2024 End: February 13, 2024 Dr. Moreno Donnelly MD Referring Provider Active Start: February 13, 2024 End: February 13, 2024 Team Status: Inactive Member Role Status Dates Dr. Moreno Donnelly MD Primary Care Provider Acti ve Start: February 23, 2024 End: February 23, 2024 Dr. Moreno Donnelly MD Attending Provider Active Start: February 23, 2024 End: February 23, 2024 Dr. Moreno Donnelly MD Referring Provider Active Start: February 23, 2024 End: February 23, 2024 Team Status: Inactive Member Role Status Dates Dr. Moreno Donnelly MD Primary Care Provider Acti ve Start: March 08, 2024 End: March 08, 2024 Dr. Moreno Donnelly MD Attending Provider Active Start: March 08, 2024 End: March 08, 2024 Dr. Moreno Donnelly MD Referring Provider Active Start: March 08, 2024 End: March 08, 2024 Team Status: Inactive Member Role Status Dates Dr. Moreno Donnelly MD Primary Care Provider Acti ve Start: March 26, 2024 End: March 26, 2024 Dr. Moreno Donnelly MD Attending Provider Active Start: March 26, 2024 End: March 26, 2024 Dr. Moreno Donnelly MD Referring Provider Active Start: March 26, 2024 End: March 26, 2024 Team Status: Inactive Member Role Status Dates Dr. Moreno Donnelly MD Primary Care Provider Acti ve Start: April 11, 2024 End: April 11, 2024 Jeanie Arteaga NP, FANS CLERK-C Attending Provider Active Start: April 11, 2024 End: April 11, 2024 Team Status: Inactive Member Role Status Dates Dr. Moreno Donnelly MD Primary Care Provider Acti ve Start: April 18, 2024 End: April 18, 2024 Dr. Peter Ambrocio MD Attending Provider Active Start: April 18, 2024 End: April 18, 2024 Dr. Peter Ambrocio MD Referring Provider Active Start: April 18, 2024 End: April 18, 2024 Team Status: Inactive Member Role Status Dates Dr. Moreno Donnelly MD Primary Care Provider Acti ve Start: April 19, 2024 End: April 19, 2024 Dr. Peter Ambrocio MD Attending Provider Active Start: April 19, 2024 End: April 19, 2024 Dr. Peter Ambrocio MD Referring Provider Active Start: April 19, 2024 End: April 19, 2024 Team Status: Inactive Member Role Status Dates Dr. Moreno Donnelly MD Primary Care Provider Acti ve Start: April 20, 2024 End: April 20, 2024 Dr. Peter Ambrocio MD Attending Provider Active Start: April 20, 2024 End: April 20, 2024 Dr. Peter Ambrocio MD Referring Provider Active Start: April 20, 2024 End: April 20, 2024 Team Status: Inactive Member Role Status Dates Dr. Moreno Donnelly MD Primary Care Provider Acti ve Start: April 21, 2024 End: April 21, 2024 Dr. Peter Ambrocio MD Attending Provider Active Start: April 21, 2024 End: April 21, 2024 Dr. Peter Ambrocio MD Referring Provider Active Start: April 21, 2024 End: April 21, 2024 Team Status: Inactive Member Role Status Dates Dr. Moreno Donnelly MD Primary Care Provider Acti ve Start: April 24, 2024 End: April 24, 2024 Dr. Moreno Donnelly MD Attending Provider Active Start: April 24, 2024 End: April 24, 2024 Dr. Moreno Donnelly MD Referring Provider Active Start: April 24, 2024 End: April 24, 2024 Team Status: Inactive Member Role Status Dates Dr. Moreno Donnelly MD Primary Care Provider Acti ve Start: May 03, 2024 End: May 03, 2024 Dr. Moreno Donnelly MD Referring Provider Active Start: May 03, 2024 End: May 03, 2024 Dr. Benigno Suárez MD Attending Provider Active Start: May 03, 2024 End: May 03, 2024 Team Status: Inactive Member Role Status Dates Dr. Moreno Donnelly MD Primary Care Provider Acti ve Start: May 03, 2024 End: May 03, 2024 Dr. Cisco Dickens MD Attending Provider Active S tart: May 03, 2024 End: May 03, 2024 Team Status: Inactive Member Role Status Dates Dr. Moreno Donnelly MD Primary Care Provider Acti ve Start: May 10, 2024 End: May 10, 2024 Dr. Moreno Donnelly MD Attending Provider Active Start: May 10, 2024 End: May 10, 2024 Dr. Moreno Donnelly MD Referring Provider Active Start: May 10, 2024 End: May 10, 2024 Team Status: Inactive Member Role Status Dates Dr. Moreno Donnelly MD Primary Care Provider Acti ve Start: May 16, 2024 End: May 16, 2024 Dr. Moreno Donnelly MD Referring Provider Active Start: May 16, 2024 End: May 16, 2024 NEDA Maldonado Attending Provider Active St art: May 16, 2024 End: May 16, 2024 Team Status: Inactive Member Role Status Dates Dr. Moreno Donnelly MD Primary Care Provider Acti ve Start: May 23, 2024 End: May 23, 2024 NEDA Maldonado Attending Provider Active St art: May 23, 2024 End: May 23, 2024 NEDA Maldonado Referring Provider Active St art: May 23, 2024 End: May 23, 2024 Team Status: Active Member Role Status Dates Dr. Moreno Donnelly MD Primary Care Provider Acti ve Start: May 29, 2024 Dr. Benigno Suárez MD Attending Provider Active Start: May 29, 2024 Dr. Benigno Suárez MD Referring Provider Active Start: May 29, 2024 Team Status: Active Member Role Status Dates Dr. Moreno Donnelly MD Primary Care Provider Acti ve Start: May 23, 2024 Dr. Cisco Dickens MD Attending Provider Active S tart: May 23, 2024 NEDA Maldonado Referring Provider Active St art: May 23, 2024 Team Status: Inactive Member Role Status Dates Dr. Moreno Donnelly MD Primary Care Provider Acti ve Start: June 14, 2024 End: June 14, 2024 Dr. Benigno Suárez MD Attending Provider Active Start: June 14, 2024 End: June 14, 2024 Dr. Benigno Suárez MD Referring Provider Active Start: June 14, 2024 End: June 14, 2024 Team Status: Inactive Member Role Status Dates Dr. Moreno Donnelly MD Primary Care Provider Acti ve Start: July 05, 2024 End: July 05, 2024 Jeanie Arteaga FANS CLERK, FANS CLERK-C Attending Provider Active Start: July 05, 2024 End: July 05, 2024 Jeanie Arteaga FANS CLERK, FANS CLERK-C Referring Provider Active Start: July 05, 2024 End: July 05, 2024 Team Status: Inactive Member Role Status Dates Dr. Moreno Donnelly MD Primary Care Provider Acti ve Start: July 19, 2024 End: July 19, 2024 Dr. Moreno Donnelly MD Attending Provider Active Start: July 19, 2024 End: July 19, 2024 Dr. Moreno Donnelly MD Referring Provider Active Start: July 19, 2024 End: July 19, 2024 Team Status: Active Member Role Status Dates Dr. Cal Lewis MD Attending Provider Active Start: July 19, 2024 Dr. Moreno Donnelly MD Referring Provider Active Start: July 19, 2024 Team Status: Active Member Role Status Dates Dr. Moreno Donnelly MD Primary Care Provider Acti ve Start: July 25, 2024 Dr. Moreno Donnelly MD Attending Provider Active Start: July 25, 2024 Dr. Moreno Donnelly MD Referring Provider Active Start: July 25, 2024 Team Status: Inactive Member Role Status Dates Dr. Moreno Donnelly MD Primary Care Provider Acti ve Start: July 25, 2024 End: July 25, 2024 Dr. Moreno Donnelly MD Attending Provider Active Start: July 25, 2024 End: July 25, 2024 Dr. Moreno Donnelly MD Referring Provider Active Start: July 25, 2024 End: July 25, 2024 Team Status: Inactive Member Role Status Dates Dr. Moreno Donnelly MD Primary Care Provider Acti ve Start: August 02, 2024 End: August 02, 2024 Dr. Peter Ambrocio MD Attending Provider Active Start: August 02, 2024 End: August 02, 2024 Dr. Peter Ambrocio MD Referring Provider Active Start: August 02, 2024 End: August 02, 2024 Team Status: Active Member Role/Relationship Status Dates Dr. Moreno Donnelly MD Primary Care Provider Acti ve Team Status: Inactive Member Role/Relationship Status Dates Dr. Moreno Donnelly MD Primary Care Provider Acti ve Start: May 03, 2024 End: May 03, 2024 Dr. Moreno Donnelly MD Referring Provider Active Start: May 03, 2024 End: May 03, 2024 Dr. Benigno Suárez MD Attending Provider Active Start: May 03, 2024 End: May 03, 2024 Team Status: Inactive Member Role/Relationship Status Dates Dr. Moreno Donnelly MD Primary Care Provider Acti ve Start: May 03, 2024 End: May 03, 2024 Dr. Cisco Dickens MD Attending Provider Active S tart: May 03, 2024 End: May 03, 2024 Team Status: Inactive Member Role/Relationship Status Dates Dr. Moreno Donnelly MD Primary Care Provider Acti ve Start: May 10, 2024 End: May 10, 2024 Dr. Moreno Donnelly MD Attending Provider Active Start: May 10, 2024 End: May 10, 2024 Dr. Moreno Donnelly MD Referring Provider Active Start: May 10, 2024 End: May 10, 2024 Team Status: Inactive Member Role/Relationship Status Dates Dr. Moreno Donnelly MD Primary Care Provider Acti ve Start: May 16, 2024 End: May 16, 2024 Dr. Moreno Donnelly MD Referring Provider Active Start: May 16, 2024 End: May 16, 2024 NEDA Maldonado Attending Provider Active St art: May 16, 2024 End: May 16, 2024 Team Status: Inactive Member Role/Relationship Status Dates Dr. Moreno Donnelly MD Primary Care Provider Acti ve Start: May 23, 2024 End: May 23, 2024 NEDA Maldonado Attending Provider Active St art: May 23, 2024 End: May 23, 2024 NEDA Maldonado Referring Provider Active St art: May 23, 2024 End: May 23, 2024 Team Status: Active Member Role/Relationship Status Dates Dr. Moreno Donnelly MD Primary Care Provider Acti ve Start: May 23, 2024 Dr. Cisco Dickens MD Attending Provider Active S tart: May 23, 2024 NEDA Maldonado Referring Provider Active St art: May 23, 2024 Team Status: Inactive Member Role/Relationship Status Dates Dr. Moreno Donnelly MD Primary Care Provider Acti ve Start: June 14, 2024 End: June 14, 2024 Dr. Benigno Suárez MD Attending Provider Active Start: June 14, 2024 End: June 14, 2024 Dr. Benigno Suárez MD Referring Provider Active Start: June 14, 2024 End: June 14, 2024 Team Status: Inactive Member Role/Relationship Status Dates Dr. Moreno Donnelly MD Primary Care Provider Acti ve Start: July 05, 2024 End: July 05, 2024 Jeanie Arteaga FANS CLERK, FANS CLERK-C Attending Provider Active Start: July 05, 2024 End: July 05, 2024 Jeanie Arteaga FANS CLERK, FANS CLERK-C Referring Provider Active Start: July 05, 2024 End: July 05, 2024 Team Status: Inactive Member Role/Relationship Status Dates Dr. Moreno Donnelly MD Primary Care Provider Acti ve Start: July 19, 2024 End: July 19, 2024 Dr. Moreno Donnelly MD Attending Provider Active Start: July 19, 2024 End: July 19, 2024 Dr. Moreno Donnelly MD Referring Provider Active Start: July 19, 2024 End: July 19, 2024 Team Status: Active Member Role/Relationship Status Dates Dr. Cal Lewis MD Attending Provider Active Start: July 19, 2024 Dr. Moreno Donnelly MD Referring Provider Active Start: July 19, 2024 Team Status: Inactive Member Role/Relationship Status Dates Dr. Moreno Donnelly MD Primary Care Provider Acti ve Start: July 25, 2024 End: July 25, 2024 Dr. Moreno Donnelly MD Attending Provider Active Start: July 25, 2024 End: July 25, 2024 Dr. Moreno Donnelly MD Referring Provider Active Start: July 25, 2024 End: July 25, 2024 Team Status: Inactive Member Role/Relationship Status Dates Dr. Moreno Donnelly MD Primary Care Provider Acti ve Start: August 02, 2024 End: August 02, 2024 Dr. Peter Ambrocio MD Attending Provider Active Start: August 02, 2024 End: August 02, 2024 Dr. Peter Ambrocio MD Referring Provider Active Start: August 02, 2024 End: August 02, 2024 Team Status: Inactive Member Role/Relationship Status Dates Dr. Moreno Donnelly MD Primary Care Provider Acti ve Start: August 22, 2024 End: August 22, 2024 Dr. Moreno Donnelly MD Attending Provider Active Start: August 22, 2024 End: August 22, 2024 Dr. Moreno Donnelly MD Referring Provider Active Start: August 22, 2024 End: August 22, 2024 Team Status: Active Member Role/Relationship Status Dates Dr. Moreno Donnelly MD Primary Care Provider Acti ve Start: August 23, 2024 Dr. Peter Ambrocio MD Attending Provider Active Start: August 23, 2024 Dr. Peter Ambrocio MD Referring Provider Active Start: August 23, 2024 Team Status: Inactive Member Role/Relationship Status Dates Dr. Moreno Donnelly MD Primary Care Provider Acti ve Start: August 23, 2024 End: August 23, 2024 Dr. Peter Ambrocio MD Attending Provider Active Start: August 23, 2024 End: August 23, 2024 Dr. Peter Ambrocio MD Referring Provider Active Start: August 23, 2024 End: August 23, 2024 Team Status: Inactive Member Role/Relationship Status Dates Dr. Moreno Donnelly MD Primary Care Provider Acti ve Start: May 10, 2024 End: May 10, 2024 Dr. Moreno Donnelly MD Attending Provider Active Start: May 10, 2024 End: May 10, 2024 Dr. Morneo Donnelly MD Referring Provider Active Start: May 10, 2024 End: May 10, 2024 Team Status: Inactive Member Role/Relationship Status Dates Dr. Moreno Donnelly MD Primary Care Provider Acti ve Start: May 16, 2024 End: May 16, 2024 Dr. Moreno Donnelly MD Referring Provider Active Start: May 16, 2024 End: May 16, 2024 NEDA Maldonado Attending Provider Active St art: May 16, 2024 End: May 16, 2024 Team Status: Inactive Member Role/Relationship Status Dates Dr. Moreno Donnelly MD Primary Care Provider Acti ve Start: May 23, 2024 End: May 23, 2024 NEDA Maldonado Attending Provider Active St art: May 23, 2024 End: May 23, 2024 NEDA Maldonado Referring Provider Active St art: May 23, 2024 End: May 23, 2024 Team Status: Active Member Role/Relationship Status Dates Dr. Moreno Donnelly MD Primary Care Provider Acti ve Start: May 23, 2024 Dr. Cisco Dickens MD Attending Provider Active S tart: May 23, 2024 NEDA Maldonado Referring Provider Active St art: May 23, 2024 Team Status: Inactive Member Role/Relationship Status Dates Dr. Moreno Donnelly MD Primary Care Provider Acti ve Start: June 14, 2024 End: June 14, 2024 Dr. Benigno Suárez MD Attending Provider Active Start: June 14, 2024 End: June 14, 2024 Dr. Benigno Suárez MD Referring Provider Active Start: June 14, 2024 End: June 14, 2024 Team Status: Inactive Member Role/Relationship Status Dates Dr. Moreno Donnelly MD Primary Care Provider Acti ve Start: July 05, 2024 End: July 05, 2024 Jeanie Arteaga FANS CLERK, FANS CLERK-C Attending Provider Active Start: July 05, 2024 End: July 05, 2024 Jeanie Arteaga NP, FANS CLERK-C Referring Provider Active Start: July 05, 2024 End: July 05, 2024 Team Status: Inactive Member Role/Relationship Status Dates Dr. Moreno Donnelly MD Primary Care Provider Acti ve Start: July 19, 2024 End: July 19, 2024 Dr. Moreno Donnelly MD Attending Provider Active Start: July 19, 2024 End: July 19, 2024 Dr. Moreno Donnelly MD Referring Provider Active Start: July 19, 2024 End: July 19, 2024 Team Status: Active Member Role/Relationship Status Dates Dr. Cal Lewis MD Attending Provider Active Start: July 19, 2024 Dr. Moreno Donnelly MD Referring Provider Active Start: July 19, 2024 Team Status: Inactive Member Role/Relationship Status Dates Dr. Moreno Donnelly MD Primary Care Provider Acti ve Start: July 25, 2024 End: July 25, 2024 Dr. Moreno Donnelly MD Attending Provider Active Start: July 25, 2024 End: July 25, 2024 Dr. Moreno Donnelly MD Referring Provider Active Start: July 25, 2024 End: July 25, 2024 Team Status: Inactive Member Role/Relationship Status Dates Dr. Moreno Donnelly MD Primary Care Provider Acti ve Start: August 02, 2024 End: August 02, 2024 Dr. Peter Ambrocio MD Attending Provider Active Start: August 02, 2024 End: August 02, 2024 Dr. Peter Ambrocio MD Referring Provider Active Start: August 02, 2024 End: August 02, 2024 Team Status: Inactive Member Role/Relationship Status Dates Dr. Moreno Donnelly MD Primary Care Provider Acti ve Start: August 22, 2024 End: August 22, 2024 Dr. Moreno Donnelly MD Attending Provider Active Start: August 22, 2024 End: August 22, 2024 Dr. Moreno Donnelly MD Referring Provider Active Start: August 22, 2024 End: August 22, 2024 Team Status: Inactive Member Role/Relationship Status Dates Dr. Moreno Donnelly MD Primary Care Provider Acti ve Start: August 23, 2024 End: August 23, 2024 Dr. Peter Ambrocio MD Attending Provider Active Start: August 23, 2024 End: August 23, 2024 Dr. Peter Ambrocio MD Referring Provider Active Start: August 23, 2024 End: August 23, 2024 Team Status: Active Member Role/Relationship Status Dates Dr. Moreno Donnelly MD Primary Care Provider Acti ve Start: September 05, 2024 Dr. Moreno Donnelly MD Attending Provider Active Start: September 05, 2024 Dr. Moreno Donnelly MD Referring Provider Active Start: September 05, 2024 Dr. Peter Ambrocio MD Other Provider Active Start: September 05, 2024 Team Status: Inactive Member Role/Relationship Status Dates Dr. Moreno Donnelly MD Primary Care Provider Acti ve Start: September 05, 2024 End: September 05, 2024 Dr. Peter Ambrocio MD Attending Provider Active Start: September 05, 2024 End: September 05, 2024 Dr. Peter Ambrocio MD Referring Provider Active Start: September 05, 2024 End: September 05, 2024 Team Status: Inactive Member Role/Relationship Status Dates Dr. Moreno Donnelly MD Primary Care Provider Acti ve Start: September 06, 2024 End: September 06, 2024 Dr. Genevieve Bailey DO Referring Provider Active Start: September 06, 2024 End: September 06, 2024 Dr. Genevieve Bailey DO Emergency Provider Active Start: September 06, 2024 End: September 06, 2024 Team Status: Inactive Member Role/Relationship Status Dates Dr. Moreno Donnelly MD Primary Care Provider Acti ve Start: September 07, 2024 End: September 07, 2024 Dr. Peter Ambrocio MD Attending Provider Active Start: September 07, 2024 End: September 07, 2024 Dr. Peter Ambrocio MD Referring Provider Active Start: September 07, 2024 End: September 07, 2024 FOR RECORDS PERTAINING TO PATIENTS WHO ARE OR HAVE BEEN ENROLLED IN A CHEMICAL DEPENDENCY/SUBSTANCEABUSE PROGRAM, SOME INFORMATION MAY BE OMITTED. This clinical summary was aggregated from multiple sources. Caution should be exercised in using it in the provision of clinical care. This summary normalizes information from multiple sources, and as a consequence, information in this document may materially change the coding, format and clinical context of patient data. In addition, data may be omitted in some cases. CLINICAL DECISIONS SHOULD BE BASED ON THE PRIMARY CLINICAL RECORDS. [facility] [employer] provides no warranty or guarantee of the accuracy or completeness of information in this document.
[2024-09-08] MEDS: Cefepime HCl 2 GM in 0.9% Normal Saline (100mL MB+) 100 ML IV ×2 (09:00→20:15)
[2024-09-08 09:30] VITALS: BP 118/48; PULSE 106; RESP 17; TEMP 39.3; O2SAT 92
[2024-09-08] MEDS: 0.9% NaCl IVPB Med Flush (250 mL) 15 ML IV (09:30)
--- NOTE | 2024-09-08 11:40 | NURSING ---
At approximately 0930am pt c/o chills, being cold, and achy all over. Pt had stated she had a fever this morning at home before coming in. Temp taken here 102.7. This RN encouraged pt to go to ED to be seen for her temp and to possibly be admitted. Pt states she was recently in the ED and They did nothing for me so I'm not going back. This RN spoke with Hospital Payroll Processor Gamaliel MARTIN and he is aware that pt is refusing to go ED to get assessed.
[2024-09-08 20:00] VITALS: BP 91/61; PULSE 94; RESP 18; TEMP 36.9; O2SAT 99
== END 2024-09-08 21:00 | disposition home or self-care (01) ==
LOC: MEDOUTP 07:51 → MS3 20:06
PROVIDERS: PCP Family Medicine; Referring Provider Internal Medicine Pulmonary Disease; Visit Provider Internal Medicine Pulmonary Disease
DX: J47.9 Bronchiectasis, uncomplicated (principal)
CPT/HCPCS: 96365

== ENCOUNTER 2024-09-09 07:55 | Outpatient (CLI) | payer MEDICARE, OTHER, SELFPAY ==
--- OUTSIDE RECORDS SUMMARY | 2024-09-09 08:00 | XMS RPT_ITS | CCD ---
Author Organization [facility] CliniSyil Care Team Providers Care Powder Worker Name Role Phone Ernie Yusuf Unavailable Unava ilable Ernie Yusuf Unavailable Unava ilable Ernie Yusuf Unavailable Unava ilable UNKNOWN, PCP Unavailable Unavailable KIARA NUGENT) Unavailable Unavailable KIARA NUGENT) Unavailable Unavailable THUAN BURKS Unavailable Unavailable Dr. Ervin Donnelly Primary Care Provider [phone] Dr. Ervin Donnelly Referring Provider [facility] TECH WRITER, TECH WRITER-C Juan Hernandez Attending Provider Dr. Pete Bazzi Attending Provider Dr. Hardik Aragon Attending Provider [phone] Shivam TECH WRITER, TECH WRITER-C Marie Attending Provider [phone] Shivam TECH WRITER, TECH WRITER-C Marie Referring Provider [phone] Dr. Nathaniel Reynoso Admit Provider Dr. Nathaniel Reynoso Referring Provider Dr. Nathaniel Reynoso Other Provider NEDA Conde-Anam Fung Other Provider Dr. Joo Hooks Other Provider Dr. Julien Mitchell Other Provider Mekhi TECH WRITER, TECH WRITER-C Linda Attending Provider Dr. Joo Estes Attending Provider Dr. Joo Estes Other Provider Dr. Julien Mitchell Attending Provider Dr. Ervin Donnelly Primary Care Provider Dr. Ervin Donnelly Referring Provider [facility] TECH WRITER, TECH WRITER-C Juan Hernandez Attending Provider Dr. Pete Bazzi Attending Provider Dr. Hardik Aragon Attending Provider Langley TECH WRITER, TECH WRITER-C Marie Attending Provider Shivam TECH WRITER, TECH WRITER-C Marie Referring Provider Dr. Nathaniel Reynoso Admit Provider Dr. Nathaniel Reynoso Referring Provider Dr. Nathaniel Reynoso Other Provider JOHN Conde Other Provider Dr. Joo Hooks Other Provider Dr. Julien Mitchell Attending Provider Dr. Julien Mitchell Other Provider Dr. Joo Estes Attending Provider Dr. Joo Estes Other Provider Dr. Katleyn Davis Emergency Provider Linnea, Dr. Aby Melo Admit Provider Korjorge, Dr. Aby Melo Attending Provider Korjorge, Dr. Aby Meol Other Provider Vincent, Dr. Jose Angel Rangel [...] Dr. Ervin Donnelly Primary Care Provider Shivam TECH WRITER, TECH WRITER-C Marie Attending Provider [phone] Shivam TECH WRITER, TECH WRITER-C Marie Referring Provider Dr. Ervin Donnelly Primary Care Provider Shivam TECH WRITER, TECH WRITER-C Marie Attending Provider Shivam TECH WRITER, TECH WRITER-C Marie Referring Provider Dr. Ervin Donnelly Referring Provider Dr. Pete Bazzi Attending Provider Pranay TECH WRITER, TECH WRITER-C Adry Attending Provider Dr. Ervin Donnelly Primary Care Provider Moreno Donnelly MD Primary Care Provider KEYON MEADE Attending UnavailNICKY Urias Referring Unavailable MORENO DONNELLY Primary Care UnavailDr. Ervin Dixon Primary Care Provider Dr. Ervin Donnelly Referring Provider Pranay TECH WRITER, TECH WRITER-C Adry Attending Provider Shivam TECH WRITER, TECH WRITER-C Marie Attending Provider [phone] Dr. Pete Bazzi Attending Provider Dr. Ervin Donnelly Primary Care Provider Dr. Ervin Donnelly Referring Provider Dr. Joo Higuera Attending Provider Dr. Ervin Donnelly Primary Care Provider Dr. Ervin Donnelly Referring Provider Dr. Pete Bazzi Attending Provider Dr. Joo Higuera Attending Provider Dr. Nicky Cavanaugh Referring Provider [phone] Moreno Donnelly Primary Care Provider [phone] Dr. Moreno Donnelly Referring Provider Moreno Donnelly MD Primary Care Provider Moreno Donnelly MD Unavailable LINDA RESTREPO Attending Unavailable MORENO DONNELLY Primary Care UnavailLINDA Ford Attending Unavailable MORENO DONNELLY Primary Care UnavailDr. Moreno Dixon MD Primary Care Provider Vikkiorrow TECH WRITER-Jan Mendieta Attending Provider Vikkiorrow TECH WRITER-CJan Referring Provider Dr. Moreno Donnelly MD Attending Provider Dr. Moreno Donnelly MD Referring Provider [phone] Nargisel TECH WRITER-C, Jeanie Attending Provider Lolly CARMONA, Dr. Peter Sales Attending Provider Lolly CARMONA, Dr. Peter Sales Referring Provider Jose Armando CARMONA, Dr. Pelaez Attending Provider Chrissie CARMONA, Dr. Peck Attending Provider Filemon Flood Attending Provider Filemon Flood Referring Provider Jose Armando CARMONA, Dr. Pelaez Referring Provider Cony CARMONA, Dr. Stewart Primary Care Provider Cony CARMONA, Dr. Stewart Attending Provider Cony CARMONA, Dr. Stewart Referring Provider Jose Armando CARMONA, Dr. Pelaez Referring Provider Jenni TECH WRITER-C, Jeanie Referring Provider Cony CARMONA, Dr. Stewart Primary Care Provider Cony CARMONA, Dr. Stewart Attending Provider Cony CARMONA, Dr. Stewart Referring Provider Joshua CARMONA, Dr. Cal Enciso Attending Provider Cony CARMONA, Dr. Stewart Primary Care Provider Cony CARMONA, Dr. Stewart Referring Provider Cony CARMONA, Dr. Stewart Attending Provider [phone] Jenni TECH WRITER-C, Jeanie Attending Provider Lolly CARMONA, Dr. Peter Sales Attending Provider Lolly CARMONA, Dr. Peter Sales Referring Provider Cony CARMONA, Dr. Stewart Primary Care Provider Cony CARMONA, Dr. Stewart Referring Provider Chrissie CARMONA, Dr. Peck Attending Provider Jose Armando CARMONA, Dr. Pelaez Attending Provider [phone] Lolly CARMONA, Dr. Peter Sales Other Provider Lynn HAY, Dr. Vallejo Referring Provider Dr. Genevieve Bailey DO Emergency Provider Cony CARMONA, Dr. Stewart Primary Care Provider Cony CARMONA, Dr. Stewart Referring Provider Cony CARMONA, Dr. Stewart Attending Provider [phone] Cony, Christophzuri Primary Care Unavailable Sibilia, Peter V Attending Unavailable Peter Ambrocio V Referring Unavailable Leonardo, Chalon Referring Unavailable Henry Patterson Attending Unavailable Ranney, Christopher Primary Care Unavailable Ranney, Christopher Primary Care Unavailable Ranney, Christlillyer Attending Unavailable Ranney, Christopher Referring Unavailable Nicky Cavanaugh Referring Unavailable Nicky Cavanaugh Attending Unavailable Ranney, Christopher Primary Care Unavailable [place], Joo Attending Unavailable Davida, Joo Referring Unavailable Ranney, Christopher Primary Care Unavailable Ranney, Christopher Primary Care Unavailable Sibilia, Peter V Attending Unavailable Sibilia, Peter V Referring Unavailable Ranney, Christopher Primary Care Unavailable Rachidney, Christlillyer Attending Unavailable Ranney, Christopher Referring Unavailable [place], Joo Attending Unavailable [place], Joo Referring Unavailable Ranney, Christopher Primary Care Unavailable McMorrow TECH WRITER, Jan Referring Unavailable Ranney, Christopher Primary Care Unavailable McMorrow TECH WRITER, Jan Attending Unavailable Ranney, Christopher Primary Care Unavailable Ranney, Christopher Referring Unavailable Ranney, Christopher Attending Unavailable Ranney, Christopher Primary Care Unavailable Ranney, Christopher Referring Unavailable Ranney, Christopher Attending Unavailable Ranney, Christopher Primary Care Unavailable Ranney, Christopher Referring Unavailable Ranney, Christopher Attending Unavailable Ranney, Christopher Primary Care Unavailable Ranney, Christopher Referring Unavailable Ranney, Christopher Attending Unavailable Jeanie Arteaga Attending Unavailable Ranney, Christopher Primary Care Unavailable Katelyn Davis Attending Unavailable Ranney, Christopher Primary Care Unavailable Nicky Valdivia Attending Unavailable Ranney, Christopher Primary Care Unavailable Suárez, Benigno Referring Unavailable [facility] Care Unavailable Benigno Suárez Attending Unavailable Nicky Cavanaugh Attending Unavailable Verona, Nicky Referring Unavailable [facility] Care Unavailable Granados, Indu Referring Unavailable Garnados, Indu Attending Unavailable [facility] Care Unavailable Demiter, Filemon Referring Unavailable [facility] Primary Care Unavailable Demiter, Filemon Attending Unavailable Davida, Joo Consulting Unavailable [facility] Care Unavailable White, Nathaly L Admitting Unavailable Jopperi, Joo Attending Unavailable You, Peter Consulting Unavailable White, Nathaly L Consulting Unavailable Jopperi, Joo Consulting Unavailable Granados, Indu Attending [facility] Referring Unavailable [facility] Care Unavailable Granados, Indu Referring Unavailable [place], Joo Attending Unavailable [facility] Care Unavailable Granados, Indu Consulting Unavailable [place], Joo Attending Unavailable Granados, Indu Referring Unavailable [facility] Care Unavailable Granados, Indu Attending Unavailable Jopperi, Joo Referring Unavailable White, Nathaly L Attending Unavailable Demiter, Filemon Attending Unavailable [facility] Unavailable [facility] Referring Unavailable [facility] Unavailable Sibilia, Peter V Referring Unavailable Sibilia, Peter V Attending Unavailable Graham Mancini Attending Unavailable [facility] Unavailable Demiter, Filemon Referring Unavailable [facility] Care Unavailable Cisco Dickens Attending Unavailable [place], Joo Attending Unavailable Davida, Joo Referring Unavailable [facility] Care Unavailable Sibilia, Peter V Attending Unavailable Sibilia, Peter V Referring Unavailable [facility] Care Unavailable Nicky Cavanaugh Attending Unavailable Verona, Nicky Referring Unavailable [facility] Care Unavailable Nicky Cavanaugh Attending Unavailable Verona, Nicky Referring Unavailable [facility] Care Unavailable Sibilia, Peter V Attending Unavailable Sibilia, Peter V Referring Unavailable [facility] Care Unavailable Sibilia, Peter V Referring Unavailable Sibilia, Peter V Attending Unavailable [facility] Primary Care Unavailable Sibilia, Peter V Referring Unavailable Sibilia, Peter V Attending Unavailable [facility] Primary Care Unavailable Sibilia, Peter V Referring [facility]available [facility] Unavailable Sibilia, Peter V Attending Unavailable Sibilia, Peter V Attending Unavailable Sibilia, Peter V Referring [facility]available [facility] Unavailable Sibilia, Peter V Referring Unavailable Sibilia, Peter V Attending Unavailable [facility] Primary Care Unavailable Genevieve Bailey Referring Unavailable Genevieve Bailey Attending Unavailable [facility] Primary Care [facility] Unavailable Sibilia, Peter V Attending Unavailable Sibilia, Peter V Referring Unavailable Mao, Nicky Referring Unavailable MaoVijayel Attending Unavailable [facility] Primary Care Unavailable Nathaly Romo Admitting Unavailable Joo Estes Attending Unavailable Joo Higuera Consulting Unavailable [facility] Primary Care Unavailable YouPeter Consulting Unavailable Nathaly Romo Consulting Unavailable You, Peter Referring Unavailable Peter Orta Attending Unavailable [facility] Primary Care Unavailable Sibilia, Peter V Referring Unavailable [facility] Care Unavailable Sibilia, Peter V Attending Unavailable [facility] Primary Care Unavailable Sibilia, Peter V Consulting Unavailable Ranraymond, Brendaner Attending Unavailable Ranraymond, Christlillyer Referring Unavailable MaoVijay schaferel Attending Unavailable Verona, Nicky Referring Unavailable [facility] Primary Care Unavailable Marie Langley Referring Unavailable Marie Langley Attending Unavailable [facility] Primary Care Unavailable [facility] Primary Care Unavailable Sibilia, Peter V Attending Unavailable Sibilia, Peter V Referring Unavailable [facility] Primary Care Unavailable Moreno Donnelly Attending Unavailable Ranraymond, Christopher Referring Unavailable [facility] Unavailable Sibilia, Peter V Attending Unavailable Sibilia, Peter V Referring Unavailable You Peter Attending Unavailable You, Peter Referring Unavailable [facility] Care [facility] Referring Unavailable Graham aMncini Attending Unavailable [facility] Primary Care Unavailable [facility] Primary Care Unavailable RanraymondMoreno Attending Unavailable [facility] Referring Unavailable Marisol Bowling Attending Unavailable [facility] Primary Care Unavailable Indu Granados Attending Unavailable [facility], [facility] Referring Unavailable [facility] Primary Care Unavailable Benigno Suárez Attending Unavailable Ranney, Christopher Primary Care Unavailable Ranraymond, Christopher Referring Unavailable [facility] Unavailable Cisco Dickens Attending Unavailable Joo Higuera Attending Unavailable Ranraymond, Christopher Referring Unavailable [facility], [facility] Primary Care Unavailable Ranraymond, [facility] Primary Care Unavailable Ranney, Christopher Referring Unavailable Ranney, Christopher Attending Unavailable Ranraymond, [facility] Primary Care Unavailable Sibilia, Peter V Attending Unavailable Sibilia, Peter V Referring Unavailable Shankel, Jeanie Referring Unavailable [facility] Unavailable Shankel Jeanie Attending Unavailable Allergies Allergy Classification Reported Allergen(s) Allergy Type Date of Onset Reaction(s) Facility (18 sources) acetaminophen / oxyCODONE; Translations: [OXYCODONE-ACETAMI NOPHEN] Drug Allergy 10-15-19 Other: See Comments [facility] Repository (20 sources) azithromycin; Translations: [AZITHROMYCIN] Drug Allergy 10-15-19 Rash, Itching [facility] Repository (20 sources) clindamycin; Translations: [CLINDAMYCIN] Drug Allergy 10-15-19 Hives [facility] Repository (20 sources) Sulfonamides (Antibiotic); Translations: [SULFA (SULFONAMIDE ANTIBIOTICS)] Propensity to adverse reactions to drug (disorder) 10-15-19 Rash, Itching [facility] Repository (20 sources) NITROFURANTOIN MACROCRYSTALLINE; Translations: [NITROFURANTOIN MACROCRYSTALLINE] Propensity to adverse reactions to drug (disorder) 10-15-19 Other: See Comments [facility] Repository (3 sources) OTHER; Translations: [OTHER] Propensity to adverse reactions (disorder) 10-15-19 AOF [facility] Repository (20 sources) Adhesive agent; Translations: [adhesive] Allergy to substance 05-13-19 SKIN TEARS. PAPER TAPE [place] [facility] (20 sources) Atenolol Drug Allergy 05-13-19 Peripheal edema & cough [facility] (20 sources) Cefuroxime; Translations: [cefuroxime sodium] Drug Allergy 05-13-19 Rash [facility] (20 sources) Corticosteroids; Translations: [Corticosteroids (Glucocorticoids)] Propensity to adverse reactions 05-13-19 Other [facility] (20 sources) DULoxetine Drug Allergy 05-13-19 made me feel really sick [facility] (20 sources) Metoprolol Drug Allergy 05-13-19 Peripheral edema & cough [facility] (20 sources) oxyCODONE; Translations: [oxycodone HCl] Drug Allergy 05-13-19 Vomiting [facility] (15 sources) zenicef [Other] Propensity to adverse reactions 10-15-19 Rash, Itching [facility] (12 sources) Chlorhexidine Drug Allergy 05-17-19 [facility] (12 sources) Isopropyl Alcohol Drug Allergy 05-17-19 [facility] (11 sources) atorvastatin Drug Allergy 06-13-19 [facility] (1 source) Atenolol Drug Allergy 09-08-19 [facility] Rep[facility] (1 source) atorvastatin Drug Allergy 09-08-19 [facility] Rep[facility] (1 source) Chlorhexidine Drug Allergy 09-08-19 [facility] Rep[facility] (1 source) DULoxetine Drug Allergy 09-08-19 [facility] Rep[facility] (1 source) Isopropyl Alcohol Drug Allergy 09-08-19 [facility] Rep[facility] (1 source) Metoprolol Drug Allergy 09-08-19 [facility] Repository Medications Current Medications Medication Drug Class(es) Dates Sig (Normalized) Sig (Original) bifidobacterium animalis [id number] unt / bifidobacterium longum [id number] unt / lactobacillus acidophilus [id number] unt oral capsule (15 sources) Start: 07-19-2019 take 1 capsule by mouth once daily L.acidoph-B.lac tis-B.longum (FLORAJEN3) 460 mg (7.5-6- 1.5 bill. cell) cap Indications: Acute cystitis with hematuria Take 1 capsule by mouth once daily. 30 capsule 07/19/2019 Active Comment on above: Take 1 capsule by [facility] once daily. cholecalciferol 0.05 mg oral capsule [...] Active 2 PUFF INHALATION TWICE A DAY March 01, 2022 11:03am Start: 06-26-2021 End: [...] 2 PUFF INHALATION TWICE A DAY February 19, 2021 8:58am June 26, 2021 [...] TWICE A DAY 1 February 05, 2020 1:00am March 11, 2020 [...] INHALATION TWICE A DAY October 23, 2018 10:19am May 02, 2019 [...] 1 spray(s) nasal route twice daily Ipratropium [place] Discontinued 2 SPRAY INTRANASAL TWICE A DAY March 01, 2022 12:05pm March 10, 2023 11:44am administer into each nostril Start: 05-22-2021 End: 06-26-2021 take 1 spray(s) nasal route twice daily Ipratropium [place] Discontinued 2 SPRAY INTRANASAL TWICE A DAY May 22, 2021 9:27am June 26, 2021 3:39pm administer into each nostril Start: 05-22-2021 take 1 spray(s) nasa l route twice daily Ipratropium [place] Active 2 SPRAY INTRANASAL TWICE A DAY May 22, 2021 9:27am administer into each nostril Start: 05-22-2021 End: 06-26-2021 take 1 spray(s) nasal route twice daily Ipratropium [place] Discontinued 2 SPRAY INTRANASAL TWICE A DAY May 21, 2021 11:00pm June 26, 2021 2:39pm administer into each nostril Start: 05-22-2021 End: 06-26-2021 take 1 spray(s) nasal route twice daily Ipratropium [place] Discontinued 2 SPRAY INTRANASAL TWICE A DAY [...] 1:00am latanoprost 0.05 mg/ml ophth almic solution (19 sources) Prostaglandin Analog Start: 03-10-2023 Start: 03-10-2023 [...] rosuvastatin calcium 5 mg or al tablet (11 sources) HMG-CoA Reductase Inhibitor Start: 06-08-2024 Semaglutide [...] End: 02-20-2013 take 2 tablets by mo uth twice daily acetaminophen (TYLENOL) 500 mg tablet [...] tablet by mouth every six hours Hydrocodone-Acetaminophen ([place]) 5-325 mg Tablet Discontinued 1 TABLET PO EVERY 6 HOURS April 01, 2021 1:00am June 26, 2021 12:20pm Comment on above: Take 1-2 tablets by mouth every 6 hours as needed. [id number] 200 actuat albuter ol 0.09 mg/actuat metered [...] 2018 10:48am October 23, 2018 10:20am Start: 10-05-2017 [...] mg / clavulanate 125 mg oral tablet (12 sources) Penicillin-class Antibacterial Start: 01-28-2024 End: 05-03-2024 apixaban 5 mg oral tablet (20 sources) Factor Xa Inhibitor Start: 12-30-2016 End: 05-16-2024 Comment on above: Take 1 tablet by audie twice daily. ascorbic acid 500 mg oral [...] on above: Take 1 capsule by mo [facility] four times daily for 10 days. ciprofloxacin 500 mg oral tablet (12 sources) Quinolone Antimicrobial Start: 07-19-2023 End: 08-04-2023 [...] on above: Take 2 capsules by [facility] once daily. docusate sodium 50 mg / sennosides, [facility] 8.6 mg oral tablet (20 sources) Start: [...] on above: Take 1 tablet by audie every 12 hours. fluconazole 150 mg oral tablet (10 sources) Azole Antifungal Start: 12-23-2021 End: 10-29-2022 fluconazole (DIFLUCAN) 150 mg tablet Take one tablet by mouth once. Then repeat every 3 days for 3 doses. 3 tablet 0 12/23/2021 10/29/2022 Discontinued Comment on above: Take one tablet by [facility] once. Then repeat every 3 days for [...] (FLONASE) 50 mcg/actuation nasal spray Use 1 [place] in each nostril twice daily. Active Comment on above: Use 1 [place] in each nostril twice daily. 120 actuat [...] (20 sources) Insulin Analog Start: 017 End: inject 5 [IU] by subcutaneous injection at [...] units and Notify Provider . lactobacillus acidophilus [id number] unt / pectin 100 mg oral tablet (20 sources) Start: 07-14-2021 End: 11-16-2022 Start: 07-14-2021 End: 11-16-2022 take 1 tablet by mouth twice daily Acidophilus-Pectin, [place] Discontinued 1 TABLET PO TWICE A DAY 0 July 14, 2021 12:00am November 16, 2022 9:56am Start: 07-14-2021 Start: 09-19-2020 End: 03-25-2021 take 1 tablet by mouth twice daily Acidophilus-Pectin, [place] Discontinued 1 TABLET PO TWICE A DAY September 19, 2020 3:01pm March 25, 2021 12:26pm Start: 12-20-2019 End: 03-25-2021 Start: 12-20-2019 End: 09-19-2020 take 1 tablet by mouth three times daily Acidophilus-Pectin, [place] Discontinued 1 TABLET PO THREE TIMES A [...] 10 mg by mouth daily at bedtime. Skzqvzkjkeww-Tu-Mu on-Minerals (20 sources) Start: 02-15-2018 End: 01-25-2019 Odxukajjfexn-Au-Xbq n-Minerals Discontinued 1 EACH PO DAILY February 15, 2018 2:01am January 25, 2019 12:56pm Start: 02-15-2018 End: 01-25-2019 Zsmjqzkuoxjp-Gs-Qgcw-Mineral s Discontinued 1 EACH PO DAILY February 15, 2018 12:00am January 25, 2019 11:56am Start: 02-15-2018 End: 01-25-2019 Exbyfhevcvbb-Bw-Exex-Mineral s Discontinued 1 EACH PO DAILY February 15, 2018 1:00am January 25, 2019 12:56pm naproxen sodium 220 mg oral tablet (20 sources) Nonsteroidal Anti-inflammatory Drug Start: 01-12-2013 End: 11-20-2016 Nut.Tx.Comp. Immune Systm,Reg ([facility]) 0.08-1.4 gram-kcal/mL Liquid (18 sources) Start: 06-26-2021 End: 06-26-2021 Nut.Tx.Comp. Immune Systm,Reg ([facility]) 0.08-1.4 gram-kcal/mL Liquid Discontinued 237 ML PO 3 TIMES DAILY WITH MEALS 0 June 26, 2021 12:21pm June 26, 2021 3:39pm Start: 06-26-2021 Nut.Tx.Comp. I mmune Systm,Reg ([facility]) 0.08-1.4 gram-kcal/mL Liquid Active 237 ML PO 3 TIMES DAILY WITH MEALS 0 June 26, 2021 12:21pm Start: 06-26-2021 End: 06-26-2021 Allen.Tx.Comp. Immune Systm,Re g ([facility]) 0.08-1.4 gram-kcal/mL Liquid Discontinued 237 ML PO 3 TIMES DAILY WITH MEALS 0 June 25, 2021 11:00pm June 26, 2021 2:39pm Start: 06-26-2021 End: 06-26-2021 Nut.Tx.Comp. Immune Systm,Re g ([facility]) 0.08-1.4 gram-kcal/mL Liquid Discontinued 237 ML PO 3 TIMES DAILY WITH MEALS 0 June 26, 2021 12:00am June 26, 2021 3:39pm Nut.Tx.Comp. Immune Systm,Re g ([facility]) 0.08-1.4 gram-kcal/mL liquid (17 sources) Start: 06-26-2021 End: 07-14-2021 Nut.Tx.Comp. Immune Systm,Re [...] daily. oxyCODONE hydrochloride 5 mg oral tablet (12 sources) Opioid Agonist Start: 01-28-2024 End: 05-03-2024 [...] three times daily as needed. polymyxin b [id number] unt/ml / trimethoprim 1 mg/ml ophthalmic solution [...] daily. sucralfate 1000 mg oral tabl et (12 sources) Aluminum Complex Start: 01-24-2024 End: 05-03-2024 sulfamethoxazole 800 mg / trimethoprim 160 mg oral tablet (13 sources) Dihydrofolate Reductase Inhibitor Antibacterial, Sulfonamide Antimicrobial Start: 05-17-2023 End: 07-19-2023 Start: 05-17-2023 take 1 tablet by audie th twice daily Sulfamethoxazole-Trimethoprim (Bactrim D s) 800-160 [...] Active Problems Problem Classification Problem Date Documented Da te Episodic/Chronic Acute and unspecified renal failure (20 sources) Injury of kidney; Translations: [Acute kidney failure, unspecified] 07-11-2021 Episodic Allergic reactions (2 sources) Vulval eczema; Translations: [Dermatitis, unspecified] Episodic Asthma (20 sources) Moderate persistent asthma with (acute) exacerbation; Translations: [Unspecified asthma with (acute) exacerbation] Onset: 7 Chronic Asthma (1 source) Asthma Onset: 7 Bacterial infection; unspecified site (4 sources) Bacterial infection due to Pseudomonas; Translations: [...] obstructive pulmonary disease with (acute) exacerbation] Onset: 5 Chronic Chronic ulcer of skin (18 sources) 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; Translations: [Non-pressure chronic ulcer of right ankle with fat layer exposed] Onset: 5 05-10-2023 Chronic Congestive heart failure; nonhypertensive (20 sources) Chronic [...] [Asthenia] Onset: 7 Episodic Nausea and vomiting (4 sources) Nausea and vomiting; Translations: [Nausea with vomiting, unspecified] 09-06-2024 Episodic Nutritional deficiencies (20 sources) Vitamin D deficiency; Translations: [Vitamin D deficiency, unspecified] Onset: 7 Chronic Osteoarthritis (20 sources) Osteoarthritis of left hip joint; Translations: [Unilateral primary osteoarthritis, left hip] Chronic Osteoporosis (1 source) Age-related osteoporosis without current pathological fracture; Translations: [Age-related osteoporosis without current pathological fracture] Onset: Chronic Other acquired deformities (20 sources) Scoliosis of lumbar spine; Translations: [Scoliosis, unspecified] Chronic Other acquired deformities (1 source) Scoliosis, unspecified; Translations: [Scoliosis, unspecified] Onset: 5 Chronic Other acquired deformities (19 sources) Lumbar spondylolisthesis; Translations: [Spondylolisthesis, lumbar region] 05-04-2024 Episodic Other acquired deformities (19 sources) Leg length inequality; Translations: [Unequal limb length (acquired), unspecified site] 05-04-2024 Episodic Other acquired deformities (1 source) Spondylolisthesis, lumbar region; Translations: [Spondylolisthesis, lumbar region] Onset: 5 Episodic Other aftercare (20 sources) Long-term current use of anticoagulant; Translations: [jail (current) use of anticoagulants] 05-08-2022 Episodic Other aftercare (20 sources) Long-term current use of drug therapy; Translations: [Other usp (current) drug therapy] 05-31-2022 Episodic Other bone [...] Chronic Other bone disease and musculoskeletal deformities (19 sources) Osteopenia; Translations: [Other specified disorders of bone density and structure, unspecified site] 05-04-2024 Episodic Other circulatory disease (12 sources) Vasculitis; Translations: [Arteritis, unspecified] 01-21-2024 Chronic [...] leg; Translations: [Pain in left leg] Onset: Episodic Other diseases of veins and lymphatics (14 sources) Peripheral venous insufficiency; Translations: [Venous insufficiency [...] Translations: [Cough] Episodic Other lower respiratory disease (11 sources) Nodule of lung; Translations: [Solitary pulmonary [...] respiratory system] Episodic Other lower respiratory disease (12 sources) Respiratory insufficiency; Translations: [Other abnormalities of breathing] 08-04-2023 Episodic Other lower respiratory disease (12 sources) Hypoxia; Translations: [Hypoxemia] 05-16-2024 Episodic Other nervous system disorders (1 source) Myopathy, unspecified; Translations: [Myopathy, unspecified] Onset: 7 Chronic Other nervous system disorders (1 source) Other chronic pain; Translations: [Chronic pain of left ankle] Onset: 3 Chronic Other nervous system disorders (19 sources) Neuropathy; Translations: [Polyneuropathy, unspecified] 05-04-2024 Chronic [...] of upper respiratory tract, unspecified] Onset: Episodic Peripheral and visceral atherosclerosis (7 sources) Peripheral vascular disease; Translations: [Peripheral vascular disease, unspecified] Chronic Phlebitis; thrombophlebitis and thromboembolism (14 sources) Deep venous thrombosis; Translations: [Acute embolism and thrombosis of unspecified deep veins of unspecified lower extremity] Episodic Pneumonia (1 source) Pneumonia Onset: 7 [...] Septic shock; Translations: [Sepsis, unspecified organism] Episodic Thyroid disorders (20 sources) Nontoxic single [...] / L89.153(ICD-10) Onset: 7 Unclassified (1 source) jail (current) use of antithrombotics/antipl atelets / Z79.02(ICD-10) Onset: 7 Unclassified (1 source) [...] / M54.16(ICD-10) Onset: 7 Unclassified (1 source) 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) [...] pain or lower extremity pain] Onset: 5 Past or Other Problems Problem Classification Problem Date Documented Date Episodic/Chronic Abdominal hernia (9 sources) Umbilical hernia; Translations: [Umbilical hernia without obstruction or gangrene] Onset: 3 Resolved: 7 12-23-2016 Episodic Aortic and peripheral arterial embolism or thrombosis (2 sources) Vascular disorder; Translations: [Embolism and thrombosis of unspecified artery] Onset: 6 Resolved: 7 12-23-2016 Chronic Biliary tract disease (2 sources) Disorder of gallbladder; Translations: [Other specified diseases of gallbladder] Onset: 6 Resolved: 7 12-23-2016 Episodic Chronic obstructive pulmonary disease and bronchiectasis (1 source) Bronchitis, not specified as acute or chronic; Translations: [Bronchitis, not specified as acute or chronic] Onset: 7 Episodic Coagulation and hemorrhagic disorders (13 sources) Purpuric rash; Translations: [Other nonthrombocytopenic purpura] Onset: 5 01-21-2024 Episodic Complications of surgical procedures or medical care (20 sources) Wound dehiscence; Translations: [Disruption of external operation (surgical) wound, not elsewhere classified, initial encounter] Onset: 4 Episodic Diabetes mellitus without complication (1 source) Hyperglycemia, unspecified; Translations: [Hyperglycemia, unspecified] Onset: 7 Episodic External Injury - Adverse effects of medical drugs (1 source) Drug-induced myopathy; Translations: [Drug-induced myopathy] Onset: 7 Episodic Genitourinary symptoms and ill-defined conditions (1 source) Frequency of micturition; Translations: [Frequency of micturition] Onset: 5 Episodic Other aftercare (1 source) Encounter for follow-up examination after completed treatment for conditions other than malignant neoplasm; Translations: [Encounter for follow-up examination after completed treatment for conditions other than malignant neoplasm] Onset: 5 Episodic Other diseases of veins and lymphatics (5 sources) Venous insufficiency (chronic) (peripheral); Translations: [Venous (peripheral) insufficiency, unspecified] Onset: 4 05-15-2023 Episodic Other gastrointestinal disorders (1 source) Diarrhea, unspecified; Translations: [Diarrhea, unspecified] Onset: 4 Episodic Other injuries and conditions due to external causes (2 sources) Local infection of wound; Translations: [Other injury of unspecified body region, initial encounter] Onset: 3 Resolved: 7 12-23-2016 Episodic Other non-traumatic joint disorders (4 sources) Pain in right ankle and joints of right foot; Translations: [Pain in left ankle and joints of left foot] Onset: 7 Episodic Other screening for suspected conditions (not mental disorders or infectious disease) (4 sources) Patient encounter status; Translations: [Encounter for screening mammogram for malignant neoplasm of breast] Onset: 8 Resolved: 7 Episodic Other upper respiratory infections (14 sources) Acute upper respiratory infection; Translations: [Acute upper respiratory infection, unspecified] Onset: 4 02-01-2024 Episodic Pneumonia (20 sources) Pneumonia due to Pseudomonas; Translations: [Pneumonia due to Pseudomonas] Onset: 7 Episodic Residual codes; unclassified (1 source) Localized edema; Translations: [Localized edema] Onset: 4 Episodic Skin and subcutaneous tissue infections (20 sources) Cellulitis of lower limb; Translations: [Cellulitis of left lower limb] Onset: 4 07-11-2021 Episodic Spondylosis; intervertebral disc disorders; other back problems (3 sources) Low back pain; Translations: [Neck pain] Onset: 7 Episodic Urinary tract infections (20 sources) Acute urinary tract infection; Translations: [Urinary tract infection, site not specified] Onset: 4 07-11-2021 Episodic Results Test Name Value Interpretation Reference Range Facility Absolute lymphocyte countOrd ered By: Genevieve Bailey on 09-06-2024 Lymphocytes Auto (Unsp spec) [#/Vol] 0.49 10*3/uL Low 0.83-4.51 [facility] Activated partial thrombopla stin time (aPTT) in platelet poor plasma by coagulation aOrdered By: Genevieve Bailey on 09-06-2024 aPTT Coag (PPP) [Time] 31.1 s 24.1-36.2 [facility] Anion gap in Serum or Plasma Ordered By: Genevieve Bailey on 09-06-2024 Anion gap [Moles/Vol] 15 mmol/L 5-15 [facility] Automated lymphocyte count a s percentage of total leukocytesOrdered By: Genevieve Bailey on 09-06-2024 Lymphocytes/100 WBC Auto (Unsp spec) 5.0 % Low 19-41 [facility] BUN/creatinine ratioOrdered By: Genevieve Bailey on 09-06-2024 Urea nitrogen/Creatinine [Mass ratio] 15.1 mg/mg 10-20 [facility] Basophil percentageOrdered B y: Genevieve Bailey on 09-06-2024 Basophils/100 WBC (Bld) 0.2 % 0-1 [facility] Bilirubin Test strip Ql (U)O rdered By: Genevieve Bailey on 09-06-2024 Bilirubin Ql (U) Negative Negative [facility] Bilirubin, totalOrdered By: Genevieve Bailey on 09-06-2024 Bilirubin [Mass/Vol] 0.40 mg/dL 0.00-1.30 [facility] Carbon dioxide, total [Moles /volume] in Central venous bloodOrdered By: Genevieve Bailey on 09-06-2024 CO2 [Moles/Vol] 21.9 mmol/L 21.0-32.0 [facility] Chloride assayOrdered By: Didier Bailey on 09-06-2024 Chloride [Moles/Vol] 107 mmol/L 98-108 [facility] Eosinophil percentageOrdered By: Genevieve Bailey on 09-06-2024 Eosinophils/100 WBC (Bld) 0.9 % 0-5 [facility] Erythrocyte distribution wid th ratioOrdered By: Genevieve Bailey on 09-06-2024 Erythrocyte distribution width (RBC) [Ratio] 14.9 % High 11.6-14.6 [facility] Erythrocyte distribution wid th standard deviationOrdered By: Genevieve Bailey on 09-06-2024 Erythrocyte distribution width (RBC) [Ratio] 51.6 fl High 35.1-43.9 [facility] Glomerular filtration rate ( GFR) estimation/1.73 sq m using serum, plasma, or whole bOrdered By: Genevieve Bailey on 09-06-2024 GFR/1.73 sq M.predicted among non-blacks MDRD (S/P/Bld) [Vol rate/Area] 45 mL/min/{1.73_m2} Low >60 [facility] Hematocrit Auto (Bld) [Volum e fraction]Ordered By: Genevieve Bailey on 09-06-2024 Hematocrit (Bld) [Volume fraction] 36.0 % Low 37-47 [facility] Hemoglobin measurementOrdere d By: Genevieve Bailey on 09-06-2024 Hemoglobin (Bld) [Mass/Vol] 11.2 g/dL Low 12.0-15.0 [facility] Immature granulocytes/100 WB C Auto (Bld)Ordered By: Genevieve Bailey on 09-06-2024 Immature granulocytes/100 WBC (Bld) 0.400 % 0.0-0.9 [facility] Influenza virus A and B and SARS-CoV-2 (COVID-19) and Respiratory syncytial virus RNAOrdered By: Genevieve Bailey on 09-06-2024 SARS-CoV-2 (COVID-19) RNA SUSHMA+probe Ql (Unsp spec) [facility] Ketones Test strip Ql (U)Ord ered By: Genevieve Bailey on 09-06-2024 Ketones Ql (U) Negative Negative [facility] MCV (mean corpuscular volume ) determinationOrdered By: Genevieve Bailey on 09-06-2024 MCV (RBC) [Entitic vol] 94.0 fL 81-99 [facility] Mean corpuscular hemoglobin (MCH) determinationOrdered By: Genevieve Bailey on 09-06-2024 MCH (RBC) [Entitic mass] 29.2 pg 27.0-32.0 [facility] Monocyte percentageOrdered B y: Genevieve Bailey on 09-06-2024 Monocytes/100 WBC (Bld) 4.6 % 0-10 [facility] Mucus LM Ql (Urine sed)Order ed By: Genevieve Bailey on 09-06-2024 Mucus Ql (Urine sed) 0 SEEN /hpf [facility] Neutrophil percentageOrdered By: Genevieve Bailey on 09-06-2024 Neutrophils/100 WBC (Bld) 88.9 % High 47-70 [facility] Nitrite Test strip Ql (U)Ord ered By: Genevieve Bailey on 09-06-2024 Nitrite Ql (U) Negative Negative [facility] No Panel InformationOrdered By: Genevieve Bailey on 09-06-2024 17 U/L <32 [facility] Platelet countOrdered By: Didier Bailey on 09-06-2024 Platelets (Bld) [#/Vol] 437 10*3/uL 150-450 [facility] Potassium measurement (mass/ volume)Ordered By: Genevieve Bailey on 09-06-2024 Potassium (Unsp spec) [Mass/Vol] 3.5 mmol/L 3.3-5.1 [facility] Protein Test strip Ql (U)Ord ered By: Genevieve Bailey on 09-06-2024 Protein Ql (U) 30 mg/dl High Negative [facility] Prothrombin timeOrdered By: Genevieve Bailey on 09-06-2024 PT Coag (PPP) [Time] 16.9 s High 11.7-14.9 [facility] RBC Auto (Bld) [#/Vol]Ordere d By: Genevieve Bailey on 09-06-2024 RBC (Bld) [#/Vol] 3.83 10*6/uL Low 4.2-5.4 [facility] Serum creatinine measurement (mass/volume)Ordered By: Genevieve Bailey on 09-06-2024 Creatinine [Mass/Vol] 1.29 mg/dL High 0.70-1.20 [facility] Serum globulin measurementOr dered By: Genevieve Bailey on 09-06-2024 Globulin (S) [Mass/Vol] 3.7 g/dL 2.2-4.2 [facility] Serum glucose measurement (m ass/volume)Ordered By: Genevieve Bailey on 07-24-2025 Glucose [Mass/Vol] 102 mg/dL High 70-99 [facility] Serum or plasma alanine castro otransferase (ALT) measurementOrdered By: Genevieve Bailey on 09-06-2024 ALT [Catalytic activity/Vol] U/L <35 [facility] Serum or plasma albumin nga urement (mass/volume)Ordered By: Genevieve Bailey on 09-06-2024 Albumin [Mass/Vol] 3.5 g/dL 3.4-4.8 [facility] Serum or plasma albumin/glob ulin mass ratioOrdered By: Genevieve Bailey on 09-06-2024 Albumin/Globulin [Mass ratio] 1.0 {ratio} 0.9-2.4 [facility] Serum or plasma alkaline heidy sphatase measurementOrdered By: Genevieve Bailey on 09-06-2024 ALP [Catalytic activity/Vol] 98 U/L 35-104 [facility] Serum or plasma calcium nga urement (mass/volume)Ordered By: Genevieve Bailey on 09-06-2024 Calcium [Mass/Vol] 9.3 mg/dL 7.6-11.0 [facility] Serum or plasma creatine kin ase activityOrdered By: Genevieve Bailey on 09-06-2024 CK [Catalytic activity/Vol] 41 U/L 24-195 [facility] Serum or plasma urea nitroge n measurement (mass/volume)Ordered By: Genevieve Bailey on 09-06-2024 Urea nitrogen [Mass/Vol] 20 mg/dL High 4-19 [facility] Sodium levelOrdered By: Juli Bailey on 09-06-2024 Sodium [Moles/Vol] 144 mmol/L 133-145 [facility] Squamous epithelial cells de tection in urine sediment by light microscopyOrdered By: Genevieve Bailey on 09-06-2024 Epithelial cells.squamous LM Ql (Urine sed) 0 SEEN /hpf 5-10 [facility] Total proteinOrdered By: Megan Bailey on 09-06-2024 Protein [Mass/Vol] 7.2 g/dL 5.9-8.4 [facility] Transitional cells detection in urine sediment by light microscopyOrdered By: Genevieve Bailey on 07-24-2025 Transitional cells LM Ql (Urine sed) 0-5 SEEN /hpf 0-5 [facility] Urine clarityOrdered By: Megan Bailey on 09-06-2024 Clarity (U) Clear Clear [facility] Urine color determinationOrd ered By: Genevieve Bailey on 09-06-2024 Color (U) Yellow Yellow [facility] Urine cultureOrdered By: Megan Bailey on 09-06-2024 Bacteria identified Cx Nom (U) Culture exhibits no growth. [facility] Urine glucose detectionOrder ed By: Genevieve Bailey on 09-06-2024 Glucose Ql (U) Normal mg/dl Normal [facility] Urine leukocyte esterase det ection by dipstickOrdered By: Genevieve Bailey on 09-06-2024 Leukocyte esterase Test strip Ql (U) 25 /ul High Negative [facility] Urine pHOrdered By: Genevieve gonzales on 09-06-2024 pH (U) 6.0 [pH] 5.0 - 8.0 [facility] Urine sediment bacteria coun t by microscopy (number/high power field)Ordered By: Genevieve Bailey on 09-06-2024 Bacteria LM.HPF (Urine sed) [#/Area] 0 /[HPF] None Seen [facility] Urine specific gravity measu rementOrdered By: Genevieve Bailey on 09-06-2024 Specific gravity (U) [Rel density] 1.015 1.002-1.03 0 [facility] Urine urobilinogen measureme ntOrdered By: Genevieve Bailey on 09-06-2024 Urobilinogen Ql (U) Normal mg/dl Normal [facility] White blood cell (WBC) count Ordered By: Genevieve Bailey on 09-06-2024 WBC (Bld) [#/Vol] 9.8 10*3/uL 4.4-11.0 [facility] White blood cell countOrdere d By: Genevieve Bailey on 09-06-2024 White blood cell count 0-5 SEEN /hpf 0-5 [facility] Absolute lymphocyte countOrd ered By: Moreno Donnelly on 09-05-2024 Lymphocytes Auto (Unsp spec) [#/Vol] 1.67 10*3/uL 0.83-4.51 [facility] Albumin Elph [Mass/Vol]Order ed By: Moreno Donnelly on 09-05-2024 Albumin [Mass/Vol] 2.9 g/dL 2.9-4.4 [facility] Anion gap in Serum or Plasma Ordered By: Moreno Donnelly on 09-05-2024 Anion gap [Moles/Vol] 15 mmol/L 5-15 [facility] Automated lymphocyte count a s percentage of total leukocytesOrdered By: Moreno Donnelly on 09-05-2024 Lymphocytes/100 WBC Auto (Unsp spec) 19.2 % 19-41 [facility] BUN/creatinine ratioOrdered By: Moreno Donnelly on 09-05-2024 Urea nitrogen/Creatinine [Mass ratio] 21.4 mg/mg High 10-20 [facility] Basophil percentageOrdered B y: Moreno Donnelly on 09-05-2024 Basophils/100 WBC (Bld) 0.5 % 0-1 [facility] Bilirubin, totalOrdered By: Moreno Donnelly on 09-05-2024 Bilirubin [Mass/Vol] 0.23 mg/dL 0.00-1.30 [facility] Carbon dioxide, total [Moles /volume] in Central venous bloodOrdered By: Moreno Donnelly on 09-05-2024 CO2 [Moles/Vol] 22.6 mmol/L 21.0-32.0 [facility] Chloride assayOrdered By: Sussy Donnelly on 09-05-2024 Chloride [Moles/Vol] 105 mmol/L 98-108 [facility] Eosinophil percentageOrdered By: Moreno Donnelly on 09-05-2024 Eosinophils/100 WBC (Bld) 1.6 % 0-5 [facility] Erythrocyte distribution wid th ratioOrdered By: Moreno Donnelly on 09-05-2024 Erythrocyte distribution width (RBC) [Ratio] 14.6 % 11.6-14.6 [facility] Erythrocyte distribution wid th standard deviationOrdered By: Moreno Donnelly on 09-05-2024 Erythrocyte distribution width (RBC) [Ratio] 49.6 fl High 35.1-43.9 [facility] Erythrocyte sedimentation ra teOrdered By: Moreno Donnelly on 09-05-2024 ESR (Bld) [Velocity] 24 mm/h 0-30 [facility] Folate [Mass/volume] in Seru m or PlasmaOrdered By: Moreno Donnelly on 09-05-2024 Folate [Mass/Vol] 13.10 ng/mL 4.60-34.80 [facility] Glomerular filtration rate ( GFR) estimation/1.73 sq m using serum, plasma, or whole bOrdered By: Moreno Donnelly on 09-05-2024 GFR/1.73 sq M.predicted among non-blacks MDRD (S/P/Bld) [Vol rate/Area] 40 mL/min/{1.73_m2} Low >60 [facility] Hematocrit Auto (Bld) [Volum e fraction]Ordered By: Moreno Donnelly on 09-05-2024 Hematocrit (Bld) [Volume fraction] 34.0 % Low 37-47 [facility] Hemoglobin measurementOrdere d By: Moreno Donnelly on 09-05-2024 Hemoglobin (Bld) [Mass/Vol] 10.5 g/dL Low 12.0-15.0 [facility] Immature granulocytes/100 WB C Auto (Bld)Ordered By: Moreno Donnelly on 09-05-2024 Immature granulocytes/100 WBC (Bld) 0.800 % 0.0-0.9 [facility] Iron measurement (mass/mass) Ordered By: Moreno Donnelly on 09-05-2024 Iron (Unsp spec) [Mass/Mass] 44 ug/dL Low 50-170 [facility] MCV (mean corpuscular volume ) determinationOrdered By: Moreno Donnelly on 09-05-2024 MCV (RBC) [Entitic vol] 93.2 fL 81-99 [facility] Mean corpuscular hemoglobin (MCH) determinationOrdered By: Moreno Donnelly on 09-05-2024 MCH (RBC) [Entitic mass] 28.8 pg 27.0-32.0 [facility] Monocyte percentageOrdered B y: Moreno Donnelly on 09-05-2024 Monocytes/100 WBC (Bld) 7.1 % 0-10 [facility] Neutrophil percentageOrdered By: Moreno Donnelly on 09-05-2024 Neutrophils/100 WBC (Bld) 70.8 % High 47-70 [facility] No Panel InformationOrdered By: Moreno Donnelly on 09-05-2024 Addendum Document Comment . [facility] 16 U/L <32 [facility] Platelet countOrdered By: Sussy Donnelly on 09-05-2024 Platelets (Bld) [#/Vol] 479 10*3/uL High 150-450 [facility] Potassium measurement (mass/ volume)Ordered By: Moreno Donnelly on 09-05-2024 Potassium (Unsp spec) [Mass/Vol] 4.0 mmol/L 3.3-5.1 [facility] Protein Fractions Elph [Inte rp]Ordered By: Moreno Donnelly on 09-05-2024 Protein Fractions [Interp] Comment . [facility] RBC Auto (Bld) [#/Vol]Ordere d By: Moreno Donnelly on 09-05-2024 RBC (Bld) [#/Vol] 3.65 10*6/uL Low 4.2-5.4 [facility] Serum albumin to globulin ra moody by protein electrophoresisOrdered By: Moreno Donnelly on 09-05-2024 Albumin/Globulin Elph [Mass ratio] 0.8 0.7-1.7 [facility] Serum creatinine measurement (mass/volume)Ordered By: Moreno Donnelly on 09-05-2024 Creatinine [Mass/Vol] 1.40 mg/dL High 0.70-1.20 [facility] Serum globulin measurementOr dered By: Moreno Donnelly on 09-05-2024 Globulin (S) [Mass/Vol] 3.7 g/dL 2.2-4.2 [facility] Serum globulin measurement ( mass/volume)Ordered By: Moreno Donnelly on 09-05-2024 Globulin (S) [Mass/Vol] 3.8 g/dL 2.2-3.9 [facility] Serum glucose measurement (m ass/volume)Ordered By: Moreno Donnelly on 09-05-2024 Glucose [Mass/Vol] 78 mg/dL 70-99 [facility] Serum or plasma C reactive p rotein measurement (mass/volume)Ordered By: Moreno Donnelly on 09-05-2024 CRP [Mass/Vol] 34.90 mg/L High 0.0-3.0 [facility] Serum or plasma alanine castro otransferase (ALT) measurementOrdered By: Moreno Donnelly on 09-05-2024 ALT [Catalytic activity/Vol] 7 U/L <35 [facility] Serum or plasma albumin nga urement (mass/volume)Ordered By: Moreno Donnelly on 09-05-2024 Albumin [Mass/Vol] 3.6 g/dL 3.4-4.8 [facility] Serum or plasma albumin/glob ulin mass ratioOrdered By: Moreno Donnelly on 09-05-2024 Albumin/Globulin [Mass ratio] 1.0 {ratio} 0.9-2.4 [facility] Serum or plasma alkaline heidy sphatase measurementOrdered By: Moreno Donnelly on 09-05-2024 ALP [Catalytic activity/Vol] 99 U/L 35-104 [facility] Serum or plasma beta globuli n measurement by electrophoresis (mass/volume)Ordered By: Moreno Donnelly on 09-05-2024 Beta globulin Elph [Mass/Vol] 1.2 g/dL 0.7-1.3 [facility] Serum or plasma calcium nga urement (mass/volume)Ordered By: Moreno Donnelly on 09-05-2024 Calcium [Mass/Vol] 9.7 mg/dL 7.6-11.0 [facility] Serum or plasma ferritin molly surement (mass/volume)Ordered By: Moreno Donnelly on 09-05-2024 Ferritin [Mass/Vol] 79 ng/mL 22-378 [facility] Serum or plasma protein nga urement (mass/volume)Ordered By: Moreno Donnelly on 09-05-2024 Protein [Mass/Vol] 6.7 g/dL 6.0-8.5 [facility] Serum or plasma protein mono clonal measurement by electrophoresis (mass/volume)Ordered By: Moreno Donnelly on 09-05-2024 Protein.monoclonal Elph [Mass/Vol] Not Observed g/dL Not Observed [facility] Serum or plasma urea nitroge n measurement (mass/volume)Ordered By: Moreno Donnelly on 09-05-2024 Urea nitrogen [Mass/Vol] 30 mg/dL High 4-19 [facility] Serum rheumatoid factor dete ctionOrdered By: Moreno Donnelly on 09-05-2024 Rheumatoid factor Ql (S) < 10.0 IU/mL <15 [facility] Sodium levelOrdered By: Diomedes Donnelly on 09-05-2024 Sodium [Moles/Vol] 143 mmol/L 133-145 [facility] TSH DL <= 0.005 mIU/L QnOrde red By: Moreno Donnelly on 09-05-2024 TSH Qn 1.710 uIU/mL 0.300-4.20 0 [facility] Total proteinOrdered By: Stephanie Donnelly on 09-05-2024 Protein [Mass/Vol] 7.3 g/dL 5.9-8.4 [facility] White blood cell (WBC) count Ordered By: Moreno Donnelly on 09-05-2024 WBC (Bld) [#/Vol] 8.7 10*3/uL 4.4-11.0 [facility] Bone density reportOrdered B y: Lance Stollliv on 08-23-2024 Study report Skeletal system DXA [facility] Gram stainOrdered By: Peter Ambrocio on 08-23-2024 Microscopic observation Gram stain Nom (Unsp spec) [facility] Microbial respiratory cultur eOrdered By: Peter Ambrocio on 08-23-2024 Microorganism identified Cx Nom (Unsp spec) Pseudomonas aeruginosa Abnormal [facility] Absolute lymphocyte countOrd ered By: Moreno Donnelly on 07-25-2024 Lymphocytes Auto (Unsp spec) [#/Vol] 0.78 10*3/uL Low 0.83-4.51 [facility] Anion gap in Serum or Plasma Ordered By: Moreno Donnelly on 07-25-2024 Anion gap [Moles/Vol] 13 mmol/L 5-15 [facility] Automated lymphocyte count a s percentage of total leukocytesOrdered By: Moreno Donnelly on 07-25-2024 Lymphocytes/100 WBC Auto (Unsp spec) 13.9 % Low 19-41 [facility] BUN/creatinine ratioOrdered By: Moreno Donnelly on 07-25-2024 Urea nitrogen/Creatinine [Mass ratio] 16.9 mg/mg 10-20 [facility] Basophil percentageOrdered B y: Moreno Donnelly on 07-25-2024 Basophils/100 WBC (Bld) 0.4 % 0-1 [facility] Carbon dioxide, total [Moles /volume] in Central venous bloodOrdered By: Moreno Donnelly on 07-25-2024 CO2 [Moles/Vol] 25.2 mmol/L 21.0-32.0 [facility] Chloride assayOrdered By: Sussy Donnelly on 07-25-2024 Chloride [Moles/Vol] 105 mmol/L 98-108 [facility] Eosinophil percentageOrdered By: Moreno Donnelly on 07-25-2024 Eosinophils/100 WBC (Bld) 4.6 % 0-5 [facility] Erythrocyte distribution wid th ratioOrdered By: Moreno Donnelly on 07-25-2024 Erythrocyte distribution width (RBC) [Ratio] 15.7 % High 11.6-14.6 [facility] Erythrocyte distribution wid th standard deviationOrdered By: Moreno Donnelly on 07-25-2024 Erythrocyte distribution width (RBC) [Ratio] 54.3 fl High 35.1-43.9 [facility] Glomerular filtration rate ( GFR) estimation/1.73 sq m using serum, plasma, or whole bOrdered By: Moreno Donnelly on 07-25-2024 GFR/1.73 sq M.predicted among non-blacks MDRD (S/P/Bld) [Vol rate/Area] 45 mL/min/{1.73_m2} Low >60 [facility] Hematocrit Auto (Bld) [Volum e fraction]Ordered By: Moreno Donnelly on 07-25-2024 Hematocrit (Bld) [Volume fraction] 36.4 % Low 37-47 [facility] Hemoglobin measurementOrdere d By: Moreno Donnelly on 07-25-2024 Hemoglobin (Bld) [Mass/Vol] 11.2 g/dL Low 12.0-15.0 [facility] Immature granulocytes/100 WB C Auto (Bld)Ordered By: Moreno Donnelly on 07-25-2024 Immature granulocytes/100 WBC (Bld) 0.500 % 0.0-0.9 [facility] MCV (mean corpuscular volume ) determinationOrdered By: Moreno Donnelly on 07-25-2024 MCV (RBC) [Entitic vol] 94.8 fL 81-99 [facility] Mean corpuscular hemoglobin (MCH) determinationOrdered By: Moreno Donnelly on 07-25-2024 MCH (RBC) [Entitic mass] 29.2 pg 27.0-32.0 [facility] Monocyte percentageOrdered B y: Moreno Donnelly on 07-25-2024 Monocytes/100 WBC (Bld) 7.7 % 0-10 [facility] Neutrophil percentageOrdered By: Moreno Donnelly on 07-25-2024 Neutrophils/100 WBC (Bld) 72.9 % High 47-70 [facility] Platelet countOrdered By: Sussy Donnelly on 07-25-2024 Platelets (Bld) [#/Vol] 204 10*3/uL 150-450 [facility] Potassium measurement (mass/ volume)Ordered By: Moreno Donnelly on 07-25-2024 Potassium (Unsp spec) [Mass/Vol] 3.7 mmol/L 3.3-5.1 [facility] RBC Auto (Bld) [#/Vol]Ordere d By: Moreno Donnelly on 07-25-2024 RBC (Bld) [#/Vol] 3.84 10*6/uL Low 4.2-5.4 [facility] Serum creatinine measurement (mass/volume)Ordered By: Moreno Donnelly on 07-25-2024 Creatinine [Mass/Vol] 1.27 mg/dL High 0.70-1.20 [facility] Serum glucose measurement (m ass/volume)Ordered By: Moreno Donnelly on 07-25-2024 Glucose [Mass/Vol] 113 mg/dL High 70-99 [facility] Serum or plasma C reactive p rotein measurement (mass/volume)Ordered By: Moreno Donnelly on 07-25-2024 CRP [Mass/Vol] 35.90 mg/L High 0.0-3.0 [facility] Serum or plasma calcium nga urement (mass/volume)Ordered By: Moreno Donnelly on 07-25-2024 Calcium [Mass/Vol] 9.4 mg/dL 7.6-11.0 [facility] Serum or plasma urea nitroge n measurement (mass/volume)Ordered By: Moreno Donnelly on 07-25-2024 Urea nitrogen [Mass/Vol] 22 mg/dL High 4-19 [facility] Sodium levelOrdered By: Diomedes Donnelly on 07-25-2024 Sodium [Moles/Vol] 143 mmol/L 133-145 [facility] White blood cell (WBC) count Ordered By: Moreno Donnelly on 07-25-2024 WBC (Bld) [#/Vol] 5.6 10*3/uL 4.4-11.0 [facility] Venous duplex ultrasound rep ortOrdered By: Cal Lewis on 07-19-2024 US Vein [facility] Work Phone: ALP [Catalytic activity/Vol] Ordered By: Filemon Danielle on 05-23-2024 Serum or plasma alkaline phosphatase measurement 128 U/L High 35-104 [facility] ALT [Catalytic activity/Vol] Ordered By: Filemon Danielle on 05-23-2024 Serum or plasma alanine aminotransferase (ALT) measurement 11 U/L <35 [facility] Albumin [Mass/Vol]Ordered By : Filemon Danielle on 05-23-2024 Serum or plasma albumin measurement (mass/volume) 3.8 g/dL 3.4-4.8 [facility] Bilirubin directOrdered By: Filemon Danielle on 05-23-2024 Bilirubin.direct [Mass/Vol] 0.12 mg/dL 0.00-0.30 [facility] Bilirubin, totalOrdered By: Filemon Danielle on 05-23-2024 Bilirubin [Mass/Vol] 0.28 mg/dL 0.00-1.30 [facility] Bilirubin, total 0.28 mg/dL 0.00-1.30 [facility] Bilirubin.direct [Mass/Vol]O rdered By: Filemon Danielle on 05-23-2024 Bilirubin direct 0.12 mg/dL 0.00-0.30 [facility] Calculated very low density lipoprotein (VLDL) cholesterol measurementOrdered By: Filemon Danielle on 05-23-2024 Calculated very low density lipoprotein (VLDL) cholesterol measurement 25 mg/dL 5-40 [facility] Calculated very low density lipoprotein (VLDL) cholesterol measurement 25 mg/dL 5-40 [facility] Cholesterol [Mass/Vol]Ordere d By: Filemon Danielle on 05-23-2024 Serum or plasma cholesterol measurement (mass/volume) 143 mg/dL <201 [facility] Cholesterol in HDL [Mass/Vol ]Ordered By: Filemon Danielle on 05-23-2024 Serum or plasma cholesterol in HDL measurement (mass/volume) 46 mg/dL >40 [facility] LDL calc ser/plasOrdered By: Filemon Danielle on 05-23-2024 Cholesterol in LDL [Mass/Vol] 72 mg/dL [facility] LDL calc ser/plas 72 mg/dL [facility] No Panel InformationOrdered By: Filemon Danielle on 05-23-2024 16 U/L <32 [facility] Screening total cholesterol/ high density lipoprotein (HDL) cholesterol ratioOrdered By: Filemon Danielle on 05-23-2024 Screening total cholesterol/high density lipoprotein (HDL) cholesterol ratio 3.11 [facility] Serum globulin measurementOr dered By: Filemon Danielle on 05-23-2024 Globulin (S) [Mass/Vol] 3.9 g/dL 2.2-4.2 [facility] Serum globulin measurement 3.9 g/dL 2.2-4.2 [facility] Serum or plasma alanine castro otransferase (ALT) measurementOrdered By: Filemon Danielle on 05-23-2024 ALT [Catalytic activity/Vol] 11 U/L <35 [facility] Serum or plasma albumin nga urement (mass/volume)Ordered By: Filemon Danielle on 05-23-2024 Albumin [Mass/Vol] 3.8 g/dL 3.4-4.8 [facility] Serum or plasma alkaline heidy sphatase measurementOrdered By: Filemon Danielle on 05-23-2024 ALP [Catalytic activity/Vol] 128 U/L High 35-104 [facility] Serum or plasma cholesterol in HDL measurement (mass/volume)Ordered By: Filemon Danielle on 05-23-2024 Cholesterol in HDL [Mass/Vol] 46 mg/dL >40 [facility] Serum or plasma cholesterol measurement (mass/volume)Ordered By: Filemon Danielle on 05-23-2024 Cholesterol [Mass/Vol] 143 mg/dL <201 [facility] Total proteinOrdered By: John Danielle on 05-23-2024 Protein [Mass/Vol] 7.7 g/dL 5.9-8.4 [facility] Total protein 7.7 g/dL 5.9-8.4 [facility] Triglycerides measurementOrd ered By: Filemon Danielle on 05-23-2024 Triglycerides measurement 125 mg/dL <199 [facility] Anion gap [Moles/Vol]Ordered By: Moreno Donnelly on 05-10-2024 Anion gap in Serum or Plasma [address] Anion gap in Serum or Plasma Ordered By: Moreno Donnelly on 05-10-2024 Anion gap [Moles/Vol] 22 mmol/L High 5-15 [facility] BUN/creatinine ratioOrdered By: Moreno Donnelly on 05-10-2024 Urea nitrogen/Creatinine [Mass ratio] 19.0 mg/mg 10 [facility] BUN/creatinine ratio 19.0 RATIO 10-20 [facility] Calcium [Mass/Vol]Ordered By : Moreno Donnelly on 05-10-2024 Serum or plasma calcium measurement (mass/volume) 8.8 mg/dL 7.6-11.0 [facility] Carbon dioxide, total [Moles /volume] in Central venous bloodOrdered By: Moreno Donnelly on 05-10-2024 CO2 [Moles/Vol] 15.4 mmol/L Low 21.0-32.0 [facility] Carbon dioxide, total [Moles/volume] in Central venous blood 15.4 mmol/L Low 21.0-32.0 [facility] Chloride assayOrdered By: Sussy Donnelly on 05-10-2024 Chloride [Moles/Vol] 104 mmol/L 98-108 [facility] Chloride assay 104 mmol/L 98-108 [facility] Creatinine [Mass/Vol]Ordered By: Moreno Donnelly on 05-10-2024 Serum creatinine measurement (mass/volume) 1.28 mg/dL High 0.70-1.20 [facility] GFR/1.73 sq M.predicted crissy g non-blacks MDRD (S/P/Bld) [Vol rate/Area]Ordered By: Moreno Donnelly on 05-10-2024 Glomerular filtration rate (GFR) estimation/1.73 sq m using serum, plasma, or whole b 45 Low >60 [facility] Glomerular filtration rate ( GFR) estimation/1.73 sq m using serum, plasma, or whole bOrdered By: Moreno Donnelly on 05-10-2024 GFR/1.73 sq M.predicted among non-blacks MDRD (S/P/Bld) [Vol rate/Area] 45 mL/min/{1.73_m2} Low >60 [facility] Glucose [Mass/Vol]Ordered By : Moreno Donnelly on 05-10-2024 Serum glucose measurement (mass/volume) 77 mg/dL 70- [facility] Potassium (Unsp spec) [Mass/ Vol]Ordered By: Moerno Donnelly on 05-10-2024 Potassium measurement (mass/volume) 4.0 mmol/L 3.3-5.1 [facility] Potassium measurement (mass/ volume)Ordered By: Moreno Donnelly on 05-10-2024 Potassium (Unsp spec) [Mass/Vol] 4.0 mmol/L 3.3-5.1 [facility] Serum creatinine measurement (mass/volume)Ordered By: Moreno Donnelly on 05-10-2024 Creatinine [Mass/Vol] 1.28 mg/dL High 0.70-1.20 [facility] Serum glucose measurement (m ass/volume)Ordered By: Moreno Donnelly on 05-10-2024 Glucose [Mass/Vol] 77 mg/dL 70-99 [facility] Serum or plasma calcium nga urement (mass/volume)Ordered By: Moreno Donnelly on 05-10-2024 Calcium [Mass/Vol] 8.8 mg/dL 7.6-11.0 [facility] Serum or plasma urea nitroge n measurement (mass/volume)Ordered By: Moreno Donnelly on 05-10-2024 Urea nitrogen [Mass/Vol] 24 mg/dL High 06-02 [facility] Sodium levelOrdered By: Stephanieyamel campos Cony on 05-10-2024 Sodium [Moles/Vol] 141 mmol/L 133-145 [facility] Sodium level 141 mmol/L 133-145 [facility] Urea nitrogen [Mass/Vol]Orde red By: Moreno Donnelly on 05-10-2024 Serum or plasma urea nitrogen measurement (mass/volume) 24 mg/dL High 06-02 [facility] CNOVon 05-01-2024 CNOV Office Visit (OBGYWM ) -- LAURA STARK ([id number]) 1955 F Date Time Provider Department 05/01/24 1:00 PM LINDA RESTREPO OBHERBWAmy During your visit [...] Living1 SAB0 IAB0 Ectopic0 Multiple0 Live Births0 [employer] History LMP: Hysterectomy Age at Menarche: Age at First : Age at Menopause: [employer] History Comments: Sexual Activity: Not Currently; Male; hysterectomy Contraception: Surgical PAST MEDICAL HISTORY Diagnosis Date Abnormal mammogram, unspecified 12/06/2007 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 acetaminophen 650 [...] taking: Report (more content not included)... Normal [facility] Anion gap [Moles/Vol]Ordered By: Moreno Donnelly on 04-24-2024 Anion gap in Serum or Plasma 16 High - [facility] Anion gap in Serum or Plasma Ordered By: Moreno Donnelly on 04-24-2024 Anion gap [Moles/Vol] 16 mmol/L High - [facility] BUN/creatinine ratioOrdered By: Moreno Donnelly on 04-24-2024 Urea nitrogen/Creatinine [Mass ratio] 22.6 mg/mg High 10-20 [facility] BUN/creatinine ratio 22.6 RATIO High 10-20 [facility] CRP [Mass/Vol]Ordered By: Sussy Donnelly on 04-24-2024 Serum or plasma C reactive protein measurement (mass/volume) 19.40 mg/L High 0.0-3.0 [facility] Calcium [Mass/Vol]Ordered By : Moreno Donnelly on 04-24-2024 Serum or plasma calcium measurement (mass/volume) 9.7 mg/dL 7.6-11.0 [facility] Carbon dioxide, total [Moles /volume] in Central venous bloodOrdered By: Moreno Donnelly on 04-24-2024 CO2 [Moles/Vol] 21.3 mmol/L 21.0-32.0 [facility] Carbon dioxide, total [Moles/volume] in Central venous blood 21.3 mmol/L 21.0-32.0 [facility] Chloride assayOrdered By: Sussy Donnelly on 04-24-2024 Chloride [Moles/Vol] 106 mmol/L 98-108 [facility] Chloride assay 106 mmol/L 98-108 [facility] Creatinine [Mass/Vol]Ordered By: Moreno Donnelly on 04-24-2024 Serum creatinine measurement (mass/volume) 1.36 mg/dL High 0.70-1.20 [facility] GFR/1.73 sq M.predicted crissy g non-blacks MDRD (S/P/Bld) [Vol rate/Area]Ordered By: Moreno Donnelly on 04-24-2024 Glomerular filtration rate (GFR) estimation/1.73 sq m using serum, plasma, or whole b 42 Low >60 [facility] Glomerular filtration rate ( GFR) estimation/1.73 sq m using serum, plasma, or whole bOrdered By: Moreno Donnelly on 04-24-2024 GFR/1.73 sq M.predicted among non-blacks MDRD (S/P/Bld) [Vol rate/Area] 42 mL/min/{1.73_m2} Low >60 [facility] Glucose [Mass/Vol]Ordered By : Moreno Donnelly on 04-24-2024 Serum glucose measurement (mass/volume) 71 mg/dL 70-99 [facility] PTH intactOrdered By: Ramirez Donnelly on 04-24-2024 PTH intact 92 pg/mL High 11-61 [facility] Potassium (Unsp spec) [Mass/ Vol]Ordered By: Moreno Donnelly on 04-24-2024 Potassium measurement (mass/volume) 4.0 mmol/L 3.3-5.1 [facility] Potassium measurement (mass/ volume)Ordered By: Moreno Donnelly on 04-24-2024 Potassium (Unsp spec) [Mass/Vol] 4.0 mmol/L 3.3-5.1 [facility] Serum creatinine measurement (mass/volume)Ordered By: Moreno Donnelly on 04-24-2024 Creatinine [Mass/Vol] 1.36 mg/dL High 0.70-1.20 [facility] Serum glucose measurement (m ass/volume)Ordered By: Moreno Donnelly on 04-24-2024 Glucose [Mass/Vol] 71 mg/dL 70-99 [facility] Serum or plasma C reactive p rotein measurement (mass/volume)Ordered By: Moreno Donnelly on 04-24-2024 CRP [Mass/Vol] 19.40 mg/L High 0.0-3.0 [facility] Serum or plasma calcium nga urement (mass/volume)Ordered By: Moreno Donnelly on 04-24-2024 Calcium [Mass/Vol] 9.7 mg/dL 7.6-11.0 [facility] Serum or plasma urea nitroge n measurement (mass/volume)Ordered By: Moreno Donnelly on 04-24-2024 Urea nitrogen [Mass/Vol] 31 mg/dL High 06-02 [facility] Sodium levelOrdered By: Diomedes Donnelly on 04-24-2024 Sodium [Moles/Vol] 143 mmol/L 133-145 [facility] Sodium level 143 mmol/L 133-145 [facility] Urea nitrogen [Mass/Vol]Orde red By: Moreno Donnelly on 04-24-2024 Serum or plasma urea nitrogen measurement (mass/volume) 31 mg/dL High 4-19 [facility] Acid fast bacillus (AFB) cul tureOrdered By: Peter Ambrocio on 04-21-2024 Mycobacterium sp identified Org specific cx Nom (Unsp spec) [facility] Acid fast bacillus (AFB) cul tureOrdered By: Peter Ambrocio on 04-20-2024 Mycobacterium sp identified Org specific cx Nom (Unsp spec) [facility] Gram stainOrdered By: Peter Ambrocio on 04-20-2024 Microscopic observation Gram stain Nom (Unsp spec) [facility] Microbial respiratory cultur eOrdered By: Peter Ambrocio on 04-20-2024 Microorganism identified Cx Nom (Unsp spec) Pseudomonas aeruginosa Abnormal [facility] Microorganism identified Cx Nom (Unsp spec)Ordered By: Peter Ambrocio on 04-20-2024 Microbial respiratory culture Pseudomonas aeruginosa Abnormal [facility] Acid fast bacillus (AFB) cul tureOrdered By: Peter Ambrocio on 04-19-2024 Mycobacterium sp identified Org specific cx Nom (Unsp spec) [facility] Absolute lymphocyte countOrd ered By: Peter Ambrocio on 04-18-2024 Lymphocytes Auto (Unsp spec) [#/Vol] 1.93 10*3/uL 0.83-4.51 [facility] Absolute neutrophil countOrd ered By: Peter Ambrocio on 04-18-2024 Absolute neutrophil count 5.7 X10^3/uL 2.0-7.7 [facility] Automated lymphocyte count a s percentage of total leukocytesOrdered By: Peter Ambrocio on 04-18-2024 Lymphocytes/100 WBC Auto (Unsp spec) 22.5 % 19-41 [facility] Basophil percentageOrdered B y: Peter Ambrocio on 04-18-2024 Basophils/100 WBC (Bld) 0.6 % 0-1 [facility] Basophil percentage 0.6 % 0-1 [facility] Eosinophil percentageOrdered By: Peter Ambrocio on 04-18-2024 Eosinophils/100 WBC (Bld) 1.8 % 0-5 [facility] Eosinophil percentage 1.8 % 0-5 [facility] Erythrocyte distribution wid th (RBC) [Ratio]Ordered By: Peter Ambrocio on 04-18-2024 Erythrocyte distribution width ratio 14.7 % High 11.6-14.6 [facility] Erythrocyte distribution width standard deviation 51.2 fl High 35.1-43.9 [facility] Erythrocyte distribution wid th ratioOrdered By: Peter Ambrocio on 04-18-2024 Erythrocyte distribution width (RBC) [Ratio] 14.7 % High 11.6-14.6 [facility] Erythrocyte distribution wid th standard deviationOrdered By: Peter Ambrocio on 04-18-2024 Erythrocyte distribution width (RBC) [Ratio] 51.2 fl High 35.1-43.9 [facility] Gram stainOrdered By: Peter Ambrocio on 04-18-2024 Microscopic observation Gram stain Nom (Unsp spec) [facility] Hematocrit Auto (Bld) [Volum e fraction]Ordered By: Peter Ambrocio on 04-18-2024 Hematocrit (Bld) [Volume fraction] 35.3 % Low 37-47 [facility] Automated blood hematocrit (percentage) 35.3 % Low 37-47 [facility] Hemoglobin measurementOrdere d By: Peter Ambrocio on 04-18-2024 Hemoglobin (Bld) [Mass/Vol] 10.8 g/dL Low 12.0-15.0 [facility] Hemoglobin measurement 10.8 g/dL Low 12.0-15.0 [facility] Immature granulocytes/100 WB C Auto (Bld)Ordered By: Peter Ambrocio on 04-18-2024 Immature granulocytes/100 WBC (Bld) 0.200 % 0.0-0.9 [facility] Automated immature granulocyte percentage 0.200 % 0.0-0.9 [facility] Lymphocytes Auto (Unsp spec) [#/Vol]Ordered By: Peter Ambrocio on 04-18-2024 Absolute lymphocyte count 1.93 X10^3/uL 0.83-4.51 [facility] Lymphocytes/100 WBC Auto (Un sp spec)Ordered By: Peter Ambrocio on 04-18-2024 Automated lymphocyte count as percentage of total leukocytes 22.5 % 19-41 [facility] MCV (RBC) [Entitic vol]Order ed By: Peter Ambrocio on 04-18-2024 MCV (mean corpuscular volume) determination 94.6 fL 81-99 [facility] MCV (mean corpuscular volume ) determinationOrdered By: Peter Ambrocio on 04-18-2024 MCV (RBC) [Entitic vol] 94.6 fL 81-99 [facility] Mean corpuscular hemoglobin (MCH) determinationOrdered By: Peter Ambrocio on 04-18-2024 MCH (RBC) [Entitic mass] 29.0 pg 27.0-32.0 [facility] Mean corpuscular hemoglobin (MCH) determination 29.0 pg 27.0-32.0 [facility] Mean corpuscular hemoglobin concentration (MCHC) determinationOrdered By: Peter Ambrocio on 04-18-2024 Mean corpuscular hemoglobin concentration (MCHC) determination 30.6 g/dL Low 32-36 [facility] Mean platelet volume determi nationOrdered By: Peter Ambrocio on 04-18-2024 Mean platelet volume determination 10.1 fl 6.2-12.0 [facility] Microbial respiratory cultur eOrdered By: Peter Ambrocio on 04-18-2024 Microorganism identified Cx Nom (Unsp spec) Pseudomonas aeruginosa Abnormal [facility] Microorganism identified Cx Nom (Unsp spec)Ordered By: Peter Ambrocio on 04-18-2024 Microbial respiratory culture Pseudomonas aeruginosa Abnormal [facility] Monocyte percentageOrdered B y: Peter Ambrocio on 04-18-2024 Monocytes/100 WBC (Bld) 9.0 % 0-10 [facility] Monocyte percentage 9.0 % 0-10 [facility] Neutrophil percentageOrdered By: Peter Ambrocio on 04-18-2024 Neutrophils/100 WBC (Bld) 65.9 % 47-70 [facility] Neutrophil percentage 65.9 % 47-70 [facility] Nucleated red blood cell per centageOrdered By: Peter Ambrocio on 04-18-2024 Nucleated red blood cell percentage 0 % 0-5 [facility] Platelet countOrdered By: Billie Ambrocio on 04-18-2024 Platelets (Bld) [#/Vol] 385 10*3/uL 150-450 [facility] Platelet count 385 K/mm3 150-450 [facility] RBC Auto (Bld) [#/Vol]Ordere d By: Peter Ambrocio on 04-18-2024 RBC (Bld) [#/Vol] 3.73 10*6/uL Low 4.2-5.4 [facility] Automated blood erythrocyte count 3.73 M/mm3 Low 4.2-5.4 [facility] White blood cell (WBC) count Ordered By: Peter Ambrocio on 04-18-2024 WBC (Bld) [#/Vol] 8.6 10*3/uL 4.4-11.0 [facility] White blood cell (WBC) count 8.6 K/mm3 4.4-11.0 [facility] Urine cultureOrdered By: Hayden Arteaga on 04-11-2024 Bacteria identified Cx Nom (U) Culture exhibits no growth. [facility] Urine culture Culture exhibits no growth. [facility] [id number] DOrdered By: Anam Donnelly on 03-08-2024 [id number] D 76.2 ng/mL [facility] IVAN serumOrdered By: Ronnie Donnelly on 03-08-2024 IVAN serum Negative Negative [facility] Blood urea nitrogen (BUN)/cr eatinine ratioOrdered By: Moreno Donnelly on 03-08-2024 Blood urea nitrogen (BUN)/creatinine ratio 14.9 RATIO 10-20 [facility] C-reactive protein measureme nt by high sensitivity methodOrdered By: Moreno Donnelly on 03-08-2024 C-reactive protein measurement by high sensitivity method 25.10 mg/L High 0.0-3.0 [facility] Calcium [Mass/Vol]Ordered By : Moreno Donnelly on 03-08-2024 Serum or plasma calcium measurement (mass/volume) 9.8 mg/dL 8.5-10.1 [facility] Carbon dioxide measurementOr dered By: Moreno Donnelly on 03-08-2024 Carbon dioxide measurement 24.0 mmol/L 21.0-32.0 [facility] Chloride measurementOrdered By: Moreno Donnelly on 03-08-2024 Chloride measurement 107 mmol/L 98-107 [facility] Creatinine [Mass/Vol]Ordered By: Moreno Donnelly on 03-08-2024 Serum or plasma creatinine measurement (mass/volume) 1.48 mg/dL High 0.55-1.02 [facility] ESR (Bld) [Velocity]Ordered By: Moreno Donnelly on 03-08-2024 Erythrocyte sedimentation rate 41 mm/hr High 0-30 [facility] Erythrocyte distribution wid th (RBC) [Ratio]Ordered By: Moreno Donnelly on 03-08-2024 Erythrocyte distribution width ratio 15.2 % High 11.6-14.6 [facility] Erythrocyte distribution width standard deviation 55.0 fl High 35.1-43.9 [facility] Estimated glomerular filtrat ion rate (GFR) AmericanOrdered By: Moreno Donnelly on 03-08-2024 Estimated glomerular filtration rate (GFR) 45 mL/min Low >60 [facility] Glomerular filtration rate ( GFR) estimationOrdered By: Moreno Donnelly on 03-08-2024 Glomerular filtration rate (GFR) estimation 37 mL/min Low >60 [facility] Glucose measurementOrdered B y: Moreno Donnelly on 03-08-2024 Glucose measurement 78 mg/dL 74-106 [facility] Hematocrit Auto (Bld) [Volum e fraction]Ordered By: Moreno Donnelly on 03-08-2024 Automated blood hematocrit (percentage) 34.9 % Low 37-47 [facility] Hemoglobin measurementOrdere d By: Moreno Donnelly on 03-08-2024 Hemoglobin measurement 10.3 g/dL Low 12.0-15.0 [facility] Intact parathyroid hormone ( iPTH) measurementOrdered By: Moreno Donnelly on 03-08-2024 Intact parathyroid hormone (iPTH) measurement 82.2 pg/mL High 18.4-80.1 [facility] Iron (Unsp spec) [Mass/Mass] Ordered By: Moreno Donnelly on 03-08-2024 Iron measurement (mass/mass) 52 ug/dL 50-170 [facility] MCV (RBC) [Entitic vol]Order ed By: Moreno Donnelly on 03-08-2024 MCV (mean corpuscular volume) determination 98.0 fL 81-99 [facility] Magnesium measurementOrdered By: Moreno Donnelly on 03-08-2024 Magnesium measurement 2.2 mg/dL 1.6-2.6 [facility] Mean corpuscular hemoglobin (MCH) determinationOrdered By: Moreno Donnelly on 03-08-2024 Mean corpuscular hemoglobin (MCH) determination 28.9 pg 27.0-32.0 [facility] Mean corpuscular hemoglobin concentration (MCHC) determinationOrdered By: Moreno Donnelly on 03-08-2024 Mean corpuscular hemoglobin concentration (MCHC) determination 29.5 g/dL Low 32-36 [facility] Mean platelet volume determi nationOrdered By: Moreno Donnelly on 03-08-2024 Mean platelet volume determination 10.6 fl 6.2-12.0 [facility] Platelet countOrdered By: Sussy Donnelly on 03-08-2024 Platelet count 393 K/mm3 150-450 [facility] Potassium measurementOrdered By: Moreno Donnelly on 03-08-2024 Potassium measurement 3.6 mmol/L 3.5-5.1 [facility] RBC Auto (Bld) [#/Vol]Ordere d By: Moreno Donnelly on 03-08-2024 Automated blood erythrocyte count 3.56 M/mm3 Low 4.2-5.4 [facility] Rheumatoid factor measuremen tOrdered By: Moreno Donnelly on 03-08-2024 Rheumatoid factor measurement < 10.0 IU/mL <15 [facility] Serum anion gap measurementO rdered By: Moreno Donnelly on 03-08-2024 Serum anion gap measurement 9 5-15 [facility] Sodium levelOrdered By: Diomedes Donnelly on 03-08-2024 Sodium level 140 mmol/L 136-145 [facility] TSH QnOrdered By: Ervin Donnelly on 03-08-2024 Serum or plasma thyroid stimulating hormone (TSH) measurement (units/volume) 1.690 uIU/mL 0.358-3.74 0 [facility] Urea nitrogen [Mass/Vol]Orde red By: Moreno Donnelly on 03-08-2024 Serum or plasma urea nitrogen measurement (mass/volume) 22 mg/dL High 7-18 [facility] Vitamin B12 measurementOrder ed By: Moreno Donnelly on 03-08-2024 Vitamin B12 measurement 384 pg/mL 211-911 [facility] White blood cell (WBC) count Ordered By: Moreno Donnelly on 03-08-2024 White blood cell (WBC) count 7.9 K/mm3 4.4-11.0 [facility] Absolute neutrophil countOrd ered By: Moreno Donnelly on 02-23-2024 Absolute neutrophil count 5.3 X10^3/uL 2.0-7.7 [facility] Basophil percentageOrdered B y: Moreno Donnelly on 02-23-2024 Basophil percentage 0.5 % 0-1 [facility] Blood urea nitrogen (BUN)/cr eatinine ratioOrdered By: Moreno Donnelly on 02-23-2024 Blood urea nitrogen (BUN)/creatinine ratio 11.3 RATIO 10-20 [facility] Calcium [Mass/Vol]Ordered By : Moreno Donnelly on 02-23-2024 Serum or plasma calcium measurement (mass/volume) 8.9 mg/dL 8.5-10.1 [facility] Carbon dioxide measurementOr dered By: Moreno Donnelly on 02-23-2024 Carbon dioxide measurement 25.0 mmol/L 21.0-32.0 [facility] Chloride measurementOrdered By: Moreno Donnelly on 02-23-2024 Chloride measurement 106 mmol/L 98-107 [facility] Creatinine [Mass/Vol]Ordered By: Moreno Donnelly on 02-23-2024 Serum or plasma creatinine measurement (mass/volume) 1.42 mg/dL High 0.55-1.02 [facility] Eosinophil percentageOrdered By: Moreno Donnelly on 02-23-2024 Eosinophil percentage 1.2 % 0-5 [facility] Erythrocyte distribution wid th (RBC) [Ratio]Ordered By: Moreno Donnelly on 02-23-2024 Erythrocyte distribution width ratio 14.8 % High 11.6-14.6 [facility] Erythrocyte distribution width standard deviation 53.5 fl High 35.1-43.9 [facility] Estimated glomerular filtrat ion rate (GFR) AmericanOrdered By: Moreno Donnelly on 02-23-2024 Estimated glomerular filtration rate (GFR) 47 mL/min Low >60 [facility] Glomerular filtration rate ( GFR) estimationOrdered By: Moreno Donnelly on 02-23-2024 Glomerular filtration rate (GFR) estimation 39 mL/min Low >60 [facility] Glucose measurementOrdered B y: Moreno Donnelly on 02-23-2024 Glucose measurement 96 mg/dL 74-106 [facility] Hematocrit Auto (Bld) [Volum e fraction]Ordered By: Moreno Donnelly on 02-23-2024 Automated blood hematocrit (percentage) 34.8 % Low 37-47 [facility] Hemoglobin measurementOrdere d By: Moreno Donnelly on 02-23-2024 Hemoglobin measurement 10.2 g/dL Low 12.0-15.0 [facility] Immature granulocytes/100 WB C Auto (Bld)Ordered By: Moreno Donnelly on 02-23-2024 Automated immature granulocyte percentage 0.600 % 0.0-0.9 [facility] Lymphocytes Auto (Unsp spec) [#/Vol]Ordered By: Moreno Donnelly on 02-23-2024 Absolute lymphocyte count 2.14 X10^3/uL 0.83-4.51 [facility] Lymphocytes/100 WBC Auto (Un sp spec)Ordered By: Moreno Donnelly on 02-23-2024 Automated lymphocyte count as percentage of total leukocytes 25.8 % 19-41 [facility] MCV (RBC) [Entitic vol]Order ed By: Moreno Donnelly on 02-23-2024 MCV (mean corpuscular volume) determination 98.0 fL 81-99 [facility] Mean corpuscular hemoglobin (MCH) determinationOrdered By: Moreno Donnelly on 02-23-2024 Mean corpuscular hemoglobin (MCH) determination 28.7 pg 27.0-32.0 [facility] Mean corpuscular hemoglobin concentration (MCHC) determinationOrdered By: Moreno Donnelly on 02-23-2024 Mean corpuscular hemoglobin concentration (MCHC) determination 29.3 g/dL Low 32-36 [facility] Mean platelet volume determi nationOrdered By: Moreno Donnelly on 02-23-2024 Mean platelet volume determination 10.4 fl 6.2-12.0 [facility] Monocyte percentageOrdered B y: Moreno Donnelly on 02-23-2024 Monocyte percentage 7.8 % 0-10 [facility] Neutrophil percentageOrdered By: Moreno Donnelly on 02-23-2024 Neutrophil percentage 64.1 % 47-70 [facility] Nucleated red blood cell per centageOrdered By: Moreno Donnelly on 02-23-2024 Nucleated red blood cell percentage 0 % 0-5 [facility] Platelet countOrdered By: Sussy Donnelly on 02-23-2024 Platelet count 525 K/mm3 High 150-450 [facility] Potassium measurementOrdered By: Moreno Donnelly on 02-23-2024 Potassium measurement 3.4 mmol/L Low 3.5-5.1 [facility] RBC Auto (Bld) [#/Vol]Ordere d By: Moreno Donnelly on 02-23-2024 Automated blood erythrocyte count 3.55 M/mm3 Low 4.2-5.4 [facility] Serum anion gap measurementO rdered By: Moreno Donnelly on 02-23-2024 Serum anion gap measurement 8 5-15 [facility] Sodium levelOrdered By: Diomedes Donnelly on 02-23-2024 Sodium level 140 mmol/L 136-145 [facility] Urea nitrogen [Mass/Vol]Orde red By: Moreno Donnelly on 02-23-2024 Serum or plasma urea nitrogen measurement (mass/volume) 16 mg/dL 7-18 [facility] White blood cell (WBC) count Ordered By: Moreno Donnelly on 02-23-2024 White blood cell (WBC) count 8.3 K/mm3 4.4-11.0 [facility] Blood urea nitrogen (BUN)/cr eatinine ratioOrdered By: Moreno Donnelly on 02-13-2024 Blood urea nitrogen (BUN)/creatinine ratio 9.7 RATIO Low 10-20 [facility] Calcium [Mass/Vol]Ordered By : Moreno Donnelly on 02-13-2024 Serum or plasma calcium measurement (mass/volume) 9.8 mg/dL 8.5-10.1 [facility] Carbon dioxide measurementOr dered By: Moreno Donnelly on 02-13-2024 Carbon dioxide measurement 25.0 mmol/L 21.0-32.0 [facility] Chloride measurementOrdered By: Moreno Donnelly on 02-13-2024 Chloride measurement 102 mmol/L 98-107 [facility] Creatinine [Mass/Vol]Ordered By: Moreno Donnelly on 02-13-2024 Serum or plasma creatinine measurement (mass/volume) 1.85 mg/dL High 0.55-1.02 [facility] Estimated glomerular filtrat ion rate (GFR) AmericanOrdered By: Moreno Donnelly on 02-13-2024 Estimated glomerular filtration rate (GFR) 35 mL/min Low >60 [facility] Glomerular filtration rate ( GFR) estimationOrdered By: Moreno Donnelly on 02-13-2024 Glomerular filtration rate (GFR) estimation 29 mL/min Low >60 [facility] Glucose measurementOrdered B y: Moreno Donnelly on 02-13-2024 Glucose measurement 102 mg/dL 74-106 [facility] Potassium measurementOrdered By: Moreno Donnelly on 02-13-2024 Potassium measurement 3.4 mmol/L Low 3.5-5.1 [facility] Serum anion gap measurementO rdered By: Moreno Donnelly on 02-13-2024 Serum anion gap measurement 12 5-15 [facility] Sodium levelOrdered By: Diomedes Donnelly on 02-13-2024 Sodium level 139 mmol/L 136-145 [facility] Urea nitrogen [Mass/Vol]Orde red By: Moreno Donnelly on 02-13-2024 Serum or plasma urea nitrogen measurement (mass/volume) 18 mg/dL 7-18 [facility] ALP [Catalytic activity/Vol] Ordered By: Jan Davenport on 02-09-2024 Serum or plasma alkaline phosphatase measurement 115 U/L 45-117 [facility] ALT [Catalytic activity/Vol] Ordered By: Jan Davenport on 02-09-2024 Serum or plasma alanine aminotransferase (ALT) measurement 16 U/L 13-56 [facility] Absolute neutrophil countOrd ered By: Jan Davenport on 02-09-2024 Absolute neutrophil count 4.7 X10^3/uL 2.0-7.7 [facility] Albumin [Mass/Vol]Ordered By : Jan Davenport on 02-09-2024 Serum or plasma albumin measurement (mass/volume) 2.9 g/dL Low 3.2-5.0 [facility] Albumin to globulin ratioOrd ered By: Jan Davenport on 02-09-2024 Albumin to globulin ratio 0.6 RATIO Low 0.9-2.4 [facility] Basophil percentageOrdered B y: [facility] on 02-09-2024 Basophil percentage 0.5 % 0-1 [facility] Bilirubin, totalOrdered By: [facility] on 02-09-2024 Bilirubin, total 0.40 mg/dL 0.20-1.00 [facility] Blood urea nitrogen (BUN)/cr eatinine ratioOrdered By: [facility] on 02-09-2024 Blood urea nitrogen (BUN)/creatinine ratio 12.6 RATIO 10-20 [facility] C-reactive protein measureme nt by high sensitivity methodOrdered By: [facility] 02-09-2024 C-reactive protein measurement by high sensitivity method 19.80 mg/L High 0.0-3.0 [facility] Calcium [Mass/Vol]Ordered By : [facility] on 02-09-2024 Serum or plasma calcium measurement (mass/volume) 9.7 mg/dL 8.5-10.1 [facility] Carbon dioxide measurementOr dered By: [facility] 02-09-2024 Carbon dioxide measurement 26.0 mmol/L 21.0-32.0 [facility] Chloride measurementOrdered By: [facility] 02-09-2024 Chloride measurement 106 mmol/L 98-107 [facility] Cortisol [Mass/Vol]Ordered B y: [facility] on 02-09-2024 Serum or plasma cortisol measurement (mass/volume) 8.80 ug/dL 3.44-22.45 [facility] Creatinine [Mass/Vol]Ordered By: [facility] on 02-09-2024 Serum or plasma creatinine measurement (mass/volume) 2.07 mg/dL High 0.55-1.02 [facility] ESR (Bld) [Velocity]Ordered By: [facility] 02-09-2024 Erythrocyte sedimentation rate 38 mm/hr High 0-30 [facility] Eosinophil percentageOrdered By: [facility] on 02-09-2024 Eosinophil percentage 3.2 % 0-5 [facility] Erythrocyte distribution wid th (RBC) [Ratio]Ordered By: [facility] on 02-09-2024 Erythrocyte distribution width ratio 14.5 % 11.6-14.6 [facility] Erythrocyte distribution width standard deviation 52.0 fl High 35.1-43.9 [facility] Estimated glomerular filtrat ion rate (GFR) AmericanOrdered By: Jan Davenport 02-09-2024 Estimated glomerular filtration rate (GFR) 30 mL/min Low >60 [facility] Glomerular filtration rate ( GFR) estimationOrdered By: Jan De La Cruz02-09-2024 Glomerular filtration rate (GFR) estimation 25 mL/min Low >60 [facility] Glucose measurementOrdered B y: Jan Davenport on 02-09-2024 Glucose measurement 94 mg/dL 74-106 [facility] Hematocrit Auto (Bld) [Volum e fraction]Ordered By: Jan Davenport 02-09-2024 Automated blood hematocrit (percentage) 37.1 % 37-47 [facility] Hemoglobin measurementOrdere d By: Jan Davenport 02-09-2024 Hemoglobin measurement 10.9 g/dL Low 12.0-15.0 [facility] Immature granulocytes/100 WB C Auto (Bld)Ordered By: Jan Davenport 02-09-2024 Automated immature granulocyte percentage 0.500 % 0.0-0.9 [facility] Lymphocytes Auto (Unsp spec) [#/Vol]Ordered By: Jan Davenport 02-09-2024 Absolute lymphocyte count 1.88 X10^3/uL 0.83-4.51 [facility] Lymphocytes/100 WBC Auto (Un sp spec)Ordered By: Jan Davenport 02-09-2024 Automated lymphocyte count as percentage of total leukocytes 24.8 % 19-41 [facility] MCV (RBC) [Entitic vol]Order ed By: Jan Davenport 02-09-2024 MCV (mean corpuscular volume) determination 96.9 fL 81-99 [facility] Mean corpuscular hemoglobin (MCH) determinationOrdered By: Jan Davenport 02-09-2024 Mean corpuscular hemoglobin (MCH) determination 28.5 pg 27.0-32.0 [facility] Mean corpuscular hemoglobin concentration (MCHC) determinationOrdered By: Jan Davenport 02-09-2024 Mean corpuscular hemoglobin concentration (MCHC) determination 29.4 g/dL Low 32-36 [facility] Mean platelet volume determi nationOrdered By: Jan on 02-09-2024 Mean platelet volume determination 10.0 fl 6.2-12.0 [facility] Monocyte percentageOrdered B y: Jan on 02-09-2024 Monocyte percentage 9.0 % 0-10 [facility] Neutrophil percentageOrdered By: Jan on 02-09-2024 Neutrophil percentage 62.0 % 47-70 [facility] No Panel InformationOrdered By: Jan on 02-09-2024 11 U/L Low 15-37 [facility] Nucleated red blood cell per centageOrdered By: Jan on 02-09-2024 Nucleated red blood cell percentage 0 % 0-5 [facility] Platelet countOrdered By: An yasmeen orr on 02-09-2024 Platelet count 439 K/mm3 150-450 [facility] Potassium measurementOrdered By: Jan on 02-09-2024 Potassium measurement 4.4 mmol/L 3.5-5.1 [facility] RBC Auto (Bld) [#/Vol]Ordere d By: Jan on 02-09-2024 Automated blood erythrocyte count 3.83 M/mm3 Low 4.2-5.4 [facility] Serum anion gap measurementO rdered By: Jan on 02-09-2024 Serum anion gap measurement 7 5-15 [facility] Serum globulin measurementOr dered By: Jan 02-09-2024 Serum globulin measurement 4.7 g/dL High 2.2-4.2 [facility] Sodium levelOrdered By: Apple perez orr on 02-09-2024 Sodium level 139 mmol/L 136-145 [facility] Total proteinOrdered By: Adonay brock orr on 02-09-2024 Total protein 7.6 g/dL 6.4-8.2 [facility] Urea nitrogen [Mass/Vol]Orde red By: Jan on 02-09-2024 Serum or plasma urea nitrogen measurement (mass/volume) 26 mg/dL High 7-18 [facility] White blood cell (WBC) count Ordered By: Jan McMorrow on 02-09-2024 White blood cell (WBC) count 7.6 K/mm3 4.4-11.0 [facility] CNOVon 10-03-2023 CNOV Office Visit (OBGYWM ) -- LAURA STARK ([id number]) 1955 F Date Time Provider Department 10/03/23 [...] L1 SAB0 IAB0 Ectopic0 Multiple0 Live Births0 [employer] History LMP: Hysterectomy Age at Menarche: Age at First : Age at Menopause: [employer] History Comments: Sexual Activity: Not Currently; Male; hysterectomy Contraception: Surgical PAST MEDICAL HISTORY 12/06/2007: Abnormal mammogram, unspecified 10/14/2005: BILIARY DYSKINESIA 1996: DVT (deep venous thrombosis) ([facility]) Comment: Rt lower leg 10/28/2005: Embolism and thrombosis of unspecified site No date: PE (pulmonary embolism) 08/03/2012: Recurrent ventral incisional hernia No date: Sepsis ([facility]) No date: Unspecified asthma(493.90) No date: Unspecified [...] hours. fluticasone-eleuterio (more content not included)... Normal [facility] Anaerobic cultureOrdered By: Nicky Cavanaugh on 05-10-2023 Bacteria identified Anaer cx Nom (Unsp spec) No anaerobic bacteria isolated. [facility] Bacteria identified Cx Nom ( Wound)Ordered By: Nicky Cavanaugh on 05-10-2023 Wound Culture Meth. resistant Stap h. aureus [facility] Gram stain for investigation of transfusion reactionOrdered By: Nicky Cavanaugh on 05-10-2023 Microscopic observation Gram stain Nom (Unsp spec) [facility] Bacteria identified Respirat ory culture Nom (Unsp spec)Ordered By: Marie Langley on 03-30-2023 Respiratory Culture Staphylococcus aureus [facility] Respiratory Culture Staphylococcus aureus [facility] Gram stain for investigation of transfusion reactionOrdered By: Marie Langley on 03-30-2023 Microscopic observation Gram stain Nom (Unsp spec) [facility] Microscopic observation Gram stain Nom (Unsp spec) [facility] Basophil percentageOrdered B y: Ervin Donnelly on 03-09-2023 Chloride [Moles/Vol] 109 mmol/L 98-107 [facility] Glucose [Mass/Vol] 115 mg/dL 74-106 [facility] Comment on above: Fasting Glucose resu lt from 100 to 125 mg/dL suggests IMPAIRED HOMEOSTASIS per A.D.A. criteria. Potassium [Moles/Vol] 3.8 mmol/L 3.5-5.1 [facility] Sodium [Moles/Vol] 140 mmol/L 136-145 [facility] - Chemistry and C hemistry - challengeOrdered By: Ervin Donnelly on 03-09-2023 CO2 [Moles/Vol] 25.0 mmol/L 21.0-32.0 [facility] Natriuretic peptide B (Bld) [Mass/Vol] 56.6 pg/mL 0-100 [facility] Urea nitrogen/Creatinine [Mass ratio] 17.4 mg/mg 10-20 [facility] No Panel InformationOrdered By: Ervin Donnelly on 03-09-2023 Estimated GFR (MDRD) Amer 45 mL/min >60 [facility] Comment on above: GFR Calc Estimated GFR (MDRD) Non-Af Amer 37 mL/min >60 [facility] Comment on above: Non- GFR Calc Vitamin D 25-Hydroxy 55.7 ng/mL [facility] Comment on above: Vitamin D 25(OH) Sta tus Range Deficiency <20 ng/mL (50nmol/L) Insufficiency 20 - 30 ng/mL (50 - 75 nmol/L) Sufficiency 30 - 100 ng/mL (75 - 250 nmol/L) Toxicity >100 ng/mL (>250 nmol/L) Serum or plasma calcium nga urement (mass/volume)Ordered By: Ervin Donnelly on 03-09-2023 Calcium [Mass/Vol] 9.4 mg/dL 8.5-10.1 [facility] Serum or plasma creatinine m easurement (mass/volume)Ordered By: Ervin Donnelly on 03-09-2023 Creatinine [Mass/Vol] 1.49 mg/dL 0.55-1.02 [facility] Comment on above: The validity of the calculated GFR & GFRAA in patients over 70 years has not been determined. Clinical correlation is essential. Serum or plasma thyroid stim ulating hormone (TSH) measurement (units/volume)Ordered By: Ervin Donnelly on 03-09-2023 TSH Qn 2.09 uIU/mL 0.358-3.74 [facility] Serum or plasma urea nitroge n measurement (mass/volume)Ordered By: Ervin Donnelly on 03-09-2023 Urea nitrogen [Mass/Vol] 26 mg/dL 7-18 [facility] Thin prep Papanicolaou smear with manual screeningOrdered By: Ervin Donnelly on 03-09-2023 Thin prep Papanicolaou smear with manual screening 6 5-15 [facility] Microscopic observation Gram stain Nom (Vag fld)on 12-07-2022 Bacterial Vaginosis BACTERIAL VAGINOSIS RESULT: Stain results consistent with normal vaginal vern. [facility] Bacterial Vaginosis No clue cells present [facility] Bacterial Vaginosis No Yeast observed [facility] Bacterial Vaginosis Few Polymorphonuclea r leukocytes [facility] Basophil percentageOrdered B y: Adry Pires on 11-16-2022 Bilirubin [Mass/Vol] 0.40 mg/dL 0.20-1.00 [facility] Comment on above: For patients on eltr ombopag therapy, use of Dimension [place] TBIL is not recommended. Cholesterol [Mass/Vol] 150 mg/dL <200 [facility] Comment on above: <200 mg/dL Desirable 200-240 mg/dL Borderline >240 mg/dL High Risk Protein [Mass/Vol] 7.8 g/dL 6.4-8.2 [facility] Triglyceride [Mass/Vol] 182 mg/dL <199 [facility] Comment on above: The drugs N-Acetylcy steine and Metamizole may falsely depress this assay.Serum Triglycerides Reference Interval Normal <150 mg/dL Borderline high 150 - 199 mg/dL High 200 - 499 mg/dL Very High > or = 500 mg/dL Direct bilirubinOrdered By: Adry Pires on 11-16-2022 Bilirubin.direct [Mass/Vol] 0.12 mg/dL 0.00-0.30 [facility] - Chemistry and C hemistry - challengeOrdered By: Adry Pires on 11-16-2022 ALP [Catalytic activity/Vol] 143 U/L 45-117 [facility] ALT [Catalytic activity/Vol] 18 U/L 13-56 [facility] Globulin (S) [Mass/Vol] 4.6 g/dL 2.2-4.2 [facility] Serum or plasma albumin nga urement (mass/volume)Ordered By: Adry Pires on 11-16-2022 Albumin [Mass/Vol] 3.2 g/dL 3.2-5.0 [facility] Serum or plasma cholesterol in HDL measurement (mass/volume)Ordered By: Adry Pires on 11-16-2022 Cholesterol in HDL [Mass/Vol] 45 mg/dL >40 [facility] Comment on above: The drugs N-Acetylcy steine and Metamizole may falsely depress this assay. Reference Range HDL <40 mg/dL Low HDL Cholesterol HDL >or= 60 mg/dL High HDL Cholesterol Serum or plasma cholesterol in VLDL measurement (mass/volume)Ordered By: Adry Pires on 11-16-2022 Cholesterol in VLDL [Mass/Vol] 36 mg/dL 5-40 [facility] Serum or plasma low density lipoprotein (LDL) cholesterol measurement (mass/volume)Ordered By: Adry Pires on 11-16-2022 Cholesterol in LDL [Mass/Vol] 69 mg/dL 0-130 [facility] Thin prep Papanicolaou smear with manual screeningOrdered By: Adry Pires on 11-16-2022 Thin prep Papanicolaou smear with manual screening 11 U/L 15-37 [facility] Basophil percentageOrdered B y: Ervin Donnelly on 10-21-2022 Chloride [Moles/Vol] 107 mmol/L 98-107 [facility] Glucose [Mass/Vol] 130 mg/dL 74-106 [facility] Comment on above: Fasting Glucose resu lt greater than or equal to 126 mg/dL suggests DIABETES MELLITUS per A.D.A. criteria. Potassium [Moles/Vol] 4.0 mmol/L 3.5-5.1 [facility] Sodium [Moles/Vol] 139 mmol/L 136-145 [facility] - Chemistry and C hemistry - challengeOrdered By: Ervin Donnelly on 10-21-2022 CO2 [Moles/Vol] 24.0 mmol/L 21.0-32.0 [facility] Urea nitrogen/Creatinine [Mass ratio] 20.8 mg/mg 10-20 [facility] No Panel InformationOrdered By: Ervin Donnelly on 10-21-2022 Estimated GFR (MDRD) Amer 45 mL/min >60 [facility] Comment on above: GFR Calc Estimated GFR (MDRD) Non-Af Amer 37 mL/min >60 [facility] Comment on above: Non- GFR Calc Serum or plasma calcium nga urement (mass/volume)Ordered By: Ervin Donnelly on 10-21-2022 Calcium [Mass/Vol] 9.3 mg/dL 8.5-10.1 [facility] Serum or plasma creatinine m easurement (mass/volume)Ordered By: Ervin Donnelly on 10-21-2022 Creatinine [Mass/Vol] 1.49 mg/dL 0.55-1.02 [facility] Comment on above: The validity of the calculated GFR & GFRAA in patients over 70 years has not been determined. Clinical correlation is essential. Serum or plasma urea nitroge n measurement (mass/volume)Ordered By: Ervin Donnelly on 10-21-2022 Urea nitrogen [Mass/Vol] 31 mg/dL 7-18 [facility] Thin prep Papanicolaou smear with manual screeningOrdered By: Ervin Donnelly on 10-21-2022 Thin prep Papanicolaou smear with manual screening 8 5-15 [facility] Bacteria identified Cx Nom ( Throat)Ordered By: Ervin Donnelly on 09-24-2022 Throat culture Klebsiella pneumonia e sp pneum [facility] CNOVon 09-16-2022 CNOV Office Visit (AGHWW1 ) -- LAURA STARK ([id number]) 1955 F Date Time Provider Department 09/16/22 10:30 AM KEYON MEADE [id number] During your visit today, we recorded the following information about you: Respiration Weight Height 16/minute 107.5 kg 1.549 m Clementina Hare DPM 09/16/2022 11:14 AM Addendum Recommend patellar tendon weight-bearing brace (PTWB) -Sisasa (Marvin) Make appointment by telephone. Handout dispensed. Wear walking boot in mean time until brace is completed Follow up when brace is made. Keyon Meade DPM 10/03/2022 12:26 PM Addendum Chief Complaint: Chronic [...] with a walker at baseline. PCP: Moreno Donnelyl MD: PAST MEDICAL HISTORY Diagnosis Date Abnormal mammogram, unspecified 12/06/2007 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 DVT (deep venous thrombosis) ([facility]) 1995 Rt lower leg Embolism and thrombosis of unspecified site 10/28/2005 PE (pulmonary embolism) Recurrent ventral incisional hernia 08/03/2012 Sepsis ([facility]) Unspecified asthma(493.90) Unspecified essential hypertension Current Outpatient [...] predniSONE (DELT (more content not included)... Normal [facility] Basophil percentageOrdered B y: Ervin Donnelly on 09-07-2022 Chloride [Moles/Vol] 111 mmol/L 98-107 [facility] Glucose [Mass/Vol] 118 mg/dL 74-106 [facility] Comment on above: Fasting Glucose resu lt from 100 to 125 mg/dL suggests IMPAIRED HOMEOSTASIS per A.D.A. criteria. Potassium [Moles/Vol] 3.9 mmol/L 3.5-5.1 [facility] [facility] S[facility] [Moles/Vol] 143 mmol/L 136-145 [facility] WBC (Bld) [#/Vol] 6.9 10*3/uL 4.4-11.0 [facility] Blood erythrocytes count (nu mber/volume)Ordered By: Ervin Donnelly on 09-07-2022 RBC (Bld) [#/Vol] 3.73 10*6/uL 4.2-5.4 [facility] Blood hemoglobin measurement (mass/volume)Ordered By: Ervin Donnelly on 09-07-2022 Hemoglobin (Bld) [Mass/Vol] 11.2 g/dL 12.0-15.0 [facility] Blood platelet mean volumeOr dered By: Ervin Donnelly on 09-07-2022 Platelet mean volume (Bld) [Entitic vol] 10.3 fL 6.2-12.0 [facility] Determination of erythrocyte mean corpuscular volume (MCV)Ordered By: Ervin Donnelly on 09-07-2022 MCV (RBC) [Entitic vol] 97.6 fL 81-99 [facility] Hematocrit Auto (Bld) [Volum e fraction]Ordered By: Ervin Donnelly on 09-07-2022 Hematocrit (Bld) [Volume fraction] 36.4 % 37-47 [facility] - Chemistry and C hemistry - challengeOrdered By: Ervin Donnelly on 09-07-2022 CO2 [Moles/Vol] 23.0 mmol/L 21.0-32.0 [facility] Urea nitrogen/Creatinine [Mass ratio] 18.0 mg/mg 10-20 [facility] - Hematology and Cell countsOrdered By: Ervin Donnelly on 09-07-2022 Erythrocyte distribution width (RBC) [Entitic vol] 47.0 fL 35.1-43.9 [facility] Erythrocyte distribution width (RBC) [Ratio] 13.2 % 11.6-14.6 [facility] MCH (RBC) [Entitic mass] 30.0 pg 27.0-32.0 [facility] MCHC Auto (RBC) [Mass/Vol]Or dered By: Ervin Donnelly on 09-07-2022 MCHC (RBC) [Mass/Vol] 30.8 g/dL 32-36 [facility] No Panel InformationOrdered By: Ervin Donnelly on 09-07-2022 Estimated GFR (MDRD) Amer 41 mL/min >60 [facility] Comment on above: GFR Calc Estimated GFR (MDRD) Non-Af Amer 34 mL/min >60 [facility] Comment on above: Non- GFR Calc Platelets bldOrdered By: Stephanie Donnelly on 09-07-2022 Platelets (Bld) [#/Vol] 379 10*3/uL 150-450 [facility] Serum or plasma calcium nga urement (mass/volume)Ordered By: Ervin Donnelly on 09-07-2022 Calcium [Mass/Vol] 9.1 mg/dL 8.5-10.1 [facility] Serum or plasma creatinine m easurement (mass/volume)Ordered By: Ervin Donnelly on 09-07-2022 Creatinine [Mass/Vol] 1.61 mg/dL 0.55-1.02 [facility] Comment on above: The validity of the calculated GFR & GFRAA in patients over 70 years has not been determined. Clinical correlation is essential. Serum or plasma urea nitroge n measurement (mass/volume)Ordered By: Ervin Donnelly on 09-07-2022 Urea nitrogen [Mass/Vol] 29 mg/dL 7-18 [facility] Thin prep Papanicolaou smear with manual screeningOrdered By: Ervin Donnelly on 09-07-2022 Thin prep Papanicolaou smear with manual screening 9 5-15 [facility] Absolute lymphocyte countOrd ered By: Dr. Wilson on 05-08-2022 Lymphocytes Auto (Unsp spec) [#/Vol] 0.79 10*3/uL 0.83-4.51 [facility] Basophil percentageOrdered B y: Dr. Wilson on 05-08-2022 Basophils/100 WBC (Bld) 0.3 % 0-1 [facility] Chloride [Moles/Vol] 108 mmol/L 98-107 [facility] Eosinophils/100 WBC (Bld) 0.1 % 0-5 [facility] Glucose [Mass/Vol] 198 mg/dL 74-106 [facility] Comment on above: Fasting Glucose resu lt greater than or equal to 126 mg/dL suggests DIABETES MELLITUS per A.D.A. criteria. Neutrophils (Bld) [#/Vol] 6.6 10*3/uL 2.0-7.7 [facility] Neutrophils/100 WBC (Bld) 82.9 % 47-70 [facility] Potassium [Moles/Vol] 3.8 mmol/L 3.5-5.1 [facility] Sodium [Moles/Vol] 140 mmol/L 136-145 [facility] WBC (Bld) [#/Vol] 8.0 10*3/uL 4.4-11.0 [facility] Blood erythrocytes count (nu mber/volume)Ordered By: Dr. Wilson on 05-08-2022 RBC (Bld) [#/Vol] 3.97 10*6/uL 4.2-5.4 [facility] Blood hemoglobin measurement (mass/volume)Ordered By: Dr. Wilson on 05-08-2022 Hemoglobin (Bld) [Mass/Vol] 11.9 g/dL 12.0-15.0 [facility] Blood lymphocytes/100 leukoc ytesOrdered By: Dr. Wilson on 05-08-2022 Lymphocytes/100 WBC (Bld) 9.9 % 19-41 [facility] Blood monocytes/100 leukocyt esOrdered By: Dr. Wilson on 05-08-2022 Monocytes/100 WBC (Bld) 6.2 % 0-10 [facility] Blood platelet mean volumeOr dered By: Dr. Wilson on 05-08-2022 Platelet mean volume (Bld) [Entitic vol] 9.9 fL 6.2-12.0 [facility] Determination of erythrocyte mean corpuscular volume (MCV)Ordered By: Dr. Wilson on 05-08-2022 MCV (RBC) [Entitic vol] 96.7 fL 81-99 [facility] Hematocrit Auto (Bld) [Volum e fraction]Ordered By: Dr. Wilson on 05-08-2022 Hematocrit (Bld) [Volume fraction] 38.4 % 37-47 [facility] Influenza virus A and B and SARS-CoV-2 (COVID-19) Ag panel - Upper respiratory specimOrdered By: Dr. Wilson on 05-08-2022 SARS-CoV-2 & FLU Antigen (Rapid) Influenzae B [facility] - Chemistry and C hemistry - challengeOrdered By: Dr. Wilson on 05-08-2022 CO2 [Moles/Vol] 24.0 mmol/L 21.0-32.0 [facility] Urea nitrogen/Creatinine [Mass ratio] 20.3 mg/mg 10-20 [facility] - Hematology and Cell countsOrdered By: Dr. Wilson on 05-08-2022 Erythrocyte distribution width (RBC) [Entitic vol] 49.8 fL 35.1-43.9 [facility] Erythrocyte distribution width (RBC) [Ratio] 14.1 % 11.6-14.6 [facility] Immature granulocytes/100 WBC (Bld) 0.600 % 0.0-0.9 [facility] Comment on above: IG% - Immature Granu locytes (promyelocytes, myelocytes and metamyelocytes) > 1% indicates that a LEFT SHIFT is Present. MCH (RBC) [Entitic mass] 30.0 pg 27.0-32.0 [facility] Nucleated RBC/100 WBC (Bld) [Ratio] 0 % 0-5 [facility] MCHC Auto (RBC) [Mass/Vol]Or dered By: Dr. Wilson on 05-08-2022 MCHC (RBC) [Mass/Vol] 31.0 g/dL 32-36 [facility] No Panel InformationOrdered By: Dr. Wilson on 05-08-2022 Estimated Creatinine Clearance Calc 30.55 ml/min [facility] Estimated GFR (MDRD) Amer 51 mL/min >60 [facility] Comment on above: GFR Calc Estimated GFR (MDRD) Non-Af Amer 42 mL/min >60 [facility] Comment on above: Non- GFR Calc Troponin I High Sensitivity 7 pg/mL 3.0-54.0 [facility] Comment on above: Please Note: [place] t Units and Gender Specific Reference Ranges. For more information see Policy Stat Procedure [place] High Sensitivity Troponin (TNIH) and attachments. Platelets bldOrdered By: Dr. Wilson on 05-08-2022 Platelets (Bld) [#/Vol] 325 10*3/uL 150-450 [facility] Serum or plasma calcium nga urement (mass/volume)Ordered By: Dr. Wilson on 05-08-2022 Calcium [Mass/Vol] 9.2 mg/dL 8.5-10.1 [facility] Serum or plasma creatinine m easurement (mass/volume)Ordered By: Dr. Wilson on 05-08-2022 Creatinine [Mass/Vol] 1.33 mg/dL 0.55-1.02 [facility] Comment on above: The validity of the calculated GFR & GFRAA in patients over 70 years has not been determined. Clinical correlation is essential. Serum or plasma urea nitroge n measurement (mass/volume)Ordered By: Dr. Wilson on 05-08-2022 Urea nitrogen [Mass/Vol] 27 mg/dL 7-18 [facility] Thin prep Papanicolaou smear with manual screeningOrdered By: Dr. Wilson on 05-08-2022 Thin prep Papanicolaou smear with manual screening 8 5-15 [facility] Basophil percentageOrdered B y: Dr. Donnelly on 02-10-2022 Bilirubin [Mass/Vol] 0.30 mg/dL 0.20-1.00 [facility] Comment on above: For patients on eltr ombopag therapy, use of Dimension [place] TBIL is not recommended. Chloride [Moles/Vol] 106 mmol/L 98-107 [facility] Cholesterol [Mass/Vol] 177 mg/dL <200 [facility] Comment on above: <200 mg/dL Desirable 200-240 mg/dL Borderline >240 mg/dL High Risk Glucose [Mass/Vol] 130 mg/dL 74-106 [facility] Comment on above: Fasting Glucose resu lt greater than or equal to 126 mg/dL suggests DIABETES MELLITUS per A.D.A. criteria. Potassium [Moles/Vol] 4.0 mmol/L 3.5-5.1 [facility] Protein [Mass/Vol] 7.5 g/dL 6.4-8.2 [facility] Sodium [Moles/Vol] 141 mmol/L 136-145 [facility] Triglyceride [Mass/Vol] 153 mg/dL <199 [facility] Comment on above: The drugs N-Acetylcy steine and Metamizole may falsely depress this assay.Serum Triglycerides Reference Interval Normal <150 mg/dL Borderline high 150 - 199 mg/dL High 200 - 499 mg/dL Very High > or = 500 mg/dL WBC (Bld) [#/Vol] 7.3 10*3/uL 4.4-11.0 [facility] Blood erythrocytes count (nu mber/volume)Ordered By: Dr. Donnelly on 02-10-2022 RBC (Bld) [#/Vol] 3.96 10*6/uL 4.2-5.4 [facility] Blood hemoglobin measurement (mass/volume)Ordered By: Dr. Donnelly on 02-10-2022 Hemoglobin (Bld) [Mass/Vol] 11.6 g/dL 12.0-15.0 [facility] Blood platelet mean volumeOr dered By: Dr. Donnelly on 02-10-2022 Platelet mean volume (Bld) [Entitic vol] 10.1 fL 6.2-12.0 [facility] Determination of erythrocyte mean corpuscular volume (MCV)Ordered By: Dr. Donnelly on 02-10-2022 MCV (RBC) [Entitic vol] 94.9 fL 81-99 [facility] Hematocrit Auto (Bld) [Volum e fraction]Ordered By: Dr. Donnelly on 02-10-2022 Hematocrit (Bld) [Volume fraction] 37.6 % 37-47 [facility] Iron measurement (mass/mass) Ordered By: Dr. Donnelly on 02-10-2022 Iron (Unsp spec) [Mass/Mass] 35 ug/dL 50-170 [facility] - Chemistry and C hemistry - challengeOrdered By: Dr. Donnelly on 02-10-2022 ALP [Catalytic activity/Vol] 165 U/L 45-117 [facility] ALT [Catalytic activity/Vol] 19 U/L 13-56 [facility] CO2 [Moles/Vol] 26.0 mmol/L 21.0-32.0 [facility] Globulin (S) [Mass/Vol] 4.1 g/dL 2.2-4.2 [facility] Urea nitrogen/Creatinine [Mass ratio] 19.4 mg/mg 10-20 [facility] - Hematology and Cell countsOrdered By: Dr. Donnelly on 02-10-2022 Erythrocyte distribution width (RBC) [Entitic vol] 48.8 fL 35.1-43.9 [facility] Erythrocyte distribution width (RBC) [Ratio] 14.1 % 11.6-14.6 [facility] MCH (RBC) [Entitic mass] 29.3 pg 27.0-32.0 [facility] MCHC Auto (RBC) [Mass/Vol]Or dered By: Dr. Donnelly on 02-10-2022 MCHC (RBC) [Mass/Vol] 30.9 g/dL 32-36 [facility] No Panel InformationOrdered By: Dr. Donnelly on 02-10-2022 Estimated GFR (MDRD) Amer 49 mL/min >60 [facility] Comment on above: GFR Calc Estimated GFR (MDRD) Non-Af Amer 40 mL/min >60 [facility] Comment on above: Non- GFR Calc Thyroid Stimulating Hormone (TSH) 2.30 uIU/mL 0.358-3.74 [facility] Vitamin D 25-Hydroxy 54.5 ng/mL [facility] Comment on above: Vitamin D 25(OH) Sta tus Range Deficiency <20 ng/mL (50nmol/L) Insufficiency 20 - 30 ng/mL (50 - 75 nmol/L) Sufficiency 30 - 100 ng/mL (75 - 250 nmol/L) Toxicity >100 ng/mL (>250 nmol/L) Platelets bldOrdered By: Dr. Donnelly on 02-10-2022 Platelets (Bld) [#/Vol] 335 10*3/uL 150-450 [facility] Serum or plasma albumin nga urement (mass/volume)Ordered By: Dr. Donnelly on 02-10-2022 Albumin [Mass/Vol] 3.4 g/dL 3.2-5.0 [facility] Serum or plasma albumin/glob ulin mass ratioOrdered By: Dr. Donnelly on 02-10-2022 Albumin/Globulin [Mass ratio] 0.8 {ratio} 0.9-2.4 [facility] Serum or plasma calcium nga urement (mass/volume)Ordered By: Dr. Donnelly on 02-10-2022 Calcium [Mass/Vol] 9.2 mg/dL 8.5-10.1 [facility] Serum or plasma cholesterol in HDL measurement (mass/volume)Ordered By: Dr. Donnelly on 02-10-2022 Cholesterol in HDL [Mass/Vol] 51 mg/dL >40 [facility] Comment on above: The drugs N-Acetylcy steine and Metamizole may falsely depress this assay. Reference Range HDL <40 mg/dL Low HDL Cholesterol HDL >or= 60 mg/dL High HDL Cholesterol Serum or plasma cholesterol in VLDL measurement (mass/volume)Ordered By: Dr. Donnelly on 02-10-2022 Cholesterol in VLDL [Mass/Vol] 31 mg/dL 5-40 [facility] Serum or plasma creatinine m easurement (mass/volume)Ordered By: Dr. Donnelly on 02-10-2022 Creatinine [Mass/Vol] 1.39 mg/dL 0.55-1.02 [facility] Comment on above: The validity of the calculated GFR & GFRAA in patients over 70 years has not been determined. Clinical correlation is essential. Serum or plasma ferritin molly surement (mass/volume)Ordered By: Dr. Donnelly on 02-10-2022 Ferritin [Mass/Vol] 40 ng/mL 8 [facility] Serum or plasma low density lipoprotein (LDL) cholesterol measurement (mass/volume)Ordered By: Dr. Donnelly on 02-10-2022 Cholesterol in LDL [Mass/Vol] 95 mg/dL 0-130 [facility] Serum or plasma urea nitroge n measurement (mass/volume)Ordered By: Dr. Donnelly on 02-10-2022 Urea nitrogen [Mass/Vol] 27 mg/dL 7-18 [facility] Thin prep Papanicolaou smear with manual screeningOrdered By: Dr. Donnelly on 02-10-2022 Thin prep Papanicolaou smear with manual screening 11 U/L 15-37 [facility] Thin prep Papanicolaou smear with manual screening 9 5-15 [facility] SHANKAR SCREENINGon 01-27-2022 [facility] Absolute lymphocyte counton 09-12-2021 Lymphocytes Auto (Unsp spec) [#/Vol] 1.73 10*3/uL 0.83-4.51 [facility] Work Phone: Basophil percentageon 2021 Basophil percentage 0-5 SEEN /hpf 0-5 [facility] Work Phone: Basophils/100 WBC (Bld) 0.4 % 0-1 [facility] Work Phone: Bilirubin [Mass/Vol] 0.40 mg/dL 0.20-1.00 [facility] Work Phone: Comment on above: For patients on eltr ombopag therapy, use of Dimension [place] TBIL is not recommended. Chloride [Moles/Vol] 110 mmol/L 98-107 [facility] Work Phone: Eosinophils/100 WBC (Bld) 1.8 % 0-5 [facility] Work Phone: Glucose [Mass/Vol] 142 mg/dL 74-106 [facility] Work Phone: Comment on above: Fasting Glucose resu lt greater than or equal to 126 mg/dL suggests DIABETES MELLITUS per A.D.A. criteria. Neutrophils (Bld) [#/Vol] 6.6 10*3/uL 2.0-7.7 [facility] Work Phone: Neutrophils/100 WBC (Bld) 71.2 % 47-70 [facility] Work Phone: Potassium [Moles/Vol] 4.2 mmol/L 3.5-5.1 [facility] Work Phone: [phone] Protein [Mass/Vol] 7.9 g/dL 6.4-8.2 [facility] Work Phone: Sodium [Moles/Vol] 141 mmol/L 136-145 [facility] Work Phone: WBC (Bld) [#/Vol] 9.3 10*3/uL 4.4-11.0 [facility] Work Phone: Bilirubin Test strip Ql (U)o n 09-12-2021 Bilirubin Ql (U) Negative Negative [facility] Work Phone: Blood erythrocytes count (nu mber/volume)on 09-12-2021 RBC (Bld) [#/Vol] 3.90 10*6/uL 4.2-5.4 [facility] Work Phone: Blood hemoglobin measurement (mass/volume)on 09-12-2021 Hemoglobin (Bld) [Mass/Vol] 10.9 g/dL 12.0-15.0 [facility] Work Phone: [phone] Blood lymphocytes/100 leukoc yteson 09-12-2021 Lymphocytes/100 WBC (Bld) 18.5 % 19-41 [facility] Work Phone: Blood monocytes/100 leukocyt eson 09-12-2021 Monocytes/100 WBC (Bld) 7.6 % 0-10 [facility] Work Phone: Blood platelet mean volumeon 09-12-2021 Platelet mean volume (Bld) [Entitic vol] 10.6 fL 6.2-12.0 [facility] Work Phone: Determination of erythrocyte mean corpuscular volume (MCV)on 09-12-2021 MCV (RBC) [Entitic vol] 94.6 fL 81-99 [facility] Work Phone: Hematocrit Auto (Bld) [Volum e fraction]on 09-12-2021 Hematocrit (Bld) [Volume fraction] 36.9 % 37-47 [facility] Work Phone: INR in Blood by Coagulation assayon 09-12-2021 INR Coag (Bld) [Relative time] 1.4 {INR} [facility] Work Phone: Ketones Test strip Ql (U)on 09-12-2021 Ketones Ql (U) Negative Negative [facility] Work Phone: Laboratory - Chemistry and C hemistry - challengeon 09-12-2021 ALP [Catalytic activity/Vol] 149 U/L 45-117 [facility] Work Phone: ALT [Catalytic activity/Vol] 17 U/L 13-56 [facility] Work Phone: CO2 [Moles/Vol] 28.0 mmol/L 21.0-32.0 [facility] Work Phone: Globulin (S) [Mass/Vol] 4.9 g/dL 2.2-4.2 [facility] Work Phone: Urea nitrogen/Creatinine [Mass ratio] 13.3 mg/mg 10-20 [facility] Work Phone: Laboratory - Coagulationon 0 09-12-2021 aPTT Coag (Bld) [Time] 24.9 s 24.1-36.2 [facility] Work Phone: PT Coag (PPP) [Time] 16.6 s 11.7-14.9 [facility] Work Phone: Laboratory - Hematology and Cell countson 09-12-2021 Erythrocyte distribution width (RBC) [Entitic vol] 49.8 fL 35.1-43.9 [facility] Work Phone: Erythrocyte distribution width (RBC) [Ratio] 14.6 % 11.6-14.6 [facility] Work Phone: Immature granulocytes/100 WBC (Bld) 0.500 % 0.0-0.9 [facility] Work Phone: Comment on above: IG% - Immature Granu locytes (promyelocytes, myelocytes and metamyelocytes) > 1% indicates that a LEFT SHIFT is Present. MCH (RBC) [Entitic mass] 27.9 pg 27.0-32.0 [facility] Work Phone: Nucleated RBC/100 WBC (Bld) [Ratio] 0 % 0-5 [facility] Work Phone: MCHC Auto (RBC) [Mass/Vol]on 09-12-2021 MCHC (RBC) [Mass/Vol] 29.5 g/dL 32-36 [facility] Work Phone: Mucus LM Ql (Urine sed)on Mucus Ql (Urine sed) 0 SEEN /hpf [facility] Work Phone: Nitrite Test strip Ql (U)on 09-12-2021 Nitrite Ql (U) Negative Negative [facility] Work Phone: No Panel Informationon 09-12 Estimated Creatinine Clearance Calc 30.51 ml/min [facility] Work Phone: Estimated GFR (MDRD) Amer 50 mL/min >60 [facility] Work Phone: Comment on above: GFR Calc Estimated GFR (MDRD) Non-Af Amer 42 mL/min >60 [facility] Work Phone: Comment on above: Non- GFR Calc Platelets bldon 09-12-2021 Platelets (Bld) [#/Vol] 445 10*3/uL 150-450 [facility] Work Phone: Protein Test strip Ql (U)on 09-12-2021 Protein Ql (U) Negative Negative [facility] Work Phone: Serum or plasma albumin nga urement (mass/volume)on 09-12-2021 Albumin [Mass/Vol] 3.0 g/dL 3.2-5.0 [facility] Work Phone: Serum or plasma albumin/glob ulin mass ratioon 09-12-2021 Albumin/Globulin [Mass ratio] 0.6 {ratio} 0.9-2.4 [facility] Work Phone: Serum or plasma calcium nga urement (mass/volume)on 09-12-2021 Calcium [Mass/Vol] 9.3 mg/dL 8.5-10.1 [facility] Work Phone: Serum or plasma creatinine m easurement (mass/volume)on 09-12-2021 Creatinine [Mass/Vol] 1.35 mg/dL 0.55-1.02 [facility] Work Phone: Comment on above: The validity of the calculated GFR & GFRAA in patients over 70 years has not been determined. Clinical correlation is essential. Serum or plasma urea nitroge n measurement (mass/volume)on 09-12-2021 Urea nitrogen [Mass/Vol] 18 mg/dL 7-18 [facility] Work Phone: Squamous epithelial cells de tection in urine sediment by light microscopyon 09-12-2021 Epithelial cells.squamous LM Ql (Urine sed) 0-5 SEEN /hpf 5-10 [facility] Work Phone: Thin prep Papanicolaou smear with manual screeningon 09-12-2021 Thin prep Papanicolaou smear with manual screening 15 U/L 15-37 [facility] Work Phone: Thin prep Papanicolaou smear with manual screening 3 5-15 [facility] Work Phone: Urine blood detectionon 08-16 RBC Ql (U) 25 /ul Negative [facility] Work Phone: RBC Ql (U) 0-5 SEEN /hpf 0-5 [facility] Work Phone: Urine clarityon 09-12-2021 Clarity (U) Clear Clear [facility] Work Phone: Urine color determinationon 09-12-2021 Color (U) Yellow Yellow [facility] Work Phone: Urine glucose detectionon Glucose Ql (U) Normal mg/dl Normal [facility] Work Phone: Urine leukocyte esterase det ection by dipstickon 09-12-2021 Leukocyte esterase Test strip Ql (U) 25 /ul Negative [facility] Work Phone: Urine pHon 09-12-2021 pH (U) 7.0 [pH] 5.0 - 8.0 [facility] Work Phone: Urine sediment bacteria coun t by microscopy (number/high power field)on 09-12-2021 Bacteria LM.HPF (Urine sed) [#/Area] 0 /[HPF] None Seen [facility] Work Phone: Urine specific gravity measu rementon 09-12-2021 Specific gravity (U) [Rel density] 1.005 1.002-1.03 0 [facility] Work Phone: Urobilinogen Auto test strip Ql (U)on 09-12-2021 Urobilinogen Ql (U) Normal mg/dl Normal [facility] Work Phone: Basophil percentageon 2021 Chloride [Moles/Vol] 109 mmol/L 98-[address] [facility] [address] [facility] Work Phone: Glucose [Mass/Vol] 100 mg/dL 74-106 [facility] Work Phone: Comment on above: Fasting Glucose resu lt from 100 to 125 mg/dL suggests IMPAIRED HOMEOSTASIS per A.D.A. criteria. Potassium [Moles/Vol] 3.4 mmol/L 3.5-5.1 [facility] Work Phone: Sodium [Moles/Vol] 142 mmol/L 136-145 [facility] Work Phone: WBC (Bld) [#/Vol] 8.4 10*3/uL 4.4-11.0 [facility] Work Phone: Blood erythrocytes count (nu mber/volume)on 08-20-2021 RBC (Bld) [#/Vol] 3.49 10*6/uL 4.2-5.4 [facility] Work Phone: Blood hemoglobin measurement (mass/volume)on 08-20-2021 Hemoglobin (Bld) [Mass/Vol] 9.9 g/dL 12.0-15.0 [facility] Work Phone: Blood platelet mean volumeon 08-20-2021 Platelet mean volume (Bld) [Entitic vol] 10.9 fL 6.2-12.0 [facility] Work Phone: Determination of erythrocyte mean corpuscular volume (MCV)on 08-20-2021 MCV (RBC) [Entitic vol] 95.1 fL 81-99 [facility] Work Phone: Hematocrit Auto (Bld) [Volum e fraction]on 08-20-2021 Hematocrit (Bld) [Volume fraction] 33.2 % 37-47 [facility] Work Phone: Hemoglobin in reticulocytes (mass per reticulocyte)on 08-20-2021 Hemoglobin (Reticulocytes) [Entitic mass] 26.7 pg 30-35 [facility] Work Phone: Iron measurement (mass/mass) on 08-20-2021 Iron (Unsp spec) [Mass/Mass] 28 ug/dL 50-170 [facility] Work Phone: Laboratory - Chemistry and C hemistry - challengeon 08-20-2021 CO2 [Moles/Vol] 25.0 mmol/L 21.0-32.0 [facility] Work Phone: Urea nitrogen/Creatinine [Mass ratio] 20.0 mg/mg 10-20 [facility] Work Phone: Laboratory - Hematology and Cell countson 08-20-2021 Erythrocyte distribution width (RBC) [Entitic vol] 50.3 fL 35.1-43.9 [facility] Work Phone: Erythrocyte distribution width (RBC) [Ratio] 14.5 % 11.6-14.6 [facility] Work Phone: MCH (RBC) [Entitic mass] 28.4 pg 27.0-32.0 [facility] Work Phone: MCHC Auto (RBC) [Mass/Vol]on 08-20-2021 MCHC (RBC) [Mass/Vol] 29.8 g/dL 32-36 [facility] Work Phone: No Panel Informationon 08-20 Estimated GFR (MDRD) Amer 50 mL/min >60 [facility] Work Phone: Comment on above: GFR Calc Estimated GFR (MDRD) Non-Af Amer 42 mL/min >60 [facility] Work Phone: Comment on above: Non- GFR Calc Immature Reticulocyte Fraction 23.10 % 3.00-15.90 [facility] Work Phone: Reticulocyte Count 2.22 % 0.5-1.5 [facility] Work Phone: Total Iron Binding Capacity 269 ug/dL 250-450 [facility] Work Phone: Platelets bldon 08-20-2021 Platelets (Bld) [#/Vol] 404 10*3/uL 150-450 [facility] Work Phone: Serum or plasma calcium nga urement (mass/volume)on 08-20-2021 Calcium [Mass/Vol] 9.3 mg/dL 8.5-10.1 [facility] Work Phone: Serum or plasma creatinine m easurement (mass/volume)on 08-20-2021 Creatinine [Mass/Vol] 1.35 mg/dL 0.55-1.02 [facility] Work Phone: Comment on above: The validity of the calculated GFR & GFRAA in patients over 70 years has not been determined. Clinical correlation is essential. Serum or plasma ferritin molly surement (mass/volume)on 08-20-2021 Ferritin [Mass/Vol] 60 ng/mL 8-252 [facility] Work Phone: Serum or plasma urea nitroge n measurement (mass/volume)on 08-20-2021 Urea nitrogen [Mass/Vol] 27 mg/dL 7-18 [facility] Work Phone: Thin prep Papanicolaou smear with manual screeningon 08-20-2021 Thin prep Papanicolaou smear with manual screening 8 5-15 [facility] Work Phone: Bilirubin Test strip Ql (U)o n 07-21-2021 Bilirubin Ql (U) 1 mg/dL Negative [facility] Work Phone: Comment on above: COLOR OF URINE MAY A FFECT DIPSTICK RESULTS. Ketones Test strip Ql (U)on 07-21-2021 Ketones Ql (U) Negative Negative [facility] Work Phone: Nitrite Test strip Ql (U)on 07-21-2021 Nitrite Ql (U) Positive Negative [facility] Work Phone: Protein Test strip Ql (U)on 07-21-2021 Protein Ql (U) 30 mg/dl Negative [facility] Work Phone: Urine blood detectionon 06-0 RBC Ql (U) 150 /ul Negative [facility] Work Phone: Urine clarityon 07-21-2021 Clarity (U) Cloudy Clear [facility] Work Phone: Urine color determinationon 07-21-2021 Color (U) Yellow Yellow [facility] Work Phone: Urine glucose detectionon Glucose Ql (U) Normal mg/dl Normal [facility] Work Phone: [phone] Urine leukocyte esterase det ection by dipstickon 07-21-2021 Leukocyte esterase Test strip Ql (U) 500 /ul Negative [facility] Work Phone: Urine pHon 07-21-2021 pH (U) 5.0 [pH] 5.0 - 8.0 [facility] Work Phone: Urine specific gravity measu rementon 07-21-2021 Specific gravity (U) [Rel density] 1.015 1.002-1.03 0 [facility] Work Phone: Urobilinogen Auto test strip Ql (U)on 07-21-2021 Urobilinogen Ql (U) 1 mg/dl Normal [facility] Work Phone: Absolute lymphocyte counton 07-14-2021 Lymphocytes Auto (Unsp spec) [#/Vol] 1.63 10*3/uL 0.83-4.51 [facility] Work Phone: [phone] Basophil percentageon 2021 Basophil percentage 117 mg/dL 74-106 [facility] Work Phone: [phone] Basophil percentage 143 mmol/L 136-145 [facility] Work Phone: [phone] Basophil percentage 3.5 mmol/L 3.5-5.1 [facility] Work Phone: [phone] Basophil percentage 111 mmol/L 98-107 [facility] Work Phone: [phone] Basophils (Bld) [#/Vol] 5.7 10*3/uL 4.4-11.0 [facility] Work Phone: [phone] Basophils (Bld) [#/Vol] 2.9 10*3/uL 2.0-7.7 [facility] Work Phone: [phone] Basophils/100 WBC (Bld) 51.4 % 47-70 [facility] Work Phone: [phone] Basophils/100 WBC (Bld) 4.9 % 0-5 [facility] Work Phone: [phone] Basophils/100 WBC (Bld) 0.7 % 0-1 [facility] Work Phone: Chloride [Moles/Vol] 111 mmol/L 98-107 [facility] Work [facility]: Eosinophils/100 WBC (Bld) 4.9 % 0-5 [facility] Work Phone: [phone] Glucose [Mass/Vol] 117 mg/dL 74-106 [facility] Work Phone: Comment on above: Fasting Glucose resu lt from 100 to 125 mg/dL suggests IMPAIRED HOMEOSTASIS per A.D.A. criteria. Neutrophils (Bld) [#/Vol] 2.9 10*3/uL 2.0-7.7 [facility] Work Phone: Neutrophils/100 WBC (Bld) 51.4 % 47-70 [facility] Work Phone: Potassium [Moles/Vol] 3.5 mmol/L 3.5-5.1 [facility] Work Phone: Sodium [Moles/Vol] 143 mmol/L 136-145 [facility] Work Phone: WBC (Bld) [#/Vol] 5.7 10*3/uL 4.4-11.0 [facility] Work Phone: Blood erythrocytes count (nu mber/volume)on 07-14-2021 RBC (Bld) [#/Vol] 3.04 10*6/uL 4.2-5.4 [facility] Work Phone: Blood hemoglobin measurement (mass/volume)on 07-14-2021 Hemoglobin (Bld) [Mass/Vol] 8.6 g/dL 12.0-15.0 [facility] Work Phone: [phone] Blood lymphocytes/100 leukoc yteson 07-14-2021 Lymphocytes/100 WBC (Bld) 28.6 % 19-41 [facility] Work Phone: Blood monocytes/100 leukocyt eson 07-14-2021 Monocytes/100 WBC (Bld) 13.7 % 0-10 [facility] Work Phone: Blood platelet mean volumeon 07-14-2021 Platelet mean volume (Bld) [Entitic vol] 9.8 fL 6.2-12.0 [facility] Work Phone: Determination of erythrocyte mean corpuscular volume (MCV)on 07-14-2021 MCV (RBC) [Entitic vol] 94.4 fL 81-99 [facility] Work Phone: Hematocrit Auto (Bld) [Volum e fraction]on 07-14-2021 Hematocrit (Bld) [Volume fraction] 28.7 % 37-47 [facility] Work Phone: Laboratory - Chemistry and C hemistry - challengeon 07-14-2021 CO2 [Moles/Vol] 23.0 mmol/L 21.0-32.0 [facility] Work Phone: Urea nitrogen/Creatinine [Mass ratio] 28.2 mg/mg 10-20 [facility] Work Phone: Laboratory - Hematology and Cell countson 07-14-2021 Erythrocyte distribution width (RBC) [Entitic vol] 51.2 fL 35.1-43.9 [facility] Work Phone: Erythrocyte distribution width (RBC) [Ratio] 14.9 % 11.6-14.6 [facility] Work Phone: Immature granulocytes/100 WBC (Bld) 0.700 % 0.0-0.9 [facility] Work Phone: Comment on above: IG% - Immature Granu locytes (promyelocytes, myelocytes and metamyelocytes) > 1% indicates that a LEFT SHIFT is Present. MCH (RBC) [Entitic mass] 28.3 pg 27.0-32.0 [facility] Work Phone: Nucleated RBC/100 WBC (Bld) [Ratio] 0 % 0-5 [facility] Work Phone: MCHC Auto (RBC) [Mass/Vol]on 07-14-2021 MCHC (RBC) [Mass/Vol] 30.0 g/dL 32-36 [facility] Work Phone: No Panel Informationon 07-14 Estimated Creatinine Clearance Calc 31.45 ml/min [facility] Work Phone: Estimated GFR (MDRD) Amer 52 mL/min >60 [facility] Work Phone: Comment on above: GFR Calc Estimated GFR (MDRD) Non-Af Amer 43 mL/min >60 [facility] Work Phone: Comment on above: Non- GFR Calc 28.3 pg 27.0-32.0 [facility] Work Phone: 14.9 % 11.6-14.6 [facility] Work Phone: 51.2 fl 35.1-43.9 [facility] Work Phone: 0.700 % 0.0-0.9 [facility] Work Phone: 0 % 0-5 [facility] Work Phone: 43 mL/min >60 [facility] Work Phone: 52 mL/min >60 [facility] Work Phone: 31.45 ml/min [facility] Work Phone: 28.2 RATIO 10-20 [facility] Work Phone: 23.0 mmol/L 21.0-32.0 [facility] Work Phone: Platelets bldon 07-14-2021 Platelets (Bld) [#/Vol] 401 10*3/uL 150-450 [facility] Work Phone: Serum or plasma calcium nga urement (mass/volume)on 07-14-2021 Calcium [Mass/Vol] 9.1 mg/dL 8.5-10.1 [facility] Work Phone: Serum or plasma creatinine m easurement (mass/volume)on 07-14-2021 Creatinine [Mass/Vol] 1.31 mg/dL 0.55-1.02 [facility] Work Phone: Comment on above: The validity of the calculated GFR & GFRAA in patients over 70 years has not been determined. Clinical correlation is essential. Serum or plasma urea nitroge n measurement (mass/volume)on 07-14-2021 Urea nitrogen [Mass/Vol] 37 mg/dL 7-18 [facility] Work Phone: Thin prep Papanicolaou smear with manual screeningon 07-14-2021 Thin prep Papanicolaou smear with manual screening 9 5-15 [facility] Work Phone: Basophil percentageon 2021 Basophil percentage 120 mg/dL 74-106 [facility] Work Phone: Basophil percentage 141 mmol/L 136-145 [facility] Work Phone: Basophil percentage 3.5 mmol/L 3.5-5.1 [facility] Work Phone: Basophil percentage 109 mmol/L 98-107 [facility] Work Phone: No Panel Informationon 07-08 37 mL/min >60 [facility] Work Phone: 45 mL/min >60 [facility] Work Phone: 27.65 ml/min [facility] Work Phone: 18.1 RATIO 10-20 [facility] Work Phone: 26.0 mmol/L 21.0-32.0 [facility] Work Phone: Serum or plasma calcium nga urement (mass/volume)on 07-08-2021 Calcium [Mass/Vol] 9.1 mg/dL 8.5-10.1 [facility] Work Phone: Serum or plasma creatinine m easurement (mass/volume)on 07-08-2021 Creatinine [Mass/Vol] 1.49 mg/dL 0.55-1.02 [facility] Work Phone: Serum or plasma urea nitroge n measurement (mass/volume)on 07-08-2021 Urea nitrogen [Mass/Vol] 27 mg/dL 7-18 [facility] Work Phone: Thin prep Papanicolaou smear with manual screeningon 07-08-2021 Thin prep Papanicolaou smear with manual screening 6 5-15 [facility] Work Phone: Absolute lymphocyte counton 07-07-2021 Lymphocytes Auto (Unsp spec) [#/Vol] 2.41 10*3/uL 0.83-4.51 [facility] Work Phone: Basophil percentageon 2021 Basophils (Bld) [#/Vol] 7.5 10*3/uL 4.4-11.0 [facility] Work Phone: [phone] Basophils (Bld) [#/Vol] 3.6 10*3/uL 2.0-7.7 [facility] Work Phone: [phone] Basophils/100 WBC (Bld) 47.6 % 47-70 [facility] Work Phone: [phone] Basophils/100 WBC (Bld) 7.9 % 0-5 [facility] Work Phone: [phone] Basophils/100 WBC (Bld) 0.3 % 0-1 [facility] Work Phone: Blood erythrocytes count (nu mber/volume)on 07-07-2021 RBC (Bld) [#/Vol] 2.97 10*6/uL 4.2-5.4 [facility] Work Phone: Blood hemoglobin measurement (mass/volume)on 07-07-2021 Hemoglobin (Bld) [Mass/Vol] 8.4 g/dL 12.0-15.0 [facility] Work Phone: [phone] Blood lymphocytes/100 leukoc yteson 07-07-2021 Lymphocytes/100 WBC (Bld) 32.3 % 19-41 [facility] Work Phone: [phone] Blood manual differential co mment interpretation (narrative result)on 07-07-2021 Manual differential comment Jacob (Bld) [Interp] SCANNED [facility] Work Phone: Blood monocytes/100 leukocyt eson 07-07-2021 Monocytes/100 WBC (Bld) 11.0 % 0-10 [facility] Work Phone: Blood platelet mean volumeon 07-07-2021 Platelet mean volume (Bld) [Entitic vol] 9.9 fL 6.2-12.0 [facility] Work Phone: Determination of erythrocyte mean corpuscular volume (MCV)on 07-07-2021 MCV (RBC) [Entitic vol] 94.6 fL 81-99 [facility] Work Phone: [phone] Hematocrit Auto (Bld) [Volum e fraction]on 07-07-2021 Hematocrit (Bld) [Volume fraction] 28.1 % 37-47 [facility] Work Phone: MCHC Auto (RBC) [Mass/Vol]on 07-07-2021 MCHC (RBC) [Mass/Vol] 29.9 g/dL 32-36 [facility] Work Phone: No Panel Informationon 07-07 28.3 pg 27.0-32.0 [facility] Work Phone: 14.2 % 11.6-14.6 [facility] Work Phone: 49.3 fl 35.1-43.9 [facility] Work Phone: 0.900 % 0.0-0.9 [facility] Work Phone: [phone] 0 % 0-5 [facility] Work Phone: Platelets bldon 07-07-2021 Platelets (Bld) [#/Vol] 506 10*3/uL 150-450 [facility] Work Phone: Absolute lymphocyte counton 07-06-2021 Lymphocytes Auto (Unsp spec) [#/Vol] 1.08 10*3/uL 0.83-4.51 [facility] Work Phone: Basophil percentageon 2021 Basophil percentage 102 mg/dL 74-106 [facility] Work Phone: Basophil percentage 140 mmol/L 136-145 [facility] Work Phone: Basophil percentage 3.4 mmol/L 3.5-5.1 [facility] Work Phone: Basophil percentage 110 mmol/L 98-107 [facility] Work Phone: Basophils (Bld) [#/Vol] 7.2 10*3/uL 4.4-11.0 [facility] Work Phone: Basophils (Bld) [#/Vol] 4.7 10*3/uL 2.0-7.7 [facility] Work Phone: Basophils/100 WBC (Bld) 65.6 % 47-70 [facility] Work Phone: Basophils/100 WBC (Bld) 7.6 % 0-5 [facility] Work Phone: Basophils/100 WBC (Bld) 0.4 % 0-1 [facility] Work Phone: Chloride [Moles/Vol] 110 mmol/L 98-107 [facility] Work Phone: Eosinophils/100 WBC (Bld) 7.6 % 0-5 [facility] Work Phone: Glucose [Mass/Vol] 102 mg/dL 74-106 [facility] Work [facility]: Comment on above: Fasting Glucose resu lt from 100 to 125 mg/dL suggests IMPAIRED HOMEOSTASIS per A.D.A. criteria. Neutrophils (Bld) [#/Vol] 4.7 10*3/uL 2.0-7.7 [facility] Work Phone: Neutrophils/100 WBC (Bld) 65.6 % 47-70 [facility] Work Phone: Potassium [Moles/Vol] 3.4 mmol/L 3.5-5.1 [facility] Work Phone: Sodium [Moles/Vol] 140 mmol/L 136-145 [facility] Work Phone: WBC (Bld) [#/Vol] 7.2 10*3/uL 4.4-11.0 [facility] Work Phone: Blood erythrocytes count (nu mber/volume)on 07-06-2021 RBC (Bld) [#/Vol] 3.02 10*6/uL 4.2-5.4 [facility] Work Phone: Blood hemoglobin measurement (mass/volume)on 07-06-2021 Hemoglobin (Bld) [Mass/Vol] 8.5 g/dL 12.0-15.0 [facility] Work Phone: Blood lymphocytes/100 leukoc yteson 07-06-2021 Lymphocytes/100 WBC (Bld) 15.1 % 19-41 [facility] Work Phone: Blood manual differential co mment interpretation (narrative result)on 07-06-2021 Manual differential comment Jacob (Bld) [Interp] SCANNED [facility] Work Phone: Blood monocytes/100 leukocyt eson 07-06-2021 Monocytes/100 WBC (Bld) 10.5 % 0-10 [facility] Work Phone: Blood platelet mean volumeon 07-06-2021 Platelet mean volume (Bld) [Entitic vol] 10.2 fL 6.2-12.0 [facility] Work Phone: Determination of erythrocyte mean corpuscular volume (MCV)on 07-06-2021 MCV (RBC) [Entitic vol] 101.7 fL 81-99 [facility] Work Phone: Comment on above: Delta: 96.4 on 07/05-09 Hematocrit Auto (Bld) [Volum e fraction]on 07-06-2021 Hematocrit (Bld) [Volume fraction] 30.7 % 37-47 [facility] Work Phone: Laboratory - Chemistry and C hemistry - challengeon 07-06-2021 CO2 [Moles/Vol] 23.0 mmol/L 21.0-32.0 [facility] Work Phone: Urea nitrogen/Creatinine [Mass ratio] 19.6 mg/mg 10-20 [facility] Work Phone: Laboratory - Hematology and Cell countson 07-06-2021 Erythrocyte distribution width (RBC) [Entitic vol] 54.0 fL 35.1-43.9 [facility] Work Phone: Erythrocyte distribution width (RBC) [Ratio] 14.5 % 11.6-14.6 [facility] Work Phone: Immature granulocytes/100 WBC (Bld) 0.800 % 0.0-0.9 [facility] Work Phone: Comment on above: IG% - Immature Granu locytes (promyelocytes, myelocytes and metamyelocytes) > 1% indicates that a LEFT SHIFT is Present. MCH (RBC) [Entitic mass] 28.1 pg 27.0-32.0 [facility] Work Phone: Nucleated RBC/100 WBC (Bld) [Ratio] 0 % 0-5 [facility] Work Phone: MCHC Auto (RBC) [Mass/Vol]on 07-06-2021 MCHC (RBC) [Mass/Vol] 27.7 g/dL 32-36 [facility] Work Phone: Comment on above: Delta: 29.4 on 07/05 No Panel Informationon 07-06 Estimated Creatinine Clearance Calc 36.78 ml/min [facility] Work Phone: Estimated GFR (MDRD) Amer 62 mL/min >60 [facility] Work Phone: Comment on above: GFR Calc Estimated GFR (MDRD) Non-Af Amer 52 mL/min >60 [facility] Work Phone: Comment on above: Non- GFR Calc 28.1 pg 27.0-32.0 [facility] Work Phone: 14.5 % 11.6-14.6 [facility] Work Phone: 54.0 fl 35.1-43.9 [facility] Work Phone: 0.800 % 0.0-0.9 [facility] Work Phone: 0 % 0-5 [facility] Work Phone: 52 mL/min >60 [facility] Work Phone: 62 mL/min >60 [facility] Work Phone: 36.78 ml/min [facility] Work Phone: 19.6 RATIO 10-20 [facility] Work Phone: 23.0 mmol/L 21.0-32.0 [facility] Work Phone: Platelets bldon 07-06-2021 Platelets (Bld) [#/Vol] 467 10*3/uL 150-450 [facility] Work Phone: Serum or plasma calcium nga urement (mass/volume)on 07-06-2021 Calcium [Mass/Vol] 8.8 mg/dL 8.5-10.1 [facility] Work Phone: Serum or plasma creatinine m easurement (mass/volume)on 07-06-2021 Creatinine [Mass/Vol] 1.12 mg/dL 0.55-1.02 [facility] Work Phone: Comment on above: The validity of the calculated GFR & GFRAA in patients over 70 years has not been determined. Clinical correlation is essential. Serum or plasma urea nitroge n measurement (mass/volume)on 07-06-2021 Urea nitrogen [Mass/Vol] 22 mg/dL 7-18 [facility] Work Phone: Thin prep Papanicolaou smear with manual screeningon 07-06-2021 Thin prep Papanicolaou smear with manual screening 7 5-15 [facility] Work Phone: Absolute lymphocyte counton 07-04-2021 Lymphocytes Auto (Unsp spec) [#/Vol] 0.84 10*3/uL 0.83-4.51 [facility] Work Phone: Lymphocytes Auto (Unsp spec) [#/Vol] 0.78 10*3/uL 0.83-4.51 [facility] Work Phone: Basophil percentageon 2021 Basophil percentage 103 mg/dL 74-106 [facility] Work Phone: Basophil percentage 139 mmol/L 136-145 [facility] Work Phone: Basophil percentage 3.8 mmol/L 3.5-5.1 [facility] Work Phone: Basophil percentage 108 mmol/L 98-107 [facility] Work Phone: Basophils (Bld) [#/Vol] 13.8 10*3/uL 4.4-11.0 [facility] Work Phone: Basophils (Bld) [#/Vol] 11.3 10*3/uL 2.0-7.7 [facility] Work Phone: Basophils/100 WBC (Bld) 0.1 % 0-1 [facility] Work Phone: Basophils/100 WBC (Bld) 82.5 % 47-70 [facility] Work Phone: Basophils/100 WBC (Bld) 3.6 % 0-5 [facility] Work Phone: Chloride [Moles/Vol] 108 mmol/L 98-107 [facility] Work [facility]: Eosinophils/100 WBC (Bld) 3.6 % 0-5 [facility] Work Phone: Glucose [Mass/Vol] 103 mg/dL 74-106 [facility] Work Phone: Comment on above: Fasting Glucose resu lt from 100 to 125 mg/dL suggests IMPAIRED HOMEOSTASIS per A.D.A. criteria. Neutrophils (Bld) [#/Vol] 11.3 10*3/uL 2.0-7.7 [facility] Work Phone: Neutrophils/100 WBC (Bld) 82.5 % 47-70 [facility] Work Phone: Potassium [Moles/Vol] 3.8 mmol/L 3.5-5.1 [facility] Work Phone: Sodium [Moles/Vol] 139 mmol/L 136-145 [facility] Work Phone: WBC (Bld) [#/Vol] 13.8 10*3/uL 4.4-11.0 [facility] Work Phone: Basophil percentage 114 mg/dL 74-106 [facility] Work Phone: Basophil percentage 6.9 g/dL 6.4-8.2 [facility] Work Phone: Basophil percentage 0.30 mg/dL 0.20-1.00 [facility] Work Phone: Basophil percentage 140 mmol/L 136-145 [facility] Work Phone: Basophil percentage 3.9 mmol/L 3.5-5.1 [facility] Work Phone: Basophil percentage 108 mmol/L 98-107 [facility] Work Phone: Basophil percentage 0.8 mmol/L 0.4-2.0 [facility] Work Phone: Basophils (Bld) [#/Vol] 13.7 10*3/uL 4.4-11.0 [facility] Work Phone: Basophils (Bld) [#/Vol] 11.3 10*3/uL 2.0-7.7 [facility] Work Phone: Basophils/100 WBC (Bld) 83.0 % 47-70 [facility] Work Phone: Basophils/100 WBC (Bld) 3.2 % 0-5 [facility] Work Phone: Bilirubin [Mass/Vol] 0.30 mg/dL 0.20-1.00 [facility] Work Phone: Comment on above: For patients on eltr ombopag therapy, use of Dimension [place] TBIL is not recommended. Chloride [Moles/Vol] 108 mmol/L 98-107 [facility] Work Phone: Eosinophils/100 WBC (Bld) 3.2 % 0-5 [facility] Work Phone: Glucose [Mass/Vol] 114 mg/dL 74-106 [facility] Work Phone: Comment on above: Fasting Glucose resu lt from 100 to 125 mg/dL suggests IMPAIRED HOMEOSTASIS per A.D.A. criteria. Lactate [Moles/Vol] 0.8 mmol/L 0.4-2.0 [facility] Work Phone: Neutrophils (Bld) [#/Vol] 11.3 10*3/uL 2.0-7.7 [facility] Work Phone: Neutrophils/100 WBC (Bld) 83.0 % 47-70 [facility] Work Phone: Potassium [Moles/Vol] 3.9 mmol/L 3.5-5.1 [facility] Work Phone: Protein [Mass/Vol] 6.9 g/dL 6.4-8.2 [facility] Work Phone: [phone] Sodium [Moles/Vol] 140 mmol/L 136-145 [facility] Work Phone: WBC (Bld) [#/Vol] 13.7 10*3/uL 4.4-11.0 [facility] Work Phone: Blood erythrocytes count (nu mber/volume)on 07-04-2021 RBC (Bld) [#/Vol] 3.41 10*6/uL 4.2-5.4 [facility] Work Phone: RBC (Bld) [#/Vol] 3.04 10*6/uL 4.2-5.4 [facility] Work Phone: Blood hemoglobin measurement (mass/volume)on 07-04-2021 Hemoglobin (Bld) [Mass/Vol] 9.7 g/dL 12.0-15.0 [facility] Work Phone: Hemoglobin (Bld) [Mass/Vol] 8.6 g/dL 12.0-15.0 [facility] Work Phone: Blood lymphocytes/100 leukoc yteson 07-04-2021 Lymphocytes/100 WBC (Bld) 6.1 % 19- [facility] Work Phone: Lymphocytes/100 WBC (Bld) 5.7 % 19- [facility] Work Phone: Blood monocytes/100 leukocyt eson 07-04-2021 Monocytes/100 WBC (Bld) 6.6 % 0-10 [facility] Work Phone: Monocytes/100 WBC (Bld) 7.0 % 0-10 [facility] Work Phone: Blood platelet mean volumeon 07-04-2021 Platelet mean volume (Bld) [Entitic vol] 9.9 fL 6.2-12.0 [facility] Work Phone: Platelet mean volume (Bld) [Entitic vol] 10.0 fL 6.2-12.0 [facility] Work Phone: Determination of erythrocyte mean corpuscular volume (MCV)on 07-04-2021 MCV (RBC) [Entitic vol] 97.7 fL 81-99 [facility] Work Phone: [phone] MCV (RBC) [Entitic vol] 95.1 fL 81-99 [facility] Work Phone: Hematocrit Auto (Bld) [Volum e fraction]on 07-04-2021 Hematocrit (Bld) [Volume fraction] 33.3 % 37-47 [facility] Work Phone: Hematocrit (Bld) [Volume fraction] 28.9 % 37-47 [facility] Work Phone: INR in Blood by Coagulation assayon 07-04-2021 INR Coag (Bld) [Relative time] 1.8 {INR} [facility] Work Phone: Laboratory - Chemistry and C hemistry - challengeon 07-04-2021 CO2 [Moles/Vol] 24.0 mmol/L 21.0-32.0 [facility] Work Phone: Urea nitrogen/Creatinine [Mass ratio] 22.1 mg/mg 12-03 [facility] Work Phone: ALP [Catalytic activity/Vol] 92 U/L 45-117 [facility] Work Phone: ALT [Catalytic activity/Vol] 17 U/L 13-56 [facility] Work Phone: CO2 [Moles/Vol] 24.0 mmol/L 21.0-32.0 [facility] Work Phone: Globulin (S) [Mass/Vol] 4.6 g/dL 2.2-4.2 [facility] Work Phone: Urea nitrogen/Creatinine [Mass ratio] 20.6 mg/mg 12-03 [facility] Work Phone: Laboratory - Coagulationon 0 07-04-2021 aPTT Coag (Bld) [Time] 32.0 s 24.1-36.2 [facility] Work Phone: PT Coag (PPP) [Time] 20.4 s 11.7-14.9 [facility] Work Phone: Laboratory - Hematology and Cell countson 07-04-2021 Erythrocyte distribution width (RBC) [Entitic vol] 52.6 fL 35.1-43.9 [facility] Work Phone: Erythrocyte distribution width (RBC) [Ratio] 14.7 % 11.6-14.6 [facility] Work Phone: Immature granulocytes/100 WBC (Bld) 1.100 % 0.0-0.9 [facility] Work Phone: Comment on above: IG% - Immature Granu locytes (promyelocytes, myelocytes and metamyelocytes) > 1% indicates that a LEFT SHIFT is Present. MCH (RBC) [Entitic mass] 28.4 pg 27.0-32.0 [facility] Work Phone: Nucleated RBC/100 WBC (Bld) [Ratio] 0 % 0-5 [facility] Work Phone: Erythrocyte distribution width (RBC) [Entitic vol] 51.0 fL 35.1-43.9 [facility] Work Phone: Erythrocyte distribution width (RBC) [Ratio] 14.7 % 11.6-14.6 [facility] Work Phone: Immature granulocytes/100 WBC (Bld) 1.000 % 0.0-0.9 [facility] Work Phone: Comment on above: IG% - Immature Granu locytes (promyelocytes, myelocytes and metamyelocytes) > 1% indicates that a LEFT SHIFT is Present. MCH (RBC) [Entitic mass] 28.3 pg 27.0-32.0 [facility] Work Phone: MCHC Auto (RBC) [Mass/Vol]on 07-04-2021 MCHC (RBC) [Mass/Vol] 29.1 g/dL 32-36 [facility] Work Phone: MCHC (RBC) [Mass/Vol] 29.8 g/dL 32-36 [facility] Work Phone: No Panel Informationon 07-04 Estimated Creatinine Clearance Calc 30.29 ml/min [facility] Work Phone: Estimated GFR (MDRD) Amer 50 mL/min >60 [facility] Work Phone: Comment on above: GFR Calc Estimated GFR (MDRD) Non-Af Amer 41 mL/min >60 [facility] Work Phone: Comment on above: Non- GFR Calc 28.4 pg 27.0-32.0 [facility] Work Phone: 14.7 % 11.6-14.6 [facility] Work Phone: [phone] 52.6 fl 35.1-43.9 [facility] Work Phone: 1.100 % 0.0-0.9 [facility] Work Phone: 0 % 0-5 [facility] Work Phone: 41 mL/min >60 [facility] Work Phone: 50 mL/min >60 [facility] Work Phone: 30.29 ml/min [facility] Work Phone: 22.1 RATIO 10-20 [facility] Work Phone: 24.0 mmol/L 21.0-32.0 [facility] Work Phone: 20.4 SECONDS 11.7-14.9 [facility] Work Phone: 32.0 Seconds 24.1-36.2 [facility] Work Phone: No growth in 5 days. [facility] Work Phone: Estimated Creatinine Clearance Calc 30.29 ml/min [facility] Work Phone: Estimated GFR (MDRD) Amer 50 mL/min >60 [facility] Work Phone: Comment on above: GFR Calc Estimated GFR (MDRD) Non-Af Amer 41 mL/min >60 [facility] Work Phone: Comment on above: Non- GFR Calc 28.3 pg 27.0-32.0 [facility] Work Phone: [phone] 14.7 % 11.6-14.6 [facility] Work Phone: [phone] 51.0 fl 35.1-43.9 [facility] Work Phone: 1.000 % 0.0-0.9 [facility] Work Phone: 0 % 0-5 [facility] Work Phone: [phone] 41 mL/min >60 [facility] Work Phone: [phone] 50 mL/min >60 [facility] Work Phone: [phone] 30.29 ml/min [facility] Work Phone: [phone] 20.6 RATIO 10-20 [facility] Work Phone: [phone] 4.6 g/dL 2.2-4.2 [facility] Work Phone: [phone] 92 U/L 45-117 [facility] Work Phone: [phone] 17 U/L 13-56 [facility] Work Phone: [phone] 24.0 mmol/L 21.0-32.0 [facility] Work Phone: [phone] Platelets bldon 07-04-2021 Platelets (Bld) [#/Vol] 528 10*3/uL 150-450 [facility] Work Phone: [phone] Platelets (Bld) [#/Vol] 500 10*3/uL 150-450 [facility] Work Phone: [phone] Serum or plasma albumin nga urement (mass/volume)on 07-04-2021 Albumin [Mass/Vol] 2.3 g/dL 3.2-5.0 [facility] Work Phone: [phone] Serum or plasma albumin/glob ulin mass ratioon 07-04-2021 Albumin/Globulin [Mass ratio] 0.5 {ratio} 0.9-2.4 [facility] Work Phone: [phone] Serum or plasma calcium nga urement (mass/volume)on 07-04-2021 Calcium [Mass/Vol] 9.1 mg/dL 8.5-10.1 [facility] Work Phone: [phone] Calcium [Mass/Vol] 8.9 mg/dL 8.5-10.1 [facility] Work Phone: Serum or plasma creatinine m easurement (mass/volume)on 07-04-2021 Creatinine [Mass/Vol] 1.36 mg/dL 0.55-1.02 [facility] Work Phone: Comment on above: The validity of the calculated GFR & GFRAA in patients over 70 years has not been determined. Clinical correlation is essential. Creatinine [Mass/Vol] 1.36 mg/dL 0.55-1.02 [facility] Work Phone: Comment on above: The validity of the calculated GFR & GFRAA in patients over 70 years has not been determined. Clinical correlation is essential. Serum or plasma urea nitroge n measurement (mass/volume)on 07-04-2021 Urea nitrogen [Mass/Vol] 30 mg/dL 7- [facility] Work Phone: Urea nitrogen [Mass/Vol] 28 mg/dL 08-31 [facility] Work Phone: Thin prep Papanicolaou smear with manual screeningon 07-04-2021 Thin prep Papanicolaou smear with manual screening 7 5-15 [facility] Work Phone: Thin prep Papanicolaou smear with manual screening 17 U/L 15-37 [facility] Work Phone: Absolute lymphocyte counton 07-03-2021 Lymphocytes Auto (Unsp spec) [#/Vol] 0.31 10*3/uL 0.83-4.51 [facility] Work Phone: Bacteria identified Cx Nom ( U)on 07-03-2021 Urine culture Culture exhibits no growth. [facility] Work Phone: Basophil percentageon 2021 Basophil percentage 1.8 mmol/L 0.4-2.0 [facility] Work Phone: Basophils/100 WBC (Bld) 0.1 % 0-1 [facility] Work Phone: Chloride [Moles/Vol] 106 mmol/L 98-107 [facility]: Eosinophils/100 WBC (Bld) 3.7 % 0-5 [facility] Work Phone: Glucose [Mass/Vol] 131 mg/dL 74-106 [facility] Work Phone: Comment on above: Fasting Glucose resu lt greater than or equal to 126 mg/dL suggests DIABETES MELLITUS per A.D.A. criteria. Lactate [Moles/Vol] 1.8 mmol/L 0.4-2.0 [facility] Work Phone: [phone] Neutrophils (Bld) [#/Vol] 8.6 10*3/uL 2.0-7.7 [facility] Work Phone: Neutrophils/100 WBC (Bld) 88.1 % 47-70 [facility] Work Phone: Potassium [Moles/Vol] 4.0 mmol/L 3.5-5.1 [facility] Work Phone: Sodium [Moles/Vol] 141 mmol/L 136-145 [facility] Work Phone: WBC (Bld) [#/Vol] 9.7 10*3/uL 4.4-11.0 [facility] Work Phone: Basophil percentage 0 SEEN /hpf 0-5 [facility] Work Phone: Bilirubin Test strip Ql (U)o n 07-03-2021 Bilirubin Ql (U) Negative Negative [facility] Work Phone: Blood erythrocytes count (nu mber/volume)on 07-03-2021 RBC (Bld) [#/Vol] 3.24 10*6/uL 4.2-5.4 [facility] Work Phone: Blood hemoglobin measurement (mass/volume)on 07-03-2021 Hemoglobin (Bld) [Mass/Vol] 9.3 g/dL 12.0-15.0 [facility] Work Phone: Blood lymphocytes/100 leukoc yteson 07-03-2021 Lymphocytes/100 WBC (Bld) 3.2 % 19-41 [facility] Work Phone: Blood monocytes/100 leukocyt eson 07-03-2021 Monocytes/100 WBC (Bld) 4.3 % 0-10 [facility] Work Phone: Blood platelet adequacy dete ction by light microscopyon 07-03-2021 Platelets LM Ql (Bld) [facility] Work [facility]: Blood platelet mean volumeon 07-03-2021 Platelet mean volume (Bld) [Entitic vol] 9.7 fL 6.2-12.0 [facility] Work Phone: Determination of erythrocyte mean corpuscular volume (MCV)on 07-03-2021 MCV (RBC) [Entitic vol] 97.2 fL 81-99 [facility] Work Phone: Hematocrit Auto (Bld) [Volum e fraction]on 07-03-2021 Hematocrit (Bld) [Volume fraction] 31.5 % 37-47 [facility] Work Phone: Ketones Test strip Ql (U)on 07-03-2021 Ketones Ql (U) Negative Negative [facility] Work Phone: Laboratory - Chemistry and C hemistry - challengeon 07-03-2021 CO2 [Moles/Vol] 27.0 mmol/L 21.0-32.0 [facility] Work Phone: Urea nitrogen/Creatinine [Mass ratio] 25.2 mg/mg 10- [facility] Work Phone: Laboratory - Hematology and Cell countson 07-03-2021 Erythrocyte distribution width (RBC) [Entitic vol] 51.6 fL 35.1-43.9 [facility] Work Phone: Erythrocyte distribution width (RBC) [Ratio] 14.5 % 11.6-14.6 [facility] Work Phone: Immature granulocytes/100 WBC (Bld) 0.600 % 0.0-0.9 [facility] Work Phone: Comment on above: IG% - Immature Granu locytes (promyelocytes, myelocytes and metamyelocytes) > 1% indicates that a LEFT SHIFT is Present. MCH (RBC) [Entitic mass] 28.7 pg 27.0-32.0 [facility] Work Phone: Nucleated RBC/100 WBC (Bld) [Ratio] 0 % 0-5 [facility] Work Phone: MCHC Auto (RBC) [Mass/Vol]on 07-03-2021 MCHC (RBC) [Mass/Vol] 29.5 g/dL 32-36 [facility] Work Phone: Mucus LM Ql (Urine sed)on Mucus Ql (Urine sed) 0 SEEN /hpf [facility] Work Phone: Nitrite Test strip Ql (U)on 07-03-2021 Nitrite Ql (U) Negative Negative [facility] Work Phone: No Panel Informationon 07-03 Respiratory Panel (PCR) [facility] Work Phone: Estimated Creatinine Clearance Calc 33.49 ml/min [facility] Work Phone: Estimated GFR (MDRD) Amer 56 mL/min >60 [facility] Work Phone: Comment on above: GFR Calc Estimated GFR (MDRD) Non-Af Amer 46 mL/min >60 [facility] Work Phone: Comment on above: Non- GFR Calc No growth in 5 days. [facility] Work Phone: Platelets bldon 07-03-2021 Platelets (Bld) [#/Vol] 496 10*3/uL 150-450 [facility] Work Phone: Protein Test strip Ql (U)on 07-03-2021 Protein Ql (U) Negative Negative [facility] Work Phone: Serum or plasma calcium nga urement (mass/volume)on 07-03-2021 Calcium [Mass/Vol] 9.6 mg/dL 8.5-10.1 [facility] Work Phone: Serum or plasma creatinine m easurement (mass/volume)on 07-03-2021 Creatinine [Mass/Vol] 1.23 mg/dL 0.55-1.02 [facility] Work Phone: Comment on above: The validity of the calculated GFR & GFRAA in patients over 70 years has not been determined. Clinical correlation is essential. Serum or plasma urea nitroge n measurement (mass/volume)on 07-03-2021 Urea nitrogen [Mass/Vol] 31 mg/dL 7-18 [facility] Work Phone: Squamous epithelial cells de tection in urine sediment by light microscopyon 07-03-2021 Epithelial cells.squamous LM Ql (Urine sed) 0 SEEN /hpf 5-10 [facility] Work Phone: Thin prep Papanicolaou smear with manual screeningon 07-03-2021 Thin prep Papanicolaou smear with manual screening 8 5-15 [facility] Work Phone: Urine blood detectionon 06-15 RBC Ql (U) 10 /ul Negative [facility] Work Phone: RBC Ql (U) 0-5 SEEN /hpf 0-5 [facility] Work Phone: Urine clarityon 07-03-2021 Clarity (U) Clear Clear [facility] Work Phone: Urine color determinationon 07-03-2021 Color (U) Yellow Yellow [facility] Work Phone: Urine glucose detectionon Glucose Ql (U) Normal mg/dl Normal [facility] Work Phone: Urine leukocyte esterase det ection by dipstickon 07-03-2021 Leukocyte esterase Test strip Ql (U) Negative Negative [facility] Work Phone: Urine pHon 07-03-2021 pH (U) 7.0 [pH] 5.0 - 8.0 [facility] Work Phone: Urine sediment bacteria coun t by microscopy (number/high power field)on 07-03-2021 Bacteria LM.HPF (Urine sed) [#/Area] 0 /[HPF] None Seen [facility] Work Phone: Urine specific gravity measu rementon 07-03-2021 Specific gravity (U) [Rel density] 1.010 1.002-1.03 0 [facility] Work Phone: Urobilinogen Auto test strip Ql (U)on 07-03-2021 Urobilinogen Ql (U) Normal mg/dl Normal [facility] Work Phone: Basophil percentageon 2021 Basophil percentage 142 mg/dL 74-106 [facility] Work Phone: Basophil percentage 141 mmol/L 136-145 [facility] Work Phone: Basophil percentage 3.4 mmol/L 3.5-5.1 [facility] Work Phone: Basophil percentage 108 mmol/L 98-107 [facility] Work Phone: Basophils (Bld) [#/Vol] 7.6 10*3/uL 4.4-11.0 [facility] Work Phone: Chloride [Moles/Vol] 108 mmol/L 98-107 [facility] Work Phone: Glucose [Mass/Vol] 142 mg/dL 74-106 [facility] Work Phone: Comment on above: Fasting Glucose resu lt greater than or equal to 126 mg/dL suggests DIABETES MELLITUS per A.D.A. criteria. Potassium [Moles/Vol] 3.4 mmol/L 3.5-5.1 [facility] Work Phone: Sodium [Moles/Vol] 141 mmol/L 136-145 [facility] Work Phone: WBC (Bld) [#/Vol] 7.6 10*3/uL 4.4-11.0 [facility] Work Phone: [phone] Blood erythrocytes count (nu mber/volume)on 06-26-2021 RBC (Bld) [#/Vol] 2.94 10*6/uL 4.2-5.4 [facility] Work Phone: Blood hemoglobin measurement (mass/volume)on 06-26-2021 Hemoglobin (Bld) [Mass/Vol] 8.4 g/dL 12.0-15.0 [facility] Work Phone: Blood platelet mean volumeon 06-26-2021 Platelet mean volume (Bld) [Entitic vol] 9.9 fL 6.2-12.0 [facility] Work Phone: Determination of erythrocyte mean corpuscular volume (MCV)on 06-26-2021 MCV (RBC) [Entitic vol] 96.3 fL 81-99 [facility] Work Phone: Hematocrit Auto (Bld) [Volum e fraction]on 06-26-2021 Hematocrit (Bld) [Volume fraction] 28.3 % 37-47 [facility] Work Phone: Laboratory - Chemistry and C hemistry - challengeon 06-26-2021 CO2 [Moles/Vol] 26.0 mmol/L 21.0-32.0 [facility] Work Phone: Urea nitrogen/Creatinine [Mass ratio] 22.3 mg/mg 10-20 [facility] Work Phone: Laboratory - Hematology and Cell countson 06-26-2021 Erythrocyte distribution width (RBC) [Entitic vol] 49.3 fL 35.1-43.9 [facility] Work Phone: Erythrocyte distribution width (RBC) [Ratio] 14.1 % 11.6-14.6 [facility] Work Phone: MCH (RBC) [Entitic mass] 28.6 pg 27.0-32.0 [facility] Work Phone: MCHC Auto (RBC) [Mass/Vol]on 06-26-2021 MCHC (RBC) [Mass/Vol] 29.7 g/dL 32-36 [facility] Work Phone: No Panel Informationon 06-26 Estimated Creatinine Clearance Calc 36.78 ml/min [facility] Work Phone: Estimated GFR (MDRD) Amer 62 mL/min >60 [facility] Work Phone: Comment on above: GFR Calc Estimated GFR (MDRD) Non-Af Amer 52 mL/min >60 [facility] Work Phone: Comment on above: Non- GFR Calc 28.6 pg 27.0-32.0 [facility] Work Phone: 14.1 % 11.6-14.6 [facility] Work Phone: 49.3 fl 35.1-43.9 [facility] Work Phone: 52 mL/min >60 [facility] Work Phone: 62 mL/min >60 [facility] Work Phone: 36.78 ml/min [facility] Work Phone: 22.3 RATIO 10-20 [facility] Work Phone: 26.0 mmol/L 21.0-32.0 [facility] Work Phone: Platelets bldon 06-26-2021 Platelets (Bld) [#/Vol] 275 10*3/uL 150-450 [facility] Work Phone: Serum or plasma calcium nga urement (mass/volume)on 06-26-2021 Calcium [Mass/Vol] 8.6 mg/dL 8.5-10.1 [facility] Work Phone: Serum or plasma creatinine m easurement (mass/volume)on 06-26-2021 Creatinine [Mass/Vol] 1.12 mg/dL 0.55-1.02 [facility] Work Phone: Comment on above: The validity of the calculated GFR & GFRAA in patients over 70 years has not been determined. Clinical correlation is essential. Serum or plasma urea nitroge n measurement (mass/volume)on 06-26-2021 Urea nitrogen [Mass/Vol] 25 mg/dL 7-18 [facility] Work Phone: Thin prep Papanicolaou smear with manual screeningon 06-26-2021 Thin prep Papanicolaou smear with manual screening 7 5-15 [facility] Work Phone: Glucose Glucometer (BldC) [M ass/Vol]on 06-24-2021 Glucose [Mass/Vol] 138 mg/dL 74-106 [facility] Work Phone: Comment on above: MANAGEMENT OF PATIRUT T CARE PER NURSING PROTOCOL Laboratory - Chemistry and C hemistry - challengeon 06-22-2021 Magnesium [Mass/Vol] 2.3 mg/dL 1.6-2.6 [facility] Work Phone: No Panel Informationon 06-22 2.3 mg/dL 1.6-2.6 [facility] Work Phone: Absolute lymphocyte counton 06-08-2021 Lymphocytes Auto (Unsp spec) [#/Vol] 1.68 10*3/uL 0.83-4.51 [facility] Work Phone: Basophil percentageon 2021 Basophils (Bld) [#/Vol] 5.3 10*3/uL 2.0-7.7 [facility] Work Phone: Basophils/100 WBC (Bld) 0.5 % 0-1 [facility] Work Phone: Basophils/100 WBC (Bld) 66.1 % 47-70 [facility] Work Phone: Basophils/100 WBC (Bld) 2.9 % 0-5 [facility] Work Phone: Eosinophils/100 WBC (Bld) 2.9 % 0-5 [facility] Work Phone: [phone] Neutrophils (Bld) [#/Vol] 5.3 10*3/uL 2.0-7.7 [facility] Work Phone: Neutrophils/100 WBC (Bld) 66.1 % 47-70 [facility] Work Phone: Blood lymphocytes/100 leukoc yteson 06-08-2021 Lymphocytes/100 WBC (Bld) 21.1 % 19-41 [facility] Work Phone: Blood monocytes/100 leukocyt eson 06-08-2021 Monocytes/100 WBC (Bld) 9.1 % 0-10 [facility] Work Phone: Laboratory - Hematology and Cell countson 06-08-2021 Immature granulocytes/100 WBC (Bld) 0.300 % 0.0-0.9 [facility] Work Phone: Comment on above: IG% - Immature Granu locytes (promyelocytes, myelocytes and metamyelocytes) > 1% indicates that a LEFT SHIFT is Present. Nucleated RBC/100 WBC (Bld) [Ratio] 0 % 0-5 [facility] Work Phone: No Panel Informationon 06-08 Nasal Screen MRSA/MSSA Wo [facility] Work Phone: 0.300 % 0.0-0.9 [facility] Work Phone: [phone] 0 % 0-5 [facility] Work Phone: Serum or plasma albumin nga urement (mass/volume)on 06-08-2021 Albumin [Mass/Vol] 3.2 g/dL 3.2-5.0 [facility] Work Phone: Bronchoalveolar lavage cultu re with Gram stainon 05-22-2021 Respiratory Culture Pseudomonas aeroginosa [facility] Work Phone: Bronchoalveolar lavage culture with Gram stain Pseudomonas aeroginosa [facility] Work Phone: Gram stain for investigation of transfusion reactionon 05-22-2021 Microscopic observation Gram stain Nom (Unsp spec) [facility] Work Phone: .Auto Diffon 05-15-2021 Basophil, Absolute 0.00 10 3/mcL Normal 0.00-0.19 [facility] ([place]) Comment on above: Performed By: #### C BC, ADIFF, ANEU, BMP, ALB, GFR, ABOG, ANSG #### [address] [address] Basophils/100 WBC (Bld) 0.4 % Normal 0.0-2.5 [facility] ([place]) Comment on above: Performed By: #### C BC, ADIFF, ANEU, BMP, ALB, GFR, ABOG, ANSG #### [address] [address] Eosinophil, Absolute 0.20 10 3/mcL Normal 0.00-0.40 [facility] ([place]) Comment on above: Performed By: #### C BC, ADIFF, ANEU, BMP, ALB, GFR, ABOG, ANSG #### [address] [address] Eosinophils/100 WBC (Bld) 3.0 % Normal 0.0-7.0 [facility] ([place]) Comment on above: Performed By: #### C BC, ADIFF, ANEU, BMP, ALB, GFR, ABOG, ANSG #### [address] [address] Lymphocyte, Absolute 1.40 10 3/mcL Normal 0.77-3.85 [facility] ([place]) Comment on above: Performed By: #### C BC, ADIFF, ANEU, BMP, ALB, GFR, ABOG, ANSG #### [address] [address] Lymphocytes/100 WBC (Bld) 18.2 % Normal 10.0-50.0 [facility] ([place] Comment on above: Performed By: #### C BC, ADIFF, ANEU, BMP, ALB, GFR, ABOG, ANSG #### [address] [address] Monocyte, Absolute 0.50 10 3/mcL Normal 0.15-1.00 [facility] ([place]) Comment on above: Performed By: #### C BC, ADIFF, ANEU, BMP, ALB, GFR, ABOG, ANSG #### [address] [address] Monocytes/100 WBC (Bld) 7.0 % Normal 1.7-13.0 [facility] ([place]) Comment on above: Performed By: #### C BC, ADIFF, ANEU, BMP, ALB, GFR, ABOG, ANSG #### [address] [address] Neutrophils/100 WBC (Bld) 71.4 % Normal 37.0-80.0 [facility] ([place] Comment on above: Performed By: #### C BC, ADIFF, ANEU, BMP, ALB, GFR, ABOG, ANSG #### [address] [address] .GFRon 05-15-2021 GFR Non- 31 ml/min/1.73sqm Normal [facility] ([place] Comment on above: Result Comment: GFR Population [...] ANEU, BMP, ALB, GFR, ABOG, ANSG #### [address] [address] GFR 38 ml/min/1.73sqm Normal [facility] ([place] Comment on above: Result Comment: GFR Population [...] ANEU, BMP, ALB, GFR, ABOG, ANSG #### [address] [address] .NEUABSon 05-15-2021 Neutrophil, Absolute 5.60 10 3/mcL Normal 2.85-6.16 [facility] ([place]) Comment on above: Performed By: #### C BC, ADIFF, ANEU, BMP, ALB, GFR, ABOG, ANSG #### [place] [address] A1Con 05-15-2021 HbA1c (Bld) [Mass fraction] 6.6 % High 4.3-6.4 [facility] ([place]) Comment on above: Order Comment: OFF B LOOD IN LAB Performed By: #### C BC, ADIFF, ANEU, BMP, ALB, GFR, ABOG, ANSG #### [place] [address] ALBon 05-15-2021 Albumin Level 3.4 G/dL Normal 3.4-4.8 [facility] ([place] Comment on above: Performed By: #### C BC, ADIFF, ANEU, BMP, ALB, GFR, ABOG, ANSG #### [place] [address] APTTon 05-15-2021 aPTT Coag (d) [Time] 41.3 s High 24.8-33.3 [facility] ([place]) Comment on above: Result Comment: For Heparin anticoagulation therapy, the recommended therapeutic range is: 53.6-87.4 seconds (1.5 - 2.5 the normal plasma mean). Patients on heparin therapy may have an extreme result. Performed By: #### P BNP, APTT, PRO #### [address] [address] Heparin dose (APTT) Unknown Normal Pending sale to [facility] ([place] Comment on above: Performed By: #### P BNP, APTT, PRO #### [address] [address] BMPon 05-15-2021 BUN/Creatinine Ratio 23 ratio Normal 7-27 [facility] ([place]) Comment on above: Performed By: #### C BC, ADIFF, ANEU, BMP, ALB, GFR, ABOG, ANSG #### [address] [address] Calcium [Mass/Vol] 10.0 mg/dL Normal 8.4-10.2 [facility] ([place] Comment on above: Performed By: #### C BC, ADIFF, ANEU, BMP, ALB, GFR, ABOG, ANSG #### [address] [address] Chloride [Moles/Vol] 105 mmol/L Normal 98-107 [facility] Comment on above: Performed By: #### C BC, ADIFF, ANEU, BMP, ALB, GFR, ABOG, ANSG #### [address] [address] CO2 [Moles/Vol] 26 mmol/L Normal 23-31 [facility] ([place] Comment on above: Performed By: #### C BC, ADIFF, ANEU, BMP, ALB, GFR, ABOG, ANSG #### [address] [address] Creatinine [Mass/Vol] 1.65 mg/dL High 0.55-1.02 [facility] ([place] Comment on above: Performed By: #### C BC, ADIFF, ANEU, BMP, ALB, GFR, ABOG, ANSG #### [address] [address] Electrolyte Balance 14.0 mEq/L Normal 4.0-15.0 Pending sale to [facility] ([place] Comment on above: Performed By: #### C BC, ADIFF, ANEU, BMP, ALB, GFR, ABOG, ANSG #### [address] [address] Glucose [Mass/Vol] 99 mg/dL Normal 80-115 [facility] ([place] Comment on above: Performed By: #### C BC, ADIFF, ANEU, BMP, ALB, GFR, ABOG, ANSG #### [address] [address] Potassium [Moles/Vol] 4.3 mmol/L Normal 3.5-5.1 [facility] ([place] Comment on above: Performed By: #### C BC, ADIFF, ANEU, BMP, ALB, GFR, ABOG, ANSG #### [address] [address] Sodium [Moles/Vol] 145 mmol/L Normal 136-145 [facility] ([place] Comment on above: Performed By: #### C BC, ADIFF, ANEU, BMP, ALB, GFR, ABOG, ANSG #### [address] [address] Urea nitrogen [Mass/Vol] 38 mg/dL High 7-18 [facility] ([place] Comment on above: Performed By: #### C BC, ADIFF, ANEU, BMP, ALB, GFR, ABOG, ANSG #### [address] [address] CBCon 05-15-2021 Erythrocyte distribution width (RBC) [Ratio] 14.6 % High 11.5-14.5 [facility] ([place] Comment on above: Order Comment: Pre-A dmission Testing Performed By: #### C BC, ADIFF, ANEU, BMP, ALB, GFR, ABOG, ANSG #### [address] [address] Hematocrit (Bld) [Volume fraction] 32.2 % Low 37.0-47.0 [facility] ([place] Comment on above: Order Comment: Pre-A dmission Testing Performed By: #### C BC, ADIFF, ANEU, BMP, ALB, GFR, ABOG, ANSG #### [address] [address] Hgb 10.7 G/dL Low 12.0-16.0 [facility] ([place] Comment on above: Order Comment: Pre-A dmission Testing Performed By: #### C BC, ADIFF, ANEU, BMP, ALB, GFR, ABOG, ANSG #### [address] [address] MCH (RBC) [Entitic mass] 29.9 pg Normal 27.0-31.2 [facility] ([place] Comment on above: Order Comment: Pre-A dmission Testing Performed By: #### C BC, ADIFF, ANEU, BMP, ALB, GFR, ABOG, ANSG #### [place] [address] MCHC 33.1 G/dL Normal 33.0-37.0 [facility] ([place] Comment on above: Order Comment: Pre-A dmission Testing Performed By: #### C BC, ADIFF, ANEU, BMP, ALB, GFR, ABOG, ANSG #### [address] [address] MCV (RBC) [Entitic vol] 90.3 fL Normal 80.0-94.0 [facility] ([place]) Comment on above: Order Comment: Pre-A dmission Testing Performed By: #### C BC, ADIFF, ANEU, BMP, ALB, GFR, ABOG, ANSG #### [address] [address] Platelet 406 10 3/mcL High 130-400 [facility] ([place] Comment on above: Order Comment: Pre-A dmission Testing Performed By: #### C BC, ADIFF, ANEU, BMP, ALB, GFR, ABOG, ANSG #### [address] [address] Platelet mean volume (Bld) [Entitic vol] 8.9 fL Normal 7.4-10.4 [facility] ([place] Comment on above: Order Comment: Pre-A dmission Testing Performed By: #### C BC, ADIFF, ANEU, BMP, ALB, GFR, ABOG, ANSG #### [address] [address] RBC 3.57 10 6/mcL Low 4.20-5.40 [facility] ([place] Comment on above: Order Comment: Pre-A dmission Testing Performed By: #### C BC, ADIFF, ANEU, BMP, ALB, GFR, ABOG, ANSG #### [address] [address] WBC 7.80 10 3/mcL Normal 4.60-10.80 [facility] ([place] Comment on above: Order Comment: Pre-A dmission Testing Performed By: #### C BC, ADIFF, ANEU, BMP, ALB, GFR, ABOG, ANSG #### [place] [address] Gel ABOon 05-15-2021 ABO/Rh Interp Positive Invalid Interpretation Code [facility] ([place] Comment on above: Performed By: #### C BC, ADIFF, ANEU, BMP, ALB, GFR, ABOG, ANSG #### [address] [address] Gel ABSon 05-15-2021 Antibody Screen Gel Negative Normal Pending sale to [facility] ([place] Comment on above: Performed By: #### C BC, ADIFF, ANEU, BMP, ALB, GFR, ABOG, ANSG #### [address] [address] PBNPon 05-15-2021 Natriuretic peptide B (Bld) [Mass/Vol] 410 pg/mL High 0-125 [facility] ([place] Comment on above: Result Comment: NT-p roBNP results of less than 300 pg/mL effectively rules out acute congestive heart failure with 99% negative predictive value. Performed By: #### P BNP, APTT, PRO #### [address] [address] PROon 05-15-2021 INR Coag (PPP) [Relative time] 1.8 {INR} High 0.9-1.2 [facility] [place] Comment on above: Result Comment: Yaniv lui Dose 2.0 - 3.0 High Dose 2.5 - 3.5 The recommended therapeutic range for oral anticoagulant therapy is: LOW RISK: Prophylaxis of venous thrombosis INR: 2.0 - 3.0 Treatment of pulmonary embolism 2.0 - 3.0 Prevention of systemic embolism 2.0 - 3.0 HIGH RISK: Mechanical prosthetic valves 2.5 - 3.5 Performed By: #### C BC, ADIFF, ANEU, BMP, ALB, GFR, ABOG, ANSG #### [id number] [place], [place] [address] PT Coag (PPP) [Time] 20.6 s High 9.7-14.3 [facility] ([place] Comment on above: Performed By: #### C BC, ADIFF, ANEU, BMP, ALB, GFR, ABOG, ANSG #### [id number] [place], [place] [address] Bacteria identified Cx Nom ( U)on 05-12-2021 Culture, urine Mixed Gram Pos & Gra m Neg Org [facility] Work Phone: Basophil percentageon 2021 Basophil percentage 0-5 SEEN /hpf 0-5 [facility] Work Phone: Basophil percentage Not Reportable [facility] Work Phone: Basophil percentage 110 mg/dL 74-106 [facility] Work Phone: Basophil percentage 8.0 g/dL 6.4-8.2 [facility] Work Phone: Basophil percentage 0.30 mg/dL 0.20-1.00 [facility] Work Phone: Basophil percentage 142 mmol/L 136-145 [facility] Work Phone: Basophil percentage 3.5 mmol/L 3.5-5.1 [facility] Work Phone: Basophil percentage 110 mmol/L 98-107 [facility] Work Phone: Basophil percentage 1.2 mmol/L 0.4-2.0 [facility] Work Phone: Basophils (Bld) [#/Vol] 10.5 10*3/uL 4.4-11.0 [facility] Work Phone: Bilirubin [Mass/Vol] 0.30 mg/dL 0.20-1.00 [facility] Work Phone: Comment on above: For patients on eltr ombopag therapy, use of Dimension [place] TBIL is not recommended. Chloride [Moles/Vol] 110 mmol/L 98-107 [facility] Work Phone: Glucose [Mass/Vol] 110 mg/dL 74-106 [facility] Work Phone: Comment on above: Fasting Glucose resu lt from 100 to 125 mg/dL suggests IMPAIRED HOMEOSTASIS per A.D.A. criteria. Lactate [Moles/Vol] 1.2 mmol/L 0.4-2.0 [facility] Work Phone: Potassium [Moles/Vol] 3.5 mmol/L 3.5-5.1 [facility] Work Phone: Protein [Mass/Vol] 8.0 g/dL 6.4-8.2 [facility] Work Phone: Sodium [Moles/Vol] 142 mmol/L 136-145 [facility] Work Phone: WBC (Bld) [#/Vol] 10.5 10*3/uL 4.4-11.0 [facility] Work Phone: Bilirubin Test strip Ql (U)o n 05-12-2021 Bilirubin Ql (U) Negative Negative [facility] Work Phone: Blood erythrocytes count (nu mber/volume)on 05-12-2021 RBC (Bld) [#/Vol] 3.57 10*6/uL 4.2-5.4 [facility] Work Phone: Blood hemoglobin measurement (mass/volume)on 05-12-2021 Hemoglobin (Bld) [Mass/Vol] 11.1 g/dL 12.0-15.0 [facility] Work Phone: Blood platelet mean volumeon 05-12-2021 Platelet mean volume (Bld) [Entitic vol] 10.5 fL 6.2-12.0 [facility] Work Phone: Culture, urineon 05-12-2021 Bacteria identified Cx Nom (U) Mixed Gram Pos & Gram Neg Org [facility] Work Phone: Determination of erythrocyte mean corpuscular volume (MCV)on 05-12-2021 MCV (RBC) [Entitic vol] 97.5 fL 81-99 [facility] Work Phone: Hematocrit Auto (Bld) [Volum e fraction]on 05-12-2021 Hematocrit (Bld) [Volume fraction] 34.8 % 37-47 [facility] Work Phone: INR in Blood by Coagulation assayon 05-12-2021 INR Coag (Bld) [Relative time] 1.5 {INR} [facility] Work Phone: Ketones Test strip Ql (U)on 05-12-2021 Ketones Ql (U) Negative Negative [facility] Work Phone: Laboratory - Chemistry and C hemistry - challengeon 05-12-2021 ALP [Catalytic activity/Vol] 122 U/L 45-117 [facility] Work Phone: ALT [Catalytic activity/Vol] 17 U/L 13-56 [facility] Work Phone: CO2 [Moles/Vol] 23.0 mmol/L 21.0-32.0 [facility] Work Phone: Globulin (S) [Mass/Vol] 4.8 g/dL 2.2-4.2 [facility] Work Phone: Urea nitrogen/Creatinine [Mass ratio] 27.4 mg/mg 10-20 [facility] Work Phone: Laboratory - Coagulationon 0 05-12-2021 aPTT Coag (Bld) [Time] 39.0 s 24.1-36.2 [facility] Work Phone: PT Coag (PPP) [Time] 17.8 s 11.7-14.9 [facility] Work Phone: Laboratory - Hematology and Cell countson 05-12-2021 Erythrocyte distribution width (RBC) [Entitic vol] 50.6 fL 35.1-43.9 [facility] Work Phone: Erythrocyte distribution width (RBC) [Ratio] 14.1 % 11.6-14.6 [facility] Work Phone: MCH (RBC) [Entitic mass] 31.1 pg 27.0-32.0 [facility] Work Phone: Nucleated RBC/100 WBC (Bld) [Ratio] 0 % 0-5 [facility] Work Phone: Laboratory - Microbiology an d Antimicrobial susceptibilityon 05-12-2021 Bacteria identified Cx Nom (Bld) No growth in 5 days. [facility] Work Phone: MCHC Auto (RBC) [Mass/Vol]on 05-12-2021 MCHC (RBC) [Mass/Vol] 31.9 g/dL 32-36 [facility] Work Phone: Mucus LM Ql (Urine sed)on Mucus Ql (Urine sed) 0 SEEN /hpf [facility] Work Phone: Nitrite Test strip Ql (U)on 05-12-2021 Nitrite Ql (U) Negative Negative [facility] Work Phone: No Panel Informationon 05-12 Respiratory Panel (PCR) [facility] Work Phone: No growth in 5 days. [facility] Work Phone: Estimated Creatinine Clearance Calc 28.22 ml/min [facility] Work Phone: [phone] Estimated GFR (MDRD) Amer 46 mL/min >60 [facility] Work [facility]: Comment on above: GFR Calc Estimated GFR (MDRD) Non-Af Amer 38 mL/min >60 [facility] Work Phone: Comment on above: Non- GFR Calc Troponin I High Sensitivity 4 pg/mL 3.0-54.[address] [facility] Work Phone: Comment on above: Please Note: [place] t Units and Gender Specific Reference Ranges. For more information see Policy Stat Procedure [place] High Sensitivity Troponin (TNIH) and attachments. 31.1 pg 27.0-32.0 [facility] Work Phone: 14.1 % 11.6-14.6 [facility] Work Phone: 50.6 fl 35.1-43.9 [facility] Work Phone: 0 % 0-[address] [facility] Work Phone: [phone] 17.8 SECONDS 11.7-14.9 [facility] Work Phone: 39.0 Seconds 24.1-36.[address] [facility] Work Phone: [phone] 38 mL/min >60 [facility] Work Phone: [phone] 46 mL/min >60 [facility] Work Phone: [phone] 28.22 ml/min [facility] Work Phone: 27.4 RATIO 10-20 [facility] Work Phone: 4.8 g/dL 2.2-4.2 [facility] Work Phone: 4 pg/mL 3.0-54.[address] [facility] Work Phone: 122 U/L 45-117 [facility] Work Phone: 17 U/L 13-56 [facility] Work Phone: 23.0 mmol/L 21.0-32.0 [facility] Work Phone: Platelets bldon 05-12-2021 Platelets (Bld) [#/Vol] 409 10*3/uL 150-450 [facility] Work Phone: Protein Test strip Ql (U)on 05-12-2021 Protein Ql (U) Negative Negative [facility] Work Phone: Serum or plasma albumin nga urement (mass/volume)on 05-12-2021 Albumin [Mass/Vol] 3.2 g/dL 3.2-5.0 [facility] Work Phone: Serum or plasma albumin/glob ulin mass ratioon 05-12-2021 Albumin/Globulin [Mass ratio] 0.7 {ratio} 0.9-2.4 [facility] Work Phone: Serum or plasma calcium nga urement (mass/volume)on 05-12-2021 Calcium [Mass/Vol] 9.7 mg/dL 8.5-10.1 [facility] Work Phone: Serum or plasma creatinine m easurement (mass/volume)on 05-12-2021 Creatinine [Mass/Vol] 1.46 mg/dL 0.55-1.02 [facility] Work Phone: Comment on above: The validity of the calculated GFR & GFRAA in patients over 70 years has not been determined. Clinical correlation is essential. Serum or plasma urea nitroge n measurement (mass/volume)on 05-12-2021 Urea nitrogen [Mass/Vol] 40 mg/dL 7-18 [facility] Work Phone: Squamous epithelial cells de tection in urine sediment by light microscopyon 05-12-2021 Epithelial cells.squamous LM Ql (Urine sed) 0 SEEN /hpf 5-10 [facility] Work Phone: Thin prep Papanicolaou smear with manual screeningon 05-12-2021 Thin prep Papanicolaou smear with manual screening 11 U/L 15-37 [facility] Work Phone: Thin prep Papanicolaou smear with manual screening 9 5-15 [facility] Work Phone: Urine blood detectionon - RBC Ql (U) Negative Negative [facility] Work Phone: RBC Ql (U) 0 SEEN /hpf 0-5 [facility] Work Phone: Urine clarityon 05-12-2021 Clarity (U) Clear Clear [facility] Work Phone: Urine color determinationon 05-12-2021 Color (U) Yellow Yellow [facility] Work Phone: Urine glucose detectionon Glucose Ql (U) Normal mg/dl Normal [facility] Work Phone: Urine leukocyte esterase det ection by dipstickon 05-12-2021 Leukocyte esterase Test strip Ql (U) 100 /ul Negative [facility] Work Phone: Urine pHon 05-12-2021 pH (U) 5.0 [pH] 5.0 - 8.0 [facility] Work Phone: Urine sediment bacteria coun t by microscopy (number/high power field)on 05-12-2021 Bacteria LM.HPF (Urine sed) [#/Area] 0 /[HPF] None Seen [facility] Work Phone: Urine specific gravity measu rementon 05-12-2021 Specific gravity (U) [Rel density] 1.015 1.002-1.03 0 [facility] Work Phone: Urobilinogen Auto test strip Ql (U)on 05-12-2021 Urobilinogen Ql (U) Normal mg/dl Normal [facility] Work Phone: Absolute lymphocyte counton 04-09-2021 Lymphocytes Auto (Unsp spec) [#/Vol] 1.37 10*3/uL 0.83-4.51 [facility] Work Phone: Basophil percentageon 2021 Basophil percentage 136 mg/dL <200 [facility] Work Phone: Basophil percentage 128 mg/dL <199 [facility] Work Phone: Cholesterol [Mass/Vol] 136 mg/dL <200 [facility] Work Phone: Comment on above: <200 mg/dL Desirable 200-240 mg/dL Borderline >240 mg/dL High Risk Triglyceride [Mass/Vol] 128 mg/dL [facility] Work Phone: Comment on above: The drugs N-Acetylcy steine and Metamizole may falsely depress this assay.Serum Triglycerides Reference Interval Normal <150 mg/dL Borderline high 150 - 199 mg/dL High 200 - 499 mg/dL Very High > or = 500 mg/dL Basophil percentage 114 mg/dL 74-106 [facility] Work Phone: Basophil percentage 7.7 g/dL 6.4-8.2 [facility] Work Phone: Basophil percentage 0.50 mg/dL 0.20-1.00 [facility] Work Phone: Basophil percentage 138 mmol/L 136-145 [facility] Work Phone: Basophil percentage 4.1 mmol/L 3.5-5.1 [facility] Work Phone: Basophil percentage 105 mmol/L 98-107 [facility] Work Phone: Basophils (Bld) [#/Vol] 8.0 10*3/uL 4.4-11.0 [facility] Work Phone: Basophils (Bld) [#/Vol] 5.4 10*3/uL 2.0-7.7 [facility] Work Phone: Basophils/100 WBC (Bld) 0.4 % 0-1 [facility] Work Phone: Basophils/100 WBC (Bld) 67.3 % 47-70 [facility] Work Phone: [phone] Basophils/100 WBC (Bld) 5.2 % 0-5 [facility] Work Phone: Bilirubin [Mass/Vol] 0.50 mg/dL 0.20-1.00 [facility] Work Phone: Comment on above: For patients on eltr ombopag therapy, use of Dimension [place] TBIL is not recommended. Chloride [Moles/Vol] 105 mmol/L 98-107 [facility] Work Phone: Eosinophils/100 WBC (Bld) 5.2 % 0-5 [facility] Work Phone: Glucose [Mass/Vol] 114 mg/dL 74-106 [facility] Work Phone: Comment on above: Fasting Glucose resu lt from 100 to 125 mg/dL suggests IMPAIRED HOMEOSTASIS per A.D.A. criteria. Neutrophils (Bld) [#/Vol] 5.4 10*3/uL 2.0-7.7 [facility] Work Phone: [phone] Neutrophils/100 WBC (Bld) 67.3 % 47-70 [facility] Work Phone: Potassium [Moles/Vol] 4.1 mmol/L 3.5-5.1 [facility] Work Phone: [phone] Protein [Mass/Vol] 7.7 g/dL 6.4-8.2 [facility] Work Phone: Sodium [Moles/Vol] 138 mmol/L 136-145 [facility] Work Phone: WBC (Bld) [#/Vol] 8.0 10*3/uL 4.4-11.0 [facility] Work Phone: Blood erythrocytes count (nu mber/volume)on 04-09-2021 RBC (Bld) [#/Vol] 3.80 10*6/uL 4.2-5.4 [facility] Work Phone: [phone] Blood hemoglobin measurement (mass/volume)on 04-09-2021 Hemoglobin (Bld) [Mass/Vol] 11.2 g/dL 12.0-15.0 [facility] Work Phone: [phone] Blood lymphocytes/100 leukoc yteson 04-09-2021 Lymphocytes/100 WBC (Bld) 17.1 % 19-41 [facility] Work Phone: Blood monocytes/100 leukocyt eson 04-09-2021 Monocytes/100 WBC (Bld) 9.4 % 0-10 [facility] Work Phone: Blood platelet mean volumeon 04-09-2021 Platelet mean volume (Bld) [Entitic vol] 10.4 fL 6.2-12.0 [facility] Work Phone: Determination of erythrocyte mean corpuscular volume (MCV)on 04-09-2021 MCV (RBC) [Entitic vol] 95.8 fL 81-99 [facility] Work Phone: Direct bilirubinon 2 Bilirubin.direct [Mass/Vol] 0.10 mg/dL 0.00-0.30 [facility] Work Phone: Hematocrit Auto (Bld) [Volum e fraction]on 04-09-2021 Hematocrit (Bld) [Volume fraction] 36.4 % 37-47 [facility] Work Phone: INR in Blood by Coagulation assayon 04-09-2021 INR Coag (Bld) [Relative time] 1.5 {INR} [facility] Work Phone: Laboratory - Chemistry and C hemistry - challengeon 04-09-2021 Free T4 [Mass/Vol] 1.25 ng/dL 0.76-1.46 [facility] Work Phone: ALP [Catalytic activity/Vol] 127 U/L 45-117 [facility] Work Phone: ALT [Catalytic activity/Vol] 17 U/L 13-56 [facility] Work Phone: CO2 [Moles/Vol] 28.0 mmol/L 21.0-32.0 [facility] Work Phone: Globulin (S) [Mass/Vol] 4.6 g/dL 2.2-4.2 [facility] Work Phone: Magnesium [Mass/Vol] 2.0 mg/dL 1.6-2.6 [facility] Work Phone: Urea nitrogen/Creatinine [Mass ratio] 22.4 mg/mg 10-20 [facility] Work Phone: Laboratory - Coagulationon 0 04-09-2021 aPTT Coag (Bld) [Time] 27.5 s 24.1-36.2 [facility] Work Phone: PT Coag (PPP) [Time] 17.1 s 11.7-14.9 [facility] Work Phone: Laboratory - Hematology and Cell countson 04-09-2021 Erythrocyte distribution width (RBC) [Entitic vol] 50.4 fL 35.1-43.9 [facility] Work Phone: Erythrocyte distribution width (RBC) [Ratio] 14.4 % 11.6-14.6 [facility] Work Phone: Immature granulocytes/100 WBC (Bld) 0.600 % 0.0-0.9 [facility] Work Phone: Comment on above: IG% - Immature Granu locytes (promyelocytes, myelocytes and metamyelocytes) > 1% indicates that a LEFT SHIFT is Present. MCH (RBC) [Entitic mass] 29.5 pg 27.0-32.0 [facility] Work Phone: Nucleated RBC/100 WBC (Bld) [Ratio] 0 % 0-5 [facility] Work Phone: MCHC Auto (RBC) [Mass/Vol]on 04-09-2021 MCHC (RBC) [Mass/Vol] 30.8 g/dL 32-36 [facility] Work Phone: No Panel Informationon 04-09 1.25 ng/dL 0.76-1.46 [facility] Work Phone: Estimated GFR (MDRD) Amer 38 mL/min >60 [facility] Work Phone: Comment on above: GFR Calc Estimated GFR (MDRD) Non-Af Amer 31 mL/min >60 [facility] Work Phone: Comment on above: Non- GFR Calc Thyroid Stimulating Hormone (TSH) 3.67 uIU/mL 0.358-3.74 [facility] Work Phone: 29.5 pg 27.0-32.0 [facility] Work Phone: 14.4 % 11.6-14.6 [facility] Work Phone: 50.4 fl 35.1-43.9 [facility] Work Phone: 0.600 % 0.0-0.9 [facility] Work Phone: 0 % 0-5 [facility] Work Phone: 17.1 SECONDS 11.7-14.9 [facility] Work Phone: 27.5 Seconds 24.1-36.2 [facility] Work Phone: 31 mL/min >60 [facility] Work Phone: 38 mL/min >60 [facility] Work Phone: 22.4 RATIO 10-20 [facility] Work Phone: 4.6 g/dL 2.2-4.2 [facility] Work Phone: 127 U/L 45-117 [facility] Work Phone: 17 U/L 13-56 [facility] Work Phone: 2.0 mg/dL 1.6-2.6 [facility] Work Phone: 28.0 mmol/L 21.0-32.0 [facility] Work Phone: 3.67 uIU/mL 0.358-3.74 [facility] Work Phone: Nasal Screen MRSA/MSSA [facility] Work Phone: Platelets bldon 04-09-2021 Platelets (Bld) [#/Vol] 312 10*3/uL 150-450 [facility] Work Phone: Serum or plasma albumin nga urement (mass/volume)on 04-09-2021 Albumin [Mass/Vol] 3.1 g/dL 3.2-5.0 [facility] Work Phone: Serum or plasma calcium nga urement (mass/volume)on 04-09-2021 Calcium [Mass/Vol] 9.5 mg/dL 8.5-10.1 [facility] Work Phone: Serum or plasma cholesterol in HDL measurement (mass/volume)on 04-09-2021 Cholesterol in HDL [Mass/Vol] 55 mg/dL >40 [facility] Work Phone: Comment on above: The drugs N-Acetylcy steine and Metamizole may falsely depress this assay. Reference Range HDL <40 mg/dL Low HDL Cholesterol HDL >or= 60 mg/dL High HDL Cholesterol Serum or plasma cholesterol in VLDL measurement (mass/volume)on 04-09-2021 Cholesterol in VLDL [Mass/Vol] 26 mg/dL 5-40 [facility] Work Phone: Serum or plasma cortisol molly surement (mass/volume)on 04-09-2021 Cortisol [Mass/Vol] 14.00 ug/dL 3.44-22.45 [facility] Work Phone: Comment on above: Adult (AM) 5.27 - 22 .45 ug/dL Adult (PM) 3.44 - 16.76 ug/dLPlease note revised CORTISOL reference range effective 2019. Serum or plasma creatinine m easurement (mass/volume)on 04-09-2021 Creatinine [Mass/Vol] 1.74 mg/dL 0.55-1.02 [facility] Work Phone: Comment on above: The validity of the calculated GFR & GFRAA in patients over 70 years has not been determined. Clinical correlation is essential. Serum or plasma low density lipoprotein (LDL) cholesterol measurement (mass/volume)on 04-09-2021 Cholesterol in LDL [Mass/Vol] 55 mg/dL 0-130 [facility] Work Phone: Serum or plasma urea nitroge n measurement (mass/volume)on 04-09-2021 Urea nitrogen [Mass/Vol] 39 mg/dL 7-18 [facility] Work Phone: Thin prep Papanicolaou smear with manual screeningon 04-09-2021 Thin prep Papanicolaou smear with manual screening 10 U/L 15-37 [facility] Work Phone: Thin prep Papanicolaou smear with manual screening 5 5-15 [facility] Work Phone: Whole blood hemoglobin A1c/t otal hemoglobin ratio (mass fraction)on 04-09-2021 HbA1c (Bld) [Mass fraction] 6.2 % 3.8-5.6 [facility] Work Phone: Comment on above: Normal < 5.7 % Predi abetic 5.7 - 6.4 % Diabetic >or= 6.5 % Please note range changes. Basophil percentageon 2021 Basophil percentage 97 mg/dL 74-106 [facility] Work Phone: Basophil percentage 139 mmol/L 136-145 [facility] Work Phone: Basophil percentage 4.2 mmol/L 3.5-5.1 [facility] Work Phone: Basophil percentage 106 mmol/L 98-107 [facility] Work Phone: Chloride [Moles/Vol] 106 mmol/L 98-[address] [facility] [address] [facility] Work Phone: Glucose [Mass/Vol] 97 mg/dL 74-106 [facility] Work Phone: Potassium [Moles/Vol] 4.2 mmol/L 3.5-5.1 [facility] Work Phone: Sodium [Moles/Vol] 139 mmol/L 136-145 [facility] Work Phone: Laboratory - Chemistry and C hemistry - challengeon 03-25-2021 CO2 [Moles/Vol] 25.0 mmol/L 21.0-32.0 [facility] Work Phone: Natriuretic peptide B (Bld) [Mass/Vol] 36.7 pg/mL 0-100 [facility] Work Phone: Urea nitrogen/Creatinine [Mass ratio] 17.5 mg/mg 10-20 [facility] Work Phone: No Panel Informationon 03-25 Estimated GFR (MDRD) Amer 37 mL/min >60 [facility] Work Phone: Comment on above: GFR Calc Estimated GFR (MDRD) Non-Af Amer 30 mL/min >60 [facility] Work Phone: Comment on above: Non- GFR Calc 30 mL/min >60 [facility] Work Phone: 37 mL/min >60 [facility] Work Phone: 17.5 RATIO 10-20 [facility] Work Phone: 25.0 mmol/L 21.0-32.0 [facility] Work Phone: 36.7 pg/mL 0-100 [facility] Work Phone: Serum or plasma calcium nga urement (mass/volume)on 03-25-2021 Calcium [Mass/Vol] 9.5 mg/dL 8.5-10.1 [facility] Work Phone: Serum or plasma creatinine m easurement (mass/volume)on 03-25-2021 Creatinine [Mass/Vol] 1.77 mg/dL 0.55-1.02 [facility] Work Phone: Comment on above: The validity of the calculated GFR & GFRAA in patients over 70 years has not been determined. Clinical correlation is essential. Serum or plasma urea nitroge n measurement (mass/volume)on 03-25-2021 Urea nitrogen [Mass/Vol] 31 mg/dL 7-18 [facility] Work Phone: Thin prep Papanicolaou smear with manual screeningon 03-25-2021 Thin prep Papanicolaou smear with manual screening 8 5-15 [facility] Work Phone: Laboratory - Microbiology an d Antimicrobial susceptibilityon 02-11-2021 SARS-CoV-2 (COVID-19) RNA SUSHMA+probe Ql (Unsp spec) Not detected Not Detect [facility] Work Phone: Comment on above: Normal Reference Ran ge: Not DetectedMethod:(RT-PCR) real-time reverse transcriptase PCRLuminex Preparis Instrument*The Food and Drug Administration (FDA) has issued an Emergency Use Authorization (EAU) for the Preparis SARS-CoV-2 Assay for the rapid detection of [...] percentageon 2020 Chloride [Moles/Vol] 107 mmol/L 98-107 [facility] Work Phone: Glucose [Mass/Vol] 104 mg/dL 74-106 [facility] Work Phone: Comment on above: Fasting Glucose resu lt from 100 to 125 mg/dL suggests IMPAIRED HOMEOSTASIS per A.D.A. criteria.Please note revised GLUCOSE reference range effective 2017. Potassium [Moles/Vol] 3.7 mmol/L 3.5-5.1 [facility] Work Phone: Sodium [Moles/Vol] 142 mmol/L 136-145 [facility] Work Phone: Laboratory - Chemistry and C hemistry - challengeon 02-09-2021 CO2 [Moles/Vol] 28.0 mmol/L 21.0-32.0 [facility] Work Phone: Urea nitrogen/Creatinine [Mass ratio] 18.2 mg/mg 10-20 [facility] Work Phone: No Panel Informationon 02-09 Estimated GFR (MDRD) Amer 39 mL/min >60 [facility] Work Phone: Comment on above: GFR Calc Estimated GFR (MDRD) Non-Af Amer 32 mL/min >60 [facility] Work Phone: Comment on above: Non- GFR Calc Serum or plasma calcium nga urement (mass/volume)on 02-09-2021 Calcium [Mass/Vol] 9.1 mg/dL 8.5-10.1 [facility] Work Phone: Serum or plasma creatinine m easurement (mass/volume)on 02-09-2021 Creatinine [Mass/Vol] 1.70 mg/dL 0.55-1.02 [facility] Work Phone: Comment on above: The validity of the calculated GFR & GFRAA in patients over 70 years has not been determined. Clinical correlation is essential. Serum or plasma urea nitroge n measurement (mass/volume)on 02-09-2021 Urea nitrogen [Mass/Vol] 31 mg/dL 7-18 [facility] Work Phone: Thin prep Papanicolaou smear with manual screeningon 02-09-2021 Thin prep Papanicolaou smear with manual screening 7 5-15 [facility] Work Phone: Bilirubin Test strip Ql (U)o n 01-29-2021 Bilirubin Ql (U) 1 mg/dL Negative [facility] Work Phone: Comment on above: COLOR OF URINE MAY A FFECT DIPSTICK RESULTS. Culture, urineon 01-29-2021 Bacteria identified Cx Nom (U) Klebsiella pneumoniae sp pneum [facility] Work Phone: Ketones Test strip Ql (U)on 01-29-2021 Ketones Ql (U) 5 mg/dl Negative [facility] Work Phone: Nitrite Test strip Ql (U)on 01-29-2021 Nitrite Ql (U) Positive Negative [facility] Work Phone: Protein Test strip Ql (U)on 01-29-2021 Protein Ql (U) 30 mg/dl Negative [facility] Work Phone: Urine blood detectionon 01-14 RBC Ql (U) 50 /ul Negative [facility] Work Phone: Urine clarityon 01-29-2021 Clarity (U) Cloudy Clear [facility] Work Phone: Urine color determinationon 01-29-2021 Color (U) Yellow Yellow [facility] Work Phone: Urine glucose detectionon Glucose Ql (U) Normal mg/dl Normal [facility] Work Phone: Urine leukocyte esterase det ection by dipstickon 01-29-2021 Leukocyte esterase Test strip Ql (U) 500 /ul Negative [facility] Work Phone: Urine pHon 01-29-2021 pH (U) 5.0 [pH] [facility] Work Phone: Urine specific gravity measu rementon 01-29-2021 Specific gravity (U) [Rel density] 1.015 [facility] Work Phone: Urobilinogen Auto test strip Ql (U)on 01-29-2021 Urobilinogen Ql (U) 1 mg/dl Normal [facility] Work Phone: Basophil percentageon 2020 Chloride [Moles/Vol] 105 mmol/L 98-107 [facility] Work Phone: Glucose [Mass/Vol] 95 mg/dL 74-106 [facility] Work Phone: Comment on above: Please note revised GLUCOSE reference range effective 2017. Potassium [Moles/Vol] 4.1 mmol/L 3.5-5.1 [facility] Work Phone: Sodium [Moles/Vol] 139 mmol/L 136-145 [facility] Work Phone: Laboratory - Chemistry and C hemistry - challengeon 01-26-2021 CO2 [Moles/Vol] 26.0 mmol/L 21.0-32.0 [facility] Work Phone: Urea nitrogen/Creatinine [Mass ratio] 16.0 mg/mg 10-20 [facility] Work Phone: No Panel Informationon 01-26 Estimated GFR (MDRD) Amer 41 mL/min >60 [facility] Work Phone: Comment on above: GFR Calc Estimated GFR (MDRD) Non-Af Amer 33 mL/min >60 [facility] Work Phone: Comment on above: Non- GFR Calc Serum or plasma calcium nga urement (mass/volume)on 01-26-2021 Calcium [Mass/Vol] 9.2 mg/dL 8.5-10.1 [facility] Work Phone: Serum or plasma creatinine m easurement (mass/volume)on 01-26-2021 Creatinine [Mass/Vol] 1.63 mg/dL 0.55-1.02 [facility] Work Phone: Comment on above: The validity of the calculated GFR & GFRAA in patients over 70 years has not been determined. Clinical correlation is essential. Serum or plasma urea nitroge n measurement (mass/volume)on 01-26-2021 Urea nitrogen [Mass/Vol] 26 mg/dL 7-18 [facility] Work Phone: Thin prep Papanicolaou smear with manual screeningon 01-26-2021 Thin prep Papanicolaou smear with manual screening 8 5-15 [facility] Work Phone: HISTOPLASMA AG BLOODon 02-01 HISTOPLASMA AG INTERP.BLD. Negative Normal [facility] Comment on above: Result Comment: REFE RENCE INTERVAL: NONE DETECTED Results reported as NG/ML in 0.4-19.0 ng/mL range Results above the limit of detection but below 0.4 ng/mL are reported as Positive, Below the Limit of Quantification Results above 19 ng/mL are reported as Positive, Above the Limit of QuantificationTest performed at [facility] [address] [facility] [address], [address] [place] [address] Performed By: #### C OAGS ####[facility] [place] [address] HISTOPLASMA AG,BLD NOT DETECTED Normal [facility] Comment on above: Performed By: #### C OAGS ####[facility] [place] [address] ANTIGLOMERULAR BM ABon 01-31 ANTIGLOMERULAR BM AB 5 units Normal 0-20 [facility] Comment on above: Result Comment: Nega tive 0 - 20 Weak Positive 21 - 30 Moderate to Strong Positive >30 Performed By: #### C OAGS ####[facility] [place] [address] Discharge Summaryon 01-29-20 Discharge Summary Send Summary:Dischar ge Summary Providers:Provider Role Provider Name? Referring Ernie Yusuf? Attending Ernie Yusuf? 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 She was thought to have asthmaexacerbation; [...] 2 weeks.November 2016- she went back to [facility] because of persistentshortness of breath; unclear what was prescribed this time.December 15, 2016- patient taken to [facility] for persistent shortnessof breath (as per the ). By this time, she hadn't complained of anyweakness and hadn't developed any delusions); as per the , [facility] and was evaluated and treated extensivelyand had antibiotic therapy as well (Sputum Cx [place] E [place] the hospitalization was complicated by Afib for whichshe underwent DCCV and was started on Apixaban afterward. mentionedthat about 5 days before discharge, she started developing weakness and washaving difficulty walking, also developed uncontrolled hyperglycemia with thesteroids; she was eventually [place] andapparently was doing well and was regaining strength (she was still onprednisone 5mg at this time)January 11 2017- patient was taken to ER from the rehab facility because ofworsening shortness of breath; as per the [facility], patient had been on IV [...] under fluoroscopy but unsuccessful.Hospital Course:On arrival to [facility], prednisone and methimazole were held. Patient hadimprovement [...] Services: Occupational Therapy [facility] daily Physical Therapy Orders: Eval and Treat ([facility]) dailyInfectious Disease: MRSA: [...] patient (as noted in the above attestation) [id number] Signatures:Ernie Yusuf) (Signed 28-Jan-2017 19:02) Authored: Summary Content, Ongoing Care, Signature/Cosignature/Atte station Co-Signer: Send Summary, Summary Content, Ongoing Care,Signature/Cosignature /AttestationBooDutch (DO (Resident)) (Signed 28-Jan-2017 10:43) Authored: Send Summary, Summary Content, Ongoing Care,Signature/Cosignature /AttestationLast Updated: 28-Jan-2017 19:02 by Ernie Yusuf)References:1. Data Referenced From Consult 24-Jan-2017 08:54 PM Normal [facility] GLUCOSE-POCTon 01-28-2017 Glucose mass conc 76 mg/dL Normal 74 - 99 [facility] Comment on above: Performed By: #### C OAGS ####[facility] [place] [address] ANCAon 01-27-2017 ANCA <1:20 Normal <1:20 [facility] Comment on above: Result Comment: The ANCA IFA is <1:20; therefore, no further testing will beperformed.INTERPRETIVE INFORMATION: Anti-Neutrophil Cyto Ab, IgGNeutrophil Cytoplasmic Antibodies (C-ANCA = granular cytoplasmicstaining, P-ANCA = perinuclear staining) are found in the serum ofover 90 percent of patients with certain necrotizing systemicvasculitides, and usually in less than 5 percent of patients withcollagen vascular disease or arthritis.Performed by [email or web address],[address] [place] [id number] v[address], Rehan Desir MD - Lab. Director Performed By: #### C OAGS ####[facility] [place] [address] ANTINUCLEAR ANTIBODYon 01-27 ANTINUCLEAR ANTIBODY Negative Normal NEGATIVE [facility] Comment on above: Performed By: #### R ENAL ####[facility] [place] [address] CBCon 01-27-2017 Erythrocyte distribution width Auto Ratio (RBC) 22.4 % High 11.5 - 14.5 [facility] Comment on above: Performed By: #### C K ####[facility] [place] [address] Erythrocytes (RBC) 2.51 x10E12/L Low 4.00 - 5.20 [facility] Comment on above: Performed By: #### C K ####[facility] [place] [address] Hematocrit (HCT) 24.9 % Low 36.0 - 46.0 [facility] Comment on above: Performed By: #### C K ####[facility] [place] [address] Hemoglobin mass conc (Bld) 7.5 g/dL Low 12.0 - 16.0 [facility] Comment on above: Performed By: #### C K ####[facility] [place] [address] MCHC mass conc (RBC) 30.1 g/dL Low 32.0 - 36.0 [facility] Comment on above: Performed By: #### C K ####[facility] [place] [address] MCV 99 fL Normal 80 - 100 [facility] Comment on above: Performed By: #### C K ####[facility] [place] [address] Nucleated erythrocytes 0.7 /100 WBC Abnormal 0.0-0.0 [facility] Comment on above: Performed By: #### C K ####[facility] [place] [address] Platelets 348 10*3/uL Normal 150 - 450 [facility] Comment on above: Performed By: #### C K ####[facility] [place] [address] WBC (Leukocytes) 8.6 10*3/uL Normal 4.4 - 11.3 [facility] Comment on above: Performed By: #### C K ####[facility] [place] [address],FLUID PATH REVIEWon 01-27-2017 PATH REVIEW-FLUID Mary.KAVYASON Normal [facility] Comment on above: Result Comment: By h er/his signature above, the Pathologist listed as making the final interpretation certifies that she/he has personally reviewed this case. MIXED ACUTE AND CHRONIC INFLAMMATORY CELLS PRESENT. Performed By: #### R ENAL ####[facility] [place] [address] CITRULLINE ANTIBODYon 2016 CITRULLINE ANTIBODY 2 U/ML Normal [facility] Comment on above: Result Comment: THE TEST FOR ANTIBODIES SPECIFIC FOR CYCLICCITRULLINATED PEPTIDE (CCP) HAS SHOWN TO BEVALUABLE IN THE DIAGNOSIS OF RHEUMATOIDARTHRITIS. THE DIAGNOSTIC VALUE OFANTIBODIES TO CCP IN JUVENILE RHEUMATOIDARTHRITIS PATIENTS HAS NOT BEEN DETERMINED.ANTIBODIES TO CENTROMERE OR SS-A AND MYELOMAIGG MAY BE REACTIVE IN THIS ASSAY. REF VALUES NEGATIVE < 3 U/ML POSITIVE >=3 U/ML Performed By: #### R ENAL ####[facility] [place] [address] EMR ADDONon 01-27-2017 ADDON CONFIRMATION REQUEST REC'D Normal [facility] Comment on above: Performed By: #### C K ####[facility] [place] [address] GLUCOSE-POCTon 01-27-2017 Glucose mass conc 136 mg/dL High 74 - 99 [facility] Comment on above: Performed By: #### C OAGS ####[facility] [place] [address] Glucose mass conc 113 mg/dL High 74 - 99 [facility] Comment on above: Performed By: #### R ENAL ####[facility] [place] [address] Glucose mass conc 88 mg/dL Normal 74 - 99 [facility] Comment on above: Performed By: #### C K ####[facility] [place] [address] RENAL FUNCTION PANELon 01-27 Albumin 2.1 g/dL Low 3.4 - 5.0 [facility] Comment on above: Performed By: #### C K ####[facility] [place] [address] Anion gap 14 mmol/L Normal 10 - 20 [facility] Comment on above: Performed By: #### C K ####[facility] [place] [address] Bicarbonate (HCO3) 22 mmol/L Normal 21 - 32 [facility] Comment on above: Performed By: #### C K ####[facility] [place] [address] Calcium 8.4 mg/dL Low 8.6 - 10.6 [facility] Comment on above: Performed By: #### C K ####[facility] [place] [address] Chloride 112 mmol/L High 98 - 107 [facility] Comment on above: Performed By: #### C K ####[facility] [place] [address] Creatinine 0.93 mg/dL Normal 0.50 - 1.05 [facility] Comment on above: Performed By: #### C K ####[facility] [place] [address] eGFR (non-black) mL/min/{1.73_m2} Normal >60 [facility] Comment on above: Performed By: #### C K ####[facility] [place] [address] Result Comment: CALC ULATIONS OF ESTIMATED GFR ARE PERFORMED USING THE MDRD STUDY EQUATION FOR THE IDMS-TRACEABLE CREATININE METHODS. CLIN CHEM 2007;53:766-72 Glucose mass conc 80 mg/dL Normal 74 - 99 [facility] Comment on above: Performed By: #### C K ####[facility] [place] [address] Phosphate 3.6 mg/dL Normal 2.5 - 4.9 [facility] Comment on above: Result Comment: The performance characteristics of phosphorus testing in heparinized plasma have been validated by the individual laboratory site where testing is performed. Testing on heparinized plasma is not approved by the FDA; however, such approval is not necessary. Performed By: #### C K ####[facility] [place] [address] Potassium molar conc 3.6 mmol/L Normal 3.5 - 5.3 [facility] Comment on above: Performed By: #### C K ####[facility] [place] [address] Sodium 144 mmol/L Normal 136 - 145 [facility] Comment on above: Performed By: #### C K ####[facility] [place] [address] Urea nitrogen 19 mg/dL Normal 6 - 23 [facility] Comment on above: Performed By: #### C K ####[facility] [place] [address] RESPIRATORY VIRAL PANELon ADENOVIRUS RVP Not Detected Normal Not Detected [facility] Comment on above: Result Comment: Dete cts Serotypes B and E. Detection of Serotype C may belimited. If Adenovirus infection is suspected and a NotDetected result is returned the sample should be re-testedfor adenovirus using an independent method (e.g. [employer] Adenovirus Quantitative Real-time PCR test). Performed By: #### C OAGS ####[facility] [place] [address] ENTEROVIRUS RVP Not Detected Normal Not Detected [facility] Comment on above: Result Comment: Cros s-reactivity has been observed between certainRhinovirus strains and the Enterovirus assay. Performed By: #### C OAGS ####[facility] [place] [address] HUMAN BOCAVIRUS RVP Not Detected Normal Not Detected [facility] Comment on above: Performed By: #### C OAGS ####[facility] [place] [address] HUMAN CORONAVIRUS RVP Not Detected Normal Not Detected [facility] Comment on above: Result Comment: The Human Coronavirus assay detects Human [id number], OC43, NL63, and HKU1. Performed By: #### C OAGS ####[facility] [place] [address] INFLUENZA A Not Detected Normal Not Detected [facility] Comment on above: Performed By: #### C OAGS ####[facility] [place] [address] INFLUENZA A [id number] Not Detected Normal Not Detected [facility] Comment on above: Performed By: #### C OAGS ####[facility] [place] [address] INFLUENZA B Not Detected Normal Not Detected [facility] Comment on above: Performed By: #### C OAGS ####[facility] [place] [address] METAPNEUMOVIRUS Not Detected Normal Not Detected [facility] Comment on above: Performed By: #### C OAGS ####[facility] [place] [address] PARAINFLUENZA RVP Not Detected Normal Not Detected [facility] Comment on above: Performed By: #### C OAGS ####[facility] [place] [address] RHINOVIRUS Not Detected Normal Not Detected [facility] Comment on above: Result Comment: Cros s-reactivity has been observed between certainRhinovirus strains and the Enterovirus assay.Target Enriched Multiplex Polymerase Chain Reaction(TEM-PCR) allows for the detection of multiple pathogensout of a single reaction. This test was developed anditsperformance characteristics determined by [employer].It has not been cleared or approved by the U.S. Food andDrug Administration. Results should be used inconjunctionwith clinical findings, and should not form the sole basisfor a diagnosis or treatment decision.TEM-PCR is a licensed technology of [employer]. Performed At:[facility] [address]ZeupnjzdTerrie Peres PhD HCLD (ABB)CLIA# [id number] Performed By: #### C OAGS ####[facility] [place] [address] RSV RVP Not Detected Normal Not Detected [facility] Comment on above: Result Comment: The Respiratory Syncytial Viral assay detects both types Aand B, however it does not distinguish between the two. Performed By: #### C OAGS ####[facility] [place] [address] THYROXINEon 01-27-2017 Thyroxine (T4) 7.1 ug/dL Normal 4.5 - 11.1 [facility] Comment on above: Performed By: #### R ENAL ####[facility] [place] [address] TOTAL PROTEIN AND GLUCOSE, C SFon 01-27-2017 GLUCOSE,CSF Canceled Normal [facility] Comment on above: Order Comment: TEST TOTAL PROTEIN AND GLUCOSE, CSF WAS CANCELLED, 01/27/2017 13:07 NOSPECIMEN RECEIVED IN LAB. Performed By: #### R ENAL ####[facility] [place] [address] TOTAL PROTEIN,CSF Canceled Normal [facility] Comment on above: Order Comment: TEST TOTAL PROTEIN AND GLUCOSE, CSF WAS CANCELLED, 01/27/2017 13:07 NOSPECIMEN RECEIVED IN LAB. Performed By: #### R ENAL ####[facility] [place] [address] TSHon 01-27-2017 Thyroid stimulating hormone (TSH) 5.48 m[IU]/L High 0.44 - 3.98 [facility] Comment on above: Result Comment: TSH testing is performed using different testing methodology at [facility] than at other [facility]. Direct result comparisons should only be made within the same method.. Patients receiving more than 5 mg/day of biotin may have interference in test results. A sample should be taken no sooner than eight hours after previous dose. Contact [phone] for additional information. Performed By: #### R ENAL ####[facility] [place] [address] VZV DNA BY PCR, QUALon 01-27 VZV DNA BY PCR Canceled Normal [facility] Comment on above: Order Comment: TEST VZV DNA BY PCR, QUAL WAS CANCELLED, 01/27/2017 13:07 NO SPECIMENRECEIVED IN LAB. Performed By: #### R ENAL ####[facility] [place] [address] [facility], [facility]/SM, [facility] [place] PATIENT: LAURA STARK LOCATION: [address]#: [id number] : 53 AGE: SEX: F ORDERED BY: OLEG YUSUF: BRONCHIAL COLLECTED: 01/26/17 13:36ANTIBIOTICS AT GAYLA.: RECEIVED : 01/26/17 13:39SITE: [facility] R E S U L T S AFB SMEAR FINAL 01/27/17 11:31 ACID FAST SMEAR - NEGATIVE. [facility] 03/16/17 10:59 NO MYCOBACTERIA ISOLATED. Normal [facility] Comment on above: Performed By: #### C OAGS ####[facility] [place] [address] ASPERGILLUS GALACTOMANNAN Dane OTTO 01-26-2017 ASPERGILLUS GALACTOMANNAN EIA,S 0.108 Normal <0.5 [facility] Comment on above: Result Comment: Refe rence [...] Platelia Aspergillus Galactomannan EIA is a product [employer] and is FDA approved for in vitro diagnostic use. __Performed At:[facility] [address]RoigtnodTerrie Peres PhD HCLD (ABB)CLIA# [id number] Performed By: #### C K ####[facility] [place] [address] CBCon 01-26-2017 Erythrocyte distribution width Auto Ratio (RBC) 22.5 % High 11.5 - 14.5 [facility] Comment on above: Performed By: #### E SRWS ####[facility] [place] [address] Erythrocytes (RBC) 2.51 x10E12/L Low 4.00 - 5.20 [facility] Comment on above: Performed By: #### E SRWS ####[facility] [place] [address] Hematocrit (HCT) 24.5 % Low 36.0 - 46.0 [facility] Comment on above: Performed By: #### E SRWS ####[facility] [place] [address] Hemoglobin mass conc (Bld) 7.5 g/dL Low 12.0 - 16.0 [facility] Comment on above: Performed By: #### E SRWS ####[facility] [place] [address] MCHC mass conc (RBC) 30.6 g/dL Low 32.0 - 36.0 [facility] Comment on above: Performed By: #### E SRWS ####[facility] [place] [address] MCV 98 fL Normal 80 - 100 [facility] Comment on above: Performed By: #### E SRWS ####[facility] [place] [address] Nucleated erythrocytes 1.0 /100 WBC Abnormal 0.0-0.0 [facility] Comment on above: Performed By: #### E SRWS ####[facility] [place] [address] Platelets 377 10*3/uL Normal 150 - 450 [facility] Comment on above: Performed By: #### E SRWS ####[facility] [place] [address] WBC (Leukocytes) 7.9 10*3/uL Normal 4.4 - 11.3 [facility] Comment on above: Performed By: #### E SRWS ####[facility] [place] [address] Erythrocyte distribution width Auto Ratio (RBC) Canceled Normal [facility] Comment on above: Order Comment: TEST CBC WAS CANCELLED, 01/26/2017 00:55 NO SPECIMEN RECEIVED IN LAB. Performed By: #### E SRWS ####[facility] [place] [address] Erythrocytes (RBC) Canceled Normal [facility] Comment on above: Order Comment: TEST CBC WAS CANCELLED, 01/26/2017 00:55 NO SPECIMEN RECEIVED IN LAB. Performed By: #### E SRWS ####[facility] [place] [address] Hematocrit (HCT) Canceled Normal [facility] Comment on above: Order Comment: TEST CBC WAS CANCELLED, 01/26/2017 00:55 NO SPECIMEN RECEIVED IN LAB. Performed By: #### E SRWS ####[facility] [place] [address] Hemoglobin mass conc (Bld) Canceled Normal [facility] Comment on above: Order Comment: TEST CBC WAS CANCELLED, 01/26/2017 00:55 NO SPECIMEN RECEIVED IN LAB. Performed By: #### E SRWS ####[facility] [place] [address] MCHC mass conc (RBC) Canceled Normal [facility] Comment on above: Order Comment: TEST CBC WAS CANCELLED, 01/26/2017 00:55 NO SPECIMEN RECEIVED IN LAB. Performed By: #### E SRWS ####[facility] [place] [address] MCV Canceled Normal [facility] Comment on above: Order Comment: TEST CBC WAS CANCELLED, 01/26/2017 00:55 NO SPECIMEN RECEIVED IN LAB. Performed By: #### E SRWS ####[facility] [place] [address] Nucleated erythrocytes Canceled Normal [facility] Comment on above: Order Comment: TEST CBC WAS CANCELLED, 01/26/2017 00:55 NO SPECIMEN RECEIVED IN LAB. Performed By: #### E SRWS ####[facility] [place] [address] Platelets Canceled Normal [facility] Comment on above: Order Comment: TEST CBC WAS CANCELLED, 01/26/2017 00:55 NO SPECIMEN RECEIVED IN LAB. Performed By: #### E SRWS ####[facility] [place] [address] WBC (Leukocytes) Canceled Normal [facility] Comment on above: Order Comment: TEST CBC WAS CANCELLED, 01/26/2017 00:55 NO SPECIMEN RECEIVED IN LAB. Performed By: #### E SRWS ####[facility] [place] [address] CELL COUNT AND DIFF, CSFon 1 03-29-2016 Basophils/100 WBC Auto (Bld) Canceled Normal [facility] Comment on above: Order Comment: TEST CELL COUNT AND DIFF, CSF WAS CANCELLED, 01/26/2017 00:48 NO SPECIMENRECEIVED IN LAB. Performed By: #### E SRWS ####[facility] [place] [address] BLASTS Canceled Normal [facility] Comment on above: Order Comment: TEST CELL COUNT AND DIFF, CSF WAS CANCELLED, 01/26/2017 00:48 NO SPECIMENRECEIVED IN LAB. Performed By: #### E SRWS ####[facility] [place] [address] CELLS COUNTED Canceled Normal [facility] Comment on above: Order Comment: TEST CELL COUNT AND DIFF, CSF WAS CANCELLED, 01/26/2017 00:48 NO SPECIMENRECEIVED IN LAB. Performed By: #### E SRWS ####[facility] [place] [address] CSF COMMENT Canceled Normal [facility] Comment on above: Order Comment: TEST CELL COUNT AND DIFF, CSF WAS CANCELLED, 01/26/2017 00:48 NO SPECIMENRECEIVED IN LAB. Performed By: #### E SRWS ####[facility] [place] [address] Eosinophils Canceled Normal [facility] Comment on above: Order Comment: TEST CELL COUNT AND DIFF, CSF WAS CANCELLED, 01/26/2017 00:48 NO SPECIMENRECEIVED IN LAB. Performed By: #### E SRWS ####[facility] [place] [address] Erythrocytes (RBC) Canceled Normal [facility] Comment on above: Order Comment: TEST CELL COUNT AND DIFF, CSF WAS CANCELLED, 01/26/2017 00:48 NO SPECIMENRECEIVED IN LAB. Performed By: #### E SRWS ####[facility] [place] [address] IMMATURE GRANS Canceled Normal [facility] Comment on above: Order Comment: TEST CELL COUNT AND DIFF, CSF WAS CANCELLED, 01/26/2017 00:48 NO SPECIMENRECEIVED IN LAB. Performed By: #### E SRWS ####[facility] [place] [address] Lymphocytes Canceled Normal [facility] Comment on above: Order Comment: TEST CELL COUNT AND DIFF, CSF WAS CANCELLED, 01/26/2017 00:48 NO SPECIMENRECEIVED IN LAB. Performed By: #### E SRWS ####[facility] [place] [address] MONONUCLEAR CELLS Canceled Normal [facility] Comment on above: Order Comment: TEST CELL COUNT AND DIFF, CSF WAS CANCELLED, 01/26/2017 00:48 NO SPECIMENRECEIVED IN LAB. Performed By: #### E SRWS ####[facility] [place] [address] Neutrophils Canceled Normal [facility] Comment on above: Order Comment: TEST CELL COUNT AND DIFF, CSF WAS CANCELLED, 01/26/2017 00:48 NO SPECIMENRECEIVED IN LAB. Performed By: #### E SRWS ####[facility] [place] [address] PLASMA CELLS Canceled Normal [facility] Comment on above: Order Comment: TEST CELL COUNT AND DIFF, CSF WAS CANCELLED, 01/26/2017 00:48 NO SPECIMENRECEIVED IN LAB. Performed By: #### E SRWS ####[facility] [place] [address] SUPERNATANT Canceled Normal [facility] Comment on above: Order Comment: TEST CELL COUNT AND DIFF, CSF WAS CANCELLED, 01/26/2017 00:48 NO SPECIMENRECEIVED IN LAB. Performed By: #### E SRWS ####[facility] [place] [address] TUBE # Canceled Normal [facility] Comment on above: Order Comment: TEST CELL COUNT AND DIFF, CSF WAS CANCELLED, 01/26/2017 00:48 NO SPECIMENRECEIVED IN LAB. Performed By: #### E SRWS ####[facility] [place] [address] UNCLASSIFIED CELLS Canceled Normal [facility] Comment on above: Order Comment: TEST CELL COUNT AND DIFF, CSF WAS CANCELLED, 01/26/2017 00:48 NO SPECIMENRECEIVED IN LAB. Performed By: #### E SRWS ####[facility] [place] [address] Urine, clarity Canceled Normal [facility] Comment on above: Order Comment: TEST CELL COUNT AND DIFF, CSF WAS CANCELLED, 01/26/2017 00:48 NO SPECIMENRECEIVED IN LAB. Performed By: #### E SRWS ####[facility] [place] [address] Urine, color Canceled Normal [facility] Comment on above: Order Comment: TEST CELL COUNT AND DIFF, CSF WAS CANCELLED, 01/26/2017 00:48 NO SPECIMENRECEIVED IN LAB. Performed By: #### E SRWS ####[facility] [place] [address] WBC (Leukocytes) Canceled Normal [facility] Comment on above: Order Comment: TEST CELL COUNT AND DIFF, CSF WAS CANCELLED, 01/26/2017 00:48 NO SPECIMENRECEIVED IN LAB. Performed By: #### E SRWS ####[facility] [place] [address] Basophils/100 WBC Auto (Bld) Canceled Normal [facility] Comment on above: Order Comment: TEST CELL COUNT AND DIFF, CSF WAS CANCELLED, 01/26/2017 00:48 NO SPECIMENRECEIVED IN LAB. Performed By: #### E SRWS ####[facility] [place] [address] BLASTS Canceled Normal [facility] Comment on above: Order Comment: TEST CELL COUNT AND DIFF, CSF WAS CANCELLED, 01/26/2017 00:48 NO SPECIMENRECEIVED IN LAB. Performed By: #### E SRWS ####[facility] [place] [address] CELLS COUNTED Canceled Normal [facility] Comment on above: Order Comment: TEST CELL COUNT AND DIFF, CSF WAS CANCELLED, 01/26/2017 00:48 NO SPECIMENRECEIVED IN LAB. Performed By: #### E SRWS ####[facility] [place] [address] CSF COMMENT Canceled Normal [facility] Comment on above: Order Comment: TEST CELL COUNT AND DIFF, CSF WAS CANCELLED, 01/26/2017 00:48 NO SPECIMENRECEIVED IN LAB. Performed By: #### E SRWS ####[facility] [place] [address] Eosinophils Canceled Normal [facility] Comment on above: Order Comment: TEST CELL COUNT AND DIFF, CSF WAS CANCELLED, 01/26/2017 00:48 NO SPECIMENRECEIVED IN LAB. Performed By: #### E SRWS ####[facility] [place] [address] Erythrocytes (RBC) Canceled Normal [facility] Comment on above: Order Comment: TEST CELL COUNT AND DIFF, CSF WAS CANCELLED, 01/26/2017 00:48 NO SPECIMENRECEIVED IN LAB. Performed By: #### E SRWS ####[facility] [place] [address] IMMATURE GRANS Canceled Normal [facility] Comment on above: Order Comment: TEST CELL COUNT AND DIFF, CSF WAS CANCELLED, 01/26/2017 00:48 NO SPECIMENRECEIVED IN LAB. Performed By: #### E SRWS ####[facility] [place] [address] Lymphocytes Canceled Normal [facility] Comment on above: Order Comment: TEST CELL COUNT AND DIFF, CSF WAS CANCELLED, 01/26/2017 00:48 NO SPECIMENRECEIVED IN LAB. Performed By: #### E SRWS ####[facility] [place] [address] MONONUCLEAR CELLS Canceled Normal [facility] Comment on above: Order Comment: TEST CELL COUNT AND DIFF, CSF WAS CANCELLED, 01/26/2017 00:48 NO SPECIMENRECEIVED IN LAB. Performed By: #### E SRWS ####[facility] [place] [address] Neutrophils Canceled Normal [facility] Comment on above: Order Comment: TEST CELL COUNT AND DIFF, CSF WAS CANCELLED, 01/26/2017 00:48 NO SPECIMENRECEIVED IN LAB. Performed By: #### E SRWS ####[facility] [place] [address] PLASMA CELLS Canceled Normal [facility] Comment on above: Order Comment: TEST CELL COUNT AND DIFF, CSF WAS CANCELLED, 01/26/2017 00:48 NO SPECIMENRECEIVED IN LAB. Performed By: #### E SRWS ####[facility] [place] [address] SUPERNATANT Canceled Normal [facility] Comment on above: Order Comment: TEST CELL COUNT AND DIFF, CSF WAS CANCELLED, 01/26/2017 00:48 NO SPECIMENRECEIVED IN LAB. Performed By: #### E SRWS ####[facility] [place] [address] TUBE # Canceled Normal [facility] Comment on above: Order Comment: TEST CELL COUNT AND DIFF, CSF WAS CANCELLED, 01/26/2017 00:48 NO SPECIMENRECEIVED IN LAB. Performed By: #### E SRWS ####[facility] [place] [address] UNCLASSIFIED CELLS Canceled Normal [facility] Comment on above: Order Comment: TEST CELL COUNT AND DIFF, CSF WAS CANCELLED, 01/26/2017 00:48 NO SPECIMENRECEIVED IN LAB. Performed By: #### E SRWS ####[facility] [place] [address] Urine, clarity Canceled Normal [facility] Comment on above: Order Comment: TEST CELL COUNT AND DIFF, CSF WAS CANCELLED, 01/26/2017 00:48 NO SPECIMENRECEIVED IN LAB. Performed By: #### E SRWS ####[facility] [place] [address] Urine, color Canceled Normal [facility] Comment on above: Order Comment: TEST CELL COUNT AND DIFF, CSF WAS CANCELLED, 01/26/2017 00:48 NO SPECIMENRECEIVED IN LAB. Performed By: #### E SRWS ####[facility] [place] [address] WBC (Leukocytes) Canceled Normal [facility] Comment on above: Order Comment: TEST CELL COUNT AND DIFF, CSF WAS CANCELLED, 01/26/2017 00:48 NO SPECIMENRECEIVED IN LAB. Performed By: #### E SRWS ####[facility] [place] [address] CELL COUNT AND DIFF, FLUIDon 01-26-2017 Eosinophils/100 leukocytes 1 % Normal [facility] Comment on above: Performed By: #### C K ####[facility] [place] [address] Erythrocytes (RBC) 0.82206 10*6/uL Normal [facility] Comment on above: Performed By: #### C K ####[facility] [place] [address] Lymphocytes/100 leukocytes 18 % Normal [facility] Comment on above: Performed By: #### C K ####[facility] [place] [address] MONONUCLEAR CELLS 60 % Normal [facility] Comment on above: Performed By: #### C K ####[facility] [place] [address] Neutrophils/100 leukocytes 21 % Normal [facility] Comment on above: Performed By: #### C K ####[facility] [place] [address] Urine, clarity Clear Normal CLEAR [facility] Comment on above: Performed By: #### C K ####[facility] [place] [address] Urine, color Colorless Normal YELLOW [facility] Comment on above: Performed By: #### C K ####[facility] [place] [address] WBC (Leukocytes) 0.165 10*3/uL Normal [facility] Comment on above: Performed By: #### C K ####[facility] [place] [address] CELLS COUNTED 100 Normal [facility] Comment on above: Performed By: #### C K ####[facility] [place] [address] Lab Specimen Source Bronchial Wash Normal U [facility] Comment on above: Performed By: #### C K ####[facility] [place] [address] Performed By: #### R ENAL ####[facility] [place] [address] CREATINE KINASEon 01-26-2017 Creatine kinase (CK) 19 U/L Normal 0 - 215 [facility] Comment on above: Performed By: #### E SRWS ####[facility] [place] [address] FUNGAL CULTURE/SM, [facility] FUNGAL CULTURE/SM, [facility] [place] PATIENT: LAURA MCGEE LOCATION: [address]#: [id number] : 53 AGE: SEX: F ORDERED BY: OLEG YUSUF: BRONCHIAL COLLECTED: 01/26/17 13:36ANTIBIOTICS AT GAYLA.: RECEIVED : 01/26/17 13:39SITE: [facility] R E S U L T S FUNGAL SMEAR FINAL 01/27/17 11:37 FLUORESCENT FUNGAL STAIN: NEGATIVE FUNGAL CULTURE/SM, [facility] [place] FINAL 02/15/17 09:41 NO FUNGI ISOLATED. Normal [facility] Comment on above: Performed By: #### C OAGS ####[facility] [place] [address] FUNGITELL BETA-D GLUCAN,Son 01-26-2017 Glucose mass conc mg/dL High <80 [facility] Comment on above: Result Comment: Inte rpretation: The Fungitell assay does not detectcertainfungal species such as the genus Cryptococcus (Julio César etal. 1991) which produces very low levels of(1-3)-Lawx-O-Wcmlah. The assay also does not detect theZygomycetes such as Absidia, Mucor and Rhizopus ( 1994) which are not known to produce(1-3)-Jfbm-U-Tkbsrd. In addition, the yeast phase ofBlastomyces dermatitidis produces little(1-3)-Dqhr-S-Gzpmwb and may not be detected by the [...] the performance characteristics for thesemodificationswere determined by [employer].If sample result is greater than 500 pg/mL, physician mayorder a titer of the sample. Please contact [employer] if you would like to order a retest of thissampleto obtain an actual value. Samples are held for 1 weekafter initial testing date. ___Performed At:[facility] [place] [address]FchptueeTerrie Peres PhD HCLD (ABB)CLIA# [id number] Performed By: #### C K ####[facility] [place] [address] GLUCOSE-POCTon 01-26-2017 Glucose mass conc 119 mg/dL High 74 - 99 [facility] Comment on above: Performed By: #### C K ####[facility] [place] [address] RENAL FUNCTION PANELon 01-26 Albumin 1.9 g/dL Low 3.4 - 5.0 [facility] Comment on above: Performed By: #### E SRWS ####[facility] [place] [address] Anion gap 12 mmol/L Normal 10 - 20 [facility] Comment on above: Performed By: #### E SRWS ####[facility] [place] [address] Bicarbonate (HCO3) 21 mmol/L Normal 21 - 32 [facility] Comment on above: Performed By: #### E SRWS ####[facility] [place] [address] Calcium 8.3 mg/dL Low 8.6 - 10.6 [facility] Comment on above: Performed By: #### E SRWS ####[facility] [place] [address] Chloride 110 mmol/L High 98 - 107 [facility] Comment on above: Performed By: #### E SRWS ####[facility] [place] [address] Creatinine 1.01 mg/dL Normal 0.50 - 1.05 [facility] Comment on above: Performed By: #### E SRWS ####[facility] [place] [address] eGFR (non-black) 67 mL/min/{1.73_m2} Normal >60 [facility] Comment on above: Result Comment: CALC ULATIONS OF ESTIMATED GFR ARE PERFORMED USING THE MDRD STUDY EQUATION FOR THE IDMS-TRACEABLE CREATININE METHODS. CLIN CHEM 2007;53:766-72 Performed By: #### E SRWS ####[facility] [place] [address] eGFR (non-black) 55 mL/min/{1.73_m2} Abnormal >60 [facility] Comment on above: Performed By: #### E SRWS ####[facility] [place] [address] Glucose mass conc 73 mg/dL Low 74 - 99 [facility] Comment on above: Performed By: #### E SRWS ####[facility] [place] [address] Phosphate 3.4 mg/dL Normal 2.5 - 4.9 [facility] Comment on above: Result Comment: The performance characteristics of phosphorus testing in heparinized plasma have been validated by the individual laboratory site where testing is performed. Testing on heparinized plasma is not approved by the FDA; however, such approval is not necessary. Performed By: #### E SRWS ####[facility] [place] [address] Potassium molar conc 3.7 mmol/L Normal 3.5 - 5.3 [facility] Comment on above: Performed By: #### E SRWS ####[facility] [place] [address] Sodium 139 mmol/L Normal 136 - 145 [facility] Comment on above: Performed By: #### E SRWS ####[facility] [place] [address] Urea nitrogen 20 mg/dL Normal 6 - 23 [facility] Comment on above: Performed By: #### E SRWS ####[facility] [place] [address] RESPIRATORY CULT./SM,LOWERon 01-26-2017 RESPIRATORY CULT./SM,LOWER PATIENT: LAURA STARK LOCATION: [facility] [id number]#: [id number] : 53 AGE: SEX: F ORDERED BY: [...] DOSE DEPENDENT NS=NONSUSCEPTIBLEX=REPORTE D IN ERROR Normal [facility] Comment on above: Performed By: #### C OAGS ####[facility] [place] [address] CHEST 1 VIEWon 12-13-2017 TH CHEST 1 VIEW Name: LAURA STARK [...] findingsas stated. This study was interpreted at [place], [place].Electronically signed by: MEEK LONG MD Normal [facility] Cytologyon 01-26-2017 [facility] Cytology Name DORETHA STARKccession #: [id number] of Procedure: 01/26/2017 Date Reported: 01/27/2017Date Received: [...] this case. Slide(s) initially screened by a [employer] at [place] [address] Clinical HistoryLUNG INFILTRATE Source of SpecimenA: BRONCHO-ALVEOLAR LAVAGE OF RIGHT UPPER LOBE, LINGULA Specimen Submitted as:A: BRONCHO-ALVEOLAR LAVAGE OF RIGHT UPPER LOBE, LINGULA pap non-medical staff services manager ThinPrep slide, H GMS PCPGross [id number] CLOUDY FLUID, WITH PARTICLES, REC'D IN JAR Normal [facility] Comment on above: Performed By: #### R ENAL ####[facility] [place] [address] [facility] Surgical Pathology Depar tmenton 01-26-2017 [facility] Surgical Pathology Department Name LAURA STARK Pathologist: ERNIE IRWIN,MDDate of Procedure: 01/26/2017Date Received: 01/26/2017Date Reported 01/28/2017Submitting Physician: HEAVEN KOCH MD, PhDLocation: [place] [address] Copy To/Referring/Attending:DALILA YUSUF MD Other External # [...] The specimen is submitted in toto in onecassette.[id number]/ 017 Normal [facility] Comment on above: Performed By: #### C OAGS ####[facility] [place] [address] VIRAL CULTUREon 01-26-2017 VIRAL CULTURE Viral culture will s upport the growth of the following viruses:Adenovirus, CMV, Enteroviruses, HSV, Influenza,Metapneumovirus, Parainfluenza,RSV, and VZV.Culture for Mumps,Rhinovirus,Rubella, and Rubeola virus requirea specific request.EBV,BK virus,SRAVAN virus, and Arboviruses likeWest Nile do not grow in culture.PCR is recommended for the detection of all Herpes family viruses in CSF.PATIENT: LAURA STARK LOCATION: [facility] [id number]#: [id number] : 53 AGE: SEX: F ORDERED BY: OLEG YUSUF: BRONCHIAL COLLECTED: 01/26/17 13:36ANTIBIOTICS AT GAYLA.: RECEIVED : 01/26/17 13:40SITE: FUENTES LOVELACE R E S U L T S VIRAL CULTURE FINAL 02/01/17 10:12 [...] all Herpes family viruses in CSF. Normal [facility] Comment on above: Performed By: #### C OAGS ####[facility] [place] [address] CBCon 01-25-2017 Erythrocyte distribution width Auto Ratio (RBC) 22.5 % High 11.5 - 14.5 [facility] Comment on above: Performed By: #### M DIFF ####[facility] [place] [address] Erythrocytes (RBC) 2.58 x10E12/L Low 4.00 - 5.20 [facility] Comment on above: Performed By: #### M DIFF ####[facility] [place] [address] Hematocrit (HCT) 25.2 % Low 36.0 - 46.0 [facility] Comment on above: Performed By: #### M DIFF ####[facility] [place] [address] Hemoglobin mass conc (Bld) 7.7 g/dL Low 12.0 - 16.0 [facility] Comment on above: Performed By: #### M DIFF ####[facility] [place] [address] MCHC mass conc (RBC) 30.6 g/dL Low 32.0 - 36.0 [facility] Comment on above: Performed By: #### M DIFF ####[facility] [place] [address] MCV 98 fL Normal 80 - 100 [facility] Comment on above: Performed By: #### M DIFF ####[facility] [place] [address] Nucleated erythrocytes 1.0 /100 WBC Abnormal 0.0-0.0 [facility] Comment on above: Performed By: #### M DIFF ####[facility] [place] [address] Platelets 377 10*3/uL Normal 150 - 450 [facility] Comment on above: Performed By: #### M DIFF ####[facility] [place] [address] WBC (Leukocytes) 7.9 10*3/uL Normal 4.4 - 11.3 [facility] Comment on above: Performed By: #### M DIFF ####[facility] [place] [address] Erythrocyte distribution width Auto Ratio (RBC) Canceled Normal [facility] Comment on above: Order Comment: TEST CBC WAS CANCELLED, 01/25/2017 00:17 NO SPECIMEN RECEIVED IN LAB. Performed By: #### M DIFF ####[facility] [place] [address] Erythrocytes (RBC) Canceled Normal [facility] Comment on above: Order Comment: TEST CBC WAS CANCELLED, 01/25/2017 00:17 NO SPECIMEN RECEIVED IN LAB. Performed By: #### M DIFF ####[facility] [place] [address] Hematocrit (HCT) Canceled Normal [facility] Comment on above: Order Comment: TEST CBC WAS CANCELLED, 01/25/2017 00:17 NO SPECIMEN RECEIVED IN LAB. Performed By: #### M DIFF ####[facility] [place] [address] Hemoglobin mass conc (Bld) Canceled Normal [facility] Comment on above: Order Comment: TEST CBC WAS CANCELLED, 01/25/2017 00:17 NO SPECIMEN RECEIVED IN LAB. Performed By: #### M DIFF ####[facility] [place] [address] MCHC mass conc (RBC) Canceled Normal [facility] Comment on above: Order Comment: TEST CBC WAS CANCELLED, 01/25/2017 00:17 NO SPECIMEN RECEIVED IN LAB. Performed By: #### M DIFF ####[facility] [place] [address] MCV Canceled Normal [facility] Comment on above: Order Comment: TEST CBC WAS CANCELLED, 01/25/2017 00:17 NO SPECIMEN RECEIVED IN LAB. Performed By: #### M DIFF ####[id number] [place] [address] Nucleated erythrocytes Canceled Normal [facility] Comment on above: Order Comment: TEST CBC WAS CANCELLED, 01/25/2017 00:17 NO SPECIMEN RECEIVED IN LAB. Performed By: #### M DIFF ####[id number] [place] [address] Platelets Canceled Normal [facility] Comment on above: Order Comment: TEST CBC WAS CANCELLED, 01/25/2017 00:17 NO SPECIMEN RECEIVED IN LAB. Performed By: #### M DIFF ####[facility] [place] [address] WBC (Leukocytes) Canceled Normal [facility] Comment on above: Order Comment: TEST CBC WAS CANCELLED, 01/25/2017 00:17 NO SPECIMEN RECEIVED IN LAB. Performed By: #### M DIFF ####[facility] [place] [address] CORTISOL, A.M.on 01-25-2017 CORTISOL, A.M. 16.0 ug/dL Normal 5.0 - 20.0 [facility] Comment on above: Performed By: #### M DIFF ####[facility] [place] [address] CORTISOL,UNSPECIFIEDon 01-25 CORTISOL,UNSPECIFIED 29.6 ug/dL High 2.5 - 20.0 [facility] Comment on above: Performed By: #### E SRWS ####[facility] [place] [address] CORTISOL,UNSPECIFIED 33.6 ug/dL High 2.5 - 20.0 [facility] Comment on above: Performed By: #### E SRWS ####[facility] [place] [address] CORTISOL,UNSPECIFIED 23.7 ug/dL High 2.5 - 20.0 [facility] Comment on above: Performed By: #### M DIFF ####[facility] [place] [address] DUPLEX EXTREMITY VEINS LMTD/ UNILATon 01-25-2017 DUPLEX EXTREMITY VEINS LMTD/UNILAT Name: LAURA STARK STUDY:DUPLEX EXTREMITY VEINS LMTD/UNILAT; 01/25/2017 8:40 pm INDICATION:Signs/Symptoms: right upper extremity, swollen and painful. COMPARISON:None. ORDERING CLINICIAN:DUTCH CORREA TECHNIQUE:Real time ultrasound evaluation was performed of [...] extremity.Electronically signed by: JOO VALLE MD Normal [facility] EMR ADDONon 01-25-2017 ADDON CONFIRMATION REQUEST REC'D Normal [facility] Comment on above: Performed By: #### E SRWS ####[facility] [place] [address] ADDON CONFIRMATION REQUEST REC'D Normal [facility] Comment on above: Performed By: #### M DIFF ####[facility] [place] [address] GLUCOSE-POCTon 01-25-2017 Glucose mass conc 86 mg/dL Normal 74 - 99 [facility] Comment on above: Performed By: #### M DIFF ####[facility] [place] [address] Glucose mass conc 126 mg/dL High 74 - 99 [facility] Comment on above: Performed By: #### M ORP2 ####[facility] [place] [address] HEPARIN ASSAY,UFHon 01-26-20 17 HEPARIN ASSAY,UFH 0.3 IU/mL Normal [facility] Comment on above: Result Comment: The therapeutic reference range for UFH may be either 0.3-0.6 IU/mL or 0.3-0.7 IU/mL based on the clinical setting for anticoagulant therapy and the associated nomogram used. For heparin dosing guidelines based on clinical scenario and Heparin Assay results, please refer to local Pharmacy and the [facility] Guidelines for Anticoagulation therapy available on the [facility] intranet at:[email or web address]/Pharmacy/Pages/[facility]_Guidelines_for_Anticoagu.aspx Performed By: #### M DIFF ####[facility] [place] [address] HEPARIN ASSAY,UFH 0.3 IU/mL Normal [facility] Comment on above: Result Comment: The therapeutic reference range for UFH may be either 0.3-0.6 IU/mL or 0.3-0.7 IU/mL based on the clinical setting for anticoagulant therapy and the associated nomogram used. For heparin dosing guidelines based on clinical scenario and Heparin Assay results, please refer to local Pharmacy and the [facility] Guidelines for Anticoagulation therapy available on the [facility] intranet at:[email or web address]/Pharmacy/Pages/[facility]_Guidelines_for_Anticoagu.aspx Performed By: #### M DIFF ####[facility] [place] [address] RAD OUTSIDE EXAM OVER READon 01-25-2017 RAD OUTSIDE EXAM OVER READ Name: LAURA STARK STUDY:RAD OUTSIDE EXAM OVER READ; 01/25/2017 6:19 pm INDICATION:SHORTNESS OF BREATH, CT ABDOMEN AND PELVIS DATED 01/12/2017 [place], LOADED TO PACS FROM CD ON 01/25/2017 AT 3:40 P.M., DICTATIONREQUIRED FOR MEDICAL NECESSITY, ORIGINAL DICTATION NOT AVAILABLE. COMPARISON:CT chest dated 01/23/2017 ORDERING CLINICIAN:ERNIE YUSUF TECHNIQUE:Submitted for interpretation [place] the [place]'s name and dated 01/12/17 (available forinterpretation at [facility] on01/25/17). These contain a airplane refueler and [address] imagesthrough [...] findingsas stated. This study was interpreted at [facility], [place], [place].Electronically signed by: CECI FOLEY MD Normal [facility] RAD OUTSIDE EXAM OVER READ Name: LAURA [...] findingsas stated. This study was interpreted at [facility], [place], [place].Electronically signed by: MEEK LONG MD [facility] RENAL FUNCTION PANELon 01-25 Albumin 2.0 g/dL Low 3.4 - 5.0 [facility] Comment on above: Performed By: #### M DIFF ####[facility] [place] [address] Anion gap 13 mmol/L Normal 10 - 20 [facility] Comment on above: Performed By: #### M DIFF ####[facility] [place] [address] Bicarbonate (HCO3) 21 mmol/L Normal 21 - 32 [facility] Comment on above: Performed By: #### M DIFF ####[facility] [place] [address] Calcium 8.6 mg/dL Normal 8.6 - 10.6 [facility] Comment on above: Performed By: #### M DIFF ####[facility] [place] [address] Chloride 110 mmol/L High 98 - 107 [facility] Comment on above: Performed By: #### M DIFF ####[facility] [place] [address] Creatinine 1.07 mg/dL High 0.50 - 1.05 [facility] Comment on above: Performed By: #### M DIFF ####[facility] [place] [address] eGFR (non-black) 63 mL/min/{1.73_m2} Normal >60 [facility] Comment on above: Result Comment: CALC ULATIONS OF ESTIMATED GFR ARE PERFORMED USING THE MDRD STUDY EQUATION FOR THE IDMS-TRACEABLE CREATININE METHODS. CLIN CHEM 2007;53:766-72 Performed By: #### M DIFF ####[facility] [place] [address] eGFR (non-black) 52 mL/min/{1.73_m2} Abnormal >60 [facility] Comment on above: Performed By: #### M DIFF ####[facility] [place] [address] Glucose mass conc 74 mg/dL Normal 74 - 99 [facility] Comment on above: Performed By: #### M DIFF ####[facility] [place] [address] Phosphate 3.5 mg/dL Normal 2.5 - 4.9 [facility] Comment on above: Result Comment: The performance characteristics of phosphorus testing in heparinized plasma have been validated by the individual laboratory site where testing is performed. Testing on heparinized plasma is not approved by the FDA; however, such approval is not necessary. Performed By: #### M DIFF ####[facility] [place] [address] Potassium molar conc 3.9 mmol/L Normal 3.5 - 5.3 [facility] Comment on above: Performed By: #### M DIFF ####[facility] [place] [address] Sodium 140 mmol/L Normal 136 - 145 [facility] Comment on above: Performed By: #### M DIFF ####[facility] [place] [address] Urea nitrogen 28 mg/dL High 6 - 23 [facility] Comment on above: Performed By: #### M DIFF ####[facility] [place] [address] RESPIRATORY VIRAL PANELon Lab Specimen Source Nasal Swab Normal [facility] Comment on above: Performed By: #### C OAGS ####[facility] [place] [address] RHEUMATOID FACTORon 01-26-20 17 RHEUMATOID FACTOR <10 Normal 0 - 15 [facility] Comment on above: Performed By: #### M DIFF ####[facility] [place] [address] ACTHon 01-24-2017 ACTH Canceled Normal [facility] Comment on above: Order Comment: TEST ACTH WAS CANCELLED, 01/24/2017 19:08 LAB ERROR. Performed By: #### M ORP2 ####[facility] [place] [address] ANTINUCLEAR ANTIBODYon 01-24 ANTINUCLEAR ANTIBODY Negative Normal NEGATIVE [facility] Comment on above: Performed By: #### M ORP2 ####[facility] [place] [address] BNPon 01-24-2017 BNP 88 pg/mL Normal 0 - 99 [facility] Comment on above: Result Comment: . <1 00 pg/mL - Heart failure bpyylnbw290-470 pg/mL - Intermediate probability of acute heart. failure exacerbation. Correlate with clinical. context and patient history. >=300 pg/mL - Heart Failure likely. Correlate with clinical. context and patient history.BNP testing is performed using different testingmethodology at [facility] than at [facility]. Direct result comparisons shouldonly be made within the same method. Performed By: #### M ORP2 ####[facility] [place] [address] CBCon 01-24-2017 Erythrocyte distribution width Auto Ratio (RBC) 22.8 % High 11.5 - 14.5 [facility] Comment on above: Performed By: #### C BCDF ####[facility] [place] [address] Erythrocytes (RBC) 2.50 x10E12/L Low 4.00 - 5.20 [facility] Comment on above: Performed By: #### C BCDF ####[facility] [place] [address] Hematocrit (HCT) 24.1 % Low 36.0 - 46.0 [facility] Comment on above: Performed By: #### C BCDF ####[facility] [place] [address] Hemoglobin mass conc (Bld) 7.4 g/dL Low 12.0 - 16.0 [facility] Comment on above: Performed By: #### C BCDF ####[facility] [place] [address] MCHC mass conc (RBC) 30.7 g/dL Low 32.0 - 36.0 [facility] Comment on above: Performed By: #### C BCDF ####[facility] [place] [address] MCV 96 fL Normal 80 - 100 [facility] Comment on above: Performed By: #### C BCDF ####[facility] [place] [address] Nucleated erythrocytes 0.7 /100 WBC Abnormal 0.0-0.0 [facility] Comment on above: Performed By: #### C BCDF ####[facility] [place] [address] Platelets 362 10*3/uL Normal 150 - 450 [facility] Comment on above: Performed By: #### C BCDF ####[facility] [place] [address] WBC (Leukocytes) 8.2 10*3/uL Normal 4.4 - 11.3 [facility] Comment on above: Performed By: #### C BCDF ####[facility] [place] [address] COAGULATION SCREENon 017 aPTT 34 s Normal 25 - 36 [facility] Comment on above: Result Comment: THE APTT IS NO LONGER USED FOR MONITORING UNFRACTIONATED HEPARIN THERAPY. FOR MONITORING HEPARIN THERAPY, USE THE HEPARIN ASSAY. Performed By: #### M ORP2 ####[facility] [place] [address] INR Coag RelTime (PPP) 1.2 {INR} High 0.9 - 1.1 [facility] Comment on above: Performed By: #### M ORP2 ####[facility] [place] [address] Prothrombin time (PT) Coag time (PPP) 13.2 s High 9.8 - 12.7 [facility] Comment on above: Performed By: #### M ORP2 ####[facility] [place] [address] GLUCOSE-POCTon 01-24-2017 Glucose mass conc 80 mg/dL Normal 74 - 99 [facility] Comment on above: Performed By: #### M ORP2 ####[facility] [place] [address] Glucose mass conc 96 mg/dL Normal 74 - 99 [facility] Comment on above: Performed By: #### M ORP2 ####[facility] [place] [address] HEPARIN ASSAY,UFHon 01-25-20 17 HEPARIN ASSAY,UFH 0.5 IU/mL Normal [facility] Comment on above: Result Comment: The therapeutic reference range for UFH may be either 0.3-0.6 IU/mL or 0.3-0.7 IU/mL based on the clinical setting for anticoagulant therapy and the associated nomogram used. For heparin dosing guidelines based on clinical scenario and Heparin Assay results, please refer to local Pharmacy and [facility] Guidelines for Anticoagulation therapy available on the [facility] intranet at:[email or web address]/Pharmacy/Pages/[facility]_Guidelines_for_Anticoagu.aspx Performed By: #### C BCDF ####[facility] [place] [address] HEPARIN ASSAY,UFH 0.6 IU/mL Normal [facility] Comment on above: Result Comment: The therapeutic reference range for UFH may be either 0.3-0.6 IU/mL or 0.3-0.7 IU/mL based on the clinical setting for anticoagulant therapy and the associated nomogram used. For heparin dosing guidelines based on clinical scenario and Heparin Assay results, please refer to local Pharmacy and the [facility] Guidelines for Anticoagulation therapy available on the [facility] intranet at:[email or web address]/Pharmacy/Pages/[facility]_Guidelines_for_Anticoagu.aspx Performed By: #### C BCDF ####[facility] [place] [address] HEAD WO CONTRASTon NR CT HEAD WO CONTRAST ent Name: LAURA STARK STUDY:CT HEAD WO CONTRAST; 01/24/2017 12:27 pm INDICATION:Signs/Symptoms: encephalopathy. COMPARISON:None. ORDERING CLINICIAN:DUTCH CORREA TECHNIQUE:Axial CT images images of the head [...] as well. [facility]Electronical ly signed by: ERNIE FERREIRA MD [facility] NR SPINAL PUNCTURE, LUMBAR, DIAGNOSTICon 01-24-2017 NR SPINAL PUNCTURE, LUMBAR, DIAGNOSTIC Name: LAURA STARK STUDY:NR SPINAL PUNCTURE, LUMBAR, DIAGNOSTIC; 01/24/2017 4:50 pm INDICATION:Signs/Symptoms: encephalopathy. COMPARISON:CT of the head dated 01/24/2017 ORDERING CLINICIAN:DUTCH CORREA TECHNIQUE:After discussion of risks, benefits, and alternatives, [...] [place]. This studywas performed and interpreted at [facility]. I agree with the procedural description and thefindings as stated.Electronically signed by: VETO DICK MD Normal [facility] RENAL FUNCTION PANELon 01-24 Albumin 1.9 g/dL Low 3.4 - 5.0 [facility] Comment on above: Performed By: #### C BCDF ####[facility] [place] [address] Anion gap 9 mmol/L Low 10 - 20 [facility] Comment on above: Performed By: #### C BCDF ####[facility] [place] [address] Bicarbonate (HCO3) 22 mmol/L Normal 21 - 32 [facility] Comment on above: Performed By: #### C BCDF ####[facility] [place] [address] Calcium 8.5 mg/dL Low 8.6 - 10.6 [facility] Comment on above: Performed By: #### C BCDF ####[facility] [place] [address] Chloride 113 mmol/L High 98 - 107 [facility] Comment on above: Performed By: #### C BCDF ####[facility] [place] [address] Creatinine 1.20 mg/dL High 0.50 - 1.05 [facility] Comment on above: Performed By: #### C BCDF ####[facility] [place] [address] eGFR (non-black) 45 mL/min/{1.73_m2} Abnormal >60 [facility] Comment on above: Performed By: #### C BCDF ####[facility] [place] [address] eGFR (non-black) 54 mL/min/{1.73_m2} Abnormal >60 [facility] Comment on above: Result Comment: CALC ULATIONS OF ESTIMATED GFR ARE PERFORMED USING THE MDRD STUDY EQUATION FOR THE IDMS-TRACEABLE CREATININE METHODS. CLIN CHEM 2007;53:766-72 Performed By: #### C BCDF ####[facility] [place] [address] Glucose mass conc 105 mg/dL High 74 - 99 [facility] Comment on above: Performed By: #### C BCDF ####[facility] [place] [address] Phosphate 3.2 mg/dL Normal 2.5 - 4.9 [facility] Comment on above: Result Comment: The performance characteristics of phosphorus testing in heparinized plasma have been validated by the individual laboratory site where testing is performed. Testing on heparinized plasma is not approved by the FDA; however, such approval is not necessary. Performed By: #### C BCDF ####[facility] [place] [address] Potassium molar conc 3.9 mmol/L Normal 3.5 - 5.3 [facility] Comment on above: Performed By: #### C BCDF ####[facility] [place] [address] Sodium 140 mmol/L Normal 136 - 145 [facility] Comment on above: Performed By: #### C BCDF ####[facility] [place] [address] Urea nitrogen 34 mg/dL High 6 - 23 [facility] Comment on above: Performed By: #### C BCDF ####[facility] [place] [address] VZV DNA BY PCR, QUALon 01-24 Lab Specimen Source Cerebral spinal fluid Normal [facility] Comment on above: Order Comment: TEST VZV DNA BY PCR, QUAL WAS CANCELLED, 01/27/2017 13:07 NO SPECIMENRECEIVED IN LAB. Performed By: #### R ENAL ####[facility] [place] [address] Order Comment: TEST TOTAL PROTEIN AND GLUCOSE, CSF WAS CANCELLED, 01/27/2017 13:07 NOSPECIMEN RECEIVED IN LAB. C-REACTIVE PROTEINon 017 C reactive protein (CRP) 8.62 mg/dL Abnormal [facility] Comment on above: Result Comment: REF VALUE< 1.00 Performed By: #### C BCDF ####[facility] [place] [address] CBCon 01-23-2017 Erythrocyte distribution width Auto Ratio (RBC) 23.5 % High 11.5 - 14.5 [facility] Comment on above: Performed By: #### C MP ####[facility] [place] [address] Erythrocytes (RBC) 2.62 x10E12/L Low 4.00 - 5.20 [facility] Comment on above: Performed By: #### C MP ####[facility] [place] [address] Hematocrit (HCT) 25.7 % Low 36.0 - 46.0 [facility] Comment on above: Performed By: #### C MP ####[facility] [place] [address] Hemoglobin mass conc (Bld) 7.6 g/dL Low 12.0 - 16.0 [facility] Comment on above: Performed By: #### C MP ####[facility] [place] [address] MCHC mass conc (RBC) 29.6 g/dL Low 32.0 - 36.0 [facility] Comment on above: Performed By: #### C MP ####[facility] [place] [address] MCV 98 fL Normal 80 - 100 [facility] Comment on above: Performed By: #### C MP ####[facility] [place] [address] Nucleated erythrocytes 1.2 /100 WBC Abnormal 0.0-0.0 [facility] Comment on above: Performed By: #### C MP ####[facility] [place] [address] Platelets 448 10*3/uL Normal 150 - 450 [facility] Comment on above: Performed By: #### C MP ####[facility] [place] [address] WBC (Leukocytes) 9.2 10*3/uL Normal 4.4 - 11.3 [facility] Comment on above: Performed By: #### C MP ####[facility] [place] [address] ESR-WESTERGRENon 01-23-2017 ESR-WESTERGREN >140 High 0 - 30 [facility] Comment on above: Performed By: #### C BCDF ####[facility] [place] [address] GLUCOSE-POCTon 01-23-2017 Glucose mass conc 240 mg/dL High 74 - 99 [facility] Comment on above: Performed By: #### C BCDF ####[facility] [place] [address] Glucose mass conc 159 mg/dL High 74 - 99 [facility] Comment on above: Performed By: #### C BCDF ####[facility] [place] [address] Glucose mass conc 134 mg/dL High 74 - 99 [facility] Comment on above: Performed By: #### C MP ####[facility] [place] [address] Glucose mass conc 96 mg/dL Normal 74 - 99 [facility] Comment on above: Performed By: #### C MP ####[facility] [place] [address] Glucose mass conc 107 mg/dL High 74 - 99 [facility] Comment on above: Performed By: #### C MP ####[facility] [place] [address] HEPARIN ASSAY,UFHon 01-24-20 17 HEPARIN ASSAY,UFH 0.8 IU/mL Normal [facility] Comment on above: Result Comment: The therapeutic reference range for UFH may be either 0.3-0.6 IU/mL or 0.3-0.7 IU/mL based on the clinical setting for anticoagulant therapy and the associated nomogram used. For heparin dosing guidelines based on clinical scenario and Heparin Assay results, please refer to local Pharmacy and the [facility] Guidelines for Anticoagulation therapy available on the [facility] intranet at:[email or web address]/[facility]_Guidelines_for_Anticoagu.aspx Performed By: #### C BCDF ####[facility] [place] [address] HEPARIN ASSAY,UFH 1.1 IU/mL Abnormal [facility] Comment on above: Order Comment: Emily VALLE to DIANN MCDONALD, 01/23/2017 14:44 Result Comment: The therapeutic reference range for UFH may be either 0.3-0.6 IU/mL or 0.3-0.7 IU/mL based on the clinical setting for anticoagulant therapy and the associated nomogram used. For heparin dosing guidelines based on clinical scenario and Heparin Assay results, please refer to local Pharmacy and [facility] Guidelines for Anticoagulation therapy available on the [facility] intranet at:[email or web address]_Guidelines_for_Anticoagu.aspx Called- RB to DIANN VITOIRAZACHARY, 01/23/2017 14:44 Performed By: #### C BCDF ####[facility] [place] [address] HEPARIN ASSAY,UFH 1.0 IU/mL Normal [facility] Comment on above: Result Comment: The therapeutic reference range for UFH may be either 0.3-0.6 IU/mL or 0.3-0.7 IU/mL based on the clinical setting for anticoagulant therapy and the associated nomogram used. For heparin dosing guidelines based on clinical scenario and Heparin Assay results, please refer to local Pharmacy and the [facility] Guidelines for Anticoagulation therapy available on the [facility] intranet at:[email or web address]/Pharmacy/Pages/[facility]_Guidelines_for_Anticoagu.aspx Performed By: #### C MP ####[facility] [place] [address] HEPARIN ASSAY,UFH 0.7 IU/mL Normal [facility] Comment on above: Result Comment: The therapeutic reference range for UFH may be either 0.3-0.6 IU/mL or 0.3-0.7 IU/mL based on the clinical setting for anticoagulant therapy and the associated nomogram used. For heparin dosing guidelines based on clinical scenario and Heparin Assay results, please refer to [facility] and the [facility] Guidelines for Anticoagulation therapy available on the [facility] intranet at:[email or web address] Performed By: #### C MP ####[facility] [place] [address] HEPARIN ASSAY,UFH 1.1 IU/mL Abnormal [facility] Comment on above: Order Comment: HAUF TO-RP BACK BY GERMAINE CUADRA, 01/23/2017 01:02 Result Comment: The therapeutic reference range for UFH may be either 0.3-0.6 IU/mL or 0.3-0.7 IU/mL based on the clinical setting for anticoagulant therapy and the associated nomogram used. For heparin dosing guidelines based on clinical scenario and Heparin Assay results, please refer to local Pharmacy and the [facility] Guidelines for Anticoagulation therapy available on the [facility] intranet at:[email or web address] TO-RP BACK BY GERMAINE CUADRA, 01/23/2017 01:02 Performed By: #### C MP ####[facility] [place] [address] MAGNESIUMon 01-23-2017 Magnesium 1.99 mg/dL Normal 1.60 - 2.40 [facility] Comment on above: Performed By: #### C MP ####[facility] [place] [address] RENAL FUNCTION PANELon 01-23 Albumin 2.0 g/dL Low 3.4 - 5.0 [facility] Comment on above: Performed By: #### C MP ####[facility] [place] [address] Anion gap 12 mmol/L Normal 10 - 20 [facility] Comment on above: Performed By: #### C MP ####[facility] [place] [address] Bicarbonate (HCO3) 20 mmol/L Low 21 - 32 [facility] Comment on above: Performed By: #### C MP ####[facility] [place] [address] Calcium 9.0 mg/dL Normal 8.6 - 10.6 [facility] Comment on above: Performed By: #### C MP ####[facility] [place] [address] Chloride 113 mmol/L High 98 - 107 [facility] Comment on above: Performed By: #### C MP ####[facility] [place] [address] Creatinine 1.29 mg/dL High 0.50 - 1.05 [facility] Comment on above: Performed By: #### C MP ####[facility] [place] [address] eGFR (non-black) 51 mL/min/{1.73_m2} Abnormal >60 [facility] Comment on above: Result Comment: CALC ULATIONS OF ESTIMATED GFR ARE PERFORMED USING THE MDRD STUDY EQUATION FOR THE IDMS-TRACEABLE CREATININE METHODS. CLIN CHEM 2007;53:766-72 Performed By: #### C MP ####[facility] [place] [address] eGFR (non-black) 42 mL/min/{1.73_m2} Abnormal >60 [facility] Comment on above: Performed By: #### C MP ####[facility] [place] [address] Glucose mass conc 75 mg/dL Normal 74 - 99 [facility] Comment on above: Performed By: #### C MP ####[facility] [place] [address] Phosphate 3.1 mg/dL Normal 2.5 - 4.9 [facility] Comment on above: Result Comment: The performance characteristics of phosphorus testing in heparinized plasma have been validated by the individual laboratory site where testing is performed. Testing on heparinized plasma is not approved by the FDA; however, such approval is not necessary. Performed By: #### C MP ####[facility] [place] [address] Potassium molar conc 4.4 mmol/L Normal 3.5 - 5.3 [facility] Comment on above: Performed By: #### C MP ####[facility] [place] [address] Sodium 141 mmol/L Normal 136 - 145 [facility] Comment on above: Performed By: #### C MP ####[facility] [place] [address] Urea nitrogen 38 mg/dL High 6 - 23 [facility] Comment on above: Performed By: #### C MP ####[facility] [place] [address] CHEST WO CONTRASTon Hematocrit (HCT) [...] findingsas stated. This study was interpreted at [place], [place].Electronically signed by: Kain DUBON MD Normal [facility] C-REACTIVE PROTEINon 017 C reactive protein (CRP) 5.24 mg/dL Abnormal [facility] Comment on above: Result Comment: REF VALUE< 1.00 Performed By: #### C RP ####[facility] [place] [address] CBC AND DIFFERENTIALon 01-22 % AUTOMATED IMMATURE GRAN 11.6 % High 0.0 - 0.9 [facility] Comment on above: Result Comment: Perc ent differential counts (%) should be interpreted in the context of the absolute cell counts (cells/L). Performed By: #### C OAGS ####[facility] [place] [address] DIFFERENTIAL SEE MANUAL DIFF Normal [facility] Comment on above: Performed By: #### C OAGS ####[facility] [place] [address] Erythrocyte distribution width Auto Ratio (RBC) 23.7 % High 11.5 - 14.5 [facility] Comment on above: Performed By: #### C OAGS ####[facility] [place] [address] Erythrocytes (RBC) 2.64 x10E12/L Low 4.00 - 5.20 [facility] Comment on above: Performed By: #### C OAGS ####[facility] [place] [address] Hematocrit (HCT) 25.9 % Low 36.0 - 46.0 [facility] Comment on above: Performed By: #### C OAGS ####[facility] [place] [address] Hemoglobin mass conc (Bld) 7.8 g/dL Low 12.0 - 16.0 [facility] Comment on above: Performed By: #### C OAGS ####[facility] [place] [address] MCHC mass conc (RBC) 30.1 g/dL Low 32.0 - 36.0 [facility] Comment on above: Performed By: #### C OAGS ####[facility] [place] [address] MCV 98 fL Normal 80 - 100 [facility] Comment on above: Performed By: #### C OAGS ####[facility] [place] [address] Nucleated erythrocytes 1.9 /100 WBC Abnormal 0.0-0.0 [facility] Comment on above: Performed By: #### C OAGS ####[facility] [place] [address] Platelets 424 10*3/uL Normal 150 - 450 [facility] Comment on above: Performed By: #### C OAGS ####[facility] [place] [address] WBC (Leukocytes) 8.7 10*3/uL Normal 4.4 - 11.3 [facility] Comment on above: Performed By: #### C OAGS ####[facility] [place] [address] % AUTOMATED IMMATURE GRAN 12.9 % High 0.0 - 0.9 [facility] Comment on above: Result Comment: Perc ent differential counts (%) should be interpreted in the context of the absolute cell counts (cells/L). Performed By: #### C BCDF ####[facility] [place] [address] DIFFERENTIAL SEE MANUAL DIFF Normal [facility] Comment on above: Performed By: #### C BCDF ####[facility] [place] [address] Erythrocyte distribution width Auto Ratio (RBC) 23.3 % High 11.5 - 14.5 [facility] Comment on above: Performed By: #### C BCDF ####[facility] [place] [address] Erythrocytes (RBC) 2.67 x10E12/L Low 4.00 - 5.20 [facility] Comment on above: Performed By: #### C BCDF ####[facility] [place] [address] Hematocrit (HCT) 26.3 % Low 36.0 - 46.0 [facility] Comment on above: Performed By: #### C BCDF ####[facility] [place] [address] Hemoglobin mass conc (Bld) 8.1 g/dL Low 12.0 - 16.0 [facility] Comment on above: Performed By: #### C BCDF ####[facility] [place] [address] MCHC mass conc (RBC) 30.8 g/dL Low 32.0 - 36.0 [facility] Comment on above: Performed By: #### C BCDF ####[facility] [place] [address] MCV 99 fL Normal 80 - 100 [facility] Comment on above: Performed By: #### C BCDF ####[facility] [place] [address] Nucleated erythrocytes 1.8 /100 WBC Abnormal 0.0-0.0 [facility] Comment on above: Performed By: #### C BCDF ####[facility] [place] [address] Platelets 394 10*3/uL Normal 150 - 450 [facility] Comment on above: Performed By: #### C BCDF ####[facility] [place] [address] WBC (Leukocytes) 7.7 10*3/uL Normal 4.4 - 11.3 [facility] Comment on above: Performed By: #### C BCDF ####[facility] [place] [address] COAGULATION SCREENon 017 aPTT 25 s Normal 25 - 36 [facility] Comment on above: Result Comment: THE APTT IS NO LONGER USED FOR MONITORING UNFRACTIONATED HEPARIN THERAPY. FOR MONITORING HEPARIN THERAPY, USE THE HEPARIN ASSAY. Performed By: #### C OAGS ####[facility] [place] [address] INR Coag RelTime (PPP) 1.3 {INR} High 0.9 - 1.1 [facility] Comment on above: Performed By: #### C OAGS ####[facility] [place] [address] Prothrombin time (PT) Coag time (PPP) 14.3 s High 9.8 - 12.7 [facility] Comment on above: Performed By: #### C OAGS ####[facility] [place] [address] aPTT 27 s Normal 25 - 36 [facility] Comment on above: Result Comment: THE APTT IS NO LONGER USED FOR MONITORING UNFRACTIONATED HEPARIN THERAPY. FOR MONITORING HEPARIN THERAPY, USE THE HEPARIN ASSAY. Performed By: #### C OAGS ####[facility] [place] [address] INR Coag RelTime (PPP) 1.3 {INR} High 0.9 - 1.1 [facility] Comment on above: Performed By: #### C OAGS ####[facility] [place] [address] Prothrombin time (PT) Coag time (PPP) 14.9 s High 9.8 - 12.7 [facility] Comment on above: Performed By: #### C OAGS ####[facility] [place] [address] COMPREHENSIVE PANELon 2016 Alanine aminotransferase (ALT) 33 U/L Normal 7 - 45 [facility] Comment on above: Result Comment: Sena ents treated with Sulfasalazine may generate falsely decreased results for ALT. Performed By: #### C MP ####[facility] [place] [address] Albumin 1.9 g/dL Low 3.4 - 5.0 [facility] Comment on above: Performed By: #### C MP ####[facility] [place] [address] Alkaline phosphatase (ALP) 108 U/L Normal 33 - 136 [facility] Comment on above: Performed By: #### C MP ####[facility] [place] [address] Anion gap 12 mmol/L Normal 10 - 20 [facility] Comment on above: Performed By: #### C MP ####[facility] [place] [address] Aspartate aminotransferase (AST) 17 U/L Normal 9 - 39 [facility] Comment on above: Performed By: #### C MP ####[facility] [place] [address] Bicarbonate (HCO3) 20 mmol/L Low 21 - 32 [facility] Comment on above: Performed By: #### C MP ####[facility] [place] [address] Bilirubin (total) 0.3 mg/dL Normal 0.0 - 1.2 [facility] Comment on above: Performed By: #### C MP ####[facility] [place] [address] Calcium 9.1 mg/dL Normal 8.6 - 10.6 [facility] Comment on above: Performed By: #### C MP ####[facility] [place] [address] Chloride 118 mmol/L High 98 - 107 [facility] Comment on above: Performed By: #### C MP ####[facility] [place] [address] Creatinine 1.22 mg/dL High 0.50 - 1.05 [facility] Comment on above: Performed By: #### C MP ####[facility] [place] [address] eGFR (non-black) 45 mL/min/{1.73_m2} Abnormal >60 [facility] Comment on above: Performed By: #### C MP ####[facility] [place] [address] eGFR (non-black) 54 mL/min/{1.73_m2} Abnormal >60 [facility] Comment on above: Result Comment: CALC ULATIONS OF ESTIMATED GFR ARE PERFORMED USING THE MDRD STUDY EQUATION FOR THE IDMS-TRACEABLE CREATININE METHODS. CLIN CHEM 2007;53:766-72 Performed By: #### C MP ####[facility] [place] [address] Glucose mass conc 75 mg/dL Normal 74 - 99 [facility] Comment on above: Performed By: #### C MP ####[facility] [place] [address] Potassium molar conc 3.8 mmol/L Normal 3.5 - 5.3 [facility] Comment on above: Performed By: #### C MP ####[facility] [place] [address] Protein 5.6 g/dL Low 6.4 - 8.2 [facility] Comment on above: Performed By: #### C MP ####[facility] [place] [address] Sodium 146 mmol/L High 136 - 145 [facility] Comment on above: Performed By: #### C MP ####[facility] [place] [address] Urea nitrogen 42 mg/dL High 6 - 23 [facility] Comment on above: Performed By: #### C MP ####[facility] [place] [address] CORTISOL, A.M.on 01-22-2017 CORTISOL, A.M. 20.0 ug/dL Normal 5.0 - 20.0 [facility] Comment on above: Performed By: #### C RP ####[facility] [place] [address] CREATINE KINASEon 01-22-2017 Creatine kinase (CK) 21 U/L Normal 0 - 215 [facility] Comment on above: Performed By: #### C K ####[facility] [place] [address] ELECTROLYTE, URINE SPOTon OSMOLALITY,URINE SPOT 480 mOsm/kg Normal 200 - 1200 [facility] Comment on above: Performed By: #### C RP ####[facility] [place] [address] CHLORIDE,URINE SPOT 124 mmol/L Normal [facility] Comment on above: Performed By: #### C RP ####[facility] [place] [address] CHLORIDE/CREAT RATIO 187 mmol/g Creat Normal [facility] Comment on above: Performed By: #### C RP ####[facility] [place] [address] CREATININE,URINE 66.3 mg/dL Normal [facility] Comment on above: Performed By: #### C RP ####[facility] [place] [address] POT/CREAT RATIO 56 mmol/g Creat Normal [facility] Comment on above: Performed By: #### C RP ####[facility] [place] [address] POTASSIUM,URINE SPOT 37 mmol/L Normal [facility] Comment on above: Performed By: #### C RP ####[facility] [place] [address] SODIUM,URINE SPOT 86 mmol/L Normal [facility] Comment on above: Performed By: #### C RP ####[facility] [place] [address] SODIUM/CREAT RATIO 130 mmol/g Creat Normal [facility] Comment on above: Performed By: #### C RP ####[facility] [place] [address] UREA NITROGEN,URINE 546 mg/dL Normal [facility] Comment on above: Performed By: #### C RP ####[facility] [place] [address] UREA NITROGEN/CREAT RATIO 8.2 g/g Creat Normal [facility] Comment on above: Performed By: #### C RP ####[facility] [place] [address] EMR ADDONon 01-22-2017 ADDON CONFIRMATION REQUEST REC'D Normal [facility] Comment on above: Performed By: #### C OAGS ####[facility] [place] [address] ESR-WESTERGRENon 01-22-2017 ESR-WESTERGREN >140 High 0 - 30 [facility] Comment on above: Performed By: #### E SRWS ####[facility] [place] [address] FERRITINon 01-22-2017 FERRITIN 457 ug/L High 8 - 150 [facility] Comment on above: Performed By: #### C RP ####[facility] [place] [address] GLUCOSE-POCTon 01-22-2017 Glucose mass conc 137 mg/dL High 74 - 99 [facility] Comment on above: Performed By: #### C RP ####[facility] [place] [address] Glucose mass conc 105 mg/dL High 74 - 99 [facility] Comment on above: Performed By: #### C RP ####[facility] [place] [address] Glucose mass conc 83 mg/dL Normal 74 - 99 [facility] Comment on above: Performed By: #### C RP ####[facility] [place] [address] Glucose mass conc 101 mg/dL High 74 - 99 [facility] Comment on above: Performed By: #### C OAGS ####[facility] [place] [address] Glucose mass conc 80 mg/dL Normal 74 - 99 [facility] Comment on above: Performed By: #### C OAGS ####[facility] [place] [address] HEMOGLOBIN A1Con 01-22-2017 Glucose mass conc 146 mg/dL Normal [facility] Comment on above: Performed By: #### C RP ####[facility] [place] [address] Hemoglobin A1c/Hemoglobin.total mass fraction (Bld) 6.7 % Normal [facility] Comment on above: Result Comment: Diag nosis of Diabetes-Adults Non-Diabetic: < or = 5.6% Increased risk for developing diabetes: 5.7-6.4% Diagnostic of diabetes: > or = 6.5%. Monitoring of Diabetes Age (y) Therapeutic Goal (%) Adults: >18 <7.0 Pediatrics: 13-18 <7.5 7-12 <8.0 0- 6 7.5-8.5 [employer]. Diabetes Care 33(S1), Feb 2009. Performed By: #### C RP ####[facility] [place] [address] HEPARIN ASSAY,UFHon 01-23-20 17 HEPARIN ASSAY,UFH 1.9 IU/mL Abnormal [facility] Comment on above: Order Comment: EMILY MARISCAL TO GERMAINE CARRASCO RN, 01/22/2017 22:01 Result Comment: The therapeutic reference range for UFH may be either 0.3-0.6 IU/mL or 0.3-0.7 IU/mL based on the clinical setting for anticoagulant therapy and the associated nomogram used. For heparin dosing guidelines based on clinical scenario and Heparin Assay results, please refer to local Pharmacy and the [facility] Guidelines for Anticoagulation therapy available on the [facility] intranet at:[email or web address] HEPARIN TO GERMAINE CARRASCO RN, 01/22/2017 22:01 Performed By: #### C RP ####[facility] [place] [address] HEPARIN ASSAY,UFH >2.0 Abnormal [facility] Comment on above: Order Comment: EMIYL Locke TO DIANN MCDONALD RN, 01/22/2017 22:10 Result Comment: The therapeutic reference range for UFH may be either 0.3-0.6 IU/mL or 0.3-0.7 IU/mL based on the clinical setting for anticoagulant therapy and the associated nomogram used. For heparin dosing guidelines based on clinical scenario and Heparin Assay results, please refer to local Pharmacy and [facility] Guidelines for Anticoagulation therapy available on the [facility] intranet at:[email or web address] TO DIANN MCDONALD RN, 01/22/2017 22:10 Performed By: #### C RP ####[facility] [place] [address] HEPARIN ASSAY,UFH >2.0 Abnormal [facility] Comment on above: Order Comment: EMILY Locke [...] please refer to local Pharmacy and the [facility] Guidelines for Anticoagulation therapy available on the [facility] intranet at:[email or web address] HEPARIN RESULT -RB TO DIANN MCDONALD RN, 01/22/2017 18:44 Performed By: #### C RP ####[facility] [place] [address] IRON + TIBCon 01-22-2017 % SATURATION 31 % Normal 25 - 45 [facility] Comment on above: Performed By: #### C OAGS ####[facility] [place] [address] Iron 46 ug/dL Normal 35 - 150 [facility] Comment on above: Performed By: #### C OAGS ####[facility] [place] [address] TIBC 149 ug/dL Low 240 - 445 [facility] Comment on above: Performed By: #### C OAGS ####[facility] [place] [address] MANUAL DIFFERENTIALon 2016 % BAND NEUTROPHIL 11.0 % High 0.0 - 5.0 [facility] Comment on above: Performed By: #### C OAGS ####[facility] [place] [address] % METAMYELOCYTE 4.0 % Abnormal 0.0 - 0.0 [facility] Comment on above: Performed By: #### C OAGS ####[facility] [place] [address] % SEG NEUTROPHIL 66.0 % Normal 40.0 - 80.0 [facility] Comment on above: Result Comment: Perc ent differential counts (%) should be interpreted in the context of the absolute cell counts (cells/L). Performed By: #### C OAGS ####[facility] [place] [address] ANC 6.70 X10E9/L Normal [facility] Comment on above: Performed By: #### C OAGS ####[facility] [place] [address] BAND NEUTROPHIL 0.96 X10E9/L High 0.00 - 0.70 [facility] Comment on above: Performed By: #### C OAGS ####[facility] [place] [address] Basophils/100 WBC Auto (Bld) 0.00 x10E9/L Normal 0.00 - 0.10 [facility] Comment on above: Performed By: #### C OAGS ####[facility] [place] [address] Basophils/100 WBC Auto (Bld) 0.0 % Normal 0.0 - 2.0 [facility] Comment on above: Performed By: #### C OAGS ####[facility] [place] [address] Eosinophils 0.26 10*3/uL Normal 0.00 - 0.70 [facility] Comment on above: Performed By: #### C OAGS ####[facility] [place] [address] Eosinophils/100 leukocytes 3.0 % Normal 0.0 - 6.0 [facility] Comment on above: Performed By: #### C OAGS ####[facility] [place] [address] Lymphocytes 0.09 10*3/uL Normal 0.00 - 0.50 [facility] Comment on above: Performed By: #### C OAGS ####[facility] [place] [address] Lymphocytes 0.70 10*3/uL Low 1.20 - 4.80 [facility] Comment on above: Performed By: #### C OAGS ####[id number] [place] [address] Lymphocytes/100 leukocytes 1.0 % Normal 0.0 - 2.0 [facility] Comment on above: Performed By: #### C OAGS ####[facility] [id number] [place] [address] Lymphocytes/100 leukocytes 8.0 % Low 13.0 - 44.0 [facility] Comment on above: Performed By: #### C OAGS ####[facility] [place] [place] [address] Metamyelocytes/100 leukocytes 0.35 x10E9/L Abnormal 0.00 - 0.00 [facility] Comment on above: Performed By: #### C OAGS ####[facility] [place] [address] Monocytes 0.61 10*3/uL Normal 0.10 - 1.00 [facility] Comment on above: Performed By: #### C OAGS ####[facility] [place] [place] [address] Monocytes/100 leukocytes 7.0 % Normal 2.0 - 10.0 [facility] Comment on above: Performed By: #### C OAGS ####[facility] [place] [place] [address] SEG NEUTROPHIL 5.74 X10E9/L Normal 1.20 - 7.00 [facility] Comment on above: Performed By: #### C OAGS ####[facility] [place] [place] [address] % METAMYELOCYTE 4.0 % Abnormal 0.0 - 0.0 [facility] Comment on above: Performed By: #### M DIFF ####[facility] [place] [place] [address] % MYELOCYTE 6.0 % Abnormal 0.0 - 0.0 [facility] Comment on above: Performed By: #### M DIFF ####[facility] [place] [address] % SEG NEUTROPHIL 79.0 % Normal 40.0 - 80.0 [facility] Comment on above: Result Comment: Perc ent differential counts (%) should be interpreted in the context of the absolute cell counts (cells/L). Performed By: #### M DIFF ####[facility] [place] [address] ANC 6.08 X10E9/L Normal [facility] Comment on above: Performed By: #### M DIFF ####[facility] [place] [place] [address] Basophils/100 WBC Auto (Bld) 0.0 % Normal 0.0 - 2.0 [facility] Comment on above: Performed By: #### M DIFF ####[facility] [place] [place] [address] Basophils/100 WBC Auto (Bld) 0.00 x10E9/L Normal 0.00 - 0.10 [facility] Comment on above: Performed By: #### M DIFF ####[facility] [place] [place] [address] Eosinophils 0.15 10*3/uL Normal 0.00 - 0.70 [facility] Comment on above: Performed By: #### M DIFF ####[facility] [place] [place] [address] Eosinophils/100 leukocytes 2.0 % Normal 0.0 - 6.0 [facility] Comment on above: Performed By: #### M DIFF ####[facility] [place] [place] [address] Lymphocytes 0.46 10*3/uL Low 1.20 - 4.80 [facility] Comment on above: Performed By: #### M DIFF ####[facility] [place] [address] Lymphocytes/100 leukocytes 6.0 % Low 13.0 - 44.0 [facility] Comment on above: Performed By: #### M DIFF ####[facility] [place] [place] [address] Metamyelocytes/100 leukocytes 0.31 x10E9/L Abnormal 0.00 - 0.00 [facility] Comment on above: Performed By: #### M DIFF ####[facility] [place] [place] [address] Monocytes 0.23 10*3/uL Normal 0.10 - 1.00 [facility] Comment on above: Performed By: #### M DIFF ####[facility] [place] [place] [address] Monocytes/100 leukocytes 3.0 % Normal 2.0 - 10.0 [facility] Comment on above: Performed By: #### M DIFF ####[facility] [place] [place] [address] MYELOCYTE 0.46 x10E9/L Abnormal 0.00 - 0.00 [facility] Comment on above: Performed By: #### M DIFF ####[facility] [place] [place] [address] SEG NEUTROPHIL 6.08 X10E9/L Normal 1.20 - 7.00 [facility] Comment on above: Performed By: #### M DIFF ####[facility] [place] [place] [address] RED CELL MORPHOLOGYon 2016 Erythrocyte morphology See Below Normal [facility] Comment on above: Performed By: #### C OAGS ####[facility] [place] [place] [address] OVALOCYTES Few Normal [facility] Comment on above: Performed By: #### C OAGS ####[facility] [place] [place] [address] POLYCHROMASIA Mild Normal [facility] Comment on above: Performed By: #### C OAGS ####[facility] [place] [place] [address] Erythrocyte morphology See Below Normal [facility] Comment on above: Performed By: #### M ORP2 ####[facility] [place] [place] [address] OVALOCYTES Few Normal [facility] Comment on above: Performed By: #### M ORP2 ####[facility] [place] [place] [address] POLYCHROMASIA Mild Normal [facility] Comment on above: Performed By: #### M ORP2 ####[facility] [place] [place] [address] TEARDROP CELLS Few Normal [facility] Comment on above: Performed By: #### M ORP2 ####[facility] [place] [place] [address] RENAL FUNCTION PANELon 01-22 Albumin 1.9 g/dL Low 3.4 - 5.0 [facility] Comment on above: Performed By: #### R ENAL ####[facility] [place] [place] [address] Anion gap 13 mmol/L Normal 10 - 20 [facility] Comment on above: Performed By: #### R ENAL ####[facility] [place] [place] [address] Bicarbonate (HCO3) 19 mmol/L Low 21 - 32 [facility] Comment on above: Performed By: #### R ENAL ####[facility] [place] [place] [address] Calcium 8.6 mg/dL Normal 8.6 - 10.6 [facility] Comment on above: Performed By: #### R ENAL ####[facility] [place] [place] [address] Chloride 115 mmol/L High 98 - 107 [facility] Comment on above: Performed By: #### R ENAL ####[facility] [place] [place] [address] Creatinine 1.16 mg/dL High 0.50 - 1.05 [facility] Comment on above: Performed By: #### R ENAL ####[facility] [place] [place] [address] eGFR (non-black) 47 mL/min/{1.73_m2} Abnormal >60 [facility] Comment on above: Performed By: #### R ENAL ####[facility] [place] [place] [address] eGFR (non-black) 57 mL/min/{1.73_m2} Abnormal >60 [facility] Comment on above: Result Comment: CALC ULATIONS OF ESTIMATED GFR ARE PERFORMED USING THE MDRD STUDY EQUATION FOR THE IDMS-TRACEABLE CREATININE METHODS. CLIN CHEM 2007;53:766-72 Performed By: #### R ENAL ####[facility] [place] [place] [address] Glucose mass conc 64 mg/dL Low 74 - 99 [facility] Comment on above: Performed By: #### R ENAL ####[facility] [place] [place] [address] Phosphate 2.2 mg/dL Low 2.5 - 4.9 [facility] Comment on above: Result Comment: The performance characteristics of phosphorus testing in heparinized plasma have been validated by the individual laboratory site where testing is performed. Testing on heparinized plasma is not approved by the FDA; however, such approval is not necessary. Performed By: #### R ENAL ####[facility] [place] [place] [address] Potassium molar conc 4.1 mmol/L Normal 3.5 - 5.3 [facility] Comment on above: Performed By: #### R ENAL ####[facility] [place] [place] [address] Sodium 143 mmol/L Normal 136 - 145 [facility] Comment on above: Performed By: #### R ENAL ####[facility] [place] [place] [address] Urea nitrogen 39 mg/dL High 6 - 23 [facility] Comment on above: Performed By: #### R ENAL ####[facility] [place] [place] [address] TH CHEST 1 VIEWon 01-22-2017 TH CHEST [...] Electronically signed by: MEEK LONG MD Normal [facility] THYROXINE,FREEon 01-22-2017 THYROXINE,FREE 1.13 ng/dL Normal 0.78 - 1.48 [facility] Comment on above: Result Comment: Thyr oxine Free testing is performed using different testing methodology at [facility] than at [facility]. Direct result comparisons should only be made within the same method.. Patients receiving more than 5 mg/day of biotin may have interference in test results. A sample should be taken no sooner than eight hours after previous dose. Contact [phone] for additional information. Performed By: #### C OAGS ####[facility] [place] [place] [address] TSHon 01-22-2017 Thyroid stimulating hormone (TSH) 5.79 m[IU]/L High 0.44 - 3.98 [facility] Comment on above: Result Comment: TSH testing is performed using different testing methodology at [facility] than at [facility]. Direct result comparisons should only be made within the same method.. Patients receiving more than 5 mg/day of biotin may have interference in test results. A sample should be taken no sooner than eight hours after previous dose. Contact [phone] for additional information. Performed By: #### C OAGS ####[facility] [place] [place] [address] GLUCOSE-POCTon 01-21-2017 Glucose mass conc 82 mg/dL Normal 74 - 99 [facility] Comment on above: Performed By: #### G MIKE ####[facility] [place] [place] [address] CASE MANAGEMon 12-30-2016 CASE MANAGEM HNO ID: [id number] thor: Mira (Rn) LEVI Rochaervice: Case ManagementAuthor Type: Registered NurseType: Care Mgt Progress NoteFiled: 12/30/2016 3:31 PMNote Text:CARE MANAGEMENT DISCHARGE NOTESERVICE DATE: 12/30/2016SERVICE TIME: 3:27 PM LOS: 14 daysAdmission Date: 12/15/2016DISCHARGE ARRANGEMENT (list agency and phone number)snf facilityProvider: [facility] Gdccs all dc documents to Yudi Boggs [phone] ASSESSMENT:Caregiver is ready, willing and able to meet the patient's needs asrecommended by the inter-professional team? YesPatient's transition needs and plan for meeting these needs: Dischargingto [facility] SNFDoes the patient have an acute stroke diagnosis, or has the patient had astroke during this admission? NoHANDOFF COMMUNICATION:Primary Care Physician: Moreno Donnelly Bbbrtjr of care sent to: Moreno Donnelly MD? PCP - General [facility] [phone] [employer] HospitalMicro[facility] [employer] [address] Ottoniel Hinds MD? Gastroenterology [phone] DIG[employer]IVE GPBRUEPUDCEMNOCNOX6[address] [facility] [address] Jaya Darby Rai, MD? Pulmonary and Critical Care Medicine [phone] [address] [facility] [address] Thuan Burks MD? Neurology [phone] [address] Maged Mcginnis MD, ? Infectious DiseasesInternal Medicine [phone] [address] [facility] [address] Johnny Sheldon DPM, DPM? Podiatry [phone] [address] [facility] [address] Johnny Culver MD, MD? Endocrinology [phone] [address] [facility],[address] [address] Ronny Valente MD? Cardiology [phone] [address] Emeterio Braxton MD? Pulmonary and Critical Care Medicine [phone] [address] [address]IkjnxngRhode Island HospitalTRANSPORTATION ARRANGEMENTS:Ambulance: Transport Agency and Phone: [facility] ambulance ( [facility]) [phone] / [phone]. Discussion of financial coverage occurredwith Patient and Spouse. CM informed patient/spouse of potential cost fortransport to [facility]. Spouse contacted [facility] whoinformed him of ambulance transport covered if medically necessary.ADDITIONAL CONTACT RESOURCES:SIGNATURE: Mira Rocha RN PATIENT NAME: Laura StarkDATE: December 30, 2016 : 3:26 PM PAGER/CONTACT #: [phone] [facility] CASE MANAGEM HNO ID: [id number] thor: Mira Del Cid) LEVI Rochaervice: Case ManagementAuthor Type: Registered NurseType: Care Mgt Progress NoteFiled: 12/30/2016 1:33 PMNote Text:CARE MANAGEMENT PROGRESS NOTESERVICE DATE: 12/30/2016SERVICE TIME: 1:32 PM LOS: 14 daysPrecert obtained from [facility], Dr Nugent notified.SIGNATURE: Mira Rocha RN PATIENT NAME: Laura StarkDATE: December 30, 2016 : 1:32 PM PAGER/CONTACT #: [phone] [facility] CASE MANAGEM HNO ID: [id number] thor: Mira [place]) LEVI Rochaervice: Case ManagementAuthor Type: Registered NurseType: Care Mgt Progress NoteFiled: 12/30/2016 11:41 AMNote Text:CARE MANAGEMENT PROGRESS NOTESERVICE DATE: 12/30/2016SERVICE TIME: 11:40 AM LOS: 14 daysCM notified by [facility] of precert being closed by MMlesley Thomas for new one. Also having difficulty receiving notes from [facility] thru [facility], fax all documents to Yudi Boggs [phone]: Mira Rocha RN PATIENT NAME: Laura SinclairTE: December 30, 2016 : 11:40 AM PAGER/CONTACT #: [phone] [facility] CASE MANAGEM HNO ID: [id number] thor: LEVI Cardoza Rnervice: Case ManagementAuthor Type: Registered NurseType: Care Mgt Progress NoteFiled: 12/30/2016 10:21 AMNote Text:CARE MANAGEMENT PROGRESS NOTESERVICE DATE: 12/30/2016SERVICE TIME: 10:18 AM LOS: 14 daysCM sent updated notes to [facility] for precert, [facility], system down.SIGNATURE: Mira Rocha RN PATIENT NAME: Laura StarkDATE: December 30, 2016 : 10:18 AM PAGER/CONTACT #: [phone] Normal [facility] CBCon 12-30-2016 Erythrocyte distribution width Auto Ratio (RBC) 17.2 % High 11.5-15.0 [facility] Comment on above: Performed By: #### C BCDIF, PT, PTT, CMP, MG1 ####[facility] [address] [place] [address] Erythrocytes (RBC) 3.50 10*6/uL Low 3.90-5.20 [facility] Comment on above: Performed By: #### C BCDIF, PT, PTT, CMP, MG1 ####[facility] [address] [place] [address] Hematocrit (HCT) 30.3 % Low 36.0-46.0 [facility] Comment on above: Performed By: #### C BCDIF, PT, PTT, CMP, MG1 ####[facility] [address] [place] [address] Hemoglobin mass conc (Bld) 9.6 g/dL Low 11.5-15.5 [facility] Comment on above: Performed By: #### C BCDIF, PT, PTT, CMP, MG1 ####[facility] [address] [place] [address] MCH 27.4 pG Normal 26.0-34.0 [facility] Comment on above: Performed By: #### C BCDIF, PT, PTT, CMP, MG1 ####[facility] [address] [place] [address] MCHC mass conc (RBC) 31.7 g/dL Normal 30.5-36.0 [facility] Comment on above: Performed By: #### C BCDIF, PT, PTT, CMP, MG1 ####[facility] [address] [place] [phone] MCV 86.6 fL Normal 80.0-100.0 [facility] Comment on above: Performed By: #### C BCDIF, PT, PTT, CMP, MG1 ####[facility] [phone] Platelet mean volume (PMV) 10.1 fL Normal 9.0-12.7 [facility] Comment on above: Performed By: #### C BCDIF, PT, PTT, CMP, MG1 ####[facility] [address]721-5160 Platelets 178 10*3/uL Normal 150-400 [facility] Comment on above: Performed By: #### C BCDIF, PT, PTT, CMP, MG1 ####[facility] [address]721-5160 WBC (Leukocytes) 11.88 10*3/uL High 3.70-11.00 [facility] Comment on above: Performed By: #### C BCDIF, PT, PTT, CMP, MG1 ####[facility] [address]meghwkmtt[address]79 [phone] CNDSon 12-30-2016 CNDS HNO ID: [id number] thor: Kiara Watsone: General Internal MedicineAuthor Type: PhysicianType: Discharge SummariesFiled: 12/30/2016 8:16 PMNote Text:DISCHARGE SUMMARYPATIENT NAME: Laura StarkMRN: [id number] Information Admission Information ADMIT DATE: 12/15/2016DISCHARGE DATE: December 30, 2016MY DOCTORS AND MEDICAL TEAM:[facility] Doctor: Kiara Guadalupe Care Provider: Korin Oseguera Medical Team Members: Treatment Team:Attending Provider: Kiara NugentConsuing: Maged Mcginnis MDConsulting: Emeterio BraxtonConsulting: Ronny De La TorreuConsulting: Johnny Culver MDConsulting: Ottoniel [...] 2 weeksPatient/Parents to call for appointment?: Jen [phone] [address]JUO Requested ReferralAdditional Provider to Provider Information:Active Problems: [...] problems. *FOLLOW-UP APPOINTMENTS ALREADY SCHEDULED WITH A [facility] PROVIDERNo future appointments.DISCHARGE MEDICATION: Current Discharge [...] Glucose (mg/dL) is:Less than 110 Give 0 kvore000-720 Give 0 -468 Give 2 -810 Give 4 -667 Give 6 jscos324-430 Give 8 jxexo952-637 Give 10 unitsGreater than 400 Give 10 [...] QD FOR 3DAYS, THEN 30MG PO QD [id number], THEN 20MG PO QD FOR 3DAYS AND THEN 10MG PO QD FOR 3DAYS, THEN 5MGDAILY.Refills: 0CONTINUE these medications which have NOT CHANGEDguaiFENesin (MUCINEX) 1,200 mg Jm64Dqop by mouth twice daily.fluticasone-salmeter ol (ADVAIR) 1 [...] daily at bedtime.fluticasone (FLONASE) 1 SprayUse 1 [place] in each nostril twice daily.acetaminophen 1,300 mgTake [...] (233 lb 8 oz) SpO2 95% BMI42.71 kg/e5CXTHMXU: Alert, no distress, cooperative, Morbidly ObeseLUNGS: Positive [...] PAGER/CONTACT #:DATE: December 30, 2016TIME: 2:58 PM [facility] CONSULT PROGon 12-30-2016 CONSULT PROG HNO ID: [id number] thor: PARVIN Roldanervice: Infectious DiseaseAuthor Type: PhysicianType: [...] rashesNo joint inflammationNeck suppleLines okNo CVATLabs:Recent Labs 12/29/1704425WBC 11.88* 13.99* 20.27*HB 9.6* 10.5* 11.8HCT 30.3* 32.8* 36.2PLT 178 204 216NA 132 132 129*K 3.0* 3.6 3.3*CHLOR 90* 92* 87*CO2 30 27 25BUN 42* 48* 47*CREAT 0.91 1.05 1.15Microbiology data: reviewedImaging data: Du Mcginnis [id number]/9: 18 AM [facility] CONSULT PROG HNO ID: [id number] thor: Fern Alvarengae: Pulmonary DiseaseAuthor Type: PhysicianType: Consult Progress NoteFiled: 12/30/2016 4:06 PMNote Text: RESPIRATORY INSTITUTEPULMONARY MEDICINEIN-PATIENT CONSULT PROGRESS NOTESERVICE DATE: 12/30/2016ASSESSMENT:?Asth ma with acute exacerbation, better todayBilateral atelectasisRecent sputum (+) E coli and MRSA ([facility] - 12/06/16)New cough with sputum productionPseudomonas aeruginosa in sputumAtrial fibrillation with RVR; uncontrolled, s/p cardioversionRemote history of DVT/PEMorbid obesityRectal bleeding?Suspected OSALeukocytosis, improvingWeakness?RECOMMEN DATIONS:Lasix 40 mg po daily for 5 daysTaper prednisone very slowly by10 mg every 5 days then keep at 5 mg dailyuntil she see her client service coordinator at [facility] nebulized?albuterol scheduled and PRN.Antibiotics stopped as pseudomonas [...] results, microbiology and pathology data.Virgen Kowalski, Respiratory InstituteSelect Medical Specialty Hospital - YoungstownPager #[phone] COMPLAINT: Shortness of breathINTERVAL HPI:Laura Stark is [...] BP Temp Temp src Pulse Resp SpO2 Swerxl30/16/17 1556 133/63 36.9 ?C (98.4 ?F) Oral [...] followed up.CBC, Coags, BMP, Mg, PhosRecent Labs 12/29/1704425WBC 11.88* 13.99* 20.27*HB 9.6* 10.5* 11.8HCT 30.3* 32.8* 36.2PLT 178 204 216NA 132 132 129*K 3.0* 3.6 3.3*CHLOR 90* 92* 87*CO2 30 27 25BUN 42* 48* 47*CREAT 0.91 1.05 1.15GLUC 96 133* 223*CA 8.4* 8.7 8.9Liver Function, Amylase, AND LipaseRecent Labs 12/29/1704843580PWSHA 5.1* 5.3* 5.9*ALB 2.9* 3.2* 3.4*ALT 54* 60* 69*AST 14 16 22ALKPHOS 68 70 85TBILI 0.5 0.5 0.7Cardiac EnzymesRecent Labs 016CK 39ABGsSIGNATURE: Fern Turcios MD PATIENT NAME: Laura StarkDATE: December 30, 2016 : 3:58 PM PAGER/CONTACT #: [phone] [facility] CONSULT PROG HNO ID: [id number] thor: Mia Thomaservice: EndocrinologyAuthor Type: PhysicianType: Consult Progress NoteFiled: 12/30/2016 2:26 PMNote Text:DIABETES PROGRESS NOTEPATIENT NAME: Laura StarkMRN: [id number] DATE: 12/30/2016ASSESSMENT AND PLAN Ms. Stark is [...] it was [facility].we will try to obtain the records from [facility] as outpatient and if needed consider [...] N) 10 Units SUBCUTANEOUS AT BEDTIME Mia Hasanclotrimazole 1 % (LOTRIMIN, CLOTRIM) TOPICAL BID Maged [...] cell (CULTURELLE) capsule 1 capsuleORAL DAILY Vivian (Mapping Pilot) Rishi Newell 1 capsule at 12/30/16 0941flecainide 100 mg tab(s) (TAMBOCOR) 100 mg ORAL q 12 H Nixon Enciso Kiezrxmh694 mg at 12/30/16 0943diltiazem CD 360 mg cap(s) (CARDIZEM CD, CARTIA XT) 360 mg ORAL DAILYMattjuany A Micheal 360 mg at 12/30/16 0943apixaban 5 mg tab(s) (ELIQUIS) 5 mg ORAL BID Yatish Jovanna 5 mg at 742215bothgun, enteric coated 81 mg tab(s) (ASPIRIN, ENTERIC [...] H PRN YatishGoyal 4 mg at 12/24/16 04609.9% NaCl 10 mL 10 mL INTRAVENOUS q [...] AT BEDTIME Yatish Jovanna 10mg at 12/29/16 204magnesium oxide 400 mg tab(s) (MAG-OX) 400 mg [...] lb 8 oz) SpO2 96% BMI 42.71 kg/s3Djoetfq: Well appearing, alert, in no acute distress, well-hydrated, wellnourished.Skin: skin color, texture, turgor normal, no rashes or lesions.Heart: RRR without murmur, gallop, or rubs. No ectopyPulmonary: Lungs clear to auscultation. No wheezing, rhonchi, ralesAbdomen: soft, non-tender, positive bowel soundsExtremities: no edema, no calluses or ulcers present.Peripheral Pulses: posterior tibial and doralis pedis pulses 2+ andsymmetricalDATA:Diagnos tic tests reviewed for today:Recent Labs 12/31/1707PCGLUCOSE 199* 126* 274* 112* 210* 162* 190* 181* 277* 343* 201* 187* 137*Glucose, Point of CareDate Value Ref Range Wzewhg1012/30/2016 199 (A) 65 - 100 mg/dL Final SIGNATURE: Mia Correa MDDATE: December 30, 2016 Normal [facility] Comp Metabolic Panelon 12-30 Alanine aminotransferase (ALT) 54 U/L High 0-45 [facility] Comment on above: Performed By: #### C BCDIF, PT, PTT, CMP, MG1 ####[facility] [address] [place] [phone] Albumin 2.9 g/dL Low 3.5-5.0 [facility] Comment on above: Performed By: #### C BCDIF, PT, PTT, CMP, MG1 ####[facility] [address] [place] [phone] Alkaline phosphatase (ALP) 68 U/L Normal 40-150 [facility] Comment on above: Performed By: #### C BCDIF, PT, PTT, CMP, MG1 ####[facility] [address] [place] [address] Anion gap 12 mmol/L Normal 0-15 [facility] Comment on above: Performed By: #### C BCDIF, PT, PTT, CMP, MG1 ####[facility] [address] [place] [address] Aspartate aminotransferase (AST) 14 U/L Normal 7-40 [facility] Comment on above: Performed By: #### C BCDIF, PT, PTT, CMP, MG1 ####[facility] [address] [place] [address] Bilirubin (total) 0.5 mg/dL Normal 0.0-1.5 [facility] Comment on above: Performed By: #### C BCDIF, PT, PTT, CMP, MG1 ####[facility] [address] [place] [address] Calcium 8.4 mg/dL Low 8.5-10.5 [facility] Comment on above: Performed By: #### C BCDIF, PT, PTT, CMP, MG1 ####[facility] [address] [place] [address] Chloride 90 mmol/L Low 98-110 [facility] Comment on above: Performed By: #### C BCDIF, PT, PTT, CMP, MG1 ####[facility] [address] [place] [address] CO2 30 mmol/L Normal 23-32 [facility] Comment on above: Performed By: #### C BCDIF, PT, PTT, CMP, MG1 ####[facility] [address] [place] [address] Creatinine 0.91 mg/dL Normal 0.70-1.40 [facility] Comment on above: Performed By: #### C BCDIF, PT, PTT, CMP, MG1 ####[facility] [address] [place] [address] eGFR (non-black) mL/min/{1.73_m2} Normal [facility] Comment on above: Result Comment: eGFR [...] #### C BCDIF, PT, PTT, CMP, MG1 ####[facility] [address] [place] [address] Glucose mass conc 96 mg/dL Normal 65-100 [facility] Comment on above: Performed By: #### C BCDIF, PT, PTT, CMP, MG1 ####[facility] [address] [place] [address] Potassium molar conc 3.0 mmol/L Low 3.5-5.0 [facility] Comment on above: Performed By: #### C BCDIF, PT, PTT, CMP, MG1 ####[facility] [address] [place] [address] Protein 5.1 g/dL Low 6.0-8.4 [facility] Comment on above: Performed By: #### C BCDIF, PT, PTT, CMP, MG1 ####[facility] [address] [place] [address] Sodium 132 mmol/L Normal 132-148 [facility] Comment on above: Performed By: #### C BCDIF, PT, PTT, CMP, MG1 ####[facility] [address] [place] [address] Urea nitrogen 42 mg/dL High 8-25 [facility] Comment on above: Performed By: #### C BCDIF, PT, PTT, CMP, MG1 ####[facility] [address] [place] [address] NUTRITIONon 12-30-2016 NUTRITION HNO ID: [id number] thor: Terrie Cesar) HumeService: Nutrition TherapyAuthor Type: Registered DietitianType: NutritionFiled: 12/30/2016 6:40 AMNote Text:NUTRITION UPDATE NOTE -PATIENT NAME: Laura StarkMRN: [id number] OF : 1955SERVICE DATE: December 30, 2016Per [...] minNumber of Increments: 1Mjosi Trejo, RD, LD Normal [facility] Respiratory Cult/Stainon Respiratory Cult/Stain Smear Result - Ra re Gram positive cocci --> ABNORMAL ALERT Many Polymorphonuclear leukocytesCulture Result - Rare Escherichia coli --> ABNORMAL ALERT Insignificant colony count. No further workup. --> ABNORMAL ALERT Few Normal respiratory vern present Few --> ABNORMAL ALERT Aspergillus fumigatus --> ABNORMAL ALERT Critically abnormal [facility] Comment on above: Performed By: #### C BCDIF, PT, PTT, CMP, MG1 ####[facility] [address] [place] [phone] THERAPY NTon 12-30-2016 THERAPY NT HNO ID: [id number] thor: Mira Mensah/Aris) Raquelervice: Occupational TherapyAuthor Type: Occupational TherapistType: Therapy (PT/OT/Speech/Resp)Filed: 12/30/2016 3:06 PMNote Text:OCCUPATIONAL THERAPY MISSED VISITSERVICE DATE: 12/30/2016SERVICE TIME: 1505 to 1505ROOM: [id number] Treatment. Patient not seen due to Other: See Comment. Patientwith active discharge orders. [facility]Will [facility]-attempt as schedule allows if discharge status changes.SIGNATURE: Mira Willis OT/Aris PATIENT NAME: Laura StarkDATE: December 30, 2016 : 3:05 PM PAGER/CONTACT #:[phone] [facility] IVAN by IFAon 12-29-2016 IVAN Pattern Negative [facility] Comment on above: Performed By: #### C BCDIF, PT, PTT, CMP, MG1 ####[facility] [address] [place] [address] IVAN Titer Negative Normal Negative [facility] Comment on above: Result Comment: Norm al range : negative at <1:80 serum dilution.Approximately 6% of patients with connective tissue diseases with low positive EIA values are negative by IFA. Recommend follow-up with specific antinuclear antibodies if clinically indicated. Performed By: #### C BCDIF, PT, PTT, CMP, MG1 ####[facility] [address] [place] [address] Result Comment: Norm al range : negative at <1:80 serum dilution. Aldolaseon 12-29-2016 Aldolase 3.3 U/L Normal 1.2-7.6 [facility] Comment on above: Performed By: #### C BCDIF, PT, PTT, CMP, MG1 ####[facility] [address] [place] [address] CASE MANAGEMon 12-29-2016 CASE MANAGEM HNO ID: [id number] thor: Diana Reyes (Shawna) Roshan: (none)Author Type: Social WorkerType: Care Mgt Progress NoteFiled: 12/29/2016 12:36 PMNote Text:CARE MANAGEMENT PROGRESS NOTESERVICE DATE: 12/29/2016SERVICE TIME: 12:27 PM LOS: 13 daysUpdated notes sent again both [facility] Allscripts [facility] 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 Awaiting precert. CM to follow and support. [facility] with [facility] and indicated pt is medically ready to dc andis only awaiting precert.CLAIM INSPECTOR will continue to follow and support.SIGNATURE: JOSE Blount PATIENT NAME: Laura StarkDATE: December 29, 2016 : 12:27 PM PAGER/CONTACT #: [phone] Normal [facility] CBCon 12-29-2016 Erythrocyte distribution width Auto Ratio (RBC) 17.3 % High 11.5-15.0 [facility] Comment on above: Performed By: #### C BCDIF, PT, PTT, CMP, MG1 ####[facility] [address] [place] [address] Erythrocytes (RBC) 3.82 10*6/uL Low 3.90-5.20 [facility] Comment on above: Performed By: #### C BCDIF, PT, PTT, CMP, MG1 ####[facility] [address] [place] [address] Hematocrit (HCT) 32.8 % Low 36.0-46.0 [facility] Comment on above: Performed By: #### C BCDIF, PT, PTT, CMP, MG1 ####[facility] [address] [place] [address] Hemoglobin mass conc (Bld) 10.5 g/dL Low 11.5-15.5 [facility] Comment on above: Performed By: #### C BCDIF, PT, PTT, CMP, MG1 ####[place] [address] MCH 27.5 pG Normal 26.0-34.0 [facility] Comment on above: Performed By: #### C BCDIF, PT, PTT, CMP, MG1 ####[facility] [address] [place] [address] MCHC mass conc (RBC) 32.0 g/dL Normal 30.5-36.0 [facility] Comment on above: Performed By: #### C BCDIF, PT, PTT, CMP, MG1 ####[place] [address] MCV 85.9 fL Normal 80.0-100.0 [facility] Comment on above: Performed By: #### C BCDIF, PT, PTT, CMP, MG1 ####[facility] [address] [place] [address] Platelet mean volume (PMV) 10.2 fL Normal 9.0-12.7 [facility] Comment on above: Performed By: #### C BCDIF, PT, PTT, CMP, MG1 ####[place] [address] Platelets 204 10*3/uL Normal 150-400 [facility] Comment on above: Performed By: #### C BCDIF, PT, PTT, CMP, MG1 ####[facility] [phone] WBC (Leukocytes) 13.99 10*3/uL High 3.70-11.00 [facility] Comment on above: Performed By: #### C BCDIF, PT, PTT, CMP, MG1 ####[facility] [address] [place] [phone] CKon 12-29-2016 Creatine kinase (CK) 39 U/L Normal 30-220 [facility] Comment on above: Performed By: #### C BCDIF, PT, PTT, CMP, MG1 ####[facility] [address] [place] [phone] CONSULTon 12-29-2016 CONSULT HNO ID: [id number] thor: Edgard Harkins Jr.Service: NeurologyAuthor Type: PhysicianType: ConsultsFiled: 12/29/2016 3:31 PMNote Text:CONSULT: NEUROLOGY SERVICESERVICE DATE: 12/29/2016SERVICE TIME: 2:58 PMREASON FOR CONSULT: WeaknessREQUESTING PHYSICIAN: Dr. Kiara NugentCHRISTUS [facility]IAN: Moreno Donnelly [facility] COR[facility]LLCHARLICentury City HospitalTaylor Lincoln is a pleasant 61 year old right handed female with multiplemedical conditions, and currently admitted for acute asthma exacerbationwith ?HCAP, hyperglycemia secondary to steroids, thyroid disease, afibwith RVR. She initially presented to [facility] on 12/16/16 and sincethat time has primarily [...] , low cervical- COLONOSCOP W/ OR W/O [facility] SPEC 01-09-13- DEBRIDE SKIN AND SUBQ TISSU [...] (ASPIRIN, ENTERIC COATED) 325 mg EC tablet Sggt110 mg by mouth once daily. Disp: Rfl: [...] (FLONASE) 50 mcg/actuation nasal spray Use 1 [place] in eachnostril twice daily. Disp: Rfl: 12/15/2016 [...] BP Temp Temp src Pulse Resp SpO2 Bcppsq04/15/17 1125 143/58 37.2 ?C (99 ?F) Oral [...] recent labs and imaging results.WBC (k/uL)Date Value12/29/2016 13.9912/28/2016 20.27102/27/2016 14.19 RBC (m/uL)Date Value12/29/2016 3.8211 4.2211 4.41 Platelet Count (k/uL)Date Value12/29/2016 4422312/27/2016 206 BUN (mg/dL)Date Value12/29/2016 4812/28/2016 4712/27/2016 45 [...] 81TBILI 0.5 0.7 0.8TSHDate Value Ref Range Kdyhab6612/18/2016 0.242 (L) 0.400 - 5.500 uU/mL Final [...] December 29, 2016 : 2:58 PM PAGER: [phone] [facility] CONSULT PROGon 12-29-2016 CONSULT PROG HNO ID: [id number] thor: PARVIN Roldanervice: Infectious DiseaseAuthor Type: PhysicianType: [...] rashesNo joint inflammationNeck suppleLines okNo CVATLabs:Recent Labs 12/28/1713WBC 13.99* 20.27* 14.19*HB 10.5* 11.8 12.1HCT 32.8* 36.2 37.7PLT 204 216 206NA 132 129* 131*K 3.6 3.3* 3.4*CHLOR 92* 87* 92*CO2 27 25 25BUN 48* 47* 45*CREAT 1.05 1.15 1.24Microbiology data: reviewedImaging data: Du Mcginnis [id number]/29/20167: 45 PM Normal [facility] CONSULT PROG HNO ID: [id number] thor: Fern Alvarengae: Pulmonary DiseaseAuthor Type: PhysicianType: Consult Progress NoteFiled: 12/29/2016 11:58 AMNote Text: RESPIRATORY INSTITUTEPULMONARY MEDICINEIN-PATIENT CONSULT PROGRESS NOTESERVICE DATE: 12/29/2016ASSESSMENT:Asthm a with acute exacerbation, worse symptoms todayBilateral atelectasisRecent sputum (+) E coli and MRSA ([facility] - 12/06/16)New cough with sputum productionPseudomonas [...] results, microbiology and pathology data.Virgen Kowalski, Respiratory InstituteSelect Medical Specialty Hospital - YoungstownPager #[phone] COMPLAINT: Shortness of breathINTERVAL HPI:Laura Stark is [...] BP Temp Temp src Pulse Resp SpO2 Fizyhv18/15/17 1125 143/58 37.2 ?C (99 ?F) Oral [...] 29, 2016 : 11:49 AM PAGER/CONTACT #: [phone] [facility] CONSULT PROG HNO ID: [id number] thor: Toma Garciaervice: GastroenterologyAuthor Type: PhysicianType: Consult Progress NoteFiled: 12/29/2016 12:38 PMNote Text:GASTROENTEROLOGY CONSULT PROGRESS NOTEPatient Name: Laura StarkMRN: [id number] DATE: December 29, 2016SERVICE TIME: 9:32 AMASSESSMENT1. Fecal leakage with constipation2. Rectal bleeding - suspect hemorrhoidal in the context of constipation-resolved3. GERD4. Mildly elevated ALT5. Asthma exacerbation / PNA (MRSA and E.coli)6. New pAFIB (Eliquis/Aspirin) s/p cardioversion . Hyperthyroidism??PLAN- Continue Hemorrhoidal HC 25 mg NC twice daily x 7 days (12/23/16)- Continue [...] BP Temp Temp src Pulse Resp SpO2 Rqdlsh58/15/17 0803 126/50 37.3 ?C (99.1 ?F) Oral [...] x 3. Cooperative. NADEYES: No scleral icterusSKIN: [place] in color. No jaundiceLUNGS: Diminished bilateral bases [...] DIRECTED PRNLABS:CBC, Coags, BMP, Mg, PhosRecent Labs 12/28/1713WBC 13.99* [...] RECENT COLONOSCOPY: 01/09/2013. (Peter Lerma MD - [place]).Screening1. The perianal and digital rectal examinations were normal.2. The colon (entire examined portion) was moderately tortuous.3. The exam was otherwise without abnormality.4. Good bowel prep?SIGNATURE: Nisha Scott CNPDATE: December 29, 2016TIME: 9:32 AM [facility] CONSULT PROG HNO ID: [id number] thor: Mia Thomaservice: EndocrinologyAuthor Type: PhysicianType: Consult Progress NoteFiled: 12/29/2016 12:51 PMNote Text:DIABETES PROGRESS NOTEPATIENT NAME: Laura StarkMRN: [id number] DATE: 12/29/2016ASSESSMENT AND PLAN Ms. Stark is [...] it was benign [facility] at [facility].we will try to obtain the records from [facility] as outpatient and if needed consider [...] cell (CULTURELLE) capsule 1 capsuleORAL DAILY Vivian (Mapping Pilot) Blackwell Reece 1 capsule at 12/29/16 0909flecainide 100 mg tab(s) (TAMBOCOR) 100 mg ORAL q 12 H Nixon Fernie Ftdrzdar624 mg at 12/29/16 0909diltiazem CD 360 mg [...] ORAL BID Yatish Jovanna 5 mg at 615096klkiepp, enteric coated 81 mg tab(s) (ASPIRIN, ENTERIC COATED) 81 mg ORALDAILY Yatish Jovanna 81 mg at 12/29/16 0910hydrocortisone 25 mg suppository (HEMORRHOIDAL HC) 25 mg RECTAL q 12 HAlicia (Mapping Pilot) Blackwell Reece 25 mg at 12/28/16 2055albuterol 2.5 mg /3 mL (0.083 %) 2.5 mg (PROVENTIL) 2.5 mg INHALATION q 4H while awake Jaya Darby Austin 2.5 mg at 12/29/16 0604albuterol 2.5 mg [...] INHALATION BID HardeepSingh Austin 0.5 mg at 12/29/16 0608metHIMazole 5 mg tab(s) (TAPAZOLE) 5 mg ORAL DAILY Mia Hasan 5 mg at102/29/16 0911ondansetron (PF) 4 mg injection (ZOFRAN) 4 mg INTRAVENOUS q 6 H PRN YatishGoyal 4 mg at 12/24/16 36870.9% NaCl 10 mL 10 mL INTRAVENOUS q [...] 1-2 tablet ORAL q 6H PRN Yatish Jovanan 2 tablet at 12/28/16 2353montelukast 10 mg tab(s) (SINGULAIR) 10 mg ORAL AT BEDTIME Yatish Jovanna 10mg at 12/28/16 205magnesium oxide 400 mg tab(s) (MAG-OX) 400 mg ORAL DAILY Yatish Jovanna 400mg at 12/29/16 0909spironolactone 25 mg tab(s) (ALDACTONE) 25 mg ORAL [...] lb 8 oz) SpO2 96% BMI 42.52 kg/f2Ydzxdiv: Well appearing, alert, in no acute distress, well-hydrated, wellnourished.Skin: skin color, texture, turgor normal, no rashes or lesions.Heart: RRR without murmur, gallop, or rubs. No ectopyPulmonary: Lungs clear to auscultation. No wheezing, rhonchi, ralesAbdomen: obese, non-tender, positive bowel soundsExtremities: no edema, no calluses or ulcers present.Peripheral Pulses: posterior tibial and doralis pedis pulses 2+ andsymmetricalDATA:Diagnos tic tests reviewed for today:Recent Labs 12/29/17192512/28/1710838 045 72139 606 030 701 432 217657ZRAZJABWP 162* 190* 181* 277* 343* 201* 187* 137* 167* 149* 204* 155* 102*245*Glucose, Point of CareDate Value Ref Range Fjqhrm1212/29/2016 162 (A) 65 - 100 mg/dL Final SIGNATURE: Mia Correa MDDATE: December 29, 2016 Normal [facility] Comp Metabolic Panelon 12-29 Alanine aminotransferase (ALT) 60 U/L High 0-45 [facility] Comment on above: Performed By: #### C BCDIF, PT, PTT, CMP, MG1 ####[facility] Ldvrybyhrl8572 [phone] Albumin 3.2 g/dL Low 3.5-5.0 [facility] Comment on above: Performed By: #### C BCDIF, PT, PTT, CMP, MG1 ####[facility] T[address]he4970 [phone] Alkaline phosphatase (ALP) 70 U/L Normal 40-150 [facility] Comment on above: Performed By: #### C BCDIF, PT, PTT, CMP, MG1 ####[facility] [address] [place] [address] Anion gap 13 mmol/L Normal 0-15 [facility] Comment on above: Performed By: #### C BCDIF, PT, PTT, CMP, MG1 ####[facility] [address] [place] [address] Aspartate aminotransferase (AST) 16 U/L Normal 7-40 [facility] Comment on above: Performed By: #### C BCDIF, PT, PTT, CMP, MG1 ####[facility] [address] [place] [address] Bilirubin (total) 0.5 mg/dL Normal 0.0-1.5 [facility] Comment on above: Performed By: #### C BCDIF, PT, PTT, CMP, MG1 ####[facility] [address] [place] [address] Calcium 8.7 mg/dL Normal 8.5-10.5 [facility] Comment on above: Performed By: #### C BCDIF, PT, PTT, CMP, MG1 ####[facility] [address] [place] [address] Chloride 92 mmol/L Low 98-110 [facility] Comment on above: Performed By: #### C BCDIF, PT, PTT, CMP, MG1 ####[facility] [address] [place] [address] CO2 27 mmol/L Normal 23-32 [facility] Comment on above: Performed By: #### C BCDIF, PT, PTT, CMP, MG1 ####[facility] [address] [place] [address] Creatinine 1.05 mg/dL Normal 0.70-1.40 [facility] Comment on above: Performed By: #### C BCDIF, PT, PTT, CMP, MG1 ####[facility] [address] [place] [address] eGFR (non-black) 53 . Normal [facility] Comment on above: Result Comment: eGFR (Estimated [...] #### C BCDIF, PT, PTT, CMP, MG1 ####[facility] [address] [place] [address] eGFR (non-black) mL/min/{1.73_m2} Normal [facility] Comment on above: Performed By: #### C BCDIF, PT, PTT, CMP, MG1 ####[place] [address] Glucose mass conc 133 mg/dL High 65-100 [facility] Comment on above: Performed By: #### C BCDIF, PT, PTT, CMP, MG1 ####[facility] [address] [place] [address] Potassium molar conc 3.6 mmol/L Normal 3.5-5.0 [facility] Comment on above: Performed By: #### C BCDIF, PT, PTT, CMP, MG1 ####[place] [address] Protein 5.3 g/dL Low 6.0-8.4 [facility] Comment on above: Performed By: #### C BCDIF, PT, PTT, CMP, MG1 ####[facility] [address] [place] [address] Sodium 132 mmol/L Normal 132-148 [facility] Comment on above: Performed By: #### C BCDIF, PT, PTT, CMP, MG1 ####[place] [address] Urea nitrogen 48 mg/dL High 8-25 [facility] Comment on above: Performed By: #### C BCDIF, PT, PTT, CMP, MG1 ####[facility] [address] [place] [address] MRI LUMBAR SPINE WO IVCONon 12-29-2016 MRI LUMBAR SPINE WO IVCON * * *Final Report* * *DATE OF EXAM: Dec 29 2016 8:02PM [facility] 0303 - MRI LUMBAR SPINE WO IVCON [...] L4-5 and mild right L1-2 bony foraminal stenosis.Ncqa Specialist: PSCB Transcribe Date/Time: Dec 29 2016 8:54PDictated by : HARDIK FIGUEROA MDThis examination was interpreted and the report reviewed and electronically signed by: HARDIK FIGUEROA MD on Dec 29 2016 9:00PM [id number] Normal [facility] NT Pro BNPon 12-29-2016 PRO B Natr Peptide 378 pg/mL High <125 [facility] Comment on above: Performed By: #### C BCDIF, PT, PTT, CMP, MG1 ####[facility] [address] [place] [address] Occult Blood Screenon 2016 Occult Blood Screen Negative Normal [facility] Comment on above: Performed By: #### C BCDIF, PT, PTT, CMP, MG1 ####[facility] [address] [place] [address] Occult Blood Source: Stool Normal [facility] Comment on above: Performed By: #### C BCDIF, PT, PTT, CMP, MG1 ####[facility] [address] [place] [phone] PROGRESSon 12-29-2016 PROGRESS HNO ID: [id number] thor: Kiara Fleming: General Internal MedicineAuthor Type: PhysicianType: Progress NotesFiled: 12/29/2016 9:52 AMNote Text:INTERNAL MEDICINE PROGRESS NOTEADMITTING PHYSICIAN: Kiara Galloway COMPLAINT: Leg weakness and ankle/knee pain.Current Facility-Administered [...] rate 18, height 157.5 cm (5' 2), lyhnvn344.5 kg (232 lb 8 oz), SpO2 96 [...] PATIENT NAME: Laura Stark PAGER/CONTACT #: Normal [facility] Rheumatoid Factoron 12-30-19 17 Rheumatoid Factor <10 Normal <16 [facility] Comment on above: Performed By: #### C BCDIF, PT, PTT, CMP, MG1 ####[facility] [address] [place] [address] Sed Rate Westergrenon 2016 Sed Rate Westergren 46 mm/hr High 0-20 [facility] Comment on above: Performed By: #### C BCDIF, PT, PTT, CMP, MG1 ####[facility] [address] [place] [address] Uric Acidon 12-29-2016 Urate 3.5 mg/dL Normal 2.0-7.0 [facility] Comment on above: Performed By: #### C BCDIF, PT, PTT, CMP, MG1 ####[facility] [address] [place] [address] XR CHEST 1V FRONTALon 2016 XR CHEST [...] N:Suspect bilateral infiltrates, which can be followed up.Ncqa Specialist: PSCB Transcribe Date/Time: Dec 29 2016 11:17ADictated by : JUAN RAMÍREZ MDThis examination was interpreted and the report reviewed and electronically signed by: JUAN RAMÍREZ MD on Dec 29 2016 11:20AM [id number] Normal [facility] ALLIED HEALTHon 12-28-2016 ALLIED HEALTH HNO ID: [id number] thor: Columba DwyerService: (none)Author Type: (none)Type: Allied HealthFiled: 12/28/2016 9:04 AMNote Text:HEALING SERVICESTHERAPY NOTESERVICE DATE: 12/28/2016INTERVENTIONAL FOCUS: RelaxationVisit With: Patient Urgency of Visit: Routine Type of Visit:Follow-up VisitINTERVENTIONPt introduced to services 12/23 with information left at bedside. Ptcontinues to have no HS needs but knows how to reach me if needed.[place] PlanNext Session: If consulted by Alvaroeferrdianna to Healing Services Team: YesSIGNATURE: Columba Martinez PATIENT NAME: Laura StarkDATE: December 28, 2016 : 9:01 AM PAGER/CONTACT #: [phone] Normal [facility] CBCon 12-28-2016 Erythrocyte distribution width Auto Ratio (RBC) 17.1 % High 11.5-15.0 [facility] Comment on above: Performed By: #### C BCDIF, PT, PTT, CMP, MG1 ####[facility] [address] [place] [address] Erythrocytes (RBC) 4.22 10*6/uL Normal 3.90-5.20 [facility] Comment on above: Performed By: #### C BCDIF, PT, PTT, CMP, MG1 ####[place] [address] Hematocrit (HCT) 36.2 % Normal 36.0-46.0 [facility] Comment on above: Performed By: #### C BCDIF, PT, PTT, CMP, MG1 ####[facility] [address] [place] [address] Hemoglobin mass conc (Bld) 11.8 g/dL Normal 11.5-15.5 [facility] Comment on above: Performed By: #### C BCDIF, PT, PTT, CMP, MG1 ####[place] [address] MCH 28.0 pG Normal 26.0-34.0 [facility] Comment on above: Performed By: #### C BCDIF, PT, PTT, CMP, MG1 ####[facility] [address] [place] [phone] MCHC mass conc (RBC) 32.6 g/dL Normal 30.5-36.0 [facility] Comment on above: Performed By: #### C BCDIF, PT, PTT, CMP, MG1 ####[facility] [address] [place] [address] MCV 85.8 fL Normal 80.0-100.0 [facility] Comment on above: Performed By: #### C BCDIF, PT, PTT, CMP, MG1 ####[facility] [address]daqu[address] [place] [address] Platelet mean volume (PMV) 10.3 fL Normal 9.0-12.7 [facility] Comment on above: Performed By: #### C BCDIF, PT, PTT, CMP, MG1 ####[facility] [address]juw[address] [place] [address] Platelets 216 10*3/uL Normal 150-400 [facility] Comment on above: Performed By: #### C BCDIF, PT, PTT, CMP, MG1 ####[facility] [address]qxabtcft[address] [place] [address] WBC (Leukocytes) 20.27 10*3/uL High 3.70-11.00 [facility] Comment on above: Performed By: #### C BCDIF, PT, PTT, CMP, MG1 ####[facility] [address]iac[address] [place] [address] CONSULT PROGon 12-28-2016 CONSULT PROG HNO ID: [id number] thor: Toma GoldbergbService: GastroenterologyAuthor Type: PhysicianType: Consult Progress NoteFiled: 12/28/2016 1:34 PMNote Text:GASTROENTEROLOGY CONSULT PROGRESS NOTEPatient Name: Laura StarkMRN: [id number] DATE: December 28, 2016SERVICE TIME: 10:18 AMASSESSMENT1. Fecal leakage with constipation2. Rectal bleeding - suspect hemorrhoidal in the context of constipation-resolved3. GERD4. Mildly elevated ALT5. Asthma exacerbation / PNA (MRSA and E.coli)6. New pAFIB (Eliquis/Aspirin) s/p cardioversion . Hyperthyroidism??PLAN- Continue Hemorrhoidal HC 25 mg NC twice daily x 7 days (12/23/16)- Continue [...] BP Temp Temp src Pulse Resp SpO2 Amrtge55/14/17 1010 - - - 83 18 96 [...] x 3. Cooperative. NADEYES: No scleral icterusSKIN: [place] in color. No jaundiceLUNGS: Diminished bilateral bases [...] RECENT COLONOSCOPY: 01/09/2013. (Peter Lerma MD - [place]).Screening1. The perianal and digital rectal examinations were normal.2. The colon (entire examined portion) was moderately tortuous.3. The exam was otherwise without abnormality.4. Good bowel prepSIGNATURE: Vivian Martínez, CNSDATE: December 28, 2016TIME: 10:18 AM Normal [facility] CONSULT PROG HNO ID: [id number] thor: PARVIN Roldanervice: Infectious DiseaseAuthor Type: PhysicianType: [...] 1.24 1.22Microbiology data: reviewedImaging data: Du Mcginnis [id number]/14/17281: 52 AM Normal [facility] Comp Metabolic Panelon 12-28 Alanine aminotransferase (ALT) 69 U/L High 0-45 [facility] Comment on above: Performed By: #### C BCDIF, PT, PTT, CMP, MG1 ####[facility] [address] [place] [address] Albumin 3.4 g/dL Low 3.5-5.0 [facility] Comment on above: Performed By: #### C BCDIF, PT, PTT, CMP, MG1 ####[facility] [address] [place] [address] Alkaline phosphatase (ALP) 85 U/L Normal 40-150 [facility] Comment on above: Performed By: #### C BCDIF, PT, PTT, CMP, MG1 ####[facility] [address] [place] [address] Anion gap 17 mmol/L High 0-15 [facility] Comment on above: Performed By: #### C BCDIF, PT, PTT, CMP, MG1 ####[facility] [address]oc[address] [place] [address] Aspartate aminotransferase (AST) 22 U/L Normal 7-40 [facility] Comment on above: Performed By: #### C BCDIF, PT, PTT, CMP, MG1 ####[facility] [address] [place] [address] Bilirubin (total) 0.7 mg/dL Normal 0.0-1.5 [facility] Comment on above: Performed By: #### C BCDIF, PT, PTT, CMP, MG1 ####[facility] [address] [place] [address] Calcium 8.9 mg/dL Normal 8.5-10.5 [facility] Comment on above: Performed By: #### C BCDIF, PT, PTT, CMP, MG1 ####[facility] [address] [place] [address] Chloride 87 mmol/L Low 98-110 [facility] Comment on above: Performed By: #### C BCDIF, PT, PTT, CMP, MG1 ####[facility] [address]ov[address]78 [place] [place] [address] CO2 25 mmol/L Normal 23-32 [facility] Comment on above: Performed By: #### C BCDIF, PT, PTT, CMP, MG1 ####[facility] Eg[address]ja[address] [place] [address] Creatinine 1.15 mg/dL Normal 0.70-1.40 [facility] Comment on above: Performed By: #### C BCDIF, PT, PTT, CMP, MG1 ####[facility] Vfbpfetafi7090 [place] [address] eGFR (non-black) 48 . Normal [facility] Comment on above: Result Comment: eGFR (Estimated [...] #### C BCDIF, PT, PTT, CMP, MG1 ####[facility] Wbtwuihgvi2165 [place] [address] eGFR (non-black) 58 mL/min/{1.73_m2} Normal [facility] Comment on above: Performed By: #### C BCDIF, PT, PTT, CMP, MG1 ####[facility] Qydjqwxkud5949 [place] [address] Glucose mass conc 223 mg/dL High 65-100 [facility] Comment on above: Performed By: #### C BCDIF, PT, PTT, CMP, MG1 ####[facility] Jseqfgqmpb4863 [place] [address] Potassium molar conc 3.3 mmol/L Low 3.5-5.0 [facility] Comment on above: Performed By: #### C BCDIF, PT, PTT, CMP, MG1 ####[facility] Mroqrmlbcb4621 [place] [address] Protein 5.9 g/dL Low 6.0-8.4 [facility] Comment on above: Performed By: #### C BCDIF, PT, PTT, CMP, MG1 ####[facility] Fpyplnzwuu5134 [place] [address] Sodium 129 mmol/L Low 132-148 [facility] Comment on above: Performed By: #### C BCDIF, PT, PTT, CMP, MG1 ####[facility] Ynzpqubccl5786 [place] [address] Urea nitrogen 47 mg/dL High 8-25 [facility] Comment on above: Performed By: #### C BCDIF, PT, PTT, CMP, MG1 ####[facility] Yngbmjfqbb1202 [place] [address] NURSING PROGon 12-28-2016 NURSING PROG HNO ID: [id number] thor: Maritza (Rn) Delma, RNService: (none)Author Type: Registered NurseType: Nursing Progress NoteFiled: 12/28/2016 6:49 PMNote Text: Nursing Progress NotePatient Name: Laura StarkMRN: [id number] Location: [place] [id number]___ Daily Note:0815- Resting in bed. Transferred to [...] Beth GROVES orient.1010- Attempted to transfer to [facility] twice, pt unable to support weight.Returned to chair. Will retry when pt ready. Call light within reach.1110- Dr. Guillermo aware of 2 hour PC blood sugar of 343. No orders received.States to call him with lunch reading.1130- Assist Mira OT with standing pt, pt unable to transfer to [facility],bedpan placed while up in chair. Pericare provided [...] was completed by: Maritza Nguyễn RN Normal [facility] NURSING PROG HNO ID: [id number] thor: Sarah (Rn) LEVI Lynnervice: NursingAuthor Type: Registered NurseType: Nursing Progress NoteFiled: 12/28/2016 6:30 AMNote Text: Nursing Progress NotePatient Name: Laura StarkMRN: [id number] Location: [place] [address]/[id number]___ Daily Note:0625 Dr Nugent paged regarding AM labs.This note was completed by: Sarah Lynn RN [facility] PLAN OF CAREon 12-28-2016 PLAN OF CARE HNO ID: [id number] thor: Kamaljit Jimenez: EndocrinologyAuthor Type: PhysicianType: Plan [...] cell (CULTURELLE) capsule 1 capsuleORAL DAILY Vivian (Mapping Pilot) Rishi Newell 1 capsule at 12/28/16 0932flecainide 100 mg tab(s) (TAMBOCOR) 100 mg ORAL q 12 H Nixon Enciso Ffimidko390 mg at 12/28/16 0933diltiazem CD 360 mg cap(s) (CARDIZEM CD, CARTIA XT) 360 mg ORAL DAILYMattjuany Enciso Micheal 360 mg at 12/28/16 0933piperacillin-tazobacta [...] ORAL BID Yatish Jovanna 5 mg at 014807nphxfbw, enteric coated 81 mg tab(s) (ASPIRIN, ENTERIC COATED) 81 mg ORALDAILY Yatish Jovanna 81 mg at 12/28/16 0933hydrocortisone 25 mg suppository (HEMORRHOIDAL HC) 25 mg RECTAL q 12 HAlicia (Mapping Pilot) Blackwell Reece 25 mg at 12/28/16 0932albuterol [...] H PRN YatishGoyal 4 mg at 12/24/16 63922.9% NaCl 10 mL 10 mL INTRAVENOUS q [...] will consider changing her regimen.Kamaljit Guillermo MDNov2016 [facility] PROGRESSon 12-28-2016 PROGRESS HNO ID: [id number] thor: Ronny Antonio RamanavarapuService: Cardiovascular DiseaseAuthor Type: PhysicianType: Progress NotesFiled: 12/28/2016 5:07 PMNote Text:INPATIENT CONSULT PROGRESS NOTESPatient Name: Laura StarkMRN: [id number] of SERVICE: 12/28/2016TIME of SERVICE: 5:05 PMCONSULTING [...] capillary refill., No ulcersPULSES: 2+ radialRecent Labs 11/14/878917GXM 20.27*RBC 4.22HB 11.8HCT 36.2PLT 216MCV 85.8MCH 28.0MPV 10.3CMP:Recent Labs NA 129*K 3.3*CHLOR 87*CO2 25BUN 47*CREAT 1.15GLUC 223*TPROT 5.9*CA 8.9TBILI 0.7ALKPHOS 85ALT 69*AST 22ANION 17*Cardiac Enzymes: No results for input(s): CK, MB, CKMB, TROPT in the last24 hours.SIGNATURE: Ronny Valente [facility]; [phone]: December 28, 2016TIME: 5:05 PM [facility] PROGRESS HNO ID: [id number] thor: Kiara Fleming: General Internal MedicineAuthor Type: [...] rate 18, height 157.5 cm (5' 2), gdeimo880.8 kg (233 lb 4 oz), SpO2 98 [...] MD PATIENT NAME: Laura Stark PAGER/CONTACT #: [facility] THERAPY NTon 12-28-2016 THERAPY NT HNO ID: [id number] thor: Juli (Pt) KapteinService: Physical TherapyAuthor Type: Physical TherapistType: Therapy (PT/OT/Speech/Resp)Filed: 12/28/2016 1:31 PMNote Text:Physical Therapy TreatmentSERVICE DATE: 12/28/2016SERVICE TIME: 1219 to 1246ROOM: [id number] Discharge Disposition: Subacute/SNFRecommended Discharge Disposition Comments: Patient [...] Reduced mobility-other;Muscle Weakness (generalized)Interventions Provided: Therapeutic Exercise (26029);Therapeutic Activity(59620)Therapeutic Exercise (84705) Treatment Minutes: 101 unitSkilled Intervention(s): Instruction in [...] to patient on benefits/rationale for exercisesTherapeutic Activity (52812) Treatment Minutes: 151 unitSkilled Intervention(s): Instruction in [...] + for Ecoli and MRSA??Patient transferred from [facility] to telemetry unit 12/18 due to EKG results ofatrial fibrillation with RVR and possible inferior subendocardial injury,B atelectasis. 12/23/16: GI consulted due to rectal bleeding. 12/27/16:Underwent FERNANDO and cardioversion due to atrial fib-converted to sinusrhythm.??History of hyperthyroidism, Graves vs. Toxic nodule, asthma, DVT, PE,diabetes?Patient Report: Patient sitting up in bedside chair at [facility], states Iwas doing so good and [...] spouse completes, full flight [facility] [place]Equipment Owned: Commode-Raised;Grab Bars-Shower;Hand Held Shower;StandardWalker;Show er Chair (raised toilet seat with arms)Prior Functional Level: Within Functional Limits;Required AssistanceAssistance Required With: Other: See CommentPrior Functional Level Comments: Patient with decline in mobility for thepast 10 weeks with gradual debility, reports recent difficulty with allmobility and ADLs REHAB TRAINER; 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, [...] up in bedside chair with lunch tray zdt-rcxdzv-cyzaqdbig, call melgar and personal belongings in reach, [...] details for this therapy evaluation/treatment.JESSICA PHILLIP: Juli Bravo, PT PATIENT NAME: Laura StarkDATE: December 28, 2016 : 1:19 PM PAGER/CONTACT #: [phone] [facility] THERAPY NT HNO ID: [id number] thor: Mira (Ot/L) CecilService: Occupational TherapyAuthor Type: Occupational TherapistType: Therapy (PT/OT/Speech/Resp)Filed: 12/28/2016 12:27 PMNote Text:Occupational Therapy TreatmentSERVICE DATE: 12/28/2016SERVICE TIME: 1103 to 1138ROOM: [id number] Discharge Disposition: Acute RehabRecommended Discharge Disposition Comments: [...] for:Ambulation;Transfers;C leaning;Laundry;Meals;Stai rs;Safety;SelfCare;Shoppin g;TransportationRecommende d Discharge Equipment: Office Rn;Long Handled Sponge (tub transferbench)OT Recommendations to Nursing: [...] Impairment;BalanceImpaired ;EdemaPatient /Caregiver Goals: Go to Rehab ([facility]); Care For Self(with eventual return to [...] of daily living (ADL)Interventions Provided: Therapeutic Activity (23097);Self Care HomeManagement (45851)Therapeutic Activity (62925) Treatment Minutes: 161 unitSkilled Intervention(s): Instructed pt [...] extremities touching chair/bed and reaching back forsurface.Self Shelter Management (73663) Treatment Minutes: 81 unitSkilled Intervention(s): Pt educated in role of OT. Pt educated inimportance of out of bed activity (active participation in daily care, sit<> stand attempts/practice) for rehabilitation and to prevent functionaldecline. Pt educated in benefits of donning hospital non-skid socks ratherth home socks for increased traction for standing for [...] + for Ecoli and MRSA?Patient transferred from [facility] to telemetry unit 12/18 due to EKG [...] reports recent difficulty with allmobility and ADLs REHAB TRAINER; 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, [...] CM) notified of current ptstatus.SIGNATURE: Mira Willis OT/Aris PATIENT NAME: Laura StarkDATE: December 28, 2016 : 12:03 PM PAGER: [phone] [facility] ANES Pramod 12-27-2016 ANES POST HNO ID: [id number] thor: Andrew GautamSerdipake: AnesthesiologyAuthor Type: AnesthesiologistType: Anesthesia PostOpFiled: 12/27/2016 4:04 PMNote Text:POST ANESTHESIA EVALUATION NOTESERVICE DATE: 12/27/2016SERVICE TIME: 1330DOB: 1955Vitals: 12/28/1711Temp: 37.1 ?C (98.7 ?F) 37.2 ?C (99 ?F) 37.5 ?C (99.5 ?F) 37 ?C (98.6 ?F) 12/27/17127BP: 118/56 115/55 111/55 130/66 12/27/1712Pulse: 80 80 [...] 27, 2016 : 4:04 PM PAGER/CONTACT #: [phone] [facility] ANES PREOPon 12-27-2016 ANES PREOP HNO ID: [id number] thor: Andrew GautamService: AnesthesiologyAuthor Type: AnesthesiologistType: Anesthesia PreOpFiled: 12/27/2016 12:01 PMNote Text: ANESTHESIOLOGY DAY OF SURGERY NOTESERVICE DATE: 12/27/2016SERVICE TIME: 12:01 PMDOB: 4Procedure(s) (LRB):ECHOCARDIOGRAM TRANSESOPHOGEAL (N/A)CARDIOVERSION EXTERNAL ELECTIVE (N/A)Surgeon(s):Ronny WashingtonpuEstimated body mass index is 42.26 kg/(m2) as [...] , low cervical- COLONOSCOP W/ OR W/O [facility] SPEC 01-09-13- DEBRIDE SKIN AND SUBQ TISSU [...] q 12 H Yatish Jovanna 40 mg at102/27/16 0908[MAR Hold due to Transfer] psyllium Husk 1.56 g cap(s) 1.56 g ORAL DAILYYatish Jovanna 1.56 g at 12/26/16 08[MAR Hold due to Transfer] lactobacillus rhamnosus 10 billion cell(CULTURELLE) capsule 1 capsule ORAL DAILY Vivian (Mapping Pilot) Blackwell Reece 1 capsuleat 12/26/16854[MAR Hold due to Transfer] flecainide 100 mg tab(s) (TAMBOCOR) 100 mg ORALq 12 H Nixon Enciso Micheal 100 mg at 12/27/16916[MAR Hold due to Transfer] diltiazem CD 360 mg cap(s) (CARDIZEM CD, CARTIAXT) 360 mg ORAL DAILY Nixon A Micheal 360 mg at 12/27/16916[MAR Hold due [...] (NovoLIN N, HumuLIN N) 14 Units SUBCUTANEOUS Jose Culver MD 14 Units at 12/26/162031[MAR Hold due to Transfer] apixaban 5 mg tab(s) (ELIQUIS) 5 mg ORAL BIDYatish Jovanna 5 mg at 12/27/16 0916[MAR Hold due to Transfer] aspirin, enteric coated 81 mg tab(s) (ASPIRIN,ENTERIC COATED) 81 mg ORAL DAILY Yatish Jovanna 81 mg at 12/27/16916[MAR Hold due to Transfer] hydrocortisone 25 mg suppository (HEMORRHOIDALHC) 25 mg RECTAL q 12 H Vivian (Mapping Pilot) Blackwell Reece 25 mg at 12/26/162023[MAR Hold due to [...] mg ORALDAILY Mia Hasan 5 mg at 12/27/16916[MAR Hold due to Transfer] ondansetron (PF) 4 [...] mL ORAL q 6 H PRN Yatish Jovanna[APR Hold due to Transfer] dextrose 40 % 15 g (INSTA-GLUCOSE) 15 g ORALPRN GoyalOr[APR Hold due to Transfer] glucagon 1 mg injection (GLUCAGEN) 1 mgINTRAMUSCULAR PRN GoyalOr[APR Hold due to Transfer] dextrose 50% in water 25 mL syringe 12.5 gINTRAVENOUS PRN Jovanna[APR Hold due to Transfer] HYDROcodone 5 mg - acetaminophen 325 mg tablet(NORCO) 1-2 tablet ORAL q 6 H PRN Jovanna 2 tablet at 12/18/16 0436[APR Hold due to Transfer] montelukast 10 mg tab(s) (SINGULAIR) 10 mg ORALAT BEDTIME Yatish Jovanna 10 mg at 12/26/162023[APR Hold due to Transfer] magnesium oxide 400 mg tab(s) (MAG-OX) 400 mgORAL DAILY h Jovanna 400 mg at 12/27/16 09[APR Hold due to Transfer] spironolactone 25 mg tab(s) (ALDACTONE) 25 mgORAL BID Yatish Jovanna 25 mg at 12/27/16 0917[APR Hold due to Transfer] hydroCHLOROthiazide 25 mg tab(s) (HYDRODIURIL,ESIDRIX) 25 mg ORAL DAILY tish Jovanna 25 mg at 12/27/16 0916[APR Hold due to Transfer] iv contrast (radiology [...] December 27, 2016 : 12:01 PM CSN: [id number] Normal [facility] CBCon 12-27-2016 Erythrocyte distribution width Auto Ratio (RBC) 16.8 % High 11.5-15.0 [facility] Comment on above: Performed By: #### C BCDIF, PT, PTT, CMP, MG1 ####[facility] [address]knfpg[address] [place] [address] Erythrocytes (RBC) 4.41 10*6/uL Normal 3.90-5.20 [facility] Comment on above: Performed By: #### C BCDIF, PT, PTT, CMP, MG1 ####[facility] Jfnfnndavl0681 [address] Hematocrit (HCT) 37.7 % Normal 36.0-46.0 [facility] Comment on above: Performed By: #### C BCDIF, PT, PTT, CMP, MG1 ####[facility] Dlujefocfn0486 [place] [id number] Hemoglobin mass conc (Bld) 12.1 g/dL Normal 11.5-15.5 [facility] Comment on above: Performed By: #### C BCDIF, PT, PTT, CMP, MG1 ####[facility] Tmixiwxbwk5684 [place] [phone] MCH 27.4 pG Normal 26.0-34.0 [facility] Comment on above: Performed By: #### C BCDIF, PT, PTT, CMP, MG1 ####[facility] Uaotualxbr5041 [address] MCHC mass conc (RBC) 32.1 g/dL Normal 30.5-36.0 [facility] Comment on above: Performed By: #### C BCDIF, PT, PTT, CMP, MG1 ####[facility] Qtbajwgswa7806 [address]7[address] MCV 85.5 fL Normal 80.0-100.0 [facility] Comment on above: Performed By: #### C BCDIF, PT, PTT, CMP, MG1 ####[facility] Yojvplnvmh8748 [address] Platelet mean volume (PMV) 10.6 fL Normal 9.0-12.7 [facility] Comment on above: Performed By: #### C BCDIF, PT, PTT, CMP, MG1 ####[facility] Ushhatwkwo3762 [address] Platelets 206 10*3/uL Normal 150-400 [facility] Comment on above: Performed By: #### C BCDIF, PT, PTT, CMP, MG1 ####[facility] Exlzawcddb1100 [address] WBC (Leukocytes) 14.19 10*3/uL High 3.70-11.00 [facility] Comment on above: Performed By: #### C BCDIF, PT, PTT, CMP, MG1 ####[facility] Vcgbsaoese3676 [address]7[address] CONSULT PROGon 12-27-2016 CONSULT PROG HNO ID: [id number] thor: Toma GoldbergbService: GastroenterologyAuthor Type: PhysicianType: Consult Progress NoteFiled: 12/29/2016 3:40 PMNote Text:GASTROENTEROLOGY CONSULT PROGRESS NOTEPatient Name: Laura StarkMRN: [id number] DATE: December 27, 2016SERVICE TIME: 11:40 AMASSESSMENT1. Fecal leakage with constipation- improved per patient2. Rectal bleeding - suspect hemorrhoidal in the context of constipation-resolved3. GERD4. Asthma exacerbation / PNA (MRSA and E.coli)5. New pAFIB (Eliquis/aspirin)?/ Hyperthyroidism??PLAN- Cardioversion this am as per cardiology- Continue Hemorrhoidal HC 25 mg NC twice daily- Continue psyllium 2 capsules daily- [...] Starkey findingsconfirmed. Plan as outlined.Toma Funk MDNovember 20161:00 PM INTE RVAL HPI: Continues to report [...] BP Temp Temp src Pulse Resp SpO2 Kfxukx84/13/17 1035 - - - 72 20 - [...] x 3. Cooperative. NADEYES: No scleral icterusSKIN: [place] in color. No jaundiceLUNGS: Expiratory wheezing bilateral [...] RECENT COLONOSCOPY: 01/09/2013. (Peter Lerma MD - [place]).Screening1. The perianal and digital rectal examinations were normal.2. The colon (entire examined portion) was moderately tortuous.3. The exam was otherwise without abnormality.4. Good bowel prep?SIGNATURE: Ava Mo CNPDATE: December 27, 2016TIME: 11:40 AM Normal [facility] CONSULT PROG HNO ID: [id number] thor: Fern Alvarengae: Pulmonary DiseaseAuthor Type: PhysicianType: Consult Progress NoteFiled: 12/27/2016 12:56 PMNote Text: RESPIRATORY INSTITUTEPULMONARY MEDICINEIN-PATIENT CONSULT PROGRESS NOTESERVICE DATE: 12/27/2016ASSESSMENT:Asthm a with acute exacerbationBilateral atelectasisRecent sputum (+) E coli and MRSA ([facility] - 12/06/16)Atrial fibrillation with RVR; uncontrolledRemote [...] feeling improved. No acute events over the tblx66n. Patient's heart rate remains uncontrolled, still in [...] BP Temp Temp src Pulse Resp SpO2 Oitpgj67/13/17 1035 - - - 72 20 - [...] 27, 2016 : 10:58 AM PAGER/CONTACT #: [phone] STAFF PHYSICIAN NOTE OF PERSONAL INVOLVEMENT IN [...] spent counseling and/orcoordinating care for the patient. Eftc-ww-flyy time was 25 minutesSIGNATURE: Fern Turcios, MDPAGER: [phone] of SERVICE: December 27, 2016TIME of SERVICE: 12:55 PM [facility] CONSULT PROG HNO ID: [id number] thor: PARVIN Roldanervice: Infectious DiseaseAuthor Type: PhysicianType: [...] appears S to cefepime, cipro andmerremSupportive careWean W9Qwboesrvov careMEDICATIONS: reviewed.Current hospital medications:morphine 1-2 mg injection [...] data: Du Mcginnis [phone]/27/201610 :27 AM Normal [facility] Comp Metabolic Panelon 12-27 Alanine aminotransferase (ALT) 65 U/L High 0-45 [facility] Comment on above: Performed By: #### C BCDIF, PT, PTT, CMP, MG1 ####[facility] [address]jeiw[address]typ[address] [place] [address] Albumin 3.3 g/dL Low 3.5-5.0 [facility] Comment on above: Performed By: #### C BCDIF, PT, PTT, CMP, MG1 ####[facility] Hfmvrstpxu6880 [place] [address] Alkaline phosphatase (ALP) 81 U/L Normal 40-150 [facility] Comment on above: Performed By: #### C BCDIF, PT, PTT, CMP, MG1 ####[facility] [address] [place] [address] Anion gap 14 mmol/L Normal 0-15 [facility] Comment on above: Performed By: #### C BCDIF, PT, PTT, CMP, MG1 ####[facility] [address] [place] [address] Aspartate aminotransferase (AST) 17 U/L Normal 7-40 [facility] Comment on above: Performed By: #### C BCDIF, PT, PTT, CMP, MG1 ####[facility] [address] [place] [address] Bilirubin (total) 0.8 mg/dL Normal 0.0-1.5 [facility] Comment on above: Performed By: #### C BCDIF, PT, PTT, CMP, MG1 ####[facility] [address] [place] [address] Calcium 8.6 mg/dL Normal 8.5-10.5 [facility] Comment on above: Performed By: #### C BCDIF, PT, PTT, CMP, MG1 ####[facility] Mldycsihje4770 [place] [address] Chloride 92 mmol/L Low 98-110 [facility] Comment on above: Performed By: #### C BCDIF, PT, PTT, CMP, MG1 ####[facility] Wgvagmkisv0476 [place] [address] CO2 25 mmol/L Normal 23-32 [facility] Comment on above: Performed By: #### C BCDIF, PT, PTT, CMP, MG1 ####[facility] Xdmrmkflgu3186 [place] [address] Creatinine 1.24 mg/dL Normal 0.70-1.40 [facility] Comment on above: Performed By: #### C BCDIF, PT, PTT, CMP, MG1 ####[facility] Mmwevstotb3537 [place] [address] eGFR (non-black) 44 . Normal [facility] Comment on above: Result Comment: eGFR (Estimated [...] #### C BCDIF, PT, PTT, CMP, MG1 ####[facility] Dpnsobdyxq1612 [place] [address] eGFR (non-black) 53 mL/min/{1.73_m2} Normal [facility] Comment on above: Performed By: #### C BCDIF, PT, PTT, CMP, MG1 ####[place] [address] Glucose mass conc 129 mg/dL High 65-100 [facility] Comment on above: Performed By: #### C BCDIF, PT, PTT, CMP, MG1 ####[facility] Zllcemyhax7239 [place] [address] Potassium molar conc 3.4 mmol/L Low 3.5-5.0 [facility] Comment on above: Performed By: #### C BCDIF, PT, PTT, CMP, MG1 ####[facility] [address] [place] [address] Protein 5.6 g/dL Low 6.0-8.4 [facility] Comment on above: Performed By: #### C BCDIF, PT, PTT, CMP, MG1 ####[facility] Mzzknhwgne1576 [place] [address] Sodium 131 mmol/L Low 132-148 [facility] Comment on above: Performed By: #### C BCDIF, PT, PTT, CMP, MG1 ####[facility] Zwhdevjwxe8488 [place] [address] Urea nitrogen 45 mg/dL High 8-25 [facility] Comment on above: Performed By: #### C BCDIF, PT, PTT, CMP, MG1 ####[facility] Bkdqkhkhsc8661 [place] [address] Magnesiumon 12-27-2016 Magnesium 2.4 mg/dL Normal 1.7-2.6 [facility] Comment on above: Performed By: #### C BCDIF, PT, PTT, CMP, MG1 ####[facility] Uyyijiwltp1624 [place] [address] NURSING PROGon 12-27-2016 NURSING PROG HNO ID: [id number] thor: Mckenzie (Rn) Sergio, RNService: (none)Author Type: Registered NurseType: Nursing Progress NoteFiled: 12/27/2016 1:26 PMNote Text: Nursing Progress NotePatient Name: Laura StarkMRN: [id number] Location: [place] Vascular Surgery Physician/[place] Cath Lab Daily Note:Attempted to call report to floor. Nurse in a pt room and will returnphone call.This note was completed by: Mckenzie Hill, RN [facility] NUTRITIONon 12-27-2016 NUTRITION HNO ID: [id number] thor: Lamar Cesar) FerroService: Nutrition TherapyAuthor Type: Registered DietitianType: NutritionFiled: 12/27/2016 9:32 AMNote Text:NUTRITION THERAPY PROGRESS NOTESERVICE DATE: 12/27/2016SERVICE TIME: 0915RECOMMENDED DIAGNOSIS: MODERATE PROTEIN-CALORIE MALNUTRITION perRegistered Dietitian on 12/23NUTRITION CARE PLANIntervention:Trial medical nutrition shake EHP 1x dailyAdvance diet as medically able (NPO [...] StarkDATE: December 27, 2016 : 9:29 AM [facility] PLAN OF CAREon 12-27-2016 PLAN OF CARE HNO ID: [id number] thor: Natasha Enciso (Rn) Naldo, RNService: Case [...] 30-59 Ml/MinHypertensionGerd (Gastroesophageal Reflux Disease)Attendees Present at Rounds:Corrugator Supervisor: Natasha: sisterPatient: Laura Reyes Araceli Nurse: Tristian Discussed on Rounds:Plan of CareAnticipated Discharge Disposition:Custodial FacilityLast Vitals: BP 116/61 Pulse 81 Temp (Src) 98.8 (Oral) Resp 19 Ht5' 2 (1.58m) Wt 231 lb 0.7 oz (104.8kg) SpO2 98% BMI 42.25kg/(m2).FERNANDO and cardioversion TODAYPLAN [facility] has Precert, possible need to re [...] December 27, 2016 : 10:23 AM CSN: [id number] [facility] PROCEDUREon 12-27-2016 PROCEDURE HNO ID: [id number] thor: Ronny De La TorreuService: Cardiovascular DiseaseAuthor Type: PhysicianType: ProceduresFiled: 12/27/2016 12:40 PMNote Text:BRIEF OPERATIVE NOTE - TEEPatient Name: Laura StarkMRN: [id number] Date: 12/27/2016INDICATION: AFSEDATION: MACPT/INR: EliquisFINDINGS:Normal EFNo smoke or thrombusMR ARCOMPLICATIONS: NoneCONDITION: GoodFOLLOW UP: Two weeksSignature: ALICJA Fountainate: December 27, 2016Time: 12:39 PM [facility] PROCEDURE HNO ID: [id number] thor: Ronny Sparrowrvice: Cardiovascular DiseaseAuthor Type: PhysicianType: ProceduresFiled: 12/27/2016 12:39 PMNote Text:BRIEF OPERATIVE NOTE - CARDIOVERSIONPatient Name: Laura StarkMRN: [id number] Date: 12/27/2016INDICATION: Atrial fibrillationSEDATION: MACJOULES: 275PT/INR: EliquisFINDINGS: Converted to sinusCOMPLICATIONS: NoneCONDITION: StableFOLLOW UP: Two weeksSignature: Ronny Washingtonalyssa, MDDate: December 27, 2016Time: 12:37 PM [facility] PROGRESSon 12-27-2016 PROGRESS HNO ID: [id number] thor: Ronny De La TorreuService: Cardiovascular DiseaseAuthor Type: PhysicianType: Progress NotesFiled: 12/27/2016 4:12 PMNote Text:INPATIENT CONSULT PROGRESS NOTESPatient Name: Laura StarkMRN: [id number] of SERVICE: 12/27/2016TIME of SERVICE: 4:10 PMCONSULTING [...] rate 20, height 157.5 cm (5' 2), lpasib188.8 kg (237 lb 10.5 oz), SpO2 96 [...] in the last24 hours.SIGNATURE: BECKY Fountain; [phone]: December 27, 2016TIME: 4:10 PM [facility] PROGRESS HNO ID: [id number] thor: Kiara Fleming: General Internal MedicineAuthor Type: PhysicianType: Progress NotesFiled: 12/27/2016 12:51 PMNote Text:INTERNAL MEDICINE PROGRESS NOTEADMITTING PHYSICIAN: Kiara Galloway COMPLAINT: improving cough and wheezing today, able to expectoratenow, no further bleeding, feeling weak, legs are week.Current Facility-Administered Medications:[APR Hold due to Transfer] morphine 1-2 mg injection 1-2 mg INTRAVENOUS q4 H PRN[APR Hold due to Transfer] methylPREDNISolone sod succinate(PF) [...] 10 mL 10 mL INTRAVENOUS q 12 H[APR Hold due to Transfer] 0.9% NaCl 20 mL 20 mL INTRAVENOUS PRN[APR Hold due to Transfer] codeine-guaiFENesin 5-10 mL oral liquid(ROBITUSSIN AC) 5-10 mL ORAL q 6 H PRN[APR Hold due to Transfer] dextrose 40 % 15 g (INSTA-GLUCOSE) 15 g ORALPRNOr[APR Hold due to Transfer] glucagon 1 mg injection (GLUCAGEN) 1 mgINTRAMUSCULAR PRNOr[APR Hold due to Transfer] dextrose 50% in water 25 mL syringe 12.5 gINTRAVENOUS PRN[APR Hold due to Transfer] HYDROcodone 5 mg - acetaminophen 325 mg tablet(NORCO) 1-2 tablet ORAL q 6 H PRN[APR Hold due to Transfer] montelukast 10 mg tab(s) (SINGULAIR) 10 mg ORALAT BEDTIME[APR Hold due to Transfer] magnesium oxide 400 mg tab(s) (MAG-OX) 400 mgORAL DAILY[APR Hold due to Transfer] spironolactone 25 mg tab(s) (ALDACTONE) 25 mgORAL BID[APR Hold due to Transfer] hydroCHLOROthiazide 25 mg tab(s) (HYDRODIURIL,ESIDRIX) 25 mg ORAL DAILY[APR Hold due to Transfer] iv contrast (radiology procedure) INTRAVENOUSAS DIRECTED PRNINTERVAL HISTORY OF PRESENT ILLNESS: No n/v/d.No orthopnea, pnd,cpain, fever, chills.Consult notes reviewed.OBJECTIVEPHYSICAL EXAM:Blood pressure 140/70, pulse 97, temperature 37.1 ?C (98.7 ?F),temperature source Oral, resp. rate 20, height 157.5 cm (5' 2), .8 kg (231 lb 0.7 oz), SpO2 96 [...] recent sputum cx with MRSA and E.coli: Dec. iv steroids and iv zosyn, Continue nebs. [...] MD PATIENT NAME: Laura Stark PAGER/CONTACT #: [facility] THERAPY NTon 12-27-2016 THERAPY NT HNO ID: [id number] thor: Ange (Ot) Sushantervice: Occupational TherapyAuthor Type: Occupational TherapistType: Therapy (PT/OT/Speech/Resp)Filed: 12/27/2016 1:47 PMNote Text:OCCUPATIONAL THERAPY MISSED VISITSERVICE DATE: 12/27/2016SERVICE TIME: 1200 to 1201ROOM: MA Cath LabAttempted Treatment. Patient not seen due to Test/Procedure. Willre-attempt as schedule allows.SIGNATURE: MANOHAR Gibbons/L PATIENT NAME: Laura StarkDATE: December 27, 2016 : 1:47 PM PAGER/CONTACT #:[phone] [facility] US DVT LOWER BILon 7 US DVT LOWER ANGELO * * *Final Report* * *DATE OF EXAM: Dec 27 2016 8:28PM NATHALIE 1005 - US DVT LOWER ANGELO / [...] LORENZO MD on Dec 27 2016 8:58PM [id number] Normal [facility] CBCon 12-26-2016 Erythrocyte distribution width Auto Ratio (RBC) 16.7 % High 11.5-15.0 [facility] Comment on above: Performed By: #### C BCDIF, PT, PTT, CMP, MG1 ####[facility] [address] [place] [address] Erythrocytes (RBC) 4.46 10*6/uL Normal 3.90-5.20 [facility] Comment on above: Performed By: #### C BCDIF, PT, PTT, CMP, MG1 ####[place] [address] Hematocrit (HCT) 38.1 % Normal 36.0-46.0 [facility] Comment on above: Performed By: #### C BCDIF, PT, PTT, CMP, MG1 ####[facility] [address] [place] [address] Hemoglobin mass conc (Bld) 12.3 g/dL Normal 11.5-15.5 [facility] Comment on above: Performed By: #### C BCDIF, PT, PTT, CMP, MG1 ####[facility] [address] [place] [address] MCH 27.6 pG Normal 26.0-34.0 [facility] Comment on above: Performed By: #### C BCDIF, PT, PTT, CMP, MG1 ####[facility] [address] [place] [address] MCHC mass conc (RBC) 32.3 g/dL Normal 30.5-36.0 [facility] Comment on above: Performed By: #### C BCDIF, PT, PTT, CMP, MG1 ####[facility] Dmjbtvvqbx9959 [address] MCV 85.4 fL Normal 80.0-100.0 [facility] Comment on above: Performed By: #### C BCDIF, PT, PTT, CMP, MG1 ####[facility] [address]so[address] [place] [address] Platelet mean volume (PMV) 10.6 fL Normal 9.0-12.7 [facility] Comment on above: Performed By: #### C BCDIF, PT, PTT, CMP, MG1 ####[facility] [address] [place] [address] Platelets 193 10*3/uL Normal 150-400 [facility] Comment on above: Performed By: #### C BCDIF, PT, PTT, CMP, MG1 ####[facility] [address] [place] [address] WBC (Leukocytes) 13.19 10*3/uL High 3.70-11.00 [facility] Comment on above: Performed By: #### C BCDIF, PT, PTT, CMP, MG1 ####[facility] [address] [place] [address] CONSULT PROGon 12-26-2016 CONSULT PROG HNO ID: [id number] thor: Nixon Menjivar: Clinical CardiologyAuthor Type: PhysicianType: [...] BP Temp Temp src Pulse Resp SpO2 Cgcvxp29/12/17 1139 105/71 36.9 ?C (98.4 ?F) Oral [...] - - - 76 20 96 % -12/25/16 2019 129/67 36.4 ?C [...] bowel sounds present.EXTREMITIES: No edema.PULSES: Peripheral pulses present.MEDICATIONS:[facility] medications:psyllium Husk 1.56 g cap(s) 1.56 [...] imagingMost recent EKGPast 72 Hour Labs:Recent Labs WBC 13.19*RBC 4.46HB 12.3HCT 38.1MCV 85.4MCH 27.6MCHC 32.3RDWCV 16.7*PLT 193MPV 10.6GLUC 125*BUN 43*CREAT 1.22NA 132K 3.1*CHLOR 91*CO2 27TPROT 5.5*ALB 3.2*CA 8.5ALKPHOS 75TBILI 0.7AST 22ALT 62*Last Lab Drawn:TSH 0.242 12/18/2016ASSESSMENT/PLAN1. Persistent atrial flutter with intermittent RVR- on further evaluationof telemetry I do NOT think that she has had periods of NSR - she has beenin AFL the entire time2. Acute asthma exacerbation3. Hyperthyroidism4. CKD5. [facility] has recent echo showing normal LV systolic function and [facility] where [...] 26, 2016 : 1:14 PM PAGER/CONTACT #: [facility] CONSULT PROG HNO ID: [id number] thor: Toma GoldbergbService: GastroenterologyAuthor Type: PhysicianType: Consult Progress NoteFiled: 12/26/2016 11:23 AMNote Text:GASTROENTEROLOGY CONSULT PROGRESS NOTEPatient Name: Laura StarkMRN: [id number] DATE: December 26, 2016SERVICE TIME: 10:49 AMASSESSMENT1. Rectal bleeding - suspect hemorrhoidal in the context of constipation2. Fecal leakage with constipation3. GERD4. Asthma exacerbation / PNA (MRSA and E.coli)5. New pAFIB (Eliquis/aspirin) / Hyperthyroidism??PLAN- Continue Hemorrhoidal HC 25 mg NC twice daily- Continue psyllium 2 capsules daily- [...] BP Temp Temp src Pulse Resp SpO2 Szcopd32/12/17 0747 107/56 36.3 ?C (97.3 ?F) Oral 100 16 97 % -12/26/16 0422 132/73 36.4 ?C (97.5 ?F) Oral (!) 57 19 100 % 103.8 kg (228lb 13.4 oz)12/25/16 2304 123/62 36.4 ?C (97.5 ?F) Oral 70 18 96 % -12/25/162018 129/67 36.4 ?C (97.5 ?F) Oral 74 19 97 % -12/25/16 1505 121/65 36.9 ?C (98.4 ?F) Oral 78 18 98 % -12/25/16 1155 105/70 37.1 ?C (98.8 ?F) Oral (!) 55 19 97 % -GENERAL: Alert AND oriented x 3. Cooperative. NADEYES: No scleral icterusSKIN: [place] in color. No jaundiceLUNGS: Expiratory wheezing bilateral [...] DIRECTED PRNLABS:CBC, Coags, BMP, Mg, PhosRecent Labs 55815WBC 13.19* 13.16* 11.95*HB 12.3 12.4 12.0HCT 38.1 [...] RECENT COLONOSCOPY: 01/09/2013. (Peter Lerma MD - [place]).Screening1. The perianal and digital rectal examinations were normal.2. The colon (entire examined portion) was moderately tortuous.3. The exam was otherwise without abnormality.4. Good bowel prepSIGNATURE: Vivian Martínez, CNSDATE: December 26, 2016TIME: 10:49 AM Normal [facility] CONSULT PROG HNO ID: [id number] thor: PARVIN Roldanervice: Infectious DiseaseAuthor Type: PhysicianType: [...] 40Malnutrition of moderate degreeRECOMMENDATIONS:Cont inue zosynSupportive careWean I6Xzaylnapkg careMEDICATIONS: reviewed.Current hospital medications:morphine 1-2 mg injection [...] data: reviewedImaging data: Du Mcginnis [phone] Normal [facility] Comp Metabolic Panelon 12-26 Alanine aminotransferase (ALT) 62 U/L High 0-45 [facility] Comment on above: Performed By: #### C BCDIF, PT, PTT, CMP, MG1 ####[facility] [address] [place] [address] Albumin 3.2 g/dL Low 3.5-5.0 [facility] Comment on above: Performed By: #### C BCDIF, PT, PTT, CMP, MG1 ####[facility] [address] [place] [address] Alkaline phosphatase (ALP) 75 U/L Normal 40-150 [facility] Comment on above: Performed By: #### C BCDIF, PT, PTT, CMP, MG1 ####[facility] [address] [place] [address] Anion gap 14 mmol/L Normal 0-15 [facility] Comment on above: Performed By: #### C BCDIF, PT, PTT, CMP, MG1 ####[facility] [address] [place] [address] Aspartate aminotransferase (AST) 22 U/L Normal 7-40 [facility] Comment on above: Performed By: #### C BCDIF, PT, PTT, CMP, MG1 ####[facility] [address] [place] [address] Bilirubin (total) 0.7 mg/dL Normal 0.0-1.5 [facility] Comment on above: Performed By: #### C BCDIF, PT, PTT, CMP, MG1 ####[facility] [address] [place] [address] Calcium 8.5 mg/dL Normal 8.5-10.5 [facility] Comment on above: Performed By: #### C BCDIF, PT, PTT, CMP, MG1 ####[facility] [address] [place] [address] Chloride 91 mmol/L Low 98-110 [facility] Comment on above: Performed By: #### C BCDIF, PT, PTT, CMP, MG1 ####[facility] [address]ujc[address] [place] [address] CO2 27 mmol/L Normal 23-32 [facility] Comment on above: Performed By: #### C BCDIF, PT, PTT, CMP, MG1 ####[facility] [address] [place] [address] Creatinine 1.22 mg/dL Normal 0.70-1.40 [facility] Comment on above: Performed By: #### C BCDIF, PT, PTT, CMP, MG1 ####[facility] [address] [place] [address] eGFR (non-black) 45 . Normal [facility] Comment on above: Result Comment: eGFR (Estimated [...] #### C BCDIF, PT, PTT, CMP, MG1 ####[facility] [address] [place] [address] eGFR (non-black) 54 mL/min/{1.73_m2} Normal [facility] Comment on above: Performed By: #### C BCDIF, PT, PTT, CMP, MG1 ####[facility] [address] [place] [address] Glucose mass conc 125 mg/dL High 65-100 [facility] Comment on above: Performed By: #### C BCDIF, PT, PTT, CMP, MG1 ####[facility] [address] [place] [phone] Potassium molar conc 3.1 mmol/L Low 3.5-5.0 [facility] Comment on above: Performed By: #### C BCDIF, PT, PTT, CMP, MG1 ####[facility] [address]ts[address] [place] [phone] Protein 5.5 g/dL Low 6.0-8.4 [facility] Comment on above: Performed By: #### C BCDIF, PT, PTT, CMP, MG1 ####[facility] [address] [place] [phone] Sodium 132 mmol/L Normal 132-148 [facility] Comment on above: Performed By: #### C BCDIF, PT, PTT, CMP, MG1 ####[facility] [address] [place] [phone] Urea nitrogen 43 mg/dL High 8-25 [facility] Comment on above: Performed By: #### C BCDIF, PT, PTT, CMP, MG1 ####[facility] [address] [place] [phone] PROGRESSon 12-26-2016 PROGRESS HNO ID: [id number] thor: Janelle Hopkins: General Internal MedicineAuthor Type: [...] rate 18, height 157.5 cm (5' 2), rvembp895.8 kg (228 lb 13.4 oz), SpO2 97 [...] PATIENT NAME: Laura Stark PAGER/CONTACT #: Normal [facility] CBCon 12-25-2016 Erythrocyte distribution width Auto Ratio (RBC) 16.7 % High 11.5-15.0 [facility] Comment on above: Performed By: #### C BCDIF, PT, PTT, CMP, MG1 ####[place] [address] Erythrocytes (RBC) 4.51 10*6/uL Normal 3.90-5.20 [facility] Comment on above: Performed By: #### C BCDIF, PT, PTT, CMP, MG1 ####[place] [address] Hematocrit (HCT) 38.4 % Normal 36.0-46.0 [facility] Comment on above: Performed By: #### C BCDIF, PT, PTT, CMP, MG1 ####[place] [address] Hemoglobin mass conc (Bld) 12.4 g/dL Normal 11.5-15.5 [facility] Comment on above: Performed By: #### C BCDIF, PT, PTT, CMP, MG1 ####[place] [address] MCH 27.5 pG Normal 26.0-34.0 [facility] Comment on above: Performed By: #### C BCDIF, PT, PTT, CMP, MG1 ####[place] [address] MCHC mass conc (RBC) 32.3 g/dL Normal 30.5-36.0 [facility] Comment on above: Performed By: #### C BCDIF, PT, PTT, CMP, MG1 ####[place] [address] MCV 85.1 fL Normal 80.0-100.0 [facility] Comment on above: Performed By: #### C BCDIF, PT, PTT, CMP, MG1 ####[place] [address] Platelet mean volume (PMV) 10.5 fL Normal 9.0-12.7 [facility] Comment on above: Performed By: #### C BCDIF, PT, PTT, CMP, MG1 ####[place] [address] Platelets 212 10*3/uL Normal 150-400 [facility] Comment on above: Performed By: #### C BCDIF, PT, PTT, CMP, MG1 ####[facility] [address] [place] [phone] WBC (Leukocytes) 13.16 10*3/uL High 3.70-11.00 [facility] Comment on above: Performed By: #### C BCDIF, PT, PTT, CMP, MG1 ####[facility] [address] [place] [phone] CONSULT PROGon 12-25-2016 CONSULT PROG HNO ID: [id number] thor: Nixon Menjivar: Clinical CardiologyAuthor Type: PhysicianType: Consult Progress NoteFiled: 12/25/2016 3:43 PMNote Text:PROGRESS NOTE CARDIOLOGY SERVICESERVICE DATE: 12/25/2016SERVICE TIME: 3:36 PMSUBJECTIVEINTERIM HISTORY: her breathing is feeling a little betterCARDIAC STATUS:she has been having more afib recentlyOBJECTIVEPHYSICAL EXAM:Body mass index is 42.36 kg/(m2).O2 Therapy: Room AirNo Data RecordedPatient Vitals for the past 24 hrs: BP Temp Temp src Pulse Resp SpO2 Pyvidx09/11/17 1505 121/65 36.9 ?C (98.4 ?F) Oral [...] - - (!) 54 20 95 % -12/24/16 2014 127/63 36.6 ?C (97.9 [...] bowel sounds present.EXTREMITIES: No edema.PULSES: Peripheral pulses present.MEDICATIONS:[facility] medications:psyllium Husk 1.56 g cap(s) 1.56 [...] imagingMost recent EKGPast 72 Hour Labs:Recent Labs 556265PMM 13.16*RBC 4.51HB 12.4HCT 38.4MCV 85.1MCH 27.5MCHC 32.3RDWCV 16.7*PLT 212MPV 10.5GLUC 158*BUN 51*CREAT 1.41*NA 132K 3.5CHLOR 90*CO2 26TPROT 5.9*ALB 3.3*CA 9.0ALKPHOS 74TBILI 0.8AST 28ALT 56*Last Lab Drawn:TSH 0.242 12/18/2016ASSESSMENT/PLAN1. Persistent afib and atrial flutter with intermittent RVR2. Acute asthma exacerbation3. Hyperthyroidism4. CKD5. [facility] has recent echo showing normal LV systolic function and normal nuclearstress testing at [facility] has intermittent periods of tachycardia where her rate is not wellcontrolledPlan:Start flecainide 100 mg BIDStop digoxinincrease diltiazem to 300 mg dailyContinue methimazoleWill follow up tomorrowSIGNATURE: Nixon Burton MD PATIENT NAME: Laura StarkDATE: December 25, 2016 : 3:36 PM PAGER/CONTACT #: [phone] [facility] CONSULT PROG HNO ID: [id number] thor: Fern Gonzales: Pulmonary DiseaseAuthor Type: PhysicianType: Consult Progress NoteFiled: 12/25/2016 12:00 PMNote Text: RESPIRATORY INSTITUTEPULMONARY MEDICINEIN-PATIENT CONSULT PROGRESS NOTESERVICE DATE: 12/25/2016ASSESSMENT:Asthm a with acute exacerbationBilateral atelectasisRecent sputum (+) E coli and MRSA ([facility] - 12/06/16)Paroxysmal atrial fibrillation with RVR-now [...] results, microbiology and pathology data.Virgen Kowalski, Respiratory InstituteSelect Medical Specialty Hospital - YoungstownPager #[id number] COMPLAINT: Shortness of breathINTERVAL HPI:Laura Stark is a 61 year old female status sinceprevious days visit is about the same. No fevers, chills, night sweats,chest pain, SOB, abd pain or leg swelling. No events over night. Peak rton974 ml today. No on supplemental oxygen.MEDICATIONS:Current Facility-Administered [...] BP Temp Temp src Pulse Resp SpO2 Wwyslq27/11/17 1155 105/70 37.1 ?C (98.8 ?F) Oral [...] recent labsCBC, Coags, BMP, Mg, PhosRecent Labs 12/25/1707WBC 13.16* [...] 25, 2016 : 11:55 AM PAGER/CONTACT #: [id number] [facility] CONSULT PROG HNO ID: [id number] thor: Toma GoldbergbService: GastroenterologyAuthor Type: PhysicianType: Consult Progress NoteFiled: 12/25/2016 11:35 AMNote Text:GASTROENTEROLOGY CONSULT PROGRESS NOTEPatient Name: Laura StarkMRN: [id number] DATE: December 25, 2016SERVICE TIME: 10:25 AMASSESSMENT1. Rectal bleeding - suspect hemorrhoidal in the context of constipation2. Fecal leakage with constipation3. GERD4. Asthma exacerbation / PNA (MRSA and E.coli)5. New pAFIB (Eliquis) / Hyperthyroidism??PLAN- Continue Hemorrhoidal HC 25 mg NC twice daily- Will discontinue Miralax and use [...] BP Temp Temp src Pulse Resp SpO2 Zqwwzb11/11/17 0757 120/62 36.3 ?C (97.4 ?F) Oral 84 20 99 % -12/25/16 0331 140/73 36.5 ?C (97.7 ?F) Oral 79 19 99 % -12/24/16 2345 129/78 36.4 ?C (97.5 ?F) Oral 77 19 100 % -12/24/162013 127/63 36.6 ?C (97.9 ?F) Oral (!) 52 19 95 % -12/24/16 1936 - - - 114 - - -12/24/16 1653 116/56 37 ?C (98.6 ?F) Oral (!) 52 18 95 % -GENERAL: Alert AND oriented x 3. Cooperative. NADEYES: No scleral icterusSKIN: [place] in color. No jaundiceLUNGS: Expiratory wheezing bilateral [...] Good bowel prepSIGNATURE: Vivian Martínez, CNSDATE: December 25, 2016TIME: 10:25 AM Normal [facility] CONSULT PROG HNO ID: [id number] thor: PARVIN Roldanervice: Infectious DiseaseAuthor Type: PhysicianType: [...] t zosynCall micro for MICs for the PsAGCheck PCTReviewed and discussed CXRVEST therapySupportive careWean B5Nrjjowdoav careMEDICATIONS: reviewed.Current hospital medications:piperacillin-t azobactam 3.375 g [...] -- 1.41*Microbiology data: reviewedImaging data: Du Mcginnis [phone]/12/20168: 46 AM Normal [facility] Comp Metabolic Panelon 12-25 Alanine aminotransferase (ALT) 56 U/L High 0-45 [facility] Comment on above: Performed By: #### C BCDIF, PT, PTT, CMP, MG1 ####[facility] [address] [place] [address] Albumin 3.3 g/dL Low 3.5-5.0 [facility] Comment on above: Performed By: #### C BCDIF, PT, PTT, CMP, MG1 ####[facility] [address] [place] [address] Alkaline phosphatase (ALP) 74 U/L Normal 40-150 [facility] Comment on above: Performed By: #### C BCDIF, PT, PTT, CMP, MG1 ####[facility] [address] [place] [address] Anion gap 16 mmol/L High 0-15 [facility] Comment on above: Performed By: #### C BCDIF, PT, PTT, CMP, MG1 ####[facility] [address] [place] [address] Aspartate aminotransferase (AST) 28 U/L Normal 7-40 [facility] Comment on above: Performed By: #### C BCDIF, PT, PTT, CMP, MG1 ####[facility] [address] [place] [address] Bilirubin (total) 0.8 mg/dL Normal 0.0-1.5 [facility] Comment on above: Performed By: #### C BCDIF, PT, PTT, CMP, MG1 ####[facility] [address] [place] [address] Calcium 9.0 mg/dL Normal 8.5-10.5 [facility] Comment on above: Performed By: #### C BCDIF, PT, PTT, CMP, MG1 ####[facility] [address] [place] [address] Chloride 90 mmol/L Low 98-110 [facility] Comment on above: Performed By: #### C BCDIF, PT, PTT, CMP, MG1 ####[facility] Fibdrrytfi[address] [place] [address] CO2 26 mmol/L Normal 23-32 [facility] Comment on above: Performed By: #### C BCDIF, PT, PTT, CMP, MG1 ####[facility] [address] [place] [address] Creatinine 1.41 mg/dL High 0.70-1.40 [facility] Comment on above: Performed By: #### C BCDIF, PT, PTT, CMP, MG1 ####[facility] [address]ro[address]20 [place] [address] eGFR (non-black) 46 mL/min/{1.73_m2} Normal [facility] Comment on above: Performed By: #### C BCDIF, PT, PTT, CMP, MG1 ####[facility] Pteimltlsx0628 [place] [address] eGFR (non-black) 38 . Normal [facility] Comment on above: Result Comment: eGFR (Estimated [...] #### C BCDIF, PT, PTT, CMP, MG1 ####[facility] [address] [place] [address] Glucose mass conc 158 mg/dL High 65-100 [facility] Comment on above: Performed By: #### C BCDIF, PT, PTT, CMP, MG1 ####[facility] Qhcqyanyij4547 [place] [address] Potassium molar conc 3.5 mmol/L Normal 3.5-5.0 [facility] Comment on above: Performed By: #### C BCDIF, PT, PTT, CMP, MG1 ####[facility] Q[address]fbfkkha[address]605 [place] [address] Protein 5.9 g/dL Low 6.0-8.4 [facility] Comment on above: Performed By: #### C BCDIF, PT, PTT, CMP, MG1 ####[facility] [address]eg[address] Sodium 132 mmol/L Normal 132-148 [facility] Comment on above: Performed By: #### C BCDIF, PT, PTT, CMP, MG1 ####[facility] [address]ht[address]vkh[address] Urea nitrogen 51 mg/dL High 8-25 [facility] Comment on above: Performed By: #### C BCDIF, PT, PTT, CMP, MG1 ####[facility] [address]jrvxkhwe[address]44 [address] PROGRESSon 12-25-2016 PROGRESS HNO ID: [id number] thor: Janelle Hopkins: General Internal MedicineAuthor Type: [...] rate 18, height 157.5 cm (5' 2), kaaadb440.1 kg (231 lb 9.6 oz), SpO2 98 [...] PATIENT NAME: Laura Stark PAGER/CONTACT #: Normal [facility] CBCon 12-24-2016 Erythrocyte distribution width Auto Ratio (RBC) 16.7 % High 11.5-15.0 [facility] Comment on above: Performed By: #### C BCDIF, PT, PTT, CMP, MG1 ####[facility] Jkphsfzmqv4461 [phone] Erythrocytes (RBC) 4.39 10*6/uL Normal 3.90-5.20 [facility] Comment on above: Performed By: #### C BCDIF, PT, PTT, CMP, MG1 ####[facility] Kmjwuxqkqm2967 [phone] Hematocrit (HCT) 37.2 % Normal 36.0-46.0 [facility] Comment on above: Performed By: #### C BCDIF, PT, PTT, CMP, MG1 ####[facility] [address]ia[address] [place] [address] Hemoglobin mass conc (Bld) 12.0 g/dL Normal 11.5-15.5 [facility] Comment on above: Performed By: #### C BCDIF, PT, PTT, CMP, MG1 ####[facility] Q[address]rxrzg[address]75 [place] [address] MCH 27.3 pG Normal 26.0-34.0 [facility] Comment on above: Performed By: #### C BCDIF, PT, PTT, CMP, MG1 ####[facility] [address] [place] [address] MCHC mass conc (RBC) 32.3 g/dL Normal 30.5-36.0 [facility] Comment on above: Performed By: #### C BCDIF, PT, PTT, CMP, MG1 ####[facility] [address] [place] [address] MCV 84.7 fL Normal 80.0-100.0 [facility] Comment on above: Performed By: #### C BCDIF, PT, PTT, CMP, MG1 ####[facility] [address] [place] [address] Platelet mean volume (PMV) 10.1 fL Normal 9.0-12.7 [facility] Comment on above: Performed By: #### C BCDIF, PT, PTT, CMP, MG1 ####[facility] [address] [place] [address] Platelets 206 10*3/uL Normal 150-400 [facility] Comment on above: Performed By: #### C BCDIF, PT, PTT, CMP, MG1 ####[facility] [address]jhqw[address] [place] [address] WBC (Leukocytes) 11.95 10*3/uL High 3.70-11.00 [facility] Comment on above: Performed By: #### C BCDIF, PT, PTT, CMP, MG1 ####[facility] [address] [place] [address] CONSULT PROGon 12-24-2016 CONSULT PROG HNO ID: [id number] thor: Toma Garciaervice: GastroenterologyAuthor Type: PhysicianType: Consult Progress NoteFiled: 12/24/2016 1:44 PMNote Text:GASTROENTEROLOGY CONSULT PROGRESS NOTEPatient Name: Laura StarkMRN: [id number] DATE: December 24, 2016SERVICE TIME: 12:28 PMASSESSMENT1. Rectal bleeding - suspect hemorrhoidal in the context of constipation2. Fecal leakage with constipation3. GERD4. Asthma exacerbation / PNA (MRSA and E.coli)5. New pAFIB / Hyperthyroidism?PLAN- Continue Hemorrhoidal HC 25 mg NC twice daily- Continue Miralax 17 g twice [...] bleeding. H/H normal.Continue conservative tx.Toma Funk MDNovember 20161:43 PM INTE RVAL HPI: She continues to have frequent fecal leakage. Fecalincontinence was precipitated by episodes of diarrhea after laxativeadministration for constipation. No further rectal bleeding. Deniesabdominal pain. No melena. Had some nausea today without vomiting. KUBfrom yesterday without evidence of fecal impaction or retained stool tosuggest overflow diarrhea.PHYSICAL EXAM:Patient Vitals for the past 24 hrs: BP Temp Temp src Pulse Resp QqD32912/24/16 1144 (!) 133/32 36.9 ?C (98.4 ?F) [...] x 3. Cooperative. NADEYES: No scleral icterusSKIN: [place] in color. No jaundiceLUNGS: Expiratory wheezing bilateral [...] DIRECTED PRNLABS:CBC, Coags, BMP, Mg, PhosRecent Labs 12/23/1708428WBC 11.95* 16.49* -- --HB 12.0 [...] 15 15ALKPHOS 71 71 78TBILI 0.8 0.6 [address].1UYJVGMJHZ71/1/17 CT ChestIMPRESSION:1. ? Mild atelectasis within bilateral lungs. Otherwise, no acuteabnormality.2. Ovoid area of fat attenuation interposed between right and left atriaconsistent with lipomatous hypertrophy of interatrial septum.12/23/16 KUBNegative. No retained stool is seen to suggest constipation.MOST RECENT EGDRemote: hx gastritis at that time?MOST RECENT COLONOSCOPY: 01/09/2013. (MD Teja Whiting [place]).Screening1. The perianal and digital rectal examinations were normal.2. The colon (entire examined portion) was moderately tortuous.3. The exam was otherwise without abnormality.4. Good bowel prepSIGNATURE: Vivian Martínez, CNSDATE: December 24, 2016TIME: 12:28 PM Normal [facility] CONSULT PROG HNO ID: [id number] thor: Maged Mcginnis MDService: Infectious DiseaseAuthor Type: PhysicianType: Consult Progress NoteFiled: [...] [place] PsAG in sputumButto woundAcute respiratory failureFailed OP PO abx treatment w doxyWeaknessObesity, Class III, BMI >= 40Malnutrition of moderate degreeRECOMMENDATIONS:Star t zosynCall micro for MICs for the [facility] PCTReviewed and discussed CXRVEST therapySupportive careWean A5Tedytejhvd careMEDICATIONS: reviewed.Current hospital medications:hydrocortisone 25 mg suppository [...] reviewedImaging data: Du Mcginnis [id number]/24/201610 :55 AM [facility] CONSULT PROG HNO ID: [id number] thor: Jaya Darby RaiService: Pulmonary DiseaseAuthor Type: PhysicianType: Consult Progress NoteFiled: 12/24/2016 2:02 PMNote Text: RESPIRATORY INSTITUTEPULMONARY MEDICINEIN-PATIENT CONSULT PROGRESS NOTESERVICE DATE: 12/24/2016ASSESSMENT:Asthm a with acute exacerbationBilateral atelectasisRecent sputum (+) E coli and MRSA ([facility] - 12/06/16)Paroxysmal atrial fibrillation with RVRRemote [...] microbiology and pathology data.Virgen Voss Rai, Respiratory InstituteSelect Medical Specialty Hospital - YoungstownPager #[id number] COMPLAINT: Shortness of breathINTERVAL HPI:Laura Stark is [...] hrs: BP Temp Temp src Pulse Resp EdP53912/24/16 0844 137/64 37 ?C (98.6 ?F) Oral [...] 24, 2016 : 9:40 AM PAGER/CONTACT #: [phone] Normal [facility] Comp Metabolic Panelon 12-24 Alanine aminotransferase (ALT) 45 U/L Normal 0-45 [facility] Comment on above: Performed By: #### C BCDIF, PT, PTT, CMP, MG1 ####[facility] [address] [place] [address] Albumin 3.4 g/dL Low 3.5-5.0 [facility] Comment on above: Performed By: #### C BCDIF, PT, PTT, CMP, MG1 ####[facility] [address] [place] [address] Alkaline phosphatase (ALP) 71 U/L Normal 40-150 [facility] Comment on above: Performed By: #### C BCDIF, PT, PTT, CMP, MG1 ####[facility] [address] [place] [address] Anion gap 14 mmol/L Normal 0-15 [facility] Comment on above: Performed By: #### C BCDIF, PT, PTT, CMP, MG1 ####[facility] [address] [place] [address] Aspartate aminotransferase (AST) 17 U/L Normal 7-40 [facility] Comment on above: Performed By: #### C BCDIF, PT, PTT, CMP, MG1 ####[facility] [address] [place] [address] Bilirubin (total) 0.8 mg/dL Normal 0.0-1.5 [facility] Comment on above: Performed By: #### C BCDIF, PT, PTT, CMP, MG1 ####[facility] [address] [place] [address] Calcium 8.9 mg/dL Normal 8.5-10.5 [facility] Comment on above: Performed By: #### C BCDIF, PT, PTT, CMP, MG1 ####[facility] [address] [place] [address] Chloride 89 mmol/L Low 98-110 [facility] Comment on above: Performed By: #### C BCDIF, PT, PTT, CMP, MG1 ####[facility] [address] [place], [place] [address] CO2 26 mmol/L Normal 23-32 [facility] Comment on above: Performed By: #### C BCDIF, PT, PTT, CMP, MG1 ####[facility] [address] [place] [address] Creatinine 1.20 mg/dL Normal 0.70-1.40 [facility] Comment on above: Performed By: #### C BCDIF, PT, PTT, CMP, MG1 ####[facility] [address] [place] [address] eGFR (non-black) 55 mL/min/{1.73_m2} Normal [facility] Comment on above: Performed By: #### C BCDIF, PT, PTT, CMP, MG1 ####[facility] [address] [place] [address] eGFR (non-black) 46 . Normal [facility] Comment on above: Result Comment: eGFR (Estimated [...] #### C BCDIF, PT, PTT, CMP, MG1 ####[facility] [address] [place] [address] Glucose mass conc 197 mg/dL High 65-100 [facility] Comment on above: Performed By: #### C BCDIF, PT, PTT, CMP, MG1 ####[facility] [address] [place] [address] Potassium molar conc 3.6 mmol/L Normal 3.5-5.0 [facility] Comment on above: Performed By: #### C BCDIF, PT, PTT, CMP, MG1 ####[facility] [address] [place] [address] Protein 5.9 g/dL Low 6.0-8.4 [facility] Comment on above: Performed By: #### C BCDIF, PT, PTT, CMP, MG1 ####[facility] [address]sw[address] Sodium 129 mmol/L Low 132-148 [facility] Comment on above: Performed By: #### C BCDIF, PT, PTT, CMP, MG1 ####[facility] [address] [place] [id number] Urea nitrogen 47 mg/dL High 8-25 [facility] Comment on above: Performed By: #### C BCDIF, PT, PTT, CMP, MG1 ####[facility] [address]ff[address]rnt6046 [address] NURSING PROGon 12-24-2016 NURSING PROG HNO ID: [id number] thor: Ayana (Rn) LEVI Bryantervice: (none)Author Type: Registered NurseType: Nursing Progress NoteFiled: 12/24/2016 7:38 PMNote Text: Nursing Progress NotePatient Name: Laura StarkMRN: [id number] Location: [place] [id number]___ Daily Note: 0810: AM labs drawn at [...] sample.1400: Dr. Nugent aware of AM sodium level.1845: Patient remains in A fib with heart rate now ranging from 112-120's.Patient SOB on exertion to bathroom and feeling wheezy. IV antibioticcompleted at this time. Page to Dr. Burton.1935: PO diltiazem administered per orders. HR 114 at this time. Patientdenies chest pressure. Non-productive cough present.This note was completed by: Ayana Bryant RN [facility] PROGRESSon 12-24-2016 PROGRESS HNO ID: [id number] thor: Ronny WashingtonpuService: Cardiovascular DiseaseAuthor Type: PhysicianType: Progress NotesFiled: 12/24/2016 4:23 PMNote Text:INPATIENT CONSULT PROGRESS NOTESPatient Name: Laura StarkMRN: [id number] of SERVICE: 12/24/2016TIME of SERVICE: 4:17 PMCONSULTING [...] rate 20, height 157.5 cm (5' 2), trtytr801.8 kg (237 lb 10.5 oz), SpO2 96 [...] in the last24 hours.SIGNATURE: BECKY Fountain; [phone]: December 24, 2016TIME: 4:17 PM Normal [facility] PROGRESS HNO ID: [id number] thor: Kiara Fleming: General Internal MedicineAuthor Type: [...] rate 18, height 157.5 cm (5' 2), kuxgoe213.7 kg (226 lb 6.4 oz), SpO2 95 [...] PATIENT NAME: Laura Stark PAGER/CONTACT #: Normal [facility] Procalcitoninon 12-24-2016 Procalcitonin 0.14 ng/mL High <0.09 [facility] Comment on above: Result Comment: For a guided interpretation of test results, please visit the Change in Procalcitonin Calculator, [email or web address]. Performed By: #### C BCDIF, PT, PTT, CMP, MG1 ####[place] [address] CBCon 12-23-2016 Erythrocyte distribution width Auto Ratio (RBC) 17.0 % High 11.5-15.0 [facility] Comment on above: Performed By: #### C BCDIF, PT, PTT, CMP, MG1 ####[place] [address] Erythrocytes (RBC) 4.59 10*6/uL Normal 3.90-5.20 [facility] Comment on above: Performed By: #### C BCDIF, PT, PTT, CMP, MG1 ####[place] [address] Hematocrit (HCT) 39.2 % Normal 36.0-46.0 [facility] Comment on above: Performed By: #### C BCDIF, PT, PTT, CMP, MG1 ####[place] [address] Hemoglobin mass conc (Bld) 12.7 g/dL Normal 11.5-15.5 [facility] Comment on above: Performed By: #### C BCDIF, PT, PTT, CMP, MG1 ####[place] [address] MCH 27.7 pG Normal 26.0-34.0 [facility] Comment on above: Performed By: #### C BCDIF, PT, PTT, CMP, MG1 ####[place] [address] MCHC mass conc (RBC) 32.4 g/dL Normal 30.5-36.0 [facility] Comment on above: Performed By: #### C BCDIF, PT, PTT, CMP, MG1 ####[place] [address] MCV 85.4 fL Normal 80.0-100.0 [facility] Comment on above: Performed By: #### C BCDIF, PT, PTT, CMP, MG1 ####[place] [id number] Platelet mean volume (PMV) 10.3 fL Normal 9.0-12.7 [facility] Comment on above: Performed By: #### C BCDIF, PT, PTT, CMP, MG1 ####[facility] Cynyh[address]fgj[address]7 [address] Platelets 236 10*3/uL Normal 150-400 [facility] Comment on above: Performed By: #### C BCDIF, PT, PTT, CMP, MG1 ####[facility] [address] [place] [id number] WBC (Leukocytes) 16.49 10*3/uL High 3.70-11.00 [facility] Comment on above: Performed By: #### C BCDIF, PT, PTT, CMP, MG1 ####[facility] [address] [place] [address] CONSULTon 12-23-2016 CONSULT HNO ID: [id number] thor: Ottoniel Chong: GastroenterologyAuthor Type: PhysicianType: ConsultsFiled: 12/23/2016 4:46 PMNote Text:GASTROENTEROLOGY CONSULT NOTEPATIENT NAME: Laura StarkMRN: [id number] DATE: December 23, 2016SERVICE TIME: 10:59 AMPRIENCOMPASS [facility] PHYSICIAN: GAVI Oseguera PHYSICIAN: JESICA ReyezEASON FOR ADMISSION: Asthma exacerbationREASON FOR CONSULTATION: Bloody diarrheaHPI: This is a 61 year old female with a past medical history significantfor DVT, PE, asthma, HTN, morbid obesity who presented on 12/15/16 withdyspnea, fever, cough and felt to have acute asthma exacerbation. [facility] for E.coli and [...] (ASPIRIN, ENTERIC COATED) 325 mg EC tablet Dddx355 mg by mouth once daily. Disp: Rfl: [...] (FLONASE) 50 mcg/actuation nasal spray Use 1 [place] in eachnostril twice daily. Disp: Rfl: 12/15/2016 [...] x 3. Cooperative. NADEYES: No scleral icterusSKIN: [place] in color. No jaundiceLUNGS: Expiratory wheezing bilateral [...] 15 13ALKPHOS 71 78 70TBILI 0.6 0.[address]19/1/17 [address] ChestIMPRESSION:1. ? Mild atelectasis within bilateral lungs. Otherwise, no acuteabnormality.2. Ovoid area of fat attenuation interposed between right and left atriaconsistent with lipomatous hypertrophy of interatrial septum.MOST RECENT EGDRemote: hx gastritis at that timeMOST RECENT COLONOSCOPY: 01/09/2013. (Peter Lerma MD - [place]).Screening1. The perianal and digital rectal examinations were normal.2. The colon (entire examined portion) was moderately tortuous.3. The exam was otherwise without abnormality.4. Good bowel prepASSESSMENT1. Rectal bleeding - suspect hemorrhoidal in the context of constipation2. Fecal leakage with constipation - possibly overflow diarrhea. Doubtthis is a C.diff infection3. GERD4. Asthma exacerbation / recent PNA5. New pAFIB / HyperthyroidismPLAN- Initiate Hemorrhoidal HC 25 mg NC twice daily- Obtain 2-view abdomen to r/o [...] endoscopic evaluation until safe forsedation.Monitor for gi bleed.Laci Lopezember 20164:45 PM Normal [facility] CONSULT PROGon 12-23-2016 CONSULT PROG HNO ID: [id number] thor: PARVIN Pinaervice: EndocrinologyAuthor Type: PhysicianType: Consult Progress NoteFiled: 12/23/2016 4:49 PMNote Text:Endocrinology Progress NoteIMPRESSION: Steroid-induced hyperglycemia - likely a harbinger ofunderlying Type 2 diabetes mellitusHyperthyroidism - mild, on methimazole. Must have TFTs rechecked in 7-10days, for potential dose adjustment (OK to fax results to [phone] forinterpretation).PLAN: Increased NPH insulin to 11 units BID, added set doses of Humalog atmeals 4 unitsDiscontinue sliding scaleCheck glucose ac and 2 hours pcCall covering flare man if glucose is less than 80 mg/dL [...] (226 lb 6.4 oz) SpO2 95% BMI41.41 kg/m9Psvvfjt appearance: Well-appearing, morbidly obese (BMI greater than [...] Other Races Latest Units: . 38Johnny Culver [facility] 20164:42 PM Normal [facility] CONSULT PROG HNO ID: [id number] thor: PARVIN Roldanervice: Infectious DiseaseAuthor Type: PhysicianType: [...] and E coli HCAP. [facility] woundAcute respiratory failureFailed OP PO abx treatment w doxyWeaknessObesity, Class III, BMI >= 40Malnutrition of moderate degreeRECOMMENDATIONS:Cont inue off abxFollow Sputum cxReviewed and discussed CXRVEST therapySupportive careWean U8Ixmdruxaic careMEDICATIONS: reviewed.Current hospital medications:insulin NPH human 9 [...] data: Du Mcginnis [id number]:0 6 AM Normal [facility] CONSULT PROG HNO ID: [id number] thor: Jaya Darby RaiService: Pulmonary DiseaseAuthor Type: PhysicianType: Consult Progress NoteFiled: 12/23/2016 4:30 PMNote Text: RESPIRATORY INSTITUTEPULMONARY MEDICINEIN-PATIENT CONSULT PROGRESS NOTESERVICE DATE: 12/23/2016ASSESSMENT:Asthma with acute exacerbationBilateral atelectasisRecent sputum (+) E coli and MRSA ([facility] - 12/06/16)Paroxysmal atrial fibrillation with RVRRemote [...] microbiology and pathology data.Virgen Voss Rai, Respiratory InstituteSelect Medical Specialty Hospital - YoungstownPager #[id number] COMPLAINT: Shortness of breath, wheezingINTERVAL HPI:Laura Stark [...] BP Temp Temp src Pulse Resp SpO2 Yyohhr91/09/17 1621 - - - 80 18 95 [...] (98.7 ?F) Axillary 92 20 96 % -12/22/161954 - - - 80 16 - -12/22/16 [...] 9.4 5.3*Liver Function, Amylase, AND LipaseRecent Labs 428 [id number] 6.1 6.3 6.2ALB 3.5 3.7 3.6ALT 44 44 39AST 15 15 13ALKPHOS 71 78 70TBILI 0.6 0.5 0.5Cardiac EnzymesABGsSIGNATURE: Jaya Darby Rai, MD PATIENT NAME: Laura StarkDATE: December 23, 2016 : 4:27 PM PAGER/CONTACT #: [phone] Normal [facility] Comp Metabolic Panelon 12-23 Alanine aminotransferase (ALT) 44 U/L Normal 0-45 [facility] Comment on above: Performed By: #### C BCDIF, PT, PTT, CMP, MG1 ####[facility] [address] [place] [address] Albumin 3.5 g/dL Normal 3.5-5.0 [facility] Comment on above: Performed By: #### C BCDIF, PT, PTT, CMP, MG1 ####[facility] [address] [place] [address] Alkaline phosphatase (ALP) 71 U/L Normal 40-150 [facility] Comment on above: Performed By: #### C BCDIF, PT, PTT, CMP, MG1 ####[facility] [address] [place] [address] Anion gap 18 mmol/L High 0-15 [facility] Comment on above: Performed By: #### C BCDIF, PT, PTT, CMP, MG1 ####[facility] [address] [place] [address] Aspartate aminotransferase (AST) 15 U/L Normal 7-40 [facility] Comment on above: Performed By: #### C BCDIF, PT, PTT, CMP, MG1 ####[facility] [address] [place] [address] Bilirubin (total) 0.6 mg/dL Normal 0.0-1.5 [facility] Comment on above: Performed By: #### C BCDIF, PT, PTT, CMP, MG1 ####[facility] [address] [place] [address] Calcium 9.1 mg/dL Normal 8.5-10.5 [facility] Comment on above: Performed By: #### C BCDIF, PT, PTT, CMP, MG1 ####[facility] [address] [place] [address] Chloride 88 mmol/L Low 98-110 [facility] Comment on above: Performed By: #### C BCDIF, PT, PTT, CMP, MG1 ####[facility] [address] [place] [address] CO2 24 mmol/L Normal 23-32 [facility] Comment on above: Performed By: #### C BCDIF, PT, PTT, CMP, MG1 ####[facility] [address] [place] [address] Creatinine 1.41 mg/dL High 0.70-1.40 [facility] Comment on above: Performed By: #### C BCDIF, PT, PTT, CMP, MG1 ####[facility] [address] [place] [address] eGFR (non-black) 46 mL/min/{1.73_m2} Normal [facility] Comment on above: Performed By: #### C BCDIF, PT, PTT, CMP, MG1 ####[facility] [address] [place] [address] eGFR (non-black) 38 . Normal [facility] Comment on above: Result Comment: eGFR (Estimated [...] #### C BCDIF, PT, PTT, CMP, MG1 ####[facility] [address] [place] [address] Glucose mass conc 221 mg/dL High 65-100 [facility] Comment on above: Performed By: #### C BCDIF, PT, PTT, CMP, MG1 ####[facility] Ptelizaijo6845 [address] Potassium molar conc 4.0 mmol/L Normal 3.5-5.0 [facility] Comment on above: Performed By: #### C BCDIF, PT, PTT, CMP, MG1 ####[facility] Negidchgjm5039 [address] Protein 6.1 g/dL Normal 6.0-8.4 [facility] Comment on above: Performed By: #### C BCDIF, PT, PTT, CMP, MG1 ####[facility] [address]flc[address] [place] [address] Sodium 130 mmol/L Low 132-148 [facility] Comment on above: Performed By: #### C BCDIF, PT, PTT, CMP, MG1 ####[facility] [address] [place] [id number] Urea nitrogen 52 mg/dL High 8-25 [facility] Comment on above: Performed By: #### C BCDIF, PT, PTT, CMP, MG1 ####[facility] [address]wyn[address]pxdo1879 [address] NURSING PROGon 12-23-2016 NURSING PROG HNO ID: [id number] thor: Juli (Rn) Scooby, RNService: (none)Author Type: Registered NurseType: Nursing Progress NoteFiled: 12/23/2016 12:26 PMNote Text: Nursing Progress NotePatient Name: Laura StarkMRN: [id number] Location: [place] [address] [address]___ Daily Note:0753: Dr. Nugent is aware that the patient is complaining of bloodydiarrhea. Will place new orders.0800: Assumed care of the patient at 0700. Vital signs are stable.Patient is alert and oriented times three. Heart is regular. Lungs haverhonci. Patient is complaining of a productive cough with yellow sputum.Patient has a alarm security or surveillance monitor on. Patient has +1 bilateral lowerextremity edema. Call melgar is within reach. Will continue to monitor thepatient.09: Collected a CBC from the patient's CIPRIANO PICC line. Patienttolerated the procedure well. CBC was sent to lab.This note was completed by: Juli Almodovar RN [facility] NUTRITIONon 12-23-2016 NUTRITION HNO ID: [id number] thor: Lamar (Mariusz) FerroService: Nutrition TherapyAuthor Type: Registered DietitianType: NutritionFiled: 12/23/2016 2:21 PMNote Text:NUTRITION THERAPY REASSESSMENTSERVICE DATE: 12/23/2016SERVICE TIME: 834RECOMMENDED MALNUTRITION DIAGNOSIS: MODERATE PROTEIN-CALORIE MALNUTRITIONIn the context [...] was weighting this at the beginning of Wt102/23/16 : 102.7 kg (226 lb 6.4 oz)04/12/16 : 115.2 kg (254 lb)10/04/15 : 113.4 kg (250 lb)02/23/15 : 116.1 kg (256 lb)11/03/14 : 111.1 kg (245 lb)04/02/13 : 96.6 kg (213 lb)02/15/13 : 96.6 kg (213 lb)05/03/12 : 100.7 kg (222 lb)04/28/12 : 99.3 kg (219 lb)02/16/12 : 111.1 kg (245 lb)Dosing Weight: 102.7 kgResting Metabolic Rate: 1544Estimated kilocalorie needs: 8916-9026 kilocalories determined by 10-15kcal/kgEstimated protein needs: 54-80 grams determined by 20% of estimatedkilocalorie needs dosing weightEstimated fluid needs: 6336-6065 milliliters based on 1 mL per kcalNUTRITION [...] lb 6.4 oz) SpO2 97% BMI 41.41 kg/s2Gkojai Labs 977462QTYT -- 221*BUN -- 52*CREAT -- 1.41*NA -- 130*K -- 4.0CHLOR -- 88*CO2 -- 24ALB -- 3.5HB 12.7 --HCT 39.2 --WBC 16.49* --Potential Signs of Inflammation: leukocytosis and hyperglycemiaMNT Billing Type: Re-assess/15 min 3 unitsSIGNATURE: Lamar Kaplan RD PATIENT NAME: Laura StarkDATE: December 23, 2016 : 2:17 PM [facility] PLAN OF CAREon 12-23-2016 PLAN OF CARE HNO ID: [id number] thor: Natasha Enciso (Rn) LEVI Hitchcockervice: Case [...] E66.01Malnutrition of Moderate Degree (Hcc)Attendees Present at Rounds:Corrugator Supervisor: NatashaPatient: Laura Reyes Araceli Nurse: Juli Andrade Discussed on Rounds:Plan of CareAnticipated Discharge Disposition:Custodial FacilityLast Vitals: BP 136/64 Pulse 82 Temp (Src) 98.1 (Oral) Resp 18 Ht5' 2 (1.58m) Wt 226 lb 6.4 oz (102.7kg) SpO2 95% BMI 41.40kg/(m2).Facility Has Auth to accept Patient today. [facility]. DrGoyal informed.New problem today bloody [...] December 23, 2016 : 3:46 PM CSN: [id number] [facility] PROGRESSon 12-23-2016 PROGRESS HNO ID: [id number] thor: Kiara Fleming: General Internal MedicineAuthor Type: [...] rate 18, height 157.5 cm (5' 2), ujcsbb862.7 kg (226 lb 6.4 oz), SpO2 97 [...] MD PATIENT NAME: Laura Stark PAGER/CONTACT #: [facility] THERAPY NTon 12-23-2016 THERAPY NT HNO ID: [id number] thor: Juli (Pt) KapteinService: Physical TherapyAuthor Type: Physical TherapistType: Therapy (PT/OT/Speech/Resp)Filed: 12/23/2016 3:20 PMNote Text:Physical Therapy TreatmentSERVICE DATE: 12/23/2016SERVICE TIME: 1410 to 1449ROOM: [id number] Discharge Disposition: Subacute/SNFRecommended Discharge Disposition Comments: Patient [...] on feet;General symptoms and signs-otherInterventions Provided: Evaluation;Therapeutic Exercise(37199);Therapeuti c Activity (77473);Gait Training (52328)Therapeutic Exercise (75567) Treatment Minutes: 161 unitSkilled Intervention(s): Instruction in [...] to patient on benefits/rationale for exercisesTherapeutic Activity (43383) Treatment Minutes: 81 unitSkilled Intervention(s): Re-education/education to [...] decline and for circulation benefitsexplained, ambulation/mobilization with clinical staff anesthesiologist to prevent furtherdecline, sitting up in chair throughout the day especially for all mealsGait Training (64663) Treatment Minutes: 151 unitSkilled Intervention(s): Instruction in [...] reports recent difficulty with allmobility and ADLs REHAB TRAINER; 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, [...] TURE: Juli Bravo PT PATIENT NAME: Laura StarkDATE: December 23, 2016 : 3:09 PM PAGER/CONTACT #: [phone] [facility] THERAPY NT HNO ID: [id number] thor: Juli (Pt) LawrenceService: Physical TherapyAuthor Type: Physical TherapistType: Therapy (PT/OT/Speech/Resp)Filed: 12/23/2016 12:23 PMNote Text:PHYSICAL THERAPY MISSED VISITSERVICE DATE: 12/23/2016SERVICE TIME: 1119 to 1119ROOM: [id number] Treatment. Patient not seen due to Another service at bedside(GI TECH WRITER at bedside with patient). Will re-attempt when schedule permits.SIGNATURE: Juli Bravo PT PATIENT NAME: Laura SinclairTE: December 23, 2016 : 12:22 PM PAGER/CONTACT #: [phone] [facility] XR ABDOMEN 1V SUPINEon 12-23 XR [...] 23 2016 4:29PDictated by : CHRISTIANO LORENZO MDThicon examination was interpreted and the report reviewed and electronically signed by: CHRISTIANO LORENZO MD on Dec 23 2016 4:30PM [id number] [facility] CONSULT PROGon 12-22-2016 CONSULT PROG HNO ID: [id number] thor: PARVIN Roldanervice: Infectious DiseaseAuthor Type: PhysicianType: [...] and E coli HCAP. [facility] woundAcute respiratory failureFailed OP PO abx treatment w doxyWeaknessObesity, Class III, BMI >= 40Malnutrition of moderate degreeRECOMMENDATIONS:Disc ontinue vancomycin and ceftriaxoneSputum cxDiscussed w Dr Austin and Dr Gamez CXRVEST therapyIf CXR worse, may need to start meropenemSupportive careWean O1Cjqrbmaqrk careMEDICATIONS: reviewed.Current hospital medications:insulin NPH human 9 [...] 1.41*Microbiology data: reviewedImaging data: Du Mcginnis [phone] [facility] CONSULT PROG HNO ID: [id number] thor: Jaya Darby RaiService: Pulmonary DiseaseAuthor Type: PhysicianType: Consult Progress NoteFiled: 12/22/2016 7:44 PMNote Text: RESPIRATORY INSTITUTEPULMONARY MEDICINEIN-PATIENT CONSULT PROGRESS NOTESERVICE DATE: 12/22/2016ASSESSMENT:Asthma with acute exacerbationBilateral atelectasisRecent sputum (+) E coli and MRSA ([facility] - 12/06/16)Paroxysmal atrial fibrillation with RVRRemote [...] microbiology and pathology data.Virgen Voss Rai, Respiratory InstituteUC [facility] #[id number] COMPLAINT: Shortness of breathINTERVAL HPI:Laura Stark is [...] BP Temp Temp src Pulse Resp SpO2 Wddoxh06/08/17 1700 - - - 80 16 - [...] 22, 2016 : 7:34 PM PAGER/CONTACT #: [phone] [facility] CONSULT PROG HNO ID: [id number] thor: Mia Thomaservice: EndocrinologyAuthor Type: PhysicianType: Consult Progress NoteFiled: 12/22/2016 11:58 AMNote Text:DIABETES PROGRESS NOTEPATIENT NAME: Laura StarkMRN: [id number] DATE: 12/22/2016ASSESSMENT AND PLAN Ms. Stark is [...] it [facility].we will try to obtain the records from [facility] as outpatient and if needed consider [...] ORAL BID Yatish Jovanna 5 mg at 371304bzwihgs, enteric coated 81 mg tab(s) (ASPIRIN, ENTERIC COATED) 81 mg ORALDAILY Yatish Jovanna 81 mg at 12/22/16 0904metHIMazole 5 mg tab(s) (TAPAZOLE) 5 mg ORAL DAILY Mia Hasan 5 mg at102/22/16 0905morphine 1-2 mg injection 1-2 mg INTRAVENOUS q 4 H PRN Qarab Jon Syed2 mg at 12/19/16 1510digoxin 0.25 mg tab(s) (LANOXIN) 0.25 mg ORAL DAILY Qarab Jon Syed0.25 mg at 12/22/16 09polyethylene glycol 3350 17 g packet (MIRALAX, GLYCOLAX) 17 g ORAL DAILYYatish Jovanna 17 g at 12/22/16 09diltiazem CD 240 mg cap(s) (CARDIZEM CD, CARTIA XT) 240 mg ORAL DAILYQarab Jon Jeb 240 mg at 12/22/16 0905methylPREDNISolone sod succinate(PF) 40 mg injection (Solu-MEDROL) 40 mgINTRAVENOUS q 12 H Yatish Jovanna 40 mg at 12/22/16 09ondansetron (PF) 4 mg injection (ZOFRAN) 4 mg INTRAVENOUS q 6 H PRN YatishGoyal0.9% NaCl 10 mL 10 mL INTRAVENOUS q 12 H Yatish Jovanna 10 mL at 9080.9% NaCl 20 mL 20 mL INTRAVENOUS PRN [...] 24 HYatish Jovanna 1 g at 12/22/16 09montelukast 10 mg tab(s) (SINGULAIR) 10 mg ORAL AT BEDTIME Yatish Jovanna 10mg at 12/21/162045magnesium oxide 400 mg tab(s) (MAG-OX) 400 mg ORAL DAILY Yatish Jovanna 400mg at 12/22/16 09spironolactone 25 mg tab(s) (ALDACTONE) 25 mg ORAL BID Yatish Jovanna 25 mgat 12/22/16 09hydroCHLOROthiazide 25 mg tab(s) (HYDRODIURIL, ESIDRIX) 25 mg ORAL DAILYYatish Jovanna 25 mg at 12/22/16 09vancomycin dosing and monitoring per pharmacy OTHER As [...] lb 1.7 oz) SpO2 95% BMI 40.81 kg/a8Podbatw: Well appearing, alert, in no acute distress, [...] 252*Glucose, Point of CareDate Value Ref Range Mqqemb9712/22/2016 207 (A) 65 - 100 mg/dL Final SIGNATURE: Mia Correa MDDATE: December 22, 2016 Normal [facility] Comp Metabolic Panelon 12-22 Alanine aminotransferase (ALT) 44 U/L Normal 0-45 [facility] Comment on above: Performed By: #### C MP ####[facility] [address] [place] [address] Albumin 3.7 g/dL Normal 3.5-5.0 [facility] Comment on above: Performed By: #### C MP ####[facility] [address] [place] [address] Alkaline phosphatase (ALP) 78 U/L Normal 40-150 [facility] Comment on above: Performed By: #### C MP ####[facility] [address]yn[address] [place] [address] Anion gap 15 mmol/L Normal 0-15 [facility] Comment on above: Performed By: #### C MP ####[facility] [address]lsqs[address] [place] [address] Aspartate aminotransferase (AST) 15 U/L Normal 7-40 [facility] Comment on above: Performed By: #### C MP ####[facility] [address]ws[address] [place] [address] Bilirubin (total) 0.5 mg/dL Normal 0.0-1.5 [facility] Comment on above: Performed By: #### C MP ####[facility] [address] [place] [address] Calcium 9.4 mg/dL Normal 8.5-10.5 [facility] Comment on above: Performed By: #### C MP ####[facility] [address] [place] [address] Chloride 89 mmol/L Low 98-110 [facility] Comment on above: Performed By: #### C MP ####[place] [address] CO2 27 mmol/L Normal 23-32 [facility] Comment on above: Performed By: #### C MP ####[place] [address] Creatinine 1.48 mg/dL High 0.70-1.40 [facility] Comment on above: Performed By: #### C MP ####[facility] [address] [place] [address] eGFR (non-black) 43 mL/min/{1.73_m2} Normal [facility] Comment on above: Performed By: #### C MP ####[place] [address] eGFR (non-black) 36 . Normal [facility] Comment on above: Result Comment: eGFR (Estimated [...] actual GFR. Performed By: #### C MP ####[facility] [address] [place] [address] Glucose mass conc 207 mg/dL High 65-100 [facility] Comment on above: Performed By: #### C MP ####[facility] [address]bmqc[address] [place] [address] Potassium molar conc 4.0 mmol/L Normal 3.5-5.0 [facility] Comment on above: Performed By: #### C MP ####[facility] [address] [place] [id number] Protein 6.3 g/dL Normal 6.0-8.4 [facility] Comment on above: Performed By: #### C MP ####[facility] [address] [place] [address] Sodium 131 mmol/L Low 132-148 [facility] Comment on above: Performed By: #### C MP ####[facility] [address] [place] [id number] Urea nitrogen 52 mg/dL High 8-25 [facility] Comment on above: Performed By: #### C MP ####[facility] [address] [place] [address] NURSING PROGon 12-22-2016 NURSING PROG HNO ID: [id number] thor: Juli (Rn) Scooby, LEVIervice: (none)Author Type: Registered NurseType: Nursing Progress NoteFiled: 12/22/2016 12:54 PMNote Text: Nursing Progress NotePatient Name: Laura StarkMRN: [id number] Location: [place] [id number] Daily Note:0800: Assumed care of the patient [...] note was completed by: Juli Almodovar RN [facility] PLAN OF CAREon 12-22-2016 PLAN OF CARE HNO ID: [id number] thor: Natasha Enciso (Rn) Naldo, RNService: Case [...] E66.01Malnutrition of Moderate Degree (Hcc)Attendees Present at Rounds:Corrugator Supervisor: Lisaly: husbandPatient: Laura Charles Nurse: Jenny had Dr Nugent on phoneNeeds Discussed on Rounds:Plan of CareAnticipated Discharge Disposition:[facility] SNFL[facility] Vitals: BP 149/66 Pulse 85 Temp (Src) 97.7 (Oral) Resp 18 Ht5' 2 (1.58m) Wt 223 lb 1.7 oz (101.2kg) SpO2 95% BMI 40.80kg/(m2).Patient and verbalized frustration with no answer to her conditionand she has been sick since October. [place]I asked for PT/OT evaluation days ago. NATALI RN to place order today.FMLA paper at [...] December 22, 2016 : 10:48 AM CSN: [id number] [facility] PROGRESSon 12-22-2016 PROGRESS HNO ID: [id number] thor: Ronny AntoinerapuService: Cardiovascular DiseaseAuthor Type: PhysicianType: Progress NotesFiled: 12/22/2016 9:41 PMNote Text:INPATIENT CONSULT PROGRESS NOTESPatient Name: Laura StarkMRN: [id number] of SERVICE: 12/22/2016TIME of SERVICE: 9:30 PMCONSULTING [...] rate 20, height 157.5 cm (5' 2), mvaczl396.8 kg (237 lb 10.5 oz), SpO2 96 [...] TROPT in the last24 hours.SIGNATURE: Ronny Valente MUSCOGEESAMUEL; [phone]: December 22, 2016TIME: 9:30 PM [facility] PROGRESS HNO ID: [id number] thor: Lima Reyna (Pharmacist)Service: PharmacyAuthor Type: PharmacistType: Progress NotesFiled: 12/22/2016 10:46 AMNote Text:PHARMACY VANCOMYCIN DOSING NOTEPatient Name: Laura Stark Admission Date:12/15/2016Date of Consult: 12/22/2016 Time of Consult: 10:45 AM1. The primary service has discontinued vancomycin therapy. Pharmacyvancomycin dosing service will sign off. Thank you for allowing us toparticipate in this patient's care. Please contact pharmacy if questions.Lima Reyna, Pharmacist [facility] PROGRESS HNO ID: [id number] thor: Kiara Fleming: General Internal MedicineAuthor Type: [...] rate 18, height 157.5 cm (5' 2), asxafy771.2 kg (223 lb 1.7 oz), SpO2 96 [...] PATIENT NAME: Laura Stark PAGER/CONTACT #: Normal [facility] Respiratory Cult/Stainon Respiratory Cult/Stain Smear Result - [...] DALILA StatusPiperacillin/Tazobac RESISTANT >128 F Critically abnormal [facility] Comment on above: Performed By: #### C BCDIF, PT, PTT, CMP, MG1 ####[facility] [address] [place], [place] [id number] THERAPY NTon 12-22-2016 THERAPY NT HNO ID: [id number] thor: Mira (Ot/L) CecilService: Occupational TherapyAuthor Type: Occupational TherapistType: Therapy (PT/OT/Speech/Resp)Filed: 12/22/2016 3:39 PMNote Text:Occupational Therapy EvaluationSERVICE DATE: 12/22/2016SERVICE TIME: 1434 to 1503 (includes time for chart review)[address] [address] [facility] [address] Discharge Disposition: Subacute/SNF (short-term)Recommended Discharge Disposition Comments: [...] for:Ambulation;Transfers;C leaning;Laundry;Meals;Stai rs;Safety;SelfCare;Shoppin g;TransportationRecommende d Discharge Equipment: Office Rn;Long Handled Sponge (tub transferbench)OT Recommendations to Nursing: [...] activities of daily living (ADL)Interventions Provided: Evaluation;Self Shelter Management (18242)$ Evaluation-Low (03732) Billed Units: 1 unitSelf Shelter Management (59315) Treatment Minutes: 121 unitSkilled Intervention(s): Pt educated [...] with rationale.Pt educated in the differences between [facility] OT and receiving OT at SNF. Pteducated in benefits of goal setting and progressing from ADLs >IADLs/care of dtr for optimal safety for pt and dtr.Total Timed Code Treatment Minutes: 12Total Treatment Time (minutes): 30FUNCTIONAL G CODE:OT 6 Clicks Score: 20 (12/22/16 1924)Self Care Current Status (G8987): CJ (12/22/16 1434)Self Care Goal Status (G8988): (12/22/16 143)Based on clinical assessment and the score on the 6 Clicks FunctionalAssessment Tool, the G code and corresponding severity modifiers aredocumented above.SUBJECTIVE:Current Hospital Course: Chart reviewed; Patient is a 61 year old femaleadmitted with SOB and cough as well as fever; diagnosed acute exacerbationof asthma with failed outpatient therapy, recent hospital admission withdischarge following for pseudomonas + for Ecoli and MRSAPatient transferred from [facility] to telemetry unit 12/18 due to EKG [...] spouse completes, full flight with [facility] [place]lotteEquipment Owned: Commode-Raised;Grab Bars-Shower;Hand Held Shower;StandardWalker;Show er Chair (raised toilet seat with arms)Prior Functional Level: Within Functional Limits;Required AssistanceAssistance Required With: Other: See CommentPrior Functional Level Comments: Patient with decline in mobility for thepast 10 weeks with gradual debility, reports recent difficulty with allmobility and ADLs REHAB TRAINER; 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, [...] Upper Extremity Strength: Prox: 4-/5, distal: 4-/5, artist model: WFLRight Upper Extremity Strength: Prox: 2-/5, distal: 4-/5, artist model: WFLBalance: Dynamic Standing;Static StandingStatic Standing Balance: Stand [...] session. Nursing (RN)notified of current pt status.SIGNATURE: Mira Willis OT/Aris PATIENT NAME: Laura StarkDATE: December 22, 2016 : 3:26 PM PAGER: [phone] [facility] THERAPY NT HNO ID: [id number] thor: Mira (Ot/L) Raquelervice: Occupational TherapyAuthor Type: Occupational TherapistType: Therapy (PT/OT/Speech/Resp)Filed: 12/22/2016 3:16 PMNote Text:OCCUPATIONAL THERAPY MISSED VISITSERVICE DATE: 12/22/2016SERVICE TIME: 1309 to 1309ROOM: [id number] Evaluation. Patient not seen due to Another service at bedside:Physical Therapy.Will re-attempt as schedule allows.SIGNATURE: Mira Willis OT/Aris PATIENT NAME: Laura StarkDATE: December 22, 2016 : 3:16 PM PAGER/CONTACT #: [phone] [facility] THERAPY NT HNO ID: [id number] thor: Juli (Pt) KapteinService: Physical TherapyAuthor Type: Physical TherapistType: Therapy (PT/OT/Speech/Resp)Filed: 12/22/2016 2:46 PMNote Text:Physical Therapy EvaluationSERVICE DATE: 12/22/2016SERVICE TIME: 1250 to 1336ROOM: [id number] Discharge Disposition: Subacute/SNFRecommended Discharge Disposition Comments: Patient [...] on feet;General symptoms and signs-otherInterventions Provided: Evaluation;Therapeutic Exercise(54466);Therapeuti c Activity (79226);Gait Training (08442)$ Evaluation-Moderate (69678) Billed Units: 1 unitTherapeutic Exercise (11678) Treatment Minutes: 141 unitSkilled Intervention(s): Instruction in [...] to patient on benefits/rationale for exercisesTherapeutic Activity (85967) Treatment Minutes: 50 unitsSkilled Intervention(s): Education: Pt educated in role of PT during acutestay and PT POC, importance of OOB activity to reduce risk of functionaldecline including recommendation for up in chair throughout the dayespecially for all meals, benefits described on upright sitting positionon GI function, lung function, discussed importance of mobilization withRN staff throughout the day and ability for chair follow from clinical staff anesthesiologist aswell as needed, LE AROM throughout the [...] to ambulate during acute stay and recently REHAB TRAINER holding ontoobjects, discussed potential increased falls risk with this technique andimproved safety with use of assistive deviceSee below for additional cues and assistGait Training (63562) Treatment Minutes: 101 unitSkilled Intervention(s): Instruction in [...] x 2 with chair follow throughout from [facility] for optimalsafety, patient with frequent brief standing [...] + for Ecoli and MRSAPatient transferred from [facility] to telemetry unit 12/18 due to EKG [...] reports recent difficulty with allmobility and ADLs REHAB TRAINER; 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, [...] in bedside recliner chair with lunch tray whe-jzshiy-cmapkrgng, call melgar and personal belongings in reach, [...] details for this therapy evaluation/treatment.JESSICA PHILLIP: Juli Bravo, PT PATIENT NAME: Laura StarkDATE: December 22, 2016 : 2:29 PM PAGER/CONTACT #: [phone] [facility] XR CHEST 1V FRONTAL PORTon 1 [...] all amount of LEFT basilar atelectasis or scarring.[facility] Specialist: ALBARO Transcribe Date/Time: Dec 22 2016 9:05ADictated by : Eugenia BLUNT examination was interpreted and the report reviewed and electronically signed by: GRANT GIRON DO on Dec 22 2016 9:08AM [id number] Normal [facility] CBCon 12-21-2016 Erythrocyte distribution width Auto Ratio (RBC) 16.8 % High 11.5-15.0 [facility] Comment on above: Performed By: #### C HUDSON ####[place] [address] Erythrocytes (RBC) 4.41 10*6/uL Normal 3.90-5.20 [facility] Comment on above: Performed By: #### C HUDSON ####[place] [address] Hematocrit (HCT) 37.8 % Normal 36.0-46.0 [facility] Comment on above: Performed By: #### C MILAB ####[place] [address] Hemoglobin mass conc (Bld) 12.1 g/dL Normal 11.5-15.5 [facility] Comment on above: Performed By: #### C KCKMB ####[place] [address] MCH 27.4 pG Normal 26.0-34.0 [facility] Comment on above: Performed By: #### C KCYANIB ####[place] [address] MCHC mass conc (RBC) 32.0 g/dL Normal 30.5-36.0 [facility] Comment on above: Performed By: #### C KCKMB ####[place] [address] MCV 85.7 fL Normal 80.0-100.0 [facility] Comment on above: Performed By: #### C KCKMB ####[place] [address] Platelet mean volume (PMV) 10.3 fL Normal 9.0-12.7 [facility] Comment on above: Performed By: #### C KCKMB ####[place] [address] Platelets 227 10*3/uL Normal 150-400 [facility] Comment on above: Performed By: #### C KCKMB ####[facility] [address]eliqfspiv[address] WBC (Leukocytes) 10.56 10*3/uL Normal 3.70-11.00 [facility] Comment on above: Performed By: #### C KCKMB ####[facility] Siucywjrzn8[address] CONSULT PROGon 12-21-2016 CONSULT PROG HNO ID: [id number] thor: Kamaljit Jimenez: EndocrinologyAuthor Type: PhysicianType: Consult Progress NoteFiled: 12/21/2016 7:44 PMNote Text: CONSULT PROGRESS NOTEPatient Name: Laura Stark Account #: Data UnavailableMRN: [id number] Admission Date: 12/15/2016Date of Evaluation: 12/21/2016 Time of Evaluation: 5:12 Wan Stark is being seen in consultation for advice and/or opinionregarding the management of steroid induced uncontrolled blood sugar,hyperthyroid and thyroid nodules.INTERVAL HPI: feeling slightly better than before, started on 5 mgmethimazole from yesterday, still blood sugar is running high 100s to suh279y. US thyroid showed multiple nodules, with a dominant nodule in theleft lobe, as per pt she had an US guided FNA at [facility] years ago.PERTINENT ROS:GENERAL: Unintentional weight lossHEENT: [...] BP Temp Temp src Pulse Resp SpO2 Cvyjux95/07/17 1647 - - - 90 20 - [...] -12/20/162002 - - - 87 20 - -12/20/161946 - - - 87 18 96 % [...] Results InImpressionIMPRESSION:Thy roid nodules as noted in results.[facility] Specialist: ALBARO ?Transcribe Date/Time: Dec 11:35ADictated by : JULIEN MACHUCA MDThis examination was interpreted and the report reviewed andelectronically signed by:JULIEN MACHUCA MD on Dec 11:38AM ?ESTASSESSMENT AND PLAN:Uncontrolled blood sugar from steroid (DM-2): still on solumedrol 40 pmK78om, on NPH 5 units BID but not [...] [facility]Plan: we will try to obtain the records from [facility] as outpatient and if needed consider US guided FNA once hyperthyroid and Afib isunder control as outpatient.ELECTRONICALLY SIGNED: Kamaljit Guillermo MD 12/21/2016 7:12 PM [facility] CONSULT PROG HNO ID: [id number] thor: Jaya Darby RaiService: Pulmonary DiseaseAuthor Type: PhysicianType: Consult Progress NoteFiled: 12/21/2016 2:57 PMNote Text: RESPIRATORY INSTITUTEPULMONARY MEDICINEIN-PATIENT CONSULT PROGRESS NOTESERVICE DATE: 12/21/2016ASSESSMENT:Asthma with acute exacerbationBilateral atelectasisRecent sputum (+) E coli and MRSA ([facility] - 12/06/16)Paroxysmal atrial fibrillation with RVRRemote [...] microbiology and pathology data.Virgen Voss Rai, Respiratory InstituteSelect Medical Specialty Hospital - YoungstownPager #[phone] COMPLAINT: Wheezing, shortness of breathINTERVAL HPI:Laura Stark [...] BP Temp Temp src Pulse Resp SpO2 Vfhmnl41/07/17 1148 - - - 89 20 98 [...] -12/20/162002 - - - 87 20 - -12/20/161946 - - - 87 18 96 % [...] 70 69 69TBILI 0.5 0.6 0.4Cardiac EnzymesABGsSIGNATURE: Jaya Darby Rai, MD PATIENT NAME: Laura StarkDATE: December 21, 2016 : 2:47 PM PAGER/CONTACT #: [phone] Normal [facility] CONSULT PROG HNO ID: [id number] thor: PARVIN Roldanervice: Infectious DiseaseAuthor Type: PhysicianType: Consult Progress NoteFiled: 12/22/2016 6:55 AMNote Text:INFECTIOUS DISEASE PROGRESS NOTEPatient Name: Laura Stark HISTORY:Stable on floor. On RA O2 now. No fevers. SOB is better. Still weak. Nodiarrhea. ROS checked in details. All qs answered.Patient Active Hospital Problem List: Weakness (12/16/2016) Obesity, Class III, BMI >= 40 (morbid obesity) E66.01 (12/16/2016) Malnutrition of moderate degree (HCC) (12/16/2016)ASSESSMENT:MRSA and E coli HCAP. [facility] cultures from [facility] woundAcute respiratory failureFailed OP PO abx treatment w doxyWeaknessObesity, Class III, BMI >= 40Malnutrition of moderate degreeRECOMMENDATIONS:Cont inue vancomycin and ceftriaxoneResp viral panel checkSupportive carePO abx at discharge anticipated likely doxy and omnicef x 5 days moreWean R4Iraylzeasn careMEDICATIONS: reviewed.Current hospital medications:guaiFENesin 1,200 mg ER [...] data: Du Mcginnis [phone]:4 9 AM Normal [facility] Comp Metabolic Panelon 12-21 Alanine aminotransferase (ALT) 39 U/L Normal 0-45 [facility] Comment on above: Performed By: #### C ARIAKMB ####[facility] [address] [place] [address] Albumin 3.6 g/dL Normal 3.5-5.0 [facility] Comment on above: Performed By: #### C ARIAKMB ####[facility] [address] [place] [address] Alkaline phosphatase (ALP) 70 U/L Normal 40-150 [facility] Comment on above: Performed By: #### C ARIAKMB ####[facility] [address] [place] [address] Anion gap 18 mmol/L High 0-15 [facility] Comment on above: Performed By: #### C KCKMB ####[facility] [address] [place] [address] Aspartate aminotransferase (AST) 13 U/L Normal 7-40 [facility] Comment on above: Performed By: #### C KCKMB ####[facility] [address] [place] [address] Bilirubin (total) 0.5 mg/dL Normal 0.0-1.5 [facility] Comment on above: Performed By: #### C KCKMB ####[facility] [address] [place] [address] Calcium 9.4 mg/dL Normal 8.5-10.5 [facility] Comment on above: Performed By: #### C KCKMB ####[facility] [address] [place] [address] Chloride 88 mmol/L Low 98-110 [facility] Comment on above: Performed By: #### C KCKMB ####[place] [address] CO2 25 mmol/L Normal 23-32 [facility] Comment on above: Performed By: #### C ARIAKMB ####[facility] [address] [place] [address] Creatinine 1.38 mg/dL Normal 0.70-1.40 [facility] Comment on above: Performed By: #### C ARIAKMB ####[place] [address] eGFR (non-black) 39 . Normal [facility] Comment on above: Result Comment: eGFR (Estimated [...] actual GFR. Performed By: #### C KCKMB ####[place] [address] eGFR (non-black) 47 mL/min/{1.73_m2} Normal [facility] Comment on above: Performed By: #### C KCKMB ####[facility] [address] [place] [address] Glucose mass conc 198 mg/dL High 65-100 [facility] Comment on above: Performed By: #### C KCKMB ####[place] [address] Potassium molar conc 3.9 mmol/L Normal 3.5-5.0 [facility] Comment on above: Performed By: #### C KCKMB ####[facility] [address]ul[address] [place] [address] Protein 6.2 g/dL Normal 6.0-8.4 [facility] Comment on above: Performed By: #### C HUDSON ####[facility] [address] [place] [address] Sodium 131 mmol/L Low 132-148 [facility] Comment on above: Performed By: #### C HUDSON ####[facility] [address] [place] [address] Urea nitrogen 40 mg/dL High 8-25 [facility] Comment on above: Performed By: #### C HUDSON ####[facility] [address] [place] [address] Alanine aminotransferase (ALT) 39 U/L Normal 0-45 [facility] Comment on above: Performed By: #### C HUDSON ####[facility] [address] [place] [address] Albumin 3.6 g/dL Normal 3.5-5.0 [facility] Comment on above: Performed By: #### C HUDSON ####[facility] [address] [place] [address] Alkaline phosphatase (ALP) 69 U/L Normal 40-150 [facility] Comment on above: Performed By: #### C HUDSON ####[facility] [address] [place] [address] Anion gap 17 mmol/L High 0-15 [facility] Comment on above: Performed By: #### C HUDSON ####[facility] [address] [place] [address] Aspartate aminotransferase (AST) 14 U/L Normal 7-40 [facility] Comment on above: Performed By: #### C HUDSON ####[facility] [address] [place] [address] Bilirubin (total) 0.6 mg/dL Normal 0.0-1.5 [facility] Comment on above: Performed By: #### C HUDSON ####[facility] [address] [place] [address] Calcium 5.3 mg/dL Low 8.5-10.2 [facility] Comment on above: Result Comment: Call ed to and read back by: Bibiana JASON [address] 12/21/16 05:36 Kimberly Performed By: #### C KCKMB ####[facility] [address]otpcjg[address] [place] [address] Chloride 88 mmol/L Low 98-110 [facility] Comment on above: Performed By: #### C KCKMB ####[facility] Erriaficmm[address] [place] [address] CO2 25 mmol/L Normal 23-32 [facility] Comment on above: Performed By: #### C KCKMB ####[facility] [address]zzlewmq6141 [place] [address] Creatinine 1.41 mg/dL High 0.70-1.40 [facility] Comment on above: Performed By: #### C KCKMB ####[facility] [address] [place] [address] eGFR (non-black) 46 mL/min/{1.73_m2} Normal [facility] Comment on above: Performed By: #### C KCKMB ####[facility] [address]wmv[address] [place] [address] eGFR (non-black) 38 . Normal [facility] Comment on above: Result Comment: eGFR (Estimated [...] actual GFR. Performed By: #### C KCKMB ####[facility] [address]ulsky4097 [place] [address] Glucose mass conc 208 mg/dL High 65-100 [facility] Comment on above: Performed By: #### C KCKMB ####[facility] [address]hzo2638 [place] [address] Potassium molar conc 7.3 mmol/L Critically high 3.7-5.1 [facility] Comment on above: Result Comment: Call ed to and read back by: Bibiana JASON [address] 12/21/16 05:36 SRafy Performed By: #### C KCKMB ####[facility] [address]rum[address] [place] [address] Protein 6.0 g/dL Normal 6.0-8.4 [facility] Comment on above: Performed By: #### C KCKMB ####[facility] [address]fm[address] [place] [address] Sodium 130 mmol/L Low 132-148 [facility] Comment on above: Performed By: #### C KCKMB ####[facility] [address] [place] [address] Urea nitrogen 42 mg/dL High 8-25 [facility] Comment on above: Performed By: #### C KCKMB ####[facility] [address] [place] [address] NURSING PROGon 12-21-2016 NURSING PROG HNO ID: [id number] thor: Kassidy (Rn) Justa, RNService: (none)Author Type: Registered NurseType: Nursing Progress NoteFiled: 12/21/2016 5:38 AMNote Text: Nursing Progress NotePatient Name: Laura StarkMRN: [id number] Location: [place] [id number]___ Daily Note: Called Dr. Sameer lyons regarding morning labs. Orders received.This note was completed by: Kassidy Marr RN [facility] PROGRESSon 12-21-2016 PROGRESS HNO ID: [id number] thor: Ronny De La TorreuService: Cardiovascular DiseaseAuthor Type: PhysicianType: Progress NotesFiled: 12/21/2016 9:00 PMNote Text:INPATIENT CONSULT PROGRESS NOTESPatient Name: Laura StarkMRN: [id number] of SERVICE: 12/21/2016TIME of SERVICE: 8:53 PMCONSULTING [...] rate 20, height 157.5 cm (5' 2), uwljij540.8 kg (237 lb 10.5 oz), SpO2 96 [...] in the last24 hours.SIGNATURE: BECKY Fountain; [phone]: December 21, 2016TIME: 8:53 PM [facility] PROGRESS HNO ID: [id number] thor: Yimi Yuan (Computerized Mill Mill Recorder)Service: PharmacyAuthor Type: PharmacistType: Progress NotesFiled: 12/21/2016 4:45 [...] you have any questions, please contact pharmacy [phone].Age: 61 year oldAllergies:ALLERGIESAlle rgen Reactions- Clindamycin Hives- [...] 42 (H)12/19/2016 37 (H) Creatinine (mg/dL)Date Value12/21/2016 1.38102/21/2016 1.41 (H)12/19/2016 1.22 WBC (k/uL)Date Value12/21/2016 10.5611 7.5911 10.96 Vancomycin Levels:Vancomycin, result (ug/mL)Date Value12/21/2016 26.8 (H)12/19/2016 16.1 YIMI YUAN, ACCORDION TUNER [facility] PROGRESS HNO ID: [id number] thor: Kiara Fleming: General Internal MedicineAuthor Type: [...] rate 20, height 157.5 cm (5' 2), znerkn746.3 kg (221 lb 1.6 oz), SpO2 98 [...] MD PATIENT NAME: Laura Stark PAGER/CONTACT #: [facility] PROGRESS HNO ID: [id number] thor: Ronny De La TorreuService: Cardiovascular DiseaseAuthor Type: PhysicianType: Progress NotesFiled: 12/20/2016 10:33 PMNote Text:INPATIENT CONSULT PROGRESS NOTESPatient Name: Laura StarkMRN: [id number] of SERVICE: 12/20/2016TIME of SERVICE: 10:26 PMCONSULTING [...] rate 20, height 157.5 cm (5' 2), sgyrgs340.8 kg (237 lb 10.5 oz), SpO2 96 [...] TROPT in the last24 hours.SIGNATURE: Ronny Valente [facility]; [phone]: December 20, 2016TIME: 10:26 PM Normal [facility] US THYROID/PARATHYROIDon US THYROID/PARATHYROID * * *Final Report * * *DATE OF EXAM: Dec 21 2016 11:00AM NATHALIE 1048 - THYROID/PARATHYROID / REASON: Hyperthyroidism * * * [...] a permanent archive.IMPRESSION:Thyroid nodules as noted in results.Ncqa Specialist: PSCB Transcribe Date/Time: Dec 21 2016 11:35ADictated by : JULIEN MACHUCA MDThis examination was interpreted and the report reviewed and electronically signed by: JULIEN MACHUCA MD on Dec 21 2016 11:38AM [id number] Normal [facility] Vancomycinon 12-21-2016 Vancomycin 26.8 ug/mL High 5.0-20.0 [facility] Comment on above: Result Comment: Refe rence ranges and high/low indicator flags are provided as general guidelines only. The treating physician must determine appropriate target levels/dosing based on the specific clinical situation. Performed By: #### C KCKMB ####[facility] [address] [place], [place] [phone] CONSULT PROGon 12-20-2016 CONSULT PROG HNO ID: [id number] thor: PARVIN Roldanervice: Infectious DiseaseAuthor Type: PhysicianType: [...] doxy and omnicef x 5 days moreWean B3Mhzxoeuiwq careMEDICATIONS: reviewed.Current hospital medications:guaiFENesin 1,200 mg ER [...] 1.22 1.41*Microbiology data: reviewedImaging data: Du Mcginnis [id number]:1 2 PM [facility] CONSULT PROG HNO ID: [id number] thor: Jaya Singh RaiService: Pulmonary DiseaseAuthor Type: PhysicianType: Consult Progress NoteFiled: 12/20/2016 1:28 PMNote Text:RESPIRATORY INSTITUTEPULMONARY MEDICINEINPATIENT CONSULT PROGRESS NOTESERVICE DATE: 12/20/2016ASSESSMENT:Asthma with acute exacerbationBilateral atelectasisRecent sputum (+) E coli and MRSA ([facility] - 12/06/16)Paroxysmal atrial fibrillation with RVRRemote [...] a 61 yo female who presented to [place] ED 12/15/2016 withcomplaints of cough, dyspnea and [...] positive for E.coli and MRSA (12/06) at [facility]. [facility]zi[facility]Janes[facility] post-discharge. No recent [...] hrs: BP Temp Temp src Pulse Resp BwT12712/20/16 1106 - - - 90 18 -12/20/16 [...] 2200 129/75 - - (!) 122 - -12/19/162053 - - - (!) 140 20 -12/19/162043 - - - (!) 138 20 97 %12/19/16 1817 139/73 - - (!) 139 - -12/19/161813 133/79 - - (!) 143 - -12/19/16 180 131/86 - - (!) 143 - -12/19/16 [...] 20, 2016 : 11:28 AM PAGER/CONTACT #: [id number] have personally interviewed and examined the patient.I [...] Changes, ifany, are noted.Virgen Voss Rai, Respiratory InstituteSelect [facility] Specialty Hospital - YoungstownPager #[phone] [facility] NURSING PROGon 12-20-2016 NURSING PROG HNO ID: [id number] thor: Kassidy (Rn) LEVI Marrervice: (none)Author Type: Registered NurseType: Nursing Progress NoteFiled: 12/20/2016 7:30 PMNote Text: Nursing Progress NotePatient Name: Laura StarkMRN: [id number] Location[facility]0241/FR-8V-2071-1___ Daily Note:930 Received report from [place]. Patient up to chair. Denies any painor SOB right now. Will continue to monitor. Call light within reach.This note was completed by: Kassidy Marr RN [facility] NURSING PROG HNO ID: [id number] thor: Sydnee Del Cid) Carlos Alcantar: (none)Author Type: Registered NurseType: Nursing Progress NoteFiled: 12/20/2016 11:34 AMNote Text: Nursing Progress NotePatient Name: Laura StarkMRN: [id number] Location: [facility]0241/DG-4N-2363-1___ Daily Note:0850- Patient SR on tele, converted to SR at 0400. Spoke with Dr. Russ.Orders received to give PO cardizem as scheduled, adjust IV cardizem to7.5 ml/hr at 0930, then discontinue IV cardizem at 1000.0930- IV cardizem rate adjusted to 7.5 ml/hr. SR on tele, HR 80s.1000- IV cardizem stopped. SR on tele, HR 80s.This note was completed by: Sydnee Alcantar RN [facility] NURSING PROG HNO ID: [id number] thor: Sharee RivasRn) Carlos Harp: (none)Author Type: Registered NurseType: Nursing Progress NoteFiled: 12/20/2016 7:02 AMNote Text: Nursing Progress NotePatient Name: Laura StarkMRN: [id number] [facility]/BX-8Z-7008-1___ Daily Note:1945-Pt assessed. No needs at this time. Call light in reach. Reportsno chest pain/pressure at this time.2044-Pt given meds. RT in to give neb tx. Pt HR 140 on tele; ptasymptomatic. Will cont. To monitor.0- No labs ordered for a.m. Note from [...] to monitor. Will not titrate at this time.30-Morning labs drawn from PICC. Flushed line w/20cc after draws. Sentto lab via tube system. Pt flipping back to SR. Dr. Nugent called. Leftmsg that pt was in SR again and cardizem needed titrated to call back ifnew orders needed. Awaiting return callThis note was completed by: Sharee Harp RN [facility] NUTRITIONon 12-20-2016 NUTRITION HNO ID: [id number] thor: Terrie Cesar) LacieService: Nutrition TherapyAuthor Type: Registered DietitianType: NutritionFiled: 12/20/2016 11:35 AMNote Text:NUTRITION UPDATE NOTE -PATIENT NAME: Laura StarkMRN: [id number] OF : 1955SERVICE DATE: December 20, 2016Per HPI: Acute Asthma exacerbation Adequate intake to meet needs. 75-100% of meals. Reviewed current labs and physician progress notes. Will follow- up in 7 days or as consulted.Discharge Nutrition Recommendations:Diet: regularMNT Billing Type: Routine Care/15 minNumber of Increments: 1Mjosi Trejo RD, LD [facility] PLAN OF CAREon 12-20-2016 PLAN OF CARE HNO ID: [id number] thor: Natasha Enciso (Rn) LEVI Hitchcockervice: Case [...] E66.01Malnutrition of Moderate Degree (Hcc)Attendees Present at Rounds:Corrugator Supervisor: Lisaly: and sisterPatient: Laura Reyes Araceli Nurse: Sydnee GROVESeedcon Discussed on Rounds:Plan of CareAnticipated Discharge Disposition:[facility] SNFLast Vitals: BP 147/89 Pulse 89 Temp (Src) 98.8 (Oral) Resp 20 Ht5' 2 (1.58m) Wt 237 lb 10.5 oz (107.8kg) SpO2 91% BMI 43.46kg/(m2). Chose [facility] (ref sent) , List of SNF given [...] Equipment at BedsideRespiratory Alteration Goals/Outcomes: Decrease of RespiratoryDistress;Patien t Demonstrates Adequate VentilationRespiratory Goal Target Achievement Date: 12/22/16DOCUMENTED BY: Natasha Hitchcock RN PATIENT NAME: Laura StarkDATE: December 20, 2016 : 10:08 AM CSN: [id number] [facility] PROGRESSon 12-20-2016 PROGRESS HNO ID: [id number] thor: Lauren Bernard (Pharmacist)Service: PharmacyAuthor Type: PharmacistType: [...] have any questions, please contact inpatientpharmacy at [phone].Age: 61 year oldAllergies:ALLERGIESAlle rgen Reactions- Clindamycin Hives- [...] Value12/19/2016 16.111 37.9 (H) LAUREN BERNARD, PHARMACIST [facility] PROGRESS HNO ID: [id number] thor: Kiara Fleming: General Internal MedicineAuthor Type: PhysicianType: Progress NotesFiled: 12/20/2016 1:08 PMNote Text:INTERNAL MEDICINE PROGRESS NOTEADMITTING PHYSICIAN: Kiara SternJECTIVECHIEF COMPLAINT: [...] rate 18, height 157.5 cm (5' 2), epkbur922.8 kg (237 lb 10.5 oz), SpO2 96 [...] PATIENT NAME: Laura Stark PAGER/CONTACT #: Normal [facility] Rapid PCR FLU/RSVon 12-21-19 Influenza A PCR Negative [facility] Comment on above: Performed By: #### C KCKMB ####[facility] [address] [place] [address] Influenza B PCR Negative Normal [facility] Comment on above: Performed By: #### C HUDSON ####[facility] [address] [place] [address] RSV PCR Negative Normal [facility] Comment on above: Performed By: #### C HUDSON ####[facility] [address] [place] [address] Specimen source Nasopharyngeal Swab Normal [facility] Comment on above: Performed By: #### C KCYANIB ####[facility] [address] [place] [address] Resp Vir Pnl by PCRon 2016 Adenovirus B/E Negative Normal Negative [facility] Comment on above: Performed By: #### C HUDSON ####[facility] [address] [place] [address] Adenovirus C Negative Normal Negative [facility] Comment on above: Performed By: #### C KCYANIB ####[facility] [address] [place] [address] H Metapneumovirus Negative Normal Negative [facility] Comment on above: Performed By: #### C KCYANIB ####[facility] [address] [place] [address] Influenza A H1N1 09 Negative Normal Negative [facility] Comment on above: Performed By: #### C MILAB ####[facility] [address] [place] [address] Influenza A Virus Negative Normal Negative [facility] Comment on above: Performed By: #### C KCYANIB ####[facility] [address] [place] [address] Influenza B Virus Negative Normal Negative [facility] Comment on above: Performed By: #### C KCKMB ####[facility] [address] [place] [address] Parainfluenza 1 Negative Normal Negative [facility] Comment on above: Performed By: #### C KCKMB ####[facility] [address] [place] [address] Parainfluenza 2 Negative Normal Negative [facility] Comment on above: Performed By: #### C KCKMB ####[facility] [address] [place] [address] Parainfluenza 3 Negative Normal Negative [facility] Comment on above: Performed By: #### C HUDSON ####[facility] [address] [place] [address] Resp Syncytial Vir A Negative Normal Negative [facility] Comment on above: Performed By: #### C HUDSON ####[facility] [address] [place] [address] Resp Syncytial Vir B Negative Normal Negative [facility] Comment on above: Performed By: #### C HUDSON ####[facility] [address] [place] [address] Resp Viral Panl Srce Nasopharyngeal Swab Normal [facility] Comment on above: Performed By: #### C HUDSON ####[facility] [address] [place] [address] Rhinovirus Negative Normal Negative [facility] Comment on above: Performed By: #### C HUDSON ####[facility] [address] [place] [address] CBCon 12-19-2016 Erythrocyte distribution width Auto Ratio (RBC) 17.1 % High 11.5-15.0 [facility] Comment on above: Performed By: #### C BC, CMP ####[place] [address] Erythrocytes (RBC) 4.19 10*6/uL Normal 3.90-5.20 [facility] Comment on above: Performed By: #### C BC, CMP ####[place] [address] Hematocrit (HCT) 35.8 % Low 36.0-46.0 [facility] Comment on above: Performed By: #### C BC, CMP ####[place] [address] Hemoglobin mass conc (Bld) 11.3 g/dL Low 11.5-15.5 [facility] Comment on above: Performed By: #### C BC, CMP ####[facility] [address] [place] [address] MCH 27.0 pG Normal 26.0-34.0 [facility] Comment on above: Performed By: #### C BC, CMP ####[facility] [address] [place] [address] MCHC mass conc (RBC) 31.6 g/dL Normal 30.5-36.0 [facility] Comment on above: Performed By: #### C BC, CMP ####[facility] [address] [place] [address] MCV 85.4 fL Normal 80.0-100.0 [facility] Comment on above: Performed By: #### C BC, CMP ####[facility] [address] [place] [address] Platelet mean volume (PMV) 9.4 fL Normal 9.0-12.7 [facility] Comment on above: Performed By: #### C BC, CMP ####[facility] [address] [place] [address] Platelets 206 10*3/uL Normal 150-400 [facility] Comment on above: Performed By: #### C PAT, CMP ####[facility] [address] [place] [address] WBC (Leukocytes) 7.59 10*3/uL Normal 3.70-11.00 [facility] Comment on above: Performed By: #### C PAT, CMP ####[facility] [address] [place] [address] CONSULTon 12-19-2016 CONSULT HNO ID: [id number] thor: Mia RobbinsanService: EndocrinologyAuthor Type: PhysicianType: ConsultsFiled: 12/19/2016 3:29 PMNote Text:Referring Physician: Kiara Mccabe for consultation: HyperthyroidismSubjective: Laura Stark is a 61 year old female 61-year-old female with historyof asthma, PE/DVT and Hypertension presented to the ER with dyspnea.Patient reports that she developed palpitations and SOB last night. Shewas found to have AF with RVRPatient reports [facility]. She has beensick with pulmonary issues [...] , low cervical- COLONOSCOP W/ OR W/O [facility] SPEC 01-09-13- DEBRIDE SKIN AND SUBQ TISSU [...] pulsesSkin: no rashes/ erythemaLAB:TSHDate Value Ref Range Czsnor9612/18/2016 0.242 (L) 0.400 - 5.500 uU/mL Final Free T4Date Value Ref Range Ddjtxp5912/18/2016 1.9 (H) 0.9 - 1.7 ng/dL Final No results found for: M1OQIZVKQCPF/PLAN:1) Hyperthyroidism:Likely Graves disease vs toxic nodulePatient presented with new onset A.Juan Free T3 and TSIRecently underwent CT with [...] make further recommendationsaccordingly .Mia Correa MD12/19/16 Normal [facility] Comp Metabolic Panelon 12-19 Alanine aminotransferase (ALT) 33 U/L Normal 0-45 [facility] Comment on above: Performed By: #### C BC, CMP ####[facility] [address] [place] [phone] Albumin 3.7 g/dL Normal 3.5-5.0 [facility] Comment on above: Performed By: #### C BC, CMP ####[facility] [address] [place] [phone] Alkaline phosphatase (ALP) 69 U/L Normal 40-150 [facility] Comment on above: Performed By: #### C PAT, CMP ####[facility] [address] [place] [address] Anion gap 15 mmol/L Normal 0-15 [facility] Comment on above: Performed By: #### C BC, CMP ####[facility] [address] [place] [address] Aspartate aminotransferase (AST) 14 U/L Normal 7-40 [facility] Comment on above: Performed By: #### C BC, CMP ####[place] [address] Bilirubin (total) 0.4 mg/dL Normal 0.0-1.5 [facility] Comment on above: Performed By: #### C BC, CMP ####[place] [address] Calcium 9.6 mg/dL Normal 8.5-10.5 [facility] Comment on above: Performed By: #### C BC, CMP ####[place] [address] Chloride 96 mmol/L Low 98-110 [facility] Comment on above: Performed By: #### C BC, CMP ####[place] [address] CO2 25 mmol/L Normal 23-32 [facility] Comment on above: Performed By: #### C BC, CMP ####[place] [address] Creatinine 1.22 mg/dL Normal 0.70-1.40 [facility] Comment on above: Performed By: #### C BC, CMP ####[facility] [address] [place] [address] eGFR (non-black) 45 . Normal [facility] Comment on above: Result Comment: eGFR (Estimated [...] GFR. Performed By: #### C BC, CMP ####[facility] [address] [place] [address] eGFR (non-black) 54 mL/min/{1.73_m2} Normal [facility] Comment on above: Performed By: #### C BC, CMP ####[facility] [address] [place] [address] Glucose mass conc 191 mg/dL High 65-100 [facility] Comment on above: Performed By: #### C BC, CMP ####[facility] [address] [place] [address] Potassium molar conc 3.6 mmol/L Normal 3.5-5.0 [facility] Comment on above: Performed By: #### C BC, CMP ####[place] [address] Protein 6.1 g/dL Normal 6.0-8.4 [facility] Comment on above: Performed By: #### C BC, CMP ####[facility] [address] [place] [address] Sodium 136 mmol/L Normal 132-148 [facility] Comment on above: Performed By: #### C BC, CMP ####[place] [address] Urea nitrogen 37 mg/dL High 8-25 [facility] Comment on above: Performed By: #### C BC, CMP ####[facility] [address] [place] [address] Free T3on 12-19-2016 Triiodothyronine (T3) free 2.1 pg/mL Low 2.3-4.1 [facility] Comment on above: Performed By: #### F REET3, TRAB ####[facility] [address] [place], [place] [phone] NURSING PROGon 12-19-2016 NURSING PROG HNO ID: [id number] thor: Maritza (Rn) Delma, RNService: (none)Author Type: Registered NurseType: Nursing Progress NoteFiled: 12/19/2016 8:00 PMNote Text: Nursing Progress NotePatient Name: Laura Alfredo: [id number] [facility]/FC-8X-3268-1___ Daily Note:0730- Bedside report received. Pt sleeping. No needs noted. Call lightwithin reach.0735- Pt converted back to Afib.0810- Resting in bed. AANDOx3. Apical irregular. Converted back to Afib, [id number]'s. Denies chest pain. C/O palpitations and dyspnea. [...] use ofBSC until HR normalized.1500- Informed by [employer] that pt's HR sustaining in the 140's. [...] note was completed by: Maritza Nguyễn RN [facility] NURSING PROG HNO ID: [id number] thor: Sharee (Rn) Loyd, RNService: (none)Author Type: Registered NurseType: Nursing Progress NoteFiled: 12/19/2016 4:28 AMNote Text: Nursing Progress NotePatient Name: Laura StarkMRN: [id number] Location: [place] [address]/SO-0I-1916-1___ Daily Note:2300-Call to Dr. Russ regarding pt HR in 140-170's. Pt is up in BRwashing up. Reports HAWTHORNE. Tele reported she was having artifact andultimately she went back into A-fib. Dr. Russ gave VTO to give tgvwdytyyf479 mg TID.0- EKG done d/t A-fib on [...] HR down to 100-110 bpm.Call light in hbglz3127-Nglru draws collected from PICC line [facility] note was completed by: Sharee Harp RN [facility] PROGRESSon 12-19-2016 PROGRESS HNO ID: [id number] thor: Kiara Watsone: General Internal MedicineAuthor Type: [...] MD PATIENT NAME: Laura Stark PAGER/CONTACT #: [facility] PROGRESS HNO ID: [id number] thor: Santos Webb SyedService: Cardiovascular MedicineAuthor Type: PhysicianType: Progress NotesFiled: 12/19/2016 2:19 PMNote Text:PROGRESS NOTE CARDIOLOGY SERVICESERVICE DATE: 12/19/2016SERVICE TIME: 2:09 PMSUBJECTIVEINTERIM HISTORY: Patient has no chest pain but with mild activity shedevelops significant SOB or palpitations.MEDICATIONS:[facility] medications:apixaban 5 mg tab(s) (ELIQUIS) 5 [...] BP Temp Temp src Pulse Resp SpO2 Cpfrrn83/05/17 1145 - - - 115 20 - [...] 0.4AST 14ALT 33Last Lab Drawn:TSH 0.242 12/18/2016ASSESSMENT/PLANPa [facility] Problem List: Weakness (12/16/2016) Obesity, Class III, 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 Started on Amiodarone 400mgTID. Consider FERNANDO / DCCVH/O DVT and Pulm Emboli (hypercoagulable state?)Had normal Echo EF 60% and normal SPECT scan at [place] by Chuck recentlyContinue Cardizem 240 mg daily [...] 19, 2016 : 2:09 PM PAGER/CONTACT #: [phone] [facility] PROGRESS HNO ID: [id number] thor: Yimi Yuan (Computerized Mill Mill Recorder)Service: PharmacyAuthor Type: PharmacistType: Progress NotesFiled: 12/19/2016 11:27 [...] you have any questions, please contact pharmacy [phone].Age: 61 year oldAllergies:ALLERGIESAlle rgen Reactions- Clindamycin Hives- [...] (ug/mL)Date Value12/19/2016 16.111 37.9 (H) YIMI YUAN, ACCORDION TUNER Normal [facility] TSH Receptor Ab.on 7 TBI <1.0 Normal <1.0 [facility] Comment on above: Result Comment: This test was developed and its performance characteristics determined by [facility]'s Peter Correa [facility] Pathology and Laboratory Medicine [place] ([facility]).It has not been cleared or approved by the FDA. [facility] is regulated under CLIA as qualified to perform high-complexity testing.This test is used for clinical purposes. It should not be regarded as investigational or for research. Performed By: #### F REET3, TRAB ####[facility] [address] [place], [place] [phone] TSI <13 Normal <150 [facility] Comment on above: Result Comment: Resu lt rechecked. Performed By: #### F REET3, TRAB ####[facility] [address] [place], [place] [phone] Vancomycinon 12-19-2016 Vancomycin 16.1 ug/mL Normal 5.0-20.0 [facility] Comment on above: Result Comment: Refe rence ranges and high/low indicator flags are provided as general guidelines only. The treating physician must determine appropriate target levels/dosing based on the specific clinical situation. Performed By: #### V ANCRA ####[facility] [address] [place] [address] CBCon 12-18-2016 Erythrocyte distribution width Auto Ratio (RBC) 17.0 % High 11.5-15.0 [facility] Comment on above: Performed By: #### C BCDIF, PT, PTT, CMP, MG1 ####[place] [address] Erythrocytes (RBC) 4.33 10*6/uL Normal 3.90-5.20 [facility] Comment on above: Performed By: #### C BCDIF, PT, PTT, CMP, MG1 ####[place] [address] Hematocrit (HCT) 36.7 % Normal 36.0-46.0 [facility] Comment on above: Performed By: #### C BCDIF, PT, PTT, CMP, MG1 ####[place] [address] Hemoglobin mass conc (Bld) 11.8 g/dL Normal 11.5-15.5 [facility] Comment on above: Performed By: #### C BCDIF, PT, PTT, CMP, MG1 ####[place] [address] MCH 27.3 pG Normal 26.0-34.0 [facility] Comment on above: Performed By: #### C BCDIF, PT, PTT, CMP, MG1 ####[place] [address] MCHC mass conc (RBC) 32.2 g/dL Normal 30.5-36.0 [facility] Comment on above: Performed By: #### C BCDIF, PT, PTT, CMP, MG1 ####[place] [address] [address] MCV 84.8 fL Normal 80.0-100.0 [facility] Comment on above: Performed By: #### C BCDIF, PT, PTT, CMP, MG1 ####[facility] [address] Platelet mean volume (PMV) 10.1 fL Normal 9.0-12.7 [facility] Comment on above: Performed By: #### C BCDIF, PT, PTT, CMP, MG1 ####[facility] [address]obe[address] Platelets 267 10*3/uL Normal 150-400 [facility] Comment on above: Performed By: #### C BCDIF, PT, PTT, CMP, MG1 ####[facility] [address] [place] [phone] WBC (Leukocytes) 10.96 10*3/uL Normal 3.70-11.00 [facility] [facility] Comment on above: Performed By: #### C BCDIF, PT, PTT, CMP, MG1 ####[facility] Fkbmgbmlgy9668 [address] CONSULTon 12-18-2016 CONSULT HNO ID: [id number] thor: Elmer Castanon NetoService: Pulmonary DiseaseAuthor Type: PhysicianType: ConsultsFiled: 12/18/2016 1:10 PMNote Text:Respiratory InstituteCONSULTATION NOTEConsulting Physician: Dr. OrnelasAnam: Asthma exacerbationHPI: This is a 61 year [...] course of doxycycline, so she presented to [place] [facility]. Here, sheis being treated for her asthma flare and for a respiratory tractinfection with ceftriaxone and vancomycin. CT chest did not show a veryconvincing consolidation/pneumonia.NEDA VILLAGOMEZ MEDICAL HISTORYDiagnosis Date- DVT (deep venous thrombosis) (HCC) 1995 Rt lower leg- PE (pulmonary embolism)- Unspecified asthma(493.90)- Unspecified essential hypertensionPAST SURGICAL HISTORYProcedure Laterality Date- APPENDECTOMY- DELIVERY ONLY , low cervical- COLONOSCOP W/ OR W/O [facility] SPEC 01-09-13- DEBRIDE SKIN AND SUBQ TISSU [...] lb 10.8 oz) SpO2 92% BMI 43.1 kg/t5Hevngoo appearance: Well appearing, alert, in no acute [...] it to q12h.- Continue with Duoneb.Elmer Livingston MDCannon [facility] Hospitalember 2016 1:00 PM [facility] CONSULT HNO ID: [id number] thor: Santos Freyervice: Cardiovascular MedicineAuthor Type: PhysicianType: ConsultsFiled: 12/18/2016 11:13 AMNote Text:CONSULT: CARDIOLOGY SERVICESERVICE DATE: 12/18/2016SERVICE TIME: 10:46 AMCONSULTING PHYSICIAN: ANTHONY VillavicencioCP: Moreno Donnlely MDATTENDING: Kiara Mccabe FOR CONSULT: Arrhythmias /AF [...] , low cervical- COLONOSCOP W/ OR W/O [facility] SPEC 01-09-13- DEBRIDE SKIN AND SUBQ TISSU [...] coated (ASPIRIN, ENTERIC COATED) 325 mg EC twxyhc7912/15/2016 at 0700 Yes YesSig: Take 325 mg by mouth once daily.diltiazem CD (CARDIZEM CD) 180 mg 24 hr capsule 12/15/2016 at 1200 Yes YesSig: Take 180 mg by mouth once daily.doxycycline hyclate (VIBRAMYCIN) 100 mg capsule 12/15/2016 at 0700 Yes YesSig: Take 100 mg by mouth twice daily. 12/17/16 AM last dosefluticasone (FLONASE) 50 mcg/actuation nasal spray 12/15/2016 at 0700 YesYesSig: Use 1 [place] in each nostril twice daily.fluticasone-salmeter ol (ADVAIR DISKUS) 500-50 mcg/dose dsdv 12/15/2016 [id number] Yes YesSig: Inhale 1 Puff as instructed [...] BP Temp Temp src Pulse Resp SpO2 Ytxqcs91/04/17 1015 140/75 37.3 ?C (99.1 ?F) Oral [...] - - 93 18 96 % -12/17/16 192 - - - 92 18 - -12/17/16 [...] NSR with PACsPast 72 Hour Labs:Recent Labs 12/17/1703725CK -- -- -- 62TROPT -- -- -- [...] EF 60% and normal SPECT scan at [place] by Chuck recentlyASSESSMENT AND PLAN:I will D/C [...] 18, 2016 : 10:46 AM PAGER/CONTACT #: [phone] Normal [facility] Comp Metabolic Panelon 12-18 Alanine aminotransferase (ALT) 31 U/L Normal 0-45 [facility] Comment on above: Performed By: #### C BCDIF, PT, PTT, CMP, MG1 ####[facility] [address] [place] [address] Albumin 3.5 g/dL Normal 3.5-5.0 [facility] Comment on above: Performed By: #### C BCDIF, PT, PTT, CMP, MG1 ####[facility] [address] [place] [address] Alkaline phosphatase (ALP) 75 U/L Normal 40-150 [facility] Comment on above: Performed By: #### C BCDIF, PT, PTT, CMP, MG1 ####[facility] [address] [place] [address] Anion gap 18 mmol/L High 0-15 [facility] Comment on above: Performed By: #### C BCDIF, PT, PTT, CMP, MG1 ####[facility] [address] [place] [address] Aspartate aminotransferase (AST) 15 U/L Normal 7-40 [facility] Comment on above: Performed By: #### C BCDIF, PT, PTT, CMP, MG1 ####[facility] [address] [place] [address] Bilirubin (total) 0.4 mg/dL Normal 0.0-1.5 [facility] Comment on above: Performed By: #### C BCDIF, PT, PTT, CMP, MG1 ####[facility] [address]tf[address] [place] [address] Calcium 9.5 mg/dL Normal 8.5-10.5 [facility] Comment on above: Performed By: #### C BCDIF, PT, PTT, CMP, MG1 ####[facility] [address] [place] [address] Chloride 90 mmol/L Low 98-110 [facility] Comment on above: Performed By: #### C BCDIF, PT, PTT, CMP, MG1 ####[facility] Mnlyhebmkj1244 [place] [address] CO2 22 mmol/L Low 23-32 [facility] Comment on above: Performed By: #### C BCDIF, PT, PTT, CMP, MG1 ####[facility] [place] [address] Creatinine 1.41 mg/dL High 0.70-1.40 [facility] Comment on above: Performed By: #### C BCDIF, PT, PTT, CMP, MG1 ####[facility] [address] [place] [address] eGFR (non-black) 38 . Normal [facility] Comment on above: Result Comment: eGFR (Estimated [...] #### C BCDIF, PT, PTT, CMP, MG1 ####[facility] [address] [place] [address] eGFR (non-black) 46 mL/min/{1.73_m2} Normal [facility] Comment on above: Performed By: #### C BCDIF, PT, PTT, CMP, MG1 ####[facility] [address]rgzrlxpx25[address] [place] [address] Glucose mass conc 224 mg/dL High 65-100 [facility] Comment on above: Performed By: #### C BCDIF, PT, PTT, CMP, MG1 ####[facility] [address] [place] [address] Potassium molar conc 4.0 mmol/L Normal 3.5-5.0 [facility] Comment on above: Performed By: #### C BCDIF, PT, PTT, CMP, MG1 ####[facility] [address] [place] [address] Protein 6.2 g/dL Normal 6.0-8.4 [facility] Comment on above: Performed By: #### C BCDIF, PT, PTT, CMP, MG1 ####[facility] Plflaigbci66[address] [place] [address] Sodium 130 mmol/L Low 132-148 [facility] Comment on above: Performed By: #### C BCDIF, PT, PTT, CMP, MG1 ####[facility] [address]elzxw95[address] [place] [address] Urea nitrogen 44 mg/dL High 8-25 [facility] Comment on above: Performed By: #### C BCDIF, PT, PTT, CMP, MG1 ####[facility] [address] [place] [address] Free T4on 12-18-2016 Thyroxine (T4) free 1.9 ng/dL High 0.9-1.7 [facility] Comment on above: Performed By: #### C BCDIF, PT, PTT, CMP, MG1 ####[facility] [address] [place] [address] NT Pro BNPon 12-18-2016 PRO B Natr Peptide 789 pg/mL High <125 [facility] Comment on above: Performed By: #### C BCDIF, PT, PTT, CMP, MG1 ####[facility] [address] [place] [address] NURSING PROGon 12-18-2016 NURSING PROG HNO ID: [id number] thor: Maritza (Rn) Delma, RNService: (none)Author Type: Registered NurseType: Nursing Progress NoteFiled: 12/18/2016 6:24 PMNote Text: Nursing Progress NotePatient Name: Laura StarkMRN: [id number] Location[facility]0241/[id number]___ Daily Note:714- Bedside report received. Pt resting in bed. [...] note was completed by: Maritza Nguyễn RN [facility] NURSING PROG HNO ID: [id number] thor: Ernestina (Rn) LEVI Burgoservice: (none)Author Type: Registered NurseType: Nursing Progress NoteFiled: 12/18/2016 1:18 AMNote Text: Nursing Progress NotePatient Name: Laura StarkMRN: [id number] Location[facility]0/[id number]___ Daily Note:PCNA informed RN of tachycardia during routine vital signs. Pt rate 160bpm at 0101. Dr. Nugent notified- order for stat EKG and to give POcardizem now. Dr. Nugent called back at 0112 with EKG results of AtrialFibrillation with rapid ventricular response and possible inferiorsubendocardial injury. Verbal order to transfer patient to [address] [place] [address].This note was completed by: Ernestina Burgos RN [facility] PROGRESSon 12-18-2016 PROGRESS HNO ID: [id number] thor: Gaurang Antonio (Pharmacist)Service: PharmacyAuthor Type: PharmacistType: [...] you have any questions, please contact pharmacy [phone].Age: 61 year oldAllergies:ALLERGIESAlle rgen Reactions- Clindamycin Hives- [...] 33 (H) Creatinine (mg/dL)Date Value12/18/2016 1.41 (H)12/17/2016 1.2211 1.11 WBC (k/uL)Date Value12/18/2016 10.9611 9.21102/16/2016 8.34 Vancomycin Levels:Vancomycin, result (ug/mL)Date Value12/17/2016 37.9 (H) Gaurang Antonio Pharmacist [facility] PROGRESS HNO ID: [id number] thor: Kiara Fleming: General Internal MedicineAuthor Type: PhysicianType: Progress NotesFiled: 12/18/2016 12:31 PMNote Text:INTERNAL MEDICINE PROGRESS NOTEADMITTING PHYSICIAN: Kiara SternJECTARAVINDCHIALENA COMPLAINT: Feeling better then yday but still [...] PRNINTERVAL HISTORY OF PRESENT ILLNESS: Transferred to [facility] due to rapidafib, now in NSR. No n/v/d.No orthopnea, pnd,cpain, fever, chills.Consult notes reviewed.OBJECTIVEPHYSICAL EXAM:Blood pressure 140/75, pulse 99, temperature 37.3 ?C (99.1 ?F),temperature source Oral, resp. rate 20, height 157.5 cm (5' 2), gcaghf701.2 kg (238 lb 8.6 oz), SpO2 97 [...] NSR,Cardio eval.SIGNATURE: Kiara Nugent MD PATIENT NAME: Lauar Stark PAGER/CONTACT #: [facility] PROGRESS HNO ID: [id number] thor: Rolo Del Castillo (Pharmacist)Service: PharmacyAuthor Type: [...] you have any questions, please contact pharmacy [id number].Age: 61 year oldAllergies:ALLERGIESAlle rgen Reactions- Clindamycin Hives- [...] 33 (H)12/15/2016 33 (H) Creatinine (mg/dL)Date Value12/17/2016 1.2211 1. 1.12 WBC (k/uL)Date Value12/17/2016 9.21102/16/2016 8.34102/15/2016 9.37 Vancomycin Levels:Vancomycin, result (ug/mL)Date Value12/17/2016 37.9 (H) Rolo Del Castillo, Pharmacist Normal [facility] TSHon 12-18-2016 Thyroid stimulating hormone (TSH) 0.242 uU/mL Low 0.400-5.50 0 [facility] Comment on above: Performed By: #### C BCDIF, PT, PTT, CMP, MG1 ####[facility] [address] [place] [address] Vancomycinon 12-18-2016 Vancomycin 37.9 ug/mL High 5.0-20.0 [facility] Comment on above: Result Comment: Refe rence ranges and high/low indicator flags are provided as general guidelines only. The treating physician must determine appropriate target levels/dosing based on the specific clinical situation. Performed By: #### C BCDIF, PT, PTT, CMP, MG1 ####[facility] [address]vx[address]jmik[address] [place] [address] CBCon 12-17-2016 Erythrocyte distribution width Auto Ratio (RBC) 17.2 % High 11.5-15.0 [facility] Comment on above: Performed By: #### C BCDIF, PT, PTT, CMP, MG1 ####[facility] [address] [place] [address] Erythrocytes (RBC) 4.50 10*6/uL Normal 3.90-5.20 [facility] Comment on above: Performed By: #### C BCDIF, PT, PTT, CMP, MG1 ####[facility] [address]cxscf10[address] [place] [address] Hematocrit (HCT) 38.7 % Normal 36.0-46.0 [facility] Comment on above: Performed By: #### C BCDIF, PT, PTT, CMP, MG1 ####[facility] [address]wbx04[address] [place] [address] Hemoglobin mass conc (Bld) 12.2 g/dL Normal 11.5-15.5 [facility] Comment on above: Performed By: #### C BCDIF, PT, PTT, CMP, MG1 ####[facility] [address] [place] [address] MCH 27.1 pG Normal 26.0-34.0 [facility] Comment on above: Performed By: #### C BCDIF, PT, PTT, CMP, MG1 ####[facility] [address]fh[address] [place] [address] MCHC mass conc (RBC) 31.5 g/dL Normal 30.5-36.0 [facility] Comment on above: Performed By: #### C BCDIF, PT, PTT, CMP, MG1 ####[facility] Gmutghwvhx6450 [address] MCV 86.0 fL Normal 80.0-100.0 [facility] Comment on above: Performed By: #### C BCDIF, PT, PTT, CMP, MG1 ####[facility] Ejztldhwtr1140 [address] Platelet mean volume (PMV) 10.3 fL Normal 9.0-12.7 [facility] Comment on above: Performed By: #### C BCDIF, PT, PTT, CMP, MG1 ####[facility] Uthljiwugz8509 [address] Platelets 266 10*3/uL Normal 150-400 [facility] Comment on above: Performed By: #### C BCDIF, PT, PTT, CMP, MG1 ####[facility] Gfmfzruetc6932 [address] WBC (Leukocytes) 9.21 10*3/uL Normal 3.70-11.00 [facility] Comment on above: Performed By: #### C BCDIF, PT, PTT, CMP, MG1 ####[facility] Lzashhpoar4571 [address] CONSULTon 12-17-2016 CONSULT HNO ID: [id number] thor: Emeterio Olivera: Pulmonary DiseaseAuthor Type: PhysicianType: ConsultsFiled: 12/17/2016 3:44 PMNote Text:[facility] Respiratory [place] Consultation Note, 12/17/2016When I stopped in to consult with patient, PICC team was around bedside,placing sterile drapes, in preparation of PICC line placement.I excused myself, and will try to return later today to completeconsultation.Bhupendra Braxton MD, [facility] [address] [address]Y: [phone]: [phone] [facility] CONSULT PROGon 12-17-2016 CONSULT PROG HNO ID: [id number] thor: PARVIN Roldanervice: Infectious DiseaseAuthor Type: PhysicianType: [...] rashesNo joint inflammationNeck suppleLines okNo CVATLabs:Recent Labs 12/17/1703WBC 9.21 8.34 9.37HB 12.2 12.9 13.3HCT 38.7 41.5 42.7PLT 266 293 312INR -- -- 1.0APTT -- -- <20.0*NA 134 137 136K 4.5 3.3* 3.6CHLOR 94* 92* 91*CO2 23 23 24BUN 35* 33* 33*CREAT 1.22 1.11 1.12Microbiology data: reviewedImaging data: Du McginnisANTHONYager: date of service: 12/17/2016Time of service: 3:39 PMThis note is not final until Authenticated by responsible provider. Normal [facility] Comp Metabolic Panelon 12-17 Alanine aminotransferase (ALT) 30 U/L Normal 0-45 [facility] Comment on above: Performed By: #### C BCDIF, PT, PTT, CMP, MG1 ####[facility] [address] [place] [address] Albumin 3.8 g/dL Normal 3.5-5.0 [facility] Comment on above: Performed By: #### C BCDIF, PT, PTT, CMP, MG1 ####[facility] [address] [place] [address] Alkaline phosphatase (ALP) 82 U/L Normal 40-150 [facility] Comment on above: Performed By: #### C BCDIF, PT, PTT, CMP, MG1 ####[facility] [address] [place] [address] Anion gap 17 mmol/L High 0-15 [facility] Comment on above: Performed By: #### C BCDIF, PT, PTT, CMP, MG1 ####[facility] [address] [place] [address] Aspartate aminotransferase (AST) 11 U/L Normal 7-40 [facility] Comment on above: Performed By: #### C BCDIF, PT, PTT, CMP, MG1 ####[facility] [address] [place] [address] Bilirubin (total) 0.4 mg/dL Normal 0.0-1.5 [facility] Comment on above: Performed By: #### C BCDIF, PT, PTT, CMP, MG1 ####[facility] [address] [place] [address] Calcium 9.9 mg/dL Normal 8.5-10.5 [facility] Comment on above: Performed By: #### C BCDIF, PT, PTT, CMP, MG1 ####[facility] [address] [place] [address] Chloride 94 mmol/L Low 98-110 [facility] Comment on above: Performed By: #### C BCDIF, PT, PTT, CMP, MG1 ####[facility] Hzmglzunas4377 [place] [address] CO2 23 mmol/L Normal 23-32 [facility] Comment on above: Performed By: #### C BCDIF, PT, PTT, CMP, MG1 ####[facility] [address]ibqkkw34[address] [place] [address] Creatinine 1.22 mg/dL Normal 0.70-1.40 [facility] Comment on above: Performed By: #### C BCDIF, PT, PTT, CMP, MG1 ####[place] [address] eGFR (non-black) 45 . Normal [facility] Comment on above: Result Comment: eGFR (Estimated [...] #### C BCDIF, PT, PTT, CMP, MG1 ####[facility] [address] [place] [address] eGFR (non-black) 54 mL/min/{1.73_m2} Normal [facility] Comment on above: Performed By: #### C BCDIF, PT, PTT, CMP, MG1 ####[place] [address] Glucose mass conc 218 mg/dL High 65-100 [facility] Comment on above: Performed By: #### C BCDIF, PT, PTT, CMP, MG1 ####[facility] [address] [place] [address] Potassium molar conc 4.5 mmol/L Normal 3.5-5.0 [facility] Comment on above: Performed By: #### C BCDIF, PT, PTT, CMP, MG1 ####[facility] [address]karqng3[address] [place] [address] Protein 6.4 g/dL Normal 6.0-8.4 [facility] Comment on above: Performed By: #### C BCDIF, PT, PTT, CMP, MG1 ####[facility] [address]xy[address]wdrh[address] [place] [address] Sodium 134 mmol/L Normal 132-148 [facility] Comment on above: Performed By: #### C BCDIF, PT, PTT, CMP, MG1 ####[facility] [address] [place] [address] Urea nitrogen 35 mg/dL High 8-25 [facility] Comment on above: Performed By: #### C BCDIF, PT, PTT, CMP, MG1 ####[facility] [address]jd[address] [place] [address] PROCEDUREon 12-17-2016 PROCEDURE HNO ID: [id number] thor: Brittnee (Rn) Javad, RNService: RadiologyAuthor Type: Registered NurseType: ProceduresFiled: 12/17/2016 3:28 PMNote Text:PICC NURSE INSERTION NOTEDATE OF PROCEDURE: December 17, 2016TIME OF PROCEDURE: 1500ORDERING PHYSICIAN: GoyalJASEED CONSENT: Obtained per hospital policy.INDICATION FOR LINE [...] Time Out: YESSign Out Discussion: Alana Farnsworth RNCATHEWILLIAM PLACEMENTBrand: Bard Lot: [id number] of Lumens: 1Type of PICC: Power Injectable [...] NoneCOMPLICATIONS: NonePatient Education Materials: Given to patientThe [facility] Central Line Insertion checklist, attached to theCentral Line-Associated Bloodstream Infection Prevention Policy, wasutilized during this procedure.QUESTIONS or PROBLEMS: Call [phone]: Brittnee Farnsworth RN PATIENT NAME: Laura StarkDATE: December 17, 2016 : 3:16 PM PAGER/CONTACT PHONE: [facility] PROGRESSon 12-17-2016 PROGRESS HNO ID: [id number] Author: Diann RivasRn) MARIO Dinero Service: (none) Author Type: Registered Nurse Type: Progress Notes Filed: 12/17/2016 4:16 PM Note Text: Student nurse documentation has been reviewed. [facility] PROGRESS HNO ID: [id number] thor: Brittnee (Rn) LEVI Farnsworthervice: RadiologyAuthor Type: Registered NurseType: Progress NotesFiled: 12/17/2016 [...] Signed By: Brittnee Farnsworth RN In Department: [facility] PROGRESS HNO ID: [id number] thor: Kiara Watsone: General Internal MedicineAuthor Type: PhysicianType: Progress NotesFiled: 12/17/2016 4:39 PMNote Text:INTERNAL MEDICINE PROGRESS NOTESERVICE DATE: 12/17/2016ADMITTING PHYSICIAN: Kiara ResendizCHIALENA COMPLAINT: Feeling better then yday but still [...] hrs: BP Temp Temp src Pulse Resp [id number]/17/16 1600 143/77 36.7 ?C (98.1 ?F) Oral [...] 2345 - - - 97 18 98 %12/16/16 2018 - - - 88 16 97 %12/16/16 [...] 17, 2016 : 4:34 PM PAGER/CONTACT #: [facility] PROGRESS HNO ID: [id number] Author: Ottoniel LEON Service: (none) Author Type: (none) Type: Progress Notes Filed: 12/17/2016 8:40 AM Note Text: Received report from operations supervisor 2nd shift MARIO Brownlee. [facility] ALLIED HEALTHon 12-16-2016 ALLIED HEALTH HNO ID: [id number] thor: LEVI Reynoso Rnervice: OstomyAuthor Type: Registered NurseType: Allied HealthFiled: 12/16/2016 12:55 PMNote Text:Wound Care Consult TeamMRN: [id number] NAME: Laura Stark is a 61 year [...] has been on PO doxycycline since discharge fromhospital. Bilateral feet with chronic changes noted, blanching [...] please feelfree to re-consult me if necessary. [facility] ID: [id number] thor: Yue Estrada (Lsw), RNService: (none)Author Type: Social WorkerType: Care Mgt Initial AssessmentFiled: 12/16/2016 3:21 PMNote Text:CARE MANAGEMENT: ASSESSMENT AND DISCHARGE PLANSERVICE DATE: 12/16/2016SERVICE TIME: 3:10 PMPRIMARY CARE PHYSICIAN:Moreno Donnelly MD - confirmed with patient. RURBZOMNI STATUS: InpatientPOTENTIAL DISCHARGE PLANSHomeHome CareOutpatient TherapyTo Be DeterminedPatient/Represen tative Stated Goals: Pt would like to feel better, as shehas been feeling sick for some time, and return home to her family.Needs Prior to Discharge: To Be DeterminedHealth Insurance: Medical [place] ServicesLiving Arrangement: HomeLives With: Spouse and Daughter Daughter is 20yrs old and has multiplehandicaps per pt.Financial Resources: RetiredPrimary Contact:Extended Emergency Contact InformationPrimary Emergency Contact: Nixon StarkAddress: [address] [place] [address] [facility] Zytfalbo: SpouseSupportive: YesOther Important Patient Contacts: NoneCAREGIVER ASSESSMENT:Caregiver [...] for maintenance medications and [facility] in [place] for shortterm meds.Food Concerns:In the Last Month, Have You had Trouble Getting Food? No trouble gettingfoodDuring the Last Month, Have You Worried Whether Your Food Would Run OutBefore You Had Enough Money to Buy More? NoPsychosocial Needs: NoneUTILIZATION:Last Admission Date: noneIs this Within the Past 30 days? NoHas the Patient Been in a Custodial Facility in the Past 30 days?N/AFREEDOM OF CHOICE EXPLAINED:N/AHANDOFF COMMUNICATION:Pt not yet ready for d/c.Sw reviewed [...] for any d/c planning needs.SIGNATURE: MARYURI Vera, PIANO CASE MAKER PATIENT NAME: Laura StarkDATE: December 16, 2016 : 3:10 PM PAGER/CONTACT #: [phone] Normal [facility] CBC and Differentialon 12-16 Abs Baso <0.03 Normal <0.11 [facility] Comment on above: Performed By: #### C BCDIF, PT, PTT, CMP, MG1 ####[facility] [address]og[address] [place] [address] Abs [place] 0.27 k/uL Normal <0.87 [facility] Comment on above: Performed By: #### C BCDIF, PT, PTT, CMP, MG1 ####[facility] [address]pfzthlh25[address] [place] [address] Abs Neut 7.64 k/uL High 1.45-7.50 [facility] Comment on above: Performed By: #### C BCDIF, PT, PTT, CMP, MG1 ####[facility] Epfjpvnmtu5[address] [place] [address] Basophils/100 WBC Auto (Bld) 0.1 % [facility] Comment on above: Performed By: #### C BCDIF, PT, PTT, CMP, MG1 ####[facility] [address]bt[address] [place] [address] Eosinophils 10*3/uL Normal <0.46 [facility] Comment on above: Performed By: #### C BCDIF, PT, PTT, CMP, MG1 ####[facility] Hdnlzrswbt1604 [address] Eosinophils/100 leukocytes 0.0 % Normal [facility] Comment on above: Performed By: #### C BCDIF, PT, PTT, CMP, MG1 ####[facility] [address] [place] [address] Erythrocyte distribution width Auto Ratio (RBC) 17.1 % High 11.5-15.0 [facility] Comment on above: Performed By: #### C BCDIF, PT, PTT, CMP, MG1 ####[facility] [address] [place] [address] Erythrocytes (RBC) 4.81 10*6/uL Normal 3.90-5.20 [facility] Comment on above: Performed By: #### C BCDIF, PT, PTT, CMP, MG1 ####[place] [address] Hematocrit (HCT) 41.5 % Normal 36.0-46.0 [facility] Comment on above: Performed By: #### C BCDIF, PT, PTT, CMP, MG1 ####[place] [address] Hemoglobin mass conc (Bld) 12.9 g/dL Normal 11.5-15.5 [facility] Comment on above: Performed By: #### C BCDIF, PT, PTT, CMP, MG1 ####[place] [address] Lymphocytes 0.42 10*3/uL Low 1.00-4.00 [facility] Comment on above: Performed By: #### C BCDIF, PT, PTT, CMP, MG1 ####[place] [address] Lymphocytes/100 leukocytes 5.0 % Normal [facility] Comment on above: Performed By: #### C BCDIF, PT, PTT, CMP, MG1 ####[place] [address] MCH 26.8 pG Normal 26.0-34.0 [facility] Comment on above: Performed By: #### C BCDIF, PT, PTT, CMP, MG1 ####[facility] [address] [place] [address] MCHC mass conc (RBC) 31.1 g/dL Normal 30.5-36.0 [facility] Comment on above: Performed By: #### C BCDIF, PT, PTT, CMP, MG1 ####[facility] [address]o5[address] [place] [phone] MCV 86.3 fL Normal 80.0-100.0 [facility] Comment on above: Performed By: #### C BCDIF, PT, PTT, CMP, MG1 ####[facility] [address]csp[address] [place] [address] Monocytes/100 leukocytes 3.2 % Normal [facility] Comment on above: Performed By: #### C BCDIF, PT, PTT, CMP, MG1 ####[facility] Yoopphkdxa8296 [address] Neutrophils/100 WBC Auto (Bld) 91.7 % Normal [facility] Comment on above: Performed By: #### C BCDIF, PT, PTT, CMP, MG1 ####[facility] Rzdrwisuyw2599 [address] Platelet mean volume (PMV) 10.3 fL Normal 9.0-12.7 [facility] Comment on above: Performed By: #### C BCDIF, PT, PTT, CMP, MG1 ####[facility] Scrgjxcxtu4403 [address] Platelets 293 10*3/uL Normal 150-400 [facility] Comment on above: Performed By: #### C BCDIF, PT, PTT, CMP, MG1 ####[facility] [address] [place] [phone] WBC (Leukocytes) 8.34 10*3/uL Normal 3.70-11.00 [facility] Comment on above: Performed By: #### C BCDIF, PT, PTT, CMP, MG1 ####[facility] [address] [place] [phone] CONSULTon 12-16-2016 CONSULT HNO ID: [id number] thor: PARVIN Roldanervice: Infectious DiseaseAuthor Type: PhysicianType: ConsultsFiled: 12/17/2016 3:38 PMNote Text:ID CONSULTPRIMARY CARE PHYSICIAN: PARVIN OsegueraUBJECTIVECHIALENA COMPLAINT: CoughShortness of BreathFeverHPI: This is a 61 year old female w past medical history of asthma, DVTand PE not currently on any anticoagulation presenting to the ER withcough since October. She has seen pulmonology and was admitted to thehospital December 06 and saw infectious disease. Her [...] follow-up with Dr. Cardenas in infectious disease [facility] before the appt and decided to come to the ED. She was seen by Katie gomez per the patient.?PAST MEDICAL HISTORYDiagnosis Date- DVT (deep venous thrombosis) (HCC) 1995 Rt lower leg- PE (pulmonary embolism)- Unspecified asthma(493.90)- Unspecified essential hypertensionPAST SURGICAL HISTORYProcedure Laterality Date- APPENDECTOMY- DELIVERY ONLY , low cervical- COLONOSCOP W/ OR W/O [facility] SPEC 01-09-13- DEBRIDE SKIN AND SUBQ TISSU [...] (ASPIRIN, ENTERIC COATED) 325 mg EC tablet Otmn259 mg by mouth once daily. Disp: Rfl: [...] (FLONASE) 50 mcg/actuation nasal spray Use 1 [place] in eachnostril twice daily. Disp: Rfl: 12/15/2016 [...] hrs: BP Temp Temp src Pulse Resp [id number]/16/16 1645 - - - - 16 -12/16/16 [...] ?C (98.9 ?F) Oral (!) 107 20 -12/15/160 - - - (!) 102 20 96 [...] 16, 2016 : 6:24 PM PAGER/CONTACT #: [phone] Normal [facility] Comp Metabolic Panelon 12-16 Alanine aminotransferase (ALT) 31 U/L Normal 0-45 [facility] Comment on above: Performed By: #### C BCDIF, PT, PTT, CMP, MG1 ####[facility] [address] [place] [address] Albumin 3.9 g/dL Normal 3.5-5.0 [facility] Comment on above: Performed By: #### C BCDIF, PT, PTT, CMP, MG1 ####[facility] [address] [place] [address] Alkaline phosphatase (ALP) 92 U/L Normal 40-150 [facility] Comment on above: Performed By: #### C BCDIF, PT, PTT, CMP, MG1 ####[facility] [address] [place] [address] Anion gap 22 mmol/L High 0-15 [facility] Comment on above: Performed By: #### C BCDIF, PT, PTT, CMP, MG1 ####[facility] [address] [place] [address] Aspartate aminotransferase (AST) 12 U/L Normal 7-40 [facility] Comment on above: Performed By: #### C BCDIF, PT, PTT, CMP, MG1 ####[facility] [address] [place] [address] Bilirubin (total) 0.4 mg/dL Normal 0.0-1.5 [facility] Comment on above: Performed By: #### C BCDIF, PT, PTT, CMP, MG1 ####[facility] [address] [place] [address] Calcium 9.6 mg/dL Normal 8.5-10.5 [facility] Comment on above: Performed By: #### C BCDIF, PT, PTT, CMP, MG1 ####[facility] [address] [place] [address] Chloride 92 mmol/L Low 98-110 [facility] Comment on above: Performed By: #### C BCDIF, PT, PTT, CMP, MG1 ####[facility] [address] [place] [address] CO2 23 mmol/L Normal 23-32 [facility] Comment on above: Performed By: #### C BCDIF, PT, PTT, CMP, MG1 ####[facility] [address] [place] [address] Creatinine 1.11 mg/dL Normal 0.70-1.40 [facility] Comment on above: Performed By: #### C BCDIF, PT, PTT, CMP, MG1 ####[facility] [address] [place] [address] eGFR (non-black) 50 . Normal [facility] Comment on above: Result Comment: eGFR (Estimated [...] #### C BCDIF, PT, PTT, CMP, MG1 ####[facility] [address] [place] [address] eGFR (non-black) mL/min/{1.73_m2} Normal [facility] Comment on above: Performed By: #### C BCDIF, PT, PTT, CMP, MG1 ####[facility] [address] [place] [address] Glucose mass conc 172 mg/dL High 65-100 [facility] Comment on above: Performed By: #### C BCDIF, PT, PTT, CMP, MG1 ####[facility] [address] Potassium molar conc 3.3 mmol/L Low 3.5-5.0 [facility] Comment on above: Performed By: #### C BCDIF, PT, PTT, CMP, MG1 ####[facility] [address]ui[address] Protein 7.1 g/dL Normal 6.0-8.4 [facility] Comment on above: Performed By: #### C BCDIF, PT, PTT, CMP, MG1 ####[facility] [address] [place] [phone] Sodium 137 mmol/L Normal 132-148 [facility] Comment on above: Performed By: #### C BCDIF, PT, PTT, CMP, MG1 ####[facility] [address] [place] [address] Urea nitrogen 33 mg/dL High 8-25 [facility] Comment on above: Performed By: #### C BCDIF, PT, PTT, CMP, MG1 ####[facility] [address]igv[address] HISTORY PHYSICALon HISTORY PHYSICAL HNO ID: [id number] thor: Kiara NugentService: General Internal MedicineAuthor Type: PhysicianType: HANDPFiled: 12/17/2016 5:54 AMNote Text:[facility]- History and PhysicalBOLAURA BAKER MDOB: 1955 AGE: 61 SEX: FMRN: [id number] ACCTNUM: [id number] [facility] [place] [facility] LOCATION: [id number] PHYSICIAN: Kiara Nugent M.D.ADMIT DATE: 12/15/2016CHIEF COMPLAINT: [...] muffled. Abdomen: Soft, obese,benign. Extremities: No edema. SERVICE CENTER REPRESENTATIVE: Nonfocal.IMPRESSION: A 61-year-old female admitted with acute exacerbation ofasthma with failure of therapy, history of hypertension, remote PE.PLAN: Admit as inpatient. IV vancomycin and Rocephin based on priorculture results. IV methylprednisolone. Monitor labs. Continue homemedications. Replace potassium. Continue aerosols. Further treatmentwill depend on the clinical course of the patient and input fromInfectious Disease specialist.Kiara Nugent M.D.Internal MedicineYG:[id number]: 12/16/2016 13:13:42T: 12/16/2016 23:07:58Job #: [id number] [facility] HISTORY PHYSICAL HNO ID: [id number] Author: Kiara Nugent Service: General Internal Medicine Author Type: Physician Type: HANDP Filed: 12/16/2016 9:07 AM Note Text: Pt seen and examined, Kiara Nugent MD December 16, 2016 9:02 AM [facility] NURSING PROGon 12-16-2016 NURSING PROG HNO ID: [id number] thor: Barbara Mendieta (Rn) LEVI Cortezervice: (none)Author Type: Registered NurseType: Nursing Progress NoteFiled: 12/16/2016 5:21 PMNote Text: Nursing Progress NotePatient Name: Laura StarkMRN: [id number] [place] [facility] [id number]-___ Daily Note:1715 Dr. Abdi called/ not able to get/ left message. Pt.requestingMucinex. Will await call back.This note was completed by: Barbara Cortez RN [facility] NURSING PROG HNO ID: [id number] thor: Barbara Del Cid) Dana RNService: (none)Author Type: Registered NurseType: Nursing Progress NoteFiled: 12/16/2016 11:12 AMNote Text: Nursing Progress NotePatient Name: Laura StarkMRN: [id number] Location: [facility] [place][id number]-___ 1100 In room with Kailey wound care nurse, checked pt. buttox region:which presents as moisture associate dermatitis; 6cm length X 0.5cm width.Kailey, stated to f/u with Inter-dry between buttox. There are no pressureulcers on feet, only a callus on R upper foot.This note was completed by: Barbara Cortez RN [facility] NUTRITIONon 12-16-2016 NUTRITION HNO ID: [id number] thor: Lamar Cesar) FerroService: Nutrition TherapyAuthor Type: Registered DietitianType: NutritionFiled: 12/16/2016 9:28 AMNote Text:NUTRITION THERAPY INITIAL ASSESSMENTSERVICE DATE: 12/16/2016SERVICE TIME: 0855RECOMMENDED [...] 107 kgResting Metabolic Rate: 1587Estimated kilocalorie needs: 1309-3792 kilocalories determined by 10-15kcal/kgEstimated protein needs: 54-80 grams determined by 20% of estimatedkilocalorie needs dosing weightEstimated fluid needs: 5236-4680 milliliters based on 1 mL per kcalNUTRITION [...] kg (236 lb) SpO2 100% BMI 43.16 kg/a0Eczcnb Labs 12/15/1716GLUC 172* 158*BUN 33* 33*CREAT 1.11 [...] StarkDATE: December 16, 2016 : 9:18 AM [facility] PROGRESSon 12-16-2016 PROGRESS HNO ID: [id number] thor: Rhonda Hickman (Pharmacist)Service: PharmacyAuthor Type: PharmacistType: [...] you have any questions, please contact pharmacy [phone].Age: 61 year oldAllergies:ALLERGIESAlle rgen Reactions- Clindamycin Hives- [...] 1.1111/02/2016 1.1201 1.11 WBC (k/uL)Date Value12/16/2016 8.3411 9.3701 6.70 Vancomycin Levels: No results found for: Tiesha Hickman, Pharmacist Normal [facility] APTTon 12-15-2016 aPTT s Low 23.0-32.4 [facility] Comment on above: Result Comment: Unfr actionated [...] laboratory APTT reagent in use throughout the [facility]. Performed By: #### C BCDIF, PT, PTT, CMP, MG1 ####[address] Blood Cultureon 12-15-2016 Bacteria culture Sp. Request/Comment: - The blood culture bottles are underfilled. Adding volume lower or higher than the 8 to 10 mL per bottle, which is the manufacturers recommended volume, may adversely affect the recovery and/or detection of organisms. 2.7MLCulture Result - No growth 5 days [facility] Comment on above: Performed By: #### T NT ####[place] [address] Bacteria culture Sp. Request/Comment: - The blood culture bottles are underfilled. Adding volume lower or higher than the 8 to 10 mL per bottle, which is the manufacturers recommended volume, may adversely affect the recovery and/or detection of organisms. 8.3MLCulture Result - No growth 5 days [facility] Comment on above: Performed By: #### T NT ####[address] [phone] CBC and Differentialon 12-15 Abs Baso <0.03 Normal <0.11 [facility] Comment on above: Performed By: #### C BCDIF, PT, PTT, CMP, MG1 ####[place] [address] Abs [place] 0.66 k/uL Normal <0.87 [facility] Comment on above: Performed By: #### C BCDIF, PT, PTT, CMP, MG1 ####[facility] [address] [place] [address] Abs Neut 8.02 k/uL High 1.45-7.50 [facility] Comment on above: Performed By: #### C BCDIF, PT, PTT, CMP, MG1 ####[place] [address] Basophils/100 WBC Auto (Bld) 0.2 % Normal [facility] Comment on above: Performed By: #### C BCDIF, PT, PTT, CMP, MG1 ####[place] [address] Eosinophils 10*3/uL Normal <0.46 [facility] Comment on above: Performed By: #### C BCDIF, PT, PTT, CMP, MG1 ####[place] [address] Eosinophils/100 leukocytes 0.0 % Normal [facility] Comment on above: Performed By: #### C BCDIF, PT, PTT, CMP, MG1 ####[place] [address] Erythrocyte distribution width Auto Ratio (RBC) 17.0 % High 11.5-15.0 [facility] Comment on above: Performed By: #### C BCDIF, PT, PTT, CMP, MG1 ####[place] [address] Erythrocytes (RBC) 4.97 10*6/uL Normal 3.90-5.20 [facility] Comment on above: Performed By: #### C BCDIF, PT, PTT, CMP, MG1 ####[address] [phone] Hematocrit (HCT) 42.7 % Normal 36.0-46.0 [facility] Comment on above: Performed By: #### C BCDIF, PT, PTT, CMP, MG1 ####[facility] [address] [place] [address] Hemoglobin mass conc (Bld) 13.3 g/dL Normal 11.5-15.5 [facility] Comment on above: Performed By: #### C BCDIF, PT, PTT, CMP, MG1 ####[place] [address] Lymphocytes 0.67 10*3/uL Low 1.00-4.00 [facility] Comment on above: Performed By: #### C BCDIF, PT, PTT, CMP, MG1 ####[place] [address] Lymphocytes/100 leukocytes 7.2 % Normal [facility] Comment on above: Performed By: #### C BCDIF, PT, PTT, CMP, MG1 ####[facility] [address] [place] [address] MCH 26.8 pG Normal 26.0-34.0 [facility] Comment on above: Performed By: #### C BCDIF, PT, PTT, CMP, MG1 ####[facility] [address] [place] [address] MCHC mass conc (RBC) 31.1 g/dL Normal 30.5-36.0 [facility] Comment on above: Performed By: #### C BCDIF, PT, PTT, CMP, MG1 ####[facility] [address] [place] [address] MCV 85.9 fL Normal 80.0-100.0 [facility] Comment on above: Performed By: #### C BCDIF, PT, PTT, CMP, MG1 ####[facility] [address] [place] [address] Monocytes/100 leukocytes 7.0 % Normal [facility] Comment on above: Performed By: #### C BCDIF, PT, PTT, CMP, MG1 ####[facility] [address] [place] [address] Neutrophils/100 WBC Auto (Bld) 85.6 % Normal [facility] Comment on above: Performed By: #### C BCDIF, PT, PTT, CMP, MG1 ####[facility] [address] [place] [address] Platelet mean volume (PMV) 10.0 fL Normal 9.0-12.7 [facility] Comment on above: Performed By: #### C BCDIF, PT, PTT, CMP, MG1 ####[facility] [address] [place] [address] Platelets 312 10*3/uL Normal 150-400 [facility] Comment on above: Performed By: #### C BCDIF, PT, PTT, CMP, MG1 ####[place] [address] WBC (Leukocytes) 9.37 10*3/uL Normal 3.70-11.00 [facility] Comment on above: Performed By: #### C BCDIF, PT, PTT, CMP, MG1 ####[place] [address] CK, Total and CKMBon 017 CKMB CK MB % not reported with CK <100 U/L. Normal 0.0-4.0 [facility] Comment on above: Performed By: #### C KCKMB ####[place] [address] Creatine kinase (CK) 62 U/L Normal 30-220 [facility] Comment on above: Performed By: #### C KCKMB ####[place] [address] MB 2.3 ng/mL Normal 0.0-8.8 [facility] Comment on above: Performed By: #### C KCKMB ####[facility] [address] [place] [address] CT CHEST WO IVCONon 12-16-[address] CHEST WO IVCON * * *Final Report* * *DATE OF EXAM: Dec 15 2016 7:58PM [place] 0541 - CT CHEST WO IVCON / REASON: Cough--Coughing * * * * Physician Interpretation * * * * EXAMINATION: CHEST CT WITHOUT CONTRAST: 80-0-62LXKNRVVX HISTORY: 61-year-old female with cough. MRSA. Escherichia [...] atria consistent with lipomatous hypertrophy of interatrial septum.[facility]cqa Specialist: ALBARO Transcribe Date/Time: Dec 15 2016 8:21PDictated by : THANG PARKER MDThis examination was interpreted and the report reviewed and electronically signed by: THANG PARKER MD on Dec 15 2016 8:32PM [id number] Normal [facility] Comp Metabolic Panelon 12-15 Alanine aminotransferase (ALT) 32 U/L Normal 0-45 [facility] Comment on above: Performed By: #### C BCDIF, PT, PTT, CMP, MG1 ####[facility] [address] [place], [place] [phone] Albumin 4.2 g/dL Normal 3.5-5.0 [facility] Comment on above: Performed By: #### C BCDIF, PT, PTT, CMP, MG1 ####[facility] [address] [place] [address] Alkaline phosphatase (ALP) 98 U/L Normal 40-150 [facility] Comment on above: Performed By: #### C BCDIF, PT, PTT, CMP, MG1 ####[facility] [address] [place] [address] Anion gap 21 mmol/L High 0-15 [facility] Comment on above: Performed By: #### C BCDIF, PT, PTT, CMP, MG1 ####[facility] [address] [place] [address] Aspartate aminotransferase (AST) 13 U/L Normal 7-40 [facility] Comment on above: Performed By: #### C BCDIF, PT, PTT, CMP, MG1 ####[place] [address] Bilirubin (total) 0.6 mg/dL Normal 0.0-1.5 [facility] Comment on above: Performed By: #### C BCDIF, PT, PTT, CMP, MG1 ####[place] [address] Calcium 10.2 mg/dL Normal 8.5-10.5 [facility] Comment on above: Performed By: #### C BCDIF, PT, PTT, CMP, MG1 ####[place] [address] Chloride 91 mmol/L Low 98-110 [facility] Comment on above: Performed By: #### C BCDIF, PT, PTT, CMP, MG1 ####[place] [address] CO2 24 mmol/L Normal 23-32 [facility] Comment on above: Performed By: #### C BCDIF, PT, PTT, CMP, MG1 ####[facility] [address] [place] [address] Creatinine 1.12 mg/dL Normal 0.70-1.40 [facility] Comment on above: Performed By: #### C BCDIF, PT, PTT, CMP, MG1 ####[facility] [address] [place] [address] eGFR (non-black) 49 . Normal [facility] Comment on above: Result Comment: eGFR (Estimated [...] #### C BCDIF, PT, PTT, CMP, MG1 ####[facility] [address] [place] [address] eGFR (non-black) 60 mL/min/{1.73_m2} Normal [facility] Comment on above: Performed By: #### C BCDIF, PT, PTT, CMP, MG1 ####[facility] [address] [place] [address] Glucose mass conc 158 mg/dL High 65-100 [facility] Comment on above: Performed By: #### C BCDIF, PT, PTT, CMP, MG1 ####[facility] [address] [place] [address] Potassium molar conc 3.6 mmol/L Normal 3.5-5.0 [facility] Comment on above: Performed By: #### C BCDIF, PT, PTT, CMP, MG1 ####[facility] [address] [place] [address] Protein 7.5 g/dL Normal 6.0-8.4 [facility] Comment on above: Performed By: #### C BCDIF, PT, PTT, CMP, MG1 ####[facility] [address] [place] [address] Sodium 136 mmol/L Normal 132-148 [facility] Comment on above: Performed By: #### C BCDIF, PT, PTT, CMP, MG1 ####[facility] [address] [place] [phone] Urea nitrogen 33 mg/dL High 8 [facility] Comment on above: Performed By: #### C BCDIF, PT, PTT, CMP, MG1 ####[facility] [address] [place] [phone] ED NOTEon 12-15-2016 ED NOTE HNO ID: [id number] Author: Reyna RivasRn) MARIO Storm Service: (none) Author Type: Registered Nurse Type: ED Notes Filed: 12/15/2016 9:54 PM Note Text: Calling to ask nursing asbestos pipe supervisor for bed change due to precautions. [facility] ED NOTE HNO ID: [id number] Author: Reyna RivasRn) Emeterio, RN Service: (none) Author Type: Registered Nurse Type: ED Notes Filed: 12/15/2016 9:15 PM Note Text: Up to restrmarisol bass PA updated pt on plan of care. [facility] ED NOTE HNO ID: [id number] Author: Reyna RivasRn) Emeterio, RN Service: (none) Author Type: Registered Nurse Type: ED Notes Filed: 12/15/2016 8:06 PM Note Text: Dr. Vicente at bs to speak with patient. He is aware that her IV infiltrated in PE study. IV removed. [facility] ED NOTE HNO ID: [id number] Author: Reyna Del Cid) MARIO Storm Service: (none) Author Type: Registered Nurse Type: ED Notes Filed: 12/15/2016 7:27 PM Note Text: CT staff at bs and 18g won't flush. MARIO Mendoza at bs to attempt new placement of IV. [facility] ED NOTE HNO ID: [id number] Author: Kendal RivasRn) Bryan Dinero RN Service: (none) Author Type: Registered Nurse Type: ED Notes Filed: 12/15/2016 6:59 PM Note Text: catscan iv blew in left ac [facility] ED PROV NOTEon 12-15-2016 ED PROV NOTE HNO ID: [id number] thor: Nixon Vicente, MDService: Emergency MedicineAuthor Type: PhysicianType: ED Provider NotesFiled: 12/15/2016 9:50 PMNote Text:ED Provider NotePatient Name: Laura StarkMRN: [id number] DATE: 12/15/16HistoryPatient presents with:CoughShortness of BreathFeverHPIThis is [...] , low cervical- COLONOSCOP W/ OR W/O [facility] SPEC 01-09-13- DEBRIDE SKIN AND SUBQ TISSU [...] at time of disposition: stableSIGNATURE: [place] ([place])02/15/16 2127Attending NoteI have personally performed a face to face assessment of the patient andhave reviewed the PA/BUILDING TRADES INSTRUCTOR note. My starkey findings include:Assessment/Plan are this [...] the other symptoms would includelow-grade temperatures. Her client service coordinator requested that she seesinfectious disease specialist at this hospital and patient presents here.The case was discussed with him and patient will be otherwise admitted forfurther evaluation. She does have a mild elevated lactate. CT was donethat was unremarkable. The CT was attempted to be done as a PE studyhowever the contrast infiltrated.Other additions or changes: NoneSignature: ALICJA Nguyenate: 12/15/2016Time: 9:48 PMMatthew Ottoniel Vicente MD12/15/16 2150 [facility] HOSPon 12-15-2016 HOSP Patient:Bowen Stark rryeny MMRN: Height:5' 2(1.575 m)Weight:231 lb 0.7 oz (104.8 kg)Outpatient Medications as of 12/27/16:predniSONE (DELTASONE) 20 mg tabletdoxycycline hyclate (VIBRAMYCIN) 100 mg capsuleguaiFENesin (MUCINEX) 1,200 mg Rh86vbbmwdjajcl-qligzkezgl (ADVAIR DISKUS) 500-50 mcg/dose dsdvipratropium-albuterol (DUONEB) 0.5 [...] 3.5HEMA* 37.7 % 12/27/2016 46.0 36.0Progress Notes ([facility] CAT SCAN):Cary Covarrubias, CT, CT 12/15/2016 7:59 PM Sign at close encounter Radiology Service Progress NotePATIENT NAME: Laura StarkMRN: [id number] OF SERVICE: December 15, 2016TIME: 6:35 PMPATIENT IDENTITY VERIFICATION COMPLETED USING TWO (2) METHODS: Patientconfirmed name verbally and ID band matches..PATIENT GENDER DATA: Female. status: : No Breastfeedingstatus: NO.PATIENT RELEVANT IMPLANT DATA REVIEWED: YesCONTRAST INDUCED NEPHROPATHY RISK FACTORS: Patient age > 60 yearsCREATININE:Creatinine Date Value Ref Range Boxgnj3412/15/2016 1.12 0.70 - 1.40 mg/dL Final02/15/2013 1.11 0.70 - 1.40 mg/dL Final eGFR-All Other RacesDate Value Ref Range Gbuans5612/15/2016 49 . FinalComment:eGFR (Estimated GFR) Units of [...] actual GFR. eGFR- AmericanDate Value Ref Range Njfowg50/02/2016 60 Final P.O.C.T. RESULTS: N/A December 15, [...] AWARE AND DR LESLIEIGNED BY: Cary Covarrubias [facility] 2016 6:35 PMProgress Notes ():Nixon Vicente MD, MD 12/15/2016 9:50 PM SignedED Provider NotePatient Name: Laura StarkMRN: [id number] DATE: 12/15/16HistoryPatient presents with:CoughShortness of BreathFeverHPIThis is [...] a low-grade temp and her heart rate [id number] so there was still was a suspicion. Blood cultures are also pending. CTshows mild atelectasis within bilateral lungs no acute abnormality and there isan attenuation interposed between the right left atria consistent with lipomahypertrophy of intra-atrial septum. Patient was supposed to follow up with Dr.Dugal and infectious disease. I paged infectious disease on-call Dr. Mcginnis. Iwill admit the patient for generalized weakness shortness of breath and failingoutpatient treatment.ED CourseEncounter Diagnosis ICD-10-CM1. General weakness R53.12. Shortness of breath R06.02PlanThe Patient was ADMITTED TO: Regular nursing floor.Condition at time of disposition: stableSIGNATURE: [place]02/15/16 2127Attending NoteI have personally performed a face to face assessment of the patient and havereviewed the PA/BUILDING TRADES INSTRUCTOR note. My starkey findings include:Assessment/Plan are this [...] 12/15/2016Time: 9:48 PMMatthew Ottoniel Vicente MD12/15/16 2150Previous ERIN Hernández 12/15/2016 5:51 PM SignedMEDICATION HISTORYPatient Name:Chuy StarkMRN: [id number]: 1955Source of history:Patient: Reliability of source: Appears [...] localized rash and itching all overPreferred Pharmacy: [facility] Medications:Prior to Admission medications as of 12/15/16 [...] (FLONASE) 50 mcg/actuation nasal spray Use 1 [place] in each nostriltwice daily. Unknown at Unknown time Yesdiltiazem CD (CARDIZEM CD) 180 mg 24 hr capsule Take 180 mg by mouth once daily.Unknown at Unknown time Yesacetaminophen (TYLENOL ARTHRITIS PAIN) 650 mg CR tablet Take 1,300 mg by mouthat bedtime as needed. Unknown at Unknown time Yesalbuterol HFA (PROAIR HFA) 90 mcg/actuation inhaler Inhale 2 Puffs as instructedevery 4 hours as needed. Ana ABDULLAHI, PHARMACISTCannon Memorial Hospital2016 5:48 PMSshahida Dinero RN, RN 12/15/2016 6:59 PM Signed catscan iv blew in left acReyna Storm RN, RN 12/15/2016 7:[address] staff at bs and 18g won't flush. MARIO Mendoza at bs to attempt new placement ofIV.Reyna Storm RN, RN 12/15/2016 8:[address] Vicente at bs to speak with patient. He is aware that her IV infiltrated inPE study. IV removed.Reyna Storm RN, RN 12/15/2016 9:15 PM Signed Up to marisol castillo PA updated pt on plan of care.Reyna Storm RN, RN 12/15/2016 9:54 PM Signed Calling to ask nursing asbestos pipe supervisor for bed change due to precautions.Kiara Nugent MD 12/17/2016 5:54 AM [facility]igned[facility]- History and PhysicalBOLAURA BAKER MDOB: 1955 AGE: 61 SEX: FMRN: [id number] ACCTNUM: [id number] SV: [facility] LOCATION: [id number] PHYSICIAN: Kiara Nguent M.D.ADMIT DATE: 12/15/2016CHIEF COMPLAINT: Cough, shortness of [...] muffled. Abdomen: Soft, obese, benign. Extremities:No edema. SERVICE CENTER REPRESENTATIVE: Nonfocal.IMPRESSION: A 61-year-old female admitted with acute exacerbation of asthmawith failure of therapy, history of hypertension, remote PE.PLAN: Admit as inpatient. IV vancomycin and Rocephin based on prior cultureresults. IV methylprednisolone. Monitor labs. Continue home medications.Replace potassium. Continue aerosols. Further treatment will depend on theclinical course of the patient and input from Infectious Disease specialist.Kiara Nugent M.D.Internal MedicineYG:[id number]: 12/16/2016 13:13:42T: 12/16/2016 23:07:58Job #: [id number] Susan Nugent MD 12/16/2016 9:07 AM AddendumPt seen and examined,Kiara Nugent MDDecember 16, 2016 9:[address] 12/16/2016 [...] was weighting this at the beginning of t Wt102/15/16 : 107 kg (236 lb)04/12/16 : 115.2 kg (254 lb)10/04/15 : 113.4 kg (250 lb)02/23/15 : 116.1 kg (256 lb)11/03/14 : 111.1 kg (245 lb)04/02/13 : 96.6 kg (213 lb)02/15/13 : 96.6 kg (213 lb)05/03/12 : 100.7 kg (222 lb)04/28/12 : 99.3 kg (219 lb)02/16/12 : 111.1 kg (245 lb)Dosing Weight: 107 kgResting Metabolic Rate: 1587Estimated kilocalorie needs: 7617-5566 kilocalories determined by 10-15 kcal/kgEstimated protein needs: 54-80 grams determined by 20% of estimated kilocalorieneeds dosing weightEstimated fluid needs: 9185-5293 milliliters based on 1 mL per kcalNUTRITION [...] kg (236 lb) SpO2 100% BMI 43.16 kg/z7Wnokfa Labs 12/15/1716GLUC 172* 158*BUN 33* 33*CREAT 1.11 [...] have any questions, please contact pharmacy at [phone].Age: 61 year oldAllergies:ALLERGIESAlle rgen Reactions- Clindamycin Hives- [...] (H)12/15/2016 33 (H)02/15/2013 20 Creatinine (mg/dL)Date Value12/16/2016 1. 1.1201 1.11 WBC (k/uL)Date Value12/16/2016 8.3411 9.3701 6.70 Vancomycin Levels: No results found for: Tiesha Hickman, Maikel Wilson, RN, RN 12/16/2016 12:55 PM SignedWound Care Consult TeamMRN: [id number] NAME: Laura Stark is a 61 year [...] for wound care [facility].Wound Care Consult Team recommendations discussed [...] and please feel free tore-consult me if necessary.Barbara Cortez RN, RN 12/16/2016 11:12 AM Signed Nursing Progress NotePatient Name: Laura StarkMRN: [id number] [place] [facility] [place]/QH-6G-2379-1___ 1100 In room with Kailey wound care nurse, checked pt. buttox region: whichpresents as moisture associate dermatitis; 6cm length X 0.5cm width. Kailey,stated to f/u with Inter-dry between buttox. There are no pressure ulcers onfeet, only a callus on R upper foot.This note was completed by: Josephine Tavarez LSW, RN 12/16/2016 3:21 PM SignedCARE MANAGEMENT: ASSESSMENT AND DISCHARGE PLANSERVICE DATE: 12/16/2016SERVICE TIME: 3:10 PMPRIABRAZO ARROWHEAD CAMPUSY CARE PHYSICIAN:Moreno Donnelly MD - confirmed with patient. [id number] STATUS: InpatientPOTENTIAL DISCHARGE PLANSHomeHome CareOutpatient TherapyTo Be DeterminedPatient/Represen tative Stated Goals: Pt would like to feel better, as she hasbeen feeling sick for some time, and return home to her family.Needs Prior to Discharge: To Be DeterminedHealth Insurance: Medical [place] ServicesLiving Arrangement: HomeLives With: Spouse and Daughter Daughter is 20yrs old and has multiple handicapsper pt.Financial Resources: RetiredPrimary Contact:Extended Emergency Contact InformationPrimary Emergency Contact: Nixon StarkAddress: [address] Grnadq Eppehykr: SpouseSupportive: YesOther Important Patient Contacts: NoneCAREGIVER ASSESSMENT:Caregiver [...] Person, Place , Time and SituationFunctional Status: IndependentDoes Patient Currently Receive Any Community [...] for maintenance medications and [facility] in [place] for short termmeds.Food Concerns:In the Last Month, Have You had Trouble Getting Food? No trouble getting foodDuring the Last Month, Have You Worried Whether Your Food Would Run Out BeforeYou Had Enough Money to Buy More? NoPsychosocial Needs: NoneUTILIZATION:Last Admission Date: noneIs this Within the Past 30 days? NoHas the Patient Been in a Custodial Facility in the Past 30 days? N/AFREEDOM OF CHOICE EXPLAINED:N/MIREILLE COMMUNICATION:Pt not yet ready [...] any d/c planning needs.SIGNATURE: Yue Estrada MSW, PIANO CASE MAKER PATIENT NAME: Laura StarkDATE: December 16, 2016 : 3:10 PM PAGER/CONTACT #: [phone] Anam Cortez RN, RN 12/16/2016 5:21 PM Signed Nursing Progress NotePatient Name: Laura StarkMRN: [id number] Location: MA0/CS-2S-2220-1___ Daily Note:8625 Dr. Abdi called/ not able to get/ left message. Pt.requesting Mucinex.Will await call back.This note was completed by: Barbara Cortez, Ashok Mcginnis MD, MD 12/17/2016 3:38 PM SignedID CONSULTPRIMARY CARE PHYSICIAN: PARVIN OsegueraUBJECTIVECHI COMPLAINT: CoughShortness of BreathFeverHPI: This is a [...] the ED. [facility].?PAST MEDICAL HISTORYDiagnosis Date- DVT (deep venous thrombosis) (HCC) 1995 Rt lower leg- PE (pulmonary embolism)- Unspecified asthma(493.90)- Unspecified essential hypertensionPAST SURGICAL HISTORYProcedure Laterality Date- APPENDECTOMY- DELIVERY ONLY , low cervical- COLONOSCOP W/ OR W/O [facility] SPEC 01-09-13- DEBRIDE SKIN AND SUBQ TISSU [...] mouth daily at bedtime. Disp: Rfl: 12/14/2016 [id number] (PRILOSEC) 40 mg capsule Take 40 mg by mouth once daily. Disp: Rfl:12/15/2016 at 0700montelukast (SINGULAIR) 10 mg tablet Take 10 mg by mouth daily at bedtime. Disp:Rfl: 12/14/2016 at 2200fluticasone (FLONASE) 50 mcg/actuation nasal spray Use 1 [place] in each nostriltwice daily. Disp: Rfl: 12/15/2016 [...] hrs: BP Temp Temp src Pulse Resp VqH31912/16/16 1645 - - - - 16 -12/16/16 [...] ?C (98.9 ?F) Oral (!) 107 20 -12/15/160 - - - (!) 102 20 96 [...] 16, 2016 : 6:24 PM PAGER/CONTACT #: [phone] Shonnaaspirus [facility] CAROLYN 12/17/2016 8:40 AM SignedReceived report from operations supervisor 2nd shift MARIO Brownlee.Kiara Nugent MD 12/17/2016 4:39 PM SignedINTERNAL MEDICINE PROGRESS NOTESERVICE DATE: 12/17/2016ADMITTING PHYSICIAN: Kiara Galloway COMPLAINT: Feeling better then yday but still [...] hrs: BP Temp Temp src Pulse Resp DoN91412/17/16 1600 143/77 36.7 ?C (98.1 ?F) Oral [...] 2345 - - - 97 18 98 %12/16/16 2018 - - - 88 16 97 %12/16/16 [...] PAGER/CONTACT #:Emeterio Braxton MD 12/17/2016 3:44 PM Signed[facility] [place] Consultation Note, 12/17/2016When I stopped in to consult with patient, PICC team was around bedside, placingsterile drapes, in preparation of PICC line placement.I excused myself, and will try to return later today to complete consultation.Emeterio Braxton MD, [facility] [address] [address]N: [phone]: [phone] Estok, RN, RN 12/17/2016 3:14 PM SignedAMBULATORY [...] Signed By: Brittnee Farnsworth RN In Department: [facility]OS[facility]ITALBrittnee Farnsworth RN, RN 12/17/2016 3:28 PM SignedPICC NURSE INSERTION NOTEDATE OF PROCEDURE: December 17, 2016TIME OF PROCEDURE: 1500ORDERING PHYSICIAN: GoyalINFORMED CONSENT: Obtained per hospital policy.INDICATION FOR LINE PLACEMENT: IV therapy over six daysCONDITION OF LINE PLACEMENT: SterilePRIMARY PROCEDURALIST: SARAH CaroTANT: Brittnee FarnsworthPRE-PROCEDURE REVIEWALLERGIESAllergen Reactions- Clindamycin Hives- Macrodantin [...] Discussion: Alana Farnsworth RNCATHETER PLACEMENTBrand: Bard Lot: [id number] of Lumens: 1Type of PICC: Power Injectable [...] NoneCOMPLICATIONS: NonePatient Education Materials: Given to patientThe [facility] Central Line Insertion checklist, attached to the [...] rashesNo joint inflammationNeck suppleLines okNo CVATLabs:Recent Labs 12/17/1703WBC 9.21 8.34 9.37HB 12.2 12.9 13.3HCT 38.7 41.5 42.7PLT 266 293 312INR -- -- 1.0APTT -- -- <20.0*NA 134 137 136K 4.5 3.3* 3.6CHLOR 94* 92* 91*CO2 23 23 24BUN 35* 33* 33*CREAT 1.22 1.11 1.12Microbiology data: reviewedImaging data: Du Mcginnis, ANTHONYager: date of service: 12/17/2016Time of service: 3:39 [...] have any questions, please contact pharmacy at [phone].Age: 61 year oldAllergies:ALLERGIESAlle rgen Reactions- Clindamycin Hives- [...] (H)12/15/2016 33 (H) Creatinine (mg/dL)Date Value12/17/2016 1.22102/16/2016 1. 1.12 WBC (k/uL)Date Value12/17/2016 9.2111 8.3411 9.37 Vancomycin Levels:Vancomycin, result (ug/mL)Date Value12/17/2016 37.9 (H) Kiki Parkinson, RN, RN 12/18/2016 1:18 AM Signed Nursing Progress NotePatient Name: Laura StarkMRN: [id number] [place] [facility] [place]VZ-6R-3112-1___ Daily Note:PCNA informed RN of tachycardia during routine vital signs. Pt rate [address] Nugent notified- order for stat EKG and to give PO cardizem now. called back at 0112 with EKG results of Atrial Fibrillation with rapidventricular response and possible inferior subendocardial injury. Verbal orderto transfer patient to [address] [place] [address].This note was completed by: Jamila Castillo, RN, RN 12/18/2016 6:24 PM Addendum Nursing Progress NotePatient Name: Laura StarkMRN: [id number] [facility]/LW-8E-7701-1___ Daily Note:0715- Bedside report received. Pt resting [...] other needs. Call light within reach.1015- Dr. Jovanna jennings.1055- Cardizem gtt decreased to 5 ml/hr. Dr. Jeb jennings, aware of pt convertingto SR, states ok [...] PRNINTERVAL HISTORY OF PRESENT ILLNESS: Transferred to [facility] due to rapid afib, nowin NSR. No [...] SERVICESERVICE DATE: 12/18/2016SERVICE TIME: 10:46 AMCONSULTING PHYSICIAN: ANTHONY VillavicencioCP: Moreno Donnelly MDATTENDING: Kiara Mccabe FOR CONSULT: [...] , low cervical- COLONOSCOP W/ OR W/O [facility] SPEC 01-09-13- DEBRIDE SKIN AND SUBQ TISSU [...] ENTERIC COATED) 325 mg EC tablet 12/15/2016 td1370 Yes YesSig: Take 325 mg by mouth once daily.diltiazem CD (CARDIZEM CD) 180 mg 24 hr capsule 12/15/2016 at 1200 Yes YesSig: Take 180 mg by mouth once daily.doxycycline hyclate (VIBRAMYCIN) 100 mg capsule 12/15/2016 at 0700 Yes YesSig: Take 100 mg by mouth twice daily. 12/17/16 AM last dosefluticasone (FLONASE) 50 mcg/actuation nasal spray 12/15/2016 at 0700 Yes YesSig: Use 1 [place] in each nostril twice daily.fluticasone-salmeter ol (ADVAIR [...] daily. Taper starting 12/16/16 20mg x3 days, 91mpo8iibl, 5mg x3 days. Then discontinuedspironolactone (ALDACTONE) 25 [...] BP Temp Temp src Pulse Resp SpO2 Zpfqln97/04/17 1015 140/75 37.3 ?C (99.1 ?F) Oral [...] NSR with PACsPast 72 Hour Labs:Recent Labs 12/17/1703725CK -- -- -- 62TROPT -- -- -- [...] EF 60% and normal SPECT scan at [place] by Chuck recentlyASSESSMENT AND PLAN:I will D/C [...] 18, 2016 : 10:46 AM PAGER/CONTACT #: [phone] Livingston MD 12/18/2016 1:10 PM SignedRespiratory InstituteCONSULTATION NOTEConsulting Physician: Dr. OrnelasMUSC Health [facility]: Asthma exacerbationHPI: This is a 61 year [...] to course of doxycycline, [facility] Here, she is being treated for her asthma flare and fora respiratory tract infection with ceftriaxone and vancomycin. CT chest did notshow a very convincing consolidation/pneumonia.NEDA VILLAGOMEZ MEDICAL HISTORYDiagnosis Date- DVT (deep venous thrombosis) (HCC) 1995 Rt lower leg- PE (pulmonary embolism)- Unspecified asthma(493.90)- Unspecified essential hypertensionPAST SURGICAL HISTORYProcedure Laterality Date- APPENDECTOMY- DELIVERY ONLY , low cervical- COLONOSCOP W/ OR W/O [facility] SPEC 01-09-13- DEBRIDE SKIN AND SUBQ TISSU [...] lb 10.8 oz) SpO2 92% BMI 43.1 kg/n5Tuqgsqu appearance: Well appearing, alert, in no acute [...] have any questions, please contact pharmacy at [phone].Age: 61 year oldAllergies:ALLERGIESAlle rgen Reactions- Clindamycin Hives- [...] (H)12/17/2016 1.22102/16/2016 1.11 WBC (k/uL)Date Value12/18/2016 10.9611 9.21102/16/2016 8.34 Vancomycin Levels:Vancomycin, result (ug/mL)Date Value12/17/2016 37.9 (H) Gaurang Antonio, PharmacistSharee Harp RN, RN 12/19/2016 4:28 AM Addendum Nursing Progress NotePatient Name: Laura StarkMRN: [id number] Location: [place] [address]/FA-0C-8475-1___ Daily Note:2300-Call to Dr. Russ regarding pt [...] HR down to 100-110 bpm. Calllight in mvnzd4674-Gkrim draws collected from PICC line and sent to labThis note was completed by: Diana Keith RN, RN 12/19/2016 8:00 PM Addendum Nursing Progress NotePatient Name: Laura StarkMRN: [id number] Location: MA-2N-0241/RF-3V-3200-1___ Daily Note:0730- Bedside report received. Pt sleeping. No needs noted. Call light withinreach.0735- Pt converted back to Afib.0810- Resting in bed. AANDOx3. Apical irregular. Converted back to Afib, [id number]'s. Denies chest pain. C/O palpitations and dyspnea. Lungs with coarsewheezes. Resp slightly labored at rest. Moist cough noted. Abd soft, obese.BSx4. Skin warm, dry, color pink. PPP. LLE 4+ edema. RLE 2+ edema. RUE PICClineintact. Denies needs. Call light within reach.0930- Dr. Jeb jennings, updated on pt's status and pt converting [...] use of BSCuntil HR normalized.1500- Informed by Fontacto that pt's HR sustaining in the 140's. Dr. Russ onncoor, notified and orders received.1510- Medicated for chest discomfort with Morphine 2 mg IV.1555- Cardizem gtt initiated at 10 ml/hr. States Morphine is effective. Deniespain.1810- HR sustained 140's. Spoke with Dr. Russ, orders received.1820- Cardizem 10 mg IV bolus given and Cardizem gtt increased to 15 ml/hr. Noother changes noted in assessment. Call light within reach.This note was completed by: Diana Romo, ACCORDION TUNER 12/19/2016 11:27 AM SignedPHARMACY VANCOMYCIN DOSING NOTEPatient Name: aLura Stark Admission Date: 12/15/2016Date of Consult: 12/19/2016 [...] have any questions, please contact pharmacy at [phone].Age: 61 year oldAllergies:ALLERGIESAlle rgen Reactions- Clindamycin Hives- [...] AF with RVRPatient [facility] She has been sickwith pulmonary issues [...] , low cervical- COLONOSCOP W/ OR W/O [facility] SPEC 01-09-13- DEBRIDE SKIN AND SUBQ TISSU [...] pulsesSkin: no rashes/ erythemaLAB:TSHDate Value Ref Range Otgwft3612/18/2016 0.242 (L) 0.400 - 5.500 uU/mL Final Free T4Date Value Ref Range Winmfq2912/18/2016 1.9 (H) 0.9 - 1.7 ng/dL Final No results found for: O8GGQXWZUMHB/PLAN:1) Hyperthyroidism:Likely Graves disease vs toxic nodulePatient presented with new onset Fernie.Juan Free T3 and TSIRecently underwent CT with [...] with mild activity she developssignificant SOB or palpitations.MEDICATIONS:[facility] medications:apixaban 5 mg tab(s) (ELIQUIS) 5 [...] BP Temp Temp src Pulse Resp SpO2 Bswcve32/05/17 1145 - - - 115 20 - [...] 0.4AST 14ALT 33Last Lab Drawn:TSH 0.242 12/18/2016ASSESSMENT/PLANPa [facility] Problem List: Weakness (12/16/2016) Obesity, Class III, 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 Started on Amiodarone 400mg TID.Consider FERNANDO / DCCVH/O DVT and Pulm Emboli (hypercoagulable state?)Had normal Echo EF 60% and normal SPECT scan at [place] by Chuck recentlyContinue Cardizem 240 mg daily [...] 19, 2016 : 2:09 PM PAGER/CONTACT #: [phone] Goyal, MD 12/19/2016 3:26 PM SignedINTERNAL MEDICINE [...] Addendum Nursing Progress NotePatient Name: Laura StarkMRN: [id number] Location: [place] [address]/IK-5M-9417-1___ Daily Note:1945-Pt assessed. No needs at this time. Call light in reach. Reports nochest pain/pressure at this time.5-Pt given meds. RT [...] PM SignedINTERNAL MEDICINE PROGRESS NOTEADMITTING PHYSICIAN: Kiara NugentSUStoneyJECTIVECHIEF COMPLAINT: Feeling better today am, no new complains (more content not included)... Normal [facility] Magnesiumon 12-15-2016 Magnesium 1.9 mg/dL Normal 1.7-2.6 [facility] Comment on above: Performed By: #### C BCDIF, PT, PTT, CMP, MG1 ####[facility] [address] [place] [phone] PLAN OF CAREon 12-15-2016 PLAN OF CARE HNO ID: [id number] thor: Jo Ann Abdullahi (Pharmacist)Service: PharmacyAuthor Type: PharmacistType: Plan of CareFiled: 12/15/2016 5:51 PMNote Text:MEDICATION HISTORYPatient Name:Chuy StarkMRN: [id number]: 1955Source of history:Patient: Reliability of source: Appears [...] localized rash and itching all overPreferred Pharmacy: [facility] Medications:Prior to Admission medications as of 12/15/166Medication Sig Last Dose Takingfluticasone-salmeter ol (ADVAIR DISKUS) [...] (ASPIRIN, ENTERIC COATED) 325 mg EC tablet Behs885 mg by mouth once daily. Unknown at [...] (FLONASE) 50 mcg/actuation nasal spray Use 1 [place] in eachnostril twice daily. Unknown at Unknown [...] needed. Ana ABDULLAHI PHARMACISTNov2016 5:48 PM Normal [facility] Protimeon 12-15-2016 INR Coag RelTime (Bld) 1.0 {INR} Normal 0.9-1.3 [facility] Comment on above: Result Comment: Regine min K Antagonist (VKA) Therapeutic Range: INR 2 to 3 (Target INR of 2.5)Note: For patients treated with VKA drugs, such as warfarin, the [place] [employer] 2012 Guideline recommends [...] of 3).Nadir GH, et al. Chest 2012, 141:7S-47SNishimura RA, et al. [facility] 2017, 70: 252-289 Performed By: #### C BCDIF, PT, PTT, CMP, MG1 ####[facility] [address] [place], [place] [phone] PT Sec 10.0 sec Normal 9.7-13.0 [facility] Comment on above: Performed By: #### C BCDIF, PT, PTT, CMP, MG1 ####[facility] Tlucaofjcd6986 [phone] Sepsis Lactateon 12-15-2016 Sepsis Lactate 1.8 mmol/L Normal 0.5-2.0 [facility] Comment on above: Performed By: #### C BCDIF, PT, PTT, CMP, MG1 ####[facility] Fqknizrjei6313 [phone] Troponin Ton 12-15-2016 Troponin T.cardiac mass conc ug/L Normal 0.000-0.02 9 [facility] Comment on above: Performed By: #### T NT ####[facility] V[address]zjnfuja6152 [address]721-5160 Bacteria identified Cx Nom ( U) Urine culture Culture exhibits no growth. [facility] Work Phone: Culture, urine Mixed Gram Pos & Gra m Neg Org [facility] Work Phone: Culture, urine Presumptive E. coli W [facility] Work Phone: Bronchoalveolar lavage cultu re with Gram stain Respiratory Culture Pseudomonas aeroginosa [facility] Work Phone: Bronchoalveolar lavage culture with Gram stain Pseudomonas aeroginosa [facility] Work Phone: Culture, urine Bacteria identified Cx Nom (U) Mixed Gram Pos & Gram Neg Org [facility] Work Phone: Bacteria identified Cx Nom (U) Culture exhibits no growth. [facility] Work Phone: Bacteria identified Cx Nom (U) Presumptive E. coli [facility] Work Phone: Gram stain for investigation of transfusion reaction Microscopic observation Gram stain Nom (Unsp spec) [facility] Work Phone: Laboratory - Microbiology an d Antimicrobial susceptibility Bacteria identified Cx Nom (Bld) No growth in 5 days. [facility] Work Phone: No Panel Information Nasal Screen MRSA/MSSA [facility] Work Phone: Respiratory Panel (PCR) [facility] Work Phone: SARS-CoV-2 & FLU Antigen (Rapid) [facility] Work Phone: No growth in 5 days. [facility] Work Phone: Vital Signs Date Time Vital Sign Value Performing Clinician Faci lity 09-08-2024 20:00-0400 Body temperature 98.4 [degF] Dr. Moreno Donnelly MD Work Phone: [facility] 09-08-2024 20:00-0400 Diastolic blood pressure 61 mm[Hg] Dr. Moreno Donnelly MD Work Phone: [facility] 09-08-2024 20:00-0400 Heart rate 94 /min Dr. Moreno Donnelly MD Work Phone: [facility] 09-08-2024 20:00-0400 Respiratory rate 18 /min Dr. Moreno Donnelly MD Work Phone: [facility] 09-08-2024 20:00-0400 SaO2% (BldA) [Mass fraction] 99 % Dr. Moreno Donnelly MD Work Phone: [facility] 09-08-2024 20:00-0400 Systolic blood pressure 91 mm[Hg] Dr. Moreno Donnelly MD Work Phone: [facility] 09-07-2024 21:34-0400 Body temperature 98 [degF] Dr. Moreno Donnelly MD Work Phone: [facility] 09-07-2024 21:34-0400 Diastolic blood pressure 57 mm[Hg] Dr. Moreno Donnelly MD Work Phone: [facility] 09-07-2024 21:34-0400 Heart rate 95 /min Dr. Moreno Donnelly MD Work Phone: [facility] 09-07-2024 21:34-0400 Respiratory rate 18 /min Dr. Moreno Donnelly MD Work Phone: 2(010)657-739362 [place] [address] 09-07-2024 21:34-0400 SaO2% (BldA) [Mass fraction] 99 % Dr. Moreno Donnelly MD Work Phone: 8(987)424-453162 [place] [address] 09-07-2024 21:34-0400 Systolic blood pressure 102 mm[Hg] Dr. Moreno Donnelly MD Work Phone: 7(578)250-649617 [place] [address] 09-07-2024 08:30-0400 Body height 154.[address] Moreno Donnelly MD Work Phone: 1(404)778-210517 [place] [address] 09-07-2024 08:30-0400 Body mass index (BMI) [Ratio] 34.7 kg/m2 Dr. Moreno Donnelly MD Work Phone: 4(492)199-434417 [place] [address] 09-07-2024 08:30-0400 Body weight 83.[address] Moreno Donnelly MD Work Phone: 9(823)412-064517 [place] [address] 09-06-2024 18:25-0400 Body temperature 98.6 [degF] Dr. Moreno Donnelly MD Work Phone: 8(395)276-135117 [place] [address] 09-06-2024 18:25-0400 Diastolic blood pressure 61 mm[Hg] Dr. Moreno Donnelly MD Work Phone: 9(442)625-992717 [place] [address] 09-06-2024 18:25-0400 Heart rate 100 /min Dr. Moreno Donnelly MD Work Phone: 5(909)763-286517 [place] [address] 09-06-2024 18:25-0400 Respiratory rate 15 /min Dr. Moreno Donnelly MD Work Phone: 2(185)357-178917 [place] [address] 09-06-2024 18:25-0400 SaO2% (BldA) [Mass fraction] 100 % Dr. Moreno Donnelly MD Work Phone: 8(651)288-692217 [place] [address] 09-06-2024 18:25-0400 Systolic blood pressure 102 mm[Hg] Dr. Moreno Donnelly MD Work Phone: 5(971)699-265417 [place] [address] 09-06-2024 12:37-0400 Body height 154.[address] Moreno Donnelly MD Work Phone: [facility] 09-05-2024 15:58-0400 Diastolic blood pressure 59 mm[Hg] Dr. Moreno Donnelly MD Work Phone: 7(588)025-840617 [place] [address] 09-05-2024 15:58-0400 Heart rate 88 /min Dr. Moreno Donnelly MD Work Phone: 8(706)325-616317 [place] [address] 09-05-2024 15:58-0400 Respiratory rate 16 /min Dr. Moreno Donnelly MD Work Phone: 2(489)056-860817 [place] [address] 09-05-2024 15:58-0400 Systolic blood pressure 121 mm[Hg] Dr. Moreno Donnelly MD Work Phone: 2(045)173-739717 [place] [address] 09-05-2024 14:33-0400 Body height 154.[address] Moreno Donnelly MD Work Phone: 0(195)995-775217 [place] [address] 09-05-2024 14:33-0400 Body temperature 96.5 [degF] Dr. Moreon Donnelly MD Work Phone: 8(212)544-343017 [place] [address] 09-05-2024 14:33-0400 SaO2% (BldA) [Mass fraction] 98 % Dr. Moreno Donnelly MD Work Phone: 0(146)930-073417 [place] [address] 05-16-2024 08:25-0400 Body mass index (BMI) [Ratio] 35.9 kg/m2 Dr. Moreno Donnelly MD Work Phone: 5(925)517-629017 [place] [address] 05-16-2024 08:25-0400 Body weight 86.[address] Moreno Donnelly MD Work Phone: 9(565)704-367117 [place] [address] 05-16-2024 08:25-0400 Diastolic blood pressure 84 mm[Hg] Dr. Moreno Donnelly MD Work Phone: 3(333)353-876717 [place] [address] 05-16-2024 08:25-0400 Heart rate 85 /min Dr. Moreno Donnelly MD Work Phone: 1(709)788-975417 [place] [address] 05-16-2024 08:25-0400 Respiratory rate 22 /min Dr. Moreno Donnelly MD Work Phone: [facility] 05-16-2024 08:25-0400 SaO2% (BldA) [Mass fraction] 100 % Dr. Moreno Donnelly MD Work Phone: [facility] 05-16-2024 08:25-0400 Systolic blood pressure 128 mm[Hg] Dr. Moreno Donnelly MD Work Phone: [facility] 05-03-2024 10:01-0400 Body height 154.[address] Moreno Donnelly MD Work Phone: [facility] 05-03-2024 10:01-0400 Body mass index (BMI) [Ratio] 35.6 kg/m2 Dr. Moreno Donnelly MD Work Phone: [facility] 05-03-2024 10:01-0400 Body weight 85.[address] Moreno Donnelly MD Work Phone: [facility] 05-01-2024 12:59-0400 Body mass index (BMI) [Ratio] 35.71 kg/m2 Linda Restrepo APRN.CNM Work Phone: [facility] 05-01-2024 12:59-0400 Body weight 85.73 kg Linda Restrepo APRN.CNM Work Phone: [facility] 05-01-2024 12:59-0400 Diastolic blood pressure 68 mm[Hg] Linda Restrepo APRN.CNM Work Phone: [facility] 05-01-2024 12:59-0400 Systolic blood pressure 120 mm[Hg] Linda Restrepo APRN.CNM Work Phone: [facility] 10-03-2023 13:27-0400 Body mass index (BMI) [Ratio] 41.95 kg/m2 Linda Restrepo APRN.CNM Work Phone: [facility] 10-03-2023 13:27-0400 Body weight 100.7 kg Linda Restrepo APRN.CNM Work Phone: [facility] 10-03-2023 13:27-0400 Diastolic blood pressure 74 mm[Hg] Linda Restrepo APRN.CNM Work Phone: [facility] 10-03-2023 13:27-0400 Systolic blood pressure 118 mm[Hg] Linda Restrepo APRN.CNM Work Phone: [facility] 06-14-2023 09:06-0400 Body temperature 96.4 [degF] Dr. Moreno Donnelly Work Phone: [facility] 06-14-2023 09:06-0400 Body weight 108.[address] Moreno Donnelly Work Phone: [facility] 06-14-2023 09:06-0400 Diastolic blood pressure 63 mm[Hg] Dr. Moreno Donnelly Work Phone: [facility] 06-14-2023 09:06-0400 Heart rate 86 /min Dr. Moreno Donnelly Work Phone: [facility] 06-14-2023 09:06-0400 Systolic blood pressure 142 mm[Hg] Dr. Moreno Donnelly Work Phone: [facility] 06-07-2023 10:46-0400 Body mass index (BMI) [Ratio] 102.8 kg/m2 Dr. Moreno Donnelly Work Phone: [facility] 06-07-2023 10:46-0400 Respiratory rate 18 /min Dr. Moreno Donnelly Work Phone: [facility] 05-13-2023 11:21-0400 Body mass index (BMI) [Ratio] 102.8 kg/m2 Dr. Ervin Donnelly Work Phone: [facility] 05-13-2023 11:21-0400 Body temperature 96.3 [degF] Dr. Ervin Donnelly Work Phone: [facility] 05-13-2023 11:21-0400 Diastolic blood pressure 56 mm[Hg] Dr. Ervin Donnelly Work Phone: [facility] 05-13-2023 11:21-0400 Heart rate 85 /min Dr. Ervin Donnelly Work Phone: [facility] 05-13-2023 11:21-0400 Respiratory rate 18 /min Dr. Ervin Donnelly Work Phone: [facility] 05-13-2023 11:21-0400 Systolic blood pressure 149 mm[Hg] Dr. Ervin Donnelly Work Phone: [facility] 05-10-2023 10:07-0400 Body height 154.[address] Ervin Donnelly Work Phone: [facility] 05-10-2023 10:07-0400 Body weight [address] Ervin Donnelly Work Phone: [facility] 03-10-2023 09:53-0500 Body height 154.[address] Ervin Donnelly Work Phone: [facility] 03-10-2023 09:53-0500 Body mass index (BMI) [Ratio] 47 kg/m2 Dr. Ervin Donnelly Work Phone: [facility] 03-10-2023 09:53-0500 Body temperature 97.3 [degF] Dr. Ervin Donnelly Work Phone: [facility] 03-10-2023 09:53-0500 Body weight 113.[address] Ervin Donnelly Work Phone: [facility] 03-10-2023 09:53-0500 Diastolic blood pressure 71 mm[Hg] Dr. Ervin Donnelly Work Phone: [facility] 03-10-2023 09:53-0500 Heart rate 80 /min Dr. Ervin Donnelly Work Phone: [facility] 01-25-2024 09:53-0500 Respiratory rate 18 /min Dr. Ervin Donnelly Work Phone: [facility] 03-10-2023 09:53-0500 SaO2% (BldA) [Mass fraction] 97 % Dr. Ervin Donnelly Work Phone: [facility] 03-10-2023 09:53-0500 Systolic blood pressure 136 mm[Hg] Dr. Ervin Donnelly Work Phone: 0(887)[phone] [place] [address] 12-10-2022 08:14-0400 Body mass index (BMI) [Ratio] 46.3 kg/m2 Dr. Ervin Donnelly Work Phone: 5(130)[phone] [address] 12-10-2022 08:14-0400 Body temperature 97.3 [degF] Dr. Ervin Donnelly Work Phone: 3(467)[phone] [address] 12-10-2022 08:14-0400 Body weight 111.[address] Ervin Donnelly Work Phone: [facility] 12-10-2022 08:14-0400 Diastolic blood pressure 73 mm[Hg] Dr. Ervin Donnelly Work Phone: 1(753)[phone] [place] [address] 12-10-2022 08:14-0400 Heart rate 93 /min Dr. Ervin Donnelly Work Phone: 9(514)[phone] [address] 12-10-2022 08:14-0400 Respiratory rate 17 /min Dr. Ervin Donnelly Work Phone: [facility] 12-10-2022 08:14-0400 SaO2% (BldA) [Mass fraction] 96 % Dr. Ervin Donnelly Work Phone: [facility] 12-10-2022 08:14-0400 Systolic blood pressure 139 mm[Hg] Dr. Ervin Donnelly Work Phone: [facility] 12-07-2022 11:12-0400 Body weight 112.49 kg Nunu Oneal MD Work Phone: [facility] 12-07-2022 11:12-0400 Diastolic blood pressure 82 mm[Hg] Nunu Oneal MD Work Phone: [facility] 12-07-2022 11:12-0400 Systolic blood pressure 130 mm[Hg] Nunu Oneal MD Work Phone: [facility] 11-16-2022 09:50-0400 Body mass index (BMI) [Ratio] 47.2 kg/m2 Dr. Ervin Donnelly Work Phone: [facility] 11-16-2022 09:50-0400 Body weight 113.[address] Ervin Donnelly Work Phone: [facility] 11-16-2022 09:50-0400 Diastolic blood pressure 77 mm[Hg] Dr. Ervin Donnelly Work Phone: [facility] 11-16-2022 09:50-0400 Heart rate 74 /min Dr. Ervin Donnelly Work Phone: [facility] 11-16-2022 09:50-0400 Respiratory rate 22 /min Dr. Ervin Donnelly Work Phone: [facility] 11-16-2022 09:50-0400 SaO2% (BldA) [Mass fraction] 98 % Dr. Ervin Donnelly Work Phone: [facility] 11-16-2022 09:50-0400 Systolic blood pressure 121 mm[Hg] Dr. Ervin Donnelly Work Phone: [facility] 10-29-2022 08:36-0400 Body weight 112.58 kg Cassie Sena [employer] ANALYST.PRINTING ESTIMATOR Work Phone: [facility] 10-29-2022 08:36-0400 Diastolic blood pressure 60 mm[Hg] Cassie Amherst [employer] ANALYST.PRINTING ESTIMATOR Work Phone: [facility] 10-29-2022 08:36-0400 Systolic blood pressure 120 mm[Hg] Cassie Sena [employer] ANALYST.PRINTING ESTIMATOR Work Phone: [facility] 09-16-2022 10:11-0400 Body height 154.9 cm Keyon Halina DPM Work Phone: [facility] 09-16-2022 10:11-0400 Body weight 107.5 kg Keyon Halina DPM Work Phone: [facility] 09-16-2022 10:11-0400 Respiratory rate 16 /min Keyon Del Angelman DPM Work Phone: [facility] 05-31-2022 09:49-0400 Body height 154.[address] Ervin Donnelly Work Phone: [facility] 05-31-2022 09:49-0400 Body mass index (BMI) [Ratio] 46.6 kg/m2 Dr. Ervin Donnelly Work Phone: [facility] 05-31-2022 09:49-0400 Body weight 112.[address] Ervin Donnelly Work Phone: [facility] 05-31-2022 09:49-0400 Diastolic blood pressure 77 mm[Hg] Dr. Ervin Donnelly Work Phone: [facility] 05-31-2022 09:49-0400 Heart rate 70 /min Dr. Ervin Donnelly Work Phone: [facility] 05-31-2022 09:49-0400 Respiratory rate 20 /min Dr. Ervin Donnelly Work Phone: [facility] 05-31-2022 09:49-0400 SaO2% (BldA) [Mass fraction] 98 % Dr. Ervin Donnelly Work Phone: [facility] 05-31-2022 09:49-0400 Systolic blood pressure 139 mm[Hg] Dr. Ervin Donnelly Work Phone: [facility] 05-27-2022 10:38-0400 Body mass index (BMI) [Ratio] 46 kg/m2 Dr. Ervin Donnelly Work Phone: [facility] 05-27-2022 10:38-0400 Body temperature 96.4 [degF] Dr. Ervin Donnelly Work Phone: [facility] 05-27-2022 10:38-0400 Body weight 110.[address] Ervin Donnelly Work Phone: [facility] 05-27-2022 10:38-0400 Diastolic blood pressure 75 mm[Hg] Dr. Ervin Donnelly Work Phone: [facility] 05-27-2022 10:38-0400 Heart rate 71 /min Dr. Ervin Donnelly Work Phone: [facility] 05-27-2022 10:38-0400 Respiratory rate 20 /min Dr. Ervin Donnelly Work Phone: [facility] 05-27-2022 10:38-0400 SaO2% (BldA) [Mass fraction] 97 % Dr. Ervin Donnelly Work Phone: [facility] 05-27-2022 10:38-0400 Systolic blood pressure 153 mm[Hg] Dr. Ervin Donnelly Work Phone: [facility] 05-08-2022 14:48-0400 Diastolic blood pressure 52 mm[Hg] Dr. Ervin Donnelly Work Phone: [facility] 05-08-2022 14:48-0400 Heart rate 82 /min Dr. Ervin Donnelly Work Phone: [facility] 05-08-2022 14:48-0400 Respiratory rate 20 /min Dr. Ervin Donnelly Work Phone: [facility] 05-08-2022 14:48-0400 Systolic blood pressure 135 mm[Hg] Dr. Ervin Donnelly Work Phone: [facility] 05-08-2022 14:42-0400 SaO2% (BldA) [Mass fraction] 98 % Dr. Ervin Donnelly Work Phone: [facility] 05-08-2022 13:14-0400 Body height 154.[address] Ervin Donnelly Work Phone: [facility] 05-08-2022 13:14-0400 Body mass index (BMI) [Ratio] 44.4 kg/m2 Dr. Ervin Donnelly Work Phone: [facility] 05-08-2022 13:14-0400 Body temperature 98.7 [degF] Dr. Ervin Donnelly Work Phone: [facility] 05-08-2022 13:14-0400 Body weight 106.[address] Ervin Donnelly Work Phone: [facility] 03-01-2022 10:39-0500 Body height 154.[address] Ervin Donnelly Work Phone: 5(902)[phone] [address] 03-01-2022 10:39-0500 Body mass index (BMI) [Ratio] 45.2 kg/m2 Dr. Ervin Donnelly Work Phone: [facility] 03-01-2022 10:39-0500 Body temperature 98 [degF] Dr. Ervin Donnelly Work Phone: [facility] 03-01-2022 10:39-0500 Body weight 108.[address] Ervin Donnelly Work Phone: [facility] 03-01-2022 10:39-0500 Diastolic blood pressure 91 mm[Hg] Dr. Ervin Donnelly Work Phone: [facility] 03-01-2022 10:39-0500 Heart rate 81 /min Dr. Ervin Donnelly Work Phone: [facility] 03-01-2022 10:39-0500 Respiratory rate 18 /min Dr. Ervin Donnelly Work Phone: [facility] 03-01-2022 10:39-0500 SaO2% (BldA) [Mass fraction] 99 % Dr. Ervin Donnelly Work Phone: [facility] 03-01-2022 10:39-0500 Systolic blood pressure 130 mm[Hg] Dr. Ervin Donnelly Work Phone: [facility] 01-12-2022 11:12-0500 Body weight 107.5 kg Linda Restrepo [employer] ANALYST.CNM Work Phone: [facility] 01-12-2022 11:12-0500 Diastolic blood pressure 80 mm[Hg] Linda Restrepo [employer] ANALYST.CNM Work Phone: [facility] 01-12-2022 11:12-0500 Systolic blood pressure 132 mm[Hg] Linda Restrepo [employer] ANALYST.CNM Work Phone: [facility] 01-08-2022 08:23-0500 Diastolic blood pressure 76 mm[Hg] Linda Restrepo [employer] ANALYST.CNM Work Phone: [facility] 01-08-2022 08:23-0500 Systolic blood pressure 162 mm[Hg] Linda Restrepo [employer] ANALYST.CNM Work Phone: [facility] 12-23-2021 10:47-0500 Body weight 106.96 kg Linda Restrepo N[employer] ANALYST.CNM Work Phone: [facility] 12-23-2021 10:47-0500 Diastolic blood pressure 78 mm[Hg] Linda Restrepo [employer] ANALYST.CNM Work Phone: [facility] 12-23-2021 10:47-0500 Systolic blood pressure 144 mm[Hg] Linda Restrepo [employer] ANALYST.CNM Work Phone: [facility] 12-03-2021 13:01-0400 Body height 154.[address] Ervin Donnelly Work Phone: [facility] Work Phone: 12-03-2021 13:01-0400 Body mass index (BMI) [Ratio] 43.8 kg/m2 Dr. Ervin Donnelly Work Phone: [facility] Work Phone: 12-03-2021 13:01-0400 Body weight 105.[address] Ervin Donnelly Work Phone: [facility] Work Phone: 12-03-2021 13:01-0400 Diastolic blood pressure 68 mm[Hg] Dr. Ervin Donnelly Work Phone: [facility] Work Phone: 12-03-2021 13:01-0400 Heart rate 84 /min Dr. Ervin Donnelly Work Phone: [facility] Work Phone: 12-03-2021 13:01-0400 Respiratory rate 16 /min Dr. Ervin Donnelly Work Phone: [facility] Work Phone: 12-03-2021 13:01-0400 Systolic blood pressure 120 mm[Hg] Dr. Ervin Donnelly Work Phone: [facility] Work Phone: 09-12-2021 16:20-0400 Body temperature 99.7 [degF] Dr. Ervin Donnelly Work Phone: [facility] Work Phone: 09-12-2021 16:20-0400 Diastolic blood pressure 78 mm[Hg] Dr. Ervin Donnelly Work Phone: [facility] Work Phone: 09-12-2021 16:20-0400 Heart rate 88 /min Dr. Ervin Donnelly Work Phone: [facility] Work Phone: 09-12-2021 16:20-0400 Respiratory rate 18 /min Dr. Ervin Donnelly Work Phone: [facility] Work Phone: 09-12-2021 16:20-0400 SaO2% (BldA) [Mass fraction] 99 % Dr. Ervin Donnelly Work Phone: [facility] Work Phone: 09-12-2021 16:20-0400 Systolic blood pressure 134 mm[Hg] Dr. Ervin Donnelly Work Phone: [facility] Work Phone: 09-12-2021 12:07-0400 Body height 154.[address] Ervin Donnelly Work Phone: [facility] Work Phone: 09-12-2021 12:07-0400 Body mass index (BMI) [Ratio] 43.4 kg/m2 Dr. Ervin Donnelly Work Phone: [facility] Work Phone: 09-12-2021 12:07-0400 Body weight 104.[address] Ervin Donnelly Work Phone: [facility] Work Phone: 09-12-2021 11:25-0400 Body temperature 102 [degF] Merrill Chaves MD Work Phone: [facility] 09-12-2021 11:25-0400 Body weight 107.05 kg Merrill Chaves MD Work Phone: [facility] 09-12-2021 11:25-0400 Diastolic blood pressure 86 mm[Hg] Merrill Chaves MD Work Phone: [facility] 09-12-2021 11:25-0400 Heart rate 103 /min Merrill Chaves MD Work Phone: [facility] 09-12-2021 11:25-0400 Respiratory rate 20 /min Merrill Chaves MD Work Phone: [facility] 09-12-2021 11:25-0400 SaO2% (BldA) [Mass fraction] 98 % Merrill Chaves MD Work Phone: [facility] 09-12-2021 11:25-0400 Systolic blood pressure 126 mm[Hg] Merrill Chaves MD Work Phone: [facility] 09-09-2021 10:22-0400 Body temperature 97.8 [degF] Dr. Ervin Donnelly Work Phone: [facility] Work Phone: 09-09-2021 10:22-0400 Diastolic blood pressure 69 mm[Hg] Dr. Ervin Donnelly Work Phone: [facility] Work Phone: 09-09-2021 10:22-0400 Heart rate 89 /min Dr. Ervin Donnelly Work Phone: [facility] Work Phone: 09-09-2021 10:22-0400 Systolic blood pressure 134 mm[Hg] Dr. Ervin Donnelly Work Phone: [facility] Work Phone: 09-02-2021 10:13-0400 Respiratory rate 16 /min Dr. Ervin Donnelly Work Phone: [facility] Work Phone: 08-03-2021 13:13-0400 Body height 154.[address] Ervin Donnelly Work Phone: [facility] Work Phone: 08-03-2021 13:13-0400 Body mass index (BMI) [Ratio] 42.7 kg/m2 Dr. Ervin Donnelly Work Phone: [facility] Work Phone: 08-03-2021 13:13-0400 Body weight 102.[address] Ervin Donnelly Work Phone: [facility] Work Phone: 08-03-2021 12:06-0400 Body temperature 98.6 [degF] Dr. Ervin Donnelly Work Phone: [facility] Work Phone: 08-03-2021 12:06-0400 Diastolic blood pressure 68 mm[Hg] Dr. Ervin Donnelly Work Phone: [facility] Work Phone: 08-03-2021 12:06-0400 Heart rate 88 /min Dr. Ervin Donnelly Work Phone: [facility] Work Phone: 08-03-2021 12:06-0400 Respiratory rate 16 /min Dr. Ervin Donnelly Work Phone: [facility] Work Phone: 08-03-2021 12:06-0400 SaO2% (BldA) [Mass fraction] 97 % Dr. Ervin Donnelly Work Phone: [facility] Work Phone: 08-03-2021 12:06-0400 Systolic blood pressure 117 mm[Hg] Dr. Ervin Donnelly Work Phone: [facility] Work Phone: 07-15-2021 06:51-0400 Heart rate 73 /min Dr. Ervin Donnelly Work Phone: [facility] Work Phone: 07-15-2021 06:51-0400 Respiratory rate 18 /min Dr. Ervin Donnelly Work Phone: [facility] Work Phone: 07-15-2021 06:35-0400 Body temperature 97.4 [degF] Dr. Ervin Donnelly Work Phone: [facility] Work Phone: 07-15-2021 06:35-0400 Diastolic blood pressure 58 mm[Hg] Dr. Ervin Donnelly Work Phone: [facility] Work Phone: 07-15-2021 06:35-0400 SaO2% (BldA) [Mass fraction] 98 % Dr. Ervin Donnelly Work Phone: [facility] Work Phone: 07-15-2021 06:35-0400 Systolic blood pressure 112 mm[Hg] Dr. Ervin Donnelly Work Phone: [facility] Work Phone: 07-14-2021 14:33-0400 Body weight 99.[address] Ervin Donnelly Work Phone: [facility] Work Phone: 07-14-2021 13:00-0400 Respiratory rate 18 /min Dr. Ervin Donnelly Work Phone: [facility] Work Phone: 07-14-2021 10:58-0400 Body temperature 98.5 [degF] Dr. Ervin Donnelly Work Phone: [facility] Work Phone: 07-14-2021 10:58-0400 Heart rate 106 /min Dr. Ervin Donnelly Work Phone: [facility] Work Phone: 07-14-2021 10:58-0400 SaO2% (BldA) [Mass fraction] 95 % Dr. Ervin Donnelly Work Phone: [facility] Work Phone: 07-13-2021 13:43-0400 Diastolic blood pressure 63 mm[Hg] Dr. Ervin Donnelly Work Phone: [facility] Work Phone: 07-13-2021 13:43-0400 Systolic blood pressure 110 mm[Hg] Dr. Ervin Donnelly Work Phone: [facility] Work Phone: 07-08-2021 10:55-0400 Body height 154.[address] Ervin Donnelly Work Phone: [facility] Work Phone: 07-08-2021 10:55-0400 Body weight 102.[address] Ervin Donnelly Work Phone: [facility] Work Phone: 07-08-2021 07:06-0400 Body temperature 97.5 [degF] Dr. Ervin Donnelly Work Phone: [facility] Work Phone: 07-08-2021 07:06-0400 Diastolic blood pressure 52 mm[Hg] Dr. Ervin Donnelly Work Phone: [facility] Work Phone: 07-08-2021 07:06-0400 Heart rate 92 /min Dr. Ervin Donnelly Work Phone: [facility] Work Phone: 07-08-2021 07:06-0400 Respiratory rate 16 /min Dr. Ervin Donnelly Work Phone: [facility] Work Phone: 07-08-2021 07:06-0400 SaO2% (BldA) [Mass fraction] 96 % Dr. Ervin Donnelly Work Phone: [facility] Work Phone: 07-08-2021 07:06-0400 Systolic blood pressure 109 mm[Hg] Dr. Ervin Donnelly Work Phone: [facility] Work Phone: 07-06-2021 16:10-0400 Body mass index (BMI) [Ratio] 42.7 kg/m2 Dr. Ervin Donnelly Work Phone: [facility] Work Phone: 07-06-2021 13:20-0400 Body temperature 98.4 [degF] Dr. Ervin Donnelly Work Phone: [facility] Work Phone: 07-06-2021 13:20-0400 Diastolic blood pressure 66 mm[Hg] Dr. Ervin Donnelly Work Phone: [facility] Work Phone: 07-06-2021 13:20-0400 Heart rate 90 /min Dr. Ervin Donnelly Work Phone: [facility] Work Phone: 07-06-2021 13:20-0400 Respiratory rate 16 /min Dr. Ervin Donnelly Work Phone: [facility] Work Phone: 07-06-2021 13:20-0400 SaO2% (BldA) [Mass fraction] 99 % Dr. Ervin Donnelly Work Phone: [facility] Work Phone: 07-06-2021 13:20-0400 Systolic blood pressure 143 mm[Hg] Dr. Ervin Donnelly Work Phone: [facility] Work Phone: 07-06-2021 12:22-0400 Body weight 102.[address] Ervin Donnelly Work Phone: [facility] Work Phone: 07-04-2021 23:11-0400 Heart rate 86 /min Dr. Ervin Donnelly Work Phone: [facility] Work Phone: 07-04-2021 21:36-0400 Body temperature 98.7 [degF] Dr. Ervin Donnelly Work Phone: [facility] Work Phone: 07-04-2021 21:36-0400 Diastolic blood pressure 56 mm[Hg] Dr. Ervin Donnelly Work Phone: [facility] Work Phone: 07-04-2021 21:36-0400 Respiratory rate 18 /min Dr. Ervin Donnelly Work Phone: [facility] Work Phone: 07-04-2021 21:36-0400 SaO2% (BldA) [Mass fraction] 99 % Dr. Ervin Donnelly Work Phone: [facility] Work Phone: 07-04-2021 21:36-0400 Systolic blood pressure 105 mm[Hg] Dr. Ervin Donnelly Work Phone: [facility] Work Phone: 07-04-2021 09:57-0400 Body height 154.[address] Ervin Donnelly Work Phone: [facility] Work Phone: 07-04-2021 09:57-0400 Body mass index (BMI) [Ratio] 42.7 kg/m2 Dr. Ervin Donnelly Work Phone: [facility] Work Phone: 07-04-2021 09:57-0400 Body weight 102.[address] Ervin Donnelly Work Phone: [facility] Work Phone: 07-04-2021 07:17-0400 Body temperature 102.2 [degF] Dr. Ervin Donnelly Work Phone: [facility] Work Phone: 07-04-2021 06:00-0400 Diastolic blood pressure 58 mm[Hg] Dr. Ervin Donnelly Work Phone: [facility] Work Phone: 07-04-2021 06:00-0400 Heart rate 105 /min Dr. Ervin Donnelly Work Phone: [facility] Work Phone: 07-04-2021 06:00-0400 Respiratory rate 20 /min Dr. Ervin Donnelly Work Phone: [facility] Work Phone: 07-04-2021 06:00-0400 SaO2% (BldA) [Mass fraction] 94 % Dr. Ervin Donnelly Work Phone: [facility] Work Phone: 07-04-2021 06:00-0400 Systolic blood pressure 118 mm[Hg] Dr. Ervin Donnelly Work Phone: [facility] Work Phone: 07-04-2021 02:22-0400 Heart rate 90 /min Dr. Ervin Donnelly Work Phone: [facility] Work Phone: 07-04-2021 02:22-0400 Respiratory rate 16 /min Dr. Ervin Donnelly Work Phone: [facility] Work Phone: 07-04-2021 02:22-0400 SaO2% (BldA) [Mass fraction] 98 % Dr. Ervin Donnelly Work Phone: [facility] Work Phone: 07-04-2021 01:24-0400 Diastolic blood pressure 54 mm[Hg] Dr. Ervin Donnelly Work Phone: [facility] Work Phone: 07-04-2021 01:24-0400 Systolic blood pressure 108 mm[Hg] Dr. Ervin Donnelly Work Phone: [facility] Work Phone: 07-04-2021 01:10-0400 Body temperature 98.5 [degF] Dr. Ervin Donnelly Work Phone: [facility] Work Phone: 07-03-2021 23:39-0400 Body height 154.[address] Ervin Donnelly Work Phone: [facility] Work Phone: 07-03-2021 23:39-0400 Body mass index (BMI) [Ratio] 43.8 kg/m2 Dr. Ervin Donnelly Work Phone: [facility] Work Phone: 07-03-2021 23:39-0400 Body weight 105.[address] Ervin Donnelly Work Phone: [facility] Work Phone: 07-03-2021 22:45-0400 Body temperature 103.6 [degF] Dr. Ervin Donnelly Work Phone: [facility] Work Phone: 07-03-2021 22:45-0400 Diastolic blood pressure 55 mm[Hg] Dr. Ervin Donnelly Work Phone: [facility] Work Phone: 07-03-2021 22:45-0400 Heart rate 102 /min Dr. Ervin Donnelly Work Phone: [facility] Work Phone: 07-03-2021 22:45-0400 Respiratory rate 20 /min Dr. Ervin Donnelly Work Phone: [facility] Work Phone: 07-03-2021 22:45-0400 SaO2% (BldA) [Mass fraction] 100 % Dr. Ervin Donnelly Work Phone: [facility] Work Phone: 07-03-2021 22:45-0400 Systolic blood pressure 119 mm[Hg] Dr. Ervin Donnelly Work Phone: [facility] Work Phone: 07-01-2021 11:15-0400 Body weight 105.[address] Ervin Donnelly Work Phone: [facility] Work Phone: 06-26-2021 15:38-0400 Body mass index (BMI) [Ratio] 45.6 kg/m2 Dr. Ervin Donnelly Work Phone: [facility] Work Phone: 06-26-2021 14:09-0400 Body temperature 99.8 [degF] Dr. Ervin Donnelly Work Phone: [facility] Work Phone: 06-26-2021 14:09-0400 Diastolic blood pressure 52 mm[Hg] Dr. Ervin Donnelly Work Phone: [facility] Work Phone: 06-26-2021 14:09-0400 Heart rate 92 /min Dr. Ervin Donnelly Work Phone: [facility] Work Phone: 06-26-2021 14:09-0400 Respiratory rate 16 /min Dr. Ervin Donnelly Work Phone: [facility] Work Phone: 06-26-2021 14:09-0400 SaO2% (BldA) [Mass fraction] 96 % Dr. Ervin Donnelly Work Phone: [facility] Work Phone: 06-26-2021 14:09-0400 Systolic blood pressure 96 mm[Hg] Dr. Ervin Donnelly Work Phone: [facility] Work Phone: 06-24-2021 16:44-0400 Inhaled oxygen flow rate 2 L/min Dr. Ervin Donnelly Work Phone: [facility] Work Phone: 06-24-2021 15:44-0400 Body height 154.[address] Ervin Donnelly Work Phone: [facility] Work Phone: 06-24-2021 15:44-0400 Body mass index (BMI) [Ratio] 44.5 kg/m2 Dr. Ervin Donnelly Work Phone: [facility] Work Phone: 06-24-2021 15:44-0400 Body weight [address] Ervin Donnelly Work Phone: [facility] Work Phone: 06-22-2021 15:32-0400 Body weight 106.[address] Ervin Donnelly Work Phone: [facility] Work Phone: 05-22-2021 09:05-0400 Body mass index (BMI) [Ratio] 43.4 kg/m2 Dr. Ervin Donnelly Work Phone: [facility] Work Phone: 05-22-2021 09:05-0400 Body temperature 97.8 [degF] Dr. Ervin Donnelly Work Phone: [facility] Work Phone: 05-22-2021 09:05-0400 Body weight 104.[address] Ervin Donnelly Work Phone: [facility] Work Phone: 05-22-2021 09:05-0400 Diastolic blood pressure 77 mm[Hg] Dr. Ervin Donnelly Work Phone: [facility] Work Phone: 05-22-2021 09:05-0400 Heart rate 86 /min Dr. Ervin Donnelly Work Phone: [facility] Work Phone: 05-22-2021 09:05-0400 Respiratory rate 19 /min Dr. Ervin Donnelly Work Phone: [facility] Work Phone: 05-22-2021 09:05-0400 SaO2% (BldA) [Mass fraction] 97 % Dr. Ervin Donnelly Work Phone: [facility] Work Phone: 05-22-2021 09:05-0400 Systolic blood pressure 135 mm[Hg] Dr. Ervin Donnelly Work Phone: [facility] Work Phone: 05-22-2021 09:05-0400 Body mass index (BMI) [Ratio] 43.4 kg/m2 Dr. Ervin Donnelly Work Phone: [facility] Work Phone: 05-22-2021 09:05-0400 Body temperature 97.8 [degF] Dr. Ervin Donnelly Work Phone: [facility] Work Phone: 05-22-2021 09:05-0400 Body weight 104.[address] Ervin Donnelly Work Phone: [facility] Work Phone: 05-22-2021 09:05-0400 Diastolic blood pressure 77 mm[Hg] Dr. Ervin Donnelly Work Phone: [facility] Work Phone: 05-22-2021 09:05-0400 Heart rate 86 /min Dr. Ervin Donnelly Work Phone: [facility] Work Phone: 05-22-2021 09:05-0400 Respiratory rate 19 /min Dr. Ervin Donnelly Work Phone: [facility] Work Phone: 05-22-2021 09:05-0400 SaO2% (BldA) [Mass fraction] 97 % Dr. Ervin Donnelly Work Phone: [facility] Work Phone: 05-22-2021 09:05-0400 Systolic blood pressure 135 mm[Hg] Dr. Ervin Donnelly Work Phone: [facility] Work Phone: 05-12-2021 21:09-0400 Diastolic blood pressure 63 mm[Hg] Dr. Ervin Donnelly Work Phone: [facility] Work Phone: 05-12-2021 21:09-0400 Heart rate 78 /min Dr. Ervin Donnelly Work Phone: [facility] Work Phone: 05-12-2021 21:09-0400 Respiratory rate 18 /min Dr. Ervin Donnelly Work Phone: [facility] Work Phone: 05-12-2021 21:09-0400 SaO2% (BldA) [Mass fraction] 95 % Dr. Ervin Donnelly Work Phone: [facility] Work Phone: 05-12-2021 21:09-0400 Systolic blood pressure 121 mm[Hg] Dr. Ervin Donnelly Work Phone: [facility] Work Phone: 05-12-2021 19:20-0400 Body temperature 98.7 [degF] Dr. Ervin Donnelly Work Phone: [facility] Work Phone: 05-12-2021 15:02-0400 Body height 154.[address] Ervin Donnelly Work Phone: [facility] Work Phone: 05-12-2021 15:02-0400 Body mass index (BMI) [Ratio] 43.4 kg/m2 Dr. Ervin Donnelly Work Phone: [facility] Work Phone: 05-12-2021 15:02-0400 Body weight 104.[address] Ervin Donnelly Work Phone: [facility] Work Phone: 04-14-2021 11:17-0500 Body weight 104.[address] Ervin Donnelly Work Phone: [facility] Work Phone: 04-14-2021 10:17-0500 Body weight 104.[address] Ervin Donnelly Work Phone: [facility] Work Phone: 04-01-2021 10:11-0500 Body mass index (BMI) [Ratio] 44 kg/m2 Dr. Ervin Donnelly Work Phone: [facility] Work Phone: 04-01-2021 10:11-0500 Body temperature 99.3 [degF] Dr. Ervin Donnelly Work Phone: [facility] Work Phone: 04-01-2021 10:11-0500 Body weight 105.[address] Ervin Donnelly Work Phone: [facility] Work Phone: 04-01-2021 10:11-0500 Diastolic blood pressure 75 mm[Hg] Dr. Ervin Donnelly Work Phone: [facility] Work Phone: 04-01-2021 10:11-0500 Heart rate 87 /min Dr. Ervin Donnelly Work Phone: [facility] Work Phone: 04-01-2021 10:11-0500 Respiratory rate 16 /min Dr. Ervin Donnelly Work Phone: [facility] Work Phone: 04-01-2021 10:11-0500 SaO2% (BldA) [Mass fraction] 97 % Dr. Ervin Donnelly Work Phone: [facility] Work Phone: 04-01-2021 10:11-0500 Systolic blood pressure 146 mm[Hg] Dr. Ervin Donnelly Work Phone: [facility] Work Phone: 03-25-2021 10:22-0500 Body mass index (BMI) [Ratio] 43.8 kg/m2 Dr. Ervin Donnelly Work Phone: [facility] Work Phone: 03-25-2021 10:22-0500 Body weight 105.[address] Ervin Donnelly Work Phone: [facility] Work Phone: 03-25-2021 10:22-0500 Diastolic blood pressure 78 mm[Hg] Dr. Ervin Donnelly Work Phone: [facility] Work Phone: 03-25-2021 10:22-0500 Heart rate 80 /min Dr. Ervin Donnelly Work Phone: [facility] Work Phone: 03-25-2021 10:22-0500 Respiratory rate 6 /min Dr. Ervin Donnelly Work Phone: [facility] Work Phone: 03-25-2021 10:22-0500 Systolic blood pressure 146 mm[Hg] Dr. Ervin Donnelly Work Phone: [facility] Work Phone: 03-25-2021 10:03-0500 Body weight 105.[address] Ervin Donnelly Work Phone: [facility] Work Phone: 03-04-2021 13:12-0500 Body weight 107.[address] Ervin Donnelly Work Phone: [facility] Work Phone: 02-09-2021 11:20-0500 Body weight 109.[address] Ervin Donnelly Work Phone: [facility] Work Phone: Encounters Encounter Date Encounter Type Care Provider Facility Start: 09-13-2024 ambulatory Peter V Sibilia Facili ty:[facility] Start: 09-12-2024 ambulatory Peter V Sibilia Facili ty:[facility] Start: 09-11-2024 ambulatory Peter V Sibilia Facili ty:[facility] Start: 09-10-2024 ambulatory Peter V Sibilia Facili ty:[facility] Start: 09-09-2024 ambulatory Peter Mcgoverni ty:[facility] Start: 09-08-2024 End: 09-08-2024 Dr. Peter Ambrocio MD -Medical Out Work Phone: Start: 09-08-2024 End: 09-08-[address] Moreno Donnelly MD Work Phone: -Medical Out Start: 09-07-2024 End: 09-07-2024 Dr. Peter Ambrocio MD -Medical Out Work Phone: Start: 09-07-2024 End: 09-07-[address] Moreno Donnelly MD Work Phone: -Medical Out Start: 09-06-2024 ambulatory Peter Sales Lolly Froilani ty:[facility] Start: 09-06-2024 End: 09-06-2024 Dr. Moreno Donnelly MD Work Phone: -Emergency Department Work Phone: Start: 09-06-2024 End: 09-06-2024 Emergency department patient visit Dr. Moreno Donnelly MD Work Phone: -Emergency Department Start: 09-05-2024 End: 09-05-2024 Dr. Peter Ambrocio MD -Medical Out Work Phone: Start: 09-05-2024 End: 09-05-[address] Moreno Donnelly MD Work Phone: -Medical Out Start: 09-05-2024 Dr. Ervin Donnelly MD -Laboratory [facility] Work Phone: Start: 09-05-2024 ambulatory Moreno Longo lity:[facility] Start: 08-23-2024 End: 08-23-[address] Moreno Donnelly MD Work Phone: -Laboratory Specimen Start: 08-23-2024 End: 08-23-2024 Dr. Peter Ambrocio MD -Laboratory Specim en Work Phone: Start: 08-22-2024 End: 08-23-[address] Moreno Donnelly MD Work Phone: -Outpatient Bone Densitometry Start: 08-22-2024 End: 08-22-2024 Dr. Moreno Donnelly MD -Outpatient Bone Densitometry Work Phone: Start: 08-22-2024 End: 08-22-2024 ambulatory Moreno Donnelly Facility:[facility] Start: 08-02-2024 End: 08-02-[address] Moreno Donnelly MD Work Phone: [facility] Work Phone: Start: 08-02-2024 End: 08-02-2024 Dr. Peter Ambrocio MD -Radiology [facility] Work Phone: Start: 08-02-2024 End: 08-02-2024 ambulatory Moreno Donnelly Facility:[facility] Start: 07-25-2024 End: 07-25-[address] Moreno Donnelly MD Work Phone: [facility] Work Phone: Start: 07-25-2024 End: 07-25-2024 Dr. Moreno Donnelly MD -Laboratory [facility] Start: 07-25-2024 End: 07-25-2024 ambulatory Moreno Donnelly Facility:[facility] Start: 07-19-2024 End: 07-19-[address] Moreno Donnelly MD Work Phone: [facility] Work Phone: Start: 07-19-2024 End: 07-19-2024 Dr. Moreno Donnelly MD -Cardiovascular Services Work Phone: Start: 07-19-2024 End: 07-19-2024 ambulatory Moreno Donnelly Facility:[facility] Start: 07-05-2024 End: 07-05-[address] Moreno Donnelly MD Work Phone: [facility] Work Phone: Start: 07-05-2024 End: 07-05-2024 Jeanie Arteaga TECH WRITER-C -Radiology [facility] Work Phone: Start: 07-05-2024 End: 07-05-2024 ambulatory Jeanie Arteaga Facility:[facility] Start: 06-14-2024 End: 06-14-2024 ambulatory Benigno Suárez Facility:[facility] Start: 06-14-2024 End: 06-14-2024 Dr. Benigno Suárez MD -Physical Therapy Work Phone: Start: 05-29-2024 Dr. Benigno Suárez MD -Ph ysical Therapy Work Phone: Start: 05-23-2024 End: 05-23-[address] Moreno Donnelly MD Work Phone: [facility] Work Phone: Start: 05-23-2024 End: 05-23-2024 Filemon RED -Pulmonary Services/Neurology Work Phone: Start: 05-23-2024 End: 05-23-2024 ambulatory Filemon Danielle Facility:[facility] Start: 05-16-2024 End: 05-16-2024 Filemon RED -[facility] Work Phone: Start: 05-16-2024 End: 05-16-2024 ambulatory Filemon Danielle Facility:[facility] Start: 05-10-2024 End: 05-10-2024 Dr. Moreno Donnelly MD -Laboratory, [facility] Work Phone: Start: 05-10-2024 End: 05-10-2024 ambulatory Moreno Donnelly Facility:[facility] Start: 05-03-2024 End: 05-03-2024 Dr. Benigno Suárez MD -[facility] Work Phone: Start: 05-03-2024 End: 05-03-2024 ambulatory Benigno Suárez Facility:[facility] Start: 05-01-2024 End: 05-01-2024 ambulatory LINDA RESTREPO Facility:[facility] Start: 05-01-2024 End: 05-01-2024 Patient encounter procedure Linda Restrepo APRN.CNM Work Phone: OB/Gynecology Comment on above: Epidermal inclusion cyst (Primary Dx) Start: 04-24-2024 End: 04-24-2024 Dr. Moreno Donnelly MD -Laboratory, [facility] Start: 04-24-2024 End: 04-24-2024 ambulatory [facility] Facility:[facility] Start: 04-21-2024 End: 04-21-2024 Dr. Peter Ambrocio MD -Laboratory Work Phone: Start: 04-21-2024 End: 04-21-2024 ambulatory [facility] Facility:[facility] Start: 04-20-2024 End: 04-20-2024 Dr. Peter Ambrocio MD -Laboratory, Speci men Work Phone: Start: 04-20-2024 End: 04-20-2024 ambulatory [facility]hamida Facility:[facility] Start: 04-19-2024 End: 04-19-2024 Dr. Peter Ambrocio MD -Laboratory, Speci men Work Phone: Start: 04-19-2024 End: 04-19-2024 ambulatory [facility] Facility:[facility] Start: 04-18-2024 End: 04-18-2024 Dr. Peter Ambrocio MD -Laboratory Work Phone: Start: 04-18-2024 End: 04-18-2024 ambulatory [facility] Facility:[facility] Start: 04-11-2024 End: 04-11-2024 Jeanie Arteaga TECH WRITER-C -Laboratory, Specime n Work Phone: Start: 04-11-2024 End: 04-11-2024 ambulatory Jeanie Arteaga Facility:[facility] Start: 03-26-2024 End: 03-26-2024 Dr. Moreno Donnelly MD -[facility] Work Phone: Start: 03-26-2024 End: 03-26-2024 ambulatory Moreno Donnelly Facility:[facility] Start: 03-08-2024 End: 03-08-2024 Dr. Moreno Donnelly MD -Laboratory, [facility] Start: 03-08-2024 End: 03-08-2024 ambulatory Moreno Donnelly Facility:[facility] Start: 02-23-2024 End: 02-23-2024 Dr. Moreno Donnelly MD -Laboratory, [facility] Start: 02-23-2024 End: 02-23-2024 ambulatory Moreno Donnelly Facility:[facility] Start: 02-13-2024 End: 02-13-2024 Dr. Moreno Donnelly MD -Laboratory, [facility] Phone: Start: 02-13-2024 End: 02-13-2024 ambulatory Moreno Donnelly Facility:[facility] Start: 02-09-2024 End: 02-09-2024 Jan Davenport NP-C -Laboratory, [facility] Start: 02-09-2024 ambulatory Indu Granados Facility:[facility] Start: 02-09-2024 End: 02-09-2024 ambulatory Jan Davenport NP Facility:[facility] Start: 01-26-2024 ambulatory Joo Higuera Facility:[facility] Start: 01-26-2024 End: 01-28-2024 Evaluation and management of inpatient Nathaly Romo Facility:[facility] Start: 01-24-2024 End: 01-24-2024 Emergency department patient visit Katelyn Davis Facility:[facility] Start: 01-17-2024 End: 01-17-2024 ambulatory Nicky Cavanaugh Facility:[facility] Start: 01-17-2024 End: 01-17-2024 ambulatory Henry Patterson Facility:[facility] Start: 01-13-2024 End: 01-13-2024 Emergency department patient visit Nicky Valdivia Facility:[facility] Start: 01-13-2024 ambulatory Indu Granados Facility:[facility] Start: 01-13-2024 End: 01-13-2024 ambulatory Indu Granados Facility:[facility] Start: 01-09-2024 ambulatory Indu Granados Facility:[facility] Start: 01-09-2024 End: 01-09-2024 ambulatory Joo Higuera Facility:[facility] Start: 01-07-2024 End: 01-07-2024 ambulatory Moreno Donnelly Facility:[facility] Start: 01-07-2024 End: 01-07-2024 ambulatory Graham RED Facility:[facility] Start: 01-05-2024 End: 01-05-2024 ambulatory Peter Orta Facility:[facility] Start: 01-03-2024 End: 01-14-2024 ambulatory Nicky Cavanaugh Facility:[facility] Start: 12-06-2023 End: 12-15-2023 ambulatory Nicky Cavanaugh Facility:[facility] Start: 12-03-2023 End: 12-03-2023 ambulatory Peter Orta Facility:[facility] Start: 11-23-2023 ambulatory Joo Higuera [facility] Start: 11-23-2023 End: 11-23-2023 ambulatory Joo Higuera Facility:[facility] Start: 11-08-2023 End: 11-14-2023 ambulatory Nicky Cavanaugh Facility:[facility] Start: 11-02-2023 End: 11-02-2023 ambulatory Joo Higuera Facility:[facility] Start: 10-14-2023 ambulatory Marisol Evangelista y:[facility] Start: 10-11-2023 End: 10-15-2023 ambulatory Nicky Cavanaugh Facility:[facility] Start: 10-03-2023 End: 10-03-2023 ambulatory LINDA RESTREPO Facility:[facility] Start: 10-03-2023 End: 10-03-2023 Patient encounter procedure Linda Restrepo N[employer] ANALYST.CNM Work Phone: OB/Gynecology Comment on above: Blood blister (Prima ry Dx) Start: 09-28-2023 End: 09-28-2023 ambulatory Indu Granados Facility:[facility] Start: 09-13-2023 End: 09-14-2023 ambulatory Nicky Cavanaugh Facility:[facility] Start: 06-14-2023 End: 06-14-[address] Moreno Donnelly Work Phone: [facility] Work Phone: Start: 06-14-2023 End: 06-14-[address] [facility] Work Phone: Start: 05-13-2023 End: 05-15-[address] Ervin Donnelly Work Phone: [facility] Work Phone: Start: 05-13-2023 End: 05-15-[address] [facility] Work [facility]: Start: 03-30-2023 Non-patient / Non-visit Dr. Ervin Donnelly Work Phone: [facility] Start: 03-30-2023 End: 03-30-[address] Ervin Donnelly Work Phone: [facility] Work Phone: Start: 03-30-2023 End: 03-30-[address] Ervin Donnelly Work Phone: [facility]-Cardiovascular Services Work Phone: Start: 03-10-2023 End: 03-10-[address] Ervin Donnelly Work Phone: [facility]-Pulmonary Medicine [facility] Work Phone: Start: 03-09-2023 End: 03-09-[address] Ervin Donnelly Work Phone: [facility] Work Phone: Start: 03-09-2023 End: 03-09-[address] Ervin Donnelly Work Phone: [facility] Start: 12-10-2022 End: 12-10-[address] 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 Ervin Donnelly Work Phone: [facility] Work Phone: Start: 11-01-2022 Telephone encounter Cassie rock N[employer] ANALYST.PRINTING ESTIMATOR Work Phone: OB/Gynecology Comment on above: Results Start: 10-29-2022 End: 10-29-2022 Patient encounter procedure Cassie Shetty N[employer] ANALYST.PRINTING ESTIMATOR Work Phone: OB/Gynecology Comment on above: Vulvar irritation (P rimary Dx) Start: 10-21-2022 End: 10-21-2022 ambulatory [facility] Work Phone: Start: 10-21-2022 End: 10-21-2022 Patient encounter procedure [facility] Start: 09-24-2022 End: 09-24-2022 ambulatory [facility] Work Phone: Start: 09-24-2022 End: 09-24-2022 Patient encounter procedure [facility]-Laboratory, Specimen Work Phone: Start: 09-16-2022 End: 09-16-2022 ambulatory KEYON MEADE Facility:[facility] Start: 09-16-2022 End: 09-16-2022 Patient encounter procedure Keyon Meade DPM Work Phone: [facility] Comment on above: Chronic pain of left ankle (Primary Dx); 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 Ervin Donnelly Work Phone: [facility] Work Phone: Start: 09-07-2022 End: 09-07-[address] Ervin Donnelly Work Phone: [facility] Start: 07-15-2022 End: 07-15-[address] Ervin Donnelly Work Phone: [facility] Work Phone: Start: 07-15-2022 End: 07-15-[address] Ervin Donnelly Work Phone: [facility] Start: 06-15-2022 End: 06-15-[address] Ervin Donnelly Work Phone: [facility] Work Phone: Start: 06-15-2022 End: 06-15-[address] Ervin Donnelly Work Phone: [facility] Start: 05-31-2022 End: 05-31-[address] Ervin Donnelly Work Phone: [facility] Start: 05-27-2022 End: 05-27-[address] Ervin Donnelly Work Phone: [facility]-Pulmonary Medicine [facility] Start: 05-08-2022 End: 05-08-2022 Emergency department patient visit Dr. Ervin Donnelly Work Phone: [facility]-Emergency Department Start: 03-28-2022 End: 03-28-[address] Ervin Donnelly Work Phone: [facility] Work Phone: Start: 03-28-2022 End: 03-28-[address] Ervin Donnelly Work Phone: [facility]-Sleep Lab Start: 03-01-2022 End: 03-01-[address] Ervin Donnelly Work Phone: [facility]-Pulmonary Medicine [facility] Start: 02-10-2022 End: 02-10-[address] Ervin Donnelly Work Phone: [facility] Work Phone: Start: 02-10-2022 End: 02-10-[address] Ervin Donnelly Work Phone: [facility]-Laboratory, [facility] Start: 01-27-2022 End: 01-27-2022 Subsequent hospital visit by physician [facility] Comment on above: Encounter for screen ing mammogram for malignant neoplasm of breast [Z12.31] Start: 01-18-2022 Telephone encounter Linda gould N[employer] ANALYST.CNM Work Phone: OB/Gynecology Comment on above: Results Start: 01-12-2022 End: 01-12-2022 Patient encounter procedure Linda Restrepo N[employer] ANALYST.CNM Work Phone: OB/Gynecology Comment on above: Pruritus of vulva (P rimary Dx) Start: 01-11-2022 Telephone encounter Linda gould N[employer] ANALYST.CNM Work Phone: OB/Gynecology Comment on above: Follow Up Start: 01-08-2022 End: 01-08-2022 Patient encounter procedure Linda Restrepo N[employer] ANALYST.CNM Work Phone: OB/Gynecology Comment on above: Vulvar itching (Prim falguni Dx); Encounter for screening mammogram for malignant neoplasm of breast Start: 12-28-2021 Telephone encounter Sarah Beth serna APRN.CNM Work Phone: OB/Gynecology Comment on above: Patient Update Start: 12-24-2021 Telephone encounter Linda gould N[employer] ANALYST.CNM Work Phone: OB/Gynecology Comment on above: Results Start: 12-23-2021 End: 12-23-2021 Patient encounter procedure Linda Restrepo APRN.CNM Work Phone: OB/Gynecology Comment on above: Vulvar dermatitis (P rimary Dx); Vulvar itching Start: 12-03-2021 End: 12-03-[address] Ervin Donnelly Work Phone: [facility] Start: 11-03-2021 End: 11-03-[address] Ervin Donnelly Work Phone: [facility] Start: 09-12-2021 End: 09-12-2021 Emergency department patient visit Dr. Ervin Donnelly Work Phone: [facility]-Emergency Department Start: 09-12-2021 End: 09-12-2021 Patient encounter procedure Merrill Chaves MD Work Phone: [facility] Comment on above: Headache, unspecifie d headache type (Primary Dx); Neck pain; Fever, unspecified fever cause Start: 09-09-2021 Non-patient / Non-visit Dr. Ervin Donnelly Work Phone: [facility] Start: 09-09-2021 End: 09-09-[address] [facility]ly [facility] Start: 09-02-2021 Non-patient / Non-visit Dr. Ervin Donnelly Work Phone: [facility] Start: 08-26-2021 Non-patient / Non-visit Dr. Ervin Donnelly Work Phone: [facility] Start: 08-20-2021 End: 08-20-[address] Ervin Donnelly Work Phone: [facility] Start: 08-03-2021 End: 08-03-[address] Er[facility] Donnelly [facility] Start: 08-03-2021 End: 08-03-2021 Dr. Er[facility] Start: 07-21-[address] Ramirez Donnelly Work Phone: [facility] Start: 07-21-2021 Dr. Ervin Donnelly Work Phone: [facility] Start: 07-14-2021 Non-patient / Non-visit Dr. Ervin Donnelly Work Phone: [facility] Inpatient Physicians Start: 07-14-2021 Dr. Ervin Donnelly Work Phone: [facility] Start: 07-06-2021 End: 07-15-2021 Evaluation and management of inpatient Dr. Er[facility]nelly [facility] Start: 07-06-2021 End: 07-15-2021 Dr. Er[facility] Start: 07-06-2021 Non-patient / Non-visit Dr. Ervin Donnelly Work Phone: [facility] Start: 07-06-2021 Dr. Ervin Donnelly Work Phone: [facility] Start: 07-05-2021 Non-patient / Non-visit Dr. Ervin Donnelly Work Phone: [facility] Start: 07-05-2021 Dr. Ervin Donnelly Work Phone: [facility] Start: 07-04-2021 End: 07-06-2021 Evaluation and management of inpatient Dr. Ervin Donnelly [facility] Start: 07-04-2021 End: 07-06-2021 Dr. Er[facility] Start: 07-03-2021 End: 07-04-2021 Emergency department patient visit Dr. Ervin Donnelly Work Phone: [facility]-Emergency Department Start: 07-03-2021 End: 07-04-2021 Dr. Ervin Donnelly Work Phone: [facility]-Emergency Department Start: 07-03-2021 End: 07-03-[address] [facility] Start: 07-03-2021 End: 07-03-2021 Dr. Er[facility] Start: 06-26-2021 End: 07-04-2021 Evaluation and management of inpatient Dr. Ervin Donnelly [facility] Start: 06-26-2021 End: 07-04-2021 Dr. Er[facility] Start: 06-26-2021 Non-patient / Non-visit Dr. Ervin Donnelly Work Phone: [facility] Inpatient Physicians Start: 06-26-2021 Dr. Ervin Donnelly Work Phone: [facility] Start: 06-25-2021 Non-patient / Non-visit Dr. Ervin Donnelly Work Phone: [facility] Start: 06-25-2021 Dr. Ervin Donnelly Work Phone: [facility] Start: 06-24-2021 Non-patient / Non-visit Dr. Ervin Donnelly Work Phone: [facility] Start: 06-24-2021 Dr. Ervin Donnelly Work Phone: [facility] Start: 06-24-2021 End: 06-26-2021 Evaluation and management of inpatient [facility] Start: 06-24-2021 End: 06-26-2021 Dr. Er[facility] Start: 06-22-2021 End: 07-14-[address] [facility] Start: 06-22-[address] Bismark Donnelly [facility] Start: 06-22-2021 End: 07-14-2021 Dr. Er[facility] Start: 05-22-2021 End: 05-22-[address] Ervin Donnelly Work Phone: [facility], Specimen Start: 05-22-2021 End: 05-22-2021 Dr. Ervin Donnelly Work Phone: [facility] Specimen Start: 05-12-2021 End: 05-12-2021 Emergency department patient visit Dr. Ervin Donnelly Work Phone: [facility] Start: 05-12-2021 End: 05-12-2021 Dr. Ervin Donnelly Work Phone: [facility] Start: 05-02-2021 End: 05-02-[address] Ervin Donnelly Work Phone: [facility] Start: 05-02-2021 End: 05-02-2021 Dr. Ervin Donnelly Work Phone: [facility] Start: 04-30-2021 End: 04-30-[address] [facility] Start: 04-30-2021 End: 04-30-2021 Dr. Er[facility] Start: 04-14-2021 End: 05-14-[address] [facility] Start: 04-14-[address] Bismark Donnelly [facility] Start: 04-14-2021 End: 05-14-2021 Dr. Er[facility] Start: 04-09-2021 Non-patient / Non-visit Dr. Ervin Donnelly Work Phone: [facility] Start: 04-09-2021 End: 04-09-[address] Ervin Donnelly Work Phone: [facility] Start: 04-09-2021 End: 04-09-2021 Dr. Er[facility] Start: 04-01-2021 End: 04-01-[address] [facility]ly [facility] Start: 04-01-2021 End: 04-01-2021 Dr. Er[facility]ly [facility] Start: 03-25-2021 End: 03-25-[address] Ervin Donnelly Work Phone: [facility] Start: 03-25-2021 End: 03-25-2021 Dr. Ervin Donnelly Work Phone: [facility] Start: 03-25-[address] Ervin Donnelly Work Phone: [facility] Start: 03-25-2021 End: 03-25-2021 Admission to same day surgery center Dr. Ervin Donnelly Work Phone: [facility] Start: 03-25-2021 End: 03-25-[address] Ervin Donnelly Work Phone: [facility] Start: 03-25-2021 End: 04-13-[address] Ervin Donnelly Work Phone: [facility] Start: 03-25-2021 End: 04-13-2021 Dr. Ervin Donnelly Work Phone: [facility] Start: 03-24-[address] Bismark Donnelly Work Phone: [facility] Start: 03-24-2021 Dr. Ervin Donnelly Work Phone: [facility] Start: 03-04-2021 End: 03-16-[address] Ervin Donnelly Work Phone: [facility] Start: 02-11-[address] Ervin Donnelly Work Phone: [facility] Specimen Start: 02-09-[address] Ervin Donnelly Work Phone: [facility] Start: 02-09-2021 End: 02-13-[address] Ervin Donnelly Work Phone: [facility] Start: 01-29-[address] Ervin Donnelly Work Phone: [facility], [facility] Start: 01-26-[address] Ervin Donnelly Work Phone: [facility] Start: 01-21-2017 End: 01-28-2017 Evaluation and management of inpatient Ernie Yusuf Facility:[facility] Start: 12-15-2016 End: 12-30-2016 Evaluation and management of inpatient KIARA PATEL) [facility] Procedures Date Procedure Procedure Detail Performing Clinician Start: 09-06-2024 Urine microscopy: red cells Dr. Moreno Donnelly MD Work Phone: Start: 09-06-2024 Urnls dip stick/tabl et reagent auto microscopy Dr. Moreno Donnelly MD Work Phone: Start: 09-06-2024 CT of thorax, abdome n and pelvis with contrast Dr. Moreno Donnelly MD Work Phone: Start: 09-06-[address] Bismark Donnelly MD Work Phone: Start: 09-06-2024 Dr. Ramirez Donnelly MD Work Phone: Start: 09-06-2024 Blood count smear mc rscp w/mnl difrntl [...] Donnelly MD Work Phone: Start: 09-05-2024 Electrophoresis: [id number] Dr. Moreno Donnelly MD Work Phone: Start: 09-05-2024 Electrophoresis: [id number] Dr. Moreno Donnelly MD Work Phone: Start: [...] Work Phone: Start: 08-23-2024 Gram stain microscopy D julissa Donnelly MD Work Phone: Start: 08-23-2024 Respiratory [...] Work Phone: Start: 04-18-2024 Gram stain microscopy Chucky Donnelly MD Work Phone: Start: 04-18-[address]24 [address] micro[address] l culture Dr. Moreno Donnelly MD Work Phone: Start: 04-18-2024 Blood count smear rscp w/mnl difrntl wbc [...] Start: 01-27-2022 End: 01-27-2022 Mammography Linda Restrepo NATIONAL OPELINT ANALYST.C [place] Work Phone: Start: 11-03-2021 Plain chest X-ray Dr. Anam Donnelly Work Phone: Start: 09-12-2021 CT of head without contrast Dr. Ervin Donnelly Work Phone: Start: 07-13-2021 End: 07-13-[address] Ervin Castanon y Work Phone: Start: 07-06-2021 End: 07-06-2021 Viral [...] Merrill dowling MD Work Phone: Start: 01-26-2017 [id number] Ernie Butlereaalexander Start: 01-26-2017 Drainage of Left Upp er Lung Lobe, Via Natural or Artificial Opening Endoscopic, Diagnostic Ernie Shaferereaux Start: 01-26-2017 Drainage of Right Up per Lung Lobe, Via Natural or Artificial Opening Endoscopic, Diagnostic Ernie Shaferereaux Start: 01-24-2017 Drainage of Spinal C anal, Percutaneous Approach, Diagnostic Ernie Shaferereaux Start: 01-09-2013 Colonoscopy Merrill dowling MD Work Phone: Bacteria identified [...] DTaP,Tdap,Td Vaccine (2 - Td or Tdap) [facility] Start: 05-01-2025 BP Controlled (<130/80) BP Controlled (<130/80) [facility] Start: 10-02-2024 BP Controlled (<130/80) BP Controlled (<130/80) [facility] Start: 09-06-2024 [facility] Start: 09-06-2024 End: 09-06-2024 [facility] Start: 09-06-2024 Blood culture [facility] Start: 09-06-2024 Urine culture [facility] Start: 09-05-2024 [facility] Start: 05-07-2024 Covid-19 Vaccine ( season) Covid-19 Vaccine () [facility] Start: 05-03-2024 Patient referral [facility] Work Phone: Start: 04-21-2024 [facility] Start: 04-20-2024 [facility] Start: 04-20-2024 End: 04-21-2024 Acid fast bacilli culture [facility] Start: 04-19-2024 [facility] Start: 04-19-2024 Acid fast bacilli culture [facility] Start: 02-15-2024 Advance Directive Discussion Advance Directive Discussion [facility] Start: 10-30-2023 BP Controlled (<130/80) BP Controlled (<130/80) [facility] Start: 10-16-2023 Influenza vaccination Influenza Vaccine (#1) [facility] Start: 03-29-2023 Covid-19 Vaccine () Covid-19 Vaccine () [facility] Start: 02-14-2023 Advance Directive Discussion Advance Directive Discussion [facility] Start: 02-04-2023 BP CONTROLLED (<130/80) BP CONTROLLED (<130/80) [facility] Start: 01-27-2023 Mammography [facility] Start: 01-27-2023 Screening for malignant neoplasm of breast Mammogram Screening [facility] Start: 01-09-2023 Colonoscopy COLONOSCOPY [facility] Start: 01-09-2023 COLORECTAL CANCER SCREENING COLORECTAL CANCER SCREENING [facility] Start: 01-09-2023 Screening for malignant neoplasm of colon [facility] Start: 10-15-2022 Influenza vaccination [facility] Start: 05-08-2022 End: 05-08-2022 [facility] Start: 03-23-2022 COVID-19 VACCINE (6 - Moderna series) COVID-19 VACCINE (6 - Moderna series) [facility] Start: 02-14-2022 ADVANCE DIRECTIVE DISCUSSION ADVANCE DIRECTIVE DISCUSSION [facility] Start: 02-14-2022 DEPRESSION ASSESSMENT DEPRESSION ASSESSMENT [facility] Start: 10-15-2021 Influenza vaccination INFLUENZA (#1) [facility] Start: 09-12-2021 [facility] Work Phone: Start: 09-08-2021 COVID-19 VACCINE (5 - Booster for Moderna series) COVID-19 VACCINE (5 - Booster for Moderna series) [facility] Start: 07-15-2021 Development of care plan [facility] Work Phone: Start: 07-15-2021 Patient discharge [facility] Work Phone: Start: 07-14-2021 Developing a treatment plan [facility] Work Phone: Start: 07-14-2021 [facility] Work Phone: Start: 07-14-2021 [facility] Work Phone: Start: 07-14-2021 Introduction of urinary catheter [facility] Work Phone: Start: 07-14-2021 Referral to service [facility] Work Phone: Start: 07-13-2021 [facility] Work Phone: Start: 07-11-2021 Wound care [facility] Work Phone: Start: 07-10-2021 [facility] Work Phone: Start: 07-07-2021 Development of care plan [facility] Work Phone: Start: 07-07-2021 Developing a treatment plan [facility] Work Phone: Start: 07-06-2021 [facility] Work Phone: Start: 07-06-2021 Admission procedure [facility] Work Phone: Start: 07-06-2021 Measuring intake and output [facility] Work Phone: Start: 07-06-2021 Patient referral to dietitian [facility] Work Phone: Start: 07-06-2021 Referral to occupational therapist [facility] Work Phone: Start: 07-06-2021 Referral to service [facility] Work Phone: Start: 07-06-2021 Vital signs measurements [facility] Work Phone: Start: 07-06-2021 [facility] Work Phone: Start: 07-06-2021 Development of care plan [facility] Work Phone: Start: 07-06-2021 Following clinical pathway protocol [facility] Work Phone: Start: 07-06-2021 Patient discharge [facility] Work Phone: Start: 07-04-2021 Patient discharge [facility] Work Phone: Start: 07-04-2021 Bacteria identified in Blood by Culture Blood Culture [facility] Work Phone: Start: 07-04-2021 End: 07-04-2021 [facility] Work Phone: Start: 07-04-2021 Following clinical pathway protocol [facility] Work Phone: Start: 07-04-2021 Assessment of risk of venous thromboembolism [facility] Work Phone: Start: 07-04-2021 Inhalation therapy procedure [facility] Work Phone: Start: 07-04-2021 Insertion of catheter into peripheral vein [facility] Work Phone: Start: 07-04-2021 Oxygen therapy [facility] Work Phone: Start: 07-04-2021 Providing care according to standard [facility] Work Phone: Start: 07-04-2021 Provision of activity privileges [facility] Work Phone: Start: 07-04-2021 Referral to occupational therapist [facility] Work Phone: Start: 07-04-2021 Referral to service [facility] Work Phone: Start: 07-04-2021 Admission procedure [facility] Work Phone: Start: 07-04-2021 Inhalation therapy procedure [facility] Work Phone: Start: 07-03-2021 Bacteria identified in Blood by Culture Blood Culture [facility] Work Phone: Start: 07-03-2021 Bacteria identified in Urine by Culture Urine Culture [facility] Work Phone: Start: 07-03-2021 Emergency dept visit high severity&threat funcj [facility] Work Phone: Start: 07-03-2021 Urine culture Urine Culture [facility] Work Phone: Start: 07-03-2021 End: 07-04-2021 [facility] Work Phone: Start: 07-02-2021 Following clinical pathway protocol [facility] Work Phone: Start: 07-01-2021 Consultation [facility] Work Phone: Start: 06-29-2021 [facility] Work Phone: Start: 06-27-2021 Developing a treatment plan [facility] Work Phone: Start: 06-27-2021 Development of care plan [facility] Work Phone: Start: 06-27-2021 [facility] Work Phone: Start: 06-26-2021 Wound care [facility] Work Phone: Start: 06-26-2021 Provision of activity privileges [facility] Work Phone: Start: 06-26-2021 Following clinical pathway protocol [facility] Work Phone: Start: 06-26-2021 Admission procedure [facility] Work Phone: Start: 06-26-2021 Measuring intake and output [facility] Work Phone: Start: 06-26-2021 Patient referral to dietitian [facility] Work Phone: Start: 06-26-2021 Referral to occupational therapist [facility] Work Phone: Start: 06-26-2021 Referral to service [facility] Work Phone: Start: 06-26-2021 Vital signs measurements [facility] Work Phone: Start: 06-26-2021 End: 06-26-2021 [facility] Work Phone: Start: 06-26-2021 Patient discharge [facility] Work Phone: Start: 06-26-2021 Application of device [facility] Work Phone: Start: 06-26-2021 Application of elastic bandage [facility] Work Phone: Start: 06-25-2021 Referral to service [facility] Work Phone: Start: 06-24-2021 Following clinical pathway protocol [facility] Work Phone: Start: 06-24-2021 Anesthesia open total hip arthroplasty [facility] Work Phone: Start: 06-24-2021 Arthrp acetblr/prox fem prostc agrft/algrft [facility] Work Phone: Start: 06-24-2021 Provision of overbed trapeze [facility] Work Phone: Start: 06-24-2021 Admission procedure [facility] Work Phone: Start: 06-24-2021 Ambulation therapy management [facility] Work Phone: Start: 06-24-2021 Application of antithromboembolic stockings [facility] Work Phone: Start: 06-24-2021 Application of device [facility] Work Phone: Start: 06-24-2021 Application of intermittent pneumatic compression device [facility] Work Phone: Start: 06-24-2021 Assessment of risk of venous thromboembolism [facility] Work Phone: Start: 06-24-2021 Catheterization of vein [facility] Work Phone: Start: 06-24-2021 Consultation [facility] Work Phone: Start: 06-24-2021 Exercises [facility] Work Phone: Start: 06-24-2021 Following clinical pathway protocol [facility] Work Phone: Start: 06-24-2021 Incentive spirometry [facility] Work Phone: Start: 06-24-2021 Introduction of urinary catheter [facility] Work Phone: Start: 06-24-2021 Measuring intake and output [facility] Work Phone: Start: 06-24-2021 Neurovascular assessment [facility] Work Phone: Start: 06-24-2021 Patient education [facility] Work Phone: Start: 06-24-2021 Procedure discontinued [facility] Work Phone: Start: 06-24-2021 Provision of activity privileges [facility] Work Phone: Start: 06-24-2021 Referral to occupational therapist [facility] Work Phone: Start: 06-24-2021 Referral to service [facility] Work Phone: Start: 06-24-2021 Vital signs measurements [facility] Work Phone: Start: 06-24-2021 Wound care [facility] Work Phone: Start: 06-24-2021 [facility] Work Phone: Start: 06-24-2021 Inhalation therapy procedure [facility] Work Phone: Start: 05-12-2021 End: 05-12-2021 [facility] Work Phone: Start: 05-12-2021 Bacteria identified in Blood by Culture Blood Culture [facility] Work Phone: Start: 05-12-2021 Bacteria identified in Urine by Culture Urine Culture [facility] Work Phone: Start: 05-12-2021 Respiratory Panel (PCR) Respiratory Panel (PCR) [facility] Work Phone: Start: 04-01-2021 Electrocardiographic procedure [facility] Work Phone: Start: 02-14-2021 ADVANCE DIRECTIVE DISCUSSION ADVANCE DIRECTIVE DISCUSSION [facility] Start: 02-14-2021 DEPRESSION ASSESSMENT DEPRESSION ASSESSMENT [facility] Start: 10-04-2020 Mammography MAMMOGRAM [facility] Start: 12-31-2019 DIABETES SCREEN DIABETES SCREEN [facility] Start: 12-31-2019 Diabetes Screening Diabetes Screening [facility] Start: 2019 BONE DENSITY BONE DENSITY [facility] Start: 2019 Bone Density Screening Bone Density Screening [facility] Start: 2019 Screening for osteoporosis Bone Density Screening [facility] Start: 12-30-2017 Creatinine measurement Serum Creatinine [facility] Start: 12-30-2017 SERUM CREATININE SERUM CREATININE [facility] Start: 01-13-2017 Pneumococcal Vaccine: 65+ (2 - PCV) Pneumococcal Vaccine: 65+ (2 - PCV) [facility] Start: 01-13-2017 PNEUMOCOCCAL: 65+ (2 - PCV) PNEUMOCOCCAL: 65+ (2 - PCV) [facility] Start: 03-10-2016 SHINGRIX VACCINE (2 of 3) SHINGRIX VACCINE (2 of 3) [facility] Start: 1999 COLOGUARD (FIT-DNA) COLOGUARD (FIT-DNA) [facility] Start: [address] COLONOGRAPHY [facility] Start: 1999 FECAL OCCULT BLOOD FECAL OCCULT BLOOD [facility] Start: 1999 Lipid 1996 panel - Serum or Plasma Lipid Screening [facility] Start: 1999 Lipid panel Lipid Screening [facility] Start: 1999 LIPID SCREEN LIPID SCREEN [facility] Start: 1999 Screening for malignant neoplasm of colon [facility] Start: 1999 SIGMOIDOSCOPY SIGMOIDOSCOPY [facility] Start: [address] [facility] Start: 01-[facility]-1972 ANNUAL PCP TEAM CHRONIC DISEASE VISIT ANNUAL PCP TEAM CHRONIC DISEASE VISIT [facility] Start: 01-11-1972 Anxiety Screening Anxiety Screening [facility] Start: 01-11-1972 BP CONTROLLED (<130/80) BP CONTROLLED (<130/80) [facility] Start: 01-11-1972 Depression Screening Depression Screening [facility] Start: 01-11-1972 HEPATITIS C SCREENING HEPATITIS C SCREENING [facility] Start: 01-11-1972 Hepatitis C screening Hepatitis C Screening [facility] Start: 1966 Adult depression screening assessment DEPRESSION SCREENING [facility] Acid fast bacilli culture [facility] Albumin/Globulin [Ma ss Ratio] in Serum or Plasma by Electrophoresis [facility] BACTERIAL VAGINOSIS AMPLIFICATION BACTERIAL VAGINOSIS AMPLIFICATION Lab Routine Vulvar itching Ordered: 12/23/2021 [facility] Work Phone: Comment on above: Ordered: 12/23/2021 BACTERIAL VAGINOSIS NAAT BACTERI AL VAGINOSIS NAAT Lab Routine Vulvar irritation 10/29/2022 9:33 AM EDT [facility] Work Phone: Biopsy vulva/perineu m 1 lesion spx BIOPSY OF VULVA Procedures Routine Vulvar dermatitis Vulvar itching Ordered: 12/29/2021 [facility] Work Phone: Comment on above: Ordered: 12/29/2021 JOHN PAUL / TRICHOMONA S AMPLIFICATION JOHN PAUL / TRICHOMONAS AMPLIFICATION Microbiology Routine Vulvar itching Ordered: 12/23/2021 [facility] Work Phone: Comment on above: Ordered: 12/23/2021 JOHN PAUL/TRICHOMONAS NAAT JOHN PAUL /TRICHOMONAS NAAT Lab Routine Vulvar irritation 10/29/2022 9:33 AM EDT [facility] Work Phone: Electrophoresis: albumin [facility] Electrophoresis: [id number] [facility] Electrophoresis: [id number] [facility] Electrophoresis: la ma globulin [facility] Globulin measurement [facility] Lipid 1996 panel - S elly or Plasma [facility] Mycobacterium sp amanda ntified in Unspecified specimen by Organism specific culture [facility] Mycobacterium sp amanda ntified in Unspecified specimen by Organism specific culture [facility] Mycobacterium sp amanda ntified in Unspecified specimen by Organism specific culture [facility] Nuclear Ab [Titer] i n Serum by Immunofluorescence [facility] Patient Education [facility] Work Phone: Patient referral [facility] Work Phone: Protein electrophore sis panel - Serum or Plasma [facility] End: 02-07-2023 Screening mammography bi 2-view breast inc cad SHANKAR SCREENING Radiology Routine Encounter for screening mammogram for malignant neoplasm of breast 1 Occurrences starting 01/08/2022 until 02/07/2023 [facility] Work Phone: Comment on above: 1 Occurrences starting 01/08/2022 until 02/07/2023 Serum protein electrophoresis [facility] SURGICAL PATHOLOGY SURGICAL PATH OLOGY Lab Routine Vulvar itching Ordered: 01/08/2022 [facility] Work Phone: Comment on above: Ordered: 01/08/2022 Total globulins measurement [facility] Immunizations Immunization Date Immunization Notes Care Provider Leslie ray 11-26-2022 influenza virus vacc ine, unspecified formulation Linda Restrepo NATIONAL O[employer]LINT ANALYST.CNM Work Phone: [facility] 11-13-2021 influenza virus vacc ine, unspecified formulation Cassie Shetty NATIONAL OPELINT ANALYST.PRINTING ESTIMATOR Work Phone: [facility] 07-14-2021 Covid (Moderna) Dr. Osbaldo Donnelly Work Phone: [facility] 12-15-2020 Covid (Moderna) Dr. Osbaldo Donnelly Work Phone: [facility] 12-11-2020 Covid (Moderna) Dr. Osbaldo Donnelly Work Phone: [facility] 11-14-2020 influenza, injectabl e, quadrivalent, preservative free [facility] 11-14-2020 influenza, seasonal, injectable Dr. Ervin Donnelly Work Phone: [facility] 05-14-2020 Covid (Moderna) Dr. Osbaldo Donnelly Work Phone: [facility] 05-13-2020 Covid (Moderna) Dr. Osbaldo Donnelly Work Phone: [facility] 04-16-2020 Covid (Moderna) Dr. Osbaldo Donnelly Work Phone: [facility] 11-21-[address] Ervin Donnelly Work Phone: [facility] 10-20-[address] Ervin Donnelly Work Phone: [facility] 10-19-2019 Fluad Quad (65yr up)(PF) 60 mcg (15 mcg x 4)/0.5mL IM syringe (flu vac Dr. Ervin Donnelly Work Phone: [facility] Work Phone: 10-19-2019 Dr. Ervin Donnelly Work Phone: [facility] Work Phone: 09-19-2019 pneumococcal polysaccharide vaccine, [address] Ervin Donnelly Work Phone: [facility] 09-19-2019 tetanus toxoid, redu sierra diphtheria toxoid, and acellular pertussis vaccine, adsorbed Dr. Ervin Donnelly Work Phone: [facility] 09-19-[address] Ervin Donnelly Work Phone: [facility] 02-14-[address] Ervin Donnelly Work Phone: [facility] 12-01-2018 influenza, injectabl e, quadrivalent, preservative free [facility] 12-01-2018 influenza, seasonal, injectable Dr. Ervin Donnelly Work Phone: [facility] 10-26-[address] Ervin Donnelly Work Phone: [facility] 10-21-2017 influenza, injectabl e, quadrivalent, preservative free [facility] 10-21-2017 influenza, seasonal, injectable Dr. Ervin Donnelly Work Phone: [facility] 12-14-2016 influenza virus vacc ine, whole virus Merrill Chaves MD Work Phone: [facility] Work Phone: 12-14-2016 influenza, injectabl e, quadrivalent, preservative free [facility] 12-14-2016 influenza, seasonal, injectable Dr. Ervin Donnelly Work Phone: [facility] 11-19-2016 influenza, injectabl e, quadrivalent, preservative free [facility] 11-19-2016 influenza, seasonal, injectable Dr. Ervin Donnelly Work Phone: [facility] 01-14-2016 pneumococcal polysaccharide vaccine, [address] Ervin Donnelly Work Phone: [facility] Work Phone: 01-14-2016 zoster vaccine, live Dr. Stephanie Donnelly Work Phone: [facility] Work Phone: 11-18-2015 influenza, injectabl e, quadrivalent, preservative free [facility] 11-18-2015 influenza, seasonal, injectable Dr. Ervin Donnelly Work Phone: [facility] 12-31-2014 pneumococcal conjuga te vaccine, [address] Ervin Donnelly Work Phone: [facility] 11-11-2014 influenza, injectabl e, quadrivalent, preservative free [facility] 11-11-2014 influenza, seasonal, injectable Dr. Ervin Donnelly Work Phone: [facility] 11-14-[address] Ervin Donnelly Work Phone: [facility] 02-14-2013 influenza, injectabl e, quadrivalent, preservative free [facility] 02-14-2013 influenza, seasonal, injectable Dr. Evrin Donnelly Work Phone: [facility] 02-14-2013 zoster vaccine, live Dr. Stephanie Donnelly Work Phone: [facility] 11-10-[address] Ervin Donnelly Work Phone: [facility] 11-10-2012 influenza, injectabl e, quadrivalent, preservative free [facility] 11-10-2012 influenza, seasonal, injectable Dr. Ervin Donnelly Work Phone: [facility] 12-05-[address] Stephanie Donnelly Work Phone: [facility] Work Phone: 12-05-2009 pneumococcal vaccine , unspecified formulation Dr. Ervin Donnelly Work Phone: [facility] 12-09-2008 novel influenza-H1N1 -09, preservative-free, injectable Dr. Ervin Donnelly Work Phone: [facility] Payers Date Payer Category Payer Self-pay [id number] 2018 Medicare MEDICARE MEDICAR E A AND B [id number] 2018-Present [phone] [address] [address] [place] [address] Medicare [id number] 2018 Medicare [id number]. [id number] 2018 Private Health Insurance MMO MED ICARE SUPPLEMENT [id number] 2018 Unknown MMO MMO MEDICARE SUPPLEMENT [id number] 2018-Present [phone] [address] [place] [address] Indemnity [id number]. [id number] 2018 Unknown MMO MMO MEDICARE SUPPLEMENT [id number] 2018-Present [phone] [address] [place] [address] Indemnity [id number]. [id number] 2018 Medicare [id number] 2009 Unknown [id number] Medicaid [id number] Unknown [id number] Unknown [id number] 2.16.840.1.954602.3.579.2. 462 Unknown [id number] 2.16.840.1.906142.3.579.2. 462 Unknown [id number] 2.16.840.1.431416.3.579.2. 462 Unknown [id number] 2.16.840.1.982153.3.579.2. 462 Unknown [id number] 2.16.840.1.297495.3.579.2. 462 Unknown [id number] 2.16.840.1.921360.3.579.2. 462 Unknown [id number] 2.16.840.1.578123.3.579.2. 462 Unknown [id number] 2.16.840.1.935620.3.579.2. 462 Unknown [id number] 2.16.840.1.416575.3.579.2. 462 Unknown [id number] 2.16.840.1.970164.3.579.2. 462 Unknown [id number] 2.16.840.1.982393.3.579.2. 462 Unknown [id number] 2.16.840.1.091381.3.579.2. 462 Unknown [id number] 2.16.840.1.698922.3.579.2. 462 Unknown [id number] 2.16.840.1.141471.3.579.2. 462 Unknown [id number] 2.16.840.1.173793.3.579.2. 462 Unknown [id number] 2.16.840.1.672126.3.579.2. 462 Unknown [id number] 2.16.840.1.755686.3.579.2. 462 Unknown [id number] 2.16.840.1.899993.3.579.2. 462 Unknown [id number] 2.16.840.1.986164.3.579.2. 462 Unknown [id number] 2.16.840.1.219559.3.579.2. 462 Unknown [id number] 2.16.840.1.627793.3.579.2. 462 Unknown [id number] 2.16.840.1.108291.3.579.2. 462 Unknown [id number] 2.840.1.072367.3.579.2. 462 Unknown [id number] 2..840.1.521901.3.579.2. 462 Unknown [id number] 2.16.840.1.321215.3.579.2. 462 Unknown [id number] 2.16.840.1.634241.3.579.2. 462 Unknown [id number] 2.16.840.1.055504.3.579.2. 462 Unknown [id number] 2.16.840.1.554373.3.579.2. 462 Unknown [id number] 2.16.840.1.077935.3.579.2. 462 Unknown [id number] 2.16.840.1.608550.3.579.2. 462 Unknown [id number] 2.16.840.1.769158.3.579.2. 462 Unknown [id number] 2.16.840.1.314508.3.579.2. 462 Unknown [id number] 2.16.840.1.330912.3.579.2. 462 Unknown [id number] 2.16.840.1.336785.3.579.2. 462 Unknown [id number] 2.16.840.1.088793.3.579.2. 462 Unknown [id number] 2.16.840.1.180265.3.579.2. 462 Unknown [id number] 2.16.840.1.582448.3.579.2. 462 Unknown [id number] 2.16.840.1.959100.3.579.2. 462 Unknown [id number] 2.16840.1.097562.3.579.2. 462 Unknown [id number] 2.16.840.1.077232.3.579.2. 462 Unknown [id number] 2.16840.1.355948.3.579.2. 462 Unknown [id number] 2.16840.1.006471.3.579.2. 462 Unknown [id number] 2.16840.1.401217.3.579.2. 462 Unknown [id number] 2.16840.1.446417.3.579.2. 462 Unknown [id number] 2.16.840.1.087835.3.579.2. 462 Unknown [id number] 2.16840.1.384527.3.579.2. 462 Unknown [id number] 2.16.840.1.913338.3.579.2. 462 Unknown [id number] 2.16.840.1.700428.3.579.2. 462 Unknown [id number] 2.16.840.1.740262.3.579.2. 462 Unknown [id number] 2.16.840.1.390020.3.579.2. 462 Unknown [id number] 2.16.840.1.866814.3.579.2. 462 Unknown [id number] 2.16.840.1.500610.3.579.2. 462 Unknown [id number] 2.16.840.1.216350.3.579.2. 462 Unknown [id number] 2.16.840.1.588397.3.579.2. 462 Unknown [id number] 2.16.840.1.379531.3.579.2. 462 Unknown [id number] 2.16.840.1.847484.3.579.2. 462 Unknown [id number] 2.16.840.1.785681.3.579.2. 462 Unknown [id number] 2.16.840.1.173670.3.579.2. 462 Unknown [id number] 2.16.840.1.312960.3.579.2. 462 Unknown [id number] 2.16.840.1.233686.3.579.2. 462 Unknown [id number] 2.16.840.1.147292.3.579.2. 462 Unknown [id number] 2.16.840.1.998475.3.579.2. 462 Unknown [id number] 2.16.840.1.613750.3.579.2. 462 Unknown [id number] 2.16.840.1.421051.3.579.2. 462 Social History Date Type Detail Facility [facility] Work Phone: Start: 05-12-2021 End: 03-10-2023 Tobacco smoking status NHIS Unknown if ever smoked [facility] Start: 06-20-2020 Rare [facility] Start: 06-20-2020 None [facility] Start: 06-20-2020 Homeless [facility] Start: 06-20-2020 Non-smoker [facility] Start: 1955 Sex Assigned At Female W [facility] Start: 12-23-2021 End: 09-06-2024 Tobacco smoking status NHIS Ex-smoker [facility] Start: 10-29-1975 End: 10-29-1995 History of tobacco use Current smoker [facility] Start: 10-29-1975 End: 10-29-1995 History of tobacco use Cigarette Smoker [facility] Start: 09-12-2021 End: 05-01-2024 Alcohol intake Current non-drinker of alcohol (finding) [facility] Start: 1955 Sex Assigned At Not on file C [facility] Start: 12-23-2021 End: 09-16-2022 Cigarettes smoked current (pack per day) - Reported 1 [facility] Start: 12-23-2021 End: 10-03-2023 Tobacco use and exposure Smokeless tobacco non-user [facility] Start: 09-16-2022 End: 05-01-2024 Tobacco use panel [facility] Work Phone: National Score (1-10 0), lower number is lower risk 67 [facility] Start: 05-30-2024 [facility] (finding[facility] Procedure Code Equipment Code Equipment Origin al Text Equipment Identifier Dates Minimally invasive total replacement of hip joint by anterior approach ([id number]) ()[id number] FDA Start: 06-24-2021 Minimally invasive total replacement of hip joint by anterior approach ([id number]) ()[id number] FDA Start: 06-24-2021 Minimally invasive total replacement of hip joint by anterior approach ([id number]) ()[id number] FDA Start: 06-24-2021 Minimally invasive total replacement of hip joint by anterior approach ([id number]) ()[id number] 01 FDA Start: 06-24-2021 Minimally invasive total replacement of hip joint by anterior approach ([id number]) ()[id number] FDA Start: 06-24-2021 Goals Date Patient Goal Desired Activity /State Functional Status Date Assessment Result Facility 07-15-2021 Functional status Independent [facility] Work Phone: 07-14-2021 Functional status Ambulates;Up ad starla [facility] Work Phone: 07-07-2021 Functional status Ambulates [facility] Work Phone: 07-06-2021 Functional status Ambulates [facility] Work Phone: 07-05-2021 Functional status Ambulates [facility] Work Phone: 07-03-2021 Functional status With Assist of 2 [facility] Work Phone: 06-26-2021 Functional status Ambulates [facility] Work Phone: 12-30-2016 Are you deaf, or do you have serious difficulty hearing No 12/30/2016 6:40 PM Poonam Beckford RN No [facility] 12-30-2016 Are you blind, or do you have serious difficulty seeing, even when wearing glasses No 12/30/2016 6:40 PM Poonam Beckford, MARIO No [facility] 12-30-2016 Do you have serious difficulty walking or climbing stairs Yes 12/30/2016 6:40 PM Poonam Beckford, MARIO Yes [facility] 12-30-2016 Do you have difficul ty dressing or bathing Yes 12/30/2016 6:40 PM Poonam Beckford, MARIO Yes [facility] 12-30-2016 Because of a physica l, mental, or emotional condition, do you have difficulty doing errands alone such as visiting a physician's office or shopping Yes 12/30/2016 6:40 PM Poonam Beckford, MARIO Yes [facility] Mental Status Date Assessment Result Facility 09-06-2024 Cognitive function Awake;Alert;A ppropriate;Fol lows Commands [facility] Work Phone: 09-05-2024 Cognitive function Awake;Alert;A ppropriate;Fol lows Commands [facility] Work Phone: 09-12-2021 Cognitive function Level Of Cons ciousness Awake;Alert;Appropriate;Fol lows Commands [facility] Work Phone: 07-15-2021 Cognitive function Voice/Name [facility] Work Phone: 07-15-2021 Cognitive function Appropriate;[facility] Work Phone: 07-13-2021 Cognitive function Voice/Name [facility] Work Phone: 07-07-2021 Cognitive function Voice/Name;Touch/Shaki ng [facility] Work Phone: 07-06-2021 Cognitive function Voice/Name [facility] Work Phone: 07-04-2021 Cognitive function Voice/Name [facility] Work Phone: 07-03-2021 Cognitive function Voice/Name [facility] Work Phone: 06-29-2021 Cognitive function Appropriate;[facility] Work Phone: 06-26-2021 Cognitive function Voice/Name [facility] Work Phone: 05-12-2021 Cognitive function Awake;Alert;A ppropriate;Fol lows Commands [facility] Work Phone: 12-30-2016 Because of a physica l, mental, or emotional condition, do you have serious difficulty concentrating, remembering, or making decisions No 12/30/2016 6:40 PM Poonam Beckford, RN No [facility] Clinical Notes 08-03-2012 to 09-06-2024 Note Date & Type Note Facility 09-06-2024 Radiology Diagnostic study note [facility] 09-06-2024 Discharge summary Note Date/Time September 06, 2024 5:08pm [facility] Medical Records Department [address] [place] [address] Emergency Department Summary 09/06/24 MR#: [id number] Acct: [id number] Name: LINCOLNLAURA MAE Rep #:[id number] : 1955 69 From: [...] feels weak. Came in for further evaluation. [facility] Medical History Pseudomonas pneumonia Asthma exacerbation in [...] with the patient as well as her client service coordinator, Dr. Rodrigues, who are bothcomfortable with her [...] 88.9 H Lymph % (Auto) 5.0 L [place] % (Auto) 4.6 Eos % (Auto) 0.9 [...] Clarity Clear Urine pH 6.0 Ur Specific [place] 1.015 Urine Protein 30 H Urine Glucose [...] abdomen/pelvis: No acute abdominopelvic finding. Reading Location: [facility] Rhythm Strip Rhythm Strip: Sinus Tach Rate: 112 Ectopy: None EKG Initial EKG: Attestation: I personally reviewed and interpreted this EKG as follows: Interpretation: Sinus Tachycardia Comments: Sinus tachycardia at a rate of 112 bpm PACs Left anterior fascicular block Normal axis Normal intervals Normal ST segments Management Discussion w/another healthcare provider: [employer] Specialist Manager (Pulmonology ) Discharge Plan Triage Chief Complaint: [...] this might require increased frequency. Print Language: Uzbek Disposition Disposition: Home, Self Care What to do if you have Problems For any increased pain, shortness of breath, bleeding, nausea or vomiting, chestpain, or any unexpected problems, contact your Primary Care Provider. Call [facility] ([phone]) or report to the closest Emergency Room. Call 911 if necessary. 09/06/24 6522 <Electronically signed by Genevieve Bailey DO> Amyer Signature (if applicable): CC: Dr. Moreno Donnelly MD ~ Signed [facility] Work Phone: [phone] Radiology Diagnostic study [facility]05-23-2025 Radiology Diagnostic study [facility]04-02-2025 Evaluation note* Diagnosis Onset Date Resolution Status Admit Date Essential hypertension chronic Ap ril 2024 2:39pm Heart failure with preserved ejection fraction chronic May 16 2:39pm Hyperlipidemia chronic May 16, 2024 2:39pm PAF (paroxysmal atrial fibrillation) chronic May 16, 2024 2:39pm [facility] Work Phone: [phone] Evaluation note* Diagnosis Onset Date Resolution Status Admit Date Leg length discrepancy acute Ma h 2024 9:40am Lumbar scoliosis acute May 032024 9:40am Neuropathy acute May 03 9:40am Osteopenia determined by x-ray acute May 03, 2024 9:40am Spondylolisthesis, lumbar region acu te May 03, 2024 9:40am Essential hypertension chronic Ap ril 2024 2:39pm Heart failure with preserved ejection fraction chronic May 16 2:39pm Hyperlipidemia chronic May 16, 2024 2:39pm PAF (paroxysmal atrial fibrillation) chronic May 16, 2024 2:39pm [facility] Work Phone: 1(273) 496-660003-18-2025 NoteHNO ID: [id number] Author: LINDA RESTREPO APRN.CNM Service: ? Author Type: Guest Service Host Type: Progress Notes Filed: 05/07/2024 08:58 Note [...] Living1 SAB0 IAB0 Ectopic0 Multiple0 Live Births0 Motorcycle Service Technician History LMP: Hysterectomy Age at Menarche: Age at First : Age at Menopause: Motorcycle Service Technician History Comments: Sexual Activity: Not Currently; Male; [...] (FLONASE) 50 mcg/actuation nasal spray Use 1 [place] in each nostril twice daily. acetaminophen 650 [...] mouth once daily. ( (more content not included)...[facility]03-18-2025 History of Present illness Narrative* Linda Restrepo APRN.JAYDENM - 05/01/2024 12:52 PM EDT Laura Stark [...] Living1 SAB0 IAB0 Ectopic0 Multiple0 Live Births0 Motorcycle Service Technician History LMP: Hysterectomy Age at Menarche: Age at First : Age at Menopause: Motorcycle Service Technician History Comments: Sexual Activity: Not Currently; Male; hysterectomy Contraception: Surgical PAST MEDICAL HISTORY Diagnosis Date Abnormal mammogram, unspecified 12/06/2007 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 DVT (deep venous thrombosis) ([facility]) 1995 Rt lower leg Embolism and thrombosis of unspecified site 10/28/2005 PE (pulmonary embolism) Recurrent ventral incisional hernia 08/03/2012 Sepsis ([facility]) Unspecified asthma(493.90) Unspecified essential hypertension PAST SURGICAL [...] (FLONASE) 50 mcg/actuation nasal spray Use 1 [place] in each nostril twice daily. acetaminophen 650 [...] discussed with the Patient or Patient's Authorized Restuarant Crew Worker. As applicable, any other physician, advance practice provider, medical student, or other health professional student that will be observing or involved in the sensitive examination for educational or training purposes was discussed with the Patient or Authorized Restuarant Crew Worker. The Patient or Authorized Restuarant Crew Worker has agreed to proceed with the sensitive examination. (Sensitive examination includes inspection and/or palpation of the breasts, pelvis, prostate and anorectal regions). EXAM: BP 120/68 Wt 189 lb (85.7kg) GENERAL: pleasant, female in no apparent distress HEENT: Normocephalic and atraumatic NECK: Supple and full range of motion DERMATOLOGY: Normal and without lesions PELVIC: external genitalia normal, normal Bartholin's glands, urethra, [place]'s glands, no cervical lesions, good vaginal support, [...] plan. Linda Restrepo APRN.CNM documented in this encounterCleveland [id number] NoteHNO ID: [id number] Author: LINDA RESTREPO APRN.CNM Service: ? Author Type: Guest Service Host Type: Progress Notes Filed: 10/05/2023 10:56 Note [...] L1 SAB0 IAB0 Ectopic0 Multiple0 Live Births0 Motorcycle Service Technician History LMP: Hysterectomy Age at Menarche: Age at First : Age at Menopause: Motorcycle Service Technician History Comments: Sexual Activity: Not Currently; Male; hysterectomy Contraception: Surgical PAST MEDICAL HISTORY 12/06/2007: Abnormal mammogram, unspecified 10/14/2005: BILIARY DYSKINESIA 1995: DVT (deep venous thrombosis) ([facility]) Comment: Rt lower leg 10/28/2005: Embolism and [...] 4 hours as nee (more content not included)...[facility]08-19-2024 History of Present illness Narrative* Linda Restrepo APRN.[facility] - 10/03/2023 1:21 PM EDT Laura Stark is a 68 year old [...] L1 SAB0 IAB0 Ectopic0 Multiple0 Live Births0 Motorcycle Service Technician History LMP: Hysterectomy Age at Menarche: Age at First : Age at Menopause: Motorcycle Service Technician History Comments: Sexual Activity: Not Currently; Male; hysterectomy Contraception: Surgical PAST MEDICAL HISTORY 12/06/2007: Abnormal mammogram, unspecified 10/14/2005: BILIARY DYSKINESIA 1996: DVT (deep venous thrombosis) ([facility]) Comment: Rt lower leg 10/28/2005: Embolism and [...] 01-18-13: LAPS RPR RECURRENT INCAL HRNA NCRC8/STRANGULATED 2003: PAST SURGICAL HISTORY OF Comment: right ankle surgery-fusion 2009: PAST SURGICAL HISTORY OF Comment: right shoulder [...] (FLONASE) 50 mcg/actuation nasal spray Use 1 [place] in each nostril twice daily. acetaminophen 650 [...] external genitalia normal, normal Bartholin's glands, urethra, [place]'s glands, on left labia small blood blister, healing NEURO: alert and oriented x3,exam grossly non-focal EXTREMITIES: normal ASSESSMENT AND PLAN: 1. Blood blister - ICD9: 919.2, ICD10: T14.8XXA -Healing, no intervention needed at this time. -Return for annual exam Linda Restrepo APRN.CNM [facility] Progress note Author Nicky Cavanaugh [facility] June 14, 2023 10:12am Note Date/Time June 14, 2023 10: 12am [facility] [address] [place] [address] Progress Note - Wound Care 06/14/23 1012 MR#: [id number] Acct: [id number] Name: LAURA STARK Rep #:[id number] : [...] service Follow-up Visit Follow-up Visit Follow-up Visit (Physician/PRINTING ESTIMATOR (Physician/PRINTING ESTIMATOR (Physician/PRINTING ESTIMATOR ) ) ) Arrival Mode Ambulatory Ambulatory, [...] Type of service Follow-up Visit Follow-up Visit (Physician/PRINTING ESTIMATOR (Physician/PRINTING ESTIMATOR ) ) Arrival Mode Ambulatory, Ambulatory, Walker [...] Amt Medium (34-66%) Medium (34-66%) -Granulation Quality [place] -Slough/Fibrin Yes Yes -Necrosis Amt Medium (34-66%) [...] Medium (34-66%) Medium (34-66%) -Granulation Quality Red [place],Red -Slough/Fibrin Yes -Necrosis Amt Medium (34-66%) Medium [...] 2 #3 RT MED ANKLE -Time 11: 09:38 11:21 -Correct Patient Yes Yes Yes [...] -Expiration Date 12/16/27 12/16/27 -Product Lot Number [id number] -Percent Used 100 100 -Lot number of Saline Used [id number] -Bleeding Controlled with Pressure Pressure Pressure -Treatment [...] -Expiration Date 12/16/27 12/16/27 -Product Lot Number [id number] -Percent Used 100 100 -Lot number of Saline Used [id number] -Bleeding Controlled with Pressure Pressure -Treatment Response [...] Cosigner Signature (if applicable): CC: ~ Signed [facility] Work Phone: 1(934) 475-822604-23-2024 Progress note Author Nikcy Cavanaugh [facility] June 07, 2023 11:16am Note Date/Time June 07, 2023 11: 16am [facility] [address] [place] [id number] Progress Note - Wound Care 06/07/23 1115 MR#: [id number] Acct: [id number] Name: LAURA STARK Rep #:[id number] : [...] KW 05/17/23 05/24/23 05/31/23 10:33 08:40 11:02 WC - Today's Visit Information Type of service Follow-up Visit Follow-up Visit Follow-up Visit (Physician/PRINTING ESTIMATOR (Physician/PRINTING ESTIMATOR (Physician/PRINTING ESTIMATOR ) ) ) Arrival Mode Ambulatory Ambulatory, [...] Pain Free? Yes Yes Yes 06/07/23 10:46 WC - Today's Visit Information Type of service Follow-up Visit (Physician/PRINTING ESTIMATOR ) Arrival Mode Ambulatory, Walker Transfer Assistance [...] Amt Medium (34-66%) Medium (34-66%) -Granulation Quality [place] -Slough/Fibrin Yes Yes -Necrosis Amt Medium (34-66%) [...] Recorded Date Recorded By Document 05/17/23 11:05 [employer] Laptop 05/17/23 11:12 [employer] Document 05/24/23 09:37 [employer]aptop 05/24/23 09:39 Document 05/31/23 11:21 [employer] Laptop 05/31/23 11:27 Document 06/07/23 11:11 [employer] Laptop 06/07/23 11:13 [employer] 05/17/23 05/24/23 05/31/23 11:05 09:37 11:21 Wound [...] -Expiration Date 12/16/27 12/16/27 -Product Lot Number [id number] -Percent Used 100 100 -Lot number of Saline Used [id number] -Bleeding Controlled with Pressure Pressure Pressure -Treatment [...] Disc -Expiration Date 12/16/27 -Product Lot Number [id number] -Percent Used 100 -Lot number of Saline Used [id number] -Bleeding Controlled with Pressure -Treatment Response Procedure Tolerated Well -Offloading No -Debridement - Subq, 1st 20sq cm No -Apply Skin Sub - 1st 25 sq cm - Legs 1 -Epifix 18mm Disc 3 Pain Scale: 0-10 Numeric Is Patient Pain Free? Yes - Nurse 3 - General Ulcer D/C [...] Cosigner Signature (if applicable): CC: ~ Signed [facility] Work Phone: 1(922) 302-550104-16-2024 Progress note Author Nicky Cavanaugh [facility] May 31, 2023 11:30am Note Date/Time May 31, 2023 11: 30am [facility] [address] [place] [id number] Progress Note - Wound Care 05/31/23 1129 MR#: [id number] Acct: [id number] Name: LAURA STARK Rep #:[id number] : [...] KW 05/17/23 05/24/23 05/31/23 10:33 08:40 11:02 WC - Today's Visit Information Type of service Follow-up Visit Follow-up Visit Follow-up Visit (Physician/PRINTING ESTIMATOR (Physician/PRINTING ESTIMATOR (Physician/PRINTING ESTIMATOR ) ) ) Arrival Mode Ambulatory Ambulatory, [...] Is Patient Pain Free? Yes Yes Yes - Nurse 1 - General Ulcer [...] Amt Medium (34-66%) Medium (34-66%) -Granulation Quality [place] -Slough/Fibrin Yes Yes -Necrosis Amt Medium (34-66%) [...] -Expiration Date 12/16/27 12/16/27 -Product Lot Number [id number] -Percent Used 100 100 -Lot number of Saline Used [id number] -Bleeding Controlled with Pressure Pressure Pressure -Treatment Response Procedure Procedure Procedure Tolerated Well Tolerated Well Tolerated Well -Offloading No No No -Debridement - Subq, 1st 20sq cm Yes No No -Apply Skin Sub - 1st 25 sq cm - Legs 1 1 -Epifix 18mm Disc 3 3 Pain Scale: 0-10 Numeric Is Patient Pain Free? Yes Yes Yes - Nurse 3 - General Ulcer D/C [...] Cosigner Signature (if applicable): CC: ~ Signed [facility] Work Phone: 1(988) 139-546704-09-2024 Progress note Author Nicky Cavanaugh [facility] May 24, 2023 10:31am Note Date/Time May 24, 2023 10:3 0am [facility] [address] [place] [id number] Progress Note - Wound Care 05/24/23 1029 MR#: [id number] Acct: [id number] Name: LAURA STARK Rep #:[id number] : 1955 68 From: Nicky Cavanaugh DPM PCP: Dr. Moreno Donnelly MD Status :REG RCR Location: ADDENDUM by DPAmy Cavanaugh on 05/24/23 at 1030 Addendum Today [...] Start: 05/17/23 10:33 Freq: Status: Active Protocol: FABRIZIO.LOWEXT Activity Type Activity Date Activity User E-sign Co-sign Detail Recorded Client Recorded Date Recorded By Document 05/17/23 10:33 RB Desktop 05/17/23 10:46 RB Document 05/24/23 08:40 KW Desktop 05/24/23 08:45 KW 05/17/23 05/24/23 10:33 08:40 - Today's Visit Information Type of service Follow-up Visit Follow-up Visit (Physician/PRINTING ESTIMATOR (Physician/PRINTING ESTIMATOR ) ) Arrival Mode Ambulatory Ambulatory, Walker [...] Numeric Is Patient Pain Free? Yes Yes - Nurse 1 - General Ulcer [...] Attached -Granulation Amt Medium (34-66%) -Granulation Quality [place] -Slough/Fibrin Yes -Necrosis Amt Medium (34-66%) Large (67-100%) -Necrotic Tissue Type Adherent Slough Adherent Slough -Structure Exposed N/A -Texture (Jagruti-wound Skin Appearance) Assessed Assessed -Moisture (Jarguti-wound Skin Appearance) Maceration Assessed -Color (Jagruti-wound Skin [...] 11:12 Document 05/24/23 09:37 Laptop 05/24/23 09:39 05/17/23 05/24/23 11:05 09:37 Wound Center Nurse [...] Disc -Expiration Date 12/16/27 -Product Lot Number [id number] -Percent Used 100 -Lot number of Saline Used [id number] -Bleeding Controlled with Pressure Pressure -Treatment Response [...] Cosigner Signature (if applicable): CC: ~ Signed [facility] Work Phone: 1(105) 682-929904-02-2024 Progress note Author Nicky Cavanaugh [facility] May 17, 2023 11:18am Note Date/Time May 17, 2023 11:1 8am [facility] [address] [place] [address] Progress Note - Wound Care 05/17/23 1115 MR#: [id number] Acct: [id number] Name: LINCOLNLAURA RHODSE Rep #:[id number] : 1955 68 From: [...] Start: 05/17/23 10:33 Freq: Status: Active Protocol: FABRIZIO.LOWEXT Activity Type Activity Date Activity User E-sign Co-sign Detail Recorded Client Recorded Date Recorded By Document 05/17/23 10:33 RB Desktop 05/17/23 10:46 RB 05/17/23 10:33 - Today's Visit Information Type of service Follow-up Visit (Physician/PRINTING ESTIMATOR ) Arrival Mode Ambulatory Transfer Assistance None [...] Attached -Granulation Amt Medium (34-66%) -Granulation Quality [place] -Slough/Fibrin Yes -Necrosis Amt Medium (34-66%) -Necrotic [...] Cosigner Signature (if applicable): CC: ~ Signed [facility] Work Phone: 1(135) 269-473503-26-2024 History and physical note Author Nicky Cavanaugh [facility] May 10, 2023 10:37am Note Date/Time May 10, 2023 10: 38am [facility] [address] [place] [id number] H&P Exam - Wound Care 05/10/23 1032 MR#: [id number] Acct: [id number] Name: LAURA STARK Rep #:[id number] : [...] right leg. Patient has no other complaints. [facility] Medical History Abnormal chest CT Acute [...] Start: 05/10/23 09:49 Freq: Status: Active Protocol: MIKE Activity Type Activity Date Activity User E-sign Co-sign Detail Recorded Client Recorded Date Recorded By Document 05/10/23 10:07 KW Desktop 05/10/23 10:18 KW 05/10/23 10:07 WC - Today's Visit Information Type of [...] Cosigner Signature (if applicable): CC: ~ Signed [facility] Work Phone: 1(807) 429-787610-24-2023 History of Present illness Narrative* Nunu Oneal [...] L1 SAB0 IAB0 Ectopic0 Multiple0 Live Births0 Motorcycle Service Technician History LMP: Hysterectomy Age at Menarche: Age at First : Age at Menopause: Motorcycle Service Technician History Comments: Sexual Activity: Not Currently; Male; [...] (FLONASE) 50 mcg/actuation nasal spray Use 1 [place] in each nostril twice daily. acetaminophen 650 [...] PCP Nunu Oneal MD [facility] [place] Miscellaneous Notes* Telephone Encounter - Candelaria Toro LPN - 11/01/2022 10:41 AM EDT Pt notified and voiced understanding with no further questions. Candelaria Toro LPN * Telephone Encounter - Cassie Shetty APRN.CNP - 11/01/2022 7:14 AM EDT Please let the patient know that her vaginal cultures are negative for any infection -to continue use with the clobetasol cream. Cassie Shetty APRN.CNP documented in this encounter[facility] [place]-15-[facility] History of Present illness Narrative* Cassie Shetty [...] external genitalia normal, normal Bartholin's glands, urethra, [place]'s glands, no vulvar lesions, physiologic discharge present, [...] Level: 3 - Low documented in this encounterSelect [facility] [place]-03-2023 NoteHNO ID: [id number] Author: Keyon Meade DPM Service: ? 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 acetaminophen 650 [...] sensation intact at all pedal sites via [place] Thiago 5.07 monofilament bilateral. Proprioception intact at [...] patellar tendon weight bearing brace (PTWB) - [employer]s - Continue use of CAM boot until [...] Keyon Meade DPM, FACFAS documented in this encounterSelect [facility] [place]-03-2023 Instructions* Patient Instructions* Clementina Hare DPM - 09/16/2022 11:12 AM EDT Recommend patellar tendon weight-bearing brace (PTWB) -Sisasa Ava) Make appointment by telephone. Handout dispensed. Wear walking boot in mean time until brace is completed Follow up when brace is made. documented in this encounterSelect [facility] [place]12-14-2022 History of Present illness Narrative* Lima Garcia [...] 27, 2022 11:08 AM documented in this encounterSelect [facility] [place]12-08-2022 Miscellaneous Notes* Telephone Encounter - Candelaria Toro LPN - 01/21/2022 9:47 AM EST Spoke with pt and given below suggestions and pt stated that she was feeling better and she will just keep her follow up with Linda. Candelaria Toro LPN * Telephone Encounter - Abril [...] then to have it checked unless provider hospice nurse practitioner thinks otherwise. Rody Chávez RN * Telephone [...] advise. Rody Chávez RN documented in this encounterSelect [facility] [place]11-29-2022 History of Present illness Narrative* Linda Restrepo APRN.HONEY - 01/12/2022 11:09 AM EST Laura Stark is a 67 year old female who presents for problem visit after biopsy. HPI: Here today with complaint after vulvar biopsy completed on 01/08/22. Complaint of bleeding at biopsy site and pain. Feeling better today and no bleeding. Kenalog cream helped with itching and much improved. OB History T0 L1 SAB0 IAB0 Ectopic0 Multiple0 Live Births0 Motorcycle Service Technician History LMP: Hysterectomy Age at Menarche: Age at First : Age at Menopause: Motorcycle Service Technician History Comments: Sexual Activity: Not Asked; No [...] NON-TUNNELED CENTRAL VENOUS CATH AGE 4 YR/> 2-8-13 LAPS RPR RECURRENT INCAL HRNA NCRC8/STRANGULATED 01-18-13 [...] (FLONASE) 50 mcg/actuation nasal spray Use 1 [place] in each nostril twice daily. acetaminophen 650 [...] of motion PELVIC: normal Bartholin's glands, urethra, [place]'s glands,normal appearing perineal body and perianal region. [...] days Linda Restrepo APRN.CNM documented in this encounterSelect [facility] [place]11-28-2022 Miscellaneous Notes* Telephone Encounter - Rody Chávez [...] normal. . Please advise. documented in this encounterSelect [facility] [place]11-25-2022 History of Present illness Narrative* Linda Restrepo APRN.JAYDENM - 01/08/2022 8:10 AM EST Automatic Typewriter Inspector offered: Patient declines. Laura Stark is a [...] Care Visit completed when applicable. Earnestine Hollins ENGINEERING PSYCHOLOGIST PROCEDURE NOTE: GROSS LESIONS: No BIOPSY: Area [...] Temovate. Linda Restrepo APRN.CNM documented in this encounterSelect [facility]11-15-2022 Miscellaneous Notes* Telephone Encounter - Thierno Lara MD - 12/29/2021 12:01 PM EST No other recommendations at this time Thierno Lara MD * Telephone Encounter - Rody Chávez RN - 12/29/2021 11:33 AM EST Patient notified. States her symptoms have improved some since stopping clobetasol. Thinks it was areaction to that medication. Now feels almost the same as when she saw SRAVAN last week. Wants to proceed with vulvar biopsy now for when SRAVAN returns. She is scheduled for 01/08/22 with . Will forward to so she is aware. [...] 12/29/2021 8:29 AM EST Not addressed by hospice nurse practitioner provider yesterday. Please review and advise. Thank [...] absence. Rody Chávez RN documented in this encounterSelect [facility] [place]11-10-2022 Miscellaneous Notes* Telephone Encounter - Rody Chávez [...] you, Linda Restrepo APRN.CNM documented in this encounterSelect [facility]11-09-2022 Miscellaneous Notes* Addendum Note - Linda Restrepo APRN.CNM - 12/23/2021 4:16 PM ESTAddended by: LINDA RESTREPO on: 12/23/2021 04:16 PM Modules accepted: Orders documented in this encounterSelect [facility] [place]11-09-2022 Instructions* Patient Instructions* Linda Restrepo APRN.CNM - 12/23/2021 11:05 AM EST Topical steroid twice a day for 4 weeks, then daily for 2 weeks, then every other day for 2 weeks. Then can use weekly if need or hydrocortisone. documented in this encounterSelect [facility]11-09-2022 History of Present illness Narrative* Linda Restrepo APRN.CNM - 12/23/2021 10:45 AM EST Automatic Typewriter Inspector offered: Patient declines. 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 acetaminophen (TYLENOL [...] external genitalia normal, normal Bartholin's glands, urethra, [place]'s glands, physiologic discharge present, normal appearing perineal [...] hygiene. 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 acetaminophen (TYLENOL [...] further evaluation. She will drive herself to [facility]. Notified by ER Passport. 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 12/23/2016 documented as of this encounter (statuses as of 09/12/2021) [facility] History of Past illness Narrative* Problem Noted Date Resolved Date Recurrent ventral incisional hernia 08/03/2012 12/23/2016 PE (pulmonary embolism) 04/28/2012 12/24/19 17 Wound infection 02/16/2012 12/23/2016 Abnormal mammogram, unspecified 12/06/2007 12/23/2016 Embolism and thrombosis of unspecified site 10/1512/23/2016 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 12/23/2016 documented as of this encounter (statuses as of 12/23/2021) [facility] History of Past illness Narrative* Problem Noted Date Resolved Date Recurrent ventral incisional hernia 08/03/2012 12/23/2016 PE (pulmonary embolism) 04/28/2012 12/24/19 17 Wound infection 02/16/2012 12/23/2016 Abnormal mammogram, unspecified 12/06/2007 12/23/2016 Embolism and thrombosis of unspecified site 10/1512/23/2016 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 12/23/2016 documented as of this encounter (statuses as of 12/24/2021) [facility] of Past illness Narrative* Problem Noted Date Resolved Date Recurrent ventral incisional hernia 08/03/2012 12/23/2016 PE (pulmonary embolism) 04/28/2012 12/24/19 17 Wound infection 02/16/2012 12/23/2016 Abnormal mammogram, unspecified 12/06/2007 12/23/2016 Embolism and thrombosis of unspecified site 10/1512/23/2016 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 12/23/2016 documented as of this encounter (statuses as of 12/29/2021) [facility] of [facility] illness Narrative* Problem Noted Date Resolved Date Recurrent ventral incisional hernia 08/03/2012 12/23/2016 PE (pulmonary embolism) 04/28/2012 12/24/19 17 Wound infection 02/16/2012 12/23/2016 Abnormal mammogram, unspecified 12/06/2007 12/23/2016 Embolism and thrombosis of unspecified site 10/1512/23/2016 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 12/23/2016 documented as of this encounter (statuses as of 01/08/2022) [facility] of [facility] illness Narrative* Problem Noted Date Resolved Date Recurrent ventral incisional hernia 08/03/2012 12/23/2016 PE (pulmonary embolism) 04/28/2012 12/24/19 17 Wound infection 02/16/2012 12/23/2016 Abnormal mammogram, unspecified 12/06/2007 12/23/2016 Embolism and thrombosis of unspecified site 10/1512/23/2016 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 12/23/2016 documented as of this encounter (statuses as of 01/11/2022) [facility] of [facility] Narrative* Problem Noted Date Resolved Date Recurrent ventral incisional hernia 08/03/2012 12/23/2016 PE (pulmonary embolism) 04/28/2012 12/24/19 17 Wound infection 02/16/2012 12/23/2016 Abnormal mammogram, unspecified 12/06/2007 12/23/2016 Embolism and thrombosis of unspecified site 10/1512/23/2016 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 12/23/2016 documented as of this encounter (statuses as of 01/12/2022) [facility] of [facility] Narrative* Problem Noted Date Resolved Date Recurrent ventral incisional hernia 08/03/2012 12/23/2016 PE (pulmonary embolism) 04/28/2012 12/24/19 17 Wound infection 02/16/2012 12/23/2016 Abnormal mammogram, unspecified 12/06/2007 12/23/2016 Embolism and thrombosis of unspecified site 10/1512/23/2016 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 12/23/2016 documented as of this encounter (statuses as of 01/21/2022) [facility] of [facility] Narrative* Problem Noted Date Diagnosed Date Resolved Date Recurrent ventral incisional hernia 08/03/2012 12/23/2016 PE (pulmonary embolism) 04/28/201210/2016 Wound infection 02/16/2012 12/23/2016 Abnormal mammogram, unspecified 12/06/2007 12/23/2016 Embolism and thrombosis of unspecified site 10/28/2005 12/23/2016 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 7 documented as of this encounter (statuses as of 10/03/2022) [facility] of [facility] Narrative* Problem Noted Date Diagnosed Date Resolved Date Recurrent ventral incisional hernia 08/03/2012 12/23/2016 PE (pulmonary embolism) 04/28/201210/2016 Wound infection 02/16/2012 12/23/2016 Abnormal mammogram, unspecified 12/06/2007 12/23/2016 Embolism and thrombosis of unspecified site 10/28/2005 12/23/2016 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 7 documented as of this encounter (statuses as of 10/29/2022) [facility] of [facility] Narrative* Problem Noted Date Diagnosed Date Resolved Date Recurrent ventral incisional hernia 08/03/2012 12/23/2016 PE (pulmonary embolism) 04/28/201210/2016 Wound infection 02/16/2012 12/23/2016 Abnormal mammogram, unspecified 12/06/2007 12/23/2016 Embolism and thrombosis of unspecified site 10/28/2005 12/23/2016 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 7 documented as of this encounter (statuses as of 11/01/2022) [facility] Narrative* Problem Noted Date Diagnosed Date Resolved Date Recurrent ventral incisional hernia 08/03/2012 12/23/2016 PE (pulmonary embolism) 04/28/201210/2016 Wound infection 02/16/2012 12/23/2016 Abnormal mammogram, unspecified 12/06/2007 12/23/2016 Embolism and thrombosis of unspecified site 10/28/2005 12/23/2016 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 7 documented as of this encounter (statuses as of 12/07/2022) [facility] of [facility] Narrative* Problem Noted Date Diagnosed Date Resolved Date Recurrent ventral incisional hernia 08/03/2012 12/23/2016 PE (pulmonary embolism) 04/28/201210/2016 Wound infection 02/16/2012 12/23/2016 Abnormal mammogram, unspecified 12/06/2007 12/23/2016 Embolism and thrombosis of unspecified site 10/28/2005 12/23/2016 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 7 documented as of this encounter (statuses as of 12/19/2022) [facility]* Diagnosis Onset Date Resolution Status Paroxysmal atrial fibrillation acute Preop cardiovascular exam ac [place] Benign essential HTN chronic Chronic diastolic heart failure chronic Hyperlipidemia chronic Asthma acute Lung nodule [facility] Work Phone: evaluation note* Diagnosis Onset Date Resolution Status Paroxysmal atrial fibrillation acute Preop cardiovascular exam ac [place] Benign essential HTN chronic Chronic diastolic heart failure chronic Hyperlipidemia chronic Asthma acute Lung nodule chronic COPD with acute exacerbation acute COPD with acute exacerbation acute Cough acute Paroxysmal atrial fibrillation acute S/P hip replacement acute S/P total left hip arthroplasty acute Shortness of breath acute Diabetes mellitus chronic Hx pulmonary embolism chroni c Obesity [facility] Work Phone: Evaluation note* Diagnosis Onset Date Resolution Status Paroxysmal atrial fibrillation acute Preop cardiovascular exam ac [place] Benign essential HTN chronic Chronic diastolic heart [...] Chronic kidney disease, stage 3a chronic Hypertension [facility] Work Phone: Evaluation note* Diagnosis Onset Date Resolution Status Paroxysmal atrial fibrillation acute Preop cardiovascular exam ac [place] Benign essential HTN chronic Chronic diastolic heart [...] chronic Hypertension chronic Fever acute Pneumonia acute [facility] Work Phone: Evaluation note* Diagnosis Onset Date Resolution Status Paroxysmal atrial fibrillation acute Preop cardiovascular exam ac [place] Benign essential HTN chronic Chronic diastolic heart [...] acute Chronic diastolic congestive heart failure chronic [facility] Work Phone: Evaluation note* Diagnosis Onset [...] chronic Vitamin D deficiency chronic Hypokalemia resolved [facility] Work Phone: Evaluation note* Diagnosis Onset [...] Debility acute Pseudomonas pneumonia acute Hypokalemia resolved [facility] Work Phone: Evaluation note* Diagnosis Onset [...] surgical wound acute Nonhealing surgical wound ac [place] Status post total hip replacement, left acute [facility] Work Phone: Evaluation note* Diagnosis Headache, unspecified headache type- Primary Neck pain Cervicalgia Fever, unspecified fever cause [facility] this [facility] Diagnosis Vulvar dermatitis- Primary Other inflammatory disease of cervix, vagina and vulva Vulvar itching Pruritus of genital organs [facility] Diagnosis Vulvar dermatitis- Primary Other inflammatory disease of cervix, vagina and vulva Vulvar itching Pruritus of genital organs documented in this encounter [facility] note* Diagnosis Vulvar itching- Primary Pruritus of genital organs Encounter for screening mammogram for malignant neoplasm of breast Other screening mammogram [facility] Diagnosis Pruritus of vulva- Primary Pruritus of genital organs [facility] [facility]* Diagnosis Onset Date Resolution Status Heart failure with preserved ejection fraction acute Paroxysmal atrial fibrillation acute [facility] Work Phone: Evaluation note* Diagnosis Onset Date Resolution Status Asthma acute Daytime hypersomnia acute Morbid obesity acute [facility] Work Phone: Evaluation note* Diagnosis Onset Date Resolution Status Asthma acute Daytime hypersomnia acute Morbid obesity acute GAGAN (obstructive sleep apnea) acute Heart failure with preserved ejection fraction acute Hyperlipidemia acute Paroxysmal atrial fibrillation acute [facility] Work Phone: Evaluation note* Diagnosis Onset Date Resolution Status GAGAN (obstructive sleep apnea) acute Heart failure with preserved ejection fraction acute Hyperlipidemia acute Paroxysmal atrial fibrillation acute [facility] Work Phone: Evaluation noteNo assessment information available [facility] Work Phone: Evaluation note* Diagnosis Chronic pain of left ankle- Primary Avascular necrosis of bone of ankle (HCC) Avascular necrosis of left tibia (HCC) [facility] Vulvar irritation- Primary Other specified noninflammatory disorder of vulva and perineum [facility] Diagnosis Vaginal discharge- Primary Leukorrhea, not specified as infective Obesity, Class III, BMI >= 40 (morbid obesity) E66.01 Morbid obesity documented in this encounter [facility] note* Diagnosis Encounter for screening mammogram for malignant neoplasm of breast Other screening mammogram documented in this encounter [facility] note* Diagnosis Onset Date Resolution Status Heart failure with preserved ejection fraction acute Hyperlipidemia acute Paroxysmal atrial fibrillation acute Asthma chronic Bronchiectasis chronic Morbid obesity chronic GAGAN (obstructive sleep apnea) chronic GAGAN (obstructive sleep apnea) chronic [facility] Work Phone: Evaluation note* Diagnosis Onset Date Resolution Status Asthma chronic Bronchiectasis chronic Morbid obesity chronic GAGAN (obstructive sleep apnea) chronic GAGAN (obstructive sleep apnea) [facility] Work Phone: Evaluation note* Diagnosis Onset Date Resolution Status GAGAN (obstructive sleep apnea) chronic 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 Venous insufficiency (chronic) (peripheral) chronic [facility] Work Phone: evaluation note* Diagnosis Onset Date Resolution Status GAGAN (obstructive sleep apnea) chronic 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 Finish your Tamiflu. Continue the prednisone 40 mg a day for 7 more days starting tomorrow you received a dose of Solu-Medrol today through the IV. Follow-up with your doctor to ensure you are improving or return if feeling worse. Use your inhaler and nebulizer at home as needed.[facility] Work Phone: Hospital Discharge instructionsAdditional Instructions Please follow-up with Dr. Ambrocio tomorrow as scheduled. Use Zofran as needed to treat nausea. Push fluids at home. Continue take Tylenol as needed for fever. Continue with infusion. If you are not tolerating antibiotics and may need to switch to a different 1 but this might require increased frequency.[facility] Work Phone: Reason for referral (narrative)* Diagnostic Procedure Only (Routine) - Authorized Specialty Diagnoses / Procedures Referred By Leon briscoe Referred To Contact [facility] Diagnoses Encounter for screening mammogram for malignant neoplasm of breast Procedures SHANKAR SCREENING SCREENING MAMMOGRAPHY BI 2-VIEW BREAST INC Linda Sapp APRN.CNM [address] [place] [address] [facility] [address] [place] [address] Referral ID Status Reason Start Date Expiration Date Visits Requested Visits Authorized [id number] Authorized Auto-Generat ed Referral 02/07/2023 1 [facility] Diagnostic Procedure Only (Routine) - Closed Specialty Diagnoses / Procedures Referred By Leon briscoe Referred To Contact [facility] Diagnoses Encounter for screening mammogram for malignant neoplasm of breast Procedures SHANKAR SCREENING SCREENING MAMMOGRAPHY BI 2-VIEW BREAST INC Linda Sapp APRN.CNM [address] [place] [address] [address] [place] [address] Referral ID Status Reason Start Date Expiration Date V isits Requested Visits Authorized [id number] Closed Auto-Generate d Referral 01/08/2022 02/07/2023 1 1 [facility]No reason for referral information [facility] Work [facility]: Reason for visit Narrative* Diagnostic Procedure Only (Routine) - Closed Specialty Diagnoses / Procedures Referred By Contac t Referred To Contact [facility] Diagnoses Encounter for screening mammogram for malignant neoplasm of breast Procedures SHANKAR SCREENING SCREENING MAMMOGRAPHY BI 2-VIEW BREAST INC Linda Sapp, TANYA.CNM [address] [place] [address] [facility] [address] [place] [address] Referral ID Status Reason Start Date Expiration Date V isits Requested Visits Authorized [id number] Closed Auto-Generate d Referral 01/08/2022 02/07/2023 1 1 [facility] Summary Purpose Family History No Family History Records Found Relationship Condition Age at Onset Recorded Date/T steve mother Hypertension Unknown Diabetes mellitus Unknown Cardiac disease Unknown Pulmonary embolism Unknown father Peptic ulcer with perforation Unknown Respiratory failure Unknown sister Asthma Unknown Hypertension Unknown Advance Directives No Advanced Directives Records Found Advance Directive Response Recorded Date/ Time Name of Medical Power of Office Systems Technology Instructor Juanita Petersen April 01, 2021 11:16am Advance Directives Yes March 8:55pm Living Will Yes May 12, 2021 4:00pm Power of Office Systems Technology Instructor Yes May 12 4:00pm Advance Directive Response Recorded Date/ Time Name of Medical Power of Office Systems Technology Instructor Juanita Petersen April 01, 2021 11:16am Name of Medical Power of Office Systems Technology Instructor JUANITA May 12, 2021 4:00pm Advance Directives Yes March 8:55pm Living Will Yes June 24, 2021 3 :44pm Power of Office Systems Technology Instructor Yes June 24, 2021 3:44pm Advance Directive Response Recorded Date/ Time Name of Medical Power of Office Systems Technology Instructor Juanita Petersen April 01, 2021 11:16am Name of Medical Power of Office Systems Technology Instructor JUANITA May 12, 2021 4:00pm Name of Medical Power of Office Systems Technology Instructor Sister Juanita June 24, 2021 3:44pm Name of Medical Power of Office Systems Technology Instructor Juanita Casarez , June 29, 2021 12:19pm Advance Directives Yes March 8:55pm Living Will Yes July 03, 2021 1 1:48pm Power of Office Systems Technology Instructor Yes July 03, 2021 11:48pm Advance Directive Response Recorded Date/ Time Name of Medical Power of Office Systems Technology Instructor Juanita Petersen April 01, 2021 11:16am Name of Medical Power of Office Systems Technology Instructor JUANITA May 12, 2021 4:00pm Name of Medical Power of Office Systems Technology Instructor Sister Juanita June 24, 2021 3:44pm Name of Medical Power of Office Systems Technology Instructor Juanita Casarez , sister June 29, 2021 12:19pm Name of Medical Power of Office Systems Technology Instructor Juanita Lala July 03, 2021 11:48pm Advance Directives Yes March 8:55pm Living Will Yes July 04, 2021 9 :57am Power of Office Systems Technology Instructor Yes July 04, 2021 9:57am Advance Directive Response Recorded Date/ Time Name of Medical Power of Office Systems Technology Instructor Juanita Petersen April 01, 2021 11:16am Name of Medical Power of Office Systems Technology Instructor JUANITA May 12, 2021 4:00pm Name of Medical Power of Office Systems Technology Instructor Sister Juanita June 24, 2021 3:44pm Name of Medical Power of Office Systems Technology Instructor Juanita Casarez , sister June 29, 2021 12:19pm Name of Medical Power of Office Systems Technology Instructor Juanita Lala July 03, 2021 11:48pm Name of Medical Power of Office Systems Technology Instructor juanita, July 04, 2021 9:57am Advance Directives Yes March 8:55pm Living Will Yes July 06, 2021 4 :10pm Power of Office Systems Technology Instructor Yes July 06, 2021 4:10pm Advance Directive Response Recorded Date/ Time Name of Medical Power of Office Systems Technology Instructor Juanita Petersen April 01, 2021 11:16am Name of Medical Power of Office Systems Technology Instructor JUANITA May 12, 2021 4:00pm Name of Medical Power of Office Systems Technology Instructor Sister Juanita June 24, 2021 3:44pm Name of Medical Power of Office Systems Technology Instructor Juanita Casarez , sister June 29, 2021 12:19pm Name of Medical Power of Office Systems Technology Instructor Juanita Lala July 03, 2021 11:48pm Name of Medical Power of Office Systems Technology Instructor juanita, sister July 04, 2021 9:57am Name of Medical Power of Office Systems Technology Instructor Juanita Casarez July 06, 2021 4:10pm Advance Directives Yes March 8:55pm Living Will Yes July 06, 2021 4 :10pm Power of Office Systems Technology Instructor Yes July 06, 2021 4:10pm Advance Directive Response Recorded Date/ Time Name of Medical Power of Office Systems Technology Instructor JUANITA May 12, 2021 4:00pm Name of Medical Power of Office Systems Technology Instructor Sister Juanita June 24, 2021 3:44pm Name of Medical Power of Office Systems Technology Instructor Juanita Casarez , June 29, 2021 12:19pm Name of Medical Power of Office Systems Technology Instructor Juanita Lala July 03, 2021 11:48pm Name of Medical Power of Office Systems Technology Instructor juanita, July 04, 2021 9:57am Name of Medical Power of Office Systems Technology Instructor Juanita Casarez July 06, 2021 4:10pm Advance Directives Yes March 8:55pm Living Will Yes July 06, 2021 4 :10pm Power of Office Systems Technology Instructor Yes July 06, 2021 4:10pm Documents on File Type Date Recorded 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 Advance Directive(s) 12/15/2016 5:49 PM Advance Directive Response Recorded Date/ Time Name of Medical Power of Office Systems Technology Instructor Sister Juanita June 24, 2021 3:44pm Name of Medical Power of Office Systems Technology Instructor Juanita Casarez , June 29, 2021 12:19pm Name of Medical Power of Office Systems Technology Instructor Juanita Lala July 03, 2021 11:48pm Name of Medical Power of Office Systems Technology Instructor juanita, July 04, 2021 9:57am Name of Medical Power of Office Systems Technology Instructor Juanita Casarez July 06, 2021 4:10pm Advance Directives Yes March 8:55pm Living Will No September 12, 2021 12:06pm Power of Office Systems Technology Instructor No September 12 12:06pm Advance Directive Response Recorded Date/ Time Advance Directives Yes March 7:55pm Living Will No September 12, 2021 11:06am Power of Office Systems Technology Instructor No September 12 11:06am Advance Directive Response Recorded Date/ Time Advance Directives Yes March 8:55pm Living Will No May 08, 2022 1:18pm Power of Office Systems Technology Instructor No May 08 1:18pm Advance Directive Response Recorded Date/ Time Advance Directives Yes March 7:55pm Living Will No May 08, 2022 12:18pm Power of Office Systems Technology Instructor No May 08 12:18pm Advance Directive Response Recorded Date/ Time Advance Directives Yes December 9:15am Advance Directive Response Recorded Date/ Time Do you have a Healthcare Power of Office Systems Technology Instructor? 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) Avascular necrosis of left tibia (HCC) Procedures CONSULT TO ORTHOTIC/PROSTHETIC Keyon Meade DPM [address] [place] [address] Referral ID Status Reason Start Date Expiration Date V isits Requested Visits Authorized [id number] Ref Not Required 09/16/2022 11/15/2022 1 1 Additional Source Comments INFORMATION SOURCE (unrecogn ized section and content) DATE CREATED AUTHOR 08/08/2017 [facility] DATE CREATED AUTHOR AUTHOR'S ORGANIZ ATION 08/09/2017 [facility] DATE CREATED AUTHOR AUTHOR'S ORGANIZ ATION [facility]/2021 [facility] DATE CREATED AUTHOR AUTHOR'S ORGANIZ ATION 11/07/2022 [facility] DATE CREATED AUTHOR AUTHOR'S ORGANIZ ATION 05/07/2024 [facility] DATE CREATED AUTHOR AUTHOR'S ORGANIZ ATION 09/09/2024 [facility] Goals (unrecognized section and content) Goals may [...] or prosecute any alcohol or drug abuse patient.[facility] the event this information is protected by the Federal Confidentiality of Alcohol and Drug Abuse Patient Records regulations: The Federal rules restrict any use of the information to criminally investigate or prosecute any alcohol or drug abuse patient.[facility] the event this information is protected by the Federal Confidentiality of Alcohol and Drug Abuse Patient Records regulations: The Federal rules restrict any use of the information to criminally investigate or prosecute any alcohol or drug abuse patient.[facility] the event this information is protected by the Federal Confidentiality of Alcohol and Drug Abuse Patient Records regulations: The Federal rules restrict any use of the information to criminally investigate or prosecute any alcohol or drug abuse patient.[facility] the event this information is protected by the Federal Confidentiality of Alcohol and Drug Abuse Patient Records regulations: The Federal rules restrict any use of the information to criminally investigate or prosecute any alcohol or drug abuse patient.[facility] the event this information is protected by the Federal Confidentiality of Alcohol and Drug Abuse Patient Records regulations: The Federal rules restrict any use of the information to criminally investigate or prosecute any alcohol or drug abuse patient.[facility] the event this information is protected by the Federal Confidentiality of Alcohol and Drug Abuse Patient Records regulations: The Federal rules restrict any use of the information to criminally investigate or prosecute any alcohol or drug abuse patient.[facility] the event this information is protected by the Federal Confidentiality of Alcohol and Drug Abuse Patient Records regulations: The Federal rules restrict any use of the information to criminally investigate or prosecute any alcohol or drug abuse patient.[facility] the event this information is protected by the Federal Confidentiality of Alcohol and Drug Abuse Patient Records regulations: The Federal rules restrict any use of the information to criminally investigate or prosecute any alcohol or drug abuse patient.[facility] the event this information is protected by the Federal Confidentiality of Alcohol and Drug Abuse Patient Records regulations: The Federal rules restrict any use of the information to criminally investigate or prosecute any alcohol or drug abuse patient.[facility] the event this information is protected by the Federal Confidentiality of Alcohol and Drug Abuse Patient Records regulations: The Federal rules restrict any use of the information to criminally investigate or prosecute any alcohol or drug abuse patient.[facility] the event this information is protected by the Federal Confidentiality of Alcohol and Drug Abuse Patient Records regulations: The Federal rules restrict any use of the information to criminally investigate or prosecute any alcohol or drug abuse patient.[facility] the event this information is protected by the Federal Confidentiality of Alcohol and Drug Abuse Patient Records regulations: The Federal rules restrict any use of the information to criminally investigate or prosecute any alcohol or drug abuse patient.[facility] the event this information is protected by the Federal Confidentiality of Alcohol and Drug Abuse Patient Records regulations: The Federal rules restrict any use of the information to criminally investigate or prosecute any alcohol or drug abuse patient.[facility] the event this information is protected by the Federal Confidentiality of Alcohol and Drug Abuse Patient Records regulations: The Federal rules restrict any use of the information to criminally investigate or prosecute any alcohol or drug abuse patient.[facility] Reason for Visit (unrecogniz ed section and content) Reason Comments Fever neck pain, JONES, chill s x1 day Reason Comments vulvar itching Intermittently since May Reason Comments Results Reason Comments Patient Update [...] Care Teams (unrecognized sec tion and content) Powder Worker Relationship Specialty Start Date End Date Moreno Donnelly MD [address] [place] [place] [address] PCP - General 11/27/07 Moreno Donnelly MD [address] [place] [place] [address] Referring Family Practice 10/01/20 Powder Worker Relationship Specialty Start Date End Date Moreno Donnelly MD [address] [place] [place] [address] PCP - General 11/27/07 Moreno Donnelly MD [address] [place] [place] [address] Referring Family Medicine 10/01/20 Powder Worker Relationship Specialty Start Date End Date Moreno Donnelly MD [address] [place] [place] [address] PCP - General 11/27/07 Moreno Donnelly MD [address] [place] [address] Referring Family Medicine 10/01/20 Powder Worker Relationship Specialty Start Date End Date Moreno Donnelly MD [address] [place] [address] PCP - General 11/27/07 Moreno Donnelly MD [address] [place] [address] Referring Family Medicine 10/01/20 Powder Worker Relationship Specialty Start Date End Date Moreno Donnelly MD [address] [place] [address] PCP - General 11/27/07 Moreno Donnelly MD [address] [place] [address] Referring Family Medicine 10/01/20 Powder Worker Relationship Specialty Start Date End Date Moreno Donnelly MD [address] [place] [address] PCP - General 11/27/07 Moreno Donnelly MD [address] [place] [address] Referring Family Medicine 10/01/20 Powder Worker Relationship Specialty Start Date End Date Moreno Donnelly MD [address] [place] [address] PCP - General 11/27/07 Moreno Donnelly MD [address] [place] [address] Referring Family Medicine 10/01/20 Team Status: Active Member Role Status Dates Dr. Ervin Donnelly MD Family Provider Active Dr. Ervin Donnelly MD Primary Care Provider Activ e Team Status: Inactive Member Role Status Dates Dr. Ervin Donnelly MD Primary Care Provider Activ e Marie Langley TECH WRITER, TECH WRITER-C Attending Provider, Sonia everett Provider Active Team Status: Inactive Member Role [...] Provider, Refe rring Provider Active Adry Pires NP, TECH WRITER-C Attending Provider Active Team Status: Inactive Member [...] Primary Care Provider Activ e Daphne Chicas TECH WRITER-C Attending Provider, Referring Pr ovider Active Team Status: Inactive Member Role Status Dates Dr. Ervin Donnelly MD Primary Care Provider Activ e Dr. Nicky Cavanaugh , DPM Attending Provider, Referring Provider Active Team Status: Inactive Member Role Status Dates Dr. Ervin Donnelly MD Primary Care Provider, Atte nding Provider Active Powder Worker Relationship Specialty Start Date End Date Moreno Donnelly MD [address] [place], [place] [address] PCP - General 11/27/07 Moreno Donnelly MD [address] [place], [place] [address] Referring Family Medicine 10/01/20 Powder Worker Relationship Specialty Start Date End Date Moreno Donnelly MD [address] [place], [place] [id number] PCP - General 11/27/07 Moreno Donnelly MD [address] [place], [place] [id number] Referring Family Medicine 10/01/20 Powder Worker Relationship Specialty Start Date End Date Moreno Donnelly MD [address] [place], [place] [address] PCP - General 11/27/07 Moreno Donnelly MD [address] [place], [place] [address] Referring Family Medicine 10/01/20 Powder Worker Relationship Specialty Start Date End Date Moreno Donnelly MD [address] [place], [place] [address] PCP - General 11/27/07 Moreno Donnelly MD [address] [place] [address] Referring Family Medicine 10/01/20 Powder Worker Relationship Specialty Start Date End Date Moreno Donnelly MD [address] [place], [place] [address] PCP - General 11/27/07 Moreno Donnelly MD [address] [place], [place] [address] Referring Family Medicine 10/01/20 Team Status: Inactive Member Role Status Dates Dr. Ervin Donnelly MD Primary Care Provider, Refe ing Provider Active Marie Langley TECH WRITER, TECH WRITER-C Attending Provider Active Team Status: Inactive Member Role Status Dates Dr. Ervin Donnelly MD Primary Care Provider Activ familia Pires TECH WRITER, TECH WRITER-C Attending Provider, Daysi longoria Active Team Status: Active Member Role Status Dates Dr. Ervin Donnelly MD Primary Care Provider Activ e Dr. Joo Higuera MD Attending Provider Active Team Status: Inactive Member Role Status Dates Dr. Ervin Donnelly MD Primary Care Provider Activ e Dr. Nicky Cavanaugh DPM Attending Provider, Referring Provider Active Marie Langley TECH WRITER, TECH WRITER-C Other Provider Active Team Status: Active Member [...] Attending Provider, Referring Provider Active Marie Langley NP, TECH WRITER-C Other Provider Active Team Status: Inactive Member Role Status Dates Dr. Moreno Donnelly MD Primary Care Provider Acti ve Dr. Nicky Cavanaugh DPM Attending Provider, Referring Provider Active Powder Worker Relationship Specialty Start Date End Date Moreno Donnelly MD [address] [facility] [place] [place], [place] [address] PCP - General 11/27/07 Moreno Donnelly MD [address] [place] [address] Referring Family Medicine 10/01/20 Powder Worker Relationship Specialty Start Date End Date Moreno Donnelly MD [address] [place] [id number] PCP - General 11/27/07 Moreno Donnelly MD [address] [place] [address] Referring Family Medicine 10/01/20 Team Status: Active Member Role Status Dates Dr. Moreno Donnelly MD Primary Care Provider Acti ve Team Status: Inactive Member Role Status Dates Dr. Moreno Donnelly MD Primary Care Provider Acti ve Start: February 09, 2024 End: February 09, 2024 Jan Davenport TECH WRITER, TECH WRITER-C Attending Provider Active Start: February 09, 2024 End: February 09, 2024 Jan Davenport TECH WRITER, TECH WRITER-C Referring Provider Active Start: February 09, 2024 [...] End: April 11, 2024 Jeanie Arteaga NP, TECH WRITER-C Attending Provider Active Start: April 11, 2024 [...] 2024 End: July 05, 2024 Jeanie Arteaga TECH WRITER, TECH WRITER-C Attending Provider Active Start: July 05, 2024 End: July 05, 2024 Jeanie Arteaga TECH WRITER, TECH WRITER-C Referring Provider Active Start: July 05, 2024 [...] 2024 End: July 05, 2024 Jeanie Arteaga TECH WRITER, TECH WRITER-C Attending Provider Active Start: July 05, 2024 End: July 05, 2024 Jeanie Arteaga NP, TECH WRITER-C Referring Provider Active Start: July 05, 2024 [...] Inactive Member Role/Relationship Status Dates Dr. Moreno oDnnelly MD Primary Care Provider Acti ve Start: [...] 2024 End: July 05, 2024 Jeanie Arteaga TECH WRITER, TECH WRITER-C Attending Provider Active Start: July 05, 2024 End: July 05, 2024 Jeanie Arteaga TECH WRITER, TECH WRITER-C Referring Provider Active Start: July 05, 2024 [...] September 07, 2024 End: September 07, 2024 Team Status: Inactive Member Role/Relationship Status [...] 2024 End: July 05, 2024 Jeanie Arteaga TECH WRITER, TECH WRITER-C Attending Provider Active Start: July 05, 2024 End: July 05, 2024 Jeanie Arteaga NP, TECH WRITER-C Referring Provider Active Start: July 05, 2024 [...] September 07, 2024 End: September 07, 2024 Team Status: Inactive Member Role/Relationship Status Dates Dr. Moreno Donnelly MD Primary Care Provider Acti ve Start: September 08, 2024 End: September 08, 2024 Dr. Peter Ambrocio MD Attending Provider Active Start: September 08, 2024 End: September 08, 2024 Dr. Peter Ambrocio MD Referring Provider Active Start: September 08, 2024 End: September 08, 2024 FOR RECORDS PERTAINING TO PATIENTS WHO [...] BE BASED ON THE PRIMARY CLINICAL RECORDS. [facility] [employer] provides no warranty or guarantee of the accuracy or completeness of information in this document.
[2024-09-09 08:10] VITALS: BP 110/64; PULSE 97
[2024-09-09] MEDS: Cefepime HCl 2 GM in 0.9% Normal Saline (100mL MB+) 100 ML IV ×2 (08:14→20:40)
[2024-09-09 20:23] VITALS: BP 112/57; PULSE 97
[2024-09-09 20:43] VITALS: BP 112/57; PULSE 97; RESP 18; TEMP 37.5; O2SAT 100
== END 2024-09-09 21:53 | disposition home or self-care (01) ==
LOC: MEDOUTP 07:55 → MS3 20:10
PROVIDERS: PCP Family Medicine; Referring Provider Internal Medicine Pulmonary Disease; Visit Provider Internal Medicine Pulmonary Disease
DX: J47.9 Bronchiectasis, uncomplicated (principal)
CPT/HCPCS: 96365

== ENCOUNTER 2024-09-10 07:52 | Outpatient (CLI) | payer MEDICARE, OTHER, SELFPAY ==
[2024-09-10 08:16] VITALS: BP 117/54; PULSE 89; RESP 16; TEMP 35.8; O2SAT 100; BMI 34.7
[2024-09-10] MEDS: 0.9% NaCl Peripheral Flush Adult IV ×2 (08:47→20:35)
[2024-09-10] MEDS: Cefepime HCl 2 GM in 0.9% Normal Saline (100mL MB+) 100 ML IV ×2 (08:48→20:22)
[2024-09-10] MEDS: 0.9% NaCl IVPB Med Flush (100mL) 15 ML IV (08:48)
[2024-09-10 09:47] VITALS: BP 110/52; PULSE 89; RESP 16; TEMP 35.9; O2SAT 98
[2024-09-10 18:51] LABS: AST(SGOT) 35 U/L (<=31); Alanine Aminotransfer ALT/SGPT 48 U/L (<=34); Albumin, Serum 3.2 g/dL (3.4-4.8); Alkaline Phosphatase 160 U/L (35-104); Anion Gap 18 (5-15); BUN 25 mg/dL (4-19); BUN/Creat Ratio 15.0 RATIO (10-20); CORTISOL PM 18.70 ug/dL (2.68-10.50); CRP 229.00 mg/L (0.0-3.0); Calcium,Total 9.4 mg/dL (7.6-11.0); Carbon Dioxide 18.0 mmol/L (21.0-32.0); Chloride 106 mmol/L (98-108); Estimated Creatinine Clearance 30.35 ml/min (50-250); Globulin 3.7 g/dL (2.2-4.2); Glucose 82 mg/dL (70-99); Potassium 3.0 mmol/L (3.3-5.1)
[2024-09-10 19:19] LABS: Vitamin B12 2729 pg/mL (180-914)
[2024-09-10] MEDS: 0.9% NaCl IVPB Med Flush (250 mL) 15 ML IV (20:22)
[2024-09-10 20:27] VITALS: PULSE 97; RESP 16; TEMP 36.8; O2SAT 97; BMI 34.7
[2024-09-10 21:09] VITALS: BP 128/61; PULSE 98; RESP 16; TEMP 36.7; O2SAT 98
[2024-09-10 21:32] LABS: Hematocrit 33.3 % (37-47); Hemoglobin 10.5 g/dL (12.0-15.0); Immature Granulocytes Count 0.040 X10^3/uL (0.0-0.0); Mean Corp Hgb Conc 31.5 g/dL (32-36); Mean Corpuscular Volume 90.2 fL (81-99); Mean Platelet Vol. 11.0 fl (6.2-12.0); NRBC Flagged by Analyzer 0 % (0-5); POSITIVE MORPHOLOGY YES; Platelet Count 299 K/mm3 (150-450); RBC Distribution Width CV 15.2 % (11.6-14.6); RBC Distribution Width SD 50.9 fl (35.1-43.9); Red Blood Count 3.69 M/mm3 (4.2-5.4); White Blood Count 8.6 K/mm3 (4.4-11.0)
[2024-09-10 21:33] LABS: Differential Indicated SCAN CRITERIA MET
[2024-09-10 21:36] LABS: Differential Comment SCANNED
== END 2024-09-10 21:10 | disposition home or self-care (01) ==
LOC: MEDOUTP 07:53 → ICU 19:51
PROVIDERS: PCP Family Medicine; Referring Provider Internal Medicine Pulmonary Disease; Visit Provider Internal Medicine Pulmonary Disease
DX: J47.9 Bronchiectasis, uncomplicated (principal); L03.90 Cellulitis, unspecified; R50.9 Fever, unspecified
CPT/HCPCS: 96365; 36415; 80053; 82533; 82607; 85025; 85652; 86140; 87040; A4216

== ENCOUNTER 2024-09-11 08:01 | Outpatient (CLI) | payer MEDICARE, OTHER, SELFPAY ==
[2024-09-11] MEDS: Cefepime HCl 2 GM in 0.9% Normal Saline (100mL MB+) 100 ML IV ×2 (08:29→20:21)
[2024-09-11] MEDS: 0.9% NaCl IVPB Med Flush (100mL) 15 ML IV (08:29)
[2024-09-11] MEDS: 0.9% NaCl Peripheral Flush Adult IV ×3 (08:29→20:22)
[2024-09-11 08:30] VITALS: BP 121/48; PULSE 106; RESP 20; TEMP 36.3; O2SAT 98; BMI 34.7
[2024-09-11 09:23] VITALS: BP 95/73; PULSE 95; TEMP 36.5
[2024-09-11 20:00] VITALS: BP 123/57; PULSE 113; RESP 20; TEMP 38.2; O2SAT 100
== END 2024-09-11 21:01 | disposition home or self-care (01) ==
LOC: MEDOUTP 09:30 → MS3 19:57
PROVIDERS: PCP Family Medicine; Referring Provider Internal Medicine Pulmonary Disease; Visit Provider Internal Medicine Pulmonary Disease
DX: J47.9 Bronchiectasis, uncomplicated (principal)
CPT/HCPCS: 96365; A4216

== ENCOUNTER 2024-09-12 20:10 | Outpatient (CLI) | payer MEDICARE, OTHER, SELFPAY ==
[2024-09-12 08:19] VITALS: BP 110/78; PULSE 97; RESP 16; TEMP 35.8; O2SAT 100; BMI 34.7
[2024-09-12] MEDS: 0.9% NaCl IVPB Med Flush (100mL) 15 ML IV (08:27)
[2024-09-12] MEDS: Cefepime HCl 2 GM in 0.9% Normal Saline (100mL MB+) 100 ML IV ×2 (08:27→20:52)
[2024-09-12] MEDS: 0.9% NaCl Peripheral Flush Adult IV ×2 (08:27→09:24)
[2024-09-12 09:23] VITALS: BP 115/79; PULSE 102; RESP 18; TEMP 36.1; O2SAT 100
[2024-09-12 20:23] VITALS: BP 134/74; PULSE 95; RESP 16; TEMP 36.7; O2SAT 96
[2024-09-12 21:40] VITALS: BP 137/101; PULSE 99; RESP 18; TEMP 37; O2SAT 98
== END 2024-09-12 21:45 | disposition home or self-care (01) ==
LOC: MEDOUTP 20:10 → MS3 20:11
PROVIDERS: PCP Family Medicine; Referring Provider Internal Medicine Pulmonary Disease; Visit Provider Internal Medicine Pulmonary Disease
DX: J47.9 Bronchiectasis, uncomplicated (principal)
CPT/HCPCS: 96365; A4216

== ENCOUNTER 2024-09-13 19:58 | Outpatient (CLI) | payer MEDICARE, OTHER, SELFPAY ==
[2024-09-13 08:09] VITALS: BP 111/60; PULSE 106; RESP 18; TEMP 35.8; O2SAT 100; BMI 34.7
[2024-09-13] MEDS: NORMAL SALINE 0.9% IV (08:14)
[2024-09-13] MEDS: 0.9% NaCl IVPB Med Flush (100mL) 15 ML IV (08:14)
[2024-09-13] MEDS: CEFEPIME HCL IV (08:14)
[2024-09-13] MEDS: 0.9% NaCl Peripheral Flush Adult IV ×3 (08:14→20:30)
[2024-09-13 08:55] VITALS: BP 101/56; PULSE 91; RESP 16; TEMP 35.8; O2SAT 97
[2024-09-13 20:12] VITALS: BP 95/63; PULSE 90; RESP 18; TEMP 36.7; O2SAT 99
[2024-09-13] MEDS: 0.9% NaCl IVPB Med Flush (250 mL) 15 ML IV (20:30)
[2024-09-13] MEDS: Cefepime HCl 2 GM in 0.9% Normal Saline (100mL MB+) 100 ML IV (20:30)
[2024-09-13 21:29] VITALS: BP 112/71; PULSE 80; RESP 18; TEMP 36.8; O2SAT 100
--- NOTE | 2024-09-13 21:39 | NURSING ---
Pt had some complaints of itching during her infusion of cefepime tonight. She said she has noticed it the last couple of infusions. I will pass the information along to infusion center if possible.
== END 2024-09-13 21:40 | disposition home or self-care (01) ==
LOC: MEDOUTP 19:59 → MS3 20:00
PROVIDERS: PCP Family Medicine; Referring Provider Internal Medicine Pulmonary Disease; Visit Provider Internal Medicine Pulmonary Disease
DX: J47.9 Bronchiectasis, uncomplicated (principal)
CPT/HCPCS: 96365; A4216

== ENCOUNTER 2024-09-14 07:44 | Outpatient (CLI) | payer MEDICARE, OTHER, SELFPAY ==
[2024-09-14 08:01] VITALS: BP 134/59; PULSE 82; RESP 16; TEMP 35.9; O2SAT 99; BMI 34.7
[2024-09-14] MEDS: CEFEPIME HCL IV (08:43)
[2024-09-14] MEDS: NORMAL SALINE 0.9% IV (08:43)
[2024-09-14 09:35] VITALS: BP 119/55; PULSE 85; RESP 16; TEMP 35.8; O2SAT 98
[2024-09-14 10:20] LABS: Differential Indicated SCAN CRITERIA MET; Hematocrit 29.5 % (37-47); Hemoglobin 9.2 g/dL (12.0-15.0); Immature Granulocytes Count 0.020 X10^3/uL (0.0-0.0); Mean Corp Hgb Conc 31.2 g/dL (32-36); Mean Corpuscular Volume 91.0 fL (81-99); Mean Platelet Vol. 11.7 fl (6.2-12.0); NRBC Flagged by Analyzer 0 % (0-5); POSITIVE MORPHOLOGY YES; Platelet Count 168 K/mm3 (150-450); RBC Distribution Width CV 16.1 % (11.6-14.6); RBC Distribution Width SD 53.4 fl (35.1-43.9); Red Blood Count 3.24 M/mm3 (4.2-5.4); White Blood Count 6.0 K/mm3 (4.4-11.0)
[2024-09-14 10:37] LABS: Differential Comment SCANNED
[2024-09-14 11:33] LABS: CRP 19.90 mg/L (0.0-3.0)
[2024-09-14 11:39] LABS: AST(SGOT) 11 U/L (<=31); Alanine Aminotransfer ALT/SGPT 25 U/L (<=34); Albumin, Serum 3.2 g/dL (3.4-4.8); Alkaline Phosphatase 112 U/L (35-104); Anion Gap 16 (5-15); BUN 49 mg/dL (4-19); BUN/Creat Ratio 23.3 RATIO (10-20); Bilirubin, Direct 0.14 mg/dL (0.00-0.30); Calcium,Total 9.7 mg/dL (7.6-11.0); Carbon Dioxide 15.7 mmol/L (21.0-32.0); Chloride 110 mmol/L (98-108); Estimated Creatinine Clearance 24.54 ml/min (50-250); Globulin 3.6 g/dL (2.2-4.2); Glucose 101 mg/dL (70-99); Potassium 3.8 mmol/L (3.3-5.1)
== END 2024-09-14 23:59 | disposition home or self-care (01) ==
PROVIDERS: PCP Family Medicine; Referring Provider Internal Medicine Pulmonary Disease; Visit Provider Internal Medicine Pulmonary Disease
DX: J47.9 Bronchiectasis, uncomplicated (principal)
CPT/HCPCS: 96365; 36415; 80048; 80076; 83605; 85025; 86140; A4216

== ENCOUNTER → 2024-09-20 | Outpatient (CLI) | payer MEDICARE, OTHER, SELFPAY ==
[2024-09-20 10:11] LABS: Hematocrit 35.5 % (37-47); Hemoglobin 11.1 g/dL (12.0-15.0); Immature Reticulocyte Fraction 5.70 % (3.00-15.90); Mean Corp Hgb Conc 31.3 g/dL (32-36); Mean Corpuscular Volume 93.7 fL (81-99); Mean Platelet Vol. 11.0 fl (6.2-12.0); Platelet Count 298 K/mm3 (150-450); RBC Distribution Width CV 15.7 % (11.6-14.6); RBC Distribution Width SD 53.4 fl (35.1-43.9); Red Blood Count 3.79 M/mm3 (4.2-5.4); Reticulocyte Count 3.39 % (0.5-1.5); White Blood Count 2.5 K/mm3 (4.4-11.0)
[2024-09-20 12:17] LABS: Anion Gap 15 (5-15); BUN 42 mg/dL (4-19); BUN/Creat Ratio 28.6 RATIO (10-20); CRP 15.70 mg/L (0.0-3.0); Calcium,Total 9.3 mg/dL (7.6-11.0); Carbon Dioxide 21.5 mmol/L (21.0-32.0); Chloride 106 mmol/L (98-108); Glucose 93 mg/dL (70-99); Potassium 4.3 mmol/L (3.3-5.1)
== END | disposition home or self-care (01) ==
LOC: LAB 09:44
PROVIDERS: PCP Family Medicine; Referring Provider Family Medicine; Visit Provider Family Medicine
DX: D64.9 Anemia, unspecified (principal); E11.22 Type 2 diabetes mellitus with diabetic chronic kidney disease; R79.82 Elevated C-reactive protein (CRP)
CPT/HCPCS: 36415; 80048; 85027; 85045; 86140

== ENCOUNTER → 2024-09-24 | Outpatient (CLI) | payer MEDICARE, OTHER, SELFPAY ==
[2024-09-24 15:22] LABS: Hematocrit 32.0 % (37-47); Hemoglobin 9.7 g/dL (12.0-15.0); Immature Granulocytes Count 0.030 X10^3/uL (0.0-0.0); Mean Corp Hgb Conc 30.3 g/dL (32-36); Mean Corpuscular Volume 93.8 fL (81-99); Mean Platelet Vol. 11.6 fl (6.2-12.0); NRBC Flagged by Analyzer 0 % (0-5); POSITIVE DIFFERENTIAL YES; POSITIVE MORPHOLOGY YES; Platelet Count 260 K/mm3 (150-450); RBC Distribution Width CV 15.3 % (11.6-14.6); RBC Distribution Width SD 53.2 fl (35.1-43.9); Red Blood Count 3.41 M/mm3 (4.2-5.4); White Blood Count 2.0 K/mm3 (4.4-11.0)
[2024-09-24 16:44] LABS: AST(SGOT) 11 U/L (<=31); Alanine Aminotransfer ALT/SGPT 11 U/L (<=34); Albumin, Serum 3.2 g/dL (3.4-4.8); Alkaline Phosphatase 100 U/L (35-104); Anion Gap 15 (5-15); BUN 38 mg/dL (4-19); BUN/Creat Ratio 23.9 RATIO (10-20); CRP 188.00 mg/L (0.0-3.0); Calcium,Total 9.3 mg/dL (7.6-11.0); Carbon Dioxide 22.1 mmol/L (21.0-32.0); Chloride 104 mmol/L (98-108); Globulin 4.3 g/dL (2.2-4.2); Glucose 88 mg/dL (70-99); Potassium 4.2 mmol/L (3.3-5.1)
[2024-09-24 23:33] LABS: Differential Indicated SCAN CRITERIA MET
== END | disposition home or self-care (01) ==
LOC: MFPLAB 11:30
PROVIDERS: PCP Family Medicine; Visit Provider Family Medicine
DX: R79.82 Elevated C-reactive protein (CRP) (principal)
CPT/HCPCS: 36415; 80053; 85025; 86140

== ENCOUNTER 2024-09-26 10:41 | Inpatient (IN) | payer MEDICARE, OTHER, SELFPAY ==
[2024-09-26] VITALS (10 sets, daily range): BP systolic 116–155; BP diastolic 61–101; PULSE 78–106; RESP 12–25; TEMP 36.9–37.4; O2SAT 95–100; BMI 35.5; BMI 34.0
--- NOTE | 2024-09-26 11:06 | RAD_ITS ---
PROCEDURE: CHEST PA AND LATERAL 09/26/2024 REASON FOR EXAM: NEUTROPENIA, RECURRENT PNEUMONIA TECHNIQUE: CHEST PA AND LATERAL COMPARISON: Chest x-ray of 09/05/2024 RAD/Chest PA and Lateral IMPRESSION: Mild bilateral lower lung areas of discoid atelectasis or scarring are seen. C hronic lung changes appear stable. Stable appears of the right mid to upper lung lateral nodule. No evidence of pulmonary edema. No focal infiltrate is seen. No pleural effusion or pneumothorax is noted. The cardiomediastinal silhouette is stable, without evidence of cardiomegaly. A partially calcified aorta is seen. [id number] degenerative changes of the visualized spine are seen. Partially visualized right shoulder prosthesis again noted. Reading Location: [id number]
--- NOTE | 2024-09-26 11:22 | EX.ED.DYSGE1 ---
HPI History of Present Illness Chief Complaint: Abn Labs Narrative Narrative: Chief complaint and HPI: Neutropenia and fevers. 69-year-old female with history of DM2, bronchiectasis, atrial fibrillation, PE on Eliquis, HTN, HLD, history of Pseudomonas pneumonia presents for neutropenia and fevers. Patient follows with Dr. Orta with infectious disease and was recently on IV cefepime for Pseudomonas pneumonia. Has been off antibiotics for a week. Patient states over the weekend she developed fevers. She endorses a chronic cough. She denies any headache, URI symptoms, chest pain, shortness of breath, abdominal pain, nausea, vomiting, diarrhea, constipation, dysuria. She was sent in by her infectious disease doctor due to neutropenia. Review of systems: See HPI Medications: As listed on the chart Allergies: As listed on the chart PFSH: Per chart Vital signs: As listed on the chart. Reviewed. Physical exam: Gen: A&O x3, NAD Head: Normocephalic, atraumatic Eyes: No sclera icterus, conjunctiva clear, PERRL, EOMI ENT: TMs clear BL, moist mucous membranes, posterior oropharynx unremarkable, uvula midline Neck: Trachea midline, No JVD, Full ROM, No meningismus CV: RRR, no murmurs, minimal peripheral edema of the bilateral feet Resp: Lungs CTA BL, no w/r/c GI: Abd soft, non-distended, non-tender, no r/r/g Musc: Full ROM, no deformity Skin: Warm, dry, no rash Neuro: Alert, oriented, grossly intact, sensation intact Psych: Cooperative, appropriate mood and affect [facility] Medical History Pseudomonas pneumonia Asthma exacerbation in COPD Pneumonia Hypoxia Morbid obesity with BMI of 40.0-44.9, adult UTI (urinary tract infection) Necrosis Venous ulcer Essential hypertension Hyperlipidemia Asthma Iron deficiency anemia Vitamin D deficiency Chronic diastolic congestive heart failure Hypothyroidism Allergic rhinitis Gastroesophageal reflux disease History of COPD History of diabetes mellitus Atrial fibrillation Hypertension Easy bruising History of stress test History of echocardiogram Cardiology follow-up encounter Wears glasses Anxiety Diabetes Walker as ambulation aid History of renal disease Anemia Migraine headache Back pain Injury of back Shortness of breath on exertion History of edema Pain of left hip Bronchiectasis with (acute) exacerbation High cholesterol Hypothyroidism Kidney disease Former smoker Congestive heart failure (CHF) Hypertension Hypoxemia Bronchiectasis Pneumonia due to Pseudomonas Cough Palpitations Chronic diastolic heart failure GAGAN (obstructive sleep apnea) Septic shock 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 COPD with acute exacerbation Lung nodule Thrush, oral History of DVT (deep vein thrombosis) Abnormal chest CT Shortness of breath Cavitary lesion of lung Aspiration into airway Obesity Chronic respiratory failure Precordial chest pain Paroxysmal atrial tachycardia Right foot pain MRSA pneumonia Venous thromboembolism (VTE) Hyperlipidemia Diabetes mellitus HCAP (healthcare-associated pneumonia) Severe sepsis Coarse tremors Weakness Acute respiratory failure DVT (deep venous thrombosis) Pulmonary embolism Allergic rhinitis Insomnia Steroid myopathy Atrial fibrillation with rapid ventricular response Pneumonia ALEXYS (acute kidney injury) PVD (peripheral vascular disease) Atrial tachycardia Morbid obesity Acute bronchiolitis Tachycardia Hx pulmonary embolism Cellulitis of right lower extremity Umbilical hernia Gastroesophageal reflux disease COLD (chronic obstructive lung disease) Benign essential HTN Home Medications ?Medication ?Instructions ?Recorded ?Last Taken ?Type levothyroxine 25 mcg tablet 25 mcg PO DAILY@0600 thyroid 01/04/20 01/09/24 History cholecalciferol (vitamin D3) 50 50 mcg PO DAILY SUPPLEMENT 09/19/20 07/04/21 05:54 History mcg (2,000 unit) capsule furosemide 40 mg tablet (Lasix) 40 mg PO BID water pill 09/19/20 07/04/21 05:52 History esomeprazole magnesium 40 mg 40 mg PO DAILY reflux 10/13/20 01/09/24 History capsule,delayed release (Nexium) potassium chloride 20 mEq 20 meq PO BID supplement 10/13/20 01/09/24 History tablet,extended release(part/cryst) ferrous sulfate 325 mg (65 mg 325 mg PO DAILY anemia 06/26/21 01/09/24 History iron) tablet acetaminophen 500 mg tablet 1,000 mg (2 x 500 mg) PO Q8 PRN 07/14/21 01/09/24 Rx pain of temp > 101 #0 tabs albuterol sulfate 2.5 mg/3 mL 2.5 mg (3 mL) inhalation Q4H PRN 05/17/22 Unknown Rx (0.083 %) solution for nebulization breathing #180 vials ipratropium bromide 42 mcg (0.06 2 spray intranasal TID PRN DRY NOSE 03/10/23 Unknown History %) nasal spray latanoprost 0.005 % eye drops 1 drp ophthalmic (eye) QPM 01/25/24 Unknown History albuterol sulfate 90 mcg/actuation 2 puff inhalation Q4H PRN 09/14/23 Unknown Rx aerosol inhaler (Ventolin HFA) shortness of breath or wheezing #3 ea semaglutide (weight loss) 0.5 1 mg subcut QWEEK 09/28/23 Unknown History mg/0.5 mL subcutaneous pen injector montelukast 10 mg tablet 10 mg PO QHS asthma #90 tabs 11/29/23 Unknown Rx (Singulair) fluticasone propionate 230 2 puff inhalation BID lungs #3 ea 12/07/23 Unknown Rx mcg-salmeterol 21 mcg/actuation HFA inhaler (Advair HFA) apixaban 5 mg tablet (Eliquis) 5 mg PO BID anticoagulant #180 tabs 05/16/24 Unknown Rx diltiazem HCl 180 mg 180 mg PO DAILY heart #90 caps 05/16/24 Unknown Rx capsule,extended release 24 hr (Cardizem CD) rosuvastatin 5 mg tablet 5 mg PO QDAY #90 tabs 06/08/24 Unknown Rx ondansetron 4 mg disintegrating 4 mg PO Q6H PRN nausea and 09/06/24 Unknown Rx tablet vomiting #20 tabs calcitriol 0.25 mcg capsule 0.25 mcg PO DAILY 09/26/24 Unknown History Allergy/AdvReac Type Severity Reaction Status Date / Time chlorhexidine (From Allergy Severe Hives Verified 09/26/24 14:15 ChloraPrep Clear) isopropyl alcohol (From Allergy Severe Hives Verified 09/26/24 14:15 ChloraPrep Clear) adhesive Allergy SKIN Verified 09/26/24 14:15 TEARS. PAPER TAPE [place] azithromycin (From Zithromax) Allergy Rash Verified 09/26/24 14:15 cefuroxime sodium (From Allergy Rash Verified 09/26/24 14:15 Zinacef) clindamycin Allergy Hives Verified 09/26/24 14:15 Sulfa (Sulfonamide Allergy Rash Verified 09/26/24 14:15 Antibiotics) atenolol AdvReac Severe Peripheal Verified 09/26/24 14:15 edema & cough metoprolol (From Toprol XL) AdvReac Severe Peripheral Verified 09/26/24 14:15 edema & cough duloxetine (From Cymbalta) AdvReac Intermediate made me Verified 09/26/24 14:15 feel really sick nitrofurantoin AdvReac Mild unknown Verified 09/26/24 14:15 macrocrystalline (From Macrodantin) atorvastatin AdvReac Unknown myalgias Verified 09/26/24 14:15 gabapentin AdvReac Unknown Vision Verified 09/26/24 14:15 changes Corticosteroids AdvReac Other Verified 09/26/24 14:15 (Glucocorticoids) oxycodone HCl (From Percocet) AdvReac Vomiting Verified 09/26/24 14:15 Family History Mother Hypertension Diabetes Heart disease Pulmonary embolism Father Perforated ulcer Respiratory failure Sister Asthma Hypertension Surgical History History of total left hip replacement Status post total hip replacement, left Status post hip replacement S/P hip replacement Hx of vein stripping S/P hysterectomy History of appendectomy History of cardioversion (~12/2016) History of left heart catheterization H/O hernia repair H/O foot surgery H/O shoulder surgery H/O section H/O: hysterectomy Social History household members: none Smoking Status: Former smoker quit date: 02/14/75 pack-years: 3 second hand exposure: No alcohol intake: never substance use type: does not use caffeine: No what type of physical activity do you participate in: none EXAM Physical Exam Const Vital Signs: 09/26/24 10:42 09/26/24 10:43 09/26/24 11:43 Temperature 99 F 99 F 99.4 F H Temperature Source Oral Oral Oral Pulse Rate 99 99 78 Respiratory Rate 22 H 22 H 16 Respiratory Pattern Blood Pressure 153/90 H 153/90 H 141/80 H Blood Pressure Mean 111 111 100 Pulse Ox 100 100 99 Oxygen Delivery Method Room Air Room Air Room Air 09/26/24 12:00 09/26/24 12:49 09/26/24 13:00 Temperature 99.4 F H 99.4 F H Temperature Source Oral Oral Pulse Rate 89 104 H Respiratory Rate 16 25 H Respiratory Pattern Tachypnea Blood Pressure 141/80 H 129/78 H Blood Pressure Mean 100 95 Pulse Ox 97 99 Oxygen Delivery Method Room Air Room Air MDM MDM MDM Narrative Medical decision making narrative: 69-year-old female with history of DM2, bronchiectasis, atrial fibrillation, PE on Eliquis, HTN, HLD, history of Pseudomonas pneumonia presents for neutropenia and fevers. Patient follows with Dr. Orta with infectious disease and was recently on IV cefepime for Pseudomonas pneumonia. Has been off antibiotics for a week. Patient states over the weekend she developed fevers. She endorses a chronic cough. I received a phone call from Dr. Orta today who states that he was sending the patient to the emergency department for neutropenia workup and admission. States that the neutropenia may be secondary to cefepime. States that she will need to be seen by hematology. On presentation, patient no acute distress. She is afebrile. Infectious workup ordered. CBC with neutropenia. WBC 2.5 with absolute neutrophils of 0.4. This has improved with WBC of 2 and neutropenia of 0.1 on 09/24. Patient has stable anemia of 8.6. Platelets unremarkable. BMP shows baseline CKD. No transaminitis. UA negative for UTI. Chest x-ray bilateral atelectasis with chronic lung changes. No obvious pneumonia. Radiology in agreement. At this point in time, no clear etiology for patient's fevers. Currently afebrile. Patient will warrant admission for further workup and management. She confirmed understanding of plan. I spoke with Dr. Harden who accepted admission. EKG: Interpreted by me/EM physician: EKG shows normal sinus rhythm with PACs. Heart rate 92. Impression: 1. Neutropenia 2. Fevers Lab Data Labs: Laboratory Results - last 24 hr 09/26/24 09/26/24 09/26/24 11:41 12:30 12:42 WBC 2.5 L RBC 3.03 L Hgb 8.6 L Hct 28.3 L MCV 93.4 MCH 28.4 MCHC 30.4 L RDW Std Deviation 52.0 H RDW Coeff of Lanre 15.1 H Plt Count 238 MPV 10.9 Immature Gran % (Auto) 2.800 H Neut % (Auto) 17.9 L Lymph % (Auto) 55.7 H [place] % (Auto) 22.8 H Eos % (Auto) 0.0 Baso % (Auto) 0.8 Absolute Neuts (auto) 0.4 L Absolute Lymphs (auto) 1.37 Nucleated RBC % 0 Platelet Estimate ADEQUATE Sodium 139 Potassium 4.6 Chloride 107 Carbon Dioxide 18.5 L Anion Gap 14 BUN 26 H Creatinine 1.35 H Est GFR (MDRD) Non-Af 42 L BUN/Creatinine Ratio 19.0 Glucose 99 Lactic Acid < 1.0 Calcium 9.4 Total Bilirubin 0.28 AST 28 ALT 10 Alkaline Phosphatase 92 Total Protein 7.4 Albumin 2.7 L Globulin 4.8 H Albumin/Globulin Ratio 0.6 L Urine Color Urine Clarity Urine pH Ur Specific [place] Urine Protein Urine Glucose (UA) Urine Ketones Urine Occult Blood Urine Nitrite Urine Bilirubin Urine Urobilinogen Ur Leukocyte Esterase Urine RBC Urine WBC Ur Squamous Epith Cells Urine Bacteria Urine Mucus 09/26/24 13:13 WBC RBC Hgb Hct MCV MCH MCHC RDW Std Deviation RDW Coeff of Lanre Plt Count MPV Immature Gran % (Auto) Neut % (Auto) Lymph % (Auto) [place] % (Auto) Eos % (Auto) Baso % (Auto) Absolute Neuts (auto) Absolute Lymphs (auto) Nucleated RBC % Platelet Estimate Sodium Potassium Chloride Carbon Dioxide Anion Gap BUN Creatinine Est GFR (MDRD) Non-Af BUN/Creatinine Ratio Glucose Lactic Acid Calcium Total Bilirubin AST ALT Alkaline Phosphatase Total Protein Albumin Globulin Albumin/Globulin Ratio Urine Color Yellow Urine Clarity Clear Urine pH 6.0 Ur Specific [place] 1.010 Urine Protein 15 H Urine Glucose (UA) Normal Urine Ketones Negative Urine Occult Blood 10 H Urine Nitrite Negative Urine Bilirubin Negative Urine Urobilinogen Normal Ur Leukocyte Esterase Negative Urine RBC 0-5 SEEN Urine WBC 0 SEEN Ur Squamous Epith Cells 0-5 SEEN Urine Bacteria 0 SEEN Urine Mucus 0 SEEN Radiography Diagnostic Testing: Clinical Impression(s) from Imaging Studies Chest X-Ray 09/26/24 11:06 IMPRESSION: Mild bilateral lower lung areas of discoid atelectasis or scarring are seen. Chronic lung changes appear stable. Stable appears of the right mid to upper lung lateral nodule. No evidence of pulmonary edema. No focal infiltrate is seen. No pleural effusion or pneumothorax is noted. The cardiomediastinal silhouette is stable, without evidence of cardiomegaly. A partially calcified aorta is seen. [id number] degenerative changes of the visualized spine are seen. Partially visualized right shoulder prosthesis again noted. Reading Location: [address] Discharge Plan Triage Chief Complaint: Abn Labs ED Provider: John Martines Dx/Rx/DC Orders Prescriptions: No Action esomeprazole magnesium [Nexium] 40 mg capsule,delayed release(DR/EC) 40 mg PO DAILY potassium chloride 20 mEq tablet,ER particles/crystals 20 meq PO BID semaglutide (weight loss) 0.5 mg/0.5 mL pen injector 1 mg subcut QWEEK Rx Instructions: administer weeks 5 through 8 of therapy latanoprost 0.005 % drops 1 drp ophthalmic (eye) QPM Rx Instructions: BOTH EYES ipratropium bromide 42 mcg (0.06 %) spray,non-aerosol 2 spray intranasal TID PRN (Reason: DRY NOSE) Eliquis 5 mg tablet 5 mg PO BID Qty: 180 3RF diltiazem HCl [Cardizem CD] 180 mg capsule,extended release 24hr 180 mg PO DAILY Qty: 90 3RF Rx Instructions: Hold for heart less than 60 or systolic blood pressure less than 100 mmHg. levothyroxine 25 mcg tablet 25 mcg PO DAILY@0600 Patient Comments: thyroid furosemide [Lasix] 40 mg tablet 40 mg PO BID cholecalciferol (vitamin D3) 50 mcg (2,000 unit) Capsule 50 mcg PO DAILY ferrous sulfate 325 MG tablet 325 mg PO DAILY Rx Instructions: Take 1 hour before doxycycline or in empty stomach while patient is on doxycycline to avoid drug drug interaction. acetaminophen 500 mg tablet 1,000 mg PO Q8 PRN (Reason: pain of temp > 101) Qty: 0 0RF ondansetron 4 mg tablet,disintegrating 4 mg PO Q6H PRN (Reason: nausea and vomiting) Qty: 20 0RF albuterol sulfate 2.5 mg /3 mL (0.083 %) solution for nebulization 2.5 mg INHALATION Q4H PRN Qty: 180 6RF Rx Instructions: Use q4 hours and PRN for wheezing albuterol sulfate [Ventolin HFA] 90 mcg/actuation HFA aerosol inhaler 2 puff inhalation Q4H PRN (Reason: shortness of breath or wheezing) Qty: 3 3RF montelukast [Singulair] 10 mg tablet 10 mg PO QHS Qty: 90 3RF fluticasone propion-salmeterol [Advair HFA] 230-21 mcg/actuation HFA aerosol inhaler 2 puff INHALATION BID Qty: 3 3RF rosuvastatin 5 mg tablet 5 mg PO QDAY Qty: 90 3RF Primary Care Provider: Terry Donnelly Referrals: Terry Donnelly MD [Primary Care Provider] - Print Language: Moroccan
[2024-09-26 12:26] LABS: AST(SGOT) 28 U/L (<=31); Alanine Aminotransfer ALT/SGPT 10 U/L (<=34); Albumin, Serum 2.7 g/dL (3.4-4.8); Alkaline Phosphatase 92 U/L (35-104); Anion Gap 14 (5-15); BUN 26 mg/dL (4-19); BUN/Creat Ratio 19.0 RATIO (10-20); Carbon Dioxide 18.5 mmol/L (21.0-32.0); Chloride 107 mmol/L (98-108); Globulin 4.8 g/dL (2.2-4.2); Glucose 99 mg/dL (70-99); Potassium 4.6 mmol/L (3.3-5.1)
[2024-09-26 12:43] LABS: Calcium,Total 9.4 mg/dL (7.6-11.0)
[2024-09-26 12:44] LABS: Hematocrit 28.3 % (37-47); Hemoglobin 8.6 g/dL (12.0-15.0); Immature Granulocytes Count 0.070 X10^3/uL (0.0-0.0); Mean Corp Hgb Conc 30.4 g/dL (32-36); Mean Corpuscular Volume 93.4 fL (81-99); Mean Platelet Vol. 10.9 fl (6.2-12.0); NRBC Flagged by Analyzer 0 % (0-5); POSITIVE DIFFERENTIAL YES; Platelet Count 238 K/mm3 (150-450); RBC Distribution Width CV 15.1 % (11.6-14.6); RBC Distribution Width SD 52.0 fl (35.1-43.9); Red Blood Count 3.03 M/mm3 (4.2-5.4); White Blood Count 2.5 K/mm3 (4.4-11.0)
[2024-09-26 12:51] LABS: Differential Indicated SCAN CRITERIA MET
[2024-09-26 13:31] LABS: Mucous, Urine 0 SEEN /hpf (<or=2+)
[2024-09-26 13:33] LABS: Color, Urine Yellow (Yellow); Glucose, Dipstick Normal (Normal); Ketone-Dipstick Negative (Negative); Leukocyte Esterase-Dipstick Negative /ul (Negative); Nitrite-Dipstick Negative (Negative); Occult Blood-Urine 10 /ul (Negative); Protein-Dipstick 15 mg/dl (Negative); Specific Gravity, Urine 1.010 (1.002-1.030); Urine Bilirubin Dipstick Negative (Negative)
[2024-09-26 13:40] LABS: Squamous Epithelial Cells - UA 0-5 SEEN /hpf (5-10)
[2024-09-26 13:41] LABS: Red Blood Cells-Urine 0-5 SEEN /hpf (0-5)
--- NOTE | 2024-09-26 14:29 | CASEMGMT ---
Care Management Face to Face with patient for initial transition planning/care coordination assessment in the ED.? This rfp writer introduced self and role at [facility]. Patient alert and oriented. Patient willing to participate in assessment and is able to answer all questions appropriately.? Care providers, pharmacy, and demographics verified. Admitting Diagnosis: Neutropenia and fevers Other diagnosis history: ?DM2, bronchiectasis, afib, PE, HTN, HLD PCP: [facility] Specialists: ?[facility], Preferred Pharmacy: [facility] pharmacy Insurance: Medicare Prescription Benefit: yes Living Will/HPOA: Completed LNOK: ?Sister, Eloisa Casarez Living Arrangements: ?Lives with her disabled daughter, that she cares for, in a one story home.? Patient reports to being independent with ADLs and IADLs Transportation: patient DME: ?walker, cane, shower chair, pulse ox, BGM with supplies HHC: ?[facility] SNF/Rehab: ?[facility] Community Resources: none Behavioral Health History: anxiety Patient goals: Patient wishes to discharge home, denies need for home health care at this time. Patient denies any further needs or concerns at this time. Disposition Plan: admission to acute; RN CM/SW to follow for discharge planning needs that may arise. Barb Mercedes, UTILITY DIVISION PROJECT MANAGER, PHOTO OPTICS TECHNICIAN
--- NOTE | 2024-09-26 14:40 | PCM.HP.STD ---
HPI - General General Date of Admission: 09/26/24 Date of Service: 09/26/24 Chief Complaint: Intermittent fevers HPI Narrative LAURA SERRANO, is a 69-year-old female history of diabetes, bronchiectasis, A-fib, PE on Eliquis, hypertension, COPD, hypothyroidism presented to [facility] ED 09/26/24 for neutropenia and fevers. Patient follows with Dr. Orta with infectious disease and was recently started on IV cefepime for Pseudomonas pneumonia. She has since been off of the antibiotic however over the weekend developed fevers again and was found to have neutropenia so her infectious disease doctor sent her in for neutropenia workup and admission in addition to hematology consult. In the ED temp 99.4, heart rate of 99 with a blood pressure 153/98, respiratory rate 22 and pulse ox 100% on room air. CBC revealed white blood cell count of 2.5, hemoglobin 8.6, platelet count 238 and an ANC of 0.4. CMP revealed a slightly low bicarb of 18.5, BUN of 26 and a creatinine of 1.35. Liver function no acute abnormality. Chest x-ray with chronic changes as well as mild bilateral lower lung areas of discoid atelectasis or scarring. UA does not appear infectious. Lactic acid wnl. Patient given antibiotics and hospitalist contacted for admission. Patient seen at bedside. Patient reports she has been having problems since June with intermittent fatigue and fevers as well as joint pain everywhere. She reports she has been short of breath and fatigued when she is up moving around more so than usual and did have fevers and chills over the weekend with temp up to 101, has a chronic cough no feels like anything she has been coughing less after the antibiotics. She reports some nasal congestion and runny nose, occasionally gets headaches but not main complaint. Also reports intermittent petechial-like rash on limbs and abdomen and that she intermittently gets leg swelling left greater than right but reports she did have lower extremity duplex which ruled out DVT. FOR[facility]LY [facility] Medical History Pseudomonas pneumonia Asthma exacerbation in COPD Pneumonia Hypoxia Morbid obesity with BMI of 40.0-44.9, adult UTI (urinary tract infection) Necrosis Venous ulcer Essential hypertension Hyperlipidemia Asthma Iron deficiency anemia Vitamin D deficiency Chronic diastolic congestive heart failure Hypothyroidism Allergic rhinitis Gastroesophageal reflux disease History of COPD History of diabetes mellitus Atrial fibrillation Hypertension Easy bruising History of stress test History of echocardiogram Cardiology follow-up encounter Wears glasses Anxiety Diabetes Walker as ambulation aid History of renal disease Anemia Migraine headache Back pain Injury of back Shortness of breath on exertion History of edema Pain of left hip Bronchiectasis with (acute) exacerbation High cholesterol Hypothyroidism Kidney disease Former smoker Congestive heart failure (CHF) Hypertension Hypoxemia Bronchiectasis Pneumonia due to Pseudomonas Cough Palpitations Chronic diastolic heart failure GAGAN (obstructive sleep apnea) Septic shock 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 COPD with acute exacerbation Lung nodule Thrush, oral History of DVT (deep vein thrombosis) Abnormal chest CT Shortness of breath Cavitary lesion of lung Aspiration into airway Obesity Chronic respiratory failure Precordial chest pain Paroxysmal atrial tachycardia Right foot pain MRSA pneumonia Venous thromboembolism (VTE) Hyperlipidemia Diabetes mellitus HCAP (healthcare-associated pneumonia) Severe sepsis Coarse tremors Weakness Acute respiratory failure DVT (deep venous thrombosis) Pulmonary embolism Allergic rhinitis Insomnia Steroid myopathy Atrial fibrillation with rapid ventricular response Pneumonia ALEXYS (acute kidney injury) PVD (peripheral vascular disease) Atrial tachycardia Morbid obesity Acute bronchiolitis Tachycardia Hx pulmonary embolism Cellulitis of right lower extremity Umbilical hernia Gastroesophageal reflux disease COLD (chronic obstructive lung disease) Benign essential HTN Home Medications ?Medication ?Instructions ?Recorded ?Last Taken ?Type levothyroxine 25 mcg tablet 25 mcg PO DAILY@0600 thyroid 01/04/20 01/09/24 History cholecalciferol (vitamin D3) 50 50 mcg PO DAILY SUPPLEMENT 09/19/20 07/04/21 05:54 History mcg (2,000 unit) capsule furosemide 40 mg tablet (Lasix) 40 mg PO BID water pill 09/19/20 07/04/21 05:52 History esomeprazole magnesium 40 mg 40 mg PO DAILY reflux 10/13/20 01/09/24 History capsule,delayed release (Nexium) potassium chloride 20 mEq 20 meq PO BID supplement 10/13/20 01/09/24 History tablet,extended release(part/cryst) ferrous sulfate 325 mg (65 mg 325 mg PO DAILY anemia 06/26/21 01/09/24 History iron) tablet acetaminophen 500 mg tablet 1,000 mg (2 x 500 mg) PO Q8 PRN 07/14/21 01/09/24 Rx pain of temp > 101 #0 tabs albuterol sulfate 2.5 mg/3 mL 2.5 mg (3 mL) inhalation Q4H PRN 05/17/22 Unknown Rx (0.083 %) solution for nebulization breathing #180 vials ipratropium bromide 42 mcg (0.06 2 spray intranasal TID PRN DRY NOSE 03/10/23 Unknown History %) nasal spray latanoprost 0.005 % eye drops 1 drp ophthalmic (eye) QPM eye 03/10/23 Unknown History albuterol sulfate 90 mcg/actuation 2 puff inhalation Q4H PRN 09/14/23 Unknown Rx aerosol inhaler (Ventolin HFA) shortness of breath or wheezing #3 ea semaglutide (weight loss) 0.5 1 mg subcut QWEEK diabetic 09/28/23 09/26/24 History mg/0.5 mL subcutaneous pen injector montelukast 10 mg tablet 10 mg PO QHS asthma #90 tabs 11/29/23 Unknown Rx (Singulair) fluticasone propionate 230 2 puff inhalation BID lungs #3 ea 12/07/23 Unknown Rx mcg-salmeterol 21 mcg/actuation HFA inhaler (Advair HFA) apixaban 5 mg tablet (Eliquis) 5 mg PO BID anticoagulant #180 tabs 05/16/24 Unknown Rx diltiazem HCl 180 mg 180 mg PO DAILY heart #90 caps 05/16/24 Unknown Rx capsule,extended release 24 hr (Cardizem CD) rosuvastatin 5 mg tablet 5 mg PO QDAY cholesterol #90 tabs 06/08/24 Unknown Rx ondansetron 4 mg disintegrating 4 mg PO Q6H PRN nausea and 09/06/24 Unknown Rx tablet vomiting #20 tabs Probiotic probiotic 09/26/24 Unknown History calcitriol 0.25 mcg capsule 0.25 mcg PO DAILY 09/26/24 Unknown History calcium carbonate 600 mg PO DAILY unknown 09/26/24 Unknown History fluticasone propion-salmeterol inhalation lung 09/26/24 Unknown History ibuprofen 400 mg tablet (IBU) 400 mg PO Q8H PRN fever 09/26/24 Unknown History latanoprost 0.005 % eye drops 1 drp EACH EYE QPM eye drops 09/26/24 Unknown History (Xalatan) Allergy/AdvReac Type Severity Reaction Status Date / Time chlorhexidine (From Allergy Severe Hives Verified 09/26/24 14:15 ChloraPrep Clear) isopropyl alcohol (From Allergy Severe Hives Verified 09/26/24 14:15 ChloraPrep Clear) adhesive Allergy SKIN Verified 09/26/24 14:15 TEARS. PAPER TAPE OK azithromycin (From Zithromax) Allergy Rash Verified 09/26/24 14:15 cefuroxime sodium (From Allergy Rash Verified 09/26/24 14:15 Zinacef) clindamycin Allergy Hives Verified 09/26/24 14:15 Sulfa (Sulfonamide Allergy Rash Verified 09/26/24 14:15 Antibiotics) atenolol AdvReac Severe Peripheal Verified 09/26/24 14:15 edema & cough metoprolol (From Toprol XL) AdvReac Severe Peripheral Verified 09/26/24 14:15 edema & cough duloxetine (From Cymbalta) AdvReac Intermediate made me Verified 09/26/24 14:15 feel really sick nitrofurantoin AdvReac Mild unknown Verified 09/26/24 14:15 macrocrystalline (From Macrodantin) atorvastatin AdvReac Unknown myalgias Verified 09/26/24 14:15 gabapentin AdvReac Unknown Vision Verified 09/26/24 14:15 changes Corticosteroids AdvReac Other Verified 09/26/24 14:15 (Glucocorticoids) oxycodone HCl (From Percocet) AdvReac Vomiting Verified 09/26/24 14:15 Family History Mother Hypertension Diabetes Heart disease Pulmonary embolism Father Perforated ulcer Respiratory failure Sister Asthma Hypertension Surgical History History of total left hip replacement Status post total hip replacement, left Status post hip replacement S/P hip replacement Hx of vein stripping S/P hysterectomy History of appendectomy History of cardioversion (~12/2016) History of left heart catheterization H/O hernia repair H/O foot surgery H/O shoulder surgery H/O section H/O: hysterectomy Social History household members: none Smoking Status: Former smoker quit date: 02/14/75 pack-years: 3 second hand exposure: No alcohol intake: never substance use type: does not use caffeine: No what type of physical activity do you participate in: none ROS ROS Narrative General: Fevers and chills over the weekend HENT: Some intermittent nasal congestion and headache occasionally denies sore throat EYES: Denies changes in vision Resp: Chronic cough possibly less unusual, does have more shortness of breath than usual especially on exertion Cardiac: Denies chest pain GI: Denies abdominal pain, has had a little bit of constipation since being on semaglutide, denies nausea/vomiting : Denies changes in urination Extremity: Gets swelling in her legs left greater than right MSK: Feels somewhat generally weak and fatigued Neuro: Denies any numbness/tingling Heme: Denies any bleeding Skin: Reports occasional petechial rash especially in limbs and sometimes on trunk but not at present Psychiatric: No complaints voiced Vital Signs Vital Signs Vital Signs: 09/26/24 10:42 09/26/24 10:43 09/26/24 11:43 Temperature 99 F 99 F 99.4 F H Temperature Source Oral Oral Oral Pulse Rate 99 99 78 Respiratory Rate 22 H 22 H 16 Respiratory Pattern Blood Pressure 153/90 H 153/90 H 141/80 H Blood Pressure Mean 111 111 100 Pulse Ox 100 100 99 Oxygen Delivery Method Room Air Room Air Room Air 09/26/24 12:00 09/26/24 12:49 09/26/24 13:00 Temperature 99.4 F H 99.4 F H Temperature Source Oral Oral Pulse Rate 89 104 H Respiratory Rate 16 25 H Respiratory Pattern Tachypnea Blood Pressure 141/80 H 129/78 H Blood Pressure Mean 100 95 Pulse Ox 97 99 Oxygen Delivery Method Room Air Room Air Weight Weight: 85.3 kg Body Mass Index (BMI) 35.5 Physical Exam Narrative General: Alert, oriented, no apparent distress HEENT: Atraumatic, normocephalic Eyes: Anicteric, normal conjunctiva, extraocular movements grossly intact Neck: Supple Respiratory: Somewhat diminished at the bases, normal respiratory effort Cardiovascular: Regular rate and rhythm GI: Soft, nontender, nondistended Extremities: Mild edema of lower extremities Musculoskeletal: Moving all extremities Neuro: No overt focal neurological deficits Skin: Has some changes in both lower extremities with right lower a little bit red and left lower foot purpleish color Psych: Cooperative Results Lab / Micro Data 09/26/24 12:30 09/26/24 11:41 Labs: Laboratory Results - last 24 hr 09/26/24 11:41: Sodium 139, Potassium 4.6, Chloride 107, Carbon Dioxide 18.5 L, Anion Gap 14, BUN 26 H, Creatinine 1.35 H, Est GFR (MDRD) Non-Af 42 L, BUN/Creatinine Ratio 19.0, Glucose 99, Calcium 9.4, Total Bilirubin 0.28, AST 28, ALT 10, Alkaline Phosphatase 92, Total Protein 7.4, Albumin 2.7 L, Globulin 4.8 H, Albumin/Globulin Ratio 0.6 L 09/26/24 12:30: WBC 2.5 L, RBC 3.03 L, Hgb 8.6 L, Hct 28.3 L, MCV 93.4, MCH 28.4, MCHC 30.4 L, RDW Std Deviation 52.0 H, RDW Coeff of Lanre 15.1 H, Plt Count 238, MPV 10.9, Immature Gran % (Auto) 2.800 H, Neut % (Auto) 17.9 L, Lymph % (Auto) 55.7 H, Catron % (Auto) 22.8 H, Eos % (Auto) 0.0, Baso % (Auto) 0.8, Absolute Neuts (auto) 0.4 L, Absolute Lymphs (auto) 1.37, Nucleated RBC % 0, Platelet Estimate ADEQUATE 09/26/24 12:42: Lactic Acid < 1.0 09/26/24 13:13: Urine Color Yellow, Urine Clarity Clear, Urine pH 6.0, Ur Specific Portis 1.010, Urine Protein 15 H, Urine Glucose (UA) Normal, Urine Ketones Negative, Urine Occult Blood 10 H, Urine Nitrite Negative, Urine Bilirubin Negative, Urine Urobilinogen Normal, Ur Leukocyte Esterase Negative, Urine RBC 0-5 SEEN, Urine WBC 0 SEEN, Ur Squamous Epith Cells 0-5 SEEN, Urine Bacteria 0 SEEN, Urine Mucus 0 SEEN Imaging Radiology Impression Chest X-Ray 09/26/24 11:06 IMPRESSION: Mild bilateral lower lung areas of discoid atelectasis or scarring are seen. Chronic lung changes appear stable. Stable appears of the right mid to upper lung lateral nodule. No evidence of pulmonary edema. No focal infiltrate is seen. No pleural effusion or pneumothorax is noted. The cardiomediastinal silhouette is stable, without evidence of cardiomegaly. A partially calcified aorta is seen. Jrey-iu-lyensosc degenerative changes of the visualized spine are seen. Partially visualized right shoulder prosthesis again noted. Reading Location: [id number] Assessment & Plan Assessment/Plan (1) Fever of unknown origin: (2) Neutropenia: PLAN: Plan # Fever of unknown origin - Chest x-ray no acute process - UA not suggestive of infection -Discussed with ID - Will obtain CT of the chest/abdomen/pelvis - Will place patient on vancomycin and Merrem - Blood culture sent - Sputum culture if able - Will obtain respiratory viral panels - Will check ESR, CRP, Pro-Shan and trend - Given patient's joint pain and rash with intermittent fevers we will also check felix, ccp, rf - ID consult # New onset neutropenia - Patient's infectious disease doctor requested hematology consult given new onset -Certainly possible that it was cefepime induced however cannot say definitively at this time - Hematology consulted #GAGAN -Continue home NIPPV if applicable - Appears patient does wear CPAP at home #Hx COPD -Continue home inhalers -Incentive spirometer #Paroxysmal Atrial Fibrillation -Rate control: Diltiazem -Anticoagulation: Eliquis # History of PE - On Eliquis #Hypothyroidism -Continue Synthroid #Type 2 diabetes mellitus -Glucose checks and sliding scale insulin #GERD -Continue PPI #DVT ppx: Not indicated, patient already chronically on full dose anticoagulation with Eliquis Valerie Harden MD Charges/Coding Visit Charges Inpatient E&M: 68016 Init Hosp L2
[2024-09-26] MEDS: Meropenem 1 GM in 0.9% Normal Saline (100mL MB+) 100 ML IV ×2 (15:02→21:32)
--- NOTE | 2024-09-26 15:23 | CT_ITS ---
PROCEDURE: CT CHEST, ABD, PEL W/CONTRAST 09/26/2024 REASON FOR EXAM: IV CONTRAST, SCAN FOR FEVER OF UNKNOWN ORIGIN TECHNIQUE: Chest, abdomen and pelvis CT with intravenous contrast. Coronal and Sagittal reconstruction series were provided. One or more dose reduction techniques were used (e.g., Automated exposure control, adjustment of the mA and/or kV according to patient size, use of iterative reconstruction technique. PATIENT PREPARATION: Per protocol CONTRAST: 100 cc of Isovue 370 intravenous contrast. RADIATION DOSE SUMMARY: CTDlvol: 65 mGy DLP: 1885 mGycm COMPARISON: Chest x-ray 09/26/2024, CT chest 09/06/2024 FINDINGS: CT CHEST: Hardware: None. Lymph nodes: No enlarged mediastinal, hilar, or axillary lymph nodes. Heart and Vasculature: Not enlarged. No pericardial effusion. Atherosclerotic calcifications of the thoracic aorta. Pulmonary arteries are unremarkable. Lungs and Airways: Stable partially calcified right upper lobe pulmonary nodule measuring 1.2 x 1.5 cm. Additional stable left upper lobe pulmonary nodule measuring 0.5 cm. Bibasilar dependent atelectasis and parenchymal scarring. Airways are patent. Pleura: No pneumothorax or pleural effusion. Bones: Degenerative changes of the thoracic spine. Right shoulder arthroplasty. No acute fractures. CT ABDOMEN/PELVIS: Liver: Diffuse fatty infiltration. No obvious hepatic mass. Gallbladder: Unremarkable. No biliary ductal dilatation. Spleen: Normal size. Pancreas: Normal size without evidence of mass surrounding inflammation or ductal dilation. Adrenals: Unremarkable. Kidneys: Normal renal sizes. No hydronephrosis. Bladder: Unremarkable. Reproductive Organs: Prior hysterectomy. Adnexal regions are unremarkable. Bowel: Colonic stool burden suggesting constipation. No bowel obstruction. No inflammatory changes. Appendix: The appendix is not identified. There is no inflammatory process identified in the right lower quadrant to suggest appendicitis. Lymph nodes: Unremarkable. Vasculature: Moderate atherosclerotic calcifications of the abdominal aorta and its branches. No aneurysm. Peritoneum / Retroperitoneum: No free fluid or air. Bones: Degenerative changes of the spine. Moderate S-shaped scoliosis of the thoracolumbar spine. No acute fractures. Left hip arthroplasty. CT/CT Chest, Abd, Pel w/Contrast IMPRESSION: 1. No acute findings in the chest, abdomen or pelvis. 2. Stable bilateral pulmonary nodules as described above. 3. Bibasilar dependent atelectasis and parenchymal lung scarring. 4. Colonic stool burden suggesting constipation. Reading [facility]
[2024-09-26] MEDS: Vancomycin HCl 2,000 MG in 0.9% Normal Saline (500mL Bag) 500 ML 250 MG IV (15:49)
--- NOTE | 2024-09-26 16:01 | ONC.CONSULT ---
Assessment & Plan Assessment/Plan (1) Neutropenia: Status: Acute Code(s): D70.9 - Neutropenia, unspecified Qualifiers: Neutropenia type: unspecified Qualified Code(s): D70.9 - Neutropenia, unspecified Plan: Acute neutropenia (between September 14 and September 20, 2024) in the course of (but did not proceed) if febrile illness, acute on chronic left leg cellulitis and an episode of Pseudomonas pneumonia treated with oral doxycycline, IV cefepime and aerosolized tobramycin in September 2024. The patient has a chronic normocytic anemia consistent with anemia of chronic disease and chronic renal insufficiency with worsening during her acute illness. Recent blood work shows no evidence of deficiencies of iron or B12 and no evidence for an M protein. Patient's past medical history is notable for chronic lung disease, bronchiectasis, recurrent bacterial infections, recurrent cellulitis of the lower extremities,Steroid-induced diabetes, atrial fibrillation, history of pulmonary embolism, hypertension, hypothyroidism on replacement. Recent CT chest abdomen and pelvis in August 2024 were essentially unremarkable with no acute findings and chronic stable bilateral pulmonary nodules. From the hematology aspect of the patient's illness she has an acute neutropenia in the course of an acute febrile illness consistent with acute bone marrow suppression from infection and/or antimicrobials. There is no evidence to suggest an underlying primary bone marrow disease and therefore there is no indication for further workup with a bone marrow biopsy from the hematology aspect. Recommendations of treatment of any acute illness and modification of antimicrobials will be deferred to the primary service. Will sign off the case and please call if there are new developments. (2) Fever of unknown origin: Status: Acute Code(s): R50.9 - Fever, unspecified HPI Consult Data Date of Service:: 09/26/24 PCP / Referring Provider: Dr. Terry Donnelly MD Attending: Dr. Valerie Harden MD Chief Complaint Chief Complaint: Fever and low blood counts History of Present Illness History of Present Illness: 69-year-old female admitted with a febrile illness with a recent diagnosis of recurrent cellulitis of the lower extremity and Pseudomonas pneumonia treated in September 2024 with oral doxycycline, IV cefepime and nebulized tobramycin. Patient was noted to have developed an acute leukopenia and neutropenia on top of a chronic anemia. See represented lab results below Laboratory Results 09/26/24 09/24/24 09/20/24 12:30 11:30 09:45 WBC 2.5 L 2.0 L 2.5 L Hgb 8.6 L 9.7 L 11.1 L Plt Count 238 Absolute Neuts (auto) 0.4 L 0.1 L 09/14/24 09/10/24 03/08/24 09:53 13:51 11:39 WBC 6.0 Hgb 9.2 L 10.5 L 10.3 L Plt Count 393 Absolute Neuts (auto) 2.8 6.8 02/23/24 08/04/23 05/08/22 11:54 01:22 13:50 WBC Hgb 11.8 L 11.9 L Plt Count Absolute Neuts (auto) 5.3 Advanced Directives Do you have a Healthcare Power of Icebox Worker?: Yes [facility] Medical History Pseudomonas pneumonia Asthma exacerbation in COPD Pneumonia Hypoxia Morbid obesity with BMI of 40.0-44.9, adult UTI (urinary tract infection) Necrosis Venous ulcer Essential hypertension Hyperlipidemia Asthma Iron deficiency anemia Vitamin D deficiency Chronic diastolic congestive heart failure Hypothyroidism Allergic rhinitis Gastroesophageal reflux disease History of COPD History of diabetes mellitus Atrial fibrillation Hypertension Easy bruising History of stress test History of echocardiogram Cardiology follow-up encounter Wears glasses Anxiety Diabetes Walker as ambulation aid History of renal disease Anemia Migraine headache Back pain Injury of back Shortness of breath on exertion History of edema Pain of left hip Bronchiectasis with (acute) exacerbation High cholesterol Hypothyroidism Kidney disease Former smoker Congestive heart failure (CHF) Hypertension Hypoxemia Bronchiectasis Pneumonia due to Pseudomonas Cough Palpitations Chronic diastolic heart failure GAGAN (obstructive sleep apnea) Septic shock 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 COPD with acute exacerbation Lung nodule Thrush, oral History of DVT (deep vein thrombosis) Abnormal chest CT Shortness of breath Cavitary lesion of lung Aspiration into airway Obesity Chronic respiratory failure Precordial chest pain Paroxysmal atrial tachycardia Right foot pain MRSA pneumonia Venous thromboembolism (VTE) Hyperlipidemia Diabetes mellitus HCAP (healthcare-associated pneumonia) Severe sepsis Coarse tremors Weakness Acute respiratory failure DVT (deep venous thrombosis) Pulmonary embolism Allergic rhinitis Insomnia Steroid myopathy Atrial fibrillation with rapid ventricular response Pneumonia ALEXYS (acute kidney injury) PVD (peripheral vascular disease) Atrial tachycardia Morbid obesity Acute bronchiolitis Tachycardia Hx pulmonary embolism Cellulitis of right lower extremity Umbilical hernia Gastroesophageal reflux disease COLD (chronic obstructive lung disease) Benign essential HTN Home Medications ?Medication ?Instructions ?Recorded ?Last Taken ?Type levothyroxine 25 mcg tablet 25 mcg PO DAILY@0600 thyroid 01/04/20 01/09/24 History cholecalciferol (vitamin D3) 50 50 mcg PO DAILY SUPPLEMENT 09/19/20 07/04/21 05:54 History mcg (2,000 unit) capsule furosemide 40 mg tablet (Lasix) 40 mg PO BID water pill 09/19/20 07/04/21 05:52 History esomeprazole magnesium 40 mg 40 mg PO DAILY reflux 10/13/20 01/09/24 History capsule,delayed release (Nexium) potassium chloride 20 mEq 20 meq PO BID supplement 10/13/20 01/09/24 History tablet,extended release(part/cryst) ferrous sulfate 325 mg (65 mg 325 mg PO DAILY anemia 06/26/21 01/09/24 History iron) tablet acetaminophen 500 mg tablet 1,000 mg (2 x 500 mg) PO Q8 PRN 07/14/21 01/09/24 Rx pain of temp > 101 #0 tabs albuterol sulfate 2.5 mg/3 mL 2.5 mg (3 mL) inhalation Q4H PRN 05/17/22 Unknown Rx (0.083 %) solution for nebulization breathing #180 vials ipratropium bromide 42 mcg (0.06 2 spray intranasal TID PRN DRY NOSE 03/10/23 Unknown History %) nasal spray latanoprost 0.005 % eye drops 1 drp ophthalmic (eye) QPM eye 03/10/23 Unknown History albuterol sulfate 90 mcg/actuation 2 puff inhalation Q4H PRN 09/14/23 Unknown Rx aerosol inhaler (Ventolin HFA) shortness of breath or wheezing #3 ea semaglutide (weight loss) 0.5 1 mg subcut QWEEK diabetic 09/28/23 09/26/24 History mg/0.5 mL subcutaneous pen injector montelukast 10 mg tablet 10 mg PO QHS asthma #90 tabs 11/29/23 Unknown Rx (Singulair) fluticasone propionate 230 2 puff inhalation BID lungs #3 ea 12/07/23 Unknown Rx mcg-salmeterol 21 mcg/actuation HFA inhaler (Advair HFA) apixaban 5 mg tablet (Eliquis) 5 mg PO BID anticoagulant #180 tabs 04/02/25 Unknown Rx diltiazem HCl 180 mg 180 mg PO DAILY heart #90 caps 05/16/24 Unknown Rx capsule,extended release 24 hr (Cardizem CD) rosuvastatin 5 mg tablet 5 mg PO QDAY cholesterol #90 tabs 06/08/24 Unknown Rx ondansetron 4 mg disintegrating 4 mg PO Q6H PRN nausea and 09/06/24 Unknown Rx tablet vomiting #20 tabs Probiotic probiotic 09/26/24 Unknown History calcitriol 0.25 mcg capsule 0.25 mcg PO DAILY 09/26/24 Unknown History calcium carbonate 600 mg PO DAILY unknown 09/26/24 Unknown History fluticasone propion-salmeterol inhalation lung 09/26/24 Unknown History ibuprofen 400 mg tablet (IBU) 400 mg PO Q8H PRN fever 09/26/24 Unknown History latanoprost 0.005 % eye drops 1 drp EACH EYE QPM eye drops 09/26/24 Unknown History (Xalatan) Allergy/AdvReac Type Severity Reaction Status Date / Time chlorhexidine (From Allergy Severe Hives Verified 09/26/24 14:15 ChloraPrep Clear) isopropyl alcohol (From Allergy Severe Hives Verified 09/26/24 14:15 ChloraPrep Clear) adhesive Allergy SKIN Verified 09/26/24 14:15 TEARS. PAPER TAPE OK azithromycin (From Zithromax) Allergy Rash Verified 09/26/24 14:15 cefuroxime sodium (From Allergy Rash Verified 09/26/24 14:15 Zinacef) clindamycin Allergy Hives Verified 09/26/24 14:15 Sulfa (Sulfonamide Allergy Rash Verified 09/26/24 14:15 Antibiotics) atenolol AdvReac Severe Peripheal Verified 09/26/24 14:15 edema & cough metoprolol (From Toprol XL) AdvReac Severe Peripheral Verified 09/26/24 14:15 edema & cough duloxetine (From Cymbalta) AdvReac Intermediate made me Verified 09/26/24 14:15 feel really sick nitrofurantoin AdvReac Mild unknown Verified 09/26/24 14:15 macrocrystalline (From Macrodantin) atorvastatin AdvReac Unknown myalgias Verified 09/26/24 14:15 gabapentin AdvReac Unknown Vision Verified 09/26/24 14:15 changes Corticosteroids AdvReac Other Verified 09/26/24 14:15 (Glucocorticoids) oxycodone HCl (From Percocet) AdvReac Vomiting Verified 09/26/24 14:15 Family History Mother Hypertension Diabetes Heart disease Pulmonary embolism Father Perforated ulcer Respiratory failure Sister Asthma Hypertension Surgical History History of total left hip replacement Status post total hip replacement, left Status post hip replacement S/P hip replacement Hx of vein stripping S/P hysterectomy History of appendectomy History of cardioversion (~12/2016) History of left heart catheterization H/O hernia repair H/O foot surgery H/O shoulder surgery H/O section H/O: hysterectomy Social History household members: none Smoking Status: Former smoker quit date: 02/14/75 pack-years: 3 second hand exposure: No alcohol intake: never substance use type: does not use caffeine: No what type of physical activity do you participate in: none ROS Constitutional Constitutional: Reports chills, fever(s), night sweats and other Details: Recurrent bouts of fevers chills and occasional sweats ; Denies weight loss ENT HEENT: Denies dysphagia or hoarseness Cardiovascular Cardiovascular: Reports dyspnea on exertion; Denies chest pain Respiratory/Chest Respiratory/Chest: Reports cough, dyspnea on exertion, hemoptysis and other Details: Occasional minor hemoptysis ; Denies breast mass Gastrointestinal Gastrointestinal: Denies change in bowel habits, diarrhea, hematochezia or melena Genitourinary Genitourinary: Reports change in urinary stream; Denies dysuria Musculoskeletal Musculoskeletal: Reports joint pain Integumentary Integumentary: Reports other Details: Chronic skin changes over the lower extremities due to history of recurrent cellulitis ; Denies new lesions Neurologic Neurologic: Denies focal weakness or headache(s) Hematologic/Lymphatic Hematologic/Lymphatic: Denies lymphadenopathy Physical Exam Const alert and oriented x3 General Appearance: ill appearing Positive for chronically Nutritional Appearance: obese HEENT normocephalic Eyes no scleral icterus Neck no lymphadenopathy and no JVD Lymph Lymphatic: no lymphadenopathy noted Resp clear to auscultation bilaterally Auscultation: diminished lung sounds bilateral and diffuse Cardio regular rate and regular rhythm GI soft to palpation and non-tender Extremity Extremity Narrative: Chronic lower extremities trophic skin changes consistent with chronic vascular insufficiency and bouts of recurrent cellulitis Skin no wounds Neuro CN's II-XII intact bilaterally, moves all extremities and no focal motor deficits Psych mental status grossly normal and cooperative Vital Signs Temperature 99.4 F H 09/26/24 14:41 Temperature Source Oral 09/26/24 14:00 Pulse Rate 97 09/26/24 14:41 Respiratory Rate 12 09/26/24 14:41 Respiratory Pattern Tachypnea 09/26/24 12:49 Blood Pressure 132/101 H 09/26/24 14:41 Blood Pressure Mean 111 09/26/24 14:41 Pulse Ox 95 09/26/24 14:41 Oxygen Delivery Method Room Air 09/26/24 14:00 Laboratory Results - last 24 hr 09/26/24 11:41: Sodium 139, Potassium 4.6, Chloride 107, Carbon Dioxide 18.5 L, Anion Gap 14, BUN 26 H, Creatinine 1.35 H, Est GFR (MDRD) Non-Af 42 L, BUN/Creatinine Ratio 19.0, Glucose 99, Calcium 9.4, Total Bilirubin 0.28, AST 28, ALT 10, Alkaline Phosphatase 92, Total Protein 7.4, Albumin 2.7 L, Globulin 4.8 H, Albumin/Globulin Ratio 0.6 L 09/26/24 12:30: WBC 2.5 L, RBC 3.03 L, Hgb 8.6 L, Hct 28.3 L, MCV 93.4, MCH 28.4, MCHC 30.4 L, RDW Std Deviation 52.0 H, RDW Coeff of Lanre 15.1 H, Plt Count 238, MPV 10.9, Immature Gran % (Auto) 2.800 H, Neut % (Auto) 17.9 L, Lymph % (Auto) 55.7 H, [place] % (Auto) 22.8 H, Eos % (Auto) 0.0, Baso % (Auto) 0.8, Absolute Neuts (auto) 0.4 L, Absolute Lymphs (auto) 1.37, Nucleated RBC % 0, Platelet Estimate ADEQUATE 09/26/24 12:42: Lactic Acid < 1.0 09/26/24 13:13: Urine Color Yellow, Urine Clarity Clear, Urine pH 6.0, Ur Specific [place] 1.010, Urine Protein 15 H, Urine Glucose (UA) Normal, Urine Ketones Negative, Urine Occult Blood 10 H, Urine Nitrite Negative, Urine Bilirubin Negative, Urine Urobilinogen Normal, Ur Leukocyte Esterase Negative, Urine RBC 0-5 SEEN, Urine WBC 0 SEEN, Ur Squamous Epith Cells 0-5 SEEN, Urine Bacteria 0 SEEN, Urine Mucus 0 SEEN Microbiology 09/26/24 11:35 Mucosa - Nose Respiratory Panel (PCR) - Final Diagnostic Data Chest X-Ray 09/26/24 11:06 IMPRESSION: Mild bilateral lower lung areas of discoid atelectasis or scarring are seen. Chronic lung changes appear stable. Stable appears of the right mid to upper lung lateral nodule. No evidence of pulmonary edema. No focal infiltrate is seen. No pleural effusion or pneumothorax is noted. The cardiomediastinal silhouette is stable, without evidence of cardiomegaly. A partially calcified aorta is seen. [id number] degenerative changes of the visualized spine are seen. Partially visualized right shoulder prosthesis again noted. Reading Location: [id number] [place] [address] Imaging Services [address] [place], [place] [address] CT Chest, Abd, Pel w/Contrast MR#: [id number] Acct: [id number] Name: LAURA SERRANO Rep #: [id number] : 1955 F 69 From: Ingrid Posada MD PCP: Dr. Terry Donnelly MD Status: [facility] ER Study: CT Chest, Abd, Pel w/Contrast Date of Exam: 09/06/24 Exam# [id number] Ordering Dr: Genevieve Bailey DO PROCEDURE: CT CHEST, ABD, PEL W/CONTRAST 09/06/2024 REASON FOR EXAM: FEVER, VOMITING, COUGH TECHNIQUE: Chest, abdomen and pelvis CT with intravenous contrast. Coronal and Sagittal reconstruction series were provided. One or more dose reduction techniques were used (e.g., Automated exposure control, adjustment of the mA and/or kV according to patient size, use of iterative reconstruction technique. PATIENT PREPARATION: Per protocol ORAL CONTRAST TYPE: None. CONTRAST: Isovue 370 VOLUME: 100mL RADIATION DOSE SUMMARY: DLP: 1900 mGycm COMPARISON: CT chest 08/04/23. FINDINGS: CT CHEST: Hardware: None. Lymph nodes: No left axillary, mediastinal or hilar lymphadenopathy. Visualization of the right axilla is limited by streak artifact. Heart and Vasculature: The heart is normal in size without pericardial effusion. The great vessels are normal in caliber. Moderate coronary artery and mild thoracic aortic calcifications. Lungs and Airways: Visualization is significantly limited by motion artifact. The central airways are grossly patent. Stable partially calcified right upper lobe pulmonary nodule, unchanged over numerous examinations. Additional staple left upper lobe pulmonary nodules (for example series 2, images 32 and 47). Bibasilar atelectasis/scarring. No pleural effusion or pneumothorax. Bones: Thoracic spondylosis. Prior right shoulder arthroplasty. CT ABDOMEN/PELVIS: Liver: The liver is normal in size without suspicious hepatic mass. The major portal veins are patent. No biliary ductal dilation. Gallbladder: Mild layering sludge within the gallbladder. Spleen: Normal-size. Pancreas: Grossly unremarkable. Adrenals: No adrenal mass. Kidneys: No hydronephrosis or nephrolithiasis. Bladder: Minimally distended and unremarkable. Reproductive Organs: Prior hysterectomy. Bowel: The bowel loops are nondilated. No ascites or free air. No inflammatory mass in the expected region of the appendix. Lymph nodes: No suspicious lymphadenopathy. Vasculature: Severe plaque of the aortoiliac vessels. Bones: Lumbar spondylosis with mild leftward curvature of the upper lumbar spine. Prior left total hip arthroplasty. CT/CT Chest, Abd, Pel w/Contrast IMPRESSION: CT chest: 1. No acute thoracic finding given limitations. 2. Stable bilateral pulmonary nodules, unchanged over several years. CT abdomen/pelvis: No acute abdominopelvic finding. Reading Location: [id number] CC: Dr. Terry Donnelly MD; Dr. Genevieve Bailey DO ~ [employer]: Signed
--- NOTE | 2024-09-26 16:14 | PCM.RX.CS ---
Consult Antibiotic Management Pharmacy has been consulted to manage selected antibiotic: Vancomycin Type of Intervention Type of Consult: New start Suspected Infection Suspected Infection: Other Labs Labs: Sodium 139 mmol/L (133-145) 09/26/24 11:41 Potassium 4.6 mmol/L (3.3-5.1) 09/26/24 11:41 Chloride 107 mmol/L (98-108) 09/26/24 11:41 Carbon Dioxide 18.5 mmol/L (21.0-32.0) L 09/26/24 11:41 Anion Gap 14 (5-15) 09/26/24 11:41 BUN 26 mg/dL (4-19) H 09/26/24 11:41 Creatinine 1.35 mg/dL (0.70-1.20) H 09/26/24 11:41 Est GFR (MDRD) Non-Af 42 (>60) L 09/26/24 11:41 BUN/Creatinine Ratio 19.0 RATIO (10-20) 09/26/24 11:41 Glucose 99 mg/dL (70-99) 09/26/24 11:41 Microbiology Microbiology: Microbiology 09/26/24 11:35 Mucosa - Nose Respiratory Panel (PCR) - Final Goal Trough Goal Trough: 15-20 mcg/mL Pharmacy Plan for Drug Dosing Pharmacy Plan for Drug Dosing: NEW START IV VANCOMYCIN Consulting Physician: Dr. Harden Indication: fever of unknown origin, neutropenia Goal Trough: 15-20 SrCr: 1.35 CrCl: 38 mL/min Comments: patient had initial 2000mg IV x1 dose in ED 09/26/24 @1549 Vancomycin Dose: 1250mg IV Q24hr to start 09/27/24 @1600 Pending Level: 09/28/24 @1530, prior to 3rd total dose per protocol Pharmacy Service will continue to monitor and adjust dosing as required.
[2024-09-26] MEDS: Potassium Chloride Oral Tablet 20 MEQ PO (18:41)
[2024-09-26] MEDS: Albuterol 2.5 MG/3 ML VIAL.NEB. INHALATION (18:52)
[2024-09-26] MEDS: Budesonide Respules 0.5 MG/2 ML AMPUL.NEB. INHALATION (18:53)
[2024-09-26 19:31] LABS: CRP 65.80 mg/L (0.0-3.0); Procalcitonin 0.11 ng/mL (<=0.10)
[2024-09-26] MEDS: Lactobacillis Acidophilus 1 CAP PO (21:31)
[2024-09-26] MEDS: APIXABAN 5 MG TABLET PO (21:31)
[2024-09-26] MEDS: Latanoprost 0.005% 1 Bottle 1 DRP EACH EYE (21:33)
[2024-09-26] MEDS: 0.9% Saline Lock 10 ML Syringe IV (21:34)
[2024-09-27] VITALS (10 sets, daily range): BP systolic 110–116; BP diastolic 55–70; PULSE 84–97; RESP 16–18; TEMP 36.8–37.1; O2SAT 95–99
[2024-09-27 05:59] LABS: Hematocrit 31.0 % (37-47); Hemoglobin 9.5 g/dL (12.0-15.0); Immature Granulocytes Count 0.090 X10^3/uL (0.0-0.0); Mean Corp Hgb Conc 30.6 g/dL (32-36); Mean Corpuscular Volume 92.8 fL (81-99); Mean Platelet Vol. 10.9 fl (6.2-12.0); NRBC Flagged by Analyzer 0 % (0-5); Platelet Count 287 K/mm3 (150-450); RBC Distribution Width CV 15.5 % (11.6-14.6); RBC Distribution Width SD 52.4 fl (35.1-43.9); Red Blood Count 3.34 M/mm3 (4.2-5.4); White Blood Count 2.9 K/mm3 (4.4-11.0)
[2024-09-27 06:25] LABS: CRP 42.50 mg/L (0.0-3.0); Procalcitonin 0.10 ng/mL (<=0.10)
[2024-09-27 06:40] LABS: AST(SGOT) 22 U/L (<=31); Alanine Aminotransfer ALT/SGPT 13 U/L (<=34); Albumin, Serum 2.9 g/dL (3.4-4.8); Alkaline Phosphatase 91 U/L (35-104); Anion Gap 12 (5-15); BUN 15 mg/dL (4-19); BUN/Creat Ratio 15.0 RATIO (10-20); Calcium,Total 9.1 mg/dL (7.6-11.0); Carbon Dioxide 24.5 mmol/L (21.0-32.0); Chloride 106 mmol/L (98-108); Estimated Creatinine Clearance 49.75 ml/min (50-250); Globulin 4.2 g/dL (2.2-4.2); Glucose 94 mg/dL (70-99); Potassium 5.1 mmol/L (3.3-5.1)
[2024-09-27] MEDS: Albuterol 2.5 MG/3 ML VIAL.NEB. INHALATION ×3 (06:50→19:13)
[2024-09-27] MEDS: Budesonide Respules 0.5 MG/2 ML AMPUL.NEB. INHALATION ×2 (06:51→19:14)
[2024-09-27] MEDS: Potassium Chloride Oral Tablet 20 MEQ PO ×2 (08:04→17:14)
[2024-09-27] MEDS: Lactobacillis Acidophilus 1 CAP PO ×2 (08:04→21:50)
[2024-09-27] MEDS: APIXABAN 5 MG TABLET PO ×2 (08:05→21:50)
[2024-09-27] MEDS: Meropenem 1 GM in 0.9% Normal Saline (100mL MB+) 100 ML IV ×2 (08:07→21:51)
--- NOTE | 2024-09-27 09:08 | PN.HOSP_ITS ---
Subjective Subjective Doing well, feels little bit better. Lab work is all improved from yesterday but still no definitive source is why she is continuing to have recurrent fevers. Evaluated by hematology, neutropenia not felt to be due to bone marrow suppression. CT of the chest abdomen pelvis does not demonstrate any lymphadenopathy Objective Data Objective Data Vital Signs: Vital Signs Temp Pulse Resp BP Pulse Ox O2 Del Method 98.2 F 97 17 116/60 95 Room Air 09/27/24 09:01 09/27/24 09:01 09/27/24 09:01 09/27/24 09:01 09/27/24 09:02 09/27/24 09:02 Oxygen Delivery Method Room Air Weight: 180 lb 5.41 oz Body Mass Index (BMI) 34.0 Intake & Output: Intake and Output for Last 24 Hours 09/26/24 09/27/24 09/28/24 03:59 03:59 03:59 Intake Total 1840 / 1840 150 / 150 Balance 1840 / 1840 150 / 150 Lab / Micro Data 09/27/24 05:20 09/27/24 05:20 Labs: Laboratory Results - last 24 hr 09/26/24 11:41: Sodium 139, Potassium 4.6, Chloride 107, Carbon Dioxide 18.5 L, Anion Gap 14, BUN 26 H, Creatinine 1.35 H, Est GFR (MDRD) Non-Af 42 L, BUN/Creatinine Ratio 19.0, Glucose 99, Calcium 9.4, Total Bilirubin 0.28, AST 28, ALT 10, Alkaline Phosphatase 92, C-React Prot Ext Range 65.80 H, Total Protein 7.4, Albumin 2.7 L, Globulin 4.8 H, Albumin/Globulin Ratio 0.6 L, Procalcitonin 0.11, Rheumatoid Factor < 10.0 09/26/24 12:30: WBC 2.5 L, RBC 3.03 L, Hgb 8.6 L, Hct 28.3 L, MCV 93.4, MCH 28.4, MCHC 30.4 L, RDW Std Deviation 52.0 H, RDW Coeff of Lanre 15.1 H, Plt Count 238, MPV 10.9, Immature Gran % (Auto) 2.800 H, Neut % (Auto) 17.9 L, Lymph % (Auto) 55.7 H, [place] % (Auto) 22.8 H, Eos % (Auto) 0.0, Baso % (Auto) 0.8, A bsolute Neuts (auto) 0.4 L, Absolute Lymphs (auto) 1.37, Nucleated RBC % 0, Platelet Estimate ADEQUATE, ESR 41 H 09/26/24 12:42: Lactic Acid < 1.0 09/26/24 13:13: Urine Color Yellow, Urine Clarity Clear, Urine pH 6.0, Ur Specific [place] 1.010, Urine Protein 15 H, Urine Glucose (UA) Normal, Urine Ketones Negative, Urine Occult Blood 10 H, Urine Nitrite Negative, Urine Bilirubin Negative, Urine Urobilinogen Normal, Ur Leukocyte Esterase Negative, Urine RBC 0-5 SEEN, Urine WBC 0 SEEN, Ur Squamous Epith Cells 0-5 SEEN, Urine Bacteria 0 SEEN, Urine Mucus 0 SEEN 09/26/24 16:16: DORETHA-1 Antibody TNP, Sm (Dinero) Antibody TNP, FACILITY TECHNICIAN Antibody TNP, Scl-70 Scleroderma Ab TNP, Antichromatin Antibodies TNP, Centromere B Antibody TNP 09/27/24 05:20: WBC 2.9 L, RBC 3.34 L, Hgb 9.5 L, Hct 31.0 L, MCV 92.8, MCH 28.4, MCHC 30.6 L, RDW Std Deviation 52.4 H, RDW Coeff of Lanre 15.5 H, Plt Count 287, MPV 10.9, Immature Gran % (Auto) 3.100 H, Neut % (Auto) 35.1 L, Lymph % (Auto) 42.0 H, [place] % (Auto) 18.8 H, Eos % (Auto) 0.0, Baso % (Auto) 1.0, A bsolute Neuts (auto) 1.0 L, Absolute Lymphs (auto) 1.23, Nucleated RBC % 0, ESR 28, Sodium 142, Potassium 5.1, Chloride 106, Carbon Dioxide 24.5, Anion Gap 12, BUN 15, Creatinine 1.02, Estim Creat Clear Calc 49.75 L, Est GFR (MDRD) Non-Af 59 L, BUN/Creatinine Ratio 15.0, Glucose 94, Calcium 9.1, Total Bilirubin 0.21, AST 22, ALT 13, Alkaline Phosphatase 91, C-React Prot Ext Range 42.50 H, Total Protein 7.1, Albumin 2.9 L, Globulin 4.2, Albumin/Globulin Ratio 0.7 L, Procalcitonin 0.10, TSH 2.710 Micro: Microbiology 09/26/24 16:53 Mucosa - Nose Streptococcus pyogenes (PCR) - Final 09/26/24 16:53 Mucosa - Nose SARS-CoV-2, Influenza & RSV (PCR) - Final 09/26/24 11:35 Mucosa - Nose Respiratory Panel (PCR) - Final Radiography Diagnostic Testing: Radiology Impression Chest X-Ray 09/26/24 11:06 IMPRESSION: Mild bilateral lower lung areas of discoid atelectasis or scarring are seen. Chronic lung changes appear stable. Stable appears of the right mid to upper lung lateral nodule. No evidence of pulmonary edema. No focal infiltrate is seen. No pleural effusion or pneumothorax is noted. The cardiomediastinal silhouette is stable, without evidence of cardiomegaly. A partially calcified aorta is seen. [id number] degenerative changes of the visualized spine are seen. Partially visualized right shoulder prosthesis again noted. Reading Location: [address] Chest/Abdomen/Pelvis CT 09/26/24 15:23 IMPRESSION: 1. No acute findings in the chest, abdomen or pelvis. 2. Stable bilateral pulmonary nodules as described above. 3. Bibasilar dependent atelectasis and parenchymal lung scarring. 4. Colonic stool burden suggesting constipation. Reading Location: [facility] Physical Exam Narrative General: Alert, Oriented x3, Cooperative, No apparent distress HEENT: Atraumatic, PERRLA, EOMI, Normocephalic Oral: Moist Mucosa Neck: Supple, No JVD Lungs: Diminished, Normal air movement, No rhonchi, No wheeze, No rales Cardiovascular: Regular rate, Regular Rhythm, Normal S1, Normal S2, No murmurs Abdomen: Soft, Non Tender, Non-Distended, No Hepato-splenomegaly Extremities: Trace edema, Capillary Refill Less than 3 Seconds Skin: Bilateral lower extremity rash, she states she has intermittent petechial rashes Musculoskeletal: No Tenderness to Palpation of Joints or Extremities Neurological: No focal neurological deficits, Motor Exam 5/5 strength throughout, Sensory exam intact to light touch and pain Psych/Mental Status: Normal Affect, Appropriate Assessment & Plan Assessment/Plan (1) Fever of unknown origin: (2) Neutropenia: QUALIFIERS: Neutropenia type: unspecified Qualified Code(s): D 70.9 - Neutropenia, unspecified PLAN: Plan 1. Fever of unknown origin with new onset neutropenia ? CT of the chest abdomen pelvis is unremarkable, she has stable nodules in her lungs with no lymphadenopathy ? Continue with broad-spectrum antibiotics per ID ? Hematology does not feel that the neutropenia has anything to do with marrow suppression and potentially infectious related versus antibiotic related ? She denies any possible exposure to tickborne illnesses, she does not go outside frequently and does not have any pets that could potentially bring it take into the home though it may be beneficial at some point to test for Lyme disease if that this has not been done in the past ? 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 Inflammatory markers and neutropenia have improved today 2. Essential HTN/HLD/paroxysmal A-fib ? Continue with her home blood pressure medications ? Continue with Eliquis ? Will monitor make adjustments as necessary ? Continue with Crestor 3. DM2 ? Continue with sliding scale insulin ? Accu-Cheks ACHS ? Will monitor make adjustments as necessary 4. Hypothyroidism ? Stable ? Continue with Synthroid 5. GERD ? Stable ? Continue with PPI 6. GAGAN/COPD ? Not in exacerbation ? Continue with her home medications DVT: Eliquis Charges/Coding Visit Charges Inpatient E&M: 30470 Subs Hosp L2
--- NOTE | 2024-09-27 10:52 | PCM.CONS.GEN ---
Assessment & Plan Assessment/Plan (1) Neutropenic fever: PLAN: May have been caused by recent course of cefepime. Line was removed as an outpt. ANC now 1000 this AM, so she is recovering. Infectious workup neg so far. Chest relatively clear on CT. Concern for possible L knee septic arthritis given pain, swelling, warmth; may not show all the typical signs given her immunocompromised state. Will consult ortho for eval. Cont empiric vanc/yesenia for now. Will follow, thank you, spoke with ED and admitting physician yesterday HPI Consult Data Date of Consult: 09/27/24 HPI Narrative Reason for Consultation: neutropenic fever HPI Narrative: LAURA SERRANO, is a 69 F with h/o bronchiectasis, afib, PE, recurrent pseudomonas pneumonia, presented 09/26/24 to ED with several days fever, chills, not feeling well. Reports sx started in June, had been having increased L knee pain, had injection done at ortho office. After that had two weeks of fever, not feeling well. Saw PCP and pulm Dr. Ambrocio. Had picc placed, given 8 or 9 days iv cefepime which finished 09/14 along with inhaled tobramycin and po doxy. Line was removed. Didn't feel that much better with abx. Knee still sore, still tired/weak, still some cough and dyspena. Labs 09/24 showed neutropenia, she was referred back to ID, and was sent to ED for neutropenic fever. Now on vanc/yesenia, feeling a little better today. No sick contacts, no oral lesions, no dysuria. Some nausea. Full ROS performed and neg except as noted above. [facility] Medical History Pseudomonas pneumonia Asthma exacerbation in COPD Pneumonia Hypoxia Morbid obesity with BMI of 40.0-44.9, adult UTI (urinary tract infection) Necrosis Venous ulcer Essential hypertension Hyperlipidemia Asthma Iron deficiency anemia Vitamin D deficiency Chronic diastolic congestive heart failure Hypothyroidism Allergic rhinitis Gastroesophageal reflux disease History of COPD History of diabetes mellitus Atrial fibrillation Hypertension Easy bruising History of stress test History of echocardiogram Cardiology follow-up encounter Wears glasses Anxiety Diabetes Walker as ambulation aid History of renal disease Anemia Migraine headache Back pain Injury of back Shortness of breath on exertion History of edema Pain of left hip Bronchiectasis with (acute) exacerbation High cholesterol Hypothyroidism Kidney disease Former smoker Congestive heart failure (CHF) Hypertension Hypoxemia Bronchiectasis Pneumonia due to Pseudomonas Cough Palpitations Chronic diastolic heart failure GAGAN (obstructive sleep apnea) Septic shock 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 COPD with acute exacerbation Lung nodule Thrush, oral History of DVT (deep vein thrombosis) Abnormal chest CT Shortness of breath Cavitary lesion of lung Aspiration into airway Obesity Chronic respiratory failure Precordial chest pain Paroxysmal atrial tachycardia Right foot pain MRSA pneumonia Venous thromboembolism (VTE) Hyperlipidemia Diabetes mellitus HCAP (healthcare-associated pneumonia) Severe sepsis Coarse tremors Weakness Acute respiratory failure DVT (deep venous thrombosis) Pulmonary embolism Allergic rhinitis Insomnia Steroid myopathy Atrial fibrillation with rapid ventricular response Pneumonia ALEXYS (acute kidney injury) PVD (peripheral vascular disease) Atrial tachycardia Morbid obesity Acute bronchiolitis Tachycardia Hx pulmonary embolism Cellulitis of right lower extremity Umbilical hernia Gastroesophageal reflux disease COLD (chronic obstructive lung disease) Benign essential HTN Home Medications ?Medication ?Instructions ?Recorded ?Last Taken ?Type levothyroxine 25 mcg tablet 25 mcg PO DAILY@0600 thyroid 01/04/20 01/09/24 History cholecalciferol (vitamin D3) 50 50 mcg PO DAILY SUPPLEMENT 09/19/20 07/04/21 05:54 History mcg (2,000 unit) capsule furosemide 40 mg tablet (Lasix) 40 mg PO BID water pill 09/19/20 07/04/21 05:52 History esomeprazole magnesium 40 mg 40 mg PO DAILY reflux 10/13/20 01/09/24 History capsule,delayed release (Nexium) potassium chloride 20 mEq 20 meq PO BID supplement 10/13/20 01/09/24 History tablet,extended release(part/cryst) ferrous sulfate 325 mg (65 mg 325 mg PO DAILY anemia 06/26/21 01/09/24 History iron) tablet acetaminophen 500 mg tablet 1,000 mg (2 x 500 mg) PO Q8 PRN 07/14/21 01/09/24 Rx pain of temp > 101 #0 tabs albuterol sulfate 2.5 mg/3 mL 2.5 mg (3 mL) inhalation Q4H PRN 05/17/22 Unknown Rx (0.083 %) solution for nebulization breathing #180 vials ipratropium bromide 42 mcg (0.06 2 spray intranasal TID PRN DRY NOSE 03/10/23 Unknown History %) nasal spray latanoprost 0.005 % eye drops 1 drp ophthalmic (eye) QPM eye 03/10/23 Unknown History albuterol sulfate 90 mcg/actuation 2 puff inhalation Q4H PRN 09/14/23 Unknown Rx aerosol inhaler (Ventolin HFA) shortness of breath or wheezing #3 ea semaglutide (weight loss) 0.5 1 mg subcut QWEEK diabetic 09/28/23 09/26/24 History mg/0.5 mL subcutaneous pen injector montelukast 10 mg tablet 10 mg PO QHS asthma #90 tabs 11/29/23 Unknown Rx (Singulair) fluticasone propionate 230 2 puff inhalation BID lungs #3 ea 12/07/23 Unknown Rx mcg-salmeterol 21 mcg/actuation HFA inhaler (Advair HFA) apixaban 5 mg tablet (Eliquis) 5 mg PO BID anticoagulant #180 tabs 05/16/24 Unknown Rx diltiazem HCl 180 mg 180 mg PO DAILY heart #90 caps 05/16/24 Unknown Rx capsule,extended release 24 hr (Cardizem CD) rosuvastatin 5 mg tablet 5 mg PO QDAY cholesterol #90 tabs 06/08/24 Unknown Rx ondansetron 4 mg disintegrating 4 mg PO Q6H PRN nausea and 09/06/24 Unknown Rx tablet vomiting #20 tabs Probiotic probiotic 09/26/24 Unknown History calcitriol 0.25 mcg capsule 0.25 mcg PO DAILY 09/26/24 Unknown History calcium carbonate 600 mg PO DAILY unknown 09/26/24 Unknown History fluticasone propion-salmeterol inhalation lung 09/26/24 Unknown History ibuprofen 400 mg tablet (IBU) 400 mg PO Q8H PRN fever 09/26/24 Unknown History latanoprost 0.005 % eye drops 1 drp EACH EYE QPM eye drops 09/26/24 Unknown History (Xalatan) Allergy/AdvReac Type Severity Reaction Status Date / Time chlorhexidine (From Allergy Severe Hives Verified 09/26/24 14:15 ChloraPrep Clear) isopropyl alcohol (From Allergy Severe Hives Verified 09/26/24 14:15 ChloraPrep Clear) adhesive Allergy SKIN Verified 09/26/24 14:15 TEARS. PAPER TAPE [place] azithromycin (From Zithromax) Allergy Rash Verified 09/26/24 14:15 cefuroxime sodium (From Allergy Rash Verified 09/26/24 14:15 Zinacef) clindamycin Allergy Hives Verified 09/26/24 14:15 Sulfa (Sulfonamide Allergy Rash Verified 09/26/24 14:15 Antibiotics) atenolol AdvReac Severe Peripheal Verified 09/26/24 14:15 edema & cough metoprolol (From Toprol XL) AdvReac Severe Peripheral Verified 09/26/24 14:15 edema & cough duloxetine (From Cymbalta) AdvReac Intermediate made me Verified 09/26/24 14:15 feel really sick nitrofurantoin AdvReac Mild unknown Verified 09/26/24 14:15 macrocrystalline (From Macrodantin) atorvastatin AdvReac Unknown myalgias Verified 09/26/24 14:15 gabapentin AdvReac Unknown Vision Verified 09/26/24 14:15 changes Corticosteroids AdvReac Other Verified 09/26/24 14:15 (Glucocorticoids) oxycodone HCl (From Percocet) AdvReac Vomiting Verified 09/26/24 14:15 Family History Mother Hypertension Diabetes Heart disease Pulmonary embolism Father Perforated ulcer Respiratory failure Sister Asthma Hypertension Surgical History History of total left hip replacement Status post total hip replacement, left Status post hip replacement S/P hip replacement Hx of vein stripping S/P hysterectomy History of appendectomy History of cardioversion (~12/2016) History of left heart catheterization H/O hernia repair H/O foot surgery H/O shoulder surgery H/O section H/O: hysterectomy Social History household members: none Smoking Status: Former smoker quit date: 02/14/75 pack-years: 3 second hand exposure: No alcohol intake: never substance use type: does not use caffeine: No what type of physical activity do you participate in: none Physical Exam Const alert, oriented x3 and no apparent distress General Appearance: cooperative HEENT normocephalic and head/scalp atraumatic Eyes PERRL and EOMs intact bilaterally Neck supple and No nodes Resp Auscultation: wheezes and diminished lung sounds Cardio regular rate and regular rhythm GI soft to palpation, non-tender and non-distended Extremity Extremity Narrative: L knee with warmth, tenderness, swelling General Extremity: Negative for edema Skin no rashes or lesions noted Neuro CN's II-XII intact bilaterally Lab / Micro Data Attestation: I reviewed the patient's lab results. 09/27/24 05:20 09/27/24 05:20 Labs: Laboratory Results - last 24 hr 09/26/24 11:41: Sodium 139, Potassium 4.6, Chloride 107, Carbon Dioxide 18.5 L, Anion Gap 14, BUN 26 H, Creatinine 1.35 H, Est GFR (MDRD) Non-Af 42 L, BUN/Creatinine Ratio 19.0, Glucose 99, Calcium 9.4, Total Bilirubin 0.28, AST 28, ALT 10, Alkaline Phosphatase 92, C-React Prot Ext Range 65.80 H, Total Protein 7.4, Albumin 2.7 L, Globulin 4.8 H, Albumin/Globulin Ratio 0.6 L, Procalcitonin 0.11, Rheumatoid Factor < 10.0 09/26/24 12:30: WBC 2.5 L, RBC 3.03 L, Hgb 8.6 L, Hct 28.3 L, MCV 93.4, MCH 28.4, MCHC 30.4 L, RDW Std Deviation 52.0 H, RDW Coeff of Lanre 15.1 H, Plt Count 238, MPV 10.9, Immature Gran % (Auto) 2.800 H, Neut % (Auto) 17.9 L, Lymph % (Auto) 55.7 H, [place] % (Auto) 22.8 H, Eos % (Auto) 0.0, Baso % (Auto) 0.8, Absolute Neuts (auto) 0.4 L, Absolute Lymphs (auto) 1.37, Nucleated RBC % 0, Platelet Estimate ADEQUATE, ESR 41 H 09/26/24 12:42: Lactic Acid < 1.0 09/26/24 13:13: Urine Color Yellow, Urine Clarity Clear, Urine pH 6.0, Ur Specific [place] 1.010, Urine Protein 15 H, Urine Glucose (UA) Normal, Urine Ketones Negative, Urine Occult Blood 10 H, Urine Nitrite Negative, Urine Bilirubin Negative, Urine Urobilinogen Normal, Ur Leukocyte Esterase Negative, Urine RBC 0-5 SEEN, Urine WBC 0 SEEN, Ur Squamous Epith Cells 0-5 SEEN, Urine Bacteria 0 SEEN, Urine Mucus 0 SEEN 09/26/24 16:16: DORETHA-1 Antibody TNP, Sm (Dinero) Antibody TNP, PRODUCTION OPERATIONS INSPECTOR Antibody TNP, Scl-70 Scleroderma Ab TNP, Antichromatin Antibodies TNP, Centromere B Antibody TNP 09/27/24 05:20: WBC 2.9 L, RBC 3.34 L, Hgb 9.5 L, Hct 31.0 L, MCV 92.8, MCH 28.4, MCHC 30.6 L, RDW Std Deviation 52.4 H, RDW Coeff of Lanre 15.5 H, Plt Count 287, MPV 10.9, Immature Gran % (Auto) 3.100 H, Neut % (Auto) 35.1 L, Lymph % (Auto) 42.0 H, [place] % (Auto) 18.8 H, Eos % (Auto) 0.0, Baso % (Auto) 1.0, Absolute Neuts (auto) 1.0 L, Absolute Lymphs (auto) 1.23, Nucleated RBC % 0, ESR 28, Sodium 142, Potassium 5.1, Chloride 106, Carbon Dioxide 24.5, Anion Gap 12, BUN 15, Creatinine 1.02, Estim Creat Clear Calc 49.75 L, Est GFR (MDRD) Non-Af 59 L, BUN/Creatinine Ratio 15.0, Glucose 94, Calcium 9.1, Total Bilirubin 0.21, AST 22, ALT 13, Alkaline Phosphatase 91, C-React Prot Ext Range 42.50 H, Total Protein 7.1, Albumin 2.9 L, Globulin 4.2, Albumin/Globulin Ratio 0.7 L, Procalcitonin 0.10, TSH 2.710 Micro: Microbiology 09/26/24 16:53 Mucosa - Nose Streptococcus pyogenes (PCR) - Final 09/26/24 16:53 Mucosa - Nose SARS-CoV-2, Influenza & RSV (PCR) - Final 09/26/24 11:35 Mucosa - Nose Respiratory Panel (PCR) - Final Imaging Radiology Impression Chest X-Ray 09/26/24 11:06 IMPRESSION: Mild bilateral lower lung areas of discoid atelectasis or scarring are seen. Chronic lung changes appear stable. Stable appears of the right mid to upper lung lateral nodule. No evidence of pulmonary edema. No focal infiltrate is seen. No pleural effusion or pneumothorax is noted. The cardiomediastinal silhouette is stable, without evidence of cardiomegaly. A partially calcified aorta is seen. [id number] degenerative changes of the visualized spine are seen. Partially visualized right shoulder prosthesis again noted. Reading Location: [address] Chest/Abdomen/Pelvis CT 09/26/24 15:23 IMPRESSION: 1. No acute findings in the chest, abdomen or pelvis. 2. Stable bilateral pulmonary nodules as described above. 3. Bibasilar dependent atelectasis and parenchymal lung scarring. 4. Colonic stool burden suggesting constipation. Reading [facility]
--- NOTE | 2024-09-27 14:26 | RAD_ITS ---
PROCEDURE: KNEE 1 OR 2 VIEWS 09/27/2024 REASON FOR EXAM: LLE KNEE PAIN. 2 VIEWS PLEASE TECHNIQUE: KNEE 1 OR 2 VIEWS Laterality: Left COMPARISON: X-ray knee joint 11/29/2019 FINDINGS: Bones: Diffuse osteopenia of visualized bones. These findings are more prominent along lateral femoral condyle. No evidence of any displaced acute fracture deformity. Joints: Severe degenerative changes, more prominent along medial compartment. Effusion: Small joint effusion. Soft tissues: Soft tissue swelling overlying the joint. Other: Vascular calcifications. RAD/Knee 1 or 2 Views IMPRESSION: DEGENERATIVE OSTEOARTHROSIS. NO ACUTE FINDINGS. Reading Location: [id number]
[2024-09-27] MEDS: Vancomycin HCl 1,250 MG in 0.9% Normal Saline (250mL Bag) 250 ML 167 MG IV (14:57)
--- NOTE | 2024-09-27 15:13 | CONS.ORTHO ---
HPI Consult Data Date of Consult: 09/27/24 HPI Narrative Reason for Consultation: Left knee pain HPI Narrative: LAURA SERRANO, is a 69 F who presents today with left knee pain. Patient has had chronic left knee pain. She was seen in June at our office diagnosed with left knee osteoarthritis and a corticosteroid injection was given. Patient notes has been using a walker for significant amount of time. She received only about 2 weeks relief from the corticosteroid injection. Pain returned. She knows because of her health she is a poor operative candidate and did not return to the office. She has been following with infectious disease and was recently treated for Pseudomonas. She was admitted to the hospital for neutropenic fever.Patient is currently on meropenem and vancomycin. She was noted to have left knee pain and swelling. She has been up walking with physical therapy and bearing weight on the left knee. Infectious ease felt potentially knee could be a source of infectious etiology. She does report that she has had some increase in pain. Patient notes the pain is 8 out of 10 with ambulation. Worse with start up. Painful at night. Mostly classic arthritis type symptoms. She also reports progressive loss of range of motion. Most notably however she does report over the last couple of days she appears to be having a marked increase in her pain. [facility] Medical History Pseudomonas pneumonia Asthma exacerbation in COPD Pneumonia Hypoxia Morbid obesity with BMI of 40.0-44.9, adult UTI (urinary tract infection) Necrosis Venous ulcer Essential hypertension Hyperlipidemia Asthma Iron deficiency anemia Vitamin D deficiency Chronic diastolic congestive heart failure Hypothyroidism Allergic rhinitis Gastroesophageal reflux disease History of COPD History of diabetes mellitus Atrial fibrillation Hypertension Easy bruising History of stress test History of echocardiogram Cardiology follow-up encounter Wears glasses Anxiety Diabetes Walker as ambulation aid History of renal disease Anemia Migraine headache Back pain Injury of back Shortness of breath on exertion History of edema Pain of left hip Bronchiectasis with (acute) exacerbation High cholesterol Hypothyroidism Kidney disease Former smoker Congestive heart failure (CHF) Hypertension Hypoxemia Bronchiectasis Pneumonia due to Pseudomonas Cough Palpitations Chronic diastolic heart failure GAGAN (obstructive sleep apnea) Septic shock 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 COPD with acute exacerbation Lung nodule Thrush, oral History of DVT (deep vein thrombosis) Abnormal chest CT Shortness of breath Cavitary lesion of lung Aspiration into airway Obesity Chronic respiratory failure Precordial chest pain Paroxysmal atrial tachycardia Right foot pain MRSA pneumonia Venous thromboembolism (VTE) Hyperlipidemia Diabetes mellitus HCAP (healthcare-associated pneumonia) Severe sepsis Coarse tremors Weakness Acute respiratory failure DVT (deep venous thrombosis) Pulmonary embolism Allergic rhinitis Insomnia Steroid myopathy Atrial fibrillation with rapid ventricular response Pneumonia ALEXYS (acute kidney injury) PVD (peripheral vascular disease) Atrial tachycardia Morbid obesity Acute bronchiolitis Tachycardia Hx pulmonary embolism Cellulitis of right lower extremity Umbilical hernia Gastroesophageal reflux disease COLD (chronic obstructive lung disease) Benign essential HTN Home Medications ?Medication ?Instructions ?Recorded ?Last Taken ?Type levothyroxine 25 mcg tablet 25 mcg PO DAILY@0600 thyroid 01/04/20 01/09/24 History cholecalciferol (vitamin D3) 50 50 mcg PO DAILY SUPPLEMENT 09/19/20 07/04/21 05:54 History mcg (2,000 unit) capsule furosemide 40 mg tablet (Lasix) 40 mg PO BID water pill 09/19/20 07/04/21 05:52 History esomeprazole magnesium 40 mg 40 mg PO DAILY reflux 10/13/20 01/09/24 History capsule,delayed release (Nexium) potassium chloride 20 mEq 20 meq PO BID supplement 10/13/20 01/09/24 History tablet,extended release(part/cryst) ferrous sulfate 325 mg (65 mg 325 mg PO DAILY anemia 06/26/21 01/09/24 History iron) tablet acetaminophen 500 mg tablet 1,000 mg (2 x 500 mg) PO Q8 PRN 07/14/21 01/09/24 Rx pain of temp > 101 #0 tabs albuterol sulfate 2.5 mg/3 mL 2.5 mg (3 mL) inhalation Q4H PRN 05/17/22 Unknown Rx (0.083 %) solution for nebulization breathing #180 vials ipratropium bromide 42 mcg (0.06 2 spray intranasal TID PRN DRY NOSE 03/10/23 Unknown History %) nasal spray latanoprost 0.005 % eye drops 1 drp ophthalmic (eye) QPM eye 03/10/23 Unknown History albuterol sulfate 90 mcg/actuation 2 puff inhalation Q4H PRN 09/14/23 Unknown Rx aerosol inhaler (Ventolin HFA) shortness of breath or wheezing #3 ea semaglutide (weight loss) 0.5 1 mg subcut QWEEK diabetic 09/28/23 09/26/24 History mg/0.5 mL subcutaneous pen injector montelukast 10 mg tablet 10 mg PO QHS asthma #90 tabs 11/29/23 Unknown Rx (Singulair) fluticasone propionate 230 2 puff inhalation BID lungs #3 ea 12/07/23 Unknown Rx mcg-salmeterol 21 mcg/actuation HFA inhaler (Advair HFA) apixaban 5 mg tablet (Eliquis) 5 mg PO BID anticoagulant #180 tabs 05/16/24 Unknown Rx diltiazem HCl 180 mg 180 mg PO DAILY heart #90 caps 05/16/24 Unknown Rx capsule,extended release 24 hr (Cardizem CD) rosuvastatin 5 mg tablet 5 mg PO QDAY cholesterol #90 tabs 06/08/24 Unknown Rx ondansetron 4 mg disintegrating 4 mg PO Q6H PRN nausea and 09/06/24 Unknown Rx tablet vomiting #20 tabs Probiotic probiotic 09/26/24 Unknown History calcitriol 0.25 mcg capsule 0.25 mcg PO DAILY 09/26/24 Unknown History calcium carbonate 600 mg PO DAILY unknown 09/26/24 Unknown History fluticasone propion-salmeterol inhalation lung 09/26/24 Unknown History ibuprofen 400 mg tablet (IBU) 400 mg PO Q8H PRN fever 09/26/24 Unknown History latanoprost 0.005 % eye drops 1 drp EACH EYE QPM eye drops 09/26/24 Unknown History (Xalatan) Allergy/AdvReac Type Severity Reaction Status Date / Time chlorhexidine (From Allergy Severe Hives Verified 09/26/24 14:15 ChloraPrep Clear) isopropyl alcohol (From Allergy Severe Hives Verified 09/26/24 14:15 ChloraPrep Clear) adhesive Allergy SKIN Verified 09/26/24 14:15 TEARS. PAPER TAPE OK azithromycin (From Zithromax) Allergy Rash Verified 09/26/24 14:15 cefuroxime sodium (From Allergy Rash Verified 09/26/24 14:15 Zinacef) clindamycin Allergy Hives Verified 09/26/24 14:15 Sulfa (Sulfonamide Allergy Rash Verified 09/26/24 14:15 Antibiotics) atenolol AdvReac Severe Peripheal Verified 09/26/24 14:15 edema & cough metoprolol (From Toprol XL) AdvReac Severe Peripheral Verified 09/26/24 14:15 edema & cough duloxetine (From Cymbalta) AdvReac Intermediate made me Verified 09/26/24 14:15 feel really sick nitrofurantoin AdvReac Mild unknown Verified 09/26/24 14:15 macrocrystalline (From Macrodantin) atorvastatin AdvReac Unknown myalgias Verified 09/26/24 14:15 gabapentin AdvReac Unknown Vision Verified 09/26/24 14:15 changes Corticosteroids AdvReac Other Verified 09/26/24 14:15 (Glucocorticoids) oxycodone HCl (From Percocet) AdvReac Vomiting Verified 09/26/24 14:15 Family History Mother Hypertension Diabetes Heart disease Pulmonary embolism Father Perforated ulcer Respiratory failure Sister Asthma Hypertension Surgical History History of total left hip replacement Status post total hip replacement, left Status post hip replacement S/P hip replacement Hx of vein stripping S/P hysterectomy History of appendectomy History of cardioversion (~12/2016) History of left heart catheterization H/O hernia repair H/O foot surgery H/O shoulder surgery H/O section H/O: hysterectomy Social History household members: none Smoking Status: Former smoker quit date: 02/14/75 pack-years: 3 second hand exposure: No alcohol intake: never substance use type: does not use caffeine: No what type of physical activity do you participate in: none ROS Constitutional Constitutional: Reports other Details: Joint pain, fevers Eyes Eyes: Reports systems reviewed and no addt'l complaints, except as documented ENT HEENT: Reports other Details: Reported cough Cardiovascular Cardiovascular: Reports systems reviewed and no addt'l complaints, except as documented Respiratory/Chest Respiratory/Chest: Reports systems reviewed and no addt'l complaints, except as documented Gastrointestinal Gastrointestinal: Reports systems reviewed and no addt'l complaints, except as documented Genitourinary Genitourinary: Reports systems reviewed and no addt'l complaints, except as documented Musculoskeletal Musculoskeletal: Reports stiffness Integumentary Integumentary: Reports systems reviewed and no addt'l complaints, except as documented Neurologic Neurologic: Reports systems reviewed and no addt'l complaints, except as documented Psychiatric Psychiatric: Reports systems reviewed and no addt'l complaints, except as documented Vital Signs Vital Signs Vital Signs: 09/26/24 15:23 09/26/24 17:00 09/26/24 17:16 Temperature 99.2 F H Temperature Source Oral Pulse Rate 99 Respiratory Rate 18 Respiratory Effort Normal Respiratory Depth Respiratory Pattern Blood Pressure 155/73 H Blood Pressure Mean 100 Blood Pressure Source Blood Pressure Position Blood Pressure Location Pulse Ox 100 Oxygen Delivery Method Room Air Room Air Room Air 09/26/24 18:53 09/26/24 20:03 09/26/24 22:00 Temperature 98.5 F Temperature Source Oral Pulse Rate 85 106 H Respiratory Rate 18 16 Respiratory Effort Normal Non-Labored Respiratory Depth Normal Respiratory Pattern Normal Normal Blood Pressure 116/61 Blood Pressure Mean 79 Blood Pressure Source Monitor Blood Pressure Position Semi-Fowlers Blood Pressure Location Left Arm Pulse Ox 95 Oxygen Delivery Method Room Air Room Air 09/27/24 02:25 09/27/24 02:28 09/27/24 02:30 Temperature 98.3 F 98.3 F Temperature Source Oral Oral Pulse Rate 97 97 Respiratory Rate 18 18 Respiratory Effort Normal Non-Labored Respiratory Depth Normal Respiratory Pattern Normal Blood Pressure 114/55 L 114/55 L Blood Pressure Mean 74 74 Blood Pressure Source Monitor Blood Pressure Position Semi-Fowlers Blood Pressure Location Left Arm Pulse Ox 95 95 Oxygen Delivery Method Room Air Room Air Room Air 09/27/24 06:51 09/27/24 08:30 09/27/24 09:01 Temperature 98.2 F 98.2 F Temperature Source Oral Oral Pulse Rate 84 96 97 Respiratory Rate 18 16 17 Respiratory Effort Respiratory Depth Respiratory Pattern Normal Blood Pressure 116/60 116/60 Blood Pressure Mean 78 78 Blood Pressure Source Monitor Blood Pressure Position Semi-Fowlers Blood Pressure Location Left Arm Pulse Ox 96 95 Oxygen Delivery Method Room Air Room Air 09/27/24 09:02 09/27/24 13:34 Temperature Temperature Source Pulse Rate 86 Respiratory Rate 18 Respiratory Effort Normal Non-Labored Respiratory Depth Normal Respiratory Pattern Normal Normal Blood Pressure Blood Pressure Mean Blood Pressure Source Blood Pressure Position Blood Pressure Location Pulse Ox 95 Oxygen Delivery Method Room Air Weight Weight: 180 lb 5.41 oz Body Mass Index (BMI) 34.0 Physical Exam Const alert and oriented x3 HEENT normocephalic Eyes PERRL Neck no JVD Resp normal respiratory effort Cardio Cardio Narrative: Regular pulse rate GI non-distended Extremity Extremity Narrative: Left lower extremity: No erythema is appreciated. Patient does have vascular skin changes around the distal one third of the leg. Patient has chronic bunion in the foot. No foot ulcers are noted. The left knee is painful with palpation medial and lateral joint lines. Patient tolerates short arc range of motion however has pain with crepitus with passive motion. Active motion to 80 degrees flexion with a 10 degree flexion contracture. Stable to varus and valgus stress. Moderate swelling of the joint however minimal fluid wave likely in relation to underlying osteophytes. No erythema of the knee. Skin Skin Narrative: Left lower extremity has vasculopathy skin changes distally. Neuro CN's II-XII intact bilaterally Psych mental status grossly normal Medical Records Data Attestation: I reviewed the patient's medical records Lab / Micro Data 09/27/24 05:20 09/27/24 05:20 Labs: Laboratory Results - last 24 hr 09/26/24 11:41: C-React Prot Ext Range 65.80 H, Procalcitonin 0.11, Rheumatoid Factor < 10.0 09/26/24 12:30: ESR 41 H 09/26/24 16:16: DORETHA-1 Antibody TNP, Sm (Dinero) Antibody TNP, PRECISION MILLWRIGHT Antibody TNP, Scl-70 Scleroderma Ab TNP, Antichromatin Antibodies TNP, Centromere B Antibody TNP 09/27/24 05:20: WBC 2.9 L, RBC 3.34 L, Hgb 9.5 L, Hct 31.0 L, MCV 92.8, MCH 28.4, MCHC 30.6 L, RDW Std Deviation 52.4 H, RDW Coeff of Lanre 15.5 H, Plt Count 287, MPV 10.9, Immature Gran % (Auto) 3.100 H, Neut % (Auto) 35.1 L, Lymph % (Auto) 42.0 H, [place] % (Auto) 18.8 H, Eos % (Auto) 0.0, Baso % (Auto) 1.0, Absolute Neuts (auto) 1.0 L, Absolute Lymphs (auto) 1.23, Nucleated RBC % 0, ESR 28, Sodium 142, Potassium 5.1, Chloride 106, Carbon Dioxide 24.5, Anion Gap 12, BUN 15, Creatinine 1.02, Estim Creat Clear Calc 49.75 L, Est GFR (MDRD) Non-Af 59 L, BUN/Creatinine Ratio 15.0, Glucose 94, Calcium 9.1, Total Bilirubin 0.21, AST 22, ALT 13, Alkaline Phosphatase 91, C-React Prot Ext Range 42.50 H, Total Protein 7.1, Albumin 2.9 L, Globulin 4.2, Albumin/Globulin Ratio 0.7 L, Procalcitonin 0.10, TSH 2.710 Micro: Microbiology 09/26/24 16:53 Mucosa - Nose Streptococcus pyogenes (PCR) - Final 09/26/24 16:53 Mucosa - Nose SARS-CoV-2, Influenza & RSV (PCR) - Final 09/26/24 11:35 Mucosa - Nose Respiratory Panel (PCR) - Final Imaging Radiology Impression Chest/Abdomen/Pelvis CT 09/26/24 15:23 IMPRESSION: 1. No acute findings in the chest, abdomen or pelvis. 2. Stable bilateral pulmonary nodules as described above. 3. Bibasilar dependent atelectasis and parenchymal lung scarring. 4. Colonic stool burden suggesting constipation. Reading Location: [facility] Knee X-Ray 09/27/24 14:26 IMPRESSION: DEGENERATIVE OSTEOARTHROSIS. NO ACUTE FINDINGS. Reading Location: [facility] Independent review of left knee x-rays shows severe osteoarthritis tricompartmental with bony erosion subchondral: Sclerosis [id number] joint space narrowing and valgus alignment. Assessment & Plan Assessment/Plan (1) Left knee pain: PLAN: Patient has severe left knee osteoarthritis. She has recent sepsis and coinciding left knee increasing pain. She has classic symptoms of osteoarthritis and severe osteoarthritis on the x-ray however with these recent changes symptoms and her marked decrease in white blood cell count she may have a uncommon infectious response. Based on this I did explain to the patient it would likely be appropriate to proceed with a aspiration of the knee. Patient was agreeable to this. Procedure as noted below. After aspirating the knee about 2 cc of synovial fluid which was slightly cloudy but nonpurulent was aspirated from the knee. Slightly blood-tinged as well. Fluid was sent for culture Gram stain and cell count. Based on the amount of fluid may be hard pressed to get the cell count. Ultimately, based on her blood counts probably most reliable results will be culture and Gram stain. Continue to follow these if negative would recommend continued symptomatic care and focus on other source of fever. Patient is known to us at our practice and can follow-up as she feels appropriate upon discharge if everything is negative. At this point I am doubtful based on the clinical presentation of the patient as well as the aspirate that the knee is a source of infection. Will follow results peripherally. If positive will reevaluate treatment plan and patient. Please call orthopedics with further questions. Procedure: Patient's lateral supra patellar portal was palpated on her left knee. This area was cleaned with alcohol swabs. 18-gauge needle was introduced into the knee after donning gloves and aspiration was attempted. About 1 cc of bloody fluid was obtained after multiple attempts to redirect. Patient was increasingly uncomfortable. As noted during the exam there was minimal fluid wave to help express the fluid. Based on this we did remove the 18-gauge needle. We redirected our attention to the medial suprapatellar portal after giving the patient immense catch of breath carefully palpated this area and prepped in a sterile fashion with alcohol swabs. An 18-gauge needle was used on this side and 2 cc of synovial fluid with small amount of cloudiness but not grossly purulent was aspirated from the knee. There is also a tinge of blood. Fluid was carefully placed 1 cc in a purple top tube and 1 cc in red top tube and sent to the lab. [facility] Office: (2) Unilateral primary osteoarthritis, left knee: (3) Valgus deformity, not elsewhere classified, left knee: (4) Neutropenic fever: (5) Neutropenia: QUALIFIERS: Neutropenia type: unspecified Qualified Code(s): D70.9 - Neutropenia, unspecified (6) Current use of mcfp anticoagulation: (7) Heart failure with preserved ejection fraction: QUALIFIERS: Heart failure chronicity: chronic Qualified Code(s): I50.32 - Chronic diastolic (congestive) heart failure (8) Chronic kidney disease, stage 3a: (9) Diabetes mellitus:
[2024-09-27 18:44] LABS: Synovial Fld Mononuclear WBC # 0.230 10^3/ul; Synovial Fld Mononuclear WBC % 21.1 %; Synovial Fld Polynuclear WBC # 0.859 10^3/uL; Synovial Fld Polynuclear WBC % 78.9 %
[2024-09-27 18:52] LABS: RBC /Synovial Fluid 0.380 10^6/uL (0); Total Cell Count Synovial Fld 11.3300 10^3/uL (0.000-0.000); WBC / Synovial Fluid 10.8900 10^3/uL (0.000-0.002)
[2024-09-27 18:53] LABS: AUTO B FLUID DILUENT BKGD CT WBC <0.1 RBC <0.01 (W<.1,R<.01); Source- Body Fluid SYNOVIAL
[2024-09-27 18:54] LABS: Color / Synovial Fluid Red (Pale Yellow); Source / Synovial Fluid LEFT KNEE
[2024-09-27 18:57] LABS: Appearance /Synovial Fluid Cloudy (CLEAR)
[2024-09-27 21:34] LABS: Monocyte /Synovial Fluid 7 %
[2024-09-27] MEDS: Latanoprost 0.005% 1 Bottle 1 DRP EACH EYE (21:50)
[2024-09-27] MEDS: 0.9% Saline Lock 10 ML Syringe IV (21:50)
[2024-09-27 22:18] LABS: Body Fluid QC Type(s) BF3Q,BF4Q; CRYSTALS, BODY FLUID NO CRYSTALS SEEN
[2024-09-28 02:56] VITALS: BP 123/65; PULSE 86; RESP 17; TEMP 36.5; O2SAT 98
[2024-09-28 06:06] LABS: Hematocrit 30.7 % (37-47); Hemoglobin 9.2 g/dL (12.0-15.0); Immature Granulocytes Count 0.110 X10^3/uL (0.0-0.0); Mean Corp Hgb Conc 30.0 g/dL (32-36); Mean Corpuscular Volume 93.0 fL (81-99); Mean Platelet Vol. 10.9 fl (6.2-12.0); NRBC Flagged by Analyzer 0 % (0-5); Platelet Count 266 K/mm3 (150-450); RBC Distribution Width CV 15.3 % (11.6-14.6); RBC Distribution Width SD 52.1 fl (35.1-43.9); Red Blood Count 3.30 M/mm3 (4.2-5.4); White Blood Count 3.2 K/mm3 (4.4-11.0)
[2024-09-28 06:38] LABS: Anion Gap 10 (5-15); BUN 18 mg/dL (4-19); BUN/Creat Ratio 17.0 RATIO (10-20); Calcium,Total 9.0 mg/dL (7.6-11.0); Carbon Dioxide 25.9 mmol/L (21.0-32.0); Chloride 105 mmol/L (98-108); Estimated Creatinine Clearance 49.26 ml/min (50-250); Glucose 104 mg/dL (70-99); Potassium 4.3 mmol/L (3.3-5.1)
[2024-09-28] MEDS: Albuterol 2.5 MG/3 ML VIAL.NEB. INHALATION (07:02)
[2024-09-28] MEDS: Budesonide Respules 0.5 MG/2 ML AMPUL.NEB. INHALATION (07:02)
[2024-09-28 07:05] VITALS: PULSE 92; RESP 18; O2SAT 98
[2024-09-28] MEDS: Meropenem 1 GM in 0.9% Normal Saline (100mL MB+) 100 ML IV (07:52)
[2024-09-28] MEDS: 0.9% Saline Lock 10 ML Syringe IV (07:52)
[2024-09-28] MEDS: APIXABAN 5 MG TABLET PO (07:53)
[2024-09-28] MEDS: Lactobacillis Acidophilus 1 CAP PO (07:53)
[2024-09-28] MEDS: Potassium Chloride Oral Tablet 20 MEQ PO (07:53)
[2024-09-28 08:46] VITALS: BP 118/57; PULSE 96; RESP 16; TEMP 37.1; O2SAT 98
--- NOTE | 2024-09-28 10:10 | PN.HOSP_ITS ---
Subjective Subjective Had her knee drained yesterday awaiting culture, synovial white blood count were 11,000 with 88% neutrophils. Autoimmune workup still pending Objective Data Objective Data Vital Signs: Vital Signs Temp Pulse Resp BP Pulse Ox O2 Del Method 98.8 F 96 16 118/57 L 98 Room Air 09/28/24 08:46 09/28/24 08:46 09/28/24 08:46 09/28/24 08:46 09/28/24 08:46 09/28/24 08:47 Oxygen Delivery Method Room Air Weight: 180 lb 5.41 oz Body Mass Index (BMI) 34.0 Intake & Output: Intake and Output for Last 24 Hours 09/27/24 09/28/24 09/29/24 03:59 03:59 03:59 Intake Total 1840 / 1840 1225 / 1225 300 / 300 Balance 1840 / 1840 1225 / 1225 300 / 300 Lab / Micro Data 09/28/24 05:23 09/28/24 05:23 Labs: Laboratory Results - last 24 hr 09/27/24 15:05: Fluid Source Cancelled, Fluid Color Cancelled, Fluid Appearance Cancelled, Fluid WBC Cancelled, Fluid RBC Cancelled, Fluid Tot Cell Count Cancelled, Fld Polynuclear WBCs # Cancelled, Fld Polynuclear WBCs % Cancelled, Fluid Mononuclear WBCs Cancelled, Fld Mononuclear WBCs % Cancelled, Fluid Neutrophils Cancelled, Fluid Lymphocytes Cancelled, Fluid Monocytes Cancelled, Fluid Plasma Cells Cancelled, Fluid Macrophages Cancelled, Fld Mesothelial Cells Cancelled, Fluid Other Cells Cancelled, Fluid Crystals NO CRYSTALS SEEN, Fluid Crystal Source SYNOVIAL, Fl Crystal Path Review Will follow, Fl Pathologist Comment Cancelled, Fluid Comment 2 Cancelled, Synovial Source LEFT KNEE, Synovial Color Red, Synovial Appearance Cloudy, Synovial WBC 10.8900 H, Synovial RBC 0.380 H, Synovial Tot Cell Ct 11.3300 H, Synov Polynuclear WBCs 0.859, Synov Mononuclear WBCs 0.230, Synovial Neutrophils 88 H, Synovial Lymphocytes 5, Synovial Monocytes 7, Synovial Polynuclear % 78.9, Synovial Mononuclear % 21.1, Synovial Path Comment May follow 09/28/24 05:23: WBC 3.2 L, RBC 3.30 L, Hgb 9.2 L, Hct 30.7 L, MCV 93.0, MCH 27.9, MCHC 30.0 L, RDW Std Deviation 52.1 H, RDW Coeff of Lanre 15.3 H, Plt Count 266, MPV 10.9, Immature Gran % (Auto) 3.400 H, Neut % (Auto) 41.0 L, Lymph % (Auto) 40.1, [place] % (Auto) 14.6 H, Eos % (Auto) 0.0, Baso % (Auto) 0.9, Absolute Neuts (auto) 1.3 L, Absolute Lymphs (auto) 1.29, Nucleated RBC % 0, Sodium 141, Potassium 4.3, Chloride 105, Carbon Dioxide 25.9, Anion Gap 10, BUN 18, Creatinine 1.03, Estim Creat Clear Calc 49.26 L, Est GFR (MDRD) Non-Af 58 L, BUN/Creatinine Ratio 17.0, Glucose 104 H, Calcium 9.0 Micro: Microbiology 09/27/24 15:05 Fluid - Synovial (joint) Body Fluid Culture - Preliminary No growth-Final to follow 09/26/24 16:53 Mucosa - Nose Streptococcus pyogenes (PCR) - Final 09/26/24 16:53 Mucosa - Nose SARS-CoV-2, Influenza & RSV (PCR) - Final 09/26/24 11:35 Mucosa - Nose Respiratory Panel (PCR) - Final Radiography Diagnostic Testing: Radiology Impression Knee X-Ray 09/27/24 14:26 IMPRESSION: DEGENERATIVE OSTEOARTHROSIS. NO ACUTE FINDINGS. Reading Location: [facility] Physical Exam Narrative General: Alert, Oriented x3, Cooperative, No apparent distress HEENT: Atraumatic, PERRLA, EOMI, Normocephalic Oral: Moist Mucosa Neck: Supple, No JVD Lungs: Diminished, Normal air movement, No rhonchi, No wheeze, No rales Cardiovascular: Regular rate, Regular Rhythm, Normal S1, Normal S2, No murmurs Abdomen: Soft, Non Tender, Non-Distended, No Hepato-splenomegaly Extremities: Trace edema, Capillary Refill Less than 3 Seconds Skin: Bilateral lower extremity rash, she states she has intermittent petechial rashes Musculoskeletal: No Tenderness to Palpation of Joints or Extremities Neurological: No focal neurological deficits, Motor Exam 5/5 strength throughout, Sensory exam intact to light touch and pain Psych/Mental Status: Normal Affect, Appropriate Assessment & Plan Assessment/Plan (1) Fever of unknown origin: (2) Neutropenia: QUALIFIERS: Neutropenia type: unspecified Qualified Code(s): D 70.9 - Neutropenia, unspecified PLAN: Plan 1. Fever of unknown origin with new onset neutropenia ? CT of the chest abdomen pelvis is unremarkable, she has stable nodules in her lungs with no lymphadenopathy ? Continue with broad-spectrum antibiotics per ID, appreciate Ortho's assistance with her knee tap yesterday ? Hematology does not feel that the neutropenia has anything to do with marrow suppression and potentially infectious related versus antibiotic related ? She denies any possible exposure to tickborne illnesses, she does not go outside frequently and does not have any pets that could potentially bring it take into the home though it may be beneficial at some point to test for Lyme disease if that this has not been done in the past ? 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 Neutropenia continues to improve 2. Essential HTN/HLD/paroxysmal A-fib ? Continue with her home blood pressure medications ? Continue with Eliquis ? Will monitor make adjustments as necessary ? Continue with Crestor 3. DM2 ? Continue with sliding scale insulin ? Accu-Cheks ACHS ? Will monitor make adjustments as necessary 4. Hypothyroidism ? Stable ? Continue with Synthroid 5. GERD ? Stable ? Continue with PPI 6. GAGAN/COPD ? Not in exacerbation ? Continue with her home medications DVT: Eliquis Charges/Coding Visit Charges Inpatient E&M: 44293 Subs Hosp L2
[2024-09-28 12:09] LABS: Anti-Chromatin <0.2 AI (0.0-0.9); Anti-Jo <0.2 AI (0.0-0.9); Anti-dsDNA Ab <1 IU/mL (0-9); SJOGREN'S Anti-SS-A test < 0.2 AI (0.0-0.9); SJOGREN'S Anti-SS-B test < 0.2 AI (0.0-0.9)
--- NOTE | 2024-09-28 12:29 | DCINST_ITS ---
Discharge Instructions DC O2, CPAP, BIPAP needs Home O2 Discharge instructions: No Dressing / Incision Discharge Activity: Return to Normal Activity Dressing / Incision Call your doctor if you observe: Fever of 101 or Higher, Shortness of breath, Dizziness, Fainting spells, Swelling in the ankles, Chest pain and Increased palpitations (irregular heartbeat) Follow Up Care Test Results: Test results from this visit will be discussed in further detail at your follow- up appointment, if applicable. Discharge Plan Admission Admit Date/Time: 09/26/24 14:41 Attending Provider: Rolo Mcgarry Primary Care Provider: Terry Donnelly Consulting Providers: Peter Orta; Ottoniel Chi; Lul Garzon; Pollo Bassett; Nader Mesa; Peter Tyler; Jensen [place]; Damir Charles; Travis Fajardo; Angelika Cunningham NP; Valerie Harden; Nathaniel Reynoso Discharge Orders/Prescriptions Prescriptions: Continued esomeprazole magnesium [Nexium] 40 mg capsule,delayed release(DR/EC) 40 mg PO DAILY potassium chloride 20 mEq tablet,ER particles/crystals 20 meq PO BID semaglutide (weight loss) 0.5 mg/0.5 mL pen injector 1 mg subcut QWEEK Rx Instructions: administer weeks 5 through 8 of therapy latanoprost 0.005 % drops 1 drp ophthalmic (eye) QPM Rx Instructions: BOTH EYES ipratropium bromide 42 mcg (0.06 %) spray,non-aerosol 2 spray intranasal TID PRN (Reason: DRY NOSE) Patient Comments: Does not use routinely b/c it makes her have nosebleeds. Eliquis 5 mg tablet 5 mg PO BID Qty: 180 3RF diltiazem HCl [Cardizem CD] 180 mg capsule,extended release 24hr 180 mg PO DAILY Qty: 90 3RF Rx Instructions: Hold for heart less than 60 or systolic blood pressure less than 100 mmHg. levothyroxine 25 mcg tablet 25 mcg PO DAILY@0600 Patient Comments: thyroid furosemide [Lasix] 40 mg tablet 40 mg PO BID cholecalciferol (vitamin D3) 50 mcg (2,000 unit) Capsule 50 mcg PO DAILY ferrous sulfate 325 MG tablet 325 mg PO DAILY Rx Instructions: Take 1 hour before doxycycline or in empty stomach while patient is on doxycycline to avoid drug drug interaction. acetaminophen 500 mg tablet 1,000 mg PO Q8 PRN (Reason: pain of temp > 101) Qty: 0 0RF ondansetron 4 mg tablet,disintegrating 4 mg PO Q6H PRN (Reason: nausea and vomiting) Qty: 20 0RF Patient Comments: Pt ran out of this medicine and was taking it while getting outpt ATB's. calcitriol 0.25 mcg capsule 0.25 mcg PO DAILY latanoprost [Xalatan] 0.005 % drops 1 drp EACH EYE QPM calcium carbonate 600 mg calcium (1,500 mg) tablet 600 mg PO DAILY Probiotic tablet fluticasone propion-salmeterol [Advair HFA] inhalation ibuprofen [IBU] 400 mg tablet 400 mg PO Q8H PRN (Reason: fever) albuterol sulfate 2.5 mg /3 mL (0.083 %) solution for nebulization 2.5 mg INHALATION Q4H PRN Qty: 180 6RF Rx Instructions: Use q4 hours and PRN for wheezing albuterol sulfate [Ventolin HFA] 90 mcg/actuation HFA aerosol inhaler 2 puff inhalation Q4H PRN (Reason: shortness of breath or wheezing) Qty: 3 3RF montelukast [Singulair] 10 mg tablet 10 mg PO QHS Qty: 90 3RF fluticasone propion-salmeterol [Advair HFA] 230-21 mcg/actuation HFA aerosol inhaler 2 puff INHALATION BID Qty: 3 3RF rosuvastatin 5 mg tablet 5 mg PO QDAY Qty: 90 3RF Referrals / Follow Up: Terry Donnelly MD [Primary Care Provider] - Within 1 Week Disposition Disposition (needs filled in before D/C Order can be placed): Home, Self Care
--- NOTE | 2024-09-28 12:44 | PCM.PN.ID ---
Physical Exam Narrative Feeling better, no fever, no abd pain, minimal cough. Off O2. Const alert and no apparent distress General Appearance: cooperative Resp Auscultation: wheezes Cardio regular rate and regular rhythm GI soft to palpation, non-tender and non-distended Skin no rashes or lesions noted ID ID: Route of nutrition/ use of supplements: [] Nutritional Intake: [] IV Site: [] Liz Catheter: [] Assessment & Plan Assessment/Plan (1) Neutropenic fever: PLAN: May have been caused by recent course of cefepime. Line was removed as an outpt. ANC now 1300 this AM, so she is recovering. Infectious workup neg so far. Chest relatively clear on CT. Aspiration of L knee done, cx neg so far. Ok for home off of abx. Will follow prn, d/w Dr. Mcgarry
--- NOTE | 2024-09-28 13:15 | PHA.DC.MR.R ---
Pharmacy [place] Med Reconciliation Pharmacy Service has performed discharge medication reconciliation for this patient. The patient's discharge medication list was reviewed for discrepancies and discrepancies were resolved. Medications at Discharge Home Medications levothyroxine 25 mcg tablet 25 mcg PO DAILY@0600 thyroid 01/04/20 cholecalciferol (vitamin D3) 50 mcg (2,000 unit) capsule 50 mcg PO DAILY SUPPLEMENT 09/19/20 furosemide 40 mg tablet (Lasix) 40 mg PO BID water pill 09/19/20 esomeprazole magnesium 40 mg capsule,delayed release (Nexium) 40 mg PO DAILY reflux 10/13/20 potassium chloride 20 mEq tablet,extended release(part/cryst) 20 meq PO BID supplement 10/13/20 ferrous sulfate 325 mg (65 mg iron) tablet 325 mg PO DAILY anemia 06/26/21 acetaminophen 500 mg tablet 1,000 mg (2 x 500 mg) PO Q8 PRN pain of temp > 101 #0 tabs 07/14/21 albuterol sulfate 2.5 mg/3 mL (0.083 %) solution for nebulization 2.5 mg (3 mL) inhalation Q4H PRN breathing #180 vials 05/17/22 ipratropium bromide 42 mcg (0.06 %) nasal spray 2 spray intranasal TID PRN DRY NOSE 03/10/23 latanoprost 0.005 % eye drops 1 drp ophthalmic (eye) QPM eye 03/10/23 albuterol sulfate 90 mcg/actuation aerosol inhaler (Ventolin HFA) 2 puff inhalation Q4H PRN shortness of breath or wheezing #3 ea 09/14/23 semaglutide (weight loss) 0.5 mg/0.5 mL subcutaneous pen injector 1 mg subcut QWEEK diabetic 09/28/23 montelukast 10 mg tablet (Singulair) 10 mg PO QHS asthma #90 tabs 11/29/23 fluticasone propionate 230 mcg-salmeterol 21 mcg/actuation HFA inhaler (Advair HFA) 2 puff inhalation BID lungs #3 ea 12/07/23 apixaban 5 mg tablet (Eliquis) 5 mg PO BID anticoagulant #180 tabs 05/16/24 diltiazem HCl 180 mg capsule,extended release 24 hr (Cardizem CD) 180 mg PO DAILY heart #90 caps 05/16/24 rosuvastatin 5 mg tablet 5 mg PO QDAY cholesterol #90 tabs 06/08/24 ondansetron 4 mg disintegrating tablet 4 mg PO Q6H PRN nausea and vomiting #20 tabs 09/06/24 Probiotic probiotic 09/26/24 calcitriol 0.25 mcg capsule 0.25 mcg PO DAILY 09/26/24 calcium carbonate 600 mg PO DAILY unknown 09/26/24 fluticasone propion-salmeterol inhalation lung 09/26/24 ibuprofen 400 mg tablet (IBU) 400 mg PO Q8H PRN fever 09/26/24 latanoprost 0.005 % eye drops (Xalatan) 1 drp EACH EYE QPM eye drops 09/26/24
--- NOTE | 2024-09-28 13:32 | DS.PCM_ITS ---
Providers Date of Admission: 09/26/24 Primary Care Physician: Dr. Terry Donnelly MD Consultations 09/26/24 15:23 Consult: Infectious Disease Routine Consulting Provider: Peter Orta Reason for Consult: fever of unknown origin EMERGENT Consult: No Notified: Yes Date Notified: 09/26/24 Time Notified: 14:56 Method of Notification: Verbal Consult: Oncology/Hematology Routine Consulting Provider: [facility] ([facility]) Reason for Consult: new onset neutropenia, requested by ID EMERGENT Consult: No Notified: Yes Date Notified: 09/26/24 Time Notified: 14:57 Method of Notification: Verbal 09/27/24 10:52 Consult: Orthopedics Routine Consulting Provider: Nathaniel Reynoso Reason for Consult: neutropenic fever, possible L knee septic arthritis EMERGENT Consult: No Notified: Yes Date Notified: 09/27/24 Time Notified: 11:54 Method of Notification: Text Reason For Visit: NEUTROPENIC FEVER Diagnosis Discharge Diagnosis (1) Neutropenic fever: Status: Acute Code(s): D70.9 - Neutropenia, unspecified; R50.81 - Fever presenting with conditions classified elsewhere Medications at Discharge Home Medications levothyroxine 25 mcg tablet 25 mcg PO DAILY@0600 thyroid 01/04/20 cholecalciferol (vitamin D3) 50 mcg (2,000 unit) capsule 50 mcg PO DAILY SUPPLEMENT 09/19/20 furosemide 40 mg tablet (Lasix) 40 mg PO BID water pill 09/19/20 esomeprazole magnesium 40 mg capsule,delayed release (Nexium) 40 mg PO DAILY reflux 10/13/20 potassium chloride 20 mEq tablet,extended release(part/cryst) 20 meq PO BID supplement 10/13/20 ferrous sulfate 325 mg (65 mg iron) tablet 325 mg PO DAILY anemia 06/26/21 acetaminophen 500 mg tablet 1,000 mg (2 x 500 mg) PO Q8 PRN pain of temp > 101 #0 tabs 07/14/21 albuterol sulfate 2.5 mg/3 mL (0.083 %) solution for nebulization 2.5 mg (3 mL) inhalation Q4H PRN breathing #180 vials 05/17/22 ipratropium bromide 42 mcg (0.06 %) nasal spray 2 spray intranasal TID PRN DRY NOSE 03/10/23 latanoprost 0.005 % eye drops 1 drp ophthalmic (eye) QPM eye 03/10/23 albuterol sulfate 90 mcg/actuation aerosol inhaler (Ventolin HFA) 2 puff inhalation Q4H PRN shortness of breath or wheezing #3 ea 09/14/23 semaglutide (weight loss) 0.5 mg/0.5 mL subcutaneous pen injector 1 mg subcut QWEEK diabetic 09/28/23 montelukast 10 mg tablet (Singulair) 10 mg PO QHS asthma #90 tabs 11/29/23 fluticasone propionate 230 mcg-salmeterol 21 mcg/actuation HFA inhaler (Advair HFA) 2 puff inhalation BID lungs #3 ea 12/07/23 apixaban 5 mg tablet (Eliquis) 5 mg PO BID anticoagulant #180 tabs 05/16/24 diltiazem HCl 180 mg capsule,extended release 24 hr (Cardizem CD) 180 mg PO DAILY heart #90 caps 05/16/24 rosuvastatin 5 mg tablet 5 mg PO QDAY cholesterol #90 tabs 06/08/24 ondansetron 4 mg disintegrating tablet 4 mg PO Q6H PRN nausea and vomiting #20 tabs 09/06/24 Probiotic probiotic 09/26/24 calcitriol 0.25 mcg capsule 0.25 mcg PO DAILY 09/26/24 calcium carbonate 600 mg PO DAILY unknown 09/26/24 fluticasone propion-salmeterol inhalation lung 09/26/24 ibuprofen 400 mg tablet (IBU) 400 mg PO Q8H PRN fever 09/26/24 latanoprost 0.005 % eye drops (Xalatan) 1 drp EACH EYE QPM eye drops 09/26/24 Hospital Course Operations None Procedures None Summary of Care Provided Minutes Spent on Discharge: 33 Hospital Course: Per HPI: LAURA SERRANO, is a 69-year-old female history of diabetes, bronchiectasis, A-fib, PE on Eliquis, hypertension, COPD, hypothyroidism presented to [facility] ED 09/26/24 for neutropenia and fevers. Patient follows with Dr. Orta with infectious disease and was recently started on IV cefepime for Pseudomonas pneumonia. She has since been off of the antibiotic however over the weekend developed fevers again and was found to have neutropenia so her infectious disease doctor sent her in for neutropenia workup and admission in addition to hematology consult. In the ED temp 99.4, heart rate of 99 with a blood pressure 153/98, respiratory rate 22 and pulse ox 100% on room air. CBC revealed white blood cell count of 2.5, hemoglobin 8.6, platelet count 238 and an ANC of 0.4. CMP revealed a slightly low bicarb of 18.5, BUN of 26 and a creatinine of 1.35. Liver function no acute abnormality. Chest x-ray with chronic changes as well as mild bilateral lower lung areas of discoid atelectasis or scarring. UA does not appear infectious. Lactic acid wnl. Patient given antibiotics and hospitalist contacted for admission. Patient seen at bedside. Patient reports she has been having problems since June with intermittent fatigue and fevers as well as joint pain everywhere. She reports she has been short of breath and fatigued when she is up moving around more so than usual and did have fevers and chills over the weekend with temp up to 101, has a chronic cough no feels like anything she has been coughing less after the antibiotics. She reports some nasal congestion and runny nose, occasionally gets headaches but not main complaint. Also reports intermittent petechial-like rash on limbs and abdomen and that she intermittently gets leg swelling left greater than right but reports she did have lower extremity duplex which ruled out DVT. Hospital Course: 1. Fever of unknown origin with new onset neutropenia due to cefepime ? CT of the chest abdomen pelvis is unremarkable, she has stable nodules in her lungs with no lymphadenopathy ? Continue with broad-spectrum antibiotics per ID, appreciate Ortho's assistance with her knee tap yesterday ? Hematology does not feel that the neutropenia has anything to do with marrow suppression and potentially infectious related versus antibiotic related ? She denies any possible exposure to tickborne illnesses, she does not go outside frequently and does not have any pets that could potentially bring it take into the home though it may be beneficial at some point to test for Lyme disease if that this has not been done in the past ? 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 Neutropenia continues to improve with the discontinuation of cefepime. I discussed the case with infectious disease who felt that she would be stable for discharge off of antibiotics as cultures so far all negative. Discharge was discussed and she expressed understanding of the risks and benefits of going home and is okay with going home today. 2. Essential hypertension, hyperlipidemia, paroxysmal A-fib, type 2 diabetes, hypothyroidism, GERD, GAGAN, COPD are all chronic medical conditions which complicate her care. Her home medications were continued with appropriate Weight / BMI Weight Weight: 180 lb 5.41 oz Body Mass Index (BMI) 34.0 ABG / Lab / Microbiology Data 09/28/24 05:23 09/28/24 05:23 Laboratory: Laboratory Results - last 24 hr 09/26/24 16:16: Cycl Citrul Peptide IgG 5, DORETHA-1 Antibody <0.2, SS-A/Ro IgG Antibody < 0.2, SS-B/La IgG Antibody < 0.2, Sm (Dinero) Antibody <0.2, SUR[employer]ILLANCE [employer] ENGINEER Antibody 0.3, Scl-70 Scleroderma Ab <0.2, Double Strand DNA Ab <1, Antichromatin Antibodies <0.2, Centromere B Antibody <0.2 09/27/24 15:05: Fluid Source Cancelled, Fluid Color Cancelled, Fluid Appearance Cancelled, Fluid WBC Cancelled, Fluid RBC Cancelled, Fluid Tot Cell Count Cancelled, Fld Polynuclear WBCs # Cancelled, Fld Polynuclear WBCs % Cancelled, Fluid Mononuclear WBCs Cancelled, Fld Mononuclear WBCs % Cancelled, Fluid Neutrophils Cancelled, Fluid Lymphocytes Cancelled, Fluid Monocytes Cancelled, Fluid Plasma Cells Cancelled, Fluid Macrophages Cancelled, Fld Mesothelial Cells Cancelled, Fluid Other Cells Cancelled, Fluid Crystals NO CRYSTALS SEEN, Fluid Crystal Source SYNOVIAL, Fl Crystal Path Review Reviewed, Fl Pathologist Comment Cancelled, Fluid Comment 2 Cancelled, Synovial Source LEFT KNEE, Synovial Color Red, Synovial Appearance Cloudy, Synovial WBC 10.8900 H, Synovial RBC 0.380 H, S ynovial Tot Cell Ct 11.3300 H, Synov Polynuclear WBCs 0.859, Synov Mononuclear WBCs 0.230, Synovial Neutrophils 88 H, Synovial Lymphocytes 5, Synovial Monocytes 7, Synovial Polynuclear % 78.9, Synovial Mononuclear % 21.1, Synovial Path Comment May follow 09/28/24 05:23: WBC 3.2 L, RBC 3.30 L, Hgb 9.2 L, Hct 30.7 L, MCV 93.0, MCH 27.9, MCHC 30.0 L, RDW Std Deviation 52.1 H, RDW Coeff of Lanre 15.3 H, Plt Count 266, MPV 10.9, Immature Gran % (Auto) 3.400 H, Neut % (Auto) 41.0 L, Lymph % (Auto) 40.1, [place] % (Auto) 14.6 H, Eos % (Auto) 0.0, Baso % (Auto) 0.9, Absolute Neuts (auto) 1.3 L, Absolute Lymphs (auto) 1.29, Nucleated RBC % 0, Sodium 141, Potassium 4.3, Chloride 105, Carbon Dioxide 25.9, Anion Gap 10, BUN 18, Creatinine 1.03, Estim Creat Clear Calc 49.26 L, Est GFR (MDRD) Non-Af 58 L, BUN/Creatinine Ratio 17.0, Glucose 104 H, Calcium 9.0 Microbiology: Microbiology 09/27/24 15:05 Fluid - Synovial (joint) Gram Stain - Final 09/27/24 15:05 Fluid - Synovial (joint) Body Fluid Culture - Preliminary No growth-Final to follow 09/26/24 16:53 Mucosa - Nose Streptococcus pyogenes (PCR) - Final 09/26/24 16:53 Mucosa - Nose SARS-CoV-2, Influenza & RSV (PCR) - Final 09/26/24 11:35 Mucosa - Nose Respiratory Panel (PCR) - Final Radiography Diagnostic Testing: Radiology Impression Knee X-Ray 09/27/24 14:26 IMPRESSION: DEGENERATIVE OSTEOARTHROSIS. NO ACUTE FINDINGS. Reading Location: [id number] D/C Instructions Call your doctor if you observe: Fever of 101 or Higher, Shortness of breath, Dizziness, Fainting spells, Swelling in the ankles, Chest pain and Increased palpitations (irregular heartbeat) DC O2, CPAP, BIPAP Needs Home O2 Discharge instructions: No Meaningful Use Info Meaningful Use Meaningful Use Diagnoses (Choose all that apply): None applicable Discharge Plan Admission Admit Date/Time: 09/26/24 14:41 Attending Provider: Rolo Mcgarry Primary Care Provider: Terry Donnelly Consulting Providers: Peter Orta; Ottoniel Chi; Lul Garzon; Pollo Bassett; Nader Mesa; Peter Tyler; [place]; Damir Charles; Travis Fajardo; Angelika Cunningham NP; Valerie Harden; Nathaniel Reynoso Discharge Orders/Prescriptions Prescriptions: Continued esomeprazole magnesium [Nexium] 40 mg capsule,delayed release(DR/EC) 40 mg PO DAILY potassium chloride 20 mEq tablet,ER particles/crystals 20 meq PO BID semaglutide (weight loss) 0.5 mg/0.5 mL pen injector 1 mg subcut QWEEK Rx Instructions: administer weeks 5 through 8 of therapy latanoprost 0.005 % drops 1 drp ophthalmic (eye) QPM Rx Instructions: BOTH EYES ipratropium bromide 42 mcg (0.06 %) spray,non-aerosol 2 spray intranasal TID PRN (Reason: DRY NOSE) Patient Comments: Does not use routinely b/c it makes her have nosebleeds. Eliquis 5 mg tablet 5 mg PO BID Qty: 180 3RF diltiazem HCl [Cardizem CD] 180 mg capsule,extended release 24hr 180 mg PO DAILY Qty: 90 3RF Rx Instructions: Hold for heart less than 60 or systolic blood pressure less than 100 mmHg. levothyroxine 25 mcg tablet 25 mcg PO DAILY@0600 Patient Comments: thyroid furosemide [Lasix] 40 mg tablet 40 mg PO BID cholecalciferol (vitamin D3) 50 mcg (2,000 unit) Capsule 50 mcg PO DAILY ferrous sulfate 325 MG tablet 325 mg PO DAILY Rx Instructions: Take 1 hour before doxycycline or in empty stomach while patient is on doxycycline to avoid drug drug interaction. acetaminophen 500 mg tablet 1,000 mg PO Q8 PRN (Reason: pain of temp > 101) Qty: 0 0RF ondansetron 4 mg tablet,disintegrating 4 mg PO Q6H PRN (Reason: nausea and vomiting) Qty: 20 0RF Patient Comments: Pt ran out of this medicine and was taking it while getting outpt ATB's. calcitriol 0.25 mcg capsule 0.25 mcg PO DAILY latanoprost [Xalatan] 0.005 % drops 1 drp EACH EYE QPM calcium carbonate 600 mg calcium (1,500 mg) tablet 600 mg PO DAILY Probiotic tablet fluticasone propion-salmeterol [Advair HFA] inhalation ibuprofen [IBU] 400 mg tablet 400 mg PO Q8H PRN (Reason: fever) albuterol sulfate 2.5 mg /3 mL (0.083 %) solution for nebulization 2.5 mg INHALATION Q4H PRN Qty: 180 6RF Rx Instructions: Use q4 hours and PRN for wheezing albuterol sulfate [Ventolin HFA] 90 mcg/actuation HFA aerosol inhaler 2 puff inhalation Q4H PRN (Reason: shortness of breath or wheezing) Qty: 3 3RF montelukast [Singulair] 10 mg tablet 10 mg PO QHS Qty: 90 3RF fluticasone propion-salmeterol [Advair HFA] 230-21 mcg/actuation HFA aerosol inhaler 2 puff INHALATION BID Qty: 3 3RF rosuvastatin 5 mg tablet 5 mg PO QDAY Qty: 90 3RF Referrals / Follow Up: Terry Donnelly MD [Primary Care Provider] - Within 1 Week Disposition Disposition (needs filled in before D/C Order can be placed): Home, Self Care Charges/Coding Visit Charges Inpatient E&M: 90005 Disch Hosp >30min
[2024-09-28 14:00] VITALS: BP 112/66; PULSE 88; RESP 16; TEMP 37.1; O2SAT 99
--- NOTE | 2024-09-28 14:08 | CASEMGMT ---
Patient has order for discharge. RN CM in to discuss needs at discharge. Patient denies needs at discharge. Patient had no further questions or concerns.
== END 2024-09-28 14:20 | disposition home or self-care (01) | DRG 809 ==
LOC: ED 14:16 → MS3 14:46
PROVIDERS: Specialist; Admitting Provider Internal Medicine; Emergency Provider Surgery; PCP Family Medicine; Visit Provider Family Medicine
DX: D70.2 Other drug-induced agranulocytosis (principal); I13.0 Hypertensive heart and chronic kidney disease with heart failure and stage 1 through stage 4 chronic kidney disease, or unspecified chronic kidney disease; I50.32 Chronic diastolic (congestive) heart failure; D63.1 Anemia in chronic kidney disease; E11.22 Type 2 diabetes mellitus with diabetic chronic kidney disease; J47.9 Bronchiectasis, uncomplicated; N18.31 Chronic kidney disease, stage 3a; E03.9 Hypothyroidism, unspecified; I48.0 Paroxysmal atrial fibrillation; E78.00 Pure hypercholesterolemia, unspecified; M17.12 Unilateral primary osteoarthritis, left knee; G47.33 Obstructive sleep apnea (adult) (pediatric); K21.9 Gastro-esophageal reflux disease without esophagitis; Z79.4 Long term (current) use of insulin; M25.50 Pain in unspecified joint; J44.9 Chronic obstructive pulmonary disease, unspecified; R50.2 Drug induced fever; T36.1X5A Adverse effect of cephalosporins and other beta-lactam antibiotics, initial encounter; G89.29 Other chronic pain; R21 Rash and other nonspecific skin eruption; Z79.01 Long term (current) use of anticoagulants; Z79.51 Long term (current) use of inhaled steroids; Z79.85 Long-term (current) use of injectable non-insulin antidiabetic drugs; Z79.890 Hormone replacement therapy; Z79.899 Other long term (current) drug therapy; Z87.891 Personal history of nicotine dependence; Z86.718 Personal history of other venous thrombosis and embolism; Z86.711 Personal history of pulmonary embolism
CPT/HCPCS: 36415; 71046; 71260; 73560; 74177; 80048; 80053; 81001; 83605; 84145; 84443; 85025; 85652; 86140; 86200; 86225; 86235; 86431; 87040; 87070; 87075; 87077; 87086; 87088; 87186; 87205; 87631; 87633; 87651; 89050; 89051; 89060; 93005; 94640; 94668; 99284; J2185; Q9967; A4216

== ENCOUNTER → 2024-10-11 | Outpatient (CLI) | payer MEDICARE, OTHER, SELFPAY ==
[2024-10-11 16:10] LABS: Hematocrit 31.9 % (37-47); Hemoglobin 9.7 g/dL (12.0-15.0); Immature Granulocytes Count 0.040 X10^3/uL (0.0-0.0); Mean Corp Hgb Conc 30.4 g/dL (32-36); Mean Corpuscular Volume 94.7 fL (81-99); Mean Platelet Vol. 10.5 fl (6.2-12.0); NRBC Flagged by Analyzer 0 % (0-5); Platelet Count 409 K/mm3 (150-450); RBC Distribution Width CV 16.6 % (11.6-14.6); RBC Distribution Width SD 56.7 fl (35.1-43.9); Red Blood Count 3.37 M/mm3 (4.2-5.4); White Blood Count 8.5 K/mm3 (4.4-11.0)
[2024-10-11 17:27] LABS: CRP 47.80 mg/L (0.0-3.0); Vitamin D,25 Hydroxy 64.1 ng/mL (30-100)
== END | disposition home or self-care (01) ==
LOC: LABSPEC 08:52
PROVIDERS: PCP Family Medicine; Referring Provider Internal Medicine Pulmonary Disease; Visit Provider Internal Medicine Pulmonary Disease
DX: J47.9 Bronchiectasis, uncomplicated (principal); D70.9 Neutropenia, unspecified
CPT/HCPCS: 36415; 82306; 85025; 86140; 87070; 87077; 87186; 87205

== ENCOUNTER → 2024-10-12 | Outpatient (CLI) | payer MEDICARE, OTHER, SELFPAY ==
--- NOTE | 2024-10-12 12:26 | BI_ITS ---
EXAM: SCRN MAMM (CAD)W/SUSHMA BILAT DATE: 10/12/2024 CLINICAL HISTORY: F, Age 69 y/o , SCREENING No family history. TECHNIQUE: Procedure Code: [id number] Modality: MG Procedure: SCRN MAMM (CAD)W/SUSHMA BILAT COMPARISON: Prior exam(s) dated January 27, 2022.. FINDINGS: TISSUE DENSITY: The breasts are almost entirely fatty. Bilateral Breast Mammographic Findings: No significant masses, calcifications or other abnormalities are identified. No suspicious masses, areas of developing architectural distortion, or suspicious calcifications. There has been no significant interval change. BI/SCRN MAMM (CAD)W/SUSHMA BILAT IMPRESSION: Stable screening bilateral mammogram. OVERALL FINAL ASSESSMENT BI-RADS 1: NEGATIVE. RECOMMENDATION: Routine annual follow-up in 1 Year A letter with findings and recommendations will be mailed to the patient. Reading Location: [place] [id number]
== END | disposition home or self-care (01) ==
LOC: OPBI 12:24
PROVIDERS: PCP Family Medicine; Referring Provider Family Medicine; Visit Provider Family Medicine
DX: Z12.31 Encounter for screening mammogram for malignant neoplasm of breast (principal)
CPT/HCPCS: 77063; 77067

== ENCOUNTER → 2024-11-14 | Outpatient (CLI) | payer MEDICARE, OTHER, SELFPAY ==
[2024-11-14 17:05] LABS: Cholesterol 123 mg/dL (<=200); Low Density Lipoprotein Calc. 44 mg/dL; Triglycerides 187 mg/dL; Very Low Density Lipoprotein 37 mg/dL (5-40); cholesterol:hdl ratio screen 2.96
[2024-11-14 17:09] LABS: AST(SGOT) 17 U/L (<=31); Alanine Aminotransfer ALT/SGPT 7 U/L (<=34); Albumin, Serum 3.9 g/dL (3.4-4.8); Alkaline Phosphatase 87 U/L (35-104); Bilirubin, Direct 0.09 mg/dL (0.00-0.30); Globulin 4.5 g/dL (2.2-4.2)
== END | disposition home or self-care (01) ==
LOC: LAB 15:38
PROVIDERS: PCP Family Medicine; Referring Provider Student in an Organized Health Care Education/Training Program; Visit Provider Student in an Organized Health Care Education/Training Program
DX: E78.5 Hyperlipidemia, unspecified (principal)
CPT/HCPCS: 36415; 80061; 80076

== ENCOUNTER → 2024-12-03 | Outpatient (CLI) | payer MEDICARE, OTHER, SELFPAY ==
[2024-12-03 14:52] LABS: Hematocrit 32.9 % (37-47); Hemoglobin 9.9 g/dL (12.0-15.0); Immature Granulocytes Count 0.030 X10^3/uL (0.0-0.0); Mean Corp Hgb Conc 30.1 g/dL (32-36); Mean Corpuscular Volume 95.1 fL (81-99); Mean Platelet Vol. 9.9 fl (6.2-12.0); NRBC Flagged by Analyzer 0 % (0-5); Platelet Count 394 K/mm3 (150-450); RBC Distribution Width CV 14.7 % (11.6-14.6); RBC Distribution Width SD 51.8 fl (35.1-43.9); Red Blood Count 3.46 M/mm3 (4.2-5.4); White Blood Count 7.9 K/mm3 (4.4-11.0)
== END | disposition home or self-care (01) ==
LOC: MFPLAB 12:02
PROVIDERS: PCP Family Medicine; Visit Provider Internal Medicine Pulmonary Disease
DX: J47.9 Bronchiectasis, uncomplicated (principal)
CPT/HCPCS: 36415; 85025